=== PATIENT | male | born 1965 | race Caucasian/White ===

== ENCOUNTER → 2016-03-28 | Outpatient (CLI) | payer BC ==
[~2016-03-28] MED LIST: GABA300C3 PO; IBUP80TA PO; PERCOCET PO; SOMA350T PO
--- NOTE | 2016-04-05 02:13 | ECWPNPC ---
PATIENT NAME: TAMARA MONROY : 1965 GENDER: MALE VISIT DATE: 03/28/2016 DISCHARGE DATE: 03/28/16 0956 VISIT LOCKED DATE TIME: PHYSICIAN: YAS ROBERTSON RESOURCE: YAS ROBERTSON REASON FOR APPOINTMENT 1. 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 PAIN THE PATIENT DESCRIBES THE PAIN... THE PATIENT DESCRIBES THE PAIN... THE PATIENT DESCRIBES THE PAIN... THE PATIENT DESCRIBES THE PAIN... FALL RISK SCREENING: SCREENING :NO FALLS IN THE PAST YEAR CURRENT MEDICATIONS TAKING MULTIVITAMINS OTC TABLET 1 TABLET ORALLY ONCE A DAY TAKING GABAPENTIN 300 MG CAPSULE 1 CAPSULE ORALLY THREE TIMES A DAY TAKING WELLBUTRIN XL 300 MG TABLET EXTENDED RELEASE 24 HOUR 1 TABLET IN THE MORNING ORALLY ONCE A DAY TAKING SOMA 350 MG TABLET 1 TAB ORALLY QHS PRN MDD1 TAKING IBUPROFEN 800 MG TABLET 1 TABLET ORALLY THREE TIMES A DAY TAKING VITAMIN D 2000 UNIT CAPSULE 1 CAPSULE ORALLY ONCE A DAY TAKING PERCOCET 5-325 MG TABLET 1 TABLET NEEDED ORALLY EVERY 6 HRSMDD4 NOT-TAKING MUCINEX 600 MG TABLET EXTENDED RELEASE 12 HOUR 1 TABLET NEEDED ORALLY EVERY 12 HRS NOT-TAKING SUDAFED 30 MG TABLET 1 TABLET NEEDED ORALLY EVERY 6 HRS MEDICATION LIST REVIEWED AND RECONCILED WITH THE PATIENT PAST MEDICAL HISTORY CHRONIC LOW BACK PAIN - DDD RIGHT ARM PAIN - BICEPS TENDON RUPTURE - [facility]THO - S/P SURGICAL REPAIR 2013 WITH RESIDUAL NUMBNESS AND PAIN - MACROCYTIC ANEMIA PULMONARY NODULES - CHEST CT 09/25/13 - MILD COPD, OLD GRANULOMATOUS DISEASE WITH CALCIFIED 11MM NODULE IN LLL, CALCIFIED LEFT HILAR NODES. 3MM NONCALCIFIED PULMONARY NODULE JUST ADJACENT TO AND CONTINUOS WITH OTHER PULMONARY NODULE. RECOMMEND F/U CT CHEST 09/25. - F/U CT DONE 08/03/15 - CHRONIC CHANGES, STABLE 3 MM NODULE C/W 09/25/13 - NO FURTHER IMAGING NEEDED VITAMIN D DEFICIENCY ALLERGIES PENICILLIN (FOR ALLERGIES USE ONLY): TOLD A CHILD TO NOT TAKE: ALLERGY SOCIAL HISTORY GENERAL: TOBACCO USE ARE YOU A:CURRENT SMOKER LEARNING BARRIERS / SPECIAL NEEDS ORIENTED TO PLAN OF CARE: PATIENT, PAIN MANAGEMENT PATIENT, ORIENTED TO PLAN OF CARE: PATIENT, PAIN MANAGEMENT PATIENT. NEW PATIENT PAIN DIARY TODAY'S VISITNOTES FROM 0-10, WHAT LEVEL IS YOUR PAIN TODAY?0 PAIN CLINIC PFS, CLERGY, PUBLIC HEALTH REFERRALS PFS REFERRAL NEEDED?NO CLERGY REFERRAL NEEDED?NO PUBLIC HEALTH REFERRAL NEEDED?NO WAS THE PROVIDER NOTIFIED OF ANY PERTINENT INFO?NO PFS REFERRAL NEEDED?NO CLERGY REFERRAL NEEDED?NO PUBLIC HEALTH REFERRAL NEEDED?NO WAS THE PROVIDER NOTIFIED OF ANY PERTINENT INFO?NO REVIEW OF SYSTEMS CONSTITUTIONAL: ANY CHANGE IN YOUR MEDICAL CONDITION? NO . CHILLS NO . FEVER NO . INFECTION: DO YOU HAVE NEW INFECTIONS? NO . DO YOU HAVE HISTORY OF MRSA? NO . MUSCULOSKELETAL: ANY NEW PATTERNS OF PAIN OR NUMBNESS? YES, PAIN GOING DOWN RIGHT SIDE . GASTROENTEROLOGY: ANY NEW CHANGE IN BOWEL CONTROL? NO . GENITOURINARY: ANY NEW CHANGE IN BLADDER CONTROL? NO . IS THERE A CHANCE YOU COULD BE ? NO . HEMATOLOGY/LYMPH: DO YOU TAKE ANY BLOOD THINNERS? (FOR EXAMPLE- COUMADIN, PLAVIX, AGGRENOX, PLATEL, PRADAXA, OR XARELTO) NO . WHEN WAS YOUR LAST DOSE? DATE: TIME: . NEUROLOGY: HAVE YOU FALLEN IN THE PAST 6 MONTHS? YES, SATURDAY FELL DOWN WHILE TAKING A WASHER OUTSIDE . ANY NEW EXTREMITY NUMBNESS OR WEAKNESS? NO . CARDIOLOGY: DO YOU HAVE A PACEMAKER OR DEFIBRILLATOR? NO . RESPIRATORY: HAVE YOU BEEN SICK IN THE PAST WEEK? NO . FEVER NO . FLU LIKE SYMPTOMS? NO . COUGH NO . INTEGUMENTARY: DO YOU HAVE ANY RASHES OR OPEN SORES? NO . ALLERGIC/IMMUNO: ARE YOU ALLERGIC TO SHELLFISH OR IV DYE? NO . ANY NEW ALLERGIES? NO . PSYCHIATRIC: DO YOU HAVE THOUGHTS OF HURTING YOURSELF OR SOMEONE ELSE? NO . ARE YOU ABUSED, NEGLECTED, OR IN AN UNSAFE ENVIRONMENT? NO . ENDOCRINOLOGY: ARE YOU DIABETIC? NO . OTHER: DO YOU NEED ANY PRESCRIPTIONS? YES . IF YES, PLEASE LIST: GABAPENTIN . ANY NEW PROBLEMS WITH YOUR MEDICATIONS? NO . WHEN DID YOU LAST EAT? ____ . WHEN DID YOU LAST DRINK? ____ . WHAT DID YOU LAST DRINK? ____ . NAME OF PERSON DRIVING YOU HOME? ____ . DO YOU HAVE ANY OTHER QUESTIONS OR CONCERNS NO . REVIEWED BY: PROVIDER: YAS WHYTE . VITAL SIGNS WT 135 LBS, HT 69 IN, BMI 19.93 INDEX, BP 126/86 MM HG, HR 78 /MIN, RR 18 /MIN, TEMP 96.0 F, OXYGEN SAT % 97%, REVIEWED BY: CS. EXAMINATION GENERAL EXAMINATION: LUNGS:LUNG SOUNDS ARE CLEAR. HEART:HEART RATE REGULAR. MUSCULOSKELETAL:*, MUSCLE STRENGTH TESTING 03/18LEFT 04/15 RIGHT, PALPATION: + FOR PAIN OVER L/S SPINE. + FOR PAIN OVER PARASPINALS L>R.SPECIFIC POINT TENDERNESS LEFT SIJ.. 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 BRINGS IN MEDICATIONS WHICH IS APPROPRIATE FOR WHAT WAS DISPENSED. RECENT URINE TOXICOLOGY REVIEWED. NO UNAUTHORIZED MEDICATIONS. NO ILLICIT SUBSTANCES AND PRESCRIBED MEDICATIONS WERE PRESENT. , RISKS AND BENEFITS OF NARCOTIC/OPIOD MEDICATIONS WERE REVIEWED WITH PATIENT - THIS INCLUDES BUT IS NOT LIMITED TO RISK OF DEPENDANCE/DEVELOPMENT OF ADDICTION, MOOD DISTURBANCE AND DEPRESSION, OSTEOPOROSIS, HORMONAL AND LABIDAL CHANGES, RESPIRATORY DEPRESSION AND . PATIENT IS ADVISED NOT TO DRIVE WHILE ON THESE MEDICATIONS. PROCEDURE CODES FA211 ESTABILISHED PATIENT [facility] CHARGE DISPOSITION & COMMUNICATION FOLLOW UP 5 DAYS POST PROC (REASON: LEFT SIJ) ELECTRONICALLY SIGNED BY PATO DANIEL ON 04/04/2016 AT 07:48 PM EST DISCLAIMER : THIS IS A VISIT SUMMARY EXTRACTED FROM THE [employer] CHART. IT IS NOT A COPY OF THE [employer] PROGRESS NOTE. YULIET
== END ==
LOC: M PAIN 08:40
PROVIDERS: ATTEND Nurse Practitioner Family
DX: Z09 Encounter for follow-up examination after completed treatment for conditions other than malignant neoplasm (principal); G89.29 Other chronic pain; M53.3 Sacrococcygeal disorders, not elsewhere classified; D75.89 Other specified diseases of blood and blood-forming organs; E55.9 Vitamin D deficiency, unspecified; E78.5 Hyperlipidemia, unspecified; F17.210 Nicotine dependence, cigarettes, uncomplicated; F32.9 Major depressive disorder, single episode, unspecified; M51.17 Intervertebral disc disorders with radiculopathy, lumbosacral region; Z88.0 Allergy status to penicillin; Z79.1 Long term (current) use of non-steroidal anti-inflammatories (NSAID); Z79.891 Long term (current) use of opiate analgesic; Z79.899 Other long term (current) drug therapy

== ENCOUNTER → 2016-05-09 | Outpatient (CLI) | payer BC ==
[~2016-05-09] MED LIST changes: +GABA-282 PO; -GABA300C3 PO; +ISOVUE-M 300 61% 15ML VIAL (Q9967) As Ordered ONE; +LIDOCAINE 1% SDV INJ 30 ML VIAL As Ordered ONE; +diazePAM 5 MG TAB As Ordered ONE; +methylPREDNISolone SUSP 40 MG/ML (DEPO-medrol) VIAL (J1030) As Ordered ONE; +oxyCODONE 5MG TAB As Ordered ONE
--- NOTE | 2016-05-09 13:39 | REP ---
FLUOROSCOPIC GUIDANCE FOR LUMBAR EPIDURAL SPINE INJECTION: 05/09/2016 CLINICAL HISTORY: Low back pain. Two images from C-arm fluoroscopy are provided to Dr. Bates of the pain clinic. FINDINGS. The initial image shows a needle to the left of midline at L5-S1 with epidural contrast adjacent. Second image shows the needle removed. Fluoroscopy time: 9 sec Signed by Stephan Vogt MD 05/10/2016 10:42 A
--- NOTE | 2016-05-14 00:02 | ECWPNPC ---
PATIENT NAME: TAMARA MONROY : 1965 GENDER: MALE VISIT DATE: 05/09/2016 DISCHARGE DATE: 05/09/16 1031 VISIT LOCKED DATE TIME: PHYSICIAN: DONTA ISAAC RESOURCE: DONTA ISAAC REASON FOR APPOINTMENT 1. SIJ HISTORY OF PRESENT ILLNESS HISTORY OF PRESENT ILLNESS: PAIN THE PATIENT DESCRIBES THE PAIN... 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 BACK ONTO ME AND FELL CURRENT MEDICATIONS TAKING MULTIVITAMINS OTC TABLET 1 TABLET ORALLY ONCE A DAY, NOTES: 05/08/16@0800 TAKING GABAPENTIN 300 MG CAPSULE 1 CAPSULE ORALLY THREE TIMES A DAY, NOTES: 05/08/16@1800 TAKING IBUPROFEN 800 MG TABLET 1 TABLET ORALLY THREE TIMES A DAY, NOTES: 05/08/161800 TAKING PERCOCET 5-325 MG TABLET 1 TABLET NEEDED ORALLY EVERY 6 HRSMDD4, NOTES: 05/08/161800 TAKING VITAMIN D 2000 UNIT CAPSULE 1 CAPSULE ORALLY ONCE A DAY, NOTES: 05/08/16@0800 TAKING WELLBUTRIN XL 300 MG TABLET EXTENDED RELEASE 24 HOUR 1 TABLET IN THE MORNING ORALLY ONCE A DAY, NOTES: 05/08/16@0800 TAKING SOMA 350 MG TABLET 1 TAB ORALLY TID MDD3, NOTES: 05/08/16@1800 NOT-TAKING MUCINEX 600 MG TABLET EXTENDED RELEASE 12 HOUR 1 TABLET NEEDED ORALLY EVERY 12 HRS NOT-TAKING SUDAFED 30 MG TABLET 1 TABLET NEEDED ORALLY EVERY 6 HRS MEDICATION LIST REVIEWED AND RECONCILED WITH THE PATIENT PAST MEDICAL HISTORY CHRONIC LOW BACK PAIN - DDD RIGHT ARM PAIN - BICEPS TENDON RUPTURE - [facility]THO - S/P SURGICAL REPAIR 2013 WITH RESIDUAL NUMBNESS AND PAIN - MACROCYTIC ANEMIA PULMONARY NODULES - CHEST CT 09/25/13 - MILD COPD, OLD GRANULOMATOUS DISEASE WITH CALCIFIED 11MM NODULE IN LLL, CALCIFIED LEFT HILAR NODES. 3MM NONCALCIFIED PULMONARY NODULE JUST ADJACENT TO AND CONTINUOS WITH OTHER PULMONARY NODULE. RECOMMEND F/U CT CHEST 09/25. - F/U CT DONE 08/03/15 - CHRONIC CHANGES, STABLE 3 MM NODULE C/W 09/25/13 - NO FURTHER IMAGING NEEDED VITAMIN D DEFICIENCY ALLERGIES PENICILLIN (FOR ALLERGIES USE ONLY): TOLD A CHILD TO NOT TAKE: ALLERGY SOCIAL HISTORY GENERAL: TOBACCO USE ARE YOU A:CURRENT SMOKER HOW MANY CIGARETTES A DAY DO YOU SMOKE?5 OR LESS HOW SOON AFTER YOU WAKE UP DO YOU SMOKE YOUR FIRST CIGARETTE?31-60 MIN HOW OFTEN DO YOU SMOKE CIGARETTES?EVERY DAY PATIENT COUNSELED ON THE DANGERS OF TOBACCO USE AND URGED TO QUIT:05/09/2016 ARE YOU INTERESTED IN QUITTING?THINKING ABOUT QUITTING PREVIOUS QUIT ATTEMPTS?YES, WITHIN THE LAST 6 MONTHS. COUNSELED THE PATIENT ON SMOKING CESSATION, EDUCATION [id number] HE CONTINUES TO TRY TO CUT BACK ON WELLBUTRIN LUNG CANCER SCREENING SMOKING STATUS:CURRENT SMOKER IS THE PATIENT BETWEEN THE AGE OF 54 AND 76?NO ALCOHOL SCREENING DID YOU HAVE A DRINK CONTAINING ALCOHOL IN THE PAST YEAR?NO POINTS0 INTERPRETATIONNEGATIVE RECREATIONAL DRUG USE DRUG USE?NO CAFFEINE CAFFEINE USE?YES HOW OFTEN AND HOW MUCH? 5 CUPS A DAY SEXUAL HX HAD SEX IN THE LAST 12 MONTHS (VAGINAL, ORAL, OR ANAL)?YES HAVE YOU EVER HAD AN STD?NO WITHWOMEN ONLY USE PROTECTION?NO PREVENTION STRATEGIES DISCUSSED:OTHER OCCUPATION: [employer]. DIET: REGULAR. EXERCISE: DAILY. MARITAL STATUS: . YARSANISM NO [employer] BELIEFS THAT WOULD IMPACT HEALTH CARE. LANGUAGE [place]AN. EDUCATION SOME COLLEGE. LEARNING BARRIERS / SPECIAL NEEDS ORIENTED TO PLAN OF CARE: PATIENT, PAIN MANAGEMENT PATIENT, ORIENTED TO PLAN OF CARE: PATIENT, PAIN MANAGEMENT PATIENT. NEW PATIENT PAIN DIARY TODAY'S VISIT NOTES, FROM 0-10, WHAT LEVEL IS YOUR PAIN TODAY? 0. PAIN CLINIC PFS, CLERGY, PUBLIC HEALTH REFERRALS PFS REFERRAL NEEDED? NO, CLERGY REFERRAL NEEDED? NO, PUBLIC HEALTH REFERRAL NEEDED? NO, WAS THE PROVIDER NOTIFIED OF ANY PERTINENT INFO? NO, PFS REFERRAL NEEDED? NO, CLERGY REFERRAL NEEDED? NO, PUBLIC HEALTH REFERRAL NEEDED? NO, WAS THE PROVIDER NOTIFIED OF ANY PERTINENT INFO? NO. TRAVEL OUTSIDE US: NO. DOMESTIC VIOLENCE: NONE. REVIEW OF SYSTEMS CONSTITUTIONAL: ANY CHANGE IN YOUR MEDICAL CONDITION? NO . CHILLS NO . FEVER NO . INFECTION: DO YOU HAVE NEW INFECTIONS? NO . DO YOU HAVE HISTORY OF MRSA? NO . MUSCULOSKELETAL: ANY NEW PATTERNS OF PAIN OR NUMBNESS? NO . GASTROENTEROLOGY: ANY NEW CHANGE IN BOWEL CONTROL? NO . GENITOURINARY: ANY NEW CHANGE IN BLADDER CONTROL? NO . IS THERE A CHANCE YOU COULD BE ? NO . HEMATOLOGY/LYMPH: DO YOU TAKE ANY BLOOD THINNERS? (FOR EXAMPLE- COUMADIN, PLAVIX, AGGRENOX, PLATEL, PRADAXA, OR XARELTO) NO . WHEN WAS YOUR LAST DOSE? DATE: TIME: . NEUROLOGY: HAVE YOU FALLEN IN THE PAST 6 MONTHS? NO . ANY NEW EXTREMITY NUMBNESS OR WEAKNESS? NO . CARDIOLOGY: DO YOU HAVE A PACEMAKER OR DEFIBRILLATOR? NO . RESPIRATORY: HAVE YOU BEEN SICK IN THE PAST WEEK? NO . FEVER NO . FLU LIKE SYMPTOMS? NO . COUGH NO . INTEGUMENTARY: DO YOU HAVE ANY RASHES OR OPEN SORES? NO . ALLERGIC/IMMUNO: ARE YOU ALLERGIC TO SHELLFISH OR IV DYE? NO . ANY NEW ALLERGIES? NO . PSYCHIATRIC: DO YOU HAVE THOUGHTS OF HURTING YOURSELF OR SOMEONE ELSE? NO . ARE YOU ABUSED, NEGLECTED, OR IN AN UNSAFE ENVIRONMENT? NO . ENDOCRINOLOGY: ARE YOU DIABETIC? NO . OTHER: DO YOU NEED ANY PRESCRIPTIONS? NO . IF YES, PLEASE LIST: ____ . ANY NEW PROBLEMS WITH YOUR MEDICATIONS? NO . WHEN DID YOU LAST EAT? ____05/08/16 . WHEN DID YOU LAST DRINK? ____04/2816 . WHAT DID YOU LAST DRINK? ____COFFEE . NAME OF PERSON DRIVING YOU HOME? ____SUE . DO YOU HAVE ANY OTHER QUESTIONS OR CONCERNS NO . REVIEWED BY: PROVIDER: . VITAL SIGNS WT 138.0 LBS, HT 69 IN, BMI 20.38 INDEX, BP 134/90 MM HG, HR 71 /MIN, RR 16 /MIN, TEMP 97.9 F, OXYGEN SAT % 98, NA INITIALS TL 0902. ASSESSMENTS INTERVERTEBRAL DISC DISORDERS WITH RADICULOPATHY, LUMBOSACRAL REGION - M51.17 (PRIMARY) PROCEDURES PRE PROCEDURE DIAGNOSIS LUMBOSACRAL DISC DISORDER WITH RADICULOPATHY POST PROCEDURE DIAGNOSIS LUMBOSACRAL DISC DISORDER WITH RADICULOPATHY PROCEDURE LUMBAR EPIDURAL STEROID INJECTION UNDER FLUOROSCOPIC GUIDANCE SURGEON DR. DONTA ISAAC MERCANTILE AGENT NONE ANESTHESIA LOCAL PRE PROCEDURE NOTE THE PATIENT HAS A HISTORY OF CHRONIC LOW BACK PAIN. I EVALUATE THE PATIENT AND REVIEWED THE CHART. I WENT OVER THE RISKS, ALTERNATIVES, AND BENEFITS ASSOCIATED WITH THIS PROCEDURE. THE PATIENT WOULD LIKE TO PROCEED AND GIVE CONSENT TO PERFORMED THE PROCEDURE. THE PATIENT DENIES UNEXPLAINABLE WEIGHT LOSS, FEVER, CHILLS, OR NEW CHANGES IN URINARY OR BOWEL CONTROL DESCRIPTION OF PROCEDURE THE PATIENT WAS BROUGHT TO THE PROCEDURE ROOM AND PLACED IN THE PRONE POSITION. THE LUMBOSACRAL AREA WAS CLEANED WITH BETADINE SOLUTION AND DRAPED ASEPTICALLY. THE PROCEDURE WAS DONE UNDER STERILE CONDITIONS. I CHECKED LATERALITY AND THE LEVEL WHERE THE PROCEDURE WAS GOING TO BE PERFORMED WITH THE PATIENT AND THE SUPPORTING STAFF AT THE MOMENT OF THE TIME OUT IN THE PROCEDURE ROOM. UNDER FLUOROSCOPIC GUIDANCE, THE TARGET POINT WAS SELECTED AT THE INTERLAMINAR LEVEL OF L5-S1. LIDOCAINE WAS USED TO NUMB THE SKIN AND THE SUBCUTANEOUS TISSUE BELOW IT. EPIDURAL TUOHY NEEDLE, 17-GAUGE, WAS ADVANCED UNDER FLUOROSCOPIC GUIDANCE AND FOLLOWING PATIENT FEEDBACK UNTIL THE EPIDURAL SPACE WAS REACHED, 7 CM DEEP INTO THE SKIN BY THE LOSS OF RESISTANCE TECHNIQUE. ISOVUE M DYE 30%, 0.25 ML, WAS INJECTED SHOWING ADEQUATE SPREAD OF THE DYE. THEN, A SOLUTION OF 3 ML OF NORMAL SALINE WITH DEPO-MEDROL 60 MG WAS INJECTED SLOWLY FOLLOWING PATIENT FEEDBACK. THERE WAS NO EVIDENCE OF BLOOD, PARESTHESIA OR CEREBROSPINAL FLUID DURING THE PROCEDURE. THE PATIENT WAS SENT TO THE RECOVERY ROOM. THE PATIENT WAS MOVING THE EXTREMITIES AND DOING WELL. THERE WAS NO COMPLICATION DURING THE PROCEDURE. FLUOROSCOPY TIME WAS 9 SECONDS POST PROCEDURE NOTE THE PATIENT WILL BE SEEN IN A FOLLOW UP IN THE NEXT FEW WEEKS. INSTRUCTIONS WERE GIVEN, QUESTIONS WERE ANSWERED, AND THE PATIENT EXPRESSED UNDERSTANDING AND AGREES WITH THE PLAN. I, MARY JANE JURADO, DOCUMENTED THE ABOVE INFORMATION ACTING A SCRIBE FOR DR. ISAAC. I, DR. ISAAC, HAVE REVIEWED THE ABOVE DOCUMENT, SCRIBED BY MARY JANE JURADO, AND I VERIFY THAT IT IS ACCURATE DIAGNOSTIC IMAGING [facility] FLUORO GUIDE SPINE INJECTION (PAIN)[id number] PROCEDURE CODES 88478 LUMBAR/SACRAL W/ IMAGING 6045F RADXPS IN END [id number] PXD DISPOSITION & COMMUNICATION FOLLOW UP 3 WEEKS ELECTRONICALLY SIGNED BY DONTA ISAAC MD ON 05/13/2016 AT 09:42 PM EDT DISCLAIMER : THIS IS A VISIT SUMMARY EXTRACTED FROM THE [employer] CHART. IT IS NOT A COPY OF THE [employer] PROGRESS NOTE. MTDD
== END ==
LOC: M PAIN 08:40
PROVIDERS: ATTEND Anesthesiology
DX: G89.29 Other chronic pain (principal); M51.17 Intervertebral disc disorders with radiculopathy, lumbosacral region; J98.4 Other disorders of lung; E55.9 Vitamin D deficiency, unspecified; F17.200 Nicotine dependence, unspecified, uncomplicated; Z88.0 Allergy status to penicillin; Z79.1 Long term (current) use of non-steroidal anti-inflammatories (NSAID); Z79.891 Long term (current) use of opiate analgesic; Z79.899 Other long term (current) drug therapy
CPT/HCPCS: 62323; J1030; Q9967

== ENCOUNTER → 2016-06-06 | Outpatient (CLI) | payer BC ==
[~2016-06-06] MED LIST changes: -ISOVUE-M 300 61% 15ML VIAL (Q9967) As Ordered ONE; -LIDOCAINE 1% SDV INJ 30 ML VIAL As Ordered ONE; -diazePAM 5 MG TAB As Ordered ONE; -methylPREDNISolone SUSP 40 MG/ML (DEPO-medrol) VIAL (J1030) As Ordered ONE; -oxyCODONE 5MG TAB As Ordered ONE
--- NOTE | 2016-06-07 00:28 | ECWPNPC ---
PATIENT NAME: TAMARA MONROY : 1965 GENDER: MALE VISIT DATE: 06/06/2016 DISCHARGE DATE: 06/06/16 0937 VISIT LOCKED DATE TIME: PHYSICIAN: YAS ROBERTSON RESOURCE: YAS ROBERTSON REASON FOR APPOINTMENT 1. POST PROCEDURE HISTORY OF PRESENT ILLNESS HISTORY OF PRESENT ILLNESS: HERE FOR POST PROCEDURE F/U.HAD LESI ON 05-09-16.REPORTS >50% IMPROVEMENT IN PAIN POST PROCEDURE.RATING PAIN VAS 3/10.REPORTS INTERMITTENT ACHING. PAIN IS AGGREVATED BY LIFTING,BENDING AND WALKING.USING SOMA,PERCOCET AND IBUPROFEN PRN FOR SEVERE PAIN.REPORTS PERIODIC BILATERAL LEG PAIN L>R. PAIN THE PATIENT DESCRIBES THE PAIN... FALL RISK SCREENING: SCREENING :NO FALLS IN THE PAST YEAR CURRENT MEDICATIONS TAKING MULTIVITAMINS OTC TABLET 1 TABLET ORALLY ONCE A DAY TAKING GABAPENTIN 300 MG CAPSULE 1 CAPSULE ORALLY THREE TIMES A DAY TAKING IBUPROFEN 800 MG TABLET 1 TABLET ORALLY THREE TIMES A DAY TAKING VITAMIN D 2000 UNIT CAPSULE 1 CAPSULE ORALLY ONCE A DAY TAKING WELLBUTRIN XL 300 MG TABLET EXTENDED RELEASE 24 HOUR 1 TABLET IN THE MORNING ORALLY ONCE A DAY TAKING PERCOCET 5-325 MG TABLET 1 TABLET NEEDED ORALLY EVERY 6 HRS PRN MDD4 TAKING SOMA 350 MG TABLET 1 TABLET NEEDED ORALLY ONCE DAILY PRN MDD1 NOT-TAKING SOMA 350 MG TABLET 1 TAB ORALLY TID MDD3 NOT-TAKING MUCINEX 600 MG TABLET EXTENDED RELEASE 12 HOUR 1 TABLET NEEDED ORALLY EVERY 12 HRS NOT-TAKING SUDAFED 30 MG TABLET 1 TABLET NEEDED ORALLY EVERY 6 HRS MEDICATION LIST REVIEWED AND RECONCILED WITH THE PATIENT PAST MEDICAL HISTORY CHRONIC LOW BACK PAIN - DDD RIGHT ARM PAIN - BICEPS TENDON RUPTURE - [facility] ORTHO - S/P SURGICAL REPAIR 2013 WITH RESIDUAL NUMBNESS AND PAIN - MACROCYTIC ANEMIA PULMONARY NODULES - CHEST CT 09/25/13 - MILD COPD, OLD GRANULOMATOUS DISEASE WITH CALCIFIED 11MM NODULE IN LLL, CALCIFIED LEFT HILAR NODES. 3MM NONCALCIFIED PULMONARY NODULE JUST ADJACENT TO AND CONTINUOS WITH OTHER PULMONARY NODULE. RECOMMEND F/U CT CHEST 09/25. - F/U CT DONE 08/03/15 - CHRONIC CHANGES, STABLE 3 MM NODULE C/W 09/25/13 - NO FURTHER IMAGING NEEDED VITAMIN D DEFICIENCY ALLERGIES PENICILLIN (FOR ALLERGIES USE ONLY): TOLD A CHILD TO NOT TAKE: ALLERGY SOCIAL HISTORY GENERAL: PAIN CLINIC PFS, CLERGY, PUBLIC HEALTH REFERRALS CLERGY REFERRAL NEEDED?NO WAS THE PROVIDER NOTIFIED OF ANY PERTINENT INFO?NO PFS REFERRAL NEEDED?NO PUBLIC HEALTH REFERRAL NEEDED?NO PATIENT: ____. REVIEW OF SYSTEMS CONSTITUTIONAL: ANY CHANGE IN YOUR MEDICAL CONDITION? NO . CHILLS NO . FEVER NO . INFECTION: DO YOU HAVE NEW INFECTIONS? NO . DO YOU HAVE HISTORY OF MRSA? NO . MUSCULOSKELETAL: ANY NEW PATTERNS OF PAIN OR NUMBNESS? NO . GASTROENTEROLOGY: ANY NEW CHANGE IN BOWEL CONTROL? NO . GENITOURINARY: ANY NEW CHANGE IN BLADDER CONTROL? NO . IS THERE A CHANCE YOU COULD BE ? NO . HEMATOLOGY/LYMPH: DO YOU TAKE ANY BLOOD THINNERS? (FOR EXAMPLE- COUMADIN, PLAVIX, AGGRENOX, PLATEL, PRADAXA, OR XARELTO) NO . WHEN WAS YOUR LAST DOSE? DATE: TIME: . NEUROLOGY: HAVE YOU FALLEN IN THE PAST 6 MONTHS? NO . ANY NEW EXTREMITY NUMBNESS OR WEAKNESS? NO . CARDIOLOGY: DO YOU HAVE A PACEMAKER OR DEFIBRILLATOR? NO . RESPIRATORY: HAVE YOU BEEN SICK IN THE PAST WEEK? NO . FEVER NO . FLU LIKE SYMPTOMS? NO . COUGH NO . INTEGUMENTARY: DO YOU HAVE ANY RASHES OR OPEN SORES? NO . ALLERGIC/IMMUNO: ARE YOU ALLERGIC TO SHELLFISH OR IV DYE? NO . ANY NEW ALLERGIES? NO . PSYCHIATRIC: DO YOU HAVE THOUGHTS OF HURTING YOURSELF OR SOMEONE ELSE? NO . ARE YOU ABUSED, NEGLECTED, OR IN AN UNSAFE ENVIRONMENT? NO . ENDOCRINOLOGY: ARE YOU DIABETIC? NO . OTHER: DO YOU NEED ANY PRESCRIPTIONS? NO . IF YES, PLEASE LIST: ____ . ANY NEW PROBLEMS WITH YOUR MEDICATIONS? NO . WHEN DID YOU LAST EAT? ____ . WHEN DID YOU LAST DRINK? ____ . WHAT DID YOU LAST DRINK? ____ . NAME OF PERSON DRIVING YOU HOME? ____ . DO YOU HAVE ANY OTHER QUESTIONS OR CONCERNS NO . REVIEWED BY: PROVIDER: YAS WHYTE . VITAL SIGNS WT 138 LBS, HT 69 IN, BMI 20.38 INDEX, BP 130/84 MM HG, HR 65 /MIN, RR 18 /MIN, TEMP 98.3 F, OXYGEN SAT % 100%, REVIEWED BY: TARA (DONE AT 0857). EXAMINATION GENERAL EXAMINATION: LUNGS:LUNG SOUNDS ARE CLEAR. HEART:HEART RATE REGULAR. MUSCULOSKELETAL:*, MUSCLE STRENGTH TESTING 5/5LEFT 5/5 RIGHT, PALPATION: NEGATIVE FOR PAIN OVER L/S SPINE. NEGATIVE FOR PAIN OVER PARASPINALS.. ASSESSMENTS INTERVERTEBRAL DISC DISORDERS WITH RADICULOPATHY, LUMBOSACRAL REGION - M51.17 (PRIMARY) CHRONIC PRESCRIPTION OPIATE USE - Z79.891 TREATMENT INTERVERTEBRAL DISC DISORDERS WITH RADICULOPATHY, LUMBOSACRAL REGION CONTINUE IBUPROFEN TABLET, 800 MG, 1 TABLET, ORALLY, THREE TIMES A DAY REFILL PERCOCET TABLET, 5-325 MG, 1 TABLET NEEDED, ORALLY, EVERY 6 HRS PRN MDD4, 30 DAY(S), 120, REFILLS 0 REFILL SOMA TABLET, 350 MG, 1 TABLET NEEDED, ORALLY, ONCE DAILY PRN MDD1, 30 DAY(S), 30, REFILLS 1 PROCEDURE CODES FA211 ESTABILISHED PATIENT [facility] CHARGE DISPOSITION & COMMUNICATION FOLLOW UP 4 WEEKS ELECTRONICALLY SIGNED BY PATO DANIEL ON 06/06/2016 AT 11:50 AM EDT DISCLAIMER : THIS IS A VISIT SUMMARY EXTRACTED FROM THE [email or web address] CHART. IT IS NOT A COPY OF THE [email or web address] PROGRESS NOTE. YULIET
== END ==
LOC: M PAIN 09:00
PROVIDERS: ATTEND Nurse Practitioner Family
DX: G89.29 Other chronic pain (principal); M51.17 Intervertebral disc disorders with radiculopathy, lumbosacral region; D75.89 Other specified diseases of blood and blood-forming organs; E55.9 Vitamin D deficiency, unspecified; Z88.0 Allergy status to penicillin; Z79.1 Long term (current) use of non-steroidal anti-inflammatories (NSAID); Z79.891 Long term (current) use of opiate analgesic; Z79.899 Other long term (current) drug therapy

== ENCOUNTER → 2016-07-04 | Outpatient (CLI) | payer BC ==
--- NOTE | 2016-07-05 00:18 | ECWPNPC ---
PATIENT NAME: TAMARA MONROY : 1965 GENDER: MALE VISIT DATE: 07/04/2016 DISCHARGE DATE: 07/04/16 1011 VISIT LOCKED DATE TIME: PHYSICIAN: YAS ROBERTSON RESOURCE: YAS ROBERTSON REASON FOR APPOINTMENT 1. LOW BACK HISTORY OF PRESENT ILLNESS HISTORY OF PRESENT ILLNESS: HERE FOR F/U OF CHRONIC LBP WITH RADIATION INTO LEFT BUTTOCKS.HAD LESI ON 05-09-16.REPORTED >50% IMPROVEMENT IN PAIN POST PROCEDURE.STATES PAIN IS BEGINING TO RETURN.RATING PAIN VAS 4/10.REPORTS INTERMITTENT ACHING. PAIN IS AGGREVATED BY LIFTING,BENDING AND WALKING.USING SOMA,PERCOCET AND IBUPROFEN PRN FOR SEVERE PAIN.REPORTS PERIODIC BILATERAL LEG PAIN L>R. PAIN THE PATIENT DESCRIBES THE PAIN... THE PATIENT DESCRIBES THE PAIN... FALL RISK SCREENING: SCREENING :NO FALLS IN THE PAST YEAR CURRENT MEDICATIONS TAKING MULTIVITAMINS OTC TABLET 1 TABLET ORALLY ONCE A DAY TAKING VITAMIN D 2000 UNIT CAPSULE 1 CAPSULE ORALLY ONCE A DAY TAKING WELLBUTRIN XL 300 MG TABLET EXTENDED RELEASE 24 HOUR 1 TABLET IN THE MORNING ORALLY ONCE A DAY TAKING IBUPROFEN 800 MG TABLET 1 TABLET ORALLY THREE TIMES A DAY TAKING GABAPENTIN 300 MG CAPSULE 1 CAPSULE ORALLY THREE TIMES A DAY TAKING SOMA 350 MG TABLET 1 TABLET NEEDED ORALLY ONCE DAILY PRN MDD1 TAKING PERCOCET 5-325 MG TABLET 1 TABLET NEEDED ORALLY EVERY 6 HRS PRN MDD4 NOT-TAKING SOMA 350 MG TABLET 1 TAB ORALLY TID MDD3 NOT-TAKING MUCINEX 600 MG TABLET EXTENDED RELEASE 12 HOUR 1 TABLET NEEDED ORALLY EVERY 12 HRS NOT-TAKING SUDAFED 30 MG TABLET 1 TABLET NEEDED ORALLY EVERY 6 HRS MEDICATION LIST REVIEWED AND RECONCILED WITH THE PATIENT PAST MEDICAL HISTORY CHRONIC LOW BACK PAIN - DDD RIGHT ARM PAIN - BICEPS TENDON RUPTURE - [facility]TH[facility] - S/P SURGICAL REPAIR 2013 WITH RESIDUAL NUMBNESS AND PAIN - MACROCYTIC ANEMIA PULMONARY NODULES - CHEST CT 09/25/13 - MILD COPD, OLD GRANULOMATOUS DISEASE WITH CALCIFIED 11MM NODULE IN LLL, CALCIFIED LEFT HILAR NODES. 3MM NONCALCIFIED PULMONARY NODULE JUST ADJACENT TO AND CONTINUOS WITH OTHER PULMONARY NODULE. RECOMMEND F/U CT CHEST 09/25. - F/U CT DONE 08/03/15 - CHRONIC CHANGES, STABLE 3 MM NODULE C/W 09/25/13 - NO FURTHER IMAGING NEEDED VITAMIN D DEFICIENCY ALLERGIES PENICILLIN (FOR ALLERGIES USE ONLY): TOLD A CHILD TO NOT TAKE: ALLERGY SURGICAL HISTORY NO SURGICAL HISTORY DOCUMENTED. REVIEW OF SYSTEMS CONSTITUTIONAL: ANY CHANGE IN YOUR MEDICAL CONDITION? NO . CHILLS NO . FEVER NO . INFECTION: DO YOU HAVE NEW INFECTIONS? NO . DO YOU HAVE HISTORY OF MRSA? NO . MUSCULOSKELETAL: ANY NEW PATTERNS OF PAIN OR NUMBNESS? YES. PT REPORTS PAIN IS INCREASING TO BASELINE 4/10, WITH PEAKING OF 6/10. PT TAKES SCRIPTS DIRECTED AND BRINGS PAIN BACK DOWN TO 4/10. . GASTROENTEROLOGY: ANY NEW CHANGE IN BOWEL CONTROL? NO . GENITOURINARY: ANY NEW CHANGE IN BLADDER CONTROL? NO . IS THERE A CHANCE YOU COULD BE ? NO . HEMATOLOGY/LYMPH: DO YOU TAKE ANY BLOOD THINNERS? (FOR EXAMPLE- COUMADIN, PLAVIX, AGGRENOX, PLATEL, PRADAXA, OR XARELTO) NO . WHEN WAS YOUR LAST DOSE? DATE: TIME: . NEUROLOGY: HAVE YOU FALLEN IN THE PAST 6 MONTHS? NO . ANY NEW EXTREMITY NUMBNESS OR WEAKNESS? NO . CARDIOLOGY: DO YOU HAVE A PACEMAKER OR DEFIBRILLATOR? NO . RESPIRATORY: HAVE YOU BEEN SICK IN THE PAST WEEK? NO . FEVER NO . FLU LIKE SYMPTOMS? NO . COUGH NO . INTEGUMENTARY: DO YOU HAVE ANY RASHES OR OPEN SORES? NO . ALLERGIC/IMMUNO: ARE YOU ALLERGIC TO SHELLFISH OR IV DYE? NO . ANY NEW ALLERGIES? NO . PSYCHIATRIC: DO YOU HAVE THOUGHTS OF HURTING YOURSELF OR SOMEONE ELSE? NO . ARE YOU ABUSED, NEGLECTED, OR IN AN UNSAFE ENVIRONMENT? NO . ENDOCRINOLOGY: ARE YOU DIABETIC? NO . OTHER: DO YOU NEED ANY PRESCRIPTIONS? YES, IBUPROFEN, GABAPENTIN . IF YES, PLEASE LIST: ____ . ANY NEW PROBLEMS WITH YOUR MEDICATIONS? NO . WHEN DID YOU LAST EAT? ____ . WHEN DID YOU LAST DRINK? ____ . WHAT DID YOU LAST DRINK? ____ . NAME OF PERSON DRIVING YOU HOME? ____ . DO YOU HAVE ANY OTHER QUESTIONS OR CONCERNS NO . REVIEWED BY: PROVIDER: YAS WHYTE . VITAL SIGNS WT 136.0 LBS, HT 69 IN, BMI 20.08 INDEX, BP 136/92 MM HG, HR 83 /MIN, RR 16 /MIN, TEMP 97.8 F, OXYGEN SAT % 98%, SAFE IN ENV? (Y/N) Y, NA INITIALS TL 0917, REVIEWED BY: ELFEGO. EXAMINATION GENERAL EXAMINATION: LUNGS:LUNG SOUNDS ARE CLEAR. HEART:HEART RATE REGULAR. MUSCULOSKELETAL:*, MUSCLE STRENGTH TESTING 5/5LEFT 5/5 RIGHT, PALPATION: NEGATIVE FOR PAIN OVER L/S SPINE. NEGATIVE FOR PAIN OVER PARASPINALS.. ASSESSMENTS INTERVERTEBRAL DISC DISORDERS WITH RADICULOPATHY, LUMBOSACRAL REGION - M51.17 (PRIMARY) CHRONIC PRESCRIPTION OPIATE USE - Z79.891 TREATMENT INTERVERTEBRAL DISC DISORDERS WITH RADICULOPATHY, LUMBOSACRAL REGION CONTINUE GABAPENTIN CAPSULE, 300 MG, 1 CAPSULE, ORALLY, THREE TIMES A DAY REFILL SOMA TABLET, 350 MG, 1 TABLET NEEDED, ORALLY, ONCE DAILY PRN MDD1, 30 DAY(S), 30, REFILLS 1 REFILL PERCOCET TABLET, 5-325 MG, 1 TABLET NEEDED, ORALLY, EVERY 6 HRS PRN MDD4, 30 DAY(S), 120, REFILLS 0 NOTES: I AM GOING TO REQUEST A LUMBAR INTERLAMINAR EPIDURAL STEROID INJECTION L4/5. PROCEDURE CODES FA211 ESTABILISHED PATIENT [facility] FACILITY CHARGE DISPOSITION & COMMUNICATION FOLLOW UP 2WK POST (REASON: L4/5 LESI) ELECTRONICALLY SIGNED BY PATO DANIEL ON 07/04/2016 AT 02:28 PM EDT DISCLAIMER : THIS IS A VISIT SUMMARY EXTRACTED FROM THE [email or web address] CHART. IT IS NOT A COPY OF THE [email or web address] PROGRESS NOTE. YULIET
== END ==
LOC: M PAIN 09:00
PROVIDERS: ATTEND Nurse Practitioner Family
DX: G89.29 Other chronic pain (principal); M51.17 Intervertebral disc disorders with radiculopathy, lumbosacral region; D75.89 Other specified diseases of blood and blood-forming organs; E55.9 Vitamin D deficiency, unspecified; E78.5 Hyperlipidemia, unspecified; F17.200 Nicotine dependence, unspecified, uncomplicated; Z88.0 Allergy status to penicillin; Z79.1 Long term (current) use of non-steroidal anti-inflammatories (NSAID); Z79.899 Other long term (current) drug therapy

== ENCOUNTER → 2016-07-18 | Outpatient (CLI) | payer BC ==
[~2016-07-18] MED LIST changes: +ISOVUE-M 300 61% 15ML VIAL (Q9967) As Ordered ONE; +LIDOCAINE 1% SDV INJ 30 ML VIAL As Ordered ONE; +SUBO12MI SL; +diazePAM 5 MG TAB As Ordered ONE; +methylPREDNISolone SUSP 40 MG/ML (DEPO-medrol) VIAL (J1030) As Ordered ONE; +oxyCODONE 5MG TAB As Ordered ONE
--- NOTE | 2016-07-18 11:59 | REP ---
PARTIAL LUMBAR SPINE SERIES: Four views. HISTORY: Lumbar epidural for pain. 16 seconds of fluoroscopy time is reported. FINDINGS: A sequence of four fluoroscopically obtained last image hold spot radiographs of the lumbosacral junction document needle position and contrast injection associated with epidural injection procedure. Signed by Jonathan Nichols MD 07/18/2016 01:39 P
--- NOTE | 2016-07-31 01:52 | ECWPNPC ---
PATIENT NAME: TAMARA MONROY : 1965 GENDER: MALE VISIT DATE: 07/18/2016 DISCHARGE DATE: 07/18/16 1135 VISIT LOCKED DATE TIME: PHYSICIAN: DONTA ISAAC RESOURCE: DONTA ISAAC REASON FOR APPOINTMENT 1. LESI HISTORY OF PRESENT ILLNESS HISTORY OF PRESENT ILLNESS: PAIN THE PATIENT DESCRIBES THE PAIN... FALL RISK SCREENING: SCREENING :NO FALLS IN THE PAST YEAR CURRENT MEDICATIONS TAKING MULTIVITAMINS OTC TABLET 1 TABLET ORALLY ONCE A DAY, NOTES: 07/18/1999 TAKING VITAMIN D 2000 UNIT CAPSULE 1 CAPSULE ORALLY ONCE A DAY, NOTES: TAKING WELLBUTRIN XL 300 MG TABLET EXTENDED RELEASE 24 HOUR 1 TABLET IN THE MORNING ORALLY ONCE A DAY, NOTES: TAKING GABAPENTIN 300 MG CAPSULE 1 CAPSULE ORALLY THREE TIMES A DAY, NOTES: TAKING SOMA 350 MG TABLET 1 TABLET NEEDED ORALLY ONCE DAILY PRN MDD1, NOTES: 07/17/2199 TAKING PERCOCET 5-325 MG TABLET 1 TABLET NEEDED ORALLY EVERY 6 HRS PRN MDD4, NOTES: 07/18/1999 TAKING IBUPROFEN 800 MG TABLET 1 TABLET ORALLY THREE TIMES A DAY, NOTES: 07/18/1999 NOT-TAKING SOMA 350 MG TABLET 1 TAB ORALLY TID MDD3 NOT-TAKING MUCINEX 600 MG TABLET EXTENDED RELEASE 12 HOUR 1 TABLET NEEDED ORALLY EVERY 12 HRS NOT-TAKING SUDAFED 30 MG TABLET 1 TABLET NEEDED ORALLY EVERY 6 HRS MEDICATION LIST REVIEWED AND RECONCILED WITH THE PATIENT PAST MEDICAL HISTORY CHRONIC LOW BACK PAIN - DDD RIGHT ARM PAIN - BICEPS TENDON RUPTURE - [facility] - S/P SURGICAL REPAIR 2013 WITH RESIDUAL NUMBNESS AND PAIN - MACROCYTIC ANEMIA PULMONARY NODULES - CHEST CT 09/25/13 - MILD COPD, OLD GRANULOMATOUS DISEASE WITH CALCIFIED 11MM NODULE IN LLL, CALCIFIED LEFT HILAR NODES. 3MM NONCALCIFIED PULMONARY NODULE JUST ADJACENT TO AND CONTINUOS WITH OTHER PULMONARY NODULE. RECOMMEND F/U CT CHEST 09/25. - F/U CT DONE 08/03/15 - CHRONIC CHANGES, STABLE 3 MM NODULE C/W 09/25/13 - NO FURTHER IMAGING NEEDED VITAMIN D DEFICIENCY ALLERGIES PENICILLIN (FOR ALLERGIES USE ONLY): TOLD A CHILD TO NOT TAKE: ALLERGY REVIEW OF SYSTEMS CONSTITUTIONAL: ANY CHANGE IN YOUR MEDICAL CONDITION? NO . CHILLS NO . FEVER NO . INFECTION: DO YOU HAVE NEW INFECTIONS? NO . DO YOU HAVE HISTORY OF MRSA? NO . MUSCULOSKELETAL: ANY NEW PATTERNS OF PAIN OR NUMBNESS? NO . GASTROENTEROLOGY: ANY NEW CHANGE IN BOWEL CONTROL? NO . GENITOURINARY: ANY NEW CHANGE IN BLADDER CONTROL? NO . IS THERE A CHANCE YOU COULD BE ? NO . HEMATOLOGY/LYMPH: DO YOU TAKE ANY BLOOD THINNERS? (FOR EXAMPLE- COUMADIN, PLAVIX, AGGRENOX, PLATEL, PRADAXA, OR XARELTO) NO . WHEN WAS YOUR LAST DOSE? DATE: TIME: . NEUROLOGY: HAVE YOU FALLEN IN THE PAST 6 MONTHS? NO . ANY NEW EXTREMITY NUMBNESS OR WEAKNESS? NO . CARDIOLOGY: DO YOU HAVE A PACEMAKER OR DEFIBRILLATOR? NO . RESPIRATORY: HAVE YOU BEEN SICK IN THE PAST WEEK? NO . FEVER NO . FLU LIKE SYMPTOMS? NO . COUGH NO . INTEGUMENTARY: DO YOU HAVE ANY RASHES OR OPEN SORES? NO . ALLERGIC/IMMUNO: ARE YOU ALLERGIC TO SHELLFISH OR IV DYE? NO . ANY NEW ALLERGIES? NO . PSYCHIATRIC: DO YOU HAVE THOUGHTS OF HURTING YOURSELF OR SOMEONE ELSE? NO . ARE YOU ABUSED, NEGLECTED, OR IN AN UNSAFE ENVIRONMENT? NO . ENDOCRINOLOGY: ARE YOU DIABETIC? NO . OTHER: DO YOU NEED ANY PRESCRIPTIONS? NO . IF YES, PLEASE LIST: ____ . ANY NEW PROBLEMS WITH YOUR MEDICATIONS? NO . WHEN DID YOU LAST EAT? LAST NIGHT . WHEN DID YOU LAST DRINK? LAST NIGHT . WHAT DID YOU LAST DRINK? COFFEE . NAME OF PERSON DRIVING YOU HOME? SHARON . DO YOU HAVE ANY OTHER QUESTIONS OR CONCERNS NO . REVIEWED BY: PROVIDER: . VITAL SIGNS WT 136.0 LBS, HT 69 IN, BMI 20.08 INDEX, BP 106/72 MM HG, HR 77 /MIN, RR 16 /MIN, TEMP 98.2 F, OXYGEN SAT % 96%, NA INITIALS SC 10:24, REVIEWED BY: NL. ASSESSMENTS INTERVERTEBRAL DISC DISORDERS WITH RADICULOPATHY, LUMBOSACRAL REGION - M51.17 (PRIMARY) PROCEDURES PRE PROCEDURE DIAGNOSIS LUMBOSACRAL DISC DISORDER WITH RADICULOPATHY POST PROCEDURE DIAGNOSIS LUMBOSACRAL DISC DISORDER WITH RADICULOPATHY PROCEDURE LUMBAR EPIDURAL STEROID INJECTION UNDER FLUOROSCOPIC GUIDANCE SURGEON DR. DONTA ISAAC BIKE SHOP MANAGER NONE ANESTHESIA LOCAL PRE PROCEDURE NOTE THE PATIENT HAS A HISTORY OF CHRONIC LOW BACK PAIN. I EVALUATE THE PATIENT AND REVIEWED THE CHART. I WENT OVER THE RISKS, ALTERNATIVES, AND BENEFITS ASSOCIATED WITH THIS PROCEDURE. THE PATIENT WOULD LIKE TO PROCEED AND GIVE CONSENT TO PERFORMED THE PROCEDURE. THE PATIENT DENIES UNEXPLAINABLE WEIGHT LOSS, FEVER, CHILLS, OR NEW CHANGES IN URINARY OR BOWEL CONTROL DESCRIPTION OF PROCEDURE THE PATIENT WAS BROUGHT TO THE PROCEDURE ROOM AND PLACED IN THE PRONE POSITION. THE LUMBOSACRAL AREA WAS CLEANED WITH BETADINE SOLUTION AND DRAPED ASEPTICALLY. THE PROCEDURE WAS DONE UNDER STERILE CONDITIONS. I CHECKED LATERALITY AND THE LEVEL WHERE THE PROCEDURE WAS GOING TO BE PERFORMED WITH THE PATIENT AND THE SUPPORTING STAFF AT THE MOMENT OF THE TIME OUT IN THE PROCEDURE ROOM. UNDER FLUOROSCOPIC GUIDANCE, THE TARGET POINT WAS SELECTED AT THE INTERLAMINAR LEVEL OF L5-S1. LIDOCAINE WAS USED TO NUMB THE SKIN AND THE SUBCUTANEOUS TISSUE BELOW IT. EPIDURAL TUOHY NEEDLE, 17-GAUGE, WAS ADVANCED UNDER FLUOROSCOPIC GUIDANCE AND FOLLOWING PATIENT FEEDBACK UNTIL THE EPIDURAL SPACE WAS REACHED, 7 CM DEEP INTO THE SKIN BY THE LOSS OF RESISTANCE TECHNIQUE. ISOVUE M DYE 30%, 0.25 ML, WAS INJECTED SHOWING ADEQUATE SPREAD OF THE DYE. THEN, A SOLUTION OF 3 ML OF NORMAL SALINE WITH DEPO-MEDROL 60 MG WAS INJECTED SLOWLY FOLLOWING PATIENT FEEDBACK. THERE WAS NO EVIDENCE OF BLOOD, PARESTHESIA OR CEREBROSPINAL FLUID DURING THE PROCEDURE. THE PATIENT WAS SENT TO THE RECOVERY ROOM. THE PATIENT WAS MOVING THE EXTREMITIES AND DOING WELL. THERE WAS NO COMPLICATION DURING THE PROCEDURE. FLUOROSCOPY TIME WAS 16 SECONDS POST PROCEDURE NOTE THE PATIENT WILL BE SEEN IN A FOLLOW UP IN THE NEXT FEW WEEKS. INSTRUCTIONS WERE GIVEN, QUESTIONS WERE ANSWERED, AND THE PATIENT EXPRESSED UNDERSTANDING AND AGREES WITH THE PLAN. I, MARY JANE JURADO, DOCUMENTED THE ABOVE INFORMATION ACTING A SCRIBE FOR DR. ISAAC. I HAVE REVIEWED THE ABOVE DOCUMENT, WRITTEN BY MARY JANE DEVI AND I VERIFY THAT IT IS ACCURATE DIAGNOSTIC IMAGING [facility] FLUORO GUIDE SPINE INJECTION (PAIN)[id number] PROCEDURE CODES 34640 LUMBAR/SACRAL W/ IMAGING 6045F RADXPS IN END [id number] PXD DISPOSITION & COMMUNICATION FOLLOW UP 3 WEEKS ELECTRONICALLY SIGNED BY DONTA ISAAC MD ON 07/30/2016 AT 03:19 PM EDT DISCLAIMER : THIS IS A VISIT SUMMARY EXTRACTED FROM THE [employer] CHART. IT IS NOT A COPY OF THE [employer] PROGRESS NOTE. MTDD
== END ==
LOC: M PAIN 10:20
PROVIDERS: ATTEND Anesthesiology
DX: G89.29 Other chronic pain (principal); M51.17 Intervertebral disc disorders with radiculopathy, lumbosacral region; E78.5 Hyperlipidemia, unspecified; F17.200 Nicotine dependence, unspecified, uncomplicated; E55.9 Vitamin D deficiency, unspecified; F32.9 Major depressive disorder, single episode, unspecified; D75.89 Other specified diseases of blood and blood-forming organs; Z88.0 Allergy status to penicillin; Z79.1 Long term (current) use of non-steroidal anti-inflammatories (NSAID); Z79.899 Other long term (current) drug therapy
CPT/HCPCS: 62323; J1030; Q9967

== ENCOUNTER → 2016-08-08 | Outpatient (CLI) | payer BC ==
[~2016-08-08] MED LIST changes: -ISOVUE-M 300 61% 15ML VIAL (Q9967) As Ordered ONE; -LIDOCAINE 1% SDV INJ 30 ML VIAL As Ordered ONE; -diazePAM 5 MG TAB As Ordered ONE; -methylPREDNISolone SUSP 40 MG/ML (DEPO-medrol) VIAL (J1030) As Ordered ONE; -oxyCODONE 5MG TAB As Ordered ONE
--- NOTE | 2016-08-09 00:13 | ECWPNPC ---
PATIENT NAME: TAMARA MONROY : 1965 GENDER: MALE VISIT DATE: 08/08/2016 DISCHARGE DATE: 08/08/16928 VISIT LOCKED DATE TIME: PHYSICIAN: YAS ROBERTSON RESOURCE: YAS ROBERTSON REASON FOR APPOINTMENT 1. POST LE HISTORY OF PRESENT ILLNESS HISTORY OF PRESENT ILLNESS: HERE FOR POST PROCEDURE F/U.HAD LESI ON 07-18-16.REPORTS >50% IMPROVEMENT IN PAIN POST PROCEDURE.RATING PAIN VAS 3/10.REPORTS INTERMITTENT ACHING. PAIN IS AGGREVATED BY LIFTING,BENDING AND WALKING.USING SOMA,PERCOCET AND IBUPROFEN PRN FOR SEVERE PAIN.REPORTS PERIODIC BILATERAL LEG PAIN L>R. PAIN THE PATIENT DESCRIBES THE PAIN... THE PATIENT DESCRIBES THE PAIN... FALL RISK SCREENING: SCREENING :NO FALLS IN THE PAST YEAR CURRENT MEDICATIONS TAKING MULTIVITAMINS OTC TABLET 1 TABLET ORALLY ONCE A DAY TAKING VITAMIN D 2000 UNIT CAPSULE 1 CAPSULE ORALLY ONCE A DAY TAKING WELLBUTRIN XL 300 MG TABLET EXTENDED RELEASE 24 HOUR 1 TABLET IN THE MORNING ORALLY ONCE A DAY TAKING GABAPENTIN 300 MG CAPSULE 1 CAPSULE ORALLY THREE TIMES A DAY TAKING SOMA 350 MG TABLET 1 TABLET NEEDED ORALLY ONCE DAILY PRN MDD1 TAKING PERCOCET 5-325 MG TABLET 1 TABLET NEEDED ORALLY EVERY 6 HRS PRN MDD4 TAKING IBUPROFEN 800 MG TABLET 1 TABLET ORALLY THREE TIMES A DAY NOT-TAKING SOMA 350 MG TABLET 1 TAB ORALLY TID MDD3 NOT-TAKING MUCINEX 600 MG TABLET EXTENDED RELEASE 12 HOUR 1 TABLET NEEDED ORALLY EVERY 12 HRS NOT-TAKING SUDAFED 30 MG TABLET 1 TABLET NEEDED ORALLY EVERY 6 HRS MEDICATION LIST REVIEWED AND RECONCILED WITH THE PATIENT PAST MEDICAL HISTORY CHRONIC LOW BACK PAIN - DDD RIGHT ARM PAIN - BICEPS TENDON RUPTURE - [facility] - S/P SURGICAL REPAIR 2013 WITH RESIDUAL NUMBNESS AND PAIN - MACROCYTIC ANEMIA PULMONARY NODULES - CHEST CT 09/25/13 - MILD COPD, OLD GRANULOMATOUS DISEASE WITH CALCIFIED 11MM NODULE IN LLL, CALCIFIED LEFT HILAR NODES. 3MM NONCALCIFIED PULMONARY NODULE JUST ADJACENT TO AND CONTINUOS WITH OTHER PULMONARY NODULE. RECOMMEND F/U CT CHEST 09/25. - F/U CT DONE 08/03/15 - CHRONIC CHANGES, STABLE 3 MM NODULE C/W 09/25/13 - NO FURTHER IMAGING NEEDED VITAMIN D DEFICIENCY ALLERGIES PENICILLIN (FOR ALLERGIES USE ONLY): TOLD A CHILD TO NOT TAKE: ALLERGY REVIEW OF SYSTEMS REVIEWED BY: PROVIDER: YAS WHYTE . CONSTITUTIONAL: ANY CHANGE IN YOUR MEDICAL CONDITION? NO . CHILLS NO . FEVER NO . INFECTION: DO YOU HAVE NEW INFECTIONS? NO . DO YOU HAVE HISTORY OF MRSA? NO . MUSCULOSKELETAL: ANY NEW PATTERNS OF PAIN OR NUMBNESS? NO . GASTROENTEROLOGY: ANY NEW CHANGE IN BOWEL CONTROL? NO . GENITOURINARY: ANY NEW CHANGE IN BLADDER CONTROL? NO . IS THERE A CHANCE YOU COULD BE ? NO . HEMATOLOGY/LYMPH: DO YOU TAKE ANY BLOOD THINNERS? (FOR EXAMPLE- COUMADIN, PLAVIX, AGGRENOX, PLATEL, PRADAXA, OR XARELTO) NO . WHEN WAS YOUR LAST DOSE? DATE: TIME: . NEUROLOGY: HAVE YOU FALLEN IN THE PAST 6 MONTHS? NO . ANY NEW EXTREMITY NUMBNESS OR WEAKNESS? NO . CARDIOLOGY: DO YOU HAVE A PACEMAKER OR DEFIBRILLATOR? NO . RESPIRATORY: HAVE YOU BEEN SICK IN THE PAST WEEK? NO . FEVER NO . FLU LIKE SYMPTOMS? NO . COUGH NO . INTEGUMENTARY: DO YOU HAVE ANY RASHES OR OPEN SORES? NO . ALLERGIC/IMMUNO: ARE YOU ALLERGIC TO SHELLFISH OR IV DYE? NO . ANY NEW ALLERGIES? NO . PSYCHIATRIC: DO YOU HAVE THOUGHTS OF HURTING YOURSELF OR SOMEONE ELSE? NO . ARE YOU ABUSED, NEGLECTED, OR IN AN UNSAFE ENVIRONMENT? NO . ENDOCRINOLOGY: ARE YOU DIABETIC? NO . OTHER: DO YOU NEED ANY PRESCRIPTIONS? NO . IF YES, PLEASE LIST: ____ . ANY NEW PROBLEMS WITH YOUR MEDICATIONS? NO . WHEN DID YOU LAST EAT? ____ . WHEN DID YOU LAST DRINK? ____ . WHAT DID YOU LAST DRINK? ____ . NAME OF PERSON DRIVING YOU HOME? ____ . DO YOU HAVE ANY OTHER QUESTIONS OR CONCERNS NO . VITAL SIGNS WT 139.0 LBS, HT 69 IN, BMI 20.52 INDEX, BP 129/92 MM HG, HR 74 /MIN, RR 16 /MIN, TEMP 97.5 F, OXYGEN SAT % 97%, NA INITIALS TL 0901, REVIEWED BY: NL. EXAMINATION GENERAL EXAMINATION: LUNGS:LUNG SOUNDS ARE CLEAR. HEART:HEART RATE REGULAR. MUSCULOSKELETAL:*, MUSCLE STRENGTH TESTING 5/5LEFT 5/5 RIGHT, PALPATION: NEGATIVE FOR PAIN OVER L/S SPINE. NEGATIVE FOR PAIN OVER PARASPINALS.. ASSESSMENTS INTERVERTEBRAL DISC DISORDERS WITH RADICULOPATHY, LUMBOSACRAL REGION - M51.17 (PRIMARY) CHRONIC PRESCRIPTION OPIATE USE - Z79.891 TREATMENT INTERVERTEBRAL DISC DISORDERS WITH RADICULOPATHY, LUMBOSACRAL REGION REFILL PERCOCET TABLET, 5-325 MG, 1 TABLET NEEDED, ORALLY, EVERY 6 HRS PRN MDD4, 30 DAY(S), 120, REFILLS 0 REFILL SOMA TABLET, 350 MG, 1 TABLET NEEDED, ORALLY, ONCE DAILY PRN MDD1, 30 DAY(S), 30, REFILLS 1 REFILL IBUPROFEN TABLET, 800 MG, 1 TABLET, ORALLY, THREE TIMES A DAY, 30 DAY(S), 90 TABLET, REFILLS 2 PROCEDURE CODES FA211 ESTABILISHED PATIENT [facility] CHARGE DISPOSITION & COMMUNICATION FOLLOW UP 3 MONTHS ELECTRONICALLY SIGNED BY PATO DANIEL ON 08/08/2016 AT 10:34 AM EDT DISCLAIMER : THIS IS A VISIT SUMMARY EXTRACTED FROM THE [employer] CHART. IT IS NOT A COPY OF THE [employer] PROGRESS NOTE. YULIET
== END ==
LOC: M PAIN 09:00
PROVIDERS: ATTEND Nurse Practitioner Family
DX: M51.17 Intervertebral disc disorders with radiculopathy, lumbosacral region (principal); Z79.891 Long term (current) use of opiate analgesic; Z79.899 Other long term (current) drug therapy; Z88.0 Allergy status to penicillin; E55.9 Vitamin D deficiency, unspecified; G89.29 Other chronic pain

== ENCOUNTER 2016-11-07 12:34 | Emergency (ER) | payer OTHER, BC ==
[~2016-11-07] VITALS: Ht 172.7 cm; Wt 61.4 kg
[~2016-11-07 12:34] MED LIST changes: -SUBO12MI SL
[2016-11-07 12:35] VITALS: BP 125/88
[2016-11-07] MEDS ORDERED: SUBO12MI SL (14:37)
== END 2016-11-07 15:27 | disposition left against medical advice (07) ==
LOC: M ED 12:34
DX: S46.211A Strain of muscle, fascia and tendon of other parts of biceps, right arm, initial encounter (principal); M79.601 Pain in right arm; M79.602 Pain in left arm; X50.9XXA Other and unspecified overexertion or strenuous movements or postures, initial encounter; Y92.9 Unspecified place or not applicable; Y93.89 Activity, other specified; Y99.0 Civilian activity done for income or pay; F17.200 Nicotine dependence, unspecified, uncomplicated; Z79.899 Other long term (current) drug therapy; Z88.0 Allergy status to penicillin; Z53.21 Procedure and treatment not carried out due to patient leaving prior to being seen by health care provider

== ENCOUNTER → 2016-11-14 | Outpatient (CLI) | payer BC ==
[~2016-11-14] MED LIST changes: +SUBO12MI SL
--- NOTE | 2016-12-04 01:07 | ECWPNPC ---
PATIENT NAME: TAMARA MONROY : 1965 GENDER: MALE VISIT DATE: 11/14/2016 DISCHARGE DATE: 11/14/16920 VISIT LOCKED DATE TIME: PHYSICIAN: YAS ROBERTSON RESOURCE: YAS ROBERTSON REASON FOR APPOINTMENT 1. BACK HISTORY OF PRESENT ILLNESS HISTORY OF PRESENT ILLNESS: HERE FOR F/U OF CHRONIC LBP WITH RADIATION INTO LEFT BUTTOCKS.STATES PAIN IS BEGINING TO RETURN.RATING PAIN VAS 3/10.REPORTS INTERMITTENT ACHING. PAIN IS AGGREVATED BY LIFTING,BENDING AND WALKING.USING SOMA,PERCOCET AND IBUPROFEN PRN FOR SEVERE PAIN.REPORTS PERIODIC BILATERAL LEG PAIN L>R.HAS RESPONDED WELL TO LESI IN PAST,LAST DONE . PAIN THE PATIENT DESCRIBES THE PAIN... THE PATIENT DESCRIBES THE PAIN... THE PATIENT DESCRIBES THE PAIN... FALL RISK SCREENING: SCREENING :NO FALLS IN THE PAST YEAR CURRENT MEDICATIONS TAKING MULTIVITAMINS OTC TABLET 1 TABLET ORALLY ONCE A DAY TAKING VITAMIN D 2000 UNIT CAPSULE 1 CAPSULE ORALLY ONCE A DAY TAKING GABAPENTIN 300 MG CAPSULE 1 CAPSULE ORALLY THREE TIMES A DAY TAKING WELLBUTRIN XL 300 MG TABLET EXTENDED RELEASE 24 HOUR 1 TABLET IN THE MORNING ORALLY ONCE A DAY TAKING IBUPROFEN 800 MG TABLET 1 TABLET ORALLY THREE TIMES A DAY TAKING PERCOCET 5-325 MG TABLET 1 TABLET NEEDED ORALLY EVERY 6 HRS PRN MDD4 TAKING SOMA 350 MG TABLET 1 TABLET NEEDED ORALLY ONCE DAILY PRN MDD1 NOT-TAKING SOMA 350 MG TABLET 1 TAB ORALLY TID MDD3 NOT-TAKING MUCINEX 600 MG TABLET EXTENDED RELEASE 12 HOUR 1 TABLET NEEDED ORALLY EVERY 12 HRS NOT-TAKING SUDAFED 30 MG TABLET 1 TABLET NEEDED ORALLY EVERY 6 HRS MEDICATION LIST REVIEWED AND RECONCILED WITH THE PATIENT PAST MEDICAL HISTORY CHRONIC LOW BACK PAIN - DDD RIGHT ARM PAIN - BICEPS TENDON RUPTURE - [facility] - S/P SURGICAL REPAIR 2013 WITH RESIDUAL NUMBNESS AND PAIN - MACROCYTIC ANEMIA PULMONARY NODULES - CHEST CT 09/25/13 - MILD COPD, OLD GRANULOMATOUS DISEASE WITH CALCIFIED 11MM NODULE IN LLL, CALCIFIED LEFT HILAR NODES. 3MM NONCALCIFIED PULMONARY NODULE JUST ADJACENT TO AND CONTINUOS WITH OTHER PULMONARY NODULE. RECOMMEND F/U CT CHEST 09/25. - F/U CT DONE 08/03/15 - CHRONIC CHANGES, STABLE 3 MM NODULE C/W 09/25/13 - NO FURTHER IMAGING NEEDED VITAMIN D DEFICIENCY ALLERGIES PENICILLIN (FOR ALLERGIES USE ONLY): TOLD A CHILD TO NOT TAKE: ALLERGY SOCIAL HISTORY GENERAL: TOBACCO USE ARE YOU A:CURRENT SMOKER ARE YOU INTERESTED IN QUITTING?NOT READY TO QUIT COUNSELED THE PATIENT ON SMOKING EFFECTS, EDUCATION [id number]/04/2017 HOW MANY CIGARETTES A DAY DO YOU SMOKE?11-20 PATIENT COUNSELED ON THE DANGERS OF TOBACCO USE AND URGED TO QUIT:11/14/2016 MUSLIM [id number] EVANGELICAL LANGUAGE LANGUAGES SPOKEN:[place]VI[place] LEARNING BARRIERS / SPECIAL NEEDS BARRIERS TO LEARNING?NO HEARING IMPAIRED?NO VISION IMPAIRED?YES :CORRECTIVE LENSES COGNITIVELY IMPAIRED?NO READINESS TO LEARN?YES LEARNING PREFERENCES?NO LEARNING CAPABILITIES PRESENT?YES EMOTIONAL BARRIERS?NO SPECIAL DEVICES?NO DISTILLATION OPERATOR HELPER NEEDED?NO PAIN CLINIC PFS, CLERGY, PUBLIC HEALTH REFERRALS PFS REFERRAL NEEDED?NO CLERGY REFERRAL NEEDED?NO PUBLIC HEALTH REFERRAL NEEDED?NO WAS THE PROVIDER NOTIFIED OF ANY PERTINENT INFO?NO HAS THE PATIENT BEEN EDUCATED REGARDING HIS/HER PLAN OF CARE?YES HAS THE PATIENT BEEN EDUCATED REGARDING PAIN, THE RISK FOR PAIN, THE IMPORTANCE OF EFFECTIVE PAIN MANAGEMENT, AND THE PAIN ASSESSMENT PROCESS?YES PATIENT: ____. ADVANCE DIRECTIVES HEALTH CARE PROXY?NO WOULD YOU LIKE MORE INFORMATION?NO DO YOU HAVE A DNR?NO WOULD YOU LIKE MORE INFORMATION?NO LIVING WILL?NO WOULD YOU LIKE MORE INFORMATION?NO POWER OF WINCHMAN/CRANE OPERATOR?NO WOULD YOU LIKE MORE INFORMATION?NO REVIEW OF SYSTEMS REVIEWED BY: PROVIDER: YAS WHYTE . CONSTITUTIONAL: ANY CHANGE IN YOUR MEDICAL CONDITION? NO . CHILLS NO . FEVER NO . INFECTION: DO YOU HAVE NEW INFECTIONS? NO . DO YOU HAVE HISTORY OF MRSA? NO . MUSCULOSKELETAL: ANY NEW PATTERNS OF PAIN OR NUMBNESS? YES, PAIN IN RIGHT ARM FROM A WORK INJURY THAT OCCURRED 10/27/16 . GASTROENTEROLOGY: ANY NEW CHANGE IN BOWEL CONTROL? NO . GENITOURINARY: ANY NEW CHANGE IN BLADDER CONTROL? NO . IS THERE A CHANCE YOU COULD BE ? NO . HEMATOLOGY/LYMPH: DO YOU TAKE ANY BLOOD THINNERS? (FOR EXAMPLE- COUMADIN, PLAVIX, AGGRENOX, PLATEL, PRADAXA, OR XARELTO) NO . WHEN WAS YOUR LAST DOSE? DATE: TIME: . NEUROLOGY: HAVE YOU FALLEN IN THE PAST 6 MONTHS? NO . ANY NEW EXTREMITY NUMBNESS OR WEAKNESS? NO . CARDIOLOGY: DO YOU HAVE A PACEMAKER OR DEFIBRILLATOR? NO . RESPIRATORY: HAVE YOU BEEN SICK IN THE PAST WEEK? NO . FEVER NO . FLU LIKE SYMPTOMS? NO . COUGH NO . INTEGUMENTARY: DO YOU HAVE ANY RASHES OR OPEN SORES? NO . ALLERGIC/IMMUNO: ARE YOU ALLERGIC TO SHELLFISH OR IV DYE? NO . ANY NEW ALLERGIES? NO . PSYCHIATRIC: DO YOU HAVE THOUGHTS OF HURTING YOURSELF OR SOMEONE ELSE? NO . ARE YOU ABUSED, NEGLECTED, OR IN AN UNSAFE ENVIRONMENT? NO . ENDOCRINOLOGY: ARE YOU DIABETIC? NO . OTHER: DO YOU NEED ANY PRESCRIPTIONS? YES . IF YES, PLEASE LIST: PERCOCET AND SOMA . ANY NEW PROBLEMS WITH YOUR MEDICATIONS? NO . WHEN DID YOU LAST EAT? ____ . WHEN DID YOU LAST DRINK? ____ . WHAT DID YOU LAST DRINK? ____ . NAME OF PERSON DRIVING YOU HOME? ____ . DO YOU HAVE ANY OTHER QUESTIONS OR CONCERNS NO . VITAL SIGNS WT 137.4 LBS, HT 69 IN, BMI 20.29 INDEX, BP 123/84 MM HG, HR 57 /MIN, RR 16 /MIN, TEMP 98.7 F, OXYGEN SAT % 97%, NA INITIALS AW 0843, REVIEWED BY: TARA. EXAMINATION GENERAL EXAMINATION: LUNGS:LUNG SOUNDS ARE CLEAR. HEART:HEART RATE REGULAR. MUSCULOSKELETAL:*, MUSCLE STRENGTH TESTING 5/5LEFT 5/5 RIGHT, PALPATION: + FOR PAIN OVER L/S SPINE. + FOR PAIN OVER PARASPINALS.. ASSESSMENTS INTERVERTEBRAL DISC DISORDERS WITH RADICULOPATHY, LUMBOSACRAL REGION - M51.17 (PRIMARY) CHRONIC PRESCRIPTION OPIATE USE - Z79.891 LUMBAR RADICULAR PAIN - M54.16 TREATMENT INTERVERTEBRAL DISC DISORDERS WITH RADICULOPATHY, LUMBOSACRAL REGION REFILL PERCOCET TABLET, 5-325 MG, 1 TABLET NEEDED, ORALLY, EVERY 6 HRS PRN MDD4, 30 DAY(S), 120, REFILLS 0 REFILL SOMA TABLET, 350 MG, 1 TABLET NEEDED, ORALLY, ONCE DAILY PRN MDD1, 30 DAY(S), 30, REFILLS 1 REFILL IBUPROFEN TABLET, 800 MG, 1 TABLET, ORALLY, THREE TIMES A DAY, 30 DAY(S), 90 TABLET, REFILLS 2 NOTES: ISTOP REGISTRY [id number] AND DEMNOSTRATES COMPLLIANCE. BRINGS IN MEDICATIONS WHICH IS APPROPRIATE FOR WHAT WAS DISPENSED. RECENT URINE TOXICOLOGY REVIEWED. NO UNAUTHORIZED MEDICATIONS. NO ILLICIT SUBSTANCES AND PRESCRIBED MEDICATIONS WERE PRESENT. , RISKS AND BENEFITS OF NARCOTIC/OPIOD MEDICATIONS WERE REVIEWED WITH PATIENT - THIS INCLUDES BUT IS NOT LIMITED TO RISK OF DEPENDANCE/DEVELOPMENT OF ADDICTION, MOOD DISTURBANCE AND DEPRESSION, OSTEOPOROSIS, HORMONAL AND LABIDAL CHANGES, RESPIRATORY DEPRESSION AND . PATIENT IS ADVISED NOT TO DRIVE WHILE ON THESE MEDICATIONS.INTRALAMINAR LESI. PREVENTIVE MEDICINE PAIN CLINIC TEACHING: PROCEDURE TEACHING PRE-PROCEDURE TEACHING DONE AND PATIENT VERBALIZES UNDERSTANDING.. PROCEDURE CODES FA211 ESTABILISHED PATIENT [facility] CHARGE DISPOSITION & COMMUNICATION FOLLOW UP 2WK POST (REASON: INTRALAMINAR LESI) ELECTRONICALLY SIGNED BY PATO DANIEL ON 12/03/2016 AT 07:40 AM EDT DISCLAIMER : THIS IS A VISIT SUMMARY EXTRACTED FROM THE [employer] CHART. IT IS NOT A COPY OF THE [employer] PROGRESS NOTE. YULIET
== END ==
LOC: M PAIN 08:30
PROVIDERS: ATTEND Nurse Practitioner Family
DX: G89.29 Other chronic pain (principal); M51.17 Intervertebral disc disorders with radiculopathy, lumbosacral region; F17.210 Nicotine dependence, cigarettes, uncomplicated; F32.9 Major depressive disorder, single episode, unspecified; E55.9 Vitamin D deficiency, unspecified; Z88.0 Allergy status to penicillin; Z79.1 Long term (current) use of non-steroidal anti-inflammatories (NSAID); Z79.899 Other long term (current) drug therapy

== ENCOUNTER → 2016-11-28 | Outpatient (CLI) | payer BC, OTHER ==
[~2016-11-28] MED LIST changes: +ISOVUE-M 300 61% 15ML VIAL (Q9967) As Ordered ONE; +LIDOCAINE 1% SDV INJ 30 ML VIAL As Ordered ONE; +diazePAM 5 MG TAB As Ordered ONE; +methylPREDNISolone SUSP 40 MG/ML (DEPO-medrol) VIAL (J1030) As Ordered ONE; +oxyCODONE 5MG TAB As Ordered ONE
--- NOTE | 2016-11-28 15:15 | REP ---
FLUOROSCOPIC GUIDANCE: The films were reviewed with Dr. Cornejo. The patient has a history of low back pain. The portable C-arm was provided in the OR for Dr. Bates for fluoroscopic guidance. Three intraoperative fluoroscopic spot films are obtained using last image hold technology for needle placement verification for lumbar epidural injection. The films are on the PACS system and are available for review. 24 seconds of fluoroscopy time was utilized for this procedure. Reviewed by BEST Shepard 11/28/2016 04:29 PEdited and Signed by Scott Cornejo MD 11/28/2016 05:04 P
--- NOTE | 2016-12-02 23:51 | ECWPNPC ---
PATIENT NAME: TAMARA MONROY : 1965 GENDER: MALE VISIT DATE: 11/28/2016 DISCHARGE DATE: 11/28/16 1201 VISIT LOCKED DATE TIME: PHYSICIAN: DONTA ISAAC RESOURCE: DONTA ISAAC REASON FOR APPOINTMENT 1. INTRALAMINAR LESI HISTORY OF PRESENT ILLNESS HISTORY OF PRESENT ILLNESS: PAIN THE PATIENT DESCRIBES THE PAIN... FALL RISK SCREENING: SCREENING :NO FALLS IN THE PAST YEAR CURRENT MEDICATIONS TAKING PERCOCET 5-325 MG TABLET 1 TABLET NEEDED ORALLY EVERY 6 HRS PRN MDD4, NOTES: 11/27/16@1900 TAKING SOMA 350 MG TABLET 1 TABLET NEEDED ORALLY ONCE DAILY PRN MDD1, NOTES: 11/27/16@1900 TAKING GABAPENTIN 300 MG CAPSULE 1 CAPSULE ORALLY THREE TIMES A DAY, NOTES: 11/27/16@1900 TAKING IBUPROFEN 800 MG TABLET 1 TABLET ORALLY THREE TIMES A DAY, NOTES: 11/27/16@1900 TAKING WELLBUTRIN XL 300 MG TABLET EXTENDED RELEASE 24 HOUR 1 TABLET IN THE MORNING ORALLY ONCE A DAY, NOTES: 11/27/16@0600 TAKING VITAMIN D 2000 UNIT CAPSULE 1 CAPSULE ORALLY ONCE A DAY, NOTES: 11/25/16@0600 TAKING MULTIVITAMINS OTC TABLET 1 TABLET ORALLY ONCE A DAY, NOTES: 1 WEEK AGO MEDICATION LIST REVIEWED AND RECONCILED WITH THE PATIENT PAST MEDICAL HISTORY CHRONIC LOW BACK PAIN - DDD RIGHT ARM PAIN - BICEPS TENDON RUPTURE - [facility] - S/P SURGICAL REPAIR 2013 WITH RESIDUAL NUMBNESS AND PAIN - MACROCYTIC ANEMIA PULMONARY NODULES - CHEST CT 09/25/13 - MILD COPD, OLD GRANULOMATOUS DISEASE WITH CALCIFIED 11MM NODULE IN LLL, CALCIFIED LEFT HILAR NODES. 3MM NONCALCIFIED PULMONARY NODULE JUST ADJACENT TO AND CONTINUOS WITH OTHER PULMONARY NODULE. RECOMMEND F/U CT CHEST 09/25. - F/U CT DONE 08/03/15 - CHRONIC CHANGES, STABLE 3 MM NODULE C/W 09/25/13 - NO FURTHER IMAGING NEEDED VITAMIN D DEFICIENCY BILATERAL BICEPT TEAR ALLERGIES PENICILLIN (FOR ALLERGIES USE ONLY): TOLD A CHILD TO NOT TAKE: ALLERGY SURGICAL HISTORY BICEP-RT SIDE 2015 SOCIAL HISTORY GENERAL: TOBACCO USE ARE YOU A:CURRENT SMOKER ARE YOU INTERESTED IN QUITTING?NOT READY TO QUIT COUNSELED THE PATIENT ON SMOKING EFFECTS, EDUCATION [id number]/18/2017 HOW MANY CIGARETTES A DAY DO YOU SMOKE?11-20 HOW SOON AFTER YOU WAKE UP DO YOU SMOKE YOUR FIRST CIGARETTE?WITHIN 5 MIN HOW OFTEN DO YOU SMOKE CIGARETTES?EVERY DAY PATIENT COUNSELED ON THE DANGERS OF TOBACCO USE AND URGED TO QUIT:11/28/2016 ALCOHOL SCREENING DID YOU HAVE A DRINK CONTAINING ALCOHOL IN THE PAST YEAR?NO POINTS0 INTERPRETATIONNEGATIVE RECREATIONAL DRUG USE DRUG USE?NO MARITAL STATUS: . MORAVIAN [id number] ANABAPTIST LANGUAGE LANGUAGES SPOKEN:LEBANESE LEARNING BARRIERS / SPECIAL NEEDS CHANGE FROM LAST VISIT?NO BARRIERS TO LEARNING?NO HEARING IMPAIRED?NO VISION IMPAIRED?YES :CORRECTIVE LENSES COGNITIVELY IMPAIRED?NO READINESS TO LEARN?YES LEARNING PREFERENCES?NO LEARNING CAPABILITIES PRESENT?YES EMOTIONAL BARRIERS?NO SPECIAL DEVICES?NO CONTRACT POST OFFICE CLERK NEEDED?NO PAIN CLINIC PFS, CLERGY, PUBLIC HEALTH REFERRALS PFS REFERRAL NEEDED?NO CLERGY REFERRAL NEEDED?NO PUBLIC HEALTH REFERRAL NEEDED?NO WAS THE PROVIDER NOTIFIED OF ANY PERTINENT INFO?NO HAS THE PATIENT BEEN EDUCATED REGARDING HIS/HER PLAN OF CARE?YES HAS THE PATIENT BEEN EDUCATED REGARDING PAIN, THE RISK FOR PAIN, THE IMPORTANCE OF EFFECTIVE PAIN MANAGEMENT, AND THE PAIN ASSESSMENT PROCESS?YES PATIENT: ____. ADVANCE DIRECTIVES HEALTH CARE PROXY?NO WOULD YOU LIKE MORE INFORMATION?NO POWER OF ESTHETICIAN?NO DO YOU HAVE A DNR?NO WOULD YOU LIKE MORE INFORMATION?NO LIVING WILL?NO WOULD YOU LIKE MORE INFORMATION?NO WOULD YOU LIKE MORE INFORMATION?NO REVIEW OF SYSTEMS REVIEWED BY: PROVIDER: . CONSTITUTIONAL: ANY CHANGE IN YOUR MEDICAL CONDITION? NO . CHILLS NO . FEVER NO . INFECTION: DO YOU HAVE NEW INFECTIONS? NO . DO YOU HAVE HISTORY OF MRSA? NO . MUSCULOSKELETAL: ANY NEW PATTERNS OF PAIN OR NUMBNESS? YES, ARMS . GASTROENTEROLOGY: ANY NEW CHANGE IN BOWEL CONTROL? NO . GENITOURINARY: ANY NEW CHANGE IN BLADDER CONTROL? NO . IS THERE A CHANCE YOU COULD BE ? NO . HEMATOLOGY/LYMPH: DO YOU TAKE ANY BLOOD THINNERS? (FOR EXAMPLE- COUMADIN, PLAVIX, AGGRENOX, PLATEL, PRADAXA, OR XARELTO) NO . WHEN WAS YOUR LAST DOSE? DATE: TIME: . NEUROLOGY: HAVE YOU FALLEN IN THE PAST 6 MONTHS? NO . ANY NEW EXTREMITY NUMBNESS OR WEAKNESS? NO . CARDIOLOGY: DO YOU HAVE A PACEMAKER OR DEFIBRILLATOR? NO . RESPIRATORY: HAVE YOU BEEN SICK IN THE PAST WEEK? NO . FEVER NO . FLU LIKE SYMPTOMS? NO . COUGH NO . INTEGUMENTARY: DO YOU HAVE ANY RASHES OR OPEN SORES? NO . ALLERGIC/IMMUNO: ARE YOU ALLERGIC TO SHELLFISH OR IV DYE? NO . ANY NEW ALLERGIES? NO . PSYCHIATRIC: DO YOU HAVE THOUGHTS OF HURTING YOURSELF OR SOMEONE ELSE? NO . ARE YOU ABUSED, NEGLECTED, OR IN AN UNSAFE ENVIRONMENT? NO . ENDOCRINOLOGY: ARE YOU DIABETIC? NO . OTHER: DO YOU NEED ANY PRESCRIPTIONS? NO . IF YES, PLEASE LIST: ____ . ANY NEW PROBLEMS WITH YOUR MEDICATIONS? NO . WHEN DID YOU LAST EAT? LAST NIGHT . WHEN DID YOU LAST DRINK? LAST NIGHT . WHAT DID YOU LAST DRINK? COFFEE . NAME OF PERSON DRIVING YOU HOME? SHARON . DO YOU HAVE ANY OTHER QUESTIONS OR CONCERNS NO . VITAL SIGNS WT 141 LBS, HT 69 IN, BMI 20.82 INDEX, BP 142/86 MM HG, HR 57 /MIN, RR 18 /MIN, TEMP 98.2 F, OXYGEN SAT % 94%, NA INITIALS SC 10:18, REVIEWED BY: NL. ASSESSMENTS INTERVERTEBRAL DISC DISORDER WITH RADICULOPATHY OF LUMBAR REGION - M51.16 (PRIMARY) PROCEDURES PRE PROCEDURE DIAGNOSIS LUMBAR DISC DISORDER WITH RADICULOPATHY POST PROCEDURE DIAGNOSIS LUMBAR DISC DISORDER WITH RADICULOPATHY PROCEDURE LUMBAR EPIDURAL STEROID INJECTION UNDER FLUOROSCOPIC GUIDANCE SURGEON DR. DONTA ISAAC WINDOWS SYSTEMS ENGINEER NONE ANESTHESIA LOCAL PRE PROCEDURE NOTE THE PATIENT HAS A HISTORY OF CHRONIC LOW BACK PAIN. I EVALUATE THE PATIENT AND REVIEWED THE CHART. I WENT OVER THE RISKS, ALTERNATIVES, AND BENEFITS ASSOCIATED WITH THIS PROCEDURE. THE PATIENT WOULD LIKE TO PROCEED AND GIVE CONSENT TO PERFORMED THE PROCEDURE. THE PATIENT DENIES UNEXPLAINABLE WEIGHT LOSS, FEVER, CHILLS, OR NEW CHANGES IN URINARY OR BOWEL CONTROL. DESCRIPTION OF PROCEDURE THE PATIENT WAS BROUGHT TO THE PROCEDURE ROOM AND PLACED IN THE PRONE POSITION. THE LUMBOSACRAL AREA WAS CLEANED WITH BETADINE SOLUTION AND DRAPED ASEPTICALLY. THE PROCEDURE WAS DONE UNDER STERILE CONDITIONS. I CHECKED LATERALITY AND THE LEVEL WHERE THE PROCEDURE WAS GOING TO BE PERFORMED WITH THE PATIENT AND THE SUPPORTING STAFF AT THE MOMENT OF THE TIME OUT IN THE PROCEDURE ROOM. UNDER FLUOROSCOPIC GUIDANCE, THE TARGET POINT WAS SELECTED AT THE INTERLAMINAR LEVEL OF L4-L5. LIDOCAINE WAS USED TO NUMB THE SKIN AND THE SUBCUTANEOUS TISSUE BELOW IT. EPIDURAL TUOHY NEEDLE, 17-GAUGE, WAS ADVANCED UNDER FLUOROSCOPIC GUIDANCE AND FOLLOWING PATIENT FEEDBACK UNTIL THE EPIDURAL SPACE WAS REACHED, 7 CM DEEP INTO THE SKIN BY THE LOSS OF RESISTANCE TECHNIQUE. ISOVUE M DYE 30%, 0.25 ML, WAS INJECTED SHOWING ADEQUATE SPREAD OF THE DYE. THEN, A SOLUTION OF 3 ML OF NORMAL SALINE WITH DEPO-MEDROL 60 MG WAS INJECTED SLOWLY FOLLOWING PATIENT FEEDBACK. THERE WAS NO EVIDENCE OF BLOOD, PARESTHESIA OR CEREBROSPINAL FLUID DURING THE PROCEDURE. THE PATIENT WAS SENT TO THE RECOVERY ROOM. THE PATIENT WAS MOVING THE EXTREMITIES AND DOING WELL. THERE WAS NO COMPLICATION DURING THE PROCEDURE. FLUOROSCOPY TIME WAS 26 SECONDS. POST PROCEDURE NOTE THE PATIENT WILL BE SEEN IN A FOLLOW UP IN THE NEXT FEW WEEKS. INSTRUCTIONS WERE GIVEN, QUESTIONS WERE ANSWERED, AND THE PATIENT EXPRESSED UNDERSTANDING AND AGREES WITH THE PLAN. I, MARY JANE JURADO, DOCUMENTED THE ABOVE INFORMATION ACTING A SCRIBE FOR DR. ISAAC. I HAVE REVIEWED THE ABOVE DOCUMENT, WRITTEN BY MARY JANE OGIBKathy AND I VERIFY THAT IT IS ACCURATE DIAGNOSTIC IMAGING [facility] FLUORO GUIDE SPINE INJECTION (PAIN)[id number] PROCEDURE CODES 51507 LUMBAR/SACRAL W/ IMAGING 6045F RADXPS IN END [id number] PXD DISPOSITION & COMMUNICATION FOLLOW UP 2 WEEKS ELECTRONICALLY SIGNED BY DONTA ISAAC MD ON 12/02/2016 AT 01:07 PM EDT DISCLAIMER : THIS IS A VISIT SUMMARY EXTRACTED FROM THE [employer] CHART. IT IS NOT A COPY OF THE [employer] PROGRESS NOTE. MTDD
== END ==
LOC: M PAIN 10:15
PROVIDERS: ATTEND Anesthesiology
DX: G89.29 Other chronic pain (principal); M51.16 Intervertebral disc disorders with radiculopathy, lumbar region; E78.5 Hyperlipidemia, unspecified; F17.210 Nicotine dependence, cigarettes, uncomplicated; F32.9 Major depressive disorder, single episode, unspecified; E55.9 Vitamin D deficiency, unspecified; Z88.0 Allergy status to penicillin; Z79.891 Long term (current) use of opiate analgesic; Z79.1 Long term (current) use of non-steroidal anti-inflammatories (NSAID); Z79.899 Other long term (current) drug therapy
CPT/HCPCS: 62323; J1030; Q9967

== ENCOUNTER → 2017-02-06 | Outpatient (CLI) | payer BC ==
[~2017-02-06] MED LIST changes: -GABA-282 PO; -IBUP80TA PO; +ISOVUE-M 300 61% 15ML VIAL (Q9967) As Ordered; -ISOVUE-M 300 61% 15ML VIAL (Q9967) As Ordered ONE; +LIDOCAINE 1% SDV INJ 30 ML VIAL As Ordered; -LIDOCAINE 1% SDV INJ 30 ML VIAL As Ordered ONE; -PERCOCET PO; -SOMA350T PO; -SUBO12MI SL; +diazePAM 5 MG TAB As Ordered; -diazePAM 5 MG TAB As Ordered ONE; +methylPREDNISolone SUSP 40 MG/ML (DEPO-medrol) VIAL (J1030) As Ordered; -methylPREDNISolone SUSP 40 MG/ML (DEPO-medrol) VIAL (J1030) As Ordered ONE; +oxyCODONE 5MG TAB As Ordered; -oxyCODONE 5MG TAB As Ordered ONE
== END ==
LOC: M PAIN 10:45
DX: G89.29 Other chronic pain (principal); M51.16 Intervertebral disc disorders with radiculopathy, lumbar region; J44.9 Chronic obstructive pulmonary disease, unspecified; R91.8 Other nonspecific abnormal finding of lung field; E55.9 Vitamin D deficiency, unspecified; F17.210 Nicotine dependence, cigarettes, uncomplicated; Z79.899 Other long term (current) drug therapy
CPT/HCPCS: J1030

== ENCOUNTER → 2017-02-13 | Outpatient (REF) | payer BC ==
[2017-02-13 20:23] LABS: BASO % 0.5 % (0.0-1.0); EOS # 0.2 10^3/uL (0.0-0.50); EOS % 2.9 % (0.0-3.0); HEMATOCRIT 40.9 % (42.0-52.0); HEMOGLOBIN 13.5 g/dl (14.0-18.0); IMMATURE GRANULOCYTE % 0.5 % (0-0); LYMPH % 32.1 % (24.0-44.0); MEAN CORPUSCULAR HEMOGLOBIN 31.7 pg (27.0-33.0); MONO # 0.4 10^3/uL (0.0-0.8); MONO % 6.7 % (0.0-5.0); NEUTROPHILS # 3.6 10^3/uL (1.8-7.7); NEUTROPHILS % 57.3 % (36.0-66.0); PLATELET COUNT, AUTOMATED 234 10^3/uL (150-450); RED BLOOD COUNT 4.26 10^6/uL (4.30-6.10); RED CELL DISTRIBUTION WIDTH 14.5 % (11.5-14.5); WHITE BLOOD COUNT 6.2 10^3/uL (4.0-10.0)
[2017-02-13 20:50] LABS: TOTAL 25(OH) VITAMIN D 76.4 NG/ML (30.0-100.0)
[2017-02-13 20:53] LABS: ALBUMIN/GLOBULIN RATIO 1.25 (1.00-1.93); ALKALINE PHOSPHATASE 77 U/L (45-117); ALT/SGPT 14 U/L (12-78); ANION GAP 7 MEQ/L (8-16); AST/SGOT 12 U/L (7-37); BILIRUBIN,TOTAL 0.3 MG/DL (0.2-1.0); BLOOD UREA NITROGEN 18 MG/DL (7-18); CARBON DIOXIDE LEVEL 28 MEQ/L (21-32); CHLORIDE LEVEL 105 MEQ/L (98-107); CREATININE FOR GFR 1.08 MG/DL (0.70-1.30); GLOMERULAR FILTRATION RATE > 60.0 (>56); GLUCOSE, FASTING 83 MG/DL (70-105); POTASSIUM SERUM 4.3 MEQ/L (3.5-5.1); SODIUM LEVEL 140 MEQ/L (136-145); TOTAL PROTEIN 7.2 GM/DL (6.4-8.2)
== END ==
LOC: M SFHCADAM 15:35
DX: F32.9 Major depressive disorder, single episode, unspecified (principal); M51.16 Intervertebral disc disorders with radiculopathy, lumbar region; F17.210 Nicotine dependence, cigarettes, uncomplicated; E55.9 Vitamin D deficiency, unspecified
CPT/HCPCS: 80053

== ENCOUNTER → 2017-03-22 | Outpatient (CLI) | payer BC | LOC: M PAIN 08:45 | DX: M47.892 Other spondylosis, cervical region (principal); G89.29 Other chronic pain; J98.4 Other disorders of lung; E55.9 Vitamin D deficiency, unspecified; F17.210 Nicotine dependence, cigarettes, uncomplicated; Z79.1 Long term (current) use of non-steroidal anti-inflammatories (NSAID); Z79.899 Other long term (current) drug therapy; Z88.0 Allergy status to penicillin; Z98.890 Other specified postprocedural states | CPT/HCPCS: G0463 ==

== ENCOUNTER → 2017-04-18 | Outpatient (CLI) | payer OTHER, BC | LOC: M PAIN 10:15 | DX: M25.512 Pain in left shoulder (principal); M25.511 Pain in right shoulder; E55.9 Vitamin D deficiency, unspecified; F17.210 Nicotine dependence, cigarettes, uncomplicated; Z79.899 Other long term (current) drug therapy; Z79.891 Long term (current) use of opiate analgesic; Z88.0 Allergy status to penicillin | CPT/HCPCS: G0463 ==

== ENCOUNTER → 2017-05-03 | Outpatient (CLI) | payer BC, OTHER | LOC: M PAIN 08:45 | DX: M51.17 Intervertebral disc disorders with radiculopathy, lumbosacral region (principal); F17.210 Nicotine dependence, cigarettes, uncomplicated; E55.9 Vitamin D deficiency, unspecified; Z79.899 Other long term (current) drug therapy; Z79.891 Long term (current) use of opiate analgesic; Z88.0 Allergy status to penicillin | CPT/HCPCS: G0463 ==

== ENCOUNTER → 2017-05-15 | Outpatient (CLI) | payer BC, OTHER | LOC: M PAIN 08:45 | DX: G89.29 Other chronic pain (principal); M51.17 Intervertebral disc disorders with radiculopathy, lumbosacral region; E55.9 Vitamin D deficiency, unspecified; F17.210 Nicotine dependence, cigarettes, uncomplicated; Z79.899 Other long term (current) drug therapy; Z88.0 Allergy status to penicillin; Z98.890 Other specified postprocedural states | CPT/HCPCS: J1030 ==

== ENCOUNTER → 2017-06-07 | Outpatient (CLI) | payer BC | LOC: M PAIN 09:00 | DX: G89.29 Other chronic pain (principal); M51.17 Intervertebral disc disorders with radiculopathy, lumbosacral region; D64.9 Anemia, unspecified; R91.8 Other nonspecific abnormal finding of lung field; J84.10 Pulmonary fibrosis, unspecified; E55.9 Vitamin D deficiency, unspecified; F17.210 Nicotine dependence, cigarettes, uncomplicated; Z79.891 Long term (current) use of opiate analgesic; Z79.1 Long term (current) use of non-steroidal anti-inflammatories (NSAID); Z79.899 Other long term (current) drug therapy; Z88.0 Allergy status to penicillin | CPT/HCPCS: G0463 ==

== ENCOUNTER → 2017-07-09 | Outpatient (CLI) | payer BC | LOC: M PAIN 09:15 | DX: G89.29 Other chronic pain (principal); M47.817 Spondylosis without myelopathy or radiculopathy, lumbosacral region; E55.9 Vitamin D deficiency, unspecified; F17.210 Nicotine dependence, cigarettes, uncomplicated; R20.0 Anesthesia of skin; M79.621 Pain in right upper arm; J44.9 Chronic obstructive pulmonary disease, unspecified; Z79.891 Long term (current) use of opiate analgesic; Z79.899 Other long term (current) drug therapy; Z88.0 Allergy status to penicillin | CPT/HCPCS: G0463 ==

== ENCOUNTER → 2017-07-16 | Outpatient (CLI) | payer OTHER, BC | LOC: M PAIN 13:00 | DX: G89.29 Other chronic pain (principal); M25.511 Pain in right shoulder; M25.512 Pain in left shoulder; M79.1 Myalgia; M51.36 Other intervertebral disc degeneration, lumbar region; D53.9 Nutritional anemia, unspecified; R91.8 Other nonspecific abnormal finding of lung field; E55.9 Vitamin D deficiency, unspecified; F17.210 Nicotine dependence, cigarettes, uncomplicated; Z79.891 Long term (current) use of opiate analgesic; Z79.899 Other long term (current) drug therapy; Z88.0 Allergy status to penicillin | CPT/HCPCS: G0463 ==

== ENCOUNTER → 2017-08-06 | Outpatient (REF) | payer BC ==
[2017-08-06 20:01] LABS: HEMATOCRIT 39.6 % (42.0-52.0); HEMOGLOBIN 13.4 g/dl (13.5-17.5); MEAN CORPUSCULAR HEMOGLOBIN 32.2 pg (27.0-33.0); MEAN CORPUSCULAR HGB CONC 33.8 g/dl (32.0-36.5); MEAN CORPUSCULAR VOLUME 95.2 fl (80.0-96.0); PLATELET COUNT, AUTOMATED 248 10^3/uL (150-450); RED BLOOD COUNT 4.16 10^6/uL (4.30-6.10); RED CELL DISTRIBUTION WIDTH 13.8 % (11.5-14.5); WHITE BLOOD COUNT 6.1 10^3/uL (4.0-10.0)
[2017-08-06 20:36] LABS: TOTAL 25(OH) VITAMIN D 22.5 NG/ML (30.0-100.0)
[2017-08-06 20:39] LABS: ALBUMIN 3.7 GM/DL (3.2-5.2); ALBUMIN/GLOBULIN RATIO 1.03 (1.00-1.93); ALKALINE PHOSPHATASE 100 U/L (45-117); ALT/SGPT 16 U/L (12-78); ANION GAP 10 MEQ/L (8-16); AST/SGOT 11 U/L (7-37); BILIRUBIN,TOTAL 0.3 MG/DL (0.2-1.0); BLOOD UREA NITROGEN 9 MG/DL (7-18); CALCIUM LEVEL 8.4 MG/DL (8.5-10.1); CARBON DIOXIDE LEVEL 26 MEQ/L (21-32); CHLORIDE LEVEL 104 MEQ/L (98-107); GLOMERULAR FILTRATION RATE > 60.0 (>56); GLUCOSE, FASTING 85 MG/DL (70-100); POTASSIUM SERUM 4.5 MEQ/L (3.5-5.1); SODIUM LEVEL 140 MEQ/L (136-145); TOTAL PROTEIN 7.3 GM/DL (6.4-8.2)
== END ==
LOC: M SFHCADAM 13:45
DX: M51.17 Intervertebral disc disorders with radiculopathy, lumbosacral region (principal); F32.9 Major depressive disorder, single episode, unspecified; F17.210 Nicotine dependence, cigarettes, uncomplicated; E55.9 Vitamin D deficiency, unspecified
CPT/HCPCS: 80053

== ENCOUNTER → 2017-08-08 | Outpatient (CLI) | payer BC | LOC: M PAIN 11:30 | DX: M47.817 Spondylosis without myelopathy or radiculopathy, lumbosacral region (principal); G89.29 Other chronic pain; E55.9 Vitamin D deficiency, unspecified; F32.9 Major depressive disorder, single episode, unspecified; F17.210 Nicotine dependence, cigarettes, uncomplicated; Z79.899 Other long term (current) drug therapy; Z88.0 Allergy status to penicillin | CPT/HCPCS: G0463 ==

== ENCOUNTER → 2017-08-27 | Outpatient (CLI) | payer OTHER ==
[~2017-08-27] MED LIST changes: +BUPIVACAINE HCL 0.25% 10 ML VIAL As Ordered; +BUPIVACAINE HCL 0.25% 30 ML VIAL As Ordered; -ISOVUE-M 300 61% 15ML VIAL (Q9967) As Ordered; -LIDOCAINE 1% SDV INJ 30 ML VIAL As Ordered; +TRIAMCINOLONE ACETONIDE SUSP 40 MG/ML VIAL (J3301) As Ordered; -methylPREDNISolone SUSP 40 MG/ML (DEPO-medrol) VIAL (J1030) As Ordered
== END ==
LOC: M PAIN 13:45
DX: G89.29 Other chronic pain (principal); M79.1 Myalgia; F32.9 Major depressive disorder, single episode, unspecified; F17.210 Nicotine dependence, cigarettes, uncomplicated; E55.9 Vitamin D deficiency, unspecified; Z79.891 Long term (current) use of opiate analgesic; Z79.899 Other long term (current) drug therapy; Z88.0 Allergy status to penicillin
CPT/HCPCS: J3301

== ENCOUNTER → 2017-09-10 | Outpatient (CLI) | payer BC, OTHER ==
[~2017-09-10] MED LIST changes: -BUPIVACAINE HCL 0.25% 10 ML VIAL As Ordered; +ISOVUE-M 300 61% 15ML VIAL (Q9967) As Ordered; +LIDOCAINE 1% SDV INJ 30 ML VIAL As Ordered; -TRIAMCINOLONE ACETONIDE SUSP 40 MG/ML VIAL (J3301) As Ordered; -diazePAM 5 MG TAB As Ordered; -oxyCODONE 5MG TAB As Ordered
== END ==
LOC: M PAIN 10:00
DX: G89.29 Other chronic pain (principal); M47.817 Spondylosis without myelopathy or radiculopathy, lumbosacral region; E55.9 Vitamin D deficiency, unspecified; J98.4 Other disorders of lung; F32.9 Major depressive disorder, single episode, unspecified; Z79.899 Other long term (current) drug therapy; Z88.0 Allergy status to penicillin; Z86.2 Personal history of diseases of the blood and blood-forming organs and certain disorders involving the immune mechanism
CPT/HCPCS: Q9967

== ENCOUNTER → 2017-09-23 | Outpatient (CLI) | payer BC, OTHER | LOC: M PAIN 11:00 | DX: M47.817 Spondylosis without myelopathy or radiculopathy, lumbosacral region (principal); M79.621 Pain in right upper arm; R20.0 Anesthesia of skin; D53.9 Nutritional anemia, unspecified; J44.9 Chronic obstructive pulmonary disease, unspecified; R91.8 Other nonspecific abnormal finding of lung field; E55.9 Vitamin D deficiency, unspecified; F17.210 Nicotine dependence, cigarettes, uncomplicated; F32.9 Major depressive disorder, single episode, unspecified; Z79.891 Long term (current) use of opiate analgesic; Z79.899 Other long term (current) drug therapy; Z88.0 Allergy status to penicillin | CPT/HCPCS: G0463 ==

== ENCOUNTER → 2017-09-24 | Outpatient (CLI) | payer OTHER | LOC: M PAIN 10:45 | DX: M25.512 Pain in left shoulder (principal); M25.511 Pain in right shoulder; G89.29 Other chronic pain; M79.1 Myalgia; E55.9 Vitamin D deficiency, unspecified; F32.9 Major depressive disorder, single episode, unspecified; F17.210 Nicotine dependence, cigarettes, uncomplicated; Z79.899 Other long term (current) drug therapy; Z88.0 Allergy status to penicillin | CPT/HCPCS: G0463 ==

== ENCOUNTER → 2017-10-08 | Outpatient (CLI) | payer BC ==
[~2017-10-08] MED LIST changes: -BUPIVACAINE HCL 0.25% 30 ML VIAL As Ordered; +diazePAM 5 MG TAB As Ordered; +methylPREDNISolone SUSP 40 MG/ML (DEPO-medrol) VIAL (J1030) As Ordered; +oxyCODONE 5MG TAB As Ordered
== END ==
LOC: M PAIN 08:30
DX: M51.16 Intervertebral disc disorders with radiculopathy, lumbar region (principal); D53.9 Nutritional anemia, unspecified; F17.210 Nicotine dependence, cigarettes, uncomplicated; E55.9 Vitamin D deficiency, unspecified; F32.9 Major depressive disorder, single episode, unspecified; M79.621 Pain in right upper arm; Z79.891 Long term (current) use of opiate analgesic; Z79.899 Other long term (current) drug therapy; Z88.0 Allergy status to penicillin
CPT/HCPCS: J1030

== ENCOUNTER → 2017-10-29 | Outpatient (CLI) | payer OTHER | LOC: M PAIN 09:30 | DX: Z53.29 Procedure and treatment not carried out because of patient's decision for other reasons (principal) ==

== ENCOUNTER → 2017-11-05 | Outpatient (CLI) | payer OTHER | LOC: M PAIN 08:45 | DX: G62.9 Polyneuropathy, unspecified (principal); G89.29 Other chronic pain; M79.602 Pain in left arm; M79.601 Pain in right arm; E55.9 Vitamin D deficiency, unspecified; J98.4 Other disorders of lung; F32.9 Major depressive disorder, single episode, unspecified; F17.210 Nicotine dependence, cigarettes, uncomplicated; Z79.891 Long term (current) use of opiate analgesic; Z79.899 Other long term (current) drug therapy; Z88.0 Allergy status to penicillin | CPT/HCPCS: G0463 ==

== ENCOUNTER → 2017-11-19 | Outpatient (CLI) | payer BC, OTHER | LOC: M PAIN 10:30 | DX: M51.17 Intervertebral disc disorders with radiculopathy, lumbosacral region (principal); I10 Essential (primary) hypertension; F32.9 Major depressive disorder, single episode, unspecified; E55.9 Vitamin D deficiency, unspecified; F17.210 Nicotine dependence, cigarettes, uncomplicated; Z79.899 Other long term (current) drug therapy; Z88.0 Allergy status to penicillin | CPT/HCPCS: G0463 ==

== ENCOUNTER → 2017-12-02 | Outpatient (CLI) | payer OTHER ==
[~2017-12-02] MED LIST changes: +BUPIVACAINE HCL 0.25% 30 ML VIAL As Ordered; -ISOVUE-M 300 61% 15ML VIAL (Q9967) As Ordered; -LIDOCAINE 1% SDV INJ 30 ML VIAL As Ordered; +TRIAMCINOLONE ACETONIDE SUSP 40 MG/ML VIAL (J3301) As Ordered; -methylPREDNISolone SUSP 40 MG/ML (DEPO-medrol) VIAL (J1030) As Ordered
== END ==
LOC: M PAIN 14:45
DX: M79.18 Myalgia, other site (principal); M25.511 Pain in right shoulder; M25.512 Pain in left shoulder; E55.9 Vitamin D deficiency, unspecified; I10 Essential (primary) hypertension; F32.9 Major depressive disorder, single episode, unspecified; F17.210 Nicotine dependence, cigarettes, uncomplicated; Z88.0 Allergy status to penicillin; Z86.2 Personal history of diseases of the blood and blood-forming organs and certain disorders involving the immune mechanism
CPT/HCPCS: J3301

== ENCOUNTER → 2017-12-03 | Outpatient (CLI) | payer OTHER | LOC: M PAIN 15:30 | DX: M25.511 Pain in right shoulder (principal); M25.512 Pain in left shoulder; G89.29 Other chronic pain; M79.18 Myalgia, other site; I10 Essential (primary) hypertension; E55.9 Vitamin D deficiency, unspecified; F32.9 Major depressive disorder, single episode, unspecified; F17.210 Nicotine dependence, cigarettes, uncomplicated; Z79.899 Other long term (current) drug therapy; Z88.0 Allergy status to penicillin; Z86.2 Personal history of diseases of the blood and blood-forming organs and certain disorders involving the immune mechanism | CPT/HCPCS: G0463 ==

== ENCOUNTER → 2017-12-14 | Outpatient (CLI) | payer OTHER | LOC: M RAD 10:13 | DX: M47.892 Other spondylosis, cervical region (principal); M50.223 Other cervical disc displacement at C6-C7 level; M50.222 Other cervical disc displacement at C5-C6 level; M50.221 Other cervical disc displacement at C4-C5 level | CPT/HCPCS: 70551 ==

== ENCOUNTER → 2017-12-18 | Outpatient (CLI) | payer BC | LOC: M PAIN 10:45 | DX: M51.17 Intervertebral disc disorders with radiculopathy, lumbosacral region (principal); D53.9 Nutritional anemia, unspecified; J44.9 Chronic obstructive pulmonary disease, unspecified; R91.8 Other nonspecific abnormal finding of lung field; E55.9 Vitamin D deficiency, unspecified; F17.210 Nicotine dependence, cigarettes, uncomplicated; F32.9 Major depressive disorder, single episode, unspecified; I10 Essential (primary) hypertension; R20.0 Anesthesia of skin; M79.621 Pain in right upper arm; Z79.1 Long term (current) use of non-steroidal anti-inflammatories (NSAID); Z79.891 Long term (current) use of opiate analgesic; Z79.899 Other long term (current) drug therapy; Z88.0 Allergy status to penicillin | CPT/HCPCS: G0463 ==

== ENCOUNTER → 2018-01-13 | Outpatient (CLI) | payer OTHER | LOC: M PAIN 09:45 | DX: G62.9 Polyneuropathy, unspecified (principal); M25.511 Pain in right shoulder; M25.512 Pain in left shoulder; M79.18 Myalgia, other site; I10 Essential (primary) hypertension; R25.1 Tremor, unspecified; E55.9 Vitamin D deficiency, unspecified; F32.9 Major depressive disorder, single episode, unspecified; F17.210 Nicotine dependence, cigarettes, uncomplicated; Z79.891 Long term (current) use of opiate analgesic; Z79.899 Other long term (current) drug therapy; Z88.0 Allergy status to penicillin | CPT/HCPCS: G0463 ==

== ENCOUNTER → 2018-01-27 | Outpatient (CLI) | payer BC ==
[~2018-01-27] MED LIST changes: -BUPIVACAINE HCL 0.25% 30 ML VIAL As Ordered; +GABA-843 PO; +IBUP80TA PO; +ISOVUE-M 300 61% 15ML VIAL (Q9967) As Ordered ONE; +LIDOCAINE 1% SDV INJ 30 ML VIAL As Ordered ONE; +PERCOCET PO; +SOMA350T PO; +SUBO12MI SL; -TRIAMCINOLONE ACETONIDE SUSP 40 MG/ML VIAL (J3301) As Ordered; -diazePAM 5 MG TAB As Ordered; +diazePAM 5 MG TAB As Ordered ONE; +methylPREDNISolone SUSP 40 MG/ML (DEPO-medrol) VIAL (J1030) As Ordered ONE; -oxyCODONE 5MG TAB As Ordered; +oxyCODONE 5MG TAB As Ordered ONE
--- NOTE | 2018-01-27 17:21 | REP ---
Partial lumbar spine series: Three views . History: Injection procedure for pain. 17 seconds of fluoroscopy time is reported. Findings: A sequence of three fluoroscopically obtained last image hold procedural spot radiographs of the lumbar spine document needle position and contrast injection associated with injection procedure. Electronically Signed by Jonathan Nichols MD 01/27/2018 05:13 P
--- NOTE | 2018-02-12 00:10 | ECWPNPC ---
PATIENT NAME: TAMARA MONROY : 1965 GENDER: MALE VISIT DATE: 01/27/2018 DISCHARGE DATE: 01/27/18 1124 VISIT LOCKED DATE TIME: PHYSICIAN: DONTA ISAAC MD RESOURCE: DONTA ISAAC MD REASON FOR APPOINTMENT 1. NON COMP L4/5-INTRALAMINAR LESI HISTORY OF PRESENT ILLNESS DEPRESSION SCREENING: PHQ-2 IN LAST TWO WEEKS HAVE YOU BEEN BOTHERED BY LITTLE INTEREST OR PLEASURE IN DOING THINGSNO FEELING DOWN, DEPRESSED, OR HOPELESSNO HISTORY OF PRESENT ILLNESS: PAIN THE PATIENT DESCRIBES THE PAIN... FALL RISK SCREENING: SCREENING :NO FALLS IN THE PAST YEAR CURRENT MEDICATIONS TAKING MULTIVITAMINS OTC TABLET 1 TABLET ORALLY ONCE A DAY, NOTES: 01/26 TAKING VITAMIN D 2000 UNIT CAPSULE 1 CAPSULE ORALLY ONCE A DAY, NOTES: 01/26 TAKING SOMA 350 MG TABLET 1 TABLET NEEDED ORALLY Q8H MDD3, NOTES: 01/26 TAKING CYMBALTA 60 MG CAPSULE DELAYED RELEASE PARTICLES 1 CAPSULE ORALLY (WORKERS COMP CASE) TID, NOTES: 01/26 TAKING GABAPENTIN 300 MG CAPSULE 1 CAPSULE ORALLY THREE TIMES A DAY, NOTES: 01/26 TAKING LYRICA 300 MG CAPSULE 1 CAPSULE ORALLY BID MDD2, NOTES: 01/26 TAKING AMITRIPTYLINE HCL 25 MG TABLET 3 ORALLY ONCE A DAY, NOTES: 01/26 TAKING IBUPROFEN 800 MG TABLET 1 TABLET ORALLY THREE TIMES A DAY, NOTES: 01/26 TAKING MORPHINE SULFATE ER 15 MG TABLET EXTENDED RELEASE 1 TABLET ORALLY EVERY 12 HRS MDD2, NOTES: 01/26 TAKING PERCOCET 10-325 MG TABLET 1 TABLET NEEDED ORALLY EVERY 6 HRSMDD4, NOTES: 01/26 TAKING CYMBALTA 30 MG CAPSULE DELAYED RELEASE PARTICLES 1 CAPSULE TWICE A DAY ORALLY 90 DAY(S) , NOTES: 01/26 TAKING AMLODIPINE BESYLATE 5 MG TABLET 1 TABLET ORALLY ONCE A DAY, NOTES: 01/26 TAKING LOSARTAN POTASSIUM 25 MG TABLET 1 TABLET ORALLY ONCE A DAY, NOTES: 01/26 MEDICATION LIST REVIEWED AND RECONCILED WITH THE PATIENT PAST MEDICAL HISTORY CHRONIC LOW BACK PAIN - DDD RIGHT ARM PAIN - BICEPS TENDON RUPTURE - [facility] - S/P SURGICAL REPAIR 2013 WITH RESIDUAL NUMBNESS AND PAIN - MACROCYTIC ANEMIA PULMONARY NODULES - CHEST CT 09/25/13 - MILD COPD, OLD GRANULOMATOUS DISEASE WITH CALCIFIED 11MM NODULE IN LLL, CALCIFIED LEFT HILAR NODES. 3MM NONCALCIFIED PULMONARY NODULE JUST ADJACENT TO AND CONTINUOS WITH OTHER PULMONARY NODULE. RECOMMEND F/U CT CHEST 09/25. - F/U CT DONE 08/03/15 - CHRONIC CHANGES, STABLE 3 MM NODULE C/W 09/25/13 - NO FURTHER IMAGING NEEDED VITAMIN D DEFICIENCY RIGHT TORN ROTATOR CUFF/ TORN LEFT ROTATOR CUFF DEPRESSION HYPERTENSION BL HAND TREMOR - PER IMAGING AT [facility] C-SPINE X-RAYS SHOWED SEVERE DEGENERATIVE CHANGES, MRI SHOWED MILD DEGENERATIVE CHANGES. F/U MRI PENDING PER NEUROSURGERY (COMP CASE) PERMANENT NERVE DAMAGE TO BILATERAL ARMS ALLERGIES PENICILLIN (FOR ALLERGIES USE ONLY): TOLD A CHILD TO NOT TAKE: ALLERGY SURGICAL HISTORY BICEP-RT SIDE 2014 ROTATOR CUFF TEAR REPAIR-LEFT 02/2017 COLONOSCOPY 2015 FAMILY HISTORY FATHER: 55 YRS, LIVER CANCER, DIAGNOSED WITH CANCER, OTHER MOTHER: 72 YRS, BREAST CANCER, DIAGNOSED WITH CANCER SIBLINGS: ALIVE SON(S): ALIVE, DM 2 BROTHER(S) , 2 SISTER(S) - HEALTHY. 2 SON(S) - HEALTHY. FATHER CIRRHOSIS OF LIVERMOTHER HAD BREAST CANCER, BONE CANCER. SOCIAL HISTORY GENERAL: TOBACCO USE ARE YOU A:CURRENT SMOKER ARE YOU INTERESTED IN QUITTING?NOT READY TO QUIT COUNSELED THE PATIENT ON SMOKING EFFECTS, EDUCATION [id number]/03/2018 HOW MANY CIGARETTES A DAY DO YOU SMOKE?11-20 PATIENT COUNSELED ON THE DANGERS OF TOBACCO USE AND URGED TO QUIT:01/27/2018 ALCOHOL SCREENING DID YOU HAVE A DRINK CONTAINING ALCOHOL IN THE PAST YEAR?NO POINTS0 INTERPRETATIONNEGATIVE RECREATIONAL DRUG USE DRUG USE?NO CAFFEINE CAFFEINE USE?YES HOW OFTEN AND HOW MUCH? 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 MARITAL STATUS: . PAIN CLINIC PFS, CLERGY, PUBLIC HEALTH REFERRALS PFS REFERRAL NEEDED?NO CLERGY REFERRAL NEEDED?NO PUBLIC HEALTH REFERRAL NEEDED?NO WAS THE PROVIDER NOTIFIED OF ANY PERTINENT INFO?YES N/A HAS THE PATIENT BEEN EDUCATED REGARDING HIS/HER PLAN OF CARE?YES HAS THE PATIENT BEEN EDUCATED REGARDING PAIN, THE RISK FOR PAIN, THE IMPORTANCE OF EFFECTIVE PAIN MANAGEMENT, AND THE PAIN ASSESSMENT PROCESS?YES ADVANCE DIRECTIVE ADVANCE DIRECTIVE DISCUSSED WITH PATIENT:YES HCP - SAPNA MONROY [phone] REVIEWED 01-13-18. HOSPITALIZATION/MAJOR DIAGNOSTIC PROCEDURE SEES ABOVE REVIEW OF SYSTEMS REVIEWED BY: PROVIDER: . CONSTITUTIONAL: ANY CHANGE IN YOUR MEDICAL CONDITION? NO . CHILLS NO . FEVER NO . INFECTION: DO YOU HAVE NEW INFECTIONS? NO . DO YOU HAVE HISTORY OF MRSA? NO . MUSCULOSKELETAL: ANY NEW PATTERNS OF PAIN OR NUMBNESS? NO . GASTROENTEROLOGY: ANY NEW CHANGE IN BOWEL CONTROL? NO . GENITOURINARY: ANY NEW CHANGE IN BLADDER CONTROL? NO . IS THERE A CHANCE YOU COULD BE ? NO . HEMATOLOGY/LYMPH: DO YOU TAKE ANY BLOOD THINNERS? (FOR EXAMPLE- COUMADIN, PLAVIX, AGGRENOX, PLATEL, PRADAXA, OR XARELTO) NO . WHEN WAS YOUR LAST DOSE? DATE: TIME: . NEUROLOGY: HAVE YOU FALLEN IN THE PAST 6 MONTHS? NO . ANY NEW EXTREMITY NUMBNESS OR WEAKNESS? NO . CARDIOLOGY: DO YOU HAVE A PACEMAKER OR DEFIBRILLATOR? NO . RESPIRATORY: HAVE YOU BEEN SICK IN THE PAST WEEK? NO . FEVER NO . FLU LIKE SYMPTOMS? NO . COUGH NO . INTEGUMENTARY: DO YOU HAVE ANY RASHES OR OPEN SORES? NO . ALLERGIC/IMMUNO: ARE YOU ALLERGIC TO SHELLFISH OR IV DYE? NO . ANY NEW ALLERGIES? NO . PSYCHIATRIC: DO YOU HAVE THOUGHTS OF HURTING YOURSELF OR SOMEONE ELSE? NO . ARE YOU ABUSED, NEGLECTED, OR IN AN UNSAFE ENVIRONMENT? NO . ENDOCRINOLOGY: ARE YOU DIABETIC? NO . OTHER: DO YOU NEED ANY PRESCRIPTIONS? NO . IF YES, PLEASE LIST: ____ . ANY NEW PROBLEMS WITH YOUR MEDICATIONS? NO . WHEN DID YOU LAST EAT? 01-26-18 . WHEN DID YOU LAST DRINK? 01-27-18 5AM . WHAT DID YOU LAST DRINK? BLACK COFFEE . NAME OF PERSON DRIVING YOU HOME? SHARON MONROY . DO YOU HAVE ANY OTHER QUESTIONS OR CONCERNS PT STATES THAT HE IS A CURRENT SMOKER, REFUSING ANY SMOKING CESSATION COUSELING. DS . VITAL SIGNS WT 155.2 LBS, HT 69 IN, BMI 22.92 INDEX, BP 149/95 MM HG, HR 82 /MIN, RR 18 /MIN, TEMP 98.4 F, OXYGEN SAT % 96%, SAFE IN ENV? (Y/N) Y, NA INITIALS AW 1006, REVIEWED BY: HARPREET. ASSESSMENTS INTERVERTEBRAL DISC DISORDER WITH RADICULOPATHY OF LUMBAR REGION - M51.16 (PRIMARY) PROCEDURES PRE PROCEDURE DIAGNOSIS LUMBAR DISC DISORDER WITH RADICULOPATHY POST PROCEDURE DIAGNOSIS LUMBAR DISC DISORDER WITH RADICULOPATHY PROCEDURE LUMBAR EPIDURAL STEROID INJECTION UNDER FLUOROSCOPIC GUIDANCE SURGEON DR. DONTA ISAAC MANAGER OF HOUSEKEEPING NONE ANESTHESIA LOCAL PRE PROCEDURE NOTE THE PATIENT HAS A HISTORY OF CHRONIC LOW BACK PAIN. I EVALUATE THE PATIENT AND REVIEWED THE CHART. I WENT OVER THE RISKS, ALTERNATIVES, AND BENEFITS ASSOCIATED WITH THIS PROCEDURE. THE PATIENT WOULD LIKE TO PROCEED AND GIVE CONSENT TO PERFORMED THE PROCEDURE. THE PATIENT DENIES UNEXPLAINABLE WEIGHT LOSS, FEVER, CHILLS, OR NEW CHANGES IN URINARY OR BOWEL CONTROL. DESCRIPTION OF PROCEDURE THE PATIENT WAS BROUGHT TO THE PROCEDURE ROOM AND PLACED IN THE PRONE POSITION. THE LUMBOSACRAL AREA WAS CLEANED WITH BETADINE SOLUTION AND DRAPED ASEPTICALLY. THE PROCEDURE WAS DONE UNDER STERILE CONDITIONS. I CHECKED LATERALITY AND THE LEVEL WHERE THE PROCEDURE WAS GOING TO BE PERFORMED WITH THE PATIENT AND THE SUPPORTING STAFF AT THE MOMENT OF THE TIME OUT IN THE PROCEDURE ROOM. UNDER FLUOROSCOPIC GUIDANCE, THE TARGET POINT WAS SELECTED AT THE INTERLAMINAR LEVEL OF L4-L5. LIDOCAINE WAS USED TO NUMB THE SKIN AND THE SUBCUTANEOUS TISSUE BELOW IT. EPIDURAL TUOHY NEEDLE, 17-GAUGE, WAS ADVANCED UNDER FLUOROSCOPIC GUIDANCE AND FOLLOWING PATIENT FEEDBACK UNTIL THE EPIDURAL SPACE WAS REACHED, 7 CM DEEP INTO THE SKIN BY THE LOSS OF RESISTANCE TECHNIQUE. ISOVUE M DYE 30%, 0.25 ML, WAS INJECTED SHOWING ADEQUATE SPREAD OF THE DYE. THEN, A SOLUTION OF 3 ML OF NORMAL SALINE WITH DEPO-MEDROL 60 MG WAS INJECTED SLOWLY FOLLOWING PATIENT FEEDBACK. THERE WAS NO EVIDENCE OF BLOOD, PARESTHESIA OR CEREBROSPINAL FLUID DURING THE PROCEDURE. THE PATIENT WAS SENT TO THE RECOVERY ROOM. THE PATIENT WAS MOVING THE EXTREMITIES AND DOING WELL. THERE WAS NO COMPLICATION DURING THE PROCEDURE. FLUOROSCOPY TIME WAS 17 SECONDS. POST PROCEDURE NOTE THE PATIENT WILL BE SEEN IN A FOLLOW UP IN THE NEXT FEW WEEKS. INSTRUCTIONS WERE GIVEN, QUESTIONS WERE ANSWERED, AND THE PATIENT EXPRESSED UNDERSTANDING AND AGREES WITH THE PLAN. I, COSME ROSS, DOCUMENTED THE ABOVE INFORMATION ACTING A SCRIBE FOR DR. ISAAC. I HAVE REVIEWED THE ABOVE DOCUMENT, WRITTEN BY COSME OGIBKathy AND I VERIFY THAT IT IS ACCURATE. DIAGNOSTIC IMAGING [facility] FLUORO GUIDE SPINE INJECTION (PAIN)[id number] PROCEDURE CODES 6045F RADXPS IN END [id number] PXD [id number] LUMBAR/SACRAL W/ IMAGING DISPOSITION & COMMUNICATION FOLLOW UP 2 WEEKS ELECTRONICALLY SIGNED BY DONTA ISAAC MD, MD ON 02/11/2018 AT 07:19 PM EST DISCLAIMER : THIS IS A VISIT SUMMARY EXTRACTED FROM THE [facility] CHART. IT IS NOT A COPY OF THE [facility] PROGRESS NOTE. MTDD
== END ==
LOC: M PAIN 10:00
PROVIDERS: ATTEND Anesthesiology
DX: M51.16 Intervertebral disc disorders with radiculopathy, lumbar region (principal); D53.9 Nutritional anemia, unspecified; R91.8 Other nonspecific abnormal finding of lung field; E55.9 Vitamin D deficiency, unspecified; F32.9 Major depressive disorder, single episode, unspecified; I10 Essential (primary) hypertension; R25.1 Tremor, unspecified; F17.210 Nicotine dependence, cigarettes, uncomplicated; Z79.899 Other long term (current) drug therapy; Z79.891 Long term (current) use of opiate analgesic; Z88.0 Allergy status to penicillin
CPT/HCPCS: 62323; J1030; Q9967

== ENCOUNTER → 2018-03-12 | Outpatient (CLI) | payer BC ==
[~2018-03-12] MED LIST changes: -ISOVUE-M 300 61% 15ML VIAL (Q9967) As Ordered ONE; -LIDOCAINE 1% SDV INJ 30 ML VIAL As Ordered ONE; -diazePAM 5 MG TAB As Ordered ONE; -methylPREDNISolone SUSP 40 MG/ML (DEPO-medrol) VIAL (J1030) As Ordered ONE; -oxyCODONE 5MG TAB As Ordered ONE
--- NOTE | 2018-03-13 00:34 | ECWPNPC ---
PATIENT NAME: TAMARA MONROY : 1965 GENDER: MALE VISIT DATE: 03/12/2018 DISCHARGE DATE: 03/12/18 1144 VISIT LOCKED DATE TIME: PHYSICIAN: YAS ROBERTSON RESOURCE: YAS ROBERTSON REASON FOR APPOINTMENT 1. BACK HISTORY OF PRESENT ILLNESS HISTORY OF PRESENT ILLNESS: HERE FOR POST PROCEDURE F/U.HAD LESI ON L4/5 .REPORTING MARKED REDUCTION IN PAIN THAT CONTINUES TODAY.RATING PAIN VAS 3/10. PAIN THE PATIENT DESCRIBES THE PAIN... FALL RISK SCREENING: SCREENING :NO FALLS IN THE PAST YEAR CURRENT MEDICATIONS TAKING MULTIVITAMINS OTC TABLET 1 TABLET ORALLY ONCE A DAY TAKING VITAMIN D 2000 UNIT CAPSULE 1 CAPSULE ORALLY ONCE A DAY TAKING CYMBALTA 60 MG CAPSULE DELAYED RELEASE PARTICLES 1 CAPSULE ORALLY (WORKERS COMP CASE) TID TAKING GABAPENTIN 300 MG CAPSULE 1 CAPSULE ORALLY THREE TIMES A DAY TAKING LYRICA 300 MG CAPSULE 1 CAPSULE ORALLY BID MDD2 TAKING IBUPROFEN 800 MG TABLET 1 TABLET ORALLY THREE TIMES A DAY TAKING CYMBALTA 30 MG CAPSULE DELAYED RELEASE PARTICLES 1 CAPSULE TWICE A DAY ORALLY 90 DAY(S) TAKING AMLODIPINE BESYLATE 5 MG TABLET 1 TABLET ORALLY ONCE A DAY TAKING LOSARTAN POTASSIUM 25 MG TABLET 1 TABLET ORALLY ONCE A DAY TAKING AMITRIPTYLINE HCL 25 MG TABLET 3 ORALLY ONCE A DAY TAKING PERCOCET 10-325 MG TABLET 1 TABLET NEEDED ORALLY EVERY 6 HRSMDD4 TAKING SOMA 350 MG TABLET 1 TABLET NEEDED ORALLY Q8H MDD3 TAKING MORPHINE SULFATE ER 15 MG TABLET EXTENDED RELEASE 1 TABLET ORALLY EVERY 12 HRS MDD2 MEDICATION LIST REVIEWED AND RECONCILED WITH THE PATIENT PAST MEDICAL HISTORY CHRONIC LOW BACK PAIN - DDD RIGHT ARM PAIN - BICEPS TENDON RUPTURE - [facility] - S/P SURGICAL REPAIR 2013 WITH RESIDUAL NUMBNESS AND PAIN - MACROCYTIC ANEMIA PULMONARY NODULES - CHEST CT 09/25/13 - MILD COPD, OLD GRANULOMATOUS DISEASE WITH CALCIFIED 11MM NODULE IN LLL, CALCIFIED LEFT HILAR NODES. 3MM NONCALCIFIED PULMONARY NODULE JUST ADJACENT TO AND CONTINUOS WITH OTHER PULMONARY NODULE. RECOMMEND F/U CT CHEST 09/25. - F/U CT DONE 08/03/15 - CHRONIC CHANGES, STABLE 3 MM NODULE C/W 09/25/13 - NO FURTHER IMAGING NEEDED VITAMIN D DEFICIENCY RIGHT TORN ROTATOR CUFF/ TORN LEFT ROTATOR CUFF DEPRESSION HYPERTENSION BL HAND TREMOR - PER IMAGING AT [facility] - C-SPINE X-RAYS SHOWED SEVERE DEGENERATIVE CHANGES, MRI SHOWED MILD DEGENERATIVE CHANGES. F/U MRI PENDING PER NEUROSURGERY (COMP CASE) PERMANENT NERVE DAMAGE TO BILATERAL ARMS ALLERGIES PENICILLIN (FOR ALLERGIES USE ONLY): TOLD A CHILD TO NOT TAKE: ALLERGY SURGICAL HISTORY BICEP-RT SIDE 2014 ROTATOR CUFF TEAR REPAIR-LEFT 02/2017 COLONOSCOPY 2016 FAMILY HISTORY FATHER: 55 YRS, LIVER CANCER, DIAGNOSED WITH CANCER, OTHER MOTHER: 72 YRS, BREAST CANCER, DIAGNOSED WITH CANCER SIBLINGS: ALIVE SON(S): ALIVE, DM 2 BROTHER(S) , 2 SISTER(S) - HEALTHY. 2 SON(S) - HEALTHY. FATHER CIRRHOSIS OF LIVERMOTHER HAD BREAST CANCER, BONE CANCER. SOCIAL HISTORY GENERAL: TOBACCO USE ARE YOU A:CURRENT SMOKER ARE YOU INTERESTED IN QUITTING?NOT READY TO QUIT COUNSELED THE PATIENT ON SMOKING EFFECTS, EDUCATION [id number]/30/2019 HOW MANY CIGARETTES A DAY DO YOU SMOKE?11-20 PATIENT COUNSELED ON THE DANGERS OF TOBACCO USE AND URGED TO QUIT:03/12/2018 ALCOHOL SCREENING DID YOU HAVE A DRINK CONTAINING ALCOHOL IN THE PAST YEAR?NO POINTS0 INTERPRETATIONNEGATIVE RECREATIONAL DRUG USE DRUG USE?NO CAFFEINE CAFFEINE USE?YES HOW OFTEN AND HOW MUCH? 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 MARITAL STATUS: . PAIN CLINIC PFS, CLERGY, PUBLIC HEALTH REFERRALS PFS REFERRAL NEEDED?NO CLERGY REFERRAL NEEDED?NO PUBLIC HEALTH REFERRAL NEEDED?NO WAS THE PROVIDER NOTIFIED OF ANY PERTINENT INFO?YES N/A HAS THE PATIENT BEEN EDUCATED REGARDING HIS/HER PLAN OF CARE?YES HAS THE PATIENT BEEN EDUCATED REGARDING PAIN, THE RISK FOR PAIN, THE IMPORTANCE OF EFFECTIVE PAIN MANAGEMENT, AND THE PAIN ASSESSMENT PROCESS?YES ADVANCE DIRECTIVE ADVANCE DIRECTIVE DISCUSSED WITH PATIENT:YES AD MONROY [phone] REVIEWED 01-13-18 REVIEWED WITH PATIENT 03/12/18 1057 JS. HOSPITALIZATION/MAJOR DIAGNOSTIC PROCEDURE SEES ABOVE REVIEW OF SYSTEMS REVIEWED BY: PROVIDER: YAS WHYTE . CONSTITUTIONAL: ANY CHANGE IN YOUR MEDICAL CONDITION? NO . CHILLS NO . FEVER NO . INFECTION: DO YOU HAVE NEW INFECTIONS? NO . DO YOU HAVE HISTORY OF MRSA? NO . MUSCULOSKELETAL: ANY NEW PATTERNS OF PAIN OR NUMBNESS? NO . GASTROENTEROLOGY: ANY NEW CHANGE IN BOWEL CONTROL? NO . GENITOURINARY: ANY NEW CHANGE IN BLADDER CONTROL? NO . IS THERE A CHANCE YOU COULD BE ? NO . HEMATOLOGY/LYMPH: DO YOU TAKE ANY BLOOD THINNERS? (FOR EXAMPLE- COUMADIN, PLAVIX, AGGRENOX, PLATEL, PRADAXA, OR XARELTO) NO . WHEN WAS YOUR LAST DOSE? DATE: TIME: . NEUROLOGY: HAVE YOU FALLEN IN THE PAST 12 MONTHS? NO . ANY NEW EXTREMITY NUMBNESS OR WEAKNESS? NO . CARDIOLOGY: DO YOU HAVE A PACEMAKER OR DEFIBRILLATOR? NO . RESPIRATORY: HAVE YOU BEEN SICK IN THE PAST WEEK? NO . FEVER NO . FLU LIKE SYMPTOMS? NO . COUGH NO . INTEGUMENTARY: DO YOU HAVE ANY RASHES OR OPEN SORES? NO . ALLERGIC/IMMUNO: ARE YOU ALLERGIC TO IV DYE? NO . ANY NEW ALLERGIES? NO . PSYCHIATRIC: DO YOU HAVE THOUGHTS OF HURTING YOURSELF OR SOMEONE ELSE? NO . ARE YOU ABUSED, NEGLECTED, OR IN AN UNSAFE ENVIRONMENT? NO . ENDOCRINOLOGY: ARE YOU DIABETIC? NO . OTHER: DO YOU NEED ANY PRESCRIPTIONS? YES . IF YES, PLEASE LIST: ____PERCOCET, MORPHINE (NG'S) . ANY NEW PROBLEMS WITH YOUR MEDICATIONS? NO . WHEN DID YOU LAST EAT? ____ . WHEN DID YOU LAST DRINK? ____ . WHAT DID YOU LAST DRINK? ____ . NAME OF PERSON DRIVING YOU HOME? ____ . DO YOU HAVE ANY OTHER QUESTIONS OR CONCERNS NO . VITAL SIGNS WT 155.2 LBS, HT 69 IN, BMI 22.92 INDEX, BP 132/81 MM HG, HR 83 /MIN, RR 18 /MIN, TEMP 96.8 F, OXYGEN SAT % 98%, SAFE IN ENV? (Y/N) YES, NA INITIALS SC 10:53, REVIEWED BY: NOEL. EXAMINATION GENERAL EXAMINATION: GENERAL APPEARANCE:AWAKE,ALERT ,PLEAASANT . PSYCHAFFECT NORMAL . LUNGS:LUNG SHI ARE CLEAR TO AUSCULTATION BILATERALLY. GOOD MOVEMENT OF AIR . HEART:S1, S2 IN A REGULAR RATE AND RHYTHM. NO SIGNIFICANT MURMURS, RUBS OR GALLOPS NOTED . ASSESSMENTS INTERVERTEBRAL DISC DISORDERS WITH RADICULOPATHY, LUMBOSACRAL REGION - M51.17 (PRIMARY) TREATMENT INTERVERTEBRAL DISC DISORDERS WITH RADICULOPATHY, LUMBOSACRAL REGION REFILL PERCOCET TABLET, 10-325 MG, 1 TABLET NEEDED, ORALLY, EVERY 6 HRSMDD4, 30 DAY(S), 120, REFILLS 0 REFILL MORPHINE SULFATE ER TABLET EXTENDED RELEASE, 15 MG, 1 TABLET, ORALLY, EVERY 12 HRS MDD2, 30 DAY(S), 60, REFILLS 0 NOTES: ISTOP REGISTRY REVIEWED AND DEMONSTRATES COMPLLIANCE. (REF #[id number] ) BRINGS IN MEDICATIONS WHICH IS APPROPRIATE FOR WHAT WAS DISPENSED. RECENT URINE TOXICOLOGY REVIEWED. NO UNAUTHORIZED MEDICATIONS. NO ILLICIT SUBSTANCES AND PRESCRIBED MEDICATIONS WERE PRESENT. URINE TOX TODAY, RISKS AND BENEFITS OF NARCOTIC/OPIOD MEDICATIONS WERE REVIEWED WITH PATIENT - THIS INCLUDES BUT IS NOT LIMITED TO RISK OF DEPENDANCE/DEVELOPMENT OF ADDICTION, MOOD DISTURBANCE AND DEPRESSION, OSTEOPOROSIS, HORMONAL AND LABIDAL CHANGES, RESPIRATORY DEPRESSION AND . PATIENT IS ADVISED NOT TO DRIVE OR DRINK ALCOHOL WHILE ON THESE MEDICATIONS, 1) KEEP PAIN MEDS IN THEIR ORIGINAL BOTTLES AND ANY WEEKLY PLANNERS ARE TO BE BROUGHT TO THE PAIN CENTER AT EVERY VISIT. 2) THE PATIENT IS NOT TO INCREASE DOSING OR TIMING OF THEIR PAIN MEDICATION WITHOUT SPECIFIC DIRECTION OF THEIR PAIN CENTERPROVIDER (NOT ER OR OTHER PROVIDERS). 3) ALL PAIN MEDS ARE TO BE KEPT SECURED, IN A LOCKED BOX. 4) NO PAIN MEDS ARE TO BE SHARED WITH ANY OTHER PERSON FOR ANY REASON. 5) NO PAIN MEDS MAY BE TAKEN FROM ANY FRIENDS OR RELATIVES FOR ANY REASON 6) NO MEDS OR SUBSTANCES WHICH ARE NOT LEGAL ARE TO BE USED- NO MARIJUANA, NO COCAINE, AMPHETAMINES, HEROIN, OR OTHERS. PROCEDURE CODES FA211 ESTABILISHED PATIENT [facility] FAC[facility] CHARGE DISPOSITION & COMMUNICATION FOLLOW UP 3 MONTHS ELECTRONICALLY SIGNED BY PATO DE LA CRUZ ON 03/12/2018 AT 12:05 PM EST DISCLAIMER : THIS IS A VISIT SUMMARY EXTRACTED FROM THE [employer] CHART. IT IS NOT A COPY OF THE [employer] PROGRESS NOTE. YULIET
== END ==
LOC: M PAIN 10:30
PROVIDERS: ATTEND Nurse Practitioner Family
DX: M51.17 Intervertebral disc disorders with radiculopathy, lumbosacral region (principal); I10 Essential (primary) hypertension; E55.9 Vitamin D deficiency, unspecified; F32.9 Major depressive disorder, single episode, unspecified; R25.1 Tremor, unspecified; G56.93 Unspecified mononeuropathy of bilateral upper limbs; F17.210 Nicotine dependence, cigarettes, uncomplicated; Z79.891 Long term (current) use of opiate analgesic; Z79.899 Other long term (current) drug therapy; Z88.0 Allergy status to penicillin

== ENCOUNTER → 2018-04-07 | Outpatient (CLI) | payer BC ==
--- NOTE | 2018-04-21 00:42 | ECWPNPC ---
PATIENT NAME: TAMARA MONROY : 1965 GENDER: MALE VISIT DATE: 04/07/2018 DISCHARGE DATE: 04/07/18 1132 VISIT LOCKED DATE TIME: PHYSICIAN: YAS ROBERTSON RESOURCE: YAS ROBERTSON REASON FOR APPOINTMENT 1. NON COMP- POST PROCEDURE HISTORY OF PRESENT ILLNESS HISTORY OF PRESENT ILLNESS: HERE FOR F/U OF CHRONIC LOW BACK PAIN LEFT LEG PAIN.RATING PAIN VAS 4/10.PAIN IS LOCATED IN LOW BACK WITH RADIATION DOWN LEFT LATERAL THIGH. PAIN THE PATIENT DESCRIBES THE PAIN... FALL RISK SCREENING: SCREENING : NO FALLS IN THE PAST YEAR. CURRENT MEDICATIONS TAKING MULTIVITAMINS OTC TABLET 1 TABLET ORALLY ONCE A DAY TAKING CYMBALTA 60 MG CAPSULE DELAYED RELEASE PARTICLES 1 CAPSULE ORALLY (WORKERS COMP CASE) TID TAKING IBUPROFEN 800 MG TABLET 1 TABLET ORALLY THREE TIMES A DAY TAKING AMITRIPTYLINE HCL 25 MG TABLET 3 ORALLY ONCE A DAY TAKING SOMA 350 MG TABLET 1 TABLET NEEDED ORALLY Q8H MDD3 TAKING PERCOCET 10-325 MG TABLET 1 TABLET NEEDED ORALLY EVERY 6 HRSMDD4 TAKING LOSARTAN POTASSIUM 25 MG TABLET 1 TABLET ORALLY ONCE A DAY TAKING VITAMIN D 2000 UNIT CAPSULE 1 CAPSULE ORALLY ONCE A DAY TAKING AMLODIPINE BESYLATE 5 MG TABLET 1 TABLET ORALLY ONCE A DAY TAKING CYMBALTA 30 MG CAPSULE DELAYED RELEASE PARTICLES 1 CAPSULE TWICE A DAY ORALLY 90 DAY(S) TAKING LYRICA 300 MG CAPSULE 1 CAPSULE ORALLY BID MDD2 TAKING MORPHINE SULFATE ER 15 MG TABLET EXTENDED RELEASE 1 TABLET ORALLY EVERY 12 HRS MDD2 TAKING GABAPENTIN 300 MG CAPSULE 1 CAPSULE ORALLY THREE TIMES A DAY MEDICATION LIST REVIEWED AND RECONCILED WITH THE PATIENT PAST MEDICAL HISTORY CHRONIC LOW BACK PAIN - DDD RIGHT ARM PAIN - BICEPS TENDON RUPTURE - [facility] - S/P SURGICAL REPAIR 2013 WITH RESIDUAL NUMBNESS AND PAIN - MACROCYTIC ANEMIA PULMONARY NODULES - CHEST CT 09/25/13 - MILD COPD, OLD GRANULOMATOUS DISEASE WITH CALCIFIED 11MM NODULE IN LLL, CALCIFIED LEFT HILAR NODES. 3MM NONCALCIFIED PULMONARY NODULE JUST ADJACENT TO AND CONTINUOS WITH OTHER PULMONARY NODULE. RECOMMEND F/U CT CHEST 09/25. - F/U CT DONE 08/03/15 - CHRONIC CHANGES, STABLE 3 MM NODULE C/W 09/25/13 - NO FURTHER IMAGING NEEDED VITAMIN D DEFICIENCY RIGHT TORN ROTATOR CUFF/ TORN LEFT ROTATOR CUFF DEPRESSION HYPERTENSION BL HAND TREMOR - PER IMAGING AT [facility] - C-SPINE X-RAYS SHOWED SEVERE DEGENERATIVE CHANGES, MRI SHOWED MILD DEGENERATIVE CHANGES. F/U MRI PENDING PER NEUROSURGERY (COMP CASE) PERMANENT NERVE DAMAGE TO BILATERAL ARMS ALLERGIES PENICILLIN (FOR ALLERGIES USE ONLY): TOLD A CHILD TO NOT TAKE: ALLERGY SURGICAL HISTORY BICEP-RT SIDE 2014 ROTATOR CUFF TEAR REPAIR-LEFT 02/2017 COLONOSCOPY 2016 FAMILY HISTORY FATHER: 55 YRS, LIVER CANCER, DIAGNOSED WITH CANCER, OTHER MOTHER: 72 YRS, BREAST CANCER, DIAGNOSED WITH CANCER SIBLINGS: ALIVE SON(S): ALIVE, DM 2 BROTHER(S) , 2 SISTER(S) - HEALTHY. 2 SON(S) - HEALTHY. FATHER CIRRHOSIS OF LIVERMOTHER HAD BREAST CANCER, BONE CANCER. SOCIAL HISTORY GENERAL: TOBACCO USE ARE YOU A:CURRENT SMOKER ARE YOU INTERESTED IN QUITTING?NOT READY TO QUIT COUNSELED THE PATIENT ON SMOKING EFFECTS, EDUCATION [id number]/25/2019 HOW MANY CIGARETTES A DAY DO YOU SMOKE?11-20 PATIENT COUNSELED ON THE DANGERS OF TOBACCO USE AND URGED TO QUIT:04/07/2018 ALCOHOL SCREENING DID YOU HAVE A DRINK CONTAINING ALCOHOL IN THE PAST YEAR?NO POINTS0 INTERPRETATIONNEGATIVE RECREATIONAL DRUG USE DRUG USE?NO CAFFEINE CAFFEINE USE?YES HOW OFTEN AND HOW MUCH? 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 MARITAL STATUS: . PAIN CLINIC PFS, CLERGY, PUBLIC HEALTH REFERRALS PFS REFERRAL NEEDED?NO CLERGY REFERRAL NEEDED?NO PUBLIC HEALTH REFERRAL NEEDED?NO WAS THE PROVIDER NOTIFIED OF ANY PERTINENT INFO?YES N/A HAS THE PATIENT BEEN EDUCATED REGARDING HIS/HER PLAN OF CARE?YES HAS THE PATIENT BEEN EDUCATED REGARDING PAIN, THE RISK FOR PAIN, THE IMPORTANCE OF EFFECTIVE PAIN MANAGEMENT, AND THE PAIN ASSESSMENT PROCESS?YES ADVANCE DIRECTIVE ADVANCE DIRECTIVE DISCUSSED WITH PATIENT:YES AD - SAPNA MONROY [phone] REVIEWED 01-13-18 REVIEWED WITH PATIENT 03/12/18 1057 JSREVIEWED WITH PATIENT 04/07/18 1101 NOEL. HOSPITALIZATION/MAJOR DIAGNOSTIC PROCEDURE SEES ABOVE REVIEW OF SYSTEMS REVIEWED BY: PROVIDER: YAS WHYTE . CONSTITUTIONAL: ANY CHANGE IN YOUR MEDICAL CONDITION? NO . CHILLS NO . FEVER NO . INFECTION: DO YOU HAVE NEW INFECTIONS? NO . DO YOU HAVE HISTORY OF MRSA? NO . MUSCULOSKELETAL: ANY NEW PATTERNS OF PAIN OR NUMBNESS? NO . GASTROENTEROLOGY: ANY NEW CHANGE IN BOWEL CONTROL? NO . GENITOURINARY: ANY NEW CHANGE IN BLADDER CONTROL? NO . IS THERE A CHANCE YOU COULD BE ? NO . HEMATOLOGY/LYMPH: DO YOU TAKE ANY BLOOD THINNERS? (FOR EXAMPLE- COUMADIN, PLAVIX, AGGRENOX, PLATEL, PRADAXA, OR XARELTO) NO . WHEN WAS YOUR LAST DOSE? DATE: TIME: . NEUROLOGY: HAVE YOU FALLEN IN THE PAST 12 MONTHS? NO . ANY NEW EXTREMITY NUMBNESS OR WEAKNESS? NO . CARDIOLOGY: DO YOU HAVE A PACEMAKER OR DEFIBRILLATOR? NO . RESPIRATORY: HAVE YOU BEEN SICK IN THE PAST WEEK? NO . FEVER NO . FLU LIKE SYMPTOMS? NO . COUGH NO . INTEGUMENTARY: DO YOU HAVE ANY RASHES OR OPEN SORES? NO . ALLERGIC/IMMUNO: ARE YOU ALLERGIC TO IV DYE? NO . ANY NEW ALLERGIES? NO . PSYCHIATRIC: DO YOU HAVE THOUGHTS OF HURTING YOURSELF OR SOMEONE ELSE? NO . ARE YOU ABUSED, NEGLECTED, OR IN AN UNSAFE ENVIRONMENT? NO . ENDOCRINOLOGY: ARE YOU DIABETIC? NO . OTHER: DO YOU NEED ANY PRESCRIPTIONS? YES, PERCOCET . IF YES, PLEASE LIST: ____ . ANY NEW PROBLEMS WITH YOUR MEDICATIONS? NO . WHEN DID YOU LAST EAT? ____ . WHEN DID YOU LAST DRINK? ____ . WHAT DID YOU LAST DRINK? ____ . NAME OF PERSON DRIVING YOU HOME? ____ . DO YOU HAVE ANY OTHER QUESTIONS OR CONCERNS NO . VITAL SIGNS WT 157.6 LBS, HT 69 IN, BMI 23.27 INDEX, BP 145/103 MM HG, REPEAT BP 136/92 MANUAL, HR 105 /MIN, RR 18 /MIN, TEMP 97.6 F, OXYGEN SAT % 96%, SAFE IN ENV? (Y/N) YES, NA INITIALS SC 10:56, REVIEWED BY: NOEL. EXAMINATION GENERAL EXAMINATION: GENERAL APPEARANCE:AWAKE,ALERT ,PLEAASANT . PSYCHAFFECT NORMAL . LUNGS:LUNG SHI ARE CLEAR TO AUSCULTATION BILATERALLY. GOOD MOVEMENT OF AIR . HEART:S1, S2 IN A REGULAR RATE AND RHYTHM. NO SIGNIFICANT MURMURS, RUBS OR GALLOPS NOTED . ASSESSMENTS INTERVERTEBRAL DISC DISORDERS WITH RADICULOPATHY, LUMBOSACRAL REGION - M51.17 (PRIMARY) TREATMENT INTERVERTEBRAL DISC DISORDERS WITH RADICULOPATHY, LUMBOSACRAL REGION REFILL PERCOCET TABLET, 10-325 MG, 1 TABLET NEEDED, ORALLY, EVERY 6 HRSMDD4, 30 DAY(S), 120, REFILLS 0 REFILL MORPHINE SULFATE ER TABLET EXTENDED RELEASE, 15 MG, 1 TABLET, ORALLY, EVERY 12 HRS MDD2, 30 DAY(S), 60, REFILLS 0 NOTES: ISTOP REGISTRY REVIEWED AND DEMONSTRATES COMPLLIANCE. BRINGS IN MEDICATIONS WHICH IS APPROPRIATE FOR WHAT WAS DISPENSED. RECENT URINE TOXICOLOGY REVIEWED. NO UNAUTHORIZED MEDICATIONS. NO ILLICIT SUBSTANCES AND PRESCRIBED MEDICATIONS WERE PRESENT. , RISKS AND BENEFITS OF NARCOTIC/OPIOD MEDICATIONS WERE REVIEWED WITH PATIENT - THIS INCLUDES BUT IS NOT LIMITED TO RISK OF DEPENDANCE/DEVELOPMENT OF ADDICTION, MOOD DISTURBANCE AND DEPRESSION, OSTEOPOROSIS, HORMONAL AND LABIDAL CHANGES, RESPIRATORY DEPRESSION AND . PATIENT IS ADVISED NOT TO DRIVE OR DRINK ALCOHOL WHILE ON THESE MEDICATIONS. PROCEDURE CODES FA211 ESTABILISHED PATIENT [facility] CHARGE DISPOSITION & COMMUNICATION FOLLOW UP 2 MONTHS ELECTRONICALLY SIGNED BY PATO DE LA CRUZ ON 04/20/2018 AT 01:56 PM EDT DISCLAIMER : THIS IS A VISIT SUMMARY EXTRACTED FROM THE [employer] CHART. IT IS NOT A COPY OF THE [employer] PROGRESS NOTE. YULIET
== END ==
LOC: M PAIN 11:30
PROVIDERS: ATTEND Nurse Practitioner Family
DX: M51.17 Intervertebral disc disorders with radiculopathy, lumbosacral region (principal); G89.29 Other chronic pain; I10 Essential (primary) hypertension; E55.9 Vitamin D deficiency, unspecified; F32.9 Major depressive disorder, single episode, unspecified; R25.1 Tremor, unspecified; F17.210 Nicotine dependence, cigarettes, uncomplicated; Z79.1 Long term (current) use of non-steroidal anti-inflammatories (NSAID); Z79.891 Long term (current) use of opiate analgesic; Z79.899 Other long term (current) drug therapy; Z88.0 Allergy status to penicillin

== ENCOUNTER → 2018-05-16 | Outpatient (CLI) | payer OTHER ==
--- NOTE | 2018-05-21 00:05 | ECWPNPC ---
PATIENT NAME: TAMARA MONROY : 1965 GENDER: MALE VISIT DATE: 05/16/2018 DISCHARGE DATE: 05/16/18 1240 VISIT LOCKED DATE TIME: PHYSICIAN: YAS ROBERTSON RESOURCE: YAS ROBERTSON REASON FOR APPOINTMENT 1. W/C SHOULDERS/ARMS HISTORY OF PRESENT ILLNESS FALL RISK SCREENING: HAVING SEVERE INCREASE IN TRAPEZIUS AND SHOULDER REGION PAIN OVER THE PAST 2 MONTHS..HAD TPI BILAT TRAPEZIUS AND SHOULDERS ON 12-02-17.REPORTING SEVERE RIGHT FOREARM CRAMPING PAIN AND POOR SLEEP.DESPITE LYRICA AND AMITRIPTYLINE HIS PAIN REMAINS UNCONTROLLED RESULTING IN POOR SLEEP AND INABILITY TO ATTEND TO ADL'S.HE IS UNABLE TO DRIVE AND RELIES ON HIS TO ASSIST WITH ADL'S DUE TO BILATERAL SHOULDER PAIN. RATING PAIN VAS 7/10.ALSO HAVING EPISODES OF EXCRUCIATING LEFT ARM SHOOTING PAIN WITH ROJM OF LEFT ARM COMPROMISED.DESPITE ESCALATING DOSE OF GABAPENTIN FOR NEUROPATHIC PAIN HIS PAIN PERSISTS. THIS IS A WORK RELATED INJURY WITH DOI 9-15-17.HE WAS LIFTING TIRES AND HEARD A SNAP AND HAD EXCRUIATING PAIN BILATERAL SHOULDERS R>L.HE IS STATUS POST LEFT SHOULDER SURGERY.PAIN IS WORSE IN RIGHT SHOULDER.HAS BEEN HAVING CONSTANT TREMORS IN HANDS AT REST AND WITH USE SINCE INJURY.DENIES FEVER OR ILLNESS.DENIES WEIGHT LOSS. SCREENING : NO FALLS IN THE PAST YEAR. HISTORY OF PRESENT ILLNESS: PAIN THE PATIENT DESCRIBES THE PAIN... FALL RISK SCREENING: SCREENING :NO FALLS REPORTED IN THE LAST YEAR CURRENT MEDICATIONS TAKING MULTIVITAMINS OTC TABLET 1 TABLET ORALLY ONCE A DAY TAKING CYMBALTA 60 MG CAPSULE DELAYED RELEASE PARTICLES 1 CAPSULE ORALLY (WORKERS COMP CASE) TID TAKING IBUPROFEN 800 MG TABLET 1 TABLET ORALLY THREE TIMES A DAY TAKING AMLODIPINE BESYLATE 5 MG TABLET 1 TABLET ORALLY ONCE A DAY TAKING CYMBALTA 30 MG CAPSULE DELAYED RELEASE PARTICLES 1 CAPSULE TWICE A DAY ORALLY 90 DAY(S) TAKING GABAPENTIN 300 MG CAPSULE 1 CAPSULE ORALLY THREE TIMES A DAY TAKING MORPHINE SULFATE ER 15 MG TABLET EXTENDED RELEASE 1 TO 2 DIRECTED ORALLY 2 IN AM,1 AT HS MDD3 TAKING LYRICA 300 MG CAPSULE 1 CAPSULE ORALLY BID MDD2 TAKING AMITRIPTYLINE HCL 25 MG TABLET 3 ORALLY ONCE A DAY TAKING PERCOCET 10-325 MG TABLET 1 TABLET NEEDED ORALLY EVERY 6 HRSMDD4 TAKING LOSARTAN POTASSIUM 25 MG TABLET 1 TABLET ORALLY ONCE A DAY TAKING SOMA 350 MG TABLET 1 TABLET NEEDED ORALLY Q8H MDD3 TAKING VITAMIN D (ERGOCALCIFEROL) 03603 UNIT CAPSULE 1 CAPSULE ORALLY ONCE A WEEK (MONDAYS) DISCONTINUED VITAMIN D 2000 UNIT CAPSULE 1 CAPSULE ORALLY ONCE A DAY MEDICATION LIST REVIEWED AND RECONCILED WITH THE PATIENT PAST MEDICAL HISTORY CHRONIC LOW BACK PAIN - DDD RIGHT ARM PAIN - BICEPS TENDON RUPTURE - [facility] - S/P SURGICAL REPAIR 2013 WITH RESIDUAL NUMBNESS AND PAIN - MACROCYTIC ANEMIA PULMONARY NODULES - CHEST CT 09/25/13 - MILD COPD, OLD GRANULOMATOUS DISEASE WITH CALCIFIED 11MM NODULE IN LLL, CALCIFIED LEFT HILAR NODES. 3MM NONCALCIFIED PULMONARY NODULE JUST ADJACENT TO AND CONTINUOS WITH OTHER PULMONARY NODULE. RECOMMEND F/U CT CHEST 09/25. - F/U CT DONE 08/03/15 - CHRONIC CHANGES, STABLE 3 MM NODULE C/W 09/25/13 - NO FURTHER IMAGING NEEDED VITAMIN D DEFICIENCY RIGHT TORN ROTATOR CUFF/ TORN LEFT ROTATOR CUFF DEPRESSION HYPERTENSION BL HAND TREMOR - PER IMAGING AT [facility]-SPINE X-RAYS SHOWED SEVERE DEGENERATIVE CHANGES, MRI SHOWED MILD DEGENERATIVE CHANGES. F/U MRI PENDING PER NEUROSURGERY (COMP CASE) PERMANENT NERVE DAMAGE TO BILATERAL ARMS ALLERGIES PENICILLIN (FOR ALLERGIES USE ONLY): TOLD A CHILD TO NOT TAKE - ALLERGY SURGICAL HISTORY BICEP-RT SIDE 2014 ROTATOR CUFF TEAR REPAIR-LEFT 02/2017 COLONOSCOPY 2016 FAMILY HISTORY FATHER: 55 YRS, LIVER CANCER, DIAGNOSED WITH OTHER, CANCER MOTHER: 72 YRS, BREAST CANCER, CANCER SIBLINGS: ALIVE SON(S): ALIVE, DM 2 BROTHER(S) , 2 SISTER(S) - HEALTHY. 2 SON(S) - HEALTHY. FATHER CIRRHOSIS OF LIVER\NMOTHER HAD BREAST CANCER, BONE CANCER. SOCIAL HISTORY GENERAL: TOBACCO USE ARE YOU A:CURRENT SMOKER ARE YOU INTERESTED IN QUITTING?NOT READY TO QUIT COUNSELED THE PATIENT ON SMOKING EFFECTS, EDUCATION [id number]/05/2019 HOW MANY CIGARETTES A DAY DO YOU SMOKE?11-20 PATIENT COUNSELED ON THE DANGERS OF TOBACCO USE AND URGED TO QUIT:05/16/2018 ALCOHOL SCREENING DID YOU HAVE A DRINK CONTAINING ALCOHOL IN THE PAST YEAR?NO POINTS0 INTERPRETATIONNEGATIVE RECREATIONAL DRUG USE DRUG USE?NO CAFFEINE CAFFEINE USE?YES HOW OFTEN AND HOW MUCH? 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 EXERCISE: NO REGULAR EXERCISE. MARITAL STATUS: . OTHERS AT HOME: SPOUSE. PAIN CLINIC PFS, CLERGY, PUBLIC HEALTH REFERRALS PFS REFERRAL NEEDED?NO CLERGY REFERRAL NEEDED?NO PUBLIC HEALTH REFERRAL NEEDED?NO WAS THE PROVIDER NOTIFIED OF ANY PERTINENT INFO?YES N/A HAS THE PATIENT BEEN EDUCATED REGARDING HIS/HER PLAN OF CARE?YES HAS THE PATIENT BEEN EDUCATED REGARDING PAIN, THE RISK FOR PAIN, THE IMPORTANCE OF EFFECTIVE PAIN MANAGEMENT, AND THE PAIN ASSESSMENT PROCESS?YES ADVANCE DIRECTIVE ADVANCE DIRECTIVE DISCUSSED WITH PATIENT:YES HCP - SAPNA MONROY [phone] REVIEWED 01-13-18 REVIEWED WITH PATIENT 03/12/18 1057 JSREVIEWED WITH PATIENT 04/07/18 1101 JS. HOSPITALIZATION/MAJOR DIAGNOSTIC PROCEDURE SEES ABOVE REVIEW OF SYSTEMS REVIEWED BY: PROVIDER: YAS WHYTE . CONSTITUTIONAL: ANY CHANGE IN YOUR MEDICAL CONDITION? NO . CHILLS NO . FEVER NO . INFECTION: DO YOU HAVE NEW INFECTIONS? NO . DO YOU HAVE HISTORY OF MRSA? NO . MUSCULOSKELETAL: ANY NEW PATTERNS OF PAIN OR NUMBNESS? NO . GASTROENTEROLOGY: ANY NEW CHANGE IN BOWEL CONTROL? NO . GENITOURINARY: ANY NEW CHANGE IN BLADDER CONTROL? NO . IS THERE A CHANCE YOU COULD BE ? NO . HEMATOLOGY/LYMPH: DO YOU TAKE ANY BLOOD THINNERS? (FOR EXAMPLE- COUMADIN, PLAVIX, AGGRENOX, PLATEL, PRADAXA, OR XARELTO) NO . WHEN WAS YOUR LAST DOSE? DATE: TIME: . NEUROLOGY: HAVE YOU FALLEN IN THE PAST 12 MONTHS? NO . ANY NEW EXTREMITY NUMBNESS OR WEAKNESS? NO . CARDIOLOGY: DO YOU HAVE A PACEMAKER OR DEFIBRILLATOR? NO . RESPIRATORY: HAVE YOU BEEN SICK IN THE PAST WEEK? NO . FEVER NO . FLU LIKE SYMPTOMS? NO . COUGH NO . INTEGUMENTARY: DO YOU HAVE ANY RASHES OR OPEN SORES? NO . ALLERGIC/IMMUNO: ARE YOU ALLERGIC TO IV DYE? NO . ANY NEW ALLERGIES? NO . PSYCHIATRIC: DO YOU HAVE THOUGHTS OF HURTING YOURSELF OR SOMEONE ELSE? NO . ARE YOU ABUSED, NEGLECTED, OR IN AN UNSAFE ENVIRONMENT? NO . ENDOCRINOLOGY: ARE YOU DIABETIC? NO . OTHER: DO YOU NEED ANY PRESCRIPTIONS? NO . IF YES, PLEASE LIST: ____ . ANY NEW PROBLEMS WITH YOUR MEDICATIONS? NO . WHEN DID YOU LAST EAT? ____ . WHEN DID YOU LAST DRINK? ____ . WHAT DID YOU LAST DRINK? ____ . NAME OF PERSON DRIVING YOU HOME? ____ . DO YOU HAVE ANY OTHER QUESTIONS OR CONCERNS NO . VITAL SIGNS WT 161.6 LBS, HT 69 IN, BMI 23.86 INDEX, BP 145/87 MM HG, HR 84 /MIN, RR 18 /MIN, TEMP 97.8 F, OXYGEN SAT % 96%, NA INITIALS CM 1140, REVIEWED BY: VD. EXAMINATION SHOULDER / UPPER ARM: SHOULDER:BILATERAL. RANGE OF MOTION:LIMITED RANGE OF MOTION ,30 DEGREES ABDUCTION HAS TO STOP DUE TO PAIN. 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 PALPATION:TENDER BILAT.R>L TRIGGER POINTS OVER RHOMBOID ,MIDSCAPULAR SHOULDERS BILAT.. ASSESSMENTS MYALGIA, OTHER SITE - M79.18 (PRIMARY) TREATMENT MYALGIA, OTHER SITE REFILL LYRICA CAPSULE, 300 MG, 1 CAPSULE, ORALLY, BID MDD2, 30 DAY(S), 60, REFILLS 2 REFILL AMITRIPTYLINE HCL TABLET, 25 MG, 3, ORALLY, ONCE A DAY, 30 DAY(S), 90, REFILLS 2 NOTES: TPI BILAT. SHOULDERS/TRAPEZIUS-W/C . OTHERS NOTES: W/C REQUEST TPI TRAPEZIUS /SHOULDER BILAT . PROCEDURES PN WORKMANS' COMP OPINION IN YOUR OPINION, WAS THE INCIDENT THAT THE PATIENT DESCRIBED THE COMPETENT MEDICAL CAUSE OF THIS INJURY/ILLNESS? YES ARE THE PATIENT'S COMPLAINTS CONSISTENT WITH HIS/HER HISTORY OF THE INJURY/ILLNESS? YES IS THE PATIENT'S HISTORY OF THE INJURY/ILLNESS CONSISTENT WITH YOUR OBJECTIVE FINDING? YES WHAT IS THE PERCENTAGE OF TEMPORARY IMPAIRMENT? MARKED = 75% IS THE PATIENT WORKING? NO DOCTOR ON SITE: DONTA QURESHI MD PREVENTIVE MEDICINE PAIN CLINIC TEACHING: PROCEDURE TEACHING PRE PROCEDURE INSTRUCTIONS REVIEWED WITH PT. VERBALIZED UNDERSTANDING.. PROCEDURE CODES FA211 ESTABILISHED PATIENT [facility] FACILITY CHARGE DISPOSITION & COMMUNICATION FOLLOW UP POST (REASON: W/C REQUEST TPI TRAPEZIUS /SHOULDER BILAT) ELECTRONICALLY SIGNED BY PATO DE LA CRUZ ON 05/20/2018 AT 04:08 PM EDT DISCLAIMER : THIS IS A VISIT SUMMARY EXTRACTED FROM THE [employer] CHART. IT IS NOT A COPY OF THE [employer] PROGRESS NOTE. YULIET
== END ==
LOC: M PAIN 11:00
PROVIDERS: ATTEND Nurse Practitioner Family
DX: M79.18 Myalgia, other site (principal); E55.9 Vitamin D deficiency, unspecified; Z86.59 Personal history of other mental and behavioral disorders; I10 Essential (primary) hypertension; F17.210 Nicotine dependence, cigarettes, uncomplicated; Z88.0 Allergy status to penicillin; Z79.1 Long term (current) use of non-steroidal anti-inflammatories (NSAID); Z79.891 Long term (current) use of opiate analgesic; Z79.899 Other long term (current) drug therapy

== ENCOUNTER → 2018-07-30 | Outpatient (CLI) | payer OTHER, BC ==
[~2018-07-30] MED LIST changes: +BUPIVACAINE HCL 0.25% 10 ML VIAL As Ordered ONE; +BUPIVACAINE HCL 0.25% 30 ML VIAL As Ordered ONE; +TRIAMCINOLONE ACETONIDE SUSP 40 MG/ML VIAL (J3301) As Ordered ONE; +diazePAM 5 MG TAB As Ordered ONE; +oxyCODONE 5MG TAB As Ordered ONE
--- NOTE | 2018-08-11 00:47 | ECWPNPC ---
PATIENT NAME: TAMARA MONROY : 1965 GENDER: MALE VISIT DATE: 07/30/2018 DISCHARGE DATE: 07/30/18 1027 VISIT LOCKED DATE TIME: PHYSICIAN: DONTA ISAAC MD RESOURCE: DONTA ISAAC MD REASON FOR APPOINTMENT 1. TPI UNDER W/C HISTORY OF PRESENT ILLNESS HISTORY OF PRESENT ILLNESS: PAIN THE PATIENT DESCRIBES THE PAIN... FALL RISK SCREENING: SCREENING :NO FALLS REPORTED IN THE LAST YEAR CURRENT MEDICATIONS TAKING CYMBALTA 60 MG CAPSULE DELAYED RELEASE PARTICLES 1 CAPSULE ORALLY (WORKERS COMP CASE) TID, NOTES: 07/29 1799 TAKING AMITRIPTYLINE HCL 25 MG TABLET 3 ORALLY ONCE A DAY, NOTES: 07/29 1799 TAKING MULTIVITAMINS OTC TABLET 1 TABLET ORALLY ONCE A DAY, NOTES: 07/29 1799 TAKING AMLODIPINE BESYLATE 5 MG TABLET 1 TABLET ORALLY ONCE A DAY, NOTES: 07/29 1799 TAKING LOSARTAN POTASSIUM 25 MG TABLET 1 TABLET ORALLY ONCE A DAY, NOTES: 07/29 1799 TAKING VITAMIN D (ERGOCALCIFEROL) 09530 UNIT CAPSULE 1 CAPSULE ORALLY ONCE A WEEK (MONDAYS), NOTES: 07/28 TAKING LYRICA 300 MG CAPSULE 1 CAPSULE ORALLY BID MDD2, NOTES: 07/29 1799 TAKING SOMA 350 MG TABLET 1 TABLET ORALLY Q8H MDD3, NOTES: 07/29 1799 TAKING PERCOCET 10-325 MG TABLET 1 TABLET NEEDED ORALLY EVERY 6 HRSMDD4, NOTES: 07/29 1799 TAKING IBUPROFEN 800 MG TABLET 1 TABLET ORALLY NEEDED THREE TIMES A DAY, NOTES: 07/29 1799 TAKING GABAPENTIN 300 MG CAPSULE 1 CAPSULE ORALLY THREE TIMES A DAY, NOTES: 07/29 1799 TAKING MORPHINE SULFATE ER 15 MG TABLET EXTENDED RELEASE 1 TO 2 DIRECTED ORALLY 2 IN AM,1 AT HS MDD3, NOTES: 07/29 1799 DISCONTINUED CYMBALTA 30 MG CAPSULE DELAYED RELEASE PARTICLES 1 CAPSULE TWICE A DAY ORALLY 90 DAY(S) DISCONTINUED FLEXERIL 5 MG TABLET 1 TABLET ORALLY THREE TIMES A DAY MEDICATION LIST REVIEWED AND RECONCILED WITH THE PATIENT PAST MEDICAL HISTORY CHRONIC LOW BACK PAIN - DDD RIGHT ARM PAIN - BICEPS TENDON RUPTURE - [facility]THO - S/P SURGICAL REPAIR 2013 WITH RESIDUAL NUMBNESS AND PAIN - MACROCYTIC ANEMIA PULMONARY NODULES - CHEST CT 09/25/13 - MILD COPD, OLD GRANULOMATOUS DISEASE WITH CALCIFIED 11MM NODULE IN LLL, CALCIFIED LEFT HILAR NODES. 3MM NONCALCIFIED PULMONARY NODULE JUST ADJACENT TO AND CONTINUOS WITH OTHER PULMONARY NODULE. RECOMMEND F/U CT CHEST 09/25. - F/U CT DONE 08/03/15 - CHRONIC CHANGES, STABLE 3 MM NODULE C/W 09/25/13 - NO FURTHER IMAGING NEEDED VITAMIN D DEFICIENCY RIGHT TORN ROTATOR CUFF/ TORN LEFT ROTATOR CUFF DEPRESSION HYPERTENSION BL HAND TREMOR - PER IMAGING AT [facility]THO - C-SPINE X-RAYS SHOWED SEVERE DEGENERATIVE CHANGES, MRI SHOWED MILD DEGENERATIVE CHANGES. F/U MRI PENDING PER NEUROSURGERY (COMP CASE) PERMANENT NERVE DAMAGE TO BILATERAL ARMS ALLERGIES PENICILLIN (FOR ALLERGIES USE ONLY): TOLD A CHILD TO NOT TAKE - ALLERGY SURGICAL HISTORY BICEP-RT SIDE 2014 ROTATOR CUFF TEAR REPAIR-LEFT 02/2017 COLONOSCOPY 2015 FAMILY HISTORY FATHER: 55 YRS, LIVER CANCER, DIAGNOSED WITH CANCER, OTHER MOTHER: 72 YRS, BREAST CANCER, CANCER SIBLINGS: ALIVE SON(S): ALIVE, DM 2 BROTHER(S) , 2 SISTER(S) - HEALTHY. 2 SON(S) - HEALTHY. FATHER CIRRHOSIS OF LIVER\\NMOTHER HAD BREAST CANCER, BONE CANCER. SOCIAL HISTORY GENERAL: TOBACCO USE ARE YOU A:CURRENT SMOKER ARE YOU INTERESTED IN QUITTING?NOT READY TO QUIT COUNSELED THE PATIENT ON SMOKING EFFECTS, EDUCATION [id number]/19/2019 HOW MANY CIGARETTES A DAY DO YOU SMOKE?6-10 HOW OFTEN DO YOU SMOKE CIGARETTES?EVERY DAY PATIENT COUNSELED ON THE DANGERS OF TOBACCO USE AND URGED TO QUIT:07/30/2018 OTHERS AT HOME: SPOUSE. EDUCATION LEVEL OF EDUCATION:COLLEGE DIET: REGULAR. LANGUAGE LANGUAGES SPOKEN:THAI DOMESTIC VIOLENCE DO YOU FEEL SAFE IN YOUR ENVIRONMENT?YES RECREATIONAL DRUG USE DRUG USE?NO EXERCISE: NO REGULAR EXERCISE. LEARNING BARRIERS / SPECIAL NEEDS CHANGE FROM LAST VISIT?NO BARRIERS TO LEARNING?NO HEARING IMPAIRED?NO VISION IMPAIRED?YES :CORRECTIVE LENSES COGNITIVELY IMPAIRED?NO READINESS TO LEARN?YES LEARNING PREFERENCES?NO LEARNING CAPABILITIES PRESENT?YES EMOTIONAL BARRIERS?NO SPECIAL DEVICES?NO PIPE FINISHER NEEDED?NO PAIN CLINIC PFS, CLERGY, PUBLIC HEALTH REFERRALS PFS REFERRAL NEEDED?NO CLERGY REFERRAL NEEDED?NO PUBLIC HEALTH REFERRAL NEEDED?NO WAS THE PROVIDER NOTIFIED OF ANY PERTINENT INFO? N/A HAS THE PATIENT BEEN EDUCATED REGARDING HIS/HER PLAN OF CARE?YES HAS THE PATIENT BEEN EDUCATED REGARDING PAIN, THE RISK FOR PAIN, THE IMPORTANCE OF EFFECTIVE PAIN MANAGEMENT, AND THE PAIN ASSESSMENT PROCESS?YES LATEX QUESTIONNAIRE LATEX ALLERGY : HAVE YOU EVER DEVELOPED ANY TYPE OF REACTION AFTER HANDLING LATEX PRODUCTS SUCH RUBBER GLOVES, CONDOMS, DIAPHRAGMS, BALLOONS, SOCKS, OR UNDERWEAR?NO LATEX ALLERGY : HAVE YOU EVER DEVELOPED ANY TYPE OF REACTION DURING OR AFTER DENTAL APPOINTMENT, VAGINAL/RECTAL EXAMINATION, SURGICAL PROCEDURE, OR ANY OTHER EXPOSURE?NO LATEX RISK : HAVE YOU EVER HAD ANY DIFFICULTY BREATHING OR HIVES AFTER EATING OR HANDLING ANY FRUITS, OR VEGETABLES; SUCH KIWI, BANANAS, STONE FRUITS, OR CHESTNUTSNO LATEX RISK : DO YOU HAVE A PREVIOUS PERSONAL HISTORY OF MORE THAN NINE SURGERIES, SPINA BIFIDA, OR REPEATED CATHERTIZATIONS? NO LATEX RISK : ARE YOU FREQUENTLY EXPOSED TO LATEX PRODUCTS IN YOUR OCCUPATION?NO DATE ASKED : 07/30/2018 CAFFEINE CAFFEINE USE?YES HOW OFTEN AND HOW MUCH? 6 CUPS COFFEE/DAY ADVANCE DIRECTIVE ADVANCE DIRECTIVE DISCUSSED WITH PATIENT:YES HCP - SAPNA TERRYW [phone] ANABAPTISM [id number] BAPTIST MARITAL STATUS: . 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 SEXUAL HX HAD SEX IN THE LAST 12 MONTHS (VAGINAL, ORAL, OR ANAL)?NO HAVE YOU EVER HAD AN STD?NO REVIEWED 01-13-18 REVIEWED WITH PATIENT 03/12/18 1057 JSREVIEWED WITH PATIENT 04/07/18 1101 07/30/18 REVIEWED WITH PT. AD. HOSPITALIZATION/MAJOR DIAGNOSTIC PROCEDURE SEES ABOVE REVIEW OF SYSTEMS REVIEWED BY: PROVIDER: . CONSTITUTIONAL: ANY CHANGE IN YOUR MEDICAL CONDITION? NO . CHILLS NO . FEVER NO . INFECTION: DO YOU HAVE NEW INFECTIONS? NO . DO YOU HAVE HISTORY OF MRSA? NO . MUSCULOSKELETAL: ANY NEW PATTERNS OF PAIN OR NUMBNESS? NO . GASTROENTEROLOGY: ANY NEW CHANGE IN BOWEL CONTROL? NO . GENITOURINARY: ANY NEW CHANGE IN BLADDER CONTROL? NO . IS THERE A CHANCE YOU COULD BE ? NO . HEMATOLOGY/LYMPH: DO YOU TAKE ANY BLOOD THINNERS? (FOR EXAMPLE- COUMADIN, PLAVIX, AGGRENOX, PLATEL, PRADAXA, OR XARELTO) NO . WHEN WAS YOUR LAST DOSE? DATE: TIME: . NEUROLOGY: HAVE YOU FALLEN IN THE PAST 12 MONTHS? NO . ANY NEW EXTREMITY NUMBNESS OR WEAKNESS? NO . CARDIOLOGY: DO YOU HAVE A PACEMAKER OR DEFIBRILLATOR? NO . RESPIRATORY: HAVE YOU BEEN SICK IN THE PAST WEEK? NO . FEVER NO . FLU LIKE SYMPTOMS? NO . COUGH NO . INTEGUMENTARY: DO YOU HAVE ANY RASHES OR OPEN SORES? NO . ALLERGIC/IMMUNO: ARE YOU ALLERGIC TO IV DYE? NO . ANY NEW ALLERGIES? NO . PSYCHIATRIC: DO YOU HAVE THOUGHTS OF HURTING YOURSELF OR SOMEONE ELSE? NO . ARE YOU ABUSED, NEGLECTED, OR IN AN UNSAFE ENVIRONMENT? NO . ENDOCRINOLOGY: ARE YOU DIABETIC? NO . OTHER: DO YOU NEED ANY PRESCRIPTIONS? YES . IF YES, PLEASE LIST: PERCOCET . ANY NEW PROBLEMS WITH YOUR MEDICATIONS? NO . WHEN DID YOU LAST EAT? 07/29/18 1800 . WHEN DID YOU LAST DRINK? 07/30/18 0400 . WHAT DID YOU LAST DRINK? WATER . NAME OF PERSON DRIVING YOU HOME? , SAPNA . DO YOU HAVE ANY OTHER QUESTIONS OR CONCERNS NO PT HAS NOT HAD ANY VACCINES IN THE PAST 30 DAYS . VITAL SIGNS WT 161 LBS, HT 69 IN, BMI 23.77 INDEX, BP 137/93 MM HG, HR 76 /MIN, RR 18 /MIN, TEMP 98.2 F, OXYGEN SAT % 96%, SAFE IN ENV? (Y/N) Y, NA INITIALS NV 09:09, REVIEWED BY: AD. ASSESSMENTS MYALGIA, OTHER SITE - M79.18 (PRIMARY) PROCEDURES PN WORKMANS' COMP OPINION IN YOUR OPINION, WAS THE INCIDENT THAT THE PATIENT DESCRIBED THE COMPETENT MEDICAL CAUSE OF THIS INJURY/ILLNESS? YES ARE THE PATIENT'S COMPLAINTS CONSISTENT WITH HIS/HER HISTORY OF THE INJURY/ILLNESS? YES IS THE PATIENT'S HISTORY OF THE INJURY/ILLNESS CONSISTENT WITH YOUR OBJECTIVE FINDING? YES WHAT IS THE PERCENTAGE OF TEMPORARY IMPAIRMENT? MARKED = 75% IS THE PATIENT WORKING? NO DOCTOR ON SITE: DONTA QURESHI MD PN TRIGGER POINT INJECTION WITH STEROIDS PRE PROCEDURE DIAGNOSIS 1. MYALGIA 2. PAIN AT BILATERAL NECK AREA AND BILATERAL SHOULDER AREA POST PROCEDURE DIAGNOSIS 1. MYALGIA 2. PAIN AT BILATERAL NECK AREA AND BILATERAL SHOULDER AREA PROCEDURE TRIGGER POINT INJECTION AT BILATERAL NECK AREA AND BILATERAL SHOULDER AREA SURGEON DR. DONTA ISAAC SUPERVISORY FORESTER NONE ANESTHESIA LOCAL PRE PROCEDURE NOTE THE PATIENT HAS A HISTORY OF CHRONIC PAIN AT THE RIGHT AND LEFT NECK AREA AND RIGHT AND LEFT SHOULDER AREA. I EVALUATE THE PATIENT AND REVIEWED THE CHART. THERE IS EVIDENCE OF BANDS OF TISSUE WITH RESTRICTION OF MOVEMENT AND PRESENCE OF TRIGGER POINT AT THE AFFECTED AREA. I WENT OVER THE RISKS, ALTERNATIVES, AND BENEFITS ASSOCIATED WITH THIS PROCEDURE. THE PATIENT WOULD LIKE TO PROCEED AND GIVE CONSENT TO PERFORMED THE PROCEDURE. THE PATIENT DENIES UNEXPLAINABLE WEIGHT LOSS, FEVER, CHILLS, OR NEW CHANGES IN URINARY OR BOWEL CONTROL DESCRIPTION OF PROCEDURE THE PATIENT WAS BROUGHT TO THE PROCEDURE ROOM AND PLACED IN THE SITTING POSITION. THE AREA WAS CLEANED WITH ALCOHOL. THE PROCEDURE WAS DONE USING ASEPTIC STERILE TECHNIQUE. I CHECKED LATERALITY AND THE LEVEL WHERE THE PROCEDURE WAS GOING TO BE PERFORMED WITH THE PATIENT AND THE SUPPORTING STAFF AT THE MOMENT OF THE TIME OUT IN THE PROCEDURE ROOM. USING A 25-GAUGE NEEDLE, TRIGGER POINTS WERE INJECTED AT THE RIGHT AND LEFT NECK AREA AND RIGHT AND LEFT SHOULDER AREA WITH A TOTAL OF 40 ML OF BUPIVACAINE 0.25% AND KENALOG 40 MG. THERE WAS NO EVIDENCE OF BLOOD, PARESTHESIA OR CEREBROSPINAL FLUID DURING THE PROCEDURE. THE PATIENT WAS SENT TO THE RECOVERY ROOM. THE PATIENT WAS MOVING THE EXTREMITIES AND DOING WELL. THERE WAS NO COMPLICATION DURING THE PROCEDURE POST PROCEDURE NOTE THE PATIENT WILL BE SEEN IN A FOLLOW UP IN THE NEXT FEW WEEKS. INSTRUCTIONS WERE GIVEN, QUESTIONS WERE ANSWERED, AND THE PATIENT EXPRESSED UNDERSTANDING AND AGREES WITH THE PLAN. I, COSME ROSS, DOCUMENTED THE ABOVE INFORMATION ACTING A SCRIBE FOR DR. ISAAC. I HAVE REVIEWED THE ABOVE DOCUMENT, WRITTEN BY COSME DEVI AND I VERIFY THAT IT IS ACCURATE. PROCEDURE CODES 12829 INJECT TRIGGER POINTS 3/> DISPOSITION & COMMUNICATION FOLLOW UP 3 WEEKS ELECTRONICALLY SIGNED BY DONTA ISACA MD, MD ON 08/10/2018 AT 07:34 PM EDT DISCLAIMER : THIS IS A VISIT SUMMARY EXTRACTED FROM THE [employer] CHART. IT IS NOT A COPY OF THE [employer] PROGRESS NOTE. JIMBOD
== END ==
LOC: M PAIN 08:30
PROVIDERS: ATTEND Anesthesiology
DX: M79.18 Myalgia, other site (principal); F17.210 Nicotine dependence, cigarettes, uncomplicated; M51.36 Other intervertebral disc degeneration, lumbar region; R91.8 Other nonspecific abnormal finding of lung field; E55.9 Vitamin D deficiency, unspecified; I10 Essential (primary) hypertension; F32.9 Major depressive disorder, single episode, unspecified; R25.1 Tremor, unspecified; D53.9 Nutritional anemia, unspecified; Z79.891 Long term (current) use of opiate analgesic; Z79.899 Other long term (current) drug therapy; Z88.0 Allergy status to penicillin
CPT/HCPCS: 20553; J3301

== ENCOUNTER → 2018-10-08 | Outpatient (CLI) | payer BC ==
[~2018-10-08] MED LIST changes: -BUPIVACAINE HCL 0.25% 10 ML VIAL As Ordered ONE; -BUPIVACAINE HCL 0.25% 30 ML VIAL As Ordered ONE; +ISOVUE-M 200 41% 20ML VIAL (Q9966) As Ordered ONE; +LIDOCAINE 1% SDV INJ 30 ML VIAL As Ordered ONE; -TRIAMCINOLONE ACETONIDE SUSP 40 MG/ML VIAL (J3301) As Ordered ONE; +methylPREDNISolone SUSP 40 MG/ML (DEPO-medrol) VIAL (J1030) As Ordered ONE
--- NOTE | 2018-10-08 16:08 | REP ---
Partial lumbar spine series: Three views . History: Injection procedure for pain. Six seconds of fluoroscopy time is reported. Findings: A sequence of three fluoroscopically obtained last image hold procedural spot radiographs of the lumbar spine document needle position and contrast injection associated with injection procedure. Electronically Signed by Jonathan Nichols MD 10/08/2018 04:00 P
--- NOTE | 2018-10-16 02:14 | ECWPNPC ---
PATIENT NAME: TAMARA MONROY : 1965 GENDER: MALE VISIT DATE: 10/08/2018 DISCHARGE DATE: 10/08/18 1404 VISIT LOCKED DATE TIME: PHYSICIAN: DONTA ISAAC MD RESOURCE: DONTA ISAAC MD REASON FOR APPOINTMENT 1. L4/5 LESI. NON COMP HISTORY OF PRESENT ILLNESS HISTORY OF PRESENT ILLNESS: PAIN THE PATIENT DESCRIBES THE PAIN... FALL RISK SCREENING: SCREENING :NO FALLS REPORTED IN THE LAST YEAR CURRENT MEDICATIONS TAKING CYMBALTA 60 MG CAPSULE DELAYED RELEASE PARTICLES 1 CAPSULE ORALLY (WORKERS COMP CASE) TID, NOTES: [id number] TAKING MULTIVITAMINS OTC TABLET 1 TABLET ORALLY ONCE A DAY, NOTES: 10-07-18 1800 TAKING AMLODIPINE BESYLATE 5 MG TABLET 1 TABLET ORALLY ONCE A DAY, NOTES: 10-07-18 1800 TAKING LOSARTAN POTASSIUM 25 MG TABLET 1 TABLET ORALLY ONCE A DAY, NOTES: 10-07-18 1800 TAKING VITAMIN D (ERGOCALCIFEROL) 21037 UNIT CAPSULE 1 CAPSULE ORALLY ONCE A WEEK (MONDAYS), NOTES: 10-06-18 TAKING AMITRIPTYLINE HCL 25 MG TABLET 3 ORALLY ONCE A DAY, NOTES: 10-07-18 1800 TAKING LYRICA 300 MG CAPSULE 1 CAPSULE ORALLY BID MDD2, NOTES: 10-07-18 1800 TAKING SOMA 350 MG TABLET 1 TABLET ORALLY Q8H MDD3, NOTES: 10-07-18 1800 TAKING IBUPROFEN 800 MG TABLET 1 TABLET ORALLY NEEDED THREE TIMES A DAY, NOTES: 10-07-18 1800 TAKING MORPHINE SULFATE ER 15 MG TABLET EXTENDED RELEASE 1 TO 2 DIRECTED ORALLY 1 IN AM,2 AT HS MDD3, NOTES: 10-07-18 1800 TAKING BACLOFEN 10 MG TABLET 1 TABLET WITH FOOD OR MILK ORALLY Q6H QID, NOTES: 10-07-18 1800 TAKING PERCOCET 10-325 MG TABLET 1 TABLET NEEDED ORALLY EVERY 6 HRSMDD4, NOTES: 10-07-18 1800 TAKING GABAPENTIN 300 MG CAPSULE 1 CAPSULE ORALLY THREE TIMES A DAY, NOTES: 10-07-181799 MEDICATION LIST REVIEWED AND RECONCILED WITH THE PATIENT PAST MEDICAL HISTORY CHRONIC LOW BACK PAIN - DDD RIGHT ARM PAIN - BICEPS TENDON RUPTURE - [facility]THO - S/P SURGICAL REPAIR 2013 WITH RESIDUAL NUMBNESS AND PAIN - MACROCYTIC ANEMIA PULMONARY NODULES - CHEST CT 09/25/13 - MILD COPD, OLD GRANULOMATOUS DISEASE WITH CALCIFIED 11MM NODULE IN LLL, CALCIFIED LEFT HILAR NODES. 3MM NONCALCIFIED PULMONARY NODULE JUST ADJACENT TO AND CONTINUOS WITH OTHER PULMONARY NODULE. RECOMMEND F/U CT CHEST 09/25. - F/U CT DONE 08/03/15 - CHRONIC CHANGES, STABLE 3 MM NODULE C/W 09/25/13 - NO FURTHER IMAGING NEEDED VITAMIN D DEFICIENCY RIGHT TORN ROTATOR CUFF/ TORN LEFT ROTATOR CUFF DEPRESSION HYPERTENSION BL HAND TREMOR - PER IMAGING AT [facility]-SPINE X-RAYS SHOWED SEVERE DEGENERATIVE CHANGES, MRI SHOWED MILD DEGENERATIVE CHANGES. F/U MRI PENDING PER NEUROSURGERY (COMP CASE) PERMANENT NERVE DAMAGE TO BILATERAL ARMS COPD ALLERGIES PENICILLIN (FOR ALLERGIES USE ONLY): TOLD A CHILD TO NOT TAKE - ALLERGY SURGICAL HISTORY BICEP-RT SIDE 2014 ROTATOR CUFF TEAR REPAIR-LEFT 02/2017 COLONOSCOPY 2016 RIGHT ROTATOR CUFF REPAIR 06/2018 NECK PAIN FAMILY HISTORY FATHER: 55 YRS, LIVER CANCER, DIAGNOSED WITH CANCER, OTHER MOTHER: 72 YRS, BREAST CANCER, CANCER SIBLINGS: ALIVE SON(S): ALIVE, DM 2 BROTHER(S) , 2 SISTER(S) - HEALTHY. 2 SON(S) - HEALTHY. FATHER CIRRHOSIS OF LIVER\\NMOTHER HAD BREAST CANCER, BONE CANCER. SOCIAL HISTORY GENERAL: TOBACCO USE ARE YOU A:CURRENT SMOKER ARE YOU INTERESTED IN QUITTING?NOT READY TO QUIT COUNSELED THE PATIENT ON SMOKING EFFECTS, EDUCATION [id number]/16/2019 HOW MANY CIGARETTES A DAY DO YOU SMOKE?6-10 HOW OFTEN DO YOU SMOKE CIGARETTES?EVERY DAY PATIENT COUNSELED ON THE DANGERS OF TOBACCO USE AND URGED TO QUIT:07/30/2018 OTHERS AT HOME: SPOUSE. EDUCATION LEVEL OF EDUCATION:COLLEGE DIET: REGULAR. LANGUAGE LANGUAGES SPOKEN:LATVIAN DOMESTIC VIOLENCE DO YOU FEEL SAFE IN YOUR ENVIRONMENT?YES RECREATIONAL DRUG USE DRUG USE?NO EXERCISE: NO REGULAR EXERCISE. LEARNING BARRIERS / SPECIAL NEEDS CHANGE FROM LAST VISIT?NO BARRIERS TO LEARNING?NO HEARING IMPAIRED?NO VISION IMPAIRED?YES :CORRECTIVE LENSES COGNITIVELY IMPAIRED?NO READINESS TO LEARN?YES LEARNING PREFERENCES?NO LEARNING CAPABILITIES PRESENT?YES EMOTIONAL BARRIERS?NO SPECIAL DEVICES?NO SURVEY TECHNICIAN NEEDED?NO PAIN CLINIC PFS, CLERGY, PUBLIC HEALTH REFERRALS PFS REFERRAL NEEDED?NO CLERGY REFERRAL NEEDED?NO PUBLIC HEALTH REFERRAL NEEDED?NO WAS THE PROVIDER NOTIFIED OF ANY PERTINENT INFO? N/A HAS THE PATIENT BEEN EDUCATED REGARDING HIS/HER PLAN OF CARE?YES HAS THE PATIENT BEEN EDUCATED REGARDING PAIN, THE RISK FOR PAIN, THE IMPORTANCE OF EFFECTIVE PAIN MANAGEMENT, AND THE PAIN ASSESSMENT PROCESS?YES LATEX QUESTIONNAIRE LATEX ALLERGY : HAVE YOU EVER DEVELOPED ANY TYPE OF REACTION AFTER HANDLING LATEX PRODUCTS SUCH RUBBER GLOVES, CONDOMS, DIAPHRAGMS, BALLOONS, SOCKS, OR UNDERWEAR?NO LATEX ALLERGY : HAVE YOU EVER DEVELOPED ANY TYPE OF REACTION DURING OR AFTER DENTAL APPOINTMENT, VAGINAL/RECTAL EXAMINATION, SURGICAL PROCEDURE, OR ANY OTHER EXPOSURE?NO LATEX RISK : HAVE YOU EVER HAD ANY DIFFICULTY BREATHING OR HIVES AFTER EATING OR HANDLING ANY FRUITS, OR VEGETABLES; SUCH KIWI, BANANAS, STONE FRUITS, OR CHESTNUTSNO LATEX RISK : DO YOU HAVE A PREVIOUS PERSONAL HISTORY OF MORE THAN NINE SURGERIES, SPINA BIFIDA, OR REPEATED CATHERIZATIONS? NO LATEX RISK : ARE YOU FREQUENTLY EXPOSED TO LATEX PRODUCTS IN YOUR OCCUPATION?NO DATE ASKED : 07/30/2018 CAFFEINE CAFFEINE USE?YES HOW OFTEN AND HOW MUCH? 6 CUPS COFFEE/DAY ADVANCE DIRECTIVE ADVANCE DIRECTIVE DISCUSSED WITH PATIENT:YES HCP - SAPNA MONROY [phone] [id number] TAOIST MARITAL STATUS: . 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 SEXUAL HX HAD SEX IN THE LAST 12 MONTHS (VAGINAL, ORAL, OR ANAL)?NO HAVE YOU EVER HAD AN STD?NO REVIEWED 01-13-18 REVIEWED WITH PATIENT 03/12/18 1057 JSREVIEWED WITH PATIENT 04/07/18 1101 07/30/18 REVIEWED WITH PT. AD. HOSPITALIZATION/MAJOR DIAGNOSTIC PROCEDURE SEES ABOVE REVIEW OF SYSTEMS REVIEWED BY: PROVIDER: . CONSTITUTIONAL: ANY CHANGE IN YOUR MEDICAL CONDITION? NO . CHILLS NO . FEVER NO . INFECTION: DO YOU HAVE NEW INFECTIONS? NO . DO YOU HAVE HISTORY OF MRSA? NO . MUSCULOSKELETAL: ANY NEW PATTERNS OF PAIN OR NUMBNESS? NO . GASTROENTEROLOGY: ANY NEW CHANGE IN BOWEL CONTROL? NO . GENITOURINARY: ANY NEW CHANGE IN BLADDER CONTROL? NO . IS THERE A CHANCE YOU COULD BE ? NO . HEMATOLOGY/LYMPH: DO YOU TAKE ANY BLOOD THINNERS? (FOR EXAMPLE- COUMADIN, PLAVIX, AGGRENOX, PLATEL, PRADAXA, OR XARELTO) NO . WHEN WAS YOUR LAST DOSE? DATE: TIME: . NEUROLOGY: HAVE YOU FALLEN IN THE PAST 12 MONTHS? NO . ANY NEW EXTREMITY NUMBNESS OR WEAKNESS? NO . CARDIOLOGY: DO YOU HAVE A PACEMAKER OR DEFIBRILLATOR? NO . RESPIRATORY: HAVE YOU BEEN SICK IN THE PAST WEEK? NO . FEVER NO . FLU LIKE SYMPTOMS? NO . COUGH NO . INTEGUMENTARY: DO YOU HAVE ANY RASHES OR OPEN SORES? NO . ALLERGIC/IMMUNO: ARE YOU ALLERGIC TO IV DYE? NO . ANY NEW ALLERGIES? NO . PSYCHIATRIC: DO YOU HAVE THOUGHTS OF HURTING YOURSELF OR SOMEONE ELSE? NO . ARE YOU ABUSED, NEGLECTED, OR IN AN UNSAFE ENVIRONMENT? NO . ENDOCRINOLOGY: ARE YOU DIABETIC? NO . OTHER: DO YOU NEED ANY PRESCRIPTIONS? NO . IF YES, PLEASE LIST: ____ . ANY NEW PROBLEMS WITH YOUR MEDICATIONS? NO . WHEN DID YOU LAST EAT? 10/07/18 1900 . WHEN DID YOU LAST DRINK? 10/08/18 0400 . WHAT DID YOU LAST DRINK? BLACK COFFEE . NAME OF PERSON DRIVING YOU HOME? SAPNA MONROY . DO YOU HAVE ANY OTHER QUESTIONS OR CONCERNS NO . VITAL SIGNS WT 162.8 LBS, HT 69 IN, BMI 24.04 INDEX, BP 139/95 MM HG, HR 78 /MIN, RR 18 /MIN, TEMP 98.3 F, OXYGEN SAT % 96%, NA INITIALS AW 1027, REVIEWED BY: CARIE. ASSESSMENTS INTERVERTEBRAL DISC DISORDER WITH RADICULOPATHY OF LUMBAR REGION - M51.16 (PRIMARY) PROCEDURES PRE PROCEDURE DIAGNOSIS LUMBAR DISC DISORDER WITH RADICULOPATHY POST PROCEDURE DIAGNOSIS LUMBAR DISC DISORDER WITH RADICULOPATHY PROCEDURE LUMBAR EPIDURAL STEROID INJECTION UNDER FLUOROSCOPIC GUIDANCE SURGEON DR. DONTA ISAAC LINUX VMWARE ADMINISTRATOR NONE ANESTHESIA LOCAL PRE PROCEDURE NOTE THE PATIENT HAS A HISTORY OF CHRONIC LOW BACK PAIN. I EVALUATED THE PATIENT AND REVIEWED THE CHART. I WENT OVER THE RISKS, ALTERNATIVES, AND BENEFITS ASSOCIATED WITH THIS PROCEDURE. THE PATIENT WOULD LIKE TO PROCEED AND GIVES CONSENT TO PERFORM THE PROCEDURE. THE PATIENT DENIES UNEXPLAINABLE WEIGHT LOSS, FEVER, CHILLS, OR NEW CHANGES IN URINARY OR BOWEL CONTROL. DESCRIPTION OF PROCEDURE THE PATIENT WAS BROUGHT TO THE PROCEDURE ROOM AND PLACED IN THE PRONE POSITION. THE LUMBOSACRAL AREA WAS CLEANED WITH BETADINE SOLUTION AND DRAPED ASEPTICALLY. THE PROCEDURE WAS DONE UNDER STERILE CONDITIONS. I CHECKED LATERALITY AND THE LEVEL WHERE THE PROCEDURE WAS GOING TO BE PERFORMED WITH THE PATIENT AND THE SUPPORTING STAFF AT THE MOMENT OF THE TIME OUT IN THE PROCEDURE ROOM. UNDER FLUOROSCOPIC GUIDANCE, THE TARGET POINT WAS SELECTED AT THE INTERLAMINAR LEVEL OF L4-L5. LIDOCAINE WAS USED TO NUMB THE SKIN AND THE SUBCUTANEOUS TISSUE BELOW IT. EPIDURAL TUOHY NEEDLE, 17-GAUGE, WAS ADVANCED UNDER FLUOROSCOPIC GUIDANCE AND FOLLOWING PATIENT FEEDBACK UNTIL THE EPIDURAL SPACE WAS REACHED, 7 CM DEEP INTO THE SKIN BY THE LOSS OF RESISTANCE TECHNIQUE. ISOVUE M DYE 30%, 0.25 ML, WAS INJECTED SHOWING ADEQUATE SPREAD OF THE DYE. THEN, A SOLUTION OF 3 ML OF NORMAL SALINE WITH DEPO-MEDROL 60 MG WAS INJECTED SLOWLY FOLLOWING PATIENT FEEDBACK. THERE WAS NO EVIDENCE OF BLOOD, PARESTHESIA OR CEREBROSPINAL FLUID DURING THE PROCEDURE. THE PATIENT WAS SENT TO THE RECOVERY ROOM. THE PATIENT WAS MOVING THE EXTREMITIES AND DOING WELL. THERE WAS NO COMPLICATION DURING THE PROCEDURE. FLUOROSCOPY TIME WAS 6 SECONDS. POST PROCEDURE NOTE THE PATIENT WILL BE SEEN IN A FOLLOW UP IN THE NEXT FEW WEEKS. INSTRUCTIONS WERE GIVEN, QUESTIONS WERE ANSWERED, AND THE PATIENT EXPRESSED UNDERSTANDING AND AGREES WITH THE PLAN. I, PARISH [employer], DOCUMENTED THE ABOVE INFORMATION ACTING A SCRIBE FOR DR. ISAAC. I HAVE REVIEWED THE ABOVE DOCUMENT, WRITTEN BY PARISH DEAL SCRIBKathy AND I VERIFY THAT IT IS ACCURATE. DIAGNOSTIC IMAGING [facility] FLUORO GUIDE SPINE INJECTION (PAIN)[id number] PROCEDURE CODES 65467 LUMBAR/SACRAL W/ IMAGING 6045F RADXPS IN END [id number] PXD DISPOSITION & COMMUNICATION FOLLOW UP 2 WEEKS ELECTRONICALLY SIGNED BY DONTA ISAAC MD, MD ON 10/15/2018 AT 04:22 PM EDT DISCLAIMER : THIS IS A VISIT SUMMARY EXTRACTED FROM THE [employer] CHART. IT IS NOT A COPY OF THE [employer] PROGRESS NOTE. MTDD
== END ==
LOC: M PAIN 10:15
PROVIDERS: ATTEND Anesthesiology
DX: M51.16 Intervertebral disc disorders with radiculopathy, lumbar region (principal); R91.1 Solitary pulmonary nodule; J44.9 Chronic obstructive pulmonary disease, unspecified; E55.9 Vitamin D deficiency, unspecified; F32.9 Major depressive disorder, single episode, unspecified; I10 Essential (primary) hypertension; M79.621 Pain in right upper arm; F17.210 Nicotine dependence, cigarettes, uncomplicated; Z88.0 Allergy status to penicillin; Z79.891 Long term (current) use of opiate analgesic; Z79.899 Other long term (current) drug therapy
CPT/HCPCS: 62323; J1030; Q9966

== ENCOUNTER → 2018-10-14 | Outpatient (CLI) | payer OTHER, BC ==
[~2018-10-14] MED LIST changes: -ISOVUE-M 200 41% 20ML VIAL (Q9966) As Ordered ONE; -LIDOCAINE 1% SDV INJ 30 ML VIAL As Ordered ONE; -diazePAM 5 MG TAB As Ordered ONE; -methylPREDNISolone SUSP 40 MG/ML (DEPO-medrol) VIAL (J1030) As Ordered ONE; -oxyCODONE 5MG TAB As Ordered ONE
--- NOTE | 2018-10-29 00:02 | ECWPNPC ---
PATIENT NAME: TAMARA MONROY : 1965 GENDER: MALE VISIT DATE: 10/14/2018 DISCHARGE DATE: 10/14/18 1242 VISIT LOCKED DATE TIME: PHYSICIAN: YAS ROBERTSON RESOURCE: YAS ROBERTSON REASON FOR APPOINTMENT 1. W/C POST TPI HISTORY OF PRESENT ILLNESS HISTORY OF PRESENT ILLNESS: PAIN THE PATIENT DESCRIBES THE PAIN... THE PATIENT DESCRIBES THE PAIN... PAIN THE PATIENT DESCRIBES THE PAIN... THE PATIENT DESCRIBES THE PAIN... FALL RISK SCREENING: SCREENING :NO FALLS REPORTED IN THE LAST YEAR :NO FALLS REPORTED IN THE LAST YEAR SCREENING :NO FALLS REPORTED IN THE LAST YEAR :NO FALLS REPORTED IN THE LAST YEAR FALL RISK SCREENING: HAVING SEVERE INCREASE IN TRAPEZIUS AND SHOULDER REGION PAIN OVER THE PAST 2 MONTHS..HAD TPI BILAT TRAPEZIUS AND SHOULDERS ON 12-02-17.REPORTING SEVERE RIGHT FOREARM CRAMPING PAIN AND POOR SLEEP.DESPITE LYRICA AND AMITRIPTYLINE HIS PAIN REMAINS UNCONTROLLED RESULTING IN POOR SLEEP AND INABILITY TO ATTEND TO ADL'S.HE IS UNABLE TO DRIVE AND RELIES ON HIS TO ASSIST WITH ADL'S DUE TO BILATERAL SHOULDER PAIN. RATING PAIN VAS 4-6/10.ALSO HAVING EPISODES OF EXCRUCIATING LEFT ARM SHOOTING PAIN WITH ROJM OF LEFT ARM COMPROMISED.DESPITE ESCALATING DOSE OF GABAPENTIN FOR NEUROPATHIC PAIN HIS PAIN PERSISTS. THIS IS A WORK RELATED INJURY WITH DOI 9-15-17.HE WAS LIFTING TIRES AND HEARD A SNAP AND HAD EXCRUIATING PAIN BILATERAL SHOULDERS R>L.HE IS STATUS POST BILAT SHOULDER SURGERY(MAR 11 2017-LEFT_ _-MAY 2018 RIGHT).HAS BEEN HAVING CONSTANT TREMORS IN HANDS AT REST AND WITH USE SINCE INJURY.DENIES FEVER OR ILLNESS.DENIES WEIGHT LOSS. SCREENING : NO FALLS IN THE PAST YEAR. CURRENT MEDICATIONS TAKING CYMBALTA 60 MG CAPSULE DELAYED RELEASE PARTICLES 1 CAPSULE ORALLY (WORKERS COMP CASE) TID UNKNOWN MULTIVITAMINS OTC TABLET 1 TABLET ORALLY ONCE A DAY UNKNOWN AMLODIPINE BESYLATE 5 MG TABLET 1 TABLET ORALLY ONCE A DAY UNKNOWN LOSARTAN POTASSIUM 25 MG TABLET 1 TABLET ORALLY ONCE A DAY UNKNOWN VITAMIN D (ERGOCALCIFEROL) 45193 UNIT CAPSULE 1 CAPSULE ORALLY ONCE A WEEK (MONDAYS) UNKNOWN AMITRIPTYLINE HCL 25 MG TABLET 3 ORALLY ONCE A DAY UNKNOWN LYRICA 300 MG CAPSULE 1 CAPSULE ORALLY BID MDD2 UNKNOWN SOMA 350 MG TABLET 1 TABLET ORALLY Q8H MDD3 UNKNOWN IBUPROFEN 800 MG TABLET 1 TABLET ORALLY NEEDED THREE TIMES A DAY UNKNOWN MORPHINE SULFATE ER 15 MG TABLET EXTENDED RELEASE 1 TO 2 DIRECTED ORALLY 1 IN AM,2 AT HS MDD3 UNKNOWN BACLOFEN 10 MG TABLET 1 TABLET WITH FOOD OR MILK ORALLY Q6H QID UNKNOWN PERCOCET 10-325 MG TABLET 1 TABLET NEEDED ORALLY EVERY 6 HRSMDD4 UNKNOWN GABAPENTIN 300 MG CAPSULE 1 CAPSULE ORALLY THREE TIMES A DAY MEDICATION LIST REVIEWED AND RECONCILED WITH THE PATIENT PAST MEDICAL HISTORY CHRONIC LOW BACK PAIN - DDD RIGHT ARM PAIN - BICEPS TENDON RUPTURE - [facility] - S/P SURGICAL REPAIR 2013 WITH RESIDUAL NUMBNESS AND PAIN - MACROCYTIC ANEMIA PULMONARY NODULES - CHEST CT 09/25/13 - MILD COPD, OLD GRANULOMATOUS DISEASE WITH CALCIFIED 11MM NODULE IN LLL, CALCIFIED LEFT HILAR NODES. 3MM NONCALCIFIED PULMONARY NODULE JUST ADJACENT TO AND CONTINUOS WITH OTHER PULMONARY NODULE. RECOMMEND F/U CT CHEST 09/25. - F/U CT DONE 08/03/15 - CHRONIC CHANGES, STABLE 3 MM NODULE C/W 09/25/13 - NO FURTHER IMAGING NEEDED VITAMIN D DEFICIENCY RIGHT TORN ROTATOR CUFF/ TORN LEFT ROTATOR CUFF DEPRESSION HYPERTENSION BL HAND TREMOR - PER IMAGING AT [facility]-SPINE X-RAYS SHOWED SEVERE DEGENERATIVE CHANGES, MRI SHOWED MILD DEGENERATIVE CHANGES. F/U MRI PENDING PER NEUROSURGERY (COMP CASE) PERMANENT NERVE DAMAGE TO BILATERAL ARMS COPD ALLERGIES PENICILLIN (FOR ALLERGIES USE ONLY): TOLD A CHILD TO NOT TAKE - ALLERGY SURGICAL HISTORY BICEP-RT SIDE 2014 ROTATOR CUFF TEAR REPAIR-LEFT 02/2017 COLONOSCOPY 2016 RIGHT ROTATOR CUFF REPAIR 06/2018 NECK PAIN FAMILY HISTORY FATHER: 55 YRS, LIVER CANCER, DIAGNOSED WITH OTHER MALIGNANT NEOPLASM OF UNSPECIFIED SITE, OTHER SPECIFIED CONDITIONS INFLUENCING HEALTH STATUS MOTHER: 72 YRS, BREAST CANCER, OTHER MALIGNANT NEOPLASM OF UNSPECIFIED SITE SIBLINGS: ALIVE SON(S): ALIVE, DM 2 BROTHER(S) , 2 SISTER(S) - HEALTHY. 2 SON(S) - HEALTHY. FATHER CIRRHOSIS OF LIVER\\NMOTHER HAD BREAST CANCER, BONE CANCER. SOCIAL HISTORY GENERAL: TOBACCO USE ARE YOU A:CURRENT SMOKER ARE YOU INTERESTED IN QUITTING?NOT READY TO QUIT COUNSELED THE PATIENT ON SMOKING EFFECTS, EDUCATION [id number]/16/2019 HOW MANY CIGARETTES A DAY DO YOU SMOKE?6-10 HOW OFTEN DO YOU SMOKE CIGARETTES?EVERY DAY PATIENT COUNSELED ON THE DANGERS OF TOBACCO USE AND URGED TO QUIT:10/14/2018 OTHERS AT HOME: SPOUSE. EDUCATION LEVEL OF EDUCATION:COLLEGE DIET: REGULAR. LANGUAGE LANGUAGES SPOKEN:MEXICAN DOMESTIC VIOLENCE DO YOU FEEL SAFE IN YOUR ENVIRONMENT?YES RECREATIONAL DRUG USE DRUG USE?NO EXERCISE: NO REGULAR EXERCISE. 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 N/A HAS THE PATIENT BEEN EDUCATED REGARDING HIS/HER PLAN OF CARE?YES HAS THE PATIENT BEEN EDUCATED REGARDING PAIN, THE RISK FOR PAIN, THE IMPORTANCE OF EFFECTIVE PAIN MANAGEMENT, AND THE PAIN ASSESSMENT PROCESS?YES LATEX QUESTIONNAIRE LATEX ALLERGY : HAVE YOU EVER DEVELOPED ANY TYPE OF REACTION AFTER HANDLING LATEX PRODUCTS SUCH RUBBER GLOVES, CONDOMS, DIAPHRAGMS, BALLOONS, SOCKS, OR UNDERWEAR?NO LATEX ALLERGY : HAVE YOU EVER DEVELOPED ANY TYPE OF REACTION DURING OR AFTER DENTAL APPOINTMENT, VAGINAL/RECTAL EXAMINATION, SURGICAL PROCEDURE, OR ANY OTHER EXPOSURE?NO DATE ASKED : 07/30/2018 LATEX RISK : HAVE YOU EVER HAD ANY DIFFICULTY BREATHING OR HIVES AFTER EATING OR HANDLING ANY FRUITS, OR VEGETABLES; SUCH KIWI, BANANAS, STONE FRUITS, OR CHESTNUTSNO LATEX RISK : DO YOU HAVE A PREVIOUS PERSONAL HISTORY OF MORE THAN NINE SURGERIES, SPINA BIFIDA, OR REPEATED CATHERIZATIONS? NO LATEX RISK : ARE YOU FREQUENTLY EXPOSED TO LATEX PRODUCTS IN YOUR OCCUPATION?NO CAFFEINE CAFFEINE USE?YES HOW OFTEN AND HOW MUCH? 6 CUPS COFFEE/DAY ADVANCE DIRECTIVE ADVANCE DIRECTIVE DISCUSSED WITH PATIENT:YES HCP - SAPNA MONROY [phone] JUDAISM [id number] ALEVISM MARITAL STATUS: . 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 SEXUAL HX HAD SEX IN THE LAST 12 MONTHS (VAGINAL, ORAL, OR ANAL)?NO HAVE YOU EVER HAD AN STD?NO REVIEWED 01-13-18 REVIEWED WITH PATIENT 03/12/18 1057 JSREVIEWED WITH PATIENT 04/07/18 1101 JS06/19/19 REVIEWED WITH PT. AD. HOSPITALIZATION/MAJOR DIAGNOSTIC PROCEDURE SEES ABOVE REVIEW OF SYSTEMS REVIEWED BY: PROVIDER: , YAS WHYTE . CONSTITUTIONAL: ANY CHANGE IN YOUR MEDICAL CONDITION? NO, NO . CHILLS NO, NO . FEVER NO, NO . INFECTION: DO YOU HAVE NEW INFECTIONS? NO, NO . DO YOU HAVE HISTORY OF MRSA? NO, NO . MUSCULOSKELETAL: ANY NEW PATTERNS OF PAIN OR NUMBNESS? NO, NO . GASTROENTEROLOGY: ANY NEW CHANGE IN BOWEL CONTROL? NO, NO . GENITOURINARY: ANY NEW CHANGE IN BLADDER CONTROL? NO, NO . IS THERE A CHANCE YOU COULD BE ? NO, NO . HEMATOLOGY/LYMPH: DO YOU TAKE ANY BLOOD THINNERS? (FOR EXAMPLE- COUMADIN, PLAVIX, AGGRENOX, PLATEL, PRADAXA, OR XARELTO) NO, NO . WHEN WAS YOUR LAST DOSE? DATE: TIME: , DATE: TIME: . NEUROLOGY: HAVE YOU FALLEN IN THE PAST 12 MONTHS? NO, NO . ANY NEW EXTREMITY NUMBNESS OR WEAKNESS? NO, NO . CARDIOLOGY: DO YOU HAVE A PACEMAKER OR DEFIBRILLATOR? NO, NO . RESPIRATORY: HAVE YOU BEEN SICK IN THE PAST WEEK? NO, NO . FEVER NO, NO . FLU LIKE SYMPTOMS? NO, NO . COUGH NO, NO . INTEGUMENTARY: DO YOU HAVE ANY RASHES OR OPEN SORES? NO, NO . ALLERGIC/IMMUNO: ARE YOU ALLERGIC TO IV DYE? NO, NO . ANY NEW ALLERGIES? NO, NO . PSYCHIATRIC: DO YOU HAVE THOUGHTS OF HURTING YOURSELF OR SOMEONE ELSE? NO, NO . ARE YOU ABUSED, NEGLECTED, OR IN AN UNSAFE ENVIRONMENT? NO, NO . ENDOCRINOLOGY: ARE YOU DIABETIC? NO, NO . OTHER: DO YOU NEED ANY PRESCRIPTIONS? NO, NO . IF YES, PLEASE LIST: ____, ____ . ANY NEW PROBLEMS WITH YOUR MEDICATIONS? NO, NO . WHEN DID YOU LAST EAT? ____, ____ . WHEN DID YOU LAST DRINK? ____, ____ . WHAT DID YOU LAST DRINK? ____, ____ . NAME OF PERSON DRIVING YOU HOME? ____, ____ . DO YOU HAVE ANY OTHER QUESTIONS OR CONCERNS NO, NO . VITAL SIGNS WT 162.8 LBS, HT 69 IN, BMI 24.04 INDEX, BP 153/93 MM HG, HR 77 /MIN, RR 18 /MIN, TEMP 97.6 F, OXYGEN SAT % 97%, SAFE IN ENV? (Y/N) YES, NA INITIALS IL 11:51, REVIEWED BY: KG. EXAMINATION SHOULDER / UPPER ARM: SHOULDER:BILATERAL. RANGE OF MOTION:LIMITED RANGE OF MOTION ,30 DEGREES ABDUCTION HAS TO STOP DUE TO PAIN. 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 PALPATION:TENDER BILAT.R>L TRIGGER POINTS OVER RHOMBOID ,MIDSCAPULAR SHOULDERS BILAT.. ASSESSMENTS MYALGIA, OTHER SITE - M79.18 (PRIMARY) PAIN IN RIGHT SHOULDER - M25.511 PAIN IN LEFT SHOULDER - M25.512 TREATMENT MYALGIA, OTHER SITE NOTES: TPI BILAT TRAPEZIUS/SHOULDERS W/C. PROCEDURES PN WORKMANS' COMP OPINION IN YOUR OPINION, WAS THE INCIDENT THAT THE PATIENT DESCRIBED THE COMPETENT MEDICAL CAUSE OF THIS INJURY/ILLNESS? YES ARE THE PATIENT'S COMPLAINTS CONSISTENT WITH HIS/HER HISTORY OF THE INJURY/ILLNESS? YES IS THE PATIENT'S HISTORY OF THE INJURY/ILLNESS CONSISTENT WITH YOUR OBJECTIVE FINDING? YES WHAT IS THE PERCENTAGE OF TEMPORARY IMPAIRMENT? MODERATE TO MARKED = 66.7% IS THE PATIENT WORKING? NO DOCTOR ON SITE: DONTA QURESHI MD DISPOSITION & COMMUNICATION FOLLOW UP POST (REASON: TPI BILAT TRAPEZIUS/SHOULDERS W/C) ELECTRONICALLY SIGNED BY PATO DE LA CRUZ ON 10/28/2018 AT 03:44 PM EDT DISCLAIMER : THIS IS A VISIT SUMMARY EXTRACTED FROM THE [employer] CHART. IT IS NOT A COPY OF THE [employer] PROGRESS NOTE. YULIET
== END ==
LOC: M PAIN 11:15
PROVIDERS: ATTEND Nurse Practitioner Family
DX: M79.18 Myalgia, other site (principal); M25.511 Pain in right shoulder; M25.512 Pain in left shoulder; Z86.59 Personal history of other mental and behavioral disorders; I10 Essential (primary) hypertension; J44.9 Chronic obstructive pulmonary disease, unspecified; F17.210 Nicotine dependence, cigarettes, uncomplicated; Z88.0 Allergy status to penicillin; Z79.899 Other long term (current) drug therapy

== ENCOUNTER → 2018-10-29 | Outpatient (CLI) | payer BC | LOC: M PAIN 10:00 | PROVIDERS: ATTEND Nurse Practitioner Family | DX: M51.17 Intervertebral disc disorders with radiculopathy, lumbosacral region (principal); E55.9 Vitamin D deficiency, unspecified; J44.9 Chronic obstructive pulmonary disease, unspecified; Z86.59 Personal history of other mental and behavioral disorders; I10 Essential (primary) hypertension; F17.210 Nicotine dependence, cigarettes, uncomplicated; Z88.0 Allergy status to penicillin; Z79.891 Long term (current) use of opiate analgesic; Z79.899 Other long term (current) drug therapy ==

== ENCOUNTER → 2018-11-12 | Outpatient (CLI) | payer BC ==
[~2018-11-12] MED LIST changes: +ISOVUE-M 300 61% 15ML VIAL (Q9967) As Ordered ONE; +LIDOCAINE 1% SDV INJ 30 ML VIAL As Ordered ONE; +diazePAM 5 MG TAB As Ordered ONE; +methylPREDNISolone SUSP 40 MG/ML (DEPO-medrol) VIAL (J1030) As Ordered ONE; +oxyCODONE 5MG TAB As Ordered ONE
--- NOTE | 2018-11-12 17:01 | REP ---
C-ARM VIEWS LUMBAR SPINE: Clinical history: Pain. Three C-Arm views lumbar spine region performed during injection by Dr. Bates. Needle is seen at the L4-5 level. A small amount of contrast was injected. 7 seconds fluoroscopy time utilized. Electronically Signed by Scott Cornejo MD 11/13/2018 05:39 P
== END ==
LOC: M PAIN 11:30
PROVIDERS: ATTEND Anesthesiology
DX: M51.16 Intervertebral disc disorders with radiculopathy, lumbar region (principal); R91.1 Solitary pulmonary nodule; D53.9 Nutritional anemia, unspecified; E55.9 Vitamin D deficiency, unspecified; F32.9 Major depressive disorder, single episode, unspecified; I10 Essential (primary) hypertension; J44.9 Chronic obstructive pulmonary disease, unspecified; R25.1 Tremor, unspecified; F17.210 Nicotine dependence, cigarettes, uncomplicated; Z79.891 Long term (current) use of opiate analgesic; Z79.899 Other long term (current) drug therapy
CPT/HCPCS: 62323; J1030; Q9967

== ENCOUNTER → 2018-11-27 | Outpatient (CLI) | payer BC ==
[~2018-11-27] MED LIST changes: -ISOVUE-M 300 61% 15ML VIAL (Q9967) As Ordered ONE; -LIDOCAINE 1% SDV INJ 30 ML VIAL As Ordered ONE; -diazePAM 5 MG TAB As Ordered ONE; -methylPREDNISolone SUSP 40 MG/ML (DEPO-medrol) VIAL (J1030) As Ordered ONE; -oxyCODONE 5MG TAB As Ordered ONE
--- NOTE | 2018-12-02 01:20 | ECWPNPC ---
PATIENT NAME: TAMARA MONROY : 1965 GENDER: MALE VISIT DATE: 11/27/2018 DISCHARGE DATE: 11/27/18 1120 VISIT LOCKED DATE TIME: PHYSICIAN: YAS ROBERTSON RESOURCE: YAS ROBERTSON REASON FOR APPOINTMENT 1. NON COMP POST PROC HISTORY OF PRESENT ILLNESS HISTORY OF PRESENT ILLNESS: HERE FOR POST PROCEDURE F/U.HAD LEFT L4/5 LESI LEFT W CATH. ON 11/12/18.REPORTING SIGNIFICANT REDUCTION IN LBP AND LEFT LEG PAIN THAT CONTINUES TODAY.PATIENT REPORTS IMPROVED ACTIVITY TOLERANCE SINCE PROCEDURE.RATING PAIN VAS 4/10. PAIN THE PATIENT DESCRIBES THE PAIN... FALL RISK SCREENING: SCREENING :NO FALLS REPORTED IN THE LAST YEAR CURRENT MEDICATIONS TAKING CYMBALTA 60 MG CAPSULE DELAYED RELEASE PARTICLES 1 CAPSULE ORALLY (WORKERS COMP CASE) TID TAKING IBUPROFEN 800 MG TABLET 1 TABLET ORALLY NEEDED THREE TIMES A DAY TAKING MULTIVITAMINS OTC TABLET 1 TABLET ORALLY ONCE A DAY TAKING AMLODIPINE BESYLATE 5 MG TABLET 1 TABLET ORALLY ONCE A DAY TAKING VITAMIN D (ERGOCALCIFEROL) 12540 UNIT CAPSULE 1 CAPSULE ORALLY ONCE A WEEK (MONDAYS) TAKING GABAPENTIN 300 MG CAPSULE 1 CAPSULE ORALLY THREE TIMES A DAY TAKING BACLOFEN 20 MG TABLET 1 TABLET WITH FOOD OR MILK ORALLY Q6H QID TAKING SOMA 350 MG TABLET 1 TABLET ORALLY Q8H MDD3 TAKING MORPHINE SULFATE ER 15 MG TABLET EXTENDED RELEASE 1 TO 2 DIRECTED ORALLY 1 IN AM,2 AT HS MDD3 TAKING AMITRIPTYLINE HCL 25 MG TABLET 3 ORALLY ONCE A DAY TAKING LOSARTAN POTASSIUM 25 MG TABLET 1 TABLET ORALLY ONCE A DAY TAKING LYRICA 300 MG CAPSULE 1 CAPSULE ORALLY BID MDD2 TAKING PERCOCET 10-325 MG TABLET 1 TABLET NEEDED ORALLY EVERY 6 HRSMDD4 MEDICATION LIST REVIEWED AND RECONCILED WITH THE PATIENT PAST MEDICAL HISTORY CHRONIC LOW BACK PAIN - DDD RIGHT ARM PAIN - BICEPS TENDON RUPTURE - [facility] - S/P SURGICAL REPAIR 2013 WITH RESIDUAL NUMBNESS AND PAIN - MACROCYTIC ANEMIA PULMONARY NODULES - CHEST CT 09/25/13 - MILD COPD, OLD GRANULOMATOUS DISEASE WITH CALCIFIED 11MM NODULE IN LLL, CALCIFIED LEFT HILAR NODES. 3MM NONCALCIFIED PULMONARY NODULE JUST ADJACENT TO AND CONTINUOS WITH OTHER PULMONARY NODULE. RECOMMEND F/U CT CHEST 09/25. - F/U CT DONE 08/03/15 - CHRONIC CHANGES, STABLE 3 MM NODULE C/W 09/25/13 - NO FURTHER IMAGING NEEDED VITAMIN D DEFICIENCY RIGHT TORN ROTATOR CUFF/ TORN LEFT ROTATOR CUFF DEPRESSION HYPERTENSION BL HAND TREMOR - PER IMAGING AT [facility] C-SPINE X-RAYS SHOWED SEVERE DEGENERATIVE CHANGES, MRI SHOWED MILD DEGENERATIVE CHANGES. F/U MRI PENDING PER NEUROSURGERY (COMP CASE) PERMANENT NERVE DAMAGE TO BILATERAL ARMS COPD ALLERGIES PENICILLIN (FOR ALLERGIES USE ONLY): TOLD A CHILD TO NOT TAKE - ALLERGY SURGICAL HISTORY BICEP-RT SIDE 2014 ROTATOR CUFF TEAR REPAIR-LEFT 02/2017 COLONOSCOPY 2016 RIGHT ROTATOR CUFF REPAIR 06/2018 NECK PAIN FAMILY HISTORY FATHER: 55 YRS, LIVER CANCER, DIAGNOSED WITH OTHER MALIGNANT NEOPLASM OF UNSPECIFIED SITE, OTHER SPECIFIED CONDITIONS INFLUENCING HEALTH STATUS MOTHER: 72 YRS, BREAST CANCER, OTHER MALIGNANT NEOPLASM OF UNSPECIFIED SITE SIBLINGS: ALIVE SON(S): ALIVE, DM 2 BROTHER(S) , 2 SISTER(S) - HEALTHY. 2 SON(S) - HEALTHY. FATHER CIRRHOSIS OF LIVER\\NMOTHER HAD BREAST CANCER, BONE CANCER. SOCIAL HISTORY GENERAL: TOBACCO USE ARE YOU A:CURRENT SMOKER ARE YOU INTERESTED IN QUITTING?NOT READY TO QUIT COUNSELED THE PATIENT ON SMOKING EFFECTS, EDUCATION [id number]/02/2019 HOW MANY CIGARETTES A DAY DO YOU SMOKE?6-10 HOW OFTEN DO YOU SMOKE CIGARETTES?EVERY DAY PATIENT COUNSELED ON THE DANGERS OF TOBACCO USE AND URGED TO QUIT:11/27/2018 OTHERS AT HOME: SPOUSE. EDUCATION LEVEL OF EDUCATION:COLLEGE DIET: REGULAR. LANGUAGE LANGUAGES SPOKEN:MALDIVIAN DOMESTIC VIOLENCE DO YOU FEEL SAFE IN YOUR ENVIRONMENT?YES RECREATIONAL DRUG USE DRUG USE?NO EXERCISE: NO REGULAR EXERCISE. LEARNING BARRIERS / SPECIAL NEEDS CHANGE FROM LAST VISIT?NO BARRIERS TO LEARNING?NO HEARING IMPAIRED?NO VISION IMPAIRED?YES COGNITIVELY IMPAIRED?NO :CORRECTIVE LENSES READINESS TO LEARN?YES LEARNING PREFERENCES?NO LEARNING CAPABILITIES PRESENT?YES EMOTIONAL BARRIERS?NO SPECIAL DEVICES?NO MOLD PRESSER NEEDED?NO PAIN CLINIC PFS, CLERGY, PUBLIC HEALTH REFERRALS PFS REFERRAL NEEDED?NO CLERGY REFERRAL NEEDED?NO PUBLIC HEALTH REFERRAL NEEDED?NO WAS THE PROVIDER NOTIFIED OF ANY PERTINENT INFO? N/A HAS THE PATIENT BEEN EDUCATED REGARDING HIS/HER PLAN OF CARE?YES HAS THE PATIENT BEEN EDUCATED REGARDING PAIN, THE RISK FOR PAIN, THE IMPORTANCE OF EFFECTIVE PAIN MANAGEMENT, AND THE PAIN ASSESSMENT PROCESS?YES LATEX QUESTIONNAIRE LATEX ALLERGY : HAVE YOU EVER DEVELOPED ANY TYPE OF REACTION AFTER HANDLING LATEX PRODUCTS SUCH RUBBER GLOVES, CONDOMS, DIAPHRAGMS, BALLOONS, SOCKS, OR UNDERWEAR?NO LATEX ALLERGY : HAVE YOU EVER DEVELOPED ANY TYPE OF REACTION DURING OR AFTER DENTAL APPOINTMENT, VAGINAL/RECTAL EXAMINATION, SURGICAL PROCEDURE, OR ANY OTHER EXPOSURE?NO DATE ASKED : 07/30/2018 LATEX RISK : HAVE YOU EVER HAD ANY DIFFICULTY BREATHING OR HIVES AFTER EATING OR HANDLING ANY FRUITS, OR VEGETABLES; SUCH KIWI, BANANAS, STONE FRUITS, OR CHESTNUTSNO LATEX RISK : DO YOU HAVE A PREVIOUS PERSONAL HISTORY OF MORE THAN NINE SURGERIES, SPINA BIFIDA, OR REPEATED CATHERIZATIONS? NO LATEX RISK : ARE YOU FREQUENTLY EXPOSED TO LATEX PRODUCTS IN YOUR OCCUPATION?NO CAFFEINE CAFFEINE USE?YES HOW OFTEN AND HOW MUCH? 6 CUPS COFFEE/DAY ADVANCE DIRECTIVE ADVANCE DIRECTIVE DISCUSSED WITH PATIENT:YES HCP - SAPNA MONROY [phone] HOLINESS [id number] ISLAM MARITAL STATUS: . 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 SEXUAL HX HAD SEX IN THE LAST 12 MONTHS (VAGINAL, ORAL, OR ANAL)?NO HAVE YOU EVER HAD AN STD?NO REVIEWED NL 01-13-18 REVIEWED WITH PATIENT 03/12/18 1057 JSREVIEWED WITH PATIENT 04/07/18 1101 JS07/30/18 REVIEWED WITH PT. ADREVIEWED WITH PT 10/29/18 1015 BVREVIEWED WITH PATIENT 11/12/18 LAS REVIEWED WITH PATIENT 11/27/18 1024 NLJ. HOSPITALIZATION/MAJOR DIAGNOSTIC PROCEDURE SEES ABOVE REVIEW OF SYSTEMS REVIEWED BY: PROVIDER: YAS WHYTE . CONSTITUTIONAL: ANY CHANGE IN YOUR MEDICAL CONDITION? NO . CHILLS NO . FEVER NO . INFECTION: DO YOU HAVE NEW INFECTIONS? NO . DO YOU HAVE HISTORY OF MRSA? NO . MUSCULOSKELETAL: ANY NEW PATTERNS OF PAIN OR NUMBNESS? 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 GASTROENTEROLOGY: ANY NEW CHANGE IN BOWEL CONTROL? NO . GENITOURINARY: ANY NEW CHANGE IN BLADDER CONTROL? NO . IS THERE A CHANCE YOU COULD BE ? NO . HEMATOLOGY/LYMPH: DO YOU TAKE ANY BLOOD THINNERS? (FOR EXAMPLE- COUMADIN, PLAVIX, AGGRENOX, PLATEL, PRADAXA, OR XARELTO) NO . WHEN WAS YOUR LAST DOSE? DATE: TIME: . NEUROLOGY: HAVE YOU FALLEN IN THE PAST 12 MONTHS? NO . ANY NEW EXTREMITY NUMBNESS OR WEAKNESS? NO . CARDIOLOGY: DO YOU HAVE A PACEMAKER OR DEFIBRILLATOR? NO . RESPIRATORY: HAVE YOU BEEN SICK IN THE PAST WEEK? NO . FEVER NO . FLU LIKE SYMPTOMS? NO . COUGH NO . INTEGUMENTARY: DO YOU HAVE ANY RASHES OR OPEN SORES? NO . ALLERGIC/IMMUNO: ARE YOU ALLERGIC TO IV DYE? NO . ANY NEW ALLERGIES? NO . PSYCHIATRIC: DO YOU HAVE THOUGHTS OF HURTING YOURSELF OR SOMEONE ELSE? NO . ARE YOU ABUSED, NEGLECTED, OR IN AN UNSAFE ENVIRONMENT? NO . ENDOCRINOLOGY: ARE YOU DIABETIC? NO . OTHER: DO YOU NEED ANY PRESCRIPTIONS? YES- SOMA . IF YES, PLEASE LIST: ____SOMA . ANY NEW PROBLEMS WITH YOUR MEDICATIONS? NO . WHEN DID YOU LAST EAT? ____ . WHEN DID YOU LAST DRINK? ____ . WHAT DID YOU LAST DRINK? ____ . NAME OF PERSON DRIVING YOU HOME? ____ . DO YOU HAVE ANY OTHER QUESTIONS OR CONCERNS NO . VITAL SIGNS WT 160.6 LBS, HT 69 IN, BMI 23.71 INDEX, BP 140/86 MANUAL BP, HR 73 /MIN, RR 18 /MIN, TEMP 97.3 F, OXYGEN SAT % 98%, SAFE IN ENV? (Y/N) YES, NA INITIALS AW 1035, REVIEWED BY: RUDDYTHIJoy RIDING DOUBLE TOOK PATIENT'S BP MANNUALLY 11/27/18 RUDDY. EXAMINATION GENERAL EXAMINATION: GENERALAWAKE,ALERT ,PLEAASANT . PSYCHAFFECT NORMAL . LUNGS:LUNG SHI ARE CLEAR TO AUSCULTATION BILATERALLY. GOOD MOVEMENT OF AIR . HEART:S1, S2 IN A REGULAR RATE AND RHYTHM. NO SIGNIFICANT MURMURS, RUBS OR GALLOPS NOTED . ASSESSMENTS INTERVERTEBRAL DISC DISORDERS WITH RADICULOPATHY, LUMBOSACRAL REGION - M51.17 (PRIMARY) TREATMENT INTERVERTEBRAL DISC DISORDERS WITH RADICULOPATHY, LUMBOSACRAL REGION REFILL SOMA TABLET, 350 MG, 1 TABLET, ORALLY, Q8H MDD3, 30 DAY(S), 90, REFILLS 5 NOTES: ISTOP REGISTRY REVIEWED AND DEMONSTRATES COMPLLIANCE. BRINGS IN MEDICATIONS WHICH IS APPROPRIATE FOR WHAT WAS DISPENSED. RECENT URINE TOXICOLOGY REVIEWED. NO UNAUTHORIZED MEDICATIONS. NO ILLICIT SUBSTANCES AND PRESCRIBED MEDICATIONS WERE PRESENT. . PROCEDURE CODES FA211 ESTABILISHED PATIENT [facility] CHARGE DISPOSITION & COMMUNICATION FOLLOW UP 3 MONTHS (REASON: LOW BACK/MED MGMNT) ELECTRONICALLY SIGNED BY PATO DE LA CRUZ ON 12/01/2018 AT 08:57 AM EDT DISCLAIMER : THIS IS A VISIT SUMMARY EXTRACTED FROM THE [employer] CHART. IT IS NOT A COPY OF THE [employer] PROGRESS NOTE. YULIET
== END ==
LOC: M PAIN 10:15
PROVIDERS: ATTEND Nurse Practitioner Family
DX: M51.17 Intervertebral disc disorders with radiculopathy, lumbosacral region (principal); E55.9 Vitamin D deficiency, unspecified; Z86.59 Personal history of other mental and behavioral disorders; I10 Essential (primary) hypertension; J44.9 Chronic obstructive pulmonary disease, unspecified; F17.210 Nicotine dependence, cigarettes, uncomplicated; Z88.0 Allergy status to penicillin; Z79.891 Long term (current) use of opiate analgesic; Z79.899 Other long term (current) drug therapy

== ENCOUNTER → 2018-12-05 | Outpatient (CLI) | payer OTHER ==
[~2018-12-05] MED LIST changes: +BUPIVACAINE HCL 0.25% 10 ML VIAL As Ordered ONE; +BUPIVACAINE HCL 0.25% 30 ML VIAL As Ordered ONE; +TRIAMCINOLONE ACETONIDE SUSP 40 MG/ML VIAL (J3301) As Ordered ONE; +diazePAM 5 MG TAB As Ordered ONE; +oxyCODONE 5MG TAB As Ordered ONE
--- NOTE | 2018-12-16 01:52 | ECWPNPC ---
PATIENT NAME: TAMARA MONROY : 1965 GENDER: MALE VISIT DATE: 12/05/2018 DISCHARGE DATE: 12/05/18 1139 VISIT LOCKED DATE TIME: PHYSICIAN: DONTA ISAAC MD RESOURCE: DONTA ISAAC MD REASON FOR APPOINTMENT 1. W/C TPI BILAT TRAPEZIUS/SHOULDERS HISTORY OF PRESENT ILLNESS HISTORY OF PRESENT ILLNESS: PAIN THE PATIENT DESCRIBES THE PAIN... FALL RISK SCREENING: SCREENING :NO FALLS REPORTED IN THE LAST YEAR CURRENT MEDICATIONS TAKING CYMBALTA 60 MG CAPSULE DELAYED RELEASE PARTICLES 1 CAPSULE ORALLY (WORKERS COMP CASE) TID, NOTES: 0600 TAKING IBUPROFEN 800 MG TABLET 1 TABLET ORALLY NEEDED THREE TIMES A DAY, NOTES: 0600 TAKING MULTIVITAMINS OTC TABLET 1 TABLET ORALLY ONCE A DAY, NOTES: 0600 TAKING AMLODIPINE BESYLATE 5 MG TABLET 1 TABLET ORALLY ONCE A DAY, NOTES: 0600 TAKING VITAMIN D (ERGOCALCIFEROL) 99743 UNIT CAPSULE 1 CAPSULE ORALLY ONCE A WEEK (MONDAYS), NOTES: 0600 TAKING GABAPENTIN 300 MG CAPSULE 1 CAPSULE ORALLY THREE TIMES A DAY, NOTES: 0600 TAKING BACLOFEN 20 MG TABLET 1 TABLET WITH FOOD OR MILK ORALLY Q6H QID, NOTES: 0600 TAKING MORPHINE SULFATE ER 15 MG TABLET EXTENDED RELEASE 1 TO 2 DIRECTED ORALLY 1 IN AM,2 AT HS MDD3, NOTES: 12/04/18@2099 TAKING AMITRIPTYLINE HCL 25 MG TABLET 3 ORALLY ONCE A DAY, NOTES: 12/04/18 TAKING LOSARTAN POTASSIUM 25 MG TABLET 1 TABLET ORALLY ONCE A DAY, NOTES: 0600 TAKING LYRICA 300 MG CAPSULE 1 CAPSULE ORALLY BID MDD2, NOTES: 0600 TAKING PERCOCET 10-325 MG TABLET 1 TABLET NEEDED ORALLY EVERY 6 HRSMDD4, NOTES: 12/04/18@2099 TAKING SOMA 350 MG TABLET 1 TABLET ORALLY Q8H MDD3, NOTES: 12/04/18 MEDICATION LIST REVIEWED AND RECONCILED WITH THE PATIENT PAST MEDICAL HISTORY CHRONIC LOW BACK PAIN - DDD RIGHT ARM PAIN - BICEPS TENDON RUPTURE - [facility] - S/P SURGICAL REPAIR 2013 WITH RESIDUAL NUMBNESS AND PAIN - MACROCYTIC ANEMIA PULMONARY NODULES - CHEST CT 09/25/13 - MILD COPD, OLD GRANULOMATOUS DISEASE WITH CALCIFIED 11MM NODULE IN LLL, CALCIFIED LEFT HILAR NODES. 3MM NONCALCIFIED PULMONARY NODULE JUST ADJACENT TO AND CONTINUOS WITH OTHER PULMONARY NODULE. RECOMMEND F/U CT CHEST 09/25. - F/U CT DONE 08/03/15 - CHRONIC CHANGES, STABLE 3 MM NODULE C/W 09/25/13 - NO FURTHER IMAGING NEEDED VITAMIN D DEFICIENCY RIGHT TORN ROTATOR CUFF/ TORN LEFT ROTATOR CUFF DEPRESSION HYPERTENSION BL HAND TREMOR - PER IMAGING AT [facility] - C-SPINE X-RAYS SHOWED SEVERE DEGENERATIVE CHANGES, MRI SHOWED MILD DEGENERATIVE CHANGES. 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 2 SON(S) - HEALTHY. FATHER CIRRHOSIS OF LIVER\\NMOTHER HAD BREAST CANCER, BONE CANCER. SOCIAL HISTORY GENERAL: TOBACCO USE ARE YOU A:CURRENT SMOKER ARE YOU INTERESTED IN QUITTING?NOT READY TO QUIT COUNSELED THE PATIENT ON SMOKING EFFECTS, EDUCATION [id number]/25/2019 HOW MANY CIGARETTES A DAY DO YOU SMOKE?6-10 HOW OFTEN DO YOU SMOKE CIGARETTES?EVERY DAY PATIENT COUNSELED ON THE DANGERS OF TOBACCO USE AND URGED TO QUIT:12/05/2018 OTHERS AT HOME: SPOUSE. EDUCATION LEVEL OF EDUCATION:COLLEGE DIET: REGULAR. LANGUAGE LANGUAGES SPOKEN:LUX[place]BOURGISH DOMESTIC VIOLENCE DO YOU FEEL SAFE IN YOUR ENVIRONMENT?YES RECREATIONAL DRUG USE DRUG USE?NO EXERCISE: NO REGULAR EXERCISE. LEARNING BARRIERS / SPECIAL NEEDS CHANGE FROM LAST VISIT?NO BARRIERS TO LEARNING?NO HEARING IMPAIRED?NO VISION IMPAIRED?YES COGNITIVELY IMPAIRED?NO :CORRECTIVE LENSES READINESS TO LEARN?YES LEARNING PREFERENCES?NO LEARNING CAPABILITIES PRESENT?YES EMOTIONAL BARRIERS?NO SPECIAL DEVICES?NO OPERATIONS PLANT ATTENDANT NEEDED?NO PAIN CLINIC PFS, CLERGY, PUBLIC HEALTH REFERRALS PFS REFERRAL NEEDED?NO CLERGY REFERRAL NEEDED?NO PUBLIC HEALTH REFERRAL NEEDED?NO WAS THE PROVIDER NOTIFIED OF ANY PERTINENT INFO? N/A HAS THE PATIENT BEEN EDUCATED REGARDING HIS/HER PLAN OF CARE?YES HAS THE PATIENT BEEN EDUCATED REGARDING PAIN, THE RISK FOR PAIN, THE IMPORTANCE OF EFFECTIVE PAIN MANAGEMENT, AND THE PAIN ASSESSMENT PROCESS?YES LATEX QUESTIONNAIRE LATEX ALLERGY : HAVE YOU EVER DEVELOPED ANY TYPE OF REACTION AFTER HANDLING LATEX PRODUCTS SUCH RUBBER GLOVES, CONDOMS, DIAPHRAGMS, BALLOONS, SOCKS, OR UNDERWEAR?NO LATEX ALLERGY : HAVE YOU EVER DEVELOPED ANY TYPE OF REACTION DURING OR AFTER DENTAL APPOINTMENT, VAGINAL/RECTAL EXAMINATION, SURGICAL PROCEDURE, OR ANY OTHER EXPOSURE?NO DATE ASKED : 07/30/2018 LATEX RISK : HAVE YOU EVER HAD ANY DIFFICULTY BREATHING OR HIVES AFTER EATING OR HANDLING ANY FRUITS, OR VEGETABLES; SUCH KIWI, BANANAS, STONE FRUITS, OR CHESTNUTSNO LATEX RISK : DO YOU HAVE A PREVIOUS PERSONAL HISTORY OF MORE THAN NINE SURGERIES, SPINA BIFIDA, OR REPEATED CATHERIZATIONS? NO LATEX RISK : ARE YOU FREQUENTLY EXPOSED TO LATEX PRODUCTS IN YOUR OCCUPATION?NO CAFFEINE CAFFEINE USE?YES HOW OFTEN AND HOW MUCH? 6 CUPS COFFEE/DAY ADVANCE DIRECTIVE ADVANCE DIRECTIVE DISCUSSED WITH PATIENT:YES HCP - SAPNA MONROY [phone] UATSDIN [id number] ORIENTAL ORTHODOX MARITAL STATUS: . 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 SEXUAL HX HAD SEX IN THE LAST 12 MONTHS (VAGINAL, ORAL, OR ANAL)?NO HAVE YOU EVER HAD AN STD?NO REVIEWED NL 01-13-18 REVIEWED WITH PATIENT 03/12/18 1057 JSREVIEWED WITH PATIENT 04/07/18 1101 JS07/30/18 REVIEWED WITH PT. ADREVIEWED WITH PT 10/29/18 1015 BVREVIEWED WITH PATIENT 11/12/18 LAS REVIEWED WITH PATIENT 11/27/18 1024 NLJ. HOSPITALIZATION/MAJOR DIAGNOSTIC PROCEDURE SEES ABOVE REVIEW OF SYSTEMS REVIEWED BY: PROVIDER: . CONSTITUTIONAL: ANY CHANGE IN YOUR MEDICAL CONDITION? NO . CHILLS NO . FEVER NO . INFECTION: DO YOU HAVE NEW INFECTIONS? NO . DO YOU HAVE HISTORY OF MRSA? NO . MUSCULOSKELETAL: ANY NEW PATTERNS OF PAIN OR NUMBNESS? NO . GASTROENTEROLOGY: ANY NEW CHANGE IN BOWEL CONTROL? NO . GENITOURINARY: ANY NEW CHANGE IN BLADDER CONTROL? NO . IS THERE A CHANCE YOU COULD BE ? NO . HEMATOLOGY/LYMPH: DO YOU TAKE ANY BLOOD THINNERS? (FOR EXAMPLE- COUMADIN, PLAVIX, AGGRENOX, PLATEL, PRADAXA, OR XARELTO) NO . WHEN WAS YOUR LAST DOSE? DATE: TIME: . NEUROLOGY: HAVE YOU FALLEN IN THE PAST 12 MONTHS? NO . ANY NEW EXTREMITY NUMBNESS OR WEAKNESS? NO . CARDIOLOGY: DO YOU HAVE A PACEMAKER OR DEFIBRILLATOR? NO . RESPIRATORY: HAVE YOU BEEN SICK IN THE PAST WEEK? NO . FEVER NO . FLU LIKE SYMPTOMS? NO . COUGH NO . INTEGUMENTARY: DO YOU HAVE ANY RASHES OR OPEN SORES? NO . ALLERGIC/IMMUNO: ARE YOU ALLERGIC TO IV DYE? NO . ANY NEW ALLERGIES? NO . PSYCHIATRIC: DO YOU HAVE THOUGHTS OF HURTING YOURSELF OR SOMEONE ELSE? NO . ARE YOU ABUSED, NEGLECTED, OR IN AN UNSAFE ENVIRONMENT? NO . ENDOCRINOLOGY: ARE YOU DIABETIC? NO . OTHER: DO YOU NEED ANY PRESCRIPTIONS? NO . IF YES, PLEASE LIST: ____ . ANY NEW PROBLEMS WITH YOUR MEDICATIONS? NO . WHEN DID YOU LAST EAT? ____12/04/18 . WHEN DID YOU LAST DRINK? ____529 . WHAT DID YOU LAST DRINK? ____BLACK COFFEE . NAME OF PERSON DRIVING YOU HOME? ____SUE . DO YOU HAVE ANY OTHER QUESTIONS OR CONCERNS NO . VITAL SIGNS WT 160.6 LBS, HT 69 IN, BMI 23.71 INDEX, BP 141/81 MM HG, HR 78 /MIN, RR 18 /MIN, TEMP 97.4 F, OXYGEN SAT % 96%, SAFE IN ENV? (Y/N) YES, NA INITIALS NV 10:01, REVIEWED BY: JYOTI. ASSESSMENTS MYALGIA, OTHER SITE - M79.18 (PRIMARY) PROCEDURES PN WORKMANS' COMP OPINION IN YOUR OPINION, WAS THE INCIDENT THAT THE PATIENT DESCRIBED THE COMPETENT MEDICAL CAUSE OF THIS INJURY/ILLNESS? YES ARE THE PATIENT'S COMPLAINTS CONSISTENT WITH HIS/HER HISTORY OF THE INJURY/ILLNESS? YES IS THE PATIENT'S HISTORY OF THE INJURY/ILLNESS CONSISTENT WITH YOUR OBJECTIVE FINDING? YES WHAT IS THE PERCENTAGE OF TEMPORARY IMPAIRMENT? MARKED = 75% IS THE PATIENT WORKING? NO DOCTOR ON SITE: DONTA QURESHI MD PN TRIGGER POINT INJECTION WITH STEROIDS PRE PROCEDURE DIAGNOSIS 1. MYALGIA 2. PAIN AT BILATERAL SHOULDER AREA. POST PROCEDURE DIAGNOSIS 1. MYALGIA 2. PAIN AT BILATERAL SHOULDER AREA. PROCEDURE TRIGGER POINT INJECTION AT RIGHT AND LEFT SHOULDER AREA. SURGEON DR. DONTA ISAAC REGISTERED RADIOLOGIC TECHNOLOGIST NONE ANESTHESIA LOCAL PRE PROCEDURE NOTE THE PATIENT HAS A HISTORY OF CHRONIC PAIN AT THE RIGHT AND LEFT SHOULDER AREA. I EVALUATED THE PATIENT AND REVIEWED THE CHART. THERE IS EVIDENCE OF BANDS OF TISSUE WITH RESTRICTION OF MOVEMENT AND PRESENCE OF TRIGGER POINT AT THE AFFECTED AREA. I WENT OVER THE RISKS, ALTERNATIVES, AND BENEFITS ASSOCIATED WITH THIS PROCEDURE. THE PATIENT WOULD LIKE TO PROCEED AND GIVES CONSENT TO PERFORM THE PROCEDURE. THE PATIENT DENIES UNEXPLAINABLE WEIGHT LOSS, FEVER, CHILLS, OR NEW CHANGES IN URINARY OR BOWEL CONTROL DESCRIPTION OF PROCEDURE THE PATIENT WAS BROUGHT TO THE PROCEDURE ROOM AND PLACED IN THE SITTING POSITION. THE AREA WAS CLEANED WITH ALCOHOL. THE PROCEDURE WAS DONE USING ASEPTIC STERILE TECHNIQUE. I CHECKED LATERALITY AND THE LEVEL WHERE THE PROCEDURE WAS GOING TO BE PERFORMED WITH THE PATIENT AND THE SUPPORTING STAFF AT THE MOMENT OF THE TIME OUT IN THE PROCEDURE ROOM. USING A 25-GAUGE NEEDLE, TRIGGER POINTS WERE INJECTED AT THE RIGHT AND LEFT SHOULDER AREA WITH A TOTAL OF 40 ML OF BUPIVACAINE 0.25% AND KENALOG 40 MG. THERE WAS NO EVIDENCE OF BLOOD, PARESTHESIA OR CEREBROSPINAL FLUID DURING THE PROCEDURE. THE PATIENT WAS SENT TO THE RECOVERY ROOM. THE PATIENT WAS MOVING THE EXTREMITIES AND DOING WELL. THERE WAS NO COMPLICATION DURING THE PROCEDURE POST PROCEDURE NOTE THE PATIENT WILL BE SEEN IN A FOLLOW UP IN THE NEXT FEW WEEKS. INSTRUCTIONS WERE GIVEN, QUESTIONS WERE ANSWERED, AND THE PATIENT EXPRESSED UNDERSTANDING AND AGREES WITH THE PLAN. I, PARISH DEAL, DOCUMENTED THE ABOVE INFORMATION ACTING A SCRIBE FOR DR. ISAAC. I HAVE REVIEWED THE ABOVE DOCUMENT, WRITTEN BY PARISH DEVI AND I VERIFY THAT IT IS ACCURATE. PROCEDURE CODES 52977 INJ TRIGGER POINT 02/12 [facility] [place] COMMUNICATION FOLLOW UP 3 WEEKS ELECTRONICALLY SIGNED BY DONTA ISAAC MD, MD ON 12/15/2018 AT 12:20 PM EST DISCLAIMER : THIS IS A VISIT SUMMARY EXTRACTED FROM THE [employer] CHART. IT IS NOT A COPY OF THE [employer] PROGRESS NOTE. YULIET
== END ==
LOC: M PAIN 09:45
PROVIDERS: ATTEND Anesthesiology
DX: M79.18 Myalgia, other site (principal); M51.36 Other intervertebral disc degeneration, lumbar region; D50.9 Iron deficiency anemia, unspecified; R91.1 Solitary pulmonary nodule; J44.9 Chronic obstructive pulmonary disease, unspecified; E55.9 Vitamin D deficiency, unspecified; F32.9 Major depressive disorder, single episode, unspecified; I10 Essential (primary) hypertension; R25.1 Tremor, unspecified; F17.210 Nicotine dependence, cigarettes, uncomplicated; Z79.891 Long term (current) use of opiate analgesic; Z79.899 Other long term (current) drug therapy; Z88.0 Allergy status to penicillin
CPT/HCPCS: 20552; J3301

== ENCOUNTER → 2018-12-25 | Outpatient (CLI) | payer BC, OTHER ==
[~2018-12-25] MED LIST changes: -BUPIVACAINE HCL 0.25% 10 ML VIAL As Ordered ONE; -BUPIVACAINE HCL 0.25% 30 ML VIAL As Ordered ONE; -TRIAMCINOLONE ACETONIDE SUSP 40 MG/ML VIAL (J3301) As Ordered ONE; -diazePAM 5 MG TAB As Ordered ONE; -oxyCODONE 5MG TAB As Ordered ONE
--- NOTE | 2019-01-13 03:11 | ECWPNPC ---
PATIENT NAME: TAMARA MONROY : 1965 GENDER: MALE VISIT DATE: 12/25/2018 DISCHARGE DATE: 12/25/18 1459 VISIT LOCKED DATE TIME: PHYSICIAN: YAS ROBERTSON RESOURCE: YAS ROBERTSON REASON FOR APPOINTMENT 1. W/C POST TPI HISTORY OF PRESENT ILLNESS HISTORY OF PRESENT ILLNESS: PAIN THE PATIENT DESCRIBES THE PAIN... FALL RISK SCREENING: SCREENING :NO FALLS REPORTED IN THE LAST YEAR FALL RISK SCREENING: HERE FOR POST PROCEDURE F/U.HAD TPI BILAT TRAPEZIUS AND SHOULDERS ON 12-02-17.REPORTING SIGNIFICANT REDUCTION IN PAIN POST PROCEDURE. RATING PAIN VAS 4-6/10.ALSO HAVING EPISODES OF EXCRUCIATING LEFT ARM SHOOTING PAIN WITH ROJM OF LEFT ARM COMPROMISED.DESPITE ESCALATING DOSE OF GABAPENTIN FOR NEUROPATHIC PAIN HIS PAIN PERSISTS. THIS IS A WORK RELATED INJURY WITH DOI 10-26-16.HE WAS LIFTING TIRES AND HEARD A SNAP AND HAD EXCRUIATING PAIN BILATERAL SHOULDERS R>L.HE IS STATUS POST BILAT SHOULDER SURGERY(MAR 11 2017-LEFT_ _-MAY 2018 RIGHT).HAS BEEN HAVING CONSTANT TREMORS IN HANDS AT REST AND WITH USE SINCE INJURY.DENIES FEVER OR ILLNESS.DENIES WEIGHT LOSS. SCREENING : NO FALLS IN THE PAST YEAR. CURRENT MEDICATIONS TAKING IBUPROFEN 800 MG TABLET 1 TABLET ORALLY NEEDED THREE TIMES A DAY TAKING MULTIVITAMINS OTC TABLET 1 TABLET ORALLY ONCE A DAY TAKING VITAMIN D (ERGOCALCIFEROL) 03496 UNIT CAPSULE 1 CAPSULE ORALLY ONCE A WEEK (MONDAYS) TAKING GABAPENTIN 300 MG CAPSULE 1 CAPSULE ORALLY THREE TIMES A DAY TAKING BACLOFEN 20 MG TABLET 1 TABLET WITH FOOD OR MILK ORALLY Q6H QID TAKING AMITRIPTYLINE HCL 25 MG TABLET 3 ORALLY ONCE A DAY TAKING LYRICA 300 MG CAPSULE 1 CAPSULE ORALLY BID MDD2 TAKING PERCOCET 10-325 MG TABLET 1 TABLET NEEDED ORALLY EVERY 6 HRSMDD4 TAKING SOMA 350 MG TABLET 1 TABLET ORALLY Q8H MDD3 TAKING MORPHINE SULFATE ER 15 MG TABLET EXTENDED RELEASE 1 TO 2 DIRECTED ORALLY 1 IN AM,2 AT HS MDD3 TAKING CYMBALTA 30 MG CAPSULE DELAYED RELEASE PARTICLES 2 CAPSULES IN AM, 1 CAP IN PM ORALLY DIRECTED TAKING AMLODIPINE BESYLATE 5 MG TABLET 1 TABLET ORALLY ONCE A DAY TAKING LOSARTAN POTASSIUM 50 MG TABLET 1 TABLET ORALLY ONCE A DAY NOT-TAKING MORPHINE SULFATE ER 15 MG TABLET EXTENDED RELEASE 1 TO 2 DIRECTED ORALLY 1 IN AM,2 AT HS MDD3, NOTES: DUPLICATE MEDICATION LIST REVIEWED AND RECONCILED WITH THE PATIENT PAST MEDICAL HISTORY CHRONIC LOW BACK PAIN - DDD RIGHT ARM PAIN - BICEPS TENDON RUPTURE - [facility] - S/P SURGICAL REPAIR 2013 WITH RESIDUAL NUMBNESS AND PAIN - MACROCYTIC ANEMIA PULMONARY NODULES - CHEST CT 09/25/13 - MILD COPD, OLD GRANULOMATOUS DISEASE WITH CALCIFIED 11MM NODULE IN LLL, CALCIFIED LEFT HILAR NODES. 3MM NONCALCIFIED PULMONARY NODULE JUST ADJACENT TO AND CONTINUOS WITH OTHER PULMONARY NODULE. RECOMMEND F/U CT CHEST 09/25. - F/U CT DONE 08/03/15 - CHRONIC CHANGES, STABLE 3 MM NODULE C/W 09/25/13 - NO FURTHER IMAGING NEEDED VITAMIN D DEFICIENCY RIGHT TORN ROTATOR CUFF/ TORN LEFT ROTATOR CUFF DEPRESSION HYPERTENSION BL HAND TREMOR - PER IMAGING AT [facility] - C-SPINE X-RAYS SHOWED SEVERE DEGENERATIVE CHANGES, MRI SHOWED MILD DEGENERATIVE CHANGES. F/U MRI PENDING PER NEUROSURGERY (COMP CASE) PERMANENT NERVE DAMAGE TO BILATERAL ARMS COPD ALLERGIES PENICILLIN (FOR ALLERGIES USE ONLY): TOLD A CHILD TO NOT TAKE - ALLERGY SURGICAL HISTORY BICEP-RT SIDE 2015 ROTATOR CUFF TEAR REPAIR-LEFT 02/2017 COLONOSCOPY 2016 RIGHT ROTATOR CUFF REPAIR 06/2018 NECK PAIN FAMILY HISTORY FATHER: 55 YRS, LIVER CANCER, DIAGNOSED WITH OTHER MALIGNANT NEOPLASM OF UNSPECIFIED SITE, OTHER SPECIFIED CONDITIONS INFLUENCING HEALTH STATUS MOTHER: 72 YRS, BREAST CANCER, OTHER MALIGNANT NEOPLASM OF UNSPECIFIED SITE SIBLINGS: ALIVE SON(S): ALIVE, DM 2 BROTHER(S) , 2 SISTER(S) - HEALTHY. 2 SON(S) - HEALTHY. FATHER CIRRHOSIS OF LIVER\\NMOTHER HAD BREAST CANCER, BONE CANCER. SOCIAL HISTORY GENERAL: TOBACCO USE ARE YOU A:CURRENT SMOKER ARE YOU INTERESTED IN QUITTING?NOT READY TO QUIT COUNSELED THE PATIENT ON SMOKING EFFECTS, EDUCATION [id number]/14/2019 HOW MANY CIGARETTES A DAY DO YOU SMOKE?6-10 HOW OFTEN DO YOU SMOKE CIGARETTES?EVERY DAY PATIENT COUNSELED ON THE DANGERS OF TOBACCO USE AND URGED TO QUIT:12/25/2018 OTHERS AT HOME: SPOUSE. EDUCATION LEVEL OF EDUCATION:COLLEGE DIET: REGULAR. LANGUAGE LANGUAGES SPOKEN:ANGUILLAN DOMESTIC VIOLENCE DO YOU FEEL SAFE IN YOUR ENVIRONMENT?YES RECREATIONAL DRUG USE DRUG USE?NO EXERCISE: NO REGULAR EXERCISE. LEARNING BARRIERS / SPECIAL NEEDS CHANGE FROM LAST VISIT?NO BARRIERS TO LEARNING?NO HEARING IMPAIRED?NO VISION IMPAIRED?YES COGNITIVELY IMPAIRED?NO :CORRECTIVE LENSES READINESS TO LEARN?YES LEARNING PREFERENCES?NO LEARNING CAPABILITIES PRESENT?YES EMOTIONAL BARRIERS?NO SPECIAL DEVICES?NO [facility] ATTENDANT NEEDED?NO PAIN CLINIC PFS, CLERGY, PUBLIC HEALTH REFERRALS PFS REFERRAL NEEDED?NO CLERGY REFERRAL NEEDED?NO PUBLIC HEALTH REFERRAL NEEDED?NO WAS THE PROVIDER NOTIFIED OF ANY PERTINENT INFO? N/A HAS THE PATIENT BEEN EDUCATED REGARDING HIS/HER PLAN OF CARE?YES HAS THE PATIENT BEEN EDUCATED REGARDING PAIN, THE RISK FOR PAIN, THE IMPORTANCE OF EFFECTIVE PAIN MANAGEMENT, AND THE PAIN ASSESSMENT PROCESS?YES LATEX QUESTIONNAIRE LATEX ALLERGY : HAVE YOU EVER DEVELOPED ANY TYPE OF REACTION AFTER HANDLING LATEX PRODUCTS SUCH RUBBER GLOVES, CONDOMS, DIAPHRAGMS, BALLOONS, SOCKS, OR UNDERWEAR?NO LATEX ALLERGY : HAVE YOU EVER DEVELOPED ANY TYPE OF REACTION DURING OR AFTER DENTAL APPOINTMENT, VAGINAL/RECTAL EXAMINATION, SURGICAL PROCEDURE, OR ANY OTHER EXPOSURE?NO LATEX RISK : HAVE YOU EVER HAD ANY DIFFICULTY BREATHING OR HIVES AFTER EATING OR HANDLING ANY FRUITS, OR VEGETABLES; SUCH KIWI, BANANAS, STONE FRUITS, OR CHESTNUTSNO LATEX RISK : DO YOU HAVE A PREVIOUS PERSONAL HISTORY OF MORE THAN NINE SURGERIES, SPINA BIFIDA, OR REPEATED CATHERIZATIONS? NO LATEX RISK : ARE YOU FREQUENTLY EXPOSED TO LATEX PRODUCTS IN YOUR OCCUPATION?NO DATE ASKED : 07/30/2018 CAFFEINE CAFFEINE USE?YES HOW OFTEN AND HOW MUCH? 6 CUPS COFFEE/DAY ADVANCE DIRECTIVE ADVANCE DIRECTIVE DISCUSSED WITH PATIENT:YES HCP - SAPNA MONROY [phone] [facility] [id number] [facility] MARITAL STATUS: . 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 SEXUAL HX HAD SEX IN THE LAST 12 MONTHS (VAGINAL, ORAL, OR ANAL)?NO HAVE YOU EVER HAD AN STD?NO REVIEWED NL 01-13-18 REVIEWED WITH PATIENT 03/12/18 1057 JSREVIEWED WITH PATIENT 04/07/18 1101 JS07/30/18 REVIEWED WITH PT. ADREVIEWED WITH PT 10/29/18 1015 BVREVIEWED WITH PATIENT 11/12/18 LAS REVIEWED WITH PATIENT 11/27/18 1024 NLJREVIEWED WITH PATIENT 12/25/18 1419 JS. HOSPITALIZATION/MAJOR DIAGNOSTIC PROCEDURE SEES ABOVE REVIEW OF SYSTEMS REVIEWED BY: PROVIDER: YAS WHYTE . CONSTITUTIONAL: ANY CHANGE IN YOUR MEDICAL CONDITION? NO . CHILLS NO . FEVER NO . INFECTION: DO YOU HAVE NEW INFECTIONS? NO . DO YOU HAVE HISTORY OF MRSA? NO . MUSCULOSKELETAL: ANY NEW PATTERNS OF PAIN OR NUMBNESS? NO . GASTROENTEROLOGY: ANY NEW CHANGE IN BOWEL CONTROL? NO . GENITOURINARY: ANY NEW CHANGE IN BLADDER CONTROL? NO . IS THERE A CHANCE YOU COULD BE ? NO . HEMATOLOGY/LYMPH: DO YOU TAKE ANY BLOOD THINNERS? (FOR EXAMPLE- COUMADIN, PLAVIX, AGGRENOX, PLATEL, PRADAXA, OR XARELTO) NO . WHEN WAS YOUR LAST DOSE? DATE: TIME: . NEUROLOGY: HAVE YOU FALLEN IN THE PAST 12 MONTHS? NO . ANY NEW EXTREMITY NUMBNESS OR WEAKNESS? NO . CARDIOLOGY: DO YOU HAVE A PACEMAKER OR DEFIBRILLATOR? NO . RESPIRATORY: HAVE YOU BEEN SICK IN THE PAST WEEK? YES, STATES STOMACH VIRUS . FEVER NO . FLU LIKE SYMPTOMS? NO . COUGH NO . INTEGUMENTARY: DO YOU HAVE ANY RASHES OR OPEN SORES? NO . ALLERGIC/IMMUNO: ARE YOU ALLERGIC TO IV DYE? NO . ANY NEW ALLERGIES? NO . PSYCHIATRIC: DO YOU HAVE THOUGHTS OF HURTING YOURSELF OR SOMEONE ELSE? NO . ARE YOU ABUSED, NEGLECTED, OR IN AN UNSAFE ENVIRONMENT? NO . ENDOCRINOLOGY: ARE YOU DIABETIC? NO . OTHER: DO YOU NEED ANY PRESCRIPTIONS? YES . IF YES, PLEASE LIST: ____ROSALINO NG'S IN [place] . ANY NEW PROBLEMS WITH YOUR MEDICATIONS? NO . WHEN DID YOU LAST EAT? ____ . WHEN DID YOU LAST DRINK? ____ . WHAT DID YOU LAST DRINK? ____ . NAME OF PERSON DRIVING YOU HOME? ____ . DO YOU HAVE ANY OTHER QUESTIONS OR CONCERNS FLU VACCINE LAST WEEK . VITAL SIGNS WT 159.0 LBS, HT 69 IN, BMI 23.48 INDEX, BP 174/104 MM HG, REPEAT BP 160/100 MANUAL, HR 100 /MIN, RR 18 /MIN, TEMP 98.4 F, OXYGEN SAT % 96%, SAFE IN ENV? (Y/N) YES, NA INITIALS AW 1419, REVIEWED BY: NOEL12/25/18 DISCUSSED ELEVATED BP WITH PATIENT, STATES BP MEDICATION DOSE INCREASED LAST WEEK. WILL DISCUSS WITH PCP NEXT VISIT IF HIS BP CONTINUES TO BE ELEVATED. YAS ROBERTSON NOTIFIED. JS. EXAMINATION SHOULDER / UPPER ARM: SHOULDER:BILATERAL. RANGE OF MOTION:LIMITED RANGE OF MOTION ,30 DEGREES ABDUCTION HAS TO STOP DUE TO PAIN. STRENGTH:WEAK IT SUPPORT MANAGER STRENGTH R>L.MST WEAK R>L 3/5. PALPATION:TENDER BILAT.R>L TRIGGER POINTS OVER RHOMBOID ,MIDSCAPULAR SHOULDERS BILAT.. ASSESSMENTS PAIN IN RIGHT SHOULDER - M25.511 (PRIMARY) PAIN IN LEFT SHOULDER - M25.512 OTHER CHRONIC PAIN - G89.29 TREATMENT PAIN IN RIGHT SHOULDER CONTINUE AMITRIPTYLINE HCL TABLET, 25 MG, 3, ORALLY, ONCE A DAY CONTINUE LYRICA CAPSULE, 300 MG, 1 CAPSULE, ORALLY, BID MDD2 PROCEDURES PN WORKMANS' COMP OPINION IN YOUR OPINION, WAS THE INCIDENT THAT THE PATIENT DESCRIBED THE COMPETENT MEDICAL CAUSE OF THIS INJURY/ILLNESS? YES ARE THE PATIENT'S COMPLAINTS CONSISTENT WITH HIS/HER HISTORY OF THE INJURY/ILLNESS? YES IS THE PATIENT'S HISTORY OF THE INJURY/ILLNESS CONSISTENT WITH YOUR OBJECTIVE FINDING? YES WHAT IS THE PERCENTAGE OF TEMPORARY IMPAIRMENT? MODERATE TO MARKED = 66.7% IS THE PATIENT WORKING? NO DOCTOR ON SITE: DONTA QURESHI MD PROCEDURE CODES [id number] ESTABILISHED PATIENT [facility] FACILITY CHARGE DISPOSITION & COMMUNICATION FOLLOW UP 2 MONTHS (REASON: W/C SHOULDERS) ELECTRONICALLY SIGNED BY PATO DE LA CRUZ ON 01/12/2019 AT 04:13 PM EST DISCLAIMER : THIS IS A VISIT SUMMARY EXTRACTED FROM THE [employer] CHART. IT IS NOT A COPY OF THE [employer] PROGRESS NOTE. YULIET
== END ==
LOC: M PAIN 13:45
PROVIDERS: ATTEND Nurse Practitioner Family
DX: M25.511 Pain in right shoulder (principal); M25.512 Pain in left shoulder; G89.29 Other chronic pain; E55.9 Vitamin D deficiency, unspecified; Z86.59 Personal history of other mental and behavioral disorders; I10 Essential (primary) hypertension; J44.9 Chronic obstructive pulmonary disease, unspecified; F17.210 Nicotine dependence, cigarettes, uncomplicated; Z88.0 Allergy status to penicillin; Z79.891 Long term (current) use of opiate analgesic; Z79.899 Other long term (current) drug therapy

== ENCOUNTER → 2019-02-24 | Outpatient (CLI) | payer BC, OTHER ==
--- NOTE | 2019-03-04 05:16 | ECWPNPC ---
PATIENT NAME: TAMARA MONROY : 1965 GENDER: MALE VISIT DATE: 02/24/2019 DISCHARGE DATE: 02/24/19 1516 VISIT LOCKED DATE TIME: PHYSICIAN: YAS ROBERTSON RESOURCE: YAS ROBERTSON REASON FOR APPOINTMENT 1. W/C SHOULDERS HISTORY OF PRESENT ILLNESS HISTORY OF PRESENT ILLNESS: PAIN THE PATIENT DESCRIBES THE PAIN... FALL RISK SCREENING: SCREENING :NO FALLS REPORTED IN THE LAST YEAR FALL RISK SCREENING: HERE FOR POST PROCEDURE F/U.HAD TPI BILAT TRAPEZIUS AND SHOULDERS ON 12-02-17.REPORTING SIGNIFICANT REDUCTION IN PAIN POST PROCEDURE. OVER THE PAST MONTH, BILATERAL TRAPEZIUS AND SHOULDER PAIN HAS RETURNED. RATING PAIN VAS 4-6/10.ALSO HAVING EPISODES OF EXCRUCIATING LEFT ARM SHOOTING PAIN WITH ROJM OF LEFT ARM COMPROMISED.DESPITE ESCALATING DOSE OF GABAPENTIN FOR NEUROPATHIC PAIN HIS PAIN PERSISTS. THIS IS A WORK RELATED INJURY WITH DOI 9-15-17.HE WAS LIFTING TIRES AND HEARD A SNAP AND HAD EXCRUIATING PAIN BILATERAL SHOULDERS R>L.HE IS STATUS POST BILAT SHOULDER SURGERY(MAR 11 2017-LEFT_ _-MAY 2018 RIGHT).HAS BEEN HAVING CONSTANT TREMORS IN HANDS AT REST AND WITH USE SINCE INJURY.DENIES FEVER OR ILLNESS.DENIES WEIGHT LOSS. SCREENING : NO FALLS IN THE PAST YEAR. CURRENT MEDICATIONS TAKING MULTIVITAMINS OTC TABLET 1 TABLET ORALLY ONCE A DAY TAKING VITAMIN D (ERGOCALCIFEROL) 61067 UNIT CAPSULE 1 CAPSULE ORALLY ONCE A WEEK (MONDAYS) TAKING SOMA 350 MG TABLET 1 TABLET ORALLY Q8H MDD3 TAKING GABAPENTIN 300 MG CAPSULE 1 CAPSULE ORALLY THREE TIMES A DAY TAKING LOSARTAN POTASSIUM 50 MG TABLET 1 TABLET ORALLY ONCE A DAY TAKING AMLODIPINE BESYLATE 5 MG TABLET TAKE 1 TABLET DAILY TAKING CYMBALTA 30 MG CAPSULE DELAYED RELEASE PARTICLES 1 CAPSULE TWICE A DAY ORALLY 90 DAY(S) TAKING IBUPROFEN 800 MG TABLET 1 TABLET ORALLY NEEDED THREE TIMES A DAY TAKING BACLOFEN 20 MG TABLET 1 TABLET WITH FOOD OR MILK ORALLY Q6H QID TAKING MORPHINE SULFATE ER 15 MG TABLET EXTENDED RELEASE 1 TO 2 DIRECTED ORALLY 1 IN AM,2 AT HS MDD3 TAKING AMITRIPTYLINE HCL 25 MG TABLET 3 ORALLY ONCE A DAY TAKING PERCOCET 10-325 MG TABLET 1 TABLET NEEDED ORALLY EVERY 6 HRSMDD4 TAKING LYRICA 300 MG CAPSULE 1 CAPSULE ORALLY BID MDD2 MEDICATION LIST REVIEWED AND RECONCILED WITH THE PATIENT PAST MEDICAL HISTORY CHRONIC LOW BACK PAIN - DDD RIGHT ARM PAIN - BICEPS TENDON RUPTURE - [facility] - S/P SURGICAL REPAIR 2013 WITH RESIDUAL NUMBNESS AND PAIN - MACROCYTIC ANEMIA PULMONARY NODULES - CHEST CT 09/25/13 - MILD COPD, OLD GRANULOMATOUS DISEASE WITH CALCIFIED 11MM NODULE IN LLL, CALCIFIED LEFT HILAR NODES. 3MM NONCALCIFIED PULMONARY NODULE JUST ADJACENT TO AND CONTINUOS WITH OTHER PULMONARY NODULE. RECOMMEND F/U CT CHEST 09/25. - F/U CT DONE 08/03/15 - CHRONIC CHANGES, STABLE 3 MM NODULE C/W 09/25/13 - NO FURTHER IMAGING NEEDED VITAMIN D DEFICIENCY RIGHT TORN ROTATOR CUFF/ TORN LEFT ROTATOR CUFF DEPRESSION HYPERTENSION BL HAND TREMOR - PER IMAGING AT [facility] - C-SPINE X-RAYS SHOWED SEVERE DEGENERATIVE CHANGES, MRI SHOWED MILD DEGENERATIVE CHANGES. F/U MRI PENDING PER NEUROSURGERY (COMP CASE) - NEUOLOGY DR. 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 2 SON(S) - HEALTHY. FATHER CIRRHOSIS OF LIVER\\NMOTHER HAD BREAST CANCER, BONE CANCER. SOCIAL HISTORY GENERAL: TOBACCO USE ARE YOU A:CURRENT SMOKER ARE YOU INTERESTED IN QUITTING?NOT READY TO QUIT COUNSELED THE PATIENT ON SMOKING EFFECTS, EDUCATION [id number]/14/2019 HOW MANY CIGARETTES A DAY DO YOU SMOKE?6-10 HOW OFTEN DO YOU SMOKE CIGARETTES?EVERY DAY PATIENT COUNSELED ON THE DANGERS OF TOBACCO USE AND URGED TO QUIT:02/24/2019 OTHERS AT HOME: SPOUSE. EDUCATION LEVEL OF EDUCATION:COLLEGE DIET: REGULAR. LANGUAGE LANGUAGES SPOKEN:PORTUGUESE DOMESTIC VIOLENCE DO YOU FEEL SAFE IN YOUR ENVIRONMENT?YES RECREATIONAL DRUG USE DRUG USE?NO EXERCISE: NO REGULAR EXERCISE. LEARNING BARRIERS / SPECIAL NEEDS CHANGE FROM LAST VISIT?NO BARRIERS TO LEARNING?NO HEARING IMPAIRED?NO VISION IMPAIRED?YES COGNITIVELY IMPAIRED?NO :CORRECTIVE LENSES READINESS TO LEARN?YES LEARNING PREFERENCES?NO LEARNING CAPABILITIES PRESENT?YES EMOTIONAL BARRIERS?NO SPECIAL DEVICES?NO CABLE TOOL OPERATOR NEEDED?NO PAIN CLINIC PFS, CLERGY, PUBLIC HEALTH REFERRALS PFS REFERRAL NEEDED?NO CLERGY REFERRAL NEEDED?NO PUBLIC HEALTH REFERRAL NEEDED?NO WAS THE PROVIDER NOTIFIED OF ANY PERTINENT INFO? N/A HAS THE PATIENT BEEN EDUCATED REGARDING HIS/HER PLAN OF CARE?YES HAS THE PATIENT BEEN EDUCATED REGARDING PAIN, THE RISK FOR PAIN, THE IMPORTANCE OF EFFECTIVE PAIN MANAGEMENT, AND THE PAIN ASSESSMENT PROCESS?YES LATEX QUESTIONNAIRE LATEX ALLERGY : HAVE YOU EVER DEVELOPED ANY TYPE OF REACTION AFTER HANDLING LATEX PRODUCTS SUCH RUBBER GLOVES, CONDOMS, DIAPHRAGMS, BALLOONS, SOCKS, OR UNDERWEAR?NO LATEX ALLERGY : HAVE YOU EVER DEVELOPED ANY TYPE OF REACTION DURING OR AFTER DENTAL APPOINTMENT, VAGINAL/RECTAL EXAMINATION, SURGICAL PROCEDURE, OR ANY OTHER EXPOSURE?NO DATE ASKED : 07/30/2018 LATEX RISK : HAVE YOU EVER HAD ANY DIFFICULTY BREATHING OR HIVES AFTER EATING OR HANDLING ANY FRUITS, OR VEGETABLES; SUCH KIWI, BANANAS, STONE FRUITS, OR CHESTNUTSNO LATEX RISK : DO YOU HAVE A PREVIOUS PERSONAL HISTORY OF MORE THAN NINE SURGERIES, SPINA BIFIDA, OR REPEATED CATHERIZATIONS? NO LATEX RISK : ARE YOU FREQUENTLY EXPOSED TO LATEX PRODUCTS IN YOUR OCCUPATION?NO CAFFEINE CAFFEINE USE?YES HOW OFTEN AND HOW MUCH? 6 CUPS COFFEE/DAY ADVANCE DIRECTIVE ADVANCE DIRECTIVE DISCUSSED WITH PATIENT:YES HCP - SAPNA MONROY [phone] QUAKER [id number] CONGREGATIONAL MARITAL STATUS: . ALCOHOL SCREENING DID YOU HAVE A DRINK CONTAINING ALCOHOL IN THE PAST YEAR?NO POINTS0 INTERPRETATIONNEGATIVE OCCUPATION: [employer]. SEXUAL HX HAD SEX IN THE LAST 12 MONTHS (VAGINAL, ORAL, OR ANAL)?NO HAVE YOU EVER HAD AN STD?NO REVIEWED NL 01-13-18 REVIEWED WITH PATIENT 03/12/18 1057 JSREVIEWED WITH PATIENT 04/07/18 1101 JS07/30/18 REVIEWED WITH PT. ADREVIEWED WITH PT 10/29/18 1015 BVREVIEWED WITH PATIENT 11/12/18 LAS REVIEWED WITH PATIENT 11/27/18 1024 NLJREVIEWED WITH PATIENT 12/25/18 1419 JSREVIEWED WITH PATIENT 02/24/2019 1431 NLJ. HOSPITALIZATION/MAJOR DIAGNOSTIC PROCEDURE SEES ABOVE REVIEW OF SYSTEMS REVIEWED BY: PROVIDER: YAS WHYTE . CONSTITUTIONAL: ANY CHANGE IN YOUR MEDICAL CONDITION? NO . CHILLS NO . FEVER NO . INFECTION: DO YOU HAVE NEW INFECTIONS? NO . DO YOU HAVE HISTORY OF MRSA? NO . MUSCULOSKELETAL: ANY NEW PATTERNS OF PAIN OR NUMBNESS? NO . GASTROENTEROLOGY: ANY NEW CHANGE IN BOWEL CONTROL? NO . GENITOURINARY: ANY NEW CHANGE IN BLADDER CONTROL? NO . IS THERE A CHANCE YOU COULD BE ? NO . HEMATOLOGY/LYMPH: DO YOU TAKE ANY BLOOD THINNERS? (FOR EXAMPLE- COUMADIN, PLAVIX, AGGRENOX, PLATEL, PRADAXA, OR XARELTO) NO . WHEN WAS YOUR LAST DOSE? DATE: TIME: . NEUROLOGY: HAVE YOU FALLEN IN THE PAST 12 MONTHS? NO . ANY NEW EXTREMITY NUMBNESS OR WEAKNESS? NO . CARDIOLOGY: DO YOU HAVE A PACEMAKER OR DEFIBRILLATOR? NO . RESPIRATORY: HAVE YOU BEEN SICK IN THE PAST WEEK? NO . FEVER NO . FLU LIKE SYMPTOMS? NO . COUGH NO . INTEGUMENTARY: DO YOU HAVE ANY RASHES OR OPEN SORES? NO . ALLERGIC/IMMUNO: ARE YOU ALLERGIC TO IV DYE? NO . ANY NEW ALLERGIES? NO . PSYCHIATRIC: DO YOU HAVE THOUGHTS OF HURTING YOURSELF OR SOMEONE ELSE? NO . ARE YOU ABUSED, NEGLECTED, OR IN AN UNSAFE ENVIRONMENT? NO . ENDOCRINOLOGY: ARE YOU DIABETIC? NO . OTHER: DO YOU NEED ANY PRESCRIPTIONS? NO . IF YES, PLEASE LIST: ____ . ANY NEW PROBLEMS WITH YOUR MEDICATIONS? NO . WHEN DID YOU LAST EAT? ____ . WHEN DID YOU LAST DRINK? ____ . WHAT DID YOU LAST DRINK? ____ . NAME OF PERSON DRIVING YOU HOME? ____ . DO YOU HAVE ANY OTHER QUESTIONS OR CONCERNS NO- STATES PAIN IS UNCHANGED, SOME DAYS ARE BETTER THAN OTHERS . VITAL SIGNS WT 163.4 LBS, HT 69 IN, BMI 24.13 INDEX, BP 141/101 MM HG, HR 82 /MIN, RR 18 /MIN, TEMP 97.9 F, OXYGEN SAT % 98%, SAFE IN ENV? (Y/N) YES, REVIEWED BY: NLJ02/24/2019- PT AND STATES BP HAS BEEN HIGHER LATELY, DENIES ANY SYMPTOMS OF CP, SOB, HEADACHE, LIGHTHEADEDNESS 1435 NLJ. EXAMINATION SHOULDER / UPPER ARM: SHOULDER:BILATERAL. RANGE OF MOTION:LIMITED RANGE OF MOTION ,30 DEGREES ABDUCTION HAS TO STOP DUE TO PAIN. STRENGTH:WEAK EDITORIAL SPECIALIST STRENGTH R>L.MST WEAK R>L 3/5. PALPATION:TENDER BILAT.R>L TRIGGER POINTS OVER RHOMBOID ,MIDSCAPULAR SHOULDERS BILAT.. GENERAL EXAMINATION: GENERALNO ACUTE DISTRESS, WELL NOURISHED AND HYDRATED. PSYCHAPPROPRIATE MOOD AND AFFECT . LUNGS:CLEAR TO AUSCULTATION BILATERALLY, NO WHEEZES, RHONCHI, RALES. HEART:NO MURMURS, REGULAR RATE AND RHYTHM. ASSESSMENTS PAIN IN RIGHT SHOULDER - M25.511 (PRIMARY) PAIN IN LEFT SHOULDER - M25.512 TREATMENT PAIN IN RIGHT SHOULDER CONTINUE AMITRIPTYLINE HCL TABLET, 25 MG, 3, ORALLY, ONCE A DAY CONTINUE LYRICA CAPSULE, 300 MG, 1 CAPSULE, ORALLY, BID MDD2 NOTES: W/C REQUEST TPI BILAT. SHOULDERS. PROCEDURES PN WORKMANS' COMP OPINION IN YOUR OPINION, WAS THE INCIDENT THAT THE PATIENT DESCRIBED THE COMPETENT MEDICAL CAUSE OF THIS INJURY/ILLNESS? YES ARE THE PATIENT'S COMPLAINTS CONSISTENT WITH HIS/HER HISTORY OF THE INJURY/ILLNESS? YES IS THE PATIENT'S HISTORY OF THE INJURY/ILLNESS CONSISTENT WITH YOUR OBJECTIVE FINDING? YES WHAT IS THE PERCENTAGE OF TEMPORARY IMPAIRMENT? MARKED = 75% IS THE PATIENT WORKING? NO DOCTOR ON SITE: DONTA QURESHI MD PREVENTIVE MEDICINE PAIN CLINIC TEACHING: PROCEDURE TEACHING TRIGGER POINT INJECTION INFORMATION REVIEWED WITH PT AND . BOTH VERBALIZE UNDERSTANDING WELL PRE PROCEDURE INSTRUCTIONS REVIEWED. PT DECLINED PRINTED PROCEDURE INFORMATION. 02/24/2019 1521 NLJ. PROCEDURE CODES FA211 ESTABILISHED PATIENT [facility] FACILITY CHARGE DISPOSITION & COMMUNICATION FOLLOW UP POST (REASON: W/C REQUEST TPI BILAT. SHOULDERS) ELECTRONICALLY SIGNED BY PATO DE LA CRUZ ON 03/03/2019 AT 12:44 PM EST DISCLAIMER : THIS IS A VISIT SUMMARY EXTRACTED FROM THE [employer] CHART. IT IS NOT A COPY OF THE [employer] PROGRESS NOTE. YULIET
== END ==
LOC: M PAIN 14:15
PROVIDERS: ATTEND Nurse Practitioner Family
DX: M25.511 Pain in right shoulder (principal); M25.512 Pain in left shoulder; E55.9 Vitamin D deficiency, unspecified; Z86.59 Personal history of other mental and behavioral disorders; I10 Essential (primary) hypertension; J44.9 Chronic obstructive pulmonary disease, unspecified; F17.210 Nicotine dependence, cigarettes, uncomplicated; Z88.0 Allergy status to penicillin; Z79.891 Long term (current) use of opiate analgesic; Z79.899 Other long term (current) drug therapy

== ENCOUNTER → 2019-02-27 | Outpatient (CLI) | payer BC, OTHER ==
--- NOTE | 2019-03-17 05:48 | ECWPNPC ---
PATIENT NAME: TAMARA MONROY : 1965 GENDER: MALE VISIT DATE: 02/27/2019 DISCHARGE DATE: 02/27/19 1349 VISIT LOCKED DATE TIME: PHYSICIAN: YAS ROBERTSON RESOURCE: YAS ROBERTSON REASON FOR APPOINTMENT 1. NON COMP- LOW BACK HISTORY OF PRESENT ILLNESS HISTORY OF PRESENT ILLNESS: HERE FOR F/U OF CHRONIC LOW BACK PAIN.PAIN HAS ESCALATED OVER THE PAST MONTH.HAS HAD LESI IN THE PAST WITH GOOD PAIN RELIEF. RATING PAIN LEVEL A 5-7/10 VAS. DESCRIBES PAIN IS CONTINUOUS, ACHING AND TENDERNESS. PAIN THE PATIENT DESCRIBES THE PAIN... FALL RISK SCREENING: SCREENING :NO FALLS REPORTED IN THE LAST YEAR CURRENT MEDICATIONS TAKING MULTIVITAMINS OTC TABLET 1 TABLET ORALLY ONCE A DAY TAKING VITAMIN D (ERGOCALCIFEROL) 99376 UNIT CAPSULE 1 CAPSULE ORALLY ONCE A WEEK (MONDAYS) TAKING SOMA 350 MG TABLET 1 TABLET ORALLY Q8H MDD3 TAKING GABAPENTIN 300 MG CAPSULE 1 CAPSULE ORALLY THREE TIMES A DAY TAKING LOSARTAN POTASSIUM 50 MG TABLET 1 TABLET ORALLY ONCE A DAY TAKING AMLODIPINE BESYLATE 5 MG TABLET TAKE 1 TABLET DAILY TAKING CYMBALTA 30 MG CAPSULE DELAYED RELEASE PARTICLES 1 CAPSULE TWICE A DAY ORALLY 90 DAY(S) TAKING IBUPROFEN 800 MG TABLET 1 TABLET ORALLY NEEDED THREE TIMES A DAY TAKING BACLOFEN 20 MG TABLET 1 TABLET WITH FOOD OR MILK ORALLY Q6H QID TAKING MORPHINE SULFATE ER 15 MG TABLET EXTENDED RELEASE 1 TO 2 DIRECTED ORALLY 1 IN AM,2 AT HS MDD3 TAKING PERCOCET 10-325 MG TABLET 1 TABLET NEEDED ORALLY EVERY 6 HRSMDD4 TAKING AMITRIPTYLINE HCL 25 MG TABLET 3 ORALLY ONCE A DAY TAKING LYRICA 300 MG CAPSULE 1 CAPSULE ORALLY BID MDD2 MEDICATION LIST REVIEWED AND RECONCILED WITH THE PATIENT PAST MEDICAL HISTORY CHRONIC LOW BACK PAIN - DDD RIGHT ARM PAIN - BICEPS TENDON RUPTURE - [facility] - S/P SURGICAL REPAIR 2013 WITH RESIDUAL NUMBNESS AND PAIN - MACROCYTIC ANEMIA PULMONARY NODULES - CHEST CT 09/25/13 - MILD COPD, OLD GRANULOMATOUS DISEASE WITH CALCIFIED 11MM NODULE IN LLL, CALCIFIED LEFT HILAR NODES. 3MM NONCALCIFIED PULMONARY NODULE JUST ADJACENT TO AND CONTINUOS WITH OTHER PULMONARY NODULE. RECOMMEND F/U CT CHEST 09/25. - F/U CT DONE 08/03/15 - CHRONIC CHANGES, STABLE 3 MM NODULE C/W 09/25/13 - NO FURTHER IMAGING NEEDED VITAMIN D DEFICIENCY RIGHT TORN ROTATOR CUFF/ TORN LEFT ROTATOR CUFF DEPRESSION HYPERTENSION BL HAND TREMOR - PER IMAGING AT [facility] - C-SPINE X-RAYS SHOWED SEVERE DEGENERATIVE CHANGES, MRI SHOWED MILD DEGENERATIVE CHANGES. F/U MRI PENDING PER NEUROSURGERY (COMP CASE) - NEUOLOGY DR. 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 2 SON(S) - HEALTHY. FATHER CIRRHOSIS OF LIVER\\NMOTHER HAD BREAST CANCER, BONE CANCER. SOCIAL HISTORY GENERAL: TOBACCO USE ARE YOU A:CURRENT SMOKER ARE YOU INTERESTED IN QUITTING?NOT READY TO QUIT COUNSELED THE PATIENT ON SMOKING EFFECTS, EDUCATION [id number]/14/2019 HOW MANY CIGARETTES A DAY DO YOU SMOKE?6-10 HOW OFTEN DO YOU SMOKE CIGARETTES?EVERY DAY PATIENT COUNSELED ON THE DANGERS OF TOBACCO USE AND URGED TO QUIT:02/27/2019 OTHERS AT HOME: SPOUSE. EDUCATION LEVEL OF EDUCATION:COLLEGE DIET: REGULAR. LANGUAGE LANGUAGES SPOKEN:EQUATORIAL GUINEAN DOMESTIC VIOLENCE DO YOU FEEL SAFE IN YOUR ENVIRONMENT?YES RECREATIONAL DRUG USE DRUG USE?NO EXERCISE: NO REGULAR EXERCISE. LEARNING BARRIERS / SPECIAL NEEDS CHANGE FROM LAST VISIT?NO BARRIERS TO LEARNING?NO HEARING IMPAIRED?NO VISION IMPAIRED?YES COGNITIVELY IMPAIRED?NO :CORRECTIVE LENSES READINESS TO LEARN?YES LEARNING PREFERENCES?NO LEARNING CAPABILITIES PRESENT?YES EMOTIONAL BARRIERS?NO SPECIAL DEVICES?NO RENEWABLE ENERGY TRADER NEEDED?NO PAIN CLINIC PFS, CLERGY, PUBLIC HEALTH REFERRALS PFS REFERRAL NEEDED?NO CLERGY REFERRAL NEEDED?NO PUBLIC HEALTH REFERRAL NEEDED?NO WAS THE PROVIDER NOTIFIED OF ANY PERTINENT INFO?YES N/A HAS THE PATIENT BEEN EDUCATED REGARDING HIS/HER PLAN OF CARE?YES HAS THE PATIENT BEEN EDUCATED REGARDING PAIN, THE RISK FOR PAIN, THE IMPORTANCE OF EFFECTIVE PAIN MANAGEMENT, AND THE PAIN ASSESSMENT PROCESS?YES LATEX QUESTIONNAIRE LATEX ALLERGY : HAVE YOU EVER DEVELOPED ANY TYPE OF REACTION AFTER HANDLING LATEX PRODUCTS SUCH RUBBER GLOVES, CONDOMS, DIAPHRAGMS, BALLOONS, SOCKS, OR UNDERWEAR?NO LATEX ALLERGY : HAVE YOU EVER DEVELOPED ANY TYPE OF REACTION DURING OR AFTER DENTAL APPOINTMENT, VAGINAL/RECTAL EXAMINATION, SURGICAL PROCEDURE, OR ANY OTHER EXPOSURE?NO LATEX RISK : HAVE YOU EVER HAD ANY DIFFICULTY BREATHING OR HIVES AFTER EATING OR HANDLING ANY FRUITS, OR VEGETABLES; SUCH KIWI, BANANAS, STONE FRUITS, OR CHESTNUTSNO LATEX RISK : DO YOU HAVE A PREVIOUS PERSONAL HISTORY OF MORE THAN NINE SURGERIES, SPINA BIFIDA, OR REPEATED CATHERIZATIONS? NO LATEX RISK : ARE YOU FREQUENTLY EXPOSED TO LATEX PRODUCTS IN YOUR OCCUPATION?NO DATE ASKED : 02/27/2019 CAFFEINE CAFFEINE USE?YES HOW OFTEN AND HOW MUCH? 6 CUPS COFFEE/DAY ADVANCE DIRECTIVE ADVANCE DIRECTIVE DISCUSSED WITH PATIENT:YES HCP - SAPNA MONROY [phone] CONFUCIANISM [id number] SPIRITISM MARITAL STATUS: . 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 SEXUAL HX HAD SEX IN THE LAST 12 MONTHS (VAGINAL, ORAL, OR ANAL)?NO HAVE YOU EVER HAD AN STD?NO REVIEWED NL 01-13-18 REVIEWED WITH PATIENT 03/12/18 1057 JSREVIEWED WITH PATIENT 04/07/18 1101 JS07/30/18 REVIEWED WITH PT. ADREVIEWED WITH PT 10/29/18 1015 BVREVIEWED WITH PATIENT 11/12/18 LAS REVIEWED WITH PATIENT 11/27/18 1024 NLJREVIEWED WITH PATIENT 12/25/18 1419 JSREVIEWED WITH PATIENT 02/24/2019 1431 NLJREVIEWED WITH PATIENT 02/27/19 DS. HOSPITALIZATION/MAJOR DIAGNOSTIC PROCEDURE SEES ABOVE REVIEW OF SYSTEMS REVIEWED BY: PROVIDER: YAS WHYTE . CONSTITUTIONAL: ANY CHANGE IN YOUR MEDICAL CONDITION? NO . CHILLS NO . FEVER NO . INFECTION: DO YOU HAVE NEW INFECTIONS? NO . DO YOU HAVE HISTORY OF MRSA? NO . MUSCULOSKELETAL: ANY NEW PATTERNS OF PAIN OR NUMBNESS? NO . GASTROENTEROLOGY: ANY NEW CHANGE IN BOWEL CONTROL? NO . GENITOURINARY: ANY NEW CHANGE IN BLADDER CONTROL? NO . IS THERE A CHANCE YOU COULD BE ? NO . HEMATOLOGY/LYMPH: DO YOU TAKE ANY BLOOD THINNERS? (FOR EXAMPLE- COUMADIN, PLAVIX, AGGRENOX, PLATEL, PRADAXA, OR XARELTO) NO . WHEN WAS YOUR LAST DOSE? DATE: TIME: . NEUROLOGY: HAVE YOU FALLEN IN THE PAST 12 MONTHS? NO . ANY NEW EXTREMITY NUMBNESS OR WEAKNESS? NO . CARDIOLOGY: DO YOU HAVE A PACEMAKER OR DEFIBRILLATOR? NO . RESPIRATORY: HAVE YOU BEEN SICK IN THE PAST WEEK? NO . FEVER NO . FLU LIKE SYMPTOMS? NO . COUGH NO . INTEGUMENTARY: DO YOU HAVE ANY RASHES OR OPEN SORES? NO . ALLERGIC/IMMUNO: ARE YOU ALLERGIC TO IV DYE? NO . ANY NEW ALLERGIES? NO . PSYCHIATRIC: DO YOU HAVE THOUGHTS OF HURTING YOURSELF OR SOMEONE ELSE? NO . ARE YOU ABUSED, NEGLECTED, OR IN AN UNSAFE ENVIRONMENT? NO . ENDOCRINOLOGY: ARE YOU DIABETIC? NO . OTHER: DO YOU NEED ANY PRESCRIPTIONS? NO . IF YES, PLEASE LIST: ____ . ANY NEW PROBLEMS WITH YOUR MEDICATIONS? NO . WHEN DID YOU LAST EAT? ____ . WHEN DID YOU LAST DRINK? ____ . WHAT DID YOU LAST DRINK? ____ . NAME OF PERSON DRIVING YOU HOME? ____ . DO YOU HAVE ANY OTHER QUESTIONS OR CONCERNS NO . VITAL SIGNS WT 163.4 LBS, HT 69 IN, BMI 24.13 INDEX, BP 145/91 MM HG, HR 76 /MIN, RR 18 /MIN, TEMP 97.9 F, OXYGEN SAT % 99, SAFE IN ENV? (Y/N) Y, REVIEWED BY: HARPREET. EXAMINATION GENERAL EXAMINATION: GENERAL AWAKE,ALERT ,PLEAASANT . PSYCH AFFECT NORMAL . LUNGS: LUNG SHI ARE CLEAR TO AUSCULTATION BILATERALLY. GOOD MOVEMENT OF AIR . HEART: S1, S2 IN A REGULAR RATE AND RHYTHM. NO SIGNIFICANT MURMURS, RUBS OR GALLOPS NOTED . MUSCULOSKELETAL: SLIGHT WEAKNESS NOTED OVER LEFT LEG. LUMBAR: PALPATION: + FOR PAIN OVER L/S SPINE. + FOR PAIN OVER L/S PARASPINALS. NEUROLOGIC EXAM: NORMAL SENSATION LIGHT TOUCH BILAT. LOWER EXTREMITIES. DIAGNOSTIC TESTS REVIEWED MRI L/S SPINE-08/01/17. ASSESSMENTS INTERVERTEBRAL DISC DISORDERS WITH RADICULOPATHY, LUMBOSACRAL REGION - M51.17 (PRIMARY) TREATMENT INTERVERTEBRAL DISC DISORDERS WITH RADICULOPATHY, LUMBOSACRAL REGION NOTES: L4/5 RATNAI. PREVENTIVE MEDICINE PAIN CLINIC TEACHING: THE PATIENT HAS BEEN EDUCATED REGARDING PAIN, THE RISK FOR PAIN, THE IMPORTANCE OF EFFECTIVE PAIN MANAGEMENT, AND THE PAIN ASSESSMENT PROCESS. : REVIEWED AND DISCUSSED TREATMENT PLAN WITH PATIENT, REVIEWED PRE-PROCEDURE INSTRUCTIONS FOR LUMBAR EPIDURAL, PT ACKNOWLEDGED UNDERSTANDING. DS PROCEDURE CODES FA211 ESTABILISHED PATIENT [facility] CHARGE DISPOSITION & COMMUNICATION FOLLOW UP POST (REASON: L4/5 LESI) ELECTRONICALLY SIGNED BY YAS WHYTE, PATO ON 03/16/2019 AT 04:36 PM EST DISCLAIMER : THIS IS A VISIT SUMMARY EXTRACTED FROM THE [employer] CHART. IT IS NOT A COPY OF THE [employer] PROGRESS NOTE. YULIET
== END ==
LOC: M PAIN 13:15
PROVIDERS: ATTEND Nurse Practitioner Family
DX: M51.17 Intervertebral disc disorders with radiculopathy, lumbosacral region (principal); G89.29 Other chronic pain; J44.9 Chronic obstructive pulmonary disease, unspecified; E55.9 Vitamin D deficiency, unspecified; Z86.59 Personal history of other mental and behavioral disorders; I10 Essential (primary) hypertension; F17.210 Nicotine dependence, cigarettes, uncomplicated; Z88.0 Allergy status to penicillin; Z79.891 Long term (current) use of opiate analgesic; Z79.899 Other long term (current) drug therapy

== ENCOUNTER → 2019-03-25 | Outpatient (CLI) | payer BC, OTHER ==
[~2019-03-25] MED LIST changes: +ISOVUE-M 300 61% 15ML VIAL (Q9967) As Ordered ONE; +LIDOCAINE 1% SDV INJ 30 ML VIAL As Ordered ONE; +diazePAM 5 MG TAB As Ordered ONE; +methylPREDNISolone SUSP 40 MG/ML (DEPO-medrol) VIAL (J1030) As Ordered ONE; +oxyCODONE 5MG TAB As Ordered ONE
--- NOTE | 2019-03-25 14:54 | REP ---
Partial lumbar spine series: Three views . History: Injection procedure for pain. Nine seconds of fluoroscopy time is reported. Findings: A sequence of three fluoroscopically obtained last image hold procedural spot radiographs of the lumbar spine document needle position and contrast injection associated with injection procedure. Electronically Signed by Jonathan Nichols MD 03/25/2019 02:45 P
--- NOTE | 2019-04-14 05:15 | ECWPNPC ---
PATIENT NAME: TAMARA MONROY : 1965 GENDER: MALE VISIT DATE: 03/25/2019 DISCHARGE DATE: 03/25/19 1330 VISIT LOCKED DATE TIME: PHYSICIAN: DONTA ISAAC MD RESOURCE: DONTA ISAAC MD REASON FOR APPOINTMENT 1. BCBS-L4/5 LESI HISTORY OF PRESENT ILLNESS HISTORY OF PRESENT ILLNESS: PAIN THE PATIENT DESCRIBES THE PAIN... FALL RISK SCREENING: SCREENING :NO FALLS REPORTED IN THE LAST YEAR CURRENT MEDICATIONS TAKING MULTIVITAMINS OTC TABLET 1 TABLET ORALLY ONCE A DAY, NOTES: 03/25 6AM TAKING VITAMIN D (ERGOCALCIFEROL) 46361 UNIT CAPSULE 1 CAPSULE ORALLY ONCE A WEEK (MONDAYS), NOTES: 03/25 6AM TAKING SOMA 350 MG TABLET 1 TABLET ORALLY Q8H MDD3, NOTES: 03/25 6AM TAKING GABAPENTIN 300 MG CAPSULE 1 CAPSULE ORALLY THREE TIMES A DAY, NOTES: 03/25 6AM TAKING LOSARTAN POTASSIUM 50 MG TABLET 1 TABLET ORALLY ONCE A DAY, NOTES: 03/25 6AM TAKING AMLODIPINE BESYLATE 5 MG TABLET TAKE 1 TABLET DAILY , NOTES: 03/25 6AM TAKING CYMBALTA 30 MG CAPSULE DELAYED RELEASE PARTICLES 1 CAPSULE TWICE A DAY ORALLY 90 DAY(S) , NOTES: 03/25 6AM TAKING IBUPROFEN 800 MG TABLET 1 TABLET ORALLY NEEDED THREE TIMES A DAY, NOTES: 03/25 6AM TAKING BACLOFEN 20 MG TABLET 1 TABLET WITH FOOD OR MILK ORALLY Q6H QID, NOTES: 03/25 6AM TAKING AMITRIPTYLINE HCL 25 MG TABLET 3 ORALLY ONCE A DAY, NOTES: 03/24 8PM TAKING LYRICA 300 MG CAPSULE 1 CAPSULE ORALLY BID MDD2, NOTES: 03/25 6AM TAKING MORPHINE SULFATE ER 15 MG TABLET EXTENDED RELEASE 1 TO 2 DIRECTED ORALLY 1 IN AM,2 AT HS MDD3, NOTES: 03/24 8PM TAKING PERCOCET 10-325 MG TABLET 1 TABLET NEEDED ORALLY EVERY 6 HRSMDD4, NOTES: 03/25 6AM MEDICATION LIST REVIEWED AND RECONCILED WITH THE PATIENT PAST MEDICAL HISTORY CHRONIC LOW BACK PAIN - DDD RIGHT ARM PAIN - BICEPS TENDON RUPTURE - [facility] - S/P SURGICAL REPAIR 2013 WITH RESIDUAL NUMBNESS AND PAIN - MACROCYTIC ANEMIA PULMONARY NODULES - CHEST CT 09/25/13 - MILD COPD, OLD GRANULOMATOUS DISEASE WITH CALCIFIED 11MM NODULE IN LLL, CALCIFIED LEFT HILAR NODES. 3MM NONCALCIFIED PULMONARY NODULE JUST ADJACENT TO AND CONTINUOS WITH OTHER PULMONARY NODULE. RECOMMEND F/U CT CHEST 09/25. - F/U CT DONE 08/03/15 - CHRONIC CHANGES, STABLE 3 MM NODULE C/W 09/25/13 - NO FURTHER IMAGING NEEDED VITAMIN D DEFICIENCY RIGHT TORN ROTATOR CUFF/ TORN LEFT ROTATOR CUFF DEPRESSION HYPERTENSION BL HAND TREMOR - PER IMAGING AT [facility] - C-SPINE X-RAYS SHOWED SEVERE DEGENERATIVE CHANGES, MRI SHOWED MILD DEGENERATIVE CHANGES. F/U MRI PENDING PER NEUROSURGERY (COMP CASE) - NEUOLOGY DR. 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 2 SON(S) - HEALTHY. FATHER CIRRHOSIS OF LIVER\\NMOTHER HAD BREAST CANCER, BONE CANCER. SOCIAL HISTORY GENERAL: TOBACCO USE ARE YOU A:CURRENT SMOKER ARE YOU INTERESTED IN QUITTING?NOT READY TO QUIT COUNSELED THE PATIENT ON SMOKING EFFECTS, EDUCATION [id number]/10/2020 HOW MANY CIGARETTES A DAY DO YOU SMOKE?6-10 HOW OFTEN DO YOU SMOKE CIGARETTES?EVERY DAY PATIENT COUNSELED ON THE DANGERS OF TOBACCO USE AND URGED TO QUIT:03/25/2019 OTHERS AT HOME: SPOUSE. EDUCATION LEVEL OF EDUCATION:COLLEGE DIET: REGULAR. LANGUAGE LANGUAGES SPOKEN:TURKMEN DOMESTIC VIOLENCE DO YOU FEEL SAFE IN YOUR ENVIRONMENT?YES RECREATIONAL DRUG USE DRUG USE?NO EXERCISE: NO REGULAR EXERCISE. LEARNING BARRIERS / SPECIAL NEEDS CHANGE FROM LAST VISIT?NO BARRIERS TO LEARNING?NO HEARING IMPAIRED?NO VISION IMPAIRED?YES COGNITIVELY IMPAIRED?NO :CORRECTIVE LENSES READINESS TO LEARN?YES LEARNING PREFERENCES?NO LEARNING CAPABILITIES PRESENT?YES EMOTIONAL BARRIERS?NO SPECIAL DEVICES?NO ROLL TESTER NEEDED?NO PAIN CLINIC PFS, CLERGY, PUBLIC HEALTH REFERRALS PFS REFERRAL NEEDED?NO CLERGY REFERRAL NEEDED?NO PUBLIC HEALTH REFERRAL NEEDED?NO WAS THE PROVIDER NOTIFIED OF ANY PERTINENT INFO?YES N/A HAS THE PATIENT BEEN EDUCATED REGARDING HIS/HER PLAN OF CARE?YES HAS THE PATIENT BEEN EDUCATED REGARDING PAIN, THE RISK FOR PAIN, THE IMPORTANCE OF EFFECTIVE PAIN MANAGEMENT, AND THE PAIN ASSESSMENT PROCESS?YES LATEX QUESTIONNAIRE LATEX ALLERGY : HAVE YOU EVER DEVELOPED ANY TYPE OF REACTION AFTER HANDLING LATEX PRODUCTS SUCH RUBBER GLOVES, CONDOMS, DIAPHRAGMS, BALLOONS, SOCKS, OR UNDERWEAR?NO LATEX ALLERGY : HAVE YOU EVER DEVELOPED ANY TYPE OF REACTION DURING OR AFTER DENTAL APPOINTMENT, VAGINAL/RECTAL EXAMINATION, SURGICAL PROCEDURE, OR ANY OTHER EXPOSURE?NO LATEX RISK : HAVE YOU EVER HAD ANY DIFFICULTY BREATHING OR HIVES AFTER EATING OR HANDLING ANY FRUITS, OR VEGETABLES; SUCH KIWI, BANANAS, STONE FRUITS, OR CHESTNUTSNO LATEX RISK : DO YOU HAVE A PREVIOUS PERSONAL HISTORY OF MORE THAN NINE SURGERIES, SPINA BIFIDA, OR REPEATED CATHERIZATIONS? NO LATEX RISK : ARE YOU FREQUENTLY EXPOSED TO LATEX PRODUCTS IN YOUR OCCUPATION?NO DATE ASKED : 03/25/2019 CAFFEINE CAFFEINE USE?YES HOW OFTEN AND HOW MUCH? 6 CUPS COFFEE/DAY ADVANCE DIRECTIVE ADVANCE DIRECTIVE DISCUSSED WITH PATIENT:YES HCP - SAPNA MONROY [phone] TENRIISM [id number] CATHOLIC MARITAL STATUS: . 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 SEXUAL HX HAD SEX IN THE LAST 12 MONTHS (VAGINAL, ORAL, OR ANAL)?NO HAVE YOU EVER HAD AN STD?NO REVIEWED NL 01-13-18 REVIEWED WITH PATIENT 03/12/18 1057 JSREVIEWED WITH PATIENT 04/07/18 1101 JS07/30/18 REVIEWED WITH PT. ADREVIEWED WITH PT 10/29/18 1015 BVREVIEWED WITH PATIENT 11/12/18 LAS REVIEWED WITH PATIENT 11/27/18 1024 NLJREVIEWED WITH PATIENT 12/25/18 1419 JSREVIEWED WITH PATIENT 02/24/2019 1431 NLJREVIEWED WITH PATIENT 02/27/19 DSPRE-PROCEDURE CALL DONE 03/23/19 EMREVIEWED WITH PATIENT 03/25/2019 DS. HOSPITALIZATION/MAJOR DIAGNOSTIC PROCEDURE SEES ABOVE REVIEW OF SYSTEMS REVIEWED BY: PROVIDER: . CONSTITUTIONAL: ANY CHANGE IN YOUR MEDICAL CONDITION? NO . CHILLS NO . FEVER NO . INFECTION: DO YOU HAVE NEW INFECTIONS? NO . DO YOU HAVE HISTORY OF MRSA? NO . MUSCULOSKELETAL: ANY NEW PATTERNS OF PAIN OR NUMBNESS? NO . GASTROENTEROLOGY: ANY NEW CHANGE IN BOWEL CONTROL? NO . GENITOURINARY: ANY NEW CHANGE IN BLADDER CONTROL? NO . IS THERE A CHANCE YOU COULD BE ? NO . HEMATOLOGY/LYMPH: DO YOU TAKE ANY BLOOD THINNERS? (FOR EXAMPLE- COUMADIN, PLAVIX, AGGRENOX, PLATEL, PRADAXA, OR XARELTO) NO . WHEN WAS YOUR LAST DOSE? DATE: TIME: . NEUROLOGY: HAVE YOU FALLEN IN THE PAST 12 MONTHS? NO . ANY NEW EXTREMITY NUMBNESS OR WEAKNESS? NO . CARDIOLOGY: DO YOU HAVE A PACEMAKER OR DEFIBRILLATOR? NO . RESPIRATORY: HAVE YOU BEEN SICK IN THE PAST WEEK? NO . FEVER NO . FLU LIKE SYMPTOMS? NO . COUGH NO . INTEGUMENTARY: DO YOU HAVE ANY RASHES OR OPEN SORES? NO . ALLERGIC/IMMUNO: ARE YOU ALLERGIC TO IV DYE? NO . ANY NEW ALLERGIES? NO . PSYCHIATRIC: DO YOU HAVE THOUGHTS OF HURTING YOURSELF OR SOMEONE ELSE? NO . ARE YOU ABUSED, NEGLECTED, OR IN AN UNSAFE ENVIRONMENT? NO . ENDOCRINOLOGY: ARE YOU DIABETIC? NO . OTHER: DO YOU NEED ANY PRESCRIPTIONS? NO . IF YES, PLEASE LIST: ____ . ANY NEW PROBLEMS WITH YOUR MEDICATIONS? NO . WHEN DID YOU LAST EAT? 03/24 630P . WHEN DID YOU LAST DRINK? 03/25 0500A . WHAT DID YOU LAST DRINK? WATER . NAME OF PERSON DRIVING YOU HOME? SAPNA MONROY . DO YOU HAVE ANY OTHER QUESTIONS OR CONCERNS NO . VITAL SIGNS WT 165.0 LBS, HT 69 IN, BMI 24.36 INDEX, BP 138/86 MM HG, HR 77 /MIN, RR 18 /MIN, TEMP 97.1 F, OXYGEN SAT % 94%, SAFE IN ENV? (Y/N) Y, NA INITIALS AW 1047, REVIEWED BY: DS. ASSESSMENTS INTERVERTEBRAL DISC DISORDERS WITH RADICULOPATHY, LUMBAR REGION - M51.16 (PRIMARY) PROCEDURES PRE PROCEDURE DIAGNOSIS LUMBAR DISC DISORDER WITH RADICULOPATHY POST PROCEDURE DIAGNOSIS LUMBAR DISC DISORDER WITH RADICULOPATHY PROCEDURE LUMBAR EPIDURAL STEROID INJECTION UNDER FLUOROSCOPIC GUIDANCE SURGEON DR. DONTA ISAAC EDGER MACHINE SETTER NONE ANESTHESIA LOCAL PRE PROCEDURE NOTE THE PATIENT HAS A HISTORY OF CHRONIC LOW BACK PAIN. I EVALUATE THE PATIENT AND REVIEWED THE CHART. I WENT OVER THE RISKS, ALTERNATIVES, AND BENEFITS ASSOCIATED WITH THIS PROCEDURE. THE PATIENT WOULD LIKE TO PROCEED AND GIVE CONSENT TO PERFORMED THE PROCEDURE. THE PATIENT DENIES UNEXPLAINABLE WEIGHT LOSS, FEVER, CHILLS, OR NEW CHANGES IN URINARY OR BOWEL CONTROL. DESCRIPTION OF PROCEDURE THE PATIENT WAS BROUGHT TO THE PROCEDURE ROOM AND PLACED IN THE PRONE POSITION. THE LUMBOSACRAL AREA WAS CLEANED WITH BETADINE SOLUTION AND DRAPED ASEPTICALLY. THE PROCEDURE WAS DONE UNDER STERILE CONDITIONS. I CHECKED LATERALITY AND THE LEVEL WHERE THE PROCEDURE WAS GOING TO BE PERFORMED WITH THE PATIENT AND THE SUPPORTING STAFF AT THE MOMENT OF THE TIME OUT IN THE PROCEDURE ROOM. UNDER FLUOROSCOPIC GUIDANCE, THE TARGET POINT WAS SELECTED AT THE INTERLAMINAR LEVEL OF L4-L5. LIDOCAINE WAS USED TO NUMB THE SKIN AND THE SUBCUTANEOUS TISSUE BELOW IT. EPIDURAL TUOHY NEEDLE, 17-GAUGE, WAS ADVANCED UNDER FLUOROSCOPIC GUIDANCE AND FOLLOWING PATIENT FEEDBACK UNTIL THE EPIDURAL SPACE WAS REACHED, 7 CM DEEP INTO THE SKIN BY THE LOSS OF RESISTANCE TECHNIQUE. ISOVUE M DYE 30%, 0.25 ML, WAS INJECTED SHOWING ADEQUATE SPREAD OF THE DYE. THEN, A SOLUTION OF 3 ML OF NORMAL SALINE WITH DEPO-MEDROL 60 MG WAS INJECTED SLOWLY FOLLOWING PATIENT FEEDBACK. THERE WAS NO EVIDENCE OF BLOOD, PARESTHESIA OR CEREBROSPINAL FLUID DURING THE PROCEDURE. THE PATIENT WAS SENT TO THE RECOVERY ROOM. THE PATIENT WAS MOVING THE EXTREMITIES AND DOING WELL. THERE WAS NO COMPLICATION DURING THE PROCEDURE. FLUOROSCOPY TIME WAS 9 SECONDS. POST PROCEDURE NOTE THE PATIENT WILL BE SEEN IN A FOLLOW UP IN THE NEXT FEW WEEKS. INSTRUCTIONS WERE GIVEN, QUESTIONS WERE ANSWERED, AND THE PATIENT EXPRESSED UNDERSTANDING AND AGREES WITH THE PLAN. I, PARISH DEAL, DOCUMENTED THE ABOVE INFORMATION ACTING A SCRIBE FOR DR. ISAAC. I HAVE REVIEWED THE ABOVE DOCUMENT, WRITTEN BY PARISH DEAL SCRIBKathy AND I VERIFY THAT IT IS ACCURATE. DIAGNOSTIC IMAGING [facility] FLU[facility]O GUIDE SPINE INJECTION (PAIN)[id number] PROCEDURE CODES 22105 LUMBAR/SACRAL W/ IMAGING 6045F RADXPS IN END [id number] PXD DISPOSITION & COMMUNICATION FOLLOW UP 2 WEEKS ELECTRONICALLY SIGNED BY DONTA ISAAC MD, MD ON 04/13/2019 AT 09:24 AM EST DISCLAIMER : THIS IS A VISIT SUMMARY EXTRACTED FROM THE [employer] CHART. IT IS NOT A COPY OF THE [employer] PROGRESS NOTE. MTDD
== END ==
LOC: M PAIN 10:45
PROVIDERS: ATTEND Anesthesiology
DX: M51.16 Intervertebral disc disorders with radiculopathy, lumbar region (principal)
CPT/HCPCS: 62323; J1030; Q9967

== ENCOUNTER → 2019-04-16 | Outpatient (CLI) | payer OTHER ==
[~2019-04-16] MED LIST changes: +BUPIVACAINE HCL 0.25% 30 ML VIAL As Ordered ONE; -ISOVUE-M 300 61% 15ML VIAL (Q9967) As Ordered ONE; -LIDOCAINE 1% SDV INJ 30 ML VIAL As Ordered ONE; +TRIAMCINOLONE ACETONIDE SUSP 40 MG/ML VIAL (J3301) As Ordered ONE; +diazePAM 2 MG TAB As Ordered ONE; -diazePAM 5 MG TAB As Ordered ONE; -methylPREDNISolone SUSP 40 MG/ML (DEPO-medrol) VIAL (J1030) As Ordered ONE; -oxyCODONE 5MG TAB As Ordered ONE
--- NOTE | 2019-04-23 05:39 | ECWPNPC ---
PATIENT NAME: TAMARA MONROY : 1965 GENDER: MALE VISIT DATE: 04/16/2019 DISCHARGE DATE: 04/16/19 1036 VISIT LOCKED DATE TIME: PHYSICIAN: DONTA ISAAC MD RESOURCE: DONTA ISAAC MD REASON FOR APPOINTMENT 1. W/C TPI BILAT. SHOULDERS HISTORY OF PRESENT ILLNESS HISTORY OF PRESENT ILLNESS: PAIN THE PATIENT DESCRIBES THE PAIN... FALL RISK SCREENING: SCREENING :NO FALLS REPORTED IN THE LAST YEAR CURRENT MEDICATIONS TAKING MULTIVITAMINS OTC TABLET 1 TABLET ORALLY ONCE A DAY, NOTES: 04-16-19729 TAKING SOMA 350 MG TABLET 1 TABLET ORALLY Q8H MDD3, NOTES: 04-16-19729 TAKING CYMBALTA 30 MG CAPSULE DELAYED RELEASE PARTICLES 1 CAPSULE TWICE A DAY ORALLY 90 DAY(S) , NOTES: 04-16-19729 TAKING IBUPROFEN 800 MG TABLET 1 TABLET ORALLY NEEDED THREE TIMES A DAY, NOTES: 04-16-19729 TAKING LYRICA 300 MG CAPSULE 1 CAPSULE ORALLY BID MDD2, NOTES: 04-16-19729 TAKING PERCOCET 10-325 MG TABLET 1 TABLET NEEDED ORALLY EVERY 6 HRSMDD4, NOTES: 04-16-19729 TAKING VITAMIN D (ERGOCALCIFEROL) 90971 UNIT CAPSULE 1 CAPSULE ORALLY ONCE A WEEK (MONDAYS), NOTES: 04-16-19729 TAKING BACLOFEN 20 MG TABLET 1 TABLET WITH FOOD OR MILK ORALLY Q6H QID, NOTES: 04-16-19729 TAKING GABAPENTIN 300 MG CAPSULE 1 CAPSULE ORALLY THREE TIMES A DAY, NOTES: 04-16-19729 TAKING AMITRIPTYLINE HCL 25 MG TABLET 3 ORALLY ONCE A DAY, NOTES: 04-15-191999 TAKING LOSARTAN POTASSIUM 50 MG TABLET 1 TABLET ORALLY ONCE A DAY, NOTES: 04-16-19729 TAKING AMLODIPINE BESYLATE 5 MG TABLET TAKE 1 TABLET DAILY , NOTES: 04-16-19729 TAKING ATORVASTATIN CALCIUM 40 MG TABLET 1 TABLET ORALLY ONCE A DAY, NOTES: 04-16-19729 TAKING MORPHINE SULFATE ER 15 MG TABLET EXTENDED RELEASE 1 TO 2 DIRECTED ORALLY 1 IN AM,2 AT HS MDD3, NOTES: 04-16-19729 TAKING NYSTATIN [id number] UNIT/GM CREAM 1 APPLICATION 2G EXTERNALLY TWICE A DAY TO RASH ON GROIN, NOTES: 04-16-19729 MEDICATION LIST REVIEWED AND RECONCILED WITH THE PATIENT PAST MEDICAL HISTORY CHRONIC LOW BACK PAIN - DDD RIGHT ARM PAIN - BICEPS TENDON RUPTURE - [facility] - S/P SURGICAL REPAIR 2013 WITH RESIDUAL NUMBNESS AND PAIN - MACROCYTIC ANEMIA PULMONARY NODULES - CHEST CT 09/25/13 - MILD COPD, OLD GRANULOMATOUS DISEASE WITH CALCIFIED 11MM NODULE IN LLL, CALCIFIED LEFT HILAR NODES. 3MM NONCALCIFIED PULMONARY NODULE JUST ADJACENT TO AND CONTINUOS WITH OTHER PULMONARY NODULE. RECOMMEND F/U CT CHEST 09/25. - F/U CT DONE 08/03/15 - CHRONIC CHANGES, STABLE 3 MM NODULE C/W 09/25/13 - NO FURTHER IMAGING NEEDED VITAMIN D DEFICIENCY RIGHT TORN ROTATOR CUFF/ TORN LEFT ROTATOR CUFF DEPRESSION HYPERTENSION BL HAND TREMOR - PER IMAGING AT [facility] - C-SPINE X-RAYS SHOWED SEVERE DEGENERATIVE CHANGES, MRI SHOWED MILD DEGENERATIVE CHANGES. F/U MRI PENDING PER NEUROSURGERY (COMP CASE) - NEUOLOGY DR. 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 2 SON(S) - HEALTHY. FATHER CIRRHOSIS OF LIVER\\NMOTHER HAD BREAST CANCER, BONE CANCER. SOCIAL HISTORY GENERAL: TOBACCO USE ARE YOU A:CURRENT SMOKER ARE YOU INTERESTED IN QUITTING?NOT READY TO QUIT COUNSELED THE PATIENT ON SMOKING EFFECTS, EDUCATION [id number]/10/2020 HOW MANY CIGARETTES A DAY DO YOU SMOKE?6-10 HOW OFTEN DO YOU SMOKE CIGARETTES?EVERY DAY PATIENT COUNSELED ON THE DANGERS OF TOBACCO USE AND URGED TO QUIT:04/06/2019 OTHERS AT HOME: SPOUSE. EDUCATION LEVEL OF EDUCATION:COLLEGE DIET: REGULAR. LANGUAGE LANGUAGES SPOKEN:MAURITIAN DOMESTIC VIOLENCE DO YOU FEEL SAFE IN YOUR ENVIRONMENT?YES RECREATIONAL DRUG USE DRUG USE?NO PATIENT DENIES ABUSE OR MISSUSED OF ANY MEDICATION DENIES PATIENT DENIES USE OF ANY ILLEGAL SUBSTANCE INCLUDING MARIJUANA OR COCAINE DENIES EXERCISE: NO REGULAR EXERCISE. LEARNING BARRIERS / SPECIAL NEEDS CHANGE FROM LAST VISIT?NO BARRIERS TO LEARNING?NO HEARING IMPAIRED?NO VISION IMPAIRED?YES COGNITIVELY IMPAIRED?NO :CORRECTIVE LENSES READINESS TO LEARN?YES LEARNING PREFERENCES?NO LEARNING CAPABILITIES PRESENT?YES EMOTIONAL BARRIERS?NO SPECIAL DEVICES?NO HEEL ATTACHER NEEDED?NO PAIN CLINIC PFS, CLERGY, PUBLIC HEALTH REFERRALS PFS REFERRAL NEEDED?NO CLERGY REFERRAL NEEDED?NO PUBLIC HEALTH REFERRAL NEEDED?NO WAS THE PROVIDER NOTIFIED OF ANY PERTINENT INFO?YES N/A HAS THE PATIENT BEEN EDUCATED REGARDING HIS/HER PLAN OF CARE?YES HAS THE PATIENT BEEN EDUCATED REGARDING PAIN, THE RISK FOR PAIN, THE IMPORTANCE OF EFFECTIVE PAIN MANAGEMENT, AND THE PAIN ASSESSMENT PROCESS?YES LATEX QUESTIONNAIRE LATEX ALLERGY : HAVE YOU EVER DEVELOPED ANY TYPE OF REACTION AFTER HANDLING LATEX PRODUCTS SUCH RUBBER GLOVES, CONDOMS, DIAPHRAGMS, BALLOONS, SOCKS, OR UNDERWEAR?NO LATEX ALLERGY : HAVE YOU EVER DEVELOPED ANY TYPE OF REACTION DURING OR AFTER DENTAL APPOINTMENT, VAGINAL/RECTAL EXAMINATION, SURGICAL PROCEDURE, OR ANY OTHER EXPOSURE?NO LATEX RISK : HAVE YOU EVER HAD ANY DIFFICULTY BREATHING OR HIVES AFTER EATING OR HANDLING ANY FRUITS, OR VEGETABLES; SUCH KIWI, BANANAS, STONE FRUITS, OR CHESTNUTSNO LATEX RISK : DO YOU HAVE A PREVIOUS PERSONAL HISTORY OF MORE THAN NINE SURGERIES, SPINA BIFIDA, OR REPEATED CATHERIZATIONS? NO LATEX RISK : ARE YOU FREQUENTLY EXPOSED TO LATEX PRODUCTS IN YOUR OCCUPATION?NO DATE ASKED : 04/06/2019 CAFFEINE CAFFEINE USE?YES HOW OFTEN AND HOW MUCH? 6 CUPS COFFEE/DAY ADVANCE DIRECTIVE ADVANCE DIRECTIVE DISCUSSED WITH PATIENT:YES HCP - SAPNA MONROY [phone] GNOSTICISM [id number] SCIENTOLOGY MARITAL STATUS: . 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 SEXUAL HX HAD SEX IN THE LAST 12 MONTHS (VAGINAL, ORAL, OR ANAL)?NO HAVE YOU EVER HAD AN STD?NO REVIEWED NL 01-13-18 REVIEWED WITH PATIENT 03/12/18 1057 JSREVIEWED WITH PATIENT 04/07/18 1101 JS07/30/18 REVIEWED WITH PT. ADREVIEWED WITH PT 10/29/18 1015 BVREVIEWED WITH PATIENT 11/12/18 LAS REVIEWED WITH PATIENT 11/27/18 1024 NLJREVIEWED WITH PATIENT 12/25/18 1419 JSREVIEWED WITH PATIENT 02/24/2019 1431 NLJREVIEWED WITH PATIENT 02/27/19 DSPRE-PROCEDURE CALL DONE 03/23/19 EMREVIEWED WITH PATIENT 03/25/2019 DSPRE PROCEDURE PHONE CALL COMPLETED 04/06/2019 1439 NLJ. HOSPITALIZATION/MAJOR DIAGNOSTIC PROCEDURE SEES ABOVE- SURGERIES REVIEW OF SYSTEMS REVIEWED BY: PROVIDER: . CONSTITUTIONAL: ANY CHANGE IN YOUR MEDICAL CONDITION? NO . CHILLS NO . FEVER NO . INFECTION: DO YOU HAVE NEW INFECTIONS? NO . DO YOU HAVE HISTORY OF MRSA? NO . MUSCULOSKELETAL: ANY NEW PATTERNS OF PAIN OR NUMBNESS? NO . GASTROENTEROLOGY: ANY NEW CHANGE IN BOWEL CONTROL? NO . GENITOURINARY: ANY NEW CHANGE IN BLADDER CONTROL? NO . IS THERE A CHANCE YOU COULD BE ? NO . HEMATOLOGY/LYMPH: DO YOU TAKE ANY BLOOD THINNERS? (FOR EXAMPLE- COUMADIN, PLAVIX, AGGRENOX, PLATEL, PRADAXA, OR XARELTO) NO . WHEN WAS YOUR LAST DOSE? DATE: TIME: . NEUROLOGY: HAVE YOU FALLEN IN THE PAST 12 MONTHS? NO . ANY NEW EXTREMITY NUMBNESS OR WEAKNESS? NO . CARDIOLOGY: DO YOU HAVE A PACEMAKER OR DEFIBRILLATOR? NO . RESPIRATORY: HAVE YOU BEEN SICK IN THE PAST WEEK? NO . FEVER NO . FLU LIKE SYMPTOMS? NO . COUGH NO . INTEGUMENTARY: DO YOU HAVE ANY RASHES OR OPEN SORES? NO . ALLERGIC/IMMUNO: ARE YOU ALLERGIC TO IV DYE? NO . ANY NEW ALLERGIES? NO . PSYCHIATRIC: DO YOU HAVE THOUGHTS OF HURTING YOURSELF OR SOMEONE ELSE? NO . ARE YOU ABUSED, NEGLECTED, OR IN AN UNSAFE ENVIRONMENT? NO . ENDOCRINOLOGY: ARE YOU DIABETIC? NO . OTHER: DO YOU NEED ANY PRESCRIPTIONS? NO . IF YES, PLEASE LIST: ____ . ANY NEW PROBLEMS WITH YOUR MEDICATIONS? NO . WHEN DID YOU LAST EAT? 04/15/19 1900 . WHEN DID YOU LAST DRINK? 04/16/19 0400 . WHAT DID YOU LAST DRINK? WATER . NAME OF PERSON DRIVING YOU HOME? SAPNA () . DO YOU HAVE ANY OTHER QUESTIONS OR CONCERNS NO . VITAL SIGNS WT 164 LBS, HT 69 IN, BMI 24.22 INDEX, BP 137/94 MM HG, HR 90 /MIN, RR 16 /MIN, TEMP 98.5 F, OXYGEN SAT % 96, REVIEWED BY: CARIE. ASSESSMENTS MYALGIA, OTHER SITE - M79.18 (PRIMARY) PROCEDURES PN WORKMANS' COMP OPINION IN YOUR OPINION, WAS THE INCIDENT THAT THE PATIENT DESCRIBED THE COMPETENT MEDICAL CAUSE OF THIS INJURY/ILLNESS? YES ARE THE PATIENT'S COMPLAINTS CONSISTENT WITH HIS/HER HISTORY OF THE INJURY/ILLNESS? YES IS THE PATIENT'S HISTORY OF THE INJURY/ILLNESS CONSISTENT WITH YOUR OBJECTIVE FINDING? YES WHAT IS THE PERCENTAGE OF TEMPORARY IMPAIRMENT? MARKED = 75% IS THE PATIENT WORKING? NO DOCTOR ON SITE: DONTA QURESHI MD PN TRIGGER POINT INJECTION WITH STEROIDS PRE PROCEDURE DIAGNOSIS 1. MYALGIA 2. PAIN AT BILATERAL SHOULDER AREA. POST PROCEDURE DIAGNOSIS 1. MYALGIA 2. PAIN AT BILATERAL SHOULDER AREA. PROCEDURE TRIGGER POINT INJECTION AT RIGHT AND LEFT SHOULDER AREA. SURGEON DR. DONTA ISAAC POLE SHAVER NONE ANESTHESIA LOCAL PRE PROCEDURE NOTE THE PATIENT HAS A HISTORY OF CHRONIC PAIN AT THE RIGHT AND LEFT SHOULDER AREA. I EVALUATED THE PATIENT AND REVIEWED THE CHART. THERE IS EVIDENCE OF BANDS OF TISSUE WITH RESTRICTION OF MOVEMENT AND PRESENCE OF TRIGGER POINT AT THE AFFECTED AREA. I WENT OVER THE RISKS, ALTERNATIVES, AND BENEFITS ASSOCIATED WITH THIS PROCEDURE. THE PATIENT WOULD LIKE TO PROCEED AND GIVE CONSENT TO PERFORMED THE PROCEDURE. THE PATIENT DENIES UNEXPLAINABLE WEIGHT LOSS, FEVER, CHILLS, OR NEW CHANGES IN URINARY OR BOWEL CONTROL DESCRIPTION OF PROCEDURE THE PATIENT WAS BROUGHT TO THE PROCEDURE ROOM AND PLACED IN THE SITTING POSITION. THE AREA WAS CLEANED WITH ALCOHOL. THE PROCEDURE WAS DONE USING ASEPTIC STERILE TECHNIQUE. I CHECKED LATERALITY AND THE LEVEL WHERE THE PROCEDURE WAS GOING TO BE PERFORMED WITH THE PATIENT AND THE SUPPORTING STAFF AT THE MOMENT OF THE TIME OUT IN THE PROCEDURE ROOM. USING A 25-GAUGE NEEDLE, TRIGGER POINTS WERE INJECTED AT THE RIGHT AND LEFT SHOULDER AREA WITH A TOTAL OF 40 ML OF BUPIVACAINE 0.25% AND KENALOG 40 MG. THERE WAS NO EVIDENCE OF BLOOD, PARESTHESIA OR CEREBROSPINAL FLUID DURING THE PROCEDURE. THE PATIENT WAS SENT TO THE RECOVERY ROOM. THE PATIENT WAS MOVING THE EXTREMITIES AND DOING WELL. THERE WAS NO COMPLICATION DURING THE PROCEDURE POST PROCEDURE NOTE THE PATIENT WILL BE SEEN IN A FOLLOW UP IN THE NEXT FEW WEEKS. INSTRUCTIONS WERE GIVEN, QUESTIONS WERE ANSWERED, AND THE PATIENT EXPRESSED UNDERSTANDING AND AGREES WITH THE PLAN. I, PARISH DEAL, DOCUMENTED THE ABOVE INFORMATION ACTING A SCRIBE FOR DR. ISAAC. I HAVE REVIEWED THE ABOVE DOCUMENT, WRITTEN BY PARISH HEMRIC SCRIBE AND I VERIFY THAT IT IS ACCURATE. PROCEDURE CODES 04662 INJ TRIGGER POINT / MUSCL DISPOSITION & COMMUNICATION FOLLOW UP 3 WEEKS ELECTRONICALLY SIGNED BY DONTA ISAAC MD, MD ON 04/22/2019 AT 11:26 AM EDT DISCLAIMER : THIS IS A VISIT SUMMARY EXTRACTED FROM THE [employer] CHART. IT IS NOT A COPY OF THE [employer] PROGRESS NOTE. YULIET
== END ==
LOC: M PAIN 09:15
PROVIDERS: ATTEND Anesthesiology
DX: M79.18 Myalgia, other site (principal)
CPT/HCPCS: 20552; J3301

== ENCOUNTER → 2019-04-21 | Outpatient (CLI) | payer BC ==
[~2019-04-21] MED LIST changes: -BUPIVACAINE HCL 0.25% 30 ML VIAL As Ordered ONE; -TRIAMCINOLONE ACETONIDE SUSP 40 MG/ML VIAL (J3301) As Ordered ONE; -diazePAM 2 MG TAB As Ordered ONE
--- NOTE | 2019-05-06 02:53 | ECWPNPC ---
PATIENT NAME: TAMARA MONROY : 1965 GENDER: MALE VISIT DATE: 04/21/2019 DISCHARGE DATE: 04/21/19 1114 VISIT LOCKED DATE TIME: PHYSICIAN: YAS ROBERTSON RESOURCE: YAS ROBERTSON REASON FOR APPOINTMENT 1. [employer]- POST LESI HISTORY OF PRESENT ILLNESS HISTORY OF PRESENT ILLNESS: HERE FOR POST PROCEDURE FOLLOW-UP. HAD L4-5 LESI ON 03/25/2019.. REPORTING SIGNIFICANT IMPROVEMENT IN LEFT LOW BACK AND LEFT LEG PAIN, BUT RIGHT LEG AND LOW BACK PAIN PERSISTS. RATING PAIN LEVEL A 5/10 VAS ON RIGHT SIDE. WILL BE HAVING LEFT SHOULDER SURGERY AND ULNAR NERVE SURGERY IN THE NEAR FUTURE. REVIEWED MRI AND DISCUSSED TREATMENT OPTIONS. PAIN THE PATIENT DESCRIBES THE PAIN... FALL RISK SCREENING: SCREENING :NO FALLS REPORTED IN THE LAST YEAR CURRENT MEDICATIONS TAKING MULTIVITAMINS OTC TABLET 1 TABLET ORALLY ONCE A DAY TAKING SOMA 350 MG TABLET 1 TABLET ORALLY Q8H MDD3 TAKING CYMBALTA 30 MG CAPSULE DELAYED RELEASE PARTICLES 1 CAPSULE TWICE A DAY ORALLY 90 DAY(S) TAKING IBUPROFEN 800 MG TABLET 1 TABLET ORALLY NEEDED THREE TIMES A DAY TAKING LYRICA 300 MG CAPSULE 1 CAPSULE ORALLY BID MDD2 TAKING PERCOCET 10-325 MG TABLET 1 TABLET NEEDED ORALLY EVERY 6 HRSMDD4 TAKING VITAMIN D (ERGOCALCIFEROL) 48889 UNIT CAPSULE 1 CAPSULE ORALLY ONCE A WEEK (MONDAYS) TAKING BACLOFEN 20 MG TABLET 1 TABLET WITH FOOD OR MILK ORALLY Q6H QID TAKING GABAPENTIN 300 MG CAPSULE 1 CAPSULE ORALLY THREE TIMES A DAY TAKING AMITRIPTYLINE HCL 25 MG TABLET 3 ORALLY ONCE A DAY TAKING LOSARTAN POTASSIUM 50 MG TABLET 1 TABLET ORALLY ONCE A DAY TAKING AMLODIPINE BESYLATE 5 MG TABLET TAKE 1 TABLET DAILY TAKING ATORVASTATIN CALCIUM 40 MG TABLET 1 TABLET ORALLY ONCE A DAY TAKING MORPHINE SULFATE ER 15 MG TABLET EXTENDED RELEASE 1 TO 2 DIRECTED ORALLY 1 IN AM,2 AT HS MDD3 TAKING NYSTATIN 315269 UNIT/GM CREAM 1 APPLICATION 2G EXTERNALLY TWICE A DAY TO RASH ON GROIN MEDICATION LIST REVIEWED AND RECONCILED WITH THE PATIENT PAST MEDICAL HISTORY CHRONIC LOW BACK PAIN - DDD RIGHT ARM PAIN - BICEPS TENDON RUPTURE - [facility] - S/P SURGICAL REPAIR 2013 WITH RESIDUAL NUMBNESS AND PAIN - MACROCYTIC ANEMIA PULMONARY NODULES - CHEST CT 09/25/13 - MILD COPD, OLD GRANULOMATOUS DISEASE WITH CALCIFIED 11MM NODULE IN LLL, CALCIFIED LEFT HILAR NODES. 3MM NONCALCIFIED PULMONARY NODULE JUST ADJACENT TO AND CONTINUOS WITH OTHER PULMONARY NODULE. RECOMMEND F/U CT CHEST 09/25. - F/U CT DONE 08/03/15 - CHRONIC CHANGES, STABLE 3 MM NODULE C/W 09/25/13 - NO FURTHER IMAGING NEEDED VITAMIN D DEFICIENCY RIGHT TORN ROTATOR CUFF/ TORN LEFT ROTATOR CUFF DEPRESSION HYPERTENSION BL HAND TREMOR - PER IMAGING AT [facility] - C-SPINE X-RAYS SHOWED SEVERE DEGENERATIVE CHANGES, MRI SHOWED MILD DEGENERATIVE CHANGES. F/U MRI PENDING PER NEUROSURGERY (COMP CASE) - NEUOLOGY DR. 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 2 SON(S) - HEALTHY. FATHER CIRRHOSIS OF LIVER\\NMOTHER HAD BREAST CANCER, BONE CANCER. SOCIAL HISTORY GENERAL: TOBACCO USE ARE YOU A:CURRENT SMOKER ARE YOU INTERESTED IN QUITTING?NOT READY TO QUIT COUNSELED THE PATIENT ON SMOKING EFFECTS, EDUCATION [id number]/10/2020 HOW MANY CIGARETTES A DAY DO YOU SMOKE?6-10 HOW OFTEN DO YOU SMOKE CIGARETTES?EVERY DAY PATIENT COUNSELED ON THE DANGERS OF TOBACCO USE AND URGED TO QUIT:04/06/2019 OTHERS AT HOME: SPOUSE. EDUCATION LEVEL OF EDUCATION:COLLEGE DIET: REGULAR. LANGUAGE LANGUAGES SPOKEN:MAORI DOMESTIC VIOLENCE DO YOU FEEL SAFE IN YOUR ENVIRONMENT?YES RECREATIONAL DRUG USE DRUG USE?NO PATIENT DENIES ABUSE OR MISSUSED OF ANY MEDICATION DENIES PATIENT DENIES USE OF ANY ILLEGAL SUBSTANCE INCLUDING MARIJUANA OR COCAINE DENIES EXERCISE: NO REGULAR EXERCISE. LEARNING BARRIERS / SPECIAL NEEDS CHANGE FROM LAST VISIT?NO BARRIERS TO LEARNING?NO HEARING IMPAIRED?NO VISION IMPAIRED?YES COGNITIVELY IMPAIRED?NO :CORRECTIVE LENSES READINESS TO LEARN?YES LEARNING PREFERENCES?NO LEARNING CAPABILITIES PRESENT?YES EMOTIONAL BARRIERS?NO SPECIAL DEVICES?NO RECORDS MANAGEMENT ASSOCIATE NEEDED?NO PAIN CLINIC PFS, CLERGY, PUBLIC HEALTH REFERRALS PFS REFERRAL NEEDED?NO CLERGY REFERRAL NEEDED?NO PUBLIC HEALTH REFERRAL NEEDED?NO WAS THE PROVIDER NOTIFIED OF ANY PERTINENT INFO?YES N/A HAS THE PATIENT BEEN EDUCATED REGARDING HIS/HER PLAN OF CARE?YES HAS THE PATIENT BEEN EDUCATED REGARDING PAIN, THE RISK FOR PAIN, THE IMPORTANCE OF EFFECTIVE PAIN MANAGEMENT, AND THE PAIN ASSESSMENT PROCESS?YES LATEX QUESTIONNAIRE LATEX ALLERGY : HAVE YOU EVER DEVELOPED ANY TYPE OF REACTION AFTER HANDLING LATEX PRODUCTS SUCH RUBBER GLOVES, CONDOMS, DIAPHRAGMS, BALLOONS, SOCKS, OR UNDERWEAR?NO LATEX ALLERGY : HAVE YOU EVER DEVELOPED ANY TYPE OF REACTION DURING OR AFTER DENTAL APPOINTMENT, VAGINAL/RECTAL EXAMINATION, SURGICAL PROCEDURE, OR ANY OTHER EXPOSURE?NO DATE ASKED : 04/06/2019 LATEX RISK : HAVE YOU EVER HAD ANY DIFFICULTY BREATHING OR HIVES AFTER EATING OR HANDLING ANY FRUITS, OR VEGETABLES; SUCH KIWI, BANANAS, STONE FRUITS, OR CHESTNUTSNO LATEX RISK : DO YOU HAVE A PREVIOUS PERSONAL HISTORY OF MORE THAN NINE SURGERIES, SPINA BIFIDA, OR REPEATED CATHERIZATIONS? NO LATEX RISK : ARE YOU FREQUENTLY EXPOSED TO LATEX PRODUCTS IN YOUR OCCUPATION?NO CAFFEINE CAFFEINE USE?YES HOW OFTEN AND HOW MUCH? 6 CUPS COFFEE/DAY ADVANCE DIRECTIVE ADVANCE DIRECTIVE DISCUSSED WITH PATIENT:YES HCP - SAPNA MONROY [phone] SHINTO [id number] YARSANI MARITAL STATUS: . 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 SEXUAL HX HAD SEX IN THE LAST 12 MONTHS (VAGINAL, ORAL, OR ANAL)?NO HAVE YOU EVER HAD AN STD?NO REVIEWED 01-13-18 REVIEWED WITH PATIENT 03/12/18 1057 JSREVIEWED WITH PATIENT 04/07/18 1101 JS07/30/18 REVIEWED WITH PT. ADREVIEWED WITH PT 10/29/18 1015 BVREVIEWED WITH PATIENT 11/12/18 LAS REVIEWED WITH PATIENT 11/27/18 1024 NLJREVIEWED WITH PATIENT 12/25/18 1419 JSREVIEWED WITH PATIENT 02/24/2019 1431 NLJREVIEWED WITH PATIENT 02/27/19 DSPRE-PROCEDURE CALL DONE 03/23/19 EMREVIEWED WITH PATIENT 03/25/2019 DSPRE PROCEDURE PHONE CALL COMPLETED 04/06/2019 1628 NLJ. HOSPITALIZATION/MAJOR DIAGNOSTIC PROCEDURE SEES ABOVE- SURGERIES REVIEW OF SYSTEMS REVIEWED BY: PROVIDER: YAS WHYTE . CONSTITUTIONAL: ANY CHANGE IN YOUR MEDICAL CONDITION? NO . CHILLS NO . FEVER NO . INFECTION: DO YOU HAVE NEW INFECTIONS? NO . DO YOU HAVE HISTORY OF MRSA? NO . MUSCULOSKELETAL: ANY NEW PATTERNS OF PAIN OR NUMBNESS? NO . GASTROENTEROLOGY: ANY NEW CHANGE IN BOWEL CONTROL? NO . GENITOURINARY: ANY NEW CHANGE IN BLADDER CONTROL? NO . IS THERE A CHANCE YOU COULD BE ? NO . HEMATOLOGY/LYMPH: DO YOU TAKE ANY BLOOD THINNERS? (FOR EXAMPLE- COUMADIN, PLAVIX, AGGRENOX, PLATEL, PRADAXA, OR XARELTO) NO . WHEN WAS YOUR LAST DOSE? DATE: TIME: . NEUROLOGY: HAVE YOU FALLEN IN THE PAST 12 MONTHS? NO . ANY NEW EXTREMITY NUMBNESS OR WEAKNESS? NO . CARDIOLOGY: DO YOU HAVE A PACEMAKER OR DEFIBRILLATOR? NO . RESPIRATORY: HAVE YOU BEEN SICK IN THE PAST WEEK? NO . FEVER NO . FLU LIKE SYMPTOMS? NO . COUGH NO . INTEGUMENTARY: DO YOU HAVE ANY RASHES OR OPEN SORES? NO . ALLERGIC/IMMUNO: ARE YOU ALLERGIC TO IV DYE? NO . ANY NEW ALLERGIES? NO . PSYCHIATRIC: DO YOU HAVE THOUGHTS OF HURTING YOURSELF OR SOMEONE ELSE? NO . ARE YOU ABUSED, NEGLECTED, OR IN AN UNSAFE ENVIRONMENT? NO . ENDOCRINOLOGY: ARE YOU DIABETIC? NO . OTHER: DO YOU NEED ANY PRESCRIPTIONS? PERCOSET . IF YES, PLEASE LIST: ____ . ANY NEW PROBLEMS WITH YOUR MEDICATIONS? NO . WHEN DID YOU LAST EAT? ____ . WHEN DID YOU LAST DRINK? ____ . WHAT DID YOU LAST DRINK? ____ . NAME OF PERSON DRIVING YOU HOME? ____ . DO YOU HAVE ANY OTHER QUESTIONS OR CONCERNS NO . VITAL SIGNS WT 166.2 LBS, HT 69 IN, BMI 24.54 INDEX, BP 142/89 MM HG, HR 86 /MIN, RR 16 /MIN, TEMP 98.2 F, OXYGEN SAT % 96%, SAFE IN ENV? (Y/N) Y, NA INITIALS TL 1005, REVIEWED BY: EM. EXAMINATION GENERAL EXAMINATION: GENERAL AWAKE,ALERT ,PLEAASANT . PSYCH AFFECT NORMAL . LUNGS: LUNG SHI ARE CLEAR TO AUSCULTATION BILATERALLY. GOOD MOVEMENT OF AIR . HEART: S1, S2 IN A REGULAR RATE AND RHYTHM. NO SIGNIFICANT MURMURS, RUBS OR GALLOPS NOTED . MUSCULOSKELETAL: SLIGHT WEAKNESS NOTED OVER LEFT LEG. LUMBAR:PALPATION: + FOR PAIN OVER L/S SPINE. + FOR PAIN OVER L/S PARASPINALS. SPECIFIC POINT TENDERNESS OVER RIGHT SIJ. NEUROLOGIC EXAM: NORMAL SENSATION LIGHT TOUCH BILAT. LOWER EXTREMITIES. DIAGNOSTIC TESTS REVIEWED MRI L/S SPINE-08/01/17. ASSESSMENTS SACROILIITIS - M46.1 (PRIMARY) TREATMENT SACROILIITIS REFILL PERCOCET TABLET, 10-325 MG, 1 TABLET NEEDED, ORALLY, EVERY 6 HRSMDD4, 30 DAY(S), 120, REFILLS 0 NOTES: BILAT SIJ,SACROILIAC JOINT STEROID INJECTION MATERIAL WAS PUBLISHED TO [employer]. PROCEDURE CODES FA211 ESTABILISHED PATIENT [facility] FACILITY CHARGE DISPOSITION & COMMUNICATION FOLLOW UP POST (REASON: BILAT SIJ) ELECTRONICALLY SIGNED BY PTAO DE LA CRUZ ON 05/05/2019 AT 04:17 PM EDT DISCLAIMER : THIS IS A VISIT SUMMARY EXTRACTED FROM THE [email or web address] CHART. IT IS NOT A COPY OF THE [email or web address] PROGRESS NOTE. JIMBOD
== END ==
LOC: M PAIN 10:30
PROVIDERS: ATTEND Nurse Practitioner Family
DX: M46.1 Sacroiliitis, not elsewhere classified (principal)

== ENCOUNTER → 2019-05-12 | Outpatient (CLI) | payer OTHER, BC ==
--- NOTE | 2019-05-13 01:27 | ECWPNPC ---
PATIENT NAME: TAMARA MONROY : 1965 GENDER: MALE VISIT DATE: 05/12/2019 DISCHARGE DATE: 05/12/19 1008 VISIT LOCKED DATE TIME: PHYSICIAN: YAS ROBERTSON RESOURCE: YAS ROBERTSON REASON FOR APPOINTMENT 1. W/C POST TPI HISTORY OF PRESENT ILLNESS HISTORY OF PRESENT ILLNESS: PAIN THE PATIENT DESCRIBES THE PAIN... FALL RISK SCREENING: SCREENING :NO FALLS REPORTED IN THE LAST YEAR FALL RISK SCREENING: HERE FOR POST PROCEDURE F/U.HAD TPI BILAT TRAPEZIUS AND SHOULDERS ON 04/16/2019.REPORTING SIGNIFICANT REDUCTION IN PAIN POST PROCEDURE. REPORTING IMPROVED ACTIVITY TOLERANCE POST PROCEDURE. OVER THE PAST WEEK, BILATERAL TRAPEZIUS AND SHOULDER PAIN HAS RETURNED. RATING PAIN VAS 4-6/10.ALSO HAVING EPISODES OF EXCRUCIATING LEFT ARM SHOOTING PAIN WITH ROJM OF LEFT ARM COMPROMISED.DESPITE ESCALATING DOSE OF GABAPENTIN FOR NEUROPATHIC PAIN HIS PAIN PERSISTS. THIS IS A WORK RELATED INJURY WITH DOI 9-15-17.HE WAS LIFTING TIRES AND HEARD A SNAP AND HAD EXCRUIATING PAIN BILATERAL SHOULDERS R>L.HE IS STATUS POST BILAT SHOULDER SURGERY(MAR 11 2017-LEFT_ _-MAY 2018 RIGHT).HAS BEEN HAVING CONSTANT TREMORS IN HANDS AT REST AND WITH USE SINCE INJURY.DENIES FEVER OR ILLNESS.DENIES WEIGHT LOSS. SCREENING : NO FALLS IN THE PAST YEAR. CURRENT MEDICATIONS TAKING MULTIVITAMINS OTC TABLET 1 TABLET ORALLY ONCE A DAY TAKING SOMA 350 MG TABLET 1 TABLET ORALLY Q8H MDD3 TAKING CYMBALTA 30 MG CAPSULE DELAYED RELEASE PARTICLES 1 CAPSULE TWICE A DAY ORALLY 90 DAY(S) TAKING IBUPROFEN 800 MG TABLET 1 TABLET ORALLY NEEDED THREE TIMES A DAY TAKING LYRICA 300 MG CAPSULE 1 CAPSULE ORALLY BID MDD2 TAKING VITAMIN D (ERGOCALCIFEROL) 08479 UNIT CAPSULE 1 CAPSULE ORALLY ONCE A WEEK (MONDAYS) TAKING BACLOFEN 20 MG TABLET 1 TABLET WITH FOOD OR MILK ORALLY Q6H QID TAKING GABAPENTIN 300 MG CAPSULE 1 CAPSULE ORALLY THREE TIMES A DAY TAKING AMITRIPTYLINE HCL 25 MG TABLET 3 ORALLY ONCE A DAY TAKING LOSARTAN POTASSIUM 50 MG TABLET 1 TABLET ORALLY ONCE A DAY TAKING AMLODIPINE BESYLATE 5 MG TABLET TAKE 1 TABLET DAILY TAKING ATORVASTATIN CALCIUM 40 MG TABLET 1 TABLET ORALLY ONCE A DAY TAKING PERCOCET 10-325 MG TABLET 1 TABLET NEEDED ORALLY EVERY 6 HRSMDD4 TAKING NYSTATIN 217278 UNIT/GM CREAM 1 APPLICATION 2G EXTERNALLY TWICE A DAY TO RASH ON GROIN TAKING MORPHINE SULFATE ER 15 MG TABLET EXTENDED RELEASE 1 TO 2 DIRECTED ORALLY 1 IN AM,2 AT HS MDD3 MEDICATION LIST REVIEWED AND RECONCILED WITH THE PATIENT PAST MEDICAL HISTORY CHRONIC LOW BACK PAIN - DDD RIGHT ARM PAIN - BICEPS TENDON RUPTURE - [facility] - S/P SURGICAL REPAIR 2013 WITH RESIDUAL NUMBNESS AND PAIN - MACROCYTIC ANEMIA PULMONARY NODULES - CHEST CT 09/25/13 - MILD COPD, OLD GRANULOMATOUS DISEASE WITH CALCIFIED 11MM NODULE IN LLL, CALCIFIED LEFT HILAR NODES. 3MM NONCALCIFIED PULMONARY NODULE JUST ADJACENT TO AND CONTINUOS WITH OTHER PULMONARY NODULE. RECOMMEND F/U CT CHEST 09/25. - F/U CT DONE 08/03/15 - CHRONIC CHANGES, STABLE 3 MM NODULE C/W 09/25/13 - NO FURTHER IMAGING NEEDED VITAMIN D DEFICIENCY RIGHT TORN ROTATOR CUFF/ TORN LEFT ROTATOR CUFF DEPRESSION HYPERTENSION BL HAND TREMOR - PER IMAGING AT [facility]-SPINE X-RAYS SHOWED SEVERE DEGENERATIVE CHANGES, MRI SHOWED MILD DEGENERATIVE CHANGES. F/U MRI PENDING PER NEUROSURGERY (COMP CASE) - NEUOLOGY DR. 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 2 SON(S) - HEALTHY. FATHER CIRRHOSIS OF LIVER\\NMOTHER HAD BREAST CANCER, BONE CANCER. SOCIAL HISTORY GENERAL: TOBACCO USE ARE YOU A:CURRENT SMOKER ARE YOU INTERESTED IN QUITTING?NOT READY TO QUIT COUNSELED THE PATIENT ON SMOKING EFFECTS, EDUCATION [id number]/31/2020 HOW MANY CIGARETTES A DAY DO YOU SMOKE?6-10 HOW OFTEN DO YOU SMOKE CIGARETTES?EVERY DAY PATIENT COUNSELED ON THE DANGERS OF TOBACCO USE AND URGED TO QUIT:04/06/2019 OTHERS AT HOME: SPOUSE. EDUCATION LEVEL OF EDUCATION:COLLEGE DIET: REGULAR. LANGUAGE LANGUAGES SPOKEN:TURKISH DOMESTIC VIOLENCE DO YOU FEEL SAFE IN YOUR ENVIRONMENT?YES NEW PATIENT PAIN DIARY PATIENT DESCRIBES PAIN :HAVE IT ALL THE TIME, THROBBING FROM 0-10, WHAT LEVEL IS YOUR PAIN TODAY?5 PRECIPITATING FACTORS REACHING ARMS ABOVE HEAD ALLEVIATING FACTORS NOTHING IMPACT ON FUNCTION YES RECREATIONAL DRUG USE DRUG USE?NO PATIENT DENIES ABUSE OR MISSUSED OF ANY MEDICATION DENIES PATIENT DENIES USE OF ANY ILLEGAL SUBSTANCE INCLUDING MARIJUANA OR COCAINE DENIES EXERCISE: NO REGULAR EXERCISE. LEARNING BARRIERS / SPECIAL NEEDS CHANGE FROM LAST VISIT?NO BARRIERS TO LEARNING?NO HEARING IMPAIRED?NO VISION IMPAIRED?YES COGNITIVELY IMPAIRED?NO :CORRECTIVE LENSES READINESS TO LEARN?YES LEARNING PREFERENCES?NO LEARNING CAPABILITIES PRESENT?YES EMOTIONAL BARRIERS?NO SPECIAL DEVICES?NO REEFER ENGINEER NEEDED?NO PAIN CLINIC PFS, CLERGY, PUBLIC HEALTH REFERRALS PFS REFERRAL NEEDED?NO CLERGY REFERRAL NEEDED?NO PUBLIC HEALTH REFERRAL NEEDED?NO WAS THE PROVIDER NOTIFIED OF ANY PERTINENT INFO?YES N/A HAS THE PATIENT BEEN EDUCATED REGARDING HIS/HER PLAN OF CARE?YES HAS THE PATIENT BEEN EDUCATED REGARDING PAIN, THE RISK FOR PAIN, THE IMPORTANCE OF EFFECTIVE PAIN MANAGEMENT, AND THE PAIN ASSESSMENT PROCESS?YES LATEX QUESTIONNAIRE LATEX ALLERGY : HAVE YOU EVER DEVELOPED ANY TYPE OF REACTION AFTER HANDLING LATEX PRODUCTS SUCH RUBBER GLOVES, CONDOMS, DIAPHRAGMS, BALLOONS, SOCKS, OR UNDERWEAR?NO LATEX ALLERGY : HAVE YOU EVER DEVELOPED ANY TYPE OF REACTION DURING OR AFTER DENTAL APPOINTMENT, VAGINAL/RECTAL EXAMINATION, SURGICAL PROCEDURE, OR ANY OTHER EXPOSURE?NO DATE ASKED : 04/06/2019 LATEX RISK : HAVE YOU EVER HAD ANY DIFFICULTY BREATHING OR HIVES AFTER EATING OR HANDLING ANY FRUITS, OR VEGETABLES; SUCH KIWI, BANANAS, STONE FRUITS, OR CHESTNUTSNO LATEX RISK : DO YOU HAVE A PREVIOUS PERSONAL HISTORY OF MORE THAN NINE SURGERIES, SPINA BIFIDA, OR REPEATED CATHERIZATIONS? NO LATEX RISK : ARE YOU FREQUENTLY EXPOSED TO LATEX PRODUCTS IN YOUR OCCUPATION?NO CAFFEINE CAFFEINE USE?YES HOW OFTEN AND HOW MUCH? 6 CUPS COFFEE/DAY ADVANCE DIRECTIVE ADVANCE DIRECTIVE DISCUSSED WITH PATIENT:YES HCP - SAPNA MONROY [phone] HOAHAOISM [id number] HINDUISM MARITAL STATUS: . ALCOHOL SCREENING DID YOU HAVE A DRINK CONTAINING ALCOHOL IN THE PAST YEAR?NO POINTS0 INTERPRETATIONNEGATIVE OCCUPATION: [employer]. SEXUAL HX HAD SEX IN THE LAST 12 MONTHS (VAGINAL, ORAL, OR ANAL)?NO HAVE YOU EVER HAD AN STD?NO REVIEWED NL 01-13-18 REVIEWED WITH PATIENT 1/30/19 1057 JSREVIEWED WITH PATIENT 04/07/18 1101 JS07/30/18 REVIEWED WITH PT. ADREVIEWED WITH PT 10/29/18 1015 BVREVIEWED WITH PATIENT 11/12/18 LAS REVIEWED WITH PATIENT 11/27/18 1024 NLJREVIEWED WITH PATIENT 12/25/18 1419 JSREVIEWED WITH PATIENT 02/24/2019 1431 NLJREVIEWED WITH PATIENT 02/27/19 DSPRE-PROCEDURE CALL DONE 03/23/19 EMREVIEWED WITH PATIENT 03/25/2019 DSPRE PROCEDURE PHONE CALL COMPLETED 04/06/2019 1628 NLJ. HOSPITALIZATION/MAJOR DIAGNOSTIC PROCEDURE SEES ABOVE- SURGERIES REVIEW OF SYSTEMS REVIEWED BY: PROVIDER: YAS WHYTE . CONSTITUTIONAL: ANY CHANGE IN YOUR MEDICAL CONDITION? NO . CHILLS NO . FEVER NO . INFECTION: DO YOU HAVE NEW INFECTIONS? NO . DO YOU HAVE HISTORY OF MRSA? NO . MUSCULOSKELETAL: ANY NEW PATTERNS OF PAIN OR NUMBNESS? NO . GASTROENTEROLOGY: ANY NEW CHANGE IN BOWEL CONTROL? NO . GENITOURINARY: ANY NEW CHANGE IN BLADDER CONTROL? NO . IS THERE A CHANCE YOU COULD BE ? NO . HEMATOLOGY/LYMPH: DO YOU TAKE ANY BLOOD THINNERS? (FOR EXAMPLE- COUMADIN, PLAVIX, AGGRENOX, PLATEL, PRADAXA, OR XARELTO) NO . WHEN WAS YOUR LAST DOSE? DATE: TIME: . NEUROLOGY: HAVE YOU FALLEN IN THE PAST 12 MONTHS? NO . ANY NEW EXTREMITY NUMBNESS OR WEAKNESS? NO . CARDIOLOGY: DO YOU HAVE A PACEMAKER OR DEFIBRILLATOR? NO . RESPIRATORY: HAVE YOU BEEN SICK IN THE PAST WEEK? NO . FEVER NO . FLU LIKE SYMPTOMS? NO . COUGH NO . INTEGUMENTARY: DO YOU HAVE ANY RASHES OR OPEN SORES? NO . ALLERGIC/IMMUNO: ARE YOU ALLERGIC TO IV DYE? NO . ANY NEW ALLERGIES? NO . PSYCHIATRIC: DO YOU HAVE THOUGHTS OF HURTING YOURSELF OR SOMEONE ELSE? NO . ARE YOU ABUSED, NEGLECTED, OR IN AN UNSAFE ENVIRONMENT? NO . ENDOCRINOLOGY: ARE YOU DIABETIC? NO . OTHER: DO YOU NEED ANY PRESCRIPTIONS? IBUPROFEN 90 DAY SUPPLY . IF YES, PLEASE LIST: ____ . ANY NEW PROBLEMS WITH YOUR MEDICATIONS? NO . WHEN DID YOU LAST EAT? ____ . WHEN DID YOU LAST DRINK? ____ . WHAT DID YOU LAST DRINK? ____ . NAME OF PERSON DRIVING YOU HOME? ____ . DO YOU HAVE ANY OTHER QUESTIONS OR CONCERNS NO . VITAL SIGNS WT 164 LBS, HT 69 IN, BMI 24.22 INDEX, BP 131/86 MM HG, HR 93 /MIN, RR 16 /MIN, TEMP 97.9 F, OXYGEN SAT % 97%, SAFE IN ENV? (Y/N) Y, NA INITIALS AW 0856, REVIEWED BY: EM. EXAMINATION SHOULDER / UPPER ARM: SHOULDER:BILATERAL. RANGE OF MOTION:LIMITED RANGE OF MOTION ,30 DEGREES ABDUCTION HAS TO STOP DUE TO PAIN. STRENGTH:WEAK STRUCTURAL IRON ERECTOR STRENGTH R>L.MST WEAK R>L 3/5. PALPATION:TENDER BILAT.R>L TRIGGER POINTS OVER RHOMBOID ,MIDSCAPULAR SHOULDERS BILAT.. GENERAL EXAMINATION: GENERALNO ACUTE DISTRESS, WELL NOURISHED AND HYDRATED. PSYCHAPPROPRIATE MOOD AND AFFECT . LUNGS:CLEAR TO AUSCULTATION BILATERALLY, NO WHEEZES, RHONCHI, RALES. HEART:NO MURMURS, REGULAR RATE AND RHYTHM. ASSESSMENTS MYALGIA, OTHER SITE - M79.18 (PRIMARY) TREATMENT MYALGIA, OTHER SITE NOTES: TPI BILAT TRAPEZIUS/SHOULDERS. PROCEDURES PN WORKMANS' COMP OPINION IN YOUR OPINION, WAS THE INCIDENT THAT THE PATIENT DESCRIBED THE COMPETENT MEDICAL CAUSE OF THIS INJURY/ILLNESS? YES ARE THE PATIENT'S COMPLAINTS CONSISTENT WITH HIS/HER HISTORY OF THE INJURY/ILLNESS? YES IS THE PATIENT'S HISTORY OF THE INJURY/ILLNESS CONSISTENT WITH YOUR OBJECTIVE FINDING? YES WHAT IS THE PERCENTAGE OF TEMPORARY IMPAIRMENT? MARKED = 75% IS THE PATIENT WORKING? YES DOCTOR ON SITE: DONTA QURESHI MD PROCEDURE CODES FA211 ESTABILISHED PATIENT [facility] FACILITY CHARGE DISPOSITION & COMMUNICATION FOLLOW UP POST (REASON: TPI BILAT TRAPEZIUS/SHOULDERS) ELECTRONICALLY SIGNED BY PATO DE LA CRUZ ON 05/12/2019 AT 12:36 PM EDT DISCLAIMER : THIS IS A VISIT SUMMARY EXTRACTED FROM THE [employer] CHART. IT IS NOT A COPY OF THE [employer] PROGRESS NOTE. YULIET
== END ==
LOC: M PAIN 09:30
PROVIDERS: ATTEND Nurse Practitioner Family
DX: M79.18 Myalgia, other site (principal); I10 Essential (primary) hypertension; F17.210 Nicotine dependence, cigarettes, uncomplicated; Z79.891 Long term (current) use of opiate analgesic; Z79.899 Other long term (current) drug therapy; Z88.0 Allergy status to penicillin

== ENCOUNTER → 2019-05-27 | Outpatient (CLI) | payer BC, OTHER ==
--- NOTE | 2019-06-02 00:56 | ECWPNPC ---
PATIENT NAME: TAMARA MONROY : 1965 GENDER: MALE VISIT DATE: 05/27/2019 DISCHARGE DATE: 05/27/19 1254 VISIT LOCKED DATE TIME: PHYSICIAN: DONTA ISAAC MD RESOURCE: DONTA ISAAC MD REASON FOR APPOINTMENT 1. FUAD ROJAS UNDER [employer] HISTORY OF PRESENT ILLNESS HISTORY OF PRESENT ILLNESS: PAIN THE PATIENT DESCRIBES THE PAIN... PERMISSION FROM PATIENT WAS RECEIVED TO DO TELEPHONE OFFICE VISIT. 54 YEAR OLD MALE PATIENT WITH A HISTORY OF CHRONIC LOW BACK PAIN. THE PATIENT DESCRIBES THE PAIN ACHING, HAVE IT ALL THE TIME, SHARP, THROBBING, SORE WITH A PAIN SCORE OF 5-8/10 DEPENDING ON PHYSICAL ACTIVITY. THE PATIENT STATES HIS PAIN IS MAINLY IN HIS LOW BACK THAT RADIATES DOWN TO THE TOP OF THE FRONT OF HIS KNEES AND HE ALSO EXPERIENCES PAIN IN BOTH ARMS. THE PATIENT SAYS THE RIGHT SIDE OF HIS LOW BACK IS WORSE, BUT HIS LAST LUMBAR EPIDURAL HELPED WITH HIS PAIN, BUT IT IS NOW RETURNING ON HIS LEFT SIDE WELL. THE PATIENT WAS BOOKED FOR A SACROILIAC JOINT BLOCK, BUT HE STATES HE UNDERSTANDS IT HAS TO BE POSTPONED DUE TO OUR CURRENT SITUATION. THE PATIENT SAYS HE IS CURRENTLY MANAGING HIS PAIN WITH HIS MEDICATION REGIMEN. PATIENT DENIES UNEXPLAINABLE WEIGHT LOSS, FEVER, CHILLS, NEW CHANGES ON HIS URINARY OR BOWEL CONTROL. FALL RISK SCREENING: SCREENING :NO FALLS REPORTED IN THE LAST YEAR CURRENT MEDICATIONS TAKING MULTIVITAMINS OTC TABLET 1 TABLET ORALLY ONCE A DAY TAKING SOMA 350 MG TABLET 1 TABLET ORALLY Q8H MDD3 TAKING CYMBALTA 30 MG CAPSULE DELAYED RELEASE PARTICLES 1 CAPSULE TWICE A DAY ORALLY 90 DAY(S) TAKING LYRICA 300 MG CAPSULE 1 CAPSULE ORALLY BID MDD2 TAKING VITAMIN D (ERGOCALCIFEROL) 59125 UNIT CAPSULE 1 CAPSULE ORALLY ONCE A WEEK (MONDAYS) TAKING BACLOFEN 20 MG TABLET 1 TABLET WITH FOOD OR MILK ORALLY Q6H QID TAKING AMITRIPTYLINE HCL 25 MG TABLET 3 ORALLY ONCE A DAY TAKING LOSARTAN POTASSIUM 50 MG TABLET 1 TABLET ORALLY ONCE A DAY TAKING AMLODIPINE BESYLATE 5 MG TABLET TAKE 1 TABLET DAILY TAKING ATORVASTATIN CALCIUM 40 MG TABLET 1 TABLET ORALLY ONCE A DAY TAKING MORPHINE SULFATE ER 15 MG TABLET EXTENDED RELEASE 1 TO 2 DIRECTED ORALLY 1 IN AM,2 AT HS MDD3 TAKING IBUPROFEN 800 MG TABLET 1 TABLET ORALLY NEEDED THREE TIMES A DAY TAKING PERCOCET 10-325 MG TABLET 1 TABLET NEEDED ORALLY EVERY 6 HRSMDD4 TAKING GABAPENTIN 300 MG CAPSULE 1 CAPSULE ORALLY THREE TIMES A DAY TAKING NYSTATIN [id number] UNIT/GM CREAM 1 APPLICATION 2G EXTERNALLY TWICE A DAY TO RASH ON GROIN MEDICATION LIST REVIEWED AND RECONCILED WITH THE PATIENT PAST MEDICAL HISTORY CHRONIC LOW BACK PAIN - DDD RIGHT ARM PAIN - BICEPS TENDON RUPTURE - [facility] - S/P SURGICAL REPAIR 2013 WITH RESIDUAL NUMBNESS AND PAIN - MACROCYTIC ANEMIA PULMONARY NODULES - CHEST CT 09/25/13 - MILD COPD, OLD GRANULOMATOUS DISEASE WITH CALCIFIED 11MM NODULE IN LLL, CALCIFIED LEFT HILAR NODES. 3MM NONCALCIFIED PULMONARY NODULE JUST ADJACENT TO AND CONTINUOS WITH OTHER PULMONARY NODULE. RECOMMEND F/U CT CHEST 09/25. - F/U CT DONE 08/03/15 - CHRONIC CHANGES, STABLE 3 MM NODULE C/W 09/25/13 - NO FURTHER IMAGING NEEDED VITAMIN D DEFICIENCY RIGHT TORN ROTATOR CUFF/ TORN LEFT ROTATOR CUFF DEPRESSION HYPERTENSION BL HAND TREMOR - PER IMAGING AT [facility]-SPINE X-RAYS SHOWED SEVERE DEGENERATIVE CHANGES, MRI SHOWED MILD DEGENERATIVE CHANGES. F/U MRI PENDING PER NEUROSURGERY (COMP CASE) - NEUOLOGY DR. 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 2 SON(S) - HEALTHY. FATHER CIRRHOSIS OF LIVER\\NMOTHER HAD BREAST CANCER, BONE CANCER. SOCIAL HISTORY GENERAL: TOBACCO USE ARE YOU A:CURRENT SMOKER ARE YOU INTERESTED IN QUITTING?NOT READY TO QUIT COUNSELED THE PATIENT ON SMOKING EFFECTS, EDUCATION [id number]/15/2020 HOW MANY CIGARETTES A DAY DO YOU SMOKE?6-10 HOW OFTEN DO YOU SMOKE CIGARETTES?EVERY DAY PATIENT COUNSELED ON THE DANGERS OF TOBACCO USE AND URGED TO QUIT:05/27/2019 LATEX QUESTIONNAIRE LATEX ALLERGY : HAVE YOU EVER DEVELOPED ANY TYPE OF REACTION AFTER HANDLING LATEX PRODUCTS SUCH RUBBER GLOVES, CONDOMS, DIAPHRAGMS, BALLOONS, SOCKS, OR UNDERWEAR?NO LATEX ALLERGY : HAVE YOU EVER DEVELOPED ANY TYPE OF REACTION DURING OR AFTER DENTAL APPOINTMENT, VAGINAL/RECTAL EXAMINATION, SURGICAL PROCEDURE, OR ANY OTHER EXPOSURE?NO LATEX RISK : HAVE YOU EVER HAD ANY DIFFICULTY BREATHING OR HIVES AFTER EATING OR HANDLING ANY FRUITS, OR VEGETABLES; SUCH KIWI, BANANAS, STONE FRUITS, OR CHESTNUTSNO LATEX RISK : DO YOU HAVE A PREVIOUS PERSONAL HISTORY OF MORE THAN NINE SURGERIES, SPINA BIFIDA, OR REPEATED CATHERIZATIONS? NO LATEX RISK : ARE YOU FREQUENTLY EXPOSED TO LATEX PRODUCTS IN YOUR OCCUPATION?NO DATE ASKED : 05/27/2019 ALCOHOL SCREENING DID YOU HAVE A DRINK CONTAINING ALCOHOL IN THE PAST YEAR?NO POINTS0 INTERPRETATIONNEGATIVE RECREATIONAL DRUG USE DRUG USE?NO PATIENT DENIES ABUSE OR MISSUSED OF ANY MEDICATION DENIES PATIENT DENIES USE OF ANY ILLEGAL SUBSTANCE INCLUDING MARIJUANA OR COCAINE DENIES CAFFEINE CAFFEINE USE?YES HOW OFTEN AND HOW MUCH? 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 DIET: REGULAR. EXERCISE: NO REGULAR EXERCISE. MARITAL STATUS: . OTHERS AT HOME: SPOUSE. NEW PATIENT PAIN DIARY TODAY'S VISIT 05/27/2019 PATIENT DESCRIBES PAIN :ACHING, HAVE IT ALL THE TIME, SHARP, THROBBING, SORE FROM 0-10, WHAT LEVEL IS YOUR PAIN TODAY?7 PRECIPITATING FACTORS REACHING ARMS ABOVE HEAD ALLEVIATING FACTORS NOTHING IMPACT ON FUNCTION LIMITS WHAT HE IS ABLE TO DO PAIN CLINIC PFS, CLERGY, PUBLIC HEALTH REFERRALS PFS REFERRAL NEEDED?NO CLERGY REFERRAL NEEDED?NO PUBLIC HEALTH REFERRAL NEEDED?NO HAS THE PATIENT BEEN EDUCATED REGARDING HIS/HER PLAN OF CARE?YES HAS THE PATIENT BEEN EDUCATED REGARDING PAIN, THE RISK FOR PAIN, THE IMPORTANCE OF EFFECTIVE PAIN MANAGEMENT, AND THE PAIN ASSESSMENT PROCESS?YES ADVANCE DIRECTIVE ADVANCE DIRECTIVE DISCUSSED WITH PATIENT:YES HCP - SAPNA MONROY [phone] 05/27/2019 REVIEWED WITH PT. AD. HOSPITALIZATION/MAJOR DIAGNOSTIC PROCEDURE SEES ABOVE- SURGERIES REVIEW OF SYSTEMS REVIEWED BY: PROVIDER: DONTA ISAAC MD . CONSTITUTIONAL: ANY CHANGE IN YOUR MEDICAL CONDITION? NO . CHILLS NO . FEVER NO . INFECTION: DO YOU HAVE NEW INFECTIONS? NO . DO YOU HAVE HISTORY OF MRSA? NO . MUSCULOSKELETAL: ANY NEW PATTERNS OF PAIN OR NUMBNESS? YES, PAIN IS WORSE TODAY . GASTROENTEROLOGY: ANY NEW CHANGE IN BOWEL CONTROL? NO . GENITOURINARY: ANY NEW CHANGE IN BLADDER CONTROL? NO . IS THERE A CHANCE YOU COULD BE ? NO . HEMATOLOGY/LYMPH: DO YOU TAKE ANY BLOOD THINNERS? (FOR EXAMPLE- COUMADIN, PLAVIX, AGGRENOX, PLATEL, PRADAXA, OR XARELTO) NO . WHEN WAS YOUR LAST DOSE? DATE: TIME: . NEUROLOGY: HAVE YOU FALLEN IN THE PAST 12 MONTHS? NO . ANY NEW EXTREMITY NUMBNESS OR WEAKNESS? NO . CARDIOLOGY: DO YOU HAVE A PACEMAKER OR DEFIBRILLATOR? NO . RESPIRATORY: HAVE YOU BEEN SICK IN THE PAST WEEK? NO . FEVER NO . FLU LIKE SYMPTOMS? NO . COUGH NO . INTEGUMENTARY: DO YOU HAVE ANY RASHES OR OPEN SORES? NO . ALLERGIC/IMMUNO: ARE YOU ALLERGIC TO IV DYE? NO . ANY NEW ALLERGIES? NO . PSYCHIATRIC: DO YOU HAVE THOUGHTS OF HURTING YOURSELF OR SOMEONE ELSE? NO . ARE YOU ABUSED, NEGLECTED, OR IN AN UNSAFE ENVIRONMENT? NO . ENDOCRINOLOGY: ARE YOU DIABETIC? NO . OTHER: DO YOU NEED ANY PRESCRIPTIONS? YES . IF YES, PLEASE LIST: SOMA . ANY NEW PROBLEMS WITH YOUR MEDICATIONS? NO . WHEN DID YOU LAST EAT? ____ . WHEN DID YOU LAST DRINK? ____ . WHAT DID YOU LAST DRINK? ____ . NAME OF PERSON DRIVING YOU HOME? ____ . DO YOU HAVE ANY OTHER QUESTIONS OR CONCERNS YES, WONDERING WHEN HE CAN GET AN INJECTION . EXAMINATION GENERAL EXAMINATION: TELEPHONE ENCOUNTER. PATIENT IS ALERT O X 3 AND COOPERATIVE. MRI OF THE LUMBAR SPINE DONE ON 08/01/2017 SHOWS FACET ARTHROPATHY CHANGES AND DEGENERATIVE DISC DISEASE. ASSESSMENTS BILATERAL SACROILIITIS - M46.1 (PRIMARY) LOW BACK PAIN - M54.5 OTHER CHRONIC PAIN - G89.29 TREATMENT BILATERAL SACROILIITIS CLINICAL NOTES: WE DISCUSSED SEVERAL ISSUES WITH MR. MONROY'S PAIN MANAGEMENT CASE. THE PATIENT WILL CONTINUE WITH HIS CURRENT MEDICATION REGIMEN FOR NOW DUE TO THE CURRENT SITUATION, AND UNDERSTANDS ONCE OUR CLINIC CAN BEGIN PROCEDURES AGAIN WE WILL PROCEED WITH THAT INTERVENTION. HE EXPLAINED THAT HE CAN WAIT. IF THE SITUATION CHANGE HE WILL LET US KNOW. THE PATIENT WILL FOLLOW UP WITH HOUSEKEEPING STAFF YAS RBOERTSON IN SEVERAL WEEKS TO BE SURE HE STILL DOING WELL. TOTAL TIME FOR TODAY'S TELEPHONE ENCOUNTER WAS 12 MINUTES. INSTRUCTIONS WERE GIVEN, QUESTIONS WERE ANSWERED, PATIENT REPORTS UNDERSTANDING AND AGREES WITH THE PLAN. I, PARISH DEAL, DOCUMENTED THE ABOVE INFORMATION ACTING A SCRIBE FOR DR. ISAAC. I HAVE REVIEWED THE ABOVE DOCUMENT, WRITTEN BY PARISH DEAL SCRIBKathy AND I VERIFY THAT IT IS ACCURATE. . OTHERS NOTES: UNABLE TO DO V/S DUE TO TELEPHONE VISIT. PROCEDURE CODES 70724 TELEMEDICINE PHONE E/M BY ROSI 11-20 MIN DISPOSITION & COMMUNICATION FOLLOW UP 2 WEEKS (REASON: F/UP W/ YAS (SHEDULED)) ELECTRONICALLY SIGNED BY DONTA ISAAC MD, MD ON 06/01/2019 AT 05:22 PM EDT DISCLAIMER : THIS IS A VISIT SUMMARY EXTRACTED FROM THE [employer] CHART. IT IS NOT A COPY OF THE [employer] PROGRESS NOTE. YULIET
== END ==
LOC: M PAIN 11:30
PROVIDERS: ATTEND Anesthesiology
DX: M46.1 Sacroiliitis, not elsewhere classified (principal); M54.5 Low back pain; G89.29 Other chronic pain; E55.9 Vitamin D deficiency, unspecified; Z86.59 Personal history of other mental and behavioral disorders; I10 Essential (primary) hypertension; J44.9 Chronic obstructive pulmonary disease, unspecified; F17.210 Nicotine dependence, cigarettes, uncomplicated; Z88.0 Allergy status to penicillin; Z79.891 Long term (current) use of opiate analgesic; Z79.899 Other long term (current) drug therapy

== ENCOUNTER → 2019-06-12 | Outpatient (CLI) | payer BC, OTHER ==
--- NOTE | 2019-06-16 04:13 | ECWPNPC ---
PATIENT NAME: TAMARA MONROY : 1965 GENDER: MALE VISIT DATE: 06/12/2019 DISCHARGE DATE: 06/12/19 1133 VISIT LOCKED DATE TIME: PHYSICIAN: YAS ROBERTSON RESOURCE: YAS ROBERTSON REASON FOR APPOINTMENT 1. BCBS POST SIJ - PAT COMPLETED HISTORY OF PRESENT ILLNESS HISTORY OF PRESENT ILLNESS: PATIENT IS AGREEABLE TO TELEPHONE VISIT TODAY. CONTINUES WITH SEVERE LOW BACK PAIN. WAS ON SCHEDULE FOR BILATERAL SIJ BUT THAT WAS CANCELED DUE TO COVID 19. RATING PAIN LEVEL AN 8/10 VAS. PAIN IS AGGRAVATED BY INCREASED ACTIVITY. PAIN IS RELIEVED SOMEWHAT AT REST. DISCUSSED TREATMENT OPTIONS. PAIN THE PATIENT DESCRIBES THE PAIN... FALL RISK SCREENING: SCREENING :NO FALLS REPORTED IN THE LAST YEAR CURRENT MEDICATIONS TAKING MULTIVITAMINS OTC TABLET 1 TABLET ORALLY ONCE A DAY TAKING CYMBALTA 30 MG CAPSULE DELAYED RELEASE PARTICLES 1 CAPSULE TWICE A DAY ORALLY 90 DAY(S) TAKING LYRICA 300 MG CAPSULE 1 CAPSULE ORALLY BID MDD2 TAKING VITAMIN D (ERGOCALCIFEROL) 63079 UNIT CAPSULE 1 CAPSULE ORALLY ONCE A WEEK (MONDAYS) TAKING BACLOFEN 20 MG TABLET 1 TABLET WITH FOOD OR MILK ORALLY Q6H QID TAKING AMITRIPTYLINE HCL 25 MG TABLET 3 ORALLY ONCE A DAY TAKING AMLODIPINE BESYLATE 5 MG TABLET TAKE 1 TABLET DAILY TAKING IBUPROFEN 800 MG TABLET 1 TABLET ORALLY NEEDED THREE TIMES A DAY TAKING PERCOCET 10-325 MG TABLET 1 TABLET NEEDED ORALLY EVERY 6 HRSMDD4 TAKING GABAPENTIN 300 MG CAPSULE 1 CAPSULE ORALLY THREE TIMES A DAY TAKING NYSTATIN [id number] UNIT/GM CREAM 1 APPLICATION 2G EXTERNALLY TWICE A DAY TO RASH ON GROIN TAKING SOMA 350 MG TABLET 1 TABLET ORALLY Q8H MDD3 TAKING ATORVASTATIN CALCIUM 40 MG TABLET 1 TABLET ORALLY ONCE A DAY TAKING LOSARTAN POTASSIUM 50 MG TABLET 1 TABLET ORALLY ONCE A DAY TAKING MORPHINE SULFATE ER 15 MG TABLET EXTENDED RELEASE 1 TO 2 DIRECTED ORALLY 1 IN AM,2 AT HS MDD3 MEDICATION LIST REVIEWED AND RECONCILED WITH THE PATIENT PAST MEDICAL HISTORY CHRONIC LOW BACK PAIN - DDD RIGHT ARM PAIN - BICEPS TENDON RUPTURE - [facility] - S/P SURGICAL REPAIR 2013 WITH RESIDUAL NUMBNESS AND PAIN - MACROCYTIC ANEMIA PULMONARY NODULES - CHEST CT 09/25/13 - MILD COPD, OLD GRANULOMATOUS DISEASE WITH CALCIFIED 11MM NODULE IN LLL, CALCIFIED LEFT HILAR NODES. 3MM NONCALCIFIED PULMONARY NODULE JUST ADJACENT TO AND CONTINUOS WITH OTHER PULMONARY NODULE. RECOMMEND F/U CT CHEST 09/25. - F/U CT DONE 08/03/15 - CHRONIC CHANGES, STABLE 3 MM NODULE C/W 09/25/13 - NO FURTHER IMAGING NEEDED VITAMIN D DEFICIENCY RIGHT TORN ROTATOR CUFF/ TORN LEFT ROTATOR CUFF DEPRESSION HYPERTENSION BL HAND TREMOR - PER IMAGING AT [facility] - C-SPINE X-RAYS SHOWED SEVERE DEGENERATIVE CHANGES, MRI SHOWED MILD DEGENERATIVE CHANGES. F/U MRI PENDING PER NEUROSURGERY (COMP CASE) - NEUOLOGY DR. 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 2 SON(S) - HEALTHY. FATHER CIRRHOSIS OF LIVER\\NMOTHER HAD BREAST CANCER, BONE CANCER. SOCIAL HISTORY GENERAL: TOBACCO USE ARE YOU A:CURRENT SMOKER ARE YOU INTERESTED IN QUITTING?NOT READY TO QUIT COUNSELED THE PATIENT ON SMOKING EFFECTS, EDUCATION [id number]/30/2020 HOW MANY CIGARETTES A DAY DO YOU SMOKE?6-10 HOW OFTEN DO YOU SMOKE CIGARETTES?EVERY DAY PATIENT COUNSELED ON THE DANGERS OF TOBACCO USE AND URGED TO QUIT:06/11/2019 LATEX QUESTIONNAIRE LATEX ALLERGY : HAVE YOU EVER DEVELOPED ANY TYPE OF REACTION AFTER HANDLING LATEX PRODUCTS SUCH RUBBER GLOVES, CONDOMS, DIAPHRAGMS, BALLOONS, SOCKS, OR UNDERWEAR?NO LATEX ALLERGY : HAVE YOU EVER DEVELOPED ANY TYPE OF REACTION DURING OR AFTER DENTAL APPOINTMENT, VAGINAL/RECTAL EXAMINATION, SURGICAL PROCEDURE, OR ANY OTHER EXPOSURE?NO DATE ASKED : 05/27/2019 LATEX RISK : HAVE YOU EVER HAD ANY DIFFICULTY BREATHING OR HIVES AFTER EATING OR HANDLING ANY FRUITS, OR VEGETABLES; SUCH KIWI, BANANAS, STONE FRUITS, OR CHESTNUTSNO LATEX RISK : DO YOU HAVE A PREVIOUS PERSONAL HISTORY OF MORE THAN NINE SURGERIES, SPINA BIFIDA, OR REPEATED CATHERIZATIONS? NO LATEX RISK : ARE YOU FREQUENTLY EXPOSED TO LATEX PRODUCTS IN YOUR OCCUPATION?NO ALCOHOL SCREENING DID YOU HAVE A DRINK CONTAINING ALCOHOL IN THE PAST YEAR?NO POINTS0 INTERPRETATIONNEGATIVE RECREATIONAL DRUG USE DRUG USE?NO PATIENT DENIES ABUSE OR MISSUSED OF ANY MEDICATION DENIES PATIENT DENIES USE OF ANY ILLEGAL SUBSTANCE INCLUDING MARIJUANA OR COCAINE DENIES CAFFEINE CAFFEINE USE?YES HOW OFTEN AND HOW MUCH? 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 DIET: REGULAR. EXERCISE: NO REGULAR EXERCISE. MARITAL STATUS: . OTHERS AT HOME: SPOUSE. NEW PATIENT PAIN DIARY TODAY'S VISIT 06/11/2019 PATIENT DESCRIBES PAIN :ACHING, HAVE IT ALL THE TIME, SHARP, THROBBING, SORE FROM 0-10, WHAT LEVEL IS YOUR PAIN TODAY?8 PRECIPITATING FACTORS REACHING ARMS ABOVE HEAD ALLEVIATING FACTORS NOTHING IMPACT ON FUNCTION LIMITS WHAT HE IS ABLE TO DO PAIN CLINIC PFS, CLERGY, PUBLIC HEALTH REFERRALS PFS REFERRAL NEEDED?NO CLERGY REFERRAL NEEDED?NO PUBLIC HEALTH REFERRAL NEEDED?NO HAS THE PATIENT BEEN EDUCATED REGARDING HIS/HER PLAN OF CARE?YES HAS THE PATIENT BEEN EDUCATED REGARDING PAIN, THE RISK FOR PAIN, THE IMPORTANCE OF EFFECTIVE PAIN MANAGEMENT, AND THE PAIN ASSESSMENT PROCESS?YES ADVANCE DIRECTIVE ADVANCE DIRECTIVE DISCUSSED WITH PATIENT:YES HCP - SAPNA MONROY [phone] HOSPITALIZATION/MAJOR DIAGNOSTIC PROCEDURE SEES ABOVE- SURGERIES REVIEW OF SYSTEMS REVIEWED BY: PROVIDER: YAS WHYTE . CONSTITUTIONAL: ANY CHANGE IN YOUR MEDICAL CONDITION? NO . CHILLS NO . FEVER NO . INFECTION: DO YOU HAVE NEW INFECTIONS? NO . DO YOU HAVE HISTORY OF MRSA? NO . MUSCULOSKELETAL: ANY NEW PATTERNS OF PAIN OR NUMBNESS? NO . GASTROENTEROLOGY: ANY NEW CHANGE IN BOWEL CONTROL? NO . GENITOURINARY: ANY NEW CHANGE IN BLADDER CONTROL? NO . IS THERE A CHANCE YOU COULD BE ? NO . HEMATOLOGY/LYMPH: DO YOU TAKE ANY BLOOD THINNERS? (FOR EXAMPLE- COUMADIN, PLAVIX, AGGRENOX, PLATEL, PRADAXA, OR XARELTO) NO . WHEN WAS YOUR LAST DOSE? DATE: TIME: . NEUROLOGY: HAVE YOU FALLEN IN THE PAST 12 MONTHS? NO . ANY NEW EXTREMITY NUMBNESS OR WEAKNESS? NO . CARDIOLOGY: DO YOU HAVE A PACEMAKER OR DEFIBRILLATOR? NO . RESPIRATORY: HAVE YOU BEEN SICK IN THE PAST WEEK? NO . FEVER NO . FLU LIKE SYMPTOMS? NO . COUGH NO . INTEGUMENTARY: DO YOU HAVE ANY RASHES OR OPEN SORES? NO . ALLERGIC/IMMUNO: ARE YOU ALLERGIC TO IV DYE? NO . ANY NEW ALLERGIES? NO . PSYCHIATRIC: DO YOU HAVE THOUGHTS OF HURTING YOURSELF OR SOMEONE ELSE? NO . ARE YOU ABUSED, NEGLECTED, OR IN AN UNSAFE ENVIRONMENT? NO . ENDOCRINOLOGY: ARE YOU DIABETIC? NO . OTHER: DO YOU NEED ANY PRESCRIPTIONS? NO . IF YES, PLEASE LIST: ____UNSURE IF HE NEEDS REFILLS - WILL HAVE CHECK AND LET YAS KNOW DURING VISIT . ANY NEW PROBLEMS WITH YOUR MEDICATIONS? NO . WHEN DID YOU LAST EAT? ____ . WHEN DID YOU LAST DRINK? ____ . WHAT DID YOU LAST DRINK? ____ . NAME OF PERSON DRIVING YOU HOME? ____ . DO YOU HAVE ANY OTHER QUESTIONS OR CONCERNS YES, WOULD LIKE SACROILIAC JOINT INJECTION PROCEDURE ONCE ABLE TO IT WAS CANCELLED DUE TO COVID-19 . ASSESSMENTS BILATERAL SACROILIITIS - M46.1 (PRIMARY) TREATMENT BILATERAL SACROILIITIS NOTES: BILAT SIJ. OTHERS NOTES: VITALS NOT OBTAINED DUE TO PHONE VISIT. PRE-SCREENING COMPLETED 06/11/2019 1428. PREVENTIVE MEDICINE PAIN CLINIC TEACHING: PROCEDURE TEACHING PRE PROCEDURE INSTRUCTIONS REVIEWED WITH PATIENT OVER THE PHONE. PRINTED INSTRUCTIONS MAILED TO PATIENT. 06/12/2019 IBAN. DISPOSITION & COMMUNICATION FOLLOW UP POST (REASON: BILAT SIJ ) ELECTRONICALLY SIGNED BY PATO DE LA CRUZ ON 06/15/2019 AT 02:12 PM EDT DISCLAIMER : THIS IS A VISIT SUMMARY EXTRACTED FROM THE [employer] CHART. IT IS NOT A COPY OF THE [employer] PROGRESS NOTE. YULIET
== END ==
LOC: M PAIN 10:30
PROVIDERS: ATTEND Nurse Practitioner Family
DX: M46.1 Sacroiliitis, not elsewhere classified (principal); E55.9 Vitamin D deficiency, unspecified; Z86.59 Personal history of other mental and behavioral disorders; I10 Essential (primary) hypertension; J44.9 Chronic obstructive pulmonary disease, unspecified; F17.210 Nicotine dependence, cigarettes, uncomplicated; Z88.0 Allergy status to penicillin; Z79.891 Long term (current) use of opiate analgesic; Z79.899 Other long term (current) drug therapy

== ENCOUNTER → 2019-06-22 | Outpatient (CLI) | payer OTHER | LOC: M LABSMTC 11:56 | PROVIDERS: ATTEND Anesthesiology | DX: Z01.818 Encounter for other preprocedural examination (principal); Z11.59 Encounter for screening for other viral diseases ==

== ENCOUNTER → 2019-06-24 | Outpatient (CLI) | payer OTHER ==
[~2019-06-24] MED LIST changes: +BUPIVACAINE HCL 0.25% 10ML VIAL As Ordered ONE; +BUPIVACAINE HCL 0.25% 30ML VIAL As Ordered ONE; +TRIAMCINOLONE ACETONIDE SUSP 40 MG/ML VIAL (J3301) As Ordered ONE; +dexameTHASONE 10MG/1ML VIAL PRES.FREE (J1100 PER 1MG) As Ordered ONE; +diazePAM 2 MG TAB As Ordered ONE; +diphenhydrAMINE 25MG CAP As Ordered ONE; +oxyCODONE 5MG TAB As Ordered ONE
--- NOTE | 2019-06-27 02:52 | ECWPNPC ---
PATIENT NAME: TAMARA MONROY : 1965 GENDER: MALE VISIT DATE: 06/24/2019 DISCHARGE DATE: 06/24/19 1529 VISIT LOCKED DATE TIME: PHYSICIAN: DONTA ISAAC MD RESOURCE: DONTA ISAAC MD REASON FOR APPOINTMENT 1. W/C TPI BILAT TRAPEZIUS/SHOULDERS HISTORY OF PRESENT ILLNESS HISTORY OF PRESENT ILLNESS: PAIN THE PATIENT DESCRIBES THE PAIN... FALL RISK SCREENING: SCREENING :NO FALLS REPORTED IN THE LAST YEAR CURRENT MEDICATIONS TAKING MULTIVITAMINS OTC TABLET 1 TABLET ORALLY ONCE A DAY, NOTES: 06/24/19 0600 TAKING CYMBALTA 30 MG CAPSULE DELAYED RELEASE PARTICLES 1 CAPSULE TWICE A DAY ORALLY 90 DAY(S) , NOTES: 06/24/19 06 TAKING LYRICA 300 MG CAPSULE 1 CAPSULE ORALLY BID MDD2, NOTES: 06/24/19599 TAKING VITAMIN D (ERGOCALCIFEROL) 18573 UNIT CAPSULE 1 CAPSULE ORALLY ONCE A WEEK (MONDAYS), NOTES: 06/22/19 TAKING BACLOFEN 20 MG TABLET 1 TABLET WITH FOOD OR MILK ORALLY Q6H QID, NOTES: 06/24/19 0600 TAKING AMITRIPTYLINE HCL 25 MG TABLET 3 ORALLY ONCE A DAY, NOTES: 06/23/19 1800 TAKING AMLODIPINE BESYLATE 5 MG TABLET TAKE 1 TABLET DAILY , NOTES: 06/23/19 1800 TAKING IBUPROFEN 800 MG TABLET 1 TABLET ORALLY NEEDED THREE TIMES A DAY, NOTES: 06/23/19 1800 TAKING GABAPENTIN 300 MG CAPSULE 1 CAPSULE ORALLY THREE TIMES A DAY, NOTES: 06/23/19 1800 TAKING NYSTATIN 009018 UNIT/GM CREAM 1 APPLICATION 2G EXTERNALLY TWICE A DAY TO RASH ON GROIN, NOTES: 06/23/19 1800 TAKING SOMA 350 MG TABLET 1 TABLET ORALLY Q8H MDD3, NOTES: 06/23/19 1800 TAKING ATORVASTATIN CALCIUM 40 MG TABLET 1 TABLET ORALLY ONCE A DAY, NOTES: 06/23/19 1800 TAKING LOSARTAN POTASSIUM 50 MG TABLET 1 TABLET ORALLY ONCE A DAY, NOTES: 06/23/19 1800 TAKING MORPHINE SULFATE ER 15 MG TABLET EXTENDED RELEASE 1 TO 2 DIRECTED ORALLY 1 IN AM,2 AT HS MDD3, NOTES: 06/23/19 1800 TAKING PERCOCET 10-325 MG TABLET 1 TABLET NEEDED ORALLY EVERY 6 HRSMDD4, NOTES: 06/24/19 0600 MEDICATION LIST REVIEWED AND RECONCILED WITH THE PATIENT PAST MEDICAL HISTORY CHRONIC LOW BACK PAIN - DDD RIGHT ARM PAIN - BICEPS TENDON RUPTURE - [facility] - S/P SURGICAL REPAIR 2013 WITH RESIDUAL NUMBNESS AND PAIN - MACROCYTIC ANEMIA PULMONARY NODULES - CHEST CT 09/25/13 - MILD COPD, OLD GRANULOMATOUS DISEASE WITH CALCIFIED 11MM NODULE IN LLL, CALCIFIED LEFT HILAR NODES. 3MM NONCALCIFIED PULMONARY NODULE JUST ADJACENT TO AND CONTINUOS WITH OTHER PULMONARY NODULE. RECOMMEND F/U CT CHEST 09/25. - F/U CT DONE 08/03/15 - CHRONIC CHANGES, STABLE 3 MM NODULE C/W 09/25/13 - NO FURTHER IMAGING NEEDED VITAMIN D DEFICIENCY RIGHT TORN ROTATOR CUFF/ TORN LEFT ROTATOR CUFF DEPRESSION HYPERTENSION BL HAND TREMOR - PER IMAGING AT [facility]-SPINE X-RAYS SHOWED SEVERE DEGENERATIVE CHANGES, MRI SHOWED MILD DEGENERATIVE CHANGES. F/U MRI PENDING PER NEUROSURGERY (COMP CASE) - NEUOLOGY DR. 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 2 SON(S) - HEALTHY. FATHER CIRRHOSIS OF LIVER\\NMOTHER HAD BREAST CANCER, BONE CANCER. SOCIAL HISTORY GENERAL: TOBACCO USE ARE YOU A:CURRENT SMOKER ARE YOU INTERESTED IN QUITTING?NOT READY TO QUIT COUNSELED THE PATIENT ON SMOKING EFFECTS, EDUCATION [id number]/30/2020 HOW MANY CIGARETTES A DAY DO YOU SMOKE?6-10 HOW OFTEN DO YOU SMOKE CIGARETTES?EVERY DAY PATIENT COUNSELED ON THE DANGERS OF TOBACCO USE AND URGED TO QUIT:06/24/2019 LATEX QUESTIONNAIRE LATEX ALLERGY : HAVE YOU EVER DEVELOPED ANY TYPE OF REACTION AFTER HANDLING LATEX PRODUCTS SUCH RUBBER GLOVES, CONDOMS, DIAPHRAGMS, BALLOONS, SOCKS, OR UNDERWEAR?NO LATEX ALLERGY : HAVE YOU EVER DEVELOPED ANY TYPE OF REACTION DURING OR AFTER DENTAL APPOINTMENT, VAGINAL/RECTAL EXAMINATION, SURGICAL PROCEDURE, OR ANY OTHER EXPOSURE?NO LATEX RISK : HAVE YOU EVER HAD ANY DIFFICULTY BREATHING OR HIVES AFTER EATING OR HANDLING ANY FRUITS, OR VEGETABLES; SUCH KIWI, BANANAS, STONE FRUITS, OR CHESTNUTSNO LATEX RISK : DO YOU HAVE A PREVIOUS PERSONAL HISTORY OF MORE THAN NINE SURGERIES, SPINA BIFIDA, OR REPEATED CATHERIZATIONS? NO LATEX RISK : ARE YOU FREQUENTLY EXPOSED TO LATEX PRODUCTS IN YOUR OCCUPATION?NO DATE ASKED : 06/24/2019 ALCOHOL SCREENING DID YOU HAVE A DRINK CONTAINING ALCOHOL IN THE PAST YEAR?NO POINTS0 INTERPRETATIONNEGATIVE RECREATIONAL DRUG USE DRUG USE?NO PATIENT DENIES ABUSE OR MISSUSED OF ANY MEDICATION DENIES PATIENT DENIES USE OF ANY ILLEGAL SUBSTANCE INCLUDING MARIJUANA OR COCAINE DENIES CAFFEINE CAFFEINE USE?YES HOW OFTEN AND HOW MUCH? 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 DIET: REGULAR. EXERCISE: NO REGULAR EXERCISE. MARITAL STATUS: . OTHERS AT HOME: SPOUSE. NEW PATIENT PAIN DIARY TODAY'S VISIT 06/24/2019 PATIENT DESCRIBES PAIN :ACHING, HAVE IT ALL THE TIME, SHARP, THROBBING, SORE FROM 0-10, WHAT LEVEL IS YOUR PAIN TODAY?8 PRECIPITATING FACTORS REACHING ARMS ABOVE HEAD ALLEVIATING FACTORS NOTHING IMPACT ON FUNCTION LIMITS WHAT HE IS ABLE TO DO PAIN CLINIC PFS, CLERGY, PUBLIC HEALTH REFERRALS PFS REFERRAL NEEDED?NO CLERGY REFERRAL NEEDED?NO PUBLIC HEALTH REFERRAL NEEDED?NO HAS THE PATIENT BEEN EDUCATED REGARDING HIS/HER PLAN OF CARE?YES HAS THE PATIENT BEEN EDUCATED REGARDING PAIN, THE RISK FOR PAIN, THE IMPORTANCE OF EFFECTIVE PAIN MANAGEMENT, AND THE PAIN ASSESSMENT PROCESS?YES ADVANCE DIRECTIVE ADVANCE DIRECTIVE DISCUSSED WITH PATIENT:YES AD - SAPNA MONROY [phone] HOSPITALIZATION/MAJOR DIAGNOSTIC PROCEDURE SEES ABOVE- SURGERIES REVIEW OF SYSTEMS REVIEWED BY: PROVIDER: DONTA ISAAC MD . CONSTITUTIONAL: ANY CHANGE IN YOUR MEDICAL CONDITION? NO . CHILLS NO . FEVER NO . INFECTION: DO YOU HAVE NEW INFECTIONS? NO . DO YOU HAVE HISTORY OF MRSA? NO . MUSCULOSKELETAL: ANY NEW PATTERNS OF PAIN OR NUMBNESS? NO . GASTROENTEROLOGY: ANY NEW CHANGE IN BOWEL CONTROL? NO . GENITOURINARY: ANY NEW CHANGE IN BLADDER CONTROL? NO . IS THERE A CHANCE YOU COULD BE ? NO . HEMATOLOGY/LYMPH: DO YOU TAKE ANY BLOOD THINNERS? (FOR EXAMPLE- COUMADIN, PLAVIX, AGGRENOX, PLATEL, PRADAXA, OR XARELTO) NO . WHEN WAS YOUR LAST DOSE? DATE: TIME: . NEUROLOGY: HAVE YOU FALLEN IN THE PAST 12 MONTHS? NO . ANY NEW EXTREMITY NUMBNESS OR WEAKNESS? NO . CARDIOLOGY: DO YOU HAVE A PACEMAKER OR DEFIBRILLATOR? NO . RESPIRATORY: HAVE YOU BEEN SICK IN THE PAST WEEK? NO . FEVER NO . FLU LIKE SYMPTOMS? NO . COUGH NO . INTEGUMENTARY: DO YOU HAVE ANY RASHES OR OPEN SORES? NO . ALLERGIC/IMMUNO: ARE YOU ALLERGIC TO IV DYE? NO . ANY NEW ALLERGIES? NO . PSYCHIATRIC: DO YOU HAVE THOUGHTS OF HURTING YOURSELF OR SOMEONE ELSE? NO . ARE YOU ABUSED, NEGLECTED, OR IN AN UNSAFE ENVIRONMENT? NO . ENDOCRINOLOGY: ARE YOU DIABETIC? NO . OTHER: DO YOU NEED ANY PRESCRIPTIONS? NO . IF YES, PLEASE LIST: ____ . ANY NEW PROBLEMS WITH YOUR MEDICATIONS? NO . WHEN DID YOU LAST EAT? 06/23/19 . WHEN DID YOU LAST DRINK? 06/24/19 0600 . WHAT DID YOU LAST DRINK? ____ . NAME OF PERSON DRIVING YOU HOME? - SAPNA . DO YOU HAVE ANY OTHER QUESTIONS OR CONCERNS NO . VITAL SIGNS WT 164 LBS, HT 69 IN, BMI 24.22 INDEX, BP 135/88 MM HG, HR 86 /MIN, RR 18 /MIN, TEMP 97.5 F, OXYGEN SAT % 99%, SAFE IN ENV? (Y/N) YES, NA INITIALS AW 1300, REVIEWED BY: RUDDY. ASSESSMENTS MYALGIA, OTHER SITE - M79.18 (PRIMARY) PROCEDURES PN WORKMANS' COMP OPINION IN YOUR OPINION, WAS THE INCIDENT THAT THE PATIENT DESCRIBED THE COMPETENT MEDICAL CAUSE OF THIS INJURY/ILLNESS? YES ARE THE PATIENT'S COMPLAINTS CONSISTENT WITH HIS/HER HISTORY OF THE INJURY/ILLNESS? YES IS THE PATIENT'S HISTORY OF THE INJURY/ILLNESS CONSISTENT WITH YOUR OBJECTIVE FINDING? YES WHAT IS THE PERCENTAGE OF TEMPORARY IMPAIRMENT? MARKED = 75% . IS THE PATIENT WORKING? NO . DOCTOR ON SITE: DONTA QURESHI MD PN TRIGGER POINT INJECTION WITH STEROIDS PRE PROCEDURE DIAGNOSIS 1. MYALGIA 2. PAIN AT BILATERAL SHOULDER AREA POST PROCEDURE DIAGNOSIS 1. MYALGIA 2. PAIN AT BILATERAL SHOULDER AREA PROCEDURE TRIGGER POINT INJECTION AT BILATERAL SHOULDER AREA SURGEON DR. DONTA ISAAC PRODUCTION HELPER NONE ANESTHESIA LOCAL PRE PROCEDURE NOTE THE PATIENT HAS A HISTORY OF CHRONIC PAIN AT THE BILATERAL SHOULDER AREA. I EVALUATED THE PATIENT AND REVIEWED THE CHART. THERE IS EVIDENCE OF BANDS OF TISSUE WITH RESTRICTION OF MOVEMENT AND PRESENCE OF TRIGGER POINT AT THE BILATERAL SHOULDER AREA. I WENT OVER THE RISKS, ALTERNATIVES, AND BENEFITS ASSOCIATED WITH THIS PROCEDURE. I DISCUSSED WITH THE PATIENT THAT THE USE OF STEROIDS MAY CONTRIBUTE TO IMMUNOSUPPRESSION OF HIS BODY AGAINST INFECTIONS SUCH THE LANGSTON VIRUS, COVID-19. HE IS AWARE OF THE POTENTIAL COMPLICATIONS ASSOCIATED WITH AN INFECTION OF THIS VIRUS INCLUDING . THE PATIENT WOULD LIKE TO PROCEED AND GIVE CONSENT TO PERFORMED THE PROCEDURE. THE PATIENT DENIES UNEXPLAINABLE WEIGHT LOSS, FEVER, CHILLS, OR NEW CHANGES IN URINARY OR BOWEL CONTROL. THE PATIENT IS COVID-19 NEGATIVE DESCRIPTION OF PROCEDURE THE PATIENT WAS BROUGHT TO THE PROCEDURE ROOM AND PLACED IN THE SITTING POSITION. THE AREA WAS CLEANED WITH ALCOHOL. THE PROCEDURE WAS DONE USING ASEPTIC STERILE TECHNIQUE. I CHECKED LATERALITY AND THE LEVEL WHERE THE PROCEDURE WAS GOING TO BE PERFORMED WITH THE PATIENT AND THE SUPPORTING STAFF AT THE MOMENT OF THE TIME OUT IN THE PROCEDURE ROOM. USING A 25-GAUGE NEEDLE, TRIGGER POINTS WERE INJECTED AT THE RIGHT AND LEFT SHOULDER AREA WITH A TOTAL OF 40 ML OF BUPIVACAINE 0.25% AND DEXAMETHASONE 10 MG. THERE WAS NO EVIDENCE OF BLOOD, PARESTHESIA OR CEREBROSPINAL FLUID DURING THE PROCEDURE. THE PATIENT WAS SENT TO THE RECOVERY ROOM. THE PATIENT WAS MOVING THE EXTREMITIES AND DOING WELL. THERE WAS NO COMPLICATION DURING THE PROCEDURE POST PROCEDURE NOTE THE PATIENT STARTED TO GET RED DURING THE PROCEDURE. I SUGGEST NOT USING DEXAMETHASONE NEXT TIME. I GAVE THE PATIENT 25 MG OF BENADRYL. THE PATIENT WILL BE SEEN IN A FOLLOW UP IN THE NEXT FEW WEEKS. I AM LOOKING FOR LONG LASTING PAIN RELIEF FOR THE PATIENT WITH THIS INJECTION. INSTRUCTIONS WERE GIVEN, QUESTIONS WERE ANSWERED, AND THE PATIENT EXPRESSED UNDERSTANDING AND AGREED WITH THE PLAN. THE PATIENT IS AWARE TO STAY HOME FOR THE NEXT WEEK, IF POSSIBLE, DUE TO COVID-19. ICONCETTAO, DOCUMENTED THE ABOVE INFORMATION ACTING A SCRIBE FOR DR. ISAAC. I HAVE REVIEWED THE ABOVE DOCUMENT, WRITTEN BY CONCETTA ABBOTT, HANDBAG FRAMES INSPECTOR, AND I VERIFY THAT IT IS ACCURATE PROCEDURE CODES 95791 INJ TRIGGER POINT / MUSC DISPOSITION & COMMUNICATION FOLLOW UP F/UP WITH FIRE AND EXPLOSION INVESTIGATOR (REASON: POST-PROCEDURE F/UP- W/C SHOULDER PAIN) ELECTRONICALLY SIGNED BY DONTA ISAAC MD, MD ON 06/26/2019 AT 04:55 PM EDT DISCLAIMER : THIS IS A VISIT SUMMARY EXTRACTED FROM THE [employer] CHART. IT IS NOT A COPY OF THE [employer] PROGRESS NOTE. YULIET
== END ==
LOC: M PAIN 12:45
PROVIDERS: ATTEND Anesthesiology
DX: M79.18 Myalgia, other site (principal); E55.9 Vitamin D deficiency, unspecified; Z86.59 Personal history of other mental and behavioral disorders; I10 Essential (primary) hypertension; J44.9 Chronic obstructive pulmonary disease, unspecified; F17.210 Nicotine dependence, cigarettes, uncomplicated; Z88.0 Allergy status to penicillin; Z88.8 Allergy status to other drugs, medicaments and biological substances; Z79.891 Long term (current) use of opiate analgesic; Z79.899 Other long term (current) drug therapy
CPT/HCPCS: 20552; J1100

== ENCOUNTER → 2019-07-11 | Outpatient (CLI) | payer OTHER ==
[~2019-07-11] MED LIST changes: -BUPIVACAINE HCL 0.25% 10ML VIAL As Ordered ONE; -BUPIVACAINE HCL 0.25% 30ML VIAL As Ordered ONE; -TRIAMCINOLONE ACETONIDE SUSP 40 MG/ML VIAL (J3301) As Ordered ONE; -dexameTHASONE 10MG/1ML VIAL PRES.FREE (J1100 PER 1MG) As Ordered ONE; -diazePAM 2 MG TAB As Ordered ONE; -diphenhydrAMINE 25MG CAP As Ordered ONE; -oxyCODONE 5MG TAB As Ordered ONE
== END ==
LOC: M LABSMTC 11:10
PROVIDERS: ATTEND Anesthesiology
DX: Z03.818 Encounter for observation for suspected exposure to other biological agents ruled out (principal); Z11.59 Encounter for screening for other viral diseases
CPT/HCPCS: C9803; U0003

== ENCOUNTER → 2019-07-13 | Outpatient (CLI) | payer OTHER, BC, MEDICARE ==
--- NOTE | 2019-07-16 02:14 | ECWPNPC ---
PATIENT NAME: TAMARA MONROY : 1965 GENDER: MALE VISIT DATE: 07/13/2019 DISCHARGE DATE: 07/13/19 1247 VISIT LOCKED DATE TIME: PHYSICIAN: YAS ROBERTSON RESOURCE: YAS ROBERTSON REASON FOR APPOINTMENT 1. W/C POST TPI HISTORY OF PRESENT ILLNESS GENERAL: PATIENT IS AGREEABLE TO TELEPHONE VISIT TODAY. THIS IS A POST PROCEDURE FOLLOW-UP. HAD TRIGGER POINT INJECTIONS, BILATERAL SHOULDER ON 06/24/2019. REPORTS MARKED IMPROVEMENT IN PAIN POST PROCEDURE THAT CONTINUES TODAY. THIS IS A WORK RELATED INJURY WITH DATE OF INJURY 10/26/2016. FINDS AMITRIPTYLINE AND LYRICA HELPFUL AT REDUCING HIS PAIN AND KEEPING HIM FUNCTIONAL. DENIES ADVERSE SIDE EFFECTS. -. FALL RISK SCREENING: SCREENING :NO FALLS REPORTED IN THE LAST YEAR PAIN SCREENING: PATIENT HAS A COMPLAINT OF ACUTE OR CHRONIC PAIN :YES LOCATION OF PAIN:BOTH SHOULDERS, LOW BACK INTENSITY OF PAIN (SCALE OF 1 TO 10):5 AVERAGE 3-5/10-BILATERAL SHOULDERS LOWACK 7/10 AVERAGE 3-5/10 WHAT DOES YOUR PAIN FEEL LIKE:CONTINOUS, SHARP, THROBBING DURATION:CONTINOUS, CONSTANT PAIN IS INCREASED BY: ACTIVITY PAIN IS DECREASED BY: REST, INJECTIONS PLAN/GOALS/TREATMENT/INTERVENTION/FOLLOW UP:SEE PLAN NURSING NOTE: -. PAIN CENTER INTAKE QUESTIONS: DO YOU HAVE A HISTORY OF MRSA? :NO DO YOU TAKE A BLOOD THINNERS? :NO DO YOU HAVE ANY BLEEDING DISORDERS? :NO ANY NEW NUMBNESS OR WEAKNESS IN YOUR LEGS OR ARMS? :NO ANY PACEMAKER,DEFIBRILLATOR, OR DORSAL COLUMN STIMULATOR? :NO DO YOU HAVE ANY RASHES OR OPEN SORES? :NO ARE YOU ALLERGIC TO IV DYE? :NO ARE YOU DIABETIC? :NO ANY NEW PROBLEMS WITH YOUR MEDICATIONS? :NO HAVE YOU RECEIVED A VACCINE IN THE PAST 30 DAYS? :NO DO YOU PLAN TO RECEIVE A VACCINE IN THE NEXT 21 DAYS? :NO DO YOU NEED ANY PRESCRIPTION? :NO DO YOU TAKE ANY IMMUNOSUPPRESSIVE MEDICATIONS? :NO CURRENT MEDICATIONS TAKING MULTIVITAMINS OTC TABLET 1 TABLET ORALLY ONCE A DAY TAKING CYMBALTA 30 MG CAPSULE DELAYED RELEASE PARTICLES 1 CAPSULE TWICE A DAY ORALLY 90 DAY(S) TAKING LYRICA 300 MG CAPSULE 1 CAPSULE ORALLY BID MDD2 TAKING VITAMIN D (ERGOCALCIFEROL) 75573 UNIT CAPSULE 1 CAPSULE ORALLY ONCE A WEEK (MONDAYS) TAKING BACLOFEN 20 MG TABLET 1 TABLET WITH FOOD OR MILK ORALLY Q6H QID TAKING AMITRIPTYLINE HCL 25 MG TABLET 3 ORALLY ONCE A DAY TAKING AMLODIPINE BESYLATE 5 MG TABLET TAKE 1 TABLET DAILY TAKING IBUPROFEN 800 MG TABLET 1 TABLET ORALLY NEEDED THREE TIMES A DAY TAKING GABAPENTIN 300 MG CAPSULE 1 CAPSULE ORALLY THREE TIMES A DAY TAKING SOMA 350 MG TABLET 1 TABLET ORALLY Q8H MDD3 TAKING ATORVASTATIN CALCIUM 40 MG TABLET 1 TABLET ORALLY ONCE A DAY TAKING LOSARTAN POTASSIUM 50 MG TABLET 1 TABLET ORALLY ONCE A DAY TAKING NYSTATIN [id number] UNIT/GM CREAM 1 APPLICATION 2G EXTERNALLY TWICE A DAY TO RASH ON GROIN TAKING MORPHINE SULFATE ER 15 MG TABLET EXTENDED RELEASE 1 TO 2 DIRECTED ORALLY 1 IN AM,2 AT HS MDD3 TAKING PERCOCET 10-325 MG TABLET 1 TABLET NEEDED ORALLY EVERY 6 HRSMDD4 MEDICATION LIST REVIEWED AND RECONCILED WITH THE PATIENT PAST MEDICAL HISTORY CHRONIC LOW BACK PAIN - DDD RIGHT ARM PAIN - BICEPS TENDON RUPTURE - [facility] - S/P SURGICAL REPAIR 2013 WITH RESIDUAL NUMBNESS AND PAIN - MACROCYTIC ANEMIA PULMONARY NODULES - CHEST CT 09/25/13 - MILD COPD, OLD GRANULOMATOUS DISEASE WITH CALCIFIED 11MM NODULE IN LLL, CALCIFIED LEFT HILAR NODES. 3MM NONCALCIFIED PULMONARY NODULE JUST ADJACENT TO AND CONTINUOS WITH OTHER PULMONARY NODULE. RECOMMEND F/U CT CHEST 09/25. - F/U CT DONE 08/03/15 - CHRONIC CHANGES, STABLE 3 MM NODULE C/W 09/25/13 - NO FURTHER IMAGING NEEDED VITAMIN D DEFICIENCY RIGHT TORN ROTATOR CUFF/ TORN LEFT ROTATOR CUFF DEPRESSION HYPERTENSION BL HAND TREMOR - PER IMAGING AT [facility]-SPINE X-RAYS SHOWED SEVERE DEGENERATIVE CHANGES, MRI SHOWED MILD DEGENERATIVE CHANGES. F/U MRI PENDING PER NEUROSURGERY (COMP CASE) - NEUOLOGY DR. 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 2 SON(S) - HEALTHY. FATHER CIRRHOSIS OF LIVER\\NMOTHER HAD BREAST CANCER, BONE CANCER. SOCIAL HISTORY GENERAL: TOBACCO USE ARE YOU A:CURRENT SMOKER ARE YOU INTERESTED IN QUITTING?NOT READY TO QUIT COUNSELED THE PATIENT ON SMOKING EFFECTS, EDUCATION [id number]/30/2020 HOW MANY CIGARETTES A DAY DO YOU SMOKE?6-10 HOW OFTEN DO YOU SMOKE CIGARETTES?EVERY DAY PATIENT COUNSELED ON THE DANGERS OF TOBACCO USE AND URGED TO QUIT:07/13/2019 LATEX QUESTIONNAIRE LATEX ALLERGY : HAVE YOU EVER DEVELOPED ANY TYPE OF REACTION AFTER HANDLING LATEX PRODUCTS SUCH RUBBER GLOVES, CONDOMS, DIAPHRAGMS, BALLOONS, SOCKS, OR UNDERWEAR?NO LATEX ALLERGY : HAVE YOU EVER DEVELOPED ANY TYPE OF REACTION DURING OR AFTER DENTAL APPOINTMENT, VAGINAL/RECTAL EXAMINATION, SURGICAL PROCEDURE, OR ANY OTHER EXPOSURE?NO LATEX RISK : HAVE YOU EVER HAD ANY DIFFICULTY BREATHING OR HIVES AFTER EATING OR HANDLING ANY FRUITS, OR VEGETABLES; SUCH KIWI, BANANAS, STONE FRUITS, OR CHESTNUTSNO LATEX RISK : DO YOU HAVE A PREVIOUS PERSONAL HISTORY OF MORE THAN NINE SURGERIES, SPINA BIFIDA, OR REPEATED CATHERIZATIONS? NO LATEX RISK : ARE YOU FREQUENTLY EXPOSED TO LATEX PRODUCTS IN YOUR OCCUPATION?NO DATE ASKED : 07/13/2019 ALCOHOL SCREENING DID YOU HAVE A DRINK CONTAINING ALCOHOL IN THE PAST YEAR?NO POINTS0 INTERPRETATIONNEGATIVE RECREATIONAL DRUG USE DRUG USE?NO PATIENT DENIES ABUSE OR MISSUSED OF ANY MEDICATION DENIES PATIENT DENIES USE OF ANY ILLEGAL SUBSTANCE INCLUDING MARIJUANA OR COCAINE DENIES CAFFEINE CAFFEINE USE?YES HOW OFTEN AND HOW MUCH? 6 CUPS COFFEE/DAY SEXUAL HX HAD SEX IN THE LAST 12 MONTHS (VAGINAL, ORAL, OR ANAL)?NO HAVE YOU EVER HAD AN STD?NO PRESYBETERIAN [id number] PRESYBETERIAN LANGUAGE LANGUAGES SPOKEN:SENEGALESE EDUCATION LEVEL OF EDUCATION:COLLEGE LEARNING BARRIERS / SPECIAL NEEDS CHANGE FROM LAST VISIT?NO BARRIERS TO LEARNING?NO HEARING IMPAIRED?NO VISION IMPAIRED?YES :CORRECTIVE LENSES COGNITIVELY IMPAIRED?NO READINESS TO LEARN?YES LEARNING PREFERENCES?NO LEARNING CAPABILITIES PRESENT?YES EMOTIONAL BARRIERS?NO SPECIAL DEVICES?NO LIAISON ENGINEER NEEDED?NO DOMESTIC VIOLENCE DO YOU FEEL SAFE IN YOUR ENVIRONMENT?YES 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 DIET: REGULAR. EXERCISE: NO REGULAR EXERCISE. MARITAL STATUS: . OTHERS AT HOME: SPOUSE. PAIN CLINIC PFS, CLERGY, PUBLIC HEALTH REFERRALS PFS REFERRAL NEEDED?NO CLERGY REFERRAL NEEDED?NO PUBLIC HEALTH REFERRAL NEEDED?NO HAS THE PATIENT BEEN EDUCATED REGARDING HIS/HER PLAN OF CARE?YES HAS THE PATIENT BEEN EDUCATED REGARDING PAIN, THE RISK FOR PAIN, THE IMPORTANCE OF EFFECTIVE PAIN MANAGEMENT, AND THE PAIN ASSESSMENT PROCESS?YES ADVANCE DIRECTIVE ADVANCE DIRECTIVE DISCUSSED WITH PATIENT:YES HCP - SAPNA MONROY [phone] HOSPITALIZATION/MAJOR DIAGNOSTIC PROCEDURE SEES ABOVE- SURGERIES REVIEW OF SYSTEMS CONSTITUTIONAL: ANY RECENT FEVER OR ILLNESS NO . CHILLS NO . GASTROENTEROLOGY: BOWEL INCONTINENCE NO . ANY NEW CHANGE IN BOWEL CONTROL? NO . ABDOMINAL PAIN NO . CONSTIPATION NO . GENITOURINARY: ANY NEW CHANGE IN BLADDER CONTROL? NO . IS THERE A CHANCE YOU COULD BE ? NO . URINARY INCONTINENCE NO . CARDIOLOGY: CHEST PRESSURE NO . CHEST PAIN NO . RESPIRATORY: COUGH NO . SHORTNESS OF BREATH NO . ASSESSMENTS MYALGIA, OTHER SITE - M79.18 (PRIMARY) TREATMENT MYALGIA, OTHER SITE CONTINUE LYRICA CAPSULE, 300 MG, 1 CAPSULE, ORALLY, BID MDD2 REFILL AMITRIPTYLINE HCL TABLET, 25 MG, 3, ORALLY, ONCE A DAY, 30 DAYS, 90, REFILLS 5 NOTES: CONTINUE HOME EXERCISE AND STRETCHING. CONTINUE CHRONIC PAIN MEDICATION. FOLLOW-UP IS SCHEDULED IN 2 MONTHS. TOTAL TIME SPENT DURING TELEPHONE INTERVIEW WAS APPROXIMATELY 11 MINUTES. OTHERS NOTES: DUE TO VIRTUAL VISIT V/S NO DONE . PROCEDURES PN WORKMANS' COMP OPINION IN YOUR OPINION, WAS THE INCIDENT THAT THE PATIENT DESCRIBED THE COMPETENT MEDICAL CAUSE OF THIS INJURY/ILLNESS? YES ARE THE PATIENT'S COMPLAINTS CONSISTENT WITH HIS/HER HISTORY OF THE INJURY/ILLNESS? YES IS THE PATIENT'S HISTORY OF THE INJURY/ILLNESS CONSISTENT WITH YOUR OBJECTIVE FINDING? YES WHAT IS THE PERCENTAGE OF TEMPORARY IMPAIRMENT? MARKED = 75% IS THE PATIENT WORKING? NO DOCTOR ON SITE: DONTA QURESHI MD DISPOSITION & COMMUNICATION FOLLOW UP 2 MONTHS (REASON: WORKMEN'S COMP SHOULDER PAIN) ELECTRONICALLY SIGNED BY PATO DE LA CRUZ ON 07/15/2019 AT 01:42 PM EDT DISCLAIMER : THIS IS A VISIT SUMMARY EXTRACTED FROM THE [employer] CHART. IT IS NOT A COPY OF THE [employer] PROGRESS NOTE. YULIET
== END ==
LOC: M PAIN 13:30
PROVIDERS: ATTEND Nurse Practitioner Family
DX: M79.18 Myalgia, other site (principal); I10 Essential (primary) hypertension; F17.210 Nicotine dependence, cigarettes, uncomplicated; Z79.891 Long term (current) use of opiate analgesic; Z79.899 Other long term (current) drug therapy; Z88.0 Allergy status to penicillin; Z88.8 Allergy status to other drugs, medicaments and biological substances

== ENCOUNTER → 2019-07-14 | Outpatient (CLI) | payer BC, MEDICARE ==
[~2019-07-14] MED LIST changes: +BUPIVACAINE HCL 0.25% 30ML VIAL As Ordered ONE; +ISOVUE-M 300 61% 15ML VIAL As Ordered ONE; +LIDOCAINE 1% SDV 30ML VIAL As Ordered ONE; +dexameTHASONE 10MG/1ML VIAL PRES.FREE (J1100 PER 1MG) As Ordered ONE; +diazePAM 2 MG TAB As Ordered ONE; +diphenhydrAMINE 25MG CAP As Ordered ONE; +oxyCODONE 5MG TAB As Ordered ONE
--- NOTE | 2019-07-14 23:13 | REP ---
C-ARM VIEWS OF BILATERAL SACROILIAC JOINTS: Two C-arm views of bilateral sacroiliac joints performed during injection by Dr. Bates. Needle is seen overlying each sacroiliac joint inferiorly. 48 seconds fluoroscopy time utilized. Electronically Signed by Scott Cornejo MD 07/15/2019 12:38 P
--- NOTE | 2019-07-15 02:11 | ECWPNPC ---
PATIENT NAME: TAMARA MONROY : 1965 GENDER: MALE VISIT DATE: 07/14/2019 DISCHARGE DATE: 07/14/19 1518 VISIT LOCKED DATE TIME: PHYSICIAN: DONTA ISAAC MD RESOURCE: DONTA ISAAC MD REASON FOR APPOINTMENT 1. BILATERAL SIJ. HISTORY OF PRESENT ILLNESS GENERAL: -. FALL RISK SCREENING: SCREENING :NO FALLS REPORTED IN THE LAST YEAR PAIN SCREENING: PATIENT HAS A COMPLAINT OF ACUTE OR CHRONIC PAIN :YES LOCATION OF PAIN:LOW BACK, LEG(S) INTENSITY OF PAIN (SCALE OF 1 TO 10):8 4-5 AFTER GETTING INJECTION WHAT DOES YOUR PAIN FEEL LIKE:CONTINOUS, SHARP, THROBBING DURATION:CONTINOUS, ALL DAY PAIN IS INCREASED BY:ACTIVITIES PAIN IS DECREASED BY:OTHERS REST AND INJECTIONS PLAN/GOALS/TREATMENT/INTERVENTION/FOLLOW UP:SEE PLAN NURSING NOTE: -. PAIN CENTER INTAKE QUESTIONS: DO YOU HAVE A HISTORY OF MRSA? :NO DO YOU TAKE A BLOOD THINNERS? :NO DO YOU HAVE ANY BLEEDING DISORDERS? :NO ANY NEW NUMBNESS OR WEAKNESS IN YOUR LEGS OR ARMS? :NO ANY PACEMAKER,DEFIBRILLATOR, OR DORSAL COLUMN STIMULATOR? :NO DO YOU HAVE ANY RASHES OR OPEN SORES? :NO ARE YOU ALLERGIC TO IV DYE? :NO ARE YOU DIABETIC? :NO ANY NEW PROBLEMS WITH YOUR MEDICATIONS? :NO HAVE YOU RECEIVED A VACCINE IN THE PAST 30 DAYS? :NO DO YOU PLAN TO RECEIVE A VACCINE IN THE NEXT 21 DAYS? :NO ANY HISTORY OF SEIZURES? :NO ANY HISTORY OF CARDIAC ISSUES OR EVENTS? :NO DO YOU HAVE SLEEP APNEA? :NO ANY RECENT HEAD INJURY? :NO DO YOU HAVE ANY NEW INFECTIONS? :NO WHEN DID YOU LAST EAT? : -07/13/19 WHEN DID YOU LAST DRINK? : -07/14/19 0600 WHAT DID YOU LAST DRINK? : -BLACK COFFEE NAME OF PERSON DRIVING YOU HOME? : -SHARON DO YOU HAVE ANY OTHER QUESTIONS OR CONCERNS? : - CURRENT MEDICATIONS TAKING MULTIVITAMINS OTC TABLET 1 TABLET ORALLY ONCE A DAY, NOTES: 07/14/19 TAKING CYMBALTA 30 MG CAPSULE DELAYED RELEASE PARTICLES 1 CAPSULE TWICE A DAY ORALLY 90 DAY(S) , NOTES: 07/14/19 TAKING VITAMIN D (ERGOCALCIFEROL) 27995 UNIT CAPSULE 1 CAPSULE ORALLY ONCE A WEEK (MONDAYS), NOTES: SATURDAY TAKING BACLOFEN 20 MG TABLET 1 TABLET WITH FOOD OR MILK ORALLY Q6H QID, NOTES: 07/14/19 TAKING AMLODIPINE BESYLATE 5 MG TABLET TAKE 1 TABLET DAILY , NOTES: 07/14/19 TAKING IBUPROFEN 800 MG TABLET 1 TABLET ORALLY NEEDED THREE TIMES A DAY, NOTES: 07/14/19 TAKING GABAPENTIN 300 MG CAPSULE 1 CAPSULE ORALLY THREE TIMES A DAY, NOTES: 07/14/19 TAKING SOMA 350 MG TABLET 1 TABLET ORALLY Q8H MDD3, NOTES: 07/14/19 TAKING ATORVASTATIN CALCIUM 40 MG TABLET 1 TABLET ORALLY ONCE A DAY, NOTES: 07/14/19 TAKING LOSARTAN POTASSIUM 50 MG TABLET 1 TABLET ORALLY ONCE A DAY, NOTES: 07/14/19 TAKING NYSTATIN [id number] UNIT/GM CREAM 1 APPLICATION 2G EXTERNALLY TWICE A DAY TO RASH ON GROIN, NOTES: 07/14/19 TAKING MORPHINE SULFATE ER 15 MG TABLET EXTENDED RELEASE 1 TO 2 DIRECTED ORALLY 1 IN AM,2 AT HS MDD3, NOTES: 07/14/19 TAKING PERCOCET 10-325 MG TABLET 1 TABLET NEEDED ORALLY EVERY 6 HRSMDD4, NOTES: 07/14/19 TAKING LYRICA 300 MG CAPSULE 1 CAPSULE ORALLY BID MDD2, NOTES: 07/14/19 TAKING AMITRIPTYLINE HCL 25 MG TABLET 3 ORALLY ONCE A DAY, NOTES: 07/14/19 MEDICATION LIST REVIEWED AND RECONCILED WITH THE PATIENT PAST MEDICAL HISTORY CHRONIC LOW BACK PAIN - DDD RIGHT ARM PAIN - BICEPS TENDON RUPTURE - [facility] - S/P SURGICAL REPAIR 2013 WITH RESIDUAL NUMBNESS AND PAIN - MACROCYTIC ANEMIA PULMONARY NODULES - CHEST CT 09/25/13 - MILD COPD, OLD GRANULOMATOUS DISEASE WITH CALCIFIED 11MM NODULE IN LLL, CALCIFIED LEFT HILAR NODES. 3MM NONCALCIFIED PULMONARY NODULE JUST ADJACENT TO AND CONTINUOS WITH OTHER PULMONARY NODULE. RECOMMEND F/U CT CHEST 09/25. - F/U CT DONE 08/03/15 - CHRONIC CHANGES, STABLE 3 MM NODULE C/W 09/25/13 - NO FURTHER IMAGING NEEDED VITAMIN D DEFICIENCY RIGHT TORN ROTATOR CUFF/ TORN LEFT ROTATOR CUFF DEPRESSION HYPERTENSION BL HAND TREMOR - PER IMAGING AT [facility] - C-SPINE X-RAYS SHOWED SEVERE DEGENERATIVE CHANGES, MRI SHOWED MILD DEGENERATIVE CHANGES. F/U MRI PENDING PER NEUROSURGERY (COMP CASE) - NEUOLOGY DR. 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 2 SON(S) - HEALTHY. FATHER CIRRHOSIS OF LIVER\\NMOTHER HAD BREAST CANCER, BONE CANCER. SOCIAL HISTORY GENERAL: TOBACCO USE ARE YOU A:CURRENT SMOKER HOW OFTEN DO YOU SMOKE CIGARETTES?EVERY DAY HOW MANY CIGARETTES A DAY DO YOU SMOKE?6-10 ARE YOU INTERESTED IN QUITTING?NOT READY TO QUIT PATIENT COUNSELED ON THE DANGERS OF TOBACCO USE AND URGED TO QUIT:07/13/2019 COUNSELED THE PATIENT ON SMOKING EFFECTS, EDUCATION [id number]/2020 LATEX QUESTIONNAIRE LATEX ALLERGY : HAVE YOU EVER DEVELOPED ANY TYPE OF REACTION AFTER HANDLING LATEX PRODUCTS SUCH RUBBER GLOVES, CONDOMS, DIAPHRAGMS, BALLOONS, SOCKS, OR UNDERWEAR?NO LATEX ALLERGY : HAVE YOU EVER DEVELOPED ANY TYPE OF REACTION DURING OR AFTER DENTAL APPOINTMENT, VAGINAL/RECTAL EXAMINATION, SURGICAL PROCEDURE, OR ANY OTHER EXPOSURE?NO DATE ASKED : 07/13/2019 LATEX RISK : HAVE YOU EVER HAD ANY DIFFICULTY BREATHING OR HIVES AFTER EATING OR HANDLING ANY FRUITS, OR VEGETABLES; SUCH KIWI, BANANAS, STONE FRUITS, OR CHESTNUTSNO LATEX RISK : DO YOU HAVE A PREVIOUS PERSONAL HISTORY OF MORE THAN NINE SURGERIES, SPINA BIFIDA, OR REPEATED CATHERIZATIONS? NO LATEX RISK : ARE YOU FREQUENTLY EXPOSED TO LATEX PRODUCTS IN YOUR OCCUPATION?NO ALCOHOL SCREENING DID YOU HAVE A DRINK CONTAINING ALCOHOL IN THE PAST YEAR?NO POINTS0 INTERPRETATIONNEGATIVE RECREATIONAL DRUG USE DRUG USE?NO PATIENT DENIES ABUSE OR MISSUSED OF ANY MEDICATION DENIES PATIENT DENIES USE OF ANY ILLEGAL SUBSTANCE INCLUDING MARIJUANA OR COCAINE DENIES CAFFEINE CAFFEINE USE?YES HOW OFTEN AND HOW MUCH? 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 EXERCISE: NO REGULAR EXERCISE. MARITAL STATUS: . OTHERS AT HOME: SPOUSE. PAIN CLINIC PFS, CLERGY, PUBLIC HEALTH REFERRALS PFS REFERRAL NEEDED?NO CLERGY REFERRAL NEEDED?NO PUBLIC HEALTH REFERRAL NEEDED?NO HAS THE PATIENT BEEN EDUCATED REGARDING HIS/HER PLAN OF CARE?YES HAS THE PATIENT BEEN EDUCATED REGARDING PAIN, THE RISK FOR PAIN, THE IMPORTANCE OF EFFECTIVE PAIN MANAGEMENT, AND THE PAIN ASSESSMENT PROCESS?YES ADVANCE DIRECTIVE ADVANCE DIRECTIVE DISCUSSED WITH PATIENT:YES HCP - SAPNA MONROY [phone] HOSPITALIZATION/MAJOR DIAGNOSTIC PROCEDURE SEES ABOVE- SURGERIES VITAL SIGNS WT 162.2 LBS, HT 69 IN, BMI 23.95 INDEX, BP 112/85 MM HG, HR 107 /MIN, RR 18 /MIN, TEMP 98.3 F, OXYGEN SAT % 95%, SAFE IN ENV? (Y/N) Y, NA INITIALS AW 1252, REVIEWED BY: ELFEGO. EXAMINATION GENERAL EXAMINATION: THE PATIENT IS ALERT, ORIENTED TIMES THREE AND COOPERATIVE. HEART SHOWS REGULAR RHYTHM, NO MURMURS AND NO GALLOPS. LUNGS ARE CLEAR TO AUSCULTATION. ASSESSMENTS SACROILIITIS - M46.1 (PRIMARY) SACROILIAC JOINT DYSFUNCTION - M53.3 TREATMENT SACROILIITIS [facility] FLUORO GUIDANCE (PAIN)[id number] PROCEDURES PAIN NURSING RECORD PRE-PROCEDURE PRE-PROCEDURE ORAL MEDICATIONS BENADRYL 25MG PO 1404 VERSED 2 MG PO 1415 EM OXYCODONE 10 MG PO 1415 EM PROCEDURE IN ROOM 1430, PHYSICIAN IN ROOM 1445, START 1448, FINISH 1456, PHYSICIAN OUT OF ROOM 1457, OUT OF ROOM 1505, STEROID DEXAMETHASONE 10MG, O2 RA, ECG NORMAL SINUS, PATIENT SHIELDED YES, SAFETY STRAP YES, PREP CHLORAPREP EM, IV INFUSED NA, DRESSING TEGADERM LOC: 1. ALERT, ORIENTED RESP: 1. REGULAR, NO DYSPNEA COLOR: 1. PINK SKIN: 1. WARM, DRY POSITION: 1. PRONE VITALS: 1440 118/62 83 16 96% 1450 121/84 80 16 96% 1500 125/87 81 16 96% 1512 139/89 88 18 97% DISCHARGE: POST PAIN 04/20, DRESSING SITE BILAT LOW BACK CLEAN AND DRY TEGADERM, IV NA, GAIT AMBULATING, TEACHING COMPLETED, PATIENT ACKNOWLEDGES UNDERSTANDING YES, PATIENT DISCHARGED AT 07/14/19 @ 1520 EM PN SI PRE PROCEDURE DIAGNOSIS SACROILIITIS, SACROILIAC JOINT DYSFUNCTION POST PROCEDURE DIAGNOSIS SACROILIITIS, SACROILIAC JOINT DYSFUNCTION PROCEDURE BILATERAL SACROILIAC JOINT BLOCK SURGEON DR. DONTA ISAAC GARMENT SEWING MACHINE OPERATOR NONE ANESTHESIA LOCAL PRE PROCEDURE NOTE THE PATIENT WITH HISTORY OF CHRONIC LOW BACK PAIN. I EVALUATED THE PATIENT AND REVIEWED THE CHART. I WENT OVER THE RISKS, ALTERNATIVES, AND BENEFITS ASSOCIATED WITH THIS PROCEDURE. I DISCUSSED THAT THE USE OF STEROIDS MAY CONTRIBUTE TO IMMUNOSUPPRESSION OF THE PATIENT'S BODY AGAINST INFECTIONS SUCH THE LANGSTON VIRUS, COVID-19. THE PATIENT IS AWARE OF THE POTENTIAL COMPLICATIONS ASSOCIATED WITH AN INFECTION OF THIS VIRUS INCLUDING . THE PATIENT WOULD LIKE TO PROCEED AND GAVE CONSENT TO PERFORM THE PROCEDURE. THE PATIENT DENIES UNEXPLAINABLE WEIGHT LOSS, FEVER, CHILLS, OR NEW CHANGES IN URINARY OR BOWEL CONTROL. THE PATIENT IS COVID-19 NEGATIVE DESCRIPTION OF PROCEDURE THE PATIENT WAS BROUGHT TO THE PROCEDURE ROOM AND PLACED IN THE PRONE POSITION. THE LUMBOSACRAL AREA WAS CLEANED WITH CHLORAPREP SOLUTION AND DRAPED ASEPTICALLY. THE PROCEDURE WAS DONE UNDER STERILE CONDITIONS. I CHECKED LATERALITY AND THE LEVEL WHERE THE PROCEDURE WAS GOING TO BE PERFORMED WITH THE PATIENT AND THE SUPPORTING STAFF AT THE MOMENT OF THE TIME OUT IN THE PROCEDURE ROOM. UNDER FLUOROSCOPIC GUIDANCE, TARGET POINT WAS SELECTED AT THE LOWER BORDER OF THE RIGHT AND LEFT SACROILIAC JOINT. TARGET POINT WAS SELECTED AFTER MEDIAL ROTATION AND TILT OF THE MAGNIFIER OF THE C-ARM. LIDOCAINE WAS USED TO NUMB THE SKIN AND SUBCUTANEOUS TISSUE BELOW IT. A SPINAL NEEDLE, 22-GAUGE, WAS ADVANCED UNDER FLUOROSCOPIC GUIDANCE AND FOLLOWING PATIENT FEEDBACK UNTIL THE TARGET AREA WAS TOUCHED. THE POSITION OF THE NEEDLE WAS VERIFIED WITH AP AND LATERAL VIEWS. AFTER PROPER POSITION OF THE NEEDLE WAS ACHIEVED, ISOVUE M DYE 30%, 0.25 ML, WAS INJECTED SHOWING SPREAD OF THE DYE. THEN, A SOLUTION OF 10 MG OF DEXAMETHASONE WAS INJECTED IN EACH JOINT WITH 3 ML OF BUPIVACAINE 0.125%. THERE WAS NO EVIDENCE OF BLOOD, PARESTHESIA OR CEREBROSPINAL FLUID DURING THE PROCEDURE. THE PATIENT WAS SENT TO THE RECOVERY ROOM. THE PATIENT WAS MOVING THE EXTREMITIES AND DOING WELL. THERE WAS NO COMPLICATION DURING THE PROCEDURE. FLUOROSCOPY TIME WAS 48 SECONDS POST PROCEDURE NOTE THE PROCEDURE DONE WAS DISCUSSED WITH THE PATIENT. THE PATIENT WILL BE SEEN IN A FOLLOW UP IN THE NEXT FEW WEEKS. I AM LOOKING FOR LONG LASTING PAIN RELIEF FOR THE PATIENT WITH THIS INTERVENTION. INSTRUCTIONS WERE GIVEN, QUESTIONS WERE ANSWERED, AND THE PATIENT EXPRESSED UNDERSTANDING AND AGREES WITH THE PLAN. THE PATIENT IS AWARE TO STAY HOME FOR THE NEXT WEEK, IF POSSIBLE, DUE TO COVID-19. I, CONCETTA ABBOTT, DOCUMENTED THE ABOVE INFORMATION ACTING A SCRIBE FOR DR. ISAAC. I HAVE REVIEWED THE ABOVE DOCUMENT, WRITTEN BY CONCETTA ABBOTT, GLASS CURVATURE GAUGER, AND I VERIFY THAT IT IS ACCURATE PROCEDURE CODES 38023 INJECT SACROILIAC JOINT, MODIFIERS: 50 DISPOSITION & COMMUNICATION FOLLOW UP F/UP WITH EXECUTIVE COMMUNICATIONS MANAGER (REASON: POST MICHELLE SIJ) ELECTRONICALLY SIGNED BY DONTA ISAAC MD, ON 07/14/2019 AT 04:46 PM EDT DISCLAIMER : THIS IS A VISIT SUMMARY EXTRACTED FROM THE [employer] CHART. IT IS NOT A COPY OF THE [employer] PROGRESS NOTE. YULIET
== END ==
LOC: M PAIN 12:45
PROVIDERS: ATTEND Anesthesiology
DX: M46.1 Sacroiliitis, not elsewhere classified (principal); M53.3 Sacrococcygeal disorders, not elsewhere classified; F17.210 Nicotine dependence, cigarettes, uncomplicated; Z79.891 Long term (current) use of opiate analgesic; Z79.899 Other long term (current) drug therapy; Z88.0 Allergy status to penicillin; Z88.8 Allergy status to other drugs, medicaments and biological substances
CPT/HCPCS: G0260; J1100; Q9967

== ENCOUNTER 2019-08-01 16:21 | Emergency (ER) | payer BC, MEDICARE ==
[~2019-08-01] VITALS: Ht 172.7 cm; Wt 75.1 kg
[~2019-08-01 16:21] MED LIST changes: -BUPIVACAINE HCL 0.25% 30ML VIAL As Ordered ONE; -ISOVUE-M 300 61% 15ML VIAL As Ordered ONE; -LIDOCAINE 1% SDV 30ML VIAL As Ordered ONE; -dexameTHASONE 10MG/1ML VIAL PRES.FREE (J1100 PER 1MG) As Ordered ONE; -diazePAM 2 MG TAB As Ordered ONE; -diphenhydrAMINE 25MG CAP As Ordered ONE; -oxyCODONE 5MG TAB As Ordered ONE
[2019-08-01] MEDS ORDERED: LOSA50TA88 PO (16:31)
--- NOTE | 2019-08-01 16:58 | ECGEPIP ---
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
[2019-08-01] MEDS ORDERED: ASPIRIN 325 MG TAB PO ONE (17:00)
[2019-08-01 17:03] LABS: BASO % 0.6 % (0.0-1.0); EOS # 0.1 10^3/uL (0.0-0.5); EOS % 2.1 % (0.0-3.0); HEMATOCRIT 35.9 % (42.0-52.0); LYMPH # 1.9 10^3/uL (1.5-5.0); LYMPH % 30.2 % (24.0-44.0); MEAN CORPUSCULAR HEMOGLOBIN 32.8 pg (27.0-33.0); MEAN CORPUSCULAR HGB CONC 36.2 g/dl (32.0-36.5); MEAN CORPUSCULAR VOLUME 90.7 fl (80.0-96.0); MONO # 0.5 10^3/uL (0.0-0.8); MONO % 7.1 % (0.0-5.0); NEUTROPHILS # 3.8 10^3/uL (1.5-8.5); NEUTROPHILS % 59.7 % (36.0-66.0); PLATELET COUNT, AUTOMATED 229 10^3/uL (150-450); RED BLOOD COUNT 3.96 10^6/uL (4.30-6.10); WHITE BLOOD COUNT 6.3 10^3/uL (4.0-10.0)
--- NOTE | 2019-08-01 17:15 | REP ---
Portable chest x-ray: Single view. History: Chest pain. No comparison study. Findings: EKG monitoring electrodes overlie the chest. There is a granulomatous calcification in the left base. No infiltrate is seen. The pleural angles are sharp. Pulmonary vasculature is not increased. No significant bony abnormality. Impression: No active disease. Electronically Signed by Jonathan Nichols MD 08/01/2019 05:07 P
[2019-08-01 17:28] LABS: BLOOD UREA NITROGEN 8 MG/DL (7-18); CALCIUM LEVEL 8.2 MG/DL (8.5-10.1); CARBON DIOXIDE LEVEL 26 MEQ/L (21-32); CHLORIDE LEVEL 99 MEQ/L (98-107); CREATININE FOR GFR 0.89 MG/DL (0.70-1.30); GLOMERULAR FILTRATION RATE > 60.0 (>56); GLUCOSE, FASTING 133 MG/DL (70-100); POTASSIUM SERUM 4.1 MEQ/L (3.5-5.1); SODIUM LEVEL 136 MEQ/L (136-145)
[2019-08-01 18:15] VITALS: BP 142/84
== END 2019-08-01 18:17 | disposition home or self-care (01) ==
LOC: M ED 16:21
DX: F41.9 Anxiety disorder, unspecified (principal); I10 Essential (primary) hypertension; J44.9 Chronic obstructive pulmonary disease, unspecified; F17.200 Nicotine dependence, unspecified, uncomplicated; Z88.0 Allergy status to penicillin; Z79.899 Other long term (current) drug therapy

== ENCOUNTER → 2019-08-07 | Outpatient (CLI) | payer BC, MEDICARE ==
[~2019-08-07] MED LIST changes: +LOSA50TA88 PO
--- NOTE | 2019-08-11 01:54 | ECWPNPC ---
PATIENT NAME: TAMARA MONROY : 1965 GENDER: MALE VISIT DATE: 08/07/2019 DISCHARGE DATE: 08/07/19 1346 VISIT LOCKED DATE TIME: PHYSICIAN: YAS ROBERTSON RESOURCE: YAS ROBERTSON REASON FOR APPOINTMENT 1. POST SIJ [phone] PAT DONE HISTORY OF PRESENT ILLNESS GENERAL: PATIENT IS AGREEABLE TO TELEPHONE VISIT TODAY. THIS IS A POST PROCEDURE FOLLOW-UP. HAD BILATERAL SIJ INJECTION ON 07/14/2019. REPORTING MARKED REDUCTION IN PAIN THAT CONTINUES TODAY. DISCUSSED MEDICATION AND TREATMENT PLAN. -. FALL RISK SCREENING: SCREENING :NO FALLS REPORTED IN THE LAST YEAR PAIN SCREENING: PATIENT HAS A COMPLAINT OF ACUTE OR CHRONIC PAIN :YES LOCATION OF PAIN:LOW BACK INTENSITY OF PAIN (SCALE OF 1 TO 10):4 WHAT DOES YOUR PAIN FEEL LIKE:ACHING, CONTINOUS NURSING NOTE: -. PAIN CENTER INTAKE QUESTIONS: NOTES: PT CONTINUES TO HAVE RELIEF FROM INJECTION, PT STATES THAT HE WENT TO ED DUE TO WATER RETENTION IN LEGS AND ARMS, PT HAS APPOINTMENT TO EVALUATE STATUS OF HEART.. DO YOU HAVE A HISTORY OF MRSA? :NO DO YOU TAKE A BLOOD THINNERS? :NO DO YOU HAVE ANY BLEEDING DISORDERS? :NO ANY NEW NUMBNESS OR WEAKNESS IN YOUR LEGS OR ARMS? :NO ANY PACEMAKER,DEFIBRILLATOR, OR DORSAL COLUMN STIMULATOR? :NO DO YOU HAVE ANY RASHES OR OPEN SORES? :NO ARE YOU ALLERGIC TO IV DYE? :NO ARE YOU DIABETIC? :NO ANY NEW PROBLEMS WITH YOUR MEDICATIONS? :NO HAVE YOU RECEIVED A VACCINE IN THE PAST 30 DAYS? :NO DO YOU PLAN TO RECEIVE A VACCINE IN THE NEXT 21 DAYS? :NO DO YOU NEED ANY PRESCRIPTION? :NO DO YOU TAKE ANY IMMUNOSUPPRESSIVE MEDICATIONS? :NO IS THERE A CHANCE YOU COULD BE ? :NO ARE YOU BREAST FEEDING? :NO CURRENT MEDICATIONS TAKING MULTIVITAMINS OTC TABLET 1 TABLET ORALLY ONCE A DAY TAKING CYMBALTA 30 MG CAPSULE DELAYED RELEASE PARTICLES 1 CAPSULE TWICE A DAY ORALLY 90 DAY(S) TAKING VITAMIN D (ERGOCALCIFEROL) 02207 UNIT CAPSULE 1 CAPSULE ORALLY ONCE A WEEK (MONDAYS) TAKING BACLOFEN 20 MG TABLET 1 TABLET WITH FOOD OR MILK ORALLY Q6H QID TAKING IBUPROFEN 800 MG TABLET 1 TABLET ORALLY NEEDED THREE TIMES A DAY TAKING GABAPENTIN 300 MG CAPSULE 1 CAPSULE ORALLY THREE TIMES A DAY TAKING SOMA 350 MG TABLET 1 TABLET ORALLY Q8H MDD3 TAKING ATORVASTATIN CALCIUM 40 MG TABLET 1 TABLET ORALLY ONCE A DAY TAKING LOSARTAN POTASSIUM 50 MG TABLET 1 TABLET ORALLY ONCE A DAY TAKING NYSTATIN [id number] UNIT/GM CREAM 1 APPLICATION 2G EXTERNALLY TWICE A DAY TO RASH ON GROIN TAKING PERCOCET 10-325 MG TABLET 1 TABLET NEEDED ORALLY EVERY 6 HRSMDD4 TAKING AMITRIPTYLINE HCL 25 MG TABLET 3 ORALLY ONCE A DAY TAKING LYRICA 300 MG CAPSULE 1 CAPSULE ORALLY BID MDD2 TAKING MORPHINE SULFATE ER 15 MG TABLET EXTENDED RELEASE 1 TO 2 DIRECTED ORALLY 1 IN AM,2 AT HS MDD3 TAKING PROPRANOLOL HCL 10 MG TABLET 1 TABLET ORALLY TWICE A DAY TAKING CHLORTHALIDONE 25 MG TABLET 1 TABLET IN THE MORNING WITH FOOD ORALLY ONCE A DAY MEDICATION LIST REVIEWED AND RECONCILED WITH THE PATIENT PAST MEDICAL HISTORY CHRONIC LOW BACK PAIN - DDD RIGHT ARM PAIN - BICEPS T[facility]ON [facility] - S/P SURGICAL REPAIR 2013 WITH RESIDUAL NUMBNESS AND PAIN - MACROCYTIC ANEMIA PULMONARY NODULES - CHEST CT 09/25/13 - MILD COPD, OLD GRANULOMATOUS DISEASE WITH CALCIFIED 11MM NODULE IN LLL, CALCIFIED LEFT HILAR NODES. 3MM NONCALCIFIED PULMONARY NODULE JUST ADJACENT TO AND CONTINUOS WITH OTHER PULMONARY NODULE. RECOMMEND F/U CT CHEST 09/25. - F/U CT DONE 08/03/15 - CHRONIC CHANGES, STABLE 3 MM NODULE C/W 09/25/13 - NO FURTHER IMAGING NEEDED VITAMIN D DEFICIENCY RIGHT TORN ROTATOR CUFF/ TORN LEFT ROTATOR CUFF DEPRESSION HYPERTENSION BL HAND TREMOR - PER [facility]AGING AT [facility]-SPINE X-RAYS SHOWED SEVERE DEGENERATIVE CHANGES, MRI SHOWED MILD DEGENERATIVE CHANGES. F/U MRI PENDING PER NEUROSURGERY (COMP CASE) - NEUOLOGY DR. 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 2 SON(S) - HEALTHY. FATHER CIRRHOSIS OF LIVER\\NMOTHER HAD BREAST CANCER, BONE CANCER. SOCIAL HISTORY GENERAL: TOBACCO USE ARE YOU A:CURRENT SMOKER ARE YOU INTERESTED IN QUITTING?NOT READY TO QUIT COUNSELED THE PATIENT ON SMOKING EFFECTS, EDUCATION [id number]/30/2020 HOW MANY CIGARETTES A DAY DO YOU SMOKE?6-10 HOW OFTEN DO YOU SMOKE CIGARETTES?EVERY DAY PATIENT COUNSELED ON THE DANGERS OF TOBACCO USE AND URGED TO QUIT:08/06/2019 LATEX QUESTIONNAIRE LATEX ALLERGY : HAVE YOU EVER DEVELOPED ANY TYPE OF REACTION AFTER HANDLING LATEX PRODUCTS SUCH RUBBER GLOVES, CONDOMS, DIAPHRAGMS, BALLOONS, SOCKS, OR UNDERWEAR?NO LATEX ALLERGY : HAVE YOU EVER DEVELOPED ANY TYPE OF REACTION DURING OR AFTER DENTAL APPOINTMENT, VAGINAL/RECTAL EXAMINATION, SURGICAL PROCEDURE, OR ANY OTHER EXPOSURE?NO LATEX RISK : HAVE YOU EVER HAD ANY DIFFICULTY BREATHING OR HIVES AFTER EATING OR HANDLING ANY FRUITS, OR VEGETABLES; SUCH KIWI, BANANAS, STONE FRUITS, OR CHESTNUTSNO LATEX RISK : DO YOU HAVE A PREVIOUS PERSONAL HISTORY OF MORE THAN NINE SURGERIES, SPINA BIFIDA, OR REPEATED CATHERIZATIONS? NO LATEX RISK : ARE YOU FREQUENTLY EXPOSED TO LATEX PRODUCTS IN YOUR OCCUPATION?NO DATE ASKED : 08/06/2019 ALCOHOL SCREENING DID YOU HAVE A DRINK CONTAINING ALCOHOL IN THE PAST YEAR?NO POINTS0 INTERPRETATIONNEGATIVE RECREATIONAL DRUG USE DRUG USE?NO PATIENT DENIES ABUSE OR MISSUSED OF ANY MEDICATION DENIES PATIENT DENIES USE OF ANY ILLEGAL SUBSTANCE INCLUDING MARIJUANA OR COCAINE DENIES CAFFEINE CAFFEINE USE?YES HOW OFTEN AND HOW MUCH? 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 DIET: REGULAR. EXERCISE: NO REGULAR EXERCISE. MARITAL STATUS: . OTHERS AT HOME: SPOUSE. PAIN CLINIC PFS, CLERGY, PUBLIC HEALTH REFERRALS PFS REFERRAL NEEDED?NO CLERGY REFERRAL NEEDED?NO PUBLIC HEALTH REFERRAL NEEDED?NO HAS THE PATIENT BEEN EDUCATED REGARDING HIS/HER PLAN OF CARE?YES HAS THE PATIENT BEEN EDUCATED REGARDING PAIN, THE RISK FOR PAIN, THE IMPORTANCE OF EFFECTIVE PAIN MANAGEMENT, AND THE PAIN ASSESSMENT PROCESS?YES ADVANCE DIRECTIVE ADVANCE DIRECTIVE DISCUSSED WITH PATIENT:YES HCP - SAPNA MONROY [phone] HOSPITALIZATION/MAJOR DIAGNOSTIC PROCEDURE SEES ABOVE- SURGERIES REVIEW OF SYSTEMS CONSTITUTIONAL: ANY RECENT FEVER NO . CHILLS NO . WEIGHT CHANGE OF UNKNOWN REASONS NO . GASTROENTEROLOGY: NEW UNEXPLAINABLE CHANGES IN BOWEL CONTROL NO . CONSTIPATION NO . GENITOURINARY: ANY NEW CHANGE IN BLADDER CONTROL? NO . NEUROLOGY: NEW ONSET DIZZINESS OR NEUROLOGICAL CHANGES NOT MENTIONED NO . NEW NUMBNESS OR PAIN PATTERNS NOT MENTIONED AND PERTINENT TO TODAY'S VISIT NO . CARDIOLOGY: NEW CHEST PRESSURE NO . NEW CHEST PAIN NO . RESPIRATORY: UNEXPLAINABLE COUGH NO . NEW SHORTNESS OF BREATH NO . CURRENTLY BEING WORKED UP FOR FLUID RETENTION. FOLLOWING WITH PRIMARY CARE. RECENTLY STARTED ON DIURETICS AND BLOOD PRESSURE MEDICATION. WILL BE HAVING ECHO OF HEART IN THE NEAR FUTURE. ASSESSMENTS SACROILIAC JOINT PAIN - M53.3 (PRIMARY) TREATMENT SACROILIAC JOINT PAIN REFILL IBUPROFEN TABLET, 800 MG, 1 TABLET, ORALLY NEEDED, THREE TIMES A DAY, 90 DAYS, 270, REFILLS 1 REFILL PERCOCET TABLET, 10-325 MG, 1 TABLET NEEDED, ORALLY, EVERY 6 HRSMDD4, 30 DAY(S), 120, REFILLS 0 NOTES: ISTOP REGISTRY REVIEWED AND DEMONSTRATES COMPLLIANCE. RECENT URINE TOXICOLOGY REVIEWED. NO UNAUTHORIZED MEDICATIONS. NO ILLICIT SUBSTANCES AND PRESCRIBED MEDICATIONS WERE PRESENT. TIME SPENT DURING TELEPHONE VISIT TODAY WAS APPROXIMATELY 11 MINUTES. DISPOSITION & COMMUNICATION FOLLOW UP 3 MONTHS IN CLINIC (REASON: MED MGMNT/LBP/NON COMP) ELECTRONICALLY SIGNED BY PATO DE LA CRUZ ON 08/10/2019 AT 01:19 PM EDT DISCLAIMER : THIS IS A VISIT SUMMARY EXTRACTED FROM THE [employer] CHART. IT IS NOT A COPY OF THE [employer] PROGRESS NOTE. YULIET
== END ==
LOC: M PAIN 14:30
PROVIDERS: ATTEND Nurse Practitioner Family
DX: M53.3 Sacrococcygeal disorders, not elsewhere classified (principal); Z79.891 Long term (current) use of opiate analgesic; Z79.899 Other long term (current) drug therapy; F17.210 Nicotine dependence, cigarettes, uncomplicated; Z88.0 Allergy status to penicillin; Z88.8 Allergy status to other drugs, medicaments and biological substances

== ENCOUNTER → 2019-08-24 | Outpatient (CLI) | payer BC, MEDICARE ==
[~2019-08-24] MED LIST changes: +AMIT25TA PO; +AMIT75TA PO; +AMLO-179 PO; +ATOR40TA75 PO; +CARI1TAB7; +CARV12.5 PO; +COMBAER6 INH; +CYMB1CAP5 PO; +DIAZ2TAB PO; +DULO1CAP5 PO; +LYRI300C PO; +MORP-69; +MORP-69 PO; +MS C15TA8 PO; +NYST10CR TOP; +OMEP-221 PO; +OXYC10TA3 PO; +PRED20TA PO; +PRIM250T8 PO; +PROP20TA72; +PROP20TA72 PO; +SING10TA32 PO; +SPIR1CAP INH; +SUCR1TAB56 PO
--- NOTE | 2019-08-25 10:02 | ECHO ---
DATE OF PROCEDURE: 08/24/2019 REFERRING PHYSICIAN: MARIA TERESA Escamilla INDICATION: Edema OUTPATIENT HEIGHT: 172 cm. WEIGHT: 74 kg. DIMENSIONS: IVS: 1.4 LV: 3.9 LVPW: 1.4 LA: 3.5 Aorta: 3.9 IVC: 2.1 Mitral E wave velocity: 76 A wave: 56 E prime septal: 7.3 E prime lateral: 9.6 FINDINGS: The study is of fair technical quality. The patient is in sinus rhythm. The left ventricle is normal size and systolic function with estimated left ventricular ejection fraction (LVEF) 65-70%. Mild left ventricular hypertrophy (LVH) is noted. The right ventricle is also normal size and systolic function. Both atria appear normal. All four cardiac valves were reasonably well seen and appear normal. No pericardial effusion is noted. The inferior vena cava is mildly dilated and there is limited collapse with inspiration indicative of likely elevated central venous pressure. The aortic root is normal. The abdominal aorta is also normal. Aortic arch was not well seen. Doppler interrogation reveals competent aortic, mitral, tricuspid and pulmonic valves. Mitral inflow pattern and tissue Doppler imaging of the mitral annulus revealed likely normal diastolic function even though tissue Doppler velocities are marginally reduced. CONCLUSIONS: 1. The study is of acceptable technical quality, the patient is in sinus rhythm. 2. Normal LV size with mild LVH, preserved LV systolic, and likely also diastolic function. 3. No significant valvular disease. 4. Elevated central venous pressure. 5. Unable to estimate pulmonary artery pressure, but no signs to suggest pulmonary hypertension. COMMENT: Subacute bacterial endocarditis (SBE) prophylaxis is not recommended. The study is supportive of elevated central venous pressure and potentially could explain the patient's edema.
== END ==
LOC: M CARPUL 09:17
PROVIDERS: ATTEND Physician Assistant
DX: R60.9 Edema, unspecified (principal)

== ENCOUNTER → 2019-08-31 | Outpatient (CLI) | payer OTHER, MEDICARE, BC ==
--- NOTE | 2019-09-02 02:03 | ECWPNPC ---
PATIENT NAME: TAMARA MONROY : 1965 GENDER: MALE VISIT DATE: 08/31/2019 DISCHARGE DATE: 08/31/19 1518 VISIT LOCKED DATE TIME: PHYSICIAN: YAS ROBERTSON RESOURCE: YAS ROBERTSON REASON FOR APPOINTMENT 1. W/C SHOULDER HISTORY OF PRESENT ILLNESS GENERAL: -. FALL RISK SCREENING: SCREENING :NO FALLS REPORTED IN THE LAST YEAR PAIN SCREENING: PATIENT HAS A COMPLAINT OF ACUTE OR CHRONIC PAIN :YES LOCATION OF PAIN:OTHER: BILATERAL ARMS INTENSITY OF PAIN (SCALE OF 1 TO 10):8 WHAT DOES YOUR PAIN FEEL LIKE:ACHING, CONTINOUS, THROBBING NURSING NOTE: -. PAIN CENTER INTAKE QUESTIONS: DO YOU HAVE A HISTORY OF MRSA? :NO DO YOU TAKE A BLOOD THINNERS? :NO DO YOU HAVE ANY BLEEDING DISORDERS? :NO ANY NEW NUMBNESS OR WEAKNESS IN YOUR LEGS OR ARMS? :YES BILATERAL ARMS WEAKNESS, BECOMING WEAKER DURING AFTERNOON ANY PACEMAKER,DEFIBRILLATOR, OR DORSAL COLUMN STIMULATOR? :NO DO YOU HAVE ANY RASHES OR OPEN SORES? :NO ARE YOU ALLERGIC TO IV DYE? :NO ARE YOU DIABETIC? :NO ANY NEW PROBLEMS WITH YOUR MEDICATIONS? :NO HAVE YOU RECEIVED A VACCINE IN THE PAST 30 DAYS? :NO DO YOU PLAN TO RECEIVE A VACCINE IN THE NEXT 21 DAYS? :NO DO YOU NEED ANY PRESCRIPTION? :YES MORPHINE REFILL DO YOU TAKE ANY IMMUNOSUPPRESSIVE MEDICATIONS? :NO IS THERE A CHANCE YOU COULD BE ? :NO ARE YOU BREAST FEEDING? :NO FALL RISK SCREENING: HERE FOR FOLLOW-UP OF BILATERAL SHOULDER PAIN. OVER THE PAST WEEK, BILATERAL TRAPEZIUS AND SHOULDER PAIN HAS RETURNED. RATING PAIN VAS 810.ALSO HAVING EPISODES OF EXCRUCIATING LEFT ARM SHOOTING PAIN WITH ROJM OF LEFT ARM COMPROMISED.DESPITE ESCALATING DOSE OF GABAPENTIN FOR NEUROPATHIC PAIN HIS PAIN PERSISTS. THIS IS A WORK RELATED INJURY WITH DOI 9-15-17.HE WAS LIFTING TIRES AND HEARD A SNAP AND HAD EXCRUIATING PAIN BILATERAL SHOULDERS R>L.HE IS STATUS POST BILAT SHOULDER SURGERY(MAR 11 2017-LEFT_ _-MAY 2018 RIGHT).HAS BEEN HAVING CONSTANT TREMORS IN HANDS AT REST AND WITH USE SINCE INJURY.DENIES FEVER OR ILLNESS.DENIES WEIGHT LOSS. SCREENING : NO FALLS IN THE PAST YEAR. CURRENT MEDICATIONS TAKING MULTIVITAMINS OTC TABLET 1 TABLET ORALLY ONCE A DAY TAKING CYMBALTA 30 MG CAPSULE DELAYED RELEASE PARTICLES 1 CAPSULE TWICE A DAY ORALLY 90 DAY(S) TAKING VITAMIN D (ERGOCALCIFEROL) 95484 UNIT CAPSULE 1 CAPSULE ORALLY ONCE A WEEK (MONDAYS) TAKING BACLOFEN 20 MG TABLET 1 TABLET WITH FOOD OR MILK ORALLY Q6H QID TAKING GABAPENTIN 300 MG CAPSULE 1 CAPSULE ORALLY THREE TIMES A DAY TAKING SOMA 350 MG TABLET 1 TABLET ORALLY Q8H MDD3 TAKING ATORVASTATIN CALCIUM 40 MG TABLET 1 TABLET ORALLY ONCE A DAY TAKING LOSARTAN POTASSIUM 50 MG TABLET 1 TABLET ORALLY ONCE A DAY TAKING NYSTATIN 778528 UNIT/GM CREAM 1 APPLICATION 2G EXTERNALLY TWICE A DAY TO RASH ON GROIN TAKING AMITRIPTYLINE HCL 25 MG TABLET 3 ORALLY ONCE A DAY TAKING LYRICA 300 MG CAPSULE 1 CAPSULE ORALLY BID MDD2 TAKING MORPHINE SULFATE ER 15 MG TABLET EXTENDED RELEASE 1 TO 2 DIRECTED ORALLY 1 IN AM,2 AT HS MDD3 TAKING IBUPROFEN 800 MG TABLET 1 TABLET ORALLY NEEDED THREE TIMES A DAY TAKING PERCOCET 10-325 MG TABLET 1 TABLET NEEDED ORALLY EVERY 6 HRSMDD4 TAKING SPIRIVA HANDIHALER 18 MCG CAPSULE 1 CAPSULE BY INHALING THE CONTENTS OF THE CAPSULE USING THE HANDIHALER DEVICE INHALATION ONCE A DAY TAKING VENTOLIN HFA 108 (90 BASE) MCG/ACT AEROSOL SOLUTION 1 PUFF NEEDED INHALATION EVERY 4 HRS NEEDED MEDICATION LIST REVIEWED AND RECONCILED WITH THE PATIENT PAST MEDICAL HISTORY CHRONIC LOW BACK PAIN - DDD RIGHT ARM PAIN - BICEPS TENDON RUPTURE - [facility] - S/P SURGICAL REPAIR 2013 WITH RESIDUAL NUMBNESS AND PAIN - MACROCYTIC ANEMIA PULMONARY NODULES - CHEST CT 09/25/13 - MILD COPD, OLD GRANULOMATOUS DISEASE WITH CALCIFIED 11MM NODULE IN LLL, CALCIFIED LEFT HILAR NODES. 3MM NONCALCIFIED PULMONARY NODULE JUST ADJACENT TO AND CONTINUOS WITH OTHER PULMONARY NODULE. RECOMMEND F/U CT CHEST 09/25. - F/U CT DONE 08/03/15 - CHRONIC CHANGES, STABLE 3 MM NODULE C/W 09/25/13 - NO FURTHER IMAGING NEEDED VITAMIN D DEFICIENCY RIGHT TORN ROTATOR CUFF/ TORN LEFT ROTATOR CUFF DEPRESSION HYPERTENSION BL HAND TREMOR - PER IMAGING AT [facility]-SPINE X-RAYS SHOWED SEVERE DEGENERATIVE CHANGES, MRI SHOWED MILD DEGENERATIVE CHANGES. F/U MRI PENDING PER NEUROSURGERY (COMP CASE) - NEUOLOGY DR. 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 2 SON(S) - HEALTHY. FATHER CIRRHOSIS OF LIVER\\NMOTHER HAD BREAST CANCER, BONE CANCER. SOCIAL HISTORY GENERAL: TOBACCO USE ARE YOU A:CURRENT SMOKER ARE YOU INTERESTED IN QUITTING?NOT READY TO QUIT COUNSELED THE PATIENT ON SMOKING EFFECTS, EDUCATION [id number] HOW MANY CIGARETTES A DAY DO YOU SMOKE?6-10 HOW OFTEN DO YOU SMOKE CIGARETTES?EVERY DAY PATIENT COUNSELED ON THE DANGERS OF TOBACCO USE AND URGED TO QUIT:08/31/2019 LATEX QUESTIONNAIRE LATEX ALLERGY : HAVE YOU EVER DEVELOPED ANY TYPE OF REACTION AFTER HANDLING LATEX PRODUCTS SUCH RUBBER GLOVES, CONDOMS, DIAPHRAGMS, BALLOONS, SOCKS, OR UNDERWEAR?NO LATEX ALLERGY : HAVE YOU EVER DEVELOPED ANY TYPE OF REACTION DURING OR AFTER DENTAL APPOINTMENT, VAGINAL/RECTAL EXAMINATION, SURGICAL PROCEDURE, OR ANY OTHER EXPOSURE?NO LATEX RISK : HAVE YOU EVER HAD ANY DIFFICULTY BREATHING OR HIVES AFTER EATING OR HANDLING ANY FRUITS, OR VEGETABLES; SUCH KIWI, BANANAS, STONE FRUITS, OR CHESTNUTSNO LATEX RISK : DO YOU HAVE A PREVIOUS PERSONAL HISTORY OF MORE THAN NINE SURGERIES, SPINA BIFIDA, OR REPEATED CATHERIZATIONS? NO LATEX RISK : ARE YOU FREQUENTLY EXPOSED TO LATEX PRODUCTS IN YOUR OCCUPATION?NO DATE ASKED : 08/31/2019 ALCOHOL SCREENING DID YOU HAVE A DRINK CONTAINING ALCOHOL IN THE PAST YEAR?NO POINTS0 INTERPRETATIONNEGATIVE RECREATIONAL DRUG USE DRUG USE?NO PATIENT DENIES ABUSE OR MISSUSED OF ANY MEDICATION DENIES PATIENT DENIES USE OF ANY ILLEGAL SUBSTANCE INCLUDING MARIJUANA OR COCAINE DENIES CAFFEINE CAFFEINE USE?YES HOW OFTEN AND HOW MUCH? 6 CUPS COFFEE/DAY SEXUAL HX HAD SEX IN THE LAST 12 MONTHS (VAGINAL, ORAL, OR ANAL)?NO HAVE YOU EVER HAD AN STD?NO UATSDIN [id number] TEMPLE LANGUAGE LANGUAGES SPOKEN:[place]IZ[place] OF [place] EDUCATION LEVEL OF EDUCATION:COLLEGE LEARNING BARRIERS / SPECIAL NEEDS CHANGE FROM LAST VISIT?NO BARRIERS TO LEARNING?NO HEARING IMPAIRED?NO VISION IMPAIRED?YES COGNITIVELY IMPAIRED?NO :CORRECTIVE LENSES READINESS TO LEARN?YES LEARNING PREFERENCES?NO LEARNING CAPABILITIES PRESENT?YES EMOTIONAL BARRIERS?NO SPECIAL DEVICES?NO ABRASIVE GRINDER NEEDED?NO DOMESTIC VIOLENCE DO YOU FEEL SAFE IN YOUR ENVIRONMENT?YES 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 DIET: REGULAR. EXERCISE: NO REGULAR EXERCISE. MARITAL STATUS: . OTHERS AT HOME: SPOUSE. PAIN CLINIC PFS, CLERGY, PUBLIC HEALTH REFERRALS PFS REFERRAL NEEDED?NO CLERGY REFERRAL NEEDED?NO PUBLIC HEALTH REFERRAL NEEDED?NO HAS THE PATIENT BEEN EDUCATED REGARDING HIS/HER PLAN OF CARE?YES HAS THE PATIENT BEEN EDUCATED REGARDING PAIN, THE RISK FOR PAIN, THE IMPORTANCE OF EFFECTIVE PAIN MANAGEMENT, AND THE PAIN ASSESSMENT PROCESS?YES ADVANCE DIRECTIVE ADVANCE DIRECTIVE DISCUSSED WITH PATIENT:YES HCP - SAPNA MONROY [phone] HOSPITALIZATION/MAJOR DIAGNOSTIC PROCEDURE SEES ABOVE- SURGERIES REVIEW OF SYSTEMS CONSTITUTIONAL: ANY RECENT FEVER NO . CHILLS NO . WEIGHT CHANGE OF UNKNOWN REASONS NO . GASTROENTEROLOGY: NEW UNEXPLAINABLE CHANGES IN BOWEL CONTROL NO . CONSTIPATION NO . GENITOURINARY: ANY NEW CHANGE IN BLADDER CONTROL? NO . NEUROLOGY: NEW ONSET DIZZINESS OR NEUROLOGICAL CHANGES NOT MENTIONED NO . NEW NUMBNESS OR PAIN PATTERNS NOT MENTIONED AND PERTINENT TO TODAY'S VISIT NO . CARDIOLOGY: NEW CHEST PRESSURE NO . NEW CHEST PAIN NO . RESPIRATORY: UNEXPLAINABLE COUGH NO . NEW SHORTNESS OF BREATH NO . VITAL SIGNS WT 164.2 LBS, HT 69 IN, BMI 24.25 INDEX, BP 198/84 MM HG, HR 89 /MIN, RR 18 /MIN, TEMP 97.0 F, OXYGEN SAT % 94%, SAFE IN ENV? (Y/N) Y, NA INITIALS AW 1438, REVIEWED BY: HARPREET. EXAMINATION SHOULDER / UPPER ARM: SHOULDER:BILATERAL. RANGE OF MOTION:LIMITED RANGE OF MOTION ,30 DEGREES ABDUCTION HAS TO STOP DUE TO PAIN. STRENGTH:WEAK TIMBER SELECTOR STRENGTH R>L.MST WEAK R>L 3/5. PALPATION:TENDER BILAT.R>L TRIGGER POINTS OVER RHOMBOID ,MIDSCAPULAR SHOULDERS BILAT.. GENERAL EXAMINATION: GENERALNO ACUTE DISTRESS, WELL NOURISHED AND HYDRATED. PSYCHAPPROPRIATE MOOD AND AFFECT . LUNGS:CLEAR TO AUSCULTATION BILATERALLY, NO WHEEZES, RHONCHI, RALES. HEART:NO MURMURS, REGULAR RATE AND RHYTHM. ASSESSMENTS MYALGIA, OTHER SITE - M79.18 (PRIMARY) PAIN IN RIGHT SHOULDER - M25.511 PAIN IN LEFT SHOULDER - M25.512 TREATMENT MYALGIA, OTHER SITE NOTES: WORKMEN'S COMP REQUEST TRIGGER POINT INJECTIONS, BILATERAL SHOULDER NO DEXAMETHASONE. PROCEDURES PN WORKMANS' COMP OPINION IN YOUR OPINION, WAS THE INCIDENT THAT THE PATIENT DESCRIBED THE COMPETENT MEDICAL CAUSE OF THIS INJURY/ILLNESS? YES ARE THE PATIENT'S COMPLAINTS CONSISTENT WITH HIS/HER HISTORY OF THE INJURY/ILLNESS? YES IS THE PATIENT'S HISTORY OF THE INJURY/ILLNESS CONSISTENT WITH YOUR OBJECTIVE FINDING? YES WHAT IS THE PERCENTAGE OF TEMPORARY IMPAIRMENT? MODERATE TO MARKED = 66.7% IS THE PATIENT WORKING? NO DOCTOR ON SITE: DONTA QURESHI MD PREVENT[facility]IC[facility] PAIN CLINIC TEACHING: THE PATIENT HAS BEEN EDUCATED REGARDING PAIN, THE RISK FOR PAIN, THE IMPORTANCE OF EFFECTIVE PAIN MANAGEMENT, AND THE PAIN ASSESSMENT PROCESS. : REVIEWED WRITTEN AND VERBAL PRE-PROCEDURE INSTRUCTIONS AND PLAN OF CARE WITH PATIENT, PT ACKNOWLEDGED UNDERSTANDING, DS PROCEDURE CODES FA211 ESTABILISHED PATIENT [facility] FACILITY CHARGE DISPOSITION & COMMUNICATION FOLLOW UP POST PROC (REASON: WORKMEN'S COMP REQUEST TRIGGER POINT INJECTIONS, BILATERAL SHOULDER NO DEXAMETHASONE) ELECTRONICALLY SIGNED BY PATO DE LA CRUZ ON 09/01/2019 AT 12:46 PM EDT DISCLAIMER : THIS IS A VISIT SUMMARY EXTRACTED FROM THE [employer] CHART. IT IS NOT A COPY OF THE [employer] PROGRESS NOTE. YULIET
== END ==
LOC: M PAIN 14:15
PROVIDERS: ATTEND Nurse Practitioner Family
DX: M79.18 Myalgia, other site (principal); M25.511 Pain in right shoulder; M25.512 Pain in left shoulder

== ENCOUNTER 2019-10-04 13:59 | Emergency (ER) | payer BC, MEDICARE ==
[~2019-10-04] VITALS: Ht 175.3 cm; Wt 75.0 kg
[~2019-10-04 13:59] MED LIST changes: -AMIT25TA PO; -AMIT75TA PO; -AMLO-179 PO; -ATOR40TA75 PO; -CARI1TAB7; -CARV12.5 PO; -COMBAER6 INH; -CYMB1CAP5 PO; -DIAZ2TAB PO; -DULO1CAP5 PO; -LYRI300C PO; -MORP-69; -MORP-69 PO; -MS C15TA8 PO; -NYST10CR TOP; -OMEP-221 PO; -OXYC10TA3 PO; -PRED20TA PO; -PRIM250T8 PO; -PROP20TA72; -PROP20TA72 PO; -SING10TA32 PO; -SPIR1CAP INH; -SUCR1TAB56 PO
[2019-10-04] MEDS ORDERED: AMIT25TA PO (14:20)
[2019-10-04] MEDS ORDERED: ATOR40TA75 PO (14:20)
[2019-10-04] MEDS ORDERED: MORP-69 (14:20)
[2019-10-04] MEDS ORDERED: PRIM250T8 PO (14:20)
[2019-10-04 15:27] LABS: CK-MB VALUE MASS 1.6 NG/ML (<3.6); CPK CREATINE PHOSPHOKINASE 141 U/L (39-308); MB/CK RELATIVE INDEX 1.13 (< OR =4); TROPONIN I < 0.02 NG/ML (< 0.10)
[2019-10-04 16:00] VITALS: BP 179/99
--- NOTE | 2019-10-21 12:50 | ECGEPIP ---
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
== END 2019-10-04 16:09 | disposition home or self-care (01) ==
LOC: M ED 13:59
DX: R07.9 Chest pain, unspecified (principal); R06.02 Shortness of breath; R42 Dizziness and giddiness; Z53.9 Procedure and treatment not carried out, unspecified reason; I10 Essential (primary) hypertension; J44.9 Chronic obstructive pulmonary disease, unspecified; F17.210 Nicotine dependence, cigarettes, uncomplicated; Z88.0 Allergy status to penicillin; Z79.899 Other long term (current) drug therapy

== ENCOUNTER 2019-10-07 18:16 | Emergency (ER) | payer MEDICARE, BC ==
[~2019-10-07] VITALS: Ht 175.3 cm; Wt 76.0 kg
[~2019-10-07 18:16] MED LIST changes: +AMIT25TA PO; +ATOR40TA75 PO; +MORP-69; +PRIM250T8 PO
[2019-10-07] MEDS ORDERED: PROP20TA72 (18:26)
[2019-10-07] MEDS ORDERED: CARI1TAB7 (18:26)
[2019-10-07] MEDS ORDERED: SING10TA32 PO (18:26)
[2019-10-07] MEDS ORDERED: NYST10CR TOP (18:26)
[2019-10-07] MEDS ORDERED: MS C15TA8 PO (18:26)
[2019-10-07] MEDS ORDERED: LORazepam 1 MG TAB PO STA (19:22)
[2019-10-07] MEDS ORDERED: PROP20TA72 PO (19:29)
[2019-10-07] MEDS ORDERED: PROPRANOLOL 20 MG TAB PO ONE (19:30)
[2019-10-07 20:02] VITALS: BP 180/120
[2019-10-07 20:46] VITALS: BP 158/98
== END 2019-10-07 20:47 | disposition home or self-care (01) ==
LOC: M ED 18:16
DX: F41.1 Generalized anxiety disorder (principal); I10 Essential (primary) hypertension; J44.9 Chronic obstructive pulmonary disease, unspecified; F17.210 Nicotine dependence, cigarettes, uncomplicated; Z88.0 Allergy status to penicillin; Z79.899 Other long term (current) drug therapy

== ENCOUNTER 2019-10-09 17:58 | Inpatient (IN) | payer BC, MEDICARE ==
[~2019-10-09] VITALS: Ht 175.3 cm; Wt 73.5 kg
[~2019-10-09 17:58] MED LIST changes: +CARI1TAB7; +MS C15TA8 PO; +NYST10CR TOP; +PROP20TA72; +PROP20TA72 PO; +SING10TA32 PO
--- NOTE | 2019-10-09 18:33 | REPVR ---
PROCEDURE INFORMATION: Exam: CT Head Without Contrast Exam date and time: 10/09/2019 6:16 PM Age: 54 years old Clinical indication: Altered mental status/memory loss; Confusion or disorientation TECHNIQUE: Imaging protocol: Computed tomography of the head without contrast. Radiation optimization: All CT scans at this facility use at least one of these dose optimization techniques: automated exposure control; mA and/or kV adjustment per patient size (includes targeted exams where dose is matched to clinical indication); or iterative reconstruction. COMPARISON: MRI-Brain without Contrast 12/14/2017 10:56 AM FINDINGS: Brain: The degree of generalized cerebral and cerebellar volume loss appears advanced for age. No hemorrhage or edema seen. Ventricles: No ventriculomegaly. Bones/joints: Unremarkable. No acute fracture. Sinuses: Visualized sinuses are unremarkable. No fluid levels. Mastoid air cells: Visualized mastoid air cells are well aerated. Soft tissues: Unremarkable. IMPRESSION: No acute intracranial abnormality seen. Electronically signed by: Yissel Corrigan On 10/09/2019 18:32:59 PM
[2019-10-09 19:11] LABS: VENOUS BASE EXCESS 0.1 (-2.0-2.0); VENOUS HCO3 24.7 MEQ/L (23.0-27.0); VENOUS O2 SATURATION 83.7 % (60.0-80.0); VENOUS PARTIAL PRESSURE CO2 39.7 mmHg (38.0-50.0); VENOUS PARTIAL PRESSURE O2 44.4 mmHg (30.0-50.0); VENOUS PH 7.411 UNITS (7.330-7.430); VENOUS TOTAL CO2 25.9 MEQ/L (24.0-28.0)
[2019-10-09 19:27] LABS: BASO % 0.2 % (0.0-1.0); HEMOGLOBIN 14.1 g/dl (13.5-17.5); LYMPH # 1.7 10^3/uL (1.5-5.0); MEAN CORPUSCULAR HEMOGLOBIN 31.7 pg (27.0-33.0); MEAN CORPUSCULAR HGB CONC 36.2 g/dl (32.0-36.5); MEAN CORPUSCULAR VOLUME 87.6 fl (80.0-96.0); MONO # 0.8 10^3/uL (0.0-0.8); MONO % 8.4 % (0.0-5.0); PLATELET COUNT, AUTOMATED 252 10^3/uL (150-450); RED BLOOD COUNT 4.45 10^6/uL (4.30-6.10); WHITE BLOOD COUNT 9.6 10^3/uL (4.0-10.0)
[2019-10-09] MEDS ORDERED: NS 1,000 ML IV ONE (19:30)
[2019-10-09] MEDS ORDERED: cloNIDine 0.2 MG TAB PO ONE (19:30)
[2019-10-09 19:41] LABS: OSMOLALITY SERUM 251 MOSM/KG (275-295)
[2019-10-09 20:11] LABS: ALBUMIN 4.3 GM/DL (3.2-5.2); ALT/SGPT 18 U/L (12-78); BILIRUBIN,DIRECT 0.2 MG/DL (0.0-0.2); BILIRUBIN,TOTAL 0.5 MG/DL (0.2-1.0); BLOOD UREA NITROGEN 4 MG/DL (7-18); CARBON DIOXIDE LEVEL 27 MEQ/L (21-32); CHLORIDE LEVEL 88 MEQ/L (98-107); CK-MB VALUE MASS 2.9 NG/ML (<3.6); CPK CREATINE PHOSPHOKINASE 638 U/L (39-308); CREATININE FOR GFR 0.79 MG/DL (0.70-1.30); ETHYL ALCOHOL (ETHANOL) < 0.003 % (0.000-0.010); GLOMERULAR FILTRATION RATE > 60.0 (>56); GLUCOSE, FASTING 103 MG/DL (70-100); MB/CK RELATIVE INDEX 0.45 (< OR =4); POTASSIUM SERUM 3.9 MEQ/L (3.5-5.1); SODIUM LEVEL 123 MEQ/L (136-145); TOTAL PROTEIN 7.5 GM/DL (6.4-8.2); TROPONIN I 0.05 NG/ML (< 0.10)
[2019-10-09] MEDS ORDERED: IBUP80TA PO (21:09)
[2019-10-09] MEDS ORDERED: PROP20TA72 PO (21:26)
[2019-10-09] MEDS ORDERED: LYRI300C PO (21:27)
[2019-10-09] MEDS: NS 1,000 ML IV SCH (22:00)
--- NOTE | 2019-10-09 23:22 | IPNPDOC ---
Text Note Date of Service The patient was seen on 10/09/19. NOTE is a 54 yr old w a hx of anxiety, depression, chronic back pain and COPD who presented w various c/o including weakness, thinking he is dying, dyspnea and body shocks; he will be admitted for management of hyponatremia & elevated CPK . He has a flat affect and preoccupation with the idea that he is about to any moment; we will place an order for a sitter and ask the day time team to consult Psych VS,Sara, I+O VS, Sara, I+O Laboratory Tests 10/09/19 18:53 Vital Signs Date Time Temp Pulse Resp B/P (MAP) Pulse Ox O2 Delivery O2 Flow Rate FiO2 10/09/19 23:07 88 14 160/92 (114) 98 10/09/19 18:25 99.0 Room Air ANYI KELLY MD Oct 09, 2019 23:22
[2019-10-09 23:35] LABS: OSMOLALITY URINE 168 MOSM/KG (500-800)
[2019-10-09 23:44] LABS: SODIUM,RANDOM URINE 60 MEQ/L
[2019-10-10] VITALS (7 sets, daily range): BP systolic 136–178; BP diastolic 80–100
[2019-10-10] MEDS ORDERED: cloNIDine 0.1 MG TAB PO ONE
[2019-10-10] MEDS ORDERED: IBUPROFEN 800 MG TAB PO PRN
[2019-10-10 00:03] LABS: AMPHETAMINES LEVEL URINE NEGATIVE (NEGATIVE); BARBITURATES URINE POSITIVE (NEGATIVE); BENZODIAZEPINES URINE NEGATIVE (NEGATIVE); CANNABINOIDS URINE NEGATIVE (NEGATIVE); COCAINE METABOLITE URINE NEGATIVE (NEGATIVE); METHADONE URINE NEGATIVE (NEGATIVE); OPIATES URINE POSITIVE (NEGATIVE); PHENCYCLIDINE URINE NEGATIVE (NEGATIVE)
[2019-10-10] MEDS ORDERED: PILL CUTTER 1 EACH XX PRN (00:45)
[2019-10-10] MEDS: PREGABALIN 100 MG CAP (LYRICA) PO SCH ×3 (01:18→20:46)
[2019-10-10] MEDS: MORPHINE 15 MG SA TAB PO SCH ×4 (01:20→22:39)
--- NOTE | 2019-10-10 04:25 | HPEPDOC ---
General Date of Admission Oct 09, 2019 at 23:19 Date of Service: Oct 09, 2019 Chief Complaint The patient is a 54-year-old male admitted with a reason for visit of Elevated Cpk. Source: Patient Exam Limitations: Clinical conditions Severity: Mild Associated Symptoms: Shortness of breath, Increased agitation History of Present Illness Patient is a 54 yo male who has reported PMH of depression presented to [facility] via EMS with CC of " I think I'm gonna " and dyspnea for 2 days with concern for AMS. Patient reported dyspneaX2 days, whole body electrical shock like tingling, numbness, and loss of sensation all over bodyX2 weeks; also report blurry visionX1 day which resolved in the ER. Nausea and 1 episode of emesis yesterday. Pt admitted to being very anxious with inability to sleep and flights of thou ghts. It was noted that patient has been seen at [facility] 10/04/2019 and 10/07/2019, and that EMS saw pt earlier in the day and pt refused care due to provider appointment that he didn't go to. It was noted that patient is very anxious on arrival. When being asked when he became less anxious, he said "I already accepted the fact I am going to ." He reported he used his 's advair without improvement for dyspnea. Denies any chest pain, palpitation, fever, chills. Denies visual or auditory hallucinations Home Medications Scheduled Amitriptyline HCl (Amitriptyline HCl) 25 Mg Tablet, 25 MG PO TID, (Reported) Atorvastatin Calcium (Atorvastatin Calcium) 40 Mg Tablet, 40 MG PO DAILY, (Reported) Gabapentin (Gabapentin) 300 Mg Cap, 300 MG PO TID, (Reported) Losartan Potassium (Losartan Potassium) 50 Mg Tablet, 50 MG PO DAILY, (Reported) Montelukast Sodium (Singulair) 10 Mg Tablet, 10 MG PO QHS, (Reported) Morphine Sulfate (Ms Contin) 15 Mg Tablet.er, 15 MG PO Q8H, (Reported) Nystatin (Nystatin) 15 Gm Cream..g., 1 APPLIC TOP BID, (Reported) groin Pregabalin (Lyrica) 300 Mg Capsule, 300 MG PO BID, (Reported) Primidone (Primidone) 250 Mg Tablet, 62.5 MG PO BID, (Reported) Propranolol HCl (Propranolol HCl) 20 Mg Tablet, 20 MG PO QPM, (Reported) Scheduled PRN Carisoprodol (Soma) 350 Mg Tab, 350 MG PO Q8H PRN for SPASMS, (Reported) Ibuprofen (Ibuprofen) 800 Mg Tablet, 800 MG PO TID PRN for PAIN, (Reported) Allergies Coded Allergies: Penicillins (Verified Allergy, Unknown, 08/01/19) UNKNOWN Past Medical History Medical History Chronic low back pain(DDD) Right arm pain-biceps tendon rupture, s/p surgical repair in 2013 w/ residual numbness and pain, [facility] ortho Dr. 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 COPD Surgical History Biceps tendon rupture repair Colonoscopy 2015 Right rotator cuff repair-right 06/2018 Left rotator cuff tear repair 02/2017 Social History * Smoker: Denies A-FIB/CHADSVASC A-FIB History Current/History of A-Fib/PAF?: No Review of Systems Constitutional: Denies: Chills, Fever Pulmonary: Reports: Dyspnea Cardiovascular: Denies: Chest Pain, Palpitations Gastrointestinal: Reports: Nausea, Vomiting Neurological: Reports: Numbness, Other Symptoms (tingling, loss of sensation, flights of thoughts, insomnia) Psych: Reports: Anxiety; Denies: Mood Normal Physical Examination General Exam: Positive: Alert, No Acute Distress Eye Exam: Positive: Conjunctiva & lids normal, EOMI, Other Eye Symptoms (Pupil equal and round b/l); Negative: Sclera icteric ENT Exam: Positive: Atraumatic, Mucous membr. moist/pink, Tongue Midline Neck Exam: Positive: Supple Chest Exam: Positive: Normal air movement, Diminished (Mild bilaterally); Negative: Rales, Rhonchi, Wheezing Heart Exam: Positive: Rate Normal, Regular Rhythm, Normal S1, Normal S2; Negative: Murmurs Abdomen Exam: Positive: Normal bowel sounds, Soft; Negative: Tenderness Extremity Exam: Negative: Edema, Tenderness, Swelling Skin Exam: Positive: Nl turgor and temperature Neuro Exam: Positive: Strength at 5/5 X4 ext, Normal Tone, Sensation Intact (with no tingling elicited with touch), Cranial Nerves 3-12 NL Psych Exam: Positive: Anxiety (mild), Oriented x 3, Other (able to carry normal conversation and answer questions without obvious tangential or circumferential thought process at this time. Positive for delusions. No hallucinations); Negative: Mood NL Vital Signs Vital Signs Date Time Temp Pulse Resp B/P (MAP) Pulse Ox O2 Delivery O2 Flow Rate FiO2 10/10/19 02:00 98.5 87 20 148/84 (105) Room Air 10/10/19 00:51 98 Laboratory Data Labs 24H Laboratory Tests 2 10/09/19 18:53: Immature Granulocyte % (Auto) 0.4, Neutrophils (%) (Auto) 73.0H, Lymphocytes (%) (Auto) 18.0L, Monocytes (%) (Auto) 8.4H, Eosinophils (%) (Auto) 0.0, Basophils (%) (Auto) 0.2, Neutrophils # (Auto) 7.0, Lymphocytes # (Auto) 1.7, Monocytes # (Auto) 0.8, Eosinophils # (Auto) 0.0, Basophils # (Auto) 0.0, Nucleated Red Blo od Cells % (auto) 0.0, Venous Blood pH 7.411, Venous Blood Partial Pressure CO2 39.7, Venous Blood Partial Pressure O2 44.4, Venous Blood Total Carbon Dioxide 25.9, Venous Blood HCO3 24.7, Venous Blood Oxygen Saturation 83.7H, Venous Blood Base Excess 0.1, Anion Gap 8, Glomerular Filtration Rate > 60.0, Osmolality 251L, Lactic Acid Level 1.4, Calcium Level 9.0, Total Bilirubin 0.5, Direct Bilirubin 0.2, Aspartate Amino Transf (AST/SGOT) 24, Alanine Aminotransferase (ALT/SGPT) 18, Alkaline Phosphatase 106, Ammonia 16, Total Creatine Kinase 638H, Creatine Kinase MB 2.9, Creatine Kinase MB Relative Index 0.45, Troponin I 0.05, Total Protein 7.5, Albumin 4.3, Albumin/Globulin Ratio 1.3, Thyroid Stimulating Hormone (TSH) 1.350, Ethyl Alcohol Level < 0.003 10/09/19 23:18: Urine Color STRAW, Urine Appearance CLEAR, Urine pH 7.0, Urine Specific [place] 1.003, Urine Protein NEGATIVE, Urine Glucose (UA) NEGATIVE, Urine Ketones TRACEH, Urine Blood 1+H, Urine Nitrite NEGATIVE, Urine Bilirubin NEGATIVE, Urine Urobilinogen 0.2, Urine Leukocyte Esterase NEGATIVE, Urine WBC (Auto) 1, Urine RBC (Auto) 9H, Urine Hyaline Casts (Auto) 0, Urine Bacteria (Auto) NEGATIVE, Urine Squamous Epithelial Cells 0, Urine Sperm (Auto) , Urine Random Osmolality 168L, Urine Random Sodium 60, Urine Opiates Screen POSITIVEH, Urine Methadone Screen NEGATIVE, Urine Barbiturates Screen POSITIVEH, Urine Phencyclidine Screen NEGATIVE, Urine Amphetamines Screen NEGATIVE, Urine Benzodiazepines Screen NEGATIVE, Urine Cocaine Metabolite Screen NEGATIVE, Urine Cannabinoids Screen NEGATIVE CBC/BMP Laboratory Tests 10/09/19 18:53 Assessment/Plan 1. Bipolar 1 with psychotic features, manic episode. Flights of ideas, psychomotor agitation, and decreased sleep. Pt on amitriptyline and Primidone at home for PMH of depression and pain, will continue for now. Consider consult psychiatrist at day time for proper taper or other recommendations. Sitter with suicidal precaution. Bedrest with fall precaution. 2. Hx of neuropathy/ permanent nerve damage. Hx of residual numbness and pain after surgical repair after bicep tendon surgery noted per medical record. Cont home med lyrica. D/C home med Gabapentin. Seizure precaution. Cont home med morphine and 3. COPD. Not on inhalers at home. Start albuterol PRN with oxygen therapy PRN 4. Elevated CPK, likely 2/2 psychomotor agitation. Cont to monitor CPK. GFR wnl. 5. HTN. Cont home med Losartan and Propranolol. 6. Hyponatremia, euvolemic, hypo-osmotic, urine osmo>100, likely 2/2 SIADH from primidone on top of TCA. Pt reported primidone is a new medication. No current AMS thus will do fluid restriction with high salt diet for now. Patient mood stable without psychosis after receiving clonidine in ER. Neuro checks Q4H with vital signs. Seizure Precaution. BMPQ6H. Cont home med for now until further ev aluation by psychiatrist for proper taper or other recommendation DVT prophylaxis: SCD and TEDS Plan / VTE VTE Prophylaxis Ordered?: Yes GME ATTESTATION GME ATTESTATION My faculty preceptor for this patient encounter was physically present during the encounter and was fully available. All aspects of the patient interview, examination, medical decision making process, and medical care plan development were reviewed and approved by the faculty preceptor. The faculty preceptor is aware and concurs with the plan as stated in the body of this note and will attest to such by his/her cosignature. ATTENDING NOTE I reviewed the note and agree with the findings as documented. Pls see my addendum from 10/09/19 RAVI MART DO Oct 10, 2019 04:25 ANYI KELLY MD Oct 10, 2019 06:25
[2019-10-10] MEDS: NS 1,000 ML IV SCH (04:35)
[2019-10-10 06:40] LABS: HEMATOCRIT 34.8 % (42.0-52.0); HEMOGLOBIN 12.5 g/dl (13.5-17.5); MEAN CORPUSCULAR HGB CONC 35.9 g/dl (32.0-36.5); PLATELET COUNT, AUTOMATED 209 10^3/uL (150-450); RED BLOOD COUNT 3.91 10^6/uL (4.30-6.10); WHITE BLOOD COUNT 6.4 10^3/uL (4.0-10.0)
[2019-10-10 07:07] LABS: BLOOD UREA NITROGEN 4 MG/DL (7-18); CALCIUM LEVEL 8.2 MG/DL (8.5-10.1); CARBON DIOXIDE LEVEL 26 MEQ/L (21-32); CHLORIDE LEVEL 100 MEQ/L (98-107); CPK CREATINE PHOSPHOKINASE 664 U/L (39-308); CREATININE FOR GFR 0.64 MG/DL (0.70-1.30); GLOMERULAR FILTRATION RATE > 60.0 (>56); GLUCOSE, FASTING 99 MG/DL (70-100); POTASSIUM SERUM 3.9 MEQ/L (3.5-5.1); SODIUM LEVEL 132 MEQ/L (136-145)
[2019-10-10] MEDS ORDERED: D5W/0.45% SODIUM CHLORIDE 1,000 ML IV SCH (08:00)
[2019-10-10] MEDS ORDERED: GABAPENTIN 300 MG CAP PO SCH (09:00)
[2019-10-10] MEDS ORDERED: D5W 1,000 ML IV SCH ×3 (09:00→20:15)
[2019-10-10 09:10] LABS: BLOOD UREA NITROGEN 3 MG/DL (7-18); CALCIUM LEVEL 8.1 MG/DL (8.5-10.1); CARBON DIOXIDE LEVEL 27 MEQ/L (21-32); CHLORIDE LEVEL 102 MEQ/L (98-107); CREATININE FOR GFR 0.62 MG/DL (0.70-1.30); GLOMERULAR FILTRATION RATE > 60.0 (>56); GLUCOSE, FASTING 102 MG/DL (70-100); POTASSIUM SERUM 4.2 MEQ/L (3.5-5.1); SODIUM LEVEL 134 MEQ/L (136-145)
[2019-10-10] MEDS: LOSARTAN 50MG TABLET PO SCH (09:24)
[2019-10-10] MEDS: ATORVASTATIN 20 MG TAB PO SCH (09:24)
[2019-10-10] MEDS: AMITRIPTYLINE 25 MG TAB PO SCH ×3 (09:27→20:45)
[2019-10-10] MEDS: PRIMIDONE 250 MG TAB PO SCH ×2 (09:28→20:46)
[2019-10-10] MEDS ORDERED: DESMOPRESSIN 4 MCG/ML INJ VIAL/AMP (J2597) SQ STA (10:05)
[2019-10-10] MEDS ORDERED: D5W 1000ML IV ONE (10:15)
--- NOTE | 2019-10-10 11:06 | IPNPDOC ---
Text Note Date of Service The patient was seen on 10/10/19. NOTE Subjective: Patient admitted overnight for hyponatremia of indeterminate length of time givenx1 NS bolus in ED and continued on ED order of NS at 200cc/hr overnight. Patient's sodium noted to be 132 on AM labs and D5W was ordered. Patient seen at bedside and notes no acute events overnight. He states he feels significantly better right now, has no complaints, and denies any feelings that he would be better off . This morning he states he has been eating/drinking normally for the past week with no diarrhea, emesis, or increased urination. He notes he has been on primidone for the past month but denies any other medication changes. He states he has been on his other medications for a while now. Objective: General: Pleasant appearing male lying in bed in no acute distress. HEENT: NC, AT. EOMI, no scleral icterus. No pharyngeal erythema, mucous membranes moist. CV: RRR, Normal S1 and S2. No murmurs, gallops, or rubs. Resp: CTAB with full breath sounds. No wheezes, crackles, or rhonchi. No dullness to percussion. Abdomen: Bowel sounds present. Soft, NT, ND. Extremities: No swelling or edema. Neurologic: AOx3, strength +5/5 in bilateral UE, CN II-XII intact. Psych: Normal mood and affect Assessment/Plan: #. Overcorrection of hyponatremia -Patient is euvolemic, hypo-osmotic, with urine osmolarity>100 and urine sodium of 60. -Patient started on D5W, nephrology consulted, recommendations appreciated. #. Suicidal Ideations -At 1600 we were called to bedside for change in mental status. Patient's had just left and patient had been crying the entire time she was there complaining that he would be better off . Per sitter, she had said nothing upsetting. Nursing staff was concerned as he was not responding to sternal rub and appeared locked in. At bedside he recognized me and told me he felt tired and then turned to go to sleep and would not respond after that. Rectal temp of 101 with otherwise normal vitals. Septic work up initiated but preliminarily showing nothing of concern. Rectal tylenol given as well as narcan dose. This did improve his mentation somewhat. Dr. Kwok at bedside and patient responding to questioning and mentating appropriately but still endorsing SI. He denied any fevers, chills, vision changes, headaches, dizziness, chest pain, sob, nausea, vomiting, abdominal pain, weakness, new numbness/tingling in arms and legs, burning on urination or difficulty urinating. CBC wnl, CXR normal, lactic acid normal, BMP with sodium 133. He had no focal neurologic deficits. Psych was consulted, Dr. Ortiz aware. If patient medically cleared by tomorrow, contact her for psych admission, if not, contact Saturday convenience store clerk psych provider. -Continue amitryptiline #. COPD -continue albuterol PRN #. Hypertension -Continue home losartan and propranolol #. hx of neuropathy w/ residual nerve damage - Continue lyrica - Will decrease MS contin -Continue primidone for time being DVT prophylaxis: SCD and TEDS VS,Fishbone, I+O VS, Fishbone, I+O Laboratory Tests 10/09/19 18:53 10/10/19 05:43 10/10/19 08:33 Vital Signs Date Time Temp Pulse Resp B/P (MAP) Pulse Ox O2 Delivery O2 Flow Rate FiO2 10/10/19 10:00 99.2 69 16 136/87 (103) 96 Room Air I&O- Last 24 Hours up to 6 AM 10/10/19 06:00 Intake Total 1000 ml Output Total 1100 ml Balance -100 ml GME ATTESTATION GME ATTESTATION My faculty preceptor for this patient encounter was physically present during the encounter and was fully available. All aspects of the patient interview, examination, medical decision making process, and medical care plan development were reviewed and approved by the faculty preceptor. The faculty preceptor is aware and concurs with the plan as stated in the body of this note and will attest to such by his/her cosignature. ATTENDING NOTE I, Zaynab Kwok, have independently examined this patient and performed my own physical exam, as well as reviewed the documentation and edited where necessary. I have discussed in detail with the resident / student the findings and plan of treatment as documented by the resident / student and edited their note. I agree with their findings and treatment plan and have edited their documentation. I will continue to follow the patient during this hospital stay. JEFF ANDRADE DO Oct 10, 2019 11:06 ZAYNAB KWOK MD Oct 25, 2019 16:36
[2019-10-10 12:23] LABS: BLOOD UREA NITROGEN 4 MG/DL (7-18); CALCIUM LEVEL 8.3 MG/DL (8.5-10.1); CARBON DIOXIDE LEVEL 26 MEQ/L (21-32); CHLORIDE LEVEL 100 MEQ/L (98-107); CREATININE FOR GFR 0.67 MG/DL (0.70-1.30); GLOMERULAR FILTRATION RATE > 60.0 (>56); GLUCOSE, FASTING 137 MG/DL (70-100); POTASSIUM SERUM 3.9 MEQ/L (3.5-5.1); SODIUM LEVEL 132 MEQ/L (136-145)
[2019-10-10] MEDS ORDERED: ACETAMINOPHEN 650 MG SUPP PR PRN (16:30)
[2019-10-10] MEDS ORDERED: NALOXONE INJ 0.4MG/1ML VIAL (J2310 PER 1MG) IV STA (16:35)
[2019-10-10] MEDS ORDERED: ACETAMINOPHEN 650 MG SUPP PR ONE (16:45)
[2019-10-10 16:48] LABS: BLOOD UREA NITROGEN 6 MG/DL (7-18); CALCIUM LEVEL 8.4 MG/DL (8.5-10.1); CARBON DIOXIDE LEVEL 24 MEQ/L (21-32); CHLORIDE LEVEL 101 MEQ/L (98-107); CREATININE FOR GFR 0.65 MG/DL (0.70-1.30); GLOMERULAR FILTRATION RATE > 60.0 (>56); GLUCOSE, FASTING 102 MG/DL (70-100); POTASSIUM SERUM 3.9 MEQ/L (3.5-5.1); SODIUM LEVEL 133 MEQ/L (136-145)
[2019-10-10] MEDS ORDERED: PROPRANOLOL 20 MG TAB As Ordered ONE (18:54)
[2019-10-10] MEDS: PROPRANOLOL 20 MG TAB PO SCH (18:55)
[2019-10-10] MEDS: MONTELUKAST 10 MG TAB PO SCH (20:45)
[2019-10-10 21:03] LABS: BLOOD UREA NITROGEN 5 MG/DL (7-18); CALCIUM LEVEL 8.2 MG/DL (8.5-10.1); CARBON DIOXIDE LEVEL 25 MEQ/L (21-32); CHLORIDE LEVEL 98 MEQ/L (98-107); CREATININE FOR GFR 0.57 MG/DL (0.70-1.30); GLOMERULAR FILTRATION RATE > 60.0 (>56); GLUCOSE, FASTING 111 MG/DL (70-100); POTASSIUM SERUM 3.6 MEQ/L (3.5-5.1); SODIUM LEVEL 130 MEQ/L (136-145)
[2019-10-11] VITALS (7 sets, daily range): BP systolic 143–166; BP diastolic 90–110
--- NOTE | 2019-10-11 00:11 | IPNPDOC ---
Text Note Date of Service The patient was seen on 10/11/19. NOTE 1205 I was asked to evaluate the patient by his RN because he was restless appeared to be having auditory hallucinations, and kept repeating himself. #acute psychotic episode Plan: Ativan PRN / Seroquel / will ask day team to contact Psych VS,Sara, I+O VS, Sara, I+O Laboratory Tests 10/10/19 05:43 10/10/19 08:33 10/10/19 11:34 10/10/19 16:11 10/10/19 20:24 Vital Signs Date Time Temp Pulse Resp B/P (MAP) Pulse Ox O2 Delivery O2 Flow Rate FiO2 10/11/19 00:00 97.8 83 20 143/100 (114) 96 Room Air I&O- Last 24 Hours up to 6 AM 10/11/19 06:00 Intake Total 120 ml Output Total 250 ml Balance -130 ml ANYI KELLY MD Oct 11, 2019 00:11
[2019-10-11] MEDS ORDERED: LORazepam 2 MG/ML VIAL As Ordered ONE (00:12)
[2019-10-11] MEDS ORDERED: LORazepam 2 MG/ML VIAL IM PRN (00:15)
[2019-10-11] MEDS: LORazepam 2 MG/ML VIAL IV PRN ×2 (00:16→15:28)
[2019-10-11 00:26] LABS: BLOOD UREA NITROGEN 6 MG/DL (7-18); CALCIUM LEVEL 8.4 MG/DL (8.5-10.1); CARBON DIOXIDE LEVEL 26 MEQ/L (21-32); CHLORIDE LEVEL 96 MEQ/L (98-107); CREATININE FOR GFR 0.67 MG/DL (0.70-1.30); GLOMERULAR FILTRATION RATE > 60.0 (>56); GLUCOSE, FASTING 114 MG/DL (70-100); POTASSIUM SERUM 3.5 MEQ/L (3.5-5.1); SODIUM LEVEL 127 MEQ/L (136-145)
[2019-10-11] MEDS: QUEtiapine FUMARATE 12.5 MG HALF-TAB PO SCH ×2 (00:27→21:59)
[2019-10-11 04:30] LABS: HEMATOCRIT 35.3 % (42.0-52.0); HEMOGLOBIN 12.4 g/dl (13.5-17.5); MEAN CORPUSCULAR HGB CONC 35.1 g/dl (32.0-36.5); PLATELET COUNT, AUTOMATED 196 10^3/uL (150-450); RED BLOOD COUNT 3.88 10^6/uL (4.30-6.10); WHITE BLOOD COUNT 6.9 10^3/uL (4.0-10.0)
[2019-10-11 04:56] LABS: BLOOD UREA NITROGEN 6 MG/DL (7-18); CALCIUM LEVEL 8.4 MG/DL (8.5-10.1); CARBON DIOXIDE LEVEL 26 MEQ/L (21-32); CHLORIDE LEVEL 98 MEQ/L (98-107); CREATININE FOR GFR 0.68 MG/DL (0.70-1.30); GLOMERULAR FILTRATION RATE > 60.0 (>56); GLUCOSE, FASTING 96 MG/DL (70-100); POTASSIUM SERUM 3.5 MEQ/L (3.5-5.1); SODIUM LEVEL 129 MEQ/L (136-145)
[2019-10-11] MEDS: MORPHINE 15 MG SA TAB PO SCH ×3 (06:26→21:48)
[2019-10-11] MEDS: AMITRIPTYLINE 25 MG TAB PO SCH ×3 (09:38→21:46)
[2019-10-11] MEDS: LOSARTAN 50MG TABLET PO SCH (09:39)
[2019-10-11] MEDS: PRIMIDONE 250 MG TAB PO SCH ×2 (09:39→21:41)
[2019-10-11] MEDS: ATORVASTATIN 20 MG TAB PO SCH (09:39)
[2019-10-11] MEDS: NICOTINE 21MG/24HR 1 EA TRANSDERMAL TD SCH (09:40)
[2019-10-11] MEDS: PREGABALIN 100 MG CAP (LYRICA) PO SCH (10:22)
[2019-10-11 14:16] LABS: BLOOD UREA NITROGEN 7 MG/DL (7-18); CALCIUM LEVEL 8.4 MG/DL (8.5-10.1); CARBON DIOXIDE LEVEL 26 MEQ/L (21-32); CHLORIDE LEVEL 92 MEQ/L (98-107); CREATININE FOR GFR 0.67 MG/DL (0.70-1.30); GLOMERULAR FILTRATION RATE > 60.0 (>56); GLUCOSE, FASTING 110 MG/DL (70-100); POTASSIUM SERUM 3.5 MEQ/L (3.5-5.1); SODIUM LEVEL 125 MEQ/L (136-145)
--- NOTE | 2019-10-11 15:00 | IPNPDOC ---
Text Note Date of Service The patient was seen on 10/11/19. NOTE Subjective: Patient is a 54 year old male with a PMHx of HTN, COPD, Anemia, Pulmonary nodules, DDD, Depression, Vitamin D deficiency, who presented to the hospital with suicidal ideation and was admitted to the hospitalist service on 10/08 for suicidal ideation. Patient was also noted to have hyponatremia of 123. Upon arrival on 10/09 AM, patient was noted to have a sodium of 132. Normal saline was discontinued and D5W was started. Nephrology was called on consultation. Patient was seen and examined at the bedside. Currently he denies any suicidal ideation, denies any CP, SOB or palpitations. Denies any abdominal pain, C/D or urinary discomfort. Objective: Vitals (See below) General: Lying in bed, appears comfortable, AAOx3 HEENT: NC, AT CVS: RRR, +S1S2 Lungs: Fair air entry b/l, -w/r/r Abdomen: Soft, ND, NT Extremities: No edema, - Calf tenderness Assessment and plan: Overcorrection of hyponatremia - Will continue to follow sodium; will await normalization prior to discharge home - s/p D5w and Desmopressin - Nephrology on consultation -Patient is euvolemic, hypo-osmotic, with urine osmolarity>100 and urine sodium of 60. -Patient started on D5W, nephrology consulted, recommendations appreciated. Suicidal ideations - c/w amitriptyline - Bed side sitter - Psychiatry consulted; likely will need IMHU COPD - No evidence of exacerbation - c/w inhaled therapy as ordered HTN - c/w Losartan and Propranolol;l will add holding parameters Hx of Neuropathy w/ residual nerve damage - c/w Gabapentin - Discontinued Pregabalin and reduced MS contin from pain management outpatient prescription - c/w primidone GI prophylaxis - c/w DVT prophylaxis - c/w TEDs/ Sequentials VS,Fishbone, I+O VS, Fishbone, I+O Laboratory Tests 10/10/19 16:11 10/10/19 20:24 10/10/19 23:51 10/11/19 04:24 10/11/19 13:21 Vital Signs Date Time Temp Pulse Resp B/P (MAP) Pulse Ox O2 Delivery O2 Flow Rate FiO2 10/11/19 12:00 98.5 72 18 166/90 (115) 98 Room Air I&O- Last 24 Hours up to 6 AM 10/11/19 05:59 Intake Total 620 ml Output Total 850 ml Balance -230 ml BIJAL KWOK MD Oct 11, 2019 15:00
[2019-10-11 17:17] LABS: BLOOD UREA NITROGEN 7 MG/DL (7-18); CALCIUM LEVEL 8.4 MG/DL (8.5-10.1); CARBON DIOXIDE LEVEL 26 MEQ/L (21-32); CHLORIDE LEVEL 92 MEQ/L (98-107); CREATININE FOR GFR 0.71 MG/DL (0.70-1.30); GLOMERULAR FILTRATION RATE > 60.0 (>56); GLUCOSE, FASTING 156 MG/DL (70-100); POTASSIUM SERUM 3.2 MEQ/L (3.5-5.1); SODIUM LEVEL 126 MEQ/L (136-145)
[2019-10-11] MEDS ORDERED: TOLVAPTAN 15 MG TAB (SAMSCA) PO ONE (17:30)
[2019-10-11] MEDS: GABAPENTIN 100 MG CAP PO SCH ×2 (18:08→21:48)
[2019-10-11] MEDS ORDERED: POTASSIUM CHLORIDE 10 MEQ SR TABLET PO ONE (19:45)
[2019-10-11 20:55] LABS: BLOOD UREA NITROGEN 8 MG/DL (7-18); CALCIUM LEVEL 8.8 MG/DL (8.5-10.1); CARBON DIOXIDE LEVEL 27 MEQ/L (21-32); CHLORIDE LEVEL 97 MEQ/L (98-107); GLOMERULAR FILTRATION RATE > 60.0 (>56); GLUCOSE, FASTING 127 MG/DL (70-100); POTASSIUM SERUM 3.5 MEQ/L (3.5-5.1); SODIUM LEVEL 131 MEQ/L (136-145)
[2019-10-11] MEDS: PROPRANOLOL 20 MG TAB PO SCH (21:46)
[2019-10-11] MEDS: MONTELUKAST 10 MG TAB PO SCH (21:48)
[2019-10-12] VITALS (7 sets, daily range): BP systolic 132–160; BP diastolic 86–106
[2019-10-12 00:36] LABS: BLOOD UREA NITROGEN 8 MG/DL (7-18); CALCIUM LEVEL 8.7 MG/DL (8.5-10.1); CARBON DIOXIDE LEVEL 27 MEQ/L (21-32); CHLORIDE LEVEL 100 MEQ/L (98-107); CREATININE FOR GFR 0.81 MG/DL (0.70-1.30); GLOMERULAR FILTRATION RATE > 60.0 (>56); GLUCOSE, FASTING 131 MG/DL (70-100); POTASSIUM SERUM 3.9 MEQ/L (3.5-5.1); SODIUM LEVEL 134 MEQ/L (136-145)
[2019-10-12 04:46] LABS: HEMATOCRIT 36.1 % (42.0-52.0); HEMOGLOBIN 12.7 g/dl (13.5-17.5); MEAN CORPUSCULAR HEMOGLOBIN 31.9 pg (27.0-33.0); MEAN CORPUSCULAR HGB CONC 35.2 g/dl (32.0-36.5); MEAN CORPUSCULAR VOLUME 90.7 fl (80.0-96.0); PLATELET COUNT, AUTOMATED 245 10^3/uL (150-450); RED BLOOD COUNT 3.98 10^6/uL (4.30-6.10)
[2019-10-12] MEDS: MORPHINE 15 MG SA TAB PO SCH ×3 (05:28→21:01)
[2019-10-12 08:03] LABS: BLOOD UREA NITROGEN 10 MG/DL (7-18); CALCIUM LEVEL 8.6 MG/DL (8.5-10.1); CARBON DIOXIDE LEVEL 27 MEQ/L (21-32); CHLORIDE LEVEL 104 MEQ/L (98-107); CREATININE FOR GFR 0.88 MG/DL (0.70-1.30); GLOMERULAR FILTRATION RATE > 60.0 (>56); GLUCOSE, FASTING 114 MG/DL (70-100); MAGNESIUM LEVEL 2.3 MG/DL (1.8-2.4); POTASSIUM SERUM 4.2 MEQ/L (3.5-5.1); SODIUM LEVEL 138 MEQ/L (136-145)
[2019-10-12] MEDS: LOSARTAN 50MG TABLET PO SCH (09:11)
[2019-10-12] MEDS: GABAPENTIN 100 MG CAP PO SCH ×3 (09:11→20:27)
[2019-10-12] MEDS: NICOTINE 21MG/24HR 1 EA TRANSDERMAL TD SCH (09:11)
[2019-10-12] MEDS: ATORVASTATIN 20 MG TAB PO SCH (09:12)
[2019-10-12] MEDS: AMITRIPTYLINE 25 MG TAB PO SCH ×3 (09:12→20:27)
[2019-10-12] MEDS: PRIMIDONE 250 MG TAB PO SCH ×2 (09:12→20:27)
[2019-10-12 10:32] LABS: APPEARANCE, URINE CLEAR (CLEAR); BACTERIA, URINE AUTO NEGATIVE (NEGATIVE); BILIRUBIN, URINE AUTO NEGATIVE (NEGATIVE); BLOOD, URINE BLOOD 1+ (NEGATIVE); COLOR, URINE STRAW (YELLOW); GLUCOSE, URINE (UA) AUTO NEGATIVE (NEGATIVE); KETONE, URINE AUTO NEGATIVE (NEGATIVE); LEUKOCYTE ESTERASE, URINE AUTO NEGATIVE (NEGATIVE); MUCUS, URINE SMALL (NEGATIVE); NITRITE, URINE AUTO NEGATIVE (NEGATIVE); PROTEIN, URINE AUTO NEGATIVE (NEGATIVE); RBC, URINE AUTO 2 /HPF (0-3); SPECIFIC GRAVITY URINE AUTO 1.005 (1.002-1.035); SQUAMOUS EPITHELIAL CELL UR AU 0 /HPF (0-6); UROBILINOGEN, URINE AUTO 0.2 mg/dL (0.0-2.0); WBC, URINE AUTO 1 /HPF (0-3)
[2019-10-12 10:47] LABS: CREATININE,RANDOM URINE 57.4 MG/DL
--- NOTE | 2019-10-12 11:19 | IPNPDOC ---
Text Note Date of Service The patient was seen on 10/12/19. NOTE Subjective: Patient is a 54 year old male with a PMHx of HTN, COPD, Anemia, Pulmonary nodules, DDD, Depression, Vitamin D deficiency, who presented to the hospital with suicidal ideation and was admitted to the hospitalist service on 10/08 for suicidal ideation. Patient was also noted to have hyponatremia of 123. Upon arrival on 10/09 AM, patient was noted to have a sodium of 132. Normal saline was discontinued and D5W was started. Nephrology was called on consultation. Patient was seen and examined at the bedside. Currently patient does not have any new complaints. Was evaluated by psychiatry yesterday and was cleared for DC home. Currently he denies any CP, SOB or palpitations. Denies any abdominal pain or dysuria. Objective: Vitals (See below) General: Lying in bed, remains comfortable, AAOx3 HEENT: NC, AT CVS: +S1S2 Lungs: Fair air entry b/l, no wheezing / rhonchi / rales Abdomen: Soft, non-distended, non-tender Extremities: LE are without any edema, - Calf tenderness Assessment and plan: Overcorrection of hyponatremia - Sodium has slowly improved - s/p D5w and Desmopressin - s/p Tolvaptan - Plan to follow sodium over next 24 hours - Nephrology on consultation; discussed case; anticipate DC within 24 hours s/p Suicidal ideations - c/w amitriptyline - Bed side sitter still in place - Psychiatry consulted; has cleared for DC home COPD - No evidence of exacerbation - c/w inhaled therapy as ordered HTN - c/w Losartan and Propranolol with holding parameters Hx of Neuropathy w/ residual nerve damage - c/w Gabapentin - Discontinued Pregabalin and reduced MS Contin from pain management outpatient prescription - c/w primidone DVT prophylaxis - c/w TEDs/ Sequentials Disposition: - Anticipate DC tomorrow VS,Jrbone, I+O VS, Jrbone, I+O Laboratory Tests 10/11/19 13:21 10/11/19 16:42 10/11/19 20:22 10/12/19 00:00 10/12/19 04:18 10/12/19 04:21 Vital Signs Date Time Temp Pulse Resp B/P (MAP) Pulse Ox O2 Delivery O2 Flow Rate FiO2 10/12/19 09:11 132/90 10/12/19 07:30 98.4 86 18 99 Nasal Cannula 2.0 I&O- Last 24 Hours up to 6 AM 10/12/19 06:00 Intake Total 1320 ml Output Total 0 ml Balance 1320 ml BIJAL KWOK MD Oct 12, 2019 11:19
[2019-10-12 12:14] LABS: BLOOD UREA NITROGEN 10 MG/DL (7-18); CARBON DIOXIDE LEVEL 27 MEQ/L (21-32); CHLORIDE LEVEL 101 MEQ/L (98-107); CREATININE FOR GFR 0.84 MG/DL (0.70-1.30); GLOMERULAR FILTRATION RATE > 60.0 (>56); GLUCOSE, FASTING 106 MG/DL (70-100); MAGNESIUM LEVEL 2.1 MG/DL (1.8-2.4); POTASSIUM SERUM 4.9 MEQ/L (3.5-5.1); SODIUM LEVEL 135 MEQ/L (136-145)
[2019-10-12] MEDS ORDERED: LORazepam 2 MG/ML VIAL As Ordered ONE ×2 (13:08→17:46)
[2019-10-12] MEDS: LORazepam 2 MG/ML VIAL IV PRN ×2 (13:13→17:50)
[2019-10-12 18:26] LABS: BLOOD UREA NITROGEN 10 MG/DL (7-18); CALCIUM LEVEL 8.8 MG/DL (8.5-10.1); CARBON DIOXIDE LEVEL 26 MEQ/L (21-32); CHLORIDE LEVEL 102 MEQ/L (98-107); CREATININE FOR GFR 0.75 MG/DL (0.70-1.30); GLOMERULAR FILTRATION RATE > 60.0 (>56); GLUCOSE, FASTING 113 MG/DL (70-100); MAGNESIUM LEVEL 2.1 MG/DL (1.8-2.4); POTASSIUM SERUM 3.8 MEQ/L (3.5-5.1); SODIUM LEVEL 136 MEQ/L (136-145)
[2019-10-12] MEDS ORDERED: SLF 3 ML SYR IV PRN (19:00)
[2019-10-12] MEDS: MONTELUKAST 10 MG TAB PO SCH (20:27)
[2019-10-12] MEDS: QUEtiapine FUMARATE 12.5 MG HALF-TAB PO SCH (20:27)
[2019-10-12] MEDS: PROPRANOLOL 20 MG TAB PO SCH (20:27)
[2019-10-12] MEDS: SLF 3 ML SYR IV SCH (20:28)
[2019-10-12] MEDS: LORazepam 2 MG TAB PO PRN (22:10)
[2019-10-13] VITALS: BP 116/76
[2019-10-13 00:59] LABS: BLOOD UREA NITROGEN 12 MG/DL (7-18); CALCIUM LEVEL 8.4 MG/DL (8.5-10.1); CARBON DIOXIDE LEVEL 27 MEQ/L (21-32); CHLORIDE LEVEL 103 MEQ/L (98-107); CREATININE FOR GFR 0.77 MG/DL (0.70-1.30); GLOMERULAR FILTRATION RATE > 60.0 (>56); GLUCOSE, FASTING 98 MG/DL (70-100); MAGNESIUM LEVEL 2.1 MG/DL (1.8-2.4); SODIUM LEVEL 135 MEQ/L (136-145)
[2019-10-13 04:00] VITALS: BP 134/93
[2019-10-13] MEDS: LORazepam 2 MG TAB PO PRN ×2 (04:11→09:31)
[2019-10-13] MEDS: MORPHINE 15 MG SA TAB PO SCH (06:00)
[2019-10-13] MEDS: SLF 3 ML SYR IV SCH (06:01)
[2019-10-13 08:00] VITALS: BP 122/74
[2019-10-13 09:20] VITALS: BP 134/93
[2019-10-13] MEDS: LOSARTAN 50MG TABLET PO SCH (09:20)
[2019-10-13] MEDS: NICOTINE 21MG/24HR 1 EA TRANSDERMAL TD SCH (09:20)
[2019-10-13] MEDS: PRIMIDONE 250 MG TAB PO SCH (09:21)
[2019-10-13] MEDS: ATORVASTATIN 20 MG TAB PO SCH (09:21)
[2019-10-13] MEDS: AMITRIPTYLINE 25 MG TAB PO SCH (09:21)
[2019-10-13] MEDS: GABAPENTIN 100 MG CAP PO SCH (09:21)
[2019-10-13] MEDS: ALBUTEROL 90 MCG/ACT 8GM HFA INHALER INH PRN ×2 (10:54)
[2019-10-13 12:00] VITALS: BP 138/92
[2019-10-13] MEDS ORDERED: ALPRAZolam 0.25 MG TAB PO ONE (12:15)
--- NOTE | 2019-10-13 16:12 | IPN ---
DATE: 10/12/2019 SUBJECTIVE: Patient was seen and examined at the bedside today morning. He is afebrile, hemodynamically stable. His sodium level has improved to normal range. He denies any active complaints at this time. OBJECTIVE: Vital signs: Temperature is 98.6 degrees Fahrenheit, blood pressure 138/91, pulse is 101, respiratory rate of 18, saturating 96% on room air. Intake and output: Urine output recorded is 500 mL. Weight in the bed scale is 72.9 kg. PHYSICAL EXAMINATION: General: Patient is awake, alert, oriented times three, sitting up in the bed, no apparent distress. Head and neck exam: Extraocular muscles intact. Pupils equally round and reactive to light. Mucous membranes are moist. Neck is supple. There is no jugular venous distension (JVD). Cardiovascular: S1, S2, regular rate. No edema of the bilateral lower extremities. Respiratory: Chest is clear to auscultation bilaterally. Bilateral equal air entry. No rales or rhonchi. Abdomen: Soft, positive bowel sounds, nontender, no organomegaly. Musculoskeletal: No clubbing or cyanosis. Pulses are 2+. Central nervous system (ONSITE CASE MANAGER): No focal deficits. Power is 5/5 in all extremities. LABORATORY REVIEW: CBC showed WBC of 7, hemoglobin is 12.7, platelets are 245. BMP showed sodium 135, potassium 4.9, chloride 101, bicarbonate 27, BUN 10, creatinine is 0.8. Urine random osmolality is 186 and random sodium is 18. CURRENT INPATIENT MEDICATIONS: Patients medications were all reviewed by myself. He was given a dose of tolvaptan yesterday. There is no other significant change in the medications today as compared with yesterday. ASSESSMENT AND PLAN: 1. Hyponatremia. It is secondary to syndrome of inappropriate antidiuretic hormone secretion (SIADH) which is either induced by one of the medications or his psychosis. He was given a dose of tolvaptan. Sodium is 135 on the latest labs. If sodium starts dropping again then we would probably need to start the patient on Lasix and salt tablets. 2. Hypertension. Continue current dose of losartan 50 mg by mouth daily and propranolol 20 mg by mouth daily. 3. Agitation and psychosis. Patient is on multiple antipsychotic medications including amitriptyline, as needed Ativan, primidone, and quetiapine. Okay to continue current medications at this time. MTDD
--- NOTE | 2019-10-13 19:38 | DS.PDOC ---
Discharge Summary General Date of Admission Oct 09, 2019 at 23:19 Date of Discharge 10/13/2019 Discharge Summary Date of Admission: October 07, 2019 Date of Discharge: October 13, 2019 Attending Physician: Christi PCP: see below Admission Diagnosis: hyponatremia. Discharge Diagnosis: hyponatremia secondary to society age field Secondary Diagnoses: generalized anxiety disorder Consultations: psychiatry, nephrology Procedures: none HPI: 54-year-old male with past medical history of hypertension, COPD, anemia, pulmonary nodules, depression was admitted for hyponatremia Hospital Course: initial hyponatremia-rapidly corrected. Nephrology was subsequently consulted and patient improved appropriately after slowing down T5 W. He was given one dose of desmopressin and also received one dose of tolvaptan. On discharge patient sodium is ranging between 136 to 135, likely baseline. Reviewed with nephrologycynthia for discharge. On presentation there was some concern for suicidal ideation - patient was evaluated by psychiatry and was cleared for any suicidal ideation or need for inpatient psychiatry treat ment. Physical Exam: General: no acute distress HEENT: normocephalic Neck: supple Heart: normal heart sounds Lungs: no abnormalities on auscultation GI: soft Neuro: no focal deficits Psych: normal mood vitals as below Pending Lab or Test Results: none Immunizations Given During Admission: none Discharge Disposition: stable Diet: cardiac Discharge Medications: see attached Follow-up Appointments: nephrology in 1 to 2 weeks Time spent: 35 minutes Vital Signs/I&Os Vital Signs Date Time Temp Pulse Resp B/P (MAP) Pulse Ox O2 Delivery O2 Flow Rate FiO2 10/13/19 12:00 98.2 91 20 138/92 (107) 99 Room Air 10/13/19 00:00 2.0 I&O- Last 24 Hours up to 6 AM 10/13/19 06:00 Intake Total 770 ml Output Total 675 ml Balance 95 ml Laboratory Data Labs 24H Laboratory Tests 2 10/13/19 00:20: Anion Gap 5L, Glomerular Filtration Rate > 60.0, Calcium Level 8.4L, Magnesium Level 2.1 CBC/BMP Laboratory Tests 10/13/19 00:20 Microbiology Microbiology 10/10/19 Blood Culture - Preliminary, Resulted No Growth after 72 hours. All specime... 10/10/19 Blood Culture - Preliminary, Resulted No Growth after 72 hours. All specime... Discharge Medications Scheduled Amitriptyline HCl (Amitriptyline HCl) 25 Mg Tablet, 25 MG PO TID, (Reported) Atorvastatin Calcium (Atorvastatin Calcium) 40 Mg Tablet, 40 MG PO DAILY, (Reported) Gabapentin (Gabapentin) 300 Mg Cap, 300 MG PO TID, (Reported) Losartan Potassium (Losartan Potassium) 50 Mg Tablet, 50 MG PO DAILY, (Reported) Montelukast Sodium (Singulair) 10 Mg Tablet, 10 MG PO QHS, (Reported) Morphine Sulfate (Ms Contin) 15 Mg Tablet.er, 15 MG PO Q8H, (Reported) Nystatin (Nystatin) 15 Gm Cream..g., 1 APPLIC TOP BID, (Reported) groin Primidone (Primidone) 250 Mg Tablet, 62.5 MG PO BID, (Reported) Propranolol HCl (Propranolol HCl) 20 Mg Tablet, 20 MG PO QPM, (Reported) Allergies Coded Allergies: Penicillins (Verified Allergy, Unknown, 08/01/19) UNKNOWN ROSIBEL MOODY DO Oct 13, 2019 19:38
--- NOTE | 2019-10-14 09:39 | IPN ---
DATE: 10/13/2019 SUBJECTIVE: Patient was seen and examined at the bedside today morning. He is doing physical therapy. He has been walking in the hallways now. He is hemodynamically stable. His sodium is stable at 135 today. He denies any active complaints at this time. OBJECTIVE: Vital signs: Temperature 98.2 degrees Fahrenheit, blood pressure 138/92, pulse 91, respiratory rate 20, saturating 99% on room air. Intake and output: Urine output recorded as 175 mL since overnight. Weight in the bed scale is 73.5 kg. PHYSICAL EXAMINATION: General: Patient is awake, alert and oriented x3, in no apparent distress. Head and neck exam: Extraocular muscles intact. Pupils equally round and reactive to light. Neck is supple. There is no JVD. Cardiovascular: S1, S2, regular rate. No edema of the bilateral lower extremities. Respiratory: Chest is clear to auscultation bilaterally. Bilateral equal air entry. Abdomen: Soft, positive bowel sounds. Musculoskeletal: No clubbing or cyanosis. RESIDENT CARE DIRECTOR: No focal deficits. LABORATORY REVIEW: CBC is from yesterday. BMP done today showed sodium 135, potassium 4, chloride 103, bicarb 27, BUN 12, creatinine 0.77, calcium 8.4. Magnesium 2.1. CURRENT INPATIENT MEDICATIONS: Patients medications were all reviewed by myself. There is no other significant change in the medications today as compared with yesterday. ASSESSMENT AND PLAN: 1. Hyponatremia: Patient had SIADH. He required one dose of Tolvaptan during this hospitalization. Sodium is staying stable at 135 with fluid restriction only. Okay to continue current medical regimen. 2. Hypertension: Blood pressure is controlled with Propranolol and Losartan. DISPOSITION: Patient is okay to be discharged from nephrology standpoint. He will need to follow-up with nephrology within one week of discharge from the hospital. YULIET
--- NOTE | 2019-10-27 14:54 | ECGEPIP ---
[facility] - ED Test Date: 2019-10-09 Pat Name: TAMARA MONROY Department: Room: [place] [address] Gender: Male Financial Investment Manager: DARYA : 1965 Requested By: Margaret López Order Number: [id number] Reading MD: Margaret López Measurements Intervals [place] Rate: 93 P: 69 MN: 144 QRS: -59 QRSD: 90 T: 50 QT: 343 QTc: 428 Interpretive Statements SINUS RHYTHM POSSIBLE LEFT ATRIAL ENLARGEMENT POSSIBLE RIGHT VENTRICULAR CONDUCTION DELAY LEFT ANTERIOR FASCICULAR BLOCK ABNORMAL ECG SEE SCANNED DOWNTIME REPORT
--- NOTE | 2019-11-09 07:11 | REP ---
PORTABLE CHEST X-RAY CLINICAL: Fever. COMPARISON: 10/09/2019. FINDINGS: Mediastinum and cardiac silhouette normal. Lung hensley demonstrate chronic interstitial changes and calcified left lower lobe nodule. No acute consolidation, effusion, or pneumothorax. Skeletal structures demonstrate age- related changes. IMPRESSION: Chronic stable changes. No acute cardiopulmonary process. MTDD
--- NOTE | 2019-11-09 07:11 | REP ---
PORTABLE CHEST X-RAY CLINICAL: Altered mental status. COMPARISON: 08/01/2019. FINDINGS: Mediastinal and cardiac silhouette are within normal limits and stable. Lung hensley demonstrate chronic changes including calcified granuloma in the left lower lung zone. No acute consolidation, effusion, or pneumothorax. Skeletal structures intact. IMPRESSION: Stable chest x-ray. No acute cardiopulmonary process. MTDD
--- NOTE | 2019-11-19 08:18 | CR ---
DATE: 10/11/2019 HISTORY OF PRESENT ILLNESS: I was asked to see this 63-year-old man who was admitted to the medical service with weakness, dehydration, and found to have hyponatremia. It appears that in the Emergency Room, the patient kept saying that he was dying and he was very anxious. Then it sounded as though he continued to be very anxious. When the visited yesterday he was crying the whole time and he started to make vague suicidal thoughts such as I shouldnt be alive and this is why I was asked to evaluate the patient. Apparently last night the patient was given some Ativan p.r.n. and a low dose of Seroquel 12.5 mg. The patient apparently was thought to possibly be having some auditory hallucinations. Today, however, the patient appeared to be doing fine. He could not remember at all having had said anything about feeling that he was going to or that he should not be alive. The patient is seen in the company of his . He verifies the above. He denies having any problems with depression, denies any mood symptoms and he is denying any suicidal thoughts. Apparently a little bit before I went to see him, however, the patient had told staff that he had had a seizure and that he was given phenobarbital which is not true. The patient insists that this happened. He also mentioned that last night he had a similar episode and I did advise the patient that indeed last night he was given some medications but it was not phenobarbital. The patient's was present. She states that she is not aware of him having reported any prior episodes of believing that he had a seizure. He does say that he had an accident a few years ago that he has had a lot of problems after that and is currently being evaluated by a neurologist. The patient has no history of any prior psychiatric treatment. Of note he is on Amitriptyline 25 mg three times a day but it is more for pain. PAST PSYCHIATRIC HISTORY: This is negative for any prior inpatient or outpatient psychiatric treatment and no history of suicidal attempt. FAMILY HISTORY: The patient has no history of any family psychiatric problems or any suicide. SUBSTANCE ABUSE: He denies any problems with alcohol or drugs. MEDICAL HISTORY: As I said, he was admitted with dehydration and found to have hyponatremia. He does have a history of chronic low back pain due to degenerative disk disease, macrocytic anemia, chronic obstructive pulmonary disease (COPD), and he has some hand tremors being worked up by the neurologist. MENTAL STATUS EXAM: The patient is sitting up in bed. He was cooperative, pleasant, and he was denying any suicidal ideations. He was verbally spontaneous and there was no form of thought disorder. He said that his mood was okay. Affect appropriate to mood. He was not psychotic. He was not suicidal or homicidal. Concentration is fair. Memory is grossly intact. Insight and judgment appear to be good. DIAGNOSIS: No diagnosis. RECOMMENDATIONS: At this point from a psychiatric point of view the patient appears to be stable. It is possible that maybe the patient was having some delirium. They thought last night he might have been having some auditory hallucinations and he was insistent that he was going to . He is denying that he has any suicidal thoughts, however, so at this point I do not have any recommendations. Please re-consult us if further symptoms occur. JIMBOD
== END 2019-10-13 13:19 | disposition home or self-care (01) | DRG 425 ==
LOC: M ED 17:58 → M ED INP 23:19 → M MSPAV 10-10 01:00 → M PCU 10-10 18:23
PROVIDERS: ADMIT Internal Medicine; ATTEND Internal Medicine
DX: E87.1 Hypo-osmolality and hyponatremia (principal); F41.1 Generalized anxiety disorder; I10 Essential (primary) hypertension; J44.9 Chronic obstructive pulmonary disease, unspecified; D64.9 Anemia, unspecified; R91.1 Solitary pulmonary nodule; Z79.899 Other long term (current) drug therapy; Z88.0 Allergy status to penicillin; E55.9 Vitamin D deficiency, unspecified; F31.2 Bipolar disorder, current episode manic severe with psychotic features; G62.9 Polyneuropathy, unspecified; R45.851 Suicidal ideations

== ENCOUNTER 2019-10-16 05:24 | Emergency (ER) | payer BC, MEDICARE ==
[~2019-10-16 05:24] MED LIST changes: +LYRI300C PO
[2019-10-17] MEDS ORDERED: SPIR1CAP INH (09:54)
[2019-10-17] MEDS ORDERED: DIAZ2TAB PO (09:54)
== END 2019-10-16 05:47 | disposition left against medical advice (07) ==
LOC: M ED 05:24
DX: Z53.21 Procedure and treatment not carried out due to patient leaving prior to being seen by health care provider (principal)

== ENCOUNTER 2019-10-17 06:41 | Inpatient (IN) | payer BC, MEDICARE ==
[~2019-10-17] VITALS: Ht 205.7 cm; Wt 75.0 kg
[2019-10-17] MEDS ORDERED: LORazepam 2 MG/ML VIAL IV STA ×2 (07:36→11:16)
--- NOTE | 2019-10-17 07:38 | REPVR ---
PROCEDURE INFORMATION: Exam: CT Head Without Contrast Exam date and time: 10/17/2019 7:20 AM Age: 54 years old Clinical indication: Altered mental status/memory loss; Confusion or disorientation TECHNIQUE: Imaging protocol: Computed tomography of the head without contrast. Radiation optimization: All CT scans at this facility use at least one of these dose optimization techniques: automated exposure control; mA and/or kV adjustment per patient size (includes targeted exams where dose is matched to clinical indication); or iterative reconstruction. COMPARISON: CT Head without contrast 10/09/2019 6:06 PM FINDINGS: Brain: The degree of generalized cerebral and cerebellar volume loss appears advanced for age. There is no acute intracranial hemorrhage. No extra-axial fluid collection. No evidence of acute infarct. Cornejo white differentiation is intact. There is no evidence of mass. There is no mass effect or midline shift. Ventricles: No ventriculomegaly. Bones/joints: No acute fracture. Sinuses: Unremarkable as visualized. No acute sinusitis. Mastoid air cells: No significant mastoid effusion. Vasculature: Calcification is noted in intracranial vascularity greatest in carotid arteries. Soft tissues: Unremarkable as visualized. IMPRESSION: No evidence of acute intracranial abnormality. Electronically signed by: Luz Maria Oswald On 10/17/2019 07:37:36 AM
--- NOTE | 2019-10-17 07:42 | REPVR ---
PROCEDURE INFORMATION: Exam: XR Chest, 1 View Exam date and time: 10/17/2019 7:15 AM Age: 54 years old Clinical indication: Other: Altered mental status TECHNIQUE: Imaging protocol: XR of the chest Views: 1 view. COMPARISON: CR PORTABLE CHEST X-RAY 10/10/2019 4:40 PM FINDINGS: Lungs: No consolidation. Calcified left lower lung granuloma. Pleural space: No significant visible pleural effusion. No pneumothorax. Heart/Mediastinum: No significant cardiomegaly. Bones/joints: No acute finding. IMPRESSION: No acute cardiopulmonary finding. Electronically signed by: Luz Maria Oswald On 10/17/2019 07:42:02 AM
[2019-10-17 07:43] LABS: BASO % 0.5 % (0.0-1.0); EOS % 0.1 % (0.0-3.0); HEMATOCRIT 37.9 % (42.0-52.0); HEMOGLOBIN 13.2 g/dl (13.5-17.5); LYMPH # 0.7 10^3/uL (1.5-5.0); LYMPH % 8.3 % (24.0-44.0); MEAN CORPUSCULAR HEMOGLOBIN 31.7 pg (27.0-33.0); MEAN CORPUSCULAR HGB CONC 34.8 g/dl (32.0-36.5); MEAN CORPUSCULAR VOLUME 91.1 fl (80.0-96.0); MONO # 0.4 10^3/uL (0.0-0.8); MONO % 5.4 % (0.0-5.0); NEUTROPHILS # 6.7 10^3/uL (1.5-8.5); NEUTROPHILS % 85.1 % (36.0-66.0); PLATELET COUNT, AUTOMATED 256 10^3/uL (150-450); RED BLOOD COUNT 4.16 10^6/uL (4.30-6.10); WHITE BLOOD COUNT 7.9 10^3/uL (4.0-10.0)
[2019-10-17] MEDS ORDERED: LOSARTAN 50MG TABLET PO ONE (07:45)
[2019-10-17] MEDS ORDERED: LORazepam 2 MG/ML VIAL As Ordered ONE (07:49)
[2019-10-17 08:17] LABS: ACETAMINOPHEN LEVEL < 2.0 UG/ML (10.0-30.0); ALBUMIN 3.9 GM/DL (3.2-5.2); ALT/SGPT 18 U/L (12-78); BILIRUBIN,DIRECT 0.1 MG/DL (0.0-0.2); BILIRUBIN,TOTAL 0.3 MG/DL (0.2-1.0); ETHYL ALCOHOL (ETHANOL) < 0.003 % (0.000-0.010); NT-PRO BNP 283 PG/ML (<125); SALICYLATE LEVEL 3.8 MG/DL (5.0-30.0); THYROID STIMULATING HORMONE 0.657 uIU/ML (0.358-3.740); TOTAL PROTEIN 6.9 GM/DL (6.4-8.2)
[2019-10-17 09:05] LABS: CK-MB VALUE MASS 2.2 NG/ML (<3.6); CPK CREATINE PHOSPHOKINASE 305 U/L (39-308); MB/CK RELATIVE INDEX 0.72 (< OR =4)
[2019-10-17] MEDS ORDERED: NS 1,000 ML IV ONE (09:15)
[2019-10-17] MEDS ORDERED: SPIR1CAP INH (09:54)
[2019-10-17] MEDS ORDERED: DIAZ2TAB PO (09:54)
[2019-10-17] MEDS ORDERED: PILL CUTTER 1 EACH XX PRN (11:30)
[2019-10-17 13:25] VITALS: BP 130/70
[2019-10-17] MEDS: TIOTROPIUM INHALER/CAPSULE (SPIRIVA) INH SCH (13:28)
[2019-10-17] MEDS: ENOXAPARIN 40MG/0.4ML SYRINGE (J1650 PER 10MG) SC SCH (13:33)
[2019-10-17] MEDS: ACETAMINOPHEN TAB 650MG DOSE (2X325MG) PO PRN (13:34)
[2019-10-17] MEDS: NYSTATIN CREAM 15 GM TOP SCH ×2 (13:35→20:24)
[2019-10-17 14:00] VITALS: BP 130/70
--- NOTE | 2019-10-17 14:59 | HPEPDOC ---
[facility] Medical History & Physical Date of Admission Oct 17, 2019 Date of Service: Oct 17, 2019 Attending Physician: DUNCAN MAYER MD History and Physical CHIEF COMPLAINT: AMS HISTORY OF PRESENT ILLNESS: 54 yo M with a PMH of depression, chronic pain, and HTN who was recently admitted to [facility] for suicidal ideation and césar psychosis as well as hyponatremia who during the admission had nephrology consulted and hyponatremia resolved, and some of his psychotropic medications held including lyrica, baclofen, hydrocodone, SOMA as well as ibuprofen. Despite medical documentation of psychiatry being consulted to evaluate him while on medicine and internal medicine reporting clearance for discharge from psychiatry, there was never documented recommendations from psychiatry in the form of a consultation note. He was discharged home and now returns, brought in per the urging of his , after he was noted to have been awake for prolonged time >24h, not taking any PO, confused, threatening to kill his and himself. I should note that yesterday, he was seen by his PCP and she stopped his cymbalta and diazepam. In the ED, he was hemodynamically stable but agitated and received 1mg of IV ativan with good effect after which he was more agreeable to examination. Initial work up was notable for grossly normal workup thus far with WBC 7.9, Hgb 13.2, hct 37, platelets 256, istat Na 134, TSH 0.657, AST 13, ALT 18, Tbili 0.3, Dbili 0.1, negative tox screen, ammonia 10, unremarkable noncontrast head CT without acute pathology and CXR without acute cardiopulmonary. He is now being admitted to medicine for acute encephalopathy which may be related to acute withdrawal from his psychotropic medications vs. new psychiatric pathology given that he presented with the same when he was fully on his medications before any were discontinued. Past Medical History: Chronic low back pain(DDD) Right arm pain-biceps tendon rupture, s/p surgical repair in 2013 w/ residual numbness and pain, [facility] ortho Dr. 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 COPD Surgical History: Biceps tendon rupture repair Colonoscopy 2016 Right rotator cuff repair-right 06/2018 Left rotator cuff tear repair 02/2017 Social History Non smoker, no alcohol, no illicit drugs Review of Systems: Constitutional: Denies chills, Fever, malaise Pulmonary: No recent cough, SOB, chest pain Cardiovascular: No Chest Pain, Palpitations, arm or jaw pain Gastrointestinal: Reports that he felt bloated earlier but felt better once he had a bowel movement, no current nausea, recent emesis or blood in stool Neurological: Reports that he has long history of chronic pain with some numbness as well Psych: Does not answer things directly when asked. Tangential, appears to have flight of ideas. He does endorse insomina and feels worried and depressed. Did not directly answer to homicidality references. Physical Examination General: Alert, No Acute Distress, Anxious appearing Eye: Conjunctiva & lids normal, EOMI, anicteric ENT: Atraumatic, dry mucous membranes, tongue Midline Neck: Supple Chest: Normal air movement, no Rales, Rhonchi, Wheezing, breathing comfortably on room air Heart: RRR, no mrg Abdomen: Normal bowel sounds, Soft, NTND Extremity: No LE Edema, no tenderness, no swelling Skin: Normal turgor and temperature Neuro: 5/ X4 ext, Normal Tone, Sensation Intact, Cranial Nerves 3-12 NL, no dysarthria, no neurological deficits noted Psych: Anxiety, Oriented x [address] but not date, has seemingly normal conversation but becomes tangential. Has delusions. No confirmed hallucinations Laboratory Data: Discussed above Imaging: Discussed above Assessment/Plan 1. Encephalopathy vs. psychosis: Not sure if patient carries a psychiatric diagnosis beyond depression but per does not recall anything beyond the depression. Now with psychomotor agitation, decreased sleep, delusions, suicidality and at times césar psychosis. -Pt on primidone at home for PMH of depression and pain, will continue for now. Will hold amitriptyline -Consult psychiatrist -Sitter with suicidal precaution -check BMP, was recently hyponatremic -ammonia, Cr, LFTs and TSH wnl -nonfocal neurological examination with unremarkable CT head -Responded well to ativan in the ED, will give ativan 1Q6H PRN for agitation 2. Hx of neuropathy/ permanent nerve damage. Hx of residual numbness and pain after surgical repair after bicep tendon surgery noted per medical record. -Holding all psychotropic meds, will give as pain medication per pain assess ment, thus far no complaints 3. COPD. Not on inhalers at home. Stable 4. HTN. Cont home med Losartan and Propranolol. 5. History of hyponatremia: Thus far Na was 134 -monitor sodium daily DVT prophylaxis: SCD and TEDS Vital Signs Vital Signs Date Time Temp Pulse Resp B/P (MAP) Pulse Ox O2 Delivery O2 Flow Rate FiO2 10/17/19 13:25 97.2 78 18 130/70 (90) 98 Room Air Laboratory Data Labs 24H Laboratory Tests 2 10/17/19 07:17: Immature Granulocyte % (Auto) 0.6, Neutrophils (%) (Auto) 85.1H, Lymphocytes (%) (Auto) 8.3L, Monocytes (%) (Auto) 5.4H, Eosinophils (%) (Auto) 0.1, Basophils (%) (Auto) 0.5, Neutrophils # (Auto) 6.7, Lymphocytes # (Auto) 0.7L, Monocytes # (Auto) 0.4, Eosinophils # (Auto) 0.0, Basophils # (Auto) 0.0, Nucleated Red Blood Cells % (auto) 0.0, Lactic Acid Level 1.7, Total Bilirubin 0.3, Direct Bilirubin 0.1, Aspartate Amino Transf (AST/SGOT) 13, Alanine Aminotransferase (ALT/SGPT) 18, Alkaline Phosphatase 101, Ammonia < 10, Total Creatine Kinase 305, Creatine Kinase MB 2.2, Creatine Kinase MB Relative Index 0.72, [id number]-Type Natriuretic Peptide 283H, Total Protein 6.9, Albumin 3.9, Albumin/Globulin Ratio 1.3, Thyroid Stimulating Hormone (TSH) 0.657, Salicylates Level 3.8L, Acetaminophen Level < 2.0L, Ethyl Alcohol Level < 0.003 CBC/BMP Laboratory Tests 10/17/19 07:17 Microbiology Microbiology 10/17/19 Blood Culture, Received Pending 10/17/19 Blood Culture, Received Pending Home Medications Scheduled Amitriptyline HCl (Amitriptyline HCl) 25 Mg Tablet, 75 MG PO QHS Atorvastatin Calcium (Atorvastatin Calcium) 40 Mg Tablet, 40 MG PO QHS Gabapentin (Gabapentin) 300 Mg Cap, 300 MG PO TID Losartan Potassium (Losartan Potassium) 50 Mg Tablet, 50 MG PO DAILY Montelukast Sodium (Singulair) 10 Mg Tablet, 10 MG PO QHS Morphine Sulfate (Ms Contin) 15 Mg Tablet.er, 15 MG PO Q8H Nystatin (Nystatin) 15 Gm Cream..g., 1 APPLIC TOP BID APPLY TO GROIN Primidone (Primidone) 250 Mg Tablet, 62.5 MG PO TID Tiotropium Gilbert (Spiriva) 18 Mcg Cap.w.dev, 1 CAP INH DAILY Scheduled PRN Diazepam (Diazepam) 2 Mg Tablet, 2 MG PO BID PRN for ANXIETY/AGITATION Allergies Coded Allergies: Penicillins (Verified Allergy, Unknown, 08/01/19) UNKNOWN A-FIB/CHADSVASC A-FIB History Current/History of A-Fib/PAF?: No Current PO Anticoag Therapy: No Age/Risk Factor Scoring CHADSVASC: CHADSVASC Response (Comments) Value Age Risk Factor Age < 65 years old 0 Gender Risk Factor Male 0 Hx of CHF No 0 Hx of HTN Yes 1 Hx of Stroke/TIA/or VTE No 0 Hx of Diabetes No 0 Hx of Vascular Disease No 0 Total 1 Treatment Treatment ordered: NONE Reason Anticoagulant not given: Not indicated/[id number] DUNCAN MAYER MD Oct 17, 2019 14:58
[2019-10-17 15:23] LABS: BLOOD UREA NITROGEN 7 MG/DL (7-18); CALCIUM LEVEL 8.5 MG/DL (8.5-10.1); CARBON DIOXIDE LEVEL 24 MEQ/L (21-32); CHLORIDE LEVEL 103 MEQ/L (98-107); CREATININE FOR GFR 0.65 MG/DL (0.70-1.30); GLOMERULAR FILTRATION RATE > 60.0 (>56); GLUCOSE, FASTING 94 MG/DL (70-100); POTASSIUM SERUM 3.6 MEQ/L (3.5-5.1); SODIUM LEVEL 135 MEQ/L (136-145)
[2019-10-17] MEDS ORDERED: PRIMIDONE 125MG PER 1/2 TABLET PO SCH (16:00)
[2019-10-17] MEDS: PRIMIDONE 250 MG TAB PO SCH ×2 (17:22→20:24)
[2019-10-17] MEDS: MONTELUKAST 10 MG TAB PO SCH (20:24)
[2019-10-17] MEDS: ATORVASTATIN 20 MG TAB PO SCH (20:24)
[2019-10-17 22:00] VITALS: BP 132/85
[2019-10-18 06:17] LABS: HEMATOCRIT 32.8 % (42.0-52.0); HEMOGLOBIN 11.4 g/dl (13.5-17.5); MEAN CORPUSCULAR HEMOGLOBIN 32.1 pg (27.0-33.0); MEAN CORPUSCULAR HGB CONC 34.8 g/dl (32.0-36.5); MEAN CORPUSCULAR VOLUME 92.4 fl (80.0-96.0); PLATELET COUNT, AUTOMATED 246 10^3/uL (150-450); RED BLOOD COUNT 3.55 10^6/uL (4.30-6.10); WHITE BLOOD COUNT 5.8 10^3/uL (4.0-10.0)
[2019-10-18 06:25] LABS: ALBUMIN 3.4 GM/DL (3.2-5.2); ALT/SGPT 14 U/L (12-78); BILIRUBIN,TOTAL 0.4 MG/DL (0.2-1.0); BLOOD UREA NITROGEN 9 MG/DL (7-18); CALCIUM LEVEL 8.5 MG/DL (8.5-10.1); CARBON DIOXIDE LEVEL 26 MEQ/L (21-32); CHLORIDE LEVEL 102 MEQ/L (98-107); CREATININE FOR GFR 0.78 MG/DL (0.70-1.30); GLOMERULAR FILTRATION RATE > 60.0 (>56); GLUCOSE, FASTING 99 MG/DL (70-100); POTASSIUM SERUM 3.8 MEQ/L (3.5-5.1); SODIUM LEVEL 133 MEQ/L (136-145); TOTAL PROTEIN 6.1 GM/DL (6.4-8.2)
[2019-10-18 06:54] VITALS: BP 127/88
[2019-10-18] MEDS: TIOTROPIUM INHALER/CAPSULE (SPIRIVA) INH SCH (07:46)
[2019-10-18] MEDS: ENOXAPARIN 40MG/0.4ML SYRINGE (J1650 PER 10MG) SC SCH (08:56)
[2019-10-18] MEDS: PRIMIDONE 250 MG TAB PO SCH ×3 (08:56→21:12)
[2019-10-18] MEDS: LOSARTAN 50MG TABLET PO SCH (08:57)
[2019-10-18] MEDS: NYSTATIN CREAM 15 GM TOP SCH ×2 (11:10→21:12)
[2019-10-18] MEDS: NICOTINE 21MG/24HR 1 EA TRANSDERMAL TD SCH (11:10)
[2019-10-18] MEDS: diazePAM 2 MG TAB PO PRN ×2 (13:34→22:30)
[2019-10-18 14:00] VITALS: BP 128/87
--- NOTE | 2019-10-18 14:04 | IPNPDOC ---
Text Note Date of Service The patient was seen on 10/18/19. NOTE Subjective: -No issues overnight -Feels anxious at this time and asking for some medication -No current pain complaints -consulted psych, pending evaluation by psychiatry Physical Examination General: Alert, No Acute Distress, Anxious appearing Eye: Conjunctiva & lids normal, EOMI, anicteric ENT: Atraumatic, dry mucous membranes, tongue Midline Neck: Supple Chest: Normal air movement, no Rales, Rhonchi, Wheezing, breathing comfortably on room air Heart: RRR, no mrg Abdomen: Normal bowel sounds, Soft, NTND Extremity: No LE Edema, no tenderness, no swelling Skin: Normal turgor and temperature Neuro: 06/15 X4 ext, Normal Tone, Sensation Intact, Cranial Nerves 3-12 NL, no dy sarthria, no neurological deficits noted Psych: AOx3, however inaccurate history of reason for admission and reason for last admission. Reports feeling anxious Laboratory Data: Reviewed. Stable CBC and BMP wnl Imaging: CT head without acute pathology and CXR wnl Assessment/Plan 1. Encephalopathy vs. psychosis: Not sure if patient carries a psychiatric diagnosis beyond depression but per does not recall anything beyond the depression. Now admitted with psychomotor agitation, decreased sleep, delusions, suicidality and at times césar psychosis. -Pt on primidone at home for PMH of depression and pain, will continue for now. -Held his amitriptyline -Consulted psychiatrist, pending recommendations, on our discussion, he was ok with continuing 2mg diazepam PRN -Sitter with suicidal precaution -check BMP, was recently hyponatremic -ammonia, Cr, LFTs and TSH wnl -nonfocal neurological examination with unremarkable CT head -Responded well to ativan in the ED, no benzos ordered at this time 2. Hx of neuropathy/ permanent nerve damage. Hx of residual numbness and pain after surgical repair after bicep tendon surgery noted per medical record. -Holding all psychotropic meds, will give as pain medication per pain assessment, thus far no complaints 3. COPD. Not on inhalers at home. Stable 4. HTN. Cont home med Losartan and Propranolol. 5. History of hyponatremia: -monitor sodium daily, na 133 today, at his baseline DVT prophylaxis: SCD and TEDS VS,Fishbone, I+O VS, Fishbone, I+O Laboratory Tests 10/17/19 14:35 10/18/19 05:19 Vital Signs Date Time Temp Pulse Resp B/P (MAP) Pulse Ox O2 Delivery O2 Flow Rate FiO2 10/18/19 06:54 98.1 89 18 127/88 (101) 98 Room Air I&O- Last 24 Hours up to 6 AM 10/18/19 06:00 Intake Total 2050 ml Output Total 400 ml Balance 1650 ml DUNCAN MAYER MD Oct 18, 2019 08:30
[2019-10-18] MEDS: ATORVASTATIN 20 MG TAB PO SCH (21:11)
[2019-10-18] MEDS: ACETAMINOPHEN TAB 650MG DOSE (2X325MG) PO PRN (21:11)
[2019-10-18] MEDS: MONTELUKAST 10 MG TAB PO SCH (21:11)
[2019-10-18 22:00] VITALS: BP 140/84
[2019-10-19 06:00] VITALS: BP 140/76
[2019-10-19] MEDS: ACETAMINOPHEN TAB 650MG DOSE (2X325MG) PO PRN (06:25)
[2019-10-19] MEDS: diazePAM 2 MG TAB PO PRN ×2 (06:25→15:16)
[2019-10-19] MEDS: TIOTROPIUM INHALER/CAPSULE (SPIRIVA) INH SCH (07:44)
[2019-10-19] MEDS: ENOXAPARIN 40MG/0.4ML SYRINGE (J1650 PER 10MG) SC SCH (09:01)
[2019-10-19 09:02] VITALS: BP 140/76
[2019-10-19] MEDS: PRIMIDONE 250 MG TAB PO SCH (09:02)
[2019-10-19] MEDS: LOSARTAN 50MG TABLET PO SCH (09:02)
[2019-10-19] MEDS: NICOTINE 21MG/24HR 1 EA TRANSDERMAL TD SCH (09:03)
[2019-10-19 09:56] LABS: HEMATOCRIT 34.3 % (42.0-52.0); HEMOGLOBIN 11.9 g/dl (13.5-17.5); MEAN CORPUSCULAR HEMOGLOBIN 31.9 pg (27.0-33.0); MEAN CORPUSCULAR HGB CONC 34.7 g/dl (32.0-36.5); PLATELET COUNT, AUTOMATED 240 10^3/uL (150-450); RED BLOOD COUNT 3.73 10^6/uL (4.30-6.10); WHITE BLOOD COUNT 4.8 10^3/uL (4.0-10.0)
[2019-10-19 10:13] LABS: BLOOD UREA NITROGEN 7 MG/DL (7-18); CALCIUM LEVEL 8.4 MG/DL (8.5-10.1); CARBON DIOXIDE LEVEL 24 MEQ/L (21-32); CHLORIDE LEVEL 103 MEQ/L (98-107); CREATININE FOR GFR 0.92 MG/DL (0.70-1.30); GLOMERULAR FILTRATION RATE > 60.0 (>56); GLUCOSE, FASTING 158 MG/DL (70-100); POTASSIUM SERUM 3.4 MEQ/L (3.5-5.1); SODIUM LEVEL 134 MEQ/L (136-145)
--- NOTE | 2019-10-19 10:42 | IPNPDOC ---
Text Note Date of Service The patient was seen on 10/19/19. NOTE Subjective: -No issues overnight -Anxiety much improved since restarting his PRN diazepam -No current pain complaints -consulted psych, pending recs Physical Examination General: Alert, No Acute Distress, Anxious appearing Eye: Conjunctiva & lids normal, EOMI, anicteric ENT: Atraumatic, dry mucous membranes, tongue Midline Neck: Supple Chest: Normal air movement, no Rales, Rhonchi, Wheezing, breathing comfortably on room air Heart: RRR, no mrg Abdomen: Normal bowel sounds, Soft, NTND Extremity: No LE Edema, no tenderness, no swelling Skin: Normal turgor and temperature Neuro: 06/15 X4 ext, Normal Tone, Sensation Intact, Cranial Nerves 3-12 NL, no dysarthria, no neurological deficits noted Psych: AOx3 Laboratory Data: Reviewed. Stable CBC and BMP wnl. Will check BMP for Na this AM given history of hyponatremia Imaging: CT head without acute pathology and CXR wnl Assessment/Plan 1. Encephalopathy vs. psychosis: Not sure if patient carries a psychiatric diagnosis beyond depression but per does not recall anything beyond the depression. Now admitted with psychomotor agitation, decreased sleep, delusions, suicidality and at times césar psychosis. -Pt on primidone at home for PMH of depression and pain, will continue for now. -Held his amitriptyline -Consulted psychiatrist, pending recommendations, on our discussion, he was ok with continuing 2mg diazepam PRN so it was restarted 10/18/19 -Sitter with suicidal precaution -Daily BMP, was recently hyponatremic -ammonia, Cr, LFTs and TSH wnl -nonfocal neurological examination with unremarkable CT head -Responded well to ativan in the ED 2. Hx of neuropathy/ permanent nerve damage. Hx of residual numbness and pain after surgical repair after bicep tendon surgery noted per medical record. -Holding all psychotropic meds, will give as pain medication per pain assessment, thus far no complaints 3. COPD. Not on inhalers at home. Stable 4. HTN. Cont home med Losartan and Propranolol. 5. History of hyponatremia: -monitor sodium daily, na 133 today, at his baseline DVT prophylaxis: SCD and TEDS VS,Fishbone, I+O VS, Fishbone, I+O Vital Signs Date Time Temp Pulse Resp B/P (MAP) Pulse Ox O2 Delivery O2 Flow Rate FiO2 10/19/19 09:02 140/76 10/19/19 06:00 99.5 77 18 97 Room Air I&O- Last 24 Hours up to 6 AM 10/19/19 06:00 Intake Total 2670 ml Output Total 700 ml Balance 1970 ml DUNCAN MAYER MD Oct 19, 2019 09:21
[2019-10-19] MEDS: NYSTATIN CREAM 15 GM TOP SCH (10:43)
[2019-10-19 14:00] VITALS: BP 152/91
[2019-10-19] MEDS ORDERED: DULoxetine 30 MG CAP (CYMBALTA) PO SCH (14:45)
--- NOTE | 2019-10-19 15:14 | DS.PDOC ---
Discharge Summary General Date of Admission Oct 17, 2019 at 11:11 Date of Discharge 10/19/2019 Discharge Summary PROCEDURES PERFORMED DURING STAY: None. ADMITTING DIAGNOSES: 1. 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 HISTORY OF PRESENT ILLNESS: 54 yo M with a PMH of depression, chronic pain, and HTN who was recently admitted to [facility] for suicidal ideation as well as mild hyponatremia who during that admission had nephrology consulted and hyponatremia resolved, and some of his psychotropic medications were held including lyrica, baclofen, hydrocodone and SOMA. Despite medical documentation of psychiatry being consulted to joan te him while on medicine and internal medicine reporting clearance for discharge from psychiatry, there was no noted documented recommendations from psychiatry in the form of a consultation note. He was discharged home and now returned, brought in per the urging of his , after he was noted to have been awake for prolonged time >24h, not taking any PO, confused, threatening to harm his and himself. I should note that the day before this presentation, he was seen by his PCP and she stopped his cymbalta and diazepam. HOSPITAL COURSE: In the ED, he was hemodynamically stable but agitated and received 1mg of IV ativan with good effect after which he was more agreeable to examination. I nitial work up was notable for grossly normal workup thus far with WBC 7.9, Hgb 13.2, hct 37, platelets 256, istat Na 134, TSH 0.657, AST 13, ALT 18, Tbili 0.3, Dbili 0.1, negative tox screen, ammonia 10, unremarkable noncontrast head CT without acute pathology and CXR without acute cardiopulmonary. He was admitted to medicine for acute encephalopathy related to acute withdrawal from his psychotropic medications vs. new psychiatric pathology. While inpatient, he remained calm, oriented and cooperative. I consulted psychiatry and much investigation by Dr. Aranda, he discovered that Mr. Raffy encarnacion follows in the pain clinic and with orthopedics that two months ago abruptly stopped his 5mg BID of diazepam that he took as a muscle relaxant and it coincided with the onset of his depression, frustration, and ultimately confusion and suicidal ideation and expressions. He apparently became increas ingly anxious to the extent he was considering suing his orthopedist for abruptly stopping his medications. Psychiatry recommended that he is safe and not suicidal and oriented and he likely is withdrawing from his longstanding diazepam and would recommend restarting diazepam at the reduced dose of 2mg PO BID PRN, as well as restart his nightly cymbalta 30mg but hold all the other psychotropic pain meds and defer them to the pain clinic, especially because he had no pain complaints while inpatient. He is now being discharged home where he will follow up with PCP, his therapist on (2d after discharge) and behavioral health. The was present during our discharge plan discussion and expressed understanding that we are holding all pain medications and only psychotropic medications being restarted are the 2mg BID PRN diazepam and the night 30mg of cymbalta. DISCHARGE MEDICATIONS: Please see below. ALLERGIES: Please see below. PHYSICAL EXAMINATION ON DISCHARGE: VITAL SIGNS: Please see below. General: Alert, No Acute Distress, Anxious appearing Eye: Conjunctiva & lids normal, EOMI, anicteric ENT: Atraumatic, dry mucous membranes, tongue Midline Neck: Supple Chest: Normal air movement, no Rales, Rhonchi, Wheezing, breathing comfortably on room air Heart: RRR, no mrg Abdomen: Normal bowel sounds, Soft, NTND Extremity: No LE Edema, no tenderness, no swelling Skin: Normal turgor and temperature Neuro: 5/5 X4 ext, Normal Tone, Sensation Intact, Cranial Nerves 3-12 NL, no dysarthria, no neurological deficits noted Psych: AOx3 LABORATORY DATA: Please see below. IMAGING: CT head: no acute pathology PROGNOSIS: Good ACTIVITY: As tolerated DIET: regular DISCHARGE PLAN: Home with close PCP and psychiatry follow up DISPOSITION: Home DISCHARGE INSTRUCTIONS: 1. Home with close PCP and psychiatry follow up ITEMS TO FOLLOWUP ON ON OUTPATIENT: 1. Acute altered mental status 2. Psychotropic and pain medication optimization DISCHARGE CONDITION: Stable TIME SPENT ON DISCHARGE: 43 minutes. Vital Signs/I&Os Vital Signs Date Time Temp Pulse Resp B/P (MAP) Pulse Ox O2 Delivery O2 Flow Rate FiO2 10/19/19 09:02 140/76 10/19/19 06:00 99.5 77 18 97 Room Air I&O- Last 24 Hours up to 6 AM 10/19/19 06:00 Intake Total 2670 ml Output Total 700 ml Balance 1970 ml Laboratory Data Labs 24H Laboratory Tests 2 10/19/19 09:36: Nucleated Red Blood Cells % (auto) 0.0, Anion Gap 7L, Glomerular Filtration Rate > 60.0, Calcium Level 8.4L CBC/BMP Laboratory Tests 10/19/19 09:36 Microbiology Microbiology 10/17/19 Blood Culture - Preliminary, Resulted No Growth after 48 hours. All Specime... 10/17/19 Blood Culture - Preliminary, Resulted No Growth after 48 hours. All Specime... Discharge Medications Scheduled Amitriptyline HCl (Amitriptyline HCl) 25 Mg Tablet, 75 MG PO QHS, (Reported) Atorvastatin Calcium (Atorvastatin Calcium) 40 Mg Tablet, 40 MG PO QHS, (Report ed) Gabapentin (Gabapentin) 300 Mg Cap, 300 MG PO TID, (Reported) Losartan Potassium (Losartan Potassium) 50 Mg Tablet, 50 MG PO DAILY, (Reported) Montelukast Sodium (Singulair) 10 Mg Tablet, 10 MG PO QHS, (Reported) Morphine Sulfate (Ms Contin) 15 Mg Tablet.er, 15 MG PO Q8H, (Reported) Nystatin (Nystatin) 15 Gm Cream..g., 1 APPLIC TOP BID, (Reported) APPLY TO GROIN Primidone (Primidone) 250 Mg Tablet, 62.5 MG PO TID, (Reported) Tiotropium Pawling (Spiriva) 18 Mcg Cap.w.dev, 1 CAP INH DAILY, (Reported) Scheduled PRN Diazepam (Diazepam) 2 Mg Tablet, 2 MG PO BID PRN for ANXIETY/AGITATION, (Reported) Allergies Coded Allergies: Penicillins (Verified Allergy, Unknown, 08/01/19) UNKNOWN DUNCAN MAYER MD Oct 19, 2019 15:14
[2019-10-19] MEDS ORDERED: CYMB1CAP5 PO (15:18)
--- NOTE | 2019-10-20 08:00 | MHCR ---
DATE OF CONSULTATION: 10/18/2019 CHIEF COMPLAINT: Has been anxious SUBJECTIVE: He is 54 years old, he is , he and his have been together more than 35 years, have two children, one who is local, the other lives in [place]. I have been asked to see this patient by the hospitalist, Dr. Amaro, who I spoke with earlier today, who gave me a history of the patient's narrative. Chart is reviewed, the patient is interviewed and I also spoke with the patient's separately afterwards with the patient's permission. He has several difficulties, mostly after he had an accident about three years or so ago. 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 Says he fell on tires, injured his arms, left arm in particular, had to have surgery on it, this was at [place] by Dr. Bar, has been seeing him for the last couple of years and among other things, the orthopedist had put him on diazepam at 5 mg twice a day as a muscle relaxant. He has been on it for a couple of years until recently. In addition to this, the patient has been seen by pain management, has been going there for the last at least one year and has been on various analgesics and medications to help address his pain including Lyrica, gabapentin, baclofen and more recently oxycodone, at some point on morphine as well. His functioning has slowly deteriorated, and most recently found it difficult to walk, his has been helping him, but he has become more dependent on her recently. Says , the orthopedist stopped the diazepam abruptly, this was sometime in July. She says no reason was given in particular and that he was obtain the diazepam from the pain center, says pain center does not prescribe diazepam and soon after this, within a week or so, the patient apparently had withdrawal symptoms, felt restless, some sweating, much more anxious. She says he was quite upset with the whole experience and decide to consult a slab lifting engineer and wanted to discuss this further with the slab lifting engineer. A bit later, changed his mind, became very apologetic, apologized to the slab lifting engineer, the patient's and to Dr. Bar as well. This is all per the . Has felt more anxious, has been more irritable over the last several weeks, and at some point, again narrative unclear. The Lyrica, baclofen, oxycodone were all stopped. He was hospitalized about a week or so ago. He was thought to be agitated, confused, some question that he had expressed suicidal ideations, which he denies, denies as well. Was found to be hyponatremic, was seen by nephrology, sodium was replaced, but apparently a bit too quickly and then the replacement slowed down. During this time, the medications for the pain including baclofen were all stopped. He was discharged from the hospital, no diazepam. He went to see his primary care, Ruma Zavala, soon afterwards, a few days ago and she apparently restarted him on diazepam at 2 mg twice a day, he says his is concerned that the patients impression is that he can take it up to 3 times a daily as needed for anxiety He became restless, sort of confused, agitated and was brought back to the hospital within the last couple of days. When given lorazepam, became quite improved, calmer, no confusions. Per the patient, he says that he has been doing well over the last months. Denies feeling depressed, says has possibly felt a bit tired and not quite himself and wanted to come off the various analgesics. He says he felt that they were a bit too powerful for him. Denies that he has been overly anxious, but acknowledge that without the diazepam he felt increasingly anxious, has felt better since he restarted it. Though this is quite unclear, as to how long he has been back on it. Denies that he was ever confused, that he has had difficulties with his memory. Denies that he has been suicidal Denies that his motivation has been diminished. This is in contrast with his wifes observation. The patient suggests moods have been fine over the last few months, in that he has enjoyed being with his family, says has a large family locally, they are supportive. Denies any panic attacks. During his recent hospitalization, about a week or ago, he does not think he was seen by a psychiatrist. Medical records are a bit confusing, and the notes from the pervious hospitalization indicate that psychiatry was consulted. He was seen, but there is note available. He was referred to outpatient psychiatry, went to the clinic at [facility] mid week, was seen by the picking table worker and referred to see a psychiatrist towards the end of this month. says that he was quite anxious and restless when was seen there. They apparently had an appointment to see a psychiatrist at the end of the month. The patient says that he will be seeing a therapist, which is [facility], this is [facility] on October. Says never been asked to see a psychiatrist in the past, nor therapist. Information from his has indicated that he has been feeling tired. She described it as luthie a couple of months ago when on various pain pills, the oxycodone, the morphine and diazepam. She did not think he was depressed, however. She says he is looking much better, doing much better when she saw him today. She also indicated that he would cry quite often a couple of months ago, as was struggling with mobility, worries about finances and the distinct change of life after the accident. PAST PSYCHIATRIC HISTORY: As indicated above, none formerly. Has recently been referred to psychiatry, has had an inpatient visit at clinic. SUBSTANCE HISTORY: Denies any. MEDICAL HISTORY: Says mostly related to difficulties after the accident. He has chronic low back pain, pain in the left arm, right arm. There is apparently a diagnosis of mild chronic obstructive pulmonary disease (COPD), has pulmonary nodules, hypertension, right and left rotator cuff torn, has had surgery, says is due for further surgery possibly later this month in [place], nerve damage and this is to nerves in the arms. Has had surgery for the rotator cuff in February 2017 and June 2018. SOCIAL HISTORY: He and his have been together for more than 35 years, they have two children, one of whom is local; the other is in [place]. He says they are a close family. He has siblings locally as well. 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 He has not been able to work since then. Has financial concerns and is going to work with compensation as well. MENTAL STATUS EXAMINATION: He is sitting up in bed. He is neat, he is cooperative. There is no agitation, no psychomotor retardation. He answers questions logically, coherently. Affective is restricted in range, mature, some reactivity. He denies any suicidal thoughts or intents. No homicidal ideas or intents. No evidence of any psychosis. His cognition is grossly intact in that there is no fluctuation of consciousness. He is able to maintain attention and shifted this adequately. He is alert and oriented to time, place and person. Could spell the word house forwards and backwards, could recall only 1 out of 3 objects after 5 minutes, but later on could recall 3 out of 3 after 5 minutes with prompting. Intellect average. Judgment good. Insight is fair at best. ASSESSMENT: 1. Other specified anxiety disorder 2. Other specified depressive disorder. 3. Rule out generalized anxiety disorder. 4. Recent delirium, most like multifactorial with hyponatremia. 5. Consider pain disorder (somatoform disorder) Has recently had medicines changed and the narrative, the story, has been complicated. He was on diazepam at 5 mg twice a day for a couple of years, was getting some muscle spasms described by the orthopedist. This was stopped by the orthopedist abruptly a couple of months ago. The patient has had possible withdrawal symptoms. Has also had several pain medications stopped. Has had subsequent hyponatremia, which has likely contributed to delirium with recent periods of confusion. He has also been depressed, anxious. Records suggest that he alluded to suicide, though he denies it and so does his . Has had struggles with chronic pain after the accident of a few years ago and this adds to the difficulties with moods. The narcotic analgesics may have contributed to depressed mood as well. Has recently been resumed on diazepam at a lower than previous dose by supervisor prep Ruma Zavala. He is currently not suicidal, nor homicidal, no evidence of any delirium at present either. He has little recollection of periods of confusion, the agitation. He has questionable insight into levels of anxiety and depression. RECOMMENDATIONS: Optimize current care, especially pain management, reassess the indications for the various analgesics that he uses. Minimize him if possible, by maintaining pain control. He is seen by the pain clinic. Consider a consult. Continue diazepam 2 mg twice a day, recently started by primary care. He was using the diazepam as a muscle relaxant at 5 mg twice a day for a couple of years, this was stopped abruptly by the orthopedist, reasons unclear, a couple of months ago. The diazepam may help with anxiety in the short term. Restart Cymbalta 30 mg daily to help address anxiety, possible depression, though the depressed mood may be exacerbated by the narcotic analgesics. Using the Cymbalta in chronic pain may also be potentially useful, had been on it in the past. Refer to psychiatry, he has already had an intake appointment earlier this week. Plans to see the therapist at primary care at [facility] at Dr. Moncada clinic. Thank you for the consult. If any questions, please call. The assessment took 75 minutes. YULIET
--- NOTE | 2019-10-26 11:41 | ECGEPIP ---
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
== END 2019-10-19 16:15 | disposition home or self-care (01) | DRG 776 ==
LOC: M ED 06:41 → M ED INP 11:11 → ENRESERV 12:42 → M MSPAV 13:21
PROVIDERS: ADMIT Internal Medicine; ATTEND Internal Medicine
DX: F13.231 Sedative, hypnotic or anxiolytic dependence with withdrawal delirium (principal); G62.9 Polyneuropathy, unspecified; I10 Essential (primary) hypertension; R41.0 Disorientation, unspecified; J44.9 Chronic obstructive pulmonary disease, unspecified; R91.8 Other nonspecific abnormal finding of lung field; E55.9 Vitamin D deficiency, unspecified; F32.9 Major depressive disorder, single episode, unspecified; D53.9 Nutritional anemia, unspecified; M51.36 Other intervertebral disc degeneration, lumbar region; Z79.899 Other long term (current) drug therapy; Z88.0 Allergy status to penicillin; F41.9 Anxiety disorder, unspecified

== ENCOUNTER → 2019-11-03 | Outpatient (CLI) | payer BC, MEDICARE ==
[~2019-11-03] MED LIST changes: +AMIT75TA PO; +AMLO-179 PO; +CARV12.5 PO; +COMBAER6 INH; +CYMB1CAP5 PO; +DIAZ2TAB PO; +DULO1CAP5 PO; +MORP-69 PO; +OMEP-221 PO; +OXYC10TA3 PO; +PRED20TA PO; +SPIR1CAP INH; +SUCR1TAB56 PO
== END ==
LOC: M PAIN 10:34
PROVIDERS: ATTEND Nurse Practitioner Family
DX: M51.16 Intervertebral disc disorders with radiculopathy, lumbar region (principal)

== ENCOUNTER → 2019-11-07 | Outpatient (CLI) | payer BC, MEDICARE | LOC: M LABSMTC 09:58 | PROVIDERS: ATTEND Anesthesiology | DX: Z20.828 Contact with and (suspected) exposure to other viral communicable diseases (principal) | CPT/HCPCS: C9803; U0003 ==

== ENCOUNTER → 2019-11-12 | Outpatient (CLI) | payer BC, MEDICARE ==
[~2019-11-12] MED LIST changes: +ACET-908 PO; +AMLO1TAB25 PO; +ASPI81CH33 PO; +ISOVUE-M 300 61% 15ML VIAL As Ordered ONE; +LIDOCAINE 1% SDV 30ML VIAL As Ordered ONE; +SPIR12.9 INH; +diazePAM 2 MG TAB As Ordered ONE; +diphenhydrAMINE 25MG CAP As Ordered ONE; +methylPREDNISolone SUSP 40MG/ML 1ML VIAL (DEPO MEDROL) As Ordered ONE; +oxyCODONE 5MG TAB As Ordered ONE
--- NOTE | 2019-11-12 17:07 | ECWPNPC ---
PATIENT NAME: TAMARA MONROY : 1965 GENDER: MALE VISIT DATE: 11/12/2019 DISCHARGE DATE: 11/12/19 1504 VISIT LOCKED DATE TIME: PHYSICIAN: DONTA ISAAC MD PHYSICIAN PAGER NO: ACTIVE RESOURCE: DONTA ISAAC MD REASON FOR APPOINTMENT 1. LESI L4-L5 HISTORY OF PRESENT ILLNESS GENERAL: -. FALL RISK SCREENING: SCREENING :NO FALLS REPORTED IN THE LAST YEAR PAIN SCREENING: PATIENT HAS A COMPLAINT OF ACUTE OR CHRONIC PAIN :YES LOCATION OF PAIN:LOW BACK, NECK INTENSITY OF PAIN (SCALE OF 1 TO 10):8 WHAT DOES YOUR PAIN FEEL LIKE:ACHING, BURNING DURATION:CONSTANT PAIN IS INCREASED BY:ACTIVITIES, PROLONGED STANDING NURSING NOTE: -. PAIN CENTER INTAKE QUESTIONS: DO YOU HAVE A HISTORY OF MRSA? :NO DO YOU TAKE A BLOOD THINNERS? :NO DO YOU HAVE ANY BLEEDING DISORDERS? :NO ANY NEW NUMBNESS OR WEAKNESS IN YOUR LEGS OR ARMS? :NO ANY PACEMAKER,DEFIBRILLATOR, OR DORSAL COLUMN STIMULATOR? :NO DO YOU HAVE ANY RASHES OR OPEN SORES? :NO ARE YOU ALLERGIC TO IV DYE? :NO ARE YOU DIABETIC? :NO ANY NEW PROBLEMS WITH YOUR MEDICATIONS? :NO HAVE YOU RECEIVED A VACCINE IN THE PAST 30 DAYS? :NO DO YOU PLAN TO RECEIVE A VACCINE IN THE NEXT 21 DAYS? :NO DO YOU TAKE ANY IMMUNOSUPPRESSIVE MEDICATIONS? :NO ANY HISTORY OF SEIZURES? :NO ANY HISTORY OF CARDIAC ISSUES OR EVENTS? :NO DO YOU HAVE SLEEP APNEA? :NO ANY RECENT HEAD INJURY? :NO DO YOU HAVE ANY NEW INFECTIONS? :NO IS THERE A CHANCE YOU COULD BE ? :NO ARE YOU BREAST FEEDING? :NO WHEN DID YOU LAST EAT? : 11/11/19 1800 WHEN DID YOU LAST DRINK? : 11/12/19 0900 WHAT DID YOU LAST DRINK? : [place] NAME OF PERSON DRIVING YOU HOME? : SHARON MONROY () [phone] DO YOU HAVE ANY OTHER QUESTIONS OR CONCERNS? : NO CURRENT MEDICATIONS TAKING MULTIVITAMINS OTC TABLET 1 TABLET ORALLY ONCE A DAY, NOTES: 11/11 599 TAKING CYMBALTA 30 MG CAPSULE DELAYED RELEASE PARTICLES 1 CAPSULE TWICE A DAY ORALLY 90 DAY(S) , NOTES: 11/11 599 TAKING VITAMIN D (ERGOCALCIFEROL) 38237 UNIT CAPSULE 1 CAPSULE ORALLY ONCE A WEEK (MONDAYS), NOTES: 11/09/19 WEEKLY TAKING BACLOFEN 20 MG TABLET 1 TABLET WITH FOOD OR MILK ORALLY Q6H QID, NOTES: NOT RECENTLY TAKING GABAPENTIN 300 MG CAPSULE 1 CAPSULE ORALLY THREE TIMES A DAY, NOTES: 11/11 599 TAKING SOMA 350 MG TABLET 1 TABLET ORALLY Q8H MDD3, NOTES: NOT RECENTLY TAKING ATORVASTATIN CALCIUM 40 MG TABLET 1 TABLET ORALLY ONCE A DAY, NOTES: 11/11 599 TAKING LOSARTAN POTASSIUM 50 MG TABLET 1 TABLET ORALLY ONCE A DAY, NOTES: 11/11 599 TAKING NYSTATIN 780272 UNIT/GM CREAM 1 APPLICATION 2G EXTERNALLY TWICE A DAY TO RASH ON GROIN, NOTES: NOT RECENTLY TAKING AMITRIPTYLINE HCL 25 MG TABLET 3 ORALLY ONCE A DAY, NOTES: 11/10 1900 TAKING PERCOCET 10-325 MG TABLET 1 TABLET NEEDED ORALLY EVERY 6 HRSMDD4, NOTES: NOT RECENTLY TAKING MORPHINE SULFATE ER 15 MG TABLET EXTENDED RELEASE 1 TO 2 DIRECTED ORALLY 1 IN AM,2 AT HS MDD3, NOTES: 11/11 599 TAKING SPIRIVA RESPIMAT 2.5 MCG/ACT AEROSOL SOLUTION 2 PUFFS INHALATION ONCE A DAY, NOTES: 11/10 1800 PRN TAKING DIAZEPAM 2 MG TABLET 1 TABLET NEEDED ORALLY BID, NOTES: 11/10 1800 NOT-TAKING LYRICA 300 MG CAPSULE 1 CAPSULE ORALLY BID MDD2 NOT-TAKING IBUPROFEN 800 MG TABLET 1 TABLET ORALLY NEEDED THREE TIMES A DAY NOT-TAKING VENTOLIN HFA 108 (90 BASE) MCG/ACT AEROSOL SOLUTION 1 PUFF NEEDED INHALATION EVERY 4 HRS NEEDED MEDICATION LIST REVIEWED AND RECONCILED WITH THE PATIENT PAST MEDICAL HISTORY CHRONIC LOW BACK PAIN - DDD RIGHT ARM PAIN - BICEPS TENDON RUPTURE - [facility] - S/P SURGICAL REPAIR 2013 WITH RESIDUAL NUMBNESS AND PAIN - MACROCYTIC ANEMIA PULMONARY NODULES - CHEST CT 09/25/13 - MILD COPD, OLD GRANULOMATOUS DISEASE WITH CALCIFIED 11MM NODULE IN LLL, CALCIFIED LEFT HILAR NODES. 3MM NONCALCIFIED PULMONARY NODULE JUST ADJACENT TO AND CONTINUOS WITH OTHER PULMONARY NODULE. RECOMMEND F/U CT CHEST 09/25. - F/U CT DONE 08/03/15 - CHRONIC CHANGES, STABLE 3 MM NODULE C/W 09/25/13 - NO FURTHER IMAGING NEEDED VITAMIN D DEFICIENCY RIGHT TORN ROTATOR CUFF/ TORN LEFT ROTATOR CUFF DEPRESSION HYPERTENSION BL HAND TREMOR - PER IMAGING AT [facility]-SPINE X-RAYS SHOWED SEVERE DEGENERATIVE CHANGES, MRI SHOWED MILD DEGENERATIVE CHANGES. F/U MRI PENDING PER NEUROSURGERY (COMP CASE) - NEUOLOGY DR. 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 2 SON(S) - HEALTHY. FATHER CIRRHOSIS OF LIVER\\MOTHER HAD BREAST CANCER, BONE CANCER. SOCIAL HISTORY GENERAL: TOBACCO USE ARE YOU A:CURRENT SMOKER ARE YOU INTERESTED IN QUITTING?NOT READY TO QUIT COUNSELED THE PATIENT ON SMOKING EFFECTS, EDUCATION [id number]/30/2020 HOW MANY CIGARETTES A DAY DO YOU SMOKE?6-10 HOW OFTEN DO YOU SMOKE CIGARETTES?EVERY DAY PATIENT COUNSELED ON THE DANGERS OF TOBACCO USE AND URGED TO QUIT:11/12/2019 LATEX QUESTIONNAIRE LATEX ALLERGY : HAVE YOU EVER DEVELOPED ANY TYPE OF REACTION AFTER HANDLING LATEX PRODUCTS SUCH RUBBER GLOVES, CONDOMS, DIAPHRAGMS, BALLOONS, SOCKS, OR UNDERWEAR?NO LATEX ALLERGY : HAVE YOU EVER DEVELOPED ANY TYPE OF REACTION DURING OR AFTER DENTAL APPOINTMENT, VAGINAL/RECTAL EXAMINATION, SURGICAL PROCEDURE, OR ANY OTHER EXPOSURE?NO DATE ASKED : 08/31/2019 LATEX RISK : HAVE YOU EVER HAD ANY DIFFICULTY BREATHING OR HIVES AFTER EATING OR HANDLING ANY FRUITS, OR VEGETABLES; SUCH KIWI, BANANAS, STONE FRUITS, OR CHESTNUTSNO LATEX RISK : DO YOU HAVE A PREVIOUS PERSONAL HISTORY OF MORE THAN NINE SURGERIES, SPINA BIFIDA, OR REPEATED CATHERIZATIONS? NO LATEX RISK : ARE YOU FREQUENTLY EXPOSED TO LATEX PRODUCTS IN YOUR OCCUPATION?NO ALCOHOL SCREENING DID YOU HAVE A DRINK CONTAINING ALCOHOL IN THE PAST YEAR?NO POINTS0 INTERPRETATIONNEGATIVE RECREATIONAL DRUG USE DRUG USE?NO PATIENT DENIES ABUSE OR MISSUSED OF ANY MEDICATION DENIES PATIENT DENIES USE OF ANY ILLEGAL SUBSTANCE INCLUDING MARIJUANA OR COCAINE DENIES CAFFEINE CAFFEINE USE?YES HOW OFTEN AND HOW MUCH? 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 DIET: REGULAR. EXERCISE: NO REGULAR EXERCISE. MARITAL STATUS: . OTHERS AT HOME: SPOUSE. PAIN CLINIC PFS, CLERGY, PUBLIC HEALTH REFERRALS PFS REFERRAL NEEDED?NO CLERGY REFERRAL NEEDED?NO PUBLIC HEALTH REFERRAL NEEDED?NO HAS THE PATIENT BEEN EDUCATED REGARDING HIS/HER PLAN OF CARE?YES HAS THE PATIENT BEEN EDUCATED REGARDING PAIN, THE RISK FOR PAIN, THE IMPORTANCE OF EFFECTIVE PAIN MANAGEMENT, AND THE PAIN ASSESSMENT PROCESS?YES ADVANCE DIRECTIVE ADVANCE DIRECTIVE DISCUSSED WITH PATIENT:YES HCP - SAPNA MONROY [phone] HOSPITALIZATION/MAJOR DIAGNOSTIC PROCEDURE SEES ABOVE- SURGERIES HYPONATREMIA 09/2019 VITAL SIGNS WT 158.6 LBS, HT 69 IN, BMI 23.42 INDEX, BP 148/96 MM HG, HR 73 /MIN, RR 18 /MIN, TEMP 98.3 F, OXYGEN SAT % 98%, SAFE IN ENV? (Y/N) YES, NA INITIALS AW 1329, REVIEWED BY: MT. EXAMINATION GENERAL EXAMINATION: THE PATIENT IS ALERT, ORIENTED TIMES THREE AND COOPERATIVE. HEART SHOWS REGULAR RHYTHM, NO MURMURS AND NO GALLOPS. LUNGS ARE CLEAR TO AUSCULTATION. ASSESSMENTS INTERVERTEBRAL DISC DISORDERS WITH RADICULOPATHY, LUMBAR REGION - M51.16 (PRIMARY) TREATMENT INTERVERTEBRAL DISC DISORDERS WITH RADICULOPATHY, LUMBAR REGION [facility] [place] SPINE INJECTION (PAIN)[id number] PROCEDURES PRE PROCEDURE DIAGNOSIS LUMBAR DISC DISORDER WITH RADICULOPATHY POST PROCEDURE DIAGNOSIS LUMBAR DISC DISORDER WITH RADICULOPATHY PROCEDURE LUMBAR EPIDURAL STEROID INJECTION UNDER FLUOROSCOPIC GUIDANCE SURGEON DR. DONTA ISAAC FINANCIAL SERVICE PROFESSIONAL NONE ANESTHESIA LOCAL PRE PROCEDURE NOTE THE PATIENT HAS A HISTORY OF CHRONIC LOW BACK PAIN. I EVALUATED THE PATIENT AND REVIEWED THE CHART. I WENT OVER THE RISKS, ALTERNATIVES, AND BENEFITS ASSOCIATED WITH THIS PROCEDURE. I DISCUSSED THAT THE USE OF STEROIDS MAY CONTRIBUTE TO IMMUNOSUPPRESSION OF THE PATIENT'S BODY AGAINST INFECTIONS SUCH COVID-19. THE PATIENT IS AWARE OF THE POTENTIAL COMPLICATIONS ASSOCIATED WITH THIS VIRUS, INCLUDING, BUT NOT LIMITED TO, . THE PATIENT WOULD LIKE TO PROCEED AND GIVE CONSENT TO PERFORMED THE PROCEDURE. THE PATIENT DENIES UNEXPLAINABLE WEIGHT LOSS, FEVER, CHILLS, OR NEW CHANGES IN URINARY OR BOWEL CONTROL. THE PATIENT IS COVID-19 NEGATIVE DESCRIPTION OF PROCEDURE THE PATIENT WAS BROUGHT TO THE PROCEDURE ROOM AND PLACED IN THE PRONE POSITION. THE LUMBOSACRAL AREA WAS CLEANED WITH BETADINE SOLUTION AND DRAPED ASEPTICALLY. THE PROCEDURE WAS DONE UNDER STERILE CONDITIONS. A TIMEOUT WAS PERFORMED WHERE LATERALITY AND THE SITE OF THE PROCEDURE WERE CHECKED AND CONFIRMED WITH EVERYONE IN THE ROOM. UNDER FLUOROSCOPIC GUIDANCE, THE TARGET POINT WAS SELECTED AT THE INTERLAMINAR LEVEL OF L4-L5. I CONFIRMED AGAIN WITH EVERYONE IN THE ROOM THE LATERALITY OF THE TARGET. LIDOCAINE WAS USED TO NUMB THE SKIN AND THE SUBCUTANEOUS TISSUE BELOW IT. EPIDURAL TUOHY NEEDLE, 17-GAUGE, WAS ADVANCED UNDER FLUOROSCOPIC GUIDANCE AND FOLLOWING PATIENT FEEDBACK UNTIL THE EPIDURAL SPACE WAS REACHED 6 CM DEEP INTO THE SKIN BY THE LOSS OF RESISTANCE TECHNIQUE. ISOVUE-M DYE 30%, 0.25 ML, WAS INJECTED SHOWING ADEQUATE SPREAD OF THE DYE. THEN, A SOLUTION OF 3 ML OF NORMAL SALINE WITH DEPO-MEDROL 80 MG WAS INJECTED SLOWLY FOLLOWING PATIENT FEEDBACK. THE MEDICATIONS WERE VERIFIED WITH THE NURSE. THERE WAS NO EVIDENCE OF BLOOD, PARESTHESIA OR CEREBROSPINAL FLUID DURING THE PROCEDURE. THE PATIENT WAS SENT TO THE RECOVERY ROOM. THE PATIENT WAS MOVING THE EXTREMITIES AND DOING WELL. THERE WERE NO COMPLICATIONS DURING THE PROCEDURE. ESTIMATED BLOOD LOSS WAS LESS THAN 5 ML. FLUOROSCOPY TIME WAS 20 SECONDS POST PROCEDURE NOTE THE PATIENT WILL BE SEEN IN A FOLLOW UP IN THE NEXT FEW WEEKS. I AM LOOKING FOR LONG LASTING RELIEF FOR THE PATIENT WITH THIS INTERVENTION. INSTRUCTIONS WERE GIVEN, QUESTIONS WERE ANSWERED, AND THE PATIENT EXPRESSED UNDERSTANDING AND AGREES WITH THE PLAN. I, CONCETTA ABBOTT, DOCUMENTED THE ABOVE INFORMATION ACTING A SCRIBE FOR DR. ISAAC. I HAVE REVIEWED THE ABOVE DOCUMENT, WRITTEN BY CONCETTA ABBOTT, PROJECT MANAGER/DESIGN MANAGER, AND I VERIFY THAT IT IS ACCURATE PROCEDURE CODES 82269 LUMBAR/SACRAL W/ IMAGING DISPOSITION & COMMUNICATION FOLLOW UP FOLLOW UP WITH RIB STIFFENER AND HEEL DIPPER (REASON: POST LUMBAR EPIDURAL L4-L5) ELECTRONICALLY SIGNED BY DONTA ISAAC MD, MD ON 11/12/2019 AT 04:47 PM EDT DISCLAIMER : THIS IS A VISIT SUMMARY EXTRACTED FROM THE [employer] CHART. IT IS NOT A COPY OF THE [employer] PROGRESS NOTE. YULIET
--- NOTE | 2019-11-18 16:31 | REP ---
LIMITED LUMBAR SPINE: 3-VIEWS HISTORY: Lumbar epidural steroid injection for pain. FLUROSCOPY TIME: 20 seconds reported. FINDINGS: A sequence of three [id number] fluoroscopically obtained spot radiographs of the lumbar spine document needle position and contrast injection associated with injection procedure. YULIET
== END ==
LOC: M PAIN 13:30
PROVIDERS: ATTEND Anesthesiology
DX: M51.16 Intervertebral disc disorders with radiculopathy, lumbar region (principal); E55.9 Vitamin D deficiency, unspecified; I10 Essential (primary) hypertension; J44.9 Chronic obstructive pulmonary disease, unspecified; F17.210 Nicotine dependence, cigarettes, uncomplicated; Z86.59 Personal history of other mental and behavioral disorders; Z88.0 Allergy status to penicillin; Z88.8 Allergy status to other drugs, medicaments and biological substances; Z79.891 Long term (current) use of opiate analgesic; Z79.899 Other long term (current) drug therapy
CPT/HCPCS: 62323; J1030; Q9967

== ENCOUNTER → 2019-11-24 | Outpatient (CLI) | payer BC, MEDICARE ==
[~2019-11-24] MED LIST changes: -ACET-908 PO; -AMLO-179 PO; -AMLO1TAB25 PO; -ASPI81CH33 PO; -COMBAER6 INH; -ISOVUE-M 300 61% 15ML VIAL As Ordered ONE; -LIDOCAINE 1% SDV 30ML VIAL As Ordered ONE; -OMEP-221 PO; -OXYC10TA3 PO; -PRED20TA PO; -SPIR12.9 INH; -SUCR1TAB56 PO; -diazePAM 2 MG TAB As Ordered ONE; -diphenhydrAMINE 25MG CAP As Ordered ONE; -methylPREDNISolone SUSP 40MG/ML 1ML VIAL (DEPO MEDROL) As Ordered ONE; -oxyCODONE 5MG TAB As Ordered ONE
--- NOTE | 2019-11-27 01:32 | ECWPNPC ---
PATIENT NAME: TAMARA MONROY : 1965 GENDER: MALE VISIT DATE: 11/24/2019 DISCHARGE DATE: 11/24/19 1306 VISIT LOCKED DATE TIME: PHYSICIAN: YAS ROBERTSON PHYSICIAN PAGER NO: ACTIVE RESOURCE: YAS ROBERTSON REASON FOR APPOINTMENT 1. POST LUMBAR EPIDURAL L4-L5 HISTORY OF PRESENT ILLNESS GENERAL: HERE FOR POST PROCEDURE FOLLOW-UP. HAD LUMBAR EPIDURAL STEROID INJECTION L4-5 ON 11/12/2019. REPORTING SIGNIFICANT REDUCTION IN PAIN. CONTINUES TO HAVE PERSISTENT LOW BACK PAIN AT A LEVEL IV/X VAS. REPORTING SIDE EFFECTS WITH MORPHINE EXTENDED RELEASE TO INCLUDE HEADACHE. COMPLAINING OF NUMBNESS AND TINGLING IN HIS LEGS. DISCUSSED MEDICATION.-. FALL RISK SCREENING: SCREENING :NO FALLS REPORTED IN THE LAST YEAR PAIN SCREENING: PATIENT HAS A COMPLAINT OF ACUTE OR CHRONIC PAIN :YES LOCATION OF PAIN:LOW BACK INTENSITY OF PAIN (SCALE OF 1 TO 10):4 WHAT DOES YOUR PAIN FEEL LIKE:SHARP DURATION:CONTINOUS, CONSTANT PAIN IS INCREASED BY:ACTIVITIES PAIN IS DECREASED BY:USE OF PAIN MEDICATIONS TREATMENT/MEDICATIONS USED TO MANAGE PAIN:OTC PAIN RELIEVERS, NSAIDS LEVEL OF RELIEF FROM PAIN TREATMENTS IN THE PAST:75% PAIN HAS INTERFERED WITH THE FOLLOWING:WALKING ABILITY NURSING NOTE: -. PAIN CENTER INTAKE QUESTIONS: DO YOU HAVE A HISTORY OF MRSA? :NO DO YOU TAKE A BLOOD THINNERS? :NO DO YOU HAVE ANY BLEEDING DISORDERS? :NO ANY NEW NUMBNESS OR WEAKNESS IN YOUR LEGS OR ARMS? :NO ANY PACEMAKER,DEFIBRILLATOR, OR DORSAL COLUMN STIMULATOR? :NO DO YOU HAVE ANY RASHES OR OPEN SORES? :NO ARE YOU ALLERGIC TO IV DYE? :NO ARE YOU DIABETIC? :NO ANY NEW PROBLEMS WITH YOUR MEDICATIONS? :NO HAVE YOU RECEIVED A VACCINE IN THE PAST 30 DAYS? :NO DO YOU PLAN TO RECEIVE A VACCINE IN THE NEXT 21 DAYS? :YES IF SO WHAT VACCINE AND WHEN? FLU VACCINE 12/04/19 DO YOU NEED ANY PRESCRIPTION? :NO DO YOU TAKE ANY IMMUNOSUPPRESSIVE MEDICATIONS? :NO IS THERE A CHANCE YOU COULD BE ? :NO ARE YOU BREAST FEEDING? :NO CURRENT MEDICATIONS TAKING MULTIVITAMINS OTC TABLET 1 TABLET ORALLY ONCE A DAY TAKING CYMBALTA 30 MG CAPSULE DELAYED RELEASE PARTICLES 1 CAPSULE TWICE A DAY ORALLY 90 DAY(S) TAKING VITAMIN D (ERGOCALCIFEROL) [id number] UNIT CAPSULE 1 CAPSULE ORALLY ONCE A WEEK (MONDAYS) TAKING GABAPENTIN 300 MG CAPSULE 1 CAPSULE ORALLY THREE TIMES A DAY TAKING LOSARTAN POTASSIUM 50 MG TABLET 1 TABLET ORALLY ONCE A DAY TAKING AMITRIPTYLINE HCL 25 MG TABLET 3 ORALLY ONCE A DAY TAKING MORPHINE SULFATE ER 15 MG TABLET EXTENDED RELEASE 1 TO 2 DIRECTED ORALLY 1 IN AM,2 AT HS MDD3 TAKING SPIRIVA RESPIMAT 2.5 MCG/ACT AEROSOL SOLUTION 2 PUFFS INHALATION ONCE A DAY TAKING DIAZEPAM 2 MG TABLET 1 TABLET NEEDED ORALLY BID TAKING ATORVASTATIN CALCIUM 40 MG TABLET 1 TABLET ORALLY ONCE A DAY NOT-TAKING BACLOFEN 20 MG TABLET 1 TABLET WITH FOOD OR MILK ORALLY Q6H QID NOT-TAKING SOMA 350 MG TABLET 1 TABLET ORALLY Q8H MDD3 NOT-TAKING NYSTATIN [id number] UNIT/GM CREAM 1 APPLICATION 2G EXTERNALLY TWICE A DAY TO RASH ON GROIN NOT-TAKING PERCOCET 10-325 MG TABLET 1 TABLET NEEDED ORALLY EVERY 6 HRSMDD4 NOT-TAKING LYRICA 300 MG CAPSULE 1 CAPSULE ORALLY BID MDD2 NOT-TAKING IBUPROFEN 800 MG TABLET 1 TABLET ORALLY NEEDED THREE TIMES A DAY NOT-TAKING VENTOLIN HFA 108 (90 BASE) MCG/ACT AEROSOL SOLUTION 1 PUFF NEEDED INHALATION EVERY 4 HRS NEEDED MEDICATION LIST REVIEWED AND RECONCILED WITH THE PATIENT PAST MEDICAL HISTORY CHRONIC LOW BACK PAIN - DDD RIGHT ARM PAIN - BICEPS TENDON RUPTURE - [facility] - S/P SURGICAL REPAIR 2013 WITH RESIDUAL NUMBNESS AND PAIN - MACROCYTIC ANEMIA PULMONARY NODULES - CHEST CT 09/25/13 - MILD COPD, OLD GRANULOMATOUS DISEASE WITH CALCIFIED 11MM NODULE IN LLL, CALCIFIED LEFT HILAR NODES. 3MM NONCALCIFIED PULMONARY NODULE JUST ADJACENT TO AND CONTINUOS WITH OTHER PULMONARY NODULE. RECOMMEND F/U CT CHEST 09/25. - F/U CT DONE 08/03/15 - CHRONIC CHANGES, STABLE 3 MM NODULE C/W 09/25/13 - NO FURTHER IMAGING NEEDED VITAMIN D DEFICIENCY RIGHT TORN ROTATOR CUFF/ TORN LEFT ROTATOR CUFF DEPRESSION HYPERTENSION BL HAND TREMOR - PER IMAGING AT [facility]-SPINE X-RAYS SHOWED SEVERE DEGENERATIVE CHANGES, MRI SHOWED MILD DEGENERATIVE CHANGES. F/U MRI PENDING PER NEUROSURGERY (COMP CASE) - NEUOLOGY DR. 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 2 SON(S) - HEALTHY. FATHER CIRRHOSIS OF LIVER\\MOTHER HAD BREAST CANCER, BONE CANCER. SOCIAL HISTORY GENERAL: TOBACCO USE ARE YOU A:CURRENT SMOKER ARE YOU INTERESTED IN QUITTING?NOT READY TO QUIT COUNSELED THE PATIENT ON SMOKING EFFECTS, EDUCATION [id number] HOW MANY CIGARETTES A DAY DO YOU SMOKE?6-10 HOW OFTEN DO YOU SMOKE CIGARETTES?EVERY DAY PATIENT COUNSELED ON THE DANGERS OF TOBACCO USE AND URGED TO QUIT:11/12/2019 LATEX QUESTIONNAIRE LATEX ALLERGY : HAVE YOU EVER DEVELOPED ANY TYPE OF REACTION AFTER HANDLING LATEX PRODUCTS SUCH RUBBER GLOVES, CONDOMS, DIAPHRAGMS, BALLOONS, SOCKS, OR UNDERWEAR?NO LATEX ALLERGY : HAVE YOU EVER DEVELOPED ANY TYPE OF REACTION DURING OR AFTER DENTAL APPOINTMENT, VAGINAL/RECTAL EXAMINATION, SURGICAL PROCEDURE, OR ANY OTHER EXPOSURE?NO LATEX RISK : HAVE YOU EVER HAD ANY DIFFICULTY BREATHING OR HIVES AFTER EATING OR HANDLING ANY FRUITS, OR VEGETABLES; SUCH KIWI, BANANAS, STONE FRUITS, OR CHESTNUTSNO LATEX RISK : DO YOU HAVE A PREVIOUS PERSONAL HISTORY OF MORE THAN NINE SURGERIES, SPINA BIFIDA, OR REPEATED CATHERIZATIONS? NO LATEX RISK : ARE YOU FREQUENTLY EXPOSED TO LATEX PRODUCTS IN YOUR OCCUPATION?NO DATE ASKED : 11/24/2019 ALCOHOL SCREENING DID YOU HAVE A DRINK CONTAINING ALCOHOL IN THE PAST YEAR?NO POINTS0 INTERPRETATIONNEGATIVE RECREATIONAL DRUG USE DRUG USE?NO PATIENT DENIES ABUSE OR MISSUSED OF ANY MEDICATION DENIES PATIENT DENIES USE OF ANY ILLEGAL SUBSTANCE INCLUDING MARIJUANA OR COCAINE DENIES CAFFEINE CAFFEINE USE?YES HOW OFTEN AND HOW MUCH? 6 CUPS COFFEE/DAY SEXUAL HX HAD SEX IN THE LAST 12 MONTHS (VAGINAL, ORAL, OR ANAL)?NO HAVE YOU EVER HAD AN STD?NO WORSHIP [id number] MUSLIM LANGUAGE LANGUAGES SPOKEN:LEBANESE EDUCATION LEVEL OF EDUCATION:COLLEGE LEARNING BARRIERS / SPECIAL NEEDS CHANGE FROM LAST VISIT?NO BARRIERS TO LEARNING?NO HEARING IMPAIRED?NO VISION IMPAIRED?YES COGNITIVELY IMPAIRED?NO :CORRECTIVE LENSES READINESS TO LEARN?YES LEARNING PREFERENCES?NO LEARNING CAPABILITIES PRESENT?YES EMOTIONAL BARRIERS?NO SPECIAL DEVICES?NO LEGAL AID NEEDED?NO DOMESTIC VIOLENCE DO YOU FEEL SAFE IN YOUR ENVIRONMENT?YES OCCUPATION: [employer]. DIET: REGULAR. EXERCISE: NO REGULAR EXERCISE. MARITAL STATUS: . OTHERS AT HOME: SPOUSE. PAIN CLINIC PFS, CLERGY, PUBLIC HEALTH REFERRALS PFS REFERRAL NEEDED?NO CLERGY REFERRAL NEEDED?NO PUBLIC HEALTH REFERRAL NEEDED?NO HAS THE PATIENT BEEN EDUCATED REGARDING HIS/HER PLAN OF CARE?YES HAS THE PATIENT BEEN EDUCATED REGARDING PAIN, THE RISK FOR PAIN, THE IMPORTANCE OF EFFECTIVE PAIN MANAGEMENT, AND THE PAIN ASSESSMENT PROCESS?YES ADVANCE DIRECTIVE ADVANCE DIRECTIVE DISCUSSED WITH PATIENT:YES HCP - SAPNA MONROY [phone] HOSPITALIZATION/MAJOR DIAGNOSTIC PROCEDURE SEES ABOVE- SURGERIES HYPONATREMIA 09/2019 REVIEW OF SYSTEMS CONSTITUTIONAL: ANY RECENT FEVER NO . CHILLS NO . WEIGHT CHANGE OF UNKNOWN REASONS NO . GASTROENTEROLOGY: NEW UNEXPLAINABLE CHANGES IN BOWEL CONTROL NO . CONSTIPATION NO . GENITOURINARY: ANY NEW CHANGE IN BLADDER CONTROL? NO . NEUROLOGY: NEW ONSET DIZZINESS OR NEUROLOGICAL CHANGES NOT MENTIONED NO . NEW NUMBNESS OR PAIN PATTERNS NOT MENTIONED AND PERTINENT TO TODAY'S VISIT NO . CARDIOLOGY: NEW CHEST PRESSURE NO . NEW CHEST PAIN NO . RESPIRATORY: UNEXPLAINABLE COUGH NO . NEW SHORTNESS OF BREATH NO . VITAL SIGNS WT 160 LBS, HT 69 IN, BMI 23.63 INDEX, BP 136/93 MM HG, HR 69 /MIN, RR 16 /MIN, TEMP 98.6 F, OXYGEN SAT % 98, REVIEWED BY: EM. EXAMINATION GENERAL EXAMINATION: GENERALAWAKE,ALERT ,PLEASANT . PSYCHAFFECT NORMAL . LUNGS:LUNG SHI ARE CLEAR TO AUSCULTATION BILATERALLY. GOOD MOVEMENT OF AIR . HEART:S1, S2 IN A REGULAR RATE AND RHYTHM. NO SIGNIFICANT MURMURS, RUBS OR GALLOPS NOTED . ASSESSMENTS INTERVERTEBRAL DISC DISORDERS WITH RADICULOPATHY, LUMBOSACRAL REGION - M51.17 (PRIMARY) CHRONIC PRESCRIPTION OPIATE USE - Z79.899 TREATMENT INTERVERTEBRAL DISC DISORDERS WITH RADICULOPATHY, LUMBOSACRAL REGION INCREASE CYMBALTA CAPSULE DELAYED RELEASE PARTICLES, 60 MG, 1 CAPSULE, ORALLY, ONCE A DAY, 30 DAYS, 30 CAPSULE, REFILLS 2 STOP MORPHINE SULFATE ER TABLET EXTENDED RELEASE, 15 MG, 1 TO 2 DIRECTED, ORALLY, 1 IN AM,2 AT HS MDD3 START PERCOCET TABLET, 10-325 MG, 1 TABLET NEEDED, ORALLY, EVERY 6 HRS MDD4 #90 TAB SHOULD LAST 30 DAYS, 30 DAYS, 90, REFILLS 0 NOTES: GRADUALLY DISCONTINUE MS CONTIN 15 MG. START PERCOCET 10/325 ONE EVERY 6 HOURS NEEDED WITH MDD OF 4 #90 TABLETS TO LAST 30 DAYS. INCREASE CYMBALTA TO 60 MG CAPSULE 1 DAILY. , ISTOP REGISTRY REVIEWED AND DEMONSTRATES COMPLLIANCE. BRINGS IN MEDICATIONS WHICH IS APPROPRIATE FOR WHAT WAS DISPENSED. RECENT URINE TOXICOLOGY REVIEWED. NO UNAUTHORIZED MEDICATIONS. NO ILLICIT SUBSTANCES AND PRESCRIBED MEDICATIONS WERE PRESENT. , RISKS OF NARCOTIC/OPIOD MEDICATIONS INCLUDES BUT IS NOT LIMITED TO RISK OF DEPENDANCE/DEVELOPMENT OF ADDICTION, MOOD DISTURBANCE AND DEPRESSION, OSTEOPOROSIS, HORMONAL AND LABIDAL CHANGES, RESPIRATORY DEPRESSION AND . PATIENT IS ADVISED NOT TO DRIVE OR DRINK ALCOHOL WHILE ON THESE MEDICATIONS. PREVENTIVE MEDICINE (MALE) PREVENTIVE WELLNESS PLAN: TODAY'S VISIT PATIENT PRESENTS TODAY FOR: STOP MORPHINE, STARTED PERCOCET AND WILL BE SEEN BACK IN 3MO FOR MED MGMNT AND LBP PROCEDURE CODES [id number] ESTABILISHED PATIENT [facility] CHARGE DISPOSITION & COMMUNICATION FOLLOW UP 3 MONTHS (REASON: LOW BACK PAIN/MED MANAGEMENT) ELECTRONICALLY SIGNED BY PATO DE LA CRUZ ON 11/26/2019 AT 03:33 PM EDT DISCLAIMER : THIS IS A VISIT SUMMARY EXTRACTED FROM THE [employer] CHART. IT IS NOT A COPY OF THE [employer] PROGRESS NOTE. MTDD
== END ==
LOC: M PAIN 11:30
PROVIDERS: ATTEND Nurse Practitioner Family
DX: M51.17 Intervertebral disc disorders with radiculopathy, lumbosacral region (principal); E55.9 Vitamin D deficiency, unspecified; J44.9 Chronic obstructive pulmonary disease, unspecified; F17.210 Nicotine dependence, cigarettes, uncomplicated; Z86.59 Personal history of other mental and behavioral disorders; Z88.0 Allergy status to penicillin; Z88.8 Allergy status to other drugs, medicaments and biological substances; Z79.891 Long term (current) use of opiate analgesic; Z79.899 Other long term (current) drug therapy

== ENCOUNTER → 2019-11-30 | Outpatient (CLI) | payer OTHER, MEDICARE, BC ==
--- NOTE | 2019-12-01 08:48 | ECWPNPC ---
PATIENT NAME: TAMARA MONROY : 1965 GENDER: MALE VISIT DATE: 11/30/2019 DISCHARGE DATE: 11/30/19 1146 VISIT LOCKED DATE TIME: PHYSICIAN: YAS ROBERTSON PHYSICIAN PAGER NO: ACTIVE RESOURCE: YAS ROBERTSON REASON FOR APPOINTMENT 1. W/C WANTS TPI HISTORY OF PRESENT ILLNESS DEPRESSION SCREENING: PHQ-2 (2015 EDITION) LITTLE INTEREST OR PLEASURE IN DOING THINGS?NOT AT ALL FEELING DOWN, DEPRESSED, OR HOPELESS?NOT AT ALL TOTAL SCORE0 GENERAL: -. FALL RISK SCREENING: SCREENING :NO FALLS REPORTED IN THE LAST YEAR NONE PAIN SCREENING: PATIENT HAS A COMPLAINT OF ACUTE OR CHRONIC PAIN :YES LOCATION OF PAIN:BOTH SHOULDERS PAIN GOES INTO ARMS INTENSITY OF PAIN (SCALE OF 1 TO 10):5 WHAT DOES YOUR PAIN FEEL LIKE:TENDER DURATION:CONTINOUS PAIN IS INCREASED BY:ACTIVITIES PAIN IS DECREASED BY:USE OF PAIN MEDICATIONS MEDS ONLY HELPS IN THE AM BY AFTERNNON IT MARION NOT NURSING NOTE: -. PAIN CENTER INTAKE QUESTIONS: DO YOU HAVE A HISTORY OF MRSA? :NO DO YOU TAKE A BLOOD THINNERS? :NO DO YOU HAVE ANY BLEEDING DISORDERS? :NO ANY NEW NUMBNESS OR WEAKNESS IN YOUR LEGS OR ARMS? :NO ANY PACEMAKER,DEFIBRILLATOR, OR DORSAL COLUMN STIMULATOR? :NO DO YOU HAVE ANY RASHES OR OPEN SORES? :NO ARE YOU ALLERGIC TO IV DYE? :NO ARE YOU DIABETIC? :NO ANY NEW PROBLEMS WITH YOUR MEDICATIONS? :NO HAVE YOU RECEIVED A VACCINE IN THE PAST 30 DAYS? :NO DO YOU PLAN TO RECEIVE A VACCINE IN THE NEXT 21 DAYS? :YES FLU VAC THIS SATURDAY AND IF A PROCEDURE NEEDS TO BE DONE HE WILL HOLD OFF ON THE SHOT DO YOU NEED ANY PRESCRIPTION? :NO DO YOU TAKE ANY IMMUNOSUPPRESSIVE MEDICATIONS? :NO IS THERE A CHANCE YOU COULD BE ? :NO ARE YOU BREAST FEEDING? :NO FALL RISK SCREENING: HERE FOR FOLLOW-UP OF BILATERAL SHOULDER PAIN. OVER THE PAST WEEK, BILATERAL TRAPEZIUS AND SHOULDER PAIN HAS RETURNED. RATING PAIN VAS 8/10.ALSO HAVING EPISODES OF EXCRUCIATING LEFT ARM SHOOTING PAIN WITH ROJM OF LEFT ARM COMPROMISED.DESPITE ESCALATING DOSE OF GABAPENTIN FOR NEUROPATHIC PAIN HIS PAIN PERSISTS. THIS IS A WORK RELATED INJURY WITH DOI 9-15-17.HE WAS LIFTING TIRES AND HEARD A SNAP AND HAD EXCRUIATING PAIN BILATERAL SHOULDERS R>L.HE IS STATUS POST BILAT SHOULDER SURGERY(MAR 11 2017-LEFT_ _-MAY 2018 RIGHT).HAS BEEN HAVING CONSTANT TREMORS IN HANDS AT REST AND WITH USE SINCE INJURY.DENIES FEVER OR ILLNESS.DENIES WEIGHT LOSS. SCREENING : NO FALLS IN THE PAST YEAR. CURRENT MEDICATIONS TAKING MULTIVITAMINS OTC TABLET 1 TABLET ORALLY ONCE A DAY TAKING VITAMIN D (ERGOCALCIFEROL) 08898 UNIT CAPSULE 1 CAPSULE ORALLY ONCE A WEEK (MONDAYS) TAKING GABAPENTIN 300 MG CAPSULE 1 CAPSULE ORALLY THREE TIMES A DAY TAKING LOSARTAN POTASSIUM 50 MG TABLET 1 TABLET ORALLY ONCE A DAY TAKING AMITRIPTYLINE HCL 25 MG TABLET 3 ORALLY ONCE A DAY TAKING SPIRIVA RESPIMAT 2.5 MCG/ACT AEROSOL SOLUTION 2 PUFFS INHALATION ONCE A DAY TAKING DIAZEPAM 2 MG TABLET 1 TABLET NEEDED ORALLY BID TAKING ATORVASTATIN CALCIUM 40 MG TABLET 1 TABLET ORALLY ONCE A DAY TAKING CYMBALTA 60 MG CAPSULE DELAYED RELEASE PARTICLES 1 CAPSULE ORALLY ONCE A DAY TAKING PERCOCET 10-325 MG TABLET 1 TABLET NEEDED ORALLY EVERY 6 HRS MDD4 #90 TAB SHOULD LAST 30 DAYS NOT-TAKING BACLOFEN 20 MG TABLET 1 TABLET WITH FOOD OR MILK ORALLY Q6H QID NOT-TAKING SOMA 350 MG TABLET 1 TABLET ORALLY Q8H MDD3 NOT-TAKING NYSTATIN 792904 UNIT/GM CREAM 1 APPLICATION 2G EXTERNALLY TWICE A DAY TO RASH ON GROIN NOT-TAKING PERCOCET 10-325 MG TABLET 1 TABLET NEEDED ORALLY EVERY 6 HRSMDD4 NOT-TAKING LYRICA 300 MG CAPSULE 1 CAPSULE ORALLY BID MDD2 NOT-TAKING IBUPROFEN 800 MG TABLET 1 TABLET ORALLY NEEDED THREE TIMES A DAY NOT-TAKING VENTOLIN HFA 108 (90 BASE) MCG/ACT AEROSOL SOLUTION 1 PUFF NEEDED INHALATION EVERY 4 HRS NEEDED MEDICATION LIST REVIEWED AND RECONCILED WITH THE PATIENT PAST MEDICAL HISTORY CHRONIC LOW BACK PAIN - DDD RIGHT ARM PAIN - BICEPS TENDON RUPTURE - [facility] - S/P SURGICAL REPAIR 2013 WITH RESIDUAL NUMBNESS AND PAIN - MACROCYTIC ANEMIA PULMONARY NODULES - CHEST CT 09/25/13 - MILD COPD, OLD GRANULOMATOUS DISEASE WITH CALCIFIED 11MM NODULE IN LLL, CALCIFIED LEFT HILAR NODES. 3MM NONCALCIFIED PULMONARY NODULE JUST ADJACENT TO AND CONTINUOS WITH OTHER PULMONARY NODULE. RECOMMEND F/U CT CHEST 09/25. - F/U CT DONE 08/03/15 - CHRONIC CHANGES, STABLE 3 MM NODULE C/W 09/25/13 - NO FURTHER IMAGING NEEDED VITAMIN D DEFICIENCY RIGHT TORN ROTATOR CUFF/ TORN LEFT ROTATOR CUFF DEPRESSION HYPERTENSION BL HAND TREMOR - PER IMAGING AT [facility] - C-SPINE X-RAYS SHOWED SEVERE DEGENERATIVE CHANGES, MRI SHOWED MILD DEGENERATIVE CHANGES. F/U MRI PENDING PER NEUROSURGERY (COMP CASE) - NEUOLOGY DR. 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 2 SON(S) - HEALTHY. FATHER CIRRHOSIS OF LIVER\\MOTHER HAD BREAST CANCER, BONE CANCER. SOCIAL HISTORY GENERAL: TOBACCO USE ARE YOU A:CURRENT SMOKER HOW OFTEN DO YOU SMOKE CIGARETTES?EVERY DAY HOW MANY CIGARETTES A DAY DO YOU SMOKE?6-10 ARE YOU INTERESTED IN QUITTING?NOT READY TO QUIT PATIENT COUNSELED ON THE DANGERS OF TOBACCO USE AND URGED TO QUIT:11/12/2019 COUNSELED THE PATIENT ON SMOKING EFFECTS, EDUCATION [id number]/13/2020 LATEX QUESTIONNAIRE LATEX ALLERGY : HAVE YOU EVER DEVELOPED ANY TYPE OF REACTION AFTER HANDLING LATEX PRODUCTS SUCH RUBBER GLOVES, CONDOMS, DIAPHRAGMS, BALLOONS, SOCKS, OR UNDERWEAR?NO LATEX ALLERGY : HAVE YOU EVER DEVELOPED ANY TYPE OF REACTION DURING OR AFTER DENTAL APPOINTMENT, VAGINAL/RECTAL EXAMINATION, SURGICAL PROCEDURE, OR ANY OTHER EXPOSURE?NO LATEX RISK : HAVE YOU EVER HAD ANY DIFFICULTY BREATHING OR HIVES AFTER EATING OR HANDLING ANY FRUITS, OR VEGETABLES; SUCH KIWI, BANANAS, STONE FRUITS, OR CHESTNUTSNO LATEX RISK : DO YOU HAVE A PREVIOUS PERSONAL HISTORY OF MORE THAN NINE SURGERIES, SPINA BIFIDA, OR REPEATED CATHERIZATIONS? NO LATEX RISK : ARE YOU FREQUENTLY EXPOSED TO LATEX PRODUCTS IN YOUR OCCUPATION?NO DATE ASKED : 11/30/2019 ALCOHOL SCREENING DID YOU HAVE A DRINK CONTAINING ALCOHOL IN THE PAST YEAR?NO POINTS0 INTERPRETATIONNEGATIVE RECREATIONAL DRUG USE DRUG USE?NO PATIENT DENIES ABUSE OR MISSUSED OF ANY MEDICATION DENIES PATIENT DENIES USE OF ANY ILLEGAL SUBSTANCE INCLUDING MARIJUANA OR COCAINE DENIES CAFFEINE CAFFEINE USE?YES HOW OFTEN AND HOW MUCH? 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 DIET: REGULAR. EXERCISE: NO REGULAR EXERCISE. MARITAL STATUS: . OTHERS AT HOME: SPOUSE. PAIN CLINIC PFS, CLERGY, PUBLIC HEALTH REFERRALS PFS REFERRAL NEEDED?NO CLERGY REFERRAL NEEDED?NO PUBLIC HEALTH REFERRAL NEEDED?NO HAS THE PATIENT BEEN EDUCATED REGARDING HIS/HER PLAN OF CARE?YES HAS THE PATIENT BEEN EDUCATED REGARDING PAIN, THE RISK FOR PAIN, THE IMPORTANCE OF EFFECTIVE PAIN MANAGEMENT, AND THE PAIN ASSESSMENT PROCESS?YES ADVANCE DIRECTIVE ADVANCE DIRECTIVE DISCUSSED WITH PATIENT:YES HCP - SAPNA MONROY [phone] HOSPITALIZATION/MAJOR DIAGNOSTIC PROCEDURE SEES ABOVE- SURGERIES HYPONATREMIA 09/2019 REVIEW OF SYSTEMS CONSTITUTIONAL: ANY RECENT FEVER NO . CHILLS NO . WEIGHT CHANGE OF UNKNOWN REASONS NO . GASTROENTEROLOGY: NEW UNEXPLAINABLE CHANGES IN BOWEL CONTROL NO . CONSTIPATION NO . GENITOURINARY: ANY NEW CHANGE IN BLADDER CONTROL? NO . NEUROLOGY: NEW ONSET DIZZINESS OR NEUROLOGICAL CHANGES NOT MENTIONED NO . NEW NUMBNESS OR PAIN PATTERNS NOT MENTIONED AND PERTINENT TO TODAY'S VISIT NO . CARDIOLOGY: NEW CHEST PRESSURE NO . NEW CHEST PAIN NO . RESPIRATORY: UNEXPLAINABLE COUGH NO . NEW SHORTNESS OF BREATH NO . VITAL SIGNS WT 161.6 LBS, HT 69 IN, BMI 23.86 INDEX, BP 146/98 MM HG, HR 75 /MIN, RR 18 /MIN, TEMP 97.6 F, OXYGEN SAT % 97%, SAFE IN ENV? (Y/N) YES, NA INITIALS AW 1116, REVIEWED BY: JS. EXAMINATION SHOULDER / UPPER ARM: SHOULDER:BILATERAL. RANGE OF MOTION:LIMITED RANGE OF MOTION ,30 DEGREES ABDUCTION HAS TO STOP DUE TO PAIN. STRENGTH:WEAK PUBLIC HEALTH REPRESENTATIVE STRENGTH R>L.MST WEAK R>L 3/5. PALPATION:TENDER BILAT.R>L TRIGGER POINTS OVER RHOMBOID ,MIDSCAPULAR SHOULDERS BILAT.TIGHT BANDS OF TISSUE NOTED THAT RESTRICTS ACTIVE ROJM DUE TO PAIN.. GENERAL EXAMINATION: GENERALNO ACUTE DISTRESS, WELL NOURISHED AND HYDRATED. PSYCHAPPROPRIATE MOOD AND AFFECT . LUNGS:CLEAR TO AUSCULTATION BILATERALLY, NO WHEEZES, RHONCHI, RALES. HEART:NO MURMURS, REGULAR RATE AND RHYTHM. ASSESSMENTS MYALGIA, OTHER SITE - M79.18 (PRIMARY) PAIN IN RIGHT SHOULDER - M25.511 PAIN IN LEFT SHOULDER - M25.512 TREATMENT MYALGIA, OTHER SITE NOTES: WORKMEN'S COMP REQUEST TRIGGER POINT INJECTIONS BILATERAL SHOULDERS. PROCEDURES PN WORKMANS' COMP OPINION IN YOUR OPINION, WAS THE INCIDENT THAT THE PATIENT DESCRIBED THE COMPETENT MEDICAL CAUSE OF THIS INJURY/ILLNESS? YES ARE THE PATIENT'S COMPLAINTS CONSISTENT WITH HIS/HER HISTORY OF THE INJURY/ILLNESS? YES IS THE PATIENT'S HISTORY OF THE INJURY/ILLNESS CONSISTENT WITH YOUR OBJECTIVE FINDING? YES WHAT IS THE PERCENTAGE OF TEMPORARY IMPAIRMENT? MODERATE TO MARKED = 66.7% IS THE PATIENT WORKING? NO DOCTOR ON SITE: DONTA QURESHI MD PROCEDURE CODES FA211 ESTABILISHED PATIENT [facility] CHARGE DISPOSITION & COMMUNICATION FOLLOW UP POST PROCEDURE (REASON: WORKMEN'S COMP REQUEST TRIGGER POINT INJECTIONS BILATERAL SHOULDERS) ELECTRONICALLY SIGNED BY PATO DE LA CRUZ ON 12/01/2019 AT 08:46 AM EDT DISCLAIMER : THIS IS A VISIT SUMMARY EXTRACTED FROM THE [employer] CHART. IT IS NOT A COPY OF THE [employer] PROGRESS NOTE. YULIET
== END ==
LOC: M PAIN 11:00
PROVIDERS: ATTEND Nurse Practitioner Family
DX: M79.18 Myalgia, other site (principal); M25.511 Pain in right shoulder; M25.512 Pain in left shoulder; I10 Essential (primary) hypertension; J44.9 Chronic obstructive pulmonary disease, unspecified; E55.9 Vitamin D deficiency, unspecified; F17.210 Nicotine dependence, cigarettes, uncomplicated; Z79.891 Long term (current) use of opiate analgesic; Z79.899 Other long term (current) drug therapy; Z88.0 Allergy status to penicillin; Z88.8 Allergy status to other drugs, medicaments and biological substances

== ENCOUNTER → 2019-12-06 | Outpatient (CLI) | payer OTHER, MEDICARE, BC ==
[~2019-12-06] MED LIST changes: +AMLO-179 PO; +OXYC10TA3
== END ==
LOC: M LABSMTC 10:23
PROVIDERS: ATTEND Anesthesiology
DX: Z01.812 Encounter for preprocedural laboratory examination (principal); Z20.828 Contact with and (suspected) exposure to other viral communicable diseases
CPT/HCPCS: C9803; U0003

== ENCOUNTER 2019-12-10 12:59 | Emergency (ER) | payer MEDICARE, BC ==
[~2019-12-10] VITALS: Ht 175.3 cm; Wt 72.8 kg
[~2019-12-10 12:59] MED LIST changes: -AMIT75TA PO; -AMLO-179 PO; -CARV12.5 PO; -DULO1CAP5 PO; -MORP-69 PO; -OXYC10TA3
[2019-12-10] MEDS ORDERED: PRIM250T8 PO (13:21)
[2019-12-10] MEDS ORDERED: SOMA350T PO (13:21)
[2019-12-10] MEDS ORDERED: DULO1CAP5 PO (13:21)
[2019-12-10] MEDS ORDERED: CARV12.5 PO (13:21)
[2019-12-10] MEDS ORDERED: MORP-69 PO (13:21)
[2019-12-10] MEDS ORDERED: GABA-843 PO (13:21)
[2019-12-10] MEDS ORDERED: AMIT75TA PO (13:25)
[2019-12-10] MEDS ORDERED: LOSA50TA88 PO (13:25)
[2019-12-10 13:28] LABS: BASO % 0.3 % (0.0-1.0); EOS # 0.1 10^3/uL (0.0-0.5); EOS % 1.2 % (0.0-3.0); HEMATOCRIT 40.5 % (42.0-52.0); HEMOGLOBIN 13.5 g/dl (13.5-17.5); LYMPH # 1.7 10^3/uL (1.5-5.0); LYMPH % 28.3 % (24.0-44.0); MEAN CORPUSCULAR HEMOGLOBIN 31.7 pg (27.0-33.0); MEAN CORPUSCULAR HGB CONC 33.3 g/dl (32.0-36.5); MEAN CORPUSCULAR VOLUME 95.1 fl (80.0-96.0); MONO # 0.3 10^3/uL (0.0-0.8); MONO % 4.6 % (0.0-5.0); NEUTROPHILS # 3.9 10^3/uL (1.5-8.5); NEUTROPHILS % 65.1 % (36.0-66.0); PLATELET COUNT, AUTOMATED 226 10^3/uL (150-450); RED BLOOD COUNT 4.26 10^6/uL (4.30-6.10); WHITE BLOOD COUNT 5.9 10^3/uL (4.0-10.0)
[2019-12-10 14:00] VITALS: BP 143/93
--- NOTE | 2019-12-10 14:06 | REP ---
INDICATION: CHEST PAIN. COMPARISON: None. TECHNIQUE: SINGLE PORTABLE AP VIEW OF THE CHEST WAS PERFORMED. FINDINGS: THERE IS NO ACUTE INFILTRATE OR PULMONARY EDEMA. LUNGS ARE CLEAR. HEART IS NOT SIGNIFICANTLY ENLARGED. MEDIASTINAL SILHOUETTE IS UNREMARKABLE. THE VISUALIZED OSSEOUS STRUCTURES ARE INTACT.Calcified granuloma again seen in the left lung base. IMPRESSION: NO ACUTE PULMONARY DISEASE. <Electronically signed by Scott Cornejo > 12/10/19 [id number]
--- NOTE | 2019-12-11 07:09 | ECGEPIP ---
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
== END 2019-12-10 14:22 | disposition home or self-care (01) ==
LOC: M ED 12:59
DX: R07.89 Other chest pain (principal); I10 Essential (primary) hypertension; G89.4 Chronic pain syndrome; G62.9 Polyneuropathy, unspecified; J44.9 Chronic obstructive pulmonary disease, unspecified; Z88.0 Allergy status to penicillin; Z79.899 Other long term (current) drug therapy

== ENCOUNTER → 2019-12-11 | Outpatient (CLI) | payer OTHER, MEDICARE, BC ==
[~2019-12-11] MED LIST changes: +AMIT75TA PO; +AMLO-179 PO; +BUPIVACAINE HCL 0.25% 10ML VIAL As Ordered ONE; +BUPIVACAINE HCL 0.25% 30ML VIAL As Ordered ONE; +CARV12.5 PO; +COMBAER6 INH; +DULO1CAP5 PO; +MORP-69 PO; +OMEP-221 PO; +OXYC10TA3 PO; +PRED20TA PO; +SUCR1TAB56 PO; +TRIAMCINOLONE ACETONIDE SUSP 40 MG/ML VIAL (J3301) As Ordered ONE
--- NOTE | 2019-12-22 02:05 | ECWPNPC ---
PATIENT NAME: TAMARA MONROY : 1965 GENDER: MALE VISIT DATE: 12/11/2019 DISCHARGE DATE: 12/11/19 1445 VISIT LOCKED DATE TIME: PHYSICIAN: DONTA ISAAC MD PHYSICIAN PAGER NO: ACTIVE RESOURCE: DONTA ISAAC MD REASON FOR APPOINTMENT 1. W/C TRIGGER POINT INJECTIONS BILATERAL SHOULDERS HISTORY OF PRESENT ILLNESS PAIN CENTER INTAKE QUESTIONS: DO YOU HAVE A HISTORY OF MRSA? :NO DO YOU TAKE A BLOOD THINNERS? :NO DO YOU HAVE ANY BLEEDING DISORDERS? :NO ANY NEW NUMBNESS OR WEAKNESS IN YOUR LEGS OR ARMS? :NO ANY PACEMAKER,DEFIBRILLATOR, OR DORSAL COLUMN STIMULATOR? :NO DO YOU HAVE ANY RASHES OR OPEN SORES? :NO ARE YOU ALLERGIC TO IV DYE? :NO ARE YOU DIABETIC? :NO ANY NEW PROBLEMS WITH YOUR MEDICATIONS? :NO HAVE YOU RECEIVED A VACCINE IN THE PAST 30 DAYS? :NO DO YOU PLAN TO RECEIVE A VACCINE IN THE NEXT 21 DAYS? :NO DO YOU TAKE ANY IMMUNOSUPPRESSIVE MEDICATIONS? :NO ANY HISTORY OF SEIZURES? :NO ANY HISTORY OF CARDIAC ISSUES OR EVENTS? :NO DO YOU HAVE SLEEP APNEA? :NO ANY RECENT HEAD INJURY? :NO DO YOU HAVE ANY NEW INFECTIONS? :NO IS THERE A CHANCE YOU COULD BE ? :NO ARE YOU BREAST FEEDING? :NO WHEN DID YOU LAST EAT? : 12/10/2019 1800 WHEN DID YOU LAST DRINK? : 1030 WHAT DID YOU LAST DRINK? : BLACK COFFEE NAME OF PERSON DRIVING YOU HOME? : SHARON () DO YOU HAVE ANY OTHER QUESTIONS OR CONCERNS? : NO GENERAL: -. FALL RISK SCREENING: SCREENING :NO FALLS REPORTED IN THE LAST YEAR PAIN SCREENING: PATIENT HAS A COMPLAINT OF ACUTE OR CHRONIC PAIN :YES LOCATION OF PAIN:BOTH SHOULDERS INTENSITY OF PAIN (SCALE OF 1 TO 10):9 WHAT DOES YOUR PAIN FEEL LIKE:CONTINOUS, THROBBING DURATION:CONSTANT, AWAKENS FROM SLEEP PLAN/GOALS/TREATMENT/INTERVENTION/FOLLOW UP:SEE PLAN NURSING NOTE: -. CURRENT MEDICATIONS TAKING MULTIVITAMINS OTC TABLET 1 TABLET ORALLY ONCE A DAY, NOTES: 0600 TAKING VITAMIN D (ERGOCALCIFEROL) 50347 UNIT CAPSULE 1 CAPSULE ORALLY ONCE A WEEK (MONDAYS), NOTES: 12/09/2019 TAKING GABAPENTIN 300 MG CAPSULE 1 CAPSULE ORALLY THREE TIMES A DAY, NOTES: 0600 TAKING LOSARTAN POTASSIUM 50 MG TABLET 1 TABLET ORALLY ONCE A DAY, NOTES: 0600 TAKING AMITRIPTYLINE HCL 25 MG TABLET 3 ORALLY ONCE A DAY, NOTES: 12/10/2019 1800 TAKING SPIRIVA RESPIMAT 2.5 MCG/ACT AEROSOL SOLUTION 2 PUFFS INHALATION ONCE A DAY, NOTES: NONE TODAY TAKING ATORVASTATIN CALCIUM 40 MG TABLET 1 TABLET ORALLY ONCE A DAY, NOTES: 0600 TAKING CYMBALTA 60 MG CAPSULE DELAYED RELEASE PARTICLES 1 CAPSULE ORALLY ONCE A DAY, NOTES: 0600 TAKING PERCOCET 10-325 MG TABLET 1 TABLET NEEDED ORALLY EVERY 6 HRS MDD4 #90 TAB SHOULD LAST 30 DAYS, NOTES: 0600 TAKING DIAZEPAM 2 MG TABLET 1 TABLET NEEDED ORALLY BID, NOTES: 0600 TAKING PROPRANOLOL HCL 20 MG TABLET 1 TABLET ORALLY BID, NOTES: 0600 NOT-TAKING BACLOFEN 20 MG TABLET 1 TABLET WITH FOOD OR MILK ORALLY Q6H QID NOT-TAKING SOMA 350 MG TABLET 1 TABLET ORALLY Q8H MDD3 NOT-TAKING NYSTATIN 523600 UNIT/GM CREAM 1 APPLICATION 2G EXTERNALLY TWICE A DAY TO RASH ON GROIN NOT-TAKING PERCOCET 10-325 MG TABLET 1 TABLET NEEDED ORALLY EVERY 6 HRSMDD4 NOT-TAKING LYRICA 300 MG CAPSULE 1 CAPSULE ORALLY BID MDD2 NOT-TAKING IBUPROFEN 800 MG TABLET 1 TABLET ORALLY NEEDED THREE TIMES A DAY NOT-TAKING VENTOLIN HFA 108 (90 BASE) MCG/ACT AEROSOL SOLUTION 1 PUFF NEEDED INHALATION EVERY 4 HRS NEEDED MEDICATION LIST REVIEWED AND RECONCILED WITH THE PATIENT PAST MEDICAL HISTORY CHRONIC LOW BACK PAIN - DDD RIGHT ARM PAIN - BICEPS TENDON RUPTURE - [facility] - S/P SURGICAL REPAIR 2013 WITH RESIDUAL NUMBNESS AND PAIN - MACROCYTIC ANEMIA PULMONARY NODULES - CHEST CT 09/25/13 - MILD COPD, OLD GRANULOMATOUS DISEASE WITH CALCIFIED 11MM NODULE IN LLL, CALCIFIED LEFT HILAR NODES. 3MM NONCALCIFIED PULMONARY NODULE JUST ADJACENT TO AND CONTINUOS WITH OTHER PULMONARY NODULE. RECOMMEND F/U CT CHEST 09/25. - F/U CT DONE 08/03/15 - CHRONIC CHANGES, STABLE 3 MM NODULE C/W 09/25/13 - NO FURTHER IMAGING NEEDED VITAMIN D DEFICIENCY RIGHT TORN ROTATOR CUFF/ TORN LEFT ROTATOR CUFF DEPRESSION HYPERTENSION BL HAND TREMOR - PER IMAGING AT [facility] - C-SPINE X-RAYS SHOWED SEVERE DEGENERATIVE CHANGES, MRI SHOWED MILD DEGENERATIVE CHANGES. F/U MRI PENDING PER NEUROSURGERY (COMP CASE) - NEUOLOGY DR. 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 2 SON(S) - HEALTHY. FATHER CIRRHOSIS OF LIVER\\MOTHER HAD BREAST CANCER, BONE CANCER. SOCIAL HISTORY GENERAL: TOBACCO USE ARE YOU A:CURRENT SMOKER ARE YOU INTERESTED IN QUITTING?NOT READY TO QUIT COUNSELED THE PATIENT ON SMOKING EFFECTS, EDUCATION [id number] HOW MANY CIGARETTES A DAY DO YOU SMOKE?6-10 HOW OFTEN DO YOU SMOKE CIGARETTES?EVERY DAY PATIENT COUNSELED ON THE DANGERS OF TOBACCO USE AND URGED TO QUIT:12/10/2019 LATEX QUESTIONNAIRE LATEX ALLERGY : HAVE YOU EVER DEVELOPED ANY TYPE OF REACTION AFTER HANDLING LATEX PRODUCTS SUCH RUBBER GLOVES, CONDOMS, DIAPHRAGMS, BALLOONS, SOCKS, OR UNDERWEAR?NO LATEX ALLERGY : HAVE YOU EVER DEVELOPED ANY TYPE OF REACTION DURING OR AFTER DENTAL APPOINTMENT, VAGINAL/RECTAL EXAMINATION, SURGICAL PROCEDURE, OR ANY OTHER EXPOSURE?NO LATEX RISK : HAVE YOU EVER HAD ANY DIFFICULTY BREATHING OR HIVES AFTER EATING OR HANDLING ANY FRUITS, OR VEGETABLES; SUCH KIWI, BANANAS, STONE FRUITS, OR CHESTNUTSNO LATEX RISK : DO YOU HAVE A PREVIOUS PERSONAL HISTORY OF MORE THAN NINE SURGERIES, SPINA BIFIDA, OR REPEATED CATHERIZATIONS? NO LATEX RISK : ARE YOU FREQUENTLY EXPOSED TO LATEX PRODUCTS IN YOUR OCCUPATION?NO DATE ASKED : 12/10/2019 ALCOHOL SCREENING DID YOU HAVE A DRINK CONTAINING ALCOHOL IN THE PAST YEAR?NO POINTS0 INTERPRETATIONNEGATIVE RECREATIONAL DRUG USE DRUG USE?NO PATIENT DENIES ABUSE OR MISSUSED OF ANY MEDICATION DENIES PATIENT DENIES USE OF ANY ILLEGAL SUBSTANCE INCLUDING MARIJUANA OR COCAINE DENIES CAFFEINE CAFFEINE USE?YES HOW OFTEN AND HOW MUCH? 6 CUPS COFFEE/DAY SEXUAL HX HAD SEX IN THE LAST 12 MONTHS (VAGINAL, ORAL, OR ANAL)?NO HAVE YOU EVER HAD AN STD?NO ANABAPTIST [id number] CONGREGATION LANGUAGE LANGUAGES SPOKEN:WOLOF EDUCATION LEVEL OF EDUCATION:COLLEGE LEARNING BARRIERS / SPECIAL NEEDS CHANGE FROM LAST VISIT?NO BARRIERS TO LEARNING?NO HEARING IMPAIRED?NO VISION IMPAIRED?YES :CORRECTIVE LENSES COGNITIVELY IMPAIRED?NO READINESS TO LEARN?YES LEARNING PREFERENCES?NO LEARNING CAPABILITIES PRESENT?YES EMOTIONAL BARRIERS?NO SPECIAL DEVICES?NO CORN DETASSELER MACHINE OPERATOR NEEDED?NO DOMESTIC VIOLENCE DO YOU FEEL SAFE IN YOUR ENVIRONMENT?YES 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 DIET: REGULAR. EXERCISE: NO REGULAR EXERCISE. MARITAL STATUS: . OTHERS AT HOME: SPOUSE. PAIN CLINIC PFS, CLERGY, PUBLIC HEALTH REFERRALS PFS REFERRAL NEEDED?NO CLERGY REFERRAL NEEDED?NO PUBLIC HEALTH REFERRAL NEEDED?NO HAS THE PATIENT BEEN EDUCATED REGARDING HIS/HER PLAN OF CARE?YES HAS THE PATIENT BEEN EDUCATED REGARDING PAIN, THE RISK FOR PAIN, THE IMPORTANCE OF EFFECTIVE PAIN MANAGEMENT, AND THE PAIN ASSESSMENT PROCESS?YES ADVANCE DIRECTIVE ADVANCE DIRECTIVE DISCUSSED WITH PATIENT:YES HCP - SAPNA MONROY [phone] HOSPITALIZATION/MAJOR DIAGNOSTIC PROCEDURE SEES ABOVE- SURGERIES HYPONATREMIA 09/2019 VITAL SIGNS WT 160.8 LBS, HT 69 IN, BMI 23.74 INDEX, BP 150/100 MM HG, REPEAT BP MANUAL BP, HR 92 /MIN, RR 18 /MIN, TEMP 98.2 F, OXYGEN SAT % 98%, SAFE IN ENV? (Y/N) Y, NA INITIALS AW 1338, REVIEWED BY: JS. EXAMINATION GENERAL EXAMINATION: THE PATIENT IS ALERT, ORIENTED TIMES THREE AND COOPERATIVE. HEART SHOWS REGULAR RHYTHM, NO MURMURS AND NO GALLOPS. LUNGS ARE CLEAR TO AUSCULTATION. ASSESSMENTS MYALGIA, OTHER SITE - M79.18 (PRIMARY), RISK: (NULL) TREATMENT OTHERS NOTES: PATIENT EDUCATED ON THE IMPORTANCE OF WAITING FOR THE FLU VACCINE UNTIL 21 DAYS POST PROCEDURE IF USING STEROIDS. CLINICAL NOTES: PAT COMPLETED 12/10/19 1603 MT. PROCEDURES PAIN NURSING RECORD PRE-PROCEDURE IV SITE N/A, PRE-PROCEDURE ORAL MEDICATIONS NONE PROCEDURE IN ROOM 1330, PHYSICIAN IN ROOM 1421, START 1425, FINISH 1430, PHYSICIAN OUT OF ROOM 1431, OUT OF ROOM 1443, STEROID KENALOG, O2 RA, ECG N/A, PATIENT SHIELDED NO, SAFETY STRAP NO, PREP ALCOHOL BY DR. ISAAC, IV INFUSED N/A, DRESSING TEGADERM BY Piedad FELIX RN LOC: LUCIO FELIX 12/11/2019 2:26:19 PM > , 1. ALERT, ORIENTED RESP: LUCIO FELIX 12/11/2019 2:26:19 PM > 1. REGULAR, NO DYSPNEA COLOR: LUCIO FELIX 12/11/2019 2:26:19 PM >, 1. PINK SKIN: LUCIO FELIX 12/11/2019 2:26:19 PM >, 1. WARM, DRY POSITION: LUCIO FELIX 12/11/2019 2:26:19 PM >, 4. OTHER VITALS: LUCIO FELIX 12/11/2019 2:38:10 PM > 148/96, 66, 16, 98% DISCHARGE: POST PAIN 6, DRESSING SITE DRY AND INTACT, IV N/A, GAIT STEADY, TEACHING COMPLETED, PATIENT ACKNOWLEDGES UNDERSTANDING YES, PATIENT DISCHARGED AT 1443 PN WORKMANS' COMP OPINION IN YOUR OPINION, WAS THE INCIDENT THAT THE PATIENT DESCRIBED THE COMPETENT MEDICAL CAUSE OF THIS INJURY/ILLNESS? YES ARE THE PATIENT'S COMPLAINTS CONSISTENT WITH HIS/HER HISTORY OF THE INJURY/ILLNESS? YES IS THE PATIENT'S HISTORY OF THE INJURY/ILLNESS CONSISTENT WITH YOUR OBJECTIVE FINDING? YES WHAT IS THE PERCENTAGE OF TEMPORARY IMPAIRMENT? MARKED = 75% . IS THE PATIENT WORKING? NO . DOCTOR ON SITE: DONTA QURESHI MD PN TRIGGER POINT INJECTION WITH STEROIDS PRE PROCEDURE DIAGNOSIS 1. MYALGIA 2. PAIN AT BILATERAL SHOULDER AREA POST PROCEDURE DIAGNOSIS 1. MYALGIA 2. PAIN AT BILATERAL SHOULDER AREA PROCEDURE TRIGGER POINT INJECTION AT BILATERAL SHOULDER AREA SURGEON DR. DONTA ISAAC CHANNEL INSTALLER NONE ANESTHESIA LOCAL PRE PROCEDURE NOTE THE PATIENT HAS A HISTORY OF CHRONIC PAIN AT THE RIGHT AND LEFT SHOULDER AREA. I EVALUATED THE PATIENT AND REVIEWED THE CHART. THERE IS EVIDENCE OF BANDS OF TISSUE WITH RESTRICTION OF MOVEMENT AND PRESENCE OF TRIGGER POINT AT THE RIGHT AND LEFT SHOULDER AREA. I WENT OVER THE RISKS, ALTERNATIVES, AND BENEFITS ASSOCIATED WITH THIS PROCEDURE. I DISCUSSED THAT THE USE OF STEROIDS MAY CONTRIBUTE TO IMMUNOSUPPRESSION OF THE PATIENT'S BODY AGAINST INFECTIONS SUCH COVID-19. THE PATIENT IS AWARE OF THE POTENTIAL COMPLICATIONS ASSOCIATED WITH THIS VIRUS, INCLUDING, BUT NOT LIMITED TO, . THE PATIENT WOULD LIKE TO PROCEED AND GIVE CONSENT TO PERFORMED THE PROCEDURE. THE PATIENT DENIES UNEXPLAINABLE WEIGHT LOSS, FEVER, CHILLS, OR NEW CHANGES IN URINARY OR BOWEL CONTROL. THE PATIENT COVID-19 NEGATIVE DESCRIPTION OF PROCEDURE THE PATIENT WAS BROUGHT TO THE PROCEDURE ROOM AND PLACED IN THE SITTING POSITION. THE AREA WAS CLEANED WITH ALCOHOL. THE PROCEDURE WAS DONE USING ASEPTIC STERILE TECHNIQUE. A TIMEOUT WAS PERFORMED WHERE LATERALITY AND THE SITE OF THE PROCEDURE WERE CHECKED AND CONFIRMED WITH EVERYONE IN THE ROOM. USING A 25-GAUGE NEEDLE, TRIGGER POINTS WERE INJECTED AT THE RIGHT AND LEFT SHOULDER AREA WITH A TOTAL OF 40 ML OF BUPIVACAINE 0.25% AND KENALOG 40 MG. THE MEDICATIONS WERE VERIFIED WITH THE NURSE. THERE WAS NO EVIDENCE OF BLOOD OR PARESTHESIA DURING THE PROCEDURE. THE PATIENT WAS SENT TO THE RECOVERY ROOM. THE PATIENT WAS MOVING THE EXTREMITIES AND DOING WELL. THERE WERE NO COMPLICATIONS DURING THE PROCEDURE. ESTIMATED BLOOD LOSS WAS LESS THAN 5 ML POST PROCEDURE NOTE THE PROCEDURE DONE WAS DISCUSSED WITH THE PATIENT. THE PATIENT WILL BE SEEN IN A FOLLOW UP IN THE NEXT FEW WEEKS. I AM LOOKING FOR LONG LASTING PAIN RELIEF FOR THE PATIENT WITH THIS INTERVENTION. INSTRUCTIONS WERE GIVEN, QUESTIONS WERE ANSWERED, AND THE PATIENT EXPRESSED UNDERSTANDING AND AGREES WITH THE PLAN. I, CONCETTA ABBOTT, DOCUMENTED THE ABOVE INFORMATION ACTING A SCRIBE FOR DR. ISAAC. I HAVE REVIEWED THE ABOVE DOCUMENT, WRITTEN BY CONCETTA ABBOTT, SENIOR SALES ENGINEER, AND I VERIFY THAT IT IS ACCURATE PROCEDURE CODES 37919 INJ TRIGGER POINT / MUSCL DISPOSITION & COMMUNICATION FOLLOW UP FOLLOW UP WITH GREASE REFINER OPERATOR (REASON: W/C POST TPI BILATERAL LOWER BACK AREA) ELECTRONICALLY SIGNED BY DONTA ISAAC MD, MD ON 12/21/2019 AT 02:40 PM EST DISCLAIMER : THIS IS A VISIT SUMMARY EXTRACTED FROM THE [employer] CHART. IT IS NOT A COPY OF THE [employer] A/[employer] PROGRESS NOTE. YULIET
== END ==
LOC: M PAIN 13:30
PROVIDERS: ATTEND Anesthesiology
DX: M79.18 Myalgia, other site (principal); I10 Essential (primary) hypertension; F32.9 Major depressive disorder, single episode, unspecified; J44.9 Chronic obstructive pulmonary disease, unspecified; E55.9 Vitamin D deficiency, unspecified; F17.210 Nicotine dependence, cigarettes, uncomplicated; Z88.0 Allergy status to penicillin; Z88.8 Allergy status to other drugs, medicaments and biological substances; Z79.891 Long term (current) use of opiate analgesic; Z79.899 Other long term (current) drug therapy
CPT/HCPCS: 20552; J3301

== ENCOUNTER → 2019-12-17 | Outpatient (REF) | payer BC, MEDICARE ==
[~2019-12-17] MED LIST changes: +ACET-908 PO; +AMLO1TAB25 PO; +ASPI81CH33 PO; -BUPIVACAINE HCL 0.25% 10ML VIAL As Ordered ONE; -BUPIVACAINE HCL 0.25% 30ML VIAL As Ordered ONE; +SPIR12.9 INH; -TRIAMCINOLONE ACETONIDE SUSP 40 MG/ML VIAL (J3301) As Ordered ONE
[2019-12-17 17:24] LABS: ALBUMIN 4.3 GM/DL (3.2-5.2); ALT/SGPT 14 U/L (12-78); BILIRUBIN,TOTAL 0.3 MG/DL (0.2-1.0); BLOOD UREA NITROGEN 15 MG/DL (7-18); CALCIUM LEVEL 9.5 MG/DL (8.5-10.1); CARBON DIOXIDE LEVEL 28 MEQ/L (21-32); CHLORIDE LEVEL 102 MEQ/L (98-107); CREATININE FOR GFR 1.01 MG/DL (0.70-1.30); GLOMERULAR FILTRATION RATE > 60.0 (>56); GLUCOSE, FASTING 92 MG/DL (70-100); POTASSIUM SERUM 5.2 MEQ/L (3.5-5.1); SODIUM LEVEL 135 MEQ/L (136-145); TOTAL PROTEIN 7.5 GM/DL (6.4-8.2)
== END ==
LOC: M SFHCADAM 11:31
PROVIDERS: ATTEND Physician Assistant
DX: Z01.818 Encounter for other preprocedural examination (principal); Z79.899 Other long term (current) drug therapy
CPT/HCPCS: 80053; G0463

== ENCOUNTER 2019-12-18 16:06 | Emergency (ER) | payer BC, MEDICARE ==
[~2019-12-18] VITALS: Ht 175.3 cm; Wt 70.7 kg
[~2019-12-18 16:06] MED LIST changes: -ACET-908 PO; -AMLO-179 PO; -AMLO1TAB25 PO; -ASPI81CH33 PO; -COMBAER6 INH; -OMEP-221 PO; -OXYC10TA3 PO; -PRED20TA PO; -SPIR12.9 INH; -SUCR1TAB56 PO
[2019-12-18] MEDS ORDERED: ASPIRIN 325 MG TAB PO ONE (16:30)
[2019-12-18] MEDS ORDERED: GI COCKTAIL 50ML BTL(HYOSCYAMINE/MAALOX/LIDOCAINE VISCOUS)(1:3:1) PO ONE (16:30)
[2019-12-18 16:54] LABS: BASO % 0.4 % (0.0-1.0); EOS # 0.1 10^3/uL (0.0-0.5); EOS % 0.8 % (0.0-3.0); HEMATOCRIT 45.3 % (42.0-52.0); LYMPH # 2.4 10^3/uL (1.5-5.0); LYMPH % 33.4 % (24.0-44.0); MEAN CORPUSCULAR HEMOGLOBIN 31.4 pg (27.0-33.0); MEAN CORPUSCULAR HGB CONC 33.1 g/dl (32.0-36.5); MONO # 0.5 10^3/uL (0.0-0.8); MONO % 7.2 % (0.0-5.0); NEUTROPHILS # 4.2 10^3/uL (1.5-8.5); NEUTROPHILS % 57.9 % (36.0-66.0); PLATELET COUNT, AUTOMATED 252 10^3/uL (150-450); RED BLOOD COUNT 4.77 10^6/uL (4.30-6.10); WHITE BLOOD COUNT 7.2 10^3/uL (4.0-10.0)
--- NOTE | 2019-12-18 16:55 | REP ---
INDICATION: CHEST PAIN. COMPARISON: 12/10/2019. FINDINGS: The technique utilized in obtaining the radiograph has magnified the cardiac silhouette and accentuated the interstitial markings. The superior mediastinal structures are midline. The cardiac silhouette is unremarkable in size, shape, and position. The diaphragmatic surfaces of the lungs are regular, and the costophrenic angles are clear. The pulmonary hensley are unchanged. The imaged osseous structures are intact. Note is again made again made of an incidental calcified granuloma in the left lower lobe. Once again, the right CP angle has not been included on the radiograph. Note is again made of chronic biapical pleuroparenchymal scarring. IMPRESSION: There is no acute cardiopulmonary disease. <Electronically signed by Fred Patel > 12/18/19 [id number]
[2019-12-18] MEDS ORDERED: OXYC10TA3 PO (16:59)
[2019-12-18 17:24] LABS: ALBUMIN 4.3 GM/DL (3.2-5.2); ALT/SGPT 14 U/L (12-78); BILIRUBIN,DIRECT < 0.1 MG/DL (0.0-0.2); BILIRUBIN,TOTAL 0.3 MG/DL (0.2-1.0); BLOOD UREA NITROGEN 15 MG/DL (7-18); CALCIUM LEVEL 9.4 MG/DL (8.5-10.1); CARBON DIOXIDE LEVEL 28 MEQ/L (21-32); CHLORIDE LEVEL 100 MEQ/L (98-107); CK-MB VALUE MASS < 1.0 NG/ML (<3.6); CPK CREATINE PHOSPHOKINASE 70 U/L (39-308); CREATININE FOR GFR 1.09 MG/DL (0.70-1.30); FREE T4 1.21 NG/DL (0.76-1.46); GLOMERULAR FILTRATION RATE > 60.0 (>56); GLUCOSE, FASTING 88 MG/DL (70-100); LIPASE 27 U/L (73-393); MB/CK RELATIVE INDEX 1.43 (< OR =4); POTASSIUM SERUM 4.1 MEQ/L (3.5-5.1); SODIUM LEVEL 132 MEQ/L (136-145); TOTAL PROTEIN 7.6 GM/DL (6.4-8.2); TROPONIN I < 0.02 NG/ML (< 0.10)
[2019-12-18 17:45] VITALS: BP 134/94
--- NOTE | 2019-12-19 16:54 | ECGEPIP ---
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
== END 2019-12-18 17:57 | disposition home or self-care (01) ==
LOC: M ED 16:06
DX: K21.9 Gastro-esophageal reflux disease without esophagitis (principal); R07.9 Chest pain, unspecified; F17.200 Nicotine dependence, unspecified, uncomplicated; F41.9 Anxiety disorder, unspecified; I11.9 Hypertensive heart disease without heart failure; J44.9 Chronic obstructive pulmonary disease, unspecified; Z88.0 Allergy status to penicillin

== ENCOUNTER 2019-12-20 00:12 | Emergency (ER) | payer MEDICARE, BC ==
[~2019-12-20] VITALS: Ht 175.3 cm; Wt 71.8 kg
[~2019-12-20 00:12] MED LIST changes: +OXYC10TA3
[2019-12-20 00:13] VITALS: BP 146/96
[2019-12-20] MEDS ORDERED: PROP20TA72 PO (17:17)
[2019-12-20] MEDS ORDERED: AMLO-179 PO (17:17)
== END 2019-12-20 00:15 | disposition left against medical advice (07) ==
LOC: M ED 00:12
DX: Z53.21 Procedure and treatment not carried out due to patient leaving prior to being seen by health care provider (principal)

== ENCOUNTER 2019-12-20 16:29 | Emergency (ER) | payer BC, MEDICARE ==
[~2019-12-20] VITALS: Ht 175.3 cm; Wt 71.8 kg
[~2019-12-20 16:29] MED LIST changes: -OXYC10TA3; +OXYC10TA3 PO
[2019-12-20] MEDS ORDERED: diphenhydrAMINE 50MG/ML VIAL (J1200) IV STA (16:52)
[2019-12-20] MEDS ORDERED: NS 500 ML IV ONE (17:00)
[2019-12-20 17:02] LABS: BASO % 0.5 % (0.0-1.0); EOS # 0.1 10^3/uL (0.0-0.5); EOS % 1.5 % (0.0-3.0); HEMATOCRIT 41.8 % (42.0-52.0); HEMOGLOBIN 14.1 g/dl (13.5-17.5); LYMPH # 1.9 10^3/uL (1.5-5.0); MEAN CORPUSCULAR HEMOGLOBIN 31.9 pg (27.0-33.0); MEAN CORPUSCULAR HGB CONC 33.7 g/dl (32.0-36.5); MEAN CORPUSCULAR VOLUME 94.6 fl (80.0-96.0); MONO # 0.4 10^3/uL (0.0-0.8); MONO % 7.2 % (0.0-5.0); NEUTROPHILS # 3.6 10^3/uL (1.5-8.5); NEUTROPHILS % 59.3 % (36.0-66.0); PLATELET COUNT, AUTOMATED 230 10^3/uL (150-450); RED BLOOD COUNT 4.42 10^6/uL (4.30-6.10); WHITE BLOOD COUNT 6.1 10^3/uL (4.0-10.0)
--- NOTE | 2019-12-20 17:04 | REP ---
INDICATION: CHEST PAIN. COMPARISON: Portable chest 12/18/2019, 12/10/2019; CT 08/03/2015 TECHNIQUE: AP seated chest FINDINGS: Lungs are well inflated there is apical pleuroparenchymal scarring and a calcified granuloma laterally in the left base all unchanged. No effusion infiltrate atelectasis or mass. Heart, mediastinal and hilar contours are unchanged and without acute finding the aorta is mildly tortuous and ectatic but stable this is a few calcifications in the arch. The pulmonary arteries are prominent centrally. Bony thorax shows degenerative changes. No free air under the diaphragm. IMPRESSION: 1. Some old granulomatous disease and apical pleuroparenchymal scarring but no acute cardiopulmonary changes. Stable chest. <Electronically signed by Stephan Vogt > 12/20/19 1706
[2019-12-20] MEDS ORDERED: PROP20TA72 PO (17:17)
[2019-12-20] MEDS ORDERED: AMLO-179 PO (17:17)
[2019-12-20 17:39] LABS: ALBUMIN 3.9 GM/DL (3.2-5.2); ALT/SGPT 14 U/L (12-78); BILIRUBIN,DIRECT < 0.1 MG/DL (0.0-0.2); BILIRUBIN,TOTAL 0.2 MG/DL (0.2-1.0); BLOOD UREA NITROGEN 12 MG/DL (7-18); CALCIUM LEVEL 8.8 MG/DL (8.5-10.1); CARBON DIOXIDE LEVEL 28 MEQ/L (21-32); CHLORIDE LEVEL 104 MEQ/L (98-107); CREATININE FOR GFR 1.06 MG/DL (0.70-1.30); FREE T4 1.17 NG/DL (0.76-1.46); GLOMERULAR FILTRATION RATE > 60.0 (>56); GLUCOSE, FASTING 93 MG/DL (70-100); LIPASE 50 U/L (73-393); POTASSIUM SERUM 4.5 MEQ/L (3.5-5.1); SODIUM LEVEL 137 MEQ/L (136-145); THYROID STIMULATING HORMONE 0.927 uIU/ML (0.358-3.740)
[2019-12-20 18:15] VITALS: BP 132/97
--- NOTE | 2019-12-21 09:46 | ECGEPIP ---
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
== END 2019-12-20 18:33 | disposition home or self-care (01) ==
LOC: M ED 16:29
DX: F41.9 Anxiety disorder, unspecified (principal); T43.505A Adverse effect of unspecified antipsychotics and neuroleptics, initial encounter; F32.9 Major depressive disorder, single episode, unspecified; F17.200 Nicotine dependence, unspecified, uncomplicated; J44.9 Chronic obstructive pulmonary disease, unspecified; I10 Essential (primary) hypertension; Z88.0 Allergy status to penicillin
CPT/HCPCS: 71045; 80048; 80076; 83690; 84439; 84443; 84484; 85025; 93005; 93041; 94760; 96374; 99285; J1200

== ENCOUNTER → 2019-12-22 | Outpatient (CLI) | payer BC, MEDICARE ==
[~2019-12-22] MED LIST changes: +ACET-908 PO; +AMLO-179 PO; +AMLO1TAB25 PO; +ASPI81CH33 PO; +COMBAER6 INH; +OMEP-221 PO; +PRED20TA PO; +SPIR12.9 INH; +SUCR1TAB56 PO
--- NOTE | 2019-12-23 09:57 | ECHO ---
DATE OF PROCEDURE: 12/22/2019 Age: 54 Gender: Male Height: 69 inches Weight: 150 pounds REFERRING PHYSICIAN: MARIA TERESA Escamilla. INDICATION: Localized edema, unspecified. MEASUREMENTS: 2D Measurements: Aortic root 3.8 cm Left atrium 3.3 cm Interventricular septum 1.44 cm Left ventricular diastole 3.9 cm LVOT 2.2 cm Inferior vena cava 1.7 cm with more than 50% respiratory variation Doppler Measurements: Trace aortic regurgitation No aortic stenosis Aortic valve velocity 79.8 cm/s No mitral regurgitation Mitral E velocity 44.9 cm/s Mitral A velocity 72.6 cm/s Mild tricuspid regurgitation Estimated right ventricle systolic pressure 30-35 mmHg Estimated right atrial pressure 5-10 mmHg No pulmonic regurgitation Pulmonary artery acceleration time 158 m/s suggestive of normal PA systolic pressure MITRAL ANNULAR TISSUE DOPPLER E prime septal 3.9 cm/s, E prime lateral 5.0 cm/s DESCRIPTION: Rhythm was sinus tachycardia. This was a moderately technically difficult echocardiogram. This was a 2D, M-mode, color flow Doppler, and pulsed wave Doppler examination including mitral annular tissue Doppler. CONCLUSIONS: 1. Suggestive of normal central venous pressure (5-10 mmHg). 2. Normal pulmonary artery systolic pressure versus estimated right ventricle systolic pressure to be at the upper limits of normal to mildly increased. Normal right ventricle size and systolic function. Normal right atrial size. 3. Mild concentric left ventricular hypertrophy. Hyperdynamic left ventricular LV systolic function. LVEF 75% by visual estimate. Grade 1 LV diastolic function (impaired relaxation filling pattern). 4. Very mild dilatation of the aortic root at the level of the sinuses of Valsalva (3.8 cm). 5. No pericardial effusion. 6. Very mild aortic valve sclerosis with a 3-cuspid aortic valve aortic valve. Trace aortic regurgitation. 7. Otherwise normal appearing echocardiogram Doppler findings. 8. Moderately technically difficult echocardiogram. [facility]
== END ==
LOC: M CARPUL 08:01
PROVIDERS: ATTEND Physician Assistant
DX: R60.9 Edema, unspecified (principal)
CPT/HCPCS: 93306; G0463

== ENCOUNTER 2019-12-23 11:23 | Emergency (ER) | payer MEDICARE, BC ==
[~2019-12-23] VITALS: Ht 175.3 cm; Wt 71.4 kg
[~2019-12-23 11:23] MED LIST changes: -ACET-908 PO; -AMLO1TAB25 PO; -ASPI81CH33 PO; -COMBAER6 INH; -OMEP-221 PO; -PRED20TA PO; -SPIR12.9 INH; -SUCR1TAB56 PO
[2019-12-23] MEDS ORDERED: SUCR1TAB56 PO (12:55)
[2019-12-23] MEDS ORDERED: OMEP-221 PO (12:55)
[2019-12-23 13:01] LABS: HEMATOCRIT 40.9 % (42.0-52.0); HEMOGLOBIN 13.5 g/dl (13.5-17.5); MEAN CORPUSCULAR HEMOGLOBIN 31.6 pg (27.0-33.0); MEAN CORPUSCULAR VOLUME 95.8 fl (80.0-96.0); PLATELET COUNT, AUTOMATED 209 10^3/uL (150-450); RED BLOOD COUNT 4.27 10^6/uL (4.30-6.10); WHITE BLOOD COUNT 5.6 10^3/uL (4.0-10.0)
[2019-12-23] MEDS ORDERED: GABAPENTIN 300 MG CAP PO ONE (13:15)
[2019-12-23 13:40] LABS: BLOOD UREA NITROGEN 11 MG/DL (7-18); CALCIUM LEVEL 8.7 MG/DL (8.5-10.1); CARBON DIOXIDE LEVEL 29 MEQ/L (21-32); CHLORIDE LEVEL 104 MEQ/L (98-107); CK-MB VALUE MASS < 1.0 NG/ML (<3.6); CPK CREATINE PHOSPHOKINASE 59 U/L (39-308); CREATININE FOR GFR 0.91 MG/DL (0.70-1.30); GLOMERULAR FILTRATION RATE > 60.0 (>56); GLUCOSE, FASTING 103 MG/DL (70-100); MB/CK RELATIVE INDEX 1.69 (< OR =4); NT-PRO BNP 35 PG/ML (<125); POTASSIUM SERUM 4.3 MEQ/L (3.5-5.1); SODIUM LEVEL 139 MEQ/L (136-145); TROPONIN I < 0.02 NG/ML (< 0.10)
[2019-12-23] MEDS ORDERED: COMBIVENT RESPIMAT 100-20MCG INHALER 4GM INH ONE (13:45)
[2019-12-23] MEDS ORDERED: dexameTHASONE 20MG/5ML VIAL (J1100 PER 1MG) IV ONE (13:45)
[2019-12-23] MEDS ORDERED: PRED20TA PO (14:56)
[2019-12-23] MEDS ORDERED: COMBAER6 INH (14:56)
[2019-12-23 15:00] VITALS: BP 140/95
[2019-12-23] MEDS ORDERED: diazePAM 2 MG TAB PO ONE (15:15)
--- NOTE | 2019-12-24 18:52 | ECGEPIP ---
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
== END 2019-12-23 15:28 | disposition home or self-care (01) ==
LOC: EDBD 11:23 → M ED 11:23
DX: J45.909 Unspecified asthma, uncomplicated (principal); F41.9 Anxiety disorder, unspecified; I11.9 Hypertensive heart disease without heart failure; F33.9 Major depressive disorder, recurrent, unspecified; F17.200 Nicotine dependence, unspecified, uncomplicated; Z88.0 Allergy status to penicillin; Z79.899 Other long term (current) drug therapy
CPT/HCPCS: 80048; 82550; 82553; 83880; 84443; 84484; 85027; 93005; 94640; 96374; 99284; J1100; U0002

== ENCOUNTER 2019-12-24 21:01 | Emergency (ER) | payer BC, MEDICARE ==
[~2019-12-24 21:01] MED LIST changes: +COMBAER6 INH; +OMEP-221 PO; +PRED20TA PO; +SUCR1TAB56 PO
[2019-12-24 21:15] VITALS: BP 134/93
--- NOTE | 2019-12-24 21:46 | REPVR ---
PROCEDURE INFORMATION: Exam: XR Chest, 1 View Exam date and time: 12/24/2019 9:34 PM Age: 54 years old Clinical indication: Chest pain; Additional info: Anxiety TECHNIQUE: Imaging protocol: XR of the chest Views: 1 view. COMPARISON: AL PORTABLE CHEST X-RAY 12/20/2019 4:48 PM FINDINGS: Lungs: Calcified granuloma in the lateral left base is unchanged. Mild pulmonary hyperinflation is again noted. No interval focal infiltrates. Pleural space: Unremarkable. No pleural effusion. No pneumothorax. Heart/Mediastinum: The heart and mediastinum are unchanged. Bones/joints: Unremarkable. IMPRESSION: There has been no change since 12/20/2019 with suggestion of some degree of COPD. No acute interval process is identified. Electronically signed by: Kenyon Barajas On 12/24/2019 21:46:22 PM
== END 2019-12-24 22:40 | disposition home or self-care (01) ==
LOC: M ED 21:01
DX: J45.909 Unspecified asthma, uncomplicated (principal); F41.9 Anxiety disorder, unspecified; I10 Essential (primary) hypertension; F17.200 Nicotine dependence, unspecified, uncomplicated; Z79.51 Long term (current) use of inhaled steroids; Z79.891 Long term (current) use of opiate analgesic; Z79.899 Other long term (current) drug therapy; Z88.0 Allergy status to penicillin
CPT/HCPCS: 71045; 99284; G0463

== ENCOUNTER 2019-12-26 08:31 | Emergency (ER) | payer BC, MEDICARE ==
[~2019-12-26] VITALS: Ht 175.3 cm; Wt 72.3 kg
[2019-12-26 10:07] VITALS: BP 166/88
--- NOTE | 2019-12-28 09:56 | ECGEPIP ---
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
== END 2019-12-26 10:10 | disposition home or self-care (01) ==
LOC: M ED 08:31 → EDBD 08:31 → M ED 10:10
DX: R06.00 Dyspnea, unspecified (principal); I10 Essential (primary) hypertension; E78.5 Hyperlipidemia, unspecified; J44.9 Chronic obstructive pulmonary disease, unspecified; G89.29 Other chronic pain; M54.5 Low back pain; F41.0 Panic disorder [episodic paroxysmal anxiety]; F17.200 Nicotine dependence, unspecified, uncomplicated; Z88.0 Allergy status to penicillin; Z79.899 Other long term (current) drug therapy

== ENCOUNTER 2019-12-27 03:03 | Emergency (ER) | payer BC, MEDICARE ==
[~2019-12-27] VITALS: Ht 175.3 cm; Wt 72.7 kg
[2019-12-27 04:00] LABS: HEMATOCRIT 40.6 % (42.0-52.0); HEMOGLOBIN 13.5 g/dl (13.5-17.5); MEAN CORPUSCULAR HEMOGLOBIN 31.3 pg (27.0-33.0); MEAN CORPUSCULAR HGB CONC 33.3 g/dl (32.0-36.5); MEAN CORPUSCULAR VOLUME 94.2 fl (80.0-96.0); PLATELET COUNT, AUTOMATED 224 10^3/uL (150-450); RED BLOOD COUNT 4.31 10^6/uL (4.30-6.10); WHITE BLOOD COUNT 6.3 10^3/uL (4.0-10.0)
[2019-12-27 04:23] LABS: ATYPICAL LYMPH 17 % (0-5); LYMPHOCYTES 40 % (16-44); MONOCYTES 6 % (0-5); NEUTROPHILS 37 % (28-66)
[2019-12-27 04:24] LABS: PLATELET CLUMPS SMALL AMT; PLATELET ESTIMATE NORMAL (NORMAL)
[2019-12-27 04:37] LABS: ALBUMIN 3.9 GM/DL (3.2-5.2); ALT/SGPT 14 U/L (12-78); BILIRUBIN,DIRECT 0.1 MG/DL (0.0-0.2); BILIRUBIN,TOTAL 0.3 MG/DL (0.2-1.0); BLOOD UREA NITROGEN 12 MG/DL (7-18); CALCIUM LEVEL 8.9 MG/DL (8.5-10.1); CARBON DIOXIDE LEVEL 27 MEQ/L (21-32); CHLORIDE LEVEL 106 MEQ/L (98-107); CK-MB VALUE MASS < 1.0 NG/ML (<3.6); CPK CREATINE PHOSPHOKINASE 99 U/L (39-308); GLOMERULAR FILTRATION RATE > 60.0 (>56); GLUCOSE, FASTING 102 MG/DL (70-100); MB/CK RELATIVE INDEX 1.01 (< OR =4); NT-PRO BNP 183 PG/ML (<125); POTASSIUM SERUM 4.2 MEQ/L (3.5-5.1); SODIUM LEVEL 137 MEQ/L (136-145); TOTAL PROTEIN 7.1 GM/DL (6.4-8.2); TROPONIN I < 0.02 NG/ML (< 0.10)
--- NOTE | 2019-12-27 04:43 | REPVR ---
PROCEDURE INFORMATION: Exam: XR Chest, 2 Views Exam date and time: 12/27/2019 4:33 AM Age: 54 years old Clinical indication: Other: Dyspnea/cough TECHNIQUE: Imaging protocol: XR of the chest Views: 2 views. COMPARISON: CR PORTABLE CHEST X-RAY 12/24/2019 9:27 PM FINDINGS: Lungs: A calcified granuloma on the left is again noted. There are no interval infiltrates. Pleural space: Unremarkable. No pleural effusion. No pneumothorax. Heart/Mediastinum: The heart and mediastinum are unchanged. Bones/joints: Unremarkable. IMPRESSION: Stable chest since 12/24/2019. No acute interval process is identified. Electronically signed by: Kenyon Barajas On 12/27/2019 04:43:34 AM
[2019-12-27 05:54] VITALS: BP 158/92
[2019-12-27 06:25] VITALS: O2SAT 97
--- NOTE | 2019-12-28 10:07 | ECGEPIP ---
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
== END 2019-12-27 06:15 | disposition left against medical advice (07) ==
LOC: M ED 03:03
DX: R07.9 Chest pain, unspecified (principal); Z53.9 Procedure and treatment not carried out, unspecified reason; I10 Essential (primary) hypertension; R91.8 Other nonspecific abnormal finding of lung field; G89.29 Other chronic pain; M54.9 Dorsalgia, unspecified; E55.9 Vitamin D deficiency, unspecified; D64.9 Anemia, unspecified; F33.9 Major depressive disorder, recurrent, unspecified; F17.200 Nicotine dependence, unspecified, uncomplicated; Z88.0 Allergy status to penicillin; Z79.899 Other long term (current) drug therapy

== ENCOUNTER 2019-12-29 04:25 | Emergency (ER) | payer BC, MEDICARE ==
[~2019-12-29] VITALS: Ht 175.3 cm; Wt 71.8 kg
[2019-12-29 04:26] VITALS: BP 175/100
== END 2019-12-31 04:52 | disposition left against medical advice (07) ==
LOC: M ED 12-31 04:25
DX: Z53.21 Procedure and treatment not carried out due to patient leaving prior to being seen by health care provider (principal)

== ENCOUNTER 2020-01-02 11:15 | Emergency (ER) | payer MEDICARE, BC ==
[~2020-01-02] VITALS: Ht 175.3 cm; Wt 72.7 kg
[2020-01-02] MEDS: NITROGLYCERIN 0.4 MG SUBL TABLET SL PRN ×3 (11:41→11:54)
[2020-01-02 11:44] LABS: BASO % 0.6 % (0.0-1.0); EOS # 0.1 10^3/uL (0.0-0.5); EOS % 0.9 % (0.0-3.0); HEMATOCRIT 41.7 % (42.0-52.0); HEMOGLOBIN 13.8 g/dl (13.5-17.5); LYMPH # 1.7 10^3/uL (1.5-5.0); LYMPH % 31.9 % (24.0-44.0); MEAN CORPUSCULAR HEMOGLOBIN 31.6 pg (27.0-33.0); MEAN CORPUSCULAR HGB CONC 33.1 g/dl (32.0-36.5); MEAN CORPUSCULAR VOLUME 95.4 fl (80.0-96.0); MONO # 0.3 10^3/uL (0.0-0.8); MONO % 5.7 % (0.0-5.0); NEUTROPHILS # 3.3 10^3/uL (1.5-8.5); NEUTROPHILS % 60.7 % (36.0-66.0); PLATELET COUNT, AUTOMATED 217 10^3/uL (150-450); RED BLOOD COUNT 4.37 10^6/uL (4.30-6.10); WHITE BLOOD COUNT 5.4 10^3/uL (4.0-10.0)
[2020-01-02] MEDS ORDERED: ASPIRIN 81 MG CHEW TABLET PO ONE (11:45)
[2020-01-02] MEDS ORDERED: ONDANSETRON 4MG/2ML VIAL IV ONE (11:45)
[2020-01-02] MEDS ORDERED: MORPHINE 4 MG/ML 1ML VIAL/SYRINGE (J2270) IV PRN (11:45)
[2020-01-02] MEDS ORDERED: CYMB1CAP5 PO (11:48)
[2020-01-02] MEDS ORDERED: SPIR1CAP INH (11:48)
[2020-01-02 11:54] VITALS: BP 111/76
[2020-01-02] MEDS ORDERED: ISOVUE-370 76% 100ML VIAL As Ordered ONE (11:57)
[2020-01-02 12:00] LABS: INR 0.93; PROTHROMBIN TIME 12.7 SECONDS (12.5-14.3)
[2020-01-02 12:01] LABS: PARTIAL THROMBOPLASTIN TIME 29.1 SECONDS (24.2-38.5)
--- NOTE | 2020-01-02 12:23 | REP ---
INDICATION: CHEST PAIN COMPARISON: 12/27/2019 TECHNIQUE: Portable AP view of the chest FINDINGS: The mediastinum and cardiac silhouette are stable and within normal limits for portable technique. The lung hensley demonstrate chronic interstitial changes and stable calcified granulomata without acute consolidation, effusion, or pneumothorax. Skeletal structures are intact. IMPRESSION: Chronic stable changes. No focal consolidation or effusion. <Electronically signed by Fausto Velasquez > 01/02/20 [id number]
[2020-01-02 12:31] LABS: ALT/SGPT 14 U/L (12-78); BILIRUBIN,DIRECT < 0.1 MG/DL (0.0-0.2); BILIRUBIN,TOTAL 0.2 MG/DL (0.2-1.0); CK-MB VALUE MASS < 1.0 NG/ML (<3.6); CPK CREATINE PHOSPHOKINASE 65 U/L (39-308); LIPASE 46 U/L (73-393); MB/CK RELATIVE INDEX 1.54 (< OR =4); THYROID STIMULATING HORMONE 0.798 uIU/ML (0.358-3.740); TOTAL PROTEIN 6.9 GM/DL (6.4-8.2); TROPONIN I < 0.02 NG/ML (< 0.10)
--- NOTE | 2020-01-02 12:31 | REP ---
INDICATION: cp COMPARISON: None. TECHNIQUE: Axial contrast enhanced images from the thoracic inlet to the upper abdomen using pulmonary embolus technique with multiplanar re-formations. 75 ml Isovue 370 intravenous contrast material administered without complication. This CT examination was performed using the following dose reduction techniques: Automated exposure control, adjustment of mA and/or kv according to the patient's size, and use of iterative reconstruction technique. FINDINGS: Satisfactory enhancement of the pulmonary vasculature is achieved and no filling defects are identified to suggest pulmonary embolus. Further evaluation of the mediastinum demonstrates normal thoracic aorta, heart and pericardium. The bilateral lung hensley demonstrate chronic biapical scarring, interstitial changes and evidence for prior granulomatous disease. No focal consolidation. No pleural effusion. No pneumothorax. Tracheobronchial tree is patent. No nodule or mass lesion is identified. No adenopathy noted. Surrounding musculoskeletal structures intact IMPRESSION: No evidence for pulmonary embolus. No acute mediastinal or pleural parenchymal process. Chronic interstitial changes and evidence for prior granulomatous disease. <Electronically signed by Fausto Velasquez > 01/02/20 [id number]
[2020-01-02] MEDS ORDERED: MAALOX 30 ML SUSP *UDC PO ONE (14:15)
[2020-01-02] MEDS ORDERED: GABAPENTIN 300 MG CAP PO ONE (15:00)
--- NOTE | 2020-01-02 15:04 | ECGEPIP ---
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
[2020-01-02] MEDS ORDERED: ASPI81CH33 PO (16:35)
[2020-01-02 16:45] VITALS: BP 136/86
--- NOTE | 2020-01-02 17:47 | ECGEPIP ---
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
--- NOTE | 2020-01-02 17:51 | ECGEPIP ---
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
== END 2020-01-02 16:59 | disposition home or self-care (01) ==
LOC: M ED 11:15
DX: R07.9 Chest pain, unspecified (principal); J84.89 Other specified interstitial pulmonary diseases; I10 Essential (primary) hypertension; E78.5 Hyperlipidemia, unspecified; J44.9 Chronic obstructive pulmonary disease, unspecified; K21.9 Gastro-esophageal reflux disease without esophagitis; F17.200 Nicotine dependence, unspecified, uncomplicated; Z88.0 Allergy status to penicillin; Z79.899 Other long term (current) drug therapy
CPT/HCPCS: 71045; 71275; 80047; 80076; 82550; 82553; 83690; 84439; 84443; 84484; 85025; 85610; 85730; 93005; 93041; 94760; 96374; 96375; 99285; J2270; J2405; Q9967

== ENCOUNTER 2020-01-04 13:55 | Emergency (ER) | payer BC, MEDICARE ==
[~2020-01-04] VITALS: Ht 170.2 cm; Wt 71.8 kg
[~2020-01-04 13:55] MED LIST changes: +ASPI81CH33 PO
[2020-01-04] MEDS ORDERED: ASPIRIN 81 MG CHEW TABLET PO ONE (14:15)
[2020-01-04] MEDS ORDERED: AMIT25TA PO (14:32)
[2020-01-04] MEDS ORDERED: ASPI81CH33 PO (14:32)
[2020-01-04] MEDS ORDERED: SPIR12.9 INH (14:32)
[2020-01-04] MEDS ORDERED: ACET-908 PO (14:32)
--- NOTE | 2020-01-04 14:34 | REP ---
INDICATION: CHEST PAIN. COMPARISON: 01/02/2020. TECHNIQUE: Single frontal portable view of the chest is performed. FINDINGS: Calcified granulomas again seen in the left lung base. There is no acute infiltrate or pulmonary edema. The heart is normal in size. The mediastinal silhouette is unchanged. IMPRESSION: No acute infiltrate. <Electronically signed by Scott Cornejo > 01/04/20 1402
[2020-01-04 14:51] LABS: BASO % 0.5 % (0.0-1.0); EOS # 0.2 10^3/uL (0.0-0.5); EOS % 2.8 % (0.0-3.0); HEMATOCRIT 39.6 % (42.0-52.0); HEMOGLOBIN 13.3 g/dl (13.5-17.5); LYMPH # 1.6 10^3/uL (1.5-5.0); LYMPH % 27.2 % (24.0-44.0); MEAN CORPUSCULAR HEMOGLOBIN 31.8 pg (27.0-33.0); MEAN CORPUSCULAR HGB CONC 33.6 g/dl (32.0-36.5); MEAN CORPUSCULAR VOLUME 94.7 fl (80.0-96.0); MONO # 0.3 10^3/uL (0.0-0.8); MONO % 4.7 % (0.0-5.0); NEUTROPHILS # 3.9 10^3/uL (1.5-8.5); NEUTROPHILS % 64.5 % (36.0-66.0); PLATELET COUNT, AUTOMATED 208 10^3/uL (150-450); RED BLOOD COUNT 4.18 10^6/uL (4.30-6.10)
[2020-01-04 15:02] LABS: INR 0.94; PARTIAL THROMBOPLASTIN TIME 29.4 SECONDS (24.2-38.5); PROTHROMBIN TIME 12.8 SECONDS (12.5-14.3)
--- NOTE | 2020-01-04 15:25 | REP ---
INDICATION: calf pain r/o DVT COMPARISON: None. TECHNIQUE: Real time compression and duplex Doppler interrogation of the bilateral lower extremity deep venous system is performed. FINDINGS: Bilaterally, the common femoral, superficial femoral and popliteal veins are fully compressible with transducer pressure and demonstrate normal spontaneous and phasic flow, without evidence of deep venous thrombosis. IMPRESSION: No evidence of deep venous thrombosis of the bilateral lower extremity femoral popliteal venous system. <Electronically signed by Scott Cornejo > 01/04/20 [id number]
[2020-01-04 15:26] LABS: ALBUMIN 3.6 GM/DL (3.2-5.2); ALT/SGPT 15 U/L (12-78); BILIRUBIN,DIRECT < 0.1 MG/DL (0.0-0.2); BILIRUBIN,TOTAL 0.2 MG/DL (0.2-1.0); BLOOD UREA NITROGEN 13 MG/DL (7-18); CALCIUM LEVEL 8.5 MG/DL (8.5-10.1); CARBON DIOXIDE LEVEL 26 MEQ/L (21-32); CHLORIDE LEVEL 106 MEQ/L (98-107); CK-MB VALUE MASS < 1.0 NG/ML (<3.6); CPK CREATINE PHOSPHOKINASE 69 U/L (39-308); CREATININE FOR GFR 1.02 MG/DL (0.70-1.30); FREE T4 1.13 NG/DL (0.76-1.46); GLOMERULAR FILTRATION RATE > 60.0 (>56); GLUCOSE, FASTING 92 MG/DL (70-100); LIPASE 51 U/L (73-393); MB/CK RELATIVE INDEX 1.45 (< OR =4); POTASSIUM SERUM 4.8 MEQ/L (3.5-5.1); SODIUM LEVEL 136 MEQ/L (136-145); THYROID STIMULATING HORMONE 0.992 uIU/ML (0.358-3.740); TOTAL PROTEIN 6.3 GM/DL (6.4-8.2); TROPONIN I < 0.02 NG/ML (< 0.10)
[2020-01-04] MEDS ORDERED: ISOVUE-370 76% 100ML VIAL As Ordered ONE (15:49)
[2020-01-04 16:15] VITALS: BP 136/94
--- NOTE | 2020-01-04 16:17 | REP ---
INDICATION: chest pain syncope COMPARISON: 01/02/2020 TECHNIQUE: Axial contrast enhanced images from the thoracic inlet to the upper abdomen using pulmonary embolus technique with multiplanar re-formations. 75 ml Isovue 370 intravenous contrast material administered without complication. This CT examination was performed using the following dose reduction techniques: Automated exposure control, adjustment of mA and/or kv according to the patient's size, and use of iterative reconstruction technique. FINDINGS: Satisfactory enhancement of the pulmonary vasculature is achieved and no filling defects are identified to suggest pulmonary embolus. Further evaluation of the mediastinum demonstrates normal thoracic aorta, heart and pericardium. The bilateral lung hensley demonstrate stable chronic changes along with evidence for prior granulomatous disease including calcified lymph nodes and calcified granulomata. No focal consolidation or obvious acute interstitial process. No pleural effusion. No pneumothorax. Tracheobronchial tree is patent. No suspicious nodule or mass lesion is identified. No adenopathy noted. Surrounding musculoskeletal structures intact IMPRESSION: No evidence for pulmonary embolus. No acute mediastinal or pleural parenchymal process. Evidence for chronic changes and prior granulomatous disease. <Electronically signed by Fausto Velasquez > 01/04/20 [id number]
--- NOTE | 2020-01-04 22:08 | ECGEPIP ---
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
== END 2020-01-04 17:00 | disposition left against medical advice (07) ==
LOC: M ED 13:55
DX: R07.9 Chest pain, unspecified (principal); R55 Syncope and collapse; R42 Dizziness and giddiness; M79.662 Pain in left lower leg; R11.2 Nausea with vomiting, unspecified; Z53.20 Procedure and treatment not carried out because of patient's decision for unspecified reasons; I10 Essential (primary) hypertension; G89.29 Other chronic pain; M54.5 Low back pain; D64.9 Anemia, unspecified; R91.8 Other nonspecific abnormal finding of lung field; F33.9 Major depressive disorder, recurrent, unspecified; F17.200 Nicotine dependence, unspecified, uncomplicated; Z88.0 Allergy status to penicillin; Z79.899 Other long term (current) drug therapy
CPT/HCPCS: 36415; 71045; 71275; 80048; 80076; 82550; 82553; 83690; 84439; 84443; 84484; 85025; 85610; 85730; 93005; 93041; 93970; 94760; 99285; Q9967

== ENCOUNTER 2020-01-07 00:27 | Emergency (ER) | payer BC, MEDICARE ==
[~2020-01-07] VITALS: Ht 170.2 cm; Wt 71.8 kg
[~2020-01-07 00:27] MED LIST changes: +ACET-908 PO; +SPIR12.9 INH
[2020-01-07] MEDS ORDERED: NITROGLYCERIN 0.4 MG SUBL TABLET SL STA (00:56)
[2020-01-07 01:00] VITALS: BP 145/91
[2020-01-07] MEDS ORDERED: LABETALOL 200 MG TAB PO ONE (01:00)
[2020-01-07] MEDS ORDERED: ASPIRIN 81 MG CHEW TABLET PO ONE (01:00)
[2020-01-07 01:06] LABS: BASO % 0.5 % (0.0-1.0); EOS # 0.2 10^3/uL (0.0-0.5); EOS % 1.8 % (0.0-3.0); HEMATOCRIT 40.3 % (42.0-52.0); HEMOGLOBIN 13.4 g/dl (13.5-17.5); LYMPH # 2.4 10^3/uL (1.5-5.0); LYMPH % 28.3 % (24.0-44.0); MEAN CORPUSCULAR HEMOGLOBIN 31.5 pg (27.0-33.0); MEAN CORPUSCULAR HGB CONC 33.3 g/dl (32.0-36.5); MEAN CORPUSCULAR VOLUME 94.8 fl (80.0-96.0); MONO # 0.4 10^3/uL (0.0-0.8); MONO % 5.2 % (0.0-5.0); NEUTROPHILS # 5.4 10^3/uL (1.5-8.5); NEUTROPHILS % 63.8 % (36.0-66.0); PLATELET COUNT, AUTOMATED 215 10^3/uL (150-450); RED BLOOD COUNT 4.25 10^6/uL (4.30-6.10); WHITE BLOOD COUNT 8.5 10^3/uL (4.0-10.0)
[2020-01-07 01:34] LABS: BLOOD UREA NITROGEN 11 MG/DL (7-18); CALCIUM LEVEL 8.8 MG/DL (8.5-10.1); CARBON DIOXIDE LEVEL 28 MEQ/L (21-32); CHLORIDE LEVEL 103 MEQ/L (98-107); CK-MB VALUE MASS < 1.0 NG/ML (<3.6); CPK CREATINE PHOSPHOKINASE 68 U/L (39-308); GLOMERULAR FILTRATION RATE > 60.0 (>56); GLUCOSE, FASTING 105 MG/DL (70-100); MB/CK RELATIVE INDEX 1.47 (< OR =4); POTASSIUM SERUM 4.1 MEQ/L (3.5-5.1); SODIUM LEVEL 138 MEQ/L (136-145); TROPONIN I < 0.02 NG/ML (< 0.10)
--- NOTE | 2020-01-07 01:36 | REPVR ---
PROCEDURE INFORMATION: Exam: XR Chest, 1 View Exam date and time: 01/07/2020 1:16 AM Age: 54 years old Clinical indication: Other: Chest pain TECHNIQUE: Imaging protocol: XR of the chest Views: 1 view. COMPARISON: MO PORTABLE CHEST X-RAY 01/04/2020 2:27 PM FINDINGS: Lungs: Calcified granuloma in the left lung. Coarse nonspecific bilateral perihilar reticulonodular opacities. Pleural space: Unremarkable. No pleural effusion. No pneumothorax. Heart/Mediastinum: Unremarkable. No cardiomegaly. Bones/joints: Unremarkable. IMPRESSION: No significant interval change. Electronically signed by: Quintin Mcneill On 01/07/2020 01:36:12 AM
[2020-01-07] MEDS ORDERED: FAMOTIDINE IV BAG 20 MG in IV 1 EA IV ONE (02:00)
[2020-01-07] MEDS ORDERED: AMLO1TAB25 PO (02:02)
[2020-01-07 02:21] VITALS: BP 144/78
--- NOTE | 2020-01-07 16:16 | ECGEPIP ---
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
== END 2020-01-07 02:25 | disposition home or self-care (01) ==
LOC: M ED 00:27
DX: R07.89 Other chest pain (principal); I10 Essential (primary) hypertension; K21.9 Gastro-esophageal reflux disease without esophagitis; F17.200 Nicotine dependence, unspecified, uncomplicated; Z88.0 Allergy status to penicillin; Z88.8 Allergy status to other drugs, medicaments and biological substances; Z79.82 Long term (current) use of aspirin; Z79.899 Other long term (current) drug therapy

== ENCOUNTER 2020-01-10 12:48 | Emergency (ER) | payer BC, MEDICARE ==
[~2020-01-10] VITALS: Ht 170.2 cm; Wt 71.8 kg
[~2020-01-10 12:48] MED LIST changes: +AMLO1TAB25 PO
[2020-01-10 13:25] LABS: BASO % 0.6 % (0.0-1.0); EOS # 0.1 10^3/uL (0.0-0.5); EOS % 2.9 % (0.0-3.0); LYMPH # 1.6 10^3/uL (1.5-5.0); LYMPH % 33.6 % (24.0-44.0); MEAN CORPUSCULAR HEMOGLOBIN 32.1 pg (27.0-33.0); MEAN CORPUSCULAR HGB CONC 33.3 g/dl (32.0-36.5); MEAN CORPUSCULAR VOLUME 96.3 fl (80.0-96.0); MONO # 0.3 10^3/uL (0.0-0.8); MONO % 6.2 % (0.0-5.0); NEUTROPHILS # 2.7 10^3/uL (1.5-8.5); NEUTROPHILS % 56.5 % (36.0-66.0); PLATELET COUNT, AUTOMATED 229 10^3/uL (150-450); RED BLOOD COUNT 4.36 10^6/uL (4.30-6.10); WHITE BLOOD COUNT 4.8 10^3/uL (4.0-10.0)
--- NOTE | 2020-01-10 13:30 | REP ---
INDICATION: CHEST PAIN COMPARISON: 01/07/2020 TECHNIQUE: Portable AP view of the chest FINDINGS: The mediastinum and cardiac silhouette are stable and within normal limits for portable technique. The lung hensley demonstrate chronic changes without acute consolidation, effusion, or pneumothorax. Skeletal structures are intact. IMPRESSION: Chronic changes. No acute cardiopulmonary process appreciated. <Electronically signed by Fausto Velasquez > 01/10/20 [id number]
[2020-01-10 13:53] LABS: ALBUMIN 3.8 GM/DL (3.2-5.2); ALT/SGPT 17 U/L (12-78); BILIRUBIN,DIRECT < 0.1 MG/DL (0.0-0.2); BILIRUBIN,TOTAL 0.2 MG/DL (0.2-1.0); BLOOD UREA NITROGEN 12 MG/DL (7-18); CALCIUM LEVEL 9.1 MG/DL (8.5-10.1); CARBON DIOXIDE LEVEL 31 MEQ/L (21-32); CHLORIDE LEVEL 103 MEQ/L (98-107); CK-MB VALUE MASS < 1.0 NG/ML (<3.6); CPK CREATINE PHOSPHOKINASE 58 U/L (39-308); GLOMERULAR FILTRATION RATE > 60.0 (>56); GLUCOSE, FASTING 86 MG/DL (70-100); LIPASE 49 U/L (73-393); MB/CK RELATIVE INDEX 1.72 (< OR =4); POTASSIUM SERUM 4.6 MEQ/L (3.5-5.1); SODIUM LEVEL 136 MEQ/L (136-145); TOTAL PROTEIN 7.1 GM/DL (6.4-8.2); TROPONIN I < 0.02 NG/ML (< 0.10)
[2020-01-10 14:38] VITALS: BP 159/96
--- NOTE | 2020-01-10 20:41 | ECGEPIP ---
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
== END 2020-01-10 14:39 | disposition home or self-care (01) ==
LOC: M ED 12:48
DX: R07.89 Other chest pain (principal); I11.0 Hypertensive heart disease with heart failure; K21.9 Gastro-esophageal reflux disease without esophagitis; F33.9 Major depressive disorder, recurrent, unspecified; F17.200 Nicotine dependence, unspecified, uncomplicated; Z88.0 Allergy status to penicillin; Z88.8 Allergy status to other drugs, medicaments and biological substances; Z79.899 Other long term (current) drug therapy

== ENCOUNTER 2020-01-16 19:51 | Emergency (ER) | payer BC, MEDICARE ==
[~2020-01-16] VITALS: Ht 175.3 cm; Wt 71.4 kg
[~2020-01-16 19:51] MED LIST changes: -AMIT25TA PO; +AMIT25TA17 PO; +GABA-282 PO; -GABA-843 PO
[2020-01-16 20:51] LABS: BASO % 0.6 % (0.0-1.0); EOS # 0.1 10^3/uL (0.0-0.5); EOS % 1.7 % (0.0-3.0); HEMATOCRIT 42.6 % (42.0-52.0); HEMOGLOBIN 14.4 g/dl (13.5-17.5); LYMPH # 1.9 10^3/uL (1.5-5.0); LYMPH % 28.8 % (24.0-44.0); MEAN CORPUSCULAR HEMOGLOBIN 31.7 pg (27.0-33.0); MEAN CORPUSCULAR HGB CONC 33.8 g/dl (32.0-36.5); MEAN CORPUSCULAR VOLUME 93.8 fl (80.0-96.0); MONO # 0.5 10^3/uL (0.0-0.8); MONO % 7.4 % (0.0-5.0); NEUTROPHILS % 61.3 % (36.0-66.0); PLATELET COUNT, AUTOMATED 243 10^3/uL (150-450); RED BLOOD COUNT 4.54 10^6/uL (4.30-6.10); WHITE BLOOD COUNT 6.5 10^3/uL (4.0-10.0)
[2020-01-16 20:55] LABS: INR 0.95; PROTHROMBIN TIME 12.9 SECONDS (12.5-14.3)
[2020-01-16 20:57] LABS: D-DIMER QUANT 1860.16 ng/ml (<500)
[2020-01-16 21:09] LABS: ALT/SGPT 23 U/L (12-78); BILIRUBIN,DIRECT 0.1 MG/DL (0.0-0.2); BILIRUBIN,TOTAL 0.4 MG/DL (0.2-1.0); BLOOD UREA NITROGEN 16 MG/DL (7-18); CALCIUM LEVEL 8.7 MG/DL (8.5-10.1); CARBON DIOXIDE LEVEL 24 MEQ/L (21-32); CHLORIDE LEVEL 106 MEQ/L (98-107); CK-MB VALUE MASS < 1.0 NG/ML (<3.6); CPK CREATINE PHOSPHOKINASE 87 U/L (39-308); CREATININE FOR GFR 0.89 MG/DL (0.70-1.30); GLOMERULAR FILTRATION RATE > 60.0 (>56); GLUCOSE, FASTING 116 MG/DL (70-100); MB/CK RELATIVE INDEX 1.15 (< OR =4); NT-PRO BNP 85 PG/ML (<125); POTASSIUM SERUM 3.6 MEQ/L (3.5-5.1); SODIUM LEVEL 138 MEQ/L (136-145); TOTAL PROTEIN 7.2 GM/DL (6.4-8.2); TROPONIN I < 0.02 NG/ML (< 0.10)
[2020-01-16] MEDS ORDERED: ISOVUE-370 76% 100ML VIAL As Ordered ONE (21:13)
--- NOTE | 2020-01-16 21:39 | REPVR ---
PROCEDURE INFORMATION: Exam: XR Chest, 2 Views Exam date and time: 01/16/2020 9:03 PM Age: 54 years old Clinical indication: Dyspnea and shortness of breath; Additional info: cough TECHNIQUE: Imaging protocol: XR of the chest Views: 2 views. COMPARISON: CR PORTABLE CHEST X-RAY 01/10/2020 1:02 PM FINDINGS: Lungs: There is a calcified granuloma in the left lower lobe, which is unchanged compared to the prior chest x-ray on 01/10/2020. No lung consolidation or pulmonary edema is noted. Pleural space: Unremarkable. No pleural effusion or pneumothorax is identified. Heart/Mediastinum: Unremarkable. No cardiomegaly. Bones/joints: Unremarkable. IMPRESSION: No radiographic evidence for an acute cardiopulmonary process. Electronically signed by: Lokesh Reed On 01/16/2020 21:39:51 PM
--- NOTE | 2020-01-16 22:07 | REPVR ---
PROCEDURE INFORMATION: Exam: CT Angiography Chest With Contrast Exam date and time: 01/16/2020 9:33 PM Age: 54 years old Clinical indication: Shortness of breath TECHNIQUE: Imaging protocol: Computed tomographic angiography of the chest with intravenous contrast. 3D rendering (Not supervised by radiologist): MIP and/or 3D reconstructed images were created by the technologist. Radiation optimization: All CT scans at this facility use at least one of these dose optimization techniques: automated exposure control; mA and/or kV adjustment per patient size (includes targeted exams where dose is matched to clinical indication); or iterative reconstruction. Contrast material: ISOVUE 370; Contrast volume: 75 ml; Contrast route: INTRAVENOUS (IV); COMPARISON: CT ANGIO CHEST 01/04/2020 3:51 PM FINDINGS: Pulmonary arteries: No pulmonary embolism. Aorta: The thoracic aorta is intact and patent. There is no thoracic aortic aneurysm, pseudoaneurysm, penetrating atherosclerotic ulcer, intramural hematoma, or dissection. Great vessels off aortic arch: The brachiocephalic artery, imaged proximal portions of the common carotid arteries, imaged proximal portions of the vertebral arteries, and subclavian arteries are intact. No stenosis or occlusion of these vessels is noted. Thyroid: There is a 3 mm low-attenuation nodule in the midpole of the right lobe of the thyroid gland, which is stable compared to the prior CTA chest on 01/04/2020. Tracheobronchial tree: Intact and patent. Lungs: There are centrilobular and paraseptal emphysematous changes, predominantly in the lung apices. There is a 9 mm calcified granuloma in the left lower lobe and smaller calcified granulomas in the right lower lobe, which are stable compared to the prior CTA chest on 01/04/2020. There is mild dependent atelectasis in both lower lobes. No lung consolidation, ground-glass opacification, pulmonary infarct, or mass is noted. Pleural space: Normal. No pneumothorax or pleural effusion. Heart: No cardiomegaly. No pericardial effusion. The ratio of the diameter of the right ventricle to the diameter of the left ventricle measures less than 1, which is within normal limits and there is no evidence for a right ventricular strain. Coronary artery calcifications are present. Mediastinal space: No mediastinal fluid collection or pneumomediastinum is noted. Lymph nodes: No enlarged lymph nodes. Calcified left hilar lymph nodes are present, which represent calcified granulomas that are stable compared to the prior CTA chest on 01/04/2020. Spleen: Normal. No splenomegaly is noted. Adrenals: Normal. No adrenal mass is noted. Bones/joints: There is no fracture or dislocation. No suspicious osteolytic or osteoblastic lesion. There are Schmorl's nodes at several levels in the thoracic spine. There is a mild levoscoliosis of the thoracic spine. Soft tissues: Unremarkable. No soft tissue fluid collection. IMPRESSION: 1. No acute findings in the chest. No pulmonary embolism. 2. 3 mm low-attenuation nodule in the midpole of the right lobe of the thyroid gland, which is stable compared to the prior CTA chest on 01/04/2020. See management guidelines below. COMMENTS: Consistent with the [place] [employer]'s Incidental Findings Committee white paper (J Am Supriya Radiol 2015): In patients aged 35 years and older with an incidental thyroid nodule equal to or greater than 1.[address], MRI or extrathyroidal US, further evaluation with dedicated thyroid US is recommended for patients with normal life expectancy and without comorbidities. For smaller nodules without suspicious features, no further evaluation or follow up is recommended. Electronically signed by: Lokesh Reed On 01/16/2020 22:07:32 PM
[2020-01-16 22:21] VITALS: O2SAT 97
[2020-01-16 23:15] VITALS: BP 135/105
--- NOTE | 2020-01-17 06:32 | ED PDOC ---
Post-Departure Follow-Up shavon lugo faxed fomral report of cta chest for fu Юлия Green MD Jan 17, 2020 06:32
--- NOTE | 2020-01-17 06:43 | ECGEPIP ---
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
== END 2020-01-16 23:25 | disposition left against medical advice (07) ==
LOC: M ED 19:51
DX: R91.1 Solitary pulmonary nodule (principal); E04.1 Nontoxic single thyroid nodule; R00.0 Tachycardia, unspecified; F17.200 Nicotine dependence, unspecified, uncomplicated; I10 Essential (primary) hypertension; F32.9 Major depressive disorder, single episode, unspecified; Z53.20 Procedure and treatment not carried out because of patient's decision for unspecified reasons; Z88.0 Allergy status to penicillin; Z88.8 Allergy status to other drugs, medicaments and biological substances
CPT/HCPCS: 36415; 71046; 71275; 80048; 80076; 82550; 82553; 83880; 84443; 84484; 85025; 85379; 85610; 93005; 93041; 94760; 99285; Q9967

== ENCOUNTER 2020-01-17 06:53 | Emergency (ER) | payer MEDICARE ==
[~2020-01-17] VITALS: Ht 175.3 cm; Wt 72.3 kg
[~2020-01-17 06:53] MED LIST changes: +AMIT25TA PO; -AMIT25TA17 PO; -GABA-282 PO; +GABA-843 PO
[2020-01-17] MEDS ORDERED: LORazepam 1 MG TAB PO STA (07:30)
[2020-01-17 08:25] LABS: BLOOD UREA NITROGEN 12 MG/DL (7-18); CALCIUM LEVEL 9.2 MG/DL (8.5-10.1); CARBON DIOXIDE LEVEL 28 MEQ/L (21-32); CHLORIDE LEVEL 104 MEQ/L (98-107); CK-MB VALUE MASS 1.8 NG/ML (<3.6); CPK CREATINE PHOSPHOKINASE 184 U/L (39-308); CREATININE FOR GFR 1.03 MG/DL (0.70-1.30); FREE T4 1.17 NG/DL (0.76-1.46); GLOMERULAR FILTRATION RATE > 60.0 (>56); GLUCOSE, FASTING 106 MG/DL (70-100); MB/CK RELATIVE INDEX 0.98 (< OR =4); NT-PRO BNP 134 PG/ML (<125); POTASSIUM SERUM 3.9 MEQ/L (3.5-5.1); SODIUM LEVEL 137 MEQ/L (136-145); TROPONIN I < 0.02 NG/ML (< 0.10)
[2020-01-17 10:00] VITALS: BP 140/90
--- NOTE | 2020-01-17 19:32 | ECGEPIP ---
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
== END 2020-01-17 10:07 | disposition home or self-care (01) ==
LOC: M ED 06:53
DX: F41.9 Anxiety disorder, unspecified (principal); R06.00 Dyspnea, unspecified; R07.9 Chest pain, unspecified; I10 Essential (primary) hypertension; J44.9 Chronic obstructive pulmonary disease, unspecified; M54.9 Dorsalgia, unspecified; Z88.0 Allergy status to penicillin; Z88.8 Allergy status to other drugs, medicaments and biological substances; Z79.899 Other long term (current) drug therapy

== ENCOUNTER 2020-01-19 18:28 | Emergency (ER) | payer BC, MEDICARE ==
[~2020-01-19] VITALS: Ht 175.3 cm; Wt 71.8 kg
[~2020-01-19 18:28] MED LIST changes: -AMIT25TA PO; +AMIT25TA17 PO; +GABA-282 PO; -GABA-843 PO
[2020-01-19 19:58] LABS: HEMATOCRIT 36.6 % (42.0-52.0); HEMOGLOBIN 12.5 g/dl (13.5-17.5); MEAN CORPUSCULAR HEMOGLOBIN 32.2 pg (27.0-33.0); MEAN CORPUSCULAR HGB CONC 34.2 g/dl (32.0-36.5); MEAN CORPUSCULAR VOLUME 94.3 fl (80.0-96.0); PLATELET COUNT, AUTOMATED 196 10^3/uL (150-450); RED BLOOD COUNT 3.88 10^6/uL (4.30-6.10); WHITE BLOOD COUNT 5.8 10^3/uL (4.0-10.0)
[2020-01-19 20:28] LABS: ACETAMINOPHEN LEVEL < 2.0 UG/ML (10.0-30.0); ALBUMIN 3.8 GM/DL (3.2-5.2); ALT/SGPT 25 U/L (12-78); BILIRUBIN,DIRECT < 0.1 MG/DL (0.0-0.2); BILIRUBIN,TOTAL 0.3 MG/DL (0.2-1.0); BLOOD UREA NITROGEN 20 MG/DL (7-18); CALCIUM LEVEL 8.4 MG/DL (8.5-10.1); CARBON DIOXIDE LEVEL 27 MEQ/L (21-32); CHLORIDE LEVEL 108 MEQ/L (98-107); CK-MB VALUE MASS 1.8 NG/ML (<3.6); CPK CREATINE PHOSPHOKINASE 274 U/L (39-308); CREATININE FOR GFR 0.91 MG/DL (0.70-1.30); ETHYL ALCOHOL (ETHANOL) 0.006 % (0.000-0.010); GLOMERULAR FILTRATION RATE > 60.0 (>56); GLUCOSE, FASTING 106 MG/DL (70-100); MB/CK RELATIVE INDEX 0.66 (< OR =4); POTASSIUM SERUM 3.8 MEQ/L (3.5-5.1); SALICYLATE LEVEL 3.7 MG/DL (5.0-30.0); SODIUM LEVEL 139 MEQ/L (136-145); TOTAL PROTEIN 6.5 GM/DL (6.4-8.2); TROPONIN I < 0.02 NG/ML (< 0.10)
--- NOTE | 2020-01-19 20:52 | REPVR ---
PROCEDURE INFORMATION: Exam: XR Chest, 2 Views Exam date and time: 01/19/2020 8:36 PM Age: 54 years old Clinical indication: Shortness of breath; Additional info: SOB TECHNIQUE: Imaging protocol: XR of the chest Views: 2 views. COMPARISON: CR Chest, 2 view PA, Lat 01/16/2020 8:50 PM FINDINGS: Lungs: Granuloma lower lung zone, stable in comparison to prior studies. COPD. Pleural space: Unremarkable. No pleural effusion. No pneumothorax. Heart/Mediastinum: Unremarkable. No cardiomegaly. Bones/joints: The spine demonstrates mild degenerative changes. IMPRESSION: 1. COPD. 2. No acute findings. Electronically signed by: Nitin Perales On 01/19/2020 20:51:59 PM
[2020-01-19 21:15] VITALS: BP 142/95
--- NOTE | 2020-01-20 08:41 | ECGEPIP ---
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
== END 2020-01-19 21:40 | disposition home or self-care (01) ==
LOC: M ED 18:28
DX: F41.0 Panic disorder [episodic paroxysmal anxiety] (principal); J44.9 Chronic obstructive pulmonary disease, unspecified; I10 Essential (primary) hypertension; G89.29 Other chronic pain; M54.9 Dorsalgia, unspecified; D64.9 Anemia, unspecified; F33.9 Major depressive disorder, recurrent, unspecified; Z88.0 Allergy status to penicillin; Z88.8 Allergy status to other drugs, medicaments and biological substances; Z79.899 Other long term (current) drug therapy; F17.200 Nicotine dependence, unspecified, uncomplicated
CPT/HCPCS: 36415; 71046; 80048; 80076; 82550; 82553; 84443; 84484; 85027; 93005; 93041; 94760; 99285; G0480

== ENCOUNTER 2020-02-29 16:15 | Inpatient (IN) | payer BC, MEDICARE ==
[~2020-02-29] VITALS: Ht 172.7 cm; Wt 65.0 kg
--- OUTSIDE RECORDS SUMMARY | 2020-02-29 16:26 | CCD ---
Author Author [facility] Organization [facility] Address Unknown Phone Unavailable Care Team Providers [facility] Name Role Phone Brigid Poe Unavailable PROBLEMS Type Condition ICD9-CM Code UDC32-GI Code Onset Dates Condition S tatus SNOMED Code Notes Problem Major depressive disorder wi th single episode, remission status unspecified F32.9 Active 66967783 Problem Vitamin D deficiency E55.9 Active 21873335 Problem Cigarette nicotine dependence without complication F17.210 Active 16561768 Problem Sacroiliac joint pain M53.3 Active 551841872 Problem Intervertebral disc disorders with radiculopathy , lumbosacral region M51.17 Active 2980524 Problem Chronic prescription opiate use Z79.891 Active 681549063 Problem Lumbar radicular pain M54.16 Active 80488488 Problem Intervertebral disc disorders with radiculopathy , lumbar region M51.16 Active 712302051260368 Problem Abnormal weight loss R63.4 Active 144398207 Problem Myalgia, other site M79.18 Active 05072196 Problem Multiple lung nodules on CT R91.8 Active 4452 27790 Problem Hyperlipidemia E78.5 Active 66540027 Problem Macrocytosis D75.89 Active 386349100 Problem Myalgia M79.1 Active 98573860 Problem Intervertebral disc disorder with radiculopathy of lumbosacral region M51.17 Active 36294622 Problem Neuropathy G62.9 Active 093856320 Problem Spondylosis of lumbosacral 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 athy or radiculopathy M47.817 Active 94609215 Problem Pain in left shoulder M25.512 Active 57301631 Problem Essential hypertension I10 Active 06936043 Problem Myalgia M79.10 Active 68819310 Problem Chronic prescription opiate use Z79.899 Active 123837666 Problem Pain in right shoulder M25.511 Active 48136578 Problem Current moderate episode of major depressive disorder without prior episode F32.1 Active 38037761 Problem Chronic obstructive pulmonary disease, unspecified COPD ty pe J44.9 Active 59619378 Problem Pure hypercholesterolemia E78.00 Active 821288 004 Problem Anxiety F41.9 Active 57864457 Problem Other chronic pain G89.29 Active 51215202 Problem Panic disorder F41.0 Active 001644424 Problem Intervertebral disc disorder with radiculopathy of lumbar region M51.16 Active 56772167 Problem Other spondylosis, cervical region M47.892 Activ e 8113053 Problem Sacroiliitis M46.1 Active 77769719 Problem Low back pain M54.5 Active 232468740 Problem Bilateral sacroiliitis M46.1 Active 167752455 53508495 Problem Tremor of both hands R25.1 Active 910969230 ALLERGIES Allergen (clinical drug ingredient) Drug/Non Drug Allergy do cumented on EMR Reaction Allergy Type Onset Date Status duloxetine Cymbalta([facility] Code:[address]90-2014-42) chest pain Drug Allergy Active dexamethasone Dexamethasone(ND Code:[address]-68) erythema Drug A llergy Active Penicillin (For Allergies Use Only) told as a child to not take Drug Allergy Active ENCOUNTERS from 1965 to 2020-01-27 Encounter Location Date Provider Diagnosis [facility] [address] [place] [phone] Jan, Brigid Poe Intervertebral disc disorders with radic ulopathy, lumbar region M51.16 IMMUNIZATIONS Vaccine Route Administration Date Status Influenza (18 yrs & older) Flublok IM Intramuscular Jan 15, 2020 Administered Influenza (18 yrs & older) Flublok IM Intramuscular Dec 11, 2018 Administered Influenza (18 yrs & older) Flublok IM Intramuscular Dec 10, 2017 Administered Pneumococcal Adult 0.5mL (Pneumovax 23) IM Intramuscular Mar 08, 2017 Administered Influenza (6mo & up) Fluzone IM Intramuscular Mar 08, 2017 Ad ministered Influenza (6mo & up) Fluzone IM Intramuscular Nov 23, 2015 Ad ministered SOCIAL HISTORY Tobacco Use: Social History Observation Description Date Details (start date - stop date) Current Smoker Sex Assigned At : Social History Observation Description Sex Assigned At Unknown Education: Question Answer Notes Level of Education: College Language: Question Answer Notes Languages spoken: Vietnamese Episcopal: Question Answer Notes [employer] 21 [employer] Sexual Hx: Question Answer Notes Had sex in the last 12 months (vaginal, oral, or anal)? No Have you ever had an STD? No Alcohol Screening: Question Answer Notes Did you have a drink containing alcohol in the past year? No Points 0 Interpretation Negative Tobacco Use: Question Answer Notes Are you a: current smoker Patient counseled on the dangers of tobacco use and urged to quit: 12/10/2019 How many cigarettes a day do you smoke? 6-10 Are you interested in quitting? Not ready to quit Counseled the patient on smoking effects, education provided 12/24/2019 REASON FOR REFERRAL No Information VITAL SIGNS No information MEDICATIONS Medication SIG (Take, Route, Frequency, Duration) Notes Start Da te End Date Status Amlodipine Besylate-Valsartan 5-160 MG 1 tablet Orally Once a day Active Gabapentin 300 MG 1 capsuleam, 1 cap noon, 2 caps pm Orally as direct ed Active Sucralfate 1 GM 1 tablet on an empty stomach Orally before each meal for 30 Days Dec, Active Aspirin 81 MG 1 tablet Orally Once a day for 90 days Active Omeprazole 40 MG 1 capsule 30 minutes before morning meal Orally Once a day for 30 day(s) Dec, Active Spiriva Respimat 1.25 MCG/ACT 2 puffs Inhalation Once a day for 30 days Dec, Active Percocet 10-325 MG 1 tablet as needed Orally ev nguyen 6 hrs MDD4 #90 TAB SHOULD LAST 30 DAYS for 30 Days Jan, Active Diazepam 2 MG 1 tab am, 1/2 tab noon, 1 ta b pm Orally as directed MDD = 2 1/2 for 30 days Oct, Active Morphine Sulfate 15 MG 1 tablet as needed Orally q8h prn mdd3 fo r 30 Days Jan, Active Atorvastatin Calcium 40 MG 1 tablet Orally Once a day for 90 day s Mar, Active Morphine Sulfate ER 15 MG 1 tablet Orally q8h TID MDD3 for 30 Da ys Jan, Active Multivitamins OTC 1 tablet Orally once a day Active Propranolol HCl 20 MG 1 tablet Orally tid Active Vitamin D (Ergocalciferol) 14154 UNIT 1 capsule Orally once a week (mondays) for 30 Days Active Amitriptyline HCl 25 mg 4 tab Orally Once a day Oct, Active Morphine Sulfate ER 15 MG 1 tablet Orally every 8 hour s as needed, MDD=3 for 30 Days Jan, Active Primidone 250 MG 1/2 tablet Orally Twice a day Active AmLODIPine Besylate 10 MG 1 tablet Orally Once a day Active PROCEDURES No Information RESULTS No Results REASON FOR VISIT Morphine Issue MEDICAL (GENERAL) HISTORY Type Description Date Medical History Chronic low back pain - DDD Medical History Right arm pain - biceps tend on rupture - [facility] - s/p surgical repair 2013 with residual numbness and pain - Medical History Macrocytic anemia Medical History Pulmonary nodules - Chest CT 09/25/13 - mild COPD, old granulomatous disease with calcified 11mm nodule in LLL, calcified left hilar nodes. 3mm noncalcified pulmonary nodule just adjacent to and continuos with other pulmonary nodule. Recommend f/u CT chest 09/25. - F/U CT done 08/03/15 - chronic changes, stable 3 mm nodule c/w 09/25/13 - no further imaging needed Medical History Vitamin D deficiency Medical History Right torn rotator cuff/ torn left rotat or cuff Medical History depression Medical History Hypertension Medical History BL hand tremor - Per imaging at [facility]-spine x-rays showed severe degenerative changes, MRI showed mild Degenerative changes. F/U MRI pending per Neurosurgery (comp case) - Neuology Dr. 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 Devine) Medical History 08/2019 - Echo - NormalLV si ze and systolic function, Normal diastolic function, Elevated pul central pressure Surgical History Bicep-Rt side 2014 Surgical History rotator cuff tear repair-left 02/2017 Surgical History Colonoscopy 2016 Surgical History Right rotator cuff repair- RIGHT 06/2018 Hospitalization History sees above- SURGERIES Hospitalization History Hyponatremia 09/2019 Goals Section No Information Health Concerns No Information MEDICAL EQUIPMENT No Information MENTAL STATUS No Information FUNCTIONAL STATUS No Information ASSESSMENTS Encounter Date Diagnosis Assessment Notes Treatment Notes Treatm ent Clinical Notes Jan, Intervertebral disc disorder s with radiculopathy, lumbar region (ICD-10 - M51.16) PLAN OF TREATMENT Medication Medication Name Sig Start Date Stop Date Morphine Sulfate 15 MG 1 tablet as needed Orally q8h prn mdd 3 for 30 Days Jan, Morphine Sulfate ER 15 MG 1 tablet Orally every 8 hour s as needed, MDD=3 for 30 Days Jan, Diazepam 2 MG 1 tab am, 1/2 tab noon, 1 ta b pm Orally as directed MDD = 2 1/2 for 30 days Oct, Percocet 10-325 MG 1 tablet as needed Orally ev nguyen 6 hrs MDD4 #90 TAB SHOULD LAST 30 DAYS for 30 Days Jan, AmLODIPine Besylate 10 MG 1 tablet Orally Once a day Propranolol HCl 20 MG 1 tablet Orally tid Aspirin 81 MG 1 tablet Orally Once a day for 90 days Primidone 250 MG 1/2 tablet Orally Twice a day Amitriptyline HCl 25 mg 4 tab Orally Once a day Oct, Morphine Sulfate ER 15 MG 1 tablet Orally q8h TID MDD3 for 30 Da ys Jan, Gabapentin 300 MG 1 capsuleam, 1 cap noon, 2 caps pm Orally as d irected Omeprazole 40 MG 1 capsule 30 minutes before morning meal Orally Once a day for 30 day(s) Dec, Amlodipine Besylate-Valsartan 5-160 MG 1 tablet Orally Once a da y Sucralfate 1 GM 1 tablet on an empty stomach Orally before each meal for 30 Days Dec, Next Appt Details Provider Name:Ruma Zavala, 2020-01 10:30:00 AM, [address] [place] [address], [phone], Provider Name:Kavya Paredes, 2020-01 02:00:00 PM, [address], [phone] Provider Name:Ruma Zavala, 2020-02 10:30:00 AM, [address] [place] [address], [phone], Provider Name:Brigid Poe, 2020-02-24 01 :30:00 PM, [address] [place], [phone], Insurance Providers Payer Name Payer Address Payer Phone Insured Name Patient Relati onship to Insured Coverage Start Date Coverage End Date MEDICARE Part A and B [facility] [address] [facility] [id number] [phone] TAMARA MONROY [facility] PPO [phone] [address] TAMARA MONROY self
--- OUTSIDE RECORDS SUMMARY | 2020-02-29 16:26 | CCD ---
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 Name Role Phone Brigid Poe Unavailable PROBLEMS Type Condition ICD9-CM Code [id number] Code Onset Dates Condition S tatus SNOMED Code Notes Problem Major depressive disorder wi th single episode, remission status unspecified F32.9 Active 79247059 Problem Vitamin D deficiency E55.9 Active 09706745 Problem Cigarette nicotine dependence without complication F17.210 Active 79592891 Problem Sacroiliac joint pain M53.3 Active 071216648 Problem Intervertebral disc disorders with radiculopathy , lumbosacral region M51.17 Active 7424117 Problem Chronic prescription opiate use Z79.891 Active 098369835 Problem Lumbar radicular pain M54.16 Active 89546212 Problem Intervertebral disc disorders with radiculopathy , lumbar region M51.16 Active 385275449877458 Problem Abnormal weight loss R63.4 Active 258787197 Problem Myalgia, other site M79.18 Active 70314041 Problem Multiple lung nodules on CT R91.8 Active 4452 22484 Problem Hyperlipidemia E78.5 Active 67241937 Problem Macrocytosis D75.89 Active 402793462 Problem Myalgia M79.1 Active 72409899 Problem Intervertebral disc disorder with radiculopathy of lumbosacral region M51.17 Active 83516508 Problem Neuropathy G62.9 Active 274430833 Problem Spondylosis of lumbosacral 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 athy or radiculopathy M47.817 Active 60059473 Problem Pain in left shoulder M25.512 Active 62080632 Problem Essential hypertension I10 Active 87796320 Problem Myalgia M79.10 Active 41127166 Problem Chronic prescription opiate use Z79.899 Active 301108515 Problem Pain in right shoulder M25.511 Active 35201454 Problem Current moderate episode of major depressive disorder without prior episode F32.1 Active 88251927 Problem Chronic obstructive pulmonary disease, unspecified COPD ty pe J44.9 Active 06811496 Problem Pure hypercholesterolemia E78.00 Active 946037 004 Problem Anxiety F41.9 Active 49967080 Problem Other chronic pain G89.29 Active 27164738 Problem Panic disorder F41.0 Active 906513389 Problem Intervertebral disc disorder with radiculopathy of lumbar region M51.16 Active 08436807 Problem Other spondylosis, cervical region M47.892 Activ e 2274293 Problem Sacroiliitis M46.1 Active 35880122 Problem Low back pain M54.5 Active 940988074 Problem Bilateral sacroiliitis M46.1 Active 827382372 61711192 Problem Tremor of both hands R25.1 Active 377889948 ALLERGIES Allergen (clinical drug ingredient) Drug/Non Drug Allergy do cumented on EMR Reaction Allergy Type Onset Date Status duloxetine Cymbalta([facility] Code:[address]-20) chest pain Drug Allergy Active dexamethasone Dexamethasone(ND Code:[address]-12) erythema Drug A llergy Active Penicillin (For Allergies Use Only) told as a child to not take Drug Allergy Active ENCOUNTERS from 1964 to 2020-01-27 Encounter Location Date Provider Diagnosis [facility] [address] [place] [phone] Jan, Brigid Poe Intervertebral disc disorders with [...] College Language: Question Answer Notes Languages spoken: Bulgarian Mormon: Question Answer Notes Mormon 21 Zoroastrian Sexual Hx: Question Answer Notes Had sex [...] tablet Orally tid Active Vitamin D (Ergocalciferol) 46398 UNIT 1 capsule Orally once a week [...] Information RESULTS No Results REASON FOR VISIT MORPHINE ER REFILL MEDICAL (GENERAL) HISTORY Type Description Date Medical History Chronic low back pain - DDD Medical History Right arm pain - biceps tend on rupture - [facility] - s/p surgical repair 2013 with residual [...] BL hand tremor - Per imaging at [facility]-spine x-rays showed severe degenerative changes, MRI showed mild Degenerative changes. F/U MRI pending per Neurosurgery (comp case) - Neuology Dr. 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 Devine) Medical History 08/2019 - Echo [...] Details Provider Name:Ruma Zavala, 2020-01 10:30:00 AM, [address] [place] [address], [phone], Provider Name:Kavya Paredes, 2020-01 02:00:00 PM, [address] [place] [address], [phone] Provider Name:Ruma Zavala, 2020-02 10:30:00 AM, [address] [place] [address], [phone], Provider Name:Brigid Poe, 2020-02-24 01 :30:00 PM, [address] [place] [address], [phone], Insurance Providers Payer Name Payer Address Payer Phone Insured Name Patient Relati onship to Insured Coverage Start Date Coverage End Date [facility] PPO [phone] [address] TAMARA MONROY self MEDICARE Part A and B [address] [facility] [address] [phone] TAMARA MONROY self
--- OUTSIDE RECORDS SUMMARY | 2020-02-29 16:26 | CCD ---
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 Role Phone Brigid Poe Unavailable PROBLEMS Type Condition ICD9-CM Code PQI86-NG Code Onset Dates Condition S tatus SNOMED Code Notes Problem Vitamin D deficiency E55.9 Active 87858150 Problem Intervertebral disc disorders with radiculopathy , lumbosacral region M51.17 Active 1625969 Problem Cigarette nicotine dependence without complication F17.210 Active 26102293 Problem Lumbar radicular pain M54.16 Active 02955198 Problem Sacroiliac joint pain M53.3 Active 516165171 Problem Intervertebral disc disorder with radiculopathy of lumbar region M51.16 Active 53594029 Problem Chronic prescription opiate use Z79.891 Active 878994327 Problem Current moderate episode of major depressive disorder without prior episode F32.1 Active 98277414 Problem Macrocytosis D75.89 Active 476880632 Problem Intervertebral disc disorders with radiculopathy , lumbar region M51.16 Active 368527643637353 Problem Abnormal weight loss R63.4 Active 826821404 Problem Major depressive disorder wi th single episode, remission status unspecified F32.9 Active 87390954 Problem Hyperlipidemia E78.5 Active 26744857 Problem Spondylosis of lumbosacral 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 athy or radiculopathy M47.817 Active 37732335 Problem Myalgia M79.1 Active 96677931 Problem Essential hypertension I10 Active 43281506 Problem Neuropathy G62.9 Active 230376604 Problem Pain in right shoulder M25.511 Active 31552923 Problem Pain in left shoulder M25.512 Active 68373463 Problem Myalgia, other site M79.18 Active 83830503 Problem Multiple lung nodules on CT R91.8 Active 1460 93869 Problem Myalgia M79.10 Active 99561675 Problem Chronic prescription opiate use Z79.899 Active 675246413 Problem Chronic obstructive pulmonary disease, unspecified COPD ty pe J44.9 Active 94773239 Problem Pure hypercholesterolemia E78.00 Active 611898 004 Problem Sacroiliitis M46.1 Active 65083208 Problem Panic disorder F41.0 Active 653174352 Problem Other spondylosis, cervical region M47.892 Activ e 5729357 Problem Primary insomnia F51.01 Active 9996388 Problem Other chronic pain G89.29 Active 45395796 Problem Intervertebral disc disorder with radiculopathy of lumbosacral region M51.17 Active 26068462 Problem Low back pain M54.5 Active 817115813 Problem Bilateral sacroiliitis M46.1 Active 262822719 59413025 Problem Tremor of both hands R25.1 Active 755063957 Problem Anxiety F41.9 Active 21797707 ALLERGIES Allergen (clinical drug ingredient) Drug/Non Drug Allergy do cumented on EMR Reaction Allergy Type Onset Date Status duloxetine Cymbalta([facility] Code:[address]-09) chest pain Drug Allergy Active dexamethasone Dexamethasone(ND Code:[address]-12) erythema Drug A llergy Active Penicillin (For Allergies Use Only) told as a child to not take Drug Allergy Active ENCOUNTERS from 1964 to 2020-02-23 Encounter Location Date Provider Diagnosis [facility] [address] [place] [phone] Feb, Brigid Poe Intervertebral disc disorders with radic [...] College Language: Question Answer Notes Languages spoken: Setswana Sikh: Question Answer Notes Sikh 21 Christianity Sexual Hx: Question Answer Notes Had sex [...] Notes Start Da te End Date Status Aspirin 81 MG 1 tablet Orally Once a day for 90 days Active Amitriptyline HCl 25 mg 5 tab Orally Once a day at bedtime Oct, Active Propranolol HCl 20 MG 1 tablet Orally twice a day Active Vitamin D (Ergocalciferol) 02715 UNIT 1 capsule Orally once a week (mondays) for 30 Days Active Gabapentin 300 MG 1 capsuleam, 1 cap noon, 3 caps pm Orally as direct ed Active Sucralfate 1 GM 1 tablet on an empty stomach Orally before each meal for 30 Days Dec, Active Percocet 10-325 MG 1 tablet as needed Orally ev nguyen 6 hrs MDD4 #90 TAB SHOULD LAST 30 DAYS for 30 Days Feb, Active Primidone 250 MG 1/4 tablet Orally Twice a day Active Morphine Sulfate 15 MG 1 tablet as needed Orally q8h prn mdd3 fo r 30 Days Feb, Active Duloxetine HCl 30 MG 1 capsule Orally twice a day Active Spiriva Respimat 1.25 MCG/ACT 2 puffs Inhalation Once a day for 30 days Dec, Not-Taking Atorvastatin Calcium 40 MG 1 tablet Orally Once a day for 90 day s 13 Mar, 2019 Active Omeprazole 40 MG 1 capsule 30 minutes before morning meal Orally Once a day for 30 day(s) Dec, Active Multivitamins OTC 1 tablet Orally once a day Active Ipratropium-Albuterol 0.5-2.5 (3) MG/3ML 3 ml as neede d Inhalation three times a day Jan, Active Budesonide 180 MCG/ACT 1 puff Inhalation Once a day for 30 days Feb, Active Amlodipine Besylate-Valsartan 5-160 MG 1 tablet Orally Once a day Active Diazepam 2 MG 1 tab am, 1/2 tab noon, 1/2 tab pm Orally as directed MDD = 2 1/2 for 30 Days Oct, Active PROCEDURES No Information RESULTS No Results REASON FOR VISIT Refill Percocet and Morphine Sulfate MEDICAL (GENERAL) HISTORY Type Description Date Medical History Chronic low back pain - DDD Medical History Right arm pain - biceps tend on rupture - [facility] - s/p surgical repair 2013 with residual [...] BL hand tremor - Per imaging at [facility]-spine x-rays showed severe degenerative changes, MRI showed mild Degenerative changes. F/U MRI pending per Neurosurgery (comp case) - Neuology Dr. 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 Devine) Medical History 08/2019 - Echo [...] Notes Treatment Notes Treatm ent Clinical Notes Feb, Intervertebral disc disorder s with radiculopathy, lumbar region (ICD-10 - M51.16) PLAN OF TREATMENT Medication Medication Name Sig Start Date Stop Date Morphine Sulfate 15 MG 1 tablet as needed Orally q8h prn mdd 3 for 30 Days Feb, Budesonide 180 MCG/ACT 1 puff Inhalation Once a day for 30 days Feb, Percocet 10-325 MG 1 tablet as needed Orally ev nguyen 6 hrs MDD4 #90 TAB SHOULD LAST 30 DAYS for 30 Days Feb, Insurance Providers Payer Name Payer Address Payer Phone Insured Name Patient Relati onship to Insured Coverage Start Date Coverage End Date MEDICARE Part A and B [address] [facility] [address] TAMARA MONROY self
--- OUTSIDE RECORDS SUMMARY | 2020-02-29 16:26 | CCD ---
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 Name Role Phone Brigid Poe Unavailable PROBLEMS Type Condition ICD9-CM Code UPD22-WL Code Onset Dates Condition S tatus SNOMED Code Notes Problem Vitamin D deficiency E55.9 Active 39013874 Problem Intervertebral disc disorders with radiculopathy , lumbosacral region M51.17 Active 5135048 Problem Cigarette nicotine dependence without complication F17.210 Active 02085292 Problem Lumbar radicular pain M54.16 Active 25792229 Problem Sacroiliac joint pain M53.3 Active 615470798 Problem Intervertebral disc disorder with radiculopathy of lumbar region M51.16 Active 62583475 Problem Chronic prescription opiate use Z79.891 Active 480396649 Problem Current moderate episode of major depressive disorder without prior episode F32.1 Active 74842700 Problem Macrocytosis D75.89 Active 893642545 Problem Intervertebral disc disorders with radiculopathy , lumbar region M51.16 Active 310246733533822 Problem Abnormal weight loss R63.4 Active 595267826 Problem Major depressive disorder wi th single episode, remission status unspecified F32.9 Active 02639618 Problem Hyperlipidemia E78.5 Active 57557307 Problem Spondylosis of lumbosacral 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 athy or radiculopathy M47.817 Active 24854700 Problem Myalgia M79.1 Active 71474422 Problem Essential hypertension I10 Active 21593778 Problem Neuropathy G62.9 Active 915731047 Problem Pain in right shoulder M25.511 Active 36526030 Problem Pain in left shoulder M25.512 Active 26305379 Problem Myalgia, other site M79.18 Active 48233004 Problem Multiple lung nodules on CT R91.8 Active 4798 79941 Problem Myalgia M79.10 Active 82477038 Problem Chronic prescription opiate use Z79.899 Active 193782303 Problem Chronic obstructive pulmonary disease, unspecified COPD ty pe J44.9 Active 64849672 Problem Pure hypercholesterolemia E78.00 Active 421505 004 Problem Sacroiliitis M46.1 Active 55701180 Problem Panic disorder F41.0 Active 421856046 Problem Other spondylosis, cervical region M47.892 Activ e 7987988 Problem Primary insomnia F51.01 Active 1521952 Problem Other chronic pain G89.29 Active 78063469 Problem Intervertebral disc disorder with radiculopathy of lumbosacral region M51.17 Active 51172440 Problem Low back pain M54.5 Active 385924325 Problem Bilateral sacroiliitis M46.1 Active 337702676 53564385 Problem Tremor of both hands R25.1 Active 822417902 Problem Anxiety F41.9 Active 64044480 ALLERGIES Allergen (clinical drug ingredient) Drug/Non Drug Allergy do cumented on EMR Reaction Allergy Type Onset Date Status duloxetine Cymbalta([facility] Code:[address]-09) chest pain Drug Allergy Active dexamethasone Dexamethasone([facility] Code:[address]-35) erythema Drug A llergy Active Penicillin (For Allergies Use Only) told as a child to not take Drug Allergy Active ENCOUNTERS from 1964 to 2020-01-28 Encounter Location Date Provider Diagnosis [facility] [address] [place] [phone] Jan, Brigid Poe Intervertebral disc disorders with [...] College Language: Question Answer Notes Languages spoken: Upper Sorbian Christian: Question Answer Notes Christian 21 Caodaism Sexual Hx: Question Answer Notes Had sex [...] Notes Start Da te End Date Status Omeprazole 40 MG 1 capsule 30 minutes before morning meal Orally Once a day for 30 day(s) Dec, Active Ipratropium-Albuterol 0.5-2.5 (3) MG/3ML 3 ml as neede d Inhalation three times a day Jan, Active Propranolol HCl 20 MG 1 tablet Orally twice a day Active Diazepam 2 MG 1 tab am, 1/2 tab noon, 1/2 tab pm Orall y as directed MDD = 2 /2 Oct, Active Atorvastatin Calcium 40 MG 1 tablet Orally Once a day for 90 day s Mar, Active Primidone 250 MG 1/4 tablet Orally Twice a day Active Amlodipine Besylate-Valsartan 5-160 MG 1 tablet Orally Once a day Active Amitriptyline HCl 25 mg 5 tab Orally Once a day at bedtime Oct, Active Multivitamins OTC 1 tablet Orally once a day Active Vitamin D (Ergocalciferol) 96866 UNIT 1 capsule Orally once a week (mondays) for 30 Days Active Percocet 10-325 MG 1 tablet as needed Orally ev nguyen 6 hrs MDD4 #90 TAB SHOULD LAST 30 DAYS for 30 Days Jan, Not-Joaquin ing Morphine Sulfate 15 MG 1 tablet as needed Orally q8h prn mdd3 fo r 30 Days Jan, Active Sucralfate 1 GM 1 tablet on an empty stomach Orally before each meal for 30 Days 10 Dec, 2019 Active Spiriva Respimat 1.25 MCG/ACT 2 puffs Inhalation Once a day for 30 days Dec, Not-Taking Gabapentin 300 MG 1 capsuleam, 1 cap noon, 3 caps pm Orally as direct ed Active Duloxetine HCl 30 MG 1 capsule Orally twice a day Active Aspirin 81 MG 1 tablet Orally Once a day for 90 days Active PROCEDURES No Information RESULTS No Results REASON FOR VISIT Morphine Issue MEDICAL (GENERAL) HISTORY Type Description Date Medical History Chronic low back pain - DDD Medical History Right arm pain - biceps tend on rupture - [facility] - s/p surgical repair 2013 with residual [...] BL hand tremor - Per imaging at [facility]-spine x-rays showed severe degenerative changes, MRI showed mild Degenerative changes. F/U MRI pending per Neurosurgery (comp case) - Neuology Dr. 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 Devine) Medical History 08/2019 - [...] Medication Name Sig Start Date Stop Date Amitriptyline HCl 25 mg 5 tab Orally Once a day at bedtime 25 Se p, 2018 Gabapentin 300 MG 1 capsuleam, 1 cap noon, 3 caps pm Orally as d irected Ipratropium-Albuterol 0.5-2.5 (3) MG/3ML 3 ml as neede d Inhalation three times a day Jan, Propranolol HCl 20 MG 1 tablet Orally twice a day Diazepam 2 MG 1 tab am, 1/2 tab noon, 1/2 tab pm Orall y as directed MDD = 2 02/12Oct, Next Appt Details Provider Name:Kavyaanthony Paredes, 2020-01 02:00:00 PM, [address] [place] [address], [phone] Provider Name:Ruma Zavala, 2020-02 10:30:00 AM, [address] [place] [address], [phone], Provider Name:Brigid Poe, 2020-02-24 01 :30:00 PM, [address] [place], [phone], Insurance Providers Payer Name Payer Address Payer Phone Insured Name Patient Relati onship to Insured Coverage Start Date Coverage End Date MEDICARE Part A and B [address] [facility] [id number] TAMARA MONROY self [employer] PPO [id number] [address] TAMARA MONROY self
--- OUTSIDE RECORDS SUMMARY | 2020-02-29 16:26 | CCD ---
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 Tank Operator Name Role Phone ReggieKavya Unavailable PROBLEMS Type Condition ICD9-CM Code [id number] Code Onset Dates Condition S tatus SNOMED Code Notes Problem Vitamin D deficiency E55.9 Active 92133768 Problem Intervertebral disc disorders with radiculopathy , lumbosacral region M51.17 Active 9420097 Problem Cigarette nicotine dependence without complication F17.210 Active 77857995 Problem Lumbar radicular pain M54.16 Active 59180563 Problem Sacroiliac joint pain M53.3 Active 339025499 Problem Intervertebral disc disorder with radiculopathy of lumbar region M51.16 Active 46248928 Problem Chronic prescription opiate use Z79.891 Active 146873251 Problem Current moderate episode of major depressive disorder without prior episode F32.1 Active 70342066 Problem Macrocytosis D75.89 Active 921089659 Problem Intervertebral disc disorders with radiculopathy , lumbar region M51.16 Active 636769833033222 Problem Abnormal weight loss R63.4 Active 418842541 Problem Major depressive disorder wi th single episode, remission status unspecified F32.9 Active 27258056 Problem Hyperlipidemia E78.5 Active 43531817 Problem Spondylosis of lumbosacral 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 athy or radiculopathy M47.817 Active 97614461 Problem Myalgia M79.1 Active 66522823 Problem Essential hypertension I10 Active 06612222 Problem Neuropathy G62.9 Active 626579173 Problem Pain in right shoulder M25.511 Active 25164575 Problem Pain in left shoulder M25.512 Active 51897021 Problem Myalgia, other site M79.18 Active 86479672 Problem Multiple lung nodules on CT R91.8 Active 6512 49857 Problem Myalgia M79.10 Active 12638915 Problem Chronic prescription opiate use Z79.899 Active 663057310 Problem Chronic obstructive pulmonary disease, unspecified COPD ty pe J44.9 Active 62488069 Problem Pure hypercholesterolemia E78.00 Active 473246 004 Problem Sacroiliitis M46.1 Active 05734445 Problem Panic disorder F41.0 Active 247839241 Problem Other spondylosis, cervical region M47.892 Activ e 2781176 Problem Primary insomnia F51.01 Active 4933362 Problem Other chronic pain G89.29 Active 58864898 Problem Intervertebral disc disorder with radiculopathy of lumbosacral region M51.17 Active 28321403 Problem Low back pain M54.5 Active 191111244 Problem Bilateral sacroiliitis M46.1 Active 797403106 03830852 Problem Tremor of both hands R25.1 Active 951375775 Problem Anxiety F41.9 Active 60369358 ALLERGIES Allergen (clinical drug ingredient) Drug/Non Drug Allergy do cumented on EMR Reaction Allergy Type Onset Date Status duloxetine Cymbalta([facility] Code:[address]-32) chest pain Drug Allergy Active dexamethasone Dexamethasone([facility] Code:[address]-96) erythema Drug A llergy Active Penicillin (For Allergies Use Only) told as a child to not take Drug Allergy Active ENCOUNTERS from 1965 to 2020-01-30 Encounter Location Date Provider Diagnosis [address] [place] [address] Jan Kavya Paredes Major depressive disorder with single ep isode, remission status unspecified F32.9 IMMUNIZATIONS Vaccine Route Administration Date Status Influenza [...] College Language: Question Answer Notes Languages spoken: Faroese Mandaeism: Question Answer Notes Mandaeism 21 Cheondoism Sexual Hx: Question Answer Notes Had sex [...] Orall y as directed MDD = 2 /Oct, Active Atorvastatin Calcium 40 MG 1 tablet [...] once a day Active Vitamin D (Ergocalciferol) 09115 UNIT 1 capsule Orally once a week [...] Information RESULTS No Results REASON FOR VISIT follow up intake complete at MEDICAL (GENERAL) HISTORY Type Description Date Medical History Chronic low back pain - DDD Medical History Right arm pain - biceps tend on rupture - [facility] - s/p surgical repair 2013 with [...] BL hand tremor - Per imaging at [facility]-spine x-rays showed severe degenerative changes, MRI showed mild Degenerative changes. F/U MRI pending per Neurosurgery (comp case) - Neuology Dr. 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 Devine) Medical History 08/2019 - Echo [...] Treatment Notes Treatm ent Clinical Notes Jan, Major depressive disorder wi th single episode, remission status unspecified (ICD-10 - F32.9) Tamara was seen for a follow up session. Reports symptoms have remained the same. Scheduled for a return session 02/09/2020 PLAN OF TREATMENT Medication Medication Name Sig Start Date Stop Date Amitriptyline HCl 25 mg 5 tab Orally Once a day at bedtime 2017 Gabapentin 300 MG 1 capsuleam, 1 cap noon, 3 caps pm Orally as d irected Ipratropium-Albuterol 0.5-2.5 (3) MG/3ML 3 ml as neede d Inhalation three times a day Jan, Propranolol HCl 20 MG 1 tablet Orally twice a day Diazepam 2 MG 1 tab am, 1/2 tab noon, 1/2 tab pm Orall y as directed MDD = 2 02/12Oct, Treatment Notes Assessment Notes Clinical Notes Major depressive disorder with single episode, remission sta tus unspecified Tamara was seen for a follow up session. Reports symptoms have remained the same. Scheduled for a return session 02/09/2020 Next Appt Details Provider Name:Kavya Paredes, 2020-01 02:00:00 PM, [address] [place] [address], [phone] Provider Name:Ruma Zavala, 2020-02 10:30:00 AM, [address], [place], [phone], Provider Name:Brigid Poe, 2020-02-24 01 :30:00 PM, [address] [place], [phone], Insurance Providers Payer Name Payer Address Payer Phone Insured Name Patient Relati onship to Insured Coverage Start Date Coverage End Date MEDICARE Part A and B [facility] [address] [facility] [id number] [phone] TAMARA MONROY self [employer] PPO [phone] [address] TAMARA MONROY self
--- OUTSIDE RECORDS SUMMARY | 2020-02-29 16:26 | CCD ---
Author Author [facility] Syst ems Organization [facility] [employer] Syst ems Address Unknown Phone Unavailable Care Team Providers Care Sack Repairer Name Role Phone Ruma Zavala Unavailable PROBLEMS Type Condition ICD9-CM Code [id number] Code Onset Dates Condition S tatus SNOMED Code Notes Problem Vitamin D deficiency E55.9 Active 35237753 Problem Intervertebral disc disorders with radiculopathy , lumbosacral region M51.17 Active 0330030 Problem Cigarette nicotine dependence without complication F17.210 Active 80950853 Problem Lumbar radicular pain M54.16 Active 74917487 Problem Sacroiliac joint pain M53.3 Active 537928768 Problem Intervertebral disc disorder with radiculopathy of lumbar region M51.16 Active 57450586 Problem Chronic prescription opiate use Z79.891 Active 502054353 Problem Current moderate episode of major depressive disorder without prior episode F32.1 Active 95625937 Problem Macrocytosis D75.89 Active 258477197 Problem Intervertebral disc disorders with radiculopathy , lumbar region M51.16 Active 032856039206699 Problem Abnormal weight loss R63.4 Active 078366839 Problem Major depressive disorder wi th single episode, remission status unspecified F32.9 Active 64101964 Problem Hyperlipidemia E78.5 Active 57362339 Problem Spondylosis of lumbosacral 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 athy or radiculopathy M47.817 Active 02766253 Problem Myalgia M79.1 Active 03241350 Problem Essential hypertension I10 Active 58270231 Problem Neuropathy G62.9 Active 370986786 Problem Pain in right shoulder M25.511 Active 56787447 Problem Pain in left shoulder M25.512 Active 72600754 Problem Myalgia, other site M79.18 Active 63311509 Problem Multiple lung nodules on CT R91.8 Active 4702 99782 Problem Myalgia M79.10 Active 83737966 Problem Chronic prescription opiate use Z79.899 Active 996168973 Problem Chronic obstructive pulmonary disease, unspecified COPD ty pe J44.9 Active 86145307 Problem Pure hypercholesterolemia E78.00 Active 649605 004 Problem Sacroiliitis M46.1 Active 74561494 Problem Panic disorder F41.0 Active 053137894 Problem Other spondylosis, cervical region M47.892 Activ e 3954354 Problem Primary insomnia F51.01 Active 8874237 Problem Other chronic pain G89.29 Active 63264645 Problem Intervertebral disc disorder with radiculopathy of lumbosacral region M51.17 Active 03159429 Problem Low back pain M54.5 Active 737776461 Problem Bilateral sacroiliitis M46.1 Active 149556593 87443267 Problem Tremor of both hands R25.1 Active 770580167 Problem Anxiety F41.9 Active 06104648 ALLERGIES Allergen (clinical drug ingredient) Drug/Non Drug Allergy do cumented on EMR Reaction Allergy Type Onset Date Status duloxetine Cymbalta([facility] Code:[address]-76) chest pain Drug Allergy Active dexamethasone Dexamethasone([facility] Code:[address]-62) erythema Drug A llergy Active Penicillin (For Allergies Use Only) told as a child to not take Drug Allergy Active ENCOUNTERS from 1964 to 2020-02-23 Encounter Location Date Provider Diagnosis [facility] [address] [place] [address] Feb, Reg christine Zavala IMMUNIZATIONS Vaccine Route Administration Date Status Influenza [...] Language: Question Answer Notes Languages spoken: Faroese Adventism: Question Answer Notes Adventism 21 Baptist Sexual Hx: Question Answer Notes Had sex [...] twice a day Active Vitamin D (Ergocalciferol) 37783 UNIT 1 capsule Orally once a week [...] day for 90 day s Mar, Active Omeprazole 40 MG 1 capsule 30 [...] Information RESULTS No Results REASON FOR VISIT new referral MEDICAL (GENERAL) HISTORY Type Description Date Medical History Chronic low back pain - DDD Medical History Right arm pain - biceps tend on rupture - [facility] s/p surgical repair 2013 with residual numbness [...] BL hand tremor - Per imaging at [facility]-spine x-rays showed severe degenerative changes, MRI showed mild Degenerative changes. F/U MRI pending per Neurosurgery (comp case) - Neuology Dr. 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 Devine) Medical History 08/2019 - [...] No Information FUNCTIONAL STATUS No Information ASSESSMENTS No Information PLAN OF TREATMENT Medication Medication Name Sig [...] Part A and B [address] [facility] [address] TAMARA MONROY self
--- OUTSIDE RECORDS SUMMARY | 2020-02-29 16:26 | CCD ---
Author Author [facility] Syst ems Organization [facility] [employer] Syst ems Address Unknown Phone Unavailable Care Team Providers Care Piano Refinisher Name Role Phone Brigid Poe Unavailable PROBLEMS Type Condition ICD9-CM Code [id number] Code Onset Dates Condition S tatus SNOMED Code Notes Problem Vitamin D deficiency E55.9 Active 04862045 Problem Intervertebral disc disorders with radiculopathy , lumbosacral region M51.17 Active 1389633 Problem Cigarette nicotine dependence without complication F17.210 Active 90801745 Problem Lumbar radicular pain M54.16 Active 17310146 Problem Sacroiliac joint pain M53.3 Active 798486585 Problem Intervertebral disc disorder with radiculopathy of lumbar region M51.16 Active 03441485 Problem Chronic prescription opiate use Z79.891 Active 694852515 Problem Current moderate episode of major depressive disorder without prior episode F32.1 Active 68858797 Problem Macrocytosis D75.89 Active 999564733 Problem Intervertebral disc disorders with radiculopathy , lumbar region M51.16 Active 090682629063229 Problem Abnormal weight loss R63.4 Active 099287129 Problem Major depressive disorder wi th single episode, remission status unspecified F32.9 Active 32021789 Problem Hyperlipidemia E78.5 Active 11419366 Problem Spondylosis of lumbosacral 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 athy or radiculopathy M47.817 Active 03499116 Problem Myalgia M79.1 Active 32850707 Problem Essential hypertension I10 Active 04752643 Problem Neuropathy G62.9 Active 570783894 Problem Pain in right shoulder M25.511 Active 95779445 Problem Pain in left shoulder M25.512 Active 90077611 Problem Myalgia, other site M79.18 Active 47493146 Problem Multiple lung nodules on CT R91.8 Active 8696 23076 Problem Myalgia M79.10 Active 96692162 Problem Chronic prescription opiate use Z79.899 Active 003629321 Problem Chronic obstructive pulmonary disease, unspecified COPD ty pe J44.9 Active 82206359 Problem Pure hypercholesterolemia E78.00 Active 428946 004 Problem Sacroiliitis M46.1 Active 11091552 Problem Panic disorder F41.0 Active 147206702 Problem Other spondylosis, cervical region M47.892 Activ e 4758732 Problem Primary insomnia F51.01 Active 7670900 Problem Other chronic pain G89.29 Active 86003636 Problem Intervertebral disc disorder with radiculopathy of lumbosacral region M51.17 Active 53276833 Problem Low back pain M54.5 Active 947885801 Problem Bilateral sacroiliitis M46.1 Active 012842539 85403502 Problem Tremor of both hands R25.1 Active 377746661 Problem Anxiety F41.9 Active 36119716 ALLERGIES Allergen (clinical drug ingredient) Drug/Non Drug Allergy do cumented on EMR Reaction Allergy Type Onset Date Status duloxetine Cymbalta([facility] Code:[address]-72) chest pain Drug Allergy Active dexamethasone Dexamethasone([facility] Code:[address]-93) erythema Drug A llergy Active Penicillin (For Allergies Use Only) told as a child to not take Drug Allergy Active ENCOUNTERS from 1964 to 2020-01-28 Encounter Location Date Provider Diagnosis [facility] [address] [place] [address] Jan, Brigid Poe Intervertebral disc disorders with [...] College Language: Question Answer Notes Languages spoken: Spanish Sikh: Question Answer Notes Sikh 21 Tenriism Sexual Hx: Question Answer Notes Had sex [...] once a day Active Vitamin D (Ergocalciferol) 08091 UNIT 1 capsule Orally once a week [...] RESULTS No Results REASON FOR VISIT MORPHINE SCRIP SENT TODAY 01/27/2020 MEDICAL (GENERAL) HISTORY Type Description Date Medical [...] BL hand tremor - Per imaging at [facility]-spine x-rays showed severe degenerative changes, MRI showed mild Degenerative changes. F/U MRI pending per Neurosurgery (comp case) - Neuology Dr. 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 Devine) Medical History 08/2019 - [...] = 2 02/12Oct, Next Appt Details Provider Name:Kavya Paredes, 2020-01 02:00:00 PM, [address] [place] [address], [phone] Provider Name:Ruma Zavala, 2020-02 10:30:00 AM, [address] [place] [address], [phone], Provider Name:Brigid Poe, 2020-02-24 01 :30:00 PM, [address] [place] [address], [phone], Insurance Providers Payer Name Payer Address Payer Phone Insured Name Patient Relati onship to Insured Coverage Start Date Coverage End Date [employer] PPO [id number] [address] TAMARA MONROY self MEDICARE Part A and B [address] [place] [phone] TAMARA MONROY self
--- OUTSIDE RECORDS SUMMARY | 2020-02-29 16:26 | CCD ---
Author Author [facility] Syst ems Organization [facility] [employer] Syst ems Address Unknown Phone Unavailable Care Team Providers Care Scientific Manager Name Role Phone Eric Zavala Unavailable PROBLEMS Type Condition ICD9-CM Code [id number] Code Onset Dates Condition S tatus SNOMED Code Notes Problem Vitamin D deficiency E55.9 Active 00537126 Problem Intervertebral disc disorders with radiculopathy , lumbosacral region M51.17 Active 5441345 Problem Cigarette nicotine dependence without complication F17.210 Active 17832040 Problem Lumbar radicular pain M54.16 Active 67619963 Problem Sacroiliac joint pain M53.3 Active 892528081 Problem Intervertebral disc disorder with radiculopathy of lumbar region M51.16 Active 82770669 Problem Chronic prescription opiate use Z79.891 Active 002397084 Problem Current moderate episode of major depressive disorder without prior episode F32.1 Active 86669421 Problem Macrocytosis D75.89 Active 143398674 Problem Intervertebral disc disorders with radiculopathy , lumbar region M51.16 Active 002341020140853 Problem Abnormal weight loss R63.4 Active 873022237 Problem Major depressive disorder wi th single episode, remission status unspecified F32.9 Active 90400690 Problem Hyperlipidemia E78.5 Active 23708904 Problem Spondylosis of lumbosacral 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 athy or radiculopathy M47.817 Active 26547965 Problem Myalgia M79.1 Active 19196510 Problem Essential hypertension I10 Active 46241315 Problem Neuropathy G62.9 Active 249915231 Problem Pain in right shoulder M25.511 Active 28508367 Problem Pain in left shoulder M25.512 Active 42393675 Problem Myalgia, other site M79.18 Active 31279072 Problem Multiple lung nodules on CT R91.8 Active 4153 30694 Problem Myalgia M79.10 Active 64475361 Problem Chronic prescription opiate use Z79.899 Active 052136457 Problem Chronic obstructive pulmonary disease, unspecified COPD ty pe J44.9 Active 78673751 Problem Pure hypercholesterolemia E78.00 Active 826088 004 Problem Sacroiliitis M46.1 Active 56404022 Problem Panic disorder F41.0 Active 943099213 Problem Other spondylosis, cervical region M47.892 Activ e 5670475 Problem Primary insomnia F51.01 Active 2171848 Problem Other chronic pain G89.29 Active 47908690 Problem Intervertebral disc disorder with radiculopathy of lumbosacral region M51.17 Active 03500542 Problem Low back pain M54.5 Active 233175156 Problem Bilateral sacroiliitis M46.1 Active 559865266 73969372 Problem Tremor of both hands R25.1 Active 995363821 Problem Anxiety F41.9 Active 70378207 ALLERGIES Allergen (clinical drug ingredient) Drug/Non Drug Allergy do cumented on EMR Reaction Allergy Type Onset Date Status duloxetine Cymbalta([facility] Code:[address]-29) chest pain Drug Allergy Active dexamethasone Dexamethasone([facility] Code:[address]-21) erythema Drug A llergy Active Penicillin (For Allergies Use Only) told as a child to not take Drug Allergy Active ENCOUNTERS from 1965 to 2020-02-09 Encounter Location Date Provider Diagnosis [facility] [address] [place] [address] Jan, Jarvis Zavala Anxiety F41.9 IMMUNIZATIONS Vaccine Route Administration Date Status Influenza [...] Question Answer Notes Languages spoken: Upper Sorbian Restorationism: Question Answer Notes Restorationism 21 Jainism Sexual Hx: Question Answer Notes Had sex [...] Notes Start Da te End Date Status Ipratropium-Albuterol 0.5-2.5 (3) MG/3ML 3 ml as neede d Inhalation three times a day Jan, Active Aspirin 81 MG 1 tablet Orally Once a day for 90 days Active Sucralfate 1 GM 1 tablet on an empty stomach Orally before each meal for 30 Days Dec, Active Omeprazole 40 MG 1 capsule 30 minutes before morning meal Orally Once a day for 30 day(s) Dec, Active Amlodipine Besylate-Valsartan 5-160 MG 1 tablet Orally Once a day Active Amitriptyline HCl 25 mg 5 tab Orally Once a day at bedtime Oct, Active Primidone 250 MG 1/4 tablet Orally Twice a day Active Gabapentin 300 MG 1 capsuleam, 1 cap noon, 3 caps pm Orally as direct ed Active Vitamin D (Ergocalciferol) 95459 UNIT 1 capsule Orally once a week (mondays) for 30 Days Active Propranolol HCl 20 MG 1 tablet Orally twice a day Active Atorvastatin Calcium 40 MG 1 tablet Orally Once a day for 90 day s Mar, Active Spiriva Respimat 1.25 MCG/ACT 2 puffs Inhalation Once a day for 30 days Dec, Not-Taking Duloxetine HCl 30 MG 1 capsule Orally twice a day Active Multivitamins OTC 1 tablet Orally once a day Active Diazepam 2 MG 1 tab am, 1/2 tab noon, 1/2 tab pm Orally as directed MDD = 2 1/2 for 30 Days 29 Oct, 2019 Active Percocet 10-325 MG 1 tablet as needed Orally ev nguyen 6 hrs MDD4 #90 TAB SHOULD LAST 30 DAYS for 30 Days Jan, Not-Joaquin ing Morphine Sulfate 15 MG 1 tablet as needed Orally q8h prn mdd3 fo r 30 Days 16 Jan, 2020 Active PROCEDURES No Information RESULTS No Results REASON FOR VISIT refill MEDICAL (GENERAL) HISTORY Type Description Date Medical History Chronic low back pain - DDD Medical History Right arm pain - biceps tend on rupture - [facility] - s/p surgical repair 2013 with [...] BL hand tremor - Per imaging at [facility]-spine x-rays showed severe degenerative changes, MRI showed mild Degenerative changes. F/U MRI pending per Neurosurgery (comp case) - Neuology Dr. 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 Devine) Medical History 08/2019 [...] Treatment Notes Treatm ent Clinical Notes Jan, Anxiety (ICD-10 - F41.9) PLAN OF TREATMENT Medication Medication Name Sig Start Date Stop Date Gabapentin 300 MG 1 capsuleam, 1 cap noon, 3 caps pm Orally as d irected Diazepam 2 MG 1 tab am, 1/2 tab noon, 1/2 tab pm Orally as directed MDD = 2 1/2 for 30 Days Oct, Propranolol HCl 20 MG 1 tablet Orally twice a day Amitriptyline HCl 25 mg 5 tab Orally Once a day at bedtime 2017 Ipratropium-Albuterol 0.5-2.5 (3) MG/3ML 3 ml as neede d Inhalation three times a day Jan, Next Appt Details Provider Name:Ruma Zavala, 2020-02 10:30:00 AM, [address], [place], [address], Provider Name:Brigid Poe, 2020-02-24 01 :30:00 PM, [address] [place], [address], Insurance Providers Payer Name Payer Address Payer Phone Insured Name Patient Relati onship to Insured Coverage Start Date Coverage End Date MEDICARE Part A and B [address] [place] [phone] TAMARA MONROY self [employer] PPO [phone] [address] TAMARA MONROY self
--- OUTSIDE RECORDS SUMMARY | 2020-02-29 16:26 | CCD ---
Author Author [facility] Syst ems Organization [facility] [employer] Syst ems Address Unknown Phone Unavailable Care Team Providers Care Assurance Senior Manager Name Role Phone Brigid Poe Unavailable PROBLEMS Type Condition ICD9-CM Code [id number] Code Onset Dates Condition S tatus SNOMED Code Notes Problem Vitamin D deficiency E55.9 Active 82482630 Problem Intervertebral disc disorders with radiculopathy , lumbosacral region M51.17 Active 1728503 Problem Cigarette nicotine dependence without complication F17.210 Active 85182372 Problem Lumbar radicular pain M54.16 Active 25276265 Problem Sacroiliac joint pain M53.3 Active 617891872 Problem Intervertebral disc disorder with radiculopathy of lumbar region M51.16 Active 91788022 Problem Chronic prescription opiate use Z79.891 Active 236465373 Problem Current moderate episode of major depressive disorder without prior episode F32.1 Active 60134417 Problem Macrocytosis D75.89 Active 721303964 Problem Intervertebral disc disorders with radiculopathy , lumbar region M51.16 Active 521032147138128 Problem Abnormal weight loss R63.4 Active 162852232 Problem Major depressive disorder wi th single episode, remission status unspecified F32.9 Active 80419827 Problem Hyperlipidemia E78.5 Active 88045367 Problem Spondylosis of lumbosacral 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 athy or radiculopathy M47.817 Active 68795551 Problem Myalgia M79.1 Active 63655705 Problem Essential hypertension I10 Active 19035010 Problem Neuropathy G62.9 Active 834683432 Problem Pain in right shoulder M25.511 Active 18691325 Problem Pain in left shoulder M25.512 Active 04941791 Problem Myalgia, other site M79.18 Active 19017095 Problem Multiple lung nodules on CT R91.8 Active 9590 46697 Problem Myalgia M79.10 Active 81230985 Problem Chronic prescription opiate use Z79.899 Active 827478446 Problem Chronic obstructive pulmonary disease, unspecified COPD ty pe J44.9 Active 69861238 Problem Pure hypercholesterolemia E78.00 Active 086709 004 Problem Sacroiliitis M46.1 Active 97092885 Problem Panic disorder F41.0 Active 234680006 Problem Other spondylosis, cervical region M47.892 Activ e 5971943 Problem Primary insomnia F51.01 Active 7371862 Problem Other chronic pain G89.29 Active 14096249 Problem Intervertebral disc disorder with radiculopathy of lumbosacral region M51.17 Active 74677344 Problem Low back pain M54.5 Active 910861427 Problem Bilateral sacroiliitis M46.1 Active 437804570 81624688 Problem Tremor of both hands R25.1 Active 447289542 Problem Anxiety F41.9 Active 24971628 ALLERGIES Allergen (clinical drug ingredient) Drug/Non Drug Allergy do cumented on EMR Reaction Allergy Type Onset Date Status duloxetine Cymbalta([facility] Code:[address]-45) chest pain Drug Allergy Active dexamethasone Dexamethasone([facility] Code:[address]-13) erythema Drug A llergy Active Penicillin (For Allergies Use Only) told as a child to not take Drug Allergy Active ENCOUNTERS from 1965 to 2020-02-23 Encounter Location Date Provider Diagnosis [facility] [address] [place] [address] Feb, Brigid Poe IMMUNIZATIONS Vaccine Route Administration Date Status Influenza [...] College Language: Question Answer Notes Languages spoken: French Moravian: Question Answer Notes Moravian 21 Alevism Sexual Hx: Question Answer Notes Had sex [...] twice a day Active Vitamin D (Ergocalciferol) 93757 UNIT 1 capsule Orally once a week [...] Information RESULTS No Results REASON FOR VISIT Needs follow up appt MEDICAL (GENERAL) HISTORY Type Description Date Medical History Chronic low back pain - DDD Medical History Right arm pain - biceps tend on rupture - [facility] - s/p surgical repair 2013 with [...] BL hand tremor - Per imaging at [facility]-spine x-rays showed severe degenerative changes, MRI showed mild Degenerative changes. F/U MRI pending per Neurosurgery (comp case) - Neuology Dr. 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 Devine) Medical History 08/2019 - Echo [...] A and B [address] [facility] [address] TAMARA MONROY self
--- OUTSIDE RECORDS SUMMARY | 2020-02-29 16:26 | CCD ---
Author Author [facility] Organization [facility] Address Unknown Phone Unavailable Care Team Providers Care Automotive Technician Instructor Name Role Phone Ruma Zavala Unavailable PROBLEMS Type Condition ICD9-CM Code WJR90-SE Code Onset Dates Condition S tatus SNOMED Code Notes Problem Vitamin D deficiency E55.9 Active 51055287 Problem Intervertebral disc disorders with radiculopathy , lumbosacral region M51.17 Active 4398046 Problem Cigarette nicotine dependence without complication F17.210 Active 72323753 Problem Lumbar radicular pain M54.16 Active 15822291 Problem Sacroiliac joint pain M53.3 Active 684921813 Problem Intervertebral disc disorder with radiculopathy of lumbar region M51.16 Active 63499856 Problem Chronic prescription opiate use Z79.891 Active 475776453 Problem Current moderate episode of major depressive disorder without prior episode F32.1 Active 29430660 Problem Macrocytosis D75.89 Active 023531103 Problem Intervertebral disc disorders with radiculopathy , lumbar region M51.16 Active 607505992856059 Problem Abnormal weight loss R63.4 Active 356283026 Problem Major depressive disorder wi th single episode, remission status unspecified F32.9 Active 27813322 Problem Hyperlipidemia E78.5 Active 84504062 Problem Spondylosis of lumbosacral 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 athy or radiculopathy M47.817 Active 82780705 Problem Myalgia M79.1 Active 40210319 Problem Essential hypertension I10 Active 41170466 Problem Neuropathy G62.9 Active 142713748 Problem Pain in right shoulder M25.511 Active 67396375 Problem Pain in left shoulder M25.512 Active 15432213 Problem Myalgia, other site M79.18 Active 29718040 Problem Multiple lung nodules on CT R91.8 Active 5498 71149 Problem Myalgia M79.10 Active 87522424 Problem Chronic prescription opiate use Z79.899 Active 584073417 Problem Chronic obstructive pulmonary disease, unspecified COPD ty pe J44.9 Active 02885827 Problem Pure hypercholesterolemia E78.00 Active 116675 004 Problem Sacroiliitis M46.1 Active 40073856 Problem Panic disorder F41.0 Active 950335117 Problem Other spondylosis, cervical region M47.892 Activ e 2803494 Problem Primary insomnia F51.01 Active 1789264 Problem Other chronic pain G89.29 Active 49063760 Problem Intervertebral disc disorder with radiculopathy of lumbosacral region M51.17 Active 65452904 Problem Low back pain M54.5 Active 140265826 Problem Bilateral sacroiliitis M46.1 Active 538569073 04483563 Problem Tremor of both hands R25.1 Active 305612607 Problem Anxiety F41.9 Active 41500460 ALLERGIES Allergen (clinical drug ingredient) Drug/Non Drug Allergy do cumented on EMR Reaction Allergy Type Onset Date Status duloxetine Cymbalta([facility] Code:[address]-03) chest pain Drug Allergy Active dexamethasone Dexamethasone([facility] Code:[address]-66) erythema Drug A llergy Active Penicillin (For Allergies Use Only) told as a child to not take Drug Allergy Active ENCOUNTERS from 1964 to 2020-02-04 Encounter Location Date Provider Diagnosis [facility] [address] [place] [address] Dec, Reg christine Ahsanalonso IMMUNIZATIONS Vaccine Route Administration Date Status Influenza [...] College Language: Question Answer Notes Languages spoken: Samoan Yarsanism: Question Answer Notes Yarsanism 21 Quaker Sexual Hx: Question Answer Notes Had sex [...] once a day Active Vitamin D (Ergocalciferol) 33971 UNIT 1 capsule Orally once a week [...] each meal for 30 Days Dec, Active Spiriva Respimat 1.25 MCG/ACT 2 puffs Inhalation Once a day for 30 days 17 Dec, 2019 Not-Taking Gabapentin 300 MG 1 capsuleam, 1 cap noon, 3 caps pm Orally as direct ed Active Duloxetine HCl 30 MG 1 capsule Orally twice a day Active Aspirin 81 MG 1 tablet Orally Once a day for 90 days Active PROCEDURES No Information RESULTS No Results REASON FOR VISIT referral MEDICAL (GENERAL) HISTORY Type Description Date Medical History Chronic low back pain - DDD Medical History Right arm pain - biceps tend on rupture - [facility] s/p surgical repair 2013 with residual numbness [...] BL hand tremor - Per imaging at [facility]-spine x-rays showed severe degenerative changes, MRI showed mild Degenerative changes. F/U MRI pending per Neurosurgery (comp case) - Neuology Dr. 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 Devine) Medical History 08/2019 - [...] Details Provider Name:Kavya Paredes, 2020-01 02:00:00 PM, [address] [place] [address], [address] Provider Name:Ruma Zavala, 2020-02 10:30:00 AM, [address], [place], [address], Provider Name:Brigid Poe, 2020-02-24 01 :30:00 PM, [address] [place], [address], Insurance Providers Payer Name Payer Address Payer Phone Insured Name Patient Relati onship to Insured Coverage Start Date Coverage End Date MEDICARE Part A and B [address] [place] [id number] TAMARA MONROY self [employer] PPO [id number] [address] TAMARA MONROY self
--- OUTSIDE RECORDS SUMMARY | 2020-02-29 16:26 | CCD ---
Author Author [facility] Organization [facility] [place] [facility] Address Unknown Phone Unavailable Care Team Providers Care Marketing Underwriter Name Role Phone Ruma Zavala Unavailable PROBLEMS Type Condition ICD9-CM Code [id number] Code Onset Dates Condition S tatus SNOMED Code Notes Problem Vitamin D deficiency E55.9 Active 78744884 Problem Intervertebral disc disorders with radiculopathy , lumbosacral region M51.17 Active 8508358 Problem Cigarette nicotine dependence without complication F17.210 Active 25026743 Problem Lumbar radicular pain M54.16 Active 34123253 Problem Sacroiliac joint pain M53.3 Active 906686986 Problem Intervertebral disc disorder with radiculopathy of lumbar region M51.16 Active 53325380 Problem Chronic prescription opiate use Z79.891 Active 218145179 Problem Current moderate episode of major depressive disorder without prior episode F32.1 Active 86518991 Problem Macrocytosis D75.89 Active 216143145 Problem Intervertebral disc disorders with radiculopathy , lumbar region M51.16 Active 457235649966082 Problem Abnormal weight loss R63.4 Active 719019516 Problem Major depressive disorder wi th single episode, remission status unspecified F32.9 Active 23711959 Problem Hyperlipidemia E78.5 Active 50923321 Problem Spondylosis of lumbosacral 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 athy or radiculopathy M47.817 Active 82516638 Problem Myalgia M79.1 Active 65517139 Problem Essential hypertension I10 Active 71589174 Problem Neuropathy G62.9 Active 484906052 Problem Pain in right shoulder M25.511 Active 15419829 Problem Pain in left shoulder M25.512 Active 25181126 Problem Myalgia, other site M79.18 Active 11509113 Problem Multiple lung nodules on CT R91.8 Active 4962 88941 Problem Myalgia M79.10 Active 16485851 Problem Chronic prescription opiate use Z79.899 Active 903398796 Problem Chronic obstructive pulmonary disease, unspecified COPD ty pe J44.9 Active 40791008 Problem Pure hypercholesterolemia E78.00 Active 629593 004 Problem Sacroiliitis M46.1 Active 66642167 Problem Panic disorder F41.0 Active 652735851 Problem Other spondylosis, cervical region M47.892 Activ e 2392810 Problem Primary insomnia F51.01 Active 4681012 Problem Other chronic pain G89.29 Active 53008747 Problem Intervertebral disc disorder with radiculopathy of lumbosacral region M51.17 Active 80636478 Problem Low back pain M54.5 Active 123685549 Problem Bilateral sacroiliitis M46.1 Active 077563783 01647437 Problem Tremor of both hands R25.1 Active 818565689 Problem Anxiety F41.9 Active 85992566 ALLERGIES Allergen (clinical drug ingredient) Drug/Non Drug Allergy do cumented on EMR Reaction Allergy Type Onset Date Status duloxetine Cymbalta([facility] Code:[address]-89) chest pain Drug Allergy Active dexamethasone Dexamethasone([facility] Code:[address]-85) erythema Drug A llergy Active Penicillin (For Allergies Use Only) told as a child to not take Drug Allergy Active ENCOUNTERS from 1964 to 2020-02-13 Encounter Location Date Provider Diagnosis [facility] [address] [place] [address] Jan, Reg christine Wetterhahn Anxiety F41.9 ; Primary insomnia F51.01 ; Dyspnea on exertion R06.00 ; Essential hypertension I10 ; Tremor of both hands R25.1 and Chronic obstructive pulmonary disease, unspecified COPD type J44.9 IMMUNIZATIONS Vaccine Route Administration Date Status Influenza [...] College Language: Question Answer Notes Languages spoken: Hebrew Buddhist: Question Answer Notes Buddhist 21 Anglican Sexual Hx: Question Answer Notes Had sex [...] as direct ed Active Vitamin D (Ergocalciferol) 21088 UNIT 1 capsule Orally once a week [...] 2 1/2 for 30 Days Oct, Active Percocet 10-325 MG 1 tablet as needed Orally ev nguyen 6 hrs MDD4 #90 TAB SHOULD LAST 30 DAYS for 30 Days Jan, Not-Joaquin ing Morphine Sulfate 15 MG 1 tablet as needed Orally q8h prn mdd3 fo r 30 Days Jan, Active PROCEDURES No Information RESULTS No Results REASON FOR VISIT 2 week - Telephone Visit MEDICAL (GENERAL) HISTORY Type Description Date Medical History Chronic low back pain - DDD Medical History Right arm pain - biceps tend on rupture - [facility] - s/p surgical repair 2013 with residual [...] BL hand tremor - Per imaging at [facility]-spine x-rays showed severe degenerative changes, MRI showed mild Degenerative changes. F/U MRI pending per Neurosurgery (comp case) - Neuology Dr. 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 Devine) Medical History [...] Clinical Notes Jan, Anxiety (ICD-10 - F41.9) We will continue to wena Diazepam by 1 mg every 2 weeks as we increase Gabpentin by 300 mg every 2 weeks for a total of 600 mg TID - this is per Dr. Devine's recommendations - see previous dose Jan, Primary insomnia (ICD-10 - F51.01) Jan, Dyspnea on exertion (ICD-10 - R06.00) Jan, Essential hypertension (ICD-10 - I10) Jan, Tremor of both hands (ICD-10 - R25.1) He has been on Propranolol since September - could be contributing to increased SOB due to bronchospasm. I will decrease to 20 mg twice a day Jan, Chronic obstructive pulmonar y disease, unspecified COPD type (ICD- 10 - J44.9) He has lots of this neb solution at home But I told the wifeto make appt with pulmonary PLAN OF TREATMENT Medication Medication Name Sig [...] d Inhalation three times a day Jan, Treatment Notes Assessment Notes Clinical Notes Anxiety We will continue to wena Diazepam by 1 mg every 2 weeks as we increase Gabpentin by 300 mg every 2 weeks for a total of 600 mg TID - this is per Dr. Devine's recommendations - see previous dose Tremor of both hands He has been on Prop ranolol since September - could be contributing to increased SOB due to bronchospasm.I will decrease to 20 mg twice a day Chronic obstructive pulmonary disease, unspecified COPD type He has lots of this neb solution at homeBut I told the wifeto make appt with pulmonary Next Appt Details as scheduled Reason: Provider Name:Ruma Zavala, 2020-02 10:30:00 AM, [address], [place], [place], [address], Provider Name:Brigid Poe, 2020-02-24 01 :30:00 PM, [address] [place], [address], Insurance Providers Payer Name Payer Address Payer Phone Insured Name Patient Relati onship to Insured Coverage Start Date Coverage End Date MEDICARE Part A and B [address] [place] [phone] TAMARA MONROY self [facility] PPO [id number] [address] TAMARA MONROY self
--- OUTSIDE RECORDS SUMMARY | 2020-02-29 16:27 | CCD ---
Author Author [facility] Organization [facility] Address Unknown Phone Unavailable Care Team Providers Care Fax Machine Repairer Name Role Phone Ruma Zavala Unavailable PROBLEMS Type Condition ICD9-CM Code QKH21-XA Code Onset Dates Condition S tatus SNOMED Code Notes Problem Major depressive disorder wi th single episode, remission status unspecified F32.9 Active 58026093 Problem Vitamin D deficiency E55.9 Active 10238157 Problem Cigarette nicotine dependence without complication F17.210 Active 63064145 Problem Sacroiliac joint pain M53.3 Active 514321838 Problem Intervertebral disc disorders with radiculopathy , lumbosacral region M51.17 Active 7868073 Problem Chronic prescription opiate use Z79.891 Active 145677841 Problem Lumbar radicular pain M54.16 Active 56929038 Problem Intervertebral disc disorders with radiculopathy , lumbar region M51.16 Active 640746158109999 Problem Abnormal weight loss R63.4 Active 687882220 Problem Myalgia, other site M79.18 Active 99068155 Problem Multiple lung nodules on CT R91.8 Active 4452 93130 Problem Hyperlipidemia E78.5 Active 40857884 Problem Macrocytosis D75.89 Active 624834955 Problem Myalgia M79.1 Active 61500371 Problem Intervertebral disc disorder with radiculopathy of lumbosacral region M51.17 Active 51072225 Problem Neuropathy G62.9 Active 978227748 Problem Spondylosis of lumbosacral 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 athy or radiculopathy M47.817 Active 15837613 Problem Pain in left shoulder M25.512 Active 08261652 Problem Essential hypertension I10 Active 80018276 Problem Myalgia M79.10 Active 00498374 Problem Chronic prescription opiate use Z79.899 Active 236477183 Problem Pain in right shoulder M25.511 Active 94677186 Problem Current moderate episode of major depressive disorder without prior episode F32.1 Active 15931783 Problem Chronic obstructive pulmonary disease, unspecified COPD ty pe J44.9 Active 06681803 Problem Pure hypercholesterolemia E78.00 Active 250832 004 Problem Anxiety F41.9 Active 65799082 Problem Other chronic pain G89.29 Active 71674247 Problem Panic disorder F41.0 Active 868857631 Problem Intervertebral disc disorder with radiculopathy of lumbar region M51.16 Active 70839666 Problem Other spondylosis, cervical region M47.892 Activ e 0478072 Problem Sacroiliitis M46.1 Active 55281909 Problem Low back pain M54.5 Active 611709330 Problem Bilateral sacroiliitis M46.1 Active 207245579 68266979 Problem Tremor of both hands R25.1 Active 521791530 ALLERGIES Allergen (clinical drug ingredient) Drug/Non Drug Allergy do cumented on EMR Reaction Allergy Type Onset Date Status duloxetine Cymbalta([facility] Code:[address]-78) chest pain Drug Allergy Active dexamethasone Dexamethasone([facility] Code:[address]-31) erythema Drug A llergy Active Penicillin (For Allergies Use Only) told as a child to not take Drug Allergy Active ENCOUNTERS from 1965 to 2020-01-21 Encounter Location Date Provider Diagnosis [address] [address] Jan, Ruma Zavala IMMUNIZATIONS Vaccine Route Administration Date Status [...] College Language: Question Answer Notes Languages spoken: Thai Voodoo: Question Answer Notes Voodoo 21 Protestant Sexual Hx: Question Answer Notes Had sex [...] Notes Start Da te End Date Status Sucralfate 1 GM 1 tablet on an empty stomach Orally before each meal for 30 Days Dec, Active Omeprazole 40 MG 1 capsule 30 minutes before morning meal Orally Once a day for 30 day(s) Dec, Active Amitriptyline HCl 25 mg 4 tab Orally Once a day Oct, Active Primidone 250 MG 1/2 tablet Orally Twice a day Active Percocet 10-325 MG 1 tablet as needed Orally ev nguyen 6 hrs MDD4 #90 TAB SHOULD LAST 30 DAYS for 30 Days Dec, Active Multivitamins OTC 1 tablet Orally once a day Active Aspirin 81 MG 1 tablet Orally Once a day for 30 day(s) Active AmLODIPine Besylate 10 MG 1 tablet Orally Once a day Active Propranolol HCl 20 MG 1 tablet Orally tid Active Diazepam 2 MG 1 tab am, 1/2 tab noon, 1 tab pm Orally as direc alex Oct, Active Amlodipine Besylate-Valsartan 5-160 MG 1 tablet Orally Once a day Active Atorvastatin Calcium 40 MG 1 tablet Orally Once a day for 90 day s Mar, Active Gabapentin 300 MG 1 capsuleam, 1 cap noon, 2 caps pm Orally as direct ed Active Spiriva Respimat 1.25 MCG/ACT 2 puffs Inhalation Once a day for 30 days Dec, Active Vitamin D (Ergocalciferol) 38317 UNIT 1 capsule Orally once a week (mondays) for 30 Days Active Morphine Sulfate ER 15 MG 1 tablet Orally every 8 hour s as needed, MDD=3 for 30 Days Jan, Active PROCEDURES No Information RESULTS No Results REASON FOR VISIT ER Visit [facility] 01/15; SOB MEDICAL (GENERAL) HISTORY Type Description Date Medical History Chronic low back pain - DDD Medical History Right arm pain - biceps tend on rupture - [facility] - s/p surgical repair 2013 with residual [...] BL hand tremor - Per imaging at [facility]-spine x-rays showed severe degenerative changes, MRI showed mild Degenerative changes. F/U MRI pending per Neurosurgery (comp case) - Neuology Dr. 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 Devine) Medical History 08/2019 [...] Medication Name Sig Start Date Stop Date Primidone 250 MG 1/2 tablet Orally Twice a day Percocet 10-325 MG 1 tablet as needed Orally ev nguyen 6 hrs MDD4 #90 TAB SHOULD LAST 30 DAYS for 30 Days Dec, Amitriptyline HCl 25 mg 4 tab Orally Once a day Oct, Sucralfate 1 GM 1 tablet on an empty stomach Orally before each meal for 30 Days Dec, Diazepam 2 MG 1 tab am, 1/2 tab noon, 1 tab pm Orally as direc alex Oct, Omeprazole 40 MG 1 capsule 30 minutes before morning meal Orally Once a day for 30 day(s) Dec, Morphine Sulfate ER 15 MG 1 tablet Orally every 8 hour s as needed, MDD=3 for 30 Days Jan, AmLODIPine Besylate 10 MG 1 tablet Orally Once a day Propranolol HCl 20 MG 1 tablet Orally tid Amlodipine Besylate-Valsartan 5-160 MG 1 tablet Orally Once a da y Gabapentin 300 MG 1 capsuleam, 1 cap noon, 2 caps pm Orally as d irected Next Appt Details Provider Name:Ruma Zavala, 2020-01 10:30:00 AM, [address], [place], [address], Provider Name:Kavya Paredes, 2020-01 02:00:00 PM, [address] [place], [address] Provider Name:Ruma Zavala, 2020-02 10:30:00 AM, [address] [place], [address], Provider Name:Brigid Poe, 2020-02-24 01 :30:00 PM, [address] [place], [address], Insurance Providers Payer Name Payer Address Payer Phone Insured Name Patient Relati onship to Insured Coverage Start Date Coverage End Date MEDICARE Part A and B [address] [place] [phone] TAMARA MONROY self [employer] [facility] PPO [id number] [address] TAMARA MONROY self
--- OUTSIDE RECORDS SUMMARY | 2020-02-29 16:27 | CCD ---
Author Author [facility] Organization [facility] Address Unknown Phone Unavailable Care Team Providers Care Feed In Worker Name Role Phone Ruma Zavala Unavailable PROBLEMS Type Condition ICD9-CM Code [id number] Code Onset Dates Condition S tatus SNOMED Code Notes Problem Major depressive disorder wi th single episode, remission status unspecified F32.9 Active 58359245 Problem Vitamin D deficiency E55.9 Active 85556786 Problem Cigarette nicotine dependence without complication F17.210 Active 78253339 Problem Sacroiliac joint pain M53.3 Active 617223310 Problem Intervertebral disc disorders with radiculopathy , lumbosacral region M51.17 Active 8637124 Problem Chronic prescription opiate use Z79.891 Active 369039572 Problem Lumbar radicular pain M54.16 Active 35271620 Problem Intervertebral disc disorders with radiculopathy , lumbar region M51.16 Active 629912920433146 Problem Abnormal weight loss R63.4 Active 354738277 Problem Myalgia, other site M79.18 Active 01619446 Problem Multiple lung nodules on CT R91.8 Active 4452 56487 Problem Hyperlipidemia E78.5 Active 89655896 Problem Macrocytosis D75.89 Active 795490685 Problem Myalgia M79.1 Active 05210965 Problem Intervertebral disc disorder with radiculopathy of lumbosacral region M51.17 Active 14815247 Problem Neuropathy G62.9 Active 230018429 Problem Spondylosis of lumbosacral 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 athy or radiculopathy M47.817 Active 62452875 Problem Pain in left shoulder M25.512 Active 06420680 Problem Essential hypertension I10 Active 34559181 Problem Myalgia M79.10 Active 36379456 Problem Chronic prescription opiate use Z79.899 Active 032982844 Problem Pain in right shoulder M25.511 Active 61151444 Problem Current moderate episode of major depressive disorder without prior episode F32.1 Active 62836624 Problem Chronic obstructive pulmonary disease, unspecified COPD ty pe J44.9 Active 00781710 Problem Pure hypercholesterolemia E78.00 Active 498423 004 Problem Anxiety F41.9 Active 65578007 Problem Other chronic pain G89.29 Active 65039383 Problem Panic disorder F41.0 Active 047673323 Problem Intervertebral disc disorder with radiculopathy of lumbar region M51.16 Active 30893610 Problem Other spondylosis, cervical region M47.892 Activ e 1830141 Problem Sacroiliitis M46.1 Active 74602776 Problem Low back pain M54.5 Active 984908912 Problem Bilateral sacroiliitis M46.1 Active 758931321 73731821 Problem Tremor of both hands R25.1 Active 536022679 ALLERGIES Allergen (clinical drug ingredient) Drug/Non Drug Allergy do cumented on EMR Reaction Allergy Type Onset Date Status duloxetine Cymbalta([facility] Code:[address]-26) chest pain Drug Allergy Active dexamethasone Dexamethasone([facility] Code:[address]-19) erythema Drug A llergy Active Penicillin (For Allergies Use Only) told as a child to not take Drug Allergy Active ENCOUNTERS from 1964 to 2020-01-23 Encounter Location Date Provider Diagnosis [address] [place] [address] Jan, Reg christine Zavala IMMUNIZATIONS Vaccine Route Administration [...] College Language: Question Answer Notes Languages spoken: Romanian Hoahaoism: Question Answer Notes Hoahaoism 21 Hoahaoism Sexual Hx: Question Answer Notes Had sex [...] tab Orally Once a day Oct, Active Multivitamins OTC 1 tablet Orally once a day Active Spiriva Respimat 1.25 MCG/ACT 2 puffs Inhalation Once a day for 30 days Dec, Active Aspirin 81 MG 1 tablet Orally Once a day for 30 day(s) Active Diazepam 2 MG 1 tab am, 1/2 tab noon, 1 ta b pm Orally as directed MDD = 2 1/2 for 30 days Oct, Active AmLODIPine Besylate 10 MG 1 tablet Orally Once a day Active Propranolol HCl 20 MG 1 tablet Orally tid Active Primidone 250 MG 1/2 tablet Orally Twice a day Active Amlodipine Besylate-Valsartan 5-160 MG 1 tablet Orally Once a day Active Atorvastatin Calcium 40 MG 1 tablet Orally Once a day for 90 day s Mar, Active Gabapentin 300 MG 1 capsuleam, 1 cap noon, 2 caps pm Orally as direct ed Active Percocet 10-325 MG 1 tablet as needed Orally ev nguyen 6 hrs MDD4 #90 TAB SHOULD LAST 30 DAYS for 30 Days Jan, Active Vitamin D (Ergocalciferol) 97254 UNIT 1 capsule Orally once a week (mondays) for 30 Days Active Morphine Sulfate ER 15 MG 1 tablet Orally every 8 hour s as needed, MDD=3 for 30 Days Jan, Active PROCEDURES No Information RESULTS No Results REASON FOR VISIT controlled early refill MEDICAL (GENERAL) HISTORY Type Description Date Medical History Chronic low back pain - DDD Medical History Right arm pain - biceps tend on rupture - [facility] Ortho - s/p surgical repair 2013 [...] BL hand tremor - Per imaging at [facility]-spine x-rays showed severe degenerative changes, MRI showed mild Degenerative changes. F/U MRI pending per Neurosurgery (comp case) - Neuology Dr. 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 Devine) Medical History 08/2019 [...] Medication Name Sig Start Date Stop Date Diazepam 2 MG 1 tab am, 1/2 tab noon, 1 ta b pm Orally as directed MDD = 2 1/2 for 30 days Oct, Percocet 10-325 MG 1 tablet as needed Orally ev nguyen 6 hrs MDD4 #90 TAB SHOULD LAST 30 DAYS for 30 Days Jan, Amitriptyline HCl 25 mg 4 tab Orally Once a day 25 Oct, 2017 Sucralfate 1 GM 1 tablet on an empty stomach Orally before each meal for 30 Days Dec, Primidone 250 MG 1/2 tablet Orally Twice a day Omeprazole 40 MG 1 capsule 30 minutes [...] Details Provider Name:Ruma Zavala, 2020-01 10:30:00 AM, [address] , [place], [address], Provider Name:Kavya Paredes, 2020-01 02:00:00 PM, [address] , [place], [address] Provider Name:Ruma Zavala, 2020-02 10:30:00 AM, [address] , [place], [address], Provider Name:Brigid Poe, 2020-02-24 01 :30:00 PM, [address] [place] [address], [address], Insurance Providers Payer Name Payer Address Payer Phone Insured Name Patient Relati onship to Insured Coverage Start Date Coverage End Date [facility] [phone] [address] TAMARA MONROY self MEDICARE Part A and B [address] [place] [phone] TAMARA MONROY self
--- OUTSIDE RECORDS SUMMARY | 2020-02-29 16:27 | CCD ---
Author Author [facility] Organization [facility] Address Unknown Phone Unavailable Care Team Providers Care Kiln Fireman Name Role Phone Ruma Zavala Unavailable PROBLEMS Type Condition ICD9-CM Code [id number] Code Onset Dates Condition S tatus SNOMED Code Notes Problem Major depressive disorder wi th single episode, remission status unspecified F32.9 Active 14531363 Problem Vitamin D deficiency E55.9 Active 76195039 Problem Cigarette nicotine dependence without complication F17.210 Active 42022653 Problem Sacroiliac joint pain M53.3 Active 842388056 Problem Intervertebral disc disorders with radiculopathy , lumbosacral region M51.17 Active 4027319 Problem Chronic prescription opiate use Z79.891 Active 736024256 Problem Lumbar radicular pain M54.16 Active 40915936 Problem Intervertebral disc disorders with radiculopathy , lumbar region M51.16 Active 094044835090807 Problem Abnormal weight loss R63.4 Active 181152167 Problem Myalgia, other site M79.18 Active 62396961 Problem Multiple lung nodules on CT R91.8 Active 4452 03701 Problem Hyperlipidemia E78.5 Active 41006838 Problem Macrocytosis D75.89 Active 257207308 Problem Myalgia M79.1 Active 79810945 Problem Intervertebral disc disorder with radiculopathy of lumbosacral region M51.17 Active 18523811 Problem Neuropathy G62.9 Active 432747904 Problem Spondylosis of lumbosacral 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 athy or radiculopathy M47.817 Active 97196894 Problem Pain in left shoulder M25.512 Active 83071963 Problem Essential hypertension I10 Active 82666556 Problem Myalgia M79.10 Active 33314564 Problem Chronic prescription opiate use Z79.899 Active 821254179 Problem Pain in right shoulder M25.511 Active 95374036 Problem Current moderate episode of major depressive disorder without prior episode F32.1 Active 94313088 Problem Chronic obstructive pulmonary disease, unspecified COPD ty pe J44.9 Active 26308771 Problem Pure hypercholesterolemia E78.00 Active 936418 004 Problem Anxiety F41.9 Active 00831433 Problem Other chronic pain G89.29 Active 58894894 Problem Panic disorder F41.0 Active 718920759 Problem Intervertebral disc disorder with radiculopathy of lumbar region M51.16 Active 90740901 Problem Other spondylosis, cervical region M47.892 Activ e 9316256 Problem Sacroiliitis M46.1 Active 89582254 Problem Low back pain M54.5 Active 380507791 Problem Bilateral sacroiliitis M46.1 Active 625250728 68322739 Problem Tremor of both hands R25.1 Active 798552423 ALLERGIES Allergen (clinical drug ingredient) Drug/Non Drug Allergy do cumented on EMR Reaction Allergy Type Onset Date Status duloxetine Cymbalta([facility] Code:[address]-60) chest pain Drug Allergy Active dexamethasone Dexamethasone([facility] Code:[address]-27) erythema Drug A llergy Active Penicillin (For Allergies Use Only) told as a child to not take Drug Allergy Active ENCOUNTERS from 1965 to 2020-01-16 Encounter Location Date Provider Diagnosis [address] [place] [address] Jan, Reg christine Zavala IMMUNIZATIONS Vaccine Route [...] College Language: Question Answer Notes Languages spoken: Croatian Pentecostalism: Question Answer Notes Pentecostalism 21 Protestant Sexual Hx: Question Answer Notes [...] a day for 30 day(s) Dec, Active Sucralfate 1 GM 1 tablet on an empty stomach Orally before each meal for 30 Days Dec, Active Morphine Sulfate ER 15 MG (Schedule II Drug) TAKE ONE TABLET BY MOUTH EVERY 8 HOURS THREE TIMES A DAY MAXIMUM DAILY DOSE 3 TABLETS Oral Active Vitamin D (Ergocalciferol) 21355 UNIT 1 capsule Orally once a week (mondays) for 30 Days Active Multivitamins OTC 1 tablet Orally once a day Active Primidone 250 MG 1/2 tablet Orally Twice a day Active Aspirin 81 MG 1 tablet Orally Once a day for 30 day(s) Active AmLODIPine Besylate 10 MG 1 tablet Orally Once a day Active Propranolol HCl 20 MG 1 tablet Orally tid Active Atorvastatin Calcium 40 MG 1 tablet Orally Once a day for 90 day s Mar, Active Amlodipine Besylate-Valsartan 5-160 MG 1 tablet Orally Once a day Active Amitriptyline HCl 25 mg 4 tab Orally Once a day Oct, Active Gabapentin 300 MG 1 capsuleam, 1 cap noon, 2 caps pm Orally as direct ed Active Spiriva Respimat 1.25 MCG/ACT 2 puffs Inhalation Once a day for 30 days Dec, Active Percocet 10-325 MG 1 tablet as needed Orally ev nguyen 6 hrs MDD4 #90 TAB SHOULD LAST 30 DAYS Dec, Active Diazepam 2 MG 1 tab am, 1/2 tab noon, 1 tab pm Orally as direc alex Oct, Active PROCEDURES No Information RESULTS No Results REASON FOR VISIT darianaloksana MEDICAL (GENERAL) HISTORY Type Description Date Medical History Chronic low back pain - DDD Medical History Right arm pain - biceps tend on rupture - [facility] Ortho - s/p surgical repair [...] BL hand tremor - Per imaging at [facility] - C-spine x-rays showed severe degenerative changes, MRI showed mild Degenerative changes. F/U MRI pending per Neurosurgery (comp case) - Neuology Dr. 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 Devine) Medical History 08/2019 - Echo - NormalLV si ze and systolic function, Normal diastolic function, Elevated pul central pressure Surgical History Bicep-Rt side 2015 Surgical History rotator cuff tear repair-left 02/2017 Surgical History Colonoscopy 2016 Surgical History Right rotator cuff repair- RIGHT 06/2018 Hospitalization History sees above- SURGERIES Hospitalization History Hyponatremia 09/2019 Goals Section No Information Health Concerns No Information MEDICAL EQUIPMENT No Information MENTAL STATUS No Information FUNCTIONAL STATUS No Information ASSESSMENTS No Information PLAN OF TREATMENT Medication Medication Name Sig Start Date Stop Date Percocet 10-325 MG 1 tablet as needed Orally ev nguyen 6 hrs MDD4 #90 TAB SHOULD LAST 30 DAYS Dec, Primidone 250 MG 1/2 tablet Orally Twice a day Morphine Sulfate ER 15 MG (Schedule II Drug) TAKE ONE TABLET BY MOUTH EVERY 8 HOURS THREE TIMES A DAY MAXIMUM DAILY DOSE 3 TABLETS Oral Omeprazole 40 MG 1 capsule 30 minutes before morning meal Orally Once a day for 30 day(s) Dec, Amitriptyline HCl 25 mg 4 tab Orally Once a day Oct, Sucralfate 1 GM 1 tablet on an empty stomach Orally before each meal for 30 Days Dec, Diazepam 2 MG 1 tab am, 1/2 tab noon, 1 tab pm Orally as direc alex Oct, AmLODIPine Besylate 10 MG 1 tablet Orally Once a day Propranolol HCl 20 MG 1 tablet Orally tid Amlodipine Besylate-Valsartan 5-160 MG 1 tablet Orally Once a da y Gabapentin 300 MG 1 capsuleam, 1 cap noon, 2 caps pm Orally as d irected Next Appt Details Provider Name:Kavya Paredes, 2020-01 01:00:00 PM, [address] , [place], [address] Provider Name:Ruma Zavala, 2020-01 10:30:00 AM, [address] , [place], [address], Provider Name:Brigid Poe, 2020-02-24 01 :30:00 PM, [address] [place] [address], [address], Insurance Providers Payer Name Payer Address Payer Phone Insured Name Patient Relati onship to Insured Coverage Start Date Coverage End Date [employer] PPO [id number] [address] TAMARA MONROY self MEDICARE Part A and B [address] [place] [phone] TAMARA MONROY
--- OUTSIDE RECORDS SUMMARY | 2020-02-29 16:27 | CCD ---
Author Author [facility] Organization [facility] Address Unknown Phone Unavailable Care Team Providers Care Fluorescent Solution Mixer Name Role Phone Ruma Zavala Unavailable PROBLEMS Type Condition ICD9-CM Code [id number] Code Onset Dates Condition S tatus SNOMED Code Notes Problem Major depressive disorder wi th single episode, remission status unspecified F32.9 Active 81029754 Problem Vitamin D deficiency E55.9 Active 76550605 Problem Cigarette nicotine dependence without complication F17.210 Active 66950174 Problem Sacroiliac joint pain M53.3 Active 835676398 Problem Intervertebral disc disorders with radiculopathy , lumbosacral region M51.17 Active 3870345 Problem Chronic prescription opiate use Z79.891 Active 170160059 Problem Lumbar radicular pain M54.16 Active 96605161 Problem Intervertebral disc disorders with radiculopathy , lumbar region M51.16 Active 342668121264871 Problem Abnormal weight loss R63.4 Active 261466517 Problem Myalgia, other site M79.18 Active 57889040 Problem Multiple lung nodules on CT R91.8 Active 4452 29511 Problem Hyperlipidemia E78.5 Active 52605418 Problem Macrocytosis D75.89 Active 560419486 Problem Myalgia M79.1 Active 64247001 Problem Intervertebral disc disorder with radiculopathy of lumbosacral region M51.17 Active 41365692 Problem Neuropathy G62.9 Active 133438842 Problem Spondylosis of lumbosacral 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 athy or radiculopathy M47.817 Active 57127269 Problem Pain in left shoulder M25.512 Active 12503442 Problem Essential hypertension I10 Active 90351791 Problem Myalgia M79.10 Active 35573199 Problem Chronic prescription opiate use Z79.899 Active 658706036 Problem Pain in right shoulder M25.511 Active 30996754 Problem Current moderate episode of major depressive disorder without prior episode F32.1 Active 50674161 Problem Chronic obstructive pulmonary disease, unspecified COPD ty pe J44.9 Active 07011668 Problem Pure hypercholesterolemia E78.00 Active 177362 004 Problem Anxiety F41.9 Active 72330135 Problem Other chronic pain G89.29 Active 61397328 Problem Panic disorder F41.0 Active 124454114 Problem Intervertebral disc disorder with radiculopathy of lumbar region M51.16 Active 21678253 Problem Other spondylosis, cervical region M47.892 Activ e 3165783 Problem Sacroiliitis M46.1 Active 94307224 Problem Low back pain M54.5 Active 772364447 Problem Bilateral sacroiliitis M46.1 Active 499825045 68344383 Problem Tremor of both hands R25.1 Active 785384218 ALLERGIES Allergen (clinical drug ingredient) Drug/Non Drug Allergy do cumented on EMR Reaction Allergy Type Onset Date Status duloxetine Cymbalta([facility] Code:[address]-64) chest pain Drug Allergy Active dexamethasone Dexamethasone([facility] Code:[address]-90) erythema Drug A llergy Active Penicillin (For Allergies Use Only) told as a child to not take Drug Allergy Active ENCOUNTERS from 1965 to 2020-01-26 Encounter Location Date Provider Diagnosis [address] [address] Jan, Ruma Zavala IMMUNIZATIONS Vaccine Route Administration [...] College Language: Question Answer Notes Languages spoken: Yi Mu-Ism: Question Answer Notes Mu-Ism 21 Confucianism Sexual Hx: Question Answer Notes Had sex [...] 1/2 tablet Orally Twice a day Active Spiriva Respimat 1.25 MCG/ACT 2 puffs Inhalation Once a day for 30 days Dec, Active Multivitamins OTC 1 tablet Orally once a day Active Diazepam 2 MG 1 tab am, 1/2 tab noon, 1 ta b pm Orally as directed MDD = 2 1/2 for 30 days Oct, Active AmLODIPine Besylate 10 MG 1 tablet Orally Once a day Active Propranolol HCl 20 MG 1 tablet Orally tid Active Vitamin D (Ergocalciferol) 55807 UNIT 1 capsule Orally once a week (mondays) for 30 Days Active Amlodipine Besylate-Valsartan 5-160 MG 1 tablet [...] 30 DAYS for 30 Days Jan, Active Aspirin 81 MG 1 tablet Orally Once a day for 90 days Active Morphine Sulfate ER 15 MG 1 tablet Orally every 8 hour s as needed, MDD=3 for 30 Days Jan, Active PROCEDURES No Information RESULTS No Results REASON FOR VISIT aspirin MEDICAL (GENERAL) HISTORY Type Description Date Medical History Chronic low back pain - DDD Medical History Right arm pain - biceps tend on rupture - [facility] Ortho - s/p surgical repair 2013 with [...] BL hand tremor - Per imaging at [facility]-spine x-rays showed severe degenerative changes, MRI showed mild Degenerative changes. F/U MRI pending per Neurosurgery (comp case) - Neuology Dr. 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 Devine) Medical History 08/2019 - Echo [...] SHOULD LAST 30 DAYS for 30 Days 11 Jan, 2020 Aspirin 81 MG 1 tablet Orally Once a day for 90 days Omeprazole 40 MG 1 capsule 30 minutes before morning meal Orally Once a day for 30 day(s) Dec, Primidone 250 MG 1/2 tablet Orally Twice a day Sucralfate 1 GM 1 tablet on an empty stomach Orally before each meal for 30 Days Dec, Morphine Sulfate ER 15 MG 1 tablet Orally every 8 hour s as needed, MDD=3 for 30 Days Jan, Amlodipine Besylate-Valsartan 5-160 MG 1 tablet Orally Once a da y Propranolol HCl 20 MG 1 tablet Orally tid Amitriptyline HCl 25 mg 4 tab Orally Once a day Oct, Gabapentin 300 MG 1 capsuleam, 1 cap noon, 2 caps pm Orally as d irected AmLODIPine Besylate 10 MG 1 tablet Orally Once a day Next Appt Details Provider Name:Ruma Zavala, 2020-01 10:30:00 AM, [address] , [place], [address], Provider Name:Kavya Paredes, 2020-01 02:00:00 PM, [address] , [place], [address] Provider Name:Ruma Zavala, 2020-02 10:30:00 AM, [address] , [place], [address], Provider Name:Brigid Poe, 2020-02-24 01 :30:00 PM, [address] [place], [address], Insurance Providers Payer Name Payer Address Payer Phone Insured Name Patient Relati onship to Insured Coverage Start Date Coverage End Date MEDICARE Part A and B [address] [place] [phone] TAMARA MONROY self [employer] PPO [id number] [address] TAMARA MONROY self
--- OUTSIDE RECORDS SUMMARY | 2020-02-29 16:27 | CCD ---
Author Author [facility] Organization [facility] Address Unknown Phone Unavailable Care Team Providers Care Dynamics Ax Technical Architect Name Role Phone Ruma Zavala Unavailable PROBLEMS Type Condition ICD9-CM Code DYN39-YL Code Onset Dates Condition S tatus SNOMED Code Notes Problem Major depressive disorder wi th single episode, remission status unspecified F32.9 Active 78410151 Problem Vitamin D deficiency E55.9 Active 81339353 Problem Cigarette nicotine dependence without complication F17.210 Active 74185115 Problem Sacroiliac joint pain M53.3 Active 433355927 Problem Intervertebral disc disorders with radiculopathy , lumbosacral region M51.17 Active 9146581 Problem Chronic prescription opiate use Z79.891 Active 937908762 Problem Lumbar radicular pain M54.16 Active 54828743 Problem Intervertebral disc disorders with radiculopathy , lumbar region M51.16 Active 461735462384406 Problem Abnormal weight loss R63.4 Active 456477182 Problem Myalgia, other site M79.18 Active 84897306 Problem Multiple lung nodules on CT R91.8 Active 4452 15292 Problem Hyperlipidemia E78.5 Active 52552005 Problem Macrocytosis D75.89 Active 353931551 Problem Myalgia M79.1 Active 72516547 Problem Intervertebral disc disorder with radiculopathy of lumbosacral region M51.17 Active 54634310 Problem Neuropathy G62.9 Active 504608608 Problem Spondylosis of lumbosacral 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 athy or radiculopathy M47.817 Active 27146204 Problem Pain in left shoulder M25.512 Active 29643639 Problem Essential hypertension I10 Active 36939079 Problem Myalgia M79.10 Active 77839224 Problem Chronic prescription opiate use Z79.899 Active 668308727 Problem Pain in right shoulder M25.511 Active 19000277 Problem Current moderate episode of major depressive disorder without prior episode F32.1 Active 02877368 Problem Chronic obstructive pulmonary disease, unspecified COPD ty pe J44.9 Active 34422976 Problem Pure hypercholesterolemia E78.00 Active 626425 004 Problem Anxiety F41.9 Active 70548771 Problem Other chronic pain G89.29 Active 73855962 Problem Panic disorder F41.0 Active 504326040 Problem Intervertebral disc disorder with radiculopathy of lumbar region M51.16 Active 03191560 Problem Other spondylosis, cervical region M47.892 Activ e 8376115 Problem Sacroiliitis M46.1 Active 53785492 Problem Low back pain M54.5 Active 318546573 Problem Bilateral sacroiliitis M46.1 Active 077005908 02424334 Problem Tremor of both hands R25.1 Active 379696254 ALLERGIES Allergen (clinical drug ingredient) Drug/Non Drug Allergy do cumented on EMR Reaction Allergy Type Onset Date Status duloxetine Cymbalta(ND Code:[address]-26) chest pain Drug Allergy Active dexamethasone Dexamethasone(NDC Code:[address]-82) erythema Drug A llergy Active Penicillin (For Allergies Use Only) told as a child to not take Drug Allergy Active ENCOUNTERS from 1964 to 2020-01-23 Encounter Location Date Provider Diagnosis [address] [place] [address] Jan, Reg christine Ahsanhahn Anxiety F41.9 IMMUNIZATIONS Vaccine Route Administration Date [...] College Language: Question Answer Notes Languages spoken: Icelandic Yarsani: Question Answer Notes Yarsani 21 Advent Sexual Hx: Question Answer Notes Had sex [...] 30 Days Jan, Active Vitamin D (Ergocalciferol) 70508 UNIT 1 capsule Orally once a week (mondays) for 30 Days Active Morphine Sulfate ER 15 MG 1 tablet Orally every 8 hour s as needed, MDD=3 for 30 Days Jan, Active PROCEDURES No Information RESULTS No Results REASON FOR VISIT diazepam MEDICAL (GENERAL) HISTORY Type Description Date Medical History Chronic low back pain - DDD Medical History Right arm pain - biceps tend on rupture - [facility] - s/p surgical repair 2013 with residual [...] BL hand tremor - Per imaging at [facility]-spine x-rays showed severe degenerative changes, MRI [...] Details Provider Name:Ruma Zavala, 2020-01 10:30:00 AM, [address] , [place], [address], Provider Name:Kavya Paredes, 2020-01 02:00:00 PM, [address] , [place], [address] Provider Name:Ruma Zavala, 2020-02 10:30:00 AM, [address], [place], [address], Provider Name:Brigid Poe, 2020-02-24 01 :30:00 PM, [address] [place] [address], [phone], Insurance Providers Payer Name Payer Address Payer Phone Insured Name Patient Relati onship to Insured Coverage Start Date Coverage End Date MEDICARE Part A and B [address] [facility] [address] TAMARA MONROY self [employer] PPO [id number] [address] TAMARA MONROY self
--- OUTSIDE RECORDS SUMMARY | 2020-02-29 16:27 | CCD ---
Author Author [facility] Organization [facility] Address Unknown Phone Unavailable Care Team Providers Care Jig Builder Helper Name Role Phone Ruma Zavala Unavailable PROBLEMS Type Condition ICD9-CM Code HPU10-SZ Code Onset Dates Condition S tatus SNOMED Code Notes Problem Major depressive disorder wi th single episode, remission status unspecified F32.9 Active 99395711 Problem Vitamin D deficiency E55.9 Active 33877838 Problem Cigarette nicotine dependence without complication F17.210 Active 71074269 Problem Sacroiliac joint pain M53.3 Active 935774253 Problem Intervertebral disc disorders with radiculopathy , lumbosacral region M51.17 Active 1044809 Problem Chronic prescription opiate use Z79.891 Active 060812624 Problem Lumbar radicular pain M54.16 Active 80592734 Problem Intervertebral disc disorders with radiculopathy , lumbar region M51.16 Active 045512194835092 Problem Abnormal weight loss R63.4 Active 103841665 Problem Myalgia, other site M79.18 Active 17859250 Problem Multiple lung nodules on CT R91.8 Active 4452 70632 Problem Hyperlipidemia E78.5 Active 14304614 Problem Macrocytosis D75.89 Active 483746606 Problem Myalgia M79.1 Active 49242612 Problem Intervertebral disc disorder with radiculopathy of lumbosacral region M51.17 Active 35780397 Problem Neuropathy G62.9 Active 147104127 Problem Spondylosis of lumbosacral 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 athy or radiculopathy M47.817 Active 38548980 Problem Pain in left shoulder M25.512 Active 01202078 Problem Essential hypertension I10 Active 66056408 Problem Myalgia M79.10 Active 32757234 Problem Chronic prescription opiate use Z79.899 Active 684608917 Problem Pain in right shoulder M25.511 Active 85023537 Problem Current moderate episode of major depressive disorder without prior episode F32.1 Active 73995690 Problem Chronic obstructive pulmonary disease, unspecified COPD ty pe J44.9 Active 29082927 Problem Pure hypercholesterolemia E78.00 Active 884432 004 Problem Anxiety F41.9 Active 49008756 Problem Other chronic pain G89.29 Active 41046169 Problem Panic disorder F41.0 Active 063814000 Problem Intervertebral disc disorder with radiculopathy of lumbar region M51.16 Active 85791859 Problem Other spondylosis, cervical region M47.892 Activ e 0368445 Problem Sacroiliitis M46.1 Active 14067443 Problem Low back pain M54.5 Active 159314562 Problem Bilateral sacroiliitis M46.1 Active 898521642 77152623 Problem Tremor of both hands R25.1 Active 984538065 ALLERGIES Allergen (clinical drug ingredient) Drug/Non Drug Allergy do cumented on EMR Reaction Allergy Type Onset Date Status duloxetine Cymbalta(ND Code:[address]-84) chest pain Drug Allergy Active dexamethasone Dexamethasone(NDC Code:[address]-48) erythema Drug A llergy Active Penicillin (For Allergies Use Only) told as a child to not take Drug Allergy Active ENCOUNTERS from 1965 to 2020-01-25 Encounter Location Date Provider Diagnosis [address] [place] [address] Jan, Reg christine Lucas Anxiety F41.9 ; Intervertebral disc disorders with radiculopathy, lumbar region M51.16 ; Pain in right shoulder M25.511 ; Myalgia M79.10 ; Essential hypertension I10 ; Tremor of both hands R25.1 and Encounter for immunization Z23 IMMUNIZATIONS Vaccine Route Administration Date Status Influenza [...] College Language: Question Answer Notes Languages spoken: Bengali Orthodox: Question Answer Notes Orthodox 21 Catholic Sexual Hx: Question Answer Notes Had sex [...] REASON FOR REFERRAL No Information VITAL SIGNS Weight 156 lbs Jan, Height 69 in Jan, BMI 23.03 kg/m2 Jan, Heart Rate 102 /min Jan, Respiratory Rate 18 /min Jan, Temperature 97.5 degrees Fahrenheit Jan, Oximetry 96 Jan, Blood pressure systolic 130 mm Hg Jan, Blood pressure diastolic 84 mm Hg Jan, MEDICATIONS Medication SIG (Take, Route, Frequency, Duration) Notes Start Da te End Date Status Sucralfate 1 GM 1 tablet on an empty stomach Orally before each meal for 30 Days Dec, Active Omeprazole 40 MG 1 capsule 30 minutes before morning meal Orally Once a day for 30 day(s) Dec, Active Atorvastatin Calcium 40 MG 1 tablet Orally Once a day for 90 day s Mar, Active Morphine Sulfate ER 15 MG 1 tablet Orally every 8 hour s as needed, MDD=3 for 30 Days Jan, Active Spiriva Respimat 1.25 MCG/ACT 2 puffs Inhalation Once a day for 30 days Dec, Active Aspirin 81 MG 1 tablet Orally Once a day for 30 day(s) Active Diazepam 2 MG 1 tab am, 1/2 tab noon, 1 ta b pm Orally as directed MDD = 2 1/2 for 30 days Oct, Active Propranolol HCl 20 MG 1 tablet Orally tid Active Amitriptyline HCl 25 mg 4 tab Orally Once a day 25 Oct, Active Multivitamins OTC 1 tablet Orally once a day Active Gabapentin 300 MG 1 capsuleam, 1 cap noon, 2 caps pm Orally as direct ed Active Vitamin D (Ergocalciferol) 21147 UNIT 1 capsule Orally once a week (mondays) for 30 Days Active AmLODIPine Besylate 10 MG 1 tablet Orally Once a day Active Percocet 10-325 MG 1 tablet as needed Orally ev nguyen 6 hrs MDD4 #90 TAB SHOULD LAST 30 DAYS for 30 Days Jan, Active Primidone 250 MG 1/2 tablet Orally Twice a day Active Amlodipine Besylate-Valsartan 5-160 MG 1 tablet Orally Once a day Active PROCEDURES from 1964 to 2020-01-25 Procedure Date Ordered Result Body Site Immunization: Flublok Quadrivalent (18 years & older) 0.5mL IM (Influenza) 2020-01-15 N/A RESULTS No Results REASON FOR VISIT ED visit [facility] D/C 12/30;[id number] General Medical Comp MEDICAL (GENERAL) HISTORY Type Description Date Medical History Chronic low back pain - DDD Medical History Right arm pain - biceps tend on rupture - [facility] - s/p surgical repair 2013 with [...] BL hand tremor - Per imaging at [facility]-spine x-rays showed severe degenerative changes, MRI showed mild Degenerative changes. F/U MRI pending per Neurosurgery (comp case) - Neuology Dr. 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 Devine) Medical History 08/2019 [...] Clinical Notes Jan, Anxiety (ICD-10 - F41.9) I spoke with Dr. Devine (psychiatry) - He recommends weaning off Cymbalta due to potential excess SSRI affect He has increased the Amitriptyline to 4 tabs daily in an effort to improve sleep and improve Neuropathic pain control He recommends weaning off Diazepam by 1 mg every 2 weeks while increasing Gabapentin by 300 mg every 2 weeks up to 600 mg TID. He see Dr. Devine again 01/26Jan, Intervertebral disc disorder s with radiculopathy, lumbar region (ICD-10 - M51.16) Pain meds abover are all per Pain Clinic Jan, Pain in right shoulder (ICD-10 - M25.511) Jan, Myalgia (ICD-10 - M79.10) Jan, Essential hypertension (ICD-10 - I10) He has an appt with Nephrology Saturday - He will clarify the BP meds to make sure he is supposed to be on such a high dose of amlodipine Jan, Tremor of both hands (ICD-10 - R25.1) Tremor is completely controlled currently on Primidone & Propranolol - per Nephrology Jan, Encounter for immunization (ICD-10 - Z23) PLAN OF TREATMENT Medication Medication Name Sig Start Date Stop Date Diazepam 2 MG 1 tab am, 1/2 tab noon, 1 ta b pm Orally as directed MDD = 2 1/2 for 30 days Oct, Percocet 10-325 MG 1 tablet as needed Orally ev nguyen 6 hrs MDD4 #90 TAB SHOULD LAST 30 DAYS for 30 Days Jan, Primidone 250 MG 1/2 tablet Orally Twice a day Sucralfate 1 GM 1 tablet on an empty stomach Orally before each meal for 30 Days Dec, Morphine Sulfate ER 15 MG 1 tablet Orally every 8 hour s as needed, MDD=3 for 30 Days Jan, Omeprazole 40 MG 1 capsule 30 minutes [...] MG 1 tablet Orally Once a day Treatment Notes Assessment Notes Clinical Notes Anxiety I spoke with Dr. Jose patterson (psychiatry) - He recommends weaning off Cymbalta due to potential excess SSRI affectHe has increased the Amitriptyline to 4 tabs daily in an effort to improve sleep and improve Neuropathic pain controlHe recommends weaning off Diazepam by 1 mg every 2 weeks while increasing Gabapentin by 300 mg every 2 weeks up to [address] Devine again 01/26 Intervertebral disc disorders with radiculopathy, lumbar reg ion Pain meds abover are all per Pain Clinic Essential hypertension He has an appt Nephrology Saturday - He will clarify the BP meds to make sure he is supposed to be on such a high dose of amlodipine Tremor of both hands Tremor is completel y controlled currently on Primidone & Propranolol - per Nephrology Next Appt Details 2 Weeks Reason: Provider Name:Ruma Zavala, 2020-01 10:30:00 AM, [address] [place] [address], [address], Provider Name:Kavya Paredes, 2020-01 02:00:00 PM, [address] [place] [address], [phone] Provider Name:Ruma Zavala, 2020-02 10:30:00 AM, [address] [place] [address], [phone], Provider Name:Brigid Poe, 2020-02-24 01 :30:00 PM, [address] [place] [address], [phone], Insurance Providers Payer Name Payer Address Payer Phone Insured Name Patient Relati onship to Insured Coverage Start Date Coverage End Date [facility] PPO [phone] [address] [place] self MEDICARE Part A and B [address] [facility] [address] [phone] TAMARA MONROY self
--- OUTSIDE RECORDS SUMMARY | 2020-02-29 16:27 | CCD ---
Author Author [facility] Organization [facility] Address Unknown Phone Unavailable Care Team Providers Care Utilization Review Coordinator Name Role Phone Brigid Poe Unavailable PROBLEMS Type Condition ICD9-CM Code BCI75-ZA Code Onset Dates Condition S tatus SNOMED Code Notes Problem Major depressive disorder wi th single episode, remission status unspecified F32.9 Active 42908631 Problem Vitamin D deficiency E55.9 Active 94795436 Problem Cigarette nicotine dependence without complication F17.210 Active 06320258 Problem Sacroiliac joint pain M53.3 Active 503966533 Problem Intervertebral disc disorders with radiculopathy , lumbosacral region M51.17 Active 8239074 Problem Chronic prescription opiate use Z79.891 Active 375142212 Problem Lumbar radicular pain M54.16 Active 92652671 Problem Intervertebral disc disorders with radiculopathy , lumbar region M51.16 Active 910211415872581 Problem Abnormal weight loss R63.4 Active 609851672 Problem Myalgia, other site M79.18 Active 73378641 Problem Multiple lung nodules on CT R91.8 Active 4452 04690 Problem Hyperlipidemia E78.5 Active 60910174 Problem Macrocytosis D75.89 Active 738961440 Problem Myalgia M79.1 Active 88192740 Problem Intervertebral disc disorder with radiculopathy of lumbosacral region M51.17 Active 27353570 Problem Neuropathy G62.9 Active 564505098 Problem Spondylosis of lumbosacral 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 athy or radiculopathy M47.817 Active 43512296 Problem Pain in left shoulder M25.512 Active 92121508 Problem Essential hypertension I10 Active 68469732 Problem Myalgia M79.10 Active 85884277 Problem Chronic prescription opiate use Z79.899 Active 280177185 Problem Pain in right shoulder M25.511 Active 78929044 Problem Current moderate episode of major depressive disorder without prior episode F32.1 Active 33688656 Problem Chronic obstructive pulmonary disease, unspecified COPD ty pe J44.9 Active 66078440 Problem Pure hypercholesterolemia E78.00 Active 787373 004 Problem Anxiety F41.9 Active 85219370 Problem Other chronic pain G89.29 Active 25835324 Problem Panic disorder F41.0 Active 789949947 Problem Intervertebral disc disorder with radiculopathy of lumbar region M51.16 Active 40864786 Problem Other spondylosis, cervical region M47.892 Activ e 8256757 Problem Sacroiliitis M46.1 Active 02892654 Problem Low back pain M54.5 Active 458908042 Problem Bilateral sacroiliitis M46.1 Active 724519864 15656776 Problem Tremor of both hands R25.1 Active 678268251 ALLERGIES Allergen (clinical drug ingredient) Drug/Non Drug Allergy do cumented on EMR Reaction Allergy Type Onset Date Status duloxetine Cymbalta([facility] Code:[address]-51) chest pain Drug Allergy Active dexamethasone Dexamethasone(ND Code:[address]-83) erythema Drug A llergy Active Penicillin (For Allergies Use Only) told as a child to not take Drug Allergy Active ENCOUNTERS from 1964 to 2020-01-22 Encounter Location Date Provider Diagnosis [facility] [address] [place] [address] Jan, Brigid Poe Intervertebral disc disorders with [...] College Language: Question Answer Notes Languages spoken: American Zoroastrian: Question Answer Notes Zoroastrian 21 Protestant Sexual Hx: Question Answer Notes [...] 30 Days Jan, Active Vitamin D (Ergocalciferol) 64652 UNIT 1 capsule Orally once a week (mondays) for 30 Days Active Morphine Sulfate ER 15 MG 1 tablet Orally every 8 hour s as needed, MDD=3 for 30 Days Jan, Active PROCEDURES No Information RESULTS No Results REASON FOR VISIT PERCOCET REFILL MEDICAL (GENERAL) HISTORY Type Description Date Medical History Chronic low back pain - DDD Medical History Right arm pain - biceps tend on rupture - [facility] - s/p surgical repair 2013 with [...] BL hand tremor - Per imaging at [facility]-spine x-rays showed severe degenerative changes, MRI showed mild Degenerative changes. F/U MRI pending per Neurosurgery (comp case) - Neuology Dr. 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 Devine) Medical History [...] Details Provider Name:Ruma Zavala, 2020-01 10:30:00 AM, [address] , [place], [address], Provider Name:Kavya Paredes, 2020-01 02:00:00 PM, [address] , [place], [address] Provider Name:Ruma Zavala, 2020-02 10:30:00 AM, [address] [place] [address], [phone], Provider Name:Brigid Poe, 2020-02-24 01 :30:00 PM, [address] [place] [address], [phone], Insurance Providers Payer Name Payer Address Payer Phone Insured Name Patient Relati onship to Insured Coverage Start Date Coverage End Date [employer] PPO [phone] [address] TAMARA MONROY MEDICARE Part A and B [address] [facility] [address] [phone] TAMARA MONROY self
--- OUTSIDE RECORDS SUMMARY | 2020-02-29 16:27 | CCD ---
Author Author [facility] Organization [facility] Address Unknown Phone Unavailable Care Team Providers Care Brimmer Blocker Name Role Phone Alfredo Hall Unavailable PROBLEMS Type Condition ICD9-CM Code ZYI85-XA Code Onset Dates Condition S tatus SNOMED Code Notes Problem Major depressive disorder wi th single episode, remission status unspecified F32.9 Active 82240635 Problem Vitamin D deficiency E55.9 Active 53909460 Problem Cigarette nicotine dependence without complication F17.210 Active 72095556 Problem Sacroiliac joint pain M53.3 Active 340667211 Problem Intervertebral disc disorders with radiculopathy , lumbosacral region M51.17 Active 2518167 Problem Chronic prescription opiate use Z79.891 Active 755805021 Problem Lumbar radicular pain M54.16 Active 18600159 Problem Intervertebral disc disorders with radiculopathy , lumbar region M51.16 Active 799223999100964 Problem Abnormal weight loss R63.4 Active 593348943 Problem Myalgia, other site M79.18 Active 77907928 Problem Multiple lung nodules on CT R91.8 Active 4452 88196 Problem Hyperlipidemia E78.5 Active 82145923 Problem Macrocytosis D75.89 Active 592752104 Problem Myalgia M79.1 Active 03841244 Problem Intervertebral disc disorder with radiculopathy of lumbosacral region M51.17 Active 46986198 Problem Neuropathy G62.9 Active 347296206 Problem Spondylosis of lumbosacral 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 athy or radiculopathy M47.817 Active 58021606 Problem Pain in left shoulder M25.512 Active 30294425 Problem Essential hypertension I10 Active 37631631 Problem Myalgia M79.10 Active 00138844 Problem Chronic prescription opiate use Z79.899 Active 279309572 Problem Pain in right shoulder M25.511 Active 39955573 Problem Current moderate episode of major depressive disorder without prior episode F32.1 Active 82839607 Problem Chronic obstructive pulmonary disease, unspecified COPD ty pe J44.9 Active 86044086 Problem Pure hypercholesterolemia E78.00 Active 119298 004 Problem Anxiety F41.9 Active 67075643 Problem Other chronic pain G89.29 Active 24950545 Problem Panic disorder F41.0 Active 328762925 Problem Intervertebral disc disorder with radiculopathy of lumbar region M51.16 Active 81643651 Problem Other spondylosis, cervical region M47.892 Activ e 2920270 Problem Sacroiliitis M46.1 Active 45650343 Problem Low back pain M54.5 Active 546859222 Problem Bilateral sacroiliitis M46.1 Active 541775068 45510063 Problem Tremor of both hands R25.1 Active 397525571 ALLERGIES Allergen (clinical drug ingredient) Drug/Non Drug Allergy do cumented on EMR Reaction Allergy Type Onset Date Status duloxetine Cymbalta([facility] Code:[address]-06) chest pain Drug Allergy Active dexamethasone Dexamethasone([facility] Code:[address]-47) erythema Drug A llergy Active Penicillin (For Allergies Use Only) told as a child to not take Drug Allergy Active ENCOUNTERS from 1965 to 2020-01-21 Encounter Location Date Provider Diagnosis [facility] [address] [place] [phone] Jan, Alfredo Hall Intervertebral disc disorders with radic ulopathy, lumbar [...] College Language: Question Answer Notes Languages spoken: Frisian Restorationism: Question Answer Notes Restorationism 21 Yazidi Sexual Hx: Question Answer Notes Had sex [...] 30 days Dec, Active Vitamin D (Ergocalciferol) 41467 UNIT 1 capsule Orally once a week (mondays) for 30 Days Active Morphine Sulfate ER 15 MG 1 tablet Orally every 8 hour s as needed, MDD=3 for 30 Days Jan, Active PROCEDURES No Information RESULTS No Results REASON FOR VISIT MORPHINE REFILL MEDICAL (GENERAL) HISTORY Type Description Date Medical History Chronic low back pain - DDD Medical History Right arm pain - biceps tend on rupture - [facility] - s/p surgical repair 2013 with [...] BL hand tremor - Per imaging at [facility]-spine x-rays showed severe degenerative changes, MRI showed mild Degenerative changes. F/U MRI pending per Neurosurgery (comp case) - Neuology Dr. 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 Devine) Medical History 08/2019 [...] Details Provider Name:Ruma Zavala, 2020-01 10:30:00 AM, [address], [place], [address], Provider Name:Kavya Paredes, 2020-01 02:00:00 PM, [address] , [place], [address] Provider Name:Ruma Zavala, 2020-02 10:30:00 AM, [address], [place], [address], Provider Name:Brigid Poe, 2020-02-24 01 :30:00 PM, [address] [place], [address], Insurance Providers Payer Name Payer Address Payer Phone Insured Name Patient Relati onship to Insured Coverage Start Date Coverage End Date [facility] [id number] [address] TAMARA MONROY MEDICARE Part A and B [address] [facility] [phone] TAMARA MONROY self
--- OUTSIDE RECORDS SUMMARY | 2020-02-29 16:27 | CCD ---
Author Author [facility] Organization [facility] Address Unknown Phone Unavailable Care Team Providers Care Long Term Care Pharmacist Name Role Phone Eric Zavala Unavailable PROBLEMS Type Condition ICD9-CM Code [id number] Code Onset Dates Condition S tatus SNOMED Code Notes Problem Major depressive disorder wi th single episode, remission status unspecified F32.9 Active 63586831 Problem Vitamin D deficiency E55.9 Active 25299591 Problem Cigarette nicotine dependence without complication F17.210 Active 39370630 Problem Sacroiliac joint pain M53.3 Active 315566002 Problem Intervertebral disc disorders with radiculopathy , lumbosacral region M51.17 Active 7840724 Problem Chronic prescription opiate use Z79.891 Active 095168804 Problem Lumbar radicular pain M54.16 Active 00453180 Problem Intervertebral disc disorders with radiculopathy , lumbar region M51.16 Active 119014770509479 Problem Abnormal weight loss R63.4 Active 054187861 Problem Myalgia, other site M79.18 Active 36583024 Problem Multiple lung nodules on CT R91.8 Active 4452 24622 Problem Hyperlipidemia E78.5 Active 94459491 Problem Macrocytosis D75.89 Active 710075843 Problem Myalgia M79.1 Active 78319863 Problem Intervertebral disc disorder with radiculopathy of lumbosacral region M51.17 Active 36723969 Problem Neuropathy G62.9 Active 076162845 Problem Spondylosis of lumbosacral 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 athy or radiculopathy M47.817 Active 85436206 Problem Pain in left shoulder M25.512 Active 15860339 Problem Essential hypertension I10 Active 93392939 Problem Myalgia M79.10 Active 91884453 Problem Chronic prescription opiate use Z79.899 Active 296931015 Problem Pain in right shoulder M25.511 Active 16589862 Problem Current moderate episode of major depressive disorder without prior episode F32.1 Active 95677644 Problem Chronic obstructive pulmonary disease, unspecified COPD ty pe J44.9 Active 09418978 Problem Pure hypercholesterolemia E78.00 Active 844246 004 Problem Anxiety F41.9 Active 08582769 Problem Other chronic pain G89.29 Active 23966250 Problem Panic disorder F41.0 Active 006415447 Problem Intervertebral disc disorder with radiculopathy of lumbar region M51.16 Active 98199773 Problem Other spondylosis, cervical region M47.892 Activ e 8023520 Problem Sacroiliitis M46.1 Active 16715952 Problem Low back pain M54.5 Active 996565211 Problem Bilateral sacroiliitis M46.1 Active 637475061 51571563 Problem Tremor of both hands R25.1 Active 326119461 ALLERGIES Allergen (clinical drug ingredient) Drug/Non Drug Allergy do cumented on EMR Reaction Allergy Type Onset Date Status duloxetine Cymbalta(ND Code:[address]-60) chest pain Drug Allergy Active dexamethasone Dexamethasone(NDC Code:[address]-60) erythema Drug A llergy Active Penicillin (For Allergies Use Only) told as a child to not take Drug Allergy Active ENCOUNTERS from 1964 to 2020-01-20 Encounter Location Date Provider Diagnosis [facility] [address] [place] [address] Jan, Jarvis Schumacherterhahn Esophagitis K20.90 IMMUNIZATIONS Vaccine Route Administration Date Status Influenza [...] College Language: Question Answer Notes Languages spoken: Persian Baptism: Question Answer Notes Baptism 21 Baptism Sexual Hx: Question Answer Notes Had sex [...] a day for 30 day(s) Dec, Active Propranolol HCl 20 MG 1 tablet Orally tid Active Primidone 250 MG 1/2 tablet Orally Twice a day Active Percocet 10-325 MG 1 tablet as needed Orally ev nguyne 6 hrs MDD4 #90 TAB SHOULD LAST 30 DAYS for 30 Days Dec, Active Multivitamins OTC 1 tablet Orally once a day Active Aspirin 81 MG 1 tablet Orally Once a day for 30 day(s) Active Gabapentin 300 MG 1 capsuleam, 1 cap noon, 2 caps pm Orally as direct ed Active AmLODIPine Besylate 10 MG 1 tablet Orally Once a day Active Vitamin D (Ergocalciferol) 77912 UNIT 1 capsule Orally once a week (mondays) for 30 Days Active Diazepam 2 MG 1 tab am, 1/2 tab noon, 1 tab pm Orally as direc alex Oct, Active Amitriptyline HCl 25 mg 4 tab Orally Once a day Oct, Active Amlodipine Besylate-Valsartan 5-160 MG 1 tablet Orally Once a day Active Spiriva Respimat 1.25 MCG/ACT 2 puffs Inhalation Once a day for 30 days Dec, Active Atorvastatin Calcium 40 MG 1 tablet Orally Once a day for 90 day s Mar, Active Morphine Sulfate ER 15 MG 1 tablet Orally every 8 hour s as needed, MDD=3 for 30 Days Jan, Active PROCEDURES No Information RESULTS No Results REASON FOR VISIT CT MEDICAL (GENERAL) HISTORY Type Description Date Medical History Chronic low back pain - DDD Medical History Right arm pain - biceps tend on rupture - [facility] - s/p surgical repair 2013 with [...] BL hand tremor - Per imaging at [facility]-spine x-rays showed severe degenerative changes, MRI showed mild Degenerative changes. F/U MRI pending per Neurosurgery (comp case) - Neuology Dr. 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 Devine) Medical History 08/2019 - [...] Treatment Notes Treatm ent Clinical Notes Jan, Esophagitis (ICD-10 - K20.90) PLAN OF TREATMENT Medication Medication Name Sig Start Date Stop Date Primidone 250 MG 1/2 tablet Orally Twice a day Percocet 10-325 MG 1 tablet as needed Orally ev nguyen 6 hrs MDD4 #90 TAB SHOULD LAST 30 DAYS for 30 Days Dec, Propranolol HCl 20 MG 1 tablet Orally tid Sucralfate 1 GM 1 tablet on an empty stomach Orally before each meal for 30 Days Dec, Amitriptyline HCl 25 mg 4 tab Orally Once a day Oct, Omeprazole 40 MG 1 capsule 30 minutes before morning meal Orally Once a day for 30 day(s) Dec, Morphine Sulfate ER 15 MG 1 tablet Orally every 8 hour s as needed, MDD=3 for 30 Days Jan, Gabapentin 300 MG 1 capsuleam, 1 cap noon, 2 caps pm Orally as d irected AmLODIPine Besylate 10 MG 1 tablet Orally Once a day Diazepam 2 MG 1 tab am, 1/2 tab noon, 1 tab pm Orally as direc alex Oct, Amlodipine Besylate-Valsartan 5-160 MG 1 tablet Orally Once a da y Next Appt Details Provider Name:Ruma Zavala, 2020-01 10:30:00 AM, [address] , [place], [address], Provider Name:Kavya Paredes, 2020-01 02:00:00 PM, [address] [place] [address], [phone] Provider Name:Ruma Zavala, 2020-02 10:30:00 AM, [address] , [place], [address], Provider Name:Brigid Poe, 2020-02-24 01 :30:00 PM, [address] [place], [address], Insurance Providers Payer Name Payer Address Payer Phone Insured Name Patient Relati onship to Insured Coverage Start Date Coverage End Date MEDICARE Part A and B [address] [facility] [phone] TAMARA MONROY [employer] PPO [id number] [address] TAMARA MONROY self
--- OUTSIDE RECORDS SUMMARY | 2020-02-29 16:27 | CCD ---
Author Author [facility] Organization [facility] Address Unknown Phone Unavailable Care Team Providers Care Raised Printer Name Role Phone Ruma Zavala Unavailable PROBLEMS Type Condition ICD9-CM Code [id number] Code Onset Dates Condition S tatus SNOMED Code Notes Problem Major depressive disorder wi th single episode, remission status unspecified F32.9 Active 02892869 Problem Vitamin D deficiency E55.9 Active 90977324 Problem Cigarette nicotine dependence without complication F17.210 Active 00633748 Problem Sacroiliac joint pain M53.3 Active 818854628 Problem Intervertebral disc disorders with radiculopathy , lumbosacral region M51.17 Active 8375242 Problem Chronic prescription opiate use Z79.891 Active 195446171 Problem Lumbar radicular pain M54.16 Active 62053901 Problem Intervertebral disc disorders with radiculopathy , lumbar region M51.16 Active 457676495156385 Problem Abnormal weight loss R63.4 Active 121392606 Problem Myalgia, other site M79.18 Active 71011269 Problem Multiple lung nodules on CT R91.8 Active 4452 85038 Problem Hyperlipidemia E78.5 Active 10929618 Problem Macrocytosis D75.89 Active 662696609 Problem Myalgia M79.1 Active 17006385 Problem Intervertebral disc disorder with radiculopathy of lumbosacral region M51.17 Active 10246762 Problem Neuropathy G62.9 Active 093604704 Problem Spondylosis of lumbosacral 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 athy or radiculopathy M47.817 Active 84212433 Problem Pain in left shoulder M25.512 Active 04962543 Problem Essential hypertension I10 Active 33210726 Problem Myalgia M79.10 Active 65646971 Problem Chronic prescription opiate use Z79.899 Active 330758209 Problem Pain in right shoulder M25.511 Active 14423134 Problem Current moderate episode of major depressive disorder without prior episode F32.1 Active 40566310 Problem Chronic obstructive pulmonary disease, unspecified COPD ty pe J44.9 Active 76712398 Problem Pure hypercholesterolemia E78.00 Active 652441 004 Problem Anxiety F41.9 Active 16332877 Problem Other chronic pain G89.29 Active 15799841 Problem Panic disorder F41.0 Active 036009241 Problem Intervertebral disc disorder with radiculopathy of lumbar region M51.16 Active 22845656 Problem Other spondylosis, cervical region M47.892 Activ e 7645525 Problem Sacroiliitis M46.1 Active 11473180 Problem Low back pain M54.5 Active 188739767 Problem Bilateral sacroiliitis M46.1 Active 375698975 16965631 Problem Tremor of both hands R25.1 Active 379886358 ALLERGIES Allergen (clinical drug ingredient) Drug/Non Drug Allergy do cumented on EMR Reaction Allergy Type Onset Date Status duloxetine Cymbalta(ND Code:[address]-39) chest pain Drug Allergy Active dexamethasone Dexamethasone(NDC Code:[address]-93) erythema Drug A llergy Active Penicillin (For Allergies Use Only) told as a child to not take Drug Allergy Active ENCOUNTERS from 1965 to 2020-01-16 Encounter Location Date Provider Diagnosis [address] [place] [address] Jan, Reg christine Wetterhahn Esophagitis K20.90 IMMUNIZATIONS Vaccine Route Administration Date [...] College Language: Question Answer Notes Languages spoken: Lithuanian Scientologist: Question Answer Notes Scientologist 21 Taoism Sexual Hx: Question Answer Notes Had sex [...] 3 TABLETS Oral Active Vitamin D (Ergocalciferol) 70969 UNIT 1 capsule Orally once a week [...] 1 tab pm Orally as direc alex 29 Oct, 2019 Active PROCEDURES No Information RESULTS No Results REASON FOR VISIT sucrafate,omep MEDICAL (GENERAL) HISTORY Type Description Date Medical History Chronic low back pain - DDD Medical History Right arm pain - biceps tend on rupture - [facility] - s/p surgical repair 2013 with [...] BL hand tremor - Per imaging at [facility]-spine x-rays showed severe degenerative changes, MRI [...] Details Provider Name:Kavya Paredes, 2020-01 01:00:00 PM, [address] , [place], [address] Provider Name:Ruma Zavala, 2020-01 10:30:00 AM, [address] , [place], [address], Provider Name:Brigid Poe, 2020-02-24 01 :30:00 PM, [address] [place] [address], [address], Insurance Providers Payer Name Payer Address Payer Phone Insured Name Patient Relati onship to Insured Coverage Start Date Coverage End Date MEDICARE Part A and B [facility] [address] [place] [phone] TAMARA MONROY [employer] [facility] PPO [id number] [address] TAMARA MONROY self
--- OUTSIDE RECORDS SUMMARY | 2020-02-29 16:28 | CCD ---
Author Author [facility] Organization [facility] Address Unknown Phone Unavailable Care Team Providers Care King Maker Name Role Phone Ruma Zavala Unavailable PROBLEMS Type Condition ICD9-CM Code [id number] Code Onset Dates Condition S tatus SNOMED Code Notes Problem Major depressive disorder wi th single episode, remission status unspecified F32.9 Active 56817537 Problem Vitamin D deficiency E55.9 Active 97059812 Problem Cigarette nicotine dependence without complication F17.210 Active 75937990 Problem Sacroiliac joint pain M53.3 Active 343806759 Problem Intervertebral disc disorders with radiculopathy , lumbosacral region M51.17 Active 7632866 Problem Chronic prescription opiate use Z79.891 Active 482916960 Problem Lumbar radicular pain M54.16 Active 27691212 Problem Intervertebral disc disorders with radiculopathy , lumbar region M51.16 Active 893554264925078 Problem Abnormal weight loss R63.4 Active 815964155 Problem Myalgia, other site M79.18 Active 11521678 Problem Multiple lung nodules on CT R91.8 Active 4452 97896 Problem Hyperlipidemia E78.5 Active 55980078 Problem Macrocytosis D75.89 Active 091619385 Problem Myalgia M79.1 Active 88613098 Problem Intervertebral disc disorder with radiculopathy of lumbosacral region M51.17 Active 47683697 Problem Neuropathy G62.9 Active 241588480 Problem Spondylosis of lumbosacral 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 athy or radiculopathy M47.817 Active 51231927 Problem Pain in left shoulder M25.512 Active 95458321 Problem Essential hypertension I10 Active 96314570 Problem Myalgia M79.10 Active 52809444 Problem Chronic prescription opiate use Z79.899 Active 581543430 Problem Pain in right shoulder M25.511 Active 01289222 Problem Current moderate episode of major depressive disorder without prior episode F32.1 Active 42703987 Problem Chronic obstructive pulmonary disease, unspecified COPD ty pe J44.9 Active 69013104 Problem Pure hypercholesterolemia E78.00 Active 364263 004 Problem Anxiety F41.9 Active 24776634 Problem Other chronic pain G89.29 Active 87979818 Problem Panic disorder F41.0 Active 745747594 Problem Intervertebral disc disorder with radiculopathy of lumbar region M51.16 Active 56962223 Problem Other spondylosis, cervical region M47.892 Activ e 0126652 Problem Sacroiliitis M46.1 Active 34726286 Problem Low back pain M54.5 Active 946532410 Problem Bilateral sacroiliitis M46.1 Active 002422682 90088990 Problem Tremor of both hands R25.1 Active 890772694 ALLERGIES Allergen (clinical drug ingredient) Drug/Non Drug Allergy do cumented on EMR Reaction Allergy Type Onset Date Status duloxetine Cymbalta([facility] Code:[address]-45) chest pain Drug Allergy Active dexamethasone Dexamethasone(ND Code:[address]-47) erythema Drug A llergy Active Penicillin (For Allergies Use Only) told as a child to not take Drug Allergy Active ENCOUNTERS from 1965 to 2020-01-14 Encounter Location Date Provider Diagnosis [address] [place] [address] Jan, Reg christine Lucas IMMUNIZATIONS Vaccine Route Administration Date Status Influenza [...] Language: Question Answer Notes Languages spoken: Yi Anabaptist: Question Answer Notes Anabaptist 21 Moravian Sexual Hx: Question Answer Notes Had sex [...] Notes Start Da te End Date Status Multivitamins OTC 1 tablet Orally once a day Unknown Cymbalta 30 MG 1 capsule Orally twice a day for 30 day(s) Jan, Unknown Omeprazole 40 MG 1 capsule 30 minutes before morning meal Orally Once a day for 30 day(s) Dec, Unknown Cymbalta 30 MG 1 capsule Orally for pain Twice a day for 30 Days Unknown Percocet 10-325 MG 1 tablet as needed Orally ev nguyen 6 hrs MDD4 #90 TAB SHOULD LAST 30 DAYS for 30 Days Dec, Unknown Amitriptyline HCl 25 MG 3 Orally Once a day for 30 Days Oct, Unknown Diazepam 2 MG 1 tab Orally three times danie ly as needed for anxiety, early fill for 30 Days Oct, Unknown Valsartan 80 MG 1 tablet Orally Once a day for 30 day(s) Unknown Vitamin D (Ergocalciferol) 06633 UNIT 1 capsule Orally once a week (mondays) for 30 Days Unknown Gabapentin 300 MG 1 capsule Orally Three times a day for 90 day(s) Unknown Morphine Sulfate ER 15 MG (Schedule II Drug) TAKE ONE TABLET BY MOUTH EVERY 8 HOURS THREE TIMES A DAY MAXIMUM DAILY DOSE 3 TABLETS Oral for 30 Unknown Losartan Potassium 50 MG 2 tablet Orally Once a day Nov Unknown Sucralfate 1 GM 1 tablet on an empty stomach Orally before each meal for 30 day(s) Dec, Unknown Propranolol HCl 20 MG 1 tablet Orally tid Unknown Spiriva Respimat 1.25 MCG/ACT 2 puffs Inhalation Once a day for 30 days Dec, Unknown Spiriva Respimat 2.5 MCG/ACT 2 puffs Inhalation Once a day for 3 0 days Aug, Unknown Atorvastatin Calcium 40 MG 1 tablet Orally Once a day for 90 day s 13 Mar, 2019 Unknown PROCEDURES No Information RESULTS No Results REASON FOR VISIT giovannata MEDICAL (GENERAL) HISTORY Type Description Date Medical History Chronic low back pain - DDD Medical History Right arm pain - biceps tend on rupture - [facility] s/p surgical repair 2013 with residual [...] BL hand tremor - Per imaging at [facility]-spine x-rays showed severe degenerative changes, MRI showed mild Degenerative changes. F/U MRI pending per Neurosurgery (comp case) - Neuology Dr. 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 Devine) Medical History 08/2019 [...] Information ASSESSMENTS No Information PLAN OF TREATMENT Next Appt Details Provider Name:Ruma Zavala, 2020-01 09:30:00 AM, [address] [place] [address], [address], Provider Name:Kavya Paredes, 2020-01 01:00:00 PM, [address] [place] [address], [phone] Provider Name:Brigid Poe, 2020-02-24 01 :30:00 PM, [address] [place], [address], Insurance Providers Payer Name Payer Address Payer Phone Insured Name Patient Relati onship to Insured Coverage Start Date Coverage End Date MEDICARE Part A and B [facility] [address] [place] [phone] TAMARA MONROY [facility] PPO [id number] [address] TAMARA MONROY self
--- OUTSIDE RECORDS SUMMARY | 2020-02-29 16:28 | CCD ---
Author Author [facility] Organization [facility] Address Unknown Phone Unavailable Care Team Providers Care Purler Name Role Phone Brigid Poe Unavailable PROBLEMS Type Condition ICD9-CM Code [id number] Code Onset Dates Condition S tatus SNOMED Code Notes Problem Major depressive disorder wi th single episode, remission status unspecified F32.9 Active 90474800 Problem Vitamin D deficiency E55.9 Active 10321648 Problem Cigarette nicotine dependence without complication F17.210 Active 19553138 Problem Sacroiliac joint pain M53.3 Active 142571387 Problem Intervertebral disc disorders with radiculopathy , lumbosacral region M51.17 Active 3625460 Problem Chronic prescription opiate use Z79.891 Active 038976688 Problem Lumbar radicular pain M54.16 Active 62577933 Problem Intervertebral disc disorders with radiculopathy , lumbar region M51.16 Active 661255771047656 Problem Abnormal weight loss R63.4 Active 228458063 Problem Myalgia, other site M79.18 Active 80996450 Problem Multiple lung nodules on CT R91.8 Active 4452 51577 Problem Hyperlipidemia E78.5 Active 08017853 Problem Macrocytosis D75.89 Active 876149030 Problem Myalgia M79.1 Active 82410449 Problem Intervertebral disc disorder with radiculopathy of lumbosacral region M51.17 Active 30734282 Problem Neuropathy G62.9 Active 362035523 Problem Spondylosis of lumbosacral 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 athy or radiculopathy M47.817 Active 59817313 Problem Pain in left shoulder M25.512 Active 41830698 Problem Essential hypertension I10 Active 12944988 Problem Myalgia M79.10 Active 91435015 Problem Chronic prescription opiate use Z79.899 Active 298877280 Problem Pain in right shoulder M25.511 Active 24344533 Problem Current moderate episode of major depressive disorder without prior episode F32.1 Active 43579220 Problem Chronic obstructive pulmonary disease, unspecified COPD ty pe J44.9 Active 55445137 Problem Pure hypercholesterolemia E78.00 Active 740293 004 Problem Anxiety F41.9 Active 53643097 Problem Other chronic pain G89.29 Active 89570378 Problem Panic disorder F41.0 Active 348322192 Problem Intervertebral disc disorder with radiculopathy of lumbar region M51.16 Active 34790773 Problem Other spondylosis, cervical region M47.892 Activ e 1106908 Problem Sacroiliitis M46.1 Active 89235443 Problem Low back pain M54.5 Active 962425148 Problem Bilateral sacroiliitis M46.1 Active 754785983 72646803 Problem Tremor of both hands R25.1 Active 795993878 ALLERGIES Allergen (clinical drug ingredient) Drug/Non Drug Allergy do cumented on EMR Reaction Allergy Type Onset Date Status duloxetine Cymbalta([facility] Code:[address]-32) chest pain Drug Allergy Active dexamethasone Dexamethasone(ND Code:[address]-20) erythema Drug A llergy Active Penicillin (For Allergies Use Only) told as a child to not take Drug Allergy Active ENCOUNTERS from 1965 to 2020-01-14 Encounter Location Date Provider Diagnosis [facility] [address] [place] [address] Jan, Brigid Poe Intervertebral disc disorders with radic ulopathy, lumbosacral region M51.17 IMMUNIZATIONS Vaccine Route Administration Date Status Influenza [...] College Language: Question Answer Notes Languages spoken: Estonian Nondenominational: Question Answer Notes Nondenominational 21 Christianity Sexual Hx: Question Answer Notes [...] for 30 day(s) Unknown Vitamin D (Ergocalciferol) 77498 UNIT 1 capsule Orally once a week [...] day for 30 days 17 Dec, 2019 Unknown Spiriva Respimat 2.5 MCG/ACT 2 puffs Inhalation Once a day for 3 0 days Aug, Unknown Atorvastatin Calcium 40 MG 1 tablet Orally Once a day for 90 day s 13 Mar, 2019 Unknown PROCEDURES No Information RESULTS No Results [facility] MED[facility] (GENERAL) HISTORY Type Description Date Medical History Chronic low back pain - DDD Medical History Right arm pain - biceps tend on rupture - [facility] - s/p surgical repair 2013 with [...] BL hand tremor - Per imaging at [facility]-spine x-rays showed severe degenerative changes, MRI showed mild Degenerative changes. F/U MRI pending per Neurosurgery (comp case) - Neuology Dr. 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 (Dr. Devine) Medical History 08/2019 - [...] Jan, Intervertebral disc disorder s with radiculopathy, lumbosacral region (ICD-10 - M51.17) PLAN OF TREATMENT Next Appt Details Provider Name:Ruma Zavala 2020-01 - 09:30:00 AM, [address] , [place], [address], Provider Name:Kavya Paredes, 2020-01 01:00:00 PM, [address], [place], [address] Provider Name:Brigid Poe, 2020-02-24 01 :30:00 PM, [address] [place], [address], Insurance Providers Payer Name Payer Address Payer Phone Insured Name Patient Relati onship to Insured Coverage Start Date Coverage End Date MEDICARE Part A and B [address] [facility] [phone] TAMARA MONROY self [employer] PPO [id number] [address] TAMARA MONROY self
--- OUTSIDE RECORDS SUMMARY | 2020-02-29 16:28 | CCD ---
Author Author [facility] Organization [facility] Address Unknown Phone Unavailable Care Team Providers Care [employer] Name Role Phone Ruma Zavala Unavailable PROBLEMS Type Condition ICD9-CM Code [id number] Code Onset Dates Condition S tatus SNOMED Code Notes Problem Major depressive disorder wi th single episode, remission status unspecified F32.9 Active 83632506 Problem Vitamin D deficiency E55.9 Active 53522143 Problem Cigarette nicotine dependence without complication F17.210 Active 52654012 Problem Sacroiliac joint pain M53.3 Active 518996241 Problem Intervertebral disc disorders with radiculopathy , lumbosacral region M51.17 Active 7376284 Problem Chronic prescription opiate use Z79.891 Active 050778772 Problem Lumbar radicular pain M54.16 Active 24215143 Problem Intervertebral disc disorders with radiculopathy , lumbar region M51.16 Active 257054632522329 Problem Abnormal weight loss R63.4 Active 303572623 Problem Myalgia, other site M79.18 Active 10966239 Problem Multiple lung nodules on CT R91.8 Active 4452 15121 Problem Hyperlipidemia E78.5 Active 64863082 Problem Macrocytosis D75.89 Active 947498584 Problem Myalgia M79.1 Active 97028508 Problem Intervertebral disc disorder with radiculopathy of lumbosacral region M51.17 Active 71614116 Problem Neuropathy G62.9 Active 304487523 Problem Spondylosis of lumbosacral 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 athy or radiculopathy M47.817 Active 84612151 Problem Pain in left shoulder M25.512 Active 11707262 Problem Essential hypertension I10 Active 82605884 Problem Myalgia M79.10 Active 57352583 Problem Chronic prescription opiate use Z79.899 Active 220528093 Problem Pain in right shoulder M25.511 Active 61015776 Problem Current moderate episode of major depressive disorder without prior episode F32.1 Active 92225005 Problem Chronic obstructive pulmonary disease, unspecified COPD ty pe J44.9 Active 80041894 Problem Pure hypercholesterolemia E78.00 Active 875225 004 Problem Anxiety F41.9 Active 41421509 Problem Other chronic pain G89.29 Active 66413546 Problem Panic disorder F41.0 Active 265767176 Problem Intervertebral disc disorder with radiculopathy of lumbar region M51.16 Active 08461820 Problem Other spondylosis, cervical region M47.892 Activ e 4730597 Problem Sacroiliitis M46.1 Active 80657195 Problem Low back pain M54.5 Active 753743652 Problem Bilateral sacroiliitis M46.1 Active 041160034 79833892 Problem Tremor of both hands R25.1 Active 672696243 ALLERGIES Allergen (clinical drug ingredient) Drug/Non Drug Allergy do cumented on EMR Reaction Allergy Type Onset Date Status duloxetine Cymbalta([facility] Code:[address]-46) chest pain Drug Allergy Active dexamethasone Dexamethasone([facility] Code:[address]-02) erythema Drug A llergy Active Penicillin (For Allergies Use Only) told as a child to not take Drug Allergy Active ENCOUNTERS from 1965 to 2020-01-16 Encounter Location Date Provider Diagnosis [address] [place] [address] Jan, Reg christine Lucas IMMUNIZATIONS Vaccine Route [...] College Language: Question Answer Notes Languages spoken: Macedonian Advent: Question Answer Notes Advent 21 Buddhism Sexual Hx: Question Answer Notes Had sex [...] 3 TABLETS Oral Active Vitamin D (Ergocalciferol) 02745 UNIT 1 capsule Orally once a week [...] Information RESULTS No Results REASON FOR VISIT No Information MEDICAL (GENERAL) HISTORY Type Description Date Medical History Chronic low back pain - DDD Medical History Right arm pain - biceps tend on rupture - [facility] - s/p surgical repair 2013 [...] BL hand tremor - Per imaging at [facility]-spine x-rays showed severe degenerative changes, MRI [...] Details Provider Name:Kavya Paredes, 2020-01 01:00:00 PM, [address] [place] [address], [phone] Provider Name:Ruma Zavala, 2020-01 10:30:00 AM, [address] [place] [address], [phone], Provider Name:Brigid Poe, 2020-02-24 01 :30:00 PM, [address] [place] [address], [phone], Insurance Providers Payer Name Payer Address Payer Phone Insured Name Patient Relati onship to Insured Coverage Start Date Coverage End Date [employer] PPO [id number] [id number] TAMARA MONROY self MEDICARE Part A and B [facility] [id number] [place] [address] [place] [phone] TAMARA MONROY self
--- OUTSIDE RECORDS SUMMARY | 2020-02-29 16:28 | CCD ---
Author Author [facility] Organization [facility] Address Unknown Phone Unavailable Care Team Providers Care [employer] Name Role Phone Ruma Zavala Unavailable PROBLEMS Type Condition ICD9-CM Code DUI08-PP Code Onset Dates Condition S tatus SNOMED Code Notes Problem Major depressive disorder wi th single episode, remission status unspecified F32.9 Active 90491811 Problem Vitamin D deficiency E55.9 Active 71162575 Problem Cigarette nicotine dependence without complication F17.210 Active 88805124 Problem Sacroiliac joint pain M53.3 Active 022926272 Problem Intervertebral disc disorders with radiculopathy , lumbosacral region M51.17 Active 8870163 Problem Chronic prescription opiate use Z79.891 Active 577398909 Problem Lumbar radicular pain M54.16 Active 17271697 Problem Intervertebral disc disorders with radiculopathy , lumbar region M51.16 Active 303393363890696 Problem Abnormal weight loss R63.4 Active 866017860 Problem Myalgia, other site M79.18 Active 27957167 Problem Multiple lung nodules on CT R91.8 Active 4452 39907 Problem Hyperlipidemia E78.5 Active 20661990 Problem Macrocytosis D75.89 Active 166634045 Problem Myalgia M79.1 Active 29961429 Problem Intervertebral disc disorder with radiculopathy of lumbosacral region M51.17 Active 76863263 Problem Neuropathy G62.9 Active 883791718 Problem Spondylosis of lumbosacral 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 athy or radiculopathy M47.817 Active 44467760 Problem Pain in left shoulder M25.512 Active 46936458 Problem Essential hypertension I10 Active 55597466 Problem Myalgia M79.10 Active 04430889 Problem Chronic prescription opiate use Z79.899 Active 930804988 Problem Pain in right shoulder M25.511 Active 20164607 Problem Current moderate episode of major depressive disorder without prior episode F32.1 Active 69395708 Problem Chronic obstructive pulmonary disease, unspecified COPD ty pe J44.9 Active 38921415 Problem Pure hypercholesterolemia E78.00 Active 378401 004 Problem Anxiety F41.9 Active 61802761 Problem Other chronic pain G89.29 Active 00643045 Problem Panic disorder F41.0 Active 297817854 Problem Intervertebral disc disorder with radiculopathy of lumbar region M51.16 Active 28937711 Problem Other spondylosis, cervical region M47.892 Activ e 9425686 Problem Sacroiliitis M46.1 Active 25097733 Problem Low back pain M54.5 Active 321736084 Problem Bilateral sacroiliitis M46.1 Active 630676899 49700391 Problem Tremor of both hands R25.1 Active 064393889 ALLERGIES Allergen (clinical drug ingredient) Drug/Non Drug Allergy do cumented on EMR Reaction Allergy Type Onset Date Status duloxetine Cymbalta([facility] Code:[address]-93) chest pain Drug Allergy Active dexamethasone Dexamethasone([facility] Code:[address]-05) erythema Drug A llergy Active Penicillin (For Allergies Use Only) told as a child to not take Drug Allergy Active ENCOUNTERS from 1965 to 2020-01-16 Encounter Location Date Provider Diagnosis [address] [place] [address] Jan, Reg christine Zavala IMMUNIZATIONS Vaccine Route [...] College Language: Question Answer Notes Languages spoken: Slovenian Rastafari: Question Answer Notes Rastafari 21 Yarsanism Sexual Hx: Question Answer Notes Had sex [...] 3 TABLETS Oral Active Vitamin D (Ergocalciferol) 47877 UNIT 1 capsule Orally once a week [...] pain - biceps tend on rupture - [facility] - s/p surgical repair 2013 [...] BL hand tremor - Per imaging at [facility] - C-spine x-rays showed severe degenerative changes, MRI showed mild Degenerative changes. F/U MRI pending per Neurosurgery (comp case) - Neuology Dr. 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 Devine) Medical History 08/2019 - Echo [...] Details Provider Name:Kavya Paredes, 2020-01 01:00:00 PM, [address] , [place], [address] Provider Name:Ruma Zavala, 2020-01 10:30:00 AM, [address] , [place], [address], Provider Name:Brigid Poe, 2020-02-24 01 :30:00 PM, [address] [place] [address], [phone], Insurance Providers Payer Name Payer Address Payer Phone Insured Name Patient Relati onship to Insured Coverage Start Date Coverage End Date [employer] PPO [phone] [address] TAMARA MONROY self MEDICARE Part A and B [address] [place] [phone] TAMARA MONROY
--- OUTSIDE RECORDS SUMMARY | 2020-02-29 16:30 | CCD ---
Author Author [facility] Organization [facility] Address Unknown Phone Unavailable Care Team Providers Care Filler Machine Operator Name Role Phone Jakub BOWIE MD Unavailable Unavailable Jakub BOWIE MD Unavailable Unavailable Jakub BOWIE MD Unavailable Unavailable Jakub BOWIE MD Unavailable Unavailable Jakub BOWIE MD Unavailable Unavailable Jakub BOWIE MD Unavailable Unavailable Jakub BOWIE MD Unavailable Unavailable Jakub BOWIE MD Unavailable Unavailable Jakub BOWIE MD Unavailable Unavailable Jakub BOWIE MD Unavailable Unavailable Jakub BOWIE MD Unavailable Unavailable Jakub BOWIE MD Unavailable Unavailable Jakub BOWIE MD Unavailable Unavailable Jakub BOWIE MD Unavailable Unavailable Jakub BOWIE MD Unavailable Unavailable Jakub BOWIE MD Unavailable Unavailable Jakub BOWIE MD Unavailable Jakub Woodward MD Unavailable Unavailable Jakub BOWIE MD Unavailable Unavailable Jakub BOWIE MD Unavailable Unavailable Jakub BOWIE MD Unavailable Unavailable Jakub BOWIE MD Unavailable Unavailable Jakub BOWIE MD Unavailable Unavailable Jakub BOWIE MD Unavailable Unavailable Jakub BOWIE MD Unavailable Unavailable Jakub BOWIE MD Unavailable Unavailable Jakub BOWIE MD Unavailable Unavailable Jakub BOWIE MD Unavailable Unavailable Jakub BOWIE MD Unavailable Unavailable SETTERJakub MD Unavailable Unavailable SETTERJakub MD Unavailable Unavailable SETTERJakub MD Unavailable Unavailable SETTER, Jakub JUDGE MD Unavailable Unavailable SETTER, Jakub JUDGE MD Unavailable Unavailable SETTER, Jakub JUDGE MD Unavailable Unavailable SETTER, Jakub JUDGE MD Unavailable Unavailable SETTERJakub MD Unavailable Unavailable SETTER, Jakub JUDGE MD Unavailable Unavailable SETTER, Jakub JUDGE MD Unavailable Unavailable SETTER, Jakub JUDGE MD Unavailable Unavailable SETTER, Jakub JUDGE MD Unavailable Unavailable SETTER, Jakub JUDGE MD Unavailable Unavailable SETTER, Jakub JUDGE MD Unavailable Unavailable SETTER, Jakub JUDGE MD Unavailable Unavailable SETTER, Jakub JUDGE MD Unavailable Unavailable SETTER, Jakub JUDGE MD Unavailable Unavailable SETTER, Jakub JUDGE MD Unavailable Unavailable SETTER, Jakub JUDGE MD Unavailable Unavailable SETTER, Jakub JUDGE MD Unavailable Unavailable SETTERJakub MD Unavailable Unavailable SETTERJakub MD Unavailable Unavailable SETTER, Jakub JUDGE MD Unavailable Unavailable SETTER, Jakub JUDGE MD Unavailable Unavailable SETTER, Jakub JUDGE MD Unavailable Unavailable SETTER, Jakub JUDGE MD Unavailable Unavailable SETTERJakub MD Unavailable Unavailable SETTERJakub MD Unavailable Unavailable SETTERJakub MD Unavailable Unavailable SETTERJakub MD Unavailable Unavailable SETTERJakub MD Unavailable Unavailable SETTERJakub MD Unavailable Unavailable SETTERJakub MD Unavailable Unavailable SETTERJakub MD Unavailable Unavailable SETTERJakub MD Unavailable Unavailable SETTERJakub MD Unavailable Unavailable SETTERJakub MD Unavailable Unavailable SETTERJakub MD Unavailable Unavailable SETTERJakub MD Unavailable Unavailable SETTERJakub MD Unavailable Unavailable SETTERJakub MD Unavailable Unavailable SETTERJakub MD Unavailable Unavailable SETTERJakub MD Unavailable Unavailable SETTERJakub MD Unavailable Unavailable SETTERJakub MD Unavailable Unavailable SETTERJakub MD Unavailable Unavailable SETTERJakub MD Unavailable Unavailable SETTERJakub MD Unavailable Unavailable SETTERJakub MD Unavailable Unavailable SETTERJakub MD Unavailable Unavailable SETTERJakub MD Unavailable Unavailable SETTERJakub MD Unavailable Unavailable SETTERJakub MD Unavailable Unavailable SETTERJakub MD Unavailable Unavailable SETTERJakub MD Unavailable Unavailable SETTER, Jakub JUDGE MD Unavailable Unavailable SETTER, Jakub JUDGE MD Unavailable Unavailable SETTER, Jakub JUDGE MD Unavailable Unavailable SETTER, Jakub JUDGE MD Unavailable Unavailable SETTER, Jakub JUDGE MD Unavailable Unavailable SETTER, Jakub JUDGE MD Unavailable Unavailable SETTER, Jakub JUDGE MD Unavailable Unavailable SETTER, Jakub JUDGE MD Unavailable Unavailable SETTER, Jakub JUDGE MD Unavailable Unavailable SETTER, Jakub JUDGE MD Unavailable Unavailable SETTER, Jakub JUDGE MD Unavailable Unavailable SETTER, Jakub JUDGE MD Unavailable Unavailable SETTER, Jakub JUDGE MD Unavailable Unavailable SETTER, Jakub JUDGE MD Unavailable Unavailable SETTER, Jakub JUDGE MD Unavailable Unavailable SETTER, Jakub JUDGE MD Unavailable Unavailable SETTER, Jakub JUDGE MD Unavailable Unavailable SETTER, Jakub JUDGE MD Unavailable Unavailable SETTER, Jakub JUDGE MD Unavailable Unavailable SETTER, Jakub JUDGE MD Unavailable Unavailable SETTER, Jakub JUDGE MD Unavailable Unavailable SETTER, Jakub JUDGE MD Unavailable Unavailable SETTER, Jakub JUDGE MD Unavailable Unavailable MANJARREZ, R PATRICK ADVERTISING CLERK Unavailable Unavailable MANJARREZ, R PATRICK ADVERTISING CLERK Unavailable Unavailable MANJARREZ, R PATRICK ADVERTISING CLERK Unavailable Unavailable MANJARREZ, R PATRICK ADVERTISING CLERK Unavailable Unavailable MANJARREZ, R PATRICK ADVERTISING CLERK Unavailable Unavailable MANJARREZ, R PATRICK ADVERTISING CLERK Unavailable Unavailable MANJARREZ, R PATRICK ADVERTISING CLERK Unavailable Unavailable MANJARREZ, R PATRICK ADVERTISING CLERK Unavailable Unavailable MANJARREZ, R PATRICK ADVERTISING CLERK Unavailable Unavailable MANJARREZ, R PATRICK ADVERTISING CLERK Unavailable Unavailable MANJARREZ, R PATRICK ADVERTISING CLERK Unavailable Unavailable MANJARREZ, R PATRICK ADVERTISING CLERK Unavailable Unavailable MANJARREZ, R PATRICK ADVERTISING CLERK Unavailable Unavailable MANJARREZ, R PATRICK ADVERTISING CLERK Unavailable Unavailable MANJARREZ, R PATRICK ADVERTISING CLERK Unavailable Unavailable MANJARREZ, R PATRICK ADVERTISING CLERK Unavailable Unavailable MANJARREZ, R PATRICK ADVERTISING CLERK Unavailable Unavailable MANJARREZ, R PATRICK ADVERTISING CLERK Unavailable Unavailable MANJARREZ, R PATRICK ADVERTISING CLERK Unavailable Unavailable MANJARREZ, R PATRICK ADVERTISING CLERK Unavailable Unavailable MANJARREZ, R PATRICK ADVERTISING CLERK Unavailable Unavailable MANJARREZ, R PATRICK ADVERTISING CLERK Unavailable Unavailable MANJARREZ, R PATRICK ADVERTISING CLERK Unavailable Unavailable MANJARREZ, R PATRICK ADVERTISING CLERK Unavailable Unavailable MANJARREZ, R PATRICK ADVERTISING CLERK Unavailable Unavailable MANJARREZ, R PATRICK ADVERTISING CLERK Unavailable Unavailable MANJARREZ, R PATRICK ADVERTISING CLERK Unavailable Unavailable MANJARREZ, R PATRICK ADVERTISING CLERK Unavailable Unavailable MANJARREZ, R PATRICK ADVERTISING CLERK Unavailable Unavailable MANJARREZ, R PATRICK ADVERTISING CLERK Unavailable Unavailable MANJARREZ, R PATRICK ADVERTISING CLERK Unavailable Unavailable MANJARREZ, R PATRICK ADVERTISING CLERK Unavailable Unavailable MANJARREZ, R PATRICK ADVERTISING CLERK Unavailable Unavailable MANJARREZ, R PATRICK ADVERTISING CLERK Unavailable Unavailable MANJARREZ, R PATRICK ADVERTISING CLERK Unavailable Unavailable MANJARREZ, R PATRICK ADVERTISING CLERK Unavailable Unavailable MANJARREZ, R PATRICK ADVERTISING CLERK Unavailable Unavailable MANJARREZ, R PATRICK ADVERTISING CLERK Unavailable Unavailable MANJARREZ, R PATRICK ADVERTISING CLERK Unavailable Unavailable MANJARREZ, R PATRICK ADVERTISING CLERK Unavailable Unavailable MANJARREZ, R APTRICK ADVERTISING CLERK Unavailable Unavailable Poe, M Brigid ADVERTISING CLERK Unavailable Unavailable Poe, M Brigid ADVERTISING CLERK Unavailable Unavailable Poe, M Brigid ADVERTISING CLERK Unavailable Unavailable Ope, M Brigid ADVERTISING CLERK Unavailable Unavailable Poe, M Brigid ADVERTISING CLERK Unavailable Unavailable Poe, M Brigid ADVERTISING CLERK Unavailable Unavailable Poe, M Brigid ADVERTISING CLERK Unavailable Unavailable Poe, M Brigid ADVERTISING CLERK Unavailable Unavailable Poe, M Brigid ADVERTISING CLERK Unavailable Unavailable Poe, M Brigid ADVERTISING CLERK Unavailable Unavailable Poe, M Brigid ADVERTISING CLERK Unavailable Unavailable Poe, M Brigid ADVERTISING CLERK Unavailable Unavailable Poe, M Brigid ADVERTISING CLERK Unavailable Unavailable Poe, M Brigid ADVERTISING CLERK Unavailable Unavailable Poe, M Brigid ADVERTISING CLERK Unavailable Unavailable Poe, M Brigid ADVERTISING CLERK Unavailable Unavailable Poe, M Brigid ADVERTISING CLERK Unavailable Unavailable Poe, M Brigid ADVERTISING CLERK Unavailable Unavailable Poe, M Brigid ADVERTISING CLERK Unavailable Unavailable Poe, M Brigid ADVERTISING CLERK Unavailable Unavailable Poe, M Brigid ADVERTISING CLERK Unavailable Unavailable Poe, M Brigid ADVERTISING CLERK Unavailable Unavailable Poe, M Brigid ADVERTISING CLERK Unavailable Unavailable Poe, M Brigid ADVERTISING CLERK Unavailable Unavailable Poe, M Brigid ADVERTISING CLERK Unavailable Unavailable Poe, M Brigid ADVERTISING CLERK Unavailable Unavailable Poe, M Brigid ADVERTISING CLERK Unavailable Unavailable Poe, M Brigid ADVERTISING CLERK Unavailable Unavailable Poe, M Brigid ADVERTISING CLERK Unavailable Unavailable Poe, M Brigid ADVERTISING CLERK Unavailable Unavailable Brooklyn Huber MD Unavailable Unavailable Brooklyn Huber MD Unavailable Unavailable Brooklyn Huber MD Unavailable Unavailable Brooklyn Huber MD Unavailable Unavailable Brooklyn Huber MD Unavailable Unavailable Brooklyn Huber MD Unavailable Unavailable Brooklyn Huber MD Unavailable Unavailable Brooklyn Huber MD Unavailable Unavailable Brooklyn Huber MD Unavailable Unavailable Brooklyn Huber MD Unavailable Unavailable Brooklyn Huber MD Unavailable Unavailable Brooklyn Huber MD Unavailable Unavailable Brooklyn Huber MD Unavailable Unavailable Brooklyn Huber MD Unavailable Unavailable Brooklyn Huber MD Unavailable Unavailable Ali, Brooklyn MD Unavailable Unavailable Ali, Brooklyn MD Unavailable Unavailable Ali, Brooklyn MD Unavailable Unavailable Ali, Brooklyn MD Unavailable Unavailable Ali, Brooklyn MD Unavailable Unavailable Ali, Brooklyn MD Unavailable Unavailable Ali, Brooklyn MD Unavailable Unavailable Ali, Brooklyn MD Unavailable Unavailable Ali, Brooklyn MD Unavailable Unavailable Ali, Brooklyn MD Unavailable Unavailable Ali, Brooklyn MD Unavailable Unavailable Ali, Brooklyn MD Unavailable Unavailable Ali, Brooklyn MD Unavailable Unavailable Ali, Brooklyn MD Unavailable Unavailable Ali, Brooklyn MD Unavailable Unavailable Ali, Brooklyn MD Unavailable Unavailable Ali, Brooklyn MD Unavailable Unavailable Ali, Brooklyn MD Unavailable Unavailable Ali, Brooklyn MD Unavailable Unavailable Ali, Brooklyn MD Unavailable Unavailable Ali, Brooklyn MD Unavailable Unavailable Ali, Brooklyn MD Unavailable Unavailable Ali, Brooklyn MD Unavailable Unavailable Ali, Brooklyn MD Unavailable Unavailable Ali, Brooklyn MD Unavailable Unavailable Ali, Brooklyn MD Unavailable Unavailable Ali, Brooklyn MD Unavailable Unavailable Ali, Brooklyn MD Unavailable Unavailable Ali, Brooklyn MD Unavailable Unavailable Ali, Brooklyn MD Unavailable Unavailable Ali, Brooklyn MD Unavailable Unavailable Ali, Brooklyn MD Unavailable Unavailable Ali, Brooklyn MD Unavailable Unavailable Ali, Brooklyn MD Unavailable Unavailable Ali, Brooklyn MD Unavailable Unavailable Ali, Brooklyn MD Unavailable Unavailable Ali, Brooklyn MD Unavailable Unavailable Re-disclosure Warning The records that you are about to access may contain information from federally-assisted alcohol or drug abuse programs. If such information is present, then the following federally mandated warning applies: This information has been disclosed to you from records protected by federal confidentiality rules (42 CFR part 2). The federal rules prohibit you from making any further disclosure of this information unless further disclosure is expressly permitted by the written consent of the person to whom it pertains or as otherwise permitted by 42 CFR part 2. A general authorization for the release of medical or other information is NOT sufficient for this purpose. The Federal rules restrict any use of the information to criminally investigate or prosecute any alcohol or drug abuse patient.The records that you are about to access may contain highly sensitive health information, the redisclosure of which is protected by Article 27-F of the [facility] Public Health law. If you continue you may have access to information: Regarding HIV / AIDS; Provided by facilities licensed or operated by the [facility] Office of Mental Health; or Provided by the [facility] Office for People With Developmental Disabilities. If such information is present, then the following [place] State mandated warning applies: This information has been disclosed to you from confidential records which are protected by state law. State law prohibits you from making any further disclosure of this information without the specific written consent of the person to whom it pertains, or as otherwise permitted by law. Any unauthorized further disclosure in violation of state law may result in a fine or residential sentence or both. A general authorization for the release of medical or other information is NOT sufficient authorization for further disc losure. Allergies and Adverse Reactions Type Description Substance Reaction Status Data Source(s ) Drug allergy Dexamethasone Dexamethasone erythema Active eCW1 ( [facility]) Drug allergy Penicillin (For Allergies Use Only) Drug allergy told as a child to not take Active eCW1 ([facility]) Family History Family Member Name Family Member Gender Family Member Status Date o f Status Description Data Source(s) Unknown Male Problem MEDENT ([facility] ) Unknown Unknown Problem MEDENT ([facility], ) Unknown Unknown Problem MEDENT ([facility], ) Unknown Unknown Problem MEDENT ([facility], ) Unknown Unknown Problem MEDENT ([facility]) Encounters Encounter Providers Location Date Indications Data Source(s ) Outpatient Attender: NU BOWIE MD 03/10/2020 12:00:00 A M [facility] Unknown [address] [facility] [address] 02/23/2020 12:00:00 AM EST eCW1 ([facility]) Unknown [address] [facility] [address] 02/23/2020 12:00:00 AM EST eCW1 ([facility]) Unknown [address] [facility] [address] 02/23/2020 12:00:00 AM EST eCW1 ([facility]) Unknown [address] [facility] [address] 02/08/2020 12:00:00 AM EST eCW1 ([facility]) TeleMedicine Phone E/M by Phys 21-30 Min [address] [place] [address] 01/28/2020 12:00:00 AM EST eCW1 ([facility]) Outpatient Attender: NU BOWIE MD 01/28/2020 12:00:00 A M [facility] Unknown [address] [facility] [place] [address] 01/27/2020 12:00:00 AM EST eCW1 ([facility]) Unknown [address] [facility] [place] [address] 01/27/2020 12:00:00 AM EST eCW1 ([facility]) Unknown [address] [facility] [place] [address] 01/27/2020 12:00:00 AM EST eCW1 ([facility]) Unknown [address] [facility] [place] [address] 01/26/2020 12:00:00 AM EST eCW1 ([facility]) Unknown [address] [facility] [place] [address] 01/25/2020 12:00:00 AM EST eCW1 ([facility]) Unknown [address] [facility] [place] [address] 01/22/2020 12:00:00 AM EST eCW1 ([facility]) Unknown [address] [facility] [place] [address] 01/20/2020 12:00:00 AM EST eCW1 ([facility]) Unknown [address] [facility] [place] [address] 01/20/2020 12:00:00 AM EST eCW1 ([facility]) ([facility]) [facility] Scheduled Visit [address] [place] [address] 01/19/2020 12:00:00 AM EST eCW1 ([facility]) Unknown [address] [facility] [place] [address] 01/19/2020 12:00:00 AM EST eCW1 ([facility]) Unknown [address] [facility] [place] [address] 01/18/2020 12:00:00 AM EST eCW1 ([facility]) Unknown [address] [facility] [place] [address] 01/18/2020 12:00:00 AM EST eCW1 ([facility]) Outpatient [address] [facility] [place] [address] 01/15/2020 12:00:00 AM EST eCW1 ([facility]) Unknown [address] [facility] [place] [address] 01/15/2020 12:00:00 AM EST eCW1 ([facility]) Unknown [address] [facility] [place] [address] 01/14/2020 12:00:00 AM EST eCW1 ([facility]) Unknown [address] [facility] [place] [address] 01/13/2020 12:00:00 AM EST eCW1 ([facility]) Unknown [address] [facility] [place] [address] 01/13/2020 12:00:00 AM EST eCW1 ([facility]) Unknown [address] [facility] [place] [address] 01/13/2020 12:00:00 AM EST eCW1 ([facility]) Outpatient Attender: NU BOWIE MD 01/13/2020 12:00:00 A [facility] Unknown [address] [facility] [place] [address] 01/12/2020 12:00:00 AM EST eCW1 ([facility]) Unknown [address] [facility] [place] [address] 01/12/2020 12:00:00 AM EST eCW1 ([facility]) Unknown [address] [facility] [place] [address] 01/12/2020 12:00:00 AM EST eCW1 ([facility]) Unknown [address] [facility] [place] [address] 01/11/2020 12:00:00 AM EST eCW1 ([facility]) Unknown [address] [facility] [place] [address] 01/10/2020 12:00:00 AM EST eCW1 ([facility]) Unknown [address] [facility] [place] [address] 01/05/2020 12:00:00 AM EST eCW1 ([facility]) Unknown [address] [facility] [place] [address] 01/04/2020 12:00:00 AM EST eCW1 ([facility]) Unknown [address] [facility] [place] [address] 01/02/2020 12:00:00 AM EST eCW1 ([facility]) Unknown [address] [facility] [place] [address] 01/01/2020 12:00:00 AM EST eCW1 ([facility]) Unknown [address] [facility] [place] [address] 12/31/2019 12:00:00 AM EST eCW1 ([facility]) Unknown [address] [facility] [place] [address] 12/29/2019 12:00:00 AM EST eCW1 ([facility]) Unknown [address] [facility] [place] [address] 12/28/2019 12:00:00 AM EST eCW1 ([facility]) Unknown [address] [facility] [place] [address] 12/25/2019 12:00:00 AM EST eCW1 ([facility]) Outpatient [address] [facility] [place] [address] 12/24/2019 12:00:00 AM EST eCW1 ([facility]) Unknown [address] [facility] [place] [address] 12/24/2019 12:00:00 AM EST eCW1 ([facility]) Unknown [address] [facility] [place] [address] 12/24/2019 12:00:00 AM EST eCW1 ([facility]) Unknown [address] [facility] [place] [address] 12/24/2019 12:00:00 AM EST eCW1 ([facility]) Unknown [address] [facility] [place] [address] 12/24/2019 12:00:00 AM EST eCW1 ([facility]) Unknown [address] [facility] [place] [address] 12/23/2019 12:00:00 AM EST eCW1 ([facility]) Unknown [address] [facility] [place] [address] 12/23/2019 12:00:00 AM EST eCW1 ([facility]) Unknown [address] [facility] [place] [address] 12/23/2019 12:00:00 AM EST eCW1 ([facility]) Unknown [address] [facility] [place] [address] 12/22/2019 12:00:00 AM EST eCW1 ([facility]) Unknown [address] [facility] [place] [address] 12/22/2019 12:00:00 AM EST eCW1 ([facility]) Outpatient [address] [facility] [place] [address] 12/22/2019 12:00:00 AM EST eCW1 ([facility]) Unknown [address] [facility] [place] [address] 12/22/2019 12:00:00 AM EST eCW1 ([facility]) Unknown [address] [facility] [place] [address] 12/21/2019 12:00:00 AM EST eCW1 ([facility]) Unknown [address] [facility] [place] [address] 12/20/2019 12:00:00 AM EST eCW1 ([facility]) Unknown [address] [facility] [place] [address] 12/18/2019 12:00:00 AM EST eCW1 ([facility]) Unknown [address] [facility] [place] [address] 12/18/2019 12:00:00 AM EST eCW1 ([facility]) Unknown [address] [facility] [place] [address] 12/18/2019 12:00:00 AM EST eCW1 ([facility]) Unknown [address] [facility] [place] [address] 12/18/2019 12:00:00 AM EST eCW1 ([facility]) Outpatient [address] [facility] [place] [address] 12/17/2019 12:00:00 AM EST eCW1 ([facility]) (PN Proc 45) Pain Procedure 45 [address] [place] [address] 12/11/2019 12:00:00 AM EDT eCW1 ([facility]) Unknown [address] [facility] [place] [address] 12/10/2019 12:00:00 AM EDT eCW1 ([facility]) Unknown [address] [facility] [place] [address] 12/10/2019 12:00:00 AM EDT eCW1 ([facility]) Unknown [address] [facility] [place] [address] 12/09/2019 12:00:00 AM EDT eCW1 ([facility]) Unknown [address] [facility] [place] [address] 12/07/2019 12:00:00 AM EDT eCW1 ([facility]) Unknown [address] [facility] [place] [address] 12/01/2019 12:00:00 AM EDT eCW1 ([facility]) Unknown [address] [facility] [place] [address] 11/30/2019 12:00:00 AM EDT eCW1 ([facility]) Outpatient [address] [facility] [place] [address] 11/30/2019 12:00:00 AM EDT eCW1 ([facility]) Unknown [address] [facility] [place] [address] 11/29/2019 12:00:00 AM EDT eCW1 ([facility]) Outpatient [address] [facility] [place] [address] 11/24/2019 12:00:00 AM EDT eCW1 ([facility]) Unknown [address] [facility] [place] [address] 11/17/2019 12:00:00 AM EDT eCW1 ([facility]) (PN Proc 45) Pain Procedure 45 [address] [place] [address] 11/12/2019 12:00:00 AM EDT eCW1 ([facility]) Unknown [address] [facility] [place] [address] 11/10/2019 12:00:00 AM EDT eCW1 ([facility]) Unknown [address] [facility] [place] [address] 11/03/2019 12:00:00 AM EDT eCW1 ([facility]) Unknown [address] [facility] [place] [address] 11/03/2019 12:00:00 AM EDT eCW1 ([facility]) Unknown [address] [facility] [place] [address] 11/03/2019 12:00:00 AM EDT eCW1 ([facility]) Unknown [address] [facility] [place] [address] 11/03/2019 12:00:00 AM EDT eCW1 ([facility]) Unknown [address] [facility] [place] [address] 11/03/2019 12:00:00 AM EDT eCW1 ([facility]) Unknown [address] [facility] [place] [address] 11/03/2019 12:00:00 AM EDT eCW1 ([facility]) [facility] [address] [facility] [place] [address] 10/09/2019 12:00:00 AM EDT eCW1 ([facility]) Outpatient Attender: Brooklyn Huber MD Main office - [place] 09/28/2019 03:10:00 PM EDT MEDENT ([facility]) Outpatient Attender: Brooklyn Huber MD Main office - [place] 09/22/2019 11:30:00 AM EDT MEDENT ([facility]) [facility] [address] [place] [address] 09/14/2019 12:00:00 AM EDT eCW1 ([facility]) Outpatient [address] [facility] [place] [address] 09/04/2019 12:00:00 AM EDT eCW1 ([facility]) Unknown [address] [facility] [place] [address] 09/03/2019 12:00:00 AM EDT eCW1 ([facility]) Unknown [address] [facility] [place] [address] 09/01/2019 12:00:00 AM EDT eCW1 ([facility]) Outpatient [address] [facility] [place] [address] 08/31/2019 12:00:00 AM EDT eCW1 ([facility]) Unknown [address] [facility] [place] [address] 08/28/2019 12:00:00 AM EDT eCW1 ([facility]) Unknown [address] [facility] [place] [address] 08/27/2019 12:00:00 AM EDT eCW1 ([facility]) Unknown [address] [facility] [place] [address] 08/27/2019 12:00:00 AM EDT eCW1 ([facility]) Unknown [address] [facility] [place] [address] 08/26/2019 12:00:00 AM EDT eCW1 ([facility]) Outpatient [address] [facility] [place] [address] 08/25/2019 12:00:00 AM EDT eCW1 ([facility]) Outpatient Attender: PATRICK MANJARREZ NP 08/25/2019 12:00:0 0 AM EDT [facility] Unknown [address] [facility] [place] [address] 08/19/2019 12:00:00 AM EDT eCW1 ([facility]) Outpatient Referrer: Brigid Poe NP 08/13/2019 05:20:00 AM EDT [facility] Radiology Imaging Office Visit, Est Pt., Level 3 PC [address] [place] [address] 08/13/2019 12:00:00 AM EDT eCW1 ([facility]) Outpatient [address] [facility] [place] [address] 08/04/2019 12:00:00 AM EDT eCW1 ([facility]) Unknown [address] [facility] [place] [address] 08/03/2019 12:00:00 AM EDT eCW1 ([facility]) [facility] [address] [place] [phone] 07/30/2019 12:00:00 AM EDT eCW1 ([facility]) Outpatient Referrer: Brigid Poe NP 07/29/2019 05:54:00 AM EDT [facility] Radiology Imaging [facility] [address] [place] [address] 07/29/2019 12:00:00 AM EDT eCW1 ([facility]) Unknown [address] [facility] [place] [address] 07/28/2019 12:00:00 AM EDT eCW1 ([facility]) Unknown [address] [facility] [place] [address] 07/24/2019 12:00:00 AM EDT eCW1 ([facility]) Unknown [address] [facility] [place] [address] 07/22/2019 12:00:00 AM EDT eCW1 ([facility]) Outpatient [address] [facility] [address] 07/14/2019 12:00:00 AM EDT eCW1 ([facility] [place]) TeleMedicine Phone E/M by Phys 11-[address] [place] [phone] 07/13/2019 12:00:00 AM EDT eCW1 ([facility]) [facility] [address] [place] [phone] 07/13/2019 12:00:00 AM EDT eCW1 ([facility] [place]) [facility] [address] [place] [phone] 07/07/2019 12:00:00 AM EDT eCW1 ([facility]) [facility] [address] [place] [address] 06/25/2019 12:00:00 AM EDT eCW1 ([facility]) [facility] [address] [place] [phone] 06/24/2019 12:00:00 AM EDT eCW1 ([facility] [place]) [facility] [address] [place] [phone] 06/16/2019 12:00:00 AM EDT eCW1 ([facility]) [facility] [address] [place] [phone] 06/12/2019 12:00:00 AM EDT eCW1 ([facility]) [facility] [address] [place] [phone] 06/03/2019 12:00:00 AM EDT eCW1 ([facility]) [facility] [place] [address] [facility] [place] [address] 06/03/2019 12:00:00 AM EDT eCW1 ([facility] [place]) Outpatient Attender: NU BOWIE MD 06/03/2019 [facility] [address] [place] [phone] 05/28/2019 12:00:00 AM EDT eCW1 ([facility]) [facility] [address] [place] [phone] 05/27/2019 12:00:00 AM EDT eCW1 ([facility]) [facility] [address] [place] [phone] 05/27/2019 12:00:00 AM EDT eCW1 ([facility]) [facility] [place] [address] [place] [phone] 05/22/2019 12:00:00 AM EDT eCW1 ([facility]) [facility] [address] [place] [phone] 05/21/2019 12:00:00 AM EDT eCW1 ([facility]) [facility] [place] [address] [place] [phone] 05/20/2019 12:00:00 AM EDT eCW1 ([facility]) [facility] [address] [place] [phone] 05/18/2019 12:00:00 AM EDT eCW1 ([facility]) [facility] [address] [place] [phone] 05/15/2019 12:00:00 AM EDT eCW1 ([facility]) [facility] [address] [place] [phone] 05/12/2019 12:00:00 AM EDT eCW1 ([facility]) [facility] [address] [place] [phone] 05/12/2019 12:00:00 AM EDT eCW1 ([facility]) [facility] [place] [address] [place] [phone] 05/08/2019 12:00:00 AM EDT eCW1 ([facility]) [facility] [place] [address] [facility] [place] [address] 05/05/2019 12:00:00 AM EDT eCW1 ([facility]) [facility] [address] [place] [phone] 05/01/2019 12:00:00 AM EDT eCW1 ([facility]) [facility] [place] [address] [facility] [place] [address] 04/30/2019 12:00:00 AM EDT eCW1 ([facility]) [facility] [address] [place] [phone] 04/30/2019 12:00:00 AM EDT eCW1 ([facility]) [facility] [address] [place] [phone] 04/21/2019 12:00:00 AM EDT eCW1 ([facility]) [facility] [address] [place] [phone] 04/16/2019 12:00:00 AM EST eCW1 ([facility]) [facility] [place] [address] [place] [address] [place] [address] 04/15/2019 12:00:00 AM EST eCW1 ([facility]) [facility] [place] [address] [facility] [place] [address] 04/14/2019 12:00:00 AM EST eCW1 ([facility]) [facility] [address] [place] [phone] 04/09/2019 12:00:00 AM EST eCW1 ([facility]) [facility] [address] [place] [phone] 04/08/2019 12:00:00 AM EST eCW1 ([facility]) Outpatient Referrer: Brigid Poe NP 04/07/2019 08:15:00 AM EST [facility] [place] [address] [facility] [place] [address] 04/07/2019 12:00:00 AM EST eCW1 ([facility]) [address] [address] 04/06/2019 12:00:00 AM EST eCW1 ([facility]) [facility] [place] [address] [place] [phone] 04/02/2019 12:00:00 AM EST eCW1 ([facility] [place]) Outpatient Attender: NU BOWIE MD [id number] 2019 12:00:00 AM EST - 04/20/2019 07:15:28 AM EDT Lesion of ulnar nerve, right upper limb [facility] Lesion of ulnar nerve, right upper limb [facility] [place] [address] [place] [phone] 03/31/2019 12:00:00 AM EST eCW1 ([facility] [place]) [facility] [address] [place] [phone] 03/27/2019 12:00:00 AM EST eCW1 ([facility] [place]) [facility] [place] [address] [place] [phone] 03/26/2019 12:00:00 AM EST eCW1 ([facility] [place]) [facility] [address] [place] [phone] 03/26/2019 12:00:00 AM EST eCW1 ([facility] [place]) [facility] [address] [place] [phone] 03/25/2019 12:00:00 AM EST eCW1 ([facility]) [facility] [address] [place] [phone] 03/25/2019 12:00:00 AM EST eCW1 ([facility] [place]) [facility] [address] [place] [phone] 03/23/2019 12:00:00 AM EST eCW1 ([facility] [place]) [facility] [address] [place] [phone] 03/10/2019 12:00:00 AM EST eCW1 ([facility]) Outpatient Attender: NU BOWIE MD 03/05/2019 12:00:00 [facility] [address] [place] [phone] 03/02/2019 12:00:00 AM EST eCW1 ([facility]) [facility] [address] [place] [phone] 02/27/2019 12:00:00 AM EST eCW1 ([facility]) [facility] [address] [place] [phone] 02/24/2019 12:00:00 AM EST eCW1 ([facility]) [facility] [address] [place] [phone] 02/23/2019 12:00:00 AM EST eCW1 ([facility]) [facility] [address] [place] [phone] 02/16/2019 12:00:00 AM EST eCW1 ([facility]) [facility] [address] [place] [phone] 02/13/2019 12:00:00 AM EST eCW1 ([facility]) [facility] [address] [place] [phone] 02/13/2019 12:00:00 AM EST eCW1 ([facility]) [facility] [address] [place] [phone] 02/12/2019 12:00:00 AM EST eCW1 ([facility]) [facility] [address] [place] [phone] 01/23/2019 12:00:00 AM EST eCW1 ([facility]) [facility] [address] [place] [phone] 01/19/2019 12:00:00 AM EST eCW1 ([facility]) [facility] [address] [place] [phone] 01/14/2019 12:00:00 AM EST eCW1 ([facility]) [facility] [address] [place] [phone] 01/12/2019 12:00:00 AM EST eCW1 ([facility]) [facility] [address] [place] [phone] 01/12/2019 12:00:00 AM EST eCW1 ([facility]) [facility] [address] [place] [phone] 01/07/2019 12:00:00 AM EST eCW1 ([facility]) [facility] [place] [address] [place] [phone] 12/31/2018 12:00:00 AM EST eCW1 ([facility]) [facility] [place] [address] [place] [phone] 12/31/2018 12:00:00 AM EST eCW1 ([facility]) Outpatient Attender: NU BOWIE MD [id number] 2018 12:00:00 AM EDT - 12/04/2018 04:58:06 PM EDT Impingement syndrome of left shoulder [facility] Impingement syndrome of left shoulder Outpatient Attender: NU BOWIE MD [id number] 2018 12:00:00 AM EDT - 09/11/2018 11:29:37 AM EDT Other specified postprocedural states [facility] Other specified postprocedural states Outpatient Attender: NU BOWIE MD [id number] 2018 12:00:00 AM EDT - 07/10/2018 03:37:50 PM EDT Complete rotator cuff tear or rupture of right shoulder, not specified as traumatic [facility] Complete rotator cuff tear or rupture of right shoulder, not specified as traumatic Immunizations Vaccine Date Status Description Data Source(s) influenza, recombinant, quadrIvalent,injectable, prese rvative free 01/15/2020 10:57:00 AM EST completed eCW1 ([facility]) influenza, recombinant, quadrIvalent,injectable, prese rvative free 01/15/2020 10:57:00 AM EST completed eCW1 ([facility]) influenza, recombinant, quadrIvalent,injectable, prese rvative free 01/15/2020 10:57:00 AM EST completed eCW1 ([facility]) influenza, recombinant, quadrIvalent,injectable, prese rvative free 01/15/2020 10:57:00 AM EST completed eCW1 ([facility]) influenza, recombinant, quadrIvalent,injectable, prese rvative free 01/15/2020 10:57:00 AM EST completed eCW1 ([facility]) influenza, recombinant, quadrIvalent,injectable, prese rvative free 01/15/2020 10:57:00 AM EST completed eCW1 ([facility]) influenza, recombinant, quadrIvalent,injectable, prese rvative free 01/15/2020 10:57:00 AM EST completed eCW1 ([facility]) influenza, recombinant, quadrIvalent,injectable, prese rvative free 01/15/2020 10:57:00 AM EST completed eCW1 ([facility]) influenza, recombinant, quadrIvalent,injectable, prese rvative free 01/15/2020 10:57:00 AM EST completed eCW1 ([facility]) influenza, recombinant, quadrIvalent,injectable, prese rvative free 01/15/2020 10:57:00 AM EST completed eCW1 ([facility]) influenza, recombinant, quadrIvalent,injectable, prese rvative free 01/15/2020 10:57:00 AM EST completed eCW1 ([facility]) influenza, recombinant, quadrIvalent,injectable, prese rvative free 01/15/2020 10:57:00 AM EST completed eCW1 ([facility]) influenza, recombinant, quadrIvalent,injectable, prese rvative free 01/15/2020 10:57:00 AM EST completed eCW1 ([facility]) influenza, recombinant, quadrIvalent,injectable, prese rvative free 01/15/2020 10:57:00 AM EST completed eCW1 ([facility]) influenza, recombinant, quadrIvalent,injectable, prese rvative free 01/15/2020 10:57:00 AM EST completed eCW1 ([facility]) influenza, recombinant, quadrIvalent,injectable, prese rvative free 01/15/2020 10:57:00 AM EST completed eCW1 ([facility]) influenza, recombinant, quadrIvalent,injectable, prese rvative free 01/15/2020 10:57:00 AM EST completed eCW1 ([facility]) influenza, recombinant, quadrIvalent,injectable, prese rvative free 01/15/2020 10:57:00 AM EST completed eCW1 ([facility]) influenza, recombinant, quadrIvalent,injectable, prese rvative free 01/15/2020 10:57:00 AM EST completed eCW1 ([facility]) influenza, recombinant, quadrIvalent,injectable, prese rvative free 01/15/2020 10:57:00 AM EST completed eCW1 ([facility]) influenza, recombinant, quadrIvalent,injectable, prese rvative free 01/15/2020 10:57:00 AM EST completed eCW1 ([facility]) influenza, recombinant, quadrIvalent,injectable, prese rvative free 01/15/2020 10:57:00 AM EST completed eCW1 ([facility]) influenza, recombinant, quadrIvalent,injectable, prese rvative free 01/15/2020 10:57:00 AM EST completed eCW1 ([facility]) Medications Medication Brand Name Start Date Product Form Dose Route Admi nistrative Instructions Pharmacy Instructions Status Indications Reaction Description Data Source(s) Amitriptyline Hydrochloride 25 MG Oral Tablet AMITRIPTYLINE HCL 02/24/2020 12:00:00 AM EST tablet 150 TAKE 5 TABLETS BY MOUTH O NCE A DAY TAKE 5 TABLETS BY MOUTH ONCE A DAY SOLD: 02/24/2020 [facility] 10-325 mg 02/24/2020 12:00:00 AM EST tablet 90 TAKE ONE TABLET BY MOUTH EVERY 6 HOURS NEEDED MAXIMUM DAILY DOSE = 4 SHOULD LAST 30 DAYS TAKE ONE TABLET BY MOUTH EVERY 6 HOURS NEEDED MAXIMUM DAILY DOSE = 4 SHOULD LAST 30 DAYS SOLD: 02/24/2020 [facility] 15 mg 02/24/2020 12:00:00 AM EST tablet extended release 90 TAKE ONE TABLET BY MOUTH EVERY 8 HOURS MAXIMUM DAILY DOSE = 3 TAKE ONE TABLET BY MOUTH EVERY 8 HOURS MAXIMUM DAILY DOSE = 3 SOLD: 02/24/2020 [facility] Acetaminophen 325 MG / Oxycodone Hydroch loride 10 MG Oral Tablet [Percocet] Percocet 10-325 MG Percocet 10-325 MG 02/23/2020 12:00:00 AM EST 1.0 {tablet_as_needed} active Percocet 10-3 25 MG eCW1 ([facility]) Morphine Sulfate 15 MG Oral Tablet Morphine Sulfate 15 MG 12:00:00 AM EST 1.0 {tablet_as_needed} active M orphine Sulfate 15 MG eCW1 ([facility]) Acetaminophen 325 MG / Oxycodone Hydroch loride 10 MG Oral Tablet [Percocet] Percocet 10-325 MG Percocet 10-325 MG 02/23/2020 12:00:00 AM EST 1.0 {tablet_as_needed} active Percocet 10-3 25 MG eCW1 ([facility]) Morphine Sulfate 15 MG Oral Tablet Morphine Sulfate 15 MG 12:00:00 AM EST 1.0 {tablet_as_needed} active M orphine Sulfate 15 MG eCW1 ([facility]) Acetaminophen 325 MG / Oxycodone Hydroch loride 10 MG Oral Tablet [Percocet] Percocet 10-325 MG Percocet 10-325 MG 02/23/2020 12:00:00 AM EST 1.0 {tablet_as_needed} active Percocet 10-3 25 MG eCW1 ([facility]) Morphine Sulfate 15 MG Oral Tablet Morphine Sulfate 15 MG 12:00:00 AM EST 1.0 {tablet_as_needed} active M orphine Sulfate 15 MG eCW1 ([facility]) Budesonide 180 MCG/ACT UNK 02/16/2020 12:00:00 AM EST 1.0 {puff } active Budesonide 180 MCG/ACT eCW1 ([facility]) Budesonide 180 MCG/ACT UNK 02/16/2020 12:00:00 AM EST 1.0 {puff } active Budesonide 180 MCG/ACT eCW1 ([facility]) Budesonide 180 MCG/ACT UNK 02/16/2020 12:00:00 AM EST 1.0 {puff } active Budesonide 180 MCG/ACT eCW1 ([facility]) 2 mg 02/09/2020 12:00:00 AM EST tablet 45 TAKE 1 TABLET BY MOUTH IN THE MORNING , 1/2 TABLET AT NOON, AND 1 TABLET IN THE EVENING, MAXIMUM DAILY DOSE = 2 & 1/2 TABLETS TAKE 1 TABLET BY MOUTH IN THE MORNING , 1/2 TABLET AT NOON, AND 1 TABLET IN THE EVENING, MAXIMUM DAILY DOSE = 2 & 1/2 TABLETS SOLD: 02/09/2020 [facility] Amitriptyline Hydrochloride 25 MG Oral Tablet AMITRIPTYLINE HCL 02/04/2020 12:00:00 AM EST tablet 120 TAKE 4 TABLETS BY MOUTH O NCE A DAY TAKE 4 TABLETS BY MOUTH ONCE A DAY SOLD: 02/04/2020 [facility] Albuterol 0.833 MG/ML / Ipratropium Brom krish 0.167 MG/ML Inhalant Solution Ipratropium-Albuterol 0.5-2.5 (3) MG/3ML Ipratropium-Albuterol 0.5-2.5 (3) MG/3ML 01/28/2020 12:00:00 AM EST 3.0 {ml_as_needed} active Ipratropium-Albuterol 0.5-2.5 (3) MG/3ML eCW1 ([facility]) Albuterol 0.833 MG/ML / Ipratropium Brom krish 0.167 MG/ML Inhalant Solution Ipratropium-Albuterol 0.5-2.5 (3) MG/3ML Ipratropium-Albuterol 0.5-2.5 (3) MG/3ML 01/28/2020 12:00:00 AM EST 3.0 {ml_as_needed} active Ipratropium-Albuterol 0.5-2.5 (3) MG/3ML eCW1 ([facility]) Albuterol 0.833 MG/ML / Ipratropium Brom krish 0.167 MG/ML Inhalant Solution Ipratropium-Albuterol 0.5-2.5 (3) MG/3ML Ipratropium-Albuterol 0.5-2.5 (3) MG/3ML 01/28/2020 12:00:00 AM EST 3.0 {ml_as_needed} active Ipratropium-Albuterol 0.5-2.5 (3) MG/3ML eCW1 ([facility]) Albuterol 0.833 MG/ML / Ipratropium Brom krish 0.167 MG/ML Inhalant Solution Ipratropium-Albuterol 0.5-2.5 (3) MG/3ML Ipratropium-Albuterol 0.5-2.5 (3) MG/3ML 01/28/2020 12:00:00 AM EST 3.0 {ml_as_needed} active Ipratropium-Albuterol 0.5-2.5 (3) MG/3ML eCW1 ([facility]) Albuterol 0.833 MG/ML / Ipratropium Brom krish 0.167 MG/ML Inhalant Solution Ipratropium-Albuterol 0.5-2.5 (3) MG/3ML Ipratropium-Albuterol 0.5-2.5 (3) MG/3ML 01/28/2020 12:00:00 AM EST 3.0 {ml_as_needed} active Ipratropium-Albuterol 0.5-2.5 (3) MG/3ML eCW1 ([facility]) Albuterol 0.833 MG/ML / Ipratropium Brom krish 0.167 MG/ML Inhalant Solution Ipratropium-Albuterol 0.5-2.5 (3) MG/3ML Ipratropium-Albuterol 0.5-2.5 (3) MG/3ML 01/28/2020 12:00:00 AM EST 3.0 {ml_as_needed} active Ipratropium-Albuterol 0.5-2.5 (3) MG/3ML eCW1 ([facility]) Albuterol 0.833 MG/ML / Ipratropium Brom krish 0.167 MG/ML Inhalant Solution Ipratropium-Albuterol 0.5-2.5 (3) MG/3ML Ipratropium-Albuterol 0.5-2.5 (3) MG/3ML 01/28/2020 12:00:00 AM EST 3.0 {ml_as_needed} active Ipratropium-Albuterol 0.5-2.5 (3) MG/3ML eCW1 ([facility]) Albuterol 0.833 MG/ML / Ipratropium Brom krish 0.167 MG/ML Inhalant Solution Ipratropium-Albuterol 0.5-2.5 (3) MG/3ML Ipratropium-Albuterol 0.5-2.5 (3) MG/3ML 01/28/2020 12:00:00 AM EST 3.0 {ml_as_needed} active Ipratropium-Albuterol 0.5-2.5 (3) MG/3ML eCW1 ([facility]) Albuterol 0.833 MG/ML / Ipratropium Brom krish 0.167 MG/ML Inhalant Solution Ipratropium-Albuterol 0.5-2.5 (3) MG/3ML Ipratropium-Albuterol 0.5-2.5 (3) MG/3ML 01/28/2020 12:00:00 AM EST 3.0 {ml_as_needed} active Ipratropium-Albuterol 0.5-2.5 (3) MG/3ML eCW1 ([facility]) Morphine Sulfate 15 MG Extended Release Oral Tablet Mo rphine Sulfate ER 15 MG Morphine Sulfate ER 15 MG 01/27/2020 12:00:00 AM EST 1.0 {tablet} active Morphine Sulfate ER 15 MG eCW1 ( [facility]) Morphine Sulfate 15 MG Oral Tablet Morphine Sulfate 15 MG 12:00:00 AM EST 1.0 {tablet_as_needed} active M orphine Sulfate 15 MG eCW1 ([facility]) Morphine Sulfate 15 MG Oral Tablet Morphine Sulfate 15 MG 12:00:00 AM EST 1.0 {tablet_as_needed} active M orphine Sulfate 15 MG eCW1 ([facility]) Morphine Sulfate ER 15 MG UNK 01/27/2020 12:00:00 AM EST 1.0 {tablet} active Morphine Sulfate ER 15 MG eCW1 ( [facility]) Morphine Sulfate ER 15 MG UNK 01/27/2020 12:00:00 AM EST 1.0 {tablet} active Morphine Sulfate ER 15 MG eCW1 ( [facility]) Morphine Sulfate 15 MG Oral Tablet Morphine Sulfate 15 MG 12:00:00 AM EST 1.0 {tablet_as_needed} active M orphine Sulfate 15 MG eCW1 ([facility]) Morphine Sulfate 15 MG Oral Tablet Morphine Sulfate 15 MG 12:00:00 AM EST 1.0 {tablet_as_needed} active M orphine Sulfate 15 MG eCW1 ([facility]) Morphine Sulfate 15 MG Oral Tablet Morphine Sulfate 15 MG 12:00:00 AM EST 1.0 {tablet_as_needed} active M orphine Sulfate 15 MG eCW1 ([facility]) Morphine Sulfate 15 MG Oral Tablet Morphine Sulfate 15 MG 12:00:00 AM EST 1.0 {tablet_as_needed} active M orphine Sulfate 15 MG eCW1 ([facility]) Morphine Sulfate 15 MG Oral Tablet Morphine Sulfate 15 MG 12:00:00 AM EST 1.0 {tablet_as_needed} active M orphine Sulfate 15 MG eCW1 ([facility]) 15 mg 01/27/2020 12:00:00 AM EST tablet extended release 90 TAKE 1 TABLET BY MOUTH EVERY 8 HOURS MAXIMUM DAILY DOSE = 3 TABLETS TAKE 1 TABLET BY MOUTH EVERY 8 HOURS MAXIMUM DAILY DOSE = 3 TABLETS SOLD: 01/27/2020 [facility] Morphine Sulfate 15 MG Extended Release Oral Tablet Mo rphine Sulfate ER 15 MG Morphine Sulfate ER 15 MG 01/27/2020 12:00:00 AM EST 1.0 {tablet} active Morphine Sulfate ER 15 MG eCW1 ( [facility]) Morphine Sulfate 15 MG Oral Tablet Morphine Sulfate 15 MG 12:00:00 AM EST 1.0 {tablet_as_needed} active M orphine Sulfate 15 MG eCW1 ([facility]) Morphine Sulfate ER 15 MG UNK 01/26/2020 12:00:00 AM EST 1.0 {tablet} active Morphine Sulfate ER 15 MG eCW1 ( [facility]) Acetaminophen 325 MG / Oxycodone Hydroch loride 10 MG Oral Tablet [Percocet] Percocet 10-325 MG Percocet 10-325 MG 01/22/2020 12:00:00 AM EST 1.0 {tablet_as_needed} active Percocet 10-3 25 MG eCW1 ([facility]) Acetaminophen 325 MG / Oxycodone Hydroch loride 10 MG Oral Tablet [Percocet] Percocet 10-325 MG Percocet 10-325 MG 01/22/2020 12:00:00 AM EST 1.0 {tablet_as_needed} suspended Percocet 10 -325 MG eCW1 ([facility]) Acetaminophen 325 MG / Oxycodone Hydroch loride 10 MG Oral Tablet [Percocet] Percocet 10-325 MG Percocet 10-325 MG 01/22/2020 12:00:00 AM EST 1.0 {tablet_as_needed} active Percocet 10-3 25 MG eCW1 ([facility]) 10-325 mg 01/22/2020 12:00:00 AM EST tablet 90 TAKE 1 TABLET BY MOUTH EVERY 6 HOURS NEEDED MAXIMUM DAILY DOSE = 4 TABLETS (SHOULD LAST 30 DAYS) TAKE 1 TABLET BY MOUTH EVERY 6 HOURS NEEDED MAXIMUM DAILY DOSE = 4 TABLETS (SHOULD LAST 30 DAYS) SOLD: 01/22/2020 [facility] Acetaminophen 325 MG / Oxycodone Hydroch loride 10 MG Oral Tablet [Percocet] Percocet 10-325 MG Percocet 10-325 MG 01/22/2020 12:00:00 AM EST 1.0 {tablet_as_needed} suspended Percocet 10 -325 MG eCW1 ([facility] [facility] Acetaminophen 325 MG / Oxycodone Hydroch loride 10 MG Oral Tablet [Percocet] Percocet 10-325 MG Percocet 10-325 MG 01/22/2020 12:00:00 AM EST 1.0 {tablet_as_needed} suspended Percocet 10 -325 MG eCW1 ([facility]) 2 mg 01/22/2020 12:00:00 AM EST tablet 45 TAKE 1 TABLET BY MOUTH EVERY MORNING THEN 1/2 TABLET AT NOON THEN 1 TABLET EVERY EVENING DIRECTED MAXIMUM DAILY DOSE = 2 AND 1/2 TABLETS TAKE 1 TABLET BY MOUTH EVERY MORNING THE N 1/2 TABLET AT NOON THEN 1 TABLET EVERY EVENING DIRECTED MAXIMUM DAILY DOSE = 2 AND 1/2 TABLETS SOLD: 01/22/2020 [facility] Acetaminophen 325 MG / Oxycodone Hydroch loride 10 MG Oral Tablet [Percocet] Percocet 10-325 MG Percocet 10-325 MG 01/22/2020 12:00:00 AM EST 1.0 {tablet_as_needed} active Percocet 10-3 25 MG eCW1 ([facility]) Acetaminophen 325 MG / Oxycodone Hydroch loride 10 MG Oral Tablet [Percocet] Percocet 10-325 MG Percocet 10-325 MG 01/22/2020 12:00:00 AM EST 1.0 {tablet_as_needed} suspended Percocet 10 -325 MG eCW1 ([facility]) Acetaminophen 325 MG / Oxycodone Hydroch loride 10 MG Oral Tablet [Percocet] Percocet 10-325 MG Percocet 10-325 MG 01/22/2020 12:00:00 AM EST 1.0 {tablet_as_needed} active Percocet 10-3 25 MG eCW1 ([facility]) Acetaminophen 325 MG / Oxycodone Hydroch loride 10 MG Oral Tablet [Percocet] Percocet 10-325 MG Percocet 10-325 MG 01/22/2020 12:00:00 AM EST 1.0 {tablet_as_needed} active Percocet 10-3 25 MG eCW1 ([facility]) Acetaminophen 325 MG / Oxycodone Hydroch loride 10 MG Oral Tablet [Percocet] Percocet 10-325 MG Percocet 10-325 MG 01/22/2020 12:00:00 AM EST 1.0 {tablet_as_needed} suspended Percocet 10 -325 MG eCW1 ([facility]) Acetaminophen 325 MG / Oxycodone Hydroch loride 10 MG Oral Tablet [Percocet] Percocet 10-325 MG Percocet 10-325 MG 01/22/2020 12:00:00 AM EST 1.0 {tablet_as_needed} suspended Percocet 10 -325 MG eCW1 ([facility]) Acetaminophen 325 MG / Oxycodone Hydroch loride 10 MG Oral Tablet [Percocet] Percocet 10-325 MG Percocet 10-325 MG 01/22/2020 12:00:00 AM EST 1.0 {tablet_as_needed} active Percocet 10-3 25 MG eCW1 ([facility]) Acetaminophen 325 MG / Oxycodone Hydroch loride 10 MG Oral Tablet [Percocet] Percocet 10-325 MG Percocet 10-325 MG 01/22/2020 12:00:00 AM EST 1.0 {tablet_as_needed} active Percocet 10-3 25 MG eCW1 ([facility]) Morphine Sulfate ER 15 MG UNK 01/20/2020 12:00:00 AM EST 1.0 {tablet} active Morphine Sulfate ER 15 MG eCW1 ( [facility]) Morphine Sulfate ER 15 MG UNK 01/20/2020 12:00:00 AM EST 1.0 {tablet} active Morphine Sulfate ER 15 MG eCW1 ( [facility]) Morphine Sulfate ER 15 MG UNK 01/20/2020 12:00:00 AM EST 1.0 {tablet} active Morphine Sulfate ER 15 MG eCW1 ( [facility]) Morphine Sulfate ER 15 MG UNK 01/20/2020 12:00:00 AM EST 1.0 {tablet} active Morphine Sulfate ER 15 MG eCW1 ( [facility]) Morphine Sulfate ER 15 MG UNK 01/20/2020 12:00:00 AM EST 1.0 {tablet} active Morphine Sulfate ER 15 MG eCW1 ( [facility]) Morphine Sulfate ER 15 MG UNK 01/20/2020 12:00:00 AM EST 1.0 {tablet} active Morphine Sulfate ER 15 MG eCW1 ( [facility]) 1 gram 01/20/2020 12:00:00 AM EST tablet 90 TAKE ONE TABLET BY MOUTH THREE TIMES A DAY ON EMPTY STOMACH BEFORE MEAL TAKE ONE TABLET BY MOUTH THREE TIMES A DAY ON EMPTY STOMACH BEFORE MEAL SOLD: 01/21/2020 [facility] Morphine Sulfate ER 15 MG UNK 01/20/2020 12:00:00 AM EST 1.0 {tablet} active Morphine Sulfate ER 15 MG eCW1 ( [facility]) 40 mg 01/16/2020 12:00:00 AM EST capsule,delayed release (DR/EC) 30 TAKE ONE CAPSULE BY MOUTH 30 MINUTES BEFORE MORNING MEAL TAKE ONE CAPSULE BY MOUTH 30 MINUTES BEFORE MORNING MEAL SOLD: 01/20/2020 [facility] 1 gram 01/16/2020 12:00:00 AM EST tablet 30 TAKE ONE TABLET BY MOUTH ON AN EMPTY STOMACH BEFORE EACH MEAL TAKE ONE TABLET BY MOUTH ON AN EMPTY STO MACH BEFORE EACH MEAL SOLD: 01/20/2020 [facility] duloxetine 30 MG Delayed Release Oral Capsule [Cymbalt a] Cymbalta 30 MG Cymbalta 30 MG 01/13/2020 12:00:00 AM EST 1.0 {capsule} acti ve Cymbalta 30 MG eCW1 ([facility]) duloxetine 30 MG Delayed Release Oral Capsule [Cymbalt a] Cymbalta 30 MG Cymbalta 30 MG 01/13/2020 12:00:00 AM EST 1.0 {capsule} acti ve Cymbalta 30 MG eCW1 ([facility]) 30 mg 01/13/2020 12:00:00 AM EST capsule,delayed release (DR/EC) 60 TAKE ONE CAPSULE BY MOUTH TWICE A DAY TAKE ONE CAPSULE BY MOUTH TWICE A DAY SOLD: 01/20/2020 [facility] duloxetine 30 MG Delayed Release Oral Capsule [Cymbalt a] Cymbalta 30 MG Cymbalta 30 MG 01/13/2020 12:00:00 AM EST 1.0 {capsule} acti ve Cymbalta 30 MG eCW1 ([facility]) duloxetine 30 MG Delayed Release Oral Capsule [Cymbalt a] Cymbalta 30 MG Cymbalta 30 MG 01/13/2020 12:00:00 AM EST 1.0 {capsule} acti ve Cymbalta 30 MG eCW1 ([facility]) 30 mg 01/12/2020 12:00:00 AM EST capsule,delayed release (DR/EC) 60 TAKE ONE CAPSULE BY MOUTH TWICE A DAY FOR PAIN TAKE ONE CAPSULE BY MOUTH TWICE A DAY FO R PAIN SOLD: 01/12/2020 [facility] 10 mg 01/08/2020 12:00:00 AM EST tablet 30 TAKE ONE TABLET BY MOUTH EVERY DAY TAKE ONE TABLET BY MOUTH EVERY DAY SOLD: 01/08/2020 [facility] Amitriptyline Hydrochloride 25 MG Oral Tablet AMITRIPTYLINE HCL 01/05/2020 12:00:00 AM EST tablet 90 TAKE THREE TABLETS BY ADENIKE TH EVERY DAY TAKE THREE TABLETS BY MOUTH EVERY DAY SOLD: 01/20/2020 [facility] Amitriptyline Hydrochloride 25 MG Oral Tablet AMITRIPTYLINE HCL 01/05/2020 12:00:00 AM EST tablet 90 TAKE THREE TABLETS BY ADENIKE TH EVERY DAY TAKE THREE TABLETS BY MOUTH EVERY DAY SOLD: 01/05/2020 [facility] 81 mg 01/03/2020 12:00:00 AM EST tablet,chewable 30 CHEW ONE TABLET BY MOUTH EVERY DAY FOR PAIN CHEW ONE TABLET BY MOUTH EVERY DAY FOR PAIN SOLD: 12/13 [facility] 2 mg 12/31/2019 12:00:00 AM EST tablet 90 TAKE 1 TABLET BY MOUTH THREE TIMES A DAY NEEDED FOR ANXIETY MAXIMUM DAILY DOSE = 3 TABLETS TAKE 1 TABLET BY MOUTH THREE TIMES A DAY NEEDED FOR ANXIETY MAXIMUM DAILY DOSE = 3 TABLETS SOLD: 01/01/2020 [facility] 1.25 mcg/actuation 12/30/2019 12:00:00 AM EST mist 4 INHALE 2 PUFFS BY MOUTH ONCE DAILY INHALE 2 PUFFS BY MOUTH ONCE DAILY SOLD: 12/30/2019 [facility] Spiriva Respimat 1.25 MCG/ACT Spiriva Respimat 1.25 MCG/ACT 12/29/2019 12:00:00 AM EST 2.0 {puffs} active Spiriva Resp imat 1.25 MCG/ACT eCW1 ([facility]) Spiriva Respimat 1.25 MCG/ACT Spiriva Respimat 1.25 MCG/ACT 12/29/2019 12:00:00 AM EST 2.0 {puffs} active Spiriva Resp imat 1.25 MCG/ACT eCW1 ([facility]) Spiriva Respimat 1.25 MCG/ACT Spiriva Respimat 1.25 MCG/ACT 12/29/2019 12:00:00 AM EST 2.0 {puffs} suspended Spiriva R espimat 1.25 MCG/ACT eCW1 ([facility]) Spiriva Respimat 1.25 MCG/ACT Spiriva Respimat 1.25 MCG/ACT 12/29/2019 12:00:00 AM EST 2.0 {puffs} active Spiriva Resp imat 1.25 MCG/ACT eCW1 ([facility]) Spiriva Respimat 1.25 MCG/ACT Spiriva Respimat 1.25 MCG/ACT 12/29/2019 12:00:00 AM EST 2.0 {puffs} active Spiriva Resp imat 1.25 MCG/ACT eCW1 ([facility]) Spiriva Respimat 1.25 MCG/ACT Sp[facility] Respimat 1.25 MCG/ACT 12/29/2019 12:00:00 AM EST 2.0 {puffs} active Spiriva Resp imat 1.25 MCG/ACT eCW1 ([facility]) Spiriva Respimat 1.25 MCG/ACT Spiriva Respimat 1.25 MCG/ACT 12/29/2019 12:00:00 AM EST 2.0 {puffs} active Spiriva Resp imat 1.25 MCG/ACT eCW1 ([facility]) 250 mg 12/29/2019 12:00:00 AM EST tablet 30 TAKE ONE-HALF TABLET BY MOUTH TWICE A DAY TAKE ONE-HALF TABLET BY MOUTH TWICE A DAY SOLD: 12/29/2019 [facility] Spiriva Respimat 1.25 MCG/ACT Spiriva Respimat 1.25 MCG/ACT 12/29/2019 12:00:00 AM EST 2.0 {puffs} active Spiriva Resp imat 1.25 MCG/ACT eCW1 ([facility]) Spiriva Respimat 1.25 MCG/ACT Spiriva Respimat 1.25 MCG/ACT 12/29/2019 12:00:00 AM EST 2.0 {puffs} active Spiriva Resp imat 1.25 MCG/ACT eCW1 ([facility]) 20 mg 12/29/2019 12:00:00 AM EST tablet 90 TAKE ONE TABLET BY MOUTH THREE TIMES A DAY TAKE ONE TABLET BY MOUTH THREE TIMES A DAY SOLD: 01/26/2020 [facility] Spiriva Respimat 1.25 MCG/ACT Spiriva Respimat 1.25 MCG/ACT 12/29/2019 12:00:00 AM EST 2.0 {puffs} active Spiriva Resp imat 1.25 MCG/ACT eCW1 ([facility]) Spiriva Respimat 1.25 MCG/ACT Spiriva Respimat 1.25 MCG/ACT 12/29/2019 12:00:00 AM EST 2.0 {puffs} suspended Spiriva R espimat 1.25 MCG/ACT eCW1 ([facility]) Spiriva Respimat 1.25 MCG/ACT Spiriva Respimat 1.25 MCG/ACT 12/29/2019 12:00:00 AM EST 2.0 {puffs} suspended Spiriva R espimat 1.25 MCG/ACT eCW1 ([facility]) Spiriva Respimat 1.25 MCG/ACT Spiriva Respimat 1.25 MCG/ACT 12/29/2019 12:00:00 AM EST 2.0 {puffs} active Spiriva Resp imat 1.25 MCG/ACT eCW1 ([facility]) Spiriva Respimat 1.25 MCG/ACT Spiriva Respimat 1.25 MCG/ACT 12/29/2019 12:00:00 AM EST 2.0 {puffs} active Spiriva Resp imat 1.25 MCG/ACT eCW1 ([facility]) Spiriva Respimat 1.25 MCG/ACT Spiriva Respimat 1.25 MCG/ACT 12/29/2019 12:00:00 AM EST 2.0 {puffs} active Spiriva Resp imat 1.25 MCG/ACT eCW1 ([facility]) Spiriva Respimat 1.25 MCG/ACT Spiriva Respimat 1.25 MCG/ACT 12/29/2019 12:00:00 AM EST 2.0 {puffs} suspended Spiriva R espimat 1.25 MCG/ACT eCW1 ([facility]) Spiriva Respimat 1.25 MCG/ACT Spiriva Respimat 1.25 MCG/ACT 12/29/2019 12:00:00 AM EST 2.0 {puffs} suspended Spiriva R espimat 1.25 MCG/ACT eCW1 ([facility]) Spiriva Respimat 1.25 MCG/ACT Spiriva Respimat 1.25 MCG/ACT 12/29/2019 12:00:00 AM EST 2.0 {puffs} suspended Spiriva R espimat 1.25 MCG/ACT eCW1 ([facility]) Spiriva Respimat 1.25 MCG/ACT Spiriva Respimat 1.25 MCG/ACT 12/29/2019 12:00:00 AM EST 2.0 {puffs} active Spiriva Resp imat 1.25 MCG/ACT eCW1 ([facility]) Spiriva Respimat 1.25 MCG/ACT Spiriva Respimat 1.25 MCG/ACT 12/29/2019 12:00:00 AM EST 2.0 {puffs} active Spiriva Resp imat 1.25 MCG/ACT eCW1 ([facility]) Spiriva Respimat 1.25 MCG/ACT Spiriva Respimat 1.25 MCG/ACT 12/29/2019 12:00:00 AM EST 2.0 {puffs} active Spiriva Resp imat 1.25 MCG/ACT eCW1 ([facility]) Spiriva Respimat 1.25 MCG/ACT Spiriva Respimat 1.25 MCG/ACT 12/29/2019 12:00:00 AM EST 2.0 {puffs} active Spiriva Resp imat 1.25 MCG/ACT eCW1 ([facility]) Spiriva Respimat 1.25 MCG/ACT Spiriva Respimat 1.25 MCG/ACT 12/29/2019 12:00:00 AM EST 2.0 {puffs} active Spiriva Resp imat 1.25 MCG/ACT eCW1 ([facility]) Spiriva Respimat 1.25 MCG/ACT Spiriva Respimat 1.25 MCG/ACT 12/29/2019 12:00:00 AM EST 2.0 {puffs} active Spiriva Resp imat 1.25 MCG/ACT eCW1 ([facility]) Spiriva Respimat 1.25 MCG/ACT Spiriva Respimat 1.25 MCG/ACT 12/29/2019 12:00:00 AM EST 2.0 {puffs} suspended Spiriva R espimat 1.25 MCG/ACT eCW1 ([facility]) Spiriva Respimat 1.25 MCG/ACT Spiriva Respimat 1.25 MCG/ACT 12/29/2019 12:00:00 AM EST 2.0 {puffs} active Spiriva Resp imat 1.25 MCG/ACT eCW1 ([facility]) Spiriva Respimat 1.25 MCG/ACT Spiriva Respimat 1.25 MCG/ACT 12/29/2019 12:00:00 AM EST 2.0 {puffs} active Spiriva Resp imat 1.25 MCG/ACT eCW1 ([facility]) 20 mg 12/29/2019 12:00:00 AM EST tablet 90 TAKE ONE TABLET BY MOUTH THREE TIMES A DAY TAKE ONE TABLET BY MOUTH THREE TIMES A DAY SOLD: 12/30/2019 [facility] Spiriva Respimat 1.25 MCG/ACT Spiriva Respimat 1.25 MCG/ACT 12/29/2019 12:00:00 AM EST 2.0 {puffs} active Spiriva Resp imat 1.25 MCG/ACT eCW1 ([facility]) Spiriva Respimat 1.25 MCG/ACT Spiriva Respimat 1.25 MCG/ACT 12/29/2019 12:00:00 AM EST 2.0 {puffs} active Spiriva Resp imat 1.25 MCG/ACT eCW1 ([facility]) Spiriva Respimat 1.25 MCG/ACT Spiriva Respimat 1.25 MCG/ACT 12/29/2019 12:00:00 AM EST 2.0 {puffs} active Spiriva Resp imat 1.25 MCG/ACT eCW1 ([facility]) Spiriva Respimat 1.25 MCG/ACT Spiriva Respimat 1.25 MCG/ACT 12/29/2019 12:00:00 AM EST 2.0 {puffs} suspended Spiriva R espimat 1.25 MCG/ACT eCW1 ([facility]) Spiriva Respimat 1.25 MCG/ACT Spiriva Respimat 1.25 MCG/ACT 12/29/2019 12:00:00 AM EST 2.0 {puffs} active Spiriva Resp imat 1.25 MCG/ACT eCW1 ([facility]) Spiriva Respimat 1.25 MCG/ACT Spiriva Respimat 1.25 MCG/ACT 12/29/2019 12:00:00 AM EST 2.0 {puffs} active Spiriva Resp imat 1.25 MCG/ACT eCW1 ([facility]) Spiriva Respimat 1.25 MCG/ACT Spiriva Respimat 1.25 MCG/ACT 12/29/2019 12:00:00 AM EST 2.0 {puffs} suspended Spiriva R espimat 1.25 MCG/ACT eCW1 ([facility]) Spiriva Respimat 1.25 MCG/ACT Spiriva Respimat 1.25 MCG/ACT 12/29/2019 12:00:00 AM EST 2.0 {puffs} active Spiriva Resp imat 1.25 MCG/ACT eCW1 ([facility]) Spiriva Respimat 1.25 MCG/ACT Spiriva Respimat 1.25 MCG/ACT 12/29/2019 12:00:00 AM EST 2.0 {puffs} active Spiriva Resp imat 1.25 MCG/ACT eCW1 ([facility]) 2 mg 12/25/2019 12:00:00 AM EST tablet 30 TAKE ONE TABLET BY MOUTH THREE TIMES A DAY NEEDED FOR ANXIETY MAXIMUM DAILY DOSE = 3 TABLETS TAKE ONE TABLET BY MOUTH THREE TIMES A DAY NEEDED FOR ANXIETY MAXIMUM DAILY DOSE = 3 TABLETS SOLD: 12/25/2019 [facility] 20-100 mcg/actuation 12/23/2019 12:00:00 AM EST mist 4 INHALE ONE PUFF BY MOUTH FOUR TIMES A DAY INHALE ONE PUFF BY MOUTH FOUR TIMES A DAY SOLD: 12/24/2019 [facility] 20 mg 12/23/2019 12:00:00 AM EST tablet 5 TAKE ONE TABLET BY MOUTH EVERY DAY TAKE ONE TABLET BY MOUTH EVERY DAY SOLD: 12/24/2019 [facility] Sucralfate 1000 MG Oral Tablet Sucralfate 1 GM Sucralfate 1 GM 12/22/2019 12:00:00 AM EST 1.0 {tablet_on_an_empty_stomach} active Sucralfate 1 GM eCW1 ([facility]) Acetaminophen 325 MG / Oxycodone Hydroch loride 10 MG Oral Tablet [Percocet] Percocet 10-325 MG Percocet 10-325 MG 12/22/2019 12:00:00 AM EST 1.0 {tablet_as_needed} active Percocet 10-3 25 MG eCW1 ([facility]) Acetaminophen 325 MG / Oxycodone Hydroch loride 10 MG Oral Tablet [Percocet] Percocet 10-325 MG Percocet 10-325 MG 12/22/2019 12:00:00 AM EST 1.0 {tablet_as_needed} active Percocet 10-3 25 MG eCW1 ([facility]) Acetaminophen 325 MG / Oxycodone Hydroch loride 10 MG Oral Tablet [Percocet] Percocet 10-325 MG Percocet 10-325 MG 12/22/2019 12:00:00 AM EST 1.0 {tablet_as_needed} active Percocet 10-3 25 MG eCW1 ([facility]) Acetaminophen 325 MG / Oxycodone Hydroch loride 10 MG Oral Tablet [Percocet] Percocet 10-325 MG Percocet 10-325 MG 12/22/2019 12:00:00 AM EST 1.0 {tablet_as_needed} active Percocet 10-3 25 MG eCW1 ([facility]) Omeprazole 40 MG Delayed Release Oral Capsule Omeprazole 40 MG 12/22/2019 12:00:00 AM EST active Omeprazo le 40 MG eCW1 ([facility]) Acetaminophen 325 MG / Oxycodone Hydroch loride 10 MG Oral Tablet [Percocet] Percocet 10-325 MG Percocet 10-325 MG 12/22/2019 12:00:00 AM EST 1.0 {tablet_as_needed} active Percocet 10-3 25 MG eCW1 ([facility]) Omeprazole 40 MG Delayed Release Oral Capsule Omeprazole 40 MG 12/22/2019 12:00:00 AM EST active Omeprazo le 40 MG eCW1 ([facility]) Acetaminophen 325 MG / Oxycodone Hydroch loride 10 MG Oral Tablet [Percocet] Percocet 10-325 MG Percocet 10-325 MG 12/22/2019 12:00:00 AM EST 1.0 {tablet_as_needed} active Percocet 10-3 25 MG eCW1 ([facility]) Sucralfate 1000 MG Oral Tablet Sucralfate 1 GM Sucralfate 1 12/22/2019 12:00:00 AM EST 1.0 {tablet_on_an_empty_stomach} active Sucralfate 1 GM eCW1 ([facility]) Sucralfate 1000 MG Oral Tablet Sucralfate 1 GM Sucralfate 1 GM 12/22/2019 12:00:00 AM EST 1.0 {tablet_on_an_empty_stomach} active Sucralfate 1 GM eCW1 ([facility]) Omeprazole 40 MG Delayed Release Oral Capsule Omeprazole 40 MG 12/22/2019 12:00:00 AM EST active Omeprazo le 40 MG eCW1 ([facility]) Sucralfate 1000 MG Oral Tablet Sucralfate 1 GM Sucralfate 1 GM 12/22/2019 12:00:00 AM EST 1.0 {tablet_on_an_empty_stomach} active Sucralfate 1 GM eCW1 ([facility]) Sucralfate 1000 MG Oral Tablet Sucralfate 1 GM Sucralfate 1 GM 12/22/2019 12:00:00 AM EST 1.0 {tablet_on_an_empty_stomach} active Sucralfate 1 GM eCW1 ([facility]) Sucralfate 1000 MG Oral Tablet Sucralfate 1 GM Sucralfate 1 GM 12/22/2019 12:00:00 AM EST 1.0 {tablet_on_an_empty_stomach} active Sucralfate 1 GM eCW1 ([facility]) Acetaminophen 325 MG / Oxycodone Hydroch loride 10 MG Oral Tablet [Percocet] Percocet 10-325 MG Percocet 10-325 MG 12/22/2019 12:00:00 AM EST 1.0 {tablet_as_needed} active Percocet 10-3 25 MG eCW1 ([facility]) Acetaminophen 325 MG / Oxycodone Hydroch loride 10 MG Oral Tablet [Percocet] Percocet 10-325 MG Percocet 10-325 MG 12/22/2019 12:00:00 AM EST 1.0 {tablet_as_needed} active Percocet 10-3 25 MG eCW1 ([facility]) Omeprazole 40 MG Delayed Release Oral Capsule Omeprazole 40 MG 12/22/2019 12:00:00 AM EST active Omeprazo le 40 MG eCW1 ([facility]) Sucralfate 1000 MG Oral Tablet Sucralfate 1 GM Sucralfate 1 GM 12/22/2019 12:00:00 AM EST 1.0 {tablet_on_an_empty_stomach} active Sucralfate 1 GM eCW1 ([facility]) Sucralfate 1000 MG Oral Tablet Sucralfate 1 GM Sucralfate 1 GM 12/22/2019 12:00:00 AM EST 1.0 {tablet_on_an_empty_stomach} active Sucralfate 1 GM eCW1 ([facility]) Omeprazole 40 MG Delayed Release Oral Capsule Omeprazole 40 MG 12/22/2019 12:00:00 AM EST active Omeprazo le 40 MG eCW1 ([facility]) Acetaminophen 325 MG / Oxycodone Hydroch loride 10 MG Oral Tablet [Percocet] Percocet 10-325 MG Percocet 10-325 MG 12/22/2019 12:00:00 AM EST 1.0 {tablet_as_needed} active Percocet 10-3 25 MG eCW1 ([facility]) Omeprazole 40 MG Delayed Release Oral Capsule Omeprazole 40 MG 12/22/2019 12:00:00 AM EST active Omeprazo le 40 MG eCW1 ([facility]) Omeprazole 40 MG Delayed Release Oral Capsule Omeprazole 40 MG 12/22/2019 12:00:00 AM EST active Omeprazo le 40 MG eCW1 ([facility]) Sucralfate 1000 MG Oral Tablet Sucralfate 1 GM Sucralfate 1 GM 12/22/2019 12:00:00 AM EST 1.0 {tablet_on_an_empty_stomach} active Sucralfate 1 GM eCW1 ([facility]) Sucralfate 1000 MG Oral Tablet Sucralfate 1 GM Sucralfate 1 GM 12/22/2019 12:00:00 AM EST 1.0 {tablet_on_an_empty_stomach} active Sucralfate 1 GM eCW1 ([facility]) Acetaminophen 325 MG / Oxycodone Hydroch loride 10 MG Oral Tablet [Percocet] Percocet 10-325 MG Percocet 10-325 MG 12/22/2019 12:00:00 AM EST 1.0 {tablet_as_needed} active Percocet 10-3 25 MG eCW1 ([facility]) Acetaminophen 325 MG / Oxycodone Hydroch loride 10 MG Oral Tablet [Percocet] Percocet 10-325 MG Percocet 10-325 MG 12/22/2019 12:00:00 AM EST 1.0 {tablet_as_needed} active Percocet 10-3 25 MG eCW1 ([facility]) Omeprazole 40 MG Delayed Release Oral Capsule Omeprazole 40 MG 12/22/2019 12:00:00 AM EST active Omeprazo le 40 MG eCW1 ([facility]) 40 mg 12/22/2019 12:00:00 AM EST capsule,delayed release (DR/EC) 30 TAKE 1 CAPSULE BY MOUTH 30 MINS. BEFORE MORNING MEAL TAKE 1 CAPSULE BY MOUTH 30 MINS. BEFORE MORNING MEAL SOLD: 12/22/2019 [facility] Omeprazole 40 MG Delayed Release Oral Capsule Omeprazole 40 MG 12/22/2019 12:00:00 AM EST active Omeprazo le 40 MG eCW1 ([facility]) Omeprazole 40 MG Delayed Release Oral Capsule Omeprazole 40 MG 12/22/2019 12:00:00 AM EST active Omeprazo le 40 MG eCW1 ([facility]) Sucralfate 1000 MG Oral Tablet Sucralfate 1 GM Sucralfate 1 GM 12/22/2019 12:00:00 AM EST 1.0 {tablet_on_an_empty_stomach} active Sucralfate 1 GM eCW1 ([facility]) Omeprazole 40 MG Delayed Release Oral Capsule Omeprazole 40 MG 12/22/2019 12:00:00 AM EST active Omeprazo le 40 MG eCW1 ([facility]) Acetaminophen 325 MG / Oxycodone Hydroch loride 10 MG Oral Tablet [Percocet] Percocet 10-325 MG Percocet 10-325 MG 12/22/2019 12:00:00 AM EST 1.0 {tablet_as_needed} active Percocet 10-3 25 MG eCW1 ([facility]) Sucralfate 1000 MG Oral Tablet Sucralfate 1 GM Sucralfate 1 GM 12/22/2019 12:00:00 AM EST 1.0 {tablet_on_an_empty_stomach} active Sucralfate 1 GM eCW1 ([facility]) 1 gram 12/22/2019 12:00:00 AM EST tablet 90 TAKE 1 TABLET BY MOUTH ON AN EMPTY STOMACH BEFORE EACH MEAL TAKE 1 TABLET BY MOUTH ON AN EMPTY STOMA CH BEFORE EACH MEAL SOLD: 12/22/2019 [facility] Sucralfate 1000 MG Oral Tablet Sucralfate 1 GM Sucralfate 1 GM 12/22/2019 12:00:00 AM EST 1.0 {tablet_on_an_empty_stomach} active Sucralfate 1 GM eCW1 ([facility]) Acetaminophen 325 MG / Oxycodone Hydroch loride 10 MG Oral Tablet [Percocet] Percocet 10-325 MG Percocet 10-325 MG 12/22/2019 12:00:00 AM EST 1.0 {tablet_as_needed} active Percocet 10-3 25 MG eCW1 ([facility]) Sucralfate 1000 MG Oral Tablet Sucralfate 1 GM Sucralfate 1 GM 12/22/2019 12:00:00 AM EST 1.0 {tablet_on_an_empty_stomach} active Sucralfate 1 GM eCW1 ([facility]) Omeprazole 40 MG Delayed Release Oral Capsule Omeprazole 40 MG 12/22/2019 12:00:00 AM EST active Omeprazo le 40 MG eCW1 ([facility]) Sucralfate 1000 MG Oral Tablet Sucralfate 1 GM Sucralfate 1 GM 12/22/2019 12:00:00 AM EST 1.0 {tablet_on_an_empty_stomach} active Sucralfate 1 GM eCW1 ([facility]) Sucralfate 1000 MG Oral Tablet Sucralfate 1 GM Sucralfate 1 GM 12/22/2019 12:00:00 AM EST 1.0 {tablet_on_an_empty_stomach} active Sucralfate 1 GM eCW1 ([facility]) Sucralfate 1000 MG Oral Tablet Sucralfate 1 GM Sucralfate 1 GM 12/22/2019 12:00:00 AM EST 1.0 {tablet_on_an_empty_stomach} active Sucralfate 1 GM eCW1 ([facility]) Acetaminophen 325 MG / Oxycodone Hydroch loride 10 MG Oral Tablet [Percocet] Percocet 10-325 MG Percocet 10-325 MG 12/22/2019 12:00:00 AM EST 1.0 {tablet_as_needed} active Percocet 10-3 25 MG eCW1 ([facility]) Omeprazole 40 MG Delayed Release Oral Capsule Omeprazole 40 MG 12/22/2019 12:00:00 AM EST active Omeprazo le 40 MG eCW1 ([facility]) Sucralfate 1000 MG Oral Tablet Sucralfate 1 GM Sucralfate 1 GM 12/22/2019 12:00:00 AM EST 1.0 {tablet_on_an_empty_stomach} active Sucralfate 1 GM eCW1 ([facility]) Omeprazole 40 MG Delayed Release Oral Capsule Omeprazole 40 MG 12/22/2019 12:00:00 AM EST active Omeprazo le 40 MG eCW1 ([facility]) Omeprazole 40 MG Delayed Release Oral Capsule Omeprazole 40 MG 12/22/2019 12:00:00 AM EST active Omeprazo le 40 MG eCW1 ([facility]) Omeprazole 40 MG Delayed Release Oral Capsule Omeprazole 40 MG 12/22/2019 12:00:00 AM EST active Omeprazo le 40 MG eCW1 ([facility]) Acetaminophen 325 MG / Oxycodone Hydroch loride 10 MG Oral Tablet [Percocet] Percocet 10-325 MG Percocet 10-325 MG 12/22/2019 12:00:00 AM EST 1.0 {tablet_as_needed} active Percocet 10-3 25 MG eCW1 ([facility]) Omeprazole 40 MG Delayed Release Oral Capsule Omeprazole 40 MG 12/22/2019 12:00:00 AM EST active Omeprazo le 40 MG eCW1 ([facility]) Acetaminophen 325 MG / Oxycodone Hydroch loride 10 MG Oral Tablet [Percocet] Percocet 10-325 MG Percocet 10-325 MG 12/22/2019 12:00:00 AM EST 1.0 {tablet_as_needed} active Percocet 10-3 25 MG eCW1 ([facility]) Acetaminophen 325 MG / Oxycodone Hydroch loride 10 MG Oral Tablet [Percocet] Percocet 10-325 MG Percocet 10-325 MG 12/22/2019 12:00:00 AM EST 1.0 {tablet_as_needed} active Percocet 10-3 25 MG eCW1 ([facility]) Acetaminophen 325 MG / Oxycodone Hydroch loride 10 MG Oral Tablet [Percocet] Percocet 10-325 MG Percocet 10-325 MG 12/22/2019 12:00:00 AM EST 1.0 {tablet_as_needed} active Percocet 10-3 25 MG eCW1 ([facility]) Omeprazole 40 MG Delayed Release Oral Capsule Omeprazole 40 MG 12/22/2019 12:00:00 AM EST active Omeprazo le 40 MG eCW1 ([facility]) Sucralfate 1000 MG Oral Tablet Sucralfate 1 GM Sucralfate 1 GM 12/22/2019 12:00:00 AM EST 1.0 {tablet_on_an_empty_stomach} active Sucralfate 1 GM eCW1 ([facility]) Acetaminophen 325 MG / Oxycodone Hydroch loride 10 MG Oral Tablet [Percocet] Percocet 10-325 MG Percocet 10-325 MG 12/22/2019 12:00:00 AM EST 1.0 {tablet_as_needed} active Percocet 10-3 25 MG eCW1 ([facility]) Sucralfate 1000 MG Oral Tablet Sucralfate 1 GM Sucralfate 1 GM 12/22/2019 12:00:00 AM EST 1.0 {tablet_on_an_empty_stomach} active Sucralfate 1 GM eCW1 ([facility]) Omeprazole 40 MG Delayed Release Oral Capsule Omeprazole 40 MG 12/22/2019 12:00:00 AM EST active Omeprazo le 40 MG eCW1 ([facility]) Sucralfate 1000 MG Oral Tablet Sucralfate 1 GM Sucralfate 1 GM 12/22/2019 12:00:00 AM EST 1.0 {tablet_on_an_empty_stomach} active Sucralfate 1 GM eCW1 ([facility]) Omeprazole 40 MG Delayed Release Oral Capsule Omeprazole 40 MG 12/22/2019 12:00:00 AM EST active Omeprazo le 40 MG eCW1 ([facility]) Sucralfate 1000 MG Oral Tablet Sucralfate 1 GM Sucralfate 1 GM 12/22/2019 12:00:00 AM EST 1.0 {tablet_on_an_empty_stomach} active Sucralfate 1 GM eCW1 ([facility]) Omeprazole 40 MG Delayed Release Oral Capsule Omeprazole 40 MG 12/22/2019 12:00:00 AM EST active Omeprazo le 40 MG eCW1 ([facility]) Omeprazole 40 MG Delayed Release Oral Capsule Omeprazole 40 MG 12/22/2019 12:00:00 AM EST active Omeprazo le 40 MG eCW1 ([facility]) Omeprazole 40 MG Delayed Release Oral Capsule Omeprazole 40 MG 12/22/2019 12:00:00 AM EST active Omeprazo le 40 MG eCW1 ([facility]) Omeprazole 40 MG Delayed Release Oral Capsule Omeprazole 40 MG 12/22/2019 12:00:00 AM EST active Omeprazo le 40 MG eCW1 ([facility]) Omeprazole 40 MG Delayed Release Oral Capsule Omeprazole 40 MG 12/22/2019 12:00:00 AM EST active Omeprazo le 40 MG eCW1 ([facility]) Acetaminophen 325 MG / Oxycodone Hydroch loride 10 MG Oral Tablet [Percocet] Percocet 10-325 MG Percocet 10-325 MG 12/22/2019 12:00:00 AM EST 1.0 {tablet_as_needed} active Percocet 10-3 25 MG eCW1 ([facility]) Acetaminophen 325 MG / Oxycodone Hydroch loride 10 MG Oral Tablet [Percocet] Percocet 10-325 MG Percocet 10-325 MG 12/22/2019 12:00:00 AM EST 1.0 {tablet_as_needed} active Percocet 10-3 25 MG eCW1 ([facility]) Sucralfate 1000 MG Oral Tablet Sucralfate 1 GM Sucralfate 1 GM 12/22/2019 12:00:00 AM EST 1.0 {tablet_on_an_empty_stomach} active Sucralfate 1 GM eCW1 ([facility]) Sucralfate 1000 MG Oral Tablet Sucralfate 1 GM Sucralfate 1 GM 12/22/2019 12:00:00 AM EST 1.0 {tablet_on_an_empty_stomach} active Sucralfate 1 GM eCW1 ([facility]) Sucralfate 1000 MG Oral Tablet Sucralfate 1 GM Sucralfate 1 GM 12/22/2019 12:00:00 AM EST 1.0 {tablet_on_an_empty_stomach} active Sucralfate 1 GM eCW1 ([facility]) Omeprazole 40 MG Delayed Release Oral Capsule Omeprazole 40 MG 12/22/2019 12:00:00 AM EST active Omeprazo le 40 MG eCW1 ([facility]) Acetaminophen 325 MG / Oxycodone Hydroch loride 10 MG Oral Tablet [Percocet] Percocet 10-325 MG Percocet 10-325 MG 12/22/2019 12:00:00 AM EST 1.0 {tablet_as_needed} active Percocet 10-3 25 MG eCW1 ([facility]) Sucralfate 1000 MG Oral Tablet Sucralfate 1 GM Sucralfate 1 GM 12/22/2019 12:00:00 AM EST 1.0 {tablet_on_an_empty_stomach} active Sucralfate 1 GM eCW1 ([facility]) Acetaminophen 325 MG / Oxycodone Hydroch loride 10 MG Oral Tablet [Percocet] Percocet 10-325 MG Percocet 10-325 MG 12/22/2019 12:00:00 AM EST 1.0 {tablet_as_needed} active Percocet 10-3 25 MG eCW1 ([facility]) Sucralfate 1000 MG Oral Tablet Sucralfate 1 GM Sucralfate 1 GM 12/22/2019 12:00:00 AM EST 1.0 {tablet_on_an_empty_stomach} active Sucralfate 1 GM eCW1 ([facility]) Omeprazole 40 MG Delayed Release Oral Capsule Omeprazole 40 MG 12/22/2019 12:00:00 AM EST active Omeprazo le 40 MG eCW1 ([facility]) Acetaminophen 325 MG / Oxycodone Hydroch loride 10 MG Oral Tablet [Percocet] Percocet 10-325 MG Percocet 10-325 MG 12/22/2019 12:00:00 AM EST 1.0 {tablet_as_needed} active Percocet 10-3 25 MG eCW1 ([facility]) Omeprazole 40 MG Delayed Release Oral Capsule Omeprazole 40 MG 12/22/2019 12:00:00 AM EST active Omeprazo le 40 MG eCW1 ([facility]) Sucralfate 1000 MG Oral Tablet Sucralfate 1 GM Sucralfate 1 GM 12/22/2019 12:00:00 AM EST 1.0 {tablet_on_an_empty_stomach} active Sucralfate 1 GM eCW1 ([facility]) Sucralfate 1000 MG Oral Tablet Sucralfate 1 GM Sucralfate 1 GM 12/22/2019 12:00:00 AM EST 1.0 {tablet_on_an_empty_stomach} active Sucralfate 1 GM eCW1 ([facility]) Omeprazole 40 MG Delayed Release Oral Capsule Omeprazole 40 MG 12/22/2019 12:00:00 AM EST active Omeprazo le 40 MG eCW1 ([facility]) Omeprazole 40 MG Delayed Release Oral Capsule Omeprazole 40 MG 12/22/2019 12:00:00 AM EST active Omeprazo le 40 MG eCW1 ([facility]) Sucralfate 1000 MG Oral Tablet Sucralfate 1 GM Sucralfate 1 GM 12/22/2019 12:00:00 AM EST 1.0 {tablet_on_an_empty_stomach} active Sucralfate 1 GM eCW1 ([facility]) Omeprazole 40 MG Delayed Release Oral Capsule Omeprazole 40 MG 12/22/2019 12:00:00 AM EST active Omeprazo le 40 MG eCW1 ([facility]) Acetaminophen 325 MG / Oxycodone Hydroch loride 10 MG Oral Tablet [Percocet] Percocet 10-325 MG Percocet 10-325 MG 12/22/2019 12:00:00 AM EST 1.0 {tablet_as_needed} active Percocet 10-3 25 MG eCW1 ([facility]) Sucralfate 1000 MG Oral Tablet Sucralfate 1 GM Sucralfate 1 GM 12/22/2019 12:00:00 AM EST 1.0 {tablet_on_an_empty_stomach} active Sucralfate 1 GM eCW1 ([facility]) Sucralfate 1000 MG Oral Tablet Sucralfate 1 GM Sucralfate 1 GM 12/22/2019 12:00:00 AM EST 1.0 {tablet_on_an_empty_stomach} active Sucralfate 1 GM eCW1 ([facility]) Omeprazole 40 MG Delayed Release Oral Capsule Omeprazole 40 MG 12/22/2019 12:00:00 AM EST active Omeprazo le 40 MG eCW1 ([facility]) Sucralfate 1000 MG Oral Tablet Sucralfate 1 GM Sucralfate 1 GM 12/22/2019 12:00:00 AM EST 1.0 {tablet_on_an_empty_stomach} active Sucralfate 1 GM eCW1 ([facility]) Sucralfate 1000 MG Oral Tablet Sucralfate 1 GM Sucralfate 1 GM 12/22/2019 12:00:00 AM EST 1.0 {tablet_on_an_empty_stomach} active Sucralfate 1 GM eCW1 ([facility]) Omeprazole 40 MG Delayed Release Oral Capsule Omeprazole 40 MG 12/22/2019 12:00:00 AM EST active Omeprazo le 40 MG eCW1 ([facility]) Omeprazole 40 MG Delayed Release Oral Capsule Omeprazole 40 MG 12/22/2019 12:00:00 AM EST active Omeprazo le 40 MG eCW1 ([facility]) Omeprazole 40 MG Delayed Release Oral Capsule Omeprazole 40 MG 12/22/2019 12:00:00 AM EST active Omeprazo le 40 MG eCW1 ([facility]) Sucralfate 1000 MG Oral Tablet Sucralfate 1 GM Sucralfate 1 12/22/2019 12:00:00 AM EST 1.0 {tablet_on_an_empty_stomach} active Sucralfate 1 GM eCW1 ([facility]) Sucralfate 1000 MG Oral Tablet Sucralfate 1 GM Sucralfate 1 GM 12/22/2019 12:00:00 AM EST 1.0 {tablet_on_an_empty_stomach} active Sucralfate 1 GM eCW1 ([facility]) Omeprazole 40 MG Delayed Release Oral Capsule Omeprazole 40 MG 12/22/2019 12:00:00 AM EST active Omeprazo le 40 MG eCW1 ([facility]) Sucralfate 1000 MG Oral Tablet Sucralfate 1 GM Sucralfate 1 GM 12/22/2019 12:00:00 AM EST 1.0 {tablet_on_an_empty_stomach} active Sucralfate 1 GM eCW1 ([facility]) Omeprazole 40 MG Delayed Release Oral Capsule Omeprazole 40 MG 12/22/2019 12:00:00 AM EST active Omeprazo le 40 MG eCW1 ([facility]) Omeprazole 40 MG Delayed Release Oral Capsule Omeprazole 40 MG 12/22/2019 12:00:00 AM EST active Omeprazo le 40 MG eCW1 ([facility]) Omeprazole 40 MG Delayed Release Oral Capsule Omeprazole 40 MG 12/22/2019 12:00:00 AM EST active Omeprazo le 40 MG eCW1 ([facility]) Acetaminophen 325 MG / Oxycodone Hydroch loride 10 MG Oral Tablet [Percocet] Percocet 10-325 MG Percocet 10-325 MG 12/22/2019 12:00:00 AM EST 1.0 {tablet_as_needed} active Percocet 10-3 25 MG eCW1 ([facility]) Omeprazole 40 MG Delayed Release Oral Capsule Omeprazole 40 MG 12/22/2019 12:00:00 AM EST active Omeprazo le 40 MG eCW1 ([facility]) Acetaminophen 325 MG / Oxycodone Hydroch loride 10 MG Oral Tablet [Percocet] Percocet 10-325 MG Percocet 10-325 MG 12/22/2019 12:00:00 AM EST 1.0 {tablet_as_needed} active Percocet 10-3 25 MG eCW1 ([facility]) Omeprazole 40 MG Delayed Release Oral Capsule Omeprazole 40 MG 12/22/2019 12:00:00 AM EST active Omeprazo le 40 MG eCW1 ([facility]) Acetaminophen 325 MG / Oxycodone Hydroch loride 10 MG Oral Tablet [Percocet] Percocet 10-325 MG Percocet 10-325 MG 12/22/2019 12:00:00 AM EST 1.0 {tablet_as_needed} active Percocet 10-3 25 MG eCW1 ([facility]) Sucralfate 1000 MG Oral Tablet Sucralfate 1 GM Sucralfate 1 GM 12/22/2019 12:00:00 AM EST 1.0 {tablet_on_an_empty_stomach} active Sucralfate 1 GM eCW1 ([facility]) Omeprazole 40 MG Delayed Release Oral Capsule Omeprazole 40 MG 12/22/2019 12:00:00 AM EST active Omeprazo le 40 MG eCW1 ([facility]) Omeprazole 40 MG Delayed Release Oral Capsule Omeprazole 40 MG 12/22/2019 12:00:00 AM EST active Omeprazo le 40 MG eCW1 ([facility]) Sucralfate 1000 MG Oral Tablet Sucralfate 1 GM Sucralfate 1 GM 12/22/2019 12:00:00 AM EST 1.0 {tablet_on_an_empty_stomach} active Sucralfate 1 GM eCW1 ([facility]) Omeprazole 40 MG Delayed Release Oral Capsule Omeprazole 40 MG 12/22/2019 12:00:00 AM EST active Omeprazo le 40 MG eCW1 ([facility]) Omeprazole 40 MG Delayed Release Oral Capsule Omeprazole 40 MG 12/22/2019 12:00:00 AM EST active Omeprazo le 40 MG eCW1 ([facility]) Acetaminophen 325 MG / Oxycodone Hydroch loride 10 MG Oral Tablet [Percocet] Percocet 10-325 MG Percocet 10-325 MG 12/22/2019 12:00:00 AM EST 1.0 {tablet_as_needed} active Percocet 10-3 25 MG eCW1 ([facility]) Acetaminophen 325 MG / Oxycodone Hydroch loride 10 MG Oral Tablet [Percocet] Percocet 10-325 MG Percocet 10-325 MG 12/22/2019 12:00:00 AM EST 1.0 {tablet_as_needed} active Percocet 10-3 25 MG eCW1 ([facility]) Acetaminophen 325 MG / Oxycodone Hydroch loride 10 MG Oral Tablet [Percocet] Percocet 10-325 MG Percocet 10-325 MG 12/22/2019 12:00:00 AM EST 1.0 {tablet_as_needed} active Percocet 10-3 25 MG eCW1 ([facility]) Omeprazole 40 MG Delayed Release Oral Capsule Omeprazole 40 MG 12/22/2019 12:00:00 AM EST active Omeprazo le 40 MG eCW1 ([facility]) Sucralfate 1000 MG Oral Tablet Sucralfate 1 GM Sucralfate 1 GM 12/22/2019 12:00:00 AM EST 1.0 {tablet_on_an_empty_stomach} active Sucralfate 1 GM eCW1 ([facility]) Sucralfate 1000 MG Oral Tablet Sucralfate 1 GM Sucralfate 1 GM 12/22/2019 12:00:00 AM EST 1.0 {tablet_on_an_empty_stomach} active Sucralfate 1 GM eCW1 ([facility]) Sucralfate 1000 MG Oral Tablet Sucralfate 1 GM Sucralfate 1 GM 12/22/2019 12:00:00 AM EST 1.0 {tablet_on_an_empty_stomach} active Sucralfate 1 GM eCW1 ([facility]) Sucralfate 1000 MG Oral Tablet Sucralfate 1 GM Sucralfate 1 GM 12/22/2019 12:00:00 AM EST 1.0 {tablet_on_an_empty_stomach} active Sucralfate 1 GM eCW1 ([facility]) 10-325 mg 12/22/2019 12:00:00 AM EST tablet 90 TAKE ONE TABLET BY MOUTH EVERY 6 HOURS MAXIMUM DAILY DOSE = 4 TABLETS TAKE ONE TABLET BY MOUTH EVERY 6 HOURS MAXIMUM DAILY DOSE = 4 TABLETS SOLD: 12/22/2019 [facility] Acetaminophen 325 MG / Oxycodone Hydroch loride 10 MG Oral Tablet [Percocet] Percocet 10-325 MG Percocet 10-325 MG 12/22/2019 12:00:00 AM EST 1.0 {tablet_as_needed} active Percocet 10-3 25 MG eCW1 ([facility]) Omeprazole 40 MG Delayed Release Oral Capsule Omeprazole 40 MG 12/22/2019 12:00:00 AM EST active Omeprazo le 40 MG eCW1 ([facility]) Acetaminophen 325 MG / Oxycodone Hydroch loride 10 MG Oral Tablet [Percocet] Percocet 10-325 MG Percocet 10-325 MG 12/22/2019 12:00:00 AM EST 1.0 {tablet_as_needed} active Percocet 10-3 25 MG eCW1 ([facility]) Omeprazole 40 MG Delayed Release Oral Capsule Omeprazole 40 MG 12/22/2019 12:00:00 AM EST active Omeprazo le 40 MG eCW1 ([facility]) Acetaminophen 325 MG / Oxycodone Hydroch loride 10 MG Oral Tablet [Percocet] Percocet 10-325 MG Percocet 10-325 MG 12/22/2019 12:00:00 AM EST 1.0 {tablet_as_needed} active Percocet 10-3 25 MG eCW1 ([facility]) Omeprazole 40 MG Delayed Release Oral Capsule Omeprazole 40 MG 12/22/2019 12:00:00 AM EST active Omeprazo le 40 MG eCW1 ([facility]) Omeprazole 40 MG Delayed Release Oral Capsule Omeprazole 40 MG 12/22/2019 12:00:00 AM EST active Omeprazo le 40 MG eCW1 ([facility]) Sucralfate 1000 MG Oral Tablet Sucralfate 1 GM Sucralfate 1 GM 12/22/2019 12:00:00 AM EST 1.0 {tablet_on_an_empty_stomach} active Sucralfate 1 GM eCW1 ([facility]) Sucralfate 1000 MG Oral Tablet Sucralfate 1 GM Sucralfate 1 GM 12/22/2019 12:00:00 AM EST 1.0 {tablet_on_an_empty_stomach} active Sucralfate 1 GM eCW1 ([facility]) Sucralfate 1000 MG Oral Tablet Sucralfate 1 GM Sucralfate 1 GM 12/22/2019 12:00:00 AM EST 1.0 {tablet_on_an_empty_stomach} active Sucralfate 1 GM eCW1 ([facility]) Acetaminophen 325 MG / Oxycodone Hydroch loride 10 MG Oral Tablet [Percocet] Percocet 10-325 MG Percocet 10-325 MG 12/22/2019 12:00:00 AM EST 1.0 {tablet_as_needed} active Percocet 10-3 25 MG eCW1 ([facility]) Sucralfate 1000 MG Oral Tablet Sucralfate 1 GM Sucralfate 1 GM 12/22/2019 12:00:00 AM EST 1.0 {tablet_on_an_empty_stomach} active Sucralfate 1 GM eCW1 ([facility]) Sucralfate 1000 MG Oral Tablet Sucralfate 1 GM Sucralfate 1 GM 12/22/2019 12:00:00 AM EST 1.0 {tablet_on_an_empty_stomach} active Sucralfate 1 GM eCW1 ([facility]) Sucralfate 1000 MG Oral Tablet Sucralfate 1 GM Sucralfate 1 GM 12/22/2019 12:00:00 AM EST 1.0 {tablet_on_an_empty_stomach} active Sucralfate 1 GM eCW1 ([facility]) Omeprazole 40 MG Delayed Release Oral Capsule Omeprazole 40 MG 12/22/2019 12:00:00 AM EST active Omeprazo le 40 MG eCW1 ([facility]) Sucralfate 1000 MG Oral Tablet Sucralfate 1 GM Sucralfate 1 GM 12/22/2019 12:00:00 AM EST 1.0 {tablet_on_an_empty_stomach} active Sucralfate 1 GM eCW1 ([facility]) Sucralfate 1000 MG Oral Tablet Sucralfate 1 GM Sucralfate 1 GM 12/22/2019 12:00:00 AM EST 1.0 {tablet_on_an_empty_stomach} active Sucralfate 1 GM eCW1 ([facility]) Amlodipine 5 MG / valsartan 160 MG Oral Tablet 5-160 m g AMLODIPINE BESYLATE/VALSARTAN 12/19/2019 12:00:00 AM EST tablet 90 TAKE ONE TABLET BY MOUTH EVERY DAY TAKE ONE TABLET BY MOUTH EVERY DAY SOLD: 12/19/2019 [facility] 350 mg 12/12/2019 12:00:00 AM EDT tablet 90 TAKE ONE TABLET BY MOUTH EVERY 8 HOURS * MAXIMUM DAILY DOSE = 3 TABLETS TAKE ONE TABLET BY MOUTH EVERY 8 HOURS * MAXIMUM DAILY DOSE = 3 TABLETS SOLD: 12/13/2019 [facility] 2 mg 12/11/2019 12:00:00 AM EDT tablet 60 TAKE ONE TABLET BY MOUTH TWICE A DAY NEEDED * MAXIMUM DAILY DOSE = 2 TAKE ONE TABLET BY MOUTH TWICE A DAY NEEDED * MAXIMUM DAILY DOSE = 2 SOLD: 12/11/2019 [facility] 15 mg 12/11/2019 12:00:00 AM EDT tablet extended release 90 TAKE ONE TABLET BY MOUTH EVERY 8 HOURS THREE TIMES A DAY MAXIMUM DAILY DOSE = 3 TABLETS TAKE ONE TABLET BY MOUTH EVERY 8 HOURS THREE TIMES A DAY MAXIMUM DAILY DOSE = 3 TABLETS SOLD: 12/13/2019 [facility] 20 mg 12/06/2019 12:00:00 AM EDT tablet 60 TAKE ONE TABLET BY MOUTH TWICE A DAY TAKE ONE TABLET BY MOUTH TWICE A DAY SOLD: 12/06/2019 [facility] 250 mg 12/01/2019 12:00:00 AM EDT tablet 30 TAKE 1/2 TABLET BY MOUTH TWO TIMES A DAY TAKE 1/2 TABLET BY MOUTH TWO TIMES A DAY SOLD: 12/01/2019 [facility] 60 mg 11/25/2019 12:00:00 AM EDT capsule,delayed release (DR/EC) 30 TAKE ONE CAPSULE BY MOUTH EVERY DAY TAKE ONE CAPSULE BY MOUTH EVERY DAY SOLD: 11/25/2019 [facility] Acetaminophen 325 MG / Oxycodone Hydroch loride 10 MG Oral Tablet [Percocet] Percocet 10-325 MG Percocet 10-325 MG 11/24/2019 12:00:00 AM EDT 1.0 {tablet_as_needed} active Percocet 10-3 25 MG eCW1 ([facility]) Acetaminophen 325 MG / Oxycodone Hydroch loride 10 MG Oral Tablet [Percocet] Percocet 10-325 MG Percocet 10-325 MG 11/24/2019 12:00:00 AM EDT 1.0 {tablet_as_needed} active Percocet 10-3 25 MG eCW1 ([facility]) Acetaminophen 325 MG / Oxycodone Hydroch loride 10 MG Oral Tablet [Percocet] Percocet 10-325 MG Percocet 10-325 MG 11/24/2019 12:00:00 AM EDT 1.0 {tablet_as_needed} active Percocet 10-3 25 MG eCW1 ([facility]) Acetaminophen 325 MG / Oxycodone Hydroch loride 10 MG Oral Tablet [Percocet] Percocet 10-325 MG Percocet 10-325 MG 11/24/2019 12:00:00 AM EDT 1.0 {tablet_as_needed} active Percocet 10-3 25 MG eCW1 ([facility]) Acetaminophen 325 MG / Oxycodone Hydroch loride 10 MG Oral Tablet [Percocet] Percocet 10-325 MG Percocet 10-325 MG 11/24/2019 12:00:00 AM EDT 1.0 {tablet_as_needed} active Percocet 10-3 25 MG eCW1 ([facility]) 10-325 mg 11/24/2019 12:00:00 AM EDT tablet 90 TAKE ONE TABLET BY MOUTH EVERY 6 HOURS NEEDED MAXIMUM DAILY DOSE = 4 TABLETS SHOULD LAST 30 DAYS TAKE ONE TABLET BY MOUTH EVERY 6 HOURS NEEDED MAXIMUM DAILY DOSE = 4 TABLETS SHOULD LAST 30 DAYS SOLD: 11/25/2019 [facility] Acetaminophen 325 MG / Oxycodone Hydroch loride 10 MG Oral Tablet [Percocet] Percocet 10-325 MG Percocet 10-325 MG 11/24/2019 12:00:00 AM EDT 1.0 {tablet_as_needed} active Percocet 10-3 25 MG eCW1 ([facility]) Acetaminophen 325 MG / Oxycodone Hydroch loride 10 MG Oral Tablet [Percocet] Percocet 10-325 MG Percocet 10-325 MG 11/24/2019 12:00:00 AM EDT 1.0 {tablet_as_needed} active Percocet 10-3 25 MG eCW1 ([facility]) Acetaminophen 325 MG / Oxycodone Hydroch loride 10 MG Oral Tablet [Percocet] Percocet 10-325 MG Percocet 10-325 MG 11/24/2019 12:00:00 AM EDT 1.0 {tablet_as_needed} active Percocet 10-3 25 MG eCW1 ([facility]) Acetaminophen 325 MG / Oxycodone Hydroch loride 10 MG Oral Tablet [Percocet] Percocet 10-325 MG Percocet 10-325 MG 11/24/2019 12:00:00 AM EDT 1.0 {tablet_as_needed} active Percocet 10-3 25 MG eCW1 ([facility]) Acetaminophen 325 MG / Oxycodone Hydroch loride 10 MG Oral Tablet [Percocet] Percocet 10-325 MG Percocet 10-325 MG 11/24/2019 12:00:00 AM EDT 1.0 {tablet_as_needed} active Percocet 10-3 25 MG eCW1 ([facility]) Acetaminophen 325 MG / Oxycodone Hydroch loride 10 MG Oral Tablet [Percocet] Percocet 10-325 MG Percocet 10-325 MG 11/24/2019 12:00:00 AM EDT 1.0 {tablet_as_needed} active Percocet 10-3 25 MG eCW1 ([facility]) Acetaminophen 325 MG / Oxycodone Hydroch loride 10 MG Oral Tablet [Percocet] Percocet 10-325 MG Percocet 10-325 MG 11/24/2019 12:00:00 AM EDT 1.0 {tablet_as_needed} active Percocet 10-3 25 MG eCW1 ([facility]) Acetaminophen 325 MG / Oxycodone Hydroch loride 10 MG Oral Tablet [Percocet] Percocet 10-325 MG Percocet 10-325 MG 11/24/2019 12:00:00 AM EDT 1.0 {tablet_as_needed} active Percocet 10-3 25 MG eCW1 ([facility]) Acetaminophen 325 MG / Oxycodone Hydroch loride 10 MG Oral Tablet [Percocet] Percocet 10-325 MG Percocet 10-325 MG 11/24/2019 12:00:00 AM EDT 1.0 {tablet_as_needed} active Percocet 10-3 25 MG eCW1 ([facility]) Acetaminophen 325 MG / Oxycodone Hydroch loride 10 MG Oral Tablet [Percocet] Percocet 10-325 MG Percocet 10-325 MG 11/24/2019 12:00:00 AM EDT 1.0 {tablet_as_needed} active Percocet 10-3 25 MG eCW1 ([facility]) Acetaminophen 325 MG / Oxycodone Hydroch loride 10 MG Oral Tablet [Percocet] Percocet 10-325 MG Percocet 10-325 MG 11/24/2019 12:00:00 AM EDT 1.0 {tablet_as_needed} active Percocet 10-3 25 MG eCW1 ([facility]) Acetaminophen 325 MG / Oxycodone Hydroch loride 10 MG Oral Tablet [Percocet] Percocet 10-325 MG Percocet 10-325 MG 11/24/2019 12:00:00 AM EDT 1.0 {tablet_as_needed} active Percocet 10-3 25 MG eCW1 ([facility]) Acetaminophen 325 MG / Oxycodone Hydroch loride 10 MG Oral Tablet [Percocet] Percocet 10-325 MG Percocet 10-325 MG 11/24/2019 12:00:00 AM EDT 1.0 {tablet_as_needed} active Percocet 10-3 25 MG eCW1 ([facility]) atorvastatin 40 MG Oral Tablet ATORVASTATIN CALCIUM 11/18/2019 1 2:00:00 AM EDT tablet 90 TAKE ONE TABLET BY MOUTH EVERY D AY TAKE ONE TABLET BY MOUTH EVERY DAY SOLD: 11/19/2019 [facility] 2 mg 11/12/2019 12:00:00 AM EDT tablet 60 TAKE ONE TABLET BY MOUTH TWICE A DAY NEEDED, MAXIMUM DAILY DOSE = 2 TABLETS TAKE ONE TABLET BY MOUTH TWICE A DAY NEEDED, MAXIMUM DAILY DOSE = 2 TABLETS SOLD: 11/12/2019 [facility] Diazepam 2 MG Oral Tablet Diazepam 2 MG 11/10/2019 12:00:00 AM EDT 1.0 {tablet_as_needed} active Diazepam 2 MG eCW1 ([facility]) Diazepam 2 MG Oral Tablet Diazepam 2 MG 11/10/2019 12:00:00 AM EDT active Diazepam 2 MG eCW1 ([facility]) Diazepam 2 MG Oral Tablet Diazepam 2 MG 11/10/2019 12:00:00 AM EDT 1.0 {tablet_as_needed} active Diazepam 2 MG eCW1 ([facility]) Diazepam 2 MG Oral Tablet Diazepam 2 MG 11/10/2019 12:00:00 AM EDT 1.0 {tablet_as_needed} active Diazepam 2 MG eCW1 ([facility]) Diazepam 2 MG Oral Tablet Diazepam 2 MG 11/10/2019 12:00:00 AM EDT 1.0 {tablet_as_needed} active Diazepam 2 MG eCW1 ([facility]) Diazepam 2 MG Oral Tablet Diazepam 2 MG 11/10/2019 12:00:00 AM EDT active Diazepam 2 MG eCW1 ([facility]) Diazepam 2 MG Oral Tablet Diazepam 2 MG 11/10/2019 12:00:00 AM EDT 1.0 {tablet_as_needed} active Diazepam 2 MG eCW1 ([facility]) Diazepam 2 MG Oral Tablet Diazepam 2 MG 11/10/2019 12:00:00 AM EDT active Diazepam 2 MG eCW1 ([facility]) Diazepam 2 MG Oral Tablet Diazepam 2 MG 11/10/2019 12:00:00 AM EDT active Diazepam 2 MG eCW1 ([facility]) Diazepam 2 MG Oral Tablet Diazepam 2 MG 11/10/2019 12:00:00 AM EDT 1.0 {tablet_as_needed} active Diazepam 2 MG eCW1 ([facility]) Diazepam 2 MG Oral Tablet Diazepam 2 MG 11/10/2019 12:00:00 AM EDT 1.0 {tablet_as_needed} active Diazepam 2 MG eCW1 ([facility]) Diazepam 2 MG Oral Tablet Diazepam 2 MG 11/10/2019 12:00:00 AM EDT active Diazepam 2 MG eCW1 ([facility]) Diazepam 2 MG Oral Tablet Diazepam 2 MG 11/10/2019 12:00:00 AM EDT active Diazepam 2 MG eCW1 ([facility]) Diazepam 2 MG Oral Tablet Diazepam 2 MG 11/10/2019 12:00:00 AM EDT active Diazepam 2 MG eCW1 ([facility]) Diazepam 2 MG Oral Tablet Diazepam 2 MG 11/10/2019 12:00:00 AM EDT 1.0 {tablet_as_needed} active Diazepam 2 MG eCW1 ([facility]) Diazepam 2 MG Oral Tablet Diazepam 2 MG 11/10/2019 12:00:00 AM EDT active Diazepam 2 MG eCW1 ([facility]) Diazepam 2 MG Oral Tablet Diazepam 2 MG 11/10/2019 12:00:00 AM EDT active Diazepam 2 MG eCW1 ([facility]) Diazepam 2 MG Oral Tablet Diazepam 2 MG 11/10/2019 12:00:00 AM EDT active Diazepam 2 MG eCW1 ([facility]) Diazepam 2 MG Oral Tablet Diazepam 2 MG 11/10/2019 12:00:00 AM EDT active Diazepam 2 MG eCW1 ([facility]) Diazepam 2 MG Oral Tablet Diazepam 2 MG 11/10/2019 12:00:00 AM EDT active Diazepam 2 MG eCW1 ([facility]) Diazepam 2 MG Oral Tablet Diazepam 2 MG 11/10/2019 12:00:00 AM EDT active Diazepam 2 MG eCW1 ([facility]) Diazepam 2 MG Oral Tablet Diazepam 2 MG 11/10/2019 12:00:00 AM EDT active Diazepam 2 MG eCW1 ([facility]) Diazepam 2 MG Oral Tablet Diazepam 2 MG 11/10/2019 12:00:00 AM EDT 1.0 {tablet_as_needed} active Diazepam 2 MG eCW1 ([facility]) Diazepam 2 MG Oral Tablet Diazepam 2 MG 11/10/2019 12:00:00 AM EDT active Diazepam 2 MG eCW1 ([facility]) Diazepam 2 MG Oral Tablet Diazepam 2 MG 11/10/2019 12:00:00 AM EDT active Diazepam 2 MG eCW1 ([facility]) Diazepam 2 MG Oral Tablet Diazepam 2 MG 11/10/2019 12:00:00 AM EDT 1.0 {tablet_as_needed} active Diazepam 2 MG eCW1 ([facility]) Diazepam 2 MG Oral Tablet Diazepam 2 MG 11/10/2019 12:00:00 AM EDT 1.0 {tablet_as_needed} active Diazepam 2 MG eCW1 ([facility]) Diazepam 2 MG Oral Tablet Diazepam 2 MG 11/10/2019 12:00:00 AM EDT active Diazepam 2 MG eCW1 ([facility]) Diazepam 2 MG Oral Tablet Diazepam 2 MG 11/10/2019 12:00:00 AM EDT active Diazepam 2 MG eCW1 ([facility]) Diazepam 2 MG Oral Tablet Diazepam 2 MG 11/10/2019 12:00:00 AM EDT 1.0 {tablet_as_needed} active Diazepam 2 MG eCW1 ([facility]) Diazepam 2 MG Oral Tablet Diazepam 2 MG 11/10/2019 12:00:00 AM EDT active Diazepam 2 MG eCW1 ([facility]) Diazepam 2 MG Oral Tablet Diazepam 2 MG 11/10/2019 12:00:00 AM EDT 1.0 {tablet_as_needed} active Diazepam 2 MG eCW1 ([facility]) Diazepam 2 MG Oral Tablet Diazepam 2 MG 11/10/2019 12:00:00 AM EDT active Diazepam 2 MG eCW1 ([facility]) Diazepam 2 MG Oral Tablet Diazepam 2 MG 11/10/2019 12:00:00 AM EDT 1.0 {tablet_as_needed} active Diazepam 2 MG eCW1 ([facility]) Diazepam 2 MG Oral Tablet Diazepam 2 MG 11/10/2019 12:00:00 AM EDT 1.0 {tablet_as_needed} active Diazepam 2 MG eCW1 ([facility]) Diazepam 2 MG Oral Tablet Diazepam 2 MG 11/10/2019 12:00:00 AM EDT active Diazepam 2 MG eCW1 ([facility]) Diazepam 2 MG Oral Tablet Diazepam 2 MG 11/10/2019 12:00:00 AM EDT active Diazepam 2 MG eCW1 ([facility]) Diazepam 2 MG Oral Tablet Diazepam 2 MG 11/10/2019 12:00:00 AM EDT 1.0 {tablet_as_needed} active Diazepam 2 MG eCW1 ([facility]) Diazepam 2 MG Oral Tablet Diazepam 2 MG 11/10/2019 12:00:00 AM EDT active Diazepam 2 MG eCW1 ([facility]) Diazepam 2 MG Oral Tablet Diazepam 2 MG 11/10/2019 12:00:00 AM EDT 1.0 {tablet_as_needed} active Diazepam 2 MG eCW1 ([facility]) Diazepam 2 MG Oral Tablet Diazepam 2 MG 11/10/2019 12:00:00 AM EDT 1.0 {tablet_as_needed} active Diazepam 2 MG eCW1 ([facility]) Diazepam 2 MG Oral Tablet Diazepam 2 MG 11/10/2019 12:00:00 AM EDT 1.0 {tablet_as_needed} active Diazepam 2 MG eCW1 ([facility]) Diazepam 2 MG Oral Tablet Diazepam 2 MG 11/10/2019 12:00:00 AM EDT 1.0 {tablet_as_needed} active Diazepam 2 MG eCW1 ([facility]) Diazepam 2 MG Oral Tablet Diazepam 2 MG 11/10/2019 12:00:00 AM EDT active Diazepam 2 MG eCW1 ([facility]) Diazepam 2 MG Oral Tablet Diazepam 2 MG 11/10/2019 12:00:00 AM EDT active Diazepam 2 MG eCW1 ([facility]) Diazepam 2 MG Oral Tablet Diazepam 2 MG 11/10/2019 12:00:00 AM EDT active Diazepam 2 MG eCW1 ([facility]) Diazepam 2 MG Oral Tablet Diazepam 2 MG 11/10/2019 12:00:00 AM EDT active Diazepam 2 MG eCW1 ([facility]) Diazepam 2 MG Oral Tablet Diazepam 2 MG 11/10/2019 12:00:00 AM EDT active Diazepam 2 MG eCW1 ([facility]) Diazepam 2 MG Oral Tablet Diazepam 2 MG 11/10/2019 12:00:00 AM EDT 1.0 {tablet_as_needed} active Diazepam 2 MG eCW1 ([facility]) Diazepam 2 MG Oral Tablet Diazepam 2 MG 11/10/2019 12:00:00 AM EDT active Diazepam 2 MG eCW1 ([facility]) Diazepam 2 MG Oral Tablet Diazepam 2 MG 11/10/2019 12:00:00 AM EDT active Diazepam 2 MG eCW1 ([facility]) Diazepam 2 MG Oral Tablet Diazepam 2 MG 11/10/2019 12:00:00 AM EDT active Diazepam 2 MG eCW1 ([facility]) Diazepam 2 MG Oral Tablet Diazepam 2 MG 11/10/2019 12:00:00 AM EDT 1.0 {tablet_as_needed} active Diazepam 2 MG eCW1 ([facility]) Diazepam 2 MG Oral Tablet Diazepam 2 MG 11/10/2019 12:00:00 AM EDT active Diazepam 2 MG eCW1 ([facility]) Diazepam 2 MG Oral Tablet Diazepam 2 MG 11/10/2019 12:00:00 AM EDT active Diazepam 2 MG eCW1 ([facility]) Diazepam 2 MG Oral Tablet Diazepam 2 MG 11/10/2019 12:00:00 AM EDT 1.0 {tablet_as_needed} active Diazepam 2 MG eCW1 ([facility]) Diazepam 2 MG Oral Tablet Diazepam 2 MG 11/10/2019 12:00:00 AM EDT active Diazepam 2 MG eCW1 ([facility]) Diazepam 2 MG Oral Tablet Diazepam 2 MG 11/10/2019 12:00:00 AM EDT active Diazepam 2 MG eCW1 ([facility]) Diazepam 2 MG Oral Tablet Diazepam 2 MG 11/10/2019 12:00:00 AM EDT 1.0 {tablet_as_needed} active Diazepam 2 MG eCW1 ([facility]) Diazepam 2 MG Oral Tablet Diazepam 2 MG 11/10/2019 12:00:00 AM EDT active Diazepam 2 MG eCW1 ([facility]) Diazepam 2 MG Oral Tablet Diazepam 2 MG 11/10/2019 12:00:00 AM EDT active Diazepam 2 MG eCW1 ([facility]) Diazepam 2 MG Oral Tablet Diazepam 2 MG 11/10/2019 12:00:00 AM EDT active Diazepam 2 MG eCW1 ([facility]) Diazepam 2 MG Oral Tablet Diazepam 2 MG 11/10/2019 12:00:00 AM EDT active Diazepam 2 MG eCW1 ([facility]) Diazepam 2 MG Oral Tablet Diazepam 2 MG 11/10/2019 12:00:00 AM EDT 1.0 {tablet_as_needed} active Diazepam 2 MG eCW1 ([facility]) Diazepam 2 MG Oral Tablet Diazepam 2 MG 11/10/2019 12:00:00 AM EDT 1.0 {tablet_as_needed} active Diazepam 2 MG eCW1 ([facility]) Diazepam 2 MG Oral Tablet Diazepam 2 MG 11/10/2019 12:00:00 AM EDT active Diazepam 2 MG eCW1 ([facility]) Diazepam 2 MG Oral Tablet Diazepam 2 MG 11/10/2019 12:00:00 AM EDT active Diazepam 2 MG eCW1 ([facility]) Diazepam 2 MG Oral Tablet Diazepam 2 MG 11/10/2019 12:00:00 AM EDT active Diazepam 2 MG eCW1 ([facility]) Diazepam 2 MG Oral Tablet Diazepam 2 MG 11/10/2019 12:00:00 AM EDT active Diazepam 2 MG eCW1 ([facility]) Diazepam 2 MG Oral Tablet Diazepam 2 MG 11/10/2019 12:00:00 AM EDT active Diazepam 2 MG eCW1 ([facility]) Diazepam 2 MG Oral Tablet Diazepam 2 MG 11/10/2019 12:00:00 AM EDT active Diazepam 2 MG eCW1 ([facility]) Diazepam 2 MG Oral Tablet Diazepam 2 MG 11/10/2019 12:00:00 AM EDT 1.0 {tablet_as_needed} active Diazepam 2 MG eCW1 ([facility]) Diazepam 2 MG Oral Tablet Diazepam 2 MG 11/10/2019 12:00:00 AM EDT 1.0 {tablet_as_needed} active Diazepam 2 MG eCW1 ([facility]) Diazepam 2 MG Oral Tablet Diazepam 2 MG 11/10/2019 12:00:00 AM EDT active Diazepam 2 MG eCW1 ([facility]) Diazepam 2 MG Oral Tablet Diazepam 2 MG 11/10/2019 12:00:00 AM EDT active Diazepam 2 MG eCW1 ([facility]) Diazepam 2 MG Oral Tablet Diazepam 2 MG 11/10/2019 12:00:00 AM EDT active Diazepam 2 MG eCW1 ([facility]) Diazepam 2 MG Oral Tablet Diazepam 2 MG 11/10/2019 12:00:00 AM EDT 1.0 {tablet_as_needed} active Diazepam 2 MG eCW1 ([facility]) 15 mg 11/04/2019 12:00:00 AM EDT tablet extended release 90 TAKE ONE TABLET BY MOUTH EVERY 8 HOURS DIRECTED * MAXIMUM DAILY DOSE = 3 TAKE ONE TABLET BY MOUTH EVERY 8 HOURS DIRECTED * MAXIMUM DAILY DOSE = 3 SOLD: 11/04/2019 [facility] carvedilol 12.5 MG Oral Tablet CARVEDILOL 10/30/2019 12:00:00 AM EDT tablet 60 TAKE ONE TABLET BY MOUTH TWICE A DAY TAKE ONE TABLET BY MOUT H TWICE A DAY SOLD: 10/31/2019 [facility] carvedilol 12.5 MG Oral Tablet CARVEDILOL 10/30/2019 12:00:00 AM EDT tablet 60 TAKE ONE TABLET BY MOUTH TWICE A DAY TAKE ONE TABLET BY MOUT H TWICE A DAY SOLD: 11/27/2019 [facility] carvedilol 6.25 MG Oral Tablet CARVEDILOL 10/22/2019 12:00:00 AM EDT tablet 60 TAKE ONE TABLET BY MOUTH TWICE A DAY TAKE ONE TABLET BY MOUT H TWICE A DAY SOLD: 10/23/2019 [facility] 50 mg 10/21/2019 12:00:00 AM EDT tablet 90 TAKE ONE TABLET BY MOUTH EVERY DAY TAKE ONE TABLET BY MOUTH EVERY DAY SOLD: 10/21/2019 [facility] 30 mg 10/16/2019 12:00:00 AM EDT capsule,delayed release (DR/EC) 30 TAKE ONE CAPSULE BY MOUTH EVERY DAY TAKE ONE CAPSULE BY MOUTH EVERY DAY SOLD: 12/07/2019 [facility] 30 mg 10/16/2019 12:00:00 AM EDT capsule,delayed release (DR/EC) 30 TAKE ONE CAPSULE BY MOUTH EVERY DAY TAKE ONE CAPSULE BY MOUTH EVERY DAY SOLD: 10/16/2019 [facility] 30 mg 10/16/2019 12:00:00 AM EDT capsule,delayed release (DR/EC) 30 TAKE ONE CAPSULE BY MOUTH EVERY DAY TAKE ONE CAPSULE BY MOUTH EVERY DAY SOLD: 11/11/2019 [facility] 30 mg 10/16/2019 12:00:00 AM EDT capsule,delayed release (DR/EC) 30 TAKE ONE CAPSULE BY MOUTH EVERY DAY TAKE ONE CAPSULE BY MOUTH EVERY DAY SOLD: 12/24/2019 [facility] 2 mg 10/14/2019 12:00:00 AM EDT tablet 60 TAKE ONE TABLET BY MOUTH TWICE A DAY NEEDED MAXIMUM DAILY DOSE = 2 TABLETS TAKE ONE TABLET BY MOUTH TWICE A DAY NEEDED MAXIMUM DAILY DOSE = 2 TABLETS SOLD: 10/14/2019 [facility] 18 mcg 10/09/2019 12:00:00 AM EDT capsule, w/inhalation d evice 30 INHALE THE CONTENTS OF ONE CAPSULE VIA HANDIHALER BY MOUTH EVERY DAY INHALE THE CONTENTS OF ONE CAPSULE VIA HANDIHALER BY MOUTH EVERY DAY SOLD: 10/10/2019 [facility] 18 mcg 10/09/2019 12:00:00 AM EDT capsule, w/inhalation d evice 30 INHALE THE CONTENTS OF ONE CAPSULE VIA HANDIHALER BY MOUTH EVERY DAY INHALE THE CONTENTS OF ONE CAPSULE VIA HANDIHALER BY MOUTH EVERY DAY SOLD: 11/11/2019 [facility] 300 mg 10/03/2019 12:00:00 AM EDT capsule 270 TAKE ONE CAPSULE BY MOUTH THREE TIMES A DAY TAKE ONE CAPSULE BY MOUTH THREE TIMES A DAY SOLD: 10/03/2019 [facility] 15 mg 10/03/2019 12:00:00 AM EDT tablet extended release 90 TAKE ONE TABLET BY MOUTH EVERY 8 HOURS DIRECTED MAXIMUM DAILY DOSE = THREE TABLETS TAKE ONE TABLET BY MOUTH EVERY 8 HOURS DIRECTED MAXIMUM DAILY DOSE = THREE TABLETS SOLD: 10/03/2019 [facility] 300 mg 10/03/2019 12:00:00 AM EDT capsule 270 TAKE ONE CAPSULE BY MOUTH THREE TIMES A DAY TAKE ONE CAPSULE BY MOUTH THREE TIMES A DAY SOLD: 01/05/2020 [facility] 20 mg 10/01/2019 12:00:00 AM EDT tablet 60 TAKE ONE TABLET BY MOUTH TWICE A DAY TAKE ONE TABLET BY MOUTH TWICE A DAY SOLD: 10/01/2019 [facility] Primidone 250 MG Oral Tablet Primidone 09/22/2019 12:00:00 AM EDT active MEDENT ([facility], ) 250 mg 09/22/2019 12:00:00 AM EDT tablet 30 TAKE 1/2 TABLET BY MOUTH TWO TIMES A DAY TAKE 1/2 TABLET BY MOUTH TWO TIMES A DAY SOLD: 09/24/2019 [facility] 250 mg 09/22/2019 12:00:00 AM EDT tablet 30 TAKE 1/2 TABLET BY MOUTH TWO TIMES A DAY TAKE 1/2 TABLET BY MOUTH TWO TIMES A DAY SOLD: 10/24/2019 [facility] 10-325 mg 09/14/2019 12:00:00 AM EDT tablet 120 TAKE ONE TABLET BY MOUTH EVERY 6 HOURS NEEDED FOR PAIN MAXIMUM DAILY DOSE = 4 TAKE ONE TABLET BY MOUTH EVERY 6 HOURS NEEDED FOR PAIN MAXIMUM DAILY DOSE = 4 SOLD: 09/14/2019 [facility] 28 ACTUAT tiotropium 0.0025 MG/ACTUAT Me tered Dose Inhaler [Spiriva] Spiriva Respimat 2.5 MCG/ACT Spiriva Respimat 2.5 MCG/ACT 09/04/2019 12:00:00 AM EDT 2.0 {puffs} suspended Spiriva Respimat 2 .5 MCG/ACT eCW1 ([facility]) 28 ACTUAT tiotropium 0.0025 MG/ACTUAT Me tered Dose Inhaler [Spiriva] Spiriva Respimat 2.5 MCG/ACT Spiriva Respimat 2.5 MCG/ACT 09/04/2019 12:00:00 AM EDT 2.0 {puffs} suspended Spiriva Respimat 2 .5 MCG/ACT eCW1 ([facility]) 28 ACTUAT tiotropium 0.0025 MG/ACTUAT Me tered Dose Inhaler [Spiriva] Spiriva Respimat 2.5 MCG/ACT Spiriva Respimat 2.5 MCG/ACT 09/04/2019 12:00:00 AM EDT 2.0 {puffs} suspended Spiriva Respimat 2 .5 MCG/ACT eCW1 ([facility]) 28 ACTUAT tiotropium 0.0025 MG/ACTUAT Me tered Dose Inhaler [Spiriva] Spiriva Respimat 2.5 MCG/ACT Spiriva Respimat 2.5 MCG/ACT 09/04/2019 12:00:00 AM EDT 2.0 {puffs} active Spiriva Respimat 2.5 MCG/ACT eCW1 ([facility]) 28 ACTUAT tiotropium 0.0025 MG/ACTUAT Me tered Dose Inhaler [Spiriva] Spiriva Respimat 2.5 MCG/ACT Spiriva Respimat 2.5 MCG/ACT 09/04/2019 12:00:00 AM EDT 2.0 {puffs} suspended Spiriva Respimat 2 .5 MCG/ACT eCW1 ([facility]) 15 mg 09/04/2019 12:00:00 AM EDT tablet extended release 90 TAKE ONE TABLET BY MOUTH EVERY MORNING AND TWO TABLETS AT BEDTIME MAXIMUM DAILY DOSE = THREE TABLETS TAKE ONE TABLET BY MOUTH EVERY MORNING A ND TWO TABLETS AT BEDTIME MAXIMUM DAILY DOSE = THREE TABLETS SOLD: 09/04/2019 [facility] 28 ACTUAT tiotropium 0.0025 MG/ACTUAT Me tered Dose Inhaler [Spiriva] Spiriva Respimat 2.5 MCG/ACT Spiriva Respimat 2.5 MCG/ACT 09/04/2019 12:00:00 AM EDT 2.0 {puffs} active Spiriva Respimat 2.5 MCG/ACT eCW1 ([facility]) 28 ACTUAT tiotropium 0.0025 MG/ACTUAT Me tered Dose Inhaler [Spiriva] Spiriva Respimat 2.5 MCG/ACT Spiriva Respimat 2.5 MCG/ACT 09/04/2019 12:00:00 AM EDT 2.0 {puffs} suspended Spiriva Respimat 2 .5 MCG/ACT eCW1 ([facility]) 28 ACTUAT tiotropium 0.0025 MG/ACTUAT Me tered Dose Inhaler [Spiriva] Spiriva Respimat 2.5 MCG/ACT Spiriva Respimat 2.5 MCG/ACT 09/04/2019 12:00:00 AM EDT 2.0 {puffs} active Spiriva Respimat 2.5 MCG/ACT eCW1 ([facility]) 28 ACTUAT tiotropium 0.0025 MG/ACTUAT Me tered Dose Inhaler [Spiriva] Spiriva Respimat 2.5 MCG/ACT Spiriva Respimat 2.5 MCG/ACT 09/04/2019 12:00:00 AM EDT 2.0 {puffs} active Spiriva Respimat 2.5 MCG/ACT eCW1 ([facility]) 28 ACTUAT tiotropium 0.0025 MG/ACTUAT Me tered Dose Inhaler [Spiriva] Spiriva Respimat 2.5 MCG/ACT Spiriva Respimat 2.5 MCG/ACT 09/04/2019 12:00:00 AM EDT 2.0 {puffs} suspended Spiriva Respimat 2 .5 MCG/ACT eCW1 ([facility]) 28 ACTUAT tiotropium 0.0025 MG/ACTUAT Me tered Dose Inhaler [Spiriva] Spiriva Respimat 2.5 MCG/ACT Spiriva Respimat 2.5 MCG/ACT 09/04/2019 12:00:00 AM EDT 2.0 {puffs} active Spiriva Respimat 2.5 MCG/ACT eCW1 ([facility]) 28 ACTUAT tiotropium 0.0025 MG/ACTUAT Me tered Dose Inhaler [Spiriva] Spiriva Respimat 2.5 MCG/ACT Spiriva Respimat 2.5 MCG/ACT 09/04/2019 12:00:00 AM EDT 2.0 {puffs} suspended Spiriva Respimat 2 .5 MCG/ACT eCW1 ([facility]) 28 ACTUAT tiotropium 0.0025 MG/ACTUAT Me tered Dose Inhaler [Spiriva] Spiriva Respimat 2.5 MCG/ACT Spiriva Respimat 2.5 MCG/ACT 09/04/2019 12:00:00 AM EDT 2.0 {puffs} active Spiriva Respimat 2.5 MCG/ACT eCW1 ([facility]) 28 ACTUAT tiotropium 0.0025 MG/ACTUAT Me tered Dose Inhaler [Spiriva] Spiriva Respimat 2.5 MCG/ACT Spiriva Respimat 2.5 MCG/ACT 09/04/2019 12:00:00 AM EDT 2.0 {puffs} suspended Spiriva Respimat 2 .5 MCG/ACT eCW1 ([facility]) 28 ACTUAT tiotropium 0.0025 MG/ACTUAT Me tered Dose Inhaler [Spiriva] Spiriva Respimat 2.5 MCG/ACT Spiriva Respimat 2.5 MCG/ACT 09/04/2019 12:00:00 AM EDT 2.0 {puffs} active Spiriva Respimat 2.5 MCG/ACT eCW1 ([facility]) 28 ACTUAT tiotropium 0.0025 MG/ACTUAT Me tered Dose Inhaler [Spiriva] Spiriva Respimat 2.5 MCG/ACT Spiriva Respimat 2.5 MCG/ACT 09/04/2019 12:00:00 AM EDT 2.0 {puffs} active Spiriva Respimat 2.5 MCG/ACT eCW1 ([facility]) 28 ACTUAT tiotropium 0.0025 MG/ACTUAT Me tered Dose Inhaler [Spiriva] Spiriva Respimat 2.5 MCG/ACT Spiriva Respimat 2.5 MCG/ACT 09/04/2019 12:00:00 AM EDT 2.0 {puffs} active Spiriva Respimat 2.5 MCG/ACT eCW1 ([facility]) 28 ACTUAT tiotropium 0.0025 MG/ACTUAT Me tered Dose Inhaler [Spiriva] Spiriva Respimat 2.5 MCG/ACT Spiriva Respimat 2.5 MCG/ACT 09/04/2019 12:00:00 AM EDT 2.0 {puffs} active Spiriva Respimat 2.5 MCG/ACT eCW1 ([facility]) 28 ACTUAT tiotropium 0.0025 MG/ACTUAT Me tered Dose Inhaler [Spiriva] Spiriva Respimat 2.5 MCG/ACT Spiriva Respimat 2.5 MCG/ACT 09/04/2019 12:00:00 AM EDT 2.0 {puffs} suspended Spiriva Respimat 2 .5 MCG/ACT eCW1 ([facility]) 28 ACTUAT tiotropium 0.0025 MG/ACTUAT Me tered Dose Inhaler [Spiriva] Spiriva Respimat 2.5 MCG/ACT Spiriva Respimat 2.5 MCG/ACT 09/04/2019 12:00:00 AM EDT 2.0 {puffs} active Spiriva Respimat 2.5 MCG/ACT eCW1 ([facility]) 28 ACTUAT tiotropium 0.0025 MG/ACTUAT Me tered Dose Inhaler [Spiriva] Spiriva Respimat 2.5 MCG/ACT Spiriva Respimat 2.5 MCG/ACT 09/04/2019 12:00:00 AM EDT 2.0 {puffs} active Spiriva Respimat 2.5 MCG/ACT eCW1 ([facility]) 28 ACTUAT tiotropium 0.0025 MG/ACTUAT Me tered Dose Inhaler [Spiriva] Spiriva Respimat 2.5 MCG/ACT Spiriva Respimat 2.5 MCG/ACT 09/04/2019 12:00:00 AM EDT 2.0 {puffs} suspended Spiriva Respimat 2 .5 MCG/ACT eCW1 ([facility]) 28 ACTUAT tiotropium 0.0025 MG/ACTUAT Me tered Dose Inhaler [Spiriva] Spiriva Respimat 2.5 MCG/ACT Spiriva Respimat 2.5 MCG/ACT 09/04/2019 12:00:00 AM EDT 2.0 {puffs} active Spiriva Respimat 2.5 MCG/ACT eCW1 ([facility]) 28 ACTUAT tiotropium 0.0025 MG/ACTUAT Me tered Dose Inhaler [Spiriva] Spiriva Respimat 2.5 MCG/ACT Spiriva Respimat 2.5 MCG/ACT 09/04/2019 12:00:00 AM EDT 2.0 {puffs} active Spiriva Respimat 2.5 MCG/ACT eCW1 ([facility]) 28 ACTUAT tiotropium 0.0025 MG/ACTUAT Me tered Dose Inhaler [Spiriva] Spiriva Respimat 2.5 MCG/ACT Spiriva Respimat 2.5 MCG/ACT 09/04/2019 12:00:00 AM EDT 2.0 {puffs} active Spiriva Respimat 2.5 MCG/ACT eCW1 ([facility]) 28 ACTUAT tiotropium 0.0025 MG/ACTUAT Me tered Dose Inhaler [Spiriva] Spiriva Respimat 2.5 MCG/ACT Spiriva Respimat 2.5 MCG/ACT 09/04/2019 12:00:00 AM EDT 2.0 {puffs} suspended Spiriva Respimat 2 .5 MCG/ACT eCW1 ([facility]) 28 ACTUAT tiotropium 0.0025 MG/ACTUAT Me tered Dose Inhaler [Spiriva] Spiriva Respimat 2.5 MCG/ACT Spiriva Respimat 2.5 MCG/ACT 09/04/2019 12:00:00 AM EDT 2.0 {puffs} active Spiriva Respimat 2.5 MCG/ACT eCW1 ([facility]) 28 ACTUAT tiotropium 0.0025 MG/ACTUAT Me tered Dose Inhaler [Spiriva] Spiriva Respimat 2.5 MCG/ACT Spiriva Respimat 2.5 MCG/ACT 09/04/2019 12:00:00 AM EDT 2.0 {puffs} suspended Spiriva Respimat 2 .5 MCG/ACT eCW1 ([facility]) 28 ACTUAT tiotropium 0.0025 MG/ACTUAT Me tered Dose Inhaler [Spiriva] Spiriva Respimat 2.5 MCG/ACT Spiriva Respimat 2.5 MCG/ACT 09/04/2019 12:00:00 AM EDT 2.0 {puffs} active Spiriva Respimat 2.5 MCG/ACT eCW1 ([facility]) 28 ACTUAT tiotropium 0.0025 MG/ACTUAT Me tered Dose Inhaler [Spiriva] Spiriva Respimat 2.5 MCG/ACT Spiriva Respimat 2.5 MCG/ACT 09/04/2019 12:00:00 AM EDT 2.0 {puffs} suspended Spiriva Respimat 2 .5 MCG/ACT eCW1 ([facility]) 28 ACTUAT tiotropium 0.0025 MG/ACTUAT Me tered Dose Inhaler [Spiriva] Spiriva Respimat 2.5 MCG/ACT Spiriva Respimat 2.5 MCG/ACT 09/04/2019 12:00:00 AM EDT 2.0 {puffs} active Spiriva Respimat 2.5 MCG/ACT eCW1 ([facility]) 28 ACTUAT tiotropium 0.0025 MG/ACTUAT Me tered Dose Inhaler [Spiriva] Spiriva Respimat 2.5 MCG/ACT Spiriva Respimat 2.5 MCG/ACT 09/04/2019 12:00:00 AM EDT 2.0 {puffs} active Spiriva Respimat 2.5 MCG/ACT eCW1 ([facility]) 28 ACTUAT tiotropium 0.0025 MG/ACTUAT Me tered Dose Inhaler [Spiriva] Spiriva Respimat 2.5 MCG/ACT Spiriva Respimat 2.5 MCG/ACT 09/04/2019 12:00:00 AM EDT 2.0 {puffs} active Spiriva Respimat 2.5 MCG/ACT eCW1 ([facility]) 28 ACTUAT tiotropium 0.0025 MG/ACTUAT Me tered Dose Inhaler [Spiriva] Spiriva Respimat 2.5 MCG/ACT Spiriva Respimat 2.5 MCG/ACT 09/04/2019 12:00:00 AM EDT 2.0 {puffs} suspended Spiriva Respimat 2 .5 MCG/ACT eCW1 ([facility]) 28 ACTUAT tiotropium 0.0025 MG/ACTUAT Me tered Dose Inhaler [Spiriva] Spiriva Respimat 2.5 MCG/ACT Spiriva Respimat 2.5 MCG/ACT 09/04/2019 12:00:00 AM EDT 2.0 {puffs} active Spiriva Respimat 2.5 MCG/ACT eCW1 ([facility]) 28 ACTUAT tiotropium 0.0025 MG/ACTUAT Me tered Dose Inhaler [Spiriva] Spiriva Respimat 2.5 MCG/ACT Spiriva Respimat 2.5 MCG/ACT 09/04/2019 12:00:00 AM EDT 2.0 {puffs} suspended Spiriva Respimat 2 .5 MCG/ACT eCW1 ([facility]) 28 ACTUAT tiotropium 0.0025 MG/ACTUAT Me tered Dose Inhaler [Spiriva] Spiriva Respimat 2.5 MCG/ACT Spiriva Respimat 2.5 MCG/ACT 09/04/2019 12:00:00 AM EDT 2.0 {puffs} suspended Spiriva Respimat 2 .5 MCG/ACT eCW1 ([facility]) 28 ACTUAT tiotropium 0.0025 MG/ACTUAT Me tered Dose Inhaler [Spiriva] Spiriva Respimat 2.5 MCG/ACT Spiriva Respimat 2.5 MCG/ACT 09/04/2019 12:00:00 AM EDT 2.0 {puffs} suspended Spiriva Respimat 2 .5 MCG/ACT eCW1 ([facility]) 28 ACTUAT tiotropium 0.0025 MG/ACTUAT Me tered Dose Inhaler [Spiriva] Spiriva Respimat 2.5 MCG/ACT Spiriva Respimat 2.5 MCG/ACT 09/04/2019 12:00:00 AM EDT 2.0 {puffs} active Spiriva Respimat 2.5 MCG/ACT eCW1 ([facility]) 28 ACTUAT tiotropium 0.0025 MG/ACTUAT Me tered Dose Inhaler [Spiriva] Spiriva Respimat 2.5 MCG/ACT Spiriva Respimat 2.5 MCG/ACT 09/04/2019 12:00:00 AM EDT 2.0 {puffs} active Spiriva Respimat 2.5 MCG/ACT eCW1 ([facility]) 28 ACTUAT tiotropium 0.0025 MG/ACTUAT Me tered Dose Inhaler [Spiriva] Spiriva Respimat 2.5 MCG/ACT Spiriva Respimat 2.5 MCG/ACT 09/04/2019 12:00:00 AM EDT 2.0 {puffs} active Spiriva Respimat 2.5 MCG/ACT eCW1 ([facility]) 28 ACTUAT tiotropium 0.0025 MG/ACTUAT Me tered Dose Inhaler [Spiriva] Spiriva Respimat 2.5 MCG/ACT Spiriva Respimat 2.5 MCG/ACT 09/04/2019 12:00:00 AM EDT 2.0 {puffs} active Spiriva Respimat 2.5 MCG/ACT eCW1 ([facility]) 28 ACTUAT tiotropium 0.0025 MG/ACTUAT Me tered Dose Inhaler [Spiriva] Spiriva Respimat 2.5 MCG/ACT Spiriva Respimat 2.5 MCG/ACT 09/04/2019 12:00:00 AM EDT 2.0 {puffs} active Spiriva Respimat 2.5 MCG/ACT eCW1 ([facility]) 28 ACTUAT tiotropium 0.0025 MG/ACTUAT Me tered Dose Inhaler [Spiriva] Spiriva Respimat 2.5 MCG/ACT Spiriva Respimat 2.5 MCG/ACT 09/04/2019 12:00:00 AM EDT 2.0 {puffs} suspended Spiriva Respimat 2 .5 MCG/ACT eCW1 ([facility]) 28 ACTUAT tiotropium 0.0025 MG/ACTUAT Me tered Dose Inhaler [Spiriva] Spiriva Respimat 2.5 MCG/ACT Spiriva Respimat 2.5 MCG/ACT 09/04/2019 12:00:00 AM EDT 2.0 {puffs} active Spiriva Respimat 2.5 MCG/ACT eCW1 ([facility]) 28 ACTUAT tiotropium 0.0025 MG/ACTUAT Me tered Dose Inhaler [Spiriva] Spiriva Respimat 2.5 MCG/ACT Spiriva Respimat 2.5 MCG/ACT 09/04/2019 12:00:00 AM EDT 2.0 {puffs} active Spiriva Respimat 2.5 MCG/ACT eCW1 ([facility]) 28 ACTUAT tiotropium 0.0025 MG/ACTUAT Me tered Dose Inhaler [Spiriva] Spiriva Respimat 2.5 MCG/ACT Spiriva Respimat 2.5 MCG/ACT 09/04/2019 12:00:00 AM EDT 2.0 {puffs} active Spiriva Respimat 2.5 MCG/ACT eCW1 ([facility]) 28 ACTUAT tiotropium 0.0025 MG/ACTUAT Me tered Dose Inhaler [Spiriva] Spiriva Respimat 2.5 MCG/ACT Spiriva Respimat 2.5 MCG/ACT 09/04/2019 12:00:00 AM EDT 2.0 {puffs} suspended Spiriva Respimat 2 .5 MCG/ACT eCW1 ([facility]) 28 ACTUAT tiotropium 0.0025 MG/ACTUAT Me tered Dose Inhaler [Spiriva] Spiriva Respimat 2.5 MCG/ACT Spiriva Respimat 2.5 MCG/ACT 09/04/2019 12:00:00 AM EDT 2.0 {puffs} suspended Spiriva Respimat 2 .5 MCG/ACT eCW1 ([facility]) 28 ACTUAT tiotropium 0.0025 MG/ACTUAT Me tered Dose Inhaler [Spiriva] Spiriva Respimat 2.5 MCG/ACT Spiriva Respimat 2.5 MCG/ACT 09/04/2019 12:00:00 AM EDT 2.0 {puffs} active Spiriva Respimat 2.5 MCG/ACT eCW1 ([facility]) 28 ACTUAT tiotropium 0.0025 MG/ACTUAT Me tered Dose Inhaler [Spiriva] Spiriva Respimat 2.5 MCG/ACT Spiriva Respimat 2.5 MCG/ACT 09/04/2019 12:00:00 AM EDT 2.0 {puffs} active Spiriva Respimat 2.5 MCG/ACT eCW1 ([facility]) 28 ACTUAT tiotropium 0.0025 MG/ACTUAT Me tered Dose Inhaler [Spiriva] Spiriva Respimat 2.5 MCG/ACT Spiriva Respimat 2.5 MCG/ACT 09/04/2019 12:00:00 AM EDT 2.0 {puffs} suspended Spiriva Respimat 2 .5 MCG/ACT eCW1 ([facility]) 28 ACTUAT tiotropium 0.0025 MG/ACTUAT Me tered Dose Inhaler [Spiriva] Spiriva Respimat 2.5 MCG/ACT Spiriva Respimat 2.5 MCG/ACT 09/04/2019 12:00:00 AM EDT 2.0 {puffs} active Spiriva Respimat 2.5 MCG/ACT eCW1 ([facility]) 28 ACTUAT tiotropium 0.0025 MG/ACTUAT Me tered Dose Inhaler [Spiriva] Spiriva Respimat 2.5 MCG/ACT Spiriva Respimat 2.5 MCG/ACT 09/04/2019 12:00:00 AM EDT 2.0 {puffs} active Spiriva Respimat 2.5 MCG/ACT eCW1 ([facility]) 28 ACTUAT tiotropium 0.0025 MG/ACTUAT Me tered Dose Inhaler [Spiriva] Spiriva Respimat 2.5 MCG/ACT Spiriva Respimat 2.5 MCG/ACT 09/04/2019 12:00:00 AM EDT 2.0 {puffs} suspended Spiriva Respimat 2 .5 MCG/ACT eCW1 ([facility]) Morphine Sulfate 15 MG Extended Release Oral Tablet Mo rphine Sulfate ER 15 MG Morphine Sulfate ER 15 MG 09/03/2019 12:00:00 AM EDT active Morphine Sulfate ER 15 MG eCW1 ([facility]) Morphine Sulfate 15 MG Extended Release Oral Tablet Mo rphine Sulfate ER 15 MG Morphine Sulfate ER 15 MG 09/03/2019 12:00:00 AM EDT active Morphine Sulfate ER 15 MG eCW1 ([facility]) Morphine Sulfate 15 MG Extended Release Oral Tablet Mo rphine Sulfate ER 15 MG Morphine Sulfate ER 15 MG 09/03/2019 12:00:00 AM EDT active Morphine Sulfate ER 15 MG eCW1 ([facility]) Morphine Sulfate 15 MG Extended Release Oral Tablet Mo rphine Sulfate ER 15 MG Morphine Sulfate ER 15 MG 09/03/2019 12:00:00 AM EDT active Morphine Sulfate ER 15 MG eCW1 ([facility]) Morphine Sulfate 15 MG Extended Release Oral Tablet Mo rphine Sulfate ER 15 MG Morphine Sulfate ER 15 MG 09/03/2019 12:00:00 AM EDT active Morphine Sulfate ER 15 MG eCW1 ([facility]) Morphine Sulfate 15 MG Extended Release Oral Tablet Mo rphine Sulfate ER 15 MG Morphine Sulfate ER 15 MG 09/03/2019 12:00:00 AM EDT active Morphine Sulfate ER 15 MG eCW1 ([facility]) Morphine Sulfate 15 MG Extended Release Oral Tablet Mo rphine Sulfate ER 15 MG Morphine Sulfate ER 15 MG 09/03/2019 12:00:00 AM EDT active Morphine Sulfate ER 15 MG eCW1 ([facility]) Morphine Sulfate 15 MG Extended Release Oral Tablet Mo rphine Sulfate ER 15 MG Morphine Sulfate ER 15 MG 09/03/2019 12:00:00 AM EDT active Morphine Sulfate ER 15 MG eCW1 ([facility]) Morphine Sulfate 15 MG Extended Release Oral Tablet Mo rphine Sulfate ER 15 MG Morphine Sulfate ER 15 MG 09/03/2019 12:00:00 AM EDT active Morphine Sulfate ER 15 MG eCW1 ([facility]) Morphine Sulfate 15 MG Extended Release Oral Tablet Mo rphine Sulfate ER 15 MG Morphine Sulfate ER 15 MG 09/03/2019 12:00:00 AM EDT active Morphine Sulfate ER 15 MG eCW1 ([facility]) 50 mg 08/27/2019 12:00:00 AM EDT tablet 43 TAKE ONE-HALF TABLET BY MOUTH AT BEDTIME FOR 1 WEEK, THEN TAKE ONE-HALF TABLET TWICE A DAY FOR 1 WEEK, THEN TAKE ONE TABLET TWICE A DAY TAKE ONE-HALF TABLET BY MOUTH AT BEDTIME FOR 1 WEEK, THEN TAKE ONE-HALF TABLET TWICE A DAY FOR 1 WEEK, THEN TAKE ONE TABLET TWICE A DAY SOLD: 08/27/2019 [facility] Primidone 50 MG Oral Tablet Primidone 08/26/2019 12:00:00 AM EDT completed MEDENT ([facility], ) 200 ACTUAT Albuterol 0.09 MG/ACTUAT Mete red Dose Inhaler [Ventolin] Ventolin HFA 108 (90 Base) MCG/ACT Ventolin HFA 108 (90 Base) MCG/ACT 08/25/2019 12:00:00 AM EDT 1.0 {puff_as_needed} suspended Ventolin HFA 108 (90 Base) MCG/ACT eCW1 ([facility]) 200 ACTUAT Albuterol 0.09 MG/ACTUAT Mete red Dose Inhaler [Ventolin] Ventolin HFA 108 (90 Base) MCG/ACT Ventolin HFA 108 (90 Base) MCG/ACT 08/25/2019 12:00:00 AM EDT 1.0 {puff_as_needed} suspended Ventolin HFA 108 (90 Base) MCG/ACT eCW1 ([facility]) 200 ACTUAT Albuterol 0.09 MG/ACTUAT Mete red Dose Inhaler [Ventolin] Ventolin HFA 108 (90 Base) MCG/ACT Ventolin HFA 108 (90 Base) MCG/ACT 08/25/2019 12:00:00 AM EDT 1.0 {puff_as_needed} suspended Ventolin HFA 108 (90 Base) MCG/ACT eCW1 ([facility]) 200 ACTUAT Albuterol 0.09 MG/ACTUAT Mete red Dose Inhaler [Ventolin] Ventolin HFA 108 (90 Base) MCG/ACT Ventolin HFA 108 (90 Base) MCG/ACT 08/25/2019 12:00:00 AM EDT 1.0 {puff_as_needed} suspended Ventolin HFA 108 (90 Base) MCG/ACT eCW1 ([facility]) 200 ACTUAT Albuterol 0.09 MG/ACTUAT Mete red Dose Inhaler [Ventolin] Ventolin HFA 108 (90 Base) MCG/ACT Ventolin HFA 108 (90 Base) MCG/ACT 08/25/2019 12:00:00 AM EDT 1.0 {puff_as_needed} suspended Ventolin HFA 108 (90 Base) MCG/ACT eCW1 ([facility]) 200 ACTUAT Albuterol 0.09 MG/ACTUAT Mete red Dose Inhaler [Ventolin] Ventolin HFA 108 (90 Base) MCG/ACT Ventolin HFA 108 (90 Base) MCG/ACT 08/25/2019 12:00:00 AM EDT 1.0 {puff_as_needed} active Jovani tolin HFA 108 (90 Base) MCG/ACT eCW1 ([facility]) 200 ACTUAT Albuterol 0.09 MG/ACTUAT Mete red Dose Inhaler [Ventolin] Ventolin HFA 108 (90 Base) MCG/ACT Ventolin HFA 108 (90 Base) MCG/ACT 08/25/2019 12:00:00 AM EDT 1.0 {puff_as_needed} suspended Ventolin HFA 108 (90 Base) MCG/ACT eCW1 ([facility]) tiotropium 0.018 MG/ACTUAT Inhalant Powder [Spiriva] S piriva HandiHaler 18 MCG Spiriva HandiHaler 18 MCG 08/25/2019 12:00:00 AM EDT active Spiriva HandiHaler 18 MCG eCW1 ([facility]) 200 ACTUAT Albuterol 0.09 MG/ACTUAT Mete red Dose Inhaler [Ventolin] Ventolin HFA 108 (90 Base) MCG/ACT Ventolin HFA 108 (90 Base) MCG/ACT 08/25/2019 12:00:00 AM EDT 1.0 {puff_as_needed} suspended Ventolin HFA 108 (90 Base) MCG/ACT eCW1 ([facility]) tiotropium 0.018 MG/ACTUAT Inhalant Powder [Spiriva] S piriva HandiHaler 18 MCG Spiriva HandiHaler 18 MCG 08/25/2019 12:00:00 AM EDT active Spiriva HandiHaler 18 MCG eCW1 ([facility]) 200 ACTUAT Albuterol 0.09 MG/ACTUAT Mete red Dose Inhaler [Ventolin] Ventolin HFA 108 (90 Base) MCG/ACT Ventolin HFA 108 (90 Base) MCG/ACT 08/25/2019 12:00:00 AM EDT 1.0 {puff_as_needed} suspended Ventolin HFA 108 (90 Base) MCG/ACT eCW1 ([facility]) 200 ACTUAT Albuterol 0.09 MG/ACTUAT Mete red Dose Inhaler [Ventolin] Ventolin HFA 108 (90 Base) MCG/ACT Ventolin HFA 108 (90 Base) MCG/ACT 08/25/2019 12:00:00 AM EDT 1.0 {puff_as_needed} active Jovani tolin HFA 108 (90 Base) MCG/ACT eCW1 ([facility]) 200 ACTUAT Albuterol 0.09 MG/ACTUAT Mete red Dose Inhaler [Ventolin] Ventolin HFA 108 (90 Base) MCG/ACT Ventolin HFA 108 (90 Base) MCG/ACT 08/25/2019 12:00:00 AM EDT 1.0 {puff_as_needed} suspended Ventolin HFA 108 (90 Base) MCG/ACT eCW1 ([facility]) 200 ACTUAT Albuterol 0.09 MG/ACTUAT Mete red Dose Inhaler [Ventolin] Ventolin HFA 108 (90 Base) MCG/ACT Ventolin HFA 108 (90 Base) MCG/ACT 08/25/2019 12:00:00 AM EDT 1.0 {puff_as_needed} suspended Ventolin HFA 108 (90 Base) MCG/ACT eCW1 ([facility]) 200 ACTUAT Albuterol 0.09 MG/ACTUAT Mete red Dose Inhaler [Ventolin] Ventolin HFA 108 (90 Base) MCG/ACT Ventolin HFA 108 (90 Base) MCG/ACT 08/25/2019 12:00:00 AM EDT 1.0 {puff_as_needed} active Jovani tolin HFA 108 (90 Base) MCG/ACT eCW1 ([facility]) tiotropium 0.018 MG/ACTUAT Inhalant Powder [Spiriva] S piriva HandiHaler 18 MCG Spiriva HandiHaler 18 MCG 08/25/2019 12:00:00 AM EDT active Spiriva HandiHaler 18 MCG eCW1 ([facility]) 200 ACTUAT Albuterol 0.09 MG/ACTUAT Mete red Dose Inhaler [Ventolin] Ventolin HFA 108 (90 Base) MCG/ACT Ventolin HFA 108 (90 Base) MCG/ACT 08/25/2019 12:00:00 AM EDT 1.0 {puff_as_needed} suspended Ventolin HFA 108 (90 Base) MCG/ACT eCW1 ([facility]) 200 ACTUAT Albuterol 0.09 MG/ACTUAT Mete red Dose Inhaler [Ventolin] Ventolin HFA 108 (90 Base) MCG/ACT Ventolin HFA 108 (90 Base) MCG/ACT 08/25/2019 12:00:00 AM EDT 1.0 {puff_as_needed} suspended Ventolin HFA 108 (90 Base) MCG/ACT eCW1 ([facility]) 200 ACTUAT Albuterol 0.09 MG/ACTUAT Mete red Dose Inhaler [Ventolin] Ventolin HFA 108 (90 Base) MCG/ACT Ventolin HFA 108 (90 Base) MCG/ACT 08/25/2019 12:00:00 AM EDT 1.0 {puff_as_needed} suspended Ventolin HFA 108 (90 Base) MCG/ACT eCW1 ([facility]) 200 ACTUAT Albuterol 0.09 MG/ACTUAT Mete red Dose Inhaler [Ventolin] Ventolin HFA 108 (90 Base) MCG/ACT Ventolin HFA 108 (90 Base) MCG/ACT 08/25/2019 12:00:00 AM EDT 1.0 {puff_as_needed} active Jovani tolin HFA 108 (90 Base) MCG/ACT eCW1 ([facility]) 200 ACTUAT Albuterol 0.09 MG/ACTUAT Mete red Dose Inhaler [Ventolin] Ventolin HFA 108 (90 Base) MCG/ACT Ventolin HFA 108 (90 Base) MCG/ACT 08/25/2019 12:00:00 AM EDT 1.0 {puff_as_needed} suspended Ventolin HFA 108 (90 Base) MCG/ACT eCW1 ([facility]) tiotropium 0.018 MG/ACTUAT Inhalant Powder [Spiriva] S piriva HandiHaler 18 MCG Spiriva HandiHaler 18 MCG 08/25/2019 12:00:00 AM EDT active Spiriva HandiHaler 18 MCG eCW1 ([facility]) 200 ACTUAT Albuterol 0.09 MG/ACTUAT Mete red Dose Inhaler [Ventolin] Ventolin HFA 108 (90 Base) MCG/ACT Ventolin HFA 108 (90 Base) MCG/ACT 08/25/2019 12:00:00 AM EDT 1.0 {puff_as_needed} suspended Ventolin HFA 108 (90 Base) MCG/ACT eCW1 ([facility]) 200 ACTUAT Albuterol 0.09 MG/ACTUAT Mete red Dose Inhaler [Ventolin] Ventolin HFA 108 (90 Base) MCG/ACT Ventolin HFA 108 (90 Base) MCG/ACT 08/25/2019 12:00:00 AM EDT 1.0 {puff_as_needed} suspended Ventolin HFA 108 (90 Base) MCG/ACT eCW1 ([facility]) 200 ACTUAT Albuterol 0.09 MG/ACTUAT Mete red Dose Inhaler [Ventolin] Ventolin HFA 108 (90 Base) MCG/ACT Ventolin HFA 108 (90 Base) MCG/ACT 08/25/2019 12:00:00 AM EDT 1.0 {puff_as_needed} suspended Ventolin HFA 108 (90 Base) MCG/ACT eCW1 ([facility]) tiotropium 0.018 MG/ACTUAT Inhalant Powder [Spiriva] S piriva HandiHaler 18 MCG Spiriva HandiHaler 18 MCG 08/25/2019 12:00:00 AM EDT active Spiriva HandiHaler 18 MCG eCW1 ([facility]) 200 ACTUAT Albuterol 0.09 MG/ACTUAT Mete red Dose Inhaler [Ventolin] Ventolin HFA 108 (90 Base) MCG/ACT Ventolin HFA 108 (90 Base) MCG/ACT 08/25/2019 12:00:00 AM EDT 1.0 {puff_as_needed} suspended Ventolin HFA 108 (90 Base) MCG/ACT eCW1 ([facility]) 200 ACTUAT Albuterol 0.09 MG/ACTUAT Mete red Dose Inhaler [Ventolin] Ventolin HFA 108 (90 Base) MCG/ACT Ventolin HFA 108 (90 Base) MCG/ACT 08/25/2019 12:00:00 AM EDT 1.0 {puff_as_needed} active Jovani tolin HFA 108 (90 Base) MCG/ACT eCW1 ([facility]) 200 ACTUAT Albuterol 0.09 MG/ACTUAT Mete red Dose Inhaler [Ventolin] Ventolin HFA 108 (90 Base) MCG/ACT Ventolin HFA 108 (90 Base) MCG/ACT 08/25/2019 12:00:00 AM EDT 1.0 {puff_as_needed} suspended Ventolin HFA 108 (90 Base) MCG/ACT eCW1 ([facility]) tiotropium 0.018 MG/ACTUAT Inhalant Powder [Spiriva] S piriva HandiHaler 18 MCG Spiriva HandiHaler 18 MCG 08/25/2019 12:00:00 AM EDT active Spiriva HandiHaler 18 MCG eCW1 ([facility]) tiotropium 0.018 MG/ACTUAT Inhalant Powder [Spiriva] S piriva HandiHaler 18 MCG Spiriva HandiHaler 18 MCG 08/25/2019 12:00:00 AM EDT active Spiriva HandiHaler 18 MCG eCW1 ([facility]) 200 ACTUAT Albuterol 0.09 MG/ACTUAT Mete red Dose Inhaler [Ventolin] Ventolin HFA 108 (90 Base) MCG/ACT Ventolin HFA 108 (90 Base) MCG/ACT 08/25/2019 12:00:00 AM EDT 1.0 {puff_as_needed} active Jovani tolin HFA 108 (90 Base) MCG/ACT eCW1 ([facility]) tiotropium 0.018 MG/ACTUAT Inhalant Powder [Spiriva] S piriva HandiHaler 18 MCG Spiriva HandiHaler 18 MCG 08/25/2019 12:00:00 AM EDT active Spiriva HandiHaler 18 MCG eCW1 ([facility]) 200 ACTUAT Albuterol 0.09 MG/ACTUAT Mete red Dose Inhaler [Ventolin] Ventolin HFA 108 (90 Base) MCG/ACT Ventolin HFA 108 (90 Base) MCG/ACT 08/25/2019 12:00:00 AM EDT 1.0 {puff_as_needed} active Jovani tolin HFA 108 (90 Base) MCG/ACT eCW1 ([facility]) 200 ACTUAT Albuterol 0.09 MG/ACTUAT Mete red Dose Inhaler [Ventolin] Ventolin HFA 108 (90 Base) MCG/ACT Ventolin HFA 108 (90 Base) MCG/ACT 08/25/2019 12:00:00 AM EDT 1.0 {puff_as_needed} suspended Ventolin HFA 108 (90 Base) MCG/ACT eCW1 ([facility]) 200 ACTUAT Albuterol 0.09 MG/ACTUAT Mete red Dose Inhaler [Ventolin] Ventolin HFA 108 (90 Base) MCG/ACT Ventolin HFA 108 (90 Base) MCG/ACT 08/25/2019 12:00:00 AM EDT 1.0 {puff_as_needed} suspended Ventolin HFA 108 (90 Base) MCG/ACT eCW1 ([facility]) 200 ACTUAT Albuterol 0.09 MG/ACTUAT Mete red Dose Inhaler [Ventolin] Ventolin HFA 108 (90 Base) MCG/ACT Ventolin HFA 108 (90 Base) MCG/ACT 08/25/2019 12:00:00 AM EDT 1.0 {puff_as_needed} active Jovani tolin HFA 108 (90 Base) MCG/ACT eCW1 ([facility]) 10-325 mg 08/15/2019 12:00:00 AM EDT tablet 120 TAKE ONE TABLET BY MOUTH EVERY 6 HOURS NEEDED MAXIMUM DAILY DOSE = 4 TABLETS TAKE ONE TABLET BY MOUTH EVERY 6 HOURS NEEDED MAXIMUM DAILY DOSE = 4 TABLETS SOLD: 08/15/2019 [facility] Acetaminophen 325 MG / Oxycodone Hydroch loride 10 MG Oral Tablet [Percocet] Percocet 10-325 MG Percocet 10-325 MG 08/07/2019 12:00:00 AM EDT 1.0 {tablet_as_needed} suspended Percocet 10 -325 MG eCW1 ([facility]) Acetaminophen 325 MG / Oxycodone Hydroch loride 10 MG Oral Tablet [Percocet] Percocet 10-325 MG Percocet 10-325 MG 08/07/2019 12:00:00 AM EDT 1.0 {tablet_as_needed} active Percocet 10-3 25 MG eCW1 ([facility]) Acetaminophen 325 MG / Oxycodone Hydroch loride 10 MG Oral Tablet [Percocet] Percocet 10-325 MG Percocet 10-325 MG 08/07/2019 12:00:00 AM EDT 1.0 {tablet_as_needed} suspended Percocet 10 -325 MG eCW1 ([facility]) Acetaminophen 325 MG / Oxycodone Hydroch loride 10 MG Oral Tablet [Percocet] Percocet 10-325 MG Percocet 10-325 MG 08/07/2019 12:00:00 AM EDT 1.0 {tablet_as_needed} suspended Percocet 10 -325 MG eCW1 ([facility]) Acetaminophen 325 MG / Oxycodone Hydroch loride 10 MG Oral Tablet [Percocet] Percocet 10-325 MG Percocet 10-325 MG 08/07/2019 12:00:00 AM EDT 1.0 {tablet_as_needed} active Percocet 10-3 25 MG eCW1 ([facility]) Acetaminophen 325 MG / Oxycodone Hydroch loride 10 MG Oral Tablet [Percocet] Percocet 10-325 MG Percocet 10-325 MG 08/07/2019 12:00:00 AM EDT 1.0 {tablet_as_needed} active Percocet 10-3 25 MG eCW1 ([facility]) Acetaminophen 325 MG / Oxycodone Hydroch loride 10 MG Oral Tablet [Percocet] Percocet 10-325 MG Percocet 10-325 MG 08/07/2019 12:00:00 AM EDT 1.0 {tablet_as_needed} active Percocet 10-3 25 MG eCW1 ([facility]) Acetaminophen 325 MG / Oxycodone Hydroch loride 10 MG Oral Tablet [Percocet] Percocet 10-325 MG Percocet 10-325 MG 08/07/2019 12:00:00 AM EDT 1.0 {tablet_as_needed} suspended Percocet 10 -325 MG eCW1 ([facility]) Acetaminophen 325 MG / Oxycodone Hydroch loride 10 MG Oral Tablet [Percocet] Percocet 10-325 MG Percocet 10-325 MG 08/07/2019 12:00:00 AM EDT 1.0 {tablet_as_needed} active Percocet 10-3 25 MG eCW1 ([facility]) Acetaminophen 325 MG / Oxycodone Hydroch loride 10 MG Oral Tablet [Percocet] Percocet 10-325 MG Percocet 10-325 MG 08/07/2019 12:00:00 AM EDT 1.0 {tablet_as_needed} suspended Percocet 10 -325 MG eCW1 ([facility]) Acetaminophen 325 MG / Oxycodone Hydroch loride 10 MG Oral Tablet [Percocet] Percocet 10-325 MG Percocet 10-325 MG 08/07/2019 12:00:00 AM EDT 1.0 {tablet_as_needed} suspended Percocet 10 -325 MG eCW1 ([facility]) Acetaminophen 325 MG / Oxycodone Hydroch loride 10 MG Oral Tablet [Percocet] Percocet 10-325 MG Percocet 10-325 MG 08/07/2019 12:00:00 AM EDT 1.0 {tablet_as_needed} active Percocet 10-3 25 MG eCW1 ([facility]) Acetaminophen 325 MG / Oxycodone Hydroch loride 10 MG Oral Tablet [Percocet] Percocet 10-325 MG Percocet 10-325 MG 08/07/2019 12:00:00 AM EDT 1.0 {tablet_as_needed} active Percocet 10-3 25 MG eCW1 ([facility]) Acetaminophen 325 MG / Oxycodone Hydroch loride 10 MG Oral Tablet [Percocet] Percocet 10-325 MG Percocet 10-325 MG 08/07/2019 12:00:00 AM EDT 1.0 {tablet_as_needed} suspended Percocet 10 -325 MG eCW1 ([facility]) Acetaminophen 325 MG / Oxycodone Hydroch loride 10 MG Oral Tablet [Percocet] Percocet 10-325 MG Percocet 10-325 MG 08/07/2019 12:00:00 AM EDT 1.0 {tablet_as_needed} active Percocet 10-3 25 MG eCW1 ([facility]) Acetaminophen 325 MG / Oxycodone Hydroch loride 10 MG Oral Tablet [Percocet] Percocet 10-325 MG Percocet 10-325 MG 08/07/2019 12:00:00 AM EDT 1.0 {tablet_as_needed} suspended Percocet 10 -325 MG eCW1 ([facility]) Acetaminophen 325 MG / Oxycodone Hydroch loride 10 MG Oral Tablet [Percocet] Percocet 10-325 MG Percocet 10-325 MG 08/07/2019 12:00:00 AM EDT 1.0 {tablet_as_needed} active Percocet 10-3 25 MG eCW1 ([facility]) Acetaminophen 325 MG / Oxycodone Hydroch loride 10 MG Oral Tablet [Percocet] Percocet 10-325 MG Percocet 10-325 MG 08/07/2019 12:00:00 AM EDT 1.0 {tablet_as_needed} suspended Percocet 10 -325 MG eCW1 ([facility]) Acetaminophen 325 MG / Oxycodone Hydroch loride 10 MG Oral Tablet [Percocet] Percocet 10-325 MG Percocet 10-325 MG 08/07/2019 12:00:00 AM EDT 1.0 {tablet_as_needed} suspended Percocet 10 -325 MG eCW1 ([facility]) Acetaminophen 325 MG / Oxycodone Hydroch loride 10 MG Oral Tablet [Percocet] Percocet 10-325 MG Percocet 10-325 MG 08/07/2019 12:00:00 AM EDT 1.0 {tablet_as_needed} active Percocet 10-3 25 MG eCW1 ([facility]) Acetaminophen 325 MG / Oxycodone Hydroch loride 10 MG Oral Tablet [Percocet] Percocet 10-325 MG Percocet 10-325 MG 08/07/2019 12:00:00 AM EDT 1.0 {tablet_as_needed} suspended Percocet 10 -325 MG eCW1 ([facility]) Acetaminophen 325 MG / Oxycodone Hydroch loride 10 MG Oral Tablet [Percocet] Percocet 10-325 MG Percocet 10-325 MG 08/07/2019 12:00:00 AM EDT 1.0 {tablet_as_needed} suspended Percocet 10 -325 MG eCW1 ([facility]) Acetaminophen 325 MG / Oxycodone Hydroch loride 10 MG Oral Tablet [Percocet] Percocet 10-325 MG Percocet 10-325 MG 08/07/2019 12:00:00 AM EDT 1.0 {tablet_as_needed} active Percocet 10-3 25 MG eCW1 ([facility]) Acetaminophen 325 MG / Oxycodone Hydroch loride 10 MG Oral Tablet [Percocet] Percocet 10-325 MG Percocet 10-325 MG 08/07/2019 12:00:00 AM EDT 1.0 {tablet_as_needed} active Percocet 10-3 25 MG eCW1 ([facility]) Acetaminophen 325 MG / Oxycodone Hydroch loride 10 MG Oral Tablet [Percocet] Percocet 10-325 MG Percocet 10-325 MG 08/07/2019 12:00:00 AM EDT 1.0 {tablet_as_needed} active Percocet 10-3 25 MG eCW1 ([facility]) Acetaminophen 325 MG / Oxycodone Hydroch loride 10 MG Oral Tablet [Percocet] Percocet 10-325 MG Percocet 10-325 MG 08/07/2019 12:00:00 AM EDT 1.0 {tablet_as_needed} active Percocet 10-3 25 MG eCW1 ([facility]) Acetaminophen 325 MG / Oxycodone Hydroch loride 10 MG Oral Tablet [Percocet] Percocet 10-325 MG Percocet 10-325 MG 08/07/2019 12:00:00 AM EDT 1.0 {tablet_as_needed} active Percocet 10-3 25 MG eCW1 ([facility]) Acetaminophen 325 MG / Oxycodone Hydroch loride 10 MG Oral Tablet [Percocet] Percocet 10-325 MG Percocet 10-325 MG 08/07/2019 12:00:00 AM EDT 1.0 {tablet_as_needed} active Percocet 10-3 25 MG eCW1 ([facility]) Acetaminophen 325 MG / Oxycodone Hydroch loride 10 MG Oral Tablet [Percocet] Percocet 10-325 MG Percocet 10-325 MG 08/07/2019 12:00:00 AM EDT 1.0 {tablet_as_needed} active Percocet 10-3 25 MG eCW1 ([facility]) 15 mg 08/06/2019 12:00:00 AM EDT tablet extended release 90 TAKE ONE TABLET BY MOUTH IN THE MORNING AND TWO TABLETS AT AT BEDTIME DIRECTED. MAXIMUM DAILY DOSE = 3 TABLETS TAKE ONE TABLET BY MOUTH IN THE MORNING AND TWO TABLETS AT AT BEDTIME DIRECTED. MAXIMUM DAILY DOSE = 3 TABLETS SOLD: 08/06/2019 [facility] 25 mg 08/04/2019 12:00:00 AM EDT tablet 30 TAKE ONE TABLET BY MOUTH EVERY MORNING WITH FOOD TAKE ONE TABLET BY MOUTH EVERY MORNING WITH FOOD SOLD: 08/05/2019 [facility] Propranolol Hydrochloride 10 MG Oral Tablet Propranolo l HCl 10 MG Propranolol HCl 10 MG 08/04/2019 12:00:00 AM EDT 1.0 {tablet} ac tive Propranolol HCl 10 MG eCW1 ([facility]) Chlorthalidone 25 MG Oral Tablet Chlorthalidone 25 MG 2019 12:00:00 AM EDT 1.0 {tablet_in_the_morning_with_food} active Chlorthalidone 25 MG eCW1 ([facility]) 10 mg 08/04/2019 12:00:00 AM EDT tablet 60 TAKE ONE TABLET BY MOUTH TWICE A DAY TAKE ONE TABLET BY MOUTH TWICE A DAY SOLD: 08/05/2019 [facility] Morphine Sulfate 15 MG Extended Release Oral Tablet Mo rphine Sulfate ER 15 MG Morphine Sulfate ER 15 MG 07/28/2019 12:00:00 AM EDT active Morphine Sulfate ER 15 MG eCW1 ([facility]) Morphine Sulfate 15 MG Extended Release Oral Tablet Mo rphine Sulfate ER 15 MG Morphine Sulfate ER 15 MG 07/28/2019 12:00:00 AM EDT active Morphine Sulfate ER 15 MG eCW1 ([facility]) Morphine Sulfate 15 MG Extended Release Oral Tablet Mo rphine Sulfate ER 15 MG Morphine Sulfate ER 15 MG 07/28/2019 12:00:00 AM EDT active Morphine Sulfate ER 15 MG eCW1 ([facility]) Morphine Sulfate 15 MG Extended Release Oral Tablet Mo rphine Sulfate ER 15 MG Morphine Sulfate ER 15 MG 07/28/2019 12:00:00 AM EDT active Morphine Sulfate ER 15 MG eCW1 ([facility]) Morphine Sulfate 15 MG Extended Release Oral Tablet Mo rphine Sulfate ER 15 MG Morphine Sulfate ER 15 MG 07/28/2019 12:00:00 AM EDT active Morphine Sulfate ER 15 MG eCW1 ([facility]) 300 mg 07/28/2019 12:00:00 AM EDT capsule 60 TAKE ONE CAPSULE BY MOUTH TWICE A DAY, MAXIMUM DAILY DOSE = 2 CAPSULES TAKE ONE CAPSULE BY MOUTH TWICE A DAY, MAXIMUM DAILY DOSE = 2 CAPSULES SOLD: 07/28/2019 [facility] Morphine Sulfate 15 MG Extended Release Oral Tablet Mo rphine Sulfate ER 15 MG Morphine Sulfate ER 15 MG 07/28/2019 12:00:00 AM EDT active Morphine Sulfate ER 15 MG eCW1 ([facility]) Morphine Sulfate 15 MG Extended Release Oral Tablet Mo rphine Sulfate ER 15 MG Morphine Sulfate ER 15 MG 07/28/2019 12:00:00 AM EDT active Morphine Sulfate ER 15 MG eCW1 ([facility]) 300 mg 07/28/2019 12:00:00 AM EDT capsule 60 TAKE ONE CAPSULE BY MOUTH TWICE A DAY, MAXIMUM DAILY DOSE = 2 CAPSULES TAKE ONE CAPSULE BY MOUTH TWICE A DAY, MAXIMUM DAILY DOSE = 2 CAPSULES SOLD: 08/26/2019 [facility] 300 mg 07/28/2019 12:00:00 AM EDT capsule 60 TAKE ONE CAPSULE BY MOUTH TWICE A DAY, MAXIMUM DAILY DOSE = 2 CAPSULES TAKE ONE CAPSULE BY MOUTH TWICE A DAY, MAXIMUM DAILY DOSE = 2 CAPSULES SOLD: 09/24/2019 [facility] Morphine Sulfate 15 MG Extended Release Oral Tablet Mo rphine Sulfate ER 15 MG Morphine Sulfate ER 15 MG 07/28/2019 12:00:00 AM EDT active Morphine Sulfate ER 15 MG eCW1 ([facility]) Morphine Sulfate 15 MG Extended Release Oral Tablet Mo rphine Sulfate ER 15 MG Morphine Sulfate ER 15 MG 07/28/2019 12:00:00 AM EDT active Morphine Sulfate ER 15 MG eCW1 ([facility]) Morphine Sulfate 15 MG Extended Release Oral Tablet Mo rphine Sulfate ER 15 MG Morphine Sulfate ER 15 MG 07/28/2019 12:00:00 AM EDT active Morphine Sulfate ER 15 MG eCW1 ([facility]) 10-325 mg 07/17/2019 12:00:00 AM EDT tablet 120 TAKE ONE TABLET BY MOUTH EVERY 6 HOURS NEEDED MAXIMUM DAILY DOSE = 4 TAKE ONE TABLET BY MOUTH EVERY 6 HOURS NEEDED MAXIMUM DAILY DOSE = 4 SOLD: 07/17/2019 [facility] Amitriptyline Hydrochloride 25 MG Oral Tablet AMITRIPTYLINE HCL 07/13/2019 12:00:00 AM EDT tablet 90 TAKE THREE TABLETS BY ADENIKE TH EVERY DAY TAKE THREE TABLETS BY MOUTH EVERY DAY SOLD: 10/16/2019 [facility] Amitriptyline Hydrochloride 25 MG Oral Tablet AMITRIPTYLINE HCL 07/13/2019 12:00:00 AM EDT tablet 90 TAKE THREE TABLETS BY ADENIKE TH EVERY DAY TAKE THREE TABLETS BY MOUTH EVERY DAY SOLD: 09/16/2019 [facility] Acetaminophen 325 MG / Oxycodone Hydroch loride 10 MG Oral Tablet [Percocet] Percocet 10-325 MG Percocet 10-325 MG 07/13/2019 12:00:00 AM EDT active 1 tablet as needed [facility] ([facility]) Amitriptyline Hydrochloride 25 MG Oral Tablet AMITRIPTYLINE HCL 07/13/2019 12:00:00 AM EDT tablet 90 TAKE THREE TABLETS BY ADENIKE TH EVERY DAY TAKE THREE TABLETS BY MOUTH EVERY DAY SOLD: 07/16/2019 [facility] Amitriptyline Hydrochloride 25 MG Oral Tablet AMITRIPTYLINE HCL 07/13/2019 12:00:00 AM EDT tablet 90 TAKE THREE TABLETS BY ADENIKE TH EVERY DAY TAKE THREE TABLETS BY MOUTH EVERY DAY SOLD: 12/09/2019 [facility] Amitriptyline Hydrochloride 25 MG Oral Tablet AMITRIPTYLINE HCL 07/13/2019 12:00:00 AM EDT tablet 90 TAKE THREE TABLETS BY ADENIKE TH EVERY DAY TAKE THREE TABLETS BY MOUTH EVERY DAY SOLD: 11/12/2019 [facility] Amitriptyline Hydrochloride 25 MG Oral Tablet AMITRIPTYLINE HCL 07/13/2019 12:00:00 AM EDT tablet 90 TAKE THREE TABLETS BY ADENIKE TH EVERY DAY TAKE THREE TABLETS BY MOUTH EVERY DAY SOLD: 08/18/2019 [facility] Morphine Sulfate 15 MG Extended Release Oral Tablet Mo rphine Sulfate ER 15 MG Morphine Sulfate ER 15 MG 07/07/2019 12:00:00 AM EDT active Morphine Sulfate ER 15 MG eCW1 ([facility]) Morphine Sulfate 15 MG Extended Release Oral Tablet Mo rphine Sulfate ER 15 MG Morphine Sulfate ER 15 MG 07/07/2019 12:00:00 AM EDT active Morphine Sulfate ER 15 MG eCW1 ([facility]) Morphine Sulfate 15 MG Extended Release Oral Tablet Mo rphine Sulfate ER 15 MG Morphine Sulfate ER 15 MG 07/07/2019 12:00:00 AM EDT active Morphine Sulfate ER 15 MG eCW1 ([facility]) Morphine Sulfate 15 MG Extended Release Oral Tablet Mo rphine Sulfate ER 15 MG Morphine Sulfate ER 15 MG 07/07/2019 12:00:00 AM EDT active 1 to 2 as directed eCW1 ([facility]) 15 mg 07/07/2019 12:00:00 AM EDT tablet extended release 90 TAKE 1 TABLET BY MOUTH EVERY MORNING AND 2 TABLETS AT BEDTIME, MAXIMUM DAILY DOSE = 3 TABLETS TAKE 1 TABLET BY MOUTH EVERY MORNING AND 2 TABLETS AT BEDTIME, MAXIMUM DAILY DOSE = 3 TABLETS SOLD: 07/08/2019 [facility] 100,000 unit/gram 06/25/2019 12:00:00 AM EDT cream 30 APPLY TOPICALLY 2 GRAMS TO RASH ON GROIN TWICE DAILY APPLY TOPICALLY 2 GRAMS TO RASH ON GROIN TWICE DAILY SOLD: 06/26/2019 [facility] 100,000 unit/gram 06/25/2019 12:00:00 AM EDT cream 30 APPLY TOPICALLY 2 GRAMS TO RASH ON GROIN TWICE DAILY APPLY TOPICALLY 2 GRAMS TO RASH ON GROIN TWICE DAILY SOLD: 07/09/2019 [facility] 100,000 unit/gram 06/25/2019 12:00:00 AM EDT cream 30 APPLY TOPICALLY 2 GRAMS TO RASH ON GROIN TWICE DAILY APPLY TOPICALLY 2 GRAMS TO RASH ON GROIN TWICE DAILY SOLD: 09/27/2019 [facility] 10-325 mg 06/18/2019 12:00:00 AM EDT tablet 120 TAKE ONE TABLET BY MOUTH EVERY 6 HOURS NEEDED MAXIMUM DAILY DOSE =4 TAKE ONE TABLET BY MOUTH EVERY 6 HOURS NEEDED MAXIMUM DAILY DOSE =4 SOLD: 06/18/2019 [facility] Acetaminophen 325 MG / Oxycodone Hydroch loride 10 MG Oral Tablet [Percocet] Percocet 10-325 MG Percocet 10-325 MG 06/17/2019 12:00:00 AM EDT 1.0 {tablet_as_needed} active Percocet 10-3 25 MG eCW1 ([facility]) Acetaminophen 325 MG / Oxycodone Hydroch loride 10 MG Oral Tablet [Percocet] Percocet 10-325 MG Percocet 10-325 MG 06/17/2019 12:00:00 AM EDT 1.0 {tablet_as_needed} active Percocet 10-3 25 MG eCW1 ([facility]) Acetaminophen 325 MG / Oxycodone Hydroch loride 10 MG Oral Tablet [Percocet] Percocet 10-325 MG Percocet 10-325 MG 06/17/2019 12:00:00 AM EDT 1.0 {tablet_as_needed} active Percocet 10-3 25 MG eCW1 ([facility]) Acetaminophen 325 MG / Oxycodone Hydroch loride 10 MG Oral Tablet [Percocet] Percocet 10-325 MG Percocet 10-325 MG 06/17/2019 12:00:00 AM EDT 1.0 {tablet_as_needed} active Percocet 10-3 25 MG eCW1 ([facility]) Acetaminophen 325 MG / Oxycodone Hydroch loride 10 MG Oral Tablet [Percocet] Percocet 10-325 MG Percocet 10-325 MG 06/17/2019 12:00:00 AM EDT active 1 tablet as needed eCW1 ([facility]) Acetaminophen 325 MG / Oxycodone Hydroch loride 10 MG Oral Tablet [Percocet] Percocet 10-325 MG Percocet 10-325 MG 06/17/2019 12:00:00 AM EDT 1.0 {tablet_as_needed} active Percocet 10-3 25 MG eCW1 ([facility]) Acetaminophen 325 MG / Oxycodone Hydroch loride 10 MG Oral Tablet [Percocet] Percocet 10-325 MG Percocet 10-325 MG 06/17/2019 12:00:00 AM EDT 1.0 {tablet_as_needed} active Percocet 10-3 25 MG eCW1 ([facility]) Acetaminophen 325 MG / Oxycodone Hydroch loride 10 MG Oral Tablet [Percocet] Percocet 10-325 MG Percocet 10-325 MG 06/17/2019 12:00:00 AM EDT active 1 tablet as needed eCW1 ([facility]) 5 mg 06/11/2019 12:00:00 AM EDT tablet 30 TAKE ONE TABLET BY MOUTH EVERY 6 HOURS NEEDED FOR ANXIETY MAXIMUM DAILY DOSE = 4 TAKE ONE TABLET BY MOUTH EVERY 6 HOURS NEEDED FOR ANXIETY MAXIMUM DAILY DOSE = 4 SOLD: 06/11/2019 [facility] 15 mg 06/05/2019 12:00:00 AM EDT tablet extended release 90 TAKE ONE TABLET BY MOUTH EVERY MORNING AND 2 TABLETS AT BEDTIME, MAXIMUM DAILY DOSE = 3 TABLETS TAKE ONE TABLET BY MOUTH EVERY MORNING AND 2 TABLETS AT BEDTIME, MAXIMUM DAILY DOSE = 3 TABLETS SOLD: 06/05/2019 [facility] 50 mg 06/03/2019 12:00:00 AM EDT tablet 90 TAKE ONE TABLET BY MOUTH EVERY DAY TAKE ONE TABLET BY MOUTH EVERY DAY SOLD: 06/05/2019 [facility] Morphine Sulfate 15 MG Extended Release Oral Tablet Mo rphine Sulfate ER 15 MG Morphine Sulfate ER 15 MG 06/03/2019 12:00:00 AM EDT active 1 to 2 as directed eCW1 ([facility]) Morphine Sulfate 15 MG Extended Release Oral Tablet Mo rphine Sulfate ER 15 MG Morphine Sulfate ER 15 MG 06/03/2019 12:00:00 AM EDT active 1 to 2 as directed eCW1 ([facility]) Morphine Sulfate 15 MG Extended Release Oral Tablet Mo rphine Sulfate ER 15 MG Morphine Sulfate ER 15 MG 06/03/2019 12:00:00 AM EDT active 1 to 2 as directed eCW1 ([facility]) 40 mg 06/03/2019 12:00:00 AM EDT tablet 90 TAKE ONE TABLET BY MOUTH EVERY DAY TAKE ONE TABLET BY MOUTH EVERY DAY SOLD: 08/13/2019 [facility] 40 mg 06/03/2019 12:00:00 AM EDT tablet 90 TAKE ONE TABLET BY MOUTH EVERY DAY TAKE ONE TABLET BY MOUTH EVERY DAY SOLD: 06/05/2019 [facility] 50 mg 06/03/2019 12:00:00 AM EDT tablet 90 TAKE ONE TABLET BY MOUTH EVERY DAY TAKE ONE TABLET BY MOUTH EVERY DAY SOLD: 08/13/2019 [facility] 350 mg 05/31/2019 12:00:00 AM EDT tablet 90 TAKE ONE TABLET BY MOUTH EVERY 8 HOURS MAXIMUM DAILY DOSE = 3 TAKE ONE TABLET BY MOUTH EVERY 8 HOURS M AXIMUM DAILY DOSE = 3 SOLD: 05/31/2019 [facility] 350 mg 05/31/2019 12:00:00 AM EDT tablet 90 TAKE ONE TABLET BY MOUTH EVERY 8 HOURS MAXIMUM DAILY DOSE = 3 TAKE ONE TABLET BY MOUTH EVERY 8 HOURS M AXIMUM DAILY DOSE = 3 SOLD: 07/29/2019 [facility] 350 mg 05/31/2019 12:00:00 AM EDT tablet 90 TAKE ONE TABLET BY MOUTH EVERY 8 HOURS MAXIMUM DAILY DOSE = 3 TAKE ONE TABLET BY MOUTH EVERY 8 HOURS M AXIMUM DAILY DOSE = 3 SOLD: 06/30/2019 [facility] 350 mg 05/31/2019 12:00:00 AM EDT tablet 90 TAKE ONE TABLET BY MOUTH EVERY 8 HOURS MAXIMUM DAILY DOSE = 3 TAKE ONE TABLET BY MOUTH EVERY 8 HOURS M AXIMUM DAILY DOSE = 3 SOLD: 08/27/2019 [facility] 350 mg 05/31/2019 12:00:00 AM EDT tablet 90 TAKE ONE TABLET BY MOUTH EVERY 8 HOURS MAXIMUM DAILY DOSE = 3 TAKE ONE TABLET BY MOUTH EVERY 8 HOURS M AXIMUM DAILY DOSE = 3 SOLD: 09/27/2019 [facility] 100,000 unit/gram 05/21/2019 12:00:00 AM EDT cream 30 APPLY TO RASH ON GROIN TWO TIMES A DAY APPLY TO RASH ON GROIN TWO TIMES A DAY SOLD: 06/13/2019 [facility] 100,000 unit/gram 05/21/2019 12:00:00 AM EDT cream 30 APPLY TO RASH ON GROIN TWO TIMES A DAY APPLY TO RASH ON GROIN TWO TIMES A DAY SOLD: 06/03/2019 [facility] 10-325 mg 05/20/2019 12:00:00 AM EDT tablet 120 TAKE 1 TABLET BY MOUTH EVERY 6 HOURS NEEDED MAXIMUM DAILY DOSE = 4 TABLETS TAKE 1 TABLET BY MOUTH EVERY 6 HOURS NEEDED MAXIMUM DAILY DOSE = 4 TABLETS SOLD: 05/20/2019 [facility] Acetaminophen 325 MG / Oxycodone Hydroch loride 10 MG Oral Tablet [Percocet] Percocet 10-325 MG Percocet 10-325 MG 05/18/2019 12:00:00 AM EDT active 1 tablet as needed eCW1 ([facility]) Acetaminophen 325 MG / Oxycodone Hydroch loride 10 MG Oral Tablet [Percocet] Percocet 10-325 MG Percocet 10-325 MG 05/18/2019 12:00:00 AM EDT active 1 tablet as needed eCW1 ([facility]) Acetaminophen 325 MG / Oxycodone Hydroch loride 10 MG Oral Tablet [Percocet] Percocet 10-325 MG Percocet 10-325 MG 05/18/2019 12:00:00 AM EDT active 1 tablet as needed eCW1 ([facility]) 800 mg 05/16/2019 12:00:00 AM EDT tablet 270 TAKE ONE TABLET BY MOUTH THREE TIMES A DAY NEEDED TAKE ONE TABLET BY MOUTH THREE TIMES A DAY NEEDED S OLD: 08/07/2019 [facility] 800 mg 05/16/2019 12:00:00 AM EDT tablet 270 TAKE ONE TABLET BY MOUTH THREE TIMES A DAY NEEDED TAKE ONE TABLET BY MOUTH THREE TIMES A DAY NEEDED S OLD: 05/16/2019 [facility] 5 mg 05/13/2019 12:00:00 AM EDT tablet 60 TAKE ONE TABLET BY MOUTH EVERY 12 HOURS NEEDED FOR ANXIETY MAXIMUM DAILY DOSE = 2 TABLETS TAKE ONE TABLET BY MOUTH EVERY 12 HOURS NEEDED FOR ANXIETY MAXIMUM DAILY DOSE = 2 TABLETS SOLD: 05/13/2019 [facility] 15 mg 05/07/2019 12:00:00 AM EDT tablet extended release 90 TAKE 1 TABLET BY MOUTH EVERY MORNING AND 2 TABLETS AT BEDTIME, MAXIMUM DAILY DOSE = 3 TABLETS TAKE 1 TABLET BY MOUTH EVERY MORNING AND 2 TABLETS AT BEDTIME, MAXIMUM DAILY DOSE = 3 TABLETS SOLD: 05/07/2019 [facility] Morphine Sulfate 15 MG Extended Release Oral Tablet Mo rphine Sulfate ER 15 MG Morphine Sulfate ER 15 MG 05/04/2019 12:00:00 AM EDT active 1 to 2 as directed eCW1 ([facility]) Morphine Sulfate 15 MG Extended Release Oral Tablet Mo rphine Sulfate ER 15 MG Morphine Sulfate ER 15 MG 05/04/2019 12:00:00 AM EDT active 1 to 2 as directed eCW1 ([facility]) Morphine Sulfate 15 MG Extended Release Oral Tablet Mo rphine Sulfate ER 15 MG Morphine Sulfate ER 15 MG 05/04/2019 12:00:00 AM EDT active 1 to 2 as directed eCW1 ([facility]) 100,000 unit/gram 04/30/2019 12:00:00 AM EDT cream 30 APPLY TO RASH ON GROIN TWO TIMES A DAY APPLY TO RASH ON GROIN TWO TIMES A DAY SOLD: 05/13/2019 [facility] 100,000 unit/gram 04/30/2019 12:00:00 AM EDT cream 30 APPLY TO RASH ON GROIN TWO TIMES A DAY APPLY TO RASH ON GROIN TWO TIMES A DAY SOLD: 05/12/2019 [facility] 10-325 mg 04/21/2019 12:00:00 AM EDT tablet 120 TAKE ONE TABLET BY MOUTH EVERY 6 HOURS NEEDED MAXIMUM DAILY DOSE = 4 TABLETS TAKE ONE TABLET BY MOUTH EVERY 6 HOURS NEEDED MAXIMUM DAILY DOSE = 4 TABLETS SOLD: 04/21/2019 [facility] Acetaminophen 325 MG / Oxycodone Hydroch loride 10 MG Oral Tablet [Percocet] Percocet 10-325 MG Percocet 10-325 MG 04/21/2019 12:00:00 AM EDT active 1 tablet as needed eCW1 ([facility]) 100,000 unit/gram 04/15/2019 12:00:00 AM EST cream 30 APPLY TO RASH ON GROIN TWO TIMES A DAY APPLY TO RASH ON GROIN TWO TIMES A DAY SOLD: 04/26/2019 [facility] 100,000 unit/gram 04/15/2019 12:00:00 AM EST cream 30 APPLY TO RASH ON GROIN TWO TIMES A DAY APPLY TO RASH ON GROIN TWO TIMES A DAY SOLD: 04/16/2019 [facility] 5 mg 04/14/2019 12:00:00 AM EST tablet 60 TAKE ONE TABLET BY MOUTH EVERY 12 HOURS NEEDED FOR ANXIETY. MAXIMUM DAILY DOSE = 2 TABLETS TAKE ONE TABLET BY MOUTH EVERY 12 HOURS NEEDED FOR ANXIETY. MAXIMUM DAILY DOSE = 2 TABLETS SOLD: 04/14/2019 [facility] 15 mg 04/08/2019 12:00:00 AM EST tablet extended release 90 TAKE 1 TABLET BY MOUTH IN THE MORNING AND 2 AT BEDTIME DIRECTED MAXIMUM DAILY DOSE = 3 TABLETS TAKE 1 TABLET BY MOUTH IN THE MORNING AN D 2 AT BEDTIME DIRECTED MAXIMUM DAILY DOSE = 3 TABLETS SOLD: 04/08/2019 [facility] Morphine Sulfate 15 MG Extended Release Oral Tablet Mo rphine Sulfate ER 15 MG Morphine Sulfate ER 15 MG 04/08/2019 12:00:00 AM EST active 1 to 2 as directed eCW1 ([facility]) Morphine Sulfate 15 MG Extended Release Oral Tablet Mo rphine Sulfate ER 15 MG Morphine Sulfate ER 15 MG 04/08/2019 12:00:00 AM EST active 1 to 2 as directed eCW1 ([facility]) Amitriptyline Hydrochloride 25 MG Oral Tablet AMITRIPTYLINE HCL 04/06/2019 12:00:00 AM EST tablet 270 TAKE THREE TABLETS BY ADENIKE TH EVERY DAY TAKE THREE TABLETS BY MOUTH EVERY DAY SOLD: 04/08/2019 [facility] 100,000 unit/gram 04/03/2019 12:00:00 AM EST cream 30 APPLY 2 GRAMS TOPICALLY TO RASH ON GROIN TWO TIMES A DAY APPLY 2 GRAMS TOPICALLY TO RASH ON GROIN TWO TIMES A DAY SOLD: 04/04/2019 [facility] 5 mg 04/01/2019 12:00:00 AM EST tablet 30 TAKE ONE TABLET BY MOUTH EVERY 6 HOURS NEEDED FOR ANXIETY FOR UP TO 10 DAYS MAXIMUM DAILY DOSE = 4 TABLETS TAKE ONE TABLET BY MOUTH EVERY 6 HOURS NEEDED FOR ANXIETY FOR UP TO 10 DAYS MAXIMUM DAILY DOSE = 4 TABLETS SOLD: 04/02/2019 [facility] Diazepam 5 MG Oral Tablet diazePAM 5 MG Oral Tablet (V ALIUM) diazePAM 5 MG Oral Tablet (VALIUM) 04/01/2019 12:00:00 AM EST 5 mg Oral ac tive Take 1 tablet by mouth every 6 (six) hours as needed for Anxiety for up to 10 days, Max Daily Dose: 20 mg [facility] 300 mg 03/27/2019 12:00:00 AM EST capsule 270 TAKE ONE CAPSULE BY MOUTH THREE TIMES A DAY TAKE ONE CAPSULE BY MOUTH THREE TIMES A DAY SOLD: 03/28/2019 [facility] 20 mg 03/27/2019 12:00:00 AM EST tablet 360 TAKE ONE TABLET BY MOUTH EVERY 6 HOURS WITH FOOD OR MILK TAKE ONE TABLET BY MOUTH EVERY 6 HOURS W ITH FOOD OR MILK SOLD: 03/28/2019 [facility] 100,000 unit/gram 03/27/2019 12:00:00 AM EST cream 30 APPLY TO RASH ON GROIN TWICE A DAY APPLY TO RASH ON GROIN TWICE A DAY SOLD: 03/27/2019 [facility] 20 mg 03/27/2019 12:00:00 AM EST tablet 360 TAKE ONE TABLET BY MOUTH EVERY 6 HOURS WITH FOOD OR MILK TAKE ONE TABLET BY MOUTH EVERY 6 HOURS W ITH FOOD OR MILK SOLD: 07/28/2019 [facility] 300 mg 03/27/2019 12:00:00 AM EST capsule 270 TAKE ONE CAPSULE BY MOUTH THREE TIMES A DAY TAKE ONE CAPSULE BY MOUTH THREE TIMES A DAY SOLD: 06/30/2019 [facility] atorvastatin 40 MG Oral Tablet Atorvastatin Calcium 40 MG Atorvastatin Calcium 40 MG 03/26/2019 12:00:00 AM EST active 1 tablet eCW1 ([facility]) atorvastatin 40 MG Oral Tablet Atorvastatin Calcium 40 MG Atorvastatin Calcium 40 MG 03/26/2019 12:00:00 AM EST 1.0 {tablet} activ e Atorvastatin Calcium 40 MG eCW1 ([facility]) atorvastatin 40 MG Oral Tablet Atorvastatin Calcium 40 MG Atorvastatin Calcium 40 MG 03/26/2019 12:00:00 AM EST 1.0 {tablet} activ e Atorvastatin Calcium 40 MG eCW1 ([facility]) atorvastatin 40 MG Oral Tablet Atorvastatin Calcium 40 MG Atorvastatin Calcium 40 MG 03/26/2019 12:00:00 AM EST 1.0 {tablet} activ e Atorvastatin Calcium 40 MG eCW1 ([facility]) atorvastatin 40 MG Oral Tablet Atorvastatin Calcium 40 MG Atorvastatin Calcium 40 MG 03/26/2019 12:00:00 AM EST active 1 tablet eCW1 ([facility]) atorvastatin 40 MG Oral Tablet Atorvastatin Calcium 40 MG Atorvastatin Calcium 40 MG 03/26/2019 12:00:00 AM EST 1.0 {tablet} activ e Atorvastatin Calcium 40 MG eCW1 ([facility]) atorvastatin 40 MG Oral Tablet Atorvastatin Calcium 40 MG Atorvastatin Calcium 40 MG 03/26/2019 12:00:00 AM EST active 1 tablet eCW1 ([facility]) atorvastatin 40 MG Oral Tablet Atorvastatin Calcium 40 MG Atorvastatin Calcium 40 MG 03/26/2019 12:00:00 AM EST 1.0 {tablet} activ e Atorvastatin Calcium 40 MG eCW1 ([facility]) atorvastatin 40 MG Oral Tablet Atorvastatin Calcium 40 MG Atorvastatin Calcium 40 MG 03/26/2019 12:00:00 AM EST 1.0 {tablet} activ e Atorvastatin Calcium 40 MG eCW1 ([facility]) atorvastatin 40 MG Oral Tablet Atorvastatin Calcium 40 MG Atorvastatin Calcium 40 MG 03/26/2019 12:00:00 AM EST 1.0 {tablet} activ e Atorvastatin Calcium 40 MG eCW1 ([facility]) atorvastatin 40 MG Oral Tablet Atorvastatin Calcium 40 MG Atorvastatin Calcium 40 MG 03/26/2019 12:00:00 AM EST 1.0 {tablet} activ e Atorvastatin Calcium 40 MG eCW1 ([facility]) atorvastatin 40 MG Oral Tablet Atorvastatin Calcium 40 MG Atorvastatin Calcium 40 MG 03/26/2019 12:00:00 AM EST 1.0 {tablet} activ e Atorvastatin Calcium 40 MG eCW1 ([facility]) atorvastatin 40 MG Oral Tablet Atorvastatin Calcium 40 MG Atorvastatin Calcium 40 MG 03/26/2019 12:00:00 AM EST 1.0 {tablet} activ e Atorvastatin Calcium 40 MG eCW1 ([facility]) atorvastatin 40 MG Oral Tablet Atorvastatin Calcium 40 MG Atorvastatin Calcium 40 MG 03/26/2019 12:00:00 AM EST 1.0 {tablet} activ e Atorvastatin Calcium 40 MG eCW1 ([facility]) atorvastatin 40 MG Oral Tablet Atorvastatin Calcium 40 MG Atorvastatin Calcium 40 MG 03/26/2019 12:00:00 AM EST 1.0 {tablet} activ e Atorvastatin Calcium 40 MG eCW1 ([facility]) atorvastatin 40 MG Oral Tablet Atorvastatin Calcium 40 MG Atorvastatin Calcium 40 MG 03/26/2019 12:00:00 AM EST 1.0 {tablet} activ e Atorvastatin Calcium 40 MG eCW1 ([facility]) atorvastatin 40 MG Oral Tablet Atorvastatin Calcium 40 MG Atorvastatin Calcium 40 MG 03/26/2019 12:00:00 AM EST 1.0 {tablet} activ e Atorvastatin Calcium 40 MG eCW1 ([facility]) 10-325 mg 03/26/2019 12:00:00 AM EST tablet 120 TAKE 1 TABLET BY MOUTH EVERY 6 HOURS NEEDED MAXIMUM DAILY DOSE = 4 TABLETS TAKE 1 TABLET BY MOUTH EVERY 6 HOURS NEEDED MAXIMUM DAILY DOSE = 4 TABLETS SOLD: 03/26/2019 [facility] atorvastatin 40 MG Oral Tablet Atorvastatin Calcium 40 MG Atorvastatin Calcium 40 MG 03/26/2019 12:00:00 AM EST 1.0 {tablet} activ e Atorvastatin Calcium 40 MG eCW1 ([facility]) atorvastatin 40 MG Oral Tablet Atorvastatin Calcium 40 MG Atorvastatin Calcium 40 MG 03/26/2019 12:00:00 AM EST 1.0 {tablet} activ e Atorvastatin Calcium 40 MG eCW1 ([facility]) 1,250 mcg (50,000 unit) 03/26/2019 12:00:00 AM EST capsule 4 TAKE 1 CAPSULE BY MOUTH ONCE A WEEK ON MONDAYS TAKE 1 CAPSULE BY MOUTH ONCE A WEEK ON MONDAYS SOLD: 03/27/2019 [facility] atorvastatin 40 MG Oral Tablet Atorvastatin Calcium 40 MG Atorvastatin Calcium 40 MG 03/26/2019 12:00:00 AM EST 1.0 {tablet} activ e Atorvastatin Calcium 40 MG eCW1 ([facility]) atorvastatin 40 MG Oral Tablet Atorvastatin Calcium 40 MG Atorvastatin Calcium 40 MG 03/26/2019 12:00:00 AM EST 1.0 {tablet} activ e Atorvastatin Calcium 40 MG eCW1 ([facility]) atorvastatin 40 MG Oral Tablet Atorvastatin Calcium 40 MG Atorvastatin Calcium 40 MG 03/26/2019 12:00:00 AM EST 1.0 {tablet} activ e Atorvastatin Calcium 40 MG eCW1 ([facility]) atorvastatin 40 MG Oral Tablet Atorvastatin Calcium 40 MG Atorvastatin Calcium 40 MG 03/26/2019 12:00:00 AM EST 1.0 {tablet} activ e Atorvastatin Calcium 40 MG eCW1 ([facility]) atorvastatin 40 MG Oral Tablet Atorvastatin Calcium 40 MG Atorvastatin Calcium 40 MG 03/26/2019 12:00:00 AM EST 1.0 {tablet} activ e Atorvastatin Calcium 40 MG eCW1 ([facility]) atorvastatin 40 MG Oral Tablet Atorvastatin Calcium 40 MG Atorvastatin Calcium 40 MG 03/26/2019 12:00:00 AM EST 1.0 {tablet} activ e Atorvastatin Calcium 40 MG eCW1 ([facility]) atorvastatin 40 MG Oral Tablet Atorvastatin Calcium 40 MG Atorvastatin Calcium 40 MG 03/26/2019 12:00:00 AM EST 1.0 {tablet} activ e Atorvastatin Calcium 40 MG eCW1 ([facility]) atorvastatin 40 MG Oral Tablet Atorvastatin Calcium 40 MG Atorvastatin Calcium 40 MG 03/26/2019 12:00:00 AM EST 1.0 {tablet} activ e Atorvastatin Calcium 40 MG eCW1 ([facility]) atorvastatin 40 MG Oral Tablet Atorvastatin Calcium 40 MG Atorvastatin Calcium 40 MG 03/26/2019 12:00:00 AM EST 1.0 {tablet} activ e Atorvastatin Calcium 40 MG eCW1 ([facility]) atorvastatin 40 MG Oral Tablet Atorvastatin Calcium 40 MG Atorvastatin Calcium 40 MG 03/26/2019 12:00:00 AM EST 1.0 {tablet} activ e Atorvastatin Calcium 40 MG eCW1 ([facility]) atorvastatin 40 MG Oral Tablet Atorvastatin Calcium 40 MG Atorvastatin Calcium 40 MG 03/26/2019 12:00:00 AM EST 1.0 {tablet} activ e Atorvastatin Calcium 40 MG eCW1 ([facility]) atorvastatin 40 MG Oral Tablet Atorvastatin Calcium 40 MG Atorvastatin Calcium 40 MG 03/26/2019 12:00:00 AM EST 1.0 {tablet} activ e Atorvastatin Calcium 40 MG eCW1 ([facility]) atorvastatin 40 MG Oral Tablet Atorvastatin Calcium 40 MG Atorvastatin Calcium 40 MG 03/26/2019 12:00:00 AM EST active 1 tablet eCW1 ([facility]) atorvastatin 40 MG Oral Tablet Atorvastatin Calcium 40 MG Atorvastatin Calcium 40 MG 03/26/2019 12:00:00 AM EST 1.0 {tablet} activ e Atorvastatin Calcium 40 MG eCW1 ([facility]) atorvastatin 40 MG Oral Tablet Atorvastatin Calcium 40 MG Atorvastatin Calcium 40 MG 03/26/2019 12:00:00 AM EST 1.0 {tablet} activ e Atorvastatin Calcium 40 MG eCW1 ([facility]) atorvastatin 40 MG Oral Tablet Atorvastatin Calcium 40 MG Atorvastatin Calcium 40 MG 03/26/2019 12:00:00 AM EST 1.0 {tablet} activ e Atorvastatin Calcium 40 MG eCW1 ([facility]) atorvastatin 40 MG Oral Tablet Atorvastatin Calcium 40 MG Atorvastatin Calcium 40 MG 03/26/2019 12:00:00 AM EST 1.0 {tablet} activ e Atorvastatin Calcium 40 MG eCW1 ([facility]) atorvastatin 40 MG Oral Tablet Atorvastatin Calcium 40 MG Atorvastatin Calcium 40 MG 03/26/2019 12:00:00 AM EST 1.0 {tablet} activ e Atorvastatin Calcium 40 MG eCW1 ([facility]) atorvastatin 40 MG Oral Tablet Atorvastatin Calcium 40 MG Atorvastatin Calcium 40 MG 03/26/2019 12:00:00 AM EST 1.0 {tablet} activ e Atorvastatin Calcium 40 MG eCW1 ([facility]) atorvastatin 40 MG Oral Tablet Atorvastatin Calcium 40 MG Atorvastatin Calcium 40 MG 03/26/2019 12:00:00 AM EST 1.0 {tablet} activ e Atorvastatin Calcium 40 MG eCW1 ([facility]) atorvastatin 40 MG Oral Tablet Atorvastatin Calcium 40 MG Atorvastatin Calcium 40 MG 03/26/2019 12:00:00 AM EST 1.0 {tablet} activ e Atorvastatin Calcium 40 MG eCW1 ([facility]) atorvastatin 40 MG Oral Tablet Atorvastatin Calcium 40 MG Atorvastatin Calcium 40 MG 03/26/2019 12:00:00 AM EST 1.0 {tablet} activ e Atorvastatin Calcium 40 MG eCW1 ([facility]) atorvastatin 40 MG Oral Tablet Atorvastatin Calcium 40 MG Atorvastatin Calcium 40 MG 03/26/2019 12:00:00 AM EST 1.0 {tablet} activ e Atorvastatin Calcium 40 MG eCW1 ([facility]) atorvastatin 40 MG Oral Tablet Atorvastatin Calcium 40 MG Atorvastatin Calcium 40 MG 03/26/2019 12:00:00 AM EST 1.0 {tablet} activ e Atorvastatin Calcium 40 MG eCW1 ([facility]) Nystatin [id number] UNT/ML Topical Cream Nystatin [id number] U NIT/GM Nystatin [id number] UNIT/GM 03/26/2019 12:00:00 AM EST active 1 application 2g eCW1 ([facility]) atorvastatin 40 MG Oral Tablet Atorvastatin Calcium 40 MG Atorvastatin Calcium 40 MG 03/26/2019 12:00:00 AM EST 1.0 {tablet} activ e Atorvastatin Calcium 40 MG eCW1 ([facility]) Ergocalciferol [id number] UNT Oral Capsule Vi tamin D (Ergocalciferol) 1.25 MG (43184 UT) Oral Capsule (ERGOCALCIFEROL) Vitamin D (Ergocalciferol) 1.25 MG (5000 0 UT) Oral Capsule (ERGOCALCIFEROL) 03/26/2019 12:00:00 AM EST active [facility] Losartan Potassium 50 MG Oral Tablet [place] Potassium 50 MG Oral Tablet (COZAAR) Losartan Potassium 50 MG Oral Tablet (COZAAR) 03/26/19 20 12:00:00 AM EST active [facility] atorvastatin 40 MG Oral Tablet Atorvastatin Calcium 40 MG Oral Tablet (LIPITOR) Atorvastatin Calcium 40 MG Oral Tablet (LIPITOR) 03/26/2019 12:00:00 AM EST active [facility] atorvastatin 40 MG Oral Tablet Atorvastatin Calcium 40 MG Atorvastatin Calcium 40 MG 03/26/2019 12:00:00 AM EST active 1 tablet eCW1 ([facility]) atorvastatin 40 MG Oral Tablet Atorvastatin Calcium 40 MG Atorvastatin Calcium 40 MG 03/26/2019 12:00:00 AM EST 1.0 {tablet} activ e Atorvastatin Calcium 40 MG eCW1 ([facility]) atorvastatin 40 MG Oral Tablet Atorvastatin Calcium 40 MG Atorvastatin Calcium 40 MG 03/26/2019 12:00:00 AM EST 1.0 {tablet} activ e Atorvastatin Calcium 40 MG eCW1 ([facility]) atorvastatin 40 MG Oral Tablet Atorvastatin Calcium 40 MG Atorvastatin Calcium 40 MG 03/26/2019 12:00:00 AM EST 1.0 {tablet} activ e Atorvastatin Calcium 40 MG eCW1 ([facility]) Nystatin [id number] UNT/ML Topical Cream Nystatin [id number] U NIT/GM Nystatin [id number] UNIT/GM 03/26/2019 12:00:00 AM EST active 1 application 2g eCW1 ([facility]) atorvastatin 40 MG Oral Tablet Atorvastatin Calcium 40 MG Atorvastatin Calcium 40 MG 03/26/2019 12:00:00 AM EST 1.0 {tablet} activ e Atorvastatin Calcium 40 MG eCW1 ([facility]) atorvastatin 40 MG Oral Tablet Atorvastatin Calcium 40 MG Atorvastatin Calcium 40 MG 03/26/2019 12:00:00 AM EST 1.0 {tablet} activ e Atorvastatin Calcium 40 MG eCW1 ([facility]) atorvastatin 40 MG Oral Tablet Atorvastatin Calcium 40 MG Atorvastatin Calcium 40 MG 03/26/2019 12:00:00 AM EST 1.0 {tablet} activ e Atorvastatin Calcium 40 MG eCW1 ([facility]) atorvastatin 40 MG Oral Tablet Atorvastatin Calcium 40 MG Atorvastatin Calcium 40 MG 03/26/2019 12:00:00 AM EST 1.0 {tablet} activ e Atorvastatin Calcium 40 MG eCW1 ([facility]) atorvastatin 40 MG Oral Tablet Atorvastatin Calcium 40 MG Atorvastatin Calcium 40 MG 03/26/2019 12:00:00 AM EST active 1 tablet eCW1 ([facility]) atorvastatin 40 MG Oral Tablet Atorvastatin Calcium 40 MG Atorvastatin Calcium 40 MG 03/26/2019 12:00:00 AM EST 1.0 {tablet} activ e Atorvastatin Calcium 40 MG eCW1 ([facility]) atorvastatin 40 MG Oral Tablet Atorvastatin Calcium 40 MG Atorvastatin Calcium 40 MG 03/26/2019 12:00:00 AM EST 1.0 {tablet} activ e Atorvastatin Calcium 40 MG eCW1 ([facility]) atorvastatin 40 MG Oral Tablet Atorvastatin Calcium 40 MG Atorvastatin Calcium 40 MG 03/26/2019 12:00:00 AM EST 1.0 {tablet} activ e Atorvastatin Calcium 40 MG eCW1 ([facility]) atorvastatin 40 MG Oral Tablet Atorvastatin Calcium 40 MG Atorvastatin Calcium 40 MG 03/26/2019 12:00:00 AM EST 1.0 {tablet} activ e Atorvastatin Calcium 40 MG eCW1 ([facility]) atorvastatin 40 MG Oral Tablet Atorvastatin Calcium 40 MG Atorvastatin Calcium 40 MG 03/26/2019 12:00:00 AM EST 1.0 {tablet} activ e Atorvastatin Calcium 40 MG eCW1 ([facility]) atorvastatin 40 MG Oral Tablet Atorvastatin Calcium 40 MG Atorvastatin Calcium 40 MG 03/26/2019 12:00:00 AM EST 1.0 {tablet} activ e Atorvastatin Calcium 40 MG eCW1 ([facility]) atorvastatin 40 MG Oral Tablet Atorvastatin Calcium 40 MG Atorvastatin Calcium 40 MG 03/26/2019 12:00:00 AM EST 1.0 {tablet} activ e Atorvastatin Calcium 40 MG eCW1 ([facility]) Nystatin 367680 UNT/ML Topical Cream Nystatin 047910 U NIT/GM Nystatin [id number] UNIT/GM 03/26/2019 12:00:00 AM EST active 1 application 2g eCW1 ([facility]) atorvastatin 40 MG Oral Tablet Atorvastatin Calcium 40 MG Atorvastatin Calcium 40 MG 03/26/2019 12:00:00 AM EST 1.0 {tablet} activ e Atorvastatin Calcium 40 MG eCW1 ([facility]) atorvastatin 40 MG Oral Tablet Atorvastatin Calcium 40 MG Atorvastatin Calcium 40 MG 03/26/2019 12:00:00 AM EST 1.0 {tablet} activ e Atorvastatin Calcium 40 MG eCW1 ([facility]) atorvastatin 40 MG Oral Tablet Atorvastatin Calcium 40 MG Atorvastatin Calcium 40 MG 03/26/2019 12:00:00 AM EST active 1 tablet eCW1 ([facility]) atorvastatin 40 MG Oral Tablet Atorvastatin Calcium 40 MG Atorvastatin Calcium 40 MG 03/26/2019 12:00:00 AM EST 1.0 {tablet} activ e Atorvastatin Calcium 40 MG eCW1 ([facility]) atorvastatin 40 MG Oral Tablet Atorvastatin Calcium 40 MG Atorvastatin Calcium 40 MG 03/26/2019 12:00:00 AM EST 1.0 {tablet} activ e Atorvastatin Calcium 40 MG eCW1 ([facility]) atorvastatin 40 MG Oral Tablet Atorvastatin Calcium 40 MG Atorvastatin Calcium 40 MG 03/26/2019 12:00:00 AM EST 1.0 {tablet} activ e Atorvastatin Calcium 40 MG eCW1 ([facility]) atorvastatin 40 MG Oral Tablet Atorvastatin Calcium 40 MG Atorvastatin Calcium 40 MG 03/26/2019 12:00:00 AM EST 1.0 {tablet} activ e Atorvastatin Calcium 40 MG eCW1 ([facility]) atorvastatin 40 MG Oral Tablet Atorvastatin Calcium 40 MG Atorvastatin Calcium 40 MG 03/26/2019 12:00:00 AM EST 1.0 {tablet} activ e Atorvastatin Calcium 40 MG eCW1 ([facility]) atorvastatin 40 MG Oral Tablet Atorvastatin Calcium 40 MG Atorvastatin Calcium 40 MG 03/26/2019 12:00:00 AM EST active 1 tablet eCW1 ([facility]) atorvastatin 40 MG Oral Tablet Atorvastatin Calcium 40 MG Atorvastatin Calcium 40 MG 03/26/2019 12:00:00 AM EST 1.0 {tablet} activ e Atorvastatin Calcium 40 MG eCW1 ([facility]) atorvastatin 40 MG Oral Tablet Atorvastatin Calcium 40 MG Atorvastatin Calcium 40 MG 03/26/2019 12:00:00 AM EST 1.0 {tablet} activ e Atorvastatin Calcium 40 MG eCW1 ([facility]) atorvastatin 40 MG Oral Tablet Atorvastatin Calcium 40 MG Atorvastatin Calcium 40 MG 03/26/2019 12:00:00 AM EST 1.0 {tablet} activ e Atorvastatin Calcium 40 MG eCW1 ([facility]) atorvastatin 40 MG Oral Tablet Atorvastatin Calcium 40 MG Atorvastatin Calcium 40 MG 03/26/2019 12:00:00 AM EST 1.0 {tablet} activ e Atorvastatin Calcium 40 MG eCW1 ([facility]) atorvastatin 40 MG Oral Tablet Atorvastatin Calcium 40 MG Atorvastatin Calcium 40 MG 03/26/2019 12:00:00 AM EST 1.0 {tablet} activ e Atorvastatin Calcium 40 MG eCW1 ([facility]) atorvastatin 40 MG Oral Tablet Atorvastatin Calcium 40 MG Atorvastatin Calcium 40 MG 03/26/2019 12:00:00 AM EST 1.0 {tablet} activ e Atorvastatin Calcium 40 MG eCW1 ([facility]) atorvastatin 40 MG Oral Tablet Atorvastatin Calcium 40 MG Atorvastatin Calcium 40 MG 03/26/2019 12:00:00 AM EST 1.0 {tablet} activ e Atorvastatin Calcium 40 MG eCW1 ([facility]) Nystatin 625114 UNT/ML Topical Cream Nystatin 233261 U NIT/GM Nystatin 855564 UNIT/GM 03/26/2019 12:00:00 AM EST active 1 application 2g eCW1 ([facility]) atorvastatin 40 MG Oral Tablet Atorvastatin Calcium 40 MG Atorvastatin Calcium 40 MG 03/26/2019 12:00:00 AM EST 1.0 {tablet} activ e Atorvastatin Calcium 40 MG eCW1 ([facility]) atorvastatin 40 MG Oral Tablet Atorvastatin Calcium 40 MG Atorvastatin Calcium 40 MG 03/26/2019 12:00:00 AM EST 1.0 {tablet} activ e Atorvastatin Calcium 40 MG eCW1 ([facility]) atorvastatin 40 MG Oral Tablet Atorvastatin Calcium 40 MG Atorvastatin Calcium 40 MG 03/26/2019 12:00:00 AM EST 1.0 {tablet} activ e Atorvastatin Calcium 40 MG eCW1 ([facility]) atorvastatin 40 MG Oral Tablet Atorvastatin Calcium 40 MG Atorvastatin Calcium 40 MG 03/26/2019 12:00:00 AM EST 1.0 {tablet} activ e Atorvastatin Calcium 40 MG eCW1 ([facility]) atorvastatin 40 MG Oral Tablet Atorvastatin Calcium 40 MG Atorvastatin Calcium 40 MG 03/26/2019 12:00:00 AM EST 1.0 {tablet} activ e Atorvastatin Calcium 40 MG eCW1 ([facility]) atorvastatin 40 MG Oral Tablet Atorvastatin Calcium 40 MG Atorvastatin Calcium 40 MG 03/26/2019 12:00:00 AM EST 1.0 {tablet} activ e Atorvastatin Calcium 40 MG eCW1 ([facility]) atorvastatin 40 MG Oral Tablet Atorvastatin Calcium 40 MG Atorvastatin Calcium 40 MG 03/26/2019 12:00:00 AM EST 1.0 {tablet} activ e Atorvastatin Calcium 40 MG eCW1 ([facility]) atorvastatin 40 MG Oral Tablet Atorvastatin Calcium 40 MG Atorvastatin Calcium 40 MG 03/26/2019 12:00:00 AM EST 1.0 {tablet} activ e Atorvastatin Calcium 40 MG eCW1 ([facility]) atorvastatin 40 MG Oral Tablet Atorvastatin Calcium 40 MG Atorvastatin Calcium 40 MG 03/26/2019 12:00:00 AM EST 1.0 {tablet} activ e Atorvastatin Calcium 40 MG eCW1 ([facility]) atorvastatin 40 MG Oral Tablet Atorvastatin Calcium 40 MG Atorvastatin Calcium 40 MG 03/26/2019 12:00:00 AM EST 1.0 {tablet} activ e Atorvastatin Calcium 40 MG eCW1 ([facility]) Nystatin 215751 UNT/ML Topical Cream Nystatin 019987 U NIT/GM Nystatin 010267 UNIT/GM 03/26/2019 12:00:00 AM EST active 1 application 2g eCW1 ([facility]) atorvastatin 40 MG Oral Tablet Atorvastatin Calcium 40 MG Atorvastatin Calcium 40 MG 03/26/2019 12:00:00 AM EST 1.0 {tablet} activ e Atorvastatin Calcium 40 MG eCW1 ([facility]) atorvastatin 40 MG Oral Tablet Atorvastatin Calcium 40 MG Atorvastatin Calcium 40 MG 03/26/2019 12:00:00 AM EST 1.0 {tablet} activ e Atorvastatin Calcium 40 MG eCW1 ([facility]) atorvastatin 40 MG Oral Tablet Atorvastatin Calcium 40 MG Atorvastatin Calcium 40 MG 03/26/2019 12:00:00 AM EST 1.0 {tablet} activ e Atorvastatin Calcium 40 MG eCW1 ([facility]) atorvastatin 40 MG Oral Tablet Atorvastatin Calcium 40 MG Atorvastatin Calcium 40 MG 03/26/2019 12:00:00 AM EST active 1 tablet eCW1 ([facility]) atorvastatin 40 MG Oral Tablet Atorvastatin Calcium 40 MG Atorvastatin Calcium 40 MG 03/26/2019 12:00:00 AM EST 1.0 {tablet} activ e Atorvastatin Calcium 40 MG eCW1 ([facility]) atorvastatin 40 MG Oral Tablet Atorvastatin Calcium 40 MG Atorvastatin Calcium 40 MG 03/26/2019 12:00:00 AM EST 1.0 {tablet} activ e Atorvastatin Calcium 40 MG eCW1 ([facility]) atorvastatin 40 MG Oral Tablet Atorvastatin Calcium 40 MG Atorvastatin Calcium 40 MG 03/26/2019 12:00:00 AM EST 1.0 {tablet} activ e Atorvastatin Calcium 40 MG eCW1 ([facility]) atorvastatin 40 MG Oral Tablet Atorvastatin Calcium 40 MG Atorvastatin Calcium 40 MG 03/26/2019 12:00:00 AM EST 1.0 {tablet} activ e Atorvastatin Calcium 40 MG eCW1 ([facility]) atorvastatin 40 MG Oral Tablet Atorvastatin Calcium 40 MG Atorvastatin Calcium 40 MG 03/26/2019 12:00:00 AM EST 1.0 {tablet} activ e Atorvastatin Calcium 40 MG eCW1 ([facility]) atorvastatin 40 MG Oral Tablet Atorvastatin Calcium 40 MG Atorvastatin Calcium 40 MG 03/26/2019 12:00:00 AM EST 1.0 {tablet} activ e Atorvastatin Calcium 40 MG eCW1 ([facility]) atorvastatin 40 MG Oral Tablet Atorvastatin Calcium 40 MG Atorvastatin Calcium 40 MG 03/26/2019 12:00:00 AM EST 1.0 {tablet} activ e Atorvastatin Calcium 40 MG eCW1 ([facility]) atorvastatin 40 MG Oral Tablet Atorvastatin Calcium 40 MG Atorvastatin Calcium 40 MG 03/26/2019 12:00:00 AM EST 1.0 {tablet} activ e Atorvastatin Calcium 40 MG eCW1 ([facility]) Nystatin 152704 UNT/ML Topical Cream Nystatin 748822 U NIT/GM Nystatin 405995 UNIT/GM 03/26/2019 12:00:00 AM EST active 1 application eCW1 ([facility]) atorvastatin 40 MG Oral Tablet Atorvastatin Calcium 40 MG Atorvastatin Calcium 40 MG 03/26/2019 12:00:00 AM EST 1.0 {tablet} activ e Atorvastatin Calcium 40 MG eCW1 ([facility]) atorvastatin 40 MG Oral Tablet Atorvastatin Calcium 40 MG Atorvastatin Calcium 40 MG 03/26/2019 12:00:00 AM EST 1.0 {tablet} activ e Atorvastatin Calcium 40 MG eCW1 ([facility]) atorvastatin 40 MG Oral Tablet Atorvastatin Calcium 40 MG Atorvastatin Calcium 40 MG 03/26/2019 12:00:00 AM EST active 1 tablet eCW1 ([facility]) atorvastatin 40 MG Oral Tablet Atorvastatin Calcium 40 MG Atorvastatin Calcium 40 MG 03/26/2019 12:00:00 AM EST 1.0 {tablet} activ e Atorvastatin Calcium 40 MG eCW1 ([facility]) Acetaminophen 325 MG / Oxycodone Hydroch loride 10 MG Oral Tablet [Percocet] Percocet 10-325 MG Percocet 10-325 MG 03/25/2019 12:00:00 AM EST active 1 tablet as needed eCW1 ([facility]) Morphine Sulfate 15 MG Extended Release Oral Tablet Mo rphine Sulfate ER 15 MG Morphine Sulfate ER 15 MG 03/10/2019 12:00:00 AM EST active 1 to 2 as directed eCW1 ([facility]) Morphine Sulfate 15 MG Extended Release Oral Tablet Mo rphine Sulfate ER 15 MG Morphine Sulfate ER 15 MG 03/10/2019 12:00:00 AM EST active 1 to 2 as directed eCW1 ([facility]) Morphine Sulfate 15 MG Extended Release Oral Tablet Mo rphine Sulfate ER 15 MG Morphine Sulfate ER 15 MG 03/10/2019 12:00:00 AM EST active 1 to 2 as directed eCW1 ([facility]) 15 mg 03/10/2019 12:00:00 AM EST tablet extended release 90 TAKE 1 TABLET BY MOUTH IN THE MORNING AND 2 AT BEDTIME MAXIMUM DAILY DOSE = 3 TAKE 1 TABLET BY MOUTH IN THE MORNING AND 2 AT BEDTIME MAXIMUM DAILY DOSE = 3 SOLD: 03/13/2019 [facility] Morphine Sulfate 15 MG Extended Release Oral Tablet Mo rphine Sulfate ER 15 MG Morphine Sulfate ER 15 MG 03/10/2019 12:00:00 AM EST active 1 to 2 as directed eCW1 ([facility]) Morphine Sulfate 15 MG Extended Release Oral Tablet Mo rphine Sulfate ER 15 MG Morphine Sulfate ER 15 MG 03/10/2019 12:00:00 AM EST active 1 to 2 as directed eCW1 ([facility]) 5 mg 03/05/2019 12:00:00 AM EST tablet 60 TAKE ONE TABLET BY MOUTH EVERY 12 HOURS NEEDED FOR ANXIETY MAXIMUM DAILY DOSE = 2 TABLETS TAKE ONE TABLET BY MOUTH EVERY 12 HOURS NEEDED FOR ANXIETY MAXIMUM DAILY DOSE = 2 TABLETS SOLD: 03/05/2019 [facility] Diazepam 5 MG Oral Tablet diazePAM 5 MG Oral Tablet (V ALIUM) diazePAM 5 MG Oral Tablet (VALIUM) 03/05/2019 12:00:00 AM EST 5 mg Oral ac tive Take 1 tablet by mouth every 12 (twelve) hours as needed for Anxiety, Max Daily Dose: 10 mg [facility] 300 mg 02/24/2019 12:00:00 AM EST capsule 60 TAKE ONE CAPSULE BY MOUTH TWICE A DAY MAXIMUM DAILY DOSE = 2 CAPSULES TAKE ONE CAPSULE BY MOUTH TWICE A DAY MAXIMUM DAILY DOSE = 2 CAPSULES SOLD: 06/26/2019 [facility] 300 mg 02/24/2019 12:00:00 AM EST capsule 60 TAKE ONE CAPSULE BY MOUTH TWICE A DAY MAXIMUM DAILY DOSE = 2 CAPSULES TAKE ONE CAPSULE BY MOUTH TWICE A DAY MAXIMUM DAILY DOSE = 2 CAPSULES SOLD: 03/26/2019 [facility] 300 mg 02/24/2019 12:00:00 AM EST capsule 60 TAKE ONE CAPSULE BY MOUTH TWICE A DAY MAXIMUM DAILY DOSE = 2 CAPSULES TAKE ONE CAPSULE BY MOUTH TWICE A DAY MAXIMUM DAILY DOSE = 2 CAPSULES SOLD: 02/25/2019 [facility] 300 mg 02/24/2019 12:00:00 AM EST capsule 60 TAKE ONE CAPSULE BY MOUTH TWICE A DAY MAXIMUM DAILY DOSE = 2 CAPSULES TAKE ONE CAPSULE BY MOUTH TWICE A DAY MAXIMUM DAILY DOSE = 2 CAPSULES SOLD: 05/25/2019 [facility] 300 mg 02/24/2019 12:00:00 AM EST capsule 60 TAKE ONE CAPSULE BY MOUTH TWICE A DAY MAXIMUM DAILY DOSE = 2 CAPSULES TAKE ONE CAPSULE BY MOUTH TWICE A DAY MAXIMUM DAILY DOSE = 2 CAPSULES SOLD: 04/25/2019 [facility] 10-325 mg 02/22/2019 12:00:00 AM EST tablet 120 TAKE ONE TABLET BY MOUTH EVERY 6 HOURS NEEDED * MAXIMUM DAILY DOSE = 4 TAKE ONE TABLET BY MOUTH EVERY 6 HOURS NEEDED * MAXIMUM DAILY DOSE = 4 SOLD: 02/22/2019 [facility] Acetaminophen 325 MG / Oxycodone Hydroch loride 10 MG Oral Tablet [Percocet] Percocet 10-325 MG Percocet 10-325 MG 02/17/2019 12:00:00 AM EST active 1 tablet as needed eCW1 ([facility]) Acetaminophen 325 MG / Oxycodone Hydroch loride 10 MG Oral Tablet [Percocet] Percocet 10-325 MG Percocet 10-325 MG 02/17/2019 12:00:00 AM EST active 1 tablet as needed eCW1 ([facility]) Acetaminophen 325 MG / Oxycodone Hydroch loride 10 MG Oral Tablet [Percocet] Percocet 10-325 MG Percocet 10-325 MG 02/17/2019 12:00:00 AM EST active 1 tablet as needed eCW1 ([facility]) Acetaminophen 325 MG / Oxycodone Hydroch loride 10 MG Oral Tablet [Percocet] Percocet 10-325 MG Percocet 10-325 MG 02/17/2019 12:00:00 AM EST active 1 tablet as needed eCW1 ([facility]) Acetaminophen 325 MG / Oxycodone Hydroch loride 10 MG Oral Tablet [Percocet] Percocet 10-325 MG Percocet 10-325 MG 02/17/2019 12:00:00 AM EST active 1 tablet as needed eCW1 ([facility]) Percocet 10-325 MG UNK 02/17/2019 12:00:00 AM EST active 1 tablet as needed eCW1 ([facility]) Acetaminophen 325 MG / Oxycodone Hydroch loride 10 MG Oral Tablet [Percocet] Percocet 10-325 MG Percocet 10-325 MG 02/17/2019 12:00:00 AM EST active 1 tablet as needed eCW1 ([facility]) Acetaminophen 325 MG / Oxycodone Hydroch loride 10 MG Oral Tablet [Percocet] Percocet 10-325 MG Percocet 10-325 MG 02/17/2019 12:00:00 AM EST active 1 tablet as needed eCW1 ([facility]) Amitriptyline Hydrochloride 25 MG Oral Tablet AMITRIPTYLINE HCL 02/14/2019 12:00:00 AM EST tablet 90 TAKE THREE TABLETS BY ADENIKE TH EVERY DAY TAKE THREE TABLETS BY MOUTH EVERY DAY SOLD: 03/13/2019 [facility] Amitriptyline Hydrochloride 25 MG Oral Tablet AMITRIPTYLINE HCL 02/14/2019 12:00:00 AM EST tablet 9 TAKE THREE TABLETS BY ADENIKE TH EVERY DAY TAKE THREE TABLETS BY MOUTH EVERY DAY SOLD: 08/15/2019 [facility] Amitriptyline Hydrochloride 25 MG Oral Tablet AMITRIPTYLINE HCL 02/14/2019 12:00:00 AM EST tablet 90 TAKE THREE TABLETS BY ADENIKE TH EVERY DAY TAKE THREE TABLETS BY MOUTH EVERY DAY SOLD: 02/14/2019 [facility] 15 mg 02/13/2019 12:00:00 AM EST tablet extended release 90 TAKE ONE TABLET BY MOUTH EVERY MORNING AND TAKE TWO TABLETS BY MOUTH AT BEDTIME MAXIMUM DAILY DOSE = 3 TAKE ONE TABLET BY MOUTH EVERY MORNING A ND TAKE TWO TABLETS BY MOUTH AT BEDTIME MAXIMUM DAILY DOSE = 3 SOLD: 02/14/2019 [facility] Morphine Sulfate 15 MG Extended Release Oral Tablet Mo rphine Sulfate ER 15 MG Morphine Sulfate ER 15 MG 02/12/2019 12:00:00 AM EST active 1 to 2 as directed eCW1 ([facility]) Morphine Sulfate ER 15 MG UNK 02/12/2019 12:00:00 AM EST active 1 to 2 as directed eCW1 ([facility]) Morphine Sulfate 15 MG Extended Release Oral Tablet Mo rphine Sulfate ER 15 MG Morphine Sulfate ER 15 MG 02/12/2019 12:00:00 AM EST active 1 to 2 as directed eCW1 ([facility]) 5 mg 02/03/2019 12:00:00 AM EST tablet 60 TAKE ONE TABLET BY MOUTH EVERY 12 HOURS NEEDED FOR ANXIETY MAXIMUM DAILY DOSE = 2 TAKE ONE TABLET BY MOUTH EVERY 12 HOURS NEEDED FOR ANXIETY MAXIMUM DAILY DOSE = 2 SOLD: 02/03/2019 [facility] 10-325 mg 01/24/2019 12:00:00 AM EST tablet 120 TAKE ONE TABLET BY MOUTH EVERY 6 HOURS NEEDED MAXIMUM DAILY DOSE = 4 TAKE ONE TABLET BY MOUTH EVERY 6 HOURS NEEDED MAXIMUM DAILY DOSE = 4 SOLD: 01/24/2019 [facility] Acetaminophen 325 MG / Oxycodone Hydroch loride 10 MG Oral Tablet [Percocet] Percocet 10-325 MG Percocet 10-325 MG 01/19/2019 12:00:00 AM EST active 1 tablet as needed eCW1 ([facility]) Morphine Sulfate 15 MG Extended Release Oral Tablet Mo rphine Sulfate ER 15 MG Morphine Sulfate ER 15 MG 01/15/2019 12:00:00 AM EST active 1 to 2 as directed eCW1 ([facility]) 15 mg 01/15/2019 12:00:00 AM EST tablet extended release 90 TAKE 1 TABLET BY MOUTH IN THE MORNING AND 2 AT BEDTIME MAXIMUM DAILY DOSE = 3 TAKE 1 TABLET BY MOUTH IN THE MORNING AND 2 AT BEDTIME MAXIMUM DAILY DOSE = 3 SOLD: 01/15/2019 [facility] Morphine Sulfate 15 MG Extended Release Oral Tablet Mo rphine Sulfate ER 15 MG Morphine Sulfate ER 15 MG 01/15/2019 12:00:00 AM EST active 1 to 2 as directed eCW1 ([facility]) 5 mg 01/07/2019 12:00:00 AM EST tablet 60 TAKE ONE TABLET BY MOUTH EVERY 12 HOURS NEEDED FOR ANXIETY MAXIMUM DAILY DOSE = 2 TAKE ONE TABLET BY MOUTH EVERY 12 HOURS NEEDED FOR ANXIETY MAXIMUM DAILY DOSE = 2 SOLD: 01/09/2019 [facility] duloxetine 30 MG Delayed Release Oral Ca psule DULoxetine HCl 30 MG Oral Capsule Delayed Release Particles (CYMBALTA) DULoxetine HCl 30 MG Oral Capsule Delaye d Release Particles (CYMBALTA) 12/30/2018 12:00:[address] [facility] Carisoprodol 350 MG Oral Tablet CARISOPRODOL 12/05/2018 12:00:00 AM EDT tablet 90 TAKE ONE TABLET BY MOUTH EVERY 8 HOURS, MAXIMUM DAILY DOSE = 3 TABLETS TAKE ONE TABLET BY MOUTH EVERY 8 HOURS, MAXIMUM DAILY DOSE = 3 TABLETS SOLD: 01/07/2019 [facility] Carisoprodol 350 MG Oral Tablet CARISOPRODOL 12/05/2018 12:00:00 AM EDT tablet 90 TAKE ONE TABLET BY MOUTH EVERY 8 HOURS, MAXIMUM DAILY DOSE = 3 TABLETS TAKE ONE TABLET BY MOUTH EVERY 8 HOURS, MAXIMUM DAILY DOSE = 3 TABLETS SOLD: 02/03/2019 [facility] Carisoprodol 350 MG Oral Tablet CARISOPRODOL 12/05/2018 12:00:00 AM EDT tablet 90 TAKE ONE TABLET BY MOUTH EVERY 8 HOURS, MAXIMUM DAILY DOSE = 3 TABLETS TAKE ONE TABLET BY MOUTH EVERY 8 HOURS, MAXIMUM DAILY DOSE = 3 TABLETS SOLD: 03/04/2019 [facility] 350 mg 12/05/2018 12:00:00 AM EDT tablet 90 TAKE ONE TABLET BY MOUTH EVERY 8 HOURS, MAXIMUM DAILY DOSE = 3 TABLETS TAKE ONE TABLET BY MOUTH EVERY 8 HOURS, MAXIMUM DAILY DOSE = 3 TABLETS SOLD: 04/04/2019 [facility] 350 mg 12/05/2018 12:00:00 AM EDT tablet 90 TAKE ONE TABLET BY MOUTH EVERY 8 HOURS, MAXIMUM DAILY DOSE = 3 TABLETS TAKE ONE TABLET BY MOUTH EVERY 8 HOURS, MAXIMUM DAILY DOSE = 3 TABLETS SOLD: 05/02/2019 [facility] 300 mg 11/22/2018 12:00:00 AM EDT capsule 60 TAKE ONE CAPSULE BY MOUTH TWICE A DAY MAXIMUM DAILY DOSE = 2 CAPSULE TAKE ONE CAPSULE BY MOUTH TWICE A DAY MAXIMUM DAILY DOSE = 2 CAPSULE SOLD: 01/24/2019 [facility] Amitriptyline Hydrochloride 25 MG Oral Tablet AMITRIPTYLINE HCL 11/11/2018 12:00:00 AM EDT tablet 90 TAKE THREE TABLETS BY ADENIKE TH EVERY DAY TAKE THREE TABLETS BY MOUTH EVERY DAY SOLD: 01/21/2019 [facility] 20 mg 11/07/2018 12:00:00 AM EDT tablet 120 TAKE ONE TABLET BY MOUTH FOUR TIMES A DAY WITH FOOD OR MILK TAKE ONE TABLET BY MOUTH FOUR TIMES A DA Y WITH FOOD OR MILK SOLD: 02/07/2019 [facility] 800 mg 10/14/2018 12:00:00 AM EDT tablet 90 TAKE ONE TABLET BY MOUTH THREE TIMES A DAY NEEDED TAKE ONE TABLET BY MOUTH THREE TIMES A DAY NEEDED S OLD: 01/10/2019 [facility] Losartan Potassium 25 MG Oral Tablet losartan (COZAAR) 25 MG tablet losartan (COZAAR) 25 MG tablet 05/14/2018 12:00:00 AM EDT 25 mg Oral aborted Take 25 mg by mouth daily [facility] Propranolol Hydrochloride 20 MG Oral Tablet propranolo l (INDERAL) 20 MG tablet propranolol (INDERAL) 20 MG tablet 01/13/2018 12:00:00 AM EST aborted TAKE ONE TABLET BY MOUTH EVERY DAY ON EM PTY STOMACH [facility] Oxycodone Hydrochloride 5 MG Oral Tablet oxyCODONE (ROXICODONE) 5 MG immediate release tablet oxyCODONE (ROXICODONE) 5 MG immediate release tablet 0 06/25/2017 12:00:00 AM EDT aborted Take 1 PO q4h prn pain, MDD = 6 [facility] Insurance Providers Payer name Policy type / Coverage type Policy ID Covered libertarian ID Covered libertarian's relationship to daly Policy Daly Plan Information MEDICARE [id number] SP [id number] [employer] BC-BS PPO 306 [id number] SP [id number] MEDICARE C [id number] S [id number] [place]/307 [id number] SP [id number] [place] 302/307 [id number] SP [id number] [place] BC-BS PPO 306 [id number] SP [id number] [employer] BCBS B [id number] S [id number] TRAVELERS WC W [id number] Empl [id number] [place] 220/720 [id number] SP [id number] BCBS [employer] [id number] SP [id number] [place] P[place] 302/307 [id number] SP [id number] [place] 302/307 [id number] SP [id number] EXCELLUS H [id number] Self [id number] [place] BC-BS PPO 306 [id number] SP [id number] 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 [id number] SP [id number] TRAVELERS-WC WCB# [id number] SP WCB # [id number] [place] P[place] 302/307 [id number] SP [id number] 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 [id number] SP [id number] [place] BCBS B [id number] S [id number] 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 WCB# [id number] WCB# [id number] 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 [id number] SP [id number] TRA[employer]ERS-[employer] WCB# [id number] SP WCB # [id number] 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 [id number] SP [id number] 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 [id number] SP [id number] OTHER WORKERS COMPENSATI O WCB#[id number] S WCB#[id number] TRAVELERS WC W [id number] Empl [id number] ANSI-Commercial [id number] ANSI-Not a Secondary Insurance [id number] ANSI-Not a Secondary Insurance [id number] ANSI-Commercial [id number] ANSI-Not a Secondary Insurance [id number] ANSI-Commercial [id number] ANSI-Commercial [id number] ANSI-Not a Secondary Insurance [id number] 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# [id number] SP B# [id number] ANSI-Commercial [id number] ANSI-Not a Secondary Insurance [id number] ANSI-Commercial [id number] h965hl92-4pb8-141s-pp37-381q44h63vnq ANSI-Not a Secondary Insurance t048v605-601p-156o-2456-81q51 9fo8tu9 l870z155-582g-343x-9224-72e889eq9ay9 ANSI-Not a Secondary Insurance [id number]-k268-24g7-w676-51801 9wpq5w9 06h77c4y-y966-78n1-h968-594846oia2p7 ANSI-Commercial [id number]-[id number] [id number]-[id number] ANSI-Commercial n11lgmu8-3m7v-5zi0-h639-925qkcg0b99q d90ldtz9-5z3j-4mm6-g515-786qqpn4t53i ANSI-Not a Secondary Insurance qt76j2x5-4i77-6945-2508-c690w 78z3cx7 nw69j0s7-6e63-8653-5605-z165b80o0se1 ANSI-Commercial 18t84zt0-8d79-6ltd-0111-i4eqew68id42 81l75vr0-0y75-7kls-1315-h0ulwr66wd41 ANSI-Not a Secondary Insurance 5p94b414-06m4-96ok-uy31-ru4m9 4880p4k [id number]-me86-zv9r83547m8p ANSI-Commercial [id number]-o88y-87s4-2ep7-41ga4l17398a 7u857y35-i02l-53e0-4ag7-45ef0f03103e ANSI-Not a Secondary Insurance 05d4lvc0-60u7-891c-l460-6q8o8 quk1s6f 18t2gib6-17f2-538c-i476-5z9f5ptk4v9d ANSI-Not a Secondary Insurance 004ce314-y680-878c-m91w-5n42k pwra2v4 182rh851-z775-522u-i20e-5i50sgkhg9g2 ANSI-Commercial 7h7794xb-qzu4-8603-zz53-q1y1b0fk9052 0n4341hz-ydl7-1141-eb01-r7n4r6le4358 [facility] [place]- PPO [address] [id number] SP [id number] ANSI-Not a Secondary Insurance 516092rx-jmm1-850f-pp23-ips58 89y862b 409541st-qsy0-226n-gp27-vnb4802n935b ANSI-Commercial 714uyo29-mcm9-9gy8-6vvj-16c8x4861ewh 292anl11-uef6-7sv6-1xbf-23f6n1732ehw ANSI-Not a Secondary Insurance v59d33o0-9p29-64z9-3zn8-j90q0 n7mq5a9 z99s20z5-0j37-00n7-4xp3-p45f9i4ic2c2 ANSI-Commercial 50993lvu-4550-5px6-7ib0-2jz2n7530n91 81239icz-4705-3du9-7lc3-4au8o6482q09 ANSI-Commercial 6e89y5c0-137p-4865-c9q6-j98h68f58i0s 1i20q2u0-030l-7458-j3j2-x41n26l28b2w ANSI-Not a Secondary Insurance lv7e3u7t-5183-1y8k-03r8-7pbji 98g2801 gd6j4q6a-0505-9v0z-96q5-2yplz42d0601 ANSI-Commercial j5i02i85-j4m7-469s-ts4c-04ix968881r4 l5q89r79-q6n5-344g-yx7q-21mw184999n2 ANSI-Not a Secondary Insurance 61f0pmh4-gc33-6671-x394-81x8f 4io46d3 99k3gtt3-dr89-5650-n483-85t7c0ir11k6 ANSI-Not a Secondary Insurance z9592646-z921-42j3-0dk4-ur4i9 n90l840 b1499422-o094-94k9-5dp7-as9y9y45f225 ANSI-Commercial 3fg2c1c7-575s-9g75-e1lg-72j2p6465i12 7hw9o3t8-557f-6j43-v2ci-13x8d8238o92 ANSI-Not a Secondary Insurance 1nhbt01u-k7a7-775t-b2m0-nuy1t 846l5os 5qqts10l-e9z7-700x-n8e6-cdv6x142j9en ANSI-Commercial 71ul4hdc-27x3-7603-5433-m52ras2bq511 76ol8ect-11y3-1947-5666-r65ata1fb582 ANSI-Not a Secondary Insurance o66d59vi-s43w-1tho-8g97-s3470 d5u6ce9 t36w14oc-b92r-3xur-6z60-n9045f1f4lb0 ANSI-Commercial 8j97o6wn-7a21-1639-y846-0v9051f7iw16 8v90k9bt-0i15-5916-u421-5w9721o9jo63 ANSI-Commercial s94ex732-3i6o-420q-s0k8-7f668u380z07 u74jo400-3r0t-352q-a4f5-1r060p282q05 ANSI-Not a Secondary Insurance 7fmxtn1u-k234-057w-h1f5-dq41s 9e0v4d8 9dmzyg3n-a761-714f-z7s0-lt70p6n2x2n8 ANSI-Not a Secondary Insurance en8ki929-u7l1-2039-q2q1-46598 us7c23p jf1bt738-x0s3-5130-i7d2-97947ql5r22w ANSI-Commercial 2484v9v2-43am-4223-4e2n-01tf553km4m6 8885f4d0-12xg-0325-3l5m-61md334vf9v2 ANSI-Commercial 718j8o58-qp68-40p8-pm8l-1ya0svdz6pg3 041d9y73-gz04-49f5-xp7k-4le0iizs1jd3 ANSI-Not a Secondary Insurance 985333z2-t0v6-2ekb-e52p-ac5b9 8183y5x 066008d0-h6t3-8erk-o58t-dj5s97026s0k ANSI-Commercial 7h8h1do3-302v-7f44-4719-964r781p23c7 7o4f9uj9-603j-9h28-7721-416b352j37t1 ANSI-Not a Secondary Insurance f120770q-0f92-9i63-78w3-2jwd4 8g71771 p379852n-0r65-1z47-51s5-7znx74l81841 ANSI-Not a Secondary Insurance rx1p3dug-6z3v-93qj-v3x6-k30e9 mu778t5 zo0n3hng-0a7i-28ym-n6o2-d47k5cl759l0 ANSI-Commercial -q6c5-31i6-1faa-l11o137w18w5 qamnd708-s3m7-94a4-4euo-s46j308y20e4 ANSI-Commercial 564893u2-61l5-5pl7-0830-341o00ks5s1f 142437a4-48b9-2qq3-8483-274w31bk5j7u ANSI-Not a Secondary Insurance 329u4j7m-0j79-3630-114b-k381t vy5xyi5 110k6q7o-6p48-5289-021y-w453kqp7rzi9 ANSI-Not a Secondary Insurance 201g500w-27bz-4wwz-8a9j-0l428 z3j07f4 647h295j-75kf-1sve-6x9f-6n415w1o02l7 ANSI-Commercial z0ce7998-79g8-81w2-57o0-6h05101wsh50 m8oj6911-07t3-55t9-96b7-3e04229hut30 ANSI-Commercial k089924g-01pm-4613-0n80-02yp0l1c39eb w390078e-06qv-1247-6g35-77os7r9f22wl ANSI-Not a Secondary Insurance 6t5y8167-s2x7-8hm7-s78p-7mk33 0oj9k86 5c9u4365-q6f0-6bp6-s37q-4kk705lj8b69 ANSI-Commercial 044w08j8-9hzi-50s4-w57u-3nfz4198f298 052v21r2-0kwh-66l3-c11n-1uwd0686m892 ANSI-Not a Secondary Insurance l4w1743h-5zy8-026h-5xg9-14vuz 2a63kpj d1h2118d-5nf4-741s-5rs6-80vnh3y16egz ANSI-Commercial 7ycl835k-s609-76k0-g360-11k210738062 5rnk336u-g311-20m7-e654-13g308612590 ANSI-Not a Secondary Insurance 3j85zr91-n613-0769-7690-176m9 859r5y3 0l22vh51-g756-7669-4919-769a6626a0k3 ANSI-Commercial 23ne7js9-4h58-8ht4-1812-6gtx2f0028jb 42xs5xu5-8h54-1is8-1022-2qnm6t4078rz ANSI-Not a Secondary Insurance 96vu9693-24e6-41yg-l446-o675c g1122q0 95zi7485-62y6-76mh-p957-u688ld9724r6 ANSI-Commercial w3q29713-3oc1-0469-3y75-2rm32660g51o e6b33516-3va1-5079-2f21-2vh58861x49j ANSI-Not a Secondary Insurance w625a554-wh15-2rrd-703g-0g847 wiz6y0x r428u489-dy01-5iis-133e-8r245xpj6y5p ANSI-Commercial 7im2ln32-b4c6-10mv-h80y-76t3957gl7qt 8pj8sj90-t7o4-17pi-l18b-58b8149zh0an ANSI-Not a Secondary Insurance 8m35f4mb-1d85-7y39-99a4-n98k3 0otel61 8m14z4cx-4u81-6m68-92p9-q74g69bhkb81 ANSI-Not a Secondary Insurance 0kuqk3m2-3v09-6wf9-vx6p-298o8 624k1b4 6kcoi9q4-2i08-2px1-wk2k-817a3385y8y9 ANSI-Commercial h618h5iv-89i5-567n-8343-g6ni9m5wo1j1 z043w4wh-91r7-143y-0628-w4dp0j5mv3m4 ANSI-Commercial o8x8z731-6556-52s9-89va-6g23r9sv448b m8t9s823-5390-27h6-97uk-8q45r1cd679h ANSI-Not a Secondary Insurance 1123c143-9368-0d85-7ihx-f2w26 w1506tc 6529c277-2815-9k89-4ajb-y9g05a7145bs ANSI-Commercial 53696842-v161-2694-bs80-utt6h6444299 21967314-s066-9623-la66-vew1o3586512 ANSI-Not a Secondary Insurance 78n449fi-z661-92bx-u6dd-1tz18 1feaaac 82l390rt-p982-62qi-a5mx-5ni175rxzupk ANSI-Not a Secondary Insurance 73m76u21-d9rx-0895-6rj2-6305b 19686k3 80x24t52-v1gr-6025-9cu5-9200m71679r2 ANSI-Commercial 77f5e4f1-169z-4i66-27lf-996jze9dv013 34y0u8g2-940r-7b59-67sx-114hwk5ik866 ANSI-Not a Secondary Insurance 75no3egn-up63-8987-lc4t-1o2c6 7m0f08i 55qp1mjq-kq98-1363-qd9b-9b7p85t2g38l ANSI-Commercial 5r0n5ut8-54m4-10lk-rd04-657354xq2x9y 7p9m4ic7-03g9-09vw-kv60-293100tq9i6q ANSI-Commercial tvc95737-nq85-7v07-2637-3t03taoaxr86 url78407-lk79-8d36-6331-5j69lnvckv16 ANSI-Not a Secondary Insurance g01d8xm3-4b3z-14e3-q3ko-gsv45 393213m o75m4xl4-2x8b-73k3-q5yx-adg48226857a ANSI-Not a Secondary Insurance ql4713wv-13m7-5w02-7qxq-19666 3277531 bb5058fr-05n8-8o75-6bmo-634937089504 ANSI-Commercial u6j8y598-2m19-6252-x945-8c55e2i624un u9f4v640-4l73-8314-o278-3r83z4w818bc ANSI-Not a Secondary Insurance 0c0zy8l8-4234-4098-346z-805es a31938t 8l3ea0l5-5102-6810-113b-668bjm97800b ANSI-Commercial 296d782r-0903-0897-370e-38m512saj4y6 884b569u-3914-4827-386i-52d227dvm4e5 ANSI-Not a Secondary Insurance 80885523-o93t-0dg2-nf6z-5t32b 6r51zh3 81888400-h88q-6zf9-nn7p-3u23e7z77gp1 ANSI-Commercial s622g175-r8t1-7wl0-00p0-7wf59i547pi7 k713h252-j4m1-9dc6-27t6-8qe52h380bo2 ANSI-Not a Secondary Insurance m13z9r3s-39i2-416h-a1s3-21627 z59aa4m r87s5d3c-62f3-763g-w8a2-56548u22wj6w ANSI-Commercial 5d2ko6o5-j6j6-2412-rj56-tg009274q9jm 3f8sn7l8-t5c7-1279-ip77-ra169869g9wi ANSI-Commercial 5fco775l-g0b6-64wh-hp83-m9ceguzl8561 5ljl209m-a2j0-22oe-an91-o0gqfuvk4112 ANSI-Not a Secondary Insurance 74249435-a849-6360-qby7-4f98n fp416i7 47916758-r759-4917-fjs7-2b12ozn692u9 ANSI-Not a Secondary Insurance 2130hrv5-dugd-41u6-6882-u2vs3 9h735x9 6458uyl3-bwuw-30c3-5026-p1eo14e482e7 ANSI-Commercial w7ff79n3-112w-74e9-w7g0-571060346502 q4kf22z5-220x-34c1-w8l5-995549305749 ANSI-Not a Secondary Insurance 0746sbs7-0vpd-21w1-6z2n-5z8r1 86q5891 3619lzz1-9lir-06g4-0b1i-4k8p461l7348 ANSI-Commercial qv4efpd9-8wlk-84cl-pxiw-120h3hs9iq59 ci8asti5-9zze-10vl-pcqi-463e3aj4xa65 ANSI-Commercial w11y3155-16s0-733e-42iv-92w2mk3a1236 d72n9230-89r9-992l-37hm-51q2oj4s5582 ANSI-Not a Secondary Insurance i74h0k5i-bdir-60sc-8r3u-v7tv2 2m6b463 n27t7c1s-owdo-70sx-3b3c-v9ah42d1u343 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 O [id number] O [id number] ANSI-Not a Secondary Insurance 13af7636-66s7-8s1s-r3z9-0shb0 p457659 25wx2453-55i5-9m5n-j3g3-9llk2g872582 ANSI-Commercial kmp0k423-fyci-0s40-222m-393917350rz0 qak2m124-qppn-4e91-869c-663941606ot2 ANSI-Not a Secondary Insurance 97s6if6r-2x57-327b-1uv3-3yw9l 9ybk761 05j7gg5z-7o50-489w-2or9-7hb2c5xcq542 ANSI-Commercial 337gl0a4-b535-9979-515s-90647x1yir54 868zn9g7-k649-7749-369w-17467l2cvg40 ANSI-Commercial y898k125-a7as-04o8-m11m-d5p59683udc1 a950o244-q1zg-74x5-n25r-p7y41813ktr7 ANSI-Not a Secondary Insurance ea2s3cx5-u458-8994-8mp8-22v18 82g0lvy jo1k0kw9-v587-5855-5lu0-13t3103z0xvo ANSI-Commercial a547x89m-3642-0e67-j1i4-6vm5kb9278y6 s948t56a-5110-7t10-g3f3-2kq0wc9921j7 ANSI-Not a Secondary Insurance 49n6wi4c-f4y7-067d-7r9v-04ta1 5794257 40y4sw8k-q9q3-397d-0j9u-14mi54593194 ANSI-Commercial 880ty855-4760-5360-yc8s-a71800k5gx63 492ud911-1110-7103-ca9o-m03602e3pl62 ANSI-Not a Secondary Insurance 17148zch-6tca-182v-44u8-4w62b ktl9me0 85091eft-9mvl-040f-90p1-2p66wyqd3zs0 ANSI-Commercial 4a23s65l-o10b-9jr7-651n-9b735o9m2706 6t39n37j-s51u-1ti2-541u-5g524q8t3942 ANSI-Not a Secondary Insurance 133n5134-8x03-63mt-q0vq-62z83 489ebec 949w3534-3b90-16ke-t9ob-09a57539ibmh ANSI-Not a Secondary Insurance 82306602-g5l4-5nn8-rz0z-0s881 u9l491i 32221782-p4f4-9ve5-nh6q-0o089a0o340k ANSI-Commercial 7huc51cc-2bh9-388e-cw98-714662m9n0kg 0igx91kr-2we2-815a-ir15-657502g3g2ke ANSI-Not a Secondary Insurance 1g40r145-nv67-344k-8i56-30lwe 7f97l5s 3e98x504-zb68-256k-1v82-34tss7i62p6d ANSI-Commercial qhv0615v-o465-22mc-6dr4-h62qikoq3w5k yng4288e-s988-33bj-0ti3-f63jrzod0h9a ANSI-Commercial 07yl2854-8e5o-5oyc-zx3v-u5y1e2x8l5aw 71zm5618-2a8l-3mtx-bg3z-q8w4e5x8g2mx ANSI-Not a Secondary Insurance 7p7bd912-1w9l-191q-4r28-7w0o7 5h73198 8u3gj082-2t6x-655d-7a81-5x5j18x92087 ANSI-Commercial 70ow8p50-4872-0wa0-4n9v-7347m73dr527 00if2w78-7731-6wn4-1p0o-3965d01mm187 ANSI-Not a Secondary Insurance j0kj39e2-agi9-3o7z-l812-wt6tx 3bmo9be t5co21z5-exe4-7t6k-j118-an3he3khs9gr ANSI-Commercial 7d2r78fu-9bdi-468k-an7k-19q0612d4p4p 2z2q40xa-1fcp-233v-wg2h-68r9158v9u1w ANSI-Not a Secondary Insurance 9044733h-633j-0249-9o75-zq6b8 800tc06 6591906t-137b-3652-3p67-jg9a5600vq68 ANSI-Commercial dgr30v23-3m1b-36y3-l187-syfjcdg24e72 wom06x50-4v3w-85b6-d087-ybglllm61l02 ANSI-Not a Secondary Insurance 4i033klg-1l94-7oce-m801-3y158 946q908 1j988krw-8z14-0lfh-u200-2g738810j884 ANSI-Not a Secondary Insurance 9s9kxgfm-6vyy-1s3t-f6t2-u72nc 7310160 1j6cebeo-3djh-1y5y-d6w6-p63ya1281949 ANSI-Commercial 903e1j3m-080v-8q17-u96s-5976389n00x5 263r8m1s-931h-3a19-q71z-8552575w57w1 ANSI-Not a Secondary Insurance 3g8v1l5u-c912-93mg-07d1-8441t 46vkw15 7y1q5e4w-c324-13xa-63z1-0384k19yqt67 ANSI-Commercial 7732444q-d70q-5239-2olp-4906f9tk9y6v 2677238w-a29m-4592-2hct-8463o7hw1x1b ANSI-Commercial zk3q989v-4up8-2kt8-9w87-m5o54sv916l3 am7d400j-3fb6-8np1-4w80-h6a08py569p8 ANSI-Not a Secondary Insurance 14h80ym8-8d8f-6gc7-1j87-e5i0n rnwj657 64w56ro7-7d8u-8qq7-7b99-j3k7hstek975 ANSI-Not a Secondary Insurance 1919of63-34n5-486s-8960-1s18l f96561t 6868wl22-75l1-982a-8005-9l11gb13913f ANSI-Commercial 26r9e3n2-1293-1s48-jv58-cl22f5317292 04z2b9j4-1355-5h24-st96-je15c3347223 ANSI-Not a Secondary Insurance 465vc98r-54su-3m5z-5g94-9i69y 6t8r1j0 644qg45v-92gh-4j7k-2z53-8f04y7t0i8t0 ANSI-Commercial 4n66104j-4135-1607-j304-k4g1kjnh3aa1 2f71795q-8937-3872-u782-x3x5axjq6fx9 [facility] B [id number] S MMF [id number] ANSI-Commercial 70ejp96a-1372-8057-2582-5yq7oq0m0031 08iiy88p-9745-1351-8836-5cr6un3o5647 ANSI-Not a Secondary Insurance p4230poe-5n85-5572-5dw7-q422j 3ige09v t9202sel-4m67-7743-3cj0-d794t4gww89h ANSI-Not a Secondary Insurance 47w69814-04g2-0488-84u0-05614 v3tgix4 28p26278-69u6-0282-62o1-50248c1llxi1 ANSI-Commercial vk34w6ba-434t-70v0-35d1-e70hpgdfs55w wq66l5yw-175i-56g0-90a1-y49ihydng78q ANSI-Not a Secondary Insurance kcg3163u-5a03-1211-z7w8-n4421 2s88iyw cwi9051q-6s96-7866-s5o6-i20189y70nlf ANSI-Commercial 906z721p-5y7t-910c-vf1l-07i87ok22kq3 170y672i-1m8f-559a-pq5e-47j66mz62wz0 ANSI-Not a Secondary Insurance g643gfea-cc0k-005t-7j20-98t1c 4jl21i7 w871jlou-rw3p-050k-3k88-09j7l3ef15j4 ANSI-Commercial h00xl8a7-vess-484o-lqz2-h824869509n3 t00jr6j3-uclt-190v-ovz0-m752203935z3 ANSI-Not a Secondary Insurance w856swv2-58nk-85k7-pt9b-87971 8dest5z d467shk6-43vk-14g2-ak4t-827737ewoy4e ANSI-Commercial gy4es43l-6mp3-7687-r489-6fji1674292r wx4hn38m-4yi2-9343-v644-3joh9722614a ANSI-Commercial 211086q5-7m67-28oq-1p14-dd56r820i7h5 745752e8-6m34-22fh-2w16-mr21y646c2a3 ANSI-Not a Secondary Insurance 842h24rz-1j00-454x-6h3r-29459 3291b7q 339m70yz-6f02-222m-0g0w-117251338j6y ANSI-Not a Secondary Insurance zd326372-x586-90hn-v340-259it 18t416s fg651921-s552-15up-b821-715zj52b166m ANSI-Commercial gyz17z96-8234-55e6-pr39-gyg62z165122 xbh86m45-8692-50d5-ee77-sbn26o785118 ANSI-Not a Secondary Insurance i09t24ef-g26a-432c-945h-8t995 p0k9092 b17v22dk-o04y-079q-024h-2k547p0a5517 ANSI-Commercial aen96au1-ig72-1212-21sm-076t53j545p6 lak09iq3-ig08-3488-99yt-897s84j779d2 ANSI-Commercial no6z6ukb-i7fs-6197-90f4-og6n2n679q5z zx0o6zbi-z2rz-8615-79e8-xo6x9h801u6t ANSI-Not a Secondary Insurance 464d3472-374a-2087-a9v3-982yd 0v8h5y1 310g2503-800y-9500-v5x2-900sp8f5q2k8 TRAVELERS- [id number] SP [id number] ANSI-Not a Secondary Insurance w9o831z1-ms7d-6s78-9574-03f4u 57c948t c0g933r5-hc9x-3q29-9973-81i0g41m928z ANSI-Commercial 4222960o-226n-45hl-ram1-oam17p1n1a96 1008270w-435x-24al-nyv9-mhf23h7o8k47 ANSI-Commercial aeu5k425-66a7-9iyy-n5cm-t8v88r1030pq emz1t118-94w4-9zuo-b7hw-x8j40h3861hd ANSI-Not a Secondary Insurance q9w64893-1s92-190h-92t6-7609q g651xz6 t6d46307-0l60-066n-92r7-6456ux065nl3 ANSI-Not a Secondary Insurance 24i89417-8785-313z-7011-1z27v 86w211i 59e15970-4790-884w-0894-4u28s09l296n ANSI-Commercial 2rrft340-u180-9683-4703-2884319nd970 7vzxi217-l282-8569-8876-3704693jb718 OTHER WORKERS COMPENSATI O WCB#[id number] S WCB#[id number] ANSI-Not a Secondary Insurance u897i608-h1c3-9o24-ux96-41715 0756ebf k497l004-o9h7-0k29-do09-077223762rbj ANSI-Commercial 55565m17-e5v8-6u03-267a-031558o2101y 99702z54-f6c7-1b49-750k-055138t9104u ANSI-Commercial 06118762-s4ck-09x6-10gc-xe1v1xro6175 64116663-n6sj-51s0-32ij-cv6f4oaw9892 ANSI-Not a Secondary Insurance 63m4ps32-8k2o-0423-2165-9922k 93ve5b3 94o4zv08-0t6m-6050-0343-8248a90bs0y5 OTHER WORKERS COMPENSATI O WCB#[id number] S WCB#[id number] TRAVELERS-WC WCB# [id number] SP WCB # [id number] 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 [id number] BS [place] Medigap Part B [id number] Self [id number] [employer] Insurance ([employer]) Workers Compensation [id number] Self [id number] 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 [id number] SP [id number] 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 [id number] SP [id number] [place] P[place] 302/307 [id number] SP [id number] [place] 302/307 [id number] SP [id number] [place] 302/307 [id number] SP [id number] BS Of [place] [facility] [place] [place] Self [employer] BCBS B [id number] S VYS [id number] BCBS [place] 304/804 [id number] SP [id number] [employer] H [id number] Self [id number] BLUE CROSS BLUE SHIELD-CLINIC [id number] 18 [id number] [employer]BS [place] 304/804 [id number] SP [id number] SELF PAY 5 UNAVAILABLE 1 UNAVAILA BLE BLUE CROSS BLUE SHIELD-O/P [id number] 18 [id number] [employer]BS [place] 306/8 P [id number] S [id number] Problems, Conditions, and Diagnoses Code Display Name Description Problem Type Effective Dates Data Source(s) F51.01 [id number] Primary insomnia Problem 01/28/2020 12:00:00 AM EST eCW1 ([facility]) F41.0 [id number] Panic disorder Problem 12/24/2019 12:00:00 A M EST eCW1 ([facility]) F41.9 [id number] Anxiety Problem 12/23/2019 12:00:00 AM ES T eCW1 ([facility]) 25001214 Cervical radiculopathy Cervical radiculopathy Problem 08/26/2019 12:00:00 AM EDT MEDENT ([facility], ) [id number] 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 Problem 08/26/2019 12:00:00 AM EDT MEDENT ([facility], ) [id number] Neck pain Neck pain Problem 08/26/2019 12:00:00 AM ED T MEDENT ([facility], ) [id number] Essential tremor Essential tremor Problem 08/26/2019 12 :00:00 AM EDT MEDENT ([facility], ) R25.1 [id number] Tremor of both hands Problem 08/25/2019 12:0 0:00 AM EDT eCW1 ([facility]) F41.9 27354870 Anxiety Problem 08/04/2019 12:00:00 AM ED T eCW1 ([facility]) M46.1 [id number] Bilateral sacroiliitis Problem 05/28/2019 12:00:00 AM EDT eCW1 ([facility]) M54.5 [id number] Low back pain Problem 05/28/2019 12:00:00 AM EDT eCW1 ([facility]) M54.5 411229853 Low back pain Problem 05/28/2019 12:00:00 AM EDT eCW1 ([facility]) M46.1 [id number] Bilateral sacroiliitis Problem 05/28/2019 12:00:00 AM EDT eCW1 ([facility]) M46.1 60542974 Sacroiliitis Problem 04/21/2019 12:00:00 AM EDT eCW1 ([facility]) E78.00 [id number] Pure hypercholesterolemia Problem 03/26/2019 12:00:00 AM EST eCW1 ([facility]) J44.9 12591856 Chronic obstructive pulmonary di sease, unspecified COPD type Problem 03/26/2019 12:00:00 AM EST eCW1 ([facility]) E78.00 241835002 Pure hypercholesterolemia Problem 03/26/2019 12:00:00 AM EST eCW1 ([facility]) J44.9 37839575 Chronic obstructive pulmonary di sease, unspecified COPD type Problem 03/26/2019 12:00:00 AM EST eCW1 ([facility]) M75.41 Impingement syndrome of right shoulder I mpingement syndrome of right shoulder Diagnosis 04/01/2019 10:41:11 AM EST [facility] 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, 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, right upper limb Diagnosis 04/01/2019 10:41:11 AM [facility] Surgeries/Procedures Procedure Description Date Indications Data Source(s) Immunization: Flublok Quadrivalent (18 years & older) 0.5mL IM (Influenza) 01/15/2020 12:00:00 AM EST eCW1 ([facility]) INJ TRIGGER POINT / MUSCL 06/24/2019 12:00:00 AM EDT eCW1 ([facility]) PHYSICIAN TELEPHONE EVALUATION 11-20 MIN 06/12/2019 12 :00:00 AM EDT eCW1 ([facility]) ESTABILISHED PATIENT [facility] FACILITY CHARGE 020 12:00:00 AM EDT eCW1 ([facility]) SURGERY CASE REQUEST OUTSIDE FACILITY ONLY SURGERY CA SE REQUEST OUTSIDE FACILITY ONLY Routine 04/01/2019 11:37 AM EST Cubital tunnel syndrome on right 04/01/2019 04:37:19 PM EST Cubital tunnel syndrome on right [facility] Cubital tunnel syndrome on right Lumbar/Sacral w/ Imaging 03/25/2019 12:00:00 AM EST eCW1 ([facility]) RADXPS IN END [id number] PXD 03/25/2019 12:00:00 AM ES T eCW1 ([facility]) Results ID Date Data Source Comprehensive Metabolic Profile (CMP) 12/18/2019 08:27:18 AM EST eCW1 ([facility]) Name Value Range Interpretation Code Description Data Abbey rce(s) Supporting Document(s) 92 GLUCOSE, FASTING eCW1 ([facility]) 15 BLOOD UREA NITROGEN eCW1 ([facility]) 1.01 CREATININE FOR GFR eCW1 ([facility]) 102 CHLORIDE LEVEL eCW1 ([facility]) 135 SODIUM LEVEL eCW1 ([facility]) 5.2 POTASSIUM SERUM eCW1 ([facility]) > 60.0 GLOMERULAR FILTRATION RATE eCW 1 ([facility]) 28 CARBON DIOXIDE LEVEL eCW1 ([facility]) 14 ALT/SGPT eCW1 ([facility]) 9 AST/SGOT eCW1 ([facility]) 9.5 CALCIUM LEVEL eCW1 ([facility]) 7.5 TOTAL PROTEIN eCW1 ([facility]) 0.3 BILIRUBIN,TOTAL eCW1 ([facility]) 101 ALKALINE PHOSPHATASE eCW1 ([facility]) 4.3 ALBUMIN eCW1 ([facility]) 1.3 ALBUMIN/GLOBULIN RATIO eCW1 ([facility]) ID Date Data Source [id number] 12/06/2019 10:45:00 AM EDT [facility] Name Value Range Interpretation Code Description Data Abbey rce(s) Supporting Document(s) SARS coronavirus 2 RNA [facility] This lab was ordered by [facility] and reported by [facility]. ID Date Data Source [facility] [place]UORO GUIDE SPINE INJECTION (PAIN) 11/12/2019 05:47:51 AM EDT eCW1 ([facility]) Name Value Range Interpretation Code Description Data Abbey rce(s) Supporting Document(s) [facility] FLUORO GUIDE SPINE IN JECTION (PAIN) eCW1 ([facility]) ID Date Data Source [id number] 11/07/2019 10:00:00 AM EDT [facility] Name Value Range Interpretation Code Description Data Abbey rce(s) Supporting Document(s) SARS coronavirus 2 RNA [facility] This lab was ordered by [facility] and reported by [facility]. ID Date Data Source [id number] 07/11/2019 11:25:00 AM EDT [facility] Name Value Range Interpretation Code Description Data Abbey rce(s) Supporting Document(s) SARS CORONAVIRUS 2 RNA [facility] This lab was ordered by [facility] and reported by [facility]. ID Date Data Source [id number] 04/04/2019 03:33:54 PM [facility] Name Value Range Interpretation Code Description Data Abbey rce(s) Supporting Document(s) Progress Note [facility] [id number] lbm [file] [id number] Procedure Social History Code Duration Value Status Description Data Source(s ) Smoking 02/16/2020 12:00:00 AM EST Current Smoker completed Curre nt Smoker eCW1 ([facility]) Smoking 02/16/2020 12:00:00 AM EST Current Smoker completed Curre nt Smoker eCW1 ([facility]) Smoking 02/16/2020 12:00:00 AM EST Current Smoker completed Curre nt Smoker eCW1 ([facility]) Smoking 01/28/2020 12:00:00 AM EST Current Smoker completed Curre nt Smoker eCW1 ([facility]) Smoking 01/28/2020 12:00:00 AM EST Current Smoker completed Curre nt Smoker eCW1 ([facility]) Smoking 01/28/2020 12:00:00 AM EST Current Smoker completed Curre nt Smoker eCW1 ([facility]) Smoking 01/28/2020 12:00:00 AM EST Current Smoker completed Curre nt Smoker eCW1 ([facility]) Smoking 01/28/2020 12:00:00 AM EST Current Smoker completed Curre nt Smoker eCW1 ([facility]) Smoking 01/28/2020 12:00:00 AM EST Current Smoker completed Curre nt Smoker eCW1 ([facility]) Smoking 01/15/2020 12:00:00 AM EST Current Smoker completed Curre nt Smoker eCW1 ([facility]) Smoking 01/15/2020 12:00:00 AM EST Current Smoker completed Curre nt Smoker eCW1 ([facility]) Smoking 01/15/2020 12:00:00 AM EST Current Smoker completed Curre nt Smoker eCW1 ([facility]) Smoking 01/15/2020 12:00:00 AM EST Current Smoker completed Curre nt Smoker eCW1 ([facility]) Smoking 01/15/2020 12:00:00 AM EST Current Smoker completed Curre nt Smoker eCW1 ([facility]) Smoking 01/15/2020 12:00:00 AM EST Current Smoker completed Curre nt Smoker eCW1 ([facility]) Smoking 01/15/2020 12:00:00 AM EST Current Smoker completed Curre nt Smoker eCW1 ([facility]) Smoking 01/15/2020 12:00:00 AM EST Current Smoker completed Curre nt Smoker eCW1 ([facility]) Smoking 01/15/2020 12:00:00 AM EST Current Smoker completed Curre nt Smoker eCW1 ([facility]) Smoking 01/15/2020 12:00:00 AM EST Current Smoker completed Curre nt Smoker eCW1 ([facility]) Smoking 01/15/2020 12:00:00 AM EST Current Smoker completed Curre nt Smoker eCW1 ([facility]) Smoking 01/15/2020 12:00:00 AM EST Current Smoker completed Curre nt Smoker eCW1 ([facility]) Smoking 01/15/2020 12:00:00 AM EST Current Smoker completed Curre nt Smoker eCW1 ([facility]) Smoking 01/15/2020 12:00:00 AM EST Current Smoker completed Curre nt Smoker eCW1 ([facility]) Smoking 12/24/2019 12:00:00 AM EST Current Smoker completed Curre nt Smoker eCW1 ([facility]) Smoking 12/24/2019 12:00:00 AM EST Current Smoker completed Curre nt Smoker eCW1 ([facility]) Smoking 12/24/2019 12:00:00 AM EST Current Smoker completed Curre nt Smoker eCW1 ([facility]) Smoking 12/24/2019 12:00:00 AM EST Current Smoker completed Curre nt Smoker eCW1 ([facility]) Smoking 12/24/2019 12:00:00 AM EST Current Smoker completed Curre nt Smoker eCW1 ([facility]) Smoking 12/24/2019 12:00:00 AM EST Current Smoker completed Curre nt Smoker eCW1 ([facility]) Smoking 12/24/2019 12:00:00 AM EST Current Smoker completed Curre nt Smoker eCW1 ([facility]) Smoking 12/24/2019 12:00:00 AM EST Current Smoker completed Curre nt Smoker eCW1 ([facility]) Smoking 12/24/2019 12:00:00 AM EST Current Smoker completed Curre nt Smoker eCW1 ([facility]) Smoking 12/24/2019 12:00:00 AM EST Current Smoker completed Curre nt Smoker eCW1 ([facility]) Smoking 12/24/2019 12:00:00 AM EST Current Smoker completed Curre nt Smoker eCW1 ([facility]) Smoking 12/24/2019 12:00:00 AM EST Current Smoker completed Curre nt Smoker eCW1 ([facility]) Smoking 12/24/2019 12:00:00 AM EST Current Smoker completed Curre nt Smoker eCW1 ([facility]) Smoking 12/24/2019 12:00:00 AM EST Current Smoker completed Curre nt Smoker eCW1 ([facility]) Smoking 12/24/2019 12:00:00 AM EST Current Smoker completed Curre nt Smoker eCW1 ([facility]) Smoking 12/24/2019 12:00:00 AM EST Current Smoker completed Curre nt Smoker eCW1 ([facility]) Smoking 12/24/2019 12:00:00 AM EST Current Smoker completed Curre nt Smoker eCW1 ([facility]) Smoking 12/24/2019 12:00:00 AM EST Current Smoker completed Curre nt Smoker eCW1 ([facility]) Smoking 12/24/2019 12:00:00 AM EST Current Smoker completed Curre nt Smoker eCW1 ([facility]) Smoking 12/24/2019 12:00:00 AM EST Current Smoker completed Curre nt Smoker eCW1 ([facility]) Smoking 12/24/2019 12:00:00 AM EST Current Smoker completed Curre nt Smoker eCW1 ([facility]) Smoking 12/24/2019 12:00:00 AM EST Current Smoker completed Curre nt Smoker eCW1 ([facility]) Smoking 12/24/2019 12:00:00 AM EST Current Smoker completed Curre nt Smoker eCW1 ([facility]) Smoking 12/24/2019 12:00:00 AM EST Current Smoker completed Curre nt Smoker eCW1 ([facility]) Smoking 12/24/2019 12:00:00 AM EST Current Smoker completed Curre nt Smoker eCW1 ([facility]) Smoking 12/22/2019 12:00:00 AM EST Current Smoker completed Curre nt Smoker eCW1 ([facility]) Smoking 12/22/2019 12:00:00 AM EST Current Smoker completed Curre nt Smoker eCW1 ([facility]) Smoking 12/22/2019 12:00:00 AM EST Current Smoker completed Curre nt Smoker eCW1 ([facility]) Smoking 12/18/2019 12:00:00 AM EST Current Smoker completed Curre nt Smoker eCW1 ([facility]) Smoking 12/18/2019 12:00:00 AM EST Current Smoker completed Curre nt Smoker eCW1 ([facility]) Smoking 12/18/2019 12:00:00 AM EST Current Smoker completed Curre nt Smoker eCW1 ([facility]) Smoking 12/18/2019 12:00:00 AM EST Current Smoker completed Curre nt Smoker eCW1 ([facility]) Smoking 12/18/2019 12:00:00 AM EST Current Smoker completed Curre nt Smoker eCW1 ([facility]) Smoking 12/18/2019 12:00:00 AM EST Current Smoker completed Curre nt Smoker eCW1 ([facility]) Smoking 12/11/2019 12:00:00 AM EDT Current Smoker completed Curre nt Smoker eCW1 ([facility]) Smoking 12/11/2019 12:00:00 AM EDT Current Smoker completed Curre nt Smoker eCW1 ([facility]) Smoking 12/11/2019 12:00:00 AM EDT Current Smoker completed Curre nt Smoker eCW1 ([facility]) Smoking 12/11/2019 12:00:00 AM EDT Current Smoker completed Curre nt Smoker eCW1 ([facility]) Smoking 12/09/2019 12:00:00 AM EDT Current Smoker completed Curre nt Smoker eCW1 ([facility]) Smoking 11/30/2019 12:00:00 AM EDT Current Smoker completed Curre nt Smoker eCW1 ([facility]) Smoking 11/30/2019 12:00:00 AM EDT Current Smoker completed Curre nt Smoker eCW1 ([facility]) Smoking 11/30/2019 12:00:00 AM EDT Current Smoker completed Curre nt Smoker eCW1 ([facility]) Smoking 11/30/2019 12:00:00 AM EDT Current Smoker completed Curre nt Smoker eCW1 ([facility]) Smoking 11/30/2019 12:00:00 AM EDT Current Smoker completed Curre nt Smoker eCW1 ([facility]) Smoking 11/30/2019 12:00:00 AM EDT Current Smoker completed Curre nt Smoker eCW1 ([facility]) Smoking 11/24/2019 12:00:00 AM EDT Current Smoker completed Curre nt Smoker eCW1 ([facility]) Smoking 11/12/2019 12:00:00 AM EDT Current Smoker completed Curre nt Smoker eCW1 ([facility]) Smoking 11/12/2019 12:00:00 AM EDT Current Smoker completed Curre nt Smoker eCW1 ([facility]) Smoking 09/04/2019 12:00:00 AM EDT Current Smoker completed Curre nt Smoker eCW1 ([facility]) Smoking 09/04/2019 12:00:00 AM EDT Current Smoker completed Curre nt Smoker eCW1 ([facility]) Smoking 09/04/2019 12:00:00 AM EDT Current Smoker completed Curre nt Smoker eCW1 ([facility]) Smoking 09/04/2019 12:00:00 AM EDT Current Smoker completed Curre nt Smoker eCW1 ([facility]) Smoking 09/04/2019 12:00:00 AM EDT Current Smoker completed Curre nt Smoker eCW1 ([facility]) Smoking 09/04/2019 12:00:00 AM EDT Current Smoker completed Curre nt Smoker eCW1 ([facility]) Smoking 09/04/2019 12:00:00 AM EDT Current Smoker completed Curre nt Smoker eCW1 ([facility]) Smoking 08/31/2019 12:00:00 AM EDT Current Smoker completed Curre nt Smoker eCW1 ([facility]) Smoking 08/31/2019 12:00:00 AM EDT Current Smoker completed Curre nt Smoker eCW1 ([facility]) Smoking 08/31/2019 12:00:00 AM EDT Current Smoker completed Curre nt Smoker eCW1 ([facility]) Smoking 08/25/2019 12:00:00 AM EDT Current Smoker completed Curre nt Smoker eCW1 ([facility]) Smoking 08/25/2019 12:00:00 AM EDT Current Smoker completed Curre nt Smoker eCW1 ([facility]) Smoking 08/25/2019 12:00:00 AM EDT Current Smoker completed Curre nt Smoker eCW1 ([facility]) Smoking 08/25/2019 12:00:00 AM EDT Current Smoker completed Curre nt Smoker eCW1 ([facility]) Smoking 08/25/2019 12:00:00 AM EDT Current Smoker completed Curre nt Smoker eCW1 ([facility]) Smoking 08/04/2019 12:00:00 AM EDT Current Smoker completed Curre nt Smoker eCW1 ([facility]) Smoking 07/13/2019 12:00:00 AM EDT Current Smoker completed Curre nt Smoker eCW1 ([facility]) Smoking 07/13/2019 12:00:00 AM EDT Current Smoker completed Curre nt Smoker eCW1 ([facility]) Smoking 07/13/2019 12:00:00 AM EDT Current Smoker completed Curre nt Smoker eCW1 ([facility]) Smoking 07/13/2019 12:00:00 AM EDT Current Smoker completed Curre nt Smoker eCW1 ([facility]) Alcohol intake 04/04/2019 12:00:00 AM EST Current non-d alma of alcohol (finding) completed Current non-drinker of alcohol (finding) [facility] Cigarette pack-years 04/04/2019 12:00:00 AM EST UNK completed [facility] Cigarettes smoked current (pack per day) - Reported 04/04/19 12:00:00 AM EST UNK completed [facility] Smoking 04/04/2019 12:00:00 AM EST Current every day smoker co mpleted Current every day smoker [facility] Vital Signs ID Date Data Source UNK Name Value Range Interpretation Code Description Data Source(s) Diastolic blood pressure 84 mm[Hg] 84 mm[Hg] eCW1 ([facility]) Systolic blood pressure 130 mm[Hg] 130 mm[Hg] e CW1 ([facility]) Body temperature 97.5 [degF] 97.5 [degF] eCW1 ( [facility]) Respiratory rate 18 /min 18 /min eCW1 ([facility]) Heart rate 102 /min 102 /min eCW1 ([facility]) Body mass index (BMI) [Ratio] 23.03 kg/m2 23.03 kg/m2 eCW1 ([facility]) Body height 69 [in_i] 69 [in_i] eCW1 ([facility]) Body weight 156 [lb_av] 156 [lb_av] eCW1 ([facility]) Diastolic blood pressure 78 mm[Hg] 78 mm[Hg] eCW1 ([facility]) Systolic blood pressure 132 mm[Hg] 132 mm[Hg] e CW1 ([facility]) Body temperature 98.0 [degF] 98.0 [degF] eCW1 ( [facility]) Respiratory rate 18 /min 18 /min eCW1 ([facility]) Heart rate 99 /min 99 /min eCW1 ([facility]) Body mass index (BMI) [Ratio] 23.33 kg/m2 23.33 kg/m2 eCW1 ([facility]) Body height 69 [in_i] 69 [in_i] eCW1 ([facility]) Body weight 158 [lb_av] 158 [lb_av] eCW1 ([facility]) Diastolic blood pressure 90 mm[Hg] 90 mm[Hg] eCW1 ([facility]) Systolic blood pressure 140 mm[Hg] 140 mm[Hg] e CW1 ([facility]) Body temperature [degF] eCW1 ([facility]) Respiratory rate 18 /min 18 /min eCW1 ([facility]) Heart rate 112 /min 112 /min eCW1 ([facility]) Body mass index (BMI) [Ratio] 23.18 kg/m2 23.18 kg/m2 eCW1 ([facility]) Body height 69 [in_i] 69 [in_i] eCW1 ([facility]) Body weight 157 [lb_av] 157 [lb_av] eCW1 ([facility]) Diastolic blood pressure 80 mm[Hg] 80 mm[Hg] eCW1 ([facility]) Systolic blood pressure 130 mm[Hg] 130 mm[Hg] e CW1 ([facility]) Body temperature 98.2 [degF] 98.2 [degF] eCW1 ( [facility]) Respiratory rate 18 /min 18 /min eCW1 ([facility]) Heart rate 104 /min 104 /min eCW1 ([facility]) Body mass index (BMI) [Ratio] 23.45 kg/m2 23.45 kg/m2 eCW1 ([facility]) Body height 69 [in_i] 69 [in_i] eCW1 ([facility]) Body weight 158.8 [lb_av] 158.8 [lb_av] eCW1 ([facility]) Diastolic blood pressure 100 mm[Hg] 100 mm[Hg] eCW1 ([facility]) Systolic blood pressure 150 mm[Hg] 150 mm[Hg] e CW1 ([facility]) Body temperature 98.2 [degF] 98.2 [degF] eCW1 ( [facility]) Respiratory rate 18 /min 18 /min eCW1 ([facility]) Heart rate 92 /min 92 /min eCW1 ([facility]) Body mass index (BMI) [Ratio] 23.74 kg/m2 23.74 kg/m2 W1 ([facility]) Body height 69 [in_i] 69 [in_i] eCW1 ([facility]) Body weight 160.8 [lb_av] 160.8 [lb_av] eCW1 ([facility]) Diastolic blood pressure 98 mm[Hg] 98 mm[Hg] eCW1 ([facility]) Systolic blood pressure 146 mm[Hg] 146 mm[Hg] e CW1 ([facility]) Body temperature 97.6 [degF] 97.6 [degF] eCW1 ( [facility]) Respiratory rate 18 /min 18 /min eCW1 ([facility]) Heart rate 75 /min 75 /min eCW1 ([facility]) Body mass index (BMI) [Ratio] 23.86 kg/m2 23.86 kg/m2 eCW1 ([facility]) Body height 69 [in_i] 69 [in_i] eCW1 ([facility]) Body weight 161.6 [lb_av] 161.6 [lb_av] eCW1 ([facility]) Diastolic blood pressure 93 mm[Hg] 93 mm[Hg] eCW1 ([facility]) Systolic blood pressure 136 mm[Hg] 136 mm[Hg] e CW1 ([facility]) Body temperature 98.6 [degF] 98.6 [degF] eCW1 ( [facility]) Respiratory rate 16 /min 16 /min eCW1 ([facility]) Heart rate 69 /min 69 /min eCW1 ([facility]) Body mass index (BMI) [Ratio] 23.63 kg/m2 23.63 kg/m2 eCW1 ([facility]) Body height 69 [in_i] 69 [in_i] eCW1 ([facility]) Body weight 160 [lb_av] 160 [lb_av] eCW1 ([facility]) Diastolic blood pressure 96 mm[Hg] 96 mm[Hg] eCW1 ([facility]) Systolic blood pressure 148 mm[Hg] 148 mm[Hg] e CW1 ([facility]) Body temperature 98.3 [degF] 98.3 [degF] eCW1 ( [facility]) Respiratory rate 18 /min 18 /min eCW1 ([facility]) Heart rate 73 /min 73 /min eCW1 ([facility]) Body mass index (BMI) [Ratio] 23.42 kg/m2 23.42 kg/m2 eCW1 ([facility]) Body height 69 [in_i] 69 [in_i] eCW1 ([facility]) Body weight 158.6 [lb_av] 158.6 [lb_av] eCW1 ([facility]) Diastolic blood pressure 80 mm[Hg] 80 mm[Hg] eCW1 ([facility]) Systolic blood pressure 120 mm[Hg] 120 mm[Hg] e CW1 ([facility]) Body temperature 97.8 [degF] 97.8 [degF] eCW1 ( [facility]) Respiratory rate 18 /min 18 /min eCW1 ([facility]) Heart rate 103 /min 103 /min eCW1 ([facility]) Body mass index (BMI) [Ratio] 24.19 kg/m2 24.19 kg/m2 eCW1 ([facility]) Body height 69 [in_i] 69 [in_i] eCW1 ([facility]) Body weight 163.8 [lb_av] 163.8 [lb_av] eCW1 ([facility]) Diastolic blood pressure 84 mm[Hg] 84 mm[Hg] eCW1 ([facility]) Systolic blood pressure 198 mm[Hg] 198 mm[Hg] e CW1 ([facility]) Body temperature 97.0 [degF] 97.0 [degF] eCW1 ( [facility]) Respiratory rate 18 /min 18 /min eCW1 ([facility]) Heart rate 89 /min 89 /min eCW1 ([facility]) Body mass index (BMI) [Ratio] 24.25 kg/m2 24.25 kg/m2 W1 ([facility]) Body height 69 [in_i] 69 [in_i] eCW1 ([facility]) Body weight 164.2 [lb_av] 164.2 [lb_av] eCW1 ([facility]) Body mass index (BMI) [Ratio] 24.9 kg/m2 24.9 k g/m2 MEDENT ([facility] ) Body weight 164.00 [lb_av] 164.00 [lb_av] MEDEN T ([facility] ) Body height 68 [in_i] 68 [in_i] MEDENT ([facility] ) 5'8" Respiratory rate 14 /min 14 /min MEDENT ( [facility] ) Heart rate 78 /min 78 /min MEDENT ([facility]) Diastolic blood pressure 80 mm[Hg] 80 mm[Hg] MEDENT ([facility]) Systolic blood pressure 120 mm[Hg] 120 mm[Hg] M EDENT ([facility] ) Diastolic blood pressure 82 mm[Hg] 82 mm[Hg] eCW1 ([facility]) Systolic blood pressure 120 mm[Hg] 120 mm[Hg] e CW1 ([facility]) Body temperature 98 [degF] 98 [degF] eCW1 ([facility]) Respiratory rate 18 /min 18 /min eCW1 ([facility]) Heart rate 125 /min 125 /min eCW1 ([facility]) Body mass index (BMI) [Ratio] 24.19 kg/m2 24.19 kg/m2 W1 ([facility]) Body height 69 [in_i] 69 [in_i] eCW1 ([facility]) Body weight 163.8 [lb_av] 163.8 [lb_av] eCW1 ([facility]) Diastolic blood pressure 78 mm[Hg] 78 mm[Hg] eCW1 ([facility]) Systolic blood pressure 130 mm[Hg] 130 mm[Hg] e CW1 ([facility]) Body temperature 98.5 [degF] 98.5 [degF] eCW1 ( [facility]) Respiratory rate 18 /min 18 /min eCW1 ([facility]) Heart rate 102 /min 102 /min eCW1 ([facility]) Body mass index (BMI) [Ratio] 24.57 kg/m2 24.57 kg/m2 eCW1 ([facility]) Body height 69 [in_i] 69 [in_i] eCW1 ([facility]) Body weight 166.4 [lb_av] 166.4 [lb_av] eCW1 ([facility]) Diastolic blood pressure 70 mm[Hg] 70 mm[Hg] eCW1 ([facility]) Systolic blood pressure 110 mm[Hg] 110 mm[Hg] e CW1 ([facility]) Body temperature 97.3 [degF] 97.3 [degF] eCW1 ( [facility]) Respiratory rate 18 /min 18 /min eCW1 ([facility]) Heart rate 107 /min 107 /min eCW1 ([facility]) Body mass index (BMI) [Ratio] 24.22 kg/m2 24.22 kg/m2 eCW1 ([facility]) Body height 69 [in_i] 69 [in_i] eCW1 ([facility]) Body weight 164 [lb_av] 164 [lb_av] eCW1 ([facility]) Diastolic blood pressure 85 mm[Hg] 85 mm[Hg] eCW1 ([facility]) Systolic blood pressure 112 mm[Hg] 112 mm[Hg] e CW1 ([facility]) Body temperature 98.3 [degF] 98.3 [degF] eCW1 ( [facility]) Respiratory rate 18 /min 18 /min eCW1 ([facility]) Heart rate 107 /min 107 /min eCW1 ([facility]) Body mass index (BMI) [Ratio] 23.95 kg/m2 23.95 kg/m2 eCW1 ([facility]) Body height 69 [in_i] 69 [in_i] eCW1 ([facility]) Body weight 162.2 [lb_av] 162.2 [lb_av] eCW1 ([facility]) Diastolic blood pressure 88 mm[Hg] 88 mm[Hg] eCW1 ([facility]) Systolic blood pressure 135 mm[Hg] 135 mm[Hg] e CW1 ([facility]) Body temperature 97.5 [degF] 97.5 [degF] eCW1 ( [facility]) Respiratory rate 18 /min 18 /min eCW1 ([facility]) Heart rate 86 /min 86 /min eCW1 ([facility]) Body mass index (BMI) [Ratio] 24.22 kg/m2 24.22 kg/m2 eCW1 ([facility]) Body height 69 [in_us] 69 [in_us] eCW1 ([facility]) Body weight Measured 164 [lb_av] 164 [lb_av] eC W1 ([facility]) Diastolic blood pressure 86 mm[Hg] 86 mm[Hg] eCW1 ([facility]) Systolic blood pressure 131 mm[Hg] 131 mm[Hg] e CW1 ([facility]) Body temperature 97.9 [degF] 97.9 [degF] eCW1 ( [facility]) Respiratory rate 16 /min 16 /min eCW1 ([facility]) Heart rate 93 /min 93 /min eCW1 ([facility]) Body mass index (BMI) [Ratio] 24.22 kg/m2 24.22 kg/m2 W1 ([facility]) Body height 69 [in_us] 69 [in_us] eCW1 ([facility]) Body weight Measured 164 [lb_av] 164 [lb_av] eC W1 ([facility]) Diastolic blood pressure 94 mm[Hg] 94 mm[Hg] eCW1 ([facility]) Systolic blood pressure 137 mm[Hg] 137 mm[Hg] e CW1 ([facility]) Body temperature 98.5 [degF] 98.5 [degF] eCW1 ( [facility]) Respiratory rate 16 /min 16 /min eCW1 ([facility]) Heart rate 90 /min 90 /min eCW1 ([facility]) Body mass index (BMI) [Ratio] 24.22 kg/m2 24.22 kg/m2 eCW1 ([facility]) Body height 69 [in_us] 69 [in_us] eCW1 ([facility]) Body weight Measured 164 [lb_av] 164 [lb_av] eC W1 ([facility]) Diastolic blood pressure 76 mm[Hg] 76 mm[Hg] eCW1 ([facility]) Systolic blood pressure 132 mm[Hg] 132 mm[Hg] e CW1 ([facility]) Body temperature 97.9 [degF] 97.9 [degF] eCW1 ( [facility]) Respiratory rate 18 /min 18 /min eCW1 ([facility]) Heart rate 81 /min 81 /min eCW1 ([facility]) Body mass index (BMI) [Ratio] 24.36 kg/m2 24.36 kg/m2 eCW1 ([facility]) Body height 69 [in_us] 69 [in_us] eCW1 ([facility]) Body weight Measured 165 [lb_av] 165 [lb_av] eC W1 ([facility]) Diastolic blood pressure 86 mm[Hg] 86 mm[Hg] eCW1 ([facility]) Systolic blood pressure 138 mm[Hg] 138 mm[Hg] e CW1 ([facility]) Body temperature 97.1 [degF] 97.1 [degF] eCW1 ( [facility]) Respiratory rate 18 /min 18 /min eCW1 ([facility]) Heart rate 77 /min 77 /min eCW1 ([facility]) Body mass index (BMI) [Ratio] 24.36 kg/m2 24.36 kg/m2 eCW1 ([facility]) Body height 69 [in_us] 69 [in_us] eCW1 ([facility]) Body weight Measured 165.0 [lb_av] 165.0 [lb_av ] eCW1 ([facility]) Diastolic blood pressure 91 mm[Hg] 91 mm[Hg] eCW1 ([facility]) Systolic blood pressure 145 mm[Hg] 145 mm[Hg] e CW1 ([facility]) Body temperature 97.9 [degF] 97.9 [degF] eCW1 ( [facility]) Respiratory rate 18 /min 18 /min eCW1 ([facility]) Heart rate 76 /min 76 /min eCW1 ([facility]) Body mass index (BMI) [Ratio] 24.13 kg/m2 24.13 kg/m2 eCW1 ([facility]) Body height 69 [in_us] 69 [in_us] eCW1 ([facility]) Body weight Measured 163.4 [lb_av] 163.4 [lb_av ] eCW1 ([facility]) Diastolic blood pressure 101 mm[Hg] 101 mm[Hg] eCW1 ([facility]) Systolic blood pressure 141 mm[Hg] 141 mm[Hg] e CW1 ([facility]) Body temperature 97.9 [degF] 97.9 [degF] eCW1 ( [facility]) Respiratory rate 18 /min 18 /min eCW1 ([facility]) Heart rate 82 /min 82 /min eCW1 ([facility]) Body mass index (BMI) [Ratio] 24.13 kg/m2 24.13 kg/m2 eCW1 ([facility]) Body height 69 [in_us] 69 [in_us] eCW1 ([facility]) Body weight Measured 163.4 [lb_av] 163.4 [lb_av ] eCW1 ([facility]) Diastolic blood pressure 84 mm[Hg] 84 mm[Hg] eCW1 ([facility]) Systolic blood pressure 120 mm[Hg] 120 mm[Hg] e CW1 ([facility]) Body temperature 97.2 [degF] 97.2 [degF] eCW1 ( [facility]) Respiratory rate 18 /min 18 /min eCW1 ([facility]) Heart rate 95 /min 95 /min eCW1 ([facility]) Body mass index (BMI) [Ratio] 23.60 kg/m2 23.60 kg/m2 eCW1 ([facility]) Body height 69 [in_us] 69 [in_us] eCW1 ([facility]) Body weight Measured 159.8 [lb_av] 159.8 [lb_av ] eCW1 ([facility]) ID Date Data Source [id number] 06/01/2019 11:45:02 AM [facility] Name Value Range Interpretation Code Description Data Source(s) WEIGHT RECORDED 165 lb 165 lb [facility] Body height Measured 69 in 69 in [facility] Patient Treatment Plan of Care Planned Activity Planned Date Details Description Data Source (s) Morphine Sulfate 15 MG Oral Tablet 02/23/2020 12:00:00 AM EST eCW1 ([facility]) Acetaminophen 325 MG / Oxycodone Hydrochloride 10 MG O ral Tablet [Percocet] 02/23/2020 12:00:00 AM EST eCW1 ([facility]) Morphine Sulfate 15 MG Oral Tablet 02/23/2020 12:00:00 AM EST eCW1 ([facility]) Acetaminophen 325 MG / Oxycodone Hydrochloride 10 MG O ral Tablet [Percocet] 02/23/2020 12:00:00 AM EST eCW1 ([facility]) Morphine Sulfate 15 MG Oral Tablet 02/23/2020 12:00:00 AM EST eCW1 ([facility]) Acetaminophen 325 MG / Oxycodone Hydrochloride 10 MG O ral Tablet [Percocet] 02/23/2020 12:00:00 AM EST eCW1 ([facility]) Budesonide 180 MCG/ACT 02/16/2020 12:00:00 AM EST eCW1 ([facility]) Budesonide 180 MCG/ACT 02/16/2020 12:00:00 AM EST eCW1 ([facility]) Budesonide 180 MCG/ACT 02/16/2020 12:00:00 AM EST eCW1 ([facility]) Albuterol 0.833 MG/ML / Ipratropium [place] 0.167 MG/M L Inhalant Solution 01/28/2020 12:00:00 AM EST eCW1 ([facility]) Albuterol 0.833 MG/ML / Ipratropium [place] 0.167 MG/M L Inhalant Solution 01/28/2020 12:00:00 AM EST eCW1 ([facility]) Albuterol 0.833 MG/ML / Ipratropium [place] 0.167 MG/M L Inhalant Solution 01/28/2020 12:00:00 AM EST eCW1 ([facility]) Albuterol 0.833 MG/ML / Ipratropium [place] 0.167 MG/M L Inhalant Solution 01/28/2020 12:00:00 AM EST eCW1 ([facility]) Albuterol 0.833 MG/ML / Ipratropium [place] 0.167 MG/M L Inhalant Solution 01/28/2020 12:00:00 AM EST eCW1 ([facility]) Albuterol 0.833 MG/ML / Ipratropium [place] 0.167 MG/M L Inhalant Solution 01/28/2020 12:00:00 AM EST eCW1 ([facility]) Morphine Sulfate ER 15 MG 01/27/2020 12:00:00 AM EST eCW1 ([facility]) Morphine Sulfate 15 MG Extended Release Oral Tablet 01/27/20 12:00:00 AM EST eCW1 ([facility]) Morphine Sulfate 15 MG Oral Tablet 01/27/2020 12:00:00 AM EST eCW1 ([facility]) Morphine Sulfate ER 15 MG 01/27/2020 12:00:00 AM EST eCW1 ([facility]) Morphine Sulfate 15 MG Extended Release Oral Tablet 01/27/20 12:00:00 AM EST eCW1 ([facility]) Morphine Sulfate 15 MG Oral Tablet 01/27/2020 12:00:00 AM EST eCW1 ([facility]) Morphine Sulfate ER 15 MG 01/26/2020 12:00:00 AM EST eCW1 ([facility]) Acetaminophen 325 MG / Oxycodone Hydrochloride 10 MG O ral Tablet [Percocet] 01/22/2020 12:00:00 AM EST eCW1 ([facility]) Acetaminophen 325 MG / Oxycodone Hydrochloride 10 MG O ral Tablet [Percocet] 01/22/2020 12:00:00 AM EST eCW1 ([facility]) Acetaminophen 325 MG / Oxycodone Hydrochloride 10 MG O ral Tablet [Percocet] 01/22/2020 12:00:00 AM EST eCW1 ([facility]) Acetaminophen 325 MG / Oxycodone Hydrochloride 10 MG O ral Tablet [Percocet] 01/22/2020 12:00:00 AM EST eCW1 ([facility]) Acetaminophen 325 MG / Oxycodone Hydrochloride 10 MG O ral Tablet [Percocet] 01/22/2020 12:00:00 AM EST eCW1 ([facility]) Acetaminophen 325 MG / Oxycodone Hydrochloride 10 MG O ral Tablet [Percocet] 01/22/2020 12:00:00 AM EST eCW1 ([facility]) Acetaminophen 325 MG / Oxycodone Hydrochloride 10 MG O ral Tablet [Percocet] 01/22/2020 12:00:00 AM EST eCW1 ([facility]) Morphine Sulfate ER 15 MG 01/20/2020 12:00:00 AM EST eCW1 ([facility]) Morphine Sulfate ER 15 MG 01/20/2020 12:00:00 AM EST eCW1 ([facility]) Morphine Sulfate ER 15 MG 01/20/2020 12:00:00 AM EST eCW1 ([facility]) Morphine Sulfate ER 15 MG 01/20/2020 12:00:00 AM EST eCW1 ([facility]) Morphine Sulfate ER 15 MG 01/20/2020 12:00:00 AM EST eCW1 ([facility]) Morphine Sulfate ER 15 MG 01/20/2020 12:00:00 AM EST eCW1 ([facility]) Morphine Sulfate ER 15 MG 01/20/2020 12:00:00 AM EST eCW1 ([facility]) duloxetine 30 MG Delayed Release Oral Capsule [Cymbalt a] 01/13/2020 12:00:00 AM EST eCW1 ([facility]) Spiriva Respimat 1.25 MCG/ACT 12/29/2019 12:00:00 AM EST eCW1 ([facility]) Spiriva Respimat 1.25 MCG/ACT 12/29/2019 12:00:00 AM EST eCW1 ([facility]) Spiriva Respimat 1.25 MCG/ACT 12/29/2019 12:00:00 AM EST eCW1 ([facility]) Spiriva Respimat 1.25 MCG/ACT 12/29/2019 12:00:00 AM EST eCW1 ([facility]) Spiriva Respimat 1.25 MCG/ACT 12/29/2019 12:00:00 AM EST eCW1 ([facility]) Spiriva Respimat 1.25 MCG/ACT 12/29/2019 12:00:00 AM EST eCW1 ([facility]) Spiriva Respimat 1.25 MCG/ACT 12/29/2019 12:00:00 AM EST eCW1 ([facility]) Spiriva Respimat 1.25 MCG/ACT 12/29/2019 12:00:00 AM EST eCW1 ([facility]) Spiriva Respimat 1.25 MCG/ACT 12/29/2019 12:00:00 AM EST eCW1 ([facility]) Spiriva Respimat 1.25 MCG/ACT 12/29/2019 12:00:00 AM EST eCW1 ([facility]) Acetaminophen 325 MG / Oxycodone Hydrochloride 10 MG O ral Tablet [Percocet] 12/22/2019 12:00:00 AM EST eCW1 ([facility]) Omeprazole 40 MG Delayed Release Oral Capsule 12/22/2019 12:00:00 A M EST eCW1 ([facility]) Sucralfate 1000 MG Oral Tablet 12/22/2019 12:00:00 AM EST eCW1 ([facility]) Acetaminophen 325 MG / Oxycodone Hydrochloride 10 MG O ral Tablet [Percocet] 12/22/2019 12:00:00 AM EST eCW1 ([facility]) Omeprazole 40 MG Delayed Release Oral Capsule 12/22/2019 12:00:00 A M EST eCW1 ([facility]) Sucralfate 1000 MG Oral Tablet 12/22/2019 12:00:00 AM EST eCW1 ([facility]) Acetaminophen 325 MG / Oxycodone Hydrochloride 10 MG O ral Tablet [Percocet] 12/22/2019 12:00:00 AM EST eCW1 ([facility]) Sucralfate 1000 MG Oral Tablet 12/22/2019 12:00:00 AM EST eCW1 ([facility]) Omeprazole 40 MG Delayed Release Oral Capsule 12/22/2019 12:00:00 A M EST eCW1 ([facility]) Acetaminophen 325 MG / Oxycodone Hydrochloride 10 MG O ral Tablet [Percocet] 12/22/2019 12:00:00 AM EST eCW1 ([facility]) Sucralfate 1000 MG Oral Tablet 12/22/2019 12:00:00 AM EST eCW1 ([facility]) Omeprazole 40 MG Delayed Release Oral Capsule 12/22/2019 12:00:00 A M EST eCW1 ([facility]) Acetaminophen 325 MG / Oxycodone Hydrochloride 10 MG O ral Tablet [Percocet] 12/22/2019 12:00:00 AM EST eCW1 ([facility]) Sucralfate 1000 MG Oral Tablet 12/22/2019 12:00:00 AM EST eCW1 ([facility]) Omeprazole 40 MG Delayed Release Oral Capsule 12/22/2019 12:00:00 A M EST eCW1 ([facility]) Acetaminophen 325 MG / Oxycodone Hydrochloride 10 MG O ral Tablet [Percocet] 12/22/2019 12:00:00 AM EST eCW1 ([facility]) Sucralfate 1000 MG Oral Tablet 12/22/2019 12:00:00 AM EST eCW1 ([facility]) Omeprazole 40 MG Delayed Release Oral Capsule 12/22/2019 12:00:00 A M EST eCW1 ([facility]) Omeprazole 40 MG Delayed Release Oral Capsule 12/22/2019 12:00:00 A M EST eCW1 ([facility]) Sucralfate 1000 MG Oral Tablet 12/22/2019 12:00:00 AM EST eCW1 ([facility]) Omeprazole 40 MG Delayed Release Oral Capsule 12/22/2019 12:00:00 A M EST eCW1 ([facility]) Sucralfate 1000 MG Oral Tablet 12/22/2019 12:00:00 AM EST eCW1 ([facility]) Omeprazole 40 MG Delayed Release Oral Capsule 12/22/2019 12:00:00 A M EST eCW1 ([facility]) Sucralfate 1000 MG Oral Tablet 12/22/2019 12:00:00 AM EST eCW1 ([facility]) Omeprazole 40 MG Delayed Release Oral Capsule 12/22/2019 12:00:00 A M EST eCW1 ([facility]) Sucralfate 1000 MG Oral Tablet 12/22/2019 12:00:00 AM EST eCW1 ([facility]) Omeprazole 40 MG Delayed Release Oral Capsule 12/22/2019 12:00:00 A M EST eCW1 ([facility]) Sucralfate 1000 MG Oral Tablet 12/22/2019 12:00:00 AM EST eCW1 ([facility]) Omeprazole 40 MG Delayed Release Oral Capsule 12/22/2019 12:00:00 A M EST eCW1 ([facility]) Sucralfate 1000 MG Oral Tablet 12/22/2019 12:00:00 AM EST eCW1 ([facility]) Omeprazole 40 MG Delayed Release Oral Capsule 12/22/2019 12:00:00 A M EST eCW1 ([facility]) Sucralfate 1000 MG Oral Tablet 12/22/2019 12:00:00 AM EST eCW1 ([facility]) Acetaminophen 325 MG / Oxycodone Hydrochloride 10 MG O ral Tablet [Percocet] 12/22/2019 12:00:00 AM EST eCW1 ([facility]) Omeprazole 40 MG Delayed Release Oral Capsule 12/22/2019 12:00:00 A M EST eCW1 ([facility]) Sucralfate 1000 MG Oral Tablet 12/22/2019 12:00:00 AM EST eCW1 ([facility]) Omeprazole 40 MG Delayed Release Oral Capsule 12/22/2019 12:00:00 A M EST eCW1 ([facility]) Sucralfate 1000 MG Oral Tablet 12/22/2019 12:00:00 AM EST eCW1 ([facility]) Omeprazole 40 MG Delayed Release Oral Capsule 12/22/2019 12:00:00 A M EST eCW1 ([facility]) Sucralfate 1000 MG Oral Tablet 12/22/2019 12:00:00 AM EST eCW1 ([facility]) Omeprazole 40 MG Delayed Release Oral Capsule 12/22/2019 12:00:00 A M EST eCW1 ([facility]) Sucralfate 1000 MG Oral Tablet 12/22/2019 12:00:00 AM EST eCW1 ([facility]) Acetaminophen 325 MG / Oxycodone Hydrochloride 10 MG O ral Tablet [Percocet] 11/24/2019 12:00:00 AM EDT eCW1 ([facility]) Diazepam 2 MG Oral Tablet 11/10/2019 12:00:00 AM EDT eCW1 ([facility]) Diazepam 2 MG Oral Tablet 11/10/2019 12:00:00 AM EDT eCW1 ([facility]) Diazepam 2 MG Oral Tablet 11/10/2019 12:00:00 AM EDT eCW1 ([facility]) Diazepam 2 MG Oral Tablet 11/10/2019 12:00:00 AM EDT eCW1 ([facility]) Diazepam 2 MG Oral Tablet 11/10/2019 12:00:00 AM EDT eCW1 ([facility]) Diazepam 2 MG Oral Tablet 11/10/2019 12:00:00 AM EDT eCW1 ([facility]) Diazepam 2 MG Oral Tablet 11/10/2019 12:00:00 AM EDT eCW1 ([facility]) Diazepam 2 MG Oral Tablet 11/10/2019 12:00:00 AM EDT eCW1 ([facility]) Diazepam 2 MG Oral Tablet 11/10/2019 12:00:00 AM EDT eCW1 ([facility]) Diazepam 2 MG Oral Tablet 11/10/2019 12:00:00 AM EDT eCW1 ([facility]) Diazepam 2 MG Oral Tablet 11/10/2019 12:00:00 AM EDT eCW1 ([facility]) Diazepam 2 MG Oral Tablet 11/10/2019 12:00:00 AM EDT eCW1 ([facility]) Diazepam 2 MG Oral Tablet 11/10/2019 12:00:00 AM EDT eCW1 ([facility]) Diazepam 2 MG Oral Tablet 11/10/2019 12:00:00 AM EDT eCW1 ([facility]) Diazepam 2 MG Oral Tablet 11/10/2019 12:00:00 AM EDT eCW1 ([facility]) Diazepam 2 MG Oral Tablet 11/10/2019 12:00:00 AM EDT eCW1 ([facility]) Diazepam 2 MG Oral Tablet 11/10/2019 12:00:00 AM EDT eCW1 ([facility]) Diazepam 2 MG Oral Tablet 11/10/2019 12:00:00 AM EDT eCW1 ([facility]) Diazepam 2 MG Oral Tablet 11/10/2019 12:00:00 AM EDT eCW1 ([facility]) Diazepam 2 MG Oral Tablet 11/10/2019 12:00:00 AM EDT eCW1 ([facility]) Diazepam 2 MG Oral Tablet 11/10/2019 12:00:00 AM EDT eCW1 ([facility]) Diazepam 2 MG Oral Tablet 11/10/2019 12:00:00 AM EDT eCW1 ([facility]) Diazepam 2 MG Oral Tablet 11/10/2019 12:00:00 AM EDT eCW1 ([facility]) Diazepam 2 MG Oral Tablet 11/10/2019 12:00:00 AM EDT eCW1 ([facility]) Diazepam 2 MG Oral Tablet 11/10/2019 12:00:00 AM EDT eCW1 ([facility]) Diazepam 2 MG Oral Tablet 11/10/2019 12:00:00 AM EDT eCW1 ([facility]) Diazepam 2 MG Oral Tablet 11/10/2019 12:00:00 AM EDT eCW1 ([facility]) Diazepam 2 MG Oral Tablet 11/10/2019 12:00:00 AM EDT eCW1 ([facility]) Diazepam 2 MG Oral Tablet 11/10/2019 12:00:00 AM EDT eCW1 ([facility]) Diazepam 2 MG Oral Tablet 11/10/2019 12:00:00 AM EDT eCW1 ([facility]) Diazepam 2 MG Oral Tablet 11/10/2019 12:00:00 AM EDT eCW1 ([facility]) Diazepam 2 MG Oral Tablet 11/10/2019 12:00:00 AM EDT eCW1 ([facility]) Diazepam 2 MG Oral Tablet 11/10/2019 12:00:00 AM EDT eCW1 ([facility]) Diazepam 2 MG Oral Tablet 11/10/2019 12:00:00 AM EDT eCW1 ([facility]) Diazepam 2 MG Oral Tablet 11/10/2019 12:00:00 AM EDT eCW1 ([facility]) Diazepam 2 MG Oral Tablet 11/10/2019 12:00:00 AM EDT eCW1 ([facility]) Diazepam 2 MG Oral Tablet 11/10/2019 12:00:00 AM EDT eCW1 ([facility]) Diazepam 2 MG Oral Tablet 11/10/2019 12:00:00 AM EDT eCW1 ([facility]) Diazepam 2 MG Oral Tablet 11/10/2019 12:00:00 AM EDT eCW1 ([facility]) Diazepam 2 MG Oral Tablet 11/10/2019 12:00:00 AM EDT eCW1 ([facility]) Diazepam 2 MG Oral Tablet 11/10/2019 12:00:00 AM EDT eCW1 ([facility]) Diazepam 2 MG Oral Tablet 11/10/2019 12:00:00 AM EDT eCW1 ([facility]) Diazepam 2 MG Oral Tablet 11/10/2019 12:00:00 AM EDT eCW1 ([facility]) Diazepam 2 MG Oral Tablet 11/10/2019 12:00:00 AM EDT eCW1 ([facility]) Diazepam 2 MG Oral Tablet 11/10/2019 12:00:00 AM EDT eCW1 ([facility]) Diazepam 2 MG Oral Tablet 11/10/2019 12:00:00 AM EDT eCW1 ([facility]) Diazepam 2 MG Oral Tablet 11/10/2019 12:00:00 AM EDT eCW1 ([facility]) Diazepam 2 MG Oral Tablet 11/10/2019 12:00:00 AM EDT eCW1 ([facility]) Diazepam 2 MG Oral Tablet 11/10/2019 12:00:00 AM EDT eCW1 ([facility]) 28 ACTUAT tiotropium 0.0025 MG/ACTUAT Metered Dose Inh aler [Spiriva] 09/04/2019 12:00:00 AM EDT eCW1 ([facility]) 28 ACTUAT tiotropium 0.0025 MG/ACTUAT Metered Dose Inh aler [Spiriva] 09/04/2019 12:00:00 AM EDT eCW1 ([facility]) 28 ACTUAT tiotropium 0.0025 MG/ACTUAT Metered Dose Inh aler [Spiriva] 09/04/2019 12:00:00 AM EDT eCW1 ([facility]) 28 ACTUAT tiotropium 0.0025 MG/ACTUAT Metered Dose Inh aler [Spiriva] 09/04/2019 12:00:00 AM EDT eCW1 ([facility]) 28 ACTUAT tiotropium 0.0025 MG/ACTUAT Metered Dose Inh aler [Spiriva] 09/04/2019 12:00:00 AM EDT eCW1 ([facility]) 28 ACTUAT tiotropium 0.0025 MG/ACTUAT Metered Dose Inh aler [Spiriva] 09/04/2019 12:00:00 AM EDT eCW1 ([facility]) 28 ACTUAT tiotropium 0.0025 MG/ACTUAT Metered Dose Inh aler [Spiriva] 09/04/2019 12:00:00 AM EDT eCW1 ([facility]) Morphine Sulfate 15 MG Extended Release Oral Tablet 09/03/19 12:00:00 AM EDT eCW1 ([facility]) 200 ACTUAT Albuterol 0.09 MG/ACTUAT Metered Dose Inhal er [Ventolin] 08/25/2019 12:00:00 AM EDT eCW1 ([facility]) tiotropium 0.018 MG/ACTUAT Inhalant Powder [Spiriva] 12:00:00 AM EDT eCW1 ([facility]) 200 ACTUAT Albuterol 0.09 MG/ACTUAT Metered Dose Inhal er [Ventolin] 08/25/2019 12:00:00 AM EDT eCW1 ([facility]) tiotropium 0.018 MG/ACTUAT Inhalant Powder [Spiriva] 12:00:00 AM EDT eCW1 ([facility]) 200 ACTUAT Albuterol 0.09 MG/ACTUAT Metered Dose Inhal er [Ventolin] 08/25/2019 12:00:00 AM EDT eCW1 ([facility]) tiotropium 0.018 MG/ACTUAT Inhalant Powder [Spiriva] 12:00:00 AM EDT eCW1 ([facility]) 200 ACTUAT Albuterol 0.09 MG/ACTUAT Metered Dose Inhal er [Ventolin] 08/25/2019 12:00:00 AM EDT eCW1 ([facility]) tiotropium 0.018 MG/ACTUAT Inhalant Powder [Spiriva] 12:00:00 AM EDT eCW1 ([facility]) 200 ACTUAT Albuterol 0.09 MG/ACTUAT Metered Dose Inhal er [Ventolin] 08/25/2019 12:00:00 AM EDT eCW1 ([facility]) tiotropium 0.018 MG/ACTUAT Inhalant Powder [Spiriva] 12:00:00 AM EDT eCW1 ([facility]) Chlorthalidone 25 MG Oral Tablet 08/04/2019 12:00:00 AM EDT eCW1 ([facility]) Propranolol Hydrochloride 10 MG Oral Tablet 08/04/2019 12:00:00 AM EDT eCW1 ([facility]) Morphine Sulfate 15 MG Extended Release Oral Tablet 07/28/19 12:00:00 AM EDT eCW1 ([facility]) Morphine Sulfate 15 MG Extended Release Oral Tablet 07/28/19 12:00:00 AM EDT eCW1 ([facility]) Acetaminophen 325 MG / Oxycodone Hydrochloride 10 MG O ral Tablet [Percocet] 07/13/2019 12:00:00 AM EDT eCW1 ([facility]) Morphine Sulfate 15 MG Extended Release Oral Tablet 07/07/19 12:00:00 AM EDT eCW1 ([facility]) Acetaminophen 325 MG / Oxycodone Hydrochloride 10 MG O ral Tablet [Percocet] 06/17/2019 12:00:00 AM EDT eCW1 ([facility]) Morphine Sulfate 15 MG Extended Release Oral Tablet 06/03/19 12:00:00 AM EDT eCW1 ([facility]) Acetaminophen 325 MG / Oxycodone Hydrochloride 10 MG O ral Tablet [Percocet] 05/18/2019 12:00:00 AM EDT eCW1 ([facility]) Morphine Sulfate 15 MG Extended Release Oral Tablet 05/04/19 12:00:00 AM EDT eCW1 ([facility]) Morphine Sulfate 15 MG Extended Release Oral Tablet 04/08/19 12:00:00 AM EST eCW1 ([facility]) Diazepam 5 MG Oral Tablet 04/01/2019 12:00:00 AM [facility] atorvastatin 40 MG Oral Tablet 03/26/2019 12:00:00 AM EST eCW1 ([facility]) atorvastatin 40 MG Oral Tablet 03/26/2019 12:00:00 AM EST eCW1 ([facility]) atorvastatin 40 MG Oral Tablet 03/26/2019 12:00:00 AM EST eCW1 ([facility]) Nystatin [id number] UNT/ML Topical Cream 03/26/2019 12:00:00 AM EST eCW1 ([facility]) Nystatin [id number] UNT/ML Topical Cream 03/26/2019 12:00:00 AM EST eCW1 ([facility]) Nystatin [id number] UNT/ML Topical Cream 03/26/2019 12:00:00 AM EST eCW1 ([facility]) atorvastatin 40 MG Oral Tablet 03/26/2019 12:00:00 AM EST [facility] ([facility]) Losartan Potassium 50 MG Oral Tablet 03/26/2019 12:00:00 AM [facility] Ergocalciferol 47173 UNT Oral Capsule 03/26/2019 12:00:00 AM [facility] atorvastatin 40 MG Oral Tablet 03/26/2019 12:00:00 AM [facility] Nystatin [id number] UNT/ML Topical Cream 03/26/2019 12:00:00 AM EST W1 ([facility]) atorvastatin 40 MG Oral Tablet 03/26/2019 12:00:00 AM EST W1 ([facility]) Acetaminophen 325 MG / Oxycodone Hydrochloride 10 MG O ral Tablet [Percocet] 03/25/2019 12:00:00 AM EST [facility] ([facility]) Morphine Sulfate 15 MG Extended Release Oral Tablet 03/10/19 12:00:00 AM EST [facility] ([facility]) Diazepam 5 MG Oral Tablet 03/05/2019 12:00:00 AM [facility] Acetaminophen 325 MG / Oxycodone Hydrochloride 10 MG O ral Tablet [Percocet] 02/17/2019 12:00:00 AM EST [facility] ([facility]) Morphine Sulfate 15 MG Extended Release Oral Tablet 02/12/19 12:00:00 AM EST [facility] ([facility]) Acetaminophen 325 MG / Oxycodone Hydrochloride 10 MG O ral Tablet [Percocet] 01/19/2019 12:00:00 AM EST [facility] ([facility]) Morphine Sulfate 15 MG Extended Release Oral Tablet 01/16/20 12:00:00 AM EST [facility] ([facility]) Morphine Sulfate 15 MG Extended Release Oral Tablet 01/16/20 12:00:00 AM [place] [address] ([facility]) duloxetine 30 MG Delayed Release Oral Capsule 12/30/2018 12:00:00 A M [facility] Losartan Potassium 25 MG Oral Tablet 05/14/2018 12:00:00 AM [facility] Propranolol Hydrochloride 20 MG Oral Tablet 01/13/2018 12:00:00 AM EST [facility] Oxycodone Hydrochloride 5 MG Oral Tablet 06/25/2017 12:00:00 AM T [facility]
--- NOTE | 2020-02-29 17:37 | REP ---
INDICATION: SOB. COMPARISON: 01/19/2020 TECHNIQUE: Portable FINDINGS: The technique utilized in obtaining the radiograph has magnified the cardiac silhouette and accentuated the interstitial markings. The superior mediastinal structures are midline. The cardiac silhouette is unremarkable in size, shape, and position. The diaphragmatic surfaces of the lungs are regular, and the costophrenic angles are clear. The pulmonary hensley are unchanged. There is an old calcified granuloma in the left lower lobe. There is stable biapical pleuroparenchymal scarring. The imaged osseous structures are intact. IMPRESSION: There is no acute cardiopulmonary disease. <Electronically signed by Fred Patel > 02/29/20 [id number]
[2020-02-29 17:53] LABS: BASO # 0.1 10^3/uL (0.0-0.2); BASO % 0.7 % (0.0-1.0); EOS # 0.1 10^3/uL (0.0-0.5); EOS % 1.2 % (0.0-3.0); HEMATOCRIT 38.9 % (42.0-52.0); HEMOGLOBIN 13.1 g/dl (13.5-17.5); LYMPH % 29.3 % (24.0-44.0); MEAN CORPUSCULAR HEMOGLOBIN 32.3 pg (27.0-33.0); MEAN CORPUSCULAR HGB CONC 33.7 g/dl (32.0-36.5); MEAN CORPUSCULAR VOLUME 95.8 fl (80.0-96.0); MONO # 0.6 10^3/uL (0.0-0.8); MONO % 8.1 % (0.0-5.0); NEUTROPHILS # 4.1 10^3/uL (1.5-8.5); NEUTROPHILS % 60.6 % (36.0-66.0); PLATELET COUNT, AUTOMATED 263 10^3/uL (150-450); RED BLOOD COUNT 4.06 10^6/uL (4.30-6.10); WHITE BLOOD COUNT 6.8 10^3/uL (4.0-10.0)
[2020-02-29 18:11] LABS: INR 1.02; PROTHROMBIN TIME 13.6 SECONDS (12.5-14.3)
[2020-02-29 18:12] LABS: PARTIAL THROMBOPLASTIN TIME 35.1 SECONDS (24.2-38.5)
[2020-02-29 18:38] LABS: ACETAMINOPHEN LEVEL < 2.0 UG/ML (10.0-30.0); ALBUMIN 3.7 GM/DL (3.2-5.2); ALT/SGPT 15 U/L (12-78); BILIRUBIN,DIRECT 0.1 MG/DL (0.0-0.2); BILIRUBIN,TOTAL 0.3 MG/DL (0.2-1.0); BLOOD UREA NITROGEN 6 MG/DL (7-18); CALCIUM LEVEL 8.7 MG/DL (8.5-10.1); CARBON DIOXIDE LEVEL 26 MEQ/L (21-32); CHLORIDE LEVEL 106 MEQ/L (98-107); CK-MB VALUE MASS < 1.0 NG/ML (<3.6); CPK CREATINE PHOSPHOKINASE 90 U/L (39-308); ETHYL ALCOHOL (ETHANOL) < 0.003 % (0.000-0.010); FREE T4 1.07 NG/DL (0.76-1.46); GLOMERULAR FILTRATION RATE > 60.0 (>56); GLUCOSE, FASTING 109 MG/DL (70-100); MB/CK RELATIVE INDEX 1.11 (< OR =4); NT-PRO BNP 26 PG/ML (<125); POTASSIUM SERUM 4.1 MEQ/L (3.5-5.1); SALICYLATE LEVEL 8.2 MG/DL (5.0-30.0); SODIUM LEVEL 136 MEQ/L (136-145); THYROID STIMULATING HORMONE 0.427 uIU/ML (0.358-3.740); TOTAL PROTEIN 6.7 GM/DL (6.4-8.2); TROPONIN I < 0.02 NG/ML (< 0.10)
--- OUTSIDE RECORDS SUMMARY | 2020-02-29 18:57 | CCD ---
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 Name Role Phone Jakub BOWIE MD Unavailable [...] JUDGE MD Unavailable Unavailable MANJARREZ, R PATRICK GLOVE OPERATOR Unavailable Unavailable MANJARREZ, R PATRICK GLOVE OPERATOR Unavailable Unavailable MANJARREZ, R PATRICK GLOVE OPERATOR Unavailable Unavailable MANJARREZ, R PATRICK GLOVE OPERATOR Unavailable Unavailable MANJARREZ, R PATRICK GLOVE OPERATOR Unavailable Unavailable MANJARREZ, R PATRICK GLOVE OPERATOR Unavailable Unavailable MANJARREZ, R PATRICK GLOVE OPERATOR Unavailable Unavailable MANJARREZ, R PATRICK GLOVE OPERATOR Unavailable Unavailable MANJARREZ, R PATRICK GLOVE OPERATOR Unavailable Unavailable MANJARREZ, R PATRICK GLOVE OPERATOR Unavailable Unavailable MANJARREZ, R PATRICK GLOVE OPERATOR Unavailable Unavailable MANJARREZ, R PATRICK GLOVE OPERATOR Unavailable Unavailable MANJARREZ, R PATRICK GLOVE OPERATOR Unavailable Unavailable MANJARREZ, R PATRICK GLOVE OPERATOR Unavailable Unavailable MANJARREZ, R PATRICK GLOVE OPERATOR Unavailable Unavailable MANJARREZ, R PATRICK GLOVE OPERATOR Unavailable Unavailable MANJARREZ, R PATRICK GLOVE OPERATOR Unavailable Unavailable MANJARREZ, R PATRICK GLOVE OPERATOR Unavailable Unavailable MANJARREZ, R PATRICK GLOVE OPERATOR Unavailable Unavailable MANJARREZ, R PATRICK GLOVE OPERATOR Unavailable Unavailable MANJARREZ, R PATRICK GLOVE OPERATOR Unavailable Unavailable MANJARREZ, R PATRICK GLOVE OPERATOR Unavailable Unavailable MANJARREZ, R PATRICK GLOVE OPERATOR Unavailable Unavailable MANJARREZ, R PATRICK GLOVE OPERATOR Unavailable Unavailable MANJARREZ, R PATRIKC GLOVE OPERATOR Unavailable Unavailable MANJARREZ, R PATRICK GLOVE OPERATOR Unavailable Unavailable MANJARREZ, R PATRICK GLOVE OPERATOR Unavailable Unavailable MANJARREZ, R PATRICK GLOVE OPERATOR Unavailable Unavailable MANJARREZ, R PATRICK GLOVE OPERATOR Unavailable Unavailable MANJARREZ, R PATRICK GLOVE OPERATOR Unavailable Unavailable MANJARREZ, R PATRICK GLOVE OPERATOR Unavailable Unavailable MANJARREZ, R PATRICK GLOVE OPERATOR Unavailable Unavailable MANJARREZ, R PATRICK GLOVE OPERATOR Unavailable Unavailable MANJARREZ, R PATRICK GLOVE OPERATOR Unavailable Unavailable MANJARREZ, R PATRICK GLOVE OPERATOR Unavailable Unavailable MANJARREZ, R PATRICK GLOVE OPERATOR Unavailable Unavailable MANJARREZ, R PATRICK GLOVE OPERATOR Unavailable Unavailable MANJARREZ, R PATRICK GLOVE OPERATOR Unavailable Unavailable MANJARREZ, R PATRICK GLOVE OPERATOR Unavailable Unavailable MANJARREZ, R PATRICK GLOVE OPERATOR Unavailable Unavailable MANJARREZ, R PATRICK GLOVE OPERATOR Unavailable Unavailable Poe, M Brigid GLOVE OPERATOR Unavailable Unavailable Poe, M Brigid GLOVE OPERATOR Unavailable Unavailable Poe, M Brigid GLOVE OPERATOR Unavailable Unavailable Poe, M Brigid GLOVE OPERATOR Unavailable Unavailable Poe, M Brigid GLOVE OPERATOR Unavailable Unavailable Poe, M Brigid GLOVE OPERATOR Unavailable Unavailable Poe, M Brigid GLOVE OPERATOR Unavailable Unavailable Poe, M Brigid GLOVE OPERATOR Unavailable Unavailable Poe, M Brigid GLOVE OPERATOR Unavailable Unavailable Poe, M Brigid GLOVE OPERATOR Unavailable Unavailable Poe, M Brigid GLOVE OPERATOR Unavailable Unavailable Poe, M Brigid GLOVE OPERATOR Unavailable Unavailable Poe, M Brigid GLOVE OPERATOR Unavailable Unavailable Poe, M Brigid GLOVE OPERATOR Unavailable Unavailable Poe, M Brigid GLOVE OPERATOR Unavailable Unavailable Poe, M Brigid GLOVE OPERATOR Unavailable Unavailable Poe, M Brigid GLOVE OPERATOR Unavailable Unavailable Poe, M Brigid GLOVE OPERATOR Unavailable Unavailable Poe, M Brigid GLOVE OPERATOR Unavailable Unavailable Poe, M Brigid GLOVE OPERATOR Unavailable Unavailable Poe, M Brigid GLOVE OPERATOR Unavailable Unavailable Poe, M Brigid GLOVE OPERATOR Unavailable Unavailable Poe, M Brigid GLOVE OPERATOR Unavailable Unavailable Poe, M Brigid GLOVE OPERATOR Unavailable Unavailable Poe, M Brigid GLOVE OPERATOR Unavailable Unavailable Poe, M Brigid GLOVE OPERATOR Unavailable Unavailable Poe, M Brigid GLOVE OPERATOR Unavailable Unavailable Poe, M Brigid GLOVE OPERATOR Unavailable Unavailable Poe, M Brigid GLOVE OPERATOR Unavailable Unavailable Poe, M Brigid GLOVE OPERATOR Unavailable Unavailable Brooklyn Huber MD Unavailable Unavailable [...] is protected by Article 27-F of the [facility] Public Health law. If you continue you may have access to information: Regarding HIV / AIDS; Provided by facilities licensed or operated by the [facility] Office of Mental Health; or Provided by the [facility] Office for People With Developmental Disabilities. If such information is present, then the following [place] State mandated warning applies: This information has [...] law may result in a fine or long term sentence or both. A general authorization for the release of medical or other information is NOT sufficient authorization for further disc losure. Allergies and Adverse Reactions Type Description Substance Reaction Status Data Source(s ) Drug allergy Dexamethasone Dexamethasone erythema Active eCW1 ( [facility]) Drug allergy Penicillin (For Allergies Use Only) Drug allergy told as a child to not take Active eCW1 ([facility]) Family History Family Member Name Family Member Gender Family Member Status Date o f Status Description Data Source(s) Unknown Male Problem MEDENT ([facility] ) Unknown Unknown Problem MEDENT ([facility], ) Unknown Unknown Problem MEDENT ([facility], ) Unknown Unknown Problem MEDENT ([facility], ) Unknown Unknown Problem MEDENT ([facility]) Encounters Encounter Providers Location Date Indications Data Source(s ) Outpatient Attender: NU BOWIE MD 03/10/2020 12:00:00 A M [facility] Unknown [address] [facility] [address] 02/23/2020 12:00:00 AM EST eCW1 ([facility]) Unknown [address] [facility] [address] 02/23/2020 12:00:00 AM EST eCW1 ([facility]) Unknown [address] [facility] [address] 02/23/2020 12:00:00 AM EST eCW1 ([facility]) Unknown [address] [facility] [address] 02/08/2020 12:00:00 AM EST eCW1 ([facility]) TeleMedicine Phone E/M by Phys 21-30 Min [address] [place] [address] 01/28/2020 12:00:00 AM EST eCW1 ([facility]) Outpatient Attender: NU BOWIE MD 01/28/2020 12:00:00 A M [facility] Unknown [address] [facility] [address] 01/27/2020 12:00:00 AM EST eCW1 ([facility] [place] [address] [facility] [address] 01/27/2020 12:00:00 AM EST [facility]CW1 ([facility] [place] [address] [facility] [address] 01/27/2020 12:00:00 AM EST eCW1 ([facility]) Unknown [address] [facility] Y [address] 01/26/2020 12:00:00 AM EST eCW1 ([facility]) Unknown [address] [facility] Y [address] 01/25/2020 12:00:00 AM EST eCW1 ([facility]) [place] [address] [facility] [address] 01/22/2020 12:00:00 AM EST eCW1 ([facility]) Unknown [address] [facility] [address] 01/20/2020 12:00:00 AM EST eCW1 ([facility]) Unknown [address] [facility] [address] 01/20/2020 12:00:00 AM EST eCW1 ([facility]) ([facility]) [facility] Scheduled Visit [address] [place] [address] 01/19/2020 12:00:00 AM EST eCW1 ([facility]) Unknown [address] [facility] Y [address] 01/19/2020 12:00:00 AM EST eCW1 ([facility]) Unknown [address] [facility] Y [address] 01/18/2020 12:00:00 AM EST eCW1 ([facility]) [place] [address] [facility] [address] 01/18/2020 12:00:00 AM EST eCW1 ([facility]) Outpatient [address] [facility] [place] [address] 01/15/2020 12:00:00 AM EST eCW1 ([facility]) Unknown [address] [facility] [address] 01/15/2020 12:00:00 AM EST eCW1 ([facility]) Unknown [address] [facility] [address] 01/14/2020 12:00:00 AM EST eCW1 ([facility]) Unknown [address] [facility] [address] 01/13/2020 12:00:00 AM EST eCW1 ([facility]) Unknown [address] [facility] [place] [address] 01/13/2020 12:00:00 AM EST eCW1 ([facility]) Unknown [address] [facility] [address] 01/13/2020 12:00:00 AM EST eCW1 ([facility]) Outpatient Attender: NU BOWIE MD 01/13/2020 12:00:00 A [facility] Unknown [address] [facility] [address] 01/12/2020 12:00:00 AM EST eCW1 ([facility]) Unknown [address] [facility] [address] 01/12/2020 12:00:00 AM EST eCW1 ([facility]) Unknown [address] [facility] [place] [address] 01/12/2020 12:00:00 AM EST eCW1 ([facility]) Unknown [address] [facility] [address] 01/11/2020 12:00:00 AM EST eCW1 ([facility]) Unknown [address] [facility] [address] 01/10/2020 12:00:00 AM EST eCW1 ([facility]) Unknown [address] [facility] [address] 01/05/2020 12:00:00 AM EST eCW1 ([facility]) Unknown [address] [facility] [address] 01/04/2020 12:00:00 AM EST eCW1 ([facility]) Unknown [address] [facility] [address] 01/02/2020 12:00:00 AM EST eCW1 ([facility]) Unknown [address] [facility] [address] 01/01/2020 12:00:00 AM EST eCW1 ([facility]) Unknown [address] [facility] [address] 12/31/2019 12:00:00 AM EST eCW1 ([facility]) Unknown [address] [facility] [address] 12/29/2019 12:00:00 AM EST eCW1 ([facility]) Unknown [address] [facility] [address] 12/28/2019 12:00:00 AM EST eCW1 ([facility]) Unknown [address] [facility] [address] 12/25/2019 12:00:00 AM EST eCW1 ([facility]) Outpatient [address] [facility] [address] 12/24/2019 12:00:00 AM EST eCW1 ([facility]) Unknown [address] [facility] [address] 12/24/2019 12:00:00 AM EST eCW1 ([facility]) Unknown [address] [facility] [address] 12/24/2019 12:00:00 AM EST eCW1 ([facility]) Unknown [address] [facility] [address] 12/24/2019 12:00:00 AM EST eCW1 ([facility]) Unknown [address] [facility] [address] 12/24/2019 12:00:00 AM EST eCW1 ([facility]) Unknown [address] [facility] [address] 12/23/2019 12:00:00 AM EST eCW1 ([facility]) Unknown [address] [facility] [address] 12/23/2019 12:00:00 AM EST eCW1 ([facility]) Unknown [address] [facility] [address] 12/23/2019 12:00:00 AM EST eCW1 ([facility]) Unknown [address] [facility] [address] 12/22/2019 12:00:00 AM EST eCW1 ([facility]) Unknown [address] [facility] [address] 12/22/2019 12:00:00 AM EST eCW1 ([facility]) Outpatient [address] [facility] [address] 12/22/2019 12:00:00 AM EST eCW1 ([facility]) Unknown [address] [facility] [address] 12/22/2019 12:00:00 AM EST eCW1 ([facility]) Unknown [address] [facility] [address] 12/21/2019 12:00:00 AM EST eCW1 ([facility]) Unknown [address] [facility] [address] 12/20/2019 12:00:00 AM EST eCW1 ([facility]) Unknown [address] [facility] [address] 12/18/2019 12:00:00 AM EST eCW1 ([facility]) Unknown [address] [facility] Y [address] 12/18/2019 12:00:00 AM EST eCW1 ([facility]) Unknown [address] [facility] Y [address] 12/18/2019 12:00:00 AM EST eCW1 ([facility]) Unknown [address] [facility] Y [address] 12/18/2019 12:00:00 AM EST eCW1 ([facility]) Outpatient [address] [facility] Y [address] 12/17/2019 12:00:00 AM EST eCW1 ([facility]) (PN Proc 45) Pain Procedure 45 [address] [place] [address] 12/11/2019 12:00:00 AM EDT eCW1 ([facility]) Unknown [address] [facility] Y [address] 12/10/2019 12:00:00 AM EDT eCW1 ([facility]) Unknown [address] [facility] Y [address] 12/10/2019 12:00:00 AM EDT eCW1 ([facility]) Unknown [address] [facility] Y [address] 12/09/2019 12:00:00 AM EDT eCW1 ([facility]) Unknown [address] [facility] Y [address] 12/07/2019 12:00:00 AM EDT eCW1 ([facility]) Unknown [address] [facility] Y [address] 12/01/2019 12:00:00 AM EDT eCW1 ([facility]) Unknown [address] [facility] Y [address] 11/30/2019 12:00:00 AM EDT eCW1 ([facility]) Outpatient [address] [facility] Y [address] 11/30/2019 12:00:00 AM EDT eCW1 ([facility]) Unknown [address] [facility], [place] [address] 11/29/2019 12:00:00 AM EDT eCW1 ([facility]) Outpatient [address] [facility] [address] 11/24/2019 12:00:00 AM EDT eCW1 ([facility]) Unknown [address] [facility], [place] [address] 11/17/2019 12:00:00 AM EDT eCW1 ([facility]) (PN Proc 45) Pain Procedure 45 [address] [place] [address] 11/12/2019 12:00:00 AM EDT eCW1 ([facility]) Unknown [address] [facility], [place] [address] 11/10/2019 12:00:00 AM EDT eCW1 ([facility]) Unknown [address] [facility] [address] 11/03/2019 12:00:00 AM EDT eCW1 ([facility]) Unknown [address] [facility] [address] 11/03/2019 12:00:00 AM EDT eCW1 ([facility]) Unknown [address] [facility] [address] 11/03/2019 12:00:00 AM EDT eCW1 ([facility]) Unknown [address] [facility] [address] 11/03/2019 12:00:00 AM EDT eCW1 ([facility]) Unknown [address] [facility] Y [address] 11/03/2019 12:00:00 AM EDT eCW1 ([facility]) Unknown [address] [facility] Y [address] 11/03/2019 12:00:00 AM EDT eCW1 ([facility]) [facility] [address] [facility] [address] 10/09/2019 12:00:00 AM EDT eCW1 ([facility]) Outpatient Attender: Brooklyn Huber MD Main office - [place] 09/28/2019 03:10:00 PM EDT MEDENT ([facility]) Outpatient Attender: Brooklyn Huber MD Main office - [place] 09/22/2019 11:30:00 AM EDT MEDENT ([facility]) [facility] [address] [place] [address] 09/14/2019 12:00:00 AM EDT eCW1 ([facility]) Outpatient [address] [facility] [address] 09/04/2019 12:00:00 AM EDT eCW1 ([facility]) Unknown [address] [facility] [address] 09/03/2019 12:00:00 AM EDT eCW1 ([facility]) Unknown [address] [facility] [address] 09/01/2019 12:00:00 AM EDT eCW1 ([facility]) Outpatient [address] [facility] [address] 08/31/2019 12:00:00 AM EDT eCW1 ([facility]) [place] [address] [facility] [address] 08/28/2019 12:00:00 AM EDT eCW1 ([facility]) Unknown [address] [facility] [address] 08/27/2019 12:00:00 AM EDT eCW1 ([facility]) Unknown [address] [facility], [place] [address] 08/27/2019 12:00:00 AM EDT eCW1 ([facility]) Unknown [address] [facility] [address] 08/26/2019 12:00:00 AM EDT eCW1 ([facility]) Outpatient [address] [facility] [address] 08/25/2019 12:00:00 AM EDT eCW1 ([facility]) Outpatient Attender: PATRICK MANJARREZ NP 08/25/2019 12:00:0 0 AM EDT [facility] Unknown [address] [facility] [address] 08/19/2019 12:00:00 AM EDT eCW1 ([facility]) Outpatient Referrer: Brigid Poe NP 08/13/2019 05:20:00 AM EDT [facility] Radiology Imaging Office Visit, Est Pt., Level 3 PC [address] [place] [address] 08/13/2019 12:00:00 AM EDT eCW1 ([facility]) Outpatient [address] [facility] [address] 08/04/2019 12:00:00 AM EDT eCW1 ([facility]) Unknown [address] [facility] [address] 08/03/2019 12:00:00 AM EDT eCW1 ([facility]) [facility] [address] [place] [address] 07/30/2019 12:00:00 AM EDT eCW1 ([facility]) Outpatient Referrer: Brigid Poe NP 07/29/2019 05:54:00 AM EDT [facility] Radiology Imaging [facility] [address] [place] [address] 07/29/2019 12:00:00 AM EDT eCW1 ([facility]) Unknown [address] [facility] [address] 07/28/2019 12:00:00 AM EDT eCW1 ([facility]) Unknown [address] [facility] [address] 07/24/2019 12:00:00 AM EDT eCW1 ([facility]) Unknown [address] [facility] [address] 07/22/2019 12:00:00 AM EDT eCW1 ([facility]) Outpatient [address] [facility] [address] 07/14/2019 12:00:00 AM EDT eCW1 ([facility]) TeleMedicine Phone E/M by Phys 11-[address] [place] [phone] 07/13/2019 12:00:00 AM EDT eCW1 ([facility]) [facility] [address] [place] [address] 07/13/2019 12:00:00 AM EDT eCW1 ([facility]) [facility] [address] [place] [address] 07/07/2019 12:00:00 AM EDT eCW1 ([facility]) [facility] [address] [place] [address] 06/25/2019 12:00:00 AM EDT eCW1 ([facility]) [facility] [address] [place] [address] 06/24/2019 12:00:00 AM EDT eCW1 ([facility]) [facility] [address] [place] [phone] 06/16/2019 12:00:00 AM EDT eCW1 ([facility]) [facility] [address] [place] [address] 06/12/2019 12:00:00 AM EDT eCW1 ([facility]) [facility] [address] [place] [phone] 06/03/2019 12:00:00 AM EDT eCW1 ([facility]) [facility] [address] [facility] [place] [address] 06/03/2019 12:00:00 AM EDT eCW1 ([facility]) Outpatient Attender: NU BOWIE MD 06/03/2019 12:[facility] [address] [place] [address] 05/28/2019 12:00:00 AM EDT eCW1 ([facility]) [facility] [address] [place] [address] 05/27/2019 12:00:00 AM EDT eCW1 ([facility]) [facility] [address] [place] [address] 05/27/2019 12:00:00 AM EDT eCW1 ([facility]) [facility] Jay [address] [place] [address] 05/22/2019 12:00:00 AM EDT eCW1 ([facility]) [facility] [address] [place] [phone] 05/21/2019 12:00:00 AM EDT eCW1 ([facility]) [facility] Jay [address] [place] [phone] 05/20/2019 12:00:00 AM EDT eCW1 ([facility]) [facility] [address] [place] [phone] 05/18/2019 12:00:00 AM EDT eCW1 ([facility]) [facility] Dermatology [address] [place] [phone] 05/15/2019 12:00:00 AM EDT eCW1 ([facility]) [facility] [address] [place] [phone] 05/12/2019 12:00:00 AM EDT eCW1 ([facility]) [facility] [address] [place] [phone] 05/12/2019 12:00:00 AM EDT eCW1 ([facility]) [facility] Jay [address] [place] [phone] 05/08/2019 12:00:00 AM EDT eCW1 ([facility]) [facility] [address] [facility] [place] [address] 05/05/2019 12:00:00 AM EDT eCW1 ([facility]) [facility] [address] [place] [phone] 05/01/2019 12:00:00 AM EDT eCW1 ([facility]) [facility] [address] [facility] [place] [address] 04/30/2019 12:00:00 AM EDT eCW1 ([facility]) [facility] [address] [place] [phone] 04/30/2019 12:00:00 AM EDT eCW1 ([facility]) [facility] [address] [place] [phone] 04/21/2019 12:00:00 AM EDT eCW1 ([facility]) [facility] [address] [place] [phone] 04/16/2019 12:00:00 AM EST eCW1 ([facility]) [facility] Jay [address] [place] [address] [place] [address] 04/15/2019 12:00:00 AM EST eCW1 ([facility]) [facility] [place] [address] [facility] [place] [address] 04/14/2019 12:00:00 AM EST eCW1 ([facility]) [facility] [address] [place] [phone] 04/09/2019 12:00:00 AM EST eCW1 ([facility]) [facility] [address] [place] [phone] 04/08/2019 12:00:00 AM EST eCW1 ([facility]) Outpatient Referrer: Brigid Poe NP 04/07/2019 08:15:00 AM EST [facility] [place] [address] [facility] [place] [phone] 04/07/2019 12:00:00 AM EST eCW1 ([facility]) [address] [phone] 04/06/2019 12:00:00 AM EST eCW1 ([facility]) [facility] [place] [address] [place] [phone] 04/02/2019 12:00:00 AM EST eCW1 ([facility]) Outpatient Attender: NU BOWIE MD [id number] 2019 12:00:00 AM EST - 04/20/2019 07:15:28 AM EDT Lesion of ulnar nerve, right upper limb [facility] Lesion of ulnar nerve, right upper limb [facility] [place] [address] [place] [phone] 03/31/2019 12:00:00 AM EST eCW1 ([facility]) [facility] [address] [place] [phone] 03/27/2019 12:00:00 AM EST eCW1 ([facility]) [facility] [address] [place] [phone] 03/26/2019 12:00:00 AM EST eCW1 ([facility]) [facility] [address] [place] [phone] 03/26/2019 12:00:00 AM EST eCW1 ([facility]) [facility] [address] [place] [phone] 03/25/2019 12:00:00 AM EST eCW1 ([facility]) [facility] [address] [place] [phone] 03/25/2019 12:00:00 AM EST eCW1 ([facility]) [facility] [address] [place] [phone] 03/23/2019 12:00:00 AM EST eCW1 ([facility]) [facility] [address] [place] [phone] 03/10/2019 12:00:00 AM EST eCW1 ([facility]) Outpatient Attender: NU BOWIE MD 03/05/2019 [facility] [address] [place] [phone] 03/02/2019 12:00:00 AM EST eCW1 ([facility]) [facility] [address] [place] [phone] 02/27/2019 12:00:00 AM EST eCW1 ([facility]) [facility] [address] [place] [phone] 02/24/2019 12:00:00 AM EST eCW1 ([facility]) [facility] [address] [place] [phone] 02/23/2019 12:00:00 AM EST eCW1 ([facility]) [facility] [address] [place] [phone] 02/16/2019 12:00:00 AM EST eCW1 ([facility]) [facility] [address] [place] [phone] 02/13/2019 12:00:00 AM EST eCW1 ([facility]) [facility] [address] [place] [phone] 02/13/2019 12:00:00 AM EST eCW1 ([facility]) [facility] [address] [place] [phone] 02/12/2019 12:00:00 AM EST eCW1 ([facility]) [facility] [address] [place] [phone] 01/23/2019 12:00:00 AM EST eCW1 ([facility]) [facility] [address] [place] [phone] 01/19/2019 12:00:00 AM EST eCW1 ([facility]) [facility] [address] [place] [phone] 01/14/2019 12:00:00 AM EST [facility]CW1 ([facility]) [facility] [address] [place] [phone] 01/12/2019 12:00:00 AM EST eCW1 ([facility]) [facility] [address] [place] [phone] 01/12/2019 12:00:00 AM EST eCW1 ([facility]) [facility] [address] [place] [phone] 01/07/2019 12:00:00 AM EST eCW1 ([facility]) [facility] [place] [address] [place] [phone] 12/31/2018 12:00:00 AM EST eCW1 ([facility]) [facility] [place] [address] [place] [phone] 12/31/2018 12:00:00 AM EST eCW1 ([facility]) Outpatient Attender: NU BOWIE MD [id number] 2018 12:00:00 AM EDT - 12/04/2018 04:58:06 PM EDT Impingement syndrome of left shoulder [facility] Impingement syndrome of left shoulder Outpatient Attender: NU BOWIE MD [id number] 2018 12:00:00 AM EDT - 09/11/2018 11:29:37 AM EDT Other specified postprocedural states [facility] Other specified postprocedural states Outpatient Attender: NU BOWIE MD [id number] 2018 12:00:00 AM EDT - 07/10/2018 03:37:50 PM EDT Complete rotator cuff tear or rupture of right shoulder, not specified as traumatic [facility] Complete rotator cuff tear or rupture of right shoulder, not specified as traumatic Immunizations Vaccine Date Status Description Data Source(s) influenza, recombinant, quadrIvalent,injectable, prese rvative free 01/15/2020 10:57:00 AM EST completed eCW1 ([facility]) influenza, recombinant, quadrIvalent,injectable, prese rvative free 01/15/2020 10:57:00 AM EST completed eCW1 ([facility]) influenza, recombinant, quadrIvalent,injectable, prese rvative free 01/15/2020 10:57:00 AM EST completed eCW1 ([facility]) influenza, recombinant, quadrIvalent,injectable, prese rvative free 01/15/2020 10:57:00 AM EST completed eCW1 ([facility]) influenza, recombinant, quadrIvalent,injectable, prese rvative free 01/15/2020 10:57:00 AM EST completed eCW1 ([facility]) influenza, recombinant, quadrIvalent,injectable, prese rvative free 01/15/2020 10:57:00 AM EST completed eCW1 ([facility]) influenza, recombinant, quadrIvalent,injectable, prese rvative free 01/15/2020 10:57:00 AM EST completed eCW1 ([facility]) influenza, recombinant, quadrIvalent,injectable, prese rvative free 01/15/2020 10:57:00 AM EST completed eCW1 ([facility]) influenza, recombinant, quadrIvalent,injectable, prese rvative free 01/15/2020 10:57:00 AM EST completed eCW1 ([facility]) influenza, recombinant, quadrIvalent,injectable, prese rvative free 01/15/2020 10:57:00 AM EST completed eCW1 ([facility]) influenza, recombinant, quadrIvalent,injectable, prese rvative free 01/15/2020 10:57:00 AM EST completed eCW1 ([facility]) influenza, recombinant, quadrIvalent,injectable, prese rvative free 01/15/2020 10:57:00 AM EST completed eCW1 ([facility]) influenza, recombinant, quadrIvalent,injectable, prese rvative free 01/15/2020 10:57:00 AM EST completed eCW1 ([facility]) influenza, recombinant, quadrIvalent,injectable, prese rvative free 01/15/2020 10:57:00 AM EST completed eCW1 ([facility]) influenza, recombinant, quadrIvalent,injectable, prese rvative free 01/15/2020 10:57:00 AM EST completed eCW1 ([facility]) influenza, recombinant, quadrIvalent,injectable, prese rvative free 01/15/2020 10:57:00 AM EST completed eCW1 ([facility]) influenza, recombinant, quadrIvalent,injectable, prese rvative free 01/15/2020 10:57:00 AM EST completed eCW1 ([facility]) influenza, recombinant, quadrIvalent,injectable, prese rvative free 01/15/2020 10:57:00 AM EST completed eCW1 ([facility]) influenza, recombinant, quadrIvalent,injectable, prese rvative free 01/15/2020 10:57:00 AM EST completed eCW1 ([facility]) influenza, recombinant, quadrIvalent,injectable, prese rvative free 01/15/2020 10:57:00 AM EST completed eCW1 ([facility]) influenza, recombinant, quadrIvalent,injectable, prese rvative free 01/15/2020 10:57:00 AM EST completed eCW1 ([facility]) influenza, recombinant, quadrIvalent,injectable, prese rvative free 01/15/2020 10:57:00 AM EST completed eCW1 ([facility]) influenza, recombinant, quadrIvalent,injectable, prese rvative free 01/15/2020 10:57:00 AM EST completed eCW1 ([facility]) Medications Medication Brand Name Start Date Product [...] {tablet_as_needed} active Percocet 10-3 25 MG eCW1 ([facility]) Morphine Sulfate 15 MG Oral Tablet Morphine Sulfate 15 MG 12:00:00 AM EST 1.0 {tablet_as_needed} active M orphine Sulfate 15 MG eCW1 ([facility]) Acetaminophen 325 MG / Oxycodone Hydroch loride 10 MG Oral Tablet [Percocet] Percocet 10-325 MG Percocet 10-325 MG 02/23/2020 12:00:00 AM EST 1.0 {tablet_as_needed} active Percocet 10-3 25 MG eCW1 ([facility]) Morphine Sulfate 15 MG Oral Tablet Morphine Sulfate 15 MG 12:00:00 AM EST 1.0 {tablet_as_needed} active M orphine Sulfate 15 MG eCW1 ([facility]) Acetaminophen 325 MG / Oxycodone Hydroch loride 10 MG Oral Tablet [Percocet] Percocet 10-325 MG Percocet 10-325 MG 02/23/2020 12:00:00 AM EST 1.0 {tablet_as_needed} active Percocet 10-3 25 MG eCW1 ([facility]) Morphine Sulfate 15 MG Oral Tablet Morphine Sulfate 15 MG 12:00:00 AM EST 1.0 {tablet_as_needed} active M orphine Sulfate 15 MG eCW1 ([facility]) Budesonide 180 MCG/ACT UNK 02/16/2020 12:00:00 AM EST 1.0 {puff } active Budesonide 180 MCG/ACT eCW1 ([facility]) Budesonide 180 MCG/ACT UNK 02/16/2020 12:00:00 AM EST 1.0 {puff } active Budesonide 180 MCG/ACT eCW1 ([facility]) Budesonide 180 MCG/ACT UNK 02/16/2020 12:00:00 AM EST 1.0 {puff } active Budesonide 180 MCG/ACT eCW1 ([facility]) 2 mg 02/09/2020 12:00:00 AM EST tablet [...] {ml_as_needed} active Ipratropium-Albuterol 0.5-2.5 (3) MG/3ML eCW1 ([facility]) Albuterol 0.833 MG/ML / Ipratropium Brom krish 0.167 MG/ML Inhalant Solution Ipratropium-Albuterol 0.5-2.5 (3) MG/3ML Ipratropium-Albuterol 0.5-2.5 (3) MG/3ML 01/28/2020 12:00:00 AM EST 3.0 {ml_as_needed} active Ipratropium-Albuterol 0.5-2.5 (3) MG/3ML eCW1 ([facility]) Albuterol 0.833 MG/ML / Ipratropium Brom krish 0.167 MG/ML Inhalant Solution Ipratropium-Albuterol 0.5-2.5 (3) MG/3ML Ipratropium-Albuterol 0.5-2.5 (3) MG/3ML 01/28/2020 12:00:00 AM EST 3.0 {ml_as_needed} active Ipratropium-Albuterol 0.5-2.5 (3) MG/3ML eCW1 ([facility]) Albuterol 0.833 MG/ML / Ipratropium Brom krish 0.167 MG/ML Inhalant Solution Ipratropium-Albuterol 0.5-2.5 (3) MG/3ML Ipratropium-Albuterol 0.5-2.5 (3) MG/3ML 01/28/2020 12:00:00 AM EST 3.0 {ml_as_needed} active Ipratropium-Albuterol 0.5-2.5 (3) MG/3ML eCW1 ([facility]) Albuterol 0.833 MG/ML / Ipratropium Brom krish 0.167 MG/ML Inhalant Solution Ipratropium-Albuterol 0.5-2.5 (3) MG/3ML Ipratropium-Albuterol 0.5-2.5 (3) MG/3ML 01/28/2020 12:00:00 AM EST 3.0 {ml_as_needed} active Ipratropium-Albuterol 0.5-2.5 (3) MG/3ML eCW1 ([facility]) Albuterol 0.833 MG/ML / Ipratropium Brom krish 0.167 MG/ML Inhalant Solution Ipratropium-Albuterol 0.5-2.5 (3) MG/3ML Ipratropium-Albuterol 0.5-2.5 (3) MG/3ML 01/28/2020 12:00:00 AM EST 3.0 {ml_as_needed} active Ipratropium-Albuterol 0.5-2.5 (3) MG/3ML eCW1 ([facility]) Albuterol 0.833 MG/ML / Ipratropium Brom krish 0.167 MG/ML Inhalant Solution Ipratropium-Albuterol 0.5-2.5 (3) MG/3ML Ipratropium-Albuterol 0.5-2.5 (3) MG/3ML 01/28/2020 12:00:00 AM EST 3.0 {ml_as_needed} active Ipratropium-Albuterol 0.5-2.5 (3) MG/3ML eCW1 ([facility]) Albuterol 0.833 MG/ML / Ipratropium Brom krish 0.167 MG/ML Inhalant Solution Ipratropium-Albuterol 0.5-2.5 (3) MG/3ML Ipratropium-Albuterol 0.5-2.5 (3) MG/3ML 01/28/2020 12:00:00 AM EST 3.0 {ml_as_needed} active Ipratropium-Albuterol 0.5-2.5 (3) MG/3ML eCW1 ([facility]) Albuterol 0.833 MG/ML / Ipratropium Brom krish 0.167 MG/ML Inhalant Solution Ipratropium-Albuterol 0.5-2.5 (3) MG/3ML Ipratropium-Albuterol 0.5-2.5 (3) MG/3ML 01/28/2020 12:00:00 AM EST 3.0 {ml_as_needed} active Ipratropium-Albuterol 0.5-2.5 (3) MG/3ML eCW1 ([facility]) Morphine Sulfate 15 MG Extended Release Oral Tablet Mo rphine Sulfate ER 15 MG Morphine Sulfate ER 15 MG 01/27/2020 12:00:00 AM EST 1.0 {tablet} active Morphine Sulfate ER 15 MG eCW1 ( [facility]) Morphine Sulfate 15 MG Oral Tablet Morphine Sulfate 15 MG 12:00:00 AM EST 1.0 {tablet_as_needed} active M orphine Sulfate 15 MG eCW1 ([facility]) Morphine Sulfate 15 MG Oral Tablet Morphine Sulfate 15 MG 12:00:00 AM EST 1.0 {tablet_as_needed} active M orphine Sulfate 15 MG eCW1 ([facility]) Morphine Sulfate ER 15 MG UNK 01/27/2020 12:00:00 AM EST 1.0 {tablet} active Morphine Sulfate ER 15 MG eCW1 ( [facility]) Morphine Sulfate ER 15 MG UNK 01/27/2020 12:00:00 AM EST 1.0 {tablet} active Morphine Sulfate ER 15 MG eCW1 ( [facility]) Morphine Sulfate 15 MG Oral Tablet Morphine Sulfate 15 MG 12:00:00 AM EST 1.0 {tablet_as_needed} active M orphine Sulfate 15 MG eCW1 ([facility]) Morphine Sulfate 15 MG Oral Tablet Morphine Sulfate 15 MG 12:00:00 AM EST 1.0 {tablet_as_needed} active M orphine Sulfate 15 MG eCW1 ([facility]) Morphine Sulfate 15 MG Oral Tablet Morphine Sulfate 15 MG 12:00:00 AM EST 1.0 {tablet_as_needed} active M orphine Sulfate 15 MG eCW1 ([facility]) Morphine Sulfate 15 MG Oral Tablet Morphine Sulfate 15 MG 12:00:00 AM EST 1.0 {tablet_as_needed} active M orphine Sulfate 15 MG eCW1 ([facility]) Morphine Sulfate 15 MG Oral Tablet Morphine Sulfate 15 MG 12:00:00 AM EST 1.0 {tablet_as_needed} active M orphine Sulfate 15 MG eCW1 ([facility]) 15 mg 01/27/2020 12:00:00 AM EST tablet [...] Morphine Sulfate ER 15 MG eCW1 ( [facility]) Morphine Sulfate 15 MG Oral Tablet Morphine Sulfate 15 MG 12:00:00 AM EST 1.0 {tablet_as_needed} active M orphine Sulfate 15 MG eCW1 ([facility]) Morphine Sulfate ER 15 MG UNK 01/26/2020 12:00:00 AM EST 1.0 {tablet} active Morphine Sulfate ER 15 MG eCW1 ( [facility]) Acetaminophen 325 MG / Oxycodone Hydroch loride 10 MG Oral Tablet [Percocet] Percocet 10-325 MG Percocet 10-325 MG 01/22/2020 12:00:00 AM EST 1.0 {tablet_as_needed} active Percocet 10-3 25 MG eCW1 ([facility]) Acetaminophen 325 MG / Oxycodone Hydroch loride 10 MG Oral Tablet [Percocet] Percocet 10-325 MG Percocet 10-325 MG 01/22/2020 12:00:00 AM EST 1.0 {tablet_as_needed} suspended Percocet 10 -325 MG eCW1 ([facility]) Acetaminophen 325 MG / Oxycodone Hydroch loride 10 MG Oral Tablet [Percocet] Percocet 10-325 MG Percocet 10-325 MG 01/22/2020 12:00:00 AM EST 1.0 {tablet_as_needed} active Percocet 10-3 25 MG eCW1 ([facility]) 10-325 mg 01/22/2020 12:00:00 AM EST tablet [...] {tablet_as_needed} suspended Percocet 10 -325 MG eCW1 ([facility]) Acetaminophen 325 MG / Oxycodone Hydroch loride 10 MG Oral Tablet [Percocet] Percocet 10-325 MG Percocet 10-325 MG 01/22/2020 12:00:00 AM EST 1.0 {tablet_as_needed} suspended Percocet 10 -325 MG eCW1 ([facility]) 2 mg 01/22/2020 12:00:00 AM EST tablet [...] {tablet_as_needed} active Percocet 10-3 25 MG eCW1 ([facility]) Acetaminophen 325 MG / Oxycodone Hydroch loride 10 MG Oral Tablet [Percocet] Percocet 10-325 MG Percocet 10-325 MG 01/22/2020 12:00:00 AM EST 1.0 {tablet_as_needed} suspended Percocet 10 -325 MG eCW1 ([facility]) Acetaminophen 325 MG / Oxycodone Hydroch loride 10 MG Oral Tablet [Percocet] Percocet 10-325 MG Percocet 10-325 MG 01/22/2020 12:00:00 AM EST 1.0 {tablet_as_needed} active Percocet 10-3 25 MG eCW1 ([facility]) Acetaminophen 325 MG / Oxycodone Hydroch loride 10 MG Oral Tablet [Percocet] Percocet 10-325 MG Percocet 10-325 MG 01/22/2020 12:00:00 AM EST 1.0 {tablet_as_needed} active Percocet 10-3 25 MG eCW1 ([facility]) Acetaminophen 325 MG / Oxycodone Hydroch loride 10 MG Oral Tablet [Percocet] Percocet 10-325 MG Percocet 10-325 MG 01/22/2020 12:00:00 AM EST 1.0 {tablet_as_needed} suspended Percocet 10 -325 MG eCW1 ([facility]) Acetaminophen 325 MG / Oxycodone Hydroch loride 10 MG Oral Tablet [Percocet] Percocet 10-325 MG Percocet 10-325 MG 01/22/2020 12:00:00 AM EST 1.0 {tablet_as_needed} suspended Percocet 10 -325 MG eCW1 ([facility]) Acetaminophen 325 MG / Oxycodone Hydroch loride 10 MG Oral Tablet [Percocet] Percocet 10-325 MG Percocet 10-325 MG 01/22/2020 12:00:00 AM EST 1.0 {tablet_as_needed} active Percocet 10-3 25 MG eCW1 ([facility]) Acetaminophen 325 MG / Oxycodone Hydroch loride 10 MG Oral Tablet [Percocet] Percocet 10-325 MG Percocet 10-325 MG 01/22/2020 12:00:00 AM EST 1.0 {tablet_as_needed} active Percocet 10-3 25 MG eCW1 ([facility]) Morphine Sulfate ER 15 MG UNK 01/20/2020 12:00:00 AM EST 1.0 {tablet} active Morphine Sulfate ER 15 MG eCW1 ( [facility]) Morphine Sulfate ER 15 MG UNK 01/20/2020 12:00:00 AM EST 1.0 {tablet} active Morphine Sulfate ER 15 MG eCW1 ( [facility]) Morphine Sulfate ER 15 MG UNK 01/20/2020 12:00:00 AM EST 1.0 {tablet} active Morphine Sulfate ER 15 MG eCW1 ( [facility]) Morphine Sulfate ER 15 MG UNK 01/20/2020 12:00:00 AM EST 1.0 {tablet} active Morphine Sulfate ER 15 MG eCW1 ( [facility]) Morphine Sulfate ER 15 MG UNK 01/20/2020 12:00:00 AM EST 1.0 {tablet} active Morphine Sulfate ER 15 MG eCW1 ( [facility]) Morphine Sulfate ER 15 MG UNK 01/20/2020 12:00:00 AM EST 1.0 {tablet} active Morphine Sulfate ER 15 MG eCW1 ( [facility]) 1 gram 01/20/2020 12:00:00 AM EST tablet 90 TAKE ONE TABLET BY MOUTH THREE TIMES A DAY ON EMPTY STOMACH BEFORE MEAL TAKE ONE TABLET BY MOUTH THREE TIMES A DAY ON EMPTY STOMACH BEFORE MEAL SOLD: 01/21/2020 [facility] Morphine Sulfate ER 15 MG UNK 01/20/2020 12:00:00 AM EST 1.0 {tablet} active Morphine Sulfate ER 15 MG eCW1 ( [facility]) 40 mg 01/16/2020 12:00:00 AM EST capsule,delayed [...] {capsule} acti ve Cymbalta 30 MG eCW1 ([facility]) duloxetine 30 MG Delayed Release Oral Capsule [Cymbalt a] Cymbalta 30 MG Cymbalta 30 MG 01/13/2020 12:00:00 AM EST 1.0 {capsule} acti ve Cymbalta 30 MG eCW1 ([facility]) 30 mg 01/13/2020 12:00:00 AM EST capsule,delayed release (DR/EC) 60 TAKE ONE CAPSULE BY MOUTH TWICE A DAY TAKE ONE CAPSULE BY MOUTH TWICE A DAY SOLD: 01/20/2020 [facility] duloxetine 30 MG Delayed Release Oral Capsule [Cymbalt a] Cymbalta 30 MG Cymbalta 30 MG 01/13/2020 12:00:00 AM EST 1.0 {capsule} acti ve Cymbalta 30 MG eCW1 ([facility]) duloxetine 30 MG Delayed Release Oral Capsule [Cymbalt a] Cymbalta 30 MG Cymbalta 30 MG 01/13/2020 12:00:00 AM EST 1.0 {capsule} acti ve Cymbalta 30 MG eCW1 ([facility]) 30 mg 01/12/2020 12:00:00 AM EST capsule,delayed [...] active Spiriva Resp imat 1.25 MCG/ACT eCW1 ([facility]) Spiriva Respimat 1.25 MCG/ACT Spiriva Respimat 1.25 MCG/ACT 12/29/2019 12:00:00 AM EST 2.0 {puffs} active Spiriva Resp imat 1.25 MCG/ACT eCW1 ([facility]) Spiriva Respimat 1.25 MCG/ACT Spiriva Respimat 1.25 MCG/ACT 12/29/2019 12:00:00 AM EST 2.0 {puffs} suspended Spiriva R espimat 1.25 MCG/ACT eCW1 ([facility]) Spiriva Respimat 1.25 MCG/ACT Spiriva Respimat 1.25 MCG/ACT 12/29/2019 12:00:00 AM EST 2.0 {puffs} active Spiriva Resp imat 1.25 MCG/ACT eCW1 ([facility]) Spiriva Respimat 1.25 MCG/ACT Spiriva Respimat 1.25 MCG/ACT 12/29/2019 12:00:00 AM EST 2.0 {puffs} active Spiriva Resp imat 1.25 MCG/ACT eCW1 ([facility]) Spiriva Respimat 1.25 MCG/ACT Spiriva Respimat 1.25 MCG/ACT 12/29/2019 12:00:00 AM EST 2.0 {puffs} active Spiriva Resp imat 1.25 MCG/ACT eCW1 ([facility]) Spiriva Respimat 1.25 MCG/ACT Spiriva Respimat 1.25 MCG/ACT 12/29/2019 12:00:00 AM EST 2.0 {puffs} active Spiriva Resp imat 1.25 MCG/ACT eCW1 ([facility]) 250 mg 12/29/2019 12:00:00 AM EST tablet 30 TAKE ONE-HALF TABLET BY MOUTH TWICE A DAY TAKE ONE-HALF TABLET BY MOUTH TWICE A DAY SOLD: 12/29/2019 [facility] Spiriva Respimat 1.25 MCG/ACT Spiriva Respimat 1.25 MCG/ACT 12/29/2019 12:00:00 AM EST 2.0 {puffs} active Spiriva Resp imat 1.25 MCG/ACT eCW1 ([facility]) Spiriva Respimat 1.25 MCG/ACT Spiriva Respimat 1.25 MCG/ACT 12/29/2019 12:00:00 AM EST 2.0 {puffs} active Spiriva Resp imat 1.25 MCG/ACT eCW1 ([facility]) 20 mg 12/29/2019 12:00:00 AM EST tablet 90 TAKE ONE TABLET BY MOUTH THREE TIMES A DAY TAKE ONE TABLET BY MOUTH THREE TIMES A DAY SOLD: 01/26/2020 [facility] Spiriva Respimat 1.25 MCG/ACT Spiriva Respimat 1.25 MCG/ACT 12/29/2019 12:00:00 AM EST 2.0 {puffs} active Spiriva Resp imat 1.25 MCG/ACT eCW1 ([facility]) Spiriva Respimat 1.25 MCG/ACT Spiriva Respimat 1.25 MCG/ACT 12/29/2019 12:00:00 AM EST 2.0 {puffs} suspended Spiriva R espimat 1.25 MCG/ACT eCW1 ([facility]) Spiriva Respimat 1.25 MCG/ACT Spiriva Respimat 1.25 MCG/ACT 12/29/2019 12:00:00 AM EST 2.0 {puffs} suspended Spiriva R espimat 1.25 MCG/ACT eCW1 ([facility]) Spiriva Respimat 1.25 MCG/ACT Spiriva Respimat 1.25 MCG/ACT 12/29/2019 12:00:00 AM EST 2.0 {puffs} active Spiriva Resp imat 1.25 MCG/ACT eCW1 ([facility]) Spiriva Respimat 1.25 MCG/ACT Spiriva Respimat 1.25 MCG/ACT 12/29/2019 12:00:00 AM EST 2.0 {puffs} active Spiriva Resp imat 1.25 MCG/ACT eCW1 (Formerly [facility]) Spiriva Respimat 1.25 MCG/ACT Spiriva Respimat 1.25 MCG/ACT 12/29/2019 12:00:00 AM EST 2.0 {puffs} active Spiriva Resp imat 1.25 MCG/ACT eCW1 (Formerly [facility]) Spiriva Respimat 1.25 MCG/ACT Spiriva Respimat 1.25 MCG/ACT 12/29/2019 12:00:00 AM EST 2.0 {puffs} suspended Spiriva R espimat 1.25 MCG/ACT eCW1 (Formerly [facility]) Spiriva Respimat 1.25 MCG/ACT Spiriva Respimat 1.25 MCG/ACT 12/29/2019 12:00:00 AM EST 2.0 {puffs} suspended Spiriva R espimat 1.25 MCG/ACT eCW1 (Formerly [facility]) Spiriva Respimat 1.25 MCG/ACT Spiriva Respimat 1.25 MCG/ACT 12/29/2019 12:00:00 AM EST 2.0 {puffs} suspended Spiriva R espimat 1.25 MCG/ACT eCW1 (Formerly [facility]) Spiriva Respimat 1.25 MCG/ACT Spiriva Respimat 1.25 MCG/ACT 12/29/2019 12:00:00 AM EST 2.0 {puffs} active Spiriva Resp imat 1.25 MCG/ACT eCW1 (Formerly [facility]) Spiriva Respimat 1.25 MCG/ACT Spiriva Respimat 1.25 MCG/ACT 12/29/2019 12:00:00 AM EST 2.0 {puffs} active Spiriva Resp imat 1.25 MCG/ACT eCW1 (Formerly [facility]) Spiriva Respimat 1.25 MCG/ACT Spiriva Respimat 1.25 MCG/ACT 12/29/2019 12:00:00 AM EST 2.0 {puffs} active Spiriva Resp imat 1.25 MCG/ACT eCW1 (Formerly [facility]) Spiriva Respimat 1.25 MCG/ACT Spiriva Respimat 1.25 MCG/ACT 12/29/2019 12:00:00 AM EST 2.0 {puffs} active Spiriva Resp imat 1.25 MCG/ACT eCW1 (Formerly [facility]) Spiriva Respimat 1.25 MCG/ACT Spiriva Respimat 1.25 MCG/ACT 12/29/2019 12:00:00 AM EST 2.0 {puffs} active Spiriva Resp imat 1.25 MCG/ACT eCW1 (Formerly [facility]) Spiriva Respimat 1.25 MCG/ACT Spiriva Respimat 1.25 MCG/ACT 12/29/2019 12:00:00 AM EST 2.0 {puffs} active Spiriva Resp imat 1.25 MCG/ACT eCW1 (Formerly [facility]) Spiriva Respimat 1.25 MCG/ACT Spiriva Respimat 1.25 MCG/ACT 12/29/2019 12:00:00 AM EST 2.0 {puffs} suspended Spiriva R espimat 1.25 MCG/ACT eCW1 (Formerly [facility]) Spiriva Respimat 1.25 MCG/ACT Spiriva Respimat 1.25 MCG/ACT 12/29/2019 12:00:00 AM EST 2.0 {puffs} active Spiriva Resp imat 1.25 MCG/ACT eCW1 (Formerly [facility]) Spiriva Respimat 1.25 MCG/ACT Spiriva Respimat 1.25 MCG/ACT 12/29/2019 12:00:00 AM EST 2.0 {puffs} active Spiriva Resp imat 1.25 MCG/ACT eCW1 (Formerly [facility]) 20 mg 12/29/2019 12:00:00 AM EST tablet 90 TAKE ONE TABLET BY MOUTH THREE TIMES A DAY TAKE ONE TABLET BY MOUTH THREE TIMES A DAY SOLD: 12/30/2019 [facility] Spiriva Respimat 1.25 MCG/ACT Spiriva Respimat 1.25 MCG/ACT 12/29/2019 12:00:00 AM EST 2.0 {puffs} active Spiriva Resp imat 1.25 MCG/ACT eCW1 (Formerly [facility]) Spiriva Respimat 1.25 MCG/ACT Spiriva Respimat 1.25 MCG/ACT 12/29/2019 12:00:00 AM EST 2.0 {puffs} active Spiriva Resp imat 1.25 MCG/ACT eCW1 (Formerly [facility]) Spiriva Respimat 1.25 MCG/ACT Spiriva Respimat 1.25 MCG/ACT 12/29/2019 12:00:00 AM EST 2.0 {puffs} active Spiriva Resp imat 1.25 MCG/ACT eCW1 (Formerly [facility]) Spiriva Respimat 1.25 MCG/ACT Spiriva Respimat 1.25 MCG/ACT 12/29/2019 12:00:00 AM EST 2.0 {puffs} suspended Spiriva R espimat 1.25 MCG/ACT eCW1 (Formerly [facility]) Spiriva Respimat 1.25 MCG/ACT Spiriva Respimat 1.25 MCG/ACT 12/29/2019 12:00:00 AM EST 2.0 {puffs} active Spiriva Resp imat 1.25 MCG/ACT eCW1 (Formerly [facility]) Spiriva Respimat 1.25 MCG/ACT Spiriva Respimat 1.25 MCG/ACT 12/29/2019 12:00:00 AM EST 2.0 {puffs} active Spiriva Resp imat 1.25 MCG/ACT eCW1 (Formerly [facility]) Spiriva Respimat 1.25 MCG/ACT Spiriva Respimat 1.25 MCG/ACT 12/29/2019 12:00:00 AM EST 2.0 {puffs} suspended Spiriva R espimat 1.25 MCG/ACT eCW1 (Formerly [facility]) Spiriva Respimat 1.25 MCG/ACT Spiriva Respimat 1.25 MCG/ACT 12/29/2019 12:00:00 AM EST 2.0 {puffs} active Spiriva Resp imat 1.25 MCG/ACT eCW1 (Formerly [facility]) Spiriva Respimat 1.25 MCG/ACT Spiriva Respimat 1.25 MCG/ACT 12/29/2019 12:00:00 AM EST 2.0 {puffs} active Spiriva Resp imat 1.25 MCG/ACT eCW1 (Formerly [facility]) 2 mg 12/25/2019 12:00:00 AM EST tablet [...] 1.0 {tablet_on_an_empty_stomach} active Sucralfate 1 GM eCW1 (Formerly [facility]) Acetaminophen 325 MG / Oxycodone Hydroch loride 10 MG Oral Tablet [Percocet] Percocet 10-325 MG Percocet 10-325 MG 12/22/2019 12:00:00 AM EST 1.0 {tablet_as_needed} active Percocet 10-3 25 MG eCW1 (Formerly [facility]) Acetaminophen 325 MG / Oxycodone Hydroch loride 10 MG Oral Tablet [Percocet] Percocet 10-325 MG Percocet 10-325 MG 12/22/2019 12:00:00 AM EST 1.0 {tablet_as_needed} active Percocet 10-3 25 MG eCW1 (Formerly [facility]) Acetaminophen 325 MG / Oxycodone Hydroch loride 10 MG Oral Tablet [Percocet] Percocet 10-325 MG Percocet 10-325 MG 12/22/2019 12:00:00 AM EST 1.0 {tablet_as_needed} active Percocet 10-3 25 MG eCW1 (Formerly [facility]) Acetaminophen 325 MG / Oxycodone Hydroch loride 10 MG Oral Tablet [Percocet] Percocet 10-325 MG Percocet 10-325 MG 12/22/2019 12:00:00 AM EST 1.0 {tablet_as_needed} active Percocet 10-3 25 MG eCW1 (Formerly [facility]) Omeprazole 40 MG Delayed Release Oral Capsule Omeprazole 40 MG 12/22/2019 12:00:00 AM EST active Omeprazo le 40 MG eCW1 (Formerly [facility]) Acetaminophen 325 MG / Oxycodone Hydroch loride 10 MG Oral Tablet [Percocet] Percocet 10-325 MG Percocet 10-325 MG 12/22/2019 12:00:00 AM EST 1.0 {tablet_as_needed} active Percocet 10-3 25 MG eCW1 (Formerly [facility]) Omeprazole 40 MG Delayed Release Oral Capsule Omeprazole 40 MG 12/22/2019 12:00:00 AM EST active Omeprazo le 40 MG eCW1 (Formerly [facility]) Acetaminophen 325 MG / Oxycodone Hydroch loride 10 MG Oral Tablet [Percocet] Percocet 10-325 MG Percocet 10-325 MG 12/22/2019 12:00:00 AM EST 1.0 {tablet_as_needed} active Percocet 10-3 25 MG eCW1 (Formerly [facility]) Sucralfate 1000 MG Oral Tablet Sucralfate 1 GM Sucralfate 1 12/22/2019 12:00:00 AM EST 1.0 {tablet_on_an_empty_stomach} active Sucralfate 1 GM eCW1 (Formerly [facility]) Sucralfate 1000 MG Oral Tablet Sucralfate 1 GM Sucralfate 1 GM 12/22/2019 12:00:00 AM EST 1.0 {tablet_on_an_empty_stomach} active Sucralfate 1 GM eCW1 (Formerly [facility]) Omeprazole 40 MG Delayed Release Oral Capsule Omeprazole 40 MG 12/22/2019 12:00:00 AM EST active Omeprazo le 40 MG eCW1 (Formerly [facility]) Sucralfate 1000 MG Oral Tablet Sucralfate 1 GM Sucralfate 1 GM 12/22/2019 12:00:00 AM EST 1.0 {tablet_on_an_empty_stomach} active Sucralfate 1 GM eCW1 (Formerly [facility]) Sucralfate 1000 MG Oral Tablet Sucralfate 1 GM Sucralfate 1 GM 12/22/2019 12:00:00 AM EST 1.0 {tablet_on_an_empty_stomach} active Sucralfate 1 GM eCW1 (Formerly [facility]) Sucralfate 1000 MG Oral Tablet Sucralfate 1 GM Sucralfate 1 GM 12/22/2019 12:00:00 AM EST 1.0 {tablet_on_an_empty_stomach} active Sucralfate 1 GM eCW1 (Formerly [facility]) Acetaminophen 325 MG / Oxycodone Hydroch loride 10 MG Oral Tablet [Percocet] Percocet 10-325 MG Percocet 10-325 MG 12/22/2019 12:00:00 AM EST 1.0 {tablet_as_needed} active Percocet 10-3 25 MG eCW1 (Formerly [facility]) Acetaminophen 325 MG / Oxycodone Hydroch loride 10 MG Oral Tablet [Percocet] Percocet 10-325 MG Percocet 10-325 MG 12/22/2019 12:00:00 AM EST 1.0 {tablet_as_needed} active Percocet 10-3 25 MG eCW1 (Formerly [facility]) Omeprazole 40 MG Delayed Release Oral Capsule Omeprazole 40 MG 12/22/2019 12:00:00 AM EST active Omeprazo le 40 MG eCW1 (Formerly [facility]) Sucralfate 1000 MG Oral Tablet Sucralfate 1 GM Sucralfate 1 GM 12/22/2019 12:00:00 AM EST 1.0 {tablet_on_an_empty_stomach} active Sucralfate 1 GM eCW1 (Formerly [facility]) Sucralfate 1000 MG Oral Tablet Sucralfate 1 GM Sucralfate 1 GM 12/22/2019 12:00:00 AM EST 1.0 {tablet_on_an_empty_stomach} active Sucralfate 1 GM eCW1 (Formerly [facility]) Omeprazole 40 MG Delayed Release Oral Capsule Omeprazole 40 MG 12/22/2019 12:00:00 AM EST active Omeprazo le 40 MG eCW1 (Formerly [facility]) Acetaminophen 325 MG / Oxycodone Hydroch loride 10 MG Oral Tablet [Percocet] Percocet 10-325 MG Percocet 10-325 MG 12/22/2019 12:00:00 AM EST 1.0 {tablet_as_needed} active Percocet 10-3 25 MG eCW1 (Formerly [facility]) Omeprazole 40 MG Delayed Release Oral Capsule Omeprazole 40 MG 12/22/2019 12:00:00 AM EST active Omeprazo le 40 MG eCW1 (Former[facility]) Omeprazole 40 MG Delayed Release Oral Capsule Omeprazole 40 MG 12/22/2019 12:00:00 AM EST active Omeprazo le 40 MG eCW1 (Former[facility]) Sucralfate 1000 MG Oral Tablet Sucralfate 1 GM Sucralfate 1 GM 12/22/2019 12:00:00 AM EST 1.0 {tablet_on_an_empty_stomach} active Sucralfate 1 GM eCW1 (Formerly [facility]) Sucralfate 1000 MG Oral Tablet Sucralfate 1 GM Sucralfate 1 GM 12/22/2019 12:00:00 AM EST 1.0 {tablet_on_an_empty_stomach} active Sucralfate 1 GM eCW1 (Formerly [facility]) Acetaminophen 325 MG / Oxycodone Hydroch loride 10 MG Oral Tablet [Percocet] Percocet 10-325 MG Percocet 10-325 MG 12/22/2019 12:00:00 AM EST 1.0 {tablet_as_needed} active Percocet 10-3 25 MG eCW1 (Former[facility]) Acetaminophen 325 MG / Oxycodone Hydroch loride 10 MG Oral Tablet [Percocet] Percocet 10-325 MG Percocet 10-325 MG 12/22/2019 12:00:00 AM EST 1.0 {tablet_as_needed} active Percocet 10-3 25 MG eCW1 (Former[facility]) Omeprazole 40 MG Delayed Release Oral Capsule Omeprazole 40 MG 12/22/2019 12:00:00 AM EST active Omeprazo le 40 MG eCW1 (Formerly [facility]) 40 mg 12/22/2019 12:00:00 AM EST capsule,delayed release (DR/EC) 30 TAKE 1 CAPSULE BY MOUTH 30 MINS. BEFORE MORNING MEAL TAKE 1 CAPSULE BY MOUTH 30 MINS. BEFORE MORNING MEAL SOLD: 12/22/2019 [facility] Omeprazole 40 MG Delayed Release Oral Capsule Omeprazole 40 MG 12/22/2019 12:00:00 AM EST active Omeprazo le 40 MG eCW1 (Formerly [facility]) Omeprazole 40 MG Delayed Release Oral Capsule Omeprazole 40 MG 12/22/2019 12:00:00 AM EST active Omeprazo le 40 MG eCW1 (Formerly [facility]) Sucralfate 1000 MG Oral Tablet Sucralfate 1 GM Sucralfate 1 GM 12/22/2019 12:00:00 AM EST 1.0 {tablet_on_an_empty_stomach} active Sucralfate 1 GM eCW1 (Formerly [facility]) Omeprazole 40 MG Delayed Release Oral Capsule Omeprazole 40 MG 12/22/2019 12:00:00 AM EST active Omeprazo le 40 MG eCW1 (Formerly [facility]) Acetaminophen 325 MG / Oxycodone Hydroch loride 10 MG Oral Tablet [Percocet] Percocet 10-325 MG Percocet 10-325 MG 12/22/2019 12:00:00 AM EST 1.0 {tablet_as_needed} active Percocet 10-3 25 MG eCW1 (Former[facility]) Sucralfate 1000 MG Oral Tablet Sucralfate 1 GM Sucralfate 1 GM 12/22/2019 12:00:00 AM EST 1.0 {tablet_on_an_empty_stomach} active Sucralfate 1 GM eCW1 (Formerly [facility]) 1 gram 12/22/2019 12:00:00 AM EST tablet 90 TAKE 1 TABLET BY MOUTH ON AN EMPTY STOMACH BEFORE EACH MEAL TAKE 1 TABLET BY MOUTH ON AN EMPTY STOMA CH BEFORE EACH MEAL SOLD: 12/22/2019 [facility] Sucralfate 1000 MG Oral Tablet Sucralfate 1 GM Sucralfate 1 GM 12/22/2019 12:00:00 AM EST 1.0 {tablet_on_an_empty_stomach} active Sucralfate 1 GM eCW1 (Formerly [facility]) Acetaminophen 325 MG / Oxycodone Hydroch loride 10 MG Oral Tablet [Percocet] Percocet 10-325 MG Percocet 10-325 MG 12/22/2019 12:00:00 AM EST 1.0 {tablet_as_needed} active Percocet 10-3 25 MG eCW1 (Former[facility]) Sucralfate 1000 MG Oral Tablet Sucralfate 1 GM Sucralfate 1 GM 12/22/2019 12:00:00 AM EST 1.0 {tablet_on_an_empty_stomach} active Sucralfate 1 GM eCW1 (Formerly [facility]) Omeprazole 40 MG Delayed Release Oral Capsule Omeprazole 40 MG 12/22/2019 12:00:00 AM EST active Omeprazo le 40 MG eCW1 (Former[facility]) Sucralfate 1000 MG Oral Tablet Sucralfate 1 GM Sucralfate 1 GM 12/22/2019 12:00:00 AM EST 1.0 {tablet_on_an_empty_stomach} active Sucralfate 1 GM eCW1 (Former[facility]) Sucralfate 1000 MG Oral Tablet Sucralfate 1 GM Sucralfate 1 GM 12/22/2019 12:00:00 AM EST 1.0 {tablet_on_an_empty_stomach} active Sucralfate 1 GM eCW1 (Former[facility]) Sucralfate 1000 MG Oral Tablet Sucralfate 1 GM Sucralfate 1 GM 12/22/2019 12:00:00 AM EST 1.0 {tablet_on_an_empty_stomach} active Sucralfate 1 GM eCW1 (Former[facility]) Acetaminophen 325 MG / Oxycodone Hydroch loride 10 MG Oral Tablet [Percocet] Percocet 10-325 MG Percocet 10-325 MG 12/22/2019 12:00:00 AM EST 1.0 {tablet_as_needed} active Percocet 10-3 25 MG eCW1 (Former[facility]) Omeprazole 40 MG Delayed Release Oral Capsule Omeprazole 40 MG 12/22/2019 12:00:00 AM EST active Omeprazo le 40 MG eCW1 (Former[facility]) Sucralfate 1000 MG Oral Tablet Sucralfate 1 GM Sucralfate 1 GM 12/22/2019 12:00:00 AM EST 1.0 {tablet_on_an_empty_stomach} active Sucralfate 1 GM eCW1 (Formerly [facility]) Omeprazole 40 MG Delayed Release Oral Capsule Omeprazole 40 MG 12/22/2019 12:00:00 AM EST active Omeprazo le 40 MG eCW1 (Formerly [facility]) Omeprazole 40 MG Delayed Release Oral Capsule Omeprazole 40 MG 12/22/2019 12:00:00 AM EST active Omeprazo le 40 MG eCW1 (Formerly [facility]) Omeprazole 40 MG Delayed Release Oral Capsule Omeprazole 40 MG 12/22/2019 12:00:00 AM EST active Omeprazo le 40 MG eCW1 (Formerly [facility]) Acetaminophen 325 MG / Oxycodone Hydroch loride 10 MG Oral Tablet [Percocet] Percocet 10-325 MG Percocet 10-325 MG 12/22/2019 12:00:00 AM EST 1.0 {tablet_as_needed} active Percocet 10-3 25 MG eCW1 (Formerly [facility]) Omeprazole 40 MG Delayed Release Oral Capsule Omeprazole 40 MG 12/22/2019 12:00:00 AM EST active Omeprazo le 40 MG eCW1 (Formerly [facility]) Acetaminophen 325 MG / Oxycodone Hydroch loride 10 MG Oral Tablet [Percocet] Percocet 10-325 MG Percocet 10-325 MG 12/22/2019 12:00:00 AM EST 1.0 {tablet_as_needed} active Percocet 10-3 25 MG eCW1 (Former[facility]) Acetaminophen 325 MG / Oxycodone Hydroch loride 10 MG Oral Tablet [Percocet] Percocet 10-325 MG Percocet 10-325 MG 12/22/2019 12:00:00 AM EST 1.0 {tablet_as_needed} active Percocet 10-3 25 MG eCW1 (Former[facility]) Acetaminophen 325 MG / Oxycodone Hydroch loride 10 MG Oral Tablet [Percocet] Percocet 10-325 MG Percocet 10-325 MG 12/22/2019 12:00:00 AM EST 1.0 {tablet_as_needed} active Percocet 10-3 25 MG eCW1 (Formerly [facility]) Omeprazole 40 MG Delayed Release Oral Capsule Omeprazole 40 MG 12/22/2019 12:00:00 AM EST active Omeprazo le 40 MG eCW1 (Formerly [facility]) Sucralfate 1000 MG Oral Tablet Sucralfate 1 GM Sucralfate 1 GM 12/22/2019 12:00:00 AM EST 1.0 {tablet_on_an_empty_stomach} active Sucralfate 1 GM eCW1 (Formerly [facility]) Acetaminophen 325 MG / Oxycodone Hydroch loride 10 MG Oral Tablet [Percocet] Percocet 10-325 MG Percocet 10-325 MG 12/22/2019 12:00:00 AM EST 1.0 {tablet_as_needed} active Percocet 10-3 25 MG eCW1 (Formerly [facility]) Sucralfate 1000 MG Oral Tablet Sucralfate 1 GM Sucralfate 1 GM 12/22/2019 12:00:00 AM EST 1.0 {tablet_on_an_empty_stomach} active Sucralfate 1 GM eCW1 (Formerly [facility]) Omeprazole 40 MG Delayed Release Oral Capsule Omeprazole 40 MG 12/22/2019 12:00:00 AM EST active Omeprazo le 40 MG eCW1 (Former[facility]) Sucralfate 1000 MG Oral Tablet Sucralfate 1 GM Sucralfate 1 GM 12/22/2019 12:00:00 AM EST 1.0 {tablet_on_an_empty_stomach} active Sucralfate 1 GM eCW1 ([facility]ly [facility]) Omeprazole 40 MG Delayed Release Oral Capsule Omeprazole 40 MG 12/22/2019 12:00:00 AM EST active Omeprazo le 40 MG eCW1 (Former[facility]) Sucralfate 1000 MG Oral Tablet Sucralfate 1 GM Sucralfate 1 GM 12/22/2019 12:00:00 AM EST 1.0 {tablet_on_an_empty_stomach} active Sucralfate 1 GM eCW1 (Formerly [facility]) Omeprazole 40 MG Delayed Release Oral Capsule Omeprazole 40 MG 12/22/2019 12:00:00 AM EST active Omeprazo le 40 MG eCW1 (Former[facility]) Omeprazole 40 MG Delayed Release Oral Capsule Omeprazole 40 MG 12/22/2019 12:00:00 AM EST active Omeprazo le 40 MG eCW1 (Former[facility]) Omeprazole 40 MG Delayed Release Oral Capsule Omeprazole 40 MG 12/22/2019 12:00:00 AM EST active Omeprazo le 40 MG eCW1 (Formerly [facility]) Omeprazole 40 MG Delayed Release Oral Capsule Omeprazole 40 MG 12/22/2019 12:00:00 AM EST active Omeprazo le 40 MG eCW1 (Formerly [facility]) Omeprazole 40 MG Delayed Release Oral Capsule Omeprazole 40 MG 12/22/2019 12:00:00 AM EST active Omeprazo le 40 MG eCW1 (Formerly [facility]) Acetaminophen 325 MG / Oxycodone Hydroch loride 10 MG Oral Tablet [Percocet] Percocet 10-325 MG Percocet 10-325 MG 12/22/2019 12:00:00 AM EST 1.0 {tablet_as_needed} active Percocet 10-3 25 MG eCW1 (Formerly [facility]) Acetaminophen 325 MG / Oxycodone Hydroch loride 10 MG Oral Tablet [Percocet] Percocet 10-325 MG Percocet 10-325 MG 12/22/2019 12:00:00 AM EST 1.0 {tablet_as_needed} active Percocet 10-3 25 MG eCW1 (Formerly [facility]) Sucralfate 1000 MG Oral Tablet Sucralfate 1 GM Sucralfate 1 GM 12/22/2019 12:00:00 AM EST 1.0 {tablet_on_an_empty_stomach} active Sucralfate 1 GM eCW1 (Formerly [facility]) Sucralfate 1000 MG Oral Tablet Sucralfate 1 GM Sucralfate 1 GM 12/22/2019 12:00:00 AM EST 1.0 {tablet_on_an_empty_stomach} active Sucralfate 1 GM eCW1 ([facility]) Sucralfate 1000 MG Oral Tablet Sucralfate 1 GM Sucralfate 1 GM 12/22/2019 12:00:00 AM EST 1.0 {tablet_on_an_empty_stomach} active Sucralfate 1 GM eCW1 (Formerly [facility]) Omeprazole 40 MG Delayed Release Oral Capsule Omeprazole 40 MG 12/22/2019 12:00:00 AM EST active Omeprazo le 40 MG eCW1 (Formerly [facility]) Acetaminophen 325 MG / Oxycodone Hydroch loride 10 MG Oral Tablet [Percocet] Percocet 10-325 MG Percocet 10-325 MG 12/22/2019 12:00:00 AM EST 1.0 {tablet_as_needed} active Percocet 10-3 25 MG eCW1 (Formerly [facility]) Sucralfate 1000 MG Oral Tablet Sucralfate 1 GM Sucralfate 1 GM 12/22/2019 12:00:00 AM EST 1.0 {tablet_on_an_empty_stomach} active Sucralfate 1 GM eCW1 (Formerly [facility]) Acetaminophen 325 MG / Oxycodone Hydroch loride 10 MG Oral Tablet [Percocet] Percocet 10-325 MG Percocet 10-325 MG 12/22/2019 12:00:00 AM EST 1.0 {tablet_as_needed} active Percocet 10-3 25 MG eCW1 (Former[facility]) Sucralfate 1000 MG Oral Tablet Sucralfate 1 GM Sucralfate 1 GM 12/22/2019 12:00:00 AM EST 1.0 {tablet_on_an_empty_stomach} active Sucralfate 1 GM eCW1 (Formerly [facility]) Omeprazole 40 MG Delayed Release Oral Capsule Omeprazole 40 MG 12/22/2019 12:00:00 AM EST active Omeprazo le 40 MG eCW1 (Former[facility]) Acetaminophen 325 MG / Oxycodone Hydroch loride 10 MG Oral Tablet [Percocet] Percocet 10-325 MG Percocet 10-325 MG 12/22/2019 12:00:00 AM EST 1.0 {tablet_as_needed} active Percocet 10-3 25 MG eCW1 (Former[facility]) Omeprazole 40 MG Delayed Release Oral Capsule Omeprazole 40 MG 12/22/2019 12:00:00 AM EST active Omeprazo le 40 MG eCW1 (Former[facility]) Sucralfate 1000 MG Oral Tablet Sucralfate 1 GM Sucralfate 1 GM 12/22/2019 12:00:00 AM EST 1.0 {tablet_on_an_empty_stomach} active Sucralfate 1 GM eCW1 (Formerly [facility]) Sucralfate 1000 MG Oral Tablet Sucralfate 1 GM Sucralfate 1 GM 12/22/2019 12:00:00 AM EST 1.0 {tablet_on_an_empty_stomach} active Sucralfate 1 GM eCW1 (Formerly [facility]) Omeprazole 40 MG Delayed Release Oral Capsule Omeprazole 40 MG 12/22/2019 12:00:00 AM EST active Omeprazo le 40 MG eCW1 (Former[facility]) Omeprazole 40 MG Delayed Release Oral Capsule Omeprazole 40 MG 12/22/2019 12:00:00 AM EST active Omeprazo le 40 MG eCW1 (Former[facility]) Sucralfate 1000 MG Oral Tablet Sucralfate 1 GM Sucralfate 1 GM 12/22/2019 12:00:00 AM EST 1.0 {tablet_on_an_empty_stomach} active Sucralfate 1 GM eCW1 (Former[facility]) Omeprazole 40 MG Delayed Release Oral Capsule Omeprazole 40 MG 12/22/2019 12:00:00 AM EST active Omeprazo le 40 MG eCW1 (Formerly [facility]) Acetaminophen 325 MG / Oxycodone Hydroch loride 10 MG Oral Tablet [Percocet] Percocet 10-325 MG Percocet 10-325 MG 12/22/2019 12:00:00 AM EST 1.0 {tablet_as_needed} active Percocet 10-3 25 MG eCW1 (Former[facility]) Sucralfate 1000 MG Oral Tablet Sucralfate 1 GM Sucralfate 1 GM 12/22/2019 12:00:00 AM EST 1.0 {tablet_on_an_empty_stomach} active Sucralfate 1 GM eCW1 ([facility]) Sucralfate 1000 MG Oral Tablet Sucralfate 1 GM Sucralfate 1 GM 12/22/2019 12:00:00 AM EST 1.0 {tablet_on_an_empty_stomach} active Sucralfate 1 GM eCW1 ([facility]) Omeprazole 40 MG Delayed Release Oral Capsule Omeprazole 40 MG 12/22/2019 12:00:00 AM EST active Omeprazo le 40 MG eCW1 (Former[facility]) Sucralfate 1000 MG Oral Tablet Sucralfate 1 GM Sucralfate 1 GM 12/22/2019 12:00:00 AM EST 1.0 {tablet_on_an_empty_stomach} active Sucralfate 1 GM eCW1 ([facility]) Sucralfate 1000 MG Oral Tablet Sucralfate 1 GM Sucralfate 1 GM 12/22/2019 12:00:00 AM EST 1.0 {tablet_on_an_empty_stomach} active Sucralfate 1 GM eCW1 ([facility]) Omeprazole 40 MG Delayed Release Oral Capsule Omeprazole 40 MG 12/22/2019 12:00:00 AM EST active Omeprazo le 40 MG eCW1 (Former[facility]) Omeprazole 40 MG Delayed Release Oral Capsule Omeprazole 40 MG 12/22/2019 12:00:00 AM EST active Omeprazo le 40 MG eCW1 (Former[facility]) Omeprazole 40 MG Delayed Release Oral Capsule Omeprazole 40 MG 12/22/2019 12:00:00 AM EST active Omeprazo le 40 MG eCW1 ([facility]) Sucralfate 1000 MG Oral Tablet Sucralfate 1 GM Sucralfate 1 12/22/2019 12:00:00 AM EST 1.0 {tablet_on_an_empty_stomach} active Sucralfate 1 GM eCW1 ([facility]) Sucralfate 1000 MG Oral Tablet Sucralfate 1 GM Sucralfate 1 GM 12/22/2019 12:00:00 AM EST 1.0 {tablet_on_an_empty_stomach} active Sucralfate 1 GM eCW1 (Former[facility]) Omeprazole 40 MG Delayed Release Oral Capsule Omeprazole 40 MG 12/22/2019 12:00:00 AM EST active Omeprazo le 40 MG eCW1 (Formerly [facility]) Sucralfate 1000 MG Oral Tablet Sucralfate 1 GM Sucralfate 1 GM 12/22/2019 12:00:00 AM EST 1.0 {tablet_on_an_empty_stomach} active Sucralfate 1 GM eCW1 (Formerly [facility]) Omeprazole 40 MG Delayed Release Oral Capsule Omeprazole 40 MG 12/22/2019 12:00:00 AM EST active Omeprazo le 40 MG eCW1 (Formerly [facility]) Omeprazole 40 MG Delayed Release Oral Capsule Omeprazole 40 MG 12/22/2019 12:00:00 AM EST active Omeprazo le 40 MG eCW1 (Formerly [facility]) Omeprazole 40 MG Delayed Release Oral Capsule Omeprazole 40 MG 12/22/2019 12:00:00 AM EST active Omeprazo le 40 MG eCW1 (Formerly [facility]) Acetaminophen 325 MG / Oxycodone Hydroch loride 10 MG Oral Tablet [Percocet] Percocet 10-325 MG Percocet 10-325 MG 12/22/2019 12:00:00 AM EST 1.0 {tablet_as_needed} active Percocet 10-3 25 MG eCW1 (Formerly [facility]) Omeprazole 40 MG Delayed Release Oral Capsule Omeprazole 40 MG 12/22/2019 12:00:00 AM EST active Omeprazo le 40 MG eCW1 (Formerly [facility]) Acetaminophen 325 MG / Oxycodone Hydroch loride 10 MG Oral Tablet [Percocet] Percocet 10-325 MG Percocet 10-325 MG 12/22/2019 12:00:00 AM EST 1.0 {tablet_as_needed} active Percocet 10-3 25 MG eCW1 (Formerly [facility]) Omeprazole 40 MG Delayed Release Oral Capsule Omeprazole 40 MG 12/22/2019 12:00:00 AM EST active Omeprazo le 40 MG eCW1 (Formerly [facility]) Acetaminophen 325 MG / Oxycodone Hydroch loride 10 MG Oral Tablet [Percocet] Percocet 10-325 MG Percocet 10-325 MG 12/22/2019 12:00:00 AM EST 1.0 {tablet_as_needed} active Percocet 10-3 25 MG eCW1 (Formerly [facility]) Sucralfate 1000 MG Oral Tablet Sucralfate 1 GM Sucralfate 1 GM 12/22/2019 12:00:00 AM EST 1.0 {tablet_on_an_empty_stomach} active Sucralfate 1 GM eCW1 (Formerly [facility]) Omeprazole 40 MG Delayed Release Oral Capsule Omeprazole 40 MG 12/22/2019 12:00:00 AM EST active Omeprazo le 40 MG eCW1 (Formerly [facility]) Omeprazole 40 MG Delayed Release Oral Capsule Omeprazole 40 MG 12/22/2019 12:00:00 AM EST active Omeprazo le 40 MG eCW1 (Formerly [facility]) Sucralfate 1000 MG Oral Tablet Sucralfate 1 GM Sucralfate 1 GM 12/22/2019 12:00:00 AM EST 1.0 {tablet_on_an_empty_stomach} active Sucralfate 1 GM eCW1 (Formerly [facility]) Omeprazole 40 MG Delayed Release Oral Capsule Omeprazole 40 MG 12/22/2019 12:00:00 AM EST active Omeprazo le 40 MG eCW1 (Formerly [facility]) Omeprazole 40 MG Delayed Release Oral Capsule Omeprazole 40 MG 12/22/2019 12:00:00 AM EST active Omeprazo le 40 MG eCW1 (Formerly [facility]) Acetaminophen 325 MG / Oxycodone Hydroch loride 10 MG Oral Tablet [Percocet] Percocet 10-325 MG Percocet 10-325 MG 12/22/2019 12:00:00 AM EST 1.0 {tablet_as_needed} active Percocet 10-3 25 MG eCW1 (Formerly [facility]) Acetaminophen 325 MG / Oxycodone Hydroch loride 10 MG Oral Tablet [Percocet] Percocet 10-325 MG Percocet 10-325 MG 12/22/2019 12:00:00 AM EST 1.0 {tablet_as_needed} active Percocet 10-3 25 MG eCW1 (Formerly [facility]) Acetaminophen 325 MG / Oxycodone Hydroch loride 10 MG Oral Tablet [Percocet] Percocet 10-325 MG Percocet 10-325 MG 12/22/2019 12:00:00 AM EST 1.0 {tablet_as_needed} active Percocet 10-3 25 MG eCW1 (Formerly [facility]) Omeprazole 40 MG Delayed Release Oral Capsule Omeprazole 40 MG 12/22/2019 12:00:00 AM EST active Omeprazo le 40 MG eCW1 (Formerly [facility]) Sucralfate 1000 MG Oral Tablet Sucralfate 1 GM Sucralfate 1 GM 12/22/2019 12:00:00 AM EST 1.0 {tablet_on_an_empty_stomach} active Sucralfate 1 GM eCW1 (Formerly [facility]) Sucralfate 1000 MG Oral Tablet Sucralfate 1 GM Sucralfate 1 GM 12/22/2019 12:00:00 AM EST 1.0 {tablet_on_an_empty_stomach} active Sucralfate 1 GM eCW1 (Formerly [facility]) Sucralfate 1000 MG Oral Tablet Sucralfate 1 GM Sucralfate 1 GM 12/22/2019 12:00:00 AM EST 1.0 {tablet_on_an_empty_stomach} active Sucralfate 1 GM eCW1 (Formerly [facility]) Sucralfate 1000 MG Oral Tablet Sucralfate 1 GM Sucralfate 1 GM 12/22/2019 12:00:00 AM EST 1.0 {tablet_on_an_empty_stomach} active Sucralfate 1 GM eCW1 (Formerly [facility]) 10-325 mg 12/22/2019 12:00:00 AM EST tablet [...] {tablet_as_needed} active Percocet 10-3 25 MG eCW1 (Formerly [facility]) Omeprazole 40 MG Delayed Release Oral Capsule Omeprazole 40 MG 12/22/2019 12:00:00 AM EST active Omeprazo le 40 MG eCW1 (Formerly [facility]) Acetaminophen 325 MG / Oxycodone Hydroch loride 10 MG Oral Tablet [Percocet] Percocet 10-325 MG Percocet 10-325 MG 12/22/2019 12:00:00 AM EST 1.0 {tablet_as_needed} active Percocet 10-3 25 MG eCW1 (Formerly [facility]) Omeprazole 40 MG Delayed Release Oral Capsule Omeprazole 40 MG 12/22/2019 12:00:00 AM EST active Omeprazo le 40 MG eCW1 (Formerly [facility]) Acetaminophen 325 MG / Oxycodone Hydroch loride 10 MG Oral Tablet [Percocet] Percocet 10-325 MG Percocet 10-325 MG 12/22/2019 12:00:00 AM EST 1.0 {tablet_as_needed} active Percocet 10-3 25 MG eCW1 (Formerly [facility]) Omeprazole 40 MG Delayed Release Oral Capsule Omeprazole 40 MG 12/22/2019 12:00:00 AM EST active Omeprazo le 40 MG eCW1 (Formerly [facility]) Omeprazole 40 MG Delayed Release Oral Capsule Omeprazole 40 MG 12/22/2019 12:00:00 AM EST active Omeprazo le 40 MG eCW1 (Formerly [facility]) Sucralfate 1000 MG Oral Tablet Sucralfate 1 GM Sucralfate 1 GM 12/22/2019 12:00:00 AM EST 1.0 {tablet_on_an_empty_stomach} active Sucralfate 1 GM eCW1 (Formerly [facility]) Sucralfate 1000 MG Oral Tablet Sucralfate 1 GM Sucralfate 1 GM 12/22/2019 12:00:00 AM EST 1.0 {tablet_on_an_empty_stomach} active Sucralfate 1 GM eCW1 (Formerly [facility]) Sucralfate 1000 MG Oral Tablet Sucralfate 1 GM Sucralfate 1 GM 12/22/2019 12:00:00 AM EST 1.0 {tablet_on_an_empty_stomach} active Sucralfate 1 GM eCW1 (Formerly [facility]) Acetaminophen 325 MG / Oxycodone Hydroch loride 10 MG Oral Tablet [Percocet] Percocet 10-325 MG Percocet 10-325 MG 12/22/2019 12:00:00 AM EST 1.0 {tablet_as_needed} active Percocet 10-3 25 MG eCW1 (Formerly [facility]) Sucralfate 1000 MG Oral Tablet Sucralfate 1 GM Sucralfate 1 GM 12/22/2019 12:00:00 AM EST 1.0 {tablet_on_an_empty_stomach} active Sucralfate 1 GM eCW1 (Formerly [facility]) Sucralfate 1000 MG Oral Tablet Sucralfate 1 GM Sucralfate 1 GM 12/22/2019 12:00:00 AM EST 1.0 {tablet_on_an_empty_stomach} active Sucralfate 1 GM eCW1 (Formerly [facility]) Sucralfate 1000 MG Oral Tablet Sucralfate 1 GM Sucralfate 1 GM 12/22/2019 12:00:00 AM EST 1.0 {tablet_on_an_empty_stomach} active Sucralfate 1 GM eCW1 (Formerly [facility]) Omeprazole 40 MG Delayed Release Oral Capsule Omeprazole 40 MG 12/22/2019 12:00:00 AM EST active Omeprazo le 40 MG eCW1 (Former[facility]) Sucralfate 1000 MG Oral Tablet Sucralfate 1 GM Sucralfate 1 GM 12/22/2019 12:00:00 AM EST 1.0 {tablet_on_an_empty_stomach} active Sucralfate 1 GM eCW1 (Formerly [facility]) Sucralfate 1000 MG Oral Tablet Sucralfate 1 GM Sucralfate 1 GM 12/22/2019 12:00:00 AM EST 1.0 {tablet_on_an_empty_stomach} active Sucralfate 1 GM eCW1 (Formerly [facility]) Amlodipine 5 MG / valsartan 160 MG [...] MOUTH TWO TIMES A DAY SOLD: 12/01/2019 [facility] 60 mg 11/25/2019 12:00:00 AM EDT capsule,delayed release (DR/EC) 30 TAKE ONE CAPSULE BY MOUTH EVERY DAY TAKE ONE CAPSULE BY MOUTH EVERY DAY SOLD: 11/25/2019 [facility] Acetaminophen 325 MG / Oxycodone Hydroch loride 10 MG Oral Tablet [Percocet] Percocet 10-325 MG Percocet 10-325 MG 11/24/2019 12:00:00 AM EDT 1.0 {tablet_as_needed} active Percocet 10-3 25 MG eCW1 (Formerly [facility]) Acetaminophen 325 MG / Oxycodone Hydroch loride 10 MG Oral Tablet [Percocet] Percocet 10-325 MG Percocet 10-325 MG 11/24/2019 12:00:00 AM EDT 1.0 {tablet_as_needed} active Percocet 10-3 25 MG eCW1 (Formerly [facility]) Acetaminophen 325 MG / Oxycodone Hydroch loride 10 MG Oral Tablet [Percocet] Percocet 10-325 MG Percocet 10-325 MG 11/24/2019 12:00:00 AM EDT 1.0 {tablet_as_needed} active Percocet 10-3 25 MG eCW1 (Formerly [facility]) Acetaminophen 325 MG / Oxycodone Hydroch loride 10 MG Oral Tablet [Percocet] Percocet 10-325 MG Percocet 10-325 MG 11/24/2019 12:00:00 AM EDT 1.0 {tablet_as_needed} active Percocet 10-3 25 MG eCW1 (Former[facility]) Acetaminophen 325 MG / Oxycodone Hydroch loride 10 MG Oral Tablet [Percocet] Percocet 10-325 MG Percocet 10-325 MG 11/24/2019 12:00:00 AM EDT 1.0 {tablet_as_needed} active Percocet 10-3 25 MG eCW1 (Formerly [facility]) 10-325 mg 11/24/2019 12:00:00 AM EDT tablet [...] {tablet_as_needed} active Percocet 10-3 25 MG eCW1 (Former[facility]) Acetaminophen 325 MG / Oxycodone Hydroch loride 10 MG Oral Tablet [Percocet] Percocet 10-325 MG Percocet 10-325 MG 11/24/2019 12:00:00 AM EDT 1.0 {tablet_as_needed} active Percocet 10-3 25 MG eCW1 (Former[facility]) Acetaminophen 325 MG / Oxycodone Hydroch loride 10 MG Oral Tablet [Percocet] Percocet 10-325 MG Percocet 10-325 MG 11/24/2019 12:00:00 AM EDT 1.0 {tablet_as_needed} active Percocet 10-3 25 MG eCW1 (Former[facility]) Acetaminophen 325 MG / Oxycodone Hydroch loride 10 MG Oral Tablet [Percocet] Percocet 10-325 MG Percocet 10-325 MG 11/24/2019 12:00:00 AM EDT 1.0 {tablet_as_needed} active Percocet 10-3 25 MG eCW1 (Former[facility]) Acetaminophen 325 MG / Oxycodone Hydroch loride 10 MG Oral Tablet [Percocet] Percocet 10-325 MG Percocet 10-325 MG 11/24/2019 12:00:00 AM EDT 1.0 {tablet_as_needed} active Percocet 10-3 25 MG eCW1 (Former[facility]) Acetaminophen 325 MG / Oxycodone Hydroch loride 10 MG Oral Tablet [Percocet] Percocet 10-325 MG Percocet 10-325 MG 11/24/2019 12:00:00 AM EDT 1.0 {tablet_as_needed} active Percocet 10-3 25 MG eCW1 (Former[facility]) Acetaminophen 325 MG / Oxycodone Hydroch loride 10 MG Oral Tablet [Percocet] Percocet 10-325 MG Percocet 10-325 MG 11/24/2019 12:00:00 AM EDT 1.0 {tablet_as_needed} active Percocet 10-3 25 MG eCW1 (Former[facility]) Acetaminophen 325 MG / Oxycodone Hydroch loride 10 MG Oral Tablet [Percocet] Percocet 10-325 MG Percocet 10-325 MG 11/24/2019 12:00:00 AM EDT 1.0 {tablet_as_needed} active Percocet 10-3 25 MG eCW1 (Former[facility]) Acetaminophen 325 MG / Oxycodone Hydroch loride 10 MG Oral Tablet [Percocet] Percocet 10-325 MG Percocet 10-325 MG 11/24/2019 12:00:00 AM EDT 1.0 {tablet_as_needed} active Percocet 10-3 25 MG eCW1 (Former[facility]) Acetaminophen 325 MG / Oxycodone Hydroch loride 10 MG Oral Tablet [Percocet] Percocet 10-325 MG Percocet 10-325 MG 11/24/2019 12:00:00 AM EDT 1.0 {tablet_as_needed} active Percocet 10-3 25 MG eCW1 (Former[facility]) Acetaminophen 325 MG / Oxycodone Hydroch loride 10 MG Oral Tablet [Percocet] Percocet 10-325 MG Percocet 10-325 MG 11/24/2019 12:00:00 AM EDT 1.0 {tablet_as_needed} active Percocet 10-3 25 MG eCW1 (Former[facility]) Acetaminophen 325 MG / Oxycodone Hydroch loride 10 MG Oral Tablet [Percocet] Percocet 10-325 MG Percocet 10-325 MG 11/24/2019 12:00:00 AM EDT 1.0 {tablet_as_needed} active Percocet 10-3 25 MG eCW1 (Former[facility]) Acetaminophen 325 MG / Oxycodone Hydroch loride 10 MG Oral Tablet [Percocet] Percocet 10-325 MG Percocet 10-325 MG 11/24/2019 12:00:00 AM EDT 1.0 {tablet_as_needed} active Percocet 10-3 25 MG eCW1 (Formerly [facility]) atorvastatin 40 MG Oral Tablet ATORVASTATIN CALCIUM [...] 1.0 {tablet_as_needed} active Diazepam 2 MG eCW1 (Former[facility]) Diazepam 2 MG Oral Tablet Diazepam 2 MG 11/10/2019 12:00:00 AM EDT active Diazepam 2 MG eCW1 (Former[facility]) Diazepam 2 MG Oral Tablet Diazepam 2 MG 11/10/2019 12:00:00 AM EDT 1.0 {tablet_as_needed} active Diazepam 2 MG eCW1 (Former[facility]) Diazepam 2 MG Oral Tablet Diazepam 2 MG 11/10/2019 12:00:00 AM EDT 1.0 {tablet_as_needed} active Diazepam 2 MG eCW1 (Former[facility]) Diazepam 2 MG Oral Tablet Diazepam 2 MG 11/10/2019 12:00:00 AM EDT 1.0 {tablet_as_needed} active Diazepam 2 MG eCW1 (Formerly [facility]) Diazepam 2 MG Oral Tablet Diazepam 2 MG 11/10/2019 12:00:00 AM EDT active Diazepam 2 MG eCW1 (Former[facility]) Diazepam 2 MG Oral Tablet Diazepam 2 MG 11/10/2019 12:00:00 AM EDT 1.0 {tablet_as_needed} active Diazepam 2 MG eCW1 (Formerly [facility]) Diazepam 2 MG Oral Tablet Diazepam 2 MG 11/10/2019 12:00:00 AM EDT active Diazepam 2 MG eCW1 (Former[facility]) Diazepam 2 MG Oral Tablet Diazepam 2 MG 11/10/2019 12:00:00 AM EDT active Diazepam 2 MG eCW1 (Former[facility]) Diazepam 2 MG Oral Tablet Diazepam 2 MG 11/10/2019 12:00:00 AM EDT 1.0 {tablet_as_needed} active Diazepam 2 MG eCW1 (Formerly [facility]) Diazepam 2 MG Oral Tablet Diazepam 2 MG 11/10/2019 12:00:00 AM EDT 1.0 {tablet_as_needed} active Diazepam 2 MG eCW1 (Former[facility]) Diazepam 2 MG Oral Tablet Diazepam 2 MG 11/10/2019 12:00:00 AM EDT active Diazepam 2 MG eCW1 (Former[facility]) Diazepam 2 MG Oral Tablet Diazepam 2 MG 11/10/2019 12:00:00 AM EDT active Diazepam 2 MG eCW1 (Former[facility]) Diazepam 2 MG Oral Tablet Diazepam 2 MG 11/10/2019 12:00:00 AM EDT active Diazepam 2 MG eCW1 (Former[facility]) Diazepam 2 MG Oral Tablet Diazepam 2 MG 11/10/2019 12:00:00 AM EDT 1.0 {tablet_as_needed} active Diazepam 2 MG eCW1 (Formerly [facility]) Diazepam 2 MG Oral Tablet Diazepam 2 MG 11/10/2019 12:00:00 AM EDT active Diazepam 2 MG eCW1 (Former[facility]) Diazepam 2 MG Oral Tablet Diazepam 2 MG 11/10/2019 12:00:00 AM EDT active Diazepam 2 MG eCW1 (Former[facility]) Diazepam 2 MG Oral Tablet Diazepam 2 MG 11/10/2019 12:00:00 AM EDT active Diazepam 2 MG eCW1 (Former[facility]) Diazepam 2 MG Oral Tablet Diazepam 2 MG 11/10/2019 12:00:00 AM EDT active Diazepam 2 MG eCW1 (Former[facility]) Diazepam 2 MG Oral Tablet Diazepam 2 MG 11/10/2019 12:00:00 AM EDT active Diazepam 2 MG eCW1 (Former[facility]) Diazepam 2 MG Oral Tablet Diazepam 2 MG 11/10/2019 12:00:00 AM EDT active Diazepam 2 MG eCW1 (Former[facility]) Diazepam 2 MG Oral Tablet Diazepam 2 MG 11/10/2019 12:00:00 AM EDT active Diazepam 2 MG eCW1 (Former[facility]) Diazepam 2 MG Oral Tablet Diazepam 2 MG 11/10/2019 12:00:00 AM EDT 1.0 {tablet_as_needed} active Diazepam 2 MG eCW1 (Formerly [facility]) Diazepam 2 MG Oral Tablet Diazepam 2 MG 11/10/2019 12:00:00 AM EDT active Diazepam 2 MG eCW1 (Former[facility]) Diazepam 2 MG Oral Tablet Diazepam 2 MG 11/10/2019 12:00:00 AM EDT active Diazepam 2 MG eCW1 (Former[facility]) Diazepam 2 MG Oral Tablet Diazepam 2 MG 11/10/2019 12:00:00 AM EDT 1.0 {tablet_as_needed} active Diazepam 2 MG eCW1 (Formerly [facility]) Diazepam 2 MG Oral Tablet Diazepam 2 MG 11/10/2019 12:00:00 AM EDT 1.0 {tablet_as_needed} active Diazepam 2 MG eCW1 (Formerly [facility]) Diazepam 2 MG Oral Tablet Diazepam 2 MG 11/10/2019 12:00:00 AM EDT active Diazepam 2 MG eCW1 (Formerly [facility]) Diazepam 2 MG Oral Tablet Diazepam 2 MG 11/10/2019 12:00:00 AM EDT active Diazepam 2 MG eCW1 (Formerly [facility]) Diazepam 2 MG Oral Tablet Diazepam 2 MG 11/10/2019 12:00:00 AM EDT 1.0 {tablet_as_needed} active Diazepam 2 MG eCW1 (Formerly [facility]) Diazepam 2 MG Oral Tablet Diazepam 2 MG 11/10/2019 12:00:00 AM EDT active Diazepam 2 MG eCW1 (Formerly [facility]) Diazepam 2 MG Oral Tablet Diazepam 2 MG 11/10/2019 12:00:00 AM EDT 1.0 {tablet_as_needed} active Diazepam 2 MG eCW1 (Formerly [facility]) Diazepam 2 MG Oral Tablet Diazepam 2 MG 11/10/2019 12:00:00 AM EDT active Diazepam 2 MG eCW1 (Former[facility]) Diazepam 2 MG Oral Tablet Diazepam 2 MG 11/10/2019 12:00:00 AM EDT 1.0 {tablet_as_needed} active Diazepam 2 MG eCW1 (Formerly [facility]) Diazepam 2 MG Oral Tablet Diazepam 2 MG 11/10/2019 12:00:00 AM EDT 1.0 {tablet_as_needed} active Diazepam 2 MG eCW1 (Formerly [facility]) Diazepam 2 MG Oral Tablet Diazepam 2 MG 11/10/2019 12:00:00 AM EDT active Diazepam 2 MG eCW1 (Former[facility]) Diazepam 2 MG Oral Tablet Diazepam 2 MG 11/10/2019 12:00:00 AM EDT active Diazepam 2 MG eCW1 (Former[facility]) Diazepam 2 MG Oral Tablet Diazepam 2 MG 11/10/2019 12:00:00 AM EDT 1.0 {tablet_as_needed} active Diazepam 2 MG eCW1 (Formerly [facility]) Diazepam 2 MG Oral Tablet Diazepam 2 MG 11/10/2019 12:00:00 AM EDT active Diazepam 2 MG eCW1 (Formerly [facility]) Diazepam 2 MG Oral Tablet Diazepam 2 MG 11/10/2019 12:00:00 AM EDT 1.0 {tablet_as_needed} active Diazepam 2 MG eCW1 (Formerly [facility]) Diazepam 2 MG Oral Tablet Diazepam 2 MG 11/10/2019 12:00:00 AM EDT 1.0 {tablet_as_needed} active Diazepam 2 MG eCW1 (Formerly [facility]) Diazepam 2 MG Oral Tablet Diazepam 2 MG 11/10/2019 12:00:00 AM EDT 1.0 {tablet_as_needed} active Diazepam 2 MG eCW1 (Formerly [facility]) Diazepam 2 MG Oral Tablet Diazepam 2 MG 11/10/2019 12:00:00 AM EDT 1.0 {tablet_as_needed} active Diazepam 2 MG eCW1 (Formerly [facility]) Diazepam 2 MG Oral Tablet Diazepam 2 MG 11/10/2019 12:00:00 AM EDT active Diazepam 2 MG eCW1 (Former[facility]) Diazepam 2 MG Oral Tablet Diazepam 2 MG 11/10/2019 12:00:00 AM EDT active Diazepam 2 MG eCW1 (Former[facility]) Diazepam 2 MG Oral Tablet Diazepam 2 MG 11/10/2019 12:00:00 AM EDT active Diazepam 2 MG eCW1 (Former[facility]) Diazepam 2 MG Oral Tablet Diazepam 2 MG 11/10/2019 12:00:00 AM EDT active Diazepam 2 MG eCW1 (Former[facility]) Diazepam 2 MG Oral Tablet Diazepam 2 MG 11/10/2019 12:00:00 AM EDT active Diazepam 2 MG eCW1 (Formerly [facility]) Diazepam 2 MG Oral Tablet Diazepam 2 MG 11/10/2019 12:00:00 AM EDT 1.0 {tablet_as_needed} active Diazepam 2 MG eCW1 (Formerly [facility]) Diazepam 2 MG Oral Tablet Diazepam 2 MG 11/10/2019 12:00:00 AM EDT active Diazepam 2 MG eCW1 (Former[facility]) Diazepam 2 MG Oral Tablet Diazepam 2 MG 11/10/2019 12:00:00 AM EDT active Diazepam 2 MG eCW1 (Formerly [facility]) Diazepam 2 MG Oral Tablet Diazepam 2 MG 11/10/2019 12:00:00 AM EDT active Diazepam 2 MG eCW1 (Former[facility]) Diazepam 2 MG Oral Tablet Diazepam 2 MG 11/10/2019 12:00:00 AM EDT 1.0 {tablet_as_needed} active Diazepam 2 MG eCW1 (Formerly [facility]) Diazepam 2 MG Oral Tablet Diazepam 2 MG 11/10/2019 12:00:00 AM EDT active Diazepam 2 MG eCW1 (Former[facility]) Diazepam 2 MG Oral Tablet Diazepam 2 MG 11/10/2019 12:00:00 AM EDT active Diazepam 2 MG eCW1 (Former[facility]) Diazepam 2 MG Oral Tablet Diazepam 2 MG 11/10/2019 12:00:00 AM EDT 1.0 {tablet_as_needed} active Diazepam 2 MG eCW1 (Former[facility]) Diazepam 2 MG Oral Tablet Diazepam 2 MG 11/10/2019 12:00:00 AM EDT active Diazepam 2 MG eCW1 (Former[facility]) Diazepam 2 MG Oral Tablet Diazepam 2 MG 11/10/2019 12:00:00 AM EDT active Diazepam 2 MG eCW1 (Former[facility]) Diazepam 2 MG Oral Tablet Diazepam 2 MG 11/10/2019 12:00:00 AM EDT 1.0 {tablet_as_needed} active Diazepam 2 MG eCW1 (Former[facility]) Diazepam 2 MG Oral Tablet Diazepam 2 MG 11/10/2019 12:00:00 AM EDT active Diazepam 2 MG eCW1 (Former[facility]) Diazepam 2 MG Oral Tablet Diazepam 2 MG 11/10/2019 12:00:00 AM EDT active Diazepam 2 MG eCW1 (Former[facility]) Diazepam 2 MG Oral Tablet Diazepam 2 MG 11/10/2019 12:00:00 AM EDT active Diazepam 2 MG eCW1 (Former[facility]) Diazepam 2 MG Oral Tablet Diazepam 2 MG 11/10/2019 12:00:00 AM EDT active Diazepam 2 MG eCW1 ([facility]) Diazepam 2 MG Oral Tablet Diazepam 2 MG 11/10/2019 12:00:00 AM EDT 1.0 {tablet_as_needed} active Diazepam 2 MG eCW1 (Former[facility]) Diazepam 2 MG Oral Tablet Diazepam 2 MG 11/10/2019 12:00:00 AM EDT 1.0 {tablet_as_needed} active Diazepam 2 MG eCW1 (Former[facility]) Diazepam 2 MG Oral Tablet Diazepam 2 MG 11/10/2019 12:00:00 AM EDT active Diazepam 2 MG eCW1 (Former[facility]) Diazepam 2 MG Oral Tablet Diazepam 2 MG 11/10/2019 12:00:00 AM EDT active Diazepam 2 MG eCW1 (Former[facility]) Diazepam 2 MG Oral Tablet Diazepam 2 MG 11/10/2019 12:00:00 AM EDT active Diazepam 2 MG eCW1 (Former[facility]) Diazepam 2 MG Oral Tablet Diazepam 2 MG 11/10/2019 12:00:00 AM EDT active Diazepam 2 MG eCW1 (Former[facility]) Diazepam 2 MG Oral Tablet Diazepam 2 MG 11/10/2019 12:00:00 AM EDT active Diazepam 2 MG eCW1 (Former[facility]) Diazepam 2 MG Oral Tablet Diazepam 2 MG 11/10/2019 12:00:00 AM EDT active Diazepam 2 MG eCW1 (Former[facility]) Diazepam 2 MG Oral Tablet Diazepam 2 MG 11/10/2019 12:00:00 AM EDT 1.0 {tablet_as_needed} active Diazepam 2 MG eCW1 (Formerly [facility]) Diazepam 2 MG Oral Tablet Diazepam 2 MG 11/10/2019 12:00:00 AM EDT 1.0 {tablet_as_needed} active Diazepam 2 MG eCW1 (Formerly [facility]) Diazepam 2 MG Oral Tablet Diazepam 2 MG 11/10/2019 12:00:00 AM EDT active Diazepam 2 MG eCW1 ([facility]) Diazepam 2 MG Oral Tablet Diazepam 2 MG 11/10/2019 12:00:00 AM EDT active Diazepam 2 MG eCW1 ([facility]) Diazepam 2 MG Oral Tablet Diazepam 2 MG 11/10/2019 12:00:00 AM EDT active Diazepam 2 MG eCW1 (Former[facility]) Diazepam 2 MG Oral Tablet Diazepam 2 MG 11/10/2019 12:00:00 AM EDT 1.0 {tablet_as_needed} active Diazepam 2 MG eCW1 (Formerly [facility]) 15 mg 11/04/2019 12:00:00 AM EDT tablet [...] MOUT H TWICE A DAY SOLD: 11/27/2019 [facility] carvedilol 6.25 MG Oral Tablet CARVEDILOL [...] Primidone 09/22/2019 12:00:00 AM EDT active [facility] ([facility], ) 250 mg 09/22/2019 12:00:00 [...] suspended Spiriva Respimat 2 .5 MCG/ACT eCW1 (Formerly [facility]) 28 ACTUAT tiotropium 0.0025 MG/ACTUAT Me tered Dose Inhaler [Spiriva] Spiriva Respimat 2.5 MCG/ACT Spiriva Respimat 2.5 MCG/ACT 09/04/2019 12:00:00 AM EDT 2.0 {puffs} suspended Spiriva Respimat 2 .5 MCG/ACT eCW1 (Formerly [facility]) 28 ACTUAT tiotropium 0.0025 MG/ACTUAT Me tered Dose Inhaler [Spiriva] Spiriva Respimat 2.5 MCG/ACT Spiriva Respimat 2.5 MCG/ACT 09/04/2019 12:00:00 AM EDT 2.0 {puffs} suspended Spiriva Respimat 2 .5 MCG/ACT eCW1 (Formerly [facility]) 28 ACTUAT tiotropium 0.0025 MG/ACTUAT Me tered Dose Inhaler [Spiriva] Spiriva Respimat 2.5 MCG/ACT Spiriva Respimat 2.5 MCG/ACT 09/04/2019 12:00:00 AM EDT 2.0 {puffs} active Spiriva Respimat 2.5 MCG/ACT eCW1 (Formerly [facility]) 28 ACTUAT tiotropium 0.0025 MG/ACTUAT Me tered Dose Inhaler [Spiriva] Spiriva Respimat 2.5 MCG/ACT Spiriva Respimat 2.5 MCG/ACT 09/04/2019 12:00:00 AM EDT 2.0 {puffs} suspended Spiriva Respimat 2 .5 MCG/ACT eCW1 (Formerly [facility]) 15 mg 09/04/2019 12:00:00 AM EDT tablet [...] {puffs} active Spiriva Respimat 2.5 MCG/ACT eCW1 (Formerly [facility]) 28 ACTUAT tiotropium 0.0025 MG/ACTUAT Me tered Dose Inhaler [Spiriva] Spiriva Respimat 2.5 MCG/ACT Spiriva Respimat 2.5 MCG/ACT 09/04/2019 12:00:00 AM EDT 2.0 {puffs} suspended Spiriva Respimat 2 .5 MCG/ACT eCW1 (Formerly [facility]) 28 ACTUAT tiotropium 0.0025 MG/ACTUAT Me tered Dose Inhaler [Spiriva] Spiriva Respimat 2.5 MCG/ACT Spiriva Respimat 2.5 MCG/ACT 09/04/2019 12:00:00 AM EDT 2.0 {puffs} active Spiriva Respimat 2.5 MCG/ACT eCW1 (Formerly [facility]) 28 ACTUAT tiotropium 0.0025 MG/ACTUAT Me tered Dose Inhaler [Spiriva] Spiriva Respimat 2.5 MCG/ACT Spiriva Respimat 2.5 MCG/ACT 09/04/2019 12:00:00 AM EDT 2.0 {puffs} active Spiriva Respimat 2.5 MCG/ACT eCW1 (Formerly [facility]) 28 ACTUAT tiotropium 0.0025 MG/ACTUAT Me tered Dose Inhaler [Spiriva] Spiriva Respimat 2.5 MCG/ACT Spiriva Respimat 2.5 MCG/ACT 09/04/2019 12:00:00 AM EDT 2.0 {puffs} suspended Spiriva Respimat 2 .5 MCG/ACT eCW1 (Formerly [facility]) 28 ACTUAT tiotropium 0.0025 MG/ACTUAT Me tered Dose Inhaler [Spiriva] Spiriva Respimat 2.5 MCG/ACT Spiriva Respimat 2.5 MCG/ACT 09/04/2019 12:00:00 AM EDT 2.0 {puffs} active Spiriva Respimat 2.5 MCG/ACT eCW1 (Formerly [facility]) 28 ACTUAT tiotropium 0.0025 MG/ACTUAT Me tered Dose Inhaler [Spiriva] Spiriva Respimat 2.5 MCG/ACT Spiriva Respimat 2.5 MCG/ACT 09/04/2019 12:00:00 AM EDT 2.0 {puffs} suspended Spiriva Respimat 2 .5 MCG/ACT eCW1 (Formerly [facility]) 28 ACTUAT tiotropium 0.0025 MG/ACTUAT Me tered Dose Inhaler [Spiriva] Spiriva Respimat 2.5 MCG/ACT Spiriva Respimat 2.5 MCG/ACT 09/04/2019 12:00:00 AM EDT 2.0 {puffs} active Spiriva Respimat 2.5 MCG/ACT eCW1 (Formerly [facility]) 28 ACTUAT tiotropium 0.0025 MG/ACTUAT Me tered Dose Inhaler [Spiriva] Spiriva Respimat 2.5 MCG/ACT Spiriva Respimat 2.5 MCG/ACT 09/04/2019 12:00:00 AM EDT 2.0 {puffs} suspended Spiriva Respimat 2 .5 MCG/ACT eCW1 (Formerly [facility]) 28 ACTUAT tiotropium 0.0025 MG/ACTUAT Me tered Dose Inhaler [Spiriva] Spiriva Respimat 2.5 MCG/ACT Spiriva Respimat 2.5 MCG/ACT 09/04/2019 12:00:00 AM EDT 2.0 {puffs} active Spiriva Respimat 2.5 MCG/ACT eCW1 (Formerly [facility]) 28 ACTUAT tiotropium 0.0025 MG/ACTUAT Me tered Dose Inhaler [Spiriva] Spiriva Respimat 2.5 MCG/ACT Spiriva Respimat 2.5 MCG/ACT 09/04/2019 12:00:00 AM EDT 2.0 {puffs} active Spiriva Respimat 2.5 MCG/ACT eCW1 (Formerly [facility]) 28 ACTUAT tiotropium 0.0025 MG/ACTUAT Me tered Dose Inhaler [Spiriva] Spiriva Respimat 2.5 MCG/ACT Spiriva Respimat 2.5 MCG/ACT 09/04/2019 12:00:00 AM EDT 2.0 {puffs} active Spiriva Respimat 2.5 MCG/ACT eCW1 (Formerly [facility]) 28 ACTUAT tiotropium 0.0025 MG/ACTUAT Me tered Dose Inhaler [Spiriva] Spiriva Respimat 2.5 MCG/ACT Spiriva Respimat 2.5 MCG/ACT 09/04/2019 12:00:00 AM EDT 2.0 {puffs} active Spiriva Respimat 2.5 MCG/ACT eCW1 (Formerly [facility]) 28 ACTUAT tiotropium 0.0025 MG/ACTUAT Me tered Dose Inhaler [Spiriva] Spiriva Respimat 2.5 MCG/ACT Spiriva Respimat 2.5 MCG/ACT 09/04/2019 12:00:00 AM EDT 2.0 {puffs} suspended Spiriva Respimat 2 .5 MCG/ACT eCW1 (Formerly [facility]) 28 ACTUAT tiotropium 0.0025 MG/ACTUAT Me tered Dose Inhaler [Spiriva] Spiriva Respimat 2.5 MCG/ACT Spiriva Respimat 2.5 MCG/ACT 09/04/2019 12:00:00 AM EDT 2.0 {puffs} active Spiriva Respimat 2.5 MCG/ACT eCW1 (Formerly [facility]) 28 ACTUAT tiotropium 0.0025 MG/ACTUAT Me tered Dose Inhaler [Spiriva] Spiriva Respimat 2.5 MCG/ACT Spiriva Respimat 2.5 MCG/ACT 09/04/2019 12:00:00 AM EDT 2.0 {puffs} active Spiriva Respimat 2.5 MCG/ACT eCW1 (Formerly [facility]) 28 ACTUAT tiotropium 0.0025 MG/ACTUAT Me tered Dose Inhaler [Spiriva] Spiriva Respimat 2.5 MCG/ACT Spiriva Respimat 2.5 MCG/ACT 09/04/2019 12:00:00 AM EDT 2.0 {puffs} suspended Spiriva Respimat 2 .5 MCG/ACT eCW1 (Formerly [facility]) 28 ACTUAT tiotropium 0.0025 MG/ACTUAT Me tered Dose Inhaler [Spiriva] Spiriva Respimat 2.5 MCG/ACT Spiriva Respimat 2.5 MCG/ACT 09/04/2019 12:00:00 AM EDT 2.0 {puffs} active Spiriva Respimat 2.5 MCG/ACT eCW1 (Formerly [facility]) 28 ACTUAT tiotropium 0.0025 MG/ACTUAT Me tered Dose Inhaler [Spiriva] Spiriva Respimat 2.5 MCG/ACT Spiriva Respimat 2.5 MCG/ACT 09/04/2019 12:00:00 AM EDT 2.0 {puffs} active Spiriva Respimat 2.5 MCG/ACT eCW1 (Formerly [facility]) 28 ACTUAT tiotropium 0.0025 MG/ACTUAT Me tered Dose Inhaler [Spiriva] Spiriva Respimat 2.5 MCG/ACT Spiriva Respimat 2.5 MCG/ACT 09/04/2019 12:00:00 AM EDT 2.0 {puffs} active Spiriva Respimat 2.5 MCG/ACT eCW1 (Formerly [facility]) 28 ACTUAT tiotropium 0.0025 MG/ACTUAT Me tered Dose Inhaler [Spiriva] Spiriva Respimat 2.5 MCG/ACT Spiriva Respimat 2.5 MCG/ACT 09/04/2019 12:00:00 AM EDT 2.0 {puffs} suspended Spiriva Respimat 2 .5 MCG/ACT eCW1 (Formerly [facility]) 28 ACTUAT tiotropium 0.0025 MG/ACTUAT Me tered Dose Inhaler [Spiriva] Spiriva Respimat 2.5 MCG/ACT Spiriva Respimat 2.5 MCG/ACT 09/04/2019 12:00:00 AM EDT 2.0 {puffs} active Spiriva Respimat 2.5 MCG/ACT eCW1 (Formerly [facility]) 28 ACTUAT tiotropium 0.0025 MG/ACTUAT Me tered Dose Inhaler [Spiriva] Spiriva Respimat 2.5 MCG/ACT Spiriva Respimat 2.5 MCG/ACT 09/04/2019 12:00:00 AM EDT 2.0 {puffs} suspended Spiriva Respimat 2 .5 MCG/ACT eCW1 (Formerly [facility]) 28 ACTUAT tiotropium 0.0025 MG/ACTUAT Me tered Dose Inhaler [Spiriva] Spiriva Respimat 2.5 MCG/ACT Spiriva Respimat 2.5 MCG/ACT 09/04/2019 12:00:00 AM EDT 2.0 {puffs} active Spiriva Respimat 2.5 MCG/ACT eCW1 (Formerly [facility]) 28 ACTUAT tiotropium 0.0025 MG/ACTUAT Me tered Dose Inhaler [Spiriva] Spiriva Respimat 2.5 MCG/ACT Spiriva Respimat 2.5 MCG/ACT 09/04/2019 12:00:00 AM EDT 2.0 {puffs} suspended Spiriva Respimat 2 .5 MCG/ACT eCW1 (Formerly [facility]) 28 ACTUAT tiotropium 0.0025 MG/ACTUAT Me tered Dose Inhaler [Spiriva] Spiriva Respimat 2.5 MCG/ACT Spiriva Respimat 2.5 MCG/ACT 09/04/2019 12:00:00 AM EDT 2.0 {puffs} active Spiriva Respimat 2.5 MCG/ACT eCW1 (Formerly [facility]) 28 ACTUAT tiotropium 0.0025 MG/ACTUAT Me tered Dose Inhaler [Spiriva] Spiriva Respimat 2.5 MCG/ACT Spiriva Respimat 2.5 MCG/ACT 09/04/2019 12:00:00 AM EDT 2.0 {puffs} active Spiriva Respimat 2.5 MCG/ACT eCW1 (Formerly [facility]) 28 ACTUAT tiotropium 0.0025 MG/ACTUAT Me tered Dose Inhaler [Spiriva] Spiriva Respimat 2.5 MCG/ACT Spiriva Respimat 2.5 MCG/ACT 09/04/2019 12:00:00 AM EDT 2.0 {puffs} active Spiriva Respimat 2.5 MCG/ACT eCW1 (Formerly [facility]) 28 ACTUAT tiotropium 0.0025 MG/ACTUAT Me tered Dose Inhaler [Spiriva] Spiriva Respimat 2.5 MCG/ACT Spiriva Respimat 2.5 MCG/ACT 09/04/2019 12:00:00 AM EDT 2.0 {puffs} suspended Spiriva Respimat 2 .5 MCG/ACT eCW1 (Formerly [facility]) 28 ACTUAT tiotropium 0.0025 MG/ACTUAT Me tered Dose Inhaler [Spiriva] Spiriva Respimat 2.5 MCG/ACT Spiriva Respimat 2.5 MCG/ACT 09/04/2019 12:00:00 AM EDT 2.0 {puffs} active Spiriva Respimat 2.5 MCG/ACT eCW1 (Formerly [facility]) 28 ACTUAT tiotropium 0.0025 MG/ACTUAT Me tered Dose Inhaler [Spiriva] Spiriva Respimat 2.5 MCG/ACT Spiriva Respimat 2.5 MCG/ACT 09/04/2019 12:00:00 AM EDT 2.0 {puffs} suspended Spiriva Respimat 2 .5 MCG/ACT eCW1 (Formerly [facility]) 28 ACTUAT tiotropium 0.0025 MG/ACTUAT Me tered Dose Inhaler [Spiriva] Spiriva Respimat 2.5 MCG/ACT Spiriva Respimat 2.5 MCG/ACT 09/04/2019 12:00:00 AM EDT 2.0 {puffs} suspended Spiriva Respimat 2 .5 MCG/ACT eCW1 (Formerly [facility]) 28 ACTUAT tiotropium 0.0025 MG/ACTUAT Me tered Dose Inhaler [Spiriva] Spiriva Respimat 2.5 MCG/ACT Spiriva Respimat 2.5 MCG/ACT 09/04/2019 12:00:00 AM EDT 2.0 {puffs} suspended Spiriva Respimat 2 .5 MCG/ACT eCW1 (Formerly [facility]) 28 ACTUAT tiotropium 0.0025 MG/ACTUAT Me tered Dose Inhaler [Spiriva] Spiriva Respimat 2.5 MCG/ACT Spiriva Respimat 2.5 MCG/ACT 09/04/2019 12:00:00 AM EDT 2.0 {puffs} active Spiriva Respimat 2.5 MCG/ACT eCW1 (Formerly [facility]) 28 ACTUAT tiotropium 0.0025 MG/ACTUAT Me tered Dose Inhaler [Spiriva] Spiriva Respimat 2.5 MCG/ACT Spiriva Respimat 2.5 MCG/ACT 09/04/2019 12:00:00 AM EDT 2.0 {puffs} active Spiriva Respimat 2.5 MCG/ACT eCW1 (Formerly [facility]) 28 ACTUAT tiotropium 0.0025 MG/ACTUAT Me tered Dose Inhaler [Spiriva] Spiriva Respimat 2.5 MCG/ACT Spiriva Respimat 2.5 MCG/ACT 09/04/2019 12:00:00 AM EDT 2.0 {puffs} active Spiriva Respimat 2.5 MCG/ACT eCW1 (Formerly [facility]) 28 ACTUAT tiotropium 0.0025 MG/ACTUAT Me tered Dose Inhaler [Spiriva] Spiriva Respimat 2.5 MCG/ACT Spiriva Respimat 2.5 MCG/ACT 09/04/2019 12:00:00 AM EDT 2.0 {puffs} active Spiriva Respimat 2.5 MCG/ACT eCW1 (Formerly [facility]) 28 ACTUAT tiotropium 0.0025 MG/ACTUAT Me tered Dose Inhaler [Spiriva] Spiriva Respimat 2.5 MCG/ACT Spiriva Respimat 2.5 MCG/ACT 09/04/2019 12:00:00 AM EDT 2.0 {puffs} active Spiriva Respimat 2.5 MCG/ACT eCW1 (Formerly [facility]) 28 ACTUAT tiotropium 0.0025 MG/ACTUAT Me tered Dose Inhaler [Spiriva] Spiriva Respimat 2.5 MCG/ACT Spiriva Respimat 2.5 MCG/ACT 09/04/2019 12:00:00 AM EDT 2.0 {puffs} suspended Spiriva Respimat 2 .5 MCG/ACT eCW1 (Formerly [facility]) 28 ACTUAT tiotropium 0.0025 MG/ACTUAT Me tered Dose Inhaler [Spiriva] Spiriva Respimat 2.5 MCG/ACT Spiriva Respimat 2.5 MCG/ACT 09/04/2019 12:00:00 AM EDT 2.0 {puffs} active Spiriva Respimat 2.5 MCG/ACT eCW1 (Formerly [facility]) 28 ACTUAT tiotropium 0.0025 MG/ACTUAT Me tered Dose Inhaler [Spiriva] Spiriva Respimat 2.5 MCG/ACT Spiriva Respimat 2.5 MCG/ACT 09/04/2019 12:00:00 AM EDT 2.0 {puffs} active Spiriva Respimat 2.5 MCG/ACT eCW1 (Formerly [facility]) 28 ACTUAT tiotropium 0.0025 MG/ACTUAT Me tered Dose Inhaler [Spiriva] Spiriva Respimat 2.5 MCG/ACT Spiriva Respimat 2.5 MCG/ACT 09/04/2019 12:00:00 AM EDT 2.0 {puffs} active Spiriva Respimat 2.5 MCG/ACT eCW1 (Formerly [facility]) 28 ACTUAT tiotropium 0.0025 MG/ACTUAT Me tered Dose Inhaler [Spiriva] Spiriva Respimat 2.5 MCG/ACT Spiriva Respimat 2.5 MCG/ACT 09/04/2019 12:00:00 AM EDT 2.0 {puffs} suspended Spiriva Respimat 2 .5 MCG/ACT eCW1 (Formerly [facility]) 28 ACTUAT tiotropium 0.0025 MG/ACTUAT Me tered Dose Inhaler [Spiriva] Spiriva Respimat 2.5 MCG/ACT Spiriva Respimat 2.5 MCG/ACT 09/04/2019 12:00:00 AM EDT 2.0 {puffs} suspended Spiriva Respimat 2 .5 MCG/ACT eCW1 (Formerly [facility]) 28 ACTUAT tiotropium 0.0025 MG/ACTUAT Me tered Dose Inhaler [Spiriva] Spiriva Respimat 2.5 MCG/ACT Spiriva Respimat 2.5 MCG/ACT 09/04/2019 12:00:00 AM EDT 2.0 {puffs} active Spiriva Respimat 2.5 MCG/ACT eCW1 (Formerly [facility]) 28 ACTUAT tiotropium 0.0025 MG/ACTUAT Me tered Dose Inhaler [Spiriva] Spiriva Respimat 2.5 MCG/ACT Spiriva Respimat 2.5 MCG/ACT 09/04/2019 12:00:00 AM EDT 2.0 {puffs} active Spiriva Respimat 2.5 MCG/ACT eCW1 (Formerly [facility]) 28 ACTUAT tiotropium 0.0025 MG/ACTUAT Me tered Dose Inhaler [Spiriva] Spiriva Respimat 2.5 MCG/ACT Spiriva Respimat 2.5 MCG/ACT 09/04/2019 12:00:00 AM EDT 2.0 {puffs} suspended Spiriva Respimat 2 .5 MCG/ACT eCW1 (Formerly [facility]) 28 ACTUAT tiotropium 0.0025 MG/ACTUAT Me tered Dose Inhaler [Spiriva] Spiriva Respimat 2.5 MCG/ACT Spiriva Respimat 2.5 MCG/ACT 09/04/2019 12:00:00 AM EDT 2.0 {puffs} active Spiriva Respimat 2.5 MCG/ACT eCW1 (Formerly [facility]) 28 ACTUAT tiotropium 0.0025 MG/ACTUAT Me tered Dose Inhaler [Spiriva] Spiriva Respimat 2.5 MCG/ACT Spiriva Respimat 2.5 MCG/ACT 09/04/2019 12:00:00 AM EDT 2.0 {puffs} active Spiriva Respimat 2.5 MCG/ACT eCW1 (Formerly [facility]) 28 ACTUAT tiotropium 0.0025 MG/ACTUAT Me tered Dose Inhaler [Spiriva] Spiriva Respimat 2.5 MCG/ACT Spiriva Respimat 2.5 MCG/ACT 09/04/2019 12:00:00 AM EDT 2.0 {puffs} suspended Spiriva Respimat 2 .5 MCG/ACT eCW1 (Formerly [facility]) Morphine Sulfate 15 MG Extended Release Oral Tablet Mo rphine Sulfate ER 15 MG Morphine Sulfate ER 15 MG 09/03/2019 12:00:00 AM EDT active Morphine Sulfate ER 15 MG eCW1 (Formerly [facility]) Morphine Sulfate 15 MG Extended Release Oral Tablet Mo rphine Sulfate ER 15 MG Morphine Sulfate ER 15 MG 09/03/2019 12:00:00 AM EDT active Morphine Sulfate ER 15 MG eCW1 (Formerly [facility]) Morphine Sulfate 15 MG Extended Release Oral Tablet Mo rphine Sulfate ER 15 MG Morphine Sulfate ER 15 MG 09/03/2019 12:00:00 AM EDT active Morphine Sulfate ER 15 MG eCW1 (Formerly [facility]) Morphine Sulfate 15 MG Extended Release Oral Tablet Mo rphine Sulfate ER 15 MG Morphine Sulfate ER 15 MG 09/03/2019 12:00:00 AM EDT active Morphine Sulfate ER 15 MG eCW1 (Formerly [facility]) Morphine Sulfate 15 MG Extended Release Oral Tablet Mo rphine Sulfate ER 15 MG Morphine Sulfate ER 15 MG 09/03/2019 12:00:00 AM EDT active Morphine Sulfate ER 15 MG eCW1 (Formerly [facility]) Morphine Sulfate 15 MG Extended Release Oral Tablet Mo rphine Sulfate ER 15 MG Morphine Sulfate ER 15 MG 09/03/2019 12:00:00 AM EDT active Morphine Sulfate ER 15 MG eCW1 (Formerly [facility]) Morphine Sulfate 15 MG Extended Release Oral Tablet Mo rphine Sulfate ER 15 MG Morphine Sulfate ER 15 MG 09/03/2019 12:00:00 AM EDT active Morphine Sulfate ER 15 MG eCW1 (Formerly [facility]) Morphine Sulfate 15 MG Extended Release Oral Tablet Mo rphine Sulfate ER 15 MG Morphine Sulfate ER 15 MG 09/03/2019 12:00:00 AM EDT active Morphine Sulfate ER 15 MG eCW1 (Formerly [facility]) Morphine Sulfate 15 MG Extended Release Oral Tablet Mo rphine Sulfate ER 15 MG Morphine Sulfate ER 15 MG 09/03/2019 12:00:00 AM EDT active Morphine Sulfate ER 15 MG eCW1 (Formerly [facility]) Morphine Sulfate 15 MG Extended Release Oral Tablet Mo rphine Sulfate ER 15 MG Morphine Sulfate ER 15 MG 09/03/2019 12:00:00 AM EDT active Morphine Sulfate ER 15 MG eCW1 (Formerly [facility]) 50 mg 08/27/2019 12:00:00 AM EDT tablet [...] Primidone 08/26/2019 12:00:00 AM EDT completed MEDENT ([facility], ) 200 ACTUAT Albuterol 0.09 MG/ACTUAT Mete red Dose Inhaler [Ventolin] Ventolin HFA 108 (90 Base) MCG/ACT Ventolin HFA 108 (90 Base) MCG/ACT 08/25/2019 12:00:00 AM EDT 1.0 {puff_as_needed} suspended Ventolin HFA 108 (90 Base) MCG/ACT eCW1 (Formerly [facility]) 200 ACTUAT Albuterol 0.09 MG/ACTUAT Mete red Dose Inhaler [Ventolin] Ventolin HFA 108 (90 Base) MCG/ACT Ventolin HFA 108 (90 Base) MCG/ACT 08/25/2019 12:00:00 AM EDT 1.0 {puff_as_needed} suspended Ventolin HFA 108 (90 Base) MCG/ACT eCW1 (Formerly [facility]) 200 ACTUAT Albuterol 0.09 MG/ACTUAT Mete red Dose Inhaler [Ventolin] Ventolin HFA 108 (90 Base) MCG/ACT Ventolin HFA 108 (90 Base) MCG/ACT 08/25/2019 12:00:00 AM EDT 1.0 {puff_as_needed} suspended Ventolin HFA 108 (90 Base) MCG/ACT eCW1 (Formerly [facility]) 200 ACTUAT Albuterol 0.09 MG/ACTUAT Mete red Dose Inhaler [Ventolin] Ventolin HFA 108 (90 Base) MCG/ACT Ventolin HFA 108 (90 Base) MCG/ACT 08/25/2019 12:00:00 AM EDT 1.0 {puff_as_needed} suspended Ventolin HFA 108 (90 Base) MCG/ACT eCW1 (Formerly [facility]) 200 ACTUAT Albuterol 0.09 MG/ACTUAT Mete red Dose Inhaler [Ventolin] Ventolin HFA 108 (90 Base) MCG/ACT Ventolin HFA 108 (90 Base) MCG/ACT 08/25/2019 12:00:00 AM EDT 1.0 {puff_as_needed} suspended Ventolin HFA 108 (90 Base) MCG/ACT eCW1 (Formerly [facility]) 200 ACTUAT Albuterol 0.09 MG/ACTUAT Mete red Dose Inhaler [Ventolin] Ventolin HFA 108 (90 Base) MCG/ACT Ventolin HFA 108 (90 Base) MCG/ACT 08/25/2019 12:00:00 AM EDT 1.0 {puff_as_needed} active Jovani tolin HFA 108 (90 Base) MCG/ACT eCW1 (Formerly [facility]) 200 ACTUAT Albuterol 0.09 MG/ACTUAT Mete red Dose Inhaler [Ventolin] Ventolin HFA 108 (90 Base) MCG/ACT Ventolin HFA 108 (90 Base) MCG/ACT 08/25/2019 12:00:00 AM EDT 1.0 {puff_as_needed} suspended Ventolin HFA 108 (90 Base) MCG/ACT eCW1 (Formerly [facility]) tiotropium 0.018 MG/ACTUAT Inhalant Powder [Spiriva] S piriva HandiHaler 18 MCG Spiriva HandiHaler 18 MCG 08/25/2019 12:00:00 AM EDT active Spiriva HandiHaler 18 MCG eCW1 (Formerly [facility]) 200 ACTUAT Albuterol 0.09 MG/ACTUAT Mete red Dose Inhaler [Ventolin] Ventolin HFA 108 (90 Base) MCG/ACT Ventolin HFA 108 (90 Base) MCG/ACT 08/25/2019 12:00:00 AM EDT 1.0 {puff_as_needed} suspended Ventolin HFA 108 (90 Base) MCG/ACT eCW1 (Formerly [facility]) tiotropium 0.018 MG/ACTUAT Inhalant Powder [Spiriva] S piriva HandiHaler 18 MCG Spiriva HandiHaler 18 MCG 08/25/2019 12:00:00 AM EDT active Spiriva HandiHaler 18 MCG eCW1 (Formerly [facility]) 200 ACTUAT Albuterol 0.09 MG/ACTUAT Mete red Dose Inhaler [Ventolin] Ventolin HFA 108 (90 Base) MCG/ACT Ventolin HFA 108 (90 Base) MCG/ACT 08/25/2019 12:00:00 AM EDT 1.0 {puff_as_needed} suspended Ventolin HFA 108 (90 Base) MCG/ACT eCW1 (Formerly [facility]) 200 ACTUAT Albuterol 0.09 MG/ACTUAT Mete red Dose Inhaler [Ventolin] Ventolin HFA 108 (90 Base) MCG/ACT Ventolin HFA 108 (90 Base) MCG/ACT 08/25/2019 12:00:00 AM EDT 1.0 {puff_as_needed} active Jovani tolin HFA 108 (90 Base) MCG/ACT eCW1 (Formerly [facility]) 200 ACTUAT Albuterol 0.09 MG/ACTUAT Mete red Dose Inhaler [Ventolin] Ventolin HFA 108 (90 Base) MCG/ACT Ventolin HFA 108 (90 Base) MCG/ACT 08/25/2019 12:00:00 AM EDT 1.0 {puff_as_needed} suspended Ventolin HFA 108 (90 Base) MCG/ACT eCW1 (Formerly [facility]) 200 ACTUAT Albuterol 0.09 MG/ACTUAT Mete red Dose Inhaler [Ventolin] Ventolin HFA 108 (90 Base) MCG/ACT Ventolin HFA 108 (90 Base) MCG/ACT 08/25/2019 12:00:00 AM EDT 1.0 {puff_as_needed} suspended Ventolin HFA 108 (90 Base) MCG/ACT eCW1 (Formerly [facility]) 200 ACTUAT Albuterol 0.09 MG/ACTUAT Mete red Dose Inhaler [Ventolin] Ventolin HFA 108 (90 Base) MCG/ACT Ventolin HFA 108 (90 Base) MCG/ACT 08/25/2019 12:00:00 AM EDT 1.0 {puff_as_needed} active Jovani tolin HFA 108 (90 Base) MCG/ACT eCW1 (Formerly [facility]) tiotropium 0.018 MG/ACTUAT Inhalant Powder [Spiriva] S piriva HandiHaler 18 MCG Spiriva HandiHaler 18 MCG 08/25/2019 12:00:00 AM EDT active Spiriva HandiHaler 18 MCG eCW1 (Formerly [facility]) 200 ACTUAT Albuterol 0.09 MG/ACTUAT Mete red Dose Inhaler [Ventolin] Ventolin HFA 108 (90 Base) MCG/ACT Ventolin HFA 108 (90 Base) MCG/ACT 08/25/2019 12:00:00 AM EDT 1.0 {puff_as_needed} suspended Ventolin HFA 108 (90 Base) MCG/ACT eCW1 (Formerly [facility]) 200 ACTUAT Albuterol 0.09 MG/ACTUAT Mete red Dose Inhaler [Ventolin] Ventolin HFA 108 (90 Base) MCG/ACT Ventolin HFA 108 (90 Base) MCG/ACT 08/25/2019 12:00:00 AM EDT 1.0 {puff_as_needed} suspended Ventolin HFA 108 (90 Base) MCG/ACT eCW1 (Formerly [facility]) 200 ACTUAT Albuterol 0.09 MG/ACTUAT Mete red Dose Inhaler [Ventolin] Ventolin HFA 108 (90 Base) MCG/ACT Ventolin HFA 108 (90 Base) MCG/ACT 08/25/2019 12:00:00 AM EDT 1.0 {puff_as_needed} suspended Ventolin HFA 108 (90 Base) MCG/ACT eCW1 (Formerly [facility]) 200 ACTUAT Albuterol 0.09 MG/ACTUAT Mete red Dose Inhaler [Ventolin] Ventolin HFA 108 (90 Base) MCG/ACT Ventolin HFA 108 (90 Base) MCG/ACT 08/25/2019 12:00:00 AM EDT 1.0 {puff_as_needed} active Jovani tolin HFA 108 (90 Base) MCG/ACT eCW1 (Formerly [facility]) 200 ACTUAT Albuterol 0.09 MG/ACTUAT Mete red Dose Inhaler [Ventolin] Ventolin HFA 108 (90 Base) MCG/ACT Ventolin HFA 108 (90 Base) MCG/ACT 08/25/2019 12:00:00 AM EDT 1.0 {puff_as_needed} suspended Ventolin HFA 108 (90 Base) MCG/ACT eCW1 (Formerly [facility]) tiotropium 0.018 MG/ACTUAT Inhalant Powder [Spiriva] S piriva HandiHaler 18 MCG Spiriva HandiHaler 18 MCG 08/25/2019 12:00:00 AM EDT active Spiriva HandiHaler 18 MCG eCW1 (Formerly [facility]) 200 ACTUAT Albuterol 0.09 MG/ACTUAT Mete red Dose Inhaler [Ventolin] Ventolin HFA 108 (90 Base) MCG/ACT Ventolin HFA 108 (90 Base) MCG/ACT 08/25/2019 12:00:00 AM EDT 1.0 {puff_as_needed} suspended Ventolin HFA 108 (90 Base) MCG/ACT eCW1 (Formerly [facility]) 200 ACTUAT Albuterol 0.09 MG/ACTUAT Mete red Dose Inhaler [Ventolin] Ventolin HFA 108 (90 Base) MCG/ACT Ventolin HFA 108 (90 Base) MCG/ACT 08/25/2019 12:00:00 AM EDT 1.0 {puff_as_needed} suspended Ventolin HFA 108 (90 Base) MCG/ACT eCW1 (Formerly [facility]) 200 ACTUAT Albuterol 0.09 MG/ACTUAT Mete red Dose Inhaler [Ventolin] Ventolin HFA 108 (90 Base) MCG/ACT Ventolin HFA 108 (90 Base) MCG/ACT 08/25/2019 12:00:00 AM EDT 1.0 {puff_as_needed} suspended Ventolin HFA 108 (90 Base) MCG/ACT eCW1 (Formerly [facility]) tiotropium 0.018 MG/ACTUAT Inhalant Powder [Spiriva] S piriva HandiHaler 18 MCG Spiriva HandiHaler 18 MCG 08/25/2019 12:00:00 AM EDT active Spiriva HandiHaler 18 MCG eCW1 (Formerly [facility]) 200 ACTUAT Albuterol 0.09 MG/ACTUAT Mete red Dose Inhaler [Ventolin] Ventolin HFA 108 (90 Base) MCG/ACT Ventolin HFA 108 (90 Base) MCG/ACT 08/25/2019 12:00:00 AM EDT 1.0 {puff_as_needed} suspended Ventolin HFA 108 (90 Base) MCG/ACT eCW1 (Formerly [facility]) 200 ACTUAT Albuterol 0.09 MG/ACTUAT Mete red Dose Inhaler [Ventolin] Ventolin HFA 108 (90 Base) MCG/ACT Ventolin HFA 108 (90 Base) MCG/ACT 08/25/2019 12:00:00 AM EDT 1.0 {puff_as_needed} active Jovani tolin HFA 108 (90 Base) MCG/ACT eCW1 (Formerly [facility]) 200 ACTUAT Albuterol 0.09 MG/ACTUAT Mete red Dose Inhaler [Ventolin] Ventolin HFA 108 (90 Base) MCG/ACT Ventolin HFA 108 (90 Base) MCG/ACT 08/25/2019 12:00:00 AM EDT 1.0 {puff_as_needed} suspended Ventolin HFA 108 (90 Base) MCG/ACT eCW1 (Formerly [facility]) tiotropium 0.018 MG/ACTUAT Inhalant Powder [Spiriva] S piriva HandiHaler 18 MCG Spiriva HandiHaler 18 MCG 08/25/2019 12:00:00 AM EDT active Spiriva HandiHaler 18 MCG eCW1 (Formerly [facility]) tiotropium 0.018 MG/ACTUAT Inhalant Powder [Spiriva] S piriva HandiHaler 18 MCG Spiriva HandiHaler 18 MCG 08/25/2019 12:00:00 AM EDT active Spiriva HandiHaler 18 MCG eCW1 (Formerly [facility]) 200 ACTUAT Albuterol 0.09 MG/ACTUAT Mete red Dose Inhaler [Ventolin] Ventolin HFA 108 (90 Base) MCG/ACT Ventolin HFA 108 (90 Base) MCG/ACT 08/25/2019 12:00:00 AM EDT 1.0 {puff_as_needed} active Jovani tolin HFA 108 (90 Base) MCG/ACT eCW1 (Formerly [facility]) tiotropium 0.018 MG/ACTUAT Inhalant Powder [Spiriva] S piriva HandiHaler 18 MCG Spiriva HandiHaler 18 MCG 08/25/2019 12:00:00 AM EDT active Spiriva HandiHaler 18 MCG eCW1 (Formerly [facility]) 200 ACTUAT Albuterol 0.09 MG/ACTUAT Mete red Dose Inhaler [Ventolin] Ventolin HFA 108 (90 Base) MCG/ACT Ventolin HFA 108 (90 Base) MCG/ACT 08/25/2019 12:00:00 AM EDT 1.0 {puff_as_needed} active Jovani tolin HFA 108 (90 Base) MCG/ACT eCW1 (Formerly [facility]) 200 ACTUAT Albuterol 0.09 MG/ACTUAT Mete red Dose Inhaler [Ventolin] Ventolin HFA 108 (90 Base) MCG/ACT Ventolin HFA 108 (90 Base) MCG/ACT 08/25/2019 12:00:00 AM EDT 1.0 {puff_as_needed} suspended Ventolin HFA 108 (90 Base) MCG/ACT eCW1 (Formerly [facility]) 200 ACTUAT Albuterol 0.09 MG/ACTUAT Mete red Dose Inhaler [Ventolin] Ventolin HFA 108 (90 Base) MCG/ACT Ventolin HFA 108 (90 Base) MCG/ACT 08/25/2019 12:00:00 AM EDT 1.0 {puff_as_needed} suspended Ventolin HFA 108 (90 Base) MCG/ACT eCW1 (Formerly [facility]) 200 ACTUAT Albuterol 0.09 MG/ACTUAT Mete red Dose Inhaler [Ventolin] Ventolin HFA 108 (90 Base) MCG/ACT Ventolin HFA 108 (90 Base) MCG/ACT 08/25/2019 12:00:00 AM EDT 1.0 {puff_as_needed} active Jovani tolin HFA 108 (90 Base) MCG/ACT eCW1 (Formerly [facility]) 10-325 mg 08/15/2019 12:00:00 AM EDT tablet [...] {tablet_as_needed} suspended Percocet 10 -325 MG eCW1 (Formerly [facility]) Acetaminophen 325 MG / Oxycodone Hydroch loride 10 MG Oral Tablet [Percocet] Percocet 10-325 MG Percocet 10-325 MG 08/07/2019 12:00:00 AM EDT 1.0 {tablet_as_needed} active Percocet 10-3 25 MG eCW1 (Formerly [facility]) Acetaminophen 325 MG / Oxycodone Hydroch loride 10 MG Oral Tablet [Percocet] Percocet 10-325 MG Percocet 10-325 MG 08/07/2019 12:00:00 AM EDT 1.0 {tablet_as_needed} suspended Percocet 10 -325 MG eCW1 (Formerly [facility]) Acetaminophen 325 MG / Oxycodone Hydroch loride 10 MG Oral Tablet [Percocet] Percocet 10-325 MG Percocet 10-325 MG 08/07/2019 12:00:00 AM EDT 1.0 {tablet_as_needed} suspended Percocet 10 -325 MG eCW1 (Formerly [facility]) Acetaminophen 325 MG / Oxycodone Hydroch loride 10 MG Oral Tablet [Percocet] Percocet 10-325 MG Percocet 10-325 MG 08/07/2019 12:00:00 AM EDT 1.0 {tablet_as_needed} active Percocet 10-3 25 MG eCW1 (Formerly [facility]) Acetaminophen 325 MG / Oxycodone Hydroch loride 10 MG Oral Tablet [Percocet] Percocet 10-325 MG Percocet 10-325 MG 08/07/2019 12:00:00 AM EDT 1.0 {tablet_as_needed} active Percocet 10-3 25 MG eCW1 (Formerly [facility]) Acetaminophen 325 MG / Oxycodone Hydroch loride 10 MG Oral Tablet [Percocet] Percocet 10-325 MG Percocet 10-325 MG 08/07/2019 12:00:00 AM EDT 1.0 {tablet_as_needed} active Percocet 10-3 25 MG eCW1 (Formerly [facility]) Acetaminophen 325 MG / Oxycodone Hydroch loride 10 MG Oral Tablet [Percocet] Percocet 10-325 MG Percocet 10-325 MG 08/07/2019 12:00:00 AM EDT 1.0 {tablet_as_needed} suspended Percocet 10 -325 MG eCW1 (Formerly [facility]) Acetaminophen 325 MG / Oxycodone Hydroch loride 10 MG Oral Tablet [Percocet] Percocet 10-325 MG Percocet 10-325 MG 08/07/2019 12:00:00 AM EDT 1.0 {tablet_as_needed} active Percocet 10-3 25 MG eCW1 (Formerly [facility]) Acetaminophen 325 MG / Oxycodone Hydroch loride 10 MG Oral Tablet [Percocet] Percocet 10-325 MG Percocet 10-325 MG 08/07/2019 12:00:00 AM EDT 1.0 {tablet_as_needed} suspended Percocet 10 -325 MG eCW1 (Formerly [facility]) Acetaminophen 325 MG / Oxycodone Hydroch loride 10 MG Oral Tablet [Percocet] Percocet 10-325 MG Percocet 10-325 MG 08/07/2019 12:00:00 AM EDT 1.0 {tablet_as_needed} suspended Percocet 10 -325 MG eCW1 (Formerly [facility]) Acetaminophen 325 MG / Oxycodone Hydroch loride 10 MG Oral Tablet [Percocet] Percocet 10-325 MG Percocet 10-325 MG 08/07/2019 12:00:00 AM EDT 1.0 {tablet_as_needed} active Percocet 10-3 25 MG eCW1 (Formerly [facility]) Acetaminophen 325 MG / Oxycodone Hydroch loride 10 MG Oral Tablet [Percocet] Percocet 10-325 MG Percocet 10-325 MG 08/07/2019 12:00:00 AM EDT 1.0 {tablet_as_needed} active Percocet 10-3 25 MG eCW1 (Formerly [facility]) Acetaminophen 325 MG / Oxycodone Hydroch loride 10 MG Oral Tablet [Percocet] Percocet 10-325 MG Percocet 10-325 MG 08/07/2019 12:00:00 AM EDT 1.0 {tablet_as_needed} suspended Percocet 10 -325 MG eCW1 (Formerly [facility]) Acetaminophen 325 MG / Oxycodone Hydroch loride 10 MG Oral Tablet [Percocet] Percocet 10-325 MG Percocet 10-325 MG 08/07/2019 12:00:00 AM EDT 1.0 {tablet_as_needed} active Percocet 10-3 25 MG eCW1 (Formerly [facility]) Acetaminophen 325 MG / Oxycodone Hydroch loride 10 MG Oral Tablet [Percocet] Percocet 10-325 MG Percocet 10-325 MG 08/07/2019 12:00:00 AM EDT 1.0 {tablet_as_needed} suspended Percocet 10 -325 MG eCW1 (Formerly [facility]) Acetaminophen 325 MG / Oxycodone Hydroch loride 10 MG Oral Tablet [Percocet] Percocet 10-325 MG Percocet 10-325 MG 08/07/2019 12:00:00 AM EDT 1.0 {tablet_as_needed} active Percocet 10-3 25 MG eCW1 (Formerly [facility]) Acetaminophen 325 MG / Oxycodone Hydroch loride 10 MG Oral Tablet [Percocet] Percocet 10-325 MG Percocet 10-325 MG 08/07/2019 12:00:00 AM EDT 1.0 {tablet_as_needed} suspended Percocet 10 -325 MG eCW1 (Formerly [facility]) Acetaminophen 325 MG / Oxycodone Hydroch loride 10 MG Oral Tablet [Percocet] Percocet 10-325 MG Percocet 10-325 MG 08/07/2019 12:00:00 AM EDT 1.0 {tablet_as_needed} suspended Percocet 10 -325 MG eCW1 (Formerly [facility]) Acetaminophen 325 MG / Oxycodone Hydroch loride 10 MG Oral Tablet [Percocet] Percocet 10-325 MG Percocet 10-325 MG 08/07/2019 12:00:00 AM EDT 1.0 {tablet_as_needed} active Percocet 10-3 25 MG eCW1 (Formerly [facility]) Acetaminophen 325 MG / Oxycodone Hydroch loride 10 MG Oral Tablet [Percocet] Percocet 10-325 MG Percocet 10-325 MG 08/07/2019 12:00:00 AM EDT 1.0 {tablet_as_needed} suspended Percocet 10 -325 MG eCW1 (Formerly [facility]) Acetaminophen 325 MG / Oxycodone Hydroch loride 10 MG Oral Tablet [Percocet] Percocet 10-325 MG Percocet 10-325 MG 08/07/2019 12:00:00 AM EDT 1.0 {tablet_as_needed} suspended Percocet 10 -325 MG eCW1 (Formerly [facility]) Acetaminophen 325 MG / Oxycodone Hydroch loride 10 MG Oral Tablet [Percocet] Percocet 10-325 MG Percocet 10-325 MG 08/07/2019 12:00:00 AM EDT 1.0 {tablet_as_needed} active Percocet 10-3 25 MG eCW1 (Formerly [facility]) Acetaminophen 325 MG / Oxycodone Hydroch loride 10 MG Oral Tablet [Percocet] Percocet 10-325 MG Percocet 10-325 MG 08/07/2019 12:00:00 AM EDT 1.0 {tablet_as_needed} active Percocet 10-3 25 MG eCW1 (Formerly [facility]) Acetaminophen 325 MG / Oxycodone Hydroch loride 10 MG Oral Tablet [Percocet] Percocet 10-325 MG Percocet 10-325 MG 08/07/2019 12:00:00 AM EDT 1.0 {tablet_as_needed} active Percocet 10-3 25 MG eCW1 (Formerly [facility]) Acetaminophen 325 MG / Oxycodone Hydroch loride 10 MG Oral Tablet [Percocet] Percocet 10-325 MG Percocet 10-325 MG 08/07/2019 12:00:00 AM EDT 1.0 {tablet_as_needed} active Percocet 10-3 25 MG eCW1 (Formerly [facility]) Acetaminophen 325 MG / Oxycodone Hydroch loride 10 MG Oral Tablet [Percocet] Percocet 10-325 MG Percocet 10-325 MG 08/07/2019 12:00:00 AM EDT 1.0 {tablet_as_needed} active Percocet 10-3 25 MG eCW1 (Formerly [facility]) Acetaminophen 325 MG / Oxycodone Hydroch loride 10 MG Oral Tablet [Percocet] Percocet 10-325 MG Percocet 10-325 MG 08/07/2019 12:00:00 AM EDT 1.0 {tablet_as_needed} active Percocet 10-3 25 MG eCW1 (Formerly [facility]) Acetaminophen 325 MG / Oxycodone Hydroch loride 10 MG Oral Tablet [Percocet] Percocet 10-325 MG Percocet 10-325 MG 08/07/2019 12:00:00 AM EDT 1.0 {tablet_as_needed} active Percocet 10-3 25 MG eCW1 (Formerly [facility]) 15 mg 08/06/2019 12:00:00 AM EDT tablet [...] MOUTH EVERY MORNING WITH FOOD SOLD: 08/05/2019 [facility] Propranolol Hydrochloride 10 MG Oral Tablet Propranolo l HCl 10 MG Propranolol HCl 10 MG 08/04/2019 12:00:00 AM EDT 1.0 {tablet} ac tive Propranolol HCl 10 MG eCW1 (Formerly [facility]) Chlorthalidone 25 MG Oral Tablet Chlorthalidone 25 MG 2019 12:00:00 AM EDT 1.0 {tablet_in_the_morning_with_food} active Chlorthalidone 25 MG eCW1 (Formerly [facility]) 10 mg 08/04/2019 12:00:00 AM EDT tablet 60 TAKE ONE TABLET BY MOUTH TWICE A DAY TAKE ONE TABLET BY MOUTH TWICE A DAY SOLD: 08/05/2019 [facility] Morphine Sulfate 15 MG Extended Release Oral Tablet Mo rphine Sulfate ER 15 MG Morphine Sulfate ER 15 MG 07/28/2019 12:00:00 AM EDT active Morphine Sulfate ER 15 MG eCW1 (Formerly [facility]) Morphine Sulfate 15 MG Extended Release Oral Tablet Mo rphine Sulfate ER 15 MG Morphine Sulfate ER 15 MG 07/28/2019 12:00:00 AM EDT active Morphine Sulfate ER 15 MG eCW1 (Formerly [facility]) Morphine Sulfate 15 MG Extended Release Oral Tablet Mo rphine Sulfate ER 15 MG Morphine Sulfate ER 15 MG 07/28/2019 12:00:00 AM EDT active Morphine Sulfate ER 15 MG eCW1 (Formerly [facility]) Morphine Sulfate 15 MG Extended Release Oral Tablet Mo rphine Sulfate ER 15 MG Morphine Sulfate ER 15 MG 07/28/2019 12:00:00 AM EDT active Morphine Sulfate ER 15 MG eCW1 (Formerly [facility]) Morphine Sulfate 15 MG Extended Release Oral Tablet Mo rphine Sulfate ER 15 MG Morphine Sulfate ER 15 MG 07/28/2019 12:00:00 AM EDT active Morphine Sulfate ER 15 MG eCW1 (Formerly [facility]) 300 mg 07/28/2019 12:00:00 AM EDT capsule [...] active Morphine Sulfate ER 15 MG eCW1 (Formerly [facility]) Morphine Sulfate 15 MG Extended Release Oral Tablet Mo rphine Sulfate ER 15 MG Morphine Sulfate ER 15 MG 07/28/2019 12:00:00 AM EDT active Morphine Sulfate ER 15 MG eCW1 (Formerly [facility]) 300 mg 07/28/2019 12:00:00 AM EDT capsule [...] active Morphine Sulfate ER 15 MG eCW1 (Formerly [facility]) Morphine Sulfate 15 MG Extended Release Oral Tablet Mo rphine Sulfate ER 15 MG Morphine Sulfate ER 15 MG 07/28/2019 12:00:00 AM EDT active Morphine Sulfate ER 15 MG eCW1 (Formerly [facility]) Morphine Sulfate 15 MG Extended Release Oral Tablet Mo rphine Sulfate ER 15 MG Morphine Sulfate ER 15 MG 07/28/2019 12:00:00 AM EDT active Morphine Sulfate ER 15 MG eCW1 (Formerly [facility]) 10-325 mg 07/17/2019 12:00:00 AM EDT tablet [...] AM EDT active 1 tablet as needed [facility] ([facility]) Amitriptyline Hydrochloride 25 MG Oral Tablet AMITRIPTYLINE [...] active Morphine Sulfate ER 15 MG eCW1 (Formerly [facility]) Morphine Sulfate 15 MG Extended Release Oral Tablet Mo rphine Sulfate ER 15 MG Morphine Sulfate ER 15 MG 07/07/2019 12:00:00 AM EDT active Morphine Sulfate ER 15 MG eCW1 (Formerly [facility]) Morphine Sulfate 15 MG Extended Release Oral Tablet Mo rphine Sulfate ER 15 MG Morphine Sulfate ER 15 MG 07/07/2019 12:00:00 AM EDT active Morphine Sulfate ER 15 MG eCW1 (Formerly [facility]) Morphine Sulfate 15 MG Extended Release Oral Tablet Mo rphine Sulfate ER 15 MG Morphine Sulfate ER 15 MG 07/07/2019 12:00:00 AM EDT active 1 to 2 as directed eCW1 (Formerly [facility]) 15 mg 07/07/2019 12:00:00 AM EDT tablet [...] {tablet_as_needed} active Percocet 10-3 25 MG eCW1 (Formerly [facility]) Acetaminophen 325 MG / Oxycodone Hydroch loride 10 MG Oral Tablet [Percocet] Percocet 10-325 MG Percocet 10-325 MG 06/17/2019 12:00:00 AM EDT 1.0 {tablet_as_needed} active Percocet 10-3 25 MG eCW1 (Formerly [facility]) Acetaminophen 325 MG / Oxycodone Hydroch loride 10 MG Oral Tablet [Percocet] Percocet 10-325 MG Percocet 10-325 MG 06/17/2019 12:00:00 AM EDT 1.0 {tablet_as_needed} active Percocet 10-3 25 MG eCW1 (Formerly [facility]) Acetaminophen 325 MG / Oxycodone Hydroch loride 10 MG Oral Tablet [Percocet] Percocet 10-325 MG Percocet 10-325 MG 06/17/2019 12:00:00 AM EDT 1.0 {tablet_as_needed} active Percocet 10-3 25 MG eCW1 (Formerly [facility]) Acetaminophen 325 MG / Oxycodone Hydroch loride 10 MG Oral Tablet [Percocet] Percocet 10-325 MG Percocet 10-325 MG 06/17/2019 12:00:00 AM EDT active 1 tablet as needed eCW1 ([facility]) Acetaminophen 325 MG / Oxycodone Hydroch loride 10 MG Oral Tablet [Percocet] Percocet 10-325 MG Percocet 10-325 MG 06/17/2019 12:00:00 AM EDT 1.0 {tablet_as_needed} active Percocet 10-3 25 MG eCW1 (Formerly [facility]) Acetaminophen 325 MG / Oxycodone Hydroch loride 10 MG Oral Tablet [Percocet] Percocet 10-325 MG Percocet 10-325 MG 06/17/2019 12:00:00 AM EDT 1.0 {tablet_as_needed} active Percocet 10-3 25 MG eCW1 (Formerly [facility]) Acetaminophen 325 MG / Oxycodone Hydroch loride 10 MG Oral Tablet [Percocet] Percocet 10-325 MG Percocet 10-325 MG 06/17/2019 12:00:00 AM EDT active 1 tablet as needed eCW1 ([facility]) 5 mg 06/11/2019 12:00:00 AM EDT tablet [...] active 1 to 2 as directed eCW1 (Formerly [facility]) Morphine Sulfate 15 MG Extended Release Oral Tablet Mo rphine Sulfate ER 15 MG Morphine Sulfate ER 15 MG 06/03/2019 12:00:00 AM EDT active 1 to 2 as directed eCW1 (Formerly [facility]) Morphine Sulfate 15 MG Extended Release Oral Tablet Mo rphine Sulfate ER 15 MG Morphine Sulfate ER 15 MG 06/03/2019 12:00:00 AM EDT active 1 to 2 as directed eCW1 (Formerly [facility]) 40 mg 06/03/2019 12:00:00 AM EDT tablet [...] EDT active 1 tablet as needed eCW1 ([facility]) Acetaminophen 325 MG / Oxycodone Hydroch loride 10 MG Oral Tablet [Percocet] Percocet 10-325 MG Percocet 10-325 MG 05/18/2019 12:00:00 AM EDT active 1 tablet as needed eCW1 ([facility]) Acetaminophen 325 MG / Oxycodone Hydroch loride 10 MG Oral Tablet [Percocet] Percocet 10-325 MG Percocet 10-325 MG 05/18/2019 12:00:00 AM EDT active 1 tablet as needed eCW1 ([facility]) 800 mg 05/16/2019 12:00:00 AM EDT tablet [...] active 1 to 2 as directed eCW1 (Formerly [facility]) Morphine Sulfate 15 MG Extended Release Oral Tablet Mo rphine Sulfate ER 15 MG Morphine Sulfate ER 15 MG 05/04/2019 12:00:00 AM EDT active 1 to 2 as directed eCW1 (Formerly [facility]) Morphine Sulfate 15 MG Extended Release Oral Tablet Mo rphine Sulfate ER 15 MG Morphine Sulfate ER 15 MG 05/04/2019 12:00:00 AM EDT active 1 to 2 as directed eCW1 (Formerly [facility]) 100,000 unit/gram 04/30/2019 12:00:00 AM EDT cream [...] EDT active 1 tablet as needed eCW1 ([facility]) 100,000 unit/gram 04/15/2019 12:00:00 AM EST cream [...] active 1 to 2 as directed eCW1 (Formerly [facility]) Morphine Sulfate 15 MG Extended Release Oral Tablet Mo rphine Sulfate ER 15 MG Morphine Sulfate ER 15 MG 04/08/2019 12:00:00 AM EST active 1 to 2 as directed eCW1 (Formerly [facility]) Amitriptyline Hydrochloride 25 MG Oral Tablet AMITRIPTYLINE [...] 10 days, Max Daily Dose: 20 mg [facility] 300 mg 03/27/2019 12:00:00 AM EST capsule [...] 12:00:00 AM EST active 1 tablet eCW1 (Formerly [facility]) atorvastatin 40 MG Oral Tablet Atorvastatin Calcium 40 MG Atorvastatin Calcium 40 MG 03/26/2019 12:00:00 AM EST 1.0 {tablet} activ e Atorvastatin Calcium 40 MG eCW1 (Formerly [facility]) atorvastatin 40 MG Oral Tablet Atorvastatin Calcium 40 MG Atorvastatin Calcium 40 MG 03/26/2019 12:00:00 AM EST 1.0 {tablet} activ e Atorvastatin Calcium 40 MG eCW1 (Formerly [facility]) atorvastatin 40 MG Oral Tablet Atorvastatin Calcium 40 MG Atorvastatin Calcium 40 MG 03/26/2019 12:00:00 AM EST 1.0 {tablet} activ e Atorvastatin Calcium 40 MG eCW1 (Formerly [facility]) atorvastatin 40 MG Oral Tablet Atorvastatin Calcium 40 MG Atorvastatin Calcium 40 MG 03/26/2019 12:00:00 AM EST active 1 tablet eCW1 (Formerly [facility]) atorvastatin 40 MG Oral Tablet Atorvastatin Calcium 40 MG Atorvastatin Calcium 40 MG 03/26/2019 12:00:00 AM EST 1.0 {tablet} activ e Atorvastatin Calcium 40 MG eCW1 (Formerly [facility]) atorvastatin 40 MG Oral Tablet Atorvastatin Calcium 40 MG Atorvastatin Calcium 40 MG 03/26/2019 12:00:00 AM EST active 1 tablet eCW1 (Formerly [facility]) atorvastatin 40 MG Oral Tablet Atorvastatin Calcium 40 MG Atorvastatin Calcium 40 MG 03/26/2019 12:00:00 AM EST 1.0 {tablet} activ e Atorvastatin Calcium 40 MG eCW1 (Formerly [facility]) atorvastatin 40 MG Oral Tablet Atorvastatin Calcium 40 MG Atorvastatin Calcium 40 MG 03/26/2019 12:00:00 AM EST 1.0 {tablet} activ e Atorvastatin Calcium 40 MG eCW1 (Formerly [facility]) atorvastatin 40 MG Oral Tablet Atorvastatin Calcium 40 MG Atorvastatin Calcium 40 MG 03/26/2019 12:00:00 AM EST 1.0 {tablet} activ e Atorvastatin Calcium 40 MG eCW1 (Formerly [facility]) atorvastatin 40 MG Oral Tablet Atorvastatin Calcium 40 MG Atorvastatin Calcium 40 MG 03/26/2019 12:00:00 AM EST 1.0 {tablet} activ e Atorvastatin Calcium 40 MG eCW1 (Formerly [facility]) atorvastatin 40 MG Oral Tablet Atorvastatin Calcium 40 MG Atorvastatin Calcium 40 MG 03/26/2019 12:00:00 AM EST 1.0 {tablet} activ e Atorvastatin Calcium 40 MG eCW1 (Formerly [facility]) atorvastatin 40 MG Oral Tablet Atorvastatin Calcium 40 MG Atorvastatin Calcium 40 MG 03/26/2019 12:00:00 AM EST 1.0 {tablet} activ e Atorvastatin Calcium 40 MG eCW1 (Formerly [facility]) atorvastatin 40 MG Oral Tablet Atorvastatin Calcium 40 MG Atorvastatin Calcium 40 MG 03/26/2019 12:00:00 AM EST 1.0 {tablet} activ e Atorvastatin Calcium 40 MG eCW1 (Formerly [facility]) atorvastatin 40 MG Oral Tablet Atorvastatin Calcium 40 MG Atorvastatin Calcium 40 MG 03/26/2019 12:00:00 AM EST 1.0 {tablet} activ e Atorvastatin Calcium 40 MG eCW1 (Formerly [facility]) atorvastatin 40 MG Oral Tablet Atorvastatin Calcium 40 MG Atorvastatin Calcium 40 MG 03/26/2019 12:00:00 AM EST 1.0 {tablet} activ e Atorvastatin Calcium 40 MG eCW1 (Formerly [facility]) atorvastatin 40 MG Oral Tablet Atorvastatin Calcium 40 MG Atorvastatin Calcium 40 MG 03/26/2019 12:00:00 AM EST 1.0 {tablet} activ e Atorvastatin Calcium 40 MG eCW1 (Formerly [facility]) 10-325 mg 03/26/2019 12:00:00 AM EST tablet [...] activ e Atorvastatin Calcium 40 MG eCW1 (Formerly [facility]) atorvastatin 40 MG Oral Tablet Atorvastatin Calcium 40 MG Atorvastatin Calcium 40 MG 03/26/2019 12:00:00 AM EST 1.0 {tablet} activ e Atorvastatin Calcium 40 MG eCW1 (Formerly [facility]) 1,250 mcg (50,000 unit) 03/26/2019 12:00:00 AM EST capsule 4 TAKE 1 CAPSULE BY MOUTH ONCE A WEEK ON MONDAYS TAKE 1 CAPSULE BY MOUTH ONCE A WEEK ON MONDAYS SOLD: 03/27/2019 [facility] atorvastatin 40 MG Oral Tablet Atorvastatin Calcium 40 MG Atorvastatin Calcium 40 MG 03/26/2019 12:00:00 AM EST 1.0 {tablet} activ e Atorvastatin Calcium 40 MG eCW1 (Formerly [facility]) atorvastatin 40 MG Oral Tablet Atorvastatin Calcium 40 MG Atorvastatin Calcium 40 MG 03/26/2019 12:00:00 AM EST 1.0 {tablet} activ e Atorvastatin Calcium 40 MG eCW1 (Formerly [facility]) atorvastatin 40 MG Oral Tablet Atorvastatin Calcium 40 MG Atorvastatin Calcium 40 MG 03/26/2019 12:00:00 AM EST 1.0 {tablet} activ e Atorvastatin Calcium 40 MG eCW1 (Formerly [facility]) atorvastatin 40 MG Oral Tablet Atorvastatin Calcium 40 MG Atorvastatin Calcium 40 MG 03/26/2019 12:00:00 AM EST 1.0 {tablet} activ e Atorvastatin Calcium 40 MG eCW1 (Formerly [facility]) atorvastatin 40 MG Oral Tablet Atorvastatin Calcium 40 MG Atorvastatin Calcium 40 MG 03/26/2019 12:00:00 AM EST 1.0 {tablet} activ e Atorvastatin Calcium 40 MG eCW1 (Formerly [facility]) atorvastatin 40 MG Oral Tablet Atorvastatin Calcium 40 MG Atorvastatin Calcium 40 MG 03/26/2019 12:00:00 AM EST 1.0 {tablet} activ e Atorvastatin Calcium 40 MG eCW1 (Formerly [facility]) atorvastatin 40 MG Oral Tablet Atorvastatin Calcium 40 MG Atorvastatin Calcium 40 MG 03/26/2019 12:00:00 AM EST 1.0 {tablet} activ e Atorvastatin Calcium 40 MG eCW1 (Formerly [facility]) atorvastatin 40 MG Oral Tablet Atorvastatin Calcium 40 MG Atorvastatin Calcium 40 MG 03/26/2019 12:00:00 AM EST 1.0 {tablet} activ e Atorvastatin Calcium 40 MG eCW1 (Formerly [facility]) atorvastatin 40 MG Oral Tablet Atorvastatin Calcium 40 MG Atorvastatin Calcium 40 MG 03/26/2019 12:00:00 AM EST 1.0 {tablet} activ e Atorvastatin Calcium 40 MG eCW1 (Formerly [facility]) atorvastatin 40 MG Oral Tablet Atorvastatin Calcium 40 MG Atorvastatin Calcium 40 MG 03/26/2019 12:00:00 AM EST 1.0 {tablet} activ e Atorvastatin Calcium 40 MG eCW1 (Formerly [facility]) atorvastatin 40 MG Oral Tablet Atorvastatin Calcium 40 MG Atorvastatin Calcium 40 MG 03/26/2019 12:00:00 AM EST 1.0 {tablet} activ e Atorvastatin Calcium 40 MG eCW1 (Formerly [facility]) atorvastatin 40 MG Oral Tablet Atorvastatin Calcium 40 MG Atorvastatin Calcium 40 MG 03/26/2019 12:00:00 AM EST 1.0 {tablet} activ e Atorvastatin Calcium 40 MG eCW1 (Formerly [facility]) atorvastatin 40 MG Oral Tablet Atorvastatin Calcium 40 MG Atorvastatin Calcium 40 MG 03/26/2019 12:00:00 AM EST active 1 tablet eCW1 ([facility]ly [facility]) atorvastatin 40 MG Oral Tablet Atorvastatin Calcium 40 MG Atorvastatin Calcium 40 MG 03/26/2019 12:00:00 AM EST 1.0 {tablet} activ e Atorvastatin Calcium 40 MG eCW1 (Formerly [facility]) atorvastatin 40 MG Oral Tablet Atorvastatin Calcium 40 MG Atorvastatin Calcium 40 MG 03/26/2019 12:00:00 AM EST 1.0 {tablet} activ e Atorvastatin Calcium 40 MG eCW1 (Formerly [facility]) atorvastatin 40 MG Oral Tablet Atorvastatin Calcium 40 MG Atorvastatin Calcium 40 MG 03/26/2019 12:00:00 AM EST 1.0 {tablet} activ e Atorvastatin Calcium 40 MG eCW1 ([facility]ly [facility]) atorvastatin 40 MG Oral Tablet Atorvastatin Calcium 40 MG Atorvastatin Calcium 40 MG 03/26/2019 12:00:00 AM EST 1.0 {tablet} activ e Atorvastatin Calcium 40 MG eCW1 ([facility]ly [facility]) atorvastatin 40 MG Oral Tablet Atorvastatin Calcium 40 MG Atorvastatin Calcium 40 MG 03/26/2019 12:00:00 AM EST 1.0 {tablet} activ e Atorvastatin Calcium 40 MG eCW1 (Formerly [facility]) atorvastatin 40 MG Oral Tablet Atorvastatin Calcium 40 MG Atorvastatin Calcium 40 MG 03/26/2019 12:00:00 AM EST 1.0 {tablet} activ e Atorvastatin Calcium 40 MG eCW1 ([facility]ly [facility]) atorvastatin 40 MG Oral Tablet Atorvastatin Calcium 40 MG Atorvastatin Calcium 40 MG 03/26/2019 12:00:00 AM EST 1.0 {tablet} activ e Atorvastatin Calcium 40 MG eCW1 ([facility]ly [facility]) atorvastatin 40 MG Oral Tablet Atorvastatin Calcium 40 MG Atorvastatin Calcium 40 MG 03/26/2019 12:00:00 AM EST 1.0 {tablet} activ e Atorvastatin Calcium 40 MG eCW1 ([facility]ly [facility]) atorvastatin 40 MG Oral Tablet Atorvastatin Calcium 40 MG Atorvastatin Calcium 40 MG 03/26/2019 12:00:00 AM EST 1.0 {tablet} activ e Atorvastatin Calcium 40 MG eCW1 ([facility]ly [facility]) atorvastatin 40 MG Oral Tablet Atorvastatin Calcium 40 MG Atorvastatin Calcium 40 MG 03/26/2019 12:00:00 AM EST 1.0 {tablet} activ e Atorvastatin Calcium 40 MG eCW1 ([facility]ly [facility]) atorvastatin 40 MG Oral Tablet Atorvastatin Calcium 40 MG Atorvastatin Calcium 40 MG 03/26/2019 12:00:00 AM EST 1.0 {tablet} activ e Atorvastatin Calcium 40 MG eCW1 (Formerly [facility]) Nystatin 549334 UNT/ML Topical Cream Nystatin [id number] U NIT/GM Nystatin [id number] UNIT/GM 03/26/2019 12:00:00 AM EST active 1 application 2g eCW1 ([facility]ly [facility]) atorvastatin 40 MG Oral Tablet Atorvastatin Calcium 40 MG Atorvastatin Calcium 40 MG 03/26/2019 12:00:00 AM EST 1.0 {tablet} activ e Atorvastatin Calcium 40 MG eCW1 (Formerly [facility]) Ergocalciferol 11951 UNT Oral Capsule Vi tamin D (Ergocalciferol) 1.25 MG (17113 UT) Oral Capsule (ERGOCALCIFEROL) Vitamin D (Ergocalciferol) 1.25 MG (5000 0 UT) Oral Capsule (ERGOCALCIFEROL) 03/26/2019 12:00:00 AM EST active [facility] Losartan Potassium 50 MG Oral Tablet [place] Potassium 50 MG Oral Tablet (COZAAR) Losartan Potassium 50 MG Oral Tablet (COZAAR) 03/26/19 20 12:00:00 AM EST active [facility] atorvastatin 40 MG Oral Tablet Atorvastatin Calcium 40 MG Oral Tablet (LIPITOR) Atorvastatin Calcium 40 MG Oral Tablet (LIPITOR) 03/26/2019 12:00:00 AM EST active [facility] atorvastatin 40 MG Oral Tablet Atorvastatin Calcium 40 MG Atorvastatin Calcium 40 MG 03/26/2019 12:00:00 AM EST active 1 tablet eCW1 (Formerly [facility]) atorvastatin 40 MG Oral Tablet Atorvastatin Calcium 40 MG Atorvastatin Calcium 40 MG 03/26/2019 12:00:00 AM EST 1.0 {tablet} activ e Atorvastatin Calcium 40 MG eCW1 (Formerly [facility]) atorvastatin 40 MG Oral Tablet Atorvastatin Calcium 40 MG Atorvastatin Calcium 40 MG 03/26/2019 12:00:00 AM EST 1.0 {tablet} activ e Atorvastatin Calcium 40 MG eCW1 (Formerly [facility]) atorvastatin 40 MG Oral Tablet Atorvastatin Calcium 40 MG Atorvastatin Calcium 40 MG 03/26/2019 12:00:00 AM EST 1.0 {tablet} activ e Atorvastatin Calcium 40 MG eCW1 (Formerly [facility]) Nystatin 342737 UNT/ML Topical Cream Nystatin 743552 U NIT/GM Nystatin 355994 UNIT/GM 03/26/2019 12:00:00 AM EST active 1 application 2g eCW1 (Formerly [facility]) atorvastatin 40 MG Oral Tablet Atorvastatin Calcium 40 MG Atorvastatin Calcium 40 MG 03/26/2019 12:00:00 AM EST 1.0 {tablet} activ e Atorvastatin Calcium 40 MG eCW1 (Formerly [facility]) atorvastatin 40 MG Oral Tablet Atorvastatin Calcium 40 MG Atorvastatin Calcium 40 MG 03/26/2019 12:00:00 AM EST 1.0 {tablet} activ e Atorvastatin Calcium 40 MG eCW1 (Formerly [facility]) atorvastatin 40 MG Oral Tablet Atorvastatin Calcium 40 MG Atorvastatin Calcium 40 MG 03/26/2019 12:00:00 AM EST 1.0 {tablet} activ e Atorvastatin Calcium 40 MG eCW1 (Formerly [facility]) atorvastatin 40 MG Oral Tablet Atorvastatin Calcium 40 MG Atorvastatin Calcium 40 MG 03/26/2019 12:00:00 AM EST 1.0 {tablet} activ e Atorvastatin Calcium 40 MG eCW1 (Formerly [facility]) atorvastatin 40 MG Oral Tablet Atorvastatin Calcium 40 MG Atorvastatin Calcium 40 MG 03/26/2019 12:00:00 AM EST active 1 tablet eCW1 (Formerly [facility]) atorvastatin 40 MG Oral Tablet Atorvastatin Calcium 40 MG Atorvastatin Calcium 40 MG 03/26/2019 12:00:00 AM EST 1.0 {tablet} activ e Atorvastatin Calcium 40 MG eCW1 (Formerly [facility]) atorvastatin 40 MG Oral Tablet Atorvastatin Calcium 40 MG Atorvastatin Calcium 40 MG 03/26/2019 12:00:00 AM EST 1.0 {tablet} activ e Atorvastatin Calcium 40 MG eCW1 (Formerly [facility]) atorvastatin 40 MG Oral Tablet Atorvastatin Calcium 40 MG Atorvastatin Calcium 40 MG 03/26/2019 12:00:00 AM EST 1.0 {tablet} activ e Atorvastatin Calcium 40 MG eCW1 (Formerly [facility]) atorvastatin 40 MG Oral Tablet Atorvastatin Calcium 40 MG Atorvastatin Calcium 40 MG 03/26/2019 12:00:00 AM EST 1.0 {tablet} activ e Atorvastatin Calcium 40 MG eCW1 (Formerly [facility]) atorvastatin 40 MG Oral Tablet Atorvastatin Calcium 40 MG Atorvastatin Calcium 40 MG 03/26/2019 12:00:00 AM EST 1.0 {tablet} activ e Atorvastatin Calcium 40 MG eCW1 (Formerly [facility]) atorvastatin 40 MG Oral Tablet Atorvastatin Calcium 40 MG Atorvastatin Calcium 40 MG 03/26/2019 12:00:00 AM EST 1.0 {tablet} activ e Atorvastatin Calcium 40 MG eCW1 (Formerly [facility]) atorvastatin 40 MG Oral Tablet Atorvastatin Calcium 40 MG Atorvastatin Calcium 40 MG 03/26/2019 12:00:00 AM EST 1.0 {tablet} activ e Atorvastatin Calcium 40 MG eCW1 (Formerly [facility]) Nystatin 657607 UNT/ML Topical Cream Nystatin 660468 U NIT/GM Nystatin 886201 UNIT/GM 03/26/2019 12:00:00 AM EST active 1 application 2g eCW1 (Formerly [facility]) atorvastatin 40 MG Oral Tablet Atorvastatin Calcium 40 MG Atorvastatin Calcium 40 MG 03/26/2019 12:00:00 AM EST 1.0 {tablet} activ e Atorvastatin Calcium 40 MG eCW1 (Formerly [facility]) atorvastatin 40 MG Oral Tablet Atorvastatin Calcium 40 MG Atorvastatin Calcium 40 MG 03/26/2019 12:00:00 AM EST 1.0 {tablet} activ e Atorvastatin Calcium 40 MG eCW1 (Formerly [facility]) atorvastatin 40 MG Oral Tablet Atorvastatin Calcium 40 MG Atorvastatin Calcium 40 MG 03/26/2019 12:00:00 AM EST active 1 tablet eCW1 (Formerly [facility]) atorvastatin 40 MG Oral Tablet Atorvastatin Calcium 40 MG Atorvastatin Calcium 40 MG 03/26/2019 12:00:00 AM EST 1.0 {tablet} activ e Atorvastatin Calcium 40 MG eCW1 (Formerly [facility]) atorvastatin 40 MG Oral Tablet Atorvastatin Calcium 40 MG Atorvastatin Calcium 40 MG 03/26/2019 12:00:00 AM EST 1.0 {tablet} activ e Atorvastatin Calcium 40 MG eCW1 (Formerly [facility]) atorvastatin 40 MG Oral Tablet Atorvastatin Calcium 40 MG Atorvastatin Calcium 40 MG 03/26/2019 12:00:00 AM EST 1.0 {tablet} activ e Atorvastatin Calcium 40 MG eCW1 (Formerly [facility]) atorvastatin 40 MG Oral Tablet Atorvastatin Calcium 40 MG Atorvastatin Calcium 40 MG 03/26/2019 12:00:00 AM EST 1.0 {tablet} activ e Atorvastatin Calcium 40 MG eCW1 (Formerly [facility]) atorvastatin 40 MG Oral Tablet Atorvastatin Calcium 40 MG Atorvastatin Calcium 40 MG 03/26/2019 12:00:00 AM EST 1.0 {tablet} activ e Atorvastatin Calcium 40 MG eCW1 (Formerly [facility]) atorvastatin 40 MG Oral Tablet Atorvastatin Calcium 40 MG Atorvastatin Calcium 40 MG 03/26/2019 12:00:00 AM EST active 1 tablet eCW1 (Formerly [facility]) atorvastatin 40 MG Oral Tablet Atorvastatin Calcium 40 MG Atorvastatin Calcium 40 MG 03/26/2019 12:00:00 AM EST 1.0 {tablet} activ e Atorvastatin Calcium 40 MG eCW1 (Formerly [facility]) atorvastatin 40 MG Oral Tablet Atorvastatin Calcium 40 MG Atorvastatin Calcium 40 MG 03/26/2019 12:00:00 AM EST 1.0 {tablet} activ e Atorvastatin Calcium 40 MG eCW1 (Formerly [facility]) atorvastatin 40 MG Oral Tablet Atorvastatin Calcium 40 MG Atorvastatin Calcium 40 MG 03/26/2019 12:00:00 AM EST 1.0 {tablet} activ e Atorvastatin Calcium 40 MG eCW1 (Formerly [facility]) atorvastatin 40 MG Oral Tablet Atorvastatin Calcium 40 MG Atorvastatin Calcium 40 MG 03/26/2019 12:00:00 AM EST 1.0 {tablet} activ e Atorvastatin Calcium 40 MG eCW1 (Formerly [facility]) atorvastatin 40 MG Oral Tablet Atorvastatin Calcium 40 MG Atorvastatin Calcium 40 MG 03/26/2019 12:00:00 AM EST 1.0 {tablet} activ e Atorvastatin Calcium 40 MG eCW1 (Formerly [facility]) atorvastatin 40 MG Oral Tablet Atorvastatin Calcium 40 MG Atorvastatin Calcium 40 MG 03/26/2019 12:00:00 AM EST 1.0 {tablet} activ e Atorvastatin Calcium 40 MG eCW1 (Formerly [facility]) atorvastatin 40 MG Oral Tablet Atorvastatin Calcium 40 MG Atorvastatin Calcium 40 MG 03/26/2019 12:00:00 AM EST 1.0 {tablet} activ e Atorvastatin Calcium 40 MG eCW1 (Formerly [facility]) Nystatin 277246 UNT/ML Topical Cream Nystatin 009737 U NIT/GM Nystatin 234877 UNIT/GM 03/26/2019 12:00:00 AM EST active 1 application 2g eCW1 (Formerly [facility]) atorvastatin 40 MG Oral Tablet Atorvastatin Calcium 40 MG Atorvastatin Calcium 40 MG 03/26/2019 12:00:00 AM EST 1.0 {tablet} activ e Atorvastatin Calcium 40 MG eCW1 (Formerly [facility]) atorvastatin 40 MG Oral Tablet Atorvastatin Calcium 40 MG Atorvastatin Calcium 40 MG 03/26/2019 12:00:00 AM EST 1.0 {tablet} activ e Atorvastatin Calcium 40 MG eCW1 (Formerly [facility]) atorvastatin 40 MG Oral Tablet Atorvastatin Calcium 40 MG Atorvastatin Calcium 40 MG 03/26/2019 12:00:00 AM EST 1.0 {tablet} activ e Atorvastatin Calcium 40 MG eCW1 (Formerly [facility]) atorvastatin 40 MG Oral Tablet Atorvastatin Calcium 40 MG Atorvastatin Calcium 40 MG 03/26/2019 12:00:00 AM EST 1.0 {tablet} activ e Atorvastatin Calcium 40 MG eCW1 (Formerly [facility]) atorvastatin 40 MG Oral Tablet Atorvastatin Calcium 40 MG Atorvastatin Calcium 40 MG 03/26/2019 12:00:00 AM EST 1.0 {tablet} activ e Atorvastatin Calcium 40 MG eCW1 (Formerly [facility]) atorvastatin 40 MG Oral Tablet Atorvastatin Calcium 40 MG Atorvastatin Calcium 40 MG 03/26/2019 12:00:00 AM EST 1.0 {tablet} activ e Atorvastatin Calcium 40 MG eCW1 (Formerly [facility]) atorvastatin 40 MG Oral Tablet Atorvastatin Calcium 40 MG Atorvastatin Calcium 40 MG 03/26/2019 12:00:00 AM EST 1.0 {tablet} activ e Atorvastatin Calcium 40 MG eCW1 (Formerly [facility]) atorvastatin 40 MG Oral Tablet Atorvastatin Calcium 40 MG Atorvastatin Calcium 40 MG 03/26/2019 12:00:00 AM EST 1.0 {tablet} activ e Atorvastatin Calcium 40 MG eCW1 (Formerly [facility]) atorvastatin 40 MG Oral Tablet Atorvastatin Calcium 40 MG Atorvastatin Calcium 40 MG 03/26/2019 12:00:00 AM EST 1.0 {tablet} activ e Atorvastatin Calcium 40 MG eCW1 (Formerly [facility]) atorvastatin 40 MG Oral Tablet Atorvastatin Calcium 40 MG Atorvastatin Calcium 40 MG 03/26/2019 12:00:00 AM EST 1.0 {tablet} activ e Atorvastatin Calcium 40 MG eCW1 (Formerly [facility]) Nystatin 969307 UNT/ML Topical Cream Nystatin 290073 U NIT/GM Nystatin 153145 UNIT/GM 03/26/2019 12:00:00 AM EST active 1 application 2g eCW1 (Formerly [facility]) atorvastatin 40 MG Oral Tablet Atorvastatin Calcium 40 MG Atorvastatin Calcium 40 MG 03/26/2019 12:00:00 AM EST 1.0 {tablet} activ e Atorvastatin Calcium 40 MG eCW1 (Formerly [facility]) atorvastatin 40 MG Oral Tablet Atorvastatin Calcium 40 MG Atorvastatin Calcium 40 MG 03/26/2019 12:00:00 AM EST 1.0 {tablet} activ e Atorvastatin Calcium 40 MG eCW1 (Formerly [facility]) atorvastatin 40 MG Oral Tablet Atorvastatin Calcium 40 MG Atorvastatin Calcium 40 MG 03/26/2019 12:00:00 AM EST 1.0 {tablet} activ e Atorvastatin Calcium 40 MG eCW1 (Formerly [facility]) atorvastatin 40 MG Oral Tablet Atorvastatin Calcium 40 MG Atorvastatin Calcium 40 MG 03/26/2019 12:00:00 AM EST active 1 tablet eCW1 (Formerly [facility]) atorvastatin 40 MG Oral Tablet Atorvastatin Calcium 40 MG Atorvastatin Calcium 40 MG 03/26/2019 12:00:00 AM EST 1.0 {tablet} activ e Atorvastatin Calcium 40 MG eCW1 (Formerly [facility]) atorvastatin 40 MG Oral Tablet Atorvastatin Calcium 40 MG Atorvastatin Calcium 40 MG 03/26/2019 12:00:00 AM EST 1.0 {tablet} activ e Atorvastatin Calcium 40 MG eCW1 (Formerly [facility]) atorvastatin 40 MG Oral Tablet Atorvastatin Calcium 40 MG Atorvastatin Calcium 40 MG 03/26/2019 12:00:00 AM EST 1.0 {tablet} activ e Atorvastatin Calcium 40 MG eCW1 (Formerly [facility]) atorvastatin 40 MG Oral Tablet Atorvastatin Calcium 40 MG Atorvastatin Calcium 40 MG 03/26/2019 12:00:00 AM EST 1.0 {tablet} activ e Atorvastatin Calcium 40 MG eCW1 (Formerly [facility]) atorvastatin 40 MG Oral Tablet Atorvastatin Calcium 40 MG Atorvastatin Calcium 40 MG 03/26/2019 12:00:00 AM EST 1.0 {tablet} activ e Atorvastatin Calcium 40 MG eCW1 (Formerly [facility]) atorvastatin 40 MG Oral Tablet Atorvastatin Calcium 40 MG Atorvastatin Calcium 40 MG 03/26/2019 12:00:00 AM EST 1.0 {tablet} activ e Atorvastatin Calcium 40 MG eCW1 (Formerly [facility]) atorvastatin 40 MG Oral Tablet Atorvastatin Calcium 40 MG Atorvastatin Calcium 40 MG 03/26/2019 12:00:00 AM EST 1.0 {tablet} activ e Atorvastatin Calcium 40 MG eCW1 (Formerly [facility]) atorvastatin 40 MG Oral Tablet Atorvastatin Calcium 40 MG Atorvastatin Calcium 40 MG 03/26/2019 12:00:00 AM EST 1.0 {tablet} activ e Atorvastatin Calcium 40 MG eCW1 (Formerly [facility]) Nystatin 732456 UNT/ML Topical Cream Nystatin 296924 U NIT/GM Nystatin 971188 UNIT/GM 03/26/2019 12:00:00 AM EST active 1 application eCW1 (Formerly [facility]) atorvastatin 40 MG Oral Tablet Atorvastatin Calcium 40 MG Atorvastatin Calcium 40 MG 03/26/2019 12:00:00 AM EST 1.0 {tablet} activ e Atorvastatin Calcium 40 MG eCW1 (Formerly [facility]) atorvastatin 40 MG Oral Tablet Atorvastatin Calcium 40 MG Atorvastatin Calcium 40 MG 03/26/2019 12:00:00 AM EST 1.0 {tablet} activ e Atorvastatin Calcium 40 MG eCW1 (Formerly [facility]) atorvastatin 40 MG Oral Tablet Atorvastatin Calcium 40 MG Atorvastatin Calcium 40 MG 03/26/2019 12:00:00 AM EST active 1 tablet eCW1 (Formerly [facility]) atorvastatin 40 MG Oral Tablet Atorvastatin Calcium 40 MG Atorvastatin Calcium 40 MG 03/26/2019 12:00:00 AM EST 1.0 {tablet} activ e Atorvastatin Calcium 40 MG eCW1 (Formerly [facility]) Acetaminophen 325 MG / Oxycodone Hydroch loride 10 MG Oral Tablet [Percocet] Percocet 10-325 MG Percocet 10-325 MG 03/25/2019 12:00:00 AM EST active 1 tablet as needed eCW1 ([facility]) Morphine Sulfate 15 MG Extended Release Oral Tablet Mo rphine Sulfate ER 15 MG Morphine Sulfate ER 15 MG 03/10/2019 12:00:00 AM EST active 1 to 2 as directed eCW1 (Formerly [facility]) Morphine Sulfate 15 MG Extended Release Oral Tablet Mo rphine Sulfate ER 15 MG Morphine Sulfate ER 15 MG 03/10/2019 12:00:00 AM EST active 1 to 2 as directed eCW1 (Formerly [facility]) Morphine Sulfate 15 MG Extended Release Oral Tablet Mo rphine Sulfate ER 15 MG Morphine Sulfate ER 15 MG 03/10/2019 12:00:00 AM EST active 1 to 2 as directed eCW1 (Formerly [facility]) 15 mg 03/10/2019 12:00:00 AM EST tablet extended release 90 TAKE 1 TABLET BY MOUTH IN THE MORNING AND 2 AT BEDTIME MAXIMUM DAILY DOSE = 3 TAKE 1 TABLET BY MOUTH IN THE MORNING AND 2 AT BEDTIME MAXIMUM DAILY DOSE = 3 SOLD: 03/13/2019 [facility] Morphine Sulfate 15 MG Extended Release Oral Tablet Mo rphine Sulfate ER 15 MG Morphine Sulfate ER 15 MG 03/10/2019 12:00:00 AM EST active 1 to 2 as directed eCW1 (Formerly [facility]) Morphine Sulfate 15 MG Extended Release Oral Tablet Mo rphine Sulfate ER 15 MG Morphine Sulfate ER 15 MG 03/10/2019 12:00:00 AM EST active 1 to 2 as directed eCW1 (Formerly [facility]) 5 mg 03/05/2019 12:00:00 AM EST tablet 60 TAKE ONE TABLET BY MOUTH EVERY 12 HOURS NEEDED FOR ANXIETY MAXIMUM DAILY DOSE = 2 TABLETS TAKE ONE TABLET BY MOUTH EVERY 12 HOURS NEEDED FOR ANXIETY MAXIMUM DAILY DOSE = 2 TABLETS SOLD: 03/05/2019 [facility] Diazepam 5 MG Oral Tablet diazePAM 5 MG Oral Tablet (V ALIUM) diazePAM 5 MG Oral Tablet (VALIUM) 03/05/2019 12:00:00 AM EST 5 mg Oral ac tive Take 1 tablet by mouth every 12 (twelve) hours as needed for Anxiety, Max Daily Dose: 10 mg [facility] 300 mg 02/24/2019 12:00:00 AM EST capsule [...] EST active 1 tablet as needed eCW1 ([facility]) Acetaminophen 325 MG / Oxycodone Hydroch loride 10 MG Oral Tablet [Percocet] Percocet 10-325 MG Percocet 10-325 MG 02/17/2019 12:00:00 AM EST active 1 tablet as needed eCW1 ([facility]) Acetaminophen 325 MG / Oxycodone Hydroch loride 10 MG Oral Tablet [Percocet] Percocet 10-325 MG Percocet 10-325 MG 02/17/2019 12:00:00 AM EST active 1 tablet as needed eCW1 ([facility]) Acetaminophen 325 MG / Oxycodone Hydroch loride 10 MG Oral Tablet [Percocet] Percocet 10-325 MG Percocet 10-325 MG 02/17/2019 12:00:00 AM EST active 1 tablet as needed eCW1 ([facility]) Acetaminophen 325 MG / Oxycodone Hydroch loride 10 MG Oral Tablet [Percocet] Percocet 10-325 MG Percocet 10-325 MG 02/17/2019 12:00:00 AM EST active 1 tablet as needed eCW1 ([facility]) Percocet 10-325 MG UNK 02/17/2019 12:00:00 AM EST active 1 tablet as needed eCW1 ([facility]ly [facility]) Acetaminophen 325 MG / Oxycodone Hydroch loride 10 MG Oral Tablet [Percocet] Percocet 10-325 MG Percocet 10-325 MG 02/17/2019 12:00:00 AM EST active 1 tablet as needed eCW1 ([facility]) Acetaminophen 325 MG / Oxycodone Hydroch loride 10 MG Oral Tablet [Percocet] Percocet 10-325 MG Percocet 10-325 MG 02/17/2019 12:00:00 AM EST active 1 tablet as needed eCW1 ([facility]) Amitriptyline Hydrochloride 25 MG Oral Tablet AMITRIPTYLINE [...] MAXIMUM DAILY DOSE = 3 SOLD: 02/14/2019 [facility] Morphine Sulfate 15 MG Extended Release Oral Tablet Mo rphine Sulfate ER 15 MG Morphine Sulfate ER 15 MG 02/12/2019 12:00:00 AM EST active 1 to 2 as directed eCW1 ([facility]ly [facility]) Morphine Sulfate ER 15 MG UNK 02/12/2019 12:00:00 AM EST active 1 to 2 as directed eCW1 (Formerly [facility]) Morphine Sulfate 15 MG Extended Release Oral Tablet Mo rphine Sulfate ER 15 MG Morphine Sulfate ER 15 MG 02/12/2019 12:00:00 AM EST active 1 to 2 as directed eCW1 (Formerly [facility]) 5 mg 02/03/2019 12:00:00 AM EST tablet 60 TAKE ONE TABLET BY MOUTH EVERY 12 HOURS NEEDED FOR ANXIETY MAXIMUM DAILY DOSE = 2 TAKE ONE TABLET BY MOUTH EVERY 12 HOURS NEEDED FOR ANXIETY MAXIMUM DAILY DOSE = 2 SOLD: 02/03/2019 [facility] 10-325 mg 01/24/2019 12:00:00 AM EST tablet 120 TAKE ONE TABLET BY MOUTH EVERY 6 HOURS NEEDED MAXIMUM DAILY DOSE = 4 TAKE ONE TABLET BY MOUTH EVERY 6 HOURS NEEDED MAXIMUM DAILY DOSE = 4 SOLD: 01/24/2019 [facility] Acetaminophen 325 MG / Oxycodone Hydroch loride 10 MG Oral Tablet [Percocet] Percocet 10-325 MG Percocet 10-325 MG 01/19/2019 12:00:00 AM EST active 1 tablet as needed eCW1 ([facility]) Morphine Sulfate 15 MG Extended Release Oral Tablet Mo rphine Sulfate ER 15 MG Morphine Sulfate ER 15 MG 01/15/2019 12:00:00 AM EST active 1 to 2 as directed eCW1 ([facility]ly [facility]) 15 mg 01/15/2019 12:00:00 AM EST tablet extended release 90 TAKE 1 TABLET BY MOUTH IN THE MORNING AND 2 AT BEDTIME MAXIMUM DAILY DOSE = 3 TAKE 1 TABLET BY MOUTH IN THE MORNING AND 2 AT BEDTIME MAXIMUM DAILY DOSE = 3 SOLD: 01/15/2019 [facility] Morphine Sulfate 15 MG Extended Release Oral Tablet Mo rphine Sulfate ER 15 MG Morphine Sulfate ER 15 MG 01/15/2019 12:00:00 AM EST active 1 to 2 as directed eCW1 ([facility]ly [facility]) 5 mg 01/07/2019 12:00:00 AM EST tablet [...] Release Particles (CYMBALTA) 12/30/2018 12:00:00 AM EST [facility] Carisoprodol 350 MG Oral Tablet CARISOPRODOL 12/05/2018 [...] DAILY DOSE = 2 CAPSULE SOLD: 01/24/2019 [facility] Amitriptyline Hydrochloride 25 MG Oral Tablet AMITRIPTYLINE [...] aborted Take 25 mg by mouth daily [facility] Propranolol Hydrochloride 20 MG Oral Tablet propranolo l (INDERAL) 20 MG tablet propranolol (INDERAL) 20 MG tablet 01/13/2018 12:00:00 AM EST aborted TAKE ONE TABLET BY MOUTH EVERY DAY ON EM PTY STOMACH [facility] Oxycodone Hydrochloride 5 MG Oral Tablet oxyCODONE (ROXICODONE) 5 MG immediate release tablet oxyCODONE (ROXICODONE) 5 MG immediate release tablet 0 06/25/2017 12:00:00 AM EDT aborted Take 1 PO q4h prn pain, MDD = 6 [facility] Insurance Providers Payer name Policy type / Coverage type Policy ID Covered constitution party ID Covered constitution party's relationship to daly Policy [place] Plan Information MEDICARE [id number] SP [id number] [employer] BC-BS PPO 306 [id number] SP [id number] MEDICARE C [id number] S [id number] [place]/307 [id number] SP [id number] [place]/307 [id number] SP [id number] [employer] BC-BS PPO 306 [id number] SP [id number] [employer] BCBS B [id number] S [id number] TRAVELERS WC W [id number] Empl [id number] [place] 220/720 [id number] SP [id number] BCBS [employer] [id number] SP [id number] [place] PPO 302/307 [id number] SP [id number] [place] 302/307 [id number] SP [id number] EXCELLUS H [id number] Self [id number] [employer] BC-BS PPO 306 [id number] SP [id number] 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 [id number] SP [id number] TRAVELERS-WC WCB# [id number] SP WCB # [id number] [place] 302/307 [id number] SP [id number] 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 [id number] SP [id number] [employer]CE[employer] BCBS B [id number] S [id number] 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 WCB# [id number] WCB# [id number] 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 [id number] SP [id number] TRAVELERS-[place] WCB# [id number] SP WCB # [id number] 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 [id number] SP [id number] 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 [id number] SP [id number] OTHER WORKERS COMPENSATI O WCB#[id number] S WCB#[id number] TRAVELERS WC W [id number] Empl [id number] ANSI-Commercial [id number] ANSI-Not a Secondary Insurance [id number] ANSI-Not a Secondary Insurance [id number] ANSI-Commercial [id number] ANSI-Not a Secondary Insurance [id number] ANSI-Commercial [id number] ANSI-Commercial [id number] ANSI-Not a Secondary Insurance [id number] 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 [facility]# [id number] SP B# [id number] ANSI-Commercial [id number] ANSI-Not a Secondary Insurance [id number] ANSI-Commercial [id number] ANSI-Not a Secondary Insurance [id number] ANSI-Not a Secondary Insurance [id number] ANSI-Commercial [id number] ANSI-Commercial [id number] ANSI-Not a Secondary Insurance [id number] ANSI-Commercial [id number] ANSI-Not a Secondary Insurance [id number] ANSI-Commercial [id number] ANSI-Not a Secondary Insurance [id number] ANSI-Not a Secondary Insurance [id number] ANSI-Commercial [id number] [facility] [place] [id number] SP [id number] ANSI-Not a Secondary Insurance [id number]-wso26 25z737i [id number]-rrn3-889y-kp53-[id number] ANSI-Commercial 341uqe12-dde8-1er6-5ubn-25i3p3068gjx 493yyh19-eqc2-8ud9-9uew-13a9c8552aqi ANSI-Not a Secondary Insurance [id number]-l45v0 r2fs1h7 f86q07b1-7a37-40w2-9jh1-e02z9q8ah5a4 ANSI-Commercial [id number]-7210-3jk6-2hw1-6ik0c0950p07 71234ezu-8126-9np9-2pg2-9hq5f5609d11 ANSI-Commercial 3p16i1o4-068s-6008-b1e7-p34f69e93x4t 4y04i0i7-095l-3017-q1n3-y61x69z43v7p ANSI-Not a Secondary Insurance oq0z5e2o-4252-0e7a-94m9-7watt [id number] by9q6v1o-6652-8c3u-46i2-2xupp67q0071 ANSI-Commercial q0r10y90-b3c1-058e-jp4n-24au100236q6 y2j27v01-j9s9-525e-ag2a-31fc929552f1 ANSI-Not a Secondary Insurance 72i8rxx3-dm83-3798-k532-05c0q 6pj87u5 44i3zoz1-pt17-0961-y665-69v1m7gx48o2 ANSI-Not a Secondary Insurance [id number]-w685-58t2-8xh0-wq3e8 p52l697 r9321433-x448-70s7-1dm6-qd0v6m98l113 ANSI-Commercial 8tf6q4f6-658a-3j22-b7vw-15a5f2988p50 3yh2y5o9-809m-0j90-j6tu-34a3o5522q65 ANSI-Not a Secondary Insurance 1ujxv47x-i0p9-046n-o1v4-vyi7h 953o6iu 4ybjj61u-v1a3-260v-o7u2-ywr8h732x8lo ANSI-Commercial 42dc6fag-72n3-3558-2076-c85hnr3xl467 38hd5uep-02i5-1350-1309-r17rqp8pd646 ANSI-Not a Secondary Insurance w57d04vk-r31u-3mkt-6l11-j1719 u3y4ln4 u72d10ss-i34y-8pss-1m47-o5132r4n4df8 ANSI-Commercial 7b08t7ua-0c71-0826-v546-4l6007t2nx72 3x08p1pf-1v26-4523-c100-6o3851i1pf58 ANSI-Commercial h62eq357-2b9d-231u-o5r2-7t702g386k99 n53yp649-4w0q-333l-y2i8-6f969b071o58 ANSI-Not a Secondary Insurance 0yinmp0g-c753-450i-e3n9-fm90k 2z8k6g4 9vxnpn1z-y480-222c-g5a0-nl90a2y9j6q8 ANSI-Not a Secondary Insurance bx3ap949-q8w3-8649-i8g7-47082 wl8g67t by0oe968-z0m0-9878-l9j8-74148ib2g28c ANSI-Commercial 2375a3k3-71sf-5529-1q8r-15gx646ys7s0 6758l9k1-65ob-2225-5z9o-19if357vo1w8 ANSI-Commercial 070f0e74-tp86-51l6-dy6t-9ex6xprg0pk1 200b5n12-ko85-72q6-au2g-3pr5nnri4wr9 ANSI-Not a Secondary Insurance 469811f1-y4r1-7mhe-n51j-ef4h8 5288g8p 457183k3-a4d7-7pao-j38s-mh3b76110b8r ANSI-Commercial 7b7t3cy1-431j-9n53-6843-831v485i42x6 0w1l2vw6-097r-8y58-4069-308n654c00b4 ANSI-Not a Secondary Insurance p043961i-4p70-0z08-68y7-2dip2 3k51686 h197246n-3t22-1g61-58s9-7ldo73v46087 ANSI-Not a Secondary Insurance ih3o7mrc-9n3y-62vc-c8f3-f03e2 qj332p2 wl9n3wcy-2p5i-63hn-s0f2-x93y0mh324u8 ANSI-Commercial hqqez694-a6k8-96e4-6rmn-s26k171d85c3 npezi658-m1t9-92l6-0hot-v86n702y12q3 ANSI-Commercial 937095x1-63z8-8gd4-8397-025p83ga0w3s 128210i5-29v7-0wn3-0535-457a53cx5a5c ANSI-Not a Secondary Insurance 809c9r2u-0r34-4484-290p-b875n ns2ard3 555v0n3b-2y17-6601-412y-s000ahp9jgv4 ANSI-Not a Secondary Insurance 865z974f-40gs-0cyp-4o2l-7a839 a4z81q5 596a694e-47pu-4lwp-2l7e-4f575e9f01v8 ANSI-Commercial v8so3665-07l4-73b7-41z2-0f34991bkk54 a2wd9926-37l2-39z0-19b3-2u82334zyg85 ANSI-Commercial q454348o-67fl-1826-8b60-49yt1x0b94cj k520499r-60ih-1979-5c49-73sp2x8s58wv ANSI-Not a Secondary Insurance 4z7c7219-q5a0-5bo8-e34o-1vi88 4ve4x74 5f0a3459-p7y5-6pe7-l73b-6zj268fm6g76 ANSI-Commercial 605d41q4-3phn-15g1-m21i-9yyw9940r642 644r58d1-1upp-15t9-c63c-6tso4402z570 ANSI-Not a Secondary Insurance d1o6539y-0bd2-000s-2iy7-65ypn 4a06lpa t9b5184w-6nk9-482i-1he7-84gkd4h66iof ANSI-Commercial 1fcd424h-g829-87j1-y140-00i281526210 6etg174i-i154-87u7-p795-06e224438502 ANSI-Not a Secondary Insurance 5b85rj21-x988-7503-6668-013o4 832s3g1 8i82ho54-y822-1619-3075-198r5853w2r6 ANSI-Commercial 55jh5rx6-0a22-7dl5-4679-3byc5r2715lq 63jb9ip7-4f64-7zj1-7777-0lrc7h4846yy ANSI-Not a Secondary Insurance 56ig7340-19r5-07bn-w913-m469d z1640w5 35oe7429-91c5-04yx-k997-c730vf9691q3 ANSI-Commercial k0q79347-7or9-3040-6w49-8jd07136n18u t5t35329-6fs3-0004-9f04-2ni45325e31r ANSI-Not a Secondary Insurance e151n771-sf43-2hyx-325i-4e315 kdw5n7s z050p085-oa41-8wtl-201u-8k105opj6t0q ANSI-Commercial 5dk2ms78-c4i9-75xw-q50p-32z7875uh1tw 1pr4ue92-x5b3-52yl-w49k-70s4506er9mu ANSI-Not a Secondary Insurance 3o84w8ca-3g94-9c17-65a6-z57l0 6chuk90 3u22g4zo-9o67-4y49-53j5-c19p92bjdn75 ANSI-Not a Secondary Insurance 0wzzg6d7-0u50-2ty5-mi3k-515m1 806d6z8 5sxvk0m0-0z05-2rr5-nv1e-919k0139n0h0 ANSI-Commercial f507n1pw-04t3-696p-3610-k1oj3c9dz5c3 e688m6cj-47q6-417d-8403-v8qi1b2nv8v5 ANSI-Commercial q9h4q045-9945-45t3-97nk-0l43f4ao266b f1m6w334-0695-53e3-88sa-5b21g6tx395k ANSI-Not a Secondary Insurance 1847b336-1031-3p15-9sld-k7w54 s1779yw 1326f052-2037-6y79-1ovy-n8n87s9051kq ANSI-Commercial 58066715-o043-1823-ic82-zbr6y0340060 91069575-w339-1980-lh05-axz1j3867350 ANSI-Not a Secondary Insurance 47w892dd-l177-01oe-f9lv-4lc13 1feaaac 29o727gc-s488-73tr-j8ii-3sa394ueabej ANSI-Not a Secondary Insurance 02r09t89-b9fp-2907-3ak5-5147c 47108d9 17g54f45-l6tb-6230-9ce0-1479y33406u8 ANSI-Commercial 08k0u7o2-786z-3o40-24vl-595odd2te354 35k8l0i0-614t-3a15-37on-499jgd5hy421 ANSI-Not a Secondary Insurance 03lw4rfu-pt38-7358-mj1h-0w5l5 8l1t83u 07xp4hsf-ta44-7518-wt3q-7q2s68l7m71f ANSI-Commercial 7e8g1fm0-44e9-30ge-hn52-434392vq0j2k 2x9v5zm9-40x0-80et-jm43-161795ts3r6a ANSI-Commercial sex11929-pa12-1t58-4112-6b22tynkkk92 jkn56619-hn24-7z15-2685-9y97kurmaf44 ANSI-Not a Secondary Insurance p44y8gr5-0m4l-71a1-w4os-rgg06 364156f g34r9hb3-4t3y-81r1-m4yl-myf95533727y ANSI-Not a Secondary Insurance ik0568rr-27v7-7l10-2vwg-15323 7137560 te0828jy-07o9-6s25-0yke-989262208539 ANSI-Commercial h3l2n919-4d31-0966-v157-5s39b3l518fh b8n3d985-9w90-7068-m637-4f96q0l788nf ANSI-Not a Secondary Insurance 7e8vq5j6-4676-7644-750j-658bi y03008j 7d9mm0y7-7052-1291-893c-532icq34518y ANSI-Commercial 205j204g-8822-5849-014r-92u755mdx8o8 184i983r-1348-3730-181j-28f158gpb7i6 ANSI-Not a Secondary Insurance 55101921-n55w-9nh5-bd4d-0l77u 8d57gu0 12269851-t85s-9hc7-gc7p-6h61d9x40ak3 ANSI-Commercial p105w673-g0l2-5lu8-28a5-6fv06o022dn2 t413d162-j8t1-8lk0-03z9-0qo92d232qn3 ANSI-Not a Secondary Insurance p64d7e3f-49j5-965l-r1r7-83319 u38ep0j e65g9s3a-49r7-305n-o0y9-33318d23tz2s ANSI-Commercial 2u9zb7w8-b9g0-2389-ob44-gd952194x1ap 0j4ut9m2-j7c1-5626-lu74-tz438511n2oo ANSI-Commercial 7bng655g-t1g4-68nc-jx01-h7zvmhai5411 9tud437e-d1f2-26nb-dr17-j2cpsich8607 ANSI-Not a Secondary Insurance 01395790-k372-4942-bnn2-8x01r nt399b7 61524561-i550-7002-avi9-3r74gfd434d4 ANSI-Not a Secondary Insurance 9547aaj3-smez-37f7-3275-b4tr5 4e809m9 7707wub1-tmnl-76s2-7577-n1xw26q186n6 ANSI-Commercial w2vk03l0-289n-75d7-m4j7-973789810332 s3er88i7-604j-66a6-v5t6-552190522697 ANSI-Not a Secondary Insurance 8677lkr0-2mfd-28k9-7x3f-6y4g9 81k6582 3109ihg3-4atd-41q9-7t5q-0r8y749b6333 ANSI-Commercial rz6jskm9-1brp-23lt-atlb-047a3ti0ik52 sd6fkcy7-5swg-61ev-rboz-411s5bw1mk58 ANSI-Commercial v10r4299-35v2-368z-69vp-54v4hr4v1438 j94g6644-26t6-057j-66bx-53f6pk3l4325 ANSI-Not a Secondary Insurance k28j1i2c-tgzi-26sa-9a3p-x2rx1 4a8o484 q97a6m6i-jkws-36mh-8w1d-h5wf21l9x719 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 O [id number] O [id number] ANSI-Not a Secondary Insurance 16zb5890-24k1-2j3p-v0j6-7erk0 t646573 74rm1059-42r3-8k9r-x6n7-5ovb7m940538 ANSI-Commercial tsn6g977-idih-3d49-841g-214296833wb9 lks7f257-vjdz-8r25-459w-249123343qk3 ANSI-Not a Secondary Insurance 54s3tt2v-2a97-959b-8hc2-0kn9h 5ycn991 53p4nh9g-5i73-561q-0qh2-8uo5r6gov406 ANSI-Commercial 534qr9e8-c822-7530-495k-59214i0dtl13 362yn7t0-r023-9859-292d-24096j0ypr74 ANSI-Commercial w053v198-a1ft-13u1-b39h-m2d20694uwz9 i791h997-p0gm-78b6-m12y-z6k11719usz0 ANSI-Not a Secondary Insurance wg0b7pv5-z715-3161-4kb3-72n58 58c7pun sm5r6ke6-e129-9533-9mf4-53c9461s6pse ANSI-Commercial q584k82l-0050-9n00-b5i2-3cc9bh3785p9 n351i60n-6705-1n00-r8x2-4zv4ki9132b4 ANSI-Not a Secondary Insurance 20s5go0t-c1r9-886t-6c8i-17cq2 8866653 98u8qm0i-q0l8-760i-1z5b-96or17703755 ANSI-Commercial 477io713-7282-9784-wa1b-g48174e8le95 046jl426-5564-1964-ga4w-z17471w2uq10 ANSI-Not a Secondary Insurance 58347sfi-6ved-314n-72l9-5d01j uad2yr2 30161nam-7szc-288w-50j6-5h98kqav0gq8 ANSI-Commercial 6b61q60m-o87b-9gg9-000x-1c286z8d0331 2e49r72n-e47i-1co1-319y-4l400q7m4238 ANSI-Not a Secondary Insurance 456q6683-3a88-89lc-a7xx-46f16 489ebec 937h0480-2f03-23cr-w1gn-69e69531wraq ANSI-Not a Secondary Insurance 66060263-h1v0-3ec4-hc8u-3k297 m4j171a 26615039-p7h0-6cc3-cg7x-5y106k7x260c ANSI-Commercial 2rrk53nv-2pm2-884r-zz61-214394m3q6uf 6urf49aa-6wk8-078y-uw68-493714l2c5ci ANSI-Not a Secondary Insurance 5x50r204-zu51-308v-5w80-47yxk 7m03i9z 8x97f695-ld23-362o-3r44-71odk8n62r1s ANSI-Commercial fki5159t-p129-04ko-0at4-n25zdclq8k3f mys6178h-z953-92yj-7st4-g16tfvuh8o8n ANSI-Commercial 72xx6241-3i7z-0btz-bu0u-u5b1s8l0n3tn 05ij3087-2r1q-6pxd-ly6k-g5a6w0w8n8nh ANSI-Not a Secondary Insurance 8c1zn799-2a8l-854j-3m47-9q1q3 4i56746 5y0wb435-2p8w-865j-6l11-9k3u31e72819 ANSI-Commercial 13an5q96-4674-6fq2-4m8d-4617o61ey254 29bs3j83-7677-5md8-4f9u-1648b57zu161 ANSI-Not a Secondary Insurance v0re65i8-ayn6-3e8g-c243-iy6ja 6wqg7fl o5qp48k3-fmw8-1e4s-p821-bi0qk3ola5ko ANSI-Commercial 8o1q75oz-2gxg-074q-dv3d-45j5805i2s1w 9s0w76fd-7lxq-375c-az4p-29f1864x9s6c ANSI-Not a Secondary Insurance 3494501y-915b-2807-1t85-ox5d3 270xi55 3050612u-980w-3440-0g45-ny4r5269jb96 ANSI-Commercial ocu77f46-3a0l-22k4-h536-nhbcomq55q54 ijg17b88-5u0z-36h9-a330-uwlsept13g50 ANSI-Not a Secondary Insurance 6d500ltp-1p78-5wco-q676-1t028 375o940 3h979jde-1y51-2qwq-s233-4w071521p815 ANSI-Not a Secondary Insurance 6u7rnwio-4thj-1d1n-p7v7-c00qr [id number] 0r4xmvih-1fgk-6a9q-r0g8-l99pk7935676 ANSI-Commercial 396u0f9v-883v-6q36-f71z-0989188u08a0 453r0n3k-881n-4a83-i34i-8226409v07w2 ANSI-Not a Secondary Insurance 4b7g6n9z-n219-47cj-92x8-4055w 00koa01 4i5w9b6j-k396-19ut-29s0-0553i44izx39 ANSI-Commercial 1933488f-d39c-1113-2adm-2368i7gu6f8h 5601804k-u95c-0373-3uno-7790v7bb3b0i ANSI-Commercial qj8x426o-0jd3-6tu5-8h55-u8k92rh982w2 sq3r791l-7ts3-0kd0-0e95-m5r60eg958d2 ANSI-Not a Secondary Insurance 67o25ge9-1q6z-5go0-3i74-l5x1t kzdt347 63y56wr8-7u0f-8fs3-2v85-n3k1szcii958 ANSI-Not a Secondary Insurance 2108rp38-15v4-843a-5218-5k38z z14692a 5387cz33-73w9-677f-7022-1u82cz48399q ANSI-Commercial 80i8x8k8-1139-3o11-in58-df98n9383602 45p7r9y7-2384-0v37-vv25-ea89b0382293 ANSI-Not a Secondary Insurance 388rx36p-24hd-3b7f-5o52-5b41z 7i7b8t1 025ra49i-58ov-8t8p-8g81-1d75n1x4z1e0 ANSI-Commercial 4h13347x-8501-5867-q000-z9o9dqcq0ba1 1z65342e-9611-4608-t997-i4g0fqfa1nl4 [facility] B [id number] S MMF [id number] ANSI-Commercial 71opu90z-9202-7666-7937-9rl3mx2m1470 50non80x-6345-6787-0682-7es6zw2q0392 ANSI-Not a Secondary Insurance c0700ykf-3z59-9197-1xj6-b391a 8wmg18d w6315qqf-8f60-2368-2fk1-w405g0hlg88d ANSI-Not a Secondary Insurance 91m42880-56v9-9089-21l7-27656 f1cglz7 67u77663-52z9-1326-10s1-30467l0bift9 ANSI-Commercial ur54h0al-403r-93p3-68n3-w15rvgsbx89s as44l7na-773y-77c6-80n4-u65vzdijd21u ANSI-Not a Secondary Insurance yqr0941e-2e55-6671-r7p5-z0958 4m81kxs lki2531g-4g01-6436-l0y2-f67896p32zgb ANSI-Commercial 146j854v-4a6x-107s-ti7c-09y91tt84xp9 422a604t-4s9q-074r-hk8q-17s78nd66ek7 ANSI-Not a Secondary Insurance k489turx-di5j-052i-8x09-80o8i 2bq23i9 i514rjhf-mh5j-425e-5z75-55m7d8je93m1 ANSI-Commercial g16kb5t0-moht-941r-sjb5-n546279239r1 i19rm8d4-fmec-941i-mrz5-t027622047k8 ANSI-Not a Secondary Insurance q737yqb3-03kz-63h4-tz0q-34881 7mjan2b b270mer4-62jr-43l3-bg9v-246201ipcx9c ANSI-Commercial ui2bh51r-4vv8-0514-t611-8nxu9338745f pp4ot23t-7vs8-1055-v009-1yzj1018685f ANSI-Commercial 446736i4-3s27-49ux-6g85-cz23f150y7r9 221297d0-8z50-40lo-7l64-as38f751g0l9 ANSI-Not a Secondary Insurance 960t45jh-6c95-420x-4s9v-56960 4005k5p 891s83hi-7s17-400s-3x2r-083284617r6y ANSI-Not a Secondary Insurance cj106552-x994-46aa-v170-606jp 39v918y df896144-e845-86jh-u491-168lr96c015l ANSI-Commercial kqk98o93-6038-58l2-jp53-ayt57i465060 xct91z40-3109-82g6-ee29-wde69p038618 ANSI-Not a Secondary Insurance w72r34vi-f12n-661c-485x-7o683 d9a8665 l92l10hp-p33h-426w-836n-7a096b7t3381 ANSI-Commercial izu19zd8-yw20-5388-25pc-864z60t100f7 bxg89cy9-rt40-1509-93ij-422s26x516w3 ANSI-Commercial qe7r0pjb-j1xk-8710-64w1-qh2u7v683f4n ub2b8jmc-j3tx-7661-67j7-va0u4k252h7b ANSI-Not a Secondary Insurance 974v0516-486q-8406-n7c9-300tj 5y1w3x4 016j3795-680i-1508-e3o9-583jg9a9a4q1 TRAVELERS- [id number] SP [id number] ANSI-Not a Secondary Insurance i7g756j8-km2c-2g42-2292-15v9x 99u996e f8r514x4-dq4f-9l98-0814-26r1h85d047n ANSI-Commercial 1088697f-065n-87aw-ykj6-aed82j9b7o64 4345844i-293j-75by-tmr2-xhy42p5s0b36 ANSI-Commercial lwi4f918-25e7-5ptr-l1yi-i0h03v7319ut ycp7h605-23g7-3gpc-b9qd-o3k96v5355ew ANSI-Not a Secondary Insurance a9x56592-4p97-886x-26t0-6846s a072gu1 q9m15428-8p20-862j-23h2-5806gz624zp3 ANSI-Not a Secondary Insurance 52e67195-4736-133z-7822-6x63t 46j907o 91w17166-1144-192l-7716-5s33w54d101r ANSI-Commercial 1snhh534-c181-2406-2057-9864300bi357 9ovzf262-t018-3131-1145-7794602vh304 OTHER WORKERS COMPENSATI O WCB#[id number] S WCB#[id number] ANSI-Not a Secondary Insurance t813e346-o0v4-7d24-op35-82123 0756ebf r261g949-x6e4-5r68-sp65-278056000yea ANSI-Commercial 97405o58-t7m4-2g97-654e-830431n4487f 61897u49-m2b4-4z06-384e-332502r1607u ANSI-Commercial 93681715-f3iq-44f7-07nk-hf5d2jwu2278 46357306-y7qu-70n6-41uq-fk2a0pvt3172 ANSI-Not a Secondary Insurance 42q4qu76-6x1b-4689-5062-1596r 51rz7g0 91j1oh30-5m4b-1518-2742-3885w57jp4y9 OTHER WORKERS COMPENSATI O WCB#[id number] S WCB#[id number] TRAV[employer] WCB# [id number] SP WCB # [id number] 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 [id number] BS [place] Medigap Part B [id number] Self [id number] Travelers Insurance (WC) Workers Compensation [id number] Self [id number] 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 [id number] SP [id number] 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 [id number] SP [id number] [place] P[place] 302/307 [id number] SP [id number] [place] 302/307 [id number] SP [id number] [place] 302/307 [id number] SP [id number] BS Of [place] [facility] ([facility]) Self [place]LLUS BCBS B [id number] S VYS [id number] BCBS [place] 304/804 [id number] SP [id number] EXCELLUS H [id number] Self [id number] BLUE CROSS BLUE SHIELD-CLINIC [id number] BCBS [place] 304/804 [id number] SP [id number] SELF PAY 5 UNAVAILABLE 1 UNAVAILA BLE BLUE CROSS BLUE SHIELD-O/P [id number] 18 [id number] BCBS [place] 306/8 P [id number] S [id number] Problems, Conditions, and Diagnoses Code Display Name Description Problem Type Effective Dates Data Source(s) F51.01 1317646 Primary insomnia Problem 01/28/2020 12:00:00 AM EST eCW1 ([facility]ly [facility]) F41.0 521131498 Panic disorder Problem 12/24/2019 12:00:00 A M EST eCW1 ([facility]ly [facility]) F41.9 92783384 Anxiety Problem 12/23/2019 12:00:00 AM ES T eCW1 ([facility]) [id number] Cervical radiculopathy Cervical radiculopathy Problem 08/26/2019 12:00:00 AM EDT MEDENT ([facility], ) 213316934 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 Problem 08/26/2019 12:00:00 AM EDT [facility] ([facility], ) 32232301 Neck pain Neck pain Problem 08/26/2019 12:00:00 AM ED T [facility]ENT ([facility], ) 317484071 Essential tremor Essential tremor Problem 08/26/2019 12 :00:00 AM EDT [facility] ([facility], ) R25.1 [id number] Tremor of both hands Problem 08/25/2019 12:0 0:00 AM EDT eCW1 ([facility]) F41.9 14810218 Anxiety Problem 08/04/2019 12:00:00 AM ED T eCW1 ([facility]) M46.1 [id number] Bilateral sacroiliitis Problem 05/28/2019 12:00:00 AM EDT eCW1 ([facility]ly [facility]) M54.5 814347667 Low back pain Problem 05/28/2019 12:00:00 AM EDT eCW1 ([facility]) M54.5 629439247 Low back pain Problem 05/28/2019 12:00:00 AM EDT eCW1 ([facility]) M46.1 [id number] Bilateral sacroiliitis Problem 05/28/2019 12:00:00 AM EDT eCW1 ([facility]) M46.1 31070885 Sacroiliitis Problem 04/21/2019 12:00:00 AM EDT eCW1 ([facility]) E78.00 450630309 Pure hypercholesterolemia Problem 03/26/2019 12:00:00 AM EST eCW1 ([facility]) J44.9 48010113 Chronic obstructive pulmonary di sease, unspecified COPD type Problem 03/26/2019 12:00:00 AM EST eCW1 ([facility]) E78.00 445815215 Pure hypercholesterolemia Problem 03/26/2019 12:00:00 AM EST eCW1 ([facility]) J44.9 53194547 Chronic obstructive pulmonary di sease, unspecified COPD type Problem 03/26/2019 12:00:00 AM EST eCW1 ([facility]) M75.41 Impingement syndrome of right shoulder I mpingement syndrome of right shoulder Diagnosis 04/01/2019 10:41:11 AM EST [facility] 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, 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, right upper limb Diagnosis 04/01/2019 10:41:11 AM [facility] Surgeries/Procedures Procedure Description Date Indications Data Source(s) Immunization: Flublok Quadrivalent (18 years & older) 0.5mL IM (Influenza) 01/15/2020 12:00:00 AM EST eCW1 ([facility]) INJ TRIGGER POINT / MUSCL 06/24/2019 12:00:00 AM EDT eCW1 ([facility]ly [facility]) PHYSICIAN TELEPHONE EVALUATION 11-20 MIN 06/12/2019 12 :00:00 AM EDT eCW1 (Formerly [facility]) ESTABILISHED PATIENT [facility] FACILITY CHARGE 020 12:00:00 AM EDT eCW1 (Formerly [facility]) SURGERY CASE REQUEST OUTSIDE FACILITY ONLY SURGERY CA SE REQUEST OUTSIDE FACILITY ONLY Routine 04/01/2019 11:37 AM EST Cubital tunnel syndrome on right 04/01/2019 04:37:19 PM EST Cubital tunnel syndrome on right [facility] Cubital tunnel syndrome on right Lumbar/Sacral w/ Imaging 03/25/2019 12:00:00 AM EST eCW1 (Formerly [facility]) RADXPS IN END [id number] [id number] 03/25/2019 12:00:00 AM ES T eCW1 (Formerly [facility]) Results ID Date Data Source Comprehensive Metabolic Profile (CMP) 12/18/2019 08:27:18 AM EST eCW1 (Formerly [facility]) Name Value Range Interpretation Code Description Data Abbey rce(s) Supporting Document(s) 92 GLUCOSE, FASTING eCW1 ([facility]) 15 BLOOD UREA NITROGEN eCW1 ([facility]) 1.01 CREATININE FOR GFR eCW1 ([facility]) 102 CHLORIDE LEVEL eCW1 ([facility]ly [facility]) 135 SODIUM LEVEL eCW1 ([facility]) 5.2 POTASSIUM SERUM eCW1 ([facility]) > 60.0 GLOMERULAR FILTRATION RATE eCW 1 ([facility]ly [facility]) 28 CARBON DIOXIDE LEVEL eCW1 ([facility]) 14 ALT/SGPT eCW1 ([facility]) 9 AST/SGOT eCW1 ([facility]) 9.5 CALCIUM LEVEL eCW1 ([facility]ly [facility]) 7.5 TOTAL PROTEIN eCW1 ([facility]ly [facility]) 0.3 BILIRUBIN,TOTAL eCW1 ([facility]) 101 ALKALINE PHOSPHATASE eCW1 ([facility]) 4.3 ALBUMIN eCW1 ([facility]) 1.3 ALBUMIN/GLOBULIN RATIO eCW1 ([facility]) ID Date Data Source [id number] 12/06/2019 10:45:00 AM EDT [facility] Name Value Range Interpretation Code Description Data Abbey rce(s) Supporting Document(s) SARS coronavirus 2 RNA [facility] This lab was ordered by [facility] and reported by [facility]. ID Date Data Source [facility] FLUORO GUIDE SPINE INJECTION (PAIN) 11/12/2019 05:47:51 AM EDT eCW1 (Formerly [facility]) Name Value Range Interpretation Code Description Data Abbey rce(s) Supporting Document(s) [facility] FLUORO GUIDE SPINE IN JECTION (PAIN) eCW1 ([facility]ly [facility]) ID Date Data Source [id number] 11/07/2019 10:00:00 AM EDT [facility] Name Value Range Interpretation Code Description Data Abbey rce(s) Supporting Document(s) SARS coronavirus 2 RNA [facility] This lab was ordered by [facility] and reported by [facility]. ID Date Data Source [id number] 07/11/2019 11:25:00 AM EDT [facility] Name Value Range Interpretation Code Description Data Abbey rce(s) Supporting Document(s) SARS CORONAVIRUS 2 RNA [facility] This lab was ordered by [facility] and reported by [facility]. ID Date Data Source [id number] 04/04/2019 03:33:54 PM [facility] Name Value Range Interpretation Code Description Data Abbey rce(s) Supporting Document(s) Progress Note [facility] [id number] [file] [id number] Procedure Social History Code Duration Value Status Description Data Source(s ) Smoking 02/16/2020 12:00:00 AM EST Current Smoker completed Curre nt Smoker eCW1 ([facility]ly [facility]) Smoking 02/16/2020 12:00:00 AM EST Current Smoker completed Curre nt Smoker eCW1 ([facility]ly [facility]) Smoking 02/16/2020 12:00:00 AM EST Current Smoker completed Curre nt Smoker eCW1 ([facility]ly [facility]) Smoking 01/28/2020 12:00:00 AM EST Current Smoker completed Curre nt Smoker eCW1 ([facility]ly [facility]) Smoking 01/28/2020 12:00:00 AM EST Current Smoker completed Curre nt Smoker eCW1 ([facility]ly [facility]) Smoking 01/28/2020 12:00:00 AM EST Current Smoker completed Curre nt Smoker eCW1 ([facility]ly [facility]) Smoking 01/28/2020 12:00:00 AM EST Current Smoker completed Curre nt Smoker eCW1 ([facility]ly [facility]) Smoking 01/28/2020 12:00:00 AM EST Current Smoker completed Curre nt Smoker eCW1 ([facility]ly [facility]) Smoking 01/28/2020 12:00:00 AM EST Current Smoker completed Curre nt Smoker eCW1 ([facility]ly [facility]) Smoking 01/15/2020 12:00:00 AM EST Current Smoker completed Curre nt Smoker eCW1 ([facility]ly [facility]) Smoking 01/15/2020 12:00:00 AM EST Current Smoker completed Curre nt Smoker eCW1 ([facility]ly [facility]) Smoking 01/15/2020 12:00:00 AM EST Current Smoker completed Curre nt Smoker eCW1 ([facility]ly [facility]) Smoking 01/15/2020 12:00:00 AM EST Current Smoker completed Curre nt Smoker eCW1 ([facility]ly [facility]) Smoking 01/15/2020 12:00:00 AM EST Current Smoker completed Curre nt Smoker eCW1 ([facility]ly [facility]) Smoking 01/15/2020 12:00:00 AM EST Current Smoker completed Curre nt Smoker eCW1 ([facility]ly [facility]) Smoking 01/15/2020 12:00:00 AM EST Current Smoker completed Curre nt Smoker eCW1 ([facility]ly [facility]) Smoking 01/15/2020 12:00:00 AM EST Current Smoker completed Curre nt Smoker eCW1 ([facility]ly [facility]) Smoking 01/15/2020 12:00:00 AM EST Current Smoker completed Curre nt Smoker eCW1 ([facility]ly [facility]) Smoking 01/15/2020 12:00:00 AM EST Current Smoker completed Curre nt Smoker eCW1 ([facility]ly [facility]) Smoking 01/15/2020 12:00:00 AM EST Current Smoker completed Curre nt Smoker eCW1 ([facility]ly [facility]) Smoking 01/15/2020 12:00:00 AM EST Current Smoker completed Curre nt Smoker eCW1 ([facility]ly [facility]) Smoking 01/15/2020 12:00:00 AM EST Current Smoker completed Curre nt Smoker eCW1 ([facility]ly [facility]) Smoking 01/15/2020 12:00:00 AM EST Current Smoker completed Curre nt Smoker eCW1 ([facility]ly [facility]) Smoking 12/24/2019 12:00:00 AM EST Current Smoker completed Curre nt Smoker eCW1 ([facility]ly [facility]) Smoking 12/24/2019 12:00:00 AM EST Current Smoker completed Curre nt Smoker eCW1 ([facility]ly [facility]) Smoking 12/24/2019 12:00:00 AM EST Current Smoker completed Curre nt Smoker eCW1 ([facility]ly [facility]) Smoking 12/24/2019 12:00:00 AM EST Current Smoker completed Curre nt Smoker eCW1 ([facility]ly [facility]) Smoking 12/24/2019 12:00:00 AM EST Current Smoker completed Curre nt Smoker eCW1 ([facility]ly [facility]) Smoking 12/24/2019 12:00:00 AM EST Current Smoker completed Curre nt Smoker eCW1 ([facility]ly [facility]) Smoking 12/24/2019 12:00:00 AM EST Current Smoker completed Curre nt Smoker eCW1 ([facility]ly [facility]) Smoking 12/24/2019 12:00:00 AM EST Current Smoker completed Curre nt Smoker eCW1 ([facility]ly [facility]) Smoking 12/24/2019 12:00:00 AM EST Current Smoker completed Curre nt Smoker eCW1 ([facility]ly [facility]) Smoking 12/24/2019 12:00:00 AM EST Current Smoker completed Curre nt Smoker eCW1 ([facility]ly [facility]) Smoking 12/24/2019 12:00:00 AM EST Current Smoker completed Curre nt Smoker eCW1 ([facility]ly [facility]) Smoking 12/24/2019 12:00:00 AM EST Current Smoker completed Curre nt Smoker eCW1 ([facility]ly [facility]) Smoking 12/24/2019 12:00:00 AM EST Current Smoker completed Curre nt Smoker eCW1 ([facility]ly [facility]) Smoking 12/24/2019 12:00:00 AM EST Current Smoker completed Curre nt Smoker eCW1 ([facility]ly [facility]) Smoking 12/24/2019 12:00:00 AM EST Current Smoker completed Curre nt Smoker eCW1 ([facility]ly [facility]) Smoking 12/24/2019 12:00:00 AM EST Current Smoker completed Curre nt Smoker eCW1 (Formerly [facility]) Smoking 12/24/2019 12:00:00 AM EST Current Smoker completed Curre nt Smoker eCW1 (Formerly [facility]) Smoking 12/24/2019 12:00:00 AM EST Current Smoker completed Curre nt Smoker eCW1 (Formerly [facility]) Smoking 12/24/2019 12:00:00 AM EST Current Smoker completed Curre nt Smoker eCW1 (Formerly [facility]) Smoking 12/24/2019 12:00:00 AM EST Current Smoker completed Curre nt Smoker eCW1 (Formerly [facility]) Smoking 12/24/2019 12:00:00 AM EST Current Smoker completed Curre nt Smoker eCW1 (Formerly [facility]) Smoking 12/24/2019 12:00:00 AM EST Current Smoker completed Curre nt Smoker eCW1 (Formerly [facility]) Smoking 12/24/2019 12:00:00 AM EST Current Smoker completed Curre nt Smoker eCW1 (Formerly [facility]) Smoking 12/24/2019 12:00:00 AM EST Current Smoker completed Curre nt Smoker eCW1 (Formerly [facility]) Smoking 12/24/2019 12:00:00 AM EST Current Smoker completed Curre nt Smoker eCW1 (Formerly [facility]) Smoking 12/22/2019 12:00:00 AM EST Current Smoker completed Curre nt Smoker eCW1 (Formerly [facility]) Smoking 12/22/2019 12:00:00 AM EST Current Smoker completed Curre nt Smoker eCW1 (Formerly [facility]) Smoking 12/22/2019 12:00:00 AM EST Current Smoker completed Curre nt Smoker eCW1 (Formerly [facility]) Smoking 12/18/2019 12:00:00 AM EST Current Smoker completed Curre nt Smoker eCW1 (Formerly [facility]) Smoking 12/18/2019 12:00:00 AM EST Current Smoker completed Curre nt Smoker eCW1 (Formerly [facility]) Smoking 12/18/2019 12:00:00 AM EST Current Smoker completed Curre nt Smoker eCW1 (Formerly [facility]) Smoking 12/18/2019 12:00:00 AM EST Current Smoker completed Curre nt Smoker eCW1 (Formerly [facility]) Smoking 12/18/2019 12:00:00 AM EST Current Smoker completed Curre nt Smoker eCW1 (Formerly [facility]) Smoking 12/18/2019 12:00:00 AM EST Current Smoker completed Curre nt Smoker eCW1 (Formerly [facility]) Smoking 12/11/2019 12:00:00 AM EDT Current Smoker completed Curre nt Smoker eCW1 (Formerly [facility]) Smoking 12/11/2019 12:00:00 AM EDT Current Smoker completed Curre nt Smoker eCW1 (Formerly [facility]) Smoking 12/11/2019 12:00:00 AM EDT Current Smoker completed Curre nt Smoker eCW1 (Formerly [facility]) Smoking 12/11/2019 12:00:00 AM EDT Current Smoker completed Curre nt Smoker eCW1 (Formerly [facility]) Smoking 12/09/2019 12:00:00 AM EDT Current Smoker completed Curre nt Smoker eCW1 (Formerly [facility]) Smoking 11/30/2019 12:00:00 AM EDT Current Smoker completed Curre nt Smoker eCW1 (Formerly [facility]) Smoking 11/30/2019 12:00:00 AM EDT Current Smoker completed Curre nt Smoker eCW1 (Formerly [facility]) Smoking 11/30/2019 12:00:00 AM EDT Current Smoker completed Curre nt Smoker eCW1 (Formerly [facility]) Smoking 11/30/2019 12:00:00 AM EDT Current Smoker completed Curre nt Smoker eCW1 (Formerly [facility]) Smoking 11/30/2019 12:00:00 AM EDT Current Smoker completed Curre nt Smoker eCW1 (Formerly [facility]) Smoking 11/30/2019 12:00:00 AM EDT Current Smoker completed Curre nt Smoker eCW1 (Formerly [facility]) Smoking 11/24/2019 12:00:00 AM EDT Current Smoker completed Curre nt Smoker eCW1 (Formerly [facility]) Smoking 11/12/2019 12:00:00 AM EDT Current Smoker completed Curre nt Smoker eCW1 (Formerly [facility]) Smoking 11/12/2019 12:00:00 AM EDT Current Smoker completed Curre nt Smoker eCW1 (Formerly [facility]) Smoking 09/04/2019 12:00:00 AM EDT Current Smoker completed Curre nt Smoker eCW1 (Formerly [facility]) Smoking 09/04/2019 12:00:00 AM EDT Current Smoker completed Curre nt Smoker eCW1 (Formerly [facility]) Smoking 09/04/2019 12:00:00 AM EDT Current Smoker completed Curre nt Smoker eCW1 (Formerly [facility]) Smoking 09/04/2019 12:00:00 AM EDT Current Smoker completed Curre nt Smoker eCW1 (Formerly [facility]) Smoking 09/04/2019 12:00:00 AM EDT Current Smoker completed Curre nt Smoker eCW1 (Formerly [facility]) Smoking 09/04/2019 12:00:00 AM EDT Current Smoker completed Curre nt Smoker eCW1 (Formerly [facility]) Smoking 09/04/2019 12:00:00 AM EDT Current Smoker completed Curre nt Smoker eCW1 (Formerly [facility]) Smoking 08/31/2019 12:00:00 AM EDT Current Smoker completed Curre nt Smoker eCW1 (Formerly [facility]) Smoking 08/31/2019 12:00:00 AM EDT Current Smoker completed Curre nt Smoker eCW1 (Formerly [facility]) Smoking 08/31/2019 12:00:00 AM EDT Current Smoker completed Curre nt Smoker eCW1 (Formerly [facility]) Smoking 08/25/2019 12:00:00 AM EDT Current Smoker completed Curre nt Smoker eCW1 (Formerly [facility]) Smoking 08/25/2019 12:00:00 AM EDT Current Smoker completed Curre nt Smoker eCW1 (Formerly [facility]) Smoking 08/25/2019 12:00:00 AM EDT Current Smoker completed Curre nt Smoker eCW1 (Formerly [facility]) Smoking 08/25/2019 12:00:00 AM EDT Current Smoker completed Curre nt Smoker eCW1 (Formerly [facility]) Smoking 08/25/2019 12:00:00 AM EDT Current Smoker completed Curre nt Smoker eCW1 (Formerly [facility]) Smoking 08/04/2019 12:00:00 AM EDT Current Smoker completed Curre nt Smoker eCW1 (Formerly [facility]) Smoking 07/13/2019 12:00:00 AM EDT Current Smoker completed Curre nt Smoker eCW1 (Formerly [facility]) Smoking 07/13/2019 12:00:00 AM EDT Current Smoker completed Curre nt Smoker eCW1 (Formerly [facility]) Smoking 07/13/2019 12:00:00 AM EDT Current Smoker completed Curre nt Smoker eCW1 (Formerly [facility]) Smoking 07/13/2019 12:00:00 AM EDT Current Smoker completed Curre nt Smoker eCW1 (Formerly [facility]) Alcohol intake 04/04/2019 12:00:00 AM EST Current non-d alma of alcohol (finding) completed Current non-drinker of alcohol (finding) [facility] Cigarette pack-years 04/04/2019 12:00:00 AM EST UNK completed [facility] Cigarettes smoked current (pack per day) - Reported 04/04/19 12:00:00 AM EST UNK completed [facility] Smoking 04/04/2019 12:00:00 AM EST Current every day smoker co mpleted Current every day smoker [facility] Vital Signs ID Date Data Source UNK Name Value Range Interpretation Code Description Data Source(s) Diastolic blood pressure 84 mm[Hg] 84 mm[Hg] eCW1 ([facility]) Systolic blood pressure 130 mm[Hg] 130 mm[Hg] e CW1 ([facility]) Body temperature 97.5 [degF] 97.5 [degF] eCW1 ( [facility]) Respiratory rate 18 /min 18 /min eCW1 ([facility]) Heart rate 102 /min 102 /min eCW1 ([facility]) Body mass index (BMI) [Ratio] 23.03 kg/m2 23.03 kg/m2 eCW1 ([facility]ly [facility]) Body height 69 [in_i] 69 [in_i] eCW1 ([facility]) Body weight 156 [lb_av] 156 [lb_av] eCW1 ([facility]) Diastolic blood pressure 78 mm[Hg] 78 mm[Hg] eCW1 ([facility]) Systolic blood pressure 132 mm[Hg] 132 mm[Hg] e CW1 ([facility]) Body temperature 98.0 [degF] 98.0 [degF] eCW1 ( [facility]) Respiratory rate 18 /min 18 /min eCW1 ([facility]) Heart rate 99 /min 99 /min eCW1 ([facility]) Body mass index (BMI) [Ratio] 23.33 kg/m2 23.33 kg/m2 eCW1 ([facility]) Body height 69 [in_i] 69 [in_i] eCW1 ([facility]) Body weight 158 [lb_av] 158 [lb_av] eCW1 ([facility]) Diastolic blood pressure 90 mm[Hg] 90 mm[Hg] eCW1 ([facility]) Systolic blood pressure 140 mm[Hg] 140 mm[Hg] e CW1 ([facility]) Body temperature [degF] eCW1 ([facility]) Respiratory rate 18 /min 18 /min eCW1 ([facility]) Heart rate 112 /min 112 /min eCW1 ([facility]) Body mass index (BMI) [Ratio] 23.18 kg/m2 23.18 kg/m2 eCW1 ([facility]) Body height 69 [in_i] 69 [in_i] eCW1 ([facility]) Body weight 157 [lb_av] 157 [lb_av] eCW1 ([facility]) Diastolic blood pressure 80 mm[Hg] 80 mm[Hg] eCW1 ([facility]) Systolic blood pressure 130 mm[Hg] 130 mm[Hg] e CW1 ([facility]) Body temperature 98.2 [degF] 98.2 [degF] eCW1 ( [facility]) Respiratory rate 18 /min 18 /min eCW1 ([facility]) Heart rate 104 /min 104 /min eCW1 ([facility]) Body mass index (BMI) [Ratio] 23.45 kg/m2 23.45 kg/m2 eCW1 ([facility]) Body height 69 [in_i] 69 [in_i] eCW1 ([facility]) Body weight 158.8 [lb_av] 158.8 [lb_av] eCW1 ([facility]) Diastolic blood pressure 100 mm[Hg] 100 mm[Hg] eCW1 ([facility]) Systolic blood pressure 150 mm[Hg] 150 mm[Hg] e CW1 ([facility]) Body temperature 98.2 [degF] 98.2 [degF] eCW1 ( [facility]) Respiratory rate 18 /min 18 /min eCW1 ([facility]) Heart rate 92 /min 92 /min eCW1 ([facility]) Body mass index (BMI) [Ratio] 23.74 kg/m2 23.74 kg/m2 W1 ([facility]) Body height 69 [in_i] 69 [in_i] eCW1 ([facility]) Body weight 160.8 [lb_av] 160.8 [lb_av] eCW1 ([facility]) Diastolic blood pressure 98 mm[Hg] 98 mm[Hg] eCW1 ([facility]) Systolic blood pressure 146 mm[Hg] 146 mm[Hg] e CW1 ([facility]) Body temperature 97.6 [degF] 97.6 [degF] eCW1 ( [facility]) Respiratory rate 18 /min 18 /min eCW1 ([facility]) Heart rate 75 /min 75 /min eCW1 ([facility]) Body mass index (BMI) [Ratio] 23.86 kg/m2 23.86 kg/m2 eCW1 ([facility]) Body height 69 [in_i] 69 [in_i] eCW1 ([facility]) Body weight 161.6 [lb_av] 161.6 [lb_av] eCW1 ([facility]) Diastolic blood pressure 93 mm[Hg] 93 mm[Hg] eCW1 ([facility]) Systolic blood pressure 136 mm[Hg] 136 mm[Hg] e CW1 ([facility]) Body temperature 98.6 [degF] 98.6 [degF] eCW1 ( [facility]) Respiratory rate 16 /min 16 /min eCW1 ([facility]) Heart rate 69 /min 69 /min eCW1 ([facility]) Body mass index (BMI) [Ratio] 23.63 kg/m2 23.63 kg/m2 eCW1 ([facility]) Body height 69 [in_i] 69 [in_i] eCW1 ([facility]) Body weight 160 [lb_av] 160 [lb_av] eCW1 ([facility]) Diastolic blood pressure 96 mm[Hg] 96 mm[Hg] eCW1 ([facility]) Systolic blood pressure 148 mm[Hg] 148 mm[Hg] e CW1 ([facility]) Body temperature 98.3 [degF] 98.3 [degF] eCW1 ( [facility]) Respiratory rate 18 /min 18 /min eCW1 ([facility]) Heart rate 73 /min 73 /min eCW1 ([facility]) Body mass index (BMI) [Ratio] 23.42 kg/m2 23.42 kg/m2 eCW1 ([facility]) Body height 69 [in_i] 69 [in_i] eCW1 ([facility]) Body weight 158.6 [lb_av] 158.6 [lb_av] eCW1 ([facility]) Diastolic blood pressure 80 mm[Hg] 80 mm[Hg] eCW1 ([facility]) Systolic blood pressure 120 mm[Hg] 120 mm[Hg] e CW1 ([facility]) Body temperature 97.8 [degF] 97.8 [degF] eCW1 ( [facility]) Respiratory rate 18 /min 18 /min eCW1 ([facility]) Heart rate 103 /min 103 /min eCW1 ([facility]) Body mass index (BMI) [Ratio] 24.19 kg/m2 24.19 kg/m2 eCW1 ([facility]) Body height 69 [in_i] 69 [in_i] eCW1 ([facility]) Body weight 163.8 [lb_av] 163.8 [lb_av] eCW1 ([facility]) Diastolic blood pressure 84 mm[Hg] 84 mm[Hg] eCW1 ([facility]) Systolic blood pressure 198 mm[Hg] 198 mm[Hg] e CW1 ([facility]) Body temperature 97.0 [degF] 97.0 [degF] eCW1 ( [facility]) Respiratory rate 18 /min 18 /min eCW1 ([facility]) Heart rate 89 /min 89 /min eCW1 ([facility]) Body mass index (BMI) [Ratio] 24.25 kg/m2 24.25 kg/m2 W1 ([facility]) Body height 69 [in_i] 69 [in_i] eCW1 ([facility]) Body weight 164.2 [lb_av] 164.2 [lb_av] eCW1 ([facility]) Body mass index (BMI) [Ratio] 24.9 kg/m2 24.9 k g/m2 MEDENT ([facility], ) Body weight 164.00 [lb_av] 164.00 [lb_av] MEDEN T ([facility], ) Body height 68 [in_i] 68 [in_i] MEDENT ([facility], ) 5'8" Respiratory rate 14 /min 14 /min MEDENT ( [facility] ) Heart rate 78 /min 78 /min MEDENT ([facility]) Diastolic blood pressure 80 mm[Hg] 80 mm[Hg] MEDENT ([facility]) Systolic blood pressure 120 mm[Hg] 120 mm[Hg] M EDENT ([facility] ) Diastolic blood pressure 82 mm[Hg] 82 mm[Hg] eCW1 ([facility]) Systolic blood pressure 120 mm[Hg] 120 mm[Hg] e CW1 ([facility]) Body temperature 98 [degF] 98 [degF] eCW1 ([facility]) Respiratory rate 18 /min 18 /min eCW1 ([facility]) Heart rate 125 /min 125 /min eCW1 ([facility]) Body mass index (BMI) [Ratio] 24.19 kg/m2 24.19 kg/m2 W1 ([facility]) Body height 69 [in_i] 69 [in_i] eCW1 ([facility]) Body weight 163.8 [lb_av] 163.8 [lb_av] eCW1 ([facility]) Diastolic blood pressure 78 mm[Hg] 78 mm[Hg] eCW1 ([facility]) Systolic blood pressure 130 mm[Hg] 130 mm[Hg] e CW1 ([facility]) Body temperature 98.5 [degF] 98.5 [degF] eCW1 ( [facility]) Respiratory rate 18 /min 18 /min eCW1 ([facility]) Heart rate 102 /min 102 /min eCW1 ([facility]) Body mass index (BMI) [Ratio] 24.57 kg/m2 24.57 kg/m2 eCW1 ([facility]) Body height 69 [in_i] 69 [in_i] eCW1 ([facility]) Body weight 166.4 [lb_av] 166.4 [lb_av] eCW1 ([facility]) Diastolic blood pressure 70 mm[Hg] 70 mm[Hg] eCW1 ([facility]) Systolic blood pressure 110 mm[Hg] 110 mm[Hg] e CW1 ([facility]) Body temperature 97.3 [degF] 97.3 [degF] eCW1 ( [facility]) Respiratory rate 18 /min 18 /min eCW1 ([facility]) Heart rate 107 /min 107 /min eCW1 ([facility]) Body mass index (BMI) [Ratio] 24.22 kg/m2 24.22 kg/m2 eCW1 ([facility]) Body height 69 [in_i] 69 [in_i] eCW1 ([facility]) Body weight 164 [lb_av] 164 [lb_av] eCW1 ([facility]) Diastolic blood pressure 85 mm[Hg] 85 mm[Hg] eCW1 ([facility]) Systolic blood pressure 112 mm[Hg] 112 mm[Hg] e CW1 ([facility]) Body temperature 98.3 [degF] 98.3 [degF] eCW1 ( [facility]) Respiratory rate 18 /min 18 /min eCW1 ([facility]) Heart rate 107 /min 107 /min eCW1 ([facility]) Body mass index (BMI) [Ratio] 23.95 kg/m2 23.95 kg/m2 eCW1 ([facility]) Body height 69 [in_i] 69 [in_i] eCW1 ([facility]) Body weight 162.2 [lb_av] 162.2 [lb_av] eCW1 ([facility]) Diastolic blood pressure 88 mm[Hg] 88 mm[Hg] eCW1 ([facility]) Systolic blood pressure 135 mm[Hg] 135 mm[Hg] e CW1 ([facility]) Body temperature 97.5 [degF] 97.5 [degF] eCW1 ( [facility]) Respiratory rate 18 /min 18 /min eCW1 ([facility]) Heart rate 86 /min 86 /min eCW1 ([facility]) Body mass index (BMI) [Ratio] 24.22 kg/m2 24.22 kg/m2 eCW1 ([facility]) Body height 69 [in_us] 69 [in_us] eCW1 ([facility]) Body weight Measured 164 [lb_av] 164 [lb_av] eC W1 ([facility]) Diastolic blood pressure 86 mm[Hg] 86 mm[Hg] eCW1 ([facility]) Systolic blood pressure 131 mm[Hg] 131 mm[Hg] e CW1 ([facility]) Body temperature 97.9 [degF] 97.9 [degF] eCW1 ( [facility]) Respiratory rate 16 /min 16 /min eCW1 ([facility]) Heart rate 93 /min 93 /min eCW1 ([facility]) Body mass index (BMI) [Ratio] 24.22 kg/m2 24.22 kg/m2 W1 ([facility]) Body height 69 [in_us] 69 [in_us] eCW1 ([facility]) Body weight Measured 164 [lb_av] 164 [lb_av] eC W1 ([facility]) Diastolic blood pressure 94 mm[Hg] 94 mm[Hg] eCW1 ([facility]) Systolic blood pressure 137 mm[Hg] 137 mm[Hg] e CW1 ([facility]) Body temperature 98.5 [degF] 98.5 [degF] eCW1 ( [facility]) Respiratory rate 16 /min 16 /min eCW1 ([facility]) Heart rate 90 /min 90 /min eCW1 ([facility]) Body mass index (BMI) [Ratio] 24.22 kg/m2 24.22 kg/m2 eCW1 ([facility]) Body height 69 [in_us] 69 [in_us] eCW1 ([facility]) Body weight Measured 164 [lb_av] 164 [lb_av] eC W1 ([facility]) Diastolic blood pressure 76 mm[Hg] 76 mm[Hg] eCW1 ([facility]) Systolic blood pressure 132 mm[Hg] 132 mm[Hg] e CW1 ([facility]) Body temperature 97.9 [degF] 97.9 [degF] eCW1 ( [facility]) Respiratory rate 18 /min 18 /min eCW1 ([facility]) Heart rate 81 /min 81 /min eCW1 ([facility]) Body mass index (BMI) [Ratio] 24.36 kg/m2 24.36 kg/m2 eCW1 ([facility]) Body height 69 [in_us] 69 [in_us] eCW1 ([facility]) Body weight Measured 165 [lb_av] 165 [lb_av] eC W1 ([facility]) Diastolic blood pressure 86 mm[Hg] 86 mm[Hg] eCW1 ([facility]) Systolic blood pressure 138 mm[Hg] 138 mm[Hg] e CW1 ([facility]) Body temperature 97.1 [degF] 97.1 [degF] eCW1 ( [facility]) Respiratory rate 18 /min 18 /min eCW1 ([facility]) Heart rate 77 /min 77 /min eCW1 ([facility]) Body mass index (BMI) [Ratio] 24.36 kg/m2 24.36 kg/m2 eCW1 ([facility]) Body height 69 [in_us] 69 [in_us] eCW1 ([facility]) Body weight Measured 165.0 [lb_av] 165.0 [lb_av ] eCW1 ([facility]) Diastolic blood pressure 91 mm[Hg] 91 mm[Hg] eCW1 ([facility]) Systolic blood pressure 145 mm[Hg] 145 mm[Hg] e CW1 ([facility]) Body temperature 97.9 [degF] 97.9 [degF] eCW1 ( [facility]) Respiratory rate 18 /min 18 /min eCW1 ([facility]) Heart rate 76 /min 76 /min eCW1 ([facility]) Body mass index (BMI) [Ratio] 24.13 kg/m2 24.13 kg/m2 eCW1 ([facility]) Body height 69 [in_us] 69 [in_us] eCW1 ([facility]) Body weight Measured 163.4 [lb_av] 163.4 [lb_av ] eCW1 ([facility]) Diastolic blood pressure 101 mm[Hg] 101 mm[Hg] eCW1 ([facility]) Systolic blood pressure 141 mm[Hg] 141 mm[Hg] e CW1 ([facility]) Body temperature 97.9 [degF] 97.9 [degF] eCW1 ( [facility]) Respiratory rate 18 /min 18 /min eCW1 ([facility]) Heart rate 82 /min 82 /min eCW1 ([facility]) Body mass index (BMI) [Ratio] 24.13 kg/m2 24.13 kg/m2 eCW1 ([facility]) Body height 69 [in_us] 69 [in_us] eCW1 ([facility]) Body weight Measured 163.4 [lb_av] 163.4 [lb_av ] eCW1 ([facility]) Diastolic blood pressure 84 mm[Hg] 84 mm[Hg] eCW1 ([facility]) Systolic blood pressure 120 mm[Hg] 120 mm[Hg] e CW1 ([facility]) Body temperature 97.2 [degF] 97.2 [degF] eCW1 ( [facility]) Respiratory rate 18 /min 18 /min eCW1 ([facility]) Heart rate 95 /min 95 /min eCW1 ([facility]) Body mass index (BMI) [Ratio] 23.60 kg/m2 23.60 kg/m2 eCW1 ([facility]) Body height 69 [in_us] 69 [in_us] eCW1 ([facility]) Body weight Measured 159.8 [lb_av] 159.8 [lb_av ] eCW1 ([facility]) ID Date Data Source [id number] 06/01/2019 11:45:02 AM [facility] Name Value Range Interpretation Code Description Data Source(s) WEIGHT RECORDED 165 lb 165 lb [facility] Body height Measured 69 in 69 in [facility] Patient Treatment Plan of Care Planned Activity Planned Date Details Description Data Source (s) Morphine Sulfate 15 MG Oral Tablet 02/23/2020 12:00:00 AM EST eCW1 ([facility]) Acetaminophen 325 MG / Oxycodone Hydrochloride 10 MG O ral Tablet [Percocet] 02/23/2020 12:00:00 AM EST eCW1 ([facility]) Morphine Sulfate 15 MG Oral Tablet 02/23/2020 12:00:00 AM EST eCW1 ([facility]) Acetaminophen 325 MG / Oxycodone Hydrochloride 10 MG O ral Tablet [Percocet] 02/23/2020 12:00:00 AM EST eCW1 ([facility]) Morphine Sulfate 15 MG Oral Tablet 02/23/2020 12:00:00 AM EST eCW1 ([facility]) Acetaminophen 325 MG / Oxycodone Hydrochloride 10 MG O ral Tablet [Percocet] 02/23/2020 12:00:00 AM EST eCW1 ([facility]) Budesonide 180 MCG/ACT 02/16/2020 12:00:00 AM EST eCW1 ([facility]) Budesonide 180 MCG/ACT 02/16/2020 12:00:00 AM EST eCW1 ([facility]) Budesonide 180 MCG/ACT 02/16/2020 12:00:00 AM EST eCW1 (Formerly [facility]) Albuterol 0.833 MG/ML / Ipratropium [place] 0.167 MG/M L Inhalant Solution 01/28/2020 12:00:00 AM EST eCW1 ([facility]) Albuterol 0.833 MG/ML / Ipratropium [place] 0.167 MG/M L Inhalant Solution 01/28/2020 12:00:00 AM EST eCW1 ([facility]) Albuterol 0.833 MG/ML / Ipratropium [place] 0.167 MG/M L Inhalant Solution 01/28/2020 12:00:00 AM EST eCW1 ([facility]) Albuterol 0.833 MG/ML / Ipratropium [place] 0.167 MG/M L Inhalant Solution 01/28/2020 12:00:00 AM EST eCW1 ([facility]) Albuterol 0.833 MG/ML / Ipratropium [place] 0.167 MG/M L Inhalant Solution 01/28/2020 12:00:00 AM EST eCW1 ([facility]) Albuterol 0.833 MG/ML / Ipratropium [place] 0.167 MG/M L Inhalant Solution 01/28/2020 12:00:00 AM EST eCW1 ([facility]) Morphine Sulfate ER 15 MG 01/27/2020 12:00:00 AM EST eCW1 (Formerly [facility]) Morphine Sulfate 15 MG Extended Release Oral Tablet 01/27/20 12:00:00 AM EST eCW1 (Formerly [facility]) Morphine Sulfate 15 MG Oral Tablet 01/27/2020 12:00:00 AM EST eCW1 (Formerly [facility]) Morphine Sulfate ER 15 MG 01/27/2020 12:00:00 AM EST eCW1 (Formerly [facility]) Morphine Sulfate 15 MG Extended Release Oral Tablet 01/27/20 12:00:00 AM EST eCW1 ([facility]ly [facility]) Morphine Sulfate 15 MG Oral Tablet 01/27/2020 12:00:00 AM EST eCW1 (Formerly [facility]) Morphine Sulfate ER 15 MG 01/26/2020 12:00:00 AM EST eCW1 (Formerly [facility]) Acetaminophen 325 MG / Oxycodone Hydrochloride 10 MG O ral Tablet [Percocet] 01/22/2020 12:00:00 AM EST eCW1 ([facility]) Acetaminophen 325 MG / Oxycodone Hydrochloride 10 MG O ral Tablet [Percocet] 01/22/2020 12:00:00 AM EST eCW1 ([facility]) Acetaminophen 325 MG / Oxycodone Hydrochloride 10 MG O ral Tablet [Percocet] 01/22/2020 12:00:00 AM EST eCW1 ([facility]) Acetaminophen 325 MG / Oxycodone Hydrochloride 10 MG O ral Tablet [Percocet] 01/22/2020 12:00:00 AM EST eCW1 ([facility]) Acetaminophen 325 MG / Oxycodone Hydrochloride 10 MG O ral Tablet [Percocet] 01/22/2020 12:00:00 AM EST eCW1 ([facility]) Acetaminophen 325 MG / Oxycodone Hydrochloride 10 MG O ral Tablet [Percocet] 01/22/2020 12:00:00 AM EST eCW1 ([facility]) Acetaminophen 325 MG / Oxycodone Hydrochloride 10 MG O ral Tablet [Percocet] 01/22/2020 12:00:00 AM EST eCW1 ([facility]) Morphine Sulfate ER 15 MG 01/20/2020 12:00:00 AM EST eCW1 (Formerly [facility]) Morphine Sulfate ER 15 MG 01/20/2020 12:00:00 AM EST eCW1 ([facility]ly [facility]) Morphine Sulfate ER 15 MG 01/20/2020 12:00:00 AM EST eCW1 (Formerly [facility]) Morphine Sulfate ER 15 MG 01/20/2020 12:00:00 AM EST eCW1 ([facility]ly [facility]) Morphine Sulfate ER 15 MG 01/20/2020 12:00:00 AM EST eCW1 ([facility]ly [facility]) Morphine Sulfate ER 15 MG 01/20/2020 12:00:00 AM EST eCW1 ([facility]ly [facility]) Morphine Sulfate ER 15 MG 01/20/2020 12:00:00 AM EST eCW1 (Formerly [facility]) duloxetine 30 MG Delayed Release Oral Capsule [Cymbalt a] 01/13/2020 12:00:00 AM EST eCW1 ([facility]) Spiriva Respimat 1.25 MCG/ACT 12/29/2019 12:00:00 AM EST eCW1 (Formerly [facility]) Spiriva Respimat 1.25 MCG/ACT 12/29/2019 12:00:00 AM EST eCW1 (Formerly [facility]) Spiriva Respimat 1.25 MCG/ACT 12/29/2019 12:00:00 AM EST eCW1 ([facility]ly [facility]) Spiriva Respimat 1.25 MCG/ACT 12/29/2019 12:00:00 AM EST eCW1 ([facility]ly [facility]) Spiriva Respimat 1.25 MCG/ACT 12/29/2019 12:00:00 AM EST eCW1 (Formerly [facility]) Spiriva Respimat 1.25 MCG/ACT 12/29/2019 12:00:00 AM EST eCW1 ([facility]ly [facility]) Spiriva Respimat 1.25 MCG/ACT 12/29/2019 12:00:00 AM EST eCW1 ([facility]ly [facility]) Spiriva Respimat 1.25 MCG/ACT 12/29/2019 12:00:00 AM EST eCW1 ([facility]ly [facility]) Spiriva Respimat 1.25 MCG/ACT 12/29/2019 12:00:00 AM EST eCW1 ([facility]ly [facility]) Spiriva Respimat 1.25 MCG/ACT 12/29/2019 12:00:00 AM EST eCW1 (Formerly [facility]) Acetaminophen 325 MG / Oxycodone Hydrochloride 10 MG O ral Tablet [Percocet] 12/22/2019 12:00:00 AM EST eCW1 ([facility]) Omeprazole 40 MG Delayed Release Oral Capsule 12/22/2019 12:00:00 A M EST eCW1 (Formerly [facility]) Sucralfate 1000 MG Oral Tablet 12/22/2019 12:00:00 AM EST eCW1 (Formerly [facility]) Acetaminophen 325 MG / Oxycodone Hydrochloride 10 MG O ral Tablet [Percocet] 12/22/2019 12:00:00 AM EST eCW1 ([facility]) Omeprazole 40 MG Delayed Release Oral Capsule 12/22/2019 12:00:00 A M EST eCW1 (Formerly [facility]) Sucralfate 1000 MG Oral Tablet 12/22/2019 12:00:00 AM EST eCW1 (Formerly [facility]) Acetaminophen 325 MG / Oxycodone Hydrochloride 10 MG O ral Tablet [Percocet] 12/22/2019 12:00:00 AM EST eCW1 ([facility]) Sucralfate 1000 MG Oral Tablet 12/22/2019 12:00:00 AM EST eCW1 (Formerly [facility]) Omeprazole 40 MG Delayed Release Oral Capsule 12/22/2019 12:00:00 A M EST eCW1 (Formerly [facility]) Acetaminophen 325 MG / Oxycodone Hydrochloride 10 MG O ral Tablet [Percocet] 12/22/2019 12:00:00 AM EST eCW1 ([facility]) Sucralfate 1000 MG Oral Tablet 12/22/2019 12:00:00 AM EST eCW1 (Formerly [facility]) Omeprazole 40 MG Delayed Release Oral Capsule 12/22/2019 12:00:00 A M EST eCW1 (Formerly [facility]) Acetaminophen 325 MG / Oxycodone Hydrochloride 10 MG O ral Tablet [Percocet] 12/22/2019 12:00:00 AM EST eCW1 ([facility]) Sucralfate 1000 MG Oral Tablet 12/22/2019 12:00:00 AM EST eCW1 (Formerly [facility]) Omeprazole 40 MG Delayed Release Oral Capsule 12/22/2019 12:00:00 A M EST eCW1 (Formerly [facility]) Acetaminophen 325 MG / Oxycodone Hydrochloride 10 MG O ral Tablet [Percocet] 12/22/2019 12:00:00 AM EST eCW1 ([facility]) Sucralfate 1000 MG Oral Tablet 12/22/2019 12:00:00 AM EST eCW1 (Formerly [facility]) Omeprazole 40 MG Delayed Release Oral Capsule 12/22/2019 12:00:00 A M EST eCW1 (Formerly [facility]) Omeprazole 40 MG Delayed Release Oral Capsule 12/22/2019 12:00:00 A M EST eCW1 (Formerly [facility]) Sucralfate 1000 MG Oral Tablet 12/22/2019 12:00:00 AM EST eCW1 ([facility]ly [facility]) Omeprazole 40 MG Delayed Release Oral Capsule 12/22/2019 12:00:00 A M EST eCW1 ([facility]ly [facility]) Sucralfate 1000 MG Oral Tablet 12/22/2019 12:00:00 AM EST eCW1 ([facility]ly [facility]) Omeprazole 40 MG Delayed Release Oral Capsule 12/22/2019 12:00:00 A M EST eCW1 ([facility]ly [facility]) Sucralfate 1000 MG Oral Tablet 12/22/2019 12:00:00 AM EST eCW1 ([facility]ly [facility]) Omeprazole 40 MG Delayed Release Oral Capsule 12/22/2019 12:00:00 A M EST eCW1 (Formerly [facility]) Sucralfate 1000 MG Oral Tablet 12/22/2019 12:00:00 AM EST eCW1 ([facility]ly [facility]) Omeprazole 40 MG Delayed Release Oral Capsule 12/22/2019 12:00:00 A M EST eCW1 (Formerly [facility]) Sucralfate 1000 MG Oral Tablet 12/22/2019 12:00:00 AM EST eCW1 ([facility]ly [facility]) Omeprazole 40 MG Delayed Release Oral Capsule 12/22/2019 12:00:00 A M EST eCW1 ([facility]ly [facility]) Sucralfate 1000 MG Oral Tablet 12/22/2019 12:00:00 AM EST eCW1 ([facility]) Omeprazole 40 MG Delayed Release Oral Capsule 12/22/2019 12:00:00 A M EST eCW1 ([facility]ly [facility]) Sucralfate 1000 MG Oral Tablet 12/22/2019 12:00:00 AM EST eCW1 ([facility]ly [facility]) Acetaminophen 325 MG / Oxycodone Hydrochloride 10 MG O ral Tablet [Percocet] 12/22/2019 12:00:00 AM EST eCW1 ([facility]) Omeprazole 40 MG Delayed Release Oral Capsule 12/22/2019 12:00:00 A M EST eCW1 ([facility]) Sucralfate 1000 MG Oral Tablet 12/22/2019 12:00:00 AM EST eCW1 ([facility]) Omeprazole 40 MG Delayed Release Oral Capsule 12/22/2019 12:00:00 A M EST eCW1 ([facility]) Sucralfate 1000 MG Oral Tablet 12/22/2019 12:00:00 AM EST eCW1 ([facility]) Omeprazole 40 MG Delayed Release Oral Capsule 12/22/2019 12:00:00 A M EST eCW1 ([facility]) Sucralfate 1000 MG Oral Tablet 12/22/2019 12:00:00 AM EST eCW1 ([facility]) Omeprazole 40 MG Delayed Release Oral Capsule 12/22/2019 12:00:00 A M EST eCW1 ([facility]) Sucralfate 1000 MG Oral Tablet 12/22/2019 12:00:00 AM EST eCW1 ([facility]ly [facility]) Acetaminophen 325 MG / Oxycodone Hydrochloride 10 MG O ral Tablet [Percocet] 11/24/2019 12:00:00 AM EDT eCW1 ([facility]) Diazepam 2 MG Oral Tablet 11/10/2019 12:00:00 AM EDT eCW1 ([facility]) Diazepam 2 MG Oral Tablet 11/10/2019 12:00:00 AM EDT eCW1 ([facility]ly [facility]) Diazepam 2 MG Oral Tablet 11/10/2019 12:00:00 AM EDT eCW1 ([facility]ly [facility]) Diazepam 2 MG Oral Tablet 11/10/2019 12:00:00 AM EDT eCW1 ([facility]) Diazepam 2 MG Oral Tablet 11/10/2019 12:00:00 AM EDT eCW1 (Formerly [facility]) Diazepam 2 MG Oral Tablet 11/10/2019 12:00:00 AM EDT eCW1 ([facility]) Diazepam 2 MG Oral Tablet 11/10/2019 12:00:00 AM EDT eCW1 ([facility]ly [facility]) Diazepam 2 MG Oral Tablet 11/10/2019 12:00:00 AM EDT eCW1 ([facility]ly [facility]) Diazepam 2 MG Oral Tablet 11/10/2019 12:00:00 AM EDT eCW1 ([facility]) Diazepam 2 MG Oral Tablet 11/10/2019 12:00:00 AM EDT eCW1 ([facility]) Diazepam 2 MG Oral Tablet 11/10/2019 12:00:00 AM EDT eCW1 ([facility]ly [facility]) Diazepam 2 MG Oral Tablet 11/10/2019 12:00:00 AM EDT eCW1 ([facility]ly [facility]) Diazepam 2 MG Oral Tablet 11/10/2019 12:00:00 AM EDT eCW1 ([facility]ly [facility]) Diazepam 2 MG Oral Tablet 11/10/2019 12:00:00 AM EDT eCW1 ([facility]) Diazepam 2 MG Oral Tablet 11/10/2019 12:00:00 AM EDT eCW1 ([facility]ly [facility]) Diazepam 2 MG Oral Tablet 11/10/2019 12:00:00 AM EDT eCW1 ([facility]) Diazepam 2 MG Oral Tablet 11/10/2019 12:00:00 AM EDT eCW1 ([facility]) Diazepam 2 MG Oral Tablet 11/10/2019 12:00:00 AM EDT eCW1 ([facility]) Diazepam 2 MG Oral Tablet 11/10/2019 12:00:00 AM EDT eCW1 (Formerly [facility]) Diazepam 2 MG Oral Tablet 11/10/2019 12:00:00 AM EDT eCW1 ([facility]ly [facility]) Diazepam 2 MG Oral Tablet 11/10/2019 12:00:00 AM EDT eCW1 ([facility]) Diazepam 2 MG Oral Tablet 11/10/2019 12:00:00 AM EDT eCW1 ([facility]ly [facility]) Diazepam 2 MG Oral Tablet 11/10/2019 12:00:00 AM EDT eCW1 ([facility]) Diazepam 2 MG Oral Tablet 11/10/2019 12:00:00 AM EDT eCW1 ([facility]) Diazepam 2 MG Oral Tablet 11/10/2019 12:00:00 AM EDT eCW1 ([facility]ly [facility]) Diazepam 2 MG Oral Tablet 11/10/2019 12:00:00 AM EDT eCW1 ([facility]ly [facility]) Diazepam 2 MG Oral Tablet 11/10/2019 12:00:00 AM EDT eCW1 ([facility]ly [facility]) Diazepam 2 MG Oral Tablet 11/10/2019 12:00:00 AM EDT eCW1 ([facility]ly [facility]) Diazepam 2 MG Oral Tablet 11/10/2019 12:00:00 AM EDT eCW1 (Formerly [facility]) Diazepam 2 MG Oral Tablet 11/10/2019 12:00:00 AM EDT eCW1 ([facility]ly [facility]) Diazepam 2 MG Oral Tablet 11/10/2019 12:00:00 AM EDT eCW1 ([facility]) Diazepam 2 MG Oral Tablet 11/10/2019 12:00:00 AM EDT eCW1 ([facility]) Diazepam 2 MG Oral Tablet 11/10/2019 12:00:00 AM EDT eCW1 ([facility]) Diazepam 2 MG Oral Tablet 11/10/2019 12:00:00 AM EDT eCW1 ([facility]) Diazepam 2 MG Oral Tablet 11/10/2019 12:00:00 AM EDT eCW1 ([facility]) Diazepam 2 MG Oral Tablet 11/10/2019 12:00:00 AM EDT eCW1 ([facility]) Diazepam 2 MG Oral Tablet 11/10/2019 12:00:00 AM EDT eCW1 ([facility]) Diazepam 2 MG Oral Tablet 11/10/2019 12:00:00 AM EDT eCW1 ([facility]) Diazepam 2 MG Oral Tablet 11/10/2019 12:00:00 AM EDT eCW1 ([facility]) Diazepam 2 MG Oral Tablet 11/10/2019 12:00:00 AM EDT eCW1 ([facility]) Diazepam 2 MG Oral Tablet 11/10/2019 12:00:00 AM EDT eCW1 ([facility]) Diazepam 2 MG Oral Tablet 11/10/2019 12:00:00 AM EDT eCW1 ([facility]) Diazepam 2 MG Oral Tablet 11/10/2019 12:00:00 AM EDT eCW1 ([facility]) Diazepam 2 MG Oral Tablet 11/10/2019 12:00:00 AM EDT eCW1 ([facility]) Diazepam 2 MG Oral Tablet 11/10/2019 12:00:00 AM EDT eCW1 ([facility]) Diazepam 2 MG Oral Tablet 11/10/2019 12:00:00 AM EDT eCW1 ([facility]) Diazepam 2 MG Oral Tablet 11/10/2019 12:00:00 AM EDT eCW1 ([facility]) Diazepam 2 MG Oral Tablet 11/10/2019 12:00:00 AM EDT eCW1 ([facility]ly [facility]) Diazepam 2 MG Oral Tablet 11/10/2019 12:00:00 AM EDT eCW1 (Formerly [facility]) 28 ACTUAT tiotropium 0.0025 MG/ACTUAT Metered Dose Inh aler [Spiriva] 09/04/2019 12:00:00 AM EDT eCW1 ([facility]) 28 ACTUAT tiotropium 0.0025 MG/ACTUAT Metered Dose Inh aler [Spiriva] 09/04/2019 12:00:00 AM EDT eCW1 ([facility]) 28 ACTUAT tiotropium 0.0025 MG/ACTUAT Metered Dose Inh aler [Spiriva] 09/04/2019 12:00:00 AM EDT eCW1 ([facility]) 28 ACTUAT tiotropium 0.0025 MG/ACTUAT Metered Dose Inh aler [Spiriva] 09/04/2019 12:00:00 AM EDT eCW1 ([facility]) 28 ACTUAT tiotropium 0.0025 MG/ACTUAT Metered Dose Inh aler [Spiriva] 09/04/2019 12:00:00 AM EDT eCW1 ([facility]) 28 ACTUAT tiotropium 0.0025 MG/ACTUAT Metered Dose Inh aler [Spiriva] 09/04/2019 12:00:00 AM EDT eCW1 ([facility]) 28 ACTUAT tiotropium 0.0025 MG/ACTUAT Metered Dose Inh aler [Spiriva] 09/04/2019 12:00:00 AM EDT eCW1 ([facility]) Morphine Sulfate 15 MG Extended Release Oral Tablet 09/03/19 12:00:00 AM EDT eCW1 ([facility]ly [facility]) 200 ACTUAT Albuterol 0.09 MG/ACTUAT Metered Dose Inhal er [Ventolin] 08/25/2019 12:00:00 AM EDT eCW1 ([facility]) tiotropium 0.018 MG/ACTUAT Inhalant Powder [Spiriva] 12:00:00 AM EDT eCW1 ([facility]) 200 ACTUAT Albuterol 0.09 MG/ACTUAT Metered Dose Inhal er [Ventolin] 08/25/2019 12:00:00 AM EDT eCW1 ([facility]) tiotropium 0.018 MG/ACTUAT Inhalant Powder [Spiriva] 12:00:00 AM EDT eCW1 ([facility]) 200 ACTUAT Albuterol 0.09 MG/ACTUAT Metered Dose Inhal er [Ventolin] 08/25/2019 12:00:00 AM EDT eCW1 ([facility]) tiotropium 0.018 MG/ACTUAT Inhalant Powder [Spiriva] 12:00:00 AM EDT eCW1 ([facility]) 200 ACTUAT Albuterol 0.09 MG/ACTUAT Metered Dose Inhal er [Ventolin] 08/25/2019 12:00:00 AM EDT eCW1 ([facility]) tiotropium 0.018 MG/ACTUAT Inhalant Powder [Spiriva] 12:00:00 AM EDT eCW1 ([facility]) 200 ACTUAT Albuterol 0.09 MG/ACTUAT Metered Dose Inhal er [Ventolin] 08/25/2019 12:00:00 AM EDT eCW1 ([facility]) tiotropium 0.018 MG/ACTUAT Inhalant Powder [Spiriva] 12:00:00 AM EDT eCW1 ([facility]) Chlorthalidone 25 MG Oral Tablet 08/04/2019 12:00:00 AM EDT eCW1 ([facility]ly [facility]) Propranolol Hydrochloride 10 MG Oral Tablet 08/04/2019 12:00:00 AM EDT eCW1 ([facility]ly [facility]) Morphine Sulfate 15 MG Extended Release Oral Tablet 07/28/19 12:00:00 AM EDT eCW1 ([facility]) Morphine Sulfate 15 MG Extended Release Oral Tablet 07/28/19 12:00:00 AM EDT eCW1 ([facility]) Acetaminophen 325 MG / Oxycodone Hydrochloride 10 MG O ral Tablet [Percocet] 07/13/2019 12:00:00 AM EDT eCW1 ([facility]) Morphine Sulfate 15 MG Extended Release Oral Tablet 07/07/19 12:00:00 AM EDT eCW1 ([facility]) Acetaminophen 325 MG / Oxycodone Hydrochloride 10 MG O ral Tablet [Percocet] 06/17/2019 12:00:00 AM EDT eCW1 ([facility]) Morphine Sulfate 15 MG Extended Release Oral Tablet 06/03/19 12:00:00 AM EDT eCW1 ([facility]) Acetaminophen 325 MG / Oxycodone Hydrochloride 10 MG O ral Tablet [Percocet] 05/18/2019 12:00:00 AM EDT eCW1 ([facility]) Morphine Sulfate 15 MG Extended Release Oral Tablet 05/04/19 12:00:00 AM EDT eCW1 ([facility]) Morphine Sulfate 15 MG Extended Release Oral Tablet 04/08/19 12:00:00 AM EST eCW1 ([facility]) Diazepam 5 MG Oral Tablet 04/01/2019 12:00:00 AM [facility] atorvastatin 40 MG Oral Tablet 03/26/2019 12:00:00 AM EST eCW1 ([facility]ly [facility]) atorvastatin 40 MG Oral Tablet 03/26/2019 12:00:00 AM EST eCW1 ([facility]ly [facility]) atorvastatin 40 MG Oral Tablet 03/26/2019 12:00:00 AM EST eCW1 ([facility]ly [facility]) Nystatin [id number] UNT/ML Topical Cream 03/26/2019 12:00:00 AM EST eCW1 ([facility]ly [facility]) Nystatin [id number] UNT/ML Topical Cream 03/26/2019 12:00:00 AM EST eCW1 ([facility]ly [facility]) Nystatin [id number] UNT/ML Topical Cream 03/26/2019 12:00:00 AM EST eCW1 ([facility]ly [facility]) atorvastatin 40 MG Oral Tablet 03/26/2019 12:00:00 AM EST [facility] ([facility]ly [facility]) Losartan Potassium 50 MG Oral Tablet 03/26/2019 12:00:00 AM [facility] Ergocalciferol [id number] UNT Oral Capsule 03/26/2019 12:00:00 AM [facility] atorvastatin 40 MG Oral Tablet 03/26/2019 12:00:00 AM [facility] Nystatin [id number] UNT/ML Topical Cream 03/26/2019 12:00:00 AM EST W1 ([facility]ly [facility]) atorvastatin 40 MG Oral Tablet 03/26/2019 12:00:00 AM EST W1 ([facility]ly [facility]) Acetaminophen 325 MG / Oxycodone Hydrochloride 10 MG O ral Tablet [Percocet] 03/25/2019 12:00:00 AM EST [facility] ([facility]) Morphine Sulfate 15 MG Extended Release Oral Tablet 03/10/19 12:00:00 AM EST [facility] ([facility]) Diazepam 5 MG Oral Tablet 03/05/2019 12:00:00 AM [facility] Acetaminophen 325 MG / Oxycodone Hydrochloride 10 MG O ral Tablet [Percocet] 02/17/2019 12:00:00 AM EST [facility] ([facility]) Morphine Sulfate 15 MG Extended Release Oral Tablet 02/12/19 12:00:00 AM EST [facility] ([facility]) Acetaminophen 325 MG / Oxycodone Hydrochloride 10 MG O ral Tablet [Percocet] 01/19/2019 12:00:00 AM EST [facility] ([facility]) Morphine Sulfate 15 MG Extended Release Oral Tablet 01/16/20 12:00:00 AM EST [facility] ([facility]) Morphine Sulfate 15 MG Extended Release Oral Tablet 01/16/20 12:00:00 AM [place] [address] ([facility]ly [facility]) duloxetine 30 MG Delayed Release Oral Capsule 12/30/2018 12:00:00 A M [facility] Losartan Potassium 25 MG Oral Tablet 05/14/2018 12:00:[address] [facility] Propranolol Hydrochloride 20 MG Oral Tablet 01/13/2018 12:00:00 AM EST [facility] Oxycodone Hydrochloride 5 MG Oral Tablet 06/25/2017 12:00:00 AM T [facility]
[2020-02-29] MEDS ORDERED: NS 1,000 ML IV ONE ×2 (19:00→20:45)
--- NOTE | 2020-02-29 19:39 | REPVR ---
PROCEDURE INFORMATION: Exam: CT Head Without Contrast Exam date and time: 02/29/2020 7:07 PM Age: 55 years old Clinical indication: Altered mental status/memory loss TECHNIQUE: Imaging protocol: Computed tomography of the head without contrast. Radiation optimization: All CT scans at this facility use at least one of these dose optimization techniques: automated exposure control; mA and/or kV adjustment per patient size (includes targeted exams where dose is matched to clinical indication); or iterative reconstruction. COMPARISON: CT Head without contrast 10/17/2019 7:09 AM FINDINGS: Brain: Mild diffuse cerebellar atrophy. Mild diffuse parenchymal atrophy without significant white matter disease. Cerebral ventricles: No ventriculomegaly. Bones/joints: Unremarkable. No acute fracture. Paranasal sinuses: Visualized sinuses are unremarkable. No fluid levels. Mastoid air cells: Visualized mastoid air cells are well aerated. Vasculature: Atherosclerotic calcifications are demonstrated in the intracranial carotid arteries bilaterally as well as in the vertebral basilar system. Soft tissues: Unremarkable. IMPRESSION: 1. Mild diffuse cerebellar atrophy. 2. Mild diffuse parenchymal atrophy without significant white matter disease. 3. No acute intracranial findings. Electronically signed by: Nitin Perales On 02/29/2020 19:39:28 PM
--- NOTE | 2020-02-29 20:04 | ECGEPIP ---
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
[2020-02-29] MEDS ORDERED: ACETAMINOPHEN TAB 650MG DOSE (2X325MG) PO PRN (21:45)
[2020-02-29] MEDS ORDERED: COMBAER6 INH (22:17)
[2020-02-29] MEDS ORDERED: MORP-69 PO (22:17)
[2020-02-29] MEDS ORDERED: DIAZ2TAB PO (22:17)
[2020-02-29] MEDS ORDERED: GABA-282 PO (22:17)
[2020-02-29] MEDS ORDERED: ASPI-161 PO (22:17)
[2020-02-29] MEDS ORDERED: VALS1TAB68 PO (22:17)
[2020-02-29] MEDS ORDERED: PROP20TA72 PO (22:17)
--- OUTSIDE RECORDS SUMMARY | 2020-02-29 22:20 | CCD ---
Author Author [facility] Organization [facility] Address Unknown Phone Unavailable Care Team Providers Care Assistant Hvac Mechanic Name Role Phone Jakub BOWIE MD Unavailable [...] JUDGE MD Unavailable Unavailable MANJARREZ, R PATRICK WOOD ROUTER HAND Unavailable Unavailable MANJARREZ, R PATRICK WOOD ROUTER HAND Unavailable Unavailable MANJARREZ, R PATRICK WOOD ROUTER HAND Unavailable Unavailable MANJARREZ, R PATRICK WOOD ROUTER HAND Unavailable Unavailable MANJARREZ, R PATRICK WOOD ROUTER HAND Unavailable Unavailable MANJARREZ, R PATRICK WOOD ROUTER HAND Unavailable Unavailable MANJARREZ, R PATRICK WOOD ROUTER HAND Unavailable Unavailable MANJARREZ, R PATRICK WOOD ROUTER HAND Unavailable Unavailable MANJARREZ, R PATRICK WOOD ROUTER HAND Unavailable Unavailable MANJARREZ, R PATRICK WOOD ROUTER HAND Unavailable Unavailable MANJARREZ, R PATRICK WOOD ROUTER HAND Unavailable Unavailable MANJARREZ, R PATRICK WOOD ROUTER HAND Unavailable Unavailable MANJARREZ, R PATRICK WOOD ROUTER HAND Unavailable Unavailable MANJARREZ, R PATRICK WOOD ROUTER HAND Unavailable Unavailable MANJARREZ, R PATRICK WOOD ROUTER HAND Unavailable Unavailable MANJARREZ, R PATRICK WOOD ROUTER HAND Unavailable Unavailable MANJARREZ, R PATRICK WOOD ROUTER HAND Unavailable Unavailable MANJARREZ, R PATRICK WOOD ROUTER HAND Unavailable Unavailable MANJARREZ, R PATRICK WOOD ROUTER HAND Unavailable Unavailable MANJARREZ, R PATRICK WOOD ROUTER HAND Unavailable Unavailable MANJARREZ, R PATRICK WOOD ROUTER HAND Unavailable Unavailable MANJARREZ, R PATRICK WOOD ROUTER HAND Unavailable Unavailable MANJARREZ, R PATRICK WOOD ROUTER HAND Unavailable Unavailable MANJARREZ, R PATRICK WOOD ROUTER HAND Unavailable Unavailable MANJARREZ, R PATRICK WOOD ROUTER HAND Unavailable Unavailable MANJARREZ, R PATRICK WOOD ROUTER HAND Unavailable Unavailable MANJARREZ, R PATRICK WOOD ROUTER HAND Unavailable Unavailable MANJARREZ, R PATRICK WOOD ROUTER HAND Unavailable Unavailable MANJARREZ, R PATRICK WOOD ROUTER HAND Unavailable Unavailable MANJARREZ, R PATRICK WOOD ROUTER HAND Unavailable Unavailable MANJARREZ, R PATRICK WOOD ROUTER HAND Unavailable Unavailable MANJARREZ, R PATRICK WOOD ROUTER HAND Unavailable Unavailable MANJARREZ, R PATRICK WOOD ROUTER HAND Unavailable Unavailable MANJARREZ, R PATRICK WOOD ROUTER HAND Unavailable Unavailable MANJARREZ, R PATRICK WOOD ROUTER HAND Unavailable Unavailable MANJARREZ, R PATRICK WOOD ROUTER HAND Unavailable Unavailable MANJARREZ, R PATRICK WOOD ROUTER HAND Unavailable Unavailable MANJARREZ, R PATRICK WOOD ROUTER HAND Unavailable Unavailable MANJARREZ, R PATRICK WOOD ROUTER HAND Unavailable Unavailable MANJARREZ, R PATRICK WOOD ROUTER HAND Unavailable Unavailable MANJARREZ, R PATRICK WOOD ROUTER HAND Unavailable Unavailable Poe, M Brigid WOOD ROUTER HAND Unavailable Unavailable Poe, M Brigid WOOD ROUTER HAND Unavailable Unavailable Poe, M Brigid WOOD ROUTER HAND Unavailable Unavailable Poe, M Brigid WOOD ROUTER HAND Unavailable Unavailable Poe, M Brigid WOOD ROUTER HAND Unavailable Unavailable Poe, M Brigid WOOD ROUTER HAND Unavailable Unavailable Poe, M Brigid WOOD ROUTER HAND Unavailable Unavailable Poe, M Brigid WOOD ROUTER HAND Unavailable Unavailable Poe, M Brigid WOOD ROUTER HAND Unavailable Unavailable Poe, M Brigid WOOD ROUTER HAND Unavailable Unavailable Poe, M Brigid WOOD ROUTER HAND Unavailable Unavailable Poe, M Brigid WOOD ROUTER HAND Unavailable Unavailable Poe, M Brigid WOOD ROUTER HAND Unavailable Unavailable Poe, M Brigid WOOD ROUTER HAND Unavailable Unavailable Poe, M Brigid WOOD ROUTER HAND Unavailable Unavailable Poe, M Brigid WOOD ROUTER HAND Unavailable Unavailable Poe, M Brigid WOOD ROUTER HAND Unavailable Unavailable Poe, M Brigid WOOD ROUTER HAND Unavailable Unavailable Poe, M Brigid WOOD ROUTER HAND Unavailable Unavailable Poe, M Brigid WOOD ROUTER HAND Unavailable Unavailable Poe, M Brigid WOOD ROUTER HAND Unavailable Unavailable Poe, M Brigid WOOD ROUTER HAND Unavailable Unavailable Poe, M Brigid WOOD ROUTER HAND Unavailable Unavailable Poe, M Brigid WOOD ROUTER HAND Unavailable Unavailable Poe, M Brigid WOOD ROUTER HAND Unavailable Unavailable Poe, M Brigid WOOD ROUTER HAND Unavailable Unavailable Poe, M Brigid WOOD ROUTER HAND Unavailable Unavailable Poe, M Brigid WOOD ROUTER HAND Unavailable Unavailable Poe, M Brigid WOOD ROUTER HAND Unavailable Unavailable Peo, M Brigid WOOD ROUTER HAND Unavailable Unavailable Brooklyn Huber MD Unavailable Unavailable [...] is protected by Article 27-F of the [facility] Public Health law. If you continue you may have access to information: Regarding HIV / AIDS; Provided by facilities licensed or operated by the [facility] Office of Mental Health; or Provided by the [facility] Office for People With Developmental Disabilities. If such information is present, then the following [place] State mandated warning applies: This information has [...] law may result in a fine or [place] health care facility sentence or both. A general authorization for the release of medical or other information is NOT sufficient authorization for further disc losure. Allergies and Adverse Reactions Type Description Substance Reaction Status Data Source(s ) Drug allergy Dexamethasone Dexamethasone erythema Active eCW1 ( [facility]) Drug allergy Penicillin (For Allergies Use Only) Drug allergy told as a child to not take Active eCW1 ([facility]) Family History Family Member Name Family Member Gender Family Member Status Date o f Status Description Data Source(s) Unknown Male Problem MEDENT ([facility] ) Unknown Unknown Problem MEDENT ([facility], ) Unknown Unknown Problem MEDENT ([facility], ) Unknown Unknown Problem MEDENT ([facility], ) Unknown Unknown Problem MEDENT ([facility]) Encounters Encounter Providers Location Date Indications Data Source(s ) Outpatient Attender: NU BOWIE MD 03/10/2020 12:00:00 A [facility] Unknown [address] [facility] [address] 02/23/2020 12:00:00 AM EST eCW1 ([facility]) Unknown [address] [facility] [address] 02/23/2020 12:00:00 AM EST eCW1 ([facility]) Unknown [address] [facility] [address] 02/23/2020 12:00:00 AM EST eCW1 ([facility]) Unknown [address] [facility] [address] 02/08/2020 12:00:00 AM EST eCW1 ([facility]) TeleMedicine Phone E/M by Phys 21-30 Min [address] [place] [address] 01/28/2020 12:00:00 AM EST eCW1 ([facility]) Outpatient Attender: NU BOWIE MD 01/28/2020 12:00:00 A [facility] Unknown [address] [facility] [address] 01/27/2020 12:00:00 AM EST eCW1 [facility] [place] [address] [facility] [address] 01/27/2020 12:00:00 AM EST eCW1 ([facility]) Unknown [address] [facility] [address] 01/27/2020 12:00:00 AM EST eCW1 ([facility]) Unknown [address] [facility] Y [address] 01/26/2020 12:00:00 AM EST eCW1 ([facility]) Unknown [address] [facility] Y [address] 01/25/2020 12:00:00 AM EST eCW1 ([facility]) Unknown [address] [facility] [address] 01/22/2020 12:00:00 AM EST eCW1 ([facility]) Unknown [address] [facility] [address] 01/20/2020 12:00:00 AM EST eCW1 ([facility]) Unknown [address] [facility] [address] 01/20/2020 12:00:00 AM EST eCW1 ([facility]) (BHVHLTH) [facility] Scheduled Visit [address] [place] [address] 01/19/2020 12:00:00 AM EST eCW1 ([facility]) Unknown [address] [facility] Y [address] 01/19/2020 12:00:00 AM EST eCW1 ([facility]) Unknown [address] [facility] Y [address] 01/18/2020 12:00:00 AM EST eCW1 ([facility]) Unknown [address] [facility] [address] 01/18/2020 12:00:00 AM EST eCW1 ([facility]) Outpatient [address] [facility] [place] [address] 01/15/2020 12:00:00 AM EST eCW1 ([facility]) Unknown [address] [facility] [address] 01/15/2020 12:00:00 AM EST eCW1 ([facility]) Unknown [address] [facility] [address] 01/14/2020 12:00:00 AM EST eCW1 ([facility]) Unknown [address] [facility] [address] 01/13/2020 12:00:00 AM EST eCW1 ([facility]) Unknown [address] [facility] [place] [address] 01/13/2020 12:00:00 AM EST eCW1 ([facility]) Unknown [address] [facility] [address] 01/13/2020 12:00:00 AM EST eCW1 ([facility]) Outpatient Attender: NU BOWIE MD 01/13/2020 12:00:00 A [facility] Unknown [address] [facility] [address] 01/12/2020 12:00:00 AM EST eCW1 ([facility]) Unknown [address] [facility] [address] 01/12/2020 12:00:00 AM EST eCW1 ([facility]) Unknown [address] [facility] [place] [address] 01/12/2020 12:00:00 AM EST eCW1 ([facility]) Unknown [address] [facility] [address] 01/11/2020 12:00:00 AM EST eCW1 ([facility]) Unknown [address] [facility] [place] [address] 01/10/2020 12:00:00 AM EST eCW1 ([facility]) Unknown [address] [facility] [address] 01/05/2020 12:00:00 AM EST eCW1 ([facility]) Unknown [address] [facility] [address] 01/04/2020 12:00:00 AM EST eCW1 ([facility]) Unknown [address] [facility] [address] 01/02/2020 12:00:00 AM EST eCW1 ([facility]) Unknown [address] [facility] [place] [address] 01/01/2020 12:00:00 AM EST eCW1 ([facility]) Unknown [address] [facility] [place] [address] 12/31/2019 12:00:00 AM EST eCW1 ([facility]) Unknown [address] [facility] [address] 12/29/2019 12:00:00 AM EST eCW1 ([facility]) Unknown [address] [facility] [place] [address] 12/28/2019 12:00:00 AM EST eCW1 ([facility]) Unknown [address] [facility] [address] 12/25/2019 12:00:00 AM EST eCW1 ([facility]) Outpatient [address] [facility] [place] [address] 12/24/2019 12:00:00 AM EST eCW1 ([facility]) Unknown [address] [facility] [place] [address] 12/24/2019 12:00:00 AM EST eCW1 ([facility]) Unknown [address] [facility] [address] 12/24/2019 12:00:00 AM EST eCW1 ([facility]) Unknown [address] [facility] [place] [address] 12/24/2019 12:00:00 AM EST eCW1 ([facility]) Unknown [address] [facility] [address] 12/24/2019 12:00:00 AM EST eCW1 ([facility]) Unknown [address] [facility] [address] 12/23/2019 12:00:00 AM EST eCW1 ([facility]) Unknown [address] [facility] [place] [address] 12/23/2019 12:00:00 AM EST eCW1 ([facility]) Unknown [address] [facility] [place] [address] 12/23/2019 12:00:00 AM EST eCW1 ([facility]) Unknown [address] [facility] [place] [address] 12/22/2019 12:00:00 AM EST eCW1 ([facility]) Unknown [address] [facility] [address] 12/22/2019 12:00:00 AM EST eCW1 ([facility]) Outpatient [address] [facility] [address] 12/22/2019 12:00:00 AM EST eCW1 ([facility]) Unknown [address] [facility] [address] 12/22/2019 12:00:00 AM EST eCW1 ([facility]) Unknown [address] [facility] [place] [address] 12/21/2019 12:00:00 AM EST eCW1 ([facility]) Unknown [address] [facility] [place] [address] 12/20/2019 12:00:00 AM EST eCW1 ([facility]) Unknown [address] [facility] [place] [address] 12/18/2019 12:00:00 AM EST eCW1 ([facility]) Unknown [address] [facility] Y [address] 12/18/2019 12:00:00 AM EST eCW1 ([facility]) Unknown [address] [facility] Y [address] 12/18/2019 12:00:00 AM EST eCW1 ([facility]) Unknown [address] [facility] Y [address] 12/18/2019 12:00:00 AM EST eCW1 ([facility]) Outpatient [address] [facility] Y [address] 12/17/2019 12:00:00 AM EST eCW1 ([facility]) (PN Proc 45) Pain Procedure 45 [address] [place] [address] 12/11/2019 12:00:00 AM EDT eCW1 ([facility]) Unknown [address] [facility] Y [address] 12/10/2019 12:00:00 AM EDT eCW1 ([facility]) Unknown [address] [facility] Y [address] 12/10/2019 12:00:00 AM EDT eCW1 ([facility]) Unknown [address] [facility] Y [address] 12/09/2019 12:00:00 AM EDT eCW1 ([facility]) Unknown [address] [facility] Y [address] 12/07/2019 12:00:00 AM EDT eCW1 ([facility]) Unknown [address] [facility] Y [address] 12/01/2019 12:00:00 AM EDT eCW1 ([facility]) Unknown [address] [facility] Y [address] 11/30/2019 12:00:00 AM EDT eCW1 ([facility]) Outpatient [address] [facility] Y [address] 11/30/2019 12:00:00 AM EDT eCW1 ([facility]) Unknown [address] [facility] [address] 11/29/2019 12:00:00 AM EDT eCW1 ([facility]) Outpatient [address] [facility] [address] 11/24/2019 12:00:00 AM EDT eCW1 ([facility]) Unknown [address] [facility] [address] 11/17/2019 12:00:00 AM EDT eCW1 ([facility]) (PN Proc 45) Pain Procedure 45 [address] [place] [address] 11/12/2019 12:00:00 AM EDT eCW1 ([facility]) Unknown [address] [facility] [address] 11/10/2019 12:00:00 AM EDT eCW1 ([facility]) Unknown [address] [facility] [address] 11/03/2019 12:00:00 AM EDT eCW1 ([facility]) Unknown [address] [facility] [address] 11/03/2019 12:00:00 AM EDT eCW1 ([facility]) Unknown [address] [facility] [place] [address] 11/03/2019 12:00:00 AM EDT eCW1 ([facility]) Unknown [address] [facility] [address] 11/03/2019 12:00:00 AM EDT eCW1 ([facility]) Unknown [address] [facility] Y [address] 11/03/2019 12:00:00 AM EDT eCW1 ([facility]) Unknown [address] [facility] Y [address] 11/03/2019 12:00:00 AM EDT eCW1 ([facility]) [facility] [address] [facility] [address] 10/09/2019 12:00:00 AM EDT eCW1 ([facility]) Outpatient Attender: Brooklyn Huber MD Main office - [place] 09/28/2019 03:10:00 PM EDT MEDENT ([facility] KATIE Hoyos) Outpatient Attender: Brooklyn Huber MD Main office - [place] 09/22/2019 11:30:00 AM EDT MEDENT ([facility] KATIE Hoyos) [facility] [address] [place] [address] 09/14/2019 12:00:00 AM EDT eCW1 ([facility]) Outpatient [address] [facility] [address] 09/04/2019 12:00:00 AM EDT eCW1 ([facility]) Unknown [address] [facility] [address] 09/03/2019 12:00:00 AM EDT eCW1 ([facility]) Unknown [address] [facility] [address] 09/01/2019 12:00:00 AM EDT eCW1 ([facility]) Outpatient [address] [facility] [address] 08/31/2019 12:00:00 AM EDT eCW1 ([facility]) Unknown [address] [facility] [address] 08/28/2019 12:00:00 AM EDT eCW1 ([facility]) Unknown [address] [facility] [place] [address] 08/27/2019 12:00:00 AM EDT eCW1 ([facility]) Unknown [address] [facility] [address] 08/27/2019 12:00:00 AM EDT eCW1 ([facility]) Unknown [address] [facility] [address] 08/26/2019 12:00:00 AM EDT eCW1 ([facility]) Outpatient [address] [facility] [place] [address] 08/25/2019 12:00:00 AM EDT eCW1 ([facility]) Outpatient Attender: PATRICK MANJARREZ NP 08/25/2019 12:00:0 0 AM EDT [facility] Unknown [address] [facility] [address] 08/19/2019 12:00:00 AM EDT eCW1 ([facility]) Outpatient Referrer: Brigid Poe NP 08/13/2019 05:20:00 AM EDT [facility] Visit, Est Pt., Level 3 PC [address] [place] [address] 08/13/2019 12:00:00 AM EDT eCW1 ([facility]) Outpatient [address] [facility] [address] 08/04/2019 12:00:00 AM EDT eCW1 ([facility]) Unknown [address] [facility] [address] 08/03/2019 12:00:00 AM EDT eCW1 ([facility]) [facility] [address] [place] [address] 07/30/2019 12:00:00 AM EDT eCW1 ([facility]) Outpatient Referrer: Brigid Poe NP 07/29/2019 05:54:00 AM EDT [facility] [address] [place] [address] 07/29/2019 12:00:00 AM EDT eCW1 ([facility]) Unknown [address] [facility] [address] 07/28/2019 12:00:00 AM EDT eCW1 ([facility]) Unknown [address] [facility] [address] 07/24/2019 12:00:00 AM EDT eCW1 ([facility]) Unknown [address] [facility] [address] 07/22/2019 12:00:00 AM EDT eCW1 ([facility]) Outpatient [address] [facility] [address] 07/14/2019 12:00:00 AM EDT eCW1 ([facility]) TeleMedicine Phone E/M by Phys 11-[address] [place] [address] 07/13/2019 12:00:00 AM EDT eCW1 ([facility]) [facility] [address] [place] [address] 07/13/2019 12:00:00 AM EDT eCW1 ([facility]) [facility] [address] [place] [address] 07/07/2019 12:00:00 AM EDT eCW1 ([facility]) [facility] Jay [address] [place] [address] 06/25/2019 12:00:00 AM EDT eCW1 ([facility]) [facility] [address] [place] [address] 06/24/2019 12:00:00 AM EDT eCW1 ([facility]) [facility] [address] [place] [address] 06/16/2019 12:00:00 AM EDT eCW1 ([facility]) [facility] [address] [place] [address] 06/12/2019 12:00:00 AM EDT eCW1 ([facility]) [facility] [address] [place] [address] 06/03/2019 12:00:00 AM EDT eCW1 ([facility]) [facility] Jay [address] [facility] [place] [address] 06/03/2019 12:00:00 AM EDT eCW1 ([facility]) Outpatient Attender: NU BOWIE MD 06/03/2019 [facility] [address] [place] [address] 05/28/2019 12:00:00 AM EDT eCW1 ([facility]) [facility] [address] [place] [address] 05/27/2019 12:00:00 AM EDT eCW1 ([facility]) [facility] [address] [place] [address] 05/27/2019 12:00:00 AM EDT eCW1 ([facility]) [facility] Jay [address] [place] [address] 05/22/2019 12:00:00 AM EDT eCW1 ([facility]) [facility] [address] [place] [address] 05/21/2019 12:00:00 AM EDT eCW1 ([facility]) [facility] Jay [address] [place] [address] 05/20/2019 12:00:00 AM EDT eCW1 ([facility]) [facility] [address] [place] [address] 05/18/2019 12:00:00 AM EDT eCW1 ([facility]) [facility] Dermatology [address] [place] [address] 05/15/2019 12:00:00 AM EDT eCW1 ([facility]) [facility] [address] [place] [address] 05/12/2019 12:00:00 AM EDT eCW1 ([facility]) [facility] [address] [place] [address] 05/12/2019 12:00:00 AM EDT eCW1 ([facility]) [facility] Jay [address] [place] [address] 05/08/2019 12:00:00 AM EDT eCW1 ([facility]) [facility] Jay [address] [facility] [place] [address] 05/05/2019 12:00:00 AM EDT eCW1 ([facility]) [facility] Center [address] [place] [address] 05/01/2019 12:00:00 AM EDT eCW1 ([facility]) [facility] Jay [address] [facility] [place] [address] 04/30/2019 12:00:00 AM EDT eCW1 ([facility]) [facility] [address] [place] [address] 04/30/2019 12:00:00 AM EDT eCW1 ([facility]) [facility] [address] [place] [address] 04/21/2019 12:00:00 AM EDT eCW1 ([facility]) [facility] [address] [place] [phone] 04/16/2019 12:00:00 AM EST eCW1 ([facility]) [facility] [place] [address] [place] [address] Y [phone] 04/15/2019 12:00:00 AM EST eCW1 ([facility]) [facility] [place] [address] [facility] [place] [id number] 04/14/2019 12:00:00 AM EST eCW1 ([facility]) [facility] [address] [place] [phone] 04/09/2019 12:00:00 AM EST eCW1 ([facility]) [facility] [address] [place] [phone] 04/08/2019 12:00:00 AM EST eCW1 ([facility]) Outpatient Referrer: Brigid Poe NP 04/07/2019 08:15:00 AM EST [facility] [facility] [address] [facility] [place] [phone] 04/07/2019 12:00:00 AM EST eCW1 ([facility]) [address] [phone] 04/06/2019 12:00:00 AM EST eCW1 ([facility]) [facility] [place] [address] [place] [phone] 04/02/2019 12:00:00 AM EST eCW1 ([facility]) Outpatient Attender: UN BOWIE MD [id number] 2019 12:00:00 AM EST - 04/20/2019 07:15:28 AM EDT Lesion of ulnar nerve, right upper limb [facility] Lesion of ulnar nerve, right upper limb [facility] [place] [address] [place] [phone] 03/31/2019 12:00:00 AM EST eCW1 ([facility]) [facility] [address] [place] [phone] 03/27/2019 12:00:00 AM EST eCW1 ([facility]) [facility] [place] [address] [place] [phone] 03/26/2019 12:00:00 AM EST eCW1 ([facility]) [facility] [address] [place] [phone] 03/26/2019 12:00:00 AM EST eCW1 ([facility]) [facility] [address] [place] [phone] 03/25/2019 12:00:00 AM EST eCW1 ([facility]) [facility] [address] [place] [phone] 03/25/2019 12:00:00 AM EST eCW1 ([facility]) [facility] [address] [place] [phone] 03/23/2019 12:00:00 AM EST eCW1 ([facility]) [facility] [address] [place] [phone] 03/10/2019 12:00:00 AM EST eCW1 ([facility]) Outpatient Attender: NU BOWIE MD 03/05/2019 12:00[facility] [address] [place] [phone] 03/02/2019 12:00:00 AM EST eCW1 ([facility]) [facility] [address] [place] [phone] 02/27/2019 12:00:00 AM EST eCW1 ([facility]) [facility] [address] [place] [phone] 02/24/2019 12:00:00 AM EST eCW1 ([facility]) [facility] [address] [place] [phone] 02/23/2019 12:00:00 AM EST eCW1 ([facility]) [facility] [address] [place] [phone] 02/16/2019 12:00:00 AM EST eCW1 ([facility]) [facility] [address] [place] [phone] 02/13/2019 12:00:00 AM EST eCW1 ([facility]) [facility] [address] [place] [phone] 02/13/2019 12:00:00 AM EST eCW1 ([facility]) [facility] [address] [place] [phone] 02/12/2019 12:00:00 AM EST eCW1 ([facility]) [facility] [address] [place] [phone] 01/23/2019 12:00:00 AM EST eCW1 ([facility]) [facility] [address] [place] [phone] 01/19/2019 12:00:00 AM EST eCW1 ([facility]) [facility] [address] [place] [phone] 01/14/2019 12:00:00 AM EST [facility]CW1 [facility] [address] [place] [phone] 01/12/2019 12:00:00 AM EST [facility]CW1 [facility]) [facility] [address] [place] [phone] 01/12/2019 12:00:00 AM EST [facility]CW1 [facility]) [facility] [address] [place] [phone] 01/07/2019 12:00:00 AM EST eCW1 ([facility]) [facility] [place] [address] [place] [phone] 12/31/2018 12:00:00 AM EST eCW1 ([facility]) [facility] [place] [address] [place] [phone] 12/31/2018 12:00:00 AM EST eCW1 ([facility]) Outpatient Attender: NU BOWIE MD [id number] 2018 12:00:00 AM EDT - 12/04/2018 04:58:06 PM EDT Impingement syndrome of left shoulder [facility] Impingement syndrome of left shoulder Outpatient Attender: NU BOWIE MD [id number] 2018 12:00:00 AM EDT - 09/11/2018 11:29:37 AM EDT Other specified postprocedural states [facility] Other specified postprocedural states Outpatient Attender: NU BOWIE MD [id number] 2018 12:00:00 AM EDT - 07/10/2018 03:37:50 PM EDT Complete rotator cuff tear or rupture of right shoulder, not specified as traumatic [facility] Complete rotator cuff tear or rupture of right shoulder, not specified as traumatic Immunizations Vaccine Date Status Description Data Source(s) influenza, recombinant, quadrIvalent,injectable, prese rvative free 01/15/2020 10:57:00 AM EST completed eCW1 ([facility]) influenza, recombinant, quadrIvalent,injectable, prese rvative free 01/15/2020 10:57:00 AM EST completed eCW1 ([facility]) influenza, recombinant, quadrIvalent,injectable, prese rvative free 01/15/2020 10:57:00 AM EST completed eCW1 ([facility]) influenza, recombinant, quadrIvalent,injectable, prese rvative free 01/15/2020 10:57:00 AM EST completed eCW1 ([facility]) influenza, recombinant, quadrIvalent,injectable, prese rvative free 01/15/2020 10:57:00 AM EST completed eCW1 ([facility]) influenza, recombinant, quadrIvalent,injectable, prese rvative free 01/15/2020 10:57:00 AM EST completed eCW1 ([facility]) influenza, recombinant, quadrIvalent,injectable, prese rvative free 01/15/2020 10:57:00 AM EST completed eCW1 ([facility]) influenza, recombinant, quadrIvalent,injectable, prese rvative free 01/15/2020 10:57:00 AM EST completed eCW1 ([facility]) influenza, recombinant, quadrIvalent,injectable, prese rvative free 01/15/2020 10:57:00 AM EST completed eCW1 ([facility]) influenza, recombinant, quadrIvalent,injectable, prese rvative free 01/15/2020 10:57:00 AM EST completed eCW1 ([facility]) influenza, recombinant, quadrIvalent,injectable, prese rvative free 01/15/2020 10:57:00 AM EST completed eCW1 ([facility]) influenza, recombinant, quadrIvalent,injectable, prese rvative free 01/15/2020 10:57:00 AM EST completed eCW1 ([facility]) influenza, recombinant, quadrIvalent,injectable, prese rvative free 01/15/2020 10:57:00 AM EST completed eCW1 ([facility]) influenza, recombinant, quadrIvalent,injectable, prese rvative free 01/15/2020 10:57:00 AM EST completed eCW1 ([facility]) influenza, recombinant, quadrIvalent,injectable, prese rvative free 01/15/2020 10:57:00 AM EST completed eCW1 ([facility]) influenza, recombinant, quadrIvalent,injectable, prese rvative free 01/15/2020 10:57:00 AM EST completed eCW1 ([facility]) influenza, recombinant, quadrIvalent,injectable, prese rvative free 01/15/2020 10:57:00 AM EST completed eCW1 ([facility]) influenza, recombinant, quadrIvalent,injectable, prese rvative free 01/15/2020 10:57:00 AM EST completed eCW1 ([facility]) influenza, recombinant, quadrIvalent,injectable, prese rvative free 01/15/2020 10:57:00 AM EST completed eCW1 ([facility]) influenza, recombinant, quadrIvalent,injectable, prese rvative free 01/15/2020 10:57:00 AM EST completed eCW1 ([facility]) influenza, recombinant, quadrIvalent,injectable, prese rvative free 01/15/2020 10:57:00 AM EST completed eCW1 ([facility]) influenza, recombinant, quadrIvalent,injectable, prese rvative free 01/15/2020 10:57:00 AM EST completed eCW1 ([facility]) influenza, recombinant, quadrIvalent,injectable, prese rvative free 01/15/2020 10:57:00 AM EST completed eCW1 ([facility]) Medications Medication Brand Name Start Date Product [...] {tablet_as_needed} active Percocet 10-3 25 MG eCW1 ([facility]) Morphine Sulfate 15 MG Oral Tablet Morphine Sulfate 15 MG 12:00:00 AM EST 1.0 {tablet_as_needed} active M orphine Sulfate 15 MG eCW1 ([facility]) Acetaminophen 325 MG / Oxycodone Hydroch loride 10 MG Oral Tablet [Percocet] Percocet 10-325 MG Percocet 10-325 MG 02/23/2020 12:00:00 AM EST 1.0 {tablet_as_needed} active Percocet 10-3 25 MG eCW1 ([facility]) Morphine Sulfate 15 MG Oral Tablet Morphine Sulfate 15 MG 12:00:00 AM EST 1.0 {tablet_as_needed} active M orphine Sulfate 15 MG eCW1 ([facility]) Acetaminophen 325 MG / Oxycodone Hydroch loride 10 MG Oral Tablet [Percocet] Percocet 10-325 MG Percocet 10-325 MG 02/23/2020 12:00:00 AM EST 1.0 {tablet_as_needed} active Percocet 10-3 25 MG eCW1 ([facility]) Morphine Sulfate 15 MG Oral Tablet Morphine Sulfate 15 MG 12:00:00 AM EST 1.0 {tablet_as_needed} active M orphine Sulfate 15 MG eCW1 ([facility]) Budesonide 180 MCG/ACT UNK 02/16/2020 12:00:00 AM EST 1.0 {puff } active Budesonide 180 MCG/ACT eCW1 ([facility]) Budesonide 180 MCG/ACT UNK 02/16/2020 12:00:00 AM EST 1.0 {puff } active Budesonide 180 MCG/ACT eCW1 ([facility]) Budesonide 180 MCG/ACT UNK 02/16/2020 12:00:00 AM EST 1.0 {puff } active Budesonide 180 MCG/ACT eCW1 ([facility]) 2 mg 02/09/2020 12:00:00 AM EST tablet [...] {ml_as_needed} active Ipratropium-Albuterol 0.5-2.5 (3) MG/3ML eCW1 ([facility]) Albuterol 0.833 MG/ML / Ipratropium Brom krish 0.167 MG/ML Inhalant Solution Ipratropium-Albuterol 0.5-2.5 (3) MG/3ML Ipratropium-Albuterol 0.5-2.5 (3) MG/3ML 01/28/2020 12:00:00 AM EST 3.0 {ml_as_needed} active Ipratropium-Albuterol 0.5-2.5 (3) MG/3ML eCW1 ([facility]) Albuterol 0.833 MG/ML / Ipratropium Brom krish 0.167 MG/ML Inhalant Solution Ipratropium-Albuterol 0.5-2.5 (3) MG/3ML Ipratropium-Albuterol 0.5-2.5 (3) MG/3ML 01/28/2020 12:00:00 AM EST 3.0 {ml_as_needed} active Ipratropium-Albuterol 0.5-2.5 (3) MG/3ML eCW1 ([facility]) Albuterol 0.833 MG/ML / Ipratropium Brom krish 0.167 MG/ML Inhalant Solution Ipratropium-Albuterol 0.5-2.5 (3) MG/3ML Ipratropium-Albuterol 0.5-2.5 (3) MG/3ML 01/28/2020 12:00:00 AM EST 3.0 {ml_as_needed} active Ipratropium-Albuterol 0.5-2.5 (3) MG/3ML eCW1 ([facility]) Albuterol 0.833 MG/ML / Ipratropium Brom krish 0.167 MG/ML Inhalant Solution Ipratropium-Albuterol 0.5-2.5 (3) MG/3ML Ipratropium-Albuterol 0.5-2.5 (3) MG/3ML 01/28/2020 12:00:00 AM EST 3.0 {ml_as_needed} active Ipratropium-Albuterol 0.5-2.5 (3) MG/3ML eCW1 ([facility]) Albuterol 0.833 MG/ML / Ipratropium Brom krish 0.167 MG/ML Inhalant Solution Ipratropium-Albuterol 0.5-2.5 (3) MG/3ML Ipratropium-Albuterol 0.5-2.5 (3) MG/3ML 01/28/2020 12:00:00 AM EST 3.0 {ml_as_needed} active Ipratropium-Albuterol 0.5-2.5 (3) MG/3ML eCW1 ([facility]) Albuterol 0.833 MG/ML / Ipratropium Brom krish 0.167 MG/ML Inhalant Solution Ipratropium-Albuterol 0.5-2.5 (3) MG/3ML Ipratropium-Albuterol 0.5-2.5 (3) MG/3ML 01/28/2020 12:00:00 AM EST 3.0 {ml_as_needed} active Ipratropium-Albuterol 0.5-2.5 (3) MG/3ML eCW1 ([facility]) Albuterol 0.833 MG/ML / Ipratropium Brom krish 0.167 MG/ML Inhalant Solution Ipratropium-Albuterol 0.5-2.5 (3) MG/3ML Ipratropium-Albuterol 0.5-2.5 (3) MG/3ML 01/28/2020 12:00:00 AM EST 3.0 {ml_as_needed} active Ipratropium-Albuterol 0.5-2.5 (3) MG/3ML eCW1 ([facility]) Albuterol 0.833 MG/ML / Ipratropium Brom krish 0.167 MG/ML Inhalant Solution Ipratropium-Albuterol 0.5-2.5 (3) MG/3ML Ipratropium-Albuterol 0.5-2.5 (3) MG/3ML 01/28/2020 12:00:00 AM EST 3.0 {ml_as_needed} active Ipratropium-Albuterol 0.5-2.5 (3) MG/3ML eCW1 ([facility]) Morphine Sulfate 15 MG Extended Release Oral Tablet Mo rphine Sulfate ER 15 MG Morphine Sulfate ER 15 MG 01/27/2020 12:00:00 AM EST 1.0 {tablet} active Morphine Sulfate ER 15 MG eCW1 ( [facility]) Morphine Sulfate 15 MG Oral Tablet Morphine Sulfate 15 MG 12:00:00 AM EST 1.0 {tablet_as_needed} active M orphine Sulfate 15 MG eCW1 ([facility]) Morphine Sulfate 15 MG Oral Tablet Morphine Sulfate 15 MG 12:00:00 AM EST 1.0 {tablet_as_needed} active M orphine Sulfate 15 MG eCW1 ([facility]) Morphine Sulfate ER 15 MG UNK 01/27/2020 12:00:00 AM EST 1.0 {tablet} active Morphine Sulfate ER 15 MG eCW1 ( [facility]) Morphine Sulfate ER 15 MG UNK 01/27/2020 12:00:00 AM EST 1.0 {tablet} active Morphine Sulfate ER 15 MG eCW1 ( [facility]) Morphine Sulfate 15 MG Oral Tablet Morphine Sulfate 15 MG 12:00:00 AM EST 1.0 {tablet_as_needed} active M orphine Sulfate 15 MG eCW1 ([facility]) Morphine Sulfate 15 MG Oral Tablet Morphine Sulfate 15 MG 12:00:00 AM EST 1.0 {tablet_as_needed} active M orphine Sulfate 15 MG eCW1 ([facility]) Morphine Sulfate 15 MG Oral Tablet Morphine Sulfate 15 MG 12:00:00 AM EST 1.0 {tablet_as_needed} active M orphine Sulfate 15 MG eCW1 ([facility]) Morphine Sulfate 15 MG Oral Tablet Morphine Sulfate 15 MG 12:00:00 AM EST 1.0 {tablet_as_needed} active M orphine Sulfate 15 MG eCW1 ([facility]) Morphine Sulfate 15 MG Oral Tablet Morphine Sulfate 15 MG 12:00:00 AM EST 1.0 {tablet_as_needed} active M orphine Sulfate 15 MG eCW1 ([facility]) 15 mg 01/27/2020 12:00:00 AM EST tablet [...] Morphine Sulfate ER 15 MG eCW1 ( [facility]) Morphine Sulfate 15 MG Oral Tablet Morphine Sulfate 15 MG 12:00:00 AM EST 1.0 {tablet_as_needed} active M orphine Sulfate 15 MG eCW1 ([facility]) Morphine Sulfate ER 15 MG UNK 01/26/2020 12:00:00 AM EST 1.0 {tablet} active Morphine Sulfate ER 15 MG eCW1 ( [facility]) Acetaminophen 325 MG / Oxycodone Hydroch loride 10 MG Oral Tablet [Percocet] Percocet 10-325 MG Percocet 10-325 MG 01/22/2020 12:00:00 AM EST 1.0 {tablet_as_needed} active Percocet 10-3 25 MG eCW1 ([facility]) Acetaminophen 325 MG / Oxycodone Hydroch loride 10 MG Oral Tablet [Percocet] Percocet 10-325 MG Percocet 10-325 MG 01/22/2020 12:00:00 AM EST 1.0 {tablet_as_needed} suspended Percocet 10 -325 MG eCW1 ([facility]) Acetaminophen 325 MG / Oxycodone Hydroch loride 10 MG Oral Tablet [Percocet] Percocet 10-325 MG Percocet 10-325 MG 01/22/2020 12:00:00 AM EST 1.0 {tablet_as_needed} active Percocet 10-3 25 MG eCW1 ([facility]) 10-325 mg 01/22/2020 12:00:00 AM EST tablet [...] {tablet_as_needed} suspended Percocet 10 -325 MG eCW1 ([facility]) Acetaminophen 325 MG / Oxycodone Hydroch loride 10 MG Oral Tablet [Percocet] Percocet 10-325 MG Percocet 10-325 MG 01/22/2020 12:00:00 AM EST 1.0 {tablet_as_needed} suspended Percocet 10 -325 MG eCW1 ([facility]) 2 mg 01/22/2020 12:00:00 AM EST tablet [...] {tablet_as_needed} active Percocet 10-3 25 MG eCW1 ([facility]) Acetaminophen 325 MG / Oxycodone Hydroch loride 10 MG Oral Tablet [Percocet] Percocet 10-325 MG Percocet 10-325 MG 01/22/2020 12:00:00 AM EST 1.0 {tablet_as_needed} suspended Percocet 10 -325 MG eCW1 ([facility]) Acetaminophen 325 MG / Oxycodone Hydroch loride 10 MG Oral Tablet [Percocet] Percocet 10-325 MG Percocet 10-325 MG 01/22/2020 12:00:00 AM EST 1.0 {tablet_as_needed} active Percocet 10-3 25 MG eCW1 ([facility]) Acetaminophen 325 MG / Oxycodone Hydroch loride 10 MG Oral Tablet [Percocet] Percocet 10-325 MG Percocet 10-325 MG 01/22/2020 12:00:00 AM EST 1.0 {tablet_as_needed} active Percocet 10-3 25 MG eCW1 ([facility]) Acetaminophen 325 MG / Oxycodone Hydroch loride 10 MG Oral Tablet [Percocet] Percocet 10-325 MG Percocet 10-325 MG 01/22/2020 12:00:00 AM EST 1.0 {tablet_as_needed} suspended Percocet 10 -325 MG eCW1 ([facility]) Acetaminophen 325 MG / Oxycodone Hydroch loride 10 MG Oral Tablet [Percocet] Percocet 10-325 MG Percocet 10-325 MG 01/22/2020 12:00:00 AM EST 1.0 {tablet_as_needed} suspended Percocet 10 -325 MG eCW1 ([facility]) Acetaminophen 325 MG / Oxycodone Hydroch loride 10 MG Oral Tablet [Percocet] Percocet 10-325 MG Percocet 10-325 MG 01/22/2020 12:00:00 AM EST 1.0 {tablet_as_needed} active Percocet 10-3 25 MG eCW1 ([facility]) Acetaminophen 325 MG / Oxycodone Hydroch loride 10 MG Oral Tablet [Percocet] Percocet 10-325 MG Percocet 10-325 MG 01/22/2020 12:00:00 AM EST 1.0 {tablet_as_needed} active Percocet 10-3 25 MG eCW1 ([facility]) Morphine Sulfate ER 15 MG UNK 01/20/2020 12:00:00 AM EST 1.0 {tablet} active Morphine Sulfate ER 15 MG eCW1 ( [facility]) Morphine Sulfate ER 15 MG UNK 01/20/2020 12:00:00 AM EST 1.0 {tablet} active Morphine Sulfate ER 15 MG eCW1 ( [facility]) Morphine Sulfate ER 15 MG UNK 01/20/2020 12:00:00 AM EST 1.0 {tablet} active Morphine Sulfate ER 15 MG eCW1 ( [facility]) Morphine Sulfate ER 15 MG UNK 01/20/2020 12:00:00 AM EST 1.0 {tablet} active Morphine Sulfate ER 15 MG eCW1 ( [facility]) Morphine Sulfate ER 15 MG UNK 01/20/2020 12:00:00 AM EST 1.0 {tablet} active Morphine Sulfate ER 15 MG eCW1 ( [facility]) Morphine Sulfate ER 15 MG UNK 01/20/2020 12:00:00 AM EST 1.0 {tablet} active Morphine Sulfate ER 15 MG eCW1 ( [facility]) 1 gram 01/20/2020 12:00:00 AM EST tablet 90 TAKE ONE TABLET BY MOUTH THREE TIMES A DAY ON EMPTY STOMACH BEFORE MEAL TAKE ONE TABLET BY MOUTH THREE TIMES A DAY ON EMPTY STOMACH BEFORE MEAL SOLD: 01/21/2020 [facility] Morphine Sulfate ER 15 MG UNK 01/20/2020 12:00:00 AM EST 1.0 {tablet} active Morphine Sulfate ER 15 MG eCW1 ( [facility]) 40 mg 01/16/2020 12:00:00 AM EST capsule,delayed [...] {capsule} acti ve Cymbalta 30 MG eCW1 ([facility]) duloxetine 30 MG Delayed Release Oral Capsule [Cymbalt a] Cymbalta 30 MG Cymbalta 30 MG 01/13/2020 12:00:00 AM EST 1.0 {capsule} acti ve Cymbalta 30 MG eCW1 ([facility]) 30 mg 01/13/2020 12:00:00 AM EST capsule,delayed release (DR/EC) 60 TAKE ONE CAPSULE BY MOUTH TWICE A DAY TAKE ONE CAPSULE BY MOUTH TWICE A DAY SOLD: 01/20/2020 [facility] duloxetine 30 MG Delayed Release Oral Capsule [Cymbalt a] Cymbalta 30 MG Cymbalta 30 MG 01/13/2020 12:00:00 AM EST 1.0 {capsule} acti ve Cymbalta 30 MG eCW1 ([facility]) duloxetine 30 MG Delayed Release Oral Capsule [Cymbalt a] Cymbalta 30 MG Cymbalta 30 MG 01/13/2020 12:00:00 AM EST 1.0 {capsule} acti ve Cymbalta 30 MG eCW1 ([facility]) 30 mg 01/12/2020 12:00:00 AM EST capsule,delayed [...] active Spiriva Resp imat 1.25 MCG/ACT eCW1 ([facility]) Spiriva Respimat 1.25 MCG/ACT Spiriva Respimat 1.25 MCG/ACT 12/29/2019 12:00:00 AM EST 2.0 {puffs} active Spiriva Resp imat 1.25 MCG/ACT eCW1 ([facility]) Spiriva Respimat 1.25 MCG/ACT Spiriva Respimat 1.25 MCG/ACT 12/29/2019 12:00:00 AM EST 2.0 {puffs} suspended Spiriva R espimat 1.25 MCG/ACT eCW1 ([facility]) Spiriva Respimat 1.25 MCG/ACT Spiriva Respimat 1.25 MCG/ACT 12/29/2019 12:00:00 AM EST 2.0 {puffs} active Spiriva Resp imat 1.25 MCG/ACT eCW1 ([facility]) Spiriva Respimat 1.25 MCG/ACT Spiriva Respimat 1.25 MCG/ACT 12/29/2019 12:00:00 AM EST 2.0 {puffs} active Spiriva Resp imat 1.25 MCG/ACT eCW1 ([facility]) Spiriva Respimat 1.25 MCG/ACT Spiriva Respimat 1.25 MCG/ACT 12/29/2019 12:00:00 AM EST 2.0 {puffs} active Spiriva Resp imat 1.25 MCG/ACT eCW1 ([facility]) Spiriva Respimat 1.25 MCG/ACT Spiriva Respimat 1.25 MCG/ACT 12/29/2019 12:00:00 AM EST 2.0 {puffs} active Spiriva Resp imat 1.25 MCG/ACT eCW1 ([facility]) 250 mg 12/29/2019 12:00:00 AM EST tablet 30 TAKE ONE-HALF TABLET BY MOUTH TWICE A DAY TAKE ONE-HALF TABLET BY MOUTH TWICE A DAY SOLD: 12/29/2019 [facility] Spiriva Respimat 1.25 MCG/ACT Spiriva Respimat 1.25 MCG/ACT 12/29/2019 12:00:00 AM EST 2.0 {puffs} active Spiriva Resp imat 1.25 MCG/ACT eCW1 ([facility]) Spiriva Respimat 1.25 MCG/ACT Spiriva Respimat 1.25 MCG/ACT 12/29/2019 12:00:00 AM EST 2.0 {puffs} active Spiriva Resp imat 1.25 MCG/ACT eCW1 ([facility]) 20 mg 12/29/2019 12:00:00 AM EST tablet 90 TAKE ONE TABLET BY MOUTH THREE TIMES A DAY TAKE ONE TABLET BY MOUTH THREE TIMES A DAY SOLD: 01/26/2020 [facility] Spiriva Respimat 1.25 MCG/ACT Spiriva Respimat 1.25 MCG/ACT 12/29/2019 12:00:00 AM EST 2.0 {puffs} active Spiriva Resp imat 1.25 MCG/ACT eCW1 ([facility]) Spiriva Respimat 1.25 MCG/ACT Spiriva Respimat 1.25 MCG/ACT 12/29/2019 12:00:00 AM EST 2.0 {puffs} suspended Spiriva R espimat 1.25 MCG/ACT eCW1 ([facility]) Spiriva Respimat 1.25 MCG/ACT Spiriva Respimat 1.25 MCG/ACT 12/29/2019 12:00:00 AM EST 2.0 {puffs} suspended Spiriva R espimat 1.25 MCG/ACT eCW1 ([facility]) Spiriva Respimat 1.25 MCG/ACT Spiriva Respimat 1.25 MCG/ACT 12/29/2019 12:00:00 AM EST 2.0 {puffs} active Spiriva Resp imat 1.25 MCG/ACT eCW1 ([facility]) Spiriva Respimat 1.25 MCG/ACT Spiriva Respimat 1.25 MCG/ACT 12/29/2019 12:00:00 AM EST 2.0 {puffs} active Spiriva Resp imat 1.25 MCG/ACT eCW1 ([facility]) Spiriva Respimat 1.25 MCG/ACT Spiriva Respimat 1.25 MCG/ACT 12/29/2019 12:00:00 AM EST 2.0 {puffs} active Spiriva Resp imat 1.25 MCG/ACT eCW1 ([facility]) Spiriva Respimat 1.25 MCG/ACT Spiriva Respimat 1.25 MCG/ACT 12/29/2019 12:00:00 AM EST 2.0 {puffs} suspended Spiriva R espimat 1.25 MCG/ACT eCW1 ([facility]) Spiriva Respimat 1.25 MCG/ACT Spiriva Respimat 1.25 MCG/ACT 12/29/2019 12:00:00 AM EST 2.0 {puffs} suspended Spiriva R espimat 1.25 MCG/ACT eCW1 ([facility]) Spiriva Respimat 1.25 MCG/ACT Spiriva Respimat 1.25 MCG/ACT 12/29/2019 12:00:00 AM EST 2.0 {puffs} suspended Spiriva R espimat 1.25 MCG/ACT eCW1 ([facility]) Spiriva Respimat 1.25 MCG/ACT Spiriva Respimat 1.25 MCG/ACT 12/29/2019 12:00:00 AM EST 2.0 {puffs} active Spiriva Resp imat 1.25 MCG/ACT eCW1 ([facility]) Spiriva Respimat 1.25 MCG/ACT Spiriva Respimat 1.25 MCG/ACT 12/29/2019 12:00:00 AM EST 2.0 {puffs} active Spiriva Resp imat 1.25 MCG/ACT eCW1 ([facility]) Spiriva Respimat 1.25 MCG/ACT Spiriva Respimat 1.25 MCG/ACT 12/29/2019 12:00:00 AM EST 2.0 {puffs} active Spiriva Resp imat 1.25 MCG/ACT eCW1 ([facility]) Spiriva Respimat 1.25 MCG/ACT Spiriva Respimat 1.25 MCG/ACT 12/29/2019 12:00:00 AM EST 2.0 {puffs} active Spiriva Resp imat 1.25 MCG/ACT eCW1 ([facility]) Spiriva Respimat 1.25 MCG/ACT Spiriva Respimat 1.25 MCG/ACT 12/29/2019 12:00:00 AM EST 2.0 {puffs} active Spiriva Resp imat 1.25 MCG/ACT [facility] [facility] Spiriva Respimat 1.25 MCG/ACT Spiriva Respimat 1.25 MCG/ACT 12/29/2019 12:00:00 AM EST 2.0 {puffs} active Spiriva Resp imat 1.25 MCG/ACT eCW1 ([facility]) Spiriva Respimat 1.25 MCG/ACT Spiriva Respimat 1.25 MCG/ACT 12/29/2019 12:00:00 AM EST 2.0 {puffs} suspended Spiriva R espimat 1.25 MCG/ACT eCW1 ([facility]) Spiriva Respimat 1.25 MCG/ACT Spiriva Respimat 1.25 MCG/ACT 12/29/2019 12:00:00 AM EST 2.0 {puffs} active Spiriva Resp imat 1.25 MCG/ACT eCW1 ([facility]) Spiriva Respimat 1.25 MCG/ACT Spiriva Respimat 1.25 MCG/ACT 12/29/2019 12:00:00 AM EST 2.0 {puffs} active Spiriva Resp imat 1.25 MCG/ACT eCW1 ([facility]) 20 mg 12/29/2019 12:00:00 AM EST tablet 90 TAKE ONE TABLET BY MOUTH THREE TIMES A DAY TAKE ONE TABLET BY MOUTH THREE TIMES A DAY SOLD: 12/30/2019 [facility] Spiriva Respimat 1.25 MCG/ACT Spiriva Respimat 1.25 MCG/ACT 12/29/2019 12:00:00 AM EST 2.0 {puffs} active Spiriva Resp imat 1.25 MCG/ACT eCW1 ([facility]) Spiriva Respimat 1.25 MCG/ACT Spiriva Respimat 1.25 MCG/ACT 12/29/2019 12:00:00 AM EST 2.0 {puffs} active Spiriva Resp imat 1.25 MCG/ACT eCW1 ([facility]) Spiriva Respimat 1.25 MCG/ACT Spiriva Respimat 1.25 MCG/ACT 12/29/2019 12:00:00 AM EST 2.0 {puffs} active Spiriva Resp imat 1.25 MCG/ACT eCW1 ([facility]) Spiriva Respimat 1.25 MCG/ACT Spiriva Respimat 1.25 MCG/ACT 12/29/2019 12:00:00 AM EST 2.0 {puffs} suspended Spiriva R espimat 1.25 MCG/ACT eCW1 ([facility]) Spiriva Respimat 1.25 MCG/ACT Spiriva Respimat 1.25 MCG/ACT 12/29/2019 12:00:00 AM EST 2.0 {puffs} active Spiriva Resp imat 1.25 MCG/ACT eCW1 ([facility]) Spiriva Respimat 1.25 MCG/ACT Spiriva Respimat 1.25 MCG/ACT 12/29/2019 12:00:00 AM EST 2.0 {puffs} active Spiriva Resp imat 1.25 MCG/ACT eCW1 ([facility]) Spiriva Respimat 1.25 MCG/ACT Spiriva Respimat 1.25 MCG/ACT 12/29/2019 12:00:00 AM EST 2.0 {puffs} suspended Spiriva R espimat 1.25 MCG/ACT eCW1 ([facility]) Spiriva Respimat 1.25 MCG/ACT Spiriva Respimat 1.25 MCG/ACT 12/29/2019 12:00:00 AM EST 2.0 {puffs} active Spiriva Resp imat 1.25 MCG/ACT eCW1 ([facility]) Spiriva Respimat 1.25 MCG/ACT Spiriva Respimat 1.25 MCG/ACT 12/29/2019 12:00:00 AM EST 2.0 {puffs} active Spiriva Resp imat 1.25 MCG/ACT eCW1 ([facility]) 2 mg 12/25/2019 12:00:00 AM EST tablet [...] 1.0 {tablet_on_an_empty_stomach} active Sucralfate 1 GM eCW1 ([facility]) Acetaminophen 325 MG / Oxycodone Hydroch loride 10 MG Oral Tablet [Percocet] Percocet 10-325 MG Percocet 10-325 MG 12/22/2019 12:00:00 AM EST 1.0 {tablet_as_needed} active Percocet 10-3 25 MG eCW1 ([facility]) Acetaminophen 325 MG / Oxycodone Hydroch loride 10 MG Oral Tablet [Percocet] Percocet 10-325 MG Percocet 10-325 MG 12/22/2019 12:00:00 AM EST 1.0 {tablet_as_needed} active Percocet 10-3 25 MG eCW1 ([facility]) Acetaminophen 325 MG / Oxycodone Hydroch loride 10 MG Oral Tablet [Percocet] Percocet 10-325 MG Percocet 10-325 MG 12/22/2019 12:00:00 AM EST 1.0 {tablet_as_needed} active Percocet 10-3 25 MG eCW1 ([facility]) Acetaminophen 325 MG / Oxycodone Hydroch loride 10 MG Oral Tablet [Percocet] Percocet 10-325 MG Percocet 10-325 MG 12/22/2019 12:00:00 AM EST 1.0 {tablet_as_needed} active Percocet 10-3 25 MG eCW1 ([facility]) Omeprazole 40 MG Delayed Release Oral Capsule Omeprazole 40 MG 12/22/2019 12:00:00 AM EST active Omeprazo le 40 MG eCW1 ([facility]) Acetaminophen 325 MG / Oxycodone Hydroch loride 10 MG Oral Tablet [Percocet] Percocet 10-325 MG Percocet 10-325 MG 12/22/2019 12:00:00 AM EST 1.0 {tablet_as_needed} active Percocet 10-3 25 MG eCW1 ([facility]) Omeprazole 40 MG Delayed Release Oral Capsule Omeprazole 40 MG 12/22/2019 12:00:00 AM EST active Omeprazo le 40 MG eCW1 ([facility]) Acetaminophen 325 MG / Oxycodone Hydroch loride 10 MG Oral Tablet [Percocet] Percocet 10-325 MG Percocet 10-325 MG 12/22/2019 12:00:00 AM EST 1.0 {tablet_as_needed} active Percocet 10-3 25 MG eCW1 ([facility]) Sucralfate 1000 MG Oral Tablet Sucralfate 1 GM Sucralfate 1 12/22/2019 12:00:00 AM EST 1.0 {tablet_on_an_empty_stomach} active Sucralfate 1 GM eCW1 ([facility]) Sucralfate 1000 MG Oral Tablet Sucralfate 1 GM Sucralfate 1 GM 12/22/2019 12:00:00 AM EST 1.0 {tablet_on_an_empty_stomach} active Sucralfate 1 GM eCW1 ([facility]) Omeprazole 40 MG Delayed Release Oral Capsule Omeprazole 40 MG 12/22/2019 12:00:00 AM EST active Omeprazo le 40 MG eCW1 ([facility]) Sucralfate 1000 MG Oral Tablet Sucralfate 1 GM Sucralfate 1 GM 12/22/2019 12:00:00 AM EST 1.0 {tablet_on_an_empty_stomach} active Sucralfate 1 GM eCW1 ([facility]) Sucralfate 1000 MG Oral Tablet Sucralfate 1 GM Sucralfate 1 GM 12/22/2019 12:00:00 AM EST 1.0 {tablet_on_an_empty_stomach} active Sucralfate 1 GM eCW1 ([facility]) Sucralfate 1000 MG Oral Tablet Sucralfate 1 GM Sucralfate 1 GM 12/22/2019 12:00:00 AM EST 1.0 {tablet_on_an_empty_stomach} active Sucralfate 1 GM eCW1 ([facility]) Acetaminophen 325 MG / Oxycodone Hydroch loride 10 MG Oral Tablet [Percocet] Percocet 10-325 MG Percocet 10-325 MG 12/22/2019 12:00:00 AM EST 1.0 {tablet_as_needed} active Percocet 10-3 25 MG eCW1 ([facility]) Acetaminophen 325 MG / Oxycodone Hydroch loride 10 MG Oral Tablet [Percocet] Percocet 10-325 MG Percocet 10-325 MG 12/22/2019 12:00:00 AM EST 1.0 {tablet_as_needed} active Percocet 10-3 25 MG eCW1 ([facility]) Omeprazole 40 MG Delayed Release Oral Capsule Omeprazole 40 MG 12/22/2019 12:00:00 AM EST active Omeprazo le 40 MG eCW1 ([facility]) Sucralfate 1000 MG Oral Tablet Sucralfate 1 GM Sucralfate 1 GM 12/22/2019 12:00:00 AM EST 1.0 {tablet_on_an_empty_stomach} active Sucralfate 1 GM eCW1 ([facility]) Sucralfate 1000 MG Oral Tablet Sucralfate 1 GM Sucralfate 1 GM 12/22/2019 12:00:00 AM EST 1.0 {tablet_on_an_empty_stomach} active Sucralfate 1 GM eCW1 ([facility]) Omeprazole 40 MG Delayed Release Oral Capsule Omeprazole 40 MG 12/22/2019 12:00:00 AM EST active Omeprazo le 40 MG eCW1 ([facility]) Acetaminophen 325 MG / Oxycodone Hydroch loride 10 MG Oral Tablet [Percocet] Percocet 10-325 MG Percocet 10-325 MG 12/22/2019 12:00:00 AM EST 1.0 {tablet_as_needed} active Percocet 10-3 25 MG eCW1 ([facility]) Omeprazole 40 MG Delayed Release Oral Capsule Omeprazole 40 MG 12/22/2019 12:00:00 AM EST active Omeprazo le 40 MG eCW1 ([facility]) Omeprazole 40 MG Delayed Release Oral Capsule Omeprazole 40 MG 12/22/2019 12:00:00 AM EST active Omeprazo le 40 MG eCW1 ([facility]) Sucralfate 1000 MG Oral Tablet Sucralfate 1 GM Sucralfate 1 GM 12/22/2019 12:00:00 AM EST 1.0 {tablet_on_an_empty_stomach} active Sucralfate 1 GM eCW1 ([facility]) Sucralfate 1000 MG Oral Tablet Sucralfate 1 GM Sucralfate 1 GM 12/22/2019 12:00:00 AM EST 1.0 {tablet_on_an_empty_stomach} active Sucralfate 1 GM eCW1 ([facility]) Acetaminophen 325 MG / Oxycodone Hydroch loride 10 MG Oral Tablet [Percocet] Percocet 10-325 MG Percocet 10-325 MG 12/22/2019 12:00:00 AM EST 1.0 {tablet_as_needed} active Percocet 10-3 25 MG eCW1 ([facility]) Acetaminophen 325 MG / Oxycodone Hydroch loride 10 MG Oral Tablet [Percocet] Percocet 10-325 MG Percocet 10-325 MG 12/22/2019 12:00:00 AM EST 1.0 {tablet_as_needed} active Percocet 10-3 25 MG eCW1 ([facility]) Omeprazole 40 MG Delayed Release Oral Capsule Omeprazole 40 MG 12/22/2019 12:00:00 AM EST active Omeprazo le 40 MG eCW1 ([facility]) 40 mg 12/22/2019 12:00:00 AM EST capsule,delayed release (DR/EC) 30 TAKE 1 CAPSULE BY MOUTH 30 MINS. BEFORE MORNING MEAL TAKE 1 CAPSULE BY MOUTH 30 MINS. BEFORE MORNING MEAL SOLD: 12/22/2019 [facility] Omeprazole 40 MG Delayed Release Oral Capsule Omeprazole 40 MG 12/22/2019 12:00:00 AM EST active Omeprazo le 40 MG eCW1 ([facility]) Omeprazole 40 MG Delayed Release Oral Capsule Omeprazole 40 MG 12/22/2019 12:00:00 AM EST active Omeprazo le 40 MG eCW1 ([facility]) Sucralfate 1000 MG Oral Tablet Sucralfate 1 GM Sucralfate 1 GM 12/22/2019 12:00:00 AM EST 1.0 {tablet_on_an_empty_stomach} active Sucralfate 1 GM eCW1 ([facility]) Omeprazole 40 MG Delayed Release Oral Capsule Omeprazole 40 MG 12/22/2019 12:00:00 AM EST active Omeprazo le 40 MG eCW1 ([facility]) Acetaminophen 325 MG / Oxycodone Hydroch loride 10 MG Oral Tablet [Percocet] Percocet 10-325 MG Percocet 10-325 MG 12/22/2019 12:00:00 AM EST 1.0 {tablet_as_needed} active Percocet 10-3 25 MG eCW1 ([facility]) Sucralfate 1000 MG Oral Tablet Sucralfate 1 GM Sucralfate 1 GM 12/22/2019 12:00:00 AM EST 1.0 {tablet_on_an_empty_stomach} active Sucralfate 1 GM eCW1 ([facility]) 1 gram 12/22/2019 12:00:00 AM EST tablet 90 TAKE 1 TABLET BY MOUTH ON AN EMPTY STOMACH BEFORE EACH MEAL TAKE 1 TABLET BY MOUTH ON AN EMPTY STOMA CH BEFORE EACH MEAL SOLD: 12/22/2019 [facility] Sucralfate 1000 MG Oral Tablet Sucralfate 1 GM Sucralfate 1 GM 12/22/2019 12:00:00 AM EST 1.0 {tablet_on_an_empty_stomach} active Sucralfate 1 GM eCW1 ([facility]) Acetaminophen 325 MG / Oxycodone Hydroch loride 10 MG Oral Tablet [Percocet] Percocet 10-325 MG Percocet 10-325 MG 12/22/2019 12:00:00 AM EST 1.0 {tablet_as_needed} active Percocet 10-3 25 MG eCW1 ([facility]) Sucralfate 1000 MG Oral Tablet Sucralfate 1 GM Sucralfate 1 GM 12/22/2019 12:00:00 AM EST 1.0 {tablet_on_an_empty_stomach} active Sucralfate 1 GM eCW1 ([facility]) Omeprazole 40 MG Delayed Release Oral Capsule Omeprazole 40 MG 12/22/2019 12:00:00 AM EST active Omeprazo le 40 MG eCW1 ([facility]) Sucralfate 1000 MG Oral Tablet Sucralfate 1 GM Sucralfate 1 GM 12/22/2019 12:00:00 AM EST 1.0 {tablet_on_an_empty_stomach} active Sucralfate 1 GM eCW1 ([facility]) Sucralfate 1000 MG Oral Tablet Sucralfate 1 GM Sucralfate 1 GM 12/22/2019 12:00:00 AM EST 1.0 {tablet_on_an_empty_stomach} active Sucralfate 1 GM eCW1 ([facility]) Sucralfate 1000 MG Oral Tablet Sucralfate 1 GM Sucralfate 1 GM 12/22/2019 12:00:00 AM EST 1.0 {tablet_on_an_empty_stomach} active Sucralfate 1 GM eCW1 ([facility]) Acetaminophen 325 MG / Oxycodone Hydroch loride 10 MG Oral Tablet [Percocet] Percocet 10-325 MG Percocet 10-325 MG 12/22/2019 12:00:00 AM EST 1.0 {tablet_as_needed} active Percocet 10-3 25 MG eCW1 ([facility]) Omeprazole 40 MG Delayed Release Oral Capsule Omeprazole 40 MG 12/22/2019 12:00:00 AM EST active Omeprazo le 40 MG eCW1 ([facility]) Sucralfate 1000 MG Oral Tablet Sucralfate 1 GM Sucralfate 1 GM 12/22/2019 12:00:00 AM EST 1.0 {tablet_on_an_empty_stomach} active Sucralfate 1 GM eCW1 ([facility]) Omeprazole 40 MG Delayed Release Oral Capsule Omeprazole 40 MG 12/22/2019 12:00:00 AM EST active Omeprazo le 40 MG eCW1 ([facility]) Omeprazole 40 MG Delayed Release Oral Capsule Omeprazole 40 MG 12/22/2019 12:00:00 AM EST active Omeprazo le 40 MG eCW1 ([facility]) Omeprazole 40 MG Delayed Release Oral Capsule Omeprazole 40 MG 12/22/2019 12:00:00 AM EST active Omeprazo le 40 MG eCW1 ([facility]) Acetaminophen 325 MG / Oxycodone Hydroch loride 10 MG Oral Tablet [Percocet] Percocet 10-325 MG Percocet 10-325 MG 12/22/2019 12:00:00 AM EST 1.0 {tablet_as_needed} active Percocet 10-3 25 MG eCW1 ([facility]) Omeprazole 40 MG Delayed Release Oral Capsule Omeprazole 40 MG 12/22/2019 12:00:00 AM EST active Omeprazo le 40 MG eCW1 ([facility]) Acetaminophen 325 MG / Oxycodone Hydroch loride 10 MG Oral Tablet [Percocet] Percocet 10-325 MG Percocet 10-325 MG 12/22/2019 12:00:00 AM EST 1.0 {tablet_as_needed} active Percocet 10-3 25 MG eCW1 ([facility]) Acetaminophen 325 MG / Oxycodone Hydroch loride 10 MG Oral Tablet [Percocet] Percocet 10-325 MG Percocet 10-325 MG 12/22/2019 12:00:00 AM EST 1.0 {tablet_as_needed} active Percocet 10-3 25 MG eCW1 ([facility]) Acetaminophen 325 MG / Oxycodone Hydroch loride 10 MG Oral Tablet [Percocet] Percocet 10-325 MG Percocet 10-325 MG 12/22/2019 12:00:00 AM EST 1.0 {tablet_as_needed} active Percocet 10-3 25 MG eCW1 ([facility]) Omeprazole 40 MG Delayed Release Oral Capsule Omeprazole 40 MG 12/22/2019 12:00:00 AM EST active Omeprazo le 40 MG eCW1 ([facility]) Sucralfate 1000 MG Oral Tablet Sucralfate 1 GM Sucralfate 1 GM 12/22/2019 12:00:00 AM EST 1.0 {tablet_on_an_empty_stomach} active Sucralfate 1 GM eCW1 ([facility]) Acetaminophen 325 MG / Oxycodone Hydroch loride 10 MG Oral Tablet [Percocet] Percocet 10-325 MG Percocet 10-325 MG 12/22/2019 12:00:00 AM EST 1.0 {tablet_as_needed} active Percocet 10-3 25 MG eCW1 ([facility]) Sucralfate 1000 MG Oral Tablet Sucralfate 1 GM Sucralfate 1 GM 12/22/2019 12:00:00 AM EST 1.0 {tablet_on_an_empty_stomach} active Sucralfate 1 GM eCW1 ([facility]) Omeprazole 40 MG Delayed Release Oral Capsule Omeprazole 40 MG 12/22/2019 12:00:00 AM EST active Omeprazo le 40 MG eCW1 ([facility]) Sucralfate 1000 MG Oral Tablet Sucralfate 1 GM Sucralfate 1 GM 12/22/2019 12:00:00 AM EST 1.0 {tablet_on_an_empty_stomach} active Sucralfate 1 GM eCW1 ([facility]) Omeprazole 40 MG Delayed Release Oral Capsule Omeprazole 40 MG 12/22/2019 12:00:00 AM EST active Omeprazo le 40 MG eCW1 ([facility]) Sucralfate 1000 MG Oral Tablet Sucralfate 1 GM Sucralfate 1 GM 12/22/2019 12:00:00 AM EST 1.0 {tablet_on_an_empty_stomach} active Sucralfate 1 GM eCW1 ([facility]) Omeprazole 40 MG Delayed Release Oral Capsule Omeprazole 40 MG 12/22/2019 12:00:00 AM EST active Omeprazo le 40 MG eCW1 ([facility]) Omeprazole 40 MG Delayed Release Oral Capsule Omeprazole 40 MG 12/22/2019 12:00:00 AM EST active Omeprazo le 40 MG eCW1 ([facility]) Omeprazole 40 MG Delayed Release Oral Capsule Omeprazole 40 MG 12/22/2019 12:00:00 AM EST active Omeprazo le 40 MG eCW1 ([facility]) Omeprazole 40 MG Delayed Release Oral Capsule Omeprazole 40 MG 12/22/2019 12:00:00 AM EST active Omeprazo le 40 MG eCW1 ([facility]) Omeprazole 40 MG Delayed Release Oral Capsule Omeprazole 40 MG 12/22/2019 12:00:00 AM EST active Omeprazo le 40 MG eCW1 ([facility]) Acetaminophen 325 MG / Oxycodone Hydroch loride 10 MG Oral Tablet [Percocet] Percocet 10-325 MG Percocet 10-325 MG 12/22/2019 12:00:00 AM EST 1.0 {tablet_as_needed} active Percocet 10-3 25 MG eCW1 ([facility]) Acetaminophen 325 MG / Oxycodone Hydroch loride 10 MG Oral Tablet [Percocet] Percocet 10-325 MG Percocet 10-325 MG 12/22/2019 12:00:00 AM EST 1.0 {tablet_as_needed} active Percocet 10-3 25 MG eCW1 ([facility]) Sucralfate 1000 MG Oral Tablet Sucralfate 1 GM Sucralfate 1 GM 12/22/2019 12:00:00 AM EST 1.0 {tablet_on_an_empty_stomach} active Sucralfate 1 GM eCW1 ([facility]) Sucralfate 1000 MG Oral Tablet Sucralfate 1 GM Sucralfate 1 GM 12/22/2019 12:00:00 AM EST 1.0 {tablet_on_an_empty_stomach} active Sucralfate 1 GM eCW1 ([facility]) Sucralfate 1000 MG Oral Tablet Sucralfate 1 GM Sucralfate 1 GM 12/22/2019 12:00:00 AM EST 1.0 {tablet_on_an_empty_stomach} active Sucralfate 1 GM eCW1 ([facility]) Omeprazole 40 MG Delayed Release Oral Capsule Omeprazole 40 MG 12/22/2019 12:00:00 AM EST active Omeprazo le 40 MG eCW1 ([facility]) Acetaminophen 325 MG / Oxycodone Hydroch loride 10 MG Oral Tablet [Percocet] Percocet 10-325 MG Percocet 10-325 MG 12/22/2019 12:00:00 AM EST 1.0 {tablet_as_needed} active Percocet 10-3 25 MG eCW1 ([facility]) Sucralfate 1000 MG Oral Tablet Sucralfate 1 GM Sucralfate 1 GM 12/22/2019 12:00:00 AM EST 1.0 {tablet_on_an_empty_stomach} active Sucralfate 1 GM eCW1 ([facility]) Acetaminophen 325 MG / Oxycodone Hydroch loride 10 MG Oral Tablet [Percocet] Percocet 10-325 MG Percocet 10-325 MG 12/22/2019 12:00:00 AM EST 1.0 {tablet_as_needed} active Percocet 10-3 25 MG eCW1 ([facility]) Sucralfate 1000 MG Oral Tablet Sucralfate 1 GM Sucralfate 1 GM 12/22/2019 12:00:00 AM EST 1.0 {tablet_on_an_empty_stomach} active Sucralfate 1 GM eCW1 ([facility]) Omeprazole 40 MG Delayed Release Oral Capsule Omeprazole 40 MG 12/22/2019 12:00:00 AM EST active Omeprazo le 40 MG eCW1 ([facility]) Acetaminophen 325 MG / Oxycodone Hydroch loride 10 MG Oral Tablet [Percocet] Percocet 10-325 MG Percocet 10-325 MG 12/22/2019 12:00:00 AM EST 1.0 {tablet_as_needed} active Percocet 10-3 25 MG eCW1 ([facility]) Omeprazole 40 MG Delayed Release Oral Capsule Omeprazole 40 MG 12/22/2019 12:00:00 AM EST active Omeprazo le 40 MG eCW1 ([facility]) Sucralfate 1000 MG Oral Tablet Sucralfate 1 GM Sucralfate 1 GM 12/22/2019 12:00:00 AM EST 1.0 {tablet_on_an_empty_stomach} active Sucralfate 1 GM eCW1 ([facility]) Sucralfate 1000 MG Oral Tablet Sucralfate 1 GM Sucralfate 1 GM 12/22/2019 12:00:00 AM EST 1.0 {tablet_on_an_empty_stomach} active Sucralfate 1 GM eCW1 ([facility]) Omeprazole 40 MG Delayed Release Oral Capsule Omeprazole 40 MG 12/22/2019 12:00:00 AM EST active Omeprazo le 40 MG eCW1 ([facility]) Omeprazole 40 MG Delayed Release Oral Capsule Omeprazole 40 MG 12/22/2019 12:00:00 AM EST active Omeprazo le 40 MG eCW1 ([facility]) Sucralfate 1000 MG Oral Tablet Sucralfate 1 GM Sucralfate 1 GM 12/22/2019 12:00:00 AM EST 1.0 {tablet_on_an_empty_stomach} active Sucralfate 1 GM eCW1 ([facility]) Omeprazole 40 MG Delayed Release Oral Capsule Omeprazole 40 MG 12/22/2019 12:00:00 AM EST active Omeprazo le 40 MG eCW1 ([facility]) Acetaminophen 325 MG / Oxycodone Hydroch loride 10 MG Oral Tablet [Percocet] Percocet 10-325 MG Percocet 10-325 MG 12/22/2019 12:00:00 AM EST 1.0 {tablet_as_needed} active Percocet 10-3 25 MG eCW1 ([facility]) Sucralfate 1000 MG Oral Tablet Sucralfate 1 GM Sucralfate 1 GM 12/22/2019 12:00:00 AM EST 1.0 {tablet_on_an_empty_stomach} active Sucralfate 1 GM eCW1 ([facility]) Sucralfate 1000 MG Oral Tablet Sucralfate 1 GM Sucralfate 1 GM 12/22/2019 12:00:00 AM EST 1.0 {tablet_on_an_empty_stomach} active Sucralfate 1 GM eCW1 ([facility]) Omeprazole 40 MG Delayed Release Oral Capsule Omeprazole 40 MG 12/22/2019 12:00:00 AM EST active Omeprazo le 40 MG eCW1 ([facility]) Sucralfate 1000 MG Oral Tablet Sucralfate 1 GM Sucralfate 1 GM 12/22/2019 12:00:00 AM EST 1.0 {tablet_on_an_empty_stomach} active Sucralfate 1 GM eCW1 ([facility]) Sucralfate 1000 MG Oral Tablet Sucralfate 1 GM Sucralfate 1 GM 12/22/2019 12:00:00 AM EST 1.0 {tablet_on_an_empty_stomach} active Sucralfate 1 GM eCW1 ([facility]) Omeprazole 40 MG Delayed Release Oral Capsule Omeprazole 40 MG 12/22/2019 12:00:00 AM EST active Omeprazo le 40 MG eCW1 ([facility]) Omeprazole 40 MG Delayed Release Oral Capsule Omeprazole 40 MG 12/22/2019 12:00:00 AM EST active Omeprazo le 40 MG eCW1 ([facility]) Omeprazole 40 MG Delayed Release Oral Capsule Omeprazole 40 MG 12/22/2019 12:00:00 AM EST active Omeprazo le 40 MG eCW1 ([facility]) Sucralfate 1000 MG Oral Tablet Sucralfate 1 GM Sucralfate 1 12/22/2019 12:00:00 AM EST 1.0 {tablet_on_an_empty_stomach} active Sucralfate 1 GM eCW1 ([facility]) Sucralfate 1000 MG Oral Tablet Sucralfate 1 GM Sucralfate 1 GM 12/22/2019 12:00:00 AM EST 1.0 {tablet_on_an_empty_stomach} active Sucralfate 1 GM eCW1 ([facility]) Omeprazole 40 MG Delayed Release Oral Capsule Omeprazole 40 MG 12/22/2019 12:00:00 AM EST active Omeprazo le 40 MG eCW1 ([facility]) Sucralfate 1000 MG Oral Tablet Sucralfate 1 GM Sucralfate 1 GM 12/22/2019 12:00:00 AM EST 1.0 {tablet_on_an_empty_stomach} active Sucralfate 1 GM eCW1 ([facility]) Omeprazole 40 MG Delayed Release Oral Capsule Omeprazole 40 MG 12/22/2019 12:00:00 AM EST active Omeprazo le 40 MG eCW1 ([facility]) Omeprazole 40 MG Delayed Release Oral Capsule Omeprazole 40 MG 12/22/2019 12:00:00 AM EST active Omeprazo le 40 MG eCW1 ([facility]) Omeprazole 40 MG Delayed Release Oral Capsule Omeprazole 40 MG 12/22/2019 12:00:00 AM EST active Omeprazo le 40 MG eCW1 ([facility]) Acetaminophen 325 MG / Oxycodone Hydroch loride 10 MG Oral Tablet [Percocet] Percocet 10-325 MG Percocet 10-325 MG 12/22/2019 12:00:00 AM EST 1.0 {tablet_as_needed} active Percocet 10-3 25 MG eCW1 ([facility]) Omeprazole 40 MG Delayed Release Oral Capsule Omeprazole 40 MG 12/22/2019 12:00:00 AM EST active Omeprazo le 40 MG eCW1 ([facility]) Acetaminophen 325 MG / Oxycodone Hydroch loride 10 MG Oral Tablet [Percocet] Percocet 10-325 MG Percocet 10-325 MG 12/22/2019 12:00:00 AM EST 1.0 {tablet_as_needed} active Percocet 10-3 25 MG eCW1 ([facility]) Omeprazole 40 MG Delayed Release Oral Capsule Omeprazole 40 MG 12/22/2019 12:00:00 AM EST active Omeprazo le 40 MG eCW1 ([facility]) Acetaminophen 325 MG / Oxycodone Hydroch loride 10 MG Oral Tablet [Percocet] Percocet 10-325 MG Percocet 10-325 MG 12/22/2019 12:00:00 AM EST 1.0 {tablet_as_needed} active Percocet 10-3 25 MG eCW1 ([facility]) Sucralfate 1000 MG Oral Tablet Sucralfate 1 GM Sucralfate 1 GM 12/22/2019 12:00:00 AM EST 1.0 {tablet_on_an_empty_stomach} active Sucralfate 1 GM eCW1 ([facility]) Omeprazole 40 MG Delayed Release Oral Capsule Omeprazole 40 MG 12/22/2019 12:00:00 AM EST active Omeprazo le 40 MG eCW1 ([facility]) Omeprazole 40 MG Delayed Release Oral Capsule Omeprazole 40 MG 12/22/2019 12:00:00 AM EST active Omeprazo le 40 MG eCW1 ([facility]) Sucralfate 1000 MG Oral Tablet Sucralfate 1 GM Sucralfate 1 GM 12/22/2019 12:00:00 AM EST 1.0 {tablet_on_an_empty_stomach} active Sucralfate 1 GM eCW1 ([facility]) Omeprazole 40 MG Delayed Release Oral Capsule Omeprazole 40 MG 12/22/2019 12:00:00 AM EST active Omeprazo le 40 MG eCW1 ([facility]) Omeprazole 40 MG Delayed Release Oral Capsule Omeprazole 40 MG 12/22/2019 12:00:00 AM EST active Omeprazo le 40 MG eCW1 ([facility]) Acetaminophen 325 MG / Oxycodone Hydroch loride 10 MG Oral Tablet [Percocet] Percocet 10-325 MG Percocet 10-325 MG 12/22/2019 12:00:00 AM EST 1.0 {tablet_as_needed} active Percocet 10-3 25 MG eCW1 ([facility]) Acetaminophen 325 MG / Oxycodone Hydroch loride 10 MG Oral Tablet [Percocet] Percocet 10-325 MG Percocet 10-325 MG 12/22/2019 12:00:00 AM EST 1.0 {tablet_as_needed} active Percocet 10-3 25 MG eCW1 ([facility]) Acetaminophen 325 MG / Oxycodone Hydroch loride 10 MG Oral Tablet [Percocet] Percocet 10-325 MG Percocet 10-325 MG 12/22/2019 12:00:00 AM EST 1.0 {tablet_as_needed} active Percocet 10-3 25 MG eCW1 ([facility]) Omeprazole 40 MG Delayed Release Oral Capsule Omeprazole 40 MG 12/22/2019 12:00:00 AM EST active Omeprazo le 40 MG eCW1 ([facility]) Sucralfate 1000 MG Oral Tablet Sucralfate 1 GM Sucralfate 1 GM 12/22/2019 12:00:00 AM EST 1.0 {tablet_on_an_empty_stomach} active Sucralfate 1 GM eCW1 ([facility]) Sucralfate 1000 MG Oral Tablet Sucralfate 1 GM Sucralfate 1 GM 12/22/2019 12:00:00 AM EST 1.0 {tablet_on_an_empty_stomach} active Sucralfate 1 GM eCW1 ([facility]) Sucralfate 1000 MG Oral Tablet Sucralfate 1 GM Sucralfate 1 GM 12/22/2019 12:00:00 AM EST 1.0 {tablet_on_an_empty_stomach} active Sucralfate 1 GM eCW1 ([facility]) Sucralfate 1000 MG Oral Tablet Sucralfate 1 GM Sucralfate 1 GM 12/22/2019 12:00:00 AM EST 1.0 {tablet_on_an_empty_stomach} active Sucralfate 1 GM eCW1 ([facility]) 10-325 mg 12/22/2019 12:00:00 AM EST tablet [...] {tablet_as_needed} active Percocet 10-3 25 MG eCW1 ([facility]) Omeprazole 40 MG Delayed Release Oral Capsule Omeprazole 40 MG 12/22/2019 12:00:00 AM EST active Omeprazo le 40 MG eCW1 ([facility]) Acetaminophen 325 MG / Oxycodone Hydroch loride 10 MG Oral Tablet [Percocet] Percocet 10-325 MG Percocet 10-325 MG 12/22/2019 12:00:00 AM EST 1.0 {tablet_as_needed} active Percocet 10-3 25 MG eCW1 ([facility]) Omeprazole 40 MG Delayed Release Oral Capsule Omeprazole 40 MG 12/22/2019 12:00:00 AM EST active Omeprazo le 40 MG eCW1 ([facility]) Acetaminophen 325 MG / Oxycodone Hydroch loride 10 MG Oral Tablet [Percocet] Percocet 10-325 MG Percocet 10-325 MG 12/22/2019 12:00:00 AM EST 1.0 {tablet_as_needed} active Percocet 10-3 25 MG eCW1 ([facility]) Omeprazole 40 MG Delayed Release Oral Capsule Omeprazole 40 MG 12/22/2019 12:00:00 AM EST active Omeprazo le 40 MG eCW1 ([facility]) Omeprazole 40 MG Delayed Release Oral Capsule Omeprazole 40 MG 12/22/2019 12:00:00 AM EST active Omeprazo le 40 MG eCW1 ([facility]) Sucralfate 1000 MG Oral Tablet Sucralfate 1 GM Sucralfate 1 GM 12/22/2019 12:00:00 AM EST 1.0 {tablet_on_an_empty_stomach} active Sucralfate 1 GM eCW1 ([facility]) Sucralfate 1000 MG Oral Tablet Sucralfate 1 GM Sucralfate 1 GM 12/22/2019 12:00:00 AM EST 1.0 {tablet_on_an_empty_stomach} active Sucralfate 1 GM eCW1 ([facility]) Sucralfate 1000 MG Oral Tablet Sucralfate 1 GM Sucralfate 1 GM 12/22/2019 12:00:00 AM EST 1.0 {tablet_on_an_empty_stomach} active Sucralfate 1 GM eCW1 ([facility]) Acetaminophen 325 MG / Oxycodone Hydroch loride 10 MG Oral Tablet [Percocet] Percocet 10-325 MG Percocet 10-325 MG 12/22/2019 12:00:00 AM EST 1.0 {tablet_as_needed} active Percocet 10-3 25 MG eCW1 ([facility]) Sucralfate 1000 MG Oral Tablet Sucralfate 1 GM Sucralfate 1 GM 12/22/2019 12:00:00 AM EST 1.0 {tablet_on_an_empty_stomach} active Sucralfate 1 GM eCW1 ([facility]) Sucralfate 1000 MG Oral Tablet Sucralfate 1 GM Sucralfate 1 GM 12/22/2019 12:00:00 AM EST 1.0 {tablet_on_an_empty_stomach} active Sucralfate 1 GM eCW1 ([facility]) Sucralfate 1000 MG Oral Tablet Sucralfate 1 GM Sucralfate 1 GM 12/22/2019 12:00:00 AM EST 1.0 {tablet_on_an_empty_stomach} active Sucralfate 1 GM eCW1 ([facility]) Omeprazole 40 MG Delayed Release Oral Capsule Omeprazole 40 MG 12/22/2019 12:00:00 AM EST active Omeprazo le 40 MG eCW1 ([facility]) Sucralfate 1000 MG Oral Tablet Sucralfate 1 GM Sucralfate 1 GM 12/22/2019 12:00:00 AM EST 1.0 {tablet_on_an_empty_stomach} active Sucralfate 1 GM eCW1 ([facility]) Sucralfate 1000 MG Oral Tablet Sucralfate 1 GM Sucralfate 1 GM 12/22/2019 12:00:00 AM EST 1.0 {tablet_on_an_empty_stomach} active Sucralfate 1 GM eCW1 ([facility]) Amlodipine 5 MG / valsartan 160 MG [...] {tablet_as_needed} active Percocet 10-3 25 MG eCW1 ([facility]) Acetaminophen 325 MG / Oxycodone Hydroch loride 10 MG Oral Tablet [Percocet] Percocet 10-325 MG Percocet 10-325 MG 11/24/2019 12:00:00 AM EDT 1.0 {tablet_as_needed} active Percocet 10-3 25 MG eCW1 ([facility]) Acetaminophen 325 MG / Oxycodone Hydroch loride 10 MG Oral Tablet [Percocet] Percocet 10-325 MG Percocet 10-325 MG 11/24/2019 12:00:00 AM EDT 1.0 {tablet_as_needed} active Percocet 10-3 25 MG eCW1 ([facility]) Acetaminophen 325 MG / Oxycodone Hydroch loride 10 MG Oral Tablet [Percocet] Percocet 10-325 MG Percocet 10-325 MG 11/24/2019 12:00:00 AM EDT 1.0 {tablet_as_needed} active Percocet 10-3 25 MG eCW1 ([facility]) Acetaminophen 325 MG / Oxycodone Hydroch loride 10 MG Oral Tablet [Percocet] Percocet 10-325 MG Percocet 10-325 MG 11/24/2019 12:00:00 AM EDT 1.0 {tablet_as_needed} active Percocet 10-3 25 MG eCW1 ([facility]) 10-325 mg 11/24/2019 12:00:00 AM EDT tablet [...] {tablet_as_needed} active Percocet 10-3 25 MG eCW1 ([facility]) Acetaminophen 325 MG / Oxycodone Hydroch loride 10 MG Oral Tablet [Percocet] Percocet 10-325 MG Percocet 10-325 MG 11/24/2019 12:00:00 AM EDT 1.0 {tablet_as_needed} active Percocet 10-3 25 MG eCW1 ([facility]) Acetaminophen 325 MG / Oxycodone Hydroch loride 10 MG Oral Tablet [Percocet] Percocet 10-325 MG Percocet 10-325 MG 11/24/2019 12:00:00 AM EDT 1.0 {tablet_as_needed} active Percocet 10-3 25 MG eCW1 ([facility]) Acetaminophen 325 MG / Oxycodone Hydroch loride 10 MG Oral Tablet [Percocet] Percocet 10-325 MG Percocet 10-325 MG 11/24/2019 12:00:00 AM EDT 1.0 {tablet_as_needed} active Percocet 10-3 25 MG eCW1 ([facility]) Acetaminophen 325 MG / Oxycodone Hydroch loride 10 MG Oral Tablet [Percocet] Percocet 10-325 MG Percocet 10-325 MG 11/24/2019 12:00:00 AM EDT 1.0 {tablet_as_needed} active Percocet 10-3 25 MG eCW1 ([facility]) Acetaminophen 325 MG / Oxycodone Hydroch loride 10 MG Oral Tablet [Percocet] Percocet 10-325 MG Percocet 10-325 MG 11/24/2019 12:00:00 AM EDT 1.0 {tablet_as_needed} active Percocet 10-3 25 MG eCW1 ([facility]) Acetaminophen 325 MG / Oxycodone Hydroch loride 10 MG Oral Tablet [Percocet] Percocet 10-325 MG Percocet 10-325 MG 11/24/2019 12:00:00 AM EDT 1.0 {tablet_as_needed} active Percocet 10-3 25 MG eCW1 ([facility]) Acetaminophen 325 MG / Oxycodone Hydroch loride 10 MG Oral Tablet [Percocet] Percocet 10-325 MG Percocet 10-325 MG 11/24/2019 12:00:00 AM EDT 1.0 {tablet_as_needed} active Percocet 10-3 25 MG eCW1 ([facility]) Acetaminophen 325 MG / Oxycodone Hydroch loride 10 MG Oral Tablet [Percocet] Percocet 10-325 MG Percocet 10-325 MG 11/24/2019 12:00:00 AM EDT 1.0 {tablet_as_needed} active Percocet 10-3 25 MG eCW1 ([facility]) Acetaminophen 325 MG / Oxycodone Hydroch loride 10 MG Oral Tablet [Percocet] Percocet 10-325 MG Percocet 10-325 MG 11/24/2019 12:00:00 AM EDT 1.0 {tablet_as_needed} active Percocet 10-3 25 MG eCW1 ([facility]) Acetaminophen 325 MG / Oxycodone Hydroch loride 10 MG Oral Tablet [Percocet] Percocet 10-325 MG Percocet 10-325 MG 11/24/2019 12:00:00 AM EDT 1.0 {tablet_as_needed} active Percocet 10-3 25 MG eCW1 ([facility]) Acetaminophen 325 MG / Oxycodone Hydroch loride 10 MG Oral Tablet [Percocet] Percocet 10-325 MG Percocet 10-325 MG 11/24/2019 12:00:00 AM EDT 1.0 {tablet_as_needed} active Percocet 10-3 25 MG eCW1 ([facility]) Acetaminophen 325 MG / Oxycodone Hydroch loride 10 MG Oral Tablet [Percocet] Percocet 10-325 MG Percocet 10-325 MG 11/24/2019 12:00:00 AM EDT 1.0 {tablet_as_needed} active Percocet 10-3 25 MG eCW1 ([facility]) atorvastatin 40 MG Oral Tablet ATORVASTATIN CALCIUM [...] 1.0 {tablet_as_needed} active Diazepam 2 MG eCW1 ([facility]) Diazepam 2 MG Oral Tablet Diazepam 2 MG 11/10/2019 12:00:00 AM EDT active Diazepam 2 MG eCW1 ([facility]) Diazepam 2 MG Oral Tablet Diazepam 2 MG 11/10/2019 12:00:00 AM EDT 1.0 {tablet_as_needed} active Diazepam 2 MG eCW1 ([facility]) Diazepam 2 MG Oral Tablet Diazepam 2 MG 11/10/2019 12:00:00 AM EDT 1.0 {tablet_as_needed} active Diazepam 2 MG eCW1 ([facility]) Diazepam 2 MG Oral Tablet Diazepam 2 MG 11/10/2019 12:00:00 AM EDT 1.0 {tablet_as_needed} active Diazepam 2 MG eCW1 ([facility]) Diazepam 2 MG Oral Tablet Diazepam 2 MG 11/10/2019 12:00:00 AM EDT active Diazepam 2 MG eCW1 ([facility]) Diazepam 2 MG Oral Tablet Diazepam 2 MG 11/10/2019 12:00:00 AM EDT 1.0 {tablet_as_needed} active Diazepam 2 MG eCW1 ([facility]) Diazepam 2 MG Oral Tablet Diazepam 2 MG 11/10/2019 12:00:00 AM EDT active Diazepam 2 MG eCW1 ([facility]) Diazepam 2 MG Oral Tablet Diazepam 2 MG 11/10/2019 12:00:00 AM EDT active Diazepam 2 MG eCW1 ([facility]) Diazepam 2 MG Oral Tablet Diazepam 2 MG 11/10/2019 12:00:00 AM EDT 1.0 {tablet_as_needed} active Diazepam 2 MG eCW1 ([facility]) Diazepam 2 MG Oral Tablet Diazepam 2 MG 11/10/2019 12:00:00 AM EDT 1.0 {tablet_as_needed} active Diazepam 2 MG eCW1 ([facility]) Diazepam 2 MG Oral Tablet Diazepam 2 MG 11/10/2019 12:00:00 AM EDT active Diazepam 2 MG eCW1 ([facility]) Diazepam 2 MG Oral Tablet Diazepam 2 MG 11/10/2019 12:00:00 AM EDT active Diazepam 2 MG eCW1 ([facility]) Diazepam 2 MG Oral Tablet Diazepam 2 MG 11/10/2019 12:00:00 AM EDT active Diazepam 2 MG eCW1 ([facility]) Diazepam 2 MG Oral Tablet Diazepam 2 MG 11/10/2019 12:00:00 AM EDT 1.0 {tablet_as_needed} active Diazepam 2 MG eCW1 ([facility]) Diazepam 2 MG Oral Tablet Diazepam 2 MG 11/10/2019 12:00:00 AM EDT active Diazepam 2 MG eCW1 ([facility]) Diazepam 2 MG Oral Tablet Diazepam 2 MG 11/10/2019 12:00:00 AM EDT active Diazepam 2 MG eCW1 ([facility]) Diazepam 2 MG Oral Tablet Diazepam 2 MG 11/10/2019 12:00:00 AM EDT active Diazepam 2 MG eCW1 ([facility]) Diazepam 2 MG Oral Tablet Diazepam 2 MG 11/10/2019 12:00:00 AM EDT active Diazepam 2 MG eCW1 ([facility]) Diazepam 2 MG Oral Tablet Diazepam 2 MG 11/10/2019 12:00:00 AM EDT active Diazepam 2 MG eCW1 ([facility]) Diazepam 2 MG Oral Tablet Diazepam 2 MG 11/10/2019 12:00:00 AM EDT active Diazepam 2 MG eCW1 ([facility]) Diazepam 2 MG Oral Tablet Diazepam 2 MG 11/10/2019 12:00:00 AM EDT active Diazepam 2 MG eCW1 ([facility]) Diazepam 2 MG Oral Tablet Diazepam 2 MG 11/10/2019 12:00:00 AM EDT 1.0 {tablet_as_needed} active Diazepam 2 MG eCW1 ([facility]) Diazepam 2 MG Oral Tablet Diazepam 2 MG 11/10/2019 12:00:00 AM EDT active Diazepam 2 MG eCW1 ([facility]) Diazepam 2 MG Oral Tablet Diazepam 2 MG 11/10/2019 12:00:00 AM EDT active Diazepam 2 MG eCW1 ([facility]) Diazepam 2 MG Oral Tablet Diazepam 2 MG 11/10/2019 12:00:00 AM EDT 1.0 {tablet_as_needed} active Diazepam 2 MG eCW1 ([facility]) Diazepam 2 MG Oral Tablet Diazepam 2 MG 11/10/2019 12:00:00 AM EDT 1.0 {tablet_as_needed} active Diazepam 2 MG eCW1 ([facility]) Diazepam 2 MG Oral Tablet Diazepam 2 MG 11/10/2019 12:00:00 AM EDT active Diazepam 2 MG eCW1 ([facility]) Diazepam 2 MG Oral Tablet Diazepam 2 MG 11/10/2019 12:00:00 AM EDT active Diazepam 2 MG eCW1 ([facility]) Diazepam 2 MG Oral Tablet Diazepam 2 MG 11/10/2019 12:00:00 AM EDT 1.0 {tablet_as_needed} active Diazepam 2 MG eCW1 ([facility]) Diazepam 2 MG Oral Tablet Diazepam 2 MG 11/10/2019 12:00:00 AM EDT active Diazepam 2 MG eCW1 ([facility]) Diazepam 2 MG Oral Tablet Diazepam 2 MG 11/10/2019 12:00:00 AM EDT 1.0 {tablet_as_needed} active Diazepam 2 MG eCW1 ([facility]) Diazepam 2 MG Oral Tablet Diazepam 2 MG 11/10/2019 12:00:00 AM EDT active Diazepam 2 MG eCW1 ([facility]) Diazepam 2 MG Oral Tablet Diazepam 2 MG 11/10/2019 12:00:00 AM EDT 1.0 {tablet_as_needed} active Diazepam 2 MG eCW1 ([facility]) Diazepam 2 MG Oral Tablet Diazepam 2 MG 11/10/2019 12:00:00 AM EDT 1.0 {tablet_as_needed} active Diazepam 2 MG eCW1 ([facility]) Diazepam 2 MG Oral Tablet Diazepam 2 MG 11/10/2019 12:00:00 AM EDT active Diazepam 2 MG eCW1 ([facility]) Diazepam 2 MG Oral Tablet Diazepam 2 MG 11/10/2019 12:00:00 AM EDT active Diazepam 2 MG eCW1 ([facility]) Diazepam 2 MG Oral Tablet Diazepam 2 MG 11/10/2019 12:00:00 AM EDT 1.0 {tablet_as_needed} active Diazepam 2 MG eCW1 ([facility]) Diazepam 2 MG Oral Tablet Diazepam 2 MG 11/10/2019 12:00:00 AM EDT active Diazepam 2 MG eCW1 ([facility]) Diazepam 2 MG Oral Tablet Diazepam 2 MG 11/10/2019 12:00:00 AM EDT 1.0 {tablet_as_needed} active Diazepam 2 MG eCW1 ([facility]) Diazepam 2 MG Oral Tablet Diazepam 2 MG 11/10/2019 12:00:00 AM EDT 1.0 {tablet_as_needed} active Diazepam 2 MG eCW1 ([facility]) Diazepam 2 MG Oral Tablet Diazepam 2 MG 11/10/2019 12:00:00 AM EDT 1.0 {tablet_as_needed} active Diazepam 2 MG eCW1 ([facility]) Diazepam 2 MG Oral Tablet Diazepam 2 MG 11/10/2019 12:00:00 AM EDT 1.0 {tablet_as_needed} active Diazepam 2 MG eCW1 ([facility]) Diazepam 2 MG Oral Tablet Diazepam 2 MG 11/10/2019 12:00:00 AM EDT active Diazepam 2 MG eCW1 ([facility]) Diazepam 2 MG Oral Tablet Diazepam 2 MG 11/10/2019 12:00:00 AM EDT active Diazepam 2 MG eCW1 ([facility]) Diazepam 2 MG Oral Tablet Diazepam 2 MG 11/10/2019 12:00:00 AM EDT active Diazepam 2 MG eCW1 ([facility]) Diazepam 2 MG Oral Tablet Diazepam 2 MG 11/10/2019 12:00:00 AM EDT active Diazepam 2 MG eCW1 ([facility]) Diazepam 2 MG Oral Tablet Diazepam 2 MG 11/10/2019 12:00:00 AM EDT active Diazepam 2 MG eCW1 ([facility]) Diazepam 2 MG Oral Tablet Diazepam 2 MG 11/10/2019 12:00:00 AM EDT 1.0 {tablet_as_needed} active Diazepam 2 MG eCW1 ([facility]) Diazepam 2 MG Oral Tablet Diazepam 2 MG 11/10/2019 12:00:00 AM EDT active Diazepam 2 MG eCW1 ([facility]) Diazepam 2 MG Oral Tablet Diazepam 2 MG 11/10/2019 12:00:00 AM EDT active Diazepam 2 MG eCW1 ([facility]) Diazepam 2 MG Oral Tablet Diazepam 2 MG 11/10/2019 12:00:00 AM EDT active Diazepam 2 MG eCW1 ([facility]) Diazepam 2 MG Oral Tablet Diazepam 2 MG 11/10/2019 12:00:00 AM EDT 1.0 {tablet_as_needed} active Diazepam 2 MG eCW1 ([facility]) Diazepam 2 MG Oral Tablet Diazepam 2 MG 11/10/2019 12:00:00 AM EDT active Diazepam 2 MG eCW1 ([facility]) Diazepam 2 MG Oral Tablet Diazepam 2 MG 11/10/2019 12:00:00 AM EDT active Diazepam 2 MG eCW1 ([facility]) Diazepam 2 MG Oral Tablet Diazepam 2 MG 11/10/2019 12:00:00 AM EDT 1.0 {tablet_as_needed} active Diazepam 2 MG eCW1 ([facility]) Diazepam 2 MG Oral Tablet Diazepam 2 MG 11/10/2019 12:00:00 AM EDT active Diazepam 2 MG eCW1 ([facility]) Diazepam 2 MG Oral Tablet Diazepam 2 MG 11/10/2019 12:00:00 AM EDT active Diazepam 2 MG eCW1 ([facility]) Diazepam 2 MG Oral Tablet Diazepam 2 MG 11/10/2019 12:00:00 AM EDT 1.0 {tablet_as_needed} active Diazepam 2 MG eCW1 ([facility]) Diazepam 2 MG Oral Tablet Diazepam 2 MG 11/10/2019 12:00:00 AM EDT active Diazepam 2 MG eCW1 ([facility]) Diazepam 2 MG Oral Tablet Diazepam 2 MG 11/10/2019 12:00:00 AM EDT active Diazepam 2 MG eCW1 ([facility]) Diazepam 2 MG Oral Tablet Diazepam 2 MG 11/10/2019 12:00:00 AM EDT active Diazepam 2 MG eCW1 ([facility]) Diazepam 2 MG Oral Tablet Diazepam 2 MG 11/10/2019 12:00:00 AM EDT active Diazepam 2 MG eCW1 ([facility]) Diazepam 2 MG Oral Tablet Diazepam 2 MG 11/10/2019 12:00:00 AM EDT 1.0 {tablet_as_needed} active Diazepam 2 MG eCW1 ([facility]) Diazepam 2 MG Oral Tablet Diazepam 2 MG 11/10/2019 12:00:00 AM EDT 1.0 {tablet_as_needed} active Diazepam 2 MG eCW1 ([facility]) Diazepam 2 MG Oral Tablet Diazepam 2 MG 11/10/2019 12:00:00 AM EDT active Diazepam 2 MG eCW1 ([facility]) Diazepam 2 MG Oral Tablet Diazepam 2 MG 11/10/2019 12:00:00 AM EDT active Diazepam 2 MG eCW1 ([facility]) Diazepam 2 MG Oral Tablet Diazepam 2 MG 11/10/2019 12:00:00 AM EDT active Diazepam 2 MG eCW1 ([facility]) Diazepam 2 MG Oral Tablet Diazepam 2 MG 11/10/2019 12:00:00 AM EDT active Diazepam 2 MG eCW1 ([facility]) Diazepam 2 MG Oral Tablet Diazepam 2 MG 11/10/2019 12:00:00 AM EDT active Diazepam 2 MG eCW1 ([facility]) Diazepam 2 MG Oral Tablet Diazepam 2 MG 11/10/2019 12:00:00 AM EDT active Diazepam 2 MG eCW1 ([facility]) Diazepam 2 MG Oral Tablet Diazepam 2 MG 11/10/2019 12:00:00 AM EDT 1.0 {tablet_as_needed} active Diazepam 2 MG eCW1 ([facility]) Diazepam 2 MG Oral Tablet Diazepam 2 MG 11/10/2019 12:00:00 AM EDT 1.0 {tablet_as_needed} active Diazepam 2 MG eCW1 ([facility]) Diazepam 2 MG Oral Tablet Diazepam 2 MG 11/10/2019 12:00:00 AM EDT active Diazepam 2 MG eCW1 ([facility]) Diazepam 2 MG Oral Tablet Diazepam 2 MG 11/10/2019 12:00:00 AM EDT active Diazepam 2 MG eCW1 ([facility]) Diazepam 2 MG Oral Tablet Diazepam 2 MG 11/10/2019 12:00:00 AM EDT active Diazepam 2 MG eCW1 ([facility]) Diazepam 2 MG Oral Tablet Diazepam 2 MG 11/10/2019 12:00:00 AM EDT 1.0 {tablet_as_needed} active Diazepam 2 MG eCW1 ([facility]) 15 mg 11/04/2019 12:00:00 AM EDT tablet [...] MOUT H TWICE A DAY SOLD: 11/27/2019 [facility] carvedilol 6.25 MG Oral Tablet CARVEDILOL [...] Primidone 09/22/2019 12:00:00 AM EDT active MEDENT ([facility], ) 250 mg 09/22/2019 12:00:00 [...] suspended Spiriva Respimat 2 .5 MCG/ACT eCW1 ([facility]) 28 ACTUAT tiotropium 0.0025 MG/ACTUAT Me tered Dose Inhaler [Spiriva] Spiriva Respimat 2.5 MCG/ACT Spiriva Respimat 2.5 MCG/ACT 09/04/2019 12:00:00 AM EDT 2.0 {puffs} suspended Spiriva Respimat 2 .5 MCG/ACT eCW1 ([facility]) 28 ACTUAT tiotropium 0.0025 MG/ACTUAT Me tered Dose Inhaler [Spiriva] Spiriva Respimat 2.5 MCG/ACT Spiriva Respimat 2.5 MCG/ACT 09/04/2019 12:00:00 AM EDT 2.0 {puffs} suspended Spiriva Respimat 2 .5 MCG/ACT eCW1 ([facility]) 28 ACTUAT tiotropium 0.0025 MG/ACTUAT Me tered Dose Inhaler [Spiriva] Spiriva Respimat 2.5 MCG/ACT Spiriva Respimat 2.5 MCG/ACT 09/04/2019 12:00:00 AM EDT 2.0 {puffs} active Spiriva Respimat 2.5 MCG/ACT eCW1 ([facility]) 28 ACTUAT tiotropium 0.0025 MG/ACTUAT Me tered Dose Inhaler [Spiriva] Spiriva Respimat 2.5 MCG/ACT Spiriva Respimat 2.5 MCG/ACT 09/04/2019 12:00:00 AM EDT 2.0 {puffs} suspended Spiriva Respimat 2 .5 MCG/ACT eCW1 ([facility]) 15 mg 09/04/2019 12:00:00 AM EDT tablet [...] {puffs} active Spiriva Respimat 2.5 MCG/ACT eCW1 ([facility]) 28 ACTUAT tiotropium 0.0025 MG/ACTUAT Me tered Dose Inhaler [Spiriva] Spiriva Respimat 2.5 MCG/ACT Spiriva Respimat 2.5 MCG/ACT 09/04/2019 12:00:00 AM EDT 2.0 {puffs} suspended Spiriva Respimat 2 .5 MCG/ACT eCW1 ([facility]) 28 ACTUAT tiotropium 0.0025 MG/ACTUAT Me tered Dose Inhaler [Spiriva] Spiriva Respimat 2.5 MCG/ACT Spiriva Respimat 2.5 MCG/ACT 09/04/2019 12:00:00 AM EDT 2.0 {puffs} active Spiriva Respimat 2.5 MCG/ACT eCW1 ([facility]) 28 ACTUAT tiotropium 0.0025 MG/ACTUAT Me tered Dose Inhaler [Spiriva] Spiriva Respimat 2.5 MCG/ACT Spiriva Respimat 2.5 MCG/ACT 09/04/2019 12:00:00 AM EDT 2.0 {puffs} active Spiriva Respimat 2.5 MCG/ACT eCW1 ([facility]) 28 ACTUAT tiotropium 0.0025 MG/ACTUAT Me tered Dose Inhaler [Spiriva] Spiriva Respimat 2.5 MCG/ACT Spiriva Respimat 2.5 MCG/ACT 09/04/2019 12:00:00 AM EDT 2.0 {puffs} suspended Spiriva Respimat 2 .5 MCG/ACT eCW1 ([facility]) 28 ACTUAT tiotropium 0.0025 MG/ACTUAT Me tered Dose Inhaler [Spiriva] Spiriva Respimat 2.5 MCG/ACT Spiriva Respimat 2.5 MCG/ACT 09/04/2019 12:00:00 AM EDT 2.0 {puffs} active Spiriva Respimat 2.5 MCG/ACT eCW1 ([facility]) 28 ACTUAT tiotropium 0.0025 MG/ACTUAT Me tered Dose Inhaler [Spiriva] Spiriva Respimat 2.5 MCG/ACT Spiriva Respimat 2.5 MCG/ACT 09/04/2019 12:00:00 AM EDT 2.0 {puffs} suspended Spiriva Respimat 2 .5 MCG/ACT eCW1 ([facility]) 28 ACTUAT tiotropium 0.0025 MG/ACTUAT Me tered Dose Inhaler [Spiriva] Spiriva Respimat 2.5 MCG/ACT Spiriva Respimat 2.5 MCG/ACT 09/04/2019 12:00:00 AM EDT 2.0 {puffs} active Spiriva Respimat 2.5 MCG/ACT eCW1 ([facility]) 28 ACTUAT tiotropium 0.0025 MG/ACTUAT Me tered Dose Inhaler [Spiriva] Spiriva Respimat 2.5 MCG/ACT Spiriva Respimat 2.5 MCG/ACT 09/04/2019 12:00:00 AM EDT 2.0 {puffs} suspended Spiriva Respimat 2 .5 MCG/ACT eCW1 ([facility]) 28 ACTUAT tiotropium 0.0025 MG/ACTUAT Me tered Dose Inhaler [Spiriva] Spiriva Respimat 2.5 MCG/ACT Spiriva Respimat 2.5 MCG/ACT 09/04/2019 12:00:00 AM EDT 2.0 {puffs} active Spiriva Respimat 2.5 MCG/ACT eCW1 ([facility]) 28 ACTUAT tiotropium 0.0025 MG/ACTUAT Me tered Dose Inhaler [Spiriva] Spiriva Respimat 2.5 MCG/ACT Spiriva Respimat 2.5 MCG/ACT 09/04/2019 12:00:00 AM EDT 2.0 {puffs} active Spiriva Respimat 2.5 MCG/ACT eCW1 ([facility]) 28 ACTUAT tiotropium 0.0025 MG/ACTUAT Me tered Dose Inhaler [Spiriva] Spiriva Respimat 2.5 MCG/ACT Spiriva Respimat 2.5 MCG/ACT 09/04/2019 12:00:00 AM EDT 2.0 {puffs} active Spiriva Respimat 2.5 MCG/ACT eCW1 ([facility]) 28 ACTUAT tiotropium 0.0025 MG/ACTUAT Me tered Dose Inhaler [Spiriva] Spiriva Respimat 2.5 MCG/ACT Spiriva Respimat 2.5 MCG/ACT 09/04/2019 12:00:00 AM EDT 2.0 {puffs} active Spiriva Respimat 2.5 MCG/ACT eCW1 ([facility]) 28 ACTUAT tiotropium 0.0025 MG/ACTUAT Me tered Dose Inhaler [Spiriva] Spiriva Respimat 2.5 MCG/ACT Spiriva Respimat 2.5 MCG/ACT 09/04/2019 12:00:00 AM EDT 2.0 {puffs} suspended Spiriva Respimat 2 .5 MCG/ACT eCW1 ([facility]) 28 ACTUAT tiotropium 0.0025 MG/ACTUAT Me tered Dose Inhaler [Spiriva] Spiriva Respimat 2.5 MCG/ACT Spiriva Respimat 2.5 MCG/ACT 09/04/2019 12:00:00 AM EDT 2.0 {puffs} active Spiriva Respimat 2.5 MCG/ACT eCW1 ([facility]) 28 ACTUAT tiotropium 0.0025 MG/ACTUAT Me tered Dose Inhaler [Spiriva] Spiriva Respimat 2.5 MCG/ACT Spiriva Respimat 2.5 MCG/ACT 09/04/2019 12:00:00 AM EDT 2.0 {puffs} active Spiriva Respimat 2.5 MCG/ACT eCW1 ([facility]) 28 ACTUAT tiotropium 0.0025 MG/ACTUAT Me tered Dose Inhaler [Spiriva] Spiriva Respimat 2.5 MCG/ACT Spiriva Respimat 2.5 MCG/ACT 09/04/2019 12:00:00 AM EDT 2.0 {puffs} suspended Spiriva Respimat 2 .5 MCG/ACT eCW1 ([facility]) 28 ACTUAT tiotropium 0.0025 MG/ACTUAT Me tered Dose Inhaler [Spiriva] Spiriva Respimat 2.5 MCG/ACT Spiriva Respimat 2.5 MCG/ACT 09/04/2019 12:00:00 AM EDT 2.0 {puffs} active Spiriva Respimat 2.5 MCG/ACT eCW1 ([facility]) 28 ACTUAT tiotropium 0.0025 MG/ACTUAT Me tered Dose Inhaler [Spiriva] Spiriva Respimat 2.5 MCG/ACT Spiriva Respimat 2.5 MCG/ACT 09/04/2019 12:00:00 AM EDT 2.0 {puffs} active Spiriva Respimat 2.5 MCG/ACT eCW1 ([facility]) 28 ACTUAT tiotropium 0.0025 MG/ACTUAT Me tered Dose Inhaler [Spiriva] Spiriva Respimat 2.5 MCG/ACT Spiriva Respimat 2.5 MCG/ACT 09/04/2019 12:00:00 AM EDT 2.0 {puffs} active Spiriva Respimat 2.5 MCG/ACT eCW1 ([facility]) 28 ACTUAT tiotropium 0.0025 MG/ACTUAT Me tered Dose Inhaler [Spiriva] Spiriva Respimat 2.5 MCG/ACT Spiriva Respimat 2.5 MCG/ACT 09/04/2019 12:00:00 AM EDT 2.0 {puffs} suspended Spiriva Respimat 2 .5 MCG/ACT eCW1 ([facility]) 28 ACTUAT tiotropium 0.0025 MG/ACTUAT Me tered Dose Inhaler [Spiriva] Spiriva Respimat 2.5 MCG/ACT Spiriva Respimat 2.5 MCG/ACT 09/04/2019 12:00:00 AM EDT 2.0 {puffs} active Spiriva Respimat 2.5 MCG/ACT eCW1 ([facility]) 28 ACTUAT tiotropium 0.0025 MG/ACTUAT Me tered Dose Inhaler [Spiriva] Spiriva Respimat 2.5 MCG/ACT Spiriva Respimat 2.5 MCG/ACT 09/04/2019 12:00:00 AM EDT 2.0 {puffs} suspended Spiriva Respimat 2 .5 MCG/ACT eCW1 ([facility]) 28 ACTUAT tiotropium 0.0025 MG/ACTUAT Me tered Dose Inhaler [Spiriva] Spiriva Respimat 2.5 MCG/ACT Spiriva Respimat 2.5 MCG/ACT 09/04/2019 12:00:00 AM EDT 2.0 {puffs} active Spiriva Respimat 2.5 MCG/ACT eCW1 ([facility]) 28 ACTUAT tiotropium 0.0025 MG/ACTUAT Me tered Dose Inhaler [Spiriva] Spiriva Respimat 2.5 MCG/ACT Spiriva Respimat 2.5 MCG/ACT 09/04/2019 12:00:00 AM EDT 2.0 {puffs} suspended Spiriva Respimat 2 .5 MCG/ACT eCW1 ([facility]) 28 ACTUAT tiotropium 0.0025 MG/ACTUAT Me tered Dose Inhaler [Spiriva] Spiriva Respimat 2.5 MCG/ACT Spiriva Respimat 2.5 MCG/ACT 09/04/2019 12:00:00 AM EDT 2.0 {puffs} active Spiriva Respimat 2.5 MCG/ACT eCW1 ([facility]) 28 ACTUAT tiotropium 0.0025 MG/ACTUAT Me tered Dose Inhaler [Spiriva] Spiriva Respimat 2.5 MCG/ACT Spiriva Respimat 2.5 MCG/ACT 09/04/2019 12:00:00 AM EDT 2.0 {puffs} active Spiriva Respimat 2.5 MCG/ACT eCW1 ([facility]) 28 ACTUAT tiotropium 0.0025 MG/ACTUAT Me tered Dose Inhaler [Spiriva] Spiriva Respimat 2.5 MCG/ACT Spiriva Respimat 2.5 MCG/ACT 09/04/2019 12:00:00 AM EDT 2.0 {puffs} active Spiriva Respimat 2.5 MCG/ACT eCW1 ([facility]) 28 ACTUAT tiotropium 0.0025 MG/ACTUAT Me tered Dose Inhaler [Spiriva] Spiriva Respimat 2.5 MCG/ACT Spiriva Respimat 2.5 MCG/ACT 09/04/2019 12:00:00 AM EDT 2.0 {puffs} suspended Spiriva Respimat 2 .5 MCG/ACT eCW1 ([facility]) 28 ACTUAT tiotropium 0.0025 MG/ACTUAT Me tered Dose Inhaler [Spiriva] Spiriva Respimat 2.5 MCG/ACT Spiriva Respimat 2.5 MCG/ACT 09/04/2019 12:00:00 AM EDT 2.0 {puffs} active Spiriva Respimat 2.5 MCG/ACT eCW1 ([facility]) 28 ACTUAT tiotropium 0.0025 MG/ACTUAT Me tered Dose Inhaler [Spiriva] Spiriva Respimat 2.5 MCG/ACT Spiriva Respimat 2.5 MCG/ACT 09/04/2019 12:00:00 AM EDT 2.0 {puffs} suspended Spiriva Respimat 2 .5 MCG/ACT eCW1 ([facility]) 28 ACTUAT tiotropium 0.0025 MG/ACTUAT Me tered Dose Inhaler [Spiriva] Spiriva Respimat 2.5 MCG/ACT Spiriva Respimat 2.5 MCG/ACT 09/04/2019 12:00:00 AM EDT 2.0 {puffs} suspended Spiriva Respimat 2 .5 MCG/ACT eCW1 ([facility]) 28 ACTUAT tiotropium 0.0025 MG/ACTUAT Me tered Dose Inhaler [Spiriva] Spiriva Respimat 2.5 MCG/ACT Spiriva Respimat 2.5 MCG/ACT 09/04/2019 12:00:00 AM EDT 2.0 {puffs} suspended Spiriva Respimat 2 .5 MCG/ACT eCW1 ([facility]) 28 ACTUAT tiotropium 0.0025 MG/ACTUAT Me tered Dose Inhaler [Spiriva] Spiriva Respimat 2.5 MCG/ACT Spiriva Respimat 2.5 MCG/ACT 09/04/2019 12:00:00 AM EDT 2.0 {puffs} active Spiriva Respimat 2.5 MCG/ACT eCW1 ([facility]) 28 ACTUAT tiotropium 0.0025 MG/ACTUAT Me tered Dose Inhaler [Spiriva] Spiriva Respimat 2.5 MCG/ACT Spiriva Respimat 2.5 MCG/ACT 09/04/2019 12:00:00 AM EDT 2.0 {puffs} active Spiriva Respimat 2.5 MCG/ACT eCW1 ([facility]) 28 ACTUAT tiotropium 0.0025 MG/ACTUAT Me tered Dose Inhaler [Spiriva] Spiriva Respimat 2.5 MCG/ACT Spiriva Respimat 2.5 MCG/ACT 09/04/2019 12:00:00 AM EDT 2.0 {puffs} active Spiriva Respimat 2.5 MCG/ACT eCW1 ([facility]) 28 ACTUAT tiotropium 0.0025 MG/ACTUAT Me tered Dose Inhaler [Spiriva] Spiriva Respimat 2.5 MCG/ACT Spiriva Respimat 2.5 MCG/ACT 09/04/2019 12:00:00 AM EDT 2.0 {puffs} active Spiriva Respimat 2.5 MCG/ACT eCW1 ([facility]) 28 ACTUAT tiotropium 0.0025 MG/ACTUAT Me tered Dose Inhaler [Spiriva] Spiriva Respimat 2.5 MCG/ACT Spiriva Respimat 2.5 MCG/ACT 09/04/2019 12:00:00 AM EDT 2.0 {puffs} active Spiriva Respimat 2.5 MCG/ACT eCW1 ([facility]) 28 ACTUAT tiotropium 0.0025 MG/ACTUAT Me tered Dose Inhaler [Spiriva] Spiriva Respimat 2.5 MCG/ACT Spiriva Respimat 2.5 MCG/ACT 09/04/2019 12:00:00 AM EDT 2.0 {puffs} suspended Spiriva Respimat 2 .5 MCG/ACT eCW1 ([facility]) 28 ACTUAT tiotropium 0.0025 MG/ACTUAT Me tered Dose Inhaler [Spiriva] Spiriva Respimat 2.5 MCG/ACT Spiriva Respimat 2.5 MCG/ACT 09/04/2019 12:00:00 AM EDT 2.0 {puffs} active Spiriva Respimat 2.5 MCG/ACT eCW1 ([facility]) 28 ACTUAT tiotropium 0.0025 MG/ACTUAT Me tered Dose Inhaler [Spiriva] Spiriva Respimat 2.5 MCG/ACT Spiriva Respimat 2.5 MCG/ACT 09/04/2019 12:00:00 AM EDT 2.0 {puffs} active Spiriva Respimat 2.5 MCG/ACT eCW1 ([facility]) 28 ACTUAT tiotropium 0.0025 MG/ACTUAT Me tered Dose Inhaler [Spiriva] Spiriva Respimat 2.5 MCG/ACT Spiriva Respimat 2.5 MCG/ACT 09/04/2019 12:00:00 AM EDT 2.0 {puffs} active Spiriva Respimat 2.5 MCG/ACT eCW1 ([facility]) 28 ACTUAT tiotropium 0.0025 MG/ACTUAT Me tered Dose Inhaler [Spiriva] Spiriva Respimat 2.5 MCG/ACT Spiriva Respimat 2.5 MCG/ACT 09/04/2019 12:00:00 AM EDT 2.0 {puffs} suspended Spiriva Respimat 2 .5 MCG/ACT eCW1 ([facility]) 28 ACTUAT tiotropium 0.0025 MG/ACTUAT Me tered Dose Inhaler [Spiriva] Spiriva Respimat 2.5 MCG/ACT Spiriva Respimat 2.5 MCG/ACT 09/04/2019 12:00:00 AM EDT 2.0 {puffs} suspended Spiriva Respimat 2 .5 MCG/ACT eCW1 ([facility]) 28 ACTUAT tiotropium 0.0025 MG/ACTUAT Me tered Dose Inhaler [Spiriva] Spiriva Respimat 2.5 MCG/ACT Spiriva Respimat 2.5 MCG/ACT 09/04/2019 12:00:00 AM EDT 2.0 {puffs} active Spiriva Respimat 2.5 MCG/ACT eCW1 ([facility]) 28 ACTUAT tiotropium 0.0025 MG/ACTUAT Me tered Dose Inhaler [Spiriva] Spiriva Respimat 2.5 MCG/ACT Spiriva Respimat 2.5 MCG/ACT 09/04/2019 12:00:00 AM EDT 2.0 {puffs} active Spiriva Respimat 2.5 MCG/ACT eCW1 ([facility]) 28 ACTUAT tiotropium 0.0025 MG/ACTUAT Me tered Dose Inhaler [Spiriva] Spiriva Respimat 2.5 MCG/ACT Spiriva Respimat 2.5 MCG/ACT 09/04/2019 12:00:00 AM EDT 2.0 {puffs} suspended Spiriva Respimat 2 .5 MCG/ACT eCW1 ([facility]) 28 ACTUAT tiotropium 0.0025 MG/ACTUAT Me tered Dose Inhaler [Spiriva] Spiriva Respimat 2.5 MCG/ACT Spiriva Respimat 2.5 MCG/ACT 09/04/2019 12:00:00 AM EDT 2.0 {puffs} active Spiriva Respimat 2.5 MCG/ACT eCW1 ([facility]) 28 ACTUAT tiotropium 0.0025 MG/ACTUAT Me tered Dose Inhaler [Spiriva] Spiriva Respimat 2.5 MCG/ACT Spiriva Respimat 2.5 MCG/ACT 09/04/2019 12:00:00 AM EDT 2.0 {puffs} active Spiriva Respimat 2.5 MCG/ACT eCW1 ([facility]) 28 ACTUAT tiotropium 0.0025 MG/ACTUAT Me tered Dose Inhaler [Spiriva] Spiriva Respimat 2.5 MCG/ACT Spiriva Respimat 2.5 MCG/ACT 09/04/2019 12:00:00 AM EDT 2.0 {puffs} suspended Spiriva Respimat 2 .5 MCG/ACT eCW1 ([facility]) Morphine Sulfate 15 MG Extended Release Oral Tablet Mo rphine Sulfate ER 15 MG Morphine Sulfate ER 15 MG 09/03/2019 12:00:00 AM EDT active Morphine Sulfate ER 15 MG eCW1 ([facility]) Morphine Sulfate 15 MG Extended Release Oral Tablet Mo rphine Sulfate ER 15 MG Morphine Sulfate ER 15 MG 09/03/2019 12:00:00 AM EDT active Morphine Sulfate ER 15 MG eCW1 ([facility]) Morphine Sulfate 15 MG Extended Release Oral Tablet Mo rphine Sulfate ER 15 MG Morphine Sulfate ER 15 MG 09/03/2019 12:00:00 AM EDT active Morphine Sulfate ER 15 MG eCW1 ([facility]) Morphine Sulfate 15 MG Extended Release Oral Tablet Mo rphine Sulfate ER 15 MG Morphine Sulfate ER 15 MG 09/03/2019 12:00:00 AM EDT active Morphine Sulfate ER 15 MG eCW1 ([facility]) Morphine Sulfate 15 MG Extended Release Oral Tablet Mo rphine Sulfate ER 15 MG Morphine Sulfate ER 15 MG 09/03/2019 12:00:00 AM EDT active Morphine Sulfate ER 15 MG eCW1 ([facility]) Morphine Sulfate 15 MG Extended Release Oral Tablet Mo rphine Sulfate ER 15 MG Morphine Sulfate ER 15 MG 09/03/2019 12:00:00 AM EDT active Morphine Sulfate ER 15 MG eCW1 ([facility]) Morphine Sulfate 15 MG Extended Release Oral Tablet Mo rphine Sulfate ER 15 MG Morphine Sulfate ER 15 MG 09/03/2019 12:00:00 AM EDT active Morphine Sulfate ER 15 MG eCW1 ([facility]) Morphine Sulfate 15 MG Extended Release Oral Tablet Mo rphine Sulfate ER 15 MG Morphine Sulfate ER 15 MG 09/03/2019 12:00:00 AM EDT active Morphine Sulfate ER 15 MG eCW1 ([facility]) Morphine Sulfate 15 MG Extended Release Oral Tablet Mo rphine Sulfate ER 15 MG Morphine Sulfate ER 15 MG 09/03/2019 12:00:00 AM EDT active Morphine Sulfate ER 15 MG eCW1 ([facility]) Morphine Sulfate 15 MG Extended Release Oral Tablet Mo rphine Sulfate ER 15 MG Morphine Sulfate ER 15 MG 09/03/2019 12:00:00 AM EDT active Morphine Sulfate ER 15 MG eCW1 ([facility]) 50 mg 08/27/2019 12:00:00 AM EDT tablet [...] Primidone 08/26/2019 12:00:00 AM EDT completed MEDENT ([facility], ) 200 ACTUAT Albuterol 0.09 MG/ACTUAT Mete red Dose Inhaler [Ventolin] Ventolin HFA 108 (90 Base) MCG/ACT Ventolin HFA 108 (90 Base) MCG/ACT 08/25/2019 12:00:00 AM EDT 1.0 {puff_as_needed} suspended Ventolin HFA 108 (90 Base) MCG/ACT eCW1 ([facility]) 200 ACTUAT Albuterol 0.09 MG/ACTUAT Mete red Dose Inhaler [Ventolin] Ventolin HFA 108 (90 Base) MCG/ACT Ventolin HFA 108 (90 Base) MCG/ACT 08/25/2019 12:00:00 AM EDT 1.0 {puff_as_needed} suspended Ventolin HFA 108 (90 Base) MCG/ACT eCW1 ([facility]) 200 ACTUAT Albuterol 0.09 MG/ACTUAT Mete red Dose Inhaler [Ventolin] Ventolin HFA 108 (90 Base) MCG/ACT Ventolin HFA 108 (90 Base) MCG/ACT 08/25/2019 12:00:00 AM EDT 1.0 {puff_as_needed} suspended Ventolin HFA 108 (90 Base) MCG/ACT eCW1 ([facility]) 200 ACTUAT Albuterol 0.09 MG/ACTUAT Mete red Dose Inhaler [Ventolin] Ventolin HFA 108 (90 Base) MCG/ACT Ventolin HFA 108 (90 Base) MCG/ACT 08/25/2019 12:00:00 AM EDT 1.0 {puff_as_needed} suspended Ventolin HFA 108 (90 Base) MCG/ACT eCW1 ([facility]) 200 ACTUAT Albuterol 0.09 MG/ACTUAT Mete red Dose Inhaler [Ventolin] Ventolin HFA 108 (90 Base) MCG/ACT Ventolin HFA 108 (90 Base) MCG/ACT 08/25/2019 12:00:00 AM EDT 1.0 {puff_as_needed} suspended Ventolin HFA 108 (90 Base) MCG/ACT eCW1 ([facility]) 200 ACTUAT Albuterol 0.09 MG/ACTUAT Mete red Dose Inhaler [Ventolin] Ventolin HFA 108 (90 Base) MCG/ACT Ventolin HFA 108 (90 Base) MCG/ACT 08/25/2019 12:00:00 AM EDT 1.0 {puff_as_needed} active Jovani tolin HFA 108 (90 Base) MCG/ACT eCW1 ([facility]) 200 ACTUAT Albuterol 0.09 MG/ACTUAT Mete red Dose Inhaler [Ventolin] Ventolin HFA 108 (90 Base) MCG/ACT Ventolin HFA 108 (90 Base) MCG/ACT 08/25/2019 12:00:00 AM EDT 1.0 {puff_as_needed} suspended Ventolin HFA 108 (90 Base) MCG/ACT eCW1 ([facility]) tiotropium 0.018 MG/ACTUAT Inhalant Powder [Spiriva] S piriva HandiHaler 18 MCG Spiriva HandiHaler 18 MCG 08/25/2019 12:00:00 AM EDT active Spiriva HandiHaler 18 MCG eCW1 ([facility]) 200 ACTUAT Albuterol 0.09 MG/ACTUAT Mete red Dose Inhaler [Ventolin] Ventolin HFA 108 (90 Base) MCG/ACT Ventolin HFA 108 (90 Base) MCG/ACT 08/25/2019 12:00:00 AM EDT 1.0 {puff_as_needed} suspended Ventolin HFA 108 (90 Base) MCG/ACT eCW1 ([facility]) tiotropium 0.018 MG/ACTUAT Inhalant Powder [Spiriva] S piriva HandiHaler 18 MCG Spiriva HandiHaler 18 MCG 08/25/2019 12:00:00 AM EDT active Spiriva HandiHaler 18 MCG eCW1 ([facility]) 200 ACTUAT Albuterol 0.09 MG/ACTUAT Mete red Dose Inhaler [Ventolin] Ventolin HFA 108 (90 Base) MCG/ACT Ventolin HFA 108 (90 Base) MCG/ACT 08/25/2019 12:00:00 AM EDT 1.0 {puff_as_needed} suspended Ventolin HFA 108 (90 Base) MCG/ACT eCW1 ([facility]) 200 ACTUAT Albuterol 0.09 MG/ACTUAT Mete red Dose Inhaler [Ventolin] Ventolin HFA 108 (90 Base) MCG/ACT Ventolin HFA 108 (90 Base) MCG/ACT 08/25/2019 12:00:00 AM EDT 1.0 {puff_as_needed} active Jovani tolin HFA 108 (90 Base) MCG/ACT eCW1 ([facility]) 200 ACTUAT Albuterol 0.09 MG/ACTUAT Mete red Dose Inhaler [Ventolin] Ventolin HFA 108 (90 Base) MCG/ACT Ventolin HFA 108 (90 Base) MCG/ACT 08/25/2019 12:00:00 AM EDT 1.0 {puff_as_needed} suspended Ventolin HFA 108 (90 Base) MCG/ACT eCW1 ([facility]) 200 ACTUAT Albuterol 0.09 MG/ACTUAT Mete red Dose Inhaler [Ventolin] Ventolin HFA 108 (90 Base) MCG/ACT Ventolin HFA 108 (90 Base) MCG/ACT 08/25/2019 12:00:00 AM EDT 1.0 {puff_as_needed} suspended Ventolin HFA 108 (90 Base) MCG/ACT eCW1 ([facility]) 200 ACTUAT Albuterol 0.09 MG/ACTUAT Mete red Dose Inhaler [Ventolin] Ventolin HFA 108 (90 Base) MCG/ACT Ventolin HFA 108 (90 Base) MCG/ACT 08/25/2019 12:00:00 AM EDT 1.0 {puff_as_needed} active Jovani tolin HFA 108 (90 Base) MCG/ACT eCW1 ([facility]) tiotropium 0.018 MG/ACTUAT Inhalant Powder [Spiriva] S piriva HandiHaler 18 MCG Spiriva HandiHaler 18 MCG 08/25/2019 12:00:00 AM EDT active Spiriva HandiHaler 18 MCG eCW1 ([facility]) 200 ACTUAT Albuterol 0.09 MG/ACTUAT Mete red Dose Inhaler [Ventolin] Ventolin HFA 108 (90 Base) MCG/ACT Ventolin HFA 108 (90 Base) MCG/ACT 08/25/2019 12:00:00 AM EDT 1.0 {puff_as_needed} suspended Ventolin HFA 108 (90 Base) MCG/ACT eCW1 ([facility]) 200 ACTUAT Albuterol 0.09 MG/ACTUAT Mete red Dose Inhaler [Ventolin] Ventolin HFA 108 (90 Base) MCG/ACT Ventolin HFA 108 (90 Base) MCG/ACT 08/25/2019 12:00:00 AM EDT 1.0 {puff_as_needed} suspended Ventolin HFA 108 (90 Base) MCG/ACT eCW1 ([facility]) 200 ACTUAT Albuterol 0.09 MG/ACTUAT Mete red Dose Inhaler [Ventolin] Ventolin HFA 108 (90 Base) MCG/ACT Ventolin HFA 108 (90 Base) MCG/ACT 08/25/2019 12:00:00 AM EDT 1.0 {puff_as_needed} suspended Ventolin HFA 108 (90 Base) MCG/ACT eCW1 ([facility]) 200 ACTUAT Albuterol 0.09 MG/ACTUAT Mete red Dose Inhaler [Ventolin] Ventolin HFA 108 (90 Base) MCG/ACT Ventolin HFA 108 (90 Base) MCG/ACT 08/25/2019 12:00:00 AM EDT 1.0 {puff_as_needed} active Jovani tolin HFA 108 (90 Base) MCG/ACT eCW1 ([facility]) 200 ACTUAT Albuterol 0.09 MG/ACTUAT Mete red Dose Inhaler [Ventolin] Ventolin HFA 108 (90 Base) MCG/ACT Ventolin HFA 108 (90 Base) MCG/ACT 08/25/2019 12:00:00 AM EDT 1.0 {puff_as_needed} suspended Ventolin HFA 108 (90 Base) MCG/ACT eCW1 ([facility]) tiotropium 0.018 MG/ACTUAT Inhalant Powder [Spiriva] S piriva HandiHaler 18 MCG Spiriva HandiHaler 18 MCG 08/25/2019 12:00:00 AM EDT active Spiriva HandiHaler 18 MCG eCW1 ([facility]) 200 ACTUAT Albuterol 0.09 MG/ACTUAT Mete red Dose Inhaler [Ventolin] Ventolin HFA 108 (90 Base) MCG/ACT Ventolin HFA 108 (90 Base) MCG/ACT 08/25/2019 12:00:00 AM EDT 1.0 {puff_as_needed} suspended Ventolin HFA 108 (90 Base) MCG/ACT eCW1 ([facility]) 200 ACTUAT Albuterol 0.09 MG/ACTUAT Mete red Dose Inhaler [Ventolin] Ventolin HFA 108 (90 Base) MCG/ACT Ventolin HFA 108 (90 Base) MCG/ACT 08/25/2019 12:00:00 AM EDT 1.0 {puff_as_needed} suspended Ventolin HFA 108 (90 Base) MCG/ACT eCW1 ([facility]) 200 ACTUAT Albuterol 0.09 MG/ACTUAT Mete red Dose Inhaler [Ventolin] Ventolin HFA 108 (90 Base) MCG/ACT Ventolin HFA 108 (90 Base) MCG/ACT 08/25/2019 12:00:00 AM EDT 1.0 {puff_as_needed} suspended Ventolin HFA 108 (90 Base) MCG/ACT eCW1 ([facility]) tiotropium 0.018 MG/ACTUAT Inhalant Powder [Spiriva] S piriva HandiHaler 18 MCG Spiriva HandiHaler 18 MCG 08/25/2019 12:00:00 AM EDT active Spiriva HandiHaler 18 MCG eCW1 ([facility]) 200 ACTUAT Albuterol 0.09 MG/ACTUAT Mete red Dose Inhaler [Ventolin] Ventolin HFA 108 (90 Base) MCG/ACT Ventolin HFA 108 (90 Base) MCG/ACT 08/25/2019 12:00:00 AM EDT 1.0 {puff_as_needed} suspended Ventolin HFA 108 (90 Base) MCG/ACT eCW1 ([facility]) 200 ACTUAT Albuterol 0.09 MG/ACTUAT Mete red Dose Inhaler [Ventolin] Ventolin HFA 108 (90 Base) MCG/ACT Ventolin HFA 108 (90 Base) MCG/ACT 08/25/2019 12:00:00 AM EDT 1.0 {puff_as_needed} active Jovani tolin HFA 108 (90 Base) MCG/ACT eCW1 ([facility]) 200 ACTUAT Albuterol 0.09 MG/ACTUAT Mete red Dose Inhaler [Ventolin] Ventolin HFA 108 (90 Base) MCG/ACT Ventolin HFA 108 (90 Base) MCG/ACT 08/25/2019 12:00:00 AM EDT 1.0 {puff_as_needed} suspended Ventolin HFA 108 (90 Base) MCG/ACT eCW1 ([facility]) tiotropium 0.018 MG/ACTUAT Inhalant Powder [Spiriva] S piriva HandiHaler 18 MCG Spiriva HandiHaler 18 MCG 08/25/2019 12:00:00 AM EDT active Spiriva HandiHaler 18 MCG eCW1 ([facility]) tiotropium 0.018 MG/ACTUAT Inhalant Powder [Spiriva] S piriva HandiHaler 18 MCG Spiriva HandiHaler 18 MCG 08/25/2019 12:00:00 AM EDT active Spiriva HandiHaler 18 MCG eCW1 ([facility]) 200 ACTUAT Albuterol 0.09 MG/ACTUAT Mete red Dose Inhaler [Ventolin] Ventolin HFA 108 (90 Base) MCG/ACT Ventolin HFA 108 (90 Base) MCG/ACT 08/25/2019 12:00:00 AM EDT 1.0 {puff_as_needed} active Jovani tolin HFA 108 (90 Base) MCG/ACT eCW1 ([facility]) tiotropium 0.018 MG/ACTUAT Inhalant Powder [Spiriva] S piriva HandiHaler 18 MCG Spiriva HandiHaler 18 MCG 08/25/2019 12:00:00 AM EDT active Spiriva HandiHaler 18 MCG eCW1 ([facility]) 200 ACTUAT Albuterol 0.09 MG/ACTUAT Mete red Dose Inhaler [Ventolin] Ventolin HFA 108 (90 Base) MCG/ACT Ventolin HFA 108 (90 Base) MCG/ACT 08/25/2019 12:00:00 AM EDT 1.0 {puff_as_needed} active Jovani tolin HFA 108 (90 Base) MCG/ACT eCW1 ([facility]) 200 ACTUAT Albuterol 0.09 MG/ACTUAT Mete red Dose Inhaler [Ventolin] Ventolin HFA 108 (90 Base) MCG/ACT Ventolin HFA 108 (90 Base) MCG/ACT 08/25/2019 12:00:00 AM EDT 1.0 {puff_as_needed} suspended Ventolin HFA 108 (90 Base) MCG/ACT eCW1 ([facility]) 200 ACTUAT Albuterol 0.09 MG/ACTUAT Mete red Dose Inhaler [Ventolin] Ventolin HFA 108 (90 Base) MCG/ACT Ventolin HFA 108 (90 Base) MCG/ACT 08/25/2019 12:00:00 AM EDT 1.0 {puff_as_needed} suspended Ventolin HFA 108 (90 Base) MCG/ACT eCW1 ([facility]) 200 ACTUAT Albuterol 0.09 MG/ACTUAT Mete red Dose Inhaler [Ventolin] Ventolin HFA 108 (90 Base) MCG/ACT Ventolin HFA 108 (90 Base) MCG/ACT 08/25/2019 12:00:00 AM EDT 1.0 {puff_as_needed} active Jovani tolin HFA 108 (90 Base) MCG/ACT eCW1 ([facility]) 10-325 mg 08/15/2019 12:00:00 AM EDT tablet [...] {tablet_as_needed} suspended Percocet 10 -325 MG eCW1 ([facility]) Acetaminophen 325 MG / Oxycodone Hydroch loride 10 MG Oral Tablet [Percocet] Percocet 10-325 MG Percocet 10-325 MG 08/07/2019 12:00:00 AM EDT 1.0 {tablet_as_needed} active Percocet 10-3 25 MG eCW1 ([facility]) Acetaminophen 325 MG / Oxycodone Hydroch loride 10 MG Oral Tablet [Percocet] Percocet 10-325 MG Percocet 10-325 MG 08/07/2019 12:00:00 AM EDT 1.0 {tablet_as_needed} suspended Percocet 10 -325 MG eCW1 ([facility]) Acetaminophen 325 MG / Oxycodone Hydroch loride 10 MG Oral Tablet [Percocet] Percocet 10-325 MG Percocet 10-325 MG 08/07/2019 12:00:00 AM EDT 1.0 {tablet_as_needed} suspended Percocet 10 -325 MG eCW1 ([facility]) Acetaminophen 325 MG / Oxycodone Hydroch loride 10 MG Oral Tablet [Percocet] Percocet 10-325 MG Percocet 10-325 MG 08/07/2019 12:00:00 AM EDT 1.0 {tablet_as_needed} active Percocet 10-3 25 MG eCW1 ([facility]) Acetaminophen 325 MG / Oxycodone Hydroch loride 10 MG Oral Tablet [Percocet] Percocet 10-325 MG Percocet 10-325 MG 08/07/2019 12:00:00 AM EDT 1.0 {tablet_as_needed} active Percocet 10-3 25 MG eCW1 ([facility]) Acetaminophen 325 MG / Oxycodone Hydroch loride 10 MG Oral Tablet [Percocet] Percocet 10-325 MG Percocet 10-325 MG 08/07/2019 12:00:00 AM EDT 1.0 {tablet_as_needed} active Percocet 10-3 25 MG eCW1 ([facility]) Acetaminophen 325 MG / Oxycodone Hydroch loride 10 MG Oral Tablet [Percocet] Percocet 10-325 MG Percocet 10-325 MG 08/07/2019 12:00:00 AM EDT 1.0 {tablet_as_needed} suspended Percocet 10 -325 MG eCW1 ([facility]) Acetaminophen 325 MG / Oxycodone Hydroch loride 10 MG Oral Tablet [Percocet] Percocet 10-325 MG Percocet 10-325 MG 08/07/2019 12:00:00 AM EDT 1.0 {tablet_as_needed} active Percocet 10-3 25 MG eCW1 ([facility]) Acetaminophen 325 MG / Oxycodone Hydroch loride 10 MG Oral Tablet [Percocet] Percocet 10-325 MG Percocet 10-325 MG 08/07/2019 12:00:00 AM EDT 1.0 {tablet_as_needed} suspended Percocet 10 -325 MG eCW1 ([facility]) Acetaminophen 325 MG / Oxycodone Hydroch loride 10 MG Oral Tablet [Percocet] Percocet 10-325 MG Percocet 10-325 MG 08/07/2019 12:00:00 AM EDT 1.0 {tablet_as_needed} suspended Percocet 10 -325 MG eCW1 ([facility]) Acetaminophen 325 MG / Oxycodone Hydroch loride 10 MG Oral Tablet [Percocet] Percocet 10-325 MG Percocet 10-325 MG 08/07/2019 12:00:00 AM EDT 1.0 {tablet_as_needed} active Percocet 10-3 25 MG eCW1 ([facility]) Acetaminophen 325 MG / Oxycodone Hydroch loride 10 MG Oral Tablet [Percocet] Percocet 10-325 MG Percocet 10-325 MG 08/07/2019 12:00:00 AM EDT 1.0 {tablet_as_needed} active Percocet 10-3 25 MG eCW1 ([facility]) Acetaminophen 325 MG / Oxycodone Hydroch loride 10 MG Oral Tablet [Percocet] Percocet 10-325 MG Percocet 10-325 MG 08/07/2019 12:00:00 AM EDT 1.0 {tablet_as_needed} suspended Percocet 10 -325 MG eCW1 ([facility]) Acetaminophen 325 MG / Oxycodone Hydroch loride 10 MG Oral Tablet [Percocet] Percocet 10-325 MG Percocet 10-325 MG 08/07/2019 12:00:00 AM EDT 1.0 {tablet_as_needed} active Percocet 10-3 25 MG eCW1 ([facility]) Acetaminophen 325 MG / Oxycodone Hydroch loride 10 MG Oral Tablet [Percocet] Percocet 10-325 MG Percocet 10-325 MG 08/07/2019 12:00:00 AM EDT 1.0 {tablet_as_needed} suspended Percocet 10 -325 MG eCW1 ([facility]) Acetaminophen 325 MG / Oxycodone Hydroch loride 10 MG Oral Tablet [Percocet] Percocet 10-325 MG Percocet 10-325 MG 08/07/2019 12:00:00 AM EDT 1.0 {tablet_as_needed} active Percocet 10-3 25 MG eCW1 ([facility]) Acetaminophen 325 MG / Oxycodone Hydroch loride 10 MG Oral Tablet [Percocet] Percocet 10-325 MG Percocet 10-325 MG 08/07/2019 12:00:00 AM EDT 1.0 {tablet_as_needed} suspended Percocet 10 -325 MG eCW1 ([facility]) Acetaminophen 325 MG / Oxycodone Hydroch loride 10 MG Oral Tablet [Percocet] Percocet 10-325 MG Percocet 10-325 MG 08/07/2019 12:00:00 AM EDT 1.0 {tablet_as_needed} suspended Percocet 10 -325 MG eCW1 ([facility]) Acetaminophen 325 MG / Oxycodone Hydroch loride 10 MG Oral Tablet [Percocet] Percocet 10-325 MG Percocet 10-325 MG 08/07/2019 12:00:00 AM EDT 1.0 {tablet_as_needed} active Percocet 10-3 25 MG eCW1 ([facility]) Acetaminophen 325 MG / Oxycodone Hydroch loride 10 MG Oral Tablet [Percocet] Percocet 10-325 MG Percocet 10-325 MG 08/07/2019 12:00:00 AM EDT 1.0 {tablet_as_needed} suspended Percocet 10 -325 MG eCW1 ([facility]) Acetaminophen 325 MG / Oxycodone Hydroch loride 10 MG Oral Tablet [Percocet] Percocet 10-325 MG Percocet 10-325 MG 08/07/2019 12:00:00 AM EDT 1.0 {tablet_as_needed} suspended Percocet 10 -325 MG eCW1 ([facility]) Acetaminophen 325 MG / Oxycodone Hydroch loride 10 MG Oral Tablet [Percocet] Percocet 10-325 MG Percocet 10-325 MG 08/07/2019 12:00:00 AM EDT 1.0 {tablet_as_needed} active Percocet 10-3 25 MG eCW1 ([facility]) Acetaminophen 325 MG / Oxycodone Hydroch loride 10 MG Oral Tablet [Percocet] Percocet 10-325 MG Percocet 10-325 MG 08/07/2019 12:00:00 AM EDT 1.0 {tablet_as_needed} active Percocet 10-3 25 MG eCW1 ([facility]) Acetaminophen 325 MG / Oxycodone Hydroch loride 10 MG Oral Tablet [Percocet] Percocet 10-325 MG Percocet 10-325 MG 08/07/2019 12:00:00 AM EDT 1.0 {tablet_as_needed} active Percocet 10-3 25 MG eCW1 ([facility]) Acetaminophen 325 MG / Oxycodone Hydroch loride 10 MG Oral Tablet [Percocet] Percocet 10-325 MG Percocet 10-325 MG 08/07/2019 12:00:00 AM EDT 1.0 {tablet_as_needed} active Percocet 10-3 25 MG eCW1 ([facility]) Acetaminophen 325 MG / Oxycodone Hydroch loride 10 MG Oral Tablet [Percocet] Percocet 10-325 MG Percocet 10-325 MG 08/07/2019 12:00:00 AM EDT 1.0 {tablet_as_needed} active Percocet 10-3 25 MG eCW1 ([facility]) Acetaminophen 325 MG / Oxycodone Hydroch loride 10 MG Oral Tablet [Percocet] Percocet 10-325 MG Percocet 10-325 MG 08/07/2019 12:00:00 AM EDT 1.0 {tablet_as_needed} active Percocet 10-3 25 MG eCW1 ([facility]) Acetaminophen 325 MG / Oxycodone Hydroch loride 10 MG Oral Tablet [Percocet] Percocet 10-325 MG Percocet 10-325 MG 08/07/2019 12:00:00 AM EDT 1.0 {tablet_as_needed} active Percocet 10-3 25 MG eCW1 ([facility]) 15 mg 08/06/2019 12:00:00 AM EDT tablet [...] MOUTH EVERY MORNING WITH FOOD SOLD: 08/05/2019 [facility] Propranolol Hydrochloride 10 MG Oral Tablet Propranolo l HCl 10 MG Propranolol HCl 10 MG 08/04/2019 12:00:00 AM EDT 1.0 {tablet} ac tive Propranolol HCl 10 MG eCW1 ([facility]) Chlorthalidone 25 MG Oral Tablet Chlorthalidone 25 MG 2019 12:00:00 AM EDT 1.0 {tablet_in_the_morning_with_food} active Chlorthalidone 25 MG eCW1 ([facility]) 10 mg 08/04/2019 12:00:00 AM EDT tablet 60 TAKE ONE TABLET BY MOUTH TWICE A DAY TAKE ONE TABLET BY MOUTH TWICE A DAY SOLD: 08/05/2019 [facility] Morphine Sulfate 15 MG Extended Release Oral Tablet Mo rphine Sulfate ER 15 MG Morphine Sulfate ER 15 MG 07/28/2019 12:00:00 AM EDT active Morphine Sulfate ER 15 MG eCW1 ([facility]) Morphine Sulfate 15 MG Extended Release Oral Tablet Mo rphine Sulfate ER 15 MG Morphine Sulfate ER 15 MG 07/28/2019 12:00:00 AM EDT active Morphine Sulfate ER 15 MG eCW1 ([facility]) Morphine Sulfate 15 MG Extended Release Oral Tablet Mo rphine Sulfate ER 15 MG Morphine Sulfate ER 15 MG 07/28/2019 12:00:00 AM EDT active Morphine Sulfate ER 15 MG eCW1 ([facility]) Morphine Sulfate 15 MG Extended Release Oral Tablet Mo rphine Sulfate ER 15 MG Morphine Sulfate ER 15 MG 07/28/2019 12:00:00 AM EDT active Morphine Sulfate ER 15 MG eCW1 ([facility]) Morphine Sulfate 15 MG Extended Release Oral Tablet Mo rphine Sulfate ER 15 MG Morphine Sulfate ER 15 MG 07/28/2019 12:00:00 AM EDT active Morphine Sulfate ER 15 MG eCW1 ([facility]) 300 mg 07/28/2019 12:00:00 AM EDT capsule [...] active Morphine Sulfate ER 15 MG eCW1 ([facility]) Morphine Sulfate 15 MG Extended Release Oral Tablet Mo rphine Sulfate ER 15 MG Morphine Sulfate ER 15 MG 07/28/2019 12:00:00 AM EDT active Morphine Sulfate ER 15 MG eCW1 ([facility]) 300 mg 07/28/2019 12:00:00 AM EDT capsule [...] active Morphine Sulfate ER 15 MG eCW1 ([facility]) Morphine Sulfate 15 MG Extended Release Oral Tablet Mo rphine Sulfate ER 15 MG Morphine Sulfate ER 15 MG 07/28/2019 12:00:00 AM EDT active Morphine Sulfate ER 15 MG eCW1 ([facility]) Morphine Sulfate 15 MG Extended Release Oral Tablet Mo rphine Sulfate ER 15 MG Morphine Sulfate ER 15 MG 07/28/2019 12:00:00 AM EDT active Morphine Sulfate ER 15 MG eCW1 ([facility]) 10-325 mg 07/17/2019 12:00:00 AM EDT tablet [...] AM EDT active 1 tablet as needed [facility] ([facility]) Amitriptyline Hydrochloride 25 MG Oral Tablet AMITRIPTYLINE [...] active Morphine Sulfate ER 15 MG eCW1 ([facility]) Morphine Sulfate 15 MG Extended Release Oral Tablet Mo rphine Sulfate ER 15 MG Morphine Sulfate ER 15 MG 07/07/2019 12:00:00 AM EDT active Morphine Sulfate ER 15 MG eCW1 ([facility]) Morphine Sulfate 15 MG Extended Release Oral Tablet Mo rphine Sulfate ER 15 MG Morphine Sulfate ER 15 MG 07/07/2019 12:00:00 AM EDT active Morphine Sulfate ER 15 MG eCW1 ([facility]) Morphine Sulfate 15 MG Extended Release Oral Tablet Mo rphine Sulfate ER 15 MG Morphine Sulfate ER 15 MG 07/07/2019 12:00:00 AM EDT active 1 to 2 as directed eCW1 ([facility]) 15 mg 07/07/2019 12:00:00 AM EDT tablet [...] {tablet_as_needed} active Percocet 10-3 25 MG eCW1 ([facility]) Acetaminophen 325 MG / Oxycodone Hydroch loride 10 MG Oral Tablet [Percocet] Percocet 10-325 MG Percocet 10-325 MG 06/17/2019 12:00:00 AM EDT 1.0 {tablet_as_needed} active Percocet 10-3 25 MG eCW1 ([facility]) Acetaminophen 325 MG / Oxycodone Hydroch loride 10 MG Oral Tablet [Percocet] Percocet 10-325 MG Percocet 10-325 MG 06/17/2019 12:00:00 AM EDT 1.0 {tablet_as_needed} active Percocet 10-3 25 MG eCW1 ([facility]) Acetaminophen 325 MG / Oxycodone Hydroch loride 10 MG Oral Tablet [Percocet] Percocet 10-325 MG Percocet 10-325 MG 06/17/2019 12:00:00 AM EDT 1.0 {tablet_as_needed} active Percocet 10-3 25 MG eCW1 ([facility]) Acetaminophen 325 MG / Oxycodone Hydroch loride 10 MG Oral Tablet [Percocet] Percocet 10-325 MG Percocet 10-325 MG 06/17/2019 12:00:00 AM EDT active 1 tablet as needed eCW1 ([facility]) Acetaminophen 325 MG / Oxycodone Hydroch loride 10 MG Oral Tablet [Percocet] Percocet 10-325 MG Percocet 10-325 MG 06/17/2019 12:00:00 AM EDT 1.0 {tablet_as_needed} active Percocet 10-3 25 MG eCW1 ([facility]) Acetaminophen 325 MG / Oxycodone Hydroch loride 10 MG Oral Tablet [Percocet] Percocet 10-325 MG Percocet 10-325 MG 06/17/2019 12:00:00 AM EDT 1.0 {tablet_as_needed} active Percocet 10-3 25 MG eCW1 ([facility]) Acetaminophen 325 MG / Oxycodone Hydroch loride 10 MG Oral Tablet [Percocet] Percocet 10-325 MG Percocet 10-325 MG 06/17/2019 12:00:00 AM EDT active 1 tablet as needed eCW1 ([facility]) 5 mg 06/11/2019 12:00:00 AM EDT tablet [...] active 1 to 2 as directed eCW1 ([facility]) Morphine Sulfate 15 MG Extended Release Oral Tablet Mo rphine Sulfate ER 15 MG Morphine Sulfate ER 15 MG 06/03/2019 12:00:00 AM EDT active 1 to 2 as directed eCW1 ([facility]) Morphine Sulfate 15 MG Extended Release Oral Tablet Mo rphine Sulfate ER 15 MG Morphine Sulfate ER 15 MG 06/03/2019 12:00:00 AM EDT active 1 to 2 as directed eCW1 ([facility]) 40 mg 06/03/2019 12:00:00 AM EDT tablet [...] EDT active 1 tablet as needed eCW1 ([facility]) Acetaminophen 325 MG / Oxycodone Hydroch loride 10 MG Oral Tablet [Percocet] Percocet 10-325 MG Percocet 10-325 MG 05/18/2019 12:00:00 AM EDT active 1 tablet as needed eCW1 ([facility]) Acetaminophen 325 MG / Oxycodone Hydroch loride 10 MG Oral Tablet [Percocet] Percocet 10-325 MG Percocet 10-325 MG 05/18/2019 12:00:00 AM EDT active 1 tablet as needed eCW1 ([facility]) 800 mg 05/16/2019 12:00:00 AM EDT tablet [...] active 1 to 2 as directed eCW1 ([facility]) Morphine Sulfate 15 MG Extended Release Oral Tablet Mo rphine Sulfate ER 15 MG Morphine Sulfate ER 15 MG 05/04/2019 12:00:00 AM EDT active 1 to 2 as directed eCW1 ([facility]) Morphine Sulfate 15 MG Extended Release Oral Tablet Mo rphine Sulfate ER 15 MG Morphine Sulfate ER 15 MG 05/04/2019 12:00:00 AM EDT active 1 to 2 as directed eCW1 ([facility]) 100,000 unit/gram 04/30/2019 12:00:00 AM EDT cream [...] EDT active 1 tablet as needed eCW1 ([facility]) 100,000 unit/gram 04/15/2019 12:00:00 AM EST cream [...] active 1 to 2 as directed eCW1 ([facility]) Morphine Sulfate 15 MG Extended Release Oral Tablet Mo rphine Sulfate ER 15 MG Morphine Sulfate ER 15 MG 04/08/2019 12:00:00 AM EST active 1 to 2 as directed eCW1 ([facility]) Amitriptyline Hydrochloride 25 MG Oral Tablet AMITRIPTYLINE [...] 10 days, Max Daily Dose: 20 mg [facility] 300 mg 03/27/2019 12:00:00 AM EST capsule [...] 12:00:00 AM EST active 1 tablet eCW1 ([facility]) atorvastatin 40 MG Oral Tablet Atorvastatin Calcium 40 MG Atorvastatin Calcium 40 MG 03/26/2019 12:00:00 AM EST 1.0 {tablet} activ e Atorvastatin Calcium 40 MG eCW1 ([facility]) atorvastatin 40 MG Oral Tablet Atorvastatin Calcium 40 MG Atorvastatin Calcium 40 MG 03/26/2019 12:00:00 AM EST 1.0 {tablet} activ e Atorvastatin Calcium 40 MG eCW1 ([facility]) atorvastatin 40 MG Oral Tablet Atorvastatin Calcium 40 MG Atorvastatin Calcium 40 MG 03/26/2019 12:00:00 AM EST 1.0 {tablet} activ e Atorvastatin Calcium 40 MG eCW1 ([facility]) atorvastatin 40 MG Oral Tablet Atorvastatin Calcium 40 MG Atorvastatin Calcium 40 MG 03/26/2019 12:00:00 AM EST active 1 tablet eCW1 ([facility]) atorvastatin 40 MG Oral Tablet Atorvastatin Calcium 40 MG Atorvastatin Calcium 40 MG 03/26/2019 12:00:00 AM EST 1.0 {tablet} activ e Atorvastatin Calcium 40 MG eCW1 ([facility]) atorvastatin 40 MG Oral Tablet Atorvastatin Calcium 40 MG Atorvastatin Calcium 40 MG 03/26/2019 12:00:00 AM EST active 1 tablet eCW1 ([facility]) atorvastatin 40 MG Oral Tablet Atorvastatin Calcium 40 MG Atorvastatin Calcium 40 MG 03/26/2019 12:00:00 AM EST 1.0 {tablet} activ e Atorvastatin Calcium 40 MG eCW1 ([facility]) atorvastatin 40 MG Oral Tablet Atorvastatin Calcium 40 MG Atorvastatin Calcium 40 MG 03/26/2019 12:00:00 AM EST 1.0 {tablet} activ e Atorvastatin Calcium 40 MG eCW1 ([facility]) atorvastatin 40 MG Oral Tablet Atorvastatin Calcium 40 MG Atorvastatin Calcium 40 MG 03/26/2019 12:00:00 AM EST 1.0 {tablet} activ e Atorvastatin Calcium 40 MG eCW1 ([facility]) atorvastatin 40 MG Oral Tablet Atorvastatin Calcium 40 MG Atorvastatin Calcium 40 MG 03/26/2019 12:00:00 AM EST 1.0 {tablet} activ e Atorvastatin Calcium 40 MG eCW1 ([facility]) atorvastatin 40 MG Oral Tablet Atorvastatin Calcium 40 MG Atorvastatin Calcium 40 MG 03/26/2019 12:00:00 AM EST 1.0 {tablet} activ e Atorvastatin Calcium 40 MG eCW1 ([facility]) atorvastatin 40 MG Oral Tablet Atorvastatin Calcium 40 MG Atorvastatin Calcium 40 MG 03/26/2019 12:00:00 AM EST 1.0 {tablet} activ e Atorvastatin Calcium 40 MG eCW1 ([facility]) atorvastatin 40 MG Oral Tablet Atorvastatin Calcium 40 MG Atorvastatin Calcium 40 MG 03/26/2019 12:00:00 AM EST 1.0 {tablet} activ e Atorvastatin Calcium 40 MG eCW1 ([facility]) atorvastatin 40 MG Oral Tablet Atorvastatin Calcium 40 MG Atorvastatin Calcium 40 MG 03/26/2019 12:00:00 AM EST 1.0 {tablet} activ e Atorvastatin Calcium 40 MG eCW1 ([facility]) atorvastatin 40 MG Oral Tablet Atorvastatin Calcium 40 MG Atorvastatin Calcium 40 MG 03/26/2019 12:00:00 AM EST 1.0 {tablet} activ e Atorvastatin Calcium 40 MG eCW1 ([facility]) atorvastatin 40 MG Oral Tablet Atorvastatin Calcium 40 MG Atorvastatin Calcium 40 MG 03/26/2019 12:00:00 AM EST 1.0 {tablet} activ e Atorvastatin Calcium 40 MG eCW1 ([facility]) 10-325 mg 03/26/2019 12:00:00 AM EST tablet [...] activ e Atorvastatin Calcium 40 MG eCW1 ([facility]) atorvastatin 40 MG Oral Tablet Atorvastatin Calcium 40 MG Atorvastatin Calcium 40 MG 03/26/2019 12:00:00 AM EST 1.0 {tablet} activ e Atorvastatin Calcium 40 MG eCW1 ([facility]) 1,250 mcg (50,000 unit) 03/26/2019 12:00:00 AM EST capsule 4 TAKE 1 CAPSULE BY MOUTH ONCE A WEEK ON MONDAYS TAKE 1 CAPSULE BY MOUTH ONCE A WEEK ON MONDAYS SOLD: 03/27/2019 [facility] atorvastatin 40 MG Oral Tablet Atorvastatin Calcium 40 MG Atorvastatin Calcium 40 MG 03/26/2019 12:00:00 AM EST 1.0 {tablet} activ e Atorvastatin Calcium 40 MG eCW1 ([facility]) atorvastatin 40 MG Oral Tablet Atorvastatin Calcium 40 MG Atorvastatin Calcium 40 MG 03/26/2019 12:00:00 AM EST 1.0 {tablet} activ e Atorvastatin Calcium 40 MG eCW1 ([facility]) atorvastatin 40 MG Oral Tablet Atorvastatin Calcium 40 MG Atorvastatin Calcium 40 MG 03/26/2019 12:00:00 AM EST 1.0 {tablet} activ e Atorvastatin Calcium 40 MG eCW1 ([facility]) atorvastatin 40 MG Oral Tablet Atorvastatin Calcium 40 MG Atorvastatin Calcium 40 MG 03/26/2019 12:00:00 AM EST 1.0 {tablet} activ e Atorvastatin Calcium 40 MG eCW1 ([facility]) atorvastatin 40 MG Oral Tablet Atorvastatin Calcium 40 MG Atorvastatin Calcium 40 MG 03/26/2019 12:00:00 AM EST 1.0 {tablet} activ e Atorvastatin Calcium 40 MG eCW1 ([facility]) atorvastatin 40 MG Oral Tablet Atorvastatin Calcium 40 MG Atorvastatin Calcium 40 MG 03/26/2019 12:00:00 AM EST 1.0 {tablet} activ e Atorvastatin Calcium 40 MG eCW1 ([facility]) atorvastatin 40 MG Oral Tablet Atorvastatin Calcium 40 MG Atorvastatin Calcium 40 MG 03/26/2019 12:00:00 AM EST 1.0 {tablet} activ e Atorvastatin Calcium 40 MG eCW1 ([facility]) atorvastatin 40 MG Oral Tablet Atorvastatin Calcium 40 MG Atorvastatin Calcium 40 MG 03/26/2019 12:00:00 AM EST 1.0 {tablet} activ e Atorvastatin Calcium 40 MG eCW1 ([facility]) atorvastatin 40 MG Oral Tablet Atorvastatin Calcium 40 MG Atorvastatin Calcium 40 MG 03/26/2019 12:00:00 AM EST 1.0 {tablet} activ e Atorvastatin Calcium 40 MG eCW1 ([facility]) atorvastatin 40 MG Oral Tablet Atorvastatin Calcium 40 MG Atorvastatin Calcium 40 MG 03/26/2019 12:00:00 AM EST 1.0 {tablet} activ e Atorvastatin Calcium 40 MG eCW1 ([facility]) atorvastatin 40 MG Oral Tablet Atorvastatin Calcium 40 MG Atorvastatin Calcium 40 MG 03/26/2019 12:00:00 AM EST 1.0 {tablet} activ e Atorvastatin Calcium 40 MG eCW1 ([facility]) atorvastatin 40 MG Oral Tablet Atorvastatin Calcium 40 MG Atorvastatin Calcium 40 MG 03/26/2019 12:00:00 AM EST 1.0 {tablet} activ e Atorvastatin Calcium 40 MG eCW1 ([facility]) atorvastatin 40 MG Oral Tablet Atorvastatin Calcium 40 MG Atorvastatin Calcium 40 MG 03/26/2019 12:00:00 AM EST active 1 tablet eCW1 ([facility]) atorvastatin 40 MG Oral Tablet Atorvastatin Calcium 40 MG Atorvastatin Calcium 40 MG 03/26/2019 12:00:00 AM EST 1.0 {tablet} activ e Atorvastatin Calcium 40 MG eCW1 ([facility]) atorvastatin 40 MG Oral Tablet Atorvastatin Calcium 40 MG Atorvastatin Calcium 40 MG 03/26/2019 12:00:00 AM EST 1.0 {tablet} activ e Atorvastatin Calcium 40 MG eCW1 ([facility]) atorvastatin 40 MG Oral Tablet Atorvastatin Calcium 40 MG Atorvastatin Calcium 40 MG 03/26/2019 12:00:00 AM EST 1.0 {tablet} activ e Atorvastatin Calcium 40 MG eCW1 ([facility]) atorvastatin 40 MG Oral Tablet Atorvastatin Calcium 40 MG Atorvastatin Calcium 40 MG 03/26/2019 12:00:00 AM EST 1.0 {tablet} activ e Atorvastatin Calcium 40 MG eCW1 ([facility]) atorvastatin 40 MG Oral Tablet Atorvastatin Calcium 40 MG Atorvastatin Calcium 40 MG 03/26/2019 12:00:00 AM EST 1.0 {tablet} activ e Atorvastatin Calcium 40 MG eCW1 ([facility]) atorvastatin 40 MG Oral Tablet Atorvastatin Calcium 40 MG Atorvastatin Calcium 40 MG 03/26/2019 12:00:00 AM EST 1.0 {tablet} activ e Atorvastatin Calcium 40 MG eCW1 ([facility]) atorvastatin 40 MG Oral Tablet Atorvastatin Calcium 40 MG Atorvastatin Calcium 40 MG 03/26/2019 12:00:00 AM EST 1.0 {tablet} activ e Atorvastatin Calcium 40 MG eCW1 ([facility]) atorvastatin 40 MG Oral Tablet Atorvastatin Calcium 40 MG Atorvastatin Calcium 40 MG 03/26/2019 12:00:00 AM EST 1.0 {tablet} activ e Atorvastatin Calcium 40 MG eCW1 ([facility]) atorvastatin 40 MG Oral Tablet Atorvastatin Calcium 40 MG Atorvastatin Calcium 40 MG 03/26/2019 12:00:00 AM EST 1.0 {tablet} activ e Atorvastatin Calcium 40 MG eCW1 ([facility]) atorvastatin 40 MG Oral Tablet Atorvastatin Calcium 40 MG Atorvastatin Calcium 40 MG 03/26/2019 12:00:00 AM EST 1.0 {tablet} activ e Atorvastatin Calcium 40 MG eCW1 ([facility]) atorvastatin 40 MG Oral Tablet Atorvastatin Calcium 40 MG Atorvastatin Calcium 40 MG 03/26/2019 12:00:00 AM EST 1.0 {tablet} activ e Atorvastatin Calcium 40 MG eCW1 ([facility]) Nystatin 823789 UNT/ML Topical Cream Nystatin [id number] U NIT/GM Nystatin [id number] UNIT/GM 03/26/2019 12:00:00 AM EST active 1 application 2g eCW1 ([facility]) atorvastatin 40 MG Oral Tablet Atorvastatin Calcium 40 MG Atorvastatin Calcium 40 MG 03/26/2019 12:00:00 AM EST 1.0 {tablet} activ e Atorvastatin Calcium 40 MG eCW1 ([facility]) Ergocalciferol 10593 UNT Oral Capsule Vi tamin D (Ergocalciferol) 1.25 MG (30252 UT) Oral Capsule (ERGOCALCIFEROL) Vitamin D (Ergocalciferol) 1.25 MG (5000 0 UT) Oral Capsule (ERGOCALCIFEROL) 03/26/2019 12:00:00 AM EST active [facility] Losartan Potassium 50 MG Oral Tablet [place] Potassium 50 MG Oral Tablet (COZAAR) Losartan Potassium 50 MG Oral Tablet (COZAAR) 03/26/19 20 12:00:00 AM EST active [facility] atorvastatin 40 MG Oral Tablet Atorvastatin Calcium 40 MG Oral Tablet (LIPITOR) Atorvastatin Calcium 40 MG Oral Tablet (LIPITOR) 03/26/2019 12:00:00 AM EST active [facility] atorvastatin 40 MG Oral Tablet Atorvastatin Calcium 40 MG Atorvastatin Calcium 40 MG 03/26/2019 12:00:00 AM EST active 1 tablet eCW1 ([facility]) atorvastatin 40 MG Oral Tablet Atorvastatin Calcium 40 MG Atorvastatin Calcium 40 MG 03/26/2019 12:00:00 AM EST 1.0 {tablet} activ e Atorvastatin Calcium 40 MG eCW1 ([facility]) atorvastatin 40 MG Oral Tablet Atorvastatin Calcium 40 MG Atorvastatin Calcium 40 MG 03/26/2019 12:00:00 AM EST 1.0 {tablet} activ e Atorvastatin Calcium 40 MG eCW1 ([facility]) atorvastatin 40 MG Oral Tablet Atorvastatin Calcium 40 MG Atorvastatin Calcium 40 MG 03/26/2019 12:00:00 AM EST 1.0 {tablet} activ e Atorvastatin Calcium 40 MG eCW1 ([facility]) Nystatin 554759 UNT/ML Topical Cream Nystatin [id number] U NIT/GM Nystatin [id number] UNIT/GM 03/26/2019 12:00:00 AM EST active 1 application 2g eCW1 ([facility]) atorvastatin 40 MG Oral Tablet Atorvastatin Calcium 40 MG Atorvastatin Calcium 40 MG 03/26/2019 12:00:00 AM EST 1.0 {tablet} activ e Atorvastatin Calcium 40 MG eCW1 ([facility]) atorvastatin 40 MG Oral Tablet Atorvastatin Calcium 40 MG Atorvastatin Calcium 40 MG 03/26/2019 12:00:00 AM EST 1.0 {tablet} activ e Atorvastatin Calcium 40 MG eCW1 ([facility]) atorvastatin 40 MG Oral Tablet Atorvastatin Calcium 40 MG Atorvastatin Calcium 40 MG 03/26/2019 12:00:00 AM EST 1.0 {tablet} activ e Atorvastatin Calcium 40 MG eCW1 ([facility]) atorvastatin 40 MG Oral Tablet Atorvastatin Calcium 40 MG Atorvastatin Calcium 40 MG 03/26/2019 12:00:00 AM EST 1.0 {tablet} activ e Atorvastatin Calcium 40 MG eCW1 ([facility]) atorvastatin 40 MG Oral Tablet Atorvastatin Calcium 40 MG Atorvastatin Calcium 40 MG 03/26/2019 12:00:00 AM EST active 1 tablet eCW1 ([facility]) atorvastatin 40 MG Oral Tablet Atorvastatin Calcium 40 MG Atorvastatin Calcium 40 MG 03/26/2019 12:00:00 AM EST 1.0 {tablet} activ e Atorvastatin Calcium 40 MG eCW1 ([facility]) atorvastatin 40 MG Oral Tablet Atorvastatin Calcium 40 MG Atorvastatin Calcium 40 MG 03/26/2019 12:00:00 AM EST 1.0 {tablet} activ e Atorvastatin Calcium 40 MG eCW1 ([facility]) atorvastatin 40 MG Oral Tablet Atorvastatin Calcium 40 MG Atorvastatin Calcium 40 MG 03/26/2019 12:00:00 AM EST 1.0 {tablet} activ e Atorvastatin Calcium 40 MG eCW1 ([facility]) atorvastatin 40 MG Oral Tablet Atorvastatin Calcium 40 MG Atorvastatin Calcium 40 MG 03/26/2019 12:00:00 AM EST 1.0 {tablet} activ e Atorvastatin Calcium 40 MG eCW1 ([facility]) atorvastatin 40 MG Oral Tablet Atorvastatin Calcium 40 MG Atorvastatin Calcium 40 MG 03/26/2019 12:00:00 AM EST 1.0 {tablet} activ e Atorvastatin Calcium 40 MG eCW1 ([facility]) atorvastatin 40 MG Oral Tablet Atorvastatin Calcium 40 MG Atorvastatin Calcium 40 MG 03/26/2019 12:00:00 AM EST 1.0 {tablet} activ e Atorvastatin Calcium 40 MG eCW1 ([facility]) atorvastatin 40 MG Oral Tablet Atorvastatin Calcium 40 MG Atorvastatin Calcium 40 MG 03/26/2019 12:00:00 AM EST 1.0 {tablet} activ e Atorvastatin Calcium 40 MG eCW1 ([facility]) Nystatin 145772 UNT/ML Topical Cream Nystatin [id number] U NIT/GM Nystatin [id number] UNIT/GM 03/26/2019 12:00:00 AM EST active 1 application 2g eCW1 ([facility]) atorvastatin 40 MG Oral Tablet Atorvastatin Calcium 40 MG Atorvastatin Calcium 40 MG 03/26/2019 12:00:00 AM EST 1.0 {tablet} activ e Atorvastatin Calcium 40 MG eCW1 ([facility]) atorvastatin 40 MG Oral Tablet Atorvastatin Calcium 40 MG Atorvastatin Calcium 40 MG 03/26/2019 12:00:00 AM EST 1.0 {tablet} activ e Atorvastatin Calcium 40 MG eCW1 ([facility]) atorvastatin 40 MG Oral Tablet Atorvastatin Calcium 40 MG Atorvastatin Calcium 40 MG 03/26/2019 12:00:00 AM EST active 1 tablet eCW1 ([facility] [facility] atorvastatin 40 MG Oral Tablet Atorvastatin Calcium 40 MG Atorvastatin Calcium 40 MG 03/26/2019 12:00:00 AM EST 1.0 {tablet} activ e Atorvastatin Calcium 40 MG eCW1 ([facility]) atorvastatin 40 MG Oral Tablet Atorvastatin Calcium 40 MG Atorvastatin Calcium 40 MG 03/26/2019 12:00:00 AM EST 1.0 {tablet} activ e Atorvastatin Calcium 40 MG eCW1 ([facility]) atorvastatin 40 MG Oral Tablet Atorvastatin Calcium 40 MG Atorvastatin Calcium 40 MG 03/26/2019 12:00:00 AM EST 1.0 {tablet} activ e Atorvastatin Calcium 40 MG eCW1 ([facility]) atorvastatin 40 MG Oral Tablet Atorvastatin Calcium 40 MG Atorvastatin Calcium 40 MG 03/26/2019 12:00:00 AM EST 1.0 {tablet} activ e Atorvastatin Calcium 40 MG eCW1 ([facility]) atorvastatin 40 MG Oral Tablet Atorvastatin Calcium 40 MG Atorvastatin Calcium 40 MG 03/26/2019 12:00:00 AM EST 1.0 {tablet} activ e Atorvastatin Calcium 40 MG eCW1 ([facility]) atorvastatin 40 MG Oral Tablet Atorvastatin Calcium 40 MG Atorvastatin Calcium 40 MG 03/26/2019 12:00:00 AM EST active 1 tablet eCW1 ([facility]) atorvastatin 40 MG Oral Tablet Atorvastatin Calcium 40 MG Atorvastatin Calcium 40 MG 03/26/2019 12:00:00 AM EST 1.0 {tablet} activ e Atorvastatin Calcium 40 MG eCW1 ([facility]) atorvastatin 40 MG Oral Tablet Atorvastatin Calcium 40 MG Atorvastatin Calcium 40 MG 03/26/2019 12:00:00 AM EST 1.0 {tablet} activ e Atorvastatin Calcium 40 MG eCW1 ([facility]) atorvastatin 40 MG Oral Tablet Atorvastatin Calcium 40 MG Atorvastatin Calcium 40 MG 03/26/2019 12:00:00 AM EST 1.0 {tablet} activ e Atorvastatin Calcium 40 MG eCW1 ([facility]) atorvastatin 40 MG Oral Tablet Atorvastatin Calcium 40 MG Atorvastatin Calcium 40 MG 03/26/2019 12:00:00 AM EST 1.0 {tablet} activ e Atorvastatin Calcium 40 MG eCW1 ([facility]) atorvastatin 40 MG Oral Tablet Atorvastatin Calcium 40 MG Atorvastatin Calcium 40 MG 03/26/2019 12:00:00 AM EST 1.0 {tablet} activ e Atorvastatin Calcium 40 MG eCW1 ([facility]) atorvastatin 40 MG Oral Tablet Atorvastatin Calcium 40 MG Atorvastatin Calcium 40 MG 03/26/2019 12:00:00 AM EST 1.0 {tablet} activ e Atorvastatin Calcium 40 MG eCW1 ([facility]) atorvastatin 40 MG Oral Tablet Atorvastatin Calcium 40 MG Atorvastatin Calcium 40 MG 03/26/2019 12:00:00 AM EST 1.0 {tablet} activ e Atorvastatin Calcium 40 MG eCW1 ([facility]) Nystatin 424394 UNT/ML Topical Cream Nystatin 547304 U NIT/GM Nystatin 142642 UNIT/GM 03/26/2019 12:00:00 AM EST active 1 application 2g eCW1 ([facility]) atorvastatin 40 MG Oral Tablet Atorvastatin Calcium 40 MG Atorvastatin Calcium 40 MG 03/26/2019 12:00:00 AM EST 1.0 {tablet} activ e Atorvastatin Calcium 40 MG eCW1 ([facility]) atorvastatin 40 MG Oral Tablet Atorvastatin Calcium 40 MG Atorvastatin Calcium 40 MG 03/26/2019 12:00:00 AM EST 1.0 {tablet} activ e Atorvastatin Calcium 40 MG eCW1 ([facility]) atorvastatin 40 MG Oral Tablet Atorvastatin Calcium 40 MG Atorvastatin Calcium 40 MG 03/26/2019 12:00:00 AM EST 1.0 {tablet} activ e Atorvastatin Calcium 40 MG eCW1 ([facility]) atorvastatin 40 MG Oral Tablet Atorvastatin Calcium 40 MG Atorvastatin Calcium 40 MG 03/26/2019 12:00:00 AM EST 1.0 {tablet} activ e Atorvastatin Calcium 40 MG eCW1 ([facility]) atorvastatin 40 MG Oral Tablet Atorvastatin Calcium 40 MG Atorvastatin Calcium 40 MG 03/26/2019 12:00:00 AM EST 1.0 {tablet} activ e Atorvastatin Calcium 40 MG eCW1 ([facility]) atorvastatin 40 MG Oral Tablet Atorvastatin Calcium 40 MG Atorvastatin Calcium 40 MG 03/26/2019 12:00:00 AM EST 1.0 {tablet} activ e Atorvastatin Calcium 40 MG eCW1 ([facility]) atorvastatin 40 MG Oral Tablet Atorvastatin Calcium 40 MG Atorvastatin Calcium 40 MG 03/26/2019 12:00:00 AM EST 1.0 {tablet} activ e Atorvastatin Calcium 40 MG eCW1 ([facility]) atorvastatin 40 MG Oral Tablet Atorvastatin Calcium 40 MG Atorvastatin Calcium 40 MG 03/26/2019 12:00:00 AM EST 1.0 {tablet} activ e Atorvastatin Calcium 40 MG eCW1 ([facility]) atorvastatin 40 MG Oral Tablet Atorvastatin Calcium 40 MG Atorvastatin Calcium 40 MG 03/26/2019 12:00:00 AM EST 1.0 {tablet} activ e Atorvastatin Calcium 40 MG eCW1 ([facility]) atorvastatin 40 MG Oral Tablet Atorvastatin Calcium 40 MG Atorvastatin Calcium 40 MG 03/26/2019 12:00:00 AM EST 1.0 {tablet} activ e Atorvastatin Calcium 40 MG eCW1 ([facility]) Nystatin 849801 UNT/ML Topical Cream Nystatin 450350 U NIT/GM Nystatin 486045 UNIT/GM 03/26/2019 12:00:00 AM EST active 1 application 2g eCW1 ([facility]) atorvastatin 40 MG Oral Tablet Atorvastatin Calcium 40 MG Atorvastatin Calcium 40 MG 03/26/2019 12:00:00 AM EST 1.0 {tablet} activ e Atorvastatin Calcium 40 MG eCW1 ([facility]) atorvastatin 40 MG Oral Tablet Atorvastatin Calcium 40 MG Atorvastatin Calcium 40 MG 03/26/2019 12:00:00 AM EST 1.0 {tablet} activ e Atorvastatin Calcium 40 MG eCW1 ([facility]) atorvastatin 40 MG Oral Tablet Atorvastatin Calcium 40 MG Atorvastatin Calcium 40 MG 03/26/2019 12:00:00 AM EST 1.0 {tablet} activ e Atorvastatin Calcium 40 MG eCW1 ([facility]) atorvastatin 40 MG Oral Tablet Atorvastatin Calcium 40 MG Atorvastatin Calcium 40 MG 03/26/2019 12:00:00 AM EST active 1 tablet eCW1 ([facility]) atorvastatin 40 MG Oral Tablet Atorvastatin Calcium 40 MG Atorvastatin Calcium 40 MG 03/26/2019 12:00:00 AM EST 1.0 {tablet} activ e Atorvastatin Calcium 40 MG eCW1 ([facility]) atorvastatin 40 MG Oral Tablet Atorvastatin Calcium 40 MG Atorvastatin Calcium 40 MG 03/26/2019 12:00:00 AM EST 1.0 {tablet} activ e Atorvastatin Calcium 40 MG eCW1 ([facility]) atorvastatin 40 MG Oral Tablet Atorvastatin Calcium 40 MG Atorvastatin Calcium 40 MG 03/26/2019 12:00:00 AM EST 1.0 {tablet} activ e Atorvastatin Calcium 40 MG eCW1 ([facility]) atorvastatin 40 MG Oral Tablet Atorvastatin Calcium 40 MG Atorvastatin Calcium 40 MG 03/26/2019 12:00:00 AM EST 1.0 {tablet} activ e Atorvastatin Calcium 40 MG eCW1 ([facility]) atorvastatin 40 MG Oral Tablet Atorvastatin Calcium 40 MG Atorvastatin Calcium 40 MG 03/26/2019 12:00:00 AM EST 1.0 {tablet} activ e Atorvastatin Calcium 40 MG eCW1 ([facility]) atorvastatin 40 MG Oral Tablet Atorvastatin Calcium 40 MG Atorvastatin Calcium 40 MG 03/26/2019 12:00:00 AM EST 1.0 {tablet} activ e Atorvastatin Calcium 40 MG eCW1 ([facility]) atorvastatin 40 MG Oral Tablet Atorvastatin Calcium 40 MG Atorvastatin Calcium 40 MG 03/26/2019 12:00:00 AM EST 1.0 {tablet} activ e Atorvastatin Calcium 40 MG eCW1 ([facility]) atorvastatin 40 MG Oral Tablet Atorvastatin Calcium 40 MG Atorvastatin Calcium 40 MG 03/26/2019 12:00:00 AM EST 1.0 {tablet} activ e Atorvastatin Calcium 40 MG eCW1 ([facility]) Nystatin 610054 UNT/ML Topical Cream Nystatin 880174 U NIT/GM Nystatin 524122 UNIT/GM 03/26/2019 12:00:00 AM EST active 1 application eCW1 ([facility]) atorvastatin 40 MG Oral Tablet Atorvastatin Calcium 40 MG Atorvastatin Calcium 40 MG 03/26/2019 12:00:00 AM EST 1.0 {tablet} activ e Atorvastatin Calcium 40 MG eCW1 ([facility]) atorvastatin 40 MG Oral Tablet Atorvastatin Calcium 40 MG Atorvastatin Calcium 40 MG 03/26/2019 12:00:00 AM EST 1.0 {tablet} activ e Atorvastatin Calcium 40 MG eCW1 ([facility]) atorvastatin 40 MG Oral Tablet Atorvastatin Calcium 40 MG Atorvastatin Calcium 40 MG 03/26/2019 12:00:00 AM EST active 1 tablet eCW1 ([facility]) atorvastatin 40 MG Oral Tablet Atorvastatin Calcium 40 MG Atorvastatin Calcium 40 MG 03/26/2019 12:00:00 AM EST 1.0 {tablet} activ e Atorvastatin Calcium 40 MG eCW1 ([facility]) Acetaminophen 325 MG / Oxycodone Hydroch loride 10 MG Oral Tablet [Percocet] Percocet 10-325 MG Percocet 10-325 MG 03/25/2019 12:00:00 AM EST active 1 tablet as needed eCW1 ([facility]) Morphine Sulfate 15 MG Extended Release Oral Tablet Mo rphine Sulfate ER 15 MG Morphine Sulfate ER 15 MG 03/10/2019 12:00:00 AM EST active 1 to 2 as directed eCW1 ([facility]) Morphine Sulfate 15 MG Extended Release Oral Tablet Mo rphine Sulfate ER 15 MG Morphine Sulfate ER 15 MG 03/10/2019 12:00:00 AM EST active 1 to 2 as directed eCW1 ([facility]) Morphine Sulfate 15 MG Extended Release Oral Tablet Mo rphine Sulfate ER 15 MG Morphine Sulfate ER 15 MG 03/10/2019 12:00:00 AM EST active 1 to 2 as directed eCW1 ([facility]) 15 mg 03/10/2019 12:00:00 AM EST tablet extended release 90 TAKE 1 TABLET BY MOUTH IN THE MORNING AND 2 AT BEDTIME MAXIMUM DAILY DOSE = 3 TAKE 1 TABLET BY MOUTH IN THE MORNING AND 2 AT BEDTIME MAXIMUM DAILY DOSE = 3 SOLD: 03/13/2019 [facility] Morphine Sulfate 15 MG Extended Release Oral Tablet Mo rphine Sulfate ER 15 MG Morphine Sulfate ER 15 MG 03/10/2019 12:00:00 AM EST active 1 to 2 as directed eCW1 ([facility]) Morphine Sulfate 15 MG Extended Release Oral Tablet Mo rphine Sulfate ER 15 MG Morphine Sulfate ER 15 MG 03/10/2019 12:00:00 AM EST active 1 to 2 as directed eCW1 ([facility]) 5 mg 03/05/2019 12:00:00 AM EST tablet 60 TAKE ONE TABLET BY MOUTH EVERY 12 HOURS NEEDED FOR ANXIETY MAXIMUM DAILY DOSE = 2 TABLETS TAKE ONE TABLET BY MOUTH EVERY 12 HOURS NEEDED FOR ANXIETY MAXIMUM DAILY DOSE = 2 TABLETS SOLD: 03/05/2019 [facility] Diazepam 5 MG Oral Tablet diazePAM 5 MG Oral Tablet (V ALIUM) diazePAM 5 MG Oral Tablet (VALIUM) 03/05/2019 12:00:00 AM EST 5 mg Oral ac tive Take 1 tablet by mouth every 12 (twelve) hours as needed for Anxiety, Max Daily Dose: 10 mg [facility] 300 mg 02/24/2019 12:00:00 AM EST capsule [...] EST active 1 tablet as needed eCW1 ([facility]) Acetaminophen 325 MG / Oxycodone Hydroch loride 10 MG Oral Tablet [Percocet] Percocet 10-325 MG Percocet 10-325 MG 02/17/2019 12:00:00 AM EST active 1 tablet as needed eCW1 ([facility]) Acetaminophen 325 MG / Oxycodone Hydroch loride 10 MG Oral Tablet [Percocet] Percocet 10-325 MG Percocet 10-325 MG 02/17/2019 12:00:00 AM EST active 1 tablet as needed eCW1 ([facility]) Acetaminophen 325 MG / Oxycodone Hydroch loride 10 MG Oral Tablet [Percocet] Percocet 10-325 MG Percocet 10-325 MG 02/17/2019 12:00:00 AM EST active 1 tablet as needed eCW1 ([facility]) Acetaminophen 325 MG / Oxycodone Hydroch loride 10 MG Oral Tablet [Percocet] Percocet 10-325 MG Percocet 10-325 MG 02/17/2019 12:00:00 AM EST active 1 tablet as needed eCW1 ([facility]) Percocet 10-325 MG UNK 02/17/2019 12:00:00 AM EST active 1 tablet as needed eCW1 ([facility]) Acetaminophen 325 MG / Oxycodone Hydroch loride 10 MG Oral Tablet [Percocet] Percocet 10-325 MG Percocet 10-325 MG 02/17/2019 12:00:00 AM EST active 1 tablet as needed eCW1 ([facility]) Acetaminophen 325 MG / Oxycodone Hydroch loride 10 MG Oral Tablet [Percocet] Percocet 10-325 MG Percocet 10-325 MG 02/17/2019 12:00:00 AM EST active 1 tablet as needed eCW1 ([facility]) Amitriptyline Hydrochloride 25 MG Oral Tablet AMITRIPTYLINE [...] MAXIMUM DAILY DOSE = 3 SOLD: 02/14/2019 [facility] Morphine Sulfate 15 MG Extended Release Oral Tablet Mo rphine Sulfate ER 15 MG Morphine Sulfate ER 15 MG 02/12/2019 12:00:00 AM EST active 1 to 2 as directed eCW1 ([facility]) Morphine Sulfate ER 15 MG UNK 02/12/2019 12:00:00 AM EST active 1 to 2 as directed eCW1 ([facility]) Morphine Sulfate 15 MG Extended Release Oral Tablet Mo rphine Sulfate ER 15 MG Morphine Sulfate ER 15 MG 02/12/2019 12:00:00 AM EST active 1 to 2 as directed eCW1 ([facility]) 5 mg 02/03/2019 12:00:00 AM EST tablet 60 TAKE ONE TABLET BY MOUTH EVERY 12 HOURS NEEDED FOR ANXIETY MAXIMUM DAILY DOSE = 2 TAKE ONE TABLET BY MOUTH EVERY 12 HOURS NEEDED FOR ANXIETY MAXIMUM DAILY DOSE = 2 SOLD: 02/03/2019 [facility] 10-325 mg 01/24/2019 12:00:00 AM EST tablet 120 TAKE ONE TABLET BY MOUTH EVERY 6 HOURS NEEDED MAXIMUM DAILY DOSE = 4 TAKE ONE TABLET BY MOUTH EVERY 6 HOURS NEEDED MAXIMUM DAILY DOSE = 4 SOLD: 01/24/2019 [facility] Acetaminophen 325 MG / Oxycodone Hydroch loride 10 MG Oral Tablet [Percocet] Percocet 10-325 MG Percocet 10-325 MG 01/19/2019 12:00:00 AM EST active 1 tablet as needed eCW1 ([facility]) Morphine Sulfate 15 MG Extended Release Oral Tablet Mo rphine Sulfate ER 15 MG Morphine Sulfate ER 15 MG 01/15/2019 12:00:00 AM EST active 1 to 2 as directed eCW1 ([facility]) 15 mg 01/15/2019 12:00:00 AM EST tablet extended release 90 TAKE 1 TABLET BY MOUTH IN THE MORNING AND 2 AT BEDTIME MAXIMUM DAILY DOSE = 3 TAKE 1 TABLET BY MOUTH IN THE MORNING AND 2 AT BEDTIME MAXIMUM DAILY DOSE = 3 SOLD: 01/15/2019 [facility] Morphine Sulfate 15 MG Extended Release Oral Tablet Mo rphine Sulfate ER 15 MG Morphine Sulfate ER 15 MG 01/15/2019 12:00:00 AM EST active 1 to 2 as directed eCW1 ([facility]) 5 mg 01/07/2019 12:00:00 AM EST tablet [...] Release Particles (CYMBALTA) 12/30/2018 12:00:00 AM EST [facility] Carisoprodol 350 MG Oral Tablet CARISOPRODOL 12/05/2018 [...] DAILY DOSE = 2 CAPSULE SOLD: 01/24/2019 [facility] Amitriptyline Hydrochloride 25 MG Oral Tablet [...] aborted Take 25 mg by mouth daily [facility] Propranolol Hydrochloride 20 MG Oral Tablet propranolo l (INDERAL) 20 MG tablet propranolol (INDERAL) 20 MG tablet 01/13/2018 12:00:00 AM EST aborted TAKE ONE TABLET BY MOUTH EVERY DAY ON EM PTY STOMACH [facility] Oxycodone Hydrochloride 5 MG Oral Tablet oxyCODONE (ROXICODONE) 5 MG immediate release tablet oxyCODONE (ROXICODONE) 5 MG immediate release tablet 0 06/25/2017 12:00:00 AM EDT aborted Take 1 PO q4h prn pain, MDD = 6 [facility] Insurance Providers Payer name Policy type / Coverage type Policy ID Covered republican ID Covered republican's relationship to daly Policy [place] Plan Information MEDICARE [id number] SP [id number] [employer]CE[employer] BC-BS PPO 306 [id number] SP [id number] MEDICARE C [id number] S [id number] [place]/307 [id number] SP [id number] [place]/307 [id number] SP [id number] [place] BC-BS PPO 306 [id number] SP [id number] [employer] BCBS B [id number] S [id number] TRAVELERS WC W [id number] Empl [id number] [place] 220/720 [id number] SP [id number] BCBS [employer] [id number] SP [id number] [place] P[place] 302/307 [id number] SP [id number] [place] 302/307 [id number] SP [id number] EXCELLUS H [id number] Self [id number] [employer] BC-BS PPO 306 [id number] SP [id number] 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 [id number] SP [id number] TRAVELERS-WC WCB# [id number] SP WCB # [id number] [place]/307 [id number] SP [id number] 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 [id number] SP [id number] [employer]CELL[employer] BCBS B [id number] S [id number] 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 WCB# [id number] WCB# [id number] 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 [id number] SP [id number] TRAVELERS-WC WCB# [id number] SP WCB # [id number] 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 [id number] SP [id number] 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 [id number] SP [id number] OTHER WORKERS COMPENSATI O WCB#[id number] S WCB#[id number] TRAVELERS WC W [id number] Empl [id number] ANSI-Commercial [id number] ANSI-Not a Secondary Insurance [id number] ANSI-Not a Secondary Insurance [id number] ANSI-Commercial [id number] ANSI-Not a Secondary Insurance [id number] ANSI-Commercial [id number] ANSI-Commercial [id number] ANSI-Not a Secondary Insurance [id number] 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 [facility]# [id number] SP B# [id number] ANSI-Commercial [id number] ANSI-Not a Secondary Insurance [id number] ANSI-Commercial [id number] ANSI-Not a Secondary Insurance [id number] ANSI-Not a Secondary Insurance [id number] ANSI-Commercial [id number] ANSI-Commercial [id number]-9af5-[id number] ANSI-Not a Secondary Insurance [id number] ANSI-Commercial [id number] ANSI-Not a Secondary Insurance [id number] ANSI-Commercial [id number] ANSI-Not a Secondary Insurance [id number] [id number] [id number]-[id number] ANSI-Not a Secondary Insurance [id number] [id number]-o74d-[id number] ANSI-Commercial [id number] [facility] [place] [facility] [place] [id number] SP [id number] ANSI-Not a Secondary Insurance [id number] ANSI-Commercial [id number]-[id number] [id number]-[id number] ANSI-Not a Secondary Insurance [id number]-g64e8 c1sb6h9 [id number]-[id number] ANSI-Commercial [id number]-[id number] ANSI-Commercial [id number]-4682-c2h3-m87w47s79f5t 8j28t4l1-281d-9009-z2f7-[id number] ANSI-Not a Secondary Insurance [id number]-[id number]-1917-4x4h-[id number] ANSI-Commercial [id number]-[id number]-[id number] ANSI-Not a Secondary Insurance [id number]-ed76-2439-[id number] ANSI-Not a Secondary Insurance [id number]-[id number] ANSI-Commercial [id number]-[id number]-2p35-[id number] ANSI-Not a Secondary Insurance [id number]-o0l2-218z-i3f2-suf2f 783a9ev [id number]-e9x5-704o-d8r0-[id number] ANSI-Commercial [id number]-[id number]-[id number] [id number]-[id number]-o59atb1cp435 ANSI-Not a Secondary Insurance [id number] [id number]-p10o-6jcp-2u45-f3356m0v0ui7 ANSI-Commercial [id number]-[id number]-3p99-3449-[id number] ANSI-Commercial [id number]-[id number] [id number]-366h-[id number] ANSI-Not a Secondary Insurance 8efeny7l-[id number]-c8m9-uj38z [id number] 9ntilg3l-b038-015l-v2d2-ku46v4c6l8n4 ANSI-Not a Secondary Insurance [id number] [id number] [id number]-i7t7-8522-[id number] ANSI-Commercial [id number]-[id number] ANSI-Commercial [id number]-fl40-84j7-mp2p-3xt0hrsv6mc0 [id number]-uo59-36a0-os0x-3sc6jseq7xo6 ANSI-Not a Secondary Insurance [id number]-e76r-[id number] [id number] [id number]-h6g3-3knn-d65r-[id number] ANSI-Commercial [id number]-[id number]-[id number] ANSI-Not a Secondary Insurance [id number] ANSI-Not a Secondary Insurance [id number]-3m8r-38es-n0t5-[id number] be554i9 [id number]-9i4g-53zd-p2x5-[id number] ANSI-Commercial esxhz987-y8i1-39m4-7bey-[id number] byano976-s0g7-43m1-9ess-[id number] ANSI-Commercial [id number] ANSI-Not a Secondary Insurance 586u7d3p-2f75-1387-461l-s140f iq5erk7 122y7r3z-7y70-1181-273x-w772ako4zvi5 ANSI-Not a Secondary Insurance 780a483r-95oo-4lvs-1c7v-8b335 r3k20k3 928l965y-72lz-3mzw-6j2y-9m337p2r96x1 ANSI-Commercial w6rb0290-75q1-47d1-92d5-0l19655wgr51 u4qg9103-89o1-96q4-03z5-5o71604ojw10 ANSI-Commercial m689436i-12sr-3214-5y17-39je5u6b24kj n333133r-68bp-8086-7c99-85yw5m8v29lb ANSI-Not a Secondary Insurance 9w1o3647-t0m7-2ip8-x41c-2oj02 5oi9e61 0p4s0422-j0i6-8zq6-g22b-9tb925gm0i34 ANSI-Commercial 166z00s4-9vja-01m5-p42g-3itw2737m457 608q83f7-7phc-13b2-a70t-6pxu2604x312 ANSI-Not a Secondary Insurance e9u3182l-5zi1-127f-3wk3-91kli 4r08qcr w2n5308i-2zv1-679f-2td7-73uih1p62aoo ANSI-Commercial 7cnx696q-l838-31d7-i245-19h253047892 9huu228o-z687-59t2-d385-73g020197042 ANSI-Not a Secondary Insurance 8b54lm24-f160-5452-5291-939z0 465w6d6 8w65dt96-g003-3914-7322-661j9806a7f9 ANSI-Commercial 37uj2og4-3o78-6on5-2063-4fqv3a3311gb 45yx9ey4-6y03-2en8-3226-4jaa0r1525xc ANSI-Not a Secondary Insurance 33ki0902-16f2-38ot-s319-f594w i6357r1 05aj1286-40o7-78cq-q302-y945bo0533v7 ANSI-Commercial t5h81526-9nu9-1594-5z34-4ns24850w58m t6f89026-2ya8-3699-7e99-4em91999g74n ANSI-Not a Secondary Insurance s941t650-ip29-6cjs-128z-0l443 ppm5r5x w942z840-cx95-0idi-494q-1x209zex5z4s ANSI-Commercial 3ii3ac46-b1u8-66or-b02b-12o6576ag7xu 6fe3zx74-m3d6-54cc-e42l-43i3071cj9ii ANSI-Not a Secondary Insurance 1f98r3rh-2n54-1i57-97r1-z36o9 1mrsz35 6k37d6uy-9v91-2y14-36c2-l72l67jmlw03 ANSI-Not a Secondary Insurance 9rohe1q9-2u13-5nc1-vd7c-944p5 238g8v0 9yaen6v2-7u56-7ds4-ab4s-549s3359g9e0 ANSI-Commercial d619q9ex-12r8-141u-3473-a2mt4s1zf8w9 w431w2ed-50t8-318k-5676-l2fx9h1si9w3 ANSI-Commercial p3n0a526-7279-30e4-71fo-9i20g0vz839a f2t7o874-0885-06g5-52ta-5r19m5qt117y ANSI-Not a Secondary Insurance 9663d176-5003-1q77-6zks-i9z14 n6585as 0567m107-8491-6a75-0fos-l8w11a7890xk ANSI-Commercial 44289001-j702-7773-jt09-pgr3f3556097 64123781-l364-2284-pb00-eiv3l7760455 ANSI-Not a Secondary Insurance 81a107bb-b410-17zt-d1od-4tz71 1feaaac 10u133xd-c854-38mf-v1zu-5de216vkhfcv ANSI-Not a Secondary Insurance 04j81i90-h5lh-7478-4rc3-6944c 77638c5 86u46l09-w2ge-7677-2lf2-5786c21569p8 ANSI-Commercial 50u6c3b6-565o-3q50-03du-388wob2fz415 92p6y4k6-793n-9k77-43we-781zkq6yc888 ANSI-Not a Secondary Insurance 27ae5yqs-rg71-9289-dt4x-9h3b5 2x4v74l 40ym8dyu-ik72-7220-bc9q-4n4w97o2m76h ANSI-Commercial 5b7s3gi7-80p3-83jg-mp89-729746fl0b2g 3h7f7le5-37c2-24hs-uf51-007145ju0f2q ANSI-Commercial edn58299-ts00-5d10-3322-1i18gqabvc73 kem65219-xq97-2s11-9102-1n43fuwgoj10 ANSI-Not a Secondary Insurance g14s9hk1-0t1s-52b0-l0fj-pde38 303596x n50f1gi3-6s4f-64n4-a6fo-aag37588560s ANSI-Not a Secondary Insurance vm0875ab-91e9-6i39-8hog-14023 4798265 ej8524vq-60i6-8q91-2xgj-900487312396 ANSI-Commercial g6b8z995-5b85-0456-j057-1e59m3v355me o3e1b447-3i58-7549-s509-3h81o5x545yb ANSI-Not a Secondary Insurance 9r9lf2q0-1289-3502-063v-376vb j96720i 9v8yd5d7-2954-4991-428m-626sku87646f ANSI-Commercial 265z663f-5960-1237-771v-91p459itk3p7 302c699v-9037-4609-534h-89f947zoy4k3 ANSI-Not a Secondary Insurance 52931939-z31x-8jc5-mx7s-4n02c 4z16az5 [id number]-0up4-tt2w-6r27f9y75yb5 ANSI-Commercial o537m407-j2f1-9hi9-29z3-1mi81l992lt5 r698j151-c1w4-1di1-92y1-4vy90a255od5 ANSI-Not a Secondary Insurance q84m9k4s-29g5-626q-k9k3-74923 n33tp5v s40k6t3z-17e5-604x-a5z1-89770q79mh2f ANSI-Commercial 3u6gf3y4-b6x0-4982-ul28-wl436061s2zi 8n2pk6e9-r3d1-9920-kq06-lr876126z5ng ANSI-Commercial 6jrq175r-j3g2-63ol-jk26-q6oprmto7940 2jst628d-x3r8-98cw-es88-n7fekgkn9329 ANSI-Not a Secondary Insurance [id number]-k119-0349-tap7-7q91m xp857e6 90661579-b709-0825-rtl2-4k27uoe449y6 ANSI-Not a Secondary Insurance 1025emo7-ktlw-00y1-6624-e6mc6 2u648c2 5988msh4-vxxc-42j9-2362-g7ws47g132m3 ANSI-Commercial d3qn66w2-085e-91o9-g8m4-637419202169 v5iy33s8-842j-61x5-l4z5-341021334821 ANSI-Not a Secondary Insurance 2644xbv1-5pek-04r4-7m9i-3z4r7 70x7611 3218yfc3-0pti-24m8-3k5z-8x6r068r2026 ANSI-Commercial ef6wycf5-8mip-28xk-yhyn-027q8dj2qa15 wp8afwg3-8gbi-56iz-hmja-540v8sj8tg47 ANSI-Commercial e15v8696-37s3-913s-36hl-71r2ss8t2311 j91n1386-47c5-261t-94oz-35s2ju6t9725 ANSI-Not a Secondary Insurance p19l7l0q-ohge-45vd-4q7p-z0nt8 7u3g639 w14p3n3w-gnld-88gf-9g3a-u5we18f2q070 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 O [id number] O [id number] ANSI-Not a Secondary Insurance 07vt7859-75g7-3t2q-d0n8-4aed7 [id number] 45le0094-27k2-4p6l-b3b8-9sgo8b247638 ANSI-Commercial hwl3z298-bctx-2m64-426w-459531318iz1 bby3n910-koza-2e16-640b-031901019ck6 ANSI-Not a Secondary Insurance 40y9xp0n-1r52-854w-0hc4-5pq6l 6wao534 07x3lz0m-1w21-846b-8xh8-4jm8s8lka567 ANSI-Commercial 537hg0x5-v789-0455-892g-65598u6ydp32 527ud1b5-y665-3640-897w-26725d5zqm80 ANSI-Commercial p398s096-k3gy-02n7-r70a-l1i38735ksv7 n309g481-h2od-47w8-b92a-b1n15304ouz9 ANSI-Not a Secondary Insurance ni4e1qy4-y482-9970-0sg9-83p05 73d4cwp hx4z2lf3-l883-2787-8bj1-71a7343b9htz ANSI-Commercial k945r88b-1539-6c75-x3h7-8lj1sj9127b0 g774d36j-8205-9n40-e4m4-9el7nh1742f6 ANSI-Not a Secondary Insurance 91b0wk8r-l9j2-245a-1u3o-11os1 [id number] 29d6cn0b-a3y8-228c-5u9w-97aj27051854 ANSI-Commercial 349zk884-8211-6011-ev1n-k91994t0di55 044um624-3028-5655-ci9a-i89298e6vm45 ANSI-Not a Secondary Insurance 74384sct-3uen-354k-90k0-8e05i cft7xj9 11381nsx-8bic-500a-11l5-8n19onzj1pc5 ANSI-Commercial 5x40o52t-w20e-6ze1-652q-7p028b0o6861 0p61f29q-x72n-4kv3-889q-0p327c8s5971 ANSI-Not a Secondary Insurance 530r6716-9p95-53zp-f3au-33e83 489ebec 713b1205-1s13-04kh-p3rg-08h62702iglz ANSI-Not a Secondary Insurance 23217417-u6m4-7dh3-gl8m-1q315 e9d052z 10999381-a7n9-9ri8-nj1q-2c565h2y080f ANSI-Commercial 0bzd78xc-7dx5-873u-ur90-154025c9o4go 9nsq13jv-8ce0-945b-ir35-620414a8x3eh ANSI-Not a Secondary Insurance 3t20y588-pz04-490k-4n85-00raq 6g52v5c 9m67w899-wp34-826f-9p43-99tkq2y67y4m ANSI-Commercial dsh9858f-e003-25wx-8xx4-g83wfeim1t0x uzn8503w-i482-12bz-7uq0-v06sfjfe6u4n ANSI-Commercial 91tb7753-3q0m-0dsh-zj3q-t2h1v8o3x9lu 39wd1729-1i9j-9xwm-ju8n-c6i5c0b0k1he ANSI-Not a Secondary Insurance 5l9za563-4b7m-188g-2h98-1z9n8 8g02414 1j7ur918-8h1k-747k-4m15-2j8b72m28398 ANSI-Commercial 19yz2f54-3429-5ul5-9a2c-4224c96vf613 84js0k30-3755-0ss5-1s9g-8295m52nl972 ANSI-Not a Secondary Insurance w5ui08i2-ryb9-6x5v-m536-tx9us 7jln6eh p3hq20w4-zme2-0c5k-p606-sa5dx7cgh9qs ANSI-Commercial 3j0t09er-9ukr-832d-nc2r-68f1785z5a7k 5n2d17sg-7gob-824z-qj7n-36h9678l9u0v ANSI-Not a Secondary Insurance 2810469a-767u-5778-8r12-vj7i4 931ko46 0984428g-224f-0934-6y38-ay0c7642nf64 ANSI-Commercial wkd96m10-0a2q-59b5-k134-psiykna01p98 dqf61j72-5w6r-68x3-j312-ntgawvk73q30 ANSI-Not a Secondary Insurance 8w207ffb-2e82-2xmj-l687-2h885 904x738 1f806ixb-5e09-7rpe-y930-8d490131o793 ANSI-Not a Secondary Insurance 4g3jbmqr-1wot-8y8m-f6v9-w00mr [id number] 9g3wzrbs-2mba-5h8m-z8z6-k32qf7394380 ANSI-Commercial 863z3x8z-743c-5c08-x03y-1599162i65n4 337c4q2d-696s-3x57-o70g-0286985u45l3 ANSI-Not a Secondary Insurance 7y6t7r1u-h691-38ua-78w0-0372m 94dtc52 5l3w8v5d-p275-98cm-10m5-4609t78zcz80 ANSI-Commercial 8728162z-d94c-7614-9hlf-4695a2rr4x9z 2527152z-o59a-4275-7fly-0681v4xn8x8w ANSI-Commercial jd1f418s-0kv6-2py7-9f04-j9u54qu618x8 zl1p207n-1ok8-4jx3-6z85-f9u41cp208k2 ANSI-Not a Secondary Insurance 66i23kk2-9t1i-6jw9-9z07-o3s5o hsib162 26p32he3-4t7m-7bh0-2i80-j9t7bvxgj246 ANSI-Not a Secondary Insurance 6651xf73-67p4-778k-2539-9t62c y75966h 6648ey08-18l9-204a-3955-5j64hg10280y ANSI-Commercial 16o3u6h6-5947-4b18-bu42-ai18k9366534 45x6q6p1-3435-5v48-eg83-io06j6281003 ANSI-Not a Secondary Insurance 812bn21w-65zq-2r0p-9x83-3l31w 7c0a1w7 171rz57x-77rl-6o8z-8z97-9j38e5l6d6n5 ANSI-Commercial 8p55600p-4493-6471-y303-i9l5wpck3tu5 5i63723z-4112-3785-t092-o5f5onvy4xv5 [facility] B [id number] S MMF [id number] ANSI-Commercial 61qto94g-0273-8980-3993-8xp8nr0g5577 05dag98u-7950-2147-3905-0cz7gm1y9790 ANSI-Not a Secondary Insurance n8810wdc-9b10-0672-1ju8-l259x 4fqi29q y3435cis-7p53-5895-9ug4-b046z5nlu46y ANSI-Not a Secondary Insurance 52b96956-84p5-8032-08j5-70718 h3lhbv1 41k14444-73i9-4667-43m7-28211r0cmdq4 ANSI-Commercial yw47j5pi-680f-11v5-79m3-t12cyqgvk32j ka73u4co-282o-48v2-48g1-k35tcmpmk11r ANSI-Not a Secondary Insurance yqi9970j-4n14-6799-i3r7-k7249 2c95ayj apq8755b-8v15-1892-t6x7-v87598l98smk ANSI-Commercial 800d904c-4v3n-740f-lv0k-99l19hi54tp7 974x814j-4r4k-413b-ey6u-37e21bx42yo2 ANSI-Not a Secondary Insurance o207xzxz-vw6e-956r-2r04-70l1f 8zv85l2 c669qypg-il4y-819y-6v27-97y1k8ve69g3 ANSI-Commercial p25rm3l0-bkom-720x-wjd4-z023278653g4 p42sz7g5-wnhh-624z-qyv1-t758595395g7 ANSI-Not a Secondary Insurance f139hvx2-69dx-40k3-kf7g-53196 6ertu5p i064ewx5-70tc-69b5-ms6h-885844wmdm0t ANSI-Commercial xq8vr03o-8zh9-7535-m055-3lek7187320r tp6dx00s-8cr7-4949-h911-9qal6529880f ANSI-Commercial 278562k3-9r33-61vf-1x89-zv66o409i4v1 655595x7-1w90-39eq-9w74-eb90l014m0o1 ANSI-Not a Secondary Insurance 744j15xm-6r15-665h-5z7m-00032 6628y7l 726s66vt-9a27-538z-7m3m-171874100f4w ANSI-Not a Secondary Insurance db399982-u204-46iz-z234-622vx 89w345h ow647831-z267-61nr-o873-189sn88n391e ANSI-Commercial tqd58d93-0056-39c7-hq39-eke59a072590 xjt16r17-4157-00h6-ai59-paq08j632587 ANSI-Not a Secondary Insurance l72b31ls-y21k-864v-722a-4o166 s8z2807 c50m85ep-t04f-754e-545p-0m628w0u8076 ANSI-Commercial acu93bt5-vc11-9141-88jr-806a27a471a4 fsr48kb4-kl21-4649-84pw-376t70q364j1 ANSI-Commercial iy3p1ufw-s9ob-9817-88z0-vi8n8e741n7i wh0h9ldt-c4fi-5010-17o2-pk2u1e747c9g ANSI-Not a Secondary Insurance 907v9366-978n-1736-x4t4-594jm 4u1z9c3 614h3119-455d-5087-z5y6-841wy4r8q0j8 TRAVELERS- [id number] SP [id number] ANSI-Not a Secondary Insurance t3m621z5-uy9x-6u52-0551-71d6x 64b574y x9d968s1-md4p-3f30-6370-33f6i90p464h ANSI-Commercial 3078581v-793n-35nb-jgk5-xbq14m2t2c88 0056016w-723h-54et-ppu3-uay39y7e8j32 ANSI-Commercial rzx2x059-10r4-7kmz-b3ms-r7r01j7938hr ynf6z207-95x5-5yqn-w4de-v0k21x3561ii ANSI-Not a Secondary Insurance w9q31216-3y22-488z-31l8-4593n v474le8 y6b33635-6r26-259t-57a4-7343bt008gq8 ANSI-Not a Secondary Insurance 44k14350-2802-476b-1275-3e32h 88c638m 08d29884-9980-160e-7744-4r23n35t408k ANSI-Commercial 9mrgg136-t874-5158-4791-0313136dp942 4fesp829-o716-7166-4496-2158192uk811 OTHER WORKERS COMPENSATI O WCB#[id number] S WCB#[id number] ANSI-Not a Secondary Insurance u690j396-d0u1-5r64-zy90-52762 0756ebf y863f577-m2l2-1y83-vk22-157831162jaa ANSI-Commercial 76158u87-p2h8-0s47-809e-516481e6998y 08186k89-s2u8-3s67-239x-836908b6711l ANSI-Commercial 95547768-f6vc-57o6-53jp-cq9t3lzd9179 76513225-o7or-01h9-35wd-sc6g1ivi4641 ANSI-Not a Secondary Insurance 40m5mg81-2w6b-9058-1398-3825f 23qk2i1 77s4kh88-7x2o-4993-9270-4749d08pt8f8 OTHER WORKERS COMPENSATI O WCB#[id number] S WCB#[id number] TRAVELERS-WC WCB# [id number] SP WCB # [id number] 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 [id number] BS [place] Medigap Part B [id number] Self [id number] Travelers Insurance (WC) Workers Compensation [id number] Self [id number] 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 [id number] SP [id number] 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 [id number] SP [id number] [place] PPO 302/307 [id number] SP [id number] [place] 302/307 [id number] SP [id number] [place] 302/307 [id number] SP [id number] BS Of [place] [facility] ([facility]) Self EXCELLUS BCBS B [id number] S VYS [id number] BCBS [place] 304/804 [id number] SP [id number] EXCELLUS H [id number] Self [id number] BLUE CROSS BLUE SHIELD-CLINIC [id number] 18 [id number] BCBS [place] 304/804 [id number] SP [id number] SELF PAY 5 UNAVAILABLE 1 UNAVAILA BLE BLUE CROSS BLUE SHIELD-O/P [id number] BCBS OF [place] 306/8 P [id number] S [id number] Problems, Conditions, and Diagnoses Code Display Name Description Problem Type Effective Dates Data Source(s) F51.01 2727597 Primary insomnia Problem 01/28/2020 12:00:00 AM EST eCW1 ([facility]) F41.0 721503672 Panic disorder Problem 12/24/2019 12:00:00 A M EST eCW1 ([facility]) F41.9 66410181 Anxiety Problem 12/23/2019 12:00:00 AM ES T eCW1 ([facility]) 39607536 Cervical radiculopathy Cervical radiculopathy Problem 08/26/2019 12:00:00 AM EDT MEDENT ([facility], ) 471110575 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 Problem 08/26/2019 12:00:00 AM EDT MEDENT ([facility], ) 72705429 Neck pain Neck pain Problem 08/26/2019 12:00:00 AM ED T MEDENT ([facility], ) 260189130 Essential tremor Essential tremor Problem 08/26/2019 12 :00:00 AM EDT MEDENT ([facility], ) R25.1 [id number] Tremor of both hands Problem 08/25/2019 12:0 0:00 AM EDT eCW1 ([facility]) F41.9 67884617 Anxiety Problem 08/04/2019 12:00:00 AM ED T eCW1 ([facility]) M46.1 [id number] Bilateral sacroiliitis Problem 05/28/2019 12:00:00 AM EDT eCW1 ([facility]) M54.5 381603273 Low back pain Problem 05/28/2019 12:00:00 AM EDT eCW1 ([facility]) M54.5 997344295 Low back pain Problem 05/28/2019 12:00:00 AM EDT eCW1 ([facility]) M46.1 [id number] Bilateral sacroiliitis Problem 05/28/2019 12:00:00 AM EDT eCW1 ([facility]) M46.1 08714150 Sacroiliitis Problem 04/21/2019 12:00:00 AM EDT eCW1 ([facility]) E78.00 103096549 Pure hypercholesterolemia Problem 03/26/2019 12:00:00 AM EST eCW1 ([facility]) J44.9 28797098 Chronic obstructive pulmonary di sease, unspecified COPD type Problem 03/26/2019 12:00:00 AM EST eCW1 ([facility]) E78.00 363472699 Pure hypercholesterolemia Problem 03/26/2019 12:00:00 AM EST eCW1 ([facility]) J44.9 01664541 Chronic obstructive pulmonary di sease, unspecified COPD type Problem 03/26/2019 12:00:00 AM EST eCW1 ([facility]) M75.41 Impingement syndrome of right shoulder I mpingement syndrome of right shoulder Diagnosis 04/01/2019 10:41:11 AM EST [facility] 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, 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, right upper limb Diagnosis 04/01/2019 10:41:11 AM [facility] Surgeries/Procedures Procedure Description Date Indications Data Source(s) Immunization: Flublok Quadrivalent (18 years & older) 0.5mL IM (Influenza) 01/15/2020 12:00:00 AM EST eCW1 ([facility]) INJ TRIGGER POINT / MUSCL 06/24/2019 12:00:00 AM EDT eCW1 ([facility]) PHYSICIAN TELEPHONE EVALUATION 11-20 MIN 06/12/2019 12 :00:00 AM EDT eCW1 ([facility]) ESTABILISHED PATIENT [facility] FACILITY CHARGE 020 12:00:00 AM EDT eCW1 ([facility]) SURGERY CASE REQUEST OUTSIDE FACILITY ONLY SURGERY CA SE REQUEST OUTSIDE FACILITY ONLY Routine 04/01/2019 11:37 AM EST Cubital tunnel syndrome on right 04/01/2019 04:37:19 PM EST Cubital tunnel syndrome on right [facility] Cubital tunnel syndrome on right Lumbar/Sacral w/ Imaging 03/25/2019 12:00:00 AM EST eCW1 ([facility]) RADXPS IN END [id number] PXD 03/25/2019 12:00:00 AM ES T eCW1 ([facility]) Results ID Date Data Source Comprehensive Metabolic Profile (CMP) 12/18/2019 08:27:18 AM EST eCW1 ([facility]) Name Value Range Interpretation Code Description Data Abbey rce(s) Supporting Document(s) 92 GLUCOSE, FASTING eCW1 ([facility]) 15 BLOOD UREA NITROGEN eCW1 ([facility]) 1.01 CREATININE FOR GFR eCW1 ([facility]) 102 CHLORIDE LEVEL eCW1 ([facility]) 135 SODIUM LEVEL eCW1 ([facility]) 5.2 POTASSIUM SERUM eCW1 ([facility]) > 60.0 GLOMERULAR FILTRATION RATE eCW 1 ([facility]) 28 CARBON DIOXIDE LEVEL eCW1 ([facility]) 14 ALT/SGPT eCW1 ([facility]) 9 AST/SGOT eCW1 ([facility]) 9.5 CALCIUM LEVEL eCW1 ([facility]) 7.5 TOTAL PROTEIN eCW1 ([facility]) 0.3 BILIRUBIN,TOTAL eCW1 ([facility]) 101 ALKALINE PHOSPHATASE eCW1 ([facility]) 4.3 ALBUMIN eCW1 ([facility]) 1.3 ALBUMIN/GLOBULIN RATIO eCW1 ([facility]) ID Date Data Source [id number] 12/06/2019 10:45:00 AM EDT [facility] Name Value Range Interpretation Code Description Data Abbey rce(s) Supporting Document(s) SARS coronavirus 2 RNA [facility] This lab was ordered by [facility] and reported by [facility]. ID Date Data Source [facility] FLUORO GUIDE SPINE INJECTION (PAIN) 11/12/2019 05:47:51 AM EDT eCW1 ([facility]) Name Value Range Interpretation Code Description Data Abbey rce(s) Supporting Document(s) [facility] FLUORO GUIDE SPINE IN JECTION (PAIN) eCW1 ([facility]) ID Date Data Source [id number] 11/07/2019 10:00:00 AM EDT [facility] Name Value Range Interpretation Code Description Data Abbey rce(s) Supporting Document(s) SARS coronavirus 2 RNA [facility] This lab was ordered by [facility] and reported by [facility]. ID Date Data Source [id number] 07/11/2019 11:25:00 AM EDT [facility] Name Value Range Interpretation Code Description Data Abbey rce(s) Supporting Document(s) SARS CORONAVIRUS 2 RNA [facility] This lab was ordered by [facility] and reported by [facility]. ID Date Data Source [id number] 04/04/2019 03:33:54 PM [facility] Name Value Range Interpretation Code Description Data Abbey rce(s) Supporting Document(s) Progress Note [facility] DKHZPa5lAxSPLmXb93/EFZryBYScw7RuIAxcCQu9SIkjFSPiB6SfWZD0zR0zWCM4ENvDFgWbMnNpCdPg lbm [file] [id number] Procedure Social History Code Duration Value Status Description Data Source(s ) Smoking 02/16/2020 12:00:00 AM EST Current Smoker completed Curre nt Smoker eCW1 ([facility]) Smoking 02/16/2020 12:00:00 AM EST Current Smoker completed Curre nt Smoker eCW1 ([facility]) Smoking 02/16/2020 12:00:00 AM EST Current Smoker completed Curre nt Smoker eCW1 ([facility]) Smoking 01/28/2020 12:00:00 AM EST Current Smoker completed Curre nt Smoker eCW1 ([facility]) Smoking 01/28/2020 12:00:00 AM EST Current Smoker completed Curre nt Smoker eCW1 ([facility]) Smoking 01/28/2020 12:00:00 AM EST Current Smoker completed Curre nt Smoker eCW1 ([facility]) Smoking 01/28/2020 12:00:00 AM EST Current Smoker completed Curre nt Smoker eCW1 ([facility]) Smoking 01/28/2020 12:00:00 AM EST Current Smoker completed Curre nt Smoker eCW1 ([facility]) Smoking 01/28/2020 12:00:00 AM EST Current Smoker completed Curre nt Smoker eCW1 ([facility]) Smoking 01/15/2020 12:00:00 AM EST Current Smoker completed Curre nt Smoker eCW1 ([facility]) Smoking 01/15/2020 12:00:00 AM EST Current Smoker completed Curre nt Smoker eCW1 ([facility]) Smoking 01/15/2020 12:00:00 AM EST Current Smoker completed Curre nt Smoker eCW1 ([facility]) Smoking 01/15/2020 12:00:00 AM EST Current Smoker completed Curre nt Smoker eCW1 ([facility]) Smoking 01/15/2020 12:00:00 AM EST Current Smoker completed Curre nt Smoker eCW1 ([facility]) Smoking 01/15/2020 12:00:00 AM EST Current Smoker completed Curre nt Smoker eCW1 ([facility]) Smoking 01/15/2020 12:00:00 AM EST Current Smoker completed Curre nt Smoker eCW1 ([facility]) Smoking 01/15/2020 12:00:00 AM EST Current Smoker completed Curre nt Smoker eCW1 ([facility]) Smoking 01/15/2020 12:00:00 AM EST Current Smoker completed Curre nt Smoker eCW1 ([facility]) Smoking 01/15/2020 12:00:00 AM EST Current Smoker completed Curre nt Smoker eCW1 ([facility]) Smoking 01/15/2020 12:00:00 AM EST Current Smoker completed Curre nt Smoker eCW1 ([facility]) Smoking 01/15/2020 12:00:00 AM EST Current Smoker completed Curre nt Smoker eCW1 ([facility]) Smoking 01/15/2020 12:00:00 AM EST Current Smoker completed Curre nt Smoker eCW1 ([facility]) Smoking 01/15/2020 12:00:00 AM EST Current Smoker completed Curre nt Smoker eCW1 ([facility]) Smoking 12/24/2019 12:00:00 AM EST Current Smoker completed Curre nt Smoker eCW1 ([facility]) Smoking 12/24/2019 12:00:00 AM EST Current Smoker completed Curre nt Smoker eCW1 ([facility]) Smoking 12/24/2019 12:00:00 AM EST Current Smoker completed Curre nt Smoker eCW1 ([facility]) Smoking 12/24/2019 12:00:00 AM EST Current Smoker completed Curre nt Smoker eCW1 ([facility]) Smoking 12/24/2019 12:00:00 AM EST Current Smoker completed Curre nt Smoker eCW1 ([facility]) Smoking 12/24/2019 12:00:00 AM EST Current Smoker completed Curre nt Smoker eCW1 ([facility]) Smoking 12/24/2019 12:00:00 AM EST Current Smoker completed Curre nt Smoker eCW1 ([facility]) Smoking 12/24/2019 12:00:00 AM EST Current Smoker completed Curre nt Smoker eCW1 ([facility]) Smoking 12/24/2019 12:00:00 AM EST Current Smoker completed Curre nt Smoker eCW1 ([facility]) Smoking 12/24/2019 12:00:00 AM EST Current Smoker completed Curre nt Smoker eCW1 ([facility]) Smoking 12/24/2019 12:00:00 AM EST Current Smoker completed Curre nt Smoker eCW1 ([facility]) Smoking 12/24/2019 12:00:00 AM EST Current Smoker completed Curre nt Smoker eCW1 ([facility]) Smoking 12/24/2019 12:00:00 AM EST Current Smoker completed Curre nt Smoker eCW1 ([facility]) Smoking 12/24/2019 12:00:00 AM EST Current Smoker completed Curre nt Smoker eCW1 ([facility]) Smoking 12/24/2019 12:00:00 AM EST Current Smoker completed Curre nt Smoker eCW1 ([facility]) Smoking 12/24/2019 12:00:00 AM EST Current Smoker completed Curre nt Smoker eCW1 ([facility]) Smoking 12/24/2019 12:00:00 AM EST Current Smoker completed Curre nt Smoker eCW1 ([facility]) Smoking 12/24/2019 12:00:00 AM EST Current Smoker completed Curre nt Smoker eCW1 ([facility]) Smoking 12/24/2019 12:00:00 AM EST Current Smoker completed Curre nt Smoker eCW1 ([facility]) Smoking 12/24/2019 12:00:00 AM EST Current Smoker completed Curre nt Smoker eCW1 ([facility]) Smoking 12/24/2019 12:00:00 AM EST Current Smoker completed Curre nt Smoker eCW1 ([facility]) Smoking 12/24/2019 12:00:00 AM EST Current Smoker completed Curre nt Smoker eCW1 ([facility]) Smoking 12/24/2019 12:00:00 AM EST Current Smoker completed Curre nt Smoker eCW1 ([facility]) Smoking 12/24/2019 12:00:00 AM EST Current Smoker completed Curre nt Smoker eCW1 ([facility]) Smoking 12/24/2019 12:00:00 AM EST Current Smoker completed Curre nt Smoker eCW1 ([facility]) Smoking 12/22/2019 12:00:00 AM EST Current Smoker completed Curre nt Smoker eCW1 ([facility]) Smoking 12/22/2019 12:00:00 AM EST Current Smoker completed Curre nt Smoker eCW1 ([facility]) Smoking 12/22/2019 12:00:00 AM EST Current Smoker completed Curre nt Smoker eCW1 ([facility]) Smoking 12/18/2019 12:00:00 AM EST Current Smoker completed Curre nt Smoker eCW1 ([facility]) Smoking 12/18/2019 12:00:00 AM EST Current Smoker completed Curre nt Smoker eCW1 ([facility]) Smoking 12/18/2019 12:00:00 AM EST Current Smoker completed Curre nt Smoker eCW1 ([facility]) Smoking 12/18/2019 12:00:00 AM EST Current Smoker completed Curre nt Smoker eCW1 ([facility]) Smoking 12/18/2019 12:00:00 AM EST Current Smoker completed Curre nt Smoker eCW1 ([facility]) Smoking 12/18/2019 12:00:00 AM EST Current Smoker completed Curre nt Smoker eCW1 ([facility]) Smoking 12/11/2019 12:00:00 AM EDT Current Smoker completed Curre nt Smoker eCW1 ([facility]) Smoking 12/11/2019 12:00:00 AM EDT Current Smoker completed Curre nt Smoker eCW1 ([facility]) Smoking 12/11/2019 12:00:00 AM EDT Current Smoker completed Curre nt Smoker eCW1 ([facility]) Smoking 12/11/2019 12:00:00 AM EDT Current Smoker completed Curre nt Smoker eCW1 ([facility]) Smoking 12/09/2019 12:00:00 AM EDT Current Smoker completed Curre nt Smoker eCW1 ([facility]) Smoking 11/30/2019 12:00:00 AM EDT Current Smoker completed Curre nt Smoker eCW1 ([facility]) Smoking 11/30/2019 12:00:00 AM EDT Current Smoker completed Curre nt Smoker eCW1 ([facility]) Smoking 11/30/2019 12:00:00 AM EDT Current Smoker completed Curre nt Smoker eCW1 ([facility]) Smoking 11/30/2019 12:00:00 AM EDT Current Smoker completed Curre nt Smoker eCW1 ([facility]) Smoking 11/30/2019 12:00:00 AM EDT Current Smoker completed Curre nt Smoker eCW1 ([facility]) Smoking 11/30/2019 12:00:00 AM EDT Current Smoker completed Curre nt Smoker eCW1 ([facility]) Smoking 11/24/2019 12:00:00 AM EDT Current Smoker completed Curre nt Smoker eCW1 ([facility]) Smoking 11/12/2019 12:00:00 AM EDT Current Smoker completed Curre nt Smoker eCW1 ([facility]) Smoking 11/12/2019 12:00:00 AM EDT Current Smoker completed Curre nt Smoker eCW1 ([facility]) Smoking 09/04/2019 12:00:00 AM EDT Current Smoker completed Curre nt Smoker eCW1 ([facility]) Smoking 09/04/2019 12:00:00 AM EDT Current Smoker completed Curre nt Smoker eCW1 ([facility]) Smoking 09/04/2019 12:00:00 AM EDT Current Smoker completed Curre nt Smoker eCW1 ([facility]) Smoking 09/04/2019 12:00:00 AM EDT Current Smoker completed Curre nt Smoker eCW1 ([facility]) Smoking 09/04/2019 12:00:00 AM EDT Current Smoker completed Curre nt Smoker eCW1 ([facility]) Smoking 09/04/2019 12:00:00 AM EDT Current Smoker completed Curre nt Smoker eCW1 ([facility]) Smoking 09/04/2019 12:00:00 AM EDT Current Smoker completed Curre nt Smoker eCW1 ([facility]) Smoking 08/31/2019 12:00:00 AM EDT Current Smoker completed Curre nt Smoker eCW1 ([facility]) Smoking 08/31/2019 12:00:00 AM EDT Current Smoker completed Curre nt Smoker eCW1 ([facility]) Smoking 08/31/2019 12:00:00 AM EDT Current Smoker completed Curre nt Smoker eCW1 ([facility]) Smoking 08/25/2019 12:00:00 AM EDT Current Smoker completed Curre nt Smoker eCW1 ([facility]) Smoking 08/25/2019 12:00:00 AM EDT Current Smoker completed Curre nt Smoker eCW1 ([facility]) Smoking 08/25/2019 12:00:00 AM EDT Current Smoker completed Curre nt Smoker eCW1 ([facility]) Smoking 08/25/2019 12:00:00 AM EDT Current Smoker completed Curre nt Smoker eCW1 ([facility]) Smoking 08/25/2019 12:00:00 AM EDT Current Smoker completed Curre nt Smoker eCW1 ([facility]) Smoking 08/04/2019 12:00:00 AM EDT Current Smoker completed Curre nt Smoker eCW1 ([facility]) Smoking 07/13/2019 12:00:00 AM EDT Current Smoker completed Curre nt Smoker eCW1 ([facility]) Smoking 07/13/2019 12:00:00 AM EDT Current Smoker completed Curre nt Smoker eCW1 ([facility]) Smoking 07/13/2019 12:00:00 AM EDT Current Smoker completed Curre nt Smoker eCW1 ([facility]) Smoking 07/13/2019 12:00:00 AM EDT Current Smoker completed Curre nt Smoker eCW1 ([facility]) Alcohol intake 04/04/2019 12:00:00 AM EST Current non-d alma of alcohol (finding) completed Current non-drinker of alcohol (finding) [facility] Cigarette pack-years 04/04/2019 12:00:00 AM EST UNK completed [facility] Cigarettes smoked current (pack per day) - Reported 04/04/19 12:00:00 AM EST UNK completed [facility] Smoking 04/04/2019 12:00:00 AM EST Current every day smoker co mpleted Current every day smoker [facility] Vital Signs ID Date Data Source UNK Name Value Range Interpretation Code Description Data Source(s) Diastolic blood pressure 84 mm[Hg] 84 mm[Hg] eCW1 ([facility]) Systolic blood pressure 130 mm[Hg] 130 mm[Hg] e CW1 ([facility]) Body temperature 97.5 [degF] 97.5 [degF] eCW1 ( [facility]) Respiratory rate 18 /min 18 /min eCW1 ([facility]) Heart rate 102 /min 102 /min eCW1 ([facility]) Body mass index (BMI) [Ratio] 23.03 kg/m2 23.03 kg/m2 eCW1 ([facility]) Body height 69 [in_i] 69 [in_i] eCW1 ([facility]) Body weight 156 [lb_av] 156 [lb_av] eCW1 ([facility]) Diastolic blood pressure 78 mm[Hg] 78 mm[Hg] eCW1 ([facility]) Systolic blood pressure 132 mm[Hg] 132 mm[Hg] e CW1 ([facility]) Body temperature 98.0 [degF] 98.0 [degF] eCW1 ( [facility]) Respiratory rate 18 /min 18 /min eCW1 ([facility]) Heart rate 99 /min 99 /min eCW1 ([facility]) Body mass index (BMI) [Ratio] 23.33 kg/m2 23.33 kg/m2 eCW1 ([facility]) Body height 69 [in_i] 69 [in_i] eCW1 ([facility]) Body weight 158 [lb_av] 158 [lb_av] eCW1 ([facility]) Diastolic blood pressure 90 mm[Hg] 90 mm[Hg] eCW1 ([facility]) Systolic blood pressure 140 mm[Hg] 140 mm[Hg] e CW1 ([facility]) Body temperature [degF] eCW1 ([facility]) Respiratory rate 18 /min 18 /min eCW1 ([facility]) Heart rate 112 /min 112 /min eCW1 ([facility]) Body mass index (BMI) [Ratio] 23.18 kg/m2 23.18 kg/m2 eCW1 ([facility]) Body height 69 [in_i] 69 [in_i] eCW1 ([facility]) Body weight 157 [lb_av] 157 [lb_av] eCW1 ([facility]) Diastolic blood pressure 80 mm[Hg] 80 mm[Hg] eCW1 ([facility]) Systolic blood pressure 130 mm[Hg] 130 mm[Hg] e CW1 ([facility]) Body temperature 98.2 [degF] 98.2 [degF] eCW1 ( [facility]) Respiratory rate 18 /min 18 /min eCW1 ([facility]) Heart rate 104 /min 104 /min eCW1 ([facility]) Body mass index (BMI) [Ratio] 23.45 kg/m2 23.45 kg/m2 eCW1 ([facility]) Body height 69 [in_i] 69 [in_i] eCW1 ([facility]) Body weight 158.8 [lb_av] 158.8 [lb_av] eCW1 ([facility]) Diastolic blood pressure 100 mm[Hg] 100 mm[Hg] eCW1 ([facility]) Systolic blood pressure 150 mm[Hg] 150 mm[Hg] e CW1 ([facility]) Body temperature 98.2 [degF] 98.2 [degF] eCW1 ( [facility]) Respiratory rate 18 /min 18 /min eCW1 ([facility]) Heart rate 92 /min 92 /min eCW1 ([facility]) Body mass index (BMI) [Ratio] 23.74 kg/m2 23.74 kg/m2 W1 ([facility]) Body height 69 [in_i] 69 [in_i] eCW1 ([facility]) Body weight 160.8 [lb_av] 160.8 [lb_av] eCW1 ([facility]) Diastolic blood pressure 98 mm[Hg] 98 mm[Hg] eCW1 ([facility]) Systolic blood pressure 146 mm[Hg] 146 mm[Hg] e CW1 ([facility]) Body temperature 97.6 [degF] 97.6 [degF] eCW1 ( [facility]) Respiratory rate 18 /min 18 /min eCW1 ([facility]) Heart rate 75 /min 75 /min eCW1 ([facility]) Body mass index (BMI) [Ratio] 23.86 kg/m2 23.86 kg/m2 eCW1 ([facility]) Body height 69 [in_i] 69 [in_i] eCW1 ([facility]) Body weight 161.6 [lb_av] 161.6 [lb_av] eCW1 ([facility]) Diastolic blood pressure 93 mm[Hg] 93 mm[Hg] eCW1 ([facility]) Systolic blood pressure 136 mm[Hg] 136 mm[Hg] e CW1 ([facility]) Body temperature 98.6 [degF] 98.6 [degF] eCW1 ( [facility]) Respiratory rate 16 /min 16 /min eCW1 ([facility]) Heart rate 69 /min 69 /min eCW1 ([facility]) Body mass index (BMI) [Ratio] 23.63 kg/m2 23.63 kg/m2 eCW1 ([facility]) Body height 69 [in_i] 69 [in_i] eCW1 ([facility]) Body weight 160 [lb_av] 160 [lb_av] eCW1 ([facility]) Diastolic blood pressure 96 mm[Hg] 96 mm[Hg] eCW1 ([facility]) Systolic blood pressure 148 mm[Hg] 148 mm[Hg] e CW1 ([facility]) Body temperature 98.3 [degF] 98.3 [degF] eCW1 ( [facility]) Respiratory rate 18 /min 18 /min eCW1 ([facility]) Heart rate 73 /min 73 /min eCW1 ([facility]) Body mass index (BMI) [Ratio] 23.42 kg/m2 23.42 kg/m2 eCW1 ([facility]) Body height 69 [in_i] 69 [in_i] eCW1 ([facility]) Body weight 158.6 [lb_av] 158.6 [lb_av] eCW1 ([facility]) Diastolic blood pressure 80 mm[Hg] 80 mm[Hg] eCW1 ([facility]) Systolic blood pressure 120 mm[Hg] 120 mm[Hg] e CW1 ([facility]) Body temperature 97.8 [degF] 97.8 [degF] eCW1 ( [facility]) Respiratory rate 18 /min 18 /min eCW1 ([facility]) Heart rate 103 /min 103 /min eCW1 ([facility]) Body mass index (BMI) [Ratio] 24.19 kg/m2 24.19 kg/m2 eCW1 ([facility]) Body height 69 [in_i] 69 [in_i] eCW1 ([facility]) Body weight 163.8 [lb_av] 163.8 [lb_av] eCW1 ([facility]) Diastolic blood pressure 84 mm[Hg] 84 mm[Hg] eCW1 ([facility]) Systolic blood pressure 198 mm[Hg] 198 mm[Hg] e CW1 ([facility]) Body temperature 97.0 [degF] 97.0 [degF] eCW1 ( [facility]) Respiratory rate 18 /min 18 /min eCW1 ([facility]) Heart rate 89 /min 89 /min eCW1 ([facility]) Body mass index (BMI) [Ratio] 24.25 kg/m2 24.25 kg/m2 W1 ([facility]) Body height 69 [in_i] 69 [in_i] eCW1 ([facility]) Body weight 164.2 [lb_av] 164.2 [lb_av] eCW1 ([facility]) Body mass index (BMI) [Ratio] 24.9 kg/m2 24.9 k g/m2 MEDENT ([facility] ) Body weight 164.00 [lb_av] 164.00 [lb_av] MEDEN T ([facility] ) Body height 68 [in_i] 68 [in_i] MEDENT ([facility] ) 5'8" Respiratory rate 14 /min 14 /min MEDENT ( [facility] ) Heart rate 78 /min 78 /min MEDENT ([facility]) Diastolic blood pressure 80 mm[Hg] 80 mm[Hg] MEDENT ([facility]) Systolic blood pressure 120 mm[Hg] 120 mm[Hg] M EDENT ([facility] ) Diastolic blood pressure 82 mm[Hg] 82 mm[Hg] eCW1 ([facility]) Systolic blood pressure 120 mm[Hg] 120 mm[Hg] e CW1 ([facility]) Body temperature 98 [degF] 98 [degF] eCW1 ([facility]) Respiratory rate 18 /min 18 /min eCW1 ([facility]) Heart rate 125 /min 125 /min eCW1 ([facility]) Body mass index (BMI) [Ratio] 24.19 kg/m2 24.19 kg/m2 W1 ([facility]) Body height 69 [in_i] 69 [in_i] eCW1 ([facility]) Body weight 163.8 [lb_av] 163.8 [lb_av] eCW1 ([facility]) Diastolic blood pressure 78 mm[Hg] 78 mm[Hg] eCW1 ([facility]) Systolic blood pressure 130 mm[Hg] 130 mm[Hg] e CW1 ([facility]) Body temperature 98.5 [degF] 98.5 [degF] eCW1 ( [facility]) Respiratory rate 18 /min 18 /min eCW1 ([facility]) Heart rate 102 /min 102 /min eCW1 ([facility]) Body mass index (BMI) [Ratio] 24.57 kg/m2 24.57 kg/m2 eCW1 ([facility]) Body height 69 [in_i] 69 [in_i] eCW1 ([facility]) Body weight 166.4 [lb_av] 166.4 [lb_av] eCW1 ([facility]) Diastolic blood pressure 70 mm[Hg] 70 mm[Hg] eCW1 ([facility]) Systolic blood pressure 110 mm[Hg] 110 mm[Hg] e CW1 ([facility]) Body temperature 97.3 [degF] 97.3 [degF] eCW1 ( [facility]) Respiratory rate 18 /min 18 /min eCW1 ([facility]) Heart rate 107 /min 107 /min eCW1 ([facility]) Body mass index (BMI) [Ratio] 24.22 kg/m2 24.22 kg/m2 eCW1 ([facility]) Body height 69 [in_i] 69 [in_i] eCW1 ([facility]) Body weight 164 [lb_av] 164 [lb_av] eCW1 ([facility]) Diastolic blood pressure 85 mm[Hg] 85 mm[Hg] eCW1 ([facility]) Systolic blood pressure 112 mm[Hg] 112 mm[Hg] e CW1 ([facility]) Body temperature 98.3 [degF] 98.3 [degF] eCW1 ( [facility]) Respiratory rate 18 /min 18 /min eCW1 ([facility]) Heart rate 107 /min 107 /min eCW1 ([facility]) Body mass index (BMI) [Ratio] 23.95 kg/m2 23.95 kg/m2 eCW1 ([facility]) Body height 69 [in_i] 69 [in_i] eCW1 ([facility]) Body weight 162.2 [lb_av] 162.2 [lb_av] eCW1 ([facility]) Diastolic blood pressure 88 mm[Hg] 88 mm[Hg] eCW1 ([facility]) Systolic blood pressure 135 mm[Hg] 135 mm[Hg] e CW1 ([facility]) Body temperature 97.5 [degF] 97.5 [degF] eCW1 ( [facility]) Respiratory rate 18 /min 18 /min eCW1 ([facility]) Heart rate 86 /min 86 /min eCW1 ([facility]) Body mass index (BMI) [Ratio] 24.22 kg/m2 24.22 kg/m2 eCW1 ([facility]) Body height 69 [in_us] 69 [in_us] eCW1 ([facility]) Body weight Measured 164 [lb_av] 164 [lb_av] eC W1 ([facility]) Diastolic blood pressure 86 mm[Hg] 86 mm[Hg] eCW1 ([facility]) Systolic blood pressure 131 mm[Hg] 131 mm[Hg] e CW1 ([facility]) Body temperature 97.9 [degF] 97.9 [degF] eCW1 ( [facility]) Respiratory rate 16 /min 16 /min eCW1 ([facility]) Heart rate 93 /min 93 /min eCW1 ([facility]) Body mass index (BMI) [Ratio] 24.22 kg/m2 24.22 kg/m2 W1 ([facility]) Body height 69 [in_us] 69 [in_us] eCW1 ([facility]) Body weight Measured 164 [lb_av] 164 [lb_av] eC W1 ([facility]) Diastolic blood pressure 94 mm[Hg] 94 mm[Hg] eCW1 ([facility]) Systolic blood pressure 137 mm[Hg] 137 mm[Hg] e CW1 ([facility]) Body temperature 98.5 [degF] 98.5 [degF] eCW1 ( [facility]) Respiratory rate 16 /min 16 /min eCW1 ([facility]) Heart rate 90 /min 90 /min eCW1 ([facility]) Body mass index (BMI) [Ratio] 24.22 kg/m2 24.22 kg/m2 eCW1 ([facility]) Body height 69 [in_us] 69 [in_us] eCW1 ([facility]) Body weight Measured 164 [lb_av] 164 [lb_av] eC W1 ([facility]) Diastolic blood pressure 76 mm[Hg] 76 mm[Hg] eCW1 ([facility]) Systolic blood pressure 132 mm[Hg] 132 mm[Hg] e CW1 ([facility]) Body temperature 97.9 [degF] 97.9 [degF] eCW1 ( [facility]) Respiratory rate 18 /min 18 /min eCW1 ([facility]) Heart rate 81 /min 81 /min eCW1 ([facility]) Body mass index (BMI) [Ratio] 24.36 kg/m2 24.36 kg/m2 eCW1 ([facility]) Body height 69 [in_us] 69 [in_us] eCW1 ([facility]) Body weight Measured 165 [lb_av] 165 [lb_av] eC W1 ([facility]) Diastolic blood pressure 86 mm[Hg] 86 mm[Hg] eCW1 ([facility]) Systolic blood pressure 138 mm[Hg] 138 mm[Hg] e CW1 ([facility]) Body temperature 97.1 [degF] 97.1 [degF] eCW1 ( [facility]) Respiratory rate 18 /min 18 /min eCW1 ([facility]) Heart rate 77 /min 77 /min eCW1 ([facility]) Body mass index (BMI) [Ratio] 24.36 kg/m2 24.36 kg/m2 eCW1 ([facility]) Body height 69 [in_us] 69 [in_us] eCW1 ([facility]) Body weight Measured 165.0 [lb_av] 165.0 [lb_av ] eCW1 ([facility]) Diastolic blood pressure 91 mm[Hg] 91 mm[Hg] eCW1 ([facility]) Systolic blood pressure 145 mm[Hg] 145 mm[Hg] e CW1 ([facility]) Body temperature 97.9 [degF] 97.9 [degF] eCW1 ( [facility]) Respiratory rate 18 /min 18 /min eCW1 ([facility]) Heart rate 76 /min 76 /min eCW1 ([facility]) Body mass index (BMI) [Ratio] 24.13 kg/m2 24.13 kg/m2 eCW1 ([facility]) Body height 69 [in_us] 69 [in_us] eCW1 ([facility]) Body weight Measured 163.4 [lb_av] 163.4 [lb_av ] eCW1 ([facility]) Diastolic blood pressure 101 mm[Hg] 101 mm[Hg] eCW1 ([facility]) Systolic blood pressure 141 mm[Hg] 141 mm[Hg] e CW1 ([facility]) Body temperature 97.9 [degF] 97.9 [degF] eCW1 ( [facility]) Respiratory rate 18 /min 18 /min eCW1 ([facility]) Heart rate 82 /min 82 /min eCW1 ([facility]) Body mass index (BMI) [Ratio] 24.13 kg/m2 24.13 kg/m2 eCW1 ([facility]) Body height 69 [in_us] 69 [in_us] eCW1 ([facility]) Body weight Measured 163.4 [lb_av] 163.4 [lb_av ] eCW1 ([facility]) Diastolic blood pressure 84 mm[Hg] 84 mm[Hg] eCW1 ([facility]) Systolic blood pressure 120 mm[Hg] 120 mm[Hg] e CW1 ([facility]) Body temperature 97.2 [degF] 97.2 [degF] eCW1 ( [facility]) Respiratory rate 18 /min 18 /min eCW1 ([facility]) Heart rate 95 /min 95 /min eCW1 ([facility]) Body mass index (BMI) [Ratio] 23.60 kg/m2 23.60 kg/m2 eCW1 ([facility]) Body height 69 [in_us] 69 [in_us] eCW1 ([facility]) Body weight Measured 159.8 [lb_av] 159.8 [lb_av ] eCW1 ([facility]) ID Date Data Source [id number] 06/01/2019 11:45:02 AM [facility] Name Value Range Interpretation Code Description Data Source(s) WEIGHT RECORDED 165 lb 165 lb [facility] Body height Measured 69 in 69 in [facility] Patient Treatment Plan of Care Planned Activity Planned Date Details Description Data Source (s) Morphine Sulfate 15 MG Oral Tablet 02/23/2020 12:00:00 AM EST eCW1 ([facility]) Acetaminophen 325 MG / Oxycodone Hydrochloride 10 MG O ral Tablet [Percocet] 02/23/2020 12:00:00 AM EST eCW1 ([facility]) Morphine Sulfate 15 MG Oral Tablet 02/23/2020 12:00:00 AM EST eCW1 ([facility]) Acetaminophen 325 MG / Oxycodone Hydrochloride 10 MG O ral Tablet [Percocet] 02/23/2020 12:00:00 AM EST eCW1 ([facility]) Morphine Sulfate 15 MG Oral Tablet 02/23/2020 12:00:00 AM EST eCW1 ([facility]) Acetaminophen 325 MG / Oxycodone Hydrochloride 10 MG O ral Tablet [Percocet] 02/23/2020 12:00:00 AM EST eCW1 ([facility]) Budesonide 180 MCG/ACT 02/16/2020 12:00:00 AM EST eCW1 ([facility]) Budesonide 180 MCG/ACT 02/16/2020 12:00:00 AM EST eCW1 ([facility]) Budesonide 180 MCG/ACT 02/16/2020 12:00:00 AM EST eCW1 ([facility]) Albuterol 0.833 MG/ML / Ipratropium Arab 0.167 MG/M L Inhalant Solution 01/28/2020 12:00:00 AM EST eCW1 ([facility]) Albuterol 0.833 MG/ML / Ipratropium Arab 0.167 MG/M L Inhalant Solution 01/28/2020 12:00:00 AM EST eCW1 ([facility]) Albuterol 0.833 MG/ML / Ipratropium Arab 0.167 MG/M L Inhalant Solution 01/28/2020 12:00:00 AM EST eCW1 ([facility]) Albuterol 0.833 MG/ML / Ipratropium Arab 0.167 MG/M L Inhalant Solution 01/28/2020 12:00:00 AM EST eCW1 ([facility]) Albuterol 0.833 MG/ML / Ipratropium Arab 0.167 MG/M L Inhalant Solution 01/28/2020 12:00:00 AM EST eCW1 ([facility]) Albuterol 0.833 MG/ML / Ipratropium Arab 0.167 MG/M L Inhalant Solution 01/28/2020 12:00:00 AM EST eCW1 ([facility]) Morphine Sulfate ER 15 MG 01/27/2020 12:00:00 AM EST eCW1 ([facility]) Morphine Sulfate 15 MG Extended Release Oral Tablet 01/27/20 12:00:00 AM EST eCW1 ([facility]) Morphine Sulfate 15 MG Oral Tablet 01/27/2020 12:00:00 AM EST eCW1 ([facility]) Morphine Sulfate ER 15 MG 01/27/2020 12:00:00 AM EST eCW1 ([facility]) Morphine Sulfate 15 MG Extended Release Oral Tablet 01/27/20 12:00:00 AM EST eCW1 ([facility]) Morphine Sulfate 15 MG Oral Tablet 01/27/2020 12:00:00 AM EST eCW1 ([facility]) Morphine Sulfate ER 15 MG 01/26/2020 12:00:00 AM EST eCW1 ([facility]) Acetaminophen 325 MG / Oxycodone Hydrochloride 10 MG O ral Tablet [Percocet] 01/22/2020 12:00:00 AM EST eCW1 ([facility]) Acetaminophen 325 MG / Oxycodone Hydrochloride 10 MG O ral Tablet [Percocet] 01/22/2020 12:00:00 AM EST eCW1 ([facility]) Acetaminophen 325 MG / Oxycodone Hydrochloride 10 MG O ral Tablet [Percocet] 01/22/2020 12:00:00 AM EST eCW1 ([facility]) Acetaminophen 325 MG / Oxycodone Hydrochloride 10 MG O ral Tablet [Percocet] 01/22/2020 12:00:00 AM EST eCW1 ([facility]) Acetaminophen 325 MG / Oxycodone Hydrochloride 10 MG O ral Tablet [Percocet] 01/22/2020 12:00:00 AM EST eCW1 ([facility]) Acetaminophen 325 MG / Oxycodone Hydrochloride 10 MG O ral Tablet [Percocet] 01/22/2020 12:00:00 AM EST eCW1 ([facility]) Acetaminophen 325 MG / Oxycodone Hydrochloride 10 MG O ral Tablet [Percocet] 01/22/2020 12:00:00 AM EST eCW1 ([facility]) Morphine Sulfate ER 15 MG 01/20/2020 12:00:00 AM EST eCW1 ([facility]) Morphine Sulfate ER 15 MG 01/20/2020 12:00:00 AM EST eCW1 ([facility]) Morphine Sulfate ER 15 MG 01/20/2020 12:00:00 AM EST eCW1 ([facility]) Morphine Sulfate ER 15 MG 01/20/2020 12:00:00 AM EST eCW1 ([facility]) Morphine Sulfate ER 15 MG 01/20/2020 12:00:00 AM EST eCW1 ([facility]) Morphine Sulfate ER 15 MG 01/20/2020 12:00:00 AM EST eCW1 ([facility]) Morphine Sulfate ER 15 MG 01/20/2020 12:00:00 AM EST eCW1 ([facility]) duloxetine 30 MG Delayed Release Oral Capsule [Cymbalt a] 01/13/2020 12:00:00 AM EST eCW1 ([facility]) Spiriva Respimat 1.25 MCG/ACT 12/29/2019 12:00:00 AM EST eCW1 ([facility]) Spiriva Respimat 1.25 MCG/ACT 12/29/2019 12:00:00 AM EST eCW1 ([facility]) Spiriva Respimat 1.25 MCG/ACT 12/29/2019 12:00:00 AM EST eCW1 ([facility]) Spiriva Respimat 1.25 MCG/ACT 12/29/2019 12:00:00 AM EST eCW1 ([facility]) Spiriva Respimat 1.25 MCG/ACT 12/29/2019 12:00:00 AM EST eCW1 ([facility]) Spiriva Respimat 1.25 MCG/ACT 12/29/2019 12:00:00 AM EST eCW1 ([facility]) Spiriva Respimat 1.25 MCG/ACT 12/29/2019 12:00:00 AM EST eCW1 ([facility]) Spiriva Respimat 1.25 MCG/ACT 12/29/2019 12:00:00 AM EST eCW1 ([facility]) Spiriva Respimat 1.25 MCG/ACT 12/29/2019 12:00:00 AM EST eCW1 ([facility]) Spiriva Respimat 1.25 MCG/ACT 12/29/2019 12:00:00 AM EST eCW1 ([facility]) Acetaminophen 325 MG / Oxycodone Hydrochloride 10 MG O ral Tablet [Percocet] 12/22/2019 12:00:00 AM EST eCW1 ([facility]) Omeprazole 40 MG Delayed Release Oral Capsule 12/22/2019 12:00:00 A M EST eCW1 ([facility]) Sucralfate 1000 MG Oral Tablet 12/22/2019 12:00:00 AM EST eCW1 ([facility]) Acetaminophen 325 MG / Oxycodone Hydrochloride 10 MG O ral Tablet [Percocet] 12/22/2019 12:00:00 AM EST eCW1 ([facility]) Omeprazole 40 MG Delayed Release Oral Capsule 12/22/2019 12:00:00 A M EST eCW1 ([facility]) Sucralfate 1000 MG Oral Tablet 12/22/2019 12:00:00 AM EST eCW1 ([facility]) Acetaminophen 325 MG / Oxycodone Hydrochloride 10 MG O ral Tablet [Percocet] 12/22/2019 12:00:00 AM EST eCW1 ([facility]) Sucralfate 1000 MG Oral Tablet 12/22/2019 12:00:00 AM EST eCW1 ([facility]) Omeprazole 40 MG Delayed Release Oral Capsule 12/22/2019 12:00:00 A M EST eCW1 ([facility]) Acetaminophen 325 MG / Oxycodone Hydrochloride 10 MG O ral Tablet [Percocet] 12/22/2019 12:00:00 AM EST eCW1 ([facility]) Sucralfate 1000 MG Oral Tablet 12/22/2019 12:00:00 AM EST eCW1 ([facility]) Omeprazole 40 MG Delayed Release Oral Capsule 12/22/2019 12:00:00 A M EST eCW1 ([facility]) Acetaminophen 325 MG / Oxycodone Hydrochloride 10 MG O ral Tablet [Percocet] 12/22/2019 12:00:00 AM EST eCW1 ([facility]) Sucralfate 1000 MG Oral Tablet 12/22/2019 12:00:00 AM EST eCW1 ([facility]) Omeprazole 40 MG Delayed Release Oral Capsule 12/22/2019 12:00:00 A M EST eCW1 ([facility]) Acetaminophen 325 MG / Oxycodone Hydrochloride 10 MG O ral Tablet [Percocet] 12/22/2019 12:00:00 AM EST eCW1 ([facility]) Sucralfate 1000 MG Oral Tablet 12/22/2019 12:00:00 AM EST eCW1 ([facility]) Omeprazole 40 MG Delayed Release Oral Capsule 12/22/2019 12:00:00 A M EST eCW1 ([facility]) Omeprazole 40 MG Delayed Release Oral Capsule 12/22/2019 12:00:00 A M EST eCW1 ([facility]) Sucralfate 1000 MG Oral Tablet 12/22/2019 12:00:00 AM EST eCW1 ([facility]) Omeprazole 40 MG Delayed Release Oral Capsule 12/22/2019 12:00:00 A M EST eCW1 ([facility]) Sucralfate 1000 MG Oral Tablet 12/22/2019 12:00:00 AM EST eCW1 ([facility]) Omeprazole 40 MG Delayed Release Oral Capsule 12/22/2019 12:00:00 A M EST eCW1 ([facility]) Sucralfate 1000 MG Oral Tablet 12/22/2019 12:00:00 AM EST eCW1 ([facility]) Omeprazole 40 MG Delayed Release Oral Capsule 12/22/2019 12:00:00 A M EST eCW1 ([facility]) Sucralfate 1000 MG Oral Tablet 12/22/2019 12:00:00 AM EST eCW1 ([facility]) Omeprazole 40 MG Delayed Release Oral Capsule 12/22/2019 12:00:00 A M EST eCW1 ([facility]) Sucralfate 1000 MG Oral Tablet 12/22/2019 12:00:00 AM EST eCW1 ([facility]) Omeprazole 40 MG Delayed Release Oral Capsule 12/22/2019 12:00:00 A M EST eCW1 ([facility]) Sucralfate 1000 MG Oral Tablet 12/22/2019 12:00:00 AM EST eCW1 ([facility]) Omeprazole 40 MG Delayed Release Oral Capsule 12/22/2019 12:00:00 A M EST eCW1 ([facility]) Sucralfate 1000 MG Oral Tablet 12/22/2019 12:00:00 AM EST eCW1 ([facility]) Acetaminophen 325 MG / Oxycodone Hydrochloride 10 MG O ral Tablet [Percocet] 12/22/2019 12:00:00 AM EST eCW1 ([facility]) Omeprazole 40 MG Delayed Release Oral Capsule 12/22/2019 12:00:00 A M EST eCW1 ([facility]) Sucralfate 1000 MG Oral Tablet 12/22/2019 12:00:00 AM EST eCW1 ([facility]) Omeprazole 40 MG Delayed Release Oral Capsule 12/22/2019 12:00:00 A M EST eCW1 ([facility]) Sucralfate 1000 MG Oral Tablet 12/22/2019 12:00:00 AM EST eCW1 ([facility]) Omeprazole 40 MG Delayed Release Oral Capsule 12/22/2019 12:00:00 A M EST eCW1 ([facility]) Sucralfate 1000 MG Oral Tablet 12/22/2019 12:00:00 AM EST eCW1 ([facility]) Omeprazole 40 MG Delayed Release Oral Capsule 12/22/2019 12:00:00 A M EST eCW1 ([facility]) Sucralfate 1000 MG Oral Tablet 12/22/2019 12:00:00 AM EST eCW1 ([facility]) Acetaminophen 325 MG / Oxycodone Hydrochloride 10 MG O ral Tablet [Percocet] 11/24/2019 12:00:00 AM EDT eCW1 ([facility]) Diazepam 2 MG Oral Tablet 11/10/2019 12:00:00 AM EDT eCW1 ([facility]) Diazepam 2 MG Oral Tablet 11/10/2019 12:00:00 AM EDT eCW1 ([facility]) Diazepam 2 MG Oral Tablet 11/10/2019 12:00:00 AM EDT eCW1 ([facility]) Diazepam 2 MG Oral Tablet 11/10/2019 12:00:00 AM EDT eCW1 ([facility]) Diazepam 2 MG Oral Tablet 11/10/2019 12:00:00 AM EDT eCW1 ([facility]) Diazepam 2 MG Oral Tablet 11/10/2019 12:00:00 AM EDT eCW1 ([facility]) Diazepam 2 MG Oral Tablet 11/10/2019 12:00:00 AM EDT eCW1 ([facility]) Diazepam 2 MG Oral Tablet 11/10/2019 12:00:00 AM EDT eCW1 ([facility]) Diazepam 2 MG Oral Tablet 11/10/2019 12:00:00 AM EDT eCW1 ([facility]) Diazepam 2 MG Oral Tablet 11/10/2019 12:00:00 AM EDT eCW1 ([facility]) Diazepam 2 MG Oral Tablet 11/10/2019 12:00:00 AM EDT eCW1 ([facility]) Diazepam 2 MG Oral Tablet 11/10/2019 12:00:00 AM EDT eCW1 ([facility]) Diazepam 2 MG Oral Tablet 11/10/2019 12:00:00 AM EDT eCW1 ([facility]) Diazepam 2 MG Oral Tablet 11/10/2019 12:00:00 AM EDT eCW1 ([facility]) Diazepam 2 MG Oral Tablet 11/10/2019 12:00:00 AM EDT eCW1 ([facility]) Diazepam 2 MG Oral Tablet 11/10/2019 12:00:00 AM EDT eCW1 ([facility]) Diazepam 2 MG Oral Tablet 11/10/2019 12:00:00 AM EDT eCW1 ([facility]) Diazepam 2 MG Oral Tablet 11/10/2019 12:00:00 AM EDT eCW1 ([facility]) Diazepam 2 MG Oral Tablet 11/10/2019 12:00:00 AM EDT eCW1 ([facility]) Diazepam 2 MG Oral Tablet 11/10/2019 12:00:00 AM EDT eCW1 ([facility]) Diazepam 2 MG Oral Tablet 11/10/2019 12:00:00 AM EDT eCW1 ([facility]) Diazepam 2 MG Oral Tablet 11/10/2019 12:00:00 AM EDT eCW1 ([facility]) Diazepam 2 MG Oral Tablet 11/10/2019 12:00:00 AM EDT eCW1 ([facility]) Diazepam 2 MG Oral Tablet 11/10/2019 12:00:00 AM EDT eCW1 ([facility]) Diazepam 2 MG Oral Tablet 11/10/2019 12:00:00 AM EDT eCW1 ([facility]) Diazepam 2 MG Oral Tablet 11/10/2019 12:00:00 AM EDT eCW1 ([facility]) Diazepam 2 MG Oral Tablet 11/10/2019 12:00:00 AM EDT eCW1 ([facility]) Diazepam 2 MG Oral Tablet 11/10/2019 12:00:00 AM EDT eCW1 ([facility]) Diazepam 2 MG Oral Tablet 11/10/2019 12:00:00 AM EDT eCW1 ([facility]) Diazepam 2 MG Oral Tablet 11/10/2019 12:00:00 AM EDT eCW1 ([facility]) Diazepam 2 MG Oral Tablet 11/10/2019 12:00:00 AM EDT eCW1 ([facility]) Diazepam 2 MG Oral Tablet 11/10/2019 12:00:00 AM EDT eCW1 ([facility]) Diazepam 2 MG Oral Tablet 11/10/2019 12:00:00 AM EDT eCW1 ([facility]) Diazepam 2 MG Oral Tablet 11/10/2019 12:00:00 AM EDT eCW1 ([facility]) Diazepam 2 MG Oral Tablet 11/10/2019 12:00:00 AM EDT eCW1 ([facility]) Diazepam 2 MG Oral Tablet 11/10/2019 12:00:00 AM EDT eCW1 ([facility]) Diazepam 2 MG Oral Tablet 11/10/2019 12:00:00 AM EDT eCW1 ([facility]) Diazepam 2 MG Oral Tablet 11/10/2019 12:00:00 AM EDT eCW1 ([facility]) Diazepam 2 MG Oral Tablet 11/10/2019 12:00:00 AM EDT eCW1 ([facility]) Diazepam 2 MG Oral Tablet 11/10/2019 12:00:00 AM EDT eCW1 ([facility]) Diazepam 2 MG Oral Tablet 11/10/2019 12:00:00 AM EDT eCW1 ([facility]) Diazepam 2 MG Oral Tablet 11/10/2019 12:00:00 AM EDT eCW1 ([facility]) Diazepam 2 MG Oral Tablet 11/10/2019 12:00:00 AM EDT eCW1 ([facility]) Diazepam 2 MG Oral Tablet 11/10/2019 12:00:00 AM EDT eCW1 ([facility]) Diazepam 2 MG Oral Tablet 11/10/2019 12:00:00 AM EDT eCW1 ([facility]) Diazepam 2 MG Oral Tablet 11/10/2019 12:00:00 AM EDT eCW1 ([facility]) Diazepam 2 MG Oral Tablet 11/10/2019 12:00:00 AM EDT eCW1 ([facility]) Diazepam 2 MG Oral Tablet 11/10/2019 12:00:00 AM EDT eCW1 ([facility]) Diazepam 2 MG Oral Tablet 11/10/2019 12:00:00 AM EDT eCW1 ([facility]) 28 ACTUAT tiotropium 0.0025 MG/ACTUAT Metered Dose Inh aler [Spiriva] 09/04/2019 12:00:00 AM EDT eCW1 ([facility]) 28 ACTUAT tiotropium 0.0025 MG/ACTUAT Metered Dose Inh aler [Spiriva] 09/04/2019 12:00:00 AM EDT eCW1 ([facility]) 28 ACTUAT tiotropium 0.0025 MG/ACTUAT Metered Dose Inh aler [Spiriva] 09/04/2019 12:00:00 AM EDT eCW1 ([facility]) 28 ACTUAT tiotropium 0.0025 MG/ACTUAT Metered Dose Inh aler [Spiriva] 09/04/2019 12:00:00 AM EDT eCW1 ([facility]) 28 ACTUAT tiotropium 0.0025 MG/ACTUAT Metered Dose Inh aler [Spiriva] 09/04/2019 12:00:00 AM EDT eCW1 ([facility]) 28 ACTUAT tiotropium 0.0025 MG/ACTUAT Metered Dose Inh aler [Spiriva] 09/04/2019 12:00:00 AM EDT eCW1 ([facility]) 28 ACTUAT tiotropium 0.0025 MG/ACTUAT Metered Dose Inh aler [Spiriva] 09/04/2019 12:00:00 AM EDT eCW1 ([facility]) Morphine Sulfate 15 MG Extended Release Oral Tablet 09/03/19 12:00:00 AM EDT eCW1 ([facility]) 200 ACTUAT Albuterol 0.09 MG/ACTUAT Metered Dose Inhal er [Ventolin] 08/25/2019 12:00:00 AM EDT eCW1 ([facility]) tiotropium 0.018 MG/ACTUAT Inhalant Powder [Spiriva] 12:00:00 AM EDT eCW1 ([facility]) 200 ACTUAT Albuterol 0.09 MG/ACTUAT Metered Dose Inhal er [Ventolin] 08/25/2019 12:00:00 AM EDT eCW1 ([facility]) tiotropium 0.018 MG/ACTUAT Inhalant Powder [Spiriva] 12:00:00 AM EDT eCW1 ([facility]) 200 ACTUAT Albuterol 0.09 MG/ACTUAT Metered Dose Inhal er [Ventolin] 08/25/2019 12:00:00 AM EDT eCW1 ([facility]) tiotropium 0.018 MG/ACTUAT Inhalant Powder [Spiriva] 12:00:00 AM EDT eCW1 ([facility]) 200 ACTUAT Albuterol 0.09 MG/ACTUAT Metered Dose Inhal er [Ventolin] 08/25/2019 12:00:00 AM EDT eCW1 ([facility]) tiotropium 0.018 MG/ACTUAT Inhalant Powder [Spiriva] 12:00:00 AM EDT eCW1 ([facility]) 200 ACTUAT Albuterol 0.09 MG/ACTUAT Metered Dose Inhal er [Ventolin] 08/25/2019 12:00:00 AM EDT eCW1 ([facility]) tiotropium 0.018 MG/ACTUAT Inhalant Powder [Spiriva] 12:00:00 AM EDT eCW1 ([facility]) Chlorthalidone 25 MG Oral Tablet 08/04/2019 12:00:00 AM EDT eCW1 ([facility]) Propranolol Hydrochloride 10 MG Oral Tablet 08/04/2019 12:00:00 AM EDT eCW1 ([facility]) Morphine Sulfate 15 MG Extended Release Oral Tablet 07/28/19 12:00:00 AM EDT eCW1 ([facility]) Morphine Sulfate 15 MG Extended Release Oral Tablet 07/28/19 12:00:00 AM EDT eCW1 ([facility]) Acetaminophen 325 MG / Oxycodone Hydrochloride 10 MG O ral Tablet [Percocet] 07/13/2019 12:00:00 AM EDT eCW1 ([facility]) Morphine Sulfate 15 MG Extended Release Oral Tablet 07/07/19 12:00:00 AM EDT eCW1 ([facility]) Acetaminophen 325 MG / Oxycodone Hydrochloride 10 MG O ral Tablet [Percocet] 06/17/2019 12:00:00 AM EDT eCW1 ([facility]) Morphine Sulfate 15 MG Extended Release Oral Tablet 06/03/19 12:00:00 AM EDT eCW1 ([facility]) Acetaminophen 325 MG / Oxycodone Hydrochloride 10 MG O ral Tablet [Percocet] 05/18/2019 12:00:00 AM EDT eCW1 ([facility]) Morphine Sulfate 15 MG Extended Release Oral Tablet 05/04/19 12:00:00 AM EDT eCW1 ([facility]) Morphine Sulfate 15 MG Extended Release Oral Tablet 04/08/19 12:00:00 AM EST eCW1 ([facility]) Diazepam 5 MG Oral Tablet 04/01/2019 12:00:00 AM [facility] atorvastatin 40 MG Oral Tablet 03/26/2019 12:00:00 AM EST eCW1 ([facility]) atorvastatin 40 MG Oral Tablet 03/26/2019 12:00:00 AM EST eCW1 ([facility]) atorvastatin 40 MG Oral Tablet 03/26/2019 12:00:00 AM EST eCW1 ([facility]) Nystatin [id number] UNT/ML Topical Cream 03/26/2019 12:00:00 AM EST eCW1 ([facility]) Nystatin [id number] UNT/ML Topical Cream 03/26/2019 12:00:00 AM EST eCW1 ([facility]) Nystatin [id number] UNT/ML Topical Cream 03/26/2019 12:00:00 AM EST eCW1 ([facility]) atorvastatin 40 MG Oral Tablet 03/26/2019 12:00:[address] [facility] ([facility]) Losartan Potassium 50 MG Oral Tablet 03/26/2019 12:00:00 AM [facility] Ergocalciferol 40271 UNT Oral Capsule 03/26/2019 12:00:00 AM [facility] atorvastatin 40 MG Oral Tablet 03/26/2019 12:00:00 AM [facility] Nystatin [id number] UNT/ML Topical Cream 03/26/2019 12:00:00 AM EST W1 ([facility]) atorvastatin 40 MG Oral Tablet 03/26/2019 12:00:00 AM EST W1 ([facility]) Acetaminophen 325 MG / Oxycodone Hydrochloride 10 MG O ral Tablet [Percocet] 03/25/2019 12:00:00 AM EST [facility] ([facility]) Morphine Sulfate 15 MG Extended Release Oral Tablet 03/10/19 12:00:00 AM EST [facility] ([facility]) Diazepam 5 MG Oral Tablet 03/05/2019 12:00:00 AM [facility] Acetaminophen 325 MG / Oxycodone Hydrochloride 10 MG O ral Tablet [Percocet] 02/17/2019 12:00:[address] [facility] ([facility]) Morphine Sulfate 15 MG Extended Release Oral Tablet 02/12/19 12:00:00 AM EST [facility] ([facility]) Acetaminophen 325 MG / Oxycodone Hydrochloride 10 MG O ral Tablet [Percocet] 01/19/2019 12:00:[address] [facility] ([facility]) Morphine Sulfate 15 MG Extended Release Oral Tablet 01/16/20 12:00:[address] [facility] ([facility]) Morphine Sulfate 15 MG Extended Release Oral Tablet 01/16/20 12:00:00 AM [place] [id number] ([facility]) duloxetine 30 MG Delayed Release Oral Capsule 12/30/2018 12:00:00 A M [facility] Losartan Potassium 25 MG Oral Tablet 05/14/2018 12:00:00 AM [facility] Propranolol Hydrochloride 20 MG Oral Tablet 01/13/2018 12:00:00 AM EST [facility] Oxycodone Hydrochloride 5 MG Oral Tablet 06/25/2017 12:00:00 AM T [facility]
[2020-02-29 22:45] LABS: AMPHETAMINES LEVEL URINE NEGATIVE (NEGATIVE); BARBITURATES URINE NEGATIVE (NEGATIVE); BENZODIAZEPINES URINE POSITIVE (NEGATIVE); CANNABINOIDS URINE NEGATIVE (NEGATIVE); COCAINE METABOLITE URINE NEGATIVE (NEGATIVE); METHADONE URINE NEGATIVE (NEGATIVE); OPIATES URINE POSITIVE (NEGATIVE); PHENCYCLIDINE URINE NEGATIVE (NEGATIVE)
[2020-03-01] MEDS ORDERED: PERCOCET 5MG/325MG TAB PO PRN (01:30)
--- NOTE | 2020-03-01 01:36 | HPEPDOC ---
[facility] Medical History & Physical Date of Admission Feb 29, 2020 Date of Service: Feb 29, 2020 Primary Care Physician: RON MUNIZ PA-C Attending Physician: Dave Phan MD History and Physical CHIEF COMPLAINT: Confusion, shortness of breath HISTORY OF PRESENT ILLNESS: Jean-Paul Akbar is a 55 YO M with history of depression, generalized anxiety, chronic low back pain who presents to the ED after having been brought in by his with complaint of shortness of breath. The patient reports that he recently fell on black ice landing on his chest and today he experienced sudden shortness of breath related to that injury. Upon my entry into the room, the patient reports that all of his symptoms have completely resolved. He is no longer short of breath and is feeling well. Per ED M.D., who called the patient's , the patient has been having hallucinations and has been belligerent for the past several weeks. The patient has a history of generalized anxiety disorder and depression for which he recently started seeing a psychiatrist, Dr. Devine, at [facility]. The patient tells me that he has not had any issues with confusion, denies any h allucinations or mood changes, and feels as though his therapy is working. He does note that he has been unable to sleep and recently his primary care physician prescribed him gabapentin and amitriptyline. Looking back at his PCP notes he has been on both of these medications for some time now. PAST MEDICAL HISTORY: Chronic low back pain - DDD Right arm pain - biceps tendon rupture - [facility] - s/p surgical repair 2013 with residual numbness and pain - Macrocytic anemia Pulmonary nodules - Chest CT 09/25/13 - mild COPD, old granulomatous disease with calcified 11mm nodule in LLL, calcified left hilar nodes. 3mm noncalcified pulmonary nodule just adjacent to and continuos with other pulmonary nodule. Recommend f/u CT chest 09/25. - F/U CT done 08/03/15 - chronic changes, stable 3 mm nodule c/w 09/25/13 - no further imaging needed Vitamin D deficiency Right torn rotator cuff/ torn left rotator cuff depression Hypertension BL hand tremor - Per imaging at [facility] - -spine x-rays showed severe degenerative changes, MRI showed mild Degenerative changes. F/U MRI pending per Neurosurgery (comp case) - Neuology Dr. 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 Devine) 08/2019 - Echo - NormalLV size and systolic function, Normal diastolic function, Elevated pul central pressure PAST SURGICAL HISTORY: Bicep-Rt side 2015 rotator cuff tear repair-left 02/2017 Colonoscopy 2016 Right rotator cuff repair- RIGHT 06/2018 SOCIAL HISTORY: Current smoker, 1ppd Denies alcohol Denies illicit drugs Disabled Lives with Chichi FAMILY HISTORY: Father: 55 yrs, liver cancer, diagnosed with Other malignant neoplasm of unspecified site, Other specified conditions influencing health status Mother: 72 yrs, breast cancer, Other malignant neoplasm of unspecified site Siblings: alive Son(s): alive, DM 2 brother(s) , 2 sister(s) - healthy. 2 son(s) - healthy. father cirrhosis of liver\\mother had breast cancer, bone cancer. ALLERGIES: Please see below. REVIEW OF SYSTEMS: Constitutional: No Weight Change, No Fever, No Chills, No Night Sweats, No Fatigue, No Malaise ENT/Mouth: No Hearing Changes, No Ear Pain, No Nasal Congestion, No Sinus Pain, No Hoarseness, No sore throat, No Rhinorrhea, No Swallowing Difficulty Eyes: No Eye Pain, No Swelling, No Redness, No Foreign Body, No Discharge, No Vision Changes Cardiovascular: No Chest Pain, No SOB, No PND, reports Dyspnea on Exertion, No Orthopnea, No Claudication, No Edema, No Palpitations Respiratory: Reports some cough, shortness of breath with activity Gastrointestinal: No Nausea, No Vomiting, No Diarrhea, No Constipation, No Pain, No Heartburn, No Anorexia, No Dysphagia, No Hematochezia, No Melena Genitourinary: No Dysuria Musculoskeletal: No Arthralgias, No Myalgias, No Joint Swelling, No Joint Stiffness, No Back Pain, No Neck Pain Skin: No Skin Lesions, No Pruritis Neuro: No Weakness, No Numbness, No Paresthesias, No Loss of Consciousness, No Syncope, No Dizziness, No Headache, No Coordination Changes, No Recent Falls Psych: No Anxiety/Panic, No Depression, No Insomnia, No Personality Changes, No Delusions HOME MEDICATIONS: Please see below. PHYSICAL EXAMINATION: VITAL SIGNS: see below GENERAL: alert and oriented, in no apparent distress, pleasant and conversant in full sentences. HEENT: PERRL, EOMI, Oral mucous membranes are moist without lesions. NECK: The patient has no noted JVD. No adenopathy is appreciated. No thyromegaly CHEST/LUNGS: Lungs are clear bilaterally without rhonchi, rales, or wheezes. There is no subcutaneous air appreciated. There is no tenderness to the chest wall. HEART: Regular rate and rhythm. No murmurs, rubs, or gallops are appreciated. Distal pulses are 2+. No carotid bruits appreciated. ABDOMEN: Soft, nontender, and nondistended. Bowel sounds are positive. No organomegaly is appreciated. No masses are appreciated. There are no peritoneal signs. There is no [place] sign. EXTREMITIES: No peripheral edema. There is no focal long bone tenderness or de formity. SKIN: The patients skin is warm and dry, without rashes or lesions. PSYCHIATRIC: AAO x 3, normal mood/affect NEUROLOGIC: The patient has 5/5 strength to the upper and lower extremities bilaterally. Sensation is intact throughout. Deep tendon reflexes are 2+ in all four extremities. There are no deficits to the cranial nerves. LABORATORY DATA: See below. IMAGING: CT HEAD: FINDINGS: Brain: Mild diffuse cerebellar atrophy. Mild diffuse parenchymal atrophy without significant white matter disease. Cerebral ventricles: No ventriculomegaly. Bones/joints: Unremarkable. No acute fracture. Paranasal sinuses: Visualized sinuses are unremarkable. No fluid levels. Mastoid air cells: Visualized mastoid air cells are well aerated. Vasculature: Atherosclerotic calcifications are demonstrated in the intracranial carotid arteries bilaterally as well as in the vertebral basilar system. Soft tissues: Unremarkable. IMPRESSION: 1. Mild diffuse cerebellar atrophy. 2. Mild diffuse parenchymal atrophy without significant white matter disease. 3. No acute intracranial findings. CXR: FINDINGS: The technique utilized in obtaining the radiograph has magnified the cardiac silhouette and accentuated the interstitial markings. The superior mediastinal structures are midline. The cardiac silhouette is unremarkable in size, shape, and position. The diaphragmatic surfaces of the lungs are regular, and the costophrenic angles are clear. The pulmonary hensley are unchanged. There is an old calcified granuloma in the left lower lobe. There is stable biapical pleuroparenchymal scarring. The imaged osseous structures are intact. IMPRESSION: There is no acute cardiopulmonary disease. MICROBIOLOGY: Please see below. ASSESSMENT: This is a 55-year-old male with history of anxiety, depression who presents with shortness of breath and reported history of recent hallucinations, insomnia, belligerence and confusion. He is admitted for further workup. PLAN: 1. Acute metabolic encephalopathy: ddx--psychosis vs polypharmacy versus medication side effect -Patient was not actively hallucinating, was alert and oriented 3 on my exam. -CT head negative for any abnormality -MRI head pending -Plan to hold home amitriptyline, Cymbalta, gabapentin for now -Continue home diazepam, so as to not precipitate withdrawal -Urinalysis negative -Toxicology positive for opiates and benzodiazepines, which the patient is taking at home -Patient may benefit from psychiatry consult in a.m. 2. Chronic low back pain: -Patient sees pain management clinic outpatient -Will continue oxycodone 3. COPD: -Continue home inhalers 4. Hypertension: -Continue home valsartan 5. Hyperlipidemia: -Continue home atorvastatin DVT ppx: Teds and sequentials DISPO: Pending further workup of metabolic encephalopathy Vital Signs Vital Signs Date Time Temp Pulse Resp B/P (MAP) Pulse Ox O2 Delivery O2 Flow Rate FiO2 02/29/20 21:17 67 99 02/29/20 21:00 121/81 (94) 02/29/20 18:30 20 Room Air 02/29/20 16:16 97.0 Laboratory Data Labs 24H Laboratory Tests 2 02/29/20 17:41: Immature Granulocyte % (Auto) 0.1, Neutrophils (%) (Auto) 60.6, Lymphocytes (%) (Auto) 29.3, Monocytes (%) (Auto) 8.1H, Eosinophils (%) (Auto) 1.2, Basophils (%) (Auto) 0.7, Neutrophils # (Auto) 4.1, Lymphocytes # (Auto) 2.0, Monocytes # (Auto) 0.6, Eosinophils # (Auto) 0.1, Basophils # (Auto) 0.1, Nucleated Red Blood Cells % (auto) 0.0, Prothrombin Time 13.6, Prothromb Time International Ratio 1.02, Activated Partial Thromboplast Time 35.1, Anion Gap 4L, Glomerular Filtration Rate > 60.0, Calcium Level 8.7, Total Bilirubin 0.3, Direct Bilirubin 0.1, Aspartate Amino Transf (AST/SGOT) 9, Alanine Aminotransferase (ALT/SGPT) 15, Alkaline Phosphatase 106, Total Creatine Kinase 90, Creatine Kinase MB < 1.0, Creatine Kinase MB Relative Index 1.11, Troponin I < 0.02, FY-Vjl-M-Type Natriuretic Peptide 26, Total Protein 6.7, Albumin 3.7, Albumin/Globulin Ratio 1.2, Thyroid Stimulating Hormone (TSH) 0.427, Free Thyroxine 1.07, Salicylates Level 8.2, Acetaminophen Level < 2.0L, Ethyl Alcohol Level < 0.003 02/29/20 22:01: Urine Color YELLOW, Urine Appearance CLEAR, Urine pH 6.0, Urine Specific [place] 1.005, Urine Protein NEGATIVE, Urine Glucose (UA) NEGATIVE, Urine Ketones NEGATIVE, Urine Blood 1+H, Urine Nitrite NEGATIVE, Urine Bilirubin NEGATIVE, Urine Urobilinogen 0.2, Urine Leukocyte Esterase NEGATIVE, Urine WBC (Auto) 1, Urine RBC (Auto) 3, Urine Hyaline Casts (Auto) 0, Urine Bacteria (Auto) NEGATIVE, Urine Squamous Epithelial Cells 0, Urine Sperm (Auto) , Urine Opiates Screen POSITIVEH, Urine Methadone Screen NEGATIVE, Urine Barbiturates Screen NEGATIVE, Urine Phencyclidine Screen NEGATIVE, Urine Amphetamines Screen NEGATIVE, Urine Benzodiazepines Screen POSITIVEH, Urine Cocaine Metabolite Screen NEGATIVE, Urine Cannabinoids Screen NEGATIVE CBC/BMP Laboratory Tests 02/29/20 17:41 Microbiology Microbiology 02/29/20 Respiratory Virus Panel (PCR) (TODD) - Final, Complete Home Medications Scheduled Amitriptyline HCl (Amitriptyline HCl) 25 Mg Tablet, 125 MG PO QHS Aspirin (Aspirin EC) 81 Mg Tablet.dr, 81 MG PO DAILY Atorvastatin Calcium (Atorvastatin Calcium) 40 Mg Tablet, 40 MG PO DAILY Diazepam (Diazepam) 2 Mg Tablet, 2 MG PO BID Diazepam (Diazepam) 2 Mg Tablet, 1 MG PO DAILY TAKES AT NOON Duloxetine Hcl (Cymbalta) 30 Mg Capsule.dr, 30 MG PO DAILY Gabapentin (Gabapentin) 300 Mg Capsule, 300 MG PO BID MORNING AND NOON Gabapentin (Gabapentin) 300 Mg Capsule, 1,200 MG PO QHS Ipratropium/Albuterol Sulfate (Combivent Respimat 20-100 Mcg) 4 Gm Mist.inhal, 1 PUFF INH DAILY Morphine Sulfate (Morphine Sulfate ER) 15 Mg Tablet.er, 15 MG PO Q8H Omeprazole (Omeprazole) 40 Mg Capsule.dr, 40 MG PO DAILY Primidone (Primidone) 250 Mg Tablet, 125 MG PO BID Propranolol HCl (Propranolol HCl) 20 Mg Tablet, 20 MG PO TID Sucralfate (Sucralfate) 1 Gm Tablet, 1 GM PO AC Tiotropium [place] (Spiriva Respimat) 4 Gm Mist.inhal, 2 PUFFS INH DAILY Valsartan (Valsartan) 320 Mg Tablet, 320 MG PO DAILY Scheduled PRN Oxycodone HCl/Acetaminophen (Oxycodone-Acetaminophen 10-325) 1 Each Tablet, 1 TAB PO Q6HP PRN for PAIN Allergies Coded Allergies: Penicillins (Verified Allergy, Intermediate, HIVES, 02/29/20) albuterol (Verified Adverse Reaction, Mild, HYPER/SHAKY, 02/29/20) A-FIB/CHADSVASC A-FIB History Current/History of A-Fib/PAF?: No Current PO Anticoag Therapy: No GME ATTESTATION ATTENDING NOTE Family Medicine Attending Note: I was present on site to supervise Michelle Howard DO (PGY-3). We discussed the history and exam. I confirmed the north elements during my [id number] encounter with the patient. We conferred on the assessment and plan; I agree with the note as documented. (mapping editor) MICHELLE HOWARD MD Mar 01, 2020 00:04 Dave Phan MD Mar 01, 2020 05:14
[2020-03-01 02:32] VITALS: BP 102/63
--- NOTE | 2020-03-01 02:36 | REPVR ---
PROCEDURE INFORMATION: Exam: MR Head Without Contrast Exam date and time: 03/01/2020 2:07 AM Age: 55 years old Clinical indication: Alteration of consciousness; Transient alteration of awareness; Patient HX: AMS, hallucinations, have since subsided TECHNIQUE: Imaging protocol: MR of the head without contrast. COMPARISON: MRI-Brain without Contrast 12/14/2017 10:56 AM FINDINGS: Examination is limited by patient motion. Major vascular flow voids at the skull base are preserved. No extra-axial fluid collection. No hydrocephalus. No midline shift or intracranial mass effect. Mild nonspecific white matter gliosis, probable chronic microvascular ischemia. No cerebral edema. No diffusion restriction. Mild paranasal sinus disease. No significant mastoid effusion. IMPRESSION: Patient motion without definite acute intracranial abnormality. Electronically signed by: Gray Beckett On 03/01/2020 02:35:55 AM
[2020-03-01 03:19] VITALS: BP_SYST 100; BP_SYST 103; BP_SYST 104; BP_DIAS 63; BP_DIAS 68; BP_DIAS 69
[2020-03-01] MEDS: NS 1,000 ML IV SCH ×3 (03:32→16:54)
[2020-03-01 06:00] VITALS: BP 103/69
[2020-03-01 07:12] LABS: HEMOGLOBIN 11.3 g/dl (13.5-17.5); MEAN CORPUSCULAR HEMOGLOBIN 32.9 pg (27.0-33.0); MEAN CORPUSCULAR HGB CONC 33.2 g/dl (32.0-36.5); MEAN CORPUSCULAR VOLUME 99.1 fl (80.0-96.0); PLATELET COUNT, AUTOMATED 183 10^3/uL (150-450); RED BLOOD COUNT 3.43 10^6/uL (4.30-6.10); WHITE BLOOD COUNT 4.7 10^3/uL (4.0-10.0)
[2020-03-01] MEDS: TIOTROPIUM INHALER/CAPSULE (SPIRIVA) INH SCH (07:18)
[2020-03-01 07:47] LABS: ALT/SGPT 12 U/L (12-78); BILIRUBIN,TOTAL 0.2 MG/DL (0.2-1.0); BLOOD UREA NITROGEN 9 MG/DL (7-18); CALCIUM LEVEL 8.7 MG/DL (8.5-10.1); CARBON DIOXIDE LEVEL 28 MEQ/L (21-32); CHLORIDE LEVEL 112 MEQ/L (98-107); CREATININE FOR GFR 0.82 MG/DL (0.70-1.30); GLOMERULAR FILTRATION RATE > 60.0 (>56); GLUCOSE, FASTING 108 MG/DL (70-100); MAGNESIUM LEVEL 2.1 MG/DL (1.8-2.4); POTASSIUM SERUM 4.7 MEQ/L (3.5-5.1); SODIUM LEVEL 143 MEQ/L (136-145); TOTAL PROTEIN 5.4 GM/DL (6.4-8.2)
[2020-03-01] MEDS ORDERED: GABAPENTIN 300 MG CAP PO SCH (09:00)
[2020-03-01] MEDS: VALSARTAN 80 MG TAB (DIOVAN) PO SCH ×2 (09:00→09:07)
[2020-03-01] MEDS: PROPRANOLOL 20 MG TAB PO SCH ×4 (09:00→20:06)
[2020-03-01] MEDS: ATORVASTATIN 20 MG TAB PO SCH (09:05)
[2020-03-01] MEDS: OMEPRAZOLE 20 MG CAP PO SCH (09:05)
[2020-03-01] MEDS: ASPIRIN 81 MG ENTERIC TAB PO SCH (09:05)
[2020-03-01] MEDS: SUCRALFATE 1 GM TAB PO SCH ×3 (09:05→16:54)
[2020-03-01] MEDS: diazePAM 2 MG TAB PO SCH ×2 (09:05→20:05)
[2020-03-01] MEDS: PRIMIDONE 125MG PER 1/2 TABLET PO SCH ×2 (09:47→20:07)
[2020-03-01] MEDS ORDERED: diazePAM 2 MG TAB PO SCH (12:00)
[2020-03-01 14:00] VITALS: BP 110/65
[2020-03-01] MEDS ORDERED: AMITRIPTYLINE 25MG TABLET PO SCH (17:00)
[2020-03-01] MEDS ORDERED: AMITRIPTYLINE 50 MG TAB PO SCH (17:00)
[2020-03-01] MEDS ORDERED: HALOPERIDOL 5MG/ML VIAL (J1630 PER 1) IV PRN (17:15)
--- NOTE | 2020-03-01 18:32 | IPNPDOC ---
Text Note Date of Service The patient was seen on 03/01/20. NOTE Subjective: Patient became agitated during the daytime, requesting morphine d rip. I talked to his by phone, she told me that for past few months patient was combative and aggressive towards her. She stated that the patient might have auditory hallucinations Objective: GENERAL APPEARANCE: NAD HEENT: no scleral icterus, no JVD, EOMI CARDIOVASCULAR: S1S2 LUNGS: CTA ABDOMEN: soft & not tender w palpitation MUSCULOSKELETAL: no cyanosis, no swelling INTEGUMENT: no generalized palor NEUROLOGICAL: cranial nerve function from 2-12 intact intact, follows commands, speech not dysarthric ASSESSMENT: This is a 55-year-old male with history of anxiety, depression who presents with shortness of breath and reported history of recent hallucinations, insomnia, belligerence and confusion. He is admitted for further workup. Acute metabolic encephalopathy In the morning patient was alert, oriented and awake. During daytime patient became agitated requesting telemetry and morphine drip There is concern for underlying schizophrenia given history of hallucinations, paranoid delusions Appreciate/agree with psychiatrist consult Brain MRI negative His acute metabolic encephalopathy could be of associated with polypharmacy. Patient stated that he took a new medication for him it was gabapentin with beer Chronic back pain Continue pain management Hypertension: -Continue home valsartan Hyperlipidemia: -Continue home atorvastatin VS,Fishbone, I+O VS, Fishbone, I+O Laboratory Tests 03/01/20 06:43 Vital Signs Date Time Temp Pulse Resp B/P (MAP) Pulse Ox O2 Delivery O2 Flow Rate FiO2 03/01/20 14:00 97.4 68 17 110/65 (80) 95 Room Air I&O- Last 24 Hours up to 6 AM 03/01/20 06:00 Intake Total 2425 ml Output Total 0 ml Balance 2425 ml CHAMP OLVERA DO Mar 01, 2020 18:32
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
[2020-03-01] MEDS ORDERED: OLANZapine 2.5MG TABLET PO SCH (21:00)
[2020-03-01 22:00] VITALS: BP 128/76
[2020-03-02 06:00] VITALS: BP 124/89
[2020-03-02] MEDS: TIOTROPIUM INHALER/CAPSULE (SPIRIVA) INH SCH (07:39)
[2020-03-02] MEDS ORDERED: diazePAM 2 MG TAB PO SCH (09:00)
[2020-03-02] MEDS: OMEPRAZOLE 20 MG CAP PO SCH (09:05)
[2020-03-02] MEDS: ATORVASTATIN 20 MG TAB PO SCH (09:05)
[2020-03-02] MEDS: SUCRALFATE 1 GM TAB PO SCH ×3 (09:05→16:48)
[2020-03-02] MEDS: PRIMIDONE 125MG PER 1/2 TABLET PO SCH (09:06)
[2020-03-02] MEDS: ASPIRIN 81 MG ENTERIC TAB PO SCH (09:06)
[2020-03-02] MEDS: PROPRANOLOL 20 MG TAB PO SCH ×2 (09:06→16:00)
[2020-03-02] MEDS: VALSARTAN 80 MG TAB (DIOVAN) PO SCH (09:07)
--- NOTE | 2020-03-02 12:53 | IPNPDOC ---
Text Note Date of Service The patient was seen on 03/02/20. NOTE Subjective: No any acute events overnight. Patient alert, oriented and awake in the morning Objective: GENERAL APPEARANCE: NAD HEENT: no scleral icterus, no JVD, EOMI CARDIOVASCULAR: S1S2 LUNGS: CTA ABDOMEN: soft & not tender w palpitation MUSCULOSKELETAL: no cyanosis, no swelling INTEGUMENT: no generalized palor NEUROLOGICAL: cranial nerve function from 2-12 intact intact, follows commands, speech not dysarthric ASSESSMENT: This is a 55-year-old male with history of anxiety, depression who presents with shortness of breath and reported history of recent hallucinations, insomnia, belligerence and confusion. He is admitted for further workup. Acute metabolic encephalopathy Resolved There is concern for underlying schizophrenia given history of hallucinations, paranoid delusions Brain MRI negative His acute metabolic encephalopathy could be of associated with polypharmacy. Patient stated that he took a new medication for him it was gabapentin with beer We'll titrate down Valium Psych team recommended transfer to mental health unit . Await bed Chronic back pain Continue pain management Hypertension: -Continue home valsartan Hyperlipidemia: -Continue home atorvastatin VS,Fishbone, I+O VS, Fishbone, I+O Vital Signs Date Time Temp Pulse Resp B/P (MAP) Pulse Ox O2 Delivery O2 Flow Rate FiO2 03/02/20 09:06 91 118/76 03/02/20 06:00 97.5 17 97 Room Air I&O- Last 24 Hours up to 6 AM 03/02/20 06:00 Intake Total 2520 ml Output Total 0 ml Balance 2520 ml CHAMP OLVERA DO Mar 02, 2020 12:53
[2020-03-02 14:00] VITALS: BP 125/87
[2020-03-02 16:00] VITALS: BP 106/70
--- NOTE | 2020-03-04 16:58 | DS.PDOC ---
Discharge Summary General Date of Admission Feb 29, 2020 at 16:16 Date of Discharge 03/04/20 Discharge Summary PROCEDURES PERFORMED DURING STAY: [None]. ADMITTING DIAGNOSES: Hypertension Chronic back pain Acute metabolic encephalopathy Hyperlipidemia DISCHARGE DIAGNOSES: Hypertension Chronic back pain Acute metabolic encephalopathy Hyperlipidemia COMPLICATIONS/CHIEF COMPLAINT: Altered Mental Status, HALLUCINATIONS. HISTORY OF PRESENT ILLNESS: This is a 55-year-old male with history of anxiety, depression who presents with shortness of breath and reported history of recent hallucinations, insomnia, belligerence and confusion. He is admitted for further workup. HOSPITAL COURSE: During the hospital stay with following issue addressed Acute metabolic encephalopathy Resolved There is concern for underlying schizophrenia given history of hallucinations, paranoid delusions Brain MRI negative His acute metabolic encephalopathy could be of associated with polypharmacy. Patient stated that he took a new medication for him it was gabapentin with beer We'll titrate down Valium Psych team recommended transfer to mental health unit . Await bed Chronic back pain Continue pain management Hypertension: -Continue home valsartan Hyperlipidemia: -Continue home atorvastatin DISCHARGE MEDICATIONS: Please see below. ALLERGIES: Please see below. PHYSICAL EXAMINATION ON DISCHARGE: VITAL SIGNS: Please see below. GENERAL APPEARANCE: NAD HEENT: no scleral icterus, no JVD, EOMI CARDIOVASCULAR: S1S2 LUNGS: CTA ABDOMEN: soft & not tender w palpitation MUSCULOSKELETAL: no cyanosis, no swelling INTEGUMENT: no generalized palor NEUROLOGICAL: cranial nerve function from 2-12 intact intact, follows commands, speech not dysarthric LABORATORY DATA: Please see below. IMAGING: See above PROGNOSIS: Fair ACTIVITY: [As tolerated]. DIET: Cardiac DISPOSITION: 64 [facility]. DISCHARGE CONDITION: [Stable]. TIME SPENT ON DISCHARGE: Greater [id number]. Vital Signs/I&Os Vital Signs Date Time Temp Pulse Resp B/P (MAP) Pulse Ox O2 Delivery O2 Flow Rate FiO2 03/02/20 16:00 66 106/70 03/02/20 14:00 98.1 17 98 Room Air Microbiology Microbiology 02/29/20 Respiratory Virus Panel (PCR) (OTDD) - Final, Complete Discharge Medications Scheduled Amitriptyline HCl (Amitriptyline HCl) 25 Mg Tablet, 125 MG PO QHS, (Reported) Aspirin (Aspirin EC) 81 Mg Tablet.dr, 81 MG PO DAILY, (Reported) Atorvastatin Calcium (Atorvastatin Calcium) 40 Mg Tablet, 40 MG PO DAILY, (Reported) Diazepam (Diazepam) 2 Mg Tablet, 2 MG PO BID, (Reported) Diazepam (Diazepam) 2 Mg Tablet, 1 MG PO DAILY, (Reported) TAKES AT NOON Duloxetine Hcl (Cymbalta) 30 Mg Capsule.dr, 30 MG PO DAILY, (Reported) Ipratropium/Albuterol Sulfate (Combivent Respimat 20-100 Mcg) 4 Gm Mist.inhal, 1 PUFF INH DAILY, (Reported) Morphine Sulfate (Morphine Sulfate ER) 15 Mg Tablet.er, 15 MG PO Q8H, (Reported) Omeprazole (Omeprazole) 40 Mg Capsule.dr, 40 MG PO DAILY, (Reported) Primidone (Primidone) 250 Mg Tablet, 125 MG PO BID, (Reported) Propranolol HCl (Propranolol HCl) 20 Mg Tablet, 20 MG PO TID, (Reported) Sucralfate (Sucralfate) 1 Gm Tablet, 1 GM PO AC, (Reported) Tiotropium [place] (Spiriva Respimat) 4 Gm Mist.inhal, 2 PUFFS INH DAILY, (Reported) Valsartan (Valsartan) 320 Mg Tablet, 320 MG PO DAILY, (Reported) Scheduled PRN Oxycodone HCl/Acetaminophen (Oxycodone-Acetaminophen 10-325) 1 Each Tablet, 1 TAB PO Q6HP PRN for PAIN, (Reported) Allergies Coded Allergies: Penicillins (Verified Allergy, Intermediate, HIVES, 02/29/20) albuterol (Verified Adverse Reaction, Mild, HYPER/SHAKY, 02/29/20) CHAMP OLVERA DO Mar 04, 2020 16:58
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
--- OUTSIDE RECORDS SUMMARY | 2020-03-14 10:49 | CCD ---
Author Author [facility] Organization [facility] Address Unknown Phone Unavailable Care Team Providers Care Hand Spring Former Name Role Phone Jakub BOWIE MD Unavailable [...] JUDGE MD Unavailable Unavailable MANJARREZ, R PATRICK PORTER HEAD Unavailable Unavailable MANJARREZ, R PATRICK PORTER HEAD Unavailable Unavailable MANJARREZ, R PATRICK PORTER HEAD Unavailable Unavailable MANJARREZ, R PATRICK PORTER HEAD Unavailable Unavailable MANJARREZ, R PATRICK PORTER HEAD Unavailable Unavailable MANJARREZ, R PATRICK PORTER HEAD Unavailable Unavailable MANJARREZ, R PATRICK PORTER HEAD Unavailable Unavailable MANJARREZ, R PATRICK PORTER HEAD Unavailable Unavailable MANJARREZ, R PATRICK PORTER HEAD Unavailable Unavailable MANJARREZ, R PATRICK PORTER HEAD Unavailable Unavailable MANJARREZ, R PATRICK PORTER HEAD Unavailable Unavailable MANJARREZ, R PATRICK PORTER HEAD Unavailable Unavailable MANJARREZ, R PATRICK PORTER HEAD Unavailable Unavailable MANJARREZ, R PATRICK PORTER HEAD Unavailable Unavailable MANJARREZ, R PATRICK PORTER HEAD Unavailable Unavailable MANJARREZ, R PATRICK PORTER HEAD Unavailable Unavailable MANJARREZ, R PATRICK PORTER HEAD Unavailable Unavailable MANJARREZ, R PATRICK PORTER HEAD Unavailable Unavailable MANJARREZ, R PATRICK PORTER HEAD Unavailable Unavailable MANJARREZ, R PATRICK PORTER HEAD Unavailable Unavailable MANJARREZ, R PATRICK PORTER HEAD Unavailable Unavailable MANJARREZ, R PATRICK PORTER HEAD Unavailable Unavailable MANJARREZ, R PATRICK PORTER HEAD Unavailable Unavailable MANJARREZ, R PATRICK PORTER HEAD Unavailable Unavailable MANJARREZ, R PATRICK PORTER HEAD Unavailable Unavailable MANJARREZ, R PATRICK PORTER HEAD Unavailable Unavailable MANJARREZ, R PATRICK PORTER HEAD Unavailable Unavailable MANJARREZ, R PATRICK PORTER HEAD Unavailable Unavailable MANJARREZ, R PATRICK PORTER HEAD Unavailable Unavailable MANJARREZ, R PATRICK PORTER HEAD Unavailable Unavailable MANJARREZ, R PATRICK PORTER HEAD Unavailable Unavailable MANJARREZ, R PATRICK PORTER HEAD Unavailable Unavailable MANJARREZ, R PATRICK PORTER HEAD Unavailable Unavailable MANJARREZ, R PATRICK PORTER HEAD Unavailable Unavailable MANJARREZ, R PATRICK PORTER HEAD Unavailable Unavailable MANJARREZ, R PATRICK PORTER HEAD Unavailable Unavailable MANJARREZ, R PATRICK PORTER HEAD Unavailable Unavailable MANJARREZ, R PATRICK PORTER HEAD Unavailable Unavailable MANJARREZ, R PATRICK PORTER HEAD Unavailable Unavailable MANJARREZ, R PATRICK PORTER HEAD Unavailable Unavailable MANJARREZ, R PATRICK PORTER HEAD Unavailable Unavailable Poe, M Brigid PORTER HEAD Unavailable Unavailable Poe, M Brigid PORTER HEAD Unavailable Unavailable Poe, M Brigid PORTER HEAD Unavailable Unavailable Poe, M Brigid PORTER HEAD Unavailable Unavailable Poe, M Brigid PORTER HEAD Unavailable Unavailable Poe, M Brigid PORTER HEAD Unavailable Unavailable Poe, M Brigid PORTER HEAD Unavailable Unavailable Poe, M Brigid PORTER HEAD Unavailable Unavailable Poe, M Brigid PORTER HEAD Unavailable Unavailable Poe, M Brigid PORTER HEAD Unavailable Unavailable Poe, M Brigid PORTER HEAD Unavailable Unavailable Poe, M Brigid PORTER HEAD Unavailable Unavailable Poe, M Brigid PORTER HEAD Unavailable Unavailable Poe, M Brigid PORTER HEAD Unavailable Unavailable Poe, M Brigid PORTER HEAD Unavailable Unavailable Poe, M Brigid PORTER HEAD Unavailable Unavailable Poe, M Brigid PORTER HEAD Unavailable Unavailable Poe, M Brigid PORTER HEAD Unavailable Unavailable Poe, M Brigid PORTER HEAD Unavailable Unavailable Poe, M Brigid PORTER HEAD Unavailable Unavailable Peo, M Rbigid PORTER HEAD Unavailable Unavailable Poe, M Brigid PORTER HEAD Unavailable Unavailable Poe, M Brigid PORTER HEAD Unavailable Unavailable Poe, M Brigid PORTER HEAD Unavailable Unavailable Poe, M Brigid PORTER HEAD Unavailable Unavailable Poe, M Brigid PORTER HEAD Unavailable Unavailable Poe, M Brigid PORTER HEAD Unavailable Unavailable Poe, M Brigid PORTER HEAD Unavailable Unavailable Poe, M Brigid PORTER HEAD Unavailable Unavailable Poe, M Brigid PORTER HEAD Unavailable Unavailable Brooklyn Huber MD Unavailable Unavailable [...] is protected by Article 27-F of the [facility] Public Health law. If you continue you may have access to information: Regarding HIV / AIDS; Provided by facilities licensed or operated by the [facility] Office of Mental Health; or Provided by the [facility] Office for People With Developmental Disabilities. If such information is present, then the following [facility] mandated warning applies: This information has been [...] law may result in a fine or correction sentence or both. A general authorization for the release of medical or other information is NOT sufficient authorization for further disc losure. Allergies and Adverse Reactions Type Description Substance Reaction Status Data Source(s ) Drug allergy Dexamethasone Dexamethasone erythema Active eCW1 ( [facility]) Drug allergy Penicillin (For Allergies Use Only) Drug allergy told as a child to not take Active eCW1 ([facility]) Family History Family Member Name Family Member Gender Family Member Status Date o f Status Description Data Source(s) Unknown Male Problem MEDENT ([facility] ) Unknown Unknown Problem MEDENT ([facility], ) Unknown Unknown Problem MEDENT ([facility], ) Unknown Unknown Problem MEDENT ([facility], ) Unknown Unknown Problem MEDENT ([facility], ) Encounters Encounter Providers Location Date Indications Data Source(s ) Outpatient Attender: NU BOWIE MD 03/10/2020 12:00:00 A [facility] Unknown [address] [facility] [place] [address] 03/04/2020 12:00:00 AM EST eCW1 ([facility]) Unknown [address] [facility] [place] [address] 03/02/2020 12:00:00 AM EST eCW1 ([facility]) Unknown [address] [facility] [place] [address] 02/23/2020 12:00:00 AM EST eCW1 ([facility]) Unknown [address] [facility] [place] [address] 02/23/2020 12:00:00 AM EST eCW1 ([facility]) Unknown [address] [facility] [place] [address] 02/23/2020 12:00:00 AM EST eCW1 ([facility]) Unknown [address] [facility] [place] [address] 02/08/2020 12:00:00 AM EST eCW1 ([facility]) TeleMedicine Phone E/M by Phys 21-30 Min [address] [place] [address] 01/28/2020 12:00:00 AM EST eCW1 ([facility]) Outpatient Attender: NU BOWIE MD 01/28/2020 12:00:00 A M [facility] Unknown [address] [facility] [address] 01/27/2020 12:00:00 AM EST eCW1 ([facility]) Unknown [address] [facility] Y [address] 01/27/2020 12:00:00 AM EST eCW1 ([facility]) Unknown [address] [facility] N Y [address] 01/27/2020 12:00:00 AM EST eCW1 ([facility]) Unknown [address] [facility] Y [address] 01/26/2020 12:00:00 AM EST eCW1 ([facility]) Unknown [address] [facility] Y [address] 01/25/2020 12:00:00 AM EST eCW1 ([facility]) Unknown [address] [facility] [place] [address] 01/22/2020 12:00:00 AM EST eCW1 ([facility]) Unknown [address] [facility] [place] [address] 01/20/2020 12:00:00 AM EST eCW1 ([facility]) Unknown [address] [facility] Y [address] 01/20/2020 12:00:00 AM EST eCW1 ([facility]) (BHVHLTH) [facility] Scheduled Visit [address] [place] [address] 01/19/2020 12:00:00 AM EST eCW1 ([facility]) Unknown [address] [facility] Y [address] 01/19/2020 12:00:00 AM EST eCW1 ([facility]) Unknown [address] [facility] [place] [address] 01/18/2020 12:00:00 AM EST eCW1 ([facility]) Unknown [address] [facility] [place] [address] 01/18/2020 12:00:00 AM EST eCW1 ([facility]) Outpatient [address] [facility] [place] [address] 01/15/2020 12:00:00 AM EST eCW1 ([facility]) Unknown [address] [facility] [place] [address] 01/15/2020 12:00:00 AM EST eCW1 ([facility]) Unknown [address] [facility] [place] [address] 01/14/2020 12:00:00 AM EST eCW1 ([facility]) Unknown [address] [facility] [place] [address] 01/13/2020 12:00:00 AM EST eCW1 ([facility]) Unknown [address] [facility] [place] [address] 01/13/2020 12:00:00 AM EST eCW1 ([facility]) Unknown [address] [facility] [place] [address] 01/13/2020 12:00:00 AM EST eCW1 ([facility]) Outpatient Attender: NU BOWIE MD 01/13/2020 12:00:00 A [facility] Unknown [address] [facility] [place] [address] 01/12/2020 12:00:00 AM EST eCW1 ([facility]) Unknown [address] [facility] [address] 01/12/2020 12:00:00 AM EST eCW1 ([facility]) Unknown [address] [facility] [place] [address] 01/12/2020 12:00:00 AM EST eCW1 ([facility]) Unknown [address] [facility] [place] [address] 01/11/2020 12:00:00 AM EST eCW1 ([facility]) Unknown [address] [facility] [place] [address] 01/10/2020 12:00:00 AM EST eCW1 ([facility]) Unknown [address] [facility] [place] [address] 01/05/2020 12:00:00 AM EST eCW1 ([facility]) Unknown [address] [facility] [place] [address] 01/04/2020 12:00:00 AM EST eCW1 ([facility]) Unknown [address] [facility] [place] [address] 01/02/2020 12:00:00 AM EST eCW1 ([facility]) Unknown [address] [facility] [place] [address] 01/01/2020 12:00:00 AM EST eCW1 ([facility]) Unknown [address] [facility] [place] [address] 12/31/2019 12:00:00 AM EST eCW1 ([facility]) Unknown [address] [facility] [place] [address] 12/29/2019 12:00:00 AM EST eCW1 ([facility]) Unknown [address] [facility] [place] [address] 12/28/2019 12:00:00 AM EST eCW1 ([facility]) Unknown [address] [facility] [place] [address] 12/25/2019 12:00:00 AM EST eCW1 ([facility]) Outpatient [address] [facility] [place] [address] 12/24/2019 12:00:00 AM EST eCW1 ([facility]) Unknown [address] [facility] N [place] [address] 12/24/2019 12:00:00 AM EST eCW1 ([facility]) Unknown [address] [facility] [place] [address] 12/24/2019 12:00:00 AM EST eCW1 ([facility]) Unknown [address] [facility] [place] [address] 12/24/2019 12:00:00 AM EST eCW1 ([facility]) Unknown [address] [facility] [place] [address] 12/24/2019 12:00:00 AM EST eCW1 ([facility]) Unknown [address] [facility] [place] [address] 12/23/2019 12:00:00 AM EST eCW1 ([facility]) Unknown [address] [facility] [place] [address] 12/23/2019 12:00:00 AM EST eCW1 ([facility]) Unknown [address] [facility] [place] [address] 12/23/2019 12:00:00 AM EST eCW1 ([facility]) Unknown [address] [facility] [place] [address] 12/22/2019 12:00:00 AM EST eCW1 ([facility]) Unknown [address] [facility] [place] [address] 12/22/2019 12:00:00 AM EST eCW1 ([facility]) Outpatient [address] [facility] [place] [address] 12/22/2019 12:00:00 AM EST eCW1 ([facility]) Unknown [address] [facility] [place] [address] 12/22/2019 12:00:00 AM EST eCW1 ([facility]) Unknown [address] [facility] [place] [address] 12/21/2019 12:00:00 AM EST eCW1 ([facility]) Unknown [address] [facility] [place] [address] 12/20/2019 12:00:00 AM EST eCW1 ([facility]) Unknown [address] [facility] [address] 12/18/2019 12:00:00 AM EST eCW1 ([facility]) Unknown [address] [facility] [address] 12/18/2019 12:00:00 AM EST eCW1 ([facility]) Unknown [address] [facility] [address] 12/18/2019 12:00:00 AM EST eCW1 ([facility]) Unknown [address] [facility] [address] 12/18/2019 12:00:00 AM EST eCW1 ([facility]) Outpatient [address] [facility] [address] 12/17/2019 12:00:00 AM EST eCW1 ([facility]) (PN Proc 45) Pain Procedure 45 [address] [place] [address] 12/11/2019 12:00:00 AM EDT eCW1 ([facility]) Unknown [address] [facility] [address] 12/10/2019 12:00:00 AM EDT eCW1 ([facility]) Unknown [address] [facility] Y [address] 12/10/2019 12:00:00 AM EDT eCW1 ([facility]) Unknown [address] [facility] Y [address] 12/09/2019 12:00:00 AM EDT eCW1 ([facility]) Unknown [address] [facility] [address] 12/07/2019 12:00:00 AM EDT eCW1 ([facility]) Unknown [address] [facility] [address] 12/01/2019 12:00:00 AM EDT eCW1 ([facility]) Unknown [address] [facility] Y [address] 11/30/2019 12:00:00 AM EDT eCW1 ([facility]) Outpatient [address] [facility] Y [address] 11/30/2019 12:00:00 AM EDT eCW1 ([facility]) Unknown [address] [facility] Y [address] 11/29/2019 12:00:00 AM EDT eCW1 ([facility]) Outpatient [address] [facility] [address] 11/24/2019 12:00:00 AM EDT eCW1 ([facility]) Unknown [address] [facility], [place] [address] 11/17/2019 12:00:00 AM EDT eCW1 ([facility]) (PN Proc 45) Pain Procedure 45 [address] [place] [address] 11/12/2019 12:00:00 AM EDT eCW1 ([facility]) Unknown [address] [facility] [place] [address] 11/10/2019 12:00:00 AM EDT eCW1 ([facility]) Unknown [address] [facility] [place] [address] 11/03/2019 12:00:00 AM EDT eCW1 ([facility]) Unknown [address] [facility] [place] [address] 11/03/2019 12:00:00 AM EDT eCW1 ([facility]) Unknown [address] [facility], [place] [address] 11/03/2019 12:00:00 AM EDT eCW1 ([facility]) Unknown [address] [facility], [place] [address] 11/03/2019 12:00:00 AM EDT eCW1 ([facility]) Unknown [address] [facility], [place] [address] 11/03/2019 12:00:00 AM EDT eCW1 ([facility]) Unknown [address] [facility], [place] [address] 11/03/2019 12:00:00 AM EDT eCW1 ([facility]) [facility] [address] [facility] [address] 10/09/2019 12:00:00 AM EDT eCW1 ([facility]) Outpatient Attender: Brooklyn Huber MD Main office - [place] 09/28/2019 03:10:00 PM EDT MEDENT ([facility] ) Outpatient Attender: Brooklyn Huber MD Main office - [place] 09/22/2019 11:30:00 AM EDT MEDENT ([facility] ) [facility] Center [address] [place] [address] 09/14/2019 12:00:00 AM EDT eCW1 ([facility]) Outpatient [address] [facility] [address] 09/04/2019 12:00:00 AM EDT eCW1 ([facility]) Unknown [address] [facility], [place] [address] 09/03/2019 12:00:00 AM EDT eCW1 ([facility]) Unknown [address] [facility] [place] [address] 09/01/2019 12:00:00 AM EDT eCW1 ([facility]) Outpatient [address] [facility] [place] [address] 08/31/2019 12:00:00 AM EDT eCW1 ([facility]) Unknown [address] [facility], [place] [address] 08/28/2019 12:00:00 AM EDT eCW1 ([facility]) Unknown [address] [facility] [place] [address] 08/27/2019 12:00:00 AM EDT eCW1 ([facility]) Unknown [address] [facility] [place] [address] 08/27/2019 12:00:00 AM EDT eCW1 ([facility]) Unknown [address] [facility] [place] [address] 08/26/2019 12:00:00 AM EDT eCW1 ([facility]) Outpatient [address] [facility] [place] [address] 08/25/2019 12:00:00 AM EDT eCW1 ([facility]) Outpatient Attender: PATRICK MANJARREZ NP 08/25/2019 12:00:0 0 AM EDT [facility] Unknown [address] [facility] [address] 08/19/2019 12:00:00 AM EDT eCW1 ([facility]) Outpatient Referrer: Brigid Poe NP 08/13/2019 05:20:00 AM EDT [facility] Office Visit, Est Pt., Level 3 PC [address] [place] [address] 08/13/2019 12:00:00 AM EDT eCW1 ([facility]) Outpatient [address] [facility] [place] [address] 08/04/2019 12:00:00 AM EDT eCW1 ([facility]) Unknown [address] [facility] [place] [address] 08/03/2019 12:00:00 AM EDT eCW1 ([facility]) [facility] Center [address] [place] [address] 07/30/2019 12:00:00 AM EDT eCW1 ([facility]) Outpatient Referrer: Brigid Poe NP 07/29/2019 05:54:00 AM EDT [facility] [address] [place] [address] 07/29/2019 12:00:00 AM EDT eCW1 ([facility]) Unknown [address] [facility] [place] [address] 07/28/2019 12:00:00 AM EDT eCW1 ([facility]) Unknown [address] [facility], [place] [address] 07/24/2019 12:00:00 AM EDT eCW1 ([facility] [place]) Unknown [address] [facility], [place] [address] 07/22/2019 12:00:00 AM EDT [facility]CW1 [facility] [place] Outpatient [address] [facility] Y [address] 07/14/2019 12:00:00 AM EDT eCW1 ([facility] [place]) TeleMedicine Phone E/M by Phys 11-[address] [place] [address] 07/13/2019 12:00:00 AM EDT eCW1 ([facility]) [facility] Pain [facility] [address] [place] [address] 07/13/2019 12:00:00 AM EDT eCW1 ([facility] [place]) [facility] [address] [place] [phone] 07/07/2019 12:00:00 AM EDT eCW1 ([facility] [place]) JULIANE Thompson [address] [facility] [address] 06/25/2019 12:00:00 AM EDT eCW1 ([facility] [place]) [facility] [address] [place] [address] 06/24/2019 12:00:00 AM EDT eCW1 ([facility] [place]) [facility] [address] [place] [address] 06/16/2019 12:00:00 AM EDT eCW1 ([facility] [place]) [facility] [address] [place] [address] 06/12/2019 12:00:00 AM EDT eCW1 ([facility] [place]) [facility] [address] [place] [phone] 06/03/2019 12:00:00 AM EDT eCW1 ([facility]) JULIANE Thompson [address] [facility] Y [address] 06/03/2019 12:00:00 AM EDT eCW1 ([facility]) Outpatient Attender: NU BOWIE MD 06/03/2019 12:00:00 A M [facility] [address] [place] [address] 05/28/2019 12:00:00 AM EDT eCW1 ([facility]) [facility] [address] [place] [phone] 05/27/2019 12:00:00 AM EDT eCW1 ([facility]) [facility] [address] [place] [phone] 05/27/2019 12:00:00 AM EDT eCW1 ([facility]) [facility] [address] [place] [address] 05/22/2019 12:00:00 AM EDT eCW1 ([facility]) [facility] [address] [place] [phone] 05/21/2019 12:00:00 AM EDT eCW1 ([facility]) [facility] [address] [place] [address] 05/20/2019 12:00:00 AM EDT eCW1 ([facility]) [facility] [address] [place] [address] 05/18/2019 12:00:00 AM EDT eCW1 ([facility]) [facility] Dermatology [address] [place] [phone] 05/15/2019 12:00:00 AM EDT eCW1 ([facility]) [facility] [address] [place] [phone] 05/12/2019 12:00:00 AM EDT eCW1 ([facility]) [facility] Pain Center [address] [place] [phone] 05/12/2019 12:00:00 AM EDT eCW1 ([facility]) [facility] Jay [address] [facility] [address] 05/08/2019 12:00:00 AM EDT eCW1 ([facility]) [facility] Jay [address] [facility] Y [address] 05/05/2019 12:00:00 AM EDT eCW1 ([facility]) [facility] Pain Center [address] [place] [phone] 05/01/2019 12:00:00 AM EDT eCW1 ([facility]) [facility] Jay [address] [place] [address] Y [address] 04/30/2019 12:00:00 AM EDT eCW1 ([facility]) [facility] Pain Center [address] [place] [phone] 04/30/2019 12:00:00 AM EDT eCW1 ([facility]) [facility] [address] [place] [phone] 04/21/2019 12:00:00 AM EDT eCW1 ([facility]) [facility] [address] [place] [phone] 04/16/2019 12:00:00 AM EST eCW1 ([facility]) [facility] Jay [address] [facility] Y [address] 04/15/2019 12:00:00 AM EST eCW1 ([facility]) [facility] Jay [address] [place] [address] Y [address] 04/14/2019 12:00:00 AM EST eCW1 ([facility]) [facility] [address] [place] [phone] 04/09/2019 12:00:00 AM EST eCW1 ([facility]) [facility] [address] [place] [phone] 04/08/2019 12:00:00 AM EST eCW1 ([facility] [place]) Outpatient Referrer: Brigid Poe NP 04/07/2019 08:15:00 AM EST [facility] Thompson [address] [place] [phone] 04/07/2019 12:00:00 AM EST [facility]CW1 ([facility] [place] [address] [address] 04/06/2019 12:00:00 AM EST eCW1 ([facility] [place]) [facility] [facility] [address] [place] [address] Y [phone] 04/02/2019 12:00:00 AM EST [facility]CW1 [facility] Outpatient Attender: NU BOWIE MD [id number] 2019 12:00:00 AM EST - 04/20/2019 07:15:28 AM EDT Lesion of ulnar nerve, right upper limb [facility] Lesion of ulnar nerve, right upper limb [facility] [place] [address] [place] [address], [place] [phone] 03/31/2019 12:00:00 AM EST eCW1 ([facility] [place] [address] [place] [phone] 03/27/2019 12:00:00 AM EST eCW1 ([facility] [place] [place] [address] [place] [address] Y [phone] 03/26/2019 12:00:00 AM EST eCW1 ([facility] [place] [address] [place] [phone] 03/26/2019 12:00:00 AM EST [facility]CW1 ([facility] [place] [address] [place] [phone] 03/25/2019 12:00:00 AM EST [facility]CW1 [facility] [place] [address] [place] [phone] 03/25/2019 12:00:00 AM EST eCW1 ([facility] [place]) [facility] [address] [place] [phone] 03/23/2019 12:00:00 AM EST eCW1 ([facility]) [facility] [address] [place] [phone] 03/10/2019 12:00:00 AM EST eCW1 ([facility]) Outpatient Attender: NU BOWIE MD 03/05/2019 12:00[facility] [address] [place] [phone] 03/02/2019 12:00:00 AM EST eCW1 ([facility]) [facility] [address] [place] [address] 02/27/2019 12:00:00 AM EST eCW1 ([facility]) [facility] [address] [place] [phone] 02/24/2019 12:00:00 AM EST eCW1 ([facility]) [facility] [address] [place] [phone] 02/23/2019 12:00:00 AM EST eCW1 ([facility]) [facility] [address] [place] [phone] 02/16/2019 12:00:00 AM EST eCW1 ([facility]) [facility] [address] [place] [phone] 02/13/2019 12:00:00 AM EST eCW1 ([facility]) [facility] [address] [place] [phone] 02/13/2019 12:00:00 AM EST eCW1 ([facility]) [facility] [address] [place] [phone] 02/12/2019 12:00:00 AM EST eCW1 ([facility]) [facility] [address] [place] [phone] 01/23/2019 12:00:00 AM EST eCW1 ([facility]) [facility] [address] [place] [address] 01/19/2019 12:00:00 AM EST eCW1 ([facility]) [facility] [address] [place] [address] 01/14/2019 12:00:00 AM EST eCW1 ([facility]) Immunizations Vaccine Date Status Description Data Source(s) influenza, recombinant, quadrIvalent,injectable, prese rvative free 01/15/2020 10:57:00 AM EST completed eCW1 ([facility]) influenza, recombinant, quadrIvalent,injectable, prese rvative free 01/15/2020 10:57:00 AM EST completed eCW1 ([facility]) influenza, recombinant, quadrIvalent,injectable, prese rvative free 01/15/2020 10:57:00 AM EST completed eCW1 ([facility]) influenza, recombinant, quadrIvalent,injectable, prese rvative free 01/15/2020 10:57:00 AM EST completed eCW1 ([facility]) influenza, recombinant, quadrIvalent,injectable, prese rvative free 01/15/2020 10:57:00 AM EST completed eCW1 ([facility]) influenza, recombinant, quadrIvalent,injectable, prese rvative free 01/15/2020 10:57:00 AM EST completed eCW1 ([facility]) influenza, recombinant, quadrIvalent,injectable, prese rvative free 01/15/2020 10:57:00 AM EST completed eCW1 ([facility]) influenza, recombinant, quadrIvalent,injectable, prese rvative free 01/15/2020 10:57:00 AM EST completed eCW1 ([facility]) influenza, recombinant, quadrIvalent,injectable, prese rvative free 01/15/2020 10:57:00 AM EST completed eCW1 ([facility]) influenza, recombinant, quadrIvalent,injectable, prese rvative free 01/15/2020 10:57:00 AM EST completed eCW1 ([facility]) influenza, recombinant, quadrIvalent,injectable, prese rvative free 01/15/2020 10:57:00 AM EST completed eCW1 ([facility]) influenza, recombinant, quadrIvalent,injectable, prese rvative free 01/15/2020 10:57:00 AM EST completed eCW1 ([facility]) influenza, recombinant, quadrIvalent,injectable, prese rvative free 01/15/2020 10:57:00 AM EST completed eCW1 ([facility]) influenza, recombinant, quadrIvalent,injectable, prese rvative free 01/15/2020 10:57:00 AM EST completed eCW1 ([facility]) influenza, recombinant, quadrIvalent,injectable, prese rvative free 01/15/2020 10:57:00 AM EST completed eCW1 ([facility]) influenza, recombinant, quadrIvalent,injectable, prese rvative free 01/15/2020 10:57:00 AM EST completed eCW1 ([facility]) influenza, recombinant, quadrIvalent,injectable, prese rvative free 01/15/2020 10:57:00 AM EST completed eCW1 ([facility]) influenza, recombinant, quadrIvalent,injectable, prese rvative free 01/15/2020 10:57:00 AM EST completed eCW1 ([facility]) influenza, recombinant, quadrIvalent,injectable, prese rvative free 01/15/2020 10:57:00 AM EST completed eCW1 ([facility]) influenza, recombinant, quadrIvalent,injectable, prese rvative free 01/15/2020 10:57:00 AM EST completed eCW1 ([facility]) influenza, recombinant, quadrIvalent,injectable, prese rvative free 01/15/2020 10:57:00 AM EST completed eCW1 ([facility]) influenza, recombinant, quadrIvalent,injectable, prese rvative free 01/15/2020 10:57:00 AM EST completed eCW1 ([facility]) influenza, recombinant, quadrIvalent,injectable, prese rvative free 01/15/2020 10:57:00 AM EST completed eCW1 ([facility]) influenza, recombinant, quadrIvalent,injectable, prese rvative free 01/15/2020 10:57:00 AM EST completed eCW1 ([facility]) influenza, recombinant, quadrIvalent,injectable, prese rvative free 01/15/2020 10:57:00 AM EST completed eCW1 ([facility]) Medications Medication Brand Name Start Date Product Form Dose Route Admi nistrative Instructions Pharmacy Instructions Status Indications Reaction Description Data Source(s) olanzapine 7.5 MG Oral Tablet OLANZAPINE 03/08/2020 12:00:00 AM EST ta blet 7 TAKE ONE TABLET BY MOUTH AT BEDTIME FOR PSYCHOSIS TAKE ONE TABLET BY MOUTH AT BEDTIME FOR PSYCHOSIS SOLD: 03/08/2020 [facility] 2 mg 03/07/2020 12:00:00 AM EST tablet 4 TAKE ONE HALF TABLET BY MOUTH DAILY MAXIMUM DAILY DOSE = ONE HALF TABLET TAKE ONE HALF TABLET BY MOUTH DAILY MAXI MUM DAILY DOSE = ONE HALF TABLET SOLD: 03/07/2020 [facility] olanzapine 10 MG Oral Tablet OLANZAPINE 03/07/2020 12:00:00 AM EST tab let 7 TAKE ONE TABLET BY MOUTH AT BEDTIME FOR PSYCHOSIS TAKE ONE TABLET BY MOUTH AT BEDTIME FOR PSYCHOSIS SOLD: 03/07/2020 [facility] olanzapine 10 MG Oral Tablet OLANZAPINE 03/07/2020 12:00:00 AM EST tab let 7 TAKE ONE TABLET BY MOUTH AT BEDTIME FOR PSYCHOSIS TAKE ONE TABLET BY MOUTH AT BEDTIME FOR PSYCHOSIS SOLD: 03/13/2020 [facility] Amitriptyline Hydrochloride 25 MG Oral Tablet AMITRIPTYLINE HCL 03/07/2020 12:00:00 AM EST tablet 7 TAKE ONE TABLET BY MOUTH AT BEDTIME FOR MOOD/SLEEP TAKE ONE TABLET BY MOUTH AT BEDTIME FOR MOOD/SLEEP SOLD: 03/07/2020 [facility] buspirone hydrochloride 10 MG Oral Tablet BUSPIRONE HCL 03/07/2020 12:00:00 AM EST tablet 14 TAKE ONE TABLET BY MOUTH TWI CE A DAY FOR ANXIETY TAKE ONE TABLET BY MOUTH TWICE A DAY FOR ANXIETY SOLD: 03/13/2020 [facility] buspirone hydrochloride 10 MG Oral Tablet BUSPIRONE HCL 03/07/2020 12:00:00 AM EST tablet 14 TAKE ONE TABLET BY MOUTH TWI CE A DAY FOR ANXIETY TAKE ONE TABLET BY MOUTH TWICE A DAY FOR ANXIETY SOLD: 03/07/2020 [facility] 5 mg 03/07/2020 12:00:00 AM EST tablet 14 TAKE ONE TABLET BY MOUTH TWICE A DAY NEEDED FOR BREAKTHROUGH PAIN MAXIMUM DAILY DOSE = 2 TAKE ONE TABLET BY MOUTH TWICE A DAY NEEDED FOR BREAKTHROUGH PAIN MAXIMUM DAILY DOSE = 2 SOLD: 03/07/2020 [facility] 50 mg 03/07/2020 12:00:00 AM EST tablet 14 TAKE TWO TABLET BY MOUTH AT BEDTIME FOR MOOD/SLEEP TAKE TWO TABLET BY MOUTH AT BEDTIME FOR MOOD/SLEEP NEIL [facility] 300 mg 03/01/2020 12:00:00 AM EST capsule 30 TAKE ONE CAPSULE BY MOUTH EVERY DAY IN THE MORNING DIRECTED TAKE ONE CAPSULE BY MOUTH EVERY DAY IN T HE MORNING DIRECTED SOLD: 03/04/2020 [facility] 300 mg 03/01/2020 12:00:00 AM EST capsule 60 TAKE TWO CAPSULES BY MOUTH EVERY DAY IN THE EVENING USE DIRECTED TAKE TWO CAPSULES BY MOUTH EVERY DAY IN THE EVENING USE DIRECTED SOLD: 03/04/2020 [facility] 10-325 mg 02/24/2020 12:00:00 AM EST [...] DOSE = 3 SOLD: 02/24/2020 [facility] Amitriptyline Hydrochloride 25 MG Oral Tablet AMITRIPTYLINE HCL 02/24/2020 12:00:00 AM EST tablet 150 TAKE 5 TABLETS BY MOUTH O NCE A DAY TAKE 5 TABLETS BY MOUTH ONCE A DAY SOLD: 02/24/2020 [facility] Acetaminophen 325 MG / Oxycodone Hydroch loride 10 MG Oral Tablet [Percocet] Percocet 10-325 MG Percocet 10-325 MG 02/23/2020 12:00:00 AM EST 1.0 {tablet_as_needed} active Percocet 10-3 25 MG eCW1 ([facility]) Morphine Sulfate 15 MG Oral Tablet Morphine Sulfate 15 MG 12:00:00 AM EST 1.0 {tablet_as_needed} active M orphine Sulfate 15 MG eCW1 ([facility]) Acetaminophen 325 MG / Oxycodone Hydroch loride 10 MG Oral Tablet [Percocet] Percocet 10-325 MG Percocet 10-325 MG 02/23/2020 12:00:00 AM EST 1.0 {tablet_as_needed} active Percocet 10-3 25 MG eCW1 ([facility]) Morphine Sulfate 15 MG Oral Tablet Morphine Sulfate 15 MG 12:00:00 AM EST 1.0 {tablet_as_needed} active M orphine Sulfate 15 MG eCW1 ([facility]) Acetaminophen 325 MG / Oxycodone Hydroch loride 10 MG Oral Tablet [Percocet] Percocet 10-325 MG Percocet 10-325 MG 02/23/2020 12:00:00 AM EST 1.0 {tablet_as_needed} active Percocet 10-3 25 MG eCW1 ([facility]) Morphine Sulfate 15 MG Oral Tablet Morphine Sulfate 15 MG 12:00:00 AM EST 1.0 {tablet_as_needed} active M orphine Sulfate 15 MG eCW1 ([facility]) Morphine Sulfate 15 MG Oral Tablet Morphine Sulfate 15 MG 12:00:00 AM EST 1.0 {tablet_as_needed} active M orphine Sulfate 15 MG eCW1 ([facility]) Acetaminophen 325 MG / Oxycodone Hydroch loride 10 MG Oral Tablet [Percocet] Percocet 10-325 MG Percocet 10-325 MG 02/23/2020 12:00:00 AM EST 1.0 {tablet_as_needed} active Percocet 10-3 25 MG eCW1 ([facility]) Acetaminophen 325 MG / Oxycodone Hydroch loride 10 MG Oral Tablet [Percocet] Percocet 10-325 MG Percocet 10-325 MG 02/23/2020 12:00:00 AM EST 1.0 {tablet_as_needed} active Percocet 10-3 25 MG eCW1 ([facility]) Morphine Sulfate 15 MG Oral Tablet Morphine Sulfate 15 MG 12:00:00 AM EST 1.0 {tablet_as_needed} active M orphine Sulfate 15 MG eCW1 ([facility]) Budesonide 180 MCG/ACT UNK 02/16/2020 12:00:00 AM EST 1.0 {puff } active Budesonide 180 MCG/ACT eCW1 ([facility]) Budesonide 180 MCG/ACT UNK 02/16/2020 12:00:00 AM EST 1.0 {puff } active Budesonide 180 MCG/ACT eCW1 ([facility]) Budesonide 180 MCG/ACT UNK 02/16/2020 12:00:00 AM EST 1.0 {puff } active Budesonide 180 MCG/ACT eCW1 ([facility]) Budesonide 180 MCG/ACT UNK 02/16/2020 12:00:00 AM EST 1.0 {puff } active Budesonide 180 MCG/ACT eCW1 ([facility]) Budesonide 180 MCG/ACT UNK 02/16/2020 12:00:00 AM EST 1.0 {puff } active Budesonide 180 MCG/ACT eCW1 ([facility]) 2 mg 02/09/2020 12:00:00 AM EST tablet [...] = 2 & 1/2 TABLETS SOLD: 02/09/2020 [facility] Amitriptyline Hydrochloride 25 MG Oral [...] active Ipratropium-Albuterol 0.5-2.5 (3) MG/3ML eCW1 ([facility]) Albuterol 0.833 MG/ML / Ipratropium Brom krish 0.167 MG/ML Inhalant Solution Ipratropium-Albuterol 0.5-2.5 (3) MG/3ML Ipratropium-Albuterol 0.5-2.5 (3) MG/3ML 01/28/2020 12:00:00 AM EST 3.0 {ml_as_needed} active Ipratropium-Albuterol 0.5-2.5 (3) MG/3ML eCW1 ([facility]) Albuterol 0.833 MG/ML / Ipratropium Brom krish 0.167 MG/ML Inhalant Solution Ipratropium-Albuterol 0.5-2.5 (3) MG/3ML Ipratropium-Albuterol 0.5-2.5 (3) MG/3ML 01/28/2020 12:00:00 AM EST 3.0 {ml_as_needed} active Ipratropium-Albuterol 0.5-2.5 (3) MG/3ML eCW1 ([facility]) Albuterol 0.833 MG/ML / Ipratropium Brom krish 0.167 MG/ML Inhalant Solution Ipratropium-Albuterol 0.5-2.5 (3) MG/3ML Ipratropium-Albuterol 0.5-2.5 (3) MG/3ML 01/28/2020 12:00:00 AM EST 3.0 {ml_as_needed} active Ipratropium-Albuterol 0.5-2.5 (3) MG/3ML eCW1 ([facility]) Albuterol 0.833 MG/ML / Ipratropium Brom krish 0.167 MG/ML Inhalant Solution Ipratropium-Albuterol 0.5-2.5 (3) MG/3ML Ipratropium-Albuterol 0.5-2.5 (3) MG/3ML 01/28/2020 12:00:00 AM EST 3.0 {ml_as_needed} active Ipratropium-Albuterol 0.5-2.5 (3) MG/3ML eCW1 ([facility]) Albuterol 0.833 MG/ML / Ipratropium Brom krish 0.167 MG/ML Inhalant Solution Ipratropium-Albuterol 0.5-2.5 (3) MG/3ML Ipratropium-Albuterol 0.5-2.5 (3) MG/3ML 01/28/2020 12:00:00 AM EST 3.0 {ml_as_needed} active Ipratropium-Albuterol 0.5-2.5 (3) MG/3ML eCW1 ([facility]) Albuterol 0.833 MG/ML / Ipratropium Brom krish 0.167 MG/ML Inhalant Solution Ipratropium-Albuterol 0.5-2.5 (3) MG/3ML Ipratropium-Albuterol 0.5-2.5 (3) MG/3ML 01/28/2020 12:00:00 AM EST 3.0 {ml_as_needed} active Ipratropium-Albuterol 0.5-2.5 (3) MG/3ML eCW1 ([facility]) Albuterol 0.833 MG/ML / Ipratropium Brom krish 0.167 MG/ML Inhalant Solution Ipratropium-Albuterol 0.5-2.5 (3) MG/3ML Ipratropium-Albuterol 0.5-2.5 (3) MG/3ML 01/28/2020 12:00:00 AM EST 3.0 {ml_as_needed} active Ipratropium-Albuterol 0.5-2.5 (3) MG/3ML eCW1 ([facility]) Albuterol 0.833 MG/ML / Ipratropium Brom krish 0.167 MG/ML Inhalant Solution Ipratropium-Albuterol 0.5-2.5 (3) MG/3ML Ipratropium-Albuterol 0.5-2.5 (3) MG/3ML 01/28/2020 12:00:00 AM EST 3.0 {ml_as_needed} active Ipratropium-Albuterol 0.5-2.5 (3) MG/3ML eCW1 ([facility]) Albuterol 0.833 MG/ML / Ipratropium Brom krish 0.167 MG/ML Inhalant Solution Ipratropium-Albuterol 0.5-2.5 (3) MG/3ML Ipratropium-Albuterol 0.5-2.5 (3) MG/3ML 01/28/2020 12:00:00 AM EST 3.0 {ml_as_needed} active Ipratropium-Albuterol 0.5-2.5 (3) MG/3ML eCW1 ([facility]) Albuterol 0.833 MG/ML / Ipratropium Brom krish 0.167 MG/ML Inhalant Solution Ipratropium-Albuterol 0.5-2.5 (3) MG/3ML Ipratropium-Albuterol 0.5-2.5 (3) MG/3ML 01/28/2020 12:00:00 AM EST 3.0 {ml_as_needed} active Ipratropium-Albuterol 0.5-2.5 (3) MG/3ML eCW1 ([facility]) Morphine Sulfate 15 MG Oral Tablet Morphine Sulfate 15 MG 12:00:00 AM EST 1.0 {tablet_as_needed} active M orphine Sulfate 15 MG eCW1 ([facility]) Morphine Sulfate 15 MG Oral Tablet Morphine Sulfate 15 MG 12:00:00 AM EST 1.0 {tablet_as_needed} active M orphine Sulfate 15 MG eCW1 ([facility]) Morphine Sulfate 15 MG Oral Tablet Morphine Sulfate 15 MG 12:00:00 AM EST 1.0 {tablet_as_needed} active M orphine Sulfate 15 MG eCW1 ([facility]) Morphine Sulfate 15 MG Oral Tablet Morphine Sulfate 15 MG 12:00:00 AM EST 1.0 {tablet_as_needed} active M orphine Sulfate 15 MG eCW1 ([facility]) Morphine Sulfate 15 MG Extended Release Oral Tablet Mo rphine Sulfate ER 15 MG Morphine Sulfate ER 15 MG 01/27/2020 12:00:00 AM EST 1.0 {tablet} active Morphine Sulfate ER 15 MG eCW1 ( [facility]) Morphine Sulfate 15 MG Oral Tablet Morphine Sulfate 15 MG 12:00:00 AM EST 1.0 {tablet_as_needed} active M orphine Sulfate 15 MG eCW1 ([facility]) Morphine Sulfate ER 15 MG UNK 01/27/2020 12:00:00 AM EST 1.0 {tablet} active Morphine Sulfate ER 15 MG eCW1 ( [facility]) Morphine Sulfate ER 15 MG UNK 01/27/2020 12:00:00 AM EST 1.0 {tablet} active Morphine Sulfate ER 15 MG eCW1 ( [facility]) Morphine Sulfate 15 MG Oral Tablet Morphine Sulfate 15 MG 12:00:00 AM EST 1.0 {tablet_as_needed} active M orphine Sulfate 15 MG eCW1 ([facility]) Morphine Sulfate 15 MG Oral Tablet Morphine Sulfate 15 MG 12:00:00 AM EST 1.0 {tablet_as_needed} active M orphine Sulfate 15 MG eCW1 ([facility]) Morphine Sulfate 15 MG Oral Tablet Morphine Sulfate 15 MG 12:00:00 AM EST 1.0 {tablet_as_needed} active M orphine Sulfate 15 MG eCW1 ([facility]) 15 mg 01/27/2020 12:00:00 AM EST tablet [...] Sulfate ER 15 MG eCW1 ( [facility]) Morphine Sulfate ER 15 MG UNK 01/26/2020 12:00:00 AM EST 1.0 {tablet} active Morphine Sulfate ER 15 MG eCW1 ( [facility]) Acetaminophen 325 MG / Oxycodone Hydroch loride 10 MG Oral Tablet [Percocet] Percocet 10-325 MG Percocet 10-325 MG 01/22/2020 12:00:00 AM EST 1.0 {tablet_as_needed} active Percocet 10-3 25 MG eCW1 ([facility]) Acetaminophen 325 MG / Oxycodone Hydroch loride 10 MG Oral Tablet [Percocet] Percocet 10-325 MG Percocet 10-325 MG 01/22/2020 12:00:00 AM EST 1.0 {tablet_as_needed} suspended Percocet 10 -325 MG eCW1 ([facility]) Acetaminophen 325 MG / Oxycodone Hydroch loride 10 MG Oral Tablet [Percocet] Percocet 10-325 MG Percocet 10-325 MG 01/22/2020 12:00:00 AM EST 1.0 {tablet_as_needed} suspended Percocet 10 -325 MG eCW1 ([facility]) Acetaminophen 325 MG / Oxycodone Hydroch loride 10 MG Oral Tablet [Percocet] Percocet 10-325 MG Percocet 10-325 MG 01/22/2020 12:00:00 AM EST 1.0 {tablet_as_needed} active Percocet 10-3 25 MG eCW1 ([facility]) Acetaminophen 325 MG / Oxycodone Hydroch loride 10 MG Oral Tablet [Percocet] Percocet 10-325 MG Percocet 10-325 MG 01/22/2020 12:00:00 AM EST 1.0 {tablet_as_needed} active Percocet 10-3 25 MG eCW1 ([facility]) Acetaminophen 325 MG / Oxycodone Hydroch loride 10 MG Oral Tablet [Percocet] Percocet 10-325 MG Percocet 10-325 MG 01/22/2020 12:00:00 AM EST 1.0 {tablet_as_needed} active Percocet 10-3 25 MG eCW1 ([facility]) Acetaminophen 325 MG / Oxycodone Hydroch loride 10 MG Oral Tablet [Percocet] Percocet 10-325 MG Percocet 10-325 MG 01/22/2020 12:00:00 AM EST 1.0 {tablet_as_needed} suspended Percocet 10 -325 MG eCW1 ([facility]) 10-325 mg 01/22/2020 12:00:00 AM EST tablet 90 TAKE 1 TABLET BY MOUTH EVERY 6 HOURS NEEDED MAXIMUM DAILY DOSE = 4 TABLETS (SHOULD LAST 30 DAYS) TAKE 1 TABLET BY MOUTH EVERY 6 HOURS NEEDED MAXIMUM DAILY DOSE = 4 TABLETS (SHOULD LAST 30 DAYS) SOLD: 01/22/2020 [facility] 2 mg 01/22/2020 12:00:00 AM EST tablet [...] suspended Percocet 10 -325 MG eCW1 ([facility]) Acetaminophen 325 MG / Oxycodone Hydroch loride 10 MG Oral Tablet [Percocet] Percocet 10-325 MG Percocet 10-325 MG 01/22/2020 12:00:00 AM EST 1.0 {tablet_as_needed} active Percocet 10-3 25 MG eCW1 ([facility]) Acetaminophen 325 MG / Oxycodone Hydroch loride 10 MG Oral Tablet [Percocet] Percocet 10-325 MG Percocet 10-325 MG 01/22/2020 12:00:00 AM EST 1.0 {tablet_as_needed} active Percocet 10-3 25 MG eCW1 ([facility]) Acetaminophen 325 MG / Oxycodone Hydroch loride 10 MG Oral Tablet [Percocet] Percocet 10-325 MG Percocet 10-325 MG 01/22/2020 12:00:00 AM EST 1.0 {tablet_as_needed} suspended Percocet 10 -325 MG eCW1 ([facility]) Acetaminophen 325 MG / Oxycodone Hydroch loride 10 MG Oral Tablet [Percocet] Percocet 10-325 MG Percocet 10-325 MG 01/22/2020 12:00:00 AM EST 1.0 {tablet_as_needed} suspended Percocet 10 -325 MG eCW1 ([facility]) Acetaminophen 325 MG / Oxycodone Hydroch loride 10 MG Oral Tablet [Percocet] Percocet 10-325 MG Percocet 10-325 MG 01/22/2020 12:00:00 AM EST 1.0 {tablet_as_needed} active Percocet 10-3 25 MG eCW1 ([facility]) Morphine Sulfate ER 15 MG UNK 01/20/2020 12:00:00 AM EST 1.0 {tablet} active Morphine Sulfate ER 15 MG eCW1 ( [facility]) Morphine Sulfate ER 15 MG UNK 01/20/2020 12:00:00 AM EST 1.0 {tablet} active Morphine Sulfate ER 15 MG eCW1 ( [facility]) Morphine Sulfate ER 15 MG UNK 01/20/2020 12:00:00 AM EST 1.0 {tablet} active Morphine Sulfate ER 15 MG eCW1 ( [facility]) 1 gram 01/20/2020 12:00:00 AM EST tablet 90 TAKE ONE TABLET BY MOUTH THREE TIMES A DAY ON EMPTY STOMACH BEFORE MEAL TAKE ONE TABLET BY MOUTH THREE TIMES A DAY ON EMPTY STOMACH BEFORE MEAL SOLD: 01/21/2020 [facility] Morphine Sulfate ER 15 MG UNK 01/20/2020 12:00:00 AM EST 1.0 {tablet} active Morphine Sulfate ER 15 MG eCW1 ( [facility]) Morphine Sulfate ER 15 MG UNK 01/20/2020 12:00:00 AM EST 1.0 {tablet} active Morphine Sulfate ER 15 MG eCW1 ( [facility]) Morphine Sulfate ER 15 MG UNK 01/20/2020 12:00:00 AM EST 1.0 {tablet} active Morphine Sulfate ER 15 MG eCW1 ( [facility]) Morphine Sulfate ER 15 MG UNK 01/20/2020 12:00:00 AM EST 1.0 {tablet} active Morphine Sulfate ER 15 MG eCW1 ( [facility]) 1 gram 01/16/2020 12:00:00 AM EST tablet 30 TAKE ONE TABLET BY MOUTH ON AN EMPTY STOMACH BEFORE EACH MEAL TAKE ONE TABLET BY MOUTH ON AN EMPTY STO MACH BEFORE EACH MEAL SOLD: 01/20/2020 [facility] 40 mg 01/16/2020 12:00:00 AM EST capsule,delayed release (DR/EC) 30 TAKE ONE CAPSULE BY MOUTH 30 MINUTES BEFORE MORNING MEAL TAKE ONE CAPSULE BY MOUTH 30 MINUTES BEFORE MORNING MEAL SOLD: 01/20/2020 [facility] duloxetine 30 MG Delayed Release Oral Capsule [Cymbalt a] Cymbalta 30 MG Cymbalta 30 MG 01/13/2020 12:00:00 AM EST 1.0 {capsule} acti ve Cymbalta 30 MG eCW1 (Formerly [facility]) duloxetine 30 MG Delayed Release Oral Capsule [Cymbalt a] Cymbalta 30 MG Cymbalta 30 MG 01/13/2020 12:00:00 AM EST 1.0 {capsule} acti ve Cymbalta 30 MG eCW1 (Formerly [facility]) 30 mg 01/13/2020 12:00:00 AM EST capsule,delayed release (DR/EC) 60 TAKE ONE CAPSULE BY MOUTH TWICE A DAY TAKE ONE CAPSULE BY MOUTH TWICE A DAY SOLD: 01/20/2020 [facility] duloxetine 30 MG Delayed Release Oral Capsule [Cymbalt a] Cymbalta 30 MG Cymbalta 30 MG 01/13/2020 12:00:00 AM EST 1.0 {capsule} acti ve Cymbalta 30 MG eCW1 (Formerly [facility]) duloxetine 30 MG Delayed Release Oral Capsule [Cymbalt a] Cymbalta 30 MG Cymbalta 30 MG 01/13/2020 12:00:00 AM EST 1.0 {capsule} acti ve Cymbalta 30 MG eCW1 (Formerly [facility]) 30 mg 01/12/2020 12:00:00 AM EST capsule,delayed [...] TABLETS BY MOUTH EVERY DAY SOLD: 01/05/2020 [facility] 81 mg 01/03/2020 12:00:00 AM EST [...] Spiriva R espimat 1.25 MCG/ACT eCW1 (Formerly [facility]) Spiriva Respimat 1.25 MCG/ACT Spiriva Respimat 1.25 MCG/ACT 12/29/2019 12:00:00 AM EST 2.0 {puffs} active Spiriva Resp imat 1.25 MCG/ACT eCW1 (Formerly [facility]) 250 mg 12/29/2019 12:00:00 AM EST tablet 30 TAKE ONE-HALF TABLET BY MOUTH TWICE A DAY TAKE ONE-HALF TABLET BY MOUTH TWICE A DAY SOLD: 12/29/2019 [facility] Spiriva Respimat 1.25 MCG/ACT Spiriva Respimat 1.25 MCG/ACT 12/29/2019 12:00:00 AM EST 2.0 {puffs} active Spiriva Resp imat 1.25 MCG/ACT eCW1 (Formerly [facility]) Spiriva Respimat 1.25 MCG/ACT Spiriva Respimat 1.25 MCG/ACT 12/29/2019 12:00:00 AM EST 2.0 {puffs} active Spiriva Resp imat 1.25 MCG/ACT eCW1 (Formerly [facility]) Spiriva Respimat 1.25 MCG/ACT Spiriva Respimat 1.25 MCG/ACT 12/29/2019 12:00:00 AM EST 2.0 {puffs} active Spiriva Resp imat 1.25 MCG/ACT eCW1 (Formerly [facility]) Spiriva Respimat 1.25 MCG/ACT Spiriva Respimat 1.25 MCG/ACT 12/29/2019 12:00:00 AM EST 2.0 {puffs} active Spiriva Resp imat 1.25 MCG/ACT eCW1 [facility] [place] Sp[facility]iva Respimat 1.25 MCG/ACT Spiriva Respimat 1.25 MCG/ACT 12/29/2019 12:00:00 AM EST 2.0 {puffs} active Spiriva Resp imat 1.25 MCG/ACT eCW1 ([facility]) Spiriva Respimat 1.25 MCG/ACT Spiriva Respimat 1.25 MCG/ACT 12/29/2019 12:00:00 AM EST 2.0 {puffs} suspended Spiriva R espimat 1.25 MCG/ACT eCW1 ([facility]) Spiriva Respimat 1.25 MCG/ACT Spiriva Respimat 1.25 MCG/ACT 12/29/2019 12:00:00 AM EST 2.0 {puffs} suspended Spiriva R espimat 1.25 MCG/ACT eCW1 ([facility]) Spiriva Respimat 1.25 MCG/ACT Spiriva Respimat 1.25 MCG/ACT 12/29/2019 12:00:00 AM EST 2.0 {puffs} active Spiriva Resp imat 1.25 MCG/ACT eCW1 ([facility]) Spiriva Respimat 1.25 MCG/ACT Spiriva Respimat 1.25 MCG/ACT 12/29/2019 12:00:00 AM EST 2.0 {puffs} active Spiriva Resp imat 1.25 MCG/ACT eCW1 ([facility]) Spiriva Respimat 1.25 MCG/ACT Spiriva Respimat 1.25 MCG/ACT 12/29/2019 12:00:00 AM EST 2.0 {puffs} active Spiriva Resp imat 1.25 MCG/ACT eCW1 ([facility]) Spiriva Respimat 1.25 MCG/ACT Spiriva Respimat 1.25 MCG/ACT 12/29/2019 12:00:00 AM EST 2.0 {puffs} active Spiriva Resp imat 1.25 MCG/ACT eCW1 ([facility]) Spiriva Respimat 1.25 MCG/ACT Spiriva Respimat 1.25 MCG/ACT 12/29/2019 12:00:00 AM EST 2.0 {puffs} active Spiriva Resp imat 1.25 MCG/ACT eCW1 ([facility]) Spiriva Respimat 1.25 MCG/ACT Spiriva Respimat 1.25 MCG/ACT 12/29/2019 12:00:00 AM EST 2.0 {puffs} suspended Spiriva R espimat 1.25 MCG/ACT eCW1 ([facility]) Spiriva Respimat 1.25 MCG/ACT Spiriva Respimat 1.25 MCG/ACT 12/29/2019 12:00:00 AM EST 2.0 {puffs} active Spiriva Resp imat 1.25 MCG/ACT eCW1 ([facility]) Spiriva Respimat 1.25 MCG/ACT Spiriva Respimat 1.25 MCG/ACT 12/29/2019 12:00:00 AM EST 2.0 {puffs} active Spiriva Resp imat 1.25 MCG/ACT eCW1 ([facility]) Spiriva Respimat 1.25 MCG/ACT Spiriva Respimat 1.25 MCG/ACT 12/29/2019 12:00:00 AM EST 2.0 {puffs} active Spiriva Resp imat 1.25 MCG/ACT eCW1 ([facility]) Spiriva Respimat 1.25 MCG/ACT Spiriva Respimat 1.25 MCG/ACT 12/29/2019 12:00:00 AM EST 2.0 {puffs} active Spiriva Resp imat 1.25 MCG/ACT eCW1 ([facility]) Spiriva Respimat 1.25 MCG/ACT Spiriva Respimat 1.25 MCG/ACT 12/29/2019 12:00:00 AM EST 2.0 {puffs} active Spiriva Resp imat 1.25 MCG/ACT eCW1 ([facility]) Spiriva Respimat 1.25 MCG/ACT Spiriva Respimat 1.25 MCG/ACT 12/29/2019 12:00:00 AM EST 2.0 {puffs} suspended Spiriva R espimat 1.25 MCG/ACT eCW1 ([facility]) Spiriva Respimat 1.25 MCG/ACT Spiriva Respimat 1.25 MCG/ACT 12/29/2019 12:00:00 AM EST 2.0 {puffs} active Spiriva Resp imat 1.25 MCG/ACT eCW1 ([facility]) Spiriva Respimat 1.25 MCG/ACT Spiriva Respimat 1.25 MCG/ACT 12/29/2019 12:00:00 AM EST 2.0 {puffs} active Spiriva Resp imat 1.25 MCG/ACT eCW1 ([facility]) Spiriva Respimat 1.25 MCG/ACT Spiriva Respimat 1.25 MCG/ACT 12/29/2019 12:00:00 AM EST 2.0 {puffs} active Spiriva Resp imat 1.25 MCG/ACT eCW1 ([facility]) Spiriva Respimat 1.25 MCG/ACT Spiriva Respimat 1.25 MCG/ACT 12/29/2019 12:00:00 AM EST 2.0 {puffs} active Spiriva Resp imat 1.25 MCG/ACT eCW1 ([facility]) Spiriva Respimat 1.25 MCG/ACT Spiriva Respimat 1.25 MCG/ACT 12/29/2019 12:00:00 AM EST 2.0 {puffs} active Spiriva Resp imat 1.25 MCG/ACT eCW1 ([facility]) Spiriva Respimat 1.25 MCG/ACT Spiriva Respimat 1.25 MCG/ACT 12/29/2019 12:00:00 AM EST 2.0 {puffs} active Spiriva Resp imat 1.25 MCG/ACT eCW1 ([facility]) 20 mg 12/29/2019 12:00:00 AM EST tablet 90 TAKE ONE TABLET BY MOUTH THREE TIMES A DAY TAKE ONE TABLET BY MOUTH THREE TIMES A DAY SOLD: 01/26/2020 [facility] Spiriva Respimat 1.25 MCG/ACT Spiriva Respimat 1.25 MCG/ACT 12/29/2019 12:00:00 AM EST 2.0 {puffs} suspended Spiriva R espimat 1.25 MCG/ACT eCW1 ([facility]) Spiriva Respimat 1.25 MCG/ACT Spiriva Respimat 1.25 MCG/ACT 12/29/2019 12:00:00 AM EST 2.0 {puffs} suspended Spiriva R espimat 1.25 MCG/ACT eCW1 ([facility]) Spiriva Respimat 1.25 MCG/ACT Spiriva Respimat 1.25 MCG/ACT 12/29/2019 12:00:00 AM EST 2.0 {puffs} active Spiriva Resp imat 1.25 MCG/ACT eCW1 ([facility]) Spiriva Respimat 1.25 MCG/ACT Spiriva Respimat 1.25 MCG/ACT 12/29/2019 12:00:00 AM EST 2.0 {puffs} suspended Spiriva R espimat 1.25 MCG/ACT eCW1 ([facility]) Spiriva Respimat 1.25 MCG/ACT Spiriva Respimat 1.25 MCG/ACT 12/29/2019 12:00:00 AM EST 2.0 {puffs} active Spiriva Resp imat 1.25 MCG/ACT eCW1 ([facility]) Spiriva Respimat 1.25 MCG/ACT Spiriva Respimat 1.25 MCG/ACT 12/29/2019 12:00:00 AM EST 2.0 {puffs} active Spiriva Resp imat 1.25 MCG/ACT eCW1 ([facility]) 20 mg 12/29/2019 12:00:00 AM EST tablet 90 TAKE ONE TABLET BY MOUTH THREE TIMES A DAY TAKE ONE TABLET BY MOUTH THREE TIMES A DAY SOLD: 12/30/2019 [facility] Spiriva Respimat 1.25 MCG/ACT Spiriva Respimat 1.25 MCG/ACT 12/29/2019 12:00:00 AM EST 2.0 {puffs} active Spiriva Resp imat 1.25 MCG/ACT eCW1 ([facility]) Spiriva Respimat 1.25 MCG/ACT Spiriva Respimat 1.25 MCG/ACT 12/29/2019 12:00:00 AM EST 2.0 {puffs} active Spiriva Resp imat 1.25 MCG/ACT eCW1 ([facility]) Spiriva Respimat 1.25 MCG/ACT Spiriva Respimat 1.25 MCG/ACT 12/29/2019 12:00:00 AM EST 2.0 {puffs} suspended Spiriva R espimat 1.25 MCG/ACT eCW1 ([facility]) Spiriva Respimat 1.25 MCG/ACT Spiriva Respimat 1.25 MCG/ACT 12/29/2019 12:00:00 AM EST 2.0 {puffs} active Spiriva Resp imat 1.25 MCG/ACT eCW1 ([facility]) Spiriva Respimat 1.25 MCG/ACT Spiriva Respimat 1.25 MCG/ACT 12/29/2019 12:00:00 AM EST 2.0 {puffs} active Spiriva Resp imat 1.25 MCG/ACT eCW1 ([facility]) 2 mg 12/25/2019 12:00:00 AM EST tablet 30 TAKE ONE TABLET BY MOUTH THREE TIMES A DAY NEEDED FOR ANXIETY MAXIMUM DAILY DOSE = 3 TABLETS TAKE ONE TABLET BY MOUTH THREE TIMES A DAY NEEDED FOR ANXIETY MAXIMUM DAILY DOSE = 3 TABLETS SOLD: 12/25/2019 [facility] 20 mg 12/23/2019 12:00:00 AM EST tablet 5 TAKE ONE TABLET BY MOUTH EVERY DAY TAKE ONE TABLET BY MOUTH EVERY DAY SOLD: 12/24/2019 [facility] 20-100 mcg/actuation 12/23/2019 12:00:00 AM EST mist 4 INHALE ONE PUFF BY MOUTH FOUR TIMES A DAY INHALE ONE PUFF BY MOUTH FOUR TIMES A DAY SOLD: 12/24/2019 [facility] Omeprazole 40 MG Delayed Release Oral Capsule Omeprazole 40 MG 12/22/2019 12:00:00 AM EST active Omeprazo le 40 MG eCW1 ([facility]) Acetaminophen 325 MG / Oxycodone Hydroch loride 10 MG Oral Tablet [Percocet] Percocet 10-325 MG Percocet 10-325 MG 12/22/2019 12:00:00 AM EST 1.0 {tablet_as_needed} active Percocet 10-3 25 MG eCW1 ([facility]) Acetaminophen 325 MG / Oxycodone Hydroch loride 10 MG Oral Tablet [Percocet] Percocet 10-325 MG Percocet 10-325 MG 12/22/2019 12:00:00 AM EST 1.0 {tablet_as_needed} active Percocet 10-3 25 MG eCW1 ([facility]) Sucralfate 1000 MG Oral Tablet Sucralfate 1 GM Sucralfate 1 GM 12/22/2019 12:00:00 AM EST 1.0 {tablet_on_an_empty_stomach} active Sucralfate 1 GM eCW1 ([facility]) Sucralfate 1000 MG Oral Tablet Sucralfate 1 GM Sucralfate 1 GM 12/22/2019 12:00:00 AM EST 1.0 {tablet_on_an_empty_stomach} active Sucralfate 1 GM eCW1 ([facility]) Omeprazole 40 MG Delayed Release Oral Capsule Omeprazole 40 MG 12/22/2019 12:00:00 AM EST active Omeprazo le 40 MG eCW1 ([facility]) Omeprazole 40 MG Delayed Release Oral Capsule Omeprazole 40 MG 12/22/2019 12:00:00 AM EST active Omeprazo le 40 MG eCW1 ([facility]) Sucralfate 1000 MG Oral Tablet Sucralfate 1 GM Sucralfate 1 GM 12/22/2019 12:00:00 AM EST 1.0 {tablet_on_an_empty_stomach} active Sucralfate 1 GM eCW1 ([facility]) Sucralfate 1000 MG Oral Tablet Sucralfate 1 GM Sucralfate 1 GM 12/22/2019 12:00:00 AM EST 1.0 {tablet_on_an_empty_stomach} active Sucralfate 1 GM eCW1 ([facility]) Omeprazole 40 MG Delayed Release Oral Capsule Omeprazole 40 MG 12/22/2019 12:00:00 AM EST active Omeprazo le 40 MG eCW1 ([facility]) Acetaminophen 325 MG / Oxycodone Hydroch loride 10 MG Oral Tablet [Percocet] Percocet 10-325 MG Percocet 10-325 MG 12/22/2019 12:00:00 AM EST 1.0 {tablet_as_needed} active Percocet 10-3 25 MG eCW1 ([facility]) Omeprazole 40 MG Delayed Release Oral Capsule Omeprazole 40 MG 12/22/2019 12:00:00 AM EST active Omeprazo le 40 MG eCW1 ([facility]) Sucralfate 1000 MG Oral Tablet Sucralfate 1 GM Sucralfate 1 GM 12/22/2019 12:00:00 AM EST 1.0 {tablet_on_an_empty_stomach} active Sucralfate 1 GM eCW1 ([facility]) Acetaminophen 325 MG / Oxycodone Hydroch loride 10 MG Oral Tablet [Percocet] Percocet 10-325 MG Percocet 10-325 MG 12/22/2019 12:00:00 AM EST 1.0 {tablet_as_needed} active Percocet 10-3 25 MG eCW1 ([facility]) Sucralfate 1000 MG Oral Tablet Sucralfate 1 GM Sucralfate 1 GM 12/22/2019 12:00:00 AM EST 1.0 {tablet_on_an_empty_stomach} active Sucralfate 1 GM eCW1 ([facility]) 1 gram 12/22/2019 12:00:00 AM EST tablet 90 TAKE 1 TABLET BY MOUTH ON AN EMPTY STOMACH BEFORE EACH MEAL TAKE 1 TABLET BY MOUTH ON AN EMPTY STOMA CH BEFORE EACH MEAL SOLD: 12/22/2019 [facility] Sucralfate 1000 MG Oral Tablet Sucralfate 1 GM Sucralfate 1 GM 12/22/2019 12:00:00 AM EST 1.0 {tablet_on_an_empty_stomach} active Sucralfate 1 GM eCW1 ([facility]) Sucralfate 1000 MG Oral Tablet Sucralfate 1 GM Sucralfate 1 GM 12/22/2019 12:00:00 AM EST 1.0 {tablet_on_an_empty_stomach} active Sucralfate 1 GM eCW1 ([facility]) Omeprazole 40 MG Delayed Release Oral Capsule Omeprazole 40 MG 12/22/2019 12:00:00 AM EST active Omeprazo le 40 MG eCW1 ([facility]) Sucralfate 1000 MG Oral Tablet Sucralfate 1 GM Sucralfate 1 GM 12/22/2019 12:00:00 AM EST 1.0 {tablet_on_an_empty_stomach} active Sucralfate 1 GM eCW1 ([facility]) Sucralfate 1000 MG Oral Tablet Sucralfate 1 GM Sucralfate 1 GM 12/22/2019 12:00:00 AM EST 1.0 {tablet_on_an_empty_stomach} active Sucralfate 1 GM eCW1 ([facility]) Acetaminophen 325 MG / Oxycodone Hydroch loride 10 MG Oral Tablet [Percocet] Percocet 10-325 MG Percocet 10-325 MG 12/22/2019 12:00:00 AM EST 1.0 {tablet_as_needed} active Percocet 10-3 25 MG eC1 ([facility]) Omeprazole 40 MG Delayed Release Oral Capsule Omeprazole 40 MG 12/22/2019 12:00:00 AM EST active Omeprazo le 40 MG eCW1 ([facility]) Omeprazole 40 MG Delayed Release Oral Capsule Omeprazole 40 MG 12/22/2019 12:00:00 AM EST active Omeprazo le 40 MG eCW1 ([facility]) Acetaminophen 325 MG / Oxycodone Hydroch loride 10 MG Oral Tablet [Percocet] Percocet 10-325 MG Percocet 10-325 MG 12/22/2019 12:00:00 AM EST 1.0 {tablet_as_needed} active Percocet 10-3 25 MG eCW1 ([facility]) Sucralfate 1000 MG Oral Tablet Sucralfate 1 GM Sucralfate 1 GM 12/22/2019 12:00:00 AM EST 1.0 {tablet_on_an_empty_stomach} active Sucralfate 1 GM eCW1 ([facility]) Sucralfate 1000 MG Oral Tablet Sucralfate 1 GM Sucralfate 1 GM 12/22/2019 12:00:00 AM EST 1.0 {tablet_on_an_empty_stomach} active Sucralfate 1 GM eCW1 ([facility]) Omeprazole 40 MG Delayed Release Oral Capsule Omeprazole 40 MG 12/22/2019 12:00:00 AM EST active Omeprazo le 40 MG eCW1 ([facility]) Omeprazole 40 MG Delayed Release Oral Capsule Omeprazole 40 MG 12/22/2019 12:00:00 AM EST active Omeprazo le 40 MG eCW1 ([facility]) Omeprazole 40 MG Delayed Release Oral Capsule Omeprazole 40 MG 12/22/2019 12:00:00 AM EST active Omeprazo le 40 MG eCW1 ([facility]) Sucralfate 1000 MG Oral Tablet Sucralfate 1 GM Sucralfate 1 GM 12/22/2019 12:00:00 AM EST 1.0 {tablet_on_an_empty_stomach} active Sucralfate 1 GM eCW1 ([facility]) Sucralfate 1000 MG Oral Tablet Sucralfate 1 GM Sucralfate 1 GM 12/22/2019 12:00:00 AM EST 1.0 {tablet_on_an_empty_stomach} active Sucralfate 1 GM eCW1 ([facility]) Omeprazole 40 MG Delayed Release Oral Capsule Omeprazole 40 MG 12/22/2019 12:00:00 AM EST active Omeprazo le 40 MG eCW1 ([facility]) Acetaminophen 325 MG / Oxycodone Hydroch loride 10 MG Oral Tablet [Percocet] Percocet 10-325 MG Percocet 10-325 MG 12/22/2019 12:00:00 AM EST 1.0 {tablet_as_needed} active Percocet 10-3 25 MG eCW1 ([facility]) Sucralfate 1000 MG Oral Tablet Sucralfate 1 GM Sucralfate 1 GM 12/22/2019 12:00:00 AM EST 1.0 {tablet_on_an_empty_stomach} active Sucralfate 1 GM eCW1 ([facility]) Omeprazole 40 MG Delayed Release Oral Capsule Omeprazole 40 MG 12/22/2019 12:00:00 AM EST active Omeprazo le 40 MG eCW1 ([facility]) Omeprazole 40 MG Delayed Release Oral Capsule Omeprazole 40 MG 12/22/2019 12:00:00 AM EST active Omeprazo le 40 MG eCW1 ([facility]) Acetaminophen 325 MG / Oxycodone Hydroch loride 10 MG Oral Tablet [Percocet] Percocet 10-325 MG Percocet 10-325 MG 12/22/2019 12:00:00 AM EST 1.0 {tablet_as_needed} active Percocet 10-3 25 MG eCW1 ([facility]) Sucralfate 1000 MG Oral Tablet Sucralfate 1 GM Sucralfate 1 GM 12/22/2019 12:00:00 AM EST 1.0 {tablet_on_an_empty_stomach} active Sucralfate 1 GM eCW1 ([facility]) Sucralfate 1000 MG Oral Tablet Sucralfate 1 GM Sucralfate 1 GM 12/22/2019 12:00:00 AM EST 1.0 {tablet_on_an_empty_stomach} active Sucralfate 1 GM eCW1 ([facility]) Sucralfate 1000 MG Oral Tablet Sucralfate 1 GM Sucralfate 1 GM 12/22/2019 12:00:00 AM EST 1.0 {tablet_on_an_empty_stomach} active Sucralfate 1 GM eCW1 ([facility]) Omeprazole 40 MG Delayed Release Oral Capsule Omeprazole 40 MG 12/22/2019 12:00:00 AM EST active Omeprazo le 40 MG eCW1 ([facility]) Omeprazole 40 MG Delayed Release Oral Capsule Omeprazole 40 MG 12/22/2019 12:00:00 AM EST active Omeprazo le 40 MG eCW1 ([facility]) Omeprazole 40 MG Delayed Release Oral Capsule Omeprazole 40 MG 12/22/2019 12:00:00 AM EST active Omeprazo le 40 MG eCW1 ([facility]) Sucralfate 1000 MG Oral Tablet Sucralfate 1 GM Sucralfate 1 GM 12/22/2019 12:00:00 AM EST 1.0 {tablet_on_an_empty_stomach} active Sucralfate 1 GM eCW1 ([facility]) Omeprazole 40 MG Delayed Release Oral Capsule Omeprazole 40 MG 12/22/2019 12:00:00 AM EST active Omeprazo le 40 MG eCW1 ([facility]) Sucralfate 1000 MG Oral Tablet Sucralfate 1 GM Sucralfate 1 GM 12/22/2019 12:00:00 AM EST 1.0 {tablet_on_an_empty_stomach} active Sucralfate 1 GM eCW1 ([facility]) Omeprazole 40 MG Delayed Release Oral Capsule Omeprazole 40 MG 12/22/2019 12:00:00 AM EST active Omeprazo le 40 MG eCW1 ([facility]) Omeprazole 40 MG Delayed Release Oral Capsule Omeprazole 40 MG 12/22/2019 12:00:00 AM EST active Omeprazo le 40 MG eCW1 ([facility]) Acetaminophen 325 MG / Oxycodone Hydroch loride 10 MG Oral Tablet [Percocet] Percocet 10-325 MG Percocet 10-325 MG 12/22/2019 12:00:00 AM EST 1.0 {tablet_as_needed} active Percocet 10-3 25 MG eCW1 ([facility]) Sucralfate 1000 MG Oral Tablet Sucralfate 1 GM Sucralfate 1 GM 12/22/2019 12:00:00 AM EST 1.0 {tablet_on_an_empty_stomach} active Sucralfate 1 GM eCW1 ([facility]) Omeprazole 40 MG Delayed Release Oral Capsule Omeprazole 40 MG 12/22/2019 12:00:00 AM EST active Omeprazo le 40 MG eCW1 ([facility]) Sucralfate 1000 MG Oral Tablet Sucralfate 1 GM Sucralfate 1 GM 12/22/2019 12:00:00 AM EST 1.0 {tablet_on_an_empty_stomach} active Sucralfate 1 GM eCW1 ([facility]) Omeprazole 40 MG Delayed Release Oral Capsule Omeprazole 40 MG 12/22/2019 12:00:00 AM EST active Omeprazo le 40 MG [facility] ([facility]) Omeprazole 40 MG Delayed Release Oral Capsule Omeprazole 40 MG 12/22/2019 12:00:00 AM EST active Omeprazo le 40 MG W1 ([facility]) Acetaminophen 325 MG / Oxycodone Hydroch loride 10 MG Oral Tablet [Percocet] Percocet 10-325 MG Percocet 10-325 MG 12/22/2019 12:00:00 AM EST 1.0 {tablet_as_needed} active Percocet 10-3 25 MG [facility] ([facility]) Sucralfate 1000 MG Oral Tablet Sucralfate 1 GM Sucralfate 1 GM 12/22/2019 12:00:00 AM EST 1.0 {tablet_on_an_empty_stomach} active Sucralfate 1 GM eCW1 ([facility]) Sucralfate 1000 MG Oral Tablet Sucralfate 1 GM Sucralfate 1 GM 12/22/2019 12:00:00 AM EST 1.0 {tablet_on_an_empty_stomach} active Sucralfate 1 GM eCW1 ([facility]) Sucralfate 1000 MG Oral Tablet Sucralfate 1 GM Sucralfate 1 GM 12/22/2019 12:00:00 AM EST 1.0 {tablet_on_an_empty_stomach} active Sucralfate 1 GM eCW1 ([facility]) Sucralfate 1000 MG Oral Tablet Sucralfate 1 GM Sucralfate 1 GM 12/22/2019 12:00:00 AM EST 1.0 {tablet_on_an_empty_stomach} active Sucralfate 1 GM eCW1 ([facility]) Acetaminophen 325 MG / Oxycodone Hydroch loride 10 MG Oral Tablet [Percocet] Percocet 10-325 MG Percocet 10-325 MG 12/22/2019 12:00:00 AM EST 1.0 {tablet_as_needed} active Percocet 10-3 25 MG W1 ([facility]) Omeprazole 40 MG Delayed Release Oral Capsule Omeprazole 40 MG 12/22/2019 12:00:00 AM EST active Omeprazo le 40 MG eCW1 ([facility]) Omeprazole 40 MG Delayed Release Oral Capsule Omeprazole 40 MG 12/22/2019 12:00:00 AM EST active Omeprazo le 40 MG [facility] ([facility]) Sucralfate 1000 MG Oral Tablet Sucralfate 1 GM Sucralfate 1 GM 12/22/2019 12:00:00 AM EST 1.0 {tablet_on_an_empty_stomach} active Sucralfate 1 GM W1 ([facility]) Sucralfate 1000 MG Oral Tablet Sucralfate 1 GM Sucralfate 1 GM 12/22/2019 12:00:00 AM EST 1.0 {tablet_on_an_empty_stomach} active Sucralfate 1 GM eCW1 ([facility]) Sucralfate 1000 MG Oral Tablet Sucralfate 1 GM Sucralfate 1 GM 12/22/2019 12:00:00 AM EST 1.0 {tablet_on_an_empty_stomach} active Sucralfate 1 GM eCW1 ([facility]) Sucralfate 1000 MG Oral Tablet Sucralfate 1 GM Sucralfate 1 GM 12/22/2019 12:00:00 AM EST 1.0 {tablet_on_an_empty_stomach} active Sucralfate 1 GM eCW1 ([facility]) Omeprazole 40 MG Delayed Release Oral Capsule Omeprazole 40 MG 12/22/2019 12:00:00 AM EST active Omeprazo le 40 MG eCW1 ([facility]) Sucralfate 1000 MG Oral Tablet Sucralfate 1 GM Sucralfate 1 GM 12/22/2019 12:00:00 AM EST 1.0 {tablet_on_an_empty_stomach} active Sucralfate 1 GM eCW1 ([facility]) Acetaminophen 325 MG / Oxycodone Hydroch loride 10 MG Oral Tablet [Percocet] Percocet 10-325 MG Percocet 10-325 MG 12/22/2019 12:00:00 AM EST 1.0 {tablet_as_needed} active Percocet 10-3 25 MG eCW1 ([facility]) Acetaminophen 325 MG / Oxycodone Hydroch loride 10 MG Oral Tablet [Percocet] Percocet 10-325 MG Percocet 10-325 MG 12/22/2019 12:00:00 AM EST 1.0 {tablet_as_needed} active Percocet 10-3 25 MG eCW1 ([facility]) Acetaminophen 325 MG / Oxycodone Hydroch loride 10 MG Oral Tablet [Percocet] Percocet 10-325 MG Percocet 10-325 MG 12/22/2019 12:00:00 AM EST 1.0 {tablet_as_needed} active Percocet 10-3 25 MG eCW1 ([facility]) Acetaminophen 325 MG / Oxycodone Hydroch loride 10 MG Oral Tablet [Percocet] Percocet 10-325 MG Percocet 10-325 MG 12/22/2019 12:00:00 AM EST 1.0 {tablet_as_needed} active Percocet 10-3 25 MG eCW1 ([facility]) Omeprazole 40 MG Delayed Release Oral Capsule Omeprazole 40 MG 12/22/2019 12:00:00 AM EST active Omeprazo le 40 MG eCW1 ([facility]) Sucralfate 1000 MG Oral Tablet Sucralfate 1 GM Sucralfate 1 GM 12/22/2019 12:00:00 AM EST 1.0 {tablet_on_an_empty_stomach} active Sucralfate 1 GM eCW1 ([facility]) Omeprazole 40 MG Delayed Release Oral Capsule Omeprazole 40 MG 12/22/2019 12:00:00 AM EST active Omeprazo le 40 MG eCW1 ([facility]) Sucralfate 1000 MG Oral Tablet Sucralfate 1 GM Sucralfate 1 GM 12/22/2019 12:00:00 AM EST 1.0 {tablet_on_an_empty_stomach} active Sucralfate 1 GM eCW1 ([facility]) Sucralfate 1000 MG Oral Tablet Sucralfate 1 GM Sucralfate 1 GM 12/22/2019 12:00:00 AM EST 1.0 {tablet_on_an_empty_stomach} active Sucralfate 1 GM eCW1 ([facility]) Acetaminophen 325 MG / Oxycodone Hydroch loride 10 MG Oral Tablet [Percocet] Percocet 10-325 MG Percocet 10-325 MG 12/22/2019 12:00:00 AM EST 1.0 {tablet_as_needed} active Percocet 10-3 25 MG eCW1 ([facility]) Acetaminophen 325 MG / Oxycodone Hydroch loride 10 MG Oral Tablet [Percocet] Percocet 10-325 MG Percocet 10-325 MG 12/22/2019 12:00:00 AM EST 1.0 {tablet_as_needed} active Percocet 10-3 25 MG eCW1 ([facility]) Sucralfate 1000 MG Oral Tablet Sucralfate 1 GM Sucralfate 1 GM 12/22/2019 12:00:00 AM EST 1.0 {tablet_on_an_empty_stomach} active Sucralfate 1 GM eCW1 ([facility]) Sucralfate 1000 MG Oral Tablet Sucralfate 1 GM Sucralfate 1 GM 12/22/2019 12:00:00 AM EST 1.0 {tablet_on_an_empty_stomach} active Sucralfate 1 GM eCW1 (Formerly [facility]) Omeprazole 40 MG Delayed Release Oral Capsule Omeprazole 40 MG 12/22/2019 12:00:00 AM EST active Omeprazo le 40 MG eCW1 (Formerly [facility]) Omeprazole 40 MG Delayed Release Oral Capsule Omeprazole 40 MG 12/22/2019 12:00:00 AM EST active Omeprazo le 40 MG eCW1 (Formerly [facility]) Acetaminophen 325 MG / Oxycodone Hydroch loride 10 MG Oral Tablet [Percocet] Percocet 10-325 MG Percocet 10-325 MG 12/22/2019 12:00:00 AM EST 1.0 {tablet_as_needed} active Percocet 10-3 25 MG eCW1 (Formerly [facility]) Acetaminophen 325 MG / Oxycodone Hydroch loride 10 MG Oral Tablet [Percocet] Percocet 10-325 MG Percocet 10-325 MG 12/22/2019 12:00:00 AM EST 1.0 {tablet_as_needed} active Percocet 10-3 25 MG eCW1 (Formerly [facility]) Omeprazole 40 MG Delayed Release Oral Capsule Omeprazole 40 MG 12/22/2019 12:00:00 AM EST active Omeprazo le 40 MG eCW1 (Formerly [facility]) 40 mg 12/22/2019 12:00:00 AM EST capsule,delayed release (DR/EC) 30 TAKE 1 CAPSULE BY MOUTH 30 MINS. BEFORE MORNING MEAL TAKE 1 CAPSULE BY MOUTH 30 MINS. BEFORE MORNING MEAL SOLD: 12/22/2019 Devonte Hoffmann Omeprazole 40 MG Delayed Release Oral Capsule Omeprazole 40 MG 12/22/2019 12:00:00 AM EST active Omeprazo le 40 MG eCW1 (Formerly [facility]) Sucralfate 1000 MG Oral Tablet Sucralfate 1 GM Sucralfate 1 GM 12/22/2019 12:00:00 AM EST 1.0 {tablet_on_an_empty_stomach} active Sucralfate 1 GM eCW1 (Formerly [facility]) Omeprazole 40 MG Delayed Release Oral Capsule Omeprazole 40 MG 12/22/2019 12:00:00 AM EST active Omeprazo le 40 MG eCW1 (Formerly [facility]) Acetaminophen 325 MG / Oxycodone Hydroch loride 10 MG Oral Tablet [Percocet] Percocet 10-325 MG Percocet 10-325 MG 12/22/2019 12:00:00 AM EST 1.0 {tablet_as_needed} active Percocet 10-3 25 MG eCW1 (Formerly [facility]) Sucralfate 1000 MG Oral Tablet Sucralfate 1 GM Sucralfate 1 GM 12/22/2019 12:00:00 AM EST 1.0 {tablet_on_an_empty_stomach} active Sucralfate 1 GM eCW1 (Formerly [facility]) Sucralfate 1000 MG Oral Tablet Sucralfate 1 GM Sucralfate 1 GM 12/22/2019 12:00:00 AM EST 1.0 {tablet_on_an_empty_stomach} active Sucralfate 1 GM eCW1 (Formerly [facility]) Omeprazole 40 MG Delayed Release Oral Capsule Omeprazole 40 MG 12/22/2019 12:00:00 AM EST active Omeprazo le 40 MG eCW1 (Formerly [facility]) Omeprazole 40 MG Delayed Release Oral Capsule Omeprazole 40 MG 12/22/2019 12:00:00 AM EST active Omeprazo le 40 MG eCW1 (Formerly [facility]) Omeprazole 40 MG Delayed Release Oral Capsule Omeprazole 40 MG 12/22/2019 12:00:00 AM EST active Omeprazo le 40 MG eCW1 (Formerly [facility]) Acetaminophen 325 MG / Oxycodone Hydroch loride 10 MG Oral Tablet [Percocet] Percocet 10-325 MG Percocet 10-325 MG 12/22/2019 12:00:00 AM EST 1.0 {tablet_as_needed} active Percocet 10-3 25 MG eCW1 (Formerly [facility]) Acetaminophen 325 MG / Oxycodone Hydroch loride 10 MG Oral Tablet [Percocet] Percocet 10-325 MG Percocet 10-325 MG 12/22/2019 12:00:00 AM EST 1.0 {tablet_as_needed} active Percocet 10-3 25 MG eCW1 (Formerly [facility]) Acetaminophen 325 MG / Oxycodone Hydroch loride 10 MG Oral Tablet [Percocet] Percocet 10-325 MG Percocet 10-325 MG 12/22/2019 12:00:00 AM EST 1.0 {tablet_as_needed} active Percocet 10-3 25 MG eCW1 (Formerly [facility]) Omeprazole 40 MG Delayed Release Oral Capsule Omeprazole 40 MG 12/22/2019 12:00:00 AM EST active Omeprazo le 40 MG eCW1 (Formerly [facility]) Acetaminophen 325 MG / Oxycodone Hydroch loride 10 MG Oral Tablet [Percocet] Percocet 10-325 MG Percocet 10-325 MG 12/22/2019 12:00:00 AM EST 1.0 {tablet_as_needed} active Percocet 10-3 25 MG eCW1 (Formerly [facility]) Sucralfate 1000 MG Oral Tablet Sucralfate 1 GM Sucralfate 1 GM 12/22/2019 12:00:00 AM EST 1.0 {tablet_on_an_empty_stomach} active Sucralfate 1 GM eCW1 (Formerly [facility]) Sucralfate 1000 MG Oral Tablet Sucralfate 1 GM Sucralfate 1 GM 12/22/2019 12:00:00 AM EST 1.0 {tablet_on_an_empty_stomach} active Sucralfate 1 GM eCW1 (Formerly [facility]) Omeprazole 40 MG Delayed Release Oral Capsule Omeprazole 40 MG 12/22/2019 12:00:00 AM EST active Omeprazo le 40 MG eCW1 (Formerly [facility]) Omeprazole 40 MG Delayed Release Oral Capsule Omeprazole 40 MG 12/22/2019 12:00:00 AM EST active Omeprazo le 40 MG eCW1 (Formerly [facility]) Omeprazole 40 MG Delayed Release Oral Capsule Omeprazole 40 MG 12/22/2019 12:00:00 AM EST active Omeprazo le 40 MG eCW1 (Formerly [facility]) Omeprazole 40 MG Delayed Release Oral Capsule Omeprazole 40 MG 12/22/2019 12:00:00 AM EST active Omeprazo le 40 MG eCW1 (Formerly [facility]) Acetaminophen 325 MG / Oxycodone Hydroch loride 10 MG Oral Tablet [Percocet] Percocet 10-325 MG Percocet 10-325 MG 12/22/2019 12:00:00 AM EST 1.0 {tablet_as_needed} active Percocet 10-3 25 MG eCW1 (Formerly [facility]) Acetaminophen 325 MG / Oxycodone Hydroch loride 10 MG Oral Tablet [Percocet] Percocet 10-325 MG Percocet 10-325 MG 12/22/2019 12:00:00 AM EST 1.0 {tablet_as_needed} active Percocet 10-3 25 MG eCW1 (Formerly [facility]) Sucralfate 1000 MG Oral Tablet Sucralfate 1 GM Sucralfate 1 GM 12/22/2019 12:00:00 AM EST 1.0 {tablet_on_an_empty_stomach} active Sucralfate 1 GM eCW1 (Formerly [facility]) Sucralfate 1000 MG Oral Tablet Sucralfate 1 GM Sucralfate 1 GM 12/22/2019 12:00:00 AM EST 1.0 {tablet_on_an_empty_stomach} active Sucralfate 1 GM eCW1 (Formerly [facility]) Omeprazole 40 MG Delayed Release Oral Capsule Omeprazole 40 MG 12/22/2019 12:00:00 AM EST active Omeprazo le 40 MG eCW1 (Formerly [facility]) Acetaminophen 325 MG / Oxycodone Hydroch loride 10 MG Oral Tablet [Percocet] Percocet 10-325 MG Percocet 10-325 MG 12/22/2019 12:00:00 AM EST 1.0 {tablet_as_needed} active Percocet 10-3 25 MG eCW1 (Formerly [facility]) Acetaminophen 325 MG / Oxycodone Hydroch loride 10 MG Oral Tablet [Percocet] Percocet 10-325 MG Percocet 10-325 MG 12/22/2019 12:00:00 AM EST 1.0 {tablet_as_needed} active Percocet 10-3 25 MG eCW1 (Formerly [facility]) Sucralfate 1000 MG Oral Tablet Sucralfate 1 GM Sucralfate 1 GM 12/22/2019 12:00:00 AM EST 1.0 {tablet_on_an_empty_stomach} active Sucralfate 1 GM eCW1 (Formerly [facility]) Omeprazole 40 MG Delayed Release Oral Capsule Omeprazole 40 MG 12/22/2019 12:00:00 AM EST active Omeprazo le 40 MG eCW1 (Formerly [facility]) Sucralfate 1000 MG Oral Tablet Sucralfate 1 GM Sucralfate 1 GM 12/22/2019 12:00:00 AM EST 1.0 {tablet_on_an_empty_stomach} active Sucralfate 1 GM eCW1 (Formerly [facility]) Sucralfate 1000 MG Oral Tablet Sucralfate 1 GM Sucralfate 1 GM 12/22/2019 12:00:00 AM EST 1.0 {tablet_on_an_empty_stomach} active Sucralfate 1 GM eCW1 (Formerly [facility]) Omeprazole 40 MG Delayed Release Oral Capsule Omeprazole 40 MG 12/22/2019 12:00:00 AM EST active Omeprazo le 40 MG eCW1 (Formerly [facility]) Omeprazole 40 MG Delayed Release Oral Capsule Omeprazole 40 MG 12/22/2019 12:00:00 AM EST active Omeprazo le 40 MG eCW1 (Formerly [facility]) Sucralfate 1000 MG Oral Tablet Sucralfate 1 GM Sucralfate 1 GM 12/22/2019 12:00:00 AM EST 1.0 {tablet_on_an_empty_stomach} active Sucralfate 1 GM eCW1 (Formerly [facility]) Sucralfate 1000 MG Oral Tablet Sucralfate 1 GM Sucralfate 1 GM 12/22/2019 12:00:00 AM EST 1.0 {tablet_on_an_empty_stomach} active Sucralfate 1 GM eCW1 (Formerly [facility]) Omeprazole 40 MG Delayed Release Oral Capsule Omeprazole 40 MG 12/22/2019 12:00:00 AM EST active Omeprazo le 40 MG eCW1 (Formerly [facility]) Acetaminophen 325 MG / Oxycodone Hydroch loride 10 MG Oral Tablet [Percocet] Percocet 10-325 MG Percocet 10-325 MG 12/22/2019 12:00:00 AM EST 1.0 {tablet_as_needed} active Percocet 10-3 25 MG eCW1 (Formerly [facility]) Omeprazole 40 MG Delayed Release Oral Capsule Omeprazole 40 MG 12/22/2019 12:00:00 AM EST active Omeprazo le 40 MG eCW1 (Formerly [facility]) Omeprazole 40 MG Delayed Release Oral Capsule Omeprazole 40 MG 12/22/2019 12:00:00 AM EST active Omeprazo le 40 MG eCW1 (Formerly [facility]) Acetaminophen 325 MG / Oxycodone Hydroch loride 10 MG Oral Tablet [Percocet] Percocet 10-325 MG Percocet 10-325 MG 12/22/2019 12:00:00 AM EST 1.0 {tablet_as_needed} active Percocet 10-3 25 MG eCW1 (Former[facility]) Omeprazole 40 MG Delayed Release Oral Capsule Omeprazole 40 MG 12/22/2019 12:00:00 AM EST active Omeprazo le 40 MG eCW1 (Former[facility]) Omeprazole 40 MG Delayed Release Oral Capsule Omeprazole 40 MG 12/22/2019 12:00:00 AM EST active Omeprazo le 40 MG eCW1 (Formerly [facility]) Acetaminophen 325 MG / Oxycodone Hydroch loride 10 MG Oral Tablet [Percocet] Percocet 10-325 MG Percocet 10-325 MG 12/22/2019 12:00:00 AM EST 1.0 {tablet_as_needed} active Percocet 10-3 25 MG eCW1 (Formerly [facility]) Acetaminophen 325 MG / Oxycodone Hydroch loride 10 MG Oral Tablet [Percocet] Percocet 10-325 MG Percocet 10-325 MG 12/22/2019 12:00:00 AM EST 1.0 {tablet_as_needed} active Percocet 10-3 25 MG eCW1 (Formerly [facility]) Sucralfate 1000 MG Oral Tablet Sucralfate 1 GM Sucralfate 1 GM 12/22/2019 12:00:00 AM EST 1.0 {tablet_on_an_empty_stomach} active Sucralfate 1 GM eCW1 (Formerly [facility]) Omeprazole 40 MG Delayed Release Oral Capsule Omeprazole 40 MG 12/22/2019 12:00:00 AM EST active Omeprazo le 40 MG eCW1 (Formerly [facility]) 10-325 mg 12/22/2019 12:00:00 AM EST tablet 90 TAKE ONE TABLET BY MOUTH EVERY 6 HOURS MAXIMUM DAILY DOSE = 4 TABLETS TAKE ONE TABLET BY MOUTH EVERY 6 HOURS MAXIMUM DAILY DOSE = 4 TABLETS SOLD: 12/22/2019 [facility] Omeprazole 40 MG Delayed Release Oral Capsule Omeprazole 40 MG 12/22/2019 12:00:00 AM EST active Omeprazo le 40 MG eCW1 (Formerly [facility]) Acetaminophen 325 MG / Oxycodone Hydroch loride 10 MG Oral Tablet [Percocet] Percocet 10-325 MG Percocet 10-325 MG 12/22/2019 12:00:00 AM EST 1.0 {tablet_as_needed} active Percocet 10-3 25 MG eCW1 (Formerly [facility]) Omeprazole 40 MG Delayed Release Oral Capsule Omeprazole 40 MG 12/22/2019 12:00:00 AM EST active Omeprazo le 40 MG eCW1 (Former[facility]) Acetaminophen 325 MG / Oxycodone Hydroch loride 10 MG Oral Tablet [Percocet] Percocet 10-325 MG Percocet 10-325 MG 12/22/2019 12:00:00 AM EST 1.0 {tablet_as_needed} active Percocet 10-3 25 MG eCW1 (Formerly [facility]) Sucralfate 1000 MG Oral Tablet Sucralfate 1 GM Sucralfate 1 GM 12/22/2019 12:00:00 AM EST 1.0 {tablet_on_an_empty_stomach} active Sucralfate 1 GM eCW1 (Formerly [facility]) Acetaminophen 325 MG / Oxycodone Hydroch loride 10 MG Oral Tablet [Percocet] Percocet 10-325 MG Percocet 10-325 MG 12/22/2019 12:00:00 AM EST 1.0 {tablet_as_needed} active Percocet 10-3 25 MG eCW1 (Former[facility]) Sucralfate 1000 MG Oral Tablet Sucralfate 1 GM Sucralfate 1 GM 12/22/2019 12:00:00 AM EST 1.0 {tablet_on_an_empty_stomach} active Sucralfate 1 GM eCW1 (Former[facility]) Sucralfate 1000 MG Oral Tablet Sucralfate 1 GM Sucralfate 1 GM 12/22/2019 12:00:00 AM EST 1.0 {tablet_on_an_empty_stomach} active Sucralfate 1 GM eCW1 (Former[facility]) Sucralfate 1000 MG Oral Tablet Sucralfate 1 GM Sucralfate 1 GM 12/22/2019 12:00:00 AM EST 1.0 {tablet_on_an_empty_stomach} active Sucralfate 1 GM eCW1 (Former[facility]) Amlodipine 5 MG / valsartan 160 MG [...] = 3 TABLETS SOLD: 12/13/2019 [facility] 15 mg 12/11/2019 12:00:00 AM [...] DOSE = 2 SOLD: 12/11/2019 [facility] 20 mg 12/06/2019 12:00:00 AM EDT tablet 60 TAKE ONE TABLET BY MOUTH TWICE A DAY TAKE ONE TABLET BY MOUTH TWICE A DAY SOLD: 12/06/2019 [facility] 250 mg 12/01/2019 12:00:00 AM EDT [...] active Percocet 10-3 25 MG eCW1 (Formerly [facility]) Acetaminophen 325 MG / Oxycodone Hydroch loride 10 MG Oral Tablet [Percocet] Percocet 10-325 MG Percocet 10-325 MG 11/24/2019 12:00:00 AM EDT 1.0 {tablet_as_needed} active Percocet 10-3 25 MG eCW1 (Formerly [facility]) Acetaminophen 325 MG / Oxycodone Hydroch loride 10 MG Oral Tablet [Percocet] Percocet 10-325 MG Percocet 10-325 MG 11/24/2019 12:00:00 AM EDT 1.0 {tablet_as_needed} active Percocet 10-3 25 MG eCW1 (Former[facility]) Acetaminophen 325 MG / Oxycodone Hydroch loride 10 MG Oral Tablet [Percocet] Percocet 10-325 MG Percocet 10-325 MG 11/24/2019 12:00:00 AM EDT 1.0 {tablet_as_needed} active Percocet 10-3 25 MG eCW1 (Former[facility]) Acetaminophen 325 MG / Oxycodone Hydroch loride 10 MG Oral Tablet [Percocet] Percocet 10-325 MG Percocet 10-325 MG 11/24/2019 12:00:00 AM EDT 1.0 {tablet_as_needed} active Percocet 10-3 25 MG eCW1 (Former[facility]) Acetaminophen 325 MG / Oxycodone Hydroch loride 10 MG Oral Tablet [Percocet] Percocet 10-325 MG Percocet 10-325 MG 11/24/2019 12:00:00 AM EDT 1.0 {tablet_as_needed} active Percocet 10-3 25 MG eCW1 (Former[facility]) Acetaminophen 325 MG / Oxycodone Hydroch loride 10 MG Oral Tablet [Percocet] Percocet 10-325 MG Percocet 10-325 MG 11/24/2019 12:00:00 AM EDT 1.0 {tablet_as_needed} active Percocet 10-3 25 MG eCW1 (Former[facility]) Acetaminophen 325 MG / Oxycodone Hydroch loride 10 MG Oral Tablet [Percocet] Percocet 10-325 MG Percocet 10-325 MG 11/24/2019 12:00:00 AM EDT 1.0 {tablet_as_needed} active Percocet 10-3 25 MG eCW1 (Former[facility]) Acetaminophen 325 MG / Oxycodone Hydroch loride 10 MG Oral Tablet [Percocet] Percocet 10-325 MG Percocet 10-325 MG 11/24/2019 12:00:00 AM EDT 1.0 {tablet_as_needed} active Percocet 10-3 25 MG eCW1 (Formerly [facility]) 10-325 mg 11/24/2019 12:00:00 AM EDT tablet [...] active Percocet 10-3 25 MG eCW1 (Former[facility]) Acetaminophen 325 MG / Oxycodone Hydroch loride 10 MG Oral Tablet [Percocet] Percocet 10-325 MG Percocet 10-325 MG 11/24/2019 12:00:00 AM EDT 1.0 {tablet_as_needed} active Percocet 10-3 25 MG eCW1 (Former[facility]) Acetaminophen 325 MG / Oxycodone Hydroch loride 10 MG Oral Tablet [Percocet] Percocet 10-325 MG Percocet 10-325 MG 11/24/2019 12:00:00 AM EDT 1.0 {tablet_as_needed} active Percocet 10-3 25 MG eCW1 (Former[facility]) Acetaminophen 325 MG / Oxycodone Hydroch loride 10 MG Oral Tablet [Percocet] Percocet 10-325 MG Percocet 10-325 MG 11/24/2019 12:00:00 AM EDT 1.0 {tablet_as_needed} active Percocet 10-3 25 MG eCW1 ([facility]) Acetaminophen 325 MG / Oxycodone Hydroch loride 10 MG Oral Tablet [Percocet] Percocet 10-325 MG Percocet 10-325 MG 11/24/2019 12:00:00 AM EDT 1.0 {tablet_as_needed} active Percocet 10-3 25 MG eCW1 (Former[facility]) Acetaminophen 325 MG / Oxycodone Hydroch loride 10 MG Oral Tablet [Percocet] Percocet 10-325 MG Percocet 10-325 MG 11/24/2019 12:00:00 AM EDT 1.0 {tablet_as_needed} active Percocet 10-3 25 MG eCW1 (Former[facility]) Acetaminophen 325 MG / Oxycodone Hydroch loride 10 MG Oral Tablet [Percocet] Percocet 10-325 MG Percocet 10-325 MG 11/24/2019 12:00:00 AM EDT 1.0 {tablet_as_needed} active Percocet 10-3 25 MG eCW1 (Former[facility]) Acetaminophen 325 MG / Oxycodone Hydroch loride 10 MG Oral Tablet [Percocet] Percocet 10-325 MG Percocet 10-325 MG 11/24/2019 12:00:00 AM EDT 1.0 {tablet_as_needed} active Percocet 10-3 25 MG eCW1 (Former[facility]) Acetaminophen 325 MG / Oxycodone Hydroch loride 10 MG Oral Tablet [Percocet] Percocet 10-325 MG Percocet 10-325 MG 11/24/2019 12:00:00 AM EDT 1.0 {tablet_as_needed} active Percocet 10-3 25 MG eCW1 (Formerly [facility]) atorvastatin 40 MG Oral Tablet ATORVASTATIN CALCIUM [...] EDT active Diazepam 2 MG eCW1 (Former[facility]) Diazepam 2 MG Oral Tablet Diazepam 2 MG 11/10/2019 12:00:00 AM EDT 1.0 {tablet_as_needed} active Diazepam 2 MG eCW1 (Formerly [facility]) Diazepam 2 MG Oral Tablet Diazepam 2 MG 11/10/2019 12:00:00 AM EDT 1.0 {tablet_as_needed} active Diazepam 2 MG eCW1 (Formerly [facility]) Diazepam 2 MG Oral Tablet Diazepam 2 MG 11/10/2019 12:00:00 AM EDT active Diazepam 2 MG eCW1 (Formerly [facility]) Diazepam 2 MG Oral Tablet Diazepam 2 MG 11/10/2019 12:00:00 AM EDT active Diazepam 2 MG eCW1 (Formerly [facility]) Diazepam 2 MG Oral Tablet Diazepam 2 MG 11/10/2019 12:00:00 AM EDT active Diazepam 2 MG eCW1 (Former[facility]) Diazepam 2 MG Oral Tablet Diazepam 2 MG 11/10/2019 12:00:00 AM EDT active Diazepam 2 MG eCW1 (Former[facility]) Diazepam 2 MG Oral Tablet Diazepam 2 MG 11/10/2019 12:00:00 AM EDT active Diazepam 2 MG eCW1 (Formerly [facility]) Diazepam 2 MG Oral Tablet Diazepam 2 MG 11/10/2019 12:00:00 AM EDT active Diazepam 2 MG eCW1 (Former[facility]) Diazepam 2 MG Oral Tablet Diazepam 2 MG 11/10/2019 12:00:00 AM EDT 1.0 {tablet_as_needed} active Diazepam 2 MG eCW1 (Formerly [facility]) Diazepam 2 MG Oral Tablet Diazepam 2 MG 11/10/2019 12:00:00 AM EDT 1.0 {tablet_as_needed} active Diazepam 2 MG eCW1 (Formerly [facility]) Diazepam 2 MG Oral Tablet Diazepam 2 MG 11/10/2019 12:00:00 AM EDT active Diazepam 2 MG eCW1 ([facility]) Diazepam 2 MG Oral Tablet Diazepam 2 MG 11/10/2019 12:00:00 AM EDT 1.0 {tablet_as_needed} active Diazepam 2 MG eCW1 ([facility]) Diazepam 2 MG Oral Tablet Diazepam 2 MG 11/10/2019 12:00:00 AM EDT active Diazepam 2 MG eCW1 ([facility]) Diazepam 2 MG Oral Tablet Diazepam 2 MG 11/10/2019 12:00:00 AM EDT 1.0 {tablet_as_needed} active Diazepam 2 MG eCW1 (Former[facility]) Diazepam 2 MG Oral Tablet Diazepam 2 MG 11/10/2019 12:00:00 AM EDT active Diazepam 2 MG eCW1 ([facility]) Diazepam 2 MG Oral Tablet Diazepam 2 MG 11/10/2019 12:00:00 AM EDT active Diazepam 2 MG eCW1 (Former[facility]) Diazepam 2 MG Oral Tablet Diazepam 2 MG 11/10/2019 12:00:00 AM EDT active Diazepam 2 MG eCW1 ([facility]) Diazepam 2 MG Oral Tablet Diazepam 2 MG 11/10/2019 12:00:00 AM EDT 1.0 {tablet_as_needed} active Diazepam 2 MG eCW1 ([facility]) Diazepam 2 MG Oral Tablet Diazepam 2 MG 11/10/2019 12:00:00 AM EDT 1.0 {tablet_as_needed} active Diazepam 2 MG eCW1 ([facility]) Diazepam 2 MG Oral Tablet Diazepam 2 MG 11/10/2019 12:00:00 AM EDT 1.0 {tablet_as_needed} active Diazepam 2 MG eCW1 ([facility]) Diazepam 2 MG Oral Tablet Diazepam 2 MG 11/10/2019 12:00:00 AM EDT active Diazepam 2 MG eCW1 (Former[facility]) Diazepam 2 MG Oral Tablet Diazepam 2 MG 11/10/2019 12:00:00 AM EDT active Diazepam 2 MG eCW1 ([facility]) Diazepam 2 MG Oral Tablet Diazepam 2 MG 11/10/2019 12:00:00 AM EDT active Diazepam 2 MG eCW1 ([facility]) Diazepam 2 MG Oral Tablet Diazepam 2 MG 11/10/2019 12:00:00 AM EDT active Diazepam 2 MG eCW1 ([facility]) Diazepam 2 MG Oral Tablet Diazepam 2 MG 11/10/2019 12:00:00 AM EDT active Diazepam 2 MG eCW1 ([facility]) Diazepam 2 MG Oral Tablet Diazepam 2 MG 11/10/2019 12:00:00 AM EDT active Diazepam 2 MG eCW1 ([facility]) Diazepam 2 MG Oral Tablet Diazepam 2 MG 11/10/2019 12:00:00 AM EDT active Diazepam 2 MG eCW1 ([facility]) Diazepam 2 MG Oral Tablet Diazepam 2 MG 11/10/2019 12:00:00 AM EDT 1.0 {tablet_as_needed} active Diazepam 2 MG eCW1 (Former[facility]) Diazepam 2 MG Oral Tablet Diazepam 2 MG 11/10/2019 12:00:00 AM EDT active Diazepam 2 MG eCW1 ([facility]) Diazepam 2 MG Oral Tablet Diazepam 2 MG 11/10/2019 12:00:00 AM EDT active Diazepam 2 MG eCW1 ([facility]) Diazepam 2 MG Oral Tablet Diazepam 2 MG 11/10/2019 12:00:00 AM EDT active Diazepam 2 MG eCW1 ([facility]) Diazepam 2 MG Oral Tablet Diazepam 2 MG 11/10/2019 12:00:00 AM EDT active Diazepam 2 MG eCW1 ([facility]) Diazepam 2 MG Oral Tablet Diazepam 2 MG 11/10/2019 12:00:00 AM EDT 1.0 {tablet_as_needed} active Diazepam 2 MG eCW1 ([facility]) Diazepam 2 MG Oral Tablet Diazepam 2 MG 11/10/2019 12:00:00 AM EDT active Diazepam 2 MG eCW1 ([facility]) Diazepam 2 MG Oral Tablet Diazepam 2 MG 11/10/2019 12:00:00 AM EDT 1.0 {tablet_as_needed} active Diazepam 2 MG eCW1 ([facility]) Diazepam 2 MG Oral Tablet Diazepam 2 MG 11/10/2019 12:00:00 AM EDT active Diazepam 2 MG eCW1 ([facility]) Diazepam 2 MG Oral Tablet Diazepam 2 MG 11/10/2019 12:00:00 AM EDT active Diazepam 2 MG eCW1 ([facility]) Diazepam 2 MG Oral Tablet Diazepam 2 MG 11/10/2019 12:00:00 AM EDT 1.0 {tablet_as_needed} active Diazepam 2 MG eCW1 ([facility]) Diazepam 2 MG Oral Tablet Diazepam 2 MG 11/10/2019 12:00:00 AM EDT 1.0 {tablet_as_needed} active Diazepam 2 MG eCW1 ([facility]) Diazepam 2 MG Oral Tablet Diazepam 2 MG 11/10/2019 12:00:00 AM EDT active Diazepam 2 MG eCW1 ([facility]) Diazepam 2 MG Oral Tablet Diazepam 2 MG 11/10/2019 12:00:00 AM EDT 1.0 {tablet_as_needed} active Diazepam 2 MG eCW1 ([facility]) Diazepam 2 MG Oral Tablet Diazepam 2 MG 11/10/2019 12:00:00 AM EDT 1.0 {tablet_as_needed} active Diazepam 2 MG eCW1 ([facility]) Diazepam 2 MG Oral Tablet Diazepam 2 MG 11/10/2019 12:00:00 AM EDT 1.0 {tablet_as_needed} active Diazepam 2 MG eCW1 ([facility]) Diazepam 2 MG Oral Tablet Diazepam 2 MG 11/10/2019 12:00:00 AM EDT 1.0 {tablet_as_needed} active Diazepam 2 MG eCW1 ([facility]) Diazepam 2 MG Oral Tablet Diazepam 2 MG 11/10/2019 12:00:00 AM EDT active Diazepam 2 MG eCW1 ([facility]) Diazepam 2 MG Oral Tablet Diazepam 2 MG 11/10/2019 12:00:00 AM EDT active Diazepam 2 MG eCW1 ([facility]) Diazepam 2 MG Oral Tablet Diazepam 2 MG 11/10/2019 12:00:00 AM EDT 1.0 {tablet_as_needed} active Diazepam 2 MG eCW1 ([facility]) Diazepam 2 MG Oral Tablet Diazepam 2 MG 11/10/2019 12:00:00 AM EDT 1.0 {tablet_as_needed} active Diazepam 2 MG eCW1 ([facility]) Diazepam 2 MG Oral Tablet Diazepam 2 MG 11/10/2019 12:00:00 AM EDT active Diazepam 2 MG eCW1 ([facility]) Diazepam 2 MG Oral Tablet Diazepam 2 MG 11/10/2019 12:00:00 AM EDT 1.0 {tablet_as_needed} active Diazepam 2 MG eCW1 ([facility]) Diazepam 2 MG Oral Tablet Diazepam 2 MG 11/10/2019 12:00:00 AM EDT active Diazepam 2 MG eCW1 ([facility]) Diazepam 2 MG Oral Tablet Diazepam 2 MG 11/10/2019 12:00:00 AM EDT active Diazepam 2 MG eCW1 ([facility]) Diazepam 2 MG Oral Tablet Diazepam 2 MG 11/10/2019 12:00:00 AM EDT active Diazepam 2 MG eCW1 ([facility]) Diazepam 2 MG Oral Tablet Diazepam 2 MG 11/10/2019 12:00:00 AM EDT active Diazepam 2 MG eCW1 ([facility]) Diazepam 2 MG Oral Tablet Diazepam 2 MG 11/10/2019 12:00:00 AM EDT active Diazepam 2 MG eCW1 ([facility]) Diazepam 2 MG Oral Tablet Diazepam 2 MG 11/10/2019 12:00:00 AM EDT active Diazepam 2 MG eCW1 ([facility]) Diazepam 2 MG Oral Tablet Diazepam 2 MG 11/10/2019 12:00:00 AM EDT 1.0 {tablet_as_needed} active Diazepam 2 MG eCW1 ([facility]) Diazepam 2 MG Oral Tablet Diazepam 2 MG 11/10/2019 12:00:00 AM EDT active Diazepam 2 MG eCW1 ([facility]) Diazepam 2 MG Oral Tablet Diazepam 2 MG 11/10/2019 12:00:00 AM EDT active Diazepam 2 MG eCW1 ([facility]) Diazepam 2 MG Oral Tablet Diazepam 2 MG 11/10/2019 12:00:00 AM EDT 1.0 {tablet_as_needed} active Diazepam 2 MG eCW1 ([facility]) Diazepam 2 MG Oral Tablet Diazepam 2 MG 11/10/2019 12:00:00 AM EDT active Diazepam 2 MG eCW1 ([facility]) Diazepam 2 MG Oral Tablet Diazepam 2 MG 11/10/2019 12:00:00 AM EDT 1.0 {tablet_as_needed} active Diazepam 2 MG eCW1 ([facility]) Diazepam 2 MG Oral Tablet Diazepam 2 MG 11/10/2019 12:00:00 AM EDT 1.0 {tablet_as_needed} active Diazepam 2 MG eCW1 ([facility]) Diazepam 2 MG Oral Tablet Diazepam 2 MG 11/10/2019 12:00:00 AM EDT 1.0 {tablet_as_needed} active Diazepam 2 MG eCW1 ([facility]) Diazepam 2 MG Oral Tablet Diazepam 2 MG 11/10/2019 12:00:00 AM EDT 1.0 {tablet_as_needed} active Diazepam 2 MG eCW1 ([facility]) Diazepam 2 MG Oral Tablet Diazepam 2 MG 11/10/2019 12:00:00 AM EDT active Diazepam 2 MG eCW1 ([facility]) Diazepam 2 MG Oral Tablet Diazepam 2 MG 11/10/2019 12:00:00 AM EDT 1.0 {tablet_as_needed} active Diazepam 2 MG eCW1 (Formerly [facility]) Diazepam 2 MG Oral Tablet Diazepam 2 MG 11/10/2019 12:00:00 AM EDT active Diazepam 2 MG eCW1 (Formerly [facility]) Diazepam 2 MG Oral Tablet Diazepam 2 MG 11/10/2019 12:00:00 AM EDT 1.0 {tablet_as_needed} active Diazepam 2 MG eCW1 (Formerly [facility]) Diazepam 2 MG Oral Tablet Diazepam 2 MG 11/10/2019 12:00:00 AM EDT active Diazepam 2 MG eCW1 (Formerly [facility]) Diazepam 2 MG Oral Tablet Diazepam 2 MG 11/10/2019 12:00:00 AM EDT active Diazepam 2 MG eCW1 (Formerly [facility]) Diazepam 2 MG Oral Tablet Diazepam 2 MG 11/10/2019 12:00:00 AM EDT active Diazepam 2 MG eCW1 (Formerly [facility]) Diazepam 2 MG Oral Tablet Diazepam 2 MG 11/10/2019 12:00:00 AM EDT active Diazepam 2 MG eCW1 (Formerly [facility]) Diazepam 2 MG Oral Tablet Diazepam 2 MG 11/10/2019 12:00:00 AM EDT active Diazepam 2 MG eCW1 (Formerly [facility]) Diazepam 2 MG Oral Tablet Diazepam 2 MG 11/10/2019 12:00:00 AM EDT active Diazepam 2 MG eCW1 (Formerly [facility]) Diazepam 2 MG Oral Tablet Diazepam 2 MG 11/10/2019 12:00:00 AM EDT active Diazepam 2 MG eCW1 (Formerly [facility]) Diazepam 2 MG Oral Tablet Diazepam 2 MG 11/10/2019 12:00:00 AM EDT active Diazepam 2 MG eCW1 (Formerly [facility]) Diazepam 2 MG Oral Tablet Diazepam 2 MG 11/10/2019 12:00:00 AM EDT active Diazepam 2 MG eCW1 (Formerly [facility]) 15 mg 11/04/2019 12:00:00 AM EDT tablet [...] TIMES A DAY SOLD: 01/05/2020 [facility] 300 mg 10/03/2019 12:00:00 AM [...] = THREE TABLETS SOLD: 10/03/2019 [facility] 20 mg 10/01/2019 12:00:00 AM EDT tablet 60 TAKE ONE TABLET BY MOUTH TWICE A DAY TAKE ONE TABLET BY MOUTH TWICE A DAY SOLD: 10/01/2019 [facility] 250 mg 09/22/2019 12:00:00 AM EDT tablet 30 TAKE 1/2 TABLET BY MOUTH TWO TIMES A DAY TAKE 1/2 TABLET BY MOUTH TWO TIMES A DAY SOLD: 10/24/2019 [facility] Primidone 250 MG Oral Tablet Primidone 09/22/2019 12:00:00 AM EDT active MEDENT ([facility], ) 250 mg 09/22/2019 12:00:00 AM EDT tablet 30 TAKE 1/2 TABLET BY MOUTH TWO TIMES A DAY TAKE 1/2 TABLET BY MOUTH TWO TIMES A DAY SOLD: 09/24/2019 [facility] 10-325 mg 09/14/2019 12:00:00 AM [...] Spiriva Respimat 2 .5 MCG/ACT eCW1 (Formerly [facility]) 28 ACTUAT tiotropium 0.0025 MG/ACTUAT Me tered Dose Inhaler [Spiriva] Spiriva Respimat 2.5 MCG/ACT Spiriva Respimat 2.5 MCG/ACT 09/04/2019 12:00:00 AM EDT 2.0 {puffs} suspended Spiriva Respimat 2 .5 MCG/ACT eCW1 (Formerly [facility]) 28 ACTUAT tiotropium 0.0025 MG/ACTUAT Me tered Dose Inhaler [Spiriva] Spiriva Respimat 2.5 MCG/ACT Spiriva Respimat 2.5 MCG/ACT 09/04/2019 12:00:00 AM EDT 2.0 {puffs} active Spiriva Respimat 2.5 MCG/ACT eCW1 (Formerly [facility]) 28 ACTUAT tiotropium 0.0025 MG/ACTUAT Me tered Dose Inhaler [Spiriva] Spiriva Respimat 2.5 MCG/ACT Spiriva Respimat 2.5 MCG/ACT 09/04/2019 12:00:00 AM EDT 2.0 {puffs} suspended Spiriva Respimat 2 .5 MCG/ACT eCW1 (Formerly [facility]) 15 mg 09/04/2019 12:00:00 AM EDT tablet [...] active Spiriva Respimat 2.5 MCG/ACT eCW1 (Formerly [facility]) 28 ACTUAT tiotropium 0.0025 MG/ACTUAT Me tered Dose Inhaler [Spiriva] Spiriva Respimat 2.5 MCG/ACT Spiriva Respimat 2.5 MCG/ACT 09/04/2019 12:00:00 AM EDT 2.0 {puffs} active Spiriva Respimat 2.5 MCG/ACT eCW1 (Formerly [facility]) 28 ACTUAT tiotropium 0.0025 MG/ACTUAT Me tered Dose Inhaler [Spiriva] Spiriva Respimat 2.5 MCG/ACT Spiriva Respimat 2.5 MCG/ACT 09/04/2019 12:00:00 AM EDT 2.0 {puffs} suspended Spiriva Respimat 2 .5 MCG/ACT eCW1 (Formerly [facility]) 28 ACTUAT tiotropium 0.0025 MG/ACTUAT Me tered Dose Inhaler [Spiriva] Spiriva Respimat 2.5 MCG/ACT Spiriva Respimat 2.5 MCG/ACT 09/04/2019 12:00:00 AM EDT 2.0 {puffs} active Spiriva Respimat 2.5 MCG/ACT eCW1 (Formerly [facility]) 28 ACTUAT tiotropium 0.0025 MG/ACTUAT Me tered Dose Inhaler [Spiriva] Spiriva Respimat 2.5 MCG/ACT Spiriva Respimat 2.5 MCG/ACT 09/04/2019 12:00:00 AM EDT 2.0 {puffs} suspended Spiriva Respimat 2 .5 MCG/ACT eCW1 (Formerly [facility]) 28 ACTUAT tiotropium 0.0025 MG/ACTUAT Me tered Dose Inhaler [Spiriva] Spiriva Respimat 2.5 MCG/ACT Spiriva Respimat 2.5 MCG/ACT 09/04/2019 12:00:00 AM EDT 2.0 {puffs} active Spiriva Respimat 2.5 MCG/ACT eCW1 ([facility]ly [facility]) 28 ACTUAT tiotropium 0.0025 MG/ACTUAT Me tered Dose Inhaler [Spiriva] Spiriva Respimat 2.5 MCG/ACT Spiriva Respimat 2.5 MCG/ACT 09/04/2019 12:00:00 AM EDT 2.0 {puffs} suspended Spiriva Respimat 2 .5 MCG/ACT eCW1 ([facility]ly [facility]) 28 ACTUAT tiotropium 0.0025 MG/ACTUAT Me tered Dose Inhaler [Spiriva] Spiriva Respimat 2.5 MCG/ACT Spiriva Respimat 2.5 MCG/ACT 09/04/2019 12:00:00 AM EDT 2.0 {puffs} active Spiriva Respimat 2.5 MCG/ACT eCW1 ([facility]ly [facility]) 28 ACTUAT tiotropium 0.0025 MG/ACTUAT Me tered Dose Inhaler [Spiriva] Spiriva Respimat 2.5 MCG/ACT Spiriva Respimat 2.5 MCG/ACT 09/04/2019 12:00:00 AM EDT 2.0 {puffs} active Spiriva Respimat 2.5 MCG/ACT eCW1 ([facility]) 28 ACTUAT tiotropium 0.0025 MG/ACTUAT Me tered Dose Inhaler [Spiriva] Spiriva Respimat 2.5 MCG/ACT Spiriva Respimat 2.5 MCG/ACT 09/04/2019 12:00:00 AM EDT 2.0 {puffs} suspended Spiriva Respimat 2 .5 MCG/ACT eCW1 ([facility]ly [facility]) 28 ACTUAT tiotropium 0.0025 MG/ACTUAT Me tered Dose Inhaler [Spiriva] Spiriva Respimat 2.5 MCG/ACT Spiriva Respimat 2.5 MCG/ACT 09/04/2019 12:00:00 AM EDT 2.0 {puffs} active Spiriva Respimat 2.5 MCG/ACT eCW1 ([facility]) 28 ACTUAT tiotropium 0.0025 MG/ACTUAT Me tered Dose Inhaler [Spiriva] Spiriva Respimat 2.5 MCG/ACT Spiriva Respimat 2.5 MCG/ACT 09/04/2019 12:00:00 AM EDT 2.0 {puffs} suspended Spiriva Respimat 2 .5 MCG/ACT eCW1 ([facility]ly [facility]) 28 ACTUAT tiotropium 0.0025 MG/ACTUAT Me tered Dose Inhaler [Spiriva] Spiriva Respimat 2.5 MCG/ACT Spiriva Respimat 2.5 MCG/ACT 09/04/2019 12:00:00 AM EDT 2.0 {puffs} active Spiriva Respimat 2.5 MCG/ACT eCW1 ([facility]) 28 ACTUAT tiotropium 0.0025 MG/ACTUAT Me tered Dose Inhaler [Spiriva] Spiriva Respimat 2.5 MCG/ACT Spiriva Respimat 2.5 MCG/ACT 09/04/2019 12:00:00 AM EDT 2.0 {puffs} suspended Spiriva Respimat 2 .5 MCG/ACT eCW1 ([facility]) 28 ACTUAT tiotropium 0.0025 MG/ACTUAT Me tered Dose Inhaler [Spiriva] Spiriva Respimat 2.5 MCG/ACT Spiriva Respimat 2.5 MCG/ACT 09/04/2019 12:00:00 AM EDT 2.0 {puffs} active Spiriva Respimat 2.5 MCG/ACT eCW1 ([facility]) 28 ACTUAT tiotropium 0.0025 MG/ACTUAT Me tered Dose Inhaler [Spiriva] Spiriva Respimat 2.5 MCG/ACT Spiriva Respimat 2.5 MCG/ACT 09/04/2019 12:00:00 AM EDT 2.0 {puffs} active Spiriva Respimat 2.5 MCG/ACT eCW1 ([facility]) 28 ACTUAT tiotropium 0.0025 MG/ACTUAT Me tered Dose Inhaler [Spiriva] Spiriva Respimat 2.5 MCG/ACT Spiriva Respimat 2.5 MCG/ACT 09/04/2019 12:00:00 AM EDT 2.0 {puffs} active Spiriva Respimat 2.5 MCG/ACT eCW1 ([facility]) 28 ACTUAT tiotropium 0.0025 MG/ACTUAT Me tered Dose Inhaler [Spiriva] Spiriva Respimat 2.5 MCG/ACT Spiriva Respimat 2.5 MCG/ACT 09/04/2019 12:00:00 AM EDT 2.0 {puffs} suspended Spiriva Respimat 2 .5 MCG/ACT eCW1 ([facility]) 28 ACTUAT tiotropium 0.0025 MG/ACTUAT Me tered Dose Inhaler [Spiriva] Spiriva Respimat 2.5 MCG/ACT Spiriva Respimat 2.5 MCG/ACT 09/04/2019 12:00:00 AM EDT 2.0 {puffs} active Spiriva Respimat 2.5 MCG/ACT eCW1 ([facility]) 28 ACTUAT tiotropium 0.0025 MG/ACTUAT Me tered Dose Inhaler [Spiriva] Spiriva Respimat 2.5 MCG/ACT Spiriva Respimat 2.5 MCG/ACT 09/04/2019 12:00:00 AM EDT 2.0 {puffs} active Spiriva Respimat 2.5 MCG/ACT eCW1 ([facility]) 28 ACTUAT tiotropium 0.0025 MG/ACTUAT Me tered Dose Inhaler [Spiriva] Spiriva Respimat 2.5 MCG/ACT Spiriva Respimat 2.5 MCG/ACT 09/04/2019 12:00:00 AM EDT 2.0 {puffs} suspended Spiriva Respimat 2 .5 MCG/ACT eCW1 ([facility]) 28 ACTUAT tiotropium 0.0025 MG/ACTUAT Me tered Dose Inhaler [Spiriva] Spiriva Respimat 2.5 MCG/ACT Spiriva Respimat 2.5 MCG/ACT 09/04/2019 12:00:00 AM EDT 2.0 {puffs} suspended Spiriva Respimat 2 .5 MCG/ACT eCW1 ([facility]) 28 ACTUAT tiotropium 0.0025 MG/ACTUAT Me tered Dose Inhaler [Spiriva] Spiriva Respimat 2.5 MCG/ACT Spiriva Respimat 2.5 MCG/ACT 09/04/2019 12:00:00 AM EDT 2.0 {puffs} active Spiriva Respimat 2.5 MCG/ACT eCW1 ([facility]) 28 ACTUAT tiotropium 0.0025 MG/ACTUAT Me tered Dose Inhaler [Spiriva] Spiriva Respimat 2.5 MCG/ACT Spiriva Respimat 2.5 MCG/ACT 09/04/2019 12:00:00 AM EDT 2.0 {puffs} suspended Spiriva Respimat 2 .5 MCG/ACT eCW1 ([facility]) 28 ACTUAT tiotropium 0.0025 MG/ACTUAT Me tered Dose Inhaler [Spiriva] Spiriva Respimat 2.5 MCG/ACT Spiriva Respimat 2.5 MCG/ACT 09/04/2019 12:00:00 AM EDT 2.0 {puffs} active Spiriva Respimat 2.5 MCG/ACT eCW1 ([facility]) 28 ACTUAT tiotropium 0.0025 MG/ACTUAT Me tered Dose Inhaler [Spiriva] Spiriva Respimat 2.5 MCG/ACT Spiriva Respimat 2.5 MCG/ACT 09/04/2019 12:00:00 AM EDT 2.0 {puffs} suspended Spiriva Respimat 2 .5 MCG/ACT eCW1 ([facility]) 28 ACTUAT tiotropium 0.0025 MG/ACTUAT Me tered Dose Inhaler [Spiriva] Spiriva Respimat 2.5 MCG/ACT Spiriva Respimat 2.5 MCG/ACT 09/04/2019 12:00:00 AM EDT 2.0 {puffs} suspended Spiriva Respimat 2 .5 MCG/ACT eCW1 ([facility]) 28 ACTUAT tiotropium 0.0025 MG/ACTUAT Me tered Dose Inhaler [Spiriva] Spiriva Respimat 2.5 MCG/ACT Spiriva Respimat 2.5 MCG/ACT 09/04/2019 12:00:00 AM EDT 2.0 {puffs} active Spiriva Respimat 2.5 MCG/ACT eCW1 ([facility]) 28 ACTUAT tiotropium 0.0025 MG/ACTUAT Me tered Dose Inhaler [Spiriva] Spiriva Respimat 2.5 MCG/ACT Spiriva Respimat 2.5 MCG/ACT 09/04/2019 12:00:00 AM EDT 2.0 {puffs} active Spiriva Respimat 2.5 MCG/ACT eCW1 ([facility]) 28 ACTUAT tiotropium 0.0025 MG/ACTUAT Me tered Dose Inhaler [Spiriva] Spiriva Respimat 2.5 MCG/ACT Spiriva Respimat 2.5 MCG/ACT 09/04/2019 12:00:00 AM EDT 2.0 {puffs} suspended Spiriva Respimat 2 .5 MCG/ACT eCW1 ([facility]) 28 ACTUAT tiotropium 0.0025 MG/ACTUAT Me tered Dose Inhaler [Spiriva] Spiriva Respimat 2.5 MCG/ACT Spiriva Respimat 2.5 MCG/ACT 09/04/2019 12:00:00 AM EDT 2.0 {puffs} active Spiriva Respimat 2.5 MCG/ACT eCW1 ([facility]) 28 ACTUAT tiotropium 0.0025 MG/ACTUAT Me tered Dose Inhaler [Spiriva] Spiriva Respimat 2.5 MCG/ACT Spiriva Respimat 2.5 MCG/ACT 09/04/2019 12:00:00 AM EDT 2.0 {puffs} suspended Spiriva Respimat 2 .5 MCG/ACT eCW1 ([facility]) 28 ACTUAT tiotropium 0.0025 MG/ACTUAT Me tered Dose Inhaler [Spiriva] Spiriva Respimat 2.5 MCG/ACT Spiriva Respimat 2.5 MCG/ACT 09/04/2019 12:00:00 AM EDT 2.0 {puffs} active Spiriva Respimat 2.5 MCG/ACT eCW1 ([facility]) 28 ACTUAT tiotropium 0.0025 MG/ACTUAT Me tered Dose Inhaler [Spiriva] Spiriva Respimat 2.5 MCG/ACT Spiriva Respimat 2.5 MCG/ACT 09/04/2019 12:00:00 AM EDT 2.0 {puffs} active Spiriva Respimat 2.5 MCG/ACT eCW1 ([facility]) 28 ACTUAT tiotropium 0.0025 MG/ACTUAT Me tered Dose Inhaler [Spiriva] Spiriva Respimat 2.5 MCG/ACT Spiriva Respimat 2.5 MCG/ACT 09/04/2019 12:00:00 AM EDT 2.0 {puffs} active Spiriva Respimat 2.5 MCG/ACT eCW1 ([facility]) 28 ACTUAT tiotropium 0.0025 MG/ACTUAT Me tered Dose Inhaler [Spiriva] Spiriva Respimat 2.5 MCG/ACT Spiriva Respimat 2.5 MCG/ACT 09/04/2019 12:00:00 AM EDT 2.0 {puffs} active Spiriva Respimat 2.5 MCG/ACT eCW1 ([facility]) 28 ACTUAT tiotropium 0.0025 MG/ACTUAT Me tered Dose Inhaler [Spiriva] Spiriva Respimat 2.5 MCG/ACT Spiriva Respimat 2.5 MCG/ACT 09/04/2019 12:00:00 AM EDT 2.0 {puffs} active Spiriva Respimat 2.5 MCG/ACT eCW1 ([facility]) 28 ACTUAT tiotropium 0.0025 MG/ACTUAT Me tered Dose Inhaler [Spiriva] Spiriva Respimat 2.5 MCG/ACT Spiriva Respimat 2.5 MCG/ACT 09/04/2019 12:00:00 AM EDT 2.0 {puffs} suspended Spiriva Respimat 2 .5 MCG/ACT eCW1 ([facility]) 28 ACTUAT tiotropium 0.0025 MG/ACTUAT Me tered Dose Inhaler [Spiriva] Spiriva Respimat 2.5 MCG/ACT Spiriva Respimat 2.5 MCG/ACT 09/04/2019 12:00:00 AM EDT 2.0 {puffs} active Spiriva Respimat 2.5 MCG/ACT eCW1 ([facility]) 28 ACTUAT tiotropium 0.0025 MG/ACTUAT Me tered Dose Inhaler [Spiriva] Spiriva Respimat 2.5 MCG/ACT Spiriva Respimat 2.5 MCG/ACT 09/04/2019 12:00:00 AM EDT 2.0 {puffs} suspended Spiriva Respimat 2 .5 MCG/ACT eCW1 ([facility]) 28 ACTUAT tiotropium 0.0025 MG/ACTUAT Me tered Dose Inhaler [Spiriva] Spiriva Respimat 2.5 MCG/ACT Spiriva Respimat 2.5 MCG/ACT 09/04/2019 12:00:00 AM EDT 2.0 {puffs} active Spiriva Respimat 2.5 MCG/ACT eCW1 ([facility]) 28 ACTUAT tiotropium 0.0025 MG/ACTUAT Me tered Dose Inhaler [Spiriva] Spiriva Respimat 2.5 MCG/ACT Spiriva Respimat 2.5 MCG/ACT 09/04/2019 12:00:00 AM EDT 2.0 {puffs} active Spiriva Respimat 2.5 MCG/ACT eCW1 ([facility]) 28 ACTUAT tiotropium 0.0025 MG/ACTUAT Me tered Dose Inhaler [Spiriva] Spiriva Respimat 2.5 MCG/ACT Spiriva Respimat 2.5 MCG/ACT 09/04/2019 12:00:00 AM EDT 2.0 {puffs} active Spiriva Respimat 2.5 MCG/ACT eCW1 ([facility]) 28 ACTUAT tiotropium 0.0025 MG/ACTUAT Me tered Dose Inhaler [Spiriva] Spiriva Respimat 2.5 MCG/ACT Spiriva Respimat 2.5 MCG/ACT 09/04/2019 12:00:00 AM EDT 2.0 {puffs} suspended Spiriva Respimat 2 .5 MCG/ACT eCW1 (Formerly [facility]) 28 ACTUAT tiotropium 0.0025 MG/ACTUAT Me tered Dose Inhaler [Spiriva] Spiriva Respimat 2.5 MCG/ACT Spiriva Respimat 2.5 MCG/ACT 09/04/2019 12:00:00 AM EDT 2.0 {puffs} suspended Spiriva Respimat 2 .5 MCG/ACT eCW1 ([facility]) 28 ACTUAT tiotropium 0.0025 MG/ACTUAT Me tered Dose Inhaler [Spiriva] Spiriva Respimat 2.5 MCG/ACT Spiriva Respimat 2.5 MCG/ACT 09/04/2019 12:00:00 AM EDT 2.0 {puffs} active Spiriva Respimat 2.5 MCG/ACT eCW1 ([facility]ly [facility]) 28 ACTUAT tiotropium 0.0025 MG/ACTUAT Me tered Dose Inhaler [Spiriva] Spiriva Respimat 2.5 MCG/ACT Spiriva Respimat 2.5 MCG/ACT 09/04/2019 12:00:00 AM EDT 2.0 {puffs} active Spiriva Respimat 2.5 MCG/ACT eCW1 (Formerly [facility]) 28 ACTUAT tiotropium 0.0025 MG/ACTUAT Me tered Dose Inhaler [Spiriva] Spiriva Respimat 2.5 MCG/ACT Spiriva Respimat 2.5 MCG/ACT 09/04/2019 12:00:00 AM EDT 2.0 {puffs} active Spiriva Respimat 2.5 MCG/ACT eCW1 (Formerly [facility]) 28 ACTUAT tiotropium 0.0025 MG/ACTUAT Me tered Dose Inhaler [Spiriva] Spiriva Respimat 2.5 MCG/ACT Spiriva Respimat 2.5 MCG/ACT 09/04/2019 12:00:00 AM EDT 2.0 {puffs} active Spiriva Respimat 2.5 MCG/ACT eCW1 (Formerly [facility]) 28 ACTUAT tiotropium 0.0025 MG/ACTUAT Me tered Dose Inhaler [Spiriva] Spiriva Respimat 2.5 MCG/ACT Spiriva Respimat 2.5 MCG/ACT 09/04/2019 12:00:00 AM EDT 2.0 {puffs} active Spiriva Respimat 2.5 MCG/ACT eCW1 (Formerly [facility]) 28 ACTUAT tiotropium 0.0025 MG/ACTUAT Me tered Dose Inhaler [Spiriva] Spiriva Respimat 2.5 MCG/ACT Spiriva Respimat 2.5 MCG/ACT 09/04/2019 12:00:00 AM EDT 2.0 {puffs} suspended Spiriva Respimat 2 .5 MCG/ACT eCW1 (Formerly [facility]) Morphine Sulfate 15 MG Extended Release Oral Tablet Mo rphine Sulfate ER 15 MG Morphine Sulfate ER 15 MG 09/03/2019 12:00:00 AM EDT active Morphine Sulfate ER 15 MG eCW1 (Formerly [facility]) Morphine Sulfate 15 MG Extended Release Oral Tablet Mo rphine Sulfate ER 15 MG Morphine Sulfate ER 15 MG 09/03/2019 12:00:00 AM EDT active Morphine Sulfate ER 15 MG eCW1 (Formerly [facility]) Morphine Sulfate 15 MG Extended Release Oral Tablet Mo rphine Sulfate ER 15 MG Morphine Sulfate ER 15 MG 09/03/2019 12:00:00 AM EDT active Morphine Sulfate ER 15 MG eCW1 (Formerly [facility]) Morphine Sulfate 15 MG Extended Release Oral Tablet Mo rphine Sulfate ER 15 MG Morphine Sulfate ER 15 MG 09/03/2019 12:00:00 AM EDT active Morphine Sulfate ER 15 MG eCW1 (Former[facility]) Morphine Sulfate 15 MG Extended Release Oral Tablet Mo rphine Sulfate ER 15 MG Morphine Sulfate ER 15 MG 09/03/2019 12:00:00 AM EDT active Morphine Sulfate ER 15 MG eCW1 ([facility]) Morphine Sulfate 15 MG Extended Release Oral Tablet Mo rphine Sulfate ER 15 MG Morphine Sulfate ER 15 MG 09/03/2019 12:00:00 AM EDT active Morphine Sulfate ER 15 MG eCW1 ([facility]) Morphine Sulfate 15 MG Extended Release Oral Tablet Mo rphine Sulfate ER 15 MG Morphine Sulfate ER 15 MG 09/03/2019 12:00:00 AM EDT active Morphine Sulfate ER 15 MG eCW1 ([facility]) Morphine Sulfate 15 MG Extended Release Oral Tablet Mo rphine Sulfate ER 15 MG Morphine Sulfate ER 15 MG 09/03/2019 12:00:00 AM EDT active Morphine Sulfate ER 15 MG eCW1 ([facility]) Morphine Sulfate 15 MG Extended Release Oral Tablet Mo rphine Sulfate ER 15 MG Morphine Sulfate ER 15 MG 09/03/2019 12:00:00 AM EDT active Morphine Sulfate ER 15 MG eCW1 ([facility]) Morphine Sulfate 15 MG Extended Release Oral Tablet Mo rphine Sulfate ER 15 MG Morphine Sulfate ER 15 MG 09/03/2019 12:00:00 AM EDT active Morphine Sulfate ER 15 MG eCW1 ([facility]ly [facility]) 50 mg 08/27/2019 12:00:00 AM EDT tablet [...] Primidone 08/26/2019 12:00:00 AM EDT completed MEDENT ([facility], ) 200 ACTUAT Albuterol 0.09 MG/ACTUAT Mete red Dose Inhaler [Ventolin] Ventolin HFA 108 (90 Base) MCG/ACT Ventolin HFA 108 (90 Base) MCG/ACT 08/25/2019 12:00:00 AM EDT 1.0 {puff_as_needed} suspended Ventolin HFA 108 (90 Base) MCG/ACT eCW1 ([facility]ly [facility]) tiotropium 0.018 MG/ACTUAT Inhalant Powder [Spiriva] S piriva HandiHaler 18 MCG Spiriva HandiHaler 18 MCG 08/25/2019 12:00:00 AM EDT active Spiriva HandiHaler 18 MCG eCW1 (Formerly [facility]) 200 ACTUAT Albuterol 0.09 MG/ACTUAT Mete red Dose Inhaler [Ventolin] Ventolin HFA 108 (90 Base) MCG/ACT Ventolin HFA 108 (90 Base) MCG/ACT 08/25/2019 12:00:00 AM EDT 1.0 {puff_as_needed} suspended Ventolin HFA 108 (90 Base) MCG/ACT eCW1 (Formerly [facility]) 200 ACTUAT Albuterol 0.09 MG/ACTUAT Mete red Dose Inhaler [Ventolin] Ventolin HFA 108 (90 Base) MCG/ACT Ventolin HFA 108 (90 Base) MCG/ACT 08/25/2019 12:00:00 AM EDT 1.0 {puff_as_needed} suspended Ventolin HFA 108 (90 Base) MCG/ACT eCW1 ([facility]ly [facility]) 200 ACTUAT Albuterol 0.09 MG/ACTUAT Mete red Dose Inhaler [Ventolin] Ventolin HFA 108 (90 Base) MCG/ACT Ventolin HFA 108 (90 Base) MCG/ACT 08/25/2019 12:00:00 AM EDT 1.0 {puff_as_needed} suspended Ventolin HFA 108 (90 Base) MCG/ACT eCW1 ([facility]ly [facility]) tiotropium 0.018 MG/ACTUAT Inhalant Powder [Spiriva] S piriva HandiHaler 18 MCG Spiriva HandiHaler 18 MCG 08/25/2019 12:00:00 AM EDT active Spiriva HandiHaler 18 MCG eCW1 ([facility]ly [facility]) 200 ACTUAT Albuterol 0.09 MG/ACTUAT Mete red Dose Inhaler [Ventolin] Ventolin HFA 108 (90 Base) MCG/ACT Ventolin HFA 108 (90 Base) MCG/ACT 08/25/2019 12:00:00 AM EDT 1.0 {puff_as_needed} active Jovani tolin HFA 108 (90 Base) MCG/ACT eCW1 ([facility]ly [facility]) tiotropium 0.018 MG/ACTUAT Inhalant Powder [Spiriva] S piriva HandiHaler 18 MCG Spiriva HandiHaler 18 MCG 08/25/2019 12:00:00 AM EDT active Spiriva HandiHaler 18 MCG eCW1 ([facility]ly [facility]) 200 ACTUAT Albuterol 0.09 MG/ACTUAT Mete red Dose Inhaler [Ventolin] Ventolin HFA 108 (90 Base) MCG/ACT Ventolin HFA 108 (90 Base) MCG/ACT 08/25/2019 12:00:00 AM EDT 1.0 {puff_as_needed} suspended Ventolin HFA 108 (90 Base) MCG/ACT eCW1 ([facility]ly [facility]) 200 ACTUAT Albuterol 0.09 MG/ACTUAT Mete red Dose Inhaler [Ventolin] Ventolin HFA 108 (90 Base) MCG/ACT Ventolin HFA 108 (90 Base) MCG/ACT 08/25/2019 12:00:00 AM EDT 1.0 {puff_as_needed} active Jovani tolin HFA 108 (90 Base) MCG/ACT eCW1 ([facility]ly [facility]) tiotropium 0.018 MG/ACTUAT Inhalant Powder [Spiriva] S piriva HandiHaler 18 MCG Spiriva HandiHaler 18 MCG 08/25/2019 12:00:00 AM EDT active Spiriva HandiHaler 18 MCG eCW1 ([facility]ly [facility]) 200 ACTUAT Albuterol 0.09 MG/ACTUAT Mete red Dose Inhaler [Ventolin] Ventolin HFA 108 (90 Base) MCG/ACT Ventolin HFA 108 (90 Base) MCG/ACT 08/25/2019 12:00:00 AM EDT 1.0 {puff_as_needed} active Jovani tolin HFA 108 (90 Base) MCG/ACT eCW1 ([facility]) tiotropium 0.018 MG/ACTUAT Inhalant Powder [Spiriva] S piriva HandiHaler 18 MCG Spiriva HandiHaler 18 MCG 08/25/2019 12:00:00 AM EDT active Spiriva HandiHaler 18 MCG eCW1 ([facility]ly [facility]) 200 ACTUAT Albuterol 0.09 MG/ACTUAT Mete red Dose Inhaler [Ventolin] Ventolin HFA 108 (90 Base) MCG/ACT Ventolin HFA 108 (90 Base) MCG/ACT 08/25/2019 12:00:00 AM EDT 1.0 {puff_as_needed} active Jovani tolin HFA 108 (90 Base) MCG/ACT eCW1 ([facility]ly [facility]) 200 ACTUAT Albuterol 0.09 MG/ACTUAT Mete red Dose Inhaler [Ventolin] Ventolin HFA 108 (90 Base) MCG/ACT Ventolin HFA 108 (90 Base) MCG/ACT 08/25/2019 12:00:00 AM EDT 1.0 {puff_as_needed} suspended Ventolin HFA 108 (90 Base) MCG/ACT eCW1 ([facility]) 200 ACTUAT Albuterol 0.09 MG/ACTUAT Mete red Dose Inhaler [Ventolin] Ventolin HFA 108 (90 Base) MCG/ACT Ventolin HFA 108 (90 Base) MCG/ACT 08/25/2019 12:00:00 AM EDT 1.0 {puff_as_needed} suspended Ventolin HFA 108 (90 Base) MCG/ACT eCW1 ([facility]) 200 ACTUAT Albuterol 0.09 MG/ACTUAT Mete red Dose Inhaler [Ventolin] Ventolin HFA 108 (90 Base) MCG/ACT Ventolin HFA 108 (90 Base) MCG/ACT 08/25/2019 12:00:00 AM EDT 1.0 {puff_as_needed} suspended Ventolin HFA 108 (90 Base) MCG/ACT eCW1 ([facility]) 200 ACTUAT Albuterol 0.09 MG/ACTUAT Mete red Dose Inhaler [Ventolin] Ventolin HFA 108 (90 Base) MCG/ACT Ventolin HFA 108 (90 Base) MCG/ACT 08/25/2019 12:00:00 AM EDT 1.0 {puff_as_needed} suspended Ventolin HFA 108 (90 Base) MCG/ACT eCW1 ([facility]) 200 ACTUAT Albuterol 0.09 MG/ACTUAT Mete red Dose Inhaler [Ventolin] Ventolin HFA 108 (90 Base) MCG/ACT Ventolin HFA 108 (90 Base) MCG/ACT 08/25/2019 12:00:00 AM EDT 1.0 {puff_as_needed} suspended Ventolin HFA 108 (90 Base) MCG/ACT eCW1 ([facility]) 200 ACTUAT Albuterol 0.09 MG/ACTUAT Mete red Dose Inhaler [Ventolin] Ventolin HFA 108 (90 Base) MCG/ACT Ventolin HFA 108 (90 Base) MCG/ACT 08/25/2019 12:00:00 AM EDT 1.0 {puff_as_needed} suspended Ventolin HFA 108 (90 Base) MCG/ACT eCW1 (Formerly [facility]) 200 ACTUAT Albuterol 0.09 MG/ACTUAT Mete red Dose Inhaler [Ventolin] Ventolin HFA 108 (90 Base) MCG/ACT Ventolin HFA 108 (90 Base) MCG/ACT 08/25/2019 12:00:00 AM EDT 1.0 {puff_as_needed} active Jovani tolin HFA 108 (90 Base) MCG/ACT eCW1 (Formerly [facility]) 200 ACTUAT Albuterol 0.09 MG/ACTUAT Mete red Dose Inhaler [Ventolin] Ventolin HFA 108 (90 Base) MCG/ACT Ventolin HFA 108 (90 Base) MCG/ACT 08/25/2019 12:00:00 AM EDT 1.0 {puff_as_needed} suspended Ventolin HFA 108 (90 Base) MCG/ACT eCW1 (Formerly [facility]) tiotropium 0.018 MG/ACTUAT Inhalant Powder [Spiriva] S piriva HandiHaler 18 MCG Spiriva HandiHaler 18 MCG 08/25/2019 12:00:00 AM EDT active Spiriva HandiHaler 18 MCG eCW1 (Formerly [facility]) 200 ACTUAT Albuterol 0.09 MG/ACTUAT Mete red Dose Inhaler [Ventolin] Ventolin HFA 108 (90 Base) MCG/ACT Ventolin HFA 108 (90 Base) MCG/ACT 08/25/2019 12:00:00 AM EDT 1.0 {puff_as_needed} suspended Ventolin HFA 108 (90 Base) MCG/ACT eCW1 (Formerly [facility]) 200 ACTUAT Albuterol 0.09 MG/ACTUAT Mete red Dose Inhaler [Ventolin] Ventolin HFA 108 (90 Base) MCG/ACT Ventolin HFA 108 (90 Base) MCG/ACT 08/25/2019 12:00:00 AM EDT 1.0 {puff_as_needed} active Jovani tolin HFA 108 (90 Base) MCG/ACT eCW1 (Formerly [facility]) 200 ACTUAT Albuterol 0.09 MG/ACTUAT Mete red Dose Inhaler [Ventolin] Ventolin HFA 108 (90 Base) MCG/ACT Ventolin HFA 108 (90 Base) MCG/ACT 08/25/2019 12:00:00 AM EDT 1.0 {puff_as_needed} active Jovani tolin HFA 108 (90 Base) MCG/ACT eCW1 (Formerly [facility]) 200 ACTUAT Albuterol 0.09 MG/ACTUAT Mete red Dose Inhaler [Ventolin] Ventolin HFA 108 (90 Base) MCG/ACT Ventolin HFA 108 (90 Base) MCG/ACT 08/25/2019 12:00:00 AM EDT 1.0 {puff_as_needed} suspended Ventolin HFA 108 (90 Base) MCG/ACT eCW1 (Formerly [facility]) 200 ACTUAT Albuterol 0.09 MG/ACTUAT Mete red Dose Inhaler [Ventolin] Ventolin HFA 108 (90 Base) MCG/ACT Ventolin HFA 108 (90 Base) MCG/ACT 08/25/2019 12:00:00 AM EDT 1.0 {puff_as_needed} suspended Ventolin HFA 108 (90 Base) MCG/ACT eCW1 (Formerly [facility]) 200 ACTUAT Albuterol 0.09 MG/ACTUAT Mete red Dose Inhaler [Ventolin] Ventolin HFA 108 (90 Base) MCG/ACT Ventolin HFA 108 (90 Base) MCG/ACT 08/25/2019 12:00:00 AM EDT 1.0 {puff_as_needed} suspended Ventolin HFA 108 (90 Base) MCG/ACT eCW1 (Formerly [facility]) 200 ACTUAT Albuterol 0.09 MG/ACTUAT Mete red Dose Inhaler [Ventolin] Ventolin HFA 108 (90 Base) MCG/ACT Ventolin HFA 108 (90 Base) MCG/ACT 08/25/2019 12:00:00 AM EDT 1.0 {puff_as_needed} suspended Ventolin HFA 108 (90 Base) MCG/ACT eCW1 (Formerly [facility]) 200 ACTUAT Albuterol 0.09 MG/ACTUAT Mete red Dose Inhaler [Ventolin] Ventolin HFA 108 (90 Base) MCG/ACT Ventolin HFA 108 (90 Base) MCG/ACT 08/25/2019 12:00:00 AM EDT 1.0 {puff_as_needed} suspended Ventolin HFA 108 (90 Base) MCG/ACT eCW1 (Formerly [facility]) 200 ACTUAT Albuterol 0.09 MG/ACTUAT Mete red Dose Inhaler [Ventolin] Ventolin HFA 108 (90 Base) MCG/ACT Ventolin HFA 108 (90 Base) MCG/ACT 08/25/2019 12:00:00 AM EDT 1.0 {puff_as_needed} suspended Ventolin HFA 108 (90 Base) MCG/ACT eCW1 (Formerly [facility]) 200 ACTUAT Albuterol 0.09 MG/ACTUAT Mete red Dose Inhaler [Ventolin] Ventolin HFA 108 (90 Base) MCG/ACT Ventolin HFA 108 (90 Base) MCG/ACT 08/25/2019 12:00:00 AM EDT 1.0 {puff_as_needed} suspended Ventolin HFA 108 (90 Base) MCG/ACT eCW1 (Formerly [facility]) tiotropium 0.018 MG/ACTUAT Inhalant Powder [Spiriva] S piriva HandiHaler 18 MCG Spiriva HandiHaler 18 MCG 08/25/2019 12:00:00 AM EDT active Spiriva HandiHaler 18 MCG eCW1 (Formerly [facility]) 200 ACTUAT Albuterol 0.09 MG/ACTUAT Mete red Dose Inhaler [Ventolin] Ventolin HFA 108 (90 Base) MCG/ACT Ventolin HFA 108 (90 Base) MCG/ACT 08/25/2019 12:00:00 AM EDT 1.0 {puff_as_needed} suspended Ventolin HFA 108 (90 Base) MCG/ACT eCW1 (Formerly [facility]) tiotropium 0.018 MG/ACTUAT Inhalant Powder [Spiriva] S piriva HandiHaler 18 MCG Spiriva HandiHaler 18 MCG 08/25/2019 12:00:00 AM EDT active Spiriva HandiHaler 18 MCG eCW1 (Formerly [facility]) 200 ACTUAT Albuterol 0.09 MG/ACTUAT Mete red Dose Inhaler [Ventolin] Ventolin HFA 108 (90 Base) MCG/ACT Ventolin HFA 108 (90 Base) MCG/ACT 08/25/2019 12:00:00 AM EDT 1.0 {puff_as_needed} active Jovani tolin HFA 108 (90 Base) MCG/ACT eCW1 (Formerly [facility]) 10-325 mg 08/15/2019 12:00:00 AM EDT tablet [...] active Percocet 10-3 25 MG eCW1 (Formerly [facility]) Acetaminophen 325 MG / Oxycodone Hydroch loride 10 MG Oral Tablet [Percocet] Percocet 10-325 MG Percocet 10-325 MG 08/07/2019 12:00:00 AM EDT 1.0 {tablet_as_needed} suspended Percocet 10 -325 MG eCW1 (Formerly [facility]) Acetaminophen 325 MG / Oxycodone Hydroch loride 10 MG Oral Tablet [Percocet] Percocet 10-325 MG Percocet 10-325 MG 08/07/2019 12:00:00 AM EDT 1.0 {tablet_as_needed} suspended Percocet 10 -325 MG eCW1 (Formerly [facility]) Acetaminophen 325 MG / Oxycodone Hydroch loride 10 MG Oral Tablet [Percocet] Percocet 10-325 MG Percocet 10-325 MG 08/07/2019 12:00:00 AM EDT 1.0 {tablet_as_needed} active Percocet 10-3 25 MG eCW1 (Formerly [facility]) Acetaminophen 325 MG / Oxycodone Hydroch loride 10 MG Oral Tablet [Percocet] Percocet 10-325 MG Percocet 10-325 MG 08/07/2019 12:00:00 AM EDT 1.0 {tablet_as_needed} suspended Percocet 10 -325 MG eCW1 (Formerly [facility]) Acetaminophen 325 MG / Oxycodone Hydroch loride 10 MG Oral Tablet [Percocet] Percocet 10-325 MG Percocet 10-325 MG 08/07/2019 12:00:00 AM EDT 1.0 {tablet_as_needed} suspended Percocet 10 -325 MG eCW1 (Formerly [facility]) Acetaminophen 325 MG / Oxycodone Hydroch loride 10 MG Oral Tablet [Percocet] Percocet 10-325 MG Percocet 10-325 MG 08/07/2019 12:00:00 AM EDT 1.0 {tablet_as_needed} active Percocet 10-3 25 MG eCW1 (Formerly [facility]) Acetaminophen 325 MG / Oxycodone Hydroch loride 10 MG Oral Tablet [Percocet] Percocet 10-325 MG Percocet 10-325 MG 08/07/2019 12:00:00 AM EDT 1.0 {tablet_as_needed} suspended Percocet 10 -325 MG eCW1 (Formerly [facility]) Acetaminophen 325 MG / Oxycodone Hydroch loride 10 MG Oral Tablet [Percocet] Percocet 10-325 MG Percocet 10-325 MG 08/07/2019 12:00:00 AM EDT 1.0 {tablet_as_needed} active Percocet 10-3 25 MG eCW1 (Formerly [facility]) Acetaminophen 325 MG / Oxycodone Hydroch loride 10 MG Oral Tablet [Percocet] Percocet 10-325 MG Percocet 10-325 MG 08/07/2019 12:00:00 AM EDT 1.0 {tablet_as_needed} active Percocet 10-3 25 MG eCW1 (Formerly [facility]) Acetaminophen 325 MG / Oxycodone Hydroch loride 10 MG Oral Tablet [Percocet] Percocet 10-325 MG Percocet 10-325 MG 08/07/2019 12:00:00 AM EDT 1.0 {tablet_as_needed} active Percocet 10-3 25 MG eCW1 (Formerly [facility]) Acetaminophen 325 MG / Oxycodone Hydroch loride 10 MG Oral Tablet [Percocet] Percocet 10-325 MG Percocet 10-325 MG 08/07/2019 12:00:00 AM EDT 1.0 {tablet_as_needed} active Percocet 10-3 25 MG eCW1 (Formerly [facility]) Acetaminophen 325 MG / Oxycodone Hydroch loride 10 MG Oral Tablet [Percocet] Percocet 10-325 MG Percocet 10-325 MG 08/07/2019 12:00:00 AM EDT 1.0 {tablet_as_needed} active Percocet 10-3 25 MG eCW1 (Formerly [facility]) Acetaminophen 325 MG / Oxycodone Hydroch loride 10 MG Oral Tablet [Percocet] Percocet 10-325 MG Percocet 10-325 MG 08/07/2019 12:00:00 AM EDT 1.0 {tablet_as_needed} suspended Percocet 10 -325 MG eCW1 (Formerly [facility]) Acetaminophen 325 MG / Oxycodone Hydroch loride 10 MG Oral Tablet [Percocet] Percocet 10-325 MG Percocet 10-325 MG 08/07/2019 12:00:00 AM EDT 1.0 {tablet_as_needed} suspended Percocet 10 -325 MG eCW1 (Formerly [facility]) Acetaminophen 325 MG / Oxycodone Hydroch loride 10 MG Oral Tablet [Percocet] Percocet 10-325 MG Percocet 10-325 MG 08/07/2019 12:00:00 AM EDT 1.0 {tablet_as_needed} suspended Percocet 10 -325 MG eCW1 (Formerly [facility]) Acetaminophen 325 MG / Oxycodone Hydroch loride 10 MG Oral Tablet [Percocet] Percocet 10-325 MG Percocet 10-325 MG 08/07/2019 12:00:00 AM EDT 1.0 {tablet_as_needed} active Percocet 10-3 25 MG eCW1 (Former[facility]) Acetaminophen 325 MG / Oxycodone Hydroch loride 10 MG Oral Tablet [Percocet] Percocet 10-325 MG Percocet 10-325 MG 08/07/2019 12:00:00 AM EDT 1.0 {tablet_as_needed} active Percocet 10-3 25 MG eCW1 (Former[facility]) Acetaminophen 325 MG / Oxycodone Hydroch loride 10 MG Oral Tablet [Percocet] Percocet 10-325 MG Percocet 10-325 MG 08/07/2019 12:00:00 AM EDT 1.0 {tablet_as_needed} active Percocet 10-3 25 MG eCW1 (Formerly [facility]) Acetaminophen 325 MG / Oxycodone Hydroch loride 10 MG Oral Tablet [Percocet] Percocet 10-325 MG Percocet 10-325 MG 08/07/2019 12:00:00 AM EDT 1.0 {tablet_as_needed} active Percocet 10-3 25 MG eCW1 ([facility]) Acetaminophen 325 MG / Oxycodone Hydroch loride 10 MG Oral Tablet [Percocet] Percocet 10-325 MG Percocet 10-325 MG 08/07/2019 12:00:00 AM EDT 1.0 {tablet_as_needed} suspended Percocet 10 -325 MG eCW1 (Former[facility]) Acetaminophen 325 MG / Oxycodone Hydroch loride 10 MG Oral Tablet [Percocet] Percocet 10-325 MG Percocet 10-325 MG 08/07/2019 12:00:00 AM EDT 1.0 {tablet_as_needed} active Percocet 10-3 25 MG eCW1 ([facility]) Acetaminophen 325 MG / Oxycodone Hydroch loride 10 MG Oral Tablet [Percocet] Percocet 10-325 MG Percocet 10-325 MG 08/07/2019 12:00:00 AM EDT 1.0 {tablet_as_needed} active Percocet 10-3 25 MG eCW1 (Former[facility]) Acetaminophen 325 MG / Oxycodone Hydroch loride 10 MG Oral Tablet [Percocet] Percocet 10-325 MG Percocet 10-325 MG 08/07/2019 12:00:00 AM EDT 1.0 {tablet_as_needed} suspended Percocet 10 -325 MG eCW1 (Formerly [facility]) Acetaminophen 325 MG / Oxycodone Hydroch loride 10 MG Oral Tablet [Percocet] Percocet 10-325 MG Percocet 10-325 MG 08/07/2019 12:00:00 AM EDT 1.0 {tablet_as_needed} suspended Percocet 10 -325 MG eCW1 (Formerly [facility]) Acetaminophen 325 MG / Oxycodone Hydroch loride 10 MG Oral Tablet [Percocet] Percocet 10-325 MG Percocet 10-325 MG 08/07/2019 12:00:00 AM EDT 1.0 {tablet_as_needed} suspended Percocet 10 -325 MG eCW1 (Formerly [facility]) Acetaminophen 325 MG / Oxycodone Hydroch loride 10 MG Oral Tablet [Percocet] Percocet 10-325 MG Percocet 10-325 MG 08/07/2019 12:00:00 AM EDT 1.0 {tablet_as_needed} active Percocet 10-3 25 MG eCW1 (Former[facility]) Acetaminophen 325 MG / Oxycodone Hydroch loride 10 MG Oral Tablet [Percocet] Percocet 10-325 MG Percocet 10-325 MG 08/07/2019 12:00:00 AM EDT 1.0 {tablet_as_needed} active Percocet 10-3 25 MG eCW1 (Former[facility]) Acetaminophen 325 MG / Oxycodone Hydroch loride 10 MG Oral Tablet [Percocet] Percocet 10-325 MG Percocet 10-325 MG 08/07/2019 12:00:00 AM EDT 1.0 {tablet_as_needed} active Percocet 10-3 25 MG eCW1 ([facility]ly [facility]) 15 mg 08/06/2019 12:00:00 AM EDT tablet [...] tive Propranolol HCl 10 MG eCW1 (Formerly [facility]) Chlorthalidone 25 MG Oral Tablet Chlorthalidone 25 MG 2019 12:00:00 AM EDT 1.0 {tablet_in_the_morning_with_food} active Chlorthalidone 25 MG eCW1 (Formerly [facility]) 10 mg 08/04/2019 12:00:00 AM EDT tablet 60 TAKE ONE TABLET BY MOUTH TWICE A DAY TAKE ONE TABLET BY MOUTH TWICE A DAY SOLD: 08/05/2019 [facility] Morphine Sulfate 15 MG Extended Release Oral Tablet Mo rphine Sulfate ER 15 MG Morphine Sulfate ER 15 MG 07/28/2019 12:00:00 AM EDT active Morphine Sulfate ER 15 MG eCW1 (Formerly [facility]) Morphine Sulfate 15 MG Extended Release Oral Tablet Mo rphine Sulfate ER 15 MG Morphine Sulfate ER 15 MG 07/28/2019 12:00:00 AM EDT active Morphine Sulfate ER 15 MG eCW1 ([facility]) Morphine Sulfate 15 MG Extended Release Oral Tablet Mo rphine Sulfate ER 15 MG Morphine Sulfate ER 15 MG 07/28/2019 12:00:00 AM EDT active Morphine Sulfate ER 15 MG eCW1 ([facility]) Morphine Sulfate 15 MG Extended Release Oral Tablet Mo rphine Sulfate ER 15 MG Morphine Sulfate ER 15 MG 07/28/2019 12:00:00 AM EDT active Morphine Sulfate ER 15 MG eCW1 ([facility]) Morphine Sulfate 15 MG Extended Release Oral Tablet Mo rphine Sulfate ER 15 MG Morphine Sulfate ER 15 MG 07/28/2019 12:00:00 AM EDT active Morphine Sulfate ER 15 MG eCW1 (Formerly [facility]) 300 mg 07/28/2019 12:00:00 AM EDT capsule 60 TAKE ONE CAPSULE BY MOUTH TWICE A DAY, MAXIMUM DAILY DOSE = 2 CAPSULES TAKE ONE CAPSULE BY MOUTH TWICE A DAY, MAXIMUM DAILY DOSE = 2 CAPSULES SOLD: 08/26/2019 [facility] Morphine Sulfate 15 MG Extended Release Oral Tablet Mo rphine Sulfate ER 15 MG Morphine Sulfate ER 15 MG 07/28/2019 12:00:00 AM EDT active Morphine Sulfate ER 15 MG eCW1 ([facility]) Morphine Sulfate 15 MG Extended Release Oral Tablet Mo rphine Sulfate ER 15 MG Morphine Sulfate ER 15 MG 07/28/2019 12:00:00 AM EDT active Morphine Sulfate ER 15 MG eCW1 ([facility]) Morphine Sulfate 15 MG Extended Release Oral Tablet Mo rphine Sulfate ER 15 MG Morphine Sulfate ER 15 MG 07/28/2019 12:00:00 AM EDT active Morphine Sulfate ER 15 MG eCW1 ([facility]) 300 mg 07/28/2019 12:00:00 AM EDT capsule 60 TAKE ONE CAPSULE BY MOUTH TWICE A DAY, MAXIMUM DAILY DOSE = 2 CAPSULES TAKE ONE CAPSULE BY MOUTH TWICE A DAY, MAXIMUM DAILY DOSE = 2 CAPSULES SOLD: 07/28/2019 [facility] 300 mg 07/28/2019 12:00:00 AM EDT capsule 60 TAKE ONE CAPSULE BY MOUTH TWICE A DAY, MAXIMUM DAILY DOSE = 2 CAPSULES TAKE ONE CAPSULE BY MOUTH TWICE A DAY, MAXIMUM DAILY DOSE = 2 CAPSULES SOLD: 09/24/2019 [facility] Morphine Sulfate 15 MG Extended Release Oral Tablet Mo rphine Sulfate ER 15 MG Morphine Sulfate ER 15 MG 07/28/2019 12:00:00 AM EDT active Morphine Sulfate ER 15 MG eCW1 ([facility]) Morphine Sulfate 15 MG Extended Release Oral Tablet Mo rphine Sulfate ER 15 MG Morphine Sulfate ER 15 MG 07/28/2019 12:00:00 AM EDT active Morphine Sulfate ER 15 MG eCW1 ([facility]) 10-325 mg 07/17/2019 12:00:00 AM EDT tablet 120 TAKE ONE TABLET BY MOUTH EVERY 6 HOURS NEEDED MAXIMUM DAILY DOSE = 4 TAKE ONE TABLET BY MOUTH EVERY 6 HOURS NEEDED MAXIMUM DAILY DOSE = 4 SOLD: 07/17/2019 [facility] Amitriptyline Hydrochloride 25 MG Oral Tablet AMITRIPTYLINE HCL 07/13/2019 12:00:00 AM EDT tablet 90 TAKE THREE TABLETS BY ADENIKE TH EVERY DAY TAKE THREE TABLETS BY MOUTH EVERY DAY SOLD: 09/16/2019 [facility] Amitriptyline Hydrochloride 25 MG Oral [...] MOUTH EVERY DAY SOLD: 10/16/2019 [facility] Acetaminophen 325 MG / Oxycodone Hydroch loride 10 MG Oral Tablet [Percocet] Percocet 10-325 MG Percocet 10-325 MG 07/13/2019 12:00:00 AM EDT active 1 tablet as needed eCW1 ([facility]) Amitriptyline Hydrochloride 25 MG Oral Tablet [...] Morphine Sulfate ER 15 MG eCW1 (Formerly [facility]) Morphine Sulfate 15 MG Extended Release Oral Tablet Mo rphine Sulfate ER 15 MG Morphine Sulfate ER 15 MG 07/07/2019 12:00:00 AM EDT active Morphine Sulfate ER 15 MG eCW1 ([facility]) Morphine Sulfate 15 MG Extended Release Oral Tablet Mo rphine Sulfate ER 15 MG Morphine Sulfate ER 15 MG 07/07/2019 12:00:00 AM EDT active 1 to 2 as directed eCW1 ([facility]ly [facility]) 15 mg 07/07/2019 12:00:00 AM EDT tablet extended release 90 TAKE 1 TABLET BY MOUTH EVERY MORNING AND 2 TABLETS AT BEDTIME, MAXIMUM DAILY DOSE = 3 TABLETS TAKE 1 TABLET BY MOUTH EVERY MORNING AND 2 TABLETS AT BEDTIME, MAXIMUM DAILY DOSE = 3 TABLETS SOLD: 07/08/2019 [facility] Morphine Sulfate 15 MG Extended Release Oral Tablet Mo rphine Sulfate ER 15 MG Morphine Sulfate ER 15 MG 07/07/2019 12:00:00 AM EDT active Morphine Sulfate ER 15 MG eCW1 ([facility]ly [facility]) 100,000 unit/gram 06/25/2019 12:00:00 AM EDT cream [...] TWICE DAILY SOLD: 09/27/2019 [facility] 100,000 unit/gram 06/25/2019 12:00:00 AM EDT cream 30 APPLY TOPICALLY 2 GRAMS TO RASH ON GROIN TWICE DAILY APPLY TOPICALLY 2 GRAMS TO RASH ON GROIN TWICE DAILY SOLD: 06/26/2019 [facility] 10-325 mg 06/18/2019 12:00:00 [...] active Percocet 10-3 25 MG eCW1 ([facility]ly [facility]) Acetaminophen 325 MG / Oxycodone Hydroch loride 10 MG Oral Tablet [Percocet] Percocet 10-325 MG Percocet 10-325 MG 06/17/2019 12:00:00 AM EDT 1.0 {tablet_as_needed} active Percocet 10-3 25 MG eCW1 ([facility]) Acetaminophen 325 MG / Oxycodone Hydroch loride 10 MG Oral Tablet [Percocet] Percocet 10-325 MG Percocet 10-325 MG 06/17/2019 12:00:00 AM EDT active 1 tablet as needed eCW1 ([facility]) Acetaminophen 325 MG / Oxycodone Hydroch loride 10 MG Oral Tablet [Percocet] Percocet 10-325 MG Percocet 10-325 MG 06/17/2019 12:00:00 AM EDT 1.0 {tablet_as_needed} active Percocet 10-3 25 MG eCW1 ([facility]) Acetaminophen 325 MG / Oxycodone Hydroch loride 10 MG Oral Tablet [Percocet] Percocet 10-325 MG Percocet 10-325 MG 06/17/2019 12:00:00 AM EDT active 1 tablet as needed eCW1 ([facility]) Acetaminophen 325 MG / Oxycodone Hydroch loride 10 MG Oral Tablet [Percocet] Percocet 10-325 MG Percocet 10-325 MG 06/17/2019 12:00:00 AM EDT 1.0 {tablet_as_needed} active Percocet 10-3 25 MG eCW1 ([facility]) Acetaminophen 325 MG / Oxycodone Hydroch loride 10 MG Oral Tablet [Percocet] Percocet 10-325 MG Percocet 10-325 MG 06/17/2019 12:00:00 AM EDT 1.0 {tablet_as_needed} active Percocet 10-3 25 MG eCW1 (Formerly [facility]) Acetaminophen 325 MG / Oxycodone Hydroch loride 10 MG Oral Tablet [Percocet] Percocet 10-325 MG Percocet 10-325 MG 06/17/2019 12:00:00 AM EDT 1.0 {tablet_as_needed} active Percocet 10-3 25 MG eCW1 (Formerly [facility]) 5 mg 06/11/2019 12:00:00 AM EDT tablet [...] = 3 TABLETS SOLD: 06/05/2019 [facility] Morphine Sulfate 15 MG Extended Release Oral Tablet Mo rphine Sulfate ER 15 MG Morphine Sulfate ER 15 MG 06/03/2019 12:00:00 AM EDT active 1 to 2 as directed eCW1 ([facility]) Morphine Sulfate 15 MG Extended Release Oral Tablet Mo rphine Sulfate ER 15 MG Morphine Sulfate ER 15 MG 06/03/2019 12:00:00 AM EDT active 1 to 2 as directed eCW1 ([facility]ly [facility]) 40 mg 06/03/2019 12:00:00 AM EDT tablet [...] MOUTH EVERY DAY SOLD: 08/13/2019 [facility] 50 mg 06/03/2019 12:00:00 AM EDT tablet 90 TAKE ONE TABLET BY MOUTH EVERY DAY TAKE ONE TABLET BY MOUTH EVERY DAY SOLD: 06/05/2019 [facility] Morphine Sulfate 15 MG Extended Release Oral Tablet Mo rphine Sulfate ER 15 MG Morphine Sulfate ER 15 MG 06/03/2019 12:00:00 AM EDT active 1 to 2 as directed eCW1 ([facility]ly [facility]) 350 mg 05/31/2019 12:00:00 AM EDT tablet [...] TIMES A DAY SOLD: 06/03/2019 [facility] 100,000 unit/gram 05/21/2019 12:00:00 AM EDT cream 30 APPLY TO RASH ON GROIN TWO TIMES A DAY APPLY TO RASH ON GROIN TWO TIMES A DAY SOLD: 06/13/2019 [facility] 10-325 mg 05/20/2019 12:00:00 AM [...] EDT active 1 tablet as needed eCW1 ([facility]) Acetaminophen 325 MG / Oxycodone Hydroch loride 10 MG Oral Tablet [Percocet] Percocet 10-325 MG Percocet 10-325 MG 05/18/2019 12:00:00 AM EDT active 1 tablet as needed eCW1 ([facility]) Acetaminophen 325 MG / Oxycodone Hydroch loride 10 MG Oral Tablet [Percocet] Percocet 10-325 MG Percocet 10-325 MG 05/18/2019 12:00:00 AM EDT active 1 tablet as needed eCW1 ([facility]) 800 mg 05/16/2019 12:00:00 AM EDT tablet [...] 1 to 2 as directed eCW1 ([facility]) Morphine Sulfate 15 MG Extended Release Oral Tablet Mo rphine Sulfate ER 15 MG Morphine Sulfate ER 15 MG 05/04/2019 12:00:00 AM EDT active 1 to 2 as directed eCW1 ([facility]) Morphine Sulfate 15 MG Extended Release Oral Tablet Mo rphine Sulfate ER 15 MG Morphine Sulfate ER 15 MG 05/04/2019 12:00:00 AM EDT active 1 to 2 as directed eCW1 ([facility]) 100,000 unit/gram 04/30/2019 12:00:00 AM EDT cream 30 APPLY TO RASH ON GROIN TWO TIMES A DAY APPLY TO RASH ON GROIN TWO TIMES A DAY SOLD: 05/13/2019 [facility] 100,000 unit/gram 04/30/2019 12:00:00 AM EDT cream 30 APPLY TO RASH ON GROIN TWO TIMES A DAY APPLY TO RASH ON GROIN TWO TIMES A DAY SOLD: 05/12/2019 [facility] Acetaminophen 325 MG / Oxycodone Hydroch loride 10 MG Oral Tablet [Percocet] Percocet 10-325 MG Percocet 10-325 MG 04/21/2019 12:00:00 AM EDT active 1 tablet as needed eCW1 ([facility]) 10-325 mg 04/21/2019 12:00:00 AM EDT tablet 120 TAKE ONE TABLET BY MOUTH EVERY 6 HOURS NEEDED MAXIMUM DAILY DOSE = 4 TABLETS TAKE ONE TABLET BY MOUTH EVERY 6 HOURS NEEDED MAXIMUM DAILY DOSE = 4 TABLETS SOLD: 04/21/2019 [facility] 100,000 unit/gram 04/15/2019 12:00:00 AM EST cream 30 APPLY TO RASH ON GROIN TWO TIMES A DAY APPLY TO RASH ON GROIN TWO TIMES A DAY SOLD: 04/26/2019 [facility] 100,000 unit/gram 04/15/2019 12:00:00 AM EST cream 30 APPLY TO RASH ON GROIN TWO TIMES A DAY APPLY TO RASH ON GROIN TWO TIMES A DAY SOLD: 04/16/2019 [facility] 5 mg 04/14/2019 12:00:00 AM EST tablet 60 TAKE ONE TABLET BY MOUTH EVERY 12 HOURS NEEDED FOR ANXIETY. MAXIMUM DAILY DOSE = 2 TABLETS TAKE ONE TABLET BY MOUTH EVERY 12 HOURS NEEDED FOR ANXIETY. MAXIMUM DAILY DOSE = 2 TABLETS SOLD: 04/14/2019 [facility] 15 mg 04/08/2019 12:00:00 AM EST tablet extended release 90 TAKE 1 TABLET BY MOUTH IN THE MORNING AND 2 AT BEDTIME DIRECTED MAXIMUM DAILY DOSE = 3 TABLETS TAKE 1 TABLET BY MOUTH IN THE MORNING AN D 2 AT BEDTIME DIRECTED MAXIMUM DAILY DOSE = 3 TABLETS SOLD: 04/08/2019 [facility] Morphine Sulfate 15 MG Extended Release Oral Tablet Mo rphine Sulfate ER 15 MG Morphine Sulfate ER 15 MG 04/08/2019 12:00:00 AM EST active 1 to 2 as directed eCW1 ([facility]) Morphine Sulfate 15 MG Extended Release Oral Tablet Mo rphine Sulfate ER 15 MG Morphine Sulfate ER 15 MG 04/08/2019 12:00:00 AM EST active 1 to 2 as directed eCW1 ([facility]) Amitriptyline Hydrochloride 25 MG Oral Tablet AMITRIPTYLINE [...] 10 days, Max Daily Dose: 20 mg [facility] 20 mg 03/27/2019 12:00:00 AM EST tablet 360 TAKE ONE TABLET BY MOUTH EVERY 6 HOURS WITH FOOD OR MILK TAKE ONE TABLET BY MOUTH EVERY 6 HOURS W ITH FOOD OR MILK SOLD: 03/28/2019 [facility] 20 mg 03/27/2019 12:00:00 AM EST tablet [...] TIMES A DAY SOLD: 03/28/2019 [facility] 100,000 unit/gram 03/27/2019 12:00:00 AM EST cream 30 APPLY TO RASH ON GROIN TWICE A DAY APPLY TO RASH ON GROIN TWICE A DAY SOLD: 03/27/2019 [facility] 300 mg 03/27/2019 12:00:00 AM EST capsule 270 TAKE ONE CAPSULE BY MOUTH THREE TIMES A DAY TAKE ONE CAPSULE BY MOUTH THREE TIMES A DAY SOLD: 06/30/2019 [facility] atorvastatin 40 MG Oral Tablet Atorvastatin Calcium 40 MG Atorvastatin Calcium 40 MG 03/26/2019 12:00:00 AM EST active 1 tablet eCW1 ([facility]) atorvastatin 40 MG Oral Tablet Atorvastatin Calcium 40 MG Atorvastatin Calcium 40 MG 03/26/2019 12:00:00 AM EST 1.0 {tablet} activ e Atorvastatin Calcium 40 MG eCW1 ([facility]ly [facility]) atorvastatin 40 MG Oral Tablet Atorvastatin Calcium 40 MG Atorvastatin Calcium 40 MG 03/26/2019 12:00:00 AM EST active 1 tablet eCW1 ([facility]) atorvastatin 40 MG Oral Tablet Atorvastatin Calcium 40 MG Atorvastatin Calcium 40 MG 03/26/2019 12:00:00 AM EST 1.0 {tablet} activ e Atorvastatin Calcium 40 MG eCW1 ([facility]) atorvastatin 40 MG Oral Tablet Atorvastatin Calcium 40 MG Atorvastatin Calcium 40 MG 03/26/2019 12:00:00 AM EST 1.0 {tablet} activ e Atorvastatin Calcium 40 MG eCW1 ([facility]) atorvastatin 40 MG Oral Tablet Atorvastatin Calcium 40 MG Atorvastatin Calcium 40 MG 03/26/2019 12:00:00 AM EST 1.0 {tablet} activ e Atorvastatin Calcium 40 MG eCW1 ([facility]) atorvastatin 40 MG Oral Tablet Atorvastatin Calcium 40 MG Atorvastatin Calcium 40 MG 03/26/2019 12:00:00 AM EST 1.0 {tablet} activ e Atorvastatin Calcium 40 MG eCW1 ([facility]) atorvastatin 40 MG Oral Tablet Atorvastatin Calcium 40 MG Atorvastatin Calcium 40 MG 03/26/2019 12:00:00 AM EST 1.0 {tablet} activ e Atorvastatin Calcium 40 MG eCW1 ([facility]) atorvastatin 40 MG Oral Tablet Atorvastatin Calcium 40 MG Atorvastatin Calcium 40 MG 03/26/2019 12:00:00 AM EST 1.0 {tablet} activ e Atorvastatin Calcium 40 MG eCW1 ([facility]) atorvastatin 40 MG Oral Tablet Atorvastatin Calcium 40 MG Atorvastatin Calcium 40 MG 03/26/2019 12:00:00 AM EST 1.0 {tablet} activ e Atorvastatin Calcium 40 MG eCW1 ([facility]) atorvastatin 40 MG Oral Tablet Atorvastatin Calcium 40 MG Atorvastatin Calcium 40 MG 03/26/2019 12:00:00 AM EST 1.0 {tablet} activ e Atorvastatin Calcium 40 MG eCW1 ([facility]) atorvastatin 40 MG Oral Tablet Atorvastatin Calcium 40 MG Atorvastatin Calcium 40 MG 03/26/2019 12:00:00 AM EST 1.0 {tablet} activ e Atorvastatin Calcium 40 MG eCW1 ([facility]) atorvastatin 40 MG Oral Tablet Atorvastatin Calcium 40 MG Atorvastatin Calcium 40 MG 03/26/2019 12:00:00 AM EST 1.0 {tablet} activ e Atorvastatin Calcium 40 MG eCW1 ([facility]) atorvastatin 40 MG Oral Tablet Atorvastatin Calcium 40 MG Atorvastatin Calcium 40 MG 03/26/2019 12:00:00 AM EST 1.0 {tablet} activ e Atorvastatin Calcium 40 MG eCW1 ([facility]) atorvastatin 40 MG Oral Tablet Atorvastatin Calcium 40 MG Atorvastatin Calcium 40 MG 03/26/2019 12:00:00 AM EST 1.0 {tablet} activ e Atorvastatin Calcium 40 MG eCW1 ([facility]) atorvastatin 40 MG Oral Tablet Atorvastatin Calcium 40 MG Atorvastatin Calcium 40 MG 03/26/2019 12:00:00 AM EST 1.0 {tablet} activ e Atorvastatin Calcium 40 MG eCW1 ([facility]) atorvastatin 40 MG Oral Tablet Atorvastatin Calcium 40 MG Atorvastatin Calcium 40 MG 03/26/2019 12:00:00 AM EST 1.0 {tablet} activ e Atorvastatin Calcium 40 MG eCW1 ([facility]) atorvastatin 40 MG Oral Tablet Atorvastatin Calcium 40 MG Atorvastatin Calcium 40 MG 03/26/2019 12:00:00 AM EST 1.0 {tablet} activ e Atorvastatin Calcium 40 MG eCW1 ([facility]) atorvastatin 40 MG Oral Tablet Atorvastatin Calcium 40 MG Atorvastatin Calcium 40 MG 03/26/2019 12:00:00 AM EST 1.0 {tablet} activ e Atorvastatin Calcium 40 MG eCW1 (Formerly [facility]) atorvastatin 40 MG Oral Tablet Atorvastatin Calcium 40 MG Atorvastatin Calcium 40 MG 03/26/2019 12:00:00 AM EST 1.0 {tablet} activ e Atorvastatin Calcium 40 MG eCW1 (Formerly [facility]) atorvastatin 40 MG Oral Tablet Atorvastatin Calcium 40 MG Atorvastatin Calcium 40 MG 03/26/2019 12:00:00 AM EST 1.0 {tablet} activ e Atorvastatin Calcium 40 MG eCW1 (Formerly [facility]) atorvastatin 40 MG Oral Tablet Atorvastatin Calcium 40 MG Atorvastatin Calcium 40 MG 03/26/2019 12:00:00 AM EST 1.0 {tablet} activ e Atorvastatin Calcium 40 MG eCW1 (Formerly [facility]) Ergocalciferol 84229 UNT Oral Capsule Vi tamin D (Ergocalciferol) 1.25 MG (97748 UT) Oral Capsule (ERGOCALCIFEROL) Vitamin D (Ergocalciferol) 1.25 MG (5000 0 UT) Oral Capsule (ERGOCALCIFEROL) 03/26/2019 12:00:00 AM EST active [facility] Losartan Potassium 50 MG Oral Tablet [place] Potassium 50 MG Oral Tablet (COZAAR) Losartan Potassium 50 MG Oral Tablet (COZAAR) 03/26/19 12:00:00 AM EST active [facility] atorvastatin 40 MG Oral Tablet Atorvastatin Calcium 40 MG Oral Tablet (LIPITOR) Atorvastatin Calcium 40 MG Oral Tablet (LIPITOR) 03/26/2019 12:00:00 AM EST active [facility] atorvastatin 40 MG Oral Tablet Atorvastatin Calcium 40 MG Atorvastatin Calcium 40 MG 03/26/2019 12:00:00 AM EST active 1 tablet eCW1 (Formerly [facility]) atorvastatin 40 MG Oral Tablet Atorvastatin Calcium 40 MG Atorvastatin Calcium 40 MG 03/26/2019 12:00:00 AM EST 1.0 {tablet} activ e Atorvastatin Calcium 40 MG eCW1 (Formerly [facility]) Nystatin 387139 UNT/ML Topical Cream Nystatin 421606 U NIT/GM Nystatin [id number] UNIT/GM 03/26/2019 12:00:00 AM EST active 1 application 2g eCW1 (Formerly [facility]) atorvastatin 40 MG Oral Tablet Atorvastatin Calcium 40 MG Atorvastatin Calcium 40 MG 03/26/2019 12:00:00 AM EST 1.0 {tablet} activ e Atorvastatin Calcium 40 MG eCW1 (Formerly [facility]) atorvastatin 40 MG Oral Tablet Atorvastatin Calcium 40 MG Atorvastatin Calcium 40 MG 03/26/2019 12:00:00 AM EST 1.0 {tablet} activ e Atorvastatin Calcium 40 MG eCW1 (Formerly [facility]) atorvastatin 40 MG Oral Tablet Atorvastatin Calcium 40 MG Atorvastatin Calcium 40 MG 03/26/2019 12:00:00 AM EST active 1 tablet eCW1 (Formerly [facility]) atorvastatin 40 MG Oral Tablet Atorvastatin Calcium 40 MG Atorvastatin Calcium 40 MG 03/26/2019 12:00:00 AM EST 1.0 {tablet} activ e Atorvastatin Calcium 40 MG eCW1 (Formerly [facility]) atorvastatin 40 MG Oral Tablet Atorvastatin Calcium 40 MG Atorvastatin Calcium 40 MG 03/26/2019 12:00:00 AM EST 1.0 {tablet} activ e Atorvastatin Calcium 40 MG eCW1 (Formerly [facility]) atorvastatin 40 MG Oral Tablet Atorvastatin Calcium 40 MG Atorvastatin Calcium 40 MG 03/26/2019 12:00:00 AM EST 1.0 {tablet} activ e Atorvastatin Calcium 40 MG eCW1 (Formerly [facility]) atorvastatin 40 MG Oral Tablet Atorvastatin Calcium 40 MG Atorvastatin Calcium 40 MG 03/26/2019 12:00:00 AM EST 1.0 {tablet} activ e Atorvastatin Calcium 40 MG eCW1 (Formerly [facility]) atorvastatin 40 MG Oral Tablet Atorvastatin Calcium 40 MG Atorvastatin Calcium 40 MG 03/26/2019 12:00:00 AM EST 1.0 {tablet} activ e Atorvastatin Calcium 40 MG eCW1 (Formerly [facility]) Nystatin 836099 UNT/ML Topical Cream Nystatin 353369 U NIT/GM Nystatin [id number] UNIT/GM 03/26/2019 12:00:00 AM EST active 1 application 2g eCW1 (Formerly [facility]) atorvastatin 40 MG Oral Tablet Atorvastatin Calcium 40 MG Atorvastatin Calcium 40 MG 03/26/2019 12:00:00 AM EST 1.0 {tablet} activ e Atorvastatin Calcium 40 MG eCW1 (Formerly [facility]) atorvastatin 40 MG Oral Tablet Atorvastatin Calcium 40 MG Atorvastatin Calcium 40 MG 03/26/2019 12:00:00 AM EST active 1 tablet eCW1 ([facility]ly [facility]) atorvastatin 40 MG Oral Tablet Atorvastatin Calcium 40 MG Atorvastatin Calcium 40 MG 03/26/2019 12:00:00 AM EST 1.0 {tablet} activ e Atorvastatin Calcium 40 MG eCW1 (Formerly [facility]) atorvastatin 40 MG Oral Tablet Atorvastatin Calcium 40 MG Atorvastatin Calcium 40 MG 03/26/2019 12:00:00 AM EST 1.0 {tablet} activ e Atorvastatin Calcium 40 MG eCW1 (Formerly [facility]) atorvastatin 40 MG Oral Tablet Atorvastatin Calcium 40 MG Atorvastatin Calcium 40 MG 03/26/2019 12:00:00 AM EST 1.0 {tablet} activ e Atorvastatin Calcium 40 MG eCW1 (Formerly [facility]) atorvastatin 40 MG Oral Tablet Atorvastatin Calcium 40 MG Atorvastatin Calcium 40 MG 03/26/2019 12:00:00 AM EST 1.0 {tablet} activ e Atorvastatin Calcium 40 MG eCW1 (Formerly [facility]) atorvastatin 40 MG Oral Tablet Atorvastatin Calcium 40 MG Atorvastatin Calcium 40 MG 03/26/2019 12:00:00 AM EST 1.0 {tablet} activ e Atorvastatin Calcium 40 MG eCW1 (Formerly [facility]) atorvastatin 40 MG Oral Tablet Atorvastatin Calcium 40 MG Atorvastatin Calcium 40 MG 03/26/2019 12:00:00 AM EST 1.0 {tablet} activ e Atorvastatin Calcium 40 MG eCW1 ([facility]ly [facility]) atorvastatin 40 MG Oral Tablet Atorvastatin Calcium 40 MG Atorvastatin Calcium 40 MG 03/26/2019 12:00:00 AM EST 1.0 {tablet} activ e Atorvastatin Calcium 40 MG eCW1 (Formerly [facility]) atorvastatin 40 MG Oral Tablet Atorvastatin Calcium 40 MG Atorvastatin Calcium 40 MG 03/26/2019 12:00:00 AM EST 1.0 {tablet} activ e Atorvastatin Calcium 40 MG eCW1 (Formerly [facility]) Nystatin 447469 UNT/ML Topical Cream Nystatin 090175 U NIT/GM Nystatin [id number] UNIT/GM 03/26/2019 12:00:00 AM EST active 1 application 2g eCW1 ([facility]ly [facility]) atorvastatin 40 MG Oral Tablet Atorvastatin Calcium 40 MG Atorvastatin Calcium 40 MG 03/26/2019 12:00:00 AM EST 1.0 {tablet} activ e Atorvastatin Calcium 40 MG eCW1 ([facility]ly [facility]) atorvastatin 40 MG Oral Tablet Atorvastatin Calcium 40 MG Atorvastatin Calcium 40 MG 03/26/2019 12:00:00 AM EST 1.0 {tablet} activ e Atorvastatin Calcium 40 MG eCW1 ([facility]ly [facility]) atorvastatin 40 MG Oral Tablet Atorvastatin Calcium 40 MG Atorvastatin Calcium 40 MG 03/26/2019 12:00:00 AM EST 1.0 {tablet} activ e Atorvastatin Calcium 40 MG eCW1 (Formerly [facility]) atorvastatin 40 MG Oral Tablet Atorvastatin Calcium 40 MG Atorvastatin Calcium 40 MG 03/26/2019 12:00:00 AM EST 1.0 {tablet} activ e Atorvastatin Calcium 40 MG eCW1 ([facility]ly [facility]) atorvastatin 40 MG Oral Tablet Atorvastatin Calcium 40 MG Atorvastatin Calcium 40 MG 03/26/2019 12:00:00 AM EST 1.0 {tablet} activ e Atorvastatin Calcium 40 MG eCW1 (Formerly [facility]) Nystatin 897586 UNT/ML Topical Cream Nystatin 604694 U NIT/GM Nystatin 667147 UNIT/GM 03/26/2019 12:00:00 AM EST active 1 application 2g eCW1 (Formerly [facility]) atorvastatin 40 MG Oral Tablet Atorvastatin Calcium 40 MG Atorvastatin Calcium 40 MG 03/26/2019 12:00:00 AM EST 1.0 {tablet} activ e Atorvastatin Calcium 40 MG eCW1 (Former[facility]) atorvastatin 40 MG Oral Tablet Atorvastatin Calcium 40 MG Atorvastatin Calcium 40 MG 03/26/2019 12:00:00 AM EST active 1 tablet eCW1 ([facility]) atorvastatin 40 MG Oral Tablet Atorvastatin Calcium 40 MG Atorvastatin Calcium 40 MG 03/26/2019 12:00:00 AM EST 1.0 {tablet} activ e Atorvastatin Calcium 40 MG eCW1 (Former[facility]) atorvastatin 40 MG Oral Tablet Atorvastatin Calcium 40 MG Atorvastatin Calcium 40 MG 03/26/2019 12:00:00 AM EST 1.0 {tablet} activ e Atorvastatin Calcium 40 MG eCW1 (Former[facility]) atorvastatin 40 MG Oral Tablet Atorvastatin Calcium 40 MG Atorvastatin Calcium 40 MG 03/26/2019 12:00:00 AM EST 1.0 {tablet} activ e Atorvastatin Calcium 40 MG eCW1 (Former[facility]) atorvastatin 40 MG Oral Tablet Atorvastatin Calcium 40 MG Atorvastatin Calcium 40 MG 03/26/2019 12:00:00 AM EST 1.0 {tablet} activ e Atorvastatin Calcium 40 MG eCW1 (Former[facility]) atorvastatin 40 MG Oral Tablet Atorvastatin Calcium 40 MG Atorvastatin Calcium 40 MG 03/26/2019 12:00:00 AM EST 1.0 {tablet} activ e Atorvastatin Calcium 40 MG eCW1 (Former[facility]) atorvastatin 40 MG Oral Tablet Atorvastatin Calcium 40 MG Atorvastatin Calcium 40 MG 03/26/2019 12:00:00 AM EST 1.0 {tablet} activ e Atorvastatin Calcium 40 MG eCW1 (Formerly [facility]) atorvastatin 40 MG Oral Tablet Atorvastatin Calcium 40 MG Atorvastatin Calcium 40 MG 03/26/2019 12:00:00 AM EST 1.0 {tablet} activ e Atorvastatin Calcium 40 MG eCW1 (Former[facility]) atorvastatin 40 MG Oral Tablet Atorvastatin Calcium 40 MG Atorvastatin Calcium 40 MG 03/26/2019 12:00:00 AM EST 1.0 {tablet} activ e Atorvastatin Calcium 40 MG eCW1 (Former[facility]) atorvastatin 40 MG Oral Tablet Atorvastatin Calcium 40 MG Atorvastatin Calcium 40 MG 03/26/2019 12:00:00 AM EST active 1 tablet eCW1 ([facility]) atorvastatin 40 MG Oral Tablet Atorvastatin Calcium 40 MG Atorvastatin Calcium 40 MG 03/26/2019 12:00:00 AM EST 1.0 {tablet} activ e Atorvastatin Calcium 40 MG eCW1 (Former[facility]) atorvastatin 40 MG Oral Tablet Atorvastatin Calcium 40 MG Atorvastatin Calcium 40 MG 03/26/2019 12:00:00 AM EST 1.0 {tablet} activ e Atorvastatin Calcium 40 MG eCW1 (Former[facility]) atorvastatin 40 MG Oral Tablet Atorvastatin Calcium 40 MG Atorvastatin Calcium 40 MG 03/26/2019 12:00:00 AM EST 1.0 {tablet} activ e Atorvastatin Calcium 40 MG eCW1 ([facility]) atorvastatin 40 MG Oral Tablet Atorvastatin Calcium 40 MG Atorvastatin Calcium 40 MG 03/26/2019 12:00:00 AM EST 1.0 {tablet} activ e Atorvastatin Calcium 40 MG eCW1 (Former[facility]) atorvastatin 40 MG Oral Tablet Atorvastatin Calcium 40 MG Atorvastatin Calcium 40 MG 03/26/2019 12:00:00 AM EST 1.0 {tablet} activ e Atorvastatin Calcium 40 MG eCW1 (Former[facility]) atorvastatin 40 MG Oral Tablet Atorvastatin Calcium 40 MG Atorvastatin Calcium 40 MG 03/26/2019 12:00:00 AM EST 1.0 {tablet} activ e Atorvastatin Calcium 40 MG eCW1 (Formerly [facility]) 10-325 mg 03/26/2019 12:00:00 AM EST tablet 120 TAKE 1 TABLET BY MOUTH EVERY 6 HOURS NEEDED MAXIMUM DAILY DOSE = 4 TABLETS TAKE 1 TABLET BY MOUTH EVERY 6 HOURS NEEDED MAXIMUM DAILY DOSE = 4 TABLETS SOLD: 03/26/2019 [facility] 1,250 mcg (50,000 unit) 03/26/2019 12:00:00 AM EST capsule 4 TAKE 1 CAPSULE BY MOUTH ONCE A WEEK ON MONDAYS TAKE 1 CAPSULE BY MOUTH ONCE A WEEK ON MONDAYS SOLD: 03/27/2019 [facility] atorvastatin 40 MG Oral Tablet Atorvastatin Calcium 40 MG Atorvastatin Calcium 40 MG 03/26/2019 12:00:00 AM EST 1.0 {tablet} activ e Atorvastatin Calcium 40 MG eCW1 ([facility]) atorvastatin 40 MG Oral Tablet Atorvastatin Calcium 40 MG Atorvastatin Calcium 40 MG 03/26/2019 12:00:00 AM EST 1.0 {tablet} activ e Atorvastatin Calcium 40 MG eCW1 ([facility]) atorvastatin 40 MG Oral Tablet Atorvastatin Calcium 40 MG Atorvastatin Calcium 40 MG 03/26/2019 12:00:00 AM EST 1.0 {tablet} activ e Atorvastatin Calcium 40 MG eCW1 ([facility]) atorvastatin 40 MG Oral Tablet Atorvastatin Calcium 40 MG Atorvastatin Calcium 40 MG 03/26/2019 12:00:00 AM EST 1.0 {tablet} activ e Atorvastatin Calcium 40 MG eCW1 (Former[facility]) atorvastatin 40 MG Oral Tablet Atorvastatin Calcium 40 MG Atorvastatin Calcium 40 MG 03/26/2019 12:00:00 AM EST 1.0 {tablet} activ e Atorvastatin Calcium 40 MG eCW1 (Former[facility]) atorvastatin 40 MG Oral Tablet Atorvastatin Calcium 40 MG Atorvastatin Calcium 40 MG 03/26/2019 12:00:00 AM EST active 1 tablet eCW1 ([facility]) atorvastatin 40 MG Oral Tablet Atorvastatin Calcium 40 MG Atorvastatin Calcium 40 MG 03/26/2019 12:00:00 AM EST 1.0 {tablet} activ e Atorvastatin Calcium 40 MG eCW1 (Former[facility]) atorvastatin 40 MG Oral Tablet Atorvastatin Calcium 40 MG Atorvastatin Calcium 40 MG 03/26/2019 12:00:00 AM EST 1.0 {tablet} activ e Atorvastatin Calcium 40 MG eCW1 (Former[facility]) atorvastatin 40 MG Oral Tablet Atorvastatin Calcium 40 MG Atorvastatin Calcium 40 MG 03/26/2019 12:00:00 AM EST 1.0 {tablet} activ e Atorvastatin Calcium 40 MG eCW1 (Former[facility]) atorvastatin 40 MG Oral Tablet Atorvastatin Calcium 40 MG Atorvastatin Calcium 40 MG 03/26/2019 12:00:00 AM EST 1.0 {tablet} activ e Atorvastatin Calcium 40 MG eCW1 (Former[facility]) atorvastatin 40 MG Oral Tablet Atorvastatin Calcium 40 MG Atorvastatin Calcium 40 MG 03/26/2019 12:00:00 AM EST 1.0 {tablet} activ e Atorvastatin Calcium 40 MG eCW1 (Former[facility]) Nystatin 430754 UNT/ML Topical Cream Nystatin 396091 U NIT/GM Nystatin 460509 UNIT/GM 03/26/2019 12:00:00 AM EST active 1 application 2g eCW1 (Former[facility]) atorvastatin 40 MG Oral Tablet Atorvastatin Calcium 40 MG Atorvastatin Calcium 40 MG 03/26/2019 12:00:00 AM EST 1.0 {tablet} activ e Atorvastatin Calcium 40 MG eCW1 (Former[facility]) atorvastatin 40 MG Oral Tablet Atorvastatin Calcium 40 MG Atorvastatin Calcium 40 MG 03/26/2019 12:00:00 AM EST 1.0 {tablet} activ e Atorvastatin Calcium 40 MG eCW1 (Former[facility]) atorvastatin 40 MG Oral Tablet Atorvastatin Calcium 40 MG Atorvastatin Calcium 40 MG 03/26/2019 12:00:00 AM EST 1.0 {tablet} activ e Atorvastatin Calcium 40 MG eCW1 (Former[facility]) atorvastatin 40 MG Oral Tablet Atorvastatin Calcium 40 MG Atorvastatin Calcium 40 MG 03/26/2019 12:00:00 AM EST 1.0 {tablet} activ e Atorvastatin Calcium 40 MG eCW1 (Former[facility]) atorvastatin 40 MG Oral Tablet Atorvastatin Calcium 40 MG Atorvastatin Calcium 40 MG 03/26/2019 12:00:00 AM EST 1.0 {tablet} activ e Atorvastatin Calcium 40 MG eCW1 (Former[facility]) atorvastatin 40 MG Oral Tablet Atorvastatin Calcium 40 MG Atorvastatin Calcium 40 MG 03/26/2019 12:00:00 AM EST 1.0 {tablet} activ e Atorvastatin Calcium 40 MG eCW1 (Former[facility]) atorvastatin 40 MG Oral Tablet Atorvastatin Calcium 40 MG Atorvastatin Calcium 40 MG 03/26/2019 12:00:00 AM EST 1.0 {tablet} activ e Atorvastatin Calcium 40 MG eCW1 (Former[facility]) atorvastatin 40 MG Oral Tablet Atorvastatin Calcium 40 MG Atorvastatin Calcium 40 MG 03/26/2019 12:00:00 AM EST 1.0 {tablet} activ e Atorvastatin Calcium 40 MG eCW1 ([facility]) atorvastatin 40 MG Oral Tablet Atorvastatin Calcium 40 MG Atorvastatin Calcium 40 MG 03/26/2019 12:00:00 AM EST 1.0 {tablet} activ e Atorvastatin Calcium 40 MG eCW1 (Former[facility]) atorvastatin 40 MG Oral Tablet Atorvastatin Calcium 40 MG Atorvastatin Calcium 40 MG 03/26/2019 12:00:00 AM EST 1.0 {tablet} activ e Atorvastatin Calcium 40 MG eCW1 (Former[facility]) atorvastatin 40 MG Oral Tablet Atorvastatin Calcium 40 MG Atorvastatin Calcium 40 MG 03/26/2019 12:00:00 AM EST 1.0 {tablet} activ e Atorvastatin Calcium 40 MG eCW1 (Former[facility]) atorvastatin 40 MG Oral Tablet Atorvastatin Calcium 40 MG Atorvastatin Calcium 40 MG 03/26/2019 12:00:00 AM EST active 1 tablet eCW1 ([facility]) atorvastatin 40 MG Oral Tablet Atorvastatin Calcium 40 MG Atorvastatin Calcium 40 MG 03/26/2019 12:00:00 AM EST 1.0 {tablet} activ e Atorvastatin Calcium 40 MG eCW1 (Former[facility]) atorvastatin 40 MG Oral Tablet Atorvastatin Calcium 40 MG Atorvastatin Calcium 40 MG 03/26/2019 12:00:00 AM EST 1.0 {tablet} activ e Atorvastatin Calcium 40 MG eCW1 (Former[facility]) atorvastatin 40 MG Oral Tablet Atorvastatin Calcium 40 MG Atorvastatin Calcium 40 MG 03/26/2019 12:00:00 AM EST 1.0 {tablet} activ e Atorvastatin Calcium 40 MG eCW1 (Former[facility]) atorvastatin 40 MG Oral Tablet Atorvastatin Calcium 40 MG Atorvastatin Calcium 40 MG 03/26/2019 12:00:00 AM EST 1.0 {tablet} activ e Atorvastatin Calcium 40 MG eCW1 (Former[facility]) atorvastatin 40 MG Oral Tablet Atorvastatin Calcium 40 MG Atorvastatin Calcium 40 MG 03/26/2019 12:00:00 AM EST 1.0 {tablet} activ e Atorvastatin Calcium 40 MG eCW1 (Former[facility]) atorvastatin 40 MG Oral Tablet Atorvastatin Calcium 40 MG Atorvastatin Calcium 40 MG 03/26/2019 12:00:00 AM EST 1.0 {tablet} activ e Atorvastatin Calcium 40 MG eCW1 (Formerly [facility]) atorvastatin 40 MG Oral Tablet Atorvastatin Calcium 40 MG Atorvastatin Calcium 40 MG 03/26/2019 12:00:00 AM EST 1.0 {tablet} activ e Atorvastatin Calcium 40 MG eCW1 (Formerly [facility]) atorvastatin 40 MG Oral Tablet Atorvastatin Calcium 40 MG Atorvastatin Calcium 40 MG 03/26/2019 12:00:00 AM EST 1.0 {tablet} activ e Atorvastatin Calcium 40 MG eCW1 (Former[facility]) atorvastatin 40 MG Oral Tablet Atorvastatin Calcium 40 MG Atorvastatin Calcium 40 MG 03/26/2019 12:00:00 AM EST 1.0 {tablet} activ e Atorvastatin Calcium 40 MG eCW1 (Formerly [facility]) atorvastatin 40 MG Oral Tablet Atorvastatin Calcium 40 MG Atorvastatin Calcium 40 MG 03/26/2019 12:00:00 AM EST 1.0 {tablet} activ e Atorvastatin Calcium 40 MG eCW1 (Formerly [facility]) atorvastatin 40 MG Oral Tablet Atorvastatin Calcium 40 MG Atorvastatin Calcium 40 MG 03/26/2019 12:00:00 AM EST 1.0 {tablet} activ e Atorvastatin Calcium 40 MG eCW1 (Formerly [facility]) atorvastatin 40 MG Oral Tablet Atorvastatin Calcium 40 MG Atorvastatin Calcium 40 MG 03/26/2019 12:00:00 AM EST 1.0 {tablet} activ e Atorvastatin Calcium 40 MG eCW1 (Formerly [facility]) atorvastatin 40 MG Oral Tablet Atorvastatin Calcium 40 MG Atorvastatin Calcium 40 MG 03/26/2019 12:00:00 AM EST 1.0 {tablet} activ e Atorvastatin Calcium 40 MG eCW1 (Formerly [facility]) Nystatin 894284 UNT/ML Topical Cream Nystatin 029611 U NIT/GM Nystatin 039658 UNIT/GM 03/26/2019 12:00:00 AM EST active 1 application eCW1 (Formerly [facility]) atorvastatin 40 MG Oral Tablet Atorvastatin Calcium 40 MG Atorvastatin Calcium 40 MG 03/26/2019 12:00:00 AM EST 1.0 {tablet} activ e Atorvastatin Calcium 40 MG eCW1 (Former[facility]) atorvastatin 40 MG Oral Tablet Atorvastatin Calcium 40 MG Atorvastatin Calcium 40 MG 03/26/2019 12:00:00 AM EST 1.0 {tablet} activ e Atorvastatin Calcium 40 MG eCW1 (Former[facility]) atorvastatin 40 MG Oral Tablet Atorvastatin Calcium 40 MG Atorvastatin Calcium 40 MG 03/26/2019 12:00:00 AM EST active 1 tablet eCW1 ([facility]) atorvastatin 40 MG Oral Tablet Atorvastatin Calcium 40 MG Atorvastatin Calcium 40 MG 03/26/2019 12:00:00 AM EST 1.0 {tablet} activ e Atorvastatin Calcium 40 MG eCW1 (Formerly [facility]) Acetaminophen 325 MG / Oxycodone Hydroch loride 10 MG Oral Tablet [Percocet] Percocet 10-325 MG Percocet 10-325 MG 03/25/2019 12:00:00 AM EST active 1 tablet as needed eCW1 ([facility]) Morphine Sulfate 15 MG Extended Release Oral Tablet Mo rphine Sulfate ER 15 MG Morphine Sulfate ER 15 MG 03/10/2019 12:00:00 AM EST active 1 to 2 as directed eCW1 (Formerly [facility]) Morphine Sulfate 15 MG Extended Release Oral Tablet Mo rphine Sulfate ER 15 MG Morphine Sulfate ER 15 MG 03/10/2019 12:00:00 AM EST active 1 to 2 as directed eCW1 (Formerly [facility]) Morphine Sulfate 15 MG Extended Release Oral Tablet Mo rphine Sulfate ER 15 MG Morphine Sulfate ER 15 MG 03/10/2019 12:00:00 AM EST active 1 to 2 as directed eCW1 (Formerly [facility]) 15 mg 03/10/2019 12:00:00 AM EST tablet extended release 90 TAKE 1 TABLET BY MOUTH IN THE MORNING AND 2 AT BEDTIME MAXIMUM DAILY DOSE = 3 TAKE 1 TABLET BY MOUTH IN THE MORNING AND 2 AT BEDTIME MAXIMUM DAILY DOSE = 3 SOLD: 03/13/2019 [facility] Morphine Sulfate 15 MG Extended Release Oral Tablet Mo rphine Sulfate ER 15 MG Morphine Sulfate ER 15 MG 03/10/2019 12:00:00 AM EST active 1 to 2 as directed eCW1 (Formerly [facility]) Morphine Sulfate 15 MG Extended Release Oral Tablet Mo rphine Sulfate ER 15 MG Morphine Sulfate ER 15 MG 03/10/2019 12:00:00 AM EST active 1 to 2 as directed eCW1 (Formerly [facility]) 5 mg 03/05/2019 12:00:00 AM EST tablet 60 TAKE ONE TABLET BY MOUTH EVERY 12 HOURS NEEDED FOR ANXIETY MAXIMUM DAILY DOSE = 2 TABLETS TAKE ONE TABLET BY MOUTH EVERY 12 HOURS NEEDED FOR ANXIETY MAXIMUM DAILY DOSE = 2 TABLETS SOLD: 03/05/2019 [facility] Diazepam 5 MG Oral Tablet diazePAM 5 MG Oral Tablet (V ALIUM) diazePAM 5 MG Oral Tablet (VALIUM) 03/05/2019 12:00:00 AM EST 5 mg Oral ac tive Take 1 tablet by mouth every 12 (twelve) hours as needed for Anxiety, Max Daily Dose: 10 mg [facility] 300 mg 02/24/2019 12:00:00 AM [...] EST active 1 tablet as needed eCW1 ([facility]) Acetaminophen 325 MG / Oxycodone Hydroch loride 10 MG Oral Tablet [Percocet] Percocet 10-325 MG Percocet 10-325 MG 02/17/2019 12:00:00 AM EST active 1 tablet as needed eCW1 ([facility]) Acetaminophen 325 MG / Oxycodone Hydroch loride 10 MG Oral Tablet [Percocet] Percocet 10-325 MG Percocet 10-325 MG 02/17/2019 12:00:00 AM EST active 1 tablet as needed eCW1 ([facility]) Acetaminophen 325 MG / Oxycodone Hydroch loride 10 MG Oral Tablet [Percocet] Percocet 10-325 MG Percocet 10-325 MG 02/17/2019 12:00:00 AM EST active 1 tablet as needed eCW1 ([facility]) Acetaminophen 325 MG / Oxycodone Hydroch loride 10 MG Oral Tablet [Percocet] Percocet 10-325 MG Percocet 10-325 MG 02/17/2019 12:00:00 AM EST active 1 tablet as needed eCW1 ([facility]) Acetaminophen 325 MG / Oxycodone Hydroch loride 10 MG Oral Tablet [Percocet] Percocet 10-325 MG Percocet 10-325 MG 02/17/2019 12:00:00 AM EST active 1 tablet as needed eCW1 ([facility]) Acetaminophen 325 MG / Oxycodone Hydroch loride 10 MG Oral Tablet [Percocet] Percocet 10-325 MG Percocet 10-325 MG 02/17/2019 12:00:00 AM EST active 1 tablet as needed eCW1 ([facility]) Percocet 10-325 MG UNK 02/17/2019 12:00:00 AM EST active 1 tablet as needed eCW1 ([facility]ly [facility]) Amitriptyline Hydrochloride 25 MG Oral Tablet AMITRIPTYLINE [...] 1 to 2 as directed eCW1 (Formerly [facility]) Morphine Sulfate 15 MG Extended Release Oral Tablet Mo rphine Sulfate ER 15 MG Morphine Sulfate ER 15 MG 02/12/2019 12:00:00 AM EST active 1 to 2 as directed eCW1 (Formerly [facility]) Morphine Sulfate ER 15 MG UNK 02/12/2019 12:00:00 AM EST active 1 to 2 as directed eCW1 (Formerly [facility]) 5 mg 02/03/2019 12:00:00 AM EST tablet 60 TAKE ONE TABLET BY MOUTH EVERY 12 HOURS NEEDED FOR ANXIETY MAXIMUM DAILY DOSE = 2 TAKE ONE TABLET BY MOUTH EVERY 12 HOURS NEEDED FOR ANXIETY MAXIMUM DAILY DOSE = 2 SOLD: 02/03/2019 [facility] 10-325 mg 01/24/2019 12:00:00 AM EST tablet 120 TAKE ONE TABLET BY MOUTH EVERY 6 HOURS NEEDED MAXIMUM DAILY DOSE = 4 TAKE ONE TABLET BY MOUTH EVERY 6 HOURS NEEDED MAXIMUM DAILY DOSE = 4 SOLD: 01/24/2019 [facility] Acetaminophen 325 MG / Oxycodone Hydroch loride 10 MG Oral Tablet [Percocet] Percocet 10-325 MG Percocet 10-325 MG 01/19/2019 12:00:00 AM EST active 1 tablet as needed eCW1 ([facility]) Morphine Sulfate 15 MG Extended Release Oral Tablet Mo rphine Sulfate ER 15 MG Morphine Sulfate ER 15 MG 01/15/2019 12:00:00 AM EST active 1 to 2 as directed eCW1 ([facility]ly [facility]) 15 mg 01/15/2019 12:00:00 AM EST tablet extended release 90 TAKE 1 TABLET BY MOUTH IN THE MORNING AND 2 AT BEDTIME MAXIMUM DAILY DOSE = 3 TAKE 1 TABLET BY MOUTH IN THE MORNING AND 2 AT BEDTIME MAXIMUM DAILY DOSE = 3 SOLD: 01/15/2019 [facility] Morphine Sulfate 15 MG Extended Release Oral Tablet Mo rphine Sulfate ER 15 MG Morphine Sulfate ER 15 MG 01/15/2019 12:00:00 AM EST active 1 to 2 as directed eCW1 (Formerly [facility]) duloxetine 30 MG Delayed Release Oral Ca psule DULoxetine HCl 30 MG Oral Capsule Delayed Release Particles (CYMBALTA) DULoxetine HCl 30 MG Oral Capsule [place] d Release Particles (CYMBALTA) 12/30/2018 12:00:00 AM EST [facility] Carisoprodol 350 MG Oral Tablet CARISOPRODOL [...] = 3 TABLETS SOLD: 05/02/2019 [facility] Carisoprodol 350 MG Oral Tablet CARISOPRODOL 12/05/2018 12:00:00 AM EDT tablet 90 TAKE ONE TABLET BY MOUTH EVERY 8 HOURS, MAXIMUM DAILY DOSE = 3 TABLETS TAKE ONE TABLET BY MOUTH EVERY 8 HOURS, MAXIMUM DAILY DOSE = 3 TABLETS SOLD: 02/03/2019 [facility] 350 mg 12/05/2018 12:00:00 AM EDT tablet 90 TAKE ONE TABLET BY MOUTH EVERY 8 HOURS, MAXIMUM DAILY DOSE = 3 TABLETS TAKE ONE TABLET BY MOUTH EVERY 8 HOURS, MAXIMUM DAILY DOSE = 3 TABLETS SOLD: 04/04/2019 [facility] 300 mg 11/22/2018 12:00:00 AM [...] OR MILK SOLD: 02/07/2019 [facility] Losartan Potassium 25 MG Oral Tablet losartan (COZAAR) 25 MG tablet losartan (COZAAR) 25 MG tablet 05/14/2018 12:00:00 AM EDT 25 mg Oral aborted Take 25 mg by mouth daily [facility] Propranolol Hydrochloride 20 MG Oral Tablet propranolo l (INDERAL) 20 MG tablet propranolol (INDERAL) 20 MG tablet 01/13/2018 12:00:00 AM EST aborted TAKE ONE TABLET BY MOUTH EVERY DAY ON EM PTY STOMACH [facility] Oxycodone Hydrochloride 5 MG Oral Tablet oxyCODONE (ROXICODONE) 5 MG immediate release tablet oxyCODONE (ROXICODONE) 5 MG immediate release tablet 0 06/25/2017 12:00:00 AM EDT aborted Take 1 PO q4h prn pain, MDD = 6 [facility] Insurance Providers Payer name Policy type / Coverage type Policy ID Covered republican ID Covered republican's relationship to daly Policy Daly Plan Information MEDICARE [id number] SP [id number] MEDICARE [id number] SP [id number] EXCELLUS BC-BS PPO 306 [id number] SP [id number] MEDICARE C [id number] S [id number] X28 [place]/307 [id number] SP [id number] [place]/307 [id number] SP [id number] EXCELLUS BC-BS PPO 306 [id number] SP [id number] EXCELLUS BCBS B [id number] S [id number] [id number] TRAVELERS WC W [id number] Empl [id number] BCBS [facility] 220/720 [id number] SP [id number] BCBS [employer] [id number] SP [id number] [place]/307 [id number] SP [id number] [place]/307 [id number] SP [id number] EXCELLUS H [id number] Self [id number] EXCELLUS BC-BS PPO 306 [id number] SP [id number] 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 [id number] SP [id number] TRAVELERS- WCB# [id number] SP WCB # [id number] [place]BS [place] 302/307 [id number] SP [id number] 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 [id number] SP [id number] EXCELLUS BCBS B [id number] S [id number] [id number] 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 WCB# [id number] WCB# [id number] 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 [id number] SP [id number] TRAVELERS-WC WCB# [id number] SP WCB # [id number] 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 [id number] SP [id number] 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 [id number] SP [id number] OTHER WORKERS COMPENSATI O [id number] S [id number] TRAVELERS WC W [id number] Empl [id number] ANSI-Commercial -o452-88l9-a1s4-[id number] aonlc940-c998-36u7-w0b1-k8481h48i808 ANSI-Not a Secondary Insurance zusk6363-2p72-7at6-nvc0-aoqr8 [id number] uasp1177-8r90-3ow7-evv3-zmvy3rq56v58 ANSI-Not a Secondary Insurance 51583l01-qw23-5832-rc0o-y710t a80xae6 28103w93-hr95-3275-ek3w-q872lq34cng6 ANSI-Commercial 5639wxz1-e98p-9504-x4y3-1561i4ls3092 3579nlq1-f92h-3971-k3q8-2103n4ui4846 ANSI-Not a Secondary Insurance 76l4w39d-7l9z-26y1-y2qk-k944o i5k1v3m 81x2x32f-8c2b-02g6-b5cd-v227po6l6s5u ANSI-Commercial o7iksf41-6750-29r1-t260-22187682bjlh q0fjbk23-3182-95a3-t936-28540497jccn ANSI-Commercial 6q34o65u-8m3o-6b0d-5w90-8a50415m0p16 7b51h70m-5p7m-5v7f-1h29-7o09462n3g69 ANSI-Not a Secondary Insurance p3y11f46-3ty2-0e63-8154-i4714 p7f5xe4 y1f39q10-5bt4-6d59-5056-e3271z2k1nu8 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 [facility]# [id number] SP B# [id number] ANSI-Commercial 6468x1o8-7n17-7082-hidu-y96oy7t1436f 9154d4u5-6b35-0249-jlxx-m12dm1h4323n ANSI-Not a Secondary Insurance 9ri85wr6-03z2-137m-z9b8-m19qz 4h21bpc 5wn69pd5-06r1-619c-p1w2-b43kb5h79vvq ANSI-Commercial z247qt33-5ho1-915v-pf23-419m47z02lqw g639ud29-7gy5-172n-fv26-922v34g05pwk ANSI-Not a Secondary Insurance x480m500-912i-452b-9987-03j99 7gq7zo6 e003p493-407k-120g-5543-67z038hu8gf8 ANSI-Not a Secondary Insurance 87v72z2p-d896-07o0-y138-99686 8dce0h9 13s65m9m-k175-24j7-i497-266688kpc4u9 ANSI-Commercial 00943129-26m4-24x5-c076-7z440r25806e 60517278-01r7-54h3-k337-8r406u99495v ANSI-Commercial t88vxcp0-9y8g-7rr3-w305-858poob8t42s b16tfpq6-0p2q-4kk6-m114-144ftor9s22m ANSI-Not a Secondary Insurance lc91h8m2-9y94-4090-5200-a862r 41o9vm9 qf23d9e9-2h87-1289-4904-c808c48m3ez6 ANSI-Commercial 04g77df9-3o47-5yuu-9843-w4sywb26le82 80g74ez2-4e19-2roz-2410-i0ztfn52ud87 ANSI-Not a Secondary Insurance 8r49y820-42g8-60iz-vi54-gg5e3 0888c7d 9w20m701-72d8-94wu-zx93-fo2k00917p4u ANSI-Commercial 2y533z75-r87v-39d3-5jb6-63dc1t12551g 9r139u31-g77i-72b9-1mg2-05qo0w70154x ANSI-Not a Secondary Insurance 04d2brm6-90u1-899a-u525-1z2b1 plq6f9c 72i6zde7-88m2-913s-c351-8d6w6stq2n3o ANSI-Not a Secondary Insurance 983yd387-s079-197h-x95q-3u92l redr1s3 168ls371-e557-447z-b73c-3l51zcvkz3f7 ANSI-Commercial 2k7237aq-aej4-2344-tj79-e3s7y2hx9614 5m7569lm-uup2-2595-ke33-j7f5q7ui0114 EXCELLUS -BS PPO 306 [id number] SP [id number] ANSI-Not a Secondary Insurance 175051sw-ppy8-239y-gj32-nyv91 62u209d 046598wl-pop0-938k-gj53-xcs9406d139k ANSI-Commercial 133dru02-dea3-2bc5-2ekh-35o1z0260ugm 834grq70-mou8-7hs6-0qcs-40j7h7338qec ANSI-Not a Secondary Insurance h67g66q6-2s70-19s3-0ud7-r13b4 q0wk6b8 x71u02y1-9a75-19j9-1hs6-l31n6g5am0w6 ANSI-Commercial 91463jpj-3875-8zg0-8cz2-6cw3z6317n34 44183syg-0702-6rh1-0kk9-9ok9z8916f95 ANSI-Commercial 6j39e1e1-515w-4038-x1p4-v11n63e46a1e 2i74z3o9-712k-5239-q5c0-e47u25q01z6r ANSI-Not a Secondary Insurance ua1c0o4a-8620-2c6l-62v5-4iahf 17j5870 wu6q9w0c-0501-6m0r-72f1-3tfen72l2818 ANSI-Commercial v8f80f12-n6j6-393b-ew0g-96pc038478p2 r7g09d30-u2q8-566o-vg6q-50fo382835t8 ANSI-Not a Secondary Insurance 07v1lba9-wh27-2249-e550-73k2a 9md29r9 40p1vze8-bj21-0079-n151-00t1w6ar89l6 ANSI-Not a Secondary Insurance a9624076-q272-44w8-5iu3-rp0x5 k46d649 v5915309-d244-12i5-9xp0-xh7t2w15r964 ANSI-Commercial 8jx5l9b4-482o-3e01-f6ch-53l6a1861i35 9ky1n0s5-092s-2w68-a1xk-14i9y4203f09 ANSI-Not a Secondary Insurance 7lakt93m-v1s6-448y-d1f6-bsg4o 722d8fo 6dsvc25r-w6y4-692w-w6a1-evd1d036h2jy ANSI-Commercial 21pt7pat-08j2-1664-9783-p88lku0do356 68vr4yui-09f9-0937-4842-s04mar7ki534 ANSI-Not a Secondary Insurance m06t28xy-z71r-7isj-5u57-j2765 t8h2jl1 g79b85nz-n35t-7xra-4d57-n2117q7s6gn3 ANSI-Commercial 5o78a3ic-5h51-4148-q464-6k7041z4dv81 9v86r1lq-4k87-8524-v833-5w6603p2vm61 ANSI-Commercial x01zy929-3g5b-598c-m9i8-2u426g982o43 x79qp037-3l4t-035w-l1w6-1l289q960v71 ANSI-Not a Secondary Insurance 9edwvc1k-o068-914v-d2c6-zf27e 8a5w8h9 4vqpls0q-n081-877p-k7j3-gc09h6q2c9s9 ANSI-Not a Secondary Insurance ad7zs705-i4l7-0204-m6i3-80120 ao1m51k pl0ay551-t5n1-3484-z7f9-13016tz0w64b ANSI-Commercial 4941t8k5-11pn-1933-6b8p-54ps356pp9m5 1458l2r4-30fy-4519-8p1l-19yj267ce3q7 ANSI-Commercial 141n4m32-su69-52i6-bq6l-0kn1vruh5tr9 185y0a89-mw97-51u8-ai3f-8ke2whoa2kd5 ANSI-Not a Secondary Insurance 799442m5-a3r2-0gia-b86k-af9p5 8040x7v 597849m7-r8n5-4mwa-c44a-kh7u82035y1e ANSI-Commercial 3s3x7ky4-906p-2f94-7631-540c727z54z1 2k1b4mf0-971b-1v09-9399-392j954s54i1 ANSI-Not a Secondary Insurance y535527d-9l67-3e89-58i2-3ffb4 8q61996 j240389q-4u91-1c40-36f8-4ixd49x31417 ANSI-Not a Secondary Insurance gf4b9adk-4k0t-98pr-h3i9-n84q9 ro243m3 pg4e7dvl-2x8o-62cl-y6i9-z86z7gz779v4 ANSI-Commercial ahznu144-s4b6-85t9-0iss-w50u159h70z6 iaufp217-w7z3-28z9-9orw-r83a540a83v7 ANSI-Commercial 614430b8-47y8-9tx0-6555-192t16oy6o0x 053878h2-60r4-2sk6-6746-411x91ht6f0k ANSI-Not a Secondary Insurance 097e7k4t-1l43-3260-370w-x928k iz0msi3 671i9c3j-7t14-5786-162x-q037oxp8zka5 ANSI-Not a Secondary Insurance 661t414w-10qc-6ehd-2p5r-7e840 o6j91g4 133j798z-17ty-6zso-9a6v-0k302n3e60w8 ANSI-Commercial x3wo9504-51c2-95p8-57n3-2a45210wmz79 h5mm7302-18d1-88j8-91q4-9q51430anm71 ANSI-Commercial c050789p-16lg-7462-8g89-71bl9k6j56ld b199055v-82gp-7940-5u24-91fl0w5p17ml ANSI-Not a Secondary Insurance 1q5a4379-w2t2-6nj7-f94d-8ze46 0dd9f59 3y2m7106-r8e9-6ce7-c62g-6ng702ez9p10 ANSI-Commercial 396w24a6-1yfz-85a2-f21y-1mmd6082k152 641b03s6-8sdi-47d5-v25v-0kll1526s512 ANSI-Not a Secondary Insurance f3x5868s-6pt6-893o-1nf5-97whx 0p15fgc z7g9911v-4tv9-600u-5je6-01ixp8p61dsq ANSI-Commercial 2jss475t-k796-79z0-r250-37i266296441 0jkp482x-l025-61b2-b754-20h690897040 ANSI-Not a Secondary Insurance 4d02ns29-b766-0174-5453-775a0 644u1x5 2h62hk11-t818-8368-7238-917u8742d0p8 ANSI-Commercial 52qg6ja9-4d97-4lw5-4556-4ndo4v8157rk 26uc3cu4-8o41-0wh7-1460-9vcl1t1972tr ANSI-Not a Secondary Insurance 44mh1913-98v6-50gw-c678-w762x o9063e8 73zw4163-41g3-82uq-f044-o177gi2820o8 ANSI-Commercial b0y08776-7rb6-6797-6y47-6zg41315m21s t4t04984-9mc2-3230-5e52-5cg37806i43q ANSI-Not a Secondary Insurance b156q080-sq39-5lrg-972u-7p979 aec9z8u h751u654-bm56-8wzg-954x-5s992bjm9k8j ANSI-Commercial 8ny8ix04-d7c2-87qk-t99n-60r4004fu5pi 7wq3gp78-b1j5-91hm-x71w-23z4798rn4pa ANSI-Not a Secondary Insurance 8p13s2zh-6f42-5b64-90r2-p91v7 0fjgv29 9n49c5ty-9d96-4n88-85r7-g55p68lzle10 ANSI-Not a Secondary Insurance 9bffu5c7-6v24-7my0-ur7w-590q0 006k5p5 7nnwv3u7-6l21-7km4-mw0k-321k8103e2o3 ANSI-Commercial g016x8ex-02w4-809t-4984-n1xl8u9ma4v1 h423k0qd-88r1-410f-7337-t2cs8u9gf6x8 ANSI-Commercial j0k1f709-7990-94p0-24jm-4l41y1hh795c g0l2j048-3047-18x9-24jr-8u07d1sm684s ANSI-Not a Secondary Insurance 3103r759-1054-7h44-9als-g5j65 m5005qs 9641u433-1286-0g54-0wnz-l8y46t8860av ANSI-Commercial 43482244-j897-3336-fo52-all4y9471302 22607317-f415-9428-ig04-xrv4v7279915 ANSI-Not a Secondary Insurance 57y162xa-w877-89rw-m0li-4ov96 1feaaac 55h374nm-m946-53td-x6fo-8gy566ukbhmj ANSI-Not a Secondary Insurance 11s92k43-i3gy-3617-5yo9-3408o 82716b1 60y63k30-l9iq-1379-7jg0-3131n33615u9 ANSI-Commercial 33k4z3g3-886k-5z01-96ku-578cvn7xf943 43p2q8n6-812k-8v60-72rz-370stl5rj218 ANSI-Not a Secondary Insurance 76fy1hlv-ek43-3301-cv6v-0v8q8 3m4e72p 97re6bbv-br12-8459-sa2w-8s8b23o5a12l ANSI-Commercial 2p1p4nq5-88d8-51qu-qv20-792133lb0p8e 1e3p6ww9-54o3-93km-mq33-323826th6h9y ANSI-Commercial sqe33139-tl48-2s27-3802-8t10mgowpg55 abr21701-pb10-3d05-1466-1y41yhtlqj75 ANSI-Not a Secondary Insurance h62s8eg8-4n1i-87i0-t8kq-lzb68 526027n r69h1eu4-7w9t-69x7-r8pk-zcp53325684b ANSI-Not a Secondary Insurance zg7345zk-70j6-0m87-3bnw-47855 3749017 bi7972sw-41d7-2f32-5hje-581586774287 ANSI-Commercial t7z0t438-1p72-1213-w164-7y97v9f122us z3p4m406-9m66-5184-f475-4h70c0a321hb ANSI-Not a Secondary Insurance 2b1uk0x4-3156-2788-903m-145ag i83826n 1r1ir9o7-1006-9525-302d-215dvy90225a ANSI-Commercial 297k878x-4059-0207-789c-40n485qwd6i0 371j958u-7984-5724-795o-07v427kix8f3 ANSI-Not a Secondary Insurance 19567085-b03b-7ji3-el8i-8l76u 9r05yf8 13057276-p30x-2ft3-vm2l-8g16r8g52qv4 ANSI-Commercial t565f442-q9m6-5el0-91e2-1pn58p895jj0 e643y304-d3c7-3jk7-61x2-9aw38t983je6 ANSI-Not a Secondary Insurance j99v9g7b-55w4-476g-n2o8-98560 g73nn8u w57a3m5y-57a7-833m-u9g9-71901n53pt7u ANSI-Commercial 5t2we8m0-u8e5-9378-db60-jk307748t9sm 9l0ui5w3-u5s0-6741-mt43-vk904408s9do ANSI-Commercial 3dcy112j-k8h3-06jg-wt72-g7tzsabi9974 3tpi592k-o2l9-23gk-zb62-e1khsufg6609 ANSI-Not a Secondary Insurance 96437587-x073-2863-ous1-4l41b jt612w5 48582231-g482-1377-vyf8-8f62lgc184l6 ANSI-Not a Secondary Insurance 1268amm2-cyju-78c3-2535-v2ef4 0o743z5 4001bho5-jbhx-22l2-0167-o7ky44o010k0 ANSI-Commercial u4xv79v8-128r-10x4-m8s0-122094111162 x8bb68q3-051s-13u2-i2o9-689225912628 ANSI-Not a Secondary Insurance 3151nls3-6gld-05v3-7z3t-5f1v9 41j0007 4733jbh5-1tzy-80s4-0k7f-3q4i565c9927 ANSI-Commercial hx5tehr7-1twm-42ww-vhjt-883v4by0cm78 sk8wdzc5-7mwg-38aq-enjt-678h8wh0uf44 ANSI-Commercial p83s5750-37x0-518z-24na-29n3vu7c9813 g12j5509-44o8-617e-52ys-22x3yx8u3279 ANSI-Not a Secondary Insurance y57h5k6v-uswo-65ik-0x1w-r9wv9 2o1r377 k28v9a4j-jzar-45wd-4a9o-c3sb29r8w429 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 O [id number] O [id number] ANSI-Not a Secondary Insurance 04bt8482-85q9-5u4e-h1v9-6rua8 x771794 50pr9757-46g3-1h2e-r9d3-1daj1u960344 ANSI-Commercial lsf4c159-jtlb-2r27-105b-469978024kr0 reg3q591-etyi-3m86-899e-216591513it3 ANSI-Not a Secondary Insurance 54d4xk3r-0s70-137k-6za1-8lt2g 6xnm056 14r8qg6u-0u73-480l-0ip0-5qf5n7lcl880 ANSI-Commercial 860ne9f9-q072-0191-707w-25313c3brs16 621yk6j3-d463-1888-475l-38286j1dux33 ANSI-Commercial i645r746-k2ph-34j5-b33p-z1q17017ojk0 p328m636-d7au-28k9-l40j-n9e33007pev7 ANSI-Not a Secondary Insurance cv7o7jl0-f102-3428-3yl3-44b18 51w5jmp ly7r5xj7-u803-9040-9wd3-26n4842g6eyo ANSI-Commercial i087z44w-9056-1i50-h7e7-5ti0vp9951q8 w962c38t-0078-8p31-w7r6-9yu3wn5648x6 ANSI-Not a Secondary Insurance 84z2ix7g-i1b8-605t-5w6k-17zq6 8461255 65a3kp2f-v2e4-701a-1g3b-78iy54116955 ANSI-Commercial 555lu622-5293-5805-mc0m-z13586r6ig13 052yj951-1735-2575-jb8b-r12938e8eo19 ANSI-Not a Secondary Insurance 98703kok-0asq-889x-80w2-0k61a bpl0fi6 80765rcd-0zfz-609p-95p4-6w63qrpw0ln9 ANSI-Commercial 9t66c01l-t41b-0pw0-136n-5n245l9d1214 0k44i56z-o50h-8up2-502q-1x411u3s3715 ANSI-Not a Secondary Insurance 333w8836-3e56-26oj-n5wb-62o58 489ebec 000i7883-3q36-62bz-v0ov-36i37051tbit ANSI-Not a Secondary Insurance 37120571-g0e7-1jg1-ue6n-3h202 e1e561k 09873623-t4q9-7xu3-zd5p-1j505t8r526l ANSI-Commercial 7ywo88uc-1kc0-513t-ff53-889318u1v3nb 7adp12qy-2qq9-336a-si01-217814b4d7bs ANSI-Not a Secondary Insurance 3w12f224-nk14-947j-9c05-69gmd 9q76b2s 2e86i468-ls30-814p-0i57-79oxo0f19v6h ANSI-Commercial bbh4538q-e861-91fu-0mn0-x78wpmtt5h5j sxo4320y-i252-38ng-1jx0-e05ipbsm7j4b ANSI-Commercial 53qc2070-2a4o-5qcg-cm8z-l1l7e6t3i0dq 26yg2402-9z8f-8owc-fl7x-k1d7v8z7r9ud ANSI-Not a Secondary Insurance 3u6vy279-4y4p-600l-4v91-1s6j1 3z18425 1d5fb205-2y0p-505s-7v83-8x5t09l08693 ANSI-Commercial 42jn6a16-1920-6mi1-2x2h-0172r15ez919 78jk6k60-4698-8av6-0f8u-7931d83go351 ANSI-Not a Secondary Insurance n8nh32a3-fah1-8v3y-w794-mb9nd 0mhv6nm t3ek43a5-qur5-5s0j-f812-yn0nc0gyc4ob ANSI-Commercial 7g9y26gc-5cti-947u-me7g-33g7187l8z3a 7w1e11ve-3mzz-090z-ek1n-93i0773t2q0t ANSI-Not a Secondary Insurance 0801310q-433w-9156-3x24-rv7j1 456qu03 4554658e-007x-8740-1p12-ke8n5548zg71 ANSI-Commercial hyg54i07-6b0p-34a9-n352-mjxrapo05z68 zms44w64-2k2q-92f7-x248-zflbkns72w18 ANSI-Not a Secondary Insurance 7q661qex-4m43-5nsq-h024-5u302 441w377 1c370piq-4v03-8uql-f870-5e720684i170 ANSI-Not a Secondary Insurance 1t3ljiwt-4gpu-6t2a-a9t1-c37bb 8491487 4k3lkufl-5pif-9s6c-o9k7-n76xn5988586 ANSI-Commercial 396k7e1r-715x-2z95-j72m-1686957v41t3 101m9k5x-881g-3r61-b08r-8745862l22i0 ANSI-Not a Secondary Insurance 1d9i9n1x-b586-73xi-44a4-9521k 33qlh18 4i2t0c9j-s933-71dl-65x8-1496a17gig95 ANSI-Commercial 1376908z-j62o-5534-9eqh-5460r3ni0a6o 4805235b-p66d-2903-1udt-7887x4dx0s7d ANSI-Commercial ml5b104i-3ez7-0nj3-5l54-v4p88tn624q7 xf3d452n-6ms0-7vz2-9b41-i4m94nf984n5 ANSI-Not a Secondary Insurance 16w11ah6-2e8i-7mg8-9i84-z2h2w njgy576 11t69yc9-4y6x-4sv7-6m89-e3j5mrgwi295 ANSI-Not a Secondary Insurance 2125mt08-18q5-969f-4006-5c45c f36597n 4328ml71-01d1-382b-8070-2w21kk32764j ANSI-Commercial 85h3v8o0-6197-8w83-vf25-yg78q9836532 43r0v1n7-8648-3s46-du92-tn66l4951765 ANSI-Not a Secondary Insurance 873og17j-61hw-3s9n-3p01-2w06p 2i9a6d0 430di26h-66ei-3m3o-2q07-0d72b3h5e1l1 ANSI-Commercial 9y36541p-0873-6127-h414-t8d5wvwu9bn4 7h92747h-8916-8934-h764-x5m9vmit6zv2 [facility] [id number] [facility] [id number] ANSI-Commercial 49lfw78j-0198-7659-0394-6ie2qx9a5978 90zrk90q-4954-8527-7372-9br5ao1l5248 ANSI-Not a Secondary Insurance q4571nyj-4p33-1137-5hx3-w606k 1rdu33d o8672enz-7i82-8028-5lh6-m297y7uzx69b ANSI-Not a Secondary Insurance 85s90782-60n0-7457-60u5-70809 j0jimv6 74x11579-31c7-7235-63k4-32365g1rrnh1 ANSI-Commercial xu24t9sq-874u-11j6-81c7-z22bmsvbv77s qp78o7su-078z-81b3-62p9-u13nliudn52e ANSI-Not a Secondary Insurance jzg4878k-9s74-9582-i2r5-q3887 5s48lca whf1998o-1m53-8728-f1p0-h58758q53lld ANSI-Commercial 675c291e-4j0t-382m-ff7h-89o65cy15lg7 [id number]-6k4k-920x-hy4u-53i19ne30fg9 ANSI-Not a Secondary Insurance o179cscv-ze2j-187u-3b88-46i0i 5uv72c5 h679svgz-hd8u-894s-5g88-62q6q6fh66d2 ANSI-Commercial u76xx3c8-jcke-420p-gsq9-[id number] e89ks6w1-bktb-694t-itm3-k179302687z6 ANSI-Not a Secondary Insurance a112swr5-72wc-41k2-ed7f-37592 9xjlc4g v567voe8-85mw-16r7-kg4y-727321pcbz9a ANSI-Commercial la7ze21w-8wh2-0937-c501-3fbc7490210b tb6js60k-6hh9-8621-z394-0tvu9586308f ANSI-Commercial [id number]-5r44-mz67g601v1j7 274285j8-0s37-67hj-1p48-bw44t578q3e3 ANSI-Not a Secondary Insurance [id number]-5v06-996z-9u8g-48672 7336s0u 607j73qu-3p32-424t-6o0i-395980237a6f ANSI-Not a Secondary Insurance [id number]-h202-05uv-h901-573eo 77b163r [id number]-o985-46ma-r367-631cz56d441n ANSI-Commercial [id number]-un59-[id number] nss17p49-2510-57b6-us63-lfr07j177351 ANSI-Not a Secondary Insurance s38f17bw-a32v-574f-243l-2g985 [id number] e54b99dn-q61i-415z-247p-[id number] ANSI-Commercial weq08lr2-jx95-6553-05uz-920p16x666w1 ing11le3-ls88-8417-80nd-356j64x128k3 ANSI-Commercial rc4t8zfe-w7oz-8213-73s8-pz7c9t060e6q im7x5qmt-z4hg-3238-21u0-oa6s1d187l4s ANSI-Not a Secondary Insurance [id number]-1072-r7q9-272ev 7p4l1h9 [id number]-8900-d5a1-225px6m2j1k2 TRAVELERS- [id number] SP [id number] ANSI-Not a Secondary Insurance [id number]-uf4m-9z84-1974-99a1o [id number] b5j011p2-uz6f-[id number] ANSI-Commercial 2043860i-744v-46jl-xys1-[id number] [id number]-613s-43nz-npx6-lqd63d0r1x59 ANSI-Commercial lui9r607-71q4-6aoe-q0vk-w9x78t4191zn cuj4v274-70r8-9cwb-t4ob-p1b27y3025dy ANSI-Not a Secondary Insurance [id number]-97n5-4613k c114ut9 [id number]-80m0-7481fs640ld5 ANSI-Not a Secondary Insurance [id number]-4517-6q76n 65i347o [id number]-[id number] ANSI-Commercial 5dkhz574-v790-5469-4774-9404089cx275 [id number]-[id number] OTHER WORKERS COMPENSATI O WCB#[id number] S WCB#[id number] ANSI-Not a Secondary Insurance [id number] 0756ebf [id number]-a6i9-3h41-[id number] ANSI-Commercial [id number]-z5t1-2t65-217f-[id number] 33415v73-g6b3-5e67-625c-[id number] ANSI-Commercial [id number]-v2ku-66w1-51ao-xd5x5vlp1233 [id number]-s6cf-42f5-95es-az8f6ykl5395 ANSI-Not a Secondary Insurance [id number]-[id number] [id number]-[id number] OTHER WORKERS COMPENSATI O WCB#[id number] S WCB#[id number] TRAVELERS-WC WCB# [id number] SP WCB # [id number] 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 [id number] [facility] Part B [id number] Self [id number] Travelers Insurance (WC) Workers Compensation [id number] Self [id number] 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 [id number] SP [id number] 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 [id number] SP [id number] [place]/307 [id number] SP [id number] [place]/307 [id number] SP [id number] [place] 302/307 [id number] SP [id number] BS Of [facility] Maintenance Organization ([facility] [place] Self EXCELLUS BCBS B [id number] S VYS [id number] BCBS [place] 304/804 [id number] SP [id number] EXCELLUS H [id number] Self [id number] BLUE CROSS BLUE [employer] [id number] BCBS [place] 304/804 [id number] SP [id number] SELF PAY 5 UNAVAILABLE 1 UNAVAILA BLE BLUE CROSS BLUE SHIELD-O/P [id number] 18 [id number] BCBS [place] 306/8 P [id number] S [id number] Problems, Conditions, and Diagnoses Code Display Name Description Problem Type Effective Dates Data Source(s) F51.01 0182106 Primary insomnia Problem 01/28/2020 12:00:00 AM EST eCW1 ([facility]) F41.0 461755315 Panic disorder Problem 12/24/2019 12:00:00 A M EST eCW1 ([facility]) F41.9 32178153 Anxiety Problem 12/23/2019 12:00:00 AM ES T eCW1 ([facility]) 24664451 Cervical radiculopathy Cervical radiculopathy Problem 08/26/2019 12:00:00 AM EDT [facility] ([facility]) 701645769 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 Problem 08/26/2019 12:00:00 AM EDT [facility] ([facility]) 55809427 Neck pain Neck pain Problem 08/26/2019 12:00:00 AM ED T [facility] ([facility] ) 799163561 Essential tremor Essential tremor Problem 08/26/2019 12 :00:00 AM EDT [facility] ([facility] ) R25.1 122508919 Tremor of both hands Problem 08/25/2019 12:0 0:00 AM EDT eCW1 ([facility]) F41.9 15275318 Anxiety Problem 08/04/2019 12:00:00 AM ED T eCW1 ([facility]) M46.1 [id number] Bilateral sacroiliitis Problem 05/28/2019 12:00:00 AM EDT eCW1 ([facility]) M54.5 142617874 Low back pain Problem 05/28/2019 12:00:00 AM EDT eCW1 ([facility]) M54.5 625964047 Low back pain Problem 05/28/2019 12:00:00 AM EDT eCW1 ([facility]) M46.1 [id number] Bilateral sacroiliitis Problem 05/28/2019 12:00:00 AM EDT eCW1 ([facility]) M46.1 55160655 Sacroiliitis Problem 04/21/2019 12:00:00 AM EDT eCW1 ([facility]) E78.00 182527591 Pure hypercholesterolemia Problem 03/26/2019 12:00:00 AM EST eCW1 ([facility]) J44.9 91556865 Chronic obstructive pulmonary di sease, unspecified COPD type Problem 03/26/2019 12:00:00 AM EST eCW1 ([facility]) E78.00 725648275 Pure hypercholesterolemia Problem 03/26/2019 12:00:00 AM EST eCW1 ([facility]) J44.9 05097136 Chronic obstructive pulmonary di sease, unspecified COPD type Problem 03/26/2019 12:00:00 AM EST eCW1 ([facility]) M75.41 Impingement syndrome of right shoulder I mpingement syndrome of right shoulder Diagnosis 04/01/2019 10:41:11 AM [facility] 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, 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, right upper limb Diagnosis 04/01/2019 10:41:11 AM [facility] Surgeries/Procedures Procedure Description Date Indications Data Source(s) Immunization: Flublok Quadrivalent (18 years & older) 0.5mL IM (Influenza) 01/15/2020 12:00:00 AM EST eCW1 ([facility]) INJ TRIGGER POINT / MUSCL 06/24/2019 12:00:00 AM EDT eCW1 ([facility]) PHYSICIAN TELEPHONE EVALUATION 11-20 MIN 06/12/2019 12 :00:00 AM EDT eCW1 ([facility]ly [facility]) ESTABILISHED PATIENT [facility] F[facility]ILITY CHARGE 020 12:00:00 AM EDT eCW1 ([facility]) SURGERY CASE REQUEST OUTSIDE FACILITY ONLY SURGERY CA SE REQUEST OUTSIDE FACILITY ONLY Routine 04/01/2019 11:37 AM EST Cubital tunnel syndrome on right 04/01/2019 04:37:19 PM EST Cubital tunnel syndrome on right [facility] Cubital tunnel syndrome on right Lumbar/Sacral w/ Imaging 03/25/2019 12:00:00 AM EST eCW1 ([facility]) RADXPS IN END [id number] PXD 03/25/2019 12:00:00 AM ES T eCW1 ([facility]) Results ID Date Data Source [id number] 02/29/2020 05:49:00 PM EST [facility] Name Value Range Interpretation Code Description Data Abbey rce(s) Supporting Document(s) SARS-CoV-2 (COVID 19) NEGATIVE - SARS-CoV-2 (COVID19) [facility] This lab was ordered by [facility] a nd reported by [facility]. ID Date Data Source Comprehensive Metabolic Profile (CMP) 12/18/2019 08:27:18 AM EST eCW1 ([facility]) Name Value Range Interpretation Code Description Data Abbey rce(s) Supporting Document(s) 92 GLUCOSE, FASTING eCW1 ([facility]) 15 BLOOD UREA NITROGEN eCW1 ([facility]) 1.01 CREATININE FOR GFR eCW1 ([facility]) 102 CHLORIDE LEVEL eCW1 ([facility]) 135 SODIUM LEVEL eCW1 ([facility]) 5.2 POTASSIUM SERUM eCW1 ([facility]) > 60.0 GLOMERULAR FILTRATION RATE eCW 1 ([facility]) 28 CARBON DIOXIDE LEVEL eCW1 ([facility]) 14 ALT/SGPT eCW1 ([facility]) 9 AST/SGOT eCW1 ([facility]) 9.5 CALCIUM LEVEL eCW1 ([facility]) 7.5 TOTAL PROTEIN eCW1 ([facility]) 0.3 BILIRUBIN,TOTAL eCW1 ([facility]) 101 ALKALINE PHOSPHATASE eCW1 ([facility]) 4.3 ALBUMIN eCW1 ([facility]) 1.3 ALBUMIN/GLOBULIN RATIO eCW1 ([facility]) ID Date Data Source [id number] 12/06/2019 10:45:00 AM EDT [facility] Name Value Range Interpretation Code Description Data Abbey rce(s) Supporting Document(s) SARS coronavirus 2 RNA [facility] This lab was ordered by [facility] and reported by [facility]. ID Date Data Source [facility] FLUORO GUIDE SPINE INJECTION (PAIN) 11/12/2019 05:47:51 AM EDT eCW1 ([facility]) Name Value Range Interpretation Code Description Data Abbey rce(s) Supporting Document(s) [facility] FLUORO GUIDE SPINE IN JECTION (PAIN) eCW1 ([facility]) ID Date Data Source [id number] 11/07/2019 10:00:00 AM EDT [facility] Name Value Range Interpretation Code Description Data Abbey rce(s) Supporting Document(s) SARS coronavirus 2 RNA [facility] This lab was ordered by [facility] and reported by [facility]. ID Date Data Source [id number] 07/11/2019 11:25:00 AM EDT [facility] Name Value Range Interpretation Code Description Data Abbey rce(s) Supporting Document(s) SARS CORONAVIRUS 2 RNA [facility] This lab was ordered by [facility] and reported by [facility]. ID Date Data Source [id number] 04/04/2019 03:33:54 PM [facility] Name Value Range Interpretation Code Description Data Abbey rce(s) Supporting Document(s) Progress Note [facility] [id number] [file] [id number] Procedure Social History Code Duration Value Status Description Data Source(s ) Smoking 02/16/2020 12:00:00 AM EST Current Smoker completed Curre nt Smoker eCW1 (Formerly [facility]) Smoking 02/16/2020 12:00:00 AM EST Current Smoker completed Curre nt Smoker eCW1 (Formerly [facility]) Smoking 02/16/2020 12:00:00 AM EST Current Smoker completed Curre nt Smoker eCW1 (Formerly [facility]) Smoking 02/16/2020 12:00:00 AM EST Current Smoker completed Curre nt Smoker eCW1 (Formerly [facility]) Smoking 02/16/2020 12:00:00 AM EST Current Smoker completed Curre nt Smoker eCW1 (Formerly [facility]) Smoking 01/28/2020 12:00:00 AM EST Current Smoker completed Curre nt Smoker eCW1 (Formerly [facility]) Smoking 01/28/2020 12:00:00 AM EST Current Smoker completed Curre nt Smoker eCW1 (Formerly [facility]) Smoking 01/28/2020 12:00:00 AM EST Current Smoker completed Curre nt Smoker eCW1 (Formerly [facility]) Smoking 01/28/2020 12:00:00 AM EST Current Smoker completed Curre nt Smoker eCW1 (Formerly [facility]) Smoking 01/28/2020 12:00:00 AM EST Current Smoker completed Curre nt Smoker eCW1 (Formerly [facility]) Smoking 01/28/2020 12:00:00 AM EST Current Smoker completed Curre nt Smoker eCW1 (Formerly [facility]) Smoking 01/15/2020 12:00:00 AM EST Current Smoker completed Curre nt Smoker eCW1 (Formerly [facility]) Smoking 01/15/2020 12:00:00 AM EST Current Smoker completed Curre nt Smoker eCW1 (Formerly [facility]) Smoking 01/15/2020 12:00:00 AM EST Current Smoker completed Curre nt Smoker eCW1 (Formerly [facility]) Smoking 01/15/2020 12:00:00 AM EST Current Smoker completed Curre nt Smoker eCW1 (Formerly [facility]) Smoking 01/15/2020 12:00:00 AM EST Current Smoker completed Curre nt Smoker eCW1 (Formerly [facility]) Smoking 01/15/2020 12:00:00 AM EST Current Smoker completed Curre nt Smoker eCW1 (Formerly [facility]) Smoking 01/15/2020 12:00:00 AM EST Current Smoker completed Curre nt Smoker eCW1 (Formerly [facility]) Smoking 01/15/2020 12:00:00 AM EST Current Smoker completed Curre nt Smoker eCW1 (Formerly [facility]) Smoking 01/15/2020 12:00:00 AM EST Current Smoker completed Curre nt Smoker eCW1 (Formerly [facility]) Smoking 01/15/2020 12:00:00 AM EST Current Smoker completed Curre nt Smoker eCW1 (Formerly [facility]) Smoking 01/15/2020 12:00:00 AM EST Current Smoker completed Curre nt Smoker eCW1 (Formerly [facility]) Smoking 01/15/2020 12:00:00 AM EST Current Smoker completed Curre nt Smoker eCW1 (Formerly [facility]) Smoking 01/15/2020 12:00:00 AM EST Current Smoker completed Curre nt Smoker eCW1 (Formerly [facility]) Smoking 01/15/2020 12:00:00 AM EST Current Smoker completed Curre nt Smoker eCW1 (Formerly [facility]) Smoking 12/24/2019 12:00:00 AM EST Current Smoker completed Curre nt Smoker eCW1 (Formerly [facility]) Smoking 12/24/2019 12:00:00 AM EST Current Smoker completed Curre nt Smoker eCW1 (Formerly [facility]) Smoking 12/24/2019 12:00:00 AM EST Current Smoker completed Curre nt Smoker eCW1 (Formerly [facility]) Smoking 12/24/2019 12:00:00 AM EST Current Smoker completed Curre nt Smoker eCW1 (Formerly [facility]) Smoking 12/24/2019 12:00:00 AM EST Current Smoker completed Curre nt Smoker eCW1 (Formerly [facility]) Smoking 12/24/2019 12:00:00 AM EST Current Smoker completed Curre nt Smoker eCW1 (Formerly [facility]) Smoking 12/24/2019 12:00:00 AM EST Current Smoker completed Curre nt Smoker eCW1 ([facility]ly [facility]) Smoking 12/24/2019 12:00:00 AM EST Current Smoker completed Curre nt Smoker eCW1 (Formerly [facility]) Smoking 12/24/2019 12:00:00 AM EST Current Smoker completed Curre nt Smoker eCW1 ([facility]ly [facility]) Smoking 12/24/2019 12:00:00 AM EST Current Smoker completed Curre nt Smoker eCW1 (Formerly [facility]) Smoking 12/24/2019 12:00:00 AM EST Current Smoker completed Curre nt Smoker eCW1 (Formerly [facility]) Smoking 12/24/2019 12:00:00 AM EST Current Smoker completed Curre nt Smoker eCW1 (Formerly [facility]) Smoking 12/24/2019 12:00:00 AM EST Current Smoker completed Curre nt Smoker eCW1 (Formerly [facility]) Smoking 12/24/2019 12:00:00 AM EST Current Smoker completed Curre nt Smoker eCW1 (Formerly [facility]) Smoking 12/24/2019 12:00:00 AM EST Current Smoker completed Curre nt Smoker eCW1 (Formerly [facility]) Smoking 12/24/2019 12:00:00 AM EST Current Smoker completed Curre nt Smoker eCW1 (Formerly [facility]) Smoking 12/24/2019 12:00:00 AM EST Current Smoker completed Curre nt Smoker eCW1 (Formerly [facility]) Smoking 12/24/2019 12:00:00 AM EST Current Smoker completed Curre nt Smoker eCW1 (Formerly [facility]) Smoking 12/24/2019 12:00:00 AM EST Current Smoker completed Curre nt Smoker eCW1 (Formerly [facility]) Smoking 12/24/2019 12:00:00 AM EST Current Smoker completed Curre nt Smoker eCW1 (Formerly [facility]) Smoking 12/24/2019 12:00:00 AM EST Current Smoker completed Curre nt Smoker eCW1 (Formerly [facility]) Smoking 12/24/2019 12:00:00 AM EST Current Smoker completed Curre nt Smoker eCW1 (Formerly [facility]) Smoking 12/24/2019 12:00:00 AM EST Current Smoker completed Curre nt Smoker eCW1 (Formerly [facility]) Smoking 12/24/2019 12:00:00 AM EST Current Smoker completed Curre nt Smoker eCW1 (Formerly [facility]) Smoking 12/24/2019 12:00:00 AM EST Current Smoker completed Curre nt Smoker eCW1 (Formerly [facility]) Smoking 12/22/2019 12:00:00 AM EST Current Smoker completed Curre nt Smoker eCW1 (Formerly [facility]) Smoking 12/22/2019 12:00:00 AM EST Current Smoker completed Curre nt Smoker eCW1 (Formerly [facility]) Smoking 12/22/2019 12:00:00 AM EST Current Smoker completed Curre nt Smoker eCW1 (Formerly [facility]) Smoking 12/18/2019 12:00:00 AM EST Current Smoker completed Curre nt Smoker eCW1 (Formerly [facility]) Smoking 12/18/2019 12:00:00 AM EST Current Smoker completed Curre nt Smoker eCW1 (Formerly [facility]) Smoking 12/18/2019 12:00:00 AM EST Current Smoker completed Curre nt Smoker eCW1 (Formerly [facility]) Smoking 12/18/2019 12:00:00 AM EST Current Smoker completed Curre nt Smoker eCW1 (Formerly [facility]) Smoking 12/18/2019 12:00:00 AM EST Current Smoker completed Curre nt Smoker eCW1 (Formerly [facility]) Smoking 12/18/2019 12:00:00 AM EST Current Smoker completed Curre nt Smoker eCW1 (Formerly [facility]) Smoking 12/11/2019 12:00:00 AM EDT Current Smoker completed Curre nt Smoker eCW1 (Formerly [facility]) Smoking 12/11/2019 12:00:00 AM EDT Current Smoker completed Curre nt Smoker eCW1 (Formerly [facility]) Smoking 12/11/2019 12:00:00 AM EDT Current Smoker completed Curre nt Smoker eCW1 (Formerly [facility]) Smoking 12/11/2019 12:00:00 AM EDT Current Smoker completed Curre nt Smoker eCW1 (Formerly [facility]) Smoking 12/09/2019 12:00:00 AM EDT Current Smoker completed Curre nt Smoker eCW1 (Formerly [facility]) Smoking 11/30/2019 12:00:00 AM EDT Current Smoker completed Curre nt Smoker eCW1 (Formerly [facility]) Smoking 11/30/2019 12:00:00 AM EDT Current Smoker completed Curre nt Smoker eCW1 (Formerly [facility]) Smoking 11/30/2019 12:00:00 AM EDT Current Smoker completed Curre nt Smoker eCW1 (Formerly [facility]) Smoking 11/30/2019 12:00:00 AM EDT Current Smoker completed Curre nt Smoker eCW1 (Formerly [facility]) Smoking 11/30/2019 12:00:00 AM EDT Current Smoker completed Curre nt Smoker eCW1 (Formerly [facility]) Smoking 11/30/2019 12:00:00 AM EDT Current Smoker completed Curre nt Smoker eCW1 (Formerly [facility]) Smoking 11/24/2019 12:00:00 AM EDT Current Smoker completed Curre nt Smoker eCW1 (Formerly [facility]) Smoking 11/12/2019 12:00:00 AM EDT Current Smoker completed Curre nt Smoker eCW1 (Formerly [facility]) Smoking 11/12/2019 12:00:00 AM EDT Current Smoker completed Curre nt Smoker eCW1 (Formerly [facility]) Smoking 09/04/2019 12:00:00 AM EDT Current Smoker completed Curre nt Smoker eCW1 (Formerly [facility]) Smoking 09/04/2019 12:00:00 AM EDT Current Smoker completed Curre nt Smoker eCW1 (Formerly [facility]) Smoking 09/04/2019 12:00:00 AM EDT Current Smoker completed Curre nt Smoker eCW1 (Formerly [facility]) Smoking 09/04/2019 12:00:00 AM EDT Current Smoker completed Curre nt Smoker eCW1 (Formerly [facility]) Smoking 09/04/2019 12:00:00 AM EDT Current Smoker completed Curre nt Smoker eCW1 (Formerly [facility]) Smoking 09/04/2019 12:00:00 AM EDT Current Smoker completed Curre nt Smoker eCW1 (Formerly [facility]) Smoking 09/04/2019 12:00:00 AM EDT Current Smoker completed Curre nt Smoker eCW1 (Formerly [facility]) Smoking 08/31/2019 12:00:00 AM EDT Current Smoker completed Curre nt Smoker eCW1 (Formerly [facility]) Smoking 08/31/2019 12:00:00 AM EDT Current Smoker completed Curre nt Smoker eCW1 (Formerly [facility]) Smoking 08/31/2019 12:00:00 AM EDT Current Smoker completed Curre nt Smoker eCW1 (Formerly [facility]) Smoking 08/25/2019 12:00:00 AM EDT Current Smoker completed Curre nt Smoker eCW1 (Formerly [facility]) Smoking 08/25/2019 12:00:00 AM EDT Current Smoker completed Curre nt Smoker eCW1 (Formerly [facility]) Smoking 08/25/2019 12:00:00 AM EDT Current Smoker completed Curre nt Smoker eCW1 (Formerly [facility]) Smoking 08/25/2019 12:00:00 AM EDT Current Smoker completed Curre nt Smoker eCW1 (Formerly [facility]) Smoking 08/25/2019 12:00:00 AM EDT Current Smoker completed Curre nt Smoker eCW1 (Formerly [facility]) Smoking 08/04/2019 12:00:00 AM EDT Current Smoker completed Curre nt Smoker eCW1 (Formerly [facility]) Smoking 07/13/2019 12:00:00 AM EDT Current Smoker completed Curre nt Smoker eCW1 (Formerly [facility]) Smoking 07/13/2019 12:00:00 AM EDT Current Smoker completed Curre nt Smoker eCW1 (Formerly [facility]) Smoking 07/13/2019 12:00:00 AM EDT Current Smoker completed Curre nt Smoker eCW1 (Formerly [facility]) Smoking 07/13/2019 12:00:00 AM EDT Current Smoker completed Curre nt Smoker eCW1 (Formerly [facility]) Alcohol intake 04/04/2019 12:00:00 AM EST Current non-d alma of alcohol (finding) completed Current non-drinker of alcohol (finding) [facility] Cigarette pack-years 04/04/2019 12:00:00 AM EST UNK completed [facility] Cigarettes smoked current (pack per day) - Reported 04/04/19 12:00:00 AM EST UNK completed [facility] Smoking 04/04/2019 12:00:00 AM EST Current every day smoker co mpleted Current every day smoker [facility] Vital Signs ID Date Data Source UNK Name Value Range Interpretation Code Description Data Source(s) Diastolic blood pressure 84 mm[Hg] 84 mm[Hg] eCW1 (Formerly [facility]) Systolic blood pressure 130 mm[Hg] 130 mm[Hg] e CW1 (Formerly [facility]) Body temperature 97.5 [degF] 97.5 [degF] eCW1 ( [facility]) Respiratory rate 18 /min 18 /min eCW1 ([facility]) Heart rate 102 /min 102 /min eCW1 ([facility]) Body mass index (BMI) [Ratio] 23.03 kg/m2 23.03 kg/m2 eCW1 (Formerly [facility]) Body height 69 [in_i] 69 [in_i] eCW1 ([facility]) Body weight 156 [lb_av] 156 [lb_av] eCW1 ([facility]) Diastolic blood pressure 78 mm[Hg] 78 mm[Hg] eCW1 (Formerly [facility]) Systolic blood pressure 132 mm[Hg] 132 mm[Hg] e CW1 ([facility]ly [facility]) Body temperature 98.0 [degF] 98.0 [degF] eCW1 ( [facility]) Respiratory rate 18 /min 18 /min eCW1 ([facility]) Heart rate 99 /min 99 /min eCW1 ([facility]) Body mass index (BMI) [Ratio] 23.33 kg/m2 23.33 kg/m2 eCW1 ([facility]) Body height 69 [in_i] 69 [in_i] eCW1 ([facility]) Body weight 158 [lb_av] 158 [lb_av] eCW1 ([facility]) Diastolic blood pressure 90 mm[Hg] 90 mm[Hg] eCW1 ([facility]) Systolic blood pressure 140 mm[Hg] 140 mm[Hg] e CW1 ([facility]) Body temperature [degF] eCW1 ([facility]) Respiratory rate 18 /min 18 /min eCW1 ([facility]) Heart rate 112 /min 112 /min eCW1 ([facility]) Body mass index (BMI) [Ratio] 23.18 kg/m2 23.18 kg/m2 eCW1 ([facility]) Body height 69 [in_i] 69 [in_i] eCW1 ([facility]) Body weight 157 [lb_av] 157 [lb_av] eCW1 ([facility]) Diastolic blood pressure 80 mm[Hg] 80 mm[Hg] eCW1 ([facility]) Systolic blood pressure 130 mm[Hg] 130 mm[Hg] e CW1 ([facility]) Body temperature 98.2 [degF] 98.2 [degF] eCW1 ( [facility]) Respiratory rate 18 /min 18 /min eCW1 ([facility]) Heart rate 104 /min 104 /min eCW1 ([facility]) Body mass index (BMI) [Ratio] 23.45 kg/m2 23.45 kg/m2 eCW1 ([facility]) Body height 69 [in_i] 69 [in_i] eCW1 ([facility]) Body weight 158.8 [lb_av] 158.8 [lb_av] eCW1 ([facility]) Diastolic blood pressure 100 mm[Hg] 100 mm[Hg] eCW1 ([facility]) Systolic blood pressure 150 mm[Hg] 150 mm[Hg] e CW1 ([facility]) Body temperature 98.2 [degF] 98.2 [degF] eCW1 ( [facility]) Respiratory rate 18 /min 18 /min eCW1 ([facility]) Heart rate 92 /min 92 /min eCW1 ([facility]) Body mass index (BMI) [Ratio] 23.74 kg/m2 23.74 kg/m2 W1 ([facility]) Body height 69 [in_i] 69 [in_i] eCW1 ([facility]) Body weight 160.8 [lb_av] 160.8 [lb_av] eCW1 ([facility]) Diastolic blood pressure 98 mm[Hg] 98 mm[Hg] eCW1 ([facility]) Systolic blood pressure 146 mm[Hg] 146 mm[Hg] e CW1 ([facility]) Body temperature 97.6 [degF] 97.6 [degF] eCW1 ( [facility]) Respiratory rate 18 /min 18 /min eCW1 ([facility]) Heart rate 75 /min 75 /min eCW1 ([facility]) Body mass index (BMI) [Ratio] 23.86 kg/m2 23.86 kg/m2 eCW1 ([facility]) Body height 69 [in_i] 69 [in_i] eCW1 ([facility]) Body weight 161.6 [lb_av] 161.6 [lb_av] eCW1 ([facility]) Diastolic blood pressure 93 mm[Hg] 93 mm[Hg] eCW1 ([facility]) Systolic blood pressure 136 mm[Hg] 136 mm[Hg] e CW1 ([facility]) Body temperature 98.6 [degF] 98.6 [degF] eCW1 ( [facility]) Respiratory rate 16 /min 16 /min eCW1 ([facility]) Heart rate 69 /min 69 /min eCW1 ([facility]) Body mass index (BMI) [Ratio] 23.63 kg/m2 23.63 kg/m2 eCW1 ([facility]) Body height 69 [in_i] 69 [in_i] eCW1 ([facility]) Body weight 160 [lb_av] 160 [lb_av] eCW1 ([facility]) Diastolic blood pressure 96 mm[Hg] 96 mm[Hg] eCW1 ([facility]) Systolic blood pressure 148 mm[Hg] 148 mm[Hg] e CW1 ([facility]) Body temperature 98.3 [degF] 98.3 [degF] eCW1 ( [facility]) Respiratory rate 18 /min 18 /min eCW1 ([facility]) Heart rate 73 /min 73 /min eCW1 ([facility]) Body mass index (BMI) [Ratio] 23.42 kg/m2 23.42 kg/m2 eCW1 ([facility]) Body height 69 [in_i] 69 [in_i] eCW1 ([facility]) Body weight 158.6 [lb_av] 158.6 [lb_av] eCW1 ([facility]) Diastolic blood pressure 80 mm[Hg] 80 mm[Hg] eCW1 ([facility]) Systolic blood pressure 120 mm[Hg] 120 mm[Hg] e CW1 ([facility]) Body temperature 97.8 [degF] 97.8 [degF] eCW1 ( [facility]) Respiratory rate 18 /min 18 /min eCW1 ([facility]) Heart rate 103 /min 103 /min eCW1 ([facility]) Body mass index (BMI) [Ratio] 24.19 kg/m2 24.19 kg/m2 eCW1 ([facility]) Body height 69 [in_i] 69 [in_i] eCW1 ([facility]) Body weight 163.8 [lb_av] 163.8 [lb_av] eCW1 ([facility]) Diastolic blood pressure 84 mm[Hg] 84 mm[Hg] eCW1 ([facility]) Systolic blood pressure 198 mm[Hg] 198 mm[Hg] e CW1 ([facility]) Body temperature 97.0 [degF] 97.0 [degF] eCW1 ( [facility]) Respiratory rate 18 /min 18 /min eCW1 ([facility]) Heart rate 89 /min 89 /min eCW1 ([facility]) Body mass index (BMI) [Ratio] 24.25 kg/m2 24.25 kg/m2 eCW1 ([facility]) Body height 69 [in_i] 69 [in_i] eCW1 ([facility]) Body weight 164.2 [lb_av] 164.2 [lb_av] eCW1 ([facility]) Body mass index (BMI) [Ratio] 24.9 kg/m2 24.9 k g/m2 MEDENT ([facility], ) Body weight 164.00 [lb_av] 164.00 [lb_av] MEDEN T ([facility], ) Body height 68 [in_i] 68 [in_i] MEDENT ([facility], ) 5'8" Respiratory rate 14 /min 14 /min MEDENT ( [facility], ) Heart rate 78 /min 78 /min MEDENT ([facility] ) Diastolic blood pressure 80 mm[Hg] 80 mm[Hg] MEDENT ([facility]) Systolic blood pressure 120 mm[Hg] 120 mm[Hg] M EDENT ([facility]) Diastolic blood pressure 82 mm[Hg] 82 mm[Hg] eCW1 ([facility]) Systolic blood pressure 120 mm[Hg] 120 mm[Hg] e CW1 ([facility]) Body temperature 98 [degF] 98 [degF] eCW1 ([facility]) Respiratory rate 18 /min 18 /min eCW1 ([facility]) Heart rate 125 /min 125 /min eCW1 ([facility]) Body mass index (BMI) [Ratio] 24.19 kg/m2 24.19 kg/m2 eCW1 ([facility]) Body height 69 [in_i] 69 [in_i] eCW1 ([facility]) Body weight 163.8 [lb_av] 163.8 [lb_av] eCW1 ([facility]) Diastolic blood pressure 78 mm[Hg] 78 mm[Hg] eCW1 ([facility]) Systolic blood pressure 130 mm[Hg] 130 mm[Hg] e CW1 ([facility]) Body temperature 98.5 [degF] 98.5 [degF] eCW1 ( [facility]) Respiratory rate 18 /min 18 /min eCW1 ([facility]) Heart rate 102 /min 102 /min eCW1 ([facility]) Body mass index (BMI) [Ratio] 24.57 kg/m2 24.57 kg/m2 eCW1 ([facility]) Body height 69 [in_i] 69 [in_i] eCW1 ([facility]) Body weight 166.4 [lb_av] 166.4 [lb_av] eCW1 ([facility]) Diastolic blood pressure 70 mm[Hg] 70 mm[Hg] eCW1 ([facility]) Systolic blood pressure 110 mm[Hg] 110 mm[Hg] e CW1 ([facility]) Body temperature 97.3 [degF] 97.3 [degF] eCW1 ( [facility]) Respiratory rate 18 /min 18 /min eCW1 ([facility]) Heart rate 107 /min 107 /min eCW1 ([facility]) Body mass index (BMI) [Ratio] 24.22 kg/m2 24.22 kg/m2 eCW1 ([facility]) Body height 69 [in_i] 69 [in_i] eCW1 ([facility]) Body weight 164 [lb_av] 164 [lb_av] eCW1 ([facility]) Diastolic blood pressure 85 mm[Hg] 85 mm[Hg] eCW1 ([facility]) Systolic blood pressure 112 mm[Hg] 112 mm[Hg] e CW1 ([facility]) Body temperature 98.3 [degF] 98.3 [degF] eCW1 ( [facility]) Respiratory rate 18 /min 18 /min eCW1 ([facility]) Heart rate 107 /min 107 /min eCW1 ([facility]) Body mass index (BMI) [Ratio] 23.95 kg/m2 23.95 kg/m2 eCW1 ([facility]) Body height 69 [in_i] 69 [in_i] eCW1 ([facility]) Body weight 162.2 [lb_av] 162.2 [lb_av] eCW1 ([facility]) Diastolic blood pressure 88 mm[Hg] 88 mm[Hg] eCW1 ([facility]) Systolic blood pressure 135 mm[Hg] 135 mm[Hg] e CW1 ([facility]) Body temperature 97.5 [degF] 97.5 [degF] eCW1 ( [facility]) Respiratory rate 18 /min 18 /min eCW1 ([facility]) Heart rate 86 /min 86 /min eCW1 ([facility]) Body mass index (BMI) [Ratio] 24.22 kg/m2 24.22 kg/m2 eCW1 ([facility]) Body height 69 [in_us] 69 [in_us] eCW1 ([facility]) Body weight Measured 164 [lb_av] 164 [lb_av] eC W1 ([facility]) Diastolic blood pressure 86 mm[Hg] 86 mm[Hg] eCW1 ([facility]) Systolic blood pressure 131 mm[Hg] 131 mm[Hg] e CW1 ([facility]) Body temperature 97.9 [degF] 97.9 [degF] eCW1 ( [facility]) Respiratory rate 16 /min 16 /min eCW1 ([facility]) Heart rate 93 /min 93 /min eCW1 ([facility]) Body mass index (BMI) [Ratio] 24.22 kg/m2 24.22 kg/m2 eCW1 ([facility]) Body height 69 [in_us] 69 [in_us] eCW1 ([facility]) Body weight Measured 164 [lb_av] 164 [lb_av] eC W1 ([facility]) Diastolic blood pressure 94 mm[Hg] 94 mm[Hg] eCW1 ([facility]) Systolic blood pressure 137 mm[Hg] 137 mm[Hg] e CW1 ([facility]) Body temperature 98.5 [degF] 98.5 [degF] eCW1 ( [facility]) Respiratory rate 16 /min 16 /min eCW1 ([facility]) Heart rate 90 /min 90 /min eCW1 ([facility]) Body mass index (BMI) [Ratio] 24.22 kg/m2 24.22 kg/m2 eCW1 ([facility]) Body height 69 [in_us] 69 [in_us] eCW1 ([facility]) Body weight Measured 164 [lb_av] 164 [lb_av] eC W1 ([facility]) Diastolic blood pressure 76 mm[Hg] 76 mm[Hg] eCW1 ([facility]) Systolic blood pressure 132 mm[Hg] 132 mm[Hg] e CW1 ([facility]) Body temperature 97.9 [degF] 97.9 [degF] eCW1 ( [facility]) Respiratory rate 18 /min 18 /min eCW1 ([facility]) Heart rate 81 /min 81 /min eCW1 ([facility]) Body mass index (BMI) [Ratio] 24.36 kg/m2 24.36 kg/m2 eCW1 ([facility]) Body height 69 [in_us] 69 [in_us] eCW1 ([facility]) Body weight Measured 165 [lb_av] 165 [lb_av] eC W1 ([facility]) Diastolic blood pressure 86 mm[Hg] 86 mm[Hg] eCW1 ([facility]) Systolic blood pressure 138 mm[Hg] 138 mm[Hg] e CW1 ([facility]) Body temperature 97.1 [degF] 97.1 [degF] eCW1 ( [facility]) Respiratory rate 18 /min 18 /min eCW1 ([facility]) Heart rate 77 /min 77 /min eCW1 ([facility]) Body mass index (BMI) [Ratio] 24.36 kg/m2 24.36 kg/m2 eCW1 ([facility]) Body height 69 [in_us] 69 [in_us] eCW1 ([facility]) Body weight Measured 165.0 [lb_av] 165.0 [lb_av ] eCW1 ([facility]) Diastolic blood pressure 91 mm[Hg] 91 mm[Hg] eCW1 ([facility]) Systolic blood pressure 145 mm[Hg] 145 mm[Hg] e CW1 ([facility]) Body temperature 97.9 [degF] 97.9 [degF] eCW1 ( [facility]) Respiratory rate 18 /min 18 /min eCW1 ([facility]) Heart rate 76 /min 76 /min eCW1 ([facility]) Body mass index (BMI) [Ratio] 24.13 kg/m2 24.13 kg/m2 W1 ([facility]) Body height 69 [in_us] 69 [in_us] eCW1 ([facility]) Body weight Measured 163.4 [lb_av] 163.4 [lb_av ] eCW1 ([facility]) Diastolic blood pressure 101 mm[Hg] 101 mm[Hg] eCW1 ([facility]ly [facility]) Systolic blood pressure 141 mm[Hg] 141 mm[Hg] e CW1 ([facility]ly [facility]) Body temperature 97.9 [degF] 97.9 [degF] eCW1 ( [facility]) Respiratory rate 18 /min 18 /min eCW1 ([facility]) Heart rate 82 /min 82 /min eCW1 ([facility]) Body mass index (BMI) [Ratio] 24.13 kg/m2 24.13 kg/m2 eCW1 (Formerly [facility]) Body height 69 [in_us] 69 [in_us] eCW1 ([facility]) Body weight Measured 163.4 [lb_av] 163.4 [lb_av ] eCW1 (Formerly [facility]) ID Date Data Source [id number] 06/01/2019 11:45:02 AM [facility] Name Value Range Interpretation Code Description Data Source(s) WEIGHT RECORDED 165 lb 165 lb [facility] Body height Measured 69 in 69 in [facility] Patient Treatment Plan of Care Planned Activity Planned Date Details Description Data Source (s) Morphine Sulfate 15 MG Oral Tablet 02/23/2020 12:00:00 AM EST eCW1 (Formerly [facility]) Acetaminophen 325 MG / Oxycodone Hydrochloride 10 MG O ral Tablet [Percocet] 02/23/2020 12:00:00 AM EST eCW1 ([facility]) Morphine Sulfate 15 MG Oral Tablet 02/23/2020 12:00:00 AM EST eCW1 (Formerly [facility]) Acetaminophen 325 MG / Oxycodone Hydrochloride 10 MG O ral Tablet [Percocet] 02/23/2020 12:00:00 AM EST eCW1 ([facility]) Morphine Sulfate 15 MG Oral Tablet 02/23/2020 12:00:00 AM EST eCW1 ([facility]ly [facility]) Acetaminophen 325 MG / Oxycodone Hydrochloride 10 MG O ral Tablet [Percocet] 02/23/2020 12:00:00 AM EST eCW1 ([facility]) Morphine Sulfate 15 MG Oral Tablet 02/23/2020 12:00:00 AM EST eCW1 ([facility]ly [facility]) Acetaminophen 325 MG / Oxycodone Hydrochloride 10 MG O ral Tablet [Percocet] 02/23/2020 12:00:00 AM EST eCW1 ([facility]) Morphine Sulfate 15 MG Oral Tablet 02/23/2020 12:00:00 AM EST eCW1 ([facility]ly [facility]) Acetaminophen 325 MG / Oxycodone Hydrochloride 10 MG O ral Tablet [Percocet] 02/23/2020 12:00:00 AM EST eCW1 ([facility]) Budesonide 180 MCG/ACT 02/16/2020 12:00:00 AM EST eCW1 ([facility]ly [facility]) Budesonide 180 MCG/ACT 02/16/2020 12:00:00 AM EST eCW1 ([facility]ly [facility]) Budesonide 180 MCG/ACT 02/16/2020 12:00:00 AM EST eCW1 ([facility]) Budesonide 180 MCG/ACT 02/16/2020 12:00:00 AM EST eCW1 ([facility]ly [facility]) Budesonide 180 MCG/ACT 02/16/2020 12:00:00 AM EST eCW1 ([facility]ly [facility]) Albuterol 0.833 MG/ML / Ipratropium [place] 0.167 MG/M L Inhalant Solution 01/28/2020 12:00:00 AM EST eCW1 ([facility]) Albuterol 0.833 MG/ML / Ipratropium [place] 0.167 MG/M L Inhalant Solution 01/28/2020 12:00:00 AM EST eCW1 ([facility]) Albuterol 0.833 MG/ML / Ipratropium [place] 0.167 MG/M L Inhalant Solution 01/28/2020 12:00:00 AM EST eCW1 ([facility]) Albuterol 0.833 MG/ML / Ipratropium [place] 0.167 MG/M L Inhalant Solution 01/28/2020 12:00:00 AM EST eCW1 ([facility]) Albuterol 0.833 MG/ML / Ipratropium [place] 0.167 MG/M L Inhalant Solution 01/28/2020 12:00:00 AM EST eCW1 ([facility]) Albuterol 0.833 MG/ML / Ipratropium [place] 0.167 MG/M L Inhalant Solution 01/28/2020 12:00:00 AM EST eCW1 ([facility]) Morphine Sulfate ER 15 MG 01/27/2020 12:00:00 AM EST eCW1 ([facility]) Morphine Sulfate 15 MG Extended Release Oral Tablet 01/27/20 12:00:00 AM EST eCW1 ([facility]) Morphine Sulfate 15 MG Oral Tablet 01/27/2020 12:00:00 AM EST eCW1 ([facility]ly [facility]) Morphine Sulfate ER 15 MG 01/27/2020 12:00:00 AM EST eCW1 ([facility]) Morphine Sulfate 15 MG Extended Release Oral Tablet 01/27/20 12:00:00 AM EST eCW1 ([facility]) Morphine Sulfate 15 MG Oral Tablet 01/27/2020 12:00:00 AM EST eCW1 ([facility]) Morphine Sulfate ER 15 MG 01/26/2020 12:00:00 AM EST eCW1 ([facility]) Acetaminophen 325 MG / Oxycodone Hydrochloride 10 MG O ral Tablet [Percocet] 01/22/2020 12:00:00 AM EST eCW1 ([facility]) Acetaminophen 325 MG / Oxycodone Hydrochloride 10 MG O ral Tablet [Percocet] 01/22/2020 12:00:00 AM EST eCW1 ([facility]) Acetaminophen 325 MG / Oxycodone Hydrochloride 10 MG O ral Tablet [Percocet] 01/22/2020 12:00:00 AM EST eCW1 ([facility]) Acetaminophen 325 MG / Oxycodone Hydrochloride 10 MG O ral Tablet [Percocet] 01/22/2020 12:00:00 AM EST eCW1 ([facility]) Acetaminophen 325 MG / Oxycodone Hydrochloride 10 MG O ral Tablet [Percocet] 01/22/2020 12:00:00 AM EST eCW1 ([facility]) Acetaminophen 325 MG / Oxycodone Hydrochloride 10 MG O ral Tablet [Percocet] 01/22/2020 12:00:00 AM EST eCW1 ([facility]) Acetaminophen 325 MG / Oxycodone Hydrochloride 10 MG O ral Tablet [Percocet] 01/22/2020 12:00:00 AM EST eCW1 ([facility]) Morphine Sulfate ER 15 MG 01/20/2020 12:00:00 AM EST eCW1 ([facility]) Morphine Sulfate ER 15 MG 01/20/2020 12:00:00 AM EST eCW1 ([facility]) Morphine Sulfate ER 15 MG 01/20/2020 12:00:00 AM EST eCW1 ([facility]) Morphine Sulfate ER 15 MG 01/20/2020 12:00:00 AM EST eCW1 ([facility]) Morphine Sulfate ER 15 MG 01/20/2020 12:00:00 AM EST eCW1 ([facility]) Morphine Sulfate ER 15 MG 01/20/2020 12:00:00 AM EST eCW1 ([facility]) Morphine Sulfate ER 15 MG 01/20/2020 12:00:00 AM EST eCW1 ([facility]) duloxetine 30 MG Delayed Release Oral Capsule [Cymbalt a] 01/13/2020 12:00:00 AM EST eCW1 ([facility]) Spiriva Respimat 1.25 MCG/ACT 12/29/2019 12:00:00 AM EST eCW1 ([facility]) Spiriva Respimat 1.25 MCG/ACT 12/29/2019 12:00:00 AM EST eCW1 ([facility]) Spiriva Respimat 1.25 MCG/ACT 12/29/2019 12:00:00 AM EST eCW1 ([facility]) Spiriva Respimat 1.25 MCG/ACT 12/29/2019 12:00:00 AM EST eCW1 ([facility]) Spiriva Respimat 1.25 MCG/ACT 12/29/2019 12:00:00 AM EST eCW1 ([facility]) Spiriva Respimat 1.25 MCG/ACT 12/29/2019 12:00:00 AM EST eCW1 ([facility]) Spiriva Respimat 1.25 MCG/ACT 12/29/2019 12:00:00 AM EST eCW1 ([facility]) Spiriva Respimat 1.25 MCG/ACT 12/29/2019 12:00:00 AM EST eCW1 ([facility]) Spiriva Respimat 1.25 MCG/ACT 12/29/2019 12:00:00 AM EST eCW1 ([facility]) Spiriva Respimat 1.25 MCG/ACT 12/29/2019 12:00:00 AM EST eCW1 ([facility]) Spiriva Respimat 1.25 MCG/ACT 12/29/2019 12:00:00 AM EST eCW1 ([facility]) Spiriva Respimat 1.25 MCG/ACT 12/29/2019 12:00:00 AM EST eCW1 ([facility]) Acetaminophen 325 MG / Oxycodone Hydrochloride 10 MG O ral Tablet [Percocet] 12/22/2019 12:00:00 AM EST eCW1 ([facility]) Omeprazole 40 MG Delayed Release Oral Capsule 12/22/2019 12:00:00 A M EST eCW1 ([facility]) Sucralfate 1000 MG Oral Tablet 12/22/2019 12:00:00 AM EST eCW1 ([facility]) Acetaminophen 325 MG / Oxycodone Hydrochloride 10 MG O ral Tablet [Percocet] 12/22/2019 12:00:00 AM EST eCW1 ([facility]) Omeprazole 40 MG Delayed Release Oral Capsule 12/22/2019 12:00:00 A M EST eCW1 ([facility]) Sucralfate 1000 MG Oral Tablet 12/22/2019 12:00:00 AM EST eCW1 ([facility]) Acetaminophen 325 MG / Oxycodone Hydrochloride 10 MG O ral Tablet [Percocet] 12/22/2019 12:00:00 AM EST eCW1 ([facility]) Sucralfate 1000 MG Oral Tablet 12/22/2019 12:00:00 AM EST eCW1 ([facility]) Omeprazole 40 MG Delayed Release Oral Capsule 12/22/2019 12:00:00 A M EST eCW1 ([facility]) Acetaminophen 325 MG / Oxycodone Hydrochloride 10 MG O ral Tablet [Percocet] 12/22/2019 12:00:00 AM EST eCW1 ([facility]) Sucralfate 1000 MG Oral Tablet 12/22/2019 12:00:00 AM EST eCW1 ([facility]) Omeprazole 40 MG Delayed Release Oral Capsule 12/22/2019 12:00:00 A M EST eCW1 ([facility]) Acetaminophen 325 MG / Oxycodone Hydrochloride 10 MG O ral Tablet [Percocet] 12/22/2019 12:00:00 AM EST eCW1 ([facility]) Sucralfate 1000 MG Oral Tablet 12/22/2019 12:00:00 AM EST eCW1 ([facility]) Omeprazole 40 MG Delayed Release Oral Capsule 12/22/2019 12:00:00 A M EST eCW1 ([facility]) Acetaminophen 325 MG / Oxycodone Hydrochloride 10 MG O ral Tablet [Percocet] 12/22/2019 12:00:00 AM EST eCW1 ([facility]) Sucralfate 1000 MG Oral Tablet 12/22/2019 12:00:00 AM EST eCW1 ([facility]) Omeprazole 40 MG Delayed Release Oral Capsule 12/22/2019 12:00:00 A M EST eCW1 ([facility]) Omeprazole 40 MG Delayed Release Oral Capsule 12/22/2019 12:00:00 A M EST eCW1 ([facility]) Sucralfate 1000 MG Oral Tablet 12/22/2019 12:00:00 AM EST eCW1 ([facility]) Omeprazole 40 MG Delayed Release Oral Capsule 12/22/2019 12:00:00 A M EST eCW1 ([facility]) Sucralfate 1000 MG Oral Tablet 12/22/2019 12:00:00 AM EST eCW1 ([facility]) Omeprazole 40 MG Delayed Release Oral Capsule 12/22/2019 12:00:00 A M EST eCW1 ([facility]) Sucralfate 1000 MG Oral Tablet 12/22/2019 12:00:00 AM EST eCW1 ([facility]) Omeprazole 40 MG Delayed Release Oral Capsule 12/22/2019 12:00:00 A M EST eCW1 ([facility]) Sucralfate 1000 MG Oral Tablet 12/22/2019 12:00:00 AM EST eCW1 ([facility]) Omeprazole 40 MG Delayed Release Oral Capsule 12/22/2019 12:00:00 A M EST eCW1 ([facility]) Sucralfate 1000 MG Oral Tablet 12/22/2019 12:00:00 AM EST eCW1 ([facility]) Omeprazole 40 MG Delayed Release Oral Capsule 12/22/2019 12:00:00 A M EST eCW1 ([facility]) Sucralfate 1000 MG Oral Tablet 12/22/2019 12:00:00 AM EST eCW1 ([facility]) Omeprazole 40 MG Delayed Release Oral Capsule 12/22/2019 12:00:00 A M EST eCW1 ([facility]) Sucralfate 1000 MG Oral Tablet 12/22/2019 12:00:00 AM EST eCW1 ([facility]) Acetaminophen 325 MG / Oxycodone Hydrochloride 10 MG O ral Tablet [Percocet] 12/22/2019 12:00:00 AM EST eCW1 ([facility]) Omeprazole 40 MG Delayed Release Oral Capsule 12/22/2019 12:00:00 A M EST eCW1 ([facility]) Sucralfate 1000 MG Oral Tablet 12/22/2019 12:00:00 AM EST eCW1 ([facility]) Omeprazole 40 MG Delayed Release Oral Capsule 12/22/2019 12:00:00 A M EST eCW1 ([facility]) Sucralfate 1000 MG Oral Tablet 12/22/2019 12:00:00 AM EST eCW1 ([facility]) Omeprazole 40 MG Delayed Release Oral Capsule 12/22/2019 12:00:00 A M EST eCW1 ([facility]) Sucralfate 1000 MG Oral Tablet 12/22/2019 12:00:00 AM EST eCW1 ([facility]) Omeprazole 40 MG Delayed Release Oral Capsule 12/22/2019 12:00:00 A M EST eCW1 ([facility]) Sucralfate 1000 MG Oral Tablet 12/22/2019 12:00:00 AM EST eCW1 ([facility]) Acetaminophen 325 MG / Oxycodone Hydrochloride 10 MG O ral Tablet [Percocet] 11/24/2019 12:00:00 AM EDT eCW1 ([facility]) Diazepam 2 MG Oral Tablet 11/10/2019 12:00:00 AM EDT eCW1 ([facility]) Diazepam 2 MG Oral Tablet 11/10/2019 12:00:00 AM EDT eCW1 ([facility]) Diazepam 2 MG Oral Tablet 11/10/2019 12:00:00 AM EDT eCW1 ([facility]) Diazepam 2 MG Oral Tablet 11/10/2019 12:00:00 AM EDT eCW1 ([facility]) Diazepam 2 MG Oral Tablet 11/10/2019 12:00:00 AM EDT eCW1 ([facility]) Diazepam 2 MG Oral Tablet 11/10/2019 12:00:00 AM EDT eCW1 ([facility]) Diazepam 2 MG Oral Tablet 11/10/2019 12:00:00 AM EDT eCW1 ([facility]) Diazepam 2 MG Oral Tablet 11/10/2019 12:00:00 AM EDT eCW1 ([facility]) Diazepam 2 MG Oral Tablet 11/10/2019 12:00:00 AM EDT eCW1 ([facility]) Diazepam 2 MG Oral Tablet 11/10/2019 12:00:00 AM EDT eCW1 ([facility]) Diazepam 2 MG Oral Tablet 11/10/2019 12:00:00 AM EDT eCW1 ([facility]) Diazepam 2 MG Oral Tablet 11/10/2019 12:00:00 AM EDT eCW1 ([facility]) Diazepam 2 MG Oral Tablet 11/10/2019 12:00:00 AM EDT eCW1 ([facility]) Diazepam 2 MG Oral Tablet 11/10/2019 12:00:00 AM EDT eCW1 ([facility]) Diazepam 2 MG Oral Tablet 11/10/2019 12:00:00 AM EDT eCW1 ([facility]) Diazepam 2 MG Oral Tablet 11/10/2019 12:00:00 AM EDT eCW1 ([facility]) Diazepam 2 MG Oral Tablet 11/10/2019 12:00:00 AM EDT eCW1 ([facility]) Diazepam 2 MG Oral Tablet 11/10/2019 12:00:00 AM EDT eCW1 ([facility]) Diazepam 2 MG Oral Tablet 11/10/2019 12:00:00 AM EDT eCW1 ([facility]) Diazepam 2 MG Oral Tablet 11/10/2019 12:00:00 AM EDT eCW1 ([facility]) Diazepam 2 MG Oral Tablet 11/10/2019 12:00:00 AM EDT eCW1 ([facility]) Diazepam 2 MG Oral Tablet 11/10/2019 12:00:00 AM EDT eCW1 ([facility]) Diazepam 2 MG Oral Tablet 11/10/2019 12:00:00 AM EDT eCW1 ([facility]) Diazepam 2 MG Oral Tablet 11/10/2019 12:00:00 AM EDT eCW1 ([facility]) Diazepam 2 MG Oral Tablet 11/10/2019 12:00:00 AM EDT eCW1 ([facility]) Diazepam 2 MG Oral Tablet 11/10/2019 12:00:00 AM EDT eCW1 ([facility]) Diazepam 2 MG Oral Tablet 11/10/2019 12:00:00 AM EDT eCW1 ([facility]) Diazepam 2 MG Oral Tablet 11/10/2019 12:00:00 AM EDT eCW1 ([facility]) Diazepam 2 MG Oral Tablet 11/10/2019 12:00:00 AM EDT eCW1 ([facility]) Diazepam 2 MG Oral Tablet 11/10/2019 12:00:00 AM EDT eCW1 ([facility]) Diazepam 2 MG Oral Tablet 11/10/2019 12:00:00 AM EDT eCW1 ([facility]) Diazepam 2 MG Oral Tablet 11/10/2019 12:00:00 AM EDT eCW1 ([facility]) Diazepam 2 MG Oral Tablet 11/10/2019 12:00:00 AM EDT eCW1 ([facility]) Diazepam 2 MG Oral Tablet 11/10/2019 12:00:00 AM EDT eCW1 ([facility]) Diazepam 2 MG Oral Tablet 11/10/2019 12:00:00 AM EDT eCW1 ([facility]) Diazepam 2 MG Oral Tablet 11/10/2019 12:00:00 AM EDT eCW1 ([facility]) Diazepam 2 MG Oral Tablet 11/10/2019 12:00:00 AM EDT eCW1 ([facility]) Diazepam 2 MG Oral Tablet 11/10/2019 12:00:00 AM EDT eCW1 ([facility]) Diazepam 2 MG Oral Tablet 11/10/2019 12:00:00 AM EDT eCW1 ([facility]) Diazepam 2 MG Oral Tablet 11/10/2019 12:00:00 AM EDT eCW1 ([facility]) Diazepam 2 MG Oral Tablet 11/10/2019 12:00:00 AM EDT eCW1 ([facility]) Diazepam 2 MG Oral Tablet 11/10/2019 12:00:00 AM EDT eCW1 ([facility]) Diazepam 2 MG Oral Tablet 11/10/2019 12:00:00 AM EDT eCW1 ([facility]) Diazepam 2 MG Oral Tablet 11/10/2019 12:00:00 AM EDT eCW1 ([facility]) Diazepam 2 MG Oral Tablet 11/10/2019 12:00:00 AM EDT eCW1 ([facility]) Diazepam 2 MG Oral Tablet 11/10/2019 12:00:00 AM EDT eCW1 ([facility]) Diazepam 2 MG Oral Tablet 11/10/2019 12:00:00 AM EDT eCW1 ([facility]) Diazepam 2 MG Oral Tablet 11/10/2019 12:00:00 AM EDT eCW1 ([facility]) Diazepam 2 MG Oral Tablet 11/10/2019 12:00:00 AM EDT eCW1 ([facility]) 28 ACTUAT tiotropium 0.0025 MG/ACTUAT Metered Dose Inh aler [Spiriva] 09/04/2019 12:00:00 AM EDT eCW1 ([facility]) 28 ACTUAT tiotropium 0.0025 MG/ACTUAT Metered Dose Inh aler [Spiriva] 09/04/2019 12:00:00 AM EDT eCW1 ([facility]) 28 ACTUAT tiotropium 0.0025 MG/ACTUAT Metered Dose Inh aler [Spiriva] 09/04/2019 12:00:00 AM EDT eCW1 ([facility]) 28 ACTUAT tiotropium 0.0025 MG/ACTUAT Metered Dose Inh aler [Spiriva] 09/04/2019 12:00:00 AM EDT eCW1 ([facility]) 28 ACTUAT tiotropium 0.0025 MG/ACTUAT Metered Dose Inh aler [Spiriva] 09/04/2019 12:00:00 AM EDT eCW1 ([facility]) 28 ACTUAT tiotropium 0.0025 MG/ACTUAT Metered Dose Inh aler [Spiriva] 09/04/2019 12:00:00 AM EDT eCW1 ([facility]) 28 ACTUAT tiotropium 0.0025 MG/ACTUAT Metered Dose Inh aler [Spiriva] 09/04/2019 12:00:00 AM EDT eCW1 ([facility]) Morphine Sulfate 15 MG Extended Release Oral Tablet 09/03/19 12:00:00 AM EDT eCW1 ([facility]) 200 ACTUAT Albuterol 0.09 MG/ACTUAT Metered Dose Inhal er [Ventolin] 08/25/2019 12:00:00 AM EDT eCW1 ([facility]) tiotropium 0.018 MG/ACTUAT Inhalant Powder [Spiriva] 12:00:00 AM EDT eCW1 ([facility]) 200 ACTUAT Albuterol 0.09 MG/ACTUAT Metered Dose Inhal er [Ventolin] 08/25/2019 12:00:00 AM EDT eCW1 ([facility]) tiotropium 0.018 MG/ACTUAT Inhalant Powder [Spiriva] 12:00:00 AM EDT eCW1 ([facility]) 200 ACTUAT Albuterol 0.09 MG/ACTUAT Metered Dose Inhal er [Ventolin] 08/25/2019 12:00:00 AM EDT eCW1 ([facility]) tiotropium 0.018 MG/ACTUAT Inhalant Powder [Spiriva] 12:00:00 AM EDT eCW1 ([facility]) 200 ACTUAT Albuterol 0.09 MG/ACTUAT Metered Dose Inhal er [Ventolin] 08/25/2019 12:00:00 AM EDT eCW1 ([facility]) tiotropium 0.018 MG/ACTUAT Inhalant Powder [Spiriva] 12:00:00 AM EDT eCW1 ([facility]) 200 ACTUAT Albuterol 0.09 MG/ACTUAT Metered Dose Inhal er [Ventolin] 08/25/2019 12:00:00 AM EDT eCW1 ([facility]) tiotropium 0.018 MG/ACTUAT Inhalant Powder [Spiriva] 12:00:00 AM EDT eCW1 ([facility]) Chlorthalidone 25 MG Oral Tablet 08/04/2019 12:00:00 AM EDT eCW1 ([facility]) Propranolol Hydrochloride 10 MG Oral Tablet 08/04/2019 12:00:00 AM EDT eCW1 ([facility]) Morphine Sulfate 15 MG Extended Release Oral Tablet 07/28/19 12:00:00 AM EDT eCW1 ([facility]) Morphine Sulfate 15 MG Extended Release Oral Tablet 07/28/19 12:00:00 AM EDT eCW1 ([facility]) Acetaminophen 325 MG / Oxycodone Hydrochloride 10 MG O ral Tablet [Percocet] 07/13/2019 12:00:00 AM EDT eCW1 ([facility]) Morphine Sulfate 15 MG Extended Release Oral Tablet 07/07/19 12:00:00 AM EDT eCW1 ([facility]) Acetaminophen 325 MG / Oxycodone Hydrochloride 10 MG O ral Tablet [Percocet] 06/17/2019 12:00:00 AM EDT eCW1 ([facility]) Morphine Sulfate 15 MG Extended Release Oral Tablet 06/03/19 12:00:00 AM EDT eCW1 ([facility]) Acetaminophen 325 MG / Oxycodone Hydrochloride 10 MG O ral Tablet [Percocet] 05/18/2019 12:00:00 AM EDT eCW1 ([facility]) Morphine Sulfate 15 MG Extended Release Oral Tablet 05/04/19 12:00:00 AM EDT eCW1 ([facility]) Morphine Sulfate 15 MG Extended Release Oral Tablet 04/08/19 12:00:00 AM EST eCW1 ([facility]) Diazepam 5 MG Oral Tablet 04/01/2019 12:00:00 AM [facility] atorvastatin 40 MG Oral Tablet 03/26/2019 12:00:00 AM EST eCW1 ([facility]) atorvastatin 40 MG Oral Tablet 03/26/2019 12:00:00 AM EST eCW1 ([facility]) atorvastatin 40 MG Oral Tablet 03/26/2019 12:00:00 AM EST eCW1 ([facility]) Nystatin [id number] UNT/ML Topical Cream 03/26/2019 12:00:00 AM EST eCW1 ([facility]) Nystatin [id number] UNT/ML Topical Cream 03/26/2019 12:00:00 AM EST eCW1 ([facility]) Nystatin [id number] UNT/ML Topical Cream 03/26/2019 12:00:00 AM EST eCW1 ([facility]) atorvastatin 40 MG Oral Tablet 03/26/2019 12:00:00 AM EST eCW1 ([facility]) Losartan Potassium 50 MG Oral Tablet 03/26/2019 12:00:00 AM [facility] Ergocalciferol [id number] UNT Oral Capsule 03/26/2019 12:00:00 AM [facility] atorvastatin 40 MG Oral Tablet 03/26/2019 12:00:00 AM [facility] Nystatin [id number] UNT/ML Topical Cream 03/26/2019 12:00:00 AM EST eCW1 ([facility]) atorvastatin 40 MG Oral Tablet 03/26/2019 12:00:00 AM EST eCW1 ([facility]) Acetaminophen 325 MG / Oxycodone Hydrochloride 10 MG O ral Tablet [Percocet] 03/25/2019 12:00:00 AM EST eCW1 ([facility]) Morphine Sulfate 15 MG Extended Release Oral Tablet 03/10/19 12:00:00 AM EST eCW1 ([facility]) Diazepam 5 MG Oral Tablet 03/05/2019 12:00:00 AM [facility] Acetaminophen 325 MG / Oxycodone Hydrochloride 10 MG O ral Tablet [Percocet] 02/17/2019 12:00:00 AM EST eCW1 ([facility]) Morphine Sulfate 15 MG Extended Release Oral Tablet 02/12/19 12:00:00 AM EST eCW1 ([facility]) Acetaminophen 325 MG / Oxycodone Hydrochloride 10 MG O ral Tablet [Percocet] 01/19/2019 12:00:00 AM EST eCW1 ([facility]) Morphine Sulfate 15 MG Extended Release Oral Tablet 01/16/20 12:00:00 AM EST eCW1 ([facility]) Morphine Sulfate 15 MG Extended Release Oral Tablet 01/16/20 12:00:00 AM EST eCW1 ([facility]) duloxetine 30 MG Delayed Release Oral Capsule 12/30/2018 12:00:00 A M [facility] Losartan Potassium 25 MG Oral Tablet 05/14/2018 12:00:00 AM [facility] Propranolol Hydrochloride 20 MG Oral Tablet 01/13/2018 12:00:00 AM [facility] Oxycodone Hydrochloride 5 MG Oral Tablet 06/25/2017 12:00:00 AM [facility]
== END 2020-03-02 18:40 | DRG 72 ==
LOC: M ED 16:15 → M ED INP 16:16 → UNDOADMOB 16:16 → M ED INP 22:13 → M MSPAV 03-01 02:33 → M ED INP 03-01 02:33 → UNDOADMIN 03-02 14:17 → UNDODISOB 03-02 18:40
PROVIDERS: ADMIT Internal Medicine; ATTEND Internal Medicine
DX: G93.41 Metabolic encephalopathy (principal); G89.29 Other chronic pain; J44.9 Chronic obstructive pulmonary disease, unspecified; E78.49 Other hyperlipidemia; R06.02 Shortness of breath; I10 Essential (primary) hypertension; D53.9 Nutritional anemia, unspecified; E55.9 Vitamin D deficiency, unspecified; G47.00 Insomnia, unspecified; F41.1 Generalized anxiety disorder; F32.9 Major depressive disorder, single episode, unspecified; F17.218 Nicotine dependence, cigarettes, with other nicotine-induced disorders; Z79.82 Long term (current) use of aspirin; Z79.899 Other long term (current) drug therapy; Z88.0 Allergy status to penicillin; Z88.8 Allergy status to other drugs, medicaments and biological substances

== ENCOUNTER 2020-03-02 16:34 | Inpatient (IN) | payer MEDICARE ==
[~2020-03-02] VITALS: Ht 172.7 cm; Wt 65.2 kg
[~2020-03-02 16:34] MED LIST changes: +ASPI-161 PO; +VALS1TAB68 PO
[2020-03-02] MEDS ORDERED: ACETAMINOPHEN TAB 650MG DOSE (2X325MG) PO PRN (17:00)
[2020-03-02] MEDS ORDERED: MAALOX 30 ML SUSP *UDC PO PRN (17:00)
[2020-03-02] MEDS ORDERED: traZODone 50 MG TAB PO PRN (17:00)
[2020-03-02] MEDS ORDERED: MOM 30ML SUSPENSION UDC PO PRN (17:00)
[2020-03-02] MEDS: SUCRALFATE SUSP 1GM/10ML UD PO SCH (17:30)
--- OUTSIDE RECORDS SUMMARY | 2020-03-02 18:36 | CCD ---
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 Name Role Phone Jakub BOWIE MD Unavailable [...] Unavailable Jakub BOWIE MD Unavailable Unavailable Jakub OBWIE MD Unavailable Unavailable Jakub BOWIE MD Unavailable [...] JUDGE MD Unavailable Unavailable MANJARREZ, R PATRICK DOUGH SCALER AND MIXER Unavailable Unavailable MANJARREZ, R PATRICK DOUGH SCALER AND MIXER Unavailable Unavailable MANJARREZ, R PATRICK DOUGH SCALER AND MIXER Unavailable Unavailable MANJARREZ, R PATRICK DOUGH SCALER AND MIXER Unavailable Unavailable MANJARREZ, R PATRICK DOUGH SCALER AND MIXER Unavailable Unavailable MANJARREZ, R PATRICK DOUGH SCALER AND MIXER Unavailable Unavailable MANJARREZ, R PATRICK DOUGH SCALER AND MIXER Unavailable Unavailable MANJARREZ, R PATRICK DOUGH SCALER AND MIXER Unavailable Unavailable MANJARREZ, R PATRICK DOUGH SCALER AND MIXER Unavailable Unavailable MANJARREZ, R PATRICK DOUGH SCALER AND MIXER Unavailable Unavailable MANJARREZ, R PATRICK DOUGH SCALER AND MIXER Unavailable Unavailable MANJARREZ, R PATRICK DOUGH SCALER AND MIXER Unavailable Unavailable MANJARREZ, R PATRICK DOUGH SCALER AND MIXER Unavailable Unavailable MANJARREZ, R PATRICK DOUGH SCALER AND MIXER Unavailable Unavailable MANJARREZ, R PATRICK DOUGH SCALER AND MIXER Unavailable Unavailable MANJARREZ, R PATRICK DOUGH SCALER AND MIXER Unavailable Unavailable MANJARREZ, R PATRICK DOUGH SCALER AND MIXER Unavailable Unavailable MANJARREZ, R PATRICK DOUGH SCALER AND MIXER Unavailable Unavailable MANJARREZ, R PATRICK DOUGH SCALER AND MIXER Unavailable Unavailable MANJARREZ, R PATRICK DOUGH SCALER AND MIXER Unavailable Unavailable MANJARREZ, R PATRICK DOUGH SCALER AND MIXER Unavailable Unavailable MANJARREZ, R PATRICK DOUGH SCALER AND MIXER Unavailable Unavailable MANJARREZ, R PATRICK DOUGH SCALER AND MIXER Unavailable Unavailable MANJARREZ, R PATRICK DOUGH SCALER AND MIXER Unavailable Unavailable MANJARREZ, R PATRICK DOUGH SCALER AND MIXER Unavailable Unavailable MANJARREZ, R PATRICK DOUGH SCALER AND MIXER Unavailable Unavailable MANJARREZ, R PATRICK DOUGH SCALER AND MIXER Unavailable Unavailable MANJARREZ, R PATRICK DOUGH SCALER AND MIXER Unavailable Unavailable MANJARREZ, R PATRICK DOUGH SCALER AND MIXER Unavailable Unavailable MANJARREZ, R PATRICK DOUGH SCALER AND MIXER Unavailable Unavailable MANJARREZ, R PATRICK DOUGH SCALER AND MIXER Unavailable Unavailable MANJARREZ, R PATRICK DOUGH SCALER AND MIXER Unavailable Unavailable MANJARREZ, R PATRICK DOUGH SCALER AND MIXER Unavailable Unavailable MANJARREZ, R PATRICK DOUGH SCALER AND MIXER Unavailable Unavailable MANJARREZ, R PATRICK DOUGH SCALER AND MIXER Unavailable Unavailable MANJARREZ, R PATRICK DOUGH SCALER AND MIXER Unavailable Unavailable MANJARREZ, R PATRICK DOUGH SCALER AND MIXER Unavailable Unavailable MANJARREZ, R PATRICK DOUGH SCALER AND MIXER Unavailable Unavailable MANJARREZ, R PATRICK DOUGH SCALER AND MIXER Unavailable Unavailable MANJARREZ, R PATRICK DOUGH SCALER AND MIXER Unavailable Unavailable MANJARREZ, R PATRICK DOUGH SCALER AND MIXER Unavailable Unavailable Poe, M Brigid DOUGH SCALER AND MIXER Unavailable Unavailable Poe, M Brigid DOUGH SCALER AND MIXER Unavailable Unavailable Poe, M Brigid DOUGH SCALER AND MIXER Unavailable Unavailable Poe, M Brigid DOUGH SCALER AND MIXER Unavailable Unavailable Poe, M Brigid DOUGH SCALER AND MIXER Unavailable Unavailable Poe, M Brigid DOUGH SCALER AND MIXER Unavailable Unavailable Poe, M Brigid DOUGH SCALER AND MIXER Unavailable Unavailable Poe, M Brigid DOUGH SCALER AND MIXER Unavailable Unavailable Poe, M Brigid DOUGH SCALER AND MIXER Unavailable Unavailable Poe, M Brigid DOUGH SCALER AND MIXER Unavailable Unavailable Poe, M Brigid DOUGH SCALER AND MIXER Unavailable Unavailable Poe, M Brigid DOUGH SCALER AND MIXER Unavailable Unavailable Poe, M Brigid DOUGH SCALER AND MIXER Unavailable Unavailable Poe, M Brigid DOUGH SCALER AND MIXER Unavailable Unavailable Poe, M Brigid DOUGH SCALER AND MIXER Unavailable Unavailable Poe, M Brigid DOUGH SCALER AND MIXER Unavailable Unavailable Poe, M Brigid DOUGH SCALER AND MIXER Unavailable Unavailable Poe, M Brigid DOUGH SCALER AND MIXER Unavailable Unavailable Poe, M Brigid DOUGH SCALER AND MIXER Unavailable Unavailable Poe, M Brigid DOUGH SCALER AND MIXER Unavailable Unavailable Poe, M Brigid DOUGH SCALER AND MIXER Unavailable Unavailable Poe, M Brigid DOUGH SCALER AND MIXER Unavailable Unavailable Poe, M Brigid DOUGH SCALER AND MIXER Unavailable Unavailable Poe, M Brigid DOUGH SCALER AND MIXER Unavailable Unavailable Poe, M Brigid DOUGH SCALER AND MIXER Unavailable Unavailable Poe, M Brigid DOUGH SCALER AND MIXER Unavailable Unavailable Poe, M Brigid DOUGH SCALER AND MIXER Unavailable Unavailable Poe, M Brigid DOUGH SCALER AND MIXER Unavailable Unavailable Poe, M Brigid DOUGH SCALER AND MIXER Unavailable Unavailable Poe, M Brigid DOUGH SCALER AND MIXER Unavailable Unavailable Brooklyn Huber MD Unavailable Unavailable [...] is protected by Article 27-F of the [facility] Public Health law. If you continue you may have access to information: Regarding HIV / AIDS; Provided by facilities licensed or operated by the [facility] Office of Mental Health; or Provided by the [facility] Office for People With Developmental Disabilities. If such information is present, then the following [facility] mandated warning applies: This information has been [...] law may result in a fine or fdc sentence or both. A general authorization for the release of medical or other information is NOT sufficient authorization for further disc losure. Allergies and Adverse Reactions Type Description Substance Reaction Status Data Source(s ) Drug allergy Dexamethasone Dexamethasone erythema Active eCW1 ( [facility]) Drug allergy Penicillin (For Allergies Use Only) Drug allergy told as a child to not take Active eCW1 ([facility]) Family History Family Member Name Family Member Gender Family Member Status Date o f Status Description Data Source(s) Unknown Male Problem MEDENT ([facility] ) Unknown Unknown Problem MEDENT ([facility], ) Unknown Unknown Problem MEDENT ([facility], ) Unknown Unknown Problem MEDENT ([facility], ) Unknown Unknown Problem MEDENT ([facility]) Encounters Encounter Providers Location Date Indications Data Source(s ) Outpatient Attender: NU BOWIE MD 03/10/2020 12:00:00 A M [facility] Unknown [address] [facility] [address] 02/23/2020 12:00:00 AM EST eCW1 ([facility]) [place] [address] [facility] [place] [address] 02/23/2020 12:00:00 AM EST eCW1 ([facility]) Unknown [address] [facility] [address] 02/23/2020 12:00:00 AM EST eCW1 ([facility]) Unknown [address] [facility] [address] 02/08/2020 12:00:00 AM EST eCW1 ([facility]) TeleMedicine Phone E/M by Phys 21-30 Min [address] [place] [address] 01/28/2020 12:00:00 AM EST eCW1 ([facility]) Outpatient Attender: NU BOWIE MD 01/28/2020 12:00:00 A M [facility] Unknown [address] [facility] [address] 01/27/2020 12:00:00 AM EST eCW1 ([facility]) [place] [address] [facility] [address] 01/27/2020 12:00:00 AM EST eCW1 ([facility]) [place] [address] [facility] [address] 01/27/2020 12:00:00 AM EST eCW1 ([facility]) [place] [address] [facility] [place] [address] 01/26/2020 12:00:00 AM EST eCW1 ([facility]) Unknown [address] [facility] [place] [address] 01/25/2020 12:00:00 AM EST eCW1 ([facility]) Unknown [address] [facility] [place] [address] 01/22/2020 12:00:00 AM EST eCW1 ([facility]) Unknown [address] [facility] [place] [address] 01/20/2020 12:00:00 AM EST eCW1 ([facility]) [place] [address] [facility] [address] 01/20/2020 12:00:00 AM EST eCW1 ([facility]) (BHVHLTH) [facility] Scheduled Visit [address] [place] [address] 01/19/2020 12:00:00 AM EST eCW1 ([facility]) Unknown [address] [facility] [place] [address] 01/19/2020 12:00:00 AM EST eCW1 ([facility]) Unknown [address] [facility] [place] [address] 01/18/2020 12:00:00 AM EST eCW1 ([facility]) Unknown [address] [facility] [place] [address] 01/18/2020 12:00:00 AM EST eCW1 ([facility]) Outpatient [address] [facility] [address] 01/15/2020 12:00:00 AM EST eCW1 ([facility]) [place] [address] [facility] [address] 01/15/2020 12:00:00 AM EST eCW1 ([facility]) [place] [address] [facility] [address] 01/14/2020 12:00:00 AM EST eCW1 ([facility]) [place] [address] [facility] [address] 01/13/2020 12:00:00 AM EST eCW1 ([facility]) [place] [address] [facility] [address] 01/13/2020 12:00:00 AM EST eCW1 ([facility]) [place] [address] [facility] [address] 01/13/2020 12:00:00 AM EST eCW1 ([facility]) Outpatient Attender: NU BOWIE MD 01/13/2020 12:00:00 A [facility] Unknown [address] [facility] [address] 01/12/2020 12:00:00 AM EST eCW1 ([facility]) Unknown [address] [facility] [address] 01/12/2020 12:00:00 AM EST eCW1 ([facility]) Unknown [address] [facility] [address] 01/12/2020 12:00:00 AM EST eCW1 ([facility]) Unknown [address] [facility] [address] 01/11/2020 12:00:00 AM EST eCW1 ([facility]) Unknown [address] [facility] [address] 01/10/2020 12:00:00 AM EST eCW1 ([facility]) Unknown [address] [facility] [address] 01/05/2020 12:00:00 AM EST eCW1 ([facility]) [place] [address] [facility] [address] 01/04/2020 12:00:00 AM EST eCW1 ([facility]) [place] [address] [facility] [address] 01/02/2020 12:00:00 AM EST eCW1 ([facility]) Unknown [address] [facility] [address] 01/01/2020 12:00:00 AM EST eCW1 ([facility]) Unknown [address] [facility] [address] 12/31/2019 12:00:00 AM EST eCW1 ([facility]) Unknown [address] [facility] [address] 12/29/2019 12:00:00 AM EST eCW1 ([facility]) Unknown [address] [facility] [address] 12/28/2019 12:00:00 AM EST eCW1 ([facility]) Unknown [address] [facility] [address] 12/25/2019 12:00:00 AM EST eCW1 ([facility]) Outpatient [address] [facility] [address] 12/24/2019 12:00:00 AM EST eCW1 ([facility]) Unknown [address] [facility] [address] 12/24/2019 12:00:00 AM EST eCW1 ([facility]) Unknown [address] [facility] [address] 12/24/2019 12:00:00 AM EST eCW1 ([facility]) [place] [address] [facility] [address] 12/24/2019 12:00:00 AM EST eCW1 ([facility]) Unknown [address] [facility] [address] 12/24/2019 12:00:00 AM EST eCW1 ([facility]) Unknown [address] [facility] [address] 12/23/2019 12:00:00 AM EST eCW1 ([facility]) Unknown [address] [facility] [address] 12/23/2019 12:00:00 AM EST eCW1 ([facility]) Unknown [address] [facility] [address] 12/23/2019 12:00:00 AM EST eCW1 ([facility]) Unknown [address] [facility] [address] 12/22/2019 12:00:00 AM EST eCW1 ([facility]) Unknown [address] [facility] [address] 12/22/2019 12:00:00 AM EST eCW1 ([facility]) Outpatient [address] [facility] [address] 12/22/2019 12:00:00 AM EST eCW1 ([facility]) Unknown [address] [facility] [address] 12/22/2019 12:00:00 AM EST eCW1 ([facility]) Unknown [address] [facility] [address] 12/21/2019 12:00:00 AM EST eCW1 ([facility]) Unknown [address] [facility] [address] 12/20/2019 12:00:00 AM EST eCW1 ([facility]) Unknown [address] [facility] [address] 12/18/2019 12:00:00 AM EST eCW1 ([facility]) [place] [address] [facility] [address] 12/18/2019 12:00:00 AM EST eCW1 ([facility]) Unknown [address] [facility] [address] 12/18/2019 12:00:00 AM EST eCW1 ([facility]) Unknown [address] [facility] [place] [address] 12/18/2019 12:00:00 AM EST eCW1 ([facility]) Outpatient [address] [facility] [place] [address] 12/17/2019 12:00:00 AM EST eCW1 ([facility]) (PN Proc 45) Pain Procedure 45 [address] [place] [address] 12/11/2019 12:00:00 AM EDT eCW1 ([facility]) Unknown [address] [facility] [address] 12/10/2019 12:00:00 AM EDT eCW1 ([facility]) Unknown [address] [facility] [address] 12/10/2019 12:00:00 AM EDT eCW1 ([facility]) Unknown [address] [facility] [address] 12/09/2019 12:00:00 AM EDT eCW1 ([facility]) Unknown [address] [facility] [address] 12/07/2019 12:00:00 AM EDT eCW1 ([facility]) Unknown [address] [facility] [address] 12/01/2019 12:00:00 AM EDT eCW1 ([facility]) Unknown [address] [facility] [address] 11/30/2019 12:00:00 AM EDT eCW1 ([facility]) Outpatient [address] [facility] [place] [address] 11/30/2019 12:00:00 AM EDT eCW1 ([facility]) Unknown [address] [facility] [address] 11/29/2019 12:00:00 AM EDT eCW1 ([facility]) Outpatient [address] [facility] [address] 11/24/2019 12:00:00 AM EDT eCW1 ([facility]) Unknown [address] [facility] [address] 11/17/2019 12:00:00 AM EDT eCW1 ([facility]) (PN Proc 45) Pain Procedure 45 [address] [place] [address] 11/12/2019 12:00:00 AM EDT eCW1 ([facility]) Unknown [address] [facility] [address] 11/10/2019 12:00:00 AM EDT eCW1 ([facility]) Unknown [address] [facility] [address] 11/03/2019 12:00:00 AM EDT eCW1 ([facility]) Unknown [address] [facility] [address] 11/03/2019 12:00:00 AM EDT eCW1 ([facility]) Unknown [address] [facility] [address] 11/03/2019 12:00:00 AM EDT eCW1 ([facility]) Unknown [address] [facility] [address] 11/03/2019 12:00:00 AM EDT eCW1 ([facility]) Unknown [address] [facility] [address] 11/03/2019 12:00:00 AM EDT eCW1 ([facility]) Unknown [address] [facility] [address] 11/03/2019 12:00:00 AM EDT eCW1 ([facility]) [facility] [address] [facility] [address] 10/09/2019 12:00:00 AM EDT eCW1 ([facility]) Outpatient Attender: Brooklyn Huber MD Main office - [place] 09/28/2019 03:10:00 PM EDT MEDENT ([facility]ATIE H[facility]os) Outpatient Attender: Brooklyn Huber MD Main office - [place] 09/22/2019 11:30:00 AM EDT MEDENT ([facility]) [facility] [address] [place] [address] 09/14/2019 12:00:00 AM EDT eCW1 ([facility]) Outpatient [address] [facility] [address] 09/04/2019 12:00:00 AM EDT eCW1 ([facility]) Unknown [address] [facility] [address] 09/03/2019 12:00:00 AM EDT eCW1 ([facility]) Unknown [address] [facility] [address] 09/01/2019 12:00:00 AM EDT eCW1 ([facility]) Outpatient [address] [facility] [address] 08/31/2019 12:00:00 AM EDT eCW1 ([facility]) Unknown [address] [facility] [address] 08/28/2019 12:00:00 AM EDT eCW1 ([facility]) Unknown [address] [facility] [address] 08/27/2019 12:00:00 AM EDT eCW1 ([facility]) Unknown [address] [facility] [address] 08/27/2019 12:00:00 AM EDT eCW1 ([facility]) Unknown [address] [facility] [address] 08/26/2019 12:00:00 AM EDT eCW1 ([facility]) Outpatient [address] [facility] [address] 08/25/2019 12:00:00 AM EDT eCW1 ([facility]) Outpatient Attender: PATRICK MANJARREZ NP 08/25/2019 12:00:0 0 AM EDT [facility] Unknown [address] [facility] [address] 08/19/2019 12:00:00 AM EDT eCW1 ([facility]) Outpatient Referrer: Brigid Poe NP 08/13/2019 05:20:00 AM EDT [facility] Radiology Imaging Office Visit, Est Pt., Level 3 PC [address] [place] [address] 08/13/2019 12:00:00 AM EDT eCW1 ([facility]) Outpatient [address] [facility] [address] 08/04/2019 12:00:00 AM EDT [facility]CW1 ([facility] Unknown [address] [facility] [address] 08/03/2019 12:00:00 AM EDT eCW1 ([facility]) [facility] [address] [place] [address] 07/30/2019 12:00:00 AM EDT eCW1 ([facility]) Outpatient Referrer: Brigid Poe NP 07/29/2019 05:54:00 AM EDT [facility] Radiology Imaging [facility] [address] [place] [address] 07/29/2019 12:00:00 AM EDT eCW1 ([facility]) Unknown [address] [facility] [address] 07/28/2019 12:00:00 AM EDT [facility]CW1 ([facility]) Unknown [address] [facility] [address] 07/24/2019 12:00:00 AM EDT eCW1 ([facility]) Unknown [address] [facility] [address] 07/22/2019 12:00:00 AM EDT eCW1 ([facility]) Outpatient [address] [facility] [address] 07/14/2019 12:00:00 AM EDT eCW1 ([facility]) TeleMedicine Phone E/M by Phys 11-[address] [place] [address] 07/13/2019 12:00:00 AM EDT eCW1 ([facility]) [facility] [address] [place] [address] 07/13/2019 12:00:00 AM EDT eCW1 ([facility] [place]) [facility] [address] [place] [address] 07/07/2019 12:00:00 AM EDT eCW1 ([facility]) [facility] [address] [place] [address] 06/25/2019 12:00:00 AM EDT eCW1 ([facility]) [facility] [address] [place] [address] 06/24/2019 12:00:00 AM EDT eCW1 ([facility]) [facility] [address] [place] [address] 06/16/2019 12:00:00 AM EDT eCW1 ([facility]) [facility] [address] [place] [address] 06/12/2019 12:00:00 AM EDT eCW1 ([facility]) [facility] [address] [place] [address] 06/03/2019 12:00:00 AM EDT eCW1 ([facility]) [facility] [address] [place] [phone] 06/03/2019 12:00:00 AM EDT eCW1 ([facility]) Outpatient Attender: NU BOWIE MD 06/03/2019 12:00:00 A M [facility] [address] [place] [address] 05/28/2019 12:00:00 AM EDT eCW1 ([facility]) [facility] [address] [place] [phone] 05/27/2019 12:00:00 AM EDT eCW1 ([facility]) [facility] [address] [place] [phone] 05/27/2019 12:00:00 AM EDT eCW1 ([facility]) [facility] [address] [place] [phone] 05/22/2019 12:00:00 AM EDT eCW1 ([facility]) [facility] [address] [place] [address] 05/21/2019 12:00:00 AM EDT eCW1 ([facility]) [facility] [address] [place] [phone] 05/20/2019 12:00:00 AM EDT eCW1 ([facility]) [facility] [address] [place] [phone] 05/18/2019 12:00:00 AM EDT eCW1 ([facility]) [facility] Dermatology [address] [place] [phone] 05/15/2019 12:00:00 AM EDT eCW1 ([facility]) [facility] [address] [place] [phone] 05/12/2019 12:00:00 AM EDT eCW1 ([facility]) [facility] [address] [place] [phone] 05/12/2019 12:00:00 AM EDT eCW1 ([facility]) [facility] [address] [place] [phone] 05/08/2019 12:00:00 AM EDT eCW1 ([facility]) [facility] [address] [place] [phone] 05/05/2019 12:00:00 AM EDT [facility]1 [facility]) [facility] [address] [place] [phone] 05/01/2019 12:00:00 AM EDT [facility]CW1 ([facility] [place]) [facility] [address] [place] [address] [place] [address] 04/30/2019 12:00:00 AM EDT [facility]CW1 [facility]) [facility] [address] [place] [phone] 04/30/2019 12:00:00 AM EDT eCW1 ([facility]) [facility] [address] [place] [phone] 04/21/2019 12:00:00 AM EDT eCW1 ([facility]) [facility] [address] [place] [phone] 04/16/2019 12:00:00 AM EST eCW1 ([facility]) [facility] [address] [place] [address] Y [phone] 04/15/2019 12:00:00 AM EST eCW1 ([facility]) [facility] [address] [place] [address] Y [phone] 04/14/2019 12:00:00 AM EST eCW1 ([facility]) [facility] [address] [place] [phone] 04/09/2019 12:00:00 AM EST [facility]CW1 [facility] [place]) [facility] [address] [place] [phone] 04/08/2019 12:00:00 AM EST [facility]CW1 [facility] [place] Outpatient Referrer: Brigid Poe NP 04/07/2019 08:15:00 AM EST [facility] [address] [facility] [place] [place] [phone] 04/07/2019 12:00:00 AM EST eCW1 ([facility]) [address] [phone] 04/06/2019 12:00:00 AM EST eCW1 ([facility]) [facility] [address] [place] [phone] 04/02/2019 12:00:00 AM EST eCW1 ([facility] Outpatient Attender: NU BOWIE MD [id number] 2019 12:00:00 AM EST - 04/20/2019 07:15:28 AM EDT Lesion of ulnar nerve, right upper limb [facility] Lesion of ulnar nerve, right upper limb [facility] [address] [place] [phone] 03/31/2019 12:00:00 AM EST eCW1 ([facility]) [facility] [address] [place] [phone] 03/27/2019 12:00:00 AM EST eCW1 ([facility]) [facility] [address] [place] [phone] 03/26/2019 12:00:00 AM EST eCW1 ([facility]) [facility] [address] [place] [phone] 03/26/2019 12:00:00 AM EST eCW1 ([facility] [place]) [facility] [address] [place] [phone] 03/25/2019 12:00:00 AM EST eCW1 ([facility] [place]) [facility] [address] [place] [phone] 03/25/2019 12:00:00 AM EST eCW1 ([facility] [place]) [facility] [address] [place] [phone] 03/23/2019 12:00:00 AM EST eCW1 ([facility] [place]) [facility] [address] [place] [phone] 03/10/2019 12:00:00 AM EST eCW1 ([facility]) Outpatient Attender: NU BOWIE MD 03/05/2019 12:00:[address] [facility] [address] [place] [phone] 03/02/2019 12:00:00 AM EST eCW1 ([facility] [place]) [facility] [address] [place] [phone] 02/27/2019 12:00:00 AM EST eCW1 ([facility] [place]) [facility] [address] [place] [phone] 02/24/2019 12:00:00 AM EST eCW1 ([facility] [place]) [facility] [address] [place], [place] [phone] 02/23/2019 12:00:00 AM EST eCW1 ([facility] [place]) [facility] [address] [place] [phone] 02/16/2019 12:00:00 AM EST eCW1 ([facility] [place]) [facility] [address] [place] [phone] 02/13/2019 12:00:00 AM EST eCW1 ([facility] [place]) [facility] [address] [place] [phone] 02/13/2019 12:00:00 AM EST eCW1 ([facility] [place]) [facility] [address] [place] [phone] 02/12/2019 12:00:00 AM EST eCW1 ([facility] [place]) [facility] [address] [place] [phone] 01/23/2019 12:00:00 AM EST eCW1 ([facility] [place]) [facility] [address] [place] [phone] 01/19/2019 12:00:00 AM EST eCW1 ([facility] [place]) [facility] [address] [place] [phone] 01/14/2019 12:00:00 AM EST eCW1 ([facility]) [facility] [address] [place] [phone] 01/12/2019 12:00:00 AM EST eCW1 ([facility]) [facility] [address] [place] [phone] 01/12/2019 12:00:00 AM EST eCW1 ([facility]) [facility] [address] [place] [phone] 01/07/2019 12:00:00 AM EST eCW1 ([facility]) Outpatient Attender: NU BOWIE MD [id number] 2018 12:00:00 AM EDT - 12/04/2018 04:58:06 PM EDT Impingement syndrome of left shoulder [facility] Impingement syndrome of left shoulder Outpatient Attender: NU BOWIE MD [id number] 2018 12:00:00 AM EDT - 09/11/2018 11:29:37 AM EDT Other specified postprocedural states [facility] Other specified postprocedural states Outpatient Attender: NU BOWIE MD [id number] 2018 12:00:00 AM EDT - 07/10/2018 03:37:50 PM EDT Complete rotator cuff tear or rupture of right shoulder, not specified as traumatic [facility] Complete rotator cuff tear or rupture of right shoulder, not specified as traumatic Immunizations Vaccine Date Status Description Data Source(s) influenza, recombinant, quadrIvalent,injectable, prese rvative free 01/15/2020 10:57:00 AM EST completed eCW1 ([facility]) influenza, recombinant, quadrIvalent,injectable, prese rvative free 01/15/2020 10:57:00 AM EST completed eCW1 ([facility]) influenza, recombinant, quadrIvalent,injectable, prese rvative free 01/15/2020 10:57:00 AM EST completed eCW1 ([facility]) influenza, recombinant, quadrIvalent,injectable, prese rvative free 01/15/2020 10:57:00 AM EST completed eCW1 ([facility]) influenza, recombinant, quadrIvalent,injectable, prese rvative free 01/15/2020 10:57:00 AM EST completed eCW1 ([facility]) influenza, recombinant, quadrIvalent,injectable, prese rvative free 01/15/2020 10:57:00 AM EST completed eCW1 ([facility]) influenza, recombinant, quadrIvalent,injectable, prese rvative free 01/15/2020 10:57:00 AM EST completed eCW1 ([facility]) influenza, recombinant, quadrIvalent,injectable, prese rvative free 01/15/2020 10:57:00 AM EST completed eCW1 ([facility]) influenza, recombinant, quadrIvalent,injectable, prese rvative free 01/15/2020 10:57:00 AM EST completed eCW1 ([facility]) influenza, recombinant, quadrIvalent,injectable, prese rvative free 01/15/2020 10:57:00 AM EST completed eCW1 ([facility]) influenza, recombinant, quadrIvalent,injectable, prese rvative free 01/15/2020 10:57:00 AM EST completed eCW1 ([facility]) influenza, recombinant, quadrIvalent,injectable, prese rvative free 01/15/2020 10:57:00 AM EST completed eCW1 ([facility]) influenza, recombinant, quadrIvalent,injectable, prese rvative free 01/15/2020 10:57:00 AM EST completed eCW1 ([facility]) influenza, recombinant, quadrIvalent,injectable, prese rvative free 01/15/2020 10:57:00 AM EST completed eCW1 ([facility]) influenza, recombinant, quadrIvalent,injectable, prese rvative free 01/15/2020 10:57:00 AM EST completed eCW1 ([facility]) influenza, recombinant, quadrIvalent,injectable, prese rvative free 01/15/2020 10:57:00 AM EST completed eCW1 ([facility]) influenza, recombinant, quadrIvalent,injectable, prese rvative free 01/15/2020 10:57:00 AM EST completed eCW1 ([facility]) influenza, recombinant, quadrIvalent,injectable, prese rvative free 01/15/2020 10:57:00 AM EST completed eCW1 ([facility]) influenza, recombinant, quadrIvalent,injectable, prese rvative free 01/15/2020 10:57:00 AM EST completed eCW1 ([facility]) influenza, recombinant, quadrIvalent,injectable, prese rvative free 01/15/2020 10:57:00 AM EST completed eCW1 ([facility]) influenza, recombinant, quadrIvalent,injectable, prese rvative free 01/15/2020 10:57:00 AM EST completed eCW1 ([facility]) influenza, recombinant, quadrIvalent,injectable, prese rvative free 01/15/2020 10:57:00 AM EST completed eCW1 ([facility]) influenza, recombinant, quadrIvalent,injectable, prese rvative free 01/15/2020 10:57:00 AM EST completed eCW1 ([facility]) Medications Medication Brand Name Start Date Product Form Dose Route Admi nistrative Instructions Pharmacy Instructions Status Indications Reaction Description Data Source(s) Amitriptyline Hydrochloride 25 MG Oral Tablet AMITRIPTYLINE HCL 02/24/2020 12:00:00 AM EST tablet 150 TAKE 5 TABLETS BY MOUTH O NCE A DAY TAKE 5 TABLETS BY MOUTH ONCE A DAY SOLD: 02/24/2020 [facility] 10-325 mg 02/24/2020 12:00:00 AM EST tablet 90 TAKE ONE TABLET BY MOUTH EVERY 6 HOURS NEEDED MAXIMUM DAILY DOSE = 4 SHOULD LAST 30 DAYS TAKE ONE TABLET BY MOUTH EVERY 6 HOURS NEEDED MAXIMUM DAILY DOSE = 4 SHOULD LAST 30 DAYS SOLD: 02/24/2020 [facility] 15 mg 02/24/2020 12:00:00 AM EST tablet extended release 90 TAKE ONE TABLET BY MOUTH EVERY 8 HOURS MAXIMUM DAILY DOSE = 3 TAKE ONE TABLET BY MOUTH EVERY 8 HOURS MAXIMUM DAILY DOSE = 3 SOLD: 02/24/2020 [facility] Acetaminophen 325 MG / Oxycodone Hydroch loride 10 MG Oral Tablet [Percocet] Percocet 10-325 MG Percocet 10-325 MG 02/23/2020 12:00:00 AM EST 1.0 {tablet_as_needed} active Percocet 10-3 25 MG eCW1 ([facility]) Morphine Sulfate 15 MG Oral Tablet Morphine Sulfate 15 MG 12:00:00 AM EST 1.0 {tablet_as_needed} active M orphine Sulfate 15 MG eCW1 ([facility]) Acetaminophen 325 MG / Oxycodone Hydroch loride 10 MG Oral Tablet [Percocet] Percocet 10-325 MG Percocet 10-325 MG 02/23/2020 12:00:00 AM EST 1.0 {tablet_as_needed} active Percocet 10-3 25 MG eCW1 ([facility]) Morphine Sulfate 15 MG Oral Tablet Morphine Sulfate 15 MG 12:00:00 AM EST 1.0 {tablet_as_needed} active M orphine Sulfate 15 MG eCW1 ([facility]) Acetaminophen 325 MG / Oxycodone Hydroch loride 10 MG Oral Tablet [Percocet] Percocet 10-325 MG Percocet 10-325 MG 02/23/2020 12:00:00 AM EST 1.0 {tablet_as_needed} active Percocet 10-3 25 MG eCW1 ([facility]) Morphine Sulfate 15 MG Oral Tablet Morphine Sulfate 15 MG 12:00:00 AM EST 1.0 {tablet_as_needed} active M orphine Sulfate 15 MG eCW1 ([facility]) Budesonide 180 MCG/ACT UNK 02/16/2020 12:00:00 AM EST 1.0 {puff } active Budesonide 180 MCG/ACT eCW1 ([facility]) Budesonide 180 MCG/ACT UNK 02/16/2020 12:00:00 AM EST 1.0 {puff } active Budesonide 180 MCG/ACT eCW1 ([facility]) Budesonide 180 MCG/ACT UNK 02/16/2020 12:00:00 AM EST 1.0 {puff } active Budesonide 180 MCG/ACT eCW1 ([facility]) 2 mg 02/09/2020 12:00:00 AM [...] BY MOUTH ONCE A DAY SOLD: 02/04/2020 [facility] Albuterol 0.833 MG/ML / Ipratropium Brom krish 0.167 MG/ML Inhalant Solution Ipratropium-Albuterol 0.5-2.5 (3) MG/3ML Ipratropium-Albuterol 0.5-2.5 (3) MG/3ML 01/28/2020 12:00:00 AM EST 3.0 {ml_as_needed} active Ipratropium-Albuterol 0.5-2.5 (3) MG/3ML eCW1 ([facility]) Albuterol 0.833 MG/ML / Ipratropium Brom krish 0.167 MG/ML Inhalant Solution Ipratropium-Albuterol 0.5-2.5 (3) MG/3ML Ipratropium-Albuterol 0.5-2.5 (3) MG/3ML 01/28/2020 12:00:00 AM EST 3.0 {ml_as_needed} active Ipratropium-Albuterol 0.5-2.5 (3) MG/3ML eCW1 ([facility]) Albuterol 0.833 MG/ML / Ipratropium Brom krish 0.167 MG/ML Inhalant Solution Ipratropium-Albuterol 0.5-2.5 (3) MG/3ML Ipratropium-Albuterol 0.5-2.5 (3) MG/3ML 01/28/2020 12:00:00 AM EST 3.0 {ml_as_needed} active Ipratropium-Albuterol 0.5-2.5 (3) MG/3ML eCW1 ([facility]) Albuterol 0.833 MG/ML / Ipratropium Brom krish 0.167 MG/ML Inhalant Solution Ipratropium-Albuterol 0.5-2.5 (3) MG/3ML Ipratropium-Albuterol 0.5-2.5 (3) MG/3ML 01/28/2020 12:00:00 AM EST 3.0 {ml_as_needed} active Ipratropium-Albuterol 0.5-2.5 (3) MG/3ML eCW1 ([facility]) Albuterol 0.833 MG/ML / Ipratropium Brom krish 0.167 MG/ML Inhalant Solution Ipratropium-Albuterol 0.5-2.5 (3) MG/3ML Ipratropium-Albuterol 0.5-2.5 (3) MG/3ML 01/28/2020 12:00:00 AM EST 3.0 {ml_as_needed} active Ipratropium-Albuterol 0.5-2.5 (3) MG/3ML eCW1 ([facility]) Albuterol 0.833 MG/ML / Ipratropium Brom krish 0.167 MG/ML Inhalant Solution Ipratropium-Albuterol 0.5-2.5 (3) MG/3ML Ipratropium-Albuterol 0.5-2.5 (3) MG/3ML 01/28/2020 12:00:00 AM EST 3.0 {ml_as_needed} active Ipratropium-Albuterol 0.5-2.5 (3) MG/3ML eCW1 ([facility]) Albuterol 0.833 MG/ML / Ipratropium Brom krish 0.167 MG/ML Inhalant Solution Ipratropium-Albuterol 0.5-2.5 (3) MG/3ML Ipratropium-Albuterol 0.5-2.5 (3) MG/3ML 01/28/2020 12:00:00 AM EST 3.0 {ml_as_needed} active Ipratropium-Albuterol 0.5-2.5 (3) MG/3ML eCW1 ([facility]) Albuterol 0.833 MG/ML / Ipratropium Brom krish 0.167 MG/ML Inhalant Solution Ipratropium-Albuterol 0.5-2.5 (3) MG/3ML Ipratropium-Albuterol 0.5-2.5 (3) MG/3ML 01/28/2020 12:00:00 AM EST 3.0 {ml_as_needed} active Ipratropium-Albuterol 0.5-2.5 (3) MG/3ML eCW1 ([facility]) Albuterol 0.833 MG/ML / Ipratropium Brom krish 0.167 MG/ML Inhalant Solution Ipratropium-Albuterol 0.5-2.5 (3) MG/3ML Ipratropium-Albuterol 0.5-2.5 (3) MG/3ML 01/28/2020 12:00:00 AM EST 3.0 {ml_as_needed} active Ipratropium-Albuterol 0.5-2.5 (3) MG/3ML eCW1 ([facility]) Morphine Sulfate 15 MG Extended Release Oral Tablet Mo rphine Sulfate ER 15 MG Morphine Sulfate ER 15 MG 01/27/2020 12:00:00 AM EST 1.0 {tablet} active Morphine Sulfate ER 15 MG eCW1 ( [facility]) Morphine Sulfate 15 MG Oral Tablet Morphine Sulfate 15 MG 12:00:00 AM EST 1.0 {tablet_as_needed} active M orphine Sulfate 15 MG eCW1 ([facility]) Morphine Sulfate 15 MG Oral Tablet Morphine Sulfate 15 MG 12:00:00 AM EST 1.0 {tablet_as_needed} active M orphine Sulfate 15 MG eCW1 ([facility]) Morphine Sulfate ER 15 MG UNK 01/27/2020 12:00:00 AM EST 1.0 {tablet} active Morphine Sulfate ER 15 MG eCW1 ( [facility]) Morphine Sulfate ER 15 MG UNK 01/27/2020 12:00:00 AM EST 1.0 {tablet} active Morphine Sulfate ER 15 MG eCW1 ( [facility]) Morphine Sulfate 15 MG Oral Tablet Morphine Sulfate 15 MG 12:00:00 AM EST 1.0 {tablet_as_needed} active M orphine Sulfate 15 MG eCW1 ([facility]) Morphine Sulfate 15 MG Oral Tablet Morphine Sulfate 15 MG 12:00:00 AM EST 1.0 {tablet_as_needed} active M orphine Sulfate 15 MG eCW1 ([facility]) Morphine Sulfate 15 MG Oral Tablet Morphine Sulfate 15 MG 12:00:00 AM EST 1.0 {tablet_as_needed} active M orphine Sulfate 15 MG eCW1 ([facility]) Morphine Sulfate 15 MG Oral Tablet Morphine Sulfate 15 MG 12:00:00 AM EST 1.0 {tablet_as_needed} active M orphine Sulfate 15 MG eCW1 ([facility]) Morphine Sulfate 15 MG Oral Tablet Morphine Sulfate 15 MG 12:00:00 AM EST 1.0 {tablet_as_needed} active M orphine Sulfate 15 MG eCW1 ([facility]) 15 mg 01/27/2020 12:00:00 AM EST tablet [...] Morphine Sulfate ER 15 MG eCW1 ( [facility]) Morphine Sulfate 15 MG Oral Tablet Morphine Sulfate 15 MG 12:00:00 AM EST 1.0 {tablet_as_needed} active M orphine Sulfate 15 MG eCW1 ([facility]) Morphine Sulfate ER 15 MG UNK 01/26/2020 12:00:00 AM EST 1.0 {tablet} active Morphine Sulfate ER 15 MG eCW1 ( [facility]) Acetaminophen 325 MG / Oxycodone Hydroch loride 10 MG Oral Tablet [Percocet] Percocet 10-325 MG Percocet 10-325 MG 01/22/2020 12:00:00 AM EST 1.0 {tablet_as_needed} active Percocet 10-3 25 MG eCW1 ([facility]) Acetaminophen 325 MG / Oxycodone Hydroch loride 10 MG Oral Tablet [Percocet] Percocet 10-325 MG Percocet 10-325 MG 01/22/2020 12:00:00 AM EST 1.0 {tablet_as_needed} suspended Percocet 10 -325 MG eCW1 ([facility]) Acetaminophen 325 MG / Oxycodone Hydroch loride 10 MG Oral Tablet [Percocet] Percocet 10-325 MG Percocet 10-325 MG 01/22/2020 12:00:00 AM EST 1.0 {tablet_as_needed} active Percocet 10-3 25 MG eCW1 ([facility]) 10-325 mg 01/22/2020 12:00:00 AM EST tablet 90 TAKE 1 TABLET BY MOUTH EVERY 6 HOURS NEEDED MAXIMUM DAILY DOSE = 4 TABLETS (SHOULD LAST 30 DAYS) TAKE 1 TABLET BY MOUTH EVERY 6 HOURS NEEDED MAXIMUM DAILY DOSE = 4 TABLETS (SHOULD LAST 30 DAYS) SOLD: 01/22/2020 [facility] Acetaminophen 325 MG / Oxycodone Hydroch loride 10 MG Oral Tablet [Percocet] Percocet 10-325 MG Percocet 10-325 MG 01/22/2020 12:00:00 AM EST 1.0 {tablet_as_needed} suspended Percocet 10 -325 MG eCW1 ([facility]) Acetaminophen 325 MG / Oxycodone Hydroch loride 10 MG Oral Tablet [Percocet] Percocet 10-325 MG Percocet 10-325 MG 01/22/2020 12:00:00 AM EST 1.0 {tablet_as_needed} suspended Percocet 10 -325 MG eCW1 ([facility]) 2 mg 01/22/2020 12:00:00 AM EST tablet [...] 2 AND 1/2 TABLETS SOLD: 01/22/2020 [facility] Acetaminophen 325 MG / Oxycodone Hydroch loride 10 MG Oral Tablet [Percocet] Percocet 10-325 MG Percocet 10-325 MG 01/22/2020 12:00:00 AM EST 1.0 {tablet_as_needed} active Percocet 10-3 25 MG eCW1 ([facility]) Acetaminophen 325 MG / Oxycodone Hydroch loride 10 MG Oral Tablet [Percocet] Percocet 10-325 MG Percocet 10-325 MG 01/22/2020 12:00:00 AM EST 1.0 {tablet_as_needed} suspended Percocet 10 -325 MG eCW1 ([facility]) Acetaminophen 325 MG / Oxycodone Hydroch loride 10 MG Oral Tablet [Percocet] Percocet 10-325 MG Percocet 10-325 MG 01/22/2020 12:00:00 AM EST 1.0 {tablet_as_needed} active Percocet 10-3 25 MG eCW1 ([facility]) Acetaminophen 325 MG / Oxycodone Hydroch loride 10 MG Oral Tablet [Percocet] Percocet 10-325 MG Percocet 10-325 MG 01/22/2020 12:00:00 AM EST 1.0 {tablet_as_needed} active Percocet 10-3 25 MG eCW1 ([facility]) Acetaminophen 325 MG / Oxycodone Hydroch loride 10 MG Oral Tablet [Percocet] Percocet 10-325 MG Percocet 10-325 MG 01/22/2020 12:00:00 AM EST 1.0 {tablet_as_needed} suspended Percocet 10 -325 MG eCW1 ([facility]) Acetaminophen 325 MG / Oxycodone Hydroch loride 10 MG Oral Tablet [Percocet] Percocet 10-325 MG Percocet 10-325 MG 01/22/2020 12:00:00 AM EST 1.0 {tablet_as_needed} suspended Percocet 10 -325 MG eCW1 ([facility]) Acetaminophen 325 MG / Oxycodone Hydroch loride 10 MG Oral Tablet [Percocet] Percocet 10-325 MG Percocet 10-325 MG 01/22/2020 12:00:00 AM EST 1.0 {tablet_as_needed} active Percocet 10-3 25 MG eCW1 ([facility]) Acetaminophen 325 MG / Oxycodone Hydroch loride 10 MG Oral Tablet [Percocet] Percocet 10-325 MG Percocet 10-325 MG 01/22/2020 12:00:00 AM EST 1.0 {tablet_as_needed} active Percocet 10-3 25 MG eCW1 ([facility]) Morphine Sulfate ER 15 MG UNK 01/20/2020 12:00:00 AM EST 1.0 {tablet} active Morphine Sulfate ER 15 MG eCW1 ( [facility]) Morphine Sulfate ER 15 MG UNK 01/20/2020 12:00:00 AM EST 1.0 {tablet} active Morphine Sulfate ER 15 MG eCW1 ( [facility]) Morphine Sulfate ER 15 MG UNK 01/20/2020 12:00:00 AM EST 1.0 {tablet} active Morphine Sulfate ER 15 MG eCW1 ( [facility]) Morphine Sulfate ER 15 MG UNK 01/20/2020 12:00:00 AM EST 1.0 {tablet} active Morphine Sulfate ER 15 MG eCW1 ( [facility]) Morphine Sulfate ER 15 MG UNK 01/20/2020 12:00:00 AM EST 1.0 {tablet} active Morphine Sulfate ER 15 MG eCW1 ( [facility]) Morphine Sulfate ER 15 MG UNK 01/20/2020 12:00:00 AM EST 1.0 {tablet} active Morphine Sulfate ER 15 MG eCW1 ( [facility]) 1 gram 01/20/2020 12:00:00 AM EST tablet 90 TAKE ONE TABLET BY MOUTH THREE TIMES A DAY ON EMPTY STOMACH BEFORE MEAL TAKE ONE TABLET BY MOUTH THREE TIMES A DAY ON EMPTY STOMACH BEFORE MEAL SOLD: 01/21/2020 [facility] Morphine Sulfate ER 15 MG UNK 01/20/2020 12:00:00 AM EST 1.0 {tablet} active Morphine Sulfate ER 15 MG eCW1 ( [facility]) 40 mg 01/16/2020 12:00:00 AM EST capsule,delayed [...] {capsule} acti ve Cymbalta 30 MG eCW1 ([facility]) duloxetine 30 MG Delayed Release Oral Capsule [Cymbalt a] Cymbalta 30 MG Cymbalta 30 MG 01/13/2020 12:00:00 AM EST 1.0 {capsule} acti ve Cymbalta 30 MG eCW1 ([facility]) 30 mg 01/13/2020 12:00:00 AM EST capsule,delayed release (DR/EC) 60 TAKE ONE CAPSULE BY MOUTH TWICE A DAY TAKE ONE CAPSULE BY MOUTH TWICE A DAY SOLD: 01/20/2020 [facility] duloxetine 30 MG Delayed Release Oral Capsule [Cymbalt a] Cymbalta 30 MG Cymbalta 30 MG 01/13/2020 12:00:00 AM EST 1.0 {capsule} acti ve Cymbalta 30 MG eCW1 ([facility]) duloxetine 30 MG Delayed Release Oral Capsule [Cymbalt a] Cymbalta 30 MG Cymbalta 30 MG 01/13/2020 12:00:00 AM EST 1.0 {capsule} acti ve Cymbalta 30 MG eCW1 ([facility]) 30 mg 01/12/2020 12:00:00 AM EST capsule,delayed release (DR/EC) 60 TAKE ONE CAPSULE BY MOUTH TWICE A DAY FOR PAIN TAKE ONE CAPSULE BY MOUTH TWICE A DAY FO R PAIN SOLD: 01/12/2020 [facility] 10 mg 01/08/2020 12:00:00 AM EST tablet 30 TAKE ONE TABLET BY MOUTH EVERY DAY TAKE ONE TABLET BY MOUTH EVERY DAY SOLD: 01/08/2020 [facility] Amitriptyline Hydrochloride 25 MG Oral Tablet AMITRIPTYLINE HCL 01/05/2020 12:00:00 AM EST tablet 90 TAKE THREE TABLETS BY ADENIKE TH EVERY DAY TAKE THREE TABLETS BY MOUTH EVERY DAY SOLD: 01/20/2020 [facility] Amitriptyline Hydrochloride 25 MG Oral Tablet AMITRIPTYLINE HCL 01/05/2020 12:00:00 AM EST tablet 90 TAKE THREE TABLETS BY ADENIKE TH EVERY DAY TAKE THREE TABLETS BY MOUTH EVERY DAY SOLD: 01/05/2020 [facility] 81 mg 01/03/2020 12:00:00 AM EST tablet,chewable 30 CHEW ONE TABLET BY MOUTH EVERY DAY FOR PAIN CHEW ONE TABLET BY MOUTH EVERY DAY FOR PAIN SOLD: 12/13 [facility] 2 mg 12/31/2019 12:00:00 AM EST [...] active Spiriva Resp imat 1.25 MCG/ACT eCW1 ([facility]) Spiriva Respimat 1.25 MCG/ACT Spiriva Respimat 1.25 MCG/ACT 12/29/2019 12:00:00 AM EST 2.0 {puffs} active Spiriva Resp imat 1.25 MCG/ACT eCW1 ([facility]) Spiriva Respimat 1.25 MCG/ACT Spiriva Respimat 1.25 MCG/ACT 12/29/2019 12:00:00 AM EST 2.0 {puffs} suspended Spiriva R espimat 1.25 MCG/ACT eCW1 ([facility]) Spiriva Respimat 1.25 MCG/ACT Spiriva Respimat 1.25 MCG/ACT 12/29/2019 12:00:00 AM EST 2.0 {puffs} active Spiriva Resp imat 1.25 MCG/ACT eCW1 ([facility]) Spiriva Respimat 1.25 MCG/ACT Spiriva Respimat 1.25 MCG/ACT 12/29/2019 12:00:00 AM EST 2.0 {puffs} active Spiriva Resp imat 1.25 MCG/ACT eCW1 ([facility]) Spiriva Respimat 1.25 MCG/ACT Spiriva Respimat 1.25 MCG/ACT 12/29/2019 12:00:00 AM EST 2.0 {puffs} active Spiriva Resp imat 1.25 MCG/ACT eCW1 ([facility]) Spiriva Respimat 1.25 MCG/ACT Spiriva Respimat 1.25 MCG/ACT 12/29/2019 12:00:00 AM EST 2.0 {puffs} active Spiriva Resp imat 1.25 MCG/ACT eCW1 ([facility]) 250 mg 12/29/2019 12:00:00 AM EST tablet 30 TAKE ONE-HALF TABLET BY MOUTH TWICE A DAY TAKE ONE-HALF TABLET BY MOUTH TWICE A DAY SOLD: 12/29/2019 [facility] Spiriva Respimat 1.25 MCG/ACT Spiriva Respimat 1.25 MCG/ACT 12/29/2019 12:00:00 AM EST 2.0 {puffs} active Spiriva Resp imat 1.25 MCG/ACT eCW1 ([facility]) Spiriva Respimat 1.25 MCG/ACT Spiriva Respimat 1.25 MCG/ACT 12/29/2019 12:00:00 AM EST 2.0 {puffs} active Spiriva Resp imat 1.25 MCG/ACT eCW1 ([facility]) 20 mg 12/29/2019 12:00:00 AM EST tablet 90 TAKE ONE TABLET BY MOUTH THREE TIMES A DAY TAKE ONE TABLET BY MOUTH THREE TIMES A DAY SOLD: 01/26/2020 [facility] Spiriva Respimat 1.25 MCG/ACT Spiriva Respimat 1.25 MCG/ACT 12/29/2019 12:00:00 AM EST 2.0 {puffs} active Spiriva Resp imat 1.25 MCG/ACT eCW1 ([facility]) Spiriva Respimat 1.25 MCG/ACT Spiriva Respimat 1.25 MCG/ACT 12/29/2019 12:00:00 AM EST 2.0 {puffs} suspended Spiriva R espimat 1.25 MCG/ACT eCW1 ([facility]) Spiriva Respimat 1.25 MCG/ACT Spiriva Respimat 1.25 MCG/ACT 12/29/2019 12:00:00 AM EST 2.0 {puffs} suspended Spiriva R espimat 1.25 MCG/ACT eCW1 ([facility]) Spiriva Respimat 1.25 MCG/ACT Spiriva Respimat 1.25 MCG/ACT 12/29/2019 12:00:00 AM EST 2.0 {puffs} active Spiriva Resp imat 1.25 MCG/ACT eCW1 ([facility]) Spiriva Respimat 1.25 MCG/ACT Spiriva Respimat 1.25 MCG/ACT 12/29/2019 12:00:00 AM EST 2.0 {puffs} active Spiriva Resp imat 1.25 MCG/ACT eCW1 ([facility]) Spiriva Respimat 1.25 MCG/ACT Spiriva Respimat 1.25 MCG/ACT 12/29/2019 12:00:00 AM EST 2.0 {puffs} active Spiriva Resp imat 1.25 MCG/ACT eCW1 ([facility]) Spiriva Respimat 1.25 MCG/ACT Spiriva Respimat 1.25 MCG/ACT 12/29/2019 12:00:00 AM EST 2.0 {puffs} suspended Spiriva R espimat 1.25 MCG/ACT eCW1 ([facility]) Spiriva Respimat 1.25 MCG/ACT Spiriva Respimat 1.25 MCG/ACT 12/29/2019 12:00:00 AM EST 2.0 {puffs} suspended Spiriva R espimat 1.25 MCG/ACT eCW1 ([facility]) Spiriva Respimat 1.25 MCG/ACT Spiriva Respimat 1.25 MCG/ACT 12/29/2019 12:00:00 AM EST 2.0 {puffs} suspended Spiriva R espimat 1.25 MCG/ACT eCW1 ([facility]) Spiriva Respimat 1.25 MCG/ACT Spiriva Respimat 1.25 MCG/ACT 12/29/2019 12:00:00 AM EST 2.0 {puffs} active Spiriva Resp imat 1.25 MCG/ACT eCW1 ([facility]) Spiriva Respimat 1.25 MCG/ACT Spiriva Respimat 1.25 MCG/ACT 12/29/2019 12:00:00 AM EST 2.0 {puffs} active Spiriva Resp imat 1.25 MCG/ACT eCW1 ([facility]) Spiriva Respimat 1.25 MCG/ACT Spiriva Respimat 1.25 MCG/ACT 12/29/2019 12:00:00 AM EST 2.0 {puffs} active Spiriva Resp imat 1.25 MCG/ACT eCW1 ([facility]) Spiriva Respimat 1.25 MCG/ACT Spiriva Respimat 1.25 MCG/ACT 12/29/2019 12:00:00 AM EST 2.0 {puffs} active Spiriva Resp imat 1.25 MCG/ACT eCW1 ([facility]) Spiriva Respimat 1.25 MCG/ACT Spiriva Respimat 1.25 MCG/ACT 12/29/2019 12:00:00 AM EST 2.0 {puffs} active Spiriva Resp imat 1.25 MCG/ACT eCW1 ([facility]) Spiriva Respimat 1.25 MCG/ACT Spiriva Respimat 1.25 MCG/ACT 12/29/2019 12:00:00 AM EST 2.0 {puffs} active Spiriva Resp imat 1.25 MCG/ACT eCW1 ([facility]) Spiriva Respimat 1.25 MCG/ACT Spiriva Respimat 1.25 MCG/ACT 12/29/2019 12:00:00 AM EST 2.0 {puffs} suspended Spiriva R espimat 1.25 MCG/ACT eCW1 ([facility]) Spiriva Respimat 1.25 MCG/ACT Spiriva Respimat 1.25 MCG/ACT 12/29/2019 12:00:00 AM EST 2.0 {puffs} active Spiriva Resp imat 1.25 MCG/ACT eCW1 ([facility]) Spiriva Respimat 1.25 MCG/ACT Spiriva Respimat 1.25 MCG/ACT 12/29/2019 12:00:00 AM EST 2.0 {puffs} active Spiriva Resp imat 1.25 MCG/ACT eCW1 ([facility]) 20 mg 12/29/2019 12:00:00 AM EST tablet 90 TAKE ONE TABLET BY MOUTH THREE TIMES A DAY TAKE ONE TABLET BY MOUTH THREE TIMES A DAY SOLD: 12/30/2019 [facility] Spiriva Respimat 1.25 MCG/ACT Spiriva Respimat 1.25 MCG/ACT 12/29/2019 12:00:00 AM EST 2.0 {puffs} active Spiriva Resp imat 1.25 MCG/ACT eCW1 ([facility]) Spiriva Respimat 1.25 MCG/ACT Spiriva Respimat 1.25 MCG/ACT 12/29/2019 12:00:00 AM EST 2.0 {puffs} active Spiriva Resp imat 1.25 MCG/ACT eCW1 ([facility]) Spiriva Respimat 1.25 MCG/ACT Spiriva Respimat 1.25 MCG/ACT 12/29/2019 12:00:00 AM EST 2.0 {puffs} active Spiriva Resp imat 1.25 MCG/ACT eCW1 ([facility]) Spiriva Respimat 1.25 MCG/ACT Spiriva Respimat 1.25 MCG/ACT 12/29/2019 12:00:00 AM EST 2.0 {puffs} suspended Spiriva R espimat 1.25 MCG/ACT eCW1 ([facility]) Spiriva Respimat 1.25 MCG/ACT Spiriva Respimat 1.25 MCG/ACT 12/29/2019 12:00:00 AM EST 2.0 {puffs} active Spiriva Resp imat 1.25 MCG/ACT eCW1 ([facility]) Spiriva Respimat 1.25 MCG/ACT Spiriva Respimat 1.25 MCG/ACT 12/29/2019 12:00:00 AM EST 2.0 {puffs} active Spiriva Resp imat 1.25 MCG/ACT eCW1 ([facility]) Spiriva Respimat 1.25 MCG/ACT Spiriva Respimat 1.25 MCG/ACT 12/29/2019 12:00:00 AM EST 2.0 {puffs} suspended Spiriva R espimat 1.25 MCG/ACT eCW1 ([facility]) Spiriva Respimat 1.25 MCG/ACT Spiriva Respimat 1.25 MCG/ACT 12/29/2019 12:00:00 AM EST 2.0 {puffs} active Spiriva Resp imat 1.25 MCG/ACT eCW1 ([facility]) Spiriva Respimat 1.25 MCG/ACT Spiriva Respimat 1.25 MCG/ACT 12/29/2019 12:00:00 AM EST 2.0 {puffs} active Spiriva Resp imat 1.25 MCG/ACT eCW1 ([facility]) 2 mg 12/25/2019 12:00:00 AM EST tablet 30 TAKE ONE TABLET BY MOUTH THREE TIMES A DAY NEEDED FOR ANXIETY MAXIMUM DAILY DOSE = 3 TABLETS TAKE ONE TABLET BY MOUTH THREE TIMES A DAY NEEDED FOR ANXIETY MAXIMUM DAILY DOSE = 3 TABLETS SOLD: 12/25/2019 [facility] 20-100 mcg/actuation 12/23/2019 12:00:00 AM [...] 1.0 {tablet_on_an_empty_stomach} active Sucralfate 1 GM eCW1 ([facility]) Acetaminophen 325 MG / Oxycodone Hydroch loride 10 MG Oral Tablet [Percocet] Percocet 10-325 MG Percocet 10-325 MG 12/22/2019 12:00:00 AM EST 1.0 {tablet_as_needed} active Percocet 10-3 25 MG eCW1 ([facility]) Acetaminophen 325 MG / Oxycodone Hydroch loride 10 MG Oral Tablet [Percocet] Percocet 10-325 MG Percocet 10-325 MG 12/22/2019 12:00:00 AM EST 1.0 {tablet_as_needed} active Percocet 10-3 25 MG eCW1 ([facility]) Acetaminophen 325 MG / Oxycodone Hydroch loride 10 MG Oral Tablet [Percocet] Percocet 10-325 MG Percocet 10-325 MG 12/22/2019 12:00:00 AM EST 1.0 {tablet_as_needed} active Percocet 10-3 25 MG eCW1 ([facility]) Acetaminophen 325 MG / Oxycodone Hydroch loride 10 MG Oral Tablet [Percocet] Percocet 10-325 MG Percocet 10-325 MG 12/22/2019 12:00:00 AM EST 1.0 {tablet_as_needed} active Percocet 10-3 25 MG eCW1 ([facility]) Omeprazole 40 MG Delayed Release Oral Capsule Omeprazole 40 MG 12/22/2019 12:00:00 AM EST active Omeprazo le 40 MG eCW1 ([facility]) Acetaminophen 325 MG / Oxycodone Hydroch loride 10 MG Oral Tablet [Percocet] Percocet 10-325 MG Percocet 10-325 MG 12/22/2019 12:00:00 AM EST 1.0 {tablet_as_needed} active Percocet 10-3 25 MG eCW1 ([facility]) Omeprazole 40 MG Delayed Release Oral Capsule Omeprazole 40 MG 12/22/2019 12:00:00 AM EST active Omeprazo le 40 MG eCW1 ([facility]) Acetaminophen 325 MG / Oxycodone Hydroch loride 10 MG Oral Tablet [Percocet] Percocet 10-325 MG Percocet 10-325 MG 12/22/2019 12:00:00 AM EST 1.0 {tablet_as_needed} active Percocet 10-3 25 MG eCW1 ([facility]) Sucralfate 1000 MG Oral Tablet Sucralfate 1 GM Sucralfate 1 GM 12/22/2019 12:00:00 AM EST 1.0 {tablet_on_an_empty_stomach} active Sucralfate 1 GM W1 ([facility]) Sucralfate 1000 MG Oral Tablet Sucralfate 1 GM Sucralfate 1 GM 12/22/2019 12:00:00 AM EST 1.0 {tablet_on_an_empty_stomach} active Sucralfate 1 GM eCW1 ([facility]) Omeprazole 40 MG Delayed Release Oral Capsule Omeprazole 40 MG 12/22/2019 12:00:00 AM EST active Omeprazo le 40 MG [facility]1 ([facility]) Sucralfate 1000 MG Oral Tablet Sucralfate 1 GM Sucralfate 1 GM 12/22/2019 12:00:00 AM EST 1.0 {tablet_on_an_empty_stomach} active Sucralfate 1 GM W1 ([facility]) Sucralfate 1000 MG Oral Tablet Sucralfate 1 GM Sucralfate 1 12/22/2019 12:00:00 AM EST 1.0 {tablet_on_an_empty_stomach} active Sucralfate 1 GM eCW1 ([facility]) Sucralfate 1000 MG Oral Tablet Sucralfate 1 GM Sucralfate 1 GM 12/22/2019 12:00:00 AM EST 1.0 {tablet_on_an_empty_stomach} active Sucralfate 1 GM eCW1 ([facility]) Acetaminophen 325 MG / Oxycodone Hydroch loride 10 MG Oral Tablet [Percocet] Percocet 10-325 MG Percocet 10-325 MG 12/22/2019 12:00:00 AM EST 1.0 {tablet_as_needed} active Percocet 10-3 25 MG eCW1 ([facility]) Acetaminophen 325 MG / Oxycodone Hydroch loride 10 MG Oral Tablet [Percocet] Percocet 10-325 MG Percocet 10-325 MG 12/22/2019 12:00:00 AM EST 1.0 {tablet_as_needed} active Percocet 10-3 25 MG eCW1 ([facility]) Omeprazole 40 MG Delayed Release Oral Capsule Omeprazole 40 MG 12/22/2019 12:00:00 AM EST active Omeprazo le 40 MG eCW1 ([facility]) Sucralfate 1000 MG Oral Tablet Sucralfate 1 GM Sucralfate 1 GM 12/22/2019 12:00:00 AM EST 1.0 {tablet_on_an_empty_stomach} active Sucralfate 1 GM eCW1 ([facility]) Sucralfate 1000 MG Oral Tablet Sucralfate 1 GM Sucralfate 1 GM 12/22/2019 12:00:00 AM EST 1.0 {tablet_on_an_empty_stomach} active Sucralfate 1 GM eCW1 ([facility]) Omeprazole 40 MG Delayed Release Oral Capsule Omeprazole 40 MG 12/22/2019 12:00:00 AM EST active Omeprazo le 40 MG eCW1 ([facility]) Acetaminophen 325 MG / Oxycodone Hydroch loride 10 MG Oral Tablet [Percocet] Percocet 10-325 MG Percocet 10-325 MG 12/22/2019 12:00:00 AM EST 1.0 {tablet_as_needed} active Percocet 10-3 25 MG eCW1 ([facility]) Omeprazole 40 MG Delayed Release Oral Capsule Omeprazole 40 MG 12/22/2019 12:00:00 AM EST active Omeprazo le 40 MG eCW1 ([facility]) Omeprazole 40 MG Delayed Release Oral Capsule Omeprazole 40 MG 12/22/2019 12:00:00 AM EST active Omeprazo le 40 MG eCW1 ([facility]) Sucralfate 1000 MG Oral Tablet Sucralfate 1 GM Sucralfate 1 GM 12/22/2019 12:00:00 AM EST 1.0 {tablet_on_an_empty_stomach} active Sucralfate 1 GM eCW1 ([facility]) Sucralfate 1000 MG Oral Tablet Sucralfate 1 GM Sucralfate 1 GM 12/22/2019 12:00:00 AM EST 1.0 {tablet_on_an_empty_stomach} active Sucralfate 1 GM eCW1 ([facility]) Acetaminophen 325 MG / Oxycodone Hydroch loride 10 MG Oral Tablet [Percocet] Percocet 10-325 MG Percocet 10-325 MG 12/22/2019 12:00:00 AM EST 1.0 {tablet_as_needed} active Percocet 10-3 25 MG eCW1 ([facility]) Acetaminophen 325 MG / Oxycodone Hydroch loride 10 MG Oral Tablet [Percocet] Percocet 10-325 MG Percocet 10-325 MG 12/22/2019 12:00:00 AM EST 1.0 {tablet_as_needed} active Percocet 10-3 25 MG eCW1 ([facility]) Omeprazole 40 MG Delayed Release Oral Capsule Omeprazole 40 MG 12/22/2019 12:00:00 AM EST active Omeprazo le 40 MG eCW1 ([facility]) 40 mg 12/22/2019 12:00:00 AM EST capsule,delayed release (DR/EC) 30 TAKE 1 CAPSULE BY MOUTH 30 MINS. BEFORE MORNING MEAL TAKE 1 CAPSULE BY MOUTH 30 MINS. BEFORE MORNING MEAL SOLD: 12/22/2019 [facility] Omeprazole 40 MG Delayed Release Oral Capsule Omeprazole 40 MG 12/22/2019 12:00:00 AM EST active Omeprazo le 40 MG eCW1 ([facility]) Omeprazole 40 MG Delayed Release Oral Capsule Omeprazole 40 MG 12/22/2019 12:00:00 AM EST active Omeprazo le 40 MG eCW1 ([facility]) Sucralfate 1000 MG Oral Tablet Sucralfate 1 GM Sucralfate 1 GM 12/22/2019 12:00:00 AM EST 1.0 {tablet_on_an_empty_stomach} active Sucralfate 1 GM eCW1 ([facility]) Omeprazole 40 MG Delayed Release Oral Capsule Omeprazole 40 MG 12/22/2019 12:00:00 AM EST active Omeprazo le 40 MG eCW1 ([facility]) Acetaminophen 325 MG / Oxycodone Hydroch loride 10 MG Oral Tablet [Percocet] Percocet 10-325 MG Percocet 10-325 MG 12/22/2019 12:00:00 AM EST 1.0 {tablet_as_needed} active Percocet 10-3 25 MG eCW1 ([facility]) Sucralfate 1000 MG Oral Tablet Sucralfate 1 GM Sucralfate 1 GM 12/22/2019 12:00:00 AM EST 1.0 {tablet_on_an_empty_stomach} active Sucralfate 1 GM eCW1 ([facility]) 1 gram 12/22/2019 12:00:00 AM EST tablet 90 TAKE 1 TABLET BY MOUTH ON AN EMPTY STOMACH BEFORE EACH MEAL TAKE 1 TABLET BY MOUTH ON AN EMPTY STOMA CH BEFORE EACH MEAL SOLD: 12/22/2019 [facility] Sucralfate 1000 MG Oral Tablet Sucralfate 1 GM Sucralfate 1 GM 12/22/2019 12:00:00 AM EST 1.0 {tablet_on_an_empty_stomach} active Sucralfate 1 GM eCW1 ([facility]) Acetaminophen 325 MG / Oxycodone Hydroch loride 10 MG Oral Tablet [Percocet] Percocet 10-325 MG Percocet 10-325 MG 12/22/2019 12:00:00 AM EST 1.0 {tablet_as_needed} active Percocet 10-3 25 MG eCW1 ([facility]) Sucralfate 1000 MG Oral Tablet Sucralfate 1 GM Sucralfate 1 GM 12/22/2019 12:00:00 AM EST 1.0 {tablet_on_an_empty_stomach} active Sucralfate 1 GM eCW1 ([facility]) Omeprazole 40 MG Delayed Release Oral Capsule Omeprazole 40 MG 12/22/2019 12:00:00 AM EST active Omeprazo le 40 MG eCW1 ([facility]) Sucralfate 1000 MG Oral Tablet Sucralfate 1 GM Sucralfate 1 GM 12/22/2019 12:00:00 AM EST 1.0 {tablet_on_an_empty_stomach} active Sucralfate 1 GM eCW1 ([facility]) Sucralfate 1000 MG Oral Tablet Sucralfate 1 GM Sucralfate 1 GM 12/22/2019 12:00:00 AM EST 1.0 {tablet_on_an_empty_stomach} active Sucralfate 1 GM eCW1 ([facility]) Sucralfate 1000 MG Oral Tablet Sucralfate 1 GM Sucralfate 1 GM 12/22/2019 12:00:00 AM EST 1.0 {tablet_on_an_empty_stomach} active Sucralfate 1 GM eCW1 ([facility]) Acetaminophen 325 MG / Oxycodone Hydroch loride 10 MG Oral Tablet [Percocet] Percocet 10-325 MG Percocet 10-325 MG 12/22/2019 12:00:00 AM EST 1.0 {tablet_as_needed} active Percocet 10-3 25 MG eCW1 ([facility]) Omeprazole 40 MG Delayed Release Oral Capsule Omeprazole 40 MG 12/22/2019 12:00:00 AM EST active Omeprazo le 40 MG eCW1 ([facility]) Sucralfate 1000 MG Oral Tablet Sucralfate 1 GM Sucralfate 1 GM 12/22/2019 12:00:00 AM EST 1.0 {tablet_on_an_empty_stomach} active Sucralfate 1 GM eCW1 ([facility]) Omeprazole 40 MG Delayed Release Oral Capsule Omeprazole 40 MG 12/22/2019 12:00:00 AM EST active Omeprazo le 40 MG eCW1 ([facility]) Omeprazole 40 MG Delayed Release Oral Capsule Omeprazole 40 MG 12/22/2019 12:00:00 AM EST active Omeprazo le 40 MG eCW1 ([facility]) Omeprazole 40 MG Delayed Release Oral Capsule Omeprazole 40 MG 12/22/2019 12:00:00 AM EST active Omeprazo le 40 MG eCW1 ([facility]) Acetaminophen 325 MG / Oxycodone Hydroch loride 10 MG Oral Tablet [Percocet] Percocet 10-325 MG Percocet 10-325 MG 12/22/2019 12:00:00 AM EST 1.0 {tablet_as_needed} active Percocet 10-3 25 MG eCW1 ([facility]) Omeprazole 40 MG Delayed Release Oral Capsule Omeprazole 40 MG 12/22/2019 12:00:00 AM EST active Omeprazo le 40 MG eCW1 ([facility]) Acetaminophen 325 MG / Oxycodone Hydroch loride 10 MG Oral Tablet [Percocet] Percocet 10-325 MG Percocet 10-325 MG 12/22/2019 12:00:00 AM EST 1.0 {tablet_as_needed} active Percocet 10-3 25 MG eCW1 ([facility]) Acetaminophen 325 MG / Oxycodone Hydroch loride 10 MG Oral Tablet [Percocet] Percocet 10-325 MG Percocet 10-325 MG 12/22/2019 12:00:00 AM EST 1.0 {tablet_as_needed} active Percocet 10-3 25 MG eCW1 ([facility]) Acetaminophen 325 MG / Oxycodone Hydroch loride 10 MG Oral Tablet [Percocet] Percocet 10-325 MG Percocet 10-325 MG 12/22/2019 12:00:00 AM EST 1.0 {tablet_as_needed} active Percocet 10-3 25 MG eCW1 ([facility]) Omeprazole 40 MG Delayed Release Oral Capsule Omeprazole 40 MG 12/22/2019 12:00:00 AM EST active Omeprazo le 40 MG eCW1 ([facility]) Sucralfate 1000 MG Oral Tablet Sucralfate 1 GM Sucralfate 1 GM 12/22/2019 12:00:00 AM EST 1.0 {tablet_on_an_empty_stomach} active Sucralfate 1 GM eCW1 ([facility]) Acetaminophen 325 MG / Oxycodone Hydroch loride 10 MG Oral Tablet [Percocet] Percocet 10-325 MG Percocet 10-325 MG 12/22/2019 12:00:00 AM EST 1.0 {tablet_as_needed} active Percocet 10-3 25 MG eCW1 ([facility]) Sucralfate 1000 MG Oral Tablet Sucralfate 1 GM Sucralfate 1 GM 12/22/2019 12:00:00 AM EST 1.0 {tablet_on_an_empty_stomach} active Sucralfate 1 GM eCW1 ([facility]) Omeprazole 40 MG Delayed Release Oral Capsule Omeprazole 40 MG 12/22/2019 12:00:00 AM EST active Omeprazo le 40 MG eCW1 ([facility]) Sucralfate 1000 MG Oral Tablet Sucralfate 1 GM Sucralfate 1 GM 12/22/2019 12:00:00 AM EST 1.0 {tablet_on_an_empty_stomach} active Sucralfate 1 GM eCW1 ([facility]) Omeprazole 40 MG Delayed Release Oral Capsule Omeprazole 40 MG 12/22/2019 12:00:00 AM EST active Omeprazo le 40 MG eCW1 ([facility]) Sucralfate 1000 MG Oral Tablet Sucralfate 1 GM Sucralfate 1 GM 12/22/2019 12:00:00 AM EST 1.0 {tablet_on_an_empty_stomach} active Sucralfate 1 GM eCW1 ([facility]) Omeprazole 40 MG Delayed Release Oral Capsule Omeprazole 40 MG 12/22/2019 12:00:00 AM EST active Omeprazo le 40 MG eCW1 ([facility]) Omeprazole 40 MG Delayed Release Oral Capsule Omeprazole 40 MG 12/22/2019 12:00:00 AM EST active Omeprazo le 40 MG eCW1 ([facility]) Omeprazole 40 MG Delayed Release Oral Capsule Omeprazole 40 MG 12/22/2019 12:00:00 AM EST active Omeprazo le 40 MG eCW1 ([facility]) Omeprazole 40 MG Delayed Release Oral Capsule Omeprazole 40 MG 12/22/2019 12:00:00 AM EST active Omeprazo le 40 MG eCW1 ([facility]) Omeprazole 40 MG Delayed Release Oral Capsule Omeprazole 40 MG 12/22/2019 12:00:00 AM EST active Omeprazo le 40 MG eCW1 ([facility]) Acetaminophen 325 MG / Oxycodone Hydroch loride 10 MG Oral Tablet [Percocet] Percocet 10-325 MG Percocet 10-325 MG 12/22/2019 12:00:00 AM EST 1.0 {tablet_as_needed} active Percocet 10-3 25 MG eCW1 ([facility]) Acetaminophen 325 MG / Oxycodone Hydroch loride 10 MG Oral Tablet [Percocet] Percocet 10-325 MG Percocet 10-325 MG 12/22/2019 12:00:00 AM EST 1.0 {tablet_as_needed} active Percocet 10-3 25 MG eCW1 ([facility]) Sucralfate 1000 MG Oral Tablet Sucralfate 1 GM Sucralfate 1 GM 12/22/2019 12:00:00 AM EST 1.0 {tablet_on_an_empty_stomach} active Sucralfate 1 GM eCW1 ([facility]) Sucralfate 1000 MG Oral Tablet Sucralfate 1 GM Sucralfate 1 GM 12/22/2019 12:00:00 AM EST 1.0 {tablet_on_an_empty_stomach} active Sucralfate 1 GM eCW1 ([facility]) Sucralfate 1000 MG Oral Tablet Sucralfate 1 GM Sucralfate 1 GM 12/22/2019 12:00:00 AM EST 1.0 {tablet_on_an_empty_stomach} active Sucralfate 1 GM eCW1 ([facility]) Omeprazole 40 MG Delayed Release Oral Capsule Omeprazole 40 MG 12/22/2019 12:00:00 AM EST active Omeprazo le 40 MG eCW1 ([facility]) Acetaminophen 325 MG / Oxycodone Hydroch loride 10 MG Oral Tablet [Percocet] Percocet 10-325 MG Percocet 10-325 MG 12/22/2019 12:00:00 AM EST 1.0 {tablet_as_needed} active Percocet 10-3 25 MG eCW1 ([facility]) Sucralfate 1000 MG Oral Tablet Sucralfate 1 GM Sucralfate 1 GM 12/22/2019 12:00:00 AM EST 1.0 {tablet_on_an_empty_stomach} active Sucralfate 1 GM eCW1 ([facility]) Acetaminophen 325 MG / Oxycodone Hydroch loride 10 MG Oral Tablet [Percocet] Percocet 10-325 MG Percocet 10-325 MG 12/22/2019 12:00:00 AM EST 1.0 {tablet_as_needed} active Percocet 10-3 25 MG eCW1 ([facility]) Sucralfate 1000 MG Oral Tablet Sucralfate 1 GM Sucralfate 1 GM 12/22/2019 12:00:00 AM EST 1.0 {tablet_on_an_empty_stomach} active Sucralfate 1 GM eCW1 ([facility]) Omeprazole 40 MG Delayed Release Oral Capsule Omeprazole 40 MG 12/22/2019 12:00:00 AM EST active Omeprazo le 40 MG eCW1 ([facility]) Acetaminophen 325 MG / Oxycodone Hydroch loride 10 MG Oral Tablet [Percocet] Percocet 10-325 MG Percocet 10-325 MG 12/22/2019 12:00:00 AM EST 1.0 {tablet_as_needed} active Percocet 10-3 25 MG eCW1 ([facility]) Omeprazole 40 MG Delayed Release Oral Capsule Omeprazole 40 MG 12/22/2019 12:00:00 AM EST active Omeprazo le 40 MG eCW1 ([facility]) Sucralfate 1000 MG Oral Tablet Sucralfate 1 GM Sucralfate 1 GM 12/22/2019 12:00:00 AM EST 1.0 {tablet_on_an_empty_stomach} active Sucralfate 1 GM eCW1 ([facility]) Sucralfate 1000 MG Oral Tablet Sucralfate 1 GM Sucralfate 1 GM 12/22/2019 12:00:00 AM EST 1.0 {tablet_on_an_empty_stomach} active Sucralfate 1 GM eCW1 ([facility]) Omeprazole 40 MG Delayed Release Oral Capsule Omeprazole 40 MG 12/22/2019 12:00:00 AM EST active Omeprazo le 40 MG eCW1 ([facility]) Omeprazole 40 MG Delayed Release Oral Capsule Omeprazole 40 MG 12/22/2019 12:00:00 AM EST active Omeprazo le 40 MG eCW1 ([facility]) Sucralfate 1000 MG Oral Tablet Sucralfate 1 GM Sucralfate 1 GM 12/22/2019 12:00:00 AM EST 1.0 {tablet_on_an_empty_stomach} active Sucralfate 1 GM eCW1 ([facility]) Omeprazole 40 MG Delayed Release Oral Capsule Omeprazole 40 MG 12/22/2019 12:00:00 AM EST active Omeprazo le 40 MG eCW1 ([facility]) Acetaminophen 325 MG / Oxycodone Hydroch loride 10 MG Oral Tablet [Percocet] Percocet 10-325 MG Percocet 10-325 MG 12/22/2019 12:00:00 AM EST 1.0 {tablet_as_needed} active Percocet 10-3 25 MG eCW1 ([facility]) Sucralfate 1000 MG Oral Tablet Sucralfate 1 GM Sucralfate 1 GM 12/22/2019 12:00:00 AM EST 1.0 {tablet_on_an_empty_stomach} active Sucralfate 1 GM eCW1 ([facility]) Sucralfate 1000 MG Oral Tablet Sucralfate 1 GM Sucralfate 1 GM 12/22/2019 12:00:00 AM EST 1.0 {tablet_on_an_empty_stomach} active Sucralfate 1 GM eCW1 ([facility]) Omeprazole 40 MG Delayed Release Oral Capsule Omeprazole 40 MG 12/22/2019 12:00:00 AM EST active Omeprazo le 40 MG eCW1 ([facility]) Sucralfate 1000 MG Oral Tablet Sucralfate 1 GM Sucralfate 1 GM 12/22/2019 12:00:00 AM EST 1.0 {tablet_on_an_empty_stomach} active Sucralfate 1 GM eCW1 ([facility]) Sucralfate 1000 MG Oral Tablet Sucralfate 1 GM Sucralfate 1 GM 12/22/2019 12:00:00 AM EST 1.0 {tablet_on_an_empty_stomach} active Sucralfate 1 GM eCW1 ([facility]) Omeprazole 40 MG Delayed Release Oral Capsule Omeprazole 40 MG 12/22/2019 12:00:00 AM EST active Omeprazo le 40 MG eCW1 ([facility]) Omeprazole 40 MG Delayed Release Oral Capsule Omeprazole 40 MG 12/22/2019 12:00:00 AM EST active Omeprazo le 40 MG eCW1 ([facility]) Omeprazole 40 MG Delayed Release Oral Capsule Omeprazole 40 MG 12/22/2019 12:00:00 AM EST active Omeprazo le 40 MG eCW1 ([facility]) Sucralfate 1000 MG Oral Tablet Sucralfate 1 GM Sucralfate 1 GM 12/22/2019 12:00:00 AM EST 1.0 {tablet_on_an_empty_stomach} active Sucralfate 1 GM eCW1 ([facility]) Sucralfate 1000 MG Oral Tablet Sucralfate 1 GM Sucralfate 1 GM 12/22/2019 12:00:00 AM EST 1.0 {tablet_on_an_empty_stomach} active Sucralfate 1 GM eCW1 ([facility]) Omeprazole 40 MG Delayed Release Oral Capsule Omeprazole 40 MG 12/22/2019 12:00:00 AM EST active Omeprazo le 40 MG eCW1 ([facility]) Sucralfate 1000 MG Oral Tablet Sucralfate 1 GM Sucralfate 1 GM 12/22/2019 12:00:00 AM EST 1.0 {tablet_on_an_empty_stomach} active Sucralfate 1 GM eCW1 ([facility]) Omeprazole 40 MG Delayed Release Oral Capsule Omeprazole 40 MG 12/22/2019 12:00:00 AM EST active Omeprazo le 40 MG eCW1 ([facility]) Omeprazole 40 MG Delayed Release Oral Capsule Omeprazole 40 MG 12/22/2019 12:00:00 AM EST active Omeprazo le 40 MG eCW1 ([facility]) Omeprazole 40 MG Delayed Release Oral Capsule Omeprazole 40 MG 12/22/2019 12:00:00 AM EST active Omeprazo le 40 MG eCW1 ([facility]) Acetaminophen 325 MG / Oxycodone Hydroch loride 10 MG Oral Tablet [Percocet] Percocet 10-325 MG Percocet 10-325 MG 12/22/2019 12:00:00 AM EST 1.0 {tablet_as_needed} active Percocet 10-3 25 MG eCW1 ([facility]) Omeprazole 40 MG Delayed Release Oral Capsule Omeprazole 40 MG 12/22/2019 12:00:00 AM EST active Omeprazo le 40 MG eCW1 ([facility]) Acetaminophen 325 MG / Oxycodone Hydroch loride 10 MG Oral Tablet [Percocet] Percocet 10-325 MG Percocet 10-325 MG 12/22/2019 12:00:00 AM EST 1.0 {tablet_as_needed} active Percocet 10-3 25 MG eCW1 ([facility]) Omeprazole 40 MG Delayed Release Oral Capsule Omeprazole 40 MG 12/22/2019 12:00:00 AM EST active Omeprazo le 40 MG eCW1 ([facility]) Acetaminophen 325 MG / Oxycodone Hydroch loride 10 MG Oral Tablet [Percocet] Percocet 10-325 MG Percocet 10-325 MG 12/22/2019 12:00:00 AM EST 1.0 {tablet_as_needed} active Percocet 10-3 25 MG eCW1 ([facility]) Sucralfate 1000 MG Oral Tablet Sucralfate 1 GM Sucralfate 1 GM 12/22/2019 12:00:00 AM EST 1.0 {tablet_on_an_empty_stomach} active Sucralfate 1 GM eCW1 ([facility]) Omeprazole 40 MG Delayed Release Oral Capsule Omeprazole 40 MG 12/22/2019 12:00:00 AM EST active Omeprazo le 40 MG eCW1 ([facility]) Omeprazole 40 MG Delayed Release Oral Capsule Omeprazole 40 MG 12/22/2019 12:00:00 AM EST active Omeprazo le 40 MG eCW1 ([facility]) Sucralfate 1000 MG Oral Tablet Sucralfate 1 GM Sucralfate 1 GM 12/22/2019 12:00:00 AM EST 1.0 {tablet_on_an_empty_stomach} active Sucralfate 1 GM eCW1 ([facility]) Omeprazole 40 MG Delayed Release Oral Capsule Omeprazole 40 MG 12/22/2019 12:00:00 AM EST active Omeprazo le 40 MG eCW1 ([facility]) Omeprazole 40 MG Delayed Release Oral Capsule Omeprazole 40 MG 12/22/2019 12:00:00 AM EST active Omeprazo le 40 MG eCW1 ([facility]) Acetaminophen 325 MG / Oxycodone Hydroch loride 10 MG Oral Tablet [Percocet] Percocet 10-325 MG Percocet 10-325 MG 12/22/2019 12:00:00 AM EST 1.0 {tablet_as_needed} active Percocet 10-3 25 MG eCW1 ([facility]) Acetaminophen 325 MG / Oxycodone Hydroch loride 10 MG Oral Tablet [Percocet] Percocet 10-325 MG Percocet 10-325 MG 12/22/2019 12:00:00 AM EST 1.0 {tablet_as_needed} active Percocet 10-3 25 MG eCW1 ([facility]) Acetaminophen 325 MG / Oxycodone Hydroch loride 10 MG Oral Tablet [Percocet] Percocet 10-325 MG Percocet 10-325 MG 12/22/2019 12:00:00 AM EST 1.0 {tablet_as_needed} active Percocet 10-3 25 MG eCW1 ([facility]) Omeprazole 40 MG Delayed Release Oral Capsule Omeprazole 40 MG 12/22/2019 12:00:00 AM EST active Omeprazo le 40 MG eCW1 ([facility]) Sucralfate 1000 MG Oral Tablet Sucralfate 1 GM Sucralfate 1 GM 12/22/2019 12:00:00 AM EST 1.0 {tablet_on_an_empty_stomach} active Sucralfate 1 GM eCW1 ([facility]) Sucralfate 1000 MG Oral Tablet Sucralfate 1 GM Sucralfate 1 GM 12/22/2019 12:00:00 AM EST 1.0 {tablet_on_an_empty_stomach} active Sucralfate 1 GM eCW1 ([facility]) Sucralfate 1000 MG Oral Tablet Sucralfate 1 GM Sucralfate 1 GM 12/22/2019 12:00:00 AM EST 1.0 {tablet_on_an_empty_stomach} active Sucralfate 1 GM eCW1 ([facility]) Sucralfate 1000 MG Oral Tablet Sucralfate 1 GM Sucralfate 1 GM 12/22/2019 12:00:00 AM EST 1.0 {tablet_on_an_empty_stomach} active Sucralfate 1 GM eCW1 ([facility]) 10-325 mg 12/22/2019 12:00:00 AM EST tablet [...] {tablet_as_needed} active Percocet 10-3 25 MG eCW1 ([facility]) Omeprazole 40 MG Delayed Release Oral Capsule Omeprazole 40 MG 12/22/2019 12:00:00 AM EST active Omeprazo le 40 MG eCW1 ([facility]) Acetaminophen 325 MG / Oxycodone Hydroch loride 10 MG Oral Tablet [Percocet] Percocet 10-325 MG Percocet 10-325 MG 12/22/2019 12:00:00 AM EST 1.0 {tablet_as_needed} active Percocet 10-3 25 MG eCW1 ([facility]) Omeprazole 40 MG Delayed Release Oral Capsule Omeprazole 40 MG 12/22/2019 12:00:00 AM EST active Omeprazo le 40 MG eCW1 ([facility]) Acetaminophen 325 MG / Oxycodone Hydroch loride 10 MG Oral Tablet [Percocet] Percocet 10-325 MG Percocet 10-325 MG 12/22/2019 12:00:00 AM EST 1.0 {tablet_as_needed} active Percocet 10-3 25 MG eCW1 ([facility]) Omeprazole 40 MG Delayed Release Oral Capsule Omeprazole 40 MG 12/22/2019 12:00:00 AM EST active Omeprazo le 40 MG eCW1 ([facility]) Omeprazole 40 MG Delayed Release Oral Capsule Omeprazole 40 MG 12/22/2019 12:00:00 AM EST active Omeprazo le [address] [facility] ([facility]) Sucralfate 1000 MG Oral Tablet Sucralfate 1 GM Sucralfate 1 12/22/2019 12:00:00 AM EST 1.0 {tablet_on_an_empty_stomach} active Sucralfate 1 GM W1 ([facility]) Sucralfate 1000 MG Oral Tablet Sucralfate 1 GM Sucralfate 1 12/22/2019 12:00:00 AM EST 1.0 {tablet_on_an_empty_stomach} active Sucralfate 1 GM W1 ([facility]) Sucralfate 1000 MG Oral Tablet Sucralfate 1 GM Sucralfate 1 12/22/2019 12:00:00 AM EST 1.0 {tablet_on_an_empty_stomach} active Sucralfate 1 GM W ([facility]) Acetaminophen 325 MG / Oxycodone Hydroch loride 10 MG Oral Tablet [Percocet] Percocet 10-325 MG Percocet 10-325 MG 12/22/2019 12:00:00 AM EST 1.0 {tablet_as_needed} active Percocet 10-[address] [facility] ([facility]) Sucralfate 1000 MG Oral Tablet Sucralfate 1 GM Sucralfate 1 12/22/2019 12:00:00 AM EST 1.0 {tablet_on_an_empty_stomach} active Sucralfate 1 GM W1 ([facility]) Sucralfate 1000 MG Oral Tablet Sucralfate 1 GM Sucralfate 1 12/22/2019 12:00:00 AM EST 1.0 {tablet_on_an_empty_stomach} active Sucralfate 1 GM eCW1 ([facility]) Sucralfate 1000 MG Oral Tablet Sucralfate 1 GM Sucralfate 1 GM 12/22/2019 12:00:00 AM EST 1.0 {tablet_on_an_empty_stomach} active Sucralfate 1 GM eCW1 ([facility]) Omeprazole 40 MG Delayed Release Oral Capsule Omeprazole 40 MG 12/22/2019 12:00:00 AM EST active Omeprazo le 40 MG eCW1 ([facility]) Sucralfate 1000 MG Oral Tablet Sucralfate 1 GM Sucralfate 1 GM 12/22/2019 12:00:00 AM EST 1.0 {tablet_on_an_empty_stomach} active Sucralfate 1 GM eCW1 ([facility]) Sucralfate 1000 MG Oral Tablet Sucralfate 1 GM Sucralfate 1 GM 12/22/2019 12:00:00 AM EST 1.0 {tablet_on_an_empty_stomach} active Sucralfate 1 GM eCW1 ([facility]) Amlodipine 5 MG / valsartan 160 MG [...] {tablet_as_needed} active Percocet 10-3 25 MG eCW1 ([facility]) Acetaminophen 325 MG / Oxycodone Hydroch loride 10 MG Oral Tablet [Percocet] Percocet 10-325 MG Percocet 10-325 MG 11/24/2019 12:00:00 AM EDT 1.0 {tablet_as_needed} active Percocet 10-3 25 MG eCW1 ([facility]) Acetaminophen 325 MG / Oxycodone Hydroch loride 10 MG Oral Tablet [Percocet] Percocet 10-325 MG Percocet 10-325 MG 11/24/2019 12:00:00 AM EDT 1.0 {tablet_as_needed} active Percocet 10-3 25 MG eCW1 ([facility]) Acetaminophen 325 MG / Oxycodone Hydroch loride 10 MG Oral Tablet [Percocet] Percocet 10-325 MG Percocet 10-325 MG 11/24/2019 12:00:00 AM EDT 1.0 {tablet_as_needed} active Percocet 10-3 25 MG eCW1 ([facility]) Acetaminophen 325 MG / Oxycodone Hydroch loride 10 MG Oral Tablet [Percocet] Percocet 10-325 MG Percocet 10-325 MG 11/24/2019 12:00:00 AM EDT 1.0 {tablet_as_needed} active Percocet 10-3 25 MG eCW1 ([facility]) 10-325 mg 11/24/2019 12:00:00 AM EDT tablet [...] {tablet_as_needed} active Percocet 10-3 25 MG eCW1 ([facility]) Acetaminophen 325 MG / Oxycodone Hydroch loride 10 MG Oral Tablet [Percocet] Percocet 10-325 MG Percocet 10-325 MG 11/24/2019 12:00:00 AM EDT 1.0 {tablet_as_needed} active Percocet 10-3 25 MG eCW1 ([facility]) Acetaminophen 325 MG / Oxycodone Hydroch loride 10 MG Oral Tablet [Percocet] Percocet 10-325 MG Percocet 10-325 MG 11/24/2019 12:00:00 AM EDT 1.0 {tablet_as_needed} active Percocet 10-3 25 MG eCW1 ([facility]) Acetaminophen 325 MG / Oxycodone Hydroch loride 10 MG Oral Tablet [Percocet] Percocet 10-325 MG Percocet 10-325 MG 11/24/2019 12:00:00 AM EDT 1.0 {tablet_as_needed} active Percocet 10-3 25 MG eCW1 ([facility]) Acetaminophen 325 MG / Oxycodone Hydroch loride 10 MG Oral Tablet [Percocet] Percocet 10-325 MG Percocet 10-325 MG 11/24/2019 12:00:00 AM EDT 1.0 {tablet_as_needed} active Percocet 10-3 25 MG eCW1 ([facility]) Acetaminophen 325 MG / Oxycodone Hydroch loride 10 MG Oral Tablet [Percocet] Percocet 10-325 MG Percocet 10-325 MG 11/24/2019 12:00:00 AM EDT 1.0 {tablet_as_needed} active Percocet 10-3 25 MG eCW1 ([facility]) Acetaminophen 325 MG / Oxycodone Hydroch loride 10 MG Oral Tablet [Percocet] Percocet 10-325 MG Percocet 10-325 MG 11/24/2019 12:00:00 AM EDT 1.0 {tablet_as_needed} active Percocet 10-3 25 MG eCW1 ([facility]) Acetaminophen 325 MG / Oxycodone Hydroch loride 10 MG Oral Tablet [Percocet] Percocet 10-325 MG Percocet 10-325 MG 11/24/2019 12:00:00 AM EDT 1.0 {tablet_as_needed} active Percocet 10-3 25 MG eCW1 ([facility]) Acetaminophen 325 MG / Oxycodone Hydroch loride 10 MG Oral Tablet [Percocet] Percocet 10-325 MG Percocet 10-325 MG 11/24/2019 12:00:00 AM EDT 1.0 {tablet_as_needed} active Percocet 10-3 25 MG eCW1 ([facility]) Acetaminophen 325 MG / Oxycodone Hydroch loride 10 MG Oral Tablet [Percocet] Percocet 10-325 MG Percocet 10-325 MG 11/24/2019 12:00:00 AM EDT 1.0 {tablet_as_needed} active Percocet 10-3 25 MG eCW1 ([facility]) Acetaminophen 325 MG / Oxycodone Hydroch loride 10 MG Oral Tablet [Percocet] Percocet 10-325 MG Percocet 10-325 MG 11/24/2019 12:00:00 AM EDT 1.0 {tablet_as_needed} active Percocet 10-3 25 MG eCW1 ([facility]) Acetaminophen 325 MG / Oxycodone Hydroch loride 10 MG Oral Tablet [Percocet] Percocet 10-325 MG Percocet 10-325 MG 11/24/2019 12:00:00 AM EDT 1.0 {tablet_as_needed} active Percocet 10-3 25 MG eCW1 ([facility]) Acetaminophen 325 MG / Oxycodone Hydroch loride 10 MG Oral Tablet [Percocet] Percocet 10-325 MG Percocet 10-325 MG 11/24/2019 12:00:00 AM EDT 1.0 {tablet_as_needed} active Percocet 10-3 25 MG eCW1 ([facility]) atorvastatin 40 MG Oral Tablet ATORVASTATIN CALCIUM 11/18/2019 1 2:00:00 AM EDT tablet 90 TAKE ONE TABLET BY MOUTH EVERY D AY TAKE ONE TABLET BY MOUTH EVERY DAY SOLD: 11/19/2019 [facility] 2 mg 11/12/2019 12:00:00 AM EDT tablet 60 TAKE ONE TABLET BY MOUTH TWICE A DAY NEEDED, MAXIMUM DAILY DOSE = 2 TABLETS TAKE ONE TABLET BY MOUTH TWICE A DAY NEEDED, MAXIMUM DAILY DOSE = 2 TABLETS SOLD: 11/12/2019 [facility] Diazepam 2 MG Oral Tablet Diazepam 2 MG 11/10/2019 12:00:00 AM EDT 1.0 {tablet_as_needed} active Diazepam 2 MG eCW1 ([facility]) Diazepam 2 MG Oral Tablet Diazepam 2 MG 11/10/2019 12:00:00 AM EDT active Diazepam 2 MG eCW1 ([facility]) Diazepam 2 MG Oral Tablet Diazepam 2 MG 11/10/2019 12:00:00 AM EDT 1.0 {tablet_as_needed} active Diazepam 2 MG eCW1 ([facility]) Diazepam 2 MG Oral Tablet Diazepam 2 MG 11/10/2019 12:00:00 AM EDT 1.0 {tablet_as_needed} active Diazepam 2 MG eCW1 ([facility]) Diazepam 2 MG Oral Tablet Diazepam 2 MG 11/10/2019 12:00:00 AM EDT 1.0 {tablet_as_needed} active Diazepam 2 MG eCW1 ([facility]) Diazepam 2 MG Oral Tablet Diazepam 2 MG 11/10/2019 12:00:00 AM EDT active Diazepam 2 MG eCW1 ([facility]) Diazepam 2 MG Oral Tablet Diazepam 2 MG 11/10/2019 12:00:00 AM EDT 1.0 {tablet_as_needed} active Diazepam 2 MG eCW1 ([facility]) Diazepam 2 MG Oral Tablet Diazepam 2 MG 11/10/2019 12:00:00 AM EDT active Diazepam 2 MG eCW1 ([facility]) Diazepam 2 MG Oral Tablet Diazepam 2 MG 11/10/2019 12:00:00 AM EDT active Diazepam 2 MG eCW1 ([facility]) Diazepam 2 MG Oral Tablet Diazepam 2 MG 11/10/2019 12:00:00 AM EDT 1.0 {tablet_as_needed} active Diazepam 2 MG eCW1 ([facility]) Diazepam 2 MG Oral Tablet Diazepam 2 MG 11/10/2019 12:00:00 AM EDT 1.0 {tablet_as_needed} active Diazepam 2 MG eCW1 ([facility]) Diazepam 2 MG Oral Tablet Diazepam 2 MG 11/10/2019 12:00:00 AM EDT active Diazepam 2 MG eCW1 ([facility]) Diazepam 2 MG Oral Tablet Diazepam 2 MG 11/10/2019 12:00:00 AM EDT active Diazepam 2 MG eCW1 ([facility]) Diazepam 2 MG Oral Tablet Diazepam 2 MG 11/10/2019 12:00:00 AM EDT active Diazepam 2 MG eCW1 ([facility]) Diazepam 2 MG Oral Tablet Diazepam 2 MG 11/10/2019 12:00:00 AM EDT 1.0 {tablet_as_needed} active Diazepam 2 MG eCW1 ([facility]) Diazepam 2 MG Oral Tablet Diazepam 2 MG 11/10/2019 12:00:00 AM EDT active Diazepam 2 MG eCW1 ([facility]) Diazepam 2 MG Oral Tablet Diazepam 2 MG 11/10/2019 12:00:00 AM EDT active Diazepam 2 MG eCW1 ([facility]) Diazepam 2 MG Oral Tablet Diazepam 2 MG 11/10/2019 12:00:00 AM EDT active Diazepam 2 MG eCW1 ([facility]) Diazepam 2 MG Oral Tablet Diazepam 2 MG 11/10/2019 12:00:00 AM EDT active Diazepam 2 MG eCW1 ([facility]) Diazepam 2 MG Oral Tablet Diazepam 2 MG 11/10/2019 12:00:00 AM EDT active Diazepam 2 MG eCW1 ([facility]) Diazepam 2 MG Oral Tablet Diazepam 2 MG 11/10/2019 12:00:00 AM EDT active Diazepam 2 MG eCW1 ([facility]) Diazepam 2 MG Oral Tablet Diazepam 2 MG 11/10/2019 12:00:00 AM EDT active Diazepam 2 MG eCW1 ([facility]) Diazepam 2 MG Oral Tablet Diazepam 2 MG 11/10/2019 12:00:00 AM EDT 1.0 {tablet_as_needed} active Diazepam 2 MG eCW1 ([facility]) Diazepam 2 MG Oral Tablet Diazepam 2 MG 11/10/2019 12:00:00 AM EDT active Diazepam 2 MG eCW1 ([facility]) Diazepam 2 MG Oral Tablet Diazepam 2 MG 11/10/2019 12:00:00 AM EDT active Diazepam 2 MG eCW1 ([facility]) Diazepam 2 MG Oral Tablet Diazepam 2 MG 11/10/2019 12:00:00 AM EDT 1.0 {tablet_as_needed} active Diazepam 2 MG eCW1 ([facility]) Diazepam 2 MG Oral Tablet Diazepam 2 MG 11/10/2019 12:00:00 AM EDT 1.0 {tablet_as_needed} active Diazepam 2 MG eCW1 ([facility]) Diazepam 2 MG Oral Tablet Diazepam 2 MG 11/10/2019 12:00:00 AM EDT active Diazepam 2 MG eCW1 ([facility]) Diazepam 2 MG Oral Tablet Diazepam 2 MG 11/10/2019 12:00:00 AM EDT active Diazepam 2 MG eCW1 ([facility]) Diazepam 2 MG Oral Tablet Diazepam 2 MG 11/10/2019 12:00:00 AM EDT 1.0 {tablet_as_needed} active Diazepam 2 MG eCW1 ([facility]) Diazepam 2 MG Oral Tablet Diazepam 2 MG 11/10/2019 12:00:00 AM EDT active Diazepam 2 MG eCW1 ([facility]) Diazepam 2 MG Oral Tablet Diazepam 2 MG 11/10/2019 12:00:00 AM EDT 1.0 {tablet_as_needed} active Diazepam 2 MG eCW1 ([facility]) Diazepam 2 MG Oral Tablet Diazepam 2 MG 11/10/2019 12:00:00 AM EDT active Diazepam 2 MG eCW1 ([facility]) Diazepam 2 MG Oral Tablet Diazepam 2 MG 11/10/2019 12:00:00 AM EDT 1.0 {tablet_as_needed} active Diazepam 2 MG eCW1 ([facility]) Diazepam 2 MG Oral Tablet Diazepam 2 MG 11/10/2019 12:00:00 AM EDT 1.0 {tablet_as_needed} active Diazepam 2 MG eCW1 ([facility]) Diazepam 2 MG Oral Tablet Diazepam 2 MG 11/10/2019 12:00:00 AM EDT active Diazepam 2 MG eCW1 ([facility]) Diazepam 2 MG Oral Tablet Diazepam 2 MG 11/10/2019 12:00:00 AM EDT active Diazepam 2 MG eCW1 ([facility]) Diazepam 2 MG Oral Tablet Diazepam 2 MG 11/10/2019 12:00:00 AM EDT 1.0 {tablet_as_needed} active Diazepam 2 MG eCW1 ([facility]) Diazepam 2 MG Oral Tablet Diazepam 2 MG 11/10/2019 12:00:00 AM EDT active Diazepam 2 MG eCW1 ([facility]) Diazepam 2 MG Oral Tablet Diazepam 2 MG 11/10/2019 12:00:00 AM EDT 1.0 {tablet_as_needed} active Diazepam 2 MG eCW1 ([facility]) Diazepam 2 MG Oral Tablet Diazepam 2 MG 11/10/2019 12:00:00 AM EDT 1.0 {tablet_as_needed} active Diazepam 2 MG eCW1 ([facility]) Diazepam 2 MG Oral Tablet Diazepam 2 MG 11/10/2019 12:00:00 AM EDT 1.0 {tablet_as_needed} active Diazepam 2 MG eCW1 ([facility]) Diazepam 2 MG Oral Tablet Diazepam 2 MG 11/10/2019 12:00:00 AM EDT 1.0 {tablet_as_needed} active Diazepam 2 MG eCW1 ([facility]) Diazepam 2 MG Oral Tablet Diazepam 2 MG 11/10/2019 12:00:00 AM EDT active Diazepam 2 MG eCW1 ([facility]) Diazepam 2 MG Oral Tablet Diazepam 2 MG 11/10/2019 12:00:00 AM EDT active Diazepam 2 MG eCW1 ([facility]) Diazepam 2 MG Oral Tablet Diazepam 2 MG 11/10/2019 12:00:00 AM EDT active Diazepam 2 MG eCW1 ([facility]) Diazepam 2 MG Oral Tablet Diazepam 2 MG 11/10/2019 12:00:00 AM EDT active Diazepam 2 MG eCW1 ([facility]) Diazepam 2 MG Oral Tablet Diazepam 2 MG 11/10/2019 12:00:00 AM EDT active Diazepam 2 MG eCW1 ([facility]) Diazepam 2 MG Oral Tablet Diazepam 2 MG 11/10/2019 12:00:00 AM EDT 1.0 {tablet_as_needed} active Diazepam 2 MG eCW1 ([facility]) Diazepam 2 MG Oral Tablet Diazepam 2 MG 11/10/2019 12:00:00 AM EDT active Diazepam 2 MG eCW1 ([facility]) Diazepam 2 MG Oral Tablet Diazepam 2 MG 11/10/2019 12:00:00 AM EDT active Diazepam 2 MG eCW1 ([facility]) Diazepam 2 MG Oral Tablet Diazepam 2 MG 11/10/2019 12:00:00 AM EDT active Diazepam 2 MG eCW1 ([facility]) Diazepam 2 MG Oral Tablet Diazepam 2 MG 11/10/2019 12:00:00 AM EDT 1.0 {tablet_as_needed} active Diazepam 2 MG eCW1 ([facility]) Diazepam 2 MG Oral Tablet Diazepam 2 MG 11/10/2019 12:00:00 AM EDT active Diazepam 2 MG eCW1 ([facility]) Diazepam 2 MG Oral Tablet Diazepam 2 MG 11/10/2019 12:00:00 AM EDT active Diazepam 2 MG eCW1 ([facility]) Diazepam 2 MG Oral Tablet Diazepam 2 MG 11/10/2019 12:00:00 AM EDT 1.0 {tablet_as_needed} active Diazepam 2 MG eCW1 ([facility]) Diazepam 2 MG Oral Tablet Diazepam 2 MG 11/10/2019 12:00:00 AM EDT active Diazepam 2 MG eCW1 ([facility]) Diazepam 2 MG Oral Tablet Diazepam 2 MG 11/10/2019 12:00:00 AM EDT active Diazepam 2 MG eCW1 ([facility]) Diazepam 2 MG Oral Tablet Diazepam 2 MG 11/10/2019 12:00:00 AM EDT 1.0 {tablet_as_needed} active Diazepam 2 MG eCW1 ([facility]) Diazepam 2 MG Oral Tablet Diazepam 2 MG 11/10/2019 12:00:00 AM EDT active Diazepam 2 MG eCW1 ([facility]) Diazepam 2 MG Oral Tablet Diazepam 2 MG 11/10/2019 12:00:00 AM EDT active Diazepam 2 MG eCW1 ([facility]) Diazepam 2 MG Oral Tablet Diazepam 2 MG 11/10/2019 12:00:00 AM EDT active Diazepam 2 MG eCW1 ([facility]) Diazepam 2 MG Oral Tablet Diazepam 2 MG 11/10/2019 12:00:00 AM EDT active Diazepam 2 MG eCW1 ([facility]) Diazepam 2 MG Oral Tablet Diazepam 2 MG 11/10/2019 12:00:00 AM EDT 1.0 {tablet_as_needed} active Diazepam 2 MG eCW1 ([facility]) Diazepam 2 MG Oral Tablet Diazepam 2 MG 11/10/2019 12:00:00 AM EDT 1.0 {tablet_as_needed} active Diazepam 2 MG eCW1 ([facility]) Diazepam 2 MG Oral Tablet Diazepam 2 MG 11/10/2019 12:00:00 AM EDT active Diazepam 2 MG eCW1 ([facility]) Diazepam 2 MG Oral Tablet Diazepam 2 MG 11/10/2019 12:00:00 AM EDT active Diazepam 2 MG eCW1 ([facility]) Diazepam 2 MG Oral Tablet Diazepam 2 MG 11/10/2019 12:00:00 AM EDT active Diazepam 2 MG eCW1 ([facility]) Diazepam 2 MG Oral Tablet Diazepam 2 MG 11/10/2019 12:00:00 AM EDT active Diazepam 2 MG eCW1 ([facility]) Diazepam 2 MG Oral Tablet Diazepam 2 MG 11/10/2019 12:00:00 AM EDT active Diazepam 2 MG eCW1 ([facility]) Diazepam 2 MG Oral Tablet Diazepam 2 MG 11/10/2019 12:00:00 AM EDT active Diazepam 2 MG eCW1 ([facility]) Diazepam 2 MG Oral Tablet Diazepam 2 MG 11/10/2019 12:00:00 AM EDT 1.0 {tablet_as_needed} active Diazepam 2 MG eCW1 ([facility]) Diazepam 2 MG Oral Tablet Diazepam 2 MG 11/10/2019 12:00:00 AM EDT 1.0 {tablet_as_needed} active Diazepam 2 MG eCW1 ([facility]) Diazepam 2 MG Oral Tablet Diazepam 2 MG 11/10/2019 12:00:00 AM EDT active Diazepam 2 MG eCW1 ([facility]) Diazepam 2 MG Oral Tablet Diazepam 2 MG 11/10/2019 12:00:00 AM EDT active Diazepam 2 MG eCW1 ([facility]) Diazepam 2 MG Oral Tablet Diazepam 2 MG 11/10/2019 12:00:00 AM EDT active Diazepam 2 MG eCW1 ([facility]) Diazepam 2 MG Oral Tablet Diazepam 2 MG 11/10/2019 12:00:00 AM EDT 1.0 {tablet_as_needed} active Diazepam 2 MG eCW1 ([facility]) 15 mg 11/04/2019 12:00:00 AM EDT tablet [...] MOUT H TWICE A DAY SOLD: 11/27/2019 [facility] carvedilol 6.25 MG Oral Tablet CARVEDILOL [...] HANDIHALER BY MOUTH EVERY DAY SOLD: 10/10/2019 [facility] 18 mcg 10/09/2019 12:00:00 AM EDT [...] BY MOUTH TWICE A DAY SOLD: 10/01/2019 [facility] Primidone 250 MG Oral Tablet Primidone 09/22/2019 12:00:00 AM EDT active MEDENT ([facility], ) 250 mg 09/22/2019 12:00:00 AM EDT [...] MAXIMUM DAILY DOSE = 4 SOLD: 09/14/2019 [facility] 28 ACTUAT tiotropium 0.0025 MG/ACTUAT Me tered Dose Inhaler [Spiriva] Spiriva Respimat 2.5 MCG/ACT Spiriva Respimat 2.5 MCG/ACT 09/04/2019 12:00:00 AM EDT 2.0 {puffs} suspended Spiriva Respimat 2 .5 MCG/ACT eCW1 ([facility]) 28 ACTUAT tiotropium 0.0025 MG/ACTUAT Me tered Dose Inhaler [Spiriva] Spiriva Respimat 2.5 MCG/ACT Spiriva Respimat 2.5 MCG/ACT 09/04/2019 12:00:00 AM EDT 2.0 {puffs} suspended Spiriva Respimat 2 .5 MCG/ACT eCW1 ([facility]) 28 ACTUAT tiotropium 0.0025 MG/ACTUAT Me tered Dose Inhaler [Spiriva] Spiriva Respimat 2.5 MCG/ACT Spiriva Respimat 2.5 MCG/ACT 09/04/2019 12:00:00 AM EDT 2.0 {puffs} suspended Spiriva Respimat 2 .5 MCG/ACT eCW1 ([facility]) 28 ACTUAT tiotropium 0.0025 MG/ACTUAT Me tered Dose Inhaler [Spiriva] Spiriva Respimat 2.5 MCG/ACT Spiriva Respimat 2.5 MCG/ACT 09/04/2019 12:00:00 AM EDT 2.0 {puffs} active Spiriva Respimat 2.5 MCG/ACT eCW1 ([facility]) 28 ACTUAT tiotropium 0.0025 MG/ACTUAT Me tered Dose Inhaler [Spiriva] Spiriva Respimat 2.5 MCG/ACT Spiriva Respimat 2.5 MCG/ACT 09/04/2019 12:00:00 AM EDT 2.0 {puffs} suspended Spiriva Respimat 2 .5 MCG/ACT eCW1 ([facility]) 15 mg 09/04/2019 12:00:00 AM EDT tablet [...] {puffs} active Spiriva Respimat 2.5 MCG/ACT eCW1 ([facility]) 28 ACTUAT tiotropium 0.0025 MG/ACTUAT Me tered Dose Inhaler [Spiriva] Spiriva Respimat 2.5 MCG/ACT Spiriva Respimat 2.5 MCG/ACT 09/04/2019 12:00:00 AM EDT 2.0 {puffs} suspended Spiriva Respimat 2 .5 MCG/ACT eCW1 ([facility]) 28 ACTUAT tiotropium 0.0025 MG/ACTUAT Me tered Dose Inhaler [Spiriva] Spiriva Respimat 2.5 MCG/ACT Spiriva Respimat 2.5 MCG/ACT 09/04/2019 12:00:00 AM EDT 2.0 {puffs} active Spiriva Respimat 2.5 MCG/ACT eCW1 ([facility]) 28 ACTUAT tiotropium 0.0025 MG/ACTUAT Me tered Dose Inhaler [Spiriva] Spiriva Respimat 2.5 MCG/ACT Spiriva Respimat 2.5 MCG/ACT 09/04/2019 12:00:00 AM EDT 2.0 {puffs} active Spiriva Respimat 2.5 MCG/ACT eCW1 ([facility]) 28 ACTUAT tiotropium 0.0025 MG/ACTUAT Me tered Dose Inhaler [Spiriva] Spiriva Respimat 2.5 MCG/ACT Spiriva Respimat 2.5 MCG/ACT 09/04/2019 12:00:00 AM EDT 2.0 {puffs} suspended Spiriva Respimat 2 .5 MCG/ACT eCW1 ([facility]) 28 ACTUAT tiotropium 0.0025 MG/ACTUAT Me tered Dose Inhaler [Spiriva] Spiriva Respimat 2.5 MCG/ACT Spiriva Respimat 2.5 MCG/ACT 09/04/2019 12:00:00 AM EDT 2.0 {puffs} active Spiriva Respimat 2.5 MCG/ACT eCW1 ([facility]) 28 ACTUAT tiotropium 0.0025 MG/ACTUAT Me tered Dose Inhaler [Spiriva] Spiriva Respimat 2.5 MCG/ACT Spiriva Respimat 2.5 MCG/ACT 09/04/2019 12:00:00 AM EDT 2.0 {puffs} suspended Spiriva Respimat 2 .5 MCG/ACT eCW1 ([facility]) 28 ACTUAT tiotropium 0.0025 MG/ACTUAT Me tered Dose Inhaler [Spiriva] Spiriva Respimat 2.5 MCG/ACT Spiriva Respimat 2.5 MCG/ACT 09/04/2019 12:00:00 AM EDT 2.0 {puffs} active Spiriva Respimat 2.5 MCG/ACT eCW1 ([facility]) 28 ACTUAT tiotropium 0.0025 MG/ACTUAT Me tered Dose Inhaler [Spiriva] Spiriva Respimat 2.5 MCG/ACT Spiriva Respimat 2.5 MCG/ACT 09/04/2019 12:00:00 AM EDT 2.0 {puffs} suspended Spiriva Respimat 2 .5 MCG/ACT eCW1 ([facility]) 28 ACTUAT tiotropium 0.0025 MG/ACTUAT Me tered Dose Inhaler [Spiriva] Spiriva Respimat 2.5 MCG/ACT Spiriva Respimat 2.5 MCG/ACT 09/04/2019 12:00:00 AM EDT 2.0 {puffs} active Spiriva Respimat 2.5 MCG/ACT eCW1 ([facility]) 28 ACTUAT tiotropium 0.0025 MG/ACTUAT Me tered Dose Inhaler [Spiriva] Spiriva Respimat 2.5 MCG/ACT Spiriva Respimat 2.5 MCG/ACT 09/04/2019 12:00:00 AM EDT 2.0 {puffs} active Spiriva Respimat 2.5 MCG/ACT eCW1 ([facility]) 28 ACTUAT tiotropium 0.0025 MG/ACTUAT Me tered Dose Inhaler [Spiriva] Spiriva Respimat 2.5 MCG/ACT Spiriva Respimat 2.5 MCG/ACT 09/04/2019 12:00:00 AM EDT 2.0 {puffs} active Spiriva Respimat 2.5 MCG/ACT eCW1 ([facility]) 28 ACTUAT tiotropium 0.0025 MG/ACTUAT Me tered Dose Inhaler [Spiriva] Spiriva Respimat 2.5 MCG/ACT Spiriva Respimat 2.5 MCG/ACT 09/04/2019 12:00:00 AM EDT 2.0 {puffs} active Spiriva Respimat 2.5 MCG/ACT eCW1 ([facility]) 28 ACTUAT tiotropium 0.0025 MG/ACTUAT Me tered Dose Inhaler [Spiriva] Spiriva Respimat 2.5 MCG/ACT Spiriva Respimat 2.5 MCG/ACT 09/04/2019 12:00:00 AM EDT 2.0 {puffs} suspended Spiriva Respimat 2 .5 MCG/ACT eCW1 ([facility]) 28 ACTUAT tiotropium 0.0025 MG/ACTUAT Me tered Dose Inhaler [Spiriva] Spiriva Respimat 2.5 MCG/ACT Spiriva Respimat 2.5 MCG/ACT 09/04/2019 12:00:00 AM EDT 2.0 {puffs} active Spiriva Respimat 2.5 MCG/ACT eCW1 ([facility]) 28 ACTUAT tiotropium 0.0025 MG/ACTUAT Me tered Dose Inhaler [Spiriva] Spiriva Respimat 2.5 MCG/ACT Spiriva Respimat 2.5 MCG/ACT 09/04/2019 12:00:00 AM EDT 2.0 {puffs} active Spiriva Respimat 2.5 MCG/ACT eCW1 ([facility]) 28 ACTUAT tiotropium 0.0025 MG/ACTUAT Me tered Dose Inhaler [Spiriva] Spiriva Respimat 2.5 MCG/ACT Spiriva Respimat 2.5 MCG/ACT 09/04/2019 12:00:00 AM EDT 2.0 {puffs} suspended Spiriva Respimat 2 .5 MCG/ACT eCW1 ([facility]) 28 ACTUAT tiotropium 0.0025 MG/ACTUAT Me tered Dose Inhaler [Spiriva] Spiriva Respimat 2.5 MCG/ACT Spiriva Respimat 2.5 MCG/ACT 09/04/2019 12:00:00 AM EDT 2.0 {puffs} active Spiriva Respimat 2.5 MCG/ACT eCW1 ([facility]) 28 ACTUAT tiotropium 0.0025 MG/ACTUAT Me tered Dose Inhaler [Spiriva] Spiriva Respimat 2.5 MCG/ACT Spiriva Respimat 2.5 MCG/ACT 09/04/2019 12:00:00 AM EDT 2.0 {puffs} active Spiriva Respimat 2.5 MCG/ACT eCW1 ([facility]) 28 ACTUAT tiotropium 0.0025 MG/ACTUAT Me tered Dose Inhaler [Spiriva] Spiriva Respimat 2.5 MCG/ACT Spiriva Respimat 2.5 MCG/ACT 09/04/2019 12:00:00 AM EDT 2.0 {puffs} active Spiriva Respimat 2.5 MCG/ACT eCW1 ([facility]) 28 ACTUAT tiotropium 0.0025 MG/ACTUAT Me tered Dose Inhaler [Spiriva] Spiriva Respimat 2.5 MCG/ACT Spiriva Respimat 2.5 MCG/ACT 09/04/2019 12:00:00 AM EDT 2.0 {puffs} suspended Spiriva Respimat 2 .5 MCG/ACT eCW1 ([facility]) 28 ACTUAT tiotropium 0.0025 MG/ACTUAT Me tered Dose Inhaler [Spiriva] Spiriva Respimat 2.5 MCG/ACT Spiriva Respimat 2.5 MCG/ACT 09/04/2019 12:00:00 AM EDT 2.0 {puffs} active Spiriva Respimat 2.5 MCG/ACT eCW1 ([facility]) 28 ACTUAT tiotropium 0.0025 MG/ACTUAT Me tered Dose Inhaler [Spiriva] Spiriva Respimat 2.5 MCG/ACT Spiriva Respimat 2.5 MCG/ACT 09/04/2019 12:00:00 AM EDT 2.0 {puffs} suspended Spiriva Respimat 2 .5 MCG/ACT eCW1 ([facility]) 28 ACTUAT tiotropium 0.0025 MG/ACTUAT Me tered Dose Inhaler [Spiriva] Spiriva Respimat 2.5 MCG/ACT Spiriva Respimat 2.5 MCG/ACT 09/04/2019 12:00:00 AM EDT 2.0 {puffs} active Spiriva Respimat 2.5 MCG/ACT eCW1 ([facility]) 28 ACTUAT tiotropium 0.0025 MG/ACTUAT Me tered Dose Inhaler [Spiriva] Spiriva Respimat 2.5 MCG/ACT Spiriva Respimat 2.5 MCG/ACT 09/04/2019 12:00:00 AM EDT 2.0 {puffs} suspended Spiriva Respimat 2 .5 MCG/ACT eCW1 ([facility]) 28 ACTUAT tiotropium 0.0025 MG/ACTUAT Me tered Dose Inhaler [Spiriva] Spiriva Respimat 2.5 MCG/ACT Spiriva Respimat 2.5 MCG/ACT 09/04/2019 12:00:00 AM EDT 2.0 {puffs} active Spiriva Respimat 2.5 MCG/ACT eCW1 ([facility]) 28 ACTUAT tiotropium 0.0025 MG/ACTUAT Me tered Dose Inhaler [Spiriva] Spiriva Respimat 2.5 MCG/ACT Spiriva Respimat 2.5 MCG/ACT 09/04/2019 12:00:00 AM EDT 2.0 {puffs} active Spiriva Respimat 2.5 MCG/ACT eCW1 ([facility]) 28 ACTUAT tiotropium 0.0025 MG/ACTUAT Me tered Dose Inhaler [Spiriva] Spiriva Respimat 2.5 MCG/ACT Spiriva Respimat 2.5 MCG/ACT 09/04/2019 12:00:00 AM EDT 2.0 {puffs} active Spiriva Respimat 2.5 MCG/ACT eCW1 ([facility]) 28 ACTUAT tiotropium 0.0025 MG/ACTUAT Me tered Dose Inhaler [Spiriva] Spiriva Respimat 2.5 MCG/ACT Spiriva Respimat 2.5 MCG/ACT 09/04/2019 12:00:00 AM EDT 2.0 {puffs} suspended Spiriva Respimat 2 .5 MCG/ACT eCW1 ([facility]) 28 ACTUAT tiotropium 0.0025 MG/ACTUAT Me tered Dose Inhaler [Spiriva] Spiriva Respimat 2.5 MCG/ACT Spiriva Respimat 2.5 MCG/ACT 09/04/2019 12:00:00 AM EDT 2.0 {puffs} active Spiriva Respimat 2.5 MCG/ACT eCW1 ([facility]) 28 ACTUAT tiotropium 0.0025 MG/ACTUAT Me tered Dose Inhaler [Spiriva] Spiriva Respimat 2.5 MCG/ACT Spiriva Respimat 2.5 MCG/ACT 09/04/2019 12:00:00 AM EDT 2.0 {puffs} suspended Spiriva Respimat 2 .5 MCG/ACT eCW1 ([facility]) 28 ACTUAT tiotropium 0.0025 MG/ACTUAT Me tered Dose Inhaler [Spiriva] Spiriva Respimat 2.5 MCG/ACT Spiriva Respimat 2.5 MCG/ACT 09/04/2019 12:00:00 AM EDT 2.0 {puffs} suspended Spiriva Respimat 2 .5 MCG/ACT eCW1 ([facility]) 28 ACTUAT tiotropium 0.0025 MG/ACTUAT Me tered Dose Inhaler [Spiriva] Spiriva Respimat 2.5 MCG/ACT Spiriva Respimat 2.5 MCG/ACT 09/04/2019 12:00:00 AM EDT 2.0 {puffs} suspended Spiriva Respimat 2 .5 MCG/ACT eCW1 ([facility]) 28 ACTUAT tiotropium 0.0025 MG/ACTUAT Me tered Dose Inhaler [Spiriva] Spiriva Respimat 2.5 MCG/ACT Spiriva Respimat 2.5 MCG/ACT 09/04/2019 12:00:00 AM EDT 2.0 {puffs} active Spiriva Respimat 2.5 MCG/ACT eCW1 ([facility]) 28 ACTUAT tiotropium 0.0025 MG/ACTUAT Me tered Dose Inhaler [Spiriva] Spiriva Respimat 2.5 MCG/ACT Spiriva Respimat 2.5 MCG/ACT 09/04/2019 12:00:00 AM EDT 2.0 {puffs} active Spiriva Respimat 2.5 MCG/ACT eCW1 ([facility]) 28 ACTUAT tiotropium 0.0025 MG/ACTUAT Me tered Dose Inhaler [Spiriva] Spiriva Respimat 2.5 MCG/ACT Spiriva Respimat 2.5 MCG/ACT 09/04/2019 12:00:00 AM EDT 2.0 {puffs} active Spiriva Respimat 2.5 MCG/ACT eCW1 ([facility]) 28 ACTUAT tiotropium 0.0025 MG/ACTUAT Me tered Dose Inhaler [Spiriva] Spiriva Respimat 2.5 MCG/ACT Spiriva Respimat 2.5 MCG/ACT 09/04/2019 12:00:00 AM EDT 2.0 {puffs} active Spiriva Respimat 2.5 MCG/ACT eCW1 ([facility]) 28 ACTUAT tiotropium 0.0025 MG/ACTUAT Me tered Dose Inhaler [Spiriva] Spiriva Respimat 2.5 MCG/ACT Spiriva Respimat 2.5 MCG/ACT 09/04/2019 12:00:00 AM EDT 2.0 {puffs} active Spiriva Respimat 2.5 MCG/ACT eCW1 ([facility]) 28 ACTUAT tiotropium 0.0025 MG/ACTUAT Me tered Dose Inhaler [Spiriva] Spiriva Respimat 2.5 MCG/ACT Spiriva Respimat 2.5 MCG/ACT 09/04/2019 12:00:00 AM EDT 2.0 {puffs} suspended Spiriva Respimat 2 .5 MCG/ACT eCW1 ([facility]) 28 ACTUAT tiotropium 0.0025 MG/ACTUAT Me tered Dose Inhaler [Spiriva] Spiriva Respimat 2.5 MCG/ACT Spiriva Respimat 2.5 MCG/ACT 09/04/2019 12:00:00 AM EDT 2.0 {puffs} active Spiriva Respimat 2.5 MCG/ACT eCW1 ([facility]) 28 ACTUAT tiotropium 0.0025 MG/ACTUAT Me tered Dose Inhaler [Spiriva] Spiriva Respimat 2.5 MCG/ACT Spiriva Respimat 2.5 MCG/ACT 09/04/2019 12:00:00 AM EDT 2.0 {puffs} active Spiriva Respimat 2.5 MCG/ACT eCW1 ([facility]) 28 ACTUAT tiotropium 0.0025 MG/ACTUAT Me tered Dose Inhaler [Spiriva] Spiriva Respimat 2.5 MCG/ACT Spiriva Respimat 2.5 MCG/ACT 09/04/2019 12:00:00 AM EDT 2.0 {puffs} active Spiriva Respimat 2.5 MCG/ACT eCW1 ([facility]) 28 ACTUAT tiotropium 0.0025 MG/ACTUAT Me tered Dose Inhaler [Spiriva] Spiriva Respimat 2.5 MCG/ACT Spiriva Respimat 2.5 MCG/ACT 09/04/2019 12:00:00 AM EDT 2.0 {puffs} suspended Spiriva Respimat 2 .5 MCG/ACT eCW1 ([facility]) 28 ACTUAT tiotropium 0.0025 MG/ACTUAT Me tered Dose Inhaler [Spiriva] Spiriva Respimat 2.5 MCG/ACT Spiriva Respimat 2.5 MCG/ACT 09/04/2019 12:00:00 AM EDT 2.0 {puffs} suspended Spiriva Respimat 2 .5 MCG/ACT eCW1 ([facility]) 28 ACTUAT tiotropium 0.0025 MG/ACTUAT Me tered Dose Inhaler [Spiriva] Spiriva Respimat 2.5 MCG/ACT Spiriva Respimat 2.5 MCG/ACT 09/04/2019 12:00:00 AM EDT 2.0 {puffs} active Spiriva Respimat 2.5 MCG/ACT eCW1 ([facility]) 28 ACTUAT tiotropium 0.0025 MG/ACTUAT Me tered Dose Inhaler [Spiriva] Spiriva Respimat 2.5 MCG/ACT Spiriva Respimat 2.5 MCG/ACT 09/04/2019 12:00:00 AM EDT 2.0 {puffs} active Spiriva Respimat 2.5 MCG/ACT eCW1 ([facility]) 28 ACTUAT tiotropium 0.0025 MG/ACTUAT Me tered Dose Inhaler [Spiriva] Spiriva Respimat 2.5 MCG/ACT Spiriva Respimat 2.5 MCG/ACT 09/04/2019 12:00:00 AM EDT 2.0 {puffs} suspended Spiriva Respimat 2 .5 MCG/ACT eCW1 ([facility]) 28 ACTUAT tiotropium 0.0025 MG/ACTUAT Me tered Dose Inhaler [Spiriva] Spiriva Respimat 2.5 MCG/ACT Spiriva Respimat 2.5 MCG/ACT 09/04/2019 12:00:00 AM EDT 2.0 {puffs} active Spiriva Respimat 2.5 MCG/ACT eCW1 ([facility]) 28 ACTUAT tiotropium 0.0025 MG/ACTUAT Me tered Dose Inhaler [Spiriva] Spiriva Respimat 2.5 MCG/ACT Spiriva Respimat 2.5 MCG/ACT 09/04/2019 12:00:00 AM EDT 2.0 {puffs} active Spiriva Respimat 2.5 MCG/ACT eCW1 ([facility]) 28 ACTUAT tiotropium 0.0025 MG/ACTUAT Me tered Dose Inhaler [Spiriva] Spiriva Respimat 2.5 MCG/ACT Spiriva Respimat 2.5 MCG/ACT 09/04/2019 12:00:00 AM EDT 2.0 {puffs} suspended Spiriva Respimat 2 .5 MCG/ACT eCW1 ([facility]) Morphine Sulfate 15 MG Extended Release Oral Tablet Mo rphine Sulfate ER 15 MG Morphine Sulfate ER 15 MG 09/03/2019 12:00:00 AM EDT active Morphine Sulfate ER 15 MG eCW1 ([facility]) Morphine Sulfate 15 MG Extended Release Oral Tablet Mo rphine Sulfate ER 15 MG Morphine Sulfate ER 15 MG 09/03/2019 12:00:00 AM EDT active Morphine Sulfate ER 15 MG eCW1 ([facility]) Morphine Sulfate 15 MG Extended Release Oral Tablet Mo rphine Sulfate ER 15 MG Morphine Sulfate ER 15 MG 09/03/2019 12:00:00 AM EDT active Morphine Sulfate ER 15 MG eCW1 ([facility]) Morphine Sulfate 15 MG Extended Release Oral Tablet Mo rphine Sulfate ER 15 MG Morphine Sulfate ER 15 MG 09/03/2019 12:00:00 AM EDT active Morphine Sulfate ER 15 MG eCW1 ([facility]) Morphine Sulfate 15 MG Extended Release Oral Tablet Mo rphine Sulfate ER 15 MG Morphine Sulfate ER 15 MG 09/03/2019 12:00:00 AM EDT active Morphine Sulfate ER 15 MG eCW1 ([facility]) Morphine Sulfate 15 MG Extended Release Oral Tablet Mo rphine Sulfate ER 15 MG Morphine Sulfate ER 15 MG 09/03/2019 12:00:00 AM EDT active Morphine Sulfate ER 15 MG eCW1 ([facility]) Morphine Sulfate 15 MG Extended Release Oral Tablet Mo rphine Sulfate ER 15 MG Morphine Sulfate ER 15 MG 09/03/2019 12:00:00 AM EDT active Morphine Sulfate ER 15 MG eCW1 ([facility]) Morphine Sulfate 15 MG Extended Release Oral Tablet Mo rphine Sulfate ER 15 MG Morphine Sulfate ER 15 MG 09/03/2019 12:00:00 AM EDT active Morphine Sulfate ER 15 MG eCW1 ([facility]) Morphine Sulfate 15 MG Extended Release Oral Tablet Mo rphine Sulfate ER 15 MG Morphine Sulfate ER 15 MG 09/03/2019 12:00:00 AM EDT active Morphine Sulfate ER 15 MG eCW1 ([facility]) Morphine Sulfate 15 MG Extended Release Oral Tablet Mo rphine Sulfate ER 15 MG Morphine Sulfate ER 15 MG 09/03/2019 12:00:00 AM EDT active Morphine Sulfate ER 15 MG eCW1 ([facility]) 50 mg 08/27/2019 12:00:00 AM EDT tablet [...] Primidone 08/26/2019 12:00:00 AM EDT completed MEDENT ([facility], ) 200 ACTUAT Albuterol 0.09 MG/ACTUAT Mete red Dose Inhaler [Ventolin] Ventolin HFA 108 (90 Base) MCG/ACT Ventolin HFA 108 (90 Base) MCG/ACT 08/25/2019 12:00:00 AM EDT 1.0 {puff_as_needed} suspended Ventolin HFA 108 (90 Base) MCG/ACT eCW1 ([facility]) 200 ACTUAT Albuterol 0.09 MG/ACTUAT Mete red Dose Inhaler [Ventolin] Ventolin HFA 108 (90 Base) MCG/ACT Ventolin HFA 108 (90 Base) MCG/ACT 08/25/2019 12:00:00 AM EDT 1.0 {puff_as_needed} suspended Ventolin HFA 108 (90 Base) MCG/ACT eCW1 ([facility]) 200 ACTUAT Albuterol 0.09 MG/ACTUAT Mete red Dose Inhaler [Ventolin] Ventolin HFA 108 (90 Base) MCG/ACT Ventolin HFA 108 (90 Base) MCG/ACT 08/25/2019 12:00:00 AM EDT 1.0 {puff_as_needed} suspended Ventolin HFA 108 (90 Base) MCG/ACT eCW1 ([facility]) 200 ACTUAT Albuterol 0.09 MG/ACTUAT Mete red Dose Inhaler [Ventolin] Ventolin HFA 108 (90 Base) MCG/ACT Ventolin HFA 108 (90 Base) MCG/ACT 08/25/2019 12:00:00 AM EDT 1.0 {puff_as_needed} suspended Ventolin HFA 108 (90 Base) MCG/ACT eCW1 ([facility]) 200 ACTUAT Albuterol 0.09 MG/ACTUAT Mete red Dose Inhaler [Ventolin] Ventolin HFA 108 (90 Base) MCG/ACT Ventolin HFA 108 (90 Base) MCG/ACT 08/25/2019 12:00:00 AM EDT 1.0 {puff_as_needed} suspended Ventolin HFA 108 (90 Base) MCG/ACT eCW1 ([facility]) 200 ACTUAT Albuterol 0.09 MG/ACTUAT Mete red Dose Inhaler [Ventolin] Ventolin HFA 108 (90 Base) MCG/ACT Ventolin HFA 108 (90 Base) MCG/ACT 08/25/2019 12:00:00 AM EDT 1.0 {puff_as_needed} active Jovani tolin HFA 108 (90 Base) MCG/ACT eCW1 ([facility]) 200 ACTUAT Albuterol 0.09 MG/ACTUAT Mete red Dose Inhaler [Ventolin] Ventolin HFA 108 (90 Base) MCG/ACT Ventolin HFA 108 (90 Base) MCG/ACT 08/25/2019 12:00:00 AM EDT 1.0 {puff_as_needed} suspended Ventolin HFA 108 (90 Base) MCG/ACT eCW1 ([facility]) tiotropium 0.018 MG/ACTUAT Inhalant Powder [Spiriva] S piriva HandiHaler 18 MCG Spiriva HandiHaler 18 MCG 08/25/2019 12:00:00 AM EDT active Spiriva HandiHaler 18 MCG eCW1 ([facility]) 200 ACTUAT Albuterol 0.09 MG/ACTUAT Mete red Dose Inhaler [Ventolin] Ventolin HFA 108 (90 Base) MCG/ACT Ventolin HFA 108 (90 Base) MCG/ACT 08/25/2019 12:00:00 AM EDT 1.0 {puff_as_needed} suspended Ventolin HFA 108 (90 Base) MCG/ACT eCW1 ([facility]) tiotropium 0.018 MG/ACTUAT Inhalant Powder [Spiriva] S piriva HandiHaler 18 MCG Spiriva HandiHaler 18 MCG 08/25/2019 12:00:00 AM EDT active Spiriva HandiHaler 18 MCG eCW1 ([facility]) 200 ACTUAT Albuterol 0.09 MG/ACTUAT Mete red Dose Inhaler [Ventolin] Ventolin HFA 108 (90 Base) MCG/ACT Ventolin HFA 108 (90 Base) MCG/ACT 08/25/2019 12:00:00 AM EDT 1.0 {puff_as_needed} suspended Ventolin HFA 108 (90 Base) MCG/ACT eCW1 ([facility]) 200 ACTUAT Albuterol 0.09 MG/ACTUAT Mete red Dose Inhaler [Ventolin] Ventolin HFA 108 (90 Base) MCG/ACT Ventolin HFA 108 (90 Base) MCG/ACT 08/25/2019 12:00:00 AM EDT 1.0 {puff_as_needed} active Jovani tolin HFA 108 (90 Base) MCG/ACT eCW1 ([facility]) 200 ACTUAT Albuterol 0.09 MG/ACTUAT Mete red Dose Inhaler [Ventolin] Ventolin HFA 108 (90 Base) MCG/ACT Ventolin HFA 108 (90 Base) MCG/ACT 08/25/2019 12:00:00 AM EDT 1.0 {puff_as_needed} suspended Ventolin HFA 108 (90 Base) MCG/ACT eCW1 ([facility]) 200 ACTUAT Albuterol 0.09 MG/ACTUAT Mete red Dose Inhaler [Ventolin] Ventolin HFA 108 (90 Base) MCG/ACT Ventolin HFA 108 (90 Base) MCG/ACT 08/25/2019 12:00:00 AM EDT 1.0 {puff_as_needed} suspended Ventolin HFA 108 (90 Base) MCG/ACT eCW1 ([facility]) 200 ACTUAT Albuterol 0.09 MG/ACTUAT Mete red Dose Inhaler [Ventolin] Ventolin HFA 108 (90 Base) MCG/ACT Ventolin HFA 108 (90 Base) MCG/ACT 08/25/2019 12:00:00 AM EDT 1.0 {puff_as_needed} active Jovani tolin HFA 108 (90 Base) MCG/ACT eCW1 ([facility]) tiotropium 0.018 MG/ACTUAT Inhalant Powder [Spiriva] S piriva HandiHaler 18 MCG Spiriva HandiHaler 18 MCG 08/25/2019 12:00:00 AM EDT active Spiriva HandiHaler 18 MCG eCW1 ([facility]) 200 ACTUAT Albuterol 0.09 MG/ACTUAT Mete red Dose Inhaler [Ventolin] Ventolin HFA 108 (90 Base) MCG/ACT Ventolin HFA 108 (90 Base) MCG/ACT 08/25/2019 12:00:00 AM EDT 1.0 {puff_as_needed} suspended Ventolin HFA 108 (90 Base) MCG/ACT eCW1 ([facility]) 200 ACTUAT Albuterol 0.09 MG/ACTUAT Mete red Dose Inhaler [Ventolin] Ventolin HFA 108 (90 Base) MCG/ACT Ventolin HFA 108 (90 Base) MCG/ACT 08/25/2019 12:00:00 AM EDT 1.0 {puff_as_needed} suspended Ventolin HFA 108 (90 Base) MCG/ACT eCW1 ([facility]) 200 ACTUAT Albuterol 0.09 MG/ACTUAT Mete red Dose Inhaler [Ventolin] Ventolin HFA 108 (90 Base) MCG/ACT Ventolin HFA 108 (90 Base) MCG/ACT 08/25/2019 12:00:00 AM EDT 1.0 {puff_as_needed} suspended Ventolin HFA 108 (90 Base) MCG/ACT eCW1 ([facility]) 200 ACTUAT Albuterol 0.09 MG/ACTUAT Mete red Dose Inhaler [Ventolin] Ventolin HFA 108 (90 Base) MCG/ACT Ventolin HFA 108 (90 Base) MCG/ACT 08/25/2019 12:00:00 AM EDT 1.0 {puff_as_needed} active Jovani tolin HFA 108 (90 Base) MCG/ACT eCW1 ([facility]) 200 ACTUAT Albuterol 0.09 MG/ACTUAT Mete red Dose Inhaler [Ventolin] Ventolin HFA 108 (90 Base) MCG/ACT Ventolin HFA 108 (90 Base) MCG/ACT 08/25/2019 12:00:00 AM EDT 1.0 {puff_as_needed} suspended Ventolin HFA 108 (90 Base) MCG/ACT eCW1 ([facility]) tiotropium 0.018 MG/ACTUAT Inhalant Powder [Spiriva] S piriva HandiHaler 18 MCG Spiriva HandiHaler 18 MCG 08/25/2019 12:00:00 AM EDT active Spiriva HandiHaler 18 MCG eCW1 ([facility]) 200 ACTUAT Albuterol 0.09 MG/ACTUAT Mete red Dose Inhaler [Ventolin] Ventolin HFA 108 (90 Base) MCG/ACT Ventolin HFA 108 (90 Base) MCG/ACT 08/25/2019 12:00:00 AM EDT 1.0 {puff_as_needed} suspended Ventolin HFA 108 (90 Base) MCG/ACT eCW1 ([facility]) 200 ACTUAT Albuterol 0.09 MG/ACTUAT Mete red Dose Inhaler [Ventolin] Ventolin HFA 108 (90 Base) MCG/ACT Ventolin HFA 108 (90 Base) MCG/ACT 08/25/2019 12:00:00 AM EDT 1.0 {puff_as_needed} suspended Ventolin HFA 108 (90 Base) MCG/ACT eCW1 ([facility]) 200 ACTUAT Albuterol 0.09 MG/ACTUAT Mete red Dose Inhaler [Ventolin] Ventolin HFA 108 (90 Base) MCG/ACT Ventolin HFA 108 (90 Base) MCG/ACT 08/25/2019 12:00:00 AM EDT 1.0 {puff_as_needed} suspended Ventolin HFA 108 (90 Base) MCG/ACT eCW1 ([facility]) tiotropium 0.018 MG/ACTUAT Inhalant Powder [Spiriva] S piriva HandiHaler 18 MCG Spiriva HandiHaler 18 MCG 08/25/2019 12:00:00 AM EDT active Spiriva HandiHaler 18 MCG eCW1 ([facility]) 200 ACTUAT Albuterol 0.09 MG/ACTUAT Mete red Dose Inhaler [Ventolin] Ventolin HFA 108 (90 Base) MCG/ACT Ventolin HFA 108 (90 Base) MCG/ACT 08/25/2019 12:00:00 AM EDT 1.0 {puff_as_needed} suspended Ventolin HFA 108 (90 Base) MCG/ACT eCW1 ([facility]) 200 ACTUAT Albuterol 0.09 MG/ACTUAT Mete red Dose Inhaler [Ventolin] Ventolin HFA 108 (90 Base) MCG/ACT Ventolin HFA 108 (90 Base) MCG/ACT 08/25/2019 12:00:00 AM EDT 1.0 {puff_as_needed} active Jovani tolin HFA 108 (90 Base) MCG/ACT eCW1 ([facility]) 200 ACTUAT Albuterol 0.09 MG/ACTUAT Mete red Dose Inhaler [Ventolin] Ventolin HFA 108 (90 Base) MCG/ACT Ventolin HFA 108 (90 Base) MCG/ACT 08/25/2019 12:00:00 AM EDT 1.0 {puff_as_needed} suspended Ventolin HFA 108 (90 Base) MCG/ACT eCW1 ([facility]) tiotropium 0.018 MG/ACTUAT Inhalant Powder [Spiriva] S piriva HandiHaler 18 MCG Spiriva HandiHaler 18 MCG 08/25/2019 12:00:00 AM EDT active Spiriva HandiHaler 18 MCG eCW1 ([facility]) tiotropium 0.018 MG/ACTUAT Inhalant Powder [Spiriva] S piriva HandiHaler 18 MCG Spiriva HandiHaler 18 MCG 08/25/2019 12:00:00 AM EDT active Spiriva HandiHaler 18 MCG eCW1 ([facility]) 200 ACTUAT Albuterol 0.09 MG/ACTUAT Mete red Dose Inhaler [Ventolin] Ventolin HFA 108 (90 Base) MCG/ACT Ventolin HFA 108 (90 Base) MCG/ACT 08/25/2019 12:00:00 AM EDT 1.0 {puff_as_needed} active Jovani tolin HFA 108 (90 Base) MCG/ACT eCW1 ([facility]) tiotropium 0.018 MG/ACTUAT Inhalant Powder [Spiriva] S piriva HandiHaler 18 MCG Spiriva HandiHaler 18 MCG 08/25/2019 12:00:00 AM EDT active Spiriva HandiHaler 18 MCG eCW1 ([facility]) 200 ACTUAT Albuterol 0.09 MG/ACTUAT Mete red Dose Inhaler [Ventolin] Ventolin HFA 108 (90 Base) MCG/ACT Ventolin HFA 108 (90 Base) MCG/ACT 08/25/2019 12:00:00 AM EDT 1.0 {puff_as_needed} active Jovani tolin HFA 108 (90 Base) MCG/ACT eCW1 ([facility]) 200 ACTUAT Albuterol 0.09 MG/ACTUAT Mete red Dose Inhaler [Ventolin] Ventolin HFA 108 (90 Base) MCG/ACT Ventolin HFA 108 (90 Base) MCG/ACT 08/25/2019 12:00:00 AM EDT 1.0 {puff_as_needed} suspended Ventolin HFA 108 (90 Base) MCG/ACT eCW1 ([facility]) 200 ACTUAT Albuterol 0.09 MG/ACTUAT Mete red Dose Inhaler [Ventolin] Ventolin HFA 108 (90 Base) MCG/ACT Ventolin HFA 108 (90 Base) MCG/ACT 08/25/2019 12:00:00 AM EDT 1.0 {puff_as_needed} suspended Ventolin HFA 108 (90 Base) MCG/ACT eCW1 ([facility]) 200 ACTUAT Albuterol 0.09 MG/ACTUAT Mete red Dose Inhaler [Ventolin] Ventolin HFA 108 (90 Base) MCG/ACT Ventolin HFA 108 (90 Base) MCG/ACT 08/25/2019 12:00:00 AM EDT 1.0 {puff_as_needed} active Jovani tolin HFA 108 (90 Base) MCG/ACT eCW1 ([facility]) 10-325 mg 08/15/2019 12:00:00 AM EDT tablet [...] {tablet_as_needed} suspended Percocet 10 -325 MG eCW1 ([facility]) Acetaminophen 325 MG / Oxycodone Hydroch loride 10 MG Oral Tablet [Percocet] Percocet 10-325 MG Percocet 10-325 MG 08/07/2019 12:00:00 AM EDT 1.0 {tablet_as_needed} active Percocet 10-3 25 MG eCW1 ([facility]) Acetaminophen 325 MG / Oxycodone Hydroch loride 10 MG Oral Tablet [Percocet] Percocet 10-325 MG Percocet 10-325 MG 08/07/2019 12:00:00 AM EDT 1.0 {tablet_as_needed} suspended Percocet 10 -325 MG eCW1 ([facility]) Acetaminophen 325 MG / Oxycodone Hydroch loride 10 MG Oral Tablet [Percocet] Percocet 10-325 MG Percocet 10-325 MG 08/07/2019 12:00:00 AM EDT 1.0 {tablet_as_needed} suspended Percocet 10 -325 MG eCW1 ([facility]) Acetaminophen 325 MG / Oxycodone Hydroch loride 10 MG Oral Tablet [Percocet] Percocet 10-325 MG Percocet 10-325 MG 08/07/2019 12:00:00 AM EDT 1.0 {tablet_as_needed} active Percocet 10-3 25 MG eCW1 ([facility]) Acetaminophen 325 MG / Oxycodone Hydroch loride 10 MG Oral Tablet [Percocet] Percocet 10-325 MG Percocet 10-325 MG 08/07/2019 12:00:00 AM EDT 1.0 {tablet_as_needed} active Percocet 10-3 25 MG eCW1 ([facility]) Acetaminophen 325 MG / Oxycodone Hydroch loride 10 MG Oral Tablet [Percocet] Percocet 10-325 MG Percocet 10-325 MG 08/07/2019 12:00:00 AM EDT 1.0 {tablet_as_needed} active Percocet 10-3 25 MG eCW1 ([facility]) Acetaminophen 325 MG / Oxycodone Hydroch loride 10 MG Oral Tablet [Percocet] Percocet 10-325 MG Percocet 10-325 MG 08/07/2019 12:00:00 AM EDT 1.0 {tablet_as_needed} suspended Percocet 10 -325 MG eCW1 ([facility]) Acetaminophen 325 MG / Oxycodone Hydroch loride 10 MG Oral Tablet [Percocet] Percocet 10-325 MG Percocet 10-325 MG 08/07/2019 12:00:00 AM EDT 1.0 {tablet_as_needed} active Percocet 10-3 25 MG eCW1 ([facility]) Acetaminophen 325 MG / Oxycodone Hydroch loride 10 MG Oral Tablet [Percocet] Percocet 10-325 MG Percocet 10-325 MG 08/07/2019 12:00:00 AM EDT 1.0 {tablet_as_needed} suspended Percocet 10 -325 MG eCW1 ([facility]) Acetaminophen 325 MG / Oxycodone Hydroch loride 10 MG Oral Tablet [Percocet] Percocet 10-325 MG Percocet 10-325 MG 08/07/2019 12:00:00 AM EDT 1.0 {tablet_as_needed} suspended Percocet 10 -325 MG eCW1 ([facility]) Acetaminophen 325 MG / Oxycodone Hydroch loride 10 MG Oral Tablet [Percocet] Percocet 10-325 MG Percocet 10-325 MG 08/07/2019 12:00:00 AM EDT 1.0 {tablet_as_needed} active Percocet 10-3 25 MG eCW1 ([facility]) Acetaminophen 325 MG / Oxycodone Hydroch loride 10 MG Oral Tablet [Percocet] Percocet 10-325 MG Percocet 10-325 MG 08/07/2019 12:00:00 AM EDT 1.0 {tablet_as_needed} active Percocet 10-3 25 MG eCW1 ([facility]) Acetaminophen 325 MG / Oxycodone Hydroch loride 10 MG Oral Tablet [Percocet] Percocet 10-325 MG Percocet 10-325 MG 08/07/2019 12:00:00 AM EDT 1.0 {tablet_as_needed} suspended Percocet 10 -325 MG eCW1 ([facility]) Acetaminophen 325 MG / Oxycodone Hydroch loride 10 MG Oral Tablet [Percocet] Percocet 10-325 MG Percocet 10-325 MG 08/07/2019 12:00:00 AM EDT 1.0 {tablet_as_needed} active Percocet 10-3 25 MG eCW1 ([facility]) Acetaminophen 325 MG / Oxycodone Hydroch loride 10 MG Oral Tablet [Percocet] Percocet 10-325 MG Percocet 10-325 MG 08/07/2019 12:00:00 AM EDT 1.0 {tablet_as_needed} suspended Percocet 10 -325 MG eCW1 ([facility]) Acetaminophen 325 MG / Oxycodone Hydroch loride 10 MG Oral Tablet [Percocet] Percocet 10-325 MG Percocet 10-325 MG 08/07/2019 12:00:00 AM EDT 1.0 {tablet_as_needed} active Percocet 10-3 25 MG eCW1 ([facility]) Acetaminophen 325 MG / Oxycodone Hydroch loride 10 MG Oral Tablet [Percocet] Percocet 10-325 MG Percocet 10-325 MG 08/07/2019 12:00:00 AM EDT 1.0 {tablet_as_needed} suspended Percocet 10 -325 MG eCW1 ([facility]) Acetaminophen 325 MG / Oxycodone Hydroch loride 10 MG Oral Tablet [Percocet] Percocet 10-325 MG Percocet 10-325 MG 08/07/2019 12:00:00 AM EDT 1.0 {tablet_as_needed} suspended Percocet 10 -325 MG eCW1 ([facility]) Acetaminophen 325 MG / Oxycodone Hydroch loride 10 MG Oral Tablet [Percocet] Percocet 10-325 MG Percocet 10-325 MG 08/07/2019 12:00:00 AM EDT 1.0 {tablet_as_needed} active Percocet 10-3 25 MG eCW1 ([facility]) Acetaminophen 325 MG / Oxycodone Hydroch loride 10 MG Oral Tablet [Percocet] Percocet 10-325 MG Percocet 10-325 MG 08/07/2019 12:00:00 AM EDT 1.0 {tablet_as_needed} suspended Percocet 10 -325 MG eCW1 ([facility]) Acetaminophen 325 MG / Oxycodone Hydroch loride 10 MG Oral Tablet [Percocet] Percocet 10-325 MG Percocet 10-325 MG 08/07/2019 12:00:00 AM EDT 1.0 {tablet_as_needed} suspended Percocet 10 -325 MG eCW1 ([facility]) Acetaminophen 325 MG / Oxycodone Hydroch loride 10 MG Oral Tablet [Percocet] Percocet 10-325 MG Percocet 10-325 MG 08/07/2019 12:00:00 AM EDT 1.0 {tablet_as_needed} active Percocet 10-3 25 MG eCW1 ([facility]) Acetaminophen 325 MG / Oxycodone Hydroch loride 10 MG Oral Tablet [Percocet] Percocet 10-325 MG Percocet 10-325 MG 08/07/2019 12:00:00 AM EDT 1.0 {tablet_as_needed} active Percocet 10-3 25 MG eCW1 ([facility]) Acetaminophen 325 MG / Oxycodone Hydroch loride 10 MG Oral Tablet [Percocet] Percocet 10-325 MG Percocet 10-325 MG 08/07/2019 12:00:00 AM EDT 1.0 {tablet_as_needed} active Percocet 10-3 25 MG eCW1 ([facility]) Acetaminophen 325 MG / Oxycodone Hydroch loride 10 MG Oral Tablet [Percocet] Percocet 10-325 MG Percocet 10-325 MG 08/07/2019 12:00:00 AM EDT 1.0 {tablet_as_needed} active Percocet 10-3 25 MG eCW1 ([facility]) Acetaminophen 325 MG / Oxycodone Hydroch loride 10 MG Oral Tablet [Percocet] Percocet 10-325 MG Percocet 10-325 MG 08/07/2019 12:00:00 AM EDT 1.0 {tablet_as_needed} active Percocet 10-3 25 MG eCW1 ([facility]) Acetaminophen 325 MG / Oxycodone Hydroch loride 10 MG Oral Tablet [Percocet] Percocet 10-325 MG Percocet 10-325 MG 08/07/2019 12:00:00 AM EDT 1.0 {tablet_as_needed} active Percocet 10-3 25 MG eCW1 ([facility]) Acetaminophen 325 MG / Oxycodone Hydroch loride 10 MG Oral Tablet [Percocet] Percocet 10-325 MG Percocet 10-325 MG 08/07/2019 12:00:00 AM EDT 1.0 {tablet_as_needed} active Percocet 10-3 25 MG eCW1 ([facility]) 15 mg 08/06/2019 12:00:00 AM EDT tablet [...] MOUTH EVERY MORNING WITH FOOD SOLD: 08/05/2019 [facility] Propranolol Hydrochloride 10 MG Oral Tablet Propranolo l HCl 10 MG Propranolol HCl 10 MG 08/04/2019 12:00:00 AM EDT 1.0 {tablet} ac tive Propranolol HCl 10 MG eCW1 ([facility]) Chlorthalidone 25 MG Oral Tablet Chlorthalidone 25 MG 2019 12:00:00 AM EDT 1.0 {tablet_in_the_morning_with_food} active Chlorthalidone 25 MG eCW1 ([facility]) 10 mg 08/04/2019 12:00:00 AM EDT tablet 60 TAKE ONE TABLET BY MOUTH TWICE A DAY TAKE ONE TABLET BY MOUTH TWICE A DAY SOLD: 08/05/2019 [facility] Morphine Sulfate 15 MG Extended Release Oral Tablet Mo rphine Sulfate ER 15 MG Morphine Sulfate ER 15 MG 07/28/2019 12:00:00 AM EDT active Morphine Sulfate ER 15 MG eCW1 ([facility]) Morphine Sulfate 15 MG Extended Release Oral Tablet Mo rphine Sulfate ER 15 MG Morphine Sulfate ER 15 MG 07/28/2019 12:00:00 AM EDT active Morphine Sulfate ER 15 MG eCW1 ([facility]) Morphine Sulfate 15 MG Extended Release Oral Tablet Mo rphine Sulfate ER 15 MG Morphine Sulfate ER 15 MG 07/28/2019 12:00:00 AM EDT active Morphine Sulfate ER 15 MG eCW1 ([facility]) Morphine Sulfate 15 MG Extended Release Oral Tablet Mo rphine Sulfate ER 15 MG Morphine Sulfate ER 15 MG 07/28/2019 12:00:00 AM EDT active Morphine Sulfate ER 15 MG eCW1 ([facility]) Morphine Sulfate 15 MG Extended Release Oral Tablet Mo rphine Sulfate ER 15 MG Morphine Sulfate ER 15 MG 07/28/2019 12:00:00 AM EDT active Morphine Sulfate ER 15 MG eCW1 ([facility]) 300 mg 07/28/2019 12:00:00 AM EDT capsule 60 TAKE ONE CAPSULE BY MOUTH TWICE A DAY, MAXIMUM DAILY DOSE = 2 CAPSULES TAKE ONE CAPSULE BY MOUTH TWICE A DAY, MAXIMUM DAILY DOSE = 2 CAPSULES SOLD: 07/28/2019 [facility] Morphine Sulfate 15 MG Extended Release Oral Tablet Mo rphine Sulfate ER 15 MG Morphine Sulfate ER 15 MG 07/28/2019 12:00:00 AM EDT active Morphine Sulfate ER 15 MG eCW1 ([facility]) Morphine Sulfate 15 MG Extended Release Oral Tablet Mo rphine Sulfate ER 15 MG Morphine Sulfate ER 15 MG 07/28/2019 12:00:00 AM EDT active Morphine Sulfate ER 15 MG eCW1 ([facility]) 300 mg 07/28/2019 12:00:00 AM EDT capsule 60 TAKE ONE CAPSULE BY MOUTH TWICE A DAY, MAXIMUM DAILY DOSE = 2 CAPSULES TAKE ONE CAPSULE BY MOUTH TWICE A DAY, MAXIMUM DAILY DOSE = 2 CAPSULES SOLD: 08/26/2019 [facility] 300 mg 07/28/2019 12:00:00 AM EDT capsule 60 TAKE ONE CAPSULE BY MOUTH TWICE A DAY, MAXIMUM DAILY DOSE = 2 CAPSULES TAKE ONE CAPSULE BY MOUTH TWICE A DAY, MAXIMUM DAILY DOSE = 2 CAPSULES SOLD: 09/24/2019 [facility] Morphine Sulfate 15 MG Extended Release Oral Tablet Mo rphine Sulfate ER 15 MG Morphine Sulfate ER 15 MG 07/28/2019 12:00:00 AM EDT active Morphine Sulfate ER 15 MG eCW1 ([facility]) Morphine Sulfate 15 MG Extended Release Oral Tablet Mo rphine Sulfate ER 15 MG Morphine Sulfate ER 15 MG 07/28/2019 12:00:00 AM EDT active Morphine Sulfate ER 15 MG eCW1 ([facility]) Morphine Sulfate 15 MG Extended Release Oral Tablet Mo rphine Sulfate ER 15 MG Morphine Sulfate ER 15 MG 07/28/2019 12:00:00 AM EDT active Morphine Sulfate ER 15 MG eCW1 ([facility]) 10-325 mg 07/17/2019 12:00:00 AM EDT tablet 120 TAKE ONE TABLET BY MOUTH EVERY 6 HOURS NEEDED MAXIMUM DAILY DOSE = 4 TAKE ONE TABLET BY MOUTH EVERY 6 HOURS NEEDED MAXIMUM DAILY DOSE = 4 SOLD: 07/17/2019 [facility] Amitriptyline Hydrochloride 25 MG Oral Tablet AMITRIPTYLINE [...] TABLETS BY MOUTH EVERY DAY SOLD: 09/16/2019 [facility] Acetaminophen 325 MG / Oxycodone Hydroch loride 10 MG Oral Tablet [Percocet] Percocet 10-325 MG Percocet 10-325 MG 07/13/2019 12:00:00 AM EDT active 1 tablet as needed eCW1 ([facility]) Amitriptyline Hydrochloride 25 MG Oral Tablet [...] active Morphine Sulfate ER 15 MG eCW1 ([facility]) Morphine Sulfate 15 MG Extended Release Oral Tablet Mo rphine Sulfate ER 15 MG Morphine Sulfate ER 15 MG 07/07/2019 12:00:00 AM EDT active Morphine Sulfate ER 15 MG eCW1 ([facility]) Morphine Sulfate 15 MG Extended Release Oral Tablet Mo rphine Sulfate ER 15 MG Morphine Sulfate ER 15 MG 07/07/2019 12:00:00 AM EDT active Morphine Sulfate ER 15 MG eCW1 ([facility]) Morphine Sulfate 15 MG Extended Release Oral Tablet Mo rphine Sulfate ER 15 MG Morphine Sulfate ER 15 MG 07/07/2019 12:00:00 AM EDT active 1 to 2 as directed eCW1 ([facility]) 15 mg 07/07/2019 12:00:00 AM EDT tablet [...] {tablet_as_needed} active Percocet 10-3 25 MG eCW1 ([facility]) Acetaminophen 325 MG / Oxycodone Hydroch loride 10 MG Oral Tablet [Percocet] Percocet 10-325 MG Percocet 10-325 MG 06/17/2019 12:00:00 AM EDT 1.0 {tablet_as_needed} active Percocet 10-3 25 MG eCW1 ([facility]) Acetaminophen 325 MG / Oxycodone Hydroch loride 10 MG Oral Tablet [Percocet] Percocet 10-325 MG Percocet 10-325 MG 06/17/2019 12:00:00 AM EDT 1.0 {tablet_as_needed} active Percocet 10-3 25 MG eCW1 ([facility]) Acetaminophen 325 MG / Oxycodone Hydroch loride 10 MG Oral Tablet [Percocet] Percocet 10-325 MG Percocet 10-325 MG 06/17/2019 12:00:00 AM EDT 1.0 {tablet_as_needed} active Percocet 10-3 25 MG eCW1 ([facility]) Acetaminophen 325 MG / Oxycodone Hydroch loride 10 MG Oral Tablet [Percocet] Percocet 10-325 MG Percocet 10-325 MG 06/17/2019 12:00:00 AM EDT active 1 tablet as needed eCW1 ([facility]) Acetaminophen 325 MG / Oxycodone Hydroch loride 10 MG Oral Tablet [Percocet] Percocet 10-325 MG Percocet 10-325 MG 06/17/2019 12:00:00 AM EDT 1.0 {tablet_as_needed} active Percocet 10-3 25 MG eCW1 ([facility]) Acetaminophen 325 MG / Oxycodone Hydroch loride 10 MG Oral Tablet [Percocet] Percocet 10-325 MG Percocet 10-325 MG 06/17/2019 12:00:00 AM EDT 1.0 {tablet_as_needed} active Percocet 10-3 25 MG eCW1 ([facility]) Acetaminophen 325 MG / Oxycodone Hydroch loride 10 MG Oral Tablet [Percocet] Percocet 10-325 MG Percocet 10-325 MG 06/17/2019 12:00:00 AM EDT active 1 tablet as needed eCW1 ([facility]) 5 mg 06/11/2019 12:00:00 AM EDT tablet [...] TABLET BY MOUTH EVERY DAY SOLD: 06/05/2019 [facility] Morphine Sulfate 15 MG Extended Release Oral Tablet Mo rphine Sulfate ER 15 MG Morphine Sulfate ER 15 MG 06/03/2019 12:00:00 AM EDT active 1 to 2 as directed eCW1 ([facility]) Morphine Sulfate 15 MG Extended Release Oral Tablet Mo rphine Sulfate ER 15 MG Morphine Sulfate ER 15 MG 06/03/2019 12:00:00 AM EDT active 1 to 2 as directed eCW1 ([facility]) Morphine Sulfate 15 MG Extended Release Oral Tablet Mo rphine Sulfate ER 15 MG Morphine Sulfate ER 15 MG 06/03/2019 12:00:00 AM EDT active 1 to 2 as directed eCW1 ([facility]) 40 mg 06/03/2019 12:00:00 AM EDT tablet 90 TAKE ONE TABLET BY MOUTH EVERY DAY TAKE ONE TABLET BY MOUTH EVERY DAY SOLD: 08/13/2019 [facility] 40 mg 06/03/2019 12:00:00 AM EDT tablet 90 TAKE ONE TABLET BY MOUTH EVERY DAY TAKE ONE TABLET BY MOUTH EVERY DAY SOLD: 06/05/2019 [facility] 50 mg 06/03/2019 12:00:00 AM EDT tablet 90 TAKE ONE TABLET BY MOUTH EVERY DAY TAKE ONE TABLET BY MOUTH EVERY DAY SOLD: 08/13/2019 [facility] 350 mg 05/31/2019 12:00:00 AM EDT [...] 1 tablet as needed eCW1 ([facility]) Acetaminophen 325 MG / Oxycodone Hydroch loride 10 MG Oral Tablet [Percocet] Percocet 10-325 MG Percocet 10-325 MG 05/18/2019 12:00:00 AM EDT active 1 tablet as needed eCW1 ([facility]) Acetaminophen 325 MG / Oxycodone Hydroch loride 10 MG Oral Tablet [Percocet] Percocet 10-325 MG Percocet 10-325 MG 05/18/2019 12:00:00 AM EDT active 1 tablet as needed eCW1 ([facility]) 800 mg 05/16/2019 12:00:00 AM EDT tablet [...] active 1 to 2 as directed eCW1 ([facility]) Morphine Sulfate 15 MG Extended Release Oral Tablet Mo rphine Sulfate ER 15 MG Morphine Sulfate ER 15 MG 05/04/2019 12:00:00 AM EDT active 1 to 2 as directed eCW1 ([facility]) Morphine Sulfate 15 MG Extended Release Oral Tablet Mo rphine Sulfate ER 15 MG Morphine Sulfate ER 15 MG 05/04/2019 12:00:00 AM EDT active 1 to 2 as directed eCW1 ([facility]) 100,000 unit/gram 04/30/2019 12:00:00 AM EDT cream [...] DAILY DOSE = 4 TABLETS SOLD: 04/21/2019 [facility] Acetaminophen 325 MG / Oxycodone Hydroch loride 10 MG Oral Tablet [Percocet] Percocet 10-325 MG Percocet 10-325 MG 04/21/2019 12:00:00 AM EDT active 1 tablet as needed eCW1 ([facility]) 100,000 unit/gram 04/15/2019 12:00:00 AM EST cream 30 APPLY TO RASH ON GROIN TWO TIMES A DAY APPLY TO RASH ON GROIN TWO TIMES A DAY SOLD: 04/26/2019 [facility] 100,000 unit/gram 04/15/2019 12:00:00 AM EST cream 30 APPLY TO RASH ON GROIN TWO TIMES A DAY APPLY TO RASH ON GROIN TWO TIMES A DAY SOLD: 04/16/2019 [facility] 5 mg 04/14/2019 12:00:00 AM EST tablet 60 TAKE ONE TABLET BY MOUTH EVERY 12 HOURS NEEDED FOR ANXIETY. MAXIMUM DAILY DOSE = 2 TABLETS TAKE ONE TABLET BY MOUTH EVERY 12 HOURS NEEDED FOR ANXIETY. MAXIMUM DAILY DOSE = 2 TABLETS SOLD: 04/14/2019 [facility] 15 mg 04/08/2019 12:00:00 AM EST tablet extended release 90 TAKE 1 TABLET BY MOUTH IN THE MORNING AND 2 AT BEDTIME DIRECTED MAXIMUM DAILY DOSE = 3 TABLETS TAKE 1 TABLET BY MOUTH IN THE MORNING AN D 2 AT BEDTIME DIRECTED MAXIMUM DAILY DOSE = 3 TABLETS SOLD: 04/08/2019 [facility] Morphine Sulfate 15 MG Extended Release Oral Tablet Mo rphine Sulfate ER 15 MG Morphine Sulfate ER 15 MG 04/08/2019 12:00:00 AM EST active 1 to 2 as directed eCW1 ([facility]) Morphine Sulfate 15 MG Extended Release Oral Tablet Mo rphine Sulfate ER 15 MG Morphine Sulfate ER 15 MG 04/08/2019 12:00:00 AM EST active 1 to 2 as directed eCW1 ([facility]) Amitriptyline Hydrochloride 25 MG Oral Tablet AMITRIPTYLINE HCL 04/06/2019 12:00:00 AM EST tablet 270 TAKE THREE TABLETS BY DAENIKE TH EVERY DAY TAKE THREE TABLETS BY [...] DAILY DOSE = 4 TABLETS SOLD: 04/02/2019 [facility] Diazepam 5 MG Oral Tablet diazePAM 5 MG Oral Tablet (V ALIUM) diazePAM 5 MG Oral Tablet (VALIUM) 04/01/2019 12:00:00 AM EST 5 mg Oral ac tive Take 1 tablet by mouth every 6 (six) hours as needed for Anxiety for up to 10 days, Max Daily Dose: 20 mg [facility] 300 mg 03/27/2019 12:00:00 AM [...] MOUTH THREE TIMES A DAY SOLD: 06/30/2019 [facility] atorvastatin 40 MG Oral Tablet Atorvastatin Calcium 40 MG Atorvastatin Calcium 40 MG 03/26/2019 12:00:00 AM EST active 1 tablet eCW1 ([facility]) atorvastatin 40 MG Oral Tablet Atorvastatin Calcium 40 MG Atorvastatin Calcium 40 MG 03/26/2019 12:00:00 AM EST 1.0 {tablet} activ e Atorvastatin Calcium 40 MG eCW1 ([facility]) atorvastatin 40 MG Oral Tablet Atorvastatin Calcium 40 MG Atorvastatin Calcium 40 MG 03/26/2019 12:00:00 AM EST 1.0 {tablet} activ e Atorvastatin Calcium 40 MG eCW1 ([facility]) atorvastatin 40 MG Oral Tablet Atorvastatin Calcium 40 MG Atorvastatin Calcium 40 MG 03/26/2019 12:00:00 AM EST 1.0 {tablet} activ e Atorvastatin Calcium 40 MG eCW1 ([facility]) atorvastatin 40 MG Oral Tablet Atorvastatin Calcium 40 MG Atorvastatin Calcium 40 MG 03/26/2019 12:00:00 AM EST active 1 tablet eCW1 ([facility]) atorvastatin 40 MG Oral Tablet Atorvastatin Calcium 40 MG Atorvastatin Calcium 40 MG 03/26/2019 12:00:00 AM EST 1.0 {tablet} activ e Atorvastatin Calcium 40 MG eCW1 ([facility]) atorvastatin 40 MG Oral Tablet Atorvastatin Calcium 40 MG Atorvastatin Calcium 40 MG 03/26/2019 12:00:00 AM EST active 1 tablet eCW1 ([facility]) atorvastatin 40 MG Oral Tablet Atorvastatin Calcium 40 MG Atorvastatin Calcium 40 MG 03/26/2019 12:00:00 AM EST 1.0 {tablet} activ e Atorvastatin Calcium 40 MG eCW1 ([facility]) atorvastatin 40 MG Oral Tablet Atorvastatin Calcium 40 MG Atorvastatin Calcium 40 MG 03/26/2019 12:00:00 AM EST 1.0 {tablet} activ e Atorvastatin Calcium 40 MG eCW1 ([facility]) atorvastatin 40 MG Oral Tablet Atorvastatin Calcium 40 MG Atorvastatin Calcium 40 MG 03/26/2019 12:00:00 AM EST 1.0 {tablet} activ e Atorvastatin Calcium 40 MG eCW1 ([facility]) atorvastatin 40 MG Oral Tablet Atorvastatin Calcium 40 MG Atorvastatin Calcium 40 MG 03/26/2019 12:00:00 AM EST 1.0 {tablet} activ e Atorvastatin Calcium 40 MG eCW1 ([facility]) atorvastatin 40 MG Oral Tablet Atorvastatin Calcium 40 MG Atorvastatin Calcium 40 MG 03/26/2019 12:00:00 AM EST 1.0 {tablet} activ e Atorvastatin Calcium 40 MG eCW1 ([facility]) atorvastatin 40 MG Oral Tablet Atorvastatin Calcium 40 MG Atorvastatin Calcium 40 MG 03/26/2019 12:00:00 AM EST 1.0 {tablet} activ e Atorvastatin Calcium 40 MG eCW1 ([facility]) atorvastatin 40 MG Oral Tablet Atorvastatin Calcium 40 MG Atorvastatin Calcium 40 MG 03/26/2019 12:00:00 AM EST 1.0 {tablet} activ e Atorvastatin Calcium 40 MG eCW1 ([facility]) atorvastatin 40 MG Oral Tablet Atorvastatin Calcium 40 MG Atorvastatin Calcium 40 MG 03/26/2019 12:00:00 AM EST 1.0 {tablet} activ e Atorvastatin Calcium 40 MG eCW1 ([facility]) atorvastatin 40 MG Oral Tablet Atorvastatin Calcium 40 MG Atorvastatin Calcium 40 MG 03/26/2019 12:00:00 AM EST 1.0 {tablet} activ e Atorvastatin Calcium 40 MG eCW1 ([facility]) atorvastatin 40 MG Oral Tablet Atorvastatin Calcium 40 MG Atorvastatin Calcium 40 MG 03/26/2019 12:00:00 AM EST 1.0 {tablet} activ e Atorvastatin Calcium 40 MG eCW1 ([facility]) 10-325 mg 03/26/2019 12:00:00 AM EST tablet [...] activ e Atorvastatin Calcium 40 MG eCW1 ([facility]) atorvastatin 40 MG Oral Tablet Atorvastatin Calcium 40 MG Atorvastatin Calcium 40 MG 03/26/2019 12:00:00 AM EST 1.0 {tablet} activ e Atorvastatin Calcium 40 MG eCW1 ([facility]) 1,250 mcg (50,000 unit) 03/26/2019 12:00:00 AM EST capsule 4 TAKE 1 CAPSULE BY MOUTH ONCE A WEEK ON MONDAYS TAKE 1 CAPSULE BY MOUTH ONCE A WEEK ON MONDAYS SOLD: 03/27/2019 [facility] atorvastatin 40 MG Oral Tablet Atorvastatin Calcium 40 MG Atorvastatin Calcium 40 MG 03/26/2019 12:00:00 AM EST 1.0 {tablet} activ e Atorvastatin Calcium 40 MG eCW1 ([facility]) atorvastatin 40 MG Oral Tablet Atorvastatin Calcium 40 MG Atorvastatin Calcium 40 MG 03/26/2019 12:00:00 AM EST 1.0 {tablet} activ e Atorvastatin Calcium 40 MG eCW1 ([facility]) atorvastatin 40 MG Oral Tablet Atorvastatin Calcium 40 MG Atorvastatin Calcium 40 MG 03/26/2019 12:00:00 AM EST 1.0 {tablet} activ e Atorvastatin Calcium 40 MG eCW1 ([facility]) atorvastatin 40 MG Oral Tablet Atorvastatin Calcium 40 MG Atorvastatin Calcium 40 MG 03/26/2019 12:00:00 AM EST 1.0 {tablet} activ e Atorvastatin Calcium 40 MG eCW1 ([facility]) atorvastatin 40 MG Oral Tablet Atorvastatin Calcium 40 MG Atorvastatin Calcium 40 MG 03/26/2019 12:00:00 AM EST 1.0 {tablet} activ e Atorvastatin Calcium 40 MG eCW1 ([facility]) atorvastatin 40 MG Oral Tablet Atorvastatin Calcium 40 MG Atorvastatin Calcium 40 MG 03/26/2019 12:00:00 AM EST 1.0 {tablet} activ e Atorvastatin Calcium 40 MG eCW1 ([facility]) atorvastatin 40 MG Oral Tablet Atorvastatin Calcium 40 MG Atorvastatin Calcium 40 MG 03/26/2019 12:00:00 AM EST 1.0 {tablet} activ e Atorvastatin Calcium 40 MG eCW1 ([facility]) atorvastatin 40 MG Oral Tablet Atorvastatin Calcium 40 MG Atorvastatin Calcium 40 MG 03/26/2019 12:00:00 AM EST 1.0 {tablet} activ e Atorvastatin Calcium 40 MG eCW1 ([facility]) atorvastatin 40 MG Oral Tablet Atorvastatin Calcium 40 MG Atorvastatin Calcium 40 MG 03/26/2019 12:00:00 AM EST 1.0 {tablet} activ e Atorvastatin Calcium 40 MG eCW1 ([facility]) atorvastatin 40 MG Oral Tablet Atorvastatin Calcium 40 MG Atorvastatin Calcium 40 MG 03/26/2019 12:00:00 AM EST 1.0 {tablet} activ e Atorvastatin Calcium 40 MG eCW1 ([facility]) atorvastatin 40 MG Oral Tablet Atorvastatin Calcium 40 MG Atorvastatin Calcium 40 MG 03/26/2019 12:00:00 AM EST 1.0 {tablet} activ e Atorvastatin Calcium 40 MG eCW1 ([facility]) atorvastatin 40 MG Oral Tablet Atorvastatin Calcium 40 MG Atorvastatin Calcium 40 MG 03/26/2019 12:00:00 AM EST 1.0 {tablet} activ e Atorvastatin Calcium 40 MG eCW1 ([facility]) atorvastatin 40 MG Oral Tablet Atorvastatin Calcium 40 MG Atorvastatin Calcium 40 MG 03/26/2019 12:00:00 AM EST active 1 tablet eCW1 ([facility]) atorvastatin 40 MG Oral Tablet Atorvastatin Calcium 40 MG Atorvastatin Calcium 40 MG 03/26/2019 12:00:00 AM EST 1.0 {tablet} activ e Atorvastatin Calcium 40 MG eCW1 ([facility]) atorvastatin 40 MG Oral Tablet Atorvastatin Calcium 40 MG Atorvastatin Calcium 40 MG 03/26/2019 12:00:00 AM EST 1.0 {tablet} activ e Atorvastatin Calcium 40 MG eCW1 ([facility]) atorvastatin 40 MG Oral Tablet Atorvastatin Calcium 40 MG Atorvastatin Calcium 40 MG 03/26/2019 12:00:00 AM EST 1.0 {tablet} activ e Atorvastatin Calcium 40 MG eCW1 ([facility]) atorvastatin 40 MG Oral Tablet Atorvastatin Calcium 40 MG Atorvastatin Calcium 40 MG 03/26/2019 12:00:00 AM EST 1.0 {tablet} activ e Atorvastatin Calcium 40 MG eCW1 ([facility]) atorvastatin 40 MG Oral Tablet Atorvastatin Calcium 40 MG Atorvastatin Calcium 40 MG 03/26/2019 12:00:00 AM EST 1.0 {tablet} activ e Atorvastatin Calcium 40 MG eCW1 ([facility]) atorvastatin 40 MG Oral Tablet Atorvastatin Calcium 40 MG Atorvastatin Calcium 40 MG 03/26/2019 12:00:00 AM EST 1.0 {tablet} activ e Atorvastatin Calcium 40 MG eCW1 ([facility]) atorvastatin 40 MG Oral Tablet Atorvastatin Calcium 40 MG Atorvastatin Calcium 40 MG 03/26/2019 12:00:00 AM EST 1.0 {tablet} activ e Atorvastatin Calcium 40 MG eCW1 ([facility]) atorvastatin 40 MG Oral Tablet Atorvastatin Calcium 40 MG Atorvastatin Calcium 40 MG 03/26/2019 12:00:00 AM EST 1.0 {tablet} activ e Atorvastatin Calcium 40 MG eCW1 ([facility]) atorvastatin 40 MG Oral Tablet Atorvastatin Calcium 40 MG Atorvastatin Calcium 40 MG 03/26/2019 12:00:00 AM EST 1.0 {tablet} activ e Atorvastatin Calcium 40 MG eCW1 ([facility]) atorvastatin 40 MG Oral Tablet Atorvastatin Calcium 40 MG Atorvastatin Calcium 40 MG 03/26/2019 12:00:00 AM EST 1.0 {tablet} activ e Atorvastatin Calcium 40 MG eCW1 ([facility]) atorvastatin 40 MG Oral Tablet Atorvastatin Calcium 40 MG Atorvastatin Calcium 40 MG 03/26/2019 12:00:00 AM EST 1.0 {tablet} activ e Atorvastatin Calcium 40 MG eCW1 ([facility]) Nystatin 992684 UNT/ML Topical Cream Nystatin 483152 U NIT/GM Nystatin 180385 UNIT/GM 03/26/2019 12:00:00 AM EST active 1 application 2g eCW1 ([facility]) atorvastatin 40 MG Oral Tablet Atorvastatin Calcium 40 MG Atorvastatin Calcium 40 MG 03/26/2019 12:00:00 AM EST 1.0 {tablet} activ e Atorvastatin Calcium 40 MG eCW1 ([facility]) Ergocalciferol 93884 UNT Oral Capsule Vi tamin D (Ergocalciferol) 1.25 MG (38250 UT) Oral Capsule (ERGOCALCIFEROL) Vitamin D (Ergocalciferol) 1.25 MG (5000 0 UT) Oral Capsule (ERGOCALCIFEROL) 03/26/2019 12:00:00 AM EST active [facility] Losartan Potassium 50 MG Oral Tablet [place] Potassium 50 MG Oral Tablet (COZAAR) Losartan Potassium 50 MG Oral Tablet (COZAAR) 03/26/19 12:00:00 AM EST active [facility] atorvastatin 40 MG Oral Tablet Atorvastatin Calcium 40 MG Oral Tablet (LIPITOR) Atorvastatin Calcium 40 MG Oral Tablet (LIPITOR) 03/26/2019 12:00:00 AM EST active [facility] atorvastatin 40 MG Oral Tablet Atorvastatin Calcium 40 MG Atorvastatin Calcium 40 MG 03/26/2019 12:00:00 AM EST active 1 tablet eCW1 ([facility]) atorvastatin 40 MG Oral Tablet Atorvastatin Calcium 40 MG Atorvastatin Calcium 40 MG 03/26/2019 12:00:00 AM EST 1.0 {tablet} activ e Atorvastatin Calcium 40 MG eCW1 ([facility]) atorvastatin 40 MG Oral Tablet Atorvastatin Calcium 40 MG Atorvastatin Calcium 40 MG 03/26/2019 12:00:00 AM EST 1.0 {tablet} activ e Atorvastatin Calcium 40 MG eCW1 ([facility]) atorvastatin 40 MG Oral Tablet Atorvastatin Calcium 40 MG Atorvastatin Calcium 40 MG 03/26/2019 12:00:00 AM EST 1.0 {tablet} activ e Atorvastatin Calcium 40 MG eCW1 ([facility]) Nystatin 952238 UNT/ML Topical Cream Nystatin 345947 U NIT/GM Nystatin [id number] UNIT/GM 03/26/2019 12:00:00 AM EST active 1 application 2g eCW1 ([facility]) atorvastatin 40 MG Oral Tablet Atorvastatin Calcium 40 MG Atorvastatin Calcium 40 MG 03/26/2019 12:00:00 AM EST 1.0 {tablet} activ e Atorvastatin Calcium 40 MG eCW1 ([facility]) atorvastatin 40 MG Oral Tablet Atorvastatin Calcium 40 MG Atorvastatin Calcium 40 MG 03/26/2019 12:00:00 AM EST 1.0 {tablet} activ e Atorvastatin Calcium 40 MG eCW1 ([facility]) atorvastatin 40 MG Oral Tablet Atorvastatin Calcium 40 MG Atorvastatin Calcium 40 MG 03/26/2019 12:00:00 AM EST 1.0 {tablet} activ e Atorvastatin Calcium 40 MG eCW1 ([facility]) atorvastatin 40 MG Oral Tablet Atorvastatin Calcium 40 MG Atorvastatin Calcium 40 MG 03/26/2019 12:00:00 AM EST 1.0 {tablet} activ e Atorvastatin Calcium 40 MG eCW1 ([facility]) atorvastatin 40 MG Oral Tablet Atorvastatin Calcium 40 MG Atorvastatin Calcium 40 MG 03/26/2019 12:00:00 AM EST active 1 tablet eCW1 ([facility]) atorvastatin 40 MG Oral Tablet Atorvastatin Calcium 40 MG Atorvastatin Calcium 40 MG 03/26/2019 12:00:00 AM EST 1.0 {tablet} activ e Atorvastatin Calcium 40 MG eCW1 ([facility]) atorvastatin 40 MG Oral Tablet Atorvastatin Calcium 40 MG Atorvastatin Calcium 40 MG 03/26/2019 12:00:00 AM EST 1.0 {tablet} activ e Atorvastatin Calcium 40 MG eCW1 ([facility]) atorvastatin 40 MG Oral Tablet Atorvastatin Calcium 40 MG Atorvastatin Calcium 40 MG 03/26/2019 12:00:00 AM EST 1.0 {tablet} activ e Atorvastatin Calcium 40 MG eCW1 ([facility]) atorvastatin 40 MG Oral Tablet Atorvastatin Calcium 40 MG Atorvastatin Calcium 40 MG 03/26/2019 12:00:00 AM EST 1.0 {tablet} activ e Atorvastatin Calcium 40 MG eCW1 ([facility]) atorvastatin 40 MG Oral Tablet Atorvastatin Calcium 40 MG Atorvastatin Calcium 40 MG 03/26/2019 12:00:00 AM EST 1.0 {tablet} activ e Atorvastatin Calcium 40 MG eCW1 ([facility]) atorvastatin 40 MG Oral Tablet Atorvastatin Calcium 40 MG Atorvastatin Calcium 40 MG 03/26/2019 12:00:00 AM EST 1.0 {tablet} activ e Atorvastatin Calcium 40 MG eCW1 ([facility]) atorvastatin 40 MG Oral Tablet Atorvastatin Calcium 40 MG Atorvastatin Calcium 40 MG 03/26/2019 12:00:00 AM EST 1.0 {tablet} activ e Atorvastatin Calcium 40 MG eCW1 ([facility]) Nystatin 310429 UNT/ML Topical Cream Nystatin 920272 U NIT/GM Nystatin [id number] UNIT/GM 03/26/2019 12:00:00 AM EST active 1 application 2g eCW1 ([facility]) atorvastatin 40 MG Oral Tablet Atorvastatin Calcium 40 MG Atorvastatin Calcium 40 MG 03/26/2019 12:00:00 AM EST 1.0 {tablet} activ e Atorvastatin Calcium 40 MG eCW1 ([facility]) atorvastatin 40 MG Oral Tablet Atorvastatin Calcium 40 MG Atorvastatin Calcium 40 MG 03/26/2019 12:00:00 AM EST 1.0 {tablet} activ e Atorvastatin Calcium 40 MG eCW1 ([facility]) atorvastatin 40 MG Oral Tablet Atorvastatin Calcium 40 MG Atorvastatin Calcium 40 MG 03/26/2019 12:00:00 AM EST active 1 tablet eCW1 ([facility]) atorvastatin 40 MG Oral Tablet Atorvastatin Calcium 40 MG Atorvastatin Calcium 40 MG 03/26/2019 12:00:00 AM EST 1.0 {tablet} activ e Atorvastatin Calcium 40 MG eCW1 ([facility]) atorvastatin 40 MG Oral Tablet Atorvastatin Calcium 40 MG Atorvastatin Calcium 40 MG 03/26/2019 12:00:00 AM EST 1.0 {tablet} activ e Atorvastatin Calcium 40 MG eCW1 ([facility]) atorvastatin 40 MG Oral Tablet Atorvastatin Calcium 40 MG Atorvastatin Calcium 40 MG 03/26/2019 12:00:00 AM EST 1.0 {tablet} activ e Atorvastatin Calcium 40 MG eCW1 ([facility]) atorvastatin 40 MG Oral Tablet Atorvastatin Calcium 40 MG Atorvastatin Calcium 40 MG 03/26/2019 12:00:00 AM EST 1.0 {tablet} activ e Atorvastatin Calcium 40 MG eCW1 ([facility]) atorvastatin 40 MG Oral Tablet Atorvastatin Calcium 40 MG Atorvastatin Calcium 40 MG 03/26/2019 12:00:00 AM EST 1.0 {tablet} activ e Atorvastatin Calcium 40 MG eCW1 ([facility]) atorvastatin 40 MG Oral Tablet Atorvastatin Calcium 40 MG Atorvastatin Calcium 40 MG 03/26/2019 12:00:00 AM EST active 1 tablet eCW1 ([facility]) atorvastatin 40 MG Oral Tablet Atorvastatin Calcium 40 MG Atorvastatin Calcium 40 MG 03/26/2019 12:00:00 AM EST 1.0 {tablet} activ e Atorvastatin Calcium 40 MG eCW1 ([facility]) atorvastatin 40 MG Oral Tablet Atorvastatin Calcium 40 MG Atorvastatin Calcium 40 MG 03/26/2019 12:00:00 AM EST 1.0 {tablet} activ e Atorvastatin Calcium 40 MG eCW1 ([facility]) atorvastatin 40 MG Oral Tablet Atorvastatin Calcium 40 MG Atorvastatin Calcium 40 MG 03/26/2019 12:00:00 AM EST 1.0 {tablet} activ e Atorvastatin Calcium 40 MG eCW1 ([facility]) atorvastatin 40 MG Oral Tablet Atorvastatin Calcium 40 MG Atorvastatin Calcium 40 MG 03/26/2019 12:00:00 AM EST 1.0 {tablet} activ e Atorvastatin Calcium 40 MG eCW1 ([facility]) atorvastatin 40 MG Oral Tablet Atorvastatin Calcium 40 MG Atorvastatin Calcium 40 MG 03/26/2019 12:00:00 AM EST 1.0 {tablet} activ e Atorvastatin Calcium 40 MG eCW1 ([facility]) atorvastatin 40 MG Oral Tablet Atorvastatin Calcium 40 MG Atorvastatin Calcium 40 MG 03/26/2019 12:00:00 AM EST 1.0 {tablet} activ e Atorvastatin Calcium 40 MG eCW1 ([facility]) atorvastatin 40 MG Oral Tablet Atorvastatin Calcium 40 MG Atorvastatin Calcium 40 MG 03/26/2019 12:00:00 AM EST 1.0 {tablet} activ e Atorvastatin Calcium 40 MG eCW1 ([facility]) Nystatin 414347 UNT/ML Topical Cream Nystatin 084629 U NIT/GM Nystatin [id number] UNIT/GM 03/26/2019 12:00:00 AM EST active 1 application 2g eCW1 ([facility]) atorvastatin 40 MG Oral Tablet Atorvastatin Calcium 40 MG Atorvastatin Calcium 40 MG 03/26/2019 12:00:00 AM EST 1.0 {tablet} activ e Atorvastatin Calcium 40 MG eCW1 ([facility]) atorvastatin 40 MG Oral Tablet Atorvastatin Calcium 40 MG Atorvastatin Calcium 40 MG 03/26/2019 12:00:00 AM EST 1.0 {tablet} activ e Atorvastatin Calcium 40 MG eCW1 ([facility]) atorvastatin 40 MG Oral Tablet Atorvastatin Calcium 40 MG Atorvastatin Calcium 40 MG 03/26/2019 12:00:00 AM EST 1.0 {tablet} activ e Atorvastatin Calcium 40 MG eCW1 ([facility]) atorvastatin 40 MG Oral Tablet Atorvastatin Calcium 40 MG Atorvastatin Calcium 40 MG 03/26/2019 12:00:00 AM EST 1.0 {tablet} activ e Atorvastatin Calcium 40 MG eCW1 ([facility]) atorvastatin 40 MG Oral Tablet Atorvastatin Calcium 40 MG Atorvastatin Calcium 40 MG 03/26/2019 12:00:00 AM EST 1.0 {tablet} activ e Atorvastatin Calcium 40 MG eCW1 ([facility]) atorvastatin 40 MG Oral Tablet Atorvastatin Calcium 40 MG Atorvastatin Calcium 40 MG 03/26/2019 12:00:00 AM EST 1.0 {tablet} activ e Atorvastatin Calcium 40 MG eCW1 ([facility]) atorvastatin 40 MG Oral Tablet Atorvastatin Calcium 40 MG Atorvastatin Calcium 40 MG 03/26/2019 12:00:00 AM EST 1.0 {tablet} activ e Atorvastatin Calcium 40 MG eCW1 ([facility]) atorvastatin 40 MG Oral Tablet Atorvastatin Calcium 40 MG Atorvastatin Calcium 40 MG 03/26/2019 12:00:00 AM EST 1.0 {tablet} activ e Atorvastatin Calcium 40 MG eCW1 ([facility]) atorvastatin 40 MG Oral Tablet Atorvastatin Calcium 40 MG Atorvastatin Calcium 40 MG 03/26/2019 12:00:00 AM EST 1.0 {tablet} activ e Atorvastatin Calcium 40 MG eCW1 ([facility]) atorvastatin 40 MG Oral Tablet Atorvastatin Calcium 40 MG Atorvastatin Calcium 40 MG 03/26/2019 12:00:00 AM EST 1.0 {tablet} activ e Atorvastatin Calcium 40 MG eCW1 ([facility]) Nystatin 103335 UNT/ML Topical Cream Nystatin 175386 U NIT/GM Nystatin 740927 UNIT/GM 03/26/2019 12:00:00 AM EST active 1 application 2g eCW1 ([facility]) atorvastatin 40 MG Oral Tablet Atorvastatin Calcium 40 MG Atorvastatin Calcium 40 MG 03/26/2019 12:00:00 AM EST 1.0 {tablet} activ e Atorvastatin Calcium 40 MG eCW1 ([facility]) atorvastatin 40 MG Oral Tablet Atorvastatin Calcium 40 MG Atorvastatin Calcium 40 MG 03/26/2019 12:00:00 AM EST 1.0 {tablet} activ e Atorvastatin Calcium 40 MG eCW1 ([facility]) atorvastatin 40 MG Oral Tablet Atorvastatin Calcium 40 MG Atorvastatin Calcium 40 MG 03/26/2019 12:00:00 AM EST 1.0 {tablet} activ e Atorvastatin Calcium 40 MG eCW1 ([facility]) atorvastatin 40 MG Oral Tablet Atorvastatin Calcium 40 MG Atorvastatin Calcium 40 MG 03/26/2019 12:00:00 AM EST active 1 tablet eCW1 ([facility]) atorvastatin 40 MG Oral Tablet Atorvastatin Calcium 40 MG Atorvastatin Calcium 40 MG 03/26/2019 12:00:00 AM EST 1.0 {tablet} activ e Atorvastatin Calcium 40 MG eCW1 ([facility]) atorvastatin 40 MG Oral Tablet Atorvastatin Calcium 40 MG Atorvastatin Calcium 40 MG 03/26/2019 12:00:00 AM EST 1.0 {tablet} activ e Atorvastatin Calcium 40 MG eCW1 ([facility]) atorvastatin 40 MG Oral Tablet Atorvastatin Calcium 40 MG Atorvastatin Calcium 40 MG 03/26/2019 12:00:00 AM EST 1.0 {tablet} activ e Atorvastatin Calcium 40 MG eCW1 ([facility]) atorvastatin 40 MG Oral Tablet Atorvastatin Calcium 40 MG Atorvastatin Calcium 40 MG 03/26/2019 12:00:00 AM EST 1.0 {tablet} activ e Atorvastatin Calcium 40 MG eCW1 ([facility]) atorvastatin 40 MG Oral Tablet Atorvastatin Calcium 40 MG Atorvastatin Calcium 40 MG 03/26/2019 12:00:00 AM EST 1.0 {tablet} activ e Atorvastatin Calcium 40 MG eCW1 ([facility]) atorvastatin 40 MG Oral Tablet Atorvastatin Calcium 40 MG Atorvastatin Calcium 40 MG 03/26/2019 12:00:00 AM EST 1.0 {tablet} activ e Atorvastatin Calcium 40 MG eCW1 ([facility]) atorvastatin 40 MG Oral Tablet Atorvastatin Calcium 40 MG Atorvastatin Calcium 40 MG 03/26/2019 12:00:00 AM EST 1.0 {tablet} activ e Atorvastatin Calcium 40 MG eCW1 ([facility]) atorvastatin 40 MG Oral Tablet Atorvastatin Calcium 40 MG Atorvastatin Calcium 40 MG 03/26/2019 12:00:00 AM EST 1.0 {tablet} activ e Atorvastatin Calcium 40 MG eCW1 ([facility]) Nystatin 146912 UNT/ML Topical Cream Nystatin 743652 U NIT/GM Nystatin 368931 UNIT/GM 03/26/2019 12:00:00 AM EST active 1 application eCW1 ([facility]) atorvastatin 40 MG Oral Tablet Atorvastatin Calcium 40 MG Atorvastatin Calcium 40 MG 03/26/2019 12:00:00 AM EST 1.0 {tablet} activ e Atorvastatin Calcium 40 MG eCW1 ([facility]) atorvastatin 40 MG Oral Tablet Atorvastatin Calcium 40 MG Atorvastatin Calcium 40 MG 03/26/2019 12:00:00 AM EST 1.0 {tablet} activ e Atorvastatin Calcium 40 MG eCW1 ([facility]) atorvastatin 40 MG Oral Tablet Atorvastatin Calcium 40 MG Atorvastatin Calcium 40 MG 03/26/2019 12:00:00 AM EST active 1 tablet eCW1 ([facility]) atorvastatin 40 MG Oral Tablet Atorvastatin Calcium 40 MG Atorvastatin Calcium 40 MG 03/26/2019 12:00:00 AM EST 1.0 {tablet} activ e Atorvastatin Calcium 40 MG eCW1 ([facility]) Acetaminophen 325 MG / Oxycodone Hydroch loride 10 MG Oral Tablet [Percocet] Percocet 10-325 MG Percocet 10-325 MG 03/25/2019 12:00:00 AM EST active 1 tablet as needed eCW1 ([facility]) Morphine Sulfate 15 MG Extended Release Oral Tablet Mo rphine Sulfate ER 15 MG Morphine Sulfate ER 15 MG 03/10/2019 12:00:00 AM EST active 1 to 2 as directed eCW1 ([facility]) Morphine Sulfate 15 MG Extended Release Oral Tablet Mo rphine Sulfate ER 15 MG Morphine Sulfate ER 15 MG 03/10/2019 12:00:00 AM EST active 1 to 2 as directed eCW1 ([facility]) Morphine Sulfate 15 MG Extended Release Oral Tablet Mo rphine Sulfate ER 15 MG Morphine Sulfate ER 15 MG 03/10/2019 12:00:00 AM EST active 1 to 2 as directed eCW1 ([facility]) 15 mg 03/10/2019 12:00:00 AM EST tablet extended release 90 TAKE 1 TABLET BY MOUTH IN THE MORNING AND 2 AT BEDTIME MAXIMUM DAILY DOSE = 3 TAKE 1 TABLET BY MOUTH IN THE MORNING AND 2 AT BEDTIME MAXIMUM DAILY DOSE = 3 SOLD: 03/13/2019 [facility] Morphine Sulfate 15 MG Extended Release Oral Tablet Mo rphine Sulfate ER 15 MG Morphine Sulfate ER 15 MG 03/10/2019 12:00:00 AM EST active 1 to 2 as directed eCW1 ([facility]) Morphine Sulfate 15 MG Extended Release Oral Tablet Mo rphine Sulfate ER 15 MG Morphine Sulfate ER 15 MG 03/10/2019 12:00:00 AM EST active 1 to 2 as directed eCW1 ([facility]) 5 mg 03/05/2019 12:00:00 AM EST tablet 60 TAKE ONE TABLET BY MOUTH EVERY 12 HOURS NEEDED FOR ANXIETY MAXIMUM DAILY DOSE = 2 TABLETS TAKE ONE TABLET BY MOUTH EVERY 12 HOURS NEEDED FOR ANXIETY MAXIMUM DAILY DOSE = 2 TABLETS SOLD: 03/05/2019 [facility] Diazepam 5 MG Oral Tablet diazePAM 5 MG Oral Tablet (V ALIUM) diazePAM 5 MG Oral Tablet (VALIUM) 03/05/2019 12:00:00 AM EST 5 mg Oral ac tive Take 1 tablet by mouth every 12 (twelve) hours as needed for Anxiety, Max Daily Dose: 10 mg [facility] 300 mg 02/24/2019 12:00:00 AM [...] 1 tablet as needed eCW1 ([facility]) Acetaminophen 325 MG / Oxycodone Hydroch loride 10 MG Oral Tablet [Percocet] Percocet 10-325 MG Percocet 10-325 MG 02/17/2019 12:00:00 AM EST active 1 tablet as needed eCW1 ([facility]) Acetaminophen 325 MG / Oxycodone Hydroch loride 10 MG Oral Tablet [Percocet] Percocet 10-325 MG Percocet 10-325 MG 02/17/2019 12:00:00 AM EST active 1 tablet as needed eCW1 ([facility]) Acetaminophen 325 MG / Oxycodone Hydroch loride 10 MG Oral Tablet [Percocet] Percocet 10-325 MG Percocet 10-325 MG 02/17/2019 12:00:00 AM EST active 1 tablet as needed eCW1 ([facility]) Acetaminophen 325 MG / Oxycodone Hydroch loride 10 MG Oral Tablet [Percocet] Percocet 10-325 MG Percocet 10-325 MG 02/17/2019 12:00:00 AM EST active 1 tablet as needed eCW1 ([facility]) Percocet 10-325 MG UNK 02/17/2019 12:00:00 AM EST active 1 tablet as needed eCW1 ([facility]) Acetaminophen 325 MG / Oxycodone Hydroch loride 10 MG Oral Tablet [Percocet] Percocet 10-325 MG Percocet 10-325 MG 02/17/2019 12:00:00 AM EST active 1 tablet as needed eCW1 ([facility]) Acetaminophen 325 MG / Oxycodone Hydroch loride 10 MG Oral Tablet [Percocet] Percocet 10-325 MG Percocet 10-325 MG 02/17/2019 12:00:00 AM EST active 1 tablet as needed eCW1 ([facility]) Amitriptyline Hydrochloride 25 MG Oral Tablet AMITRIPTYLINE HCL 02/14/2019 12:00:00 AM EST tablet 90 TAKE THREE TABLETS BY ADENIKE TH EVERY DAY TAKE THREE TABLETS BY MOUTH EVERY DAY SOLD: 03/13/2019 [facility] Amitriptyline Hydrochloride 25 MG Oral Tablet AMITRIPTYLINE HCL 02/14/2019 12:00:00 AM EST tablet 9 TAKE THREE TABLETS BY ADENIKE TH EVERY DAY TAKE THREE TABLETS BY MOUTH EVERY DAY SOLD: 08/15/2019 [facility] Amitriptyline Hydrochloride 25 MG Oral Tablet AMITRIPTYLINE HCL 02/14/2019 12:00:00 AM EST tablet 90 TAKE THREE TABLETS BY ADENIKE TH EVERY DAY TAKE THREE TABLETS BY MOUTH EVERY DAY SOLD: 02/14/2019 [facility] 15 mg 02/13/2019 12:00:00 AM EST tablet extended release 90 TAKE ONE TABLET BY MOUTH EVERY MORNING AND TAKE TWO TABLETS BY MOUTH AT BEDTIME MAXIMUM DAILY DOSE = 3 TAKE ONE TABLET BY MOUTH EVERY MORNING A ND TAKE TWO TABLETS BY MOUTH AT BEDTIME MAXIMUM DAILY DOSE = 3 SOLD: 02/14/2019 [facility] Morphine Sulfate 15 MG Extended Release Oral Tablet Mo rphine Sulfate ER 15 MG Morphine Sulfate ER 15 MG 02/12/2019 12:00:00 AM EST active 1 to 2 as directed eCW1 ([facility]) Morphine Sulfate ER 15 MG UNK 02/12/2019 12:00:00 AM EST active 1 to 2 as directed eCW1 ([facility]) Morphine Sulfate 15 MG Extended Release Oral Tablet Mo rphine Sulfate ER 15 MG Morphine Sulfate ER 15 MG 02/12/2019 12:00:00 AM EST active 1 to 2 as directed eCW1 ([facility]) 5 mg 02/03/2019 12:00:00 AM EST tablet 60 TAKE ONE TABLET BY MOUTH EVERY 12 HOURS NEEDED FOR ANXIETY MAXIMUM DAILY DOSE = 2 TAKE ONE TABLET BY MOUTH EVERY 12 HOURS NEEDED FOR ANXIETY MAXIMUM DAILY DOSE = 2 SOLD: 02/03/2019 [facility] 10-325 mg 01/24/2019 12:00:00 AM EST tablet 120 TAKE ONE TABLET BY MOUTH EVERY 6 HOURS NEEDED MAXIMUM DAILY DOSE = 4 TAKE ONE TABLET BY MOUTH EVERY 6 HOURS NEEDED MAXIMUM DAILY DOSE = 4 SOLD: 01/24/2019 [facility] Acetaminophen 325 MG / Oxycodone Hydroch loride 10 MG Oral Tablet [Percocet] Percocet 10-325 MG Percocet 10-325 MG 01/19/2019 12:00:00 AM EST active 1 tablet as needed eCW1 ([facility]) Morphine Sulfate 15 MG Extended Release Oral Tablet Mo rphine Sulfate ER 15 MG Morphine Sulfate ER 15 MG 01/15/2019 12:00:00 AM EST active 1 to 2 as directed eCW1 ([facility]) 15 mg 01/15/2019 12:00:00 AM EST tablet extended release 90 TAKE 1 TABLET BY MOUTH IN THE MORNING AND 2 AT BEDTIME MAXIMUM DAILY DOSE = 3 TAKE 1 TABLET BY MOUTH IN THE MORNING AND 2 AT BEDTIME MAXIMUM DAILY DOSE = 3 SOLD: 01/15/2019 [facility] Morphine Sulfate 15 MG Extended Release Oral Tablet Mo rphine Sulfate ER 15 MG Morphine Sulfate ER 15 MG 01/15/2019 12:00:00 AM EST active 1 to 2 as directed eCW1 ([facility]) 5 mg 01/07/2019 12:00:00 AM EST tablet 60 TAKE ONE TABLET BY MOUTH EVERY 12 HOURS NEEDED FOR ANXIETY MAXIMUM DAILY DOSE = 2 TAKE ONE TABLET BY MOUTH EVERY 12 HOURS NEEDED FOR ANXIETY MAXIMUM DAILY DOSE = 2 SOLD: 01/09/2019 [facility] duloxetine 30 MG Delayed Release Oral Ca psule DULoxetine HCl 30 MG Oral Capsule Delayed Release Particles (CYMBALTA) DULoxetine HCl 30 MG Oral Capsule Delaye d Release Particles (CYMBALTA) 12/30/2018 12:00:00 AM [facility] Carisoprodol 350 MG Oral Tablet [...] DAILY DOSE = 2 CAPSULE SOLD: 01/24/2019 [facility] Amitriptyline Hydrochloride 25 MG Oral [...] aborted Take 25 mg by mouth daily [facility] Propranolol Hydrochloride 20 MG Oral Tablet propranolo l (INDERAL) 20 MG tablet propranolol (INDERAL) 20 MG tablet 01/13/2018 12:00:00 AM EST aborted TAKE ONE TABLET BY MOUTH EVERY DAY ON EM PTY STOMACH [facility] Oxycodone Hydrochloride 5 MG Oral Tablet oxyCODONE (ROXICODONE) 5 MG immediate release tablet oxyCODONE (ROXICODONE) 5 MG immediate release tablet 0 06/25/2017 12:00:00 AM EDT aborted Take 1 PO q4h prn pain, MDD = 6 [facility] Insurance Providers Payer name Policy type / Coverage type Policy ID Covered libertarian ID Covered libertarian's relationship to daly Policy Daly Plan Information MEDICARE [id number] SP [id number] EXCELLUS BC-BS PPO 306 [id number] SP [id number] MEDICARE C [id number] S [id number] [place]/307 [id number] SP [id number] [place]/307 [id number] SP [id number] [employer] BC-BS PPO 306 [id number] SP [id number] [place] BCBS B [id number] S [id number] TRAVELERS W [id number] Empl [id number] BC[place] 220/720 [id number] SP [id number] BCBS [employer] [id number] SP [id number] [place] 302/307 [id number] SP [id number] [place]/307 [id number] SP [id number] EXCELLUS H [id number] Self [id number] [employer]LL[employer] BC-BS PPO 306 [id number] SP [id number] 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 [id number] SP [id number] TRAVELERS-WC WCB# [id number] SP WCB # [id number] [place]/307 [id number] SP [id number] 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 [id number] SP [id number] [employer]CE[place] BCBS B [id number] S [id number] 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 WCB# [id number] WCB# [id number] 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 [id number] SP [id number] TRAVELERS-WC WCB# [id number] SP WCB # [id number] 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 [id number] SP [id number] 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 [id number] SP [id number] OTHER WORKERS COMPENSATI O WCB#[id number] S WCB#[id number] TRAVELERS WC W [id number] Empl [id number] ANSI-Commercial [id number] ANSI-Not a Secondary Insurance [id number] ANSI-Not a Secondary Insurance [id number] [id number]-[id number] ANSI-Commercial [id number] ANSI-Not a Secondary Insurance [id number]-[id number]-[id number] [id number] [id number]-4q4p-70q3-u9er-[id number] ANSI-Commercial [id number]-[id number] [id number]-[id number] ANSI-Commercial [id number] 5x27d00s-1s9j-9w3n-[id number] ANSI-Not a Secondary Insurance [id number] [id number]-[id number] 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 [facility]# [id number] SP B# [id number] ANSI-Commercial [id number]-ovlr-[id number] ANSI-Not a Secondary Insurance [id number]-f5f7-a98bj 6y10liv [id number]-a6k1-[id number] ANSI-Commercial [id number]-oe73-708j71v65eoe d078ah28-7lg7-877x-hd54-689l93k28jgr ANSI-Not a Secondary Insurance [id number] 2de4cj0 w076a080-161g-905w-5124-39y619zz9zt9 ANSI-Not a Secondary Insurance [id number] 1cbw3o6 06i41d4s-q661-02i4-y092-037222kie8w0 ANSI-Commercial [id number]-[id number]-n930-5c989m40377h ANSI-Commercial v31mwqy1-2q6f-9dl2-m992-632hyzt4r26l x45hviw1-2h0i-0dv4-l708-107prkv4x56j ANSI-Not a Secondary Insurance it82p4r6-1p98-7075-4369-a780h 19o9sp7 bu17p3k5-8t48-3624-3970-q221a40k0gp5 ANSI-Commercial 72e58uc5-3t62-9wic-6466-i5peix00zv84 30w97oz4-2u64-3cah-1865-z5tquv21gm99 ANSI-Not a Secondary Insurance 9u09j990-49p5-59mn-hy82-jq8l2 0294i1t 6y96t785-68w5-36zb-up16-im1o51943m7x ANSI-Commercial 2j542j42-d75o-34i2-1jy2-17ol1m33692l 1f103k89-l89g-53b1-7fj9-24yz7e65993q ANSI-Not a Secondary Insurance 31e1nli5-28p3-482n-t443-2n0d9 ald6w0a 06z5uem6-14j5-075c-z152-3h5f3rmg4j7h ANSI-Not a Secondary Insurance 145vy693-z862-780b-m64s-7g45h pzwx7u1 344fq890-v734-968n-o67v-5h27vkasa5g6 ANSI-Commercial [id number]-mcf9-8214-gr90-r9o5b2ys2916 6x6340le-qaw8-0995-ya90-u5d4x8sn0633 EXCELLUS -BS PPO 306 [id number] SP [id number] ANSI-Not a Secondary Insurance [id number]-np34-skb06 55q999d 703686id-dgy5-358y-vt57-czc1652s149t ANSI-Commercial 905yfn51-ewc7-0oa7-7aci-67p4s5221rld 980esx00-kco8-8ll3-1rki-71f5w8596cap ANSI-Not a Secondary Insurance d51a03y3-5d80-28n9-2ih1-c47r9 u2cg7v6 w72l80d5-0b53-80j8-1jo4-d60q9t6vi4x1 ANSI-Commercial 12697lrd-4834-5kh5-9rw7-3wh6g9133z98 95260ptz-1229-1jm2-5jn4-3ky5o5323h81 ANSI-Commercial 7r29t9o4-509p-3662-p7z8-g47m90o86t4p 9l91v2x1-806o-0547-p6e6-g66g83f69j3y ANSI-Not a Secondary Insurance zz7y9o5l-9456-1s0m-39m5-6lojn [id number] id7h4a8n-9065-4n9x-61l7-7uran23e2563 ANSI-Commercial v2c68s45-r4a7-995t-uq6t-40ms413448h7 w2m60z77-x4q1-672d-dg5e-22bt244850e3 ANSI-Not a Secondary Insurance 08k6dhk7-nb49-0032-p743-31u7h 9qe02y6 07p6tta4-bi32-4469-i046-80u8w0xl48z5 ANSI-Not a Secondary Insurance [id number]-w023-24f3-3ky9-xr5h4 l54h889 l7737728-m889-91p5-8fc3-ff0o9u84g893 ANSI-Commercial 3xr3u9f6-250d-8z62-b4ux-29o9z6657f47 4aj0o4e5-544f-1z66-x6vu-38a1p5510u19 ANSI-Not a Secondary Insurance 0ewqj64d-m0q2-572z-t6w5-jdd5d 051p1ul 5otvv93s-i1m2-294j-k7b9-tqd1g580l5nz ANSI-Commercial 97gm4fce-11g2-6754-5528-h87vtp2jz195 81dd0vfd-09n2-4973-4543-t32jgg3bh515 ANSI-Not a Secondary Insurance f68x02we-s72g-8zru-4z11-i8360 f6m2ef3 k97r43bb-q56v-5vlt-2x11-x1884v3t3rg9 ANSI-Commercial 1q20o0vk-8x33-7424-p011-2m5001k7rd41 8d83a3jx-2e55-6266-y198-8k1822w2fu00 ANSI-Commercial q41au917-8f5j-948o-l9y4-9o952w195f59 i31sj505-8b4k-966v-v6s1-8x242c314r83 ANSI-Not a Secondary Insurance 7pofub4k-p825-050i-u1b5-jg68w 8b4y9v9 8ztnnj3f-y514-317q-p1f4-cw25y3t7b0f8 ANSI-Not a Secondary Insurance gt3gx343-t9e8-0184-w6a2-59521 mh3o30o fb3gl973-d8z4-2154-y1s6-79906bx9l30c ANSI-Commercial 8145m2a3-17hb-5276-4w6z-00ym050zq5j6 9879y3n4-30gg-4940-0l7w-43ee916fm7p3 ANSI-Commercial 020b2j69-me92-53x7-up0w-9re6ihsy4bi8 582o7b48-th77-26q9-qz3r-2wl8tgrr1no4 ANSI-Not a Secondary Insurance 414859i7-t9j7-8deb-m75c-uv7r3 4062d8u 227718f1-b7t0-2aty-s99y-jg3t15309m2y ANSI-Commercial 2i5x1qq2-979m-3e38-5300-985l080p73f6 4j9d3ek5-819w-7n79-3282-240s264y03f1 ANSI-Not a Secondary Insurance j194538x-7x36-9t78-15w4-0wkp1 2p37070 s948327r-1v27-6b73-82j8-1fwr76j98739 ANSI-Not a Secondary Insurance ir1c3zab-0u0z-11qg-k2i1-u07y9 ew833x1 jf5f9cdg-4b6o-71bh-y9b6-d43n9tv257j3 ANSI-Commercial vhtce711-e6d4-14c8-1yfi-i20k225v11l8 yjukq354-t9e2-32a9-8nwa-t74b412y37d8 ANSI-Commercial 905902c6-18c1-7bo0-7943-950i53co5q4n 104173q0-99s7-6gh7-6348-683s97il0v2k ANSI-Not a Secondary Insurance 566h7i6w-8s39-0091-998r-t346p lq1ruw7 720f8g5m-4a75-4950-753y-b776ssw4yhw5 ANSI-Not a Secondary Insurance 883i147l-52en-3svo-6w9f-6u263 g1b49x5 532x248i-26eb-7uoe-4r5h-2p266r5s97w4 ANSI-Commercial a2nd0897-50f3-12s4-67w6-4l12012rgv78 u1xi3689-36s4-06d7-83r3-7t64271nkg15 ANSI-Commercial h964626f-25hx-7363-9w66-83wm9h6r98zs x599661g-66rc-6906-8b64-20sn2f4f15bj ANSI-Not a Secondary Insurance 6o4e7607-d2u3-6fi7-b53i-9mq58 1gl2x12 8e1i0118-x0h1-9rw1-s79w-9ty722fw0w78 ANSI-Commercial 924x90g4-9hdh-75g6-n59m-7tkl6797z821 566q74z9-1wsd-64v5-k36v-5owu0853k954 ANSI-Not a Secondary Insurance t0a3634e-7eg6-744h-8np4-39vfl 1r63yym g1u2911u-8xz8-940y-5ey9-47aao0k48jdm ANSI-Commercial 6snk040a-p047-85a0-d406-23t427810218 9qku874l-o770-13x0-i007-19i185221353 ANSI-Not a Secondary Insurance 1y90ai68-i238-1889-0862-343g1 886a9e5 9q90mr52-s518-2760-8117-531r8331m0k5 ANSI-Commercial 35kr0uj9-1e84-6wl8-9189-8jrx5o9361mm 08nd5zc1-4s53-1xv5-0563-0mkc6x0513qs ANSI-Not a Secondary Insurance 57ql2323-27c6-48vk-c684-e029y m7413r8 17mw9049-91u3-79ms-c252-k114cc2453b9 ANSI-Commercial p6y60130-9au6-2762-9a89-7js83930s82r k9d21269-2fj3-4508-1r77-3cg40339i08n ANSI-Not a Secondary Insurance o137v301-oy29-6ldh-718w-6k931 kjp9q2n r650n423-gh18-2hej-870q-8z961sav6l1z ANSI-Commercial 1ms0si47-o4w8-15du-c88m-36z2840yh5yt 3sq1xi41-r9t4-86ze-o25l-34y2765td2qt ANSI-Not a Secondary Insurance 9j30b7ca-2q67-3u95-63f0-r30u2 4vhwd28 7k29s6xk-7z07-9n65-79c6-v37r35gomo93 ANSI-Not a Secondary Insurance 8wrml8r6-0s53-0ff1-gr6e-701z6 466f9m7 7evhz7d9-6q28-4fl1-ls6u-562a5455z4m3 ANSI-Commercial o527s5xo-02j0-389v-0718-d3px5d5fb6f1 e138o8vi-65r2-387u-7512-g0ar1c1xy6j3 ANSI-Commercial j0f8k784-0611-20j0-69wf-1a20z7ec276b h2w7q359-8976-62p5-37en-9h76n9pl405q ANSI-Not a Secondary Insurance 8783v463-1642-2m22-4evb-h7i71 a8178jg 4065q104-9591-8m13-4xtw-d0b29x7635gv ANSI-Commercial 34241884-f140-1596-ei79-nbl3z2677634 89714058-k203-6789-xj18-bwi7m9773154 ANSI-Not a Secondary Insurance 31n976wn-c596-01fc-w5ma-4ld48 1feaaac 31z212bs-i664-07na-y1gh-6dl682jcnhxp ANSI-Not a Secondary Insurance 11v45y65-i8vm-5094-5sn2-9385l 57764f7 88b00i81-y1ul-6485-8th3-4784w18920v8 ANSI-Commercial 59m3c4v5-775j-1c73-92tv-084bgp1bn479 68z5j6q9-834z-8j83-26ru-739duk6oi419 ANSI-Not a Secondary Insurance 68ci1zim-et35-9168-nz3k-6r8r6 8x2g35f 00hd7qel-ye73-7848-qd5g-6k5o42q5p79h ANSI-Commercial 7l7r8ox2-31b6-08nz-vb03-163663ys3t1s 7s5a1vj0-46f4-26lm-si30-230915kb2m9e ANSI-Commercial aze69689-ai76-0j47-7805-7n66wpaxeo06 jqc77336-mk93-3v99-1843-8o81tmzgdz73 ANSI-Not a Secondary Insurance h79l1yz9-4e9i-65e1-f9qx-uzc78 274745i z17g9lo6-9i4s-93y7-m7rz-per88511578a ANSI-Not a Secondary Insurance ld0408zd-35y1-9t89-0qea-27003 [id number] zw7836zb-24f5-4h31-6lbu-324930049637 ANSI-Commercial v1z9c825-4x15-7711-d060-1n42v9i866fe v6c4a699-3q77-2571-a458-5p52c2n331iw ANSI-Not a Secondary Insurance 9p6mk7f3-2378-0542-588y-183xx n62505b 8f8uo3q3-8651-8838-679y-109ojv94837w ANSI-Commercial 283y499a-8544-3451-179o-29b497nwu1g8 471v620r-7735-2148-176l-22f313rvy1p0 ANSI-Not a Secondary Insurance 44840258-l89m-7ij8-in9s-4i53y 5x11ec5 34064377-r35r-5xg8-oh9t-8l83f5f17aw0 ANSI-Commercial v629t615-i0s7-9mp8-56z2-9wb35i027ej1 n957e898-i0p4-9sf7-92l8-3hu63l316vj8 ANSI-Not a Secondary Insurance m84m4s8l-60e6-951d-c1h2-69576 e56oj9d d23d6h6h-90o6-966k-y5r1-28992l08zn4h ANSI-Commercial 1j8rk9c5-p3o0-5798-jq85-wg223321q4oj 1g9qr5u2-c3v3-8055-ja23-eq773092b8qo ANSI-Commercial 4yon870x-e9m3-00nq-je97-e3efcxog8392 0ejz172f-h3x3-89fg-zd28-r5xxmtjp8058 ANSI-Not a Secondary Insurance 85720919-u090-9211-lrw9-4k00z ah827c9 85151082-k026-9795-zfc6-6g19pyr877g8 ANSI-Not a Secondary Insurance 1849ijm4-btqr-03w7-7750-v5md2 0o848m2 9802wdh9-cxzu-68f4-3423-p5ao95o898w9 ANSI-Commercial q9lc10a6-849w-59o6-c7m7-602959841243 z5sl55j7-246c-53d5-p1i9-866075813109 ANSI-Not a Secondary Insurance 5474fex1-5moh-28a9-8r4c-3i5y2 56t7897 5910stm3-3hwk-99j5-4t8u-7k3n322t5434 ANSI-Commercial me4wlyf0-7kag-09zf-ezha-374l6pc3mn05 lz9ygcx8-5tgd-15ds-voba-282a4et0gk04 ANSI-Commercial p71c4205-10f9-548d-85yt-05g1ic1h7319 l26r3079-86x2-526w-74xr-48c7yu1p2790 ANSI-Not a Secondary Insurance l75b6m0t-rmbf-79lo-6z7d-y8iy0 0m9t221 s97f9j4b-krbw-76js-3s2q-j7wu98t5d149 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 O [id number] O [id number] ANSI-Not a Secondary Insurance 02cg7531-64f2-7y0n-n5u5-8hga0 q362624 48xx0942-01h4-8g1f-z8g2-7wbf1j902842 ANSI-Commercial dfg1v943-wtws-8z45-036b-434889340ad5 omr8h185-jzlu-2d74-833l-193020405we0 ANSI-Not a Secondary Insurance 23r3nv9r-8h69-417f-7fa0-0hv7x 2hud358 24n6sw8m-1g36-169w-1vn2-2jg8w0hzt184 ANSI-Commercial 035ox1z2-f469-6957-174s-93204y6hgf58 500rx6m5-p608-2940-149u-29834p6ark07 ANSI-Commercial l128z961-a3mq-78c4-f91a-s2a67967kpa4 k415n851-v9qp-46p4-t28g-l2g23960bjd2 ANSI-Not a Secondary Insurance uk9o0ip9-f115-9987-6qb3-28d68 64b2exn rc3d8hk1-y332-7002-3ux2-09v1647c3qxb ANSI-Commercial b700m88l-8439-5q69-p7c5-1ri1cs8084v1 h145d97q-3775-4p26-o5q4-2nu5ny7112y0 ANSI-Not a Secondary Insurance 99m8jl6h-q9l6-193j-5l2h-61oe0 4797042 88d5rr6b-i0b2-179k-0q4o-62mf68146237 ANSI-Commercial 399th366-7926-6369-dn9f-l26366x5vk94 759ht033-3231-4288-me7i-f02793x9hp81 ANSI-Not a Secondary Insurance 79536sah-8bck-871x-56v1-0f42i woi5or9 04286phs-7whf-211x-54n3-9y89amqd2op8 ANSI-Commercial 4s29s62c-p03p-8zo0-335n-2x295r2t1351 9f82y70q-y69e-7wx0-514x-1a936j4e3965 ANSI-Not a Secondary Insurance 861j9763-5m97-64nv-g8mp-43w01 489ebec 213h0413-2a36-75na-d2nf-13v65769sbip ANSI-Not a Secondary Insurance 29688755-e7b8-7ze2-yg1h-4q970 p8c399k 20273719-r7o3-4kv0-ff4o-4c182w8b131q ANSI-Commercial 7cfr44ey-6oy7-627k-uo62-531883t9y9fw 4vim31lm-0ox5-739i-dx71-860275n8e7om ANSI-Not a Secondary Insurance 9l91x816-kb48-123j-2z56-44uzt 8b09j3e 0m81v081-le20-787d-1t33-76pjf4r71l2n ANSI-Commercial ezu4250w-d576-54xa-4nq0-n24uchnv8p0h rpr0279a-o757-65jh-7zo4-p01wsehy2r5i ANSI-Commercial 40rt7568-4r8f-7ohc-no4b-w4o0s4m9a5jc 15bp0562-9t0x-2hve-kf9j-y2p9g6a6s4gu ANSI-Not a Secondary Insurance 1d1sc296-1l3f-091d-7u00-8m9c8 1j20975 9t1nk484-5y1v-461h-7v05-8u7n35g81181 ANSI-Commercial 98zc4f26-6802-7oc5-8x6f-1476z96lh132 95rq4j97-0751-9ct0-6z1s-2333d97ef786 ANSI-Not a Secondary Insurance s1mu15h4-lbs3-1x7h-r054-oc9xp 1adx4ft w3wi67f0-aii2-3a7n-h182-as0ad2izo2xx ANSI-Commercial 2k5p33qf-7lki-640k-sc1q-66e5711l4i1j 3s3z49rt-0vtg-357x-tz8r-26t5994f7p1g ANSI-Not a Secondary Insurance 2109853z-253z-1893-9s25-wc3p5 301gn46 1964038l-912g-2802-5d64-ms3d7621lc71 ANSI-Commercial sot91w85-4b8g-53k3-m848-upcjtnf26c11 shx47b45-9r7s-00c8-g810-wdwwerl72r70 ANSI-Not a Secondary Insurance 8b098mdx-9b55-4gzo-t644-9p758 694g610 5x728qcs-4d89-4kdx-d848-2y182708y973 ANSI-Not a Secondary Insurance 6u3ajefb-2hsw-6i3t-v9a0-n05pq 2962424 7m4gefuf-2tyn-3t3i-q6g6-w88zh0291655 ANSI-Commercial 369n5y2s-019f-0w75-x15t-0229731b62p1 368z4f4r-990n-5m08-f84o-1439185y92i1 ANSI-Not a Secondary Insurance 0n7i9n1r-t873-35jp-62a9-9338v 62qwf70 9q3e4a0i-o132-98ju-57a1-4070u02rop52 ANSI-Commercial 1793649p-l37m-4950-4ued-3871q9yr2h9c 9546381w-h17k-9038-8xoj-0554g3ey3b8m ANSI-Commercial qb2l587s-2tz1-8gg1-8b70-n1v61rs487v8 ud6i257q-2it5-5ob6-9l43-b2j19qa562t2 ANSI-Not a Secondary Insurance 38v92my0-7s9g-6fr9-5o32-o6c3s xuhl605 00u65uc2-3c7p-7eg9-5z46-e9s6lyhyh630 ANSI-Not a Secondary Insurance 2054dl91-90q8-048f-2550-2o88z e91223d 1716uj83-66k6-713m-3927-3y75ig91985a ANSI-Commercial 41j5j3k9-8766-6o70-kf15-zb78w3489185 49y1a9b2-8625-3d57-ac71-ed39c8555881 ANSI-Not a Secondary Insurance 422yl38q-82ni-4e5h-9x80-1t67n 1l0h1s5 526ji94h-60mw-2m2c-2s59-3l82r6g5l9p6 ANSI-Commercial 7d87635q-5883-5222-s942-j9c5eerr2wc1 6g94226g-0430-8320-l592-m7u9cjna1ru9 [facility] B [id number] [facility] [id number] ANSI-Commercial 20mfi25n-8969-5950-1637-4kw9sa7u3422 29qmr14g-0742-4386-2628-8kk9kf0h6514 ANSI-Not a Secondary Insurance u7821hcy-0d78-2485-7tg0-p868l 5vvy39b s8359xpc-3r21-7867-1bv9-q041v2ymk70s ANSI-Not a Secondary Insurance 41n06038-09y8-5845-45p1-85314 k3jsdq0 69v97131-13m5-0592-80k1-39046y0ctyz8 ANSI-Commercial hb42x6fu-547e-39l0-05d3-r58tvjqwk20y kc23w4rj-250b-70k4-64x4-w77ypipvl20z ANSI-Not a Secondary Insurance fbj3234r-4s50-2627-o1t0-m1137 7n76mrf efq2355q-3i32-2055-n5q7-r42714h34rnz ANSI-Commercial 295h239p-2s3z-437q-bd8f-44g25ri16tf5 402h323o-8p4c-433w-ow9j-60n46xg53nx3 ANSI-Not a Secondary Insurance r535tncw-zf0t-500c-0z48-21d6p 6vh74r6 h216aaqt-ei8v-450u-4q70-43z6y8fq28m8 ANSI-Commercial e02td7c7-ysis-234t-ett9-g574396211d2 v14yo0d5-kmqv-261e-mcb9-g569588247c1 ANSI-Not a Secondary Insurance e050bwe2-10yx-67h1-zc1r-80192 7benh0w i496jwy1-83je-32e2-hr6i-943658jfbq4j ANSI-Commercial xu2st34g-8cl8-5534-s065-8zou0255654d zl2nl15l-6lt0-1221-t290-0ogp1932071y ANSI-Commercial 487769c2-1e00-85rx-0x64-df12s330m3i4 163201a7-5v85-13dx-2x23-wh55g706c0l7 ANSI-Not a Secondary Insurance 596u51hx-0s95-010q-0k5e-73549 9389m8t 981g15cz-6w91-240i-7c0p-902374838a1j ANSI-Not a Secondary Insurance tm679349-g095-95ya-s640-325dq 13l278v kg343269-u267-81oj-v969-189ae80a862r ANSI-Commercial gnv95d87-7201-36l4-hs04-mck55u338597 qrf43x22-2202-27q4-ro04-gnd62j652859 ANSI-Not a Secondary Insurance v98r43qc-y19k-740b-287q-6f225 i0n7525 w13r15fp-s41q-777v-367u-7e116n9u6612 ANSI-Commercial jaa22wk1-si52-7221-33yh-173y83l976d2 qww19dk2-am10-6058-45yq-263t24g703k5 ANSI-Commercial [id number] ANSI-Not a Secondary Insurance [id number] [facility]- [id number] SP [id number] ANSI-Not a Secondary Insurance [id number] ANSI-Commercial [id number] ANSI-Commercial [id number] ANSI-Not a Secondary Insurance [id number] ANSI-Not a Secondary Insurance [id number] ANSI-Commercial [id number] OTHER WORKERS COMPENSATI O WCB#[id number] S [id number] ANSI-Not a Secondary Insurance [id number] ANSI-Commercial [id number] ANSI-Commercial [id number] ANSI-Not a Secondary Insurance [id number] OTHER WORKERS COMPENSATI O WCB#[id number] S WCB#[id number] [employer] WCB# [id number] SP WCB # [id number] 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 [id number] BS [place] Medigap Part B [id number] Self [id number] [employer] Insurance (WC) Workers Compensation [id number] Self [id number] 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 [id number] SP [id number] 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 [id number] SP [id number] [place] PPO 302/307 [id number] SP [id number] [place] 302/307 [id number] SP [id number] [place] 302/307 [id number] SP [id number] [place] [facility] [place] [place] BCBS B [id number] S VYS [id number] BCBS [place] 304/804 [id number] SP [id number] EXCELLUS H [id number] Self [id number] BLUE CROSS BLUE SHIELD-CLINIC [id number] BCBS [place] 304/804 [id number] SP [id number] SELF PAY 5 UNAVAILABLE 1 UNAVAILA BLE BLUE CROSS BLUE SHIELD-O/P [id number] BCBS [place] 306/8 P [id number] S [id number] Problems, Conditions, and Diagnoses Code Display Name Description Problem Type Effective Dates Data Source(s) F51.01 0220360 Primary insomnia Problem 01/28/2020 12:00:00 AM EST eCW1 ([facility]) F41.0 231875084 Panic disorder Problem 12/24/2019 12:00:00 A M EST eCW1 ([facility]) F41.9 27644938 Anxiety Problem 12/23/2019 12:00:00 AM ES T eCW1 ([facility]) 57955671 Cervical radiculopathy Cervical radiculopathy Problem 08/26/2019 12:00:00 AM EDT MEDENT ([facility]) [id number] 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 Problem 08/26/2019 12:00:00 AM EDT MEDENT ([facility]) 06246222 Neck pain Neck pain Problem 08/26/2019 12:00:00 AM ED T MEDENT ([facility] ) [id number] Essential tremor Essential tremor Problem 08/26/2019 12 :00:00 AM EDT MEDENT ([facility] ) R25.1 [id number] Tremor of both hands Problem 08/25/2019 12:0 0:00 AM EDT eCW1 ([facility]) F41.9 06109012 Anxiety Problem 08/04/2019 12:00:00 AM ED T eCW1 ([facility]) M46.1 [id number] Bilateral sacroiliitis Problem 05/28/2019 12:00:00 AM EDT eCW1 ([facility]) M54.5 903360241 Low back pain Problem 05/28/2019 12:00:00 AM EDT eCW1 ([facility]) M54.5 951571334 Low back pain Problem 05/28/2019 12:00:00 AM EDT eCW1 ([facility]) M46.1 [id number] Bilateral sacroiliitis Problem 05/28/2019 12:00:00 AM EDT eCW1 ([facility]) M46.1 79405075 Sacroiliitis Problem 04/21/2019 12:00:00 AM EDT eCW1 ([facility]) E78.00 236461616 Pure hypercholesterolemia Problem 03/26/2019 12:00:00 AM EST eCW1 ([facility]) J44.9 15084317 Chronic obstructive pulmonary di sease, unspecified COPD type Problem 03/26/2019 12:00:00 AM EST eCW1 ([facility]) E78.00 313697274 Pure hypercholesterolemia Problem 03/26/2019 12:00:00 AM EST eCW1 ([facility]) J44.9 83380212 Chronic obstructive pulmonary di sease, unspecified COPD type Problem 03/26/2019 12:00:00 AM EST eCW1 ([facility]) M75.41 Impingement syndrome of right shoulder I mpingement syndrome of right shoulder Diagnosis 04/01/2019 10:41:11 AM [facility] 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, 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, right upper limb Diagnosis 04/01/2019 10:41:11 AM [facility] Surgeries/Procedures Procedure Description Date Indications Data Source(s) Immunization: Flublok Quadrivalent (18 years & older) 0.5mL IM (Influenza) 01/15/2020 12:00:00 AM EST eCW1 ([facility]) INJ TRIGGER POINT 02/12 MUSCL 06/24/2019 12:00:00 AM EDT eCW1 ([facility]) PHYSICIAN TELEPHONE EVALUATION 11-20 MIN 06/12/2019 12 :00:00 AM EDT eCW1 ([facility]) ESTABILISHED PATIENT [facility] FACILITY CHARGE 020 12:00:00 AM EDT eCW1 ([facility]) SURGERY CASE REQUEST OUTSIDE FACILITY ONLY SURGERY CA SE REQUEST OUTSIDE FACILITY ONLY Routine 04/01/2019 11:37 AM EST Cubital tunnel syndrome on right 04/01/2019 04:37:19 PM EST Cubital tunnel syndrome on right [facility] Cubital tunnel syndrome on right Lumbar/Sacral w/ Imaging 03/25/2019 12:00:00 AM EST eCW1 ([facility]) RADXPS IN END [id number] [id number] 03/25/2019 12:00:00 AM ES T eCW1 ([facility]) Results ID Date Data Source Comprehensive Metabolic Profile (CMP) 12/18/2019 08:27:18 AM EST eCW1 ([facility]) Name Value Range Interpretation Code Description Data Abbey rce(s) Supporting Document(s) 92 GLUCOSE, FASTING eCW1 ([facility]) 15 BLOOD UREA NITROGEN eCW1 ([facility]) 1.01 CREATININE FOR GFR eCW1 ([facility]) 102 CHLORIDE LEVEL eCW1 ([facility]) 135 SODIUM LEVEL eCW1 ([facility]) 5.2 POTASSIUM SERUM eCW1 ([facility]) > 60.0 GLOMERULAR FILTRATION RATE eCW 1 ([facility]) 28 CARBON DIOXIDE LEVEL eCW1 ([facility]) 14 ALT/SGPT eCW1 ([facility]) 9 AST/SGOT eCW1 ([facility]) 9.5 CALCIUM LEVEL eCW1 ([facility]) 7.5 TOTAL PROTEIN eCW1 ([facility]) 0.3 BILIRUBIN,TOTAL eCW1 ([facility]) 101 ALKALINE PHOSPHATASE eCW1 ([facility]) 4.3 ALBUMIN eCW1 ([facility]) 1.3 ALBUMIN/GLOBULIN RATIO eCW1 ([facility]) ID Date Data Source [id number] 12/06/2019 10:45:00 AM EDT [facility] Name Value Range Interpretation Code Description Data Abbey rce(s) Supporting Document(s) SARS coronavirus 2 RNA [facility] This lab was ordered by [facility] and reported by [facility]. ID Date Data Source [facility] FLUORO GUIDE SPINE INJECTION (PAIN) 11/12/2019 05:47:51 AM EDT eCW1 ([facility]) Name Value Range Interpretation Code Description Data Abbey rce(s) Supporting Document(s) [facility] FLUORO GUIDE SPINE IN JECTION (PAIN) eCW1 ([facility]) ID Date Data Source [id number] 11/07/2019 10:00:00 AM EDT [facility] Name Value Range Interpretation Code Description Data Abbey rce(s) Supporting Document(s) SARS coronavirus 2 RNA [facility] This lab was ordered by [facility] and reported by [facility]. ID Date Data Source [id number] 07/11/2019 11:25:00 AM EDT [facility] Name Value Range Interpretation Code Description Data Abbey rce(s) Supporting Document(s) SARS CORONAVIRUS 2 RNA [facility] This lab was ordered by [facility] and reported by [facility]. ID Date Data Source [id number] 04/04/2019 03:33:54 PM [facility] Name Value Range Interpretation Code Description Data Abbey rce(s) Supporting Document(s) Progress Note [facility] [id number] lbm [file] [id number] Procedure Social History Code Duration Value Status Description Data Source(s ) Smoking 02/16/2020 12:00:00 AM EST Current Smoker completed Curre nt Smoker eCW1 ([facility]) Smoking 02/16/2020 12:00:00 AM EST Current Smoker completed Curre nt Smoker eCW1 ([facility]) Smoking 02/16/2020 12:00:00 AM EST Current Smoker completed Curre nt Smoker eCW1 ([facility]) Smoking 01/28/2020 12:00:00 AM EST Current Smoker completed Curre nt Smoker eCW1 ([facility]) Smoking 01/28/2020 12:00:00 AM EST Current Smoker completed Curre nt Smoker eCW1 ([facility]) Smoking 01/28/2020 12:00:00 AM EST Current Smoker completed Curre nt Smoker eCW1 ([facility]) Smoking 01/28/2020 12:00:00 AM EST Current Smoker completed Curre nt Smoker eCW1 ([facility]) Smoking 01/28/2020 12:00:00 AM EST Current Smoker completed Curre nt Smoker eCW1 ([facility]) Smoking 01/28/2020 12:00:00 AM EST Current Smoker completed Curre nt Smoker eCW1 ([facility]) Smoking 01/15/2020 12:00:00 AM EST Current Smoker completed Curre nt Smoker eCW1 ([facility]) Smoking 01/15/2020 12:00:00 AM EST Current Smoker completed Curre nt Smoker eCW1 ([facility]) Smoking 01/15/2020 12:00:00 AM EST Current Smoker completed Curre nt Smoker eCW1 ([facility]) Smoking 01/15/2020 12:00:00 AM EST Current Smoker completed Curre nt Smoker eCW1 ([facility]) Smoking 01/15/2020 12:00:00 AM EST Current Smoker completed Curre nt Smoker eCW1 ([facility]) Smoking 01/15/2020 12:00:00 AM EST Current Smoker completed Curre nt Smoker eCW1 ([facility]) Smoking 01/15/2020 12:00:00 AM EST Current Smoker completed Curre nt Smoker eCW1 ([facility]) Smoking 01/15/2020 12:00:00 AM EST Current Smoker completed Curre nt Smoker eCW1 ([facility]) Smoking 01/15/2020 12:00:00 AM EST Current Smoker completed Curre nt Smoker eCW1 ([facility]) Smoking 01/15/2020 12:00:00 AM EST Current Smoker completed Curre nt Smoker eCW1 ([facility]) Smoking 01/15/2020 12:00:00 AM EST Current Smoker completed Curre nt Smoker eCW1 ([facility]) Smoking 01/15/2020 12:00:00 AM EST Current Smoker completed Curre nt Smoker eCW1 ([facility]) Smoking 01/15/2020 12:00:00 AM EST Current Smoker completed Curre nt Smoker eCW1 ([facility]) Smoking 01/15/2020 12:00:00 AM EST Current Smoker completed Curre nt Smoker eCW1 ([facility]) Smoking 12/24/2019 12:00:00 AM EST Current Smoker completed Curre nt Smoker eCW1 ([facility]) Smoking 12/24/2019 12:00:00 AM EST Current Smoker completed Curre nt Smoker eCW1 ([facility]) Smoking 12/24/2019 12:00:00 AM EST Current Smoker completed Curre nt Smoker eCW1 ([facility]) Smoking 12/24/2019 12:00:00 AM EST Current Smoker completed Curre nt Smoker eCW1 ([facility]) Smoking 12/24/2019 12:00:00 AM EST Current Smoker completed Curre nt Smoker eCW1 ([facility]) Smoking 12/24/2019 12:00:00 AM EST Current Smoker completed Curre nt Smoker eCW1 ([facility]) Smoking 12/24/2019 12:00:00 AM EST Current Smoker completed Curre nt Smoker eCW1 ([facility]) Smoking 12/24/2019 12:00:00 AM EST Current Smoker completed Curre nt Smoker eCW1 ([facility]) Smoking 12/24/2019 12:00:00 AM EST Current Smoker completed Curre nt Smoker eCW1 ([facility]) Smoking 12/24/2019 12:00:00 AM EST Current Smoker completed Curre nt Smoker eCW1 ([facility]) Smoking 12/24/2019 12:00:00 AM EST Current Smoker completed Curre nt Smoker eCW1 ([facility]) Smoking 12/24/2019 12:00:00 AM EST Current Smoker completed Curre nt Smoker eCW1 ([facility]) Smoking 12/24/2019 12:00:00 AM EST Current Smoker completed Curre nt Smoker eCW1 ([facility]) Smoking 12/24/2019 12:00:00 AM EST Current Smoker completed Curre nt Smoker eCW1 ([facility]) Smoking 12/24/2019 12:00:00 AM EST Current Smoker completed Curre nt Smoker eCW1 ([facility]) Smoking 12/24/2019 12:00:00 AM EST Current Smoker completed Curre nt Smoker eCW1 ([facility]) Smoking 12/24/2019 12:00:00 AM EST Current Smoker completed Curre nt Smoker eCW1 ([facility]) Smoking 12/24/2019 12:00:00 AM EST Current Smoker completed Curre nt Smoker eCW1 ([facility]) Smoking 12/24/2019 12:00:00 AM EST Current Smoker completed Curre nt Smoker eCW1 ([facility]) Smoking 12/24/2019 12:00:00 AM EST Current Smoker completed Curre nt Smoker eCW1 ([facility]) Smoking 12/24/2019 12:00:00 AM EST Current Smoker completed Curre nt Smoker eCW1 ([facility]) Smoking 12/24/2019 12:00:00 AM EST Current Smoker completed Curre nt Smoker eCW1 ([facility]) Smoking 12/24/2019 12:00:00 AM EST Current Smoker completed Curre nt Smoker eCW1 ([facility]) Smoking 12/24/2019 12:00:00 AM EST Current Smoker completed Curre nt Smoker eCW1 ([facility]) Smoking 12/24/2019 12:00:00 AM EST Current Smoker completed Curre nt Smoker eCW1 ([facility]) Smoking 12/22/2019 12:00:00 AM EST Current Smoker completed Curre nt Smoker eCW1 ([facility]) Smoking 12/22/2019 12:00:00 AM EST Current Smoker completed Curre nt Smoker eCW1 ([facility]) Smoking 12/22/2019 12:00:00 AM EST Current Smoker completed Curre nt Smoker eCW1 ([facility]) Smoking 12/18/2019 12:00:00 AM EST Current Smoker completed Curre nt Smoker eCW1 ([facility]) Smoking 12/18/2019 12:00:00 AM EST Current Smoker completed Curre nt Smoker eCW1 ([facility]) Smoking 12/18/2019 12:00:00 AM EST Current Smoker completed Curre nt Smoker eCW1 ([facility]) Smoking 12/18/2019 12:00:00 AM EST Current Smoker completed Curre nt Smoker eCW1 ([facility]) Smoking 12/18/2019 12:00:00 AM EST Current Smoker completed Curre nt Smoker eCW1 ([facility]) Smoking 12/18/2019 12:00:00 AM EST Current Smoker completed Curre nt Smoker eCW1 ([facility]) Smoking 12/11/2019 12:00:00 AM EDT Current Smoker completed Curre nt Smoker eCW1 ([facility]) Smoking 12/11/2019 12:00:00 AM EDT Current Smoker completed Curre nt Smoker eCW1 ([facility]) Smoking 12/11/2019 12:00:00 AM EDT Current Smoker completed Curre nt Smoker eCW1 ([facility]) Smoking 12/11/2019 12:00:00 AM EDT Current Smoker completed Curre nt Smoker eCW1 ([facility]) Smoking 12/09/2019 12:00:00 AM EDT Current Smoker completed Curre nt Smoker eCW1 ([facility]) Smoking 11/30/2019 12:00:00 AM EDT Current Smoker completed Curre nt Smoker eCW1 ([facility]) Smoking 11/30/2019 12:00:00 AM EDT Current Smoker completed Curre nt Smoker eCW1 ([facility]) Smoking 11/30/2019 12:00:00 AM EDT Current Smoker completed Curre nt Smoker eCW1 ([facility]) Smoking 11/30/2019 12:00:00 AM EDT Current Smoker completed Curre nt Smoker eCW1 ([facility]) Smoking 11/30/2019 12:00:00 AM EDT Current Smoker completed Curre nt Smoker eCW1 ([facility]) Smoking 11/30/2019 12:00:00 AM EDT Current Smoker completed Curre nt Smoker eCW1 ([facility]) Smoking 11/24/2019 12:00:00 AM EDT Current Smoker completed Curre nt Smoker eCW1 ([facility]) Smoking 11/12/2019 12:00:00 AM EDT Current Smoker completed Curre nt Smoker eCW1 ([facility]) Smoking 11/12/2019 12:00:00 AM EDT Current Smoker completed Curre nt Smoker eCW1 ([facility]) Smoking 09/04/2019 12:00:00 AM EDT Current Smoker completed Curre nt Smoker eCW1 ([facility]) Smoking 09/04/2019 12:00:00 AM EDT Current Smoker completed Curre nt Smoker eCW1 ([facility]) Smoking 09/04/2019 12:00:00 AM EDT Current Smoker completed Curre nt Smoker eCW1 ([facility]) Smoking 09/04/2019 12:00:00 AM EDT Current Smoker completed Curre nt Smoker eCW1 ([facility]) Smoking 09/04/2019 12:00:00 AM EDT Current Smoker completed Curre nt Smoker eCW1 ([facility]) Smoking 09/04/2019 12:00:00 AM EDT Current Smoker completed Curre nt Smoker eCW1 ([facility]) Smoking 09/04/2019 12:00:00 AM EDT Current Smoker completed Curre nt Smoker eCW1 ([facility]) Smoking 08/31/2019 12:00:00 AM EDT Current Smoker completed Curre nt Smoker eCW1 ([facility]) Smoking 08/31/2019 12:00:00 AM EDT Current Smoker completed Curre nt Smoker eCW1 ([facility]) Smoking 08/31/2019 12:00:00 AM EDT Current Smoker completed Curre nt Smoker eCW1 ([facility]) Smoking 08/25/2019 12:00:00 AM EDT Current Smoker completed Curre nt Smoker eCW1 ([facility]) Smoking 08/25/2019 12:00:00 AM EDT Current Smoker completed Curre nt Smoker eCW1 ([facility]) Smoking 08/25/2019 12:00:00 AM EDT Current Smoker completed Curre nt Smoker eCW1 ([facility]) Smoking 08/25/2019 12:00:00 AM EDT Current Smoker completed Curre nt Smoker eCW1 ([facility]) Smoking 08/25/2019 12:00:00 AM EDT Current Smoker completed Curre nt Smoker eCW1 ([facility]) Smoking 08/04/2019 12:00:00 AM EDT Current Smoker completed Curre nt Smoker eCW1 ([facility]) Smoking 07/13/2019 12:00:00 AM EDT Current Smoker completed Curre nt Smoker eCW1 ([facility]) Smoking 07/13/2019 12:00:00 AM EDT Current Smoker completed Curre nt Smoker eCW1 ([facility]) Smoking 07/13/2019 12:00:00 AM EDT Current Smoker completed Curre nt Smoker eCW1 ([facility]) Smoking 07/13/2019 12:00:00 AM EDT Current Smoker completed Curre nt Smoker eCW1 ([facility]) Alcohol intake 04/04/2019 12:00:00 AM EST Current non-d alma of alcohol (finding) completed Current non-drinker of alcohol (finding) [facility] Cigarette pack-years 04/04/2019 12:00:00 AM EST UNK completed [facility] Cigarettes smoked current (pack per day) - Reported 04/04/19 20 12:00:00 AM EST UNK completed [facility] Smoking 04/04/2019 12:00:00 AM EST Current every day smoker co mpleted Current every day smoker [facility] Vital Signs ID Date Data Source UNK Name Value Range Interpretation Code Description Data Source(s) Diastolic blood pressure 84 mm[Hg] 84 mm[Hg] eCW1 ([facility]) Systolic blood pressure 130 mm[Hg] 130 mm[Hg] e CW1 ([facility]) Body temperature 97.5 [degF] 97.5 [degF] eCW1 ( [facility]) Respiratory rate 18 /min 18 /min eCW1 ([facility]) Heart rate 102 /min 102 /min eCW1 ([facility]) Body mass index (BMI) [Ratio] 23.03 kg/m2 23.03 kg/m2 W1 ([facility]) Body height 69 [in_i] 69 [in_i] eCW1 ([facility]) Body weight 156 [lb_av] 156 [lb_av] eCW1 ([facility]) Diastolic blood pressure 78 mm[Hg] 78 mm[Hg] eCW1 ([facility]) Systolic blood pressure 132 mm[Hg] 132 mm[Hg] e CW1 ([facility]) Body temperature 98.0 [degF] 98.0 [degF] eCW1 ( [facility]) Respiratory rate 18 /min 18 /min eCW1 ([facility]) Heart rate 99 /min 99 /min eCW1 ([facility]) Body mass index (BMI) [Ratio] 23.33 kg/m2 23.33 kg/m2 eCW1 ([facility]) Body height 69 [in_i] 69 [in_i] eCW1 ([facility]) Body weight 158 [lb_av] 158 [lb_av] eCW1 ([facility]) Diastolic blood pressure 90 mm[Hg] 90 mm[Hg] eCW1 ([facility]) Systolic blood pressure 140 mm[Hg] 140 mm[Hg] e CW1 ([facility]) Body temperature [degF] eCW1 ([facility]) Respiratory rate 18 /min 18 /min eCW1 ([facility]) Heart rate 112 /min 112 /min eCW1 ([facility]) Body mass index (BMI) [Ratio] 23.18 kg/m2 23.18 kg/m2 eCW1 ([facility]) Body height 69 [in_i] 69 [in_i] eCW1 ([facility]) Body weight 157 [lb_av] 157 [lb_av] eCW1 ([facility]) Diastolic blood pressure 80 mm[Hg] 80 mm[Hg] eCW1 ([facility]) Systolic blood pressure 130 mm[Hg] 130 mm[Hg] e CW1 ([facility]) Body temperature 98.2 [degF] 98.2 [degF] eCW1 ( [facility]) Respiratory rate 18 /min 18 /min eCW1 ([facility]) Heart rate 104 /min 104 /min eCW1 ([facility]) Body mass index (BMI) [Ratio] 23.45 kg/m2 23.45 kg/m2 eCW1 ([facility]) Body height 69 [in_i] 69 [in_i] eCW1 ([facility]) Body weight 158.8 [lb_av] 158.8 [lb_av] eCW1 ([facility]) Diastolic blood pressure 100 mm[Hg] 100 mm[Hg] eCW1 ([facility]) Systolic blood pressure 150 mm[Hg] 150 mm[Hg] e CW1 ([facility]) Body temperature 98.2 [degF] 98.2 [degF] eCW1 ( [facility]) Respiratory rate 18 /min 18 /min eCW1 ([facility]) Heart rate 92 /min 92 /min eCW1 ([facility]) Body mass index (BMI) [Ratio] 23.74 kg/m2 23.74 kg/m2 eCW1 ([facility]) Body height 69 [in_i] 69 [in_i] eCW1 ([facility]) Body weight 160.8 [lb_av] 160.8 [lb_av] eCW1 ([facility]) Diastolic blood pressure 98 mm[Hg] 98 mm[Hg] eCW1 ([facility]) Systolic blood pressure 146 mm[Hg] 146 mm[Hg] e CW1 ([facility]) Body temperature 97.6 [degF] 97.6 [degF] eCW1 ( [facility]) Respiratory rate 18 /min 18 /min eCW1 ([facility]) Heart rate 75 /min 75 /min eCW1 ([facility]) Body mass index (BMI) [Ratio] 23.86 kg/m2 23.86 kg/m2 eCW1 ([facility]) Body height 69 [in_i] 69 [in_i] eCW1 ([facility]) Body weight 161.6 [lb_av] 161.6 [lb_av] eCW1 ([facility]) Diastolic blood pressure 93 mm[Hg] 93 mm[Hg] eCW1 ([facility]) Systolic blood pressure 136 mm[Hg] 136 mm[Hg] e CW1 ([facility]) Body temperature 98.6 [degF] 98.6 [degF] eCW1 ( [facility]) Respiratory rate 16 /min 16 /min eCW1 ([facility]) Heart rate 69 /min 69 /min eCW1 ([facility]) Body mass index (BMI) [Ratio] 23.63 kg/m2 23.63 kg/m2 eCW1 ([facility]) Body height 69 [in_i] 69 [in_i] eCW1 ([facility]) Body weight 160 [lb_av] 160 [lb_av] eCW1 ([facility]) Diastolic blood pressure 96 mm[Hg] 96 mm[Hg] eCW1 ([facility]) Systolic blood pressure 148 mm[Hg] 148 mm[Hg] e CW1 ([facility]) Body temperature 98.3 [degF] 98.3 [degF] eCW1 ( [facility]) Respiratory rate 18 /min 18 /min eCW1 ([facility]) Heart rate 73 /min 73 /min eCW1 ([facility]) Body mass index (BMI) [Ratio] 23.42 kg/m2 23.42 kg/m2 eCW1 ([facility]) Body height 69 [in_i] 69 [in_i] eCW1 ([facility]) Body weight 158.6 [lb_av] 158.6 [lb_av] eCW1 ([facility]) Diastolic blood pressure 80 mm[Hg] 80 mm[Hg] eCW1 ([facility]) Systolic blood pressure 120 mm[Hg] 120 mm[Hg] e CW1 ([facility]) Body temperature 97.8 [degF] 97.8 [degF] eCW1 ( [facility]) Respiratory rate 18 /min 18 /min eCW1 ([facility]) Heart rate 103 /min 103 /min eCW1 ([facility]) Body mass index (BMI) [Ratio] 24.19 kg/m2 24.19 kg/m2 eCW1 ([facility]) Body height 69 [in_i] 69 [in_i] eCW1 ([facility]) Body weight 163.8 [lb_av] 163.8 [lb_av] eCW1 ([facility]) Diastolic blood pressure 84 mm[Hg] 84 mm[Hg] eCW1 ([facility]) Systolic blood pressure 198 mm[Hg] 198 mm[Hg] e CW1 ([facility]) Body temperature 97.0 [degF] 97.0 [degF] eCW1 ( [facility]) Respiratory rate 18 /min 18 /min eCW1 ([facility]) Heart rate 89 /min 89 /min eCW1 ([facility]) Body mass index (BMI) [Ratio] 24.25 kg/m2 24.25 kg/m2 eCW1 ([facility]) Body height 69 [in_i] 69 [in_i] eCW1 ([facility]) Body weight 164.2 [lb_av] 164.2 [lb_av] eCW1 ([facility]) Body mass index (BMI) [Ratio] 24.9 kg/m2 24.9 k g/m2 MEDENT ([facility] ) Body weight 164.00 [lb_av] 164.00 [lb_av] MEDEN T ([facility] ) Body height 68 [in_i] 68 [in_i] MEDENT ([facility] ) 5'8" Respiratory rate 14 /min 14 /min MED[facility] ( [facility] ) Heart rate 78 /min 78 /min [facility] ([facility] ) Diastolic blood pressure 80 mm[Hg] 80 mm[Hg] MEDENT ([facility], ) Systolic blood pressure 120 mm[Hg] 120 mm[Hg] M EDENT ([facility], ) Diastolic blood pressure 82 mm[Hg] 82 mm[Hg] eCW1 ([facility]) Systolic blood pressure 120 mm[Hg] 120 mm[Hg] e CW1 ([facility]) Body temperature 98 [degF] 98 [degF] eCW1 ([facility]) Respiratory rate 18 /min 18 /min eCW1 ([facility]) Heart rate 125 /min 125 /min eCW1 ([facility]) Body mass index (BMI) [Ratio] 24.19 kg/m2 24.19 kg/m2 eCW1 ([facility]) Body height 69 [in_i] 69 [in_i] eCW1 ([facility]) Body weight 163.8 [lb_av] 163.8 [lb_av] eCW1 ([facility]) Diastolic blood pressure 78 mm[Hg] 78 mm[Hg] eCW1 ([facility]) Systolic blood pressure 130 mm[Hg] 130 mm[Hg] e CW1 ([facility]) Body temperature 98.5 [degF] 98.5 [degF] eCW1 ( [facility]) Respiratory rate 18 /min 18 /min eCW1 ([facility]) Heart rate 102 /min 102 /min eCW1 ([facility]) Body mass index (BMI) [Ratio] 24.57 kg/m2 24.57 kg/m2 eCW1 ([facility]) Body height 69 [in_i] 69 [in_i] eCW1 ([facility]) Body weight 166.4 [lb_av] 166.4 [lb_av] eCW1 ([facility]) Diastolic blood pressure 70 mm[Hg] 70 mm[Hg] eCW1 ([facility]) Systolic blood pressure 110 mm[Hg] 110 mm[Hg] e CW1 ([facility]) Body temperature 97.3 [degF] 97.3 [degF] eCW1 ( [facility]) Respiratory rate 18 /min 18 /min eCW1 ([facility]) Heart rate 107 /min 107 /min eCW1 ([facility]) Body mass index (BMI) [Ratio] 24.22 kg/m2 24.22 kg/m2 eCW1 ([facility]) Body height 69 [in_i] 69 [in_i] eCW1 ([facility]) Body weight 164 [lb_av] 164 [lb_av] eCW1 ([facility]) Diastolic blood pressure 85 mm[Hg] 85 mm[Hg] eCW1 ([facility]) Systolic blood pressure 112 mm[Hg] 112 mm[Hg] e CW1 ([facility]) Body temperature 98.3 [degF] 98.3 [degF] eCW1 ( [facility]) Respiratory rate 18 /min 18 /min eCW1 ([facility]) Heart rate 107 /min 107 /min eCW1 ([facility]) Body mass index (BMI) [Ratio] 23.95 kg/m2 23.95 kg/m2 eCW1 ([facility]) Body height 69 [in_i] 69 [in_i] eCW1 ([facility]) Body weight 162.2 [lb_av] 162.2 [lb_av] eCW1 ([facility]) Diastolic blood pressure 88 mm[Hg] 88 mm[Hg] eCW1 ([facility]) Systolic blood pressure 135 mm[Hg] 135 mm[Hg] e CW1 ([facility]) Body temperature 97.5 [degF] 97.5 [degF] eCW1 ( [facility]) Respiratory rate 18 /min 18 /min eCW1 ([facility]) Heart rate 86 /min 86 /min eCW1 ([facility]) Body mass index (BMI) [Ratio] 24.22 kg/m2 24.22 kg/m2 eCW1 ([facility]) Body height 69 [in_us] 69 [in_us] eCW1 ([facility]) Body weight Measured 164 [lb_av] 164 [lb_av] eC W1 ([facility]) Diastolic blood pressure 86 mm[Hg] 86 mm[Hg] eCW1 ([facility]) Systolic blood pressure 131 mm[Hg] 131 mm[Hg] e CW1 ([facility]) Body temperature 97.9 [degF] 97.9 [degF] eCW1 ( [facility]) Respiratory rate 16 /min 16 /min eCW1 ([facility]) Heart rate 93 /min 93 /min eCW1 ([facility]) Body mass index (BMI) [Ratio] 24.22 kg/m2 24.22 kg/m2 eCW1 ([facility]) Body height 69 [in_us] 69 [in_us] eCW1 ([facility]) Body weight Measured 164 [lb_av] 164 [lb_av] eC W1 ([facility]) Diastolic blood pressure 94 mm[Hg] 94 mm[Hg] eCW1 ([facility]) Systolic blood pressure 137 mm[Hg] 137 mm[Hg] e CW1 ([facility]) Body temperature 98.5 [degF] 98.5 [degF] eCW1 ( [facility]) Respiratory rate 16 /min 16 /min eCW1 ([facility]) Heart rate 90 /min 90 /min eCW1 ([facility]) Body mass index (BMI) [Ratio] 24.22 kg/m2 24.22 kg/m2 eCW1 ([facility]) Body height 69 [in_us] 69 [in_us] eCW1 ([facility]) Body weight Measured 164 [lb_av] 164 [lb_av] eC W1 ([facility]) Diastolic blood pressure 76 mm[Hg] 76 mm[Hg] eCW1 ([facility]) Systolic blood pressure 132 mm[Hg] 132 mm[Hg] e CW1 ([facility]) Body temperature 97.9 [degF] 97.9 [degF] eCW1 ( [facility]) Respiratory rate 18 /min 18 /min eCW1 ([facility]) Heart rate 81 /min 81 /min eCW1 ([facility]) Body mass index (BMI) [Ratio] 24.36 kg/m2 24.36 kg/m2 eCW1 ([facility]) Body height 69 [in_us] 69 [in_us] eCW1 ([facility]) Body weight Measured 165 [lb_av] 165 [lb_av] eC W1 ([facility]) Diastolic blood pressure 86 mm[Hg] 86 mm[Hg] eCW1 ([facility]) Systolic blood pressure 138 mm[Hg] 138 mm[Hg] e CW1 ([facility]) Body temperature 97.1 [degF] 97.1 [degF] eCW1 ( [facility]) Respiratory rate 18 /min 18 /min eCW1 ([facility]) Heart rate 77 /min 77 /min eCW1 ([facility]) Body mass index (BMI) [Ratio] 24.36 kg/m2 24.36 kg/m2 eCW1 ([facility]) Body height 69 [in_us] 69 [in_us] eCW1 ([facility]) Body weight Measured 165.0 [lb_av] 165.0 [lb_av ] eCW1 ([facility]) Diastolic blood pressure 91 mm[Hg] 91 mm[Hg] eCW1 ([facility]) Systolic blood pressure 145 mm[Hg] 145 mm[Hg] e CW1 ([facility]) Body temperature 97.9 [degF] 97.9 [degF] eCW1 ( [facility]) Respiratory rate 18 /min 18 /min eCW1 ([facility]) Heart rate 76 /min 76 /min eCW1 ([facility]) Body mass index (BMI) [Ratio] 24.13 kg/m2 24.13 kg/m2 eCW1 ([facility]) Body height 69 [in_us] 69 [in_us] eCW1 ([facility]) Body weight Measured 163.4 [lb_av] 163.4 [lb_av ] eCW1 ([facility]) Diastolic blood pressure 101 mm[Hg] 101 mm[Hg] eCW1 ([facility]) Systolic blood pressure 141 mm[Hg] 141 mm[Hg] e CW1 ([facility]) Body temperature 97.9 [degF] 97.9 [degF] eCW1 ( [facility]) Respiratory rate 18 /min 18 /min eCW1 ([facility]) Heart rate 82 /min 82 /min eCW1 ([facility]) Body mass index (BMI) [Ratio] 24.13 kg/m2 24.13 kg/m2 eCW1 ([facility]) Body height 69 [in_us] 69 [in_us] eCW1 ([facility]) Body weight Measured 163.4 [lb_av] 163.4 [lb_av ] eCW1 ([facility]) ID Date Data Source [id number] 06/01/2019 11:45:02 AM [facility] Name Value Range Interpretation Code Description Data Source(s) WEIGHT RECORDED 165 lb 165 lb [facility] Body height Measured 69 in 69 in [facility] Patient Treatment Plan of Care Planned Activity Planned Date Details Description Data Source (s) Morphine Sulfate 15 MG Oral Tablet 02/23/2020 12:00:00 AM EST eCW1 ([facility]) Acetaminophen 325 MG / Oxycodone Hydrochloride 10 MG O ral Tablet [Percocet] 02/23/2020 12:00:00 AM EST eCW1 ([facility]) Morphine Sulfate 15 MG Oral Tablet 02/23/2020 12:00:00 AM EST eCW1 ([facility]) Acetaminophen 325 MG / Oxycodone Hydrochloride 10 MG O ral Tablet [Percocet] 02/23/2020 12:00:00 AM EST eCW1 ([facility]) Morphine Sulfate 15 MG Oral Tablet 02/23/2020 12:00:00 AM EST eCW1 ([facility]) Acetaminophen 325 MG / Oxycodone Hydrochloride 10 MG O ral Tablet [Percocet] 02/23/2020 12:00:00 AM EST eCW1 ([facility]) Budesonide 180 MCG/ACT 02/16/2020 12:00:00 AM EST eCW1 ([facility]) Budesonide 180 MCG/ACT 02/16/2020 12:00:00 AM EST eCW1 ([facility]) Budesonide 180 MCG/ACT 02/16/2020 12:00:00 AM EST eCW1 ([facility]) Albuterol 0.833 MG/ML / Ipratropium Cullen 0.167 MG/M L Inhalant Solution 01/28/2020 12:00:00 AM EST eCW1 ([facility]) Albuterol 0.833 MG/ML / Ipratropium Cullen 0.167 MG/M L Inhalant Solution 01/28/2020 12:00:00 AM EST eCW1 ([facility]) Albuterol 0.833 MG/ML / Ipratropium Cullen 0.167 MG/M L Inhalant Solution 01/28/2020 12:00:00 AM EST eCW1 ([facility]) Albuterol 0.833 MG/ML / Ipratropium Cullen 0.167 MG/M L Inhalant Solution 01/28/2020 12:00:00 AM EST eCW1 ([facility]) Albuterol 0.833 MG/ML / Ipratropium Cullen 0.167 MG/M L Inhalant Solution 01/28/2020 12:00:00 AM EST eCW1 ([facility]) Albuterol 0.833 MG/ML / Ipratropium Cullen 0.167 MG/M L Inhalant Solution 01/28/2020 12:00:00 AM EST eCW1 ([facility]) Morphine Sulfate ER 15 MG 01/27/2020 12:00:00 AM EST eCW1 ([facility]) Morphine Sulfate 15 MG Extended Release Oral Tablet 01/27/20 20 12:00:00 AM EST eCW1 ([facility]) Morphine Sulfate 15 MG Oral Tablet 01/27/2020 12:00:00 AM EST eCW1 ([facility]) Morphine Sulfate ER 15 MG 01/27/2020 12:00:00 AM EST eCW1 ([facility]) Morphine Sulfate 15 MG Extended Release Oral Tablet 01/27/20 20 12:00:00 AM EST eCW1 ([facility]) Morphine Sulfate 15 MG Oral Tablet 01/27/2020 12:00:00 AM EST eCW1 ([facility]) Morphine Sulfate ER 15 MG 01/26/2020 12:00:00 AM EST eCW1 ([facility]) Acetaminophen 325 MG / Oxycodone Hydrochloride 10 MG O ral Tablet [Percocet] 01/22/2020 12:00:00 AM EST eCW1 ([facility]) Acetaminophen 325 MG / Oxycodone Hydrochloride 10 MG O ral Tablet [Percocet] 01/22/2020 12:00:00 AM EST eCW1 ([facility]) Acetaminophen 325 MG / Oxycodone Hydrochloride 10 MG O ral Tablet [Percocet] 01/22/2020 12:00:00 AM EST eCW1 ([facility]) Acetaminophen 325 MG / Oxycodone Hydrochloride 10 MG O ral Tablet [Percocet] 01/22/2020 12:00:00 AM EST eCW1 ([facility]) Acetaminophen 325 MG / Oxycodone Hydrochloride 10 MG O ral Tablet [Percocet] 01/22/2020 12:00:00 AM EST eCW1 ([facility]) Acetaminophen 325 MG / Oxycodone Hydrochloride 10 MG O ral Tablet [Percocet] 01/22/2020 12:00:00 AM EST eCW1 ([facility]) Acetaminophen 325 MG / Oxycodone Hydrochloride 10 MG O ral Tablet [Percocet] 01/22/2020 12:00:00 AM EST eCW1 ([facility]) Morphine Sulfate ER 15 MG 01/20/2020 12:00:00 AM EST eCW1 ([facility]) Morphine Sulfate ER 15 MG 01/20/2020 12:00:00 AM EST eCW1 ([facility]) Morphine Sulfate ER 15 MG 01/20/2020 12:00:00 AM EST eCW1 ([facility]) Morphine Sulfate ER 15 MG 01/20/2020 12:00:00 AM EST eCW1 ([facility]) Morphine Sulfate ER 15 MG 01/20/2020 12:00:00 AM EST eCW1 ([facility]) Morphine Sulfate ER 15 MG 01/20/2020 12:00:00 AM EST eCW1 ([facility]) Morphine Sulfate ER 15 MG 01/20/2020 12:00:00 AM EST eCW1 ([facility]) duloxetine 30 MG Delayed Release Oral Capsule [Cymbalt a] 01/13/2020 12:00:00 AM EST eCW1 ([facility]) Spiriva Respimat 1.25 MCG/ACT 12/29/2019 12:00:00 AM EST eCW1 ([facility]) Spiriva Respimat 1.25 MCG/ACT 12/29/2019 12:00:00 AM EST eCW1 ([facility]) Spiriva Respimat 1.25 MCG/ACT 12/29/2019 12:00:00 AM EST eCW1 ([facility]) Spiriva Respimat 1.25 MCG/ACT 12/29/2019 12:00:00 AM EST eCW1 ([facility]) Spiriva Respimat 1.25 MCG/ACT 12/29/2019 12:00:00 AM EST eCW1 ([facility]) Spiriva Respimat 1.25 MCG/ACT 12/29/2019 12:00:00 AM EST eCW1 ([facility]) Spiriva Respimat 1.25 MCG/ACT 12/29/2019 12:00:00 AM EST eCW1 ([facility]) Spiriva Respimat 1.25 MCG/ACT 12/29/2019 12:00:00 AM EST eCW1 ([facility]) Spiriva Respimat 1.25 MCG/ACT 12/29/2019 12:00:00 AM EST eCW1 ([facility]) Spiriva Respimat 1.25 MCG/ACT 12/29/2019 12:00:00 AM EST eCW1 ([facility]) Acetaminophen 325 MG / Oxycodone Hydrochloride 10 MG O ral Tablet [Percocet] 12/22/2019 12:00:00 AM EST eCW1 ([facility]) Omeprazole 40 MG Delayed Release Oral Capsule 12/22/2019 12:00:00 A M EST eCW1 ([facility]) Sucralfate 1000 MG Oral Tablet 12/22/2019 12:00:00 AM EST eCW1 ([facility]) Acetaminophen 325 MG / Oxycodone Hydrochloride 10 MG O ral Tablet [Percocet] 12/22/2019 12:00:00 AM EST eCW1 ([facility]) Omeprazole 40 MG Delayed Release Oral Capsule 12/22/2019 12:00:00 A M EST eCW1 ([facility]) Sucralfate 1000 MG Oral Tablet 12/22/2019 12:00:00 AM EST eCW1 ([facility]) Acetaminophen 325 MG / Oxycodone Hydrochloride 10 MG O ral Tablet [Percocet] 12/22/2019 12:00:00 AM EST eCW1 ([facility]) Sucralfate 1000 MG Oral Tablet 12/22/2019 12:00:00 AM EST eCW1 ([facility]) Omeprazole 40 MG Delayed Release Oral Capsule 12/22/2019 12:00:00 A M EST eCW1 ([facility]) Acetaminophen 325 MG / Oxycodone Hydrochloride 10 MG O ral Tablet [Percocet] 12/22/2019 12:00:00 AM EST eCW1 ([facility]) Sucralfate 1000 MG Oral Tablet 12/22/2019 12:00:00 AM EST eCW1 ([facility]) Omeprazole 40 MG Delayed Release Oral Capsule 12/22/2019 12:00:00 A M EST eCW1 ([facility]) Acetaminophen 325 MG / Oxycodone Hydrochloride 10 MG O ral Tablet [Percocet] 12/22/2019 12:00:00 AM EST eCW1 ([facility]) Sucralfate 1000 MG Oral Tablet 12/22/2019 12:00:00 AM EST eCW1 ([facility]) Omeprazole 40 MG Delayed Release Oral Capsule 12/22/2019 12:00:00 A M EST eCW1 ([facility]) Acetaminophen 325 MG / Oxycodone Hydrochloride 10 MG O ral Tablet [Percocet] 12/22/2019 12:00:00 AM EST eCW1 ([facility]) Sucralfate 1000 MG Oral Tablet 12/22/2019 12:00:00 AM EST eCW1 ([facility]) Omeprazole 40 MG Delayed Release Oral Capsule 12/22/2019 12:00:00 A M EST eCW1 ([facility]) Omeprazole 40 MG Delayed Release Oral Capsule 12/22/2019 12:00:00 A M EST eCW1 ([facility]) Sucralfate 1000 MG Oral Tablet 12/22/2019 12:00:00 AM EST eCW1 ([facility]) Omeprazole 40 MG Delayed Release Oral Capsule 12/22/2019 12:00:00 A M EST eCW1 ([facility]) Sucralfate 1000 MG Oral Tablet 12/22/2019 12:00:00 AM EST eCW1 ([facility]) Omeprazole 40 MG Delayed Release Oral Capsule 12/22/2019 12:00:00 A M EST eCW1 ([facility]) Sucralfate 1000 MG Oral Tablet 12/22/2019 12:00:00 AM EST eCW1 ([facility]) Omeprazole 40 MG Delayed Release Oral Capsule 12/22/2019 12:00:00 A M EST eCW1 ([facility]) Sucralfate 1000 MG Oral Tablet 12/22/2019 12:00:00 AM EST eCW1 ([facility]) Omeprazole 40 MG Delayed Release Oral Capsule 12/22/2019 12:00:00 A M EST eCW1 ([facility]) Sucralfate 1000 MG Oral Tablet 12/22/2019 12:00:00 AM EST eCW1 ([facility]) Omeprazole 40 MG Delayed Release Oral Capsule 12/22/2019 12:00:00 A M EST eCW1 ([facility]) Sucralfate 1000 MG Oral Tablet 12/22/2019 12:00:00 AM EST eCW1 ([facility]) Omeprazole 40 MG Delayed Release Oral Capsule 12/22/2019 12:00:00 A M EST eCW1 ([facility]) Sucralfate 1000 MG Oral Tablet 12/22/2019 12:00:00 AM EST eCW1 ([facility]) Acetaminophen 325 MG / Oxycodone Hydrochloride 10 MG O ral Tablet [Percocet] 12/22/2019 12:00:00 AM EST eCW1 ([facility]) Omeprazole 40 MG Delayed Release Oral Capsule 12/22/2019 12:00:00 A M EST eCW1 ([facility]) Sucralfate 1000 MG Oral Tablet 12/22/2019 12:00:00 AM EST eCW1 ([facility]) Omeprazole 40 MG Delayed Release Oral Capsule 12/22/2019 12:00:00 A M EST eCW1 ([facility]) Sucralfate 1000 MG Oral Tablet 12/22/2019 12:00:00 AM EST eCW1 ([facility]) Omeprazole 40 MG Delayed Release Oral Capsule 12/22/2019 12:00:00 A M EST eCW1 ([facility]) Sucralfate 1000 MG Oral Tablet 12/22/2019 12:00:00 AM EST eCW1 ([facility]) Omeprazole 40 MG Delayed Release Oral Capsule 12/22/2019 12:00:00 A M EST eCW1 ([facility]) Sucralfate 1000 MG Oral Tablet 12/22/2019 12:00:00 AM EST eCW1 ([facility]) Acetaminophen 325 MG / Oxycodone Hydrochloride 10 MG O ral Tablet [Percocet] 11/24/2019 12:00:00 AM EDT eCW1 ([facility]) Diazepam 2 MG Oral Tablet 11/10/2019 12:00:00 AM EDT eCW1 ([facility]) Diazepam 2 MG Oral Tablet 11/10/2019 12:00:00 AM EDT eCW1 ([facility]) Diazepam 2 MG Oral Tablet 11/10/2019 12:00:00 AM EDT eCW1 ([facility]) Diazepam 2 MG Oral Tablet 11/10/2019 12:00:00 AM EDT eCW1 ([facility]) Diazepam 2 MG Oral Tablet 11/10/2019 12:00:00 AM EDT eCW1 ([facility]) Diazepam 2 MG Oral Tablet 11/10/2019 12:00:00 AM EDT eCW1 ([facility]) Diazepam 2 MG Oral Tablet 11/10/2019 12:00:00 AM EDT eCW1 ([facility]) Diazepam 2 MG Oral Tablet 11/10/2019 12:00:00 AM EDT eCW1 ([facility]) Diazepam 2 MG Oral Tablet 11/10/2019 12:00:00 AM EDT eCW1 ([facility]) Diazepam 2 MG Oral Tablet 11/10/2019 12:00:00 AM EDT eCW1 ([facility]) Diazepam 2 MG Oral Tablet 11/10/2019 12:00:00 AM EDT eCW1 ([facility]) Diazepam 2 MG Oral Tablet 11/10/2019 12:00:00 AM EDT eCW1 ([facility]) Diazepam 2 MG Oral Tablet 11/10/2019 12:00:00 AM EDT eCW1 ([facility]) Diazepam 2 MG Oral Tablet 11/10/2019 12:00:00 AM EDT eCW1 ([facility]) Diazepam 2 MG Oral Tablet 11/10/2019 12:00:00 AM EDT eCW1 ([facility]) Diazepam 2 MG Oral Tablet 11/10/2019 12:00:00 AM EDT eCW1 ([facility]) Diazepam 2 MG Oral Tablet 11/10/2019 12:00:00 AM EDT eCW1 ([facility]) Diazepam 2 MG Oral Tablet 11/10/2019 12:00:00 AM EDT eCW1 ([facility]) Diazepam 2 MG Oral Tablet 11/10/2019 12:00:00 AM EDT eCW1 ([facility]) Diazepam 2 MG Oral Tablet 11/10/2019 12:00:00 AM EDT eCW1 ([facility]) Diazepam 2 MG Oral Tablet 11/10/2019 12:00:00 AM EDT eCW1 ([facility]) Diazepam 2 MG Oral Tablet 11/10/2019 12:00:00 AM EDT eCW1 ([facility]) Diazepam 2 MG Oral Tablet 11/10/2019 12:00:00 AM EDT eCW1 ([facility]) Diazepam 2 MG Oral Tablet 11/10/2019 12:00:00 AM EDT eCW1 ([facility]) Diazepam 2 MG Oral Tablet 11/10/2019 12:00:00 AM EDT eCW1 ([facility]) Diazepam 2 MG Oral Tablet 11/10/2019 12:00:00 AM EDT eCW1 ([facility]) Diazepam 2 MG Oral Tablet 11/10/2019 12:00:00 AM EDT eCW1 ([facility]) Diazepam 2 MG Oral Tablet 11/10/2019 12:00:00 AM EDT eCW1 ([facility]) Diazepam 2 MG Oral Tablet 11/10/2019 12:00:00 AM EDT eCW1 ([facility]) Diazepam 2 MG Oral Tablet 11/10/2019 12:00:00 AM EDT eCW1 ([facility]) Diazepam 2 MG Oral Tablet 11/10/2019 12:00:00 AM EDT eCW1 ([facility]) Diazepam 2 MG Oral Tablet 11/10/2019 12:00:00 AM EDT eCW1 ([facility]) Diazepam 2 MG Oral Tablet 11/10/2019 12:00:00 AM EDT eCW1 ([facility]) Diazepam 2 MG Oral Tablet 11/10/2019 12:00:00 AM EDT eCW1 ([facility]) Diazepam 2 MG Oral Tablet 11/10/2019 12:00:00 AM EDT eCW1 ([facility]) Diazepam 2 MG Oral Tablet 11/10/2019 12:00:00 AM EDT eCW1 ([facility]) Diazepam 2 MG Oral Tablet 11/10/2019 12:00:00 AM EDT eCW1 ([facility]) Diazepam 2 MG Oral Tablet 11/10/2019 12:00:00 AM EDT eCW1 ([facility]) Diazepam 2 MG Oral Tablet 11/10/2019 12:00:00 AM EDT eCW1 ([facility]) Diazepam 2 MG Oral Tablet 11/10/2019 12:00:00 AM EDT eCW1 ([facility]) Diazepam 2 MG Oral Tablet 11/10/2019 12:00:00 AM EDT eCW1 ([facility]) Diazepam 2 MG Oral Tablet 11/10/2019 12:00:00 AM EDT eCW1 ([facility]) Diazepam 2 MG Oral Tablet 11/10/2019 12:00:00 AM EDT eCW1 ([facility]) Diazepam 2 MG Oral Tablet 11/10/2019 12:00:00 AM EDT eCW1 ([facility]) Diazepam 2 MG Oral Tablet 11/10/2019 12:00:00 AM EDT eCW1 ([facility]) Diazepam 2 MG Oral Tablet 11/10/2019 12:00:00 AM EDT eCW1 ([facility]) Diazepam 2 MG Oral Tablet 11/10/2019 12:00:00 AM EDT eCW1 ([facility]) Diazepam 2 MG Oral Tablet 11/10/2019 12:00:00 AM EDT eCW1 ([facility]) Diazepam 2 MG Oral Tablet 11/10/2019 12:00:00 AM EDT eCW1 ([facility]) 28 ACTUAT tiotropium 0.0025 MG/ACTUAT Metered Dose Inh aler [Spiriva] 09/04/2019 12:00:00 AM EDT eCW1 ([facility]) 28 ACTUAT tiotropium 0.0025 MG/ACTUAT Metered Dose Inh aler [Spiriva] 09/04/2019 12:00:00 AM EDT eCW1 ([facility]) 28 ACTUAT tiotropium 0.0025 MG/ACTUAT Metered Dose Inh aler [Spiriva] 09/04/2019 12:00:00 AM EDT eCW1 ([facility]) 28 ACTUAT tiotropium 0.0025 MG/ACTUAT Metered Dose Inh aler [Spiriva] 09/04/2019 12:00:00 AM EDT eCW1 ([facility]) 28 ACTUAT tiotropium 0.0025 MG/ACTUAT Metered Dose Inh aler [Spiriva] 09/04/2019 12:00:00 AM EDT eCW1 ([facility]) 28 ACTUAT tiotropium 0.0025 MG/ACTUAT Metered Dose Inh aler [Spiriva] 09/04/2019 12:00:00 AM EDT eCW1 ([facility]) 28 ACTUAT tiotropium 0.0025 MG/ACTUAT Metered Dose Inh aler [Spiriva] 09/04/2019 12:00:00 AM EDT eCW1 ([facility]) Morphine Sulfate 15 MG Extended Release Oral Tablet 09/03/19 12:00:00 AM EDT eCW1 ([facility]) 200 ACTUAT Albuterol 0.09 MG/ACTUAT Metered Dose Inhal er [Ventolin] 08/25/2019 12:00:00 AM EDT eCW1 ([facility]) tiotropium 0.018 MG/ACTUAT Inhalant Powder [Spiriva] 12:00:00 AM EDT eCW1 ([facility]) 200 ACTUAT Albuterol 0.09 MG/ACTUAT Metered Dose Inhal er [Ventolin] 08/25/2019 12:00:00 AM EDT eCW1 ([facility]) tiotropium 0.018 MG/ACTUAT Inhalant Powder [Spiriva] 12:00:00 AM EDT eCW1 ([facility]) 200 ACTUAT Albuterol 0.09 MG/ACTUAT Metered Dose Inhal er [Ventolin] 08/25/2019 12:00:00 AM EDT eCW1 ([facility]) tiotropium 0.018 MG/ACTUAT Inhalant Powder [Spiriva] 12:00:00 AM EDT eCW1 ([facility]) 200 ACTUAT Albuterol 0.09 MG/ACTUAT Metered Dose Inhal er [Ventolin] 08/25/2019 12:00:00 AM EDT eCW1 ([facility]) tiotropium 0.018 MG/ACTUAT Inhalant Powder [Spiriva] 12:00:00 AM EDT eCW1 ([facility]) 200 ACTUAT Albuterol 0.09 MG/ACTUAT Metered Dose Inhal er [Ventolin] 08/25/2019 12:00:00 AM EDT eCW1 ([facility]) tiotropium 0.018 MG/ACTUAT Inhalant Powder [Spiriva] 020 12:00:00 AM EDT eCW1 ([facility]) Chlorthalidone 25 MG Oral Tablet 08/04/2019 12:00:00 AM EDT eCW1 ([facility]) Propranolol Hydrochloride 10 MG Oral Tablet 08/04/2019 12:00:00 AM EDT eCW1 ([facility]) Morphine Sulfate 15 MG Extended Release Oral Tablet 07/28/19 12:00:00 AM EDT eCW1 ([facility]) Morphine Sulfate 15 MG Extended Release Oral Tablet 07/28/19 12:00:00 AM EDT eCW1 ([facility]) Acetaminophen 325 MG / Oxycodone Hydrochloride 10 MG O ral Tablet [Percocet] 07/13/2019 12:00:00 AM EDT eCW1 ([facility]) Morphine Sulfate 15 MG Extended Release Oral Tablet 07/07/19 12:00:00 AM EDT eCW1 ([facility]) Acetaminophen 325 MG / Oxycodone Hydrochloride 10 MG O ral Tablet [Percocet] 06/17/2019 12:00:00 AM EDT eCW1 ([facility]) Morphine Sulfate 15 MG Extended Release Oral Tablet 06/03/19 12:00:00 AM EDT eCW1 ([facility]) Acetaminophen 325 MG / Oxycodone Hydrochloride 10 MG O ral Tablet [Percocet] 05/18/2019 12:00:00 AM EDT eCW1 ([facility]) Morphine Sulfate 15 MG Extended Release Oral Tablet 05/04/19 12:00:00 AM EDT eCW1 ([facility]) Morphine Sulfate 15 MG Extended Release Oral Tablet 04/08/19 12:00:00 AM EST eCW1 ([facility]) Diazepam 5 MG Oral Tablet 04/01/2019 12:00:00 AM [facility] atorvastatin 40 MG Oral Tablet 03/26/2019 12:00:00 AM EST eCW1 ([facility]) atorvastatin 40 MG Oral Tablet 03/26/2019 12:00:00 AM EST eCW1 ([facility]) atorvastatin 40 MG Oral Tablet 03/26/2019 12:00:00 AM EST eCW1 ([facility]) Nystatin [id number] UNT/ML Topical Cream 03/26/2019 12:00:00 AM EST eCW1 ([facility]) Nystatin [id number] UNT/ML Topical Cream 03/26/2019 12:00:00 AM EST eCW1 ([facility]) Nystatin [id number] UNT/ML Topical Cream 03/26/2019 12:00:00 AM EST eCW1 ([facility]) atorvastatin 40 MG Oral Tablet 03/26/2019 12:00:00 AM EST eCW1 ([facility]) Losartan Potassium 50 MG Oral Tablet 03/26/2019 12:00:00 AM [facility] Ergocalciferol 04271 UNT Oral Capsule 03/26/2019 12:00:00 AM [facility] atorvastatin 40 MG Oral Tablet 03/26/2019 12:00:00 AM [facility] Nystatin [id number] UNT/ML Topical Cream 03/26/2019 12:00:00 AM EST eCW1 ([facility]) atorvastatin 40 MG Oral Tablet 03/26/2019 12:00:00 AM EST eCW1 ([facility]) Acetaminophen 325 MG / Oxycodone Hydrochloride 10 MG O ral Tablet [Percocet] 03/25/2019 12:00:00 AM EST eCW1 ([facility]) Morphine Sulfate 15 MG Extended Release Oral Tablet 03/10/19 12:00:00 AM EST eCW1 ([facility]) Diazepam 5 MG Oral Tablet 03/05/2019 12:00:00 AM [facility] Acetaminophen 325 MG / Oxycodone Hydrochloride 10 MG O ral Tablet [Percocet] 02/17/2019 12:00:00 AM EST eCW1 ([facility]) Morphine Sulfate 15 MG Extended Release Oral Tablet 02/12/19 12:00:00 AM EST eCW1 ([facility]) Acetaminophen 325 MG / Oxycodone Hydrochloride 10 MG O ral Tablet [Percocet] 01/19/2019 12:00:00 AM EST eCW1 ([facility]) Morphine Sulfate 15 MG Extended Release Oral Tablet 01/16/20 12:00:00 AM EST eCW1 ([facility]) Morphine Sulfate 15 MG Extended Release Oral Tablet 01/16/20 12:00:00 AM EST eCW1 ([facility]) duloxetine 30 MG Delayed Release Oral Capsule 12/30/2018 12:00:00 A M [facility] Losartan Potassium 25 MG Oral Tablet 05/14/2018 12:00:00 AM [facility] Propranolol Hydrochloride 20 MG Oral Tablet 01/13/2018 12:00:00 AM [facility] Oxycodone Hydrochloride 5 MG Oral Tablet 06/25/2017 12:00:00 AM [facility]
[2020-03-02] MEDS: diazePAM 2 MG TAB PO SCH (21:17)
[2020-03-02] MEDS: AMITRIPTYLINE 50 MG TAB PO SCH (21:18)
[2020-03-02] MEDS: OLANZapine 2.5MG TABLET PO SCH (21:18)
[2020-03-02] MEDS: AMITRIPTYLINE 25MG TABLET PO SCH (21:18)
[2020-03-02] MEDS: PROPRANOLOL 20 MG TAB PO SCH (21:20)
[2020-03-02] MEDS: PRIMIDONE 125MG PER 1/2 TABLET PO SCH (21:20)
[2020-03-03] MEDS: oxyCODONE 5MG TAB PO PRN ×2 (01:31→08:25)
[2020-03-03 06:00] VITALS: BP 136/85
[2020-03-03] MEDS: SUCRALFATE SUSP 1GM/10ML UD PO SCH ×3 (08:18→17:31)
[2020-03-03] MEDS: TIOTROPIUM INHALER/CAPSULE (SPIRIVA) INH SCH (08:19)
[2020-03-03] MEDS: diazePAM 2 MG TAB PO SCH ×2 (08:21→19:51)
[2020-03-03] MEDS: ASPIRIN 81 MG ENTERIC TAB PO SCH (08:22)
[2020-03-03] MEDS: OMEPRAZOLE 20 MG CAP PO SCH (08:22)
[2020-03-03] MEDS: PRIMIDONE 125MG PER 1/2 TABLET PO SCH ×2 (08:22→19:51)
[2020-03-03] MEDS: VALSARTAN 80 MG TAB (DIOVAN) PO SCH (08:23)
[2020-03-03] MEDS: PROPRANOLOL 20 MG TAB PO SCH ×3 (08:24→20:00)
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
[2020-03-03 18:00] VITALS: BP 118/74
[2020-03-03] MEDS: busPIRone 5 MG TAB PO SCH (19:50)
[2020-03-03] MEDS: AMITRIPTYLINE 25MG TABLET PO SCH (19:50)
[2020-03-03] MEDS: OLANZapine 2.5MG TABLET PO SCH (19:51)
[2020-03-03] MEDS: ATORVASTATIN 20 MG TAB PO SCH (19:51)
[2020-03-03] MEDS: AMITRIPTYLINE 50 MG TAB PO SCH (19:51)
[2020-03-03 20:10] VITALS: BP 160/108
[2020-03-03 21:12] LABS: CK-MB VALUE MASS < 1.0 NG/ML (<3.6); CPK CREATINE PHOSPHOKINASE 89 U/L (39-308); MB/CK RELATIVE INDEX 1.12 (< OR =4); TROPONIN I < 0.02 NG/ML (< 0.10)
--- NOTE | 2020-03-03 21:26 | IPNPDOC ---
Text Note Date of Service The patient was seen on 03/03/20. NOTE Rapid assessment note Time of service 8:20 PM Rapid response was called because the patient reported that he thinks he is having a heart attack. At the time of my evaluation, the patient reported having burning 9 out of 10 left-sided chest pain that radiated to his left arm. He also reported feeling short of breath & feeling cold. PE: T 98.2 / HR 72 / RR 28 / BP 160/108 / O2 99% GEN: appears anxious HEENT: NCAT/ MMM&P CVS: left sided chest pain reproducible with palpation of the chest / RRR/NMRG/ radial pulses equal bilaterally LUNGS: CTAB on RA ABD: soft & flat MSK: able to sit up on his own without assistance / when asked to lift his arms so that I can assess his strength he is not able to resist gravity but at other moments he is able to move his arms to remove his tensor band aid at the right wrist and is able to adjust the blood pressure cuff at the left arm / when asked to lift his legs so that I can assess his strength he says he is to weak to lift his legs EKG showed normal sinus rhythm without acute ST or T-wave changes. is a 55 yr old w a hx of hypertension, depression, anxiety, and chronic back pain who was admitted to [facility] for management of an unspecified psychotic disorder along with generalized anxiety; I was asked to evaluate the patient because he thought he might be having a heart attack. # Chest pain Possibly pleuritic vs 2/2 acid reflux Unlikely due to aortic dissection because there is no pulse to pulse deficit Plan: f/u trop, BNP / trail of tums #Anxiety Plan: management per [facility] Attending Sara NAZARIO I+O Sara NAZARIO I+O Vital Signs Date Time Temp Pulse Resp B/P (MAP) Pulse Ox O2 Delivery O2 Flow Rate FiO2 03/03/20 20:10 98.2 72 28 160/108 (125) 99 Room Air ANYI KELLY MD Mar 03, 2020 21:26
[2020-03-03 21:46] LABS: BASO % 0.5 % (0.0-1.0); EOS # 0.1 10^3/uL (0.0-0.5); EOS % 1.9 % (0.0-3.0); HEMATOCRIT 34.6 % (42.0-52.0); HEMOGLOBIN 11.9 g/dl (13.5-17.5); LYMPH # 1.6 10^3/uL (1.5-5.0); LYMPH % 36.5 % (24.0-44.0); MEAN CORPUSCULAR HEMOGLOBIN 32.3 pg (27.0-33.0); MEAN CORPUSCULAR HGB CONC 34.4 g/dl (32.0-36.5); MONO # 0.4 10^3/uL (0.0-0.8); MONO % 8.2 % (0.0-5.0); NEUTROPHILS # 2.3 10^3/uL (1.5-8.5); NEUTROPHILS % 52.7 % (36.0-66.0); PLATELET COUNT, AUTOMATED 192 10^3/uL (150-450); RED BLOOD COUNT 3.68 10^6/uL (4.30-6.10); WHITE BLOOD COUNT 4.3 10^3/uL (4.0-10.0)
[2020-03-03 21:58] LABS: ALBUMIN 3.3 GM/DL (3.2-5.2); ALT/SGPT 14 U/L (12-78); BILIRUBIN,TOTAL 0.3 MG/DL (0.2-1.0); BLOOD UREA NITROGEN 10 MG/DL (7-18); CALCIUM LEVEL 8.5 MG/DL (8.5-10.1); CARBON DIOXIDE LEVEL 29 MEQ/L (21-32); CHLORIDE LEVEL 106 MEQ/L (98-107); GLOMERULAR FILTRATION RATE > 60.0 (>56); GLUCOSE, FASTING 112 MG/DL (70-100); NT-PRO BNP 305 PG/ML (<125); POTASSIUM SERUM 3.4 MEQ/L (3.5-5.1); SODIUM LEVEL 140 MEQ/L (136-145); TOTAL PROTEIN 6.2 GM/DL (6.4-8.2)
[2020-03-04 06:00] VITALS: BP 136/82
[2020-03-04] MEDS ORDERED: POTASSIUM CHLORIDE 10 MEQ SR TABLET PO ONE (06:45)
[2020-03-04] MEDS: CALCIUM CARBONATE 500 MG CHEW U/D PO SCH ×3 (07:49→17:50)
[2020-03-04] MEDS: SUCRALFATE SUSP 1GM/10ML UD PO SCH ×3 (07:49→17:07)
[2020-03-04] MEDS: TIOTROPIUM INHALER/CAPSULE (SPIRIVA) INH SCH (07:50)
[2020-03-04] MEDS: PILL CUTTER 1 EACH XX PRN (08:29)
[2020-03-04] MEDS: diazePAM 2 MG TAB PO SCH ×2 (08:31→21:14)
[2020-03-04] MEDS: ASPIRIN 81 MG ENTERIC TAB PO SCH (08:32)
[2020-03-04] MEDS: OMEPRAZOLE 20 MG CAP PO SCH (08:32)
[2020-03-04] MEDS: busPIRone 5 MG TAB PO SCH ×2 (08:32→21:13)
[2020-03-04] MEDS: PRIMIDONE 125MG PER 1/2 TABLET PO SCH ×2 (08:32→21:12)
[2020-03-04] MEDS: VALSARTAN 80 MG TAB (DIOVAN) PO SCH (08:32)
[2020-03-04] MEDS: PROPRANOLOL 20 MG TAB PO SCH ×3 (08:33→21:12)
--- NOTE | 2020-03-04 11:28 | MHIPNPDOC ---
[facility] Progress Note Progress Note DATE OF SERVICE: 03/04/20 HISTORY: HISTORY OF THE PRESENT ILLNESS: Per the medical floor reports: Jean-Paul is a 55 year old male with a history of depression, generalized anxiety, chronic low back pain who presents to the ED after having been brought in by his with complaint of shortness of breath. The patient reports that he recently fell on black ice landing on his chest and today he experienced sudden shortness of breath related to that injury. Upon my entry into the room, the patient reports that all of his symptoms have completely resolved. He is no longer short of breath and is feeling well. Per ED M.D., who called the patient's , the patient has been having hallucinations and has been belligerent for the past several weeks. The patient has a history of generalized anxiety disorder and depression for which he recently started seeing a psychiatrist, Dr. Devine, at [facility]. The patient tells me that he has not had any issues with confusion, denies any hallucinations or mood changes, and feels as though his therapy is working. He does note that he has been unable to sleep and recently his primary care physician prescribed him gabapentin and amitriptyline. Looking back at his PCP notes he has been on both of these medications for some time now." Psychiatry was consulted and became concerned that he may be experiencing drug interactions secondary to polypharmacy and transferred him to [facility] for further evaluation and treatment Patient is a 55 -year-old , male, who reports he came in to the emergency room with his for shortness of breath and low blood pressure but after he got here, his blood pressure was normal. He states the ED sent him to the medical floor for observation. He denies having any hallucinations, confusion, or mood changes before admission, just mentioned that he had one episode of hearing "white noise" that has subsided. He reports he is unsure why he was transferred to [facility], but states that he has been having "a few problems with my health so I can understand that." He denies having depression or si but reports history of generalized anxiety disorder VITAL SIGNS: See below. CURRENT MEDICATIONS: See below. MENTAL STATUS EXAMINATION: Patient is a 55 year old male who was laying in bed when approached but is agreeable to meet for the interview. He is pleasant, calm cooperative, easy to engage in session. Jean-Paul is alert and oriented x3, able to engage in reality based conversation with this creative writer. He denies ah/vh, does not appear to be internally preoccupied General Appearance: well groomed, ds/not appear stated age (older ), hospital scubs/clothing Build: average Demeanor: average Eye Contact: average Behavior: cooperative Speech: clear, spontaneous, normal volume, reg/rate,rhythm,volume Mood: euthymic Mood "good" Affect: full, appropriate Thought Process: logical/linear Thought Content (Delusions): denies SI, HI, AVH Thought Content (Other): none reported, appropriate, coherent Thought Content (Aggressive): none reported Perception (Hallucinations): auditory (reports +AH before admissions of "white noise" but currently denies ) Perception (Other): none reported Cognition (Impairment of): none reported Cognition(Intelligence Est.): average Oriented: Awake, Alert, Oriented times three Insight: fair Judgment: fair Psychosis: Denies Diagnoses unspecified psychotic disorder generalized anxiety disorder nicotine use disorder ASSESSMENT: In today's session, Jean-Paul is calm and cooperative. He denies feeling anxious at this time. Per staff, Jean-Paul was having chest pain last night and that medicine came and saw him and ruled out any cardiac abnormalities. Jean-Paul reports "it must have" been anxiety. He reports he has spoken to his , who is supportive, and that "she is just waiting for me to get home." It was discussed with him the treatment team's concerns regarding his outpatient medication regimen and the is agreeable to medication changes. In addition, pain management was also consulted, who made recommendations to his pain medications. was contacted for collateral, who states that 5-6 months prior to admission, Jean-Paul was having difficulties breathing. She reported that in the last two weeks or so, he began hallucinating. She reported that he thought there were times where he was not getting enough oxygen, and that other times he felt he was getting too much oxygen The reported that at one time he felt he was blowing up due to too much oxygen and wanted to get a knife to stab himself. In addition, she reported that another time he thought his lips and b ack were full of bubbles and that he once put wrapping tape over his mouth. She states that she could hear him whispering at night to someone that wasn't there and that the hallucinations kept worsening and he eventually became aggressive. During the last 1-2 weeks, Chichi (his ) reported that he wasn't eating and wasn't sleeping, maybe a half hour to one hour per night. She reported this b efore the hallucinations, he did have changes to his blood pressure medications, as well as his psychiatric medications but she is unsure if this was the cause of the hallucinations. She states that she does control and dispense his medications and that he takes all of his medications as prescribed, despite his claims that he doesn't take his blood pressure medications regularly. She is aware of pain management consult at this time as well as concerns regarding his current home medication regimen MANAGEMENT PLAN: Continue all medications Change pain medications per pain management recommendations TIME SPENT: 25 minutes. Vital Signs Vital Signs Date Time Temp Pulse Resp B/P (MAP) Pulse Ox O2 Delivery O2 Flow Rate FiO2 03/04/20 08:33 110 03/04/20 08:32 136/100 03/04/20 06:00 98.6 18 99 Room Air Laboratory Data 24H Labs Laboratory Tests 2 03/03/20 20:17: Bedside Glucose (Misc Panel) 109H 03/03/20 20:29: Immature Granulocyte % (Auto) 0.2, Neutrophils (%) (Auto) 52.7, Lymphocytes (%) (Auto) 36.5, Monocytes (%) (Auto) 8.2H, Eosinophils (%) (Auto) 1.9, Basophils (%) (Auto) 0.5, Neutrophils # (Auto) 2.3, Lymphocytes # (Auto) 1.6, Monocytes # (Auto) 0.4, Eosinophils # (Auto) 0.1, Basophils # (Auto) 0.0, Nucleated Red Blood Cells % (auto) 0.0, Anion Gap 5L, Glomerular Filtration Rate > 60.0, Calcium Level 8.5, Total Bilirubin 0.3, Aspartate Amino Transf (AST/SGOT) 7, Alanine Aminotransferase (ALT/SGPT) 14, Alkaline Phosphatase 90, Total Creatine Kinase 89, Creatine Kinase MB < 1.0, Creatine Kinase MB Relative Index 1.12, Troponin I < 0.02, IX-Jmi-[id number]-Type Natriuretic Peptide 305H, Total Protein 6.2L, Albumin 3.3, Albumin/Globulin Ratio 1.1 CBC/BMP Laboratory Tests 03/03/20 20:29 Current Medications Current Medications Medications (Trade) Dose Ordered Sig/Shanell Route PRN Reason Start Time Stop Time Status Last Admin Dose Admin Acetaminophen (Tylenol Tab) 650 mg Q6HP PRN PO HEADACHE or DISCOMFORT 03/02/20 17:00 03/02/20 21:19 Al Hydrox/Mg Hydrox/Simethicone (Mylanta) 30 ml Q4HP PRN PO HEARTBURN/INDIGESTION 03/02/20 17:00 Amitriptyline HCl (Elavil) 25 mg QHS PO 03/02/20 21:00 03/03/20 19:50 Amitriptyline HCl (Elavil) 100 mg QHS PO 03/02/20 21:00 03/03/20 19:51 Aspirin (Ecotrin) 81 mg DAILY PO 03/03/20 09:00 03/04/20 08:32 Atorvastatin Calcium (Lipitor) 40 mg QHS PO 03/03/20 21:00 03/03/20 19:51 Buspirone HCl (Buspar) 5 mg BID PO 03/03/20 21:00 03/04/20 08:32 Calcium Carbonate (Tums) 1,000 mg WM PO 03/04/20 08:00 03/04/20 07:49 Diazepam (Valium) 0.5 mg BID PO 03/03/20 21:00 03/06/20 22:00 03/04/20 08:31 Diazepam (Valium) 1 mg BID PO 03/02/20 21:00 03/03/20 15:34 DC 03/03/20 08:21 Haloperidol (Haldol) 2 mg Q6HP PRN PO AGITATION 03/02/20 17:00 Magnesium Hydroxide (Milk Of Magnesia) 30 ml DAILYPRN PRN PO CONSTIPATION 03/02/20 17:00 Olanzapine (ZyPREXA) 7.5 mg QHS PO 03/02/20 21:00 03/03/20 19:51 Omeprazole (PriLOSEC) 40 mg DAILY PO 03/03/20 09:00 03/04/20 08:32 Oxycodone HCl (Roxicodone, Oxyir) 5 mg Q6HP PRN PO PAIN 03/02/20 17:00 03/03/20 08:25 Primidone (Mysoline) 125 mg BID PO 03/02/20 21:00 03/04/20 08:32 Propranolol HCl (Inderal) 20 mg TID PO 03/02/20 21:00 03/04/20 08:33 Sucralfate (Carafate Suspension) 1 gm AC PO 03/02/20 17:30 03/04/20 07:49 Tiotropium [place] (Spiriva Handihaler) 1 inhalation DAILY@08 INH 03/03/20 08:00 03/04/20 07:50 Trazodone HCl (Desyrel) 50 mg QHSP PRN PO INSOMNIA 03/02/20 17:00 Valsartan (Diovan) 320 mg DAILY PO 03/03/20 09:00 03/04/20 08:32 Allergies Coded Allergies: Penicillins (Verified Allergy, Intermediate, HIVES, 02/29/20) albuterol (Verified Adverse Reaction, Mild, HYPER/SHAKY, 02/29/20) ANTONY ZALDIVAR NP Mar 04, 2020 11:05
[2020-03-04] MEDS: MORPHINE 15 MG SA TAB PO SCH ×2 (12:49→21:15)
[2020-03-04 16:11] VITALS: BP 120/77
[2020-03-04] MEDS: NICOTINE 21MG/24HR 1 EA TRANSDERMAL TD SCH (16:19)
--- NOTE | 2020-03-04 17:18 | HPEPDOC ---
General Date of Admission Mar 02, 2020 at 18:29 Date of Service: Mar 04, 2020 Chief Complaint The patient is a 55-year-old male admitted with a reason for visit of Unknown. Source: Patient Exam Limitations: No limitations Timing/Duration: Week(s) Severity: Mild History of Present Illness This is a 55-year-old male with history of anxiety, depression who presents with shortness of breath and reported history of recent hallucinations, insomnia, belligerence and confusion. Pt after initial stabilization patient was transferred to mental health unit. Patient denied fever, chills, nausea, vomiting, palpitations, diarrhea or dysuria Home Medications Scheduled Amitriptyline HCl (Amitriptyline HCl) 25 Mg Tablet, 125 MG PO QHS, (Reported) Aspirin (Aspirin EC) 81 Mg Tablet.dr, 81 MG PO DAILY, (Reported) Atorvastatin Calcium (Atorvastatin Calcium) 40 Mg Tablet, 40 MG PO DAILY, (Reported) Diazepam (Diazepam) 2 Mg Tablet, 2 MG PO BID, (Reported) Diazepam (Diazepam) 2 Mg Tablet, 1 MG PO DAILY, (Reported) TAKES AT NOON Duloxetine Hcl (Cymbalta) 30 Mg Capsule.dr, 30 MG PO DAILY, (Reported) Ipratropium/Albuterol Sulfate (Combivent Respimat 20-100 Mcg) 4 Gm Mist.inhal, 1 PUFF INH DAILY, (Reported) Morphine Sulfate (Morphine Sulfate ER) 15 Mg Tablet.er, 15 MG PO Q8H, (Reported) Omeprazole (Omeprazole) 40 Mg Capsule.dr, 40 MG PO DAILY, (Reported) Primidone (Primidone) 250 Mg Tablet, 125 MG PO BID, (Reported) Propranolol HCl (Propranolol HCl) 20 Mg Tablet, 20 MG PO TID, (Reported) Sucralfate (Sucralfate) 1 Gm Tablet, 1 GM PO AC, (Reported) Tiotropium [place] (Spiriva Respimat) 4 Gm Mist.inhal, 2 PUFFS INH DAILY, (Reported) Valsartan (Valsartan) 320 Mg Tablet, 320 MG PO DAILY, (Reported) Scheduled PRN Oxycodone HCl/Acetaminophen (Oxycodone-Acetaminophen 10-325) 1 Each Tablet, 1 TAB PO Q6HP PRN for PAIN, (Reported) Allergies Coded Allergies: Penicillins (Verified Allergy, Intermediate, HIVES, 02/29/20) albuterol (Verified Adverse Reaction, Mild, HYPER/SHAKY, 02/29/20) Past Medical History Medical History Chronic low back pain - DDD Right arm pain - biceps tendon rupture - [facility] - s/p surgical repair 2013 with residual numbness and pain - Macrocytic anemia Pulmonary nodules - Chest CT 09/25/13 - mild COPD, old granulomatous disease with calcified 11mm nodule in LLL, calcified left hilar nodes. 3mm noncalcified pulmonary nodule just adjacent to and continuos with other pulmonary nodule. Recommend f/u CT chest 09/25. - F/U CT done 08/03/15 - chronic changes, stable 3 mm nodule c/w 09/25/13 - no further imaging needed Vitamin D deficiency Right torn rotator cuff/ torn left rotator cuff depression Hypertension BL hand tremor - Per imaging at [facility]-spine x-rays showed severe degenerative changes, MRI showed mild Degenerative changes. F/U MRI pending per Neurosurgery (comp case) - Neuology Dr. 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 (Dr. Devine) 08/2019 - Echo - NormalLV size and systolic function, Normal diastolic function, Elevated pul central pressure Surgical History Bicep-Rt side 2015 rotator cuff tear repair-left 02/2017 Colonoscopy 2016 Right rotator cuff repair- RIGHT 06/2018 Family History both parents from cancer son - type I diabetes Social History * Smoker: current smoker Alcohol: Denies Drugs: denies A-FIB/CHADSVASC A-FIB History Current/History of A-Fib/PAF?: No Current PO Anticoag Therapy: No Review of Systems Constitutional: Denies: Chills Eyes: Denies: Pain ENT: Denies: Head Aches Skin: Denies: Rash, Lesions Pulmonary: Denies: Dyspnea Cardiovascular: Denies: Chest Pain, Palpitations Gastrointestinal: Denies: Nausea Genitourinary: Denies: Dysuria, Frequency Hematologic: Denies: Bruising Endocrine: Denies: Polydipsia Musculoskeletal: Denies: Neck Pain Neurological: Denies: Weakness Psych: Reports: Anxiety Physical Examination General Exam: Positive: Alert, Cooperative Eye Exam: Positive: PERRLA ENT Exam: Positive: Atraumatic Neck Exam: Positive: Supple; Negative: JVD Chest Exam: Positive: Clear to auscultation Heart Exam: Positive: Rate Normal Telemetry: Positive: No significant arrhythmia Abdomen Exam: Positive: Normal bowel sounds Extremity Exam: Negative: Clubbing Skin Exam: Positive: Nl turgor and temperature Neuro Exam: Positive: Strength at 5/5 X4 ext Psych Exam: Positive: Anxiety Vital Signs Vital Signs Date Time Temp Pulse Resp B/P (MAP) Pulse Ox O2 Delivery O2 Flow Rate FiO2 03/04/20 16:11 98.5 83 16 120/77 (91) 98 Room Air Laboratory Data Labs 24H Laboratory Tests 2 03/03/20 20:17: Bedside Glucose (Misc Panel) 109H 03/03/20 20:29: Immature Granulocyte % (Auto) 0.2, Neutrophils (%) (Auto) 52.7, Lymphocytes (%) (Auto) 36.5, Monocytes (%) (Auto) 8.2H, Eosinophils (%) (Auto) 1.9, Basophils (%) (Auto) 0.5, Neutrophils # (Auto) 2.3, Lymphocytes # (Auto) 1.6, Monocytes # (Auto) 0.4, Eosinophils # (Auto) 0.1, Basophils # (Auto) 0.0, Nucleated Red Blood Cells % (auto) 0.0, Anion Gap 5L, Glomerular Filtration Rate > 60.0, Calcium Level 8.5, Total Bilirubin 0.3, Aspartate Amino Transf (AST/SGOT) 7, Alanine Aminotransferase (ALT/SGPT) 14, Alkaline Phosphatase 90, Total Creatine Kinase 89, Creatine Kinase MB < 1.0, Creatine Kinase MB Relative Index 1.12, Troponin I < 0.02, [id number]-Type Natriuretic Peptide 305H, Total Protein 6.2L, Albumin 3.3, Albumin/Globulin Ratio 1.1 CBC/BMP Laboratory Tests 03/03/20 20:29 Assessment/Plan This is a 55-year-old male with history of anxiety, depression who presents with shortness of breath and reported history of recent hallucinations, insomnia, bel ligerence and confusion. Pt after initial stabilization patient was transferred to mental health unit. Patient denied fever, chills, nausea, vomiting, palpitations, diarrhea or dysuria Problems (1) COPD (chronic obstructive pulmonary disease) Status: Chronic Problem Text: Continue inhalers Not in acute exacerbation (2) Anxiety Status: Acute Problem Text: defer treatment psych team (3) Hypertension Status: Chronic Problem Text: Blood pressures under control Continue home meds (4) Hyperlipidemia Status: Chronic Problem Text: Continue statin (5) Chronic back pain Status: Chronic Problem Text: Pain management Plan / VTE VTE Prophylaxis Ordered?: No VTE Exclusion Mechanical Proph: Low Risk for VTE CHAMP OLVERA DO Mar 04, 2020 17:18
[2020-03-04] MEDS: AMITRIPTYLINE 50 MG TAB PO SCH (21:12)
[2020-03-04] MEDS: AMITRIPTYLINE 25MG TABLET PO SCH (21:13)
[2020-03-04] MEDS: OLANZapine 2.5MG TABLET PO SCH (21:13)
[2020-03-04] MEDS: ATORVASTATIN 20 MG TAB PO SCH (21:13)
[2020-03-05 06:37] VITALS: BP 114/72
[2020-03-05] MEDS: TIOTROPIUM INHALER/CAPSULE (SPIRIVA) INH SCH (07:31)
[2020-03-05] MEDS: SUCRALFATE SUSP 1GM/10ML UD PO SCH ×3 (07:31→16:40)
[2020-03-05] MEDS: CALCIUM CARBONATE 500 MG CHEW U/D PO SCH ×3 (08:32→17:38)
[2020-03-05] MEDS: diazePAM 2 MG TAB PO SCH ×2 (09:21→19:52)
[2020-03-05] MEDS: ASPIRIN 81 MG ENTERIC TAB PO SCH (09:21)
[2020-03-05] MEDS: VALSARTAN 80 MG TAB (DIOVAN) PO SCH (09:22)
[2020-03-05] MEDS: MORPHINE 15 MG SA TAB PO SCH ×2 (09:23→19:49)
[2020-03-05] MEDS: PROPRANOLOL 20 MG TAB PO SCH ×3 (09:24→19:50)
[2020-03-05] MEDS: NICOTINE 21MG/24HR 1 EA TRANSDERMAL TD SCH (09:24)
[2020-03-05] MEDS: busPIRone 5 MG TAB PO SCH ×2 (09:24→19:49)
[2020-03-05] MEDS: PRIMIDONE 125MG PER 1/2 TABLET PO SCH ×2 (09:24→19:49)
[2020-03-05] MEDS: OMEPRAZOLE 20 MG CAP PO SCH (09:24)
[2020-03-05] MEDS ORDERED: ALBUTEROL 90 MCG/ACT 8GM HFA INHALER INH PRN (12:45)
[2020-03-05] MEDS ORDERED: ASPIRIN 81 MG CHEW TABLET PO STA (13:08)
[2020-03-05] MEDS: NITROGLYCERIN 0.4 MG SUBL TABLET SL PRN ×2 (13:15→13:34)
--- NOTE | 2020-03-05 14:08 | ECGEPIP ---
[facility] Test Date: 2020-03-05 Pat Name: TAMARA MONROY Department: Room: [place] [address] Gender: Male Cardiopulmonary Specialist: LITO : 1965 Requested By: ANYI KELLY Order Number: [id number] Reading MD: Henrietta Marroquin Measurements Intervals [place] Rate: 58 P: 62 ID: [id number] QRS: 32 QRSD: 86 T: 60 QT: 380 QTc: 375 Interpretive Statements SINUS BRADYCARDIA LOW VOLTAGE LOMB LEAD RATE SLOWER C/W 03/03/20 Electronically Signed on 03-05-2020 14:08:09 EST by Henrietta Marroquin
[2020-03-05] MEDS: oxyCODONE 5MG TAB PO PRN (14:42)
[2020-03-05 16:30] VITALS: BP 117/75
[2020-03-05] MEDS: AMITRIPTYLINE 25MG TABLET PO SCH (19:49)
[2020-03-05] MEDS: AMITRIPTYLINE 50 MG TAB PO SCH (19:50)
[2020-03-05] MEDS: OLANZapine 2.5MG TABLET PO SCH (19:50)
[2020-03-05] MEDS: ATORVASTATIN 20 MG TAB PO SCH (19:52)
--- NOTE | 2020-03-05 20:11 | MHIPNPDOC ---
[facility] Progress Note Progress Note Subjective: Jean-Paul is a 55 year old male with a history of STEFANO and chronic lower back pain who was brought into the [facility] ED by his for shortness of breath, but then later, admitted to the [facility] for what appeared to him displaying a myriad of psychotic symptoms. (Namely perceptual disturbances and mood changes/confusion) Jean-Paul seemed to be doing fairly well, today, while on the unit, as he was seen interacting with peers and staff, participating in activities on the unit. Upon assessment, he appeared somewhat overly anxious but did not appear to be responding to internal stimuli. States that due to his severe Osteoarthritis and back pain, he has been increasing the amount of opiate prescribed medication that has been prescribed to him. I take it about every 6 hours, but usually every other day, not daily. Notes impairment in sleep and a constant sensation of not being able to take in enough oxygen. Im feeling better but I still am wondering if I had some kind of reaction or something. Objective: He was seen and evaluated, alert and oriented times three, cognition fair, fair hygiene, thin body habitus, appears older than stated age, good eye contact; Speech is somewhat increased in production, fast in rate and normal in volume. Mood: its fine, its fine, affect: anxious but pleasant/affable; TP are circumstantial and perseverative; TC is anxious and obsessive in tone but no césar delusional themes; he denies any current passive or active suicidal or homicidal ideation, intent or plan. Denies AH/VH/TH; insight, impulse control and judgment are fair/poor Diagnosis: Unspecified psychotic disorder STEFANO A/P: Jean-Paul is a 55 year old male with a history of STEFANO and chronic lower back pain who was brought into the [facility] ED by his for shortness of breath, but then later, admitted to the [facility] for what appeared to him displaying a myriad of psychotic symptoms. (Namely perceptual disturbances and mood changes/confusion). 1) Symptoms may be the result of polypharmacy with multiple anti-cholinergic agents which can worsen mental status and cause confusion. Elavil is anti- cholinergic and especially when mixed with benzodiazepines (Hes prescribed Valium) and Oxycodone/opiates, a worsening of mental status changes are very likely to occur, especially in the Geriatric population. 2) Continue to collaborate with treatment team and Hospitalist. 3) Q 15 min checks 1) Collaborate with discharge planners for the safest, most optimal, discharge, upon his clinical stabilization. 2) Continue to encourage participation with group programming and activities on the unit. Total time spent: 30 minutes Vital Signs Vital Signs Date Time Temp Pulse Resp B/P (MAP) Pulse Ox O2 Delivery O2 Flow Rate FiO2 03/05/20 19:50 67 164/111 03/05/20 19:49 18 03/05/20 16:30 98.2 96 Room Air Laboratory Data 24H Labs Laboratory Tests 2 03/05/20 13:16: Troponin I < 0.02 Current Medications Current Medications Medications (Trade) Dose Ordered Sig/Shanell Route PRN Reason Start Time Stop Time Status Last Admin Dose Admin Acetaminophen (Tylenol Tab) 650 mg Q6HP PRN PO HEADACHE or DISCOMFORT 03/02/20 17:00 03/02/20 21:19 Al Hydrox/Mg Hydrox/Simethicone (Mylanta) 30 ml Q4HP PRN PO HEARTBURN/INDIGESTION 03/02/20 17:00 03/05/20 11:38 Albuterol Sulfate (Proventil, Ventolin Hfa) 2 puff Q6HP PRN INH SHORTNESS OF BREATH 03/05/20 12:45 03/05/20 13:16 Amitriptyline HCl (Elavil) 25 mg QHS PO 03/02/20 21:00 03/05/20 19:49 Amitriptyline HCl (Elavil) 100 mg QHS PO 03/02/20 21:00 03/05/20 19:50 Aspirin (Aspirin Chewable) 324 mg STAT STAT PO 03/05/20 13:08 03/05/20 13:09 DC 03/05/20 13:15 Aspirin (Ecotrin) 81 mg DAILY PO 03/03/20 09:00 03/05/20 09:21 Atorvastatin Calcium (Lipitor) 40 mg QHS PO 03/03/20 21:00 03/05/20 19:52 Buspirone HCl (Buspar) 5 mg BID PO 03/03/20 21:00 03/05/20 19:49 Calcium Carbonate (Tums) 1,000 mg WM PO 03/04/20 08:00 03/05/20 17:38 Diazepam (Valium) 0.5 mg BID PO 03/03/20 21:00 03/06/20 22:00 03/05/20 19:52 Diazepam (Valium) 1 mg BID PO 03/02/20 21:00 03/03/20 15:34 DC 03/03/20 08:21 Haloperidol (Haldol) 2 mg Q6HP PRN PO AGITATION 03/02/20 17:00 Magnesium Hydroxide (Milk Of Magnesia) 30 ml DAILYPRN PRN PO CONSTIPATION 03/02/20 17:00 Morphine Sulfate (Ms Contin) 15 mg BID PO 03/04/20 13:00 03/05/20 19:49 Nicotine (Nicoderm Cq 21mg) 1 patch DAILY TD 03/04/20 09:00 03/05/20 09:24 Nitroglycerin (Nitrostat (1/ 150)) 0.4 mg Q5M PRN SL SEE LABEL COMMENTS 03/05/20 13:15 03/05/20 13:34 Olanzapine (ZyPREXA) 7.5 mg QHS PO 03/02/20 21:00 03/05/20 19:50 Omeprazole (PriLOSEC) 40 mg DAILY PO 03/03/20 09:00 03/05/20 09:24 Oxycodone HCl (Roxicodone, Oxyir) 5 mg BIDP PRN PO Breakthrough Pain 03/04/20 11:15 03/05/20 14:42 Oxycodone HCl (Roxicodone, Oxyir) 5 mg Q6HP PRN PO PAIN 03/02/20 17:00 03/04/20 11:26 DC 03/03/20 08:25 Primidone (Mysoline) 125 mg BID PO 03/02/20 21:00 03/05/20 19:49 Propranolol HCl (Inderal) 20 mg TID PO 03/02/20 21:00 03/05/20 19:50 Sucralfate (Carafate Suspension) 1 gm AC PO 03/02/20 17:30 03/05/20 16:40 Tiotropium [place] (Spiriva Handihaler) 1 inhalation DAILY@08 INH 03/03/20 08:00 03/05/20 07:31 Trazodone HCl (Desyrel) 50 mg QHSP PRN PO INSOMNIA 03/02/20 17:00 Valsartan (Diovan) 320 mg DAILY PO 03/03/20 09:00 03/05/20 09:22 Allergies Coded Allergies: Penicillins (Verified Allergy, Intermediate, HIVES, 02/29/20) albuterol (Verified Adverse Reaction, Mild, HYPER/SHAKY, 02/29/20) HONG DURBIN MD Mar 05, 2020 20:11
[2020-03-06 06:45] VITALS: BP 137/85
[2020-03-06] MEDS: SUCRALFATE SUSP 1GM/10ML UD PO SCH ×3 (07:43→17:03)
[2020-03-06] MEDS: TIOTROPIUM INHALER/CAPSULE (SPIRIVA) INH SCH (07:45)
[2020-03-06] MEDS: diazePAM 2 MG TAB PO SCH ×2 (08:48→20:12)
[2020-03-06] MEDS: PILL CUTTER 1 EACH XX PRN (08:48)
[2020-03-06] MEDS: CALCIUM CARBONATE 500 MG CHEW U/D PO SCH ×3 (08:49→17:30)
[2020-03-06] MEDS: OMEPRAZOLE 20 MG CAP PO SCH (08:49)
[2020-03-06] MEDS: busPIRone 5 MG TAB PO SCH ×2 (08:49→20:11)
[2020-03-06] MEDS: VALSARTAN 80 MG TAB (DIOVAN) PO SCH (08:49)
[2020-03-06] MEDS: PROPRANOLOL 20 MG TAB PO SCH ×3 (08:49→20:11)
[2020-03-06] MEDS: ASPIRIN 81 MG ENTERIC TAB PO SCH (08:49)
[2020-03-06] MEDS: PRIMIDONE 125MG PER 1/2 TABLET PO SCH ×2 (08:49→20:12)
[2020-03-06] MEDS: MORPHINE 15 MG SA TAB PO SCH ×2 (08:50→20:09)
[2020-03-06] MEDS: NICOTINE 21MG/24HR 1 EA TRANSDERMAL TD SCH (08:51)
--- NOTE | 2020-03-06 14:37 | MHIPNPDOC ---
[facility] Progress Note Progress Note Subjective: Jean-Paul is a 55 year old male with a history of STEFANO and chronic lower back pain who was brought into the [facility] ED by his for shortness of breath, but then later, admitted to the [facility] for what appeared to him displaying a myriad of psychotic symptoms. (Namely perceptual disturbances and mood changes/confusion) Jean-Paul today appeared to be much more disorganized in both his thought processes and behavior. The [place] people are coming to get me, theyre all after me, theyre coming to get me. Appeared markedly paranoid and responding to internal stimuli. Stated that he had very bad nightmares of people trying to push him off a building. Denies current passive or active suicidal or homicidal ideation, intent or plan. Sleep was poor with initial and middle insomnia. Appetite is fair. Still hard for me to get oxygen, the people are coming to get me. Objective: He was seen and evaluated, alert and oriented times three, cognition fair/poor, fair hygiene, thin body habitus, appears older than stated age, fair eye contact; He appeared somewhat restless today. Speech is somewhat increased in production, fast in rate and normal in volume. Mood: why, what?, affect: anxious and confused; TP are disorganized and perseverative; TC is anxious and obsessive in tone with paranoid and persecutory delusional themes. He denies any current passive or active suicidal or homicidal ideation, intent or plan. Denies AH/VH/TH but he does appear to be responding to internal stimuli; insight, impulse control and judgment are poor. Diagnosis: Unspecified psychotic disorder STEFANO A/P: Jean-Paul is a 55 year old male with a history of STEFANO and chronic lower back pain who was brought into the [facility] ED by his for shortness of breath, but then later, admitted to the [facility] for what appeared to him displaying a myriad of psychotic symptoms. (Namely perceptual disturbances and mood changes/confusion). 1) Symptoms may be the result of polypharmacy with multiple anti-cholinergic agents which can worsen mental status and cause confusion. Elavil is anti- cholinergic and especially when mixed with benzodiazepines (Hes prescribed Valium) and Oxycodone/opiates, a worsening of mental status changes are very likely to occur, especially in the Geriatric population. 2) Continue to collaborate with treatment team and Hospitalist. 3) Increased Zyprexa to 10 mg qhs to better alleviate psychotic sxs. 4) Q 15 min checks 1) Collaborate with discharge planners for the safest, most optimal, discharge, upon his clinical stabilization. 2) Continue to encourage participation with group programming and activities on the unit. Total time spent: 45 minutes Vital Signs Vital Signs Date Time Temp Pulse Resp B/P (MAP) Pulse Ox O2 Delivery O2 Flow Rate FiO2 03/06/20 08:50 18 03/06/20 08:49 137/85 03/06/20 08:49 86 03/06/20 06:45 98.3 99 Room Air Current Medications Current Medications Medications (Trade) Dose Ordered Sig/Shanell Route PRN Reason Start Time Stop Time Status Last Admin Dose Admin Acetaminophen (Tylenol Tab) 650 mg Q6HP PRN PO HEADACHE or DISCOMFORT 03/02/20 17:00 03/02/20 21:19 Al Hydrox/Mg Hydrox/Simethicone (Mylanta) 30 ml Q4HP PRN PO HEARTBURN/INDIGESTION 03/02/20 17:00 03/05/20 11:38 Albuterol Sulfate (Proventil, Ventolin Hfa) 2 puff Q6HP PRN INH SHORTNESS OF BREATH 03/05/20 12:45 03/05/20 13:16 Amitriptyline HCl (Elavil) 25 mg QHS PO 03/02/20 21:00 03/05/20 19:49 Amitriptyline HCl (Elavil) 100 mg QHS PO 03/02/20 21:00 03/05/20 19:50 Aspirin (Aspirin Chewable) 324 mg STAT STAT PO 03/05/20 13:08 03/05/20 13:09 DC 03/05/20 13:15 Aspirin (Ecotrin) 81 mg DAILY PO 03/03/20 09:00 03/06/20 08:49 Atorvastatin Calcium (Lipitor) 40 mg QHS PO 03/03/20 21:00 03/05/20 19:52 Buspirone HCl (Buspar) 5 mg BID PO 03/03/20 21:00 03/06/20 08:49 Calcium Carbonate (Tums) 1,000 mg WM PO 03/04/20 08:00 03/06/20 12:40 Diazepam (Valium) 0.5 mg BID PO 03/03/20 21:00 03/06/20 22:00 03/06/20 08:48 Diazepam (Valium) 1 mg BID PO 03/02/20 21:00 03/03/20 15:34 DC 03/03/20 08:21 Haloperidol (Haldol) 2 mg Q6HP PRN PO AGITATION 03/02/20 17:00 Magnesium Hydroxide (Milk Of Magnesia) 30 ml DAILYPRN PRN PO CONSTIPATION 03/02/20 17:00 Morphine Sulfate (Ms Contin) 15 mg BID PO 03/04/20 13:00 03/06/20 08:50 Nicotine (Nicoderm Cq 21mg) 1 patch DAILY TD 03/04/20 09:00 03/06/20 08:51 Nitroglycerin (Nitrostat (1/ 150)) 0.4 mg Q5M PRN SL SEE LABEL COMMENTS 03/05/20 13:15 03/05/20 13:34 Olanzapine (ZyPREXA) 7.5 mg QHS PO 03/02/20 21:00 03/06/20 12:45 DC 03/05/20 19:50 Olanzapine (ZyPREXA) 10 mg QHS PO 03/06/20 21:00 Omeprazole (PriLOSEC) 40 mg DAILY PO 03/03/20 09:00 03/06/20 08:49 Oxycodone HCl (Roxicodone, Oxyir) 5 mg BIDP PRN PO Breakthrough Pain 03/04/20 11:15 03/05/20 14:42 Oxycodone HCl (Roxicodone, Oxyir) 5 mg Q6HP PRN PO PAIN 03/02/20 17:00 03/04/20 11:26 DC 03/03/20 08:25 Primidone (Mysoline) 125 mg BID PO 03/02/20 21:00 03/06/20 08:49 Propranolol HCl (Inderal) 20 mg TID PO 03/02/20 21:00 03/06/20 08:49 Sucralfate (Carafate Suspension) 1 gm AC PO 03/02/20 17:30 03/06/20 11:58 Tiotropium [place] (Spiriva Handihaler) 1 inhalation DAILY@08 INH 03/03/20 08:00 03/06/20 07:45 Trazodone HCl (Desyrel) 50 mg QHSP PRN PO INSOMNIA 03/02/20 17:00 Valsartan (Diovan) 320 mg DAILY PO 03/03/20 09:00 03/06/20 08:49 Allergies Coded Allergies: Penicillins (Verified Allergy, Intermediate, HIVES, 02/29/20) albuterol (Verified Adverse Reaction, Mild, HYPER/SHAKY, 02/29/20) HONG DURBIN MD Mar 06, 2020 14:37
[2020-03-06 16:24] VITALS: BP 144/92
[2020-03-06] MEDS: AMITRIPTYLINE 25MG TABLET PO SCH (20:07)
[2020-03-06] MEDS: ATORVASTATIN 20 MG TAB PO SCH (20:07)
[2020-03-06] MEDS: AMITRIPTYLINE 50 MG TAB PO SCH (20:09)
[2020-03-06] MEDS ORDERED: OLANZapine 10 MG TAB PO SCH (21:00)
[2020-03-06 23:03] VITALS: BP 124/82
[2020-03-07] MEDS: oxyCODONE 5MG TAB PO PRN (05:33)
[2020-03-07 06:48] VITALS: BP 132/91
[2020-03-07] MEDS: SUCRALFATE SUSP 1GM/10ML UD PO SCH (07:24)
[2020-03-07] MEDS: OMEPRAZOLE 20 MG CAP PO SCH (07:25)
[2020-03-07] MEDS: busPIRone 5 MG TAB PO SCH (07:25)
[2020-03-07] MEDS: CALCIUM CARBONATE 500 MG CHEW U/D PO SCH (07:25)
[2020-03-07] MEDS: PRIMIDONE 125MG PER 1/2 TABLET PO SCH (07:25)
[2020-03-07] MEDS: TIOTROPIUM INHALER/CAPSULE (SPIRIVA) INH SCH (07:25)
[2020-03-07 07:26] VITALS: BP 132/91
[2020-03-07] MEDS: ASPIRIN 81 MG ENTERIC TAB PO SCH (07:26)
[2020-03-07] MEDS: VALSARTAN 80 MG TAB (DIOVAN) PO SCH (07:26)
[2020-03-07] MEDS: PROPRANOLOL 20 MG TAB PO SCH (07:26)
[2020-03-07] MEDS: MORPHINE 15 MG SA TAB PO SCH (07:26)
[2020-03-07] MEDS: NICOTINE 21MG/24HR 1 EA TRANSDERMAL TD SCH (07:27)
[2020-03-07] MEDS ORDERED: MORP15TASA PO (10:14)
[2020-03-07] MEDS ORDERED: OLAN7.5T PO (10:14)
[2020-03-07] MEDS ORDERED: AMIT50TA PO (10:14)
[2020-03-07] MEDS ORDERED: BUSP-29 PO (10:14)
[2020-03-07] MEDS ORDERED: OXYC-517 PO (10:14)
[2020-03-07] MEDS ORDERED: AMIT25TA17 PO (10:14)
[2020-03-07] MEDS ORDERED: OLAN10TA2 PO (11:03)
--- NOTE | 2020-03-07 13:13 | MHDSPDOC ---
[facility] Discharge Summary Discharge Summary DATE OF ADMISSION: Mar 02, 2020 at 18:29 DATE OF DISCHARGE: Mar 07, 2020 at 11:25 DISCHARGE DIAGNOSES: 1. unspecified psychotic disorder 2. generalized anxiety disorder 3. nicotine use disorder REASON FOR ADMISSION: Per the medical floor reports: Jean-Paul is a 55 year old male with a history of depression, generalized anxiety, chronic low back pain who presents to the ED after having been brought in by his with complaint of shortness of breath. The patient reports that he recently fell on black ice landing on his chest and today he experienced sudden shortness of breath related to that injury. Upon my entry into the room, the patient reports that all of his symptoms have completely resolved. He is no longer short of breath and is feeling well. Per ED M.D., who called the patient's , the patient has been having hallucinations and has been belligerent for the past several weeks. The patient has a history of generalized anxiety disorder and depression for which he recently started seeing a psychiatrist, Dr. Devine, at [facility]. The patient tells me that he has not had any issues with confusion, denies any hallucinations or mood changes, and feels as though his therapy is working. He does note that he has been unable to sleep and recently his primary care physician prescribed him gabapentin and amitriptyline. Looking back at his PCP notes he has been on both of these medications for some time now." Psychiatry was consulted and became concerned that he may be experiencing drug interactions secondary to polypharmacy and transferred him to [facility] for further evaluation and treatment Patient is a 55 -year-old , male, who reports he came in to the emergency room with his for shortness of breath and low blood pressure but after he got here, his blood pressure was normal. He states the ED sent him to the medical floor for observation. He denies having any hallucinations, co nfusion, or mood changes before admission, just mentioned that he had one episode of hearing "white noise" that has subsided. He reports he is unsure why he was transferred to [facility], but states that he has been having "a few problems with my health so I can understand that." He denies having depression or si but reports history of generalized anxiety disorder CONSULTANTS INVOLVED: - see hospitalist h&P - consulted with pain management TREATMENT AND PROGRESS ON THE UNIT: patient offered the following treatment modalities: 1) group therapy, 2) mileu therapy, 3) individual therapy 4) medication management and therapy HOSPITAL COURSE: Jean-Paul presented to the emergency room with his after he complained of SOB after falling on the ice at home. When he got to the emergency room, he reported that all of his symptoms resolved and he felt well. The ED M.D. called the patient's , who reported patient had been having hallucinations at home and had been belligerent for the past several weeks. He was admitted to the medical floor where he was treated for acute metabolic encephalopathy, possibly secondary to polypharmacy. Psychiatry was consulted due to the hallucinations and paranoid delusions after patient was treated for the encephalopathy due. Patient was transferred to [facility] with plan to stop cymbalta, titrate patient off valium (will titrate down to valium 0.5 mg po bid) and start buspar 5 mg po bid. Pain management was also consulted for recommendations for pain management, who suggested his morphine change from 15 mg po q8h to morphine 15 mg po bid and oxycodone hcl 5 mg po q6h prn break through pain to oxycodone 5 mg po bid prn break through pain. DISCHARGE ASSESSMENT: This morning Jean-Paul was receptive to meet and states that he is looking forward to discharge, reports "I have every desire to live out the rest of my life, I don't want to hurt myself or anyone else." He reported that over the weekend he was having "wild dreams" about but reported he was sleeping with his nicotine patch on. It was discussed that sleeping with the nicotine patch on was not recommended due to the side effect of vivid dreams. He states that yesterday the doctor increased his olanzapine to 10 mg and that he didn't have the vivid dreams, even while sleeping with the nicotine patch on. Jean-Paul then stated he was upset this morning because he thought he was going home but that his roommate told him he couldn't go home today and that he was going to be transferred to [facility] instead. It was discussed that this never was the plan. He then appeared to become mildly paranoid- made a statement that reported that he thought the police were outside of his room waiting for him and then he subsequently looked out the window. It was reinforced that the plan was for the patient to be discharged, that he was not going to [place], and that the police were not outside of the room. He was then able to sit and engage in reality based conversation throughout the rest of the interview. He was alert and oriented. He knew he was at [facility] , that the date was March 07 and that the president was "not Javier." After the discharge orders were entered, he was brought back in for a second interview, where he was able to engage in a reality based conversation. He reported he was still looking forward to discharge, but that during his stay he was having difficulties breat alonzo, states that he was going to see his "lung doctor while i'm here in town." He mentions that at home he has an albuterol inhaler and that he has not had it while here on the unit and believes that may be the cause of his breathing difficulties. He states that he is looking forward to going home to spend time with his and puppy. He states that for the rest of the week he was going to go and see "all of my other doctors." He was asked who told him he was going to [facility]. He again, states he heard it from his roommate. There was no more evidence of psychosis, or paranoia, he did not appear to be internally preoccupied, denied AH/VH. He denies si/hi and therefore, due to normal MSE, will be discharged. Patient is a 55 year old male who was laying in bed when approached but is agreeable to meet for the interview. He is pleasant, calm cooperative, easy to engage in session. Jean-Paul is alert and oriented x3. General Appearance: well groomed, ds/not appear stated age (older ), hospital scubs/clothing Build: average Demeanor: average Eye Contact: average Behavior: cooperative Speech: clear, spontaneous, normal volume, reg/rate,rhythm,volume Mood: euthymic Mood "good" Affect: full, appropriate Thought Process: logical/linear Thought Content (Delusions): denies SI, HI, AVH Thought Content (Other): none reported, appropriate, coherent Thought Content (Aggressive): none reported Perception (Hallucinations): auditory (reports +AH before admissions of "white noise" but currently denies ) - one episode of questionable paranoia - see assessment Perception (Other): none reported Cognition (Impairment of): none reported Cognition(Intelligence Est.): average Oriented: Awake, Alert, Oriented times three Insight: fair Judgment: fair Psychosis: Denies MEDICATIONS ON DISCHARGE: discontinue cymbalta 30 mg Continue valium 1 mg po daily Increase buspar to 10 mg jamil bid Continue morphine 15 mg po bid Continue oxycodone 5 mg po bidp breakthrough pain Continue all other home medications PLAN/FOLLOWUP ARRANGEMENTS: Follow up [facility] PCP The amount of time spent in the coordination of care for this patient was approximately 30 minutes. VITAL SIGNS: See below. CURRENT MEDICATIONS: See below. Vital Signs/I&Os Vital Signs Date Time Temp Pulse Resp B/P (MAP) Pulse Ox O2 Delivery O2 Flow Rate FiO2 03/07/20 07:26 16 03/07/20 07:26 66 132/91 03/07/20 06:48 97.6 98 Room Air Medications Scheduled Amitriptyline HCl (Amitriptyline HCl) 50 Mg Tablet, 100 MG PO QHS for mood/sleep, #14 Amitriptyline HCl (Amitriptyline HCl) 25 Mg Tablet, 25 MG PO QHS for moo/sleep, #7 Aspirin (Aspirin EC) 81 Mg Tablet.dr, 81 MG PO DAILY, (Reported) Atorvastatin Calcium (Atorvastatin Calcium) 40 Mg Tablet, 40 MG PO DAILY, (Reported) Buspirone HCl (Buspirone HCl) 10 Mg Tablet, 10 MG PO BID for anxiety, #14 Diazepam (Diazepam) 2 Mg Tablet, 1 TAB PO DAILY for anxiety, #4 Take 1/2 tablet daily Ipratropium/Albuterol Sulfate (Combivent Respimat 20-100 Mcg) 4 Gm Mist.inhal, 1 PUFF INH DAILY, (Reported) Morphine Sulfate (Morphine Sulfate ER) 15 Mg Tablet.er, 15 MG PO BID for pain, #14 Olanzapine (Olanzapine) 10 Mg Tablet, 1 TAB PO QHS for pyschosis, #7 Omeprazole (Omeprazole) 40 Mg Capsule.dr, 40 MG PO DAILY, (Reported) Primidone (Primidone) 250 Mg Tablet, 125 MG PO BID, (Reported) Propranolol HCl (Propranolol HCl) 20 Mg Tablet, 20 MG PO TID, (Reported) Sucralfate (Sucralfate) 1 Gm Tablet, 1 GM PO AC, (Reported) Tiotropium [place] (Spiriva Respimat) 4 Gm Mist.inhal, 2 PUFFS INH DAILY, (Reported) Valsartan (Valsartan) 320 Mg Tablet, 320 MG PO DAILY, (Reported) Scheduled PRN Oxycodone HCl (Oxycodone HCl) 5 Mg Tablet, 5 MG PO BIDP PRN for Breakthrough Pain, #14 Allergies Coded Allergies: Penicillins (Verified Allergy, Intermediate, HIVES, 02/29/20) albuterol (Verified Adverse Reaction, Mild, HYPER/SHAKY, 02/29/20) ANTONY ZALDIVAR NP Mar 07, 2020 13:01
[2020-03-07] MEDS ORDERED: DIAZ2TAB PO (13:32)
--- NOTE | 2020-03-08 16:03 | ECGEPIP ---
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 Prominent right-sided precordial R waves; consider RIGHT VENTRICULAR HYPERTROPHY versus prior posterior wall GA. Slightly different precordial lead placement from 02/29/20 Electronically Signed on 03-08-2020 16:03:16 EST by Umer Gallego
== END 2020-03-07 11:25 | disposition home or self-care (01) | DRG 881 ==
LOC: M PSY 18:29
PROVIDERS: ADMIT Psychiatry & Neurology Psychiatry; ATTEND Psychiatry & Neurology Psychiatry
DX: F32.9 Major depressive disorder, single episode, unspecified (principal); F41.1 Generalized anxiety disorder; F17.200 Nicotine dependence, unspecified, uncomplicated; M54.5 Low back pain; Z79.899 Other long term (current) drug therapy; Z79.82 Long term (current) use of aspirin; Z88.0 Allergy status to penicillin; Z88.8 Allergy status to other drugs, medicaments and biological substances; I10 Essential (primary) hypertension; R91.1 Solitary pulmonary nodule; D53.9 Nutritional anemia, unspecified; E55.9 Vitamin D deficiency, unspecified; J44.9 Chronic obstructive pulmonary disease, unspecified; R25.1 Tremor, unspecified; E78.5 Hyperlipidemia, unspecified

== ENCOUNTER 2020-03-24 05:02 | Emergency (ER) | payer BC, MEDICARE ==
[~2020-03-24] VITALS: Ht 175.3 cm; Wt 64.2 kg
[~2020-03-24 05:02] MED LIST changes: +AMIT50TA PO; +BUSP-29 PO; +MORP15TASA PO; +OLAN10TA2 PO; +OLAN7.5T PO; +OXYC-517 PO
[2020-03-24] MEDS ORDERED: GABA-282 PO (05:15)
--- OUTSIDE RECORDS SUMMARY | 2020-03-24 05:15 | CCD ---
Author Author [facility] Organization [facility] Address Unknown Phone Unavailable Care Team Providers Care Workforce Planner Name Role Phone Jakub BOWIE MD Unavailable [...] SETTER, Jakub JUDGE MD Unavailable Unavailable SETTER, Jaukb JUDGE MD Unavailable Unavailable SETTER, Jakub JUDGE [...] MD Unavailable Unavailable SETTERJakub MD Unavailable Unavailable SETTERJaukb MD Unavailable Unavailable SETTERJakub MD Unavailable Unavailable [...] SETTER, Jakub JUDGE MD Unavailable Unavailable SETTER, aJkub JUDGE MD Unavailable Unavailable SETTER, Jakub JUDGE [...] JUDGE MD Unavailable Unavailable MANJARREZ, R PATRICK OLIVE BRINE TESTER Unavailable Unavailable MANJARREZ, R PATRICK OLIVE BRINE TESTER Unavailable Unavailable MANJARREZ, R PATRICK OLIVE BRINE TESTER Unavailable Unavailable MANJARREZ, R PATRICK OLIVE BRINE TESTER Unavailable Unavailable MANJARREZ, R PATRICK OLIVE BRINE TESTER Unavailable Unavailable MANJARREZ, R PATRICK OLIVE BRINE TESTER Unavailable Unavailable MANJARREZ, R PATRICK OLIVE BRINE TESTER Unavailable Unavailable MANJARREZ, R PATRICK OLIVE BRINE TESTER Unavailable Unavailable MANJARREZ, R PATRICK OLIVE BRINE TESTER Unavailable Unavailable MANJARREZ, R PATRICK OLIVE BRINE TESTER Unavailable Unavailable MANJARREZ, R PATRICK OLIVE BRINE TESTER Unavailable Unavailable MANJARREZ, R PATRICK OLIVE BRINE TESTER Unavailable Unavailable MANJARREZ, R PATRICK OLIVE BRINE TESTER Unavailable Unavailable MANJARREZ, R PATRICK OLIVE BRINE TESTER Unavailable Unavailable MANJARREZ, R PATRICK OLIVE BRINE TESTER Unavailable Unavailable MANJARREZ, R PATRICK OLIVE BRINE TESTER Unavailable Unavailable MANJARREZ, R PATRICK OLIVE BRINE TESTER Unavailable Unavailable MANJARREZ, R PATRICK OLIVE BRINE TESTER Unavailable Unavailable MANJARREZ, R PATRICK OLIVE BRINE TESTER Unavailable Unavailable MANJARREZ, R PATRICK OLIVE BRINE TESTER Unavailable Unavailable MANJARREZ, R PATRICK OLIVE BRINE TESTER Unavailable Unavailable MANJARREZ, R PATRICK OLIVE BRINE TESTER Unavailable Unavailable MANJARREZ, R PATRICK OLIVE BRINE TESTER Unavailable Unavailable MANJARREZ, R PATRICK OLIVE BRINE TESTER Unavailable Unavailable MANJARREZ, R PATRICK OLIVE BRINE TESTER Unavailable Unavailable MANJARREZ, R PATRICK OLIVE BRINE TESTER Unavailable Unavailable MANJARREZ, R PATRICK OLIVE BRINE TESTER Unavailable Unavailable MANJARREZ, R PATRICK OLIVE BRINE TESTER Unavailable Unavailable MANJARREZ, R PATRICK OLIVE BRINE TESTER Unavailable Unavailable MANJARREZ, R PATRICK OLIVE BRINE TESTER Unavailable Unavailable MANJARREZ, R PATRICK OLIVE BRINE TESTER Unavailable Unavailable MANJARREZ, R PATRICK OLIVE BRINE TESTER Unavailable Unavailable MANJARREZ, R PATRICK OLIVE BRINE TESTER Unavailable Unavailable MANJARREZ, R PATRICK OLIVE BRINE TESTER Unavailable Unavailable MANJARREZ, R PATRICK OLIVE BRINE TESTER Unavailable Unavailable MANJARREZ, R PATRICK OLIVE BRINE TESTER Unavailable Unavailable MANJARREZ, R PATRICK OLIVE BRINE TESTER Unavailable Unavailable MANJARREZ, R PATRICK OLIVE BRINE TESTER Unavailable Unavailable MANJARREZ, R PATRICK OLIVE BRINE TESTER Unavailable Unavailable MANJARREZ, R PATRICK OLIVE BRINE TESTER Unavailable Unavailable MANJARREZ, R PATRICK OLIVE BRINE TESTER Unavailable Unavailable Poe, M Brigid OLIVE BRINE TESTER Unavailable Unavailable Poe, M Brigid OLIVE BRINE TESTER Unavailable Unavailable Poe, M Brigid OLIVE BRINE TESTER Unavailable Unavailable Poe, M Brigid OLIVE BRINE TESTER Unavailable Unavailable Poe, M Brigid OLIVE BRINE TESTER Unavailable Unavailable Poe, M Brigid OLIVE BRINE TESTER Unavailable Unavailable Poe, M Brigid OLIVE BRINE TESTER Unavailable Unavailable Poe, M Brigid OLIVE BRINE TESTER Unavailable Unavailable Poe, M Brigid OLIVE BRINE TESTER Unavailable Unavailable Poe, M Brigid OLIVE BRINE TESTER Unavailable Unavailable Poe, M Brigid OLIVE BRINE TESTER Unavailable Unavailable Poe, M Brigid OLIVE BRINE TESTER Unavailable Unavailable Poe, M Brigid OLIVE BRINE TESTER Unavailable Unavailable Poe, M Brigid OLIVE BRINE TESTER Unavailable Unavailable Poe, M Brigid OLIVE BRINE TESTER Unavailable Unavailable Poe, M Brigid OLIVE BRINE TESTER Unavailable Unavailable Poe, M Brigid OLIVE BRINE TESTER Unavailable Unavailable Poe, M Brigid OLIVE BRINE TESTER Unavailable Unavailable Poe, M Brigid OLIVE BRINE TESTER Unavailable Unavailable Poe, M Brigid OLIVE BRINE TESTER Unavailable Unavailable Poe, M Brigid OLIVE BRINE TESTER Unavailable Unavailable Poe, M Brigid OLIVE BRINE TESTER Unavailable Unavailable Poe, M Brigid OLIVE BRINE TESTER Unavailable Unavailable Poe, M Brigid OLIVE BRINE TESTER Unavailable Unavailable Poe, M Brigid OLIVE BRINE TESTER Unavailable Unavailable Poe, M Brigid OLIVE BRINE TESTER Unavailable Unavailable Poe, M Brigid OLIVE BRINE TESTER Unavailable Unavailable Poe, M Brigid OLIVE BRINE TESTER Unavailable Unavailable Poe, M Brigid OLIVE BRINE TESTER Unavailable Unavailable Poe, M Brigid OLIVE BRINE TESTER Unavailable Unavailable Brooklyn Huber MD Unavailable Unavailable [...] is protected by Article 27-F of the [facility] Public Health law. If you continue you may have access to information: Regarding HIV / AIDS; Provided by facilities licensed or operated by the [facility] Office of Mental Health; or Provided by the [facility] Office for People With Developmental Disabilities. If such information is present, then the following [facility] mandated warning applies: This information has [...] law may result in a fine or mcc sentence or both. A general authorization for the release of medical or other information is NOT sufficient authorization for further disc losure. Allergies and Adverse Reactions Type Description Substance Reaction Status Data Source(s ) Drug allergy Dexamethasone Dexamethasone erythema Active eCW1 ( [facility]) Drug allergy Penicillin (For Allergies Use Only) Drug allergy told as a child to not take Active eCW1 ([facility]) Family History Family Member Name Family Member Gender Family Member Status Date o f Status Description Data Source(s) Unknown Male Problem MEDENT ([facility] ) Unknown Unknown Problem MEDENT ([facility], ) Unknown Unknown Problem MEDENT ([facility], ) Unknown Unknown Problem MEDENT ([facility]) Unknown Unknown Problem MEDENT ([facility]) Encounters Encounter Providers Location Date Indications Data Source(s ) Outpatient Attender: NU BOWIE MD 03/10/2020 12:00:00 [facility] [place] [address] [facility] [place] [address] 03/04/2020 12:00:00 AM EST eCW1 ([facility]) Unknown [address] [facility] [place] [address] 03/02/2020 12:00:00 AM EST eCW1 ([facility]) Unknown [address] [facility] [place] [address] 02/23/2020 12:00:00 AM EST eCW1 ([facility]) Unknown [address] [facility] [place] [address] 02/23/2020 12:00:00 AM EST eCW1 ([facility]) Unknown [address] [facility] [place] [address] 02/23/2020 12:00:00 AM EST eCW1 ([facility]) Unknown [address] [facility] [place] [address] 02/08/2020 12:00:00 AM EST eCW1 ([facility]) TeleMedicine Phone E/M by Phys 21-30 Min [address] [place] [address] 01/28/2020 12:00:00 AM EST eCW1 ([facility]) Outpatient Attender: NU BOWIE MD 01/28/2020 12:00:00 [facility] Unknown [address] [facility] [place] [address] 01/27/2020 12:00:00 AM EST eCW1 ([facility]) Unknown [address] [facility] Y [address] 01/27/2020 12:00:00 AM EST eCW1 ([facility]) Unknown [address] [facility] Y [address] 01/27/2020 12:00:00 AM EST [facility]CW1 ([facility]) Unknown [address] [facility] Y [address] 01/26/2020 12:00:00 AM EST [facility] Unknown [address] [facility] Y [address] 01/25/2020 12:00:00 AM EST [facility]1 [facility] [place] [address] [facility] [place] [address] 01/22/2020 12:00:00 AM EST eCW1 ([facility]) Unknown [address] [facility] Y [address] 01/20/2020 12:00:00 AM EST eCW1 ([facility] Unknown [address] [facility] Y [address] 01/20/2020 12:00:00 AM EST eCW1 ([facility]) ([facility]) [facility] Scheduled Visit [address] [place] [address] 01/19/2020 12:00:00 AM EST eCW1 ([facility]) Unknown [address] [facility] Y [address] 01/19/2020 12:00:00 AM EST eCW1 ([facility]) Unknown [address] [facility] [place] [address] 01/18/2020 12:00:00 AM EST eCW1 ([facility]) Unknown [address] [facility] [address] 01/18/2020 12:00:00 AM EST eCW1 ([facility]) Outpatient [address] [facility] [address] 01/15/2020 12:00:00 AM EST eCW1 ([facility]) Unknown [address] [facility] [address] 01/15/2020 12:00:00 AM EST eCW1 ([facility]) Unknown [address] [facility] [place] [address] 01/14/2020 12:00:00 AM EST eCW1 ([facility]) Unknown [address] [facility] [place] [address] 01/13/2020 12:00:00 AM EST eCW1 ([facility]) Unknown [address] [facility] [place] [address] 01/13/2020 12:00:00 AM EST eCW1 ([facility]) Unknown [address] [facility] [place] [address] 01/13/2020 12:00:00 AM EST eCW1 ([facility]) Outpatient Attender: NU BOWIE MD 01/13/2020 12:00:00 A [facility] Unknown [address] [facility] [address] 01/12/2020 12:00:00 AM EST eCW1 ([facility]) Unknown [address] [facility] [address] 01/12/2020 12:00:00 AM EST eCW1 ([facility]) Unknown [address] [facility] [place] [address] 01/12/2020 12:00:00 AM EST eCW1 ([facility]) Unknown [address] [facility] [address] 01/11/2020 12:00:00 AM EST eCW1 ([facility]) Unknown [address] [facility] [place] [address] 01/10/2020 12:00:00 AM EST eCW1 ([facility]) Unknown [address] [facility] [place] [address] 01/05/2020 12:00:00 AM EST eCW1 ([facility]) Unknown [address] [facility] [place] [address] 01/04/2020 12:00:00 AM EST eCW1 ([facility]) Unknown [address] [facility] [place] [address] 01/02/2020 12:00:00 AM EST eCW1 ([facility]) Unknown [address] [facility] [place] [address] 01/01/2020 12:00:00 AM EST eCW1 ([facility]) Unknown [address] [facility] [place] [address] 12/31/2019 12:00:00 AM EST eCW1 ([facility]) Unknown [address] [facility] [place] [address] 12/29/2019 12:00:00 AM EST eCW1 ([facility]) Unknown [address] [facility] [place] [address] 12/28/2019 12:00:00 AM EST eCW1 ([facility]) Unknown [address] [facility] [place] [address] 12/25/2019 12:00:00 AM EST eCW1 ([facility]) Outpatient [address] [facility] [place] [address] 12/24/2019 12:00:00 AM EST eCW1 ([facility]) Unknown [address] [facility] [place] [address] 12/24/2019 12:00:00 AM EST eCW1 ([facility]) Unknown [address] [facility] [place] [address] 12/24/2019 12:00:00 AM EST eCW1 ([facility]) Unknown [address] [facility] [place] [address] 12/24/2019 12:00:00 AM EST eCW1 ([facility]) Unknown [address] [facility] [place] [address] 12/24/2019 12:00:00 AM EST eCW1 ([facility]) Unknown [address] [facility] [place] [address] 12/23/2019 12:00:00 AM EST eCW1 ([facility]) Unknown [address] [facility] [place] [address] 12/23/2019 12:00:00 AM EST eCW1 ([facility]) Unknown [address] [facility] [place] [address] 12/23/2019 12:00:00 AM EST eCW1 ([facility]) Unknown [address] [facility] [place] [address] 12/22/2019 12:00:00 AM EST eCW1 ([facility]) Unknown [address] [facility] [place] [address] 12/22/2019 12:00:00 AM EST eCW1 ([facility]) Outpatient [address] [facility] [place] [address] 12/22/2019 12:00:00 AM EST eCW1 ([facility]) Unknown [address] [facility] [place] [address] 12/22/2019 12:00:00 AM EST eCW1 ([facility]) Unknown [address] [facility] [place] [address] 12/21/2019 12:00:00 AM EST eCW1 ([facility]) Unknown [address] [facility] [place] [address] 12/20/2019 12:00:00 AM EST eCW1 ([facility]) Unknown [address] [facility] Y [address] 12/18/2019 12:00:00 AM EST eCW1 ([facility]) Unknown [address] [facility] Y [address] 12/18/2019 12:00:00 AM EST eCW1 ([facility]) Unknown [address] [facility] Y [address] 12/18/2019 12:00:00 AM EST eCW1 ([facility]) Unknown [address] [facility] Y [address] 12/18/2019 12:00:00 AM EST eCW1 ([facility]) Outpatient [address] [facility] Y [address] 12/17/2019 12:00:00 AM EST eCW1 ([facility]) (PN Proc 45) Pain Procedure 45 [address] [place] [address] 12/11/2019 12:00:00 AM EDT eCW1 ([facility]) Unknown [address] [facility] [place] [address] 12/10/2019 12:00:00 AM EDT eCW1 ([facility]) Unknown [address] [facility] [address] 12/10/2019 12:00:00 AM EDT eCW1 ([facility]) Unknown [address] [facility] [place] [address] 12/09/2019 12:00:00 AM EDT eCW1 ([facility]) Unknown [address] [facility] Y [address] 12/07/2019 12:00:00 AM EDT eCW1 ([facility]) Unknown [address] [facility] Y [address] 12/01/2019 12:00:00 AM EDT eCW1 ([facility]) Unknown [address] [facility], [place] [address] 11/30/2019 12:00:00 AM EDT eCW1 ([facility]) Outpatient [address] [facility] Y [address] 11/30/2019 12:00:00 AM EDT eCW1 ([facility]) Unknown [address] [facility] Y [address] 11/29/2019 12:00:00 AM EDT eCW1 ([facility]) Outpatient [address] [facility] Y [address] 11/24/2019 12:00:00 AM EDT eCW1 ([facility]) Unknown [address] [facility] [place] [address] 11/17/2019 12:00:00 AM EDT eCW1 ([facility]) (PN Proc 45) Pain Procedure 45 [address] [place] [address] 11/12/2019 12:00:00 AM EDT eCW1 ([facility]) Unknown [address] [facility], [place] [address] 11/10/2019 12:00:00 AM EDT eCW1 ([facility]) Unknown [address] [facility] [address] 11/03/2019 12:00:00 AM EDT eCW1 ([facility]) Unknown [address] [facility] [place] [address] 11/03/2019 12:00:00 AM EDT eCW1 ([facility]) Unknown [address] [facility] Y [address] 11/03/2019 12:00:00 AM EDT eCW1 ([facility]) Unknown [address] [facility] Y [address] 11/03/2019 12:00:00 AM EDT eCW1 ([facility]) Unknown [address] [facility] Y [address] 11/03/2019 12:00:00 AM EDT eCW1 ([facility]) Unknown [address] [facility] [place] [address] 11/03/2019 12:00:00 AM EDT eCW1 ([facility]) [facility] [address] [facility] [address] 10/09/2019 12:00:00 AM EDT eCW1 ([facility]) Outpatient Attender: Brooklyn Huber MD Main office - [place] 09/28/2019 03:10:00 PM EDT MEDENT ([facility]) Outpatient Attender: Brooklyn Huber MD Main office - [place] 09/22/2019 11:30:00 AM EDT MEDENT ([facility] ) [facility] Center [address] [place] [address] 09/14/2019 12:00:00 AM EDT eCW1 ([facility]) Outpatient [address] [facility] [address] 09/04/2019 12:00:00 AM EDT eCW1 ([facility]) Unknown [address] [facility] [address] 09/03/2019 12:00:00 AM EDT eCW1 ([facility]) Unknown [address] [facility] [place] [address] 09/01/2019 12:00:00 AM EDT eCW1 ([facility]) Outpatient [address] [facility] [place] [address] 08/31/2019 12:00:00 AM EDT eCW1 ([facility]) Unknown [address] [facility] [address] 08/28/2019 12:00:00 AM EDT eCW1 ([facility]) Unknown [address] [facility] [place] [address] 08/27/2019 12:00:00 AM EDT eCW1 ([facility]) Unknown [address] [facility] [place] [address] 08/27/2019 12:00:00 AM EDT eCW1 ([facility]) Unknown [address] [facility] [place] [address] 08/26/2019 12:00:00 AM EDT eCW1 ([facility]) Outpatient [address] [facility] [place] [address] 08/25/2019 12:00:00 AM EDT eCW1 ([facility]) Outpatient Attender: PATRICK MANJARREZ NP 08/25/2019 12:00:0 0 AM EDT [facility] Unknown [address] [facility] [address] 08/19/2019 12:00:00 AM EDT eCW1 ([facility]) Outpatient Referrer: Brigid Poe NP 08/13/2019 05:20:00 AM EDT [facility] Radiology Imaging Office Visit, Est Pt., Level 3 PC [address] [place] [address] 08/13/2019 12:00:00 AM EDT eCW1 ([facility]) Outpatient [address] [facility] [place] [address] 08/04/2019 12:00:00 AM EDT eCW1 ([facility]) Unknown [address] [facility] [address] 08/03/2019 12:00:00 AM EDT eCW1 ([facility]) [facility] Pain Center [address] [place] [address] 07/30/2019 12:00:00 AM EDT eCW1 ([facility]) Outpatient Referrer: Brigid Poe NP 07/29/2019 05:54:00 AM EDT [facility] Radiology Imaging [facility] Pain Center [address] [place] [address] 07/29/2019 12:00:00 AM EDT eCW1 ([facility]) Unknown [address] [facility] [place] [address] 07/28/2019 12:00:00 AM EDT eCW1 ([facility]) Unknown [address] [facility] Y [address] 07/24/2019 12:00:00 AM EDT eCW1 ([facility]) Unknown [address] [facility] [place] [address] 07/22/2019 12:00:00 AM EDT eCW1 ([facility]) Outpatient [address] [facility] Y [address] 07/14/2019 12:00:00 AM EDT eCW1 ([facility]) TeleMedicine Phone E/M by Phys 11-[address] [place] [address] 07/13/2019 12:00:00 AM EDT eCW1 ([facility]) [facility] Pain Center [address] [place] [address] 07/13/2019 12:00:00 AM EDT eCW1 ([facility]) [facility] [address] [place] [address] 07/07/2019 12:00:00 AM EDT eCW1 ([facility]) [facility] [address] [facility] [address] 06/25/2019 12:00:00 AM EDT eCW1 ([facility]) [facility] [address] [place] [address] 06/24/2019 12:00:00 AM EDT eCW1 ([facility]) [facility] [address] [place] [address] 06/16/2019 12:00:00 AM EDT eCW1 ([facility]) [facility] [address] [place] [address] 06/12/2019 12:00:00 AM EDT eCW1 ([facility]) [facility] [address] [place] [address] 06/03/2019 12:00:00 AM EDT eCW1 ([facility]) [facility] [address] [facility] [address] 06/03/2019 12:00:00 AM EDT eCW1 ([facility]) Outpatient Attender: NU BOWIE MD 06/03/2019 12:00:00 A [facility] Pain Center [address] [place] [address] 05/28/2019 12:00:00 AM EDT eCW1 ([facility]) [facility] Pain Center [address] [place] [address] 05/27/2019 12:00:00 AM EDT eCW1 ([facility]) [facility] Pain Center [address] [place] [address] 05/27/2019 12:00:00 AM EDT eCW1 ([facility]) [facility] [address] [facility] [address] 05/22/2019 12:00:00 AM EDT eCW1 ([facility]) [facility] Pain Center [address] [place] [address] 05/21/2019 12:00:00 AM EDT eCW1 ([facility]) [facility] [address] [facility] [address] 05/20/2019 12:00:00 AM EDT eCW1 ([facility]) [facility] Pain Center [address] [place] [address] 05/18/2019 12:00:00 AM EDT eCW1 ([facility]) [facility] Dermatology [address] [place] [address] 05/15/2019 12:00:00 AM EDT eCW1 ([facility]) [facility] Pain Center [address] [place] [address] 05/12/2019 12:00:00 AM EDT eCW1 ([facility]) [facility] Pain Center [address] [place] [address] 05/12/2019 12:00:00 AM EDT eCW1 ([facility]) [facility] Jay [address] [facility] [address] 05/08/2019 12:00:00 AM EDT eCW1 ([facility]) [facility] Jay [address] [facility] [address] 05/05/2019 12:00:00 AM EDT eCW1 ([facility]) [facility] [address] [place] [address] 05/01/2019 12:00:00 AM EDT eCW1 ([facility]) [facility] Jay [address] [place] [address] [place] [address] 04/30/2019 12:00:00 AM EDT eCW1 ([facility]) [facility] Pain Center [address] [place] [phone] 04/30/2019 12:00:00 AM EDT eCW1 ([facility]) [facility] [address] [place] [phone] 04/21/2019 12:00:00 AM EDT eCW1 ([facility]) [facility] [address] [place] [phone] 04/16/2019 12:00:00 AM EST eCW1 ([facility]) [facility] [place] [address] [facility] [place] [phone] 04/15/2019 12:00:00 AM EST eCW1 ([facility]) [facility] [place] [address] [place] [address] Y [phone] 04/14/2019 12:00:00 AM EST eCW1 ([facility]) [facility] [address] [place] [phone] 04/09/2019 12:00:00 AM EST eCW1 ([facility]) [facility] [address] [place] [phone] 04/08/2019 12:00:00 AM EST eCW1 ([facility]) Outpatient Referrer: Brigid Poe NP 04/07/2019 08:15:00 AM EST [facility] [address] [facility] [phone] 04/07/2019 12:00:00 AM EST eCW1 ([facility]) [address] [phone] 04/06/2019 12:00:00 AM EST eCW1 ([facility]) [facility] [address] [place] [address] [place] [phone] 04/02/2019 12:00:00 AM EST eCW1 ([facility]) Outpatient Attender: NU BOWIE MD [id number] 2019 12:00:00 AM EST - 04/20/2019 07:15:28 AM EDT Lesion of ulnar nerve, right upper limb [facility] Lesion of ulnar nerve, right upper limb [facility] [address] [facility] [address] 03/31/2019 12:00:00 AM EST eCW1 ([facility] [place]) [facility] [address] [place] [phone] 03/27/2019 12:00:00 AM EST eCW1 ([facility]) [facility] Jay [address] [place] [phone] 03/26/2019 12:00:00 AM EST eCW1 ([facility]) [facility] [address] [place] [phone] 03/26/2019 12:00:00 AM EST eCW1 ([facility] [place]) [facility] [address] [place] [phone] 03/25/2019 12:00:00 AM EST eCW1 ([facility] [place]) [facility] [address] [place] [phone] 03/25/2019 12:00:00 AM EST eCW1 ([facility]) [facility] [address] [place] [phone] 03/23/2019 12:00:00 AM EST eCW1 ([facility]) [facility] [address] [place] [phone] 03/10/2019 12:00:00 AM EST eCW1 ([facility]) Outpatient Attender: NU BOWIE MD 03/05/2019 12:00:00 A [facility] [address] [place], [place] [phone] 03/02/2019 12:00:00 AM EST eCW1 ([facility]) [facility] Pain Center [address] [place], [place] [phone] 02/27/2019 12:00:00 AM EST eCW1 ([facility]) [facility] Pain Center [address] [place] [address] 02/24/2019 12:00:00 AM EST eCW1 ([facility]) [facility] Pain Center [address] [place] [phone] 02/23/2019 12:00:00 AM EST eCW1 ([facility]) [facility] [address] [place] [phone] 02/16/2019 12:00:00 AM EST eCW1 ([facility]) [facility] [address] [place] [phone] 02/13/2019 12:00:00 AM EST eCW1 ([facility]) [facility] [address] [place] [phone] 02/13/2019 12:00:00 AM EST eCW1 ([facility]) [facility] [address] [place] [phone] 02/12/2019 12:00:00 AM EST eCW1 ([facility]) Immunizations Vaccine Date Status Description Data Source(s) influenza, recombinant, quadrIvalent,injectable, prese rvative free 01/15/2020 10:57:00 AM EST completed eCW1 ([facility]) influenza, recombinant, quadrIvalent,injectable, prese rvative free 01/15/2020 10:57:00 AM EST completed eCW1 ([facility]) influenza, recombinant, quadrIvalent,injectable, prese rvative free 01/15/2020 10:57:00 AM EST completed eCW1 ([facility]) influenza, recombinant, quadrIvalent,injectable, prese rvative free 01/15/2020 10:57:00 AM EST completed eCW1 ([facility]) influenza, recombinant, quadrIvalent,injectable, prese rvative free 01/15/2020 10:57:00 AM EST completed eCW1 ([facility]) influenza, recombinant, quadrIvalent,injectable, prese rvative free 01/15/2020 10:57:00 AM EST completed eCW1 ([facility]) influenza, recombinant, quadrIvalent,injectable, prese rvative free 01/15/2020 10:57:00 AM EST completed eCW1 ([facility]) influenza, recombinant, quadrIvalent,injectable, prese rvative free 01/15/2020 10:57:00 AM EST completed eCW1 ([facility]) influenza, recombinant, quadrIvalent,injectable, prese rvative free 01/15/2020 10:57:00 AM EST completed eCW1 ([facility]) influenza, recombinant, quadrIvalent,injectable, prese rvative free 01/15/2020 10:57:00 AM EST completed eCW1 ([facility]) influenza, recombinant, quadrIvalent,injectable, prese rvative free 01/15/2020 10:57:00 AM EST completed eCW1 ([facility]) influenza, recombinant, quadrIvalent,injectable, prese rvative free 01/15/2020 10:57:00 AM EST completed eCW1 ([facility]) influenza, recombinant, quadrIvalent,injectable, prese rvative free 01/15/2020 10:57:00 AM EST completed eCW1 ([facility]) influenza, recombinant, quadrIvalent,injectable, prese rvative free 01/15/2020 10:57:00 AM EST completed eCW1 ([facility]) influenza, recombinant, quadrIvalent,injectable, prese rvative free 01/15/2020 10:57:00 AM EST completed eCW1 ([facility]) influenza, recombinant, quadrIvalent,injectable, prese rvative free 01/15/2020 10:57:00 AM EST completed eCW1 ([facility]) influenza, recombinant, quadrIvalent,injectable, prese rvative free 01/15/2020 10:57:00 AM EST completed eCW1 ([facility]) influenza, recombinant, quadrIvalent,injectable, prese rvative free 01/15/2020 10:57:00 AM EST completed eCW1 ([facility]) influenza, recombinant, quadrIvalent,injectable, prese rvative free 01/15/2020 10:57:00 AM EST completed eCW1 ([facility]) influenza, recombinant, quadrIvalent,injectable, prese rvative free 01/15/2020 10:57:00 AM EST completed eCW1 ([facility]) influenza, recombinant, quadrIvalent,injectable, prese rvative free 01/15/2020 10:57:00 AM EST completed eCW1 ([facility]) influenza, recombinant, quadrIvalent,injectable, prese rvative free 01/15/2020 10:57:00 AM EST completed eCW1 ([facility]) influenza, recombinant, quadrIvalent,injectable, prese rvative free 01/15/2020 10:57:00 AM EST completed eCW1 ([facility]) influenza, recombinant, quadrIvalent,injectable, prese rvative free 01/15/2020 10:57:00 AM EST completed eCW1 ([facility]) influenza, recombinant, quadrIvalent,injectable, prese rvative free 01/15/2020 10:57:00 AM EST completed eCW1 ([facility]) Medications Medication Brand Name Start Date Product Form Dose Route Admi nistrative Instructions Pharmacy Instructions Status Indications Reaction Description Data Source(s) olanzapine 7.5 MG Oral Tablet OLANZAPINE 03/08/2020 12:00:00 AM EST ta blet 7 TAKE ONE TABLET BY MOUTH AT BEDTIME FOR PSYCHOSIS TAKE ONE TABLET BY MOUTH AT BEDTIME FOR PSYCHOSIS SOLD: 03/08/2020 [facility] olanzapine 7.5 MG Oral Tablet OLANZAPINE 03/08/2020 12:00:00 AM EST ta blet 7 TAKE ONE TABLET BY MOUTH AT BEDTIME FOR PSYCHOSIS TAKE ONE TABLET BY MOUTH AT BEDTIME FOR PSYCHOSIS SOLD: 03/15/2020 [facility] 2 mg 03/07/2020 12:00:00 AM EST tablet 4 TAKE ONE HALF TABLET BY MOUTH DAILY MAXIMUM DAILY DOSE = ONE HALF TABLET TAKE ONE HALF TABLET BY MOUTH DAILY MAXI MUM DAILY DOSE = ONE HALF TABLET SOLD: 03/07/2020 [facility] 50 mg 03/07/2020 12:00:00 AM EST tablet 14 TAKE TWO TABLET BY MOUTH AT BEDTIME FOR MOOD/SLEEP TAKE TWO TABLET BY MOUTH AT BEDTIME FOR MOOD/SLEEP NEIL [facility] olanzapine 10 MG Oral Tablet OLANZAPINE [...] MOUTH AT BEDTIME FOR PSYCHOSIS SOLD: 03/13/2020 [facility] Amitriptyline Hydrochloride 25 MG Oral Tablet AMITRIPTYLINE HCL 03/07/2020 12:00:00 AM EST tablet 7 TAKE ONE TABLET BY MOUTH AT BEDTIME FOR MOOD/SLEEP TAKE ONE TABLET BY MOUTH AT BEDTIME FOR MOOD/SLEEP SOLD: 03/07/2020 [facility] buspirone hydrochloride 10 MG Oral Tablet BUSPIRONE HCL 03/07/2020 12:00:00 AM EST tablet 14 TAKE ONE TABLET BY MOUTH TWI CE A DAY FOR ANXIETY TAKE ONE TABLET BY MOUTH TWICE A DAY FOR ANXIETY SOLD: 03/18/2020 [facility] buspirone hydrochloride 10 MG Oral Tablet BUSPIRONE HCL 03/07/2020 12:00:00 AM EST tablet 14 TAKE ONE TABLET BY MOUTH TWI CE A DAY FOR ANXIETY TAKE ONE TABLET BY MOUTH TWICE A DAY FOR ANXIETY SOLD: 03/13/2020 [facility] buspirone hydrochloride 10 MG Oral Tablet BUSPIRONE [...] AT BEDTIME FOR MOOD/SLEEP NEIL [facility] Amitriptyline Hydrochloride 25 MG Oral Tablet AMITRIPTYLINE HCL 03/07/2020 12:00:00 AM EST tablet 7 TAKE ONE TABLET BY MOUTH AT BEDTIME FOR MOOD/SLEEP TAKE ONE TABLET BY MOUTH AT BEDTIME FOR MOOD/SLEEP SOLD: 03/16/2020 [facility] 300 mg 03/01/2020 12:00:00 AM EST capsule 30 TAKE ONE CAPSULE BY MOUTH EVERY DAY IN THE MORNING DIRECTED TAKE ONE CAPSULE BY MOUTH EVERY DAY IN T HE MORNING DIRECTED SOLD: 03/04/2020 [facility] 300 mg 03/01/2020 12:00:00 AM EST capsule 30 TAKE ONE CAPSULE BY MOUTH EVERY DAY IN THE MORNING DIRECTED TAKE ONE CAPSULE BY MOUTH EVERY DAY IN T HE MORNING DIRECTED SOLD: 03/16/2020 [facility] 300 mg 03/01/2020 12:00:00 AM EST capsule 60 TAKE TWO CAPSULES BY MOUTH EVERY DAY IN THE EVENING USE DIRECTED TAKE TWO CAPSULES BY MOUTH EVERY DAY IN THE EVENING USE DIRECTED SOLD: 03/04/2020 [facility] 10-325 mg 02/24/2020 12:00:00 AM EST [...] A DAY SOLD: 02/24/2020 [facility] Acetaminophen 325 MG / Oxycodone Hydroch loride 10 MG Oral Tablet [Percocet] Percocet 10-325 MG Percocet 10-325 MG 02/23/2020 12:00:00 AM EST 1.0 {tablet_as_needed} active Percocet 10-3 25 MG eCW1 ([facility]) Morphine Sulfate 15 MG Oral Tablet Morphine Sulfate 15 MG 12:00:00 AM EST 1.0 {tablet_as_needed} active M orphine Sulfate 15 MG eCW1 ([facility]) Acetaminophen 325 MG / Oxycodone Hydroch loride 10 MG Oral Tablet [Percocet] Percocet 10-325 MG Percocet 10-325 MG 02/23/2020 12:00:00 AM EST 1.0 {tablet_as_needed} active Percocet 10-3 25 MG eCW1 ([facility]) Morphine Sulfate 15 MG Oral Tablet Morphine Sulfate 15 MG 12:00:00 AM EST 1.0 {tablet_as_needed} active M orphine Sulfate 15 MG eCW1 ([facility]) Acetaminophen 325 MG / Oxycodone Hydroch loride 10 MG Oral Tablet [Percocet] Percocet 10-325 MG Percocet 10-325 MG 02/23/2020 12:00:00 AM EST 1.0 {tablet_as_needed} active Percocet 10-3 25 MG eCW1 ([facility]) Morphine Sulfate 15 MG Oral Tablet Morphine Sulfate 15 MG 12:00:00 AM EST 1.0 {tablet_as_needed} active M orphine Sulfate 15 MG eCW1 ([facility]) Morphine Sulfate 15 MG Oral Tablet Morphine Sulfate 15 MG 12:00:00 AM EST 1.0 {tablet_as_needed} active M orphine Sulfate 15 MG eCW1 ([facility]) Acetaminophen 325 MG / Oxycodone Hydroch loride 10 MG Oral Tablet [Percocet] Percocet 10-325 MG Percocet 10-325 MG 02/23/2020 12:00:00 AM EST 1.0 {tablet_as_needed} active Percocet 10-3 25 MG eCW1 ([facility]) Acetaminophen 325 MG / Oxycodone Hydroch loride 10 MG Oral Tablet [Percocet] Percocet 10-325 MG Percocet 10-325 MG 02/23/2020 12:00:00 AM EST 1.0 {tablet_as_needed} active Percocet 10-3 25 MG eCW1 ([facility]) Morphine Sulfate 15 MG Oral Tablet Morphine Sulfate 15 MG 12:00:00 AM EST 1.0 {tablet_as_needed} active M orphine Sulfate 15 MG eCW1 ([facility]) Budesonide 180 MCG/ACT UNK 02/16/2020 12:00:00 AM EST 1.0 {puff } active Budesonide 180 MCG/ACT eCW1 ([facility]) Budesonide 180 MCG/ACT UNK 02/16/2020 12:00:00 AM EST 1.0 {puff } active Budesonide 180 MCG/ACT eCW1 ([facility]) Budesonide 180 MCG/ACT UNK 02/16/2020 12:00:00 AM EST 1.0 {puff } active Budesonide 180 MCG/ACT eCW1 ([facility]) Budesonide 180 MCG/ACT UNK 02/16/2020 12:00:00 AM EST 1.0 {puff } active Budesonide 180 MCG/ACT eCW1 ([facility]) Budesonide 180 MCG/ACT UNK 02/16/2020 12:00:00 AM EST 1.0 {puff } active Budesonide 180 MCG/ACT eCW1 ([facility]) 2 mg 02/09/2020 12:00:00 AM EST [...] active Ipratropium-Albuterol 0.5-2.5 (3) MG/3ML eCW1 ([facility]) Albuterol 0.833 MG/ML / Ipratropium Brom krish 0.167 MG/ML Inhalant Solution Ipratropium-Albuterol 0.5-2.5 (3) MG/3ML Ipratropium-Albuterol 0.5-2.5 (3) MG/3ML 01/28/2020 12:00:00 AM EST 3.0 {ml_as_needed} active Ipratropium-Albuterol 0.5-2.5 (3) MG/3ML eCW1 ([facility]) Albuterol 0.833 MG/ML / Ipratropium Brom krish 0.167 MG/ML Inhalant Solution Ipratropium-Albuterol 0.5-2.5 (3) MG/3ML Ipratropium-Albuterol 0.5-2.5 (3) MG/3ML 01/28/2020 12:00:00 AM EST 3.0 {ml_as_needed} active Ipratropium-Albuterol 0.5-2.5 (3) MG/3ML eCW1 ([facility]) Albuterol 0.833 MG/ML / Ipratropium Brom krish 0.167 MG/ML Inhalant Solution Ipratropium-Albuterol 0.5-2.5 (3) MG/3ML Ipratropium-Albuterol 0.5-2.5 (3) MG/3ML 01/28/2020 12:00:00 AM EST 3.0 {ml_as_needed} active Ipratropium-Albuterol 0.5-2.5 (3) MG/3ML eCW1 ([facility]) Albuterol 0.833 MG/ML / Ipratropium Brom krish 0.167 MG/ML Inhalant Solution Ipratropium-Albuterol 0.5-2.5 (3) MG/3ML Ipratropium-Albuterol 0.5-2.5 (3) MG/3ML 01/28/2020 12:00:00 AM EST 3.0 {ml_as_needed} active Ipratropium-Albuterol 0.5-2.5 (3) MG/3ML eCW1 ([facility]) Albuterol 0.833 MG/ML / Ipratropium Brom krish 0.167 MG/ML Inhalant Solution Ipratropium-Albuterol 0.5-2.5 (3) MG/3ML Ipratropium-Albuterol 0.5-2.5 (3) MG/3ML 01/28/2020 12:00:00 AM EST 3.0 {ml_as_needed} active Ipratropium-Albuterol 0.5-2.5 (3) MG/3ML eCW1 ([facility]) Albuterol 0.833 MG/ML / Ipratropium Brom krish 0.167 MG/ML Inhalant Solution Ipratropium-Albuterol 0.5-2.5 (3) MG/3ML Ipratropium-Albuterol 0.5-2.5 (3) MG/3ML 01/28/2020 12:00:00 AM EST 3.0 {ml_as_needed} active Ipratropium-Albuterol 0.5-2.5 (3) MG/3ML eCW1 ([facility]) Albuterol 0.833 MG/ML / Ipratropium Brom krish 0.167 MG/ML Inhalant Solution Ipratropium-Albuterol 0.5-2.5 (3) MG/3ML Ipratropium-Albuterol 0.5-2.5 (3) MG/3ML 01/28/2020 12:00:00 AM EST 3.0 {ml_as_needed} active Ipratropium-Albuterol 0.5-2.5 (3) MG/3ML eCW1 ([facility]) Albuterol 0.833 MG/ML / Ipratropium Brom krish 0.167 MG/ML Inhalant Solution Ipratropium-Albuterol 0.5-2.5 (3) MG/3ML Ipratropium-Albuterol 0.5-2.5 (3) MG/3ML 01/28/2020 12:00:00 AM EST 3.0 {ml_as_needed} active Ipratropium-Albuterol 0.5-2.5 (3) MG/3ML eCW1 ([facility]) Albuterol 0.833 MG/ML / Ipratropium Brom krish 0.167 MG/ML Inhalant Solution Ipratropium-Albuterol 0.5-2.5 (3) MG/3ML Ipratropium-Albuterol 0.5-2.5 (3) MG/3ML 01/28/2020 12:00:00 AM EST 3.0 {ml_as_needed} active Ipratropium-Albuterol 0.5-2.5 (3) MG/3ML eCW1 ([facility]) Albuterol 0.833 MG/ML / Ipratropium Brom krish 0.167 MG/ML Inhalant Solution Ipratropium-Albuterol 0.5-2.5 (3) MG/3ML Ipratropium-Albuterol 0.5-2.5 (3) MG/3ML 01/28/2020 12:00:00 AM EST 3.0 {ml_as_needed} active Ipratropium-Albuterol 0.5-2.5 (3) MG/3ML eCW1 ([facility]) Morphine Sulfate 15 MG Oral Tablet Morphine Sulfate 15 MG 12:00:00 AM EST 1.0 {tablet_as_needed} active M orphine Sulfate 15 MG eCW1 ([facility]) Morphine Sulfate 15 MG Oral Tablet Morphine Sulfate 15 MG 12:00:00 AM EST 1.0 {tablet_as_needed} active M orphine Sulfate 15 MG eCW1 ([facility]) Morphine Sulfate 15 MG Oral Tablet Morphine Sulfate 15 MG 12:00:00 AM EST 1.0 {tablet_as_needed} active M orphine Sulfate 15 MG eCW1 ([facility]) Morphine Sulfate 15 MG Oral Tablet Morphine Sulfate 15 MG 12:00:00 AM EST 1.0 {tablet_as_needed} active M orphine Sulfate 15 MG eCW1 ([facility]) Morphine Sulfate 15 MG Extended Release Oral Tablet Mo rphine Sulfate ER 15 MG Morphine Sulfate ER 15 MG 01/27/2020 12:00:00 AM EST 1.0 {tablet} active Morphine Sulfate ER 15 MG eCW1 ( [facility]) Morphine Sulfate 15 MG Oral Tablet Morphine Sulfate 15 MG 12:00:00 AM EST 1.0 {tablet_as_needed} active M orphine Sulfate 15 MG eCW1 ([facility]) Morphine Sulfate ER 15 MG UNK 01/27/2020 12:00:00 AM EST 1.0 {tablet} active Morphine Sulfate ER 15 MG eCW1 ( [facility]) Morphine Sulfate ER 15 MG UNK 01/27/2020 12:00:00 AM EST 1.0 {tablet} active Morphine Sulfate ER 15 MG eCW1 ( [facility]) Morphine Sulfate 15 MG Oral Tablet Morphine Sulfate 15 MG 12:00:00 AM EST 1.0 {tablet_as_needed} active M orphine Sulfate 15 MG eCW1 ([facility]) Morphine Sulfate 15 MG Oral Tablet Morphine Sulfate 15 MG 12:00:00 AM EST 1.0 {tablet_as_needed} active M orphine Sulfate 15 MG eCW1 ([facility]) Morphine Sulfate 15 MG Oral Tablet Morphine Sulfate 15 MG 12:00:00 AM EST 1.0 {tablet_as_needed} active M orphine Sulfate 15 MG eCW1 ([facility]) 15 mg 01/27/2020 12:00:00 AM EST [...] Sulfate ER 15 MG eCW1 ( [facility]) Morphine Sulfate ER 15 MG UNK 01/26/2020 12:00:00 AM EST 1.0 {tablet} active Morphine Sulfate ER 15 MG eCW1 ( [facility]) Acetaminophen 325 MG / Oxycodone Hydroch loride 10 MG Oral Tablet [Percocet] Percocet 10-325 MG Percocet 10-325 MG 01/22/2020 12:00:00 AM EST 1.0 {tablet_as_needed} active Percocet 10-3 25 MG eCW1 ([facility]) Acetaminophen 325 MG / Oxycodone Hydroch loride 10 MG Oral Tablet [Percocet] Percocet 10-325 MG Percocet 10-325 MG 01/22/2020 12:00:00 AM EST 1.0 {tablet_as_needed} suspended Percocet 10 -325 MG eCW1 ([facility]) Acetaminophen 325 MG / Oxycodone Hydroch loride 10 MG Oral Tablet [Percocet] Percocet 10-325 MG Percocet 10-325 MG 01/22/2020 12:00:00 AM EST 1.0 {tablet_as_needed} suspended Percocet 10 -325 MG eCW1 ([facility]) Acetaminophen 325 MG / Oxycodone Hydroch loride 10 MG Oral Tablet [Percocet] Percocet 10-325 MG Percocet 10-325 MG 01/22/2020 12:00:00 AM EST 1.0 {tablet_as_needed} active Percocet 10-3 25 MG eCW1 ([facility]) Acetaminophen 325 MG / Oxycodone Hydroch loride 10 MG Oral Tablet [Percocet] Percocet 10-325 MG Percocet 10-325 MG 01/22/2020 12:00:00 AM EST 1.0 {tablet_as_needed} active Percocet 10-3 25 MG eCW1 ([facility]) Acetaminophen 325 MG / Oxycodone Hydroch loride 10 MG Oral Tablet [Percocet] Percocet 10-325 MG Percocet 10-325 MG 01/22/2020 12:00:00 AM EST 1.0 {tablet_as_needed} active Percocet 10-3 25 MG eCW1 ([facility]) Acetaminophen 325 MG / Oxycodone Hydroch loride 10 MG Oral Tablet [Percocet] Percocet 10-325 MG Percocet 10-325 MG 01/22/2020 12:00:00 AM EST 1.0 {tablet_as_needed} suspended Percocet 10 -325 MG eCW1 ([facility]) 10-325 mg 01/22/2020 12:00:00 AM EST [...] suspended Percocet 10 -325 MG eCW1 ([facility]) Acetaminophen 325 MG / Oxycodone Hydroch loride 10 MG Oral Tablet [Percocet] Percocet 10-325 MG Percocet 10-325 MG 01/22/2020 12:00:00 AM EST 1.0 {tablet_as_needed} active Percocet 10-3 25 MG eCW1 ([facility]) Acetaminophen 325 MG / Oxycodone Hydroch loride 10 MG Oral Tablet [Percocet] Percocet 10-325 MG Percocet 10-325 MG 01/22/2020 12:00:00 AM EST 1.0 {tablet_as_needed} active Percocet 10-3 25 MG eCW1 ([facility]) Acetaminophen 325 MG / Oxycodone Hydroch loride 10 MG Oral Tablet [Percocet] Percocet 10-325 MG Percocet 10-325 MG 01/22/2020 12:00:00 AM EST 1.0 {tablet_as_needed} suspended Percocet 10 -325 MG eCW1 ([facility]) Acetaminophen 325 MG / Oxycodone Hydroch loride 10 MG Oral Tablet [Percocet] Percocet 10-325 MG Percocet 10-325 MG 01/22/2020 12:00:00 AM EST 1.0 {tablet_as_needed} suspended Percocet 10 -325 MG eCW1 ([facility]) Acetaminophen 325 MG / Oxycodone Hydroch loride 10 MG Oral Tablet [Percocet] Percocet 10-325 MG Percocet 10-325 MG 01/22/2020 12:00:00 AM EST 1.0 {tablet_as_needed} active Percocet 10-3 25 MG eCW1 ([facility]) Morphine Sulfate ER 15 MG UNK 01/20/2020 12:00:00 AM EST 1.0 {tablet} active Morphine Sulfate ER 15 MG eCW1 ( [facility]) Morphine Sulfate ER 15 MG UNK 01/20/2020 12:00:00 AM EST 1.0 {tablet} active Morphine Sulfate ER 15 MG eCW1 ( [facility]) Morphine Sulfate ER 15 MG UNK 01/20/2020 12:00:00 AM EST 1.0 {tablet} active Morphine Sulfate ER 15 MG eCW1 ( [facility]) 1 gram 01/20/2020 12:00:00 AM EST tablet 90 TAKE ONE TABLET BY MOUTH THREE TIMES A DAY ON EMPTY STOMACH BEFORE MEAL TAKE ONE TABLET BY MOUTH THREE TIMES A DAY ON EMPTY STOMACH BEFORE MEAL SOLD: 01/21/2020 [facility] Morphine Sulfate ER 15 MG UNK 01/20/2020 12:00:00 AM EST 1.0 {tablet} active Morphine Sulfate ER 15 MG eCW1 ( [facility]) Morphine Sulfate ER 15 MG UNK 01/20/2020 12:00:00 AM EST 1.0 {tablet} active Morphine Sulfate ER 15 MG eCW1 ( [facility]) Morphine Sulfate ER 15 MG UNK 01/20/2020 12:00:00 AM EST 1.0 {tablet} active Morphine Sulfate ER 15 MG eCW1 ( [facility]) Morphine Sulfate ER 15 MG UNK 01/20/2020 12:00:00 AM EST 1.0 {tablet} active Morphine Sulfate ER 15 MG eCW1 ( [facility]) 1 gram 01/16/2020 12:00:00 AM EST tablet 30 TAKE ONE TABLET BY MOUTH ON AN EMPTY STOMACH BEFORE EACH MEAL TAKE ONE TABLET BY MOUTH ON AN EMPTY STO MACH BEFORE EACH MEAL SOLD: 01/20/2020 [facility] 40 mg 01/16/2020 12:00:00 AM EST capsule,delayed release (DR/EC) 30 TAKE ONE CAPSULE BY MOUTH 30 MINUTES BEFORE MORNING MEAL TAKE ONE CAPSULE BY MOUTH 30 MINUTES BEFORE MORNING MEAL SOLD: 01/20/2020 [facility] duloxetine 30 MG Delayed Release Oral Capsule [Cymbalt a] Cymbalta 30 MG Cymbalta 30 MG 01/13/2020 12:00:00 AM EST 1.0 {capsule} acti ve Cymbalta 30 MG eCW1 ([facility]ly [facility]) duloxetine 30 MG Delayed Release Oral Capsule [Cymbalt a] Cymbalta 30 MG Cymbalta 30 MG 01/13/2020 12:00:00 AM EST 1.0 {capsule} acti ve Cymbalta 30 MG eCW1 ([facility]) 30 mg 01/13/2020 12:00:00 AM EST capsule,delayed release (DR/EC) 60 TAKE ONE CAPSULE BY MOUTH TWICE A DAY TAKE ONE CAPSULE BY MOUTH TWICE A DAY SOLD: 01/20/2020 [facility] duloxetine 30 MG Delayed Release Oral Capsule [Cymbalt a] Cymbalta 30 MG Cymbalta 30 MG 01/13/2020 12:00:00 AM EST 1.0 {capsule} acti ve Cymbalta 30 MG eCW1 ([facility]) duloxetine 30 MG Delayed Release Oral Capsule [Cymbalt a] Cymbalta 30 MG Cymbalta 30 MG 01/13/2020 12:00:00 AM EST 1.0 {capsule} acti ve Cymbalta 30 MG eCW1 ([facility]) 30 mg 01/12/2020 12:00:00 AM EST [...] Spiriva R espimat 1.25 MCG/ACT eCW1 (Former[facility]) Spiriva Respimat 1.25 MCG/ACT Spiriva Respimat 1.25 MCG/ACT 12/29/2019 12:00:00 AM EST 2.0 {puffs} active Spiriva Resp imat 1.25 MCG/ACT eCW1 ([facility]) 250 mg 12/29/2019 12:00:00 AM EST tablet 30 TAKE ONE-HALF TABLET BY MOUTH TWICE A DAY TAKE ONE-HALF TABLET BY MOUTH TWICE A DAY SOLD: 12/29/2019 [facility] Spiriva Respimat 1.25 MCG/ACT Spiriva Respimat 1.25 MCG/ACT 12/29/2019 12:00:00 AM EST 2.0 {puffs} active Spiriva Resp imat 1.25 MCG/ACT eCW1 ([facility]) Spiriva Respimat 1.25 MCG/ACT Spiriva Respimat 1.25 MCG/ACT 12/29/2019 12:00:00 AM EST 2.0 {puffs} active Spiriva Resp imat 1.25 MCG/ACT eCW1 (Formerly [facility]) Spiriva Respimat 1.25 MCG/ACT Spiriva Respimat 1.25 MCG/ACT 12/29/2019 12:00:00 AM EST 2.0 {puffs} active Spiriva Resp imat 1.25 MCG/ACT eCW1 (Formerly [facility]) Spiriva Respimat 1.25 MCG/ACT Spiriva Respimat 1.25 MCG/ACT 12/29/2019 12:00:00 AM EST 2.0 {puffs} active Spiriva Resp imat 1.25 MCG/ACT eCW1 (Formerly [facility]) Spiriva Respimat 1.25 MCG/ACT Spiriva Respimat 1.25 MCG/ACT 12/29/2019 12:00:00 AM EST 2.0 {puffs} active Spiriva Resp imat 1.25 MCG/ACT eCW1 ([facility]ly [facility]) Spiriva Respimat 1.25 MCG/ACT Spiriva Respimat 1.25 MCG/ACT 12/29/2019 12:00:00 AM EST 2.0 {puffs} suspended Spiriva R espimat 1.25 MCG/ACT eCW1 ([facility]ly [facility]) Spiriva Respimat 1.25 MCG/ACT Spiriva Respimat 1.25 MCG/ACT 12/29/2019 12:00:00 AM EST 2.0 {puffs} suspended Spiriva R espimat 1.25 MCG/ACT eCW1 ([facility]ly [facility]) Spiriva Respimat 1.25 MCG/ACT Spiriva Respimat 1.25 MCG/ACT 12/29/2019 12:00:00 AM EST 2.0 {puffs} active Spiriva Resp imat 1.25 MCG/ACT eCW1 ([facility]) Spiriva Respimat 1.25 MCG/ACT Spiriva Respimat 1.25 MCG/ACT 12/29/2019 12:00:00 AM EST 2.0 {puffs} active Spiriva Resp imat 1.25 MCG/ACT eCW1 ([facility]) Spiriva Respimat 1.25 MCG/ACT Spiriva Respimat 1.25 MCG/ACT 12/29/2019 12:00:00 AM EST 2.0 {puffs} active Spiriva Resp imat 1.25 MCG/ACT eCW1 ([facility]) Spiriva Respimat 1.25 MCG/ACT Spiriva Respimat 1.25 MCG/ACT 12/29/2019 12:00:00 AM EST 2.0 {puffs} active Spiriva Resp imat 1.25 MCG/ACT eCW1 ([facility]) Spiriva Respimat 1.25 MCG/ACT Spiriva Respimat 1.25 MCG/ACT 12/29/2019 12:00:00 AM EST 2.0 {puffs} active Spiriva Resp imat 1.25 MCG/ACT eCW1 ([facility]) Spiriva Respimat 1.25 MCG/ACT Spiriva Respimat 1.25 MCG/ACT 12/29/2019 12:00:00 AM EST 2.0 {puffs} suspended Spiriva R espimat 1.25 MCG/ACT eCW1 ([facility]) Spiriva Respimat 1.25 MCG/ACT Spiriva Respimat 1.25 MCG/ACT 12/29/2019 12:00:00 AM EST 2.0 {puffs} active Spiriva Resp imat 1.25 MCG/ACT eCW1 ([facility]) Spiriva Respimat 1.25 MCG/ACT Spiriva Respimat 1.25 MCG/ACT 12/29/2019 12:00:00 AM EST 2.0 {puffs} active Spiriva Resp imat 1.25 MCG/ACT eCW1 ([facility]) Spiriva Respimat 1.25 MCG/ACT Spiriva Respimat 1.25 MCG/ACT 12/29/2019 12:00:00 AM EST 2.0 {puffs} active Spiriva Resp imat 1.25 MCG/ACT eCW1 ([facility]) Spiriva Respimat 1.25 MCG/ACT Spiriva Respimat 1.25 MCG/ACT 12/29/2019 12:00:00 AM EST 2.0 {puffs} active Spiriva Resp imat 1.25 MCG/ACT eCW1 ([facility]) Spiriva Respimat 1.25 MCG/ACT Spiriva Respimat 1.25 MCG/ACT 12/29/2019 12:00:00 AM EST 2.0 {puffs} active Spiriva Resp imat 1.25 MCG/ACT eCW1 ([facility]) Spiriva Respimat 1.25 MCG/ACT Spiriva Respimat 1.25 MCG/ACT 12/29/2019 12:00:00 AM EST 2.0 {puffs} suspended Spiriva R espimat 1.25 MCG/ACT eCW1 ([facility]) Spiriva Respimat 1.25 MCG/ACT Spiriva Respimat 1.25 MCG/ACT 12/29/2019 12:00:00 AM EST 2.0 {puffs} active Spiriva Resp imat 1.25 MCG/ACT eCW1 ([facility]) Spiriva Respimat 1.25 MCG/ACT Spiriva Respimat 1.25 MCG/ACT 12/29/2019 12:00:00 AM EST 2.0 {puffs} active Spiriva Resp imat 1.25 MCG/ACT eCW1 ([facility]) Spiriva Respimat 1.25 MCG/ACT Spiriva Respimat 1.25 MCG/ACT 12/29/2019 12:00:00 AM EST 2.0 {puffs} active Spiriva Resp imat 1.25 MCG/ACT eCW1 ([facility]) Spiriva Respimat 1.25 MCG/ACT Spiriva Respimat 1.25 MCG/ACT 12/29/2019 12:00:00 AM EST 2.0 {puffs} active Spiriva Resp imat 1.25 MCG/ACT eCW1 ([facility]) Spiriva Respimat 1.25 MCG/ACT Spiriva Respimat 1.25 MCG/ACT 12/29/2019 12:00:00 AM EST 2.0 {puffs} active Spiriva Resp imat 1.25 MCG/ACT eCW1 ([facility]) Spiriva Respimat 1.25 MCG/ACT Spiriva Respimat 1.25 MCG/ACT 12/29/2019 12:00:00 AM EST 2.0 {puffs} active Spiriva Resp imat 1.25 MCG/ACT eCW1 ([facility]) 20 mg 12/29/2019 12:00:00 AM EST tablet 90 TAKE ONE TABLET BY MOUTH THREE TIMES A DAY TAKE ONE TABLET BY MOUTH THREE TIMES A DAY SOLD: 01/26/2020 [facility] Spiriva Respimat 1.25 MCG/ACT Spiriva Respimat 1.25 MCG/ACT 12/29/2019 12:00:00 AM EST 2.0 {puffs} suspended Spiriva R espimat 1.25 MCG/ACT eCW1 ([facility]) Spiriva Respimat 1.25 MCG/ACT Spiriva Respimat 1.25 MCG/ACT 12/29/2019 12:00:00 AM EST 2.0 {puffs} suspended Spiriva R espimat 1.25 MCG/ACT eCW1 ([facility]) Spiriva Respimat 1.25 MCG/ACT Spiriva Respimat 1.25 MCG/ACT 12/29/2019 12:00:00 AM EST 2.0 {puffs} active Spiriva Resp imat 1.25 MCG/ACT eCW1 ([facility]) Spiriva Respimat 1.25 MCG/ACT Spiriva Respimat 1.25 MCG/ACT 12/29/2019 12:00:00 AM EST 2.0 {puffs} suspended Spiriva R espimat 1.25 MCG/ACT eCW1 ([facility]) Spiriva Respimat 1.25 MCG/ACT Spiriva Respimat 1.25 MCG/ACT 12/29/2019 12:00:00 AM EST 2.0 {puffs} active Spiriva Resp imat 1.25 MCG/ACT eCW1 ([facility]) Spiriva Respimat 1.25 MCG/ACT Spiriva Respimat 1.25 MCG/ACT 12/29/2019 12:00:00 AM EST 2.0 {puffs} active Spiriva Resp imat 1.25 MCG/ACT eCW1 ([facility]) 20 mg 12/29/2019 12:00:00 AM EST tablet 90 TAKE ONE TABLET BY MOUTH THREE TIMES A DAY TAKE ONE TABLET BY MOUTH THREE TIMES A DAY SOLD: 12/30/2019 [facility] Spiriva Respimat 1.25 MCG/ACT Spiriva Respimat 1.25 MCG/ACT 12/29/2019 12:00:00 AM EST 2.0 {puffs} active Spiriva Resp imat 1.25 MCG/ACT eCW1 ([facility]) Spiriva Respimat 1.25 MCG/ACT Spiriva Respimat 1.25 MCG/ACT 12/29/2019 12:00:00 AM EST 2.0 {puffs} active Spiriva Resp imat 1.25 MCG/ACT eCW1 ([facility]) Spiriva Respimat 1.25 MCG/ACT Spiriva Respimat 1.25 MCG/ACT 12/29/2019 12:00:00 AM EST 2.0 {puffs} suspended Spiriva R espimat 1.25 MCG/ACT eCW1 ([facility]) Spiriva Respimat 1.25 MCG/ACT Spiriva Respimat 1.25 MCG/ACT 12/29/2019 12:00:00 AM EST 2.0 {puffs} active Spiriva Resp imat 1.25 MCG/ACT eCW1 ([facility]) Spiriva Respimat 1.25 MCG/ACT Spiriva Respimat 1.25 MCG/ACT 12/29/2019 12:00:00 AM EST 2.0 {puffs} active Spiriva Resp imat 1.25 MCG/ACT eCW1 ([facility]) 2 mg 12/25/2019 12:00:00 AM EST tablet 30 TAKE ONE TABLET BY MOUTH THREE TIMES A DAY NEEDED FOR ANXIETY MAXIMUM DAILY DOSE = 3 TABLETS TAKE ONE TABLET BY MOUTH THREE TIMES A DAY NEEDED FOR ANXIETY MAXIMUM DAILY DOSE = 3 TABLETS SOLD: 12/25/2019 [facility] 20 mg 12/23/2019 12:00:00 AM EST tablet 5 TAKE ONE TABLET BY MOUTH EVERY DAY TAKE ONE TABLET BY MOUTH EVERY DAY SOLD: 12/24/2019 [facility] 20-100 mcg/actuation 12/23/2019 12:00:00 AM EST mist 4 INHALE ONE PUFF BY MOUTH FOUR TIMES A DAY INHALE ONE PUFF BY MOUTH FOUR TIMES A DAY SOLD: 12/24/2019 [facility] Omeprazole 40 MG Delayed Release Oral Capsule Omeprazole 40 MG 12/22/2019 12:00:00 AM EST active Omeprazo le 40 MG eCW1 ([facility]) Acetaminophen 325 MG / Oxycodone Hydroch loride 10 MG Oral Tablet [Percocet] Percocet 10-325 MG Percocet 10-325 MG 12/22/2019 12:00:00 AM EST 1.0 {tablet_as_needed} active Percocet 10-3 25 MG eCW1 ([facility]) Acetaminophen 325 MG / Oxycodone Hydroch loride 10 MG Oral Tablet [Percocet] Percocet 10-325 MG Percocet 10-325 MG 12/22/2019 12:00:00 AM EST 1.0 {tablet_as_needed} active Percocet 10-3 25 MG eCW1 ([facility]) Sucralfate 1000 MG Oral Tablet Sucralfate 1 GM Sucralfate 1 GM 12/22/2019 12:00:00 AM EST 1.0 {tablet_on_an_empty_stomach} active Sucralfate 1 GM eCW1 ([facility]) Sucralfate 1000 MG Oral Tablet Sucralfate 1 GM Sucralfate 1 GM 12/22/2019 12:00:00 AM EST 1.0 {tablet_on_an_empty_stomach} active Sucralfate 1 GM eCW1 ([facility]) Omeprazole 40 MG Delayed Release Oral Capsule Omeprazole 40 MG 12/22/2019 12:00:00 AM EST active Omeprazo le 40 MG eCW1 ([facility]) Omeprazole 40 MG Delayed Release Oral Capsule Omeprazole 40 MG 12/22/2019 12:00:00 AM EST active Omeprazo le 40 MG eCW1 ([facility]) Sucralfate 1000 MG Oral Tablet Sucralfate 1 GM Sucralfate 1 GM 12/22/2019 12:00:00 AM EST 1.0 {tablet_on_an_empty_stomach} active Sucralfate 1 GM eCW1 ([facility]) Sucralfate 1000 MG Oral Tablet Sucralfate 1 GM Sucralfate 1 GM 12/22/2019 12:00:00 AM EST 1.0 {tablet_on_an_empty_stomach} active Sucralfate 1 GM eCW1 ([facility]) Omeprazole 40 MG Delayed Release Oral Capsule Omeprazole 40 MG 12/22/2019 12:00:00 AM EST active Omeprazo le 40 MG eCW1 ([facility]) Acetaminophen 325 MG / Oxycodone Hydroch loride 10 MG Oral Tablet [Percocet] Percocet 10-325 MG Percocet 10-325 MG 12/22/2019 12:00:00 AM EST 1.0 {tablet_as_needed} active Percocet 10-3 25 MG eCW1 ([facility]) Omeprazole 40 MG Delayed Release Oral Capsule Omeprazole 40 MG 12/22/2019 12:00:00 AM EST active Omeprazo le 40 MG eCW1 ([facility]) Sucralfate 1000 MG Oral Tablet Sucralfate 1 GM Sucralfate 1 GM 12/22/2019 12:00:00 AM EST 1.0 {tablet_on_an_empty_stomach} active Sucralfate 1 GM eCW1 ([facility]) Acetaminophen 325 MG / Oxycodone Hydroch loride 10 MG Oral Tablet [Percocet] Percocet 10-325 MG Percocet 10-325 MG 12/22/2019 12:00:00 AM EST 1.0 {tablet_as_needed} active Percocet 10-3 25 MG [facility] ([facility]) Sucralfate 1000 MG Oral Tablet Sucralfate 1 GM Sucralfate 1 GM 12/22/2019 12:00:00 AM EST 1.0 {tablet_on_an_empty_stomach} active Sucralfate 1 GM eCW1 ([facility]) 1 gram 12/22/2019 12:00:00 AM EST tablet 90 TAKE 1 TABLET BY MOUTH ON AN EMPTY STOMACH BEFORE EACH MEAL TAKE 1 TABLET BY MOUTH ON AN EMPTY STOMA CH BEFORE EACH MEAL SOLD: 12/22/2019 [facility] Sucralfate 1000 MG Oral Tablet Sucralfate 1 GM Sucralfate 1 GM 12/22/2019 12:00:00 AM EST 1.0 {tablet_on_an_empty_stomach} active Sucralfate 1 GM W1 ([facility]) Sucralfate 1000 MG Oral Tablet Sucralfate 1 GM Sucralfate 1 GM 12/22/2019 12:00:00 AM EST 1.0 {tablet_on_an_empty_stomach} active Sucralfate 1 GM eCW1 ([facility]) Omeprazole 40 MG Delayed Release Oral Capsule Omeprazole 40 MG 12/22/2019 12:00:00 AM EST active Omeprazo le 40 MG eCW1 ([facility]) Sucralfate 1000 MG Oral Tablet Sucralfate 1 GM Sucralfate 1 GM 12/22/2019 12:00:00 AM EST 1.0 {tablet_on_an_empty_stomach} active Sucralfate 1 GM eCW1 ([facility]) Sucralfate 1000 MG Oral Tablet Sucralfate 1 GM Sucralfate 1 GM 12/22/2019 12:00:00 AM EST 1.0 {tablet_on_an_empty_stomach} active Sucralfate 1 GM eCW1 ([facility]) Acetaminophen 325 MG / Oxycodone Hydroch loride 10 MG Oral Tablet [Percocet] Percocet 10-325 MG Percocet 10-325 MG 12/22/2019 12:00:00 AM EST 1.0 {tablet_as_needed} active Percocet 10-3 25 MG eCW1 ([facility]) Omeprazole 40 MG Delayed Release Oral Capsule Omeprazole 40 MG 12/22/2019 12:00:00 AM EST active Omeprazo le 40 MG eCW1 ([facility]) Omeprazole 40 MG Delayed Release Oral Capsule Omeprazole 40 MG 12/22/2019 12:00:00 AM EST active Omeprazo le 40 MG eCW1 ([facility]) Acetaminophen 325 MG / Oxycodone Hydroch loride 10 MG Oral Tablet [Percocet] Percocet 10-325 MG Percocet 10-325 MG 12/22/2019 12:00:00 AM EST 1.0 {tablet_as_needed} active Percocet 10-3 25 MG eCW1 ([facility]) Sucralfate 1000 MG Oral Tablet Sucralfate 1 GM Sucralfate 1 GM 12/22/2019 12:00:00 AM EST 1.0 {tablet_on_an_empty_stomach} active Sucralfate 1 GM eCW1 ([facility]) Sucralfate 1000 MG Oral Tablet Sucralfate 1 GM Sucralfate 1 GM 12/22/2019 12:00:00 AM EST 1.0 {tablet_on_an_empty_stomach} active Sucralfate 1 GM eCW1 ([facility]) Omeprazole 40 MG Delayed Release Oral Capsule Omeprazole 40 MG 12/22/2019 12:00:00 AM EST active Omeprazo le 40 MG eCW1 ([facility]) Omeprazole 40 MG Delayed Release Oral Capsule Omeprazole 40 MG 12/22/2019 12:00:00 AM EST active Omeprazo le 40 MG eCW1 ([facility]) Omeprazole 40 MG Delayed Release Oral Capsule Omeprazole 40 MG 12/22/2019 12:00:00 AM EST active Omeprazo le 40 MG eCW1 ([facility]) Sucralfate 1000 MG Oral Tablet Sucralfate 1 GM Sucralfate 1 GM 12/22/2019 12:00:00 AM EST 1.0 {tablet_on_an_empty_stomach} active Sucralfate 1 GM eCW1 ([facility]) Sucralfate 1000 MG Oral Tablet Sucralfate 1 GM Sucralfate 1 GM 12/22/2019 12:00:00 AM EST 1.0 {tablet_on_an_empty_stomach} active Sucralfate 1 GM eCW1 ([facility]) Omeprazole 40 MG Delayed Release Oral Capsule Omeprazole 40 MG 12/22/2019 12:00:00 AM EST active Omeprazo le 40 MG eCW1 ([facility]) Acetaminophen 325 MG / Oxycodone Hydroch loride 10 MG Oral Tablet [Percocet] Percocet 10-325 MG Percocet 10-325 MG 12/22/2019 12:00:00 AM EST 1.0 {tablet_as_needed} active Percocet 10-3 25 MG eCW1 ([facility]) Sucralfate 1000 MG Oral Tablet Sucralfate 1 GM Sucralfate 1 GM 12/22/2019 12:00:00 AM EST 1.0 {tablet_on_an_empty_stomach} active Sucralfate 1 GM eCW1 ([facility]) Omeprazole 40 MG Delayed Release Oral Capsule Omeprazole 40 MG 12/22/2019 12:00:00 AM EST active Omeprazo le 40 MG eCW1 ([facility]) Omeprazole 40 MG Delayed Release Oral Capsule Omeprazole 40 MG 12/22/2019 12:00:00 AM EST active Omeprazo le 40 MG eCW1 ([facility]) Acetaminophen 325 MG / Oxycodone Hydroch loride 10 MG Oral Tablet [Percocet] Percocet 10-325 MG Percocet 10-325 MG 12/22/2019 12:00:00 AM EST 1.0 {tablet_as_needed} active Percocet 10-3 25 MG eCW1 ([facility]) Sucralfate 1000 MG Oral Tablet Sucralfate 1 GM Sucralfate 1 GM 12/22/2019 12:00:00 AM EST 1.0 {tablet_on_an_empty_stomach} active Sucralfate 1 GM eCW1 ([facility]) Sucralfate 1000 MG Oral Tablet Sucralfate 1 GM Sucralfate 1 GM 12/22/2019 12:00:00 AM EST 1.0 {tablet_on_an_empty_stomach} active Sucralfate 1 GM eCW1 ([facility]) Sucralfate 1000 MG Oral Tablet Sucralfate 1 GM Sucralfate 1 GM 12/22/2019 12:00:00 AM EST 1.0 {tablet_on_an_empty_stomach} active Sucralfate 1 GM eCW1 ([facility]) Omeprazole 40 MG Delayed Release Oral Capsule Omeprazole 40 MG 12/22/2019 12:00:00 AM EST active Omeprazo le 40 MG [facility] ([facility]) Omeprazole 40 MG Delayed Release Oral Capsule Omeprazole 40 MG 12/22/2019 12:00:00 AM EST active Omeprazo le 40 MG [facility] ([facility]) Omeprazole 40 MG Delayed Release Oral Capsule Omeprazole 40 MG 12/22/2019 12:00:00 AM EST active Omeprazo le 40 MG [facility] ([facility]) Sucralfate 1000 MG Oral Tablet Sucralfate 1 GM Sucralfate 1 12/22/2019 12:00:00 AM EST 1.0 {tablet_on_an_empty_stomach} active Sucralfate 1 GM eCW1 ([facility]) Omeprazole 40 MG Delayed Release Oral Capsule Omeprazole 40 MG 12/22/2019 12:00:00 AM EST active Omeprazo le 40 MG W1 ([facility]) Sucralfate 1000 MG Oral Tablet Sucralfate 1 GM Sucralfate 1 GM 12/22/2019 12:00:00 AM EST 1.0 {tablet_on_an_empty_stomach} active Sucralfate 1 GM eCW1 ([facility]) Omeprazole 40 MG Delayed Release Oral Capsule Omeprazole 40 MG 12/22/2019 12:00:00 AM EST active Omeprazo le 40 MG eCW1 ([facility]) Omeprazole 40 MG Delayed Release Oral Capsule Omeprazole 40 MG 12/22/2019 12:00:00 AM EST active Omeprazo le 40 MG eCW1 ([facility]) Acetaminophen 325 MG / Oxycodone Hydroch loride 10 MG Oral Tablet [Percocet] Percocet 10-325 MG Percocet 10-325 MG 12/22/2019 12:00:00 AM EST 1.0 {tablet_as_needed} active Percocet 10-3 25 MG eCW1 ([facility]) Sucralfate 1000 MG Oral Tablet Sucralfate 1 GM Sucralfate 1 GM 12/22/2019 12:00:00 AM EST 1.0 {tablet_on_an_empty_stomach} active Sucralfate 1 GM eCW1 ([facility]) Omeprazole 40 MG Delayed Release Oral Capsule Omeprazole 40 MG 12/22/2019 12:00:00 AM EST active Omeprazo le 40 MG eCW1 ([facility]) Sucralfate 1000 MG Oral Tablet Sucralfate 1 GM Sucralfate 1 GM 12/22/2019 12:00:00 AM EST 1.0 {tablet_on_an_empty_stomach} active Sucralfate 1 GM eCW1 ([facility]) Omeprazole 40 MG Delayed Release Oral Capsule Omeprazole 40 MG 12/22/2019 12:00:00 AM EST active Omeprazo le 40 MG eCW1 ([facility]) Omeprazole 40 MG Delayed Release Oral Capsule Omeprazole 40 MG 12/22/2019 12:00:00 AM EST active Omeprazo le 40 MG eCW1 ([facility]) Acetaminophen 325 MG / Oxycodone Hydroch loride 10 MG Oral Tablet [Percocet] Percocet 10-325 MG Percocet 10-325 MG 12/22/2019 12:00:00 AM EST 1.0 {tablet_as_needed} active Percocet 10-3 25 MG eCW1 ([facility]) Sucralfate 1000 MG Oral Tablet Sucralfate 1 GM Sucralfate 1 GM 12/22/2019 12:00:00 AM EST 1.0 {tablet_on_an_empty_stomach} active Sucralfate 1 GM eCW1 ([facility]) Sucralfate 1000 MG Oral Tablet Sucralfate 1 GM Sucralfate 1 GM 12/22/2019 12:00:00 AM EST 1.0 {tablet_on_an_empty_stomach} active Sucralfate 1 GM eCW1 ([facility]) Sucralfate 1000 MG Oral Tablet Sucralfate 1 GM Sucralfate 1 GM 12/22/2019 12:00:00 AM EST 1.0 {tablet_on_an_empty_stomach} active Sucralfate 1 GM eCW1 ([facility]) Sucralfate 1000 MG Oral Tablet Sucralfate 1 GM Sucralfate 1 GM 12/22/2019 12:00:00 AM EST 1.0 {tablet_on_an_empty_stomach} active Sucralfate 1 GM eCW1 ([facility]) Acetaminophen 325 MG / Oxycodone Hydroch loride 10 MG Oral Tablet [Percocet] Percocet 10-325 MG Percocet 10-325 MG 12/22/2019 12:00:00 AM EST 1.0 {tablet_as_needed} active Percocet 10-3 25 MG [facility] ([facility]) Omeprazole 40 MG Delayed Release Oral Capsule Omeprazole 40 MG 12/22/2019 12:00:00 AM EST active Omeprazo le 40 MG eCW1 ([facility]) Omeprazole 40 MG Delayed Release Oral Capsule Omeprazole 40 MG 12/22/2019 12:00:00 AM EST active Omeprazo le 40 MG eCW1 ([facility]) Sucralfate 1000 MG Oral Tablet Sucralfate 1 GM Sucralfate 1 GM 12/22/2019 12:00:00 AM EST 1.0 {tablet_on_an_empty_stomach} active Sucralfate 1 GM eCW1 ([facility]) Sucralfate 1000 MG Oral Tablet Sucralfate 1 GM Sucralfate 1 GM 12/22/2019 12:00:00 AM EST 1.0 {tablet_on_an_empty_stomach} active Sucralfate 1 GM eCW1 ([facility]) Sucralfate 1000 MG Oral Tablet Sucralfate 1 GM Sucralfate 1 GM 12/22/2019 12:00:00 AM EST 1.0 {tablet_on_an_empty_stomach} active Sucralfate 1 GM eCW1 ([facility]) Sucralfate 1000 MG Oral Tablet Sucralfate 1 GM Sucralfate 1 GM 12/22/2019 12:00:00 AM EST 1.0 {tablet_on_an_empty_stomach} active Sucralfate 1 GM eCW1 ([facility]) Omeprazole 40 MG Delayed Release Oral Capsule Omeprazole 40 MG 12/22/2019 12:00:00 AM EST active Omeprazo le 40 MG eCW1 ([facility]) Sucralfate 1000 MG Oral Tablet Sucralfate 1 GM Sucralfate 1 GM 12/22/2019 12:00:00 AM EST 1.0 {tablet_on_an_empty_stomach} active Sucralfate 1 GM eCW1 ([facility]) Acetaminophen 325 MG / Oxycodone Hydroch loride 10 MG Oral Tablet [Percocet] Percocet 10-325 MG Percocet 10-325 MG 12/22/2019 12:00:00 AM EST 1.0 {tablet_as_needed} active Percocet 10-3 25 MG eCW1 ([facility]) Acetaminophen 325 MG / Oxycodone Hydroch loride 10 MG Oral Tablet [Percocet] Percocet 10-325 MG Percocet 10-325 MG 12/22/2019 12:00:00 AM EST 1.0 {tablet_as_needed} active Percocet 10-3 25 MG eCW1 ([facility]) Acetaminophen 325 MG / Oxycodone Hydroch loride 10 MG Oral Tablet [Percocet] Percocet 10-325 MG Percocet 10-325 MG 12/22/2019 12:00:00 AM EST 1.0 {tablet_as_needed} active Percocet 10-3 25 MG eCW1 ([facility]) Acetaminophen 325 MG / Oxycodone Hydroch loride 10 MG Oral Tablet [Percocet] Percocet 10-325 MG Percocet 10-325 MG 12/22/2019 12:00:00 AM EST 1.0 {tablet_as_needed} active Percocet 10-3 25 MG eCW1 ([facility]) Omeprazole 40 MG Delayed Release Oral Capsule Omeprazole 40 MG 12/22/2019 12:00:00 AM EST active Omeprazo le 40 MG eCW1 ([facility]) Sucralfate 1000 MG Oral Tablet Sucralfate 1 GM Sucralfate 1 GM 12/22/2019 12:00:00 AM EST 1.0 {tablet_on_an_empty_stomach} active Sucralfate 1 GM eCW1 ([facility]) Omeprazole 40 MG Delayed Release Oral Capsule Omeprazole 40 MG 12/22/2019 12:00:00 AM EST active Omeprazo le 40 MG eCW1 ([facility]) Sucralfate 1000 MG Oral Tablet Sucralfate 1 GM Sucralfate 1 GM 12/22/2019 12:00:00 AM EST 1.0 {tablet_on_an_empty_stomach} active Sucralfate 1 GM eCW1 ([facility]) Sucralfate 1000 MG Oral Tablet Sucralfate 1 GM Sucralfate 1 GM 12/22/2019 12:00:00 AM EST 1.0 {tablet_on_an_empty_stomach} active Sucralfate 1 GM eCW1 ([facility]) Acetaminophen 325 MG / Oxycodone Hydroch loride 10 MG Oral Tablet [Percocet] Percocet 10-325 MG Percocet 10-325 MG 12/22/2019 12:00:00 AM EST 1.0 {tablet_as_needed} active Percocet 10-3 25 MG eCW1 (Formerly [facility]) Acetaminophen 325 MG / Oxycodone Hydroch loride 10 MG Oral Tablet [Percocet] Percocet 10-325 MG Percocet 10-325 MG 12/22/2019 12:00:00 AM EST 1.0 {tablet_as_needed} active Percocet 10-3 25 MG eCW1 (Formerly [facility]) Sucralfate 1000 MG Oral Tablet Sucralfate 1 GM Sucralfate 1 GM 12/22/2019 12:00:00 AM EST 1.0 {tablet_on_an_empty_stomach} active Sucralfate 1 GM eCW1 (Formerly [facility]) Sucralfate 1000 MG Oral Tablet Sucralfate 1 GM Sucralfate 1 GM 12/22/2019 12:00:00 AM EST 1.0 {tablet_on_an_empty_stomach} active Sucralfate 1 GM eCW1 (Formerly [facility]) Omeprazole 40 MG Delayed Release Oral Capsule Omeprazole 40 MG 12/22/2019 12:00:00 AM EST active Omeprazo le 40 MG eCW1 (Formerly [facility]) Omeprazole 40 MG Delayed Release Oral Capsule Omeprazole 40 MG 12/22/2019 12:00:00 AM EST active Omeprazo le 40 MG eCW1 (Formerly [facility]) Acetaminophen 325 MG / Oxycodone Hydroch loride 10 MG Oral Tablet [Percocet] Percocet 10-325 MG Percocet 10-325 MG 12/22/2019 12:00:00 AM EST 1.0 {tablet_as_needed} active Percocet 10-3 25 MG eCW1 (Formerly [facility]) Acetaminophen 325 MG / Oxycodone Hydroch loride 10 MG Oral Tablet [Percocet] Percocet 10-325 MG Percocet 10-325 MG 12/22/2019 12:00:00 AM EST 1.0 {tablet_as_needed} active Percocet 10-3 25 MG eCW1 (Formerly [facility]) Omeprazole 40 MG Delayed Release Oral Capsule Omeprazole 40 MG 12/22/2019 12:00:00 AM EST active Omeprazo le 40 MG eCW1 (Formerly [facility]) 40 mg 12/22/2019 12:00:00 AM EST capsule,delayed release (DR/EC) 30 TAKE 1 CAPSULE BY MOUTH 30 MINS. BEFORE MORNING MEAL TAKE 1 CAPSULE BY MOUTH 30 MINS. BEFORE MORNING MEAL SOLD: 12/22/2019 Devonte Hoffmann Omeprazole 40 MG Delayed Release Oral Capsule Omeprazole 40 MG 12/22/2019 12:00:00 AM EST active Omeprazo le 40 MG eCW1 (Formerly [facility]) Sucralfate 1000 MG Oral Tablet Sucralfate 1 GM Sucralfate 1 GM 12/22/2019 12:00:00 AM EST 1.0 {tablet_on_an_empty_stomach} active Sucralfate 1 GM eCW1 (Formerly [facility]) Omeprazole 40 MG Delayed Release Oral Capsule Omeprazole 40 MG 12/22/2019 12:00:00 AM EST active Omeprazo le 40 MG eCW1 (Formerly [facility]) Acetaminophen 325 MG / Oxycodone Hydroch loride 10 MG Oral Tablet [Percocet] Percocet 10-325 MG Percocet 10-325 MG 12/22/2019 12:00:00 AM EST 1.0 {tablet_as_needed} active Percocet 10-3 25 MG eCW1 (Formerly [facility]) Sucralfate 1000 MG Oral Tablet Sucralfate 1 GM Sucralfate 1 GM 12/22/2019 12:00:00 AM EST 1.0 {tablet_on_an_empty_stomach} active Sucralfate 1 GM eCW1 (Formerly [facility]) Sucralfate 1000 MG Oral Tablet Sucralfate 1 GM Sucralfate 1 GM 12/22/2019 12:00:00 AM EST 1.0 {tablet_on_an_empty_stomach} active Sucralfate 1 GM eCW1 (Formerly [facility]) Omeprazole 40 MG Delayed Release Oral Capsule Omeprazole 40 MG 12/22/2019 12:00:00 AM EST active Omeprazo le 40 MG eCW1 (Formerly [facility]) Omeprazole 40 MG Delayed Release Oral Capsule Omeprazole 40 MG 12/22/2019 12:00:00 AM EST active Omeprazo le 40 MG eCW1 (Formerly [facility]) Omeprazole 40 MG Delayed Release Oral Capsule Omeprazole 40 MG 12/22/2019 12:00:00 AM EST active Omeprazo le 40 MG eCW1 (Formerly [facility]) Acetaminophen 325 MG / Oxycodone Hydroch loride 10 MG Oral Tablet [Percocet] Percocet 10-325 MG Percocet 10-325 MG 12/22/2019 12:00:00 AM EST 1.0 {tablet_as_needed} active Percocet 10-3 25 MG eCW1 (Formerly [facility]) Acetaminophen 325 MG / Oxycodone Hydroch loride 10 MG Oral Tablet [Percocet] Percocet 10-325 MG Percocet 10-325 MG 12/22/2019 12:00:00 AM EST 1.0 {tablet_as_needed} active Percocet 10-3 25 MG eCW1 (Formerly [facility]) Acetaminophen 325 MG / Oxycodone Hydroch loride 10 MG Oral Tablet [Percocet] Percocet 10-325 MG Percocet 10-325 MG 12/22/2019 12:00:00 AM EST 1.0 {tablet_as_needed} active Percocet 10-3 25 MG eCW1 (Formerly [facility]) Omeprazole 40 MG Delayed Release Oral Capsule Omeprazole 40 MG 12/22/2019 12:00:00 AM EST active Omeprazo le 40 MG eCW1 (Formerly [facility]) Acetaminophen 325 MG / Oxycodone Hydroch loride 10 MG Oral Tablet [Percocet] Percocet 10-325 MG Percocet 10-325 MG 12/22/2019 12:00:00 AM EST 1.0 {tablet_as_needed} active Percocet 10-3 25 MG eCW1 (Formerly [facility]) Sucralfate 1000 MG Oral Tablet Sucralfate 1 GM Sucralfate 1 GM 12/22/2019 12:00:00 AM EST 1.0 {tablet_on_an_empty_stomach} active Sucralfate 1 GM eCW1 (Formerly [facility]) Sucralfate 1000 MG Oral Tablet Sucralfate 1 GM Sucralfate 1 GM 12/22/2019 12:00:00 AM EST 1.0 {tablet_on_an_empty_stomach} active Sucralfate 1 GM eCW1 (Formerly [facility]) Omeprazole 40 MG Delayed Release Oral Capsule Omeprazole 40 MG 12/22/2019 12:00:00 AM EST active Omeprazo le 40 MG eCW1 ([facility]) Omeprazole 40 MG Delayed Release Oral Capsule Omeprazole 40 MG 12/22/2019 12:00:00 AM EST active Omeprazo le 40 MG eCW1 ([facility]) Omeprazole 40 MG Delayed Release Oral Capsule Omeprazole 40 MG 12/22/2019 12:00:00 AM EST active Omeprazo le 40 MG eCW1 ([facility]) Omeprazole 40 MG Delayed Release Oral Capsule Omeprazole 40 MG 12/22/2019 12:00:00 AM EST active Omeprazo le 40 MG eCW1 ([facility]) Acetaminophen 325 MG / Oxycodone Hydroch loride 10 MG Oral Tablet [Percocet] Percocet 10-325 MG Percocet 10-325 MG 12/22/2019 12:00:00 AM EST 1.0 {tablet_as_needed} active Percocet 10-3 25 MG eCW1 ([facility]) Acetaminophen 325 MG / Oxycodone Hydroch loride 10 MG Oral Tablet [Percocet] Percocet 10-325 MG Percocet 10-325 MG 12/22/2019 12:00:00 AM EST 1.0 {tablet_as_needed} active Percocet 10-3 25 MG eCW1 ([facility]) Sucralfate 1000 MG Oral Tablet Sucralfate 1 GM Sucralfate 1 GM 12/22/2019 12:00:00 AM EST 1.0 {tablet_on_an_empty_stomach} active Sucralfate 1 GM eCW1 ([facility]) Sucralfate 1000 MG Oral Tablet Sucralfate 1 GM Sucralfate 1 GM 12/22/2019 12:00:00 AM EST 1.0 {tablet_on_an_empty_stomach} active Sucralfate 1 GM eCW1 (Former[facility]) Omeprazole 40 MG Delayed Release Oral Capsule Omeprazole 40 MG 12/22/2019 12:00:00 AM EST active Omeprazo le 40 MG eCW1 ([facility]) Acetaminophen 325 MG / Oxycodone Hydroch loride 10 MG Oral Tablet [Percocet] Percocet 10-325 MG Percocet 10-325 MG 12/22/2019 12:00:00 AM EST 1.0 {tablet_as_needed} active Percocet 10-3 25 MG eCW1 ([facility]) Acetaminophen 325 MG / Oxycodone Hydroch loride 10 MG Oral Tablet [Percocet] Percocet 10-325 MG Percocet 10-325 MG 12/22/2019 12:00:00 AM EST 1.0 {tablet_as_needed} active Percocet 10-3 25 MG eCW1 ([facility]) Sucralfate 1000 MG Oral Tablet Sucralfate 1 GM Sucralfate 1 GM 12/22/2019 12:00:00 AM EST 1.0 {tablet_on_an_empty_stomach} active Sucralfate 1 GM eCW1 ([facility]) Omeprazole 40 MG Delayed Release Oral Capsule Omeprazole 40 MG 12/22/2019 12:00:00 AM EST active Omeprazo le 40 MG eCW1 ([facility]) Sucralfate 1000 MG Oral Tablet Sucralfate 1 GM Sucralfate 1 12/22/2019 12:00:00 AM EST 1.0 {tablet_on_an_empty_stomach} active Sucralfate 1 GM W1 ([facility]ly [facility]) Sucralfate 1000 MG Oral Tablet Sucralfate 1 GM Sucralfate 1 12/22/2019 12:00:00 AM EST 1.0 {tablet_on_an_empty_stomach} active Sucralfate 1 GM eCW1 ([facility]) Omeprazole 40 MG Delayed Release Oral Capsule Omeprazole 40 MG 12/22/2019 12:00:00 AM EST active Omeprazo le 40 MG W1 ([facility]) Omeprazole 40 MG Delayed Release Oral Capsule Omeprazole 40 MG 12/22/2019 12:00:00 AM EST active Omeprazo le 40 MG eCW1 ([facility]) Sucralfate 1000 MG Oral Tablet Sucralfate 1 GM Sucralfate 1 12/22/2019 12:00:00 AM EST 1.0 {tablet_on_an_empty_stomach} active Sucralfate 1 GM eCW1 ([facility]) Sucralfate 1000 MG Oral Tablet Sucralfate 1 GM Sucralfate 1 GM 12/22/2019 12:00:00 AM EST 1.0 {tablet_on_an_empty_stomach} active Sucralfate 1 GM eCW1 ([facility]) Omeprazole 40 MG Delayed Release Oral Capsule Omeprazole 40 MG 12/22/2019 12:00:00 AM EST active Omeprazo le 40 MG eCW1 ([facility]) Acetaminophen 325 MG / Oxycodone Hydroch loride 10 MG Oral Tablet [Percocet] Percocet 10-325 MG Percocet 10-325 MG 12/22/2019 12:00:00 AM EST 1.0 {tablet_as_needed} active Percocet 10-3 25 MG eCW1 ([facility]) Omeprazole 40 MG Delayed Release Oral Capsule Omeprazole 40 MG 12/22/2019 12:00:00 AM EST active Omeprazo le 40 MG eCW1 ([facility]) Omeprazole 40 MG Delayed Release Oral Capsule Omeprazole 40 MG 12/22/2019 12:00:00 AM EST active Omeprazo le 40 MG eCW1 ([facility]) Acetaminophen 325 MG / Oxycodone Hydroch loride 10 MG Oral Tablet [Percocet] Percocet 10-325 MG Percocet 10-325 MG 12/22/2019 12:00:00 AM EST 1.0 {tablet_as_needed} active Percocet 10-3 25 MG eCW1 ([facility]) Omeprazole 40 MG Delayed Release Oral Capsule Omeprazole 40 MG 12/22/2019 12:00:00 AM EST active Omeprazo le 40 MG eCW1 ([facility]) Omeprazole 40 MG Delayed Release Oral Capsule Omeprazole 40 MG 12/22/2019 12:00:00 AM EST active Omeprazo le 40 MG eCW1 ([facility]) Acetaminophen 325 MG / Oxycodone Hydroch loride 10 MG Oral Tablet [Percocet] Percocet 10-325 MG Percocet 10-325 MG 12/22/2019 12:00:00 AM EST 1.0 {tablet_as_needed} active Percocet 10-3 25 MG eCW1 ([facility]) Acetaminophen 325 MG / Oxycodone Hydroch loride 10 MG Oral Tablet [Percocet] Percocet 10-325 MG Percocet 10-325 MG 12/22/2019 12:00:00 AM EST 1.0 {tablet_as_needed} active Percocet 10-3 25 MG eCW1 ([facility]) Sucralfate 1000 MG Oral Tablet Sucralfate 1 GM Sucralfate 1 GM 12/22/2019 12:00:00 AM EST 1.0 {tablet_on_an_empty_stomach} active Sucralfate 1 GM eCW1 ([facility]) Omeprazole 40 MG Delayed Release Oral Capsule Omeprazole 40 MG 12/22/2019 12:00:00 AM EST active Omeprazo le 40 MG eCW1 ([facility]) 10-325 mg 12/22/2019 12:00:00 AM EST tablet 90 TAKE ONE TABLET BY MOUTH EVERY 6 HOURS MAXIMUM DAILY DOSE = 4 TABLETS TAKE ONE TABLET BY MOUTH EVERY 6 HOURS MAXIMUM DAILY DOSE = 4 TABLETS SOLD: 12/22/2019 [facility] Omeprazole 40 MG Delayed Release Oral Capsule Omeprazole 40 MG 12/22/2019 12:00:00 AM EST active Omeprazo le 40 MG eCW1 ([facility]) Acetaminophen 325 MG / Oxycodone Hydroch loride 10 MG Oral Tablet [Percocet] Percocet 10-325 MG Percocet 10-325 MG 12/22/2019 12:00:00 AM EST 1.0 {tablet_as_needed} active Percocet 10-3 25 MG eCW1 ([facility]) Omeprazole 40 MG Delayed Release Oral Capsule Omeprazole 40 MG 12/22/2019 12:00:00 AM EST active Omeprazo le 40 MG eCW1 ([facility]) Acetaminophen 325 MG / Oxycodone Hydroch loride 10 MG Oral Tablet [Percocet] Percocet 10-325 MG Percocet 10-325 MG 12/22/2019 12:00:00 AM EST 1.0 {tablet_as_needed} active Percocet 10-3 25 MG eCW1 ([facility]) Sucralfate 1000 MG Oral Tablet Sucralfate 1 GM Sucralfate 1 GM 12/22/2019 12:00:00 AM EST 1.0 {tablet_on_an_empty_stomach} active Sucralfate 1 GM eCW1 ([facility]) Acetaminophen 325 MG / Oxycodone Hydroch loride 10 MG Oral Tablet [Percocet] Percocet 10-325 MG Percocet 10-325 MG 12/22/2019 12:00:00 AM EST 1.0 {tablet_as_needed} active Percocet 10-3 25 MG eCW1 ([facility]) Sucralfate 1000 MG Oral Tablet Sucralfate 1 GM Sucralfate 1 GM 12/22/2019 12:00:00 AM EST 1.0 {tablet_on_an_empty_stomach} active Sucralfate 1 GM eCW1 ([facility]) Sucralfate 1000 MG Oral Tablet Sucralfate 1 GM Sucralfate 1 GM 12/22/2019 12:00:00 AM EST 1.0 {tablet_on_an_empty_stomach} active Sucralfate 1 GM eCW1 ([facility]) Sucralfate 1000 MG Oral Tablet Sucralfate 1 GM Sucralfate 1 GM 12/22/2019 12:00:00 AM EST 1.0 {tablet_on_an_empty_stomach} active Sucralfate 1 GM eCW1 ([facility]) Amlodipine 5 MG / valsartan 160 [...] active Percocet 10-3 25 MG eCW1 ([facility]) Acetaminophen 325 MG / Oxycodone Hydroch loride 10 MG Oral Tablet [Percocet] Percocet 10-325 MG Percocet 10-325 MG 11/24/2019 12:00:00 AM EDT 1.0 {tablet_as_needed} active Percocet 10-3 25 MG eCW1 ([facility]) Acetaminophen 325 MG / Oxycodone Hydroch loride 10 MG Oral Tablet [Percocet] Percocet 10-325 MG Percocet 10-325 MG 11/24/2019 12:00:00 AM EDT 1.0 {tablet_as_needed} active Percocet 10-3 25 MG eCW1 ([facility]) Acetaminophen 325 MG / Oxycodone Hydroch loride 10 MG Oral Tablet [Percocet] Percocet 10-325 MG Percocet 10-325 MG 11/24/2019 12:00:00 AM EDT 1.0 {tablet_as_needed} active Percocet 10-3 25 MG eCW1 ([facility]) Acetaminophen 325 MG / Oxycodone Hydroch loride 10 MG Oral Tablet [Percocet] Percocet 10-325 MG Percocet 10-325 MG 11/24/2019 12:00:00 AM EDT 1.0 {tablet_as_needed} active Percocet 10-3 25 MG eCW1 ([facility]) Acetaminophen 325 MG / Oxycodone Hydroch loride 10 MG Oral Tablet [Percocet] Percocet 10-325 MG Percocet 10-325 MG 11/24/2019 12:00:00 AM EDT 1.0 {tablet_as_needed} active Percocet 10-3 25 MG eCW1 ([facility]) Acetaminophen 325 MG / Oxycodone Hydroch loride 10 MG Oral Tablet [Percocet] Percocet 10-325 MG Percocet 10-325 MG 11/24/2019 12:00:00 AM EDT 1.0 {tablet_as_needed} active Percocet 10-3 25 MG eCW1 ([facility]) Acetaminophen 325 MG / Oxycodone Hydroch loride 10 MG Oral Tablet [Percocet] Percocet 10-325 MG Percocet 10-325 MG 11/24/2019 12:00:00 AM EDT 1.0 {tablet_as_needed} active Percocet 10-3 25 MG eCW1 ([facility]) Acetaminophen 325 MG / Oxycodone Hydroch loride 10 MG Oral Tablet [Percocet] Percocet 10-325 MG Percocet 10-325 MG 11/24/2019 12:00:00 AM EDT 1.0 {tablet_as_needed} active Percocet 10-3 25 MG eCW1 ([facility]) 10-325 mg 11/24/2019 12:00:00 AM EDT [...] active Percocet 10-3 25 MG eCW1 ([facility]) Acetaminophen 325 MG / Oxycodone Hydroch loride 10 MG Oral Tablet [Percocet] Percocet 10-325 MG Percocet 10-325 MG 11/24/2019 12:00:00 AM EDT 1.0 {tablet_as_needed} active Percocet 10-3 25 MG eCW1 ([facility]) Acetaminophen 325 MG / Oxycodone Hydroch loride 10 MG Oral Tablet [Percocet] Percocet 10-325 MG Percocet 10-325 MG 11/24/2019 12:00:00 AM EDT 1.0 {tablet_as_needed} active Percocet 10-3 25 MG eCW1 ([facility]) Acetaminophen 325 MG / Oxycodone Hydroch loride 10 MG Oral Tablet [Percocet] Percocet 10-325 MG Percocet 10-325 MG 11/24/2019 12:00:00 AM EDT 1.0 {tablet_as_needed} active Percocet 10-3 25 MG eCW1 ([facility]) Acetaminophen 325 MG / Oxycodone Hydroch loride 10 MG Oral Tablet [Percocet] Percocet 10-325 MG Percocet 10-325 MG 11/24/2019 12:00:00 AM EDT 1.0 {tablet_as_needed} active Percocet 10-3 25 MG eCW1 ([facility]) Acetaminophen 325 MG / Oxycodone Hydroch loride 10 MG Oral Tablet [Percocet] Percocet 10-325 MG Percocet 10-325 MG 11/24/2019 12:00:00 AM EDT 1.0 {tablet_as_needed} active Percocet 10-3 25 MG eCW1 ([facility]) Acetaminophen 325 MG / Oxycodone Hydroch loride 10 MG Oral Tablet [Percocet] Percocet 10-325 MG Percocet 10-325 MG 11/24/2019 12:00:00 AM EDT 1.0 {tablet_as_needed} active Percocet 10-3 25 MG eCW1 ([facility]) Acetaminophen 325 MG / Oxycodone Hydroch loride 10 MG Oral Tablet [Percocet] Percocet 10-325 MG Percocet 10-325 MG 11/24/2019 12:00:00 AM EDT 1.0 {tablet_as_needed} active Percocet 10-3 25 MG eCW1 ([facility]) Acetaminophen 325 MG / Oxycodone Hydroch loride 10 MG Oral Tablet [Percocet] Percocet 10-325 MG Percocet 10-325 MG 11/24/2019 12:00:00 AM EDT 1.0 {tablet_as_needed} active Percocet 10-3 25 MG eCW1 ([facility]) atorvastatin 40 MG Oral Tablet ATORVASTATIN CALCIUM 11/18/2019 1 2:00:00 AM EDT tablet 90 TAKE ONE TABLET BY MOUTH EVERY D AY TAKE ONE TABLET BY MOUTH EVERY DAY SOLD: 03/16/2020 [facility] atorvastatin 40 MG Oral Tablet ATORVASTATIN CALCIUM [...] EDT active Diazepam 2 MG eCW1 ([facility]) Diazepam 2 MG Oral Tablet Diazepam 2 MG 11/10/2019 12:00:00 AM EDT 1.0 {tablet_as_needed} active Diazepam 2 MG eCW1 ([facility]) Diazepam 2 MG Oral Tablet Diazepam 2 MG 11/10/2019 12:00:00 AM EDT 1.0 {tablet_as_needed} active Diazepam 2 MG eCW1 ([facility]) Diazepam 2 MG Oral Tablet Diazepam 2 MG 11/10/2019 12:00:00 AM EDT active Diazepam 2 MG eCW1 ([facility]) Diazepam 2 MG Oral Tablet Diazepam 2 MG 11/10/2019 12:00:00 AM EDT active Diazepam 2 MG eCW1 ([facility]) Diazepam 2 MG Oral Tablet Diazepam 2 MG 11/10/2019 12:00:00 AM EDT active Diazepam 2 MG eCW1 ([facility]) Diazepam 2 MG Oral Tablet Diazepam 2 MG 11/10/2019 12:00:00 AM EDT active Diazepam 2 MG eCW1 ([facility]) Diazepam 2 MG Oral Tablet Diazepam 2 MG 11/10/2019 12:00:00 AM EDT active Diazepam 2 MG eCW1 ([facility]) Diazepam 2 MG Oral Tablet Diazepam 2 MG 11/10/2019 12:00:00 AM EDT active Diazepam 2 MG eCW1 ([facility]) Diazepam 2 MG Oral Tablet Diazepam 2 MG 11/10/2019 12:00:00 AM EDT 1.0 {tablet_as_needed} active Diazepam 2 MG eCW1 ([facility]) Diazepam 2 MG Oral Tablet Diazepam 2 MG 11/10/2019 12:00:00 AM EDT 1.0 {tablet_as_needed} active Diazepam 2 MG eCW1 ([facility]) Diazepam 2 MG Oral Tablet Diazepam 2 MG 11/10/2019 12:00:00 AM EDT active Diazepam 2 MG eCW1 ([facility]) Diazepam 2 MG Oral Tablet Diazepam 2 MG 11/10/2019 12:00:00 AM EDT 1.0 {tablet_as_needed} active Diazepam 2 MG eCW1 ([facility]) Diazepam 2 MG Oral Tablet Diazepam 2 MG 11/10/2019 12:00:00 AM EDT active Diazepam 2 MG eCW1 ([facility]) Diazepam 2 MG Oral Tablet Diazepam 2 MG 11/10/2019 12:00:00 AM EDT 1.0 {tablet_as_needed} active Diazepam 2 MG eCW1 ([facility]) Diazepam 2 MG Oral Tablet Diazepam 2 MG 11/10/2019 12:00:00 AM EDT active Diazepam 2 MG eCW1 ([facility]) Diazepam 2 MG Oral Tablet Diazepam 2 MG 11/10/2019 12:00:00 AM EDT active Diazepam 2 MG eCW1 ([facility]) Diazepam 2 MG Oral Tablet Diazepam 2 MG 11/10/2019 12:00:00 AM EDT active Diazepam 2 MG eCW1 ([facility]) Diazepam 2 MG Oral Tablet Diazepam 2 MG 11/10/2019 12:00:00 AM EDT 1.0 {tablet_as_needed} active Diazepam 2 MG eCW1 ([facility]) Diazepam 2 MG Oral Tablet Diazepam 2 MG 11/10/2019 12:00:00 AM EDT 1.0 {tablet_as_needed} active Diazepam 2 MG eCW1 ([facility]) Diazepam 2 MG Oral Tablet Diazepam 2 MG 11/10/2019 12:00:00 AM EDT 1.0 {tablet_as_needed} active Diazepam 2 MG eCW1 ([facility]) Diazepam 2 MG Oral Tablet Diazepam 2 MG 11/10/2019 12:00:00 AM EDT active Diazepam 2 MG eCW1 ([facility]) Diazepam 2 MG Oral Tablet Diazepam 2 MG 11/10/2019 12:00:00 AM EDT active Diazepam 2 MG eCW1 ([facility]) Diazepam 2 MG Oral Tablet Diazepam 2 MG 11/10/2019 12:00:00 AM EDT active Diazepam 2 MG eCW1 ([facility]) Diazepam 2 MG Oral Tablet Diazepam 2 MG 11/10/2019 12:00:00 AM EDT active Diazepam 2 MG eCW1 ([facility]) Diazepam 2 MG Oral Tablet Diazepam 2 MG 11/10/2019 12:00:00 AM EDT active Diazepam 2 MG eCW1 ([facility]) Diazepam 2 MG Oral Tablet Diazepam 2 MG 11/10/2019 12:00:00 AM EDT active Diazepam 2 MG eCW1 ([facility]) Diazepam 2 MG Oral Tablet Diazepam 2 MG 11/10/2019 12:00:00 AM EDT active Diazepam 2 MG eCW1 ([facility]) Diazepam 2 MG Oral Tablet Diazepam 2 MG 11/10/2019 12:00:00 AM EDT 1.0 {tablet_as_needed} active Diazepam 2 MG eCW1 ([facility]) Diazepam 2 MG Oral Tablet Diazepam 2 MG 11/10/2019 12:00:00 AM EDT active Diazepam 2 MG eCW1 ([facility]) Diazepam 2 MG Oral Tablet Diazepam 2 MG 11/10/2019 12:00:00 AM EDT active Diazepam 2 MG eCW1 ([facility]) Diazepam 2 MG Oral Tablet Diazepam 2 MG 11/10/2019 12:00:00 AM EDT active Diazepam 2 MG eCW1 ([facility]) Diazepam 2 MG Oral Tablet Diazepam 2 MG 11/10/2019 12:00:00 AM EDT active Diazepam 2 MG eCW1 ([facility]) Diazepam 2 MG Oral Tablet Diazepam 2 MG 11/10/2019 12:00:00 AM EDT active Diazepam 2 MG eCW1 ([facility]) Diazepam 2 MG Oral Tablet Diazepam 2 MG 11/10/2019 12:00:00 AM EDT 1.0 {tablet_as_needed} active Diazepam 2 MG eCW1 ([facility]) Diazepam 2 MG Oral Tablet Diazepam 2 MG 11/10/2019 12:00:00 AM EDT 1.0 {tablet_as_needed} active Diazepam 2 MG eCW1 ([facility]) Diazepam 2 MG Oral Tablet Diazepam 2 MG 11/10/2019 12:00:00 AM EDT active Diazepam 2 MG eCW1 ([facility]) Diazepam 2 MG Oral Tablet Diazepam 2 MG 11/10/2019 12:00:00 AM EDT active Diazepam 2 MG eCW1 ([facility]) Diazepam 2 MG Oral Tablet Diazepam 2 MG 11/10/2019 12:00:00 AM EDT 1.0 {tablet_as_needed} active Diazepam 2 MG eCW1 ([facility]) Diazepam 2 MG Oral Tablet Diazepam 2 MG 11/10/2019 12:00:00 AM EDT 1.0 {tablet_as_needed} active Diazepam 2 MG eCW1 ([facility]) Diazepam 2 MG Oral Tablet Diazepam 2 MG 11/10/2019 12:00:00 AM EDT active Diazepam 2 MG eCW1 ([facility]) Diazepam 2 MG Oral Tablet Diazepam 2 MG 11/10/2019 12:00:00 AM EDT 1.0 {tablet_as_needed} active Diazepam 2 MG eCW1 ([facility]) Diazepam 2 MG Oral Tablet Diazepam 2 MG 11/10/2019 12:00:00 AM EDT 1.0 {tablet_as_needed} active Diazepam 2 MG eCW1 ([facility]) Diazepam 2 MG Oral Tablet Diazepam 2 MG 11/10/2019 12:00:00 AM EDT 1.0 {tablet_as_needed} active Diazepam 2 MG eCW1 ([facility]) Diazepam 2 MG Oral Tablet Diazepam 2 MG 11/10/2019 12:00:00 AM EDT 1.0 {tablet_as_needed} active Diazepam 2 MG eCW1 ([facility]) Diazepam 2 MG Oral Tablet Diazepam 2 MG 11/10/2019 12:00:00 AM EDT active Diazepam 2 MG eCW1 ([facility]) Diazepam 2 MG Oral Tablet Diazepam 2 MG 11/10/2019 12:00:00 AM EDT active Diazepam 2 MG eCW1 ([facility]) Diazepam 2 MG Oral Tablet Diazepam 2 MG 11/10/2019 12:00:00 AM EDT 1.0 {tablet_as_needed} active Diazepam 2 MG eCW1 ([facility]) Diazepam 2 MG Oral Tablet Diazepam 2 MG 11/10/2019 12:00:00 AM EDT 1.0 {tablet_as_needed} active Diazepam 2 MG eCW1 ([facility]) Diazepam 2 MG Oral Tablet Diazepam 2 MG 11/10/2019 12:00:00 AM EDT active Diazepam 2 MG eCW1 ([facility]) Diazepam 2 MG Oral Tablet Diazepam 2 MG 11/10/2019 12:00:00 AM EDT 1.0 {tablet_as_needed} active Diazepam 2 MG eCW1 ([facility]) Diazepam 2 MG Oral Tablet Diazepam 2 MG 11/10/2019 12:00:00 AM EDT active Diazepam 2 MG eCW1 ([facility]) Diazepam 2 MG Oral Tablet Diazepam 2 MG 11/10/2019 12:00:00 AM EDT active Diazepam 2 MG eCW1 ([facility]) Diazepam 2 MG Oral Tablet Diazepam 2 MG 11/10/2019 12:00:00 AM EDT active Diazepam 2 MG eCW1 ([facility]) Diazepam 2 MG Oral Tablet Diazepam 2 MG 11/10/2019 12:00:00 AM EDT active Diazepam 2 MG eCW1 ([facility]) Diazepam 2 MG Oral Tablet Diazepam 2 MG 11/10/2019 12:00:00 AM EDT active Diazepam 2 MG eCW1 ([facility]) Diazepam 2 MG Oral Tablet Diazepam 2 MG 11/10/2019 12:00:00 AM EDT active Diazepam 2 MG eCW1 ([facility]) Diazepam 2 MG Oral Tablet Diazepam 2 MG 11/10/2019 12:00:00 AM EDT 1.0 {tablet_as_needed} active Diazepam 2 MG eCW1 ([facility]) Diazepam 2 MG Oral Tablet Diazepam 2 MG 11/10/2019 12:00:00 AM EDT active Diazepam 2 MG eCW1 ([facility]) Diazepam 2 MG Oral Tablet Diazepam 2 MG 11/10/2019 12:00:00 AM EDT active Diazepam 2 MG eCW1 ([facility]) Diazepam 2 MG Oral Tablet Diazepam 2 MG 11/10/2019 12:00:00 AM EDT 1.0 {tablet_as_needed} active Diazepam 2 MG eCW1 ([facility]) Diazepam 2 MG Oral Tablet Diazepam 2 MG 11/10/2019 12:00:00 AM EDT active Diazepam 2 MG eCW1 ([facility]) Diazepam 2 MG Oral Tablet Diazepam 2 MG 11/10/2019 12:00:00 AM EDT 1.0 {tablet_as_needed} active Diazepam 2 MG eCW1 ([facility]) Diazepam 2 MG Oral Tablet Diazepam 2 MG 11/10/2019 12:00:00 AM EDT 1.0 {tablet_as_needed} active Diazepam 2 MG eCW1 ([facility]) Diazepam 2 MG Oral Tablet Diazepam 2 MG 11/10/2019 12:00:00 AM EDT 1.0 {tablet_as_needed} active Diazepam 2 MG eCW1 ([facility]) Diazepam 2 MG Oral Tablet Diazepam 2 MG 11/10/2019 12:00:00 AM EDT 1.0 {tablet_as_needed} active Diazepam 2 MG eCW1 ([facility]) Diazepam 2 MG Oral Tablet Diazepam 2 MG 11/10/2019 12:00:00 AM EDT active Diazepam 2 MG eCW1 (Formerly [facility]) Diazepam 2 MG Oral Tablet Diazepam 2 MG 11/10/2019 12:00:00 AM EDT 1.0 {tablet_as_needed} active Diazepam 2 MG eCW1 (Formerly [facility]) Diazepam 2 MG Oral Tablet Diazepam 2 MG 11/10/2019 12:00:00 AM EDT active Diazepam 2 MG eCW1 (Former[facility]) Diazepam 2 MG Oral Tablet Diazepam 2 MG 11/10/2019 12:00:00 AM EDT 1.0 {tablet_as_needed} active Diazepam 2 MG eCW1 (Former[facility]) Diazepam 2 MG Oral Tablet Diazepam 2 MG 11/10/2019 12:00:00 AM EDT active Diazepam 2 MG eCW1 (Formerly [facility]) Diazepam 2 MG Oral Tablet Diazepam 2 MG 11/10/2019 12:00:00 AM EDT active Diazepam 2 MG eCW1 ([facility]) Diazepam 2 MG Oral Tablet Diazepam 2 MG 11/10/2019 12:00:00 AM EDT active Diazepam 2 MG eCW1 ([facility]) Diazepam 2 MG Oral Tablet Diazepam 2 MG 11/10/2019 12:00:00 AM EDT active Diazepam 2 MG eCW1 ([facility]) Diazepam 2 MG Oral Tablet Diazepam 2 MG 11/10/2019 12:00:00 AM EDT active Diazepam 2 MG eCW1 (Formerly [facility]) Diazepam 2 MG Oral Tablet Diazepam 2 MG 11/10/2019 12:00:00 AM EDT active Diazepam 2 MG eCW1 ([facility]) Diazepam 2 MG Oral Tablet Diazepam 2 MG 11/10/2019 12:00:00 AM EDT active Diazepam 2 MG eCW1 ([facility]) Diazepam 2 MG Oral Tablet Diazepam 2 MG 11/10/2019 12:00:00 AM EDT active Diazepam 2 MG eCW1 ([facility]) Diazepam 2 MG Oral Tablet Diazepam 2 MG 11/10/2019 12:00:00 AM EDT active Diazepam 2 MG eCW1 ([facility]ly [facility]) 15 mg 11/04/2019 12:00:00 AM EDT [...] Primidone 09/22/2019 12:00:00 AM EDT active MEDENT ([facility], ) 250 mg 09/22/2019 12:00:00 [...] Spiriva Respimat 2 .5 MCG/ACT eCW1 (Formerly [facility]) 28 ACTUAT tiotropium 0.0025 MG/ACTUAT Me tered Dose Inhaler [Spiriva] Spiriva Respimat 2.5 MCG/ACT Spiriva Respimat 2.5 MCG/ACT 09/04/2019 12:00:00 AM EDT 2.0 {puffs} suspended Spiriva Respimat 2 .5 MCG/ACT eCW1 (Formerly [facility]) 28 ACTUAT tiotropium 0.0025 MG/ACTUAT Me tered Dose Inhaler [Spiriva] Spiriva Respimat 2.5 MCG/ACT Spiriva Respimat 2.5 MCG/ACT 09/04/2019 12:00:00 AM EDT 2.0 {puffs} active Spiriva Respimat 2.5 MCG/ACT eCW1 (Formerly [facility]) 28 ACTUAT tiotropium 0.0025 MG/ACTUAT Me tered Dose Inhaler [Spiriva] Spiriva Respimat 2.5 MCG/ACT Spiriva Respimat 2.5 MCG/ACT 09/04/2019 12:00:00 AM EDT 2.0 {puffs} suspended Spiriva Respimat 2 .5 MCG/ACT eCW1 ([facility]) 15 mg 09/04/2019 12:00:00 AM EDT [...] active Spiriva Respimat 2.5 MCG/ACT eCW1 ([facility]ly [facility]) 28 ACTUAT tiotropium 0.0025 MG/ACTUAT Me tered Dose Inhaler [Spiriva] Spiriva Respimat 2.5 MCG/ACT Spiriva Respimat 2.5 MCG/ACT 09/04/2019 12:00:00 AM EDT 2.0 {puffs} active Spiriva Respimat 2.5 MCG/ACT eCW1 ([facility]ly [facility]) 28 ACTUAT tiotropium 0.0025 MG/ACTUAT Me tered Dose Inhaler [Spiriva] Spiriva Respimat 2.5 MCG/ACT Spiriva Respimat 2.5 MCG/ACT 09/04/2019 12:00:00 AM EDT 2.0 {puffs} suspended Spiriva Respimat 2 .5 MCG/ACT eCW1 ([facility]ly [facility]) 28 ACTUAT tiotropium 0.0025 MG/ACTUAT Me tered Dose Inhaler [Spiriva] Spiriva Respimat 2.5 MCG/ACT Spiriva Respimat 2.5 MCG/ACT 09/04/2019 12:00:00 AM EDT 2.0 {puffs} active Spiriva Respimat 2.5 MCG/ACT eCW1 ([facility]) 28 ACTUAT tiotropium 0.0025 MG/ACTUAT Me tered Dose Inhaler [Spiriva] Spiriva Respimat 2.5 MCG/ACT Spiriva Respimat 2.5 MCG/ACT 09/04/2019 12:00:00 AM EDT 2.0 {puffs} suspended Spiriva Respimat 2 .5 MCG/ACT eCW1 ([facility]) 28 ACTUAT tiotropium 0.0025 MG/ACTUAT Me tered Dose Inhaler [Spiriva] Spiriva Respimat 2.5 MCG/ACT Spiriva Respimat 2.5 MCG/ACT 09/04/2019 12:00:00 AM EDT 2.0 {puffs} active Spiriva Respimat 2.5 MCG/ACT eCW1 ([facility]) 28 ACTUAT tiotropium 0.0025 MG/ACTUAT Me tered Dose Inhaler [Spiriva] Spiriva Respimat 2.5 MCG/ACT Spiriva Respimat 2.5 MCG/ACT 09/04/2019 12:00:00 AM EDT 2.0 {puffs} suspended Spiriva Respimat 2 .5 MCG/ACT eCW1 ([facility]) 28 ACTUAT tiotropium 0.0025 MG/ACTUAT Me tered Dose Inhaler [Spiriva] Spiriva Respimat 2.5 MCG/ACT Spiriva Respimat 2.5 MCG/ACT 09/04/2019 12:00:00 AM EDT 2.0 {puffs} active Spiriva Respimat 2.5 MCG/ACT eCW1 ([facility]) 28 ACTUAT tiotropium 0.0025 MG/ACTUAT Me tered Dose Inhaler [Spiriva] Spiriva Respimat 2.5 MCG/ACT Spiriva Respimat 2.5 MCG/ACT 09/04/2019 12:00:00 AM EDT 2.0 {puffs} active Spiriva Respimat 2.5 MCG/ACT eCW1 ([facility]) 28 ACTUAT tiotropium 0.0025 MG/ACTUAT Me tered Dose Inhaler [Spiriva] Spiriva Respimat 2.5 MCG/ACT Spiriva Respimat 2.5 MCG/ACT 09/04/2019 12:00:00 AM EDT 2.0 {puffs} suspended Spiriva Respimat 2 .5 MCG/ACT eCW1 ([facility]) 28 ACTUAT tiotropium 0.0025 MG/ACTUAT Me tered Dose Inhaler [Spiriva] Spiriva Respimat 2.5 MCG/ACT Spiriva Respimat 2.5 MCG/ACT 09/04/2019 12:00:00 AM EDT 2.0 {puffs} active Spiriva Respimat 2.5 MCG/ACT eCW1 ([facility]) 28 ACTUAT tiotropium 0.0025 MG/ACTUAT Me tered Dose Inhaler [Spiriva] Spiriva Respimat 2.5 MCG/ACT Spiriva Respimat 2.5 MCG/ACT 09/04/2019 12:00:00 AM EDT 2.0 {puffs} suspended Spiriva Respimat 2 .5 MCG/ACT eCW1 ([facility]) 28 ACTUAT tiotropium 0.0025 MG/ACTUAT Me tered Dose Inhaler [Spiriva] Spiriva Respimat 2.5 MCG/ACT Spiriva Respimat 2.5 MCG/ACT 09/04/2019 12:00:00 AM EDT 2.0 {puffs} active Spiriva Respimat 2.5 MCG/ACT eCW1 ([facility]) 28 ACTUAT tiotropium 0.0025 MG/ACTUAT Me tered Dose Inhaler [Spiriva] Spiriva Respimat 2.5 MCG/ACT Spiriva Respimat 2.5 MCG/ACT 09/04/2019 12:00:00 AM EDT 2.0 {puffs} suspended Spiriva Respimat 2 .5 MCG/ACT eCW1 ([facility]) 28 ACTUAT tiotropium 0.0025 MG/ACTUAT Me tered Dose Inhaler [Spiriva] Spiriva Respimat 2.5 MCG/ACT Spiriva Respimat 2.5 MCG/ACT 09/04/2019 12:00:00 AM EDT 2.0 {puffs} active Spiriva Respimat 2.5 MCG/ACT eCW1 ([facility]) 28 ACTUAT tiotropium 0.0025 MG/ACTUAT Me tered Dose Inhaler [Spiriva] Spiriva Respimat 2.5 MCG/ACT Spiriva Respimat 2.5 MCG/ACT 09/04/2019 12:00:00 AM EDT 2.0 {puffs} active Spiriva Respimat 2.5 MCG/ACT eCW1 ([facility]) 28 ACTUAT tiotropium 0.0025 MG/ACTUAT Me tered Dose Inhaler [Spiriva] Spiriva Respimat 2.5 MCG/ACT Spiriva Respimat 2.5 MCG/ACT 09/04/2019 12:00:00 AM EDT 2.0 {puffs} active Spiriva Respimat 2.5 MCG/ACT eCW1 ([facility]) 28 ACTUAT tiotropium 0.0025 MG/ACTUAT Me tered Dose Inhaler [Spiriva] Spiriva Respimat 2.5 MCG/ACT Spiriva Respimat 2.5 MCG/ACT 09/04/2019 12:00:00 AM EDT 2.0 {puffs} suspended Spiriva Respimat 2 .5 MCG/ACT eCW1 ([facility]) 28 ACTUAT tiotropium 0.0025 MG/ACTUAT Me tered Dose Inhaler [Spiriva] Spiriva Respimat 2.5 MCG/ACT Spiriva Respimat 2.5 MCG/ACT 09/04/2019 12:00:00 AM EDT 2.0 {puffs} active Spiriva Respimat 2.5 MCG/ACT eCW1 ([facility]) 28 ACTUAT tiotropium 0.0025 MG/ACTUAT Me tered Dose Inhaler [Spiriva] Spiriva Respimat 2.5 MCG/ACT Spiriva Respimat 2.5 MCG/ACT 09/04/2019 12:00:00 AM EDT 2.0 {puffs} active Spiriva Respimat 2.5 MCG/ACT eCW1 ([facility]) 28 ACTUAT tiotropium 0.0025 MG/ACTUAT Me tered Dose Inhaler [Spiriva] Spiriva Respimat 2.5 MCG/ACT Spiriva Respimat 2.5 MCG/ACT 09/04/2019 12:00:00 AM EDT 2.0 {puffs} suspended Spiriva Respimat 2 .5 MCG/ACT eCW1 ([facility]) 28 ACTUAT tiotropium 0.0025 MG/ACTUAT Me tered Dose Inhaler [Spiriva] Spiriva Respimat 2.5 MCG/ACT Spiriva Respimat 2.5 MCG/ACT 09/04/2019 12:00:00 AM EDT 2.0 {puffs} suspended Spiriva Respimat 2 .5 MCG/ACT eCW1 ([facility]) 28 ACTUAT tiotropium 0.0025 MG/ACTUAT Me tered Dose Inhaler [Spiriva] Spiriva Respimat 2.5 MCG/ACT Spiriva Respimat 2.5 MCG/ACT 09/04/2019 12:00:00 AM EDT 2.0 {puffs} active Spiriva Respimat 2.5 MCG/ACT eCW1 ([facility]) 28 ACTUAT tiotropium 0.0025 MG/ACTUAT Me tered Dose Inhaler [Spiriva] Spiriva Respimat 2.5 MCG/ACT Spiriva Respimat 2.5 MCG/ACT 09/04/2019 12:00:00 AM EDT 2.0 {puffs} suspended Spiriva Respimat 2 .5 MCG/ACT eCW1 ([facility]) 28 ACTUAT tiotropium 0.0025 MG/ACTUAT Me tered Dose Inhaler [Spiriva] Spiriva Respimat 2.5 MCG/ACT Spiriva Respimat 2.5 MCG/ACT 09/04/2019 12:00:00 AM EDT 2.0 {puffs} active Spiriva Respimat 2.5 MCG/ACT eCW1 ([facility]) 28 ACTUAT tiotropium 0.0025 MG/ACTUAT Me tered Dose Inhaler [Spiriva] Spiriva Respimat 2.5 MCG/ACT Spiriva Respimat 2.5 MCG/ACT 09/04/2019 12:00:00 AM EDT 2.0 {puffs} suspended Spiriva Respimat 2 .5 MCG/ACT eCW1 ([facility]) 28 ACTUAT tiotropium 0.0025 MG/ACTUAT Me tered Dose Inhaler [Spiriva] Spiriva Respimat 2.5 MCG/ACT Spiriva Respimat 2.5 MCG/ACT 09/04/2019 12:00:00 AM EDT 2.0 {puffs} suspended Spiriva Respimat 2 .5 MCG/ACT eCW1 ([facility]) 28 ACTUAT tiotropium 0.0025 MG/ACTUAT Me tered Dose Inhaler [Spiriva] Spiriva Respimat 2.5 MCG/ACT Spiriva Respimat 2.5 MCG/ACT 09/04/2019 12:00:00 AM EDT 2.0 {puffs} active Spiriva Respimat 2.5 MCG/ACT eCW1 ([facility]) 28 ACTUAT tiotropium 0.0025 MG/ACTUAT Me tered Dose Inhaler [Spiriva] Spiriva Respimat 2.5 MCG/ACT Spiriva Respimat 2.5 MCG/ACT 09/04/2019 12:00:00 AM EDT 2.0 {puffs} active Spiriva Respimat 2.5 MCG/ACT eCW1 ([facility]) 28 ACTUAT tiotropium 0.0025 MG/ACTUAT Me tered Dose Inhaler [Spiriva] Spiriva Respimat 2.5 MCG/ACT Spiriva Respimat 2.5 MCG/ACT 09/04/2019 12:00:00 AM EDT 2.0 {puffs} suspended Spiriva Respimat 2 .5 MCG/ACT eCW1 ([facility]) 28 ACTUAT tiotropium 0.0025 MG/ACTUAT Me tered Dose Inhaler [Spiriva] Spiriva Respimat 2.5 MCG/ACT Spiriva Respimat 2.5 MCG/ACT 09/04/2019 12:00:00 AM EDT 2.0 {puffs} active Spiriva Respimat 2.5 MCG/ACT eCW1 ([facility]) 28 ACTUAT tiotropium 0.0025 MG/ACTUAT Me tered Dose Inhaler [Spiriva] Spiriva Respimat 2.5 MCG/ACT Spiriva Respimat 2.5 MCG/ACT 09/04/2019 12:00:00 AM EDT 2.0 {puffs} suspended Spiriva Respimat 2 .5 MCG/ACT eCW1 ([facility]) 28 ACTUAT tiotropium 0.0025 MG/ACTUAT Me tered Dose Inhaler [Spiriva] Spiriva Respimat 2.5 MCG/ACT Spiriva Respimat 2.5 MCG/ACT 09/04/2019 12:00:00 AM EDT 2.0 {puffs} active Spiriva Respimat 2.5 MCG/ACT eCW1 ([facility]) 28 ACTUAT tiotropium 0.0025 MG/ACTUAT Me tered Dose Inhaler [Spiriva] Spiriva Respimat 2.5 MCG/ACT Spiriva Respimat 2.5 MCG/ACT 09/04/2019 12:00:00 AM EDT 2.0 {puffs} active Spiriva Respimat 2.5 MCG/ACT eCW1 ([facility]) 28 ACTUAT tiotropium 0.0025 MG/ACTUAT Me tered Dose Inhaler [Spiriva] Spiriva Respimat 2.5 MCG/ACT Spiriva Respimat 2.5 MCG/ACT 09/04/2019 12:00:00 AM EDT 2.0 {puffs} active Spiriva Respimat 2.5 MCG/ACT eCW1 ([facility]) 28 ACTUAT tiotropium 0.0025 MG/ACTUAT Me tered Dose Inhaler [Spiriva] Spiriva Respimat 2.5 MCG/ACT Spiriva Respimat 2.5 MCG/ACT 09/04/2019 12:00:00 AM EDT 2.0 {puffs} active Spiriva Respimat 2.5 MCG/ACT eCW1 ([facility]) 28 ACTUAT tiotropium 0.0025 MG/ACTUAT Me tered Dose Inhaler [Spiriva] Spiriva Respimat 2.5 MCG/ACT Spiriva Respimat 2.5 MCG/ACT 09/04/2019 12:00:00 AM EDT 2.0 {puffs} active Spiriva Respimat 2.5 MCG/ACT eCW1 ([facility]) 28 ACTUAT tiotropium 0.0025 MG/ACTUAT Me tered Dose Inhaler [Spiriva] Spiriva Respimat 2.5 MCG/ACT Spiriva Respimat 2.5 MCG/ACT 09/04/2019 12:00:00 AM EDT 2.0 {puffs} suspended Spiriva Respimat 2 .5 MCG/ACT eCW1 ([facility]) 28 ACTUAT tiotropium 0.0025 MG/ACTUAT Me tered Dose Inhaler [Spiriva] Spiriva Respimat 2.5 MCG/ACT Spiriva Respimat 2.5 MCG/ACT 09/04/2019 12:00:00 AM EDT 2.0 {puffs} active Spiriva Respimat 2.5 MCG/ACT eCW1 ([facility]) 28 ACTUAT tiotropium 0.0025 MG/ACTUAT Me tered Dose Inhaler [Spiriva] Spiriva Respimat 2.5 MCG/ACT Spiriva Respimat 2.5 MCG/ACT 09/04/2019 12:00:00 AM EDT 2.0 {puffs} suspended Spiriva Respimat 2 .5 MCG/ACT eCW1 ([facility]) 28 ACTUAT tiotropium 0.0025 MG/ACTUAT Me tered Dose Inhaler [Spiriva] Spiriva Respimat 2.5 MCG/ACT Spiriva Respimat 2.5 MCG/ACT 09/04/2019 12:00:00 AM EDT 2.0 {puffs} active Spiriva Respimat 2.5 MCG/ACT eCW1 ([facility]) 28 ACTUAT tiotropium 0.0025 MG/ACTUAT Me tered Dose Inhaler [Spiriva] Spiriva Respimat 2.5 MCG/ACT Spiriva Respimat 2.5 MCG/ACT 09/04/2019 12:00:00 AM EDT 2.0 {puffs} active Spiriva Respimat 2.5 MCG/ACT eCW1 ([facility]) 28 ACTUAT tiotropium 0.0025 MG/ACTUAT Me tered Dose Inhaler [Spiriva] Spiriva Respimat 2.5 MCG/ACT Spiriva Respimat 2.5 MCG/ACT 09/04/2019 12:00:00 AM EDT 2.0 {puffs} active Spiriva Respimat 2.5 MCG/ACT eCW1 ([facility]) 28 ACTUAT tiotropium 0.0025 MG/ACTUAT Me tered Dose Inhaler [Spiriva] Spiriva Respimat 2.5 MCG/ACT Spiriva Respimat 2.5 MCG/ACT 09/04/2019 12:00:00 AM EDT 2.0 {puffs} suspended Spiriva Respimat 2 .5 MCG/ACT eCW1 ([facility]) 28 ACTUAT tiotropium 0.0025 MG/ACTUAT Me tered Dose Inhaler [Spiriva] Spiriva Respimat 2.5 MCG/ACT Spiriva Respimat 2.5 MCG/ACT 09/04/2019 12:00:00 AM EDT 2.0 {puffs} suspended Spiriva Respimat 2 .5 MCG/ACT eCW1 ([facility]) 28 ACTUAT tiotropium 0.0025 MG/ACTUAT Me tered Dose Inhaler [Spiriva] Spiriva Respimat 2.5 MCG/ACT Spiriva Respimat 2.5 MCG/ACT 09/04/2019 12:00:00 AM EDT 2.0 {puffs} active Spiriva Respimat 2.5 MCG/ACT eCW1 ([facility]) 28 ACTUAT tiotropium 0.0025 MG/ACTUAT Me tered Dose Inhaler [Spiriva] Spiriva Respimat 2.5 MCG/ACT Spiriva Respimat 2.5 MCG/ACT 09/04/2019 12:00:00 AM EDT 2.0 {puffs} active Spiriva Respimat 2.5 MCG/ACT eCW1 ([facility]) 28 ACTUAT tiotropium 0.0025 MG/ACTUAT Me tered Dose Inhaler [Spiriva] Spiriva Respimat 2.5 MCG/ACT Spiriva Respimat 2.5 MCG/ACT 09/04/2019 12:00:00 AM EDT 2.0 {puffs} active Spiriva Respimat 2.5 MCG/ACT eCW1 ([facility]) 28 ACTUAT tiotropium 0.0025 MG/ACTUAT Me tered Dose Inhaler [Spiriva] Spiriva Respimat 2.5 MCG/ACT Spiriva Respimat 2.5 MCG/ACT 09/04/2019 12:00:00 AM EDT 2.0 {puffs} active Spiriva Respimat 2.5 MCG/ACT eCW1 ([facility]) 28 ACTUAT tiotropium 0.0025 MG/ACTUAT Me tered Dose Inhaler [Spiriva] Spiriva Respimat 2.5 MCG/ACT Spiriva Respimat 2.5 MCG/ACT 09/04/2019 12:00:00 AM EDT 2.0 {puffs} active Spiriva Respimat 2.5 MCG/ACT eCW1 ([facility]) 28 ACTUAT tiotropium 0.0025 MG/ACTUAT Me tered Dose Inhaler [Spiriva] Spiriva Respimat 2.5 MCG/ACT Spiriva Respimat 2.5 MCG/ACT 09/04/2019 12:00:00 AM EDT 2.0 {puffs} suspended Spiriva Respimat 2 .5 MCG/ACT eCW1 ([facility]) Morphine Sulfate 15 MG Extended Release Oral Tablet Mo rphine Sulfate ER 15 MG Morphine Sulfate ER 15 MG 09/03/2019 12:00:00 AM EDT active Morphine Sulfate ER 15 MG eCW1 ([facility]) Morphine Sulfate 15 MG Extended Release Oral Tablet Mo rphine Sulfate ER 15 MG Morphine Sulfate ER 15 MG 09/03/2019 12:00:00 AM EDT active Morphine Sulfate ER 15 MG eCW1 ([facility]) Morphine Sulfate 15 MG Extended Release Oral Tablet Mo rphine Sulfate ER 15 MG Morphine Sulfate ER 15 MG 09/03/2019 12:00:00 AM EDT active Morphine Sulfate ER 15 MG eCW1 ([facility]) Morphine Sulfate 15 MG Extended Release Oral Tablet Mo rphine Sulfate ER 15 MG Morphine Sulfate ER 15 MG 09/03/2019 12:00:00 AM EDT active Morphine Sulfate ER 15 MG eCW1 ([facility]) Morphine Sulfate 15 MG Extended Release Oral Tablet Mo rphine Sulfate ER 15 MG Morphine Sulfate ER 15 MG 09/03/2019 12:00:00 AM EDT active Morphine Sulfate ER 15 MG eCW1 ([facility]) Morphine Sulfate 15 MG Extended Release Oral Tablet Mo rphine Sulfate ER 15 MG Morphine Sulfate ER 15 MG 09/03/2019 12:00:00 AM EDT active Morphine Sulfate ER 15 MG eCW1 ([facility]) Morphine Sulfate 15 MG Extended Release Oral Tablet Mo rphine Sulfate ER 15 MG Morphine Sulfate ER 15 MG 09/03/2019 12:00:00 AM EDT active Morphine Sulfate ER 15 MG eCW1 ([facility]) Morphine Sulfate 15 MG Extended Release Oral Tablet Mo rphine Sulfate ER 15 MG Morphine Sulfate ER 15 MG 09/03/2019 12:00:00 AM EDT active Morphine Sulfate ER 15 MG eCW1 ([facility]) Morphine Sulfate 15 MG Extended Release Oral Tablet Mo rphine Sulfate ER 15 MG Morphine Sulfate ER 15 MG 09/03/2019 12:00:00 AM EDT active Morphine Sulfate ER 15 MG eCW1 ([facility]) Morphine Sulfate 15 MG Extended Release Oral Tablet Mo rphine Sulfate ER 15 MG Morphine Sulfate ER 15 MG 09/03/2019 12:00:00 AM EDT active Morphine Sulfate ER 15 MG eCW1 ([facility]) 50 mg 08/27/2019 12:00:00 AM EDT [...] Primidone 08/26/2019 12:00:00 AM EDT completed [facility] ([facility], ) 200 ACTUAT Albuterol 0.09 MG/ACTUAT Mete red Dose Inhaler [Ventolin] Ventolin HFA 108 (90 Base) MCG/ACT Ventolin HFA 108 (90 Base) MCG/ACT 08/25/2019 12:00:00 AM EDT 1.0 {puff_as_needed} suspended Ventolin HFA 108 (90 Base) MCG/ACT eCW1 ([facility]) tiotropium 0.018 MG/ACTUAT Inhalant Powder [Spiriva] S piriva HandiHaler 18 MCG Spiriva HandiHaler 18 MCG 08/25/2019 12:00:00 AM EDT active Spiriva HandiHaler 18 MCG eCW1 ([facility]) 200 ACTUAT Albuterol 0.09 MG/ACTUAT Mete red Dose Inhaler [Ventolin] Ventolin HFA 108 (90 Base) MCG/ACT Ventolin HFA 108 (90 Base) MCG/ACT 08/25/2019 12:00:00 AM EDT 1.0 {puff_as_needed} suspended Ventolin HFA 108 (90 Base) MCG/ACT eCW1 ([facility]) 200 ACTUAT Albuterol 0.09 MG/ACTUAT Mete red Dose Inhaler [Ventolin] Ventolin HFA 108 (90 Base) MCG/ACT Ventolin HFA 108 (90 Base) MCG/ACT 08/25/2019 12:00:00 AM EDT 1.0 {puff_as_needed} suspended Ventolin HFA 108 (90 Base) MCG/ACT eCW1 ([facility]) 200 ACTUAT Albuterol 0.09 MG/ACTUAT Mete red Dose Inhaler [Ventolin] Ventolin HFA 108 (90 Base) MCG/ACT Ventolin HFA 108 (90 Base) MCG/ACT 08/25/2019 12:00:00 AM EDT 1.0 {puff_as_needed} suspended Ventolin HFA 108 (90 Base) MCG/ACT eCW1 ([facility]) tiotropium 0.018 MG/ACTUAT Inhalant Powder [Spiriva] S piriva HandiHaler 18 MCG Spiriva HandiHaler 18 MCG 08/25/2019 12:00:00 AM EDT active Spiriva HandiHaler 18 MCG eCW1 ([facility]) 200 ACTUAT Albuterol 0.09 MG/ACTUAT Mete red Dose Inhaler [Ventolin] Ventolin HFA 108 (90 Base) MCG/ACT Ventolin HFA 108 (90 Base) MCG/ACT 08/25/2019 12:00:00 AM EDT 1.0 {puff_as_needed} active Jovani tolin HFA 108 (90 Base) MCG/ACT eCW1 ([facility]) tiotropium 0.018 MG/ACTUAT Inhalant Powder [Spiriva] S piriva HandiHaler 18 MCG Spiriva HandiHaler 18 MCG 08/25/2019 12:00:00 AM EDT active Spiriva HandiHaler 18 MCG eCW1 ([facility]) 200 ACTUAT Albuterol 0.09 MG/ACTUAT Mete red Dose Inhaler [Ventolin] Ventolin HFA 108 (90 Base) MCG/ACT Ventolin HFA 108 (90 Base) MCG/ACT 08/25/2019 12:00:00 AM EDT 1.0 {puff_as_needed} suspended Ventolin HFA 108 (90 Base) MCG/ACT eCW1 ([facility]) 200 ACTUAT Albuterol 0.09 MG/ACTUAT Mete red Dose Inhaler [Ventolin] Ventolin HFA 108 (90 Base) MCG/ACT Ventolin HFA 108 (90 Base) MCG/ACT 08/25/2019 12:00:00 AM EDT 1.0 {puff_as_needed} active Jovani tolin HFA 108 (90 Base) MCG/ACT eCW1 ([facility]) tiotropium 0.018 MG/ACTUAT Inhalant Powder [Spiriva] S piriva HandiHaler 18 MCG Spiriva HandiHaler 18 MCG 08/25/2019 12:00:00 AM EDT active Spiriva HandiHaler 18 MCG eCW1 ([facility]) 200 ACTUAT Albuterol 0.09 MG/ACTUAT Mete red Dose Inhaler [Ventolin] Ventolin HFA 108 (90 Base) MCG/ACT Ventolin HFA 108 (90 Base) MCG/ACT 08/25/2019 12:00:00 AM EDT 1.0 {puff_as_needed} active Jovani tolin HFA 108 (90 Base) MCG/ACT eCW1 ([facility]) tiotropium 0.018 MG/ACTUAT Inhalant Powder [Spiriva] S piriva HandiHaler 18 MCG Spiriva HandiHaler 18 MCG 08/25/2019 12:00:00 AM EDT active Spiriva HandiHaler 18 MCG eCW1 ([facility]) 200 ACTUAT Albuterol 0.09 MG/ACTUAT Mete red Dose Inhaler [Ventolin] Ventolin HFA 108 (90 Base) MCG/ACT Ventolin HFA 108 (90 Base) MCG/ACT 08/25/2019 12:00:00 AM EDT 1.0 {puff_as_needed} active Jovani tolin HFA 108 (90 Base) MCG/ACT eCW1 ([facility]) 200 ACTUAT Albuterol 0.09 MG/ACTUAT Mete red Dose Inhaler [Ventolin] Ventolin HFA 108 (90 Base) MCG/ACT Ventolin HFA 108 (90 Base) MCG/ACT 08/25/2019 12:00:00 AM EDT 1.0 {puff_as_needed} suspended Ventolin HFA 108 (90 Base) MCG/ACT eCW1 ([facility]) 200 ACTUAT Albuterol 0.09 MG/ACTUAT Mete red Dose Inhaler [Ventolin] Ventolin HFA 108 (90 Base) MCG/ACT Ventolin HFA 108 (90 Base) MCG/ACT 08/25/2019 12:00:00 AM EDT 1.0 {puff_as_needed} suspended Ventolin HFA 108 (90 Base) MCG/ACT eCW1 ([facility]) 200 ACTUAT Albuterol 0.09 MG/ACTUAT Mete red Dose Inhaler [Ventolin] Ventolin HFA 108 (90 Base) MCG/ACT Ventolin HFA 108 (90 Base) MCG/ACT 08/25/2019 12:00:00 AM EDT 1.0 {puff_as_needed} suspended Ventolin HFA 108 (90 Base) MCG/ACT eCW1 ([facility]) 200 ACTUAT Albuterol 0.09 MG/ACTUAT Mete red Dose Inhaler [Ventolin] Ventolin HFA 108 (90 Base) MCG/ACT Ventolin HFA 108 (90 Base) MCG/ACT 08/25/2019 12:00:00 AM EDT 1.0 {puff_as_needed} suspended Ventolin HFA 108 (90 Base) MCG/ACT eCW1 ([facility]) 200 ACTUAT Albuterol 0.09 MG/ACTUAT Mete red Dose Inhaler [Ventolin] Ventolin HFA 108 (90 Base) MCG/ACT Ventolin HFA 108 (90 Base) MCG/ACT 08/25/2019 12:00:00 AM EDT 1.0 {puff_as_needed} suspended Ventolin HFA 108 (90 Base) MCG/ACT eCW1 ([facility]) 200 ACTUAT Albuterol 0.09 MG/ACTUAT Mete red Dose Inhaler [Ventolin] Ventolin HFA 108 (90 Base) MCG/ACT Ventolin HFA 108 (90 Base) MCG/ACT 08/25/2019 12:00:00 AM EDT 1.0 {puff_as_needed} suspended Ventolin HFA 108 (90 Base) MCG/ACT eCW1 ([facility]) 200 ACTUAT Albuterol 0.09 MG/ACTUAT Mete red Dose Inhaler [Ventolin] Ventolin HFA 108 (90 Base) MCG/ACT Ventolin HFA 108 (90 Base) MCG/ACT 08/25/2019 12:00:00 AM EDT 1.0 {puff_as_needed} active Jovani tolin HFA 108 (90 Base) MCG/ACT eCW1 ([facility]) 200 ACTUAT Albuterol 0.09 MG/ACTUAT Mete red Dose Inhaler [Ventolin] Ventolin HFA 108 (90 Base) MCG/ACT Ventolin HFA 108 (90 Base) MCG/ACT 08/25/2019 12:00:00 AM EDT 1.0 {puff_as_needed} suspended Ventolin HFA 108 (90 Base) MCG/ACT eCW1 ([facility]) tiotropium 0.018 MG/ACTUAT Inhalant Powder [Spiriva] S piriva HandiHaler 18 MCG Spiriva HandiHaler 18 MCG 08/25/2019 12:00:00 AM EDT active Spiriva HandiHaler 18 MCG eCW1 ([facility]) 200 ACTUAT Albuterol 0.09 MG/ACTUAT Mete red Dose Inhaler [Ventolin] Ventolin HFA 108 (90 Base) MCG/ACT Ventolin HFA 108 (90 Base) MCG/ACT 08/25/2019 12:00:00 AM EDT 1.0 {puff_as_needed} suspended Ventolin HFA 108 (90 Base) MCG/ACT eCW1 (Formerly [facility]) 200 ACTUAT Albuterol 0.09 MG/ACTUAT Mete red Dose Inhaler [Ventolin] Ventolin HFA 108 (90 Base) MCG/ACT Ventolin HFA 108 (90 Base) MCG/ACT 08/25/2019 12:00:00 AM EDT 1.0 {puff_as_needed} active Jovani tolin HFA 108 (90 Base) MCG/ACT eCW1 ([facility]ly [facility]) 200 ACTUAT Albuterol 0.09 MG/ACTUAT Mete red Dose Inhaler [Ventolin] Ventolin HFA 108 (90 Base) MCG/ACT Ventolin HFA 108 (90 Base) MCG/ACT 08/25/2019 12:00:00 AM EDT 1.0 {puff_as_needed} active Jovani tolin HFA 108 (90 Base) MCG/ACT eCW1 ([facility]ly [facility]) 200 ACTUAT Albuterol 0.09 MG/ACTUAT Mete red Dose Inhaler [Ventolin] Ventolin HFA 108 (90 Base) MCG/ACT Ventolin HFA 108 (90 Base) MCG/ACT 08/25/2019 12:00:00 AM EDT 1.0 {puff_as_needed} suspended Ventolin HFA 108 (90 Base) MCG/ACT eCW1 ([facility]ly [facility]) 200 ACTUAT Albuterol 0.09 MG/ACTUAT Mete red Dose Inhaler [Ventolin] Ventolin HFA 108 (90 Base) MCG/ACT Ventolin HFA 108 (90 Base) MCG/ACT 08/25/2019 12:00:00 AM EDT 1.0 {puff_as_needed} suspended Ventolin HFA 108 (90 Base) MCG/ACT eCW1 ([facility]ly [facility]) 200 ACTUAT Albuterol 0.09 MG/ACTUAT Mete red Dose Inhaler [Ventolin] Ventolin HFA 108 (90 Base) MCG/ACT Ventolin HFA 108 (90 Base) MCG/ACT 08/25/2019 12:00:00 AM EDT 1.0 {puff_as_needed} suspended Ventolin HFA 108 (90 Base) MCG/ACT eCW1 ([facility]ly [facility]) 200 ACTUAT Albuterol 0.09 MG/ACTUAT Mete red Dose Inhaler [Ventolin] Ventolin HFA 108 (90 Base) MCG/ACT Ventolin HFA 108 (90 Base) MCG/ACT 08/25/2019 12:00:00 AM EDT 1.0 {puff_as_needed} suspended Ventolin HFA 108 (90 Base) MCG/ACT eCW1 ([facility]ly [facility]) 200 ACTUAT Albuterol 0.09 MG/ACTUAT Mete red Dose Inhaler [Ventolin] Ventolin HFA 108 (90 Base) MCG/ACT Ventolin HFA 108 (90 Base) MCG/ACT 08/25/2019 12:00:00 AM EDT 1.0 {puff_as_needed} suspended Ventolin HFA 108 (90 Base) MCG/ACT eCW1 ([facility]) 200 ACTUAT Albuterol 0.09 MG/ACTUAT Mete red Dose Inhaler [Ventolin] Ventolin HFA 108 (90 Base) MCG/ACT Ventolin HFA 108 (90 Base) MCG/ACT 08/25/2019 12:00:00 AM EDT 1.0 {puff_as_needed} suspended Ventolin HFA 108 (90 Base) MCG/ACT eCW1 ([facility]) 200 ACTUAT Albuterol 0.09 MG/ACTUAT Mete red Dose Inhaler [Ventolin] Ventolin HFA 108 (90 Base) MCG/ACT Ventolin HFA 108 (90 Base) MCG/ACT 08/25/2019 12:00:00 AM EDT 1.0 {puff_as_needed} suspended Ventolin HFA 108 (90 Base) MCG/ACT eCW1 ([facility]ly [facility]) tiotropium 0.018 MG/ACTUAT Inhalant Powder [Spiriva] S piriva HandiHaler 18 MCG Spiriva HandiHaler 18 MCG 08/25/2019 12:00:00 AM EDT active Spiriva HandiHaler 18 MCG eCW1 ([facility]ly [facility]) 200 ACTUAT Albuterol 0.09 MG/ACTUAT Mete red Dose Inhaler [Ventolin] Ventolin HFA 108 (90 Base) MCG/ACT Ventolin HFA 108 (90 Base) MCG/ACT 08/25/2019 12:00:00 AM EDT 1.0 {puff_as_needed} suspended Ventolin HFA 108 (90 Base) MCG/ACT eCW1 ([facility]ly [facility]) tiotropium 0.018 MG/ACTUAT Inhalant Powder [Spiriva] S piriva HandiHaler 18 MCG Spiriva HandiHaler 18 MCG 08/25/2019 12:00:00 AM EDT active Spiriva HandiHaler 18 MCG eCW1 (Formerly [facility]) 200 ACTUAT Albuterol 0.09 MG/ACTUAT Mete red Dose Inhaler [Ventolin] Ventolin HFA 108 (90 Base) MCG/ACT Ventolin HFA 108 (90 Base) MCG/ACT 08/25/2019 12:00:00 AM EDT 1.0 {puff_as_needed} active Jovani tolin HFA 108 (90 Base) MCG/ACT eCW1 ([facility]ly [facility]) 10-325 mg 08/15/2019 12:00:00 AM EDT [...] active Percocet 10-3 25 MG eCW1 (Formerly [facility]) Acetaminophen 325 MG / Oxycodone Hydroch loride 10 MG Oral Tablet [Percocet] Percocet 10-325 MG Percocet 10-325 MG 08/07/2019 12:00:00 AM EDT 1.0 {tablet_as_needed} suspended Percocet 10 -325 MG eCW1 ([facility]ly [facility]) Acetaminophen 325 MG / Oxycodone Hydroch loride 10 MG Oral Tablet [Percocet] Percocet 10-325 MG Percocet 10-325 MG 08/07/2019 12:00:00 AM EDT 1.0 {tablet_as_needed} suspended Percocet 10 -325 MG eCW1 ([facility]ly [facility]) Acetaminophen 325 MG / Oxycodone Hydroch loride 10 MG Oral Tablet [Percocet] Percocet 10-325 MG Percocet 10-325 MG 08/07/2019 12:00:00 AM EDT 1.0 {tablet_as_needed} active Percocet 10-3 25 MG eCW1 ([facility]) Acetaminophen 325 MG / Oxycodone Hydroch loride 10 MG Oral Tablet [Percocet] Percocet 10-325 MG Percocet 10-325 MG 08/07/2019 12:00:00 AM EDT 1.0 {tablet_as_needed} suspended Percocet 10 -325 MG eCW1 ([facility]) Acetaminophen 325 MG / Oxycodone Hydroch loride 10 MG Oral Tablet [Percocet] Percocet 10-325 MG Percocet 10-325 MG 08/07/2019 12:00:00 AM EDT 1.0 {tablet_as_needed} suspended Percocet 10 -325 MG eCW1 ([facility]) Acetaminophen 325 MG / Oxycodone Hydroch loride 10 MG Oral Tablet [Percocet] Percocet 10-325 MG Percocet 10-325 MG 08/07/2019 12:00:00 AM EDT 1.0 {tablet_as_needed} active Percocet 10-3 25 MG eCW1 ([facility]) Acetaminophen 325 MG / Oxycodone Hydroch loride 10 MG Oral Tablet [Percocet] Percocet 10-325 MG Percocet 10-325 MG 08/07/2019 12:00:00 AM EDT 1.0 {tablet_as_needed} suspended Percocet 10 -325 MG eCW1 ([facility]) Acetaminophen 325 MG / Oxycodone Hydroch loride 10 MG Oral Tablet [Percocet] Percocet 10-325 MG Percocet 10-325 MG 08/07/2019 12:00:00 AM EDT 1.0 {tablet_as_needed} active Percocet 10-3 25 MG eCW1 ([facility]) Acetaminophen 325 MG / Oxycodone Hydroch loride 10 MG Oral Tablet [Percocet] Percocet 10-325 MG Percocet 10-325 MG 08/07/2019 12:00:00 AM EDT 1.0 {tablet_as_needed} active Percocet 10-3 25 MG eCW1 ([facility]) Acetaminophen 325 MG / Oxycodone Hydroch loride 10 MG Oral Tablet [Percocet] Percocet 10-325 MG Percocet 10-325 MG 08/07/2019 12:00:00 AM EDT 1.0 {tablet_as_needed} active Percocet 10-3 25 MG eCW1 ([facility]) Acetaminophen 325 MG / Oxycodone Hydroch loride 10 MG Oral Tablet [Percocet] Percocet 10-325 MG Percocet 10-325 MG 08/07/2019 12:00:00 AM EDT 1.0 {tablet_as_needed} active Percocet 10-3 25 MG eCW1 ([facility]) Acetaminophen 325 MG / Oxycodone Hydroch loride 10 MG Oral Tablet [Percocet] Percocet 10-325 MG Percocet 10-325 MG 08/07/2019 12:00:00 AM EDT 1.0 {tablet_as_needed} active Percocet 10-3 25 MG eCW1 ([facility]) Acetaminophen 325 MG / Oxycodone Hydroch loride 10 MG Oral Tablet [Percocet] Percocet 10-325 MG Percocet 10-325 MG 08/07/2019 12:00:00 AM EDT 1.0 {tablet_as_needed} suspended Percocet 10 -325 MG eCW1 ([facility]) Acetaminophen 325 MG / Oxycodone Hydroch loride 10 MG Oral Tablet [Percocet] Percocet 10-325 MG Percocet 10-325 MG 08/07/2019 12:00:00 AM EDT 1.0 {tablet_as_needed} suspended Percocet 10 -325 MG eCW1 ([facility]) Acetaminophen 325 MG / Oxycodone Hydroch loride 10 MG Oral Tablet [Percocet] Percocet 10-325 MG Percocet 10-325 MG 08/07/2019 12:00:00 AM EDT 1.0 {tablet_as_needed} suspended Percocet 10 -325 MG eCW1 ([facility]) Acetaminophen 325 MG / Oxycodone Hydroch loride 10 MG Oral Tablet [Percocet] Percocet 10-325 MG Percocet 10-325 MG 08/07/2019 12:00:00 AM EDT 1.0 {tablet_as_needed} active Percocet 10-3 25 MG eCW1 ([facility]) Acetaminophen 325 MG / Oxycodone Hydroch loride 10 MG Oral Tablet [Percocet] Percocet 10-325 MG Percocet 10-325 MG 08/07/2019 12:00:00 AM EDT 1.0 {tablet_as_needed} active Percocet 10-3 25 MG eCW1 ([facility]) Acetaminophen 325 MG / Oxycodone Hydroch loride 10 MG Oral Tablet [Percocet] Percocet 10-325 MG Percocet 10-325 MG 08/07/2019 12:00:00 AM EDT 1.0 {tablet_as_needed} active Percocet 10-3 25 MG eCW1 ([facility]) Acetaminophen 325 MG / Oxycodone Hydroch loride 10 MG Oral Tablet [Percocet] Percocet 10-325 MG Percocet 10-325 MG 08/07/2019 12:00:00 AM EDT 1.0 {tablet_as_needed} active Percocet 10-3 25 MG eCW1 ([facility]) Acetaminophen 325 MG / Oxycodone Hydroch loride 10 MG Oral Tablet [Percocet] Percocet 10-325 MG Percocet 10-325 MG 08/07/2019 12:00:00 AM EDT 1.0 {tablet_as_needed} suspended Percocet 10 -325 MG eCW1 ([facility]) Acetaminophen 325 MG / Oxycodone Hydroch loride 10 MG Oral Tablet [Percocet] Percocet 10-325 MG Percocet 10-325 MG 08/07/2019 12:00:00 AM EDT 1.0 {tablet_as_needed} active Percocet 10-3 25 MG eCW1 ([facility]) Acetaminophen 325 MG / Oxycodone Hydroch loride 10 MG Oral Tablet [Percocet] Percocet 10-325 MG Percocet 10-325 MG 08/07/2019 12:00:00 AM EDT 1.0 {tablet_as_needed} active Percocet 10-3 25 MG eCW1 ([facility]) Acetaminophen 325 MG / Oxycodone Hydroch loride 10 MG Oral Tablet [Percocet] Percocet 10-325 MG Percocet 10-325 MG 08/07/2019 12:00:00 AM EDT 1.0 {tablet_as_needed} suspended Percocet 10 -325 MG eCW1 ([facility]) Acetaminophen 325 MG / Oxycodone Hydroch loride 10 MG Oral Tablet [Percocet] Percocet 10-325 MG Percocet 10-325 MG 08/07/2019 12:00:00 AM EDT 1.0 {tablet_as_needed} suspended Percocet 10 -325 MG eCW1 ([facility]) Acetaminophen 325 MG / Oxycodone Hydroch loride 10 MG Oral Tablet [Percocet] Percocet 10-325 MG Percocet 10-325 MG 08/07/2019 12:00:00 AM EDT 1.0 {tablet_as_needed} suspended Percocet 10 -325 MG eCW1 ([facility]) Acetaminophen 325 MG / Oxycodone Hydroch loride 10 MG Oral Tablet [Percocet] Percocet 10-325 MG Percocet 10-325 MG 08/07/2019 12:00:00 AM EDT 1.0 {tablet_as_needed} active Percocet 10-3 25 MG eCW1 ([facility]) Acetaminophen 325 MG / Oxycodone Hydroch loride 10 MG Oral Tablet [Percocet] Percocet 10-325 MG Percocet 10-325 MG 08/07/2019 12:00:00 AM EDT 1.0 {tablet_as_needed} active Percocet 10-3 25 MG eCW1 ([facility]) Acetaminophen 325 MG / Oxycodone Hydroch loride 10 MG Oral Tablet [Percocet] Percocet 10-325 MG Percocet 10-325 MG 08/07/2019 12:00:00 AM EDT 1.0 {tablet_as_needed} active Percocet 10-3 25 MG eCW1 ([facility]) 15 mg 08/06/2019 12:00:00 AM EDT [...] tive Propranolol HCl 10 MG eCW1 ([facility]) Chlorthalidone 25 MG Oral Tablet Chlorthalidone 25 MG 2019 12:00:00 AM EDT 1.0 {tablet_in_the_morning_with_food} active Chlorthalidone 25 MG eCW1 ([facility]) 10 mg 08/04/2019 12:00:00 AM EDT tablet 60 TAKE ONE TABLET BY MOUTH TWICE A DAY TAKE ONE TABLET BY MOUTH TWICE A DAY SOLD: 08/05/2019 [facility] Morphine Sulfate 15 MG Extended Release Oral Tablet Mo rphine Sulfate ER 15 MG Morphine Sulfate ER 15 MG 07/28/2019 12:00:00 AM EDT active Morphine Sulfate ER 15 MG eCW1 ([facility]) Morphine Sulfate 15 MG Extended Release Oral Tablet Mo rphine Sulfate ER 15 MG Morphine Sulfate ER 15 MG 07/28/2019 12:00:00 AM EDT active Morphine Sulfate ER 15 MG eCW1 ([facility]) Morphine Sulfate 15 MG Extended Release Oral Tablet Mo rphine Sulfate ER 15 MG Morphine Sulfate ER 15 MG 07/28/2019 12:00:00 AM EDT active Morphine Sulfate ER 15 MG eCW1 ([facility]) Morphine Sulfate 15 MG Extended Release Oral Tablet Mo rphine Sulfate ER 15 MG Morphine Sulfate ER 15 MG 07/28/2019 12:00:00 AM EDT active Morphine Sulfate ER 15 MG eCW1 ([facility]) Morphine Sulfate 15 MG Extended Release Oral Tablet Mo rphine Sulfate ER 15 MG Morphine Sulfate ER 15 MG 07/28/2019 12:00:00 AM EDT active Morphine Sulfate ER 15 MG eCW1 ([facility]) 300 mg 07/28/2019 12:00:00 AM EDT capsule 60 TAKE ONE CAPSULE BY MOUTH TWICE A DAY, MAXIMUM DAILY DOSE = 2 CAPSULES TAKE ONE CAPSULE BY MOUTH TWICE A DAY, MAXIMUM DAILY DOSE = 2 CAPSULES SOLD: 08/26/2019 [facility] Morphine Sulfate 15 MG Extended Release Oral Tablet Mo rphine Sulfate ER 15 MG Morphine Sulfate ER 15 MG 07/28/2019 12:00:00 AM EDT active Morphine Sulfate ER 15 MG eCW1 ([facility]) Morphine Sulfate 15 MG Extended Release Oral Tablet Mo rphine Sulfate ER 15 MG Morphine Sulfate ER 15 MG 07/28/2019 12:00:00 AM EDT active Morphine Sulfate ER 15 MG eCW1 ([facility]) Morphine Sulfate 15 MG Extended Release Oral Tablet Mo rphine Sulfate ER 15 MG Morphine Sulfate ER 15 MG 07/28/2019 12:00:00 AM EDT active Morphine Sulfate ER 15 MG eCW1 ([facility]) 300 mg 07/28/2019 12:00:00 AM EDT capsule 60 TAKE ONE CAPSULE BY MOUTH TWICE A DAY, MAXIMUM DAILY DOSE = 2 CAPSULES TAKE ONE CAPSULE BY MOUTH TWICE A DAY, MAXIMUM DAILY DOSE = 2 CAPSULES SOLD: 07/28/2019 [facility] 300 mg 07/28/2019 12:00:00 AM EDT capsule 60 TAKE ONE CAPSULE BY MOUTH TWICE A DAY, MAXIMUM DAILY DOSE = 2 CAPSULES TAKE ONE CAPSULE BY MOUTH TWICE A DAY, MAXIMUM DAILY DOSE = 2 CAPSULES SOLD: 09/24/2019 [facility] Morphine Sulfate 15 MG Extended Release Oral Tablet Mo rphine Sulfate ER 15 MG Morphine Sulfate ER 15 MG 07/28/2019 12:00:00 AM EDT active Morphine Sulfate ER 15 MG eCW1 ([facility]) Morphine Sulfate 15 MG Extended Release Oral Tablet Mo rphine Sulfate ER 15 MG Morphine Sulfate ER 15 MG 07/28/2019 12:00:00 AM EDT active Morphine Sulfate ER 15 MG eCW1 ([facility]) 10-325 mg 07/17/2019 12:00:00 AM EDT [...] EDT active 1 tablet as needed eCW1 ([facility]) Amitriptyline Hydrochloride 25 MG Oral Tablet [...] Morphine Sulfate ER 15 MG eCW1 ([facility]) Morphine Sulfate 15 MG Extended Release Oral Tablet Mo rphine Sulfate ER 15 MG Morphine Sulfate ER 15 MG 07/07/2019 12:00:00 AM EDT active Morphine Sulfate ER 15 MG eCW1 ([facility]) Morphine Sulfate 15 MG Extended Release Oral Tablet Mo rphine Sulfate ER 15 MG Morphine Sulfate ER 15 MG 07/07/2019 12:00:00 AM EDT active 1 to 2 as directed eCW1 ([facility]) 15 mg 07/07/2019 12:00:00 AM EDT tablet extended release 90 TAKE 1 TABLET BY MOUTH EVERY MORNING AND 2 TABLETS AT BEDTIME, MAXIMUM DAILY DOSE = 3 TABLETS TAKE 1 TABLET BY MOUTH EVERY MORNING AND 2 TABLETS AT BEDTIME, MAXIMUM DAILY DOSE = 3 TABLETS SOLD: 07/08/2019 [facility] Morphine Sulfate 15 MG Extended Release Oral Tablet Mo rphine Sulfate ER 15 MG Morphine Sulfate ER 15 MG 07/07/2019 12:00:00 AM EDT active Morphine Sulfate ER 15 MG eCW1 ([facility]) 100,000 unit/gram 06/25/2019 12:00:00 AM EDT cream [...] active Percocet 10-3 25 MG eCW1 ([facility]) Acetaminophen 325 MG / Oxycodone Hydroch loride 10 MG Oral Tablet [Percocet] Percocet 10-325 MG Percocet 10-325 MG 06/17/2019 12:00:00 AM EDT 1.0 {tablet_as_needed} active Percocet 10-3 25 MG eCW1 ([facility]) Acetaminophen 325 MG / Oxycodone Hydroch loride 10 MG Oral Tablet [Percocet] Percocet 10-325 MG Percocet 10-325 MG 06/17/2019 12:00:00 AM EDT active 1 tablet as needed eCW1 ([facility]) Acetaminophen 325 MG / Oxycodone Hydroch loride 10 MG Oral Tablet [Percocet] Percocet 10-325 MG Percocet 10-325 MG 06/17/2019 12:00:00 AM EDT 1.0 {tablet_as_needed} active Percocet 10-3 25 MG eCW1 ([facility]) Acetaminophen 325 MG / Oxycodone Hydroch loride 10 MG Oral Tablet [Percocet] Percocet 10-325 MG Percocet 10-325 MG 06/17/2019 12:00:00 AM EDT active 1 tablet as needed eCW1 ([facility]) Acetaminophen 325 MG / Oxycodone Hydroch loride 10 MG Oral Tablet [Percocet] Percocet 10-325 MG Percocet 10-325 MG 06/17/2019 12:00:00 AM EDT 1.0 {tablet_as_needed} active Percocet 10-3 25 MG eCW1 ([facility]) Acetaminophen 325 MG / Oxycodone Hydroch loride 10 MG Oral Tablet [Percocet] Percocet 10-325 MG Percocet 10-325 MG 06/17/2019 12:00:00 AM EDT 1.0 {tablet_as_needed} active Percocet 10-3 25 MG eCW1 ([facility]) Acetaminophen 325 MG / Oxycodone Hydroch loride 10 MG Oral Tablet [Percocet] Percocet 10-325 MG Percocet 10-325 MG 06/17/2019 12:00:00 AM EDT 1.0 {tablet_as_needed} active Percocet 10-3 25 MG eCW1 ([facility]) 5 mg 06/11/2019 12:00:00 AM EDT [...] 1 to 2 as directed eCW1 ([facility]) Morphine Sulfate 15 MG Extended Release Oral Tablet Mo rphine Sulfate ER 15 MG Morphine Sulfate ER 15 MG 06/03/2019 12:00:00 AM EDT active 1 to 2 as directed eCW1 ([facility]) 40 mg 06/03/2019 12:00:00 AM EDT [...] 1 to 2 as directed eCW1 ([facility]) 350 mg 05/31/2019 12:00:00 AM EDT tablet [...] DAILY DOSE = 4 TABLETS SOLD: 05/20/2019 [facility] Acetaminophen 325 MG / Oxycodone Hydroch loride 10 MG Oral Tablet [Percocet] Percocet 10-325 MG Percocet 10-325 MG 05/18/2019 12:00:00 AM EDT active 1 tablet as needed eCW1 ([facility]) Acetaminophen 325 MG / Oxycodone Hydroch loride 10 MG Oral Tablet [Percocet] Percocet 10-325 MG Percocet 10-325 MG 05/18/2019 12:00:00 AM EDT active 1 tablet as needed eCW1 ([facility]) Acetaminophen 325 MG / Oxycodone Hydroch loride 10 MG Oral Tablet [Percocet] Percocet 10-325 MG Percocet 10-325 MG 05/18/2019 12:00:00 AM EDT active 1 tablet as needed eCW1 ([facility]) 800 mg 05/16/2019 12:00:00 AM EDT [...] 1 to 2 as directed eCW1 ([facility]) Morphine Sulfate 15 MG Extended Release Oral Tablet Mo rphine Sulfate ER 15 MG Morphine Sulfate ER 15 MG 05/04/2019 12:00:00 AM EDT active 1 to 2 as directed eCW1 ([facility]) Morphine Sulfate 15 MG Extended Release Oral Tablet Mo rphine Sulfate ER 15 MG Morphine Sulfate ER 15 MG 05/04/2019 12:00:00 AM EDT active 1 to 2 as directed eCW1 ([facility]) 100,000 unit/gram 04/30/2019 12:00:00 AM EDT cream 30 APPLY TO RASH ON GROIN TWO TIMES A DAY APPLY TO RASH ON GROIN TWO TIMES A DAY SOLD: 05/13/2019 [facility] 100,000 unit/gram 04/30/2019 12:00:00 AM EDT cream 30 APPLY TO RASH ON GROIN TWO TIMES A DAY APPLY TO RASH ON GROIN TWO TIMES A DAY SOLD: 05/12/2019 [facility] Acetaminophen 325 MG / Oxycodone Hydroch loride 10 MG Oral Tablet [Percocet] Percocet 10-325 MG Percocet 10-325 MG 04/21/2019 12:00:00 AM EDT active 1 tablet as needed eCW1 ([facility]) 10-325 mg 04/21/2019 12:00:00 AM EDT tablet 120 TAKE ONE TABLET BY MOUTH EVERY 6 HOURS NEEDED MAXIMUM DAILY DOSE = 4 TABLETS TAKE ONE TABLET BY MOUTH EVERY 6 HOURS NEEDED MAXIMUM DAILY DOSE = 4 TABLETS SOLD: 04/21/2019 [facility] 100,000 unit/gram 04/15/2019 12:00:00 AM [...] 1 to 2 as directed eCW1 ([facility]) Morphine Sulfate 15 MG Extended Release Oral Tablet Mo rphine Sulfate ER 15 MG Morphine Sulfate ER 15 MG 04/08/2019 12:00:00 AM EST active 1 to 2 as directed eCW1 ([facility]) Amitriptyline Hydrochloride 25 MG Oral Tablet [...] 10 days, Max Daily Dose: 20 mg [facility] 20 mg 03/27/2019 12:00:00 AM EST tablet [...] MOUTH THREE TIMES A DAY SOLD: 06/30/2019 [facility] atorvastatin 40 MG Oral Tablet Atorvastatin Calcium 40 MG Atorvastatin Calcium 40 MG 03/26/2019 12:00:00 AM EST active 1 tablet eCW1 ([facility]) atorvastatin 40 MG Oral Tablet Atorvastatin Calcium 40 MG Atorvastatin Calcium 40 MG 03/26/2019 12:00:00 AM EST 1.0 {tablet} activ e Atorvastatin Calcium 40 MG eCW1 ([facility]) atorvastatin 40 MG Oral Tablet Atorvastatin Calcium 40 MG Atorvastatin Calcium 40 MG 03/26/2019 12:00:00 AM EST active 1 tablet eCW1 ([facility]) atorvastatin 40 MG Oral Tablet Atorvastatin Calcium 40 MG Atorvastatin Calcium 40 MG 03/26/2019 12:00:00 AM EST 1.0 {tablet} activ e Atorvastatin Calcium 40 MG eCW1 ([facility]) atorvastatin 40 MG Oral Tablet Atorvastatin Calcium 40 MG Atorvastatin Calcium 40 MG 03/26/2019 12:00:00 AM EST 1.0 {tablet} activ e Atorvastatin Calcium 40 MG eCW1 ([facility]) atorvastatin 40 MG Oral Tablet Atorvastatin Calcium 40 MG Atorvastatin Calcium 40 MG 03/26/2019 12:00:00 AM EST 1.0 {tablet} activ e Atorvastatin Calcium 40 MG eCW1 ([facility]) atorvastatin 40 MG Oral Tablet Atorvastatin Calcium 40 MG Atorvastatin Calcium 40 MG 03/26/2019 12:00:00 AM EST 1.0 {tablet} activ e Atorvastatin Calcium 40 MG eCW1 ([facility]) atorvastatin 40 MG Oral Tablet Atorvastatin Calcium 40 MG Atorvastatin Calcium 40 MG 03/26/2019 12:00:00 AM EST 1.0 {tablet} activ e Atorvastatin Calcium 40 MG eCW1 ([facility]) atorvastatin 40 MG Oral Tablet Atorvastatin Calcium 40 MG Atorvastatin Calcium 40 MG 03/26/2019 12:00:00 AM EST 1.0 {tablet} activ e Atorvastatin Calcium 40 MG eCW1 ([facility]) atorvastatin 40 MG Oral Tablet Atorvastatin Calcium 40 MG Atorvastatin Calcium 40 MG 03/26/2019 12:00:00 AM EST 1.0 {tablet} activ e Atorvastatin Calcium 40 MG eCW1 ([facility]) atorvastatin 40 MG Oral Tablet Atorvastatin Calcium 40 MG Atorvastatin Calcium 40 MG 03/26/2019 12:00:00 AM EST 1.0 {tablet} activ e Atorvastatin Calcium 40 MG eCW1 ([facility]) atorvastatin 40 MG Oral Tablet Atorvastatin Calcium 40 MG Atorvastatin Calcium 40 MG 03/26/2019 12:00:00 AM EST 1.0 {tablet} activ e Atorvastatin Calcium 40 MG eCW1 ([facility]) atorvastatin 40 MG Oral Tablet Atorvastatin Calcium 40 MG Atorvastatin Calcium 40 MG 03/26/2019 12:00:00 AM EST 1.0 {tablet} activ e Atorvastatin Calcium 40 MG eCW1 ([facility]) atorvastatin 40 MG Oral Tablet Atorvastatin Calcium 40 MG Atorvastatin Calcium 40 MG 03/26/2019 12:00:00 AM EST 1.0 {tablet} activ e Atorvastatin Calcium 40 MG eCW1 ([facility]) atorvastatin 40 MG Oral Tablet Atorvastatin Calcium 40 MG Atorvastatin Calcium 40 MG 03/26/2019 12:00:00 AM EST 1.0 {tablet} activ e Atorvastatin Calcium 40 MG eCW1 ([facility]) atorvastatin 40 MG Oral Tablet Atorvastatin Calcium 40 MG Atorvastatin Calcium 40 MG 03/26/2019 12:00:00 AM EST 1.0 {tablet} activ e Atorvastatin Calcium 40 MG eCW1 ([facility]) atorvastatin 40 MG Oral Tablet Atorvastatin Calcium 40 MG Atorvastatin Calcium 40 MG 03/26/2019 12:00:00 AM EST 1.0 {tablet} activ e Atorvastatin Calcium 40 MG eCW1 ([facility]) atorvastatin 40 MG Oral Tablet Atorvastatin Calcium 40 MG Atorvastatin Calcium 40 MG 03/26/2019 12:00:00 AM EST 1.0 {tablet} activ e Atorvastatin Calcium 40 MG eCW1 ([facility]) atorvastatin 40 MG Oral Tablet Atorvastatin Calcium 40 MG Atorvastatin Calcium 40 MG 03/26/2019 12:00:00 AM EST 1.0 {tablet} activ e Atorvastatin Calcium 40 MG eCW1 ([facility]) atorvastatin 40 MG Oral Tablet Atorvastatin Calcium 40 MG Atorvastatin Calcium 40 MG 03/26/2019 12:00:00 AM EST 1.0 {tablet} activ e Atorvastatin Calcium 40 MG eCW1 ([facility]) atorvastatin 40 MG Oral Tablet Atorvastatin Calcium 40 MG Atorvastatin Calcium 40 MG 03/26/2019 12:00:00 AM EST 1.0 {tablet} activ e Atorvastatin Calcium 40 MG eCW1 ([facility]) atorvastatin 40 MG Oral Tablet Atorvastatin Calcium 40 MG Atorvastatin Calcium 40 MG 03/26/2019 12:00:00 AM EST 1.0 {tablet} activ e Atorvastatin Calcium 40 MG eCW1 ([facility]) Ergocalciferol 68127 UNT Oral Capsule Vi tamin D (Ergocalciferol) 1.25 MG (94490 UT) Oral Capsule (ERGOCALCIFEROL) Vitamin D (Ergocalciferol) 1.25 MG (5000 0 UT) Oral Capsule (ERGOCALCIFEROL) 03/26/2019 12:00:[address] [facility] Losartan Potassium 50 MG Oral Tablet [place] Potassium 50 MG Oral Tablet (COZAAR) Losartan Potassium 50 MG Oral Tablet (COZAAR) 03/26/19 12:00:00 AM EST [facility] atorvastatin 40 MG Oral Tablet Atorvastatin Calcium 40 MG Oral Tablet (LIPITOR) Atorvastatin Calcium 40 MG Oral Tablet (LIPITOR) 03/26/2019 12:00:00 AM EST [facility] atorvastatin 40 MG Oral Tablet Atorvastatin Calcium 40 MG Atorvastatin Calcium 40 MG 03/26/2019 12:00:00 AM EST active 1 tablet eCW1 ([facility]) atorvastatin 40 MG Oral Tablet Atorvastatin Calcium 40 MG Atorvastatin Calcium 40 MG 03/26/2019 12:00:00 AM EST 1.0 {tablet} activ e Atorvastatin Calcium 40 MG eCW1 ([facility]) Nystatin 851800 UNT/ML Topical Cream Nystatin 373177 U NIT/GM Nystatin [id number] UNIT/GM 03/26/2019 12:00:00 AM EST active 1 application 2g eCW1 ([facility]) atorvastatin 40 MG Oral Tablet Atorvastatin Calcium 40 MG Atorvastatin Calcium 40 MG 03/26/2019 12:00:00 AM EST 1.0 {tablet} activ e Atorvastatin Calcium 40 MG eCW1 ([facility]) atorvastatin 40 MG Oral Tablet Atorvastatin Calcium 40 MG Atorvastatin Calcium 40 MG 03/26/2019 12:00:00 AM EST 1.0 {tablet} activ e Atorvastatin Calcium 40 MG eCW1 ([facility]) atorvastatin 40 MG Oral Tablet Atorvastatin Calcium 40 MG Atorvastatin Calcium 40 MG 03/26/2019 12:00:00 AM EST active 1 tablet eCW1 ([facility]) atorvastatin 40 MG Oral Tablet Atorvastatin Calcium 40 MG Atorvastatin Calcium 40 MG 03/26/2019 12:00:00 AM EST 1.0 {tablet} activ e Atorvastatin Calcium 40 MG eCW1 ([facility]) atorvastatin 40 MG Oral Tablet Atorvastatin Calcium 40 MG Atorvastatin Calcium 40 MG 03/26/2019 12:00:00 AM EST 1.0 {tablet} activ e Atorvastatin Calcium 40 MG eCW1 ([facility]) atorvastatin 40 MG Oral Tablet Atorvastatin Calcium 40 MG Atorvastatin Calcium 40 MG 03/26/2019 12:00:00 AM EST 1.0 {tablet} activ e Atorvastatin Calcium 40 MG eCW1 ([facility]) atorvastatin 40 MG Oral Tablet Atorvastatin Calcium 40 MG Atorvastatin Calcium 40 MG 03/26/2019 12:00:00 AM EST 1.0 {tablet} activ e Atorvastatin Calcium 40 MG eCW1 ([facility]) atorvastatin 40 MG Oral Tablet Atorvastatin Calcium 40 MG Atorvastatin Calcium 40 MG 03/26/2019 12:00:00 AM EST 1.0 {tablet} activ e Atorvastatin Calcium 40 MG eCW1 ([facility]) Nystatin 099124 UNT/ML Topical Cream Nystatin [id number] U NIT/GM Nystatin [id number] UNIT/GM 03/26/2019 12:00:00 AM EST active 1 application 2g eCW1 ([facility]) atorvastatin 40 MG Oral Tablet Atorvastatin Calcium 40 MG Atorvastatin Calcium 40 MG 03/26/2019 12:00:00 AM EST 1.0 {tablet} activ e Atorvastatin Calcium 40 MG eCW1 ([facility]) atorvastatin 40 MG Oral Tablet Atorvastatin Calcium 40 MG Atorvastatin Calcium 40 MG 03/26/2019 12:00:00 AM EST active 1 tablet eCW1 ([facility]) atorvastatin 40 MG Oral Tablet Atorvastatin Calcium 40 MG Atorvastatin Calcium 40 MG 03/26/2019 12:00:00 AM EST 1.0 {tablet} activ e Atorvastatin Calcium 40 MG eCW1 ([facility]) atorvastatin 40 MG Oral Tablet Atorvastatin Calcium 40 MG Atorvastatin Calcium 40 MG 03/26/2019 12:00:00 AM EST 1.0 {tablet} activ e Atorvastatin Calcium 40 MG eCW1 ([facility]) atorvastatin 40 MG Oral Tablet Atorvastatin Calcium 40 MG Atorvastatin Calcium 40 MG 03/26/2019 12:00:00 AM EST 1.0 {tablet} activ e Atorvastatin Calcium 40 MG eCW1 ([facility]) atorvastatin 40 MG Oral Tablet Atorvastatin Calcium 40 MG Atorvastatin Calcium 40 MG 03/26/2019 12:00:00 AM EST 1.0 {tablet} activ e Atorvastatin Calcium 40 MG eCW1 (Formerly [facility]) atorvastatin 40 MG Oral Tablet Atorvastatin Calcium 40 MG Atorvastatin Calcium 40 MG 03/26/2019 12:00:00 AM EST 1.0 {tablet} activ e Atorvastatin Calcium 40 MG eCW1 (Formerly [facility]) atorvastatin 40 MG Oral Tablet Atorvastatin Calcium 40 MG Atorvastatin Calcium 40 MG 03/26/2019 12:00:00 AM EST 1.0 {tablet} activ e Atorvastatin Calcium 40 MG eCW1 (Formerly [facility]) atorvastatin 40 MG Oral Tablet Atorvastatin Calcium 40 MG Atorvastatin Calcium 40 MG 03/26/2019 12:00:00 AM EST 1.0 {tablet} activ e Atorvastatin Calcium 40 MG eCW1 (Formerly [facility]) atorvastatin 40 MG Oral Tablet Atorvastatin Calcium 40 MG Atorvastatin Calcium 40 MG 03/26/2019 12:00:00 AM EST 1.0 {tablet} activ e Atorvastatin Calcium 40 MG eCW1 (Formerly [facility]) Nystatin [id number] UNT/ML Topical Cream Nystatin [id number] U NIT/GM Nystatin [id number] UNIT/GM 03/26/2019 12:00:00 AM EST active 1 application 2g eCW1 (Formerly [facility]) atorvastatin 40 MG Oral Tablet Atorvastatin Calcium 40 MG Atorvastatin Calcium 40 MG 03/26/2019 12:00:00 AM EST 1.0 {tablet} activ e Atorvastatin Calcium 40 MG eCW1 ([facility]ly [facility]) atorvastatin 40 MG Oral Tablet Atorvastatin Calcium 40 MG Atorvastatin Calcium 40 MG 03/26/2019 12:00:00 AM EST 1.0 {tablet} activ e Atorvastatin Calcium 40 MG eCW1 ([facility]ly [facility]) atorvastatin 40 MG Oral Tablet Atorvastatin Calcium 40 MG Atorvastatin Calcium 40 MG 03/26/2019 12:00:00 AM EST 1.0 {tablet} activ e Atorvastatin Calcium 40 MG eCW1 ([facility]) atorvastatin 40 MG Oral Tablet Atorvastatin Calcium 40 MG Atorvastatin Calcium 40 MG 03/26/2019 12:00:00 AM EST 1.0 {tablet} activ e Atorvastatin Calcium 40 MG eCW1 ([facility]) atorvastatin 40 MG Oral Tablet Atorvastatin Calcium 40 MG Atorvastatin Calcium 40 MG 03/26/2019 12:00:00 AM EST 1.0 {tablet} activ e Atorvastatin Calcium 40 MG eCW1 ([facility]) Nystatin 123928 UNT/ML Topical Cream Nystatin 881461 U NIT/GM Nystatin [id number] UNIT/GM 03/26/2019 12:00:00 AM EST active 1 application 2g eCW1 ([facility]) atorvastatin 40 MG Oral Tablet Atorvastatin Calcium 40 MG Atorvastatin Calcium 40 MG 03/26/2019 12:00:00 AM EST 1.0 {tablet} activ e Atorvastatin Calcium 40 MG eCW1 ([facility]) atorvastatin 40 MG Oral Tablet Atorvastatin Calcium 40 MG Atorvastatin Calcium 40 MG 03/26/2019 12:00:00 AM EST active 1 tablet eCW1 ([facility]) atorvastatin 40 MG Oral Tablet Atorvastatin Calcium 40 MG Atorvastatin Calcium 40 MG 03/26/2019 12:00:00 AM EST 1.0 {tablet} activ e Atorvastatin Calcium 40 MG eCW1 ([facility]) atorvastatin 40 MG Oral Tablet Atorvastatin Calcium 40 MG Atorvastatin Calcium 40 MG 03/26/2019 12:00:00 AM EST 1.0 {tablet} activ e Atorvastatin Calcium 40 MG eCW1 ([facility]) atorvastatin 40 MG Oral Tablet Atorvastatin Calcium 40 MG Atorvastatin Calcium 40 MG 03/26/2019 12:00:00 AM EST 1.0 {tablet} activ e Atorvastatin Calcium 40 MG eCW1 ([facility]) atorvastatin 40 MG Oral Tablet Atorvastatin Calcium 40 MG Atorvastatin Calcium 40 MG 03/26/2019 12:00:00 AM EST 1.0 {tablet} activ e Atorvastatin Calcium 40 MG eCW1 ([facility]) atorvastatin 40 MG Oral Tablet Atorvastatin Calcium 40 MG Atorvastatin Calcium 40 MG 03/26/2019 12:00:00 AM EST 1.0 {tablet} activ e Atorvastatin Calcium 40 MG eCW1 ([facility]) atorvastatin 40 MG Oral Tablet Atorvastatin Calcium 40 MG Atorvastatin Calcium 40 MG 03/26/2019 12:00:00 AM EST 1.0 {tablet} activ e Atorvastatin Calcium 40 MG eCW1 ([facility]) atorvastatin 40 MG Oral Tablet Atorvastatin Calcium 40 MG Atorvastatin Calcium 40 MG 03/26/2019 12:00:00 AM EST 1.0 {tablet} activ e Atorvastatin Calcium 40 MG eCW1 ([facility]) atorvastatin 40 MG Oral Tablet Atorvastatin Calcium 40 MG Atorvastatin Calcium 40 MG 03/26/2019 12:00:00 AM EST 1.0 {tablet} activ e Atorvastatin Calcium 40 MG eCW1 ([facility]) atorvastatin 40 MG Oral Tablet Atorvastatin Calcium 40 MG Atorvastatin Calcium 40 MG 03/26/2019 12:00:00 AM EST active 1 tablet eCW1 ([facility]) atorvastatin 40 MG Oral Tablet Atorvastatin Calcium 40 MG Atorvastatin Calcium 40 MG 03/26/2019 12:00:00 AM EST 1.0 {tablet} activ e Atorvastatin Calcium 40 MG eCW1 ([facility]) atorvastatin 40 MG Oral Tablet Atorvastatin Calcium 40 MG Atorvastatin Calcium 40 MG 03/26/2019 12:00:00 AM EST 1.0 {tablet} activ e Atorvastatin Calcium 40 MG eCW1 ([facility]) atorvastatin 40 MG Oral Tablet Atorvastatin Calcium 40 MG Atorvastatin Calcium 40 MG 03/26/2019 12:00:00 AM EST 1.0 {tablet} activ e Atorvastatin Calcium 40 MG eCW1 ([facility]) atorvastatin 40 MG Oral Tablet Atorvastatin Calcium 40 MG Atorvastatin Calcium 40 MG 03/26/2019 12:00:00 AM EST 1.0 {tablet} activ e Atorvastatin Calcium 40 MG eCW1 ([facility]) atorvastatin 40 MG Oral Tablet Atorvastatin Calcium 40 MG Atorvastatin Calcium 40 MG 03/26/2019 12:00:00 AM EST 1.0 {tablet} activ e Atorvastatin Calcium 40 MG eCW1 ([facility]) atorvastatin 40 MG Oral Tablet Atorvastatin Calcium 40 MG Atorvastatin Calcium 40 MG 03/26/2019 12:00:00 AM EST 1.0 {tablet} activ e Atorvastatin Calcium 40 MG eCW1 ([facility]) 10-325 mg 03/26/2019 12:00:00 AM EST tablet 120 TAKE 1 TABLET BY MOUTH EVERY 6 HOURS NEEDED MAXIMUM DAILY DOSE = 4 TABLETS TAKE 1 TABLET BY MOUTH EVERY 6 HOURS NEEDED MAXIMUM DAILY DOSE = 4 TABLETS SOLD: 03/26/2019 [facility] 1,250 mcg (50,000 unit) 03/26/2019 12:00:00 AM EST capsule 4 TAKE 1 CAPSULE BY MOUTH ONCE A WEEK ON MONDAYS TAKE 1 CAPSULE BY MOUTH ONCE A WEEK ON MONDAYS SOLD: 03/27/2019 [facility] atorvastatin 40 MG Oral Tablet Atorvastatin Calcium 40 MG Atorvastatin Calcium 40 MG 03/26/2019 12:00:00 AM EST 1.0 {tablet} activ e Atorvastatin Calcium 40 MG eCW1 ([facility]) atorvastatin 40 MG Oral Tablet Atorvastatin Calcium 40 MG Atorvastatin Calcium 40 MG 03/26/2019 12:00:00 AM EST 1.0 {tablet} activ e Atorvastatin Calcium 40 MG eCW1 ([facility]) atorvastatin 40 MG Oral Tablet Atorvastatin Calcium 40 MG Atorvastatin Calcium 40 MG 03/26/2019 12:00:00 AM EST 1.0 {tablet} activ e Atorvastatin Calcium 40 MG eCW1 ([facility]) atorvastatin 40 MG Oral Tablet Atorvastatin Calcium 40 MG Atorvastatin Calcium 40 MG 03/26/2019 12:00:00 AM EST 1.0 {tablet} activ e Atorvastatin Calcium 40 MG eCW1 ([facility]) atorvastatin 40 MG Oral Tablet Atorvastatin Calcium 40 MG Atorvastatin Calcium 40 MG 03/26/2019 12:00:00 AM EST 1.0 {tablet} activ e Atorvastatin Calcium 40 MG eCW1 ([facility]) atorvastatin 40 MG Oral Tablet Atorvastatin Calcium 40 MG Atorvastatin Calcium 40 MG 03/26/2019 12:00:00 AM EST active 1 tablet eCW1 ([facility]) atorvastatin 40 MG Oral Tablet Atorvastatin Calcium 40 MG Atorvastatin Calcium 40 MG 03/26/2019 12:00:00 AM EST 1.0 {tablet} activ e Atorvastatin Calcium 40 MG eCW1 ([facility]) atorvastatin 40 MG Oral Tablet Atorvastatin Calcium 40 MG Atorvastatin Calcium 40 MG 03/26/2019 12:00:00 AM EST 1.0 {tablet} activ e Atorvastatin Calcium 40 MG eCW1 ([facility]) atorvastatin 40 MG Oral Tablet Atorvastatin Calcium 40 MG Atorvastatin Calcium 40 MG 03/26/2019 12:00:00 AM EST 1.0 {tablet} activ e Atorvastatin Calcium 40 MG eCW1 ([facility]) atorvastatin 40 MG Oral Tablet Atorvastatin Calcium 40 MG Atorvastatin Calcium 40 MG 03/26/2019 12:00:00 AM EST 1.0 {tablet} activ e Atorvastatin Calcium 40 MG eCW1 ([facility]) atorvastatin 40 MG Oral Tablet Atorvastatin Calcium 40 MG Atorvastatin Calcium 40 MG 03/26/2019 12:00:00 AM EST 1.0 {tablet} activ e Atorvastatin Calcium 40 MG eCW1 ([facility]) Nystatin 461280 UNT/ML Topical Cream Nystatin 408684 U NIT/GM Nystatin [id number] UNIT/GM 03/26/2019 12:00:00 AM EST active 1 application 2g eCW1 ([facility]) atorvastatin 40 MG Oral Tablet Atorvastatin Calcium 40 MG Atorvastatin Calcium 40 MG 03/26/2019 12:00:00 AM EST 1.0 {tablet} activ e Atorvastatin Calcium 40 MG eCW1 ([facility]) atorvastatin 40 MG Oral Tablet Atorvastatin Calcium 40 MG Atorvastatin Calcium 40 MG 03/26/2019 12:00:00 AM EST 1.0 {tablet} activ e Atorvastatin Calcium 40 MG eCW1 ([facility]) atorvastatin 40 MG Oral Tablet Atorvastatin Calcium 40 MG Atorvastatin Calcium 40 MG 03/26/2019 12:00:00 AM EST 1.0 {tablet} activ e Atorvastatin Calcium 40 MG eCW1 ([facility]) atorvastatin 40 MG Oral Tablet Atorvastatin Calcium 40 MG Atorvastatin Calcium 40 MG 03/26/2019 12:00:00 AM EST 1.0 {tablet} activ e Atorvastatin Calcium 40 MG eCW1 ([facility]) atorvastatin 40 MG Oral Tablet Atorvastatin Calcium 40 MG Atorvastatin Calcium 40 MG 03/26/2019 12:00:00 AM EST 1.0 {tablet} activ e Atorvastatin Calcium 40 MG eCW1 ([facility]) atorvastatin 40 MG Oral Tablet Atorvastatin Calcium 40 MG Atorvastatin Calcium 40 MG 03/26/2019 12:00:00 AM EST 1.0 {tablet} activ e Atorvastatin Calcium 40 MG eCW1 ([facility]) atorvastatin 40 MG Oral Tablet Atorvastatin Calcium 40 MG Atorvastatin Calcium 40 MG 03/26/2019 12:00:00 AM EST 1.0 {tablet} activ e Atorvastatin Calcium 40 MG eCW1 ([facility]) atorvastatin 40 MG Oral Tablet Atorvastatin Calcium 40 MG Atorvastatin Calcium 40 MG 03/26/2019 12:00:00 AM EST 1.0 {tablet} activ e Atorvastatin Calcium 40 MG eCW1 ([facility]) atorvastatin 40 MG Oral Tablet Atorvastatin Calcium 40 MG Atorvastatin Calcium 40 MG 03/26/2019 12:00:00 AM EST 1.0 {tablet} activ e Atorvastatin Calcium 40 MG eCW1 ([facility]) atorvastatin 40 MG Oral Tablet Atorvastatin Calcium 40 MG Atorvastatin Calcium 40 MG 03/26/2019 12:00:00 AM EST 1.0 {tablet} activ e Atorvastatin Calcium 40 MG eCW1 ([facility]) atorvastatin 40 MG Oral Tablet Atorvastatin Calcium 40 MG Atorvastatin Calcium 40 MG 03/26/2019 12:00:00 AM EST 1.0 {tablet} activ e Atorvastatin Calcium 40 MG eCW1 ([facility]) atorvastatin 40 MG Oral Tablet Atorvastatin Calcium 40 MG Atorvastatin Calcium 40 MG 03/26/2019 12:00:00 AM EST active 1 tablet eCW1 ([facility]) atorvastatin 40 MG Oral Tablet Atorvastatin Calcium 40 MG Atorvastatin Calcium 40 MG 03/26/2019 12:00:00 AM EST 1.0 {tablet} activ e Atorvastatin Calcium 40 MG eCW1 ([facility]) atorvastatin 40 MG Oral Tablet Atorvastatin Calcium 40 MG Atorvastatin Calcium 40 MG 03/26/2019 12:00:00 AM EST 1.0 {tablet} activ e Atorvastatin Calcium 40 MG eCW1 ([facility]) atorvastatin 40 MG Oral Tablet Atorvastatin Calcium 40 MG Atorvastatin Calcium 40 MG 03/26/2019 12:00:00 AM EST 1.0 {tablet} activ e Atorvastatin Calcium 40 MG eCW1 ([facility]) atorvastatin 40 MG Oral Tablet Atorvastatin Calcium 40 MG Atorvastatin Calcium 40 MG 03/26/2019 12:00:00 AM EST 1.0 {tablet} activ e Atorvastatin Calcium 40 MG eCW1 ([facility]) atorvastatin 40 MG Oral Tablet Atorvastatin Calcium 40 MG Atorvastatin Calcium 40 MG 03/26/2019 12:00:00 AM EST 1.0 {tablet} activ e Atorvastatin Calcium 40 MG eCW1 ([facility]) atorvastatin 40 MG Oral Tablet Atorvastatin Calcium 40 MG Atorvastatin Calcium 40 MG 03/26/2019 12:00:00 AM EST 1.0 {tablet} activ e Atorvastatin Calcium 40 MG eCW1 ([facility]) atorvastatin 40 MG Oral Tablet Atorvastatin Calcium 40 MG Atorvastatin Calcium 40 MG 03/26/2019 12:00:00 AM EST 1.0 {tablet} activ e Atorvastatin Calcium 40 MG eCW1 ([facility]) atorvastatin 40 MG Oral Tablet Atorvastatin Calcium 40 MG Atorvastatin Calcium 40 MG 03/26/2019 12:00:00 AM EST 1.0 {tablet} activ e Atorvastatin Calcium 40 MG eCW1 ([facility]) atorvastatin 40 MG Oral Tablet Atorvastatin Calcium 40 MG Atorvastatin Calcium 40 MG 03/26/2019 12:00:00 AM EST 1.0 {tablet} activ e Atorvastatin Calcium 40 MG eCW1 ([facility]) atorvastatin 40 MG Oral Tablet Atorvastatin Calcium 40 MG Atorvastatin Calcium 40 MG 03/26/2019 12:00:00 AM EST 1.0 {tablet} activ e Atorvastatin Calcium 40 MG eCW1 ([facility]) atorvastatin 40 MG Oral Tablet Atorvastatin Calcium 40 MG Atorvastatin Calcium 40 MG 03/26/2019 12:00:00 AM EST 1.0 {tablet} activ e Atorvastatin Calcium 40 MG eCW1 ([facility]) atorvastatin 40 MG Oral Tablet Atorvastatin Calcium 40 MG Atorvastatin Calcium 40 MG 03/26/2019 12:00:00 AM EST 1.0 {tablet} activ e Atorvastatin Calcium 40 MG eCW1 ([facility]) atorvastatin 40 MG Oral Tablet Atorvastatin Calcium 40 MG Atorvastatin Calcium 40 MG 03/26/2019 12:00:00 AM EST 1.0 {tablet} activ e Atorvastatin Calcium 40 MG eCW1 ([facility]) Nystatin 142850 UNT/ML Topical Cream Nystatin 087055 U NIT/GM Nystatin 999989 UNIT/GM 03/26/2019 12:00:00 AM EST active 1 application eCW1 ([facility]) atorvastatin 40 MG Oral Tablet Atorvastatin Calcium 40 MG Atorvastatin Calcium 40 MG 03/26/2019 12:00:00 AM EST 1.0 {tablet} activ e Atorvastatin Calcium 40 MG eCW1 ([facility]) atorvastatin 40 MG Oral Tablet Atorvastatin Calcium 40 MG Atorvastatin Calcium 40 MG 03/26/2019 12:00:00 AM EST 1.0 {tablet} activ e Atorvastatin Calcium 40 MG eCW1 ([facility]) atorvastatin 40 MG Oral Tablet Atorvastatin Calcium 40 MG Atorvastatin Calcium 40 MG 03/26/2019 12:00:00 AM EST active 1 tablet eCW1 ([facility]) atorvastatin 40 MG Oral Tablet Atorvastatin Calcium 40 MG Atorvastatin Calcium 40 MG 03/26/2019 12:00:00 AM EST 1.0 {tablet} activ e Atorvastatin Calcium 40 MG eCW1 ([facility]) Acetaminophen 325 MG / Oxycodone Hydroch loride 10 MG Oral Tablet [Percocet] Percocet 10-325 MG Percocet 10-325 MG 03/25/2019 12:00:00 AM EST active 1 tablet as needed eCW1 ([facility]) Morphine Sulfate 15 MG Extended Release Oral Tablet Mo rphine Sulfate ER 15 MG Morphine Sulfate ER 15 MG 03/10/2019 12:00:00 AM EST active 1 to 2 as directed eCW1 ([facility]) Morphine Sulfate 15 MG Extended Release Oral Tablet Mo rphine Sulfate ER 15 MG Morphine Sulfate ER 15 MG 03/10/2019 12:00:00 AM EST active 1 to 2 as directed eCW1 ([facility]) Morphine Sulfate 15 MG Extended Release Oral Tablet Mo rphine Sulfate ER 15 MG Morphine Sulfate ER 15 MG 03/10/2019 12:00:00 AM EST active 1 to 2 as directed eCW1 ([facility]) 15 mg 03/10/2019 12:00:00 AM EST tablet extended release 90 TAKE 1 TABLET BY MOUTH IN THE MORNING AND 2 AT BEDTIME MAXIMUM DAILY DOSE = 3 TAKE 1 TABLET BY MOUTH IN THE MORNING AND 2 AT BEDTIME MAXIMUM DAILY DOSE = 3 SOLD: 03/13/2019 [facility] Morphine Sulfate 15 MG Extended Release Oral Tablet Mo rphine Sulfate ER 15 MG Morphine Sulfate ER 15 MG 03/10/2019 12:00:00 AM EST active 1 to 2 as directed eCW1 ([facility]) Morphine Sulfate 15 MG Extended Release Oral Tablet Mo rphine Sulfate ER 15 MG Morphine Sulfate ER 15 MG 03/10/2019 12:00:00 AM EST active 1 to 2 as directed eCW1 ([facility]) 5 mg 03/05/2019 12:00:00 AM EST tablet 60 TAKE ONE TABLET BY MOUTH EVERY 12 HOURS NEEDED FOR ANXIETY MAXIMUM DAILY DOSE = 2 TABLETS TAKE ONE TABLET BY MOUTH EVERY 12 HOURS NEEDED FOR ANXIETY MAXIMUM DAILY DOSE = 2 TABLETS SOLD: 03/05/2019 [facility] Diazepam 5 MG Oral Tablet diazePAM 5 MG Oral Tablet (V ALIUM) diazePAM 5 MG Oral Tablet (VALIUM) 03/05/2019 12:00:00 AM EST 5 mg Oral ac tive Take 1 tablet by mouth every 12 (twelve) hours as needed for Anxiety, Max Daily Dose: 10 mg [facility] 300 mg 02/24/2019 12:00:00 AM EST capsule 60 TAKE ONE CAPSULE BY MOUTH TWICE A DAY MAXIMUM DAILY DOSE = 2 CAPSULES TAKE ONE CAPSULE BY MOUTH TWICE A DAY MAXIMUM DAILY DOSE = 2 CAPSULES SOLD: 02/25/2019 [facility] 300 mg 02/24/2019 12:00:00 AM EST capsule 60 TAKE ONE CAPSULE BY MOUTH TWICE A DAY MAXIMUM DAILY DOSE = 2 CAPSULES TAKE ONE CAPSULE BY MOUTH TWICE A DAY MAXIMUM DAILY DOSE = 2 CAPSULES SOLD: 05/25/2019 [facility] 300 mg 02/24/2019 12:00:00 AM EST capsule 60 TAKE ONE CAPSULE BY MOUTH TWICE A DAY MAXIMUM DAILY DOSE = 2 CAPSULES TAKE ONE CAPSULE BY MOUTH TWICE A DAY MAXIMUM DAILY DOSE = 2 CAPSULES SOLD: 06/26/2019 [facility] 300 mg 02/24/2019 12:00:00 AM EST capsule 60 TAKE ONE CAPSULE BY MOUTH TWICE A DAY MAXIMUM DAILY DOSE = 2 CAPSULES TAKE ONE CAPSULE BY MOUTH TWICE A DAY MAXIMUM DAILY DOSE = 2 CAPSULES SOLD: 03/26/2019 [facility] 300 mg 02/24/2019 12:00:00 AM EST capsule 60 TAKE ONE CAPSULE BY MOUTH TWICE A DAY MAXIMUM DAILY DOSE = 2 CAPSULES TAKE ONE CAPSULE BY MOUTH TWICE A DAY MAXIMUM DAILY DOSE = 2 CAPSULES SOLD: 04/25/2019 [facility] 10-325 mg 02/22/2019 12:00:00 AM EST [...] EST active 1 tablet as needed eCW1 ([facility]) Acetaminophen 325 MG / Oxycodone Hydroch loride 10 MG Oral Tablet [Percocet] Percocet 10-325 MG Percocet 10-325 MG 02/17/2019 12:00:00 AM EST active 1 tablet as needed eCW1 ([facility]) Acetaminophen 325 MG / Oxycodone Hydroch loride 10 MG Oral Tablet [Percocet] Percocet 10-325 MG Percocet 10-325 MG 02/17/2019 12:00:00 AM EST active 1 tablet as needed eCW1 ([facility]) Acetaminophen 325 MG / Oxycodone Hydroch loride 10 MG Oral Tablet [Percocet] Percocet 10-325 MG Percocet 10-325 MG 02/17/2019 12:00:00 AM EST active 1 tablet as needed eCW1 ([facility]) Acetaminophen 325 MG / Oxycodone Hydroch loride 10 MG Oral Tablet [Percocet] Percocet 10-325 MG Percocet 10-325 MG 02/17/2019 12:00:00 AM EST active 1 tablet as needed eCW1 ([facility]) Acetaminophen 325 MG / Oxycodone Hydroch loride 10 MG Oral Tablet [Percocet] Percocet 10-325 MG Percocet 10-325 MG 02/17/2019 12:00:00 AM EST active 1 tablet as needed eCW1 ([facility]) Acetaminophen 325 MG / Oxycodone Hydroch loride 10 MG Oral Tablet [Percocet] Percocet 10-325 MG Percocet 10-325 MG 02/17/2019 12:00:00 AM EST active 1 tablet as needed eCW1 ([facility]) Percocet 10-325 MG UNK 02/17/2019 12:00:00 AM EST active 1 tablet as needed eCW1 ([facility]) Amitriptyline Hydrochloride 25 MG Oral Tablet AMITRIPTYLINE HCL 02/14/2019 12:00:00 AM EST tablet 90 TAKE THREE TABLETS BY ADENIKE TH EVERY DAY TAKE THREE TABLETS BY MOUTH EVERY DAY SOLD: 03/13/2019 [facility] Amitriptyline Hydrochloride 25 MG Oral Tablet AMITRIPTYLINE HCL 02/14/2019 12:00:00 AM EST tablet 9 TAKE THREE TABLETS BY ADENIKE TH EVERY DAY TAKE THREE TABLETS BY MOUTH EVERY DAY SOLD: 08/15/2019 [facility] Amitriptyline Hydrochloride 25 MG Oral Tablet AMITRIPTYLINE HCL 02/14/2019 12:00:00 AM EST tablet 90 TAKE THREE TABLETS BY ADENIKE TH EVERY DAY TAKE THREE TABLETS BY MOUTH EVERY DAY SOLD: 02/14/2019 [facility] 15 mg 02/13/2019 12:00:00 AM EST tablet extended release 90 TAKE ONE TABLET BY MOUTH EVERY MORNING AND TAKE TWO TABLETS BY MOUTH AT BEDTIME MAXIMUM DAILY DOSE = 3 TAKE ONE TABLET BY MOUTH EVERY MORNING A ND TAKE TWO TABLETS BY MOUTH AT BEDTIME MAXIMUM DAILY DOSE = 3 SOLD: 02/14/2019 [facility] Morphine Sulfate 15 MG Extended Release Oral Tablet Mo rphine Sulfate ER 15 MG Morphine Sulfate ER 15 MG 02/12/2019 12:00:00 AM EST active 1 to 2 as directed eCW1 ([facility]) Morphine Sulfate 15 MG Extended Release Oral Tablet Mo rphine Sulfate ER 15 MG Morphine Sulfate ER 15 MG 02/12/2019 12:00:00 AM EST active 1 to 2 as directed eCW1 ([facility]) Morphine Sulfate ER 15 MG UNK 02/12/2019 12:00:00 AM EST active 1 to 2 as directed eCW1 ([facility]) 5 mg 02/03/2019 12:00:00 AM EST tablet 60 TAKE ONE TABLET BY MOUTH EVERY 12 HOURS NEEDED FOR ANXIETY MAXIMUM DAILY DOSE = 2 TAKE ONE TABLET BY MOUTH EVERY 12 HOURS NEEDED FOR ANXIETY MAXIMUM DAILY DOSE = 2 SOLD: 02/03/2019 [facility] 10-325 mg 01/24/2019 12:00:00 AM EST tablet 120 TAKE ONE TABLET BY MOUTH EVERY 6 HOURS NEEDED MAXIMUM DAILY DOSE = 4 TAKE ONE TABLET BY MOUTH EVERY 6 HOURS NEEDED MAXIMUM DAILY DOSE = 4 SOLD: 01/24/2019 [facility] duloxetine 30 MG Delayed Release Oral Ca psule DULoxetine HCl 30 MG Oral Capsule Delayed Release Particles (CYMBALTA) DULoxetine HCl 30 MG Oral Capsule [place]aye d Release Particles (CYMBALTA) 12/30/2018 12:00:00 AM EST aborted [facility] Carisoprodol 350 MG Oral Tablet CARISOPRODOL [...] = 2 CAPSULE SOLD: 01/24/2019 [facility] 20 mg 11/07/2018 12:00:00 AM [...] aborted Take 25 mg by mouth daily [facility] Propranolol Hydrochloride 20 MG Oral Tablet propranolo l (INDERAL) 20 MG tablet propranolol (INDERAL) 20 MG tablet 01/13/2018 12:00:00 AM EST aborted TAKE ONE TABLET BY MOUTH EVERY DAY ON EM PTY STOMACH [facility] Oxycodone Hydrochloride 5 MG Oral Tablet oxyCODONE (ROXICODONE) 5 MG immediate release tablet oxyCODONE (ROXICODONE) 5 MG immediate release tablet 0 06/25/2017 12:00:00 AM EDT aborted Take 1 PO q4h prn pain, MDD = 6 [facility] Insurance Providers Payer name Policy type / Coverage type Policy ID Covered alliance party ID Covered alliance party's relationship to daly Policy [place] Plan Information MEDICARE [id number] SP [id number] EXCELLUS BC-BS PPO [id number] SP [id number] MEDICARE [id number] SP [id number] MEDICARE C [id number] S [id number] [place] P[place] 302/307 [id number] SP [id number] [place] 302/307 [id number] SP [id number] [employer] BC-BS PPO 306 [id number] SP [id number] [employer] BCBS B [id number] S [id number] TRAVELERS WC W [id number] Empl [id number] BCBS [facility] 220/720 [id number] SP [id number] BCBS [employer] [id number] SP [id number] [place] PPO 302/307 [id number] SP [id number] [place] PPO 302/307 [id number] SP [id number] EXCELLUS H [id number] Self [id number] [employer]LL[employer] BC-BS PPO 306 [id number] SP [id number] 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 [id number] SP [id number] TRAVELERS-WC WCB# [id number] SP WCB # [id number] BCBS [place] PPO 302/307 [id number] SP [id number] 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 [id number] SP [id number] EXCELLUS BCBS B [id number] S [id number] 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 WCB# [id number] WCB# [id number] 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 [id number] SP [id number] TRAVELERS-WC WCB# [id number] SP WCB # [id number] 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 [id number] SP [id number] 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 [id number] SP [id number] OTHER WORKERS COMPENSATI O [id number] S WCB#[id number] TRAVELERS WC W [id number] Empl [id number] ANSI-Commercial [id number] ANSI-Not a Secondary Insurance [id number] ANSI-Not a Secondary Insurance [id number] ANSI-Commercial [id number] ANSI-Not a Secondary Insurance [id number] ANSI-Commercial [id number] ANSI-Commercial [id number] ANSI-Not a Secondary Insurance [id number] 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 WCB# [id number] SP [facility]# [id number] ANSI-Commercial [id number] ANSI-Not a Secondary Insurance [id number] ANSI-Commercial [id number] ANSI-Not a Secondary Insurance [id number] ANSI-Not a Secondary Insurance [id number]-i602-69254 7ewd7x5 51h18h2c-x976-05r1-e150-605179exs9q8 ANSI-Commercial [id number]-[id number]-[id number] ANSI-Commercial d33vyxf6-5t6z-0yb9-z850-454vnnn8r89h o23dcjt3-2x2a-6ia9-p158-604mdkw2k33h ANSI-Not a Secondary Insurance hl04m5g5-6g36-3456-7598-y140p 01f3ve3 vv76f9l3-7p05-4727-4022-p014s70e9ro5 ANSI-Commercial 23u04dg3-1e57-8sqa-6578-p0afks68lb21 49n92jy4-0p06-1yus-0987-t0dwgi31zg74 ANSI-Not a Secondary Insurance 9f80w872-75r2-04aw-fl18-ht9x3 3439n3p 4g23x111-71h2-00gf-ks85-rw1u95079b9w ANSI-Commercial 0b778k51-q54x-87y0-4mv2-15xv1l59749x 8l234x70-g60u-20j3-6mh6-52lj3k18011m ANSI-Not a Secondary Insurance 52q6abw2-81m6-587f-c865-9j1w7 mbd8e5h 86o6oac3-21n3-079b-k040-2k7h7vnd3b6u ANSI-Not a Secondary Insurance 362xz466-d610-703g-x37x-1h08b jxze5w3 901gt464-f382-667u-v78n-8c36zafqv8e9 ANSI-Commercial [id number]-xtl5-8619-ft61-y0s9p7vw9405 1s7261ov-rjr5-8899-vz91-b8e0l3ws0327 [facility] [id number] [place] [id number] ANSI-Not a Secondary Insurance [id number]-roo9-841j-uq83-kpc99 56o673b [id number]-adq3-747f-ee50-par7219e076g ANSI-Commercial 849dex35-jsc3-2vq0-1jmv-77w9h3139gnx 900ltl35-afr9-0ci3-6xjb-79w4w6497kho ANSI-Not a Secondary Insurance y81i13x2-5v15-31s8-1yt1-v46h0 c2to0b3 l89m62u7-0w81-00h8-9qz0-g41c9f2pb2t3 ANSI-Commercial 09246qlb-7349-9yw7-7cx6-8qg9w4803l19 89826lus-2841-1kc9-0ur0-6pk5d5760q24 ANSI-Commercial 9b18z4h2-084j-1563-c8p3-m51c40f45y8m 0f97k8n0-950h-6363-w6d4-g93c25c86w1b ANSI-Not a Secondary Insurance cs5m8l4i-0602-1w4o-75c6-9ezdb 03f4347 wf8u0v7h-4850-7k5c-49q2-4kdzs28k8438 ANSI-Commercial t3f31b23-d0l0-806g-yc9q-83dc576037j6 d4z63p19-t1z2-352m-fw1i-02gz318111f8 ANSI-Not a Secondary Insurance 89h6gor0-vt06-3861-l730-04e8v 1lx42l4 37b0oih5-ut89-0601-r043-08k7k3va63k3 ANSI-Not a Secondary Insurance g4444045-q687-51j9-1mf4-zp2j7 i28h233 c3980742-q122-08o1-0mg8-yx1z5h13e505 ANSI-Commercial 6qg7v6u0-570p-7q67-n7fk-32g3h6234k28 6bk7x8u9-518y-4f28-s8bi-98f9g2879a90 ANSI-Not a Secondary Insurance 4xbno90y-o0f6-004n-a3m6-tqz6u 379j2cj 2kbmx96c-d0b8-415z-s6b9-azb7a928p9ig ANSI-Commercial 91mh4hti-05x1-5273-5744-y37ofn5ud818 02io2xwo-74c5-2512-9977-x17vvt8nl723 ANSI-Not a Secondary Insurance c86r79yy-l39c-5lyt-2s65-h1631 t3k1ig2 j62x23fq-y62j-7viz-8s93-j2027j7j8ki9 ANSI-Commercial 5h59q0te-1d27-0044-s113-6n8264t1mn93 6m09y5uj-9j04-3139-q741-0s8615x1qj22 ANSI-Commercial r65ry795-6r7j-214p-c5b8-8t547y301c64 d87xv420-6r4y-102d-d3g4-5v034q325f45 ANSI-Not a Secondary Insurance 0grmnr5r-k311-550l-a4d9-ub96o 7c2p7i2 2salmf1u-k067-339r-x6p5-kz26t7h4r4w0 ANSI-Not a Secondary Insurance qv6ux600-q9s5-8847-k1d3-20790 be1o64m pi2qv911-i6q5-3597-s7a1-69529xf4s31v ANSI-Commercial 8041q3j6-92fr-6421-2r6h-06dl651dn9x5 2015a4e9-72bv-7878-2l2p-86ke478tr4z0 ANSI-Commercial 661l6b27-rf11-82d7-ru9i-3ag9mgsi5mw0 626e9m00-sq84-34m0-xl5r-0pf7rzsy1qg7 ANSI-Not a Secondary Insurance 173443t4-o6l5-1zeh-a29f-lm0u4 3948e7x 440235o0-j6j8-1ydd-j36w-mx6c32346o3h ANSI-Commercial 8n5m0iw2-261f-4e00-0228-472k126a12f1 6k4h8oo7-086d-3u47-6582-433d667n53n0 ANSI-Not a Secondary Insurance g379637m-4b04-6s07-01y1-5nys6 9p87268 l356775d-0z65-4g68-38v1-4wmf43n77864 ANSI-Not a Secondary Insurance wd0f1mnr-7g5h-41ks-l2j7-v59i5 lh966h9 cd3s6ydc-9f3r-36vb-j3b3-q20l9px414o9 ANSI-Commercial tkvif816-m3o9-03a3-6vhk-p16w667b72h9 -j2u0-40q0-6caf-x62z810q20g3 ANSI-Commercial 832463k1-64i8-1br0-2457-949w48mb8w1l 284300t1-42u6-5pa6-2418-744f50uc1i7a ANSI-Not a Secondary Insurance 098b3g5a-9c62-6244-847f-a553g wt8ajk4 062q3g0j-2t70-5859-901s-z528trr3vqx2 ANSI-Not a Secondary Insurance 100h966x-50rh-1eia-8y9z-1p464 g9b46b9 945v691y-38aa-0dfd-6i3l-5f791a5s05q2 ANSI-Commercial a5kf1737-64j0-26h0-10c7-3c48803vlx38 y6uk6532-26x8-69k3-85y0-9r22742enq71 ANSI-Commercial i957554q-74na-3395-0i86-82az4k2a62ke o551460i-19gj-5523-4g80-88kr0p3x63hv ANSI-Not a Secondary Insurance 7f2l8022-v1n1-3en2-p89v-7iu67 8yy6d46 0m9i1486-v6y0-6zz9-u81r-5wi884qy0q28 ANSI-Commercial 973y07u1-5gxh-16y1-v22v-9thv7166x713 620z80s6-8mbs-14g1-e82m-4lhv5785q426 ANSI-Not a Secondary Insurance g4z2086r-7jg2-766j-1co5-18qjy 8f79qff m0r4125z-1oj3-185c-0mo1-79xjq3f26owb ANSI-Commercial 2cao839v-s486-85j9-s924-22x380678437 4tzx628w-i804-86a1-x421-82j813400853 ANSI-Not a Secondary Insurance 3w77nc02-q869-2791-1093-612j5 741m8r5 8h53pp35-o724-2215-7152-623b1766l2s6 ANSI-Commercial 76bi8zq7-1x98-7gb0-0186-2fdj8j0444am 62oh2sq8-7k24-9dc0-5216-2ers3y4456mf ANSI-Not a Secondary Insurance 78iu0073-71j6-17yl-a771-i791h m9872y3 54qq5455-71c7-91kz-b335-p704hf1299b2 ANSI-Commercial p8m54662-0sg3-3351-8u40-5sp55439i11i u5j74831-8va9-3725-1m65-5uw96678k25a ANSI-Not a Secondary Insurance y364a064-me44-9nbt-943s-0w089 zix6y2b z333b520-ti64-2zay-676q-2n625bek8j0q ANSI-Commercial 2ey7iu63-c5j1-85ar-n65j-50b4183xg0ev 0ff5ua71-p2o0-21dn-b47m-11n0483dk0cf ANSI-Not a Secondary Insurance 5u12d4ka-7p78-6r27-63s1-b25l5 9luew66 5w76v5sk-1y92-9q35-95s6-s88i02fhdj03 ANSI-Not a Secondary Insurance 9ijyo8s5-3p66-3fj5-bx8e-291s5 634u5r1 1vogk9o7-3d94-3of9-wp4p-147x3650e3e1 ANSI-Commercial n932x5od-88o7-040p-9485-b8ud8v6ai3x7 b872g6yp-14k4-327q-2318-y1ui1p2fh9y3 ANSI-Commercial s2p8l482-2733-11r3-78gq-3u72d3or180m l1v6i276-6823-55k0-54ll-8h72y4ze129d ANSI-Not a Secondary Insurance 5998y057-5483-1v19-6poi-o0p20 g8263jt 4192s577-7542-9i73-5mwh-g7r24e5060os ANSI-Commercial 60372416-u504-3612-sc30-xhu3c6302094 97640920-o385-9530-xo82-sse0r8637118 ANSI-Not a Secondary Insurance 47h077un-w378-77yu-t8bk-9zh20 1feaaac 51g902sb-x973-37ai-x0sv-7qt088kgehym ANSI-Not a Secondary Insurance 27c08y03-i0um-1065-5qr3-6947k 23717l8 46f03p22-y0wc-4108-0fj5-9239s47889m4 ANSI-Commercial 03h4p7v7-489w-6k78-00oe-356umk2sv295 87e6m5x3-317o-4b08-21hp-098ufo6sx606 ANSI-Not a Secondary Insurance 56vm8fwa-pf88-2077-yy5e-8p9r4 9f3t76d 59pm3kdu-zl19-8813-hv5j-8l5e41s7t81w ANSI-Commercial 6u8v1fr2-99g5-74gi-gd82-614345jo8e6q 2w4a1wj0-17k3-64zq-kr24-286769ti7k6l ANSI-Commercial pfq91850-jf79-2p16-3436-7r34ygrlez20 pjt55957-cr57-5c06-2275-8v22wuntwr78 ANSI-Not a Secondary Insurance k37r8xk0-1p9q-57l9-g9im-zpe45 082115j s12o1bq9-9p0d-13u1-j7if-vrn40513288b ANSI-Not a Secondary Insurance vv9116cv-14q1-2g45-2ith-04537 7906302 ms4301zk-03e4-8d20-9zxd-159692111381 ANSI-Commercial y6t7f186-5r67-0024-n257-0j82b4t788uu s0o5k480-9w97-1709-m565-2f61r0e076tg ANSI-Not a Secondary Insurance 0j0ou4n3-7031-1107-880w-111cp r89071w 6j1iu1r9-2465-5854-437d-192gvi67851c ANSI-Commercial 649g195d-4159-9923-053b-06o916nsv7p6 544j157v-4398-6296-807y-64f865pdm1y0 ANSI-Not a Secondary Insurance 34722269-h55m-3jd8-lx9y-8l69g 1g00ta5 70735305-n75j-6ak3-te2v-7h29k9j46pp6 ANSI-Commercial k090y407-a4d5-8wc9-80e6-0bx78d664pk1 d198f793-a6z6-4wa9-71o4-5qr39g636kt1 ANSI-Not a Secondary Insurance x43i8n9x-30e8-195h-a0q4-31030 r39xy1j z20z5t1c-58z2-013n-n0n6-34987x42mb0c ANSI-Commercial 0d9zf2m2-u4h4-1757-ea79-pe815370p2fv 8f0be5d6-o6v3-9953-fg09-ds536186r5us ANSI-Commercial 8kkm237y-t0o7-06wx-af80-z3jweerp4413 7mun850v-l9p9-45qs-um64-b9rtxsus3541 ANSI-Not a Secondary Insurance 71250916-e836-7740-myj9-4i40i pg877a8 08494391-i767-6901-npo6-2k92whn236a6 ANSI-Not a Secondary Insurance 4404cgt4-atal-41f7-6132-z2cj3 8q526z9 9275jtr8-ilrb-36t7-1302-z8wb81l907b8 ANSI-Commercial b5dp59c4-541q-08z0-n8c3-146000275880 y3zi47y1-254o-25y2-k1s3-134214050168 ANSI-Not a Secondary Insurance 7168gyc5-8uwj-45h8-1o6e-4c3n6 09t4029 3899tvl8-2thg-76f4-6k8a-3i8w192a1061 ANSI-Commercial lk0wfks5-1bti-31dj-qoie-412a6di0vz51 xo6vmdp1-4wij-90nj-kgic-986k8ri5pw73 ANSI-Commercial m64a6357-30i8-231f-49dc-04f8do5q6119 o08w8317-02s9-242x-48oo-26j5kj5v1667 ANSI-Not a Secondary Insurance r48z8x9n-uads-56mz-4b6z-g2sl5 4b1g947 y86l0p5c-pqyb-19mw-4f0t-v9nu36c8c718 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 O [id number] O [id number] ANSI-Not a Secondary Insurance 93ys0846-21s3-4c0n-v1t5-1wbu5 r545569 96xm7931-45g6-9i6u-r3y2-5dzj4b028168 ANSI-Commercial mxm3v674-afot-9e98-998k-666729645jy4 vst4f034-omgb-1s03-944d-764153907hl4 ANSI-Not a Secondary Insurance 06q7qe8s-7g96-004d-0oe6-2gf8j 3qis360 92k6nv5x-0y98-288h-7wm5-3og5s1sel631 ANSI-Commercial 833eh7y4-e452-2075-766n-23122j1ipi34 828xw7v7-i566-2597-381a-86413z4qbz45 ANSI-Commercial x509v996-b5hu-35x0-l50h-l5p73166wmc1 r800x847-r7gt-31f2-l51t-m9v47248qqe7 ANSI-Not a Secondary Insurance rb8s4dd9-v010-1483-0pk1-52y61 60d1lct mv5g7xu9-z442-9711-1wf6-38r0806v6pkt ANSI-Commercial t211l87t-9809-9j31-v8j0-3db8cl7289u4 p236q23g-3448-3r16-a5m4-1qi3sp7674q0 ANSI-Not a Secondary Insurance 28c5gz5x-z1a8-252a-7r9k-15gj7 7537497 43u3qa1x-d5n6-117l-3q9l-41pg71271321 ANSI-Commercial 148at128-2012-3287-mx8u-v37931f0mr22 883qc477-6225-8199-dc6z-w87040i8sq96 ANSI-Not a Secondary Insurance 18146kxc-5wyv-561s-45b9-3i79g weo0fq2 72515jcv-0qss-402e-11h4-8v20bmkt6dd5 ANSI-Commercial 3l40l08p-f23d-1rz3-407p-0l275h8r7327 4w49a14l-y99v-7ie4-605a-6a168t8c5679 ANSI-Not a Secondary Insurance 194g5681-9v50-70xs-c6bv-59m35 489ebec 522s6061-9y22-00rh-f5mj-58s98734euif ANSI-Not a Secondary Insurance 88557525-v1u9-6ac1-il8t-0e365 q2q687a 60733738-w8l7-1ei7-ef9x-7t369b9q429q ANSI-Commercial 5yfd62ky-7rp3-014u-cz29-738444e9s9lu 6fmq70vg-0zt4-253m-ha50-675369j1k2er ANSI-Not a Secondary Insurance 4n16y293-ic68-945m-5t56-34adb 7v47b7w 4o85s955-tr14-313q-8g68-79tua8x77p0z ANSI-Commercial gku5132p-x644-93xe-9lc2-s45wzhcr4t9y ltv7945d-w911-58qn-9kh2-x75tdehn0r0x ANSI-Commercial 24jl2268-2z0n-0die-il8n-g9d9e5k5h0wh 86gc3434-1p7z-4rlh-is0i-d5t7z6r1p3tu ANSI-Not a Secondary Insurance 7t2yq126-2s0m-828j-5z34-9d6p3 4q26673 7y6px352-5v1h-436g-5a78-5z0b29s00472 ANSI-Commercial 67at7c70-4994-8ag2-0y4r-5732p90tn587 63jo6e64-1139-8ui3-4t0w-3183n67bq821 ANSI-Not a Secondary Insurance f9qe85w0-zqf7-8g2g-c642-lg5zp 6hsf1vz e6on14f0-awv9-6q6o-r964-uq1sm7zsu2bu ANSI-Commercial 4u4u00zv-6oez-378h-kg3k-24x4857k9h2s 5p1p75ok-0paq-637o-wj8m-87i6774i2y6k ANSI-Not a Secondary Insurance 8837895u-178z-4312-3v69-sa1w5 787ul00 8437400a-242x-8216-1v91-vx8c1979fu43 ANSI-Commercial del45n16-5e3g-79o4-m245-jfximwi86e89 jrj89m56-7y5a-46k8-u102-rwmcmjm92k78 ANSI-Not a Secondary Insurance 1z643eun-3d17-0hlv-h956-5x165 590s915 6m107edp-2e43-7whq-g390-2v636891e796 ANSI-Not a Secondary Insurance 3l4pqqlg-9jbp-0j5e-d6r3-j25ky 1725778 1v8knfrg-6sow-0b5w-m4o6-w59jq5683409 ANSI-Commercial 328m5c5m-976a-9x64-p31t-5318224m92f7 834c5w0a-547q-0d42-u96j-8935096d79w5 ANSI-Not a Secondary Insurance 4f8n7x0t-l429-79iu-31q4-8354y 64wqn41 5l2k7w0e-b612-89bx-40w0-9671t58ccl24 ANSI-Commercial 1533581x-c64z-3010-1mee-6055u8nl0v4u 0885695v-o25e-8562-7gfi-8112y1hs9b3z ANSI-Commercial fd8e944t-5cj2-4gt5-5f78-r8d48yr485v1 ht5s478s-6nv4-6vc7-4f18-j8p36qg186w1 ANSI-Not a Secondary Insurance 93d95us2-0f3d-2sv4-1w90-v7f0j mnum204 53i51al4-7v3e-3lu8-6f12-f2k7jvmtc195 ANSI-Not a Secondary Insurance 8696nb50-65v2-346h-2303-7v56z t27712m 1510ky76-88m5-107w-7238-6h26iy67466p ANSI-Commercial 80b1h8l2-7981-8q81-vu10-hh63x6315731 23o8x2p5-9665-1h47-xl99-eq27b1468415 ANSI-Not a Secondary Insurance 374jy50m-40ma-1g0i-5z57-1p94h 7b6p2x0 229iz75w-71rk-8d2r-5o33-9r02x0t1n1q5 ANSI-Commercial 3h82921x-4530-2305-j052-c1e2qaqm8ce2 8w33459x-2099-2900-c113-g4m6pwsd9lt2 [facility] [id number] S MMF [id number] ANSI-Commercial 05qqu91r-6407-3561-6183-9ia9mm5x1783 48jjx00s-2973-4756-6850-7jg3dc0p0744 ANSI-Not a Secondary Insurance v9102edb-6m29-9331-9sx2-m236b 6ybe26v r2832phk-7l39-7483-7zw1-v276f1sqf57x ANSI-Not a Secondary Insurance 09g80192-24w7-8960-21v6-10383 i4tyqf6 73q65214-21g1-8932-02y3-45115j9agrq7 ANSI-Commercial jl11n6gh-487t-92i8-77k7-d01umnmpz15q ar35p1ed-046e-39t9-90p9-j62gdswyq90u ANSI-Not a Secondary Insurance kuz6293i-6y32-2503-t5a5-m4908 4h79szk owm5442e-5k05-7966-n2f0-v53330s36joi ANSI-Commercial 635a868x-7r5l-457f-bm5d-11y06zt01ow3 790w467m-0u7d-340n-ww3u-20m60jz29iv0 ANSI-Not a Secondary Insurance q146mlmi-nn6z-157m-6t80-40f8z 3hy45d5 i985qpbu-ur2n-135x-2q17-15z0k9sy63j1 ANSI-Commercial v65vu7q3-rxew-975w-qwv0-q286717690s5 b81yi9m1-zhoc-263y-kiu4-r555234957a1 ANSI-Not a Secondary Insurance m027taa2-12ie-80y6-gb6o-07331 1iawn6x g517ixe8-97ll-82p1-gk0p-994167ubxj3i ANSI-Commercial sj0ux60t-6hj1-0526-c552-0kkq4717949k gb4rw98k-9tc4-0235-k375-5xeb8959202o ANSI-Commercial 210751c3-0f97-66mu-2b03-bp77u281m8b5 869633g7-9j05-57uc-3e46-aw03m463r9p1 ANSI-Not a Secondary Insurance 411v93cb-3q23-094t-1l4n-23353 6012u8k 227m26uf-8c73-911g-1f7p-996592710p3t ANSI-Not a Secondary Insurance wk995513-r627-23pf-f532-887hg 78u483u zq907659-h599-72ku-f194-079wr86g233i ANSI-Commercial qdi53v90-5831-50q9-rj67-xsm45q463694 svn94c56-6435-68s6-gx90-uob83b036336 ANSI-Not a Secondary Insurance n28c67id-a70q-000z-680u-9x238 h1f1040 l79y50eo-f94t-783k-935q-9m849j6s1681 ANSI-Commercial keq89xy5-ju51-7486-88xf-750f36e899w7 nip70ly9-tf07-0206-98ry-576y96o068o9 ANSI-Commercial jq9w5xjf-v9ad-9253-68z0-tf2e8s190j2z jj2l0ihs-w7lv-8754-13k6-wz4w8w264a3c ANSI-Not a Secondary Insurance 949b6492-374x-9090-x1s2-036bk 1b2g2v3 468r4900-318g-8251-d4h0-483wt1e2x5r8 TRAVELERS- [id number] SP [id number] ANSI-Not a Secondary Insurance r2p800f3-xe3r-0z70-6217-30d6u 20t051y i7y062c2-sr0r-4j42-3049-66v4x86l286e ANSI-Commercial 2176229z-829i-87jh-pxw3-ubg36v1a9p15 4684306s-481c-97or-loi0-nur85t9i9i24 ANSI-Commercial num5o373-26r9-3six-v5te-n6w42j6043ff rut2a031-18o8-7rcc-j2ec-o3q06y1347ym ANSI-Not a Secondary Insurance u5m68490-6s85-211h-08v3-5780q u791ue2 b7m45751-7q50-466n-48q1-6660yf619va7 ANSI-Not a Secondary Insurance 02t21372-8914-521m-3116-5k12i 92x217d 97o65255-1802-954y-9027-9g73u40n149z ANSI-Commercial 5zplp063-a282-2640-0531-5210229kn716 1asql521-d914-7954-6499-9996755wi093 OTHER WORKERS COMPENSATI O WCB#[id number] S WCB#[id number] ANSI-Not a Secondary Insurance x046r227-y4x9-4q46-lq97-81026 0756ebf h349n586-a3l8-5g18-dk13-236641959xqz ANSI-Commercial 19033h69-o5x7-7o54-063u-354585x9026x 02354a56-v1c9-6q74-474r-321818c1960b ANSI-Commercial 55594068-c0zh-13q2-44jz-rl0j8pmh3087 35416277-o1ob-79d6-59zf-vy6p6wgz3076 ANSI-Not a Secondary Insurance 01n5ol56-1t3j-8902-3204-5708s 11mb8u0 25c9ic49-0s1j-9085-2156-0834b47ax9g3 OTHER WORKERS COMPENSATI O WCB#[id number] S WCB#[id number] TRAVELERS- WCB# [id number] SP WCB # [id number] 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 [id number] BS [employer] Part B [id number] Self [id number] Travelers Insurance (WC) Workers Compensation [id number] Self [id number] 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 [id number] SP [id number] 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 [id number] SP [id number] [place] PPO 302/307 [id number] SP [id number] [place] 302/307 [id number] SP [id number] [place] 302/307 [id number] SP [id number] BS Of [facility] Maintenance Organization ([facility] [place] Self EXCELLUS BCBS B [id number] S VYS [id number] BCBS [place] 304/804 [id number] SP [id number] EXCELLUS H [id number] Self [id number] BLUE CROSS BLUE SHIELD[employer]CLINIC [id number] 18 [id number] BCBS [place] 304/804 [id number] SP [id number] SELF PAY 5 UNAVAILABLE 1 UNAVAILA BLE BLUE CROSS BLUE SHIELD-O/P [id number] 18 [id number] BCBS OF [place] 306/8 P [id number] S [id number] Problems, Conditions, and Diagnoses Code Display Name Description Problem Type Effective Dates Data Source(s) F51.01 4917625 Primary insomnia Problem 01/28/2020 12:00:00 AM EST eCW1 ([facility]ly [facility]) F41.0 113500621 Panic disorder Problem 12/24/2019 12:00:00 A M EST eCW1 ([facility]) F41.9 51919441 Anxiety Problem 12/23/2019 12:00:00 AM ES T eCW1 ([facility]) 64239436 Cervical radiculopathy Cervical radiculopathy Problem 08/26/2019 12:00:00 AM EDT [facility] ([facility], ) 446026817 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 Problem 08/26/2019 12:00:00 AM EDT [facility] ([facility] ) 14492021 Neck pain Neck pain Problem 08/26/2019 12:00:00 AM ED T [facility] ([facility]) 770266850 Essential tremor Essential tremor Problem 08/26/2019 12 :00:00 AM EDT [facility] ([facility]) R25.1 886654159 Tremor of both hands Problem 08/25/2019 12:0 0:00 AM EDT eCW1 ([facility]) F41.9 [id number] Anxiety Problem 08/04/2019 12:00:00 AM ED T eCW1 ([facility]) M46.1 [id number] Bilateral sacroiliitis Problem 05/28/2019 12:00:00 AM EDT eCW1 ([facility]) M54.5 [id number] Low back pain Problem 05/28/2019 12:00:00 AM EDT eCW1 ([facility]) M54.5 [id number] Low back pain Problem 05/28/2019 12:00:00 AM EDT eCW1 ([facility]) M46.1 [id number] Bilateral sacroiliitis Problem 05/28/2019 12:00:00 AM EDT eCW1 ([facility]) M46.1 [id number] Sacroiliitis Problem 04/21/2019 12:00:00 AM EDT eCW1 ([facility]) E78.00 [id number] Pure hypercholesterolemia Problem 03/26/2019 12:00:00 AM EST eCW1 ([facility]) J44.9 [id number] Chronic obstructive pulmonary di sease, unspecified COPD type Problem 03/26/2019 12:00:00 AM EST eCW1 (Pending sale to [facility]) E78.00 [id number] Pure hypercholesterolemia Problem 03/26/2019 12:00:00 AM EST eCW1 ([facility]) J44.9 [id number] Chronic obstructive pulmonary di sease, unspecified COPD type Problem 03/26/2019 12:00:00 AM EST eCW1 (Pending sale to [facility]) M75.41 Impingement syndrome of right shoulder I mpingement syndrome of right shoulder Diagnosis 04/01/2019 10:41:11 AM [facility] 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, 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, right upper limb Diagnosis 04/01/2019 10:41:11 AM [facility] Surgeries/Procedures Procedure Description Date Indications Data Source(s) Immunization: Flublok Quadrivalent (18 years & older) 0.5mL IM (Influenza) 01/15/2020 12:00:00 AM EST eCW1 (Pending sale to [facility]) INJ TRIGGER POINT 1/2 MUSCL 06/24/2019 12:00:00 AM EDT eCW1 ([facility]ly [facility]) PHYSICIAN TELEPHONE EVALUATION 11-20 MIN 06/12/2019 12 :00:00 AM EDT eCW1 (Formerly [facility]) ESTABILISHED PATIENT [facility] FACILITY CHARGE 020 12:00:00 AM EDT eCW1 (Formerly [facility]) SURGERY CASE REQUEST OUTSIDE FACILITY ONLY SURGERY CA SE REQUEST OUTSIDE FACILITY ONLY Routine 04/01/2019 11:37 AM EST Cubital tunnel syndrome on right 04/01/2019 04:37:19 PM EST Cubital tunnel syndrome on right [facility] Cubital tunnel syndrome on right Lumbar/Sacral w/ Imaging 03/25/2019 12:00:00 AM EST eCW1 ([facility]ly [facility]) RADXPS IN END [id number] PXD 03/25/2019 12:00:00 AM ES T eCW1 ([facility]) Results ID Date Data Source [id number] 02/29/2020 05:49:00 PM EST [facility] Name Value Range Interpretation Code Description Data Abbey rce(s) Supporting Document(s) SARS-CoV-2 (COVID 19) NEGATIVE - SARS-CoV-2 (COVID19) [facility] This lab was ordered by [facility] a nd reported by [facility]. ID Date Data Source Comprehensive Metabolic Profile (CMP) 12/18/2019 08:27:18 AM EST eCW1 ([facility]) Name Value Range Interpretation Code Description Data Abbey rce(s) Supporting Document(s) 92 GLUCOSE, FASTING eCW1 ([facility]) 15 BLOOD UREA NITROGEN eCW1 ([facility]) 1.01 CREATININE FOR GFR eCW1 ([facility]) 102 CHLORIDE LEVEL eCW1 ([facility]) 135 SODIUM LEVEL eCW1 ([facility]) 5.2 POTASSIUM SERUM eCW1 ([facility]) > 60.0 GLOMERULAR FILTRATION RATE eCW 1 ([facility]) 28 CARBON DIOXIDE LEVEL eCW1 ([facility]) 14 ALT/SGPT eCW1 ([facility]) 9 AST/SGOT eCW1 ([facility]) 9.5 CALCIUM LEVEL eCW1 ([facility]) 7.5 TOTAL PROTEIN eCW1 ([facility]) 0.3 BILIRUBIN,TOTAL eCW1 ([facility]) 101 ALKALINE PHOSPHATASE eCW1 ([facility]) 4.3 ALBUMIN eCW1 ([facility]) 1.3 ALBUMIN/GLOBULIN RATIO eCW1 ([facility]) ID Date Data Source [id number] 12/06/2019 10:45:00 AM EDT [facility] Name Value Range Interpretation Code Description Data Abbey rce(s) Supporting Document(s) SARS coronavirus 2 RNA [facility] This lab was ordered by [facility] and reported by [facility]. ID Date Data Source [facility] FLUORO GUIDE SPINE INJECTION (PAIN) 11/12/2019 05:47:51 AM EDT eCW1 ([facility]) Name Value Range Interpretation Code Description Data Abbey rce(s) Supporting Document(s) [facility] FLUORO GUIDE SPINE IN JECTION (PAIN) eCW1 ([facility]) ID Date Data Source [id number] 11/07/2019 10:00:00 AM EDT [facility] Name Value Range Interpretation Code Description Data Abbey rce(s) Supporting Document(s) SARS coronavirus 2 RNA [facility] This lab was ordered by [facility] and reported by [facility]. ID Date Data Source [id number] 07/11/2019 11:25:00 AM EDT [facility] Name Value Range Interpretation Code Description Data Abbey rce(s) Supporting Document(s) SARS CORONAVIRUS 2 RNA [facility] This lab was ordered by [facility] and reported by [facility]. ID Date Data Source [id number] 04/04/2019 03:33:54 PM [facility] Name Value Range Interpretation Code Description Data Abbey rce(s) Supporting Document(s) Progress Note [facility] [id number] [facility] [file] [id number] Procedure Social History Code Duration Value Status Description Data Source(s ) Smoking 02/16/2020 12:00:00 AM EST Current Smoker completed Curre nt Smoker eCW1 ([facility]) Smoking 02/16/2020 12:00:00 AM EST Current Smoker completed Curre nt Smoker eCW1 ([facility]) Smoking 02/16/2020 12:00:00 AM EST Current Smoker completed Curre nt Smoker eCW1 ([facility]) Smoking 02/16/2020 12:00:00 AM EST Current Smoker completed Curre nt Smoker eCW1 ([facility]) Smoking 02/16/2020 12:00:00 AM EST Current Smoker completed Curre nt Smoker eCW1 ([facility]) Smoking 01/28/2020 12:00:00 AM EST Current Smoker completed Curre nt Smoker eCW1 ([facility]) Smoking 01/28/2020 12:00:00 AM EST Current Smoker completed Curre nt Smoker eCW1 ([facility]) Smoking 01/28/2020 12:00:00 AM EST Current Smoker completed Curre nt Smoker eCW1 ([facility]) Smoking 01/28/2020 12:00:00 AM EST Current Smoker completed Curre nt Smoker eCW1 ([facility]) Smoking 01/28/2020 12:00:00 AM EST Current Smoker completed Curre nt Smoker eCW1 ([facility]) Smoking 01/28/2020 12:00:00 AM EST Current Smoker completed Curre nt Smoker eCW1 ([facility]) Smoking 01/15/2020 12:00:00 AM EST Current Smoker completed Curre nt Smoker eCW1 ([facility]) Smoking 01/15/2020 12:00:00 AM EST Current Smoker completed Curre nt Smoker eCW1 ([facility]) Smoking 01/15/2020 12:00:00 AM EST Current Smoker completed Curre nt Smoker eCW1 ([facility]) Smoking 01/15/2020 12:00:00 AM EST Current Smoker completed Curre nt Smoker eCW1 ([facility]) Smoking 01/15/2020 12:00:00 AM EST Current Smoker completed Curre nt Smoker eCW1 ([facility]) Smoking 01/15/2020 12:00:00 AM EST Current Smoker completed Curre nt Smoker eCW1 ([facility]) Smoking 01/15/2020 12:00:00 AM EST Current Smoker completed Curre nt Smoker eCW1 ([facility]) Smoking 01/15/2020 12:00:00 AM EST Current Smoker completed Curre nt Smoker eCW1 ([facility]) Smoking 01/15/2020 12:00:00 AM EST Current Smoker completed Curre nt Smoker eCW1 ([facility]) Smoking 01/15/2020 12:00:00 AM EST Current Smoker completed Curre nt Smoker eCW1 ([facility]) Smoking 01/15/2020 12:00:00 AM EST Current Smoker completed Curre nt Smoker eCW1 ([facility]) Smoking 01/15/2020 12:00:00 AM EST Current Smoker completed Curre nt Smoker eCW1 ([facility]) Smoking 01/15/2020 12:00:00 AM EST Current Smoker completed Curre nt Smoker eCW1 ([facility]) Smoking 01/15/2020 12:00:00 AM EST Current Smoker completed Curre nt Smoker eCW1 ([facility]) Smoking 12/24/2019 12:00:00 AM EST Current Smoker completed Curre nt Smoker eCW1 ([facility]) Smoking 12/24/2019 12:00:00 AM EST Current Smoker completed Curre nt Smoker eCW1 ([facility]) Smoking 12/24/2019 12:00:00 AM EST Current Smoker completed Curre nt Smoker eCW1 ([facility]) Smoking 12/24/2019 12:00:00 AM EST Current Smoker completed Curre nt Smoker eCW1 ([facility]) Smoking 12/24/2019 12:00:00 AM EST Current Smoker completed Curre nt Smoker eCW1 ([facility]) Smoking 12/24/2019 12:00:00 AM EST Current Smoker completed Curre nt Smoker eCW1 ([facility]) Smoking 12/24/2019 12:00:00 AM EST Current Smoker completed Curre nt Smoker eCW1 ([facility]) Smoking 12/24/2019 12:00:00 AM EST Current Smoker completed Curre nt Smoker eCW1 ([facility]) Smoking 12/24/2019 12:00:00 AM EST Current Smoker completed Curre nt Smoker eCW1 ([facility]) Smoking 12/24/2019 12:00:00 AM EST Current Smoker completed Curre nt Smoker eCW1 (Formerly [facility]) Smoking 12/24/2019 12:00:00 AM EST Current Smoker completed Curre nt Smoker eCW1 ([facility]ly [facility]) Smoking 12/24/2019 12:00:00 AM EST Current Smoker completed Curre nt Smoker eCW1 ([facility]ly [facility]) Smoking 12/24/2019 12:00:00 AM EST Current Smoker completed Curre nt Smoker eCW1 ([facility]ly [facility]) Smoking 12/24/2019 12:00:00 AM EST Current Smoker completed Curre nt Smoker eCW1 ([facility]) Smoking 12/24/2019 12:00:00 AM EST Current Smoker completed Curre nt Smoker eCW1 ([facility]) Smoking 12/24/2019 12:00:00 AM EST Current Smoker completed Curre nt Smoker eCW1 ([facility]) Smoking 12/24/2019 12:00:00 AM EST Current Smoker completed Curre nt Smoker eCW1 ([facility]) Smoking 12/24/2019 12:00:00 AM EST Current Smoker completed Curre nt Smoker eCW1 ([facility]) Smoking 12/24/2019 12:00:00 AM EST Current Smoker completed Curre nt Smoker eCW1 ([facility]) Smoking 12/24/2019 12:00:00 AM EST Current Smoker completed Curre nt Smoker eCW1 ([facility]) Smoking 12/24/2019 12:00:00 AM EST Current Smoker completed Curre nt Smoker eCW1 ([facility]) Smoking 12/24/2019 12:00:00 AM EST Current Smoker completed Curre nt Smoker eCW1 ([facility]) Smoking 12/24/2019 12:00:00 AM EST Current Smoker completed Curre nt Smoker eCW1 ([facility]) Smoking 12/24/2019 12:00:00 AM EST Current Smoker completed Curre nt Smoker eCW1 ([facility]) Smoking 12/24/2019 12:00:00 AM EST Current Smoker completed Curre nt Smoker eCW1 ([facility]) Smoking 12/22/2019 12:00:00 AM EST Current Smoker completed Curre nt Smoker eCW1 ([facility]) Smoking 12/22/2019 12:00:00 AM EST Current Smoker completed Curre nt Smoker eCW1 ([facility]) Smoking 12/22/2019 12:00:00 AM EST Current Smoker completed Curre nt Smoker eCW1 ([facility]) Smoking 12/18/2019 12:00:00 AM EST Current Smoker completed Curre nt Smoker eCW1 ([facility]) Smoking 12/18/2019 12:00:00 AM EST Current Smoker completed Curre nt Smoker eCW1 ([facility]) Smoking 12/18/2019 12:00:00 AM EST Current Smoker completed Curre nt Smoker eCW1 ([facility]) Smoking 12/18/2019 12:00:00 AM EST Current Smoker completed Curre nt Smoker eCW1 ([facility]) Smoking 12/18/2019 12:00:00 AM EST Current Smoker completed Curre nt Smoker eCW1 ([facility]) Smoking 12/18/2019 12:00:00 AM EST Current Smoker completed Curre nt Smoker eCW1 ([facility]) Smoking 12/11/2019 12:00:00 AM EDT Current Smoker completed Curre nt Smoker eCW1 ([facility]) Smoking 12/11/2019 12:00:00 AM EDT Current Smoker completed Curre nt Smoker eCW1 ([facility]) Smoking 12/11/2019 12:00:00 AM EDT Current Smoker completed Curre nt Smoker eCW1 ([facility]) Smoking 12/11/2019 12:00:00 AM EDT Current Smoker completed Curre nt Smoker eCW1 ([facility]) Smoking 12/09/2019 12:00:00 AM EDT Current Smoker completed Curre nt Smoker eCW1 ([facility]) Smoking 11/30/2019 12:00:00 AM EDT Current Smoker completed Curre nt Smoker eCW1 ([facility]) Smoking 11/30/2019 12:00:00 AM EDT Current Smoker completed Curre nt Smoker eCW1 ([facility]) Smoking 11/30/2019 12:00:00 AM EDT Current Smoker completed Curre nt Smoker eCW1 ([facility]) Smoking 11/30/2019 12:00:00 AM EDT Current Smoker completed Curre nt Smoker eCW1 ([facility]) Smoking 11/30/2019 12:00:00 AM EDT Current Smoker completed Curre nt Smoker eCW1 ([facility]) Smoking 11/30/2019 12:00:00 AM EDT Current Smoker completed Curre nt Smoker eCW1 ([facility]) Smoking 11/24/2019 12:00:00 AM EDT Current Smoker completed Curre nt Smoker eCW1 ([facility]) Smoking 11/12/2019 12:00:00 AM EDT Current Smoker completed Curre nt Smoker eCW1 ([facility]) Smoking 11/12/2019 12:00:00 AM EDT Current Smoker completed Curre nt Smoker eCW1 ([facility]) Smoking 09/04/2019 12:00:00 AM EDT Current Smoker completed Curre nt Smoker eCW1 ([facility]) Smoking 09/04/2019 12:00:00 AM EDT Current Smoker completed Curre nt Smoker eCW1 ([facility]) Smoking 09/04/2019 12:00:00 AM EDT Current Smoker completed Curre nt Smoker eCW1 ([facility]) Smoking 09/04/2019 12:00:00 AM EDT Current Smoker completed Curre nt Smoker eCW1 ([facility]) Smoking 09/04/2019 12:00:00 AM EDT Current Smoker completed Curre nt Smoker eCW1 ([facility]) Smoking 09/04/2019 12:00:00 AM EDT Current Smoker completed Curre nt Smoker eCW1 ([facility]) Smoking 09/04/2019 12:00:00 AM EDT Current Smoker completed Curre nt Smoker eCW1 ([facility]) Smoking 08/31/2019 12:00:00 AM EDT Current Smoker completed Curre nt Smoker eCW1 ([facility]) Smoking 08/31/2019 12:00:00 AM EDT Current Smoker completed Curre nt Smoker eCW1 ([facility]) Smoking 08/31/2019 12:00:00 AM EDT Current Smoker completed Curre nt Smoker eCW1 ([facility]) Smoking 08/25/2019 12:00:00 AM EDT Current Smoker completed Curre nt Smoker eCW1 ([facility]) Smoking 08/25/2019 12:00:00 AM EDT Current Smoker completed Curre nt Smoker eCW1 ([facility]) Smoking 08/25/2019 12:00:00 AM EDT Current Smoker completed Curre nt Smoker eCW1 ([facility]) Smoking 08/25/2019 12:00:00 AM EDT Current Smoker completed Curre nt Smoker eCW1 ([facility]) Smoking 08/25/2019 12:00:00 AM EDT Current Smoker completed Curre nt Smoker eCW1 ([facility]) Smoking 08/04/2019 12:00:00 AM EDT Current Smoker completed Curre nt Smoker eCW1 ([facility]) Smoking 07/13/2019 12:00:00 AM EDT Current Smoker completed Curre nt Smoker eCW1 ([facility]) Smoking 07/13/2019 12:00:00 AM EDT Current Smoker completed Curre nt Smoker eCW1 ([facility]) Smoking 07/13/2019 12:00:00 AM EDT Current Smoker completed Curre nt Smoker eCW1 ([facility]) Smoking 07/13/2019 12:00:00 AM EDT Current Smoker completed Curre nt Smoker eCW1 (Formerly [facility]) Alcohol intake 04/04/2019 12:00:00 AM EST Current non-d alma of alcohol (finding) completed Current non-drinker of alcohol (finding) [facility] Cigarette pack-years 04/04/2019 12:00:00 AM EST [facility] Cigarettes smoked current (pack per day) - Reported 04/04/19 20 12:00:00 AM EST [facility] Smoking 04/04/2019 12:00:00 AM EST Current every day smoker co mpleted Current every day smoker [facility] Vital Signs ID Date Data Source UNK Name Value Range Interpretation Code Description Data Source(s) Diastolic blood pressure 84 mm[Hg] 84 mm[Hg] eCW1 ([facility]) Systolic blood pressure 130 mm[Hg] 130 mm[Hg] e CW1 ([facility]) Body temperature 97.5 [degF] 97.5 [degF] eCW1 ( [facility]) Respiratory rate 18 /min 18 /min eCW1 ([facility]) Heart rate 102 /min 102 /min eCW1 ([facility]) Body mass index (BMI) [Ratio] 23.03 kg/m2 23.03 kg/m2 W1 ([facility]) Body height 69 [in_i] 69 [in_i] eCW1 ([facility]) Body weight 156 [lb_av] 156 [lb_av] eCW1 ([facility]) Diastolic blood pressure 78 mm[Hg] 78 mm[Hg] eCW1 ([facility]) Systolic blood pressure 132 mm[Hg] 132 mm[Hg] e CW1 ([facility]) Body temperature 98.0 [degF] 98.0 [degF] eCW1 ( [facility]) Respiratory rate 18 /min 18 /min eCW1 ([facility]) Heart rate 99 /min 99 /min eCW1 ([facility]) Body mass index (BMI) [Ratio] 23.33 kg/m2 23.33 kg/m2 eCW1 ([facility]) Body height 69 [in_i] 69 [in_i] eCW1 ([facility]) Body weight 158 [lb_av] 158 [lb_av] eCW1 ([facility]) Diastolic blood pressure 90 mm[Hg] 90 mm[Hg] eCW1 ([facility]) Systolic blood pressure 140 mm[Hg] 140 mm[Hg] e CW1 ([facility]) Body temperature [degF] eCW1 ([facility]) Respiratory rate 18 /min 18 /min eCW1 ([facility]) Heart rate 112 /min 112 /min eCW1 ([facility]) Body mass index (BMI) [Ratio] 23.18 kg/m2 23.18 kg/m2 eCW1 ([facility]) Body height 69 [in_i] 69 [in_i] eCW1 ([facility]) Body weight 157 [lb_av] 157 [lb_av] eCW1 ([facility]) Diastolic blood pressure 80 mm[Hg] 80 mm[Hg] eCW1 ([facility]) Systolic blood pressure 130 mm[Hg] 130 mm[Hg] e CW1 ([facility]) Body temperature 98.2 [degF] 98.2 [degF] eCW1 ( [facility]) Respiratory rate 18 /min 18 /min eCW1 ([facility]) Heart rate 104 /min 104 /min eCW1 ([facility]) Body mass index (BMI) [Ratio] 23.45 kg/m2 23.45 kg/m2 eCW1 ([facility]) Body height 69 [in_i] 69 [in_i] eCW1 ([facility]) Body weight 158.8 [lb_av] 158.8 [lb_av] eCW1 ([facility]) Diastolic blood pressure 100 mm[Hg] 100 mm[Hg] eCW1 ([facility]) Systolic blood pressure 150 mm[Hg] 150 mm[Hg] e CW1 ([facility]) Body temperature 98.2 [degF] 98.2 [degF] eCW1 ( [facility]) Respiratory rate 18 /min 18 /min eCW1 ([facility]) Heart rate 92 /min 92 /min eCW1 ([facility]) Body mass index (BMI) [Ratio] 23.74 kg/m2 23.74 kg/m2 eCW1 ([facility]) Body height 69 [in_i] 69 [in_i] eCW1 ([facility]) Body weight 160.8 [lb_av] 160.8 [lb_av] eCW1 ([facility]) Diastolic blood pressure 98 mm[Hg] 98 mm[Hg] eCW1 ([facility]) Systolic blood pressure 146 mm[Hg] 146 mm[Hg] e CW1 ([facility]) Body temperature 97.6 [degF] 97.6 [degF] eCW1 ( [facility]) Respiratory rate 18 /min 18 /min eCW1 ([facility]) Heart rate 75 /min 75 /min eCW1 ([facility]) Body mass index (BMI) [Ratio] 23.86 kg/m2 23.86 kg/m2 eCW1 ([facility]) Body height 69 [in_i] 69 [in_i] eCW1 ([facility]) Body weight 161.6 [lb_av] 161.6 [lb_av] eCW1 ([facility]) Diastolic blood pressure 93 mm[Hg] 93 mm[Hg] eCW1 ([facility]) Systolic blood pressure 136 mm[Hg] 136 mm[Hg] e CW1 ([facility]) Body temperature 98.6 [degF] 98.6 [degF] eCW1 ( [facility]) Respiratory rate 16 /min 16 /min eCW1 ([facility]) Heart rate 69 /min 69 /min eCW1 ([facility]) Body mass index (BMI) [Ratio] 23.63 kg/m2 23.63 kg/m2 eCW1 ([facility]) Body height 69 [in_i] 69 [in_i] eCW1 ([facility]) Body weight 160 [lb_av] 160 [lb_av] eCW1 ([facility]) Diastolic blood pressure 96 mm[Hg] 96 mm[Hg] eCW1 ([facility]) Systolic blood pressure 148 mm[Hg] 148 mm[Hg] e CW1 ([facility]) Body temperature 98.3 [degF] 98.3 [degF] eCW1 ( [facility]) Respiratory rate 18 /min 18 /min eCW1 ([facility]) Heart rate 73 /min 73 /min eCW1 ([facility]) Body mass index (BMI) [Ratio] 23.42 kg/m2 23.42 kg/m2 eCW1 ([facility]) Body height 69 [in_i] 69 [in_i] eCW1 ([facility]) Body weight 158.6 [lb_av] 158.6 [lb_av] eCW1 ([facility]) Diastolic blood pressure 80 mm[Hg] 80 mm[Hg] eCW1 ([facility]) Systolic blood pressure 120 mm[Hg] 120 mm[Hg] e CW1 ([facility]) Body temperature 97.8 [degF] 97.8 [degF] eCW1 ( [facility]) Respiratory rate 18 /min 18 /min eCW1 ([facility]) Heart rate 103 /min 103 /min eCW1 ([facility]) Body mass index (BMI) [Ratio] 24.19 kg/m2 24.19 kg/m2 eCW1 ([facility]) Body height 69 [in_i] 69 [in_i] eCW1 ([facility]) Body weight 163.8 [lb_av] 163.8 [lb_av] eCW1 ([facility]) Diastolic blood pressure 84 mm[Hg] 84 mm[Hg] eCW1 ([facility]) Systolic blood pressure 198 mm[Hg] 198 mm[Hg] e CW1 ([facility]) Body temperature 97.0 [degF] 97.0 [degF] eCW1 ( [facility]) Respiratory rate 18 /min 18 /min eCW1 ([facility]) Heart rate 89 /min 89 /min eCW1 ([facility]) Body mass index (BMI) [Ratio] 24.25 kg/m2 24.25 kg/m2 eCW1 ([facility]) Body height 69 [in_i] 69 [in_i] eCW1 ([facility]) Body weight 164.2 [lb_av] 164.2 [lb_av] eCW1 ([facility]) Body mass index (BMI) [Ratio] 24.9 kg/m2 24.9 k g/m2 MEDENT ([facility], ) Body weight 164.00 [lb_av] 164.00 [lb_av] MEDEN T ([facility], ) Body height 68 [in_i] 68 [in_i] MEDENT ([facility], ) 5'8" Respiratory rate 14 /min 14 /min MEDENT ( [facility], ) Heart rate 78 /min 78 /min MEDENT ([facility], ) Diastolic blood pressure 80 mm[Hg] 80 mm[Hg] MEDENT ([facility], ) Systolic blood pressure 120 mm[Hg] 120 mm[Hg] M EDENT ([facility], ) Diastolic blood pressure 82 mm[Hg] 82 mm[Hg] eCW1 ([facility]) Systolic blood pressure 120 mm[Hg] 120 mm[Hg] e CW1 ([facility]) Body temperature 98 [degF] 98 [degF] eCW1 ([facility]) Respiratory rate 18 /min 18 /min eCW1 ([facility]) Heart rate 125 /min 125 /min eCW1 ([facility]) Body mass index (BMI) [Ratio] 24.19 kg/m2 24.19 kg/m2 eCW1 ([facility]) Body height 69 [in_i] 69 [in_i] eCW1 ([facility]) Body weight 163.8 [lb_av] 163.8 [lb_av] eCW1 ([facility]) Diastolic blood pressure 78 mm[Hg] 78 mm[Hg] eCW1 ([facility]) Systolic blood pressure 130 mm[Hg] 130 mm[Hg] e CW1 ([facility]) Body temperature 98.5 [degF] 98.5 [degF] eCW1 ( [facility]) Respiratory rate 18 /min 18 /min eCW1 ([facility]) Heart rate 102 /min 102 /min eCW1 ([facility]) Body mass index (BMI) [Ratio] 24.57 kg/m2 24.57 kg/m2 W1 ([facility]) Body height 69 [in_i] 69 [in_i] eCW1 ([facility]) Body weight 166.4 [lb_av] 166.4 [lb_av] eCW1 ([facility]) Diastolic blood pressure 70 mm[Hg] 70 mm[Hg] eCW1 ([facility]) Systolic blood pressure 110 mm[Hg] 110 mm[Hg] e CW1 ([facility]) Body temperature 97.3 [degF] 97.3 [degF] eCW1 ( [facility]) Respiratory rate 18 /min 18 /min eCW1 ([facility]) Heart rate 107 /min 107 /min eCW1 ([facility]) Body mass index (BMI) [Ratio] 24.22 kg/m2 24.22 kg/m2 eCW1 ([facility]) Body height 69 [in_i] 69 [in_i] eCW1 ([facility]) Body weight 164 [lb_av] 164 [lb_av] eCW1 ([facility]) Diastolic blood pressure 85 mm[Hg] 85 mm[Hg] eCW1 ([facility]) Systolic blood pressure 112 mm[Hg] 112 mm[Hg] e CW1 ([facility]) Body temperature 98.3 [degF] 98.3 [degF] eCW1 ( [facility]) Respiratory rate 18 /min 18 /min eCW1 ([facility]) Heart rate 107 /min 107 /min eCW1 ([facility]) Body mass index (BMI) [Ratio] 23.95 kg/m2 23.95 kg/m2 eCW1 ([facility]) Body height 69 [in_i] 69 [in_i] eCW1 ([facility]) Body weight 162.2 [lb_av] 162.2 [lb_av] eCW1 ([facility]) Diastolic blood pressure 88 mm[Hg] 88 mm[Hg] eCW1 ([facility]) Systolic blood pressure 135 mm[Hg] 135 mm[Hg] e CW1 ([facility]) Body temperature 97.5 [degF] 97.5 [degF] eCW1 ( [facility]) Respiratory rate 18 /min 18 /min eCW1 ([facility]) Heart rate 86 /min 86 /min eCW1 ([facility]) Body mass index (BMI) [Ratio] 24.22 kg/m2 24.22 kg/m2 eCW1 ([facility]) Body height 69 [in_us] 69 [in_us] eCW1 ([facility]) Body weight Measured 164 [lb_av] 164 [lb_av] eC W1 ([facility]) Diastolic blood pressure 86 mm[Hg] 86 mm[Hg] eCW1 ([facility]) Systolic blood pressure 131 mm[Hg] 131 mm[Hg] e CW1 ([facility]) Body temperature 97.9 [degF] 97.9 [degF] eCW1 ( [facility]) Respiratory rate 16 /min 16 /min eCW1 ([facility]) Heart rate 93 /min 93 /min eCW1 ([facility]) Body mass index (BMI) [Ratio] 24.22 kg/m2 24.22 kg/m2 eCW1 ([facility]) Body height 69 [in_us] 69 [in_us] eCW1 ([facility]) Body weight Measured 164 [lb_av] 164 [lb_av] eC W1 ([facility]) Diastolic blood pressure 94 mm[Hg] 94 mm[Hg] eCW1 ([facility]) Systolic blood pressure 137 mm[Hg] 137 mm[Hg] e CW1 ([facility]) Body temperature 98.5 [degF] 98.5 [degF] eCW1 ( [facility]) Respiratory rate 16 /min 16 /min eCW1 ([facility]) Heart rate 90 /min 90 /min eCW1 ([facility]) Body mass index (BMI) [Ratio] 24.22 kg/m2 24.22 kg/m2 eCW1 ([facility]) Body height 69 [in_us] 69 [in_us] eCW1 ([facility]) Body weight Measured 164 [lb_av] 164 [lb_av] eC W1 ([facility]) Diastolic blood pressure 76 mm[Hg] 76 mm[Hg] eCW1 ([facility]) Systolic blood pressure 132 mm[Hg] 132 mm[Hg] e CW1 ([facility]) Body temperature 97.9 [degF] 97.9 [degF] eCW1 ( [facility]) Respiratory rate 18 /min 18 /min eCW1 ([facility]) Heart rate 81 /min 81 /min eCW1 ([facility]) Body mass index (BMI) [Ratio] 24.36 kg/m2 24.36 kg/m2 eCW1 ([facility]) Body height 69 [in_us] 69 [in_us] eCW1 ([facility]) Body weight Measured 165 [lb_av] 165 [lb_av] eC W1 ([facility]) Diastolic blood pressure 86 mm[Hg] 86 mm[Hg] eCW1 ([facility]) Systolic blood pressure 138 mm[Hg] 138 mm[Hg] e CW1 ([facility]) Body temperature 97.1 [degF] 97.1 [degF] eCW1 ( [facility]) Respiratory rate 18 /min 18 /min eCW1 ([facility]) Heart rate 77 /min 77 /min eCW1 ([facility]) Body mass index (BMI) [Ratio] 24.36 kg/m2 24.36 kg/m2 eCW1 ([facility]) Body height 69 [in_us] 69 [in_us] eCW1 ([facility]) Body weight Measured 165.0 [lb_av] 165.0 [lb_av ] eCW1 ([facility]) Diastolic blood pressure 91 mm[Hg] 91 mm[Hg] eCW1 ([facility]) Systolic blood pressure 145 mm[Hg] 145 mm[Hg] e CW1 ([facility]) Body temperature 97.9 [degF] 97.9 [degF] eCW1 ( [facility]) Respiratory rate 18 /min 18 /min eCW1 ([facility]) Heart rate 76 /min 76 /min eCW1 ([facility]) Body mass index (BMI) [Ratio] 24.13 kg/m2 24.13 kg/m2 eCW1 ([facility]) Body height 69 [in_us] 69 [in_us] eCW1 ([facility]) Body weight Measured 163.4 [lb_av] 163.4 [lb_av ] eCW1 ([facility]) Diastolic blood pressure 101 mm[Hg] 101 mm[Hg] eCW1 ([facility]) Systolic blood pressure 141 mm[Hg] 141 mm[Hg] e CW1 ([facility]) Body temperature 97.9 [degF] 97.9 [degF] eCW1 ( [facility]) Respiratory rate 18 /min 18 /min eCW1 ([facility]) Heart rate 82 /min 82 /min eCW1 ([facility]) Body mass index (BMI) [Ratio] 24.13 kg/m2 24.13 kg/m2 eCW1 ([facility]) Body height 69 [in_us] 69 [in_us] eCW1 ([facility]) Body weight Measured 163.4 [lb_av] 163.4 [lb_av ] eCW1 ([facility]) ID Date Data Source [id number] 06/01/2019 11:45:02 AM [facility] Name Value Range Interpretation Code Description Data Source(s) WEIGHT RECORDED 165 lb 165 lb [facility] Body height Measured 69 in 69 in [facility] Patient Treatment Plan of Care Planned Activity Planned Date Details Description Data Source (s) Morphine Sulfate 15 MG Oral Tablet 02/23/2020 12:00:00 AM EST eCW1 ([facility]) Acetaminophen 325 MG / Oxycodone Hydrochloride 10 MG O ral Tablet [Percocet] 02/23/2020 12:00:00 AM EST eCW1 ([facility]) Morphine Sulfate 15 MG Oral Tablet 02/23/2020 12:00:00 AM EST eCW1 ([facility]) Acetaminophen 325 MG / Oxycodone Hydrochloride 10 MG O ral Tablet [Percocet] 02/23/2020 12:00:00 AM EST eCW1 ([facility]) Morphine Sulfate 15 MG Oral Tablet 02/23/2020 12:00:00 AM EST eCW1 ([facility]) Acetaminophen 325 MG / Oxycodone Hydrochloride 10 MG O ral Tablet [Percocet] 02/23/2020 12:00:00 AM EST eCW1 ([facility]) Morphine Sulfate 15 MG Oral Tablet 02/23/2020 12:00:00 AM EST eCW1 ([facility]) Acetaminophen 325 MG / Oxycodone Hydrochloride 10 MG O ral Tablet [Percocet] 02/23/2020 12:00:00 AM EST eCW1 ([facility]) Morphine Sulfate 15 MG Oral Tablet 02/23/2020 12:00:00 AM EST eCW1 ([facility]) Acetaminophen 325 MG / Oxycodone Hydrochloride 10 MG O ral Tablet [Percocet] 02/23/2020 12:00:00 AM EST eCW1 ([facility]) Budesonide 180 MCG/ACT 02/16/2020 12:00:00 AM EST eCW1 ([facility]) Budesonide 180 MCG/ACT 02/16/2020 12:00:00 AM EST eCW1 ([facility]) Budesonide 180 MCG/ACT 02/16/2020 12:00:00 AM EST eCW1 ([facility]) Budesonide 180 MCG/ACT 02/16/2020 12:00:00 AM EST eCW1 ([facility]) Budesonide 180 MCG/ACT 02/16/2020 12:00:00 AM EST eCW1 ([facility]) Albuterol 0.833 MG/ML / Ipratropium [place] 0.167 MG/M L Inhalant Solution 01/28/2020 12:00:00 AM EST eCW1 ([facility]) Albuterol 0.833 MG/ML / Ipratropium [place] 0.167 MG/M L Inhalant Solution 01/28/2020 12:00:00 AM EST eCW1 ([facility]) Albuterol 0.833 MG/ML / Ipratropium [place] 0.167 MG/M L Inhalant Solution 01/28/2020 12:00:00 AM EST eCW1 ([facility]) Albuterol 0.833 MG/ML / Ipratropium [place] 0.167 MG/M L Inhalant Solution 01/28/2020 12:00:00 AM EST eCW1 ([facility]) Albuterol 0.833 MG/ML / Ipratropium [place] 0.167 MG/M L Inhalant Solution 01/28/2020 12:00:00 AM EST eCW1 ([facility]) Albuterol 0.833 MG/ML / Ipratropium [place] 0.167 MG/M L Inhalant Solution 01/28/2020 12:00:00 AM EST eCW1 ([facility]) Morphine Sulfate ER 15 MG 01/27/2020 12:00:00 AM EST eCW1 ([facility]) Morphine Sulfate 15 MG Extended Release Oral Tablet 01/27/20 12:00:00 AM EST eCW1 ([facility]) Morphine Sulfate 15 MG Oral Tablet 01/27/2020 12:00:00 AM EST eCW1 ([facility]) Morphine Sulfate ER 15 MG 01/27/2020 12:00:00 AM EST eCW1 ([facility]) Morphine Sulfate 15 MG Extended Release Oral Tablet 01/27/20 12:00:00 AM EST eCW1 ([facility]) Morphine Sulfate 15 MG Oral Tablet 01/27/2020 12:00:00 AM EST eCW1 ([facility]) Morphine Sulfate ER 15 MG 01/26/2020 12:00:00 AM EST eCW1 ([facility]) Acetaminophen 325 MG / Oxycodone Hydrochloride 10 MG O ral Tablet [Percocet] 01/22/2020 12:00:00 AM EST eCW1 ([facility]) Acetaminophen 325 MG / Oxycodone Hydrochloride 10 MG O ral Tablet [Percocet] 01/22/2020 12:00:00 AM EST eCW1 ([facility]) Acetaminophen 325 MG / Oxycodone Hydrochloride 10 MG O ral Tablet [Percocet] 01/22/2020 12:00:00 AM EST eCW1 ([facility]) Acetaminophen 325 MG / Oxycodone Hydrochloride 10 MG O ral Tablet [Percocet] 01/22/2020 12:00:00 AM EST eCW1 ([facility]) Acetaminophen 325 MG / Oxycodone Hydrochloride 10 MG O ral Tablet [Percocet] 01/22/2020 12:00:00 AM EST eCW1 ([facility]) Acetaminophen 325 MG / Oxycodone Hydrochloride 10 MG O ral Tablet [Percocet] 01/22/2020 12:00:00 AM EST eCW1 ([facility]) Acetaminophen 325 MG / Oxycodone Hydrochloride 10 MG O ral Tablet [Percocet] 01/22/2020 12:00:00 AM EST eCW1 ([facility]) Morphine Sulfate ER 15 MG 01/20/2020 12:00:00 AM EST eCW1 ([facility]) Morphine Sulfate ER 15 MG 01/20/2020 12:00:00 AM EST eCW1 ([facility]) Morphine Sulfate ER 15 MG 01/20/2020 12:00:00 AM EST eCW1 ([facility]) Morphine Sulfate ER 15 MG 01/20/2020 12:00:00 AM EST eCW1 ([facility]) Morphine Sulfate ER 15 MG 01/20/2020 12:00:00 AM EST eCW1 ([facility]) Morphine Sulfate ER 15 MG 01/20/2020 12:00:00 AM EST eCW1 ([facility]) Morphine Sulfate ER 15 MG 01/20/2020 12:00:00 AM EST eCW1 ([facility]) duloxetine 30 MG Delayed Release Oral Capsule [Cymbalt a] 01/13/2020 12:00:00 AM EST eCW1 ([facility]) Spiriva Respimat 1.25 MCG/ACT 12/29/2019 12:00:00 AM EST eCW1 ([facility]) Spiriva Respimat 1.25 MCG/ACT 12/29/2019 12:00:00 AM EST eCW1 ([facility]) Spiriva Respimat 1.25 MCG/ACT 12/29/2019 12:00:00 AM EST eCW1 ([facility]) Spiriva Respimat 1.25 MCG/ACT 12/29/2019 12:00:00 AM EST eCW1 ([facility]) Spiriva Respimat 1.25 MCG/ACT 12/29/2019 12:00:00 AM EST eCW1 ([facility]) Spiriva Respimat 1.25 MCG/ACT 12/29/2019 12:00:00 AM EST eCW1 ([facility]) Spiriva Respimat 1.25 MCG/ACT 12/29/2019 12:00:00 AM EST eCW1 ([facility]) Spiriva Respimat 1.25 MCG/ACT 12/29/2019 12:00:00 AM EST eCW1 ([facility]) Spiriva Respimat 1.25 MCG/ACT 12/29/2019 12:00:00 AM EST eCW1 ([facility]) Spiriva Respimat 1.25 MCG/ACT 12/29/2019 12:00:00 AM EST eCW1 ([facility]) Spiriva Respimat 1.25 MCG/ACT 12/29/2019 12:00:00 AM EST eCW1 ([facility]) Spiriva Respimat 1.25 MCG/ACT 12/29/2019 12:00:00 AM EST eCW1 ([facility]) Acetaminophen 325 MG / Oxycodone Hydrochloride 10 MG O ral Tablet [Percocet] 12/22/2019 12:00:00 AM EST eCW1 ([facility]) Omeprazole 40 MG Delayed Release Oral Capsule 12/22/2019 12:00:00 A M EST eCW1 ([facility]) Sucralfate 1000 MG Oral Tablet 12/22/2019 12:00:00 AM EST eCW1 ([facility]) Acetaminophen 325 MG / Oxycodone Hydrochloride 10 MG O ral Tablet [Percocet] 12/22/2019 12:00:00 AM EST eCW1 ([facility]) Omeprazole 40 MG Delayed Release Oral Capsule 12/22/2019 12:00:00 A M EST eCW1 ([facility]) Sucralfate 1000 MG Oral Tablet 12/22/2019 12:00:00 AM EST eCW1 ([facility]) Acetaminophen 325 MG / Oxycodone Hydrochloride 10 MG O ral Tablet [Percocet] 12/22/2019 12:00:00 AM EST eCW1 ([facility]) Sucralfate 1000 MG Oral Tablet 12/22/2019 12:00:00 AM EST eCW1 ([facility]) Omeprazole 40 MG Delayed Release Oral Capsule 12/22/2019 12:00:00 A M EST eCW1 ([facility]) Acetaminophen 325 MG / Oxycodone Hydrochloride 10 MG O ral Tablet [Percocet] 12/22/2019 12:00:00 AM EST eCW1 ([facility]) Sucralfate 1000 MG Oral Tablet 12/22/2019 12:00:00 AM EST eCW1 ([facility]) Omeprazole 40 MG Delayed Release Oral Capsule 12/22/2019 12:00:00 A M EST eCW1 ([facility]) Acetaminophen 325 MG / Oxycodone Hydrochloride 10 MG O ral Tablet [Percocet] 12/22/2019 12:00:00 AM EST eCW1 ([facility]) Sucralfate 1000 MG Oral Tablet 12/22/2019 12:00:00 AM EST eCW1 ([facility]) Omeprazole 40 MG Delayed Release Oral Capsule 12/22/2019 12:00:00 A M EST eCW1 ([facility]) Acetaminophen 325 MG / Oxycodone Hydrochloride 10 MG O ral Tablet [Percocet] 12/22/2019 12:00:00 AM EST eCW1 ([facility]) Sucralfate 1000 MG Oral Tablet 12/22/2019 12:00:00 AM EST eCW1 ([facility]) Omeprazole 40 MG Delayed Release Oral Capsule 12/22/2019 12:00:00 A M EST eCW1 ([facility]) Omeprazole 40 MG Delayed Release Oral Capsule 12/22/2019 12:00:00 A M EST eCW1 ([facility]) Sucralfate 1000 MG Oral Tablet 12/22/2019 12:00:00 AM EST eCW1 ([facility]) Omeprazole 40 MG Delayed Release Oral Capsule 12/22/2019 12:00:00 A M EST eCW1 ([facility]) Sucralfate 1000 MG Oral Tablet 12/22/2019 12:00:00 AM EST eCW1 ([facility]) Omeprazole 40 MG Delayed Release Oral Capsule 12/22/2019 12:00:00 A M EST eCW1 ([facility]) Sucralfate 1000 MG Oral Tablet 12/22/2019 12:00:00 AM EST eCW1 ([facility]) Omeprazole 40 MG Delayed Release Oral Capsule 12/22/2019 12:00:00 A M EST eCW1 ([facility]) Sucralfate 1000 MG Oral Tablet 12/22/2019 12:00:00 AM EST eCW1 ([facility]) Omeprazole 40 MG Delayed Release Oral Capsule 12/22/2019 12:00:00 A M EST eCW1 ([facility]) Sucralfate 1000 MG Oral Tablet 12/22/2019 12:00:00 AM EST eCW1 ([facility]) Omeprazole 40 MG Delayed Release Oral Capsule 12/22/2019 12:00:00 A M EST eCW1 ([facility]) Sucralfate 1000 MG Oral Tablet 12/22/2019 12:00:00 AM EST eCW1 ([facility]) Omeprazole 40 MG Delayed Release Oral Capsule 12/22/2019 12:00:00 A M EST eCW1 ([facility]) Sucralfate 1000 MG Oral Tablet 12/22/2019 12:00:00 AM EST eCW1 ([facility]) Acetaminophen 325 MG / Oxycodone Hydrochloride 10 MG O ral Tablet [Percocet] 12/22/2019 12:00:00 AM EST eCW1 ([facility]) Omeprazole 40 MG Delayed Release Oral Capsule 12/22/2019 12:00:00 A M EST eCW1 ([facility]) Sucralfate 1000 MG Oral Tablet 12/22/2019 12:00:00 AM EST eCW1 ([facility]) Omeprazole 40 MG Delayed Release Oral Capsule 12/22/2019 12:00:00 A M EST eCW1 ([facility]) Sucralfate 1000 MG Oral Tablet 12/22/2019 12:00:00 AM EST eCW1 ([facility]) Omeprazole 40 MG Delayed Release Oral Capsule 12/22/2019 12:00:00 A M EST eCW1 ([facility]) Sucralfate 1000 MG Oral Tablet 12/22/2019 12:00:00 AM EST eCW1 ([facility]) Omeprazole 40 MG Delayed Release Oral Capsule 12/22/2019 12:00:00 A M EST eCW1 ([facility]) Sucralfate 1000 MG Oral Tablet 12/22/2019 12:00:00 AM EST eCW1 ([facility]) Acetaminophen 325 MG / Oxycodone Hydrochloride 10 MG O ral Tablet [Percocet] 11/24/2019 12:00:00 AM EDT eCW1 ([facility]) Diazepam 2 MG Oral Tablet 11/10/2019 12:00:00 AM EDT eCW1 ([facility]) Diazepam 2 MG Oral Tablet 11/10/2019 12:00:00 AM EDT eCW1 ([facility]) Diazepam 2 MG Oral Tablet 11/10/2019 12:00:00 AM EDT eCW1 ([facility]) Diazepam 2 MG Oral Tablet 11/10/2019 12:00:00 AM EDT eCW1 ([facility]) Diazepam 2 MG Oral Tablet 11/10/2019 12:00:00 AM EDT eCW1 ([facility]) Diazepam 2 MG Oral Tablet 11/10/2019 12:00:00 AM EDT eCW1 ([facility]) Diazepam 2 MG Oral Tablet 11/10/2019 12:00:00 AM EDT eCW1 ([facility]) Diazepam 2 MG Oral Tablet 11/10/2019 12:00:00 AM EDT eCW1 ([facility]) Diazepam 2 MG Oral Tablet 11/10/2019 12:00:00 AM EDT eCW1 ([facility]) Diazepam 2 MG Oral Tablet 11/10/2019 12:00:00 AM EDT eCW1 ([facility]) Diazepam 2 MG Oral Tablet 11/10/2019 12:00:00 AM EDT eCW1 ([facility]) Diazepam 2 MG Oral Tablet 11/10/2019 12:00:00 AM EDT eCW1 ([facility]) Diazepam 2 MG Oral Tablet 11/10/2019 12:00:00 AM EDT eCW1 ([facility]) Diazepam 2 MG Oral Tablet 11/10/2019 12:00:00 AM EDT eCW1 ([facility]) Diazepam 2 MG Oral Tablet 11/10/2019 12:00:00 AM EDT eCW1 ([facility]) Diazepam 2 MG Oral Tablet 11/10/2019 12:00:00 AM EDT eCW1 ([facility]) Diazepam 2 MG Oral Tablet 11/10/2019 12:00:00 AM EDT eCW1 ([facility]) Diazepam 2 MG Oral Tablet 11/10/2019 12:00:00 AM EDT eCW1 ([facility]) Diazepam 2 MG Oral Tablet 11/10/2019 12:00:00 AM EDT eCW1 ([facility]) Diazepam 2 MG Oral Tablet 11/10/2019 12:00:00 AM EDT eCW1 ([facility]) Diazepam 2 MG Oral Tablet 11/10/2019 12:00:00 AM EDT eCW1 ([facility]) Diazepam 2 MG Oral Tablet 11/10/2019 12:00:00 AM EDT eCW1 ([facility]) Diazepam 2 MG Oral Tablet 11/10/2019 12:00:00 AM EDT eCW1 ([facility]) Diazepam 2 MG Oral Tablet 11/10/2019 12:00:00 AM EDT eCW1 ([facility]) Diazepam 2 MG Oral Tablet 11/10/2019 12:00:00 AM EDT eCW1 ([facility]) Diazepam 2 MG Oral Tablet 11/10/2019 12:00:00 AM EDT eCW1 ([facility]) Diazepam 2 MG Oral Tablet 11/10/2019 12:00:00 AM EDT eCW1 ([facility]) Diazepam 2 MG Oral Tablet 11/10/2019 12:00:00 AM EDT eCW1 ([facility]) Diazepam 2 MG Oral Tablet 11/10/2019 12:00:00 AM EDT eCW1 ([facility]) Diazepam 2 MG Oral Tablet 11/10/2019 12:00:00 AM EDT eCW1 ([facility]) Diazepam 2 MG Oral Tablet 11/10/2019 12:00:00 AM EDT eCW1 ([facility]) Diazepam 2 MG Oral Tablet 11/10/2019 12:00:00 AM EDT eCW1 ([facility]) Diazepam 2 MG Oral Tablet 11/10/2019 12:00:00 AM EDT eCW1 ([facility]) Diazepam 2 MG Oral Tablet 11/10/2019 12:00:00 AM EDT eCW1 ([facility]) Diazepam 2 MG Oral Tablet 11/10/2019 12:00:00 AM EDT eCW1 ([facility]) Diazepam 2 MG Oral Tablet 11/10/2019 12:00:00 AM EDT eCW1 ([facility]) Diazepam 2 MG Oral Tablet 11/10/2019 12:00:00 AM EDT eCW1 ([facility]) Diazepam 2 MG Oral Tablet 11/10/2019 12:00:00 AM EDT eCW1 ([facility]) Diazepam 2 MG Oral Tablet 11/10/2019 12:00:00 AM EDT eCW1 ([facility]) Diazepam 2 MG Oral Tablet 11/10/2019 12:00:00 AM EDT eCW1 ([facility]) Diazepam 2 MG Oral Tablet 11/10/2019 12:00:00 AM EDT eCW1 ([facility]) Diazepam 2 MG Oral Tablet 11/10/2019 12:00:00 AM EDT eCW1 ([facility]) Diazepam 2 MG Oral Tablet 11/10/2019 12:00:00 AM EDT eCW1 ([facility]) Diazepam 2 MG Oral Tablet 11/10/2019 12:00:00 AM EDT eCW1 ([facility]) Diazepam 2 MG Oral Tablet 11/10/2019 12:00:00 AM EDT eCW1 ([facility]) Diazepam 2 MG Oral Tablet 11/10/2019 12:00:00 AM EDT eCW1 ([facility]) Diazepam 2 MG Oral Tablet 11/10/2019 12:00:00 AM EDT eCW1 ([facility]) Diazepam 2 MG Oral Tablet 11/10/2019 12:00:00 AM EDT eCW1 ([facility]) Diazepam 2 MG Oral Tablet 11/10/2019 12:00:00 AM EDT eCW1 ([facility]) 28 ACTUAT tiotropium 0.0025 MG/ACTUAT Metered Dose Inh aler [Spiriva] 09/04/2019 12:00:00 AM EDT eCW1 ([facility]) 28 ACTUAT tiotropium 0.0025 MG/ACTUAT Metered Dose Inh aler [Spiriva] 09/04/2019 12:00:00 AM EDT eCW1 ([facility]) 28 ACTUAT tiotropium 0.0025 MG/ACTUAT Metered Dose Inh aler [Spiriva] 09/04/2019 12:00:00 AM EDT eCW1 ([facility]) 28 ACTUAT tiotropium 0.0025 MG/ACTUAT Metered Dose Inh aler [Spiriva] 09/04/2019 12:00:00 AM EDT eCW1 ([facility]) 28 ACTUAT tiotropium 0.0025 MG/ACTUAT Metered Dose Inh aler [Spiriva] 09/04/2019 12:00:00 AM EDT eCW1 ([facility]) 28 ACTUAT tiotropium 0.0025 MG/ACTUAT Metered Dose Inh aler [Spiriva] 09/04/2019 12:00:00 AM EDT eCW1 ([facility]) 28 ACTUAT tiotropium 0.0025 MG/ACTUAT Metered Dose Inh aler [Spiriva] 09/04/2019 12:00:00 AM EDT eCW1 ([facility]) Morphine Sulfate 15 MG Extended Release Oral Tablet 09/03/19 20 12:00:00 AM EDT eCW1 ([facility]) 200 ACTUAT Albuterol 0.09 MG/ACTUAT Metered Dose Inhal er [Ventolin] 08/25/2019 12:00:00 AM EDT eCW1 ([facility]) tiotropium 0.018 MG/ACTUAT Inhalant Powder [Spiriva] 12:00:00 AM EDT eCW1 ([facility]) 200 ACTUAT Albuterol 0.09 MG/ACTUAT Metered Dose Inhal er [Ventolin] 08/25/2019 12:00:00 AM EDT eCW1 ([facility]) tiotropium 0.018 MG/ACTUAT Inhalant Powder [Spiriva] 12:00:00 AM EDT eCW1 ([facility]) 200 ACTUAT Albuterol 0.09 MG/ACTUAT Metered Dose Inhal er [Ventolin] 08/25/2019 12:00:00 AM EDT eCW1 ([facility]) tiotropium 0.018 MG/ACTUAT Inhalant Powder [Spiriva] 12:00:00 AM EDT eCW1 ([facility]) 200 ACTUAT Albuterol 0.09 MG/ACTUAT Metered Dose Inhal er [Ventolin] 08/25/2019 12:00:00 AM EDT eCW1 ([facility]) tiotropium 0.018 MG/ACTUAT Inhalant Powder [Spiriva] 12:00:00 AM EDT eCW1 ([facility]) 200 ACTUAT Albuterol 0.09 MG/ACTUAT Metered Dose Inhal er [Ventolin] 08/25/2019 12:00:00 AM EDT eCW1 ([facility]) tiotropium 0.018 MG/ACTUAT Inhalant Powder [Spiriva] 12:00:00 AM EDT eCW1 ([facility]) Chlorthalidone 25 MG Oral Tablet 08/04/2019 12:00:00 AM EDT eCW1 ([facility]) Propranolol Hydrochloride 10 MG Oral Tablet 08/04/2019 12:00:00 AM EDT eCW1 ([facility]) Morphine Sulfate 15 MG Extended Release Oral Tablet 07/28/19 12:00:00 AM EDT eCW1 ([facility]) Morphine Sulfate 15 MG Extended Release Oral Tablet 07/28/19 12:00:00 AM EDT eCW1 ([facility]) Acetaminophen 325 MG / Oxycodone Hydrochloride 10 MG O ral Tablet [Percocet] 07/13/2019 12:00:00 AM EDT eCW1 ([facility]) Morphine Sulfate 15 MG Extended Release Oral Tablet 07/07/19 12:00:00 AM EDT eCW1 ([facility]) Acetaminophen 325 MG / Oxycodone Hydrochloride 10 MG O ral Tablet [Percocet] 06/17/2019 12:00:00 AM EDT eCW1 ([facility]) Morphine Sulfate 15 MG Extended Release Oral Tablet 06/03/19 12:00:00 AM EDT eCW1 ([facility]) Acetaminophen 325 MG / Oxycodone Hydrochloride 10 MG O ral Tablet [Percocet] 05/18/2019 12:00:00 AM EDT eCW1 ([facility]) Morphine Sulfate 15 MG Extended Release Oral Tablet 05/04/19 12:00:00 AM EDT eCW1 ([facility]) Morphine Sulfate 15 MG Extended Release Oral Tablet 04/08/19 12:00:00 AM EST eCW1 ([facility]) Diazepam 5 MG Oral Tablet 04/01/2019 12:00:00 AM EST [facility] atorvastatin 40 MG Oral Tablet 03/26/2019 12:00:00 AM EST eCW1 ([facility]) atorvastatin 40 MG Oral Tablet 03/26/2019 12:00:00 AM EST eCW1 ([facility]) atorvastatin 40 MG Oral Tablet 03/26/2019 12:00:00 AM EST eCW1 ([facility]) Nystatin [id number] UNT/ML Topical Cream 03/26/2019 12:00:00 AM EST eCW1 ([facility]) Nystatin [id number] UNT/ML Topical Cream 03/26/2019 12:00:00 AM EST eCW1 ([facility]) Nystatin [id number] UNT/ML Topical Cream 03/26/2019 12:00:00 AM EST eCW1 ([facility]) atorvastatin 40 MG Oral Tablet 03/26/2019 12:00:00 AM EST eCW1 ([facility]) Losartan Potassium 50 MG Oral Tablet 03/26/2019 12:00:00 AM [facility] Ergocalciferol [id number] UNT Oral Capsule 03/26/2019 12:00:00 AM [facility] atorvastatin 40 MG Oral Tablet 03/26/2019 12:00:00 AM [facility] Nystatin [id number] UNT/ML Topical Cream 03/26/2019 12:00:00 AM EST eCW1 ([facility]) atorvastatin 40 MG Oral Tablet 03/26/2019 12:00:00 AM EST eCW1 ([facility]) Acetaminophen 325 MG / Oxycodone Hydrochloride 10 MG O ral Tablet [Percocet] 03/25/2019 12:00:00 AM EST [facility] ([facility]) Morphine Sulfate 15 MG Extended Release Oral Tablet 03/10/19 12:00:00 AM EST [facility] ([facility]) Diazepam 5 MG Oral Tablet 03/05/2019 12:00:00 AM [facility] Acetaminophen 325 MG / Oxycodone Hydrochloride 10 MG O ral Tablet [Percocet] 02/17/2019 12:00:00 AM EST eCW1 ([facility]) Morphine Sulfate 15 MG Extended Release Oral Tablet 02/12/19 12:00:00 AM EST [facility] ([facility]) duloxetine 30 MG Delayed Release Oral Capsule 12/30/2018 12:00:00 A M [facility] Losartan Potassium 25 MG Oral Tablet 05/14/2018 12:00:00 AM [facility] Propranolol Hydrochloride 20 MG Oral Tablet 01/13/2018 12:00:00 AM [facility] Oxycodone Hydrochloride 5 MG Oral Tablet 06/25/2017 12:00:00 AM [facility]
--- NOTE | 2020-03-24 06:33 | REPVR ---
PROCEDURE INFORMATION: Exam: XR Chest, 2 Views Exam date and time: 03/24/2020 6:25 AM Age: 55 years old Clinical indication: Other: SOB choked; Additional info: SOB, choked then vomited, possible aspiration TECHNIQUE: Imaging protocol: XR of the chest Views: 2 views. COMPARISON: 1. CR PORTABLE CHEST X-RAY 02/29/2020 5:26 PM 2. CR Chest, 2 view PA, Lat 12/27/2019 4:22:08 AM FINDINGS: Lungs: There is again a calcified granuloma in the left lower lobe or lingula. There is hyperinflation and hyperlucency of the lungs, consistent with COPD. Pleural spaces: Mild biapical pleural thickening is unchanged. No pleural effusions or pneumothorax identified. Heart/Mediastinum: The cardiomediastinal silhouette is within normal size limits. Bones/joints: Unremarkable. IMPRESSION: 1. Stable left-sided granuloma. 2. Hyperinflation consistent with COPD. No evidence of acute pleural or parenchymal disease. Electronically signed by: Kathie Beckett On 03/24/2020 06:33:20 AM
[2020-03-24 06:41] LABS: BASO % 0.5 % (0.0-1.0); EOS # 0.6 10^3/uL (0.0-0.5); EOS % 7.4 % (0.0-3.0); HEMATOCRIT 43.8 % (42.0-52.0); LYMPH # 1.5 10^3/uL (1.5-5.0); LYMPH % 18.4 % (24.0-44.0); MEAN CORPUSCULAR HEMOGLOBIN 32.5 pg (27.0-33.0); MEAN CORPUSCULAR HGB CONC 34.2 g/dl (32.0-36.5); MEAN CORPUSCULAR VOLUME 94.8 fl (80.0-96.0); MONO # 0.6 10^3/uL (0.0-0.8); MONO % 7.4 % (0.0-5.0); NEUTROPHILS # 5.5 10^3/uL (1.5-8.5); NEUTROPHILS % 65.9 % (36.0-66.0); PLATELET COUNT, AUTOMATED 266 10^3/uL (150-450); RED BLOOD COUNT 4.62 10^6/uL (4.30-6.10); WHITE BLOOD COUNT 8.4 10^3/uL (4.0-10.0)
[2020-03-24] MEDS ORDERED: LORazepam 2 MG/ML VIAL IV STA (06:53)
--- OUTSIDE RECORDS SUMMARY | 2020-03-24 06:54 | CCD ---
Author Author [facility] Organization [facility] Address Unknown Phone Unavailable Care Team Providers Care Refrigeration Technician Name Role Phone Jakub BOWIE MD Unavailable Unavailable Jakub BOWIE MD Unavailable Unavailable Jakub BOWIE MD Unavailable Unavailable Jakub BOIWE MD Unavailable Unavailable Jakub BOWIE MD Unavailable [...] JUDGE MD Unavailable Unavailable MANJARREZ, R PATRICK INSTRUCTOR PRODUCT INSPECTION Unavailable Unavailable MANJARREZ, R PATRICK INSTRUCTOR PRODUCT INSPECTION Unavailable Unavailable MANJARREZ, R PATRICK INSTRUCTOR PRODUCT INSPECTION Unavailable Unavailable MANJARREZ, R PATRICK INSTRUCTOR PRODUCT INSPECTION Unavailable Unavailable MANJARREZ, R PATRICK INSTRUCTOR PRODUCT INSPECTION Unavailable Unavailable MANJARREZ, R PATRICK INSTRUCTOR PRODUCT INSPECTION Unavailable Unavailable MANJARREZ, R PATRICK INSTRUCTOR PRODUCT INSPECTION Unavailable Unavailable MANJARREZ, R PATRICK INSTRUCTOR PRODUCT INSPECTION Unavailable Unavailable MANJARREZ, R PATRICK INSTRUCTOR PRODUCT INSPECTION Unavailable Unavailable MANJARREZ, R PATRICK INSTRUCTOR PRODUCT INSPECTION Unavailable Unavailable MANJARREZ, R PATRICK INSTRUCTOR PRODUCT INSPECTION Unavailable Unavailable MANJARREZ, R PATRICK INSTRUCTOR PRODUCT INSPECTION Unavailable Unavailable MANJARREZ, R PATRICK INSTRUCTOR PRODUCT INSPECTION Unavailable Unavailable MANJARREZ, R PATRICK INSTRUCTOR PRODUCT INSPECTION Unavailable Unavailable MANJARREZ, R PATRICK INSTRUCTOR PRODUCT INSPECTION Unavailable Unavailable MANJARREZ, R PATRICK INSTRUCTOR PRODUCT INSPECTION Unavailable Unavailable MANJARREZ, R PATRICK INSTRUCTOR PRODUCT INSPECTION Unavailable Unavailable MANJARREZ, R PATRICK INSTRUCTOR PRODUCT INSPECTION Unavailable Unavailable MANJARREZ, R PATRICK INSTRUCTOR PRODUCT INSPECTION Unavailable Unavailable MANJARREZ, R PATRICK INSTRUCTOR PRODUCT INSPECTION Unavailable Unavailable MANJARREZ, R PATRICK INSTRUCTOR PRODUCT INSPECTION Unavailable Unavailable MANJARREZ, R PATRICK INSTRUCTOR PRODUCT INSPECTION Unavailable Unavailable MANJARREZ, R PATRICK INSTRUCTOR PRODUCT INSPECTION Unavailable Unavailable MANJARREZ, R PATRICK INSTRUCTOR PRODUCT INSPECTION Unavailable Unavailable MANJARREZ, R PATRICK INSTRUCTOR PRODUCT INSPECTION Unavailable Unavailable MANJARREZ, R PATRICK INSTRUCTOR PRODUCT INSPECTION Unavailable Unavailable MANJARREZ, R PATRICK INSTRUCTOR PRODUCT INSPECTION Unavailable Unavailable MANJARREZ, R PATRICK INSTRUCTOR PRODUCT INSPECTION Unavailable Unavailable MANJARREZ, R PATRICK INSTRUCTOR PRODUCT INSPECTION Unavailable Unavailable MANJARREZ, R PATRICK INSTRUCTOR PRODUCT INSPECTION Unavailable Unavailable MANJARREZ, R PATRICK INSTRUCTOR PRODUCT INSPECTION Unavailable Unavailable MANJARREZ, R PATRICK INSTRUCTOR PRODUCT INSPECTION Unavailable Unavailable MANJARREZ, R PATRICK INSTRUCTOR PRODUCT INSPECTION Unavailable Unavailable MANJARREZ, R PATRICK INSTRUCTOR PRODUCT INSPECTION Unavailable Unavailable MANJARREZ, R PATRICK INSTRUCTOR PRODUCT INSPECTION Unavailable Unavailable MANJARREZ, R PATRICK INSTRUCTOR PRODUCT INSPECTION Unavailable Unavailable MANJARREZ, R PATRICK INSTRUCTOR PRODUCT INSPECTION Unavailable Unavailable MANJARREZ, R PATRICK INSTRUCTOR PRODUCT INSPECTION Unavailable Unavailable MANJARREZ, R PATRICK INSTRUCTOR PRODUCT INSPECTION Unavailable Unavailable MANJARREZ, R PATRICK INSTRUCTOR PRODUCT INSPECTION Unavailable Unavailable MANJARREZ, R PATRICK INSTRUCTOR PRODUCT INSPECTION Unavailable Unavailable Poe, M Brigid INSTRUCTOR PRODUCT INSPECTION Unavailable Unavailable Poe, M Brigid INSTRUCTOR PRODUCT INSPECTION Unavailable Unavailable Poe, M Brigid INSTRUCTOR PRODUCT INSPECTION Unavailable Unavailable Poe, M Brigid INSTRUCTOR PRODUCT INSPECTION Unavailable Unavailable Poe, M Brigid INSTRUCTOR PRODUCT INSPECTION Unavailable Unavailable Poe, M Brigid INSTRUCTOR PRODUCT INSPECTION Unavailable Unavailable Poe, M Brigid INSTRUCTOR PRODUCT INSPECTION Unavailable Unavailable Poe, M Brigid INSTRUCTOR PRODUCT INSPECTION Unavailable Unavailable Poe, M Brigid INSTRUCTOR PRODUCT INSPECTION Unavailable Unavailable Poe, M Brigid INSTRUCTOR PRODUCT INSPECTION Unavailable Unavailable Poe, M Brigid INSTRUCTOR PRODUCT INSPECTION Unavailable Unavailable Poe, M Brigid INSTRUCTOR PRODUCT INSPECTION Unavailable Unavailable Poe, M Brigid INSTRUCTOR PRODUCT INSPECTION Unavailable Unavailable Poe, M Brigid INSTRUCTOR PRODUCT INSPECTION Unavailable Unavailable Poe, M Brigid INSTRUCTOR PRODUCT INSPECTION Unavailable Unavailable Poe, M Brigid INSTRUCTOR PRODUCT INSPECTION Unavailable Unavailable Poe, M Brigid INSTRUCTOR PRODUCT INSPECTION Unavailable Unavailable Poe, M Brigid INSTRUCTOR PRODUCT INSPECTION Unavailable Unavailable Poe, M Brigid INSTRUCTOR PRODUCT INSPECTION Unavailable Unavailable Poe, M Brigid INSTRUCTOR PRODUCT INSPECTION Unavailable Unavailable Poe, M Brigid INSTRUCTOR PRODUCT INSPECTION Unavailable Unavailable Poe, M Brigid INSTRUCTOR PRODUCT INSPECTION Unavailable Unavailable Poe, M Brigid INSTRUCTOR PRODUCT INSPECTION Unavailable Unavailable Poe, M Brigid INSTRUCTOR PRODUCT INSPECTION Unavailable Unavailable Poe, M Brigid INSTRUCTOR PRODUCT INSPECTION Unavailable Unavailable Poe, M Brigid INSTRUCTOR PRODUCT INSPECTION Unavailable Unavailable Poe, M Brigid INSTRUCTOR PRODUCT INSPECTION Unavailable Unavailable Poe, M Brigid INSTRUCTOR PRODUCT INSPECTION Unavailable Unavailable Poe, M Brigid INSTRUCTOR PRODUCT INSPECTION Unavailable Unavailable Poe, M Brigid INSTRUCTOR PRODUCT INSPECTION Unavailable Unavailable Brooklyn Huber MD Unavailable Unavailable [...] is protected by Article 27-F of the [facility] Public Health law. If you continue you may have access to information: Regarding HIV / AIDS; Provided by facilities licensed or operated by the [facility] Office of Mental Health; or Provided by the [facility] Office for People With Developmental Disabilities. If such information is present, then the following [facility] mandated warning applies: This information has [...] law may result in a fine or care home sentence or both. A general authorization for the release of medical or other information is NOT sufficient authorization for further disc losure. Allergies and Adverse Reactions Type Description Substance Reaction Status Data Source(s ) Drug allergy Dexamethasone Dexamethasone erythema Active eCW1 ( [facility]) Drug allergy Penicillin (For Allergies Use Only) Drug allergy told as a child to not take Active eCW1 (Replaced by [facility]) Family History Family Member Name Family Member Gender Family Member Status Date o f Status Description Data Source(s) Unknown Male Problem MEDENT ([facility] ) Unknown Unknown Problem MEDENT ([facility], ) Unknown Unknown Problem MEDENT ([facility], ) Unknown Unknown Problem MEDENT ([facility], ) Unknown Unknown Problem MEDENT ([facility], ) Encounters Encounter Providers Location Date Indications Data Source(s ) Outpatient Attender: NU BOWIE MD 03/10/2020 12:00:00 A [facility] Unknown [address] [facility] [place] [address] 03/04/2020 12:00:00 AM EST eCW1 (Replaced by [facility]) Unknown [address] [facility] [place] [address] 03/02/2020 12:00:00 AM EST eCW1 (Replaced by [facility]) Unknown [address] [facility] [place] [address] 02/23/2020 12:00:00 AM EST eCW1 (Replaced by [facility]) Unknown [address] [facility] [place] [address] 02/23/2020 12:00:00 AM EST eCW1 (Replaced by [facility]) Unknown [address] [facility] [place] [address] 02/23/2020 12:00:00 AM EST eCW1 (Replaced by [facility]) Unknown [address] [facility] [place] [address] 02/08/2020 12:00:00 AM EST eCW1 ([facility]) TeleMedicine Phone E/M by Phys 21-30 Min [address] [place] [address] 01/28/2020 12:00:00 AM EST eCW1 ([facility]) Outpatient Attender: NU BOWIE MD 01/28/2020 12:00:00 A M [facility] Unknown [address] [facility] Y [address] 01/27/2020 12:00:00 AM EST eCW1 ([facility]) Unknown [address] [facility] Y [address] 01/27/2020 12:00:00 AM EST eCW1 ([facility]) Unknown [address] [facility] Y [address] 01/27/2020 12:00:00 AM EST eCW1 ([facility]) Unknown [address] [facility] Y [address] 01/26/2020 12:00:00 AM EST eCW1 ([facility]) Unknown [address] [facility] Y [address] 01/25/2020 12:00:00 AM EST eCW1 ([facility]) Unknown [address] [facility] [place] [address] 01/22/2020 12:00:00 AM EST eCW1 ([facility]) Unknown [address] [facility] Y [address] 01/20/2020 12:00:00 AM EST eCW1 ([facility]) Unknown [address] [facility] Y [address] 01/20/2020 12:00:00 AM EST eCW1 ([facility]) ([facility]) [facility] Scheduled Visit [address] [place] [address] 01/19/2020 12:00:00 AM EST eCW1 ([facility]) Unknown [address] [facility] Y [address] 01/19/2020 12:00:00 AM EST eCW1 ([facility]) Unknown [address] [facility] [place] [address] 01/18/2020 12:00:00 AM EST eCW1 ([facility]) Unknown [address] [facility] [place] [address] 01/18/2020 12:00:00 AM EST eCW1 ([facility]) Outpatient [address] [facility] [place] [address] 01/15/2020 12:00:00 AM EST eCW1 ([facility]) Unknown [address] [facility] [place] [address] 01/15/2020 12:00:00 AM EST eCW1 ([facility]) Unknown [address] [facility] [place] [address] 01/14/2020 12:00:00 AM EST eCW1 ([facility]) Unknown [address] [facility] [place] [address] 01/13/2020 12:00:00 AM EST eCW1 ([facility]) Unknown [address] [facility] [place] [address] 01/13/2020 12:00:00 AM EST eCW1 ([facility]) Unknown [address] [facility] [place] [address] 01/13/2020 12:00:00 AM EST eCW1 ([facility]) Outpatient Attender: NU BOWIE MD 01/13/2020 12:00:00 A [facility] Unknown [address] [facility] [place] [address] 01/12/2020 12:00:00 AM EST eCW1 ([facility]) Unknown [address] [facility] [place] [address] 01/12/2020 12:00:00 AM EST eCW1 ([facility]) Unknown [address] [facility] [place] [address] 01/12/2020 12:00:00 AM EST eCW1 ([facility]) Unknown [address] [facility] [place] [address] 01/11/2020 12:00:00 AM EST eCW1 ([facility]) Unknown [address] [facility] [place] [address] 01/10/2020 12:00:00 AM EST eCW1 ([facility]) Unknown [address] [facility] [place] [address] 01/05/2020 12:00:00 AM EST eCW1 ([facility]) Unknown [address] [facility] [place] [address] 01/04/2020 12:00:00 AM EST eCW1 ([facility]) Unknown [address] [facility] [place] [address] 01/02/2020 12:00:00 AM EST eCW1 ([facility]) Unknown [address] [facility] [place] [address] 01/01/2020 12:00:00 AM EST eCW1 ([facility]) Unknown [address] [facility] [place] [address] 12/31/2019 12:00:00 AM EST eCW1 ([facility]) Unknown [address] [facility] [place] [address] 12/29/2019 12:00:00 AM EST eCW1 ([facility]) Unknown [address] [facility] [place] [address] 12/28/2019 12:00:00 AM EST eCW1 ([facility]) Unknown [address] [facility] [place] [address] 12/25/2019 12:00:00 AM EST eCW1 ([facility]) Outpatient [address] [facility] [place] [address] 12/24/2019 12:00:00 AM EST eCW1 ([facility]) Unknown [address] [facility] [place] [address] 12/24/2019 12:00:00 AM EST eCW1 ([facility]) Unknown [address] [facility] [place] [address] 12/24/2019 12:00:00 AM EST eCW1 ([facility]) Unknown [address] [facility] [place] [address] 12/24/2019 12:00:00 AM EST eCW1 ([facility]) Unknown [address] [facility] [place] [address] 12/24/2019 12:00:00 AM EST eCW1 ([facility]) Unknown [address] [facility] [place] [address] 12/23/2019 12:00:00 AM EST eCW1 ([facility]) Unknown [address] [facility] [place] [address] 12/23/2019 12:00:00 AM EST eCW1 ([facility]) Unknown [address] [facility] [place] [address] 12/23/2019 12:00:00 AM EST eCW1 ([facility]) Unknown [address] [facility] [place] [address] 12/22/2019 12:00:00 AM EST eCW1 ([facility]) Unknown [address] [facility] [place] [address] 12/22/2019 12:00:00 AM EST eCW1 ([facility]) Outpatient [address] [facility] [place] [address] 12/22/2019 12:00:00 AM EST eCW1 ([facility]) Unknown [address] [facility] [place] [address] 12/22/2019 12:00:00 AM EST eCW1 ([facility]) Unknown [address] [facility] [place] [address] 12/21/2019 12:00:00 AM EST eCW1 ([facility]) Unknown [address] [facility] [place] [address] 12/20/2019 12:00:00 AM EST eCW1 ([facility]) Unknown [address] [facility] Y [address] 12/18/2019 12:00:00 AM EST eCW1 ([facility]) Unknown [address] [facility] Y [address] 12/18/2019 12:00:00 AM EST eCW1 ([facility]) Unknown [address] [facility] Y [address] 12/18/2019 12:00:00 AM EST eCW1 ([facility]) Unknown [address] [facility] Y [address] 12/18/2019 12:00:00 AM EST eCW1 ([facility]) Outpatient [address] [facility] Y [address] 12/17/2019 12:00:00 AM EST eCW1 ([facility]) (PN Proc 45) Pain Procedure 45 [address] [place] [address] 12/11/2019 12:00:00 AM EDT eCW1 ([facility]) Unknown [address] [facility] Y [address] 12/10/2019 12:00:00 AM EDT eCW1 ([facility]) Unknown [address] [facility] Y [address] 12/10/2019 12:00:00 AM EDT eCW1 ([facility]) Unknown [address] [facility] [place] [address] 12/09/2019 12:00:00 AM EDT eCW1 ([facility]) Unknown [address] [facility] Y [address] 12/07/2019 12:00:00 AM EDT eCW1 ([facility]) Unknown [address] [facility] Y [address] 12/01/2019 12:00:00 AM EDT eCW1 ([facility]) Unknown [address] [facility] [place] [address] 11/30/2019 12:00:00 AM EDT eCW1 ([facility]) Outpatient [address] [facility], [place] [address] 11/30/2019 12:00:00 AM EDT eCW1 ([facility]) Unknown [address] [facility] [place] [address] 11/29/2019 12:00:00 AM EDT eCW1 ([facility]) Outpatient [address] [facility] [address] 11/24/2019 12:00:00 AM EDT eCW1 ([facility]) Unknown [address] [facility] [place] [address] 11/17/2019 12:00:00 AM EDT eCW1 ([facility]) (PN Proc 45) Pain Procedure 45 [address] [place] [address] 11/12/2019 12:00:00 AM EDT eCW1 ([facility]) Unknown [address] [facility] [place] [address] 11/10/2019 12:00:00 AM EDT eCW1 ([facility]) Unknown [address] [facility] [place] [address] 11/03/2019 12:00:00 AM EDT eCW1 ([facility]) Unknown [address] [facility] [place] [address] 11/03/2019 12:00:00 AM EDT eCW1 ([facility]) Unknown [address] [facility], [place] [address] 11/03/2019 12:00:00 AM EDT eCW1 ([facility]) Unknown [address] [facility] [place] [address] 11/03/2019 12:00:00 AM EDT eCW1 ([facility]) Unknown [address] [facility] [place] [address] 11/03/2019 12:00:00 AM EDT eCW1 ([facility]) Unknown [address] [facility] [place] [address] 11/03/2019 12:00:00 AM EDT eCW1 ([facility]) [facility] [address] [facility] [place] [address] 10/09/2019 12:00:00 AM EDT eCW1 ([facility]) Outpatient Attender: Brooklyn Huber MD Main office - [place] 09/28/2019 03:10:00 PM EDT MEDENT ([facility] ) Outpatient Attender: Brooklyn Huber MD Main office - [place] 09/22/2019 11:30:00 AM EDT MEDENT ([facility] ) [facility] [address] [place] [address] 09/14/2019 12:00:00 AM EDT eCW1 ([facility]) Outpatient [address] [facility] [place] [address] 09/04/2019 12:00:00 AM EDT eCW1 ([facility]) Unknown [address] [facility] [place] [address] 09/03/2019 12:00:00 AM EDT eCW1 ([facility]) Unknown [address] [facility] [place] [address] 09/01/2019 12:00:00 AM EDT eCW1 ([facility]) Outpatient [address] [facility] [place] [address] 08/31/2019 12:00:00 AM EDT eCW1 ([facility]) Unknown [address] [facility] [place] [address] 08/28/2019 12:00:00 AM EDT eCW1 ([facility]) Unknown [address] [facility] [place] [address] 08/27/2019 12:00:00 AM EDT eCW1 ([facility]) Unknown [address] [facility] [place] [address] 08/27/2019 12:00:00 AM EDT eCW1 ([facility]) Unknown [address] [facility] [place] [address] 08/26/2019 12:00:00 AM EDT eCW1 ([facility]) Outpatient [address] [facility] [place] [address] 08/25/2019 12:00:00 AM EDT eCW1 ([facility]) Outpatient Attender: PATRICK MANJARREZ NP 08/25/2019 12:00:0 0 AM EDT [facility] Unknown [address] [facility] [place] [address] 08/19/2019 12:00:00 AM EDT eCW1 ([facility]) Outpatient Referrer: Brigid Poe NP 08/13/2019 05:20:00 AM EDT [facility] Radiology Imaging Office Visit, Est Pt., Level 3 PC [address] [place] [address] 08/13/2019 12:00:00 AM EDT eCW1 ([facility]) Outpatient [address] [facility] [place] [address] 08/04/2019 12:00:00 AM EDT eCW1 ([facility]) Unknown [address] [facility] [place] [address] 08/03/2019 12:00:00 AM EDT eCW1 ([facility]) [facility] [address] [place] [address] 07/30/2019 12:00:00 AM EDT eCW1 ([facility]) Outpatient Referrer: Brigid Poe NP 07/29/2019 05:54:00 AM EDT [facility] Radiology Imaging [facility] [address] [place] [address] 07/29/2019 12:00:00 AM EDT eCW1 ([facility]) Unknown [address] [facility] [place] [address] 07/28/2019 12:00:00 AM EDT eCW1 ([facility]) Unknown [address] [facility] [place] [address] 07/24/2019 12:00:00 AM EDT eCW1 ([facility]) Unknown [address] [facility] [place] [address] 07/22/2019 12:00:00 AM EDT [facility]CW1 ([facility]) Outpatient [address] [facility] Y [address] 07/14/2019 12:00:00 AM EDT eCW1 ([facility]) TeleMedicine Phone E/M by Phys 11-[address] [place] [address] 07/13/2019 12:00:00 AM EDT eCW1 ([facility]) [facility] [address] [place] [address] 07/13/2019 12:00:00 AM EDT eCW1 ([facility]) [facility] [address] [place] [address] 07/07/2019 12:00:00 AM EDT eCW1 ([facility]) [facility] [address] [facility] [place] [address] 06/25/2019 12:00:00 AM EDT eCW1 ([facility]) [facility] [address] [place] [address] 06/24/2019 12:00:00 AM EDT eCW1 ([facility]) [facility] [address] [place] [address] 06/16/2019 12:00:00 AM EDT eCW1 ([facility]) [facility] [address] [place] [address] 06/12/2019 12:00:00 AM EDT eCW1 ([facility]) [facility] [address] [place] [address] 06/03/2019 12:00:00 AM EDT eCW1 ([facility]) [facility] [address] [facility] Y [address] 06/03/2019 12:00:00 AM EDT eCW1 ([facility]) Outpatient Attender: NU BOWIE MD 06/03/2019 12:00:00 A M [facility] [address] [place] [address] 05/28/2019 12:00:00 AM EDT eCW1 ([facility]) [facility] [address] [place] [address] 05/27/2019 12:00:00 AM EDT eCW1 ([facility]) [facility] [address] [place] [address] 05/27/2019 12:00:00 AM EDT eCW1 ([facility]) [facility] [address] [facility] [address] 05/22/2019 12:00:00 AM EDT eCW1 ([facility]) [facility] [address] [place] [address] 05/21/2019 12:00:00 AM EDT eCW1 ([facility]) [facility] [address] [facility] [address] 05/20/2019 12:00:00 AM EDT eCW1 ([facility]) [facility] [address] [place] [address] 05/18/2019 12:00:00 AM EDT eCW1 ([facility]) [facility] [address] [place] [address] 05/15/2019 12:00:00 AM EDT eCW1 ([facility]) [facility] [address] [place] [address] 05/12/2019 12:00:00 AM EDT eCW1 ([facility]) [facility] [address] [place] [address] 05/12/2019 12:00:00 AM EDT eCW1 ([facility]) [facility] [facility] [address] [facility] Y [address] 05/08/2019 12:00:00 AM EDT eCW1 ([facility]) [facility] [address] [facility] [place] [phone] 05/05/2019 12:00:00 AM EDT eCW1 ([facility]) [facility] [address] [place] [phone] 05/01/2019 12:00:00 AM EDT eCW1 ([facility]) [facility] [place] [facility] [address] [place] [address] [place] [phone] 04/30/2019 12:00:00 AM EDT eCW1 ([facility]) [facility] [address] [place] [phone] 04/30/2019 12:00:00 AM EDT eCW1 ([facility]) [facility] [address] [place] [phone] 04/21/2019 12:00:00 AM EDT eCW1 ([facility]) [facility] [address] [place] [phone] 04/16/2019 12:00:00 AM EST eCW1 ([facility]) [facility] [address] [facility] [place] [phone] 04/15/2019 12:00:00 AM EST eCW1 ([facility]) [facility] [place] [facility] [address] [place] [address] [place] [phone] 04/14/2019 12:00:00 AM EST eCW1 ([facility]) [facility] [address] [place] [phone] 04/09/2019 12:00:00 AM EST eCW1 ([facility]) [facility] [address] [place] [phone] 04/08/2019 12:00:00 AM EST eCW1 ([facility]) Outpatient Referrer: Brigid Poe NP 04/07/2019 08:15:00 AM EST [facility] [address] [place] [phone] 04/07/2019 12:00:00 AM EST eCW1 ([facility]) [address] [phone] 04/06/2019 12:00:00 AM EST eCW1 ([facility]) [place] [address] [place] [address] [place] [phone] 04/02/2019 12:00:00 AM EST eCW1 ([facility]) Outpatient Attender: NU BOWIE MD [id number] 2019 12:00:00 AM EST - 04/20/2019 07:15:28 AM EDT Lesion of ulnar nerve, right upper limb [facility] Lesion of ulnar nerve, right upper limb [place] [address] [place] [address], [facility] [phone] 03/31/2019 12:00:00 AM EST eCW1 ([facility]) [facility] [address] [place] [phone] 03/27/2019 12:00:00 AM EST eCW1 ([facility]) [place] [address] [place] [phone] 03/26/2019 12:00:00 AM EST eCW1 ([facility]) [facility] [address] [place] [phone] 03/26/2019 12:00:00 AM EST eCW1 ([facility]) [facility] [address] [place] [phone] 03/25/2019 12:00:00 AM EST eCW1 ([facility]) [facility] [address] [place] [phone] 03/25/2019 12:00:00 AM EST eCW1 ([facility]) [facility] [address] [place] [phone] 03/23/2019 12:00:00 AM EST [facility]CW[facility] [place] [address] [place], [place] [phone] 03/10/2019 12:00:00 AM EST [facility]CW1 [facility] [place] Outpatient Attender: NU BOWIE MD 03/05/2019 12:00:[facility] [address] [place] [phone] 03/02/2019 12:00:00 AM EST eCW1 [facility] [place] [address] [place] [phone] 02/27/2019 12:00:00 AM EST eCW1 [facility] [place] [address] [place] [phone] 02/24/2019 12:00:00 AM EST eCW1 [facility] [place] [address] [place] [phone] 02/23/2019 12:00:00 AM EST eCW1 [facility] [place] [address] [place] [phone] 02/16/2019 12:00:00 AM EST eCW1 [facility] [place] [address] [place] [phone] 02/13/2019 12:00:00 AM EST eCW1 [facility] [place] [address] [place] [phone] 02/13/2019 12:00:00 AM EST eCW1 [facility] [place] [address] [place] [phone] 02/12/2019 12:00:00 AM EST [facility]CW1 [facility] [place] Immunizations Vaccine Date Status Description Data Source(s) influenza, recombinant, quadrIvalent,injectable, prese rvative free 01/15/2020 10:57:00 AM EST completed eCW1 ([facility]) influenza, recombinant, quadrIvalent,injectable, prese rvative free 01/15/2020 10:57:00 AM EST completed eCW1 ([facility]) influenza, recombinant, quadrIvalent,injectable, prese rvative free 01/15/2020 10:57:00 AM EST completed eCW1 ([facility]) influenza, recombinant, quadrIvalent,injectable, prese rvative free 01/15/2020 10:57:00 AM EST completed eCW1 ([facility]) influenza, recombinant, quadrIvalent,injectable, prese rvative free 01/15/2020 10:57:00 AM EST completed eCW1 ([facility]) influenza, recombinant, quadrIvalent,injectable, prese rvative free 01/15/2020 10:57:00 AM EST completed eCW1 ([facility]) influenza, recombinant, quadrIvalent,injectable, prese rvative free 01/15/2020 10:57:00 AM EST completed eCW1 ([facility]) influenza, recombinant, quadrIvalent,injectable, prese rvative free 01/15/2020 10:57:00 AM EST completed eCW1 ([facility]) influenza, recombinant, quadrIvalent,injectable, prese rvative free 01/15/2020 10:57:00 AM EST completed eCW1 ([facility]) influenza, recombinant, quadrIvalent,injectable, prese rvative free 01/15/2020 10:57:00 AM EST completed eCW1 ([facility]) influenza, recombinant, quadrIvalent,injectable, prese rvative free 01/15/2020 10:57:00 AM EST completed eCW1 ([facility]) influenza, recombinant, quadrIvalent,injectable, prese rvative free 01/15/2020 10:57:00 AM EST completed eCW1 ([facility]) influenza, recombinant, quadrIvalent,injectable, prese rvative free 01/15/2020 10:57:00 AM EST completed eCW1 ([facility]) influenza, recombinant, quadrIvalent,injectable, prese rvative free 01/15/2020 10:57:00 AM EST completed eCW1 ([facility]) influenza, recombinant, quadrIvalent,injectable, prese rvative free 01/15/2020 10:57:00 AM EST completed eCW1 ([facility]) influenza, recombinant, quadrIvalent,injectable, prese rvative free 01/15/2020 10:57:00 AM EST completed eCW1 ([facility]) influenza, recombinant, quadrIvalent,injectable, prese rvative free 01/15/2020 10:57:00 AM EST completed eCW1 ([facility]) influenza, recombinant, quadrIvalent,injectable, prese rvative free 01/15/2020 10:57:00 AM EST completed eCW1 ([facility]) influenza, recombinant, quadrIvalent,injectable, prese rvative free 01/15/2020 10:57:00 AM EST completed eCW1 ([facility]) influenza, recombinant, quadrIvalent,injectable, prese rvative free 01/15/2020 10:57:00 AM EST completed eCW1 ([facility]) influenza, recombinant, quadrIvalent,injectable, prese rvative free 01/15/2020 10:57:00 AM EST completed eCW1 ([facility]) influenza, recombinant, quadrIvalent,injectable, prese rvative free 01/15/2020 10:57:00 AM EST completed eCW1 ([facility]) influenza, recombinant, quadrIvalent,injectable, prese rvative free 01/15/2020 10:57:00 AM EST completed eCW1 ([facility]) influenza, recombinant, quadrIvalent,injectable, prese rvative free 01/15/2020 10:57:00 AM EST completed eCW1 ([facility]) influenza, recombinant, quadrIvalent,injectable, prese rvative free 01/15/2020 10:57:00 AM EST completed eCW1 ([facility]) Medications Medication Brand Name Start Date Product Form Dose Route Admi nistrative Instructions Pharmacy Instructions Status Indications Reaction Description Data Source(s) 20 mg 03/23/2020 12:00:00 AM EST tablet 90 TAKE ONE TABLET BY MOUTH THREE TIMES A DAY TAKE ONE TABLET BY MOUTH THREE TIMES A DAY SOLD: 03/23/2020 [facility] olanzapine 7.5 MG Oral Tablet OLANZAPINE 03/08/2020 12:00:00 AM EST ta blet 7 TAKE ONE TABLET BY MOUTH AT BEDTIME FOR PSYCHOSIS TAKE ONE TABLET BY MOUTH AT BEDTIME FOR PSYCHOSIS SOLD: 03/08/2020 [facility] olanzapine 7.5 MG Oral Tablet OLANZAPINE 03/08/2020 12:00:00 AM EST ta blet 7 TAKE ONE TABLET BY MOUTH AT BEDTIME FOR PSYCHOSIS TAKE ONE TABLET BY MOUTH AT BEDTIME FOR PSYCHOSIS SOLD: 03/15/2020 [facility] 2 mg 03/07/2020 12:00:00 AM EST tablet 4 TAKE ONE HALF TABLET BY MOUTH DAILY MAXIMUM DAILY DOSE = ONE HALF TABLET TAKE ONE HALF TABLET BY MOUTH DAILY MAXI MUM DAILY DOSE = ONE HALF TABLET SOLD: 03/07/2020 [facility] 50 mg 03/07/2020 12:00:00 AM EST tablet 14 TAKE TWO TABLET BY MOUTH AT BEDTIME FOR MOOD/SLEEP TAKE TWO TABLET BY MOUTH AT BEDTIME FOR MOOD/SLEEP NEIL [facility] olanzapine 10 MG Oral Tablet OLANZAPINE 03/07/2020 12:00:00 AM EST tab let 7 TAKE ONE TABLET BY MOUTH AT BEDTIME FOR PSYCHOSIS TAKE ONE TABLET BY MOUTH AT BEDTIME FOR PSYCHOSIS SOLD: 03/07/2020 [facility] olanzapine 10 MG Oral Tablet OLANZAPINE 03/07/2020 12:00:00 AM EST tab let 7 TAKE ONE TABLET BY MOUTH AT BEDTIME FOR PSYCHOSIS TAKE ONE TABLET BY MOUTH AT BEDTIME FOR PSYCHOSIS SOLD: 03/13/2020 [facility] Amitriptyline Hydrochloride 25 MG Oral Tablet AMITRIPTYLINE HCL 03/07/2020 12:00:00 AM EST tablet 7 TAKE ONE TABLET BY MOUTH AT BEDTIME FOR MOOD/SLEEP TAKE ONE TABLET BY MOUTH AT BEDTIME FOR MOOD/SLEEP SOLD: 03/07/2020 [facility] buspirone hydrochloride 10 MG Oral Tablet BUSPIRONE HCL 03/07/2020 12:00:00 AM EST tablet 14 TAKE ONE TABLET BY MOUTH TWI CE A DAY FOR ANXIETY TAKE ONE TABLET BY MOUTH TWICE A DAY FOR ANXIETY SOLD: 03/18/2020 [facility] buspirone hydrochloride 10 MG Oral [...] BY MOUTH AT BEDTIME FOR MOOD/SLEEP NEIL [facility] Amitriptyline Hydrochloride 25 MG Oral [...] {tablet_as_needed} active Percocet 10-3 25 MG eCW1 ([facility]) Morphine Sulfate 15 MG Oral Tablet Morphine Sulfate 15 MG 12:00:00 AM EST 1.0 {tablet_as_needed} active M orphine Sulfate 15 MG eCW1 ([facility]) Acetaminophen 325 MG / Oxycodone Hydroch loride 10 MG Oral Tablet [Percocet] Percocet 10-325 MG Percocet 10-325 MG 02/23/2020 12:00:00 AM EST 1.0 {tablet_as_needed} active Percocet 10-3 25 MG eCW1 ([facility]) Morphine Sulfate 15 MG Oral Tablet Morphine Sulfate 15 MG 12:00:00 AM EST 1.0 {tablet_as_needed} active M orphine Sulfate 15 MG eCW1 ([facility]) Acetaminophen 325 MG / Oxycodone Hydroch loride 10 MG Oral Tablet [Percocet] Percocet 10-325 MG Percocet 10-325 MG 02/23/2020 12:00:00 AM EST 1.0 {tablet_as_needed} active Percocet 10-3 25 MG eCW1 ([facility]) Morphine Sulfate 15 MG Oral Tablet Morphine Sulfate 15 MG 12:00:00 AM EST 1.0 {tablet_as_needed} active M orphine Sulfate 15 MG eCW1 ([facility]) Morphine Sulfate 15 MG Oral Tablet Morphine Sulfate 15 MG 12:00:00 AM EST 1.0 {tablet_as_needed} active M orphine Sulfate 15 MG eCW1 ([facility]) Acetaminophen 325 MG / Oxycodone Hydroch loride 10 MG Oral Tablet [Percocet] Percocet 10-325 MG Percocet 10-325 MG 02/23/2020 12:00:00 AM EST 1.0 {tablet_as_needed} active Percocet 10-3 25 MG eCW1 ([facility]) Acetaminophen 325 MG / Oxycodone Hydroch loride 10 MG Oral Tablet [Percocet] Percocet 10-325 MG Percocet 10-325 MG 02/23/2020 12:00:00 AM EST 1.0 {tablet_as_needed} active Percocet 10-3 25 MG eCW1 ([facility]) Morphine Sulfate 15 MG Oral Tablet Morphine Sulfate 15 MG 12:00:00 AM EST 1.0 {tablet_as_needed} active M orphine Sulfate 15 MG eCW1 ([facility]) Budesonide 180 MCG/ACT UNK 02/16/2020 12:00:00 AM EST 1.0 {puff } active Budesonide 180 MCG/ACT eCW1 ([facility]) Budesonide 180 MCG/ACT UNK 02/16/2020 12:00:00 AM EST 1.0 {puff } active Budesonide 180 MCG/ACT eCW1 ([facility]) Budesonide 180 MCG/ACT UNK 02/16/2020 12:00:00 AM EST 1.0 {puff } active Budesonide 180 MCG/ACT eCW1 ([facility]) Budesonide 180 MCG/ACT UNK 02/16/2020 12:00:00 AM EST 1.0 {puff } active Budesonide 180 MCG/ACT eCW1 ([facility]) Budesonide 180 MCG/ACT UNK 02/16/2020 12:00:00 AM EST 1.0 {puff } active Budesonide 180 MCG/ACT eCW1 ([facility]) 2 mg 02/09/2020 12:00:00 AM EST tablet [...] {ml_as_needed} active Ipratropium-Albuterol 0.5-2.5 (3) MG/3ML eCW1 ([facility]) Albuterol 0.833 MG/ML / Ipratropium Brom krish 0.167 MG/ML Inhalant Solution Ipratropium-Albuterol 0.5-2.5 (3) MG/3ML Ipratropium-Albuterol 0.5-2.5 (3) MG/3ML 01/28/2020 12:00:00 AM EST 3.0 {ml_as_needed} active Ipratropium-Albuterol 0.5-2.5 (3) MG/3ML eCW1 ([facility]) Albuterol 0.833 MG/ML / Ipratropium Brom krish 0.167 MG/ML Inhalant Solution Ipratropium-Albuterol 0.5-2.5 (3) MG/3ML Ipratropium-Albuterol 0.5-2.5 (3) MG/3ML 01/28/2020 12:00:00 AM EST 3.0 {ml_as_needed} active Ipratropium-Albuterol 0.5-2.5 (3) MG/3ML eCW1 ([facility]) Albuterol 0.833 MG/ML / Ipratropium Brom krish 0.167 MG/ML Inhalant Solution Ipratropium-Albuterol 0.5-2.5 (3) MG/3ML Ipratropium-Albuterol 0.5-2.5 (3) MG/3ML 01/28/2020 12:00:00 AM EST 3.0 {ml_as_needed} active Ipratropium-Albuterol 0.5-2.5 (3) MG/3ML eCW1 ([facility]) Albuterol 0.833 MG/ML / Ipratropium Brom krish 0.167 MG/ML Inhalant Solution Ipratropium-Albuterol 0.5-2.5 (3) MG/3ML Ipratropium-Albuterol 0.5-2.5 (3) MG/3ML 01/28/2020 12:00:00 AM EST 3.0 {ml_as_needed} active Ipratropium-Albuterol 0.5-2.5 (3) MG/3ML eCW1 ([facility]) Albuterol 0.833 MG/ML / Ipratropium Brom krish 0.167 MG/ML Inhalant Solution Ipratropium-Albuterol 0.5-2.5 (3) MG/3ML Ipratropium-Albuterol 0.5-2.5 (3) MG/3ML 01/28/2020 12:00:00 AM EST 3.0 {ml_as_needed} active Ipratropium-Albuterol 0.5-2.5 (3) MG/3ML eCW1 ([facility]) Albuterol 0.833 MG/ML / Ipratropium Brom krish 0.167 MG/ML Inhalant Solution Ipratropium-Albuterol 0.5-2.5 (3) MG/3ML Ipratropium-Albuterol 0.5-2.5 (3) MG/3ML 01/28/2020 12:00:00 AM EST 3.0 {ml_as_needed} active Ipratropium-Albuterol 0.5-2.5 (3) MG/3ML eCW1 ([facility]) Albuterol 0.833 MG/ML / Ipratropium Brom krish 0.167 MG/ML Inhalant Solution Ipratropium-Albuterol 0.5-2.5 (3) MG/3ML Ipratropium-Albuterol 0.5-2.5 (3) MG/3ML 01/28/2020 12:00:00 AM EST 3.0 {ml_as_needed} active Ipratropium-Albuterol 0.5-2.5 (3) MG/3ML eCW1 ([facility]) Albuterol 0.833 MG/ML / Ipratropium Brom krish 0.167 MG/ML Inhalant Solution Ipratropium-Albuterol 0.5-2.5 (3) MG/3ML Ipratropium-Albuterol 0.5-2.5 (3) MG/3ML 01/28/2020 12:00:00 AM EST 3.0 {ml_as_needed} active Ipratropium-Albuterol 0.5-2.5 (3) MG/3ML eCW1 ([facility]) Albuterol 0.833 MG/ML / Ipratropium Brom krish 0.167 MG/ML Inhalant Solution Ipratropium-Albuterol 0.5-2.5 (3) MG/3ML Ipratropium-Albuterol 0.5-2.5 (3) MG/3ML 01/28/2020 12:00:00 AM EST 3.0 {ml_as_needed} active Ipratropium-Albuterol 0.5-2.5 (3) MG/3ML eCW1 ([facility]) Albuterol 0.833 MG/ML / Ipratropium Brom krish 0.167 MG/ML Inhalant Solution Ipratropium-Albuterol 0.5-2.5 (3) MG/3ML Ipratropium-Albuterol 0.5-2.5 (3) MG/3ML 01/28/2020 12:00:00 AM EST 3.0 {ml_as_needed} active Ipratropium-Albuterol 0.5-2.5 (3) MG/3ML eCW1 ([facility]) Morphine Sulfate 15 MG Oral Tablet Morphine Sulfate 15 MG 12:00:00 AM EST 1.0 {tablet_as_needed} active M orphine Sulfate 15 MG eCW1 ([facility]) Morphine Sulfate 15 MG Oral Tablet Morphine Sulfate 15 MG 12:00:00 AM EST 1.0 {tablet_as_needed} active M orphine Sulfate 15 MG eCW1 ([facility]) Morphine Sulfate 15 MG Oral Tablet Morphine Sulfate 15 MG 12:00:00 AM EST 1.0 {tablet_as_needed} active M orphine Sulfate 15 MG eCW1 ([facility]) Morphine Sulfate 15 MG Oral Tablet Morphine Sulfate 15 MG 12:00:00 AM EST 1.0 {tablet_as_needed} active M orphine Sulfate 15 MG eCW1 ([facility]) Morphine Sulfate 15 MG Extended Release Oral Tablet Mo rphine Sulfate ER 15 MG Morphine Sulfate ER 15 MG 01/27/2020 12:00:00 AM EST 1.0 {tablet} active Morphine Sulfate ER 15 MG eCW1 ( [facility]) Morphine Sulfate 15 MG Oral Tablet Morphine Sulfate 15 MG 12:00:00 AM EST 1.0 {tablet_as_needed} active M orphine Sulfate 15 MG eCW1 ([facility]) Morphine Sulfate ER 15 MG UNK 01/27/2020 12:00:00 AM EST 1.0 {tablet} active Morphine Sulfate ER 15 MG eCW1 ( [facility]) Morphine Sulfate ER 15 MG UNK 01/27/2020 12:00:00 AM EST 1.0 {tablet} active Morphine Sulfate ER 15 MG eCW1 ( [facility]) Morphine Sulfate 15 MG Oral Tablet Morphine Sulfate 15 MG 12:00:00 AM EST 1.0 {tablet_as_needed} active M orphine Sulfate 15 MG eCW1 ([facility]) Morphine Sulfate 15 MG Oral Tablet Morphine Sulfate 15 MG 12:00:00 AM EST 1.0 {tablet_as_needed} active M orphine Sulfate 15 MG eCW1 ([facility]) Morphine Sulfate 15 MG Oral Tablet Morphine Sulfate 15 MG 12:00:00 AM EST 1.0 {tablet_as_needed} active M orphine Sulfate 15 MG eCW1 ([facility]) 15 mg 01/27/2020 12:00:00 AM [...] Morphine Sulfate ER 15 MG eCW1 ( [facility]) Morphine Sulfate ER 15 MG UNK 01/26/2020 12:00:00 AM EST 1.0 {tablet} active Morphine Sulfate ER 15 MG eCW1 ( [facility]) Acetaminophen 325 MG / Oxycodone Hydroch loride 10 MG Oral Tablet [Percocet] Percocet 10-325 MG Percocet 10-325 MG 01/22/2020 12:00:00 AM EST 1.0 {tablet_as_needed} active Percocet 10-3 25 MG eCW1 ([facility]) Acetaminophen 325 MG / Oxycodone Hydroch loride 10 MG Oral Tablet [Percocet] Percocet 10-325 MG Percocet 10-325 MG 01/22/2020 12:00:00 AM EST 1.0 {tablet_as_needed} suspended Percocet 10 -325 MG eCW1 ([facility]) Acetaminophen 325 MG / Oxycodone Hydroch loride 10 MG Oral Tablet [Percocet] Percocet 10-325 MG Percocet 10-325 MG 01/22/2020 12:00:00 AM EST 1.0 {tablet_as_needed} suspended Percocet 10 -325 MG eCW1 ([facility]) Acetaminophen 325 MG / Oxycodone Hydroch loride 10 MG Oral Tablet [Percocet] Percocet 10-325 MG Percocet 10-325 MG 01/22/2020 12:00:00 AM EST 1.0 {tablet_as_needed} active Percocet 10-3 25 MG eCW1 ([facility]) Acetaminophen 325 MG / Oxycodone Hydroch loride 10 MG Oral Tablet [Percocet] Percocet 10-325 MG Percocet 10-325 MG 01/22/2020 12:00:00 AM EST 1.0 {tablet_as_needed} active Percocet 10-3 25 MG eCW1 ([facility]) Acetaminophen 325 MG / Oxycodone Hydroch loride 10 MG Oral Tablet [Percocet] Percocet 10-325 MG Percocet 10-325 MG 01/22/2020 12:00:00 AM EST 1.0 {tablet_as_needed} active Percocet 10-3 25 MG eCW1 ([facility]) Acetaminophen 325 MG / Oxycodone Hydroch loride 10 MG Oral Tablet [Percocet] Percocet 10-325 MG Percocet 10-325 MG 01/22/2020 12:00:00 AM EST 1.0 {tablet_as_needed} suspended Percocet 10 -325 MG eCW1 ([facility]) 10-325 mg 01/22/2020 12:00:00 AM [...] = 2 AND 1/2 TABLETS SOLD: 01/22/2020 [facility] Acetaminophen 325 MG / Oxycodone Hydroch loride 10 MG Oral Tablet [Percocet] Percocet 10-325 MG Percocet 10-325 MG 01/22/2020 12:00:00 AM EST 1.0 {tablet_as_needed} suspended Percocet 10 -325 MG eCW1 ([facility]) Acetaminophen 325 MG / Oxycodone Hydroch loride 10 MG Oral Tablet [Percocet] Percocet 10-325 MG Percocet 10-325 MG 01/22/2020 12:00:00 AM EST 1.0 {tablet_as_needed} active Percocet 10-3 25 MG eCW1 ([facility]) Acetaminophen 325 MG / Oxycodone Hydroch loride 10 MG Oral Tablet [Percocet] Percocet 10-325 MG Percocet 10-325 MG 01/22/2020 12:00:00 AM EST 1.0 {tablet_as_needed} active Percocet 10-3 25 MG eCW1 ([facility]) Acetaminophen 325 MG / Oxycodone Hydroch loride 10 MG Oral Tablet [Percocet] Percocet 10-325 MG Percocet 10-325 MG 01/22/2020 12:00:00 AM EST 1.0 {tablet_as_needed} suspended Percocet 10 -325 MG eCW1 ([facility]) Acetaminophen 325 MG / Oxycodone Hydroch loride 10 MG Oral Tablet [Percocet] Percocet 10-325 MG Percocet 10-325 MG 01/22/2020 12:00:00 AM EST 1.0 {tablet_as_needed} suspended Percocet 10 -325 MG eCW1 ([facility]) Acetaminophen 325 MG / Oxycodone Hydroch loride 10 MG Oral Tablet [Percocet] Percocet 10-325 MG Percocet 10-325 MG 01/22/2020 12:00:00 AM EST 1.0 {tablet_as_needed} active Percocet 10-3 25 MG eCW1 ([facility]) Morphine Sulfate ER 15 MG UNK 01/20/2020 12:00:00 AM EST 1.0 {tablet} active Morphine Sulfate ER 15 MG eCW1 ( [facility]) Morphine Sulfate ER 15 MG UNK 01/20/2020 12:00:00 AM EST 1.0 {tablet} active Morphine Sulfate ER 15 MG eCW1 ( [facility]) Morphine Sulfate ER 15 MG UNK 01/20/2020 12:00:00 AM EST 1.0 {tablet} active Morphine Sulfate ER 15 MG eCW1 ( [facility]) 1 gram 01/20/2020 12:00:00 AM EST tablet 90 TAKE ONE TABLET BY MOUTH THREE TIMES A DAY ON EMPTY STOMACH BEFORE MEAL TAKE ONE TABLET BY MOUTH THREE TIMES A DAY ON EMPTY STOMACH BEFORE MEAL SOLD: 01/21/2020 [facility] Morphine Sulfate ER 15 MG UNK 01/20/2020 12:00:00 AM EST 1.0 {tablet} active Morphine Sulfate ER 15 MG eCW1 ( [facility]) Morphine Sulfate ER 15 MG UNK 01/20/2020 12:00:00 AM EST 1.0 {tablet} active Morphine Sulfate ER 15 MG eCW1 ( [facility]) Morphine Sulfate ER 15 MG UNK 01/20/2020 12:00:00 AM EST 1.0 {tablet} active Morphine Sulfate ER 15 MG eCW1 ( [facility]) Morphine Sulfate ER 15 MG UNK 01/20/2020 12:00:00 AM EST 1.0 {tablet} active Morphine Sulfate ER 15 MG eCW1 ( [facility]) 1 gram 01/16/2020 12:00:00 AM EST tablet 30 TAKE ONE TABLET BY MOUTH ON AN EMPTY STOMACH BEFORE EACH MEAL TAKE ONE TABLET BY MOUTH ON AN EMPTY STO MACH BEFORE EACH MEAL SOLD: 01/20/2020 [facility] 40 mg 01/16/2020 12:00:00 AM EST capsule,delayed release (DR/EC) 30 TAKE ONE CAPSULE BY MOUTH 30 MINUTES BEFORE MORNING MEAL TAKE ONE CAPSULE BY MOUTH 30 MINUTES BEFORE MORNING MEAL SOLD: 01/20/2020 [facility] duloxetine 30 MG Delayed Release Oral Capsule [Cymbalt a] Cymbalta 30 MG Cymbalta 30 MG 01/13/2020 12:00:00 AM EST 1.0 {capsule} acti ve Cymbalta 30 MG eCW1 ([facility]) duloxetine 30 MG Delayed Release Oral Capsule [Cymbalt a] Cymbalta 30 MG Cymbalta 30 MG 01/13/2020 12:00:00 AM EST 1.0 {capsule} acti ve Cymbalta 30 MG eCW1 ([facility]) 30 mg 01/13/2020 12:00:00 AM EST capsule,delayed release (DR/EC) 60 TAKE ONE CAPSULE BY MOUTH TWICE A DAY TAKE ONE CAPSULE BY MOUTH TWICE A DAY SOLD: 01/20/2020 [facility] duloxetine 30 MG Delayed Release Oral Capsule [Cymbalt a] Cymbalta 30 MG Cymbalta 30 MG 01/13/2020 12:00:00 AM EST 1.0 {capsule} acti ve Cymbalta 30 MG eCW1 ([facility]) duloxetine 30 MG Delayed Release Oral Capsule [Cymbalt a] Cymbalta 30 MG Cymbalta 30 MG 01/13/2020 12:00:00 AM EST 1.0 {capsule} acti ve Cymbalta 30 MG eCW1 ([facility]) 30 mg 01/12/2020 12:00:00 AM [...] suspended Spiriva R espimat 1.25 MCG/ACT eCW1 ([facility]) Spiriva Respimat 1.25 MCG/ACT Spiriva Respimat 1.25 MCG/ACT 12/29/2019 12:00:00 AM EST 2.0 {puffs} active Spiriva Resp imat 1.25 MCG/ACT eCW1 ([facility]) 250 mg 12/29/2019 12:00:00 AM EST tablet 30 TAKE ONE-HALF TABLET BY MOUTH TWICE A DAY TAKE ONE-HALF TABLET BY MOUTH TWICE A DAY SOLD: 12/29/2019 [facility] Spiriva Respimat 1.25 MCG/ACT Spiriva Respimat 1.25 MCG/ACT 12/29/2019 12:00:00 AM EST 2.0 {puffs} active Spiriva Resp imat 1.25 MCG/ACT eCW1 ([facility]) Spiriva Respimat 1.25 MCG/ACT Spiriva Respimat 1.25 MCG/ACT 12/29/2019 12:00:00 AM EST 2.0 {puffs} active Spiriva Resp imat 1.25 MCG/ACT [facility]CW[facility] [facility] Spiriva Respimat 1.25 MCG/ACT Spiriva Respimat 1.25 MCG/ACT 12/29/2019 12:00:00 AM EST 2.0 {puffs} active Spiriva Resp imat 1.25 MCG/ACT eCW1 ([facility]) Spiriva Respimat 1.25 MCG/ACT Spiriva Respimat 1.25 MCG/ACT 12/29/2019 12:00:00 AM EST 2.0 {puffs} active Spiriva Resp imat 1.25 MCG/ACT eCW1 ([facility]) Spiriva Respimat 1.25 MCG/ACT Spiriva Respimat 1.25 MCG/ACT 12/29/2019 12:00:00 AM EST 2.0 {puffs} active Spiriva Resp imat 1.25 MCG/ACT eCW1 ([facility]) Spiriva Respimat 1.25 MCG/ACT Spiriva Respimat 1.25 MCG/ACT 12/29/2019 12:00:00 AM EST 2.0 {puffs} suspended Spiriva R espimat 1.25 MCG/ACT eCW1 ([facility]) Spiriva Respimat 1.25 MCG/ACT Spiriva Respimat 1.25 MCG/ACT 12/29/2019 12:00:00 AM EST 2.0 {puffs} suspended Spiriva R espimat 1.25 MCG/ACT eCW1 ([facility]) Spiriva Respimat 1.25 MCG/ACT Spiriva Respimat 1.25 MCG/ACT 12/29/2019 12:00:00 AM EST 2.0 {puffs} active Spiriva Resp imat 1.25 MCG/ACT eCW1 ([facility]) Spiriva Respimat 1.25 MCG/ACT Spiriva Respimat 1.25 MCG/ACT 12/29/2019 12:00:00 AM EST 2.0 {puffs} active Spiriva Resp imat 1.25 MCG/ACT eCW1 ([facility]) Spiriva Respimat 1.25 MCG/ACT Spiriva Respimat 1.25 MCG/ACT 12/29/2019 12:00:00 AM EST 2.0 {puffs} active Spiriva Resp imat 1.25 MCG/ACT eCW1 ([facility]) Spiriva Respimat 1.25 MCG/ACT Spiriva Respimat 1.25 MCG/ACT 12/29/2019 12:00:00 AM EST 2.0 {puffs} active Spiriva Resp imat 1.25 MCG/ACT eCW1 ([facility]) Spiriva Respimat 1.25 MCG/ACT Spiriva Respimat 1.25 MCG/ACT 12/29/2019 12:00:00 AM EST 2.0 {puffs} active Spiriva Resp imat 1.25 MCG/ACT eCW1 ([facility]) Spiriva Respimat 1.25 MCG/ACT Spiriva Respimat 1.25 MCG/ACT 12/29/2019 12:00:00 AM EST 2.0 {puffs} suspended Spiriva R espimat 1.25 MCG/ACT eCW1 ([facility]) Spiriva Respimat 1.25 MCG/ACT Spiriva Respimat 1.25 MCG/ACT 12/29/2019 12:00:00 AM EST 2.0 {puffs} active Spiriva Resp imat 1.25 MCG/ACT eCW1 ([facility]) Spiriva Respimat 1.25 MCG/ACT Spiriva Respimat 1.25 MCG/ACT 12/29/2019 12:00:00 AM EST 2.0 {puffs} active Spiriva Resp imat 1.25 MCG/ACT eCW1 ([facility]) Spiriva Respimat 1.25 MCG/ACT Spiriva Respimat 1.25 MCG/ACT 12/29/2019 12:00:00 AM EST 2.0 {puffs} active Spiriva Resp imat 1.25 MCG/ACT eCW1 ([facility]) Spiriva Respimat 1.25 MCG/ACT Spiriva Respimat 1.25 MCG/ACT 12/29/2019 12:00:00 AM EST 2.0 {puffs} active Spiriva Resp imat 1.25 MCG/ACT eCW1 ([facility]) Spiriva Respimat 1.25 MCG/ACT Spiriva Respimat 1.25 MCG/ACT 12/29/2019 12:00:00 AM EST 2.0 {puffs} active Spiriva Resp imat 1.25 MCG/ACT eCW1 ([facility]) Spiriva Respimat 1.25 MCG/ACT Spiriva Respimat 1.25 MCG/ACT 12/29/2019 12:00:00 AM EST 2.0 {puffs} suspended Spiriva R espimat 1.25 MCG/ACT eCW1 ([facility]) Spiriva Respimat 1.25 MCG/ACT Spiriva Respimat 1.25 MCG/ACT 12/29/2019 12:00:00 AM EST 2.0 {puffs} active Spiriva Resp imat 1.25 MCG/ACT eCW1 ([facility]) Spiriva Respimat 1.25 MCG/ACT Spiriva Respimat 1.25 MCG/ACT 12/29/2019 12:00:00 AM EST 2.0 {puffs} active Spiriva Resp imat 1.25 MCG/ACT eCW1 ([facility]) Spiriva Respimat 1.25 MCG/ACT Spiriva Respimat 1.25 MCG/ACT 12/29/2019 12:00:00 AM EST 2.0 {puffs} active Spiriva Resp imat 1.25 MCG/ACT eCW1 ([facility]) Spiriva Respimat 1.25 MCG/ACT Spiriva Respimat 1.25 MCG/ACT 12/29/2019 12:00:00 AM EST 2.0 {puffs} active Spiriva Resp imat 1.25 MCG/ACT eCW1 ([facility]) Spiriva Respimat 1.25 MCG/ACT Spiriva Respimat 1.25 MCG/ACT 12/29/2019 12:00:00 AM EST 2.0 {puffs} active Spiriva Resp imat 1.25 MCG/ACT eCW1 ([facility]) Spiriva Respimat 1.25 MCG/ACT Spiriva Respimat 1.25 MCG/ACT 12/29/2019 12:00:00 AM EST 2.0 {puffs} active Spiriva Resp imat 1.25 MCG/ACT eCW1 ([facility]) 20 mg 12/29/2019 12:00:00 AM EST tablet 90 TAKE ONE TABLET BY MOUTH THREE TIMES A DAY TAKE ONE TABLET BY MOUTH THREE TIMES A DAY SOLD: 01/26/2020 [facility] Spiriva Respimat 1.25 MCG/ACT Spiriva Respimat 1.25 MCG/ACT 12/29/2019 12:00:00 AM EST 2.0 {puffs} suspended Spiriva R espimat 1.25 MCG/ACT eCW1 ([facility]) Spiriva Respimat 1.25 MCG/ACT Spiriva Respimat 1.25 MCG/ACT 12/29/2019 12:00:00 AM EST 2.0 {puffs} suspended Spiriva R espimat 1.25 MCG/ACT eCW1 ([facility]) Spiriva Respimat 1.25 MCG/ACT Spiriva Respimat 1.25 MCG/ACT 12/29/2019 12:00:00 AM EST 2.0 {puffs} active Spiriva Resp imat 1.25 MCG/ACT eCW1 ([facility]) Spiriva Respimat 1.25 MCG/ACT Spiriva Respimat 1.25 MCG/ACT 12/29/2019 12:00:00 AM EST 2.0 {puffs} suspended Spiriva R espimat 1.25 MCG/ACT eCW1 ([facility]) Spiriva Respimat 1.25 MCG/ACT Spiriva Respimat 1.25 MCG/ACT 12/29/2019 12:00:00 AM EST 2.0 {puffs} active Spiriva Resp imat 1.25 MCG/ACT eCW1 ([facility]) Spiriva Respimat 1.25 MCG/ACT Spiriva Respimat 1.25 MCG/ACT 12/29/2019 12:00:00 AM EST 2.0 {puffs} active Spiriva Resp imat 1.25 MCG/ACT eCW1 ([facility]) 20 mg 12/29/2019 12:00:00 AM EST tablet 90 TAKE ONE TABLET BY MOUTH THREE TIMES A DAY TAKE ONE TABLET BY MOUTH THREE TIMES A DAY SOLD: 12/30/2019 [facility] Spiriva Respimat 1.25 MCG/ACT Spiriva Respimat 1.25 MCG/ACT 12/29/2019 12:00:00 AM EST 2.0 {puffs} active Spiriva Resp imat 1.25 MCG/ACT eCW1 ([facility]) Spiriva Respimat 1.25 MCG/ACT Spiriva Respimat 1.25 MCG/ACT 12/29/2019 12:00:00 AM EST 2.0 {puffs} active Spiriva Resp imat 1.25 MCG/ACT eCW1 ([facility]) Spiriva Respimat 1.25 MCG/ACT Spiriva Respimat 1.25 MCG/ACT 12/29/2019 12:00:00 AM EST 2.0 {puffs} suspended Spiriva R espimat 1.25 MCG/ACT eCW1 ([facility]) Spiriva Respimat 1.25 MCG/ACT Spiriva Respimat 1.25 MCG/ACT 12/29/2019 12:00:00 AM EST 2.0 {puffs} active Spiriva Resp imat 1.25 MCG/ACT eCW1 ([facility]) Spiriva Respimat 1.25 MCG/ACT Spiriva Respimat 1.25 MCG/ACT 12/29/2019 12:00:00 AM EST 2.0 {puffs} active Spiriva Resp imat 1.25 MCG/ACT eCW1 ([facility]) 2 mg 12/25/2019 12:00:00 AM [...] EST active Omeprazo le 40 MG eCW1 ([facility]) Acetaminophen 325 MG / Oxycodone Hydroch loride 10 MG Oral Tablet [Percocet] Percocet 10-325 MG Percocet 10-325 MG 12/22/2019 12:00:00 AM EST 1.0 {tablet_as_needed} active Percocet 10-3 25 MG eCW1 ([facility]) Acetaminophen 325 MG / Oxycodone Hydroch loride 10 MG Oral Tablet [Percocet] Percocet 10-325 MG Percocet 10-325 MG 12/22/2019 12:00:00 AM EST 1.0 {tablet_as_needed} active Percocet 10-3 25 MG eCW1 ([facility]) Sucralfate 1000 MG Oral Tablet Sucralfate 1 GM Sucralfate 1 GM 12/22/2019 12:00:00 AM EST 1.0 {tablet_on_an_empty_stomach} active Sucralfate 1 GM eCW1 ([facility]) Sucralfate 1000 MG Oral Tablet Sucralfate 1 GM Sucralfate 1 GM 12/22/2019 12:00:00 AM EST 1.0 {tablet_on_an_empty_stomach} active Sucralfate 1 GM eCW1 ([facility]) Omeprazole 40 MG Delayed Release Oral Capsule Omeprazole 40 MG 12/22/2019 12:00:00 AM EST active Omeprazo le 40 MG eCW1 ([facility]) Omeprazole 40 MG Delayed Release Oral Capsule Omeprazole 40 MG 12/22/2019 12:00:00 AM EST active Omeprazo le 40 MG eCW1 ([facility]) Sucralfate 1000 MG Oral Tablet Sucralfate 1 GM Sucralfate 1 GM 12/22/2019 12:00:00 AM EST 1.0 {tablet_on_an_empty_stomach} active Sucralfate 1 GM eCW1 ([facility]) Sucralfate 1000 MG Oral Tablet Sucralfate 1 GM Sucralfate 1 GM 12/22/2019 12:00:00 AM EST 1.0 {tablet_on_an_empty_stomach} active Sucralfate 1 GM eCW1 ([facility]) Omeprazole 40 MG Delayed Release Oral Capsule Omeprazole 40 MG 12/22/2019 12:00:00 AM EST active Omeprazo le 40 MG eCW1 ([facility]) Acetaminophen 325 MG / Oxycodone Hydroch loride 10 MG Oral Tablet [Percocet] Percocet 10-325 MG Percocet 10-325 MG 12/22/2019 12:00:00 AM EST 1.0 {tablet_as_needed} active Percocet 10-3 25 MG eCW1 ([facility]) Omeprazole 40 MG Delayed Release Oral Capsule Omeprazole 40 MG 12/22/2019 12:00:00 AM EST active Omeprazo le 40 MG eCW1 ([facility]) Sucralfate 1000 MG Oral Tablet Sucralfate 1 GM Sucralfate 1 GM 12/22/2019 12:00:00 AM EST 1.0 {tablet_on_an_empty_stomach} active Sucralfate 1 GM eCW1 ([facility]) Acetaminophen 325 MG / Oxycodone Hydroch loride 10 MG Oral Tablet [Percocet] Percocet 10-325 MG Percocet 10-325 MG 12/22/2019 12:00:00 AM EST 1.0 {tablet_as_needed} active Percocet 10-3 25 MG eCW1 ([facility]) Sucralfate 1000 MG Oral Tablet Sucralfate 1 GM Sucralfate 1 GM 12/22/2019 12:00:00 AM EST 1.0 {tablet_on_an_empty_stomach} active Sucralfate 1 GM eCW1 ([facility]) 1 gram 12/22/2019 12:00:00 AM EST tablet 90 TAKE 1 TABLET BY MOUTH ON AN EMPTY STOMACH BEFORE EACH MEAL TAKE 1 TABLET BY MOUTH ON AN EMPTY STOMA CH BEFORE EACH MEAL SOLD: 12/22/2019 [facility] Sucralfate 1000 MG Oral Tablet Sucralfate 1 GM Sucralfate 1 GM 12/22/2019 12:00:00 AM EST 1.0 {tablet_on_an_empty_stomach} active Sucralfate 1 GM eCW1 ([facility]) Sucralfate 1000 MG Oral Tablet Sucralfate 1 GM Sucralfate 1 GM 12/22/2019 12:00:00 AM EST 1.0 {tablet_on_an_empty_stomach} active Sucralfate 1 GM eCW1 ([facility]) Omeprazole 40 MG Delayed Release Oral Capsule Omeprazole 40 MG 12/22/2019 12:00:00 AM EST active Omeprazo le 40 MG eCW1 ([facility]) Sucralfate 1000 MG Oral Tablet Sucralfate 1 GM Sucralfate 1 GM 12/22/2019 12:00:00 AM EST 1.0 {tablet_on_an_empty_stomach} active Sucralfate 1 GM eCW1 ([facility]) Sucralfate 1000 MG Oral Tablet Sucralfate 1 GM Sucralfate 1 GM 12/22/2019 12:00:00 AM EST 1.0 {tablet_on_an_empty_stomach} active Sucralfate 1 GM eCW1 ([facility]) Acetaminophen 325 MG / Oxycodone Hydroch loride 10 MG Oral Tablet [Percocet] Percocet 10-325 MG Percocet 10-325 MG 12/22/2019 12:00:00 AM EST 1.0 {tablet_as_needed} active Percocet 10-3 25 MG eCW1 ([facility]) Omeprazole 40 MG Delayed Release Oral Capsule Omeprazole 40 MG 12/22/2019 12:00:00 AM EST active Omeprazo le 40 MG eCW1 ([facility]) Omeprazole 40 MG Delayed Release Oral Capsule Omeprazole 40 MG 12/22/2019 12:00:00 AM EST active Omeprazo le 40 MG eCW1 ([facility]) Acetaminophen 325 MG / Oxycodone Hydroch loride 10 MG Oral Tablet [Percocet] Percocet 10-325 MG Percocet 10-325 MG 12/22/2019 12:00:00 AM EST 1.0 {tablet_as_needed} active Percocet 10-3 25 MG eCW1 ([facility]) Sucralfate 1000 MG Oral Tablet Sucralfate 1 GM Sucralfate 1 GM 12/22/2019 12:00:00 AM EST 1.0 {tablet_on_an_empty_stomach} active Sucralfate 1 GM eCW1 ([facility]) Sucralfate 1000 MG Oral Tablet Sucralfate 1 GM Sucralfate 1 GM 12/22/2019 12:00:00 AM EST 1.0 {tablet_on_an_empty_stomach} active Sucralfate 1 GM eCW1 ([facility]) Omeprazole 40 MG Delayed Release Oral Capsule Omeprazole 40 MG 12/22/2019 12:00:00 AM EST active Omeprazo le 40 MG eCW1 ([facility]) Omeprazole 40 MG Delayed Release Oral Capsule Omeprazole 40 MG 12/22/2019 12:00:00 AM EST active Omeprazo le 40 MG eCW1 ([facility]) Omeprazole 40 MG Delayed Release Oral Capsule Omeprazole 40 MG 12/22/2019 12:00:00 AM EST active Omeprazo le 40 MG eCW1 ([facility]) Sucralfate 1000 MG Oral Tablet Sucralfate 1 GM Sucralfate 1 GM 12/22/2019 12:00:00 AM EST 1.0 {tablet_on_an_empty_stomach} active Sucralfate 1 GM eCW1 ([facility]) Sucralfate 1000 MG Oral Tablet Sucralfate 1 GM Sucralfate 1 GM 12/22/2019 12:00:00 AM EST 1.0 {tablet_on_an_empty_stomach} active Sucralfate 1 GM eCW1 ([facility]) Omeprazole 40 MG Delayed Release Oral Capsule Omeprazole 40 MG 12/22/2019 12:00:00 AM EST active Omeprazo le 40 MG eCW1 ([facility]) Acetaminophen 325 MG / Oxycodone Hydroch loride 10 MG Oral Tablet [Percocet] Percocet 10-325 MG Percocet 10-325 MG 12/22/2019 12:00:00 AM EST 1.0 {tablet_as_needed} active Percocet 10-3 25 MG eCW1 ([facility]) Sucralfate 1000 MG Oral Tablet Sucralfate 1 GM Sucralfate 1 GM 12/22/2019 12:00:00 AM EST 1.0 {tablet_on_an_empty_stomach} active Sucralfate 1 GM eCW1 ([facility]) Omeprazole 40 MG Delayed Release Oral Capsule Omeprazole 40 MG 12/22/2019 12:00:00 AM EST active Omeprazo le 40 MG eCW1 ([facility]) Omeprazole 40 MG Delayed Release Oral Capsule Omeprazole 40 MG 12/22/2019 12:00:00 AM EST active Omeprazo le 40 MG eCW1 ([facility]) Acetaminophen 325 MG / Oxycodone Hydroch loride 10 MG Oral Tablet [Percocet] Percocet 10-325 MG Percocet 10-325 MG 12/22/2019 12:00:00 AM EST 1.0 {tablet_as_needed} active Percocet 10-3 25 MG eCW1 ([facility]) Sucralfate 1000 MG Oral Tablet Sucralfate 1 GM Sucralfate 1 GM 12/22/2019 12:00:00 AM EST 1.0 {tablet_on_an_empty_stomach} active Sucralfate 1 GM eCW1 ([facility]) Sucralfate 1000 MG Oral Tablet Sucralfate 1 GM Sucralfate 1 GM 12/22/2019 12:00:00 AM EST 1.0 {tablet_on_an_empty_stomach} active Sucralfate 1 GM eCW1 ([facility]) Sucralfate 1000 MG Oral Tablet Sucralfate 1 GM Sucralfate 1 GM 12/22/2019 12:00:00 AM EST 1.0 {tablet_on_an_empty_stomach} active Sucralfate 1 GM eCW1 ([facility]) Omeprazole 40 MG Delayed Release Oral Capsule Omeprazole 40 MG 12/22/2019 12:00:00 AM EST active Omeprazo le 40 MG eCW1 ([facility]) Omeprazole 40 MG Delayed Release Oral Capsule Omeprazole 40 MG 12/22/2019 12:00:00 AM EST active Omeprazo le 40 MG eCW1 ([facility]) Omeprazole 40 MG Delayed Release Oral Capsule Omeprazole 40 MG 12/22/2019 12:00:00 AM EST active Omeprazo le 40 MG eCW1 ([facility]) Sucralfate 1000 MG Oral Tablet Sucralfate 1 GM Sucralfate 1 GM 12/22/2019 12:00:00 AM EST 1.0 {tablet_on_an_empty_stomach} active Sucralfate 1 GM eCW1 ([facility]) Omeprazole 40 MG Delayed Release Oral Capsule Omeprazole 40 MG 12/22/2019 12:00:00 AM EST active Omeprazo le 40 MG eCW1 ([facility]) Sucralfate 1000 MG Oral Tablet Sucralfate 1 GM Sucralfate 1 GM 12/22/2019 12:00:00 AM EST 1.0 {tablet_on_an_empty_stomach} active Sucralfate 1 GM eCW1 ([facility]) Omeprazole 40 MG Delayed Release Oral Capsule Omeprazole 40 MG 12/22/2019 12:00:00 AM EST active Omeprazo le 40 MG eCW1 ([facility]) Omeprazole 40 MG Delayed Release Oral Capsule Omeprazole 40 MG 12/22/2019 12:00:00 AM EST active Omeprazo le 40 MG eCW1 ([facility]) Acetaminophen 325 MG / Oxycodone Hydroch loride 10 MG Oral Tablet [Percocet] Percocet 10-325 MG Percocet 10-325 MG 12/22/2019 12:00:00 AM EST 1.0 {tablet_as_needed} active Percocet 10-3 25 MG eCW1 ([facility]) Sucralfate 1000 MG Oral Tablet Sucralfate 1 GM Sucralfate 1 GM 12/22/2019 12:00:00 AM EST 1.0 {tablet_on_an_empty_stomach} active Sucralfate 1 GM eCW1 ([facility]) Omeprazole 40 MG Delayed Release Oral Capsule Omeprazole 40 MG 12/22/2019 12:00:00 AM EST active Omeprazo le 40 MG eCW1 ([facility]) Sucralfate 1000 MG Oral Tablet Sucralfate 1 GM Sucralfate 1 GM 12/22/2019 12:00:00 AM EST 1.0 {tablet_on_an_empty_stomach} active Sucralfate 1 GM eCW1 ([facility]) Omeprazole 40 MG Delayed Release Oral Capsule Omeprazole 40 MG 12/22/2019 12:00:00 AM EST active Omeprazo le 40 MG eCW1 ([facility]) Omeprazole 40 MG Delayed Release Oral Capsule Omeprazole 40 MG 12/22/2019 12:00:00 AM EST active Omeprazo le 40 MG eCW1 ([facility]) Acetaminophen 325 MG / Oxycodone Hydroch loride 10 MG Oral Tablet [Percocet] Percocet 10-325 MG Percocet 10-325 MG 12/22/2019 12:00:00 AM EST 1.0 {tablet_as_needed} active Percocet 10-3 25 MG eCW1 ([facility]) Sucralfate 1000 MG Oral Tablet Sucralfate 1 GM Sucralfate 1 GM 12/22/2019 12:00:00 AM EST 1.0 {tablet_on_an_empty_stomach} active Sucralfate 1 GM eCW1 ([facility]) Sucralfate 1000 MG Oral Tablet Sucralfate 1 GM Sucralfate 1 GM 12/22/2019 12:00:00 AM EST 1.0 {tablet_on_an_empty_stomach} active Sucralfate 1 GM eCW1 ([facility]) Sucralfate 1000 MG Oral Tablet Sucralfate 1 GM Sucralfate 1 GM 12/22/2019 12:00:00 AM EST 1.0 {tablet_on_an_empty_stomach} active Sucralfate 1 GM eCW1 ([facility]) Sucralfate 1000 MG Oral Tablet Sucralfate 1 GM Sucralfate 1 GM 12/22/2019 12:00:00 AM EST 1.0 {tablet_on_an_empty_stomach} active Sucralfate 1 GM eCW1 ([facility]) Acetaminophen 325 MG / Oxycodone Hydroch loride 10 MG Oral Tablet [Percocet] Percocet 10-325 MG Percocet 10-325 MG 12/22/2019 12:00:00 AM EST 1.0 {tablet_as_needed} active Percocet 10-3 25 MG eCW1 ([facility]) Omeprazole 40 MG Delayed Release Oral Capsule Omeprazole 40 MG 12/22/2019 12:00:00 AM EST active Omeprazo le 40 MG eCW1 ([facility]) Omeprazole 40 MG Delayed Release Oral Capsule Omeprazole 40 MG 12/22/2019 12:00:00 AM EST active Omeprazo le 40 MG eCW1 ([facility]) Sucralfate 1000 MG Oral Tablet Sucralfate 1 GM Sucralfate 1 GM 12/22/2019 12:00:00 AM EST 1.0 {tablet_on_an_empty_stomach} active Sucralfate 1 GM eCW1 ([facility]) Sucralfate 1000 MG Oral Tablet Sucralfate 1 GM Sucralfate 1 GM 12/22/2019 12:00:00 AM EST 1.0 {tablet_on_an_empty_stomach} active Sucralfate 1 GM eCW1 ([facility]) Sucralfate 1000 MG Oral Tablet Sucralfate 1 GM Sucralfate 1 GM 12/22/2019 12:00:00 AM EST 1.0 {tablet_on_an_empty_stomach} active Sucralfate 1 GM eCW1 ([facility]) Sucralfate 1000 MG Oral Tablet Sucralfate 1 GM Sucralfate 1 GM 12/22/2019 12:00:00 AM EST 1.0 {tablet_on_an_empty_stomach} active Sucralfate 1 GM eCW1 ([facility]) Omeprazole 40 MG Delayed Release Oral Capsule Omeprazole 40 MG 12/22/2019 12:00:00 AM EST active Omeprazo le 40 MG [facility] ([facility]) Sucralfate 1000 MG Oral Tablet Sucralfate 1 GM Sucralfate 1 GM 12/22/2019 12:00:00 AM EST 1.0 {tablet_on_an_empty_stomach} active Sucralfate 1 GM eCW1 ([facility]) Acetaminophen 325 MG / Oxycodone Hydroch loride 10 MG Oral Tablet [Percocet] Percocet 10-325 MG Percocet 10-325 MG 12/22/2019 12:00:00 AM EST 1.0 {tablet_as_needed} active Percocet 10-3 25 MG eCW1 ([facility]) Acetaminophen 325 MG / Oxycodone Hydroch loride 10 MG Oral Tablet [Percocet] Percocet 10-325 MG Percocet 10-325 MG 12/22/2019 12:00:00 AM EST 1.0 {tablet_as_needed} active Percocet 10-3 25 MG eCW1 ([facility]) Acetaminophen 325 MG / Oxycodone Hydroch loride 10 MG Oral Tablet [Percocet] Percocet 10-325 MG Percocet 10-325 MG 12/22/2019 12:00:00 AM EST 1.0 {tablet_as_needed} active Percocet 10-3 25 MG eCW1 ([facility]) Acetaminophen 325 MG / Oxycodone Hydroch loride 10 MG Oral Tablet [Percocet] Percocet 10-325 MG Percocet 10-325 MG 12/22/2019 12:00:00 AM EST 1.0 {tablet_as_needed} active Percocet 10-3 25 MG eCW1 ([facility]) Omeprazole 40 MG Delayed Release Oral Capsule Omeprazole 40 MG 12/22/2019 12:00:00 AM EST active Omeprazo le 40 MG eCW1 ([facility]) Sucralfate 1000 MG Oral Tablet Sucralfate 1 GM Sucralfate 1 GM 12/22/2019 12:00:00 AM EST 1.0 {tablet_on_an_empty_stomach} active Sucralfate 1 GM eCW1 ([facility]) Omeprazole 40 MG Delayed Release Oral Capsule Omeprazole 40 MG 12/22/2019 12:00:00 AM EST active Omeprazo le 40 MG eCW1 ([facility]) Sucralfate 1000 MG Oral Tablet Sucralfate 1 GM Sucralfate 1 GM 12/22/2019 12:00:00 AM EST 1.0 {tablet_on_an_empty_stomach} active Sucralfate 1 GM eCW1 ([facility]) Sucralfate 1000 MG Oral Tablet Sucralfate 1 GM Sucralfate 1 GM 12/22/2019 12:00:00 AM EST 1.0 {tablet_on_an_empty_stomach} active Sucralfate 1 GM eCW1 ([facility]) Acetaminophen 325 MG / Oxycodone Hydroch loride 10 MG Oral Tablet [Percocet] Percocet 10-325 MG Percocet 10-325 MG 12/22/2019 12:00:00 AM EST 1.0 {tablet_as_needed} active Percocet 10-3 25 MG eCW1 ([facility]) Acetaminophen 325 MG / Oxycodone Hydroch loride 10 MG Oral Tablet [Percocet] Percocet 10-325 MG Percocet 10-325 MG 12/22/2019 12:00:00 AM EST 1.0 {tablet_as_needed} active Percocet 10-3 25 MG eCW1 ([facility]) Sucralfate 1000 MG Oral Tablet Sucralfate 1 GM Sucralfate 1 GM 12/22/2019 12:00:00 AM EST 1.0 {tablet_on_an_empty_stomach} active Sucralfate 1 GM eCW1 ([facility]) Sucralfate 1000 MG Oral Tablet Sucralfate 1 GM Sucralfate 1 GM 12/22/2019 12:00:00 AM EST 1.0 {tablet_on_an_empty_stomach} active Sucralfate 1 GM eCW1 ([facility]) Omeprazole 40 MG Delayed Release Oral Capsule Omeprazole 40 MG 12/22/2019 12:00:00 AM EST active Omeprazo le 40 MG eCW1 ([facility]) Omeprazole 40 MG Delayed Release Oral Capsule Omeprazole 40 MG 12/22/2019 12:00:00 AM EST active Omeprazo le 40 MG eCW1 ([facility]) Acetaminophen 325 MG / Oxycodone Hydroch loride 10 MG Oral Tablet [Percocet] Percocet 10-325 MG Percocet 10-325 MG 12/22/2019 12:00:00 AM EST 1.0 {tablet_as_needed} active Percocet 10-3 25 MG eCW1 ([facility]) Acetaminophen 325 MG / Oxycodone Hydroch loride 10 MG Oral Tablet [Percocet] Percocet 10-325 MG Percocet 10-325 MG 12/22/2019 12:00:00 AM EST 1.0 {tablet_as_needed} active Percocet 10-3 25 MG eCW1 ([facility]) Omeprazole 40 MG Delayed Release Oral Capsule Omeprazole 40 MG 12/22/2019 12:00:00 AM EST active Omeprazo le 40 MG eCW1 ([facility]) 40 mg 12/22/2019 12:00:00 AM EST capsule,delayed release (DR/EC) 30 TAKE 1 CAPSULE BY MOUTH 30 MINS. BEFORE MORNING MEAL TAKE 1 CAPSULE BY MOUTH 30 MINS. BEFORE MORNING MEAL SOLD: 12/22/2019 [facility] Omeprazole 40 MG Delayed Release Oral Capsule Omeprazole 40 MG 12/22/2019 12:00:00 AM EST active Omeprazo le 40 MG eCW1 ([facility]) Sucralfate 1000 MG Oral Tablet Sucralfate 1 GM Sucralfate 1 GM 12/22/2019 12:00:00 AM EST 1.0 {tablet_on_an_empty_stomach} active Sucralfate 1 GM eCW1 ([facility]) Omeprazole 40 MG Delayed Release Oral Capsule Omeprazole 40 MG 12/22/2019 12:00:00 AM EST active Omeprazo le 40 MG eCW1 ([facility]) Acetaminophen 325 MG / Oxycodone Hydroch loride 10 MG Oral Tablet [Percocet] Percocet 10-325 MG Percocet 10-325 MG 12/22/2019 12:00:00 AM EST 1.0 {tablet_as_needed} active Percocet 10-3 25 MG eCW1 ([facility]) Sucralfate 1000 MG Oral Tablet Sucralfate 1 GM Sucralfate 1 GM 12/22/2019 12:00:00 AM EST 1.0 {tablet_on_an_empty_stomach} active Sucralfate 1 GM eCW1 ([facility]) Sucralfate 1000 MG Oral Tablet Sucralfate 1 GM Sucralfate 1 GM 12/22/2019 12:00:00 AM EST 1.0 {tablet_on_an_empty_stomach} active Sucralfate 1 GM eCW1 ([facility]) Omeprazole 40 MG Delayed Release Oral Capsule Omeprazole 40 MG 12/22/2019 12:00:00 AM EST active Omeprazo le 40 MG eCW1 ([facility]) Omeprazole 40 MG Delayed Release Oral Capsule Omeprazole 40 MG 12/22/2019 12:00:00 AM EST active Omeprazo le 40 MG eCW1 ([facility]) Omeprazole 40 MG Delayed Release Oral Capsule Omeprazole 40 MG 12/22/2019 12:00:00 AM EST active Omeprazo le 40 MG eCW1 ([facility]) Acetaminophen 325 MG / Oxycodone Hydroch loride 10 MG Oral Tablet [Percocet] Percocet 10-325 MG Percocet 10-325 MG 12/22/2019 12:00:00 AM EST 1.0 {tablet_as_needed} active Percocet 10-3 25 MG eCW1 ([facility]) Acetaminophen 325 MG / Oxycodone Hydroch loride 10 MG Oral Tablet [Percocet] Percocet 10-325 MG Percocet 10-325 MG 12/22/2019 12:00:00 AM EST 1.0 {tablet_as_needed} active Percocet 10-3 25 MG eCW1 ([facility]) Acetaminophen 325 MG / Oxycodone Hydroch loride 10 MG Oral Tablet [Percocet] Percocet 10-325 MG Percocet 10-325 MG 12/22/2019 12:00:00 AM EST 1.0 {tablet_as_needed} active Percocet 10-3 25 MG eCW1 ([facility]) Omeprazole 40 MG Delayed Release Oral Capsule Omeprazole 40 MG 12/22/2019 12:00:00 AM EST active Omeprazo le 40 MG eCW1 ([facility]) Acetaminophen 325 MG / Oxycodone Hydroch loride 10 MG Oral Tablet [Percocet] Percocet 10-325 MG Percocet 10-325 MG 12/22/2019 12:00:00 AM EST 1.0 {tablet_as_needed} active Percocet 10-3 25 MG eCW1 ([facility]) Sucralfate 1000 MG Oral Tablet Sucralfate 1 GM Sucralfate 1 GM 12/22/2019 12:00:00 AM EST 1.0 {tablet_on_an_empty_stomach} active Sucralfate 1 GM eCW1 ([facility]) Sucralfate 1000 MG Oral Tablet Sucralfate 1 GM Sucralfate 1 GM 12/22/2019 12:00:00 AM EST 1.0 {tablet_on_an_empty_stomach} active Sucralfate 1 GM eCW1 ([facility]) Omeprazole 40 MG Delayed Release Oral Capsule Omeprazole 40 MG 12/22/2019 12:00:00 AM EST active Omeprazo le 40 MG eCW1 ([facility]) Omeprazole 40 MG Delayed Release Oral Capsule Omeprazole 40 MG 12/22/2019 12:00:00 AM EST active Omeprazo le 40 MG eCW1 ([facility]) Omeprazole 40 MG Delayed Release Oral Capsule Omeprazole 40 MG 12/22/2019 12:00:00 AM EST active Omeprazo le 40 MG eCW1 ([facility]) Omeprazole 40 MG Delayed Release Oral Capsule Omeprazole 40 MG 12/22/2019 12:00:00 AM EST active Omeprazo le 40 MG eCW1 ([facility]) Acetaminophen 325 MG / Oxycodone Hydroch loride 10 MG Oral Tablet [Percocet] Percocet 10-325 MG Percocet 10-325 MG 12/22/2019 12:00:00 AM EST 1.0 {tablet_as_needed} active Percocet 10-3 25 MG eCW1 ([facility]) Acetaminophen 325 MG / Oxycodone Hydroch loride 10 MG Oral Tablet [Percocet] Percocet 10-325 MG Percocet 10-325 MG 12/22/2019 12:00:00 AM EST 1.0 {tablet_as_needed} active Percocet 10-3 25 MG eCW1 ([facility]) Sucralfate 1000 MG Oral Tablet Sucralfate 1 GM Sucralfate 1 GM 12/22/2019 12:00:00 AM EST 1.0 {tablet_on_an_empty_stomach} active Sucralfate 1 GM eCW1 ([facility]) Sucralfate 1000 MG Oral Tablet Sucralfate 1 GM Sucralfate 1 GM 12/22/2019 12:00:00 AM EST 1.0 {tablet_on_an_empty_stomach} active Sucralfate 1 GM eCW1 ([facility]) Omeprazole 40 MG Delayed Release Oral Capsule Omeprazole 40 MG 12/22/2019 12:00:00 AM EST active Omeprazo le 40 MG eCW1 ([facility]) Acetaminophen 325 MG / Oxycodone Hydroch loride 10 MG Oral Tablet [Percocet] Percocet 10-325 MG Percocet 10-325 MG 12/22/2019 12:00:00 AM EST 1.0 {tablet_as_needed} active Percocet 10-3 25 MG eCW1 ([facility]) Acetaminophen 325 MG / Oxycodone Hydroch loride 10 MG Oral Tablet [Percocet] Percocet 10-325 MG Percocet 10-325 MG 12/22/2019 12:00:00 AM EST 1.0 {tablet_as_needed} active Percocet 10-3 25 MG eCW1 ([facility]) Sucralfate 1000 MG Oral Tablet Sucralfate 1 GM Sucralfate 1 GM 12/22/2019 12:00:00 AM EST 1.0 {tablet_on_an_empty_stomach} active Sucralfate 1 GM eCW1 ([facility]) Omeprazole 40 MG Delayed Release Oral Capsule Omeprazole 40 MG 12/22/2019 12:00:00 AM EST active Omeprazo le 40 MG eCW1 ([facility]) Sucralfate 1000 MG Oral Tablet Sucralfate 1 GM Sucralfate 1 12/22/2019 12:00:00 AM EST 1.0 {tablet_on_an_empty_stomach} active Sucralfate 1 GM eCW1 ([facility]) Sucralfate 1000 MG Oral Tablet Sucralfate 1 GM Sucralfate 1 GM 12/22/2019 12:00:00 AM EST 1.0 {tablet_on_an_empty_stomach} active Sucralfate 1 GM eCW1 ([facility]) Omeprazole 40 MG Delayed Release Oral Capsule Omeprazole 40 MG 12/22/2019 12:00:00 AM EST active Omeprazo le 40 MG eCW1 ([facility]) Omeprazole 40 MG Delayed Release Oral Capsule Omeprazole 40 MG 12/22/2019 12:00:00 AM EST active Omeprazo le 40 MG eCW1 ([facility]) Sucralfate 1000 MG Oral Tablet Sucralfate 1 GM Sucralfate 1 GM 12/22/2019 12:00:00 AM EST 1.0 {tablet_on_an_empty_stomach} active Sucralfate 1 GM eCW1 ([facility]) Sucralfate 1000 MG Oral Tablet Sucralfate 1 GM Sucralfate 1 GM 12/22/2019 12:00:00 AM EST 1.0 {tablet_on_an_empty_stomach} active Sucralfate 1 GM eCW1 ([facility]) Omeprazole 40 MG Delayed Release Oral Capsule Omeprazole 40 MG 12/22/2019 12:00:00 AM EST active Omeprazo le 40 MG eCW1 ([facility]) Acetaminophen 325 MG / Oxycodone Hydroch loride 10 MG Oral Tablet [Percocet] Percocet 10-325 MG Percocet 10-325 MG 12/22/2019 12:00:00 AM EST 1.0 {tablet_as_needed} active Percocet 10-3 25 MG eCW1 ([facility]) Omeprazole 40 MG Delayed Release Oral Capsule Omeprazole 40 MG 12/22/2019 12:00:00 AM EST active Omeprazo le 40 MG eCW1 ([facility]) Omeprazole 40 MG Delayed Release Oral Capsule Omeprazole 40 MG 12/22/2019 12:00:00 AM EST active Omeprazo le 40 MG eCW1 ([facility]) Acetaminophen 325 MG / Oxycodone Hydroch loride 10 MG Oral Tablet [Percocet] Percocet 10-325 MG Percocet 10-325 MG 12/22/2019 12:00:00 AM EST 1.0 {tablet_as_needed} active Percocet 10-3 25 MG eCW1 ([facility]) Omeprazole 40 MG Delayed Release Oral Capsule Omeprazole 40 MG 12/22/2019 12:00:00 AM EST active Omeprazo le 40 MG eCW1 ([facility]) Omeprazole 40 MG Delayed Release Oral Capsule Omeprazole 40 MG 12/22/2019 12:00:00 AM EST active Omeprazo le 40 MG eCW1 ([facility]) Acetaminophen 325 MG / Oxycodone Hydroch loride 10 MG Oral Tablet [Percocet] Percocet 10-325 MG Percocet 10-325 MG 12/22/2019 12:00:00 AM EST 1.0 {tablet_as_needed} active Percocet 10-3 25 MG eCW1 ([facility]) Acetaminophen 325 MG / Oxycodone Hydroch loride 10 MG Oral Tablet [Percocet] Percocet 10-325 MG Percocet 10-325 MG 12/22/2019 12:00:00 AM EST 1.0 {tablet_as_needed} active Percocet 10-3 25 MG eCW1 ([facility]) Sucralfate 1000 MG Oral Tablet Sucralfate 1 GM Sucralfate 1 GM 12/22/2019 12:00:00 AM EST 1.0 {tablet_on_an_empty_stomach} active Sucralfate 1 GM eCW1 ([facility]) Omeprazole 40 MG Delayed Release Oral Capsule Omeprazole 40 MG 12/22/2019 12:00:00 AM EST active Omeprazo le 40 MG eCW1 ([facility]) 10-325 mg 12/22/2019 12:00:00 AM EST tablet 90 TAKE ONE TABLET BY MOUTH EVERY 6 HOURS MAXIMUM DAILY DOSE = 4 TABLETS TAKE ONE TABLET BY MOUTH EVERY 6 HOURS MAXIMUM DAILY DOSE = 4 TABLETS SOLD: 12/22/2019 [employer] Omeprazole 40 MG Delayed Release Oral Capsule Omeprazole 40 MG 12/22/2019 12:00:00 AM EST active Omeprazo le 40 MG eCW1 ([facility]) Acetaminophen 325 MG / Oxycodone Hydroch loride 10 MG Oral Tablet [Percocet] Percocet 10-325 MG Percocet 10-325 MG 12/22/2019 12:00:00 AM EST 1.0 {tablet_as_needed} active Percocet 10-3 25 MG eCW1 ([facility]) Omeprazole 40 MG Delayed Release Oral Capsule Omeprazole 40 MG 12/22/2019 12:00:00 AM EST active Omeprazo le 40 MG eCW1 ([facility]) Acetaminophen 325 MG / Oxycodone Hydroch loride 10 MG Oral Tablet [Percocet] Percocet 10-325 MG Percocet 10-325 MG 12/22/2019 12:00:00 AM EST 1.0 {tablet_as_needed} active Percocet 10-3 25 MG eCW1 ([facility]) Sucralfate 1000 MG Oral Tablet Sucralfate 1 GM Sucralfate 1 GM 12/22/2019 12:00:00 AM EST 1.0 {tablet_on_an_empty_stomach} active Sucralfate 1 GM eCW1 ([facility]) Acetaminophen 325 MG / Oxycodone Hydroch loride 10 MG Oral Tablet [Percocet] Percocet 10-325 MG Percocet 10-325 MG 12/22/2019 12:00:00 AM EST 1.0 {tablet_as_needed} active Percocet 10-3 25 MG [facility] ([facility]) Sucralfate 1000 MG Oral Tablet Sucralfate 1 GM Sucralfate 1 12/22/2019 12:00:00 AM EST 1.0 {tablet_on_an_empty_stomach} active Sucralfate 1 GM W1 ([facility]) Sucralfate 1000 MG Oral Tablet Sucralfate 1 GM Sucralfate 1 GM 12/22/2019 12:00:00 AM EST 1.0 {tablet_on_an_empty_stomach} active Sucralfate 1 GM [facility] ([facility]) Sucralfate 1000 MG Oral Tablet Sucralfate 1 GM Sucralfate 1 GM 12/22/2019 12:00:00 AM EST 1.0 {tablet_on_an_empty_stomach} active Sucralfate 1 GM eCW1 ([facility]) Amlodipine 5 MG / valsartan [...] {tablet_as_needed} active Percocet 10-3 25 MG eCW1 ([facility]) Acetaminophen 325 MG / Oxycodone Hydroch loride 10 MG Oral Tablet [Percocet] Percocet 10-325 MG Percocet 10-325 MG 11/24/2019 12:00:00 AM EDT 1.0 {tablet_as_needed} active Percocet 10-3 25 MG eCW1 ([facility]) Acetaminophen 325 MG / Oxycodone Hydroch loride 10 MG Oral Tablet [Percocet] Percocet 10-325 MG Percocet 10-325 MG 11/24/2019 12:00:00 AM EDT 1.0 {tablet_as_needed} active Percocet 10-3 25 MG eCW1 ([facility]) Acetaminophen 325 MG / Oxycodone Hydroch loride 10 MG Oral Tablet [Percocet] Percocet 10-325 MG Percocet 10-325 MG 11/24/2019 12:00:00 AM EDT 1.0 {tablet_as_needed} active Percocet 10-3 25 MG eCW1 ([facility]) Acetaminophen 325 MG / Oxycodone Hydroch loride 10 MG Oral Tablet [Percocet] Percocet 10-325 MG Percocet 10-325 MG 11/24/2019 12:00:00 AM EDT 1.0 {tablet_as_needed} active Percocet 10-3 25 MG eCW1 ([facility]) Acetaminophen 325 MG / Oxycodone Hydroch loride 10 MG Oral Tablet [Percocet] Percocet 10-325 MG Percocet 10-325 MG 11/24/2019 12:00:00 AM EDT 1.0 {tablet_as_needed} active Percocet 10-3 25 MG eCW1 ([facility]) Acetaminophen 325 MG / Oxycodone Hydroch loride 10 MG Oral Tablet [Percocet] Percocet 10-325 MG Percocet 10-325 MG 11/24/2019 12:00:00 AM EDT 1.0 {tablet_as_needed} active Percocet 10-3 25 MG eCW1 ([facility]) Acetaminophen 325 MG / Oxycodone Hydroch loride 10 MG Oral Tablet [Percocet] Percocet 10-325 MG Percocet 10-325 MG 11/24/2019 12:00:00 AM EDT 1.0 {tablet_as_needed} active Percocet 10-3 25 MG eCW1 ([facility]) Acetaminophen 325 MG / Oxycodone Hydroch loride 10 MG Oral Tablet [Percocet] Percocet 10-325 MG Percocet 10-325 MG 11/24/2019 12:00:00 AM EDT 1.0 {tablet_as_needed} active Percocet 10-3 25 MG eCW1 ([facility]) 10-325 mg 11/24/2019 12:00:00 AM [...] {tablet_as_needed} active Percocet 10-3 25 MG eCW1 ([facility]) Acetaminophen 325 MG / Oxycodone Hydroch loride 10 MG Oral Tablet [Percocet] Percocet 10-325 MG Percocet 10-325 MG 11/24/2019 12:00:00 AM EDT 1.0 {tablet_as_needed} active Percocet 10-3 25 MG eCW1 ([facility]) Acetaminophen 325 MG / Oxycodone Hydroch loride 10 MG Oral Tablet [Percocet] Percocet 10-325 MG Percocet 10-325 MG 11/24/2019 12:00:00 AM EDT 1.0 {tablet_as_needed} active Percocet 10-3 25 MG eCW1 ([facility]) Acetaminophen 325 MG / Oxycodone Hydroch loride 10 MG Oral Tablet [Percocet] Percocet 10-325 MG Percocet 10-325 MG 11/24/2019 12:00:00 AM EDT 1.0 {tablet_as_needed} active Percocet 10-3 25 MG eCW1 ([facility]) Acetaminophen 325 MG / Oxycodone Hydroch loride 10 MG Oral Tablet [Percocet] Percocet 10-325 MG Percocet 10-325 MG 11/24/2019 12:00:00 AM EDT 1.0 {tablet_as_needed} active Percocet 10-3 25 MG eCW1 ([facility]) Acetaminophen 325 MG / Oxycodone Hydroch loride 10 MG Oral Tablet [Percocet] Percocet 10-325 MG Percocet 10-325 MG 11/24/2019 12:00:00 AM EDT 1.0 {tablet_as_needed} active Percocet 10-3 25 MG eCW1 ([facility]) Acetaminophen 325 MG / Oxycodone Hydroch loride 10 MG Oral Tablet [Percocet] Percocet 10-325 MG Percocet 10-325 MG 11/24/2019 12:00:00 AM EDT 1.0 {tablet_as_needed} active Percocet 10-3 25 MG eCW1 ([facility]) Acetaminophen 325 MG / Oxycodone Hydroch loride 10 MG Oral Tablet [Percocet] Percocet 10-325 MG Percocet 10-325 MG 11/24/2019 12:00:00 AM EDT 1.0 {tablet_as_needed} active Percocet 10-3 25 MG eCW1 ([facility]) Acetaminophen 325 MG / Oxycodone Hydroch loride 10 MG Oral Tablet [Percocet] Percocet 10-325 MG Percocet 10-325 MG 11/24/2019 12:00:00 AM EDT 1.0 {tablet_as_needed} active Percocet 10-3 25 MG eCW1 ([facility]) atorvastatin 40 MG Oral Tablet ATORVASTATIN CALCIUM 11/18/2019 1 2:00:00 AM EDT tablet 90 TAKE ONE TABLET BY MOUTH EVERY D AY TAKE ONE TABLET BY MOUTH EVERY DAY SOLD: 03/16/2020 [facility] atorvastatin 40 MG Oral Tablet [...] AM EDT active Diazepam 2 MG eCW1 ([facility]) Diazepam 2 MG Oral Tablet Diazepam 2 MG 11/10/2019 12:00:00 AM EDT 1.0 {tablet_as_needed} active Diazepam 2 MG eCW1 ([facility]) Diazepam 2 MG Oral Tablet Diazepam 2 MG 11/10/2019 12:00:00 AM EDT 1.0 {tablet_as_needed} active Diazepam 2 MG eCW1 ([facility]) Diazepam 2 MG Oral Tablet Diazepam 2 MG 11/10/2019 12:00:00 AM EDT active Diazepam 2 MG eCW1 ([facility]) Diazepam 2 MG Oral Tablet Diazepam 2 MG 11/10/2019 12:00:00 AM EDT active Diazepam 2 MG eCW1 ([facility]) Diazepam 2 MG Oral Tablet Diazepam 2 MG 11/10/2019 12:00:00 AM EDT active Diazepam 2 MG eCW1 ([facility]) Diazepam 2 MG Oral Tablet Diazepam 2 MG 11/10/2019 12:00:00 AM EDT active Diazepam 2 MG eCW1 ([facility]) Diazepam 2 MG Oral Tablet Diazepam 2 MG 11/10/2019 12:00:00 AM EDT active Diazepam 2 MG eCW1 ([facility]) Diazepam 2 MG Oral Tablet Diazepam 2 MG 11/10/2019 12:00:00 AM EDT active Diazepam 2 MG eCW1 ([facility]) Diazepam 2 MG Oral Tablet Diazepam 2 MG 11/10/2019 12:00:00 AM EDT 1.0 {tablet_as_needed} active Diazepam 2 MG eCW1 ([facility]) Diazepam 2 MG Oral Tablet Diazepam 2 MG 11/10/2019 12:00:00 AM EDT 1.0 {tablet_as_needed} active Diazepam 2 MG eCW1 ([facility]) Diazepam 2 MG Oral Tablet Diazepam 2 MG 11/10/2019 12:00:00 AM EDT active Diazepam 2 MG eCW1 ([facility]) Diazepam 2 MG Oral Tablet Diazepam 2 MG 11/10/2019 12:00:00 AM EDT 1.0 {tablet_as_needed} active Diazepam 2 MG eCW1 ([facility]) Diazepam 2 MG Oral Tablet Diazepam 2 MG 11/10/2019 12:00:00 AM EDT active Diazepam 2 MG eCW1 ([facility]) Diazepam 2 MG Oral Tablet Diazepam 2 MG 11/10/2019 12:00:00 AM EDT 1.0 {tablet_as_needed} active Diazepam 2 MG eCW1 ([facility]) Diazepam 2 MG Oral Tablet Diazepam 2 MG 11/10/2019 12:00:00 AM EDT active Diazepam 2 MG eCW1 ([facility]) Diazepam 2 MG Oral Tablet Diazepam 2 MG 11/10/2019 12:00:00 AM EDT active Diazepam 2 MG eCW1 ([facility]) Diazepam 2 MG Oral Tablet Diazepam 2 MG 11/10/2019 12:00:00 AM EDT active Diazepam 2 MG eCW1 ([facility]) Diazepam 2 MG Oral Tablet Diazepam 2 MG 11/10/2019 12:00:00 AM EDT 1.0 {tablet_as_needed} active Diazepam 2 MG eCW1 ([facility]) Diazepam 2 MG Oral Tablet Diazepam 2 MG 11/10/2019 12:00:00 AM EDT 1.0 {tablet_as_needed} active Diazepam 2 MG eCW1 ([facility]) Diazepam 2 MG Oral Tablet Diazepam 2 MG 11/10/2019 12:00:00 AM EDT 1.0 {tablet_as_needed} active Diazepam 2 MG eCW1 ([facility]) Diazepam 2 MG Oral Tablet Diazepam 2 MG 11/10/2019 12:00:00 AM EDT active Diazepam 2 MG eCW1 ([facility]) Diazepam 2 MG Oral Tablet Diazepam 2 MG 11/10/2019 12:00:00 AM EDT active Diazepam 2 MG eCW1 ([facility]) Diazepam 2 MG Oral Tablet Diazepam 2 MG 11/10/2019 12:00:00 AM EDT active Diazepam 2 MG eCW1 ([facility]) Diazepam 2 MG Oral Tablet Diazepam 2 MG 11/10/2019 12:00:00 AM EDT active Diazepam 2 MG eCW1 ([facility]) Diazepam 2 MG Oral Tablet Diazepam 2 MG 11/10/2019 12:00:00 AM EDT active Diazepam 2 MG eCW1 ([facility]) Diazepam 2 MG Oral Tablet Diazepam 2 MG 11/10/2019 12:00:00 AM EDT active Diazepam 2 MG eCW1 ([facility]) Diazepam 2 MG Oral Tablet Diazepam 2 MG 11/10/2019 12:00:00 AM EDT active Diazepam 2 MG eCW1 ([facility]) Diazepam 2 MG Oral Tablet Diazepam 2 MG 11/10/2019 12:00:00 AM EDT 1.0 {tablet_as_needed} active Diazepam 2 MG eCW1 ([facility]) Diazepam 2 MG Oral Tablet Diazepam 2 MG 11/10/2019 12:00:00 AM EDT active Diazepam 2 MG eCW1 ([facility]) Diazepam 2 MG Oral Tablet Diazepam 2 MG 11/10/2019 12:00:00 AM EDT active Diazepam 2 MG eCW1 ([facility]) Diazepam 2 MG Oral Tablet Diazepam 2 MG 11/10/2019 12:00:00 AM EDT active Diazepam 2 MG eCW1 ([facility]) Diazepam 2 MG Oral Tablet Diazepam 2 MG 11/10/2019 12:00:00 AM EDT active Diazepam 2 MG eCW1 ([facility]) Diazepam 2 MG Oral Tablet Diazepam 2 MG 11/10/2019 12:00:00 AM EDT active Diazepam 2 MG eCW1 ([facility]) Diazepam 2 MG Oral Tablet Diazepam 2 MG 11/10/2019 12:00:00 AM EDT 1.0 {tablet_as_needed} active Diazepam 2 MG eCW1 ([facility]) Diazepam 2 MG Oral Tablet Diazepam 2 MG 11/10/2019 12:00:00 AM EDT 1.0 {tablet_as_needed} active Diazepam 2 MG eCW1 ([facility]) Diazepam 2 MG Oral Tablet Diazepam 2 MG 11/10/2019 12:00:00 AM EDT active Diazepam 2 MG eCW1 ([facility]) Diazepam 2 MG Oral Tablet Diazepam 2 MG 11/10/2019 12:00:00 AM EDT active Diazepam 2 MG eCW1 ([facility]) Diazepam 2 MG Oral Tablet Diazepam 2 MG 11/10/2019 12:00:00 AM EDT 1.0 {tablet_as_needed} active Diazepam 2 MG eCW1 ([facility]) Diazepam 2 MG Oral Tablet Diazepam 2 MG 11/10/2019 12:00:00 AM EDT 1.0 {tablet_as_needed} active Diazepam 2 MG eCW1 ([facility]) Diazepam 2 MG Oral Tablet Diazepam 2 MG 11/10/2019 12:00:00 AM EDT active Diazepam 2 MG eCW1 ([facility]) Diazepam 2 MG Oral Tablet Diazepam 2 MG 11/10/2019 12:00:00 AM EDT 1.0 {tablet_as_needed} active Diazepam 2 MG eCW1 ([facility]) Diazepam 2 MG Oral Tablet Diazepam 2 MG 11/10/2019 12:00:00 AM EDT 1.0 {tablet_as_needed} active Diazepam 2 MG eCW1 ([facility]) Diazepam 2 MG Oral Tablet Diazepam 2 MG 11/10/2019 12:00:00 AM EDT 1.0 {tablet_as_needed} active Diazepam 2 MG eCW1 ([facility]) Diazepam 2 MG Oral Tablet Diazepam 2 MG 11/10/2019 12:00:00 AM EDT 1.0 {tablet_as_needed} active Diazepam 2 MG eCW1 ([facility]) Diazepam 2 MG Oral Tablet Diazepam 2 MG 11/10/2019 12:00:00 AM EDT active Diazepam 2 MG eCW1 ([facility]) Diazepam 2 MG Oral Tablet Diazepam 2 MG 11/10/2019 12:00:00 AM EDT active Diazepam 2 MG eCW1 ([facility]) Diazepam 2 MG Oral Tablet Diazepam 2 MG 11/10/2019 12:00:00 AM EDT 1.0 {tablet_as_needed} active Diazepam 2 MG eCW1 ([facility]) Diazepam 2 MG Oral Tablet Diazepam 2 MG 11/10/2019 12:00:00 AM EDT 1.0 {tablet_as_needed} active Diazepam 2 MG eCW1 ([facility]) Diazepam 2 MG Oral Tablet Diazepam 2 MG 11/10/2019 12:00:00 AM EDT active Diazepam 2 MG eCW1 ([facility]) Diazepam 2 MG Oral Tablet Diazepam 2 MG 11/10/2019 12:00:00 AM EDT 1.0 {tablet_as_needed} active Diazepam 2 MG eCW1 ([facility]) Diazepam 2 MG Oral Tablet Diazepam 2 MG 11/10/2019 12:00:00 AM EDT active Diazepam 2 MG eCW1 ([facility]) Diazepam 2 MG Oral Tablet Diazepam 2 MG 11/10/2019 12:00:00 AM EDT active Diazepam 2 MG eCW1 ([facility]) Diazepam 2 MG Oral Tablet Diazepam 2 MG 11/10/2019 12:00:00 AM EDT active Diazepam 2 MG eCW1 ([facility]) Diazepam 2 MG Oral Tablet Diazepam 2 MG 11/10/2019 12:00:00 AM EDT active Diazepam 2 MG eCW1 ([facility]) Diazepam 2 MG Oral Tablet Diazepam 2 MG 11/10/2019 12:00:00 AM EDT active Diazepam 2 MG eCW1 ([facility]) Diazepam 2 MG Oral Tablet Diazepam 2 MG 11/10/2019 12:00:00 AM EDT active Diazepam 2 MG eCW1 ([facility]) Diazepam 2 MG Oral Tablet Diazepam 2 MG 11/10/2019 12:00:00 AM EDT 1.0 {tablet_as_needed} active Diazepam 2 MG eCW1 ([facility]) Diazepam 2 MG Oral Tablet Diazepam 2 MG 11/10/2019 12:00:00 AM EDT active Diazepam 2 MG eCW1 ([facility]) Diazepam 2 MG Oral Tablet Diazepam 2 MG 11/10/2019 12:00:00 AM EDT active Diazepam 2 MG eCW1 ([facility]) Diazepam 2 MG Oral Tablet Diazepam 2 MG 11/10/2019 12:00:00 AM EDT 1.0 {tablet_as_needed} active Diazepam 2 MG eCW1 ([facility]) Diazepam 2 MG Oral Tablet Diazepam 2 MG 11/10/2019 12:00:00 AM EDT active Diazepam 2 MG eCW1 ([facility]) Diazepam 2 MG Oral Tablet Diazepam 2 MG 11/10/2019 12:00:00 AM EDT 1.0 {tablet_as_needed} active Diazepam 2 MG eCW1 ([facility]) Diazepam 2 MG Oral Tablet Diazepam 2 MG 11/10/2019 12:00:00 AM EDT 1.0 {tablet_as_needed} active Diazepam 2 MG eCW1 ([facility]) Diazepam 2 MG Oral Tablet Diazepam 2 MG 11/10/2019 12:00:00 AM EDT 1.0 {tablet_as_needed} active Diazepam 2 MG eCW1 ([facility]) Diazepam 2 MG Oral Tablet Diazepam 2 MG 11/10/2019 12:00:00 AM EDT 1.0 {tablet_as_needed} active Diazepam 2 MG eCW1 ([facility]) Diazepam 2 MG Oral Tablet Diazepam 2 MG 11/10/2019 12:00:00 AM EDT active Diazepam 2 MG eCW1 ([facility]) Diazepam 2 MG Oral Tablet Diazepam 2 MG 11/10/2019 12:00:00 AM EDT 1.0 {tablet_as_needed} active Diazepam 2 MG eCW1 ([facility]) Diazepam 2 MG Oral Tablet Diazepam 2 MG 11/10/2019 12:00:00 AM EDT active Diazepam 2 MG eCW1 ([facility]) Diazepam 2 MG Oral Tablet Diazepam 2 MG 11/10/2019 12:00:00 AM EDT 1.0 {tablet_as_needed} active Diazepam 2 MG eCW1 ([facility]) Diazepam 2 MG Oral Tablet Diazepam 2 MG 11/10/2019 12:00:00 AM EDT active Diazepam 2 MG eCW1 ([facility]) Diazepam 2 MG Oral Tablet Diazepam 2 MG 11/10/2019 12:00:00 AM EDT active Diazepam 2 MG eCW1 ([facility]) Diazepam 2 MG Oral Tablet Diazepam 2 MG 11/10/2019 12:00:00 AM EDT active Diazepam 2 MG eCW1 ([facility]) Diazepam 2 MG Oral Tablet Diazepam 2 MG 11/10/2019 12:00:00 AM EDT active Diazepam 2 MG eCW1 ([facility]) Diazepam 2 MG Oral Tablet Diazepam 2 MG 11/10/2019 12:00:00 AM EDT active Diazepam 2 MG eCW1 ([facility]) Diazepam 2 MG Oral Tablet Diazepam 2 MG 11/10/2019 12:00:00 AM EDT active Diazepam 2 MG eCW1 ([facility]) Diazepam 2 MG Oral Tablet Diazepam 2 MG 11/10/2019 12:00:00 AM EDT active Diazepam 2 MG eCW1 ([facility]) Diazepam 2 MG Oral Tablet Diazepam 2 MG 11/10/2019 12:00:00 AM EDT active Diazepam 2 MG eCW1 ([facility]) Diazepam 2 MG Oral Tablet Diazepam 2 MG 11/10/2019 12:00:00 AM EDT active Diazepam 2 MG eCW1 ([facility]) 15 mg 11/04/2019 12:00:00 AM [...] Primidone 09/22/2019 12:00:00 AM EDT active MEDENT ([facility], ) 250 mg 09/22/2019 12:00:00 AM [...] suspended Spiriva Respimat 2 .5 MCG/ACT eCW1 ([facility]) 28 ACTUAT tiotropium 0.0025 MG/ACTUAT Me tered Dose Inhaler [Spiriva] Spiriva Respimat 2.5 MCG/ACT Spiriva Respimat 2.5 MCG/ACT 09/04/2019 12:00:00 AM EDT 2.0 {puffs} suspended Spiriva Respimat 2 .5 MCG/ACT eCW1 ([facility]) 28 ACTUAT tiotropium 0.0025 MG/ACTUAT Me tered Dose Inhaler [Spiriva] Spiriva Respimat 2.5 MCG/ACT Spiriva Respimat 2.5 MCG/ACT 09/04/2019 12:00:00 AM EDT 2.0 {puffs} active Spiriva Respimat 2.5 MCG/ACT eCW1 ([facility]) 28 ACTUAT tiotropium 0.0025 MG/ACTUAT Me tered Dose Inhaler [Spiriva] Spiriva Respimat 2.5 MCG/ACT Spiriva Respimat 2.5 MCG/ACT 09/04/2019 12:00:00 AM EDT 2.0 {puffs} suspended Spiriva Respimat 2 .5 MCG/ACT eCW1 ([facility]) 15 mg 09/04/2019 12:00:00 AM EDT tablet extended release 90 TAKE ONE TABLET BY MOUTH EVERY MORNING AND TWO TABLETS AT BEDTIME MAXIMUM DAILY DOSE = THREE TABLETS TAKE ONE TABLET BY MOUTH EVERY MORNING A ND TWO TABLETS AT BEDTIME MAXIMUM DAILY DOSE = THREE TABLETS SOLD: 09/04/2019 [employer] 28 ACTUAT tiotropium 0.0025 MG/ACTUAT Me tered Dose Inhaler [Spiriva] Spiriva Respimat 2.5 MCG/ACT Spiriva Respimat 2.5 MCG/ACT 09/04/2019 12:00:00 AM EDT 2.0 {puffs} active Spiriva Respimat 2.5 MCG/ACT eCW1 ([facility]) 28 ACTUAT tiotropium 0.0025 MG/ACTUAT Me tered Dose Inhaler [Spiriva] Spiriva Respimat 2.5 MCG/ACT Spiriva Respimat 2.5 MCG/ACT 09/04/2019 12:00:00 AM EDT 2.0 {puffs} active Spiriva Respimat 2.5 MCG/ACT eCW1 ([facility]) 28 ACTUAT tiotropium 0.0025 MG/ACTUAT Me tered Dose Inhaler [Spiriva] Spiriva Respimat 2.5 MCG/ACT Spiriva Respimat 2.5 MCG/ACT 09/04/2019 12:00:00 AM EDT 2.0 {puffs} suspended Spiriva Respimat 2 .5 MCG/ACT eCW1 ([facility]) 28 ACTUAT tiotropium 0.0025 MG/ACTUAT Me tered Dose Inhaler [Spiriva] Spiriva Respimat 2.5 MCG/ACT Spiriva Respimat 2.5 MCG/ACT 09/04/2019 12:00:00 AM EDT 2.0 {puffs} active Spiriva Respimat 2.5 MCG/ACT eCW1 ([facility]) 28 ACTUAT tiotropium 0.0025 MG/ACTUAT Me tered Dose Inhaler [Spiriva] Spiriva Respimat 2.5 MCG/ACT Spiriva Respimat 2.5 MCG/ACT 09/04/2019 12:00:00 AM EDT 2.0 {puffs} suspended Spiriva Respimat 2 .5 MCG/ACT eCW1 ([facility]) 28 ACTUAT tiotropium 0.0025 MG/ACTUAT Me tered Dose Inhaler [Spiriva] Spiriva Respimat 2.5 MCG/ACT Spiriva Respimat 2.5 MCG/ACT 09/04/2019 12:00:00 AM EDT 2.0 {puffs} active Spiriva Respimat 2.5 MCG/ACT eCW1 ([facility]) 28 ACTUAT tiotropium 0.0025 MG/ACTUAT Me tered Dose Inhaler [Spiriva] Spiriva Respimat 2.5 MCG/ACT Spiriva Respimat 2.5 MCG/ACT 09/04/2019 12:00:00 AM EDT 2.0 {puffs} suspended Spiriva Respimat 2 .5 MCG/ACT eCW1 ([facility]) 28 ACTUAT tiotropium 0.0025 MG/ACTUAT Me tered Dose Inhaler [Spiriva] Spiriva Respimat 2.5 MCG/ACT Spiriva Respimat 2.5 MCG/ACT 09/04/2019 12:00:00 AM EDT 2.0 {puffs} active Spiriva Respimat 2.5 MCG/ACT eCW1 ([facility]) 28 ACTUAT tiotropium 0.0025 MG/ACTUAT Me tered Dose Inhaler [Spiriva] Spiriva Respimat 2.5 MCG/ACT Spiriva Respimat 2.5 MCG/ACT 09/04/2019 12:00:00 AM EDT 2.0 {puffs} active Spiriva Respimat 2.5 MCG/ACT eCW1 ([facility]) 28 ACTUAT tiotropium 0.0025 MG/ACTUAT Me tered Dose Inhaler [Spiriva] Spiriva Respimat 2.5 MCG/ACT Spiriva Respimat 2.5 MCG/ACT 09/04/2019 12:00:00 AM EDT 2.0 {puffs} suspended Spiriva Respimat 2 .5 MCG/ACT eCW1 ([facility]) 28 ACTUAT tiotropium 0.0025 MG/ACTUAT Me tered Dose Inhaler [Spiriva] Spiriva Respimat 2.5 MCG/ACT Spiriva Respimat 2.5 MCG/ACT 09/04/2019 12:00:00 AM EDT 2.0 {puffs} active Spiriva Respimat 2.5 MCG/ACT eCW1 ([facility]) 28 ACTUAT tiotropium 0.0025 MG/ACTUAT Me tered Dose Inhaler [Spiriva] Spiriva Respimat 2.5 MCG/ACT Spiriva Respimat 2.5 MCG/ACT 09/04/2019 12:00:00 AM EDT 2.0 {puffs} suspended Spiriva Respimat 2 .5 MCG/ACT eCW1 ([facility]) 28 ACTUAT tiotropium 0.0025 MG/ACTUAT Me tered Dose Inhaler [Spiriva] Spiriva Respimat 2.5 MCG/ACT Spiriva Respimat 2.5 MCG/ACT 09/04/2019 12:00:00 AM EDT 2.0 {puffs} active Spiriva Respimat 2.5 MCG/ACT eCW1 ([facility]) 28 ACTUAT tiotropium 0.0025 MG/ACTUAT Me tered Dose Inhaler [Spiriva] Spiriva Respimat 2.5 MCG/ACT Spiriva Respimat 2.5 MCG/ACT 09/04/2019 12:00:00 AM EDT 2.0 {puffs} suspended Spiriva Respimat 2 .5 MCG/ACT eCW1 ([facility]) 28 ACTUAT tiotropium 0.0025 MG/ACTUAT Me tered Dose Inhaler [Spiriva] Spiriva Respimat 2.5 MCG/ACT Spiriva Respimat 2.5 MCG/ACT 09/04/2019 12:00:00 AM EDT 2.0 {puffs} active Spiriva Respimat 2.5 MCG/ACT eCW1 ([facility]) 28 ACTUAT tiotropium 0.0025 MG/ACTUAT Me tered Dose Inhaler [Spiriva] Spiriva Respimat 2.5 MCG/ACT Spiriva Respimat 2.5 MCG/ACT 09/04/2019 12:00:00 AM EDT 2.0 {puffs} active Spiriva Respimat 2.5 MCG/ACT eCW1 ([facility]) 28 ACTUAT tiotropium 0.0025 MG/ACTUAT Me tered Dose Inhaler [Spiriva] Spiriva Respimat 2.5 MCG/ACT Spiriva Respimat 2.5 MCG/ACT 09/04/2019 12:00:00 AM EDT 2.0 {puffs} active Spiriva Respimat 2.5 MCG/ACT eCW1 ([facility]) 28 ACTUAT tiotropium 0.0025 MG/ACTUAT Me tered Dose Inhaler [Spiriva] Spiriva Respimat 2.5 MCG/ACT Spiriva Respimat 2.5 MCG/ACT 09/04/2019 12:00:00 AM EDT 2.0 {puffs} suspended Spiriva Respimat 2 .5 MCG/ACT eCW1 ([facility]) 28 ACTUAT tiotropium 0.0025 MG/ACTUAT Me tered Dose Inhaler [Spiriva] Spiriva Respimat 2.5 MCG/ACT Spiriva Respimat 2.5 MCG/ACT 09/04/2019 12:00:00 AM EDT 2.0 {puffs} active Spiriva Respimat 2.5 MCG/ACT eCW1 ([facility]) 28 ACTUAT tiotropium 0.0025 MG/ACTUAT Me tered Dose Inhaler [Spiriva] Spiriva Respimat 2.5 MCG/ACT Spiriva Respimat 2.5 MCG/ACT 09/04/2019 12:00:00 AM EDT 2.0 {puffs} active Spiriva Respimat 2.5 MCG/ACT eCW1 ([facility]) 28 ACTUAT tiotropium 0.0025 MG/ACTUAT Me tered Dose Inhaler [Spiriva] Spiriva Respimat 2.5 MCG/ACT Spiriva Respimat 2.5 MCG/ACT 09/04/2019 12:00:00 AM EDT 2.0 {puffs} suspended Spiriva Respimat 2 .5 MCG/ACT eCW1 ([facility]) 28 ACTUAT tiotropium 0.0025 MG/ACTUAT Me tered Dose Inhaler [Spiriva] Spiriva Respimat 2.5 MCG/ACT Spiriva Respimat 2.5 MCG/ACT 09/04/2019 12:00:00 AM EDT 2.0 {puffs} suspended Spiriva Respimat 2 .5 MCG/ACT eCW1 ([facility]) 28 ACTUAT tiotropium 0.0025 MG/ACTUAT Me tered Dose Inhaler [Spiriva] Spiriva Respimat 2.5 MCG/ACT Spiriva Respimat 2.5 MCG/ACT 09/04/2019 12:00:00 AM EDT 2.0 {puffs} active Spiriva Respimat 2.5 MCG/ACT eCW1 ([facility]) 28 ACTUAT tiotropium 0.0025 MG/ACTUAT Me tered Dose Inhaler [Spiriva] Spiriva Respimat 2.5 MCG/ACT Spiriva Respimat 2.5 MCG/ACT 09/04/2019 12:00:00 AM EDT 2.0 {puffs} suspended Spiriva Respimat 2 .5 MCG/ACT eCW1 ([facility]) 28 ACTUAT tiotropium 0.0025 MG/ACTUAT Me tered Dose Inhaler [Spiriva] Spiriva Respimat 2.5 MCG/ACT Spiriva Respimat 2.5 MCG/ACT 09/04/2019 12:00:00 AM EDT 2.0 {puffs} active Spiriva Respimat 2.5 MCG/ACT eCW1 ([facility]) 28 ACTUAT tiotropium 0.0025 MG/ACTUAT Me tered Dose Inhaler [Spiriva] Spiriva Respimat 2.5 MCG/ACT Spiriva Respimat 2.5 MCG/ACT 09/04/2019 12:00:00 AM EDT 2.0 {puffs} suspended Spiriva Respimat 2 .5 MCG/ACT eCW1 ([facility]) 28 ACTUAT tiotropium 0.0025 MG/ACTUAT Me tered Dose Inhaler [Spiriva] Spiriva Respimat 2.5 MCG/ACT Spiriva Respimat 2.5 MCG/ACT 09/04/2019 12:00:00 AM EDT 2.0 {puffs} suspended Spiriva Respimat 2 .5 MCG/ACT eCW1 ([facility]) 28 ACTUAT tiotropium 0.0025 MG/ACTUAT Me tered Dose Inhaler [Spiriva] Spiriva Respimat 2.5 MCG/ACT Spiriva Respimat 2.5 MCG/ACT 09/04/2019 12:00:00 AM EDT 2.0 {puffs} active Spiriva Respimat 2.5 MCG/ACT eCW1 ([facility]) 28 ACTUAT tiotropium 0.0025 MG/ACTUAT Me tered Dose Inhaler [Spiriva] Spiriva Respimat 2.5 MCG/ACT Spiriva Respimat 2.5 MCG/ACT 09/04/2019 12:00:00 AM EDT 2.0 {puffs} active Spiriva Respimat 2.5 MCG/ACT eCW1 ([facility]) 28 ACTUAT tiotropium 0.0025 MG/ACTUAT Me tered Dose Inhaler [Spiriva] Spiriva Respimat 2.5 MCG/ACT Spiriva Respimat 2.5 MCG/ACT 09/04/2019 12:00:00 AM EDT 2.0 {puffs} suspended Spiriva Respimat 2 .5 MCG/ACT eCW1 ([facility]) 28 ACTUAT tiotropium 0.0025 MG/ACTUAT Me tered Dose Inhaler [Spiriva] Spiriva Respimat 2.5 MCG/ACT Spiriva Respimat 2.5 MCG/ACT 09/04/2019 12:00:00 AM EDT 2.0 {puffs} active Spiriva Respimat 2.5 MCG/ACT eCW1 ([facility]) 28 ACTUAT tiotropium 0.0025 MG/ACTUAT Me tered Dose Inhaler [Spiriva] Spiriva Respimat 2.5 MCG/ACT Spiriva Respimat 2.5 MCG/ACT 09/04/2019 12:00:00 AM EDT 2.0 {puffs} suspended Spiriva Respimat 2 .5 MCG/ACT eCW1 ([facility]) 28 ACTUAT tiotropium 0.0025 MG/ACTUAT Me tered Dose Inhaler [Spiriva] Spiriva Respimat 2.5 MCG/ACT Spiriva Respimat 2.5 MCG/ACT 09/04/2019 12:00:00 AM EDT 2.0 {puffs} active Spiriva Respimat 2.5 MCG/ACT eCW1 ([facility]) 28 ACTUAT tiotropium 0.0025 MG/ACTUAT Me tered Dose Inhaler [Spiriva] Spiriva Respimat 2.5 MCG/ACT Spiriva Respimat 2.5 MCG/ACT 09/04/2019 12:00:00 AM EDT 2.0 {puffs} active Spiriva Respimat 2.5 MCG/ACT eCW1 ([facility]) 28 ACTUAT tiotropium 0.0025 MG/ACTUAT Me tered Dose Inhaler [Spiriva] Spiriva Respimat 2.5 MCG/ACT Spiriva Respimat 2.5 MCG/ACT 09/04/2019 12:00:00 AM EDT 2.0 {puffs} active Spiriva Respimat 2.5 MCG/ACT eCW1 ([facility]) 28 ACTUAT tiotropium 0.0025 MG/ACTUAT Me tered Dose Inhaler [Spiriva] Spiriva Respimat 2.5 MCG/ACT Spiriva Respimat 2.5 MCG/ACT 09/04/2019 12:00:00 AM EDT 2.0 {puffs} active Spiriva Respimat 2.5 MCG/ACT eCW1 ([facility]) 28 ACTUAT tiotropium 0.0025 MG/ACTUAT Me tered Dose Inhaler [Spiriva] Spiriva Respimat 2.5 MCG/ACT Spiriva Respimat 2.5 MCG/ACT 09/04/2019 12:00:00 AM EDT 2.0 {puffs} active Spiriva Respimat 2.5 MCG/ACT eCW1 ([facility]) 28 ACTUAT tiotropium 0.0025 MG/ACTUAT Me tered Dose Inhaler [Spiriva] Spiriva Respimat 2.5 MCG/ACT Spiriva Respimat 2.5 MCG/ACT 09/04/2019 12:00:00 AM EDT 2.0 {puffs} suspended Spiriva Respimat 2 .5 MCG/ACT eCW1 ([facility]) 28 ACTUAT tiotropium 0.0025 MG/ACTUAT Me tered Dose Inhaler [Spiriva] Spiriva Respimat 2.5 MCG/ACT Spiriva Respimat 2.5 MCG/ACT 09/04/2019 12:00:00 AM EDT 2.0 {puffs} active Spiriva Respimat 2.5 MCG/ACT eCW1 ([facility]) 28 ACTUAT tiotropium 0.0025 MG/ACTUAT Me tered Dose Inhaler [Spiriva] Spiriva Respimat 2.5 MCG/ACT Spiriva Respimat 2.5 MCG/ACT 09/04/2019 12:00:00 AM EDT 2.0 {puffs} suspended Spiriva Respimat 2 .5 MCG/ACT eCW1 ([facility]) 28 ACTUAT tiotropium 0.0025 MG/ACTUAT Me tered Dose Inhaler [Spiriva] Spiriva Respimat 2.5 MCG/ACT Spiriva Respimat 2.5 MCG/ACT 09/04/2019 12:00:00 AM EDT 2.0 {puffs} active Spiriva Respimat 2.5 MCG/ACT eCW1 ([facility]) 28 ACTUAT tiotropium 0.0025 MG/ACTUAT Me tered Dose Inhaler [Spiriva] Spiriva Respimat 2.5 MCG/ACT Spiriva Respimat 2.5 MCG/ACT 09/04/2019 12:00:00 AM EDT 2.0 {puffs} active Spiriva Respimat 2.5 MCG/ACT eCW1 ([facility]) 28 ACTUAT tiotropium 0.0025 MG/ACTUAT Me tered Dose Inhaler [Spiriva] Spiriva Respimat 2.5 MCG/ACT Spiriva Respimat 2.5 MCG/ACT 09/04/2019 12:00:00 AM EDT 2.0 {puffs} active Spiriva Respimat 2.5 MCG/ACT eCW1 ([facility]) 28 ACTUAT tiotropium 0.0025 MG/ACTUAT Me tered Dose Inhaler [Spiriva] Spiriva Respimat 2.5 MCG/ACT Spiriva Respimat 2.5 MCG/ACT 09/04/2019 12:00:00 AM EDT 2.0 {puffs} suspended Spiriva Respimat 2 .5 MCG/ACT eCW1 ([facility]) 28 ACTUAT tiotropium 0.0025 MG/ACTUAT Me tered Dose Inhaler [Spiriva] Spiriva Respimat 2.5 MCG/ACT Spiriva Respimat 2.5 MCG/ACT 09/04/2019 12:00:00 AM EDT 2.0 {puffs} suspended Spiriva Respimat 2 .5 MCG/ACT eCW1 ([facility]) 28 ACTUAT tiotropium 0.0025 MG/ACTUAT Me tered Dose Inhaler [Spiriva] Spiriva Respimat 2.5 MCG/ACT Spiriva Respimat 2.5 MCG/ACT 09/04/2019 12:00:00 AM EDT 2.0 {puffs} active Spiriva Respimat 2.5 MCG/ACT eCW1 ([facility]) 28 ACTUAT tiotropium 0.0025 MG/ACTUAT Me tered Dose Inhaler [Spiriva] Spiriva Respimat 2.5 MCG/ACT Spiriva Respimat 2.5 MCG/ACT 09/04/2019 12:00:00 AM EDT 2.0 {puffs} active Spiriva Respimat 2.5 MCG/ACT eCW1 ([facility]) 28 ACTUAT tiotropium 0.0025 MG/ACTUAT Me tered Dose Inhaler [Spiriva] Spiriva Respimat 2.5 MCG/ACT Spiriva Respimat 2.5 MCG/ACT 09/04/2019 12:00:00 AM EDT 2.0 {puffs} active Spiriva Respimat 2.5 MCG/ACT eCW1 ([facility]) 28 ACTUAT tiotropium 0.0025 MG/ACTUAT Me tered Dose Inhaler [Spiriva] Spiriva Respimat 2.5 MCG/ACT Spiriva Respimat 2.5 MCG/ACT 09/04/2019 12:00:00 AM EDT 2.0 {puffs} active Spiriva Respimat 2.5 MCG/ACT eCW1 ([facility]) 28 ACTUAT tiotropium 0.0025 MG/ACTUAT Me tered Dose Inhaler [Spiriva] Spiriva Respimat 2.5 MCG/ACT Spiriva Respimat 2.5 MCG/ACT 09/04/2019 12:00:00 AM EDT 2.0 {puffs} active Spiriva Respimat 2.5 MCG/ACT eCW1 ([facility]) 28 ACTUAT tiotropium 0.0025 MG/ACTUAT Me tered Dose Inhaler [Spiriva] Spiriva Respimat 2.5 MCG/ACT Spiriva Respimat 2.5 MCG/ACT 09/04/2019 12:00:00 AM EDT 2.0 {puffs} suspended Spiriva Respimat 2 .5 MCG/ACT eCW1 ([facility]) Morphine Sulfate 15 MG Extended Release Oral Tablet Mo rphine Sulfate ER 15 MG Morphine Sulfate ER 15 MG 09/03/2019 12:00:00 AM EDT active Morphine Sulfate ER 15 MG eCW1 ([facility]) Morphine Sulfate 15 MG Extended Release Oral Tablet Mo rphine Sulfate ER 15 MG Morphine Sulfate ER 15 MG 09/03/2019 12:00:00 AM EDT active Morphine Sulfate ER 15 MG eCW1 ([facility]) Morphine Sulfate 15 MG Extended Release Oral Tablet Mo rphine Sulfate ER 15 MG Morphine Sulfate ER 15 MG 09/03/2019 12:00:00 AM EDT active Morphine Sulfate ER 15 MG eCW1 ([facility]) Morphine Sulfate 15 MG Extended Release Oral Tablet Mo rphine Sulfate ER 15 MG Morphine Sulfate ER 15 MG 09/03/2019 12:00:00 AM EDT active Morphine Sulfate ER 15 MG eCW1 ([facility]) Morphine Sulfate 15 MG Extended Release Oral Tablet Mo rphine Sulfate ER 15 MG Morphine Sulfate ER 15 MG 09/03/2019 12:00:00 AM EDT active Morphine Sulfate ER 15 MG eCW1 ([facility]) Morphine Sulfate 15 MG Extended Release Oral Tablet Mo rphine Sulfate ER 15 MG Morphine Sulfate ER 15 MG 09/03/2019 12:00:00 AM EDT active Morphine Sulfate ER 15 MG eCW1 ([facility]) Morphine Sulfate 15 MG Extended Release Oral Tablet Mo rphine Sulfate ER 15 MG Morphine Sulfate ER 15 MG 09/03/2019 12:00:00 AM EDT active Morphine Sulfate ER 15 MG eCW1 ([facility]) Morphine Sulfate 15 MG Extended Release Oral Tablet Mo rphine Sulfate ER 15 MG Morphine Sulfate ER 15 MG 09/03/2019 12:00:00 AM EDT active Morphine Sulfate ER 15 MG eCW1 ([facility]) Morphine Sulfate 15 MG Extended Release Oral Tablet Mo rphine Sulfate ER 15 MG Morphine Sulfate ER 15 MG 09/03/2019 12:00:00 AM EDT active Morphine Sulfate ER 15 MG eCW1 ([facility]) Morphine Sulfate 15 MG Extended Release Oral Tablet Mo rphine Sulfate ER 15 MG Morphine Sulfate ER 15 MG 09/03/2019 12:00:00 AM EDT active Morphine Sulfate ER 15 MG eCW1 ([facility]) 50 mg 08/27/2019 12:00:00 AM [...] Primidone 08/26/2019 12:00:00 AM EDT completed MEDENT ([facility], ) 200 ACTUAT Albuterol 0.09 MG/ACTUAT Mete red Dose Inhaler [Ventolin] Ventolin HFA 108 (90 Base) MCG/ACT Ventolin HFA 108 (90 Base) MCG/ACT 08/25/2019 12:00:00 AM EDT 1.0 {puff_as_needed} suspended Ventolin HFA 108 (90 Base) MCG/ACT eCW1 ([facility]) tiotropium 0.018 MG/ACTUAT Inhalant Powder [Spiriva] S piriva HandiHaler 18 MCG Spiriva HandiHaler 18 MCG 08/25/2019 12:00:00 AM EDT active Spiriva HandiHaler 18 MCG eCW1 ([facility]) 200 ACTUAT Albuterol 0.09 MG/ACTUAT Mete red Dose Inhaler [Ventolin] Ventolin HFA 108 (90 Base) MCG/ACT Ventolin HFA 108 (90 Base) MCG/ACT 08/25/2019 12:00:00 AM EDT 1.0 {puff_as_needed} suspended Ventolin HFA 108 (90 Base) MCG/ACT eCW1 ([facility]) 200 ACTUAT Albuterol 0.09 MG/ACTUAT Mete red Dose Inhaler [Ventolin] Ventolin HFA 108 (90 Base) MCG/ACT Ventolin HFA 108 (90 Base) MCG/ACT 08/25/2019 12:00:00 AM EDT 1.0 {puff_as_needed} suspended Ventolin HFA 108 (90 Base) MCG/ACT eCW1 ([facility]) 200 ACTUAT Albuterol 0.09 MG/ACTUAT Mete red Dose Inhaler [Ventolin] Ventolin HFA 108 (90 Base) MCG/ACT Ventolin HFA 108 (90 Base) MCG/ACT 08/25/2019 12:00:00 AM EDT 1.0 {puff_as_needed} suspended Ventolin HFA 108 (90 Base) MCG/ACT eCW1 ([facility]) tiotropium 0.018 MG/ACTUAT Inhalant Powder [Spiriva] S piriva HandiHaler 18 MCG Spiriva HandiHaler 18 MCG 08/25/2019 12:00:00 AM EDT active Spiriva HandiHaler 18 MCG eCW1 ([facility]) 200 ACTUAT Albuterol 0.09 MG/ACTUAT Mete red Dose Inhaler [Ventolin] Ventolin HFA 108 (90 Base) MCG/ACT Ventolin HFA 108 (90 Base) MCG/ACT 08/25/2019 12:00:00 AM EDT 1.0 {puff_as_needed} active Jovani tolin HFA 108 (90 Base) MCG/ACT eCW1 ([facility]) tiotropium 0.018 MG/ACTUAT Inhalant Powder [Spiriva] S piriva HandiHaler 18 MCG Spiriva HandiHaler 18 MCG 08/25/2019 12:00:00 AM EDT active Spiriva HandiHaler 18 MCG eCW1 ([facility]) 200 ACTUAT Albuterol 0.09 MG/ACTUAT Mete red Dose Inhaler [Ventolin] Ventolin HFA 108 (90 Base) MCG/ACT Ventolin HFA 108 (90 Base) MCG/ACT 08/25/2019 12:00:00 AM EDT 1.0 {puff_as_needed} suspended Ventolin HFA 108 (90 Base) MCG/ACT eCW1 ([facility]) 200 ACTUAT Albuterol 0.09 MG/ACTUAT Mete red Dose Inhaler [Ventolin] Ventolin HFA 108 (90 Base) MCG/ACT Ventolin HFA 108 (90 Base) MCG/ACT 08/25/2019 12:00:00 AM EDT 1.0 {puff_as_needed} active Jovani tolin HFA 108 (90 Base) MCG/ACT eCW1 ([facility]) tiotropium 0.018 MG/ACTUAT Inhalant Powder [Spiriva] S piriva HandiHaler 18 MCG Spiriva HandiHaler 18 MCG 08/25/2019 12:00:00 AM EDT active Spiriva HandiHaler 18 MCG eCW1 ([facility]) 200 ACTUAT Albuterol 0.09 MG/ACTUAT Mete red Dose Inhaler [Ventolin] Ventolin HFA 108 (90 Base) MCG/ACT Ventolin HFA 108 (90 Base) MCG/ACT 08/25/2019 12:00:00 AM EDT 1.0 {puff_as_needed} active Jovani tolin HFA 108 (90 Base) MCG/ACT eCW1 ([facility]) tiotropium 0.018 MG/ACTUAT Inhalant Powder [Spiriva] S piriva HandiHaler 18 MCG Spiriva HandiHaler 18 MCG 08/25/2019 12:00:00 AM EDT active Spiriva HandiHaler 18 MCG eCW1 ([facility]) 200 ACTUAT Albuterol 0.09 MG/ACTUAT Mete red Dose Inhaler [Ventolin] Ventolin HFA 108 (90 Base) MCG/ACT Ventolin HFA 108 (90 Base) MCG/ACT 08/25/2019 12:00:00 AM EDT 1.0 {puff_as_needed} active Jovani tolin HFA 108 (90 Base) MCG/ACT eCW1 ([facility]) 200 ACTUAT Albuterol 0.09 MG/ACTUAT Mete red Dose Inhaler [Ventolin] Ventolin HFA 108 (90 Base) MCG/ACT Ventolin HFA 108 (90 Base) MCG/ACT 08/25/2019 12:00:00 AM EDT 1.0 {puff_as_needed} suspended Ventolin HFA 108 (90 Base) MCG/ACT eCW1 ([facility]) 200 ACTUAT Albuterol 0.09 MG/ACTUAT Mete red Dose Inhaler [Ventolin] Ventolin HFA 108 (90 Base) MCG/ACT Ventolin HFA 108 (90 Base) MCG/ACT 08/25/2019 12:00:00 AM EDT 1.0 {puff_as_needed} suspended Ventolin HFA 108 (90 Base) MCG/ACT eCW1 ([facility]) 200 ACTUAT Albuterol 0.09 MG/ACTUAT Mete red Dose Inhaler [Ventolin] Ventolin HFA 108 (90 Base) MCG/ACT Ventolin HFA 108 (90 Base) MCG/ACT 08/25/2019 12:00:00 AM EDT 1.0 {puff_as_needed} suspended Ventolin HFA 108 (90 Base) MCG/ACT eCW1 ([facility]) 200 ACTUAT Albuterol 0.09 MG/ACTUAT Mete red Dose Inhaler [Ventolin] Ventolin HFA 108 (90 Base) MCG/ACT Ventolin HFA 108 (90 Base) MCG/ACT 08/25/2019 12:00:00 AM EDT 1.0 {puff_as_needed} suspended Ventolin HFA 108 (90 Base) MCG/ACT eCW1 ([facility]) 200 ACTUAT Albuterol 0.09 MG/ACTUAT Mete red Dose Inhaler [Ventolin] Ventolin HFA 108 (90 Base) MCG/ACT Ventolin HFA 108 (90 Base) MCG/ACT 08/25/2019 12:00:00 AM EDT 1.0 {puff_as_needed} suspended Ventolin HFA 108 (90 Base) MCG/ACT eCW1 ([facility]) 200 ACTUAT Albuterol 0.09 MG/ACTUAT Mete red Dose Inhaler [Ventolin] Ventolin HFA 108 (90 Base) MCG/ACT Ventolin HFA 108 (90 Base) MCG/ACT 08/25/2019 12:00:00 AM EDT 1.0 {puff_as_needed} suspended Ventolin HFA 108 (90 Base) MCG/ACT eCW1 ([facility]) 200 ACTUAT Albuterol 0.09 MG/ACTUAT Mete red Dose Inhaler [Ventolin] Ventolin HFA 108 (90 Base) MCG/ACT Ventolin HFA 108 (90 Base) MCG/ACT 08/25/2019 12:00:00 AM EDT 1.0 {puff_as_needed} active Jovani tolin HFA 108 (90 Base) MCG/ACT eCW1 ([facility]) 200 ACTUAT Albuterol 0.09 MG/ACTUAT Mete red Dose Inhaler [Ventolin] Ventolin HFA 108 (90 Base) MCG/ACT Ventolin HFA 108 (90 Base) MCG/ACT 08/25/2019 12:00:00 AM EDT 1.0 {puff_as_needed} suspended Ventolin HFA 108 (90 Base) MCG/ACT eCW1 ([facility]) tiotropium 0.018 MG/ACTUAT Inhalant Powder [Spiriva] S piriva HandiHaler 18 MCG Spiriva HandiHaler 18 MCG 08/25/2019 12:00:00 AM EDT active Spiriva HandiHaler 18 MCG eCW1 ([facility]) 200 ACTUAT Albuterol 0.09 MG/ACTUAT Mete red Dose Inhaler [Ventolin] Ventolin HFA 108 (90 Base) MCG/ACT Ventolin HFA 108 (90 Base) MCG/ACT 08/25/2019 12:00:00 AM EDT 1.0 {puff_as_needed} suspended Ventolin HFA 108 (90 Base) MCG/ACT eCW1 ([facility]) 200 ACTUAT Albuterol 0.09 MG/ACTUAT Mete red Dose Inhaler [Ventolin] Ventolin HFA 108 (90 Base) MCG/ACT Ventolin HFA 108 (90 Base) MCG/ACT 08/25/2019 12:00:00 AM EDT 1.0 {puff_as_needed} active Jovani tolin HFA 108 (90 Base) MCG/ACT eCW1 ([facility]) 200 ACTUAT Albuterol 0.09 MG/ACTUAT Mete red Dose Inhaler [Ventolin] Ventolin HFA 108 (90 Base) MCG/ACT Ventolin HFA 108 (90 Base) MCG/ACT 08/25/2019 12:00:00 AM EDT 1.0 {puff_as_needed} active Jovani tolin HFA 108 (90 Base) MCG/ACT eCW1 ([facility]) 200 ACTUAT Albuterol 0.09 MG/ACTUAT Mete red Dose Inhaler [Ventolin] Ventolin HFA 108 (90 Base) MCG/ACT Ventolin HFA 108 (90 Base) MCG/ACT 08/25/2019 12:00:00 AM EDT 1.0 {puff_as_needed} suspended Ventolin HFA 108 (90 Base) MCG/ACT eCW1 ([facility]) 200 ACTUAT Albuterol 0.09 MG/ACTUAT Mete red Dose Inhaler [Ventolin] Ventolin HFA 108 (90 Base) MCG/ACT Ventolin HFA 108 (90 Base) MCG/ACT 08/25/2019 12:00:00 AM EDT 1.0 {puff_as_needed} suspended Ventolin HFA 108 (90 Base) MCG/ACT eCW1 ([facility]) 200 ACTUAT Albuterol 0.09 MG/ACTUAT Mete red Dose Inhaler [Ventolin] Ventolin HFA 108 (90 Base) MCG/ACT Ventolin HFA 108 (90 Base) MCG/ACT 08/25/2019 12:00:00 AM EDT 1.0 {puff_as_needed} suspended Ventolin HFA 108 (90 Base) MCG/ACT eCW1 ([facility]) 200 ACTUAT Albuterol 0.09 MG/ACTUAT Mete red Dose Inhaler [Ventolin] Ventolin HFA 108 (90 Base) MCG/ACT Ventolin HFA 108 (90 Base) MCG/ACT 08/25/2019 12:00:00 AM EDT 1.0 {puff_as_needed} suspended Ventolin HFA 108 (90 Base) MCG/ACT eCW1 ([facility]) 200 ACTUAT Albuterol 0.09 MG/ACTUAT Mete red Dose Inhaler [Ventolin] Ventolin HFA 108 (90 Base) MCG/ACT Ventolin HFA 108 (90 Base) MCG/ACT 08/25/2019 12:00:00 AM EDT 1.0 {puff_as_needed} suspended Ventolin HFA 108 (90 Base) MCG/ACT eCW1 ([facility]) 200 ACTUAT Albuterol 0.09 MG/ACTUAT Mete red Dose Inhaler [Ventolin] Ventolin HFA 108 (90 Base) MCG/ACT Ventolin HFA 108 (90 Base) MCG/ACT 08/25/2019 12:00:00 AM EDT 1.0 {puff_as_needed} suspended Ventolin HFA 108 (90 Base) MCG/ACT eCW1 ([facility]) 200 ACTUAT Albuterol 0.09 MG/ACTUAT Mete red Dose Inhaler [Ventolin] Ventolin HFA 108 (90 Base) MCG/ACT Ventolin HFA 108 (90 Base) MCG/ACT 08/25/2019 12:00:00 AM EDT 1.0 {puff_as_needed} suspended Ventolin HFA 108 (90 Base) MCG/ACT eCW1 ([facility]) tiotropium 0.018 MG/ACTUAT Inhalant Powder [Spiriva] S piriva HandiHaler 18 MCG Spiriva HandiHaler 18 MCG 08/25/2019 12:00:00 AM EDT active Spiriva HandiHaler 18 MCG eCW1 ([facility]) 200 ACTUAT Albuterol 0.09 MG/ACTUAT Mete red Dose Inhaler [Ventolin] Ventolin HFA 108 (90 Base) MCG/ACT Ventolin HFA 108 (90 Base) MCG/ACT 08/25/2019 12:00:00 AM EDT 1.0 {puff_as_needed} suspended Ventolin HFA 108 (90 Base) MCG/ACT eCW1 ([facility]) tiotropium 0.018 MG/ACTUAT Inhalant Powder [Spiriva] S piriva HandiHaler 18 MCG Spiriva HandiHaler 18 MCG 08/25/2019 12:00:00 AM EDT active Spiriva HandiHaler 18 MCG eCW1 ([facility]) 200 ACTUAT Albuterol 0.09 MG/ACTUAT Mete red Dose Inhaler [Ventolin] Ventolin HFA 108 (90 Base) MCG/ACT Ventolin HFA 108 (90 Base) MCG/ACT 08/25/2019 12:00:00 AM EDT 1.0 {puff_as_needed} active Jovani tolin HFA 108 (90 Base) MCG/ACT eCW1 ([facility]) 10-325 mg 08/15/2019 12:00:00 AM [...] {tablet_as_needed} active Percocet 10-3 25 MG eCW1 ([facility]) Acetaminophen 325 MG / Oxycodone Hydroch loride 10 MG Oral Tablet [Percocet] Percocet 10-325 MG Percocet 10-325 MG 08/07/2019 12:00:00 AM EDT 1.0 {tablet_as_needed} suspended Percocet 10 -325 MG eCW1 ([facility]) Acetaminophen 325 MG / Oxycodone Hydroch loride 10 MG Oral Tablet [Percocet] Percocet 10-325 MG Percocet 10-325 MG 08/07/2019 12:00:00 AM EDT 1.0 {tablet_as_needed} suspended Percocet 10 -325 MG eCW1 ([facility]) Acetaminophen 325 MG / Oxycodone Hydroch loride 10 MG Oral Tablet [Percocet] Percocet 10-325 MG Percocet 10-325 MG 08/07/2019 12:00:00 AM EDT 1.0 {tablet_as_needed} active Percocet 10-3 25 MG eCW1 ([facility]) Acetaminophen 325 MG / Oxycodone Hydroch loride 10 MG Oral Tablet [Percocet] Percocet 10-325 MG Percocet 10-325 MG 08/07/2019 12:00:00 AM EDT 1.0 {tablet_as_needed} suspended Percocet 10 -325 MG eCW1 ([facility]) Acetaminophen 325 MG / Oxycodone Hydroch loride 10 MG Oral Tablet [Percocet] Percocet 10-325 MG Percocet 10-325 MG 08/07/2019 12:00:00 AM EDT 1.0 {tablet_as_needed} suspended Percocet 10 -325 MG eCW1 ([facility]) Acetaminophen 325 MG / Oxycodone Hydroch loride 10 MG Oral Tablet [Percocet] Percocet 10-325 MG Percocet 10-325 MG 08/07/2019 12:00:00 AM EDT 1.0 {tablet_as_needed} active Percocet 10-3 25 MG eCW1 ([facility]) Acetaminophen 325 MG / Oxycodone Hydroch loride 10 MG Oral Tablet [Percocet] Percocet 10-325 MG Percocet 10-325 MG 08/07/2019 12:00:00 AM EDT 1.0 {tablet_as_needed} suspended Percocet 10 -325 MG eCW1 ([facility]) Acetaminophen 325 MG / Oxycodone Hydroch loride 10 MG Oral Tablet [Percocet] Percocet 10-325 MG Percocet 10-325 MG 08/07/2019 12:00:00 AM EDT 1.0 {tablet_as_needed} active Percocet 10-3 25 MG eCW1 ([facility]) Acetaminophen 325 MG / Oxycodone Hydroch loride 10 MG Oral Tablet [Percocet] Percocet 10-325 MG Percocet 10-325 MG 08/07/2019 12:00:00 AM EDT 1.0 {tablet_as_needed} active Percocet 10-3 25 MG eCW1 ([facility]) Acetaminophen 325 MG / Oxycodone Hydroch loride 10 MG Oral Tablet [Percocet] Percocet 10-325 MG Percocet 10-325 MG 08/07/2019 12:00:00 AM EDT 1.0 {tablet_as_needed} active Percocet 10-3 25 MG eCW1 ([facility]) Acetaminophen 325 MG / Oxycodone Hydroch loride 10 MG Oral Tablet [Percocet] Percocet 10-325 MG Percocet 10-325 MG 08/07/2019 12:00:00 AM EDT 1.0 {tablet_as_needed} active Percocet 10-3 25 MG eCW1 ([facility]) Acetaminophen 325 MG / Oxycodone Hydroch loride 10 MG Oral Tablet [Percocet] Percocet 10-325 MG Percocet 10-325 MG 08/07/2019 12:00:00 AM EDT 1.0 {tablet_as_needed} active Percocet 10-3 25 MG eCW1 ([facility]) Acetaminophen 325 MG / Oxycodone Hydroch loride 10 MG Oral Tablet [Percocet] Percocet 10-325 MG Percocet 10-325 MG 08/07/2019 12:00:00 AM EDT 1.0 {tablet_as_needed} suspended Percocet 10 -325 MG eCW1 ([facility]) Acetaminophen 325 MG / Oxycodone Hydroch loride 10 MG Oral Tablet [Percocet] Percocet 10-325 MG Percocet 10-325 MG 08/07/2019 12:00:00 AM EDT 1.0 {tablet_as_needed} suspended Percocet 10 -325 MG eCW1 ([facility]) Acetaminophen 325 MG / Oxycodone Hydroch loride 10 MG Oral Tablet [Percocet] Percocet 10-325 MG Percocet 10-325 MG 08/07/2019 12:00:00 AM EDT 1.0 {tablet_as_needed} suspended Percocet 10 -325 MG eCW1 ([facility]) Acetaminophen 325 MG / Oxycodone Hydroch loride 10 MG Oral Tablet [Percocet] Percocet 10-325 MG Percocet 10-325 MG 08/07/2019 12:00:00 AM EDT 1.0 {tablet_as_needed} active Percocet 10-3 25 MG eCW1 ([facility]) Acetaminophen 325 MG / Oxycodone Hydroch loride 10 MG Oral Tablet [Percocet] Percocet 10-325 MG Percocet 10-325 MG 08/07/2019 12:00:00 AM EDT 1.0 {tablet_as_needed} active Percocet 10-3 25 MG eCW1 ([facility]) Acetaminophen 325 MG / Oxycodone Hydroch loride 10 MG Oral Tablet [Percocet] Percocet 10-325 MG Percocet 10-325 MG 08/07/2019 12:00:00 AM EDT 1.0 {tablet_as_needed} active Percocet 10-3 25 MG eCW1 ([facility]) Acetaminophen 325 MG / Oxycodone Hydroch loride 10 MG Oral Tablet [Percocet] Percocet 10-325 MG Percocet 10-325 MG 08/07/2019 12:00:00 AM EDT 1.0 {tablet_as_needed} active Percocet 10-3 25 MG eCW1 ([facility]) Acetaminophen 325 MG / Oxycodone Hydroch loride 10 MG Oral Tablet [Percocet] Percocet 10-325 MG Percocet 10-325 MG 08/07/2019 12:00:00 AM EDT 1.0 {tablet_as_needed} suspended Percocet 10 -325 MG eCW1 ([facility]) Acetaminophen 325 MG / Oxycodone Hydroch loride 10 MG Oral Tablet [Percocet] Percocet 10-325 MG Percocet 10-325 MG 08/07/2019 12:00:00 AM EDT 1.0 {tablet_as_needed} active Percocet 10-3 25 MG eCW1 ([facility]) Acetaminophen 325 MG / Oxycodone Hydroch loride 10 MG Oral Tablet [Percocet] Percocet 10-325 MG Percocet 10-325 MG 08/07/2019 12:00:00 AM EDT 1.0 {tablet_as_needed} active Percocet 10-3 25 MG eCW1 ([facility]) Acetaminophen 325 MG / Oxycodone Hydroch loride 10 MG Oral Tablet [Percocet] Percocet 10-325 MG Percocet 10-325 MG 08/07/2019 12:00:00 AM EDT 1.0 {tablet_as_needed} suspended Percocet 10 -325 MG eCW1 ([facility]) Acetaminophen 325 MG / Oxycodone Hydroch loride 10 MG Oral Tablet [Percocet] Percocet 10-325 MG Percocet 10-325 MG 08/07/2019 12:00:00 AM EDT 1.0 {tablet_as_needed} suspended Percocet 10 -325 MG eCW1 ([facility]) Acetaminophen 325 MG / Oxycodone Hydroch loride 10 MG Oral Tablet [Percocet] Percocet 10-325 MG Percocet 10-325 MG 08/07/2019 12:00:00 AM EDT 1.0 {tablet_as_needed} suspended Percocet 10 -325 MG eCW1 ([facility]) Acetaminophen 325 MG / Oxycodone Hydroch loride 10 MG Oral Tablet [Percocet] Percocet 10-325 MG Percocet 10-325 MG 08/07/2019 12:00:00 AM EDT 1.0 {tablet_as_needed} active Percocet 10-3 25 MG eCW1 ([facility]) Acetaminophen 325 MG / Oxycodone Hydroch loride 10 MG Oral Tablet [Percocet] Percocet 10-325 MG Percocet 10-325 MG 08/07/2019 12:00:00 AM EDT 1.0 {tablet_as_needed} active Percocet 10-3 25 MG eCW1 ([facility]) Acetaminophen 325 MG / Oxycodone Hydroch loride 10 MG Oral Tablet [Percocet] Percocet 10-325 MG Percocet 10-325 MG 08/07/2019 12:00:00 AM EDT 1.0 {tablet_as_needed} active Percocet 10-3 25 MG eCW1 ([facility]) 15 mg 08/06/2019 12:00:00 AM [...] ac tive Propranolol HCl 10 MG eCW1 ([facility]) Chlorthalidone 25 MG Oral Tablet Chlorthalidone 25 MG 2019 12:00:00 AM EDT 1.0 {tablet_in_the_morning_with_food} active Chlorthalidone 25 MG eCW1 ([facility]) 10 mg 08/04/2019 12:00:00 AM EDT tablet 60 TAKE ONE TABLET BY MOUTH TWICE A DAY TAKE ONE TABLET BY MOUTH TWICE A DAY SOLD: 08/05/2019 [facility] Morphine Sulfate 15 MG Extended Release Oral Tablet Mo rphine Sulfate ER 15 MG Morphine Sulfate ER 15 MG 07/28/2019 12:00:00 AM EDT active Morphine Sulfate ER 15 MG eCW1 ([facility]) Morphine Sulfate 15 MG Extended Release Oral Tablet Mo rphine Sulfate ER 15 MG Morphine Sulfate ER 15 MG 07/28/2019 12:00:00 AM EDT active Morphine Sulfate ER 15 MG eCW1 ([facility]) Morphine Sulfate 15 MG Extended Release Oral Tablet Mo rphine Sulfate ER 15 MG Morphine Sulfate ER 15 MG 07/28/2019 12:00:00 AM EDT active Morphine Sulfate ER 15 MG eCW1 ([facility]) Morphine Sulfate 15 MG Extended Release Oral Tablet Mo rphine Sulfate ER 15 MG Morphine Sulfate ER 15 MG 07/28/2019 12:00:00 AM EDT active Morphine Sulfate ER 15 MG eCW1 ([facility]) Morphine Sulfate 15 MG Extended Release Oral Tablet Mo rphine Sulfate ER 15 MG Morphine Sulfate ER 15 MG 07/28/2019 12:00:00 AM EDT active Morphine Sulfate ER 15 MG eCW1 ([facility]) 300 mg 07/28/2019 12:00:00 AM EDT capsule 60 TAKE ONE CAPSULE BY MOUTH TWICE A DAY, MAXIMUM DAILY DOSE = 2 CAPSULES TAKE ONE CAPSULE BY MOUTH TWICE A DAY, MAXIMUM DAILY DOSE = 2 CAPSULES SOLD: 08/26/2019 [facility] Morphine Sulfate 15 MG Extended Release Oral Tablet Mo rphine Sulfate ER 15 MG Morphine Sulfate ER 15 MG 07/28/2019 12:00:00 AM EDT active Morphine Sulfate ER 15 MG eCW1 ([facility]) Morphine Sulfate 15 MG Extended Release Oral Tablet Mo rphine Sulfate ER 15 MG Morphine Sulfate ER 15 MG 07/28/2019 12:00:00 AM EDT active Morphine Sulfate ER 15 MG eCW1 ([facility]) Morphine Sulfate 15 MG Extended Release Oral Tablet Mo rphine Sulfate ER 15 MG Morphine Sulfate ER 15 MG 07/28/2019 12:00:00 AM EDT active Morphine Sulfate ER 15 MG eCW1 ([facility]) 300 mg 07/28/2019 12:00:00 AM [...] active Morphine Sulfate ER 15 MG eCW1 ([facility]) Morphine Sulfate 15 MG Extended Release Oral Tablet Mo rphine Sulfate ER 15 MG Morphine Sulfate ER 15 MG 07/28/2019 12:00:00 AM EDT active Morphine Sulfate ER 15 MG eCW1 ([facility]) 10-325 mg 07/17/2019 12:00:00 AM [...] EDT active 1 tablet as needed eCW1 ([facility]) Amitriptyline Hydrochloride 25 MG Oral Tablet [...] active Morphine Sulfate ER 15 MG eCW1 ([facility]) Morphine Sulfate 15 MG Extended Release Oral Tablet Mo rphine Sulfate ER 15 MG Morphine Sulfate ER 15 MG 07/07/2019 12:00:00 AM EDT active Morphine Sulfate ER 15 MG eCW1 ([facility]) Morphine Sulfate 15 MG Extended Release Oral Tablet Mo rphine Sulfate ER 15 MG Morphine Sulfate ER 15 MG 07/07/2019 12:00:00 AM EDT active 1 to 2 as directed eCW1 ([facility]) 15 mg 07/07/2019 12:00:00 AM EDT tablet extended release 90 TAKE 1 TABLET BY MOUTH EVERY MORNING AND 2 TABLETS AT BEDTIME, MAXIMUM DAILY DOSE = 3 TABLETS TAKE 1 TABLET BY MOUTH EVERY MORNING AND 2 TABLETS AT BEDTIME, MAXIMUM DAILY DOSE = 3 TABLETS SOLD: 07/08/2019 [facility] Morphine Sulfate 15 MG Extended Release Oral Tablet Mo rphine Sulfate ER 15 MG Morphine Sulfate ER 15 MG 07/07/2019 12:00:00 AM EDT active Morphine Sulfate ER 15 MG eCW1 ([facility]) 100,000 unit/gram 06/25/2019 12:00:00 AM EDT cream [...] {tablet_as_needed} active Percocet 10-3 25 MG eCW1 ([facility]) Acetaminophen 325 MG / Oxycodone Hydroch loride 10 MG Oral Tablet [Percocet] Percocet 10-325 MG Percocet 10-325 MG 06/17/2019 12:00:00 AM EDT 1.0 {tablet_as_needed} active Percocet 10-3 25 MG eCW1 ([facility]) Acetaminophen 325 MG / Oxycodone Hydroch loride 10 MG Oral Tablet [Percocet] Percocet 10-325 MG Percocet 10-325 MG 06/17/2019 12:00:00 AM EDT active 1 tablet as needed eCW1 ([facility]) Acetaminophen 325 MG / Oxycodone Hydroch loride 10 MG Oral Tablet [Percocet] Percocet 10-325 MG Percocet 10-325 MG 06/17/2019 12:00:00 AM EDT 1.0 {tablet_as_needed} active Percocet 10-3 25 MG eCW1 ([facility]) Acetaminophen 325 MG / Oxycodone Hydroch loride 10 MG Oral Tablet [Percocet] Percocet 10-325 MG Percocet 10-325 MG 06/17/2019 12:00:00 AM EDT active 1 tablet as needed eCW1 ([facility]) Acetaminophen 325 MG / Oxycodone Hydroch loride 10 MG Oral Tablet [Percocet] Percocet 10-325 MG Percocet 10-325 MG 06/17/2019 12:00:00 AM EDT 1.0 {tablet_as_needed} active Percocet 10-3 25 MG eCW1 ([facility]) Acetaminophen 325 MG / Oxycodone Hydroch loride 10 MG Oral Tablet [Percocet] Percocet 10-325 MG Percocet 10-325 MG 06/17/2019 12:00:00 AM EDT 1.0 {tablet_as_needed} active Percocet 10-3 25 MG eCW1 ([facility]) Acetaminophen 325 MG / Oxycodone Hydroch loride 10 MG Oral Tablet [Percocet] Percocet 10-325 MG Percocet 10-325 MG 06/17/2019 12:00:00 AM EDT 1.0 {tablet_as_needed} active Percocet 10-3 25 MG eCW1 ([facility]) 5 mg 06/11/2019 12:00:00 AM EDT tablet [...] active 1 to 2 as directed eCW1 ([facility]) Morphine Sulfate 15 MG Extended Release Oral Tablet Mo rphine Sulfate ER 15 MG Morphine Sulfate ER 15 MG 06/03/2019 12:00:00 AM EDT active 1 to 2 as directed eCW1 ([facility]) 40 mg 06/03/2019 12:00:00 AM [...] MOUTH EVERY DAY SOLD: 08/13/2019 [facility] 50 mg 06/03/2019 12:00:00 AM EDT tablet 90 TAKE ONE TABLET BY MOUTH EVERY DAY TAKE ONE TABLET BY MOUTH EVERY DAY SOLD: 06/05/2019 [facility] Morphine Sulfate 15 MG Extended Release Oral Tablet Mo rphine Sulfate ER 15 MG Morphine Sulfate ER 15 MG 06/03/2019 12:00:00 AM EDT active 1 to 2 as directed eCW1 ([facility]) 350 mg 05/31/2019 12:00:00 AM EDT tablet [...] GROIN TWO TIMES A DAY SOLD: 06/13/2019 [facility] 10-325 mg 05/20/2019 12:00:00 AM EDT [...] EDT active 1 tablet as needed eCW1 ([facility]) Acetaminophen 325 MG / Oxycodone Hydroch loride 10 MG Oral Tablet [Percocet] Percocet 10-325 MG Percocet 10-325 MG 05/18/2019 12:00:00 AM EDT active 1 tablet as needed eCW1 ([facility]) Acetaminophen 325 MG / Oxycodone Hydroch loride 10 MG Oral Tablet [Percocet] Percocet 10-325 MG Percocet 10-325 MG 05/18/2019 12:00:00 AM EDT active 1 tablet as needed eCW1 ([facility]) 800 mg 05/16/2019 12:00:00 AM EDT [...] active 1 to 2 as directed eCW1 ([facility]) Morphine Sulfate 15 MG Extended Release Oral Tablet Mo rphine Sulfate ER 15 MG Morphine Sulfate ER 15 MG 05/04/2019 12:00:00 AM EDT active 1 to 2 as directed eCW1 ([facility]) Morphine Sulfate 15 MG Extended Release Oral Tablet Mo rphine Sulfate ER 15 MG Morphine Sulfate ER 15 MG 05/04/2019 12:00:00 AM EDT active 1 to 2 as directed eCW1 ([facility]) 100,000 unit/gram 04/30/2019 12:00:00 AM [...] EDT active 1 tablet as needed eCW1 ([facility]) 10-325 mg 04/21/2019 12:00:00 AM EDT [...] active 1 to 2 as directed eCW1 ([facility]) Morphine Sulfate 15 MG Extended Release Oral Tablet Mo rphine Sulfate ER 15 MG Morphine Sulfate ER 15 MG 04/08/2019 12:00:00 AM EST active 1 to 2 as directed eCW1 ([facility]) Amitriptyline Hydrochloride 25 MG Oral [...] 10 days, Max Daily Dose: 20 mg [facility] 20 mg 03/27/2019 12:00:00 AM [...] 12:00:00 AM EST active 1 tablet eCW1 ([facility]) atorvastatin 40 MG Oral Tablet Atorvastatin Calcium 40 MG Atorvastatin Calcium 40 MG 03/26/2019 12:00:00 AM EST 1.0 {tablet} activ e Atorvastatin Calcium 40 MG eCW1 ([facility]) atorvastatin 40 MG Oral Tablet Atorvastatin Calcium 40 MG Atorvastatin Calcium 40 MG 03/26/2019 12:00:00 AM EST active 1 tablet eCW1 ([facility]) atorvastatin 40 MG Oral Tablet Atorvastatin Calcium 40 MG Atorvastatin Calcium 40 MG 03/26/2019 12:00:00 AM EST 1.0 {tablet} activ e Atorvastatin Calcium 40 MG eCW1 ([facility]) atorvastatin 40 MG Oral Tablet Atorvastatin Calcium 40 MG Atorvastatin Calcium 40 MG 03/26/2019 12:00:00 AM EST 1.0 {tablet} activ e Atorvastatin Calcium 40 MG eCW1 ([facility]) atorvastatin 40 MG Oral Tablet Atorvastatin Calcium 40 MG Atorvastatin Calcium 40 MG 03/26/2019 12:00:00 AM EST 1.0 {tablet} activ e Atorvastatin Calcium 40 MG eCW1 ([facility]) atorvastatin 40 MG Oral Tablet Atorvastatin Calcium 40 MG Atorvastatin Calcium 40 MG 03/26/2019 12:00:00 AM EST 1.0 {tablet} activ e Atorvastatin Calcium 40 MG eCW1 ([facility]) atorvastatin 40 MG Oral Tablet Atorvastatin Calcium 40 MG Atorvastatin Calcium 40 MG 03/26/2019 12:00:00 AM EST 1.0 {tablet} activ e Atorvastatin Calcium 40 MG eCW1 ([facility]) atorvastatin 40 MG Oral Tablet Atorvastatin Calcium 40 MG Atorvastatin Calcium 40 MG 03/26/2019 12:00:00 AM EST 1.0 {tablet} activ e Atorvastatin Calcium 40 MG eCW1 ([facility]) atorvastatin 40 MG Oral Tablet Atorvastatin Calcium 40 MG Atorvastatin Calcium 40 MG 03/26/2019 12:00:00 AM EST 1.0 {tablet} activ e Atorvastatin Calcium 40 MG eCW1 ([facility]) atorvastatin 40 MG Oral Tablet Atorvastatin Calcium 40 MG Atorvastatin Calcium 40 MG 03/26/2019 12:00:00 AM EST 1.0 {tablet} activ e Atorvastatin Calcium 40 MG eCW1 ([facility]) atorvastatin 40 MG Oral Tablet Atorvastatin Calcium 40 MG Atorvastatin Calcium 40 MG 03/26/2019 12:00:00 AM EST 1.0 {tablet} activ e Atorvastatin Calcium 40 MG eCW1 ([facility]) atorvastatin 40 MG Oral Tablet Atorvastatin Calcium 40 MG Atorvastatin Calcium 40 MG 03/26/2019 12:00:00 AM EST 1.0 {tablet} activ e Atorvastatin Calcium 40 MG eCW1 ([facility]) atorvastatin 40 MG Oral Tablet Atorvastatin Calcium 40 MG Atorvastatin Calcium 40 MG 03/26/2019 12:00:00 AM EST 1.0 {tablet} activ e Atorvastatin Calcium 40 MG eCW1 ([facility]) atorvastatin 40 MG Oral Tablet Atorvastatin Calcium 40 MG Atorvastatin Calcium 40 MG 03/26/2019 12:00:00 AM EST 1.0 {tablet} activ e Atorvastatin Calcium 40 MG eCW1 ([facility]) atorvastatin 40 MG Oral Tablet Atorvastatin Calcium 40 MG Atorvastatin Calcium 40 MG 03/26/2019 12:00:00 AM EST 1.0 {tablet} activ e Atorvastatin Calcium 40 MG eCW1 ([facility]) atorvastatin 40 MG Oral Tablet Atorvastatin Calcium 40 MG Atorvastatin Calcium 40 MG 03/26/2019 12:00:00 AM EST 1.0 {tablet} activ e Atorvastatin Calcium 40 MG eCW1 ([facility]) atorvastatin 40 MG Oral Tablet Atorvastatin Calcium 40 MG Atorvastatin Calcium 40 MG 03/26/2019 12:00:00 AM EST 1.0 {tablet} activ e Atorvastatin Calcium 40 MG eCW1 ([facility]) atorvastatin 40 MG Oral Tablet Atorvastatin Calcium 40 MG Atorvastatin Calcium 40 MG 03/26/2019 12:00:00 AM EST 1.0 {tablet} activ e Atorvastatin Calcium 40 MG eCW1 ([facility]) atorvastatin 40 MG Oral Tablet Atorvastatin Calcium 40 MG Atorvastatin Calcium 40 MG 03/26/2019 12:00:00 AM EST 1.0 {tablet} activ e Atorvastatin Calcium 40 MG eCW1 ([facility]) atorvastatin 40 MG Oral Tablet Atorvastatin Calcium 40 MG Atorvastatin Calcium 40 MG 03/26/2019 12:00:00 AM EST 1.0 {tablet} activ e Atorvastatin Calcium 40 MG eCW1 ([facility]) atorvastatin 40 MG Oral Tablet Atorvastatin Calcium 40 MG Atorvastatin Calcium 40 MG 03/26/2019 12:00:00 AM EST 1.0 {tablet} activ e Atorvastatin Calcium 40 MG eCW1 ([facility]) Ergocalciferol 45593 UNT Oral Capsule Vi tamin D (Ergocalciferol) 1.25 MG (38278 UT) Oral Capsule (ERGOCALCIFEROL) Vitamin D (Ergocalciferol) 1.25 MG (5000 0 UT) Oral Capsule (ERGOCALCIFEROL) 03/26/2019 12:00:00 AM EST active [facility] Losartan Potassium 50 MG Oral Tablet [place] Potassium 50 MG Oral Tablet (COZAAR) Losartan Potassium 50 MG Oral Tablet (COZAAR) 03/26/19 20 12:00:00 AM EST [facility] atorvastatin 40 MG Oral Tablet Atorvastatin Calcium 40 MG Oral Tablet (LIPITOR) Atorvastatin Calcium 40 MG Oral Tablet (LIPITOR) 03/26/2019 12:00:00 AM EST [facility] atorvastatin 40 MG Oral Tablet Atorvastatin Calcium 40 MG Atorvastatin Calcium 40 MG 03/26/2019 12:00:00 AM EST active 1 tablet eCW1 ([facility]) atorvastatin 40 MG Oral Tablet Atorvastatin Calcium 40 MG Atorvastatin Calcium 40 MG 03/26/2019 12:00:00 AM EST 1.0 {tablet} activ e Atorvastatin Calcium 40 MG eCW1 ([facility]) Nystatin 168524 UNT/ML Topical Cream Nystatin [id number] U NIT/GM Nystatin [id number] UNIT/GM 03/26/2019 12:00:00 AM EST active 1 application 2g eCW1 ([facility]) atorvastatin 40 MG Oral Tablet Atorvastatin Calcium 40 MG Atorvastatin Calcium 40 MG 03/26/2019 12:00:00 AM EST 1.0 {tablet} activ e Atorvastatin Calcium 40 MG eCW1 ([facility]) atorvastatin 40 MG Oral Tablet Atorvastatin Calcium 40 MG Atorvastatin Calcium 40 MG 03/26/2019 12:00:00 AM EST 1.0 {tablet} activ e Atorvastatin Calcium 40 MG eCW1 ([facility]) atorvastatin 40 MG Oral Tablet Atorvastatin Calcium 40 MG Atorvastatin Calcium 40 MG 03/26/2019 12:00:00 AM EST active 1 tablet eCW1 ([facility]) atorvastatin 40 MG Oral Tablet Atorvastatin Calcium 40 MG Atorvastatin Calcium 40 MG 03/26/2019 12:00:00 AM EST 1.0 {tablet} activ e Atorvastatin Calcium 40 MG eCW1 ([facility]) atorvastatin 40 MG Oral Tablet Atorvastatin Calcium 40 MG Atorvastatin Calcium 40 MG 03/26/2019 12:00:00 AM EST 1.0 {tablet} activ e Atorvastatin Calcium 40 MG eCW1 ([facility]) atorvastatin 40 MG Oral Tablet Atorvastatin Calcium 40 MG Atorvastatin Calcium 40 MG 03/26/2019 12:00:00 AM EST 1.0 {tablet} activ e Atorvastatin Calcium 40 MG eCW1 ([facility]) atorvastatin 40 MG Oral Tablet Atorvastatin Calcium 40 MG Atorvastatin Calcium 40 MG 03/26/2019 12:00:00 AM EST 1.0 {tablet} activ e Atorvastatin Calcium 40 MG eCW1 ([facility]) atorvastatin 40 MG Oral Tablet Atorvastatin Calcium 40 MG Atorvastatin Calcium 40 MG 03/26/2019 12:00:00 AM EST 1.0 {tablet} activ e Atorvastatin Calcium 40 MG eCW1 ([facility]) Nystatin 258571 UNT/ML Topical Cream Nystatin [id number] U NIT/GM Nystatin 577387 UNIT/GM 03/26/2019 12:00:00 AM EST active 1 application 2g eCW1 ([facility]) atorvastatin 40 MG Oral Tablet Atorvastatin Calcium 40 MG Atorvastatin Calcium 40 MG 03/26/2019 12:00:00 AM EST 1.0 {tablet} activ e Atorvastatin Calcium 40 MG eCW1 ([facility]) atorvastatin 40 MG Oral Tablet Atorvastatin Calcium 40 MG Atorvastatin Calcium 40 MG 03/26/2019 12:00:00 AM EST active 1 tablet eCW1 ([facility]) atorvastatin 40 MG Oral Tablet Atorvastatin Calcium 40 MG Atorvastatin Calcium 40 MG 03/26/2019 12:00:00 AM EST 1.0 {tablet} activ e Atorvastatin Calcium 40 MG eCW1 ([facility]) atorvastatin 40 MG Oral Tablet Atorvastatin Calcium 40 MG Atorvastatin Calcium 40 MG 03/26/2019 12:00:00 AM EST 1.0 {tablet} activ e Atorvastatin Calcium 40 MG eCW1 ([facility]) atorvastatin 40 MG Oral Tablet Atorvastatin Calcium 40 MG Atorvastatin Calcium 40 MG 03/26/2019 12:00:00 AM EST 1.0 {tablet} activ e Atorvastatin Calcium 40 MG eCW1 ([facility]) atorvastatin 40 MG Oral Tablet Atorvastatin Calcium 40 MG Atorvastatin Calcium 40 MG 03/26/2019 12:00:00 AM EST 1.0 {tablet} activ e Atorvastatin Calcium 40 MG eCW1 ([facility]) atorvastatin 40 MG Oral Tablet Atorvastatin Calcium 40 MG Atorvastatin Calcium 40 MG 03/26/2019 12:00:00 AM EST 1.0 {tablet} activ e Atorvastatin Calcium 40 MG eCW1 ([facility]) atorvastatin 40 MG Oral Tablet Atorvastatin Calcium 40 MG Atorvastatin Calcium 40 MG 03/26/2019 12:00:00 AM EST 1.0 {tablet} activ e Atorvastatin Calcium 40 MG eCW1 ([facility]) atorvastatin 40 MG Oral Tablet Atorvastatin Calcium 40 MG Atorvastatin Calcium 40 MG 03/26/2019 12:00:00 AM EST 1.0 {tablet} activ e Atorvastatin Calcium 40 MG eCW1 ([facility]) atorvastatin 40 MG Oral Tablet Atorvastatin Calcium 40 MG Atorvastatin Calcium 40 MG 03/26/2019 12:00:00 AM EST 1.0 {tablet} activ e Atorvastatin Calcium 40 MG eCW1 ([facility]) Nystatin 034183 UNT/ML Topical Cream Nystatin 779216 U NIT/GM Nystatin 741646 UNIT/GM 03/26/2019 12:00:00 AM EST active 1 application 2g eCW1 ([facility]) atorvastatin 40 MG Oral Tablet Atorvastatin Calcium 40 MG Atorvastatin Calcium 40 MG 03/26/2019 12:00:00 AM EST 1.0 {tablet} activ e Atorvastatin Calcium 40 MG eCW1 ([facility]) atorvastatin 40 MG Oral Tablet Atorvastatin Calcium 40 MG Atorvastatin Calcium 40 MG 03/26/2019 12:00:00 AM EST 1.0 {tablet} activ e Atorvastatin Calcium 40 MG eCW1 ([facility]) atorvastatin 40 MG Oral Tablet Atorvastatin Calcium 40 MG Atorvastatin Calcium 40 MG 03/26/2019 12:00:00 AM EST 1.0 {tablet} activ e Atorvastatin Calcium 40 MG eCW1 ([facility]) atorvastatin 40 MG Oral Tablet Atorvastatin Calcium 40 MG Atorvastatin Calcium 40 MG 03/26/2019 12:00:00 AM EST 1.0 {tablet} activ e Atorvastatin Calcium 40 MG eCW1 ([facility]) atorvastatin 40 MG Oral Tablet Atorvastatin Calcium 40 MG Atorvastatin Calcium 40 MG 03/26/2019 12:00:00 AM EST 1.0 {tablet} activ e Atorvastatin Calcium 40 MG eCW1 ([facility]) Nystatin 002435 UNT/ML Topical Cream Nystatin 187131 U NIT/GM Nystatin 568265 UNIT/GM 03/26/2019 12:00:00 AM EST active 1 application 2g eCW1 ([facility]) atorvastatin 40 MG Oral Tablet Atorvastatin Calcium 40 MG Atorvastatin Calcium 40 MG 03/26/2019 12:00:00 AM EST 1.0 {tablet} activ e Atorvastatin Calcium 40 MG eCW1 ([facility]) atorvastatin 40 MG Oral Tablet Atorvastatin Calcium 40 MG Atorvastatin Calcium 40 MG 03/26/2019 12:00:00 AM EST active 1 tablet eCW1 ([facility]) atorvastatin 40 MG Oral Tablet Atorvastatin Calcium 40 MG Atorvastatin Calcium 40 MG 03/26/2019 12:00:00 AM EST 1.0 {tablet} activ e Atorvastatin Calcium 40 MG eCW1 ([facility]) atorvastatin 40 MG Oral Tablet Atorvastatin Calcium 40 MG Atorvastatin Calcium 40 MG 03/26/2019 12:00:00 AM EST 1.0 {tablet} activ e Atorvastatin Calcium 40 MG eCW1 ([facility]) atorvastatin 40 MG Oral Tablet Atorvastatin Calcium 40 MG Atorvastatin Calcium 40 MG 03/26/2019 12:00:00 AM EST 1.0 {tablet} activ e Atorvastatin Calcium 40 MG eCW1 ([facility]) atorvastatin 40 MG Oral Tablet Atorvastatin Calcium 40 MG Atorvastatin Calcium 40 MG 03/26/2019 12:00:00 AM EST 1.0 {tablet} activ e Atorvastatin Calcium 40 MG eCW1 ([facility]) atorvastatin 40 MG Oral Tablet Atorvastatin Calcium 40 MG Atorvastatin Calcium 40 MG 03/26/2019 12:00:00 AM EST 1.0 {tablet} activ e Atorvastatin Calcium 40 MG eCW1 ([facility]) atorvastatin 40 MG Oral Tablet Atorvastatin Calcium 40 MG Atorvastatin Calcium 40 MG 03/26/2019 12:00:00 AM EST 1.0 {tablet} activ e Atorvastatin Calcium 40 MG eCW1 ([facility]) atorvastatin 40 MG Oral Tablet Atorvastatin Calcium 40 MG Atorvastatin Calcium 40 MG 03/26/2019 12:00:00 AM EST 1.0 {tablet} activ e Atorvastatin Calcium 40 MG eCW1 ([facility]) atorvastatin 40 MG Oral Tablet Atorvastatin Calcium 40 MG Atorvastatin Calcium 40 MG 03/26/2019 12:00:00 AM EST 1.0 {tablet} activ e Atorvastatin Calcium 40 MG eCW1 ([facility]) atorvastatin 40 MG Oral Tablet Atorvastatin Calcium 40 MG Atorvastatin Calcium 40 MG 03/26/2019 12:00:00 AM EST active 1 tablet eCW1 ([facility]) atorvastatin 40 MG Oral Tablet Atorvastatin Calcium 40 MG Atorvastatin Calcium 40 MG 03/26/2019 12:00:00 AM EST 1.0 {tablet} activ e Atorvastatin Calcium 40 MG eCW1 ([facility]) atorvastatin 40 MG Oral Tablet Atorvastatin Calcium 40 MG Atorvastatin Calcium 40 MG 03/26/2019 12:00:00 AM EST 1.0 {tablet} activ e Atorvastatin Calcium 40 MG eCW1 ([facility]) atorvastatin 40 MG Oral Tablet Atorvastatin Calcium 40 MG Atorvastatin Calcium 40 MG 03/26/2019 12:00:00 AM EST 1.0 {tablet} activ e Atorvastatin Calcium 40 MG eCW1 ([facility]) atorvastatin 40 MG Oral Tablet Atorvastatin Calcium 40 MG Atorvastatin Calcium 40 MG 03/26/2019 12:00:00 AM EST 1.0 {tablet} activ e Atorvastatin Calcium 40 MG eCW1 ([facility]) atorvastatin 40 MG Oral Tablet Atorvastatin Calcium 40 MG Atorvastatin Calcium 40 MG 03/26/2019 12:00:00 AM EST 1.0 {tablet} activ e Atorvastatin Calcium 40 MG eCW1 ([facility]) atorvastatin 40 MG Oral Tablet Atorvastatin Calcium 40 MG Atorvastatin Calcium 40 MG 03/26/2019 12:00:00 AM EST 1.0 {tablet} activ e Atorvastatin Calcium 40 MG eCW1 ([facility]) 10-325 mg 03/26/2019 12:00:00 AM EST tablet 120 TAKE 1 TABLET BY MOUTH EVERY 6 HOURS NEEDED MAXIMUM DAILY DOSE = 4 TABLETS TAKE 1 TABLET BY MOUTH EVERY 6 HOURS NEEDED MAXIMUM DAILY DOSE = 4 TABLETS SOLD: 03/26/2019 [facility] 1,250 mcg (50,000 unit) 03/26/2019 12:00:00 AM EST capsule 4 TAKE 1 CAPSULE BY MOUTH ONCE A WEEK ON MONDAYS TAKE 1 CAPSULE BY MOUTH ONCE A WEEK ON MONDAYS SOLD: 03/27/2019 [facility] atorvastatin 40 MG Oral Tablet Atorvastatin Calcium 40 MG Atorvastatin Calcium 40 MG 03/26/2019 12:00:00 AM EST 1.0 {tablet} activ e Atorvastatin Calcium 40 MG eCW1 ([facility]) atorvastatin 40 MG Oral Tablet Atorvastatin Calcium 40 MG Atorvastatin Calcium 40 MG 03/26/2019 12:00:00 AM EST 1.0 {tablet} activ e Atorvastatin Calcium 40 MG eCW1 ([facility]) atorvastatin 40 MG Oral Tablet Atorvastatin Calcium 40 MG Atorvastatin Calcium 40 MG 03/26/2019 12:00:00 AM EST 1.0 {tablet} activ e Atorvastatin Calcium 40 MG eCW1 ([facility]) atorvastatin 40 MG Oral Tablet Atorvastatin Calcium 40 MG Atorvastatin Calcium 40 MG 03/26/2019 12:00:00 AM EST 1.0 {tablet} activ e Atorvastatin Calcium 40 MG eCW1 ([facility]) atorvastatin 40 MG Oral Tablet Atorvastatin Calcium 40 MG Atorvastatin Calcium 40 MG 03/26/2019 12:00:00 AM EST 1.0 {tablet} activ e Atorvastatin Calcium 40 MG eCW1 ([facility]) atorvastatin 40 MG Oral Tablet Atorvastatin Calcium 40 MG Atorvastatin Calcium 40 MG 03/26/2019 12:00:00 AM EST active 1 tablet eCW1 ([facility]) atorvastatin 40 MG Oral Tablet Atorvastatin Calcium 40 MG Atorvastatin Calcium 40 MG 03/26/2019 12:00:00 AM EST 1.0 {tablet} activ e Atorvastatin Calcium 40 MG eCW1 ([facility]) atorvastatin 40 MG Oral Tablet Atorvastatin Calcium 40 MG Atorvastatin Calcium 40 MG 03/26/2019 12:00:00 AM EST 1.0 {tablet} activ e Atorvastatin Calcium 40 MG eCW1 ([facility]) atorvastatin 40 MG Oral Tablet Atorvastatin Calcium 40 MG Atorvastatin Calcium 40 MG 03/26/2019 12:00:00 AM EST 1.0 {tablet} activ e Atorvastatin Calcium 40 MG eCW1 ([facility]) atorvastatin 40 MG Oral Tablet Atorvastatin Calcium 40 MG Atorvastatin Calcium 40 MG 03/26/2019 12:00:00 AM EST 1.0 {tablet} activ e Atorvastatin Calcium 40 MG eCW1 ([facility]) atorvastatin 40 MG Oral Tablet Atorvastatin Calcium 40 MG Atorvastatin Calcium 40 MG 03/26/2019 12:00:00 AM EST 1.0 {tablet} activ e Atorvastatin Calcium 40 MG eCW1 ([facility]) Nystatin 009711 UNT/ML Topical Cream Nystatin 784719 U NIT/GM Nystatin 956602 UNIT/GM 03/26/2019 12:00:00 AM EST active 1 application 2g eCW1 ([facility]) atorvastatin 40 MG Oral Tablet Atorvastatin Calcium 40 MG Atorvastatin Calcium 40 MG 03/26/2019 12:00:00 AM EST 1.0 {tablet} activ e Atorvastatin Calcium 40 MG eCW1 ([facility]) atorvastatin 40 MG Oral Tablet Atorvastatin Calcium 40 MG Atorvastatin Calcium 40 MG 03/26/2019 12:00:00 AM EST 1.0 {tablet} activ e Atorvastatin Calcium 40 MG eCW1 ([facility]) atorvastatin 40 MG Oral Tablet Atorvastatin Calcium 40 MG Atorvastatin Calcium 40 MG 03/26/2019 12:00:00 AM EST 1.0 {tablet} activ e Atorvastatin Calcium 40 MG eCW1 ([facility]) atorvastatin 40 MG Oral Tablet Atorvastatin Calcium 40 MG Atorvastatin Calcium 40 MG 03/26/2019 12:00:00 AM EST 1.0 {tablet} activ e Atorvastatin Calcium 40 MG eCW1 ([facility]) atorvastatin 40 MG Oral Tablet Atorvastatin Calcium 40 MG Atorvastatin Calcium 40 MG 03/26/2019 12:00:00 AM EST 1.0 {tablet} activ e Atorvastatin Calcium 40 MG eCW1 ([facility]) atorvastatin 40 MG Oral Tablet Atorvastatin Calcium 40 MG Atorvastatin Calcium 40 MG 03/26/2019 12:00:00 AM EST 1.0 {tablet} activ e Atorvastatin Calcium 40 MG eCW1 ([facility]) atorvastatin 40 MG Oral Tablet Atorvastatin Calcium 40 MG Atorvastatin Calcium 40 MG 03/26/2019 12:00:00 AM EST 1.0 {tablet} activ e Atorvastatin Calcium 40 MG eCW1 ([facility]) atorvastatin 40 MG Oral Tablet Atorvastatin Calcium 40 MG Atorvastatin Calcium 40 MG 03/26/2019 12:00:00 AM EST 1.0 {tablet} activ e Atorvastatin Calcium 40 MG eCW1 ([facility]) atorvastatin 40 MG Oral Tablet Atorvastatin Calcium 40 MG Atorvastatin Calcium 40 MG 03/26/2019 12:00:00 AM EST 1.0 {tablet} activ e Atorvastatin Calcium 40 MG eCW1 ([facility]) atorvastatin 40 MG Oral Tablet Atorvastatin Calcium 40 MG Atorvastatin Calcium 40 MG 03/26/2019 12:00:00 AM EST 1.0 {tablet} activ e Atorvastatin Calcium 40 MG eCW1 ([facility]) atorvastatin 40 MG Oral Tablet Atorvastatin Calcium 40 MG Atorvastatin Calcium 40 MG 03/26/2019 12:00:00 AM EST 1.0 {tablet} activ e Atorvastatin Calcium 40 MG eCW1 ([facility]) atorvastatin 40 MG Oral Tablet Atorvastatin Calcium 40 MG Atorvastatin Calcium 40 MG 03/26/2019 12:00:00 AM EST active 1 tablet eCW1 ([facility]) atorvastatin 40 MG Oral Tablet Atorvastatin Calcium 40 MG Atorvastatin Calcium 40 MG 03/26/2019 12:00:00 AM EST 1.0 {tablet} activ e Atorvastatin Calcium 40 MG eCW1 ([facility]) atorvastatin 40 MG Oral Tablet Atorvastatin Calcium 40 MG Atorvastatin Calcium 40 MG 03/26/2019 12:00:00 AM EST 1.0 {tablet} activ e Atorvastatin Calcium 40 MG eCW1 ([facility]) atorvastatin 40 MG Oral Tablet Atorvastatin Calcium 40 MG Atorvastatin Calcium 40 MG 03/26/2019 12:00:00 AM EST 1.0 {tablet} activ e Atorvastatin Calcium 40 MG eCW1 ([facility]) atorvastatin 40 MG Oral Tablet Atorvastatin Calcium 40 MG Atorvastatin Calcium 40 MG 03/26/2019 12:00:00 AM EST 1.0 {tablet} activ e Atorvastatin Calcium 40 MG eCW1 ([facility]) atorvastatin 40 MG Oral Tablet Atorvastatin Calcium 40 MG Atorvastatin Calcium 40 MG 03/26/2019 12:00:00 AM EST 1.0 {tablet} activ e Atorvastatin Calcium 40 MG eCW1 ([facility]) atorvastatin 40 MG Oral Tablet Atorvastatin Calcium 40 MG Atorvastatin Calcium 40 MG 03/26/2019 12:00:00 AM EST 1.0 {tablet} activ e Atorvastatin Calcium 40 MG eCW1 ([facility]) atorvastatin 40 MG Oral Tablet Atorvastatin Calcium 40 MG Atorvastatin Calcium 40 MG 03/26/2019 12:00:00 AM EST 1.0 {tablet} activ e Atorvastatin Calcium 40 MG eCW1 ([facility]) atorvastatin 40 MG Oral Tablet Atorvastatin Calcium 40 MG Atorvastatin Calcium 40 MG 03/26/2019 12:00:00 AM EST 1.0 {tablet} activ e Atorvastatin Calcium 40 MG eCW1 ([facility]) atorvastatin 40 MG Oral Tablet Atorvastatin Calcium 40 MG Atorvastatin Calcium 40 MG 03/26/2019 12:00:00 AM EST 1.0 {tablet} activ e Atorvastatin Calcium 40 MG eCW1 ([facility]) atorvastatin 40 MG Oral Tablet Atorvastatin Calcium 40 MG Atorvastatin Calcium 40 MG 03/26/2019 12:00:00 AM EST 1.0 {tablet} activ e Atorvastatin Calcium 40 MG eCW1 ([facility]) atorvastatin 40 MG Oral Tablet Atorvastatin Calcium 40 MG Atorvastatin Calcium 40 MG 03/26/2019 12:00:00 AM EST 1.0 {tablet} activ e Atorvastatin Calcium 40 MG eCW1 ([facility]) atorvastatin 40 MG Oral Tablet Atorvastatin Calcium 40 MG Atorvastatin Calcium 40 MG 03/26/2019 12:00:00 AM EST 1.0 {tablet} activ e Atorvastatin Calcium 40 MG eCW1 ([facility]) atorvastatin 40 MG Oral Tablet Atorvastatin Calcium 40 MG Atorvastatin Calcium 40 MG 03/26/2019 12:00:00 AM EST 1.0 {tablet} activ e Atorvastatin Calcium 40 MG eCW1 ([facility]) Nystatin 964019 UNT/ML Topical Cream Nystatin 375044 U NIT/GM Nystatin 405882 UNIT/GM 03/26/2019 12:00:00 AM EST active 1 application eCW1 ([facility]) atorvastatin 40 MG Oral Tablet Atorvastatin Calcium 40 MG Atorvastatin Calcium 40 MG 03/26/2019 12:00:00 AM EST 1.0 {tablet} activ e Atorvastatin Calcium 40 MG eCW1 ([facility]) atorvastatin 40 MG Oral Tablet Atorvastatin Calcium 40 MG Atorvastatin Calcium 40 MG 03/26/2019 12:00:00 AM EST 1.0 {tablet} activ e Atorvastatin Calcium 40 MG eCW1 ([facility]) atorvastatin 40 MG Oral Tablet Atorvastatin Calcium 40 MG Atorvastatin Calcium 40 MG 03/26/2019 12:00:00 AM EST active 1 tablet eCW1 ([facility]) atorvastatin 40 MG Oral Tablet Atorvastatin Calcium 40 MG Atorvastatin Calcium 40 MG 03/26/2019 12:00:00 AM EST 1.0 {tablet} activ e Atorvastatin Calcium 40 MG eCW1 ([facility]) Acetaminophen 325 MG / Oxycodone Hydroch loride 10 MG Oral Tablet [Percocet] Percocet 10-325 MG Percocet 10-325 MG 03/25/2019 12:00:00 AM EST active 1 tablet as needed eCW1 ([facility]) Morphine Sulfate 15 MG Extended Release Oral Tablet Mo rphine Sulfate ER 15 MG Morphine Sulfate ER 15 MG 03/10/2019 12:00:00 AM EST active 1 to 2 as directed eCW1 ([facility]) Morphine Sulfate 15 MG Extended Release Oral Tablet Mo rphine Sulfate ER 15 MG Morphine Sulfate ER 15 MG 03/10/2019 12:00:00 AM EST active 1 to 2 as directed eCW1 ([facility]) Morphine Sulfate 15 MG Extended Release Oral Tablet Mo rphine Sulfate ER 15 MG Morphine Sulfate ER 15 MG 03/10/2019 12:00:00 AM EST active 1 to 2 as directed eCW1 ([facility]) 15 mg 03/10/2019 12:00:00 AM EST tablet extended release 90 TAKE 1 TABLET BY MOUTH IN THE MORNING AND 2 AT BEDTIME MAXIMUM DAILY DOSE = 3 TAKE 1 TABLET BY MOUTH IN THE MORNING AND 2 AT BEDTIME MAXIMUM DAILY DOSE = 3 SOLD: 03/13/2019 [facility] Morphine Sulfate 15 MG Extended Release Oral Tablet Mo rphine Sulfate ER 15 MG Morphine Sulfate ER 15 MG 03/10/2019 12:00:00 AM EST active 1 to 2 as directed eCW1 ([facility]) Morphine Sulfate 15 MG Extended Release Oral Tablet Mo rphine Sulfate ER 15 MG Morphine Sulfate ER 15 MG 03/10/2019 12:00:00 AM EST active 1 to 2 as directed eCW1 ([facility]) 5 mg 03/05/2019 12:00:00 AM EST tablet 60 TAKE ONE TABLET BY MOUTH EVERY 12 HOURS NEEDED FOR ANXIETY MAXIMUM DAILY DOSE = 2 TABLETS TAKE ONE TABLET BY MOUTH EVERY 12 HOURS NEEDED FOR ANXIETY MAXIMUM DAILY DOSE = 2 TABLETS SOLD: 03/05/2019 [facility] Diazepam 5 MG Oral Tablet diazePAM 5 MG Oral Tablet (V ALIUM) diazePAM 5 MG Oral Tablet (VALIUM) 03/05/2019 12:00:00 AM EST 5 mg Oral ac tive Take 1 tablet by mouth every 12 (twelve) hours as needed for Anxiety, Max Daily Dose: 10 mg [facility] 300 mg 02/24/2019 12:00:00 AM EST capsule 60 TAKE ONE CAPSULE BY MOUTH TWICE A DAY MAXIMUM DAILY DOSE = 2 CAPSULES TAKE ONE CAPSULE BY MOUTH TWICE A DAY MAXIMUM DAILY DOSE = 2 CAPSULES SOLD: 02/25/2019 [facility] 300 mg 02/24/2019 12:00:00 AM EST [...] DAILY DOSE = 2 CAPSULES SOLD: 06/26/2019 [facility] 300 mg 02/24/2019 12:00:00 AM EST [...] EST active 1 tablet as needed eCW1 ([facility]) Acetaminophen 325 MG / Oxycodone Hydroch loride 10 MG Oral Tablet [Percocet] Percocet 10-325 MG Percocet 10-325 MG 02/17/2019 12:00:00 AM EST active 1 tablet as needed eCW1 ([facility]) Acetaminophen 325 MG / Oxycodone Hydroch loride 10 MG Oral Tablet [Percocet] Percocet 10-325 MG Percocet 10-325 MG 02/17/2019 12:00:00 AM EST active 1 tablet as needed eCW1 ([facility]) Acetaminophen 325 MG / Oxycodone Hydroch loride 10 MG Oral Tablet [Percocet] Percocet 10-325 MG Percocet 10-325 MG 02/17/2019 12:00:00 AM EST active 1 tablet as needed eCW1 ([facility]) Acetaminophen 325 MG / Oxycodone Hydroch loride 10 MG Oral Tablet [Percocet] Percocet 10-325 MG Percocet 10-325 MG 02/17/2019 12:00:00 AM EST active 1 tablet as needed eCW1 ([facility]) Acetaminophen 325 MG / Oxycodone Hydroch loride 10 MG Oral Tablet [Percocet] Percocet 10-325 MG Percocet 10-325 MG 02/17/2019 12:00:00 AM EST active 1 tablet as needed eCW1 ([facility]) Acetaminophen 325 MG / Oxycodone Hydroch loride 10 MG Oral Tablet [Percocet] Percocet 10-325 MG Percocet 10-325 MG 02/17/2019 12:00:00 AM EST active 1 tablet as needed eCW1 ([facility]) Percocet 10-325 MG UNK 02/17/2019 12:00:00 AM EST active 1 tablet as needed eCW1 ([facility]) Amitriptyline Hydrochloride 25 MG Oral [...] active 1 to 2 as directed eCW1 ([facility]) Morphine Sulfate 15 MG Extended Release Oral Tablet Mo rphine Sulfate ER 15 MG Morphine Sulfate ER 15 MG 02/12/2019 12:00:00 AM EST active 1 to 2 as directed eCW1 ([facility]) Morphine Sulfate ER 15 MG UNK 02/12/2019 12:00:00 AM EST active 1 to 2 as directed eCW1 ([facility]) 5 mg 02/03/2019 12:00:00 AM EST tablet 60 TAKE ONE TABLET BY MOUTH EVERY 12 HOURS NEEDED FOR ANXIETY MAXIMUM DAILY DOSE = 2 TAKE ONE TABLET BY MOUTH EVERY 12 HOURS NEEDED FOR ANXIETY MAXIMUM DAILY DOSE = 2 SOLD: 02/03/2019 [facility] 10-325 mg 01/24/2019 12:00:00 AM EST [...] Particles (CYMBALTA) 12/30/2018 12:00:[address] [facility] Carisoprodol 350 MG Oral Tablet CARISOPRODOL 12/05/2018 [...] aborted Take 25 mg by mouth daily [facility] Propranolol Hydrochloride 20 MG Oral Tablet propranolo l (INDERAL) 20 MG tablet propranolol (INDERAL) 20 MG tablet 01/13/2018 12:00:00 AM EST aborted TAKE ONE TABLET BY MOUTH EVERY DAY ON EM PTY STOMACH [facility] Oxycodone Hydrochloride 5 MG Oral Tablet oxyCODONE (ROXICODONE) 5 MG immediate release tablet oxyCODONE (ROXICODONE) 5 MG immediate release tablet 0 06/25/2017 12:00:00 AM EDT aborted Take 1 PO q4h prn pain, MDD = 6 [facility] Insurance Providers Payer name Policy type / Coverage type Policy ID Covered democrat ID Covered democrat's relationship to daly Policy Daly Plan Information MEDICARE [id number] SP [id number] [employer] [place]-BS PPO 306 [id number] SP [id number] [employer] [place]-BS PPO 306 [id number] SP [id number] MEDICARE [id number] SP [id number] X28 MEDICARE C [id number] S [id number] X28 [place]/307 [id number] SP [id number] [place]/307 [id number] SP [id number] [employer] [place]-BS PPO 306 [id number] SP [id number] EXCE[employer] BCBS B [id number] S [id number] TRAVELERS W [id number] Empl [id number] BCBS [facility] 220/720 [id number] SP [id number] BCBS [employer] PRO[employer] [id number] SP [id number] [place]/307 [id number] SP [id number] [place]/307 [id number] SP [id number] EXCELLUS H [id number] Self [id number] 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 [id number] SP [id number] TRAVELERS- WCB# [id number] SP WCB # [id number] [place]/307 [id number] SP [id number] 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 [id number] SP [id number] EXCELLUS BCBS B [id number] S [id number] 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 WCB# [id number] WCB# [id number] 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 [id number] SP [id number] TRAVELERS-WC WCB# [id number] SP WCB # [id number] 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 [id number] SP [id number] 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 [id number] SP [id number] OTHER WORKERS COMPENSATI O [id number] S [id number] TRAVELERS WC W [id number] Empl [id number] ANSI-Commercial kphoy882-x475-65t4-w1l8-[id number] evljs066-z644-23t2-e5a6-j2127v14t047 ANSI-Not a Secondary Insurance [id number]-gev8-wscx1 [id number] blfz7770-1x89-7fp1-rru2-fktu5nb88i91 ANSI-Not a Secondary Insurance 18859c60-wr53-7277-oc1w-q675b d40oxy0 59793z53-gs40-6887-cv7y-c154vs09kcc0 ANSI-Commercial 3752xzl4-n11f-3291-p6o5-4147b2mm1123 3799hmi1-g60p-6959-z0k2-4294k8mq8907 ANSI-Not a Secondary Insurance 21w3p51w-0r3w-90b3-p0lg-p976h x0d2e2p 62y0g73w-4h3s-31n5-q1hk-s740rx4v8n9r ANSI-Commercial y0admh58-5995-02z9-k323-82590589kscl o8bzip25-1375-43z7-l715-48215079dvft ANSI-Commercial 7g68q38g-6k0h-2b5n-0y50-1c81688p0y55 5p73n74f-7t3z-7w8i-3j15-3t97335r5r06 ANSI-Not a Secondary Insurance q8r45g50-7un2-8a10-2473-g7057 s2z9xj5 n9t31h89-2qf9-9f68-7068-b3929k3b1ga5 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# [id number] SP B# [id number] ANSI-Commercial 5460q2h1-3i46-8135-oxww-a60wl5g4031j 7189d8e2-5f48-3840-mxei-x16wj2v3216e ANSI-Not a Secondary Insurance 7qx67qo4-09q3-731n-f5m6-f69xb 9t02lgt 6tb13qb5-42s7-807x-d7t4-n52ex1d96tde ANSI-Commercial w435pc34-6vp6-240c-kz87-390d60o08pfm d566oj16-5qn6-518z-nv16-577s46s41myc ANSI-Not a Secondary Insurance r329k622-376n-486a-9025-74h29 6dj7jw7 r947h275-579i-983z-3548-05y846in2rg2 ANSI-Not a Secondary Insurance 82l64e2b-q962-26h9-x175-17678 7uru5y2 68i54p4k-g922-01g4-i903-386287erh0o6 ANSI-Commercial 26776475-23l7-54w1-f708-3e975f92446k 56154506-49z3-06e0-y789-1d542t35178z ANSI-Commercial v72vyhr1-6l2h-4aw3-c163-659sres1k86c c29wcka2-2y1i-7cf9-t314-322zmal1u79a ANSI-Not a Secondary Insurance eb63p0p5-9k46-1531-0438-q532c 47c1ys4 eb79n9u7-4z22-9016-9200-k895g77y9ia5 ANSI-Commercial 74t57vy6-5g18-4pul-6735-r9umaf86xa12 75t65ie3-9q88-2mta-9177-x0khqf26fw65 ANSI-Not a Secondary Insurance 2s08h445-23h5-72dy-at08-uw0q1 6032k1h 2w60c437-70c4-79ug-eb93-al3d43077f3t ANSI-Commercial 6s965b11-u11z-94p6-4pm0-55wz7d25152f 9n920k43-t44w-61u0-4lm8-48yr8r50780b ANSI-Not a Secondary Insurance 59x8toz5-22f3-503l-n625-7p2n1 zmc0u5p 66v8qic9-35v3-186y-n032-9e6f3jqe7b9d ANSI-Not a Secondary Insurance 986tp919-n202-511m-o25h-3a58h cpau7f7 237nf965-c880-339w-t28s-9q89gwtat9q0 ANSI-Commercial 2u1879rs-xqk4-4753-ed64-e2v9h7sr6866 9j5454fv-eay8-3003-lq78-o4g8x6qa9391 [facility] [id number] SP [id number] ANSI-Not a Secondary Insurance 142031mv-bdy9-100h-pk81-enh29 72g883d 788846bx-qcs0-723k-ph27-egx3635a823k ANSI-Commercial 967rpa46-yqe4-5rq8-1ckx-67v7h7728sdg 254rsk54-lnk0-9yk0-0uym-34b6q8457tvn ANSI-Not a Secondary Insurance e31s31n1-9u34-67y3-6fl6-z74f1 i8mb5q7 h39r50y2-1f13-28q2-8bd3-y22x5l3rs0h2 ANSI-Commercial 62649qvb-8348-5kj3-7iv3-8oe5w6078d97 27734awo-9654-6ad8-0vn4-8vg4n4141r96 ANSI-Commercial 2h59e0k8-808w-7072-u3i6-z09t43e80e1n 0b11g3e9-033n-3934-t7l8-m41a66p72b0z ANSI-Not a Secondary Insurance pu0h3s7x-7741-3s5g-05q9-9sijz 38g9108 jc4a4f0b-9957-4j3q-52f1-5dmsq75s9274 ANSI-Commercial s0x85l51-a9k5-655b-lq4o-22db962596q4 o6v63b77-d1m9-518k-yj3k-78rr820032z4 ANSI-Not a Secondary Insurance 47i7aiy0-xa32-8131-x899-43k8h 8sr27w5 93w0pcq6-qa54-6958-f740-00d2d0or19s3 ANSI-Not a Secondary Insurance r4592332-w254-92s3-0fx4-wj2o5 n87i698 j8525971-k550-09k7-3sb1-gb1o0e54y966 ANSI-Commercial 1se4e8n8-601x-8r91-r1op-01o0t9395f71 6nd4i8f7-114s-1c68-c9oq-98s1j4396h10 ANSI-Not a Secondary Insurance 8xqas50m-s4z2-059v-k6e8-bsn3n 464m2is 0aksu41m-h5k9-752g-b5d8-unr4s336m8xi ANSI-Commercial 65vj0kzu-53q7-5947-5611-c64yvj6br720 26lk5bpx-63f9-0750-6273-d56mjp0er677 ANSI-Not a Secondary Insurance h46x21zc-d34s-2fcr-1x15-y5010 x0m7vm3 g22u63wz-d81a-8srv-6u76-n8814o5m3zx2 ANSI-Commercial 0g25u2jh-7v19-2206-o067-2r6786r9vs81 6g46g3rh-1j44-4882-d898-0n7240o1vo98 ANSI-Commercial e34id366-1m8n-299a-k6p5-6f621z027m29 r37vp000-1k6c-526p-m7h4-8d512h605c64 ANSI-Not a Secondary Insurance 5cysap8j-c207-657c-j2x9-pq79j 1b3s9l2 6uuhqk8r-s475-187n-n8r4-wq37r8p5w7o9 ANSI-Not a Secondary Insurance lt5cs971-p8r3-7475-y8x7-81271 ex6j02b ho9gq510-r4q1-7965-z6w5-31820ez2u64q ANSI-Commercial 1393o6k3-60fv-4640-1p6d-59qx850er3x4 7427w6o4-58tf-7883-3r1m-93js022af5x7 ANSI-Commercial 783u4z43-sa65-64v9-bc5p-4bp6dkme8rn2 449s9p60-gs19-15n4-iz5r-8zg3lyhl0ym7 ANSI-Not a Secondary Insurance 430222r3-y3u4-9qvw-k76j-np0u5 6669x9s 256887n4-h5f1-1nnm-b17e-yq3p11918c3w ANSI-Commercial 3d4c4eo0-805u-3f54-5409-867y030p94a4 4i5h2qj9-962p-3h98-2067-186s347y10m7 ANSI-Not a Secondary Insurance f664148s-8a36-1r39-56f2-0bfz0 7l58713 r884862z-7v97-1u07-94w0-1qom38v21019 ANSI-Not a Secondary Insurance xp6m5lfe-0m3h-45cs-b4r3-m57f0 zu465d0 gv9g0xnc-1b6d-94in-k7d0-r61e6fq300r0 ANSI-Commercial lywcl020-h2y0-19m4-0bzk-o64g007i59i4 chiyl987-t8c8-46n8-4hpo-o71r418h69k4 ANSI-Commercial 169126i4-22c3-4ig1-0842-249w12wk0z0c 440089x0-24q2-4pr7-7851-032c94nn0w6x ANSI-Not a Secondary Insurance 250n4p5z-2s44-2442-168m-q063b mp7xmc0 209p4f2j-8n88-6990-120u-e335rhd8kdc8 ANSI-Not a Secondary Insurance 086y723u-66qj-4dqe-9i6q-3g378 x6n35a9 397r564n-10pt-2bfy-7o9u-9a669p8b87s0 ANSI-Commercial b3vy4002-08s5-00b1-54f1-3d04044pee47 z6tt9377-19z9-38p1-15c5-1w71107hqy02 ANSI-Commercial l205139p-59hr-2227-2u48-63ki7g9w70nv v464933b-05ey-4055-4o19-32qn2s4y54bn ANSI-Not a Secondary Insurance 8n7r4607-f2c0-5hb8-h29a-9og51 3an5o17 1w0w3831-f9p8-9xi3-r01k-6gq041qc2r44 ANSI-Commercial 047y39t6-2vcv-08h0-q36d-4ena9052z342 034i04o8-3dnx-09f2-w68s-7siy0247z369 ANSI-Not a Secondary Insurance j3c4001e-2by0-210g-2nk7-79wtl 1t38gie x2z6830q-6vn5-551y-0yi2-79axe1p81ncq ANSI-Commercial 3tha974l-a845-78o4-e354-73g858221110 4pxh603n-n836-65y2-n844-21a053500786 ANSI-Not a Secondary Insurance 4v70ji37-l257-0269-1445-142u7 454w4a0 5i32ug66-d589-7340-2318-864x9128w7o8 ANSI-Commercial 50sa6kg5-3c36-7wy8-1017-1mek6f3903no 87fs4yr7-7a82-5tm2-6300-8gnh5t9525fx ANSI-Not a Secondary Insurance 55mo6718-71q8-55hc-k439-p616l s0122d8 81bi5713-82v4-26ho-r904-b718ua6870h1 ANSI-Commercial e7r62241-7mt7-8689-2i67-1xz84201y47x c7n75328-4ve3-0589-1l09-9vx32883j58g ANSI-Not a Secondary Insurance s551m360-ks41-7wyw-423j-2u488 cvj8h3j u323s867-tw98-7jmj-843r-4e718tfj7n4r ANSI-Commercial 5dd7rr66-a0k2-55nx-b04n-92l6901ge3uw 3zi0vt69-i5y4-86tu-j01a-31g2610jz7qu ANSI-Not a Secondary Insurance 4c96k8bh-1t84-0d23-65c2-e89t0 6gifh15 3m05l5rt-0e74-2t46-33f9-d27r16xqnv28 ANSI-Not a Secondary Insurance 3wsms0j3-9j85-4qi6-as4c-714j1 398a1x9 0gwmq0a0-2a33-0wj9-yh7r-406l2485h8x5 ANSI-Commercial b049n8kb-07r9-123a-3677-t3wp1u8ca8p2 i855f2rt-43q7-292e-4186-z6st8l8ng9v3 ANSI-Commercial a7r7g302-2938-90i4-25xw-4v50v4gj228e d3r5d585-9825-19r3-30lu-3l04m4fd927a ANSI-Not a Secondary Insurance 3770l592-7168-9w33-8qqb-u0y44 r0162px 5041l304-0001-2z80-6fjz-g4i16r3793jp ANSI-Commercial 16597241-v649-5341-zd56-shv9h1018281 39312690-i141-2738-qo43-xqq7q5576549 ANSI-Not a Secondary Insurance 13s741wq-q035-37vt-e8vy-3hg92 1feaaac 06s924jf-n943-09jj-t6qw-4qh925smnjix ANSI-Not a Secondary Insurance 15o38r45-p4ry-5709-2fe0-3509p 70889w8 53w31w93-c3mz-9031-7bk6-6792c86453k0 ANSI-Commercial 66n4h2r1-244x-2a63-02tm-795fxy1ce823 16e9o3k7-485y-2l35-18sy-689bca7gi422 ANSI-Not a Secondary Insurance 07ci3prc-gu20-5182-ys5u-7s2p5 3x6e22c 17de0lbi-ts15-5307-bw6p-5g7n70t2m73k ANSI-Commercial 7m9y2yz2-22j6-06zr-kb66-194627ml6i1v 0t6g3os7-86m1-95tc-eb99-483395nf3x1a ANSI-Commercial hhy46552-hw78-8i70-8393-3v08skxtsf48 ngs24914-fr58-9u58-2321-3x72awizuk67 ANSI-Not a Secondary Insurance r11g7gh0-5c1x-39s0-e7js-qrm50 243810w s93l3hn3-7h5y-60o4-o5ih-vrj13820504z ANSI-Not a Secondary Insurance ny3652cc-16y8-4a54-8cxx-36979 8157803 lp1735hp-15y1-8f29-6edp-532670523097 ANSI-Commercial v2j9g096-8k47-7557-u231-0o87a2z635au w6h6i948-2z41-9734-x855-2g81g6z149cw ANSI-Not a Secondary Insurance 8q0jp7r1-0526-2301-367j-012qq n59161k 1e7fu9l9-0632-1835-300t-041qcw20424u ANSI-Commercial 405i343p-2134-8150-084a-17t595jvd0g6 382p318t-4396-7398-618r-82v014xfk6e5 ANSI-Not a Secondary Insurance 18020709-g63x-7yu0-js5a-0m92y 3i91bx1 29726217-q58p-2fa2-qb2n-1d76b3x58zo2 ANSI-Commercial h428f948-w3e9-9hg8-20h6-8dh35f382cg3 y346l401-o3m5-1nf3-04j1-0bl05o080in6 ANSI-Not a Secondary Insurance y14e9d7o-87f9-130x-v1g1-57790 z05gm7x f89n5l9q-17l6-102d-r3r1-25824f05to9m ANSI-Commercial 7j7kf4p8-p1o8-3064-nz73-ov798793y6jh 7n6yh2x9-a6r8-3352-jb53-qb638263u1ye ANSI-Commercial 5tta745z-t1j2-83zd-oe82-n6jvlrur1573 8csn691a-u6p9-42jn-uk98-s4yvytyu0573 ANSI-Not a Secondary Insurance 11426208-y353-4319-svh0-8w87j lp686g7 78003952-s045-9238-pwb2-2b85qlb351r2 ANSI-Not a Secondary Insurance 0644sla5-naue-92w6-7818-i0go4 2z529f4 7441qie4-lomp-38s6-3870-z3lv80m019h8 ANSI-Commercial k6me26s2-232i-87a1-k8d7-113447594208 h1az01k2-707u-46g5-x0q3-943536235339 ANSI-Not a Secondary Insurance 0278jbn8-3ovr-57n7-8l7u-6f9o9 15y9374 4682vqy4-8jnk-16c2-1z4h-9p6m035x5252 ANSI-Commercial gj1xsvb9-0tlj-28ix-dfqr-761h9qo7jm32 rj4bogw6-7rxe-70hx-fqsc-311t2pk9hj89 ANSI-Commercial v21w9427-57e3-053x-59xw-05g5yr1w5149 y05q5166-61g0-576m-21av-62c0be4v9491 ANSI-Not a Secondary Insurance r12g9p2u-dwgs-87rz-5l3q-l6su7 9h3d291 s89k8y9h-pero-83po-2y3u-o4fi60p3d147 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 O [id number] O [id number] ANSI-Not a Secondary Insurance 84hz8064-98q7-8y1b-a4f4-4mxd4 n719732 70mm6673-68e0-1j3m-d2t1-7ava7r585911 ANSI-Commercial gxg8v451-zsiy-8e89-897v-526738251ru4 wmr9d825-iznn-7s71-911a-137655214ad6 ANSI-Not a Secondary Insurance 98x0cn4j-3n82-145s-1xw1-5nf9u 2jav604 92m9ql0y-8a78-512r-5ui0-3zc8r1agu891 ANSI-Commercial 600kz4l6-d345-2252-793f-49463f7fhn99 093xa8s1-c250-3285-661o-31512j9sqs31 ANSI-Commercial p363v589-v2ia-00g4-j80l-n6m94656rhw2 e191e478-m7ib-26w8-g23j-r8g76924dvx7 ANSI-Not a Secondary Insurance tm4h9hz5-y611-8093-2vm3-26b05 60h6eel qg5w9hz7-m022-5682-3gs7-09g4469a2tut ANSI-Commercial k703q22v-9788-4i34-i0h2-6cq1dj5848e9 c874p45c-7850-6z78-p8u3-3vs1kp3239y2 ANSI-Not a Secondary Insurance 03t3ty9s-i8a5-089s-3a3w-83ro4 8856774 68e2yh8g-b8f4-074z-5n7k-67dp08620012 ANSI-Commercial 695zj108-6524-2148-tu9j-t71143v9iv75 150ml762-7026-8662-cu2v-t35981x4bv53 ANSI-Not a Secondary Insurance 21354tys-6qqq-558y-87e6-8u71x nef1fm5 15712fwu-5wgj-143m-06d6-5c07azqc2sh6 ANSI-Commercial 3t87o31f-p09e-3ra5-667a-5r522u9a1518 9n37w44l-g19k-4au3-301i-8c691m9c8556 ANSI-Not a Secondary Insurance 307o9039-6e06-23vk-z6dg-87q79 489ebec 099e8576-8u38-92bc-h5mx-80t18629fztn ANSI-Not a Secondary Insurance 40583529-f5n6-2db1-et2e-2m607 n4z647x 66303792-u2f9-4re7-ai8c-2o624v6h296x ANSI-Commercial 1yji38ek-4sd9-374d-mz14-859023c6r9ej 3mii63do-6hs2-448w-ya89-880955s6s6qq ANSI-Not a Secondary Insurance 8p82z437-sf98-594m-9n39-62ira 6y80k1e 9t31c387-ad44-747s-2k40-87uif6s53w7g ANSI-Commercial ece5296e-o520-97lr-0yy0-w73awuzh3q4o vfv9585e-c497-93qd-1xz9-d77ofvus2w5a ANSI-Commercial 87zs2165-6n5x-9suc-ea7y-m2a0i3s1p2nv 21jm4451-8e7a-1qcv-ix7k-k8g6u4e8a1cl ANSI-Not a Secondary Insurance 6y3cu230-0y0h-202s-0m45-0i0b3 0z03050 0m8dc929-5e6b-396p-8z88-0e6q24r92935 ANSI-Commercial 67ug9x01-1015-9mo3-4l0x-9127v21yi767 87zt9d81-1644-8hq4-9l5w-0700m23ew667 ANSI-Not a Secondary Insurance f2fb80m2-baj2-8z1g-m009-el7dl 8nft6es p7hu94b7-zri7-4x0m-g522-wu1rs5fot8nt ANSI-Commercial 4a4l55tq-7hhi-536j-aq7a-68j4015i7a3q 8j8f67le-7frr-403m-rv6o-78d3248m5d8e ANSI-Not a Secondary Insurance 1495635p-242y-0899-3v99-rh3f0 963dt31 8748364v-015z-3209-5j07-vc7y4773eh10 ANSI-Commercial wlv58n73-4l9x-65h5-h722-hokeeyi80k26 vwd75b77-1d2j-67e2-h541-gwbnrpj20b14 ANSI-Not a Secondary Insurance 5k153urj-1r98-1nti-s688-0v657 629m132 2i011mzm-9z40-6uwv-i826-6p595300j572 ANSI-Not a Secondary Insurance 5a1bxvmt-0jnz-5r0q-q9x4-j67si 5792351 7y1mupph-8pnk-9l1w-v7e1-o31of7399826 ANSI-Commercial 043m2f9o-527b-9a66-w91s-8007980a86j1 313h4p2q-755u-8j12-l48v-9286770n08z1 ANSI-Not a Secondary Insurance 9v8n9d0z-d440-11qg-86k5-0466o 61ybu11 4r4k8g4q-p903-52wz-49b3-9017l12aig19 ANSI-Commercial 2181884e-o21y-7602-0ckc-0364d0ld9g5e 7468836z-b94z-1298-4bhg-7149p6kt5p9j ANSI-Commercial fr3x214y-1dk0-8yj1-6x15-q6x28ur892p9 ph8o685w-4ee6-7zs7-6w18-n7j18ov461h0 ANSI-Not a Secondary Insurance 42i12nb1-7q3p-8ht6-5l89-r1e2v adbq625 44d60bk9-7l8k-9tb5-8l23-y9l7rprbx569 ANSI-Not a Secondary Insurance 6307yd15-94i3-227q-1348-7b29h m49729j 2153ze37-97m5-203m-8584-8c43if73124j ANSI-Commercial 97p1p1i4-4066-8b91-up75-ba85e0276472 36x8x7s5-2689-0z91-xe26-tg53s8940358 ANSI-Not a Secondary Insurance 390sv76j-54qt-7a5p-3t26-7k92t 7r3k9f4 726pw56h-39et-5v0y-7h58-0n05d3i9j1r1 ANSI-Commercial 6l12903y-9898-8801-d516-t9b6svxl4da3 9v16603c-9780-2867-z177-s6b9kwis4qn4 [id number] [id number] ANSI-Commercial 95sud48z-7084-9234-0606-4tu2wc5e2749 36shc61u-8685-8167-3846-0vx6tr7l3149 ANSI-Not a Secondary Insurance v4370hne-4m65-9538-0iv2-s622q 5hrc00l x5715nqv-4k70-6572-8py1-h956k6njo05c ANSI-Not a Secondary Insurance [id number]497 n1fdtx1 28l43112-80k9-5503-32f5-99275n1qsgy6 ANSI-Commercial kx53a2ej-962n-23l7-84a3-b38gacmfv59s no50i2ky-468t-80u3-05y1-h69bifakj38x ANSI-Not a Secondary Insurance xqm4101s-0d86-3466-l3s3-y3426 9o00snz cei8047p-2q68-7395-f6r4-a72643a16isx ANSI-Commercial 623a199c-3c0j-784v-il9n-34f71ol68ix7 020o491z-7u7q-686t-hg2q-11o66yt93ag8 ANSI-Not a Secondary Insurance v014rohj-lw1t-615n-7y31-55s3p 2mh67l7 p768sokr-kp3v-296s-0t40-20v6z2vm21u7 ANSI-Commercial w53xa5h4-pcgz-443c-urq1-c192577229z3 i16lp8x2-fwpb-468w-ekg6-e709455403y5 ANSI-Not a Secondary Insurance e555jpj9-56gy-73s8-kj9l-00883 6mnzr5h z779czj3-54jk-20j1-qo2p-857560ussn1t ANSI-Commercial pe3zk69c-4md7-1052-m757-4kgn7634483v dt9ps56y-9xc0-4132-r717-3oaw3089278a ANSI-Commercial 317363t3-3v46-26jh-0h76-hy16h068q4k3 609967x5-4r09-16ir-0x91-iz45i244n9l8 ANSI-Not a Secondary Insurance [id number]-6y33-084b-4f8p-69536 9545g9a 094m68ra-5v24-410l-5k0c-120289260m8t ANSI-Not a Secondary Insurance on571832-z084-64zd-x818-937vr 17y534j ad583043-d660-50ct-h337-159ih26a407k ANSI-Commercial trd30y32-0839-43l2-fs29-[id number] cee98h98-0317-36e1-jw82-pgp95l035134 ANSI-Not a Secondary Insurance h39f09zn-e32o-971o-591l-4p614 w7x5649 c18h54gv-a63o-978i-503e-4q986v7j7922 ANSI-Commercial gki58tb9-dw68-0575-78yw-136q86s450s4 zux23lj2-sn24-3718-97cl-414q18q215e4 ANSI-Commercial ga7c1woo-g2yw-1800-26w0-am7v8q351t4d vk3d6nil-b0pj-1447-89m7-iu4f1o187a9n ANSI-Not a Secondary Insurance 729n2639-749c-7881-q7m2-923lq 0j7h7k2 337d2746-846g-0513-q7w8-330ws8g9j0e2 [facility] [id number] SP [id number] ANSI-Not a Secondary Insurance q1a335g1-sn4h-8t57-6818-46z3c 85u415m t3x257x2-hu7e-3x21-8498-90f8r60o758q ANSI-Commercial 6309479g-141w-48gz-iko5-gvi63k1o1g04 5615212p-856m-39kz-azd1-cpl03f4o6k32 ANSI-Commercial mhr6b315-33c3-5swr-h8bu-m9s59w5169hl lvt2m473-86x4-6gxa-o0wm-j9d74j9735za ANSI-Not a Secondary Insurance n8g24950-1q93-554l-32n7-9100u w510xv2 j9s07391-3s51-477r-[id number] ANSI-Not a Secondary Insurance 22c84089-2734-556d-7904-4o20t 97g144d 05a63609-6185-584t-3447-0v78z99x133o ANSI-Commercial 5nfgx212-s079-3305-5219-1010596qg442 [id number]-[id number] OTHER WORKERS COMPENSATI O WCB#[id number] S WCB#[id number] ANSI-Not a Secondary Insurance [id number]-m9r6-0b21-hq36-26013 0756ebf t634v381-t1n7-6a13-ty63-131097528skc ANSI-Commercial [id number]-q9l6-6r63-841p-[id number] 70127e13-a7e8-7a54-402z-[id number] ANSI-Commercial 22909231-x1ub-93k4-95wz-pl9b5jww4778 12582633-v9bm-04k9-04je-ty9p3qbe9777 ANSI-Not a Secondary Insurance 79t3ln54-9x1g-4639-9780-0315v 06dn9k6 10c1ql64-5h6f-[id number] OTHER WORKERS COMPENSATI O WCB#[id number] S WCB#[id number] TRAVELERS-[place] WCB# [id number] SP WCB # [id number] 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 [id number] BS [place] Medigap Part B [id number] Self [id number] Travelers Insurance (WC) Workers Compensation [id number] Self [id number] 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 [id number] SP [id number] 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 [id number] SP [id number] [place] P[place] 302/307 [id number] SP [id number] [place] 302/307 [id number] SP [id number] [place] 302/307 [id number] SP [id number] BS Of [place] [facility] Maintenance Organization ([facility] [place]) Self [place] BCBS B [id number] S [place] [id number] BCBS [place] 304/804 [id number] SP [id number] [place] H [id number] Self [id number] BLUE CROSS BLUE SHIELD[employer]CL[employer] [id number] BCBS [place] 304/804 [id number] SP [id number] SELF PAY 5 UNAVAILABLE 1 UNAVAILA BLE BLUE CROSS BLUE SHIELD-O/P [id number] BCBS [place] 306/8 P [id number] S [id number] Problems, Conditions, and Diagnoses Code Display Name Description Problem Type Effective Dates Data Source(s) F51.01 5560313 Primary insomnia Problem 01/28/2020 12:00:00 AM EST eCW1 ([facility]) F41.0 326684464 Panic disorder Problem 12/24/2019 12:00:00 A M EST eCW1 ([facility]) F41.9 71860690 Anxiety Problem 12/23/2019 12:00:00 AM ES T eCW1 ([facility]) 74343138 Cervical radiculopathy Cervical radiculopathy Problem 08/26/2019 12:00:00 AM EDT MEDENT ([facility], ) 950672607 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 Problem 08/26/2019 12:00:00 AM EDT MEDENT ([facility], ) 56636278 Neck pain Neck pain Problem 08/26/2019 12:00:00 AM ED T MEDENT ([facility], ) 201935078 Essential tremor Essential tremor Problem 08/26/2019 12 :00:00 AM EDT MEDENT ([facility], ) R25.1 339967305 Tremor of both hands Problem 08/25/2019 12:0 0:00 AM EDT eCW1 ([facility]) F41.9 46166058 Anxiety Problem 08/04/2019 12:00:00 AM ED T eCW1 ([facility]) M46.1 [id number] Bilateral sacroiliitis Problem 05/28/2019 12:00:00 AM EDT eCW1 ([facility]) M54.5 943512223 Low back pain Problem 05/28/2019 12:00:00 AM EDT eCW1 ([facility]) M54.5 037816894 Low back pain Problem 05/28/2019 12:00:00 AM EDT eCW1 ([facility]) M46.1 [id number] Bilateral sacroiliitis Problem 05/28/2019 12:00:00 AM EDT eCW1 ([facility]) M46.1 86235950 Sacroiliitis Problem 04/21/2019 12:00:00 AM EDT eCW1 ([facility]) E78.00 097189242 Pure hypercholesterolemia Problem 03/26/2019 12:00:00 AM EST eCW1 ([facility]) J44.9 92524460 Chronic obstructive pulmonary di sease, unspecified COPD type Problem 03/26/2019 12:00:00 AM EST eCW1 ([facility]) E78.00 313032274 Pure hypercholesterolemia Problem 03/26/2019 12:00:00 AM EST eCW1 ([facility]) J44.9 94962218 Chronic obstructive pulmonary di sease, unspecified COPD type Problem 03/26/2019 12:00:00 AM EST eCW1 ([facility]) M75.41 Impingement syndrome of right shoulder I mpingement syndrome of right shoulder Diagnosis 04/01/2019 10:41:11 AM [facility] 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, 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, right upper limb Diagnosis 04/01/2019 10:41:11 AM [facility] Surgeries/Procedures Procedure Description Date Indications Data Source(s) Immunization: Flublok Quadrivalent (18 years & older) 0.5mL IM (Influenza) 01/15/2020 12:00:00 AM EST eCW1 ([facility]) INJ TRIGGER POINT 1/2 MUSCL 06/24/2019 12:00:00 AM EDT eCW1 ([facility]) PHYSICIAN TELEPHONE EVALUATION 11-20 MIN 06/12/2019 12 :00:00 AM EDT eCW1 ([facility]) ESTABILISHED PATIENT [facility] FACILITY CHARGE 020 12:00:00 AM EDT eCW1 ([facility]) SURGERY CASE REQUEST OUTSIDE FACILITY ONLY SURGERY CA SE REQUEST OUTSIDE FACILITY ONLY Routine 04/01/2019 11:37 AM EST Cubital tunnel syndrome on right 04/01/2019 04:37:19 PM EST Cubital tunnel syndrome on right [facility] Cubital tunnel syndrome on right Lumbar/Sacral w/ Imaging 03/25/2019 12:00:00 AM EST eCW1 ([facility]) RADXPS IN END [id number] PXD 03/25/2019 12:00:00 AM ES T eCW1 ([facility]) Results ID Date Data Source [id number] 02/29/2020 05:49:00 PM EST [facility] Name Value Range Interpretation Code Description Data Abbey rce(s) Supporting Document(s) SARS-CoV-2 (COVID 19) NEGATIVE - SARS-CoV-2 (COVID19) [facility] This lab was ordered by [facility] a nd reported by [facility]. ID Date Data Source Comprehensive Metabolic Profile (CMP) 12/18/2019 08:27:18 AM EST eCW1 ([facility]) Name Value Range Interpretation Code Description Data Abbey rce(s) Supporting Document(s) 92 GLUCOSE, FASTING eCW1 ([facility]) 15 BLOOD UREA NITROGEN eCW1 ([facility]) 1.01 CREATININE FOR GFR eCW1 ([facility]) 102 CHLORIDE LEVEL eCW1 ([facility]) 135 SODIUM LEVEL eCW1 ([facility]) 5.2 POTASSIUM SERUM eCW1 ([facility]) > 60.0 GLOMERULAR FILTRATION RATE eCW 1 ([facility]) 28 CARBON DIOXIDE LEVEL eCW1 ([facility]) 14 ALT/SGPT eCW1 ([facility]) 9 AST/SGOT eCW1 ([facility]) 9.5 CALCIUM LEVEL eCW1 ([facility]) 7.5 TOTAL PROTEIN eCW1 ([facility]) 0.3 BILIRUBIN,TOTAL eCW1 ([facility]) 101 ALKALINE PHOSPHATASE eCW1 ([facility]) 4.3 ALBUMIN eCW1 ([facility]) 1.3 ALBUMIN/GLOBULIN RATIO eCW1 ([facility]) ID Date Data Source [id number] 12/06/2019 10:45:00 AM EDT [facility] Name Value Range Interpretation Code Description Data Abbey rce(s) Supporting Document(s) SARS coronavirus 2 RNA [facility] This lab was ordered by [facility] and reported by [facility]. ID Date Data Source [facility] GUIDE SPINE INJECTION (PAIN) 11/12/2019 05:47:51 AM EDT eCW1 ([facility]) Name Value Range Interpretation Code Description Data Abbey rce(s) Supporting Document(s) [facility] FLUORO GUIDE SPINE IN JECTION (PAIN) eCW1 ([facility]) ID Date Data Source [id number] 11/07/2019 10:00:00 AM EDT [facility] Name Value Range Interpretation Code Description Data Abbey rce(s) Supporting Document(s) SARS coronavirus 2 RNA [facility] This lab was ordered by [facility] and reported by [facility]. ID Date Data Source [id number] 07/11/2019 11:25:00 AM EDT [facility] Name Value Range Interpretation Code Description Data Abbey rce(s) Supporting Document(s) SARS CORONAVIRUS 2 RNA [facility] This lab was ordered by [facility] and reported by [facility]. ID Date Data Source [id number] 04/04/2019 03:33:54 PM [facility] Name Value Range Interpretation Code Description Data Abbey rce(s) Supporting Document(s) Progress Note [facility] [id number] lbm [file] [id number] Procedure Social History Code Duration Value Status Description Data Source(s ) Smoking 02/16/2020 12:00:00 AM EST Current Smoker completed Curre nt Smoker eCW1 ([facility]) Smoking 02/16/2020 12:00:00 AM EST Current Smoker completed Curre nt Smoker eCW1 ([facility]) Smoking 02/16/2020 12:00:00 AM EST Current Smoker completed Curre nt Smoker eCW1 ([facility]) Smoking 02/16/2020 12:00:00 AM EST Current Smoker completed Curre nt Smoker eCW1 ([facility]) Smoking 02/16/2020 12:00:00 AM EST Current Smoker completed Curre nt Smoker eCW1 ([facility]) Smoking 01/28/2020 12:00:00 AM EST Current Smoker completed Curre nt Smoker eCW1 ([facility]) Smoking 01/28/2020 12:00:00 AM EST Current Smoker completed Curre nt Smoker eCW1 ([facility]) Smoking 01/28/2020 12:00:00 AM EST Current Smoker completed Curre nt Smoker eCW1 ([facility]) Smoking 01/28/2020 12:00:00 AM EST Current Smoker completed Curre nt Smoker eCW1 ([facility]) Smoking 01/28/2020 12:00:00 AM EST Current Smoker completed Curre nt Smoker eCW1 ([facility]) Smoking 01/28/2020 12:00:00 AM EST Current Smoker completed Curre nt Smoker eCW1 ([facility]) Smoking 01/15/2020 12:00:00 AM EST Current Smoker completed Curre nt Smoker eCW1 ([facility]) Smoking 01/15/2020 12:00:00 AM EST Current Smoker completed Curre nt Smoker eCW1 ([facility]) Smoking 01/15/2020 12:00:00 AM EST Current Smoker completed Curre nt Smoker eCW1 ([facility]) Smoking 01/15/2020 12:00:00 AM EST Current Smoker completed Curre nt Smoker eCW1 ([facility]) Smoking 01/15/2020 12:00:00 AM EST Current Smoker completed Curre nt Smoker eCW1 ([facility]) Smoking 01/15/2020 12:00:00 AM EST Current Smoker completed Curre nt Smoker eCW1 ([facility]) Smoking 01/15/2020 12:00:00 AM EST Current Smoker completed Curre nt Smoker eCW1 ([facility]) Smoking 01/15/2020 12:00:00 AM EST Current Smoker completed Curre nt Smoker eCW1 ([facility]) Smoking 01/15/2020 12:00:00 AM EST Current Smoker completed Curre nt Smoker eCW1 ([facility]) Smoking 01/15/2020 12:00:00 AM EST Current Smoker completed Curre nt Smoker eCW1 ([facility]) Smoking 01/15/2020 12:00:00 AM EST Current Smoker completed Curre nt Smoker eCW1 ([facility]) Smoking 01/15/2020 12:00:00 AM EST Current Smoker completed Curre nt Smoker eCW1 ([facility]) Smoking 01/15/2020 12:00:00 AM EST Current Smoker completed Curre nt Smoker eCW1 ([facility]) Smoking 01/15/2020 12:00:00 AM EST Current Smoker completed Curre nt Smoker eCW1 ([facility]) Smoking 12/24/2019 12:00:00 AM EST Current Smoker completed Curre nt Smoker eCW1 ([facility]) Smoking 12/24/2019 12:00:00 AM EST Current Smoker completed Curre nt Smoker eCW1 ([facility]) Smoking 12/24/2019 12:00:00 AM EST Current Smoker completed Curre nt Smoker eCW1 ([facility]) Smoking 12/24/2019 12:00:00 AM EST Current Smoker completed Curre nt Smoker eCW1 ([facility]) Smoking 12/24/2019 12:00:00 AM EST Current Smoker completed Curre nt Smoker eCW1 ([facility]) Smoking 12/24/2019 12:00:00 AM EST Current Smoker completed Curre nt Smoker eCW1 ([facility]) Smoking 12/24/2019 12:00:00 AM EST Current Smoker completed Curre nt Smoker eCW1 ([facility]) Smoking 12/24/2019 12:00:00 AM EST Current Smoker completed Curre nt Smoker eCW1 ([facility]) Smoking 12/24/2019 12:00:00 AM EST Current Smoker completed Curre nt Smoker eCW1 ([facility]) Smoking 12/24/2019 12:00:00 AM EST Current Smoker completed Curre nt Smoker eCW1 ([facility]) Smoking 12/24/2019 12:00:00 AM EST Current Smoker completed Curre nt Smoker eCW1 ([facility]) Smoking 12/24/2019 12:00:00 AM EST Current Smoker completed Curre nt Smoker eCW1 ([facility]) Smoking 12/24/2019 12:00:00 AM EST Current Smoker completed Curre nt Smoker eCW1 ([facility]) Smoking 12/24/2019 12:00:00 AM EST Current Smoker completed Curre nt Smoker eCW1 ([facility]) Smoking 12/24/2019 12:00:00 AM EST Current Smoker completed Curre nt Smoker eCW1 ([facility]) Smoking 12/24/2019 12:00:00 AM EST Current Smoker completed Curre nt Smoker eCW1 ([facility]) Smoking 12/24/2019 12:00:00 AM EST Current Smoker completed Curre nt Smoker eCW1 ([facility]) Smoking 12/24/2019 12:00:00 AM EST Current Smoker completed Curre nt Smoker eCW1 ([facility]) Smoking 12/24/2019 12:00:00 AM EST Current Smoker completed Curre nt Smoker eCW1 ([facility]) Smoking 12/24/2019 12:00:00 AM EST Current Smoker completed Curre nt Smoker eCW1 ([facility]) Smoking 12/24/2019 12:00:00 AM EST Current Smoker completed Curre nt Smoker eCW1 ([facility]) Smoking 12/24/2019 12:00:00 AM EST Current Smoker completed Curre nt Smoker eCW1 ([facility]) Smoking 12/24/2019 12:00:00 AM EST Current Smoker completed Curre nt Smoker eCW1 ([facility]) Smoking 12/24/2019 12:00:00 AM EST Current Smoker completed Curre nt Smoker eCW1 ([facility]) Smoking 12/24/2019 12:00:00 AM EST Current Smoker completed Curre nt Smoker eCW1 ([facility]) Smoking 12/22/2019 12:00:00 AM EST Current Smoker completed Curre nt Smoker eCW1 ([facility]) Smoking 12/22/2019 12:00:00 AM EST Current Smoker completed Curre nt Smoker eCW1 ([facility]) Smoking 12/22/2019 12:00:00 AM EST Current Smoker completed Curre nt Smoker eCW1 ([facility]) Smoking 12/18/2019 12:00:00 AM EST Current Smoker completed Curre nt Smoker eCW1 ([facility]) Smoking 12/18/2019 12:00:00 AM EST Current Smoker completed Curre nt Smoker eCW1 ([facility]) Smoking 12/18/2019 12:00:00 AM EST Current Smoker completed Curre nt Smoker eCW1 ([facility]) Smoking 12/18/2019 12:00:00 AM EST Current Smoker completed Curre nt Smoker eCW1 ([facility]) Smoking 12/18/2019 12:00:00 AM EST Current Smoker completed Curre nt Smoker eCW1 ([facility]) Smoking 12/18/2019 12:00:00 AM EST Current Smoker completed Curre nt Smoker eCW1 ([facility]) Smoking 12/11/2019 12:00:00 AM EDT Current Smoker completed Curre nt Smoker eCW1 ([facility]) Smoking 12/11/2019 12:00:00 AM EDT Current Smoker completed Curre nt Smoker eCW1 ([facility]) Smoking 12/11/2019 12:00:00 AM EDT Current Smoker completed Curre nt Smoker eCW1 ([facility]) Smoking 12/11/2019 12:00:00 AM EDT Current Smoker completed Curre nt Smoker eCW1 ([facility]) Smoking 12/09/2019 12:00:00 AM EDT Current Smoker completed Curre nt Smoker eCW1 ([facility]) Smoking 11/30/2019 12:00:00 AM EDT Current Smoker completed Curre nt Smoker eCW1 ([facility]) Smoking 11/30/2019 12:00:00 AM EDT Current Smoker completed Curre nt Smoker eCW1 ([facility]) Smoking 11/30/2019 12:00:00 AM EDT Current Smoker completed Curre nt Smoker eCW1 ([facility]) Smoking 11/30/2019 12:00:00 AM EDT Current Smoker completed Curre nt Smoker eCW1 ([facility]) Smoking 11/30/2019 12:00:00 AM EDT Current Smoker completed Curre nt Smoker eCW1 ([facility]) Smoking 11/30/2019 12:00:00 AM EDT Current Smoker completed Curre nt Smoker eCW1 ([facility]) Smoking 11/24/2019 12:00:00 AM EDT Current Smoker completed Curre nt Smoker eCW1 ([facility]) Smoking 11/12/2019 12:00:00 AM EDT Current Smoker completed Curre nt Smoker eCW1 ([facility]) Smoking 11/12/2019 12:00:00 AM EDT Current Smoker completed Curre nt Smoker eCW1 ([facility]) Smoking 09/04/2019 12:00:00 AM EDT Current Smoker completed Curre nt Smoker eCW1 ([facility]) Smoking 09/04/2019 12:00:00 AM EDT Current Smoker completed Curre nt Smoker eCW1 ([facility]) Smoking 09/04/2019 12:00:00 AM EDT Current Smoker completed Curre nt Smoker eCW1 ([facility]) Smoking 09/04/2019 12:00:00 AM EDT Current Smoker completed Curre nt Smoker eCW1 ([facility]) Smoking 09/04/2019 12:00:00 AM EDT Current Smoker completed Curre nt Smoker eCW1 ([facility]) Smoking 09/04/2019 12:00:00 AM EDT Current Smoker completed Curre nt Smoker eCW1 ([facility]) Smoking 09/04/2019 12:00:00 AM EDT Current Smoker completed Curre nt Smoker eCW1 ([facility]) Smoking 08/31/2019 12:00:00 AM EDT Current Smoker completed Curre nt Smoker eCW1 ([facility]) Smoking 08/31/2019 12:00:00 AM EDT Current Smoker completed Curre nt Smoker eCW1 ([facility]) Smoking 08/31/2019 12:00:00 AM EDT Current Smoker completed Curre nt Smoker eCW1 ([facility]) Smoking 08/25/2019 12:00:00 AM EDT Current Smoker completed Curre nt Smoker eCW1 ([facility]) Smoking 08/25/2019 12:00:00 AM EDT Current Smoker completed Curre nt Smoker eCW1 ([facility]) Smoking 08/25/2019 12:00:00 AM EDT Current Smoker completed Curre nt Smoker eCW1 ([facility]) Smoking 08/25/2019 12:00:00 AM EDT Current Smoker completed Curre nt Smoker eCW1 ([facility]) Smoking 08/25/2019 12:00:00 AM EDT Current Smoker completed Curre nt Smoker eCW1 ([facility]) Smoking 08/04/2019 12:00:00 AM EDT Current Smoker completed Curre nt Smoker eCW1 ([facility]) Smoking 07/13/2019 12:00:00 AM EDT Current Smoker completed Curre nt Smoker eCW1 ([facility]) Smoking 07/13/2019 12:00:00 AM EDT Current Smoker completed Curre nt Smoker eCW1 ([facility]) Smoking 07/13/2019 12:00:00 AM EDT Current Smoker completed Curre nt Smoker eCW1 ([facility]) Smoking 07/13/2019 12:00:00 AM EDT Current Smoker completed Curre nt Smoker eCW1 ([facility]) Alcohol intake 04/04/2019 12:00:00 AM EST Current non-d alma of alcohol (finding) completed Current non-drinker of alcohol (finding) [facility] Cigarette pack-years 04/04/2019 12:00:00 AM EST UNK completed [facility] Cigarettes smoked current (pack per day) - Reported 04/04/19 12:00:00 AM EST UNK completed [facility] Smoking 04/04/2019 12:00:00 AM EST Current every day smoker co mpleted Current every day smoker [facility] Vital Signs ID Date Data Source UNK Name Value Range Interpretation Code Description Data Source(s) Diastolic blood pressure 84 mm[Hg] 84 mm[Hg] eCW1 ([facility]) Systolic blood pressure 130 mm[Hg] 130 mm[Hg] e CW1 ([facility]) Body temperature 97.5 [degF] 97.5 [degF] eCW1 ( [facility]) Respiratory rate 18 /min 18 /min eCW1 ([facility]) Heart rate 102 /min 102 /min eCW1 ([facility]) Body mass index (BMI) [Ratio] 23.03 kg/m2 23.03 kg/m2 eCW1 ([facility]) Body height 69 [in_i] 69 [in_i] eCW1 ([facility]) Body weight 156 [lb_av] 156 [lb_av] eCW1 ([facility]) Diastolic blood pressure 78 mm[Hg] 78 mm[Hg] eCW1 ([facility]) Systolic blood pressure 132 mm[Hg] 132 mm[Hg] e CW1 ([facility]) Body temperature 98.0 [degF] 98.0 [degF] eCW1 ( [facility]) Respiratory rate 18 /min 18 /min eCW1 ([facility]) Heart rate 99 /min 99 /min eCW1 ([facility]) Body mass index (BMI) [Ratio] 23.33 kg/m2 23.33 kg/m2 eCW1 ([facility]) Body height 69 [in_i] 69 [in_i] eCW1 ([facility]) Body weight 158 [lb_av] 158 [lb_av] eCW1 ([facility]) Diastolic blood pressure 90 mm[Hg] 90 mm[Hg] eCW1 ([facility]) Systolic blood pressure 140 mm[Hg] 140 mm[Hg] e CW1 ([facility]) Body temperature [degF] eCW1 ([facility]) Respiratory rate 18 /min 18 /min eCW1 ([facility]) Heart rate 112 /min 112 /min eCW1 ([facility]) Body mass index (BMI) [Ratio] 23.18 kg/m2 23.18 kg/m2 eCW1 ([facility]) Body height 69 [in_i] 69 [in_i] eCW1 ([facility]) Body weight 157 [lb_av] 157 [lb_av] eCW1 ([facility]) Diastolic blood pressure 80 mm[Hg] 80 mm[Hg] eCW1 ([facility]) Systolic blood pressure 130 mm[Hg] 130 mm[Hg] e CW1 ([facility]) Body temperature 98.2 [degF] 98.2 [degF] eCW1 ( [facility]) Respiratory rate 18 /min 18 /min eCW1 ([facility]) Heart rate 104 /min 104 /min eCW1 ([facility]) Body mass index (BMI) [Ratio] 23.45 kg/m2 23.45 kg/m2 W1 ([facility]) Body height 69 [in_i] 69 [in_i] eCW1 ([facility]) Body weight 158.8 [lb_av] 158.8 [lb_av] eCW1 ([facility]) Diastolic blood pressure 100 mm[Hg] 100 mm[Hg] eCW1 ([facility]) Systolic blood pressure 150 mm[Hg] 150 mm[Hg] e CW1 ([facility]) Body temperature 98.2 [degF] 98.2 [degF] eCW1 ( [facility]) Respiratory rate 18 /min 18 /min eCW1 ([facility]) Heart rate 92 /min 92 /min eCW1 ([facility]) Body mass index (BMI) [Ratio] 23.74 kg/m2 23.74 kg/m2 eCW1 ([facility]) Body height 69 [in_i] 69 [in_i] eCW1 ([facility]) Body weight 160.8 [lb_av] 160.8 [lb_av] eCW1 ([facility]) Diastolic blood pressure 98 mm[Hg] 98 mm[Hg] eCW1 ([facility]) Systolic blood pressure 146 mm[Hg] 146 mm[Hg] e CW1 ([facility]) Body temperature 97.6 [degF] 97.6 [degF] eCW1 ( [facility]) Respiratory rate 18 /min 18 /min eCW1 ([facility]) Heart rate 75 /min 75 /min eCW1 ([facility]) Body mass index (BMI) [Ratio] 23.86 kg/m2 23.86 kg/m2 eCW1 ([facility]) Body height 69 [in_i] 69 [in_i] eCW1 ([facility]) Body weight 161.6 [lb_av] 161.6 [lb_av] eCW1 ([facility]) Diastolic blood pressure 93 mm[Hg] 93 mm[Hg] eCW1 ([facility]) Systolic blood pressure 136 mm[Hg] 136 mm[Hg] e CW1 ([facility]) Body temperature 98.6 [degF] 98.6 [degF] eCW1 ( [facility]) Respiratory rate 16 /min 16 /min eCW1 ([facility]) Heart rate 69 /min 69 /min eCW1 ([facility]) Body mass index (BMI) [Ratio] 23.63 kg/m2 23.63 kg/m2 eCW1 ([facility]) Body height 69 [in_i] 69 [in_i] eCW1 ([facility]) Body weight 160 [lb_av] 160 [lb_av] eCW1 ([facility]) Diastolic blood pressure 96 mm[Hg] 96 mm[Hg] eCW1 ([facility]) Systolic blood pressure 148 mm[Hg] 148 mm[Hg] e CW1 ([facility]) Body temperature 98.3 [degF] 98.3 [degF] eCW1 ( [facility]) Respiratory rate 18 /min 18 /min eCW1 ([facility]) Heart rate 73 /min 73 /min eCW1 ([facility]) Body mass index (BMI) [Ratio] 23.42 kg/m2 23.42 kg/m2 eCW1 ([facility]) Body height 69 [in_i] 69 [in_i] eCW1 ([facility]) Body weight 158.6 [lb_av] 158.6 [lb_av] eCW1 ([facility]) Diastolic blood pressure 80 mm[Hg] 80 mm[Hg] eCW1 ([facility]) Systolic blood pressure 120 mm[Hg] 120 mm[Hg] e CW1 ([facility]) Body temperature 97.8 [degF] 97.8 [degF] eCW1 ( [facility]) Respiratory rate 18 /min 18 /min eCW1 ([facility]) Heart rate 103 /min 103 /min eCW1 ([facility]) Body mass index (BMI) [Ratio] 24.19 kg/m2 24.19 kg/m2 eCW1 ([facility]) Body height 69 [in_i] 69 [in_i] eCW1 ([facility]) Body weight 163.8 [lb_av] 163.8 [lb_av] eCW1 ([facility]) Diastolic blood pressure 84 mm[Hg] 84 mm[Hg] eCW1 ([facility]) Systolic blood pressure 198 mm[Hg] 198 mm[Hg] e CW1 ([facility]) Body temperature 97.0 [degF] 97.0 [degF] eCW1 ( [facility]) Respiratory rate 18 /min 18 /min eCW1 ([facility]) Heart rate 89 /min 89 /min eCW1 ([facility]) Body mass index (BMI) [Ratio] 24.25 kg/m2 24.25 kg/m2 eCW1 ([facility]) Body height 69 [in_i] 69 [in_i] eCW1 ([facility]) Body weight 164.2 [lb_av] 164.2 [lb_av] eCW1 ([facility]) Body mass index (BMI) [Ratio] 24.9 kg/m2 24.9 k g/m2 MEDENT ([facility] ) Body weight 164.00 [lb_av] 164.00 [lb_av] MEDEN T ([facility] ) Body height 68 [in_i] 68 [in_i] MEDENT ([facility], ) 5'8" Respiratory rate 14 /min 14 /min MEDENT ( [facility] ) Heart rate 78 /min 78 /min MEDENT ([facility] ) Diastolic blood pressure 80 mm[Hg] 80 mm[Hg] MEDENT ([facility] ) Systolic blood pressure 120 mm[Hg] 120 mm[Hg] M EDENT ([facility]) Diastolic blood pressure 82 mm[Hg] 82 mm[Hg] eCW1 ([facility]) Systolic blood pressure 120 mm[Hg] 120 mm[Hg] e CW1 ([facility]) Body temperature 98 [degF] 98 [degF] eCW1 ([facility]) Respiratory rate 18 /min 18 /min eCW1 ([facility]) Heart rate 125 /min 125 /min eCW1 ([facility]) Body mass index (BMI) [Ratio] 24.19 kg/m2 24.19 kg/m2 eCW1 ([facility]) Body height 69 [in_i] 69 [in_i] eCW1 ([facility]) Body weight 163.8 [lb_av] 163.8 [lb_av] eCW1 ([facility]) Diastolic blood pressure 78 mm[Hg] 78 mm[Hg] eCW1 ([facility]) Systolic blood pressure 130 mm[Hg] 130 mm[Hg] e CW1 ([facility]) Body temperature 98.5 [degF] 98.5 [degF] eCW1 ( [facility]) Respiratory rate 18 /min 18 /min eCW1 ([facility]) Heart rate 102 /min 102 /min eCW1 ([facility]) Body mass index (BMI) [Ratio] 24.57 kg/m2 24.57 kg/m2 eCW1 ([facility]) Body height 69 [in_i] 69 [in_i] eCW1 ([facility]) Body weight 166.4 [lb_av] 166.4 [lb_av] eCW1 ([facility]) Diastolic blood pressure 70 mm[Hg] 70 mm[Hg] eCW1 ([facility]) Systolic blood pressure 110 mm[Hg] 110 mm[Hg] e CW1 ([facility]) Body temperature 97.3 [degF] 97.3 [degF] eCW1 ( [facility]) Respiratory rate 18 /min 18 /min eCW1 ([facility]) Heart rate 107 /min 107 /min eCW1 ([facility]) Body mass index (BMI) [Ratio] 24.22 kg/m2 24.22 kg/m2 eCW1 ([facility]) Body height 69 [in_i] 69 [in_i] eCW1 ([facility]) Body weight 164 [lb_av] 164 [lb_av] eCW1 ([facility]) Diastolic blood pressure 85 mm[Hg] 85 mm[Hg] eCW1 ([facility]) Systolic blood pressure 112 mm[Hg] 112 mm[Hg] e CW1 ([facility]) Body temperature 98.3 [degF] 98.3 [degF] eCW1 ( [facility]) Respiratory rate 18 /min 18 /min eCW1 ([facility]) Heart rate 107 /min 107 /min eCW1 ([facility]) Body mass index (BMI) [Ratio] 23.95 kg/m2 23.95 kg/m2 eCW1 ([facility]) Body height 69 [in_i] 69 [in_i] eCW1 ([facility]) Body weight 162.2 [lb_av] 162.2 [lb_av] eCW1 ([facility]) Diastolic blood pressure 88 mm[Hg] 88 mm[Hg] eCW1 ([facility]) Systolic blood pressure 135 mm[Hg] 135 mm[Hg] e CW1 ([facility]) Body temperature 97.5 [degF] 97.5 [degF] [facility] [facility]) Respiratory rate 18 /min 18 /min eCW1 ([facility]) Heart rate 86 /min 86 /min eCW1 ([facility]) Body mass index (BMI) [Ratio] 24.22 kg/m2 24.22 kg/m2 W1 ([facility]) Body height 69 [in_us] 69 [in_us] eCW1 ([facility]) Body weight Measured 164 [lb_av] 164 [lb_av] eC W1 ([facility]) Diastolic blood pressure 86 mm[Hg] 86 mm[Hg] eCW1 ([facility]) Systolic blood pressure 131 mm[Hg] 131 mm[Hg] e CW1 ([facility]) Body temperature 97.9 [degF] 97.9 [degF] eCW1 ( [facility]) Respiratory rate 16 /min 16 /min eCW1 ([facility]) Heart rate 93 /min 93 /min eCW1 ([facility]) Body mass index (BMI) [Ratio] 24.22 kg/m2 24.22 kg/m2 eCW1 ([facility]) Body height 69 [in_us] 69 [in_us] eCW1 ([facility]) Body weight Measured 164 [lb_av] 164 [lb_av] eC W1 ([facility]) Diastolic blood pressure 94 mm[Hg] 94 mm[Hg] eCW1 ([facility]) Systolic blood pressure 137 mm[Hg] 137 mm[Hg] e CW1 ([facility]) Body temperature 98.5 [degF] 98.5 [degF] eCW1 ( [facility]) Respiratory rate 16 /min 16 /min eCW1 ([facility]) Heart rate 90 /min 90 /min eCW1 ([facility]) Body mass index (BMI) [Ratio] 24.22 kg/m2 24.22 kg/m2 eCW1 ([facility]) Body height 69 [in_us] 69 [in_us] eCW1 ([facility]) Body weight Measured 164 [lb_av] 164 [lb_av] eC W1 ([facility]) Diastolic blood pressure 76 mm[Hg] 76 mm[Hg] eCW1 ([facility]) Systolic blood pressure 132 mm[Hg] 132 mm[Hg] e CW1 ([facility]) Body temperature 97.9 [degF] 97.9 [degF] eCW1 ( [facility]) Respiratory rate 18 /min 18 /min eCW1 ([facility]) Heart rate 81 /min 81 /min eCW1 ([facility]) Body mass index (BMI) [Ratio] 24.36 kg/m2 24.36 kg/m2 eCW1 ([facility]) Body height 69 [in_us] 69 [in_us] eCW1 ([facility]) Body weight Measured 165 [lb_av] 165 [lb_av] eC W1 ([facility]) Diastolic blood pressure 86 mm[Hg] 86 mm[Hg] eCW1 ([facility]) Systolic blood pressure 138 mm[Hg] 138 mm[Hg] e CW1 ([facility]) Body temperature 97.1 [degF] 97.1 [degF] eCW1 ( [facility]) Respiratory rate 18 /min 18 /min eCW1 ([facility]) Heart rate 77 /min 77 /min eCW1 ([facility]) Body mass index (BMI) [Ratio] 24.36 kg/m2 24.36 kg/m2 eCW1 ([facility]) Body height 69 [in_us] 69 [in_us] eCW1 ([facility]) Body weight Measured 165.0 [lb_av] 165.0 [lb_av ] eCW1 ([facility]) Diastolic blood pressure 91 mm[Hg] 91 mm[Hg] eCW1 ([facility]) Systolic blood pressure 145 mm[Hg] 145 mm[Hg] e CW1 ([facility]) Body temperature 97.9 [degF] 97.9 [degF] eCW1 ( [facility]) Respiratory rate 18 /min 18 /min eCW1 ([facility]) Heart rate 76 /min 76 /min eCW1 ([facility]) Body mass index (BMI) [Ratio] 24.13 kg/m2 24.13 kg/m2 W1 ([facility]) Body height 69 [in_us] 69 [in_us] eCW1 ([facility]) Body weight Measured 163.4 [lb_av] 163.4 [lb_av ] eCW1 ([facility]) Diastolic blood pressure 101 mm[Hg] 101 mm[Hg] eCW1 ([facility]) Systolic blood pressure 141 mm[Hg] 141 mm[Hg] e CW1 ([facility]) Body temperature 97.9 [degF] 97.9 [degF] eCW1 ( [facility]) Respiratory rate 18 /min 18 /min eCW1 ([facility]) Heart rate 82 /min 82 /min eCW1 ([facility]) Body mass index (BMI) [Ratio] 24.13 kg/m2 24.13 kg/m2 eCW1 ([facility]) Body height 69 [in_us] 69 [in_us] eCW1 ([facility]) Body weight Measured 163.4 [lb_av] 163.4 [lb_av ] eCW1 ([facility]) ID Date Data Source [id number] 06/01/2019 11:45:02 AM [facility] Name Value Range Interpretation Code Description Data Source(s) WEIGHT RECORDED 165 lb 165 lb [facility] Body height Measured 69 in 69 in [facility] Patient Treatment Plan of Care Planned Activity Planned Date Details Description Data Source (s) Morphine Sulfate 15 MG Oral Tablet 02/23/2020 12:00:00 AM EST eCW1 ([facility]) Acetaminophen 325 MG / Oxycodone Hydrochloride 10 MG O ral Tablet [Percocet] 02/23/2020 12:00:00 AM EST eCW1 ([facility]) Morphine Sulfate 15 MG Oral Tablet 02/23/2020 12:00:00 AM EST eCW1 ([facility]) Acetaminophen 325 MG / Oxycodone Hydrochloride 10 MG O ral Tablet [Percocet] 02/23/2020 12:00:00 AM EST eCW1 ([facility]) Morphine Sulfate 15 MG Oral Tablet 02/23/2020 12:00:00 AM EST eCW1 ([facility]) Acetaminophen 325 MG / Oxycodone Hydrochloride 10 MG O ral Tablet [Percocet] 02/23/2020 12:00:00 AM EST eCW1 ([facility]) Morphine Sulfate 15 MG Oral Tablet 02/23/2020 12:00:00 AM EST eCW1 ([facility]) Acetaminophen 325 MG / Oxycodone Hydrochloride 10 MG O ral Tablet [Percocet] 02/23/2020 12:00:00 AM EST eCW1 ([facility]) Morphine Sulfate 15 MG Oral Tablet 02/23/2020 12:00:00 AM EST eCW1 ([facility]) Acetaminophen 325 MG / Oxycodone Hydrochloride 10 MG O ral Tablet [Percocet] 02/23/2020 12:00:00 AM EST eCW1 ([facility]) Budesonide 180 MCG/ACT 02/16/2020 12:00:00 AM EST eCW1 ([facility]) Budesonide 180 MCG/ACT 02/16/2020 12:00:00 AM EST eCW1 ([facility]) Budesonide 180 MCG/ACT 02/16/2020 12:00:00 AM EST eCW1 ([facility]) Budesonide 180 MCG/ACT 02/16/2020 12:00:00 AM EST eCW1 ([facility]) Budesonide 180 MCG/ACT 02/16/2020 12:00:00 AM EST eCW1 ([facility]) Albuterol 0.833 MG/ML / Ipratropium [place] 0.167 MG/M L Inhalant Solution 01/28/2020 12:00:00 AM EST eCW1 ([facility]) Albuterol 0.833 MG/ML / Ipratropium [place] 0.167 MG/M L Inhalant Solution 01/28/2020 12:00:00 AM EST eCW1 ([facility]) Albuterol 0.833 MG/ML / Ipratropium [place] 0.167 MG/M L Inhalant Solution 01/28/2020 12:00:00 AM EST eCW1 ([facility]) Albuterol 0.833 MG/ML / Ipratropium [place] 0.167 MG/M L Inhalant Solution 01/28/2020 12:00:00 AM EST eCW1 ([facility]) Albuterol 0.833 MG/ML / Ipratropium [place] 0.167 MG/M L Inhalant Solution 01/28/2020 12:00:00 AM EST eCW1 ([facility]) Albuterol 0.833 MG/ML / Ipratropium [place] 0.167 MG/M L Inhalant Solution 01/28/2020 12:00:00 AM EST eCW1 ([facility]) Morphine Sulfate ER 15 MG 01/27/2020 12:00:00 AM EST eCW1 ([facility]) Morphine Sulfate 15 MG Extended Release Oral Tablet 01/27/20 12:00:00 AM EST eCW1 (Replaced by [facility]) Morphine Sulfate 15 MG Oral Tablet 01/27/2020 12:00:00 AM EST eCW1 ([facility]) Morphine Sulfate ER 15 MG 01/27/2020 12:00:00 AM EST eCW1 ([facility]) Morphine Sulfate 15 MG Extended Release Oral Tablet 01/27/20 12:00:00 AM EST eCW1 (Replaced by [facility]) Morphine Sulfate 15 MG Oral Tablet 01/27/2020 12:00:00 AM EST eCW1 ([facility]) Morphine Sulfate ER 15 MG 01/26/2020 12:00:00 AM EST eCW1 ([facility]) Acetaminophen 325 MG / Oxycodone Hydrochloride 10 MG O ral Tablet [Percocet] 01/22/2020 12:00:00 AM EST eCW1 ([facility]) Acetaminophen 325 MG / Oxycodone Hydrochloride 10 MG O ral Tablet [Percocet] 01/22/2020 12:00:00 AM EST eCW1 ([facility]) Acetaminophen 325 MG / Oxycodone Hydrochloride 10 MG O ral Tablet [Percocet] 01/22/2020 12:00:00 AM EST eCW1 ([facility]) Acetaminophen 325 MG / Oxycodone Hydrochloride 10 MG O ral Tablet [Percocet] 01/22/2020 12:00:00 AM EST eCW1 ([facility]) Acetaminophen 325 MG / Oxycodone Hydrochloride 10 MG O ral Tablet [Percocet] 01/22/2020 12:00:00 AM EST eCW1 ([facility]) Acetaminophen 325 MG / Oxycodone Hydrochloride 10 MG O ral Tablet [Percocet] 01/22/2020 12:00:00 AM EST eCW1 ([facility]) Acetaminophen 325 MG / Oxycodone Hydrochloride 10 MG O ral Tablet [Percocet] 01/22/2020 12:00:00 AM EST eCW1 ([facility]) Morphine Sulfate ER 15 MG 01/20/2020 12:00:00 AM EST eCW1 ([facility]) Morphine Sulfate ER 15 MG 01/20/2020 12:00:00 AM EST eCW1 ([facility]) Morphine Sulfate ER 15 MG 01/20/2020 12:00:00 AM EST eCW1 ([facility]) Morphine Sulfate ER 15 MG 01/20/2020 12:00:00 AM EST eCW1 ([facility]) Morphine Sulfate ER 15 MG 01/20/2020 12:00:00 AM EST eCW1 ([facility]) Morphine Sulfate ER 15 MG 01/20/2020 12:00:00 AM EST eCW1 ([facility]) Morphine Sulfate ER 15 MG 01/20/2020 12:00:00 AM EST eCW1 ([facility]) duloxetine 30 MG Delayed Release Oral Capsule [Cymbalt a] 01/13/2020 12:00:00 AM EST eCW1 ([facility]) Spiriva Respimat 1.25 MCG/ACT 12/29/2019 12:00:00 AM EST eCW1 ([facility]) Spiriva Respimat 1.25 MCG/ACT 12/29/2019 12:00:00 AM EST eCW1 ([facility]) Spiriva Respimat 1.25 MCG/ACT 12/29/2019 12:00:00 AM EST eCW1 ([facility]) Spiriva Respimat 1.25 MCG/ACT 12/29/2019 12:00:00 AM EST eCW1 ([facility]) Spiriva Respimat 1.25 MCG/ACT 12/29/2019 12:00:00 AM EST eCW1 ([facility]) Spiriva Respimat 1.25 MCG/ACT 12/29/2019 12:00:00 AM EST eCW1 ([facility]) Spiriva Respimat 1.25 MCG/ACT 12/29/2019 12:00:00 AM EST eCW1 ([facility]) Spiriva Respimat 1.25 MCG/ACT 12/29/2019 12:00:00 AM EST eCW1 ([facility]) Spiriva Respimat 1.25 MCG/ACT 12/29/2019 12:00:00 AM EST eCW1 ([facility]) Spiriva Respimat 1.25 MCG/ACT 12/29/2019 12:00:00 AM EST eCW1 ([facility]) Spiriva Respimat 1.25 MCG/ACT 12/29/2019 12:00:00 AM EST eCW1 ([facility]) Spiriva Respimat 1.25 MCG/ACT 12/29/2019 12:00:00 AM EST eCW1 ([facility]) Acetaminophen 325 MG / Oxycodone Hydrochloride 10 MG O ral Tablet [Percocet] 12/22/2019 12:00:00 AM EST eCW1 ([facility]) Omeprazole 40 MG Delayed Release Oral Capsule 12/22/2019 12:00:00 A M EST eCW1 ([facility]) Sucralfate 1000 MG Oral Tablet 12/22/2019 12:00:00 AM EST eCW1 ([facility]) Acetaminophen 325 MG / Oxycodone Hydrochloride 10 MG O ral Tablet [Percocet] 12/22/2019 12:00:00 AM EST eCW1 ([facility]) Omeprazole 40 MG Delayed Release Oral Capsule 12/22/2019 12:00:00 A M EST eCW1 ([facility]) Sucralfate 1000 MG Oral Tablet 12/22/2019 12:00:00 AM EST eCW1 ([facility]) Acetaminophen 325 MG / Oxycodone Hydrochloride 10 MG O ral Tablet [Percocet] 12/22/2019 12:00:00 AM EST eCW1 ([facility]) Sucralfate 1000 MG Oral Tablet 12/22/2019 12:00:00 AM EST eCW1 ([facility]) Omeprazole 40 MG Delayed Release Oral Capsule 12/22/2019 12:00:00 A M EST eCW1 ([facility]) Acetaminophen 325 MG / Oxycodone Hydrochloride 10 MG O ral Tablet [Percocet] 12/22/2019 12:00:00 AM EST eCW1 ([facility]) Sucralfate 1000 MG Oral Tablet 12/22/2019 12:00:00 AM EST eCW1 ([facility]) Omeprazole 40 MG Delayed Release Oral Capsule 12/22/2019 12:00:00 A M EST eCW1 ([facility]) Acetaminophen 325 MG / Oxycodone Hydrochloride 10 MG O ral Tablet [Percocet] 12/22/2019 12:00:00 AM EST eCW1 ([facility]) Sucralfate 1000 MG Oral Tablet 12/22/2019 12:00:00 AM EST eCW1 ([facility]) Omeprazole 40 MG Delayed Release Oral Capsule 12/22/2019 12:00:00 A M EST eCW1 ([facility]) Acetaminophen 325 MG / Oxycodone Hydrochloride 10 MG O ral Tablet [Percocet] 12/22/2019 12:00:00 AM EST eCW1 ([facility]) Sucralfate 1000 MG Oral Tablet 12/22/2019 12:00:00 AM EST eCW1 ([facility]) Omeprazole 40 MG Delayed Release Oral Capsule 12/22/2019 12:00:00 A M EST eCW1 ([facility]) Omeprazole 40 MG Delayed Release Oral Capsule 12/22/2019 12:00:00 A M EST eCW1 ([facility]) Sucralfate 1000 MG Oral Tablet 12/22/2019 12:00:00 AM EST eCW1 ([facility]) Omeprazole 40 MG Delayed Release Oral Capsule 12/22/2019 12:00:00 A M EST eCW1 ([facility]) Sucralfate 1000 MG Oral Tablet 12/22/2019 12:00:00 AM EST eCW1 ([facility]) Omeprazole 40 MG Delayed Release Oral Capsule 12/22/2019 12:00:00 A M EST eCW1 ([facility]) Sucralfate 1000 MG Oral Tablet 12/22/2019 12:00:00 AM EST eCW1 ([facility]) Omeprazole 40 MG Delayed Release Oral Capsule 12/22/2019 12:00:00 A M EST eCW1 ([facility]) Sucralfate 1000 MG Oral Tablet 12/22/2019 12:00:00 AM EST eCW1 ([facility]) Omeprazole 40 MG Delayed Release Oral Capsule 12/22/2019 12:00:00 A M EST eCW1 ([facility]) Sucralfate 1000 MG Oral Tablet 12/22/2019 12:00:00 AM EST eCW1 ([facility]) Omeprazole 40 MG Delayed Release Oral Capsule 12/22/2019 12:00:00 A M EST eCW1 ([facility]) Sucralfate 1000 MG Oral Tablet 12/22/2019 12:00:00 AM EST eCW1 ([facility]) Omeprazole 40 MG Delayed Release Oral Capsule 12/22/2019 12:00:00 A M EST eCW1 ([facility]) Sucralfate 1000 MG Oral Tablet 12/22/2019 12:00:00 AM EST eCW1 ([facility]) Acetaminophen 325 MG / Oxycodone Hydrochloride 10 MG O ral Tablet [Percocet] 12/22/2019 12:00:00 AM EST eCW1 ([facility]) Omeprazole 40 MG Delayed Release Oral Capsule 12/22/2019 12:00:00 A M EST eCW1 ([facility]) Sucralfate 1000 MG Oral Tablet 12/22/2019 12:00:00 AM EST eCW1 ([facility]) Omeprazole 40 MG Delayed Release Oral Capsule 12/22/2019 12:00:00 A M EST eCW1 ([facility]) Sucralfate 1000 MG Oral Tablet 12/22/2019 12:00:00 AM EST eCW1 ([facility]) Omeprazole 40 MG Delayed Release Oral Capsule 12/22/2019 12:00:00 A M EST eCW1 ([facility]) Sucralfate 1000 MG Oral Tablet 12/22/2019 12:00:00 AM EST eCW1 ([facility]) Omeprazole 40 MG Delayed Release Oral Capsule 12/22/2019 12:00:00 A M EST eCW1 ([facility]) Sucralfate 1000 MG Oral Tablet 12/22/2019 12:00:00 AM EST eCW1 ([facility]) Acetaminophen 325 MG / Oxycodone Hydrochloride 10 MG O ral Tablet [Percocet] 11/24/2019 12:00:00 AM EDT eCW1 ([facility]) Diazepam 2 MG Oral Tablet 11/10/2019 12:00:00 AM EDT eCW1 ([facility]) Diazepam 2 MG Oral Tablet 11/10/2019 12:00:00 AM EDT eCW1 ([facility]) Diazepam 2 MG Oral Tablet 11/10/2019 12:00:00 AM EDT eCW1 ([facility]) Diazepam 2 MG Oral Tablet 11/10/2019 12:00:00 AM EDT eCW1 ([facility]) Diazepam 2 MG Oral Tablet 11/10/2019 12:00:00 AM EDT eCW1 ([facility]) Diazepam 2 MG Oral Tablet 11/10/2019 12:00:00 AM EDT eCW1 ([facility]) Diazepam 2 MG Oral Tablet 11/10/2019 12:00:00 AM EDT eCW1 ([facility]) Diazepam 2 MG Oral Tablet 11/10/2019 12:00:00 AM EDT eCW1 ([facility]) Diazepam 2 MG Oral Tablet 11/10/2019 12:00:00 AM EDT eCW1 ([facility]) Diazepam 2 MG Oral Tablet 11/10/2019 12:00:00 AM EDT eCW1 ([facility]) Diazepam 2 MG Oral Tablet 11/10/2019 12:00:00 AM EDT eCW1 ([facility]) Diazepam 2 MG Oral Tablet 11/10/2019 12:00:00 AM EDT eCW1 ([facility]) Diazepam 2 MG Oral Tablet 11/10/2019 12:00:00 AM EDT eCW1 ([facility]) Diazepam 2 MG Oral Tablet 11/10/2019 12:00:00 AM EDT eCW1 ([facility]) Diazepam 2 MG Oral Tablet 11/10/2019 12:00:00 AM EDT eCW1 ([facility]) Diazepam 2 MG Oral Tablet 11/10/2019 12:00:00 AM EDT eCW1 ([facility]) Diazepam 2 MG Oral Tablet 11/10/2019 12:00:00 AM EDT eCW1 ([facility]) Diazepam 2 MG Oral Tablet 11/10/2019 12:00:00 AM EDT eCW1 ([facility]) Diazepam 2 MG Oral Tablet 11/10/2019 12:00:00 AM EDT eCW1 ([facility]) Diazepam 2 MG Oral Tablet 11/10/2019 12:00:00 AM EDT eCW1 ([facility]) Diazepam 2 MG Oral Tablet 11/10/2019 12:00:00 AM EDT eCW1 ([facility]) Diazepam 2 MG Oral Tablet 11/10/2019 12:00:00 AM EDT eCW1 ([facility]) Diazepam 2 MG Oral Tablet 11/10/2019 12:00:00 AM EDT eCW1 ([facility]) Diazepam 2 MG Oral Tablet 11/10/2019 12:00:00 AM EDT eCW1 ([facility]) Diazepam 2 MG Oral Tablet 11/10/2019 12:00:00 AM EDT eCW1 ([facility]) Diazepam 2 MG Oral Tablet 11/10/2019 12:00:00 AM EDT eCW1 ([facility]) Diazepam 2 MG Oral Tablet 11/10/2019 12:00:00 AM EDT eCW1 ([facility]) Diazepam 2 MG Oral Tablet 11/10/2019 12:00:00 AM EDT eCW1 ([facility]) Diazepam 2 MG Oral Tablet 11/10/2019 12:00:00 AM EDT eCW1 ([facility]) Diazepam 2 MG Oral Tablet 11/10/2019 12:00:00 AM EDT eCW1 ([facility]) Diazepam 2 MG Oral Tablet 11/10/2019 12:00:00 AM EDT eCW1 ([facility]) Diazepam 2 MG Oral Tablet 11/10/2019 12:00:00 AM EDT eCW1 ([facility]) Diazepam 2 MG Oral Tablet 11/10/2019 12:00:00 AM EDT eCW1 ([facility]) Diazepam 2 MG Oral Tablet 11/10/2019 12:00:00 AM EDT eCW1 ([facility]) Diazepam 2 MG Oral Tablet 11/10/2019 12:00:00 AM EDT eCW1 ([facility]) Diazepam 2 MG Oral Tablet 11/10/2019 12:00:00 AM EDT eCW1 ([facility]) Diazepam 2 MG Oral Tablet 11/10/2019 12:00:00 AM EDT eCW1 ([facility]) Diazepam 2 MG Oral Tablet 11/10/2019 12:00:00 AM EDT eCW1 ([facility]) Diazepam 2 MG Oral Tablet 11/10/2019 12:00:00 AM EDT eCW1 ([facility]) Diazepam 2 MG Oral Tablet 11/10/2019 12:00:00 AM EDT eCW1 ([facility]) Diazepam 2 MG Oral Tablet 11/10/2019 12:00:00 AM EDT eCW1 ([facility]) Diazepam 2 MG Oral Tablet 11/10/2019 12:00:00 AM EDT eCW1 ([facility]) Diazepam 2 MG Oral Tablet 11/10/2019 12:00:00 AM EDT eCW1 ([facility]) Diazepam 2 MG Oral Tablet 11/10/2019 12:00:00 AM EDT eCW1 ([facility]) Diazepam 2 MG Oral Tablet 11/10/2019 12:00:00 AM EDT eCW1 ([facility]) Diazepam 2 MG Oral Tablet 11/10/2019 12:00:00 AM EDT eCW1 ([facility]) Diazepam 2 MG Oral Tablet 11/10/2019 12:00:00 AM EDT eCW1 ([facility]) Diazepam 2 MG Oral Tablet 11/10/2019 12:00:00 AM EDT eCW1 ([facility]) Diazepam 2 MG Oral Tablet 11/10/2019 12:00:00 AM EDT eCW1 ([facility]) 28 ACTUAT tiotropium 0.0025 MG/ACTUAT Metered Dose Inh aler [Spiriva] 09/04/2019 12:00:00 AM EDT eCW1 ([facility]) 28 ACTUAT tiotropium 0.0025 MG/ACTUAT Metered Dose Inh aler [Spiriva] 09/04/2019 12:00:00 AM EDT eCW1 ([facility]) 28 ACTUAT tiotropium 0.0025 MG/ACTUAT Metered Dose Inh aler [Spiriva] 09/04/2019 12:00:00 AM EDT eCW1 ([facility]) 28 ACTUAT tiotropium 0.0025 MG/ACTUAT Metered Dose Inh aler [Spiriva] 09/04/2019 12:00:00 AM EDT eCW1 ([facility]) 28 ACTUAT tiotropium 0.0025 MG/ACTUAT Metered Dose Inh aler [Spiriva] 09/04/2019 12:00:00 AM EDT eCW1 ([facility]) 28 ACTUAT tiotropium 0.0025 MG/ACTUAT Metered Dose Inh aler [Spiriva] 09/04/2019 12:00:00 AM EDT eCW1 ([facility]) 28 ACTUAT tiotropium 0.0025 MG/ACTUAT Metered Dose Inh aler [Spiriva] 09/04/2019 12:00:00 AM EDT eCW1 ([facility]) Morphine Sulfate 15 MG Extended Release Oral Tablet 09/03/19 12:00:00 AM EDT eCW1 (Replaced by [facility]) 200 ACTUAT Albuterol 0.09 MG/ACTUAT Metered Dose Inhal er [Ventolin] 08/25/2019 12:00:00 AM EDT eCW1 ([facility]) tiotropium 0.018 MG/ACTUAT Inhalant Powder [Spiriva] 12:00:00 AM EDT eCW1 (Replaced by [facility]) 200 ACTUAT Albuterol 0.09 MG/ACTUAT Metered Dose Inhal er [Ventolin] 08/25/2019 12:00:00 AM EDT eCW1 ([facility]) tiotropium 0.018 MG/ACTUAT Inhalant Powder [Spiriva] 12:00:00 AM EDT eCW1 (Replaced by [facility]) 200 ACTUAT Albuterol 0.09 MG/ACTUAT Metered Dose Inhal er [Ventolin] 08/25/2019 12:00:00 AM EDT eCW1 ([facility]) tiotropium 0.018 MG/ACTUAT Inhalant Powder [Spiriva] 12:00:00 AM EDT eCW1 (Replaced by [facility]) 200 ACTUAT Albuterol 0.09 MG/ACTUAT Metered Dose Inhal er [Ventolin] 08/25/2019 12:00:00 AM EDT eCW1 ([facility]) tiotropium 0.018 MG/ACTUAT Inhalant Powder [Spiriva] 12:00:00 AM EDT eCW1 (Replaced by [facility]) 200 ACTUAT Albuterol 0.09 MG/ACTUAT Metered Dose Inhal er [Ventolin] 08/25/2019 12:00:00 AM EDT eCW1 ([facility]) tiotropium 0.018 MG/ACTUAT Inhalant Powder [Spiriva] 12:00:00 AM EDT eCW1 (Replaced by [facility]) Chlorthalidone 25 MG Oral Tablet 08/04/2019 12:00:00 AM EDT eCW1 ([facility]) Propranolol Hydrochloride 10 MG Oral Tablet 08/04/2019 12:00:00 AM EDT eCW1 ([facility]) Morphine Sulfate 15 MG Extended Release Oral Tablet 07/28/19 12:00:00 AM EDT eCW1 (Replaced by [facility]) Morphine Sulfate 15 MG Extended Release Oral Tablet 07/28/19 12:00:00 AM EDT eCW1 (Replaced by [facility]) Acetaminophen 325 MG / Oxycodone Hydrochloride 10 MG O ral Tablet [Percocet] 07/13/2019 12:00:00 AM EDT eCW1 ([facility]) Morphine Sulfate 15 MG Extended Release Oral Tablet 07/07/19 12:00:00 AM EDT eCW1 (Replaced by [facility]) Acetaminophen 325 MG / Oxycodone Hydrochloride 10 MG O ral Tablet [Percocet] 06/17/2019 12:00:00 AM EDT eCW1 ([facility]) Morphine Sulfate 15 MG Extended Release Oral Tablet 06/03/19 12:00:00 AM EDT eCW1 (Replaced by [facility]) Acetaminophen 325 MG / Oxycodone Hydrochloride 10 MG O ral Tablet [Percocet] 05/18/2019 12:00:00 AM EDT eCW1 ([facility]) Morphine Sulfate 15 MG Extended Release Oral Tablet 05/04/19 12:00:00 AM EDT eCW1 (Replaced by [facility]) Morphine Sulfate 15 MG Extended Release Oral Tablet 04/08/19 12:00:00 AM EST eCW1 (Replaced by [facility]) Diazepam 5 MG Oral Tablet 04/01/2019 12:00:00 AM [facility] atorvastatin 40 MG Oral Tablet 03/26/2019 12:00:00 AM EST eCW1 ([facility]) atorvastatin 40 MG Oral Tablet 03/26/2019 12:00:00 AM EST eCW1 ([facility]) atorvastatin 40 MG Oral Tablet 03/26/2019 12:00:00 AM EST eCW1 ([facility]) Nystatin 162731 UNT/ML Topical Cream 03/26/2019 12:00:00 AM EST eCW1 ([facility]) Nystatin 246153 UNT/ML Topical Cream 03/26/2019 12:00:00 AM EST eCW1 ([facility]) Nystatin 940011 UNT/ML Topical Cream 03/26/2019 12:00:00 AM EST eCW1 ([facility]) atorvastatin 40 MG Oral Tablet 03/26/2019 12:00:00 AM EST eCW1 ([facility]) Losartan Potassium 50 MG Oral Tablet 03/26/2019 12:00:00 AM [facility] Ergocalciferol 70620 UNT Oral Capsule 03/26/2019 12:00:00 AM [facility] atorvastatin 40 MG Oral Tablet 03/26/2019 12:00:00 AM [facility] Nystatin [id number] UNT/ML Topical Cream 03/26/2019 12:00:00 AM EST eCW1 ([facility]) atorvastatin 40 MG Oral Tablet 03/26/2019 12:00:00 AM EST eCW1 ([facility]) Acetaminophen 325 MG / Oxycodone Hydrochloride 10 MG O ral Tablet [Percocet] 03/25/2019 12:00:00 AM EST eCW1 ([facility]) Morphine Sulfate 15 MG Extended Release Oral Tablet 03/10/19 12:00:00 AM EST eCW1 (Replaced by [facility]) Diazepam 5 MG Oral Tablet 03/05/2019 12:00:00 AM [facility] Acetaminophen 325 MG / Oxycodone Hydrochloride 10 MG O ral Tablet [Percocet] 02/17/2019 12:00:00 AM EST eCW1 ([facility]) Morphine Sulfate 15 MG Extended Release Oral Tablet 02/12/19 12:00:00 AM EST eCW1 (Replaced by [facility]) duloxetine 30 MG Delayed Release Oral Capsule 12/30/2018 12:00:00 A M [facility] Losartan Potassium 25 MG Oral Tablet 05/14/2018 12:00:00 AM [facility] Propranolol Hydrochloride 20 MG Oral Tablet 01/13/2018 12:00:00 AM [facility] Oxycodone Hydrochloride 5 MG Oral Tablet 06/25/2017 12:00:00 AM [facility]
[2020-03-24] MEDS ORDERED: NS 1,000 ML IV ONE (07:00)
[2020-03-24 07:17] LABS: ALBUMIN 4.3 GM/DL (3.2-5.2); BILIRUBIN,DIRECT 0.1 MG/DL (0.0-0.2); BILIRUBIN,TOTAL 0.4 MG/DL (0.2-1.0)
[2020-03-24 07:24] LABS: ACETAMINOPHEN LEVEL < 2.0 UG/ML (10.0-30.0); CK-MB VALUE MASS 1.1 NG/ML (<3.6); CPK CREATINE PHOSPHOKINASE 187 U/L (39-308); ETHYL ALCOHOL (ETHANOL) < 0.003 % (0.000-0.010); MB/CK RELATIVE INDEX 0.59 (< OR =4); SALICYLATE LEVEL 4.7 MG/DL (5.0-30.0); TROPONIN I < 0.02 NG/ML (< 0.10)
[2020-03-24] MEDS ORDERED: MORPHINE 15 MG SA TAB PO ONE (07:45)
[2020-03-24] MEDS ORDERED: PROPRANOLOL 20 MG TAB PO ONE (07:45)
[2020-03-24] MEDS ORDERED: busPIRone 10 MG TAB PO ONE (07:45)
[2020-03-24 08:31] VITALS: BP 116/87
[2020-03-24 08:51] LABS: AMPHETAMINES LEVEL URINE NEGATIVE (NEGATIVE); BARBITURATES URINE NEGATIVE (NEGATIVE); BENZODIAZEPINES URINE NEGATIVE (NEGATIVE); CANNABINOIDS URINE NEGATIVE (NEGATIVE); COCAINE METABOLITE URINE NEGATIVE (NEGATIVE); METHADONE URINE NEGATIVE (NEGATIVE); OPIATES URINE POSITIVE (NEGATIVE); PHENCYCLIDINE URINE NEGATIVE (NEGATIVE)
[2020-03-24 08:52] LABS: APPEARANCE, URINE CLEAR (CLEAR); BACTERIA, URINE AUTO NEGATIVE (NEGATIVE); BILIRUBIN, URINE AUTO NEGATIVE (NEGATIVE); BLOOD, URINE BLOOD 1+ (NEGATIVE); COLOR, URINE STRAW (YELLOW); GLUCOSE, URINE (UA) AUTO NEGATIVE (NEGATIVE); KETONE, URINE AUTO NEGATIVE (NEGATIVE); LEUKOCYTE ESTERASE, URINE AUTO NEGATIVE (NEGATIVE); NITRITE, URINE AUTO NEGATIVE (NEGATIVE); PROTEIN, URINE AUTO NEGATIVE (NEGATIVE); RBC, URINE AUTO 2 /HPF (0-3); SPECIFIC GRAVITY URINE AUTO 1.003 (1.002-1.035); SQUAMOUS EPITHELIAL CELL UR AU 0 /HPF (0-6); UROBILINOGEN, URINE AUTO 0.2 mg/dL (0.0-2.0); WBC, URINE AUTO 0 /HPF (0-3)
--- NOTE | 2020-03-24 09:12 | REP ---
INDICATION: confusion. COMPARISON: Comparison CT study of the brain is from 29 February 2020.. TECHNIQUE: Helical scanning is acquired. 5 mm axial images were reformatted. Coronal MPR images were generated. FINDINGS: Bone window settings demonstrate an intact bony calvarium. There is no evidence of skull fracture or incidental bony calvarial lesion. The visualized paranasal sinuses appear clear. No intraorbital abnormality is seen. On soft tissue window setting images; the lateral, third, and fourth ventricles are normal in size and position. Cornejo-white differentiation pattern is normal above and below the tentorium. There are is no evidence of intracranial hemorrhage. No mass, edema, infarction, or midline shift is seen. No extra-axial fluid collection is appreciated. Vascular calcification and minimal generalized volume loss are again noted. IMPRESSION: No acute intracranial abnormality.. <Electronically signed by Romeo Nichols > 03/24/20 09
[2020-03-24 09:34] VITALS: BP 115/75
--- NOTE | 2020-03-24 09:40 | ECGEPIP ---
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
== END 2020-03-24 09:57 | disposition home or self-care (01) ==
LOC: M ED 05:02
DX: R11.2 Nausea with vomiting, unspecified (principal); G47.00 Insomnia, unspecified; F41.0 Panic disorder [episodic paroxysmal anxiety]; R00.0 Tachycardia, unspecified; I45.10 Unspecified right bundle-branch block; M79.602 Pain in left arm; M54.9 Dorsalgia, unspecified; I10 Essential (primary) hypertension; E78.5 Hyperlipidemia, unspecified; K21.9 Gastro-esophageal reflux disease without esophagitis; J44.9 Chronic obstructive pulmonary disease, unspecified; F29 Unspecified psychosis not due to a substance or known physiological condition; F20.9 Schizophrenia, unspecified; F17.200 Nicotine dependence, unspecified, uncomplicated; Z88.1 Allergy status to other antibiotic agents; Z79.51 Long term (current) use of inhaled steroids; Z79.82 Long term (current) use of aspirin; Z79.899 Other long term (current) drug therapy
CPT/HCPCS: 36415; 70450; 71046; 80047; 80076; 80143; 80307; 81001; 82077; 82140; 82550; 82553; 83690; 84443; 84484; 85025; 93005; 96361; 96374; 99284; J2060

== ENCOUNTER 2020-04-06 02:09 | Emergency (ER) | payer MEDICARE ==
[~2020-04-06] VITALS: Ht 175.3 cm; Wt 64.4 kg
[2020-04-06 02:10] VITALS: BP 134/97
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
--- OUTSIDE RECORDS SUMMARY | 2020-04-06 02:20 | CCD ---
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 Role Phone Jakub BOWIE MD Unavailable [...] JUDGE MD Unavailable Unavailable MANJARREZ, R PATRICK MEDICAL CLAIMS ASSISTANT Unavailable Unavailable MANJARREZ, R PATRICK MEDICAL CLAIMS ASSISTANT Unavailable Unavailable AMNJARREZ, R PATRICK MEDICAL CLAIMS ASSISTANT Unavailable Unavailable MANJARREZ, R PATRICK MEDICAL CLAIMS ASSISTANT Unavailable Unavailable MANJARREZ, R PATRICK MEDICAL CLAIMS ASSISTANT Unavailable Unavailable MANJARREZ, R PATRICK MEDICAL CLAIMS ASSISTANT Unavailable Unavailable MANJARREZ, R PATRICK MEDICAL CLAIMS ASSISTANT Unavailable Unavailable MANJARREZ, R PATRICK MEDICAL CLAIMS ASSISTANT Unavailable Unavailable MANJARREZ, R PATRICK MEDICAL CLAIMS ASSISTANT Unavailable Unavailable MANJARREZ, R PATRICK MEDICAL CLAIMS ASSISTANT Unavailable Unavailable MANJARREZ, R PATRICK MEDICAL CLAIMS ASSISTANT Unavailable Unavailable MANJARREZ, R PATRICK MEDICAL CLAIMS ASSISTANT Unavailable Unavailable MANJARREZ, R PATRICK MEDICAL CLAIMS ASSISTANT Unavailable Unavailable MANJARREZ, R PATRICK MEDICAL CLAIMS ASSISTANT Unavailable Unavailable MANJARREZ, R PATRICK MEDICAL CLAIMS ASSISTANT Unavailable Unavailable MANJARREZ, R PATRICK MEDICAL CLAIMS ASSISTANT Unavailable Unavailable MANJARREZ, R PATRICK MEDICAL CLAIMS ASSISTANT Unavailable Unavailable MANJARREZ, R PATRICK MEDICAL CLAIMS ASSISTANT Unavailable Unavailable MANJARREZ, R PATRICK MEDICAL CLAIMS ASSISTANT Unavailable Unavailable MANJARREZ, R PATRICK MEDICAL CLAIMS ASSISTANT Unavailable Unavailable MANJARREZ, R PATRICK MEDICAL CLAIMS ASSISTANT Unavailable Unavailable MANJARREZ, R PATRICK MEDICAL CLAIMS ASSISTANT Unavailable Unavailable MANJARREZ, R PATRICK MEDICAL CLAIMS ASSISTANT Unavailable Unavailable MANJARREZ, R PATRICK MEDICAL CLAIMS ASSISTANT Unavailable Unavailable MANJARREZ, R PATRICK MEDICAL CLAIMS ASSISTANT Unavailable Unavailable MANJARREZ, R PATRICK MEDICAL CLAIMS ASSISTANT Unavailable Unavailable MANJARREZ, R PATRICK MEDICAL CLAIMS ASSISTANT Unavailable Unavailable MANJARREZ, R PATRICK MEDICAL CLAIMS ASSISTANT Unavailable Unavailable MANJARREZ, R PATRICK MEDICAL CLAIMS ASSISTANT Unavailable Unavailable MANJARREZ, R PATRICK MEDICAL CLAIMS ASSISTANT Unavailable Unavailable MANJARREZ, R PATRICK MEDICAL CLAIMS ASSISTANT Unavailable Unavailable MANJARREZ, R PATRICK MEDICAL CLAIMS ASSISTANT Unavailable Unavailable MANJARREZ, R PATRICK MEDICAL CLAIMS ASSISTANT Unavailable Unavailable MANJARREZ, R PATRICK MEDICAL CLAIMS ASSISTANT Unavailable Unavailable MANJARREZ, R PATRICK MEDICAL CLAIMS ASSISTANT Unavailable Unavailable MANJARREZ, R PATRICK MEDICAL CLAIMS ASSISTANT Unavailable Unavailable MANJARREZ, R PATRICK MEDICAL CLAIMS ASSISTANT Unavailable Unavailable MANJARREZ, R PATRICK MEDICAL CLAIMS ASSISTANT Unavailable Unavailable MANJARREZ, R PATRICK MEDICAL CLAIMS ASSISTANT Unavailable Unavailable MANJARREZ, R PATRICK MEDICAL CLAIMS ASSISTANT Unavailable Unavailable MANJARREZ, R PATRICK MEDICAL CLAIMS ASSISTANT Unavailable Unavailable Poe, M Brigid MEDICAL CLAIMS ASSISTANT Unavailable Unavailable Poe, M Brigid MEDICAL CLAIMS ASSISTANT Unavailable Unavailable Poe, M Brigid MEDICAL CLAIMS ASSISTANT Unavailable Unavailable Poe, M Brigid MEDICAL CLAIMS ASSISTANT Unavailable Unavailable Poe, M Brigid MEDICAL CLAIMS ASSISTANT Unavailable Unavailable Poe, M Brigid MEDICAL CLAIMS ASSISTANT Unavailable Unavailable Poe, M Brigid MEDICAL CLAIMS ASSISTANT Unavailable Unavailable Poe, M Brigid MEDICAL CLAIMS ASSISTANT Unavailable Unavailable Poe, M Brigid MEDICAL CLAIMS ASSISTANT Unavailable Unavailable Poe, M Brigid MEDICAL CLAIMS ASSISTANT Unavailable Unavailable Poe, M Brigid MEDICAL CLAIMS ASSISTANT Unavailable Unavailable Poe, M Brigid MEDICAL CLAIMS ASSISTANT Unavailable Unavailable Poe, M Brigid MEDICAL CLAIMS ASSISTANT Unavailable Unavailable Poe, M Brigid MEDICAL CLAIMS ASSISTANT Unavailable Unavailable Poe, M Rbigid MEDICAL CLAIMS ASSISTANT Unavailable Unavailable Poe, M Brigid MEDICAL CLAIMS ASSISTANT Unavailable Unavailable Poe, M Brigid MEDICAL CLAIMS ASSISTANT Unavailable Unavailable Poe, M Brigid MEDICAL CLAIMS ASSISTANT Unavailable Unavailable Poe, M Brigid MEDICAL CLAIMS ASSISTANT Unavailable Unavailable Poe, M Brigid MEDICAL CLAIMS ASSISTANT Unavailable Unavailable Poe, M Brigid MEDICAL CLAIMS ASSISTANT Unavailable Unavailable Poe, M Brigid MEDICAL CLAIMS ASSISTANT Unavailable Unavailable Poe, M Brigid MEDICAL CLAIMS ASSISTANT Unavailable Unavailable Poe, M Brigid MEDICAL CLAIMS ASSISTANT Unavailable Unavailable Poe, M Brigid MEDICAL CLAIMS ASSISTANT Unavailable Unavailable Poe, M Brigid MEDICAL CLAIMS ASSISTANT Unavailable Unavailable Poe, M Brigid MEDICAL CLAIMS ASSISTANT Unavailable Unavailable Poe, M Brigid MEDICAL CLAIMS ASSISTANT Unavailable Unavailable Poe, M Brigid MEDICAL CLAIMS ASSISTANT Unavailable Unavailable Poe, M Brigid MEDICAL CLAIMS ASSISTANT Unavailable Unavailable Brooklyn Huber MD Unavailable Unavailable [...] is protected by Article 27-F of the [facility] Public Health law. If you continue you may have access to information: Regarding HIV / AIDS; Provided by facilities licensed or operated by the [facility] Office of Mental Health; or Provided by the [facility] Office for People With Developmental Disabilities. If such information is present, then the following [facility] mandated warning applies: This information has [...] law may result in a fine or assisted sentence or both. A general authorization for the release of medical or other information is NOT sufficient authorization for further disc losure. Allergies and Adverse Reactions Type Description Substance Reaction Status Data Source(s ) Drug allergy Dexamethasone Dexamethasone erythema Active eCW1 ( [facility]) Drug allergy Penicillin (For Allergies Use Only) Drug allergy told as a child to not take Active eCW1 ([facility]) Family History Family Member Name Family Member Gender Family Member Status Date o f Status Description Data Source(s) Unknown Male Problem MEDENT ([facility] ) Unknown Unknown Problem MEDENT ([facility], ) Unknown Unknown Problem MEDENT ([facility], ) Unknown Unknown Problem MEDENT ([facility], ) Unknown Unknown Problem MEDENT ([facility]) Encounters Encounter Providers Location Date Indications Data Source(s ) Unknown [address] [facility] [address] 03/16/2020 12:00:00 AM EST eCW1 ([facility]) Outpatient Attender: NU BOWIE MD 03/10/2020 12:00:00 A M [facility] Unknown [address] [facility] [place] [address] 03/04/2020 12:00:00 AM EST eCW1 ([facility]) Unknown [address] [facility] [address] 03/02/2020 12:00:00 AM EST eCW1 ([facility]) Unknown [address] [facility] [place] [address] 02/23/2020 12:00:00 AM EST eCW1 ([facility]) Unknown [address] [facility] [place] [address] 02/23/2020 12:00:00 AM EST eCW1 ([facility]) Unknown [address] [facility] [address] 02/23/2020 12:00:00 AM EST [facility]CW1 ([facility]) Unknown [address] [facility] [address] 02/08/2020 12:00:00 AM EST eCW1 ([facility]) TeleMedicine Phone E/M by Phys 21-30 Min [address] [place] [address] 01/28/2020 12:00:00 AM EST eCW1 ([facility]) Outpatient Attender: NU BOWIE MD 01/28/2020 12:00:00 A M [facility] Unknown [address] [facility] [address] 01/27/2020 12:00:00 AM EST eCW1 ([facility]) Unknown [address] [facility] [address] 01/27/2020 12:00:00 AM EST eCW1 ([facility]) Unknown [address] [facility] [address] 01/27/2020 12:00:00 AM EST eCW1 ([facility]) Unknown [address] [facility] Y [address] 01/26/2020 12:00:00 AM EST [facility] Unknown [address] [facility] [address] 01/25/2020 12:00:00 AM EST eCW1 ([facility]) Unknown [address] [facility] [address] 01/22/2020 12:00:00 AM EST eCW1 ([facility]) Unknown [address] [facility] Y [address] 01/20/2020 12:00:00 AM EST eCW1 ([facility]) Unknown [address] [facility] Y [address] 01/20/2020 12:00:00 AM EST eCW1 ([facility]) ([facility]) [facility] Scheduled Visit [address] [place] [address] 01/19/2020 12:00:00 AM EST eCW1 ([facility]) Unknown [address] [facility] Y [address] 01/19/2020 12:00:00 AM EST eCW1 ([facility]) Unknown [address] [facility] Y [address] 01/18/2020 12:00:00 AM EST eCW1 ([facility]) Unknown [address] [facility] Y [address] 01/18/2020 12:00:00 AM EST eCW1 ([facility]) Outpatient [address] [facility] Y [address] 01/15/2020 12:00:00 AM EST eCW1 ([facility]) Unknown [address] [facility] Y [address] 01/15/2020 12:00:00 AM EST eCW1 ([facility]) Unknown [address] [facility] [place] [address] 01/14/2020 12:00:00 AM EST eCW1 ([facility]) Unknown [address] [facility] Y [address] 01/13/2020 12:00:00 AM EST eCW1 ([facility]) Unknown [address] [facility] [place] [address] 01/13/2020 12:00:00 AM EST eCW1 ([facility]) Unknown [address] [facility] [place] [address] 01/13/2020 12:00:00 AM EST [facility]CW1 [facility] Outpatient Attender: NU BOWIE MD 01/13/2020 12:00:00 A [facility] Unknown [address] [facility] [address] 01/12/2020 12:00:00 AM EST eCW1 [facility] Unknown [address] [facility] Y [address] 01/12/2020 12:00:00 AM EST eCW1 ([facility]) Unknown [address] [facility] [address] 01/12/2020 12:00:00 AM EST eCW1 ([facility]) Unknown [address] [facility] [address] 01/11/2020 12:00:00 AM EST eCW1 ([facility]) Unknown [address] [facility] [address] 01/10/2020 12:00:00 AM EST eCW1 ([facility]) Unknown [address] [facility] [address] 01/05/2020 12:00:00 AM EST eCW1 ([facility]) Unknown [address] [facility] [address] 01/04/2020 12:00:00 AM EST eCW1 ([facility]) Unknown [address] [facility] [address] 01/02/2020 12:00:00 AM EST eCW1 ([facility]) Unknown [address] [facility] [address] 01/01/2020 12:00:00 AM EST eCW1 ([facility]) Unknown [address] [facility] [address] 12/31/2019 12:00:00 AM EST eCW1 ([facility]) Unknown [address] [facility] [address] 12/29/2019 12:00:00 AM EST eCW1 ([facility]) Unknown [address] [facility] [address] 12/28/2019 12:00:00 AM EST eCW1 ([facility]) Unknown [address] [facility] [address] 12/25/2019 12:00:00 AM EST eCW1 ([facility]) Outpatient [address] [facility] [address] 12/24/2019 12:00:00 AM EST eCW1 ([facility]) Unknown [address] [facility] [address] 12/24/2019 12:00:00 AM EST eCW1 ([facility]) Unknown [address] [facility] [address] 12/24/2019 12:00:00 AM EST eCW1 ([facility]) Unknown [address] [facility] [address] 12/24/2019 12:00:00 AM EST eCW1 ([facility]) Unknown [address] [facility] [place] [address] 12/24/2019 12:00:00 AM EST eCW1 ([facility]) Unknown [address] [facility] [address] 12/23/2019 12:00:00 AM EST eCW1 ([facility]) Unknown [address] [facility] [address] 12/23/2019 12:00:00 AM EST eCW1 ([facility]) Unknown [address] [facility] [address] 12/23/2019 12:00:00 AM EST eCW1 ([facility]) Unknown [address] [facility] [address] 12/22/2019 12:00:00 AM EST eCW1 ([facility]) Unknown [address] [facility] [address] 12/22/2019 12:00:00 AM EST eCW1 ([facility]) Outpatient [address] [facility] [place] [address] 12/22/2019 12:00:00 AM EST eCW1 ([facility]) Unknown [address] [facility] [address] 12/22/2019 12:00:00 AM EST eCW1 ([facility]) Unknown [address] [facility] [address] 12/21/2019 12:00:00 AM EST eCW1 ([facility]) Unknown [address] [facility] [address] 12/20/2019 12:00:00 AM EST eCW1 ([facility]) Unknown [address] [facility] [address] 12/18/2019 12:00:00 AM EST eCW1 ([facility]) Unknown [address] [facility] [address] 12/18/2019 12:00:00 AM EST eCW1 ([facility]) Unknown [address] [facility] [address] 12/18/2019 12:00:00 AM EST eCW1 ([facility]) Unknown [address] [facility] [address] 12/18/2019 12:00:00 AM EST eCW1 ([facility]) Outpatient [address] [facility] [address] 12/17/2019 12:00:00 AM EST eCW1 ([facility]) (PN Proc 45) Pain Procedure 45 [address] [place] [address] 12/11/2019 12:00:00 AM EDT eCW1 [facility]) Unknown [address] [facility] [address] 12/10/2019 12:00:00 AM EDT eCW1 ([facility]) Unknown [address] [facility] Y [address] 12/10/2019 12:00:00 AM EDT eCW1 ([facility]) Unknown [address] [facility] Y [address] 12/09/2019 12:00:00 AM EDT eCW1 ([facility]) Unknown [address] [facility] [address] 12/07/2019 12:00:00 AM EDT eCW1 ([facility]) Unknown [address] [facility], [place] [address] 12/01/2019 12:00:00 AM EDT eCW1 ([facility]) Unknown [address] [facility], [place] [address] 11/30/2019 12:00:00 AM EDT eCW1 ([facility]) Outpatient [address] [facility] Y [address] 11/30/2019 12:00:00 AM EDT eCW1 ([facility]) Unknown [address] [facility] Y [address] 11/29/2019 12:00:00 AM EDT eCW1 ([facility]) Outpatient [address] [facility] Y [address] 11/24/2019 12:00:00 AM EDT eCW1 ([facility]) Unknown [address] [facility] Y [address] 11/17/2019 12:00:00 AM EDT eCW1 ([facility]) (PN Proc 45) Pain Procedure 45 [address] [place] [address] 11/12/2019 12:00:00 AM EDT eCW1 ([facility] Unknown [address] [facility], [place] [address] 11/10/2019 12:00:00 AM EDT eCW1 ([facility]) Unknown [address] [facility], [place] [address] 11/03/2019 12:00:00 AM EDT eCW1 ([facility]) Unknown [address] [facility] Y [address] 11/03/2019 12:00:00 AM EDT eCW1 ([facility]) Unknown [address] [facility] Y [address] 11/03/2019 12:00:00 AM EDT eCW1 ([facility]) Unknown [address] [facility] Y [address] 11/03/2019 12:00:00 AM EDT eCW1 ([facility]) Unknown [address] [facility], [place] [address] 11/03/2019 12:00:00 AM EDT eCW1 ([facility]) Unknown [address] [facility], [place] [address] 11/03/2019 12:00:00 AM EDT eCW1 ([facility]) [facility] [address] [facility] Y [address] 10/09/2019 12:00:00 AM EDT eCW1 ([facility]) Outpatient Attender: Brooklyn Huber MD Main office - [place] 09/28/2019 03:10:00 PM EDT MEDENT ([facility] ) Outpatient Attender: Brooklyn Huber MD Main office - [place] 09/22/2019 11:30:00 AM EDT MEDENT ([facility] ) [facility] [address] [place] [address] 09/14/2019 12:00:00 AM EDT eCW1 ([facility]) Outpatient [address] [facility], [place] [address] 09/04/2019 12:00:00 AM EDT eCW1 ([facility]) Unknown [address] [facility] [address] 09/03/2019 12:00:00 AM EDT eCW1 ([facility]) Unknown [address] [facility] [address] 09/01/2019 12:00:00 AM EDT eCW1 ([facility]) Outpatient [address] [facility] Y [address] 08/31/2019 12:00:00 AM EDT eCW1 ([facility]) Unknown [address] [facility] Y [address] 08/28/2019 12:00:00 AM EDT eCW1 ([facility]) Unknown [address] [facility] [address] 08/27/2019 12:00:00 AM EDT eCW1 ([facility]) Unknown [address] [facility] [address] 08/27/2019 12:00:00 AM EDT eCW1 ([facility]) Unknown [address] [facility] [address] 08/26/2019 12:00:00 AM EDT eCW1 ([facility]) Outpatient [address] [facility] [address] 08/25/2019 12:00:00 AM EDT eCW1 ([facility]) Outpatient Attender: PATRICK MANJARREZ NP 08/25/2019 12:00:0 0 AM [facility] Unknown [address] [facility] [address] 08/19/2019 12:00:00 AM EDT eCW1 ([facility]) Outpatient Referrer: Brigid Poe NP 08/13/2019 05:20:00 AM EDT [facility] Radiology Imaging Office Visit, Est Pt., Level 3 PC [address] [place] [address] 08/13/2019 12:00:00 AM EDT eCW1 ([facility]) Outpatient [address] [facility] [address] 08/04/2019 12:00:00 AM EDT eCW1 ([facility]) Unknown [address] [facility] [address] 08/03/2019 12:00:00 AM EDT eCW1 ([facility]) [facility] [address] [place] [address] 07/30/2019 12:00:00 AM EDT eCW1 ([facility] Outpatient Referrer: Brigid Poe NP 07/29/2019 05:54:00 AM EDT [facility] [address] [place] [address] 07/29/2019 12:00:00 AM EDT eCW1 ([facility]) Unknown [address] [facility], [place] [address] 07/28/2019 12:00:00 AM EDT eCW1 ([facility]) Unknown [address] [facility], [place] [address] 07/24/2019 12:00:00 AM EDT eCW1 ([facility]) Unknown [address] [facility], [place] [address] 07/22/2019 12:00:00 AM EDT eCW1 ([facility]) Outpatient [address] [facility], [place] [address] 07/14/2019 12:00:00 AM EDT eCW1 ([facility]) TeleMedicine Phone E/M by Zeina 11-[address] [place] [address] 07/13/2019 12:00:00 AM EDT eCW1 ([facility]) [facility] [address] [place] [address] 07/13/2019 12:00:00 AM EDT eCW1 ([facility]) [facility] [address] [place] [address] 07/07/2019 12:00:00 AM EDT eCW1 ([facility]) [facility] [address] [facility] Y [address] 06/25/2019 12:00:00 AM EDT eCW1 [facility] [address] [place] [address] 06/24/2019 12:00:00 AM EDT eCW1 ([facility]) [facility] [address] [place] [address] 06/16/2019 12:00:00 AM EDT eCW1 ([facility]) [facility] [address] [place] [address] 06/12/2019 12:00:00 AM EDT eCW1 ([facility]) [facility] [address] [place] [address] 06/03/2019 12:00:00 AM EDT eCW1 ([facility]) [facility] [address] [place] [address] 06/03/2019 12:00:00 AM EDT eCW1 ([facility]) Outpatient Attender: NU BOWIE MD 06/03/2019 12:00:00 A M [facility] [address] [place] [address] 05/28/2019 12:00:00 AM EDT eCW1 ([facility]) [facility] [address] [place] [address] 05/27/2019 12:00:00 AM EDT eCW1 ([facility]) [facility] [address] [place] [address] 05/27/2019 12:00:00 AM EDT eCW1 ([facility]) [address] [address] 05/22/2019 12:00:00 AM EDT eCW1 ([facility]) [facility] [address] [place] [address] 05/21/2019 12:00:00 AM EDT eCW1 ([facility]) [address] [address] 05/20/2019 12:00:00 AM EDT eCW1 ([facility]) [facility] [address] [place] [address] 05/18/2019 12:00:00 AM EDT eCW1 ([facility]) [facility] Dermatology [address] [place] [address] 05/15/2019 12:00:00 AM EDT eCW1 ([facility]) [facility] [address] [place] [phone] 05/12/2019 12:00:00 AM EDT eCW1 ([facility]) [facility] [address] [place] [address] 05/12/2019 12:00:00 AM EDT eCW1 ([facility]) [facility] [address] [facility] [address] 05/08/2019 12:00:00 AM EDT eCW1 ([facility]) [facility] [address] [place] [address] 05/05/2019 12:00:00 AM EDT eCW1 ([facility]) [facility] [address] [place] [address] 05/01/2019 12:00:00 AM EDT eCW1 ([facility]) [facility] [address] [place] [address] 04/30/2019 12:00:00 AM EDT eCW1 ([facility]) [facility] [address] [place] [address] 04/30/2019 12:00:00 AM EDT eCW1 ([facility]) [facility] [address] [place] [address] 04/21/2019 12:00:00 AM EDT eCW1 ([facility]) [facility] [facility] [address] [place] [phone] 04/16/2019 12:00:00 AM EST eCW1 ([facility]) [facility] [address] [place] [phone] 04/15/2019 12:00:00 AM EST eCW1 ([facility]) [facility] [address] [place] [phone] 04/14/2019 12:00:00 AM EST eCW1 ([facility]) [facility] [address] [place] [phone] 04/09/2019 12:00:00 AM EST eCW1 ([facility]) [facility] [address] [place] [phone] 04/08/2019 12:00:00 AM EST eCW1 ([facility]) Outpatient Referrer: Brigid Poe NP 04/07/2019 08:15:00 AM EST [facility] [address] [place] [phone] 04/07/2019 12:00:00 AM EST eCW1 ([facility] [address] [phone] 04/06/2019 12:00:00 AM EST eCW1 ([facility]) [facility] [address] [place] [phone] 04/02/2019 12:00:00 AM EST eCW1 ([facility]) Outpatient Attender: NU BOWIE MD [id number] 2019 12:00:00 AM EST - 04/20/2019 07:15:28 AM EDT Lesion of ulnar nerve, right upper limb [facility] Lesion of ulnar nerve, right upper limb [facility] [place] [address] [place] [phone] 03/31/2019 12:00:00 AM EST eCW1 ([facility]) [facility] [address] [place] [phone] 03/27/2019 12:00:00 AM EST eCW1 ([facility]) [facility] [address] [place] [phone] 03/26/2019 12:00:00 AM EST eCW1 ([facility]) [facility] [address] [place] [phone] 03/26/2019 12:00:00 AM EST eCW1 ([facility]) [facility] [address] [place] [phone] 03/25/2019 12:00:00 AM EST eCW1 ([facility]) [facility] [address] [place] [phone] 03/25/2019 12:00:00 AM EST eCW1 ([facility]) [facility] [address] [place] [phone] 03/23/2019 12:00:00 AM EST eCW1 ([facility]) [facility] [address] [place] [phone] 03/10/2019 12:00:00 AM EST eCW1 ([facility]) Outpatient Attender: NU BOWIE MD 03/05/2019 12:00:00 A [facility] [address] [place] [phone] 03/02/2019 12:00:00 AM EST eCW1 ([facility]) [facility] [address] [place] [phone] 02/27/2019 12:00:00 AM EST eCW1 ([facility]) [facility] [address] [place] [phone] 02/24/2019 12:00:00 AM EST eCW1 ([facility]) [facility] [address] [place] [phone] 02/23/2019 12:00:00 AM EST eCW1 ([facility]) [facility] [address] [place] [phone] 02/16/2019 12:00:00 AM EST eCW1 ([facility]) [facility] [address] [place] [phone] 02/13/2019 12:00:00 AM EST eCW1 ([facility]) [facility] [address] [place] [phone] 02/13/2019 12:00:00 AM EST eCW1 ([facility]) [facility] [address] [place] [phone] 02/12/2019 12:00:00 AM EST eCW1 ([facility]) Immunizations Vaccine Date Status Description Data Source(s) influenza, recombinant, quadrIvalent,injectable, prese rvative free 01/15/2020 10:57:00 AM EST completed eCW1 ([facility]) influenza, recombinant, quadrIvalent,injectable, prese rvative free 01/15/2020 10:57:00 AM EST completed eCW1 ([facility]) influenza, recombinant, quadrIvalent,injectable, prese rvative free 01/15/2020 10:57:00 AM EST completed eCW1 ([facility]) influenza, recombinant, quadrIvalent,injectable, prese rvative free 01/15/2020 10:57:00 AM EST completed eCW1 ([facility]) influenza, recombinant, quadrIvalent,injectable, prese rvative free 01/15/2020 10:57:00 AM EST completed eCW1 ([facility]) influenza, recombinant, quadrIvalent,injectable, prese rvative free 01/15/2020 10:57:00 AM EST completed eCW1 ([facility]) influenza, recombinant, quadrIvalent,injectable, prese rvative free 01/15/2020 10:57:00 AM EST completed eCW1 ([facility]) influenza, recombinant, quadrIvalent,injectable, prese rvative free 01/15/2020 10:57:00 AM EST completed eCW1 ([facility]) influenza, recombinant, quadrIvalent,injectable, prese rvative free 01/15/2020 10:57:00 AM EST completed eCW1 ([facility]) influenza, recombinant, quadrIvalent,injectable, prese rvative free 01/15/2020 10:57:00 AM EST completed eCW1 ([facility]) influenza, recombinant, quadrIvalent,injectable, prese rvative free 01/15/2020 10:57:00 AM EST completed eCW1 ([facility]) influenza, recombinant, quadrIvalent,injectable, prese rvative free 01/15/2020 10:57:00 AM EST completed eCW1 ([facility]) influenza, recombinant, quadrIvalent,injectable, prese rvative free 01/15/2020 10:57:00 AM EST completed eCW1 ([facility]) influenza, recombinant, quadrIvalent,injectable, prese rvative free 01/15/2020 10:57:00 AM EST completed eCW1 ([facility]) influenza, recombinant, quadrIvalent,injectable, prese rvative free 01/15/2020 10:57:00 AM EST completed eCW1 ([facility]) influenza, recombinant, quadrIvalent,injectable, prese rvative free 01/15/2020 10:57:00 AM EST completed eCW1 ([facility]) influenza, recombinant, quadrIvalent,injectable, prese rvative free 01/15/2020 10:57:00 AM EST completed eCW1 ([facility]) influenza, recombinant, quadrIvalent,injectable, prese rvative free 01/15/2020 10:57:00 AM EST completed eCW1 ([facility]) influenza, recombinant, quadrIvalent,injectable, prese rvative free 01/15/2020 10:57:00 AM EST completed eCW1 ([facility]) influenza, recombinant, quadrIvalent,injectable, prese rvative free 01/15/2020 10:57:00 AM EST completed eCW1 ([facility]) influenza, recombinant, quadrIvalent,injectable, prese rvative free 01/15/2020 10:57:00 AM EST completed eCW1 ([facility]) influenza, recombinant, quadrIvalent,injectable, prese rvative free 01/15/2020 10:57:00 AM EST completed eCW1 ([facility]) influenza, recombinant, quadrIvalent,injectable, prese rvative free 01/15/2020 10:57:00 AM EST completed eCW1 ([facility]) influenza, recombinant, quadrIvalent,injectable, prese rvative free 01/15/2020 10:57:00 AM EST completed eCW1 ([facility]) influenza, recombinant, quadrIvalent,injectable, prese rvative free 01/15/2020 10:57:00 AM EST completed eCW1 ([facility]) influenza, recombinant, quadrIvalent,injectable, prese rvative free 01/15/2020 10:57:00 AM EST completed eCW1 ([facility]) Medications Medication Brand Name Start Date Product Form Dose Route Admi nistrative Instructions Pharmacy Instructions Status Indications Reaction Description Data Source(s) 20 mg 03/23/2020 12:00:00 AM EST tablet 90 TAKE ONE TABLET BY MOUTH THREE TIMES A DAY TAKE ONE TABLET BY MOUTH THREE TIMES A DAY SOLD: 03/23/2020 [facility] olanzapine 7.5 MG Oral Tablet OLANZAPINE 03/08/2020 12:00:00 AM EST ta blet 7 TAKE ONE TABLET BY MOUTH AT BEDTIME FOR PSYCHOSIS TAKE ONE TABLET BY MOUTH AT BEDTIME FOR PSYCHOSIS SOLD: 03/08/2020 [facility] olanzapine 7.5 MG Oral Tablet OLANZAPINE 03/08/2020 12:00:00 AM EST ta blet 7 TAKE ONE TABLET BY MOUTH AT BEDTIME FOR PSYCHOSIS TAKE ONE TABLET BY MOUTH AT BEDTIME FOR PSYCHOSIS SOLD: 03/15/2020 [facility] 2 mg 03/07/2020 12:00:00 AM EST tablet 4 TAKE ONE HALF TABLET BY MOUTH DAILY MAXIMUM DAILY DOSE = ONE HALF TABLET TAKE ONE HALF TABLET BY MOUTH DAILY MAXI MUM DAILY DOSE = ONE HALF TABLET SOLD: 03/07/2020 [facility] 50 mg 03/07/2020 12:00:00 AM EST tablet 14 TAKE TWO TABLET BY MOUTH AT BEDTIME FOR MOOD/SLEEP TAKE TWO TABLET BY MOUTH AT BEDTIME FOR MOOD/SLEEP NEIL [facility] 50 mg 03/07/2020 12:00:00 AM EST tablet 14 TAKE TWO TABLET BY MOUTH AT BEDTIME FOR MOOD/SLEEP TAKE TWO TABLET BY MOUTH AT BEDTIME FOR MOOD/SLEEP NEIL [facility] olanzapine 10 MG Oral Tablet OLANZAPINE 03/07/2020 12:00:00 AM EST tab let 7 TAKE ONE TABLET BY MOUTH AT BEDTIME FOR PSYCHOSIS TAKE ONE TABLET BY MOUTH AT BEDTIME FOR PSYCHOSIS SOLD: 03/07/2020 [facility] olanzapine 10 MG Oral Tablet OLANZAPINE 03/07/2020 12:00:00 AM EST tab let 7 TAKE ONE TABLET BY MOUTH AT BEDTIME FOR PSYCHOSIS TAKE ONE TABLET BY MOUTH AT BEDTIME FOR PSYCHOSIS SOLD: 03/13/2020 [facility] Amitriptyline Hydrochloride 25 MG Oral Tablet AMITRIPTYLINE HCL 03/07/2020 12:00:00 AM EST tablet 7 TAKE ONE TABLET BY MOUTH AT BEDTIME FOR MOOD/SLEEP TAKE ONE TABLET BY MOUTH AT BEDTIME FOR MOOD/SLEEP SOLD: 03/07/2020 [facility] buspirone hydrochloride 10 MG Oral Tablet BUSPIRONE HCL 03/07/2020 12:00:00 AM EST tablet 14 TAKE ONE TABLET BY MOUTH TWI CE A DAY FOR ANXIETY TAKE ONE TABLET BY MOUTH TWICE A DAY FOR ANXIETY SOLD: 04/04/2020 [facility] buspirone hydrochloride 10 MG Oral Tablet BUSPIRONE HCL 03/07/2020 12:00:00 AM EST tablet 14 TAKE ONE TABLET BY MOUTH TWI CE A DAY FOR ANXIETY TAKE ONE TABLET BY MOUTH TWICE A DAY FOR ANXIETY SOLD: 03/30/2020 [facility] buspirone hydrochloride 10 MG Oral Tablet BUSPIRONE HCL 03/07/2020 12:00:00 AM EST tablet 14 TAKE ONE TABLET BY MOUTH TWI CE A DAY FOR ANXIETY TAKE ONE TABLET BY MOUTH TWICE A DAY FOR ANXIETY SOLD: 03/18/2020 [facility] buspirone hydrochloride 10 MG Oral Tablet [...] TWICE A DAY FOR ANXIETY SOLD: 03/07/2020 [facility] 5 mg 03/07/2020 12:00:00 AM EST [...] BEDTIME FOR MOOD/SLEEP SOLD: 03/16/2020 [facility] Amitriptyline Hydrochloride 25 MG Oral Tablet AMITRIPTYLINE HCL 03/07/2020 12:00:00 AM EST tablet 7 TAKE ONE TABLET BY MOUTH AT BEDTIME FOR MOOD/SLEEP TAKE ONE TABLET BY MOUTH AT BEDTIME FOR MOOD/SLEEP SOLD: 03/30/2020 [facility] 300 mg 03/01/2020 12:00:00 AM EST capsule 60 TAKE TWO CAPSULES BY MOUTH EVERY DAY IN THE EVENING USE DIRECTED TAKE TWO CAPSULES BY MOUTH EVERY DAY IN THE EVENING USE DIRECTED SOLD: 03/30/2020 [facility] 300 mg 03/01/2020 12:00:00 AM EST capsule 30 TAKE ONE CAPSULE BY MOUTH EVERY DAY IN THE MORNING DIRECTED TAKE ONE CAPSULE BY MOUTH EVERY DAY IN T HE MORNING DIRECTED SOLD: 03/04/2020 [facility] 300 mg 03/01/2020 12:00:00 AM EST capsule 30 TAKE ONE CAPSULE BY MOUTH EVERY DAY IN THE MORNING DIRECTED TAKE ONE CAPSULE BY MOUTH EVERY DAY IN T HE MORNING DIRECTED SOLD: 03/16/2020 [facility] 300 mg 03/01/2020 12:00:00 AM [...] SHOULD LAST 30 DAYS SOLD: 02/24/2020 [facility] Amitriptyline Hydrochloride 25 MG Oral Tablet AMITRIPTYLINE HCL 02/24/2020 12:00:00 AM EST tablet 150 TAKE 5 TABLETS BY MOUTH O NCE A DAY TAKE 5 TABLETS BY MOUTH ONCE A DAY SOLD: 03/25/2020 [facility] 15 mg 02/24/2020 12:00:00 AM EST tablet [...] {tablet_as_needed} active Percocet 10-3 25 MG eCW1 ([facility]) Acetaminophen 325 MG / Oxycodone Hydroch loride 10 MG Oral Tablet [Percocet] Percocet 10-325 MG Percocet 10-325 MG 02/23/2020 12:00:00 AM EST 1.0 {tablet_as_needed} active Percocet 10-3 25 MG eCW1 ([facility]) Morphine Sulfate 15 MG Oral Tablet Morphine Sulfate 15 MG 12:00:00 AM EST 1.0 {tablet_as_needed} active M orphine Sulfate 15 MG eCW1 ([facility]) Acetaminophen 325 MG / Oxycodone Hydroch loride 10 MG Oral Tablet [Percocet] Percocet 10-325 MG Percocet 10-325 MG 02/23/2020 12:00:00 AM EST 1.0 {tablet_as_needed} active Percocet 10-3 25 MG eCW1 ([facility]) Morphine Sulfate 15 MG Oral Tablet Morphine Sulfate 15 MG 12:00:00 AM EST 1.0 {tablet_as_needed} active M orphine Sulfate 15 MG eCW1 ([facility]) Acetaminophen 325 MG / Oxycodone Hydroch loride 10 MG Oral Tablet [Percocet] Percocet 10-325 MG Percocet 10-325 MG 02/23/2020 12:00:00 AM EST 1.0 {tablet_as_needed} active Percocet 10-3 25 MG eCW1 ([facility]) Morphine Sulfate 15 MG Oral Tablet Morphine Sulfate 15 MG 12:00:00 AM EST 1.0 {tablet_as_needed} active M orphine Sulfate 15 MG eCW1 ([facility]) Morphine Sulfate 15 MG Oral Tablet Morphine Sulfate 15 MG 12:00:00 AM EST 1.0 {tablet_as_needed} active M orphine Sulfate 15 MG eCW1 ([facility]) Morphine Sulfate 15 MG Oral Tablet Morphine Sulfate 15 MG 12:00:00 AM EST 1.0 {tablet_as_needed} active M orphine Sulfate 15 MG eCW1 ([facility]) Acetaminophen 325 MG / Oxycodone Hydroch loride 10 MG Oral Tablet [Percocet] Percocet 10-325 MG Percocet 10-325 MG 02/23/2020 12:00:00 AM EST 1.0 {tablet_as_needed} active Percocet 10-3 25 MG eCW1 ([facility]) Acetaminophen 325 MG / Oxycodone Hydroch loride 10 MG Oral Tablet [Percocet] Percocet 10-325 MG Percocet 10-325 MG 02/23/2020 12:00:00 AM EST 1.0 {tablet_as_needed} active Percocet 10-3 25 MG eCW1 ([facility]) Morphine Sulfate 15 MG Oral Tablet Morphine Sulfate 15 MG 12:00:00 AM EST 1.0 {tablet_as_needed} active M orphine Sulfate 15 MG eCW1 ([facility]) Budesonide 180 MCG/ACT UNK 02/16/2020 12:00:00 AM EST 1.0 {puff } active Budesonide 180 MCG/ACT eCW1 (Replaced by [facility]) Budesonide 180 MCG/ACT UNK 02/16/2020 12:00:00 AM EST 1.0 {puff } active Budesonide 180 MCG/ACT eCW1 (Replaced by [facility]) Budesonide 180 MCG/ACT UNK 02/16/2020 12:00:00 AM EST 1.0 {puff } active Budesonide 180 MCG/ACT eCW1 (Replaced by [facility]) Budesonide 180 MCG/ACT UNK 02/16/2020 12:00:00 AM EST 1.0 {puff } active Budesonide 180 MCG/ACT eCW1 (Replaced by [facility]) Budesonide 180 MCG/ACT UNK 02/16/2020 12:00:00 AM EST 1.0 {puff } active Budesonide 180 MCG/ACT eCW1 (Replaced by [facility]) Budesonide 180 MCG/ACT UNK 02/16/2020 12:00:00 AM EST 1.0 {puff } active Budesonide 180 MCG/ACT eCW1 (Replaced by [facility]) 2 mg 02/09/2020 12:00:00 AM EST tablet [...] {ml_as_needed} active Ipratropium-Albuterol 0.5-2.5 (3) MG/3ML eCW1 ([facility]) Albuterol 0.833 MG/ML / Ipratropium Brom krish 0.167 MG/ML Inhalant Solution Ipratropium-Albuterol 0.5-2.5 (3) MG/3ML Ipratropium-Albuterol 0.5-2.5 (3) MG/3ML 01/28/2020 12:00:00 AM EST 3.0 {ml_as_needed} active Ipratropium-Albuterol 0.5-2.5 (3) MG/3ML eCW1 ([facility]) Albuterol 0.833 MG/ML / Ipratropium Brom krish 0.167 MG/ML Inhalant Solution Ipratropium-Albuterol 0.5-2.5 (3) MG/3ML Ipratropium-Albuterol 0.5-2.5 (3) MG/3ML 01/28/2020 12:00:00 AM EST 3.0 {ml_as_needed} active Ipratropium-Albuterol 0.5-2.5 (3) MG/3ML eCW1 ([facility]) Albuterol 0.833 MG/ML / Ipratropium Brom krish 0.167 MG/ML Inhalant Solution Ipratropium-Albuterol 0.5-2.5 (3) MG/3ML Ipratropium-Albuterol 0.5-2.5 (3) MG/3ML 01/28/2020 12:00:00 AM EST 3.0 {ml_as_needed} active Ipratropium-Albuterol 0.5-2.5 (3) MG/3ML eCW1 ([facility]) Albuterol 0.833 MG/ML / Ipratropium Brom krish 0.167 MG/ML Inhalant Solution Ipratropium-Albuterol 0.5-2.5 (3) MG/3ML Ipratropium-Albuterol 0.5-2.5 (3) MG/3ML 01/28/2020 12:00:00 AM EST 3.0 {ml_as_needed} active Ipratropium-Albuterol 0.5-2.5 (3) MG/3ML eCW1 ([facility]) Albuterol 0.833 MG/ML / Ipratropium Brom krish 0.167 MG/ML Inhalant Solution Ipratropium-Albuterol 0.5-2.5 (3) MG/3ML Ipratropium-Albuterol 0.5-2.5 (3) MG/3ML 01/28/2020 12:00:00 AM EST 3.0 {ml_as_needed} active Ipratropium-Albuterol 0.5-2.5 (3) MG/3ML eCW1 ([facility]) Albuterol 0.833 MG/ML / Ipratropium Brom krish 0.167 MG/ML Inhalant Solution Ipratropium-Albuterol 0.5-2.5 (3) MG/3ML Ipratropium-Albuterol 0.5-2.5 (3) MG/3ML 01/28/2020 12:00:00 AM EST 3.0 {ml_as_needed} active Ipratropium-Albuterol 0.5-2.5 (3) MG/3ML eCW1 ([facility]) Albuterol 0.833 MG/ML / Ipratropium Brom krish 0.167 MG/ML Inhalant Solution Ipratropium-Albuterol 0.5-2.5 (3) MG/3ML Ipratropium-Albuterol 0.5-2.5 (3) MG/3ML 01/28/2020 12:00:00 AM EST 3.0 {ml_as_needed} active Ipratropium-Albuterol 0.5-2.5 (3) MG/3ML eCW1 ([facility]) Albuterol 0.833 MG/ML / Ipratropium Brom krish 0.167 MG/ML Inhalant Solution Ipratropium-Albuterol 0.5-2.5 (3) MG/3ML Ipratropium-Albuterol 0.5-2.5 (3) MG/3ML 01/28/2020 12:00:00 AM EST 3.0 {ml_as_needed} active Ipratropium-Albuterol 0.5-2.5 (3) MG/3ML eCW1 ([facility]) Albuterol 0.833 MG/ML / Ipratropium Brom krish 0.167 MG/ML Inhalant Solution Ipratropium-Albuterol 0.5-2.5 (3) MG/3ML Ipratropium-Albuterol 0.5-2.5 (3) MG/3ML 01/28/2020 12:00:00 AM EST 3.0 {ml_as_needed} active Ipratropium-Albuterol 0.5-2.5 (3) MG/3ML eCW1 ([facility]) Albuterol 0.833 MG/ML / Ipratropium Brom krish 0.167 MG/ML Inhalant Solution Ipratropium-Albuterol 0.5-2.5 (3) MG/3ML Ipratropium-Albuterol 0.5-2.5 (3) MG/3ML 01/28/2020 12:00:00 AM EST 3.0 {ml_as_needed} active Ipratropium-Albuterol 0.5-2.5 (3) MG/3ML eCW1 ([facility]) Albuterol 0.833 MG/ML / Ipratropium Brom krish 0.167 MG/ML Inhalant Solution Ipratropium-Albuterol 0.5-2.5 (3) MG/3ML Ipratropium-Albuterol 0.5-2.5 (3) MG/3ML 01/28/2020 12:00:00 AM EST 3.0 {ml_as_needed} active Ipratropium-Albuterol 0.5-2.5 (3) MG/3ML eCW1 ([facility]) Morphine Sulfate 15 MG Oral Tablet Morphine Sulfate 15 MG 12:00:00 AM EST 1.0 {tablet_as_needed} active M orphine Sulfate 15 MG eCW1 ([facility]) Morphine Sulfate 15 MG Oral Tablet Morphine Sulfate 15 MG 12:00:00 AM EST 1.0 {tablet_as_needed} active M orphine Sulfate 15 MG eCW1 ([facility]) Morphine Sulfate 15 MG Oral Tablet Morphine Sulfate 15 MG 12:00:00 AM EST 1.0 {tablet_as_needed} active M orphine Sulfate 15 MG eCW1 ([facility]) Morphine Sulfate 15 MG Oral Tablet Morphine Sulfate 15 MG 12:00:00 AM EST 1.0 {tablet_as_needed} active M orphine Sulfate 15 MG eCW1 ([facility]) Morphine Sulfate 15 MG Extended Release Oral Tablet Mo rphine Sulfate ER 15 MG Morphine Sulfate ER 15 MG 01/27/2020 12:00:00 AM EST 1.0 {tablet} active Morphine Sulfate ER 15 MG eCW1 ( [facility]) Morphine Sulfate 15 MG Oral Tablet Morphine Sulfate 15 MG 12:00:00 AM EST 1.0 {tablet_as_needed} active M orphine Sulfate 15 MG eCW1 ([facility]) Morphine Sulfate ER 15 MG UNK 01/27/2020 12:00:00 AM EST 1.0 {tablet} active Morphine Sulfate ER 15 MG eCW1 ( [facility]) Morphine Sulfate ER 15 MG UNK 01/27/2020 12:00:00 AM EST 1.0 {tablet} active Morphine Sulfate ER 15 MG eCW1 ( [facility]) Morphine Sulfate 15 MG Oral Tablet Morphine Sulfate 15 MG 12:00:00 AM EST 1.0 {tablet_as_needed} active M orphine Sulfate 15 MG eCW1 ([facility]) Morphine Sulfate 15 MG Oral Tablet Morphine Sulfate 15 MG 12:00:00 AM EST 1.0 {tablet_as_needed} active M orphine Sulfate 15 MG eCW1 ([facility]) Morphine Sulfate 15 MG Oral Tablet Morphine Sulfate 15 MG 12:00:00 AM EST 1.0 {tablet_as_needed} active M orphine Sulfate 15 MG eCW1 ([facility]) 15 mg 01/27/2020 12:00:00 AM EST tablet [...] Morphine Sulfate ER 15 MG eCW1 ( [facility]) Morphine Sulfate ER 15 MG UNK 01/26/2020 12:00:00 AM EST 1.0 {tablet} active Morphine Sulfate ER 15 MG eCW1 ( [facility]) Acetaminophen 325 MG / Oxycodone Hydroch loride 10 MG Oral Tablet [Percocet] Percocet 10-325 MG Percocet 10-325 MG 01/22/2020 12:00:00 AM EST 1.0 {tablet_as_needed} active Percocet 10-3 25 MG eCW1 ([facility]) Acetaminophen 325 MG / Oxycodone Hydroch loride 10 MG Oral Tablet [Percocet] Percocet 10-325 MG Percocet 10-325 MG 01/22/2020 12:00:00 AM EST 1.0 {tablet_as_needed} suspended Percocet 10 -325 MG eCW1 ([facility]) Acetaminophen 325 MG / Oxycodone Hydroch loride 10 MG Oral Tablet [Percocet] Percocet 10-325 MG Percocet 10-325 MG 01/22/2020 12:00:00 AM EST 1.0 {tablet_as_needed} suspended Percocet 10 -325 MG eCW1 ([facility]) Acetaminophen 325 MG / Oxycodone Hydroch loride 10 MG Oral Tablet [Percocet] Percocet 10-325 MG Percocet 10-325 MG 01/22/2020 12:00:00 AM EST 1.0 {tablet_as_needed} active Percocet 10-3 25 MG eCW1 ([facility]) Acetaminophen 325 MG / Oxycodone Hydroch loride 10 MG Oral Tablet [Percocet] Percocet 10-325 MG Percocet 10-325 MG 01/22/2020 12:00:00 AM EST 1.0 {tablet_as_needed} active Percocet 10-3 25 MG eCW1 ([facility]) Acetaminophen 325 MG / Oxycodone Hydroch loride 10 MG Oral Tablet [Percocet] Percocet 10-325 MG Percocet 10-325 MG 01/22/2020 12:00:00 AM EST 1.0 {tablet_as_needed} active Percocet 10-3 25 MG eCW1 ([facility]) Acetaminophen 325 MG / Oxycodone Hydroch loride 10 MG Oral Tablet [Percocet] Percocet 10-325 MG Percocet 10-325 MG 01/22/2020 12:00:00 AM EST 1.0 {tablet_as_needed} suspended Percocet 10 -325 MG eCW1 ([facility]) 10-325 mg 01/22/2020 12:00:00 AM EST tablet [...] {tablet_as_needed} suspended Percocet 10 -325 MG eCW1 ([facility]) Acetaminophen 325 MG / Oxycodone Hydroch loride 10 MG Oral Tablet [Percocet] Percocet 10-325 MG Percocet 10-325 MG 01/22/2020 12:00:00 AM EST 1.0 {tablet_as_needed} active Percocet 10-3 25 MG eCW1 ([facility]) Acetaminophen 325 MG / Oxycodone Hydroch loride 10 MG Oral Tablet [Percocet] Percocet 10-325 MG Percocet 10-325 MG 01/22/2020 12:00:00 AM EST 1.0 {tablet_as_needed} active Percocet 10-3 25 MG eCW1 ([facility]) Acetaminophen 325 MG / Oxycodone Hydroch loride 10 MG Oral Tablet [Percocet] Percocet 10-325 MG Percocet 10-325 MG 01/22/2020 12:00:00 AM EST 1.0 {tablet_as_needed} suspended Percocet 10 -325 MG eCW1 ([facility]) Acetaminophen 325 MG / Oxycodone Hydroch loride 10 MG Oral Tablet [Percocet] Percocet 10-325 MG Percocet 10-325 MG 01/22/2020 12:00:00 AM EST 1.0 {tablet_as_needed} suspended Percocet 10 -325 MG eCW1 ([facility]) Acetaminophen 325 MG / Oxycodone Hydroch loride 10 MG Oral Tablet [Percocet] Percocet 10-325 MG Percocet 10-325 MG 01/22/2020 12:00:00 AM EST 1.0 {tablet_as_needed} active Percocet 10-3 25 MG eCW1 ([facility]) Morphine Sulfate ER 15 MG UNK 01/20/2020 12:00:00 AM EST 1.0 {tablet} active Morphine Sulfate ER 15 MG eCW1 ( [facility]) Morphine Sulfate ER 15 MG UNK 01/20/2020 12:00:00 AM EST 1.0 {tablet} active Morphine Sulfate ER 15 MG eCW1 ( [facility]) Morphine Sulfate ER 15 MG UNK 01/20/2020 12:00:00 AM EST 1.0 {tablet} active Morphine Sulfate ER 15 MG eCW1 ( [facility]) 1 gram 01/20/2020 12:00:00 AM EST tablet 90 TAKE ONE TABLET BY MOUTH THREE TIMES A DAY ON EMPTY STOMACH BEFORE MEAL TAKE ONE TABLET BY MOUTH THREE TIMES A DAY ON EMPTY STOMACH BEFORE MEAL SOLD: 01/21/2020 [facility] Morphine Sulfate ER 15 MG UNK 01/20/2020 12:00:00 AM EST 1.0 {tablet} active Morphine Sulfate ER 15 MG eCW1 ( [facility]) Morphine Sulfate ER 15 MG UNK 01/20/2020 12:00:00 AM EST 1.0 {tablet} active Morphine Sulfate ER 15 MG eCW1 ( [facility]) Morphine Sulfate ER 15 MG UNK 01/20/2020 12:00:00 AM EST 1.0 {tablet} active Morphine Sulfate ER 15 MG eCW1 ( [facility]) Morphine Sulfate ER 15 MG UNK 01/20/2020 12:00:00 AM EST 1.0 {tablet} active Morphine Sulfate ER 15 MG eCW1 ( [facility] [facility] 1 gram 01/16/2020 12:00:00 AM EST tablet [...] {capsule} acti ve Cymbalta 30 MG eCW1 ([facility]) duloxetine 30 MG Delayed Release Oral Capsule [Cymbalt a] Cymbalta 30 MG Cymbalta 30 MG 01/13/2020 12:00:00 AM EST 1.0 {capsule} acti ve Cymbalta 30 MG eCW1 ([facility]) 30 mg 01/13/2020 12:00:00 AM EST capsule,delayed release (DR/EC) 60 TAKE ONE CAPSULE BY MOUTH TWICE A DAY TAKE ONE CAPSULE BY MOUTH TWICE A DAY SOLD: 01/20/2020 [facility] duloxetine 30 MG Delayed Release Oral Capsule [Cymbalt a] Cymbalta 30 MG Cymbalta 30 MG 01/13/2020 12:00:00 AM EST 1.0 {capsule} acti ve Cymbalta 30 MG eCW1 ([facility]) duloxetine 30 MG Delayed Release Oral Capsule [Cymbalt a] Cymbalta 30 MG Cymbalta 30 MG 01/13/2020 12:00:00 AM EST 1.0 {capsule} acti ve Cymbalta 30 MG eCW1 ([facility]) 30 mg 01/12/2020 12:00:00 AM EST capsule,delayed [...] suspended Spiriva R espimat 1.25 MCG/ACT eCW1 ([facility]) Spiriva Respimat 1.25 MCG/ACT Spiriva Respimat 1.25 MCG/ACT 12/29/2019 12:00:00 AM EST 2.0 {puffs} active Spiriva Resp imat 1.25 MCG/ACT eCW1 ([facility]) 250 mg 12/29/2019 12:00:00 AM EST tablet 30 TAKE ONE-HALF TABLET BY MOUTH TWICE A DAY TAKE ONE-HALF TABLET BY MOUTH TWICE A DAY SOLD: 12/29/2019 [facility] Spiriva Respimat 1.25 MCG/ACT Spiriva Respimat 1.25 MCG/ACT 12/29/2019 12:00:00 AM EST 2.0 {puffs} active Spiriva Resp imat 1.25 MCG/ACT eCW1 ([facility]) Spiriva Respimat 1.25 MCG/ACT Spiriva Respimat 1.25 MCG/ACT 12/29/2019 12:00:00 AM EST 2.0 {puffs} active Spiriva Resp imat 1.25 MCG/ACT eCW1 ([facility]) Spiriva Respimat 1.25 MCG/ACT Spiriva Respimat 1.25 MCG/ACT 12/29/2019 12:00:00 AM EST 2.0 {puffs} active Spiriva Resp imat 1.25 MCG/ACT eCW1 ([facility]) Spiriva Respimat 1.25 MCG/ACT Spiriva Respimat 1.25 MCG/ACT 12/29/2019 12:00:00 AM EST 2.0 {puffs} active Spiriva Resp imat 1.25 MCG/ACT eCW1 ([facility]) Spiriva Respimat 1.25 MCG/ACT Spiriva Respimat 1.25 MCG/ACT 12/29/2019 12:00:00 AM EST 2.0 {puffs} active Spiriva Resp imat 1.25 MCG/ACT eCW1 ([facility]) Spiriva Respimat 1.25 MCG/ACT Spiriva Respimat 1.25 MCG/ACT 12/29/2019 12:00:00 AM EST 2.0 {puffs} suspended Spiriva R espimat 1.25 MCG/ACT eCW1 ([facility]) Spiriva Respimat 1.25 MCG/ACT Spiriva Respimat 1.25 MCG/ACT 12/29/2019 12:00:00 AM EST 2.0 {puffs} suspended Spiriva R espimat 1.25 MCG/ACT eCW1 ([facility]) Spiriva Respimat 1.25 MCG/ACT Spiriva Respimat 1.25 MCG/ACT 12/29/2019 12:00:00 AM EST 2.0 {puffs} active Spiriva Resp imat 1.25 MCG/ACT eCW1 ([facility]) Spiriva Respimat 1.25 MCG/ACT Spiriva Respimat 1.25 MCG/ACT 12/29/2019 12:00:00 AM EST 2.0 {puffs} active Spiriva Resp imat 1.25 MCG/ACT eCW1 ([facility]) Spiriva Respimat 1.25 MCG/ACT Spiriva Respimat 1.25 MCG/ACT 12/29/2019 12:00:00 AM EST 2.0 {puffs} active Spiriva Resp imat 1.25 MCG/ACT eCW1 ([facility]) Spiriva Respimat 1.25 MCG/ACT Spiriva Respimat 1.25 MCG/ACT 12/29/2019 12:00:00 AM EST 2.0 {puffs} active Spiriva Resp imat 1.25 MCG/ACT eCW1 ([facility]) Spiriva Respimat 1.25 MCG/ACT Spiriva Respimat 1.25 MCG/ACT 12/29/2019 12:00:00 AM EST 2.0 {puffs} active Spiriva Resp imat 1.25 MCG/ACT eCW1 ([facility]) Spiriva Respimat 1.25 MCG/ACT Spiriva Respimat 1.25 MCG/ACT 12/29/2019 12:00:00 AM EST 2.0 {puffs} suspended Spiriva R espimat 1.25 MCG/ACT eCW1 ([facility]) Spiriva Respimat 1.25 MCG/ACT Spiriva Respimat 1.25 MCG/ACT 12/29/2019 12:00:00 AM EST 2.0 {puffs} active Spiriva Resp imat 1.25 MCG/ACT eCW1 ([facility]) Spiriva Respimat 1.25 MCG/ACT Spiriva Respimat 1.25 MCG/ACT 12/29/2019 12:00:00 AM EST 2.0 {puffs} active Spiriva Resp imat 1.25 MCG/ACT eCW1 ([facility]) Spiriva Respimat 1.25 MCG/ACT Spiriva Respimat 1.25 MCG/ACT 12/29/2019 12:00:00 AM EST 2.0 {puffs} active Spiriva Resp imat 1.25 MCG/ACT eCW1 ([facility]) Spiriva Respimat 1.25 MCG/ACT Spiriva Respimat 1.25 MCG/ACT 12/29/2019 12:00:00 AM EST 2.0 {puffs} active Spiriva Resp imat 1.25 MCG/ACT eCW1 ([facility]) Spiriva Respimat 1.25 MCG/ACT Spiriva Respimat 1.25 MCG/ACT 12/29/2019 12:00:00 AM EST 2.0 {puffs} active Spiriva Resp imat 1.25 MCG/ACT eCW1 ([facility]) Spiriva Respimat 1.25 MCG/ACT Spiriva Respimat 1.25 MCG/ACT 12/29/2019 12:00:00 AM EST 2.0 {puffs} active Spiriva Resp imat 1.25 MCG/ACT eCW1 ([facility]) Spiriva Respimat 1.25 MCG/ACT Spiriva Respimat 1.25 MCG/ACT 12/29/2019 12:00:00 AM EST 2.0 {puffs} suspended Spiriva R espimat 1.25 MCG/ACT eCW1 ([facility]) Spiriva Respimat 1.25 MCG/ACT Spiriva Respimat 1.25 MCG/ACT 12/29/2019 12:00:00 AM EST 2.0 {puffs} active Spiriva Resp imat 1.25 MCG/ACT eCW1 ([facility]) Spiriva Respimat 1.25 MCG/ACT Spiriva Respimat 1.25 MCG/ACT 12/29/2019 12:00:00 AM EST 2.0 {puffs} active Spiriva Resp imat 1.25 MCG/ACT eCW1 ([facility]) Spiriva Respimat 1.25 MCG/ACT Spiriva Respimat 1.25 MCG/ACT 12/29/2019 12:00:00 AM EST 2.0 {puffs} active Spiriva Resp imat 1.25 MCG/ACT eCW1 ([facility]) Spiriva Respimat 1.25 MCG/ACT Spiriva Respimat 1.25 MCG/ACT 12/29/2019 12:00:00 AM EST 2.0 {puffs} active Spiriva Resp imat 1.25 MCG/ACT eCW1 ([facility]) Spiriva Respimat 1.25 MCG/ACT Spiriva Respimat 1.25 MCG/ACT 12/29/2019 12:00:00 AM EST 2.0 {puffs} active Spiriva Resp imat 1.25 MCG/ACT eCW1 ([facility]) Spiriva Respimat 1.25 MCG/ACT Spiriva Respimat 1.25 MCG/ACT 12/29/2019 12:00:00 AM EST 2.0 {puffs} active Spiriva Resp imat 1.25 MCG/ACT eCW1 ([facility]) 20 mg 12/29/2019 12:00:00 AM EST tablet 90 TAKE ONE TABLET BY MOUTH THREE TIMES A DAY TAKE ONE TABLET BY MOUTH THREE TIMES A DAY SOLD: 01/26/2020 [facility] Spiriva Respimat 1.25 MCG/ACT Spiriva Respimat 1.25 MCG/ACT 12/29/2019 12:00:00 AM EST 2.0 {puffs} suspended Spiriva R espimat 1.25 MCG/ACT eCW1 ([facility]) Spiriva Respimat 1.25 MCG/ACT Spiriva Respimat 1.25 MCG/ACT 12/29/2019 12:00:00 AM EST 2.0 {puffs} suspended Spiriva R espimat 1.25 MCG/ACT eCW1 ([facility]) Spiriva Respimat 1.25 MCG/ACT Spiriva Respimat 1.25 MCG/ACT 12/29/2019 12:00:00 AM EST 2.0 {puffs} active Spiriva Resp imat 1.25 MCG/ACT eCW1 ([facility]) Spiriva Respimat 1.25 MCG/ACT Spiriva Respimat 1.25 MCG/ACT 12/29/2019 12:00:00 AM EST 2.0 {puffs} suspended Spiriva R espimat 1.25 MCG/ACT eCW1 ([facility]) Spiriva Respimat 1.25 MCG/ACT Spiriva Respimat 1.25 MCG/ACT 12/29/2019 12:00:00 AM EST 2.0 {puffs} active Spiriva Resp imat 1.25 MCG/ACT eCW1 ([facility]) Spiriva Respimat 1.25 MCG/ACT Spiriva Respimat 1.25 MCG/ACT 12/29/2019 12:00:00 AM EST 2.0 {puffs} active Spiriva Resp imat 1.25 MCG/ACT eCW1 ([facility]) 20 mg 12/29/2019 12:00:00 AM EST tablet 90 TAKE ONE TABLET BY MOUTH THREE TIMES A DAY TAKE ONE TABLET BY MOUTH THREE TIMES A DAY SOLD: 12/30/2019 [facility] Spiriva Respimat 1.25 MCG/ACT Spiriva Respimat 1.25 MCG/ACT 12/29/2019 12:00:00 AM EST 2.0 {puffs} active Spiriva Resp imat 1.25 MCG/ACT eCW1 ([facility]) Spiriva Respimat 1.25 MCG/ACT Spiriva Respimat 1.25 MCG/ACT 12/29/2019 12:00:00 AM EST 2.0 {puffs} active Spiriva Resp imat 1.25 MCG/ACT eCW1 ([facility]) Spiriva Respimat 1.25 MCG/ACT Spiriva Respimat 1.25 MCG/ACT 12/29/2019 12:00:00 AM EST 2.0 {puffs} suspended Spiriva R espimat 1.25 MCG/ACT eCW1 ([facility]) Spiriva Respimat 1.25 MCG/ACT Spiriva Respimat 1.25 MCG/ACT 12/29/2019 12:00:00 AM EST 2.0 {puffs} active Spiriva Resp imat 1.25 MCG/ACT eCW1 ([facility]) Spiriva Respimat 1.25 MCG/ACT Spiriva Respimat 1.25 MCG/ACT 12/29/2019 12:00:00 AM EST 2.0 {puffs} active Spiriva Resp imat 1.25 MCG/ACT eCW1 ([facility]) 2 mg 12/25/2019 12:00:00 AM EST tablet [...] EST active Omeprazo le 40 MG eCW1 ([facility]) Acetaminophen 325 MG / Oxycodone Hydroch loride 10 MG Oral Tablet [Percocet] Percocet 10-325 MG Percocet 10-325 MG 12/22/2019 12:00:00 AM EST 1.0 {tablet_as_needed} active Percocet 10-3 25 MG eCW1 ([facility]) Acetaminophen 325 MG / Oxycodone Hydroch loride 10 MG Oral Tablet [Percocet] Percocet 10-325 MG Percocet 10-325 MG 12/22/2019 12:00:00 AM EST 1.0 {tablet_as_needed} active Percocet 10-3 25 MG eCW1 ([facility]) Sucralfate 1000 MG Oral Tablet Sucralfate 1 GM Sucralfate 1 GM 12/22/2019 12:00:00 AM EST 1.0 {tablet_on_an_empty_stomach} active Sucralfate 1 GM eCW1 ([facility]) Sucralfate 1000 MG Oral Tablet Sucralfate 1 GM Sucralfate 1 GM 12/22/2019 12:00:00 AM EST 1.0 {tablet_on_an_empty_stomach} active Sucralfate 1 GM eCW1 ([facility]) Omeprazole 40 MG Delayed Release Oral Capsule Omeprazole 40 MG 12/22/2019 12:00:00 AM EST active Omeprazo le 40 MG eCW1 ([facility]) Omeprazole 40 MG Delayed Release Oral Capsule Omeprazole 40 MG 12/22/2019 12:00:00 AM EST active Omeprazo le 40 MG eCW1 ([facility]) Sucralfate 1000 MG Oral Tablet Sucralfate 1 GM Sucralfate 1 GM 12/22/2019 12:00:00 AM EST 1.0 {tablet_on_an_empty_stomach} active Sucralfate 1 GM eCW1 ([facility]) Sucralfate 1000 MG Oral Tablet Sucralfate 1 GM Sucralfate 1 GM 12/22/2019 12:00:00 AM EST 1.0 {tablet_on_an_empty_stomach} active Sucralfate 1 GM eCW1 ([facility]) Omeprazole 40 MG Delayed Release Oral Capsule Omeprazole 40 MG 12/22/2019 12:00:00 AM EST active Omeprazo le 40 MG eCW1 ([facility]) Acetaminophen 325 MG / Oxycodone Hydroch loride 10 MG Oral Tablet [Percocet] Percocet 10-325 MG Percocet 10-325 MG 12/22/2019 12:00:00 AM EST 1.0 {tablet_as_needed} active Percocet 10-3 25 MG eCW1 ([facility]) Omeprazole 40 MG Delayed Release Oral Capsule Omeprazole 40 MG 12/22/2019 12:00:00 AM EST active Omeprazo le 40 MG eCW1 ([facility]) Sucralfate 1000 MG Oral Tablet Sucralfate 1 GM Sucralfate 1 GM 12/22/2019 12:00:00 AM EST 1.0 {tablet_on_an_empty_stomach} active Sucralfate 1 GM eCW1 ([facility]) Acetaminophen 325 MG / Oxycodone Hydroch loride 10 MG Oral Tablet [Percocet] Percocet 10-325 MG Percocet 10-325 MG 12/22/2019 12:00:00 AM EST 1.0 {tablet_as_needed} active Percocet 10-3 25 MG eCW1 ([facility]) Sucralfate 1000 MG Oral Tablet Sucralfate 1 GM Sucralfate 1 GM 12/22/2019 12:00:00 AM EST 1.0 {tablet_on_an_empty_stomach} active Sucralfate 1 GM eCW1 ([facility]) 1 gram 12/22/2019 12:00:00 AM EST tablet 90 TAKE 1 TABLET BY MOUTH ON AN EMPTY STOMACH BEFORE EACH MEAL TAKE 1 TABLET BY MOUTH ON AN EMPTY STOMA CH BEFORE EACH MEAL SOLD: 12/22/2019 [facility] Sucralfate 1000 MG Oral Tablet Sucralfate 1 GM Sucralfate 1 GM 12/22/2019 12:00:00 AM EST 1.0 {tablet_on_an_empty_stomach} active Sucralfate 1 GM eCW1 ([facility]) Sucralfate 1000 MG Oral Tablet Sucralfate 1 GM Sucralfate 1 GM 12/22/2019 12:00:00 AM EST 1.0 {tablet_on_an_empty_stomach} active Sucralfate 1 GM eCW1 ([facility]) Omeprazole 40 MG Delayed Release Oral Capsule Omeprazole 40 MG 12/22/2019 12:00:00 AM EST active Omeprazo le 40 MG eCW1 ([facility]) Sucralfate 1000 MG Oral Tablet Sucralfate 1 GM Sucralfate 1 GM 12/22/2019 12:00:00 AM EST 1.0 {tablet_on_an_empty_stomach} active Sucralfate 1 GM eCW1 ([facility]) Sucralfate 1000 MG Oral Tablet Sucralfate 1 GM Sucralfate 1 GM 12/22/2019 12:00:00 AM EST 1.0 {tablet_on_an_empty_stomach} active Sucralfate 1 GM eCW1 ([facility]) Acetaminophen 325 MG / Oxycodone Hydroch loride 10 MG Oral Tablet [Percocet] Percocet 10-325 MG Percocet 10-325 MG 12/22/2019 12:00:00 AM EST 1.0 {tablet_as_needed} active Percocet 10-3 25 MG eCW1 ([facility]) Omeprazole 40 MG Delayed Release Oral Capsule Omeprazole 40 MG 12/22/2019 12:00:00 AM EST active Omeprazo le 40 MG eCW1 ([facility]) Sucralfate 1000 MG Oral Tablet Sucralfate 1 GM Sucralfate 1 GM 12/22/2019 12:00:00 AM EST 1.0 {tablet_on_an_empty_stomach} active Sucralfate 1 GM eCW1 ([facility]) Omeprazole 40 MG Delayed Release Oral Capsule Omeprazole 40 MG 12/22/2019 12:00:00 AM EST active Omeprazo le 40 MG eCW1 ([facility]) Acetaminophen 325 MG / Oxycodone Hydroch loride 10 MG Oral Tablet [Percocet] Percocet 10-325 MG Percocet 10-325 MG 12/22/2019 12:00:00 AM EST 1.0 {tablet_as_needed} active Percocet 10-3 25 MG eCW1 ([facility]) Sucralfate 1000 MG Oral Tablet Sucralfate 1 GM Sucralfate 1 GM 12/22/2019 12:00:00 AM EST 1.0 {tablet_on_an_empty_stomach} active Sucralfate 1 GM eCW1 ([facility]) Sucralfate 1000 MG Oral Tablet Sucralfate 1 GM Sucralfate 1 GM 12/22/2019 12:00:00 AM EST 1.0 {tablet_on_an_empty_stomach} active Sucralfate 1 GM eCW1 ([facility]) Omeprazole 40 MG Delayed Release Oral Capsule Omeprazole 40 MG 12/22/2019 12:00:00 AM EST active Omeprazo le 40 MG eCW1 ([facility]) Omeprazole 40 MG Delayed Release Oral Capsule Omeprazole 40 MG 12/22/2019 12:00:00 AM EST active Omeprazo le 40 MG eCW1 ([facility]) Omeprazole 40 MG Delayed Release Oral Capsule Omeprazole 40 MG 12/22/2019 12:00:00 AM EST active Omeprazo le 40 MG eCW1 ([facility]) Sucralfate 1000 MG Oral Tablet Sucralfate 1 GM Sucralfate 1 GM 12/22/2019 12:00:00 AM EST 1.0 {tablet_on_an_empty_stomach} active Sucralfate 1 GM eCW1 ([facility]) Sucralfate 1000 MG Oral Tablet Sucralfate 1 GM Sucralfate 1 GM 12/22/2019 12:00:00 AM EST 1.0 {tablet_on_an_empty_stomach} active Sucralfate 1 GM eCW1 ([facility]) Omeprazole 40 MG Delayed Release Oral Capsule Omeprazole 40 MG 12/22/2019 12:00:00 AM EST active Omeprazo le 40 MG eCW1 ([facility]) Acetaminophen 325 MG / Oxycodone Hydroch loride 10 MG Oral Tablet [Percocet] Percocet 10-325 MG Percocet 10-325 MG 12/22/2019 12:00:00 AM EST 1.0 {tablet_as_needed} active Percocet 10-3 25 MG eCW1 ([facility]) Sucralfate 1000 MG Oral Tablet Sucralfate 1 GM Sucralfate 1 GM 12/22/2019 12:00:00 AM EST 1.0 {tablet_on_an_empty_stomach} active Sucralfate 1 GM eCW1 ([facility]) Omeprazole 40 MG Delayed Release Oral Capsule Omeprazole 40 MG 12/22/2019 12:00:00 AM EST active Omeprazo le 40 MG eCW1 ([facility]) Omeprazole 40 MG Delayed Release Oral Capsule Omeprazole 40 MG 12/22/2019 12:00:00 AM EST active Omeprazo le 40 MG eCW1 ([facility]) Acetaminophen 325 MG / Oxycodone Hydroch loride 10 MG Oral Tablet [Percocet] Percocet 10-325 MG Percocet 10-325 MG 12/22/2019 12:00:00 AM EST 1.0 {tablet_as_needed} active Percocet 10-3 25 MG eCW1 ([facility]) Sucralfate 1000 MG Oral Tablet Sucralfate 1 GM Sucralfate 1 GM 12/22/2019 12:00:00 AM EST 1.0 {tablet_on_an_empty_stomach} active Sucralfate 1 GM eCW1 ([facility]) Sucralfate 1000 MG Oral Tablet Sucralfate 1 GM Sucralfate 1 GM 12/22/2019 12:00:00 AM EST 1.0 {tablet_on_an_empty_stomach} active Sucralfate 1 GM eCW1 ([facility]) Sucralfate 1000 MG Oral Tablet Sucralfate 1 GM Sucralfate 1 GM 12/22/2019 12:00:00 AM EST 1.0 {tablet_on_an_empty_stomach} active Sucralfate 1 GM eCW1 ([facility]) Omeprazole 40 MG Delayed Release Oral Capsule Omeprazole 40 MG 12/22/2019 12:00:00 AM EST active Omeprazo le 40 MG eCW1 ([facility]) Omeprazole 40 MG Delayed Release Oral Capsule Omeprazole 40 MG 12/22/2019 12:00:00 AM EST active Omeprazo le 40 MG eCW1 ([facility]) Omeprazole 40 MG Delayed Release Oral Capsule Omeprazole 40 MG 12/22/2019 12:00:00 AM EST active Omeprazo le 40 MG eCW1 ([facility]) Sucralfate 1000 MG Oral Tablet Sucralfate 1 GM Sucralfate 1 GM 12/22/2019 12:00:00 AM EST 1.0 {tablet_on_an_empty_stomach} active Sucralfate 1 GM eCW1 ([facility]) Omeprazole 40 MG Delayed Release Oral Capsule Omeprazole 40 MG 12/22/2019 12:00:00 AM EST active Omeprazo le 40 MG eCW1 ([facility]) Sucralfate 1000 MG Oral Tablet Sucralfate 1 GM Sucralfate 1 GM 12/22/2019 12:00:00 AM EST 1.0 {tablet_on_an_empty_stomach} active Sucralfate 1 GM eCW1 ([facility]) Omeprazole 40 MG Delayed Release Oral Capsule Omeprazole 40 MG 12/22/2019 12:00:00 AM EST active Omeprazo le 40 MG eCW1 ([facility]) Omeprazole 40 MG Delayed Release Oral Capsule Omeprazole 40 MG 12/22/2019 12:00:00 AM EST active Omeprazo le 40 MG eCW1 ([facility]) Acetaminophen 325 MG / Oxycodone Hydroch loride 10 MG Oral Tablet [Percocet] Percocet 10-325 MG Percocet 10-325 MG 12/22/2019 12:00:00 AM EST 1.0 {tablet_as_needed} active Percocet 10-3 25 MG eCW1 ([facility]) Sucralfate 1000 MG Oral Tablet Sucralfate 1 GM Sucralfate 1 GM 12/22/2019 12:00:00 AM EST 1.0 {tablet_on_an_empty_stomach} active Sucralfate 1 GM eCW1 ([facility]) Omeprazole 40 MG Delayed Release Oral Capsule Omeprazole 40 MG 12/22/2019 12:00:00 AM EST active Omeprazo le 40 MG eCW1 ([facility]) Sucralfate 1000 MG Oral Tablet Sucralfate 1 GM Sucralfate 1 GM 12/22/2019 12:00:00 AM EST 1.0 {tablet_on_an_empty_stomach} active Sucralfate 1 GM eCW1 ([facility]) Omeprazole 40 MG Delayed Release Oral Capsule Omeprazole 40 MG 12/22/2019 12:00:00 AM EST active Omeprazo le 40 MG eCW1 ([facility]) Omeprazole 40 MG Delayed Release Oral Capsule Omeprazole 40 MG 12/22/2019 12:00:00 AM EST active Omeprazo le 40 MG eCW1 ([facility]) Acetaminophen 325 MG / Oxycodone Hydroch loride 10 MG Oral Tablet [Percocet] Percocet 10-325 MG Percocet 10-325 MG 12/22/2019 12:00:00 AM EST 1.0 {tablet_as_needed} active Percocet 10-3 25 MG eCW1 ([facility]) Sucralfate 1000 MG Oral Tablet Sucralfate 1 GM Sucralfate 1 GM 12/22/2019 12:00:00 AM EST 1.0 {tablet_on_an_empty_stomach} active Sucralfate 1 GM eCW1 ([facility]) Sucralfate 1000 MG Oral Tablet Sucralfate 1 GM Sucralfate 1 GM 12/22/2019 12:00:00 AM EST 1.0 {tablet_on_an_empty_stomach} active Sucralfate 1 GM eCW1 ([facility]) Sucralfate 1000 MG Oral Tablet Sucralfate 1 GM Sucralfate 1 GM 12/22/2019 12:00:00 AM EST 1.0 {tablet_on_an_empty_stomach} active Sucralfate 1 GM eCW1 ([facility]) Sucralfate 1000 MG Oral Tablet Sucralfate 1 GM Sucralfate 1 GM 12/22/2019 12:00:00 AM EST 1.0 {tablet_on_an_empty_stomach} active Sucralfate 1 GM eCW1 ([facility]) Acetaminophen 325 MG / Oxycodone Hydroch loride 10 MG Oral Tablet [Percocet] Percocet 10-325 MG Percocet 10-325 MG 12/22/2019 12:00:00 AM EST 1.0 {tablet_as_needed} active Percocet 10-3 25 MG [facility] ([facility]) Omeprazole 40 MG Delayed Release Oral Capsule Omeprazole 40 MG 12/22/2019 12:00:00 AM EST active Omeprazo le 40 MG W1 ([facility]) Omeprazole 40 MG Delayed Release Oral Capsule Omeprazole 40 MG 12/22/2019 12:00:00 AM EST active Omeprazo le 40 MG [facility] ([facility]) Sucralfate 1000 MG Oral Tablet Sucralfate 1 GM Sucralfate 1 GM 12/22/2019 12:00:00 AM EST 1.0 {tablet_on_an_empty_stomach} active Sucralfate 1 GM eCW1 ([facility]) Sucralfate 1000 MG Oral Tablet Sucralfate 1 GM Sucralfate 1 GM 12/22/2019 12:00:00 AM EST 1.0 {tablet_on_an_empty_stomach} active Sucralfate 1 GM eCW1 ([facility]) Sucralfate 1000 MG Oral Tablet Sucralfate 1 GM Sucralfate 1 GM 12/22/2019 12:00:00 AM EST 1.0 {tablet_on_an_empty_stomach} active Sucralfate 1 GM eCW1 ([facility]) Sucralfate 1000 MG Oral Tablet Sucralfate 1 GM Sucralfate 1 GM 12/22/2019 12:00:00 AM EST 1.0 {tablet_on_an_empty_stomach} active Sucralfate 1 GM eCW1 ([facility]) Omeprazole 40 MG Delayed Release Oral Capsule Omeprazole 40 MG 12/22/2019 12:00:00 AM EST active Omeprazo le 40 MG eCW1 ([facility]) Sucralfate 1000 MG Oral Tablet Sucralfate 1 GM Sucralfate 1 GM 12/22/2019 12:00:00 AM EST 1.0 {tablet_on_an_empty_stomach} active Sucralfate 1 GM eCW1 ([facility]) Acetaminophen 325 MG / Oxycodone Hydroch loride 10 MG Oral Tablet [Percocet] Percocet 10-325 MG Percocet 10-325 MG 12/22/2019 12:00:00 AM EST 1.0 {tablet_as_needed} active Percocet 10-3 25 MG eCW1 ([facility]) Acetaminophen 325 MG / Oxycodone Hydroch loride 10 MG Oral Tablet [Percocet] Percocet 10-325 MG Percocet 10-325 MG 12/22/2019 12:00:00 AM EST 1.0 {tablet_as_needed} active Percocet 10-3 25 MG eCW1 ([facility]) Acetaminophen 325 MG / Oxycodone Hydroch loride 10 MG Oral Tablet [Percocet] Percocet 10-325 MG Percocet 10-325 MG 12/22/2019 12:00:00 AM EST 1.0 {tablet_as_needed} active Percocet 10-3 25 MG eCW1 ([facility]) Acetaminophen 325 MG / Oxycodone Hydroch loride 10 MG Oral Tablet [Percocet] Percocet 10-325 MG Percocet 10-325 MG 12/22/2019 12:00:00 AM EST 1.0 {tablet_as_needed} active Percocet 10-3 25 MG eCW1 ([facility]) Omeprazole 40 MG Delayed Release Oral Capsule Omeprazole 40 MG 12/22/2019 12:00:00 AM EST active Omeprazo le 40 MG eCW1 ([facility]) Sucralfate 1000 MG Oral Tablet Sucralfate 1 GM Sucralfate 1 GM 12/22/2019 12:00:00 AM EST 1.0 {tablet_on_an_empty_stomach} active Sucralfate 1 GM eCW1 ([facility]) Omeprazole 40 MG Delayed Release Oral Capsule Omeprazole 40 MG 12/22/2019 12:00:00 AM EST active Omeprazo le 40 MG eCW1 ([facility]) Sucralfate 1000 MG Oral Tablet Sucralfate 1 GM Sucralfate 1 GM 12/22/2019 12:00:00 AM EST 1.0 {tablet_on_an_empty_stomach} active Sucralfate 1 GM eCW1 ([facility]) Sucralfate 1000 MG Oral Tablet Sucralfate 1 GM Sucralfate 1 GM 12/22/2019 12:00:00 AM EST 1.0 {tablet_on_an_empty_stomach} active Sucralfate 1 GM eCW1 ([facility]) Acetaminophen 325 MG / Oxycodone Hydroch loride 10 MG Oral Tablet [Percocet] Percocet 10-325 MG Percocet 10-325 MG 12/22/2019 12:00:00 AM EST 1.0 {tablet_as_needed} active Percocet 10-3 25 MG eCW1 ([facility]) Acetaminophen 325 MG / Oxycodone Hydroch loride 10 MG Oral Tablet [Percocet] Percocet 10-325 MG Percocet 10-325 MG 12/22/2019 12:00:00 AM EST 1.0 {tablet_as_needed} active Percocet 10-3 25 MG eCW1 ([facility]) Sucralfate 1000 MG Oral Tablet Sucralfate 1 GM Sucralfate 1 GM 12/22/2019 12:00:00 AM EST 1.0 {tablet_on_an_empty_stomach} active Sucralfate 1 GM eCW1 ([facility]) Sucralfate 1000 MG Oral Tablet Sucralfate 1 GM Sucralfate 1 GM 12/22/2019 12:00:00 AM EST 1.0 {tablet_on_an_empty_stomach} active Sucralfate 1 GM eCW1 ([facility]) Omeprazole 40 MG Delayed Release Oral Capsule Omeprazole 40 MG 12/22/2019 12:00:00 AM EST active Omeprazo le 40 MG eCW1 ([facility]) Omeprazole 40 MG Delayed Release Oral Capsule Omeprazole 40 MG 12/22/2019 12:00:00 AM EST active Omeprazo le 40 MG eCW1 ([facility]) Acetaminophen 325 MG / Oxycodone Hydroch loride 10 MG Oral Tablet [Percocet] Percocet 10-325 MG Percocet 10-325 MG 12/22/2019 12:00:00 AM EST 1.0 {tablet_as_needed} active Percocet 10-3 25 MG eCW1 ([facility]) Acetaminophen 325 MG / Oxycodone Hydroch loride 10 MG Oral Tablet [Percocet] Percocet 10-325 MG Percocet 10-325 MG 12/22/2019 12:00:00 AM EST 1.0 {tablet_as_needed} active Percocet 10-3 25 MG eCW1 ([facility]) Omeprazole 40 MG Delayed Release Oral Capsule Omeprazole 40 MG 12/22/2019 12:00:00 AM EST active Omeprazo le 40 MG eCW1 ([facility]) 40 mg 12/22/2019 12:00:00 AM EST capsule,delayed release (DR/EC) 30 TAKE 1 CAPSULE BY MOUTH 30 MINS. BEFORE MORNING MEAL TAKE 1 CAPSULE BY MOUTH 30 MINS. BEFORE MORNING MEAL SOLD: 12/22/2019 [facility] Omeprazole 40 MG Delayed Release Oral Capsule Omeprazole 40 MG 12/22/2019 12:00:00 AM EST active Omeprazo le 40 MG eCW1 ([facility]) Sucralfate 1000 MG Oral Tablet Sucralfate 1 GM Sucralfate 1 GM 12/22/2019 12:00:00 AM EST 1.0 {tablet_on_an_empty_stomach} active Sucralfate 1 GM eCW1 ([facility]) Omeprazole 40 MG Delayed Release Oral Capsule Omeprazole 40 MG 12/22/2019 12:00:00 AM EST active Omeprazo le 40 MG eCW1 ([facility]) Acetaminophen 325 MG / Oxycodone Hydroch loride 10 MG Oral Tablet [Percocet] Percocet 10-325 MG Percocet 10-325 MG 12/22/2019 12:00:00 AM EST 1.0 {tablet_as_needed} active Percocet 10-3 25 MG eCW1 ([facility]) Sucralfate 1000 MG Oral Tablet Sucralfate 1 GM Sucralfate 1 GM 12/22/2019 12:00:00 AM EST 1.0 {tablet_on_an_empty_stomach} active Sucralfate 1 GM eCW1 ([facility]) Sucralfate 1000 MG Oral Tablet Sucralfate 1 GM Sucralfate 1 GM 12/22/2019 12:00:00 AM EST 1.0 {tablet_on_an_empty_stomach} active Sucralfate 1 GM eCW1 ([facility]) Omeprazole 40 MG Delayed Release Oral Capsule Omeprazole 40 MG 12/22/2019 12:00:00 AM EST active Omeprazo le 40 MG eCW1 ([facility]) Omeprazole 40 MG Delayed Release Oral Capsule Omeprazole 40 MG 12/22/2019 12:00:00 AM EST active Omeprazo le 40 MG eCW1 ([facility]) Omeprazole 40 MG Delayed Release Oral Capsule Omeprazole 40 MG 12/22/2019 12:00:00 AM EST active Omeprazo le 40 MG eCW1 ([facility]) Acetaminophen 325 MG / Oxycodone Hydroch loride 10 MG Oral Tablet [Percocet] Percocet 10-325 MG Percocet 10-325 MG 12/22/2019 12:00:00 AM EST 1.0 {tablet_as_needed} active Percocet 10-3 25 MG eCW1 ([facility]) Acetaminophen 325 MG / Oxycodone Hydroch loride 10 MG Oral Tablet [Percocet] Percocet 10-325 MG Percocet 10-325 MG 12/22/2019 12:00:00 AM EST 1.0 {tablet_as_needed} active Percocet 10-3 25 MG eCW1 ([facility]) Acetaminophen 325 MG / Oxycodone Hydroch loride 10 MG Oral Tablet [Percocet] Percocet 10-325 MG Percocet 10-325 MG 12/22/2019 12:00:00 AM EST 1.0 {tablet_as_needed} active Percocet 10-3 25 MG eCW1 ([facility]) Omeprazole 40 MG Delayed Release Oral Capsule Omeprazole 40 MG 12/22/2019 12:00:00 AM EST active Omeprazo le 40 MG eCW1 ([facility]) Acetaminophen 325 MG / Oxycodone Hydroch loride 10 MG Oral Tablet [Percocet] Percocet 10-325 MG Percocet 10-325 MG 12/22/2019 12:00:00 AM EST 1.0 {tablet_as_needed} active Percocet 10-3 25 MG eCW1 ([facility]) Sucralfate 1000 MG Oral Tablet Sucralfate 1 GM Sucralfate 1 GM 12/22/2019 12:00:00 AM EST 1.0 {tablet_on_an_empty_stomach} active Sucralfate 1 GM eCW1 ([facility]) Sucralfate 1000 MG Oral Tablet Sucralfate 1 GM Sucralfate 1 GM 12/22/2019 12:00:00 AM EST 1.0 {tablet_on_an_empty_stomach} active Sucralfate 1 GM eCW1 ([facility]) Omeprazole 40 MG Delayed Release Oral Capsule Omeprazole 40 MG 12/22/2019 12:00:00 AM EST active Omeprazo le 40 MG eCW1 ([facility]) Omeprazole 40 MG Delayed Release Oral Capsule Omeprazole 40 MG 12/22/2019 12:00:00 AM EST active Omeprazo le 40 MG eCW1 ([facility]) Omeprazole 40 MG Delayed Release Oral Capsule Omeprazole 40 MG 12/22/2019 12:00:00 AM EST active Omeprazo le 40 MG eCW1 ([facility]) Omeprazole 40 MG Delayed Release Oral Capsule Omeprazole 40 MG 12/22/2019 12:00:00 AM EST active Omeprazo le 40 MG eCW1 ([facility]) Acetaminophen 325 MG / Oxycodone Hydroch loride 10 MG Oral Tablet [Percocet] Percocet 10-325 MG Percocet 10-325 MG 12/22/2019 12:00:00 AM EST 1.0 {tablet_as_needed} active Percocet 10-3 25 MG eCW1 ([facility]) Acetaminophen 325 MG / Oxycodone Hydroch loride 10 MG Oral Tablet [Percocet] Percocet 10-325 MG Percocet 10-325 MG 12/22/2019 12:00:00 AM EST 1.0 {tablet_as_needed} active Percocet 10-3 25 MG eCW1 ([facility]) Sucralfate 1000 MG Oral Tablet Sucralfate 1 GM Sucralfate 1 GM 12/22/2019 12:00:00 AM EST 1.0 {tablet_on_an_empty_stomach} active Sucralfate 1 GM eCW1 ([facility]) Sucralfate 1000 MG Oral Tablet Sucralfate 1 GM Sucralfate 1 GM 12/22/2019 12:00:00 AM EST 1.0 {tablet_on_an_empty_stomach} active Sucralfate 1 GM eCW1 ([facility]) Omeprazole 40 MG Delayed Release Oral Capsule Omeprazole 40 MG 12/22/2019 12:00:00 AM EST active Omeprazo le 40 MG eCW1 ([facility]) Acetaminophen 325 MG / Oxycodone Hydroch loride 10 MG Oral Tablet [Percocet] Percocet 10-325 MG Percocet 10-325 MG 12/22/2019 12:00:00 AM EST 1.0 {tablet_as_needed} active Percocet 10-3 25 MG eCW1 ([facility]) Acetaminophen 325 MG / Oxycodone Hydroch loride 10 MG Oral Tablet [Percocet] Percocet 10-325 MG Percocet 10-325 MG 12/22/2019 12:00:00 AM EST 1.0 {tablet_as_needed} active Percocet 10-3 25 MG eCW1 ([facility]) Sucralfate 1000 MG Oral Tablet Sucralfate 1 GM Sucralfate 1 GM 12/22/2019 12:00:00 AM EST 1.0 {tablet_on_an_empty_stomach} active Sucralfate 1 GM eCW1 ([facility]) Omeprazole 40 MG Delayed Release Oral Capsule Omeprazole 40 MG 12/22/2019 12:00:00 AM EST active Omeprazo le 40 MG eCW1 ([facility]) Sucralfate 1000 MG Oral Tablet Sucralfate 1 GM Sucralfate 1 GM 12/22/2019 12:00:00 AM EST 1.0 {tablet_on_an_empty_stomach} active Sucralfate 1 GM eCW1 ([facility]) Sucralfate 1000 MG Oral Tablet Sucralfate 1 GM Sucralfate 1 12/22/2019 12:00:00 AM EST 1.0 {tablet_on_an_empty_stomach} active Sucralfate 1 GM eCW1 ([facility]) Omeprazole 40 MG Delayed Release Oral Capsule Omeprazole 40 MG 12/22/2019 12:00:00 AM EST active Omeprazo le 40 MG eCW1 ([facility]) Omeprazole 40 MG Delayed Release Oral Capsule Omeprazole 40 MG 12/22/2019 12:00:00 AM EST active Omeprazo le 40 MG eCW1 ([facility]) Sucralfate 1000 MG Oral Tablet Sucralfate 1 GM Sucralfate 1 GM 12/22/2019 12:00:00 AM EST 1.0 {tablet_on_an_empty_stomach} active Sucralfate 1 GM eCW1 ([facility]) Sucralfate 1000 MG Oral Tablet Sucralfate 1 GM Sucralfate 1 GM 12/22/2019 12:00:00 AM EST 1.0 {tablet_on_an_empty_stomach} active Sucralfate 1 GM eCW1 ([facility]) Omeprazole 40 MG Delayed Release Oral Capsule Omeprazole 40 MG 12/22/2019 12:00:00 AM EST active Omeprazo le 40 MG eCW1 ([facility]) Acetaminophen 325 MG / Oxycodone Hydroch loride 10 MG Oral Tablet [Percocet] Percocet 10-325 MG Percocet 10-325 MG 12/22/2019 12:00:00 AM EST 1.0 {tablet_as_needed} active Percocet 10-3 25 MG eCW1 ([facility]) Omeprazole 40 MG Delayed Release Oral Capsule Omeprazole 40 MG 12/22/2019 12:00:00 AM EST active Omeprazo le 40 MG eCW1 ([facility]) Omeprazole 40 MG Delayed Release Oral Capsule Omeprazole 40 MG 12/22/2019 12:00:00 AM EST active Omeprazo le 40 MG eCW1 ([facility]) Acetaminophen 325 MG / Oxycodone Hydroch loride 10 MG Oral Tablet [Percocet] Percocet 10-325 MG Percocet 10-325 MG 12/22/2019 12:00:00 AM EST 1.0 {tablet_as_needed} active Percocet 10-3 25 MG eCW1 ([facility]) Omeprazole 40 MG Delayed Release Oral Capsule Omeprazole 40 MG 12/22/2019 12:00:00 AM EST active Omeprazo le 40 MG eCW1 ([facility]) Omeprazole 40 MG Delayed Release Oral Capsule Omeprazole 40 MG 12/22/2019 12:00:00 AM EST active Omeprazo le 40 MG eCW1 ([facility]) Acetaminophen 325 MG / Oxycodone Hydroch loride 10 MG Oral Tablet [Percocet] Percocet 10-325 MG Percocet 10-325 MG 12/22/2019 12:00:00 AM EST 1.0 {tablet_as_needed} active Percocet 10-3 25 MG eCW1 ([facility]) Acetaminophen 325 MG / Oxycodone Hydroch loride 10 MG Oral Tablet [Percocet] Percocet 10-325 MG Percocet 10-325 MG 12/22/2019 12:00:00 AM EST 1.0 {tablet_as_needed} active Percocet 10-3 25 MG eCW1 ([facility]) Sucralfate 1000 MG Oral Tablet Sucralfate 1 GM Sucralfate 1 GM 12/22/2019 12:00:00 AM EST 1.0 {tablet_on_an_empty_stomach} active Sucralfate 1 GM eCW1 ([facility]) Omeprazole 40 MG Delayed Release Oral Capsule Omeprazole 40 MG 12/22/2019 12:00:00 AM EST active Omeprazo le 40 MG eCW1 ([facility]) 10-325 mg 12/22/2019 12:00:00 AM EST tablet 90 TAKE ONE TABLET BY MOUTH EVERY 6 HOURS MAXIMUM DAILY DOSE = 4 TABLETS TAKE ONE TABLET BY MOUTH EVERY 6 HOURS MAXIMUM DAILY DOSE = 4 TABLETS SOLD: 12/22/2019 [facility] Omeprazole 40 MG Delayed Release Oral Capsule Omeprazole 40 MG 12/22/2019 12:00:00 AM EST active Omeprazo le 40 MG eCW1 ([facility]) Acetaminophen 325 MG / Oxycodone Hydroch loride 10 MG Oral Tablet [Percocet] Percocet 10-325 MG Percocet 10-325 MG 12/22/2019 12:00:00 AM EST 1.0 {tablet_as_needed} active Percocet 10-3 25 MG eCW1 ([facility]) Omeprazole 40 MG Delayed Release Oral Capsule Omeprazole 40 MG 12/22/2019 12:00:00 AM EST active Omeprazo le 40 MG eCW1 ([facility]) Acetaminophen 325 MG / Oxycodone Hydroch loride 10 MG Oral Tablet [Percocet] Percocet 10-325 MG Percocet 10-325 MG 12/22/2019 12:00:00 AM EST 1.0 {tablet_as_needed} active Percocet 10-3 25 MG eCW1 ([facility]) Sucralfate 1000 MG Oral Tablet Sucralfate 1 GM Sucralfate 1 GM 12/22/2019 12:00:00 AM EST 1.0 {tablet_on_an_empty_stomach} active Sucralfate 1 GM eCW1 ([facility]) Acetaminophen 325 MG / Oxycodone Hydroch loride 10 MG Oral Tablet [Percocet] Percocet 10-325 MG Percocet 10-325 MG 12/22/2019 12:00:00 AM EST 1.0 {tablet_as_needed} active Percocet 10-3 25 MG eCW1 ([facility]) Omeprazole 40 MG Delayed Release Oral Capsule Omeprazole 40 MG 12/22/2019 12:00:00 AM EST active Omeprazo le 40 MG eCW1 ([facility]) Sucralfate 1000 MG Oral Tablet Sucralfate 1 GM Sucralfate 1 GM 12/22/2019 12:00:00 AM EST 1.0 {tablet_on_an_empty_stomach} active Sucralfate 1 GM eCW1 ([facility]) Sucralfate 1000 MG Oral Tablet Sucralfate 1 GM Sucralfate 1 GM 12/22/2019 12:00:00 AM EST 1.0 {tablet_on_an_empty_stomach} active Sucralfate 1 GM eCW1 ([facility]) Sucralfate 1000 MG Oral Tablet Sucralfate 1 GM Sucralfate 1 GM 12/22/2019 12:00:00 AM EST 1.0 {tablet_on_an_empty_stomach} active Sucralfate 1 GM eCW1 ([facility]) Amlodipine 5 MG / valsartan 160 MG Oral Tablet 5-160 m g AMLODIPINE BESYLATE/VALSARTAN 12/19/2019 12:00:00 AM EST tablet 90 TAKE ONE TABLET BY MOUTH EVERY DAY TAKE ONE TABLET BY MOUTH EVERY DAY SOLD: 12/19/2019 [facility] Amlodipine 5 MG / valsartan 160 MG Oral Tablet 5-160 m g AMLODIPINE BESYLATE/VALSARTAN 12/19/2019 12:00:00 AM EST tablet 90 TAKE ONE TABLET BY MOUTH EVERY DAY TAKE ONE TABLET BY MOUTH EVERY DAY SOLD: 03/30/2020 [facility] 350 mg 12/12/2019 12:00:00 AM [...] {tablet_as_needed} active Percocet 10-3 25 MG eCW1 ([facility]) Acetaminophen 325 MG / Oxycodone Hydroch loride 10 MG Oral Tablet [Percocet] Percocet 10-325 MG Percocet 10-325 MG 11/24/2019 12:00:00 AM EDT 1.0 {tablet_as_needed} active Percocet 10-3 25 MG eCW1 ([facility]) Acetaminophen 325 MG / Oxycodone Hydroch loride 10 MG Oral Tablet [Percocet] Percocet 10-325 MG Percocet 10-325 MG 11/24/2019 12:00:00 AM EDT 1.0 {tablet_as_needed} active Percocet 10-3 25 MG eCW1 ([facility]) Acetaminophen 325 MG / Oxycodone Hydroch loride 10 MG Oral Tablet [Percocet] Percocet 10-325 MG Percocet 10-325 MG 11/24/2019 12:00:00 AM EDT 1.0 {tablet_as_needed} active Percocet 10-3 25 MG eCW1 ([facility]) Acetaminophen 325 MG / Oxycodone Hydroch loride 10 MG Oral Tablet [Percocet] Percocet 10-325 MG Percocet 10-325 MG 11/24/2019 12:00:00 AM EDT 1.0 {tablet_as_needed} active Percocet 10-3 25 MG eCW1 ([facility]) Acetaminophen 325 MG / Oxycodone Hydroch loride 10 MG Oral Tablet [Percocet] Percocet 10-325 MG Percocet 10-325 MG 11/24/2019 12:00:00 AM EDT 1.0 {tablet_as_needed} active Percocet 10-3 25 MG eCW1 ([facility]) Acetaminophen 325 MG / Oxycodone Hydroch loride 10 MG Oral Tablet [Percocet] Percocet 10-325 MG Percocet 10-325 MG 11/24/2019 12:00:00 AM EDT 1.0 {tablet_as_needed} active Percocet 10-3 25 MG eCW1 ([facility]) Acetaminophen 325 MG / Oxycodone Hydroch loride 10 MG Oral Tablet [Percocet] Percocet 10-325 MG Percocet 10-325 MG 11/24/2019 12:00:00 AM EDT 1.0 {tablet_as_needed} active Percocet 10-3 25 MG eCW1 ([facility]) Acetaminophen 325 MG / Oxycodone Hydroch loride 10 MG Oral Tablet [Percocet] Percocet 10-325 MG Percocet 10-325 MG 11/24/2019 12:00:00 AM EDT 1.0 {tablet_as_needed} active Percocet 10-3 25 MG eCW1 ([facility]) 10-325 mg 11/24/2019 12:00:00 AM EDT tablet [...] {tablet_as_needed} active Percocet 10-3 25 MG eCW1 ([facility]) Acetaminophen 325 MG / Oxycodone Hydroch loride 10 MG Oral Tablet [Percocet] Percocet 10-325 MG Percocet 10-325 MG 11/24/2019 12:00:00 AM EDT 1.0 {tablet_as_needed} active Percocet 10-3 25 MG eCW1 ([facility]) Acetaminophen 325 MG / Oxycodone Hydroch loride 10 MG Oral Tablet [Percocet] Percocet 10-325 MG Percocet 10-325 MG 11/24/2019 12:00:00 AM EDT 1.0 {tablet_as_needed} active Percocet 10-3 25 MG eCW1 ([facility]) Acetaminophen 325 MG / Oxycodone Hydroch loride 10 MG Oral Tablet [Percocet] Percocet 10-325 MG Percocet 10-325 MG 11/24/2019 12:00:00 AM EDT 1.0 {tablet_as_needed} active Percocet 10-3 25 MG eCW1 ([facility]) Acetaminophen 325 MG / Oxycodone Hydroch loride 10 MG Oral Tablet [Percocet] Percocet 10-325 MG Percocet 10-325 MG 11/24/2019 12:00:00 AM EDT 1.0 {tablet_as_needed} active Percocet 10-3 25 MG eCW1 ([facility]) Acetaminophen 325 MG / Oxycodone Hydroch loride 10 MG Oral Tablet [Percocet] Percocet 10-325 MG Percocet 10-325 MG 11/24/2019 12:00:00 AM EDT 1.0 {tablet_as_needed} active Percocet 10-3 25 MG eCW1 ([facility]) Acetaminophen 325 MG / Oxycodone Hydroch loride 10 MG Oral Tablet [Percocet] Percocet 10-325 MG Percocet 10-325 MG 11/24/2019 12:00:00 AM EDT 1.0 {tablet_as_needed} active Percocet 10-3 25 MG eCW1 ([facility]) Acetaminophen 325 MG / Oxycodone Hydroch loride 10 MG Oral Tablet [Percocet] Percocet 10-325 MG Percocet 10-325 MG 11/24/2019 12:00:00 AM EDT 1.0 {tablet_as_needed} active Percocet 10-3 25 MG eCW1 ([facility]) Acetaminophen 325 MG / Oxycodone Hydroch loride 10 MG Oral Tablet [Percocet] Percocet 10-325 MG Percocet 10-325 MG 11/24/2019 12:00:00 AM EDT 1.0 {tablet_as_needed} active Percocet 10-3 25 MG eCW1 ([facility]) atorvastatin 40 MG Oral Tablet ATORVASTATIN CALCIUM [...] AM EDT active Diazepam 2 MG eCW1 ([facility]) Diazepam 2 MG Oral Tablet Diazepam 2 MG 11/10/2019 12:00:00 AM EDT 1.0 {tablet_as_needed} active Diazepam 2 MG eCW1 ([facility]) Diazepam 2 MG Oral Tablet Diazepam 2 MG 11/10/2019 12:00:00 AM EDT 1.0 {tablet_as_needed} active Diazepam 2 MG eCW1 ([facility]) Diazepam 2 MG Oral Tablet Diazepam 2 MG 11/10/2019 12:00:00 AM EDT active Diazepam 2 MG eCW1 ([facility]) Diazepam 2 MG Oral Tablet Diazepam 2 MG 11/10/2019 12:00:00 AM EDT active Diazepam 2 MG eCW1 ([facility]) Diazepam 2 MG Oral Tablet Diazepam 2 MG 11/10/2019 12:00:00 AM EDT active Diazepam 2 MG eCW1 ([facility]) Diazepam 2 MG Oral Tablet Diazepam 2 MG 11/10/2019 12:00:00 AM EDT active Diazepam 2 MG eCW1 ([facility]) Diazepam 2 MG Oral Tablet Diazepam 2 MG 11/10/2019 12:00:00 AM EDT active Diazepam 2 MG eCW1 ([facility]) Diazepam 2 MG Oral Tablet Diazepam 2 MG 11/10/2019 12:00:00 AM EDT active Diazepam 2 MG eCW1 ([facility]) Diazepam 2 MG Oral Tablet Diazepam 2 MG 11/10/2019 12:00:00 AM EDT 1.0 {tablet_as_needed} active Diazepam 2 MG eCW1 ([facility]) Diazepam 2 MG Oral Tablet Diazepam 2 MG 11/10/2019 12:00:00 AM EDT 1.0 {tablet_as_needed} active Diazepam 2 MG eCW1 ([facility]) Diazepam 2 MG Oral Tablet Diazepam 2 MG 11/10/2019 12:00:00 AM EDT active Diazepam 2 MG eCW1 ([facility]) Diazepam 2 MG Oral Tablet Diazepam 2 MG 11/10/2019 12:00:00 AM EDT 1.0 {tablet_as_needed} active Diazepam 2 MG eCW1 ([facility]) Diazepam 2 MG Oral Tablet Diazepam 2 MG 11/10/2019 12:00:00 AM EDT active Diazepam 2 MG eCW1 ([facility]) Diazepam 2 MG Oral Tablet Diazepam 2 MG 11/10/2019 12:00:00 AM EDT 1.0 {tablet_as_needed} active Diazepam 2 MG eCW1 ([facility]) Diazepam 2 MG Oral Tablet Diazepam 2 MG 11/10/2019 12:00:00 AM EDT active Diazepam 2 MG eCW1 ([facility]) Diazepam 2 MG Oral Tablet Diazepam 2 MG 11/10/2019 12:00:00 AM EDT active Diazepam 2 MG eCW1 ([facility]) Diazepam 2 MG Oral Tablet Diazepam 2 MG 11/10/2019 12:00:00 AM EDT active Diazepam 2 MG eCW1 ([facility]) Diazepam 2 MG Oral Tablet Diazepam 2 MG 11/10/2019 12:00:00 AM EDT 1.0 {tablet_as_needed} active Diazepam 2 MG eCW1 ([facility]) Diazepam 2 MG Oral Tablet Diazepam 2 MG 11/10/2019 12:00:00 AM EDT 1.0 {tablet_as_needed} active Diazepam 2 MG eCW1 ([facility]) Diazepam 2 MG Oral Tablet Diazepam 2 MG 11/10/2019 12:00:00 AM EDT 1.0 {tablet_as_needed} active Diazepam 2 MG eCW1 ([facility]) Diazepam 2 MG Oral Tablet Diazepam 2 MG 11/10/2019 12:00:00 AM EDT active Diazepam 2 MG eCW1 ([facility]) Diazepam 2 MG Oral Tablet Diazepam 2 MG 11/10/2019 12:00:00 AM EDT active Diazepam 2 MG eCW1 ([facility]) Diazepam 2 MG Oral Tablet Diazepam 2 MG 11/10/2019 12:00:00 AM EDT active Diazepam 2 MG eCW1 ([facility]) Diazepam 2 MG Oral Tablet Diazepam 2 MG 11/10/2019 12:00:00 AM EDT active Diazepam 2 MG eCW1 ([facility]) Diazepam 2 MG Oral Tablet Diazepam 2 MG 11/10/2019 12:00:00 AM EDT active Diazepam 2 MG eCW1 ([facility]) Diazepam 2 MG Oral Tablet Diazepam 2 MG 11/10/2019 12:00:00 AM EDT active Diazepam 2 MG eCW1 ([facility]) Diazepam 2 MG Oral Tablet Diazepam 2 MG 11/10/2019 12:00:00 AM EDT active Diazepam 2 MG eCW1 ([facility]) Diazepam 2 MG Oral Tablet Diazepam 2 MG 11/10/2019 12:00:00 AM EDT 1.0 {tablet_as_needed} active Diazepam 2 MG eCW1 ([facility]) Diazepam 2 MG Oral Tablet Diazepam 2 MG 11/10/2019 12:00:00 AM EDT active Diazepam 2 MG eCW1 ([facility]) Diazepam 2 MG Oral Tablet Diazepam 2 MG 11/10/2019 12:00:00 AM EDT active Diazepam 2 MG eCW1 ([facility]) Diazepam 2 MG Oral Tablet Diazepam 2 MG 11/10/2019 12:00:00 AM EDT active Diazepam 2 MG eCW1 ([facility]) Diazepam 2 MG Oral Tablet Diazepam 2 MG 11/10/2019 12:00:00 AM EDT active Diazepam 2 MG eCW1 ([facility]) Diazepam 2 MG Oral Tablet Diazepam 2 MG 11/10/2019 12:00:00 AM EDT active Diazepam 2 MG eCW1 ([facility]) Diazepam 2 MG Oral Tablet Diazepam 2 MG 11/10/2019 12:00:00 AM EDT 1.0 {tablet_as_needed} active Diazepam 2 MG eCW1 ([facility]) Diazepam 2 MG Oral Tablet Diazepam 2 MG 11/10/2019 12:00:00 AM EDT 1.0 {tablet_as_needed} active Diazepam 2 MG eCW1 ([facility]) Diazepam 2 MG Oral Tablet Diazepam 2 MG 11/10/2019 12:00:00 AM EDT active Diazepam 2 MG eCW1 ([facility]) Diazepam 2 MG Oral Tablet Diazepam 2 MG 11/10/2019 12:00:00 AM EDT active Diazepam 2 MG eCW1 ([facility]) Diazepam 2 MG Oral Tablet Diazepam 2 MG 11/10/2019 12:00:00 AM EDT active Diazepam 2 MG eCW1 ([facility]) Diazepam 2 MG Oral Tablet Diazepam 2 MG 11/10/2019 12:00:00 AM EDT 1.0 {tablet_as_needed} active Diazepam 2 MG eCW1 ([facility]) Diazepam 2 MG Oral Tablet Diazepam 2 MG 11/10/2019 12:00:00 AM EDT 1.0 {tablet_as_needed} active Diazepam 2 MG eCW1 ([facility]) Diazepam 2 MG Oral Tablet Diazepam 2 MG 11/10/2019 12:00:00 AM EDT active Diazepam 2 MG eCW1 ([facility]) Diazepam 2 MG Oral Tablet Diazepam 2 MG 11/10/2019 12:00:00 AM EDT 1.0 {tablet_as_needed} active Diazepam 2 MG eCW1 ([facility]) Diazepam 2 MG Oral Tablet Diazepam 2 MG 11/10/2019 12:00:00 AM EDT 1.0 {tablet_as_needed} active Diazepam 2 MG eCW1 ([facility]) Diazepam 2 MG Oral Tablet Diazepam 2 MG 11/10/2019 12:00:00 AM EDT 1.0 {tablet_as_needed} active Diazepam 2 MG eCW1 ([facility]) Diazepam 2 MG Oral Tablet Diazepam 2 MG 11/10/2019 12:00:00 AM EDT 1.0 {tablet_as_needed} active Diazepam 2 MG eCW1 ([facility]) Diazepam 2 MG Oral Tablet Diazepam 2 MG 11/10/2019 12:00:00 AM EDT active Diazepam 2 MG eCW1 ([facility]) Diazepam 2 MG Oral Tablet Diazepam 2 MG 11/10/2019 12:00:00 AM EDT active Diazepam 2 MG eCW1 ([facility]) Diazepam 2 MG Oral Tablet Diazepam 2 MG 11/10/2019 12:00:00 AM EDT 1.0 {tablet_as_needed} active Diazepam 2 MG eCW1 ([facility]) Diazepam 2 MG Oral Tablet Diazepam 2 MG 11/10/2019 12:00:00 AM EDT 1.0 {tablet_as_needed} active Diazepam 2 MG eCW1 ([facility]) Diazepam 2 MG Oral Tablet Diazepam 2 MG 11/10/2019 12:00:00 AM EDT active Diazepam 2 MG eCW1 ([facility]) Diazepam 2 MG Oral Tablet Diazepam 2 MG 11/10/2019 12:00:00 AM EDT 1.0 {tablet_as_needed} active Diazepam 2 MG eCW1 ([facility]) Diazepam 2 MG Oral Tablet Diazepam 2 MG 11/10/2019 12:00:00 AM EDT active Diazepam 2 MG eCW1 ([facility]) Diazepam 2 MG Oral Tablet Diazepam 2 MG 11/10/2019 12:00:00 AM EDT active Diazepam 2 MG eCW1 ([facility]) Diazepam 2 MG Oral Tablet Diazepam 2 MG 11/10/2019 12:00:00 AM EDT active Diazepam 2 MG eCW1 ([facility]) Diazepam 2 MG Oral Tablet Diazepam 2 MG 11/10/2019 12:00:00 AM EDT active Diazepam 2 MG eCW1 ([facility]) Diazepam 2 MG Oral Tablet Diazepam 2 MG 11/10/2019 12:00:00 AM EDT active Diazepam 2 MG eCW1 ([facility]) Diazepam 2 MG Oral Tablet Diazepam 2 MG 11/10/2019 12:00:00 AM EDT active Diazepam 2 MG eCW1 ([facility]) Diazepam 2 MG Oral Tablet Diazepam 2 MG 11/10/2019 12:00:00 AM EDT 1.0 {tablet_as_needed} active Diazepam 2 MG eCW1 ([facility]) Diazepam 2 MG Oral Tablet Diazepam 2 MG 11/10/2019 12:00:00 AM EDT active Diazepam 2 MG eCW1 ([facility]) Diazepam 2 MG Oral Tablet Diazepam 2 MG 11/10/2019 12:00:00 AM EDT active Diazepam 2 MG eCW1 ([facility]) Diazepam 2 MG Oral Tablet Diazepam 2 MG 11/10/2019 12:00:00 AM EDT 1.0 {tablet_as_needed} active Diazepam 2 MG eCW1 ([facility]) Diazepam 2 MG Oral Tablet Diazepam 2 MG 11/10/2019 12:00:00 AM EDT active Diazepam 2 MG eCW1 ([facility]) Diazepam 2 MG Oral Tablet Diazepam 2 MG 11/10/2019 12:00:00 AM EDT 1.0 {tablet_as_needed} active Diazepam 2 MG eCW1 ([facility]) Diazepam 2 MG Oral Tablet Diazepam 2 MG 11/10/2019 12:00:00 AM EDT 1.0 {tablet_as_needed} active Diazepam 2 MG eCW1 ([facility]) Diazepam 2 MG Oral Tablet Diazepam 2 MG 11/10/2019 12:00:00 AM EDT 1.0 {tablet_as_needed} active Diazepam 2 MG eCW1 ([facility]) Diazepam 2 MG Oral Tablet Diazepam 2 MG 11/10/2019 12:00:00 AM EDT 1.0 {tablet_as_needed} active Diazepam 2 MG eCW1 ([facility]) Diazepam 2 MG Oral Tablet Diazepam 2 MG 11/10/2019 12:00:00 AM EDT active Diazepam 2 MG eCW1 ([facility]) Diazepam 2 MG Oral Tablet Diazepam 2 MG 11/10/2019 12:00:00 AM EDT 1.0 {tablet_as_needed} active Diazepam 2 MG eCW1 ([facility]) Diazepam 2 MG Oral Tablet Diazepam 2 MG 11/10/2019 12:00:00 AM EDT active Diazepam 2 MG eCW1 ([facility]) Diazepam 2 MG Oral Tablet Diazepam 2 MG 11/10/2019 12:00:00 AM EDT 1.0 {tablet_as_needed} active Diazepam 2 MG eCW1 ([facility]) Diazepam 2 MG Oral Tablet Diazepam 2 MG 11/10/2019 12:00:00 AM EDT active Diazepam 2 MG eCW1 ([facility]) Diazepam 2 MG Oral Tablet Diazepam 2 MG 11/10/2019 12:00:00 AM EDT active Diazepam 2 MG eCW1 ([facility]) Diazepam 2 MG Oral Tablet Diazepam 2 MG 11/10/2019 12:00:00 AM EDT active Diazepam 2 MG eCW1 ([facility]) Diazepam 2 MG Oral Tablet Diazepam 2 MG 11/10/2019 12:00:00 AM EDT active Diazepam 2 MG eCW1 ([facility]) Diazepam 2 MG Oral Tablet Diazepam 2 MG 11/10/2019 12:00:00 AM EDT active Diazepam 2 MG eCW1 ([facility]) Diazepam 2 MG Oral Tablet Diazepam 2 MG 11/10/2019 12:00:00 AM EDT active Diazepam 2 MG eCW1 ([facility]) Diazepam 2 MG Oral Tablet Diazepam 2 MG 11/10/2019 12:00:00 AM EDT active Diazepam 2 MG eCW1 ([facility]) Diazepam 2 MG Oral Tablet Diazepam 2 MG 11/10/2019 12:00:00 AM EDT active Diazepam 2 MG eCW1 ([facility]) Diazepam 2 MG Oral Tablet Diazepam 2 MG 11/10/2019 12:00:00 AM EDT active Diazepam 2 MG eCW1 ([facility]) 15 mg 11/04/2019 12:00:00 AM EDT tablet [...] MAXIMUM DAILY DOSE = 4 SOLD: 09/14/2019 [employer] 28 ACTUAT tiotropium 0.0025 MG/ACTUAT Me tered Dose Inhaler [Spiriva] Spiriva Respimat 2.5 MCG/ACT Spiriva Respimat 2.5 MCG/ACT 09/04/2019 12:00:00 AM EDT 2.0 {puffs} suspended Spiriva Respimat 2 .5 MCG/ACT eCW1 ([facility]) 28 ACTUAT tiotropium 0.0025 MG/ACTUAT Me tered Dose Inhaler [Spiriva] Spiriva Respimat 2.5 MCG/ACT Spiriva Respimat 2.5 MCG/ACT 09/04/2019 12:00:00 AM EDT 2.0 {puffs} suspended Spiriva Respimat 2 .5 MCG/ACT eCW1 ([facility]) 28 ACTUAT tiotropium 0.0025 MG/ACTUAT Me tered Dose Inhaler [Spiriva] Spiriva Respimat 2.5 MCG/ACT Spiriva Respimat 2.5 MCG/ACT 09/04/2019 12:00:00 AM EDT 2.0 {puffs} active Spiriva Respimat 2.5 MCG/ACT eCW1 ([facility]) 28 ACTUAT tiotropium 0.0025 MG/ACTUAT Me tered Dose Inhaler [Spiriva] Spiriva Respimat 2.5 MCG/ACT Spiriva Respimat 2.5 MCG/ACT 09/04/2019 12:00:00 AM EDT 2.0 {puffs} suspended Spiriva Respimat 2 .5 MCG/ACT eCW1 ([facility]) 15 mg 09/04/2019 12:00:00 AM EDT tablet extended release 90 TAKE ONE TABLET BY MOUTH EVERY MORNING AND TWO TABLETS AT BEDTIME MAXIMUM DAILY DOSE = THREE TABLETS TAKE ONE TABLET BY MOUTH EVERY MORNING A ND TWO TABLETS AT BEDTIME MAXIMUM DAILY DOSE = THREE TABLETS SOLD: 09/04/2019 [employer] 28 ACTUAT tiotropium 0.0025 MG/ACTUAT Me tered Dose Inhaler [Spiriva] Spiriva Respimat 2.5 MCG/ACT Spiriva Respimat 2.5 MCG/ACT 09/04/2019 12:00:00 AM EDT 2.0 {puffs} active Spiriva Respimat 2.5 MCG/ACT eCW1 ([facility]) 28 ACTUAT tiotropium 0.0025 MG/ACTUAT Me tered Dose Inhaler [Spiriva] Spiriva Respimat 2.5 MCG/ACT Spiriva Respimat 2.5 MCG/ACT 09/04/2019 12:00:00 AM EDT 2.0 {puffs} active Spiriva Respimat 2.5 MCG/ACT eCW1 ([facility]) 28 ACTUAT tiotropium 0.0025 MG/ACTUAT Me tered Dose Inhaler [Spiriva] Spiriva Respimat 2.5 MCG/ACT Spiriva Respimat 2.5 MCG/ACT 09/04/2019 12:00:00 AM EDT 2.0 {puffs} suspended Spiriva Respimat 2 .5 MCG/ACT eCW1 ([facility]) 28 ACTUAT tiotropium 0.0025 MG/ACTUAT Me tered Dose Inhaler [Spiriva] Spiriva Respimat 2.5 MCG/ACT Spiriva Respimat 2.5 MCG/ACT 09/04/2019 12:00:00 AM EDT 2.0 {puffs} active Spiriva Respimat 2.5 MCG/ACT eCW1 ([facility]) 28 ACTUAT tiotropium 0.0025 MG/ACTUAT Me tered Dose Inhaler [Spiriva] Spiriva Respimat 2.5 MCG/ACT Spiriva Respimat 2.5 MCG/ACT 09/04/2019 12:00:00 AM EDT 2.0 {puffs} suspended Spiriva Respimat 2 .5 MCG/ACT eCW1 ([facility]) 28 ACTUAT tiotropium 0.0025 MG/ACTUAT Me tered Dose Inhaler [Spiriva] Spiriva Respimat 2.5 MCG/ACT Spiriva Respimat 2.5 MCG/ACT 09/04/2019 12:00:00 AM EDT 2.0 {puffs} active Spiriva Respimat 2.5 MCG/ACT eCW1 ([facility]) 28 ACTUAT tiotropium 0.0025 MG/ACTUAT Me tered Dose Inhaler [Spiriva] Spiriva Respimat 2.5 MCG/ACT Spiriva Respimat 2.5 MCG/ACT 09/04/2019 12:00:00 AM EDT 2.0 {puffs} suspended Spiriva Respimat 2 .5 MCG/ACT eCW1 ([facility]) 28 ACTUAT tiotropium 0.0025 MG/ACTUAT Me tered Dose Inhaler [Spiriva] Spiriva Respimat 2.5 MCG/ACT Spiriva Respimat 2.5 MCG/ACT 09/04/2019 12:00:00 AM EDT 2.0 {puffs} active Spiriva Respimat 2.5 MCG/ACT eCW1 ([facility]) 28 ACTUAT tiotropium 0.0025 MG/ACTUAT Me tered Dose Inhaler [Spiriva] Spiriva Respimat 2.5 MCG/ACT Spiriva Respimat 2.5 MCG/ACT 09/04/2019 12:00:00 AM EDT 2.0 {puffs} active Spiriva Respimat 2.5 MCG/ACT eCW1 ([facility]) 28 ACTUAT tiotropium 0.0025 MG/ACTUAT Me tered Dose Inhaler [Spiriva] Spiriva Respimat 2.5 MCG/ACT Spiriva Respimat 2.5 MCG/ACT 09/04/2019 12:00:00 AM EDT 2.0 {puffs} suspended Spiriva Respimat 2 .5 MCG/ACT eCW1 ([facility]) 28 ACTUAT tiotropium 0.0025 MG/ACTUAT Me tered Dose Inhaler [Spiriva] Spiriva Respimat 2.5 MCG/ACT Spiriva Respimat 2.5 MCG/ACT 09/04/2019 12:00:00 AM EDT 2.0 {puffs} active Spiriva Respimat 2.5 MCG/ACT eCW1 ([facility]) 28 ACTUAT tiotropium 0.0025 MG/ACTUAT Me tered Dose Inhaler [Spiriva] Spiriva Respimat 2.5 MCG/ACT Spiriva Respimat 2.5 MCG/ACT 09/04/2019 12:00:00 AM EDT 2.0 {puffs} suspended Spiriva Respimat 2 .5 MCG/ACT eCW1 ([facility]) 28 ACTUAT tiotropium 0.0025 MG/ACTUAT Me tered Dose Inhaler [Spiriva] Spiriva Respimat 2.5 MCG/ACT Spiriva Respimat 2.5 MCG/ACT 09/04/2019 12:00:00 AM EDT 2.0 {puffs} active Spiriva Respimat 2.5 MCG/ACT eCW1 ([facility]) 28 ACTUAT tiotropium 0.0025 MG/ACTUAT Me tered Dose Inhaler [Spiriva] Spiriva Respimat 2.5 MCG/ACT Spiriva Respimat 2.5 MCG/ACT 09/04/2019 12:00:00 AM EDT 2.0 {puffs} suspended Spiriva Respimat 2 .5 MCG/ACT eCW1 ([facility]) 28 ACTUAT tiotropium 0.0025 MG/ACTUAT Me tered Dose Inhaler [Spiriva] Spiriva Respimat 2.5 MCG/ACT Spiriva Respimat 2.5 MCG/ACT 09/04/2019 12:00:00 AM EDT 2.0 {puffs} active Spiriva Respimat 2.5 MCG/ACT eCW1 ([facility]) 28 ACTUAT tiotropium 0.0025 MG/ACTUAT Me tered Dose Inhaler [Spiriva] Spiriva Respimat 2.5 MCG/ACT Spiriva Respimat 2.5 MCG/ACT 09/04/2019 12:00:00 AM EDT 2.0 {puffs} active Spiriva Respimat 2.5 MCG/ACT eCW1 ([facility]) 28 ACTUAT tiotropium 0.0025 MG/ACTUAT Me tered Dose Inhaler [Spiriva] Spiriva Respimat 2.5 MCG/ACT Spiriva Respimat 2.5 MCG/ACT 09/04/2019 12:00:00 AM EDT 2.0 {puffs} active Spiriva Respimat 2.5 MCG/ACT eCW1 ([facility]) 28 ACTUAT tiotropium 0.0025 MG/ACTUAT Me tered Dose Inhaler [Spiriva] Spiriva Respimat 2.5 MCG/ACT Spiriva Respimat 2.5 MCG/ACT 09/04/2019 12:00:00 AM EDT 2.0 {puffs} suspended Spiriva Respimat 2 .5 MCG/ACT eCW1 ([facility]) 28 ACTUAT tiotropium 0.0025 MG/ACTUAT Me tered Dose Inhaler [Spiriva] Spiriva Respimat 2.5 MCG/ACT Spiriva Respimat 2.5 MCG/ACT 09/04/2019 12:00:00 AM EDT 2.0 {puffs} active Spiriva Respimat 2.5 MCG/ACT eCW1 ([facility]) 28 ACTUAT tiotropium 0.0025 MG/ACTUAT Me tered Dose Inhaler [Spiriva] Spiriva Respimat 2.5 MCG/ACT Spiriva Respimat 2.5 MCG/ACT 09/04/2019 12:00:00 AM EDT 2.0 {puffs} active Spiriva Respimat 2.5 MCG/ACT eCW1 ([facility]) 28 ACTUAT tiotropium 0.0025 MG/ACTUAT Me tered Dose Inhaler [Spiriva] Spiriva Respimat 2.5 MCG/ACT Spiriva Respimat 2.5 MCG/ACT 09/04/2019 12:00:00 AM EDT 2.0 {puffs} suspended Spiriva Respimat 2 .5 MCG/ACT eCW1 ([facility]) 28 ACTUAT tiotropium 0.0025 MG/ACTUAT Me tered Dose Inhaler [Spiriva] Spiriva Respimat 2.5 MCG/ACT Spiriva Respimat 2.5 MCG/ACT 09/04/2019 12:00:00 AM EDT 2.0 {puffs} suspended Spiriva Respimat 2 .5 MCG/ACT eCW1 ([facility]) 28 ACTUAT tiotropium 0.0025 MG/ACTUAT Me tered Dose Inhaler [Spiriva] Spiriva Respimat 2.5 MCG/ACT Spiriva Respimat 2.5 MCG/ACT 09/04/2019 12:00:00 AM EDT 2.0 {puffs} active Spiriva Respimat 2.5 MCG/ACT eCW1 ([facility]) 28 ACTUAT tiotropium 0.0025 MG/ACTUAT Me tered Dose Inhaler [Spiriva] Spiriva Respimat 2.5 MCG/ACT Spiriva Respimat 2.5 MCG/ACT 09/04/2019 12:00:00 AM EDT 2.0 {puffs} suspended Spiriva Respimat 2 .5 MCG/ACT eCW1 ([facility]) 28 ACTUAT tiotropium 0.0025 MG/ACTUAT Me tered Dose Inhaler [Spiriva] Spiriva Respimat 2.5 MCG/ACT Spiriva Respimat 2.5 MCG/ACT 09/04/2019 12:00:00 AM EDT 2.0 {puffs} active Spiriva Respimat 2.5 MCG/ACT eCW1 ([facility]) 28 ACTUAT tiotropium 0.0025 MG/ACTUAT Me tered Dose Inhaler [Spiriva] Spiriva Respimat 2.5 MCG/ACT Spiriva Respimat 2.5 MCG/ACT 09/04/2019 12:00:00 AM EDT 2.0 {puffs} suspended Spiriva Respimat 2 .5 MCG/ACT eCW1 ([facility]) 28 ACTUAT tiotropium 0.0025 MG/ACTUAT Me tered Dose Inhaler [Spiriva] Spiriva Respimat 2.5 MCG/ACT Spiriva Respimat 2.5 MCG/ACT 09/04/2019 12:00:00 AM EDT 2.0 {puffs} suspended Spiriva Respimat 2 .5 MCG/ACT eCW1 ([facility]) 28 ACTUAT tiotropium 0.0025 MG/ACTUAT Me tered Dose Inhaler [Spiriva] Spiriva Respimat 2.5 MCG/ACT Spiriva Respimat 2.5 MCG/ACT 09/04/2019 12:00:00 AM EDT 2.0 {puffs} active Spiriva Respimat 2.5 MCG/ACT eCW1 ([facility]) 28 ACTUAT tiotropium 0.0025 MG/ACTUAT Me tered Dose Inhaler [Spiriva] Spiriva Respimat 2.5 MCG/ACT Spiriva Respimat 2.5 MCG/ACT 09/04/2019 12:00:00 AM EDT 2.0 {puffs} active Spiriva Respimat 2.5 MCG/ACT eCW1 ([facility]) 28 ACTUAT tiotropium 0.0025 MG/ACTUAT Me tered Dose Inhaler [Spiriva] Spiriva Respimat 2.5 MCG/ACT Spiriva Respimat 2.5 MCG/ACT 09/04/2019 12:00:00 AM EDT 2.0 {puffs} suspended Spiriva Respimat 2 .5 MCG/ACT eCW1 ([facility]) 28 ACTUAT tiotropium 0.0025 MG/ACTUAT Me tered Dose Inhaler [Spiriva] Spiriva Respimat 2.5 MCG/ACT Spiriva Respimat 2.5 MCG/ACT 09/04/2019 12:00:00 AM EDT 2.0 {puffs} active Spiriva Respimat 2.5 MCG/ACT eCW1 ([facility]) 28 ACTUAT tiotropium 0.0025 MG/ACTUAT Me tered Dose Inhaler [Spiriva] Spiriva Respimat 2.5 MCG/ACT Spiriva Respimat 2.5 MCG/ACT 09/04/2019 12:00:00 AM EDT 2.0 {puffs} suspended Spiriva Respimat 2 .5 MCG/ACT eCW1 ([facility]) 28 ACTUAT tiotropium 0.0025 MG/ACTUAT Me tered Dose Inhaler [Spiriva] Spiriva Respimat 2.5 MCG/ACT Spiriva Respimat 2.5 MCG/ACT 09/04/2019 12:00:00 AM EDT 2.0 {puffs} active Spiriva Respimat 2.5 MCG/ACT eCW1 ([facility]) 28 ACTUAT tiotropium 0.0025 MG/ACTUAT Me tered Dose Inhaler [Spiriva] Spiriva Respimat 2.5 MCG/ACT Spiriva Respimat 2.5 MCG/ACT 09/04/2019 12:00:00 AM EDT 2.0 {puffs} active Spiriva Respimat 2.5 MCG/ACT eCW1 ([facility]) 28 ACTUAT tiotropium 0.0025 MG/ACTUAT Me tered Dose Inhaler [Spiriva] Spiriva Respimat 2.5 MCG/ACT Spiriva Respimat 2.5 MCG/ACT 09/04/2019 12:00:00 AM EDT 2.0 {puffs} active Spiriva Respimat 2.5 MCG/ACT eCW1 ([facility]) 28 ACTUAT tiotropium 0.0025 MG/ACTUAT Me tered Dose Inhaler [Spiriva] Spiriva Respimat 2.5 MCG/ACT Spiriva Respimat 2.5 MCG/ACT 09/04/2019 12:00:00 AM EDT 2.0 {puffs} active Spiriva Respimat 2.5 MCG/ACT eCW1 ([facility]) 28 ACTUAT tiotropium 0.0025 MG/ACTUAT Me tered Dose Inhaler [Spiriva] Spiriva Respimat 2.5 MCG/ACT Spiriva Respimat 2.5 MCG/ACT 09/04/2019 12:00:00 AM EDT 2.0 {puffs} active Spiriva Respimat 2.5 MCG/ACT eCW1 ([facility]) 28 ACTUAT tiotropium 0.0025 MG/ACTUAT Me tered Dose Inhaler [Spiriva] Spiriva Respimat 2.5 MCG/ACT Spiriva Respimat 2.5 MCG/ACT 09/04/2019 12:00:00 AM EDT 2.0 {puffs} suspended Spiriva Respimat 2 .5 MCG/ACT eCW1 ([facility]) 28 ACTUAT tiotropium 0.0025 MG/ACTUAT Me tered Dose Inhaler [Spiriva] Spiriva Respimat 2.5 MCG/ACT Spiriva Respimat 2.5 MCG/ACT 09/04/2019 12:00:00 AM EDT 2.0 {puffs} active Spiriva Respimat 2.5 MCG/ACT eCW1 ([facility]) 28 ACTUAT tiotropium 0.0025 MG/ACTUAT Me tered Dose Inhaler [Spiriva] Spiriva Respimat 2.5 MCG/ACT Spiriva Respimat 2.5 MCG/ACT 09/04/2019 12:00:00 AM EDT 2.0 {puffs} suspended Spiriva Respimat 2 .5 MCG/ACT eCW1 ([facility]) 28 ACTUAT tiotropium 0.0025 MG/ACTUAT Me tered Dose Inhaler [Spiriva] Spiriva Respimat 2.5 MCG/ACT Spiriva Respimat 2.5 MCG/ACT 09/04/2019 12:00:00 AM EDT 2.0 {puffs} active Spiriva Respimat 2.5 MCG/ACT eCW1 ([facility]) 28 ACTUAT tiotropium 0.0025 MG/ACTUAT Me tered Dose Inhaler [Spiriva] Spiriva Respimat 2.5 MCG/ACT Spiriva Respimat 2.5 MCG/ACT 09/04/2019 12:00:00 AM EDT 2.0 {puffs} active Spiriva Respimat 2.5 MCG/ACT eCW1 ([facility]) 28 ACTUAT tiotropium 0.0025 MG/ACTUAT Me tered Dose Inhaler [Spiriva] Spiriva Respimat 2.5 MCG/ACT Spiriva Respimat 2.5 MCG/ACT 09/04/2019 12:00:00 AM EDT 2.0 {puffs} active Spiriva Respimat 2.5 MCG/ACT eCW1 ([facility]) 28 ACTUAT tiotropium 0.0025 MG/ACTUAT Me tered Dose Inhaler [Spiriva] Spiriva Respimat 2.5 MCG/ACT Spiriva Respimat 2.5 MCG/ACT 09/04/2019 12:00:00 AM EDT 2.0 {puffs} suspended Spiriva Respimat 2 .5 MCG/ACT eCW1 ([facility]) 28 ACTUAT tiotropium 0.0025 MG/ACTUAT Me tered Dose Inhaler [Spiriva] Spiriva Respimat 2.5 MCG/ACT Spiriva Respimat 2.5 MCG/ACT 09/04/2019 12:00:00 AM EDT 2.0 {puffs} suspended Spiriva Respimat 2 .5 MCG/ACT eCW1 ([facility]) 28 ACTUAT tiotropium 0.0025 MG/ACTUAT Me tered Dose Inhaler [Spiriva] Spiriva Respimat 2.5 MCG/ACT Spiriva Respimat 2.5 MCG/ACT 09/04/2019 12:00:00 AM EDT 2.0 {puffs} active Spiriva Respimat 2.5 MCG/ACT eCW1 ([facility]) 28 ACTUAT tiotropium 0.0025 MG/ACTUAT Me tered Dose Inhaler [Spiriva] Spiriva Respimat 2.5 MCG/ACT Spiriva Respimat 2.5 MCG/ACT 09/04/2019 12:00:00 AM EDT 2.0 {puffs} active Spiriva Respimat 2.5 MCG/ACT eCW1 ([facility]) 28 ACTUAT tiotropium 0.0025 MG/ACTUAT Me tered Dose Inhaler [Spiriva] Spiriva Respimat 2.5 MCG/ACT Spiriva Respimat 2.5 MCG/ACT 09/04/2019 12:00:00 AM EDT 2.0 {puffs} active Spiriva Respimat 2.5 MCG/ACT eCW1 ([facility]) 28 ACTUAT tiotropium 0.0025 MG/ACTUAT Me tered Dose Inhaler [Spiriva] Spiriva Respimat 2.5 MCG/ACT Spiriva Respimat 2.5 MCG/ACT 09/04/2019 12:00:00 AM EDT 2.0 {puffs} active Spiriva Respimat 2.5 MCG/ACT eCW1 ([facility]) 28 ACTUAT tiotropium 0.0025 MG/ACTUAT Me tered Dose Inhaler [Spiriva] Spiriva Respimat 2.5 MCG/ACT Spiriva Respimat 2.5 MCG/ACT 09/04/2019 12:00:00 AM EDT 2.0 {puffs} active Spiriva Respimat 2.5 MCG/ACT eCW1 ([facility]) 28 ACTUAT tiotropium 0.0025 MG/ACTUAT Me tered Dose Inhaler [Spiriva] Spiriva Respimat 2.5 MCG/ACT Spiriva Respimat 2.5 MCG/ACT 09/04/2019 12:00:00 AM EDT 2.0 {puffs} suspended Spiriva Respimat 2 .5 MCG/ACT eCW1 ([facility]) Morphine Sulfate 15 MG Extended Release Oral Tablet Mo rphine Sulfate ER 15 MG Morphine Sulfate ER 15 MG 09/03/2019 12:00:00 AM EDT active Morphine Sulfate ER 15 MG eCW1 ([facility]) Morphine Sulfate 15 MG Extended Release Oral Tablet Mo rphine Sulfate ER 15 MG Morphine Sulfate ER 15 MG 09/03/2019 12:00:00 AM EDT active Morphine Sulfate ER 15 MG eCW1 ([facility]) Morphine Sulfate 15 MG Extended Release Oral Tablet Mo rphine Sulfate ER 15 MG Morphine Sulfate ER 15 MG 09/03/2019 12:00:00 AM EDT active Morphine Sulfate ER 15 MG eCW1 ([facility]) Morphine Sulfate 15 MG Extended Release Oral Tablet Mo rphine Sulfate ER 15 MG Morphine Sulfate ER 15 MG 09/03/2019 12:00:00 AM EDT active Morphine Sulfate ER 15 MG eCW1 ([facility]) Morphine Sulfate 15 MG Extended Release Oral Tablet Mo rphine Sulfate ER 15 MG Morphine Sulfate ER 15 MG 09/03/2019 12:00:00 AM EDT active Morphine Sulfate ER 15 MG eCW1 ([facility]) Morphine Sulfate 15 MG Extended Release Oral Tablet Mo rphine Sulfate ER 15 MG Morphine Sulfate ER 15 MG 09/03/2019 12:00:00 AM EDT active Morphine Sulfate ER 15 MG eCW1 ([facility]) Morphine Sulfate 15 MG Extended Release Oral Tablet Mo rphine Sulfate ER 15 MG Morphine Sulfate ER 15 MG 09/03/2019 12:00:00 AM EDT active Morphine Sulfate ER 15 MG eCW1 ([facility]) Morphine Sulfate 15 MG Extended Release Oral Tablet Mo rphine Sulfate ER 15 MG Morphine Sulfate ER 15 MG 09/03/2019 12:00:00 AM EDT active Morphine Sulfate ER 15 MG eCW1 ([facility]) Morphine Sulfate 15 MG Extended Release Oral Tablet Mo rphine Sulfate ER 15 MG Morphine Sulfate ER 15 MG 09/03/2019 12:00:00 AM EDT active Morphine Sulfate ER 15 MG eCW1 ([facility]) Morphine Sulfate 15 MG Extended Release Oral Tablet Mo rphine Sulfate ER 15 MG Morphine Sulfate ER 15 MG 09/03/2019 12:00:00 AM EDT active Morphine Sulfate ER 15 MG eCW1 ([facility]) 50 mg 08/27/2019 12:00:00 AM EDT tablet [...] 12:00:00 AM EDT completed [facility] ([facility], ) 200 ACTUAT Albuterol 0.09 MG/ACTUAT Mete red Dose Inhaler [Ventolin] Ventolin HFA 108 (90 Base) MCG/ACT Ventolin HFA 108 (90 Base) MCG/ACT 08/25/2019 12:00:00 AM EDT 1.0 {puff_as_needed} suspended Ventolin HFA 108 (90 Base) MCG/ACT eCW1 ([facility]) tiotropium 0.018 MG/ACTUAT Inhalant Powder [Spiriva] S piriva HandiHaler 18 MCG Spiriva HandiHaler 18 MCG 08/25/2019 12:00:00 AM EDT active Spiriva HandiHaler 18 MCG eCW1 ([facility]) 200 ACTUAT Albuterol 0.09 MG/ACTUAT Mete red Dose Inhaler [Ventolin] Ventolin HFA 108 (90 Base) MCG/ACT Ventolin HFA 108 (90 Base) MCG/ACT 08/25/2019 12:00:00 AM EDT 1.0 {puff_as_needed} suspended Ventolin HFA 108 (90 Base) MCG/ACT eCW1 ([facility]) 200 ACTUAT Albuterol 0.09 MG/ACTUAT Mete red Dose Inhaler [Ventolin] Ventolin HFA 108 (90 Base) MCG/ACT Ventolin HFA 108 (90 Base) MCG/ACT 08/25/2019 12:00:00 AM EDT 1.0 {puff_as_needed} suspended Ventolin HFA 108 (90 Base) MCG/ACT eCW1 ([facility]) 200 ACTUAT Albuterol 0.09 MG/ACTUAT Mete red Dose Inhaler [Ventolin] Ventolin HFA 108 (90 Base) MCG/ACT Ventolin HFA 108 (90 Base) MCG/ACT 08/25/2019 12:00:00 AM EDT 1.0 {puff_as_needed} suspended Ventolin HFA 108 (90 Base) MCG/ACT eCW1 ([facility]) tiotropium 0.018 MG/ACTUAT Inhalant Powder [Spiriva] S piriva HandiHaler 18 MCG Spiriva HandiHaler 18 MCG 08/25/2019 12:00:00 AM EDT active Spiriva HandiHaler 18 MCG eCW1 ([facility]) 200 ACTUAT Albuterol 0.09 MG/ACTUAT Mete red Dose Inhaler [Ventolin] Ventolin HFA 108 (90 Base) MCG/ACT Ventolin HFA 108 (90 Base) MCG/ACT 08/25/2019 12:00:00 AM EDT 1.0 {puff_as_needed} active Jovani tolin HFA 108 (90 Base) MCG/ACT eCW1 ([facility]) tiotropium 0.018 MG/ACTUAT Inhalant Powder [Spiriva] S piriva HandiHaler 18 MCG Spiriva HandiHaler 18 MCG 08/25/2019 12:00:00 AM EDT active Spiriva HandiHaler 18 MCG eCW1 ([facility]) 200 ACTUAT Albuterol 0.09 MG/ACTUAT Mete red Dose Inhaler [Ventolin] Ventolin HFA 108 (90 Base) MCG/ACT Ventolin HFA 108 (90 Base) MCG/ACT 08/25/2019 12:00:00 AM EDT 1.0 {puff_as_needed} suspended Ventolin HFA 108 (90 Base) MCG/ACT eCW1 ([facility]) 200 ACTUAT Albuterol 0.09 MG/ACTUAT Mete red Dose Inhaler [Ventolin] Ventolin HFA 108 (90 Base) MCG/ACT Ventolin HFA 108 (90 Base) MCG/ACT 08/25/2019 12:00:00 AM EDT 1.0 {puff_as_needed} active Jovani tolin HFA 108 (90 Base) MCG/ACT eCW1 ([facility]) tiotropium 0.018 MG/ACTUAT Inhalant Powder [Spiriva] S piriva HandiHaler 18 MCG Spiriva HandiHaler 18 MCG 08/25/2019 12:00:00 AM EDT active Spiriva HandiHaler 18 MCG eCW1 ([facility]) 200 ACTUAT Albuterol 0.09 MG/ACTUAT Mete red Dose Inhaler [Ventolin] Ventolin HFA 108 (90 Base) MCG/ACT Ventolin HFA 108 (90 Base) MCG/ACT 08/25/2019 12:00:00 AM EDT 1.0 {puff_as_needed} active Jovani tolin HFA 108 (90 Base) MCG/ACT eCW1 ([facility]) tiotropium 0.018 MG/ACTUAT Inhalant Powder [Spiriva] S piriva HandiHaler 18 MCG Spiriva HandiHaler 18 MCG 08/25/2019 12:00:00 AM EDT active Spiriva HandiHaler 18 MCG eCW1 ([facility]) 200 ACTUAT Albuterol 0.09 MG/ACTUAT Mete red Dose Inhaler [Ventolin] Ventolin HFA 108 (90 Base) MCG/ACT Ventolin HFA 108 (90 Base) MCG/ACT 08/25/2019 12:00:00 AM EDT 1.0 {puff_as_needed} active Jovani tolin HFA 108 (90 Base) MCG/ACT eCW1 ([facility]) 200 ACTUAT Albuterol 0.09 MG/ACTUAT Mete red Dose Inhaler [Ventolin] Ventolin HFA 108 (90 Base) MCG/ACT Ventolin HFA 108 (90 Base) MCG/ACT 08/25/2019 12:00:00 AM EDT 1.0 {puff_as_needed} suspended Ventolin HFA 108 (90 Base) MCG/ACT eCW1 ([facility]) 200 ACTUAT Albuterol 0.09 MG/ACTUAT Mete red Dose Inhaler [Ventolin] Ventolin HFA 108 (90 Base) MCG/ACT Ventolin HFA 108 (90 Base) MCG/ACT 08/25/2019 12:00:00 AM EDT 1.0 {puff_as_needed} suspended Ventolin HFA 108 (90 Base) MCG/ACT eCW1 ([facility]) 200 ACTUAT Albuterol 0.09 MG/ACTUAT Mete red Dose Inhaler [Ventolin] Ventolin HFA 108 (90 Base) MCG/ACT Ventolin HFA 108 (90 Base) MCG/ACT 08/25/2019 12:00:00 AM EDT 1.0 {puff_as_needed} suspended Ventolin HFA 108 (90 Base) MCG/ACT eCW1 ([facility]) 200 ACTUAT Albuterol 0.09 MG/ACTUAT Mete red Dose Inhaler [Ventolin] Ventolin HFA 108 (90 Base) MCG/ACT Ventolin HFA 108 (90 Base) MCG/ACT 08/25/2019 12:00:00 AM EDT 1.0 {puff_as_needed} suspended Ventolin HFA 108 (90 Base) MCG/ACT eCW1 ([facility]) 200 ACTUAT Albuterol 0.09 MG/ACTUAT Mete red Dose Inhaler [Ventolin] Ventolin HFA 108 (90 Base) MCG/ACT Ventolin HFA 108 (90 Base) MCG/ACT 08/25/2019 12:00:00 AM EDT 1.0 {puff_as_needed} suspended Ventolin HFA 108 (90 Base) MCG/ACT eCW1 ([facility]) 200 ACTUAT Albuterol 0.09 MG/ACTUAT Mete red Dose Inhaler [Ventolin] Ventolin HFA 108 (90 Base) MCG/ACT Ventolin HFA 108 (90 Base) MCG/ACT 08/25/2019 12:00:00 AM EDT 1.0 {puff_as_needed} suspended Ventolin HFA 108 (90 Base) MCG/ACT eCW1 ([facility]) 200 ACTUAT Albuterol 0.09 MG/ACTUAT Mete red Dose Inhaler [Ventolin] Ventolin HFA 108 (90 Base) MCG/ACT Ventolin HFA 108 (90 Base) MCG/ACT 08/25/2019 12:00:00 AM EDT 1.0 {puff_as_needed} active Jovani tolin HFA 108 (90 Base) MCG/ACT eCW1 ([facility]) 200 ACTUAT Albuterol 0.09 MG/ACTUAT Mete red Dose Inhaler [Ventolin] Ventolin HFA 108 (90 Base) MCG/ACT Ventolin HFA 108 (90 Base) MCG/ACT 08/25/2019 12:00:00 AM EDT 1.0 {puff_as_needed} suspended Ventolin HFA 108 (90 Base) MCG/ACT eCW1 ([facility]) tiotropium 0.018 MG/ACTUAT Inhalant Powder [Spiriva] S piriva HandiHaler 18 MCG Spiriva HandiHaler 18 MCG 08/25/2019 12:00:00 AM EDT active Spiriva HandiHaler 18 MCG eCW1 ([facility]) 200 ACTUAT Albuterol 0.09 MG/ACTUAT Mete red Dose Inhaler [Ventolin] Ventolin HFA 108 (90 Base) MCG/ACT Ventolin HFA 108 (90 Base) MCG/ACT 08/25/2019 12:00:00 AM EDT 1.0 {puff_as_needed} suspended Ventolin HFA 108 (90 Base) MCG/ACT eCW1 ([facility]) 200 ACTUAT Albuterol 0.09 MG/ACTUAT Mete red Dose Inhaler [Ventolin] Ventolin HFA 108 (90 Base) MCG/ACT Ventolin HFA 108 (90 Base) MCG/ACT 08/25/2019 12:00:00 AM EDT 1.0 {puff_as_needed} active Jovani tolin HFA 108 (90 Base) MCG/ACT eCW1 ([facility]) 200 ACTUAT Albuterol 0.09 MG/ACTUAT Mete red Dose Inhaler [Ventolin] Ventolin HFA 108 (90 Base) MCG/ACT Ventolin HFA 108 (90 Base) MCG/ACT 08/25/2019 12:00:00 AM EDT 1.0 {puff_as_needed} active Jovani tolin HFA 108 (90 Base) MCG/ACT eCW1 ([facility]) 200 ACTUAT Albuterol 0.09 MG/ACTUAT Mete red Dose Inhaler [Ventolin] Ventolin HFA 108 (90 Base) MCG/ACT Ventolin HFA 108 (90 Base) MCG/ACT 08/25/2019 12:00:00 AM EDT 1.0 {puff_as_needed} suspended Ventolin HFA 108 (90 Base) MCG/ACT eCW1 ([facility]) 200 ACTUAT Albuterol 0.09 MG/ACTUAT Mete red Dose Inhaler [Ventolin] Ventolin HFA 108 (90 Base) MCG/ACT Ventolin HFA 108 (90 Base) MCG/ACT 08/25/2019 12:00:00 AM EDT 1.0 {puff_as_needed} suspended Ventolin HFA 108 (90 Base) MCG/ACT eCW1 ([facility]) 200 ACTUAT Albuterol 0.09 MG/ACTUAT Mete red Dose Inhaler [Ventolin] Ventolin HFA 108 (90 Base) MCG/ACT Ventolin HFA 108 (90 Base) MCG/ACT 08/25/2019 12:00:00 AM EDT 1.0 {puff_as_needed} suspended Ventolin HFA 108 (90 Base) MCG/ACT eCW1 ([facility]) 200 ACTUAT Albuterol 0.09 MG/ACTUAT Mete red Dose Inhaler [Ventolin] Ventolin HFA 108 (90 Base) MCG/ACT Ventolin HFA 108 (90 Base) MCG/ACT 08/25/2019 12:00:00 AM EDT 1.0 {puff_as_needed} suspended Ventolin HFA 108 (90 Base) MCG/ACT eCW1 ([facility]) 200 ACTUAT Albuterol 0.09 MG/ACTUAT Mete red Dose Inhaler [Ventolin] Ventolin HFA 108 (90 Base) MCG/ACT Ventolin HFA 108 (90 Base) MCG/ACT 08/25/2019 12:00:00 AM EDT 1.0 {puff_as_needed} suspended Ventolin HFA 108 (90 Base) MCG/ACT eCW1 ([facility]) 200 ACTUAT Albuterol 0.09 MG/ACTUAT Mete red Dose Inhaler [Ventolin] Ventolin HFA 108 (90 Base) MCG/ACT Ventolin HFA 108 (90 Base) MCG/ACT 08/25/2019 12:00:00 AM EDT 1.0 {puff_as_needed} suspended Ventolin HFA 108 (90 Base) MCG/ACT eCW1 ([facility]) 200 ACTUAT Albuterol 0.09 MG/ACTUAT Mete red Dose Inhaler [Ventolin] Ventolin HFA 108 (90 Base) MCG/ACT Ventolin HFA 108 (90 Base) MCG/ACT 08/25/2019 12:00:00 AM EDT 1.0 {puff_as_needed} suspended Ventolin HFA 108 (90 Base) MCG/ACT eCW1 ([facility]) tiotropium 0.018 MG/ACTUAT Inhalant Powder [Spiriva] S piriva HandiHaler 18 MCG Spiriva HandiHaler 18 MCG 08/25/2019 12:00:00 AM EDT active Spiriva HandiHaler 18 MCG eCW1 ([facility]) 200 ACTUAT Albuterol 0.09 MG/ACTUAT Mete red Dose Inhaler [Ventolin] Ventolin HFA 108 (90 Base) MCG/ACT Ventolin HFA 108 (90 Base) MCG/ACT 08/25/2019 12:00:00 AM EDT 1.0 {puff_as_needed} suspended Ventolin HFA 108 (90 Base) MCG/ACT eCW1 ([facility]) tiotropium 0.018 MG/ACTUAT Inhalant Powder [Spiriva] S piriva HandiHaler 18 MCG Spiriva HandiHaler 18 MCG 08/25/2019 12:00:00 AM EDT active Spiriva HandiHaler 18 MCG eCW1 ([facility]) 200 ACTUAT Albuterol 0.09 MG/ACTUAT Mete red Dose Inhaler [Ventolin] Ventolin HFA 108 (90 Base) MCG/ACT Ventolin HFA 108 (90 Base) MCG/ACT 08/25/2019 12:00:00 AM EDT 1.0 {puff_as_needed} active Jovani tolin HFA 108 (90 Base) MCG/ACT eCW1 ([facility]) 10-325 mg 08/15/2019 12:00:00 AM EDT tablet [...] {tablet_as_needed} active Percocet 10-3 25 MG eCW1 ([facility]) Acetaminophen 325 MG / Oxycodone Hydroch loride 10 MG Oral Tablet [Percocet] Percocet 10-325 MG Percocet 10-325 MG 08/07/2019 12:00:00 AM EDT 1.0 {tablet_as_needed} suspended Percocet 10 -325 MG eCW1 ([facility]) Acetaminophen 325 MG / Oxycodone Hydroch loride 10 MG Oral Tablet [Percocet] Percocet 10-325 MG Percocet 10-325 MG 08/07/2019 12:00:00 AM EDT 1.0 {tablet_as_needed} suspended Percocet 10 -325 MG eCW1 ([facility]) Acetaminophen 325 MG / Oxycodone Hydroch loride 10 MG Oral Tablet [Percocet] Percocet 10-325 MG Percocet 10-325 MG 08/07/2019 12:00:00 AM EDT 1.0 {tablet_as_needed} active Percocet 10-3 25 MG eCW1 ([facility]) Acetaminophen 325 MG / Oxycodone Hydroch loride 10 MG Oral Tablet [Percocet] Percocet 10-325 MG Percocet 10-325 MG 08/07/2019 12:00:00 AM EDT 1.0 {tablet_as_needed} suspended Percocet 10 -325 MG eCW1 ([facility]) Acetaminophen 325 MG / Oxycodone Hydroch loride 10 MG Oral Tablet [Percocet] Percocet 10-325 MG Percocet 10-325 MG 08/07/2019 12:00:00 AM EDT 1.0 {tablet_as_needed} suspended Percocet 10 -325 MG eCW1 ([facility]) Acetaminophen 325 MG / Oxycodone Hydroch loride 10 MG Oral Tablet [Percocet] Percocet 10-325 MG Percocet 10-325 MG 08/07/2019 12:00:00 AM EDT 1.0 {tablet_as_needed} active Percocet 10-3 25 MG eCW1 ([facility]) Acetaminophen 325 MG / Oxycodone Hydroch loride 10 MG Oral Tablet [Percocet] Percocet 10-325 MG Percocet 10-325 MG 08/07/2019 12:00:00 AM EDT 1.0 {tablet_as_needed} suspended Percocet 10 -325 MG eCW1 ([facility]) Acetaminophen 325 MG / Oxycodone Hydroch loride 10 MG Oral Tablet [Percocet] Percocet 10-325 MG Percocet 10-325 MG 08/07/2019 12:00:00 AM EDT 1.0 {tablet_as_needed} active Percocet 10-3 25 MG eCW1 ([facility]) Acetaminophen 325 MG / Oxycodone Hydroch loride 10 MG Oral Tablet [Percocet] Percocet 10-325 MG Percocet 10-325 MG 08/07/2019 12:00:00 AM EDT 1.0 {tablet_as_needed} active Percocet 10-3 25 MG eCW1 ([facility]) Acetaminophen 325 MG / Oxycodone Hydroch loride 10 MG Oral Tablet [Percocet] Percocet 10-325 MG Percocet 10-325 MG 08/07/2019 12:00:00 AM EDT 1.0 {tablet_as_needed} active Percocet 10-3 25 MG eCW1 ([facility]) Acetaminophen 325 MG / Oxycodone Hydroch loride 10 MG Oral Tablet [Percocet] Percocet 10-325 MG Percocet 10-325 MG 08/07/2019 12:00:00 AM EDT 1.0 {tablet_as_needed} active Percocet 10-3 25 MG eCW1 ([facility]) Acetaminophen 325 MG / Oxycodone Hydroch loride 10 MG Oral Tablet [Percocet] Percocet 10-325 MG Percocet 10-325 MG 08/07/2019 12:00:00 AM EDT 1.0 {tablet_as_needed} active Percocet 10-3 25 MG eCW1 ([facility]) Acetaminophen 325 MG / Oxycodone Hydroch loride 10 MG Oral Tablet [Percocet] Percocet 10-325 MG Percocet 10-325 MG 08/07/2019 12:00:00 AM EDT 1.0 {tablet_as_needed} suspended Percocet 10 -325 MG eCW1 ([facility]) Acetaminophen 325 MG / Oxycodone Hydroch loride 10 MG Oral Tablet [Percocet] Percocet 10-325 MG Percocet 10-325 MG 08/07/2019 12:00:00 AM EDT 1.0 {tablet_as_needed} suspended Percocet 10 -325 MG eCW1 ([facility]) Acetaminophen 325 MG / Oxycodone Hydroch loride 10 MG Oral Tablet [Percocet] Percocet 10-325 MG Percocet 10-325 MG 08/07/2019 12:00:00 AM EDT 1.0 {tablet_as_needed} suspended Percocet 10 -325 MG eCW1 ([facility]) Acetaminophen 325 MG / Oxycodone Hydroch loride 10 MG Oral Tablet [Percocet] Percocet 10-325 MG Percocet 10-325 MG 08/07/2019 12:00:00 AM EDT 1.0 {tablet_as_needed} active Percocet 10-3 25 MG eCW1 ([facility]) Acetaminophen 325 MG / Oxycodone Hydroch loride 10 MG Oral Tablet [Percocet] Percocet 10-325 MG Percocet 10-325 MG 08/07/2019 12:00:00 AM EDT 1.0 {tablet_as_needed} active Percocet 10-3 25 MG eCW1 ([facility]) Acetaminophen 325 MG / Oxycodone Hydroch loride 10 MG Oral Tablet [Percocet] Percocet 10-325 MG Percocet 10-325 MG 08/07/2019 12:00:00 AM EDT 1.0 {tablet_as_needed} active Percocet 10-3 25 MG eCW1 ([facility]) Acetaminophen 325 MG / Oxycodone Hydroch loride 10 MG Oral Tablet [Percocet] Percocet 10-325 MG Percocet 10-325 MG 08/07/2019 12:00:00 AM EDT 1.0 {tablet_as_needed} active Percocet 10-3 25 MG eCW1 ([facility]) Acetaminophen 325 MG / Oxycodone Hydroch loride 10 MG Oral Tablet [Percocet] Percocet 10-325 MG Percocet 10-325 MG 08/07/2019 12:00:00 AM EDT 1.0 {tablet_as_needed} suspended Percocet 10 -325 MG eCW1 ([facility]) Acetaminophen 325 MG / Oxycodone Hydroch loride 10 MG Oral Tablet [Percocet] Percocet 10-325 MG Percocet 10-325 MG 08/07/2019 12:00:00 AM EDT 1.0 {tablet_as_needed} active Percocet 10-3 25 MG eCW1 ([facility]) Acetaminophen 325 MG / Oxycodone Hydroch loride 10 MG Oral Tablet [Percocet] Percocet 10-325 MG Percocet 10-325 MG 08/07/2019 12:00:00 AM EDT 1.0 {tablet_as_needed} active Percocet 10-3 25 MG eCW1 ([facility]) Acetaminophen 325 MG / Oxycodone Hydroch loride 10 MG Oral Tablet [Percocet] Percocet 10-325 MG Percocet 10-325 MG 08/07/2019 12:00:00 AM EDT 1.0 {tablet_as_needed} suspended Percocet 10 -325 MG eCW1 ([facility]) Acetaminophen 325 MG / Oxycodone Hydroch loride 10 MG Oral Tablet [Percocet] Percocet 10-325 MG Percocet 10-325 MG 08/07/2019 12:00:00 AM EDT 1.0 {tablet_as_needed} suspended Percocet 10 -325 MG eCW1 ([facility]) Acetaminophen 325 MG / Oxycodone Hydroch loride 10 MG Oral Tablet [Percocet] Percocet 10-325 MG Percocet 10-325 MG 08/07/2019 12:00:00 AM EDT 1.0 {tablet_as_needed} suspended Percocet 10 -325 MG eCW1 ([facility]) Acetaminophen 325 MG / Oxycodone Hydroch loride 10 MG Oral Tablet [Percocet] Percocet 10-325 MG Percocet 10-325 MG 08/07/2019 12:00:00 AM EDT 1.0 {tablet_as_needed} active Percocet 10-3 25 MG eCW1 ([facility]) Acetaminophen 325 MG / Oxycodone Hydroch loride 10 MG Oral Tablet [Percocet] Percocet 10-325 MG Percocet 10-325 MG 08/07/2019 12:00:00 AM EDT 1.0 {tablet_as_needed} active Percocet 10-3 25 MG eCW1 ([facility]) Acetaminophen 325 MG / Oxycodone Hydroch loride 10 MG Oral Tablet [Percocet] Percocet 10-325 MG Percocet 10-325 MG 08/07/2019 12:00:00 AM EDT 1.0 {tablet_as_needed} active Percocet 10-3 25 MG eCW1 ([facility]) 15 mg 08/06/2019 12:00:00 AM EDT tablet [...] ac tive Propranolol HCl 10 MG eCW1 ([facility]) Chlorthalidone 25 MG Oral Tablet Chlorthalidone 25 MG 2019 12:00:00 AM EDT 1.0 {tablet_in_the_morning_with_food} active Chlorthalidone 25 MG eCW1 ([facility]) 10 mg 08/04/2019 12:00:00 AM EDT tablet 60 TAKE ONE TABLET BY MOUTH TWICE A DAY TAKE ONE TABLET BY MOUTH TWICE A DAY SOLD: 08/05/2019 [facility] Morphine Sulfate 15 MG Extended Release Oral Tablet Mo rphine Sulfate ER 15 MG Morphine Sulfate ER 15 MG 07/28/2019 12:00:00 AM EDT active Morphine Sulfate ER 15 MG eCW1 ([facility]) Morphine Sulfate 15 MG Extended Release Oral Tablet Mo rphine Sulfate ER 15 MG Morphine Sulfate ER 15 MG 07/28/2019 12:00:00 AM EDT active Morphine Sulfate ER 15 MG eCW1 ([facility]) Morphine Sulfate 15 MG Extended Release Oral Tablet Mo rphine Sulfate ER 15 MG Morphine Sulfate ER 15 MG 07/28/2019 12:00:00 AM EDT active Morphine Sulfate ER 15 MG eCW1 ([facility]) Morphine Sulfate 15 MG Extended Release Oral Tablet Mo rphine Sulfate ER 15 MG Morphine Sulfate ER 15 MG 07/28/2019 12:00:00 AM EDT active Morphine Sulfate ER 15 MG eCW1 ([facility]) Morphine Sulfate 15 MG Extended Release Oral Tablet Mo rphine Sulfate ER 15 MG Morphine Sulfate ER 15 MG 07/28/2019 12:00:00 AM EDT active Morphine Sulfate ER 15 MG eCW1 ([facility]) 300 mg 07/28/2019 12:00:00 AM EDT capsule 60 TAKE ONE CAPSULE BY MOUTH TWICE A DAY, MAXIMUM DAILY DOSE = 2 CAPSULES TAKE ONE CAPSULE BY MOUTH TWICE A DAY, MAXIMUM DAILY DOSE = 2 CAPSULES SOLD: 08/26/2019 [facility] Morphine Sulfate 15 MG Extended Release Oral Tablet Mo rphine Sulfate ER 15 MG Morphine Sulfate ER 15 MG 07/28/2019 12:00:00 AM EDT active Morphine Sulfate ER 15 MG eCW1 ([facility]) Morphine Sulfate 15 MG Extended Release Oral Tablet Mo rphine Sulfate ER 15 MG Morphine Sulfate ER 15 MG 07/28/2019 12:00:00 AM EDT active Morphine Sulfate ER 15 MG eCW1 ([facility]) Morphine Sulfate 15 MG Extended Release Oral Tablet Mo rphine Sulfate ER 15 MG Morphine Sulfate ER 15 MG 07/28/2019 12:00:00 AM EDT active Morphine Sulfate ER 15 MG eCW1 ([facility]) 300 mg 07/28/2019 12:00:00 AM EDT capsule [...] active Morphine Sulfate ER 15 MG eCW1 ([facility]) Morphine Sulfate 15 MG Extended Release Oral Tablet Mo rphine Sulfate ER 15 MG Morphine Sulfate ER 15 MG 07/28/2019 12:00:00 AM EDT active Morphine Sulfate ER 15 MG eCW1 ([facility]) 10-325 mg 07/17/2019 12:00:00 AM EDT tablet [...] EDT active 1 tablet as needed eCW1 ([facility]) Amitriptyline Hydrochloride 25 MG Oral [...] active Morphine Sulfate ER 15 MG eCW1 ([facility]) Morphine Sulfate 15 MG Extended Release Oral Tablet Mo rphine Sulfate ER 15 MG Morphine Sulfate ER 15 MG 07/07/2019 12:00:00 AM EDT active Morphine Sulfate ER 15 MG eCW1 ([facility]) Morphine Sulfate 15 MG Extended Release Oral Tablet Mo rphine Sulfate ER 15 MG Morphine Sulfate ER 15 MG 07/07/2019 12:00:00 AM EDT active 1 to 2 as directed eCW1 ([facility]) 15 mg 07/07/2019 12:00:00 AM EDT tablet extended release 90 TAKE 1 TABLET BY MOUTH EVERY MORNING AND 2 TABLETS AT BEDTIME, MAXIMUM DAILY DOSE = 3 TABLETS TAKE 1 TABLET BY MOUTH EVERY MORNING AND 2 TABLETS AT BEDTIME, MAXIMUM DAILY DOSE = 3 TABLETS SOLD: 07/08/2019 [facility] Morphine Sulfate 15 MG Extended Release Oral Tablet Mo rphine Sulfate ER 15 MG Morphine Sulfate ER 15 MG 07/07/2019 12:00:00 AM EDT active Morphine Sulfate ER 15 MG eCW1 ([facility]) 100,000 unit/gram 06/25/2019 12:00:00 AM EDT cream [...] {tablet_as_needed} active Percocet 10-3 25 MG eCW1 ([facility]) Acetaminophen 325 MG / Oxycodone Hydroch loride 10 MG Oral Tablet [Percocet] Percocet 10-325 MG Percocet 10-325 MG 06/17/2019 12:00:00 AM EDT 1.0 {tablet_as_needed} active Percocet 10-3 25 MG eCW1 ([facility]) Acetaminophen 325 MG / Oxycodone Hydroch loride 10 MG Oral Tablet [Percocet] Percocet 10-325 MG Percocet 10-325 MG 06/17/2019 12:00:00 AM EDT active 1 tablet as needed eCW1 ([facility]) Acetaminophen 325 MG / Oxycodone Hydroch loride 10 MG Oral Tablet [Percocet] Percocet 10-325 MG Percocet 10-325 MG 06/17/2019 12:00:00 AM EDT 1.0 {tablet_as_needed} active Percocet 10-3 25 MG eCW1 ([facility]) Acetaminophen 325 MG / Oxycodone Hydroch loride 10 MG Oral Tablet [Percocet] Percocet 10-325 MG Percocet 10-325 MG 06/17/2019 12:00:00 AM EDT active 1 tablet as needed eCW1 ([facility]) Acetaminophen 325 MG / Oxycodone Hydroch loride 10 MG Oral Tablet [Percocet] Percocet 10-325 MG Percocet 10-325 MG 06/17/2019 12:00:00 AM EDT 1.0 {tablet_as_needed} active Percocet 10-3 25 MG eCW1 ([facility]) Acetaminophen 325 MG / Oxycodone Hydroch loride 10 MG Oral Tablet [Percocet] Percocet 10-325 MG Percocet 10-325 MG 06/17/2019 12:00:00 AM EDT 1.0 {tablet_as_needed} active Percocet 10-3 25 MG eCW1 ([facility]) Acetaminophen 325 MG / Oxycodone Hydroch loride 10 MG Oral Tablet [Percocet] Percocet 10-325 MG Percocet 10-325 MG 06/17/2019 12:00:00 AM EDT 1.0 {tablet_as_needed} active Percocet 10-3 25 MG eCW1 ([facility]) 5 mg 06/11/2019 12:00:00 AM EDT tablet [...] active 1 to 2 as directed eCW1 ([facility]) Morphine Sulfate 15 MG Extended Release Oral Tablet Mo rphine Sulfate ER 15 MG Morphine Sulfate ER 15 MG 06/03/2019 12:00:00 AM EDT active 1 to 2 as directed eCW1 ([facility]) 40 mg 06/03/2019 12:00:00 AM EDT tablet [...] active 1 to 2 as directed eCW1 ([facility]) 350 mg 05/31/2019 12:00:00 AM EDT tablet [...] AM EDT active 1 tablet as needed eC ([facility]) Acetaminophen 325 MG / Oxycodone Hydroch loride 10 MG Oral Tablet [Percocet] Percocet 10-325 MG Percocet 10-325 MG 05/18/2019 12:00:00 AM EDT active 1 tablet as needed eC1 ([facility]) Acetaminophen 325 MG / Oxycodone Hydroch loride 10 MG Oral Tablet [Percocet] Percocet 10-325 MG Percocet 10-325 MG 05/18/2019 12:00:00 AM EDT active 1 tablet as needed eC ([facility]) 800 mg 05/16/2019 12:00:00 AM EDT [...] active 1 to 2 as directed eCW1 ([facility]) Morphine Sulfate 15 MG Extended Release Oral Tablet Mo rphine Sulfate ER 15 MG Morphine Sulfate ER 15 MG 05/04/2019 12:00:00 AM EDT active 1 to 2 as directed eCW1 ([facility]) Morphine Sulfate 15 MG Extended Release Oral Tablet Mo rphine Sulfate ER 15 MG Morphine Sulfate ER 15 MG 05/04/2019 12:00:00 AM EDT active 1 to 2 as directed eCW1 ([facility]) 100,000 unit/gram 04/30/2019 12:00:00 AM EDT cream [...] EDT active 1 tablet as needed eCW1 ([facility]) 10-325 mg 04/21/2019 12:00:00 AM EDT [...] active 1 to 2 as directed eCW1 ([facility]) Morphine Sulfate 15 MG Extended Release Oral Tablet Mo rphine Sulfate ER 15 MG Morphine Sulfate ER 15 MG 04/08/2019 12:00:00 AM EST active 1 to 2 as directed eCW1 ([facility]) Amitriptyline Hydrochloride 25 MG Oral Tablet AMITRIPTYLINE [...] 10 days, Max Daily Dose: 20 mg [facility] 20 mg 03/27/2019 12:00:00 AM EST [...] MOUTH THREE TIMES A DAY SOLD: 03/28/2019 [facility] 100,000 unit/gram 03/27/2019 12:00:00 AM EST cream 30 APPLY TO [place]ASH [place] GROIN TWICE A DAY APPLY TO [place] GROIN TWICE A DAY SOLD: 03/27/2019 [facility] 300 mg 03/27/2019 12:00:00 AM EST capsule 270 TAKE ONE CAPSULE BY MOUTH THREE TIMES A DAY TAKE ONE CAPSULE BY MOUTH THREE TIMES A DAY SOLD: 06/30/2019 [facility] atorvastatin 40 MG Oral Tablet Atorvastatin Calcium 40 MG Atorvastatin Calcium 40 MG 03/26/2019 12:00:00 AM EST active 1 tablet eCW1 ([facility]) atorvastatin 40 MG Oral Tablet Atorvastatin Calcium 40 MG Atorvastatin Calcium 40 MG 03/26/2019 12:00:00 AM EST 1.0 {tablet} activ e Atorvastatin Calcium 40 MG eCW1 ([facility]) atorvastatin 40 MG Oral Tablet Atorvastatin Calcium 40 MG Atorvastatin Calcium 40 MG 03/26/2019 12:00:00 AM EST active 1 tablet eCW1 ([facility]) atorvastatin 40 MG Oral Tablet Atorvastatin Calcium 40 MG Atorvastatin Calcium 40 MG 03/26/2019 12:00:00 AM EST 1.0 {tablet} activ e Atorvastatin Calcium 40 MG eCW1 ([facility]) atorvastatin 40 MG Oral Tablet Atorvastatin Calcium 40 MG Atorvastatin Calcium 40 MG 03/26/2019 12:00:00 AM EST 1.0 {tablet} activ e Atorvastatin Calcium 40 MG eCW1 ([facility]) atorvastatin 40 MG Oral Tablet Atorvastatin Calcium 40 MG Atorvastatin Calcium 40 MG 03/26/2019 12:00:00 AM EST 1.0 {tablet} activ e Atorvastatin Calcium 40 MG eCW1 ([facility]) atorvastatin 40 MG Oral Tablet Atorvastatin Calcium 40 MG Atorvastatin Calcium 40 MG 03/26/2019 12:00:00 AM EST 1.0 {tablet} activ e Atorvastatin Calcium 40 MG eCW1 ([facility]) atorvastatin 40 MG Oral Tablet Atorvastatin Calcium 40 MG Atorvastatin Calcium 40 MG 03/26/2019 12:00:00 AM EST 1.0 {tablet} activ e Atorvastatin Calcium 40 MG eCW1 ([facility]) atorvastatin 40 MG Oral Tablet Atorvastatin Calcium 40 MG Atorvastatin Calcium 40 MG 03/26/2019 12:00:00 AM EST 1.0 {tablet} activ e Atorvastatin Calcium 40 MG eCW1 ([facility]) atorvastatin 40 MG Oral Tablet Atorvastatin Calcium 40 MG Atorvastatin Calcium 40 MG 03/26/2019 12:00:00 AM EST 1.0 {tablet} activ e Atorvastatin Calcium 40 MG eCW1 ([facility]) atorvastatin 40 MG Oral Tablet Atorvastatin Calcium 40 MG Atorvastatin Calcium 40 MG 03/26/2019 12:00:00 AM EST 1.0 {tablet} activ e Atorvastatin Calcium 40 MG eCW1 ([facility]) atorvastatin 40 MG Oral Tablet Atorvastatin Calcium 40 MG Atorvastatin Calcium 40 MG 03/26/2019 12:00:00 AM EST 1.0 {tablet} activ e Atorvastatin Calcium 40 MG eCW1 ([facility]) atorvastatin 40 MG Oral Tablet Atorvastatin Calcium 40 MG Atorvastatin Calcium 40 MG 03/26/2019 12:00:00 AM EST 1.0 {tablet} activ e Atorvastatin Calcium 40 MG eCW1 ([facility]) atorvastatin 40 MG Oral Tablet Atorvastatin Calcium 40 MG Atorvastatin Calcium 40 MG 03/26/2019 12:00:00 AM EST 1.0 {tablet} activ e Atorvastatin Calcium 40 MG eCW1 ([facility]) atorvastatin 40 MG Oral Tablet Atorvastatin Calcium 40 MG Atorvastatin Calcium 40 MG 03/26/2019 12:00:00 AM EST 1.0 {tablet} activ e Atorvastatin Calcium 40 MG eCW1 ([facility]) atorvastatin 40 MG Oral Tablet Atorvastatin Calcium 40 MG Atorvastatin Calcium 40 MG 03/26/2019 12:00:00 AM EST 1.0 {tablet} activ e Atorvastatin Calcium 40 MG eCW1 ([facility]) atorvastatin 40 MG Oral Tablet Atorvastatin Calcium 40 MG Atorvastatin Calcium 40 MG 03/26/2019 12:00:00 AM EST 1.0 {tablet} activ e Atorvastatin Calcium 40 MG eCW1 ([facility]) atorvastatin 40 MG Oral Tablet Atorvastatin Calcium 40 MG Atorvastatin Calcium 40 MG 03/26/2019 12:00:00 AM EST 1.0 {tablet} activ e Atorvastatin Calcium 40 MG eCW1 ([facility]) atorvastatin 40 MG Oral Tablet Atorvastatin Calcium 40 MG Atorvastatin Calcium 40 MG 03/26/2019 12:00:00 AM EST 1.0 {tablet} activ e Atorvastatin Calcium 40 MG eCW1 ([facility]) atorvastatin 40 MG Oral Tablet Atorvastatin Calcium 40 MG Atorvastatin Calcium 40 MG 03/26/2019 12:00:00 AM EST 1.0 {tablet} activ e Atorvastatin Calcium 40 MG eCW1 ([facility]) atorvastatin 40 MG Oral Tablet Atorvastatin Calcium 40 MG Atorvastatin Calcium 40 MG 03/26/2019 12:00:00 AM EST 1.0 {tablet} activ e Atorvastatin Calcium 40 MG eCW1 ([facility]) atorvastatin 40 MG Oral Tablet Atorvastatin Calcium 40 MG Atorvastatin Calcium 40 MG 03/26/2019 12:00:00 AM EST 1.0 {tablet} activ e Atorvastatin Calcium 40 MG eCW1 ([facility]) Ergocalciferol 58541 UNT Oral Capsule Vi tamin D (Ergocalciferol) 1.25 MG (81931 UT) Oral Capsule (ERGOCALCIFEROL) Vitamin D (Ergocalciferol) 1.25 MG (5000 0 UT) Oral Capsule (ERGOCALCIFEROL) 03/26/2019 12:00:00 AM EST active [facility] Losartan Potassium 50 MG Oral Tablet [place] Potassium 50 MG Oral Tablet (COZAAR) Losartan Potassium 50 MG Oral Tablet (COZAAR) 03/26/19 12:00:00 AM EST [facility] atorvastatin 40 MG Oral Tablet Atorvastatin Calcium 40 MG Oral Tablet (LIPITOR) Atorvastatin Calcium 40 MG Oral Tablet (LIPITOR) 03/26/2019 12:00:00 AM EST [facility] atorvastatin 40 MG Oral Tablet Atorvastatin Calcium 40 MG Atorvastatin Calcium 40 MG 03/26/2019 12:00:00 AM EST active 1 tablet eCW1 ([facility]) atorvastatin 40 MG Oral Tablet Atorvastatin Calcium 40 MG Atorvastatin Calcium 40 MG 03/26/2019 12:00:00 AM EST 1.0 {tablet} activ e Atorvastatin Calcium 40 MG eCW1 ([facility]) Nystatin 400852 UNT/ML Topical Cream Nystatin [id number] U NIT/GM Nystatin [id number] UNIT/GM 03/26/2019 12:00:00 AM EST active 1 application 2g eCW1 ([facility]) atorvastatin 40 MG Oral Tablet Atorvastatin Calcium 40 MG Atorvastatin Calcium 40 MG 03/26/2019 12:00:00 AM EST 1.0 {tablet} activ e Atorvastatin Calcium 40 MG eCW1 ([facility]) atorvastatin 40 MG Oral Tablet Atorvastatin Calcium 40 MG Atorvastatin Calcium 40 MG 03/26/2019 12:00:00 AM EST 1.0 {tablet} activ e Atorvastatin Calcium 40 MG eCW1 ([facility]) atorvastatin 40 MG Oral Tablet Atorvastatin Calcium 40 MG Atorvastatin Calcium 40 MG 03/26/2019 12:00:00 AM EST active 1 tablet eCW1 ([facility]) atorvastatin 40 MG Oral Tablet Atorvastatin Calcium 40 MG Atorvastatin Calcium 40 MG 03/26/2019 12:00:00 AM EST 1.0 {tablet} activ e Atorvastatin Calcium 40 MG eCW1 ([facility]) atorvastatin 40 MG Oral Tablet Atorvastatin Calcium 40 MG Atorvastatin Calcium 40 MG 03/26/2019 12:00:00 AM EST 1.0 {tablet} activ e Atorvastatin Calcium 40 MG eCW1 ([facility]) atorvastatin 40 MG Oral Tablet Atorvastatin Calcium 40 MG Atorvastatin Calcium 40 MG 03/26/2019 12:00:00 AM EST 1.0 {tablet} activ e Atorvastatin Calcium 40 MG eCW1 ([facility]) atorvastatin 40 MG Oral Tablet Atorvastatin Calcium 40 MG Atorvastatin Calcium 40 MG 03/26/2019 12:00:00 AM EST 1.0 {tablet} activ e Atorvastatin Calcium 40 MG eCW1 ([facility]) atorvastatin 40 MG Oral Tablet Atorvastatin Calcium 40 MG Atorvastatin Calcium 40 MG 03/26/2019 12:00:00 AM EST 1.0 {tablet} activ e Atorvastatin Calcium 40 MG eCW1 ([facility]) Nystatin 061851 UNT/ML Topical Cream Nystatin [id number] U NIT/GM Nystatin [id number] UNIT/GM 03/26/2019 12:00:00 AM EST active 1 application 2g eCW1 ([facility]) atorvastatin 40 MG Oral Tablet Atorvastatin Calcium 40 MG Atorvastatin Calcium 40 MG 03/26/2019 12:00:00 AM EST 1.0 {tablet} activ e Atorvastatin Calcium 40 MG eCW1 ([facility]) atorvastatin 40 MG Oral Tablet Atorvastatin Calcium 40 MG Atorvastatin Calcium 40 MG 03/26/2019 12:00:00 AM EST active 1 tablet eCW1 ([facility]) atorvastatin 40 MG Oral Tablet Atorvastatin Calcium 40 MG Atorvastatin Calcium 40 MG 03/26/2019 12:00:00 AM EST 1.0 {tablet} activ e Atorvastatin Calcium 40 MG eCW1 ([facility]) atorvastatin 40 MG Oral Tablet Atorvastatin Calcium 40 MG Atorvastatin Calcium 40 MG 03/26/2019 12:00:00 AM EST 1.0 {tablet} activ e Atorvastatin Calcium 40 MG eCW1 ([facility]) atorvastatin 40 MG Oral Tablet Atorvastatin Calcium 40 MG Atorvastatin Calcium 40 MG 03/26/2019 12:00:00 AM EST 1.0 {tablet} activ e Atorvastatin Calcium 40 MG eCW1 ([facility]) atorvastatin 40 MG Oral Tablet Atorvastatin Calcium 40 MG Atorvastatin Calcium 40 MG 03/26/2019 12:00:00 AM EST 1.0 {tablet} activ e Atorvastatin Calcium 40 MG eCW1 ([facility]) atorvastatin 40 MG Oral Tablet Atorvastatin Calcium 40 MG Atorvastatin Calcium 40 MG 03/26/2019 12:00:00 AM EST 1.0 {tablet} activ e Atorvastatin Calcium 40 MG eCW1 ([facility]) atorvastatin 40 MG Oral Tablet Atorvastatin Calcium 40 MG Atorvastatin Calcium 40 MG 03/26/2019 12:00:00 AM EST 1.0 {tablet} activ e Atorvastatin Calcium 40 MG eCW1 ([facility]) atorvastatin 40 MG Oral Tablet Atorvastatin Calcium 40 MG Atorvastatin Calcium 40 MG 03/26/2019 12:00:00 AM EST 1.0 {tablet} activ e Atorvastatin Calcium 40 MG eCW1 ([facility]) atorvastatin 40 MG Oral Tablet Atorvastatin Calcium 40 MG Atorvastatin Calcium 40 MG 03/26/2019 12:00:00 AM EST 1.0 {tablet} activ e Atorvastatin Calcium 40 MG eCW1 ([facility]) Nystatin 668413 UNT/ML Topical Cream Nystatin 276099 U NIT/GM Nystatin 241457 UNIT/GM 03/26/2019 12:00:00 AM EST active 1 application 2g eCW1 ([facility]) atorvastatin 40 MG Oral Tablet Atorvastatin Calcium 40 MG Atorvastatin Calcium 40 MG 03/26/2019 12:00:00 AM EST 1.0 {tablet} activ e Atorvastatin Calcium 40 MG eCW1 ([facility]) atorvastatin 40 MG Oral Tablet Atorvastatin Calcium 40 MG Atorvastatin Calcium 40 MG 03/26/2019 12:00:00 AM EST 1.0 {tablet} activ e Atorvastatin Calcium 40 MG eCW1 ([facility]) atorvastatin 40 MG Oral Tablet Atorvastatin Calcium 40 MG Atorvastatin Calcium 40 MG 03/26/2019 12:00:00 AM EST 1.0 {tablet} activ e Atorvastatin Calcium 40 MG eCW1 ([facility]) atorvastatin 40 MG Oral Tablet Atorvastatin Calcium 40 MG Atorvastatin Calcium 40 MG 03/26/2019 12:00:00 AM EST 1.0 {tablet} activ e Atorvastatin Calcium 40 MG eCW1 ([facility]) atorvastatin 40 MG Oral Tablet Atorvastatin Calcium 40 MG Atorvastatin Calcium 40 MG 03/26/2019 12:00:00 AM EST 1.0 {tablet} activ e Atorvastatin Calcium 40 MG eCW1 ([facility]) atorvastatin 40 MG Oral Tablet Atorvastatin Calcium 40 MG Atorvastatin Calcium 40 MG 03/26/2019 12:00:00 AM EST 1.0 {tablet} activ e Atorvastatin Calcium 40 MG eCW1 ([facility]) Nystatin 621969 UNT/ML Topical Cream Nystatin 399093 U NIT/GM Nystatin 386233 UNIT/GM 03/26/2019 12:00:00 AM EST active 1 application 2g eCW1 ([facility]) atorvastatin 40 MG Oral Tablet Atorvastatin Calcium 40 MG Atorvastatin Calcium 40 MG 03/26/2019 12:00:00 AM EST 1.0 {tablet} activ e Atorvastatin Calcium 40 MG eCW1 ([facility]) atorvastatin 40 MG Oral Tablet Atorvastatin Calcium 40 MG Atorvastatin Calcium 40 MG 03/26/2019 12:00:00 AM EST active 1 tablet eCW1 ([facility]) atorvastatin 40 MG Oral Tablet Atorvastatin Calcium 40 MG Atorvastatin Calcium 40 MG 03/26/2019 12:00:00 AM EST 1.0 {tablet} activ e Atorvastatin Calcium 40 MG eCW1 ([facility]) atorvastatin 40 MG Oral Tablet Atorvastatin Calcium 40 MG Atorvastatin Calcium 40 MG 03/26/2019 12:00:00 AM EST 1.0 {tablet} activ e Atorvastatin Calcium 40 MG eCW1 ([facility]) atorvastatin 40 MG Oral Tablet Atorvastatin Calcium 40 MG Atorvastatin Calcium 40 MG 03/26/2019 12:00:00 AM EST 1.0 {tablet} activ e Atorvastatin Calcium 40 MG eCW1 ([facility]) atorvastatin 40 MG Oral Tablet Atorvastatin Calcium 40 MG Atorvastatin Calcium 40 MG 03/26/2019 12:00:00 AM EST 1.0 {tablet} activ e Atorvastatin Calcium 40 MG eCW1 ([facility]) atorvastatin 40 MG Oral Tablet Atorvastatin Calcium 40 MG Atorvastatin Calcium 40 MG 03/26/2019 12:00:00 AM EST 1.0 {tablet} activ e Atorvastatin Calcium 40 MG eCW1 ([facility]) atorvastatin 40 MG Oral Tablet Atorvastatin Calcium 40 MG Atorvastatin Calcium 40 MG 03/26/2019 12:00:00 AM EST 1.0 {tablet} activ e Atorvastatin Calcium 40 MG eCW1 ([facility]) atorvastatin 40 MG Oral Tablet Atorvastatin Calcium 40 MG Atorvastatin Calcium 40 MG 03/26/2019 12:00:00 AM EST 1.0 {tablet} activ e Atorvastatin Calcium 40 MG eCW1 ([facility]) atorvastatin 40 MG Oral Tablet Atorvastatin Calcium 40 MG Atorvastatin Calcium 40 MG 03/26/2019 12:00:00 AM EST 1.0 {tablet} activ e Atorvastatin Calcium 40 MG eCW1 ([facility]) atorvastatin 40 MG Oral Tablet Atorvastatin Calcium 40 MG Atorvastatin Calcium 40 MG 03/26/2019 12:00:00 AM EST active 1 tablet eCW1 ([facility]) atorvastatin 40 MG Oral Tablet Atorvastatin Calcium 40 MG Atorvastatin Calcium 40 MG 03/26/2019 12:00:00 AM EST 1.0 {tablet} activ e Atorvastatin Calcium 40 MG eCW1 ([facility]) atorvastatin 40 MG Oral Tablet Atorvastatin Calcium 40 MG Atorvastatin Calcium 40 MG 03/26/2019 12:00:00 AM EST 1.0 {tablet} activ e Atorvastatin Calcium 40 MG eCW1 ([facility]) atorvastatin 40 MG Oral Tablet Atorvastatin Calcium 40 MG Atorvastatin Calcium 40 MG 03/26/2019 12:00:00 AM EST 1.0 {tablet} activ e Atorvastatin Calcium 40 MG eCW1 ([facility]) atorvastatin 40 MG Oral Tablet Atorvastatin Calcium 40 MG Atorvastatin Calcium 40 MG 03/26/2019 12:00:00 AM EST 1.0 {tablet} activ e Atorvastatin Calcium 40 MG eCW1 ([facility]) atorvastatin 40 MG Oral Tablet Atorvastatin Calcium 40 MG Atorvastatin Calcium 40 MG 03/26/2019 12:00:00 AM EST 1.0 {tablet} activ e Atorvastatin Calcium 40 MG eCW1 ([facility]) atorvastatin 40 MG Oral Tablet Atorvastatin Calcium 40 MG Atorvastatin Calcium 40 MG 03/26/2019 12:00:00 AM EST 1.0 {tablet} activ e Atorvastatin Calcium 40 MG eCW1 ([facility]) 10-325 mg 03/26/2019 12:00:00 AM EST tablet 120 TAKE 1 TABLET BY MOUTH EVERY 6 HOURS NEEDED MAXIMUM DAILY DOSE = 4 TABLETS TAKE 1 TABLET BY MOUTH EVERY 6 HOURS NEEDED MAXIMUM DAILY DOSE = 4 TABLETS SOLD: 03/26/2019 [facility] 1,250 mcg (50,000 unit) 03/26/2019 12:00:00 AM EST capsule 4 TAKE 1 CAPSULE BY MOUTH ONCE A WEEK ON MONDAYS TAKE 1 CAPSULE BY MOUTH ONCE A WEEK ON MONDAYS SOLD: 03/27/2019 [facility] atorvastatin 40 MG Oral Tablet Atorvastatin Calcium 40 MG Atorvastatin Calcium 40 MG 03/26/2019 12:00:00 AM EST 1.0 {tablet} activ e Atorvastatin Calcium 40 MG eCW1 ([facility]) atorvastatin 40 MG Oral Tablet Atorvastatin Calcium 40 MG Atorvastatin Calcium 40 MG 03/26/2019 12:00:00 AM EST 1.0 {tablet} activ e Atorvastatin Calcium 40 MG eCW1 ([facility]) atorvastatin 40 MG Oral Tablet Atorvastatin Calcium 40 MG Atorvastatin Calcium 40 MG 03/26/2019 12:00:00 AM EST 1.0 {tablet} activ e Atorvastatin Calcium 40 MG eCW1 ([facility]) atorvastatin 40 MG Oral Tablet Atorvastatin Calcium 40 MG Atorvastatin Calcium 40 MG 03/26/2019 12:00:00 AM EST 1.0 {tablet} activ e Atorvastatin Calcium 40 MG eCW1 ([facility]) atorvastatin 40 MG Oral Tablet Atorvastatin Calcium 40 MG Atorvastatin Calcium 40 MG 03/26/2019 12:00:00 AM EST 1.0 {tablet} activ e Atorvastatin Calcium 40 MG eCW1 ([facility]) atorvastatin 40 MG Oral Tablet Atorvastatin Calcium 40 MG Atorvastatin Calcium 40 MG 03/26/2019 12:00:00 AM EST active 1 tablet eCW1 ([facility]) atorvastatin 40 MG Oral Tablet Atorvastatin Calcium 40 MG Atorvastatin Calcium 40 MG 03/26/2019 12:00:00 AM EST 1.0 {tablet} activ e Atorvastatin Calcium 40 MG eCW1 ([facility]) atorvastatin 40 MG Oral Tablet Atorvastatin Calcium 40 MG Atorvastatin Calcium 40 MG 03/26/2019 12:00:00 AM EST 1.0 {tablet} activ e Atorvastatin Calcium 40 MG eCW1 ([facility]) atorvastatin 40 MG Oral Tablet Atorvastatin Calcium 40 MG Atorvastatin Calcium 40 MG 03/26/2019 12:00:00 AM EST 1.0 {tablet} activ e Atorvastatin Calcium 40 MG eCW1 ([facility]) atorvastatin 40 MG Oral Tablet Atorvastatin Calcium 40 MG Atorvastatin Calcium 40 MG 03/26/2019 12:00:00 AM EST 1.0 {tablet} activ e Atorvastatin Calcium 40 MG eCW1 ([facility]) atorvastatin 40 MG Oral Tablet Atorvastatin Calcium 40 MG Atorvastatin Calcium 40 MG 03/26/2019 12:00:00 AM EST 1.0 {tablet} activ e Atorvastatin Calcium 40 MG eCW1 ([facility]) Nystatin 671437 UNT/ML Topical Cream Nystatin 819935 U NIT/GM Nystatin 114413 UNIT/GM 03/26/2019 12:00:00 AM EST active 1 application 2g eCW1 ([facility]) atorvastatin 40 MG Oral Tablet Atorvastatin Calcium 40 MG Atorvastatin Calcium 40 MG 03/26/2019 12:00:00 AM EST 1.0 {tablet} activ e Atorvastatin Calcium 40 MG eCW1 ([facility]) atorvastatin 40 MG Oral Tablet Atorvastatin Calcium 40 MG Atorvastatin Calcium 40 MG 03/26/2019 12:00:00 AM EST 1.0 {tablet} activ e Atorvastatin Calcium 40 MG eCW1 ([facility]) atorvastatin 40 MG Oral Tablet Atorvastatin Calcium 40 MG Atorvastatin Calcium 40 MG 03/26/2019 12:00:00 AM EST 1.0 {tablet} activ e Atorvastatin Calcium 40 MG eCW1 ([facility]) atorvastatin 40 MG Oral Tablet Atorvastatin Calcium 40 MG Atorvastatin Calcium 40 MG 03/26/2019 12:00:00 AM EST 1.0 {tablet} activ e Atorvastatin Calcium 40 MG eCW1 ([facility]) atorvastatin 40 MG Oral Tablet Atorvastatin Calcium 40 MG Atorvastatin Calcium 40 MG 03/26/2019 12:00:00 AM EST 1.0 {tablet} activ e Atorvastatin Calcium 40 MG eCW1 ([facility]) atorvastatin 40 MG Oral Tablet Atorvastatin Calcium 40 MG Atorvastatin Calcium 40 MG 03/26/2019 12:00:00 AM EST 1.0 {tablet} activ e Atorvastatin Calcium 40 MG eCW1 ([facility]) atorvastatin 40 MG Oral Tablet Atorvastatin Calcium 40 MG Atorvastatin Calcium 40 MG 03/26/2019 12:00:00 AM EST 1.0 {tablet} activ e Atorvastatin Calcium 40 MG eCW1 ([facility]) atorvastatin 40 MG Oral Tablet Atorvastatin Calcium 40 MG Atorvastatin Calcium 40 MG 03/26/2019 12:00:00 AM EST 1.0 {tablet} activ e Atorvastatin Calcium 40 MG eCW1 ([facility]) atorvastatin 40 MG Oral Tablet Atorvastatin Calcium 40 MG Atorvastatin Calcium 40 MG 03/26/2019 12:00:00 AM EST 1.0 {tablet} activ e Atorvastatin Calcium 40 MG eCW1 ([facility]) atorvastatin 40 MG Oral Tablet Atorvastatin Calcium 40 MG Atorvastatin Calcium 40 MG 03/26/2019 12:00:00 AM EST 1.0 {tablet} activ e Atorvastatin Calcium 40 MG eCW1 ([facility]) atorvastatin 40 MG Oral Tablet Atorvastatin Calcium 40 MG Atorvastatin Calcium 40 MG 03/26/2019 12:00:00 AM EST 1.0 {tablet} activ e Atorvastatin Calcium 40 MG eCW1 ([facility]) atorvastatin 40 MG Oral Tablet Atorvastatin Calcium 40 MG Atorvastatin Calcium 40 MG 03/26/2019 12:00:00 AM EST active 1 tablet eCW1 ([facility]) atorvastatin 40 MG Oral Tablet Atorvastatin Calcium 40 MG Atorvastatin Calcium 40 MG 03/26/2019 12:00:00 AM EST 1.0 {tablet} activ e Atorvastatin Calcium 40 MG eCW1 ([facility]) atorvastatin 40 MG Oral Tablet Atorvastatin Calcium 40 MG Atorvastatin Calcium 40 MG 03/26/2019 12:00:00 AM EST 1.0 {tablet} activ e Atorvastatin Calcium 40 MG eCW1 ([facility]) atorvastatin 40 MG Oral Tablet Atorvastatin Calcium 40 MG Atorvastatin Calcium 40 MG 03/26/2019 12:00:00 AM EST 1.0 {tablet} activ e Atorvastatin Calcium 40 MG eCW1 ([facility]) atorvastatin 40 MG Oral Tablet Atorvastatin Calcium 40 MG Atorvastatin Calcium 40 MG 03/26/2019 12:00:00 AM EST 1.0 {tablet} activ e Atorvastatin Calcium 40 MG eCW1 ([facility]) atorvastatin 40 MG Oral Tablet Atorvastatin Calcium 40 MG Atorvastatin Calcium 40 MG 03/26/2019 12:00:00 AM EST 1.0 {tablet} activ e Atorvastatin Calcium 40 MG eCW1 ([facility]) atorvastatin 40 MG Oral Tablet Atorvastatin Calcium 40 MG Atorvastatin Calcium 40 MG 03/26/2019 12:00:00 AM EST 1.0 {tablet} activ e Atorvastatin Calcium 40 MG eCW1 ([facility]) atorvastatin 40 MG Oral Tablet Atorvastatin Calcium 40 MG Atorvastatin Calcium 40 MG 03/26/2019 12:00:00 AM EST 1.0 {tablet} activ e Atorvastatin Calcium 40 MG eCW1 ([facility]) atorvastatin 40 MG Oral Tablet Atorvastatin Calcium 40 MG Atorvastatin Calcium 40 MG 03/26/2019 12:00:00 AM EST 1.0 {tablet} activ e Atorvastatin Calcium 40 MG eCW1 ([facility]) atorvastatin 40 MG Oral Tablet Atorvastatin Calcium 40 MG Atorvastatin Calcium 40 MG 03/26/2019 12:00:00 AM EST 1.0 {tablet} activ e Atorvastatin Calcium 40 MG eCW1 ([facility]) atorvastatin 40 MG Oral Tablet Atorvastatin Calcium 40 MG Atorvastatin Calcium 40 MG 03/26/2019 12:00:00 AM EST 1.0 {tablet} activ e Atorvastatin Calcium 40 MG eCW1 ([facility]) atorvastatin 40 MG Oral Tablet Atorvastatin Calcium 40 MG Atorvastatin Calcium 40 MG 03/26/2019 12:00:00 AM EST 1.0 {tablet} activ e Atorvastatin Calcium 40 MG eCW1 ([facility]) atorvastatin 40 MG Oral Tablet Atorvastatin Calcium 40 MG Atorvastatin Calcium 40 MG 03/26/2019 12:00:00 AM EST 1.0 {tablet} activ e Atorvastatin Calcium 40 MG eCW1 ([facility]) atorvastatin 40 MG Oral Tablet Atorvastatin Calcium 40 MG Atorvastatin Calcium 40 MG 03/26/2019 12:00:00 AM EST 1.0 {tablet} activ e Atorvastatin Calcium 40 MG eCW1 ([facility]) Nystatin 213118 UNT/ML Topical Cream Nystatin 973628 U NIT/GM Nystatin 680670 UNIT/GM 03/26/2019 12:00:00 AM EST active 1 application eCW1 ([facility]) atorvastatin 40 MG Oral Tablet Atorvastatin Calcium 40 MG Atorvastatin Calcium 40 MG 03/26/2019 12:00:00 AM EST 1.0 {tablet} activ e Atorvastatin Calcium 40 MG eCW1 ([facility]) atorvastatin 40 MG Oral Tablet Atorvastatin Calcium 40 MG Atorvastatin Calcium 40 MG 03/26/2019 12:00:00 AM EST 1.0 {tablet} activ e Atorvastatin Calcium 40 MG eCW1 ([facility]) atorvastatin 40 MG Oral Tablet Atorvastatin Calcium 40 MG Atorvastatin Calcium 40 MG 03/26/2019 12:00:00 AM EST active 1 tablet eCW1 ([facility]) atorvastatin 40 MG Oral Tablet Atorvastatin Calcium 40 MG Atorvastatin Calcium 40 MG 03/26/2019 12:00:00 AM EST 1.0 {tablet} activ e Atorvastatin Calcium 40 MG eCW1 ([facility]) Acetaminophen 325 MG / Oxycodone Hydroch loride 10 MG Oral Tablet [Percocet] Percocet 10-325 MG Percocet 10-325 MG 03/25/2019 12:00:00 AM EST active 1 tablet as needed eCW1 ([facility]) Morphine Sulfate 15 MG Extended Release Oral Tablet Mo rphine Sulfate ER 15 MG Morphine Sulfate ER 15 MG 03/10/2019 12:00:00 AM EST active 1 to 2 as directed eCW1 ([facility]) Morphine Sulfate 15 MG Extended Release Oral Tablet Mo rphine Sulfate ER 15 MG Morphine Sulfate ER 15 MG 03/10/2019 12:00:00 AM EST active 1 to 2 as directed eCW1 ([facility]) Morphine Sulfate 15 MG Extended Release Oral Tablet Mo rphine Sulfate ER 15 MG Morphine Sulfate ER 15 MG 03/10/2019 12:00:00 AM EST active 1 to 2 as directed eCW1 ([facility]) 15 mg 03/10/2019 12:00:00 AM EST tablet [...] active 1 to 2 as directed eCW1 ([facility]) Morphine Sulfate 15 MG Extended Release Oral Tablet Mo rphine Sulfate ER 15 MG Morphine Sulfate ER 15 MG 03/10/2019 12:00:00 AM EST active 1 to 2 as directed eCW1 ([facility]) 5 mg 03/05/2019 12:00:00 AM EST tablet 60 TAKE ONE TABLET BY MOUTH EVERY 12 HOURS NEEDED FOR ANXIETY MAXIMUM DAILY DOSE = 2 TABLETS TAKE ONE TABLET BY MOUTH EVERY 12 HOURS NEEDED FOR ANXIETY MAXIMUM DAILY DOSE = 2 TABLETS SOLD: 03/05/2019 [facility] Diazepam 5 MG Oral Tablet diazePAM 5 MG Oral Tablet (V ALIUM) diazePAM 5 MG Oral Tablet (VALIUM) 03/05/2019 12:00:00 AM EST 5 mg Oral ac tive Take 1 tablet by mouth every 12 (twelve) hours as needed for Anxiety, Max Daily Dose: 10 mg [facility] 300 mg 02/24/2019 12:00:00 AM EST [...] EST active 1 tablet as needed eCW1 ([facility]) Acetaminophen 325 MG / Oxycodone Hydroch loride 10 MG Oral Tablet [Percocet] Percocet 10-325 MG Percocet 10-325 MG 02/17/2019 12:00:00 AM EST active 1 tablet as needed eCW1 ([facility]) Acetaminophen 325 MG / Oxycodone Hydroch loride 10 MG Oral Tablet [Percocet] Percocet 10-325 MG Percocet 10-325 MG 02/17/2019 12:00:00 AM EST active 1 tablet as needed eCW1 ([facility]) Acetaminophen 325 MG / Oxycodone Hydroch loride 10 MG Oral Tablet [Percocet] Percocet 10-325 MG Percocet 10-325 MG 02/17/2019 12:00:00 AM EST active 1 tablet as needed eCW1 ([facility]) Acetaminophen 325 MG / Oxycodone Hydroch loride 10 MG Oral Tablet [Percocet] Percocet 10-325 MG Percocet 10-325 MG 02/17/2019 12:00:00 AM EST active 1 tablet as needed eCW1 ([facility]) Acetaminophen 325 MG / Oxycodone Hydroch loride 10 MG Oral Tablet [Percocet] Percocet 10-325 MG Percocet 10-325 MG 02/17/2019 12:00:00 AM EST active 1 tablet as needed eCW1 ([facility]) Acetaminophen 325 MG / Oxycodone Hydroch loride 10 MG Oral Tablet [Percocet] Percocet 10-325 MG Percocet 10-325 MG 02/17/2019 12:00:00 AM EST active 1 tablet as needed eCW1 ([facility]) Percocet 10-325 MG UNK 02/17/2019 12:00:00 AM EST active 1 tablet as needed eCW1 ([facility]) Amitriptyline Hydrochloride 25 MG Oral Tablet AMITRIPTYLINE [...] active 1 to 2 as directed eCW1 ([facility]) Morphine Sulfate 15 MG Extended Release Oral Tablet Mo rphine Sulfate ER 15 MG Morphine Sulfate ER 15 MG 02/12/2019 12:00:00 AM EST active 1 to 2 as directed eCW1 ([facility]) Morphine Sulfate ER 15 MG UNK 02/12/2019 12:00:00 AM EST active 1 to 2 as directed eCW1 ([facility]) duloxetine 30 MG Delayed Release Oral Ca psule DULoxetine HCl 30 MG Oral Capsule Delayed Release Particles (CYMBALTA) DULoxetine HCl 30 MG Oral Capsule Delaye d Release Particles (CYMBALTA) 12/30/2018 12:00:00 AM EST aborted [facility] Carisoprodol 350 MG Oral Tablet CARISOPRODOL 12/05/2018 12:00:00 AM EDT tablet 90 TAKE ONE TABLET BY MOUTH EVERY 8 HOURS, MAXIMUM DAILY DOSE = 3 TABLETS TAKE ONE TABLET BY MOUTH EVERY 8 HOURS, MAXIMUM DAILY DOSE = 3 TABLETS SOLD: 03/04/2019 [facility] 350 mg 12/05/2018 12:00:00 AM EDT tablet 90 TAKE ONE TABLET BY MOUTH EVERY 8 HOURS, MAXIMUM DAILY DOSE = 3 TABLETS TAKE ONE TABLET BY MOUTH EVERY 8 HOURS, MAXIMUM DAILY DOSE = 3 TABLETS SOLD: 05/02/2019 [facility] 350 mg 12/05/2018 12:00:00 AM EDT tablet 90 TAKE ONE TABLET BY MOUTH EVERY 8 HOURS, MAXIMUM DAILY DOSE = 3 TABLETS TAKE ONE TABLET BY MOUTH EVERY 8 HOURS, MAXIMUM DAILY DOSE = 3 TABLETS SOLD: 04/04/2019 [facility] 20 mg 11/07/2018 12:00:00 AM [...] aborted Take 25 mg by mouth daily [facility] Propranolol Hydrochloride 20 MG Oral Tablet propranolo l (INDERAL) 20 MG tablet propranolol (INDERAL) 20 MG tablet 01/13/2018 12:00:00 AM EST aborted TAKE ONE TABLET BY MOUTH EVERY DAY ON EM PTY STOMACH [facility] Oxycodone Hydrochloride 5 MG Oral Tablet oxyCODONE (ROXICODONE) 5 MG immediate release tablet oxyCODONE (ROXICODONE) 5 MG immediate release tablet 0 06/25/2017 12:00:00 AM EDT aborted Take 1 PO q4h prn pain, MDD = 6 [facility] Insurance Providers Payer name Policy type / Coverage type Policy ID Covered constitution party ID Covered constitution party's relationship to daly Policy [place] Plan Information MEDICARE [id number] SP [id number] MEDICARE [id number] SP [id number] EXCELLUS BC-BS PPO 306 [id number] SP [id number] [employer]US BC-BS PPO 306 [id number] SP [id number] MEDICARE C [id number] S [id number] [place] 302/307 [id number] SP [id number] [place] 302/307 [id number] SP [id number] [place] BC-BS PPO 306 [id number] SP [id number] [employer] BCBS B [id number] S [id number] TRAVELERS WC W [id number] Empl [id number] BC[place] 220/720 [id number] SP [id number] BCBS [employer] [id number] SP [id number] [place] P[place] 302/307 [id number] SP [id number] [place] 302/307 [id number] SP [id number] EXCELLUS H [id number] Self [id number] 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 [id number] SP [id number] TRA[employer]ELERS-WC WCB# [id number] SP WCB # [id number] [place] P[place] 302/307 [id number] SP [id number] 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 [id number] SP [id number] EXCELLUS BCBS B [id number] S [id number] 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 WCB# [id number] WCB# [id number] 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 [id number] SP [id number] TRA[employer] WCB# [id number] SP WCB # [id number] 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 [id number] SP [id number] 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 [id number] SP [id number] OTHER WORKERS COMPENSATI O [id number] S WCB#[id number] TRAVELERS WC W [id number] Empl [id number] ANSI-Commercial [id number] ANSI-Not a Secondary Insurance [id number] ANSI-Not a Secondary Insurance [id number] ANSI-Commercial [id number] ANSI-Not a Secondary Insurance [id number] ANSI-Commercial [id number] ANSI-Commercial [id number] ANSI-Not a Secondary Insurance [id number] 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 B# [id number] SP B# [id number] ANSI-Commercial [id number] ANSI-Not a Secondary Insurance [id number] ANSI-Commercial [id number] ANSI-Not a Secondary Insurance [id number] ANSI-Not a Secondary Insurance [id number] ANSI-Commercial [id number] ANSI-Commercial [id number] ANSI-Not a Secondary Insurance [id number] ANSI-Commercial [id number] ANSI-Not a Secondary Insurance [id number] ANSI-Commercial [id number] ANSI-Not a Secondary Insurance [id number] fau5g8q 45a9ann3-97j9-029a-s204-3v8h4zpz0w7q ANSI-Not a Secondary Insurance 131fq580-s974-837r-d33f-5u67c evfj6l0 130fe953-h919-608k-m54z-0z07rjqmu4e6 ANSI-Commercial [id number]-[id number] [employer]-BS PPO [id number] ANSI-Not a Secondary Insurance [id number]-vp53-pwm14 [id number] [id number]-nlg5-189v-[id number] ANSI-Commercial 529gqw73-npr3-8oj5-8dxh-[id number]-vub6-8ao9-9jda-[id number] ANSI-Not a Secondary Insurance y12j87d7-2m72-64j9-3bs0-j38i7 r1pk9w2 d09l03x1-9j07-69i0-0ml8-[id number] ANSI-Commercial [id number]-[id number] ANSI-Commercial 2b37e0c7-987a-6527-c4w5-c55i37t04f9u 9h83k6q0-492j-2467-e5c2-m24g94z22u4g ANSI-Not a Secondary Insurance sq8m3v1u-7094-6l8u-62q3-5wmjg 55i3952 la4g4r4h-1845-8g6a-47x9-4jwpi09v6658 ANSI-Commercial l8t69n59-m1y9-321p-us3n-32nx309063l0 g2p65g49-x4p1-119i-fd5g-54oi814505q4 ANSI-Not a Secondary Insurance 98a2udd9-yz76-8116-d553-36k8z 5mp86u8 52c4cbg8-pk94-5625-d525-38d8p4us45p2 ANSI-Not a Secondary Insurance f7354581-k249-33v6-0oy9-hl6h1 h03p778 t2545793-r730-03k3-0ks4-rx1x4c97h249 ANSI-Commercial 1bl3k8x4-353n-2i84-r1uy-96r5m8569m57 2ae8x5m3-024d-9s69-n9su-79g0k5373y28 ANSI-Not a Secondary Insurance 6oath49l-o6k2-108v-r8q1-nvo2k 951l6oo 1pylz80g-d9v6-226b-z1z9-hnk6j789d2ju ANSI-Commercial 96oo4agp-75b7-1821-9208-d06ccq9sm485 94jl1xrr-86y0-1785-9936-y41mig8jh188 ANSI-Not a Secondary Insurance j51b78yg-r06s-3idc-2j57-c7438 f3c3od3 o60d26bh-g34f-6uwp-3x88-i1649n5u4bl0 ANSI-Commercial 2p73q0ui-4u35-9612-d458-3b8377i1zz76 9n37l6qj-0u16-9914-w169-1r3282q1er44 ANSI-Commercial t28iz103-8v7k-830f-z0o5-9r606t512q15 l26ax255-2h4f-631b-d3y5-7s932u057r05 ANSI-Not a Secondary Insurance 0uzlkk5f-h467-109x-l4f2-pg72r 4z6t5a1 1wluiy2q-t757-724s-z2g1-zo53i0d9v3b0 ANSI-Not a Secondary Insurance tt0dr838-k0y5-2103-n8z7-56311 vx8a65z ve7mw034-x3c0-1250-w5p4-08020qx4y19p ANSI-Commercial 5655z2t4-15yy-9586-2z8e-36wl364iz0b8 2474v2t9-88ju-3121-9h5p-75xw996fo2b1 ANSI-Commercial 988m1j67-rz17-62n5-cc3e-4yb3ymvt4wb5 998w9m92-qt52-86a1-ai3g-5ll4uryx4rd4 ANSI-Not a Secondary Insurance 853290t3-c0k1-1kmy-z92h-tb5a1 9269a8w 190416g1-g8o1-7gpx-b88k-uz2h49338e4s ANSI-Commercial 3h7a3lf4-850x-2t72-0331-159k627l34m9 1h0t9ff1-013s-1y63-6930-900p042j69c6 ANSI-Not a Secondary Insurance g667599b-1w42-4j31-11u2-1nvn6 9l30995 e497694y-5j60-8x83-89f1-6xyv50w17321 ANSI-Not a Secondary Insurance nd5g2kqd-6o7p-60dj-j2m7-g68p4 vt856i3 jp7n9awg-0l5d-90qf-c2h3-z34x3op851c4 ANSI-Commercial -h0f6-78d8-1ziz-l34v558x58b7 gqgzu708-f1k9-26g8-1dml-c77j436x90i5 ANSI-Commercial 775900q7-84z1-3ud1-1329-925h92uc6h9l 890696t6-03b9-3wf5-8034-933c47eh3f9p ANSI-Not a Secondary Insurance 684r3v4d-6f51-4768-091d-k182q dy0zah9 318b3b8l-9c97-4166-457w-a463uhb3tgs6 ANSI-Not a Secondary Insurance 530s633z-14fs-9jqu-4b3b-3h665 h3z19t3 923w502a-48gz-5hyu-4c4f-9f251y3c33c1 ANSI-Commercial w3aw0414-39j2-30h1-10h0-9i86812uyi40 v2bv0743-91v7-88r5-14g0-4q75176vuu43 ANSI-Commercial t178923i-83kr-7002-2w59-90wk1b4u68ms z290953b-11xj-5917-7i73-07bn6m7l09ws ANSI-Not a Secondary Insurance 1g9z7263-v2e3-3sv5-e41y-6vs43 5yk6o15 0g3s5212-d0s4-3mi8-n00n-5wm397kg6n96 ANSI-Commercial 398x34i2-3sma-22n4-p49c-2twg8748z883 065t71o0-3ngu-56p9-d39r-8cci4275j223 ANSI-Not a Secondary Insurance u9g5974e-6ms9-858b-5ap9-36jfn 5v90cge e9o9462x-9jv1-360k-4xm6-61huw7v31nbo ANSI-Commercial 6nrs861u-i420-39h5-m781-49l041544002 4akd629v-a168-50a3-k584-71v525108264 ANSI-Not a Secondary Insurance 4c36if23-g178-7084-4987-702z6 129e2l7 3m32xd93-l138-6890-5033-790h9138a6m5 ANSI-Commercial 93ou8wk0-2p60-3ac9-8449-8utb4o2178mn 56ir3zn2-4t72-1xz9-1032-8zsg9q7686pf ANSI-Not a Secondary Insurance 21yz1662-27k2-16mj-g433-r437i m6932e4 03tz7173-48r4-43tx-b145-h090mh2473r2 ANSI-Commercial f1m50401-2xx9-2037-9p08-3bt96189c22d l3w64202-8ar9-0702-4b91-8rv45703c82l ANSI-Not a Secondary Insurance m366q695-pm42-2vfj-322k-6j703 zfk9t0s g811a516-pk09-5gqr-859x-0x204ivy8n0k ANSI-Commercial 1cs4lk17-z6g5-36kh-j73x-43f2548ux4hz 5rf2gq61-a3q9-11gf-u85e-56u1866ha6rd ANSI-Not a Secondary Insurance 3v14o6gf-2x28-3w26-95y6-s08x0 3yois08 8c34o1wz-3k99-2u33-01i0-f03a29cfzb30 ANSI-Not a Secondary Insurance 2nepw1f2-0i38-2oo6-qb1l-685j7 791f9l7 7biaw5s1-6z43-6ep6-ir6i-274b4027p1n2 ANSI-Commercial m535n7uu-46z7-701i-7332-h5mv1d7we3u7 a892l9rx-03j1-357a-4139-l3mu3l2fq6o6 ANSI-Commercial f1z6m813-8315-32g3-27ou-5z03c1vh341o c0a4v623-5662-56p2-62kt-0q25v6zn275a ANSI-Not a Secondary Insurance 4628y089-5786-8k52-3jtz-n4p92 j6263fv 1759o260-5112-9t66-9pdc-u4d42l6162ev ANSI-Commercial 28586077-f116-4793-sy49-gqg8y0750737 17058032-l693-4340-vs10-gjy6r8917075 ANSI-Not a Secondary Insurance 15u356po-d628-83ft-t4bz-9si78 1feaaac 19t716bb-p283-25bv-u0tv-7bw785klcrrz ANSI-Not a Secondary Insurance 45m10f08-r3zf-9507-6mm2-6418t 49345r0 17h36w58-p8uc-8507-1if0-4732n06600j6 ANSI-Commercial 12i0n6o0-049n-8k43-29go-209ewj1zi239 99b6s9q0-009e-5z00-27xz-807whl5qh937 ANSI-Not a Secondary Insurance 27vo6zsi-lb41-4827-gq8v-7o2q6 3b9e91p 17dp9cwt-ul38-6113-mo2p-3k9y29x3p96j ANSI-Commercial 4q2q9af9-62p6-62kd-lf70-966691zd8n4n 0y8j8zh3-60h1-79ya-yb69-542162xz3m9z ANSI-Commercial wme56791-yp73-7a27-1639-6y60aecwxy12 upi67543-pz93-5c25-3046-9n57pcoiic60 ANSI-Not a Secondary Insurance b94h2dw0-4z1q-91p2-p6iz-ueb22 705408x n24o7fw7-2k9t-86r7-v7yq-fgy35427001c ANSI-Not a Secondary Insurance ww7765vm-12b8-4u96-9ggr-63655 6668063 ec7304dj-57a5-7n42-7cdc-588027863696 ANSI-Commercial h0d2e456-0n51-6456-w932-6y34h2v657vf i3n3w803-6l23-0479-u941-0c66t8f462fd ANSI-Not a Secondary Insurance 5f1is1k7-6919-3365-440o-586yw x14023m 0a4si0o7-5451-6767-119l-243jxs07916q ANSI-Commercial 136j707y-5106-9874-521k-84q430vck8o7 139g231q-5800-8171-084w-15r690gkx8j3 ANSI-Not a Secondary Insurance 68632415-p32j-7mk7-lh1w-2q23z 5e13mo1 54840429-h28v-8ts0-ti4a-9y31n0f87si9 ANSI-Commercial q502v716-h8i3-8ee8-82h0-4dg98i950an7 j785y907-w8g0-5yp5-89x0-9pf91h006fs3 ANSI-Not a Secondary Insurance l60n0b9w-71b7-607n-c6e6-72512 x22sj8f f68i3b3p-08f3-631z-f1s1-92726t03hn1l ANSI-Commercial 0g6sz2k8-i2j8-7751-iy63-pi167235o4xa 8c2gq2z1-e4z0-1967-fh35-pj994674n7bn ANSI-Commercial 9nqy131c-h8e3-82bf-lu03-m4ibrvns8066 3rvl849a-j0v8-17pj-zq71-s6osbhpc3901 ANSI-Not a Secondary Insurance 55277720-h878-7871-nyu9-6i91l cs748q4 57321554-i749-8441-aeh9-1p50jqm249r1 ANSI-Not a Secondary Insurance 8569mjx4-rbrr-97c6-1373-c1np5 7p326b1 0879rbn4-nuvs-70u5-9806-q4by94h522r2 ANSI-Commercial s0oq71d1-442t-24t1-g2l3-401698824953 f7qj63o2-951v-50p1-n6i4-877996092227 ANSI-Not a Secondary Insurance 6163vnh1-2bzx-36r2-8q1g-5l8d9 71b8862 4025hcy1-1mic-72u4-3j0w-1s8v062e9698 ANSI-Commercial ok2udcv4-6tnl-26vk-atju-990v1jc3vs61 ve4mbda5-3oyf-95rs-nucb-909t5cr8za16 ANSI-Commercial q96i3508-83s8-337n-33ky-67b7tx2s9983 n33k9030-67j9-338n-18ld-71u4wr2x3879 ANSI-Not a Secondary Insurance i39a8c8j-xnwy-80zp-7x6l-i3ql3 3f9q225 l49r6i3f-jjzr-43oq-1v2r-i0ol29z4h731 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 O [id number] O [id number] ANSI-Not a Secondary Insurance 58ug3374-21n3-1d9t-z1p2-6dlt1 d826841 60zf2164-23o1-7c6q-i8x0-8tqo2k942294 ANSI-Commercial uif7w403-ysfw-3q12-710s-443544639vn1 vpc5q151-pwhk-6f97-459y-971646970yl0 ANSI-Not a Secondary Insurance 57l4me5l-9l27-864i-5vx7-4sw8s 3emi889 05s6bp9y-2z89-658i-5eu7-7me7p3arm340 ANSI-Commercial 912qj4y8-k058-9588-079e-66842q9wgf49 194go0h8-d930-5663-170n-99391o9kbo03 ANSI-Commercial t006a759-a5yb-23z0-s38t-c9y77231hlb3 n324c569-c3jj-84s2-j49b-z0q10242nox6 ANSI-Not a Secondary Insurance mc6i8up8-q519-8220-8mz9-68t40 73s6bdq vw0n6gf4-s116-9157-5rh0-55r6467x1gnw ANSI-Commercial l043t84p-2758-0r52-y8m8-5uq2vt8342f1 p510x69g-8599-2z67-u8m5-2xh4wd2376i0 ANSI-Not a Secondary Insurance 05g9om5i-f6n0-595h-9c1x-99sm7 6837727 10i3gb2t-h7b2-362u-3n9o-04ra43875807 ANSI-Commercial 429rt108-4774-1097-yr1t-r04035i1lu75 778lq974-5395-3758-jx3q-a22392c7ex73 ANSI-Not a Secondary Insurance 93890czn-1imi-458l-69a0-6b05z rkb5yz4 57207dit-1fwu-633t-29h6-0f53wbgv8py7 ANSI-Commercial 2g36q98g-u46q-7ma5-086m-3v428c8z5789 0l33a27o-v63v-1ne4-437q-4b494x9a4315 ANSI-Not a Secondary Insurance 716l9265-4t01-23ka-j9on-09k09 489ebec 257p1871-4q96-87ij-n3ql-74s54980nqeo ANSI-Not a Secondary Insurance 72707501-n6a8-9lg4-yv9y-6z750 g7h468k 74446985-g4x0-2yh6-kc9y-2g352q7v566s ANSI-Commercial 0cvb44np-4of0-992l-yk41-483362g7i3ak 7ubn00wc-9cb4-137a-wn19-836813f5m6so ANSI-Not a Secondary Insurance 7a46q818-lm28-884q-5e22-59khc 3l66s1u 8w24a641-hw04-998s-8u58-85avx4e29u3h ANSI-Commercial mjj2262a-m097-96hq-8ju7-a99qyfvo0v5u vub1034d-z020-32ky-3vg9-j26lulrv2b1c ANSI-Commercial 25wp6946-1x2g-3pza-va4r-z2w5a9t1m7lf 07tv3502-5r5y-0kpk-we9y-a6v3b1k2k8zo ANSI-Not a Secondary Insurance 1a8wh563-4l5g-364h-1n74-5o6q7 7w24970 5c6wu039-3t6s-701t-7q45-9d2y10e71377 ANSI-Commercial 70tj4l11-5877-0py0-0k1o-4618d98ki494 24ey2o35-2608-9xb4-7j0g-0986e14dq014 ANSI-Not a Secondary Insurance o0ln45g3-xsp8-4q2w-s942-io5vk 4ucl1tm k9gj68b2-zwt6-6v0h-c326-mk4du7bnn7gn ANSI-Commercial 1g0o25jg-3mzv-690z-cc1c-64d6216c4w7h 7n2v10gp-1oeg-614x-ip0g-18j2824v2z1s ANSI-Not a Secondary Insurance 2076320u-459j-6008-5p65-sq4k5 066ve45 1977964d-669t-7044-0f11-bx3w9358ym55 ANSI-Commercial vlo99g09-0w3r-26y3-n525-lxmmvrn59b87 gac30o87-7h9p-44v8-q773-wqnhxss42u79 ANSI-Not a Secondary Insurance 0r312cuh-4m10-6qlo-i759-1t086 318t854 1p648occ-5m80-6tak-g738-8b113363s150 ANSI-Not a Secondary Insurance 5g1ubumh-2hln-3g4z-w0r1-i15nx 6861432 2o5kquxt-1hbe-1x3u-t2f1-a41kw3355603 ANSI-Commercial 410v6z2e-517x-9r64-k66s-0533989j48j5 054t7p7a-363q-4x79-t55z-9374240m04k8 ANSI-Not a Secondary Insurance 7v4d7m1q-l238-28fl-38s5-2774m 25oxh09 0a9m5w2m-y970-18ug-18s2-9474g50eet98 ANSI-Commercial 8753222s-k74g-3413-2uvy-9863k7ih9o8l 9872161o-d23f-8752-0zgx-3999o8iv1l0x ANSI-Commercial uw5p833i-9uu9-6cd4-7h97-r7s98jj523a8 wp0y197o-6cx5-8ti5-4l20-m1z67qx886j4 ANSI-Not a Secondary Insurance 07u26ss6-5v0p-5dv1-5s22-k6b5l kmjf610 01k92qu3-9m3q-1qz7-9r98-t4c8pfdew082 ANSI-Not a Secondary Insurance 5562mw12-59f6-230v-6991-7g34v c83505m 8679mw35-62j7-613c-7122-3e15qh50245g ANSI-Commercial 67r2r2c7-9178-6p71-ky91-ak41y4364013 36o3s3s8-3230-6m89-gh59-ut37h0343175 ANSI-Not a Secondary Insurance 789iv65i-94co-7y9r-4r29-1h49w 0r4s1o2 296vi98h-82tu-1z1o-2b37-3w92u7u9y2o0 ANSI-Commercial 8o85956z-9071-9686-t691-n3i3cmij2ru6 5a08888p-3430-1843-h071-g8d4pkfk4yu1 [facility] [id number] [facility] [id number] ANSI-Commercial 73rtf19x-1297-5717-4253-4ar2pw8f7671 25hnz21j-0220-0564-9000-9yd0rt3f0911 ANSI-Not a Secondary Insurance f0522ght-8w49-4703-6gi1-f131w 9nlf91t l4195vsa-4a47-5944-3fb4-a002a4tuj08l ANSI-Not a Secondary Insurance 74q15836-36x7-5378-52d0-01541 k4yvzl9 12t42831-87i4-2625-20h3-33112i5vrrg6 ANSI-Commercial np32f7kt-408g-91i2-32l5-m13rogjny95d gt49l9vz-580h-47u5-27e7-h55rkmayo22h ANSI-Not a Secondary Insurance xip9610v-8a40-6538-n5e0-w8551 5h45yvm vfu4798c-3z49-9595-o4g8-a51107n43qry ANSI-Commercial 705e642h-4l1g-218b-cl1u-54u18gz93rj4 587c192i-5v9n-355q-zg8o-18j06ti09xi9 ANSI-Not a Secondary Insurance j578itir-ka6l-683b-1n68-39c0a 8kz08e9 p984fdkh-dc3q-519k-7c36-41f5h6dj52i6 ANSI-Commercial u48yi0d3-yrnj-293q-vni4-u263095067v8 s71kr7v1-cwqn-602g-ahb4-l754301303e7 ANSI-Not a Secondary Insurance e656yjr7-83yv-17s5-my3z-44230 3bedd2p n804zpf2-20mf-25q4-hr5d-295860pmlm0u ANSI-Commercial nz6kk42j-7jn7-4288-s811-2btl4635956x vy9ld00f-1sg3-7665-q102-5knx5793548c ANSI-Commercial 395046p1-9d35-00dw-8l41-ly66w041q0z3 822384u4-7e55-65la-7v85-eg82j160u7r1 ANSI-Not a Secondary Insurance 643u34tx-1e37-156u-9v6l-93797 3996f9w 660e89ag-8h83-043z-8c9q-222915747v5x ANSI-Not a Secondary Insurance md918028-g957-89un-p959-095ea 95x968s be101415-k209-37ra-c044-002el55t214s ANSI-Commercial sra55c46-4987-43e8-vx94-qbm78k665505 ayg15h00-1992-84p8-ru03-lvi27k560815 ANSI-Not a Secondary Insurance k21g80mi-s25f-138z-883l-3h704 i8p8990 z80y54ln-e75w-425i-815o-1f582w4m3367 ANSI-Commercial pym44eq3-rn26-5831-79zg-014l26p526k2 ldy70hv4-su62-3946-06ml-987c59o139g5 ANSI-Commercial xm1b8isk-h7nh-7270-28t8-cd3c3r705e1e ad6u6zpl-i0so-1421-17d9-ry7m5r072s9l ANSI-Not a Secondary Insurance 406x0797-416l-6533-d1n7-086bo 2e2r2t3 701i1060-699n-1239-d4i4-340bj8x6s5c8 TRAVELERS- [id number] SP [id number] ANSI-Not a Secondary Insurance c8e398q5-xc7w-6g40-6973-58c8v 35l770z d8v413o7-cq4n-7h47-7334-38w2t55y301i ANSI-Commercial 1797344m-874j-83ri-ojb0-qmp97e1y0z93 5447750f-268u-69qz-tuj3-tqq40k2b0r58 ANSI-Commercial eyb4q059-99v8-5vhv-r2ru-o4z08w8833vl ajp9s676-17t6-4krh-h5wk-v7j51b5313dp ANSI-Not a Secondary Insurance n8g41903-5k70-481i-10l3-8622y j942ba4 v4h57177-9r59-970a-22s2-4788rd641xe4 ANSI-Not a Secondary Insurance 90q68320-2291-659g-6265-9k72z 35k576w 58j98138-9105-261m-4941-8h20s30m623l ANSI-Commercial 7pxgf774-i681-0283-3277-4597264tj527 9ziyv529-x888-8806-6325-0459627it964 OTHER WORKERS COMPENSATI O WCB#[id number] S WCB#[id number] ANSI-Not a Secondary Insurance k572a159-k9j6-5h33-ex29-64979 0756ebf y192l250-i3a8-6g95-eo05-788074056rbr ANSI-Commercial 63582o60-z5c6-3p09-410v-153200b5651b 05928k04-q7c6-7f25-907b-808159e2575j ANSI-Commercial 00648228-o5zq-64q5-53by-qx0p8osf7945 12493821-r8bb-23a6-83ov-jp8i0ijd7609 ANSI-Not a Secondary Insurance 79y9vc01-1i9f-0176-2782-5421b 14tx4t9 08m8pz20-2j5v-8268-6488-8304q50wi8g1 OTHER WORKERS COMPENSATI O WCB#[id number] S WCB#[id number] TRAVELERS-WC WCB# [id number] SP WCB # [id number] 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 [id number] BS [place] Medigap Part B [id number] Self [id number] Travelers Insurance (WC) Workers Compensation [id number] Self [id number] 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 [id number] SP [id number] 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 [id number] SP [id number] [place] PPO 302/307 [id number] SP [id number] [place] 302/307 [id number] SP [id number] [place] 302/307 [id number] SP [id number] BS Of [facility] ([facility] [place]) Self [place] BCBS B [id number] S VYS [id number] BCBS [place] 304/804 [id number] SP [id number] EX[employer]LLUS H [id number] Self [id number] BLUE CROSS BLUE SHIELD-CLINIC [id number] BCBS [place] 304/804 [id number] SP [id number] SELF PAY 5 UNAVAILABLE 1 UNAVAILA BLE BLUE CROSS BLUE SHIELD-O/P [id number] 18 [id number] BCBS OF [facility] 306/8 P [id number] S [id number] Problems, Conditions, and Diagnoses Code Display Name Description Problem Type Effective Dates Data Source(s) F51.01 7103972 Primary insomnia Problem 01/28/2020 12:00:00 AM EST eCW1 ([facility]) F41.0 106752843 Panic disorder Problem 12/24/2019 12:00:00 A M EST eCW1 ([facility]) F41.9 58373696 Anxiety Problem 12/23/2019 12:00:00 AM ES T eCW1 ([facility]) 04173224 Cervical radiculopathy Cervical radiculopathy Problem 08/26/2019 12:00:00 AM EDT MEDENT (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, ) 63585022 Neck pain Neck pain Problem 08/26/2019 12:00:00 AM ED T [facility] ([facility], ) 522780693 Essential tremor Essential tremor Problem 08/26/2019 12 :00:00 AM EDT [facility] ([facility], ) R25.1 [id number] Tremor of both hands Problem 08/25/2019 12:0 0:00 AM EDT eCW1 ([facility]) F41.9 43569309 Anxiety Problem 08/04/2019 12:00:00 AM ED T eCW1 ([facility]) M46.1 [id number] Bilateral sacroiliitis Problem 05/28/2019 12:00:00 AM EDT eCW1 ([facility]) M54.5 099089429 Low back pain Problem 05/28/2019 12:00:00 AM EDT eCW1 ([facility]) M54.5 [id number] Low back pain Problem 05/28/2019 12:00:00 AM EDT eCW1 ([facility]) M46.1 [id number] Bilateral sacroiliitis Problem 05/28/2019 12:00:00 AM EDT eCW1 ([facility]) M46.1 [id number] Sacroiliitis Problem 04/21/2019 12:00:00 AM EDT eCW1 ([facility]) E78.00 [id number] Pure hypercholesterolemia Problem 03/26/2019 12:00:00 AM EST eCW1 ([facility]) J44.9 [id number] Chronic obstructive pulmonary di sease, unspecified COPD type Problem 03/26/2019 12:00:00 AM EST eCW1 ([facility]) E78.00 [id number] Pure hypercholesterolemia Problem 03/26/2019 12:00:00 AM EST eCW1 ([facility]) J44.9 [id number] Chronic obstructive pulmonary di sease, unspecified COPD type Problem 03/26/2019 12:00:00 AM EST eCW1 ([facility]) M75.41 Impingement syndrome of right shoulder I mpingement syndrome of right shoulder Diagnosis 04/01/2019 10:41:11 AM [facility] 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, 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, right upper limb Diagnosis 04/01/2019 10:41:11 AM [facility] Surgeries/Procedures Procedure Description Date Indications Data Source(s) Immunization: Flublok Quadrivalent (18 years & older) 0.5mL IM (Influenza) 01/15/2020 12:00:00 AM EST eCW1 ([facility]) INJ TRIGGER POINT /2 MUSCL 06/24/2019 12:00:00 AM EDT eCW1 ([facility]) PHYSICIAN TELEPHONE EVALUATION 11-20 MIN 06/12/2019 12 :00:00 AM EDT eCW1 ([facility]) ESTABILISHED PATIENT [facility] FACILITY CHARGE 020 12:00:00 AM EDT eCW1 ([facility]) SURGERY CASE REQUEST OUTSIDE FACILITY ONLY SURGERY CA SE REQUEST OUTSIDE FACILITY ONLY Routine 04/01/2019 11:37 AM EST Cubital tunnel syndrome on right 04/01/2019 04:37:19 PM EST Cubital tunnel syndrome on right [facility] Cubital tunnel syndrome on right Lumbar/Sacral w/ Imaging 03/25/2019 12:00:00 AM EST eCW1 ([facility]) RADXPS IN END [id number] 03/25/2019 12:00:00 AM ES T eCW1 ([facility]) Results ID Date Data Source [id number] 02/29/2020 05:49:00 PM EST [facility] Name Value Range Interpretation Code Description Data Abbey rce(s) Supporting Document(s) SARS-CoV-2 (COVID 19) NEGATIVE - SARS-CoV-2 (COVID19) [facility] This lab was ordered by [facility] a nd reported by [facility]. ID Date Data Source Comprehensive Metabolic Profile (CMP) 12/18/2019 08:27:18 AM EST eCW1 ([facility]) Name Value Range Interpretation Code Description Data Abbey rce(s) Supporting Document(s) 92 GLUCOSE, FASTING eCW1 ([facility]) 15 BLOOD UREA NITROGEN eCW1 ([facility]) 1.01 CREATININE FOR GFR eCW1 ([facility]) 102 CHLORIDE LEVEL eCW1 ([facility]) 135 SODIUM LEVEL eCW1 (Replaced by [facility]) 5.2 POTASSIUM SERUM eCW1 ([facility]) > 60.0 GLOMERULAR FILTRATION RATE eCW 1 ([facility]) 28 CARBON DIOXIDE LEVEL eCW1 ([facility]) 14 ALT/SGPT eCW1 ([facility]) 9 AST/SGOT eCW1 ([facility]) 9.5 CALCIUM LEVEL eCW1 ([facility]) 7.5 TOTAL PROTEIN eCW1 ([facility]) 0.3 BILIRUBIN,TOTAL eCW1 ([facility]) 101 ALKALINE PHOSPHATASE eCW1 ([facility]) 4.3 ALBUMIN eCW1 ([facility]) 1.3 ALBUMIN/GLOBULIN RATIO eCW1 ([facility]) ID Date Data Source [id number] 12/06/2019 10:45:00 AM EDT [facility] Name Value Range Interpretation Code Description Data Abbey rce(s) Supporting Document(s) SARS coronavirus 2 RNA [facility] This lab was ordered by [facility] and reported by [facility]. ID Date Data Source [facility] FLUORO GUIDE SPINE INJECTION (PAIN) 11/12/2019 05:47:51 AM EDT eCW1 ([facility]) Name Value Range Interpretation Code Description Data Abbey rce(s) Supporting Document(s) [facility] FLUORO GUIDE SPINE IN JECTION (PAIN) eCW1 ([facility]) ID Date Data Source [id number] 11/07/2019 10:00:00 AM EDT [facility] Name Value Range Interpretation Code Description Data Abbey rce(s) Supporting Document(s) SARS coronavirus 2 RNA [facility] This lab was ordered by [facility] and reported by [facility]. ID Date Data Source [id number] 07/11/2019 11:25:00 AM EDT [facility] Name Value Range Interpretation Code Description Data Abbey rce(s) Supporting Document(s) SARS CORONAVIRUS 2 RNA [facility] This lab was ordered by [facility] and reported by [facility]. ID Date Data Source [id number] 04/04/2019 03:33:54 PM [facility] Name Value Range Interpretation Code Description Data Abbey rce(s) Supporting Document(s) Progress Note [facility] [id number] [facility] [file] [id number] Procedure Social History Code Duration Value Status Description Data Source(s ) Smoking 02/16/2020 12:00:00 AM EST Current Smoker completed Curre nt Smoker eCW1 ([facility]) Smoking 02/16/2020 12:00:00 AM EST Current Smoker completed Curre nt Smoker eCW1 ([facility]) Smoking 02/16/2020 12:00:00 AM EST Current Smoker completed Curre nt Smoker eCW1 ([facility]) Smoking 02/16/2020 12:00:00 AM EST Current Smoker completed Curre nt Smoker eCW1 ([facility]) Smoking 02/16/2020 12:00:00 AM EST Current Smoker completed Curre nt Smoker eCW1 ([facility]) Smoking 02/16/2020 12:00:00 AM EST Current Smoker completed Curre nt Smoker eCW1 ([facility]) Smoking 01/28/2020 12:00:00 AM EST Current Smoker completed Curre nt Smoker eCW1 ([facility]) Smoking 01/28/2020 12:00:00 AM EST Current Smoker completed Curre nt Smoker eCW1 ([facility]) Smoking 01/28/2020 12:00:00 AM EST Current Smoker completed Curre nt Smoker eCW1 ([facility]) Smoking 01/28/2020 12:00:00 AM EST Current Smoker completed Curre nt Smoker eCW1 ([facility]) Smoking 01/28/2020 12:00:00 AM EST Current Smoker completed Curre nt Smoker eCW1 ([facility]) Smoking 01/28/2020 12:00:00 AM EST Current Smoker completed Curre nt Smoker eCW1 ([facility]) Smoking 01/15/2020 12:00:00 AM EST Current Smoker completed Curre nt Smoker eCW1 ([facility]) Smoking 01/15/2020 12:00:00 AM EST Current Smoker completed Curre nt Smoker eCW1 ([facility]) Smoking 01/15/2020 12:00:00 AM EST Current Smoker completed Curre nt Smoker eCW1 ([facility]) Smoking 01/15/2020 12:00:00 AM EST Current Smoker completed Curre nt Smoker eCW1 ([facility]) Smoking 01/15/2020 12:00:00 AM EST Current Smoker completed Curre nt Smoker eCW1 ([facility]) Smoking 01/15/2020 12:00:00 AM EST Current Smoker completed Curre nt Smoker eCW1 ([facility]) Smoking 01/15/2020 12:00:00 AM EST Current Smoker completed Curre nt Smoker eCW1 ([facility]) Smoking 01/15/2020 12:00:00 AM EST Current Smoker completed Curre nt Smoker eCW1 ([facility]) Smoking 01/15/2020 12:00:00 AM EST Current Smoker completed Curre nt Smoker eCW1 ([facility]) Smoking 01/15/2020 12:00:00 AM EST Current Smoker completed Curre nt Smoker eCW1 ([facility]) Smoking 01/15/2020 12:00:00 AM EST Current Smoker completed Curre nt Smoker eCW1 ([facility]) Smoking 01/15/2020 12:00:00 AM EST Current Smoker completed Curre nt Smoker eCW1 ([facility]) Smoking 01/15/2020 12:00:00 AM EST Current Smoker completed Curre nt Smoker eCW1 ([facility]) Smoking 01/15/2020 12:00:00 AM EST Current Smoker completed Curre nt Smoker eCW1 ([facility]) Smoking 12/24/2019 12:00:00 AM EST Current Smoker completed Curre nt Smoker eCW1 ([facility]) Smoking 12/24/2019 12:00:00 AM EST Current Smoker completed Curre nt Smoker eCW1 ([facility]) Smoking 12/24/2019 12:00:00 AM EST Current Smoker completed Curre nt Smoker eCW1 ([facility]) Smoking 12/24/2019 12:00:00 AM EST Current Smoker completed Curre nt Smoker eCW1 ([facility]) Smoking 12/24/2019 12:00:00 AM EST Current Smoker completed Curre nt Smoker eCW1 ([facility]) Smoking 12/24/2019 12:00:00 AM EST Current Smoker completed Curre nt Smoker eCW1 ([facility]) Smoking 12/24/2019 12:00:00 AM EST Current Smoker completed Curre nt Smoker eCW1 ([facility]) Smoking 12/24/2019 12:00:00 AM EST Current Smoker completed Curre nt Smoker eCW1 ([facility]) Smoking 12/24/2019 12:00:00 AM EST Current Smoker completed Curre nt Smoker eCW1 ([facility]) Smoking 12/24/2019 12:00:00 AM EST Current Smoker completed Curre nt Smoker eCW1 ([facility]) Smoking 12/24/2019 12:00:00 AM EST Current Smoker completed Curre nt Smoker eCW1 ([facility]) Smoking 12/24/2019 12:00:00 AM EST Current Smoker completed Curre nt Smoker eCW1 ([facility]) Smoking 12/24/2019 12:00:00 AM EST Current Smoker completed Curre nt Smoker eCW1 ([facility]) Smoking 12/24/2019 12:00:00 AM EST Current Smoker completed Curre nt Smoker eCW1 ([facility]) Smoking 12/24/2019 12:00:00 AM EST Current Smoker completed Curre nt Smoker eCW1 ([facility]) Smoking 12/24/2019 12:00:00 AM EST Current Smoker completed Curre nt Smoker eCW1 ([facility]) Smoking 12/24/2019 12:00:00 AM EST Current Smoker completed Curre nt Smoker eCW1 ([facility]) Smoking 12/24/2019 12:00:00 AM EST Current Smoker completed Curre nt Smoker eCW1 ([facility]) Smoking 12/24/2019 12:00:00 AM EST Current Smoker completed Curre nt Smoker eCW1 ([facility]) Smoking 12/24/2019 12:00:00 AM EST Current Smoker completed Curre nt Smoker eCW1 ([facility]) Smoking 12/24/2019 12:00:00 AM EST Current Smoker completed Curre nt Smoker eCW1 ([facility]) Smoking 12/24/2019 12:00:00 AM EST Current Smoker completed Curre nt Smoker eCW1 ([facility]) Smoking 12/24/2019 12:00:00 AM EST Current Smoker completed Curre nt Smoker eCW1 ([facility]) Smoking 12/24/2019 12:00:00 AM EST Current Smoker completed Curre nt Smoker eCW1 ([facility]) Smoking 12/24/2019 12:00:00 AM EST Current Smoker completed Curre nt Smoker eCW1 ([facility]) Smoking 12/22/2019 12:00:00 AM EST Current Smoker completed Curre nt Smoker eCW1 ([facility]) Smoking 12/22/2019 12:00:00 AM EST Current Smoker completed Curre nt Smoker eCW1 ([facility]) Smoking 12/22/2019 12:00:00 AM EST Current Smoker completed Curre nt Smoker eCW1 ([facility]) Smoking 12/18/2019 12:00:00 AM EST Current Smoker completed Curre nt Smoker eCW1 ([facility]) Smoking 12/18/2019 12:00:00 AM EST Current Smoker completed Curre nt Smoker eCW1 ([facility]) Smoking 12/18/2019 12:00:00 AM EST Current Smoker completed Curre nt Smoker eCW1 ([facility]) Smoking 12/18/2019 12:00:00 AM EST Current Smoker completed Curre nt Smoker eCW1 ([facility]) Smoking 12/18/2019 12:00:00 AM EST Current Smoker completed Curre nt Smoker eCW1 ([facility]) Smoking 12/18/2019 12:00:00 AM EST Current Smoker completed Curre nt Smoker eCW1 ([facility]) Smoking 12/11/2019 12:00:00 AM EDT Current Smoker completed Curre nt Smoker eCW1 ([facility]) Smoking 12/11/2019 12:00:00 AM EDT Current Smoker completed Curre nt Smoker eCW1 ([facility]) Smoking 12/11/2019 12:00:00 AM EDT Current Smoker completed Curre nt Smoker eCW1 ([facility]) Smoking 12/11/2019 12:00:00 AM EDT Current Smoker completed Curre nt Smoker eCW1 ([facility]) Smoking 12/09/2019 12:00:00 AM EDT Current Smoker completed Curre nt Smoker eCW1 ([facility]) Smoking 11/30/2019 12:00:00 AM EDT Current Smoker completed Curre nt Smoker eCW1 ([facility]) Smoking 11/30/2019 12:00:00 AM EDT Current Smoker completed Curre nt Smoker eCW1 ([facility]) Smoking 11/30/2019 12:00:00 AM EDT Current Smoker completed Curre nt Smoker eCW1 ([facility]) Smoking 11/30/2019 12:00:00 AM EDT Current Smoker completed Curre nt Smoker eCW1 ([facility]) Smoking 11/30/2019 12:00:00 AM EDT Current Smoker completed Curre nt Smoker eCW1 ([facility]) Smoking 11/30/2019 12:00:00 AM EDT Current Smoker completed Curre nt Smoker eCW1 ([facility]) Smoking 11/24/2019 12:00:00 AM EDT Current Smoker completed Curre nt Smoker eCW1 ([facility]) Smoking 11/12/2019 12:00:00 AM EDT Current Smoker completed Curre nt Smoker eCW1 ([facility]) Smoking 11/12/2019 12:00:00 AM EDT Current Smoker completed Curre nt Smoker eCW1 ([facility]) Smoking 09/04/2019 12:00:00 AM EDT Current Smoker completed Curre nt Smoker eCW1 ([facility]) Smoking 09/04/2019 12:00:00 AM EDT Current Smoker completed Curre nt Smoker eCW1 ([facility]) Smoking 09/04/2019 12:00:00 AM EDT Current Smoker completed Curre nt Smoker eCW1 ([facility]) Smoking 09/04/2019 12:00:00 AM EDT Current Smoker completed Curre nt Smoker eCW1 ([facility]) Smoking 09/04/2019 12:00:00 AM EDT Current Smoker completed Curre nt Smoker eCW1 ([facility]) Smoking 09/04/2019 12:00:00 AM EDT Current Smoker completed Curre nt Smoker eCW1 ([facility]) Smoking 09/04/2019 12:00:00 AM EDT Current Smoker completed Curre nt Smoker eCW1 ([facility]) Smoking 08/31/2019 12:00:00 AM EDT Current Smoker completed Curre nt Smoker eCW1 ([facility]) Smoking 08/31/2019 12:00:00 AM EDT Current Smoker completed Curre nt Smoker eCW1 ([facility]) Smoking 08/31/2019 12:00:00 AM EDT Current Smoker completed Curre nt Smoker eCW1 ([facility]) Smoking 08/25/2019 12:00:00 AM EDT Current Smoker completed Curre nt Smoker eCW1 ([facility]) Smoking 08/25/2019 12:00:00 AM EDT Current Smoker completed Curre nt Smoker eCW1 ([facility]) Smoking 08/25/2019 12:00:00 AM EDT Current Smoker completed Curre nt Smoker eCW1 ([facility]) Smoking 08/25/2019 12:00:00 AM EDT Current Smoker completed Curre nt Smoker eCW1 ([facility]) Smoking 08/25/2019 12:00:00 AM EDT Current Smoker completed Curre nt Smoker eCW1 ([facility]) Smoking 08/04/2019 12:00:00 AM EDT Current Smoker completed Curre nt Smoker eCW1 ([facility]) Smoking 07/13/2019 12:00:00 AM EDT Current Smoker completed Curre nt Smoker eCW1 ([facility]) Smoking 07/13/2019 12:00:00 AM EDT Current Smoker completed Curre nt Smoker eCW1 ([facility]) Smoking 07/13/2019 12:00:00 AM EDT Current Smoker completed Curre nt Smoker eCW1 ([facility]) Smoking 07/13/2019 12:00:00 AM EDT Current Smoker completed Curre nt Smoker eCW1 ([facility]) Alcohol intake 04/04/2019 12:00:00 AM EST Current non-d alma of alcohol (finding) completed Current non-drinker of alcohol (finding) [facility] Cigarette pack-years 04/04/2019 12:00:00 AM EST UNK completed [facility] Cigarettes smoked current (pack per day) - Reported 04/04/19 12:00:00 AM EST UNK completed [facility] Smoking 04/04/2019 12:00:00 AM EST Current every day smoker co mpleted Current every day smoker [facility] Vital Signs ID Date Data Source UNK Name Value Range Interpretation Code Description Data Source(s) Diastolic blood pressure 84 mm[Hg] 84 mm[Hg] eCW1 ([facility]) Systolic blood pressure 130 mm[Hg] 130 mm[Hg] e CW1 ([facility]) Body temperature 97.5 [degF] 97.5 [degF] eCW1 ( [facility]) Respiratory rate 18 /min 18 /min eCW1 ([facility]) Heart rate 102 /min 102 /min eCW1 ([facility]) Body mass index (BMI) [Ratio] 23.03 kg/m2 23.03 kg/m2 W1 ([facility]) Body height 69 [in_i] 69 [in_i] eCW1 ([facility]) Body weight 156 [lb_av] 156 [lb_av] eCW1 ([facility]) Diastolic blood pressure 78 mm[Hg] 78 mm[Hg] eCW1 ([facility]) Systolic blood pressure 132 mm[Hg] 132 mm[Hg] e CW1 ([facility]) Body temperature 98.0 [degF] 98.0 [degF] eCW1 ( [facility]) Respiratory rate 18 /min 18 /min eCW1 ([facility]) Heart rate 99 /min 99 /min eCW1 ([facility]) Body mass index (BMI) [Ratio] 23.33 kg/m2 23.33 kg/m2 eCW1 ([facility]) Body height 69 [in_i] 69 [in_i] eCW1 ([facility]) Body weight 158 [lb_av] 158 [lb_av] eCW1 ([facility]) Diastolic blood pressure 90 mm[Hg] 90 mm[Hg] eCW1 ([facility]) Systolic blood pressure 140 mm[Hg] 140 mm[Hg] e CW1 ([facility]) Body temperature [degF] eCW1 ([facility]) Respiratory rate 18 /min 18 /min eCW1 ([facility]) Heart rate 112 /min 112 /min eCW1 ([facility]) Body mass index (BMI) [Ratio] 23.18 kg/m2 23.18 kg/m2 eCW1 ([facility]) Body height 69 [in_i] 69 [in_i] eCW1 ([facility]) Body weight 157 [lb_av] 157 [lb_av] eCW1 ([facility]) Diastolic blood pressure 80 mm[Hg] 80 mm[Hg] eCW1 ([facility]) Systolic blood pressure 130 mm[Hg] 130 mm[Hg] e CW1 ([facility]) Body temperature 98.2 [degF] 98.2 [degF] eCW1 ( [facility]) Respiratory rate 18 /min 18 /min eCW1 ([facility]) Heart rate 104 /min 104 /min eCW1 ([facility]) Body mass index (BMI) [Ratio] 23.45 kg/m2 23.45 kg/m2 eCW1 ([facility]) Body height 69 [in_i] 69 [in_i] eCW1 ([facility]) Body weight 158.8 [lb_av] 158.8 [lb_av] eCW1 ([facility]) Diastolic blood pressure 100 mm[Hg] 100 mm[Hg] eCW1 ([facility]) Systolic blood pressure 150 mm[Hg] 150 mm[Hg] e CW1 ([facility]) Body temperature 98.2 [degF] 98.2 [degF] eCW1 ( [facility]) Respiratory rate 18 /min 18 /min eCW1 ([facility]) Heart rate 92 /min 92 /min eCW1 ([facility]) Body mass index (BMI) [Ratio] 23.74 kg/m2 23.74 kg/m2 eCW1 ([facility]) Body height 69 [in_i] 69 [in_i] eCW1 ([facility]) Body weight 160.8 [lb_av] 160.8 [lb_av] eCW1 ([facility]) Diastolic blood pressure 98 mm[Hg] 98 mm[Hg] eCW1 ([facility]) Systolic blood pressure 146 mm[Hg] 146 mm[Hg] e CW1 ([facility]) Body temperature 97.6 [degF] 97.6 [degF] eCW1 ( [facility]) Respiratory rate 18 /min 18 /min eCW1 ([facility]) Heart rate 75 /min 75 /min eCW1 ([facility]) Body mass index (BMI) [Ratio] 23.86 kg/m2 23.86 kg/m2 eCW1 ([facility]) Body height 69 [in_i] 69 [in_i] eCW1 ([facility]) Body weight 161.6 [lb_av] 161.6 [lb_av] eCW1 ([facility]) Diastolic blood pressure 93 mm[Hg] 93 mm[Hg] eCW1 ([facility]) Systolic blood pressure 136 mm[Hg] 136 mm[Hg] e CW1 ([facility]) Body temperature 98.6 [degF] 98.6 [degF] eCW1 ( [facility]) Respiratory rate 16 /min 16 /min eCW1 ([facility]) Heart rate 69 /min 69 /min eCW1 ([facility]) Body mass index (BMI) [Ratio] 23.63 kg/m2 23.63 kg/m2 eCW1 ([facility]) Body height 69 [in_i] 69 [in_i] eCW1 ([facility]) Body weight 160 [lb_av] 160 [lb_av] eCW1 ([facility]) Diastolic blood pressure 96 mm[Hg] 96 mm[Hg] eCW1 ([facility]) Systolic blood pressure 148 mm[Hg] 148 mm[Hg] e CW1 ([facility]) Body temperature 98.3 [degF] 98.3 [degF] eCW1 ( [facility]) Respiratory rate 18 /min 18 /min eCW1 ([facility]) Heart rate 73 /min 73 /min eCW1 ([facility]) Body mass index (BMI) [Ratio] 23.42 kg/m2 23.42 kg/m2 eCW1 ([facility]) Body height 69 [in_i] 69 [in_i] eCW1 ([facility]) Body weight 158.6 [lb_av] 158.6 [lb_av] eCW1 ([facility]) Diastolic blood pressure 80 mm[Hg] 80 mm[Hg] eCW1 ([facility]) Systolic blood pressure 120 mm[Hg] 120 mm[Hg] e CW1 ([facility]) Body temperature 97.8 [degF] 97.8 [degF] eCW1 ( [facility]) Respiratory rate 18 /min 18 /min eCW1 ([facility]) Heart rate 103 /min 103 /min eCW1 ([facility]) Body mass index (BMI) [Ratio] 24.19 kg/m2 24.19 kg/m2 eCW1 ([facility]) Body height 69 [in_i] 69 [in_i] eCW1 ([facility]) Body weight 163.8 [lb_av] 163.8 [lb_av] eCW1 ([facility]) Diastolic blood pressure 84 mm[Hg] 84 mm[Hg] eCW1 ([facility]) Systolic blood pressure 198 mm[Hg] 198 mm[Hg] e CW1 ([facility]) Body temperature 97.0 [degF] 97.0 [degF] eCW1 ( [facility]) Respiratory rate 18 /min 18 /min eCW1 ([facility]) Heart rate 89 /min 89 /min eCW1 ([facility]) Body mass index (BMI) [Ratio] 24.25 kg/m2 24.25 kg/m2 eCW1 ([facility]) Body height 69 [in_i] 69 [in_i] eCW1 ([facility]) Body weight 164.2 [lb_av] 164.2 [lb_av] eCW1 ([facility]) Body mass index (BMI) [Ratio] 24.9 kg/m2 24.9 k g/m2 MEDENT ([facility], ) Body weight 164.00 [lb_av] 164.00 [lb_av] MEDEN T ([facility], ) Body height 68 [in_i] 68 [in_i] MEDENT ([facility], ) 5'8" Respiratory rate 14 /min 14 /min MEDENT ( [facility], ) Heart rate 78 /min 78 /min MEDENT ([facility], ) Diastolic blood pressure 80 mm[Hg] 80 mm[Hg] MEDENT ([facility], ) Systolic blood pressure 120 mm[Hg] 120 mm[Hg] M EDENT ([facility], ) Diastolic blood pressure 82 mm[Hg] 82 mm[Hg] eCW1 ([facility]) Systolic blood pressure 120 mm[Hg] 120 mm[Hg] e CW1 ([facility]) Body temperature 98 [degF] 98 [degF] eCW1 ([facility]) Respiratory rate 18 /min 18 /min eCW1 ([facility]) Heart rate 125 /min 125 /min eCW1 ([facility]) Body mass index (BMI) [Ratio] 24.19 kg/m2 24.19 kg/m2 eCW1 ([facility]) Body height 69 [in_i] 69 [in_i] eCW1 ([facility]) Body weight 163.8 [lb_av] 163.8 [lb_av] eCW1 ([facility]) Diastolic blood pressure 78 mm[Hg] 78 mm[Hg] eCW1 ([facility]) Systolic blood pressure 130 mm[Hg] 130 mm[Hg] e CW1 ([facility]) Body temperature 98.5 [degF] 98.5 [degF] eCW1 ( [facility]) Respiratory rate 18 /min 18 /min eCW1 ([facility]) Heart rate 102 /min 102 /min eCW1 ([facility]) Body mass index (BMI) [Ratio] 24.57 kg/m2 24.57 kg/m2 eCW1 ([facility]) Body height 69 [in_i] 69 [in_i] eCW1 ([facility]) Body weight 166.4 [lb_av] 166.4 [lb_av] eCW1 ([facility]) Diastolic blood pressure 70 mm[Hg] 70 mm[Hg] eCW1 ([facility]) Systolic blood pressure 110 mm[Hg] 110 mm[Hg] e CW1 ([facility]) Body temperature 97.3 [degF] 97.3 [degF] eCW1 ( [facility]) Respiratory rate 18 /min 18 /min eCW1 ([facility]) Heart rate 107 /min 107 /min eCW1 ([facility]) Body mass index (BMI) [Ratio] 24.22 kg/m2 24.22 kg/m2 eCW1 ([facility]) Body height 69 [in_i] 69 [in_i] eCW1 ([facility]) Body weight 164 [lb_av] 164 [lb_av] eCW1 ([facility]) Diastolic blood pressure 85 mm[Hg] 85 mm[Hg] eCW1 ([facility]) Systolic blood pressure 112 mm[Hg] 112 mm[Hg] e CW1 ([facility]) Body temperature 98.3 [degF] 98.3 [degF] eCW1 ( [facility]) Respiratory rate 18 /min 18 /min eCW1 ([facility]) Heart rate 107 /min 107 /min eCW1 ([facility]) Body mass index (BMI) [Ratio] 23.95 kg/m2 23.95 kg/m2 eCW1 ([facility]) Body height 69 [in_i] 69 [in_i] eCW1 ([facility]) Body weight 162.2 [lb_av] 162.2 [lb_av] eCW1 ([facility]) Diastolic blood pressure 88 mm[Hg] 88 mm[Hg] eCW1 ([facility]) Systolic blood pressure 135 mm[Hg] 135 mm[Hg] e CW1 ([facility]) Body temperature 97.5 [degF] 97.5 [degF] eCW1 ( [facility]) Respiratory rate 18 /min 18 /min eCW1 ([facility]) Heart rate 86 /min 86 /min eCW1 ([facility]) Body mass index (BMI) [Ratio] 24.22 kg/m2 24.22 kg/m2 eCW1 ([facility]) Body height 69 [in_us] 69 [in_us] eCW1 ([facility]) Body weight Measured 164 [lb_av] 164 [lb_av] eC W1 ([facility]) Diastolic blood pressure 86 mm[Hg] 86 mm[Hg] eCW1 ([facility]) Systolic blood pressure 131 mm[Hg] 131 mm[Hg] e CW1 ([facility]) Body temperature 97.9 [degF] 97.9 [degF] eCW1 ( [facility]) Respiratory rate 16 /min 16 /min eCW1 ([facility]) Heart rate 93 /min 93 /min eCW1 ([facility]) Body mass index (BMI) [Ratio] 24.22 kg/m2 24.22 kg/m2 eCW1 ([facility]) Body height 69 [in_us] 69 [in_us] eCW1 ([facility]) Body weight Measured 164 [lb_av] 164 [lb_av] eC W1 ([facility]) Diastolic blood pressure 94 mm[Hg] 94 mm[Hg] eCW1 ([facility]) Systolic blood pressure 137 mm[Hg] 137 mm[Hg] e CW1 ([facility]) Body temperature 98.5 [degF] 98.5 [degF] eCW1 ( [facility]) Respiratory rate 16 /min 16 /min eCW1 ([facility]) Heart rate 90 /min 90 /min eCW1 ([facility]) Body mass index (BMI) [Ratio] 24.22 kg/m2 24.22 kg/m2 W1 ([facility]) Body height 69 [in_us] 69 [in_us] eCW1 ([facility]) Body weight Measured 164 [lb_av] 164 [lb_av] eC W1 ([facility]) Diastolic blood pressure 76 mm[Hg] 76 mm[Hg] eCW1 ([facility]) Systolic blood pressure 132 mm[Hg] 132 mm[Hg] e CW1 ([facility]) Body temperature 97.9 [degF] 97.9 [degF] eCW1 ( [facility]) Respiratory rate 18 /min 18 /min eCW1 ([facility]) Heart rate 81 /min 81 /min eCW1 ([facility]) Body mass index (BMI) [Ratio] 24.36 kg/m2 24.36 kg/m2 eCW1 ([facility]) Body height 69 [in_us] 69 [in_us] eCW1 ([facility]) Body weight Measured 165 [lb_av] 165 [lb_av] eC W1 ([facility]) Diastolic blood pressure 86 mm[Hg] 86 mm[Hg] eCW1 ([facility]) Systolic blood pressure 138 mm[Hg] 138 mm[Hg] e CW1 ([facility]) Body temperature 97.1 [degF] 97.1 [degF] eCW1 ( [facility]) Respiratory rate 18 /min 18 /min eCW1 ([facility]) Heart rate 77 /min 77 /min eCW1 ([facility]) Body mass index (BMI) [Ratio] 24.36 kg/m2 24.36 kg/m2 eCW1 ([facility]) Body height 69 [in_us] 69 [in_us] eCW1 ([facility]) Body weight Measured 165.0 [lb_av] 165.0 [lb_av ] eCW1 ([facility]) Diastolic blood pressure 91 mm[Hg] 91 mm[Hg] eCW1 ([facility]) Systolic blood pressure 145 mm[Hg] 145 mm[Hg] e CW1 ([facility]) Body temperature 97.9 [degF] 97.9 [degF] eCW1 ( [facility]) Respiratory rate 18 /min 18 /min eCW1 ([facility]) Heart rate 76 /min 76 /min eCW1 ([facility]) Body mass index (BMI) [Ratio] 24.13 kg/m2 24.13 kg/m2 eCW1 ([facility]) Body height 69 [in_us] 69 [in_us] eCW1 ([facility]) Body weight Measured 163.4 [lb_av] 163.4 [lb_av ] eCW1 ([facility]) Diastolic blood pressure 101 mm[Hg] 101 mm[Hg] eCW1 ([facility]) Systolic blood pressure 141 mm[Hg] 141 mm[Hg] e CW1 ([facility]) Body temperature 97.9 [degF] 97.9 [degF] eCW1 ( [facility]) Respiratory rate 18 /min 18 /min eCW1 ([facility]) Heart rate 82 /min 82 /min eCW1 ([facility]) Body mass index (BMI) [Ratio] 24.13 kg/m2 24.13 kg/m2 eCW1 ([facility]) Body height 69 [in_us] 69 [in_us] eCW1 ([facility]) Body weight Measured 163.4 [lb_av] 163.4 [lb_av ] eCW1 ([facility]) ID Date Data Source [id number] 06/01/2019 11:45:02 AM T [facility] Name Value Range Interpretation Code Description Data Source(s) WEIGHT RECORDED 165 lb 165 lb [facility] Body height Measured 69 in 69 in [facility] Patient Treatment Plan of Care Planned Activity Planned Date Details Description Data Source (s) Morphine Sulfate 15 MG Oral Tablet 02/23/2020 12:00:00 AM EST eCW1 ([facility]) Acetaminophen 325 MG / Oxycodone Hydrochloride 10 MG O ral Tablet [Percocet] 02/23/2020 12:00:00 AM EST eCW1 ([facility]) Morphine Sulfate 15 MG Oral Tablet 02/23/2020 12:00:00 AM EST eCW1 ([facility]) Acetaminophen 325 MG / Oxycodone Hydrochloride 10 MG O ral Tablet [Percocet] 02/23/2020 12:00:00 AM EST eCW1 ([facility]) Morphine Sulfate 15 MG Oral Tablet 02/23/2020 12:00:00 AM EST eCW1 ([facility]) Acetaminophen 325 MG / Oxycodone Hydrochloride 10 MG O ral Tablet [Percocet] 02/23/2020 12:00:00 AM EST eCW1 ([facility]) Morphine Sulfate 15 MG Oral Tablet 02/23/2020 12:00:00 AM EST eCW1 ([facility]) Acetaminophen 325 MG / Oxycodone Hydrochloride 10 MG O ral Tablet [Percocet] 02/23/2020 12:00:00 AM EST eCW1 ([facility]) Morphine Sulfate 15 MG Oral Tablet 02/23/2020 12:00:00 AM EST eCW1 ([facility]) Acetaminophen 325 MG / Oxycodone Hydrochloride 10 MG O ral Tablet [Percocet] 02/23/2020 12:00:00 AM EST eCW1 ([facility]) Morphine Sulfate 15 MG Oral Tablet 02/23/2020 12:00:00 AM EST eCW1 ([facility]) Acetaminophen 325 MG / Oxycodone Hydrochloride 10 MG O ral Tablet [Percocet] 02/23/2020 12:00:00 AM EST eCW1 ([facility]) Budesonide 180 MCG/ACT 02/16/2020 12:00:00 AM EST eCW1 ([facility]) Budesonide 180 MCG/ACT 02/16/2020 12:00:00 AM EST eCW1 ([facility]) Budesonide 180 MCG/ACT 02/16/2020 12:00:00 AM EST eCW1 ([facility]) Budesonide 180 MCG/ACT 02/16/2020 12:00:00 AM EST eCW1 ([facility]) Budesonide 180 MCG/ACT 02/16/2020 12:00:00 AM EST eCW1 ([facility]) Budesonide 180 MCG/ACT 02/16/2020 12:00:00 AM EST eCW1 ([facility]) Albuterol 0.833 MG/ML / Ipratropium [place] 0.167 MG/M L Inhalant Solution 01/28/2020 12:00:00 AM EST eCW1 ([facility]) Albuterol 0.833 MG/ML / Ipratropium [place] 0.167 MG/M L Inhalant Solution 01/28/2020 12:00:00 AM EST eCW1 ([facility]) Albuterol 0.833 MG/ML / Ipratropium [place] 0.167 MG/M L Inhalant Solution 01/28/2020 12:00:00 AM EST eCW1 ([facility]) Albuterol 0.833 MG/ML / Ipratropium [place] 0.167 MG/M L Inhalant Solution 01/28/2020 12:00:00 AM EST eCW1 ([facility]) Albuterol 0.833 MG/ML / Ipratropium [place] 0.167 MG/M L Inhalant Solution 01/28/2020 12:00:00 AM EST eCW1 ([facility]) Albuterol 0.833 MG/ML / Ipratropium [place] 0.167 MG/M L Inhalant Solution 01/28/2020 12:00:00 AM EST eCW1 ([facility]) Morphine Sulfate ER 15 MG 01/27/2020 12:00:00 AM EST eCW1 ([facility]) Morphine Sulfate 15 MG Extended Release Oral Tablet 01/27/20 12:00:00 AM EST eCW1 ([facility]) Morphine Sulfate 15 MG Oral Tablet 01/27/2020 12:00:00 AM EST eCW1 ([facility]) Morphine Sulfate ER 15 MG 01/27/2020 12:00:00 AM EST eCW1 ([facility]) Morphine Sulfate 15 MG Extended Release Oral Tablet 01/27/20 12:00:00 AM EST eCW1 ([facility]) Morphine Sulfate 15 MG Oral Tablet 01/27/2020 12:00:00 AM EST eCW1 ([facility]) Morphine Sulfate ER 15 MG 01/26/2020 12:00:00 AM EST eCW1 ([facility]) Acetaminophen 325 MG / Oxycodone Hydrochloride 10 MG O ral Tablet [Percocet] 01/22/2020 12:00:00 AM EST eCW1 ([facility]) Acetaminophen 325 MG / Oxycodone Hydrochloride 10 MG O ral Tablet [Percocet] 01/22/2020 12:00:00 AM EST eCW1 ([facility]) Acetaminophen 325 MG / Oxycodone Hydrochloride 10 MG O ral Tablet [Percocet] 01/22/2020 12:00:00 AM EST eCW1 ([facility]) Acetaminophen 325 MG / Oxycodone Hydrochloride 10 MG O ral Tablet [Percocet] 01/22/2020 12:00:00 AM EST eCW1 ([facility]) Acetaminophen 325 MG / Oxycodone Hydrochloride 10 MG O ral Tablet [Percocet] 01/22/2020 12:00:00 AM EST eCW1 ([facility]) Acetaminophen 325 MG / Oxycodone Hydrochloride 10 MG O ral Tablet [Percocet] 01/22/2020 12:00:00 AM EST eCW1 ([facility]) Acetaminophen 325 MG / Oxycodone Hydrochloride 10 MG O ral Tablet [Percocet] 01/22/2020 12:00:00 AM EST eCW1 ([facility]) Morphine Sulfate ER 15 MG 01/20/2020 12:00:00 AM EST eCW1 ([facility]) Morphine Sulfate ER 15 MG 01/20/2020 12:00:00 AM EST eCW1 ([facility]) Morphine Sulfate ER 15 MG 01/20/2020 12:00:00 AM EST eCW1 ([facility]) Morphine Sulfate ER 15 MG 01/20/2020 12:00:00 AM EST eCW1 ([facility]) Morphine Sulfate ER 15 MG 01/20/2020 12:00:00 AM EST eCW1 ([facility]) Morphine Sulfate ER 15 MG 01/20/2020 12:00:00 AM EST eCW1 ([facility]) Morphine Sulfate ER 15 MG 01/20/2020 12:00:00 AM EST eCW1 ([facility]) duloxetine 30 MG Delayed Release Oral Capsule [Cymbalt a] 01/13/2020 12:00:00 AM EST eCW1 ([facility]) Spiriva Respimat 1.25 MCG/ACT 12/29/2019 12:00:00 AM EST eCW1 ([facility]) Spiriva Respimat 1.25 MCG/ACT 12/29/2019 12:00:00 AM EST eCW1 ([facility]) Spiriva Respimat 1.25 MCG/ACT 12/29/2019 12:00:00 AM EST eCW1 ([facility]) Spiriva Respimat 1.25 MCG/ACT 12/29/2019 12:00:00 AM EST eCW1 ([facility]) Spiriva Respimat 1.25 MCG/ACT 12/29/2019 12:00:00 AM EST eCW1 ([facility]) Spiriva Respimat 1.25 MCG/ACT 12/29/2019 12:00:00 AM EST eCW1 ([facility]) Spiriva Respimat 1.25 MCG/ACT 12/29/2019 12:00:00 AM EST eCW1 ([facility]) Spiriva Respimat 1.25 MCG/ACT 12/29/2019 12:00:00 AM EST eCW1 ([facility]) Spiriva Respimat 1.25 MCG/ACT 12/29/2019 12:00:00 AM EST eCW1 ([facility]) Spiriva Respimat 1.25 MCG/ACT 12/29/2019 12:00:00 AM EST eCW1 ([facility]) Spiriva Respimat 1.25 MCG/ACT 12/29/2019 12:00:00 AM EST eCW1 ([facility]) Spiriva Respimat 1.25 MCG/ACT 12/29/2019 12:00:00 AM EST eCW1 ([facility]) Spiriva Respimat 1.25 MCG/ACT 12/29/2019 12:00:00 AM EST eCW1 ([facility]) Acetaminophen 325 MG / Oxycodone Hydrochloride 10 MG O ral Tablet [Percocet] 12/22/2019 12:00:00 AM EST eCW1 ([facility]) Omeprazole 40 MG Delayed Release Oral Capsule 12/22/2019 12:00:00 A M EST eCW1 ([facility]) Sucralfate 1000 MG Oral Tablet 12/22/2019 12:00:00 AM EST eCW1 ([facility]) Acetaminophen 325 MG / Oxycodone Hydrochloride 10 MG O ral Tablet [Percocet] 12/22/2019 12:00:00 AM EST eCW1 ([facility]) Omeprazole 40 MG Delayed Release Oral Capsule 12/22/2019 12:00:00 A M EST eCW1 ([facility]) Sucralfate 1000 MG Oral Tablet 12/22/2019 12:00:00 AM EST eCW1 ([facility]) Acetaminophen 325 MG / Oxycodone Hydrochloride 10 MG O ral Tablet [Percocet] 12/22/2019 12:00:00 AM EST eCW1 ([facility]) Sucralfate 1000 MG Oral Tablet 12/22/2019 12:00:00 AM EST eCW1 ([facility]) Omeprazole 40 MG Delayed Release Oral Capsule 12/22/2019 12:00:00 A M EST eCW1 ([facility]) Acetaminophen 325 MG / Oxycodone Hydrochloride 10 MG O ral Tablet [Percocet] 12/22/2019 12:00:00 AM EST eCW1 ([facility]) Sucralfate 1000 MG Oral Tablet 12/22/2019 12:00:00 AM EST eCW1 ([facility]) Omeprazole 40 MG Delayed Release Oral Capsule 12/22/2019 12:00:00 A M EST eCW1 ([facility]) Acetaminophen 325 MG / Oxycodone Hydrochloride 10 MG O ral Tablet [Percocet] 12/22/2019 12:00:00 AM EST eCW1 ([facility]) Sucralfate 1000 MG Oral Tablet 12/22/2019 12:00:00 AM EST eCW1 ([facility]) Omeprazole 40 MG Delayed Release Oral Capsule 12/22/2019 12:00:00 A M EST eCW1 ([facility]) Acetaminophen 325 MG / Oxycodone Hydrochloride 10 MG O ral Tablet [Percocet] 12/22/2019 12:00:00 AM EST eCW1 ([facility]) Sucralfate 1000 MG Oral Tablet 12/22/2019 12:00:00 AM EST eCW1 ([facility]) Omeprazole 40 MG Delayed Release Oral Capsule 12/22/2019 12:00:00 A M EST eCW1 ([facility]) Omeprazole 40 MG Delayed Release Oral Capsule 12/22/2019 12:00:00 A M EST eCW1 ([facility]) Sucralfate 1000 MG Oral Tablet 12/22/2019 12:00:00 AM EST eCW1 ([facility]) Omeprazole 40 MG Delayed Release Oral Capsule 12/22/2019 12:00:00 A M EST eCW1 ([facility]) Sucralfate 1000 MG Oral Tablet 12/22/2019 12:00:00 AM EST eCW1 ([facility]) Omeprazole 40 MG Delayed Release Oral Capsule 12/22/2019 12:00:00 A M EST eCW1 ([facility]) Sucralfate 1000 MG Oral Tablet 12/22/2019 12:00:00 AM EST eCW1 ([facility]) Omeprazole 40 MG Delayed Release Oral Capsule 12/22/2019 12:00:00 A M EST eCW1 ([facility]) Sucralfate 1000 MG Oral Tablet 12/22/2019 12:00:00 AM EST eCW1 ([facility]) Omeprazole 40 MG Delayed Release Oral Capsule 12/22/2019 12:00:00 A M EST eCW1 ([facility]) Sucralfate 1000 MG Oral Tablet 12/22/2019 12:00:00 AM EST eCW1 ([facility]) Omeprazole 40 MG Delayed Release Oral Capsule 12/22/2019 12:00:00 A M EST eCW1 ([facility]) Sucralfate 1000 MG Oral Tablet 12/22/2019 12:00:00 AM EST eCW1 ([facility]) Omeprazole 40 MG Delayed Release Oral Capsule 12/22/2019 12:00:00 A M EST eCW1 ([facility]) Sucralfate 1000 MG Oral Tablet 12/22/2019 12:00:00 AM EST eCW1 ([facility]) Acetaminophen 325 MG / Oxycodone Hydrochloride 10 MG O ral Tablet [Percocet] 12/22/2019 12:00:00 AM EST eCW1 ([facility]) Omeprazole 40 MG Delayed Release Oral Capsule 12/22/2019 12:00:00 A M EST eCW1 ([facility]) Sucralfate 1000 MG Oral Tablet 12/22/2019 12:00:00 AM EST eCW1 ([facility]) Omeprazole 40 MG Delayed Release Oral Capsule 12/22/2019 12:00:00 A M EST eCW1 ([facility]) Sucralfate 1000 MG Oral Tablet 12/22/2019 12:00:00 AM EST eCW1 ([facility]) Omeprazole 40 MG Delayed Release Oral Capsule 12/22/2019 12:00:00 A M EST eCW1 ([facility]) Sucralfate 1000 MG Oral Tablet 12/22/2019 12:00:00 AM EST eCW1 ([facility]) Omeprazole 40 MG Delayed Release Oral Capsule 12/22/2019 12:00:00 A M EST eCW1 ([facility]) Sucralfate 1000 MG Oral Tablet 12/22/2019 12:00:00 AM EST eCW1 ([facility]) Acetaminophen 325 MG / Oxycodone Hydrochloride 10 MG O ral Tablet [Percocet] 11/24/2019 12:00:00 AM EDT eCW1 ([facility]) Diazepam 2 MG Oral Tablet 11/10/2019 12:00:00 AM EDT eCW1 ([facility]) Diazepam 2 MG Oral Tablet 11/10/2019 12:00:00 AM EDT eCW1 ([facility]) Diazepam 2 MG Oral Tablet 11/10/2019 12:00:00 AM EDT eCW1 ([facility]) Diazepam 2 MG Oral Tablet 11/10/2019 12:00:00 AM EDT eCW1 ([facility]) Diazepam 2 MG Oral Tablet 11/10/2019 12:00:00 AM EDT eCW1 ([facility]) Diazepam 2 MG Oral Tablet 11/10/2019 12:00:00 AM EDT eCW1 ([facility]) Diazepam 2 MG Oral Tablet 11/10/2019 12:00:00 AM EDT eCW1 ([facility]) Diazepam 2 MG Oral Tablet 11/10/2019 12:00:00 AM EDT eCW1 ([facility]) Diazepam 2 MG Oral Tablet 11/10/2019 12:00:00 AM EDT eCW1 ([facility]) Diazepam 2 MG Oral Tablet 11/10/2019 12:00:00 AM EDT eCW1 ([facility]) Diazepam 2 MG Oral Tablet 11/10/2019 12:00:00 AM EDT eCW1 ([facility]) Diazepam 2 MG Oral Tablet 11/10/2019 12:00:00 AM EDT eCW1 ([facility]) Diazepam 2 MG Oral Tablet 11/10/2019 12:00:00 AM EDT eCW1 ([facility]) Diazepam 2 MG Oral Tablet 11/10/2019 12:00:00 AM EDT eCW1 ([facility]) Diazepam 2 MG Oral Tablet 11/10/2019 12:00:00 AM EDT eCW1 ([facility]) Diazepam 2 MG Oral Tablet 11/10/2019 12:00:00 AM EDT eCW1 ([facility]) Diazepam 2 MG Oral Tablet 11/10/2019 12:00:00 AM EDT eCW1 ([facility]) Diazepam 2 MG Oral Tablet 11/10/2019 12:00:00 AM EDT eCW1 ([facility]) Diazepam 2 MG Oral Tablet 11/10/2019 12:00:00 AM EDT eCW1 ([facility]) Diazepam 2 MG Oral Tablet 11/10/2019 12:00:00 AM EDT eCW1 ([facility]) Diazepam 2 MG Oral Tablet 11/10/2019 12:00:00 AM EDT eCW1 ([facility]) Diazepam 2 MG Oral Tablet 11/10/2019 12:00:00 AM EDT eCW1 ([facility]) Diazepam 2 MG Oral Tablet 11/10/2019 12:00:00 AM EDT eCW1 ([facility]) Diazepam 2 MG Oral Tablet 11/10/2019 12:00:00 AM EDT eCW1 ([facility]) Diazepam 2 MG Oral Tablet 11/10/2019 12:00:00 AM EDT eCW1 ([facility]) Diazepam 2 MG Oral Tablet 11/10/2019 12:00:00 AM EDT eCW1 ([facility]) Diazepam 2 MG Oral Tablet 11/10/2019 12:00:00 AM EDT eCW1 ([facility]) Diazepam 2 MG Oral Tablet 11/10/2019 12:00:00 AM EDT eCW1 ([facility]) Diazepam 2 MG Oral Tablet 11/10/2019 12:00:00 AM EDT eCW1 ([facility]) Diazepam 2 MG Oral Tablet 11/10/2019 12:00:00 AM EDT eCW1 ([facility]) Diazepam 2 MG Oral Tablet 11/10/2019 12:00:00 AM EDT eCW1 ([facility]) Diazepam 2 MG Oral Tablet 11/10/2019 12:00:00 AM EDT eCW1 ([facility]) Diazepam 2 MG Oral Tablet 11/10/2019 12:00:00 AM EDT eCW1 ([facility]) Diazepam 2 MG Oral Tablet 11/10/2019 12:00:00 AM EDT eCW1 ([facility]) Diazepam 2 MG Oral Tablet 11/10/2019 12:00:00 AM EDT eCW1 ([facility]) Diazepam 2 MG Oral Tablet 11/10/2019 12:00:00 AM EDT eCW1 ([facility]) Diazepam 2 MG Oral Tablet 11/10/2019 12:00:00 AM EDT eCW1 ([facility]) Diazepam 2 MG Oral Tablet 11/10/2019 12:00:00 AM EDT eCW1 ([facility]) Diazepam 2 MG Oral Tablet 11/10/2019 12:00:00 AM EDT eCW1 ([facility]) Diazepam 2 MG Oral Tablet 11/10/2019 12:00:00 AM EDT eCW1 ([facility]) Diazepam 2 MG Oral Tablet 11/10/2019 12:00:00 AM EDT eCW1 ([facility]) Diazepam 2 MG Oral Tablet 11/10/2019 12:00:00 AM EDT eCW1 ([facility]) Diazepam 2 MG Oral Tablet 11/10/2019 12:00:00 AM EDT eCW1 ([facility]) Diazepam 2 MG Oral Tablet 11/10/2019 12:00:00 AM EDT eCW1 ([facility]) Diazepam 2 MG Oral Tablet 11/10/2019 12:00:00 AM EDT eCW1 ([facility]) Diazepam 2 MG Oral Tablet 11/10/2019 12:00:00 AM EDT eCW1 ([facility]) Diazepam 2 MG Oral Tablet 11/10/2019 12:00:00 AM EDT eCW1 ([facility]) Diazepam 2 MG Oral Tablet 11/10/2019 12:00:00 AM EDT eCW1 ([facility]) Diazepam 2 MG Oral Tablet 11/10/2019 12:00:00 AM EDT eCW1 ([facility]) 28 ACTUAT tiotropium 0.0025 MG/ACTUAT Metered Dose Inh aler [Spiriva] 09/04/2019 12:00:00 AM EDT eCW1 ([facility]) 28 ACTUAT tiotropium 0.0025 MG/ACTUAT Metered Dose Inh aler [Spiriva] 09/04/2019 12:00:00 AM EDT eCW1 ([facility]) 28 ACTUAT tiotropium 0.0025 MG/ACTUAT Metered Dose Inh aler [Spiriva] 09/04/2019 12:00:00 AM EDT eCW1 ([facility]) 28 ACTUAT tiotropium 0.0025 MG/ACTUAT Metered Dose Inh aler [Spiriva] 09/04/2019 12:00:00 AM EDT eCW1 ([facility]) 28 ACTUAT tiotropium 0.0025 MG/ACTUAT Metered Dose Inh aler [Spiriva] 09/04/2019 12:00:00 AM EDT eCW1 ([facility]) 28 ACTUAT tiotropium 0.0025 MG/ACTUAT Metered Dose Inh aler [Spiriva] 09/04/2019 12:00:00 AM EDT eCW1 ([facility]) 28 ACTUAT tiotropium 0.0025 MG/ACTUAT Metered Dose Inh aler [Spiriva] 09/04/2019 12:00:00 AM EDT eCW1 ([facility]) Morphine Sulfate 15 MG Extended Release Oral Tablet 09/03/19 20 12:00:00 AM EDT eCW1 ([facility]) 200 ACTUAT Albuterol 0.09 MG/ACTUAT Metered Dose Inhal er [Ventolin] 08/25/2019 12:00:00 AM EDT eCW1 ([facility]) tiotropium 0.018 MG/ACTUAT Inhalant Powder [Spiriva] 12:00:00 AM EDT eCW1 ([facility]) 200 ACTUAT Albuterol 0.09 MG/ACTUAT Metered Dose Inhal er [Ventolin] 08/25/2019 12:00:00 AM EDT eCW1 ([facility]) tiotropium 0.018 MG/ACTUAT Inhalant Powder [Spiriva] 12:00:00 AM EDT eCW1 ([facility]) 200 ACTUAT Albuterol 0.09 MG/ACTUAT Metered Dose Inhal er [Ventolin] 08/25/2019 12:00:00 AM EDT eCW1 ([facility]) tiotropium 0.018 MG/ACTUAT Inhalant Powder [Spiriva] 12:00:00 AM EDT eCW1 ([facility]) 200 ACTUAT Albuterol 0.09 MG/ACTUAT Metered Dose Inhal er [Ventolin] 08/25/2019 12:00:00 AM EDT eCW1 ([facility]) tiotropium 0.018 MG/ACTUAT Inhalant Powder [Spiriva] 12:00:00 AM EDT eCW1 ([facility]) 200 ACTUAT Albuterol 0.09 MG/ACTUAT Metered Dose Inhal er [Ventolin] 08/25/2019 12:00:00 AM EDT eCW1 ([facility]) tiotropium 0.018 MG/ACTUAT Inhalant Powder [Spiriva] 12:00:00 AM EDT eCW1 ([facility]) Chlorthalidone 25 MG Oral Tablet 08/04/2019 12:00:00 AM EDT eCW1 ([facility]) Propranolol Hydrochloride 10 MG Oral Tablet 08/04/2019 12:00:00 AM EDT eCW1 ([facility]) Morphine Sulfate 15 MG Extended Release Oral Tablet 07/28/19 12:00:00 AM EDT eCW1 ([facility]) Morphine Sulfate 15 MG Extended Release Oral Tablet 07/28/19 12:00:00 AM EDT eCW1 ([facility]) Acetaminophen 325 MG / Oxycodone Hydrochloride 10 MG O ral Tablet [Percocet] 07/13/2019 12:00:00 AM EDT eCW1 ([facility]) Morphine Sulfate 15 MG Extended Release Oral Tablet 07/07/19 12:00:00 AM EDT eCW1 ([facility]) Acetaminophen 325 MG / Oxycodone Hydrochloride 10 MG O ral Tablet [Percocet] 06/17/2019 12:00:00 AM EDT eCW1 ([facility]) Morphine Sulfate 15 MG Extended Release Oral Tablet 06/03/19 12:00:00 AM EDT eCW1 ([facility]) Acetaminophen 325 MG / Oxycodone Hydrochloride 10 MG O ral Tablet [Percocet] 05/18/2019 12:00:00 AM EDT eCW1 ([facility]) Morphine Sulfate 15 MG Extended Release Oral Tablet 05/04/19 12:00:00 AM EDT eCW1 ([facility]) Morphine Sulfate 15 MG Extended Release Oral Tablet 04/08/19 12:00:00 AM EST eCW1 ([facility]) Diazepam 5 MG Oral Tablet 04/01/2019 12:00:00 AM [facility] atorvastatin 40 MG Oral Tablet 03/26/2019 12:00:00 AM EST eCW1 ([facility]) atorvastatin 40 MG Oral Tablet 03/26/2019 12:00:00 AM EST eCW1 ([facility]) atorvastatin 40 MG Oral Tablet 03/26/2019 12:00:00 AM EST eCW1 ([facility]) Nystatin [id number] UNT/ML Topical Cream 03/26/2019 12:00:00 AM EST eCW1 ([facility]) Nystatin [id number] UNT/ML Topical Cream 03/26/2019 12:00:00 AM EST eCW1 ([facility]) Nystatin [id number] UNT/ML Topical Cream 03/26/2019 12:00:00 AM EST eCW1 ([facility]) atorvastatin 40 MG Oral Tablet 03/26/2019 12:00:00 AM EST eCW1 ([facility]) Losartan Potassium 50 MG Oral Tablet 03/26/2019 12:00:00 AM [facility] Ergocalciferol [id number] UNT Oral Capsule 03/26/2019 12:00:00 AM [facility] atorvastatin 40 MG Oral Tablet 03/26/2019 12:00:00 AM [facility] Nystatin [id number] UNT/ML Topical Cream 03/26/2019 12:00:00 AM EST eCW1 ([facility]) atorvastatin 40 MG Oral Tablet 03/26/2019 12:00:00 AM EST eCW1 ([facility]) Acetaminophen 325 MG / Oxycodone Hydrochloride 10 MG O ral Tablet [Percocet] 03/25/2019 12:00:00 AM EST eCW1 ([facility]) Morphine Sulfate 15 MG Extended Release Oral Tablet 03/10/19 12:00:00 AM EST eCW1 ([facility]) Diazepam 5 MG Oral Tablet 03/05/2019 12:00:00 AM [facility] Acetaminophen 325 MG / Oxycodone Hydrochloride 10 MG O ral Tablet [Percocet] 02/17/2019 12:00:00 AM EST eCW1 ([facility]) Morphine Sulfate 15 MG Extended Release Oral Tablet 02/12/19 12:00:00 AM EST eCW1 ([facility]) duloxetine 30 MG Delayed Release Oral Capsule 12/30/2018 12:00:00 A M [facility] Losartan Potassium 25 MG Oral Tablet 05/14/2018 12:00:00 AM [facility] Propranolol Hydrochloride 20 MG Oral Tablet 01/13/2018 12:00:00 AM [facility] Oxycodone Hydrochloride 5 MG Oral Tablet 06/25/2017 12:00:00 AM [facility]
[2020-04-09] MEDS ORDERED: MAALOX 30 ML SUSP *UDC PO PRN (15:00)
[2020-04-09] MEDS ORDERED: ACETAMINOPHEN TAB 650MG DOSE (2X325MG) PO PRN (15:00)
[2020-04-09] MEDS ORDERED: MOM 30ML SUSPENSION UDC PO PRN (15:00)
[2020-04-09] MEDS ORDERED: OLANZapine ORAL DISINTEGRATING TAB 5MG PO PRN (15:00)
[2020-04-09] MEDS ORDERED: traZODone 50 MG TAB PO PRN (15:00)
== END 2020-04-06 02:21 | disposition left against medical advice (07) ==
LOC: M ED 02:09
DX: Z53.21 Procedure and treatment not carried out due to patient leaving prior to being seen by health care provider (principal)

== ENCOUNTER 2020-04-09 05:25 | Inpatient (IN) | payer MEDICARE ==
[~2020-04-09] VITALS: Ht 175.3 cm; Wt 59.2 kg
--- OUTSIDE RECORDS SUMMARY | 2020-04-09 05:34 | CCD ---
Author Author [facility] Organization [facility] Address Unknown Phone Unavailable Care Team Providers Care Shop Hand Name Role Phone Jakub BOWIE MD Unavailable [...] JUDGE MD Unavailable Unavailable MANJARREZ, R PATRICK BUSINESS MANAGEMENT SPECIALIST Unavailable Unavailable MANJARERZ, R PATRICK BUSINESS MANAGEMENT SPECIALIST Unavailable Unavailable MANJARREZ, R PATRICK BUSINESS MANAGEMENT SPECIALIST Unavailable Unavailable MANJARREZ, R PATRICK BUSINESS MANAGEMENT SPECIALIST Unavailable Unavailable MANJARREZ, R PATRICK BUSINESS MANAGEMENT SPECIALIST Unavailable Unavailable MANJARREZ, R PATRICK BUSINESS MANAGEMENT SPECIALIST Unavailable Unavailable MANJARREZ, R PATRICK BUSINESS MANAGEMENT SPECIALIST Unavailable Unavailable MANJARREZ, R PATRICK BUSINESS MANAGEMENT SPECIALIST Unavailable Unavailable MANJARREZ, R PATRICK BUSINESS MANAGEMENT SPECIALIST Unavailable Unavailable MANJARREZ, R PATRICK BUSINESS MANAGEMENT SPECIALIST Unavailable Unavailable MANJARREZ, R PATRICK BUSINESS MANAGEMENT SPECIALIST Unavailable Unavailable MANJARREZ, R PATRICK BUSINESS MANAGEMENT SPECIALIST Unavailable Unavailable MANJARREZ, R PATRICK BUSINESS MANAGEMENT SPECIALIST Unavailable Unavailable MANJARREZ, R PATRICK BUSINESS MANAGEMENT SPECIALIST Unavailable Unavailable MANJARREZ, R PATRICK BUSINESS MANAGEMENT SPECIALIST Unavailable Unavailable MANJARREZ, R PATRICK BUSINESS MANAGEMENT SPECIALIST Unavailable Unavailable MANJARREZ, R PATRICK BUSINESS MANAGEMENT SPECIALIST Unavailable Unavailable MANJARREZ, R PATRICK BUSINESS MANAGEMENT SPECIALIST Unavailable Unavailable MANJARREZ, R PATRICK BUSINESS MANAGEMENT SPECIALIST Unavailable Unavailable MANJARREZ, R PATRICK BUSINESS MANAGEMENT SPECIALIST Unavailable Unavailable MANJARREZ, R PATRICK BUSINESS MANAGEMENT SPECIALIST Unavailable Unavailable MANJARREZ, R PATRICK BUSINESS MANAGEMENT SPECIALIST Unavailable Unavailable MANJARREZ, R PATRICK BUSINESS MANAGEMENT SPECIALIST Unavailable Unavailable MANJARREZ, R PATRICK BUSINESS MANAGEMENT SPECIALIST Unavailable Unavailable MANJARREZ, R PATRICK BUSINESS MANAGEMENT SPECIALIST Unavailable Unavailable MANJARREZ, R PATRICK BUSINESS MANAGEMENT SPECIALIST Unavailable Unavailable MANJARREZ, R PATRICK BUSINESS MANAGEMENT SPECIALIST Unavailable Unavailable MANJARREZ, R PATRICK BUSINESS MANAGEMENT SPECIALIST Unavailable Unavailable MANJARREZ, R PATRICK BUSINESS MANAGEMENT SPECIALIST Unavailable Unavailable MANJARREZ, R PATRICK BUSINESS MANAGEMENT SPECIALIST Unavailable Unavailable MANJARREZ, R PATRICK BUSINESS MANAGEMENT SPECIALIST Unavailable Unavailable MANJARREZ, R PATRICK BUSINESS MANAGEMENT SPECIALIST Unavailable Unavailable MANJARREZ, R PATRICK BUSINESS MANAGEMENT SPECIALIST Unavailable Unavailable MANJARREZ, R PATRICK BUSINESS MANAGEMENT SPECIALIST Unavailable Unavailable MANJARREZ, R PATRICK BUSINESS MANAGEMENT SPECIALIST Unavailable Unavailable MANJARREZ, R PATRICK BUSINESS MANAGEMENT SPECIALIST Unavailable Unavailable MANJARREZ, R PATRICK BUSINESS MANAGEMENT SPECIALIST Unavailable Unavailable MANJARREZ, R PATRICK BUSINESS MANAGEMENT SPECIALIST Unavailable Unavailable MANJARREZ, R PATRICK BUSINESS MANAGEMENT SPECIALIST Unavailable Unavailable MANJARREZ, R PATRICK BUSINESS MANAGEMENT SPECIALIST Unavailable Unavailable MANJARREZ, R PATRICK BUSINESS MANAGEMENT SPECIALIST Unavailable Unavailable Poe, M Brigid BUSINESS MANAGEMENT SPECIALIST Unavailable Unavailable Poe, M Brigid BUSINESS MANAGEMENT SPECIALIST Unavailable Unavailable Poe, M Brigid BUSINESS MANAGEMENT SPECIALIST Unavailable Unavailable Poe, M Brigid BUSINESS MANAGEMENT SPECIALIST Unavailable Unavailable Poe, M Brigid BUSINESS MANAGEMENT SPECIALIST Unavailable Unavailable Poe, M Brigid BUSINESS MANAGEMENT SPECIALIST Unavailable Unavailable Poe, M Brigid BUSINESS MANAGEMENT SPECIALIST Unavailable Unavailable Poe, M Brigid BUSINESS MANAGEMENT SPECIALIST Unavailable Unavailable Poe, M Brigid BUSINESS MANAGEMENT SPECIALIST Unavailable Unavailable Poe, M Brigid BUSINESS MANAGEMENT SPECIALIST Unavailable Unavailable Poe, M Brigid BUSINESS MANAGEMENT SPECIALIST Unavailable Unavailable Poe, M Brigid BUSINESS MANAGEMENT SPECIALIST Unavailable Unavailable Poe, M Brigid BUSINESS MANAGEMENT SPECIALIST Unavailable Unavailable Poe, M Brigid BUSINESS MANAGEMENT SPECIALIST Unavailable Unavailable Poe, M Brigid BUSINESS MANAGEMENT SPECIALIST Unavailable Unavailable Poe, M Brigid BUSINESS MANAGEMENT SPECIALIST Unavailable Unavailable Poe, M Brigid BUSINESS MANAGEMENT SPECIALIST Unavailable Unavailable Poe, M Brigid BUSINESS MANAGEMENT SPECIALIST Unavailable Unavailable Poe, M Brigid BUSINESS MANAGEMENT SPECIALIST Unavailable Unavailable Poe, M Brigid BUSINESS MANAGEMENT SPECIALIST Unavailable Unavailable Poe, M Brigid BUSINESS MANAGEMENT SPECIALIST Unavailable Unavailable Poe, M Brigid BUSINESS MANAGEMENT SPECIALIST Unavailable Unavailable Poe, M Brigid BUSINESS MANAGEMENT SPECIALIST Unavailable Unavailable Poe, M Brigid BUSINESS MANAGEMENT SPECIALIST Unavailable Unavailable Poe, M Brigid BUSINESS MANAGEMENT SPECIALIST Unavailable Unavailable Poe, M Brigid BUSINESS MANAGEMENT SPECIALIST Unavailable Unavailable Poe, M Brigid BUSINESS MANAGEMENT SPECIALIST Unavailable Unavailable Poe, M Brigid BUSINESS MANAGEMENT SPECIALIST Unavailable Unavailable Poe, M Brigid BUSINESS MANAGEMENT SPECIALIST Unavailable Unavailable Poe, M Brigid BUSINESS MANAGEMENT SPECIALIST Unavailable Unavailable Brooklyn Huber MD Unavailable Unavailable [...] Unavailable Ali, Brooklyn MD Unavailable Unavailable Ali, Brokolyn MD Unavailable Unavailable Ali, Brooklyn MD Unavailable [...] is protected by Article 27-F of the [facility] Public Health law. If you continue you may have access to information: Regarding HIV / AIDS; Provided by facilities licensed or operated by the [facility] Office of Mental Health; or Provided by the [facility] Office for People With Developmental Disabilities. If such information is present, then the following [facility] mandated warning applies: This information has [...] law may result in a fine or long-term sentence or both. A general authorization for the release of medical or other information is NOT sufficient authorization for further disc losure. Allergies and Adverse Reactions Type Description Substance Reaction Status Data Source(s ) Drug allergy Dexamethasone Dexamethasone erythema Active eCW1 ( [facility]) Drug allergy Penicillin (For Allergies Use Only) Drug allergy told as a child to not take Active eCW1 ([facility]) Family History Family Member Name Family Member Gender Family Member Status Date o f Status Description Data Source(s) Unknown Male Problem MEDENT ([facility] ) Unknown Unknown Problem MEDENT ([facility], ) Unknown Unknown Problem MEDENT ([facility], ) Unknown Unknown Problem MEDENT ([facility], ) Unknown Unknown Problem MEDENT ([facility]) Encounters Encounter Providers Location Date Indications Data Source(s ) Unknown [address] [facility] [address] 03/16/2020 12:00:00 AM EST eCW1 ([facility]) Outpatient Attender: NU BOWIE MD 03/10/2020 12:00:00 A M [facility] Unknown [address] [facility] [place] [address] 03/04/2020 12:00:00 AM EST eCW1 ([facility]) Unknown [address] [facility] [address] 03/02/2020 12:00:00 AM EST eCW1 ([facility]) Unknown [address] [facility] [place] [address] 02/23/2020 12:00:00 AM EST eCW1 ([facility]) Unknown [address] [facility] [place] [address] 02/23/2020 12:00:00 AM EST eCW1 ([facility]) Unknown [address] [facility] [address] 02/23/2020 12:00:00 AM EST eCW1 ([facility]) Unknown [address] [facility] [address] 02/08/2020 12:00:00 AM EST eCW1 ([facility]) TeleMedicine Phone E/M by Phys 21-30 Min [address] [place] [address] 01/28/2020 12:00:00 AM EST eCW1 ([facility]) Outpatient Attender: NU BOWIE MD 01/28/2020 12:00:00 A M [facility] Unknown [address] [facility] [address] 01/27/2020 12:00:00 AM EST eCW1 ([facility]) Unknown [address] [facility] [address] 01/27/2020 12:00:00 AM EST eCW1 ([facility]) Unknown [address] [facility] [address] 01/27/2020 12:00:00 AM EST eCW1 ([facility]) Unknown [address] [facility] Y [address] 01/26/2020 12:00:00 AM EST [facility] [address] [facility] [address] 01/25/2020 12:00:00 AM EST eCW1 ([facility]) Unknown [address] [facility] [address] 01/22/2020 12:00:00 AM EST eCW1 ([facility]) Unknown [address] [facility] Y [address] 01/20/2020 12:00:00 AM EST eCW1 ([facility]) Unknown [address] [facility] Y [address] 01/20/2020 12:00:00 AM EST eCW1 ([facility]) ([facility]) [facility] Scheduled Visit [address] [place] [address] 01/19/2020 12:00:00 AM EST eCW1 ([facility]) Unknown [address] [facility] Y [address] 01/19/2020 12:00:00 AM EST eCW1 ([facility]) Unknown [address] [facility] Y [address] 01/18/2020 12:00:00 AM EST eCW1 ([facility]) Unknown [address] [facility] Y [address] 01/18/2020 12:00:00 AM EST eCW1 ([facility]) Outpatient [address] [facility] Y [address] 01/15/2020 12:00:00 AM EST eCW1 ([facility]) Unknown [address] [facility] Y [address] 01/15/2020 12:00:00 AM EST eCW1 ([facility]) Unknown [address] [facility] [place] [address] 01/14/2020 12:00:00 AM EST eCW1 ([facility]) Unknown [address] [facility] Y [address] 01/13/2020 12:00:00 AM EST eCW1 ([facility]) Unknown [address] [facility] [place] [address] 01/13/2020 12:00:00 AM EST eCW1 ([facility]) Unknown [address] [facility] [place] [address] 01/13/2020 12:00:00 AM EST [facility]CW1 [facility] Outpatient Attender: NU BOWIE MD 01/13/2020 12:00:00 A [facility] Unknown [address] [facility] [address] 01/12/2020 12:00:00 AM EST eCW1 [facility] Unknown [address] [facility] [place] [address] 01/12/2020 12:00:00 AM EST eCW1 ([facility]) Unknown [address] [facility] [address] 01/12/2020 12:00:00 AM EST eCW1 ([facility]) Unknown [address] [facility] [address] 01/11/2020 12:00:00 AM EST eCW1 ([facility]) Unknown [address] [facility] [address] 01/10/2020 12:00:00 AM EST eCW1 ([facility]) Unknown [address] [facility] [address] 01/05/2020 12:00:00 AM EST eCW1 ([facility]) Unknown [address] [facility] [address] 01/04/2020 12:00:00 AM EST eCW1 ([facility]) Unknown [address] [facility] [address] 01/02/2020 12:00:00 AM EST eCW1 ([facility]) Unknown [address] [facility] [address] 01/01/2020 12:00:00 AM EST eCW1 ([facility]) Unknown [address] [facility] [address] 12/31/2019 12:00:00 AM EST eCW1 ([facility]) Unknown [address] [facility] [address] 12/29/2019 12:00:00 AM EST eCW1 ([facility]) Unknown [address] [facility] [address] 12/28/2019 12:00:00 AM EST eCW1 ([facility]) Unknown [address] [facility] [address] 12/25/2019 12:00:00 AM EST eCW1 ([facility]) Outpatient [address] [facility] [address] 12/24/2019 12:00:00 AM EST eCW1 ([facility]) Unknown [address] [facility] [address] 12/24/2019 12:00:00 AM EST eCW1 ([facility]) Unknown [address] [facility] [address] 12/24/2019 12:00:00 AM EST eCW1 ([facility]) Unknown [address] [facility] [address] 12/24/2019 12:00:00 AM EST eCW1 ([facility]) Unknown [address] [facility] [place] [address] 12/24/2019 12:00:00 AM EST eCW1 ([facility]) Unknown [address] [facility] [address] 12/23/2019 12:00:00 AM EST eCW1 ([facility]) Unknown [address] [facility] [address] 12/23/2019 12:00:00 AM EST eCW1 ([facility]) Unknown [address] [facility] [address] 12/23/2019 12:00:00 AM EST eCW1 ([facility]) Unknown [address] [facility] [address] 12/22/2019 12:00:00 AM EST eCW1 ([facility]) Unknown [address] [facility] [address] 12/22/2019 12:00:00 AM EST eCW1 ([facility]) Outpatient [address] [facility] [place] [address] 12/22/2019 12:00:00 AM EST eCW1 ([facility]) Unknown [address] [facility] [address] 12/22/2019 12:00:00 AM EST eCW1 ([facility]) Unknown [address] [facility] [address] 12/21/2019 12:00:00 AM EST eCW1 ([facility]) Unknown [address] [facility] [address] 12/20/2019 12:00:00 AM EST eCW1 ([facility]) Unknown [address] [facility] [address] 12/18/2019 12:00:00 AM EST eCW1 ([facility]) Unknown [address] [facility] [address] 12/18/2019 12:00:00 AM EST eCW1 ([facility]) Unknown [address] [facility] [address] 12/18/2019 12:00:00 AM EST eCW1 ([facility]) Unknown [address] [facility] [address] 12/18/2019 12:00:00 AM EST eCW1 ([facility]) Outpatient [address] [facility] [address] 12/17/2019 12:00:00 AM EST eCW1 ([facility]) (PN Proc 45) Pain Procedure 45 [address] [place] [address] 12/11/2019 12:00:00 AM EDT eCW1 ([facility]) Unknown [address] [facility] [address] 12/10/2019 12:00:00 AM EDT eCW1 ([facility]) Unknown [address] [facility] Y [address] 12/10/2019 12:00:00 AM EDT eCW1 ([facility]) Unknown [address] [facility] Y [address] 12/09/2019 12:00:00 AM EDT eCW1 ([facility]) Unknown [address] [facility] [address] 12/07/2019 12:00:00 AM EDT eCW1 ([facility]) Unknown [address] [facility], [place] [address] 12/01/2019 12:00:00 AM EDT eCW1 ([facility]) Unknown [address] [facility], [place] [address] 11/30/2019 12:00:00 AM EDT eCW1 ([facility]) Outpatient [address] [facility] [place] [address] 11/30/2019 12:00:00 AM EDT eCW1 ([facility]) Unknown [address] [facility] Y [address] 11/29/2019 12:00:00 AM EDT eCW1 ([facility]) Outpatient [address] [facility] Y [address] 11/24/2019 12:00:00 AM EDT eCW1 ([facility]) Unknown [address] [facility] Y [address] 11/17/2019 12:00:00 AM EDT eCW1 ([facility]) (PN Proc 45) Pain Procedure 45 [address] [place] [address] 11/12/2019 12:00:00 AM EDT eCW1 ([facility]) Unknown [address] [facility], [place] [address] 11/10/2019 12:00:00 AM EDT eCW1 ([facility]) Unknown [address] [facility], [place] [address] 11/03/2019 12:00:00 AM EDT eCW1 ([facility]) Unknown [address] [facility] Y [address] 11/03/2019 12:00:00 AM EDT eCW1 ([facility]) Unknown [address] [facility] Y [address] 11/03/2019 12:00:00 AM EDT eCW1 ([facility]) Unknown [address] [facility] Y [address] 11/03/2019 12:00:00 AM EDT eCW1 ([facility]) Unknown [address] [facility], [place] [address] 11/03/2019 12:00:00 AM EDT eCW1 ([facility]) Unknown [address] [facility], [place] [address] 11/03/2019 12:00:00 AM EDT eCW1 ([facility]) [facility] [address] [facility] Y [address] 10/09/2019 12:00:00 AM EDT eCW1 ([facility]) Outpatient Attender: Brooklyn Huber MD Main office - [place] 09/28/2019 03:10:00 PM EDT MEDENT ([facility] ) Outpatient Attender: Brooklyn Huber MD Main office - [place] 09/22/2019 11:30:00 AM EDT MEDENT ([facility] ) [facility] [address] [place] [address] 09/14/2019 12:00:00 AM EDT eCW1 ([facility]) Outpatient [address] [facility], [place] [address] 09/04/2019 12:00:00 AM EDT eCW1 ([facility]) Unknown [address] [facility] [address] 09/03/2019 12:00:00 AM EDT eCW1 ([facility]) Unknown [address] [facility] [address] 09/01/2019 12:00:00 AM EDT eCW1 ([facility]) Outpatient [address] [facility] [place] [address] 08/31/2019 12:00:00 AM EDT eCW1 ([facility]) Unknown [address] [facility] Y [address] 08/28/2019 12:00:00 AM EDT eCW1 ([facility]) Unknown [address] [facility] [address] 08/27/2019 12:00:00 AM EDT [facility]CW[facility] Unknown [address] [facility] [address] 08/27/2019 12:00:00 AM EDT eCW1 ([facility]) Unknown [address] [facility] [place] [address] 08/26/2019 12:00:00 AM EDT [facility]CW1 [facility] Outpatient [address] [facility] [place] [address] 08/25/2019 12:00:00 AM EDT eCW1 [facility]) Outpatient Attender: PATRICK MANJARREZ NP 08/25/2019 12:00:0 0 AM [facility] Unknown [address] [facility] [address] 08/19/2019 12:00:00 AM EDT eCW1 ([facility]) Outpatient Referrer: Brigid Poe NP 08/13/2019 05:20:00 AM EDT [facility], Est Pt., Level 3 PC [address] [place] [address] 08/13/2019 12:00:00 AM EDT eCW1 ([facility]) Outpatient [address] [facility] [address] 08/04/2019 12:00:00 AM EDT eCW1 ([facility]) Unknown [address] [facility] [address] 08/03/2019 12:00:00 AM EDT eCW1 ([facility]) [facility] [address] [place] [address] 07/30/2019 12:00:00 AM EDT [facility]CW1 ([facility]) Outpatient Referrer: Brigid Poe NP 07/29/2019 05:54:00 AM EDT [facility] [address] [place] [address] 07/29/2019 12:00:00 AM EDT eCW1 ([facility]) Unknown [address] [facility] [address] 07/28/2019 12:00:00 AM EDT eCW1 ([facility]) Unknown [address] [facility], [place] [address] 07/24/2019 12:00:00 AM EDT eCW1 ([facility]) Unknown [address] [facility] [address] 07/22/2019 12:00:00 AM EDT eCW1 ([facility]) Outpatient [address] [facility] [place] [address] 07/14/2019 12:00:00 AM EDT eCW1 ([facility]) TeleMedicine Phone E/M by Zeina 11-[address] [place] [address] 07/13/2019 12:00:00 AM EDT eCW1 ([facility]) [facility] [address] [place] [address] 07/13/2019 12:00:00 AM EDT eCW1 ([facility]) [facility] [address] [place] [address] 07/07/2019 12:00:00 AM EDT eCW1 ([facility]) [facility] [address] [facility] [place] [address] 06/25/2019 12:00:00 AM EDT eCW1 ([facility]) [facility] [address] [place] [address] 06/24/2019 12:00:00 AM EDT eCW1 ([facility]) [facility] [address] [place] [address] 06/16/2019 12:00:00 AM EDT eCW1 ([facility]) [facility] [address] [place] [address] 06/12/2019 12:00:00 AM EDT eCW1 ([facility]) [facility] [address] [place] [address] 06/03/2019 12:00:00 AM EDT eCW1 ([facility]) [facility] [address] [place] [phone] 06/03/2019 12:00:00 AM EDT eCW1 ([facility]) Outpatient Attender: NU BOWIE MD 06/03/2019 12:00:00 A M [facility] [address] [place] [address] 05/28/2019 12:00:00 AM EDT eCW1 ([facility]) [facility] [address] [place] [address] 05/27/2019 12:00:00 AM EDT eCW1 ([facility]) [facility] Center [address] [place] [address] 05/27/2019 12:00:00 AM EDT eCW1 ([facility]) [address] [address] 05/22/2019 12:00:00 AM EDT eCW1 ([facility]) [facility] [address] [place] [address] 05/21/2019 12:00:00 AM EDT eCW1 ([facility]) [address] [address] 05/20/2019 12:00:00 AM EDT eCW1 ([facility]) [facility] [address] [place] [address] 05/18/2019 12:00:00 AM EDT eCW1 ([facility]) [facility] Dermatology [address] [place] [phone] 05/15/2019 12:00:00 AM EDT eCW1 ([facility]) [facility] [address] [place] [phone] 05/12/2019 12:00:00 AM EDT eCW1 ([facility]) [facility] [address] [place] [phone] 05/12/2019 12:00:00 AM EDT eCW1 ([facility]) [facility] [address] [facility] [phone] 05/08/2019 12:00:00 AM EDT eCW1 ([facility]) [facility] [address] [place] [phone] 05/05/2019 12:00:00 AM EDT eCW1 ([facility]) [facility] [address] [place] [phone] 05/01/2019 12:00:00 AM EDT eCW1 ([facility]) [facility] [address] [place] [phone] 04/30/2019 12:00:00 AM EDT eCW1 ([facility]) [facility] [address] [place] [phone] 04/30/2019 12:00:00 AM EDT eCW1 ([facility]) [facility] [address] [place] [phone] 04/21/2019 12:00:00 AM EDT eCW1 ([facility]) [facility] [address] [place] [phone] 04/16/2019 12:00:00 AM EST eCW1 ([facility]) [facility] [address] [place] [phone] 04/15/2019 12:00:00 AM EST eCW1 ([facility]) [facility] [address] [place] [phone] 04/14/2019 12:00:00 AM EST eCW1 ([facility]) [facility] [address] [place] [phone] 04/09/2019 12:00:00 AM EST eCW1 ([facility]) [facility] [address] [place] [phone] 04/08/2019 12:00:00 AM EST [facility]) Outpatient Referrer: Brigid Poe NP 04/07/2019 08:15:00 AM EST [facility] [address] [place] [phone] 04/07/2019 12:00:00 AM EST [facility]CW1 [facility] [address] [phone] 04/06/2019 12:00:00 AM EST eCW1 ([facility]) [facility] [address] [place] [phone] 04/02/2019 12:00:00 AM EST [facility]CW1 [facility]) Outpatient Attender: NU BOWIE MD [id number] 2019 12:00:00 AM EST - 04/20/2019 07:15:28 AM EDT Lesion of ulnar nerve, right upper limb [facility] Lesion of ulnar nerve, right upper limb [facility] [address] [place] [phone] 03/31/2019 12:00:00 AM EST eCW1 ([facility]) [facility] [address] [place] [phone] 03/27/2019 12:00:00 AM EST eCW1 [facility]) [facility] [place] [address] [place] [phone] 03/26/2019 12:00:00 AM EST [facility]CW1 ([facility]) [facility] [address] [place] [phone] 03/26/2019 12:00:00 AM EST [facility]CW1 ([facility]) [facility] [address] [place] [phone] 03/25/2019 12:00:00 AM EST [facility]CW1 [facility] [address] [place] [phone] 03/25/2019 12:00:00 AM EST eCW1 ([facility]) [facility] [address] [place] [phone] 03/23/2019 12:00:00 AM EST eCW1 ([facility]) [facility] [address] [place] [phone] 03/10/2019 12:00:00 AM EST eCW1 ([facility]) Outpatient Attender: NU BOWIE MD 03/05/2019 12:00:00 A [facility] [address] [place] [phone] 03/02/2019 12:00:00 AM EST eCW1 ([facility]) [facility] [address] [place] [phone] 02/27/2019 12:00:00 AM EST eCW1 ([facility]) [facility] [address] [place] [phone] 02/24/2019 12:00:00 AM EST eCW1 ([facility]) [facility] [address] [place] [phone] 02/23/2019 12:00:00 AM EST eCW1 ([facility]) [facility] [address] [place] [phone] 02/16/2019 12:00:00 AM EST eCW1 ([facility]) [facility] [address] [place] [phone] 02/13/2019 12:00:00 AM EST eCW1 ([facility]) [facility] [address] [place] [phone] 02/13/2019 12:00:00 AM EST eCW1 ([facility]) [facility] [address] [place] [phone] 02/12/2019 12:00:00 AM EST eCW1 ([facility]) Immunizations Vaccine Date Status Description Data Source(s) influenza, recombinant, quadrIvalent,injectable, prese rvative free 01/15/2020 10:57:00 AM EST completed eCW1 ([facility]) influenza, recombinant, quadrIvalent,injectable, prese rvative free 01/15/2020 10:57:00 AM EST completed eCW1 ([facility]) influenza, recombinant, quadrIvalent,injectable, prese rvative free 01/15/2020 10:57:00 AM EST completed eCW1 ([facility]) influenza, recombinant, quadrIvalent,injectable, prese rvative free 01/15/2020 10:57:00 AM EST completed eCW1 ([facility]) influenza, recombinant, quadrIvalent,injectable, prese rvative free 01/15/2020 10:57:00 AM EST completed eCW1 ([facility]) influenza, recombinant, quadrIvalent,injectable, prese rvative free 01/15/2020 10:57:00 AM EST completed eCW1 ([facility]) influenza, recombinant, quadrIvalent,injectable, prese rvative free 01/15/2020 10:57:00 AM EST completed eCW1 ([facility]) influenza, recombinant, quadrIvalent,injectable, prese rvative free 01/15/2020 10:57:00 AM EST completed eCW1 ([facility]) influenza, recombinant, quadrIvalent,injectable, prese rvative free 01/15/2020 10:57:00 AM EST completed eCW1 ([facility]) influenza, recombinant, quadrIvalent,injectable, prese rvative free 01/15/2020 10:57:00 AM EST completed eCW1 ([facility]) influenza, recombinant, quadrIvalent,injectable, prese rvative free 01/15/2020 10:57:00 AM EST completed eCW1 ([facility]) influenza, recombinant, quadrIvalent,injectable, prese rvative free 01/15/2020 10:57:00 AM EST completed eCW1 ([facility]) influenza, recombinant, quadrIvalent,injectable, prese rvative free 01/15/2020 10:57:00 AM EST completed eCW1 ([facility]) influenza, recombinant, quadrIvalent,injectable, prese rvative free 01/15/2020 10:57:00 AM EST completed eCW1 ([facility]) influenza, recombinant, quadrIvalent,injectable, prese rvative free 01/15/2020 10:57:00 AM EST completed eCW1 ([facility]) influenza, recombinant, quadrIvalent,injectable, prese rvative free 01/15/2020 10:57:00 AM EST completed eCW1 ([facility]) influenza, recombinant, quadrIvalent,injectable, prese rvative free 01/15/2020 10:57:00 AM EST completed eCW1 ([facility]) influenza, recombinant, quadrIvalent,injectable, prese rvative free 01/15/2020 10:57:00 AM EST completed eCW1 ([facility]) influenza, recombinant, quadrIvalent,injectable, prese rvative free 01/15/2020 10:57:00 AM EST completed eCW1 ([facility]) influenza, recombinant, quadrIvalent,injectable, prese rvative free 01/15/2020 10:57:00 AM EST completed eCW1 ([facility]) influenza, recombinant, quadrIvalent,injectable, prese rvative free 01/15/2020 10:57:00 AM EST completed eCW1 ([facility]) influenza, recombinant, quadrIvalent,injectable, prese rvative free 01/15/2020 10:57:00 AM EST completed eCW1 ([facility]) influenza, recombinant, quadrIvalent,injectable, prese rvative free 01/15/2020 10:57:00 AM EST completed eCW1 ([facility]) influenza, recombinant, quadrIvalent,injectable, prese rvative free 01/15/2020 10:57:00 AM EST completed eCW1 ([facility]) influenza, recombinant, quadrIvalent,injectable, prese rvative free 01/15/2020 10:57:00 AM EST completed eCW1 ([facility]) influenza, recombinant, quadrIvalent,injectable, prese rvative free 01/15/2020 10:57:00 AM EST completed eCW1 ([facility]) Medications Medication Brand Name Start Date [...] MOUTH AT BEDTIME FOR PSYCHOSIS SOLD: 03/08/2020 [facility] olanzapine 7.5 MG Oral Tablet OLANZAPINE 03/08/2020 12:00:00 AM EST ta blet 7 TAKE ONE TABLET BY MOUTH AT BEDTIME FOR PSYCHOSIS TAKE ONE TABLET BY MOUTH AT BEDTIME FOR PSYCHOSIS SOLD: 03/15/2020 [facility] 2 mg 03/07/2020 12:00:00 AM [...] MOUTH AT BEDTIME FOR PSYCHOSIS SOLD: 03/07/2020 [facility] olanzapine 10 MG Oral Tablet OLANZAPINE 03/07/2020 12:00:00 AM EST tab let 7 TAKE ONE TABLET BY MOUTH AT BEDTIME FOR PSYCHOSIS TAKE ONE TABLET BY MOUTH AT BEDTIME FOR PSYCHOSIS SOLD: 03/13/2020 [facility] Amitriptyline Hydrochloride 25 MG Oral Tablet AMITRIPTYLINE HCL 03/07/2020 12:00:00 AM EST tablet 7 TAKE ONE TABLET BY MOUTH AT BEDTIME FOR MOOD/SLEEP TAKE ONE TABLET BY MOUTH AT BEDTIME FOR MOOD/SLEEP SOLD: 03/07/2020 [facility] buspirone hydrochloride 10 MG Oral Tablet BUSPIRONE HCL 03/07/2020 12:00:00 AM EST tablet 14 TAKE ONE TABLET BY MOUTH TWI CE A DAY FOR ANXIETY TAKE ONE TABLET BY MOUTH TWICE A DAY FOR ANXIETY SOLD: 04/04/2020 [facility] buspirone hydrochloride 10 MG Oral Tablet BUSPIRONE HCL 03/07/2020 12:00:00 AM EST tablet 14 TAKE ONE TABLET BY MOUTH TWI CE A DAY FOR ANXIETY TAKE ONE TABLET BY MOUTH TWICE A DAY FOR ANXIETY SOLD: 03/30/2020 [facility] buspirone hydrochloride 10 MG Oral Tablet BUSPIRONE HCL 03/07/2020 12:00:00 AM EST tablet 14 TAKE ONE TABLET BY MOUTH TWI CE A DAY FOR ANXIETY TAKE ONE TABLET BY MOUTH TWICE A DAY FOR ANXIETY SOLD: 03/18/2020 [facility] buspirone hydrochloride 10 MG Oral Tablet BUSPIRONE HCL 03/07/2020 12:00:00 AM EST tablet 14 TAKE ONE TABLET BY MOUTH TWI CE A DAY FOR ANXIETY TAKE ONE TABLET BY MOUTH TWICE A DAY FOR ANXIETY SOLD: 03/13/2020 [facility] buspirone hydrochloride 10 MG Oral Tablet BUSPIRONE HCL 03/07/2020 12:00:00 AM EST tablet 14 TAKE ONE TABLET BY MOUTH TWI CE A DAY FOR ANXIETY TAKE ONE TABLET BY MOUTH TWICE A DAY FOR ANXIETY SOLD: 03/07/2020 [facility] 5 mg 03/07/2020 12:00:00 AM EST [...] 30 DAYS SOLD: 02/24/2020 [facility] Amitriptyline Hydrochloride 25 MG Oral Tablet AMITRIPTYLINE HCL 02/24/2020 12:00:00 AM EST tablet 150 TAKE 5 TABLETS BY MOUTH O NCE A DAY TAKE 5 TABLETS BY MOUTH ONCE A DAY SOLD: 03/25/2020 [facility] 15 mg 02/24/2020 12:00:00 AM EST tablet extended release 90 TAKE ONE TABLET BY MOUTH EVERY 8 HOURS MAXIMUM DAILY DOSE = 3 TAKE ONE TABLET BY MOUTH EVERY 8 HOURS MAXIMUM DAILY DOSE = 3 SOLD: 02/24/2020 [facility] Amitriptyline Hydrochloride 25 MG Oral [...] {tablet_as_needed} active Percocet 10-3 25 MG eCW1 ([facility]) Acetaminophen 325 MG / Oxycodone Hydroch loride 10 MG Oral Tablet [Percocet] Percocet 10-325 MG Percocet 10-325 MG 02/23/2020 12:00:00 AM EST 1.0 {tablet_as_needed} active Percocet 10-3 25 MG eCW1 ([facility]) Morphine Sulfate 15 MG Oral Tablet Morphine Sulfate 15 MG 12:00:00 AM EST 1.0 {tablet_as_needed} active M orphine Sulfate 15 MG eCW1 ([facility]) Acetaminophen 325 MG / Oxycodone Hydroch loride 10 MG Oral Tablet [Percocet] Percocet 10-325 MG Percocet 10-325 MG 02/23/2020 12:00:00 AM EST 1.0 {tablet_as_needed} active Percocet 10-3 25 MG eCW1 ([facility]) Morphine Sulfate 15 MG Oral Tablet Morphine Sulfate 15 MG 12:00:00 AM EST 1.0 {tablet_as_needed} active M orphine Sulfate 15 MG eCW1 ([facility]) Acetaminophen 325 MG / Oxycodone Hydroch loride 10 MG Oral Tablet [Percocet] Percocet 10-325 MG Percocet 10-325 MG 02/23/2020 12:00:00 AM EST 1.0 {tablet_as_needed} active Percocet 10-3 25 MG eCW1 ([facility]) Morphine Sulfate 15 MG Oral Tablet Morphine Sulfate 15 MG 12:00:00 AM EST 1.0 {tablet_as_needed} active M orphine Sulfate 15 MG eCW1 ([facility]) Morphine Sulfate 15 MG Oral Tablet Morphine Sulfate 15 MG 12:00:00 AM EST 1.0 {tablet_as_needed} active M orphine Sulfate 15 MG eCW1 ([facility]) Morphine Sulfate 15 MG Oral Tablet Morphine Sulfate 15 MG 12:00:00 AM EST 1.0 {tablet_as_needed} active M orphine Sulfate 15 MG eCW1 ([facility]) Acetaminophen 325 MG / Oxycodone Hydroch loride 10 MG Oral Tablet [Percocet] Percocet 10-325 MG Percocet 10-325 MG 02/23/2020 12:00:00 AM EST 1.0 {tablet_as_needed} active Percocet 10-3 25 MG eCW1 ([facility]) Acetaminophen 325 MG / Oxycodone Hydroch loride 10 MG Oral Tablet [Percocet] Percocet 10-325 MG Percocet 10-325 MG 02/23/2020 12:00:00 AM EST 1.0 {tablet_as_needed} active Percocet 10-3 25 MG eCW1 ([facility]) Morphine Sulfate 15 MG Oral Tablet Morphine Sulfate 15 MG 12:00:00 AM EST 1.0 {tablet_as_needed} active M orphine Sulfate 15 MG eCW1 ([facility]) Budesonide 180 MCG/ACT UNK 02/16/2020 12:00:00 AM EST 1.0 {puff } active Budesonide 180 MCG/ACT eCW1 ([facility]) Budesonide 180 MCG/ACT UNK 02/16/2020 12:00:00 AM EST 1.0 {puff } active Budesonide 180 MCG/ACT eCW1 ([facility]) Budesonide 180 MCG/ACT UNK 02/16/2020 12:00:00 AM EST 1.0 {puff } active Budesonide 180 MCG/ACT eCW1 ([facility]) Budesonide 180 MCG/ACT UNK 02/16/2020 12:00:00 AM EST 1.0 {puff } active Budesonide 180 MCG/ACT eCW1 ([facility]) Budesonide 180 MCG/ACT UNK 02/16/2020 12:00:00 AM EST 1.0 {puff } active Budesonide 180 MCG/ACT eCW1 ([facility]) Budesonide 180 MCG/ACT UNK 02/16/2020 12:00:00 AM EST 1.0 {puff } active Budesonide 180 MCG/ACT eCW1 ([facility]) 2 mg 02/09/2020 12:00:00 AM EST tablet [...] {ml_as_needed} active Ipratropium-Albuterol 0.5-2.5 (3) MG/3ML eCW1 ([facility]) Albuterol 0.833 MG/ML / Ipratropium Brom krish 0.167 MG/ML Inhalant Solution Ipratropium-Albuterol 0.5-2.5 (3) MG/3ML Ipratropium-Albuterol 0.5-2.5 (3) MG/3ML 01/28/2020 12:00:00 AM EST 3.0 {ml_as_needed} active Ipratropium-Albuterol 0.5-2.5 (3) MG/3ML eCW1 ([facility]) Albuterol 0.833 MG/ML / Ipratropium Brom krish 0.167 MG/ML Inhalant Solution Ipratropium-Albuterol 0.5-2.5 (3) MG/3ML Ipratropium-Albuterol 0.5-2.5 (3) MG/3ML 01/28/2020 12:00:00 AM EST 3.0 {ml_as_needed} active Ipratropium-Albuterol 0.5-2.5 (3) MG/3ML eCW1 ([facility]) Albuterol 0.833 MG/ML / Ipratropium Brom krish 0.167 MG/ML Inhalant Solution Ipratropium-Albuterol 0.5-2.5 (3) MG/3ML Ipratropium-Albuterol 0.5-2.5 (3) MG/3ML 01/28/2020 12:00:00 AM EST 3.0 {ml_as_needed} active Ipratropium-Albuterol 0.5-2.5 (3) MG/3ML eCW1 ([facility]) Albuterol 0.833 MG/ML / Ipratropium Brom krish 0.167 MG/ML Inhalant Solution Ipratropium-Albuterol 0.5-2.5 (3) MG/3ML Ipratropium-Albuterol 0.5-2.5 (3) MG/3ML 01/28/2020 12:00:00 AM EST 3.0 {ml_as_needed} active Ipratropium-Albuterol 0.5-2.5 (3) MG/3ML eCW1 ([facility]) Albuterol 0.833 MG/ML / Ipratropium Brom krish 0.167 MG/ML Inhalant Solution Ipratropium-Albuterol 0.5-2.5 (3) MG/3ML Ipratropium-Albuterol 0.5-2.5 (3) MG/3ML 01/28/2020 12:00:00 AM EST 3.0 {ml_as_needed} active Ipratropium-Albuterol 0.5-2.5 (3) MG/3ML eCW1 ([facility]) Albuterol 0.833 MG/ML / Ipratropium Brom krish 0.167 MG/ML Inhalant Solution Ipratropium-Albuterol 0.5-2.5 (3) MG/3ML Ipratropium-Albuterol 0.5-2.5 (3) MG/3ML 01/28/2020 12:00:00 AM EST 3.0 {ml_as_needed} active Ipratropium-Albuterol 0.5-2.5 (3) MG/3ML eCW1 ([facility]) Albuterol 0.833 MG/ML / Ipratropium Brom krish 0.167 MG/ML Inhalant Solution Ipratropium-Albuterol 0.5-2.5 (3) MG/3ML Ipratropium-Albuterol 0.5-2.5 (3) MG/3ML 01/28/2020 12:00:00 AM EST 3.0 {ml_as_needed} active Ipratropium-Albuterol 0.5-2.5 (3) MG/3ML eCW1 ([facility]) Albuterol 0.833 MG/ML / Ipratropium Brom krish 0.167 MG/ML Inhalant Solution Ipratropium-Albuterol 0.5-2.5 (3) MG/3ML Ipratropium-Albuterol 0.5-2.5 (3) MG/3ML 01/28/2020 12:00:00 AM EST 3.0 {ml_as_needed} active Ipratropium-Albuterol 0.5-2.5 (3) MG/3ML eCW1 ([facility]) Albuterol 0.833 MG/ML / Ipratropium Brom krish 0.167 MG/ML Inhalant Solution Ipratropium-Albuterol 0.5-2.5 (3) MG/3ML Ipratropium-Albuterol 0.5-2.5 (3) MG/3ML 01/28/2020 12:00:00 AM EST 3.0 {ml_as_needed} active Ipratropium-Albuterol 0.5-2.5 (3) MG/3ML eCW1 ([facility]) Albuterol 0.833 MG/ML / Ipratropium Brom krish 0.167 MG/ML Inhalant Solution Ipratropium-Albuterol 0.5-2.5 (3) MG/3ML Ipratropium-Albuterol 0.5-2.5 (3) MG/3ML 01/28/2020 12:00:00 AM EST 3.0 {ml_as_needed} active Ipratropium-Albuterol 0.5-2.5 (3) MG/3ML eCW1 ([facility]) Albuterol 0.833 MG/ML / Ipratropium Brom krish 0.167 MG/ML Inhalant Solution Ipratropium-Albuterol 0.5-2.5 (3) MG/3ML Ipratropium-Albuterol 0.5-2.5 (3) MG/3ML 01/28/2020 12:00:00 AM EST 3.0 {ml_as_needed} active Ipratropium-Albuterol 0.5-2.5 (3) MG/3ML eCW1 ([facility]) Morphine Sulfate 15 MG Oral Tablet Morphine Sulfate 15 MG 12:00:00 AM EST 1.0 {tablet_as_needed} active M orphine Sulfate 15 MG eCW1 ([facility]) Morphine Sulfate 15 MG Oral Tablet Morphine Sulfate 15 MG 12:00:00 AM EST 1.0 {tablet_as_needed} active M orphine Sulfate 15 MG eCW1 ([facility]) Morphine Sulfate 15 MG Oral Tablet Morphine Sulfate 15 MG 12:00:00 AM EST 1.0 {tablet_as_needed} active M orphine Sulfate 15 MG eCW1 ([facility]) Morphine Sulfate 15 MG Oral Tablet Morphine Sulfate 15 MG 12:00:00 AM EST 1.0 {tablet_as_needed} active M orphine Sulfate 15 MG eCW1 ([facility]) Morphine Sulfate 15 MG Extended Release Oral Tablet Mo rphine Sulfate ER 15 MG Morphine Sulfate ER 15 MG 01/27/2020 12:00:00 AM EST 1.0 {tablet} active Morphine Sulfate ER 15 MG eCW1 ( [facility]) Morphine Sulfate 15 MG Oral Tablet Morphine Sulfate 15 MG 12:00:00 AM EST 1.0 {tablet_as_needed} active M orphine Sulfate 15 MG eCW1 ([facility]) Morphine Sulfate ER 15 MG UNK 01/27/2020 12:00:00 AM EST 1.0 {tablet} active Morphine Sulfate ER 15 MG eCW1 ( [facility]) Morphine Sulfate ER 15 MG UNK 01/27/2020 12:00:00 AM EST 1.0 {tablet} active Morphine Sulfate ER 15 MG eCW1 ( [facility]) Morphine Sulfate 15 MG Oral Tablet Morphine Sulfate 15 MG 12:00:00 AM EST 1.0 {tablet_as_needed} active M orphine Sulfate 15 MG eCW1 ([facility]) Morphine Sulfate 15 MG Oral Tablet Morphine Sulfate 15 MG 12:00:00 AM EST 1.0 {tablet_as_needed} active M orphine Sulfate 15 MG eCW1 ([facility]) Morphine Sulfate 15 MG Oral Tablet Morphine Sulfate 15 MG 12:00:00 AM EST 1.0 {tablet_as_needed} active M orphine Sulfate 15 MG eCW1 ([facility]) 15 mg 01/27/2020 12:00:00 AM [...] Morphine Sulfate ER 15 MG eCW1 ( [facility]) Morphine Sulfate ER 15 MG UNK 01/26/2020 12:00:00 AM EST 1.0 {tablet} active Morphine Sulfate ER 15 MG eCW1 ( [facility]) Acetaminophen 325 MG / Oxycodone Hydroch loride 10 MG Oral Tablet [Percocet] Percocet 10-325 MG Percocet 10-325 MG 01/22/2020 12:00:00 AM EST 1.0 {tablet_as_needed} active Percocet 10-3 25 MG eCW1 ([facility]) Acetaminophen 325 MG / Oxycodone Hydroch loride 10 MG Oral Tablet [Percocet] Percocet 10-325 MG Percocet 10-325 MG 01/22/2020 12:00:00 AM EST 1.0 {tablet_as_needed} suspended Percocet 10 -325 MG eCW1 ([facility]) Acetaminophen 325 MG / Oxycodone Hydroch loride 10 MG Oral Tablet [Percocet] Percocet 10-325 MG Percocet 10-325 MG 01/22/2020 12:00:00 AM EST 1.0 {tablet_as_needed} suspended Percocet 10 -325 MG eCW1 ([facility]) Acetaminophen 325 MG / Oxycodone Hydroch loride 10 MG Oral Tablet [Percocet] Percocet 10-325 MG Percocet 10-325 MG 01/22/2020 12:00:00 AM EST 1.0 {tablet_as_needed} active Percocet 10-3 25 MG eCW1 ([facility]) Acetaminophen 325 MG / Oxycodone Hydroch loride 10 MG Oral Tablet [Percocet] Percocet 10-325 MG Percocet 10-325 MG 01/22/2020 12:00:00 AM EST 1.0 {tablet_as_needed} active Percocet 10-3 25 MG eCW1 ([facility]) Acetaminophen 325 MG / Oxycodone Hydroch loride 10 MG Oral Tablet [Percocet] Percocet 10-325 MG Percocet 10-325 MG 01/22/2020 12:00:00 AM EST 1.0 {tablet_as_needed} active Percocet 10-3 25 MG eCW1 ([facility]) Acetaminophen 325 MG / Oxycodone Hydroch loride 10 MG Oral Tablet [Percocet] Percocet 10-325 MG Percocet 10-325 MG 01/22/2020 12:00:00 AM EST 1.0 {tablet_as_needed} suspended Percocet 10 -325 MG eCW1 ([facility]) 10-325 mg 01/22/2020 12:00:00 AM [...] {tablet_as_needed} suspended Percocet 10 -325 MG eCW1 ([facility]) Acetaminophen 325 MG / Oxycodone Hydroch loride 10 MG Oral Tablet [Percocet] Percocet 10-325 MG Percocet 10-325 MG 01/22/2020 12:00:00 AM EST 1.0 {tablet_as_needed} active Percocet 10-3 25 MG eCW1 ([facility]) Acetaminophen 325 MG / Oxycodone Hydroch loride 10 MG Oral Tablet [Percocet] Percocet 10-325 MG Percocet 10-325 MG 01/22/2020 12:00:00 AM EST 1.0 {tablet_as_needed} active Percocet 10-3 25 MG eCW1 ([facility]) Acetaminophen 325 MG / Oxycodone Hydroch loride 10 MG Oral Tablet [Percocet] Percocet 10-325 MG Percocet 10-325 MG 01/22/2020 12:00:00 AM EST 1.0 {tablet_as_needed} suspended Percocet 10 -325 MG eCW1 ([facility]) Acetaminophen 325 MG / Oxycodone Hydroch loride 10 MG Oral Tablet [Percocet] Percocet 10-325 MG Percocet 10-325 MG 01/22/2020 12:00:00 AM EST 1.0 {tablet_as_needed} suspended Percocet 10 -325 MG eCW1 ([facility]) Acetaminophen 325 MG / Oxycodone Hydroch loride 10 MG Oral Tablet [Percocet] Percocet 10-325 MG Percocet 10-325 MG 01/22/2020 12:00:00 AM EST 1.0 {tablet_as_needed} active Percocet 10-3 25 MG eCW1 ([facility]) Morphine Sulfate ER 15 MG UNK 01/20/2020 12:00:00 AM EST 1.0 {tablet} active Morphine Sulfate ER 15 MG eCW1 ( [facility]) Morphine Sulfate ER 15 MG UNK 01/20/2020 12:00:00 AM EST 1.0 {tablet} active Morphine Sulfate ER 15 MG eCW1 ( [facility]) Morphine Sulfate ER 15 MG UNK 01/20/2020 12:00:00 AM EST 1.0 {tablet} active Morphine Sulfate ER 15 MG eCW1 ( [facility]) 1 gram 01/20/2020 12:00:00 AM EST tablet 90 TAKE ONE TABLET BY MOUTH THREE TIMES A DAY ON EMPTY STOMACH BEFORE MEAL TAKE ONE TABLET BY MOUTH THREE TIMES A DAY ON EMPTY STOMACH BEFORE MEAL SOLD: 01/21/2020 [facility] Morphine Sulfate ER 15 MG UNK 01/20/2020 12:00:00 AM EST 1.0 {tablet} active Morphine Sulfate ER 15 MG eCW1 ( [facility]) Morphine Sulfate ER 15 MG UNK 01/20/2020 12:00:00 AM EST 1.0 {tablet} active Morphine Sulfate ER 15 MG eCW1 ( [facility]) Morphine Sulfate ER 15 MG UNK 01/20/2020 12:00:00 AM EST 1.0 {tablet} active Morphine Sulfate ER 15 MG eCW1 ( [facility]) Morphine Sulfate ER 15 MG UNK 01/20/2020 12:00:00 AM EST 1.0 {tablet} active Morphine Sulfate ER 15 MG eCW1 ( [facility]) 1 gram 01/16/2020 12:00:00 AM EST tablet 30 TAKE ONE TABLET BY MOUTH ON AN EMPTY STOMACH BEFORE EACH MEAL TAKE ONE TABLET BY MOUTH ON AN EMPTY STO MACH BEFORE EACH MEAL SOLD: 01/20/2020 [facility] 40 mg 01/16/2020 12:00:00 AM EST capsule,delayed release (DR/EC) 30 TAKE ONE CAPSULE BY MOUTH 30 MINUTES BEFORE MORNING MEAL TAKE ONE CAPSULE BY MOUTH 30 MINUTES BEFORE MORNING MEAL SOLD: 01/20/2020 [facility] duloxetine 30 MG Delayed Release Oral Capsule [Cymbalt a] Cymbalta 30 MG Cymbalta 30 MG 01/13/2020 12:00:00 AM EST 1.0 {capsule} acti ve Cymbalta 30 MG eCW1 ([facility]) duloxetine 30 MG Delayed Release Oral Capsule [Cymbalt a] Cymbalta 30 MG Cymbalta 30 MG 01/13/2020 12:00:00 AM EST 1.0 {capsule} acti ve Cymbalta 30 MG eCW1 ([facility]) 30 mg 01/13/2020 12:00:00 AM EST capsule,delayed release (DR/EC) 60 TAKE ONE CAPSULE BY MOUTH TWICE A DAY TAKE ONE CAPSULE BY MOUTH TWICE A DAY SOLD: 01/20/2020 [facility] duloxetine 30 MG Delayed Release Oral Capsule [Cymbalt a] Cymbalta 30 MG Cymbalta 30 MG 01/13/2020 12:00:00 AM EST 1.0 {capsule} acti ve Cymbalta 30 MG eCW1 ([facility]) duloxetine 30 MG Delayed Release Oral Capsule [Cymbalt a] Cymbalta 30 MG Cymbalta 30 MG 01/13/2020 12:00:00 AM EST 1.0 {capsule} acti ve Cymbalta 30 MG eCW1 ([facility]) 30 mg 01/12/2020 12:00:00 AM [...] suspended Spiriva R espimat 1.25 MCG/ACT eCW1 ([facility]) Spiriva Respimat 1.25 MCG/ACT Spiriva Respimat 1.25 MCG/ACT 12/29/2019 12:00:00 AM EST 2.0 {puffs} active Spiriva Resp imat 1.25 MCG/ACT eCW1 ([facility]) 250 mg 12/29/2019 12:00:00 AM EST tablet 30 TAKE ONE-HALF TABLET BY MOUTH TWICE A DAY TAKE ONE-HALF TABLET BY MOUTH TWICE A DAY SOLD: 12/29/2019 [facility] Spiriva Respimat 1.25 MCG/ACT Spiriva Respimat 1.25 MCG/ACT 12/29/2019 12:00:00 AM EST 2.0 {puffs} active Spiriva Resp imat 1.25 MCG/ACT eCW1 ([facility]) Spiriva Respimat 1.25 MCG/ACT Spiriva Respimat 1.25 MCG/ACT 12/29/2019 12:00:00 AM EST 2.0 {puffs} active Spiriva Resp imat 1.25 MCG/ACT eCW1 ([facility]) Spiriva Respimat 1.25 MCG/ACT Spiriva Respimat 1.25 MCG/ACT 12/29/2019 12:00:00 AM EST 2.0 {puffs} active Spiriva Resp imat 1.25 MCG/ACT eCW1 ([facility]) Spiriva Respimat 1.25 MCG/ACT Spiriva Respimat 1.25 MCG/ACT 12/29/2019 12:00:00 AM EST 2.0 {puffs} active Spiriva Resp imat 1.25 MCG/ACT eCW1 ([facility]) Spiriva Respimat 1.25 MCG/ACT Spiriva Respimat 1.25 MCG/ACT 12/29/2019 12:00:00 AM EST 2.0 {puffs} active Spiriva Resp imat 1.25 MCG/ACT eCW1 ([facility]) Spiriva Respimat 1.25 MCG/ACT Spiriva Respimat 1.25 MCG/ACT 12/29/2019 12:00:00 AM EST 2.0 {puffs} suspended Spiriva R espimat 1.25 MCG/ACT eCW1 ([facility]) Spiriva Respimat 1.25 MCG/ACT Spiriva Respimat 1.25 MCG/ACT 12/29/2019 12:00:00 AM EST 2.0 {puffs} suspended Spiriva R espimat 1.25 MCG/ACT eCW1 ([facility]) Spiriva Respimat 1.25 MCG/ACT Spiriva Respimat 1.25 MCG/ACT 12/29/2019 12:00:00 AM EST 2.0 {puffs} active Spiriva Resp imat 1.25 MCG/ACT eCW1 ([facility]) Spiriva Respimat 1.25 MCG/ACT Spiriva Respimat 1.25 MCG/ACT 12/29/2019 12:00:00 AM EST 2.0 {puffs} active Spiriva Resp imat 1.25 MCG/ACT eCW1 ([facility]) Spiriva Respimat 1.25 MCG/ACT Spiriva Respimat 1.25 MCG/ACT 12/29/2019 12:00:00 AM EST 2.0 {puffs} active Spiriva Resp imat 1.25 MCG/ACT eCW1 ([facility]) Spiriva Respimat 1.25 MCG/ACT Spiriva Respimat 1.25 MCG/ACT 12/29/2019 12:00:00 AM EST 2.0 {puffs} active Spiriva Resp imat 1.25 MCG/ACT eCW1 ([facility]) Spiriva Respimat 1.25 MCG/ACT Spiriva Respimat 1.25 MCG/ACT 12/29/2019 12:00:00 AM EST 2.0 {puffs} active Spiriva Resp imat 1.25 MCG/ACT eCW1 ([facility]) Spiriva Respimat 1.25 MCG/ACT Spiriva Respimat 1.25 MCG/ACT 12/29/2019 12:00:00 AM EST 2.0 {puffs} suspended Spiriva R espimat 1.25 MCG/ACT eCW1 ([facility]) Spiriva Respimat 1.25 MCG/ACT Spiriva Respimat 1.25 MCG/ACT 12/29/2019 12:00:00 AM EST 2.0 {puffs} active Spiriva Resp imat 1.25 MCG/ACT eCW1 ([facility]) Spiriva Respimat 1.25 MCG/ACT Spiriva Respimat 1.25 MCG/ACT 12/29/2019 12:00:00 AM EST 2.0 {puffs} active Spiriva Resp imat 1.25 MCG/ACT eCW1 ([facility]) Spiriva Respimat 1.25 MCG/ACT Spiriva Respimat 1.25 MCG/ACT 12/29/2019 12:00:00 AM EST 2.0 {puffs} active Spiriva Resp imat 1.25 MCG/ACT eCW1 ([facility]) Spiriva Respimat 1.25 MCG/ACT Spiriva Respimat 1.25 MCG/ACT 12/29/2019 12:00:00 AM EST 2.0 {puffs} active Spiriva Resp imat 1.25 MCG/ACT eCW1 ([facility]) Spiriva Respimat 1.25 MCG/ACT Spiriva Respimat 1.25 MCG/ACT 12/29/2019 12:00:00 AM EST 2.0 {puffs} active Spiriva Resp imat 1.25 MCG/ACT eCW1 ([facility]) Spiriva Respimat 1.25 MCG/ACT Spiriva Respimat 1.25 MCG/ACT 12/29/2019 12:00:00 AM EST 2.0 {puffs} active Spiriva Resp imat 1.25 MCG/ACT eCW1 ([facility]) Spiriva Respimat 1.25 MCG/ACT Spiriva Respimat 1.25 MCG/ACT 12/29/2019 12:00:00 AM EST 2.0 {puffs} suspended Spiriva R espimat 1.25 MCG/ACT eCW1 ([facility]) Spiriva Respimat 1.25 MCG/ACT Spiriva Respimat 1.25 MCG/ACT 12/29/2019 12:00:00 AM EST 2.0 {puffs} active Spiriva Resp imat 1.25 MCG/ACT eCW1 ([facility]) Spiriva Respimat 1.25 MCG/ACT Spiriva Respimat 1.25 MCG/ACT 12/29/2019 12:00:00 AM EST 2.0 {puffs} active Spiriva Resp imat 1.25 MCG/ACT eCW1 ([facility]) Spiriva Respimat 1.25 MCG/ACT Spiriva Respimat 1.25 MCG/ACT 12/29/2019 12:00:00 AM EST 2.0 {puffs} active Spiriva Resp imat 1.25 MCG/ACT eCW1 ([facility]) Spiriva Respimat 1.25 MCG/ACT Spiriva Respimat 1.25 MCG/ACT 12/29/2019 12:00:00 AM EST 2.0 {puffs} active Spiriva Resp imat 1.25 MCG/ACT eCW1 ([facility]) Spiriva Respimat 1.25 MCG/ACT Spiriva Respimat 1.25 MCG/ACT 12/29/2019 12:00:00 AM EST 2.0 {puffs} active Spiriva Resp imat 1.25 MCG/ACT eCW1 ([facility]) Spiriva Respimat 1.25 MCG/ACT Spiriva Respimat 1.25 MCG/ACT 12/29/2019 12:00:00 AM EST 2.0 {puffs} active Spiriva Resp imat 1.25 MCG/ACT eCW1 ([facility]) 20 mg 12/29/2019 12:00:00 AM EST tablet 90 TAKE ONE TABLET BY MOUTH THREE TIMES A DAY TAKE ONE TABLET BY MOUTH THREE TIMES A DAY SOLD: 01/26/2020 [facility] Spiriva Respimat 1.25 MCG/ACT Spiriva Respimat 1.25 MCG/ACT 12/29/2019 12:00:00 AM EST 2.0 {puffs} suspended Spiriva R espimat 1.25 MCG/ACT eCW1 ([facility]) Spiriva Respimat 1.25 MCG/ACT Spiriva Respimat 1.25 MCG/ACT 12/29/2019 12:00:00 AM EST 2.0 {puffs} suspended Spiriva R espimat 1.25 MCG/ACT eCW1 ([facility]) Spiriva Respimat 1.25 MCG/ACT Spiriva Respimat 1.25 MCG/ACT 12/29/2019 12:00:00 AM EST 2.0 {puffs} active Spiriva Resp imat 1.25 MCG/ACT eCW1 ([facility]) Spiriva Respimat 1.25 MCG/ACT Spiriva Respimat 1.25 MCG/ACT 12/29/2019 12:00:00 AM EST 2.0 {puffs} suspended Spiriva R espimat 1.25 MCG/ACT eCW1 ([facility]) Spiriva Respimat 1.25 MCG/ACT Spiriva Respimat 1.25 MCG/ACT 12/29/2019 12:00:00 AM EST 2.0 {puffs} active Spiriva Resp imat 1.25 MCG/ACT eCW1 ([facility]) Spiriva Respimat 1.25 MCG/ACT Spiriva Respimat 1.25 MCG/ACT 12/29/2019 12:00:00 AM EST 2.0 {puffs} active Spiriva Resp imat 1.25 MCG/ACT eCW1 ([facility]) 20 mg 12/29/2019 12:00:00 AM EST tablet 90 TAKE ONE TABLET BY MOUTH THREE TIMES A DAY TAKE ONE TABLET BY MOUTH THREE TIMES A DAY SOLD: 12/30/2019 [facility] Spiriva Respimat 1.25 MCG/ACT Spiriva Respimat 1.25 MCG/ACT 12/29/2019 12:00:00 AM EST 2.0 {puffs} active Spiriva Resp imat 1.25 MCG/ACT eCW1 ([facility]) Spiriva Respimat 1.25 MCG/ACT Spiriva Respimat 1.25 MCG/ACT 12/29/2019 12:00:00 AM EST 2.0 {puffs} active Spiriva Resp imat 1.25 MCG/ACT eCW1 ([facility]) Spiriva Respimat 1.25 MCG/ACT Spiriva Respimat 1.25 MCG/ACT 12/29/2019 12:00:00 AM EST 2.0 {puffs} suspended Spiriva R espimat 1.25 MCG/ACT eCW1 ([facility]) Spiriva Respimat 1.25 MCG/ACT Spiriva Respimat 1.25 MCG/ACT 12/29/2019 12:00:00 AM EST 2.0 {puffs} active Spiriva Resp imat 1.25 MCG/ACT eCW1 ([facility]) Spiriva Respimat 1.25 MCG/ACT Spiriva Respimat 1.25 MCG/ACT 12/29/2019 12:00:00 AM EST 2.0 {puffs} active Spiriva Resp imat 1.25 MCG/ACT eCW1 ([facility]) 2 mg 12/25/2019 12:00:00 AM [...] EST active Omeprazo le 40 MG eCW1 ([facility]) Acetaminophen 325 MG / Oxycodone Hydroch loride 10 MG Oral Tablet [Percocet] Percocet 10-325 MG Percocet 10-325 MG 12/22/2019 12:00:00 AM EST 1.0 {tablet_as_needed} active Percocet 10-3 25 MG eCW1 ([facility]) Acetaminophen 325 MG / Oxycodone Hydroch loride 10 MG Oral Tablet [Percocet] Percocet 10-325 MG Percocet 10-325 MG 12/22/2019 12:00:00 AM EST 1.0 {tablet_as_needed} active Percocet 10-3 25 MG eCW1 ([facility]) Sucralfate 1000 MG Oral Tablet Sucralfate 1 GM Sucralfate 1 GM 12/22/2019 12:00:00 AM EST 1.0 {tablet_on_an_empty_stomach} active Sucralfate 1 GM eCW1 ([facility]) Sucralfate 1000 MG Oral Tablet Sucralfate 1 GM Sucralfate 1 GM 12/22/2019 12:00:00 AM EST 1.0 {tablet_on_an_empty_stomach} active Sucralfate 1 GM eCW1 ([facility]) Omeprazole 40 MG Delayed Release Oral Capsule Omeprazole 40 MG 12/22/2019 12:00:00 AM EST active Omeprazo le 40 MG eCW1 ([facility]) Omeprazole 40 MG Delayed Release Oral Capsule Omeprazole 40 MG 12/22/2019 12:00:00 AM EST active Omeprazo le 40 MG eCW1 ([facility]) Sucralfate 1000 MG Oral Tablet Sucralfate 1 GM Sucralfate 1 GM 12/22/2019 12:00:00 AM EST 1.0 {tablet_on_an_empty_stomach} active Sucralfate 1 GM eCW1 ([facility]) Sucralfate 1000 MG Oral Tablet Sucralfate 1 GM Sucralfate 1 GM 12/22/2019 12:00:00 AM EST 1.0 {tablet_on_an_empty_stomach} active Sucralfate 1 GM eCW1 ([facility]) Omeprazole 40 MG Delayed Release Oral Capsule Omeprazole 40 MG 12/22/2019 12:00:00 AM EST active Omeprazo le 40 MG eCW1 ([facility]) Acetaminophen 325 MG / Oxycodone Hydroch loride 10 MG Oral Tablet [Percocet] Percocet 10-325 MG Percocet 10-325 MG 12/22/2019 12:00:00 AM EST 1.0 {tablet_as_needed} active Percocet 10-3 25 MG eCW1 ([facility]) Omeprazole 40 MG Delayed Release Oral Capsule Omeprazole 40 MG 12/22/2019 12:00:00 AM EST active Omeprazo le 40 MG eCW1 ([facility]) Sucralfate 1000 MG Oral Tablet Sucralfate 1 GM Sucralfate 1 GM 12/22/2019 12:00:00 AM EST 1.0 {tablet_on_an_empty_stomach} active Sucralfate 1 GM eCW1 ([facility]) Acetaminophen 325 MG / Oxycodone Hydroch loride 10 MG Oral Tablet [Percocet] Percocet 10-325 MG Percocet 10-325 MG 12/22/2019 12:00:00 AM EST 1.0 {tablet_as_needed} active Percocet 10-3 25 MG eCW1 ([facility]) Sucralfate 1000 MG Oral Tablet Sucralfate 1 GM Sucralfate 1 GM 12/22/2019 12:00:00 AM EST 1.0 {tablet_on_an_empty_stomach} active Sucralfate 1 GM eCW1 ([facility]) 1 gram 12/22/2019 12:00:00 AM EST tablet 90 TAKE 1 TABLET BY MOUTH ON AN EMPTY STOMACH BEFORE EACH MEAL TAKE 1 TABLET BY MOUTH ON AN EMPTY STOMA CH BEFORE EACH MEAL SOLD: 12/22/2019 [facility] Sucralfate 1000 MG Oral Tablet Sucralfate 1 GM Sucralfate 1 GM 12/22/2019 12:00:00 AM EST 1.0 {tablet_on_an_empty_stomach} active Sucralfate 1 GM eCW1 ([facility]) Sucralfate 1000 MG Oral Tablet Sucralfate 1 GM Sucralfate 1 GM 12/22/2019 12:00:00 AM EST 1.0 {tablet_on_an_empty_stomach} active Sucralfate 1 GM eCW1 ([facility]) Omeprazole 40 MG Delayed Release Oral Capsule Omeprazole 40 MG 12/22/2019 12:00:00 AM EST active Omeprazo le 40 MG eCW1 ([facility]) Sucralfate 1000 MG Oral Tablet Sucralfate 1 GM Sucralfate 1 GM 12/22/2019 12:00:00 AM EST 1.0 {tablet_on_an_empty_stomach} active Sucralfate 1 GM eCW1 ([facility]) Sucralfate 1000 MG Oral Tablet Sucralfate 1 GM Sucralfate 1 GM 12/22/2019 12:00:00 AM EST 1.0 {tablet_on_an_empty_stomach} active Sucralfate 1 GM eCW1 ([facility]) Acetaminophen 325 MG / Oxycodone Hydroch loride 10 MG Oral Tablet [Percocet] Percocet 10-325 MG Percocet 10-325 MG 12/22/2019 12:00:00 AM EST 1.0 {tablet_as_needed} active Percocet 10-3 25 MG eCW1 ([facility]) Omeprazole 40 MG Delayed Release Oral Capsule Omeprazole 40 MG 12/22/2019 12:00:00 AM EST active Omeprazo le 40 MG eCW1 ([facility]) Sucralfate 1000 MG Oral Tablet Sucralfate 1 GM Sucralfate 1 GM 12/22/2019 12:00:00 AM EST 1.0 {tablet_on_an_empty_stomach} active Sucralfate 1 GM eCW1 ([facility]) Omeprazole 40 MG Delayed Release Oral Capsule Omeprazole 40 MG 12/22/2019 12:00:00 AM EST active Omeprazo le 40 MG eCW1 ([facility]) Acetaminophen 325 MG / Oxycodone Hydroch loride 10 MG Oral Tablet [Percocet] Percocet 10-325 MG Percocet 10-325 MG 12/22/2019 12:00:00 AM EST 1.0 {tablet_as_needed} active Percocet 10-3 25 MG eCW1 ([facility]) Sucralfate 1000 MG Oral Tablet Sucralfate 1 GM Sucralfate 1 GM 12/22/2019 12:00:00 AM EST 1.0 {tablet_on_an_empty_stomach} active Sucralfate 1 GM eCW1 ([facility]) Sucralfate 1000 MG Oral Tablet Sucralfate 1 GM Sucralfate 1 GM 12/22/2019 12:00:00 AM EST 1.0 {tablet_on_an_empty_stomach} active Sucralfate 1 GM eCW1 ([facility]) Omeprazole 40 MG Delayed Release Oral Capsule Omeprazole 40 MG 12/22/2019 12:00:00 AM EST active Omeprazo le 40 MG eCW1 ([facility]) Omeprazole 40 MG Delayed Release Oral Capsule Omeprazole 40 MG 12/22/2019 12:00:00 AM EST active Omeprazo le 40 MG eCW1 ([facility]) Omeprazole 40 MG Delayed Release Oral Capsule Omeprazole 40 MG 12/22/2019 12:00:00 AM EST active Omeprazo le 40 MG eCW1 ([facility]) Sucralfate 1000 MG Oral Tablet Sucralfate 1 GM Sucralfate 1 GM 12/22/2019 12:00:00 AM EST 1.0 {tablet_on_an_empty_stomach} active Sucralfate 1 GM eCW1 ([facility]) Sucralfate 1000 MG Oral Tablet Sucralfate 1 GM Sucralfate 1 GM 12/22/2019 12:00:00 AM EST 1.0 {tablet_on_an_empty_stomach} active Sucralfate 1 GM eCW1 ([facility]) Omeprazole 40 MG Delayed Release Oral Capsule Omeprazole 40 MG 12/22/2019 12:00:00 AM EST active Omeprazo le 40 MG eCW1 ([facility]) Acetaminophen 325 MG / Oxycodone Hydroch loride 10 MG Oral Tablet [Percocet] Percocet 10-325 MG Percocet 10-325 MG 12/22/2019 12:00:00 AM EST 1.0 {tablet_as_needed} active Percocet 10-3 25 MG eCW1 ([facility]) Sucralfate 1000 MG Oral Tablet Sucralfate 1 GM Sucralfate 1 GM 12/22/2019 12:00:00 AM EST 1.0 {tablet_on_an_empty_stomach} active Sucralfate 1 GM eCW1 ([facility]) Omeprazole 40 MG Delayed Release Oral Capsule Omeprazole 40 MG 12/22/2019 12:00:00 AM EST active Omeprazo le 40 MG eCW1 ([facility]) Omeprazole 40 MG Delayed Release Oral Capsule Omeprazole 40 MG 12/22/2019 12:00:00 AM EST active Omeprazo le 40 MG eCW1 ([facility]) Acetaminophen 325 MG / Oxycodone Hydroch loride 10 MG Oral Tablet [Percocet] Percocet 10-325 MG Percocet 10-325 MG 12/22/2019 12:00:00 AM EST 1.0 {tablet_as_needed} active Percocet 10-3 25 MG eCW1 ([facility]) Sucralfate 1000 MG Oral Tablet Sucralfate 1 GM Sucralfate 1 GM 12/22/2019 12:00:00 AM EST 1.0 {tablet_on_an_empty_stomach} active Sucralfate 1 GM eCW1 ([facility]) Sucralfate 1000 MG Oral Tablet Sucralfate 1 GM Sucralfate 1 GM 12/22/2019 12:00:00 AM EST 1.0 {tablet_on_an_empty_stomach} active Sucralfate 1 GM eCW1 ([facility]) Sucralfate 1000 MG Oral Tablet Sucralfate 1 GM Sucralfate 1 GM 12/22/2019 12:00:00 AM EST 1.0 {tablet_on_an_empty_stomach} active Sucralfate 1 GM eCW1 ([facility]) Omeprazole 40 MG Delayed Release Oral Capsule Omeprazole 40 MG 12/22/2019 12:00:00 AM EST active Omeprazo le 40 MG eCW1 ([facility]) Omeprazole 40 MG Delayed Release Oral Capsule Omeprazole 40 MG 12/22/2019 12:00:00 AM EST active Omeprazo le 40 MG eCW1 ([facility]) Omeprazole 40 MG Delayed Release Oral Capsule Omeprazole 40 MG 12/22/2019 12:00:00 AM EST active Omeprazo le 40 MG eCW1 ([facility]) Sucralfate 1000 MG Oral Tablet Sucralfate 1 GM Sucralfate 1 GM 12/22/2019 12:00:00 AM EST 1.0 {tablet_on_an_empty_stomach} active Sucralfate 1 GM eCW1 ([facility]) Omeprazole 40 MG Delayed Release Oral Capsule Omeprazole 40 MG 12/22/2019 12:00:00 AM EST active Omeprazo le 40 MG eCW1 ([facility]) Sucralfate 1000 MG Oral Tablet Sucralfate 1 GM Sucralfate 1 GM 12/22/2019 12:00:00 AM EST 1.0 {tablet_on_an_empty_stomach} active Sucralfate 1 GM eCW1 ([facility]) Omeprazole 40 MG Delayed Release Oral Capsule Omeprazole 40 MG 12/22/2019 12:00:00 AM EST active Omeprazo le 40 MG eCW1 ([facility]) Omeprazole 40 MG Delayed Release Oral Capsule Omeprazole 40 MG 12/22/2019 12:00:00 AM EST active Omeprazo le 40 MG eCW1 ([facility]) Acetaminophen 325 MG / Oxycodone Hydroch loride 10 MG Oral Tablet [Percocet] Percocet 10-325 MG Percocet 10-325 MG 12/22/2019 12:00:00 AM EST 1.0 {tablet_as_needed} active Percocet 10-3 25 MG eCW1 ([facility]) Sucralfate 1000 MG Oral Tablet Sucralfate 1 GM Sucralfate 1 GM 12/22/2019 12:00:00 AM EST 1.0 {tablet_on_an_empty_stomach} active Sucralfate 1 GM eCW1 ([facility]) Omeprazole 40 MG Delayed Release Oral Capsule Omeprazole 40 MG 12/22/2019 12:00:00 AM EST active Omeprazo le 40 MG eCW1 ([facility]) Sucralfate 1000 MG Oral Tablet Sucralfate 1 GM Sucralfate 1 GM 12/22/2019 12:00:00 AM EST 1.0 {tablet_on_an_empty_stomach} active Sucralfate 1 GM eCW1 ([facility]) Omeprazole 40 MG Delayed Release Oral Capsule Omeprazole 40 MG 12/22/2019 12:00:00 AM EST active Omeprazo le 40 MG eCW1 ([facility]) Omeprazole 40 MG Delayed Release Oral Capsule Omeprazole 40 MG 12/22/2019 12:00:00 AM EST active Omeprazo le 40 MG eCW1 ([facility]) Acetaminophen 325 MG / Oxycodone Hydroch loride 10 MG Oral Tablet [Percocet] Percocet 10-325 MG Percocet 10-325 MG 12/22/2019 12:00:00 AM EST 1.0 {tablet_as_needed} active Percocet 10-3 25 MG eCW1 ([facility]) Sucralfate 1000 MG Oral Tablet Sucralfate 1 GM Sucralfate 1 GM 12/22/2019 12:00:00 AM EST 1.0 {tablet_on_an_empty_stomach} active Sucralfate 1 GM eCW1 ([facility]) Sucralfate 1000 MG Oral Tablet Sucralfate 1 GM Sucralfate 1 GM 12/22/2019 12:00:00 AM EST 1.0 {tablet_on_an_empty_stomach} active Sucralfate 1 GM W1 ([facility]) Sucralfate 1000 MG Oral Tablet Sucralfate 1 GM Sucralfate 1 GM 12/22/2019 12:00:00 AM EST 1.0 {tablet_on_an_empty_stomach} active Sucralfate 1 GM eCW1 ([facility]) Sucralfate 1000 MG Oral Tablet Sucralfate 1 GM Sucralfate 1 GM 12/22/2019 12:00:00 AM EST 1.0 {tablet_on_an_empty_stomach} active Sucralfate 1 GM W1 ([facility]) Acetaminophen 325 MG / Oxycodone Hydroch loride 10 MG Oral Tablet [Percocet] Percocet 10-325 MG Percocet 10-325 MG 12/22/2019 12:00:00 AM EST 1.0 {tablet_as_needed} active Percocet 10-3 25 MG [facility] ([facility]) Omeprazole 40 MG Delayed Release Oral Capsule Omeprazole 40 MG 12/22/2019 12:00:00 AM EST active Omeprazo le 40 MG [facility] ([facility]) Omeprazole 40 MG Delayed Release Oral Capsule Omeprazole 40 MG 12/22/2019 12:00:00 AM EST active Omeprazo le 40 MG [facility] ([facility]) Sucralfate 1000 MG Oral Tablet Sucralfate 1 GM Sucralfate 1 GM 12/22/2019 12:00:00 AM EST 1.0 {tablet_on_an_empty_stomach} active Sucralfate 1 GM W1 ([facility]) Sucralfate 1000 MG Oral Tablet Sucralfate 1 GM Sucralfate 1 GM 12/22/2019 12:00:00 AM EST 1.0 {tablet_on_an_empty_stomach} active Sucralfate 1 GM eCW1 ([facility]) Sucralfate 1000 MG Oral Tablet Sucralfate 1 GM Sucralfate 1 GM 12/22/2019 12:00:00 AM EST 1.0 {tablet_on_an_empty_stomach} active Sucralfate 1 GM eCW1 ([facility]) Sucralfate 1000 MG Oral Tablet Sucralfate 1 GM Sucralfate 1 GM 12/22/2019 12:00:00 AM EST 1.0 {tablet_on_an_empty_stomach} active Sucralfate 1 GM eCW1 ([facility]) Omeprazole 40 MG Delayed Release Oral Capsule Omeprazole 40 MG 12/22/2019 12:00:00 AM EST active Omeprazo le 40 MG eCW1 ([facility]) Sucralfate 1000 MG Oral Tablet Sucralfate 1 GM Sucralfate 1 GM 12/22/2019 12:00:00 AM EST 1.0 {tablet_on_an_empty_stomach} active Sucralfate 1 GM eCW1 ([facility]) Acetaminophen 325 MG / Oxycodone Hydroch loride 10 MG Oral Tablet [Percocet] Percocet 10-325 MG Percocet 10-325 MG 12/22/2019 12:00:00 AM EST 1.0 {tablet_as_needed} active Percocet 10-3 25 MG eCW1 ([facility]) Acetaminophen 325 MG / Oxycodone Hydroch loride 10 MG Oral Tablet [Percocet] Percocet 10-325 MG Percocet 10-325 MG 12/22/2019 12:00:00 AM EST 1.0 {tablet_as_needed} active Percocet 10-3 25 MG eCW1 ([facility]) Acetaminophen 325 MG / Oxycodone Hydroch loride 10 MG Oral Tablet [Percocet] Percocet 10-325 MG Percocet 10-325 MG 12/22/2019 12:00:00 AM EST 1.0 {tablet_as_needed} active Percocet 10-3 25 MG eCW1 ([facility]) Acetaminophen 325 MG / Oxycodone Hydroch loride 10 MG Oral Tablet [Percocet] Percocet 10-325 MG Percocet 10-325 MG 12/22/2019 12:00:00 AM EST 1.0 {tablet_as_needed} active Percocet 10-3 25 MG eCW1 ([facility]) Omeprazole 40 MG Delayed Release Oral Capsule Omeprazole 40 MG 12/22/2019 12:00:00 AM EST active Omeprazo le 40 MG eCW1 ([facility]) Sucralfate 1000 MG Oral Tablet Sucralfate 1 GM Sucralfate 1 GM 12/22/2019 12:00:00 AM EST 1.0 {tablet_on_an_empty_stomach} active Sucralfate 1 GM eCW1 ([facility]) Omeprazole 40 MG Delayed Release Oral Capsule Omeprazole 40 MG 12/22/2019 12:00:00 AM EST active Omeprazo le 40 MG eCW1 ([facility]) Sucralfate 1000 MG Oral Tablet Sucralfate 1 GM Sucralfate 1 GM 12/22/2019 12:00:00 AM EST 1.0 {tablet_on_an_empty_stomach} active Sucralfate 1 GM eCW1 ([facility]) Sucralfate 1000 MG Oral Tablet Sucralfate 1 GM Sucralfate 1 GM 12/22/2019 12:00:00 AM EST 1.0 {tablet_on_an_empty_stomach} active Sucralfate 1 GM eCW1 ([facility]) Acetaminophen 325 MG / Oxycodone Hydroch loride 10 MG Oral Tablet [Percocet] Percocet 10-325 MG Percocet 10-325 MG 12/22/2019 12:00:00 AM EST 1.0 {tablet_as_needed} active Percocet 10-3 25 MG eCW1 ([facility]) Acetaminophen 325 MG / Oxycodone Hydroch loride 10 MG Oral Tablet [Percocet] Percocet 10-325 MG Percocet 10-325 MG 12/22/2019 12:00:00 AM EST 1.0 {tablet_as_needed} active Percocet 10-3 25 MG eCW1 ([facility]) Sucralfate 1000 MG Oral Tablet Sucralfate 1 GM Sucralfate 1 GM 12/22/2019 12:00:00 AM EST 1.0 {tablet_on_an_empty_stomach} active Sucralfate 1 GM eCW1 ([facility]) Sucralfate 1000 MG Oral Tablet Sucralfate 1 GM Sucralfate 1 GM 12/22/2019 12:00:00 AM EST 1.0 {tablet_on_an_empty_stomach} active Sucralfate 1 GM eCW1 ([facility]) Omeprazole 40 MG Delayed Release Oral Capsule Omeprazole 40 MG 12/22/2019 12:00:00 AM EST active Omeprazo le 40 MG eCW1 ([facility]) Omeprazole 40 MG Delayed Release Oral Capsule Omeprazole 40 MG 12/22/2019 12:00:00 AM EST active Omeprazo le 40 MG eCW1 ([facility]) Acetaminophen 325 MG / Oxycodone Hydroch loride 10 MG Oral Tablet [Percocet] Percocet 10-325 MG Percocet 10-325 MG 12/22/2019 12:00:00 AM EST 1.0 {tablet_as_needed} active Percocet 10-3 25 MG eCW1 ([facility]) Acetaminophen 325 MG / Oxycodone Hydroch loride 10 MG Oral Tablet [Percocet] Percocet 10-325 MG Percocet 10-325 MG 12/22/2019 12:00:00 AM EST 1.0 {tablet_as_needed} active Percocet 10-3 25 MG eCW1 ([facility]) Omeprazole 40 MG Delayed Release Oral Capsule Omeprazole 40 MG 12/22/2019 12:00:00 AM EST active Omeprazo le 40 MG eCW1 ([facility]) 40 mg 12/22/2019 12:00:00 AM EST capsule,delayed release (DR/EC) 30 TAKE 1 CAPSULE BY MOUTH 30 MINS. BEFORE MORNING MEAL TAKE 1 CAPSULE BY MOUTH 30 MINS. BEFORE MORNING MEAL SOLD: 12/22/2019 [facility] Omeprazole 40 MG Delayed Release Oral Capsule Omeprazole 40 MG 12/22/2019 12:00:00 AM EST active Omeprazo le 40 MG eCW1 ([facility]) Sucralfate 1000 MG Oral Tablet Sucralfate 1 GM Sucralfate 1 GM 12/22/2019 12:00:00 AM EST 1.0 {tablet_on_an_empty_stomach} active Sucralfate 1 GM eCW1 ([facility]) Omeprazole 40 MG Delayed Release Oral Capsule Omeprazole 40 MG 12/22/2019 12:00:00 AM EST active Omeprazo le 40 MG eCW1 ([facility]) Acetaminophen 325 MG / Oxycodone Hydroch loride 10 MG Oral Tablet [Percocet] Percocet 10-325 MG Percocet 10-325 MG 12/22/2019 12:00:00 AM EST 1.0 {tablet_as_needed} active Percocet 10-3 25 MG eCW1 ([facility]) Sucralfate 1000 MG Oral Tablet Sucralfate 1 GM Sucralfate 1 GM 12/22/2019 12:00:00 AM EST 1.0 {tablet_on_an_empty_stomach} active Sucralfate 1 GM eCW1 ([facility]) Sucralfate 1000 MG Oral Tablet Sucralfate 1 GM Sucralfate 1 GM 12/22/2019 12:00:00 AM EST 1.0 {tablet_on_an_empty_stomach} active Sucralfate 1 GM eCW1 ([facility]) Omeprazole 40 MG Delayed Release Oral Capsule Omeprazole 40 MG 12/22/2019 12:00:00 AM EST active Omeprazo le 40 MG eCW1 ([facility]) Omeprazole 40 MG Delayed Release Oral Capsule Omeprazole 40 MG 12/22/2019 12:00:00 AM EST active Omeprazo le 40 MG eCW1 ([facility]) Omeprazole 40 MG Delayed Release Oral Capsule Omeprazole 40 MG 12/22/2019 12:00:00 AM EST active Omeprazo le 40 MG eCW1 ([facility]) Acetaminophen 325 MG / Oxycodone Hydroch loride 10 MG Oral Tablet [Percocet] Percocet 10-325 MG Percocet 10-325 MG 12/22/2019 12:00:00 AM EST 1.0 {tablet_as_needed} active Percocet 10-3 25 MG eCW1 ([facility]) Acetaminophen 325 MG / Oxycodone Hydroch loride 10 MG Oral Tablet [Percocet] Percocet 10-325 MG Percocet 10-325 MG 12/22/2019 12:00:00 AM EST 1.0 {tablet_as_needed} active Percocet 10-3 25 MG eCW1 ([facility]) Acetaminophen 325 MG / Oxycodone Hydroch loride 10 MG Oral Tablet [Percocet] Percocet 10-325 MG Percocet 10-325 MG 12/22/2019 12:00:00 AM EST 1.0 {tablet_as_needed} active Percocet 10-3 25 MG eCW1 ([facility]) Omeprazole 40 MG Delayed Release Oral Capsule Omeprazole 40 MG 12/22/2019 12:00:00 AM EST active Omeprazo le 40 MG eCW1 ([facility]) Acetaminophen 325 MG / Oxycodone Hydroch loride 10 MG Oral Tablet [Percocet] Percocet 10-325 MG Percocet 10-325 MG 12/22/2019 12:00:00 AM EST 1.0 {tablet_as_needed} active Percocet 10-3 25 MG eCW1 ([facility]) Sucralfate 1000 MG Oral Tablet Sucralfate 1 GM Sucralfate 1 GM 12/22/2019 12:00:00 AM EST 1.0 {tablet_on_an_empty_stomach} active Sucralfate 1 GM eCW1 ([facility]) Sucralfate 1000 MG Oral Tablet Sucralfate 1 GM Sucralfate 1 GM 12/22/2019 12:00:00 AM EST 1.0 {tablet_on_an_empty_stomach} active Sucralfate 1 GM eCW1 ([facility]) Omeprazole 40 MG Delayed Release Oral Capsule Omeprazole 40 MG 12/22/2019 12:00:00 AM EST active Omeprazo le 40 MG eCW1 ([facility]) Omeprazole 40 MG Delayed Release Oral Capsule Omeprazole 40 MG 12/22/2019 12:00:00 AM EST active Omeprazo le 40 MG eCW1 ([facility]) Omeprazole 40 MG Delayed Release Oral Capsule Omeprazole 40 MG 12/22/2019 12:00:00 AM EST active Omeprazo le 40 MG eCW1 ([facility]) Omeprazole 40 MG Delayed Release Oral Capsule Omeprazole 40 MG 12/22/2019 12:00:00 AM EST active Omeprazo le 40 MG eCW1 ([facility]) Acetaminophen 325 MG / Oxycodone Hydroch loride 10 MG Oral Tablet [Percocet] Percocet 10-325 MG Percocet 10-325 MG 12/22/2019 12:00:00 AM EST 1.0 {tablet_as_needed} active Percocet 10-3 25 MG eCW1 ([facility]) Acetaminophen 325 MG / Oxycodone Hydroch loride 10 MG Oral Tablet [Percocet] Percocet 10-325 MG Percocet 10-325 MG 12/22/2019 12:00:00 AM EST 1.0 {tablet_as_needed} active Percocet 10-3 25 MG eCW1 ([facility]) Sucralfate 1000 MG Oral Tablet Sucralfate 1 GM Sucralfate 1 GM 12/22/2019 12:00:00 AM EST 1.0 {tablet_on_an_empty_stomach} active Sucralfate 1 GM eCW1 ([facility]) Sucralfate 1000 MG Oral Tablet Sucralfate 1 GM Sucralfate 1 GM 12/22/2019 12:00:00 AM EST 1.0 {tablet_on_an_empty_stomach} active Sucralfate 1 GM eCW1 ([facility]) Omeprazole 40 MG Delayed Release Oral Capsule Omeprazole 40 MG 12/22/2019 12:00:00 AM EST active Omeprazo le 40 MG eCW1 ([facility]) Acetaminophen 325 MG / Oxycodone Hydroch loride 10 MG Oral Tablet [Percocet] Percocet 10-325 MG Percocet 10-325 MG 12/22/2019 12:00:00 AM EST 1.0 {tablet_as_needed} active Percocet 10-3 25 MG eCW1 ([facility]) Acetaminophen 325 MG / Oxycodone Hydroch loride 10 MG Oral Tablet [Percocet] Percocet 10-325 MG Percocet 10-325 MG 12/22/2019 12:00:00 AM EST 1.0 {tablet_as_needed} active Percocet 10-3 25 MG eCW1 ([facility]) Sucralfate 1000 MG Oral Tablet Sucralfate 1 GM Sucralfate 1 GM 12/22/2019 12:00:00 AM EST 1.0 {tablet_on_an_empty_stomach} active Sucralfate 1 GM eCW1 ([facility]) Omeprazole 40 MG Delayed Release Oral Capsule Omeprazole 40 MG 12/22/2019 12:00:00 AM EST active Omeprazo le 40 MG eCW1 ([facility]) Sucralfate 1000 MG Oral Tablet Sucralfate 1 GM Sucralfate 1 12/22/2019 12:00:00 AM EST 1.0 {tablet_on_an_empty_stomach} active Sucralfate 1 GM eCW1 ([facility]) Sucralfate 1000 MG Oral Tablet Sucralfate 1 GM Sucralfate 1 12/22/2019 12:00:00 AM EST 1.0 {tablet_on_an_empty_stomach} active Sucralfate 1 GM eCW1 ([facility]) Omeprazole 40 MG Delayed Release Oral Capsule Omeprazole 40 MG 12/22/2019 12:00:00 AM EST active Omeprazo le 40 MG eCW1 ([facility]) Omeprazole 40 MG Delayed Release Oral Capsule Omeprazole 40 MG 12/22/2019 12:00:00 AM EST active Omeprazo le 40 MG eCW1 ([facility]) Sucralfate 1000 MG Oral Tablet Sucralfate 1 GM Sucralfate 1 12/22/2019 12:00:00 AM EST 1.0 {tablet_on_an_empty_stomach} active Sucralfate 1 GM eCW1 ([facility]) Sucralfate 1000 MG Oral Tablet Sucralfate 1 GM Sucralfate 1 GM 12/22/2019 12:00:00 AM EST 1.0 {tablet_on_an_empty_stomach} active Sucralfate 1 GM eCW1 ([facility]) Omeprazole 40 MG Delayed Release Oral Capsule Omeprazole 40 MG 12/22/2019 12:00:00 AM EST active Omeprazo le 40 MG eCW1 ([facility]) Acetaminophen 325 MG / Oxycodone Hydroch loride 10 MG Oral Tablet [Percocet] Percocet 10-325 MG Percocet 10-325 MG 12/22/2019 12:00:00 AM EST 1.0 {tablet_as_needed} active Percocet 10-3 25 MG eCW1 ([facility]) Omeprazole 40 MG Delayed Release Oral Capsule Omeprazole 40 MG 12/22/2019 12:00:00 AM EST active Omeprazo le 40 MG eCW1 ([facility]) Omeprazole 40 MG Delayed Release Oral Capsule Omeprazole 40 MG 12/22/2019 12:00:00 AM EST active Omeprazo le 40 MG eCW1 ([facility]) Acetaminophen 325 MG / Oxycodone Hydroch loride 10 MG Oral Tablet [Percocet] Percocet 10-325 MG Percocet 10-325 MG 12/22/2019 12:00:00 AM EST 1.0 {tablet_as_needed} active Percocet 10-3 25 MG eCW1 ([facility]) Omeprazole 40 MG Delayed Release Oral Capsule Omeprazole 40 MG 12/22/2019 12:00:00 AM EST active Omeprazo le 40 MG eCW1 ([facility]) Omeprazole 40 MG Delayed Release Oral Capsule Omeprazole 40 MG 12/22/2019 12:00:00 AM EST active Omeprazo le 40 MG eCW1 ([facility]) Acetaminophen 325 MG / Oxycodone Hydroch loride 10 MG Oral Tablet [Percocet] Percocet 10-325 MG Percocet 10-325 MG 12/22/2019 12:00:00 AM EST 1.0 {tablet_as_needed} active Percocet 10-3 25 MG eCW1 ([facility]) Acetaminophen 325 MG / Oxycodone Hydroch loride 10 MG Oral Tablet [Percocet] Percocet 10-325 MG Percocet 10-325 MG 12/22/2019 12:00:00 AM EST 1.0 {tablet_as_needed} active Percocet 10-3 25 MG eCW1 ([facility]) Sucralfate 1000 MG Oral Tablet Sucralfate 1 GM Sucralfate 1 GM 12/22/2019 12:00:00 AM EST 1.0 {tablet_on_an_empty_stomach} active Sucralfate 1 GM eCW1 ([facility]) Omeprazole 40 MG Delayed Release Oral Capsule Omeprazole 40 MG 12/22/2019 12:00:00 AM EST active Omeprazo le 40 MG eCW1 ([facility]) 10-325 mg 12/22/2019 12:00:00 AM EST tablet 90 TAKE ONE TABLET BY MOUTH EVERY 6 HOURS MAXIMUM DAILY DOSE = 4 TABLETS TAKE ONE TABLET BY MOUTH EVERY 6 HOURS MAXIMUM DAILY DOSE = 4 TABLETS SOLD: 12/22/2019 [facility] Omeprazole 40 MG Delayed Release Oral Capsule Omeprazole 40 MG 12/22/2019 12:00:00 AM EST active Omeprazo le 40 MG eCW1 ([facility]) Acetaminophen 325 MG / Oxycodone Hydroch loride 10 MG Oral Tablet [Percocet] Percocet 10-325 MG Percocet 10-325 MG 12/22/2019 12:00:00 AM EST 1.0 {tablet_as_needed} active Percocet 10-3 25 MG eCW1 ([facility]) Omeprazole 40 MG Delayed Release Oral Capsule Omeprazole 40 MG 12/22/2019 12:00:00 AM EST active Omeprazo le 40 MG eCW1 ([facility]) Acetaminophen 325 MG / Oxycodone Hydroch loride 10 MG Oral Tablet [Percocet] Percocet 10-325 MG Percocet 10-325 MG 12/22/2019 12:00:00 AM EST 1.0 {tablet_as_needed} active Percocet 10-3 25 MG eCW1 ([facility]) Sucralfate 1000 MG Oral Tablet Sucralfate 1 GM Sucralfate 1 GM 12/22/2019 12:00:00 AM EST 1.0 {tablet_on_an_empty_stomach} active Sucralfate 1 GM eCW1 ([facility]) Acetaminophen 325 MG / Oxycodone Hydroch loride 10 MG Oral Tablet [Percocet] Percocet 10-325 MG Percocet 10-325 MG 12/22/2019 12:00:00 AM EST 1.0 {tablet_as_needed} active Percocet 10-3 25 MG eCW1 ([facility]) Omeprazole 40 MG Delayed Release Oral Capsule Omeprazole 40 MG 12/22/2019 12:00:00 AM EST active Omeprazo le 40 MG eCW1 ([facility]) Sucralfate 1000 MG Oral Tablet Sucralfate 1 GM Sucralfate 1 GM 12/22/2019 12:00:00 AM EST 1.0 {tablet_on_an_empty_stomach} active Sucralfate 1 GM eCW1 ([facility]) Sucralfate 1000 MG Oral Tablet Sucralfate 1 GM Sucralfate 1 GM 12/22/2019 12:00:00 AM EST 1.0 {tablet_on_an_empty_stomach} active Sucralfate 1 GM eCW1 ([facility]) Sucralfate 1000 MG Oral Tablet Sucralfate 1 GM Sucralfate 1 GM 12/22/2019 12:00:00 AM EST 1.0 {tablet_on_an_empty_stomach} active Sucralfate 1 GM eCW1 ([facility]) Amlodipine 5 MG / valsartan [...] {tablet_as_needed} active Percocet 10-3 25 MG eCW1 ([facility]) Acetaminophen 325 MG / Oxycodone Hydroch loride 10 MG Oral Tablet [Percocet] Percocet 10-325 MG Percocet 10-325 MG 11/24/2019 12:00:00 AM EDT 1.0 {tablet_as_needed} active Percocet 10-3 25 MG eCW1 ([facility]) Acetaminophen 325 MG / Oxycodone Hydroch loride 10 MG Oral Tablet [Percocet] Percocet 10-325 MG Percocet 10-325 MG 11/24/2019 12:00:00 AM EDT 1.0 {tablet_as_needed} active Percocet 10-3 25 MG eCW1 ([facility]) Acetaminophen 325 MG / Oxycodone Hydroch loride 10 MG Oral Tablet [Percocet] Percocet 10-325 MG Percocet 10-325 MG 11/24/2019 12:00:00 AM EDT 1.0 {tablet_as_needed} active Percocet 10-3 25 MG eCW1 ([facility]) Acetaminophen 325 MG / Oxycodone Hydroch loride 10 MG Oral Tablet [Percocet] Percocet 10-325 MG Percocet 10-325 MG 11/24/2019 12:00:00 AM EDT 1.0 {tablet_as_needed} active Percocet 10-3 25 MG eCW1 ([facility]) Acetaminophen 325 MG / Oxycodone Hydroch loride 10 MG Oral Tablet [Percocet] Percocet 10-325 MG Percocet 10-325 MG 11/24/2019 12:00:00 AM EDT 1.0 {tablet_as_needed} active Percocet 10-3 25 MG eCW1 ([facility]) Acetaminophen 325 MG / Oxycodone Hydroch loride 10 MG Oral Tablet [Percocet] Percocet 10-325 MG Percocet 10-325 MG 11/24/2019 12:00:00 AM EDT 1.0 {tablet_as_needed} active Percocet 10-3 25 MG eCW1 ([facility]) Acetaminophen 325 MG / Oxycodone Hydroch loride 10 MG Oral Tablet [Percocet] Percocet 10-325 MG Percocet 10-325 MG 11/24/2019 12:00:00 AM EDT 1.0 {tablet_as_needed} active Percocet 10-3 25 MG eCW1 ([facility]) Acetaminophen 325 MG / Oxycodone Hydroch loride 10 MG Oral Tablet [Percocet] Percocet 10-325 MG Percocet 10-325 MG 11/24/2019 12:00:00 AM EDT 1.0 {tablet_as_needed} active Percocet 10-3 25 MG eCW1 ([facility]) 10-325 mg 11/24/2019 12:00:00 AM [...] {tablet_as_needed} active Percocet 10-3 25 MG eCW1 ([facility]) Acetaminophen 325 MG / Oxycodone Hydroch loride 10 MG Oral Tablet [Percocet] Percocet 10-325 MG Percocet 10-325 MG 11/24/2019 12:00:00 AM EDT 1.0 {tablet_as_needed} active Percocet 10-3 25 MG eCW1 ([facility]) Acetaminophen 325 MG / Oxycodone Hydroch loride 10 MG Oral Tablet [Percocet] Percocet 10-325 MG Percocet 10-325 MG 11/24/2019 12:00:00 AM EDT 1.0 {tablet_as_needed} active Percocet 10-3 25 MG eCW1 ([facility]) Acetaminophen 325 MG / Oxycodone Hydroch loride 10 MG Oral Tablet [Percocet] Percocet 10-325 MG Percocet 10-325 MG 11/24/2019 12:00:00 AM EDT 1.0 {tablet_as_needed} active Percocet 10-3 25 MG eCW1 ([facility]) Acetaminophen 325 MG / Oxycodone Hydroch loride 10 MG Oral Tablet [Percocet] Percocet 10-325 MG Percocet 10-325 MG 11/24/2019 12:00:00 AM EDT 1.0 {tablet_as_needed} active Percocet 10-3 25 MG eCW1 ([facility]) Acetaminophen 325 MG / Oxycodone Hydroch loride 10 MG Oral Tablet [Percocet] Percocet 10-325 MG Percocet 10-325 MG 11/24/2019 12:00:00 AM EDT 1.0 {tablet_as_needed} active Percocet 10-3 25 MG eCW1 ([facility]) Acetaminophen 325 MG / Oxycodone Hydroch loride 10 MG Oral Tablet [Percocet] Percocet 10-325 MG Percocet 10-325 MG 11/24/2019 12:00:00 AM EDT 1.0 {tablet_as_needed} active Percocet 10-3 25 MG eCW1 ([facility]) Acetaminophen 325 MG / Oxycodone Hydroch loride 10 MG Oral Tablet [Percocet] Percocet 10-325 MG Percocet 10-325 MG 11/24/2019 12:00:00 AM EDT 1.0 {tablet_as_needed} active Percocet 10-3 25 MG eCW1 ([facility]) Acetaminophen 325 MG / Oxycodone Hydroch loride 10 MG Oral Tablet [Percocet] Percocet 10-325 MG Percocet 10-325 MG 11/24/2019 12:00:00 AM EDT 1.0 {tablet_as_needed} active Percocet 10-3 25 MG eCW1 ([facility]) atorvastatin 40 MG Oral Tablet [...] AM EDT active Diazepam 2 MG eCW1 ([facility]) Diazepam 2 MG Oral Tablet Diazepam 2 MG 11/10/2019 12:00:00 AM EDT 1.0 {tablet_as_needed} active Diazepam 2 MG eCW1 ([facility]) Diazepam 2 MG Oral Tablet Diazepam 2 MG 11/10/2019 12:00:00 AM EDT 1.0 {tablet_as_needed} active Diazepam 2 MG eCW1 ([facility]) Diazepam 2 MG Oral Tablet Diazepam 2 MG 11/10/2019 12:00:00 AM EDT active Diazepam 2 MG eCW1 ([facility]) Diazepam 2 MG Oral Tablet Diazepam 2 MG 11/10/2019 12:00:00 AM EDT active Diazepam 2 MG eCW1 ([facility]) Diazepam 2 MG Oral Tablet Diazepam 2 MG 11/10/2019 12:00:00 AM EDT active Diazepam 2 MG eCW1 ([facility]) Diazepam 2 MG Oral Tablet Diazepam 2 MG 11/10/2019 12:00:00 AM EDT active Diazepam 2 MG eCW1 ([facility]) Diazepam 2 MG Oral Tablet Diazepam 2 MG 11/10/2019 12:00:00 AM EDT active Diazepam 2 MG eCW1 ([facility]) Diazepam 2 MG Oral Tablet Diazepam 2 MG 11/10/2019 12:00:00 AM EDT active Diazepam 2 MG eCW1 ([facility]) Diazepam 2 MG Oral Tablet Diazepam 2 MG 11/10/2019 12:00:00 AM EDT 1.0 {tablet_as_needed} active Diazepam 2 MG eCW1 ([facility]) Diazepam 2 MG Oral Tablet Diazepam 2 MG 11/10/2019 12:00:00 AM EDT 1.0 {tablet_as_needed} active Diazepam 2 MG eCW1 ([facility]) Diazepam 2 MG Oral Tablet Diazepam 2 MG 11/10/2019 12:00:00 AM EDT active Diazepam 2 MG eCW1 ([facility]) Diazepam 2 MG Oral Tablet Diazepam 2 MG 11/10/2019 12:00:00 AM EDT 1.0 {tablet_as_needed} active Diazepam 2 MG eCW1 ([facility]) Diazepam 2 MG Oral Tablet Diazepam 2 MG 11/10/2019 12:00:00 AM EDT active Diazepam 2 MG eCW1 ([facility]) Diazepam 2 MG Oral Tablet Diazepam 2 MG 11/10/2019 12:00:00 AM EDT 1.0 {tablet_as_needed} active Diazepam 2 MG eCW1 ([facility]) Diazepam 2 MG Oral Tablet Diazepam 2 MG 11/10/2019 12:00:00 AM EDT active Diazepam 2 MG eCW1 ([facility]) Diazepam 2 MG Oral Tablet Diazepam 2 MG 11/10/2019 12:00:00 AM EDT active Diazepam 2 MG eCW1 ([facility]) Diazepam 2 MG Oral Tablet Diazepam 2 MG 11/10/2019 12:00:00 AM EDT active Diazepam 2 MG eCW1 ([facility]) Diazepam 2 MG Oral Tablet Diazepam 2 MG 11/10/2019 12:00:00 AM EDT 1.0 {tablet_as_needed} active Diazepam 2 MG eCW1 ([facility]) Diazepam 2 MG Oral Tablet Diazepam 2 MG 11/10/2019 12:00:00 AM EDT 1.0 {tablet_as_needed} active Diazepam 2 MG eCW1 ([facility]) Diazepam 2 MG Oral Tablet Diazepam 2 MG 11/10/2019 12:00:00 AM EDT 1.0 {tablet_as_needed} active Diazepam 2 MG eCW1 ([facility]) Diazepam 2 MG Oral Tablet Diazepam 2 MG 11/10/2019 12:00:00 AM EDT active Diazepam 2 MG eCW1 ([facility]) Diazepam 2 MG Oral Tablet Diazepam 2 MG 11/10/2019 12:00:00 AM EDT active Diazepam 2 MG eCW1 ([facility]) Diazepam 2 MG Oral Tablet Diazepam 2 MG 11/10/2019 12:00:00 AM EDT active Diazepam 2 MG eCW1 ([facility]) Diazepam 2 MG Oral Tablet Diazepam 2 MG 11/10/2019 12:00:00 AM EDT active Diazepam 2 MG eCW1 ([facility]) Diazepam 2 MG Oral Tablet Diazepam 2 MG 11/10/2019 12:00:00 AM EDT active Diazepam 2 MG eCW1 ([facility]) Diazepam 2 MG Oral Tablet Diazepam 2 MG 11/10/2019 12:00:00 AM EDT active Diazepam 2 MG eCW1 ([facility]) Diazepam 2 MG Oral Tablet Diazepam 2 MG 11/10/2019 12:00:00 AM EDT active Diazepam 2 MG eCW1 ([facility]) Diazepam 2 MG Oral Tablet Diazepam 2 MG 11/10/2019 12:00:00 AM EDT 1.0 {tablet_as_needed} active Diazepam 2 MG eCW1 ([facility]) Diazepam 2 MG Oral Tablet Diazepam 2 MG 11/10/2019 12:00:00 AM EDT active Diazepam 2 MG eCW1 ([facility]) Diazepam 2 MG Oral Tablet Diazepam 2 MG 11/10/2019 12:00:00 AM EDT active Diazepam 2 MG eCW1 ([facility]) Diazepam 2 MG Oral Tablet Diazepam 2 MG 11/10/2019 12:00:00 AM EDT active Diazepam 2 MG eCW1 ([facility]) Diazepam 2 MG Oral Tablet Diazepam 2 MG 11/10/2019 12:00:00 AM EDT active Diazepam 2 MG eCW1 ([facility]) Diazepam 2 MG Oral Tablet Diazepam 2 MG 11/10/2019 12:00:00 AM EDT active Diazepam 2 MG eCW1 ([facility]) Diazepam 2 MG Oral Tablet Diazepam 2 MG 11/10/2019 12:00:00 AM EDT 1.0 {tablet_as_needed} active Diazepam 2 MG eCW1 ([facility]) Diazepam 2 MG Oral Tablet Diazepam 2 MG 11/10/2019 12:00:00 AM EDT 1.0 {tablet_as_needed} active Diazepam 2 MG eCW1 ([facility]) Diazepam 2 MG Oral Tablet Diazepam 2 MG 11/10/2019 12:00:00 AM EDT active Diazepam 2 MG eCW1 ([facility]) Diazepam 2 MG Oral Tablet Diazepam 2 MG 11/10/2019 12:00:00 AM EDT active Diazepam 2 MG eCW1 ([facility]) Diazepam 2 MG Oral Tablet Diazepam 2 MG 11/10/2019 12:00:00 AM EDT active Diazepam 2 MG eCW1 ([facility]) Diazepam 2 MG Oral Tablet Diazepam 2 MG 11/10/2019 12:00:00 AM EDT 1.0 {tablet_as_needed} active Diazepam 2 MG eCW1 ([facility]) Diazepam 2 MG Oral Tablet Diazepam 2 MG 11/10/2019 12:00:00 AM EDT 1.0 {tablet_as_needed} active Diazepam 2 MG eCW1 ([facility]) Diazepam 2 MG Oral Tablet Diazepam 2 MG 11/10/2019 12:00:00 AM EDT active Diazepam 2 MG eCW1 ([facility]) Diazepam 2 MG Oral Tablet Diazepam 2 MG 11/10/2019 12:00:00 AM EDT 1.0 {tablet_as_needed} active Diazepam 2 MG eCW1 ([facility]) Diazepam 2 MG Oral Tablet Diazepam 2 MG 11/10/2019 12:00:00 AM EDT 1.0 {tablet_as_needed} active Diazepam 2 MG eCW1 ([facility]) Diazepam 2 MG Oral Tablet Diazepam 2 MG 11/10/2019 12:00:00 AM EDT 1.0 {tablet_as_needed} active Diazepam 2 MG eCW1 ([facility]) Diazepam 2 MG Oral Tablet Diazepam 2 MG 11/10/2019 12:00:00 AM EDT 1.0 {tablet_as_needed} active Diazepam 2 MG eCW1 ([facility]) Diazepam 2 MG Oral Tablet Diazepam 2 MG 11/10/2019 12:00:00 AM EDT active Diazepam 2 MG eCW1 ([facility]) Diazepam 2 MG Oral Tablet Diazepam 2 MG 11/10/2019 12:00:00 AM EDT active Diazepam 2 MG eCW1 ([facility]) Diazepam 2 MG Oral Tablet Diazepam 2 MG 11/10/2019 12:00:00 AM EDT 1.0 {tablet_as_needed} active Diazepam 2 MG eCW1 ([facility]) Diazepam 2 MG Oral Tablet Diazepam 2 MG 11/10/2019 12:00:00 AM EDT 1.0 {tablet_as_needed} active Diazepam 2 MG eCW1 ([facility]) Diazepam 2 MG Oral Tablet Diazepam 2 MG 11/10/2019 12:00:00 AM EDT active Diazepam 2 MG eCW1 ([facility]) Diazepam 2 MG Oral Tablet Diazepam 2 MG 11/10/2019 12:00:00 AM EDT 1.0 {tablet_as_needed} active Diazepam 2 MG eCW1 ([facility]) Diazepam 2 MG Oral Tablet Diazepam 2 MG 11/10/2019 12:00:00 AM EDT active Diazepam 2 MG eCW1 ([facility]) Diazepam 2 MG Oral Tablet Diazepam 2 MG 11/10/2019 12:00:00 AM EDT active Diazepam 2 MG eCW1 ([facility]) Diazepam 2 MG Oral Tablet Diazepam 2 MG 11/10/2019 12:00:00 AM EDT active Diazepam 2 MG eCW1 ([facility]) Diazepam 2 MG Oral Tablet Diazepam 2 MG 11/10/2019 12:00:00 AM EDT active Diazepam 2 MG eCW1 ([facility]) Diazepam 2 MG Oral Tablet Diazepam 2 MG 11/10/2019 12:00:00 AM EDT active Diazepam 2 MG eCW1 ([facility]) Diazepam 2 MG Oral Tablet Diazepam 2 MG 11/10/2019 12:00:00 AM EDT active Diazepam 2 MG eCW1 ([facility]) Diazepam 2 MG Oral Tablet Diazepam 2 MG 11/10/2019 12:00:00 AM EDT 1.0 {tablet_as_needed} active Diazepam 2 MG eCW1 ([facility]) Diazepam 2 MG Oral Tablet Diazepam 2 MG 11/10/2019 12:00:00 AM EDT active Diazepam 2 MG eCW1 ([facility]) Diazepam 2 MG Oral Tablet Diazepam 2 MG 11/10/2019 12:00:00 AM EDT active Diazepam 2 MG eCW1 ([facility]) Diazepam 2 MG Oral Tablet Diazepam 2 MG 11/10/2019 12:00:00 AM EDT 1.0 {tablet_as_needed} active Diazepam 2 MG eCW1 ([facility]) Diazepam 2 MG Oral Tablet Diazepam 2 MG 11/10/2019 12:00:00 AM EDT active Diazepam 2 MG eCW1 ([facility]) Diazepam 2 MG Oral Tablet Diazepam 2 MG 11/10/2019 12:00:00 AM EDT 1.0 {tablet_as_needed} active Diazepam 2 MG eCW1 ([facility]) Diazepam 2 MG Oral Tablet Diazepam 2 MG 11/10/2019 12:00:00 AM EDT 1.0 {tablet_as_needed} active Diazepam 2 MG eCW1 ([facility]) Diazepam 2 MG Oral Tablet Diazepam 2 MG 11/10/2019 12:00:00 AM EDT 1.0 {tablet_as_needed} active Diazepam 2 MG eCW1 ([facility]) Diazepam 2 MG Oral Tablet Diazepam 2 MG 11/10/2019 12:00:00 AM EDT 1.0 {tablet_as_needed} active Diazepam 2 MG eCW1 ([facility]) Diazepam 2 MG Oral Tablet Diazepam 2 MG 11/10/2019 12:00:00 AM EDT active Diazepam 2 MG eCW1 ([facility]) Diazepam 2 MG Oral Tablet Diazepam 2 MG 11/10/2019 12:00:00 AM EDT 1.0 {tablet_as_needed} active Diazepam 2 MG eCW1 ([facility]) Diazepam 2 MG Oral Tablet Diazepam 2 MG 11/10/2019 12:00:00 AM EDT active Diazepam 2 MG eCW1 ([facility]) Diazepam 2 MG Oral Tablet Diazepam 2 MG 11/10/2019 12:00:00 AM EDT 1.0 {tablet_as_needed} active Diazepam 2 MG eCW1 ([facility]) Diazepam 2 MG Oral Tablet Diazepam 2 MG 11/10/2019 12:00:00 AM EDT active Diazepam 2 MG eCW1 ([facility]) Diazepam 2 MG Oral Tablet Diazepam 2 MG 11/10/2019 12:00:00 AM EDT active Diazepam 2 MG eCW1 ([facility]) Diazepam 2 MG Oral Tablet Diazepam 2 MG 11/10/2019 12:00:00 AM EDT active Diazepam 2 MG eCW1 ([facility]) Diazepam 2 MG Oral Tablet Diazepam 2 MG 11/10/2019 12:00:00 AM EDT active Diazepam 2 MG eCW1 ([facility]) Diazepam 2 MG Oral Tablet Diazepam 2 MG 11/10/2019 12:00:00 AM EDT active Diazepam 2 MG eCW1 ([facility]) Diazepam 2 MG Oral Tablet Diazepam 2 MG 11/10/2019 12:00:00 AM EDT active Diazepam 2 MG eCW1 ([facility]) Diazepam 2 MG Oral Tablet Diazepam 2 MG 11/10/2019 12:00:00 AM EDT active Diazepam 2 MG eCW1 ([facility]) Diazepam 2 MG Oral Tablet Diazepam 2 MG 11/10/2019 12:00:00 AM EDT active Diazepam 2 MG eCW1 ([facility]) Diazepam 2 MG Oral Tablet Diazepam 2 MG 11/10/2019 12:00:00 AM EDT active Diazepam 2 MG eCW1 ([facility]) 15 mg 11/04/2019 12:00:00 AM [...] Primidone 09/22/2019 12:00:00 AM EDT active MEDENT ([facility], ) 250 mg 09/22/2019 12:00:00 AM EDT tablet 30 TAKE 1/2 TABLET BY MOUTH TWO TIMES A DAY TAKE 1/2 TABLET BY MOUTH TWO TIMES A DAY SOLD: 09/24/2019 NPS 10-325 mg 09/14/2019 12:00:00 AM EDT tablet 120 TAKE ONE TABLET BY MOUTH EVERY 6 HOURS NEEDED FOR PAIN MAXIMUM DAILY DOSE = 4 TAKE ONE TABLET BY MOUTH EVERY 6 HOURS NEEDED FOR PAIN MAXIMUM DAILY DOSE = 4 SOLD: 09/14/2019 NPS 28 ACTUAT tiotropium 0.0025 MG/ACTUAT Me tered Dose Inhaler [Spiriva] Spiriva Respimat 2.5 MCG/ACT Spiriva Respimat 2.5 MCG/ACT 09/04/2019 12:00:00 AM EDT 2.0 {puffs} suspended Spiriva Respimat 2 .5 MCG/ACT eCW1 ([facility]) 28 ACTUAT tiotropium 0.0025 MG/ACTUAT Me tered Dose Inhaler [Spiriva] Spiriva Respimat 2.5 MCG/ACT Spiriva Respimat 2.5 MCG/ACT 09/04/2019 12:00:00 AM EDT 2.0 {puffs} suspended Spiriva Respimat 2 .5 MCG/ACT eCW1 ([facility]) 28 ACTUAT tiotropium 0.0025 MG/ACTUAT Me tered Dose Inhaler [Spiriva] Spiriva Respimat 2.5 MCG/ACT Spiriva Respimat 2.5 MCG/ACT 09/04/2019 12:00:00 AM EDT 2.0 {puffs} active Spiriva Respimat 2.5 MCG/ACT eCW1 ([facility]) 28 ACTUAT tiotropium 0.0025 MG/ACTUAT Me tered Dose Inhaler [Spiriva] Spiriva Respimat 2.5 MCG/ACT Spiriva Respimat 2.5 MCG/ACT 09/04/2019 12:00:00 AM EDT 2.0 {puffs} suspended Spiriva Respimat 2 .5 MCG/ACT eCW1 ([facility]) 15 mg 09/04/2019 12:00:00 AM EDT tablet extended release 90 TAKE ONE TABLET BY MOUTH EVERY MORNING AND TWO TABLETS AT BEDTIME MAXIMUM DAILY DOSE = THREE TABLETS TAKE ONE TABLET BY MOUTH EVERY MORNING A ND TWO TABLETS AT BEDTIME MAXIMUM DAILY DOSE = THREE TABLETS SOLD: 09/04/2019 NPS 28 ACTUAT tiotropium 0.0025 MG/ACTUAT Me tered Dose Inhaler [Spiriva] Spiriva Respimat 2.5 MCG/ACT Spiriva Respimat 2.5 MCG/ACT 09/04/2019 12:00:00 AM EDT 2.0 {puffs} active Spiriva Respimat 2.5 MCG/ACT eCW1 ([facility]) 28 ACTUAT tiotropium 0.0025 MG/ACTUAT Me tered Dose Inhaler [Spiriva] Spiriva Respimat 2.5 MCG/ACT Spiriva Respimat 2.5 MCG/ACT 09/04/2019 12:00:00 AM EDT 2.0 {puffs} active Spiriva Respimat 2.5 MCG/ACT eCW1 ([facility]) 28 ACTUAT tiotropium 0.0025 MG/ACTUAT Me tered Dose Inhaler [Spiriva] Spiriva Respimat 2.5 MCG/ACT Spiriva Respimat 2.5 MCG/ACT 09/04/2019 12:00:00 AM EDT 2.0 {puffs} suspended Spiriva Respimat 2 .5 MCG/ACT eCW1 ([facility]) 28 ACTUAT tiotropium 0.0025 MG/ACTUAT Me tered Dose Inhaler [Spiriva] Spiriva Respimat 2.5 MCG/ACT Spiriva Respimat 2.5 MCG/ACT 09/04/2019 12:00:00 AM EDT 2.0 {puffs} active Spiriva Respimat 2.5 MCG/ACT eCW1 ([facility]) 28 ACTUAT tiotropium 0.0025 MG/ACTUAT Me tered Dose Inhaler [Spiriva] Spiriva Respimat 2.5 MCG/ACT Spiriva Respimat 2.5 MCG/ACT 09/04/2019 12:00:00 AM EDT 2.0 {puffs} suspended Spiriva Respimat 2 .5 MCG/ACT eCW1 ([facility]) 28 ACTUAT tiotropium 0.0025 MG/ACTUAT Me tered Dose Inhaler [Spiriva] Spiriva Respimat 2.5 MCG/ACT Spiriva Respimat 2.5 MCG/ACT 09/04/2019 12:00:00 AM EDT 2.0 {puffs} active Spiriva Respimat 2.5 MCG/ACT eCW1 ([facility]) 28 ACTUAT tiotropium 0.0025 MG/ACTUAT Me tered Dose Inhaler [Spiriva] Spiriva Respimat 2.5 MCG/ACT Spiriva Respimat 2.5 MCG/ACT 09/04/2019 12:00:00 AM EDT 2.0 {puffs} suspended Spiriva Respimat 2 .5 MCG/ACT eCW1 ([facility]) 28 ACTUAT tiotropium 0.0025 MG/ACTUAT Me tered Dose Inhaler [Spiriva] Spiriva Respimat 2.5 MCG/ACT Spiriva Respimat 2.5 MCG/ACT 09/04/2019 12:00:00 AM EDT 2.0 {puffs} active Spiriva Respimat 2.5 MCG/ACT eCW1 ([facility]) 28 ACTUAT tiotropium 0.0025 MG/ACTUAT Me tered Dose Inhaler [Spiriva] Spiriva Respimat 2.5 MCG/ACT Spiriva Respimat 2.5 MCG/ACT 09/04/2019 12:00:00 AM EDT 2.0 {puffs} active Spiriva Respimat 2.5 MCG/ACT eCW1 ([facility]) 28 ACTUAT tiotropium 0.0025 MG/ACTUAT Me tered Dose Inhaler [Spiriva] Spiriva Respimat 2.5 MCG/ACT Spiriva Respimat 2.5 MCG/ACT 09/04/2019 12:00:00 AM EDT 2.0 {puffs} suspended Spiriva Respimat 2 .5 MCG/ACT eCW1 ([facility]) 28 ACTUAT tiotropium 0.0025 MG/ACTUAT Me tered Dose Inhaler [Spiriva] Spiriva Respimat 2.5 MCG/ACT Spiriva Respimat 2.5 MCG/ACT 09/04/2019 12:00:00 AM EDT 2.0 {puffs} active Spiriva Respimat 2.5 MCG/ACT eCW1 ([facility]) 28 ACTUAT tiotropium 0.0025 MG/ACTUAT Me tered Dose Inhaler [Spiriva] Spiriva Respimat 2.5 MCG/ACT Spiriva Respimat 2.5 MCG/ACT 09/04/2019 12:00:00 AM EDT 2.0 {puffs} suspended Spiriva Respimat 2 .5 MCG/ACT eCW1 ([facility]) 28 ACTUAT tiotropium 0.0025 MG/ACTUAT Me tered Dose Inhaler [Spiriva] Spiriva Respimat 2.5 MCG/ACT Spiriva Respimat 2.5 MCG/ACT 09/04/2019 12:00:00 AM EDT 2.0 {puffs} active Spiriva Respimat 2.5 MCG/ACT eCW1 ([facility]) 28 ACTUAT tiotropium 0.0025 MG/ACTUAT Me tered Dose Inhaler [Spiriva] Spiriva Respimat 2.5 MCG/ACT Spiriva Respimat 2.5 MCG/ACT 09/04/2019 12:00:00 AM EDT 2.0 {puffs} suspended Spiriva Respimat 2 .5 MCG/ACT eCW1 ([facility]) 28 ACTUAT tiotropium 0.0025 MG/ACTUAT Me tered Dose Inhaler [Spiriva] Spiriva Respimat 2.5 MCG/ACT Spiriva Respimat 2.5 MCG/ACT 09/04/2019 12:00:00 AM EDT 2.0 {puffs} active Spiriva Respimat 2.5 MCG/ACT eCW1 ([facility]) 28 ACTUAT tiotropium 0.0025 MG/ACTUAT Me tered Dose Inhaler [Spiriva] Spiriva Respimat 2.5 MCG/ACT Spiriva Respimat 2.5 MCG/ACT 09/04/2019 12:00:00 AM EDT 2.0 {puffs} active Spiriva Respimat 2.5 MCG/ACT eCW1 ([facility]) 28 ACTUAT tiotropium 0.0025 MG/ACTUAT Me tered Dose Inhaler [Spiriva] Spiriva Respimat 2.5 MCG/ACT Spiriva Respimat 2.5 MCG/ACT 09/04/2019 12:00:00 AM EDT 2.0 {puffs} active Spiriva Respimat 2.5 MCG/ACT eCW1 ([facility]) 28 ACTUAT tiotropium 0.0025 MG/ACTUAT Me tered Dose Inhaler [Spiriva] Spiriva Respimat 2.5 MCG/ACT Spiriva Respimat 2.5 MCG/ACT 09/04/2019 12:00:00 AM EDT 2.0 {puffs} suspended Spiriva Respimat 2 .5 MCG/ACT eCW1 ([facility]) 28 ACTUAT tiotropium 0.0025 MG/ACTUAT Me tered Dose Inhaler [Spiriva] Spiriva Respimat 2.5 MCG/ACT Spiriva Respimat 2.5 MCG/ACT 09/04/2019 12:00:00 AM EDT 2.0 {puffs} active Spiriva Respimat 2.5 MCG/ACT eCW1 ([facility]) 28 ACTUAT tiotropium 0.0025 MG/ACTUAT Me tered Dose Inhaler [Spiriva] Spiriva Respimat 2.5 MCG/ACT Spiriva Respimat 2.5 MCG/ACT 09/04/2019 12:00:00 AM EDT 2.0 {puffs} active Spiriva Respimat 2.5 MCG/ACT eCW1 ([facility]) 28 ACTUAT tiotropium 0.0025 MG/ACTUAT Me tered Dose Inhaler [Spiriva] Spiriva Respimat 2.5 MCG/ACT Spiriva Respimat 2.5 MCG/ACT 09/04/2019 12:00:00 AM EDT 2.0 {puffs} suspended Spiriva Respimat 2 .5 MCG/ACT eCW1 ([facility]) 28 ACTUAT tiotropium 0.0025 MG/ACTUAT Me tered Dose Inhaler [Spiriva] Spiriva Respimat 2.5 MCG/ACT Spiriva Respimat 2.5 MCG/ACT 09/04/2019 12:00:00 AM EDT 2.0 {puffs} suspended Spiriva Respimat 2 .5 MCG/ACT eCW1 ([facility]) 28 ACTUAT tiotropium 0.0025 MG/ACTUAT Me tered Dose Inhaler [Spiriva] Spiriva Respimat 2.5 MCG/ACT Spiriva Respimat 2.5 MCG/ACT 09/04/2019 12:00:00 AM EDT 2.0 {puffs} active Spiriva Respimat 2.5 MCG/ACT eCW1 ([facility]) 28 ACTUAT tiotropium 0.0025 MG/ACTUAT Me tered Dose Inhaler [Spiriva] Spiriva Respimat 2.5 MCG/ACT Spiriva Respimat 2.5 MCG/ACT 09/04/2019 12:00:00 AM EDT 2.0 {puffs} suspended Spiriva Respimat 2 .5 MCG/ACT eCW1 ([facility]) 28 ACTUAT tiotropium 0.0025 MG/ACTUAT Me tered Dose Inhaler [Spiriva] Spiriva Respimat 2.5 MCG/ACT Spiriva Respimat 2.5 MCG/ACT 09/04/2019 12:00:00 AM EDT 2.0 {puffs} active Spiriva Respimat 2.5 MCG/ACT eCW1 ([facility]) 28 ACTUAT tiotropium 0.0025 MG/ACTUAT Me tered Dose Inhaler [Spiriva] Spiriva Respimat 2.5 MCG/ACT Spiriva Respimat 2.5 MCG/ACT 09/04/2019 12:00:00 AM EDT 2.0 {puffs} suspended Spiriva Respimat 2 .5 MCG/ACT eCW1 ([facility]) 28 ACTUAT tiotropium 0.0025 MG/ACTUAT Me tered Dose Inhaler [Spiriva] Spiriva Respimat 2.5 MCG/ACT Spiriva Respimat 2.5 MCG/ACT 09/04/2019 12:00:00 AM EDT 2.0 {puffs} suspended Spiriva Respimat 2 .5 MCG/ACT eCW1 ([facility]) 28 ACTUAT tiotropium 0.0025 MG/ACTUAT Me tered Dose Inhaler [Spiriva] Spiriva Respimat 2.5 MCG/ACT Spiriva Respimat 2.5 MCG/ACT 09/04/2019 12:00:00 AM EDT 2.0 {puffs} active Spiriva Respimat 2.5 MCG/ACT eCW1 ([facility]) 28 ACTUAT tiotropium 0.0025 MG/ACTUAT Me tered Dose Inhaler [Spiriva] Spiriva Respimat 2.5 MCG/ACT Spiriva Respimat 2.5 MCG/ACT 09/04/2019 12:00:00 AM EDT 2.0 {puffs} active Spiriva Respimat 2.5 MCG/ACT eCW1 ([facility]) 28 ACTUAT tiotropium 0.0025 MG/ACTUAT Me tered Dose Inhaler [Spiriva] Spiriva Respimat 2.5 MCG/ACT Spiriva Respimat 2.5 MCG/ACT 09/04/2019 12:00:00 AM EDT 2.0 {puffs} suspended Spiriva Respimat 2 .5 MCG/ACT eCW1 ([facility]) 28 ACTUAT tiotropium 0.0025 MG/ACTUAT Me tered Dose Inhaler [Spiriva] Spiriva Respimat 2.5 MCG/ACT Spiriva Respimat 2.5 MCG/ACT 09/04/2019 12:00:00 AM EDT 2.0 {puffs} active Spiriva Respimat 2.5 MCG/ACT eCW1 ([facility]) 28 ACTUAT tiotropium 0.0025 MG/ACTUAT Me tered Dose Inhaler [Spiriva] Spiriva Respimat 2.5 MCG/ACT Spiriva Respimat 2.5 MCG/ACT 09/04/2019 12:00:00 AM EDT 2.0 {puffs} suspended Spiriva Respimat 2 .5 MCG/ACT eCW1 ([facility]) 28 ACTUAT tiotropium 0.0025 MG/ACTUAT Me tered Dose Inhaler [Spiriva] Spiriva Respimat 2.5 MCG/ACT Spiriva Respimat 2.5 MCG/ACT 09/04/2019 12:00:00 AM EDT 2.0 {puffs} active Spiriva Respimat 2.5 MCG/ACT eCW1 ([facility]) 28 ACTUAT tiotropium 0.0025 MG/ACTUAT Me tered Dose Inhaler [Spiriva] Spiriva Respimat 2.5 MCG/ACT Spiriva Respimat 2.5 MCG/ACT 09/04/2019 12:00:00 AM EDT 2.0 {puffs} active Spiriva Respimat 2.5 MCG/ACT eCW1 ([facility]) 28 ACTUAT tiotropium 0.0025 MG/ACTUAT Me tered Dose Inhaler [Spiriva] Spiriva Respimat 2.5 MCG/ACT Spiriva Respimat 2.5 MCG/ACT 09/04/2019 12:00:00 AM EDT 2.0 {puffs} active Spiriva Respimat 2.5 MCG/ACT eCW1 ([facility]) 28 ACTUAT tiotropium 0.0025 MG/ACTUAT Me tered Dose Inhaler [Spiriva] Spiriva Respimat 2.5 MCG/ACT Spiriva Respimat 2.5 MCG/ACT 09/04/2019 12:00:00 AM EDT 2.0 {puffs} active Spiriva Respimat 2.5 MCG/ACT eCW1 ([facility]) 28 ACTUAT tiotropium 0.0025 MG/ACTUAT Me tered Dose Inhaler [Spiriva] Spiriva Respimat 2.5 MCG/ACT Spiriva Respimat 2.5 MCG/ACT 09/04/2019 12:00:00 AM EDT 2.0 {puffs} active Spiriva Respimat 2.5 MCG/ACT eCW1 ([facility]) 28 ACTUAT tiotropium 0.0025 MG/ACTUAT Me tered Dose Inhaler [Spiriva] Spiriva Respimat 2.5 MCG/ACT Spiriva Respimat 2.5 MCG/ACT 09/04/2019 12:00:00 AM EDT 2.0 {puffs} suspended Spiriva Respimat 2 .5 MCG/ACT eCW1 ([facility]) 28 ACTUAT tiotropium 0.0025 MG/ACTUAT Me tered Dose Inhaler [Spiriva] Spiriva Respimat 2.5 MCG/ACT Spiriva Respimat 2.5 MCG/ACT 09/04/2019 12:00:00 AM EDT 2.0 {puffs} active Spiriva Respimat 2.5 MCG/ACT eCW1 ([facility]) 28 ACTUAT tiotropium 0.0025 MG/ACTUAT Me tered Dose Inhaler [Spiriva] Spiriva Respimat 2.5 MCG/ACT Spiriva Respimat 2.5 MCG/ACT 09/04/2019 12:00:00 AM EDT 2.0 {puffs} suspended Spiriva Respimat 2 .5 MCG/ACT eCW1 ([facility]) 28 ACTUAT tiotropium 0.0025 MG/ACTUAT Me tered Dose Inhaler [Spiriva] Spiriva Respimat 2.5 MCG/ACT Spiriva Respimat 2.5 MCG/ACT 09/04/2019 12:00:00 AM EDT 2.0 {puffs} active Spiriva Respimat 2.5 MCG/ACT eCW1 ([facility]) 28 ACTUAT tiotropium 0.0025 MG/ACTUAT Me tered Dose Inhaler [Spiriva] Spiriva Respimat 2.5 MCG/ACT Spiriva Respimat 2.5 MCG/ACT 09/04/2019 12:00:00 AM EDT 2.0 {puffs} active Spiriva Respimat 2.5 MCG/ACT eCW1 ([facility]) 28 ACTUAT tiotropium 0.0025 MG/ACTUAT Me tered Dose Inhaler [Spiriva] Spiriva Respimat 2.5 MCG/ACT Spiriva Respimat 2.5 MCG/ACT 09/04/2019 12:00:00 AM EDT 2.0 {puffs} active Spiriva Respimat 2.5 MCG/ACT eCW1 ([facility]) 28 ACTUAT tiotropium 0.0025 MG/ACTUAT Me tered Dose Inhaler [Spiriva] Spiriva Respimat 2.5 MCG/ACT Spiriva Respimat 2.5 MCG/ACT 09/04/2019 12:00:00 AM EDT 2.0 {puffs} suspended Spiriva Respimat 2 .5 MCG/ACT eCW1 ([facility]) 28 ACTUAT tiotropium 0.0025 MG/ACTUAT Me tered Dose Inhaler [Spiriva] Spiriva Respimat 2.5 MCG/ACT Spiriva Respimat 2.5 MCG/ACT 09/04/2019 12:00:00 AM EDT 2.0 {puffs} suspended Spiriva Respimat 2 .5 MCG/ACT eCW1 ([facility]) 28 ACTUAT tiotropium 0.0025 MG/ACTUAT Me tered Dose Inhaler [Spiriva] Spiriva Respimat 2.5 MCG/ACT Spiriva Respimat 2.5 MCG/ACT 09/04/2019 12:00:00 AM EDT 2.0 {puffs} active Spiriva Respimat 2.5 MCG/ACT eCW1 ([facility]) 28 ACTUAT tiotropium 0.0025 MG/ACTUAT Me tered Dose Inhaler [Spiriva] Spiriva Respimat 2.5 MCG/ACT Spiriva Respimat 2.5 MCG/ACT 09/04/2019 12:00:00 AM EDT 2.0 {puffs} active Spiriva Respimat 2.5 MCG/ACT eCW1 ([facility]) 28 ACTUAT tiotropium 0.0025 MG/ACTUAT Me tered Dose Inhaler [Spiriva] Spiriva Respimat 2.5 MCG/ACT Spiriva Respimat 2.5 MCG/ACT 09/04/2019 12:00:00 AM EDT 2.0 {puffs} active Spiriva Respimat 2.5 MCG/ACT eCW1 ([facility]) 28 ACTUAT tiotropium 0.0025 MG/ACTUAT Me tered Dose Inhaler [Spiriva] Spiriva Respimat 2.5 MCG/ACT Spiriva Respimat 2.5 MCG/ACT 09/04/2019 12:00:00 AM EDT 2.0 {puffs} active Spiriva Respimat 2.5 MCG/ACT eCW1 ([facility]) 28 ACTUAT tiotropium 0.0025 MG/ACTUAT Me tered Dose Inhaler [Spiriva] Spiriva Respimat 2.5 MCG/ACT Spiriva Respimat 2.5 MCG/ACT 09/04/2019 12:00:00 AM EDT 2.0 {puffs} active Spiriva Respimat 2.5 MCG/ACT eCW1 ([facility]) 28 ACTUAT tiotropium 0.0025 MG/ACTUAT Me tered Dose Inhaler [Spiriva] Spiriva Respimat 2.5 MCG/ACT Spiriva Respimat 2.5 MCG/ACT 09/04/2019 12:00:00 AM EDT 2.0 {puffs} suspended Spiriva Respimat 2 .5 MCG/ACT eCW1 ([facility]) Morphine Sulfate 15 MG Extended Release Oral Tablet Mo rphine Sulfate ER 15 MG Morphine Sulfate ER 15 MG 09/03/2019 12:00:00 AM EDT active Morphine Sulfate ER 15 MG eCW1 ([facility]) Morphine Sulfate 15 MG Extended Release Oral Tablet Mo rphine Sulfate ER 15 MG Morphine Sulfate ER 15 MG 09/03/2019 12:00:00 AM EDT active Morphine Sulfate ER 15 MG eCW1 ([facility]) Morphine Sulfate 15 MG Extended Release Oral Tablet Mo rphine Sulfate ER 15 MG Morphine Sulfate ER 15 MG 09/03/2019 12:00:00 AM EDT active Morphine Sulfate ER 15 MG eCW1 ([facility]) Morphine Sulfate 15 MG Extended Release Oral Tablet Mo rphine Sulfate ER 15 MG Morphine Sulfate ER 15 MG 09/03/2019 12:00:00 AM EDT active Morphine Sulfate ER 15 MG eCW1 ([facility]) Morphine Sulfate 15 MG Extended Release Oral Tablet Mo rphine Sulfate ER 15 MG Morphine Sulfate ER 15 MG 09/03/2019 12:00:00 AM EDT active Morphine Sulfate ER 15 MG eCW1 ([facility]) Morphine Sulfate 15 MG Extended Release Oral Tablet Mo rphine Sulfate ER 15 MG Morphine Sulfate ER 15 MG 09/03/2019 12:00:00 AM EDT active Morphine Sulfate ER 15 MG eCW1 ([facility]) Morphine Sulfate 15 MG Extended Release Oral Tablet Mo rphine Sulfate ER 15 MG Morphine Sulfate ER 15 MG 09/03/2019 12:00:00 AM EDT active Morphine Sulfate ER 15 MG eCW1 ([facility]) Morphine Sulfate 15 MG Extended Release Oral Tablet Mo rphine Sulfate ER 15 MG Morphine Sulfate ER 15 MG 09/03/2019 12:00:00 AM EDT active Morphine Sulfate ER 15 MG eCW1 ([facility]) Morphine Sulfate 15 MG Extended Release Oral Tablet Mo rphine Sulfate ER 15 MG Morphine Sulfate ER 15 MG 09/03/2019 12:00:00 AM EDT active Morphine Sulfate ER 15 MG eCW1 ([facility]) Morphine Sulfate 15 MG Extended Release Oral Tablet Mo rphine Sulfate ER 15 MG Morphine Sulfate ER 15 MG 09/03/2019 12:00:00 AM EDT active Morphine Sulfate ER 15 MG eCW1 ([facility]) 50 mg 08/27/2019 12:00:00 AM [...] Primidone 08/26/2019 12:00:00 AM EDT completed MEDENT ([facility], ) 200 ACTUAT Albuterol 0.09 MG/ACTUAT Mete red Dose Inhaler [Ventolin] Ventolin HFA 108 (90 Base) MCG/ACT Ventolin HFA 108 (90 Base) MCG/ACT 08/25/2019 12:00:00 AM EDT 1.0 {puff_as_needed} suspended Ventolin HFA 108 (90 Base) MCG/ACT eCW1 ([facility]) tiotropium 0.018 MG/ACTUAT Inhalant Powder [Spiriva] S piriva HandiHaler 18 MCG Spiriva HandiHaler 18 MCG 08/25/2019 12:00:00 AM EDT active Spiriva HandiHaler 18 MCG eCW1 ([facility]) 200 ACTUAT Albuterol 0.09 MG/ACTUAT Mete red Dose Inhaler [Ventolin] Ventolin HFA 108 (90 Base) MCG/ACT Ventolin HFA 108 (90 Base) MCG/ACT 08/25/2019 12:00:00 AM EDT 1.0 {puff_as_needed} suspended Ventolin HFA 108 (90 Base) MCG/ACT eCW1 ([facility]) 200 ACTUAT Albuterol 0.09 MG/ACTUAT Mete red Dose Inhaler [Ventolin] Ventolin HFA 108 (90 Base) MCG/ACT Ventolin HFA 108 (90 Base) MCG/ACT 08/25/2019 12:00:00 AM EDT 1.0 {puff_as_needed} suspended Ventolin HFA 108 (90 Base) MCG/ACT eCW1 ([facility]) 200 ACTUAT Albuterol 0.09 MG/ACTUAT Mete red Dose Inhaler [Ventolin] Ventolin HFA 108 (90 Base) MCG/ACT Ventolin HFA 108 (90 Base) MCG/ACT 08/25/2019 12:00:00 AM EDT 1.0 {puff_as_needed} suspended Ventolin HFA 108 (90 Base) MCG/ACT eCW1 ([facility]) tiotropium 0.018 MG/ACTUAT Inhalant Powder [Spiriva] S piriva HandiHaler 18 MCG Spiriva HandiHaler 18 MCG 08/25/2019 12:00:00 AM EDT active Spiriva HandiHaler 18 MCG eCW1 ([facility]) 200 ACTUAT Albuterol 0.09 MG/ACTUAT Mete red Dose Inhaler [Ventolin] Ventolin HFA 108 (90 Base) MCG/ACT Ventolin HFA 108 (90 Base) MCG/ACT 08/25/2019 12:00:00 AM EDT 1.0 {puff_as_needed} active Jovani tolin HFA 108 (90 Base) MCG/ACT eCW1 ([facility]) tiotropium 0.018 MG/ACTUAT Inhalant Powder [Spiriva] S piriva HandiHaler 18 MCG Spiriva HandiHaler 18 MCG 08/25/2019 12:00:00 AM EDT active Spiriva HandiHaler 18 MCG eCW1 ([facility]) 200 ACTUAT Albuterol 0.09 MG/ACTUAT Mete red Dose Inhaler [Ventolin] Ventolin HFA 108 (90 Base) MCG/ACT Ventolin HFA 108 (90 Base) MCG/ACT 08/25/2019 12:00:00 AM EDT 1.0 {puff_as_needed} suspended Ventolin HFA 108 (90 Base) MCG/ACT eCW1 ([facility]) 200 ACTUAT Albuterol 0.09 MG/ACTUAT Mete red Dose Inhaler [Ventolin] Ventolin HFA 108 (90 Base) MCG/ACT Ventolin HFA 108 (90 Base) MCG/ACT 08/25/2019 12:00:00 AM EDT 1.0 {puff_as_needed} active Jovani tolin HFA 108 (90 Base) MCG/ACT eCW1 ([facility]) tiotropium 0.018 MG/ACTUAT Inhalant Powder [Spiriva] S piriva HandiHaler 18 MCG Spiriva HandiHaler 18 MCG 08/25/2019 12:00:00 AM EDT active Spiriva HandiHaler 18 MCG eCW1 ([facility]) 200 ACTUAT Albuterol 0.09 MG/ACTUAT Mete red Dose Inhaler [Ventolin] Ventolin HFA 108 (90 Base) MCG/ACT Ventolin HFA 108 (90 Base) MCG/ACT 08/25/2019 12:00:00 AM EDT 1.0 {puff_as_needed} active Jovani tolin HFA 108 (90 Base) MCG/ACT eCW1 ([facility]) tiotropium 0.018 MG/ACTUAT Inhalant Powder [Spiriva] S piriva HandiHaler 18 MCG Spiriva HandiHaler 18 MCG 08/25/2019 12:00:00 AM EDT active Spiriva HandiHaler 18 MCG eCW1 ([facility]) 200 ACTUAT Albuterol 0.09 MG/ACTUAT Mete red Dose Inhaler [Ventolin] Ventolin HFA 108 (90 Base) MCG/ACT Ventolin HFA 108 (90 Base) MCG/ACT 08/25/2019 12:00:00 AM EDT 1.0 {puff_as_needed} active Jovani tolin HFA 108 (90 Base) MCG/ACT eCW1 ([facility]) 200 ACTUAT Albuterol 0.09 MG/ACTUAT Mete red Dose Inhaler [Ventolin] Ventolin HFA 108 (90 Base) MCG/ACT Ventolin HFA 108 (90 Base) MCG/ACT 08/25/2019 12:00:00 AM EDT 1.0 {puff_as_needed} suspended Ventolin HFA 108 (90 Base) MCG/ACT eCW1 ([facility]) 200 ACTUAT Albuterol 0.09 MG/ACTUAT [place]e red Dose Inhaler [Ventolin] Ventolin HFA 108 (90 Base) MCG/ACT Ventolin HFA 108 (90 Base) MCG/ACT 08/25/2019 12:00:00 AM EDT 1.0 {puff_as_needed} suspended Ventolin HFA 108 (90 Base) MCG/ACT eCW1 ([facility]) 200 ACTUAT Albuterol 0.09 MG/ACTUAT [facility]e red Dose Inhaler [Ventolin] Ventolin HFA 108 (90 Base) MCG/ACT Ventolin HFA 108 (90 Base) MCG/ACT 08/25/2019 12:00:00 AM EDT 1.0 {puff_as_needed} suspended Ventolin HFA 108 (90 Base) MCG/ACT eCW1 ([facility]) 200 ACTUAT Albuterol 0.09 MG/ACTUAT [facility]e red Dose Inhaler [Ventolin] Ventolin HFA 108 (90 Base) MCG/ACT Ventolin HFA 108 (90 Base) MCG/ACT 08/25/2019 12:00:00 AM EDT 1.0 {puff_as_needed} suspended Ventolin HFA 108 (90 Base) MCG/ACT eCW1 ([facility]) 200 ACTUAT Albuterol 0.09 MG/ACTUAT Mete red Dose Inhaler [Ventolin] Ventolin HFA 108 (90 Base) MCG/ACT Ventolin HFA 108 (90 Base) MCG/ACT 08/25/2019 12:00:00 AM EDT 1.0 {puff_as_needed} suspended Ventolin HFA 108 (90 Base) MCG/ACT eCW1 ([facility]) 200 ACTUAT Albuterol 0.09 MG/ACTUAT Mete red Dose Inhaler [Ventolin] Ventolin HFA 108 (90 Base) MCG/ACT Ventolin HFA 108 (90 Base) MCG/ACT 08/25/2019 12:00:00 AM EDT 1.0 {puff_as_needed} suspended Ventolin HFA 108 (90 Base) MCG/ACT eCW1 ([facility]) 200 ACTUAT Albuterol 0.09 MG/ACTUAT Mete red Dose Inhaler [Ventolin] Ventolin HFA 108 (90 Base) MCG/ACT Ventolin HFA 108 (90 Base) MCG/ACT 08/25/2019 12:00:00 AM EDT 1.0 {puff_as_needed} active Jovani tolin HFA 108 (90 Base) MCG/ACT eCW1 ([facility]) 200 ACTUAT Albuterol 0.09 MG/ACTUAT Mete red Dose Inhaler [Ventolin] Ventolin HFA 108 (90 Base) MCG/ACT Ventolin HFA 108 (90 Base) MCG/ACT 08/25/2019 12:00:00 AM EDT 1.0 {puff_as_needed} suspended Ventolin HFA 108 (90 Base) MCG/ACT eCW1 ([facility]) tiotropium 0.018 MG/ACTUAT Inhalant Powder [Spiriva] S piriva HandiHaler 18 MCG Spiriva HandiHaler 18 MCG 08/25/2019 12:00:00 AM EDT active Spiriva HandiHaler 18 MCG eCW1 ([facility]) 200 ACTUAT Albuterol 0.09 MG/ACTUAT [facility]e red Dose Inhaler [Ventolin] Ventolin HFA 108 (90 Base) MCG/ACT Ventolin HFA 108 (90 Base) MCG/ACT 08/25/2019 12:00:00 AM EDT 1.0 {puff_as_needed} suspended Ventolin HFA 108 (90 Base) MCG/ACT eCW1 ([facility]) 200 ACTUAT Albuterol 0.09 MG/ACTUAT Mete red Dose Inhaler [Ventolin] Ventolin HFA 108 (90 Base) MCG/ACT Ventolin HFA 108 (90 Base) MCG/ACT 08/25/2019 12:00:00 AM EDT 1.0 {puff_as_needed} active Jovani tolin HFA 108 (90 Base) MCG/ACT eCW1 ([facility]) 200 ACTUAT Albuterol 0.09 MG/ACTUAT Mete red Dose Inhaler [Ventolin] Ventolin HFA 108 (90 Base) MCG/ACT Ventolin HFA 108 (90 Base) MCG/ACT 08/25/2019 12:00:00 AM EDT 1.0 {puff_as_needed} active Jovani tolin HFA 108 (90 Base) MCG/ACT eCW1 ([facility]) 200 ACTUAT Albuterol 0.09 MG/ACTUAT [facility]e red Dose Inhaler [Ventolin] Ventolin HFA 108 (90 Base) MCG/ACT Ventolin HFA 108 (90 Base) MCG/ACT 08/25/2019 12:00:00 AM EDT 1.0 {puff_as_needed} suspended Ventolin HFA 108 (90 Base) MCG/ACT eCW1 ([facility]) 200 ACTUAT Albuterol 0.09 MG/ACTUAT Mete red Dose Inhaler [Ventolin] Ventolin HFA 108 (90 Base) MCG/ACT Ventolin HFA 108 (90 Base) MCG/ACT 08/25/2019 12:00:00 AM EDT 1.0 {puff_as_needed} suspended Ventolin HFA 108 (90 Base) MCG/ACT eCW1 ([facility]) 200 ACTUAT Albuterol 0.09 MG/ACTUAT Mete red Dose Inhaler [Ventolin] Ventolin HFA 108 (90 Base) MCG/ACT Ventolin HFA 108 (90 Base) MCG/ACT 08/25/2019 12:00:00 AM EDT 1.0 {puff_as_needed} suspended Ventolin HFA 108 (90 Base) MCG/ACT eCW1 ([facility]) 200 ACTUAT Albuterol 0.09 MG/ACTUAT Mete red Dose Inhaler [Ventolin] Ventolin HFA 108 (90 Base) MCG/ACT Ventolin HFA 108 (90 Base) MCG/ACT 08/25/2019 12:00:00 AM EDT 1.0 {puff_as_needed} suspended Ventolin HFA 108 (90 Base) MCG/ACT eCW1 ([facility]) 200 ACTUAT Albuterol 0.09 MG/ACTUAT Mete red Dose Inhaler [Ventolin] Ventolin HFA 108 (90 Base) MCG/ACT Ventolin HFA 108 (90 Base) MCG/ACT 08/25/2019 12:00:00 AM EDT 1.0 {puff_as_needed} suspended Ventolin HFA 108 (90 Base) MCG/ACT eCW1 ([facility]) 200 ACTUAT Albuterol 0.09 MG/ACTUAT Mete red Dose Inhaler [Ventolin] Ventolin HFA 108 (90 Base) MCG/ACT Ventolin HFA 108 (90 Base) MCG/ACT 08/25/2019 12:00:00 AM EDT 1.0 {puff_as_needed} suspended Ventolin HFA 108 (90 Base) MCG/ACT eCW1 ([facility]) 200 ACTUAT Albuterol 0.09 MG/ACTUAT Mete red Dose Inhaler [Ventolin] Ventolin HFA 108 (90 Base) MCG/ACT Ventolin HFA 108 (90 Base) MCG/ACT 08/25/2019 12:00:00 AM EDT 1.0 {puff_as_needed} suspended Ventolin HFA 108 (90 Base) MCG/ACT eCW1 ([facility]) tiotropium 0.018 MG/ACTUAT Inhalant Powder [Spiriva] S piriva HandiHaler 18 MCG Spiriva HandiHaler 18 MCG 08/25/2019 12:00:00 AM EDT active Spiriva HandiHaler 18 MCG eCW1 ([facility]) 200 ACTUAT Albuterol 0.09 MG/ACTUAT [facility]e red Dose Inhaler [Ventolin] Ventolin HFA 108 (90 Base) MCG/ACT Ventolin HFA 108 (90 Base) MCG/ACT 08/25/2019 12:00:00 AM EDT 1.0 {puff_as_needed} suspended Ventolin HFA 108 (90 Base) MCG/ACT eCW1 ([facility]) tiotropium 0.018 MG/ACTUAT Inhalant Powder [Spiriva] S piriva HandiHaler 18 MCG Spiriva HandiHaler 18 MCG 08/25/2019 12:00:00 AM EDT active Spiriva HandiHaler 18 MCG eCW1 ([facility]) 200 ACTUAT Albuterol 0.09 MG/ACTUAT Mete red Dose Inhaler [Ventolin] Ventolin HFA 108 (90 Base) MCG/ACT Ventolin HFA 108 (90 Base) MCG/ACT 08/25/2019 12:00:00 AM EDT 1.0 {puff_as_needed} active Jovani tolin HFA 108 (90 Base) MCG/ACT eCW1 ([facility]) 10-325 mg 08/15/2019 12:00:00 AM [...] {tablet_as_needed} active Percocet 10-3 25 MG eCW1 ([facility]) Acetaminophen 325 MG / Oxycodone Hydroch loride 10 MG Oral Tablet [Percocet] Percocet 10-325 MG Percocet 10-325 MG 08/07/2019 12:00:00 AM EDT 1.0 {tablet_as_needed} suspended Percocet 10 -325 MG eCW1 ([facility]) Acetaminophen 325 MG / Oxycodone Hydroch loride 10 MG Oral Tablet [Percocet] Percocet 10-325 MG Percocet 10-325 MG 08/07/2019 12:00:00 AM EDT 1.0 {tablet_as_needed} suspended Percocet 10 -325 MG eCW1 ([facility]) Acetaminophen 325 MG / Oxycodone Hydroch loride 10 MG Oral Tablet [Percocet] Percocet 10-325 MG Percocet 10-325 MG 08/07/2019 12:00:00 AM EDT 1.0 {tablet_as_needed} active Percocet 10-3 25 MG eCW1 ([facility]) Acetaminophen 325 MG / Oxycodone Hydroch loride 10 MG Oral Tablet [Percocet] Percocet 10-325 MG Percocet 10-325 MG 08/07/2019 12:00:00 AM EDT 1.0 {tablet_as_needed} suspended Percocet 10 -325 MG eCW1 ([facility]) Acetaminophen 325 MG / Oxycodone Hydroch loride 10 MG Oral Tablet [Percocet] Percocet 10-325 MG Percocet 10-325 MG 08/07/2019 12:00:00 AM EDT 1.0 {tablet_as_needed} suspended Percocet 10 -325 MG eCW1 ([facility]) Acetaminophen 325 MG / Oxycodone Hydroch loride 10 MG Oral Tablet [Percocet] Percocet 10-325 MG Percocet 10-325 MG 08/07/2019 12:00:00 AM EDT 1.0 {tablet_as_needed} active Percocet 10-3 25 MG eCW1 ([facility]) Acetaminophen 325 MG / Oxycodone Hydroch loride 10 MG Oral Tablet [Percocet] Percocet 10-325 MG Percocet 10-325 MG 08/07/2019 12:00:00 AM EDT 1.0 {tablet_as_needed} suspended Percocet 10 -325 MG eCW1 ([facility]) Acetaminophen 325 MG / Oxycodone Hydroch loride 10 MG Oral Tablet [Percocet] Percocet 10-325 MG Percocet 10-325 MG 08/07/2019 12:00:00 AM EDT 1.0 {tablet_as_needed} active Percocet 10-3 25 MG eCW1 ([facility]) Acetaminophen 325 MG / Oxycodone Hydroch loride 10 MG Oral Tablet [Percocet] Percocet 10-325 MG Percocet 10-325 MG 08/07/2019 12:00:00 AM EDT 1.0 {tablet_as_needed} active Percocet 10-3 25 MG eCW1 ([facility]) Acetaminophen 325 MG / Oxycodone Hydroch loride 10 MG Oral Tablet [Percocet] Percocet 10-325 MG Percocet 10-325 MG 08/07/2019 12:00:00 AM EDT 1.0 {tablet_as_needed} active Percocet 10-3 25 MG eCW1 ([facility]) Acetaminophen 325 MG / Oxycodone Hydroch loride 10 MG Oral Tablet [Percocet] Percocet 10-325 MG Percocet 10-325 MG 08/07/2019 12:00:00 AM EDT 1.0 {tablet_as_needed} active Percocet 10-3 25 MG eCW1 ([facility]) Acetaminophen 325 MG / Oxycodone Hydroch loride 10 MG Oral Tablet [Percocet] Percocet 10-325 MG Percocet 10-325 MG 08/07/2019 12:00:00 AM EDT 1.0 {tablet_as_needed} active Percocet 10-3 25 MG eCW1 ([facility]) Acetaminophen 325 MG / Oxycodone Hydroch loride 10 MG Oral Tablet [Percocet] Percocet 10-325 MG Percocet 10-325 MG 08/07/2019 12:00:00 AM EDT 1.0 {tablet_as_needed} suspended Percocet 10 -325 MG eCW1 ([facility]) Acetaminophen 325 MG / Oxycodone Hydroch loride 10 MG Oral Tablet [Percocet] Percocet 10-325 MG Percocet 10-325 MG 08/07/2019 12:00:00 AM EDT 1.0 {tablet_as_needed} suspended Percocet 10 -325 MG eCW1 ([facility]) Acetaminophen 325 MG / Oxycodone Hydroch loride 10 MG Oral Tablet [Percocet] Percocet 10-325 MG Percocet 10-325 MG 08/07/2019 12:00:00 AM EDT 1.0 {tablet_as_needed} suspended Percocet 10 -325 MG eCW1 ([facility]) Acetaminophen 325 MG / Oxycodone Hydroch loride 10 MG Oral Tablet [Percocet] Percocet 10-325 MG Percocet 10-325 MG 08/07/2019 12:00:00 AM EDT 1.0 {tablet_as_needed} active Percocet 10-3 25 MG eCW1 ([facility]) Acetaminophen 325 MG / Oxycodone Hydroch loride 10 MG Oral Tablet [Percocet] Percocet 10-325 MG Percocet 10-325 MG 08/07/2019 12:00:00 AM EDT 1.0 {tablet_as_needed} active Percocet 10-3 25 MG eCW1 ([facility]) Acetaminophen 325 MG / Oxycodone Hydroch loride 10 MG Oral Tablet [Percocet] Percocet 10-325 MG Percocet 10-325 MG 08/07/2019 12:00:00 AM EDT 1.0 {tablet_as_needed} active Percocet 10-3 25 MG eCW1 ([facility]) Acetaminophen 325 MG / Oxycodone Hydroch loride 10 MG Oral Tablet [Percocet] Percocet 10-325 MG Percocet 10-325 MG 08/07/2019 12:00:00 AM EDT 1.0 {tablet_as_needed} active Percocet 10-3 25 MG eCW1 ([facility]) Acetaminophen 325 MG / Oxycodone Hydroch loride 10 MG Oral Tablet [Percocet] Percocet 10-325 MG Percocet 10-325 MG 08/07/2019 12:00:00 AM EDT 1.0 {tablet_as_needed} suspended Percocet 10 -325 MG eCW1 ([facility]) Acetaminophen 325 MG / Oxycodone Hydroch loride 10 MG Oral Tablet [Percocet] Percocet 10-325 MG Percocet 10-325 MG 08/07/2019 12:00:00 AM EDT 1.0 {tablet_as_needed} active Percocet 10-3 25 MG eCW1 ([facility]) Acetaminophen 325 MG / Oxycodone Hydroch loride 10 MG Oral Tablet [Percocet] Percocet 10-325 MG Percocet 10-325 MG 08/07/2019 12:00:00 AM EDT 1.0 {tablet_as_needed} active Percocet 10-3 25 MG eCW1 ([facility]) Acetaminophen 325 MG / Oxycodone Hydroch loride 10 MG Oral Tablet [Percocet] Percocet 10-325 MG Percocet 10-325 MG 08/07/2019 12:00:00 AM EDT 1.0 {tablet_as_needed} suspended Percocet 10 -325 MG eCW1 ([facility]) Acetaminophen 325 MG / Oxycodone Hydroch loride 10 MG Oral Tablet [Percocet] Percocet 10-325 MG Percocet 10-325 MG 08/07/2019 12:00:00 AM EDT 1.0 {tablet_as_needed} suspended Percocet 10 -325 MG eCW1 ([facility]) Acetaminophen 325 MG / Oxycodone Hydroch loride 10 MG Oral Tablet [Percocet] Percocet 10-325 MG Percocet 10-325 MG 08/07/2019 12:00:00 AM EDT 1.0 {tablet_as_needed} suspended Percocet 10 -325 MG eCW1 ([facility]) Acetaminophen 325 MG / Oxycodone Hydroch loride 10 MG Oral Tablet [Percocet] Percocet 10-325 MG Percocet 10-325 MG 08/07/2019 12:00:00 AM EDT 1.0 {tablet_as_needed} active Percocet 10-3 25 MG eCW1 ([facility]) Acetaminophen 325 MG / Oxycodone Hydroch loride 10 MG Oral Tablet [Percocet] Percocet 10-325 MG Percocet 10-325 MG 08/07/2019 12:00:00 AM EDT 1.0 {tablet_as_needed} active Percocet 10-3 25 MG eCW1 ([facility]) Acetaminophen 325 MG / Oxycodone Hydroch loride 10 MG Oral Tablet [Percocet] Percocet 10-325 MG Percocet 10-325 MG 08/07/2019 12:00:00 AM EDT 1.0 {tablet_as_needed} active Percocet 10-3 25 MG eCW1 ([facility]) 15 mg 08/06/2019 12:00:00 AM [...] ac tive Propranolol HCl 10 MG eCW1 ([facility]) Chlorthalidone 25 MG Oral Tablet Chlorthalidone 25 MG 2019 12:00:00 AM EDT 1.0 {tablet_in_the_morning_with_food} active Chlorthalidone 25 MG eCW1 ([facility]) 10 mg 08/04/2019 12:00:00 AM EDT tablet 60 TAKE ONE TABLET BY MOUTH TWICE A DAY TAKE ONE TABLET BY MOUTH TWICE A DAY SOLD: 08/05/2019 [facility] Morphine Sulfate 15 MG Extended Release Oral Tablet Mo rphine Sulfate ER 15 MG Morphine Sulfate ER 15 MG 07/28/2019 12:00:00 AM EDT active Morphine Sulfate ER 15 MG eCW1 ([facility]) Morphine Sulfate 15 MG Extended Release Oral Tablet Mo rphine Sulfate ER 15 MG Morphine Sulfate ER 15 MG 07/28/2019 12:00:00 AM EDT active Morphine Sulfate ER 15 MG eCW1 ([facility]) Morphine Sulfate 15 MG Extended Release Oral Tablet Mo rphine Sulfate ER 15 MG Morphine Sulfate ER 15 MG 07/28/2019 12:00:00 AM EDT active Morphine Sulfate ER 15 MG eCW1 ([facility]) Morphine Sulfate 15 MG Extended Release Oral Tablet Mo rphine Sulfate ER 15 MG Morphine Sulfate ER 15 MG 07/28/2019 12:00:00 AM EDT active Morphine Sulfate ER 15 MG eCW1 ([facility]) Morphine Sulfate 15 MG Extended Release Oral Tablet Mo rphine Sulfate ER 15 MG Morphine Sulfate ER 15 MG 07/28/2019 12:00:00 AM EDT active Morphine Sulfate ER 15 MG eCW1 ([facility]) 300 mg 07/28/2019 12:00:00 AM EDT capsule 60 TAKE ONE CAPSULE BY MOUTH TWICE A DAY, MAXIMUM DAILY DOSE = 2 CAPSULES TAKE ONE CAPSULE BY MOUTH TWICE A DAY, MAXIMUM DAILY DOSE = 2 CAPSULES SOLD: 08/26/2019 [facility] Morphine Sulfate 15 MG Extended Release Oral Tablet Mo rphine Sulfate ER 15 MG Morphine Sulfate ER 15 MG 07/28/2019 12:00:00 AM EDT active Morphine Sulfate ER 15 MG eCW1 ([facility]) Morphine Sulfate 15 MG Extended Release Oral Tablet Mo rphine Sulfate ER 15 MG Morphine Sulfate ER 15 MG 07/28/2019 12:00:00 AM EDT active Morphine Sulfate ER 15 MG eCW1 ([facility]) Morphine Sulfate 15 MG Extended Release Oral Tablet Mo rphine Sulfate ER 15 MG Morphine Sulfate ER 15 MG 07/28/2019 12:00:00 AM EDT active Morphine Sulfate ER 15 MG eCW1 ([facility]) 300 mg 07/28/2019 12:00:00 AM [...] active Morphine Sulfate ER 15 MG eCW1 ([facility]) Morphine Sulfate 15 MG Extended Release Oral Tablet Mo rphine Sulfate ER 15 MG Morphine Sulfate ER 15 MG 07/28/2019 12:00:00 AM EDT active Morphine Sulfate ER 15 MG eCW1 ([facility]) 10-325 mg 07/17/2019 12:00:00 AM [...] active 1 tablet as needed eCW1 ([facility]) Amitriptyline Hydrochloride 25 MG Oral [...] TABLETS BY MOUTH EVERY DAY SOLD: 08/18/2019 [facility] Morphine Sulfate 15 MG Extended Release Oral Tablet Mo rphine Sulfate ER 15 MG Morphine Sulfate ER 15 MG 07/07/2019 12:00:00 AM EDT active Morphine Sulfate ER 15 MG eCW1 ([facility]) Morphine Sulfate 15 MG Extended Release Oral Tablet Mo rphine Sulfate ER 15 MG Morphine Sulfate ER 15 MG 07/07/2019 12:00:00 AM EDT active Morphine Sulfate ER 15 MG eCW1 ([facility]) Morphine Sulfate 15 MG Extended Release Oral Tablet Mo rphine Sulfate ER 15 MG Morphine Sulfate ER 15 MG 07/07/2019 12:00:00 AM EDT active 1 to 2 as directed eCW1 ([facility]) 15 mg 07/07/2019 12:00:00 AM [...] active Morphine Sulfate ER 15 MG eCW1 ([facility]) 100,000 unit/gram 06/25/2019 12:00:00 AM EDT [...] {tablet_as_needed} active Percocet 10-3 25 MG eCW1 ([facility]) Acetaminophen 325 MG / Oxycodone Hydroch loride 10 MG Oral Tablet [Percocet] Percocet 10-325 MG Percocet 10-325 MG 06/17/2019 12:00:00 AM EDT 1.0 {tablet_as_needed} active Percocet 10-3 25 MG eCW1 ([facility]) Acetaminophen 325 MG / Oxycodone Hydroch loride 10 MG Oral Tablet [Percocet] Percocet 10-325 MG Percocet 10-325 MG 06/17/2019 12:00:00 AM EDT active 1 tablet as needed eCW1 ([facility]) Acetaminophen 325 MG / Oxycodone Hydroch loride 10 MG Oral Tablet [Percocet] Percocet 10-325 MG Percocet 10-325 MG 06/17/2019 12:00:00 AM EDT 1.0 {tablet_as_needed} active Percocet 10-3 25 MG eCW1 ([facility]) Acetaminophen 325 MG / Oxycodone Hydroch loride 10 MG Oral Tablet [Percocet] Percocet 10-325 MG Percocet 10-325 MG 06/17/2019 12:00:00 AM EDT active 1 tablet as needed eCW1 ([facility]) Acetaminophen 325 MG / Oxycodone Hydroch loride 10 MG Oral Tablet [Percocet] Percocet 10-325 MG Percocet 10-325 MG 06/17/2019 12:00:00 AM EDT 1.0 {tablet_as_needed} active Percocet 10-3 25 MG eCW1 ([facility]) Acetaminophen 325 MG / Oxycodone Hydroch loride 10 MG Oral Tablet [Percocet] Percocet 10-325 MG Percocet 10-325 MG 06/17/2019 12:00:00 AM EDT 1.0 {tablet_as_needed} active Percocet 10-3 25 MG eCW1 ([facility]) Acetaminophen 325 MG / Oxycodone Hydroch loride 10 MG Oral Tablet [Percocet] Percocet 10-325 MG Percocet 10-325 MG 06/17/2019 12:00:00 AM EDT 1.0 {tablet_as_needed} active Percocet 10-3 25 MG eCW1 ([facility]) 5 mg 06/11/2019 12:00:00 AM EDT [...] active 1 to 2 as directed eCW1 ([facility]) Morphine Sulfate 15 MG Extended Release Oral Tablet Mo rphine Sulfate ER 15 MG Morphine Sulfate ER 15 MG 06/03/2019 12:00:00 AM EDT active 1 to 2 as directed eCW1 ([facility]) 40 mg 06/03/2019 12:00:00 AM [...] active 1 to 2 as directed eCW1 ([facility]) 350 mg 05/31/2019 12:00:00 AM EDT [...] GROIN TWO TIMES A DAY SOLD: 06/03/2019 [facility] 100,000 unit/gram 05/21/2019 12:00:00 AM EDT [...] active 1 tablet as needed eCW1 ([facility]) Acetaminophen 325 MG / Oxycodone Hydroch loride 10 MG Oral Tablet [Percocet] Percocet 10-325 MG Percocet 10-325 MG 05/18/2019 12:00:00 AM EDT active 1 tablet as needed eCW1 ([facility]) Acetaminophen 325 MG / Oxycodone Hydroch loride 10 MG Oral Tablet [Percocet] Percocet 10-325 MG Percocet 10-325 MG 05/18/2019 12:00:00 AM EDT active 1 tablet as needed eCW1 ([facility]) 800 mg 05/16/2019 12:00:00 AM EDT tablet [...] active 1 to 2 as directed eCW1 ([facility]) Morphine Sulfate 15 MG Extended Release Oral Tablet Mo rphine Sulfate ER 15 MG Morphine Sulfate ER 15 MG 05/04/2019 12:00:00 AM EDT active 1 to 2 as directed eCW1 ([facility]) Morphine Sulfate 15 MG Extended Release Oral Tablet Mo rphine Sulfate ER 15 MG Morphine Sulfate ER 15 MG 05/04/2019 12:00:00 AM EDT active 1 to 2 as directed eCW1 ([facility]) 100,000 unit/gram 04/30/2019 12:00:00 AM EDT cream 30 APPLY TO RASH ON GROIN TWO TIMES A DAY APPLY TO RASH ON GROIN TWO TIMES A DAY SOLD: 05/13/2019 [facility] 100,000 unit/gram 04/30/2019 12:00:00 AM EDT cream 30 APPLY TO RASH ON GROIN TWO TIMES A DAY APPLY TO RASH ON GROIN TWO TIMES A DAY SOLD: 05/12/2019 [facility] Acetaminophen 325 MG / Oxycodone Hydroch loride 10 MG Oral Tablet [Percocet] Percocet 10-325 MG Percocet 10-325 MG 04/21/2019 12:00:00 AM EDT active 1 tablet as needed eCW1 ([facility]) 10-325 mg 04/21/2019 12:00:00 AM EDT tablet [...] active 1 to 2 as directed eCW1 ([facility]) Morphine Sulfate 15 MG Extended Release Oral Tablet Mo rphine Sulfate ER 15 MG Morphine Sulfate ER 15 MG 04/08/2019 12:00:00 AM EST active 1 to 2 as directed eCW1 ([facility]) Amitriptyline Hydrochloride 25 MG Oral [...] 10 days, Max Daily Dose: 20 mg [facility] 20 mg 03/27/2019 12:00:00 AM EST [...] 12:00:00 AM EST active 1 tablet eCW1 ([facility]) atorvastatin 40 MG Oral Tablet Atorvastatin Calcium 40 MG Atorvastatin Calcium 40 MG 03/26/2019 12:00:00 AM EST 1.0 {tablet} activ e Atorvastatin Calcium 40 MG eCW1 ([facility]) atorvastatin 40 MG Oral Tablet Atorvastatin Calcium 40 MG Atorvastatin Calcium 40 MG 03/26/2019 12:00:00 AM EST active 1 tablet eCW1 ([facility]) atorvastatin 40 MG Oral Tablet Atorvastatin Calcium 40 MG Atorvastatin Calcium 40 MG 03/26/2019 12:00:00 AM EST 1.0 {tablet} activ e Atorvastatin Calcium 40 MG eCW1 ([facility]) atorvastatin 40 MG Oral Tablet Atorvastatin Calcium 40 MG Atorvastatin Calcium 40 MG 03/26/2019 12:00:00 AM EST 1.0 {tablet} activ e Atorvastatin Calcium 40 MG eCW1 ([facility]) atorvastatin 40 MG Oral Tablet Atorvastatin Calcium 40 MG Atorvastatin Calcium 40 MG 03/26/2019 12:00:00 AM EST 1.0 {tablet} activ e Atorvastatin Calcium 40 MG eCW1 ([facility]) atorvastatin 40 MG Oral Tablet Atorvastatin Calcium 40 MG Atorvastatin Calcium 40 MG 03/26/2019 12:00:00 AM EST 1.0 {tablet} activ e Atorvastatin Calcium 40 MG eCW1 ([facility]) atorvastatin 40 MG Oral Tablet Atorvastatin Calcium 40 MG Atorvastatin Calcium 40 MG 03/26/2019 12:00:00 AM EST 1.0 {tablet} activ e Atorvastatin Calcium 40 MG eCW1 ([facility]) atorvastatin 40 MG Oral Tablet Atorvastatin Calcium 40 MG Atorvastatin Calcium 40 MG 03/26/2019 12:00:00 AM EST 1.0 {tablet} activ e Atorvastatin Calcium 40 MG eCW1 ([facility]) atorvastatin 40 MG Oral Tablet Atorvastatin Calcium 40 MG Atorvastatin Calcium 40 MG 03/26/2019 12:00:00 AM EST 1.0 {tablet} activ e Atorvastatin Calcium 40 MG eCW1 ([facility]) atorvastatin 40 MG Oral Tablet Atorvastatin Calcium 40 MG Atorvastatin Calcium 40 MG 03/26/2019 12:00:00 AM EST 1.0 {tablet} activ e Atorvastatin Calcium 40 MG eCW1 ([facility]) atorvastatin 40 MG Oral Tablet Atorvastatin Calcium 40 MG Atorvastatin Calcium 40 MG 03/26/2019 12:00:00 AM EST 1.0 {tablet} activ e Atorvastatin Calcium 40 MG eCW1 ([facility]) atorvastatin 40 MG Oral Tablet Atorvastatin Calcium 40 MG Atorvastatin Calcium 40 MG 03/26/2019 12:00:00 AM EST 1.0 {tablet} activ e Atorvastatin Calcium 40 MG eCW1 ([facility]) atorvastatin 40 MG Oral Tablet Atorvastatin Calcium 40 MG Atorvastatin Calcium 40 MG 03/26/2019 12:00:00 AM EST 1.0 {tablet} activ e Atorvastatin Calcium 40 MG eCW1 ([facility]) atorvastatin 40 MG Oral Tablet Atorvastatin Calcium 40 MG Atorvastatin Calcium 40 MG 03/26/2019 12:00:00 AM EST 1.0 {tablet} activ e Atorvastatin Calcium 40 MG eCW1 ([facility]) atorvastatin 40 MG Oral Tablet Atorvastatin Calcium 40 MG Atorvastatin Calcium 40 MG 03/26/2019 12:00:00 AM EST 1.0 {tablet} activ e Atorvastatin Calcium 40 MG eCW1 ([facility]) atorvastatin 40 MG Oral Tablet Atorvastatin Calcium 40 MG Atorvastatin Calcium 40 MG 03/26/2019 12:00:00 AM EST 1.0 {tablet} activ e Atorvastatin Calcium 40 MG eCW1 ([facility]) atorvastatin 40 MG Oral Tablet Atorvastatin Calcium 40 MG Atorvastatin Calcium 40 MG 03/26/2019 12:00:00 AM EST 1.0 {tablet} activ e Atorvastatin Calcium 40 MG eCW1 ([facility]) atorvastatin 40 MG Oral Tablet Atorvastatin Calcium 40 MG Atorvastatin Calcium 40 MG 03/26/2019 12:00:00 AM EST 1.0 {tablet} activ e Atorvastatin Calcium 40 MG eCW1 ([facility]) atorvastatin 40 MG Oral Tablet Atorvastatin Calcium 40 MG Atorvastatin Calcium 40 MG 03/26/2019 12:00:00 AM EST 1.0 {tablet} activ e Atorvastatin Calcium 40 MG eCW1 ([facility]) atorvastatin 40 MG Oral Tablet Atorvastatin Calcium 40 MG Atorvastatin Calcium 40 MG 03/26/2019 12:00:00 AM EST 1.0 {tablet} activ e Atorvastatin Calcium 40 MG eCW1 ([facility]) atorvastatin 40 MG Oral Tablet Atorvastatin Calcium 40 MG Atorvastatin Calcium 40 MG 03/26/2019 12:00:00 AM EST 1.0 {tablet} activ e Atorvastatin Calcium 40 MG eCW1 ([facility]) Ergocalciferol 46375 UNT Oral Capsule Vi tamin D (Ergocalciferol) 1.25 MG (14282 UT) Oral Capsule (ERGOCALCIFEROL) Vitamin D (Ergocalciferol) 1.25 MG (5000 0 UT) Oral Capsule (ERGOCALCIFEROL) 03/26/2019 12:00:00 AM EST [facility] Losartan Potassium 50 MG Oral Tablet [place] Potassium 50 MG Oral Tablet (COZAAR) Losartan Potassium 50 MG Oral Tablet (COZAAR) 03/26/19 12:00:00 AM EST active [facility] atorvastatin 40 MG Oral Tablet Atorvastatin Calcium 40 MG Oral Tablet (LIPITOR) Atorvastatin Calcium 40 MG Oral Tablet (LIPITOR) 03/26/2019 12:00:00 AM EST active [facility] atorvastatin 40 MG Oral Tablet Atorvastatin Calcium 40 MG Atorvastatin Calcium 40 MG 03/26/2019 12:00:00 AM EST active 1 tablet eCW1 ([facility]) atorvastatin 40 MG Oral Tablet Atorvastatin Calcium 40 MG Atorvastatin Calcium 40 MG 03/26/2019 12:00:00 AM EST 1.0 {tablet} activ e Atorvastatin Calcium 40 MG eCW1 ([facility]) Nystatin 311639 UNT/ML Topical Cream Nystatin 474177 U NIT/GM Nystatin [id number] UNIT/GM 03/26/2019 12:00:00 AM EST active 1 application 2g eCW1 ([facility]) atorvastatin 40 MG Oral Tablet Atorvastatin Calcium 40 MG Atorvastatin Calcium 40 MG 03/26/2019 12:00:00 AM EST 1.0 {tablet} activ e Atorvastatin Calcium 40 MG eCW1 ([facility]) atorvastatin 40 MG Oral Tablet Atorvastatin Calcium 40 MG Atorvastatin Calcium 40 MG 03/26/2019 12:00:00 AM EST 1.0 {tablet} activ e Atorvastatin Calcium 40 MG eCW1 ([facility]) atorvastatin 40 MG Oral Tablet Atorvastatin Calcium 40 MG Atorvastatin Calcium 40 MG 03/26/2019 12:00:00 AM EST active 1 tablet eCW1 ([facility]) atorvastatin 40 MG Oral Tablet Atorvastatin Calcium 40 MG Atorvastatin Calcium 40 MG 03/26/2019 12:00:00 AM EST 1.0 {tablet} activ e Atorvastatin Calcium 40 MG eCW1 ([facility]) atorvastatin 40 MG Oral Tablet Atorvastatin Calcium 40 MG Atorvastatin Calcium 40 MG 03/26/2019 12:00:00 AM EST 1.0 {tablet} activ e Atorvastatin Calcium 40 MG eCW1 ([facility]) atorvastatin 40 MG Oral Tablet Atorvastatin Calcium 40 MG Atorvastatin Calcium 40 MG 03/26/2019 12:00:00 AM EST 1.0 {tablet} activ e Atorvastatin Calcium 40 MG eCW1 ([facility]) atorvastatin 40 MG Oral Tablet Atorvastatin Calcium 40 MG Atorvastatin Calcium 40 MG 03/26/2019 12:00:00 AM EST 1.0 {tablet} activ e Atorvastatin Calcium 40 MG eCW1 ([facility]) atorvastatin 40 MG Oral Tablet Atorvastatin Calcium 40 MG Atorvastatin Calcium 40 MG 03/26/2019 12:00:00 AM EST 1.0 {tablet} activ e Atorvastatin Calcium 40 MG eCW1 ([facility]) Nystatin 269648 UNT/ML Topical Cream Nystatin 113053 U NIT/GM Nystatin 918612 UNIT/GM 03/26/2019 12:00:00 AM EST active 1 application 2g eCW1 ([facility]) atorvastatin 40 MG Oral Tablet Atorvastatin Calcium 40 MG Atorvastatin Calcium 40 MG 03/26/2019 12:00:00 AM EST 1.0 {tablet} activ e Atorvastatin Calcium 40 MG eCW1 ([facility]) atorvastatin 40 MG Oral Tablet Atorvastatin Calcium 40 MG Atorvastatin Calcium 40 MG 03/26/2019 12:00:00 AM EST active 1 tablet eCW1 ([facility]) atorvastatin 40 MG Oral Tablet Atorvastatin Calcium 40 MG Atorvastatin Calcium 40 MG 03/26/2019 12:00:00 AM EST 1.0 {tablet} activ e Atorvastatin Calcium 40 MG eCW1 ([facility]) atorvastatin 40 MG Oral Tablet Atorvastatin Calcium 40 MG Atorvastatin Calcium 40 MG 03/26/2019 12:00:00 AM EST 1.0 {tablet} activ e Atorvastatin Calcium 40 MG eCW1 ([facility]) atorvastatin 40 MG Oral Tablet Atorvastatin Calcium 40 MG Atorvastatin Calcium 40 MG 03/26/2019 12:00:00 AM EST 1.0 {tablet} activ e Atorvastatin Calcium 40 MG eCW1 ([facility]) atorvastatin 40 MG Oral Tablet Atorvastatin Calcium 40 MG Atorvastatin Calcium 40 MG 03/26/2019 12:00:00 AM EST 1.0 {tablet} activ e Atorvastatin Calcium 40 MG eCW1 ([facility]) atorvastatin 40 MG Oral Tablet Atorvastatin Calcium 40 MG Atorvastatin Calcium 40 MG 03/26/2019 12:00:00 AM EST 1.0 {tablet} activ e Atorvastatin Calcium 40 MG eCW1 ([facility]) atorvastatin 40 MG Oral Tablet Atorvastatin Calcium 40 MG Atorvastatin Calcium 40 MG 03/26/2019 12:00:00 AM EST 1.0 {tablet} activ e Atorvastatin Calcium 40 MG eCW1 ([facility]) atorvastatin 40 MG Oral Tablet Atorvastatin Calcium 40 MG Atorvastatin Calcium 40 MG 03/26/2019 12:00:00 AM EST 1.0 {tablet} activ e Atorvastatin Calcium 40 MG eCW1 ([facility]) atorvastatin 40 MG Oral Tablet Atorvastatin Calcium 40 MG Atorvastatin Calcium 40 MG 03/26/2019 12:00:00 AM EST 1.0 {tablet} activ e Atorvastatin Calcium 40 MG eCW1 ([facility]) Nystatin 779107 UNT/ML Topical Cream Nystatin 844408 U NIT/GM Nystatin [id number] UNIT/GM 03/26/2019 12:00:00 AM EST active 1 application 2g eCW1 ([facility]) atorvastatin 40 MG Oral Tablet Atorvastatin Calcium 40 MG Atorvastatin Calcium 40 MG 03/26/2019 12:00:00 AM EST 1.0 {tablet} activ e Atorvastatin Calcium 40 MG eCW1 ([facility]) atorvastatin 40 MG Oral Tablet Atorvastatin Calcium 40 MG Atorvastatin Calcium 40 MG 03/26/2019 12:00:00 AM EST 1.0 {tablet} activ e Atorvastatin Calcium 40 MG eCW1 ([facility]) atorvastatin 40 MG Oral Tablet Atorvastatin Calcium 40 MG Atorvastatin Calcium 40 MG 03/26/2019 12:00:00 AM EST 1.0 {tablet} activ e Atorvastatin Calcium 40 MG eCW1 ([facility]) atorvastatin 40 MG Oral Tablet Atorvastatin Calcium 40 MG Atorvastatin Calcium 40 MG 03/26/2019 12:00:00 AM EST 1.0 {tablet} activ e Atorvastatin Calcium 40 MG eCW1 ([facility]) atorvastatin 40 MG Oral Tablet Atorvastatin Calcium 40 MG Atorvastatin Calcium 40 MG 03/26/2019 12:00:00 AM EST 1.0 {tablet} activ e Atorvastatin Calcium 40 MG eCW1 ([facility]) atorvastatin 40 MG Oral Tablet Atorvastatin Calcium 40 MG Atorvastatin Calcium 40 MG 03/26/2019 12:00:00 AM EST 1.0 {tablet} activ e Atorvastatin Calcium 40 MG eCW1 ([facility]) Nystatin 190450 UNT/ML Topical Cream Nystatin 977317 U NIT/GM Nystatin [id number] UNIT/GM 03/26/2019 12:00:00 AM EST active 1 application 2g eCW1 ([facility]) atorvastatin 40 MG Oral Tablet Atorvastatin Calcium 40 MG Atorvastatin Calcium 40 MG 03/26/2019 12:00:00 AM EST 1.0 {tablet} activ e Atorvastatin Calcium 40 MG eCW1 ([facility]) atorvastatin 40 MG Oral Tablet Atorvastatin Calcium 40 MG Atorvastatin Calcium 40 MG 03/26/2019 12:00:00 AM EST active 1 tablet eCW1 ([facility]) atorvastatin 40 MG Oral Tablet Atorvastatin Calcium 40 MG Atorvastatin Calcium 40 MG 03/26/2019 12:00:00 AM EST 1.0 {tablet} activ e Atorvastatin Calcium 40 MG eCW1 ([facility]) atorvastatin 40 MG Oral Tablet Atorvastatin Calcium 40 MG Atorvastatin Calcium 40 MG 03/26/2019 12:00:00 AM EST 1.0 {tablet} activ e Atorvastatin Calcium 40 MG eCW1 ([facility]) atorvastatin 40 MG Oral Tablet Atorvastatin Calcium 40 MG Atorvastatin Calcium 40 MG 03/26/2019 12:00:00 AM EST 1.0 {tablet} activ e Atorvastatin Calcium 40 MG eCW1 ([facility]) atorvastatin 40 MG Oral Tablet Atorvastatin Calcium 40 MG Atorvastatin Calcium 40 MG 03/26/2019 12:00:00 AM EST 1.0 {tablet} activ e Atorvastatin Calcium 40 MG eCW1 ([facility]) atorvastatin 40 MG Oral Tablet Atorvastatin Calcium 40 MG Atorvastatin Calcium 40 MG 03/26/2019 12:00:00 AM EST 1.0 {tablet} activ e Atorvastatin Calcium 40 MG eCW1 ([facility]) atorvastatin 40 MG Oral Tablet Atorvastatin Calcium 40 MG Atorvastatin Calcium 40 MG 03/26/2019 12:00:00 AM EST 1.0 {tablet} activ e Atorvastatin Calcium 40 MG eCW1 ([facility]) atorvastatin 40 MG Oral Tablet Atorvastatin Calcium 40 MG Atorvastatin Calcium 40 MG 03/26/2019 12:00:00 AM EST 1.0 {tablet} activ e Atorvastatin Calcium 40 MG eCW1 ([facility]) atorvastatin 40 MG Oral Tablet Atorvastatin Calcium 40 MG Atorvastatin Calcium 40 MG 03/26/2019 12:00:00 AM EST 1.0 {tablet} activ e Atorvastatin Calcium 40 MG eCW1 ([facility]) atorvastatin 40 MG Oral Tablet Atorvastatin Calcium 40 MG Atorvastatin Calcium 40 MG 03/26/2019 12:00:00 AM EST active 1 tablet eCW1 ([facility]) atorvastatin 40 MG Oral Tablet Atorvastatin Calcium 40 MG Atorvastatin Calcium 40 MG 03/26/2019 12:00:00 AM EST 1.0 {tablet} activ e Atorvastatin Calcium 40 MG eCW1 ([facility]) atorvastatin 40 MG Oral Tablet Atorvastatin Calcium 40 MG Atorvastatin Calcium 40 MG 03/26/2019 12:00:00 AM EST 1.0 {tablet} activ e Atorvastatin Calcium 40 MG eCW1 ([facility]) atorvastatin 40 MG Oral Tablet Atorvastatin Calcium 40 MG Atorvastatin Calcium 40 MG 03/26/2019 12:00:00 AM EST 1.0 {tablet} activ e Atorvastatin Calcium 40 MG eCW1 ([facility]) atorvastatin 40 MG Oral Tablet Atorvastatin Calcium 40 MG Atorvastatin Calcium 40 MG 03/26/2019 12:00:00 AM EST 1.0 {tablet} activ e Atorvastatin Calcium 40 MG eCW1 ([facility]) atorvastatin 40 MG Oral Tablet Atorvastatin Calcium 40 MG Atorvastatin Calcium 40 MG 03/26/2019 12:00:00 AM EST 1.0 {tablet} activ e Atorvastatin Calcium 40 MG eCW1 ([facility]) atorvastatin 40 MG Oral Tablet Atorvastatin Calcium 40 MG Atorvastatin Calcium 40 MG 03/26/2019 12:00:00 AM EST 1.0 {tablet} activ e Atorvastatin Calcium 40 MG eCW1 ([facility]) 10-325 mg 03/26/2019 12:00:00 AM EST tablet 120 TAKE 1 TABLET BY MOUTH EVERY 6 HOURS NEEDED MAXIMUM DAILY DOSE = 4 TABLETS TAKE 1 TABLET BY MOUTH EVERY 6 HOURS NEEDED MAXIMUM DAILY DOSE = 4 TABLETS SOLD: 03/26/2019 [facility] 1,250 mcg (50,000 unit) 03/26/2019 12:00:00 AM EST capsule 4 TAKE 1 CAPSULE BY MOUTH ONCE A WEEK ON MONDAYS TAKE 1 CAPSULE BY MOUTH ONCE A WEEK ON MONDAYS SOLD: 03/27/2019 [facility] atorvastatin 40 MG Oral Tablet Atorvastatin Calcium 40 MG Atorvastatin Calcium 40 MG 03/26/2019 12:00:00 AM EST 1.0 {tablet} activ e Atorvastatin Calcium 40 MG eCW1 ([facility]) atorvastatin 40 MG Oral Tablet Atorvastatin Calcium 40 MG Atorvastatin Calcium 40 MG 03/26/2019 12:00:00 AM EST 1.0 {tablet} activ e Atorvastatin Calcium 40 MG eCW1 ([facility]) atorvastatin 40 MG Oral Tablet Atorvastatin Calcium 40 MG Atorvastatin Calcium 40 MG 03/26/2019 12:00:00 AM EST 1.0 {tablet} activ e Atorvastatin Calcium 40 MG eCW1 ([facility]) atorvastatin 40 MG Oral Tablet Atorvastatin Calcium 40 MG Atorvastatin Calcium 40 MG 03/26/2019 12:00:00 AM EST 1.0 {tablet} activ e Atorvastatin Calcium 40 MG eCW1 ([facility]) atorvastatin 40 MG Oral Tablet Atorvastatin Calcium 40 MG Atorvastatin Calcium 40 MG 03/26/2019 12:00:00 AM EST 1.0 {tablet} activ e Atorvastatin Calcium 40 MG eCW1 ([facility]) atorvastatin 40 MG Oral Tablet Atorvastatin Calcium 40 MG Atorvastatin Calcium 40 MG 03/26/2019 12:00:00 AM EST active 1 tablet eCW1 ([facility]) atorvastatin 40 MG Oral Tablet Atorvastatin Calcium 40 MG Atorvastatin Calcium 40 MG 03/26/2019 12:00:00 AM EST 1.0 {tablet} activ e Atorvastatin Calcium 40 MG eCW1 ([facility]) atorvastatin 40 MG Oral Tablet Atorvastatin Calcium 40 MG Atorvastatin Calcium 40 MG 03/26/2019 12:00:00 AM EST 1.0 {tablet} activ e Atorvastatin Calcium 40 MG eCW1 ([facility]) atorvastatin 40 MG Oral Tablet Atorvastatin Calcium 40 MG Atorvastatin Calcium 40 MG 03/26/2019 12:00:00 AM EST 1.0 {tablet} activ e Atorvastatin Calcium 40 MG eCW1 ([facility]) atorvastatin 40 MG Oral Tablet Atorvastatin Calcium 40 MG Atorvastatin Calcium 40 MG 03/26/2019 12:00:00 AM EST 1.0 {tablet} activ e Atorvastatin Calcium 40 MG eCW1 ([facility]) atorvastatin 40 MG Oral Tablet Atorvastatin Calcium 40 MG Atorvastatin Calcium 40 MG 03/26/2019 12:00:00 AM EST 1.0 {tablet} activ e Atorvastatin Calcium 40 MG eCW1 ([facility]) Nystatin [id number] UNT/ML Topical Cream Nystatin 713087 U NIT/GM Nystatin [id number] UNIT/GM 03/26/2019 12:00:00 AM EST active 1 application 2g eCW1 ([facility]) atorvastatin 40 MG Oral Tablet Atorvastatin Calcium 40 MG Atorvastatin Calcium 40 MG 03/26/2019 12:00:00 AM EST 1.0 {tablet} activ e Atorvastatin Calcium 40 MG eCW1 ([facility]) atorvastatin 40 MG Oral Tablet Atorvastatin Calcium 40 MG Atorvastatin Calcium 40 MG 03/26/2019 12:00:00 AM EST 1.0 {tablet} activ e Atorvastatin Calcium 40 MG eCW1 ([facility]) atorvastatin 40 MG Oral Tablet Atorvastatin Calcium 40 MG Atorvastatin Calcium 40 MG 03/26/2019 12:00:00 AM EST 1.0 {tablet} activ e Atorvastatin Calcium 40 MG eCW1 ([facility]) atorvastatin 40 MG Oral Tablet Atorvastatin Calcium 40 MG Atorvastatin Calcium 40 MG 03/26/2019 12:00:00 AM EST 1.0 {tablet} activ e Atorvastatin Calcium 40 MG eCW1 ([facility]) atorvastatin 40 MG Oral Tablet Atorvastatin Calcium 40 MG Atorvastatin Calcium 40 MG 03/26/2019 12:00:00 AM EST 1.0 {tablet} activ e Atorvastatin Calcium 40 MG eCW1 ([facility]) atorvastatin 40 MG Oral Tablet Atorvastatin Calcium 40 MG Atorvastatin Calcium 40 MG 03/26/2019 12:00:00 AM EST 1.0 {tablet} activ e Atorvastatin Calcium 40 MG eCW1 ([facility]) atorvastatin 40 MG Oral Tablet Atorvastatin Calcium 40 MG Atorvastatin Calcium 40 MG 03/26/2019 12:00:00 AM EST 1.0 {tablet} activ e Atorvastatin Calcium 40 MG eCW1 ([facility]) atorvastatin 40 MG Oral Tablet Atorvastatin Calcium 40 MG Atorvastatin Calcium 40 MG 03/26/2019 12:00:00 AM EST 1.0 {tablet} activ e Atorvastatin Calcium 40 MG eCW1 ([facility]) atorvastatin 40 MG Oral Tablet Atorvastatin Calcium 40 MG Atorvastatin Calcium 40 MG 03/26/2019 12:00:00 AM EST 1.0 {tablet} activ e Atorvastatin Calcium 40 MG eCW1 ([facility]) atorvastatin 40 MG Oral Tablet Atorvastatin Calcium 40 MG Atorvastatin Calcium 40 MG 03/26/2019 12:00:00 AM EST 1.0 {tablet} activ e Atorvastatin Calcium 40 MG eCW1 ([facility]) atorvastatin 40 MG Oral Tablet Atorvastatin Calcium 40 MG Atorvastatin Calcium 40 MG 03/26/2019 12:00:00 AM EST 1.0 {tablet} activ e Atorvastatin Calcium 40 MG eCW1 ([facility]) atorvastatin 40 MG Oral Tablet Atorvastatin Calcium 40 MG Atorvastatin Calcium 40 MG 03/26/2019 12:00:00 AM EST active 1 tablet eCW1 ([facility]) atorvastatin 40 MG Oral Tablet Atorvastatin Calcium 40 MG Atorvastatin Calcium 40 MG 03/26/2019 12:00:00 AM EST 1.0 {tablet} activ e Atorvastatin Calcium 40 MG eCW1 ([facility]) atorvastatin 40 MG Oral Tablet Atorvastatin Calcium 40 MG Atorvastatin Calcium 40 MG 03/26/2019 12:00:00 AM EST 1.0 {tablet} activ e Atorvastatin Calcium 40 MG eCW1 ([facility]) atorvastatin 40 MG Oral Tablet Atorvastatin Calcium 40 MG Atorvastatin Calcium 40 MG 03/26/2019 12:00:00 AM EST 1.0 {tablet} activ e Atorvastatin Calcium 40 MG eCW1 ([facility]) atorvastatin 40 MG Oral Tablet Atorvastatin Calcium 40 MG Atorvastatin Calcium 40 MG 03/26/2019 12:00:00 AM EST 1.0 {tablet} activ e Atorvastatin Calcium 40 MG eCW1 ([facility]) atorvastatin 40 MG Oral Tablet Atorvastatin Calcium 40 MG Atorvastatin Calcium 40 MG 03/26/2019 12:00:00 AM EST 1.0 {tablet} activ e Atorvastatin Calcium 40 MG eCW1 ([facility]) atorvastatin 40 MG Oral Tablet Atorvastatin Calcium 40 MG Atorvastatin Calcium 40 MG 03/26/2019 12:00:00 AM EST 1.0 {tablet} activ e Atorvastatin Calcium 40 MG eCW1 ([facility]) atorvastatin 40 MG Oral Tablet Atorvastatin Calcium 40 MG Atorvastatin Calcium 40 MG 03/26/2019 12:00:00 AM EST 1.0 {tablet} activ e Atorvastatin Calcium 40 MG eCW1 ([facility]) atorvastatin 40 MG Oral Tablet Atorvastatin Calcium 40 MG Atorvastatin Calcium 40 MG 03/26/2019 12:00:00 AM EST 1.0 {tablet} activ e Atorvastatin Calcium 40 MG eCW1 ([facility]) atorvastatin 40 MG Oral Tablet Atorvastatin Calcium 40 MG Atorvastatin Calcium 40 MG 03/26/2019 12:00:00 AM EST 1.0 {tablet} activ e Atorvastatin Calcium 40 MG eCW1 ([facility]) atorvastatin 40 MG Oral Tablet Atorvastatin Calcium 40 MG Atorvastatin Calcium 40 MG 03/26/2019 12:00:00 AM EST 1.0 {tablet} activ e Atorvastatin Calcium 40 MG eCW1 ([facility]) atorvastatin 40 MG Oral Tablet Atorvastatin Calcium 40 MG Atorvastatin Calcium 40 MG 03/26/2019 12:00:00 AM EST 1.0 {tablet} activ e Atorvastatin Calcium 40 MG eCW1 ([facility]) atorvastatin 40 MG Oral Tablet Atorvastatin Calcium 40 MG Atorvastatin Calcium 40 MG 03/26/2019 12:00:00 AM EST 1.0 {tablet} activ e Atorvastatin Calcium 40 MG eCW1 ([facility]) atorvastatin 40 MG Oral Tablet Atorvastatin Calcium 40 MG Atorvastatin Calcium 40 MG 03/26/2019 12:00:00 AM EST 1.0 {tablet} activ e Atorvastatin Calcium 40 MG eCW1 ([facility]) Nystatin 544634 UNT/ML Topical Cream Nystatin 270046 U NIT/GM Nystatin 452358 UNIT/GM 03/26/2019 12:00:00 AM EST active 1 application eCW1 ([facility]) atorvastatin 40 MG Oral Tablet Atorvastatin Calcium 40 MG Atorvastatin Calcium 40 MG 03/26/2019 12:00:00 AM EST 1.0 {tablet} activ e Atorvastatin Calcium 40 MG eCW1 ([facility]) atorvastatin 40 MG Oral Tablet Atorvastatin Calcium 40 MG Atorvastatin Calcium 40 MG 03/26/2019 12:00:00 AM EST 1.0 {tablet} activ e Atorvastatin Calcium 40 MG eCW1 ([facility]) atorvastatin 40 MG Oral Tablet Atorvastatin Calcium 40 MG Atorvastatin Calcium 40 MG 03/26/2019 12:00:00 AM EST active 1 tablet eCW1 ([facility]) atorvastatin 40 MG Oral Tablet Atorvastatin Calcium 40 MG Atorvastatin Calcium 40 MG 03/26/2019 12:00:00 AM EST 1.0 {tablet} activ e Atorvastatin Calcium 40 MG eCW1 ([facility]) Acetaminophen 325 MG / Oxycodone Hydroch loride 10 MG Oral Tablet [Percocet] Percocet 10-325 MG Percocet 10-325 MG 03/25/2019 12:00:00 AM EST active 1 tablet as needed eCW1 ([facility]) Morphine Sulfate 15 MG Extended Release Oral Tablet Mo rphine Sulfate ER 15 MG Morphine Sulfate ER 15 MG 03/10/2019 12:00:00 AM EST active 1 to 2 as directed eCW1 ([facility]) Morphine Sulfate 15 MG Extended Release Oral Tablet Mo rphine Sulfate ER 15 MG Morphine Sulfate ER 15 MG 03/10/2019 12:00:00 AM EST active 1 to 2 as directed eCW1 ([facility]) Morphine Sulfate 15 MG Extended Release Oral Tablet Mo rphine Sulfate ER 15 MG Morphine Sulfate ER 15 MG 03/10/2019 12:00:00 AM EST active 1 to 2 as directed eCW1 ([facility]) 15 mg 03/10/2019 12:00:00 AM EST tablet extended release 90 TAKE 1 TABLET BY MOUTH IN THE MORNING AND 2 AT BEDTIME MAXIMUM DAILY DOSE = 3 TAKE 1 TABLET BY MOUTH IN THE MORNING AND 2 AT BEDTIME MAXIMUM DAILY DOSE = 3 SOLD: 03/13/2019 [facility] Morphine Sulfate 15 MG Extended Release Oral Tablet Mo rphine Sulfate ER 15 MG Morphine Sulfate ER 15 MG 03/10/2019 12:00:00 AM EST active 1 to 2 as directed eCW1 ([facility]) Morphine Sulfate 15 MG Extended Release Oral Tablet Mo rphine Sulfate ER 15 MG Morphine Sulfate ER 15 MG 03/10/2019 12:00:00 AM EST active 1 to 2 as directed eCW1 ([facility]) 5 mg 03/05/2019 12:00:00 AM EST tablet 60 TAKE ONE TABLET BY MOUTH EVERY 12 HOURS NEEDED FOR ANXIETY MAXIMUM DAILY DOSE = 2 TABLETS TAKE ONE TABLET BY MOUTH EVERY 12 HOURS NEEDED FOR ANXIETY MAXIMUM DAILY DOSE = 2 TABLETS SOLD: 03/05/2019 [facility] Diazepam 5 MG Oral Tablet diazePAM 5 MG Oral Tablet (V ALIUM) diazePAM 5 MG Oral Tablet (VALIUM) 03/05/2019 12:00:00 AM EST 5 mg Oral ac tive Take 1 tablet by mouth every 12 (twelve) hours as needed for Anxiety, Max Daily Dose: 10 mg [facility] 300 mg 02/24/2019 12:00:00 AM EST capsule 60 TAKE ONE CAPSULE BY MOUTH TWICE A DAY MAXIMUM DAILY DOSE = 2 CAPSULES TAKE ONE CAPSULE BY MOUTH TWICE A DAY MAXIMUM DAILY DOSE = 2 CAPSULES SOLD: 02/25/2019 [facility] 300 mg 02/24/2019 12:00:00 AM EST [...] active 1 tablet as needed eCW1 ([facility]) Acetaminophen 325 MG / Oxycodone Hydroch loride 10 MG Oral Tablet [Percocet] Percocet 10-325 MG Percocet 10-325 MG 02/17/2019 12:00:00 AM EST active 1 tablet as needed eCW1 ([facility]) Acetaminophen 325 MG / Oxycodone Hydroch loride 10 MG Oral Tablet [Percocet] Percocet 10-325 MG Percocet 10-325 MG 02/17/2019 12:00:00 AM EST active 1 tablet as needed eCW1 ([facility]) Acetaminophen 325 MG / Oxycodone Hydroch loride 10 MG Oral Tablet [Percocet] Percocet 10-325 MG Percocet 10-325 MG 02/17/2019 12:00:00 AM EST active 1 tablet as needed eCW1 ([facility]) Acetaminophen 325 MG / Oxycodone Hydroch loride 10 MG Oral Tablet [Percocet] Percocet 10-325 MG Percocet 10-325 MG 02/17/2019 12:00:00 AM EST active 1 tablet as needed eCW1 ([facility]) Acetaminophen 325 MG / Oxycodone Hydroch loride 10 MG Oral Tablet [Percocet] Percocet 10-325 MG Percocet 10-325 MG 02/17/2019 12:00:00 AM EST active 1 tablet as needed eCW1 ([facility]) Acetaminophen 325 MG / Oxycodone Hydroch loride 10 MG Oral Tablet [Percocet] Percocet 10-325 MG Percocet 10-325 MG 02/17/2019 12:00:00 AM EST active 1 tablet as needed eCW1 ([facility]) Percocet 10-325 MG UNK 02/17/2019 12:00:00 AM EST active 1 tablet as needed eCW1 ([facility]) Amitriptyline Hydrochloride 25 MG Oral [...] active 1 to 2 as directed eCW1 ([facility]) Morphine Sulfate 15 MG Extended Release Oral Tablet Mo rphine Sulfate ER 15 MG Morphine Sulfate ER 15 MG 02/12/2019 12:00:00 AM EST active 1 to 2 as directed eCW1 ([facility]) Morphine Sulfate ER 15 MG UNK 02/12/2019 12:00:00 AM EST active 1 to 2 as directed eCW1 ([facility]) duloxetine 30 MG Delayed Release Oral Ca psule DULoxetine HCl 30 MG Oral Capsule Delayed Release Particles (CYMBALTA) DULoxetine HCl 30 MG Oral Capsule [place] d Release Particles (CYMBALTA) 12/30/2018 12:00:00 AM EST aborted [facility] Carisoprodol 350 MG Oral Tablet [...] DAILY DOSE = 3 TABLETS SOLD: 04/04/2019 [facility] Losartan Potassium 25 MG Oral Tablet losartan (COZAAR) 25 MG tablet losartan (COZAAR) 25 MG tablet 05/14/2018 12:00:00 AM EDT 25 mg Oral aborted Take 25 mg by mouth daily [facility] Propranolol Hydrochloride 20 MG Oral Tablet propranolo l (INDERAL) 20 MG tablet propranolol (INDERAL) 20 MG tablet 01/13/2018 12:00:00 AM EST aborted TAKE ONE TABLET BY MOUTH EVERY DAY ON EM PTY STOMACH [facility] Oxycodone Hydrochloride 5 MG Oral Tablet oxyCODONE (ROXICODONE) 5 MG immediate release tablet oxyCODONE (ROXICODONE) 5 MG immediate release tablet 0 06/25/2017 12:00:00 AM EDT aborted Take 1 PO q4h prn pain, MDD = 6 [facility] Insurance Providers Payer name Policy type / Coverage type Policy ID Covered libertarian ID Covered libertarian's relationship to daly Policy Daly Plan Information MEDICARE [id number] SP [id number] MEDICARE [id number] SP [id number] [id number] EXCELLUS BC-BS PPO 306 [id number] SP [id number] [place]LL[employer] BC-BS PPO 306 [id number] SP [id number] MEDICARE C [id number] S [id number] [id number] [place]/307 [id number] SP [id number] [place]/307 [id number] SP [id number] [place]LL[place] BC-BS PPO 306 [id number] SP [id number] EXCELLUS BCBS B [id number] S [id number] [id number] TRAVELERS WC W [id number] Empl [id number] [place] 220/720 [id number] SP [id number] BCBS FEDERAL EMPLOYEE PROGRAM [id number] SP [id number] [place]/307 [id number] SP [id number] [place]/307 [id number] SP [id number] EXCELLUS H [id number] Self [id number] 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 [id number] SP [id number] TRAVELERS-WC WCB# [id number] SP WCB # [id number] [place]/307 [id number] SP [id number] 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 [id number] SP [id number] EXCELLUS BCBS B [id number] S [id number] [id number] 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 WCB# [id number] WCB# [id number] 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 [id number] SP [id number] TRAVELERS-WC WCB# [id number] SP WCB # [id number] 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 [id number] SP [id number] 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 [id number] SP [id number] OTHER WORKERS COMPENSATI O [id number] S [id number] TRAVELERS WC W [id number] Empl [id number] ANSI-Commercial lrycn344-z904-05x2-o8m1-[id number] txcbi998-o124-31r8-f4d0-e9175v24h683 ANSI-Not a Secondary Insurance rfld8202-2r83-1af0-hqv6-gkjm2 ug58h13 ovrw8148-6e09-6rl7-gou4-dbmb8ww97o14 ANSI-Not a Secondary Insurance 68385v94-id29-0952-sb1d-y786q b93mtl3 80518x84-ez93-0020-vz8y-j716hl73akc8 ANSI-Commercial 1752pbw8-n94e-9851-g1x0-6239o3lj9209 4839mgx3-w57i-0997-r2e6-3458s0vl4174 ANSI-Not a Secondary Insurance 11k1f70f-2o2i-55y7-z0eh-m044n s2e7k1x 89d7r34o-7f1m-34h9-d8ww-r463nw2g4c9y ANSI-Commercial z0qnho59-2220-89t4-o808-76129334tsld s7zcjv98-9336-25r4-h220-99910453xjrq ANSI-Commercial 2u01q49i-7j2v-0k2f-0l81-3p03266j7s96 2c24v64m-6u4y-5b3g-2f57-3k58234b4f36 ANSI-Not a Secondary Insurance r5j11g71-0um7-9p33-1763-h0969 q8w9pw9 q0u21y74-3ia5-9v55-9282-e6969i9x4tr8 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 B# [id number] SP B# [id number] ANSI-Commercial 7890e8y5-8m58-8734-bqbi-i79zl7q8590o 9404a1f0-1c65-1827-gmum-f22ta1a9268t ANSI-Not a Secondary Insurance 2nq30yv7-09z2-396s-b3h4-d89yh 9e93qyx 8qt92vx4-64y0-305m-w8v6-x44ow0r23epx ANSI-Commercial t348yn64-9lh2-359q-vz33-691e29b95xav u509fd56-8yc3-040d-lo67-141x33x47hco ANSI-Not a Secondary Insurance v397u573-372w-839l-9826-86i88 2yt7vr9 q381s784-782y-127w-2069-88b205ae7ba3 ANSI-Not a Secondary Insurance 11d95s1i-a840-51f4-c680-42342 7vxo3o8 23t09v0n-f660-33s7-z390-501513dkp4d5 ANSI-Commercial 91718545-22j8-86n9-i025-1s950w37622k 03509024-43i2-74y7-z456-6d238m16007b ANSI-Commercial u44blhp7-6x2p-4xk4-a359-427asnb4a05u e09cdkz1-7m6v-3ca6-o465-861mceh4u80y ANSI-Not a Secondary Insurance hm22u7q0-4r63-1873-8358-i062h 98j1if0 je17q2m6-2y76-2136-7731-m058q14m1ev9 ANSI-Commercial 35n82hb6-3y98-7lvs-7891-m0hpio11uj80 30p15ti9-2w86-0idj-7169-x3huaa92xf98 ANSI-Not a Secondary Insurance 5a57n586-86z8-23go-gi84-ox7l9 0464x0k 0q97g790-41a2-66fx-mi47-mm9l08177y5x ANSI-Commercial 7f569i45-n56m-25g1-7sb4-57om8p36626w 1t591z66-l26f-01g3-0vm7-18pe9f83766e ANSI-Not a Secondary Insurance 64d3tzc1-99t7-483o-e175-6c1t3 fln1d2l 41a0ydi6-07a1-538a-w012-3f5i7gqy5y6p ANSI-Not a Secondary Insurance 219ym479-p389-394h-e76d-9u59b cnrp4l8 275my204-r492-243p-h33z-5t79xddgs3i4 ANSI-Commercial 2u9714hp-dvw9-6232-dp13-b4q9b6ps9142 9g0635zi-qzb6-7852-wt94-s4i8p2ij1034 EXCELL BC-BS PPO 306 [id number] SP [id number] ANSI-Not a Secondary Insurance 468153la-oec1-793m-ko06-pod89 26y717r 029321wh-djk5-006u-wc12-did6012r892f ANSI-Commercial 900hrq67-hzo8-8ke7-8iwg-69m2h3857mnq 008kyb98-rur6-2tc3-1tri-25e0v4155dwv ANSI-Not a Secondary Insurance t33m09g9-4z96-71r4-8xa1-v53r3 a8hu9r7 u40l50a1-7d58-41n1-5um0-e02q9r9nr2f2 ANSI-Commercial 16934ysm-9413-5hd7-5kq5-6je0l8693m71 63943chb-4223-7ce6-5sw5-9yg7k6045m60 ANSI-Commercial 6r93w1c6-907t-9049-y3y7-z00t13o26d4t 7h53q0w7-298f-3290-y4x3-s96y29g72w9b ANSI-Not a Secondary Insurance qv4y1c8c-3107-5c5y-12f2-1abli 48s9562 nd0g3s7w-5191-1f2b-73i3-6ukto91g3733 ANSI-Commercial r9i63n66-u0x1-689d-cj2r-80mp894773m1 d7p68s03-x5a0-850x-rj3w-32lb488538q4 ANSI-Not a Secondary Insurance 10a1sxq6-gn78-7068-s906-58q2o 8yv98q5 15l3gxv1-nf11-1695-f208-99x2t2cq70q3 ANSI-Not a Secondary Insurance p0299679-n792-90n6-6mu0-kw7c0 q11l250 g4431079-v840-25d4-2ak6-gu7w8x56v287 ANSI-Commercial 4su8x5y1-097d-0f86-x8kz-91r0y7193b66 9uk6t1z6-898r-3t28-j6af-68o1m7621r43 ANSI-Not a Secondary Insurance 9tvcm85g-h9h5-928t-p3j7-nhd3r 599n2oz 1tkdx91e-r8w3-702k-t7z9-hbm1i309r9fc ANSI-Commercial 05zr1ofr-58i3-0898-3745-o80voo6qb707 70di9gds-03i5-5714-1189-e58ppi5ur882 ANSI-Not a Secondary Insurance r20v24ee-k20o-5iih-2v45-v8484 r0s1dj1 a05p01am-c01d-7ojl-5s09-s9306h7l0nr9 ANSI-Commercial 4a38a9da-1l15-9184-w452-0d7029w5by27 6r49z0mf-3r42-2308-r105-9u2742u6dr28 ANSI-Commercial e61zk842-2k4z-481c-z0n2-5t981r407b30 q05am460-5s6n-909b-a8o2-9r367c286j02 ANSI-Not a Secondary Insurance 9qpuaj0x-a786-710e-r9k7-zg71h 8r7k4m3 1ukehp0h-c953-957h-h7e4-mx36e1j7f6f4 ANSI-Not a Secondary Insurance xi7pb917-u8a2-4182-m3b7-73120 kg3i03i bu9yj151-o7x4-1997-p3j6-76232gr5j93j ANSI-Commercial 6896n6v8-01wh-7913-4a3e-71es908ga9l1 0412p4x7-48ds-9201-1j6k-43fj094bf8e6 ANSI-Commercial 823v7s76-tk95-74s8-xd7o-9sm7rsxm0bh3 365t5d74-mn57-87m1-pv2z-6xb4zzsp6gf7 ANSI-Not a Secondary Insurance 226303n6-s5x0-5fbv-p82v-hq0l5 2418o1t 417966t4-b4d6-0ash-r96o-ch1v69881o1a ANSI-Commercial 7h3j1qd8-651x-3q00-7528-094t115s41d8 4s2e3jy3-527c-6u58-9950-059y380v97l4 ANSI-Not a Secondary Insurance w468805z-4y10-4p80-40j1-6cre1 1u37591 c094241e-8s84-4x24-63g8-5cyi47o14167 ANSI-Not a Secondary Insurance hy8e8eyc-3i2c-95lk-k9e3-s61g6 ay059t6 ac6i1ojb-1p9r-29ft-e7g8-v16h1hq225j4 ANSI-Commercial -q6g6-15r7-1zvt-s75f506h08i1 aympd968-m7k2-86g8-0lcy-x57e097b54s8 ANSI-Commercial 787333q5-33c7-3vm6-1182-686e03lj1g1l 771865t3-09f7-5mw6-2928-600r12vf8j1i ANSI-Not a Secondary Insurance 849e7g7q-6k45-0104-343f-j277t we8rue2 401u4i0x-3h45-0620-450a-h635bye1juw2 ANSI-Not a Secondary Insurance 124q022a-01lh-4fpl-4s3t-0o551 x2e91m7 917x879z-22of-1axl-9u9v-6q058f9e85f0 ANSI-Commercial l3ce0384-73z8-54y3-49z3-8a84597yuj91 p8zl8779-00z3-10n0-17d5-5m92372voa79 ANSI-Commercial h078377h-30xk-7357-7d93-05kf6c3z24jx k449899r-30wl-4062-0x23-92cy1j0t93eo ANSI-Not a Secondary Insurance 5g1h1780-o3t8-5by5-w11m-1of91 8zr8a30 6k0x9554-j1z2-5xr1-u19e-1pt915pq3y05 ANSI-Commercial 047d47x1-4tfs-58i3-n20s-9drg7693u216 566a98a8-6xyr-96l9-c62d-0pcd5494m706 ANSI-Not a Secondary Insurance l1y4056d-5ja5-372k-2sj3-25lsu 1d45pjh p0i4924k-0jn9-091f-3jh2-27feg0m25jvr ANSI-Commercial 8puo860y-g387-78t0-e879-85f615072835 7kid230u-b684-62y3-i189-86v695203460 ANSI-Not a Secondary Insurance 9y35rq26-p904-1133-1658-173g9 981h4i6 1z38ha93-e129-7069-0983-832h0780m2x6 ANSI-Commercial 39xx4xv1-1x60-8gi5-1165-0lrf1m5508um 66yh2wg8-9z58-6hv4-3674-2dfe9e0098vk ANSI-Not a Secondary Insurance 62ql8767-25k8-04nb-y018-b355d d4294t5 17ms7003-82f5-02yy-i458-l447td4476j9 ANSI-Commercial o2z66269-9fl5-2721-3u99-5kz97184o25p n2g82426-8fc0-6547-2l55-1ea96005g69o ANSI-Not a Secondary Insurance w195j948-ai78-5zxl-628s-9t283 qbl2a7z h207e697-yo43-4zsz-119u-2k271xeg0w5c ANSI-Commercial 3ub5om34-h3u7-64oz-j58y-05b6594fj1js 9nl9ao46-n9o1-64yw-i74a-67m6288sp7hk ANSI-Not a Secondary Insurance 3t86z2xs-3m82-5j92-45i5-o18m7 3oujw21 6s75u1xh-6p83-7c52-55o7-z43f45oiai54 ANSI-Not a Secondary Insurance 3nhcd6j5-1l61-6wd5-ze2v-458j8 978b6q8 8wayn6z6-6o25-8ig1-uy6h-237h7108m7u5 ANSI-Commercial d688i2qz-71e1-940p-2518-o9po5y2sc4x2 e205a8rn-94f6-985f-4030-o6qt5b4ez8g0 ANSI-Commercial p0d5w521-6707-67g3-36fo-4v92s2qi684v t2r3i554-8660-18j2-29xs-8l76z7vj322v ANSI-Not a Secondary Insurance 0870q919-2104-7v15-7jif-z7w72 y1869wh 5369u535-2285-0m26-5rle-p1c64z9292sc ANSI-Commercial 96535183-g832-7542-jw47-tun9s0029414 80064804-n007-4768-wa32-vlu7p4148529 ANSI-Not a Secondary Insurance 45d190kv-y533-34uf-z6dt-7ml83 1feaaac 57b443ly-x564-68iz-z7se-1xm089xekjgy ANSI-Not a Secondary Insurance 01r23a36-f9fp-7774-6mp4-1113v 13555d4 60o12o10-h0zj-8184-1om1-6357p55602t1 ANSI-Commercial 17l8x5v5-336a-5h90-68sl-537ebr8zb991 22w4t8j7-959e-2g94-06lt-208dpr5sq811 ANSI-Not a Secondary Insurance 24yi2qep-fl87-6788-yv0m-7k6a6 1u7r67p 75ua0fsy-ox47-3565-ch2e-9g7j83n4n46n ANSI-Commercial 0n3x6nb9-32q9-22mp-cn37-884217tp5b2b 7z6z5vw8-26k2-08vh-bo71-959758fm2a3w ANSI-Commercial rdl86961-mq53-7z29-9658-6x06yfdwlc68 pjt98967-nj51-6u15-1174-3q11qfmdia54 ANSI-Not a Secondary Insurance s15y2ej6-5j9c-27x8-x5yc-spb79 568437e s78h4pe4-0a7x-35w4-m8zv-zjq10570786s ANSI-Not a Secondary Insurance xs1362im-15p6-0p75-2ulp-22324 4032001 nd8223xb-45h4-7u73-8gfd-110301145757 ANSI-Commercial p8m3w945-3a11-1651-o835-2v33o5z852rj b0x1n430-3s06-5170-g287-6t41t8o354pp ANSI-Not a Secondary Insurance 1u4hh0c2-9593-1617-403h-927br g16530i 1e6oc6b6-2236-0126-034e-466fqp87645h ANSI-Commercial 329g753x-0651-5855-505e-37b481ozx0h8 992x331p-5496-3197-239f-80d866mmr7i4 ANSI-Not a Secondary Insurance 80659107-n27h-7mn3-uj3s-3l99m 0s61nz4 36340132-b58j-1nb7-ui8x-6v36t7m10sg1 ANSI-Commercial g420y622-c5d0-0pa1-29q5-6bd27k498fc2 u122h902-p1i5-8xv8-11i5-0wh59e980ut3 ANSI-Not a Secondary Insurance b90b3m0d-14k8-941e-h8l6-97320 w58jf1l d59k3f3e-11b2-873q-e8y5-77917y77xf7s ANSI-Commercial 0f1xu6u6-b2w2-1138-el38-pa147485g8ho 7o8ek4f7-b9q9-7798-mt59-nj214449b5yz ANSI-Commercial 8day972e-k4p4-05im-pj08-z9rtkcuo5490 6iek317s-z6u8-68yd-dk88-t6yxubfm2291 ANSI-Not a Secondary Insurance 84994823-z187-6554-iil3-2q42g ep503d6 75635949-j975-3762-hpy8-8c42fem993y8 ANSI-Not a Secondary Insurance 2681xdi3-vzvs-28z7-7087-h5lj0 6w373v6 7975cge7-qvus-96q1-5744-k3pk05f248w7 ANSI-Commercial w2ux28k7-344c-56c6-z3k8-284128911203 f5tp80y6-620k-52c4-a0p9-963359402103 ANSI-Not a Secondary Insurance 1509plr8-2dbj-97f8-6o0v-5g4t1 60o6926 9162ovx7-8cxn-87k8-3l7w-5l1i702v3401 ANSI-Commercial iu2igfd0-7qfw-33zt-takd-135p5lx2hp67 dl5uxwm1-5hfz-93dj-ptdf-496i4nj9xk47 ANSI-Commercial b62d4340-85m4-405d-02xw-16o5ra3v8814 f96z9720-46y7-229f-15hn-70j6yn0z7013 ANSI-Not a Secondary Insurance n10j7b0x-veam-47qj-8f6z-t3gf1 9k7y035 j90u4p3r-igdm-21jp-3k3y-f4qk12c1a533 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 O [id number] O [id number] ANSI-Not a Secondary Insurance 54gq2657-02g2-5w2d-z2f0-0nmv2 w441464 39ky5142-49w5-2t0z-m6q1-5fuf2s894323 ANSI-Commercial mcs2q629-xidf-0g75-004e-094765552kv4 coi3l250-hget-1o72-966y-861079230tg8 ANSI-Not a Secondary Insurance 36n6io2p-4g43-066u-2uc0-0tl5r 2onm718 58k9bz4i-4o47-493s-5zj5-2wn7y0avi786 ANSI-Commercial 027mz0v6-f497-8879-833w-59169m4pjb00 443hg7a9-o574-2392-315c-27471k3lpo96 ANSI-Commercial e321u462-i1np-75f2-q74b-n5z62629xnx6 v219f490-q7xc-57u1-l03r-l4h40509lvx1 ANSI-Not a Secondary Insurance qy1r2tt9-x148-2052-6ah7-16w71 92z8wva rw3t3dl8-j856-1903-0sn0-48s2075h9eqd ANSI-Commercial s077g00f-2412-4g20-c9j3-7ca2yk5953y3 k660r00h-2605-5r92-f7d9-8yc8uo2864b3 ANSI-Not a Secondary Insurance 02t2gt5c-u7r5-762t-8k6h-56sb2 5564393 86m8uc5n-u2x4-823z-9w3h-21rc61477307 ANSI-Commercial 468iw463-6992-5983-ke8c-h51412h9qp87 347sr144-4937-2721-cs5y-r97152j6sc78 ANSI-Not a Secondary Insurance 10754xdt-5jbg-222p-00l4-0f98k wqq6as8 57635ufi-3kku-477x-22i2-3x95jdaa8fm3 ANSI-Commercial 2p66p63a-j97y-8qg2-636p-4i427e9a2809 5y51u96v-w66i-2wx0-757q-9e587v7p1667 ANSI-Not a Secondary Insurance 260n3405-4l31-56wy-e8qt-16t33 489ebec 956j2040-6t48-26gz-j4gv-80w34827rwgv ANSI-Not a Secondary Insurance 31661741-r0r8-2ii2-uh0v-9m516 c8q582p 17965259-r7o6-1rq4-um7c-9d897f2i330s ANSI-Commercial 0ies54gg-4td6-960d-rh79-997038q7d7qh 7mwb44gz-1un3-386o-bb97-434077i9w8or ANSI-Not a Secondary Insurance 5m53c612-nd43-431c-0l94-73gtg 7u08m9q 4u32c768-im00-774h-8a80-47sik5c65n3q ANSI-Commercial dpr5388o-r093-32cl-3nc5-m84jlrdp7u8h yds6461e-p800-56ov-2lh0-o70dospk2y3j ANSI-Commercial 35wd7469-3s7a-6bnn-qi8u-o6c2c1c5b7qh 40sp1752-1n9a-2ejz-bd6f-n7i0c0k2y1kx ANSI-Not a Secondary Insurance 8h3zj933-0x4h-700g-8f55-8i8h6 3a87472 9w2zn820-2r5u-956s-4c88-7v2w21o73906 ANSI-Commercial 30kw9q73-0431-3gb6-2l8j-0187k53sv779 95ui3m02-8355-2fp1-0d2c-5740q59br407 ANSI-Not a Secondary Insurance w6oa91y5-hes6-8e9k-b268-nb5oy 0imj5hl v8jv95i5-hgl6-4u8j-o178-co3xh7oyi0gq ANSI-Commercial 1u2r25dz-5ngc-371g-rg5v-34x5547y5c8j 2z8s30wb-7dcx-381f-rd6u-36q8458h7e6t ANSI-Not a Secondary Insurance 3016030y-990p-1233-6m29-ya8x5 466wt77 7787506w-474e-5853-8e53-vg5o6844uz66 ANSI-Commercial gnl98z93-6e2a-61p3-a898-qthhqze94m63 vxg33f43-4f9b-30k2-x981-berbhgx48l27 ANSI-Not a Secondary Insurance 5r268zfa-2d11-2fdh-h190-0u512 234c958 4u464mal-6o05-6vqb-f074-4j115850j571 ANSI-Not a Secondary Insurance 4g1ugidl-6ezt-5j5d-f7g7-m47gi 2500051 9m8jdkoc-5txc-9u9v-p1j6-d55wg5511079 ANSI-Commercial 974z9e9h-522e-9q08-d85h-8053494d13n9 446f9a7l-150f-2c89-p98q-5779974p61r1 ANSI-Not a Secondary Insurance 0a6x2d8k-a914-70ve-95h1-0918m 27xza02 5u6v7b5p-t171-65sz-12x6-5282f36csq69 ANSI-Commercial 9224690y-u31t-8681-1edb-7195y8ia1k3m 0594188q-t15t-5415-4rjt-0429d1gy1h8i ANSI-Commercial ss7i423b-4lb8-6ec3-6e73-x9s05yq734u7 mm5t315l-8gc4-5qh4-3w90-f5q37mp972u8 ANSI-Not a Secondary Insurance 12l43ka1-5u1m-3pj3-6v21-w2o5y cezb060 86j13co8-6q1o-0sn9-7o51-y0b5zdtpx660 ANSI-Not a Secondary Insurance 6948dg62-07f8-485s-3502-0s72n j96105o 9682wq09-65e9-407c-0511-6p84xy23134w ANSI-Commercial 36l1v1g7-4180-3k49-cj85-qc10i3749817 52m3m2v1-4124-9v82-cy16-sl48u9356334 ANSI-Not a Secondary Insurance 001gq38f-05fs-2u8m-8j42-2n47q 1t9k9v2 728fn34y-49yt-8h2h-5r34-5o49j9g8r5q7 ANSI-Commercial 8t60925r-3567-5762-m880-t2x4vkht5qq6 2i22897p-8858-5162-i442-s9b0ntfw6an5 EXCELLUS BCBS B [id number] S MMF [id number] ANSI-Commercial 14rey85r-7108-8958-2488-5fm1ih6n6090 26rsj07q-1033-5233-1051-4sp2aq8b2717 ANSI-Not a Secondary Insurance e1021dnu-5p10-0310-5xr4-s100k 1gfu77f o4215hry-5m88-8078-7br8-v283r3lln83n ANSI-Not a Secondary Insurance 55n50426-88h3-0296-91t5-69722 c1senz7 [id number]87u7svxo1 ANSI-Commercial sv27c6jg-260q-96q6-72r2-j24khxsja38s yf91m8xp-234h-72k2-39t4-q85qxuwtv19w ANSI-Not a Secondary Insurance vly7707r-5d76-3125-e7p3-v4011 9i52ngw sdy2571w-6w87-6666-k7i2-z03272i17ljb ANSI-Commercial 441f750s-5d3f-157w-iq3o-04j35gd09vn6 948w903n-3d6t-190n-tb0e-67t39sv83eg0 ANSI-Not a Secondary Insurance l010mgqi-ze4q-948d-9x43-78l0p 5mj09p0 g422ckog-iz0g-472h-4n73-20t4o9xs13y3 ANSI-Commercial t86bg1o1-aeae-858y-qup5-z841238470b4 a44zt7q5-nqdx-767u-lfl9-m541765443n6 ANSI-Not a Secondary Insurance p672dqc9-04hb-98f1-ft3o-56649 4xyjs5c h279alm5-80go-77q3-jd3g-109270orpv7w ANSI-Commercial hq7di61a-5eq4-9852-v486-9hsj0137760h cy8gx57l-4pf1-0620-s853-9mbz4304368e ANSI-Commercial 201842p6-1z42-22tm-5q89-fo43s773z8p0 613181x3-5y22-49kf-0r66-ef94w638g9x4 ANSI-Not a Secondary Insurance [id number]-1c07-203x-9a9u-73784 3958a1h 136d80wz-7k95-522a-4a9i-643232452p4k ANSI-Not a Secondary Insurance cc594336-f060-53xk-f180-107ac 59n801z ap982793-e729-69yv-m944-574ae26k523g ANSI-Commercial umy52j82-2097-77c1-bk60-[id number] owl43i29-0923-90a5-vd88-mgs13c885629 ANSI-Not a Secondary Insurance u90q26oc-f60q-248m-950a-8h542 b8h7049 w84d03fu-e35p-045d-006y-8x909w2v6244 ANSI-Commercial ibm04xs2-ns55-2858-44gx-546a41l868x3 oxd30rw4-et21-3322-47xy-586k99e985x6 ANSI-Commercial vj6f0kmh-q1li-7372-84y6-nh1y1w036x8z fw3l2gsz-q8hp-4859-46y5-cn1n1u966c1f ANSI-Not a Secondary Insurance [id number]-4897-v4j2-041nx 8k6w9c1 630p0780-751r-7777-u6g4-727cn8o9k5j4 TRAVELERS- [id number] SP [id number] ANSI-Not a Secondary Insurance d8p879z8-ve6p-3m22-4452-45k6w 58a728r j6o704g6-xt3d-5j15-5773-93o9w27p322n ANSI-Commercial [id number]-049t-56xt-emt8-odp42m8f5j91 6879296b-046k-24uw-ged0-phs39t7w7l12 ANSI-Commercial qhg1r414-02j0-0rpp-w3eh-w6w67r8134yp iqz2f016-00h5-5pwl-k3bw-k9o51q0810ov ANSI-Not a Secondary Insurance [id number]-56t0-8872j s529ei9 u2o04947-3d94-312b-66l6-1652te943ih1 ANSI-Not a Secondary Insurance [id number]-3912-0e77k 40r263m 36w04835-8253-229e-5349-9i68p49h775w ANSI-Commercial 3xfgo281-[id number] [id number]-i090-2231-3969-9751296kf779 OTHER WORKERS COMPENSATI O WCB#[id number] S WCB#[id number] ANSI-Not a Secondary Insurance [id number] 0756ebf [id number]-d9f5-7n25-[id number] ANSI-Commercial 70024r19-u8u0-2x38-623z-[id number]-g2i6-1p21-800r-[id number] ANSI-Commercial [id number]-g0au-64k8-82bm-yx4r9huc9437 [id number]-e3sa-44u6-54xj-fk3n6vga3176 ANSI-Not a Secondary Insurance [id number]-[id number] 72gx5k2 95x0jl16-2v0p-2005-2797-1493o46ht7b1 OTHER WORKERS COMPENSATI O WCB#[id number] S WCB#[id number] TRAVELERS-WC WCB# [id number] SP WCB # [id number] 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 [id number] BS [place] Medigap Part B [id number] Self [id number] Travelers Insurance (WC) Workers Compensation [id number] Self [id number] 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 [id number] SP [id number] 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 [id number] SP [id number] [place] P[place] 302/307 [id number] SP [id number] [place] 302/307 [id number] SP [id number] [place] 302/307 [id number] SP [id number] BS Of [place] [facility] ([facility]) Self [place] BCBS B [id number] S [id number] [id number] BCBS [place] 304/804 [id number] SP [id number] EXCELLUS H [id number] Self [id number] BLUE CROSS BLUE SHIELD-CLINIC [id number] 18 [id number] BCBS [place] 304/804 [id number] SP [id number] SELF PAY 5 UNAVAILABLE 1 UNAVAILA BLE BLUE CROSS BLUE SHIELD-O/P [id number] BCBS [place] 306/8 P [id number] S [id number] Problems, Conditions, and Diagnoses Code Display Name Description Problem Type Effective Dates Data Source(s) F51.01 3212201 Primary insomnia Problem 01/28/2020 12:00:00 AM EST eCW1 ([facility]) F41.0 455330367 Panic disorder Problem 12/24/2019 12:00:00 A M EST eCW1 ([facility]) F41.9 37191599 Anxiety Problem 12/23/2019 12:00:00 AM ES T eCW1 ([facility]) 00445327 Cervical radiculopathy Cervical radiculopathy Problem 08/26/2019 12:00:00 AM EDT MEDENT ([facility], ) 532649169 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 Problem 08/26/2019 12:00:00 AM EDT MEDENT ([facility], ) 03735254 Neck pain Neck pain Problem 08/26/2019 12:00:00 AM ED T MEDENT ([facility], ) 606510583 Essential tremor Essential tremor Problem 08/26/2019 12 :00:00 AM EDT MEDENT ([facility], ) R25.1 626031545 Tremor of both hands Problem 08/25/2019 12:0 0:00 AM EDT eCW1 ([facility]) F41.9 86674447 Anxiety Problem 08/04/2019 12:00:00 AM ED T eCW1 ([facility]) M46.1 [id number] Bilateral sacroiliitis Problem 05/28/2019 12:00:00 AM EDT eCW1 ([facility]) M54.5 530687857 Low back pain Problem 05/28/2019 12:00:00 AM EDT eCW1 ([facility]) M54.5 154108013 Low back pain Problem 05/28/2019 12:00:00 AM EDT eCW1 ([facility]) M46.1 [id number] Bilateral sacroiliitis Problem 05/28/2019 12:00:00 AM EDT eCW1 ([facility]) M46.1 79196169 Sacroiliitis Problem 04/21/2019 12:00:00 AM EDT eCW1 ([facility]) E78.00 036063891 Pure hypercholesterolemia Problem 03/26/2019 12:00:00 AM EST eCW1 ([facility]) J44.9 87637371 Chronic obstructive pulmonary di sease, unspecified COPD type Problem 03/26/2019 12:00:00 AM EST eCW1 ([facility]) E78.00 867835158 Pure hypercholesterolemia Problem 03/26/2019 12:00:00 AM EST eCW1 ([facility]) J44.9 52164284 Chronic obstructive pulmonary di sease, unspecified COPD type Problem 03/26/2019 12:00:00 AM EST eCW1 ([facility]) M75.41 Impingement syndrome of right shoulder I mpingement syndrome of right shoulder Diagnosis 04/01/2019 10:41:11 AM [facility] 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, 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, right upper limb Diagnosis 04/01/2019 10:41:11 AM [facility] Surgeries/Procedures Procedure Description Date Indications Data Source(s) Immunization: Flublok Quadrivalent (18 years & older) 0.5mL IM (Influenza) 01/15/2020 12:00:00 AM EST eCW1 ([facility]) INJ TRIGGER POINT 02/12 MUSCL 06/24/2019 12:00:00 AM EDT eCW1 ([facility]) PHYSICIAN TELEPHONE EVALUATION 11-20 MIN 06/12/2019 12 :00:00 AM EDT eCW1 ([facility]) ESTABILISHED PATIENT [facility] FACILITY CHARGE 020 12:00:00 AM EDT eCW1 ([facility]) SURGERY CASE REQUEST OUTSIDE FACILITY ONLY SURGERY CA SE REQUEST OUTSIDE FACILITY ONLY Routine 04/01/2019 11:37 AM EST Cubital tunnel syndrome on right 04/01/2019 04:37:19 PM EST Cubital tunnel syndrome on right [facility] Cubital tunnel syndrome on right Lumbar/Sacral w/ Imaging 03/25/2019 12:00:00 AM EST eCW1 ([facility]) RADXPS IN END [id number] PXD 03/25/2019 12:00:00 AM ES T eCW1 ([facility]) Results ID Date Data Source [id number] 02/29/2020 05:49:00 PM EST [facility] Name Value Range Interpretation Code Description Data Abbey rce(s) Supporting Document(s) SARS-CoV-2 (COVID 19) NEGATIVE - SARS-CoV-2 (COVID19) [facility] This lab was ordered by [facility] a nd reported by [facility]. ID Date Data Source Comprehensive Metabolic Profile (CMP) 12/18/2019 08:27:18 AM EST eCW1 ([facility]) Name Value Range Interpretation Code Description Data Abbey rce(s) Supporting Document(s) 92 GLUCOSE, FASTING eCW1 ([facility]) 15 BLOOD UREA NITROGEN eCW1 ([facility]) 1.01 CREATININE FOR GFR eCW1 ([facility]) 102 CHLORIDE LEVEL eCW1 ([facility]) 135 SODIUM LEVEL eCW1 ([facility]) 5.2 POTASSIUM SERUM eCW1 ([facility]) > 60.0 GLOMERULAR FILTRATION RATE eCW 1 ([facility]) 28 CARBON DIOXIDE LEVEL eCW1 ([facility]) 14 ALT/SGPT eCW1 ([facility]) 9 AST/SGOT eCW1 ([facility]) 9.5 CALCIUM LEVEL eCW1 ([facility]) 7.5 TOTAL PROTEIN eCW1 ([facility]) 0.3 BILIRUBIN,TOTAL eCW1 ([facility]) 101 ALKALINE PHOSPHATASE eCW1 ([facility]) 4.3 ALBUMIN eCW1 ([facility]) 1.3 ALBUMIN/GLOBULIN RATIO eCW1 ([facility]) ID Date Data Source [id number] 12/06/2019 10:45:00 AM EDT [facility] Name Value Range Interpretation Code Description Data Abbey rce(s) Supporting Document(s) SARS coronavirus 2 RNA [facility] This lab was ordered by [facility] and reported by [facility]. ID Date Data Source [facility] GUIDE SPINE INJECTION (PAIN) 11/12/2019 05:47:51 AM EDT eCW1 ([facility]) Name Value Range Interpretation Code Description Data Abbey rce(s) Supporting Document(s) [facility] FLUORO GUIDE SPINE IN JECTION (PAIN) eCW1 ([facility]) ID Date Data Source [id number] 11/07/2019 10:00:00 AM EDT [facility] Name Value Range Interpretation Code Description Data Abbey rce(s) Supporting Document(s) SARS coronavirus 2 RNA [facility] This lab was ordered by [facility] and reported by [facility]. ID Date Data Source [id number] 07/11/2019 11:25:00 AM EDT [facility] Name Value Range Interpretation Code Description Data Abbey rce(s) Supporting Document(s) SARS CORONAVIRUS 2 RNA [facility] This lab was ordered by [facility] and reported by [facility]. ID Date Data Source [id number] 04/04/2019 03:33:54 PM [facility] Name Value Range Interpretation Code Description Data Abbey rce(s) Supporting Document(s) Progress Note [facility] [id number] [file] [id number] Procedure Social History Code Duration Value Status Description Data Source(s ) Smoking 02/16/2020 12:00:00 AM EST Current Smoker completed Curre nt Smoker eCW1 ([facility]) Smoking 02/16/2020 12:00:00 AM EST Current Smoker completed Curre nt Smoker eCW1 ([facility]) Smoking 02/16/2020 12:00:00 AM EST Current Smoker completed Curre nt Smoker eCW1 ([facility]) Smoking 02/16/2020 12:00:00 AM EST Current Smoker completed Curre nt Smoker eCW1 ([facility]) Smoking 02/16/2020 12:00:00 AM EST Current Smoker completed Curre nt Smoker eCW1 ([facility]) Smoking 02/16/2020 12:00:00 AM EST Current Smoker completed Curre nt Smoker eCW1 ([facility]) Smoking 01/28/2020 12:00:00 AM EST Current Smoker completed Curre nt Smoker eCW1 ([facility]) Smoking 01/28/2020 12:00:00 AM EST Current Smoker completed Curre nt Smoker eCW1 ([facility]) Smoking 01/28/2020 12:00:00 AM EST Current Smoker completed Curre nt Smoker eCW1 ([facility]) Smoking 01/28/2020 12:00:00 AM EST Current Smoker completed Curre nt Smoker eCW1 ([facility]) Smoking 01/28/2020 12:00:00 AM EST Current Smoker completed Curre nt Smoker eCW1 ([facility]) Smoking 01/28/2020 12:00:00 AM EST Current Smoker completed Curre nt Smoker eCW1 ([facility]) Smoking 01/15/2020 12:00:00 AM EST Current Smoker completed Curre nt Smoker eCW1 ([facility]) Smoking 01/15/2020 12:00:00 AM EST Current Smoker completed Curre nt Smoker eCW1 ([facility]) Smoking 01/15/2020 12:00:00 AM EST Current Smoker completed Curre nt Smoker eCW1 ([facility]) Smoking 01/15/2020 12:00:00 AM EST Current Smoker completed Curre nt Smoker eCW1 ([facility]) Smoking 01/15/2020 12:00:00 AM EST Current Smoker completed Curre nt Smoker eCW1 ([facility]) Smoking 01/15/2020 12:00:00 AM EST Current Smoker completed Curre nt Smoker eCW1 ([facility]) Smoking 01/15/2020 12:00:00 AM EST Current Smoker completed Curre nt Smoker eCW1 ([facility]) Smoking 01/15/2020 12:00:00 AM EST Current Smoker completed Curre nt Smoker eCW1 ([facility]) Smoking 01/15/2020 12:00:00 AM EST Current Smoker completed Curre nt Smoker eCW1 ([facility]) Smoking 01/15/2020 12:00:00 AM EST Current Smoker completed Curre nt Smoker eCW1 ([facility]) Smoking 01/15/2020 12:00:00 AM EST Current Smoker completed Curre nt Smoker eCW1 ([facility]) Smoking 01/15/2020 12:00:00 AM EST Current Smoker completed Curre nt Smoker eCW1 ([facility]) Smoking 01/15/2020 12:00:00 AM EST Current Smoker completed Curre nt Smoker eCW1 ([facility]) Smoking 01/15/2020 12:00:00 AM EST Current Smoker completed Curre nt Smoker eCW1 ([facility]) Smoking 12/24/2019 12:00:00 AM EST Current Smoker completed Curre nt Smoker eCW1 ([facility]) Smoking 12/24/2019 12:00:00 AM EST Current Smoker completed Curre nt Smoker eCW1 ([facility]) Smoking 12/24/2019 12:00:00 AM EST Current Smoker completed Curre nt Smoker eCW1 ([facility]) Smoking 12/24/2019 12:00:00 AM EST Current Smoker completed Curre nt Smoker eCW1 ([facility]) Smoking 12/24/2019 12:00:00 AM EST Current Smoker completed Curre nt Smoker eCW1 ([facility]) Smoking 12/24/2019 12:00:00 AM EST Current Smoker completed Curre nt Smoker eCW1 ([facility]) Smoking 12/24/2019 12:00:00 AM EST Current Smoker completed Curre nt Smoker eCW1 ([facility]) Smoking 12/24/2019 12:00:00 AM EST Current Smoker completed Curre nt Smoker eCW1 ([facility]) Smoking 12/24/2019 12:00:00 AM EST Current Smoker completed Curre nt Smoker eCW1 ([facility]) Smoking 12/24/2019 12:00:00 AM EST Current Smoker completed Curre nt Smoker eCW1 ([facility]) Smoking 12/24/2019 12:00:00 AM EST Current Smoker completed Curre nt Smoker eCW1 ([facility]) Smoking 12/24/2019 12:00:00 AM EST Current Smoker completed Curre nt Smoker eCW1 ([facility]) Smoking 12/24/2019 12:00:00 AM EST Current Smoker completed Curre nt Smoker eCW1 ([facility]) Smoking 12/24/2019 12:00:00 AM EST Current Smoker completed Curre nt Smoker eCW1 ([facility]) Smoking 12/24/2019 12:00:00 AM EST Current Smoker completed Curre nt Smoker eCW1 ([facility]) Smoking 12/24/2019 12:00:00 AM EST Current Smoker completed Curre nt Smoker eCW1 ([facility]) Smoking 12/24/2019 12:00:00 AM EST Current Smoker completed Curre nt Smoker eCW1 ([facility]) Smoking 12/24/2019 12:00:00 AM EST Current Smoker completed Curre nt Smoker eCW1 ([facility]) Smoking 12/24/2019 12:00:00 AM EST Current Smoker completed Curre nt Smoker eCW1 ([facility]) Smoking 12/24/2019 12:00:00 AM EST Current Smoker completed Curre nt Smoker eCW1 ([facility]) Smoking 12/24/2019 12:00:00 AM EST Current Smoker completed Curre nt Smoker eCW1 ([facility]) Smoking 12/24/2019 12:00:00 AM EST Current Smoker completed Curre nt Smoker eCW1 ([facility]) Smoking 12/24/2019 12:00:00 AM EST Current Smoker completed Curre nt Smoker eCW1 ([facility]) Smoking 12/24/2019 12:00:00 AM EST Current Smoker completed Curre nt Smoker eCW1 ([facility]) Smoking 12/24/2019 12:00:00 AM EST Current Smoker completed Curre nt Smoker eCW1 ([facility]) Smoking 12/22/2019 12:00:00 AM EST Current Smoker completed Curre nt Smoker eCW1 ([facility]) Smoking 12/22/2019 12:00:00 AM EST Current Smoker completed Curre nt Smoker eCW1 ([facility]) Smoking 12/22/2019 12:00:00 AM EST Current Smoker completed Curre nt Smoker eCW1 ([facility]) Smoking 12/18/2019 12:00:00 AM EST Current Smoker completed Curre nt Smoker eCW1 ([facility]) Smoking 12/18/2019 12:00:00 AM EST Current Smoker completed Curre nt Smoker eCW1 ([facility]) Smoking 12/18/2019 12:00:00 AM EST Current Smoker completed Curre nt Smoker eCW1 ([facility]) Smoking 12/18/2019 12:00:00 AM EST Current Smoker completed Curre nt Smoker eCW1 ([facility]) Smoking 12/18/2019 12:00:00 AM EST Current Smoker completed Curre nt Smoker eCW1 ([facility]) Smoking 12/18/2019 12:00:00 AM EST Current Smoker completed Curre nt Smoker eCW1 ([facility]) Smoking 12/11/2019 12:00:00 AM EDT Current Smoker completed Curre nt Smoker eCW1 ([facility]) Smoking 12/11/2019 12:00:00 AM EDT Current Smoker completed Curre nt Smoker eCW1 ([facility]) Smoking 12/11/2019 12:00:00 AM EDT Current Smoker completed Curre nt Smoker eCW1 ([facility]) Smoking 12/11/2019 12:00:00 AM EDT Current Smoker completed Curre nt Smoker eCW1 ([facility]) Smoking 12/09/2019 12:00:00 AM EDT Current Smoker completed Curre nt Smoker eCW1 ([facility]) Smoking 11/30/2019 12:00:00 AM EDT Current Smoker completed Curre nt Smoker eCW1 ([facility]) Smoking 11/30/2019 12:00:00 AM EDT Current Smoker completed Curre nt Smoker eCW1 ([facility]) Smoking 11/30/2019 12:00:00 AM EDT Current Smoker completed Curre nt Smoker eCW1 ([facility]) Smoking 11/30/2019 12:00:00 AM EDT Current Smoker completed Curre nt Smoker eCW1 ([facility]) Smoking 11/30/2019 12:00:00 AM EDT Current Smoker completed Curre nt Smoker eCW1 ([facility]) Smoking 11/30/2019 12:00:00 AM EDT Current Smoker completed Curre nt Smoker eCW1 ([facility]) Smoking 11/24/2019 12:00:00 AM EDT Current Smoker completed Curre nt Smoker eCW1 ([facility]) Smoking 11/12/2019 12:00:00 AM EDT Current Smoker completed Curre nt Smoker eCW1 ([facility]) Smoking 11/12/2019 12:00:00 AM EDT Current Smoker completed Curre nt Smoker eCW1 ([facility]) Smoking 09/04/2019 12:00:00 AM EDT Current Smoker completed Curre nt Smoker eCW1 ([facility]) Smoking 09/04/2019 12:00:00 AM EDT Current Smoker completed Curre nt Smoker eCW1 ([facility]) Smoking 09/04/2019 12:00:00 AM EDT Current Smoker completed Curre nt Smoker eCW1 ([facility]) Smoking 09/04/2019 12:00:00 AM EDT Current Smoker completed Curre nt Smoker eCW1 ([facility]) Smoking 09/04/2019 12:00:00 AM EDT Current Smoker completed Curre nt Smoker eCW1 ([facility]) Smoking 09/04/2019 12:00:00 AM EDT Current Smoker completed Curre nt Smoker eCW1 ([facility]) Smoking 09/04/2019 12:00:00 AM EDT Current Smoker completed Curre nt Smoker eCW1 ([facility]) Smoking 08/31/2019 12:00:00 AM EDT Current Smoker completed Curre nt Smoker eCW1 ([facility]) Smoking 08/31/2019 12:00:00 AM EDT Current Smoker completed Curre nt Smoker eCW1 ([facility]) Smoking 08/31/2019 12:00:00 AM EDT Current Smoker completed Curre nt Smoker eCW1 ([facility]) Smoking 08/25/2019 12:00:00 AM EDT Current Smoker completed Curre nt Smoker eCW1 ([facility]) Smoking 08/25/2019 12:00:00 AM EDT Current Smoker completed Curre nt Smoker eCW1 ([facility]) Smoking 08/25/2019 12:00:00 AM EDT Current Smoker completed Curre nt Smoker eCW1 ([facility]) Smoking 08/25/2019 12:00:00 AM EDT Current Smoker completed Curre nt Smoker eCW1 ([facility]) Smoking 08/25/2019 12:00:00 AM EDT Current Smoker completed Curre nt Smoker eCW1 ([facility]) Smoking 08/04/2019 12:00:00 AM EDT Current Smoker completed Curre nt Smoker eCW1 ([facility]) Smoking 07/13/2019 12:00:00 AM EDT Current Smoker completed Curre nt Smoker eCW1 ([facility]) Smoking 07/13/2019 12:00:00 AM EDT Current Smoker completed Curre nt Smoker eCW1 ([facility]) Smoking 07/13/2019 12:00:00 AM EDT Current Smoker completed Curre nt Smoker eCW1 ([facility]) Smoking 07/13/2019 12:00:00 AM EDT Current Smoker completed Curre nt Smoker eCW1 ([facility]) Alcohol intake 04/04/2019 12:00:00 AM EST Current non-d alma of alcohol (finding) completed Current non-drinker of alcohol (finding) [facility] Cigarette pack-years 04/04/2019 12:00:00 AM EST UNK completed [facility] Cigarettes smoked current (pack per day) - Reported 04/04/19 12:00:00 AM EST UNK completed [facility] Smoking 04/04/2019 12:00:00 AM EST Current every day smoker co mpleted Current every day smoker [facility] Vital Signs ID Date Data Source UNK Name Value Range Interpretation Code Description Data Source(s) Diastolic blood pressure 84 mm[Hg] 84 mm[Hg] eCW1 ([facility]) Systolic blood pressure 130 mm[Hg] 130 mm[Hg] e CW1 ([facility]) Body temperature 97.5 [degF] 97.5 [degF] eCW1 ( [facility]) Respiratory rate 18 /min 18 /min eCW1 ([facility]) Heart rate 102 /min 102 /min eCW1 ([facility]) Body mass index (BMI) [Ratio] 23.03 kg/m2 23.03 kg/m2 W1 ([facility]) Body height 69 [in_i] 69 [in_i] eCW1 ([facility]) Body weight 156 [lb_av] 156 [lb_av] eCW1 ([facility]) Diastolic blood pressure 78 mm[Hg] 78 mm[Hg] eCW1 ([facility]) Systolic blood pressure 132 mm[Hg] 132 mm[Hg] e CW1 ([facility]) Body temperature 98.0 [degF] 98.0 [degF] eCW1 ( [facility]) Respiratory rate 18 /min 18 /min eCW1 ([facility]) Heart rate 99 /min 99 /min eCW1 ([facility]) Body mass index (BMI) [Ratio] 23.33 kg/m2 23.33 kg/m2 eCW1 ([facility]) Body height 69 [in_i] 69 [in_i] eCW1 ([facility]) Body weight 158 [lb_av] 158 [lb_av] eCW1 ([facility]) Diastolic blood pressure 90 mm[Hg] 90 mm[Hg] eCW1 ([facility]) Systolic blood pressure 140 mm[Hg] 140 mm[Hg] e CW1 ([facility]) Body temperature [degF] eCW1 ([facility]) Respiratory rate 18 /min 18 /min eCW1 ([facility]) Heart rate 112 /min 112 /min eCW1 ([facility]) Body mass index (BMI) [Ratio] 23.18 kg/m2 23.18 kg/m2 eCW1 ([facility]) Body height 69 [in_i] 69 [in_i] eCW1 ([facility]) Body weight 157 [lb_av] 157 [lb_av] eCW1 ([facility]) Diastolic blood pressure 80 mm[Hg] 80 mm[Hg] eCW1 ([facility]) Systolic blood pressure 130 mm[Hg] 130 mm[Hg] e CW1 ([facility]) Body temperature 98.2 [degF] 98.2 [degF] eCW1 ( [facility]) Respiratory rate 18 /min 18 /min eCW1 ([facility]) Heart rate 104 /min 104 /min eCW1 ([facility]) Body mass index (BMI) [Ratio] 23.45 kg/m2 23.45 kg/m2 eCW1 ([facility]) Body height 69 [in_i] 69 [in_i] eCW1 ([facility]) Body weight 158.8 [lb_av] 158.8 [lb_av] eCW1 ([facility]) Diastolic blood pressure 100 mm[Hg] 100 mm[Hg] eCW1 ([facility]) Systolic blood pressure 150 mm[Hg] 150 mm[Hg] e CW1 ([facility]) Body temperature 98.2 [degF] 98.2 [degF] eCW1 ( [facility]) Respiratory rate 18 /min 18 /min eCW1 ([facility]) Heart rate 92 /min 92 /min eCW1 ([facility]) Body mass index (BMI) [Ratio] 23.74 kg/m2 23.74 kg/m2 eCW1 ([facility]) Body height 69 [in_i] 69 [in_i] eCW1 ([facility]) Body weight 160.8 [lb_av] 160.8 [lb_av] eCW1 ([facility]) Diastolic blood pressure 98 mm[Hg] 98 mm[Hg] eCW1 ([facility]) Systolic blood pressure 146 mm[Hg] 146 mm[Hg] e CW1 ([facility]) Body temperature 97.6 [degF] 97.6 [degF] eCW1 ( [facility]) Respiratory rate 18 /min 18 /min eCW1 ([facility]) Heart rate 75 /min 75 /min eCW1 ([facility]) Body mass index (BMI) [Ratio] 23.86 kg/m2 23.86 kg/m2 eCW1 ([facility]) Body height 69 [in_i] 69 [in_i] eCW1 ([facility]) Body weight 161.6 [lb_av] 161.6 [lb_av] eCW1 ([facility]) Diastolic blood pressure 93 mm[Hg] 93 mm[Hg] eCW1 ([facility]) Systolic blood pressure 136 mm[Hg] 136 mm[Hg] e CW1 ([facility]) Body temperature 98.6 [degF] 98.6 [degF] eCW1 ( [facility]) Respiratory rate 16 /min 16 /min eCW1 ([facility]) Heart rate 69 /min 69 /min eCW1 ([facility]) Body mass index (BMI) [Ratio] 23.63 kg/m2 23.63 kg/m2 eCW1 ([facility]) Body height 69 [in_i] 69 [in_i] eCW1 ([facility]) Body weight 160 [lb_av] 160 [lb_av] eCW1 ([facility]) Diastolic blood pressure 96 mm[Hg] 96 mm[Hg] eCW1 ([facility]) Systolic blood pressure 148 mm[Hg] 148 mm[Hg] e CW1 ([facility]) Body temperature 98.3 [degF] 98.3 [degF] eCW1 ( [facility]) Respiratory rate 18 /min 18 /min eCW1 ([facility]) Heart rate 73 /min 73 /min eCW1 ([facility]) Body mass index (BMI) [Ratio] 23.42 kg/m2 23.42 kg/m2 eCW1 ([facility]) Body height 69 [in_i] 69 [in_i] eCW1 ([facility]) Body weight 158.6 [lb_av] 158.6 [lb_av] eCW1 ([facility]) Diastolic blood pressure 80 mm[Hg] 80 mm[Hg] eCW1 ([facility]) Systolic blood pressure 120 mm[Hg] 120 mm[Hg] e CW1 ([facility]) Body temperature 97.8 [degF] 97.8 [degF] eCW1 ( [facility]) Respiratory rate 18 /min 18 /min eCW1 ([facility]) Heart rate 103 /min 103 /min eCW1 ([facility]) Body mass index (BMI) [Ratio] 24.19 kg/m2 24.19 kg/m2 eCW1 ([facility]) Body height 69 [in_i] 69 [in_i] eCW1 ([facility]) Body weight 163.8 [lb_av] 163.8 [lb_av] eCW1 ([facility]) Diastolic blood pressure 84 mm[Hg] 84 mm[Hg] eCW1 ([facility]) Systolic blood pressure 198 mm[Hg] 198 mm[Hg] e CW1 ([facility]) Body temperature 97.0 [degF] 97.0 [degF] eCW1 ( [facility]) Respiratory rate 18 /min 18 /min eCW1 ([facility]) Heart rate 89 /min 89 /min eCW1 ([facility]) Body mass index (BMI) [Ratio] 24.25 kg/m2 24.25 kg/m2 eCW1 ([facility]) Body height 69 [in_i] 69 [in_i] eCW1 ([facility]) Body weight 164.2 [lb_av] 164.2 [lb_av] eCW1 ([facility]) Body mass index (BMI) [Ratio] 24.9 kg/m2 [...] blood pressure 82 mm[Hg] 82 mm[Hg] eCW1 ([facility]) Systolic blood pressure 120 mm[Hg] 120 mm[Hg] e CW1 ([facility]) Body temperature 98 [degF] 98 [degF] eCW1 ([facility]) Respiratory rate 18 /min 18 /min eCW1 ([facility]) Heart rate 125 /min 125 /min eCW1 ([facility]) Body mass index (BMI) [Ratio] 24.19 kg/m2 24.19 kg/m2 eCW1 ([facility]) Body height 69 [in_i] 69 [in_i] eCW1 ([facility]) Body weight 163.8 [lb_av] 163.8 [lb_av] eCW1 ([facility]) Diastolic blood pressure 78 mm[Hg] 78 mm[Hg] eCW1 ([facility]) Systolic blood pressure 130 mm[Hg] 130 mm[Hg] e CW1 ([facility]) Body temperature 98.5 [degF] 98.5 [degF] eCW1 ( [facility]) Respiratory rate 18 /min 18 /min eCW1 ([facility]) Heart rate 102 /min 102 /min eCW1 ([facility]) Body mass index (BMI) [Ratio] 24.57 kg/m2 24.57 kg/m2 eCW1 ([facility]) Body height 69 [in_i] 69 [in_i] eCW1 ([facility]) Body weight 166.4 [lb_av] 166.4 [lb_av] eCW1 ([facility]) Diastolic blood pressure 70 mm[Hg] 70 mm[Hg] eCW1 ([facility]) Systolic blood pressure 110 mm[Hg] 110 mm[Hg] e CW1 ([facility]) Body temperature 97.3 [degF] 97.3 [degF] eCW1 ( [facility]) Respiratory rate 18 /min 18 /min eCW1 ([facility]) Heart rate 107 /min 107 /min eCW1 ([facility]) Body mass index (BMI) [Ratio] 24.22 kg/m2 24.22 kg/m2 eCW1 ([facility]) Body height 69 [in_i] 69 [in_i] eCW1 ([facility]) Body weight 164 [lb_av] 164 [lb_av] eCW1 ([facility]) Diastolic blood pressure 85 mm[Hg] 85 mm[Hg] eCW1 ([facility]) Systolic blood pressure 112 mm[Hg] 112 mm[Hg] e CW1 ([facility]) Body temperature 98.3 [degF] 98.3 [degF] eCW1 ( [facility]) Respiratory rate 18 /min 18 /min eCW1 ([facility]) Heart rate 107 /min 107 /min eCW1 ([facility]) Body mass index (BMI) [Ratio] 23.95 kg/m2 23.95 kg/m2 eCW1 ([facility]) Body height 69 [in_i] 69 [in_i] eCW1 ([facility]) Body weight 162.2 [lb_av] 162.2 [lb_av] eCW1 ([facility]) Diastolic blood pressure 88 mm[Hg] 88 mm[Hg] eCW1 ([facility]) Systolic blood pressure 135 mm[Hg] 135 mm[Hg] e CW1 ([facility]) Body temperature 97.5 [degF] 97.5 [degF] eCW1 ( [facility]) Respiratory rate 18 /min 18 /min eCW1 ([facility]) Heart rate 86 /min 86 /min eCW1 ([facility]) Body mass index (BMI) [Ratio] 24.22 kg/m2 24.22 kg/m2 eCW1 ([facility]) Body height 69 [in_us] 69 [in_us] eCW1 ([facility]) Body weight Measured 164 [lb_av] 164 [lb_av] eC W1 ([facility]) Diastolic blood pressure 86 mm[Hg] 86 mm[Hg] eCW1 ([facility]) Systolic blood pressure 131 mm[Hg] 131 mm[Hg] e CW1 ([facility]) Body temperature 97.9 [degF] 97.9 [degF] eCW1 ( [facility]) Respiratory rate 16 /min 16 /min eCW1 ([facility]) Heart rate 93 /min 93 /min eCW1 ([facility]) Body mass index (BMI) [Ratio] 24.22 kg/m2 24.22 kg/m2 eCW1 ([facility]) Body height 69 [in_us] 69 [in_us] eCW1 ([facility]) Body weight Measured 164 [lb_av] 164 [lb_av] eC W1 ([facility]) Diastolic blood pressure 94 mm[Hg] 94 mm[Hg] eCW1 ([facility]) Systolic blood pressure 137 mm[Hg] 137 mm[Hg] e CW1 ([facility]) Body temperature 98.5 [degF] 98.5 [degF] eCW1 ( [facility]) Respiratory rate 16 /min 16 /min eCW1 ([facility]) Heart rate 90 /min 90 /min eCW1 ([facility]) Body mass index (BMI) [Ratio] 24.22 kg/m2 24.22 kg/m2 eCW1 ([facility]) Body height 69 [in_us] 69 [in_us] eCW1 ([facility]) Body weight Measured 164 [lb_av] 164 [lb_av] eC W1 ([facility]) Diastolic blood pressure 76 mm[Hg] 76 mm[Hg] eCW1 ([facility]) Systolic blood pressure 132 mm[Hg] 132 mm[Hg] e CW1 ([facility]) Body temperature 97.9 [degF] 97.9 [degF] eCW1 ( [facility]) Respiratory rate 18 /min 18 /min eCW1 ([facility]) Heart rate 81 /min 81 /min eCW1 ([facility]) Body mass index (BMI) [Ratio] 24.36 kg/m2 24.36 kg/m2 eCW1 ([facility]) Body height 69 [in_us] 69 [in_us] eCW1 ([facility]) Body weight Measured 165 [lb_av] 165 [lb_av] eC W1 ([facility]) Diastolic blood pressure 86 mm[Hg] 86 mm[Hg] eCW1 ([facility]) Systolic blood pressure 138 mm[Hg] 138 mm[Hg] e CW1 ([facility]) Body temperature 97.1 [degF] 97.1 [degF] eCW1 ( [facility]) Respiratory rate 18 /min 18 /min eCW1 ([facility]) Heart rate 77 /min 77 /min eCW1 ([facility]) Body mass index (BMI) [Ratio] 24.36 kg/m2 24.36 kg/m2 eCW1 ([facility]) Body height 69 [in_us] 69 [in_us] eCW1 ([facility]) Body weight Measured 165.0 [lb_av] 165.0 [lb_av ] eCW1 ([facility]) Diastolic blood pressure 91 mm[Hg] 91 mm[Hg] eCW1 ([facility]) Systolic blood pressure 145 mm[Hg] 145 mm[Hg] e CW1 ([facility]) Body temperature 97.9 [degF] 97.9 [degF] eCW1 ( [facility]) Respiratory rate 18 /min 18 /min eCW1 ([facility]) Heart rate 76 /min 76 /min eCW1 ([facility]) Body mass index (BMI) [Ratio] 24.13 kg/m2 24.13 kg/m2 eCW1 ([facility]) Body height 69 [in_us] 69 [in_us] eCW1 ([facility]) Body weight Measured 163.4 [lb_av] 163.4 [lb_av ] eCW1 ([facility]) Diastolic blood pressure 101 mm[Hg] 101 mm[Hg] eCW1 ([facility]) Systolic blood pressure 141 mm[Hg] 141 mm[Hg] e CW1 ([facility]) Body temperature 97.9 [degF] 97.9 [degF] eCW1 ( [facility]) Respiratory rate 18 /min 18 /min eCW1 ([facility]) Heart rate 82 /min 82 /min eCW1 ([facility]) Body mass index (BMI) [Ratio] 24.13 kg/m2 24.13 kg/m2 eCW1 ([facility]) Body height 69 [in_us] 69 [in_us] eCW1 ([facility]) Body weight Measured 163.4 [lb_av] 163.4 [lb_av ] eCW1 ([facility]) ID Date Data Source [id number] 06/01/2019 11:45:02 AM T [facility] Name Value Range Interpretation Code Description Data Source(s) WEIGHT RECORDED 165 lb 165 lb [facility] Body height Measured 69 [facility] Patient Treatment Plan of Care Planned Activity Planned Date Details Description Data Source (s) Morphine Sulfate 15 MG Oral Tablet 02/23/2020 12:00:00 AM EST eCW1 ([facility]) Acetaminophen 325 MG / Oxycodone Hydrochloride 10 MG O ral Tablet [Percocet] 02/23/2020 12:00:00 AM EST eCW1 ([facility]) Morphine Sulfate 15 MG Oral Tablet 02/23/2020 12:00:00 AM EST eCW1 ([facility]) Acetaminophen 325 MG / Oxycodone Hydrochloride 10 MG O ral Tablet [Percocet] 02/23/2020 12:00:00 AM EST eCW1 ([facility]) Morphine Sulfate 15 MG Oral Tablet 02/23/2020 12:00:00 AM EST eCW1 ([facility]) Acetaminophen 325 MG / Oxycodone Hydrochloride 10 MG O ral Tablet [Percocet] 02/23/2020 12:00:00 AM EST eCW1 ([facility]) Morphine Sulfate 15 MG Oral Tablet 02/23/2020 12:00:00 AM EST eCW1 ([facility]) Acetaminophen 325 MG / Oxycodone Hydrochloride 10 MG O ral Tablet [Percocet] 02/23/2020 12:00:00 AM EST eCW1 ([facility]) Morphine Sulfate 15 MG Oral Tablet 02/23/2020 12:00:00 AM EST eCW1 ([facility]) Acetaminophen 325 MG / Oxycodone Hydrochloride 10 MG O ral Tablet [Percocet] 02/23/2020 12:00:00 AM EST eCW1 ([facility]) Morphine Sulfate 15 MG Oral Tablet 02/23/2020 12:00:00 AM EST eCW1 ([facility]) Acetaminophen 325 MG / Oxycodone Hydrochloride 10 MG O ral Tablet [Percocet] 02/23/2020 12:00:00 AM EST eCW1 ([facility]) Budesonide 180 MCG/ACT 02/16/2020 12:00:00 AM EST eCW1 ([facility]) Budesonide 180 MCG/ACT 02/16/2020 12:00:00 AM EST eCW1 ([facility]) Budesonide 180 MCG/ACT 02/16/2020 12:00:00 AM EST eCW1 ([facility]) Budesonide 180 MCG/ACT 02/16/2020 12:00:00 AM EST eCW1 ([facility]) Budesonide 180 MCG/ACT 02/16/2020 12:00:00 AM EST eCW1 ([facility]) Budesonide 180 MCG/ACT 02/16/2020 12:00:00 AM EST eCW1 ([facility]) Albuterol 0.833 MG/ML / Ipratropium [place] 0.167 MG/M L Inhalant Solution 01/28/2020 12:00:00 AM EST eCW1 ([facility]) Albuterol 0.833 MG/ML / Ipratropium [place] 0.167 MG/M L Inhalant Solution 01/28/2020 12:00:00 AM EST eCW1 ([facility]) Albuterol 0.833 MG/ML / Ipratropium [place] 0.167 MG/M L Inhalant Solution 01/28/2020 12:00:00 AM EST eCW1 ([facility]) Albuterol 0.833 MG/ML / Ipratropium [place] 0.167 MG/M L Inhalant Solution 01/28/2020 12:00:00 AM EST eCW1 ([facility]) Albuterol 0.833 MG/ML / Ipratropium [place] 0.167 MG/M L Inhalant Solution 01/28/2020 12:00:00 AM EST eCW1 ([facility]) Albuterol 0.833 MG/ML / Ipratropium [place] 0.167 MG/M L Inhalant Solution 01/28/2020 12:00:00 AM EST eCW1 ([facility]) Morphine Sulfate ER 15 MG 01/27/2020 12:00:00 AM EST eCW1 ([facility]) Morphine Sulfate 15 MG Extended Release Oral Tablet 01/27/20 12:00:00 AM EST eCW1 ([facility]) Morphine Sulfate 15 MG Oral Tablet 01/27/2020 12:00:00 AM EST eCW1 ([facility]) Morphine Sulfate ER 15 MG 01/27/2020 12:00:00 AM EST eCW1 ([facility]) Morphine Sulfate 15 MG Extended Release Oral Tablet 01/27/20 12:00:00 AM EST eCW1 ([facility]) Morphine Sulfate 15 MG Oral Tablet 01/27/2020 12:00:00 AM EST eCW1 ([facility]) Morphine Sulfate ER 15 MG 01/26/2020 12:00:00 AM EST eCW1 ([facility]) Acetaminophen 325 MG / Oxycodone Hydrochloride 10 MG O ral Tablet [Percocet] 01/22/2020 12:00:00 AM EST eCW1 ([facility]) Acetaminophen 325 MG / Oxycodone Hydrochloride 10 MG O ral Tablet [Percocet] 01/22/2020 12:00:00 AM EST eCW1 ([facility]) Acetaminophen 325 MG / Oxycodone Hydrochloride 10 MG O ral Tablet [Percocet] 01/22/2020 12:00:00 AM EST eCW1 ([facility]) Acetaminophen 325 MG / Oxycodone Hydrochloride 10 MG O ral Tablet [Percocet] 01/22/2020 12:00:00 AM EST eCW1 ([facility]) Acetaminophen 325 MG / Oxycodone Hydrochloride 10 MG O ral Tablet [Percocet] 01/22/2020 12:00:00 AM EST eCW1 ([facility]) Acetaminophen 325 MG / Oxycodone Hydrochloride 10 MG O ral Tablet [Percocet] 01/22/2020 12:00:00 AM EST eCW1 ([facility]) Acetaminophen 325 MG / Oxycodone Hydrochloride 10 MG O ral Tablet [Percocet] 01/22/2020 12:00:00 AM EST eCW1 ([facility]) Morphine Sulfate ER 15 MG 01/20/2020 12:00:00 AM EST eCW1 ([facility]) Morphine Sulfate ER 15 MG 01/20/2020 12:00:00 AM EST eCW1 ([facility]) Morphine Sulfate ER 15 MG 01/20/2020 12:00:00 AM EST eCW1 ([facility]) Morphine Sulfate ER 15 MG 01/20/2020 12:00:00 AM EST eCW1 ([facility]) Morphine Sulfate ER 15 MG 01/20/2020 12:00:00 AM EST eCW1 ([facility]) Morphine Sulfate ER 15 MG 01/20/2020 12:00:00 AM EST eCW1 ([facility]) Morphine Sulfate ER 15 MG 01/20/2020 12:00:00 AM EST eCW1 ([facility]) duloxetine 30 MG Delayed Release Oral Capsule [Cymbalt a] 01/13/2020 12:00:00 AM EST eCW1 ([facility]) Spiriva Respimat 1.25 MCG/ACT 12/29/2019 12:00:00 AM EST eCW1 ([facility]) Spiriva Respimat 1.25 MCG/ACT 12/29/2019 12:00:00 AM EST eCW1 ([facility]) Spiriva Respimat 1.25 MCG/ACT 12/29/2019 12:00:00 AM EST eCW1 ([facility]) Spiriva Respimat 1.25 MCG/ACT 12/29/2019 12:00:00 AM EST eCW1 ([facility]) Spiriva Respimat 1.25 MCG/ACT 12/29/2019 12:00:00 AM EST eCW1 ([facility]) Spiriva Respimat 1.25 MCG/ACT 12/29/2019 12:00:00 AM EST eCW1 ([facility]) Spiriva Respimat 1.25 MCG/ACT 12/29/2019 12:00:00 AM EST eCW1 ([facility]) Spiriva Respimat 1.25 MCG/ACT 12/29/2019 12:00:00 AM EST eCW1 ([facility]) Spiriva Respimat 1.25 MCG/ACT 12/29/2019 12:00:00 AM EST eCW1 ([facility]) Spiriva Respimat 1.25 MCG/ACT 12/29/2019 12:00:00 AM EST eCW1 ([facility]) Spiriva Respimat 1.25 MCG/ACT 12/29/2019 12:00:00 AM EST eCW1 ([facility]) Spiriva Respimat 1.25 MCG/ACT 12/29/2019 12:00:00 AM EST eCW1 ([facility]) Spiriva Respimat 1.25 MCG/ACT 12/29/2019 12:00:00 AM EST eCW1 ([facility]) Acetaminophen 325 MG / Oxycodone Hydrochloride 10 MG O ral Tablet [Percocet] 12/22/2019 12:00:00 AM EST eCW1 ([facility]) Omeprazole 40 MG Delayed Release Oral Capsule 12/22/2019 12:00:00 A M EST eCW1 ([facility]) Sucralfate 1000 MG Oral Tablet 12/22/2019 12:00:00 AM EST eCW1 ([facility]) Acetaminophen 325 MG / Oxycodone Hydrochloride 10 MG O ral Tablet [Percocet] 12/22/2019 12:00:00 AM EST eCW1 ([facility]) Omeprazole 40 MG Delayed Release Oral Capsule 12/22/2019 12:00:00 A M EST eCW1 ([facility]) Sucralfate 1000 MG Oral Tablet 12/22/2019 12:00:00 AM EST eCW1 ([facility]) Acetaminophen 325 MG / Oxycodone Hydrochloride 10 MG O ral Tablet [Percocet] 12/22/2019 12:00:00 AM EST eCW1 ([facility]) Sucralfate 1000 MG Oral Tablet 12/22/2019 12:00:00 AM EST eCW1 ([facility]) Omeprazole 40 MG Delayed Release Oral Capsule 12/22/2019 12:00:00 A M EST eCW1 ([facility]) Acetaminophen 325 MG / Oxycodone Hydrochloride 10 MG O ral Tablet [Percocet] 12/22/2019 12:00:00 AM EST eCW1 ([facility]) Sucralfate 1000 MG Oral Tablet 12/22/2019 12:00:00 AM EST eCW1 ([facility]) Omeprazole 40 MG Delayed Release Oral Capsule 12/22/2019 12:00:00 A M EST eCW1 ([facility]) Acetaminophen 325 MG / Oxycodone Hydrochloride 10 MG O ral Tablet [Percocet] 12/22/2019 12:00:00 AM EST eCW1 ([facility]) Sucralfate 1000 MG Oral Tablet 12/22/2019 12:00:00 AM EST eCW1 ([facility]) Omeprazole 40 MG Delayed Release Oral Capsule 12/22/2019 12:00:00 A M EST eCW1 ([facility]) Acetaminophen 325 MG / Oxycodone Hydrochloride 10 MG O ral Tablet [Percocet] 12/22/2019 12:00:00 AM EST eCW1 ([facility]) Sucralfate 1000 MG Oral Tablet 12/22/2019 12:00:00 AM EST eCW1 ([facility]) Omeprazole 40 MG Delayed Release Oral Capsule 12/22/2019 12:00:00 A M EST eCW1 ([facility]) Omeprazole 40 MG Delayed Release Oral Capsule 12/22/2019 12:00:00 A M EST eCW1 ([facility]) Sucralfate 1000 MG Oral Tablet 12/22/2019 12:00:00 AM EST eCW1 ([facility]) Omeprazole 40 MG Delayed Release Oral Capsule 12/22/2019 12:00:00 A M EST eCW1 ([facility]) Sucralfate 1000 MG Oral Tablet 12/22/2019 12:00:00 AM EST eCW1 ([facility]) Omeprazole 40 MG Delayed Release Oral Capsule 12/22/2019 12:00:00 A M EST eCW1 ([facility]) Sucralfate 1000 MG Oral Tablet 12/22/2019 12:00:00 AM EST eCW1 ([facility]) Omeprazole 40 MG Delayed Release Oral Capsule 12/22/2019 12:00:00 A M EST eCW1 ([facility]) Sucralfate 1000 MG Oral Tablet 12/22/2019 12:00:00 AM EST eCW1 ([facility]) Omeprazole 40 MG Delayed Release Oral Capsule 12/22/2019 12:00:00 A M EST eCW1 ([facility]) Sucralfate 1000 MG Oral Tablet 12/22/2019 12:00:00 AM EST eCW1 ([facility]) Omeprazole 40 MG Delayed Release Oral Capsule 12/22/2019 12:00:00 A M EST eCW1 ([facility]) Sucralfate 1000 MG Oral Tablet 12/22/2019 12:00:00 AM EST eCW1 ([facility]) Omeprazole 40 MG Delayed Release Oral Capsule 12/22/2019 12:00:00 A M EST eCW1 ([facility]) Sucralfate 1000 MG Oral Tablet 12/22/2019 12:00:00 AM EST eCW1 ([facility]) Acetaminophen 325 MG / Oxycodone Hydrochloride 10 MG O ral Tablet [Percocet] 12/22/2019 12:00:00 AM EST eCW1 ([facility]) Omeprazole 40 MG Delayed Release Oral Capsule 12/22/2019 12:00:00 A M EST eCW1 ([facility]) Sucralfate 1000 MG Oral Tablet 12/22/2019 12:00:00 AM EST eCW1 ([facility]) Omeprazole 40 MG Delayed Release Oral Capsule 12/22/2019 12:00:00 A M EST eCW1 ([facility]) Sucralfate 1000 MG Oral Tablet 12/22/2019 12:00:00 AM EST eCW1 ([facility]) Omeprazole 40 MG Delayed Release Oral Capsule 12/22/2019 12:00:00 A M EST eCW1 ([facility]) Sucralfate 1000 MG Oral Tablet 12/22/2019 12:00:00 AM EST eCW1 ([facility]) Omeprazole 40 MG Delayed Release Oral Capsule 12/22/2019 12:00:00 A M EST eCW1 ([facility]) Sucralfate 1000 MG Oral Tablet 12/22/2019 12:00:00 AM EST eCW1 ([facility]) Acetaminophen 325 MG / Oxycodone Hydrochloride 10 MG O ral Tablet [Percocet] 11/24/2019 12:00:00 AM EDT eCW1 ([facility]) Diazepam 2 MG Oral Tablet 11/10/2019 12:00:00 AM EDT eCW1 ([facility]) Diazepam 2 MG Oral Tablet 11/10/2019 12:00:00 AM EDT eCW1 ([facility]) Diazepam 2 MG Oral Tablet 11/10/2019 12:00:00 AM EDT eCW1 ([facility]) Diazepam 2 MG Oral Tablet 11/10/2019 12:00:00 AM EDT eCW1 ([facility]) Diazepam 2 MG Oral Tablet 11/10/2019 12:00:00 AM EDT eCW1 ([facility]) Diazepam 2 MG Oral Tablet 11/10/2019 12:00:00 AM EDT eCW1 ([facility]) Diazepam 2 MG Oral Tablet 11/10/2019 12:00:00 AM EDT eCW1 ([facility]) Diazepam 2 MG Oral Tablet 11/10/2019 12:00:00 AM EDT eCW1 ([facility]) Diazepam 2 MG Oral Tablet 11/10/2019 12:00:00 AM EDT eCW1 ([facility]) Diazepam 2 MG Oral Tablet 11/10/2019 12:00:00 AM EDT eCW1 ([facility]) Diazepam 2 MG Oral Tablet 11/10/2019 12:00:00 AM EDT eCW1 ([facility]) Diazepam 2 MG Oral Tablet 11/10/2019 12:00:00 AM EDT eCW1 ([facility]) Diazepam 2 MG Oral Tablet 11/10/2019 12:00:00 AM EDT eCW1 ([facility]) Diazepam 2 MG Oral Tablet 11/10/2019 12:00:00 AM EDT eCW1 ([facility]) Diazepam 2 MG Oral Tablet 11/10/2019 12:00:00 AM EDT eCW1 ([facility]) Diazepam 2 MG Oral Tablet 11/10/2019 12:00:00 AM EDT eCW1 ([facility]) Diazepam 2 MG Oral Tablet 11/10/2019 12:00:00 AM EDT eCW1 ([facility]) Diazepam 2 MG Oral Tablet 11/10/2019 12:00:00 AM EDT eCW1 ([facility]) Diazepam 2 MG Oral Tablet 11/10/2019 12:00:00 AM EDT eCW1 ([facility]) Diazepam 2 MG Oral Tablet 11/10/2019 12:00:00 AM EDT eCW1 ([facility]) Diazepam 2 MG Oral Tablet 11/10/2019 12:00:00 AM EDT eCW1 ([facility]) Diazepam 2 MG Oral Tablet 11/10/2019 12:00:00 AM EDT eCW1 ([facility]) Diazepam 2 MG Oral Tablet 11/10/2019 12:00:00 AM EDT eCW1 ([facility]) Diazepam 2 MG Oral Tablet 11/10/2019 12:00:00 AM EDT eCW1 ([facility]) Diazepam 2 MG Oral Tablet 11/10/2019 12:00:00 AM EDT eCW1 ([facility]) Diazepam 2 MG Oral Tablet 11/10/2019 12:00:00 AM EDT eCW1 ([facility]) Diazepam 2 MG Oral Tablet 11/10/2019 12:00:00 AM EDT eCW1 ([facility]) Diazepam 2 MG Oral Tablet 11/10/2019 12:00:00 AM EDT eCW1 ([facility]) Diazepam 2 MG Oral Tablet 11/10/2019 12:00:00 AM EDT eCW1 ([facility]) Diazepam 2 MG Oral Tablet 11/10/2019 12:00:00 AM EDT eCW1 ([facility]) Diazepam 2 MG Oral Tablet 11/10/2019 12:00:00 AM EDT eCW1 ([facility]) Diazepam 2 MG Oral Tablet 11/10/2019 12:00:00 AM EDT eCW1 ([facility]) Diazepam 2 MG Oral Tablet 11/10/2019 12:00:00 AM EDT eCW1 ([facility]) Diazepam 2 MG Oral Tablet 11/10/2019 12:00:00 AM EDT eCW1 ([facility]) Diazepam 2 MG Oral Tablet 11/10/2019 12:00:00 AM EDT eCW1 ([facility]) Diazepam 2 MG Oral Tablet 11/10/2019 12:00:00 AM EDT eCW1 ([facility]) Diazepam 2 MG Oral Tablet 11/10/2019 12:00:00 AM EDT eCW1 ([facility]) Diazepam 2 MG Oral Tablet 11/10/2019 12:00:00 AM EDT eCW1 ([facility]) Diazepam 2 MG Oral Tablet 11/10/2019 12:00:00 AM EDT eCW1 ([facility]) Diazepam 2 MG Oral Tablet 11/10/2019 12:00:00 AM EDT eCW1 ([facility]) Diazepam 2 MG Oral Tablet 11/10/2019 12:00:00 AM EDT eCW1 ([facility]) Diazepam 2 MG Oral Tablet 11/10/2019 12:00:00 AM EDT eCW1 ([facility]) Diazepam 2 MG Oral Tablet 11/10/2019 12:00:00 AM EDT eCW1 ([facility]) Diazepam 2 MG Oral Tablet 11/10/2019 12:00:00 AM EDT eCW1 ([facility]) Diazepam 2 MG Oral Tablet 11/10/2019 12:00:00 AM EDT eCW1 ([facility]) Diazepam 2 MG Oral Tablet 11/10/2019 12:00:00 AM EDT eCW1 ([facility]) Diazepam 2 MG Oral Tablet 11/10/2019 12:00:00 AM EDT eCW1 ([facility]) Diazepam 2 MG Oral Tablet 11/10/2019 12:00:00 AM EDT eCW1 ([facility]) Diazepam 2 MG Oral Tablet 11/10/2019 12:00:00 AM EDT eCW1 ([facility]) 28 ACTUAT tiotropium 0.0025 MG/ACTUAT Metered Dose Inh aler [Spiriva] 09/04/2019 12:00:00 AM EDT eCW1 ([facility]) 28 ACTUAT tiotropium 0.0025 MG/ACTUAT Metered Dose Inh aler [Spiriva] 09/04/2019 12:00:00 AM EDT eCW1 ([facility]) 28 ACTUAT tiotropium 0.0025 MG/ACTUAT Metered Dose Inh aler [Spiriva] 09/04/2019 12:00:00 AM EDT eCW1 ([facility]) 28 ACTUAT tiotropium 0.0025 MG/ACTUAT Metered Dose Inh aler [Spiriva] 09/04/2019 12:00:00 AM EDT eCW1 ([facility]) 28 ACTUAT tiotropium 0.0025 MG/ACTUAT Metered Dose Inh aler [Spiriva] 09/04/2019 12:00:00 AM EDT eCW1 ([facility]) 28 ACTUAT tiotropium 0.0025 MG/ACTUAT Metered Dose Inh aler [Spiriva] 09/04/2019 12:00:00 AM EDT eCW1 ([facility]) 28 ACTUAT tiotropium 0.0025 MG/ACTUAT Metered Dose Inh aler [Spiriva] 09/04/2019 12:00:00 AM EDT eCW1 ([facility]) Morphine Sulfate 15 MG Extended Release Oral Tablet 09/03/19 20 12:00:00 AM EDT eCW1 ([facility]) 200 ACTUAT Albuterol 0.09 MG/ACTUAT Metered Dose Inhal er [Ventolin] 08/25/2019 12:00:00 AM EDT eCW1 ([facility]) tiotropium 0.018 MG/ACTUAT Inhalant Powder [Spiriva] 12:00:00 AM EDT eCW1 ([facility]) 200 ACTUAT Albuterol 0.09 MG/ACTUAT Metered Dose Inhal er [Ventolin] 08/25/2019 12:00:00 AM EDT eCW1 ([facility]) tiotropium 0.018 MG/ACTUAT Inhalant Powder [Spiriva] 12:00:00 AM EDT eCW1 ([facility]) 200 ACTUAT Albuterol 0.09 MG/ACTUAT Metered Dose Inhal er [Ventolin] 08/25/2019 12:00:00 AM EDT eCW1 ([facility]) tiotropium 0.018 MG/ACTUAT Inhalant Powder [Spiriva] 12:00:00 AM EDT eCW1 ([facility]) 200 ACTUAT Albuterol 0.09 MG/ACTUAT Metered Dose Inhal er [Ventolin] 08/25/2019 12:00:00 AM EDT eCW1 ([facility]) tiotropium 0.018 MG/ACTUAT Inhalant Powder [Spiriva] 12:00:00 AM EDT eCW1 ([facility]) 200 ACTUAT Albuterol 0.09 MG/ACTUAT Metered Dose Inhal er [Ventolin] 08/25/2019 12:00:00 AM EDT eCW1 ([facility]) tiotropium 0.018 MG/ACTUAT Inhalant Powder [Spiriva] 12:00:00 AM EDT eCW1 ([facility]) Chlorthalidone 25 MG Oral Tablet 08/04/2019 12:00:00 AM EDT eCW1 ([facility]) Propranolol Hydrochloride 10 MG Oral Tablet 08/04/2019 12:00:00 AM EDT eCW1 ([facility]) Morphine Sulfate 15 MG Extended Release Oral Tablet 07/28/19 12:00:00 AM EDT eCW1 ([facility]) Morphine Sulfate 15 MG Extended Release Oral Tablet 07/28/19 12:00:00 AM EDT eCW1 ([facility]) Acetaminophen 325 MG / Oxycodone Hydrochloride 10 MG O ral Tablet [Percocet] 07/13/2019 12:00:00 AM EDT eCW1 ([facility]) Morphine Sulfate 15 MG Extended Release Oral Tablet 07/07/19 12:00:00 AM EDT eCW1 ([facility]) Acetaminophen 325 MG / Oxycodone Hydrochloride 10 MG O ral Tablet [Percocet] 06/17/2019 12:00:00 AM EDT eCW1 ([facility]) Morphine Sulfate 15 MG Extended Release Oral Tablet 06/03/19 12:00:00 AM EDT eCW1 ([facility]) Acetaminophen 325 MG / Oxycodone Hydrochloride 10 MG O ral Tablet [Percocet] 05/18/2019 12:00:00 AM EDT eCW1 ([facility]) Morphine Sulfate 15 MG Extended Release Oral Tablet 05/04/19 12:00:00 AM EDT eCW1 ([facility]) Morphine Sulfate 15 MG Extended Release Oral Tablet 04/08/19 12:00:00 AM EST eCW1 ([facility]) Diazepam 5 MG Oral Tablet 04/01/2019 12:00:00 AM [facility] atorvastatin 40 MG Oral Tablet 03/26/2019 12:00:00 AM EST eCW1 ([facility]) atorvastatin 40 MG Oral Tablet 03/26/2019 12:00:00 AM EST eCW1 ([facility]) atorvastatin 40 MG Oral Tablet 03/26/2019 12:00:00 AM EST eCW1 ([facility]) Nystatin [id number] UNT/ML Topical Cream 03/26/2019 12:00:00 AM EST eCW1 ([facility]) Nystatin [id number] UNT/ML Topical Cream 03/26/2019 12:00:00 AM EST eCW1 ([facility]) Nystatin [id number] UNT/ML Topical Cream 03/26/2019 12:00:00 AM EST eCW1 ([facility]) atorvastatin 40 MG Oral Tablet 03/26/2019 12:00:00 AM EST eCW1 ([facility]) Losartan Potassium 50 MG Oral Tablet 03/26/2019 12:00:00 AM [facility] Ergocalciferol [id number] UNT Oral Capsule 03/26/2019 12:00:00 AM [facility] atorvastatin 40 MG Oral Tablet 03/26/2019 12:00:00 AM [facility] Nystatin [id number] UNT/ML Topical Cream 03/26/2019 12:00:00 AM EST eCW1 ([facility]) atorvastatin 40 MG Oral Tablet 03/26/2019 12:00:00 AM EST eCW1 ([facility]) Acetaminophen 325 MG / Oxycodone Hydrochloride 10 MG O ral Tablet [Percocet] 03/25/2019 12:00:00 AM EST eCW1 ([facility]) Morphine Sulfate 15 MG Extended Release Oral Tablet 03/10/19 12:00:00 AM EST eCW1 ([facility]) Diazepam 5 MG Oral Tablet 03/05/2019 12:00:00 AM [facility] Acetaminophen 325 MG / Oxycodone Hydrochloride 10 MG O ral Tablet [Percocet] 02/17/2019 12:00:00 AM EST eCW1 ([facility]) Morphine Sulfate 15 MG Extended Release Oral Tablet 02/12/19 12:00:00 AM EST eCW1 ([facility]) duloxetine 30 MG Delayed Release Oral Capsule 12/30/2018 12:00:00 A M [facility] Losartan Potassium 25 MG Oral Tablet 05/14/2018 12:00:00 AM [facility] Propranolol Hydrochloride 20 MG Oral Tablet 01/13/2018 12:00:00 AM [facility] Oxycodone Hydrochloride 5 MG Oral Tablet 06/25/2017 12:00:00 AM [facility]
[2020-04-09] MEDS ORDERED: PROAAER10 INH (05:51)
[2020-04-09 06:31] LABS: HEMOGLOBIN 13.7 g/dl (13.5-17.5); MEAN CORPUSCULAR HEMOGLOBIN 31.8 pg (27.0-33.0); MEAN CORPUSCULAR HGB CONC 33.4 g/dl (32.0-36.5); MEAN CORPUSCULAR VOLUME 95.1 fl (80.0-96.0); PLATELET COUNT, AUTOMATED 262 10^3/uL (150-450); RED BLOOD COUNT 4.31 10^6/uL (4.30-6.10); WHITE BLOOD COUNT 5.2 10^3/uL (4.0-10.0)
[2020-04-09 07:07] LABS: ACETAMINOPHEN LEVEL < 2.0 UG/ML (10.0-30.0); ALBUMIN 3.9 GM/DL (3.2-5.2); ALT/SGPT 16 U/L (12-78); BILIRUBIN,DIRECT 0.2 MG/DL (0.0-0.2); BILIRUBIN,TOTAL 0.4 MG/DL (0.2-1.0); BLOOD UREA NITROGEN 12 MG/DL (7-18); CALCIUM LEVEL 9.2 MG/DL (8.5-10.1); CARBON DIOXIDE LEVEL 27 MEQ/L (21-32); CHLORIDE LEVEL 105 MEQ/L (98-107); CREATININE FOR GFR 1.08 MG/DL (0.70-1.30); ETHYL ALCOHOL (ETHANOL) < 0.003 % (0.000-0.010); GLOMERULAR FILTRATION RATE > 60.0 (>56); GLUCOSE, FASTING 115 MG/DL (70-100); POTASSIUM SERUM 4.2 MEQ/L (3.5-5.1); SODIUM LEVEL 136 MEQ/L (136-145); THYROID STIMULATING HORMONE 0.866 uIU/ML (0.358-3.740)
--- OUTSIDE RECORDS SUMMARY | 2020-04-09 07:31 | CCD ---
Author Author [facility] Organization [facility] Address Unknown Phone Unavailable Care Team Providers Care Traffic Checker Name Role Phone Jakub BOWIE MD Unavailable [...] Unavailable Unavailable Jakub BOWIE MD Unavailable Unavailable aJkub BOWIE MD Unavailable Unavailable Jakub BOWIE MD [...] JUDGE MD Unavailable Unavailable MANJARREZ, R PATRICK PROPERTY INSURANCE AGENT Unavailable Unavailable MANJARREZ, R PATRICK PROPERTY INSURANCE AGENT Unavailable Unavailable MANJARREZ, R PATRICK PROPERTY INSURANCE AGENT Unavailable Unavailable MANJARREZ, R PATRICK PROPERTY INSURANCE AGENT Unavailable Unavailable MANJARREZ, R PATRICK PROPERTY INSURANCE AGENT Unavailable Unavailable MANJARREZ, R PATRICK PROPERTY INSURANCE AGENT Unavailable Unavailable MANJARREZ, R PATRICK PROPERTY INSURANCE AGENT Unavailable Unavailable MANJARREZ, R PATRICK PROPERTY INSURANCE AGENT Unavailable Unavailable MANJARREZ, R PATRICK PROPERTY INSURANCE AGENT Unavailable Unavailable MANJARREZ, R PATRICK PROPERTY INSURANCE AGENT Unavailable Unavailable MANJARREZ, R PATRICK PROPERTY INSURANCE AGENT Unavailable Unavailable MANJARREZ, R PATRICK PROPERTY INSURANCE AGENT Unavailable Unavailable MANJARREZ, R PATRICK PROPERTY INSURANCE AGENT Unavailable Unavailable MANJARREZ, R PATRICK PROPERTY INSURANCE AGENT Unavailable Unavailable MANJARREZ, R PATRICK PROPERTY INSURANCE AGENT Unavailable Unavailable MANJARREZ, R PATRICK PROPERTY INSURANCE AGENT Unavailable Unavailable MANJARREZ, R PATRICK PROPERTY INSURANCE AGENT Unavailable Unavailable MANJARREZ, R PATRICK PROPERTY INSURANCE AGENT Unavailable Unavailable MANJARREZ, R PATRICK PROPERTY INSURANCE AGENT Unavailable Unavailable MANJARREZ, R PATRICK PROPERTY INSURANCE AGENT Unavailable Unavailable MANJARREZ, R PATRICK PROPERTY INSURANCE AGENT Unavailable Unavailable MANJARREZ, R PATRICK PROPERTY INSURANCE AGENT Unavailable Unavailable MANJARREZ, R PATRICK PROPERTY INSURANCE AGENT Unavailable Unavailable MANJARREZ, R PATRICK PROPERTY INSURANCE AGENT Unavailable Unavailable MANJARREZ, R PATRICK PROPERTY INSURANCE AGENT Unavailable Unavailable MANJARREZ, R PATRICK PROPERTY INSURANCE AGENT Unavailable Unavailable MANJARREZ, R PATRICK PROPERTY INSURANCE AGENT Unavailable Unavailable MANJARREZ, R PATRICK PROPERTY INSURANCE AGENT Unavailable Unavailable MANJARREZ, R PATRICK PROPERTY INSURANCE AGENT Unavailable Unavailable MANJARREZ, R PATRICK PROPERTY INSURANCE AGENT Unavailable Unavailable MANJARREZ, R PATRICK PROPERTY INSURANCE AGENT Unavailable Unavailable MANJARREZ, R PATRICK PROPERTY INSURANCE AGENT Unavailable Unavailable MANJARREZ, R PATRICK PROPERTY INSURANCE AGENT Unavailable Unavailable MANJARREZ, R PATRICK PROPERTY INSURANCE AGENT Unavailable Unavailable MANJARREZ, R PATRICK PROPERTY INSURANCE AGENT Unavailable Unavailable MANJARREZ, R PATRICK PROPERTY INSURANCE AGENT Unavailable Unavailable MANJARREZ, R PATRICK PROPERTY INSURANCE AGENT Unavailable Unavailable MANJARREZ, R PATRICK PROPERTY INSURANCE AGENT Unavailable Unavailable MANJARREZ, R PATRICK PROPERTY INSURANCE AGENT Unavailable Unavailable MANJARREZ, R PATRICK PROPERTY INSURANCE AGENT Unavailable Unavailable MANJARREZ, R PATRICK PROPERTY INSURANCE AGENT Unavailable Unavailable Poe, M Brigid PROPERTY INSURANCE AGENT Unavailable Unavailable Poe, M Brigid PROPERTY INSURANCE AGENT Unavailable Unavailable Poe, M Brigid PROPERTY INSURANCE AGENT Unavailable Unavailable Poe, M Brigid PROPERTY INSURANCE AGENT Unavailable Unavailable Poe, M Brigid PROPERTY INSURANCE AGENT Unavailable Unavailable Poe, M Brigid PROPERTY INSURANCE AGENT Unavailable Unavailable Poe, M Brigid PROPERTY INSURANCE AGENT Unavailable Unavailable Poe, M Brigid PROPERTY INSURANCE AGENT Unavailable Unavailable Poe, M Brigid PROPERTY INSURANCE AGENT Unavailable Unavailable Poe, M Brigid PROPERTY INSURANCE AGENT Unavailable Unavailable Poe, M Brigid PROPERTY INSURANCE AGENT Unavailable Unavailable Poe, M Brigid PROPERTY INSURANCE AGENT Unavailable Unavailable Poe, M Brigid PROPERTY INSURANCE AGENT Unavailable Unavailable Poe, M Brigid PROPERTY INSURANCE AGENT Unavailable Unavailable Poe, M Brigid PROPERTY INSURANCE AGENT Unavailable Unavailable Poe, M Brigid PROPERTY INSURANCE AGENT Unavailable Unavailable Poe, M Brigid PROPERTY INSURANCE AGENT Unavailable Unavailable Poe, M Brigid PROPERTY INSURANCE AGENT Unavailable Unavailable Poe, M Brigid PROPERTY INSURANCE AGENT Unavailable Unavailable Poe, M Brigid PROPERTY INSURANCE AGENT Unavailable Unavailable Poe, M Brigid PROPERTY INSURANCE AGENT Unavailable Unavailable Poe, M Brigid PROPERTY INSURANCE AGENT Unavailable Unavailable Poe, M Brigid PROPERTY INSURANCE AGENT Unavailable Unavailable Poe, M Brigid PROPERTY INSURANCE AGENT Unavailable Unavailable Poe, M Brigid PROPERTY INSURANCE AGENT Unavailable Unavailable Poe, M Brigid PROPERTY INSURANCE AGENT Unavailable Unavailable Poe, M Brigid PROPERTY INSURANCE AGENT Unavailable Unavailable Poe, M Brigid PROPERTY INSURANCE AGENT Unavailable Unavailable Poe, M Brgiid PROPERTY INSURANCE AGENT Unavailable Unavailable Poe, M Brigid PROPERTY INSURANCE AGENT Unavailable Unavailable Brooklyn Huber MD Unavailable Unavailable [...] is protected by Article 27-F of the [facility] Public Health law. If you continue you may have access to information: Regarding HIV / AIDS; Provided by facilities licensed or operated by the [facility] Office of Mental Health; or Provided by the [facility] Office for People With Developmental Disabilities. If such information is present, then the following [facility] mandated warning applies: This information has been [...] law may result in a fine or nursing home sentence or both. A general authorization for the release of medical or other information is NOT sufficient authorization for further disc losure. Allergies and Adverse Reactions Type Description Substance Reaction Status Data Source(s ) Drug allergy Dexamethasone Dexamethasone erythema Active eCW1 ( [facility]) Drug allergy Penicillin (For Allergies Use Only) Drug allergy told as a child to not take Active eCW1 ([facility]) Family History Family Member Name Family Member Gender Family Member Status Date o f Status Description Data Source(s) Unknown Male Problem MEDENT ([facility] ) Unknown Unknown Problem MEDENT ([facility], ) Unknown Unknown Problem MEDENT ([facility], ) Unknown Unknown Problem MEDENT ([facility], ) Unknown Unknown Problem MEDENT ([facility]) Encounters Encounter Providers Location Date Indications Data Source(s ) [place] [address] [facility] [address] 03/16/2020 12:00:00 AM EST eCW1 ([facility]) Outpatient Attender: NU BOWIE MD 03/10/2020 12:00:00 [facility] Unknown [address] [facility] [place] [address] 03/04/2020 12:00:00 AM EST eCW1 ([facility]) Unknown [address] [facility] [address] 03/02/2020 12:00:00 AM EST eCW1 ([facility]) Unknown [address] [facility] [place] [address] 02/23/2020 12:00:00 AM EST eCW1 ([facility]) Unknown [address] [facility] [place] [address] 02/23/2020 12:00:00 AM EST eCW1 ([facility]) Unknown [address] [facility] [address] 02/23/2020 12:00:00 AM EST eCW1 ([facility]) [place] [address] [facility] [address] 02/08/2020 12:00:00 AM EST eCW1 ([facility]) TeleMedicine Phone E/M by Phys 21-30 Min [address] [place] [address] 01/28/2020 12:00:00 AM EST eCW1 ([facility]) Outpatient Attender: NU BOWIE MD 01/28/2020 12:00:00 [facility] Unknown [address] [facility] [address] 01/27/2020 12:00:00 AM EST eCW1 ([facility]) [place] [address] [facility] [address] 01/27/2020 12:00:00 AM EST eCW1 ([facility]) Unknown [address] [facility] [address] 01/27/2020 12:00:00 AM EST eCW1 ([facility]) Unknown [address] [facility] [place] [address] 01/26/2020 12:00:00 AM EST [facility] [address] [facility] [address] 01/25/2020 12:00:00 AM EST eCW1 ([facility]) Unknown [address] [facility] [address] 01/22/2020 12:00:00 AM EST eCW1 ([facility]) Unknown [address] [facility] [place] [address] 01/20/2020 12:00:00 AM EST eCW1 ([facility]) Unknown [address] [facility] [place] [address] 01/20/2020 12:00:00 AM EST eCW1 ([facility]) ([facility]) [facility] Scheduled Visit [address] [place] [address] 01/19/2020 12:00:00 AM EST eCW1 ([facility]) Unknown [address] [facility] [place] [address] 01/19/2020 12:00:00 AM EST eCW1 ([facility]) Unknown [address] [facility] [place] [address] 01/18/2020 12:00:00 AM EST eCW1 ([facility]) Unknown [address] [facility] [place] [address] 01/18/2020 12:00:00 AM EST eCW1 ([facility]) Outpatient [address] [facility] [place] [address] 01/15/2020 12:00:00 AM EST eCW1 ([facility]) Unknown [address] [facility] [place] [address] 01/15/2020 12:00:00 AM EST eCW1 ([facility]) Unknown [address] [facility] [place] [address] 01/14/2020 12:00:00 AM EST eCW1 ([facility]) Unknown [address] [facility] [place] [address] 01/13/2020 12:00:00 AM EST eCW1 ([facility]) Unknown [address] [facility] [place] [address] 01/13/2020 12:00:00 AM EST eCW1 ([facility]) Unknown [address] [facility] [place] [address] 01/13/2020 12:00:00 AM EST [facility]CW1 [facility] Outpatient Attender: NU BOWIE MD 01/13/2020 12:00:00 A [facility] Unknown [address] [facility] [address] 01/12/2020 12:00:00 AM EST eCW1 [facility] Unknown [address] [facility] [place] [address] 01/12/2020 12:00:00 AM EST eCW1 ([facility]) Unknown [address] [facility] [address] 01/12/2020 12:00:00 AM EST eCW1 ([facility]) Unknown [address] [facility] [address] 01/11/2020 12:00:00 AM EST eCW1 ([facility]) Unknown [address] [facility] [address] 01/10/2020 12:00:00 AM EST eCW1 ([facility]) Unknown [address] [facility] [address] 01/05/2020 12:00:00 AM EST eCW1 ([facility]) Unknown [address] [facility] [address] 01/04/2020 12:00:00 AM EST eCW1 ([facility]) Unknown [address] [facility] [address] 01/02/2020 12:00:00 AM EST eCW1 ([facility]) Unknown [address] [facility] [address] 01/01/2020 12:00:00 AM EST eCW1 ([facility]) [place] [address] [facility] [address] 12/31/2019 12:00:00 AM EST eCW1 ([facility]) Unknown [address] [facility] [address] 12/29/2019 12:00:00 AM EST eCW1 ([facility]) Unknown [address] [facility] [address] 12/28/2019 12:00:00 AM EST eCW1 ([facility]) Unknown [address] [facility] [address] 12/25/2019 12:00:00 AM EST eCW1 ([facility]) Outpatient [address] [facility] [address] 12/24/2019 12:00:00 AM EST eCW1 ([facility]) Unknown [address] [facility] [address] 12/24/2019 12:00:00 AM EST eCW1 ([facility]) Unknown [address] [facility] [place] [address] 12/24/2019 12:00:00 AM EST eCW1 ([facility]) Unknown [address] [facility] [address] 12/24/2019 12:00:00 AM EST eCW1 ([facility]) Unknown [address] [facility] [place] [address] 12/24/2019 12:00:00 AM EST eCW1 ([facility]) Unknown [address] [facility] [place] [address] 12/23/2019 12:00:00 AM EST eCW1 ([facility]) Unknown [address] [facility] [address] 12/23/2019 12:00:00 AM EST eCW1 ([facility]) Unknown [address] [facility] [place] [address] 12/23/2019 12:00:00 AM EST eCW1 ([facility]) Unknown [address] [facility] [place] [address] 12/22/2019 12:00:00 AM EST eCW1 ([facility]) Unknown [address] [facility] [place] [address] 12/22/2019 12:00:00 AM EST eCW1 ([facility]) Outpatient [address] [facility] [place] [address] 12/22/2019 12:00:00 AM EST eCW1 ([facility]) Unknown [address] [facility] [place] [address] 12/22/2019 12:00:00 AM EST eCW1 ([facility]) Unknown [address] [facility] [address] 12/21/2019 12:00:00 AM EST eCW1 ([facility]) Unknown [address] [facility] [address] 12/20/2019 12:00:00 AM EST eCW1 ([facility]) Unknown [address] [facility] [address] 12/18/2019 12:00:00 AM EST eCW1 ([facility]) Unknown [address] [facility] [address] 12/18/2019 12:00:00 AM EST eCW1 ([facility]) Unknown [address] [facility] [address] 12/18/2019 12:00:00 AM EST eCW1 ([facility]) Unknown [address] [facility] [address] 12/18/2019 12:00:00 AM EST eCW1 ([facility]) Outpatient [address] [facility] [address] 12/17/2019 12:00:00 AM EST eCW1 ([facility]) (PN Proc 45) Pain Procedure 45 [address] [place] [address] 12/11/2019 12:00:00 AM EDT eCW1 ([facility]) Unknown [address] [facility] [address] 12/10/2019 12:00:00 AM EDT eCW1 ([facility]) Unknown [address] [facility] [place] [address] 12/10/2019 12:00:00 AM EDT eCW1 ([facility]) Unknown [address] [facility] [place] [address] 12/09/2019 12:00:00 AM EDT eCW1 ([facility]) Unknown [address] [facility] [address] 12/07/2019 12:00:00 AM EDT eCW1 ([facility]) Unknown [address] [facility] [address] 12/01/2019 12:00:00 AM EDT eCW1 ([facility]) Unknown [address] [facility] [address] 11/30/2019 12:00:00 AM EDT eCW1 ([facility]) Outpatient [address] [facility] [place] [address] 11/30/2019 12:00:00 AM EDT eCW1 ([facility]) Unknown [address] [facility] [place] [address] 11/29/2019 12:00:00 AM EDT eCW1 ([facility]) Outpatient [address] [facility] [place] [address] 11/24/2019 12:00:00 AM EDT eCW1 ([facility]) Unknown [address] [facility] [place] [address] 11/17/2019 12:00:00 AM EDT eCW1 ([facility]) (PN Proc 45) Pain Procedure 45 [address] [place] [address] 11/12/2019 12:00:00 AM EDT eCW1 ([facility]) Unknown [address] [facility] [address] 11/10/2019 12:00:00 AM EDT eCW1 ([facility]) Unknown [address] [facility] [address] 11/03/2019 12:00:00 AM EDT eCW1 ([facility]) Unknown [address] [facility] [place] [address] 11/03/2019 12:00:00 AM EDT eCW1 ([facility]) Unknown [address] [facility] [place] [address] 11/03/2019 12:00:00 AM EDT eCW1 ([facility]) Unknown [address] [facility] [place] [address] 11/03/2019 12:00:00 AM EDT eCW1 ([facility]) Unknown [address] [facility] [address] 11/03/2019 12:00:00 AM EDT eCW1 ([facility]) Unknown [address] [facility], [place] [address] 11/03/2019 12:00:00 AM EDT eCW1 ([facility]) [facility] [address] [facility] [place] [address] 10/09/2019 12:00:00 AM EDT eCW1 ([facility]) Outpatient Attender: Brooklyn Huber MD Main office - [place] 09/28/2019 03:10:00 PM EDT MEDENT ([facility] ) Outpatient Attender: Brooklyn Huber MD Main office - [place] 09/22/2019 11:30:00 AM EDT MEDENT ([facility] ) [facility] [address] [place] [address] 09/14/2019 12:00:00 AM EDT eCW1 ([facility]) Outpatient [address] [facility] [address] 09/04/2019 12:00:00 AM EDT eCW1 ([facility]) Unknown [address] [facility] [address] 09/03/2019 12:00:00 AM EDT eCW1 ([facility]) Unknown [address] [facility] [address] 09/01/2019 12:00:00 AM EDT eCW1 ([facility]) Outpatient [address] [facility] [place] [address] 08/31/2019 12:00:00 AM EDT eCW1 ([facility]) Unknown [address] [facility] [place] [address] 08/28/2019 12:00:00 AM EDT eCW1 ([facility]) Unknown [address] [facility] [place] [address] 08/27/2019 12:00:00 AM EDT [facility]CW[facility] Unknown [address] [facility] [place] [address] 08/27/2019 12:00:00 AM EDT eCW1 ([facility]) Unknown [address] [facility] [address] 08/26/2019 12:00:00 AM EDT [facility]CW1 [facility]) Outpatient [address] [facility] [address] 08/25/2019 12:00:00 AM EDT eCW1 ([facility]) Outpatient Attender: PATRICK MANJARREZ NP 08/25/2019 12:00:0 0 AM [facility] Unknown [address] [facility] [address] 08/19/2019 12:00:00 AM EDT eCW1 ([facility]) Outpatient Referrer: Brigid Poe NP 08/13/2019 05:20:00 AM EDT [facility] Radiology Imaging Office Visit, Est Pt., Level 3 PC [address] [place] [address] 08/13/2019 12:00:00 AM EDT eCW1 ([facility]) Outpatient [address] [facility] [address] 08/04/2019 12:00:00 AM EDT eCW1 ([facility]) Unknown [address] [facility] [address] 08/03/2019 12:00:00 AM EDT eCW1 ([facility]) [facility] [address] [place] [address] 07/30/2019 12:00:00 AM EDT eCW1 ([facility]) Outpatient Referrer: Brigid Poe NP 07/29/2019 05:54:00 AM EDT [facility] [address] [place] [address] 07/29/2019 12:00:00 AM EDT eCW1 ([facility]) Unknown [address] [facility] [address] 07/28/2019 12:00:00 AM EDT eCW1 ([facility]) Unknown [address] [facility] [place] [address] 07/24/2019 12:00:00 AM EDT eCW1 ([facility] [place]) Unknown [address] [facility] [place] [address] 07/22/2019 12:00:00 AM EDT eCW1 ([facility]) Outpatient [address] [facility] [place] [address] 07/14/2019 12:00:00 AM EDT eCW1 ([facility]) TeleMedicine Phone E/M by Zeina 11-[address] [place] [address] 07/13/2019 12:00:00 AM EDT eCW1 ([facility]) [facility] [address] [place] [address] 07/13/2019 12:00:00 AM EDT eCW1 ([facility] [place]) [facility] [address] [place] [address] 07/07/2019 12:00:00 AM EDT eCW1 ([facility] [place]) [facility] [address] [facility] [place] [address] 06/25/2019 12:00:00 AM EDT eCW1 ([facility]) [facility] [address] [place] [address] 06/24/2019 12:00:00 AM EDT eCW1 ([facility] [place]) [facility] [address] [place] [address] 06/16/2019 12:00:00 AM EDT eCW1 ([facility] [place]) [facility] [address] [place] [address] 06/12/2019 12:00:00 AM EDT eCW1 ([facility]) [facility] [address] [place] [address] 06/03/2019 12:00:00 AM EDT eCW1 ([facility]) [facility] [address] [place] [address] 06/03/2019 12:00:00 AM EDT eCW1 ([facility]) Outpatient Attender: NU BOWIE MD 06/03/2019 12:00:00 A [facility] [address] [place] [address] 05/28/2019 12:00:00 AM EDT eCW1 ([facility]) [facility] [address] [place] [address] 05/27/2019 12:00:00 AM EDT eCW1 ([facility]) [facility] [address] [place] [address] 05/27/2019 12:00:00 AM EDT eCW1 ([facility]) [address] [address] 05/22/2019 12:00:00 AM EDT eCW1 ([facility]) [facility] [address] [place] [address] 05/21/2019 12:00:00 AM EDT eCW1 ([facility]) [address] [address] 05/20/2019 12:00:00 AM EDT eCW1 ([facility]) [facility] [address] [place] [address] 05/18/2019 12:00:00 AM EDT eCW1 ([facility]) [facility] Dermatology [address] [place] [address] 05/15/2019 12:00:00 AM EDT eCW1 ([facility]) [facility] [address] [place] [address] 05/12/2019 12:00:00 AM EDT eCW1 ([facility]) [facility] [address] [place] [address] 05/12/2019 12:00:00 AM EDT eCW1 ([facility]) [facility] [address] [facility] [address] 05/08/2019 12:00:00 AM EDT eCW1 ([facility]) [facility] [address] [place] [address] 05/05/2019 12:00:00 AM EDT eCW1 ([facility]) [facility] Pain Center [address] [place] [address] 05/01/2019 12:00:00 AM EDT eCW1 ([facility]) [facility] [address] [place] [address] 04/30/2019 12:00:00 AM EDT eCW1 ([facility]) [facility] Center [address] [place] [address] 04/30/2019 12:00:00 AM EDT eCW1 ([facility]) [facility] [address] [place] [address] 04/21/2019 12:00:00 AM EDT eCW1 ([facility]) [facility] [address] [place] [address] 04/16/2019 12:00:00 AM EST eCW1 ([facility]) [facility] [address] [place] [phone] 04/15/2019 12:00:00 AM EST eCW1 ([facility]) [facility] [address] [place] [phone] 04/14/2019 12:00:00 AM EST eCW1 ([facility]) [facility] Center [address] [place] [address] 04/09/2019 12:00:00 AM EST eCW1 ([facility] [place]) [facility] [facility] [address] [place] [phone] 04/08/2019 12:00:00 AM EST eCW1 [facility]) Outpatient Referrer: Brigid Poe NP 04/07/2019 08:15:00 AM EST [facility] [address] [place] [phone] 04/07/2019 12:00:00 AM EST eCW1 ([facility] [address] [phone] 04/06/2019 12:00:00 AM EST eCW1 ([facility]) [facility] [address] [place] [phone] 04/02/2019 12:00:00 AM EST eCW1 ([facility]) Outpatient Attender: NU BOWIE MD [id number] 2019 12:00:00 AM EST - 04/20/2019 07:15:28 AM EDT Lesion of ulnar nerve, right upper limb [facility] Lesion of ulnar nerve, right upper limb [facility] [address] [place] [phone] 03/31/2019 12:00:00 AM EST eCW1 ([facility]) [facility] [address] [place] [phone] 03/27/2019 12:00:00 AM EST eCW1 ([facility]) [facility] [address] [place] [phone] 03/26/2019 12:00:00 AM EST eCW1 ([facility]) [facility] [address] [place] [phone] 03/26/2019 12:00:00 AM EST eCW1 ([facility]) [facility] [address] [place] [phone] 03/25/2019 12:00:00 AM EST [facility]CW1 [facility]) [facility] [address] [place] [phone] 03/25/2019 12:00:00 AM EST eCW1 ([facility]) [facility] [address] [place] [phone] 03/23/2019 12:00:00 AM EST eCW1 ([facility]) [facility] [address] [place] [phone] 03/10/2019 12:00:00 AM EST eCW1 ([facility]) Outpatient Attender: NU BOWIE MD 03/05/2019 12:00:00 A [facility] [address] [place] [phone] 03/02/2019 12:00:00 AM EST eCW1 ([facility]) [facility] [address] [place] [phone] 02/27/2019 12:00:00 AM EST eCW1 ([facility]) [facility] [address] [place] [phone] 02/24/2019 12:00:00 AM EST eCW1 ([facility]) [facility] [address] [place] [phone] 02/23/2019 12:00:00 AM EST eCW1 ([facility]) [facility] [address] [place] [phone] 02/16/2019 12:00:00 AM EST eCW1 ([facility]) [facility] [address] [place] [phone] 02/13/2019 12:00:00 AM EST eCW1 ([facility]) [facility] [address] [place] [phone] 02/13/2019 12:00:00 AM EST eCW1 ([facility]) [facility] [address] [place] [phone] 02/12/2019 12:00:00 AM EST eCW1 ([facility]) Immunizations Vaccine Date Status Description Data Source(s) influenza, recombinant, quadrIvalent,injectable, prese rvative free 01/15/2020 10:57:00 AM EST completed eCW1 ([facility]) influenza, recombinant, quadrIvalent,injectable, prese rvative free 01/15/2020 10:57:00 AM EST completed eCW1 ([facility]) influenza, recombinant, quadrIvalent,injectable, prese rvative free 01/15/2020 10:57:00 AM EST completed eCW1 ([facility]) influenza, recombinant, quadrIvalent,injectable, prese rvative free 01/15/2020 10:57:00 AM EST completed eCW1 ([facility]) influenza, recombinant, quadrIvalent,injectable, prese rvative free 01/15/2020 10:57:00 AM EST completed eCW1 ([facility]) influenza, recombinant, quadrIvalent,injectable, prese rvative free 01/15/2020 10:57:00 AM EST completed eCW1 ([facility]) influenza, recombinant, quadrIvalent,injectable, prese rvative free 01/15/2020 10:57:00 AM EST completed eCW1 ([facility]) influenza, recombinant, quadrIvalent,injectable, prese rvative free 01/15/2020 10:57:00 AM EST completed eCW1 ([facility]) influenza, recombinant, quadrIvalent,injectable, prese rvative free 01/15/2020 10:57:00 AM EST completed eCW1 ([facility]) influenza, recombinant, quadrIvalent,injectable, prese rvative free 01/15/2020 10:57:00 AM EST completed eCW1 ([facility]) influenza, recombinant, quadrIvalent,injectable, prese rvative free 01/15/2020 10:57:00 AM EST completed eCW1 ([facility]) influenza, recombinant, quadrIvalent,injectable, prese rvative free 01/15/2020 10:57:00 AM EST completed eCW1 ([facility]) influenza, recombinant, quadrIvalent,injectable, prese rvative free 01/15/2020 10:57:00 AM EST completed eCW1 ([facility]) influenza, recombinant, quadrIvalent,injectable, prese rvative free 01/15/2020 10:57:00 AM EST completed eCW1 ([facility]) influenza, recombinant, quadrIvalent,injectable, prese rvative free 01/15/2020 10:57:00 AM EST completed eCW1 ([facility]) influenza, recombinant, quadrIvalent,injectable, prese rvative free 01/15/2020 10:57:00 AM EST completed eCW1 ([facility]) influenza, recombinant, quadrIvalent,injectable, prese rvative free 01/15/2020 10:57:00 AM EST completed eCW1 ([facility]) influenza, recombinant, quadrIvalent,injectable, prese rvative free 01/15/2020 10:57:00 AM EST completed eCW1 ([facility]) influenza, recombinant, quadrIvalent,injectable, prese rvative free 01/15/2020 10:57:00 AM EST completed eCW1 ([facility]) influenza, recombinant, quadrIvalent,injectable, prese rvative free 01/15/2020 10:57:00 AM EST completed eCW1 ([facility]) influenza, recombinant, quadrIvalent,injectable, prese rvative free 01/15/2020 10:57:00 AM EST completed eCW1 ([facility]) influenza, recombinant, quadrIvalent,injectable, prese rvative free 01/15/2020 10:57:00 AM EST completed eCW1 ([facility]) influenza, recombinant, quadrIvalent,injectable, prese rvative free 01/15/2020 10:57:00 AM EST completed eCW1 ([facility]) influenza, recombinant, quadrIvalent,injectable, prese rvative free 01/15/2020 10:57:00 AM EST completed eCW1 ([facility]) influenza, recombinant, quadrIvalent,injectable, prese rvative free 01/15/2020 10:57:00 AM EST completed eCW1 ([facility]) influenza, recombinant, quadrIvalent,injectable, prese rvative free 01/15/2020 10:57:00 AM EST completed eCW1 ([facility]) Medications Medication Brand Name Start [...] MOUTH AT BEDTIME FOR PSYCHOSIS SOLD: 03/08/2020 [facility] olanzapine 7.5 MG Oral Tablet OLANZAPINE 03/08/2020 12:00:00 AM EST ta blet 7 TAKE ONE TABLET BY MOUTH AT BEDTIME FOR PSYCHOSIS TAKE ONE TABLET BY MOUTH AT BEDTIME FOR PSYCHOSIS SOLD: 03/15/2020 [facility] 2 mg 03/07/2020 12:00:00 AM [...] MOUTH AT BEDTIME FOR PSYCHOSIS SOLD: 03/07/2020 [facility] olanzapine 10 MG Oral Tablet OLANZAPINE 03/07/2020 12:00:00 AM EST tab let 7 TAKE ONE TABLET BY MOUTH AT BEDTIME FOR PSYCHOSIS TAKE ONE TABLET BY MOUTH AT BEDTIME FOR PSYCHOSIS SOLD: 03/13/2020 [facility] Amitriptyline Hydrochloride 25 MG Oral Tablet AMITRIPTYLINE HCL 03/07/2020 12:00:00 AM EST tablet 7 TAKE ONE TABLET BY MOUTH AT BEDTIME FOR MOOD/SLEEP TAKE ONE TABLET BY MOUTH AT BEDTIME FOR MOOD/SLEEP SOLD: 03/07/2020 [facility] buspirone hydrochloride 10 MG Oral Tablet BUSPIRONE HCL 03/07/2020 12:00:00 AM EST tablet 14 TAKE ONE TABLET BY MOUTH TWI CE A DAY FOR ANXIETY TAKE ONE TABLET BY MOUTH TWICE A DAY FOR ANXIETY SOLD: 04/04/2020 [facility] buspirone hydrochloride 10 MG Oral Tablet BUSPIRONE HCL 03/07/2020 12:00:00 AM EST tablet 14 TAKE ONE TABLET BY MOUTH TWI CE A DAY FOR ANXIETY TAKE ONE TABLET BY MOUTH TWICE A DAY FOR ANXIETY SOLD: 03/30/2020 [facility] buspirone hydrochloride 10 MG Oral Tablet BUSPIRONE HCL 03/07/2020 12:00:00 AM EST tablet 14 TAKE ONE TABLET BY MOUTH TWI CE A DAY FOR ANXIETY TAKE ONE TABLET BY MOUTH TWICE A DAY FOR ANXIETY SOLD: 03/18/2020 [facility] buspirone hydrochloride 10 MG Oral Tablet BUSPIRONE HCL 03/07/2020 12:00:00 AM EST tablet 14 TAKE ONE TABLET BY MOUTH TWI CE A DAY FOR ANXIETY TAKE ONE TABLET BY MOUTH TWICE A DAY FOR ANXIETY SOLD: 03/13/2020 [facility] buspirone hydrochloride 10 MG Oral Tablet BUSPIRONE HCL 03/07/2020 12:00:00 AM EST tablet 14 TAKE ONE TABLET BY MOUTH TWI CE A DAY FOR ANXIETY TAKE ONE TABLET BY MOUTH TWICE A DAY FOR ANXIETY SOLD: 03/07/2020 [facility] 5 mg 03/07/2020 12:00:00 AM EST [...] {tablet_as_needed} active Percocet 10-3 25 MG eCW1 ([facility]) Acetaminophen 325 MG / Oxycodone Hydroch loride 10 MG Oral Tablet [Percocet] Percocet 10-325 MG Percocet 10-325 MG 02/23/2020 12:00:00 AM EST 1.0 {tablet_as_needed} active Percocet 10-3 25 MG eCW1 ([facility]) Morphine Sulfate 15 MG Oral Tablet Morphine Sulfate 15 MG 12:00:00 AM EST 1.0 {tablet_as_needed} active M orphine Sulfate 15 MG eCW1 ([facility]) Acetaminophen 325 MG / Oxycodone Hydroch loride 10 MG Oral Tablet [Percocet] Percocet 10-325 MG Percocet 10-325 MG 02/23/2020 12:00:00 AM EST 1.0 {tablet_as_needed} active Percocet 10-3 25 MG eCW1 ([facility]) Morphine Sulfate 15 MG Oral Tablet Morphine Sulfate 15 MG 12:00:00 AM EST 1.0 {tablet_as_needed} active M orphine Sulfate 15 MG eCW1 ([facility]) Acetaminophen 325 MG / Oxycodone Hydroch loride 10 MG Oral Tablet [Percocet] Percocet 10-325 MG Percocet 10-325 MG 02/23/2020 12:00:00 AM EST 1.0 {tablet_as_needed} active Percocet 10-3 25 MG eCW1 ([facility]) Morphine Sulfate 15 MG Oral Tablet Morphine Sulfate 15 MG 12:00:00 AM EST 1.0 {tablet_as_needed} active M orphine Sulfate 15 MG eCW1 ([facility]) Morphine Sulfate 15 MG Oral Tablet Morphine Sulfate 15 MG 12:00:00 AM EST 1.0 {tablet_as_needed} active M orphine Sulfate 15 MG eCW1 ([facility]) Morphine Sulfate 15 MG Oral Tablet Morphine Sulfate 15 MG 12:00:00 AM EST 1.0 {tablet_as_needed} active M orphine Sulfate 15 MG eCW1 ([facility]) Acetaminophen 325 MG / Oxycodone Hydroch loride 10 MG Oral Tablet [Percocet] Percocet 10-325 MG Percocet 10-325 MG 02/23/2020 12:00:00 AM EST 1.0 {tablet_as_needed} active Percocet 10-3 25 MG eCW1 ([facility]) Acetaminophen 325 MG / Oxycodone Hydroch loride 10 MG Oral Tablet [Percocet] Percocet 10-325 MG Percocet 10-325 MG 02/23/2020 12:00:00 AM EST 1.0 {tablet_as_needed} active Percocet 10-3 25 MG eCW1 ([facility]) Morphine Sulfate 15 MG Oral Tablet Morphine Sulfate 15 MG 12:00:00 AM EST 1.0 {tablet_as_needed} active M orphine Sulfate 15 MG eCW1 ([facility]) Budesonide 180 MCG/ACT UNK 02/16/2020 12:00:00 AM EST 1.0 {puff } active Budesonide 180 MCG/ACT eCW1 ([facility]) Budesonide 180 MCG/ACT UNK 02/16/2020 12:00:00 AM EST 1.0 {puff } active Budesonide 180 MCG/ACT eCW1 ([facility]) Budesonide 180 MCG/ACT UNK 02/16/2020 12:00:00 AM EST 1.0 {puff } active Budesonide 180 MCG/ACT eCW1 ([facility]) Budesonide 180 MCG/ACT UNK 02/16/2020 12:00:00 AM EST 1.0 {puff } active Budesonide 180 MCG/ACT eCW1 ([facility]) Budesonide 180 MCG/ACT UNK 02/16/2020 12:00:00 AM EST 1.0 {puff } active Budesonide 180 MCG/ACT eCW1 ([facility]) Budesonide 180 MCG/ACT UNK 02/16/2020 12:00:00 AM EST 1.0 {puff } active Budesonide 180 MCG/ACT eCW1 ([facility]) 2 mg 02/09/2020 12:00:00 AM EST tablet [...] {ml_as_needed} active Ipratropium-Albuterol 0.5-2.5 (3) MG/3ML eCW1 ([facility]) Albuterol 0.833 MG/ML / Ipratropium Brom krish 0.167 MG/ML Inhalant Solution Ipratropium-Albuterol 0.5-2.5 (3) MG/3ML Ipratropium-Albuterol 0.5-2.5 (3) MG/3ML 01/28/2020 12:00:00 AM EST 3.0 {ml_as_needed} active Ipratropium-Albuterol 0.5-2.5 (3) MG/3ML eCW1 ([facility]) Albuterol 0.833 MG/ML / Ipratropium Brom krish 0.167 MG/ML Inhalant Solution Ipratropium-Albuterol 0.5-2.5 (3) MG/3ML Ipratropium-Albuterol 0.5-2.5 (3) MG/3ML 01/28/2020 12:00:00 AM EST 3.0 {ml_as_needed} active Ipratropium-Albuterol 0.5-2.5 (3) MG/3ML eCW1 ([facility]) Albuterol 0.833 MG/ML / Ipratropium Brom krish 0.167 MG/ML Inhalant Solution Ipratropium-Albuterol 0.5-2.5 (3) MG/3ML Ipratropium-Albuterol 0.5-2.5 (3) MG/3ML 01/28/2020 12:00:00 AM EST 3.0 {ml_as_needed} active Ipratropium-Albuterol 0.5-2.5 (3) MG/3ML eCW1 ([facility]) Albuterol 0.833 MG/ML / Ipratropium Brom krish 0.167 MG/ML Inhalant Solution Ipratropium-Albuterol 0.5-2.5 (3) MG/3ML Ipratropium-Albuterol 0.5-2.5 (3) MG/3ML 01/28/2020 12:00:00 AM EST 3.0 {ml_as_needed} active Ipratropium-Albuterol 0.5-2.5 (3) MG/3ML eCW1 ([facility]) Albuterol 0.833 MG/ML / Ipratropium Brom krish 0.167 MG/ML Inhalant Solution Ipratropium-Albuterol 0.5-2.5 (3) MG/3ML Ipratropium-Albuterol 0.5-2.5 (3) MG/3ML 01/28/2020 12:00:00 AM EST 3.0 {ml_as_needed} active Ipratropium-Albuterol 0.5-2.5 (3) MG/3ML eCW1 ([facility]) Albuterol 0.833 MG/ML / Ipratropium Brom krish 0.167 MG/ML Inhalant Solution Ipratropium-Albuterol 0.5-2.5 (3) MG/3ML Ipratropium-Albuterol 0.5-2.5 (3) MG/3ML 01/28/2020 12:00:00 AM EST 3.0 {ml_as_needed} active Ipratropium-Albuterol 0.5-2.5 (3) MG/3ML eCW1 ([facility]) Albuterol 0.833 MG/ML / Ipratropium Brom krish 0.167 MG/ML Inhalant Solution Ipratropium-Albuterol 0.5-2.5 (3) MG/3ML Ipratropium-Albuterol 0.5-2.5 (3) MG/3ML 01/28/2020 12:00:00 AM EST 3.0 {ml_as_needed} active Ipratropium-Albuterol 0.5-2.5 (3) MG/3ML eCW1 ([facility]) Albuterol 0.833 MG/ML / Ipratropium Brom krish 0.167 MG/ML Inhalant Solution Ipratropium-Albuterol 0.5-2.5 (3) MG/3ML Ipratropium-Albuterol 0.5-2.5 (3) MG/3ML 01/28/2020 12:00:00 AM EST 3.0 {ml_as_needed} active Ipratropium-Albuterol 0.5-2.5 (3) MG/3ML eCW1 ([facility]) Albuterol 0.833 MG/ML / Ipratropium Brom krish 0.167 MG/ML Inhalant Solution Ipratropium-Albuterol 0.5-2.5 (3) MG/3ML Ipratropium-Albuterol 0.5-2.5 (3) MG/3ML 01/28/2020 12:00:00 AM EST 3.0 {ml_as_needed} active Ipratropium-Albuterol 0.5-2.5 (3) MG/3ML eCW1 ([facility]) Albuterol 0.833 MG/ML / Ipratropium Brom krish 0.167 MG/ML Inhalant Solution Ipratropium-Albuterol 0.5-2.5 (3) MG/3ML Ipratropium-Albuterol 0.5-2.5 (3) MG/3ML 01/28/2020 12:00:00 AM EST 3.0 {ml_as_needed} active Ipratropium-Albuterol 0.5-2.5 (3) MG/3ML eCW1 ([facility]) Albuterol 0.833 MG/ML / Ipratropium Brom krish 0.167 MG/ML Inhalant Solution Ipratropium-Albuterol 0.5-2.5 (3) MG/3ML Ipratropium-Albuterol 0.5-2.5 (3) MG/3ML 01/28/2020 12:00:00 AM EST 3.0 {ml_as_needed} active Ipratropium-Albuterol 0.5-2.5 (3) MG/3ML eCW1 ([facility]) Morphine Sulfate 15 MG Oral Tablet Morphine Sulfate 15 MG 12:00:00 AM EST 1.0 {tablet_as_needed} active M orphine Sulfate 15 MG eCW1 ([facility]) Morphine Sulfate 15 MG Oral Tablet Morphine Sulfate 15 MG 12:00:00 AM EST 1.0 {tablet_as_needed} active M orphine Sulfate 15 MG eCW1 ([facility]) Morphine Sulfate 15 MG Oral Tablet Morphine Sulfate 15 MG 12:00:00 AM EST 1.0 {tablet_as_needed} active M orphine Sulfate 15 MG eCW1 ([facility]) Morphine Sulfate 15 MG Oral Tablet Morphine Sulfate 15 MG 12:00:00 AM EST 1.0 {tablet_as_needed} active M orphine Sulfate 15 MG eCW1 ([facility]) Morphine Sulfate 15 MG Extended Release Oral Tablet Mo rphine Sulfate ER 15 MG Morphine Sulfate ER 15 MG 01/27/2020 12:00:00 AM EST 1.0 {tablet} active Morphine Sulfate ER 15 MG eCW1 ( [facility]) Morphine Sulfate 15 MG Oral Tablet Morphine Sulfate 15 MG 12:00:00 AM EST 1.0 {tablet_as_needed} active M orphine Sulfate 15 MG eCW1 ([facility]) Morphine Sulfate ER 15 MG UNK 01/27/2020 12:00:00 AM EST 1.0 {tablet} active Morphine Sulfate ER 15 MG eCW1 ( [facility]) Morphine Sulfate ER 15 MG UNK 01/27/2020 12:00:00 AM EST 1.0 {tablet} active Morphine Sulfate ER 15 MG eCW1 ( [facility]) Morphine Sulfate 15 MG Oral Tablet Morphine Sulfate 15 MG 12:00:00 AM EST 1.0 {tablet_as_needed} active M orphine Sulfate 15 MG eCW1 ([facility]) Morphine Sulfate 15 MG Oral Tablet Morphine Sulfate 15 MG 12:00:00 AM EST 1.0 {tablet_as_needed} active M orphine Sulfate 15 MG eCW1 ([facility]) Morphine Sulfate 15 MG Oral Tablet Morphine Sulfate 15 MG 12:00:00 AM EST 1.0 {tablet_as_needed} active M orphine Sulfate 15 MG eCW1 ([facility]) 15 mg 01/27/2020 12:00:00 AM EST [...] Morphine Sulfate ER 15 MG eCW1 ( [facility]) Morphine Sulfate ER 15 MG UNK 01/26/2020 12:00:00 AM EST 1.0 {tablet} active Morphine Sulfate ER 15 MG eCW1 ( [facility]) Acetaminophen 325 MG / Oxycodone Hydroch loride 10 MG Oral Tablet [Percocet] Percocet 10-325 MG Percocet 10-325 MG 01/22/2020 12:00:00 AM EST 1.0 {tablet_as_needed} active Percocet 10-3 25 MG eCW1 ([facility]) Acetaminophen 325 MG / Oxycodone Hydroch loride 10 MG Oral Tablet [Percocet] Percocet 10-325 MG Percocet 10-325 MG 01/22/2020 12:00:00 AM EST 1.0 {tablet_as_needed} suspended Percocet 10 -325 MG eCW1 ([facility]) Acetaminophen 325 MG / Oxycodone Hydroch loride 10 MG Oral Tablet [Percocet] Percocet 10-325 MG Percocet 10-325 MG 01/22/2020 12:00:00 AM EST 1.0 {tablet_as_needed} suspended Percocet 10 -325 MG eCW1 ([facility]) Acetaminophen 325 MG / Oxycodone Hydroch loride 10 MG Oral Tablet [Percocet] Percocet 10-325 MG Percocet 10-325 MG 01/22/2020 12:00:00 AM EST 1.0 {tablet_as_needed} active Percocet 10-3 25 MG eCW1 ([facility]) Acetaminophen 325 MG / Oxycodone Hydroch loride 10 MG Oral Tablet [Percocet] Percocet 10-325 MG Percocet 10-325 MG 01/22/2020 12:00:00 AM EST 1.0 {tablet_as_needed} active Percocet 10-3 25 MG eCW1 ([facility]) Acetaminophen 325 MG / Oxycodone Hydroch loride 10 MG Oral Tablet [Percocet] Percocet 10-325 MG Percocet 10-325 MG 01/22/2020 12:00:00 AM EST 1.0 {tablet_as_needed} active Percocet 10-3 25 MG eCW1 ([facility]) Acetaminophen 325 MG / Oxycodone Hydroch loride 10 MG Oral Tablet [Percocet] Percocet 10-325 MG Percocet 10-325 MG 01/22/2020 12:00:00 AM EST 1.0 {tablet_as_needed} suspended Percocet 10 -325 MG eCW1 ([facility]) 10-325 mg 01/22/2020 12:00:00 AM EST [...] {tablet_as_needed} suspended Percocet 10 -325 MG eCW1 ([facility]) Acetaminophen 325 MG / Oxycodone Hydroch loride 10 MG Oral Tablet [Percocet] Percocet 10-325 MG Percocet 10-325 MG 01/22/2020 12:00:00 AM EST 1.0 {tablet_as_needed} active Percocet 10-3 25 MG eCW1 ([facility]) Acetaminophen 325 MG / Oxycodone Hydroch loride 10 MG Oral Tablet [Percocet] Percocet 10-325 MG Percocet 10-325 MG 01/22/2020 12:00:00 AM EST 1.0 {tablet_as_needed} active Percocet 10-3 25 MG eCW1 ([facility]) Acetaminophen 325 MG / Oxycodone Hydroch loride 10 MG Oral Tablet [Percocet] Percocet 10-325 MG Percocet 10-325 MG 01/22/2020 12:00:00 AM EST 1.0 {tablet_as_needed} suspended Percocet 10 -325 MG eCW1 ([facility]) Acetaminophen 325 MG / Oxycodone Hydroch loride 10 MG Oral Tablet [Percocet] Percocet 10-325 MG Percocet 10-325 MG 01/22/2020 12:00:00 AM EST 1.0 {tablet_as_needed} suspended Percocet 10 -325 MG eCW1 ([facility]) Acetaminophen 325 MG / Oxycodone Hydroch loride 10 MG Oral Tablet [Percocet] Percocet 10-325 MG Percocet 10-325 MG 01/22/2020 12:00:00 AM EST 1.0 {tablet_as_needed} active Percocet 10-3 25 MG eCW1 ([facility]) Morphine Sulfate ER 15 MG UNK 01/20/2020 12:00:00 AM EST 1.0 {tablet} active Morphine Sulfate ER 15 MG eCW1 ( [facility]) Morphine Sulfate ER 15 MG UNK 01/20/2020 12:00:00 AM EST 1.0 {tablet} active Morphine Sulfate ER 15 MG eCW1 ( [facility]) Morphine Sulfate ER 15 MG UNK 01/20/2020 12:00:00 AM EST 1.0 {tablet} active Morphine Sulfate ER 15 MG eCW1 ( [facility]) 1 gram 01/20/2020 12:00:00 AM EST tablet 90 TAKE ONE TABLET BY MOUTH THREE TIMES A DAY ON EMPTY STOMACH BEFORE MEAL TAKE ONE TABLET BY MOUTH THREE TIMES A DAY ON EMPTY STOMACH BEFORE MEAL SOLD: 01/21/2020 [facility] Morphine Sulfate ER 15 MG UNK 01/20/2020 12:00:00 AM EST 1.0 {tablet} active Morphine Sulfate ER 15 MG eCW1 ( [facility]) Morphine Sulfate ER 15 MG UNK 01/20/2020 12:00:00 AM EST 1.0 {tablet} active Morphine Sulfate ER 15 MG eCW1 ( [facility]) Morphine Sulfate ER 15 MG UNK 01/20/2020 12:00:00 AM EST 1.0 {tablet} active Morphine Sulfate ER 15 MG eCW1 ( [facility]) Morphine Sulfate ER 15 MG UNK 01/20/2020 12:00:00 AM EST 1.0 {tablet} active Morphine Sulfate ER 15 MG eCW1 ( [facility]) 1 gram 01/16/2020 12:00:00 AM EST tablet 30 TAKE ONE TABLET BY MOUTH ON AN EMPTY STOMACH BEFORE EACH MEAL TAKE ONE TABLET BY MOUTH ON AN EMPTY STO MACH BEFORE EACH MEAL SOLD: 01/20/2020 [facility] 40 mg 01/16/2020 12:00:00 AM EST capsule,delayed release (DR/EC) 30 TAKE ONE CAPSULE BY MOUTH 30 MINUTES BEFORE MORNING MEAL TAKE ONE CAPSULE BY MOUTH 30 MINUTES BEFORE MORNING MEAL SOLD: 01/20/2020 [facility] duloxetine 30 MG Delayed Release Oral Capsule [Cymbalt a] Cymbalta 30 MG Cymbalta 30 MG 01/13/2020 12:00:00 AM EST 1.0 {capsule} acti ve Cymbalta 30 MG eCW1 ([facility]) duloxetine 30 MG Delayed Release Oral Capsule [Cymbalt a] Cymbalta 30 MG Cymbalta 30 MG 01/13/2020 12:00:00 AM EST 1.0 {capsule} acti ve Cymbalta 30 MG eCW1 ([facility]) 30 mg 01/13/2020 12:00:00 AM EST capsule,delayed release (DR/EC) 60 TAKE ONE CAPSULE BY MOUTH TWICE A DAY TAKE ONE CAPSULE BY MOUTH TWICE A DAY SOLD: 01/20/2020 [facility] duloxetine 30 MG Delayed Release Oral Capsule [Cymbalt a] Cymbalta 30 MG Cymbalta 30 MG 01/13/2020 12:00:00 AM EST 1.0 {capsule} acti ve Cymbalta 30 MG eCW1 ([facility]) duloxetine 30 MG Delayed Release Oral Capsule [Cymbalt a] Cymbalta 30 MG Cymbalta 30 MG 01/13/2020 12:00:00 AM EST 1.0 {capsule} acti ve Cymbalta 30 MG eCW1 ([facility]) 30 mg 01/12/2020 12:00:00 AM EST [...] suspended Spiriva R espimat 1.25 MCG/ACT eCW1 ([facility]) Spiriva Respimat 1.25 MCG/ACT Spiriva Respimat 1.25 MCG/ACT 12/29/2019 12:00:00 AM EST 2.0 {puffs} active Spiriva Resp imat 1.25 MCG/ACT eCW1 ([facility]) 250 mg 12/29/2019 12:00:00 AM EST tablet 30 TAKE ONE-HALF TABLET BY MOUTH TWICE A DAY TAKE ONE-HALF TABLET BY MOUTH TWICE A DAY SOLD: 12/29/2019 [facility] Spiriva Respimat 1.25 MCG/ACT Spiriva Respimat 1.25 MCG/ACT 12/29/2019 12:00:00 AM EST 2.0 {puffs} active Spiriva Resp imat 1.25 MCG/ACT eCW1 ([facility]) Spiriva Respimat 1.25 MCG/ACT Spiriva Respimat 1.25 MCG/ACT 12/29/2019 12:00:00 AM EST 2.0 {puffs} active Spiriva Resp imat 1.25 MCG/ACT eCW1 ([facility]) Spiriva Respimat 1.25 MCG/ACT Spiriva Respimat 1.25 MCG/ACT 12/29/2019 12:00:00 AM EST 2.0 {puffs} active Spiriva Resp imat 1.25 MCG/ACT eCW1 ([facility]) Spiriva Respimat 1.25 MCG/ACT Spiriva Respimat 1.25 MCG/ACT 12/29/2019 12:00:00 AM EST 2.0 {puffs} active Spiriva Resp imat 1.25 MCG/ACT eCW1 ([facility]) Spiriva Respimat 1.25 MCG/ACT Spiriva Respimat 1.25 MCG/ACT 12/29/2019 12:00:00 AM EST 2.0 {puffs} active Spiriva Resp imat 1.25 MCG/ACT eCW1 ([facility]) Spiriva Respimat 1.25 MCG/ACT Spiriva Respimat 1.25 MCG/ACT 12/29/2019 12:00:00 AM EST 2.0 {puffs} suspended Spiriva R espimat 1.25 MCG/ACT eCW1 ([facility]) Spiriva Respimat 1.25 MCG/ACT Spiriva Respimat 1.25 MCG/ACT 12/29/2019 12:00:00 AM EST 2.0 {puffs} suspended Spiriva R espimat 1.25 MCG/ACT eCW1 ([facility]) Spiriva Respimat 1.25 MCG/ACT Spiriva Respimat 1.25 MCG/ACT 12/29/2019 12:00:00 AM EST 2.0 {puffs} active Spiriva Resp imat 1.25 MCG/ACT eCW1 ([facility]) Spiriva Respimat 1.25 MCG/ACT Spiriva Respimat 1.25 MCG/ACT 12/29/2019 12:00:00 AM EST 2.0 {puffs} active Spiriva Resp imat 1.25 MCG/ACT eCW1 ([facility]) Spiriva Respimat 1.25 MCG/ACT Spiriva Respimat 1.25 MCG/ACT 12/29/2019 12:00:00 AM EST 2.0 {puffs} active Spiriva Resp imat 1.25 MCG/ACT eCW1 ([facility]) Spiriva Respimat 1.25 MCG/ACT Spiriva Respimat 1.25 MCG/ACT 12/29/2019 12:00:00 AM EST 2.0 {puffs} active Spiriva Resp imat 1.25 MCG/ACT eCW1 ([facility]) Spiriva Respimat 1.25 MCG/ACT Spiriva Respimat 1.25 MCG/ACT 12/29/2019 12:00:00 AM EST 2.0 {puffs} active Spiriva Resp imat 1.25 MCG/ACT eCW1 ([facility]) Spiriva Respimat 1.25 MCG/ACT Spiriva Respimat 1.25 MCG/ACT 12/29/2019 12:00:00 AM EST 2.0 {puffs} suspended Spiriva R espimat 1.25 MCG/ACT eCW1 ([facility]) Spiriva Respimat 1.25 MCG/ACT Spiriva Respimat 1.25 MCG/ACT 12/29/2019 12:00:00 AM EST 2.0 {puffs} active Spiriva Resp imat 1.25 MCG/ACT eCW1 ([facility]) Spiriva Respimat 1.25 MCG/ACT Spiriva Respimat 1.25 MCG/ACT 12/29/2019 12:00:00 AM EST 2.0 {puffs} active Spiriva Resp imat 1.25 MCG/ACT eCW1 ([facility]) Spiriva Respimat 1.25 MCG/ACT Spiriva Respimat 1.25 MCG/ACT 12/29/2019 12:00:00 AM EST 2.0 {puffs} active Spiriva Resp imat 1.25 MCG/ACT eCW1 ([facility]) Spiriva Respimat 1.25 MCG/ACT Spiriva Respimat 1.25 MCG/ACT 12/29/2019 12:00:00 AM EST 2.0 {puffs} active Spiriva Resp imat 1.25 MCG/ACT eCW1 ([facility]) Spiriva Respimat 1.25 MCG/ACT Spiriva Respimat 1.25 MCG/ACT 12/29/2019 12:00:00 AM EST 2.0 {puffs} active Spiriva Resp imat 1.25 MCG/ACT eCW1 ([facility]) Spiriva Respimat 1.25 MCG/ACT Spiriva Respimat 1.25 MCG/ACT 12/29/2019 12:00:00 AM EST 2.0 {puffs} active Spiriva Resp imat 1.25 MCG/ACT eCW1 ([facility]) Spiriva Respimat 1.25 MCG/ACT Spiriva Respimat 1.25 MCG/ACT 12/29/2019 12:00:00 AM EST 2.0 {puffs} suspended Spiriva R espimat 1.25 MCG/ACT eCW1 ([facility]) Spiriva Respimat 1.25 MCG/ACT Spiriva Respimat 1.25 MCG/ACT 12/29/2019 12:00:00 AM EST 2.0 {puffs} active Spiriva Resp imat 1.25 MCG/ACT eCW1 ([facility]) Spiriva Respimat 1.25 MCG/ACT Spiriva Respimat 1.25 MCG/ACT 12/29/2019 12:00:00 AM EST 2.0 {puffs} active Spiriva Resp imat 1.25 MCG/ACT eCW1 ([facility]) Spiriva Respimat 1.25 MCG/ACT Spiriva Respimat 1.25 MCG/ACT 12/29/2019 12:00:00 AM EST 2.0 {puffs} active Spiriva Resp imat 1.25 MCG/ACT eCW1 ([facility]) Spiriva Respimat 1.25 MCG/ACT Spiriva Respimat 1.25 MCG/ACT 12/29/2019 12:00:00 AM EST 2.0 {puffs} active Spiriva Resp imat 1.25 MCG/ACT eCW1 ([facility]) Spiriva Respimat 1.25 MCG/ACT Spiriva Respimat 1.25 MCG/ACT 12/29/2019 12:00:00 AM EST 2.0 {puffs} active Spiriva Resp imat 1.25 MCG/ACT eCW1 ([facility]) Spiriva Respimat 1.25 MCG/ACT Spiriva Respimat 1.25 MCG/ACT 12/29/2019 12:00:00 AM EST 2.0 {puffs} active Spiriva Resp imat 1.25 MCG/ACT eCW1 ([facility]) 20 mg 12/29/2019 12:00:00 AM EST tablet 90 TAKE ONE TABLET BY MOUTH THREE TIMES A DAY TAKE ONE TABLET BY MOUTH THREE TIMES A DAY SOLD: 01/26/2020 [facility] Spiriva Respimat 1.25 MCG/ACT Spiriva Respimat 1.25 MCG/ACT 12/29/2019 12:00:00 AM EST 2.0 {puffs} suspended Spiriva R espimat 1.25 MCG/ACT eCW1 ([facility]) Spiriva Respimat 1.25 MCG/ACT Spiriva Respimat 1.25 MCG/ACT 12/29/2019 12:00:00 AM EST 2.0 {puffs} suspended Spiriva R espimat 1.25 MCG/ACT eCW1 ([facility]) Spiriva Respimat 1.25 MCG/ACT Spiriva Respimat 1.25 MCG/ACT 12/29/2019 12:00:00 AM EST 2.0 {puffs} active Spiriva Resp imat 1.25 MCG/ACT eCW1 ([facility]) Spiriva Respimat 1.25 MCG/ACT Spiriva Respimat 1.25 MCG/ACT 12/29/2019 12:00:00 AM EST 2.0 {puffs} suspended Spiriva R espimat 1.25 MCG/ACT eCW1 ([facility]) Spiriva Respimat 1.25 MCG/ACT Spiriva Respimat 1.25 MCG/ACT 12/29/2019 12:00:00 AM EST 2.0 {puffs} active Spiriva Resp imat 1.25 MCG/ACT eCW1 ([facility]) Spiriva Respimat 1.25 MCG/ACT Spiriva Respimat 1.25 MCG/ACT 12/29/2019 12:00:00 AM EST 2.0 {puffs} active Spiriva Resp imat 1.25 MCG/ACT eCW1 ([facility]) 20 mg 12/29/2019 12:00:00 AM EST tablet 90 TAKE ONE TABLET BY MOUTH THREE TIMES A DAY TAKE ONE TABLET BY MOUTH THREE TIMES A DAY SOLD: 12/30/2019 [facility] Spiriva Respimat 1.25 MCG/ACT Spiriva Respimat 1.25 MCG/ACT 12/29/2019 12:00:00 AM EST 2.0 {puffs} active Spiriva Resp imat 1.25 MCG/ACT eCW1 ([facility]) Spiriva Respimat 1.25 MCG/ACT Spiriva Respimat 1.25 MCG/ACT 12/29/2019 12:00:00 AM EST 2.0 {puffs} active Spiriva Resp imat 1.25 MCG/ACT eCW1 ([facility]) Spiriva Respimat 1.25 MCG/ACT Spiriva Respimat 1.25 MCG/ACT 12/29/2019 12:00:00 AM EST 2.0 {puffs} suspended Spiriva R espimat 1.25 MCG/ACT eCW1 ([facility]) Spiriva Respimat 1.25 MCG/ACT Spiriva Respimat 1.25 MCG/ACT 12/29/2019 12:00:00 AM EST 2.0 {puffs} active Spiriva Resp imat 1.25 MCG/ACT eCW1 ([facility]) Spiriva Respimat 1.25 MCG/ACT Spiriva Respimat 1.25 MCG/ACT 12/29/2019 12:00:00 AM EST 2.0 {puffs} active Spiriva Resp imat 1.25 MCG/ACT eCW1 ([facility]) 2 mg 12/25/2019 12:00:00 AM EST [...] EST active Omeprazo le 40 MG eCW1 ([facility]) Acetaminophen 325 MG / Oxycodone Hydroch loride 10 MG Oral Tablet [Percocet] Percocet 10-325 MG Percocet 10-325 MG 12/22/2019 12:00:00 AM EST 1.0 {tablet_as_needed} active Percocet 10-3 25 MG eCW1 ([facility]) Acetaminophen 325 MG / Oxycodone Hydroch loride 10 MG Oral Tablet [Percocet] Percocet 10-325 MG Percocet 10-325 MG 12/22/2019 12:00:00 AM EST 1.0 {tablet_as_needed} active Percocet 10-3 25 MG eCW1 ([facility]) Sucralfate 1000 MG Oral Tablet Sucralfate 1 GM Sucralfate 1 GM 12/22/2019 12:00:00 AM EST 1.0 {tablet_on_an_empty_stomach} active Sucralfate 1 GM eCW1 ([facility]) Sucralfate 1000 MG Oral Tablet Sucralfate 1 GM Sucralfate 1 GM 12/22/2019 12:00:00 AM EST 1.0 {tablet_on_an_empty_stomach} active Sucralfate 1 GM eCW1 ([facility]) Omeprazole 40 MG Delayed Release Oral Capsule Omeprazole 40 MG 12/22/2019 12:00:00 AM EST active Omeprazo le 40 MG eCW1 ([facility]) Omeprazole 40 MG Delayed Release Oral Capsule Omeprazole 40 MG 12/22/2019 12:00:00 AM EST active Omeprazo le 40 MG eCW1 ([facility]) Sucralfate 1000 MG Oral Tablet Sucralfate 1 GM Sucralfate 1 GM 12/22/2019 12:00:00 AM EST 1.0 {tablet_on_an_empty_stomach} active Sucralfate 1 GM eCW1 ([facility]) Sucralfate 1000 MG Oral Tablet Sucralfate 1 GM Sucralfate 1 GM 12/22/2019 12:00:00 AM EST 1.0 {tablet_on_an_empty_stomach} active Sucralfate 1 GM eCW1 ([facility]) Omeprazole 40 MG Delayed Release Oral Capsule Omeprazole 40 MG 12/22/2019 12:00:00 AM EST active Omeprazo le 40 MG eCW1 ([facility]) Acetaminophen 325 MG / Oxycodone Hydroch loride 10 MG Oral Tablet [Percocet] Percocet 10-325 MG Percocet 10-325 MG 12/22/2019 12:00:00 AM EST 1.0 {tablet_as_needed} active Percocet 10-3 25 MG eCW1 ([facility]) Omeprazole 40 MG Delayed Release Oral Capsule Omeprazole 40 MG 12/22/2019 12:00:00 AM EST active Omeprazo le 40 MG eCW1 ([facility]) Sucralfate 1000 MG Oral Tablet Sucralfate 1 GM Sucralfate 1 GM 12/22/2019 12:00:00 AM EST 1.0 {tablet_on_an_empty_stomach} active Sucralfate 1 GM eCW1 ([facility]) Acetaminophen 325 MG / Oxycodone Hydroch loride 10 MG Oral Tablet [Percocet] Percocet 10-325 MG Percocet 10-325 MG 12/22/2019 12:00:00 AM EST 1.0 {tablet_as_needed} active Percocet 10-3 25 MG eCW1 ([facility]) Sucralfate 1000 MG Oral Tablet Sucralfate 1 GM Sucralfate 1 GM 12/22/2019 12:00:00 AM EST 1.0 {tablet_on_an_empty_stomach} active Sucralfate 1 GM eCW1 ([facility]) 1 gram 12/22/2019 12:00:00 AM EST tablet 90 TAKE 1 TABLET BY MOUTH ON AN EMPTY STOMACH BEFORE EACH MEAL TAKE 1 TABLET BY MOUTH ON AN EMPTY STOMA CH BEFORE EACH MEAL SOLD: 12/22/2019 [facility] Sucralfate 1000 MG Oral Tablet Sucralfate 1 GM Sucralfate 1 GM 12/22/2019 12:00:00 AM EST 1.0 {tablet_on_an_empty_stomach} active Sucralfate 1 GM eCW1 ([facility]) Sucralfate 1000 MG Oral Tablet Sucralfate 1 GM Sucralfate 1 GM 12/22/2019 12:00:00 AM EST 1.0 {tablet_on_an_empty_stomach} active Sucralfate 1 GM eCW1 ([facility]) Omeprazole 40 MG Delayed Release Oral Capsule Omeprazole 40 MG 12/22/2019 12:00:00 AM EST active Omeprazo le 40 MG eCW1 ([facility]) Sucralfate 1000 MG Oral Tablet Sucralfate 1 GM Sucralfate 1 GM 12/22/2019 12:00:00 AM EST 1.0 {tablet_on_an_empty_stomach} active Sucralfate 1 GM eCW1 ([facility]) Sucralfate 1000 MG Oral Tablet Sucralfate 1 GM Sucralfate 1 GM 12/22/2019 12:00:00 AM EST 1.0 {tablet_on_an_empty_stomach} active Sucralfate 1 GM eCW1 ([facility]) Acetaminophen 325 MG / Oxycodone Hydroch loride 10 MG Oral Tablet [Percocet] Percocet 10-325 MG Percocet 10-325 MG 12/22/2019 12:00:00 AM EST 1.0 {tablet_as_needed} active Percocet 10-3 25 MG eCW1 ([facility]) Omeprazole 40 MG Delayed Release Oral Capsule Omeprazole 40 MG 12/22/2019 12:00:00 AM EST active Omeprazo le 40 MG eCW1 ([facility]) Sucralfate 1000 MG Oral Tablet Sucralfate 1 GM Sucralfate 1 GM 12/22/2019 12:00:00 AM EST 1.0 {tablet_on_an_empty_stomach} active Sucralfate 1 GM eCW1 ([facility]) Omeprazole 40 MG Delayed Release Oral Capsule Omeprazole 40 MG 12/22/2019 12:00:00 AM EST active Omeprazo le 40 MG eCW1 ([facility]) Acetaminophen 325 MG / Oxycodone Hydroch loride 10 MG Oral Tablet [Percocet] Percocet 10-325 MG Percocet 10-325 MG 12/22/2019 12:00:00 AM EST 1.0 {tablet_as_needed} active Percocet 10-3 25 MG eCW1 ([facility]) Sucralfate 1000 MG Oral Tablet Sucralfate 1 GM Sucralfate 1 GM 12/22/2019 12:00:00 AM EST 1.0 {tablet_on_an_empty_stomach} active Sucralfate 1 GM eCW1 ([facility]) Sucralfate 1000 MG Oral Tablet Sucralfate 1 GM Sucralfate 1 GM 12/22/2019 12:00:00 AM EST 1.0 {tablet_on_an_empty_stomach} active Sucralfate 1 GM eCW1 ([facility]) Omeprazole 40 MG Delayed Release Oral Capsule Omeprazole 40 MG 12/22/2019 12:00:00 AM EST active Omeprazo le 40 MG eCW1 ([facility]) Omeprazole 40 MG Delayed Release Oral Capsule Omeprazole 40 MG 12/22/2019 12:00:00 AM EST active Omeprazo le 40 MG eCW1 ([facility]) Omeprazole 40 MG Delayed Release Oral Capsule Omeprazole 40 MG 12/22/2019 12:00:00 AM EST active Omeprazo le 40 MG eCW1 ([facility]) Sucralfate 1000 MG Oral Tablet Sucralfate 1 GM Sucralfate 1 GM 12/22/2019 12:00:00 AM EST 1.0 {tablet_on_an_empty_stomach} active Sucralfate 1 GM eCW1 ([facility]) Sucralfate 1000 MG Oral Tablet Sucralfate 1 GM Sucralfate 1 GM 12/22/2019 12:00:00 AM EST 1.0 {tablet_on_an_empty_stomach} active Sucralfate 1 GM eCW1 ([facility]) Omeprazole 40 MG Delayed Release Oral Capsule Omeprazole 40 MG 12/22/2019 12:00:00 AM EST active Omeprazo le 40 MG eCW1 ([facility]) Acetaminophen 325 MG / Oxycodone Hydroch loride 10 MG Oral Tablet [Percocet] Percocet 10-325 MG Percocet 10-325 MG 12/22/2019 12:00:00 AM EST 1.0 {tablet_as_needed} active Percocet 10-3 25 MG eCW1 ([facility]) Sucralfate 1000 MG Oral Tablet Sucralfate 1 GM Sucralfate 1 GM 12/22/2019 12:00:00 AM EST 1.0 {tablet_on_an_empty_stomach} active Sucralfate 1 GM eCW1 ([facility]) Omeprazole 40 MG Delayed Release Oral Capsule Omeprazole 40 MG 12/22/2019 12:00:00 AM EST active Omeprazo le 40 MG eCW1 ([facility]) Omeprazole 40 MG Delayed Release Oral Capsule Omeprazole 40 MG 12/22/2019 12:00:00 AM EST active Omeprazo le 40 MG eCW1 ([facility]) Acetaminophen 325 MG / Oxycodone Hydroch loride 10 MG Oral Tablet [Percocet] Percocet 10-325 MG Percocet 10-325 MG 12/22/2019 12:00:00 AM EST 1.0 {tablet_as_needed} active Percocet 10-3 25 MG eCW1 ([facility]) Sucralfate 1000 MG Oral Tablet Sucralfate 1 GM Sucralfate 1 GM 12/22/2019 12:00:00 AM EST 1.0 {tablet_on_an_empty_stomach} active Sucralfate 1 GM eCW1 ([facility]) Sucralfate 1000 MG Oral Tablet Sucralfate 1 GM Sucralfate 1 GM 12/22/2019 12:00:00 AM EST 1.0 {tablet_on_an_empty_stomach} active Sucralfate 1 GM eCW1 ([facility]) Sucralfate 1000 MG Oral Tablet Sucralfate 1 GM Sucralfate 1 GM 12/22/2019 12:00:00 AM EST 1.0 {tablet_on_an_empty_stomach} active Sucralfate 1 GM eCW1 ([facility]) Omeprazole 40 MG Delayed Release Oral Capsule Omeprazole 40 MG 12/22/2019 12:00:00 AM EST active Omeprazo le 40 MG eCW1 ([facility]) Omeprazole 40 MG Delayed Release Oral Capsule Omeprazole 40 MG 12/22/2019 12:00:00 AM EST active Omeprazo le 40 MG eCW1 ([facility]) Omeprazole 40 MG Delayed Release Oral Capsule Omeprazole 40 MG 12/22/2019 12:00:00 AM EST active Omeprazo le 40 MG eCW1 ([facility]) Sucralfate 1000 MG Oral Tablet Sucralfate 1 GM Sucralfate 1 GM 12/22/2019 12:00:00 AM EST 1.0 {tablet_on_an_empty_stomach} active Sucralfate 1 GM eCW1 ([facility]) Omeprazole 40 MG Delayed Release Oral Capsule Omeprazole 40 MG 12/22/2019 12:00:00 AM EST active Omeprazo le 40 MG eCW1 ([facility]) Sucralfate 1000 MG Oral Tablet Sucralfate 1 GM Sucralfate 1 GM 12/22/2019 12:00:00 AM EST 1.0 {tablet_on_an_empty_stomach} active Sucralfate 1 GM eCW1 ([facility]) Omeprazole 40 MG Delayed Release Oral Capsule Omeprazole 40 MG 12/22/2019 12:00:00 AM EST active Omeprazo le 40 MG eCW1 ([facility]) Omeprazole 40 MG Delayed Release Oral Capsule Omeprazole 40 MG 12/22/2019 12:00:00 AM EST active Omeprazo le 40 MG eCW1 ([facility]) Acetaminophen 325 MG / Oxycodone Hydroch loride 10 MG Oral Tablet [Percocet] Percocet 10-325 MG Percocet 10-325 MG 12/22/2019 12:00:00 AM EST 1.0 {tablet_as_needed} active Percocet 10-3 25 MG eCW1 ([facility]) Sucralfate 1000 MG Oral Tablet Sucralfate 1 GM Sucralfate 1 GM 12/22/2019 12:00:00 AM EST 1.0 {tablet_on_an_empty_stomach} active Sucralfate 1 GM eCW1 ([facility]) Omeprazole 40 MG Delayed Release Oral Capsule Omeprazole 40 MG 12/22/2019 12:00:00 AM EST active Omeprazo le 40 MG eCW1 ([facility]) Sucralfate 1000 MG Oral Tablet Sucralfate 1 GM Sucralfate 1 GM 12/22/2019 12:00:00 AM EST 1.0 {tablet_on_an_empty_stomach} active Sucralfate 1 GM eCW1 ([facility]) Omeprazole 40 MG Delayed Release Oral Capsule Omeprazole 40 MG 12/22/2019 12:00:00 AM EST active Omeprazo le 40 MG eCW1 ([facility]) Omeprazole 40 MG Delayed Release Oral Capsule Omeprazole 40 MG 12/22/2019 12:00:00 AM EST active Omeprazo le 40 MG eCW1 ([facility]) Acetaminophen 325 MG / Oxycodone Hydroch loride 10 MG Oral Tablet [Percocet] Percocet 10-325 MG Percocet 10-325 MG 12/22/2019 12:00:00 AM EST 1.0 {tablet_as_needed} active Percocet 10-3 25 MG eCW1 ([facility]) Sucralfate 1000 MG Oral Tablet Sucralfate 1 GM Sucralfate 1 GM 12/22/2019 12:00:00 AM EST 1.0 {tablet_on_an_empty_stomach} active Sucralfate 1 GM eCW1 ([facility]) Sucralfate 1000 MG Oral Tablet Sucralfate 1 GM Sucralfate 1 GM 12/22/2019 12:00:00 AM EST 1.0 {tablet_on_an_empty_stomach} active Sucralfate 1 GM W1 ([facility]) Sucralfate 1000 MG Oral Tablet Sucralfate 1 GM Sucralfate 1 GM 12/22/2019 12:00:00 AM EST 1.0 {tablet_on_an_empty_stomach} active Sucralfate 1 GM eCW1 ([facility]) Sucralfate 1000 MG Oral Tablet Sucralfate 1 GM Sucralfate 1 GM 12/22/2019 12:00:00 AM EST 1.0 {tablet_on_an_empty_stomach} active Sucralfate 1 GM W1 ([facility]) Acetaminophen 325 MG / Oxycodone Hydroch loride 10 MG Oral Tablet [Percocet] Percocet 10-325 MG Percocet 10-325 MG 12/22/2019 12:00:00 AM EST 1.0 {tablet_as_needed} active Percocet 10-3 25 MG [facility] ([facility]) Omeprazole 40 MG Delayed Release Oral Capsule Omeprazole 40 MG 12/22/2019 12:00:00 AM EST active Omeprazo le 40 MG [facility] ([facility]) Omeprazole 40 MG Delayed Release Oral Capsule Omeprazole 40 MG 12/22/2019 12:00:00 AM EST active Omeprazo le 40 MG [facility] ([facility]) Sucralfate 1000 MG Oral Tablet Sucralfate 1 GM Sucralfate 1 GM 12/22/2019 12:00:00 AM EST 1.0 {tablet_on_an_empty_stomach} active Sucralfate 1 GM W1 ([facility]) Sucralfate 1000 MG Oral Tablet Sucralfate 1 GM Sucralfate 1 GM 12/22/2019 12:00:00 AM EST 1.0 {tablet_on_an_empty_stomach} active Sucralfate 1 GM eCW1 ([facility]) Sucralfate 1000 MG Oral Tablet Sucralfate 1 GM Sucralfate 1 GM 12/22/2019 12:00:00 AM EST 1.0 {tablet_on_an_empty_stomach} active Sucralfate 1 GM eCW1 ([facility]) Sucralfate 1000 MG Oral Tablet Sucralfate 1 GM Sucralfate 1 GM 12/22/2019 12:00:00 AM EST 1.0 {tablet_on_an_empty_stomach} active Sucralfate 1 GM eCW1 ([facility]) Omeprazole 40 MG Delayed Release Oral Capsule Omeprazole 40 MG 12/22/2019 12:00:00 AM EST active Omeprazo le 40 MG eCW1 ([facility]) Sucralfate 1000 MG Oral Tablet Sucralfate 1 GM Sucralfate 1 GM 12/22/2019 12:00:00 AM EST 1.0 {tablet_on_an_empty_stomach} active Sucralfate 1 GM eCW1 ([facility]) Acetaminophen 325 MG / Oxycodone Hydroch loride 10 MG Oral Tablet [Percocet] Percocet 10-325 MG Percocet 10-325 MG 12/22/2019 12:00:00 AM EST 1.0 {tablet_as_needed} active Percocet 10-3 25 MG eCW1 ([facility]) Acetaminophen 325 MG / Oxycodone Hydroch loride 10 MG Oral Tablet [Percocet] Percocet 10-325 MG Percocet 10-325 MG 12/22/2019 12:00:00 AM EST 1.0 {tablet_as_needed} active Percocet 10-3 25 MG eCW1 ([facility]) Acetaminophen 325 MG / Oxycodone Hydroch loride 10 MG Oral Tablet [Percocet] Percocet 10-325 MG Percocet 10-325 MG 12/22/2019 12:00:00 AM EST 1.0 {tablet_as_needed} active Percocet 10-3 25 MG eCW1 ([facility]) Acetaminophen 325 MG / Oxycodone Hydroch loride 10 MG Oral Tablet [Percocet] Percocet 10-325 MG Percocet 10-325 MG 12/22/2019 12:00:00 AM EST 1.0 {tablet_as_needed} active Percocet 10-3 25 MG eCW1 ([facility]) Omeprazole 40 MG Delayed Release Oral Capsule Omeprazole 40 MG 12/22/2019 12:00:00 AM EST active Omeprazo le 40 MG eCW1 ([facility]) Sucralfate 1000 MG Oral Tablet Sucralfate 1 GM Sucralfate 1 GM 12/22/2019 12:00:00 AM EST 1.0 {tablet_on_an_empty_stomach} active Sucralfate 1 GM eCW1 ([facility]) Omeprazole 40 MG Delayed Release Oral Capsule Omeprazole 40 MG 12/22/2019 12:00:00 AM EST active Omeprazo le 40 MG eCW1 ([facility]) Sucralfate 1000 MG Oral Tablet Sucralfate 1 GM Sucralfate 1 GM 12/22/2019 12:00:00 AM EST 1.0 {tablet_on_an_empty_stomach} active Sucralfate 1 GM eCW1 ([facility]) Sucralfate 1000 MG Oral Tablet Sucralfate 1 GM Sucralfate 1 GM 12/22/2019 12:00:00 AM EST 1.0 {tablet_on_an_empty_stomach} active Sucralfate 1 GM eCW1 ([facility]) Acetaminophen 325 MG / Oxycodone Hydroch loride 10 MG Oral Tablet [Percocet] Percocet 10-325 MG Percocet 10-325 MG 12/22/2019 12:00:00 AM EST 1.0 {tablet_as_needed} active Percocet 10-3 25 MG eCW1 ([facility]) Acetaminophen 325 MG / Oxycodone Hydroch loride 10 MG Oral Tablet [Percocet] Percocet 10-325 MG Percocet 10-325 MG 12/22/2019 12:00:00 AM EST 1.0 {tablet_as_needed} active Percocet 10-3 25 MG eCW1 ([facility]) Sucralfate 1000 MG Oral Tablet Sucralfate 1 GM Sucralfate 1 GM 12/22/2019 12:00:00 AM EST 1.0 {tablet_on_an_empty_stomach} active Sucralfate 1 GM eCW1 ([facility]) Sucralfate 1000 MG Oral Tablet Sucralfate 1 GM Sucralfate 1 GM 12/22/2019 12:00:00 AM EST 1.0 {tablet_on_an_empty_stomach} active Sucralfate 1 GM eCW1 ([facility]) Omeprazole 40 MG Delayed Release Oral Capsule Omeprazole 40 MG 12/22/2019 12:00:00 AM EST active Omeprazo le 40 MG eCW1 ([facility]) Omeprazole 40 MG Delayed Release Oral Capsule Omeprazole 40 MG 12/22/2019 12:00:00 AM EST active Omeprazo le 40 MG eCW1 ([facility]) Acetaminophen 325 MG / Oxycodone Hydroch loride 10 MG Oral Tablet [Percocet] Percocet 10-325 MG Percocet 10-325 MG 12/22/2019 12:00:00 AM EST 1.0 {tablet_as_needed} active Percocet 10-3 25 MG eCW1 ([facility]) Acetaminophen 325 MG / Oxycodone Hydroch loride 10 MG Oral Tablet [Percocet] Percocet 10-325 MG Percocet 10-325 MG 12/22/2019 12:00:00 AM EST 1.0 {tablet_as_needed} active Percocet 10-3 25 MG eCW1 ([facility]) Omeprazole 40 MG Delayed Release Oral Capsule Omeprazole 40 MG 12/22/2019 12:00:00 AM EST active Omeprazo le 40 MG eCW1 ([facility]) 40 mg 12/22/2019 12:00:00 AM EST capsule,delayed release (DR/EC) 30 TAKE 1 CAPSULE BY MOUTH 30 MINS. BEFORE MORNING MEAL TAKE 1 CAPSULE BY MOUTH 30 MINS. BEFORE MORNING MEAL SOLD: 12/22/2019 [facility] Omeprazole 40 MG Delayed Release Oral Capsule Omeprazole 40 MG 12/22/2019 12:00:00 AM EST active Omeprazo le 40 MG eCW1 ([facility]) Sucralfate 1000 MG Oral Tablet Sucralfate 1 GM Sucralfate 1 GM 12/22/2019 12:00:00 AM EST 1.0 {tablet_on_an_empty_stomach} active Sucralfate 1 GM eCW1 ([facility]) Omeprazole 40 MG Delayed Release Oral Capsule Omeprazole 40 MG 12/22/2019 12:00:00 AM EST active Omeprazo le 40 MG eCW1 ([facility]) Acetaminophen 325 MG / Oxycodone Hydroch loride 10 MG Oral Tablet [Percocet] Percocet 10-325 MG Percocet 10-325 MG 12/22/2019 12:00:00 AM EST 1.0 {tablet_as_needed} active Percocet 10-3 25 MG eCW1 ([facility]) Sucralfate 1000 MG Oral Tablet Sucralfate 1 GM Sucralfate 1 GM 12/22/2019 12:00:00 AM EST 1.0 {tablet_on_an_empty_stomach} active Sucralfate 1 GM eCW1 ([facility]) Sucralfate 1000 MG Oral Tablet Sucralfate 1 GM Sucralfate 1 GM 12/22/2019 12:00:00 AM EST 1.0 {tablet_on_an_empty_stomach} active Sucralfate 1 GM eCW1 ([facility]) Omeprazole 40 MG Delayed Release Oral Capsule Omeprazole 40 MG 12/22/2019 12:00:00 AM EST active Omeprazo le 40 MG eCW1 ([facility]) Omeprazole 40 MG Delayed Release Oral Capsule Omeprazole 40 MG 12/22/2019 12:00:00 AM EST active Omeprazo le 40 MG eCW1 ([facility]) Omeprazole 40 MG Delayed Release Oral Capsule Omeprazole 40 MG 12/22/2019 12:00:00 AM EST active Omeprazo le 40 MG eCW1 ([facility]) Acetaminophen 325 MG / Oxycodone Hydroch loride 10 MG Oral Tablet [Percocet] Percocet 10-325 MG Percocet 10-325 MG 12/22/2019 12:00:00 AM EST 1.0 {tablet_as_needed} active Percocet 10-3 25 MG eCW1 ([facility]) Acetaminophen 325 MG / Oxycodone Hydroch loride 10 MG Oral Tablet [Percocet] Percocet 10-325 MG Percocet 10-325 MG 12/22/2019 12:00:00 AM EST 1.0 {tablet_as_needed} active Percocet 10-3 25 MG eCW1 ([facility]) Acetaminophen 325 MG / Oxycodone Hydroch loride 10 MG Oral Tablet [Percocet] Percocet 10-325 MG Percocet 10-325 MG 12/22/2019 12:00:00 AM EST 1.0 {tablet_as_needed} active Percocet 10-3 25 MG eCW1 ([facility]) Omeprazole 40 MG Delayed Release Oral Capsule Omeprazole 40 MG 12/22/2019 12:00:00 AM EST active Omeprazo le 40 MG eCW1 ([facility]) Acetaminophen 325 MG / Oxycodone Hydroch loride 10 MG Oral Tablet [Percocet] Percocet 10-325 MG Percocet 10-325 MG 12/22/2019 12:00:00 AM EST 1.0 {tablet_as_needed} active Percocet 10-3 25 MG eCW1 ([facility]) Sucralfate 1000 MG Oral Tablet Sucralfate 1 GM Sucralfate 1 GM 12/22/2019 12:00:00 AM EST 1.0 {tablet_on_an_empty_stomach} active Sucralfate 1 GM eCW1 ([facility]) Sucralfate 1000 MG Oral Tablet Sucralfate 1 GM Sucralfate 1 GM 12/22/2019 12:00:00 AM EST 1.0 {tablet_on_an_empty_stomach} active Sucralfate 1 GM eCW1 ([facility]) Omeprazole 40 MG Delayed Release Oral Capsule Omeprazole 40 MG 12/22/2019 12:00:00 AM EST active Omeprazo le 40 MG eCW1 ([facility]) Omeprazole 40 MG Delayed Release Oral Capsule Omeprazole 40 MG 12/22/2019 12:00:00 AM EST active Omeprazo le 40 MG eCW1 ([facility]) Omeprazole 40 MG Delayed Release Oral Capsule Omeprazole 40 MG 12/22/2019 12:00:00 AM EST active Omeprazo le 40 MG eCW1 ([facility]) Omeprazole 40 MG Delayed Release Oral Capsule Omeprazole 40 MG 12/22/2019 12:00:00 AM EST active Omeprazo le 40 MG eCW1 ([facility]) Acetaminophen 325 MG / Oxycodone Hydroch loride 10 MG Oral Tablet [Percocet] Percocet 10-325 MG Percocet 10-325 MG 12/22/2019 12:00:00 AM EST 1.0 {tablet_as_needed} active Percocet 10-3 25 MG eCW1 ([facility]) Acetaminophen 325 MG / Oxycodone Hydroch loride 10 MG Oral Tablet [Percocet] Percocet 10-325 MG Percocet 10-325 MG 12/22/2019 12:00:00 AM EST 1.0 {tablet_as_needed} active Percocet 10-3 25 MG eCW1 ([facility]) Sucralfate 1000 MG Oral Tablet Sucralfate 1 GM Sucralfate 1 GM 12/22/2019 12:00:00 AM EST 1.0 {tablet_on_an_empty_stomach} active Sucralfate 1 GM eCW1 ([facility]) Sucralfate 1000 MG Oral Tablet Sucralfate 1 GM Sucralfate 1 GM 12/22/2019 12:00:00 AM EST 1.0 {tablet_on_an_empty_stomach} active Sucralfate 1 GM eCW1 ([facility]) Omeprazole 40 MG Delayed Release Oral Capsule Omeprazole 40 MG 12/22/2019 12:00:00 AM EST active Omeprazo le 40 MG eCW1 ([facility]) Acetaminophen 325 MG / Oxycodone Hydroch loride 10 MG Oral Tablet [Percocet] Percocet 10-325 MG Percocet 10-325 MG 12/22/2019 12:00:00 AM EST 1.0 {tablet_as_needed} active Percocet 10-3 25 MG eCW1 ([facility]) Acetaminophen 325 MG / Oxycodone Hydroch loride 10 MG Oral Tablet [Percocet] Percocet 10-325 MG Percocet 10-325 MG 12/22/2019 12:00:00 AM EST 1.0 {tablet_as_needed} active Percocet 10-3 25 MG eCW1 ([facility]) Sucralfate 1000 MG Oral Tablet Sucralfate 1 GM Sucralfate 1 GM 12/22/2019 12:00:00 AM EST 1.0 {tablet_on_an_empty_stomach} active Sucralfate 1 GM eCW1 ([facility]) Omeprazole 40 MG Delayed Release Oral Capsule Omeprazole 40 MG 12/22/2019 12:00:00 AM EST active Omeprazo le 40 MG eCW1 ([facility]) Sucralfate 1000 MG Oral Tablet Sucralfate 1 GM Sucralfate 1 12/22/2019 12:00:00 AM EST 1.0 {tablet_on_an_empty_stomach} active Sucralfate 1 GM eCW1 ([facility]) Sucralfate 1000 MG Oral Tablet Sucralfate 1 GM Sucralfate 1 12/22/2019 12:00:00 AM EST 1.0 {tablet_on_an_empty_stomach} active Sucralfate 1 GM eCW1 ([facility]) Omeprazole 40 MG Delayed Release Oral Capsule Omeprazole 40 MG 12/22/2019 12:00:00 AM EST active Omeprazo le 40 MG eCW1 ([facility]) Omeprazole 40 MG Delayed Release Oral Capsule Omeprazole 40 MG 12/22/2019 12:00:00 AM EST active Omeprazo le 40 MG eCW1 ([facility]) Sucralfate 1000 MG Oral Tablet Sucralfate 1 GM Sucralfate 1 12/22/2019 12:00:00 AM EST 1.0 {tablet_on_an_empty_stomach} active Sucralfate 1 GM eCW1 ([facility]) Sucralfate 1000 MG Oral Tablet Sucralfate 1 GM Sucralfate 1 GM 12/22/2019 12:00:00 AM EST 1.0 {tablet_on_an_empty_stomach} active Sucralfate 1 GM eCW1 ([facility]) Omeprazole 40 MG Delayed Release Oral Capsule Omeprazole 40 MG 12/22/2019 12:00:00 AM EST active Omeprazo le 40 MG eCW1 ([facility]) Acetaminophen 325 MG / Oxycodone Hydroch loride 10 MG Oral Tablet [Percocet] Percocet 10-325 MG Percocet 10-325 MG 12/22/2019 12:00:00 AM EST 1.0 {tablet_as_needed} active Percocet 10-3 25 MG eCW1 ([facility]) Omeprazole 40 MG Delayed Release Oral Capsule Omeprazole 40 MG 12/22/2019 12:00:00 AM EST active Omeprazo le 40 MG eCW1 ([facility]) Omeprazole 40 MG Delayed Release Oral Capsule Omeprazole 40 MG 12/22/2019 12:00:00 AM EST active Omeprazo le 40 MG eCW1 ([facility]) Acetaminophen 325 MG / Oxycodone Hydroch loride 10 MG Oral Tablet [Percocet] Percocet 10-325 MG Percocet 10-325 MG 12/22/2019 12:00:00 AM EST 1.0 {tablet_as_needed} active Percocet 10-3 25 MG eCW1 ([facility]) Omeprazole 40 MG Delayed Release Oral Capsule Omeprazole 40 MG 12/22/2019 12:00:00 AM EST active Omeprazo le 40 MG eCW1 ([facility]) Omeprazole 40 MG Delayed Release Oral Capsule Omeprazole 40 MG 12/22/2019 12:00:00 AM EST active Omeprazo le 40 MG eCW1 ([facility]) Acetaminophen 325 MG / Oxycodone Hydroch loride 10 MG Oral Tablet [Percocet] Percocet 10-325 MG Percocet 10-325 MG 12/22/2019 12:00:00 AM EST 1.0 {tablet_as_needed} active Percocet 10-3 25 MG eCW1 ([facility]) Acetaminophen 325 MG / Oxycodone Hydroch loride 10 MG Oral Tablet [Percocet] Percocet 10-325 MG Percocet 10-325 MG 12/22/2019 12:00:00 AM EST 1.0 {tablet_as_needed} active Percocet 10-3 25 MG eCW1 ([facility]) Sucralfate 1000 MG Oral Tablet Sucralfate 1 GM Sucralfate 1 GM 12/22/2019 12:00:00 AM EST 1.0 {tablet_on_an_empty_stomach} active Sucralfate 1 GM eCW1 ([facility]) Omeprazole 40 MG Delayed Release Oral Capsule Omeprazole 40 MG 12/22/2019 12:00:00 AM EST active Omeprazo le 40 MG eCW1 ([facility]) 10-325 mg 12/22/2019 12:00:00 AM EST tablet 90 TAKE ONE TABLET BY MOUTH EVERY 6 HOURS MAXIMUM DAILY DOSE = 4 TABLETS TAKE ONE TABLET BY MOUTH EVERY 6 HOURS MAXIMUM DAILY DOSE = 4 TABLETS SOLD: 12/22/2019 [facility] Omeprazole 40 MG Delayed Release Oral Capsule Omeprazole 40 MG 12/22/2019 12:00:00 AM EST active Omeprazo le 40 MG eCW1 ([facility]) Acetaminophen 325 MG / Oxycodone Hydroch loride 10 MG Oral Tablet [Percocet] Percocet 10-325 MG Percocet 10-325 MG 12/22/2019 12:00:00 AM EST 1.0 {tablet_as_needed} active Percocet 10-3 25 MG eCW1 ([facility]) Omeprazole 40 MG Delayed Release Oral Capsule Omeprazole 40 MG 12/22/2019 12:00:00 AM EST active Omeprazo le 40 MG eCW1 ([facility]) Acetaminophen 325 MG / Oxycodone Hydroch loride 10 MG Oral Tablet [Percocet] Percocet 10-325 MG Percocet 10-325 MG 12/22/2019 12:00:00 AM EST 1.0 {tablet_as_needed} active Percocet 10-3 25 MG eCW1 ([facility]) Sucralfate 1000 MG Oral Tablet Sucralfate 1 GM Sucralfate 1 GM 12/22/2019 12:00:00 AM EST 1.0 {tablet_on_an_empty_stomach} active Sucralfate 1 GM eCW1 ([facility]) Acetaminophen 325 MG / Oxycodone Hydroch loride 10 MG Oral Tablet [Percocet] Percocet 10-325 MG Percocet 10-325 MG 12/22/2019 12:00:00 AM EST 1.0 {tablet_as_needed} active Percocet 10-3 25 MG eCW1 ([facility]) Omeprazole 40 MG Delayed Release Oral Capsule Omeprazole 40 MG 12/22/2019 12:00:00 AM EST active Omeprazo le 40 MG eCW1 ([facility]) Sucralfate 1000 MG Oral Tablet Sucralfate 1 GM Sucralfate 1 GM 12/22/2019 12:00:00 AM EST 1.0 {tablet_on_an_empty_stomach} active Sucralfate 1 GM eCW1 ([facility]) Sucralfate 1000 MG Oral Tablet Sucralfate 1 GM Sucralfate 1 GM 12/22/2019 12:00:00 AM EST 1.0 {tablet_on_an_empty_stomach} active Sucralfate 1 GM eCW1 ([facility]) Sucralfate 1000 MG Oral Tablet Sucralfate 1 GM Sucralfate 1 GM 12/22/2019 12:00:00 AM EST 1.0 {tablet_on_an_empty_stomach} active Sucralfate 1 GM eCW1 ([facility]) Amlodipine 5 MG / valsartan 160 [...] {tablet_as_needed} active Percocet 10-3 25 MG eCW1 ([facility]) Acetaminophen 325 MG / Oxycodone Hydroch loride 10 MG Oral Tablet [Percocet] Percocet 10-325 MG Percocet 10-325 MG 11/24/2019 12:00:00 AM EDT 1.0 {tablet_as_needed} active Percocet 10-3 25 MG eCW1 ([facility]) Acetaminophen 325 MG / Oxycodone Hydroch loride 10 MG Oral Tablet [Percocet] Percocet 10-325 MG Percocet 10-325 MG 11/24/2019 12:00:00 AM EDT 1.0 {tablet_as_needed} active Percocet 10-3 25 MG eCW1 ([facility]) Acetaminophen 325 MG / Oxycodone Hydroch loride 10 MG Oral Tablet [Percocet] Percocet 10-325 MG Percocet 10-325 MG 11/24/2019 12:00:00 AM EDT 1.0 {tablet_as_needed} active Percocet 10-3 25 MG eCW1 ([facility]) Acetaminophen 325 MG / Oxycodone Hydroch loride 10 MG Oral Tablet [Percocet] Percocet 10-325 MG Percocet 10-325 MG 11/24/2019 12:00:00 AM EDT 1.0 {tablet_as_needed} active Percocet 10-3 25 MG eCW1 ([facility]) Acetaminophen 325 MG / Oxycodone Hydroch loride 10 MG Oral Tablet [Percocet] Percocet 10-325 MG Percocet 10-325 MG 11/24/2019 12:00:00 AM EDT 1.0 {tablet_as_needed} active Percocet 10-3 25 MG eCW1 ([facility]) Acetaminophen 325 MG / Oxycodone Hydroch loride 10 MG Oral Tablet [Percocet] Percocet 10-325 MG Percocet 10-325 MG 11/24/2019 12:00:00 AM EDT 1.0 {tablet_as_needed} active Percocet 10-3 25 MG eCW1 ([facility]) Acetaminophen 325 MG / Oxycodone Hydroch loride 10 MG Oral Tablet [Percocet] Percocet 10-325 MG Percocet 10-325 MG 11/24/2019 12:00:00 AM EDT 1.0 {tablet_as_needed} active Percocet 10-3 25 MG eCW1 ([facility]) Acetaminophen 325 MG / Oxycodone Hydroch loride 10 MG Oral Tablet [Percocet] Percocet 10-325 MG Percocet 10-325 MG 11/24/2019 12:00:00 AM EDT 1.0 {tablet_as_needed} active Percocet 10-3 25 MG eCW1 ([facility]) 10-325 mg 11/24/2019 12:00:00 AM EDT [...] {tablet_as_needed} active Percocet 10-3 25 MG eCW1 ([facility]) Acetaminophen 325 MG / Oxycodone Hydroch loride 10 MG Oral Tablet [Percocet] Percocet 10-325 MG Percocet 10-325 MG 11/24/2019 12:00:00 AM EDT 1.0 {tablet_as_needed} active Percocet 10-3 25 MG eCW1 ([facility]) Acetaminophen 325 MG / Oxycodone Hydroch loride 10 MG Oral Tablet [Percocet] Percocet 10-325 MG Percocet 10-325 MG 11/24/2019 12:00:00 AM EDT 1.0 {tablet_as_needed} active Percocet 10-3 25 MG eCW1 ([facility]) Acetaminophen 325 MG / Oxycodone Hydroch loride 10 MG Oral Tablet [Percocet] Percocet 10-325 MG Percocet 10-325 MG 11/24/2019 12:00:00 AM EDT 1.0 {tablet_as_needed} active Percocet 10-3 25 MG eCW1 ([facility]) Acetaminophen 325 MG / Oxycodone Hydroch loride 10 MG Oral Tablet [Percocet] Percocet 10-325 MG Percocet 10-325 MG 11/24/2019 12:00:00 AM EDT 1.0 {tablet_as_needed} active Percocet 10-3 25 MG eCW1 ([facility]) Acetaminophen 325 MG / Oxycodone Hydroch loride 10 MG Oral Tablet [Percocet] Percocet 10-325 MG Percocet 10-325 MG 11/24/2019 12:00:00 AM EDT 1.0 {tablet_as_needed} active Percocet 10-3 25 MG eCW1 ([facility]) Acetaminophen 325 MG / Oxycodone Hydroch loride 10 MG Oral Tablet [Percocet] Percocet 10-325 MG Percocet 10-325 MG 11/24/2019 12:00:00 AM EDT 1.0 {tablet_as_needed} active Percocet 10-3 25 MG eCW1 ([facility]) Acetaminophen 325 MG / Oxycodone Hydroch loride 10 MG Oral Tablet [Percocet] Percocet 10-325 MG Percocet 10-325 MG 11/24/2019 12:00:00 AM EDT 1.0 {tablet_as_needed} active Percocet 10-3 25 MG eCW1 ([facility]) Acetaminophen 325 MG / Oxycodone Hydroch loride 10 MG Oral Tablet [Percocet] Percocet 10-325 MG Percocet 10-325 MG 11/24/2019 12:00:00 AM EDT 1.0 {tablet_as_needed} active Percocet 10-3 25 MG eCW1 ([facility]) atorvastatin 40 MG Oral Tablet ATORVASTATIN [...] AM EDT active Diazepam 2 MG eCW1 ([facility]) Diazepam 2 MG Oral Tablet Diazepam 2 MG 11/10/2019 12:00:00 AM EDT 1.0 {tablet_as_needed} active Diazepam 2 MG eCW1 ([facility]) Diazepam 2 MG Oral Tablet Diazepam 2 MG 11/10/2019 12:00:00 AM EDT 1.0 {tablet_as_needed} active Diazepam 2 MG eCW1 ([facility]) Diazepam 2 MG Oral Tablet Diazepam 2 MG 11/10/2019 12:00:00 AM EDT active Diazepam 2 MG eCW1 ([facility]) Diazepam 2 MG Oral Tablet Diazepam 2 MG 11/10/2019 12:00:00 AM EDT active Diazepam 2 MG eCW1 ([facility]) Diazepam 2 MG Oral Tablet Diazepam 2 MG 11/10/2019 12:00:00 AM EDT active Diazepam 2 MG eCW1 ([facility]) Diazepam 2 MG Oral Tablet Diazepam 2 MG 11/10/2019 12:00:00 AM EDT active Diazepam 2 MG eCW1 ([facility]) Diazepam 2 MG Oral Tablet Diazepam 2 MG 11/10/2019 12:00:00 AM EDT active Diazepam 2 MG eCW1 ([facility]) Diazepam 2 MG Oral Tablet Diazepam 2 MG 11/10/2019 12:00:00 AM EDT active Diazepam 2 MG eCW1 ([facility]) Diazepam 2 MG Oral Tablet Diazepam 2 MG 11/10/2019 12:00:00 AM EDT 1.0 {tablet_as_needed} active Diazepam 2 MG eCW1 ([facility]) Diazepam 2 MG Oral Tablet Diazepam 2 MG 11/10/2019 12:00:00 AM EDT 1.0 {tablet_as_needed} active Diazepam 2 MG eCW1 ([facility]) Diazepam 2 MG Oral Tablet Diazepam 2 MG 11/10/2019 12:00:00 AM EDT active Diazepam 2 MG eCW1 ([facility]) Diazepam 2 MG Oral Tablet Diazepam 2 MG 11/10/2019 12:00:00 AM EDT 1.0 {tablet_as_needed} active Diazepam 2 MG eCW1 ([facility]) Diazepam 2 MG Oral Tablet Diazepam 2 MG 11/10/2019 12:00:00 AM EDT active Diazepam 2 MG eCW1 ([facility]) Diazepam 2 MG Oral Tablet Diazepam 2 MG 11/10/2019 12:00:00 AM EDT 1.0 {tablet_as_needed} active Diazepam 2 MG eCW1 ([facility]) Diazepam 2 MG Oral Tablet Diazepam 2 MG 11/10/2019 12:00:00 AM EDT active Diazepam 2 MG eCW1 ([facility]) Diazepam 2 MG Oral Tablet Diazepam 2 MG 11/10/2019 12:00:00 AM EDT active Diazepam 2 MG eCW1 ([facility]) Diazepam 2 MG Oral Tablet Diazepam 2 MG 11/10/2019 12:00:00 AM EDT active Diazepam 2 MG eCW1 ([facility]) Diazepam 2 MG Oral Tablet Diazepam 2 MG 11/10/2019 12:00:00 AM EDT 1.0 {tablet_as_needed} active Diazepam 2 MG eCW1 ([facility]) Diazepam 2 MG Oral Tablet Diazepam 2 MG 11/10/2019 12:00:00 AM EDT 1.0 {tablet_as_needed} active Diazepam 2 MG eCW1 ([facility]) Diazepam 2 MG Oral Tablet Diazepam 2 MG 11/10/2019 12:00:00 AM EDT 1.0 {tablet_as_needed} active Diazepam 2 MG eCW1 ([facility]) Diazepam 2 MG Oral Tablet Diazepam 2 MG 11/10/2019 12:00:00 AM EDT active Diazepam 2 MG eCW1 ([facility]) Diazepam 2 MG Oral Tablet Diazepam 2 MG 11/10/2019 12:00:00 AM EDT active Diazepam 2 MG eCW1 ([facility]) Diazepam 2 MG Oral Tablet Diazepam 2 MG 11/10/2019 12:00:00 AM EDT active Diazepam 2 MG eCW1 ([facility]) Diazepam 2 MG Oral Tablet Diazepam 2 MG 11/10/2019 12:00:00 AM EDT active Diazepam 2 MG eCW1 ([facility]) Diazepam 2 MG Oral Tablet Diazepam 2 MG 11/10/2019 12:00:00 AM EDT active Diazepam 2 MG eCW1 ([facility]) Diazepam 2 MG Oral Tablet Diazepam 2 MG 11/10/2019 12:00:00 AM EDT active Diazepam 2 MG eCW1 ([facility]) Diazepam 2 MG Oral Tablet Diazepam 2 MG 11/10/2019 12:00:00 AM EDT active Diazepam 2 MG eCW1 ([facility]) Diazepam 2 MG Oral Tablet Diazepam 2 MG 11/10/2019 12:00:00 AM EDT 1.0 {tablet_as_needed} active Diazepam 2 MG eCW1 ([facility]) Diazepam 2 MG Oral Tablet Diazepam 2 MG 11/10/2019 12:00:00 AM EDT active Diazepam 2 MG eCW1 ([facility]) Diazepam 2 MG Oral Tablet Diazepam 2 MG 11/10/2019 12:00:00 AM EDT active Diazepam 2 MG eCW1 ([facility]) Diazepam 2 MG Oral Tablet Diazepam 2 MG 11/10/2019 12:00:00 AM EDT active Diazepam 2 MG eCW1 ([facility]) Diazepam 2 MG Oral Tablet Diazepam 2 MG 11/10/2019 12:00:00 AM EDT active Diazepam 2 MG eCW1 ([facility]) Diazepam 2 MG Oral Tablet Diazepam 2 MG 11/10/2019 12:00:00 AM EDT active Diazepam 2 MG eCW1 ([facility]) Diazepam 2 MG Oral Tablet Diazepam 2 MG 11/10/2019 12:00:00 AM EDT 1.0 {tablet_as_needed} active Diazepam 2 MG eCW1 ([facility]) Diazepam 2 MG Oral Tablet Diazepam 2 MG 11/10/2019 12:00:00 AM EDT 1.0 {tablet_as_needed} active Diazepam 2 MG eCW1 ([facility]) Diazepam 2 MG Oral Tablet Diazepam 2 MG 11/10/2019 12:00:00 AM EDT active Diazepam 2 MG eCW1 ([facility]) Diazepam 2 MG Oral Tablet Diazepam 2 MG 11/10/2019 12:00:00 AM EDT active Diazepam 2 MG eCW1 ([facility]) Diazepam 2 MG Oral Tablet Diazepam 2 MG 11/10/2019 12:00:00 AM EDT active Diazepam 2 MG eCW1 ([facility]) Diazepam 2 MG Oral Tablet Diazepam 2 MG 11/10/2019 12:00:00 AM EDT 1.0 {tablet_as_needed} active Diazepam 2 MG eCW1 ([facility]) Diazepam 2 MG Oral Tablet Diazepam 2 MG 11/10/2019 12:00:00 AM EDT 1.0 {tablet_as_needed} active Diazepam 2 MG eCW1 ([facility]) Diazepam 2 MG Oral Tablet Diazepam 2 MG 11/10/2019 12:00:00 AM EDT active Diazepam 2 MG eCW1 ([facility]) Diazepam 2 MG Oral Tablet Diazepam 2 MG 11/10/2019 12:00:00 AM EDT 1.0 {tablet_as_needed} active Diazepam 2 MG eCW1 ([facility]) Diazepam 2 MG Oral Tablet Diazepam 2 MG 11/10/2019 12:00:00 AM EDT 1.0 {tablet_as_needed} active Diazepam 2 MG eCW1 ([facility]) Diazepam 2 MG Oral Tablet Diazepam 2 MG 11/10/2019 12:00:00 AM EDT 1.0 {tablet_as_needed} active Diazepam 2 MG eCW1 ([facility]) Diazepam 2 MG Oral Tablet Diazepam 2 MG 11/10/2019 12:00:00 AM EDT 1.0 {tablet_as_needed} active Diazepam 2 MG eCW1 ([facility]) Diazepam 2 MG Oral Tablet Diazepam 2 MG 11/10/2019 12:00:00 AM EDT active Diazepam 2 MG eCW1 ([facility]) Diazepam 2 MG Oral Tablet Diazepam 2 MG 11/10/2019 12:00:00 AM EDT active Diazepam 2 MG eCW1 ([facility]) Diazepam 2 MG Oral Tablet Diazepam 2 MG 11/10/2019 12:00:00 AM EDT 1.0 {tablet_as_needed} active Diazepam 2 MG eCW1 ([facility]) Diazepam 2 MG Oral Tablet Diazepam 2 MG 11/10/2019 12:00:00 AM EDT 1.0 {tablet_as_needed} active Diazepam 2 MG eCW1 ([facility]) Diazepam 2 MG Oral Tablet Diazepam 2 MG 11/10/2019 12:00:00 AM EDT active Diazepam 2 MG eCW1 ([facility]) Diazepam 2 MG Oral Tablet Diazepam 2 MG 11/10/2019 12:00:00 AM EDT 1.0 {tablet_as_needed} active Diazepam 2 MG eCW1 ([facility]) Diazepam 2 MG Oral Tablet Diazepam 2 MG 11/10/2019 12:00:00 AM EDT active Diazepam 2 MG eCW1 ([facility]) Diazepam 2 MG Oral Tablet Diazepam 2 MG 11/10/2019 12:00:00 AM EDT active Diazepam 2 MG eCW1 ([facility]) Diazepam 2 MG Oral Tablet Diazepam 2 MG 11/10/2019 12:00:00 AM EDT active Diazepam 2 MG eCW1 ([facility]) Diazepam 2 MG Oral Tablet Diazepam 2 MG 11/10/2019 12:00:00 AM EDT active Diazepam 2 MG eCW1 ([facility]) Diazepam 2 MG Oral Tablet Diazepam 2 MG 11/10/2019 12:00:00 AM EDT active Diazepam 2 MG eCW1 ([facility]) Diazepam 2 MG Oral Tablet Diazepam 2 MG 11/10/2019 12:00:00 AM EDT active Diazepam 2 MG eCW1 ([facility]) Diazepam 2 MG Oral Tablet Diazepam 2 MG 11/10/2019 12:00:00 AM EDT 1.0 {tablet_as_needed} active Diazepam 2 MG eCW1 ([facility]) Diazepam 2 MG Oral Tablet Diazepam 2 MG 11/10/2019 12:00:00 AM EDT active Diazepam 2 MG eCW1 ([facility]) Diazepam 2 MG Oral Tablet Diazepam 2 MG 11/10/2019 12:00:00 AM EDT active Diazepam 2 MG eCW1 ([facility]) Diazepam 2 MG Oral Tablet Diazepam 2 MG 11/10/2019 12:00:00 AM EDT 1.0 {tablet_as_needed} active Diazepam 2 MG eCW1 ([facility]) Diazepam 2 MG Oral Tablet Diazepam 2 MG 11/10/2019 12:00:00 AM EDT active Diazepam 2 MG eCW1 ([facility]) Diazepam 2 MG Oral Tablet Diazepam 2 MG 11/10/2019 12:00:00 AM EDT 1.0 {tablet_as_needed} active Diazepam 2 MG eCW1 ([facility]) Diazepam 2 MG Oral Tablet Diazepam 2 MG 11/10/2019 12:00:00 AM EDT 1.0 {tablet_as_needed} active Diazepam 2 MG eCW1 ([facility]) Diazepam 2 MG Oral Tablet Diazepam 2 MG 11/10/2019 12:00:00 AM EDT 1.0 {tablet_as_needed} active Diazepam 2 MG eCW1 ([facility]) Diazepam 2 MG Oral Tablet Diazepam 2 MG 11/10/2019 12:00:00 AM EDT 1.0 {tablet_as_needed} active Diazepam 2 MG eCW1 ([facility]) Diazepam 2 MG Oral Tablet Diazepam 2 MG 11/10/2019 12:00:00 AM EDT active Diazepam 2 MG eCW1 ([facility]) Diazepam 2 MG Oral Tablet Diazepam 2 MG 11/10/2019 12:00:00 AM EDT 1.0 {tablet_as_needed} active Diazepam 2 MG eCW1 ([facility]) Diazepam 2 MG Oral Tablet Diazepam 2 MG 11/10/2019 12:00:00 AM EDT active Diazepam 2 MG eCW1 ([facility]) Diazepam 2 MG Oral Tablet Diazepam 2 MG 11/10/2019 12:00:00 AM EDT 1.0 {tablet_as_needed} active Diazepam 2 MG eCW1 ([facility]) Diazepam 2 MG Oral Tablet Diazepam 2 MG 11/10/2019 12:00:00 AM EDT active Diazepam 2 MG eCW1 ([facility]) Diazepam 2 MG Oral Tablet Diazepam 2 MG 11/10/2019 12:00:00 AM EDT active Diazepam 2 MG eCW1 ([facility]) Diazepam 2 MG Oral Tablet Diazepam 2 MG 11/10/2019 12:00:00 AM EDT active Diazepam 2 MG eCW1 ([facility]) Diazepam 2 MG Oral Tablet Diazepam 2 MG 11/10/2019 12:00:00 AM EDT active Diazepam 2 MG eCW1 ([facility]) Diazepam 2 MG Oral Tablet Diazepam 2 MG 11/10/2019 12:00:00 AM EDT active Diazepam 2 MG eCW1 ([facility]) Diazepam 2 MG Oral Tablet Diazepam 2 MG 11/10/2019 12:00:00 AM EDT active Diazepam 2 MG eCW1 ([facility]) Diazepam 2 MG Oral Tablet Diazepam 2 MG 11/10/2019 12:00:00 AM EDT active Diazepam 2 MG eCW1 ([facility]) Diazepam 2 MG Oral Tablet Diazepam 2 MG 11/10/2019 12:00:00 AM EDT active Diazepam 2 MG eCW1 ([facility]) Diazepam 2 MG Oral Tablet Diazepam 2 MG 11/10/2019 12:00:00 AM EDT active Diazepam 2 MG eCW1 ([facility]) 15 mg 11/04/2019 12:00:00 AM EDT [...] 12:00:00 AM EDT active [facility] ([facility], ) 250 mg 09/22/2019 12:00:00 AM EDT tablet 30 TAKE 1/2 TABLET BY MOUTH TWO TIMES A DAY TAKE 1/2 TABLET BY MOUTH TWO TIMES A DAY SOLD: 09/24/2019 [employer] [facility] 10-325 mg 09/14/2019 12:00:00 AM EDT tablet 120 TAKE ONE TABLET BY MOUTH EVERY 6 HOURS NEEDED FOR PAIN MAXIMUM DAILY DOSE = 4 TAKE ONE TABLET BY MOUTH EVERY 6 HOURS NEEDED FOR PAIN MAXIMUM DAILY DOSE = 4 SOLD: 09/14/2019 [employer] [facility] 28 ACTUAT tiotropium 0.0025 MG/ACTUAT Me tered Dose Inhaler [Spiriva] Spiriva Respimat 2.5 MCG/ACT Spiriva Respimat 2.5 MCG/ACT 09/04/2019 12:00:00 AM EDT 2.0 {puffs} suspended Spiriva Respimat 2 .5 MCG/ACT eCW1 ([facility]) 28 ACTUAT tiotropium 0.0025 MG/ACTUAT Me tered Dose Inhaler [Spiriva] Spiriva Respimat 2.5 MCG/ACT Spiriva Respimat 2.5 MCG/ACT 09/04/2019 12:00:00 AM EDT 2.0 {puffs} suspended Spiriva Respimat 2 .5 MCG/ACT eCW1 ([facility]) 28 ACTUAT tiotropium 0.0025 MG/ACTUAT Me tered Dose Inhaler [Spiriva] Spiriva Respimat 2.5 MCG/ACT Spiriva Respimat 2.5 MCG/ACT 09/04/2019 12:00:00 AM EDT 2.0 {puffs} active Spiriva Respimat 2.5 MCG/ACT eCW1 ([facility]) 28 ACTUAT tiotropium 0.0025 MG/ACTUAT Me tered Dose Inhaler [Spiriva] Spiriva Respimat 2.5 MCG/ACT Spiriva Respimat 2.5 MCG/ACT 09/04/2019 12:00:00 AM EDT 2.0 {puffs} suspended Spiriva Respimat 2 .5 MCG/ACT eCW1 ([facility]) 15 mg 09/04/2019 12:00:00 AM EDT tablet extended release 90 TAKE ONE TABLET BY MOUTH EVERY MORNING AND TWO TABLETS AT BEDTIME MAXIMUM DAILY DOSE = THREE TABLETS TAKE ONE TABLET BY MOUTH EVERY MORNING A ND TWO TABLETS AT BEDTIME MAXIMUM DAILY DOSE = THREE TABLETS SOLD: 09/04/2019 [employer] 28 ACTUAT tiotropium 0.0025 MG/ACTUAT Me tered Dose Inhaler [Spiriva] Spiriva Respimat 2.5 MCG/ACT Spiriva Respimat 2.5 MCG/ACT 09/04/2019 12:00:00 AM EDT 2.0 {puffs} active Spiriva Respimat 2.5 MCG/ACT eCW1 ([facility]) 28 ACTUAT tiotropium 0.0025 MG/ACTUAT Me tered Dose Inhaler [Spiriva] Spiriva Respimat 2.5 MCG/ACT Spiriva Respimat 2.5 MCG/ACT 09/04/2019 12:00:00 AM EDT 2.0 {puffs} active Spiriva Respimat 2.5 MCG/ACT eCW1 ([facility]) 28 ACTUAT tiotropium 0.0025 MG/ACTUAT Me tered Dose Inhaler [Spiriva] Spiriva Respimat 2.5 MCG/ACT Spiriva Respimat 2.5 MCG/ACT 09/04/2019 12:00:00 AM EDT 2.0 {puffs} suspended Spiriva Respimat 2 .5 MCG/ACT eCW1 ([facility]) 28 ACTUAT tiotropium 0.0025 MG/ACTUAT Me tered Dose Inhaler [Spiriva] Spiriva Respimat 2.5 MCG/ACT Spiriva Respimat 2.5 MCG/ACT 09/04/2019 12:00:00 AM EDT 2.0 {puffs} active Spiriva Respimat 2.5 MCG/ACT eCW1 ([facility]) 28 ACTUAT tiotropium 0.0025 MG/ACTUAT Me tered Dose Inhaler [Spiriva] Spiriva Respimat 2.5 MCG/ACT Spiriva Respimat 2.5 MCG/ACT 09/04/2019 12:00:00 AM EDT 2.0 {puffs} suspended Spiriva Respimat 2 .5 MCG/ACT eCW1 ([facility]) 28 ACTUAT tiotropium 0.0025 MG/ACTUAT Me tered Dose Inhaler [Spiriva] Spiriva Respimat 2.5 MCG/ACT Spiriva Respimat 2.5 MCG/ACT 09/04/2019 12:00:00 AM EDT 2.0 {puffs} active Spiriva Respimat 2.5 MCG/ACT eCW1 ([facility]) 28 ACTUAT tiotropium 0.0025 MG/ACTUAT Me tered Dose Inhaler [Spiriva] Spiriva Respimat 2.5 MCG/ACT Spiriva Respimat 2.5 MCG/ACT 09/04/2019 12:00:00 AM EDT 2.0 {puffs} suspended Spiriva Respimat 2 .5 MCG/ACT eCW1 ([facility]) 28 ACTUAT tiotropium 0.0025 MG/ACTUAT Me tered Dose Inhaler [Spiriva] Spiriva Respimat 2.5 MCG/ACT Spiriva Respimat 2.5 MCG/ACT 09/04/2019 12:00:00 AM EDT 2.0 {puffs} active Spiriva Respimat 2.5 MCG/ACT eCW1 ([facility]) 28 ACTUAT tiotropium 0.0025 MG/ACTUAT Me tered Dose Inhaler [Spiriva] Spiriva Respimat 2.5 MCG/ACT Spiriva Respimat 2.5 MCG/ACT 09/04/2019 12:00:00 AM EDT 2.0 {puffs} active Spiriva Respimat 2.5 MCG/ACT eCW1 ([facility]) 28 ACTUAT tiotropium 0.0025 MG/ACTUAT Me tered Dose Inhaler [Spiriva] Spiriva Respimat 2.5 MCG/ACT Spiriva Respimat 2.5 MCG/ACT 09/04/2019 12:00:00 AM EDT 2.0 {puffs} suspended Spiriva Respimat 2 .5 MCG/ACT eCW1 ([facility]) 28 ACTUAT tiotropium 0.0025 MG/ACTUAT Me tered Dose Inhaler [Spiriva] Spiriva Respimat 2.5 MCG/ACT Spiriva Respimat 2.5 MCG/ACT 09/04/2019 12:00:00 AM EDT 2.0 {puffs} active Spiriva Respimat 2.5 MCG/ACT eCW1 ([facility]) 28 ACTUAT tiotropium 0.0025 MG/ACTUAT Me tered Dose Inhaler [Spiriva] Spiriva Respimat 2.5 MCG/ACT Spiriva Respimat 2.5 MCG/ACT 09/04/2019 12:00:00 AM EDT 2.0 {puffs} suspended Spiriva Respimat 2 .5 MCG/ACT eCW1 ([facility]) 28 ACTUAT tiotropium 0.0025 MG/ACTUAT Me tered Dose Inhaler [Spiriva] Spiriva Respimat 2.5 MCG/ACT Spiriva Respimat 2.5 MCG/ACT 09/04/2019 12:00:00 AM EDT 2.0 {puffs} active Spiriva Respimat 2.5 MCG/ACT eCW1 ([facility]) 28 ACTUAT tiotropium 0.0025 MG/ACTUAT Me tered Dose Inhaler [Spiriva] Spiriva Respimat 2.5 MCG/ACT Spiriva Respimat 2.5 MCG/ACT 09/04/2019 12:00:00 AM EDT 2.0 {puffs} suspended Spiriva Respimat 2 .5 MCG/ACT eCW1 ([facility]) 28 ACTUAT tiotropium 0.0025 MG/ACTUAT Me tered Dose Inhaler [Spiriva] Spiriva Respimat 2.5 MCG/ACT Spiriva Respimat 2.5 MCG/ACT 09/04/2019 12:00:00 AM EDT 2.0 {puffs} active Spiriva Respimat 2.5 MCG/ACT eCW1 ([facility]) 28 ACTUAT tiotropium 0.0025 MG/ACTUAT Me tered Dose Inhaler [Spiriva] Spiriva Respimat 2.5 MCG/ACT Spiriva Respimat 2.5 MCG/ACT 09/04/2019 12:00:00 AM EDT 2.0 {puffs} active Spiriva Respimat 2.5 MCG/ACT eCW1 ([facility]) 28 ACTUAT tiotropium 0.0025 MG/ACTUAT Me tered Dose Inhaler [Spiriva] Spiriva Respimat 2.5 MCG/ACT Spiriva Respimat 2.5 MCG/ACT 09/04/2019 12:00:00 AM EDT 2.0 {puffs} active Spiriva Respimat 2.5 MCG/ACT eCW1 ([facility]) 28 ACTUAT tiotropium 0.0025 MG/ACTUAT Me tered Dose Inhaler [Spiriva] Spiriva Respimat 2.5 MCG/ACT Spiriva Respimat 2.5 MCG/ACT 09/04/2019 12:00:00 AM EDT 2.0 {puffs} suspended Spiriva Respimat 2 .5 MCG/ACT eCW1 ([facility]) 28 ACTUAT tiotropium 0.0025 MG/ACTUAT Me tered Dose Inhaler [Spiriva] Spiriva Respimat 2.5 MCG/ACT Spiriva Respimat 2.5 MCG/ACT 09/04/2019 12:00:00 AM EDT 2.0 {puffs} active Spiriva Respimat 2.5 MCG/ACT eCW1 ([facility]) 28 ACTUAT tiotropium 0.0025 MG/ACTUAT Me tered Dose Inhaler [Spiriva] Spiriva Respimat 2.5 MCG/ACT Spiriva Respimat 2.5 MCG/ACT 09/04/2019 12:00:00 AM EDT 2.0 {puffs} active Spiriva Respimat 2.5 MCG/ACT eCW1 ([facility]) 28 ACTUAT tiotropium 0.0025 MG/ACTUAT Me tered Dose Inhaler [Spiriva] Spiriva Respimat 2.5 MCG/ACT Spiriva Respimat 2.5 MCG/ACT 09/04/2019 12:00:00 AM EDT 2.0 {puffs} suspended Spiriva Respimat 2 .5 MCG/ACT eCW1 ([facility]) 28 ACTUAT tiotropium 0.0025 MG/ACTUAT Me tered Dose Inhaler [Spiriva] Spiriva Respimat 2.5 MCG/ACT Spiriva Respimat 2.5 MCG/ACT 09/04/2019 12:00:00 AM EDT 2.0 {puffs} suspended Spiriva Respimat 2 .5 MCG/ACT eCW1 ([facility]) 28 ACTUAT tiotropium 0.0025 MG/ACTUAT Me tered Dose Inhaler [Spiriva] Spiriva Respimat 2.5 MCG/ACT Spiriva Respimat 2.5 MCG/ACT 09/04/2019 12:00:00 AM EDT 2.0 {puffs} active Spiriva Respimat 2.5 MCG/ACT eCW1 ([facility]) 28 ACTUAT tiotropium 0.0025 MG/ACTUAT Me tered Dose Inhaler [Spiriva] Spiriva Respimat 2.5 MCG/ACT Spiriva Respimat 2.5 MCG/ACT 09/04/2019 12:00:00 AM EDT 2.0 {puffs} suspended Spiriva Respimat 2 .5 MCG/ACT eCW1 ([facility]) 28 ACTUAT tiotropium 0.0025 MG/ACTUAT Me tered Dose Inhaler [Spiriva] Spiriva Respimat 2.5 MCG/ACT Spiriva Respimat 2.5 MCG/ACT 09/04/2019 12:00:00 AM EDT 2.0 {puffs} active Spiriva Respimat 2.5 MCG/ACT eCW1 ([facility]) 28 ACTUAT tiotropium 0.0025 MG/ACTUAT Me tered Dose Inhaler [Spiriva] Spiriva Respimat 2.5 MCG/ACT Spiriva Respimat 2.5 MCG/ACT 09/04/2019 12:00:00 AM EDT 2.0 {puffs} suspended Spiriva Respimat 2 .5 MCG/ACT eCW1 ([facility]) 28 ACTUAT tiotropium 0.0025 MG/ACTUAT Me tered Dose Inhaler [Spiriva] Spiriva Respimat 2.5 MCG/ACT Spiriva Respimat 2.5 MCG/ACT 09/04/2019 12:00:00 AM EDT 2.0 {puffs} suspended Spiriva Respimat 2 .5 MCG/ACT eCW1 ([facility]) 28 ACTUAT tiotropium 0.0025 MG/ACTUAT Me tered Dose Inhaler [Spiriva] Spiriva Respimat 2.5 MCG/ACT Spiriva Respimat 2.5 MCG/ACT 09/04/2019 12:00:00 AM EDT 2.0 {puffs} active Spiriva Respimat 2.5 MCG/ACT eCW1 ([facility]) 28 ACTUAT tiotropium 0.0025 MG/ACTUAT Me tered Dose Inhaler [Spiriva] Spiriva Respimat 2.5 MCG/ACT Spiriva Respimat 2.5 MCG/ACT 09/04/2019 12:00:00 AM EDT 2.0 {puffs} active Spiriva Respimat 2.5 MCG/ACT eCW1 ([facility]) 28 ACTUAT tiotropium 0.0025 MG/ACTUAT Me tered Dose Inhaler [Spiriva] Spiriva Respimat 2.5 MCG/ACT Spiriva Respimat 2.5 MCG/ACT 09/04/2019 12:00:00 AM EDT 2.0 {puffs} suspended Spiriva Respimat 2 .5 MCG/ACT eCW1 ([facility]) 28 ACTUAT tiotropium 0.0025 MG/ACTUAT Me tered Dose Inhaler [Spiriva] Spiriva Respimat 2.5 MCG/ACT Spiriva Respimat 2.5 MCG/ACT 09/04/2019 12:00:00 AM EDT 2.0 {puffs} active Spiriva Respimat 2.5 MCG/ACT eCW1 ([facility]) 28 ACTUAT tiotropium 0.0025 MG/ACTUAT Me tered Dose Inhaler [Spiriva] Spiriva Respimat 2.5 MCG/ACT Spiriva Respimat 2.5 MCG/ACT 09/04/2019 12:00:00 AM EDT 2.0 {puffs} suspended Spiriva Respimat 2 .5 MCG/ACT eCW1 ([facility]) 28 ACTUAT tiotropium 0.0025 MG/ACTUAT Me tered Dose Inhaler [Spiriva] Spiriva Respimat 2.5 MCG/ACT Spiriva Respimat 2.5 MCG/ACT 09/04/2019 12:00:00 AM EDT 2.0 {puffs} active Spiriva Respimat 2.5 MCG/ACT eCW1 ([facility]) 28 ACTUAT tiotropium 0.0025 MG/ACTUAT Me tered Dose Inhaler [Spiriva] Spiriva Respimat 2.5 MCG/ACT Spiriva Respimat 2.5 MCG/ACT 09/04/2019 12:00:00 AM EDT 2.0 {puffs} active Spiriva Respimat 2.5 MCG/ACT eCW1 ([facility]) 28 ACTUAT tiotropium 0.0025 MG/ACTUAT Me tered Dose Inhaler [Spiriva] Spiriva Respimat 2.5 MCG/ACT Spiriva Respimat 2.5 MCG/ACT 09/04/2019 12:00:00 AM EDT 2.0 {puffs} active Spiriva Respimat 2.5 MCG/ACT eCW1 ([facility]) 28 ACTUAT tiotropium 0.0025 MG/ACTUAT Me tered Dose Inhaler [Spiriva] Spiriva Respimat 2.5 MCG/ACT Spiriva Respimat 2.5 MCG/ACT 09/04/2019 12:00:00 AM EDT 2.0 {puffs} active Spiriva Respimat 2.5 MCG/ACT eCW1 ([facility]) 28 ACTUAT tiotropium 0.0025 MG/ACTUAT Me tered Dose Inhaler [Spiriva] Spiriva Respimat 2.5 MCG/ACT Spiriva Respimat 2.5 MCG/ACT 09/04/2019 12:00:00 AM EDT 2.0 {puffs} active Spiriva Respimat 2.5 MCG/ACT eCW1 ([facility]) 28 ACTUAT tiotropium 0.0025 MG/ACTUAT Me tered Dose Inhaler [Spiriva] Spiriva Respimat 2.5 MCG/ACT Spiriva Respimat 2.5 MCG/ACT 09/04/2019 12:00:00 AM EDT 2.0 {puffs} suspended Spiriva Respimat 2 .5 MCG/ACT eCW1 ([facility]) 28 ACTUAT tiotropium 0.0025 MG/ACTUAT Me tered Dose Inhaler [Spiriva] Spiriva Respimat 2.5 MCG/ACT Spiriva Respimat 2.5 MCG/ACT 09/04/2019 12:00:00 AM EDT 2.0 {puffs} active Spiriva Respimat 2.5 MCG/ACT eCW1 ([facility]) 28 ACTUAT tiotropium 0.0025 MG/ACTUAT Me tered Dose Inhaler [Spiriva] Spiriva Respimat 2.5 MCG/ACT Spiriva Respimat 2.5 MCG/ACT 09/04/2019 12:00:00 AM EDT 2.0 {puffs} suspended Spiriva Respimat 2 .5 MCG/ACT eCW1 ([facility]) 28 ACTUAT tiotropium 0.0025 MG/ACTUAT Me tered Dose Inhaler [Spiriva] Spiriva Respimat 2.5 MCG/ACT Spiriva Respimat 2.5 MCG/ACT 09/04/2019 12:00:00 AM EDT 2.0 {puffs} active Spiriva Respimat 2.5 MCG/ACT eCW1 ([facility]) 28 ACTUAT tiotropium 0.0025 MG/ACTUAT Me tered Dose Inhaler [Spiriva] Spiriva Respimat 2.5 MCG/ACT Spiriva Respimat 2.5 MCG/ACT 09/04/2019 12:00:00 AM EDT 2.0 {puffs} active Spiriva Respimat 2.5 MCG/ACT eCW1 ([facility]) 28 ACTUAT tiotropium 0.0025 MG/ACTUAT Me tered Dose Inhaler [Spiriva] Spiriva Respimat 2.5 MCG/ACT Spiriva Respimat 2.5 MCG/ACT 09/04/2019 12:00:00 AM EDT 2.0 {puffs} active Spiriva Respimat 2.5 MCG/ACT eCW1 ([facility]) 28 ACTUAT tiotropium 0.0025 MG/ACTUAT Me tered Dose Inhaler [Spiriva] Spiriva Respimat 2.5 MCG/ACT Spiriva Respimat 2.5 MCG/ACT 09/04/2019 12:00:00 AM EDT 2.0 {puffs} suspended Spiriva Respimat 2 .5 MCG/ACT eCW1 ([facility]) 28 ACTUAT tiotropium 0.0025 MG/ACTUAT Me tered Dose Inhaler [Spiriva] Spiriva Respimat 2.5 MCG/ACT Spiriva Respimat 2.5 MCG/ACT 09/04/2019 12:00:00 AM EDT 2.0 {puffs} suspended Spiriva Respimat 2 .5 MCG/ACT eCW1 ([facility]) 28 ACTUAT tiotropium 0.0025 MG/ACTUAT Me tered Dose Inhaler [Spiriva] Spiriva Respimat 2.5 MCG/ACT Spiriva Respimat 2.5 MCG/ACT 09/04/2019 12:00:00 AM EDT 2.0 {puffs} active Spiriva Respimat 2.5 MCG/ACT eCW1 ([facility]) 28 ACTUAT tiotropium 0.0025 MG/ACTUAT Me tered Dose Inhaler [Spiriva] Spiriva Respimat 2.5 MCG/ACT Spiriva Respimat 2.5 MCG/ACT 09/04/2019 12:00:00 AM EDT 2.0 {puffs} active Spiriva Respimat 2.5 MCG/ACT eCW1 ([facility]) 28 ACTUAT tiotropium 0.0025 MG/ACTUAT Me tered Dose Inhaler [Spiriva] Spiriva Respimat 2.5 MCG/ACT Spiriva Respimat 2.5 MCG/ACT 09/04/2019 12:00:00 AM EDT 2.0 {puffs} active Spiriva Respimat 2.5 MCG/ACT eCW1 ([facility]) 28 ACTUAT tiotropium 0.0025 MG/ACTUAT Me tered Dose Inhaler [Spiriva] Spiriva Respimat 2.5 MCG/ACT Spiriva Respimat 2.5 MCG/ACT 09/04/2019 12:00:00 AM EDT 2.0 {puffs} active Spiriva Respimat 2.5 MCG/ACT eCW1 ([facility]) 28 ACTUAT tiotropium 0.0025 MG/ACTUAT Me tered Dose Inhaler [Spiriva] Spiriva Respimat 2.5 MCG/ACT Spiriva Respimat 2.5 MCG/ACT 09/04/2019 12:00:00 AM EDT 2.0 {puffs} active Spiriva Respimat 2.5 MCG/ACT eCW1 ([facility]) 28 ACTUAT tiotropium 0.0025 MG/ACTUAT Me tered Dose Inhaler [Spiriva] Spiriva Respimat 2.5 MCG/ACT Spiriva Respimat 2.5 MCG/ACT 09/04/2019 12:00:00 AM EDT 2.0 {puffs} suspended Spiriva Respimat 2 .5 MCG/ACT eCW1 ([facility]) Morphine Sulfate 15 MG Extended Release Oral Tablet Mo rphine Sulfate ER 15 MG Morphine Sulfate ER 15 MG 09/03/2019 12:00:00 AM EDT active Morphine Sulfate ER 15 MG eCW1 ([facility]) Morphine Sulfate 15 MG Extended Release Oral Tablet Mo rphine Sulfate ER 15 MG Morphine Sulfate ER 15 MG 09/03/2019 12:00:00 AM EDT active Morphine Sulfate ER 15 MG eCW1 ([facility]) Morphine Sulfate 15 MG Extended Release Oral Tablet Mo rphine Sulfate ER 15 MG Morphine Sulfate ER 15 MG 09/03/2019 12:00:00 AM EDT active Morphine Sulfate ER 15 MG eCW1 ([facility]) Morphine Sulfate 15 MG Extended Release Oral Tablet Mo rphine Sulfate ER 15 MG Morphine Sulfate ER 15 MG 09/03/2019 12:00:00 AM EDT active Morphine Sulfate ER 15 MG eCW1 ([facility]) Morphine Sulfate 15 MG Extended Release Oral Tablet Mo rphine Sulfate ER 15 MG Morphine Sulfate ER 15 MG 09/03/2019 12:00:00 AM EDT active Morphine Sulfate ER 15 MG eCW1 ([facility]) Morphine Sulfate 15 MG Extended Release Oral Tablet Mo rphine Sulfate ER 15 MG Morphine Sulfate ER 15 MG 09/03/2019 12:00:00 AM EDT active Morphine Sulfate ER 15 MG eCW1 ([facility]) Morphine Sulfate 15 MG Extended Release Oral Tablet Mo rphine Sulfate ER 15 MG Morphine Sulfate ER 15 MG 09/03/2019 12:00:00 AM EDT active Morphine Sulfate ER 15 MG eCW1 ([facility]) Morphine Sulfate 15 MG Extended Release Oral Tablet Mo rphine Sulfate ER 15 MG Morphine Sulfate ER 15 MG 09/03/2019 12:00:00 AM EDT active Morphine Sulfate ER 15 MG eCW1 ([facility]) Morphine Sulfate 15 MG Extended Release Oral Tablet Mo rphine Sulfate ER 15 MG Morphine Sulfate ER 15 MG 09/03/2019 12:00:00 AM EDT active Morphine Sulfate ER 15 MG eCW1 ([facility]) Morphine Sulfate 15 MG Extended Release Oral Tablet Mo rphine Sulfate ER 15 MG Morphine Sulfate ER 15 MG 09/03/2019 12:00:00 AM EDT active Morphine Sulfate ER 15 MG eCW1 ([facility]) 50 mg 08/27/2019 12:00:00 AM EDT [...] Ventolin HFA 108 (90 Base) MCG/ACT eCW1 ([facility]) tiotropium 0.018 MG/ACTUAT Inhalant Powder [Spiriva] S piriva HandiHaler 18 MCG Spiriva HandiHaler 18 MCG 08/25/2019 12:00:00 AM EDT active Spiriva HandiHaler 18 MCG eCW1 ([facility]) 200 ACTUAT Albuterol 0.09 MG/ACTUAT Mete red Dose Inhaler [Ventolin] Ventolin HFA 108 (90 Base) MCG/ACT Ventolin HFA 108 (90 Base) MCG/ACT 08/25/2019 12:00:00 AM EDT 1.0 {puff_as_needed} suspended Ventolin HFA 108 (90 Base) MCG/ACT eCW1 ([facility]) 200 ACTUAT Albuterol 0.09 MG/ACTUAT Mete red Dose Inhaler [Ventolin] Ventolin HFA 108 (90 Base) MCG/ACT Ventolin HFA 108 (90 Base) MCG/ACT 08/25/2019 12:00:00 AM EDT 1.0 {puff_as_needed} suspended Ventolin HFA 108 (90 Base) MCG/ACT eCW1 ([facility]) 200 ACTUAT Albuterol 0.09 MG/ACTUAT Mete red Dose Inhaler [Ventolin] Ventolin HFA 108 (90 Base) MCG/ACT Ventolin HFA 108 (90 Base) MCG/ACT 08/25/2019 12:00:00 AM EDT 1.0 {puff_as_needed} suspended Ventolin HFA 108 (90 Base) MCG/ACT eCW1 ([facility]) tiotropium 0.018 MG/ACTUAT Inhalant Powder [Spiriva] S piriva HandiHaler 18 MCG Spiriva HandiHaler 18 MCG 08/25/2019 12:00:00 AM EDT active Spiriva HandiHaler 18 MCG eCW1 ([facility]) 200 ACTUAT Albuterol 0.09 MG/ACTUAT Mete red Dose Inhaler [Ventolin] Ventolin HFA 108 (90 Base) MCG/ACT Ventolin HFA 108 (90 Base) MCG/ACT 08/25/2019 12:00:00 AM EDT 1.0 {puff_as_needed} active Jovani tolin HFA 108 (90 Base) MCG/ACT eCW1 ([facility]) tiotropium 0.018 MG/ACTUAT Inhalant Powder [Spiriva] S piriva HandiHaler 18 MCG Spiriva HandiHaler 18 MCG 08/25/2019 12:00:00 AM EDT active Spiriva HandiHaler 18 MCG eCW1 ([facility]) 200 ACTUAT Albuterol 0.09 MG/ACTUAT Mete red Dose Inhaler [Ventolin] Ventolin HFA 108 (90 Base) MCG/ACT Ventolin HFA 108 (90 Base) MCG/ACT 08/25/2019 12:00:00 AM EDT 1.0 {puff_as_needed} suspended Ventolin HFA 108 (90 Base) MCG/ACT eCW1 ([facility]) 200 ACTUAT Albuterol 0.09 MG/ACTUAT Mete red Dose Inhaler [Ventolin] Ventolin HFA 108 (90 Base) MCG/ACT Ventolin HFA 108 (90 Base) MCG/ACT 08/25/2019 12:00:00 AM EDT 1.0 {puff_as_needed} active Jovani tolin HFA 108 (90 Base) MCG/ACT eCW1 ([facility]) tiotropium 0.018 MG/ACTUAT Inhalant Powder [Spiriva] S piriva HandiHaler 18 MCG Spiriva HandiHaler 18 MCG 08/25/2019 12:00:00 AM EDT active Spiriva HandiHaler 18 MCG eCW1 ([facility]) 200 ACTUAT Albuterol 0.09 MG/ACTUAT Mete red Dose Inhaler [Ventolin] Ventolin HFA 108 (90 Base) MCG/ACT Ventolin HFA 108 (90 Base) MCG/ACT 08/25/2019 12:00:00 AM EDT 1.0 {puff_as_needed} active Jovani tolin HFA 108 (90 Base) MCG/ACT eCW1 ([facility]) tiotropium 0.018 MG/ACTUAT Inhalant Powder [Spiriva] S piriva HandiHaler 18 MCG Spiriva HandiHaler 18 MCG 08/25/2019 12:00:00 AM EDT active Spiriva HandiHaler 18 MCG eCW1 ([facility]) 200 ACTUAT Albuterol 0.09 MG/ACTUAT Mete red Dose Inhaler [Ventolin] Ventolin HFA 108 (90 Base) MCG/ACT Ventolin HFA 108 (90 Base) MCG/ACT 08/25/2019 12:00:00 AM EDT 1.0 {puff_as_needed} active Jovani tolin HFA 108 (90 Base) MCG/ACT eCW1 ([facility]) 200 ACTUAT Albuterol 0.09 MG/ACTUAT Mete red Dose Inhaler [Ventolin] Ventolin HFA 108 (90 Base) MCG/ACT Ventolin HFA 108 (90 Base) MCG/ACT 08/25/2019 12:00:00 AM EDT 1.0 {puff_as_needed} suspended Ventolin HFA 108 (90 Base) MCG/ACT eCW1 ([facility]) 200 ACTUAT Albuterol 0.09 MG/ACTUAT Mete red Dose Inhaler [Ventolin] Ventolin HFA 108 (90 Base) MCG/ACT Ventolin HFA 108 (90 Base) MCG/ACT 08/25/2019 12:00:00 AM EDT 1.0 {puff_as_needed} suspended Ventolin HFA 108 (90 Base) MCG/ACT eCW1 ([facility]) 200 ACTUAT Albuterol 0.09 MG/ACTUAT Mete red Dose Inhaler [Ventolin] Ventolin HFA 108 (90 Base) MCG/ACT Ventolin HFA 108 (90 Base) MCG/ACT 08/25/2019 12:00:00 AM EDT 1.0 {puff_as_needed} suspended Ventolin HFA 108 (90 Base) MCG/ACT eCW1 ([facility]) 200 ACTUAT Albuterol 0.09 MG/ACTUAT Mete red Dose Inhaler [Ventolin] Ventolin HFA 108 (90 Base) MCG/ACT Ventolin HFA 108 (90 Base) MCG/ACT 08/25/2019 12:00:00 AM EDT 1.0 {puff_as_needed} suspended Ventolin HFA 108 (90 Base) MCG/ACT eCW1 ([facility]) 200 ACTUAT Albuterol 0.09 MG/ACTUAT Mete red Dose Inhaler [Ventolin] Ventolin HFA 108 (90 Base) MCG/ACT Ventolin HFA 108 (90 Base) MCG/ACT 08/25/2019 12:00:00 AM EDT 1.0 {puff_as_needed} suspended Ventolin HFA 108 (90 Base) MCG/ACT eCW1 ([facility]) 200 ACTUAT Albuterol 0.09 MG/ACTUAT Mete red Dose Inhaler [Ventolin] Ventolin HFA 108 (90 Base) MCG/ACT Ventolin HFA 108 (90 Base) MCG/ACT 08/25/2019 12:00:00 AM EDT 1.0 {puff_as_needed} suspended Ventolin HFA 108 (90 Base) MCG/ACT eCW1 ([facility]) 200 ACTUAT Albuterol 0.09 MG/ACTUAT Mete red Dose Inhaler [Ventolin] Ventolin HFA 108 (90 Base) MCG/ACT Ventolin HFA 108 (90 Base) MCG/ACT 08/25/2019 12:00:00 AM EDT 1.0 {puff_as_needed} active Jovani tolin HFA 108 (90 Base) MCG/ACT eCW1 ([facility]) 200 ACTUAT Albuterol 0.09 MG/ACTUAT Mete red Dose Inhaler [Ventolin] Ventolin HFA 108 (90 Base) MCG/ACT Ventolin HFA 108 (90 Base) MCG/ACT 08/25/2019 12:00:00 AM EDT 1.0 {puff_as_needed} suspended Ventolin HFA 108 (90 Base) MCG/ACT eCW1 ([facility]) tiotropium 0.018 MG/ACTUAT Inhalant Powder [Spiriva] S piriva HandiHaler 18 MCG Spiriva HandiHaler 18 MCG 08/25/2019 12:00:00 AM EDT active Spiriva HandiHaler 18 MCG eCW1 ([facility]) 200 ACTUAT Albuterol 0.09 MG/ACTUAT Mete red Dose Inhaler [Ventolin] Ventolin HFA 108 (90 Base) MCG/ACT Ventolin HFA 108 (90 Base) MCG/ACT 08/25/2019 12:00:00 AM EDT 1.0 {puff_as_needed} suspended Ventolin HFA 108 (90 Base) MCG/ACT eCW1 ([facility]) 200 ACTUAT Albuterol 0.09 MG/ACTUAT Mete red Dose Inhaler [Ventolin] Ventolin HFA 108 (90 Base) MCG/ACT Ventolin HFA 108 (90 Base) MCG/ACT 08/25/2019 12:00:00 AM EDT 1.0 {puff_as_needed} active Jovani tolin HFA 108 (90 Base) MCG/ACT eCW1 ([facility]) 200 ACTUAT Albuterol 0.09 MG/ACTUAT Mete red Dose Inhaler [Ventolin] Ventolin HFA 108 (90 Base) MCG/ACT Ventolin HFA 108 (90 Base) MCG/ACT 08/25/2019 12:00:00 AM EDT 1.0 {puff_as_needed} active Jovani tolin HFA 108 (90 Base) MCG/ACT eCW1 ([facility]) 200 ACTUAT Albuterol 0.09 MG/ACTUAT Mete red Dose Inhaler [Ventolin] Ventolin HFA 108 (90 Base) MCG/ACT Ventolin HFA 108 (90 Base) MCG/ACT 08/25/2019 12:00:00 AM EDT 1.0 {puff_as_needed} suspended Ventolin HFA 108 (90 Base) MCG/ACT eCW1 ([facility]) 200 ACTUAT Albuterol 0.09 MG/ACTUAT Mete red Dose Inhaler [Ventolin] Ventolin HFA 108 (90 Base) MCG/ACT Ventolin HFA 108 (90 Base) MCG/ACT 08/25/2019 12:00:00 AM EDT 1.0 {puff_as_needed} suspended Ventolin HFA 108 (90 Base) MCG/ACT eCW1 ([facility]) 200 ACTUAT Albuterol 0.09 MG/ACTUAT Mete red Dose Inhaler [Ventolin] Ventolin HFA 108 (90 Base) MCG/ACT Ventolin HFA 108 (90 Base) MCG/ACT 08/25/2019 12:00:00 AM EDT 1.0 {puff_as_needed} suspended Ventolin HFA 108 (90 Base) MCG/ACT eCW1 ([facility]) 200 ACTUAT Albuterol 0.09 MG/ACTUAT Mete red Dose Inhaler [Ventolin] Ventolin HFA 108 (90 Base) MCG/ACT Ventolin HFA 108 (90 Base) MCG/ACT 08/25/2019 12:00:00 AM EDT 1.0 {puff_as_needed} suspended Ventolin HFA 108 (90 Base) MCG/ACT eCW1 ([facility]) 200 ACTUAT Albuterol 0.09 MG/ACTUAT Mete red Dose Inhaler [Ventolin] Ventolin HFA 108 (90 Base) MCG/ACT Ventolin HFA 108 (90 Base) MCG/ACT 08/25/2019 12:00:00 AM EDT 1.0 {puff_as_needed} suspended Ventolin HFA 108 (90 Base) MCG/ACT eCW1 ([facility]) 200 ACTUAT Albuterol 0.09 MG/ACTUAT Mete red Dose Inhaler [Ventolin] Ventolin HFA 108 (90 Base) MCG/ACT Ventolin HFA 108 (90 Base) MCG/ACT 08/25/2019 12:00:00 AM EDT 1.0 {puff_as_needed} suspended Ventolin HFA 108 (90 Base) MCG/ACT eCW1 ([facility]) 200 ACTUAT Albuterol 0.09 MG/ACTUAT Mete red Dose Inhaler [Ventolin] Ventolin HFA 108 (90 Base) MCG/ACT Ventolin HFA 108 (90 Base) MCG/ACT 08/25/2019 12:00:00 AM EDT 1.0 {puff_as_needed} suspended Ventolin HFA 108 (90 Base) MCG/ACT eCW1 ([facility]) tiotropium 0.018 MG/ACTUAT Inhalant Powder [Spiriva] S piriva HandiHaler 18 MCG Spiriva HandiHaler 18 MCG 08/25/2019 12:00:00 AM EDT active Spiriva HandiHaler 18 MCG eCW1 ([facility]) 200 ACTUAT Albuterol 0.09 MG/ACTUAT Mete red Dose Inhaler [Ventolin] Ventolin HFA 108 (90 Base) MCG/ACT Ventolin HFA 108 (90 Base) MCG/ACT 08/25/2019 12:00:00 AM EDT 1.0 {puff_as_needed} suspended Ventolin HFA 108 (90 Base) MCG/ACT eCW1 ([facility]) tiotropium 0.018 MG/ACTUAT Inhalant Powder [Spiriva] S piriva HandiHaler 18 MCG Spiriva HandiHaler 18 MCG 08/25/2019 12:00:00 AM EDT active Spiriva HandiHaler 18 MCG eCW1 ([facility]) 200 ACTUAT Albuterol 0.09 MG/ACTUAT Mete red Dose Inhaler [Ventolin] Ventolin HFA 108 (90 Base) MCG/ACT Ventolin HFA 108 (90 Base) MCG/ACT 08/25/2019 12:00:00 AM EDT 1.0 {puff_as_needed} active Jovani tolin HFA 108 (90 Base) MCG/ACT eCW1 ([facility]) 10-325 mg 08/15/2019 12:00:00 AM EDT [...] {tablet_as_needed} active Percocet 10-3 25 MG eCW1 ([facility]) Acetaminophen 325 MG / Oxycodone Hydroch loride 10 MG Oral Tablet [Percocet] Percocet 10-325 MG Percocet 10-325 MG 08/07/2019 12:00:00 AM EDT 1.0 {tablet_as_needed} suspended Percocet 10 -325 MG eCW1 ([facility]) Acetaminophen 325 MG / Oxycodone Hydroch loride 10 MG Oral Tablet [Percocet] Percocet 10-325 MG Percocet 10-325 MG 08/07/2019 12:00:00 AM EDT 1.0 {tablet_as_needed} suspended Percocet 10 -325 MG eCW1 ([facility]) Acetaminophen 325 MG / Oxycodone Hydroch loride 10 MG Oral Tablet [Percocet] Percocet 10-325 MG Percocet 10-325 MG 08/07/2019 12:00:00 AM EDT 1.0 {tablet_as_needed} active Percocet 10-3 25 MG eCW1 ([facility]) Acetaminophen 325 MG / Oxycodone Hydroch loride 10 MG Oral Tablet [Percocet] Percocet 10-325 MG Percocet 10-325 MG 08/07/2019 12:00:00 AM EDT 1.0 {tablet_as_needed} suspended Percocet 10 -325 MG eCW1 ([facility]) Acetaminophen 325 MG / Oxycodone Hydroch loride 10 MG Oral Tablet [Percocet] Percocet 10-325 MG Percocet 10-325 MG 08/07/2019 12:00:00 AM EDT 1.0 {tablet_as_needed} suspended Percocet 10 -325 MG eCW1 ([facility]) Acetaminophen 325 MG / Oxycodone Hydroch loride 10 MG Oral Tablet [Percocet] Percocet 10-325 MG Percocet 10-325 MG 08/07/2019 12:00:00 AM EDT 1.0 {tablet_as_needed} active Percocet 10-3 25 MG eCW1 ([facility]) Acetaminophen 325 MG / Oxycodone Hydroch loride 10 MG Oral Tablet [Percocet] Percocet 10-325 MG Percocet 10-325 MG 08/07/2019 12:00:00 AM EDT 1.0 {tablet_as_needed} suspended Percocet 10 -325 MG eCW1 ([facility]) Acetaminophen 325 MG / Oxycodone Hydroch loride 10 MG Oral Tablet [Percocet] Percocet 10-325 MG Percocet 10-325 MG 08/07/2019 12:00:00 AM EDT 1.0 {tablet_as_needed} active Percocet 10-3 25 MG eCW1 ([facility]) Acetaminophen 325 MG / Oxycodone Hydroch loride 10 MG Oral Tablet [Percocet] Percocet 10-325 MG Percocet 10-325 MG 08/07/2019 12:00:00 AM EDT 1.0 {tablet_as_needed} active Percocet 10-3 25 MG eCW1 ([facility]) Acetaminophen 325 MG / Oxycodone Hydroch loride 10 MG Oral Tablet [Percocet] Percocet 10-325 MG Percocet 10-325 MG 08/07/2019 12:00:00 AM EDT 1.0 {tablet_as_needed} active Percocet 10-3 25 MG eCW1 ([facility]) Acetaminophen 325 MG / Oxycodone Hydroch loride 10 MG Oral Tablet [Percocet] Percocet 10-325 MG Percocet 10-325 MG 08/07/2019 12:00:00 AM EDT 1.0 {tablet_as_needed} active Percocet 10-3 25 MG eCW1 ([facility]) Acetaminophen 325 MG / Oxycodone Hydroch loride 10 MG Oral Tablet [Percocet] Percocet 10-325 MG Percocet 10-325 MG 08/07/2019 12:00:00 AM EDT 1.0 {tablet_as_needed} active Percocet 10-3 25 MG eCW1 ([facility]) Acetaminophen 325 MG / Oxycodone Hydroch loride 10 MG Oral Tablet [Percocet] Percocet 10-325 MG Percocet 10-325 MG 08/07/2019 12:00:00 AM EDT 1.0 {tablet_as_needed} suspended Percocet 10 -325 MG eCW1 ([facility]) Acetaminophen 325 MG / Oxycodone Hydroch loride 10 MG Oral Tablet [Percocet] Percocet 10-325 MG Percocet 10-325 MG 08/07/2019 12:00:00 AM EDT 1.0 {tablet_as_needed} suspended Percocet 10 -325 MG eCW1 ([facility]) Acetaminophen 325 MG / Oxycodone Hydroch loride 10 MG Oral Tablet [Percocet] Percocet 10-325 MG Percocet 10-325 MG 08/07/2019 12:00:00 AM EDT 1.0 {tablet_as_needed} suspended Percocet 10 -325 MG eCW1 ([facility]) Acetaminophen 325 MG / Oxycodone Hydroch loride 10 MG Oral Tablet [Percocet] Percocet 10-325 MG Percocet 10-325 MG 08/07/2019 12:00:00 AM EDT 1.0 {tablet_as_needed} active Percocet 10-3 25 MG eCW1 ([facility]) Acetaminophen 325 MG / Oxycodone Hydroch loride 10 MG Oral Tablet [Percocet] Percocet 10-325 MG Percocet 10-325 MG 08/07/2019 12:00:00 AM EDT 1.0 {tablet_as_needed} active Percocet 10-3 25 MG eCW1 ([facility]) Acetaminophen 325 MG / Oxycodone Hydroch loride 10 MG Oral Tablet [Percocet] Percocet 10-325 MG Percocet 10-325 MG 08/07/2019 12:00:00 AM EDT 1.0 {tablet_as_needed} active Percocet 10-3 25 MG eCW1 ([facility]) Acetaminophen 325 MG / Oxycodone Hydroch loride 10 MG Oral Tablet [Percocet] Percocet 10-325 MG Percocet 10-325 MG 08/07/2019 12:00:00 AM EDT 1.0 {tablet_as_needed} active Percocet 10-3 25 MG eCW1 ([facility]) Acetaminophen 325 MG / Oxycodone Hydroch loride 10 MG Oral Tablet [Percocet] Percocet 10-325 MG Percocet 10-325 MG 08/07/2019 12:00:00 AM EDT 1.0 {tablet_as_needed} suspended Percocet 10 -325 MG eCW1 ([facility]) Acetaminophen 325 MG / Oxycodone Hydroch loride 10 MG Oral Tablet [Percocet] Percocet 10-325 MG Percocet 10-325 MG 08/07/2019 12:00:00 AM EDT 1.0 {tablet_as_needed} active Percocet 10-3 25 MG eCW1 ([facility]) Acetaminophen 325 MG / Oxycodone Hydroch loride 10 MG Oral Tablet [Percocet] Percocet 10-325 MG Percocet 10-325 MG 08/07/2019 12:00:00 AM EDT 1.0 {tablet_as_needed} active Percocet 10-3 25 MG eCW1 ([facility]) Acetaminophen 325 MG / Oxycodone Hydroch loride 10 MG Oral Tablet [Percocet] Percocet 10-325 MG Percocet 10-325 MG 08/07/2019 12:00:00 AM EDT 1.0 {tablet_as_needed} suspended Percocet 10 -325 MG eCW1 ([facility]) Acetaminophen 325 MG / Oxycodone Hydroch loride 10 MG Oral Tablet [Percocet] Percocet 10-325 MG Percocet 10-325 MG 08/07/2019 12:00:00 AM EDT 1.0 {tablet_as_needed} suspended Percocet 10 -325 MG eCW1 ([facility]) Acetaminophen 325 MG / Oxycodone Hydroch loride 10 MG Oral Tablet [Percocet] Percocet 10-325 MG Percocet 10-325 MG 08/07/2019 12:00:00 AM EDT 1.0 {tablet_as_needed} suspended Percocet 10 -325 MG eCW1 ([facility]) Acetaminophen 325 MG / Oxycodone Hydroch loride 10 MG Oral Tablet [Percocet] Percocet 10-325 MG Percocet 10-325 MG 08/07/2019 12:00:00 AM EDT 1.0 {tablet_as_needed} active Percocet 10-3 25 MG eCW1 ([facility]) Acetaminophen 325 MG / Oxycodone Hydroch loride 10 MG Oral Tablet [Percocet] Percocet 10-325 MG Percocet 10-325 MG 08/07/2019 12:00:00 AM EDT 1.0 {tablet_as_needed} active Percocet 10-3 25 MG eCW1 ([facility]) Acetaminophen 325 MG / Oxycodone Hydroch loride 10 MG Oral Tablet [Percocet] Percocet 10-325 MG Percocet 10-325 MG 08/07/2019 12:00:00 AM EDT 1.0 {tablet_as_needed} active Percocet 10-3 25 MG eCW1 ([facility]) 15 mg 08/06/2019 12:00:00 AM EDT [...] ac tive Propranolol HCl 10 MG eCW1 ([facility]) Chlorthalidone 25 MG Oral Tablet Chlorthalidone 25 MG 2019 12:00:00 AM EDT 1.0 {tablet_in_the_morning_with_food} active Chlorthalidone 25 MG eCW1 ([facility]) 10 mg 08/04/2019 12:00:00 AM EDT tablet 60 TAKE ONE TABLET BY MOUTH TWICE A DAY TAKE ONE TABLET BY MOUTH TWICE A DAY SOLD: 08/05/2019 [facility] Morphine Sulfate 15 MG Extended Release Oral Tablet Mo rphine Sulfate ER 15 MG Morphine Sulfate ER 15 MG 07/28/2019 12:00:00 AM EDT active Morphine Sulfate ER 15 MG eCW1 ([facility]) Morphine Sulfate 15 MG Extended Release Oral Tablet Mo rphine Sulfate ER 15 MG Morphine Sulfate ER 15 MG 07/28/2019 12:00:00 AM EDT active Morphine Sulfate ER 15 MG eCW1 ([facility]) Morphine Sulfate 15 MG Extended Release Oral Tablet Mo rphine Sulfate ER 15 MG Morphine Sulfate ER 15 MG 07/28/2019 12:00:00 AM EDT active Morphine Sulfate ER 15 MG eCW1 ([facility]) Morphine Sulfate 15 MG Extended Release Oral Tablet Mo rphine Sulfate ER 15 MG Morphine Sulfate ER 15 MG 07/28/2019 12:00:00 AM EDT active Morphine Sulfate ER 15 MG eCW1 ([facility]) Morphine Sulfate 15 MG Extended Release Oral Tablet Mo rphine Sulfate ER 15 MG Morphine Sulfate ER 15 MG 07/28/2019 12:00:00 AM EDT active Morphine Sulfate ER 15 MG eCW1 ([facility]) 300 mg 07/28/2019 12:00:00 AM EDT [...] active Morphine Sulfate ER 15 MG eCW1 ([facility]) Morphine Sulfate 15 MG Extended Release Oral Tablet Mo rphine Sulfate ER 15 MG Morphine Sulfate ER 15 MG 07/28/2019 12:00:00 AM EDT active Morphine Sulfate ER 15 MG eCW1 ([facility]) Morphine Sulfate 15 MG Extended Release Oral Tablet Mo rphine Sulfate ER 15 MG Morphine Sulfate ER 15 MG 07/28/2019 12:00:00 AM EDT active Morphine Sulfate ER 15 MG eCW1 ([facility]) 300 mg 07/28/2019 12:00:00 AM EDT [...] active Morphine Sulfate ER 15 MG eCW1 ([facility]) Morphine Sulfate 15 MG Extended Release Oral Tablet Mo rphine Sulfate ER 15 MG Morphine Sulfate ER 15 MG 07/28/2019 12:00:00 AM EDT active Morphine Sulfate ER 15 MG eCW1 ([facility]) 10-325 mg 07/17/2019 12:00:00 AM EDT [...] EDT active 1 tablet as needed eCW1 ([facility]) Amitriptyline Hydrochloride 25 MG Oral Tablet [...] active Morphine Sulfate ER 15 MG eCW1 ([facility]) Morphine Sulfate 15 MG Extended Release Oral Tablet Mo rphine Sulfate ER 15 MG Morphine Sulfate ER 15 MG 07/07/2019 12:00:00 AM EDT active Morphine Sulfate ER 15 MG eCW1 ([facility]) Morphine Sulfate 15 MG Extended Release Oral Tablet Mo rphine Sulfate ER 15 MG Morphine Sulfate ER 15 MG 07/07/2019 12:00:00 AM EDT active 1 to 2 as directed eCW1 ([facility]) 15 mg 07/07/2019 12:00:00 AM EDT [...] active Morphine Sulfate ER 15 MG eCW1 ([facility]) 100,000 unit/gram 06/25/2019 12:00:00 AM EDT cream [...] {tablet_as_needed} active Percocet 10-3 25 MG eCW1 ([facility]) Acetaminophen 325 MG / Oxycodone Hydroch loride 10 MG Oral Tablet [Percocet] Percocet 10-325 MG Percocet 10-325 MG 06/17/2019 12:00:00 AM EDT 1.0 {tablet_as_needed} active Percocet 10-3 25 MG eCW1 ([facility]) Acetaminophen 325 MG / Oxycodone Hydroch loride 10 MG Oral Tablet [Percocet] Percocet 10-325 MG Percocet 10-325 MG 06/17/2019 12:00:00 AM EDT active 1 tablet as needed eCW1 ([facility]) Acetaminophen 325 MG / Oxycodone Hydroch loride 10 MG Oral Tablet [Percocet] Percocet 10-325 MG Percocet 10-325 MG 06/17/2019 12:00:00 AM EDT 1.0 {tablet_as_needed} active Percocet 10-3 25 MG eCW1 ([facility]) Acetaminophen 325 MG / Oxycodone Hydroch loride 10 MG Oral Tablet [Percocet] Percocet 10-325 MG Percocet 10-325 MG 06/17/2019 12:00:00 AM EDT active 1 tablet as needed eCW1 ([facility]) Acetaminophen 325 MG / Oxycodone Hydroch loride 10 MG Oral Tablet [Percocet] Percocet 10-325 MG Percocet 10-325 MG 06/17/2019 12:00:00 AM EDT 1.0 {tablet_as_needed} active Percocet 10-3 25 MG eCW1 ([facility]) Acetaminophen 325 MG / Oxycodone Hydroch loride 10 MG Oral Tablet [Percocet] Percocet 10-325 MG Percocet 10-325 MG 06/17/2019 12:00:00 AM EDT 1.0 {tablet_as_needed} active Percocet 10-3 25 MG eCW1 ([facility]) Acetaminophen 325 MG / Oxycodone Hydroch loride 10 MG Oral Tablet [Percocet] Percocet 10-325 MG Percocet 10-325 MG 06/17/2019 12:00:00 AM EDT 1.0 {tablet_as_needed} active Percocet 10-3 25 MG eCW1 ([facility]) 5 mg 06/11/2019 12:00:00 AM EDT tablet [...] active 1 to 2 as directed eCW1 ([facility]) Morphine Sulfate 15 MG Extended Release Oral Tablet Mo rphine Sulfate ER 15 MG Morphine Sulfate ER 15 MG 06/03/2019 12:00:00 AM EDT active 1 to 2 as directed eCW1 ([facility]) 40 mg 06/03/2019 12:00:00 AM EDT [...] active 1 to 2 as directed eCW1 ([facility]) 350 mg 05/31/2019 12:00:00 AM EDT tablet [...] EDT active 1 tablet as needed eCW1 ([facility]) Acetaminophen 325 MG / Oxycodone Hydroch loride 10 MG Oral Tablet [Percocet] Percocet 10-325 MG Percocet 10-325 MG 05/18/2019 12:00:00 AM EDT active 1 tablet as needed eCW1 ([facility]) Acetaminophen 325 MG / Oxycodone Hydroch loride 10 MG Oral Tablet [Percocet] Percocet 10-325 MG Percocet 10-325 MG 05/18/2019 12:00:00 AM EDT active 1 tablet as needed eCW1 ([facility]) 800 mg 05/16/2019 12:00:00 AM EDT [...] active 1 to 2 as directed eCW1 ([facility]) Morphine Sulfate 15 MG Extended Release Oral Tablet Mo rphine Sulfate ER 15 MG Morphine Sulfate ER 15 MG 05/04/2019 12:00:00 AM EDT active 1 to 2 as directed eCW1 ([facility]) Morphine Sulfate 15 MG Extended Release Oral Tablet Mo rphine Sulfate ER 15 MG Morphine Sulfate ER 15 MG 05/04/2019 12:00:00 AM EDT active 1 to 2 as directed eCW1 ([facility]) 100,000 unit/gram 04/30/2019 12:00:00 AM EDT [...] EDT active 1 tablet as needed eCW1 ([facility]) 10-325 mg 04/21/2019 12:00:00 AM EDT [...] active 1 to 2 as directed eCW1 ([facility]) Morphine Sulfate 15 MG Extended Release Oral Tablet Mo rphine Sulfate ER 15 MG Morphine Sulfate ER 15 MG 04/08/2019 12:00:00 AM EST active 1 to 2 as directed eCW1 ([facility]) Amitriptyline Hydrochloride 25 MG Oral Tablet [...] 10 days, Max Daily Dose: [address] [facility] 20 mg 03/27/2019 12:00:00 AM EST tablet [...] 12:00:00 AM EST active 1 tablet eCW1 ([facility]) atorvastatin 40 MG Oral Tablet Atorvastatin Calcium 40 MG Atorvastatin Calcium 40 MG 03/26/2019 12:00:00 AM EST 1.0 {tablet} activ e Atorvastatin Calcium 40 MG eCW1 ([facility]) atorvastatin 40 MG Oral Tablet Atorvastatin Calcium 40 MG Atorvastatin Calcium 40 MG 03/26/2019 12:00:00 AM EST active 1 tablet eCW1 ([facility]) atorvastatin 40 MG Oral Tablet Atorvastatin Calcium 40 MG Atorvastatin Calcium 40 MG 03/26/2019 12:00:00 AM EST 1.0 {tablet} activ e Atorvastatin Calcium 40 MG eCW1 ([facility]) atorvastatin 40 MG Oral Tablet Atorvastatin Calcium 40 MG Atorvastatin Calcium 40 MG 03/26/2019 12:00:00 AM EST 1.0 {tablet} activ e Atorvastatin Calcium 40 MG eCW1 ([facility]) atorvastatin 40 MG Oral Tablet Atorvastatin Calcium 40 MG Atorvastatin Calcium 40 MG 03/26/2019 12:00:00 AM EST 1.0 {tablet} activ e Atorvastatin Calcium 40 MG eCW1 ([facility]) atorvastatin 40 MG Oral Tablet Atorvastatin Calcium 40 MG Atorvastatin Calcium 40 MG 03/26/2019 12:00:00 AM EST 1.0 {tablet} activ e Atorvastatin Calcium 40 MG eCW1 ([facility]) atorvastatin 40 MG Oral Tablet Atorvastatin Calcium 40 MG Atorvastatin Calcium 40 MG 03/26/2019 12:00:00 AM EST 1.0 {tablet} activ e Atorvastatin Calcium 40 MG eCW1 ([facility]) atorvastatin 40 MG Oral Tablet Atorvastatin Calcium 40 MG Atorvastatin Calcium 40 MG 03/26/2019 12:00:00 AM EST 1.0 {tablet} activ e Atorvastatin Calcium 40 MG eCW1 ([facility]) atorvastatin 40 MG Oral Tablet Atorvastatin Calcium 40 MG Atorvastatin Calcium 40 MG 03/26/2019 12:00:00 AM EST 1.0 {tablet} activ e Atorvastatin Calcium 40 MG eCW1 ([facility]) atorvastatin 40 MG Oral Tablet Atorvastatin Calcium 40 MG Atorvastatin Calcium 40 MG 03/26/2019 12:00:00 AM EST 1.0 {tablet} activ e Atorvastatin Calcium 40 MG eCW1 ([facility]) atorvastatin 40 MG Oral Tablet Atorvastatin Calcium 40 MG Atorvastatin Calcium 40 MG 03/26/2019 12:00:00 AM EST 1.0 {tablet} activ e Atorvastatin Calcium 40 MG eCW1 ([facility]) atorvastatin 40 MG Oral Tablet Atorvastatin Calcium 40 MG Atorvastatin Calcium 40 MG 03/26/2019 12:00:00 AM EST 1.0 {tablet} activ e Atorvastatin Calcium 40 MG eCW1 ([facility]) atorvastatin 40 MG Oral Tablet Atorvastatin Calcium 40 MG Atorvastatin Calcium 40 MG 03/26/2019 12:00:00 AM EST 1.0 {tablet} activ e Atorvastatin Calcium 40 MG eCW1 ([facility]) atorvastatin 40 MG Oral Tablet Atorvastatin Calcium 40 MG Atorvastatin Calcium 40 MG 03/26/2019 12:00:00 AM EST 1.0 {tablet} activ e Atorvastatin Calcium 40 MG eCW1 ([facility]) atorvastatin 40 MG Oral Tablet Atorvastatin Calcium 40 MG Atorvastatin Calcium 40 MG 03/26/2019 12:00:00 AM EST 1.0 {tablet} activ e Atorvastatin Calcium 40 MG eCW1 ([facility]) atorvastatin 40 MG Oral Tablet Atorvastatin Calcium 40 MG Atorvastatin Calcium 40 MG 03/26/2019 12:00:00 AM EST 1.0 {tablet} activ e Atorvastatin Calcium 40 MG eCW1 ([facility]) atorvastatin 40 MG Oral Tablet Atorvastatin Calcium 40 MG Atorvastatin Calcium 40 MG 03/26/2019 12:00:00 AM EST 1.0 {tablet} activ e Atorvastatin Calcium 40 MG eCW1 ([facility]) atorvastatin 40 MG Oral Tablet Atorvastatin Calcium 40 MG Atorvastatin Calcium 40 MG 03/26/2019 12:00:00 AM EST 1.0 {tablet} activ e Atorvastatin Calcium 40 MG eCW1 ([facility]) atorvastatin 40 MG Oral Tablet Atorvastatin Calcium 40 MG Atorvastatin Calcium 40 MG 03/26/2019 12:00:00 AM EST 1.0 {tablet} activ e Atorvastatin Calcium 40 MG eCW1 ([facility]) atorvastatin 40 MG Oral Tablet Atorvastatin Calcium 40 MG Atorvastatin Calcium 40 MG 03/26/2019 12:00:00 AM EST 1.0 {tablet} activ e Atorvastatin Calcium 40 MG eCW1 ([facility]) atorvastatin 40 MG Oral Tablet Atorvastatin Calcium 40 MG Atorvastatin Calcium 40 MG 03/26/2019 12:00:00 AM EST 1.0 {tablet} activ e Atorvastatin Calcium 40 MG eCW1 ([facility]) Ergocalciferol 48779 UNT Oral Capsule Vi tamin D (Ergocalciferol) 1.25 MG (52478 UT) Oral Capsule (ERGOCALCIFEROL) Vitamin D (Ergocalciferol) 1.25 MG (5000 0 UT) Oral Capsule (ERGOCALCIFEROL) 03/26/2019 12:00:00 AM EST [facility] Losartan Potassium 50 MG Oral Tablet [place] Potassium 50 MG Oral Tablet (COZAAR) Losartan Potassium 50 MG Oral Tablet (COZAAR) 03/26/19 12:00:00 AM EST active [facility] atorvastatin 40 MG Oral Tablet Atorvastatin Calcium 40 MG Oral Tablet (LIPITOR) Atorvastatin Calcium 40 MG Oral Tablet (LIPITOR) 03/26/2019 12:00:00 AM EST active [facility] atorvastatin 40 MG Oral Tablet Atorvastatin Calcium 40 MG Atorvastatin Calcium 40 MG 03/26/2019 12:00:00 AM EST active 1 tablet eCW1 ([facility]) atorvastatin 40 MG Oral Tablet Atorvastatin Calcium 40 MG Atorvastatin Calcium 40 MG 03/26/2019 12:00:00 AM EST 1.0 {tablet} activ e Atorvastatin Calcium 40 MG eCW1 ([facility]) Nystatin 759192 UNT/ML Topical Cream Nystatin 338382 U NIT/GM Nystatin 644993 UNIT/GM 03/26/2019 12:00:00 AM EST active 1 application 2g eCW1 ([facility]) atorvastatin 40 MG Oral Tablet Atorvastatin Calcium 40 MG Atorvastatin Calcium 40 MG 03/26/2019 12:00:00 AM EST 1.0 {tablet} activ e Atorvastatin Calcium 40 MG eCW1 ([facility]) atorvastatin 40 MG Oral Tablet Atorvastatin Calcium 40 MG Atorvastatin Calcium 40 MG 03/26/2019 12:00:00 AM EST 1.0 {tablet} activ e Atorvastatin Calcium 40 MG eCW1 ([facility]) atorvastatin 40 MG Oral Tablet Atorvastatin Calcium 40 MG Atorvastatin Calcium 40 MG 03/26/2019 12:00:00 AM EST active 1 tablet eCW1 ([facility]) atorvastatin 40 MG Oral Tablet Atorvastatin Calcium 40 MG Atorvastatin Calcium 40 MG 03/26/2019 12:00:00 AM EST 1.0 {tablet} activ e Atorvastatin Calcium 40 MG eCW1 ([facility]) atorvastatin 40 MG Oral Tablet Atorvastatin Calcium 40 MG Atorvastatin Calcium 40 MG 03/26/2019 12:00:00 AM EST 1.0 {tablet} activ e Atorvastatin Calcium 40 MG eCW1 ([facility]) atorvastatin 40 MG Oral Tablet Atorvastatin Calcium 40 MG Atorvastatin Calcium 40 MG 03/26/2019 12:00:00 AM EST 1.0 {tablet} activ e Atorvastatin Calcium 40 MG eCW1 ([facility]) atorvastatin 40 MG Oral Tablet Atorvastatin Calcium 40 MG Atorvastatin Calcium 40 MG 03/26/2019 12:00:00 AM EST 1.0 {tablet} activ e Atorvastatin Calcium 40 MG eCW1 ([facility]) atorvastatin 40 MG Oral Tablet Atorvastatin Calcium 40 MG Atorvastatin Calcium 40 MG 03/26/2019 12:00:00 AM EST 1.0 {tablet} activ e Atorvastatin Calcium 40 MG eCW1 ([facility]) Nystatin 730636 UNT/ML Topical Cream Nystatin 672634 U NIT/GM Nystatin [id number] UNIT/GM 03/26/2019 12:00:00 AM EST active 1 application 2g eCW1 ([facility]) atorvastatin 40 MG Oral Tablet Atorvastatin Calcium 40 MG Atorvastatin Calcium 40 MG 03/26/2019 12:00:00 AM EST 1.0 {tablet} activ e Atorvastatin Calcium 40 MG eCW1 ([facility]) atorvastatin 40 MG Oral Tablet Atorvastatin Calcium 40 MG Atorvastatin Calcium 40 MG 03/26/2019 12:00:00 AM EST active 1 tablet eCW1 ([facility]) atorvastatin 40 MG Oral Tablet Atorvastatin Calcium 40 MG Atorvastatin Calcium 40 MG 03/26/2019 12:00:00 AM EST 1.0 {tablet} activ e Atorvastatin Calcium 40 MG eCW1 ([facility]) atorvastatin 40 MG Oral Tablet Atorvastatin Calcium 40 MG Atorvastatin Calcium 40 MG 03/26/2019 12:00:00 AM EST 1.0 {tablet} activ e Atorvastatin Calcium 40 MG eCW1 ([facility]) atorvastatin 40 MG Oral Tablet Atorvastatin Calcium 40 MG Atorvastatin Calcium 40 MG 03/26/2019 12:00:00 AM EST 1.0 {tablet} activ e Atorvastatin Calcium 40 MG eCW1 ([facility]) atorvastatin 40 MG Oral Tablet Atorvastatin Calcium 40 MG Atorvastatin Calcium 40 MG 03/26/2019 12:00:00 AM EST 1.0 {tablet} activ e Atorvastatin Calcium 40 MG eCW1 ([facility]) atorvastatin 40 MG Oral Tablet Atorvastatin Calcium 40 MG Atorvastatin Calcium 40 MG 03/26/2019 12:00:00 AM EST 1.0 {tablet} activ e Atorvastatin Calcium 40 MG eCW1 ([facility]) atorvastatin 40 MG Oral Tablet Atorvastatin Calcium 40 MG Atorvastatin Calcium 40 MG 03/26/2019 12:00:00 AM EST 1.0 {tablet} activ e Atorvastatin Calcium 40 MG eCW1 ([facility]) atorvastatin 40 MG Oral Tablet Atorvastatin Calcium 40 MG Atorvastatin Calcium 40 MG 03/26/2019 12:00:00 AM EST 1.0 {tablet} activ e Atorvastatin Calcium 40 MG eCW1 ([facility]) atorvastatin 40 MG Oral Tablet Atorvastatin Calcium 40 MG Atorvastatin Calcium 40 MG 03/26/2019 12:00:00 AM EST 1.0 {tablet} activ e Atorvastatin Calcium 40 MG eCW1 ([facility]) Nystatin 084678 UNT/ML Topical Cream Nystatin 426676 U NIT/GM Nystatin 696850 UNIT/GM 03/26/2019 12:00:00 AM EST active 1 application 2g eCW1 ([facility]) atorvastatin 40 MG Oral Tablet Atorvastatin Calcium 40 MG Atorvastatin Calcium 40 MG 03/26/2019 12:00:00 AM EST 1.0 {tablet} activ e Atorvastatin Calcium 40 MG eCW1 ([facility]) atorvastatin 40 MG Oral Tablet Atorvastatin Calcium 40 MG Atorvastatin Calcium 40 MG 03/26/2019 12:00:00 AM EST 1.0 {tablet} activ e Atorvastatin Calcium 40 MG eCW1 ([facility]) atorvastatin 40 MG Oral Tablet Atorvastatin Calcium 40 MG Atorvastatin Calcium 40 MG 03/26/2019 12:00:00 AM EST 1.0 {tablet} activ e Atorvastatin Calcium 40 MG eCW1 ([facility]) atorvastatin 40 MG Oral Tablet Atorvastatin Calcium 40 MG Atorvastatin Calcium 40 MG 03/26/2019 12:00:00 AM EST 1.0 {tablet} activ e Atorvastatin Calcium 40 MG eCW1 ([facility]) atorvastatin 40 MG Oral Tablet Atorvastatin Calcium 40 MG Atorvastatin Calcium 40 MG 03/26/2019 12:00:00 AM EST 1.0 {tablet} activ e Atorvastatin Calcium 40 MG eCW1 ([facility]) atorvastatin 40 MG Oral Tablet Atorvastatin Calcium 40 MG Atorvastatin Calcium 40 MG 03/26/2019 12:00:00 AM EST 1.0 {tablet} activ e Atorvastatin Calcium 40 MG eCW1 ([facility]) Nystatin 402922 UNT/ML Topical Cream Nystatin 806242 U NIT/GM Nystatin 932150 UNIT/GM 03/26/2019 12:00:00 AM EST active 1 application 2g eCW1 ([facility]) atorvastatin 40 MG Oral Tablet Atorvastatin Calcium 40 MG Atorvastatin Calcium 40 MG 03/26/2019 12:00:00 AM EST 1.0 {tablet} activ e Atorvastatin Calcium 40 MG eCW1 ([facility]) atorvastatin 40 MG Oral Tablet Atorvastatin Calcium 40 MG Atorvastatin Calcium 40 MG 03/26/2019 12:00:00 AM EST active 1 tablet eCW1 ([facility]) atorvastatin 40 MG Oral Tablet Atorvastatin Calcium 40 MG Atorvastatin Calcium 40 MG 03/26/2019 12:00:00 AM EST 1.0 {tablet} activ e Atorvastatin Calcium 40 MG eCW1 ([facility]) atorvastatin 40 MG Oral Tablet Atorvastatin Calcium 40 MG Atorvastatin Calcium 40 MG 03/26/2019 12:00:00 AM EST 1.0 {tablet} activ e Atorvastatin Calcium 40 MG eCW1 ([facility]) atorvastatin 40 MG Oral Tablet Atorvastatin Calcium 40 MG Atorvastatin Calcium 40 MG 03/26/2019 12:00:00 AM EST 1.0 {tablet} activ e Atorvastatin Calcium 40 MG eCW1 ([facility]) atorvastatin 40 MG Oral Tablet Atorvastatin Calcium 40 MG Atorvastatin Calcium 40 MG 03/26/2019 12:00:00 AM EST 1.0 {tablet} activ e Atorvastatin Calcium 40 MG eCW1 ([facility]) atorvastatin 40 MG Oral Tablet Atorvastatin Calcium 40 MG Atorvastatin Calcium 40 MG 03/26/2019 12:00:00 AM EST 1.0 {tablet} activ e Atorvastatin Calcium 40 MG eCW1 ([facility]) atorvastatin 40 MG Oral Tablet Atorvastatin Calcium 40 MG Atorvastatin Calcium 40 MG 03/26/2019 12:00:00 AM EST 1.0 {tablet} activ e Atorvastatin Calcium 40 MG eCW1 ([facility]) atorvastatin 40 MG Oral Tablet Atorvastatin Calcium 40 MG Atorvastatin Calcium 40 MG 03/26/2019 12:00:00 AM EST 1.0 {tablet} activ e Atorvastatin Calcium 40 MG eCW1 ([facility]) atorvastatin 40 MG Oral Tablet Atorvastatin Calcium 40 MG Atorvastatin Calcium 40 MG 03/26/2019 12:00:00 AM EST 1.0 {tablet} activ e Atorvastatin Calcium 40 MG eCW1 ([facility]) atorvastatin 40 MG Oral Tablet Atorvastatin Calcium 40 MG Atorvastatin Calcium 40 MG 03/26/2019 12:00:00 AM EST active 1 tablet eCW1 ([facility]) atorvastatin 40 MG Oral Tablet Atorvastatin Calcium 40 MG Atorvastatin Calcium 40 MG 03/26/2019 12:00:00 AM EST 1.0 {tablet} activ e Atorvastatin Calcium 40 MG eCW1 ([facility]) atorvastatin 40 MG Oral Tablet Atorvastatin Calcium 40 MG Atorvastatin Calcium 40 MG 03/26/2019 12:00:00 AM EST 1.0 {tablet} activ e Atorvastatin Calcium 40 MG eCW1 ([facility]) atorvastatin 40 MG Oral Tablet Atorvastatin Calcium 40 MG Atorvastatin Calcium 40 MG 03/26/2019 12:00:00 AM EST 1.0 {tablet} activ e Atorvastatin Calcium 40 MG eCW1 ([facility]) atorvastatin 40 MG Oral Tablet Atorvastatin Calcium 40 MG Atorvastatin Calcium 40 MG 03/26/2019 12:00:00 AM EST 1.0 {tablet} activ e Atorvastatin Calcium 40 MG eCW1 ([facility]) atorvastatin 40 MG Oral Tablet Atorvastatin Calcium 40 MG Atorvastatin Calcium 40 MG 03/26/2019 12:00:00 AM EST 1.0 {tablet} activ e Atorvastatin Calcium 40 MG eCW1 ([facility]) atorvastatin 40 MG Oral Tablet Atorvastatin Calcium 40 MG Atorvastatin Calcium 40 MG 03/26/2019 12:00:00 AM EST 1.0 {tablet} activ e Atorvastatin Calcium 40 MG eCW1 ([facility]) 10-325 mg 03/26/2019 12:00:00 AM EST tablet 120 TAKE 1 TABLET BY MOUTH EVERY 6 HOURS NEEDED MAXIMUM DAILY DOSE = 4 TABLETS TAKE 1 TABLET BY MOUTH EVERY 6 HOURS NEEDED MAXIMUM DAILY DOSE = 4 TABLETS SOLD: 03/26/2019 [facility] 1,250 mcg (50,000 unit) 03/26/2019 12:00:00 AM EST capsule 4 TAKE 1 CAPSULE BY MOUTH ONCE A WEEK ON MONDAYS TAKE 1 CAPSULE BY MOUTH ONCE A WEEK ON MONDAYS SOLD: 03/27/2019 [facility] atorvastatin 40 MG Oral Tablet Atorvastatin Calcium 40 MG Atorvastatin Calcium 40 MG 03/26/2019 12:00:00 AM EST 1.0 {tablet} activ e Atorvastatin Calcium 40 MG eCW1 ([facility]) atorvastatin 40 MG Oral Tablet Atorvastatin Calcium 40 MG Atorvastatin Calcium 40 MG 03/26/2019 12:00:00 AM EST 1.0 {tablet} activ e Atorvastatin Calcium 40 MG eCW1 ([facility]) atorvastatin 40 MG Oral Tablet Atorvastatin Calcium 40 MG Atorvastatin Calcium 40 MG 03/26/2019 12:00:00 AM EST 1.0 {tablet} activ e Atorvastatin Calcium 40 MG eCW1 ([facility]) atorvastatin 40 MG Oral Tablet Atorvastatin Calcium 40 MG Atorvastatin Calcium 40 MG 03/26/2019 12:00:00 AM EST 1.0 {tablet} activ e Atorvastatin Calcium 40 MG eCW1 ([facility]) atorvastatin 40 MG Oral Tablet Atorvastatin Calcium 40 MG Atorvastatin Calcium 40 MG 03/26/2019 12:00:00 AM EST 1.0 {tablet} activ e Atorvastatin Calcium 40 MG eCW1 ([facility]) atorvastatin 40 MG Oral Tablet Atorvastatin Calcium 40 MG Atorvastatin Calcium 40 MG 03/26/2019 12:00:00 AM EST active 1 tablet eCW1 ([facility]) atorvastatin 40 MG Oral Tablet Atorvastatin Calcium 40 MG Atorvastatin Calcium 40 MG 03/26/2019 12:00:00 AM EST 1.0 {tablet} activ e Atorvastatin Calcium 40 MG eCW1 ([facility]) atorvastatin 40 MG Oral Tablet Atorvastatin Calcium 40 MG Atorvastatin Calcium 40 MG 03/26/2019 12:00:00 AM EST 1.0 {tablet} activ e Atorvastatin Calcium 40 MG eCW1 ([facility]) atorvastatin 40 MG Oral Tablet Atorvastatin Calcium 40 MG Atorvastatin Calcium 40 MG 03/26/2019 12:00:00 AM EST 1.0 {tablet} activ e Atorvastatin Calcium 40 MG eCW1 ([facility]) atorvastatin 40 MG Oral Tablet Atorvastatin Calcium 40 MG Atorvastatin Calcium 40 MG 03/26/2019 12:00:00 AM EST 1.0 {tablet} activ e Atorvastatin Calcium 40 MG eCW1 ([facility]) atorvastatin 40 MG Oral Tablet Atorvastatin Calcium 40 MG Atorvastatin Calcium 40 MG 03/26/2019 12:00:00 AM EST 1.0 {tablet} activ e Atorvastatin Calcium 40 MG eCW1 ([facility]) Nystatin 414457 UNT/ML Topical Cream Nystatin 889015 U NIT/GM Nystatin [id number] UNIT/GM 03/26/2019 12:00:00 AM EST active 1 application 2g eCW1 ([facility]) atorvastatin 40 MG Oral Tablet Atorvastatin Calcium 40 MG Atorvastatin Calcium 40 MG 03/26/2019 12:00:00 AM EST 1.0 {tablet} activ e Atorvastatin Calcium 40 MG eCW1 ([facility]) atorvastatin 40 MG Oral Tablet Atorvastatin Calcium 40 MG Atorvastatin Calcium 40 MG 03/26/2019 12:00:00 AM EST 1.0 {tablet} activ e Atorvastatin Calcium 40 MG eCW1 ([facility]) atorvastatin 40 MG Oral Tablet Atorvastatin Calcium 40 MG Atorvastatin Calcium 40 MG 03/26/2019 12:00:00 AM EST 1.0 {tablet} activ e Atorvastatin Calcium 40 MG eCW1 ([facility]) atorvastatin 40 MG Oral Tablet Atorvastatin Calcium 40 MG Atorvastatin Calcium 40 MG 03/26/2019 12:00:00 AM EST 1.0 {tablet} activ e Atorvastatin Calcium 40 MG eCW1 ([facility]) atorvastatin 40 MG Oral Tablet Atorvastatin Calcium 40 MG Atorvastatin Calcium 40 MG 03/26/2019 12:00:00 AM EST 1.0 {tablet} activ e Atorvastatin Calcium 40 MG eCW1 ([facility]) atorvastatin 40 MG Oral Tablet Atorvastatin Calcium 40 MG Atorvastatin Calcium 40 MG 03/26/2019 12:00:00 AM EST 1.0 {tablet} activ e Atorvastatin Calcium 40 MG eCW1 ([facility]) atorvastatin 40 MG Oral Tablet Atorvastatin Calcium 40 MG Atorvastatin Calcium 40 MG 03/26/2019 12:00:00 AM EST 1.0 {tablet} activ e Atorvastatin Calcium 40 MG eCW1 ([facility]) atorvastatin 40 MG Oral Tablet Atorvastatin Calcium 40 MG Atorvastatin Calcium 40 MG 03/26/2019 12:00:00 AM EST 1.0 {tablet} activ e Atorvastatin Calcium 40 MG eCW1 ([facility]) atorvastatin 40 MG Oral Tablet Atorvastatin Calcium 40 MG Atorvastatin Calcium 40 MG 03/26/2019 12:00:00 AM EST 1.0 {tablet} activ e Atorvastatin Calcium 40 MG eCW1 ([facility]) atorvastatin 40 MG Oral Tablet Atorvastatin Calcium 40 MG Atorvastatin Calcium 40 MG 03/26/2019 12:00:00 AM EST 1.0 {tablet} activ e Atorvastatin Calcium 40 MG eCW1 ([facility]) atorvastatin 40 MG Oral Tablet Atorvastatin Calcium 40 MG Atorvastatin Calcium 40 MG 03/26/2019 12:00:00 AM EST 1.0 {tablet} activ e Atorvastatin Calcium 40 MG eCW1 ([facility]) atorvastatin 40 MG Oral Tablet Atorvastatin Calcium 40 MG Atorvastatin Calcium 40 MG 03/26/2019 12:00:00 AM EST active 1 tablet eCW1 ([facility]) atorvastatin 40 MG Oral Tablet Atorvastatin Calcium 40 MG Atorvastatin Calcium 40 MG 03/26/2019 12:00:00 AM EST 1.0 {tablet} activ e Atorvastatin Calcium 40 MG eCW1 ([facility]) atorvastatin 40 MG Oral Tablet Atorvastatin Calcium 40 MG Atorvastatin Calcium 40 MG 03/26/2019 12:00:00 AM EST 1.0 {tablet} activ e Atorvastatin Calcium 40 MG eCW1 ([facility]) atorvastatin 40 MG Oral Tablet Atorvastatin Calcium 40 MG Atorvastatin Calcium 40 MG 03/26/2019 12:00:00 AM EST 1.0 {tablet} activ e Atorvastatin Calcium 40 MG eCW1 ([facility]) atorvastatin 40 MG Oral Tablet Atorvastatin Calcium 40 MG Atorvastatin Calcium 40 MG 03/26/2019 12:00:00 AM EST 1.0 {tablet} activ e Atorvastatin Calcium 40 MG eCW1 ([facility]) atorvastatin 40 MG Oral Tablet Atorvastatin Calcium 40 MG Atorvastatin Calcium 40 MG 03/26/2019 12:00:00 AM EST 1.0 {tablet} activ e Atorvastatin Calcium 40 MG eCW1 ([facility]) atorvastatin 40 MG Oral Tablet Atorvastatin Calcium 40 MG Atorvastatin Calcium 40 MG 03/26/2019 12:00:00 AM EST 1.0 {tablet} activ e Atorvastatin Calcium 40 MG eCW1 ([facility]) atorvastatin 40 MG Oral Tablet Atorvastatin Calcium 40 MG Atorvastatin Calcium 40 MG 03/26/2019 12:00:00 AM EST 1.0 {tablet} activ e Atorvastatin Calcium 40 MG eCW1 ([facility]) atorvastatin 40 MG Oral Tablet Atorvastatin Calcium 40 MG Atorvastatin Calcium 40 MG 03/26/2019 12:00:00 AM EST 1.0 {tablet} activ e Atorvastatin Calcium 40 MG eCW1 ([facility]) atorvastatin 40 MG Oral Tablet Atorvastatin Calcium 40 MG Atorvastatin Calcium 40 MG 03/26/2019 12:00:00 AM EST 1.0 {tablet} activ e Atorvastatin Calcium 40 MG eCW1 ([facility]) atorvastatin 40 MG Oral Tablet Atorvastatin Calcium 40 MG Atorvastatin Calcium 40 MG 03/26/2019 12:00:00 AM EST 1.0 {tablet} activ e Atorvastatin Calcium 40 MG eCW1 ([facility]) atorvastatin 40 MG Oral Tablet Atorvastatin Calcium 40 MG Atorvastatin Calcium 40 MG 03/26/2019 12:00:00 AM EST 1.0 {tablet} activ e Atorvastatin Calcium 40 MG eCW1 ([facility]) atorvastatin 40 MG Oral Tablet Atorvastatin Calcium 40 MG Atorvastatin Calcium 40 MG 03/26/2019 12:00:00 AM EST 1.0 {tablet} activ e Atorvastatin Calcium 40 MG eCW1 ([facility]) atorvastatin 40 MG Oral Tablet Atorvastatin Calcium 40 MG Atorvastatin Calcium 40 MG 03/26/2019 12:00:00 AM EST 1.0 {tablet} activ e Atorvastatin Calcium 40 MG eCW1 ([facility]) Nystatin 907726 UNT/ML Topical Cream Nystatin 733125 U NIT/GM Nystatin 334050 UNIT/GM 03/26/2019 12:00:00 AM EST active 1 application eCW1 ([facility]) atorvastatin 40 MG Oral Tablet Atorvastatin Calcium 40 MG Atorvastatin Calcium 40 MG 03/26/2019 12:00:00 AM EST 1.0 {tablet} activ e Atorvastatin Calcium 40 MG eCW1 ([facility]) atorvastatin 40 MG Oral Tablet Atorvastatin Calcium 40 MG Atorvastatin Calcium 40 MG 03/26/2019 12:00:00 AM EST 1.0 {tablet} activ e Atorvastatin Calcium 40 MG eCW1 ([facility]) atorvastatin 40 MG Oral Tablet Atorvastatin Calcium 40 MG Atorvastatin Calcium 40 MG 03/26/2019 12:00:00 AM EST active 1 tablet eCW1 ([facility]) atorvastatin 40 MG Oral Tablet Atorvastatin Calcium 40 MG Atorvastatin Calcium 40 MG 03/26/2019 12:00:00 AM EST 1.0 {tablet} activ e Atorvastatin Calcium 40 MG eCW1 ([facility]) Acetaminophen 325 MG / Oxycodone Hydroch loride 10 MG Oral Tablet [Percocet] Percocet 10-325 MG Percocet 10-325 MG 03/25/2019 12:00:00 AM EST active 1 tablet as needed eCW1 ([facility]) Morphine Sulfate 15 MG Extended Release Oral Tablet Mo rphine Sulfate ER 15 MG Morphine Sulfate ER 15 MG 03/10/2019 12:00:00 AM EST active 1 to 2 as directed eCW1 ([facility]) Morphine Sulfate 15 MG Extended Release Oral Tablet Mo rphine Sulfate ER 15 MG Morphine Sulfate ER 15 MG 03/10/2019 12:00:00 AM EST active 1 to 2 as directed eCW1 ([facility]) Morphine Sulfate 15 MG Extended Release Oral Tablet Mo rphine Sulfate ER 15 MG Morphine Sulfate ER 15 MG 03/10/2019 12:00:00 AM EST active 1 to 2 as directed eCW1 ([facility]) 15 mg 03/10/2019 12:00:00 AM EST tablet extended release 90 TAKE 1 TABLET BY MOUTH IN THE MORNING AND 2 AT BEDTIME MAXIMUM DAILY DOSE = 3 TAKE 1 TABLET BY MOUTH IN THE MORNING AND 2 AT BEDTIME MAXIMUM DAILY DOSE = 3 SOLD: 03/13/2019 [facility] Morphine Sulfate 15 MG Extended Release Oral Tablet Mo rphine Sulfate ER 15 MG Morphine Sulfate ER 15 MG 03/10/2019 12:00:00 AM EST active 1 to 2 as directed eCW1 ([facility]) Morphine Sulfate 15 MG Extended Release Oral Tablet Mo rphine Sulfate ER 15 MG Morphine Sulfate ER 15 MG 03/10/2019 12:00:00 AM EST active 1 to 2 as directed eCW1 ([facility]) 5 mg 03/05/2019 12:00:00 AM EST tablet 60 TAKE ONE TABLET BY MOUTH EVERY 12 HOURS NEEDED FOR ANXIETY MAXIMUM DAILY DOSE = 2 TABLETS TAKE ONE TABLET BY MOUTH EVERY 12 HOURS NEEDED FOR ANXIETY MAXIMUM DAILY DOSE = 2 TABLETS SOLD: 03/05/2019 [facility] Diazepam 5 MG Oral Tablet diazePAM 5 MG Oral Tablet (V ALIUM) diazePAM 5 MG Oral Tablet (VALIUM) 03/05/2019 12:00:00 AM EST 5 mg Oral ac tive Take 1 tablet by mouth every 12 (twelve) hours as needed for Anxiety, Max Daily Dose: [address] [facility] 300 mg 02/24/2019 12:00:00 AM EST capsule 60 TAKE ONE CAPSULE BY MOUTH TWICE A DAY MAXIMUM DAILY DOSE = 2 CAPSULES TAKE ONE CAPSULE BY MOUTH TWICE A DAY MAXIMUM DAILY DOSE = 2 CAPSULES SOLD: 02/25/2019 [facility] 300 mg 02/24/2019 12:00:00 AM EST [...] active 1 tablet as needed eCW1 ([facility]) Acetaminophen 325 MG / Oxycodone Hydroch loride 10 MG Oral Tablet [Percocet] Percocet 10-325 MG Percocet 10-325 MG 02/17/2019 12:00:00 AM EST active 1 tablet as needed eCW1 ([facility]) Acetaminophen 325 MG / Oxycodone Hydroch loride 10 MG Oral Tablet [Percocet] Percocet 10-325 MG Percocet 10-325 MG 02/17/2019 12:00:00 AM EST active 1 tablet as needed eCW1 ([facility]) Acetaminophen 325 MG / Oxycodone Hydroch loride 10 MG Oral Tablet [Percocet] Percocet 10-325 MG Percocet 10-325 MG 02/17/2019 12:00:00 AM EST active 1 tablet as needed eCW1 ([facility]) Acetaminophen 325 MG / Oxycodone Hydroch loride 10 MG Oral Tablet [Percocet] Percocet 10-325 MG Percocet 10-325 MG 02/17/2019 12:00:00 AM EST active 1 tablet as needed eCW1 ([facility]) Acetaminophen 325 MG / Oxycodone Hydroch loride 10 MG Oral Tablet [Percocet] Percocet 10-325 MG Percocet 10-325 MG 02/17/2019 12:00:00 AM EST active 1 tablet as needed eCW1 ([facility]) Acetaminophen 325 MG / Oxycodone Hydroch loride 10 MG Oral Tablet [Percocet] Percocet 10-325 MG Percocet 10-325 MG 02/17/2019 12:00:00 AM EST active 1 tablet as needed eCW1 ([facility]) Percocet 10-325 MG UNK 02/17/2019 12:00:00 AM EST active 1 tablet as needed eCW1 ([facility]) Amitriptyline Hydrochloride 25 MG Oral Tablet [...] active 1 to 2 as directed eCW1 ([facility]) Morphine Sulfate 15 MG Extended Release Oral Tablet Mo rphine Sulfate ER 15 MG Morphine Sulfate ER 15 MG 02/12/2019 12:00:00 AM EST active 1 to 2 as directed eCW1 ([facility]) Morphine Sulfate ER 15 MG UNK 02/12/2019 12:00:00 AM EST active 1 to 2 as directed eCW1 ([facility]) duloxetine 30 MG Delayed Release Oral Ca psule DULoxetine HCl 30 MG Oral Capsule Delayed Release Particles (CYMBALTA) DULoxetine HCl 30 MG Oral Capsule Delaye d Release Particles (CYMBALTA) 12/30/2018 12:00:[address] [facility] Carisoprodol 350 MG [...] DAILY DOSE = 3 TABLETS SOLD: 04/04/2019 [facility] Losartan Potassium 25 MG Oral Tablet losartan (COZAAR) 25 MG tablet losartan (COZAAR) 25 MG tablet 05/14/2018 12:00:00 AM EDT 25 mg Oral aborted Take 25 mg by mouth daily [facility] Propranolol Hydrochloride 20 MG Oral Tablet propranolo l (INDERAL) 20 MG tablet propranolol (INDERAL) 20 MG tablet 01/13/2018 12:00:00 AM EST aborted TAKE ONE TABLET BY MOUTH EVERY DAY ON EM PTY STOMACH [facility] Oxycodone Hydrochloride 5 MG Oral Tablet oxyCODONE (ROXICODONE) 5 MG immediate release tablet oxyCODONE (ROXICODONE) 5 MG immediate release tablet 0 06/25/2017 12:00:00 AM EDT aborted Take 1 PO q4h prn pain, MDD = 6 [facility] Insurance Providers Payer name Policy type / Coverage type Policy ID Covered green party ID Covered green party's relationship to daly Policy Daly Plan Information MEDICARE [id number] SP [id number] MEDICARE [id number] SP [id number] EXCELLUS BC-BS PPO 306 [id number] SP [id number] EXCELLUS BC-BS PPO 306 [id number] SP [id number] MEDICARE C [id number] S [id number] [id number] [place]/307 [id number] SP [id number] [place] 302/307 [id number] SP [id number] [place]CELLUS BC-BS PPO 306 [id number] SP [id number] EXCELLUS BCBS B [id number] S [id number] TRAVELERS WC W [id number] Empl [id number] [place] 220/720 [id number] SP [id number] BCBS [employer] [id number] SP [id number] [place] P[place] 302/307 [id number] SP [id number] [place] 302/307 [id number] SP [id number] EXCELLUS H [id number] Self [id number] 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 [id number] SP [id number] TRAVELERS-WC WCB# [id number] SP WCB # [id number] [place] P[place] 302/307 [id number] SP [id number] 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 [id number] SP [id number] EXCELLUS BCBS B [id number] S [id number] 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 WCB# [id number] WCB# [id number] 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 [id number] SP [id number] TRAVELERS-WC WCB# [id number] SP WCB # [id number] 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 [id number] SP [id number] 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 [id number] SP [id number] OTHER WORKERS COMPENSATI O [id number] S WCB#[id number] TRAVELERS WC W [id number] Empl [id number] ANSI-Commercial [id number] elnja608-[id number]-[id number] ANSI-Not a Secondary Insurance [id number]-rlx2-[id number] ANSI-Not a Secondary Insurance [id number]-r524c [id number]-an16-7298-gt6n-[id number] ANSI-Commercial [id number]-[id number]-[id number]-a60i-6825-[id number] ANSI-Not a Secondary Insurance [id number]-19s9-r4mx-[id number] [id number] [id number]-9g7t-58y8-a4fz-q306ag9k1p6c ANSI-Commercial [id number]-[id number] p5zpsw34-8325-57g6-u747-45597127wuzv ANSI-Commercial [id number]-2m9j-0x3j-[id number] 0f54a37r-4s6q-5l7e-[id number] ANSI-Not a Secondary Insurance [id number] [id number] [id number]-[id number] 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 B# [id number] SP B# [id number] ANSI-Commercial [id number]-clwq-[id number] 9116g7f1-3b57-9532-lbrk-z35bu3x3189z ANSI-Not a Secondary Insurance [id number]-x1g5-y20pp 6t19rlq 1be04rz2-91q2-933t-e8k7-i47gh3m29dhb ANSI-Commercial t389xr95-2ui4-278z-wu17-636d10v48wfg q693po56-1wn2-901a-sl92-006g06y41cwv ANSI-Not a Secondary Insurance [id number]-[id number] 7zj6kn5 k790m990-012b-161e-6537-27h965fz6ha1 ANSI-Not a Secondary Insurance [id number]-o096-41z9-[id number] 4aov9w9 93n15t6t-w584-24q2-w411-006899vkk5z4 ANSI-Commercial [id number]-d957-7v302g47427g [id number]-a151-6l751l56656i ANSI-Commercial q99wtcz5-9b7z-7ke3-y681-512pspu5f94q v44ockx9-9k8k-4rz9-m426-640oyaf9l39b ANSI-Not a Secondary Insurance sm88e5m5-7v50-3050-4685-a490x 09s9qg5 nn50g4p6-7m58-1846-4141-k615e29p1xr6 ANSI-Commercial 79m27mx8-2v44-6tvx-6749-t0tmvp31bx01 27t11lp8-6g63-5oci-6341-s1lela87sj77 ANSI-Not a Secondary Insurance 1h55s876-79d0-14ce-ca71-bl8p5 1444m1u 7c97y199-81a5-28cu-yp07-ca1p66228e2i ANSI-Commercial 2a600g40-g35x-67t8-0wh8-74zk5v14859k 9e339n44-k49r-36b9-9ge6-98fs0e82601i ANSI-Not a Secondary Insurance 80f9ymd8-22c9-725l-o516-2d5c9 mrc4z6q 18f7pzn1-95r7-922v-v341-3j9f9wml9d6j ANSI-Not a Secondary Insurance 079nd871-m670-394l-i19v-1g27b zzzt0w3 204eq989-n352-550n-k54t-9w27ygrtc3p1 ANSI-Commercial 8w6110qv-mne3-0436-kf66-l0y3z6mj2431 9t4576ow-gwg2-5869-ac27-o2o0t5no4029 EXCELL BC-BS PPO 306 [id number] SP [id number] ANSI-Not a Secondary Insurance [id number]-sny2-724m-zy21-bom44 20d448l 273201ke-qob9-270l-qc07-zes3831c773h ANSI-Commercial 566bef42-pcw8-5na1-8yfj-87w8e8647jek 773bir06-ycl2-1hx5-8mqb-18n1f6686ruy ANSI-Not a Secondary Insurance b27f04j9-3z20-62q9-1kz5-h95a8 t4oi8g4 u48f85b8-8e96-77s4-4fj2-t38d6o2oo0s9 ANSI-Commercial 52124qnn-6522-3da8-7hi4-7lz0o8521c17 27010qvp-8761-4lr8-5tn7-2zl2d0246t82 ANSI-Commercial 5x53e4n9-701y-6368-g4x5-n70p22q20e4r 2l76b1i9-009x-8588-q4d5-v33h43g86f6h ANSI-Not a Secondary Insurance og8p2g8g-3592-2k1e-44t0-7oavc 38c0733 bx4h5f6j-6238-1e5x-98k1-9jlov64q4535 ANSI-Commercial x4i65u19-u9m1-796p-ik8t-61zo522676h4 v9i18r37-a6i4-217f-vh1i-03my419175k4 ANSI-Not a Secondary Insurance 66n2iwy5-jf35-2649-g975-17i7s 8lw68p3 75a8edu3-zp75-1410-p363-09g5u4wi39z5 ANSI-Not a Secondary Insurance [id number]-o219-37e7-2xv7-tj0u1 v78w799 y0275806-f734-56b3-8wx6-eq7q8g09g458 ANSI-Commercial 3pn0j3v6-182o-6a87-a5av-15e3f3375t54 4vq6t3u2-756q-3b66-h3zl-34y2m8675l04 ANSI-Not a Secondary Insurance 9dagv40c-e5m4-221w-g3k4-xmf3h 946k6lr 6znrs06b-l4t6-084n-c0b5-nwi8r279q8ub ANSI-Commercial 84il9tna-98w4-7889-5485-j92vgu1kn855 27xe7fzs-54m8-5062-5423-t58kat7ln226 ANSI-Not a Secondary Insurance f30q96jx-v90x-7vcd-9s96-z6269 b5o2nu9 p83e80fs-h46a-6com-6y94-x9682i8k5ri6 ANSI-Commercial 5s26w2bn-6g74-5414-k598-7c3982e2ui09 4l04t7dd-3m91-1405-r336-7u1088y6in52 ANSI-Commercial w99zi473-7t2b-870p-i6w4-0h603t697f35 s90pc746-1q9v-069d-o6t5-2w077b926e75 ANSI-Not a Secondary Insurance 9eckux9r-f443-465o-z1r2-oj63u 1t6y0t3 5gqcue9o-v541-135a-h2s3-md88k7b7z2k9 ANSI-Not a Secondary Insurance ra3oj882-j7t4-8715-t3y5-48993 so1v54m eh1kh346-g7i3-2098-k1w8-51036fj8d96g ANSI-Commercial 9076a0e1-74rg-4579-7j6a-31by420ye4q3 7667o8h3-78dd-2927-8x9r-69tg578as4p3 ANSI-Commercial 921f4l31-ql24-42p5-kv1w-4vc5wsuq3gt8 739w4e33-wg92-78p8-pe9q-2rc1beza1kd3 ANSI-Not a Secondary Insurance 390335c2-o9x7-4crk-w95m-kk2m8 0062m6u 171297v8-u4s4-3ztc-m37b-eg8e13099f7v ANSI-Commercial 4k5r7aa7-257e-9j01-0908-333t743z08n8 0r3k3wy9-257r-2r79-9349-110i726l98f8 ANSI-Not a Secondary Insurance v861816q-9p57-9v32-76o2-9kdx7 5s35498 m840351k-5i29-5a36-16d5-2kij60z72741 ANSI-Not a Secondary Insurance ih1t0rad-0t9v-20uh-s4d1-f37w6 xd411u8 qa0x2dve-6q2b-47da-h2g7-q01x7dg648e9 ANSI-Commercial nbsze711-g2c6-75c3-5tth-j38u110x49t9 hxtec808-s6l5-56a8-1pvd-t25d118t63v8 ANSI-Commercial 244070n3-56l0-0wf5-8169-787y14iv2q3b 884123z0-33t1-8fp9-2719-991h33jl2b2o ANSI-Not a Secondary Insurance 280z4b0x-1d42-3596-728e-u404i ig5krc5 367v7h6w-2s10-3148-443n-r085zjv2hty0 ANSI-Not a Secondary Insurance 974p921u-24ap-1jcl-1e0z-4k948 o6x31g6 633n036h-71tc-9saq-4y0y-2z225e4p57z6 ANSI-Commercial t4vn8051-10l2-36k0-35g9-1y94698wcu92 r5pt5729-75f6-70s6-20a8-3t53979mbc49 ANSI-Commercial t609156l-19po-4258-0q45-41uu4w1o46jf s799556p-35nr-4367-7z46-60dj9b2w97wt ANSI-Not a Secondary Insurance 6e8g7968-w2e5-7id6-e81b-6lt02 7lk7j39 9q2w4876-d8u8-3ms4-g60p-0ty968do9m04 ANSI-Commercial 611p01u2-5roe-49r7-u27d-5iih8813e367 712e65b1-6wyx-05s9-l75j-1mvm2945e888 ANSI-Not a Secondary Insurance s5u8692v-6rb5-842a-2va0-07nug 8d17mgt n1z9485r-3bi5-349c-6bw4-91bcz1r91ctj ANSI-Commercial 0yew668q-a301-62p0-j043-28i582737984 7ips619k-t886-33n2-u638-67q922371203 ANSI-Not a Secondary Insurance 1m44fa26-z426-9736-5332-829n0 615t1e7 6d11se72-f185-7358-3947-397d9960j7w4 ANSI-Commercial 68pf2qp9-2d97-1xw8-2243-9ldr4p9754qj 52ib4bx1-7r52-9lc8-1123-6fpe2m4253vh ANSI-Not a Secondary Insurance 51vr4283-43k1-86xv-a247-j466l i3615z0 45br0086-08g6-20rm-c280-u664pi5818q2 ANSI-Commercial k3f82684-0rn1-4211-7g52-8zs67692p92b u0o30791-5jq6-7461-6m24-7ob68967g28v ANSI-Not a Secondary Insurance q636j724-cb56-4mdp-685j-7q266 pij3o7q g738i720-di09-3hni-289o-1l223gdv9f0j ANSI-Commercial 7vf5bn41-t3k1-95zn-g35s-64w6037wi5pl 7ae4my17-f1s4-72kn-d12v-30i7011vm5gb ANSI-Not a Secondary Insurance 6i47l7bz-8u51-5n55-56y0-d14f3 2cuao46 1h19f0zx-1i00-8r65-51g8-i24x41qaxb49 ANSI-Not a Secondary Insurance 7zova7h4-8u99-6ep0-qh3d-758z7 208i4w4 6jzfg4q1-8p93-5ib4-uo2j-479w0361j7t7 ANSI-Commercial l098y5eu-86d0-885r-8005-q2jt9m0ha4a6 q115e5sw-16k1-427d-9491-k6hv3k1nh4o4 ANSI-Commercial k1o0i625-6799-01q8-48yr-7k74g7up571k w0l1r989-7326-24t0-77bb-7z26f6ut568j ANSI-Not a Secondary Insurance 4387d321-8050-1k73-4vgk-y8d52 k3121ke 1466q445-4759-4k33-1pzf-x5p69a9250ua ANSI-Commercial 06181025-d431-0187-jg70-wzo7h8247621 90619944-k213-7295-am86-bhj6m0048173 ANSI-Not a Secondary Insurance 02r800rk-r182-50sw-g0wg-8na68 1feaaac 72m934ib-y226-33bg-y2zs-0fv873wzdhha ANSI-Not a Secondary Insurance 28s15k04-y5mu-7242-4cl9-6550e 72472d5 39g91s13-y9cv-2923-1aj9-8508g71861h7 ANSI-Commercial 16i3b7n5-691o-9e15-71qg-463kfi5uq648 10q5t2t2-010z-4b56-76jw-305ujk3nt439 ANSI-Not a Secondary Insurance 46wl3ctb-jo99-3613-kr5w-9h4m5 3p9a88l 29vw6sel-nw80-6743-cz6l-0d8o17k0n60r ANSI-Commercial 0i5e2st6-86o5-24ri-zp58-763252jt5w0b 7t3b0nt6-60z5-75ew-cy75-630229gq9y7r ANSI-Commercial woj96574-yn21-7t79-9535-8f51rygkqm29 kpg84295-ry97-7t40-8803-0f79kxnure25 ANSI-Not a Secondary Insurance v36f1my1-8s0m-92o6-k3ku-wka32 711872m z51d1dg1-8o6c-27g8-r1ye-xtc10551349t ANSI-Not a Secondary Insurance bj0004fh-05f7-4q18-1thq-55996 2346815 zw3019pm-66y9-5i93-5zpb-662964049867 ANSI-Commercial j8l0x330-8n39-7748-u862-9k25s4b315ok s5h3p389-7c51-6761-v362-1a49n6y714yp ANSI-Not a Secondary Insurance 9n3hq2v6-5850-6502-877m-643sg w77408x 8a1zn0t6-0878-7541-045i-783rwe03595u ANSI-Commercial 237a048i-4282-3937-041s-75e653omc0c0 598b326u-0261-6016-760c-56m540tgb4b3 ANSI-Not a Secondary Insurance 95409869-i13y-9aa2-xr6b-8s21e 4h61cx1 40347867-u31a-1nm7-rk1y-4c47r0l93em4 ANSI-Commercial q499p358-f3q5-4vf1-82e3-3mg71h674ay3 z726n956-a3s0-7cj3-12y3-3ho42a854vz3 ANSI-Not a Secondary Insurance a59s7c7c-23d6-547g-o1l2-66393 h91du7d d91s3c9c-23t2-960i-x6i5-83717x91om1i ANSI-Commercial 8v2xb3e6-e8b6-3773-ul71-vz670336z8cl 9z1xb2k0-n2y2-3600-hd23-ul265458x2sn ANSI-Commercial 4ztg539j-c1h4-69wd-xz13-h7epxoir9153 0wvu720q-b9f3-97lc-uc05-l7iaxryi9735 ANSI-Not a Secondary Insurance 97236467-t726-2759-cgc4-6w13v yp670e9 03035467-d111-0319-kke9-6b03iwe146p3 ANSI-Not a Secondary Insurance 9511ktu1-atki-90w8-3669-u4ak0 9c639x4 3896cau5-pwwu-92e4-9428-r8oi15r930e8 ANSI-Commercial e0uv30y7-151t-61r7-p2e4-849456938200 v3mi13d6-468t-04f4-k0t3-834828533361 ANSI-Not a Secondary Insurance 9603jik5-2jia-25t8-6l3s-9a7s9 21t9421 5916yqo4-4nce-61z6-8b7b-3y5u954u6914 ANSI-Commercial fa1jgsf7-9rwi-66yy-emdw-220t8dx1cc96 sy7crtz3-5uks-93hl-rall-602y3yr8pp14 ANSI-Commercial q73v5253-17c5-595l-40zz-63k2jb2g3506 f48k3979-23a5-167h-50rd-50t1rm2b2416 ANSI-Not a Secondary Insurance o39e3s3d-sudd-60rf-3g8y-w2dr5 9e6z643 h83n6z0i-mwrx-64si-7h1c-w5ld02d6x458 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 O [id number] O [id number] ANSI-Not a Secondary Insurance 58pq0008-72y2-2d0h-c8m4-9jss8 w138120 86qf0419-72i9-7u0g-o6m9-5gmk8q896091 ANSI-Commercial tuq3p867-aroi-7g52-872a-730706697bd2 lil8v567-heag-4u21-387m-975888965tc3 ANSI-Not a Secondary Insurance 03u4tf1w-5v38-102k-5vs0-8mr9c 4pnc596 96d3oj8n-7e52-416s-3lo2-1gv7i3vuc356 ANSI-Commercial 294eu3g7-o483-6629-657l-84967v0cfj62 971kl8x0-k189-2590-905u-99006e1bnk81 ANSI-Commercial k946p480-n0gd-58g8-q93a-h6a44586xhb6 q524m127-a5gf-96z9-g07w-p6j69159bue9 ANSI-Not a Secondary Insurance oo2s2cw5-b018-0715-6nc1-68w50 19p7idz zn0n0nj1-x098-8200-6ok0-15j1191d2bmz ANSI-Commercial x802i47w-7534-9r82-r5m0-6xd6va2628b8 l012w82p-8192-6j03-c3k0-5kr3ns8607u9 ANSI-Not a Secondary Insurance 41p5al6z-r7x1-773h-7k2m-48ph0 1126859 71l0vj0w-z3b7-319x-2u9n-88ij69985610 ANSI-Commercial 659wx872-9540-5711-wf7m-o32712e0bn48 886kq178-3448-3348-xl1i-k73423t5nj34 ANSI-Not a Secondary Insurance 10287lef-5qzv-424c-40q0-3b64c noq0td5 41948tae-3flw-288k-05b1-0p07hxim5bb7 ANSI-Commercial 7x73r21w-p23r-1ig9-596w-7v391t2z0825 9s47g02d-w80x-6os7-868k-6n446h6v7381 ANSI-Not a Secondary Insurance 750h2019-7n78-14gg-u1va-64t83 489ebec 149b4008-9h07-82lt-t0gz-57v14128ybkl ANSI-Not a Secondary Insurance 70553196-m5o9-5cp0-ms5x-0e836 e7v111j 14429229-d8h7-5hn1-dg7r-9p535y4b424b ANSI-Commercial 2wwg97ev-9pp1-471h-xh88-017486y6h7bp 6khq14do-7uf5-832n-ib51-826292o8f4fe ANSI-Not a Secondary Insurance 7c17p140-lc25-782t-0z30-69oda 4z10r1d 3q31g884-aa18-791h-5t28-29uix8h93l3e ANSI-Commercial wrw6429s-v230-44tz-7fl2-e69hlquu7d4e swa2271f-x069-74xq-6ac9-w43oquae9w9w ANSI-Commercial 09se6276-6o5y-7lqp-fs9i-m0e7k9s1w3bi 15vh1128-3p1i-9miu-vp2h-z3u6q1a9w2uf ANSI-Not a Secondary Insurance 4o0wv748-7v7p-014l-3m50-9f8r2 6b04973 5g5ok920-3n6o-262u-8l22-0q5i90r32679 ANSI-Commercial 95hu2x35-0958-7go9-1u0s-9496w48kf467 74xd1o93-6491-4dg5-3x2t-8681t59tq996 ANSI-Not a Secondary Insurance w1uj98b8-tij9-6w7v-i640-vj7rz 3qxr2rg u9ck22c9-fkv9-6n3i-o345-bv1dx3nig1zu ANSI-Commercial 3k0w33bg-7lfl-368y-pf5b-45h6921o3s0k 1r9b53xk-8jbk-209i-qv8x-66l4375n6m0l ANSI-Not a Secondary Insurance 8229800u-631o-7187-6q63-px1k9 619uc06 0441396z-213d-5257-1z92-ar2g5729yv54 ANSI-Commercial jvo80o04-3s5b-82s7-y453-xqnmbpp22t20 vkw19q87-3c3d-82o9-a994-yncqqjz09s79 ANSI-Not a Secondary Insurance 6s304mio-1p45-3lbx-e889-7i203 966b136 5r698ioq-4a38-6enh-q139-3e798812z234 ANSI-Not a Secondary Insurance 6l7nkuis-7uux-4m1r-g8m1-b79vg 8802316 9p0hrmep-3zsu-3u3q-r1k5-x08vk9414121 ANSI-Commercial 312n8d2h-198i-5e04-p03k-5681233y21w7 047a8o3z-220p-5o69-q99w-7333432y09y4 ANSI-Not a Secondary Insurance 1n0q1k2o-e206-62zw-47l6-6632o 95xmm34 4y9r6y6x-p647-16uw-42j5-7950g13ezg62 ANSI-Commercial 8535391u-q10h-4697-4ppn-8069a4ao0z8v 8096414e-t54q-3841-8yms-4048d6bg9e1c ANSI-Commercial tq0n483d-3cu1-8wa5-5c57-a6o57wg074p0 kz0h394z-2zu0-4ab5-4g26-x8j73vc572u1 ANSI-Not a Secondary Insurance 61s22df1-4n0o-4ek7-1v82-v7i4j ueba537 99b51hd7-3b2q-2xl2-9g60-d1f4xgnyn345 ANSI-Not a Secondary Insurance 0776qi17-92c3-259d-5198-0p01o c68289b 0876fs08-03e8-549g-9153-4d60vg88562z ANSI-Commercial 58u0i8s3-2148-0w06-oq82-jh60z4947500 35k5n7e3-0040-0u12-qf76-mb64e1859047 ANSI-Not a Secondary Insurance 645zd56b-43mb-7l6i-9j90-5t60b 7j7s9o6 936ys90g-29ut-3d9g-4r66-6w98k6x3w7n7 ANSI-Commercial 5w02941u-6533-0404-t003-r2u0qufb5og1 8g12931i-6492-9624-p238-r4c2eloz6or8 [employer] B [id number] S MMF [id number] ANSI-Commercial 31pph67i-6130-9824-5958-1di9jb0z1086 93kuv56j-3278-3810-5442-4hj4xe0l5010 ANSI-Not a Secondary Insurance v9328snk-2j25-3741-2vr2-c638u 1ngi49w o2839bvv-2c85-0702-2un3-l675w8thm65c ANSI-Not a Secondary Insurance 02l59030-96m8-5125-17j3-90945 j3uarw2 07d48991-60t0-8967-74i5-35335m4uksn7 ANSI-Commercial ni71f0vc-893f-93h8-62b4-y92divuzk75p qg66z5gs-276v-23y8-05c0-m11snlica85x ANSI-Not a Secondary Insurance cxa2338p-6a16-8699-s1u7-v3862 0p31xuj ogp9706u-3z47-3255-n8q3-i24564y96wbt ANSI-Commercial 697b111r-7p6i-699r-uv5a-48g16cf06lt9 702x990x-4v1y-318s-gk1b-13d35ri96gv7 ANSI-Not a Secondary Insurance n658kgsu-ko4r-009p-3z98-08d5y 3bw93t6 [id number] ANSI-Commercial [id number] ANSI-Not a Secondary Insurance [id number] ANSI-Commercial [id number] ANSI-Commercial [id number] ANSI-Not a Secondary Insurance [id number] ANSI-Not a Secondary Insurance [id number] ANSI-Commercial [id number] ANSI-Not a Secondary Insurance [id number] ANSI-Commercial [id number] ANSI-Commercial [id number] ANSI-Not a Secondary Insurance [id number] TRAVELERS- [id number] SP [id number] ANSI-Not a Secondary Insurance [id number] ANSI-Commercial [id number] ANSI-Commercial [id number] ANSI-Not a Secondary Insurance [id number] ANSI-Not a Secondary Insurance [id number] ANSI-Commercial [id number] OTHER WORKERS COMPENSATI O WCB#[id number] S [id number] ANSI-Not a Secondary Insurance [id number] ANSI-Commercial [id number] ANSI-Commercial [id number] ANSI-Not a Secondary Insurance [id number] OTHER WORKERS COMPENSATI O [id number] S WCB#[id number] TRAVELERS-WC WCB# [id number] SP WCB # [id number] 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 [id number] BS [place] Medigap Part B [id number] Self [id number] Travelers Insurance (WC) Workers Compensation [id number] Self [id number] 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 [id number] SP [id number] 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 [id number] SP [id number] [place] PPO 302/307 [id number] SP [id number] [place] 302/307 [id number] SP [id number] [place] P[place] 302/307 [id number] SP [id number] BS Of [place] [facility] Maintenance Organization [place] [place] BCBS B [id number] S VYS [id number] BCBS [place] 304/804 [id number] SP [id number] EXCELLUS H [id number] Self [id number] BLUE CROSS BLUE SHIELD-CLINIC [id number] 18 [id number] BCBS [place] 304/804 [id number] SP [id number] SELF PAY 5 UNAVAILABLE 1 UNAVAILA BLE BLUE CROSS BLUE SHIELD-O/P [id number] 18 [id number] BCBS [place] 306/8 P [id number] S [id number] Problems, Conditions, and Diagnoses Code Display Name Description Problem Type Effective Dates Data Source(s) F51.01 1014748 Primary insomnia Problem 01/28/2020 12:00:00 AM EST eCW1 ([facility]) F41.0 784566003 Panic disorder Problem 12/24/2019 12:00:00 A M EST eCW1 ([facility]) F41.9 99837097 Anxiety Problem 12/23/2019 12:00:00 AM ES T eCW1 ([facility]) 08166737 Cervical radiculopathy Cervical radiculopathy Problem 08/26/2019 12:00:00 AM EDT [facility]ENT (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, ) 00710807 Neck pain Neck pain Problem 08/26/2019 12:00:00 AM ED T [facility]ENT ([facility], ) 729698083 Essential tremor Essential tremor Problem 08/26/2019 12 :00:00 AM EDT [facility] ([facility], ) R25.1 542752784 Tremor of both hands Problem 08/25/2019 12:0 0:00 AM EDT eCW1 ([facility]) F41.9 05889963 Anxiety Problem 08/04/2019 12:00:00 AM ED T eCW1 ([facility]) M46.1 [id number] Bilateral sacroiliitis Problem 05/28/2019 12:00:00 AM EDT eCW1 ([facility]) M54.5 823806548 Low back pain Problem 05/28/2019 12:00:00 AM EDT eCW1 ([facility]) M54.5 906848754 Low back pain Problem 05/28/2019 12:00:00 AM EDT eCW1 ([facility]) M46.1 [id number] Bilateral sacroiliitis Problem 05/28/2019 12:00:00 AM EDT eCW1 ([facility]) M46.1 14126317 Sacroiliitis Problem 04/21/2019 12:00:00 AM EDT eCW1 ([facility]) E78.00 074104153 Pure hypercholesterolemia Problem 03/26/2019 12:00:00 AM EST eCW1 ([facility]) J44.9 30552272 Chronic obstructive pulmonary di sease, unspecified COPD type Problem 03/26/2019 12:00:00 AM EST eCW1 ([facility]) E78.00 963056126 Pure hypercholesterolemia Problem 03/26/2019 12:00:00 AM EST eCW1 ([facility]) J44.9 23983547 Chronic obstructive pulmonary di sease, unspecified COPD type Problem 03/26/2019 12:00:00 AM EST eCW1 ([facility]) M75.41 Impingement syndrome of right shoulder I mpingement syndrome of right shoulder Diagnosis 04/01/2019 10:41:11 AM [facility] 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, 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, right upper limb Diagnosis 04/01/2019 10:41:11 AM [facility] Surgeries/Procedures Procedure Description Date Indications Data Source(s) Immunization: Flublok Quadrivalent (18 years & older) 0.5mL IM (Influenza) 01/15/2020 12:00:00 AM EST eCW1 ([facility]) INJ TRIGGER POINT 02/12 MUSCL 06/24/2019 12:00:00 AM EDT eCW1 ([facility]) PHYSICIAN TELEPHONE EVALUATION 11-20 MIN 06/12/2019 12 :00:00 AM EDT eCW1 ([facility]) ESTABILISHED PATIENT [facility] 020 12:00:00 AM EDT eCW1 ([facility]) SURGERY CASE REQUEST OUTSIDE FACILITY ONLY SURGERY CA SE REQUEST OUTSIDE FACILITY ONLY Routine 04/01/2019 11:37 AM EST Cubital tunnel syndrome on right 04/01/2019 04:37:19 PM EST Cubital tunnel syndrome on right [facility] Cubital tunnel syndrome on right Lumbar/Sacral w/ Imaging 03/25/2019 12:00:00 AM EST eCW1 ([facility]) RADXPS IN END [id number] 03/25/2019 12:00:00 AM ES T eCW1 ([facility]) Results ID Date Data Source [id number] 02/29/2020 05:49:00 PM EST [facility] Name Value Range Interpretation Code Description Data Abbey rce(s) Supporting Document(s) SARS-CoV-2 (COVID 19) NEGATIVE - SARS-CoV-2 (COVID19) [facility] This lab was ordered by [facility] a nd reported by [facility]. ID Date Data Source Comprehensive Metabolic Profile (CMP) 12/18/2019 08:27:18 AM EST eCW1 ([facility]) Name Value Range Interpretation Code Description Data Abbey rce(s) Supporting Document(s) 92 GLUCOSE, FASTING eCW1 ([facility]) 15 BLOOD UREA NITROGEN eCW1 ([facility] hospital) 1.01 CREATININE FOR GFR eCW1 ([facility]) 102 CHLORIDE LEVEL eCW1 ([facility]) 135 SODIUM LEVEL eCW1 ([facility]) 5.2 POTASSIUM SERUM eCW1 ([facility]) > 60.0 GLOMERULAR FILTRATION RATE eCW 1 ([facility]) 28 CARBON DIOXIDE LEVEL eCW1 ([facility]) 14 ALT/SGPT eCW1 ([facility]) 9 AST/SGOT eCW1 ([facility]) 9.5 CALCIUM LEVEL eCW1 ([facility]) 7.5 TOTAL PROTEIN eCW1 ([facility]) 0.3 BILIRUBIN,TOTAL eCW1 ([facility]) 101 ALKALINE PHOSPHATASE eCW1 ([facility]) 4.3 ALBUMIN eCW1 ([facility]) 1.3 ALBUMIN/GLOBULIN RATIO eCW1 ([facility]) ID Date Data Source [id number] 12/06/2019 10:45:00 AM EDT [facility] Name Value Range Interpretation Code Description Data Abbey rce(s) Supporting Document(s) SARS coronavirus 2 RNA [facility] This lab was ordered by [facility] and reported by [facility]. ID Date Data Source [facility] FLUORO GUIDE SPINE INJECTION (PAIN) 11/12/2019 05:47:51 AM EDT eCW1 ([facility]) Name Value Range Interpretation Code Description Data Abbey rce(s) Supporting Document(s) [facility] FLUORO GUIDE SPINE IN JECTION (PAIN) eCW1 ([facility]) ID Date Data Source [id number] 11/07/2019 10:00:00 AM EDT [facility] Name Value Range Interpretation Code Description Data Abbey rce(s) Supporting Document(s) SARS coronavirus 2 RNA [facility] This lab was ordered by [facility] and reported by [facility]. ID Date Data Source [id number] 07/11/2019 11:25:00 AM EDT [facility] Name Value Range Interpretation Code Description Data Abbey rce(s) Supporting Document(s) SARS CORONAVIRUS 2 RNA [facility] This lab was ordered by [facility] and reported by [facility]. ID Date Data Source [id number] 04/04/2019 03:33:54 PM [facility] Name Value Range Interpretation Code Description Data Abbey rce(s) Supporting Document(s) Progress Note [facility] [id number] m [file] [id number] Procedure Social History Code Duration Value Status Description Data Source(s ) Smoking 02/16/2020 12:00:00 AM EST Current Smoker completed Curre nt Smoker eCW1 ([facility]) Smoking 02/16/2020 12:00:00 AM EST Current Smoker completed Curre nt Smoker eCW1 ([facility]) Smoking 02/16/2020 12:00:00 AM EST Current Smoker completed Curre nt Smoker eCW1 ([facility]) Smoking 02/16/2020 12:00:00 AM EST Current Smoker completed Curre nt Smoker eCW1 ([facility]) Smoking 02/16/2020 12:00:00 AM EST Current Smoker completed Curre nt Smoker eCW1 ([facility]) Smoking 02/16/2020 12:00:00 AM EST Current Smoker completed Curre nt Smoker eCW1 ([facility]) Smoking 01/28/2020 12:00:00 AM EST Current Smoker completed Curre nt Smoker eCW1 ([facility]) Smoking 01/28/2020 12:00:00 AM EST Current Smoker completed Curre nt Smoker eCW1 ([facility]) Smoking 01/28/2020 12:00:00 AM EST Current Smoker completed Curre nt Smoker eCW1 ([facility]) Smoking 01/28/2020 12:00:00 AM EST Current Smoker completed Curre nt Smoker eCW1 ([facility]) Smoking 01/28/2020 12:00:00 AM EST Current Smoker completed Curre nt Smoker eCW1 ([facility]) Smoking 01/28/2020 12:00:00 AM EST Current Smoker completed Curre nt Smoker eCW1 ([facility]) Smoking 01/15/2020 12:00:00 AM EST Current Smoker completed Curre nt Smoker eCW1 ([facility]) Smoking 01/15/2020 12:00:00 AM EST Current Smoker completed Curre nt Smoker eCW1 ([facility]) Smoking 01/15/2020 12:00:00 AM EST Current Smoker completed Curre nt Smoker eCW1 ([facility]) Smoking 01/15/2020 12:00:00 AM EST Current Smoker completed Curre nt Smoker eCW1 ([facility]) Smoking 01/15/2020 12:00:00 AM EST Current Smoker completed Curre nt Smoker eCW1 ([facility]) Smoking 01/15/2020 12:00:00 AM EST Current Smoker completed Curre nt Smoker eCW1 ([facility]) Smoking 01/15/2020 12:00:00 AM EST Current Smoker completed Curre nt Smoker eCW1 ([facility]) Smoking 01/15/2020 12:00:00 AM EST Current Smoker completed Curre nt Smoker eCW1 ([facility]) Smoking 01/15/2020 12:00:00 AM EST Current Smoker completed Curre nt Smoker eCW1 ([facility]) Smoking 01/15/2020 12:00:00 AM EST Current Smoker completed Curre nt Smoker eCW1 ([facility]) Smoking 01/15/2020 12:00:00 AM EST Current Smoker completed Curre nt Smoker eCW1 ([facility]) Smoking 01/15/2020 12:00:00 AM EST Current Smoker completed Curre nt Smoker eCW1 ([facility]) Smoking 01/15/2020 12:00:00 AM EST Current Smoker completed Curre nt Smoker eCW1 ([facility]) Smoking 01/15/2020 12:00:00 AM EST Current Smoker completed Curre nt Smoker eCW1 ([facility]) Smoking 12/24/2019 12:00:00 AM EST Current Smoker completed Curre nt Smoker eCW1 ([facility]) Smoking 12/24/2019 12:00:00 AM EST Current Smoker completed Curre nt Smoker eCW1 ([facility]) Smoking 12/24/2019 12:00:00 AM EST Current Smoker completed Curre nt Smoker eCW1 ([facility]) Smoking 12/24/2019 12:00:00 AM EST Current Smoker completed Curre nt Smoker eCW1 ([facility]) Smoking 12/24/2019 12:00:00 AM EST Current Smoker completed Curre nt Smoker eCW1 ([facility]) Smoking 12/24/2019 12:00:00 AM EST Current Smoker completed Curre nt Smoker eCW1 ([facility]) Smoking 12/24/2019 12:00:00 AM EST Current Smoker completed Curre nt Smoker eCW1 ([facility]) Smoking 12/24/2019 12:00:00 AM EST Current Smoker completed Curre nt Smoker eCW1 ([facility]) Smoking 12/24/2019 12:00:00 AM EST Current Smoker completed Curre nt Smoker eCW1 ([facility]) Smoking 12/24/2019 12:00:00 AM EST Current Smoker completed Curre nt Smoker eCW1 ([facility]) Smoking 12/24/2019 12:00:00 AM EST Current Smoker completed Curre nt Smoker eCW1 ([facility]) Smoking 12/24/2019 12:00:00 AM EST Current Smoker completed Curre nt Smoker eCW1 ([facility]) Smoking 12/24/2019 12:00:00 AM EST Current Smoker completed Curre nt Smoker eCW1 ([facility]) Smoking 12/24/2019 12:00:00 AM EST Current Smoker completed Curre nt Smoker eCW1 ([facility]) Smoking 12/24/2019 12:00:00 AM EST Current Smoker completed Curre nt Smoker eCW1 ([facility]) Smoking 12/24/2019 12:00:00 AM EST Current Smoker completed Curre nt Smoker eCW1 ([facility]) Smoking 12/24/2019 12:00:00 AM EST Current Smoker completed Curre nt Smoker eCW1 ([facility]) Smoking 12/24/2019 12:00:00 AM EST Current Smoker completed Curre nt Smoker eCW1 ([facility]) Smoking 12/24/2019 12:00:00 AM EST Current Smoker completed Curre nt Smoker eCW1 ([facility]) Smoking 12/24/2019 12:00:00 AM EST Current Smoker completed Curre nt Smoker eCW1 ([facility]) Smoking 12/24/2019 12:00:00 AM EST Current Smoker completed Curre nt Smoker eCW1 ([facility]) Smoking 12/24/2019 12:00:00 AM EST Current Smoker completed Curre nt Smoker eCW1 ([facility]) Smoking 12/24/2019 12:00:00 AM EST Current Smoker completed Curre nt Smoker eCW1 ([facility]) Smoking 12/24/2019 12:00:00 AM EST Current Smoker completed Curre nt Smoker eCW1 ([facility]) Smoking 12/24/2019 12:00:00 AM EST Current Smoker completed Curre nt Smoker eCW1 ([facility]) Smoking 12/22/2019 12:00:00 AM EST Current Smoker completed Curre nt Smoker eCW1 ([facility]) Smoking 12/22/2019 12:00:00 AM EST Current Smoker completed Curre nt Smoker eCW1 ([facility]) Smoking 12/22/2019 12:00:00 AM EST Current Smoker completed Curre nt Smoker eCW1 ([facility]) Smoking 12/18/2019 12:00:00 AM EST Current Smoker completed Curre nt Smoker eCW1 ([facility]) Smoking 12/18/2019 12:00:00 AM EST Current Smoker completed Curre nt Smoker eCW1 ([facility]) Smoking 12/18/2019 12:00:00 AM EST Current Smoker completed Curre nt Smoker eCW1 ([facility]) Smoking 12/18/2019 12:00:00 AM EST Current Smoker completed Curre nt Smoker eCW1 ([facility]) Smoking 12/18/2019 12:00:00 AM EST Current Smoker completed Curre nt Smoker eCW1 ([facility]) Smoking 12/18/2019 12:00:00 AM EST Current Smoker completed Curre nt Smoker eCW1 ([facility]) Smoking 12/11/2019 12:00:00 AM EDT Current Smoker completed Curre nt Smoker eCW1 ([facility]) Smoking 12/11/2019 12:00:00 AM EDT Current Smoker completed Curre nt Smoker eCW1 ([facility]) Smoking 12/11/2019 12:00:00 AM EDT Current Smoker completed Curre nt Smoker eCW1 ([facility]) Smoking 12/11/2019 12:00:00 AM EDT Current Smoker completed Curre nt Smoker eCW1 ([facility]) Smoking 12/09/2019 12:00:00 AM EDT Current Smoker completed Curre nt Smoker eCW1 ([facility]) Smoking 11/30/2019 12:00:00 AM EDT Current Smoker completed Curre nt Smoker eCW1 ([facility]) Smoking 11/30/2019 12:00:00 AM EDT Current Smoker completed Curre nt Smoker eCW1 ([facility]) Smoking 11/30/2019 12:00:00 AM EDT Current Smoker completed Curre nt Smoker eCW1 ([facility]) Smoking 11/30/2019 12:00:00 AM EDT Current Smoker completed Curre nt Smoker eCW1 ([facility]) Smoking 11/30/2019 12:00:00 AM EDT Current Smoker completed Curre nt Smoker eCW1 ([facility]) Smoking 11/30/2019 12:00:00 AM EDT Current Smoker completed Curre nt Smoker eCW1 ([facility]) Smoking 11/24/2019 12:00:00 AM EDT Current Smoker completed Curre nt Smoker eCW1 ([facility]) Smoking 11/12/2019 12:00:00 AM EDT Current Smoker completed Curre nt Smoker eCW1 ([facility]) Smoking 11/12/2019 12:00:00 AM EDT Current Smoker completed Curre nt Smoker eCW1 ([facility]) Smoking 09/04/2019 12:00:00 AM EDT Current Smoker completed Curre nt Smoker eCW1 ([facility]) Smoking 09/04/2019 12:00:00 AM EDT Current Smoker completed Curre nt Smoker eCW1 ([facility]) Smoking 09/04/2019 12:00:00 AM EDT Current Smoker completed Curre nt Smoker eCW1 ([facility]) Smoking 09/04/2019 12:00:00 AM EDT Current Smoker completed Curre nt Smoker eCW1 ([facility]) Smoking 09/04/2019 12:00:00 AM EDT Current Smoker completed Curre nt Smoker eCW1 ([facility]) Smoking 09/04/2019 12:00:00 AM EDT Current Smoker completed Curre nt Smoker eCW1 ([facility]) Smoking 09/04/2019 12:00:00 AM EDT Current Smoker completed Curre nt Smoker eCW1 ([facility]) Smoking 08/31/2019 12:00:00 AM EDT Current Smoker completed Curre nt Smoker eCW1 ([facility]) Smoking 08/31/2019 12:00:00 AM EDT Current Smoker completed Curre nt Smoker eCW1 ([facility]) Smoking 08/31/2019 12:00:00 AM EDT Current Smoker completed Curre nt Smoker eCW1 ([facility]) Smoking 08/25/2019 12:00:00 AM EDT Current Smoker completed Curre nt Smoker eCW1 ([facility]) Smoking 08/25/2019 12:00:00 AM EDT Current Smoker completed Curre nt Smoker eCW1 ([facility]) Smoking 08/25/2019 12:00:00 AM EDT Current Smoker completed Curre nt Smoker eCW1 ([facility]) Smoking 08/25/2019 12:00:00 AM EDT Current Smoker completed Curre nt Smoker eCW1 ([facility]) Smoking 08/25/2019 12:00:00 AM EDT Current Smoker completed Curre nt Smoker eCW1 ([facility]) Smoking 08/04/2019 12:00:00 AM EDT Current Smoker completed Curre nt Smoker eCW1 ([facility]) Smoking 07/13/2019 12:00:00 AM EDT Current Smoker completed Curre nt Smoker eCW1 ([facility]) Smoking 07/13/2019 12:00:00 AM EDT Current Smoker completed Curre nt Smoker eCW1 ([facility]) Smoking 07/13/2019 12:00:00 AM EDT Current Smoker completed Curre nt Smoker eCW1 ([facility]) Smoking 07/13/2019 12:00:00 AM EDT Current Smoker completed Curre nt Smoker eCW1 ([facility]) Alcohol intake 04/04/2019 12:00:00 AM EST Current non-d alma of alcohol (finding) completed Current non-drinker of alcohol (finding) [facility] Cigarette pack-years 04/04/2019 12:00:00 AM EST UNK completed [facility] Cigarettes smoked current (pack per day) - Reported 04/04/19 12:00:00 AM EST UNK completed [facility] Smoking 04/04/2019 12:00:00 AM EST Current every day smoker co mpleted Current every day smoker [facility] Vital Signs ID Date Data Source UNK Name Value Range Interpretation Code Description Data Source(s) Diastolic blood pressure 84 mm[Hg] 84 mm[Hg] eCW1 ([facility]) Systolic blood pressure 130 mm[Hg] 130 mm[Hg] e CW1 ([facility]) Body temperature 97.5 [degF] 97.5 [degF] eCW1 ( [facility]) Respiratory rate 18 /min 18 /min eCW1 ([facility]) Heart rate 102 /min 102 /min eCW1 ([facility]) Body mass index (BMI) [Ratio] 23.03 kg/m2 23.03 kg/m2 W1 ([facility]) Body height 69 [in_i] 69 [in_i] eCW1 ([facility]) Body weight 156 [lb_av] 156 [lb_av] eCW1 ([facility]) Diastolic blood pressure 78 mm[Hg] 78 mm[Hg] eCW1 ([facility]) Systolic blood pressure 132 mm[Hg] 132 mm[Hg] e CW1 ([facility]) Body temperature 98.0 [degF] 98.0 [degF] eCW1 ( [facility]) Respiratory rate 18 /min 18 /min eCW1 ([facility]) Heart rate 99 /min 99 /min eCW1 ([facility]) Body mass index (BMI) [Ratio] 23.33 kg/m2 23.33 kg/m2 eCW1 ([facility]) Body height 69 [in_i] 69 [in_i] eCW1 ([facility]) Body weight 158 [lb_av] 158 [lb_av] eCW1 ([facility]) Diastolic blood pressure 90 mm[Hg] 90 mm[Hg] eCW1 ([facility]) Systolic blood pressure 140 mm[Hg] 140 mm[Hg] e CW1 ([facility]) Body temperature [degF] eCW1 ([facility]) Respiratory rate 18 /min 18 /min eCW1 ([facility]) Heart rate 112 /min 112 /min eCW1 ([facility]) Body mass index (BMI) [Ratio] 23.18 kg/m2 23.18 kg/m2 eCW1 ([facility]) Body height 69 [in_i] 69 [in_i] eCW1 ([facility]) Body weight 157 [lb_av] 157 [lb_av] eCW1 ([facility]) Diastolic blood pressure 80 mm[Hg] 80 mm[Hg] eCW1 ([facility]) Systolic blood pressure 130 mm[Hg] 130 mm[Hg] e CW1 ([facility]) Body temperature 98.2 [degF] 98.2 [degF] eCW1 ( [facility]) Respiratory rate 18 /min 18 /min eCW1 ([facility]) Heart rate 104 /min 104 /min eCW1 ([facility]) Body mass index (BMI) [Ratio] 23.45 kg/m2 23.45 kg/m2 eCW1 ([facility]) Body height 69 [in_i] 69 [in_i] eCW1 ([facility]) Body weight 158.8 [lb_av] 158.8 [lb_av] eCW1 ([facility]) Diastolic blood pressure 100 mm[Hg] 100 mm[Hg] eCW1 ([facility]) Systolic blood pressure 150 mm[Hg] 150 mm[Hg] e CW1 ([facility]) Body temperature 98.2 [degF] 98.2 [degF] eCW1 ( [facility]) Respiratory rate 18 /min 18 /min eCW1 ([facility]) Heart rate 92 /min 92 /min eCW1 ([facility]) Body mass index (BMI) [Ratio] 23.74 kg/m2 23.74 kg/m2 eCW1 ([facility]) Body height 69 [in_i] 69 [in_i] eCW1 ([facility]) Body weight 160.8 [lb_av] 160.8 [lb_av] eCW1 ([facility]) Diastolic blood pressure 98 mm[Hg] 98 mm[Hg] eCW1 ([facility]) Systolic blood pressure 146 mm[Hg] 146 mm[Hg] e CW1 ([facility]) Body temperature 97.6 [degF] 97.6 [degF] eCW1 ( [facility]) Respiratory rate 18 /min 18 /min eCW1 ([facility]) Heart rate 75 /min 75 /min eCW1 ([facility]) Body mass index (BMI) [Ratio] 23.86 kg/m2 23.86 kg/m2 eCW1 ([facility]) Body height 69 [in_i] 69 [in_i] eCW1 ([facility]) Body weight 161.6 [lb_av] 161.6 [lb_av] eCW1 ([facility]) Diastolic blood pressure 93 mm[Hg] 93 mm[Hg] eCW1 ([facility]) Systolic blood pressure 136 mm[Hg] 136 mm[Hg] e CW1 ([facility]) Body temperature 98.6 [degF] 98.6 [degF] eCW1 ( [facility]) Respiratory rate 16 /min 16 /min eCW1 ([facility]) Heart rate 69 /min 69 /min eCW1 ([facility]) Body mass index (BMI) [Ratio] 23.63 kg/m2 23.63 kg/m2 eCW1 ([facility]) Body height 69 [in_i] 69 [in_i] eCW1 ([facility]) Body weight 160 [lb_av] 160 [lb_av] eCW1 ([facility]) Diastolic blood pressure 96 mm[Hg] 96 mm[Hg] eCW1 ([facility]) Systolic blood pressure 148 mm[Hg] 148 mm[Hg] e CW1 ([facility]) Body temperature 98.3 [degF] 98.3 [degF] eCW1 ( [facility]) Respiratory rate 18 /min 18 /min eCW1 ([facility]) Heart rate 73 /min 73 /min eCW1 ([facility]) Body mass index (BMI) [Ratio] 23.42 kg/m2 23.42 kg/m2 eCW1 ([facility]) Body height 69 [in_i] 69 [in_i] eCW1 ([facility]) Body weight 158.6 [lb_av] 158.6 [lb_av] eCW1 ([facility]) Diastolic blood pressure 80 mm[Hg] 80 mm[Hg] eCW1 ([facility]) Systolic blood pressure 120 mm[Hg] 120 mm[Hg] e CW1 ([facility]) Body temperature 97.8 [degF] 97.8 [degF] eCW1 ( [facility]) Respiratory rate 18 /min 18 /min eCW1 ([facility]) Heart rate 103 /min 103 /min eCW1 ([facility]) Body mass index (BMI) [Ratio] 24.19 kg/m2 24.19 kg/m2 eCW1 ([facility]) Body height 69 [in_i] 69 [in_i] eCW1 ([facility]) Body weight 163.8 [lb_av] 163.8 [lb_av] eCW1 ([facility]) Diastolic blood pressure 84 mm[Hg] 84 mm[Hg] eCW1 ([facility]) Systolic blood pressure 198 mm[Hg] 198 mm[Hg] e CW1 ([facility]) Body temperature 97.0 [degF] 97.0 [degF] eCW1 ( [facility]) Respiratory rate 18 /min 18 /min eCW1 ([facility]) Heart rate 89 /min 89 /min eCW1 ([facility]) Body mass index (BMI) [Ratio] 24.25 kg/m2 24.25 kg/m2 eCW1 ([facility]) Body height 69 [in_i] 69 [in_i] eCW1 ([facility]) Body weight 164.2 [lb_av] 164.2 [lb_av] eCW1 ([facility]) Body mass index (BMI) [Ratio] [...] blood pressure 82 mm[Hg] 82 mm[Hg] eCW1 ([facility]) Systolic blood pressure 120 mm[Hg] 120 mm[Hg] e CW1 ([facility]) Body temperature 98 [degF] 98 [degF] eCW1 ([facility]) Respiratory rate 18 /min 18 /min eCW1 ([facility]) Heart rate 125 /min 125 /min eCW1 ([facility]) Body mass index (BMI) [Ratio] 24.19 kg/m2 24.19 kg/m2 eCW1 ([facility]) Body height 69 [in_i] 69 [in_i] eCW1 ([facility]) Body weight 163.8 [lb_av] 163.8 [lb_av] eCW1 ([facility]) Diastolic blood pressure 78 mm[Hg] 78 mm[Hg] eCW1 ([facility]) Systolic blood pressure 130 mm[Hg] 130 mm[Hg] e CW1 ([facility]) Body temperature 98.5 [degF] 98.5 [degF] eCW1 ( [facility]) Respiratory rate 18 /min 18 /min eCW1 ([facility]) Heart rate 102 /min 102 /min eCW1 ([facility]) Body mass index (BMI) [Ratio] 24.57 kg/m2 24.57 kg/m2 eCW1 ([facility]) Body height 69 [in_i] 69 [in_i] eCW1 ([facility]) Body weight 166.4 [lb_av] 166.4 [lb_av] eCW1 ([facility]) Diastolic blood pressure 70 mm[Hg] 70 mm[Hg] eCW1 ([facility]) Systolic blood pressure 110 mm[Hg] 110 mm[Hg] e CW1 ([facility]) Body temperature 97.3 [degF] 97.3 [degF] eCW1 ( [facility]) Respiratory rate 18 /min 18 /min eCW1 ([facility]) Heart rate 107 /min 107 /min eCW1 ([facility]) Body mass index (BMI) [Ratio] 24.22 kg/m2 24.22 kg/m2 eCW1 ([facility]) Body height 69 [in_i] 69 [in_i] eCW1 ([facility]) Body weight 164 [lb_av] 164 [lb_av] eCW1 ([facility]) Diastolic blood pressure 85 mm[Hg] 85 mm[Hg] eCW1 ([facility]) Systolic blood pressure 112 mm[Hg] 112 mm[Hg] e CW1 ([facility]) Body temperature 98.3 [degF] 98.3 [degF] eCW1 ( [facility]) Respiratory rate 18 /min 18 /min eCW1 ([facility]) Heart rate 107 /min 107 /min eCW1 ([facility]) Body mass index (BMI) [Ratio] 23.95 kg/m2 23.95 kg/m2 eCW1 ([facility]) Body height 69 [in_i] 69 [in_i] eCW1 ([facility]) Body weight 162.2 [lb_av] 162.2 [lb_av] eCW1 ([facility]) Diastolic blood pressure 88 mm[Hg] 88 mm[Hg] eCW1 ([facility]) Systolic blood pressure 135 mm[Hg] 135 mm[Hg] e CW1 ([facility]) Body temperature 97.5 [degF] 97.5 [degF] eCW1 ( [facility]) Respiratory rate 18 /min 18 /min eCW1 ([facility]) Heart rate 86 /min 86 /min eCW1 ([facility]) Body mass index (BMI) [Ratio] 24.22 kg/m2 24.22 kg/m2 eCW1 ([facility]) Body height 69 [in_us] 69 [in_us] eCW1 ([facility]) Body weight Measured 164 [lb_av] 164 [lb_av] eC W1 ([facility]) Diastolic blood pressure 86 mm[Hg] 86 mm[Hg] eCW1 ([facility]) Systolic blood pressure 131 mm[Hg] 131 mm[Hg] e CW1 ([facility]) Body temperature 97.9 [degF] 97.9 [degF] eCW1 ( [facility]) Respiratory rate 16 /min 16 /min eCW1 ([facility]) Heart rate 93 /min 93 /min eCW1 ([facility]) Body mass index (BMI) [Ratio] 24.22 kg/m2 24.22 kg/m2 eCW1 ([facility]) Body height 69 [in_us] 69 [in_us] eCW1 ([facility]) Body weight Measured 164 [lb_av] 164 [lb_av] eC W1 ([facility]) Diastolic blood pressure 94 mm[Hg] 94 mm[Hg] eCW1 ([facility]) Systolic blood pressure 137 mm[Hg] 137 mm[Hg] e CW1 ([facility]) Body temperature 98.5 [degF] 98.5 [degF] eCW1 ( [facility]) Respiratory rate 16 /min 16 /min eCW1 ([facility]) Heart rate 90 /min 90 /min eCW1 ([facility]) Body mass index (BMI) [Ratio] 24.22 kg/m2 24.22 kg/m2 eCW1 ([facility]) Body height 69 [in_us] 69 [in_us] eCW1 ([facility]) Body weight Measured 164 [lb_av] 164 [lb_av] eC W1 ([facility]) Diastolic blood pressure 76 mm[Hg] 76 mm[Hg] eCW1 ([facility]) Systolic blood pressure 132 mm[Hg] 132 mm[Hg] e CW1 ([facility]) Body temperature 97.9 [degF] 97.9 [degF] eCW1 ( [facility]) Respiratory rate 18 /min 18 /min eCW1 ([facility]) Heart rate 81 /min 81 /min eCW1 ([facility]) Body mass index (BMI) [Ratio] 24.36 kg/m2 24.36 kg/m2 eCW1 ([facility]) Body height 69 [in_us] 69 [in_us] eCW1 ([facility]) Body weight Measured 165 [lb_av] 165 [lb_av] eC W1 ([facility]) Diastolic blood pressure 86 mm[Hg] 86 mm[Hg] eCW1 ([facility]) Systolic blood pressure 138 mm[Hg] 138 mm[Hg] e CW1 ([facility]) Body temperature 97.1 [degF] 97.1 [degF] eCW1 ( [facility]) Respiratory rate 18 /min 18 /min eCW1 ([facility]) Heart rate 77 /min 77 /min eCW1 ([facility]) Body mass index (BMI) [Ratio] 24.36 kg/m2 24.36 kg/m2 eCW1 ([facility]) Body height 69 [in_us] 69 [in_us] eCW1 ([facility]) Body weight Measured 165.0 [lb_av] 165.0 [lb_av ] eCW1 ([facility]) Diastolic blood pressure 91 mm[Hg] 91 mm[Hg] eCW1 ([facility]) Systolic blood pressure 145 mm[Hg] 145 mm[Hg] e CW1 ([facility]) Body temperature 97.9 [degF] 97.9 [degF] eCW1 ( [facility]) Respiratory rate 18 /min 18 /min eCW1 ([facility]) Heart rate 76 /min 76 /min eCW1 ([facility]) Body mass index (BMI) [Ratio] 24.13 kg/m2 24.13 kg/m2 eCW1 ([facility]) Body height 69 [in_us] 69 [in_us] eCW1 ([facility]) Body weight Measured 163.4 [lb_av] 163.4 [lb_av ] eCW1 ([facility]) Diastolic blood pressure 101 mm[Hg] 101 mm[Hg] eCW1 ([facility]) Systolic blood pressure 141 mm[Hg] 141 mm[Hg] e CW1 ([facility]) Body temperature 97.9 [degF] 97.9 [degF] eCW1 ( [facility]) Respiratory rate 18 /min 18 /min eCW1 ([facility]) Heart rate 82 /min 82 /min eCW1 ([facility]) Body mass index (BMI) [Ratio] 24.13 kg/m2 24.13 kg/m2 eCW1 ([facility]) Body height 69 [in_us] 69 [in_us] eCW1 ([facility]) Body weight Measured 163.4 [lb_av] 163.4 [lb_av ] eCW1 ([facility]) ID Date Data Source [id number] 06/01/2019 11:45:[address] [facility] Name Value Range Interpretation Code Description Data Source(s) WEIGHT RECORDED 165 lb 165 lb [facility] Patient Treatment Plan of Care Planned Activity Planned Date Details Description Data Source (s) Morphine Sulfate 15 MG Oral Tablet 02/23/2020 12:00:00 AM EST eCW1 ([facility]) Acetaminophen 325 MG / Oxycodone Hydrochloride 10 MG O ral Tablet [Percocet] 02/23/2020 12:00:00 AM EST eCW1 ([facility]) Morphine Sulfate 15 MG Oral Tablet 02/23/2020 12:00:00 AM EST eCW1 ([facility]) Acetaminophen 325 MG / Oxycodone Hydrochloride 10 MG O ral Tablet [Percocet] 02/23/2020 12:00:00 AM EST eCW1 ([facility]) Morphine Sulfate 15 MG Oral Tablet 02/23/2020 12:00:00 AM EST eCW1 ([facility]) Acetaminophen 325 MG / Oxycodone Hydrochloride 10 MG O ral Tablet [Percocet] 02/23/2020 12:00:00 AM EST eCW1 ([facility]) Morphine Sulfate 15 MG Oral Tablet 02/23/2020 12:00:00 AM EST eCW1 ([facility]) Acetaminophen 325 MG / Oxycodone Hydrochloride 10 MG O ral Tablet [Percocet] 02/23/2020 12:00:00 AM EST eCW1 ([facility]) Morphine Sulfate 15 MG Oral Tablet 02/23/2020 12:00:00 AM EST eCW1 ([facility]) Acetaminophen 325 MG / Oxycodone Hydrochloride 10 MG O ral Tablet [Percocet] 02/23/2020 12:00:00 AM EST eCW1 ([facility]) Morphine Sulfate 15 MG Oral Tablet 02/23/2020 12:00:00 AM EST eCW1 ([facility]) Acetaminophen 325 MG / Oxycodone Hydrochloride 10 MG O ral Tablet [Percocet] 02/23/2020 12:00:00 AM EST eCW1 ([facility]) Budesonide 180 MCG/ACT 02/16/2020 12:00:00 AM EST eCW1 ([facility]) Budesonide 180 MCG/ACT 02/16/2020 12:00:00 AM EST eCW1 ([facility]) Budesonide 180 MCG/ACT 02/16/2020 12:00:00 AM EST eCW1 ([facility]) Budesonide 180 MCG/ACT 02/16/2020 12:00:00 AM EST eCW1 ([facility]) Budesonide 180 MCG/ACT 02/16/2020 12:00:00 AM EST eCW1 ([facility]) Budesonide 180 MCG/ACT 02/16/2020 12:00:00 AM EST eCW1 ([facility]) Albuterol 0.833 MG/ML / Ipratropium [place] 0.167 MG/M L Inhalant Solution 01/28/2020 12:00:00 AM EST eCW1 ([facility]) Albuterol 0.833 MG/ML / Ipratropium [place] 0.167 MG/M L Inhalant Solution 01/28/2020 12:00:00 AM EST eCW1 ([facility]) Albuterol 0.833 MG/ML / Ipratropium [place] 0.167 MG/M L Inhalant Solution 01/28/2020 12:00:00 AM EST eCW1 ([facility]) Albuterol 0.833 MG/ML / Ipratropium [place] 0.167 MG/M L Inhalant Solution 01/28/2020 12:00:00 AM EST eCW1 ([facility]) Albuterol 0.833 MG/ML / Ipratropium [place] 0.167 MG/M L Inhalant Solution 01/28/2020 12:00:00 AM EST eCW1 ([facility]) Albuterol 0.833 MG/ML / Ipratropium [place] 0.167 MG/M L Inhalant Solution 01/28/2020 12:00:00 AM EST eCW1 ([facility]) Morphine Sulfate ER 15 MG 01/27/2020 12:00:00 AM EST eCW1 ([facility]) Morphine Sulfate 15 MG Extended Release Oral Tablet 01/27/20 12:00:00 AM EST eCW1 ([facility]) Morphine Sulfate 15 MG Oral Tablet 01/27/2020 12:00:00 AM EST eCW1 ([facility]) Morphine Sulfate ER 15 MG 01/27/2020 12:00:00 AM EST eCW1 ([facility]) Morphine Sulfate 15 MG Extended Release Oral Tablet 01/27/20 12:00:00 AM EST eCW1 ([facility]) Morphine Sulfate 15 MG Oral Tablet 01/27/2020 12:00:00 AM EST eCW1 ([facility]) Morphine Sulfate ER 15 MG 01/26/2020 12:00:00 AM EST eCW1 ([facility]) Acetaminophen 325 MG / Oxycodone Hydrochloride 10 MG O ral Tablet [Percocet] 01/22/2020 12:00:00 AM EST eCW1 ([facility]) Acetaminophen 325 MG / Oxycodone Hydrochloride 10 MG O ral Tablet [Percocet] 01/22/2020 12:00:00 AM EST eCW1 ([facility]) Acetaminophen 325 MG / Oxycodone Hydrochloride 10 MG O ral Tablet [Percocet] 01/22/2020 12:00:00 AM EST eCW1 ([facility]) Acetaminophen 325 MG / Oxycodone Hydrochloride 10 MG O ral Tablet [Percocet] 01/22/2020 12:00:00 AM EST eCW1 ([facility]) Acetaminophen 325 MG / Oxycodone Hydrochloride 10 MG O ral Tablet [Percocet] 01/22/2020 12:00:00 AM EST eCW1 ([facility]) Acetaminophen 325 MG / Oxycodone Hydrochloride 10 MG O ral Tablet [Percocet] 01/22/2020 12:00:00 AM EST eCW1 ([facility]) Acetaminophen 325 MG / Oxycodone Hydrochloride 10 MG O ral Tablet [Percocet] 01/22/2020 12:00:00 AM EST eCW1 ([facility]) Morphine Sulfate ER 15 MG 01/20/2020 12:00:00 AM EST eCW1 ([facility]) Morphine Sulfate ER 15 MG 01/20/2020 12:00:00 AM EST eCW1 ([facility]) Morphine Sulfate ER 15 MG 01/20/2020 12:00:00 AM EST eCW1 ([facility]) Morphine Sulfate ER 15 MG 01/20/2020 12:00:00 AM EST eCW1 ([facility]) Morphine Sulfate ER 15 MG 01/20/2020 12:00:00 AM EST eCW1 ([facility]) Morphine Sulfate ER 15 MG 01/20/2020 12:00:00 AM EST eCW1 ([facility]) Morphine Sulfate ER 15 MG 01/20/2020 12:00:00 AM EST eCW1 ([facility]) duloxetine 30 MG Delayed Release Oral Capsule [Cymbalt a] 01/13/2020 12:00:00 AM EST eCW1 ([facility]) Spiriva Respimat 1.25 MCG/ACT 12/29/2019 12:00:00 AM EST eCW1 ([facility]) Spiriva Respimat 1.25 MCG/ACT 12/29/2019 12:00:00 AM EST eCW1 ([facility]) Spiriva Respimat 1.25 MCG/ACT 12/29/2019 12:00:00 AM EST eCW1 ([facility]) Spiriva Respimat 1.25 MCG/ACT 12/29/2019 12:00:00 AM EST eCW1 ([facility]) Spiriva Respimat 1.25 MCG/ACT 12/29/2019 12:00:00 AM EST eCW1 ([facility]) Spiriva Respimat 1.25 MCG/ACT 12/29/2019 12:00:00 AM EST eCW1 ([facility]) Spiriva Respimat 1.25 MCG/ACT 12/29/2019 12:00:00 AM EST eCW1 ([facility]) Spiriva Respimat 1.25 MCG/ACT 12/29/2019 12:00:00 AM EST eCW1 ([facility]) Spiriva Respimat 1.25 MCG/ACT 12/29/2019 12:00:00 AM EST eCW1 ([facility]) Spiriva Respimat 1.25 MCG/ACT 12/29/2019 12:00:00 AM EST eCW1 ([facility]) Spiriva Respimat 1.25 MCG/ACT 12/29/2019 12:00:00 AM EST eCW1 ([facility]) Spiriva Respimat 1.25 MCG/ACT 12/29/2019 12:00:00 AM EST eCW1 ([facility]) Spiriva Respimat 1.25 MCG/ACT 12/29/2019 12:00:00 AM EST eCW1 ([facility]) Acetaminophen 325 MG / Oxycodone Hydrochloride 10 MG O ral Tablet [Percocet] 12/22/2019 12:00:00 AM EST eCW1 ([facility]) Omeprazole 40 MG Delayed Release Oral Capsule 12/22/2019 12:00:00 A M EST eCW1 ([facility]) Sucralfate 1000 MG Oral Tablet 12/22/2019 12:00:00 AM EST eCW1 ([facility]) Acetaminophen 325 MG / Oxycodone Hydrochloride 10 MG O ral Tablet [Percocet] 12/22/2019 12:00:00 AM EST eCW1 ([facility]) Omeprazole 40 MG Delayed Release Oral Capsule 12/22/2019 12:00:00 A M EST eCW1 ([facility]) Sucralfate 1000 MG Oral Tablet 12/22/2019 12:00:00 AM EST eCW1 ([facility]) Acetaminophen 325 MG / Oxycodone Hydrochloride 10 MG O ral Tablet [Percocet] 12/22/2019 12:00:00 AM EST eCW1 ([facility]) Sucralfate 1000 MG Oral Tablet 12/22/2019 12:00:00 AM EST eCW1 ([facility]) Omeprazole 40 MG Delayed Release Oral Capsule 12/22/2019 12:00:00 A M EST eCW1 ([facility]) Acetaminophen 325 MG / Oxycodone Hydrochloride 10 MG O ral Tablet [Percocet] 12/22/2019 12:00:00 AM EST eCW1 ([facility]) Sucralfate 1000 MG Oral Tablet 12/22/2019 12:00:00 AM EST eCW1 ([facility]) Omeprazole 40 MG Delayed Release Oral Capsule 12/22/2019 12:00:00 A M EST eCW1 ([facility]) Acetaminophen 325 MG / Oxycodone Hydrochloride 10 MG O ral Tablet [Percocet] 12/22/2019 12:00:00 AM EST eCW1 ([facility]) Sucralfate 1000 MG Oral Tablet 12/22/2019 12:00:00 AM EST eCW1 ([facility]) Omeprazole 40 MG Delayed Release Oral Capsule 12/22/2019 12:00:00 A M EST eCW1 ([facility]) Acetaminophen 325 MG / Oxycodone Hydrochloride 10 MG O ral Tablet [Percocet] 12/22/2019 12:00:00 AM EST eCW1 ([facility]) Sucralfate 1000 MG Oral Tablet 12/22/2019 12:00:00 AM EST eCW1 ([facility]) Omeprazole 40 MG Delayed Release Oral Capsule 12/22/2019 12:00:00 A M EST eCW1 ([facility]) Omeprazole 40 MG Delayed Release Oral Capsule 12/22/2019 12:00:00 A M EST eCW1 ([facility]) Sucralfate 1000 MG Oral Tablet 12/22/2019 12:00:00 AM EST eCW1 ([facility]) Omeprazole 40 MG Delayed Release Oral Capsule 12/22/2019 12:00:00 A M EST eCW1 ([facility]) Sucralfate 1000 MG Oral Tablet 12/22/2019 12:00:00 AM EST eCW1 ([facility]) Omeprazole 40 MG Delayed Release Oral Capsule 12/22/2019 12:00:00 A M EST eCW1 ([facility]) Sucralfate 1000 MG Oral Tablet 12/22/2019 12:00:00 AM EST eCW1 ([facility]) Omeprazole 40 MG Delayed Release Oral Capsule 12/22/2019 12:00:00 A M EST eCW1 ([facility]) Sucralfate 1000 MG Oral Tablet 12/22/2019 12:00:00 AM EST eCW1 ([facility]) Omeprazole 40 MG Delayed Release Oral Capsule 12/22/2019 12:00:00 A M EST eCW1 ([facility]) Sucralfate 1000 MG Oral Tablet 12/22/2019 12:00:00 AM EST eCW1 ([facility]) Omeprazole 40 MG Delayed Release Oral Capsule 12/22/2019 12:00:00 A M EST eCW1 ([facility]) Sucralfate 1000 MG Oral Tablet 12/22/2019 12:00:00 AM EST eCW1 ([facility]) Omeprazole 40 MG Delayed Release Oral Capsule 12/22/2019 12:00:00 A M EST eCW1 ([facility]) Sucralfate 1000 MG Oral Tablet 12/22/2019 12:00:00 AM EST eCW1 ([facility]) Acetaminophen 325 MG / Oxycodone Hydrochloride 10 MG O ral Tablet [Percocet] 12/22/2019 12:00:00 AM EST eCW1 ([facility]) Omeprazole 40 MG Delayed Release Oral Capsule 12/22/2019 12:00:00 A M EST eCW1 ([facility]) Sucralfate 1000 MG Oral Tablet 12/22/2019 12:00:00 AM EST eCW1 ([facility]) Omeprazole 40 MG Delayed Release Oral Capsule 12/22/2019 12:00:00 A M EST eCW1 ([facility]) Sucralfate 1000 MG Oral Tablet 12/22/2019 12:00:00 AM EST eCW1 ([facility]) Omeprazole 40 MG Delayed Release Oral Capsule 12/22/2019 12:00:00 A M EST eCW1 ([facility]) Sucralfate 1000 MG Oral Tablet 12/22/2019 12:00:00 AM EST eCW1 ([facility]) Omeprazole 40 MG Delayed Release Oral Capsule 12/22/2019 12:00:00 A M EST eCW1 ([facility]) Sucralfate 1000 MG Oral Tablet 12/22/2019 12:00:00 AM EST eCW1 ([facility]) Acetaminophen 325 MG / Oxycodone Hydrochloride 10 MG O ral Tablet [Percocet] 11/24/2019 12:00:00 AM EDT eCW1 ([facility]) Diazepam 2 MG Oral Tablet 11/10/2019 12:00:00 AM EDT eCW1 ([facility]) Diazepam 2 MG Oral Tablet 11/10/2019 12:00:00 AM EDT eCW1 ([facility]) Diazepam 2 MG Oral Tablet 11/10/2019 12:00:00 AM EDT eCW1 ([facility]) Diazepam 2 MG Oral Tablet 11/10/2019 12:00:00 AM EDT eCW1 ([facility]) Diazepam 2 MG Oral Tablet 11/10/2019 12:00:00 AM EDT eCW1 ([facility]) Diazepam 2 MG Oral Tablet 11/10/2019 12:00:00 AM EDT eCW1 ([facility]) Diazepam 2 MG Oral Tablet 11/10/2019 12:00:00 AM EDT eCW1 ([facility]) Diazepam 2 MG Oral Tablet 11/10/2019 12:00:00 AM EDT eCW1 ([facility]) Diazepam 2 MG Oral Tablet 11/10/2019 12:00:00 AM EDT eCW1 ([facility]) Diazepam 2 MG Oral Tablet 11/10/2019 12:00:00 AM EDT eCW1 ([facility]) Diazepam 2 MG Oral Tablet 11/10/2019 12:00:00 AM EDT eCW1 ([facility]) Diazepam 2 MG Oral Tablet 11/10/2019 12:00:00 AM EDT eCW1 ([facility]) Diazepam 2 MG Oral Tablet 11/10/2019 12:00:00 AM EDT eCW1 ([facility]) Diazepam 2 MG Oral Tablet 11/10/2019 12:00:00 AM EDT eCW1 ([facility]) Diazepam 2 MG Oral Tablet 11/10/2019 12:00:00 AM EDT eCW1 ([facility]) Diazepam 2 MG Oral Tablet 11/10/2019 12:00:00 AM EDT eCW1 ([facility]) Diazepam 2 MG Oral Tablet 11/10/2019 12:00:00 AM EDT eCW1 ([facility]) Diazepam 2 MG Oral Tablet 11/10/2019 12:00:00 AM EDT eCW1 ([facility]) Diazepam 2 MG Oral Tablet 11/10/2019 12:00:00 AM EDT eCW1 ([facility]) Diazepam 2 MG Oral Tablet 11/10/2019 12:00:00 AM EDT eCW1 ([facility]) Diazepam 2 MG Oral Tablet 11/10/2019 12:00:00 AM EDT eCW1 ([facility]) Diazepam 2 MG Oral Tablet 11/10/2019 12:00:00 AM EDT eCW1 ([facility]) Diazepam 2 MG Oral Tablet 11/10/2019 12:00:00 AM EDT eCW1 ([facility]) Diazepam 2 MG Oral Tablet 11/10/2019 12:00:00 AM EDT eCW1 ([facility]) Diazepam 2 MG Oral Tablet 11/10/2019 12:00:00 AM EDT eCW1 ([facility]) Diazepam 2 MG Oral Tablet 11/10/2019 12:00:00 AM EDT eCW1 ([facility]) Diazepam 2 MG Oral Tablet 11/10/2019 12:00:00 AM EDT eCW1 ([facility]) Diazepam 2 MG Oral Tablet 11/10/2019 12:00:00 AM EDT eCW1 ([facility]) Diazepam 2 MG Oral Tablet 11/10/2019 12:00:00 AM EDT eCW1 ([facility]) Diazepam 2 MG Oral Tablet 11/10/2019 12:00:00 AM EDT eCW1 ([facility]) Diazepam 2 MG Oral Tablet 11/10/2019 12:00:00 AM EDT eCW1 ([facility]) Diazepam 2 MG Oral Tablet 11/10/2019 12:00:00 AM EDT eCW1 ([facility]) Diazepam 2 MG Oral Tablet 11/10/2019 12:00:00 AM EDT eCW1 ([facility]) Diazepam 2 MG Oral Tablet 11/10/2019 12:00:00 AM EDT eCW1 ([facility]) Diazepam 2 MG Oral Tablet 11/10/2019 12:00:00 AM EDT eCW1 ([facility]) Diazepam 2 MG Oral Tablet 11/10/2019 12:00:00 AM EDT eCW1 ([facility]) Diazepam 2 MG Oral Tablet 11/10/2019 12:00:00 AM EDT eCW1 ([facility]) Diazepam 2 MG Oral Tablet 11/10/2019 12:00:00 AM EDT eCW1 ([facility]) Diazepam 2 MG Oral Tablet 11/10/2019 12:00:00 AM EDT eCW1 ([facility]) Diazepam 2 MG Oral Tablet 11/10/2019 12:00:00 AM EDT eCW1 ([facility]) Diazepam 2 MG Oral Tablet 11/10/2019 12:00:00 AM EDT eCW1 ([facility]) Diazepam 2 MG Oral Tablet 11/10/2019 12:00:00 AM EDT eCW1 ([facility]) Diazepam 2 MG Oral Tablet 11/10/2019 12:00:00 AM EDT eCW1 ([facility]) Diazepam 2 MG Oral Tablet 11/10/2019 12:00:00 AM EDT eCW1 ([facility]) Diazepam 2 MG Oral Tablet 11/10/2019 12:00:00 AM EDT eCW1 ([facility]) Diazepam 2 MG Oral Tablet 11/10/2019 12:00:00 AM EDT eCW1 ([facility]) Diazepam 2 MG Oral Tablet 11/10/2019 12:00:00 AM EDT eCW1 ([facility]) Diazepam 2 MG Oral Tablet 11/10/2019 12:00:00 AM EDT eCW1 ([facility]) Diazepam 2 MG Oral Tablet 11/10/2019 12:00:00 AM EDT eCW1 ([facility]) 28 ACTUAT tiotropium 0.0025 MG/ACTUAT Metered Dose Inh aler [Spiriva] 09/04/2019 12:00:00 AM EDT eCW1 ([facility]) 28 ACTUAT tiotropium 0.0025 MG/ACTUAT Metered Dose Inh aler [Spiriva] 09/04/2019 12:00:00 AM EDT eCW1 ([facility]) 28 ACTUAT tiotropium 0.0025 MG/ACTUAT Metered Dose Inh aler [Spiriva] 09/04/2019 12:00:00 AM EDT eCW1 ([facility]) 28 ACTUAT tiotropium 0.0025 MG/ACTUAT Metered Dose Inh aler [Spiriva] 09/04/2019 12:00:00 AM EDT eCW1 ([facility]) 28 ACTUAT tiotropium 0.0025 MG/ACTUAT Metered Dose Inh aler [Spiriva] 09/04/2019 12:00:00 AM EDT eCW1 ([facility]) 28 ACTUAT tiotropium 0.0025 MG/ACTUAT Metered Dose Inh aler [Spiriva] 09/04/2019 12:00:00 AM EDT eCW1 ([facility]) 28 ACTUAT tiotropium 0.0025 MG/ACTUAT Metered Dose Inh aler [Spiriva] 09/04/2019 12:00:00 AM EDT eCW1 ([facility]) Morphine Sulfate 15 MG Extended Release Oral Tablet 09/03/19 20 12:00:00 AM EDT eCW1 ([facility]) 200 ACTUAT Albuterol 0.09 MG/ACTUAT Metered Dose Inhal er [Ventolin] 08/25/2019 12:00:00 AM EDT eCW1 ([facility]) tiotropium 0.018 MG/ACTUAT Inhalant Powder [Spiriva] 12:00:00 AM EDT eCW1 ([facility]) 200 ACTUAT Albuterol 0.09 MG/ACTUAT Metered Dose Inhal er [Ventolin] 08/25/2019 12:00:00 AM EDT eCW1 ([facility]) tiotropium 0.018 MG/ACTUAT Inhalant Powder [Spiriva] 12:00:00 AM EDT eCW1 ([facility]) 200 ACTUAT Albuterol 0.09 MG/ACTUAT Metered Dose Inhal er [Ventolin] 08/25/2019 12:00:00 AM EDT eCW1 ([facility]) tiotropium 0.018 MG/ACTUAT Inhalant Powder [Spiriva] 12:00:00 AM EDT eCW1 ([facility]) 200 ACTUAT Albuterol 0.09 MG/ACTUAT Metered Dose Inhal er [Ventolin] 08/25/2019 12:00:00 AM EDT eCW1 ([facility]) tiotropium 0.018 MG/ACTUAT Inhalant Powder [Spiriva] 12:00:00 AM EDT eCW1 ([facility]) 200 ACTUAT Albuterol 0.09 MG/ACTUAT Metered Dose Inhal er [Ventolin] 08/25/2019 12:00:00 AM EDT eCW1 ([facility]) tiotropium 0.018 MG/ACTUAT Inhalant Powder [Spiriva] 12:00:00 AM EDT eCW1 ([facility]) Chlorthalidone 25 MG Oral Tablet 08/04/2019 12:00:00 AM EDT eCW1 ([facility]) Propranolol Hydrochloride 10 MG Oral Tablet 08/04/2019 12:00:00 AM EDT eCW1 ([facility]) Morphine Sulfate 15 MG Extended Release Oral Tablet 07/28/19 12:00:00 AM EDT eCW1 ([facility]) Morphine Sulfate 15 MG Extended Release Oral Tablet 07/28/19 12:00:00 AM EDT eCW1 ([facility]) Acetaminophen 325 MG / Oxycodone Hydrochloride 10 MG O ral Tablet [Percocet] 07/13/2019 12:00:00 AM EDT eCW1 ([facility]) Morphine Sulfate 15 MG Extended Release Oral Tablet 07/07/19 12:00:00 AM EDT eCW1 ([facility]) Acetaminophen 325 MG / Oxycodone Hydrochloride 10 MG O ral Tablet [Percocet] 06/17/2019 12:00:00 AM EDT eCW1 ([facility]) Morphine Sulfate 15 MG Extended Release Oral Tablet 06/03/19 12:00:00 AM EDT eCW1 ([facility]) Acetaminophen 325 MG / Oxycodone Hydrochloride 10 MG O ral Tablet [Percocet] 05/18/2019 12:00:00 AM EDT eCW1 ([facility]) Morphine Sulfate 15 MG Extended Release Oral Tablet 05/04/19 12:00:00 AM EDT eCW1 ([facility]) Morphine Sulfate 15 MG Extended Release Oral Tablet 04/08/19 12:00:00 AM EST eCW1 ([facility]) Diazepam 5 MG Oral Tablet 04/01/2019 12:00:00 AM [facility] atorvastatin 40 MG Oral Tablet 03/26/2019 12:00:00 AM EST eCW1 ([facility]) atorvastatin 40 MG Oral Tablet 03/26/2019 12:00:00 AM EST eCW1 ([facility]) atorvastatin 40 MG Oral Tablet 03/26/2019 12:00:00 AM EST eCW1 ([facility]) Nystatin [id number] UNT/ML Topical Cream 03/26/2019 12:00:00 AM EST eCW1 ([facility]) Nystatin [id number] UNT/ML Topical Cream 03/26/2019 12:00:00 AM EST eCW1 ([facility]) Nystatin [id number] UNT/ML Topical Cream 03/26/2019 12:00:00 AM EST eCW1 ([facility]) atorvastatin 40 MG Oral Tablet 03/26/2019 12:00:00 AM EST eCW1 ([facility]) Losartan Potassium 50 MG Oral Tablet 03/26/2019 12:00:00 AM [facility] Ergocalciferol [id number] UNT Oral Capsule 03/26/2019 12:00:00 AM [facility] atorvastatin 40 MG Oral Tablet 03/26/2019 12:00:00 AM [facility] Nystatin [id number] UNT/ML Topical Cream 03/26/2019 12:00:00 AM EST eCW1 ([facility]) atorvastatin 40 MG Oral Tablet 03/26/2019 12:00:00 AM EST eCW1 ([facility]) Acetaminophen 325 MG / Oxycodone Hydrochloride 10 MG O ral Tablet [Percocet] 03/25/2019 12:00:00 AM EST eCW1 ([facility]) Morphine Sulfate 15 MG Extended Release Oral Tablet 03/10/19 12:00:00 AM EST eCW1 ([facility]) Diazepam 5 MG Oral Tablet 03/05/2019 12:00:00 AM [facility] Acetaminophen 325 MG / Oxycodone Hydrochloride 10 MG O ral Tablet [Percocet] 02/17/2019 12:00:00 AM EST eCW1 ([facility]) Morphine Sulfate 15 MG Extended Release Oral Tablet 02/12/19 12:00:00 AM EST eCW1 ([facility]) duloxetine 30 MG Delayed Release Oral Capsule 12/30/2018 12:00:00 A M [facility] Losartan Potassium 25 MG Oral Tablet 05/14/2018 12:00:00 AM [facility] Propranolol Hydrochloride 20 MG Oral Tablet 01/13/2018 12:00:00 AM [facility] Oxycodone Hydrochloride 5 MG Oral Tablet 06/25/2017 12:00:00 AM [facility]
[2020-04-09 09:10] LABS: AMPHETAMINES LEVEL URINE NEGATIVE (NEGATIVE); BARBITURATES URINE NEGATIVE (NEGATIVE); BENZODIAZEPINES URINE NEGATIVE (NEGATIVE); CANNABINOIDS URINE NEGATIVE (NEGATIVE); COCAINE METABOLITE URINE NEGATIVE (NEGATIVE); METHADONE URINE NEGATIVE (NEGATIVE); OPIATES URINE POSITIVE (NEGATIVE); PHENCYCLIDINE URINE NEGATIVE (NEGATIVE)
[2020-04-09] MEDS ORDERED: ACETAMINOPHEN 325 MG TAB As Ordered ONE (12:43)
[2020-04-09] MEDS ORDERED: AMIT50TA PO (14:33)
[2020-04-09] MEDS ORDERED: MORP-69 PO (14:33)
[2020-04-09] MEDS ORDERED: AMLO-179 PO (14:33)
[2020-04-09] MEDS ORDERED: AMIT25TA17 PO (14:33)
[2020-04-09] MEDS ORDERED: OXYC10TA3 PO (14:33)
[2020-04-09] MEDS ORDERED: GABA-282 PO (14:33)
[2020-04-09] MEDS ORDERED: BUSP10TA PO (14:33)
[2020-04-09 15:02] LABS: RSV AMPLIFICATION NEGATIVE (NEGATIVE)
[2020-04-09] MEDS ORDERED: traZODone 50 MG TAB PO PRN (15:35)
[2020-04-09] MEDS ORDERED: MAALOX 30 ML SUSP *UDC PO PRN (15:35)
[2020-04-09] MEDS ORDERED: MOM 30ML SUSPENSION UDC PO PRN (15:35)
[2020-04-09] MEDS ORDERED: ACETAMINOPHEN TAB 650MG DOSE (2X325MG) PO PRN (15:35)
[2020-04-09 16:45] VITALS: BP 132/89
[2020-04-09 18:27] LABS: CK-MB VALUE MASS 1.4 NG/ML (<3.6); CPK CREATINE PHOSPHOKINASE 100 U/L (39-308); TROPONIN I < 0.02 NG/ML (< 0.10)
--- NOTE | 2020-04-09 18:56 | REP ---
INDICATION: chest pain. COMPARISON: 03/24/2020. TECHNIQUE: SINGLE PORTABLE AP VIEW OF THE CHEST WAS PERFORMED. FINDINGS: There is no acute infiltrate. Calcified granuloma is again seen in the left lung base. The heart is normal in size. The mediastinal silhouette is unremarkable and unchanged. IMPRESSION: NO ACUTE PULMONARY DISEASE. <Electronically signed by Scott Cornejo > 04/09/20 [id number]
--- NOTE | 2020-04-09 19:26 | IPNPDOC ---
Text Note Date of Service The patient was seen on 04/09/20. NOTE Nurse from [facility] called as patient who was admitted today complained that he was having chest pain from last night. I went an examined the patient. He was sitting comfortably in his room at the table having dinner. He said the pain was in the central chest and was going up towards the neck. He also complained of back pain and bilateral shoulder pain . He reported that he goes to the pain clinic and gets pain medications and had ran out of his medications 1 week ago. Denied any SOB, nuasea or vomiting or dizziness or light headedness or diaphoresis. Vitals stable as below General: sitting up comfortably no distress. Chest clear to auscultation, Bilateral costochondral junctions are tender. Heart sounds regular normal rate, no murmur rub or gallop Abdomen , soft nontender, bowel sounds normal Ex: no edema. A/P Likely musculoskeletal chest pain EKG done : Normal sinus rhythm, cardiac enzymes first set negative. will repeat in 6 hours, CXR no acute changes Will restart combivent for his COPD. Will continue gabapentin and propranolol . He is chronically on Morphine 15mg tid and percocet 10/325 tid through pain management. I have printed out the record of the ISTOP and given to the nurse. I did not resume this tonight. VS,Michelae, I+O VS, Sara, I+O Laboratory Tests 04/09/20 05:57 Vital Signs Date Time Temp Pulse Resp B/P (MAP) Pulse Ox O2 Delivery O2 Flow Rate FiO2 04/09/20 16:45 98.1 105 14 132/89 (103) 100 Room Air BRITTANY BROOKS MD Apr 09, 2020 19:26
[2020-04-09] MEDS: COMBIVENT RESPIMAT 100-20MCG INHALER 4GM INH SCH (20:30)
[2020-04-09] MEDS: PROPRANOLOL 20 MG TAB PO SCH (20:30)
[2020-04-09] MEDS: GABAPENTIN 300 MG CAP PO SCH (20:30)
--- NOTE | 2020-04-09 20:36 | ECGEPIP ---
[facility] Test Date: 2020-04-09 Pat Name: TAMARA MONROY Department: Room: [place] [address] Gender: Male Office Services Specialist: robel : 1965 Requested By: BRITTANY BROOKS Order Number: [id number] Reading MD: Pablo Aly Measurements Intervals Art Rate: 83 P: 75 NM: 114 QRS: -32 QRSD: 78 T: 61 QT: 344 QTc: 404 Interpretive Statements Normal sinus rhythm Left axis deviation Early precordial transition. Decreased heart rate compared with 03/24/2020. Electronically Signed on 04-09-2020 20:36:04 EST by Pablo Aly
[2020-04-10 00:47] LABS: CK-MB VALUE MASS 1.3 NG/ML (<3.6); CPK CREATINE PHOSPHOKINASE 91 U/L (39-308); MB/CK RELATIVE INDEX 1.43 (< OR =4)
[2020-04-10 00:48] LABS: TROPONIN I < 0.02 NG/ML (< 0.10)
[2020-04-10] MEDS: COMBIVENT RESPIMAT 100-20MCG INHALER 4GM INH SCH ×5 (02:00→21:29)
[2020-04-10] MEDS: OLANZapine ORAL DISINTEGRATING TAB 5MG PO PRN (04:34)
[2020-04-10 06:47] VITALS: BP 89/58
--- NOTE | 2020-04-10 07:50 | MHHPEPDOC ---
General Date Of Admission: Apr 09, 2020 Legal Status: 9.39 Chief Complaint 55-year-old male evaluated in the emergency room chief complaint "I didn't feel good." History of Present Illness HISTORY OF THE PRESENT ILLNESS: Patient is a 55 -year-old , male, who was recently in the hospital in February with almost the exact same complaints as now. Patient lives with and was taking morphine and OxyContin for back pain. Apparently, he has run out of those meds as an last admission. He claimed he had bizarre dreams and hadn't slept for 2 nights. He states he's having issues with his organs and other parts internally being out of place. As in the last admission. He states she's having trouble breathing. As of the last admission. He states his stomach hurts and that his chest is tight. He states his stomach is expanding. He told the emergency room nurse that his brain. Also was having problems, but he then denied that to me. He states his body is dysphoric. He is apparently been treated for the last [address] Devine at [facility]. He has been also diagnosed with COPD. He is on apparently amitriptyline, which may be being used for pain. He states he takes 5 of those in the morning, which should be 125 and the need says he takes 5 in the evening. He is also on gabapentin. He states he takes 400 milligrams times 4 in the morning and 600 in the evening. His surgical history is negative. His neurological history is negative. He has been for 36 years. He states he has no difficulties with his blood pressure and does not have diabetes. He has 2 children, 31 and 35. He has a high school education. He denies drug use and alcohol use. He was recently in the emergency room 2 days ago and there may be some issue with noncompliance with follow-up appointments. The patient can be pleasant but also explosive as noted in his emergency room notes on previous admission. His says he can be belligerent and hallucinate. He has a history of hypertension, GERD and COPD past notes. States he was also on Cymbalta and Valium. In addition, he is on morphine and oxycodone unclear whether these filled those prescriptions BuSpar and Valium as mentioned Psychiatric Review of Systems Depression (2 or more weeks): denies Jerilyn (4 or more days of): denies Psychosis: delusions PTSD: nightmares and flashbacks, mood fluctuations Anxiety: gen/non-specific anxiety Anxiety/ 6 months or more of: sleep disturbance Past Psychiatric History Previous Psychiatric Diagnosis: Variable. Has been treated for depression, has been treated for pain, has been treated for psychosis Previous Psychiatric Admissions:. Emergency room visits and psychiatric hospitalization in February. Suicide Attempts:. None noted. Psychiatric Follow-up: Apparent follow-up. Dr. Devine and therapist in [place]. Psychiatric medications: Variable, as mentioned, including BuSpar, Valium, amitriptyline, gabapentin. Past Medical History Medical Problems Chronic back pain, COPD, GERD Head Injury: No Seizures: No Hospitalizations: Yes Surgeries: No Family Medical/Psychiatric HX Psychiatric Disorders: No Addiction: No Suicide Attemps/Completions: No Addiction History denies Social History Childhood: Noncontributory Abuse/Trauma: Noncontributory. Current Living Situation: With . Education:. High school. Employment: Not employed. Social Support:. Legal: Noncontributory. Marital: 36 years. Mental Status Examination General Appearance: unkempt Build: thin Demeanor: average, hostile Eye Contact: average Activity: average Behavior: cooperative Speech: clear Mood: euthymic Mood Variable but pleasant On evaluation Affect: full Thought Process: logical/linear Thought Content (Delusions): somatic Thought Content (Other): none reported Thought Content (Aggressive): none reported Perception (Hallucinations): none reported Perception (Other): none reported Cognition (Impairment of): none reported Cognition(Intelligence Est.): average Oriented: Awake, Alert, Oriented times three Insight: poor Judgment: Poor Psychosis: Psychotic Perceptions Diagnoses Unspecified psychotic disorder A-FIB/CHADSVASC A-FIB History Current/History of A-Fib/PAF?: No Current PO Anticoag Therapy: No Age/Risk Factor Scoring CHADSVASC: CHADSVASC Response (Comments) Value Age Risk Factor Age < 65 years old 0 Gender Risk Factor Male 0 Hx of CHF No 0 Hx of HTN No 0 Hx of Stroke/TIA/or VTE No 0 Hx of Diabetes No 0 Hx of Vascular Disease No 0 Total 0 Treatment Treatment ordered: NONE Initial Treatment Plan 1. Patient was admitted on a [9.39] status. 2. Complete history was obtained. 3. With patients permission, family will be contacted and database will be expanded. 4. Patients medication regimen will be reviewed and changed accordingly. 5. Patient will be provided with protected environment. 6. Patient will be treated with individual, group, and milieu therapies. 7. Patient will receive supportive psych-education. 8. Discharge planning will commence immediately. 9. Outpatient follow-up treatment will be strongly recommended. 10. The initial treatment plan will focus initially on: * Depression. * Risk for suicide. ESTIMATED LENGTH OF STAY: - DAYS. TIME SPENT COUNSELING AND COORDINATING INITIAL CARE: minutes. Vital Signs Vital Signs Date Time Temp Pulse Resp B/P (MAP) Pulse Ox O2 Delivery O2 Flow Rate FiO2 04/10/20 06:47 98.9 78 18 89/58 (68) 97 Room Air Laboratory Data 24H Labs Laboratory Tests 2 04/09/20 13:59: Coronavirus (COVID-19)(PCR) NEGATIVE, Influenza Type A (RT-PCR) NEGATIVE, Influenza Type B (RT-PCR) NEGATIVE, Respiratory Syncytial Virus (PCR) NEGATIVE 04/09/20 17:40: Total Creatine Kinase 100, Creatine Kinase MB 1.4, Creatine Kinase MB Relative Index 1.40, Troponin I < 0.02 04/09/20 23:40: Total Creatine Kinase 91, Creatine Kinase MB 1.3, Creatine Kinase MB Relative Index 1.43, Troponin I < 0.02 Medications Scheduled Amitriptyline HCl (Amitriptyline HCl) 50 Mg Tablet, 100 MG PO QHS, (Reported) TAKE WITH 25MG TABS. TOTAL OF 125MG QHS Amitriptyline HCl (Amitriptyline HCl) 25 Mg Tablet, 25 MG PO QHS, (Reported) TAKE WITH 50MG TABS. TOTAL OF 125MG QHS Amlodipine Besylate/Valsartan (Amlodipine-Valsartan 5-160 mg) 1 Each Tablet, 1 TAB PO DAILY, (Reported) Aspirin (Aspirin EC) 81 Mg Tablet.dr, 81 MG PO DAILY, (Reported) Atorvastatin Calcium (Atorvastatin Calcium) 40 Mg Tablet, 40 MG PO DAILY, (Reported) Buspirone HCl (Buspirone HCl) 10 Mg Tablet, 10 MG PO BID, (Reported) Gabapentin (Gabapentin) 300 Mg Capsule, 600 MG PO QHS, (Reported) Ipratropium/Albuterol Sulfate (Combivent Respimat 20-100 Mcg) 4 Gm Mist.inhal, 1 PUFF INH DAILY, (Reported) Morphine Sulfate (Morphine Sulfate ER) 15 Mg Tablet.er, 15 MG PO Q8H, (Reported) Omeprazole (Omeprazole) 40 Mg Capsule.dr, 40 MG PO DAILY, (Reported) Propranolol HCl (Propranolol HCl) 20 Mg Tablet, 20 MG PO TID, (Reported) Sucralfate (Sucralfate) 1 Gm Tablet, 1 GM PO AC, (Reported) Scheduled PRN Albuterol Sulfate (Proair Hfa) 8.5 Gm Hfa.aer.ad, 2 PUFF INH Q4H PRN for wheezing, (Reported) Oxycodone HCl/Acetaminophen (Oxycodone-Acetaminophen 10-325) 1 Each Tablet, 1 TAB PO Q6H PRN for PAIN, (Reported) Allergies Coded Allergies: Penicillins (Verified Allergy, Intermediate, HIVES, 04/09/20) GIFTY BENITEZ MD Apr 10, 2020 07:50
[2020-04-10] MEDS ORDERED: MORPHINE 15 MG SA TAB PO SCH (08:00)
[2020-04-10] MEDS: PROPRANOLOL 20 MG TAB PO SCH ×3 (08:22→21:32)
[2020-04-10] MEDS: SUCRALFATE 1 GM TAB PO SCH ×2 (11:18→16:31)
[2020-04-10] MEDS: ATORVASTATIN 20 MG TAB PO SCH (11:18)
[2020-04-10] MEDS: OMEPRAZOLE 20 MG CAP PO SCH (11:19)
[2020-04-10] MEDS: ASPIRIN 81MG ENTERIC TABLET PO SCH (11:19)
[2020-04-10] MEDS: MORPHINE 15 MG SA TAB PO SCH ×2 (11:20→21:33)
[2020-04-10] MEDS: NICOTINE 21MG/24HR 1 EA TRANSDERMAL TD SCH (11:20)
--- NOTE | 2020-04-10 12:15 | HPEPDOC ---
[facility] [place] Medical History & Physical Date of Admission Apr 09, 2020 Date of Service: Apr 10, 2020 History and Physical CHIEF COMPLAINT: Unspecified psychotic disorder HISTORY OF PRESENT ILLNESS: Mr. Akbar is a 55-year-old male with depression and generalized anxiety who is in the inpatient mental health unit for unspecified psychotic disorder. Yesterday evening, he was complaining of chest pain. Chest pain was dull and intermittent. Worse with palpation. EKG was negative and troponins are negative 2. Most likely muscle skeletal or costochondritis. Today, chest pain has improved and is less painful. Otherwise, he was concerned about his medications. He wanted his morphine 3 times a day and gabapentin twice a day. Looking through his prescriptions and calling his pharmacy in [place], his morphine was decreased to 2 times a day and gabapentin was only at bedtime. PAST MEDICAL HISTORY: 1. Chronic low back pain 2. Right arm pain secondary to biceps tendon rupture status post repair at [facility] 3. Macrocytic anemia 4. Pulmonary nodules 5. Vitamin D deficiency 6. Right and left torn rotator cuff 7. Depression 8. Hypertension 9. Generalized anxiety PAST SURGICAL HISTORY: 1. Bicep repair on the right side. 2. Rotator cuff tear repair on left and right 3. Colonoscopy SOCIAL HISTORY: Tobacco use: Current smoker ETOH: Denies Illicit drug use: Denies FAMILY HISTORY: Father: at 55 years old, history of liver cancer Mother: Ceased at 72 years old history of breast cancer ALLERGIES: Please see below. REVIEW OF SYSTEMS: CONSTITUTIONAL: Denies any fever or chills. ENT: Reports sore throat this morning that has gotten better throughout the day. May be secondary to postnasal drip. RESPIRATORY: Denies shortness of breath. CARDIOVASCULAR: Reports chest pain but improved from last night. GASTROINTESTINAL: Reports a little of abdominal pain. Denies diarrhea. GENITOURINARY: Denies dysuria. CUTANEOUS: Denies rashes. MUSCULOSKELETAL: Denies muscle weakness. NEUROLOGICAL: Denies paresthesias. PSYCHOLOGICAL: Reports anxiety. Denies depression. HOME MEDICATIONS: Please see below. PHYSICAL EXAMINATION: VITAL SIGNS: Temperature 98.9, pulse 92, respiratory rate 16, blood pressure 122/83, pulse oximetry 97 % on room air. GENERAL: Comfortable, in no apparent distress. HEENT: Head normocephalic/atraumatic, EOMI, sclera clear. NECK: Supple. RESPIRATORY: Lungs clear to auscultation bilaterally, no rales, wheeze or rhonchi. CARDIOVASCULAR: Regular rate and rhythm. ABDOMEN: Soft, nontender, no guarding or rebound tenderness. Normal bowel sounds. MUSCLE SKELETAL: Muscle strength 5/5 in all extremities. NEUROLOGICAL: CN 312 grossly intact, no focal deficits noted. PSYCHOLOGICAL: Mildly anxious LABORATORY DATA: See below. IMAGING: Radiologist interpretation Chest x-ray No acute pulmonary disease. ASSESSMENT AND PLAN: 1. Unspecified psychotic disorder Being managed in the inpatient mental health unit 2. Atypical chest pain Troponins negative 2 and EKG not suggestive of ischemia Pain may be muscle skeletal versus costochondritis Recommended analgesia to control the pain Continue acetaminophen as needed for pain and twice a day morphine 3. Chronic pain Continue morphine twice a day and gabapentin at bedtime 4. Hyperlipidemia Continue atorvastatin Thank you for consulting us. We will sign off at this time. If is any further questions or concerns please do not hesitate to reconsult us. Vital Signs Vital Signs Date Time Temp Pulse Resp B/P (MAP) Pulse Ox O2 Delivery O2 Flow Rate FiO2 04/10/20 08:22 92 122/83 04/10/20 06:47 98.9 18 97 Room Air Laboratory Data Labs 24H Laboratory Tests 2 04/09/20 13:59: Coronavirus (COVID-19)(PCR) NEGATIVE, Influenza Type A (RT-PCR) NEGATIVE, Influenza Type B (RT-PCR) NEGATIVE, Respiratory Syncytial Virus (PCR) NEGATIVE 04/09/20 17:40: Total Creatine Kinase 100, Creatine Kinase MB 1.4, Creatine Kinase MB Relative Index 1.40, Troponin I < 0.02 04/09/20 23:40: Total Creatine Kinase 91, Creatine Kinase MB 1.3, Creatine Kinase MB Relative Index 1.43, Troponin I < 0.02 Home Medications Scheduled Amitriptyline HCl (Amitriptyline HCl) 50 Mg Tablet, 100 MG PO QHS TAKE WITH 25MG TABS. TOTAL OF 125MG QHS Amitriptyline HCl (Amitriptyline HCl) 25 Mg Tablet, 25 MG PO QHS TAKE WITH 50MG TABS. TOTAL OF 125MG QHS Amlodipine Besylate/Valsartan (Amlodipine-Valsartan 5-160 mg) 1 Each Tablet, 1 TAB PO DAILY Aspirin (Aspirin EC) 81 Mg Tablet.dr, 81 MG PO DAILY Atorvastatin Calcium (Atorvastatin Calcium) 40 Mg Tablet, 40 MG PO DAILY Buspirone HCl (Buspirone HCl) 10 Mg Tablet, 10 MG PO BID Gabapentin (Gabapentin) 300 Mg Capsule, 600 MG PO QHS Ipratropium/Albuterol Sulfate (Combivent Respimat 20-100 Mcg) 4 Gm Mist.inhal, 1 PUFF INH DAILY Morphine Sulfate (Morphine Sulfate ER) 15 Mg Tablet.er, 15 MG PO Q8H Omeprazole (Omeprazole) 40 Mg Capsule.dr, 40 MG PO DAILY Propranolol HCl (Propranolol HCl) 20 Mg Tablet, 20 MG PO TID Sucralfate (Sucralfate) 1 Gm Tablet, 1 GM PO AC Scheduled PRN Albuterol Sulfate (Proair Hfa) 8.5 Gm Hfa.aer.ad, 2 PUFF INH Q4H PRN for wheezing Oxycodone HCl/Acetaminophen (Oxycodone-Acetaminophen 10-325) 1 Each Tablet, 1 TAB PO Q6H PRN for PAIN Allergies Coded Allergies: Penicillins (Verified Allergy, Intermediate, HIVES, 04/09/20) A-FIB/CHADSVASC A-FIB History Current/History of A-Fib/PAF?: No ISAAC LOWERY DO Apr 10, 2020 09:21
--- NOTE | 2020-04-10 18:24 | MHIPNPDOC ---
[facility] Progress Note Progress Note DATE OF SERVICE: 04/10/20 HISTORY: 55-year-old male admitted with various vague complaints of somatic changes which, on reviewing his past charts seem to be repeated.. VITAL SIGNS: See below. NEW TEST RESULTS: Chest x-ray is clear. CURRENT MEDICATIONS: See below. MENTAL STATUS EXAMINATION: Patient is a 55-year old male, who is pleasant and denies any significant symptoms, including the ones he had in the emergency room. Speech: Is normal. Language skills are. No gross abnormality. Thought processes including: No gross abnormality. Thought content:. Denies all symptoms. Abstract reasoning, and computation: Able to abstract. Description of associations:. No loose association. Description of abnormal or psychotic thoughts: Denies psychotic thoughts at this time. Judgment: Fair. Insight:. Fair to poor. Orientation: 3. Recent and remote memory: Intact. Attention span and concentration:. No abnormality. Language:. No gross abnormality. Fund of knowledge: Reasonable. Mood: Good. Affect:. Congruent. DIAGNOSES: 1. Atypical psychosis. 2. Multiple medication. 3. None. ASSESSMENT: As per Traci Palmer had experienced this case before. An odd presentation MANAGEMENT PLAN: As above. TIME SPENT:, 30 minutes. Vital Signs Vital Signs Date Time Temp Pulse Resp B/P (MAP) Pulse Ox O2 Delivery O2 Flow Rate FiO2 04/10/20 15:53 93 124/83 04/10/20 11:20 16 04/10/20 06:47 98.9 97 Room Air Laboratory Data 24H Labs Laboratory Tests 2 04/09/20 23:40: Total Creatine Kinase 91, Creatine Kinase MB 1.3, Creatine Kinase MB Relative Index 1.43, Troponin I < 0.02 Current Medications Current Medications Medications (Trade) Dose Ordered Sig/Shanell Route PRN Reason Start Time Stop Time Status Last Admin Dose Admin Acetaminophen (Tylenol Tab) 650 mg Q6HP PRN PO HEADACHE or DISCOMFORT 04/09/20 15:35 Al Hydrox/Mg Hydrox/Simethicone (Mylanta) 30 ml Q4HP PRN PO HEARTBURN/INDIGESTION 04/09/20 15:35 Albuterol/ Ipratropium (Combivent Respimat 100-20mcg) 1 puff RQ6H INH 04/09/20 20:00 04/10/20 13:26 Amitriptyline HCl (Elavil) 25 mg QHS PO 04/10/20 21:00 Amitriptyline HCl (Elavil) 100 mg QHS PO 04/10/20 21:00 Aspirin (Ecotrin) 81 mg DAILY PO 04/10/20 09:00 04/10/20 11:19 Atorvastatin Calcium (Lipitor) 40 mg DAILY PO 04/10/20 09:00 04/10/20 11:18 Gabapentin (Neurontin) 600 mg QHS PO 04/09/20 21:00 04/09/20 20:30 Home Med (Med Rec Complete!) ASDIRECTED XX 04/09/20 14:35 04/09/20 14:39 DC Magnesium Hydroxide (Milk Of Magnesia) 30 ml DAILYPRN PRN PO CONSTIPATION 04/09/20 15:35 Morphine Sulfate (Ms Contin) 15 mg BID PO 04/10/20 09:00 04/10/20 11:20 Morphine Sulfate (Ms Contin) 15 mg Q8H PO 04/10/20 08:00 04/10/20 10:23 DC Nicotine (Nicoderm Cq 21mg) 1 patch DAILY TD 04/10/20 09:00 04/10/20 11:20 Olanzapine (ZyPREXA ZYDIS) 5 mg Q4HP PRN PO AGITATION 04/09/20 15:35 04/10/20 04:34 Omeprazole (PriLOSEC) 40 mg DAILY PO 04/10/20 09:00 04/10/20 11:19 Propranolol HCl (Inderal) 20 mg TID PO 04/09/20 21:00 04/10/20 15:53 Sucralfate (Carafate) 1 gm AC PO 04/10/20 12:00 04/10/20 16:31 Trazodone HCl (Desyrel) 50 mg QHSP PRN PO INSOMNIA 04/09/20 15:35 Allergies Coded Allergies: Penicillins (Verified Allergy, Intermediate, HIVES, 04/09/20) GIFTY BENITEZ MD Apr 10, 2020 18:24
[2020-04-10 18:39] VITALS: BP 124/83
[2020-04-10] MEDS: AMITRIPTYLINE 50 MG TAB PO SCH (21:30)
[2020-04-10] MEDS: AMITRIPTYLINE 25MG TABLET PO SCH (21:30)
[2020-04-10] MEDS: GABAPENTIN 300 MG CAP PO SCH (21:32)
[2020-04-11] MEDS: COMBIVENT RESPIMAT 100-20MCG INHALER 4GM INH SCH ×4 (02:00→20:10)
[2020-04-11 06:24] VITALS: BP 113/59
[2020-04-11] MEDS: SUCRALFATE 1 GM TAB PO SCH ×3 (07:38→17:23)
[2020-04-11] MEDS: OMEPRAZOLE 20 MG CAP PO SCH (08:30)
[2020-04-11] MEDS: PROPRANOLOL 20 MG TAB PO SCH ×3 (08:30→20:13)
[2020-04-11] MEDS: ASPIRIN 81MG ENTERIC TABLET PO SCH (08:30)
[2020-04-11] MEDS: MORPHINE 15 MG SA TAB PO SCH ×2 (08:30→20:12)
[2020-04-11] MEDS: NICOTINE 21MG/24HR 1 EA TRANSDERMAL TD SCH (08:31)
[2020-04-11] MEDS: ATORVASTATIN 20 MG TAB PO SCH (08:31)
--- NOTE | 2020-04-11 12:30 | MHIPNPDOC ---
[facility] Progress Note Progress Note DATE OF SERVICE: 04/11/20 HISTORY: Today is Day 3 for this patient's admission. He is a 55-year-old , Unemployed, Domiciled, admitted to inpatient mental health unit for unspecified psychotic disorder. He brought to ED for making SI and bizarre statements to his . Pt stated he was looking for Drain-O to drink. VITAL SIGNS: See below. CURRENT MEDICATIONS: See below. MENTAL STATUS EXAMINATION: He is a 55-year-old , Unemployed, Domiciled, admitted to inpatient mental health unit for unspecified psychotic disorder Speech: Is normal rate tone and volume Language skills are. No gross abnormality. Thought processes including: No gross abnormality. Thought content:. Denies all symptoms. Abstract reasoning, and computation: Able to abstract. Description of associations:. No loose association. Description of abnormal or psychotic thoughts: Denies psychotic thoughts at this time, observed to be delusion "I thought I screwed up, I am breathing and it's too heavy, the object oriented programmer is coming to get me. I am running out of air, I killed myself." Judgment: poor Insight:. Fair to poor. Orientation: 3. Recent and remote memory: Intact. Attention span and concentration:. No abnormality. Language:. No gross abnormality. Fund of knowledge: Reasonable. Mood: bizarre Affect:. Congruent. DIAGNOSES: Unspecified Psychotic Disorder Generalized Anxiety Disorder Nicotine Use Disorder ASSESSMENT: Decrease Trazodone to 25 mg, Zyprexa 2.5 mg at HS. All other medications continued. MANAGEMENT PLAN: Patient is nonsensical and bizarre. He states "I screwed up, I am breathing and it's too heavy. The object oriented programmer is coming to get me. I am running out of air. I killed myself." Patient then picks up the phone and asks to call his . He asks her, "Do you want me to stop calling you? I killed myself, I am stopping at the house. I am still breathing." His asked if staff could limit his calls to her, she states he called her numerous times yesterday and numerous times today. He states in the interview. "I am not depressed now I am depressed but I will quit breathing because I am ." TIME SPENT: 25 minutes. Vital Signs Vital Signs Date Time Temp Pulse Resp B/P (MAP) Pulse Ox O2 Delivery O2 Flow Rate FiO2 04/11/20 08:30 16 04/11/20 08:30 98 118/72 04/11/20 06:24 98.8 97 Room Air Current Medications Current Medications Medications (Trade) Dose Ordered Sig/Shanell Route PRN Reason Start Time Stop Time Status Last Admin Dose Admin Acetaminophen (Tylenol Tab) 650 mg Q6HP PRN PO HEADACHE or DISCOMFORT 04/09/20 15:35 Al Hydrox/Mg Hydrox/Simethicone (Mylanta) 30 ml Q4HP PRN PO HEARTBURN/INDIGESTION 04/09/20 15:35 Albuterol/ Ipratropium (Combivent Respimat 100-20mcg) 1 puff RQ6H INH 04/09/20 20:00 04/11/20 07:38 Amitriptyline HCl (Elavil) 25 mg QHS PO 04/10/20 21:00 04/10/20 21:30 Amitriptyline HCl (Elavil) 100 mg QHS PO 04/10/20 21:00 04/10/20 21:30 Aspirin (Ecotrin) 81 mg DAILY PO 04/10/20 09:00 04/11/20 08:30 Atorvastatin Calcium (Lipitor) 40 mg DAILY PO 04/10/20 09:00 04/11/20 08:31 Gabapentin (Neurontin) 600 mg QHS PO 04/09/20 21:00 04/10/20 21:32 Home Med (Med Rec Complete!) ASDIRECTED XX 04/09/20 14:35 04/09/20 14:39 DC Magnesium Hydroxide (Milk Of Magnesia) 30 ml DAILYPRN PRN PO CONSTIPATION 04/09/20 15:35 Morphine Sulfate (Ms Contin) 15 mg BID PO 04/10/20 09:00 04/11/20 08:30 Morphine Sulfate (Ms Contin) 15 mg Q8H PO 04/10/20 08:00 04/10/20 10:23 DC Nicotine (Nicoderm Cq 21mg) 1 patch DAILY TD 04/10/20 09:00 04/11/20 08:31 Olanzapine (ZyPREXA ZYDIS) 5 mg Q4HP PRN PO AGITATION 04/09/20 15:35 04/10/20 04:34 Omeprazole (PriLOSEC) 40 mg DAILY PO 04/10/20 09:00 04/11/20 08:30 Propranolol HCl (Inderal) 20 mg TID PO 04/09/20 21:00 04/11/20 08:30 Sucralfate (Carafate) 1 gm AC PO 04/10/20 12:00 04/11/20 07:38 Trazodone HCl (Desyrel) 50 mg QHSP PRN PO INSOMNIA 04/09/20 15:35 Allergies Coded Allergies: Penicillins (Verified Allergy, Intermediate, HIVES, 04/09/20) ANTONY ZALDIVAR NP Apr 11, 2020 12:15
[2020-04-11 16:23] VITALS: BP 150/94
[2020-04-11] MEDS: GABAPENTIN 300 MG CAP PO SCH (20:11)
[2020-04-11] MEDS: AMITRIPTYLINE 50 MG TAB PO SCH (20:12)
[2020-04-11] MEDS: AMITRIPTYLINE 25MG TABLET PO SCH (20:13)
[2020-04-11 20:46] VITALS: BP 148/98
[2020-04-11] MEDS ORDERED: OLANZapine 2.5MG TABLET PO SCH (21:00)
[2020-04-12] MEDS: COMBIVENT RESPIMAT 100-20MCG INHALER 4GM INH SCH ×4 (02:00→21:08)
[2020-04-12 06:03] VITALS: BP 106/67
[2020-04-12] MEDS: SUCRALFATE 1 GM TAB PO SCH ×3 (07:21→16:58)
[2020-04-12] MEDS: ASPIRIN 81MG ENTERIC TABLET PO SCH (08:18)
[2020-04-12] MEDS: NICOTINE 21MG/24HR 1 EA TRANSDERMAL TD SCH (08:18)
[2020-04-12] MEDS: MORPHINE 15 MG SA TAB PO SCH ×2 (08:19→21:09)
[2020-04-12] MEDS: OMEPRAZOLE 20 MG CAP PO SCH (08:19)
[2020-04-12] MEDS: PROPRANOLOL 20 MG TAB PO SCH ×3 (08:19→21:08)
[2020-04-12] MEDS: ATORVASTATIN 20 MG TAB PO SCH (08:20)
[2020-04-12] MEDS: OLANZapine 2.5MG TABLET PO SCH ×2 (12:49→21:08)
--- NOTE | 2020-04-12 14:09 | MHIPNPDOC ---
[facility] Progress Note Progress Note DATE OF SERVICE: 04/12/20 HISTORY: Today is Day 4 for this patient's admission. He is a 55-year-old , Unemployed, Domiciled, admitted to inpatient mental health unit for unspecified psychotic disorder. He brought to ED for making SI and bizarre statements to his . Pt stated he was looking for Drain-O to drink. He remains delusional and bizarre in his statements. VITAL SIGNS: See below. CURRENT MEDICATIONS: See below. MENTAL STATUS EXAMINATION: He is a 55-year-old , Unemployed, Domiciled, admitted to inpatient mental health unit for unspecified psychotic disorder Speech: Is normal rate tone and volume Language skills are. No gross abnormality. Thought processes including: No gross abnormality. Thought content: Denies all symptoms. Abstract reasoning, and computation: Able to abstract. Description of associations: loose association. Description of abnormal or psychotic thoughts: delusional statements that he murdered himself Judgment: impaired Insight: Impaired Orientation: 3. Recent and remote memory: fair Attention span and concentration:. No abnormality. Language:. No gross abnormality. Fund of knowledge: Reasonable. Mood: Euthymic Affect:. Congruent, Cordial DIAGNOSES: Unspecified Psychotic Disorder Generalized Anxiety Disorder Nicotine Use Disorder ASSESSMENT: Patient found walking in the hallway, he is alert and oriented to person, place, time, but not situation. He is able to name the President, the Hospital, the town and zip code. He is making delusional and bizarre statements today. He said "I had wild dreams to kill myself, I pulled my mouth over my head, it was murder, I am waiting for the Police, I am waiting for them, I messed myself up don't you see? I attempted murder on myself and I need to speak to the Police." Patient remains cognitively aware of his surroundings but makes bizarre statements and attempts to prove that he is . When made aware that he is alive, he states "Yes it is strange that I am talking but I am , I murdered myself." MANAGEMENT PLAN: Increase Zyprexa 2.5 mg in AM and HS. All other medications continued. Will attempt MOCA screening for dementia TIME SPENT: 25 minutes. Vital Signs Vital Signs Date Time Temp Pulse Resp B/P (MAP) Pulse Ox O2 Delivery O2 Flow Rate FiO2 04/12/20 08:19 18 04/12/20 08:19 104 162/102 04/12/20 06:03 97.4 99 Room Air Current Medications Current Medications Medications (Trade) Dose Ordered Sig/Shanell Route PRN Reason Start Time Stop Time Status Last Admin Dose Admin Acetaminophen (Tylenol Tab) 650 mg Q6HP PRN PO HEADACHE or DISCOMFORT 04/09/20 15:35 Al Hydrox/Mg Hydrox/Simethicone (Mylanta) 30 ml Q4HP PRN PO HEARTBURN/INDIGESTION 04/09/20 15:35 Albuterol Sulfate (Proventil, Ventolin Hfa) 2 puff Q4H PRN INH wheezing 04/11/20 19:25 Albuterol/ Ipratropium (Combivent Respimat 100-20mcg) 1 puff RQ6H INH 04/09/20 20:00 04/12/20 07:21 Amitriptyline HCl (Elavil) 25 mg QHS PO 04/10/20 21:00 04/11/20 20:13 Amitriptyline HCl (Elavil) 100 mg QHS PO 04/10/20 21:00 04/11/20 20:12 Aspirin (Ecotrin) 81 mg DAILY PO 04/10/20 09:00 04/12/20 08:18 Atorvastatin Calcium (Lipitor) 40 mg DAILY PO 04/10/20 09:00 04/12/20 08:20 Gabapentin (Neurontin) 600 mg QHS PO 04/09/20 21:00 04/11/20 20:11 Home Med (Med Rec Complete!) ASDIRECTED XX 04/09/20 14:35 04/09/20 14:39 DC Magnesium Hydroxide (Milk Of Magnesia) 30 ml DAILYPRN PRN PO CONSTIPATION 04/09/20 15:35 Morphine Sulfate (Ms Contin) 15 mg BID PO 04/10/20 09:00 04/12/20 08:19 Morphine Sulfate (Ms Contin) 15 mg Q8H PO 04/10/20 08:00 04/10/20 10:23 DC Nicotine (Nicoderm Cq 21mg) 1 patch DAILY TD 04/10/20 09:00 04/12/20 08:18 Olanzapine (ZyPREXA ZYDIS) 5 mg Q4HP PRN PO AGITATION 04/09/20 15:35 04/10/20 04:34 Olanzapine (ZyPREXA) 2.5 mg BID PO 04/12/20 09:00 04/12/20 12:49 Olanzapine (ZyPREXA) 2.5 mg QHS PO 04/11/20 21:00 04/12/20 12:38 DC 04/11/20 20:13 Omeprazole (PriLOSEC) 40 mg DAILY PO 04/10/20 09:00 04/12/20 08:19 Propranolol HCl (Inderal) 20 mg TID PO 04/09/20 21:00 04/12/20 08:19 Sucralfate (Carafate) 1 gm AC PO 04/10/20 12:00 04/12/20 12:01 Trazodone HCl (Desyrel) 25 mg QHSP PRN PO INSOMNIA 04/11/20 12:05 Trazodone HCl (Desyrel) 50 mg QHSP PRN PO INSOMNIA 04/09/20 15:35 04/11/20 12:07 DC Allergies Coded Allergies: Penicillins (Verified Allergy, Intermediate, HIVES, 04/09/20) ANTONY ZALDIVAR NP Apr 12, 2020 14:08
[2020-04-12 16:49] VITALS: BP 132/97
[2020-04-12] MEDS: OLANZapine ORAL DISINTEGRATING TAB 5MG PO PRN (18:13)
[2020-04-12] MEDS: AMITRIPTYLINE 50 MG TAB PO SCH (21:07)
[2020-04-12] MEDS: AMITRIPTYLINE 25MG TABLET PO SCH (21:07)
[2020-04-12] MEDS: GABAPENTIN 300 MG CAP PO SCH (21:08)
[2020-04-13] MEDS: OLANZapine ORAL DISINTEGRATING TAB 5MG PO PRN ×2 (00:36→11:08)
[2020-04-13] MEDS: COMBIVENT RESPIMAT 100-20MCG INHALER 4GM INH SCH ×4 (02:00→19:57)
[2020-04-13] MEDS: SUCRALFATE 1 GM TAB PO SCH ×3 (07:30→17:41)
[2020-04-13] MEDS: NICOTINE 21MG/24HR 1 EA TRANSDERMAL TD SCH (08:16)
[2020-04-13] MEDS: OMEPRAZOLE 20 MG CAP PO SCH (08:17)
[2020-04-13] MEDS: ATORVASTATIN 20 MG TAB PO SCH (08:17)
[2020-04-13] MEDS: OLANZapine 2.5MG TABLET PO SCH ×2 (08:17→20:03)
[2020-04-13] MEDS: PROPRANOLOL 20 MG TAB PO SCH ×3 (08:17→20:06)
[2020-04-13] MEDS: ASPIRIN 81MG ENTERIC TABLET PO SCH (08:17)
[2020-04-13] MEDS: MORPHINE 15 MG SA TAB PO SCH ×2 (08:18→20:02)
[2020-04-13] MEDS ORDERED: LORazepam 1 MG TAB PO STA (11:22)
--- NOTE | 2020-04-13 16:24 | MHIPNPDOC ---
[facility] Progress Note Progress Note DATE OF SERVICE: 04/13/20 ISTORY: Today is Day 4 for this patient's admission. He is a 55-year-old , Unemployed, Domiciled, admitted to inpatient mental health unit for unspecified psychotic disorder. He brought to ED for making SI and bizarre statements to his . Pt stated he was looking for Drain-O to drink. He remains delusional and bizarre in his statements. VITAL SIGNS: See below. CURRENT MEDICATIONS: See below. MENTAL STATUS EXAMINATION: He is a 55-year-old , Unemployed, Domiciled, admitted to inpatient mental health unit for unspecified psychotic disorder Speech: Is normal rate tone and volume Language skills are. No gross abnormality. Thought processes including: disorganized Thought content: denies depression and suicidal thinking. Abstract reasoning, and computation: Able to abstract. Description of associations: loose association. Description of abnormal or psychotic thoughts: delusional statements that he murdered himself Judgment: impaired Insight: Impaired Orientation: 3. Recent and remote memory: fair Attention span and concentration:. No abnormality. Language:. expansive Fund of knowledge: Reasonable. Mood: Euthymic Affect:. Congruent, Cordial DIAGNOSES: Unspecified Psychotic Disorder Generalized Anxiety Disorder Nicotine Use Disorder ASSESSMENT: Patient has fluctuating thought processes. In today's interview patient apologizes for making strange statements yesterday. When he asked what strange statements he is referring to he states, "I was saying crazy things like I murdered myself and I was dreaming that the police were here to come get me because I killed myself, and I know that I didn't murder myself, because I am talking to you. I was talking about the Police coming to get me and put me in a straight jacket to take me to [place]" Patient was alert and oriented for most of the interview and then states, "I know I am not going to [place] because the police were here last night and told me I wasn't going anywhere and that I needed to stay here." Reinforced with the patient that the police were not on the unit. Patient had been given both Zyprexa 5 mg and subsequently Ativan 1 mg for agitation earlier in the morning. He was going into other peer's room, was not redirectable and continued to be agitated. He continues to make delusional statements and is not appropriate for discharge. A neuro-consult was initially ordered, but have received information that patient has been seen by neuro, was non-compliant with treatment during their services . Patient's cognition fluctuates and he has disorganized thoughts, at times memory impairment, labile affect, observed with delusions and this presents itself more as delirium at times, rather than a psychiatric condition as his delusions waxes and wanes MANAGEMENT PLAN: Increase Zyprexa 2.5 mg in AM and HS. All other medications continued. TIME SPENT: 25 minutes. Vital Signs Vital Signs Date Time Temp Pulse Resp B/P (MAP) Pulse Ox O2 Delivery O2 Flow Rate FiO2 04/13/20 15:59 80 100/56 04/13/20 08:18 16 04/12/20 16:49 98.4 99 Room Air Current Medications Current Medications Medications (Trade) Dose Ordered Sig/Shanell Route PRN Reason Start Time Stop Time Status Last Admin Dose Admin Acetaminophen (Tylenol Tab) 650 mg Q6HP PRN PO HEADACHE or DISCOMFORT 04/09/20 15:35 Al Hydrox/Mg Hydrox/Simethicone (Mylanta) 30 ml Q4HP PRN PO HEARTBURN/INDIGESTION 04/09/20 15:35 Albuterol Sulfate (Proventil, Ventolin Hfa) 2 puff Q4H PRN INH wheezing 04/11/20 19:25 Albuterol/ Ipratropium (Combivent Respimat 100-20mcg) 1 puff RQ6H INH 04/09/20 20:00 04/13/20 14:03 Amitriptyline HCl (Elavil) 25 mg QHS PO 04/10/20 21:00 04/12/20 21:07 Amitriptyline HCl (Elavil) 100 mg QHS PO 04/10/20 21:00 04/12/20 21:07 Aspirin (Ecotrin) 81 mg DAILY PO 04/10/20 09:00 04/13/20 08:17 Atorvastatin Calcium (Lipitor) 40 mg DAILY PO 04/10/20 09:00 04/13/20 08:17 Gabapentin (Neurontin) 600 mg QHS PO 04/09/20 21:00 04/12/20 21:08 Home Med (Med Rec Complete!) ASDIRECTED XX 04/09/20 14:35 04/09/20 14:39 DC Lorazepam (Ativan) 1 mg STAT STAT PO 04/13/20 11:22 04/13/20 11:24 DC 04/13/20 11:32 Magnesium Hydroxide (Milk Of Magnesia) 30 ml DAILYPRN PRN PO CONSTIPATION 04/09/20 15:35 Morphine Sulfate (Ms Contin) 15 mg BID PO 04/10/20 09:00 04/13/20 08:18 Morphine Sulfate (Ms Contin) 15 mg Q8H PO 04/10/20 08:00 04/10/20 10:23 DC Nicotine (Nicoderm Cq 21mg) 1 patch DAILY TD 04/10/20 09:00 04/13/20 08:16 Olanzapine (ZyPREXA ZYDIS) 5 mg Q4HP PRN PO AGITATION 04/09/20 15:35 04/13/20 11:08 Olanzapine (ZyPREXA) 2.5 mg BID PO 04/12/20 09:00 04/13/20 08:17 Olanzapine (ZyPREXA) 2.5 mg QHS PO 04/11/20 21:00 04/12/20 12:38 DC 04/11/20 20:13 Omeprazole (PriLOSEC) 40 mg DAILY PO 04/10/20 09:00 04/13/20 08:17 Propranolol HCl (Inderal) 20 mg TID PO 04/09/20 21:00 04/13/20 08:17 Sucralfate (Carafate) 1 gm AC PO 04/10/20 12:00 04/13/20 12:00 Trazodone HCl (Desyrel) 25 mg QHSP PRN PO INSOMNIA 04/11/20 12:05 Trazodone HCl (Desyrel) 50 mg QHSP PRN PO INSOMNIA 04/09/20 15:35 04/11/20 12:07 DC Allergies Coded Allergies: Penicillins (Verified Allergy, Intermediate, HIVES, 04/09/20) ANTONY ZALDIVAR NP Apr 13, 2020 16:10
[2020-04-13 16:31] VITALS: BP 100/56
[2020-04-13] MEDS: traZODone 25MG PER 1/2 TABLET PO PRN (20:02)
[2020-04-13] MEDS: GABAPENTIN 300 MG CAP PO SCH (20:03)
[2020-04-13] MEDS: AMITRIPTYLINE 25MG TABLET PO SCH (20:03)
[2020-04-13] MEDS: AMITRIPTYLINE 50 MG TAB PO SCH (20:06)
[2020-04-14] MEDS: COMBIVENT RESPIMAT 100-20MCG INHALER 4GM INH SCH ×4 (02:00→20:27)
[2020-04-14 06:26] VITALS: BP 120/76
[2020-04-14] MEDS: SUCRALFATE 1 GM TAB PO SCH ×3 (07:32→17:24)
[2020-04-14] MEDS: OLANZapine 5 MG TAB PO SCH ×2 (09:28→20:28)
[2020-04-14] MEDS: PROPRANOLOL 20 MG TAB PO SCH ×3 (09:29→20:39)
[2020-04-14] MEDS: ASPIRIN 81MG ENTERIC TABLET PO SCH (09:29)
[2020-04-14] MEDS: MORPHINE 15 MG SA TAB PO SCH ×2 (09:29→20:29)
[2020-04-14] MEDS: NICOTINE 21MG/24HR 1 EA TRANSDERMAL TD SCH (09:30)
[2020-04-14] MEDS: ATORVASTATIN 20 MG TAB PO SCH (09:30)
[2020-04-14] MEDS: OMEPRAZOLE 20 MG CAP PO SCH (09:30)
--- NOTE | 2020-04-14 15:21 | MHIPNPDOC ---
[facility] [place] Progress Note Progress Note DATE OF SERVICE: 04/14/20 HISTORY: Today is Day 6 for this patient's admission. He is a 55-year-old , Unemployed, Domiciled, admitted to inpatient mental health unit for unspecified psychotic disorder. He was brought to ED for making SI and bizarre statements to his . Pt stated he was looking for Drain-O to drink. He remains delusional and bizarre in his statements. VITAL SIGNS: See below. CURRENT MEDICATIONS: See below. MENTAL STATUS EXAMINATION: He is a 55-year-old , Unemployed, Domiciled, [facility] Speech: Is normal rate tone and volume Language skills are. No gross abnormality. Thought processes including: disorganized Thought content: denies depression and suicidal thinking. Abstract reasoning, and computation: Able to abstract. Description of associations: loose association. Description of abnormal or psychotic thoughts: delusional statements that he murdered himself Judgment: impaired Insight: Impaired Orientation: 3. Recent and remote memory: fair Attention span and concentration: poor Language: fair Fund of knowledge: Reasonable. Mood: Not good:. Congruent, Cordial DIAGNOSES: Unspecified Psychotic Disorder Generalized Anxiety Disorder Nicotine Use Disorder ASSESSMENT: Reports not good, dont feel good States I feel like I am dying, my hands are getting white. Has back pain x 6 years and is taking Mor phine, states he started on Morphine 3 years ago. Later in the conversation he states he is not dying. Reports that he has bad breathing today patient is observe to be still disorganized and scattered. He still has poor insight MANAGEMENT PLAN: Increase Zyprexa 5 mg in AM and HS. All other medications continued. TIME SPENT: 25 minutes. Vital Signs Vital Signs Date Time Temp Pulse Resp B/P (MAP) Pulse Ox O2 Delivery O2 Flow Rate FiO2 04/14/20 09:29 16 04/14/20 09:29 81 120/76 04/14/20 06:26 98.1 98 Room Air Current Medications Current Medications Medications (Trade) Dose Ordered Sig/Shanell Route PRN Reason Start Time Stop Time Status Last Admin Dose Admin Acetaminophen (Tylenol Tab) 650 mg Q6HP PRN PO HEADACHE or DISCOMFORT 04/09/20 15:35 Al Hydrox/Mg Hydrox/Simethicone (Mylanta) 30 ml Q4HP PRN PO HEARTBURN/INDIGESTION 04/09/20 15:35 Albuterol Sulfate (Proventil, Ventolin Hfa) 2 puff Q4H PRN INH wheezing 04/11/20 19:25 Albuterol/ Ipratropium (Combivent Respimat 100-20mcg) 1 puff RQ6H INH 04/09/20 20:00 04/14/20 14:37 Amitriptyline HCl (Elavil) 25 mg QHS PO 04/10/20 21:00 04/13/20 20:03 Amitriptyline HCl (Elavil) 100 mg QHS PO 04/10/20 21:00 04/13/20 20:06 Aspirin (Ecotrin) 81 mg DAILY PO 04/10/20 09:00 04/14/20 09:29 Atorvastatin Calcium (Lipitor) 40 mg DAILY PO 04/10/20 09:00 04/14/20 09:30 Gabapentin (Neurontin) 600 mg QHS PO 04/09/20 21:00 04/13/20 20:03 Home Med (Med Rec Complete!) ASDIRECTED XX 04/09/20 14:35 04/09/20 14:39 DC Lorazepam (Ativan) 1 mg STAT STAT PO 04/13/20 11:22 04/13/20 11:24 DC 04/13/20 11:32 Magnesium Hydroxide (Milk Of Magnesia) 30 ml DAILYPRN PRN PO CONSTIPATION 04/09/20 15:35 Morphine Sulfate (Ms Contin) 15 mg BID PO 04/10/20 09:00 04/14/20 09:29 Morphine Sulfate (Ms Contin) 15 mg Q8H PO 04/10/20 08:00 04/10/20 10:23 DC Nicotine (Nicoderm Cq 21mg) 1 patch DAILY TD 04/10/20 09:00 04/14/20 09:30 Olanzapine (ZyPREXA ZYDIS) 5 mg Q4HP PRN PO AGITATION 04/09/20 15:35 04/13/20 11:08 Olanzapine (ZyPREXA) 2.5 mg BID PO 04/12/20 09:00 04/14/20 09:02 DC 04/13/20 20:03 Olanzapine (ZyPREXA) 2.5 mg QHS PO 04/11/20 21:00 3/2/21 12:38 DC 04/11/20 20:13 Olanzapine (ZyPREXA) 5 mg BID PO 04/14/20 09:00 04/14/20 09:28 Omeprazole (PriLOSEC) 40 mg DAILY PO 04/10/20 09:00 04/14/20 09:30 Propranolol HCl (Inderal) 20 mg TID PO 04/09/20 21:00 04/14/20 09:29 Sucralfate (Carafate) 1 gm AC PO 04/10/20 12:00 04/14/20 12:00 Trazodone HCl (Desyrel) 25 mg QHSP PRN PO INSOMNIA 04/11/20 12:05 04/13/20 20:02 Trazodone HCl (Desyrel) 50 mg QHSP PRN PO INSOMNIA 04/09/20 15:35 04/11/20 12:07 DC Allergies Coded Allergies: Penicillins (Verified Allergy, Intermediate, HIVES, 04/09/20) ANTONY ZALDIVAR NP Apr 14, 2020 15:21
[2020-04-14 17:23] VITALS: BP 154/90
[2020-04-14] MEDS: traZODone 25MG PER 1/2 TABLET PO PRN (20:27)
[2020-04-14] MEDS: AMITRIPTYLINE 25MG TABLET PO SCH (20:28)
[2020-04-14] MEDS: GABAPENTIN 300 MG CAP PO SCH (20:28)
[2020-04-14] MEDS: OLANZapine ORAL DISINTEGRATING TAB 5MG PO PRN (20:28)
[2020-04-14] MEDS: AMITRIPTYLINE 50 MG TAB PO SCH (20:29)
[2020-04-15] MEDS: COMBIVENT RESPIMAT 100-20MCG INHALER 4GM INH SCH ×4 (02:00→21:15)
[2020-04-15 06:03] VITALS: BP 142/92
[2020-04-15] MEDS: OLANZapine ORAL DISINTEGRATING TAB 5MG PO PRN ×2 (06:37→21:21)
[2020-04-15] MEDS: SUCRALFATE 1 GM TAB PO SCH ×3 (07:45→16:53)
[2020-04-15] MEDS: PROPRANOLOL 20 MG TAB PO SCH ×3 (08:01→21:17)
[2020-04-15] MEDS: OLANZapine 5 MG TAB PO SCH (08:01)
[2020-04-15] MEDS: OMEPRAZOLE 20 MG CAP PO SCH (08:01)
[2020-04-15] MEDS: ASPIRIN 81MG ENTERIC TABLET PO SCH (08:01)
[2020-04-15] MEDS: MORPHINE 15 MG SA TAB PO SCH ×2 (08:01→21:16)
[2020-04-15] MEDS: ATORVASTATIN 20 MG TAB PO SCH (08:01)
[2020-04-15] MEDS: NICOTINE 21MG/24HR 1 EA TRANSDERMAL TD SCH (08:05)
--- NOTE | 2020-04-15 13:01 | MHIPNPDOC ---
[facility] Progress Note Progress Note DATE OF SERVICE: 04/15/20 HISTORY: Today is Day 6 for this patient's admission. He is a 55-year-old , Unemployed, Domiciled, admitted to inpatient mental health unit for unspecified psychotic disorder. He was brought to ED for making SI and bizarre statements to his . Pt stated he was looking for Drain-O to drink. He remains delusional and bizarre in his statements. VITAL SIGNS: See below. CURRENT MEDICATIONS: See below. MENTAL STATUS EXAMINATION: He is a 55-year-old , Unemployed, Domiciled, [facility] for unspecified psychotic disorder Speech: Is normal rate tone and volume Language skills are. No gross abnormality. Thought processes including: disorganized, delusional Thought content: denies depression and suicidal thinking. Abstract reasoning, and computation: Able to abstract. Description of associations: loose association. Description of abnormal or psychotic thoughts: delusional statements that his whole family was murdered Judgment: impaired Insight: Impaired Orientation: 3. Recent and remote memory: fair Attention span and concentration: fair Language: fair Fund of knowledge: Reasonable. Mood: Not good:. Congruent, Cordial DIAGNOSES: Unspecified Psychotic Disorder Rule out Delirium due to Other Medical Conditions Generalized Anxiety Disorder Nicotine Use Disorder ASSESSMENT: Patient attempted to meet with the other psychiatrist and according to the MD, he attempts to meet him several times a day. He is redirectable but remains bizarre and what appears to be more delirium. Patient was found in his room, stated to this provider "I am suppose to go out and stand outside naked. My family was killed, everyone of them." Patient then stands up, takes off his pants and looks at the ceiling. When asked why he took his pants off he looks at the ceiling and said, "The speaker phone told me to do it. I am being terminated" Patient takes his pants off and on multiple times during the interview. When asked how he is doing he states, "Bad, bad, bad - I am depressed." To determine his cognition, I asked patient what he would see if he was on an island, "He states I would see palm trees, sand and rocks." He is able to answer many questions appropriately. He is alert and oriented to person, place, time, city, and zip code. Patient then observed to be talking to himself, he asks me to stop talking and he says, "Letha, Salde, Etelvina, Lori, Terri and etc." He states that these are all the people in his family that were killed. "I ordered a hit on them, supposedly. They are all killed last night." He still has poor insight. Patient was observed to be running down the hallway yesterday. His attention is impaired and but his short-term memory is mildly impaired but not absent. He is observed to be fluctuating in delirium and his delusions are transient. He was less delusional in my meeting with him yesterday but today his delusions are increased. I feel strongly that due to his transient delusions, cognitive functioning being both fleeting and fluctuating that this is delirium which may probably be exacerbated by his medications. MANAGEMENT PLAN: Spoke with Pharmacist for Pharmacy Review, patient is on several medications that cause/worsen [employer]UR[employer] depression or delirium; Morphine, Beta Yobany, Amitriptyline, Olanzapine, Gabapentin with the Trazodone, Milk of Magnesia with the combination of other medications. Will speak with medical provider to determine any changes. Will discontinued Trazodone and PRN Olanzapine. I remain cautionary as many of the medications that patient has been on for significant number of years. TIME SPENT: 25 minutes. Vital Signs Vital Signs Date Time Temp Pulse Resp B/P (MAP) Pulse Ox O2 Delivery O2 Flow Rate FiO2 04/15/20 08:01 16 04/15/20 08:01 96 142/92 04/15/20 06:03 97.4 97 Room Air Current Medications Current Medications Medications (Trade) Dose Ordered Sig/Shanell Route PRN Reason Start Time Stop Time Status Last Admin Dose Admin Acetaminophen (Tylenol Tab) 650 mg Q6HP PRN PO HEADACHE or DISCOMFORT 04/09/20 15:35 Al Hydrox/Mg Hydrox/Simethicone (Mylanta) 30 ml Q4HP PRN PO HEARTBURN/INDIGESTION 04/09/20 15:35 Albuterol Sulfate (Proventil, Ventolin Hfa) 2 puff Q4H PRN INH wheezing 04/11/20 19:25 Albuterol/ Ipratropium (Combivent Respimat 100-20mcg) 1 puff RQ6H INH 04/09/20 20:00 04/15/20 07:45 Amitriptyline HCl (Elavil) 25 mg QHS PO 04/10/20 21:00 04/14/20 20:28 Amitriptyline HCl (Elavil) 100 mg QHS PO 04/10/20 21:00 04/14/20 20:29 Aspirin (Ecotrin) 81 mg DAILY PO 04/10/20 09:00 04/15/20 08:01 Atorvastatin Calcium (Lipitor) 40 mg DAILY PO 04/10/20 09:00 04/15/20 08:01 Gabapentin (Neurontin) 600 mg QHS PO 04/09/20 21:00 04/14/20 20:28 Home Med (Med Rec Complete!) ASDIRECTED XX 04/09/20 14:35 04/09/20 14:39 DC Lorazepam (Ativan) 1 mg STAT STAT PO 04/13/20 11:22 04/13/20 11:24 DC 04/13/20 11:32 Magnesium Hydroxide (Milk Of Magnesia) 30 ml DAILYPRN PRN PO CONSTIPATION 04/09/20 15:35 Morphine Sulfate (Ms Contin) 15 mg BID PO 04/10/20 09:00 04/15/20 08:01 Morphine Sulfate (Ms Contin) 15 mg Q8H PO 04/10/20 08:00 04/10/20 10:23 DC Nicotine (Nicoderm Cq 21mg) 1 patch DAILY TD 04/10/20 09:00 04/14/20 09:30 Olanzapine (ZyPREXA ZYDIS) 5 mg Q4HP PRN PO AGITATION 04/09/20 15:35 04/15/20 06:37 Olanzapine (ZyPREXA) 2.5 mg BID PO 04/12/20 09:00 04/14/20 09:02 DC 04/13/20 20:03 Olanzapine (ZyPREXA) 2.5 mg QHS PO 04/11/20 21:00 04/12/20 12:38 DC 04/11/20 20:13 Olanzapine (ZyPREXA) 5 mg BID PO 04/14/20 09:00 04/15/20 08:01 Omeprazole (PriLOSEC) 40 mg DAILY PO 04/10/20 09:00 04/15/20 08:01 Propranolol HCl (Inderal) 20 mg TID PO 04/09/20 21:00 04/15/20 08:01 Sucralfate (Carafate) 1 gm AC PO 04/10/20 12:00 04/15/20 11:52 Trazodone HCl (Desyrel) 25 mg QHSP PRN PO INSOMNIA 04/11/20 12:05 04/14/20 20:27 Trazodone HCl (Desyrel) 50 mg QHSP PRN PO INSOMNIA 04/09/20 15:35 04/11/20 12:07 DC Allergies Coded Allergies: Penicillins (Verified Allergy, Intermediate, HIVES, 04/09/20) ANTONY ZALDIVAR NP Apr 15, 2020 12:34
[2020-04-15 16:30] VITALS: BP 140/95
[2020-04-15] MEDS ORDERED: OLANZapine 5 MG TAB PO SCH (21:00)
[2020-04-15] MEDS: AMITRIPTYLINE 50 MG TAB PO SCH (21:16)
[2020-04-15] MEDS: AMITRIPTYLINE 25MG TABLET PO SCH (21:17)
[2020-04-15] MEDS: GABAPENTIN 300 MG CAP PO SCH (21:17)
[2020-04-15] MEDS: PALIPERIDONE 3 MG ER TAB (INVEGA) PO SCH (21:18)
[2020-04-15] MEDS ORDERED: diphenhydrAMINE 50MG CAP PO STA (21:58)
[2020-04-15] MEDS ORDERED: diphenhydrAMINE 25MG CAP PO STA ×2 (22:09→22:12)
[2020-04-16] MEDS: COMBIVENT RESPIMAT 100-20MCG INHALER 4GM INH SCH ×4 (02:00→20:06)
[2020-04-16] MEDS: SUCRALFATE 1 GM TAB PO SCH ×3 (06:30→16:55)
[2020-04-16 06:34] VITALS: BP 153/85
[2020-04-16] MEDS: NICOTINE 21MG/24HR 1 EA TRANSDERMAL TD SCH (08:11)
[2020-04-16] MEDS: ATORVASTATIN 20 MG TAB PO SCH (08:12)
[2020-04-16] MEDS: PALIPERIDONE 3 MG ER TAB (INVEGA) PO SCH ×2 (08:12→20:05)
[2020-04-16] MEDS: ASPIRIN 81MG ENTERIC TABLET PO SCH (08:12)
[2020-04-16] MEDS: OMEPRAZOLE 20 MG CAP PO SCH (08:12)
[2020-04-16] MEDS: PROPRANOLOL 20 MG TAB PO SCH ×3 (08:12→20:05)
[2020-04-16] MEDS: MORPHINE 15 MG SA TAB PO SCH ×2 (08:13→20:05)
[2020-04-16] MEDS ORDERED: OLANZapine 5 MG TAB PO SCH (09:00)
[2020-04-16 13:06] LABS: BASO % 0.7 % (0.0-1.0); EOS # 0.2 10^3/uL (0.0-0.5); EOS % 4.8 % (0.0-3.0); HEMATOCRIT 36.4 % (42.0-52.0); LYMPH # 1.1 10^3/uL (1.5-5.0); LYMPH % 25.7 % (24.0-44.0); MEAN CORPUSCULAR HEMOGLOBIN 31.2 pg (27.0-33.0); MEAN CORPUSCULAR VOLUME 94.5 fl (80.0-96.0); MONO # 0.4 10^3/uL (0.0-0.8); MONO % 8.3 % (2.0-8.0); NEUTROPHILS # 2.6 10^3/uL (1.5-8.5); NEUTROPHILS % 60.3 % (36.0-66.0); PLATELET COUNT, AUTOMATED 200 10^3/uL (150-450); RED BLOOD COUNT 3.85 10^6/uL (4.30-6.10); WHITE BLOOD COUNT 4.4 10^3/uL (4.0-10.0)
--- NOTE | 2020-04-16 13:26 | IPNPDOC ---
Subjective Date Seen The patient was seen on 04/16/20. Subjective Chief Complaint/HPI Patient is a 55 yo male who is currently in [facility] and was diagnosed with unspecified psychotic disorder and macrocytic anemia noted to have delusional thought process per psych documentation. I was called to the bedside to evaluate the patient as it was noted that patient reported dyspnea and there are concerns about his skin color may look lee. Patient reported he started having dyspnea around 7 AM this morning while he was at rest. He also reported chest pain and abdominal upon asking. He reported his chest pain, dyspnea, and abdominal pain all started around 7 AM this morning. Of note nursing staff reported that at 7AM he did not report symptoms of chest pain or abdominal pain, only verbalized dyspnea at a later time. He reported that he had these symptoms before. He reported he last had chest pain 2 days ago prior to today. He had a neg cardiac workup on 04/09/2020. He reported the chest pain is burning, tender to palpation, in his left infraclavicular region, intermittent, lasting about an hr long. Patient cannot answer what happened regarding his chest pain after 8AM. He reported abdominal pain in hypogastric region bilaterally which is a constant sharp pain. Denies fever, chills, cough, nausea, vomiting. Reported last BM was yesterday General: Reports: Other Symptoms (Decreased appetite); Denies: Chills Constitutional: Denies: Chills, Fever ENT: Reports: Other Symptoms (Denies cough) Pulmonary: Reports: Dyspnea; Denies: Cough Cardiovascular: Reports: Chest Pain; Denies: Palpitations Gastrointestinal: Reports: Abdominal Pain; Denies: Nausea, Vomiting Psych: Denies: Anxiety, Depression Objective Physical Examination General Exam: Positive: Alert, Cooperative, No Acute Distress Eye Exam: Positive: Conjunctiva & lids normal ENT Exam: Positive: Atraumatic Chest Exam: Positive: Clear to auscultation, Normal air movement; Negative: Rales, Rhonchi, Wheezing Heart Exam: Positive: Rate Normal, Regular Rhythm; Negative: Murmurs Abdomen Exam: Positive: Normal bowel sounds, Soft, Tenderness (reported in b/l upper quadrants), Other (active/delayed guarding with palpation) Skin Exam: Positive: Nl turgor and temperature Neuro Exam: Positive: Normal Tone Psych Exam: Positive: Other; Negative: Anxiety (able to answer questions. No obvious hallucination noted at the time of examination. Appears mildly depressed/flat effect) Assessment /Plan Assessment 1. Chest pain -Likely due to musculoskeletal chest pain, r/o ACS -cardiac marker, CXR, TSH, BMP, Mgand BNP -continue aspirin, statin, gabapentin and propranolol -Cont current med Acetaminophen PRN and morphine 2. Dyspnea, r/o ACS -cardiac marker, CXR, TSH, BNP, lactic acid, CBC, BMP, and Mg -Patient appeared mildly pale/lee -sat well on RA, no accessory muscle use/labored breathing at the time of examination -Cont current respiratory regimen with albuterol and Combvient 3. Abdominal pain -CT abd/pelvis CT -CBC, BMP, BNP lipase, lactic acid -Cont current med Acetaminophen PRN and morphine 4. Unspecified psychotic disorder Cont to be managed in the inpatient mental health unit 5. Chronic pain Continue current PO morphine BID and gabapentin 6. Hyperlipidemia Continue home med atorvastatin DVT prophylaxis: pt ambulating, in IMHU Attending Note: Patient seen and examined independently. Agree with resident's note. Plan/VTE VTE Prophylaxis Ordered?: No (ambulating, in IMHU) VS, I&O, 24H, Fishbone Vital Signs/I&O Vital Signs Date Time Temp Pulse Resp B/P (MAP) Pulse Ox O2 Delivery O2 Flow Rate FiO2 04/16/20 09:00 Room Air 04/16/20 08:13 16 04/16/20 08:12 99 153/85 04/16/20 06:34 97.8 98 Laboratory Data 24H LABS Laboratory Tests 2 04/16/20 12:53: CBC/BMP RAVI MART DO Apr 16, 2020 13:26 TAMARA KAPOOR MD Apr 26, 2020 13:50
[2020-04-16 13:37] LABS: ALBUMIN 3.5 GM/DL (3.2-5.2); ALT/SGPT 25 U/L (12-78); BILIRUBIN,TOTAL 0.4 MG/DL (0.2-1.0); BLOOD UREA NITROGEN 22 MG/DL (7-18); CALCIUM LEVEL 8.6 MG/DL (8.5-10.1); CARBON DIOXIDE LEVEL 27 MEQ/L (21-32); CHLORIDE LEVEL 106 MEQ/L (98-107); CK-MB VALUE MASS 4.6 NG/ML (<3.6); CPK CREATINE PHOSPHOKINASE 343 U/L (39-308); CREATININE FOR GFR 0.91 MG/DL (0.70-1.30); GLOMERULAR FILTRATION RATE > 60.0 (>56); GLUCOSE, FASTING 95 MG/DL (70-100); MAGNESIUM LEVEL 2.1 MG/DL (1.8-2.4); MB/CK RELATIVE INDEX 1.34 (< OR =4); SODIUM LEVEL 140 MEQ/L (136-145); TOTAL PROTEIN 6.3 GM/DL (6.4-8.2); TROPONIN I 0.02 NG/ML (< 0.10)
[2020-04-16 13:38] LABS: LIPASE 32 U/L (73-393); NT-PRO BNP 290 PG/ML (<125); THYROID STIMULATING HORMONE 0.866 uIU/ML (0.358-3.740)
--- NOTE | 2020-04-16 14:15 | REP ---
INDICATION: chest pain COMPARISON: 04/09/2020 TECHNIQUE: PA and lateral. FINDINGS: The mediastinum and cardiac silhouette are stable and relatively normal. The lung hensley demonstrate chronic stable changes including calcified granuloma without acute consolidation, effusion, or pneumothorax. The skeletal structures are intact and normal. IMPRESSION: No acute cardiopulmonary process. <Electronically signed by Fausto Velasquez > 04/16/20 [id number]
[2020-04-16 16:20] VITALS: BP 130/80
[2020-04-16 18:19] LABS: CK-MB VALUE MASS 6.2 NG/ML (<3.6); CPK CREATINE PHOSPHOKINASE 381 U/L (39-308); MB/CK RELATIVE INDEX 1.63 (< OR =4); TROPONIN I < 0.02 NG/ML (< 0.10)
[2020-04-16] MEDS ORDERED: ISOVUE-370 76% 100ML VIAL As Ordered ONE (18:33)
[2020-04-16 19:36] LABS: MYOGLOBIN 209 NG/ML (16-116)
--- NOTE | 2020-04-16 19:57 | IPNPDOC ---
Text Note Date of Service The patient was seen on 04/16/20. NOTE INTERIM NOTE: S: Patient is a 55-year-old male, currently admitted to [facility] with unspecified psychiatric disorder, who received hospitalist evaluation earlier in the day reported dyspnea and substernal chest pain that began approximately 0700 this morning. Patient was probably evaluated by the team. At that time, patient reported similar chest pain 2 days prior, presented to the emergency department and underwent a negative cardiac workup on 04/09/20. Patient's vitals were stable. Further documentation, patient's pain was somewhat reproducible on palpation of right subclavicular region. EKG was unremarkable, cardiac markers, chest x-ray thyroid BMP mag and BMP were ordered. Patient's x-ray was unremarkable. BMP of 290, no other significant CBC or BMP findings. In regards to cardiac markers, patient was noted to have a slightly elevated CK-MB at 4.6, repeat was drawn at 1740 which demonstrated a slight increase to 6.2. Throughout both measurements, patient's troponins have remained negative. Given this elevation, patient was again interviewed and examined at the start of hourly shift manager, approximately 1920. Patient was found to be resting quietly in his room. Patient reports that his chest pain continues to be present though, nowhere near to the extent that it was earlier. Continues to state that it is substernal without radiation, slightly worse with palpation. Denies pleuritic chest pain. He currently denies palpitations, any shortness of breath at rest or with exertion. Denies headache, changes in vision, changes in hearing or difficulty swallowing. Denies any GI/ complaints. O: Vitals: Please see below CARDIAC: Regular rate and rhythm without any appreciable murmur LUNGS: Clear to auscultation bilaterally in both anterior and posterior lung hensley, no wheezes rales or rhonchi, good air movement throughout, no conversational dyspnea. No accessory muscle use labored breathing. Abdomen: Soft, nontender, nondistended, no appreciable masses, or peritoneal signs, bowel sounds throughout. Extremities: Radial and posterior tibial pulses equal 2+ bilaterally. No appreciable overlying skin changes. No lower tremors swelling or edema. No calf tenderness bilaterally. SKIN: No overlying skin changes including bruising, erythema or vesicular rash A/P: #Atypical Chest Pain, suspect MSK in origin -Exam benign except for slightly reproducible pain with palpation of left superior chest, infraclavicularly. -Currently on both aspirin and statin. Patient is a BMI of 19.9, though he is a current smoker. -As mentioned above, patient did have slightly elevated CK-MB at 1300 this afternoon. Repeat at 1940 demonstrated a slight elevation in the CK-MB to 6.2 though his troponins have remained negative. No significant EKG findings. -Patient does have when necessary Tylenol and morphine ordered given his history of chronic pain. Patient has not yet required these today. -We will follow up with repeat card villagran/EKG at midnight and 600 tomorrow morning #Hyperlipidemia -Patient is currently on statin VS,Fishbone, I+O VS, Fishbone, I+O Laboratory Tests 04/16/20 12:53 Vital Signs Date Time Temp Pulse Resp B/P (MAP) Pulse Ox O2 Delivery O2 Flow Rate FiO2 04/16/20 16:20 97.7 70 15 130/80 (97) 100 Room Air GME ATTESTATION GME ATTESTATION My faculty preceptor for this patient encounter was physically present during the encounter and was fully available. All aspects of the patient interview, examination, medical decision making process, and medical care plan development were reviewed and approved by the faculty preceptor. The faculty preceptor is aware and concurs with the plan as stated in the body of this note and will attest to such by his/her cosignature. GRACIE GUNN DO Apr 16, 2020 19:57 REMI MOTT MD Apr 16, 2020 21:59
[2020-04-16] MEDS: AMITRIPTYLINE 25MG TABLET PO SCH (20:03)
[2020-04-16] MEDS: AMITRIPTYLINE 50 MG TAB PO SCH (20:03)
[2020-04-16] MEDS: GABAPENTIN 300 MG CAP PO SCH (20:04)
[2020-04-16] MEDS: OLANZapine ORAL DISINTEGRATING TAB 5MG PO PRN (23:54)
[2020-04-17 01:12] LABS: CK-MB VALUE MASS 6.7 NG/ML (<3.6); CPK CREATINE PHOSPHOKINASE 461 U/L (39-308); MB/CK RELATIVE INDEX 1.45 (< OR =4); TROPONIN I < 0.02 NG/ML (< 0.10)
[2020-04-17] MEDS: COMBIVENT RESPIMAT 100-20MCG INHALER 4GM INH SCH ×4 (02:00→20:12)
[2020-04-17 06:44] VITALS: BP 113/69
[2020-04-17] MEDS: SUCRALFATE 1 GM TAB PO SCH ×3 (06:59→16:55)
[2020-04-17] MEDS: MORPHINE 15 MG SA TAB PO SCH ×2 (07:46→20:12)
[2020-04-17] MEDS: ATORVASTATIN 20 MG TAB PO SCH (07:46)
[2020-04-17] MEDS: PROPRANOLOL 20 MG TAB PO SCH ×3 (07:47→20:10)
[2020-04-17] MEDS: OMEPRAZOLE 20 MG CAP PO SCH (07:47)
[2020-04-17] MEDS: ASPIRIN 81MG ENTERIC TABLET PO SCH (07:47)
[2020-04-17] MEDS: PALIPERIDONE 3 MG ER TAB (INVEGA) PO SCH ×2 (07:47→20:12)
[2020-04-17] MEDS: NICOTINE 21MG/24HR 1 EA TRANSDERMAL TD SCH (07:51)
[2020-04-17 08:09] LABS: CHOLESTEROL LEVEL 108 MG/DL (<200); CHOLESTEROL RISK RATIO 2.842 (<5); CK-MB VALUE MASS 6.2 NG/ML (<3.6); CPK CREATINE PHOSPHOKINASE 411 U/L (39-308); HDL CHOLESTEROL 38 MG/DL (>40); LDL CHOLESTEROL 50 MG/DL (<100); MB/CK RELATIVE INDEX 1.51 (< OR =4); NON-HDL-C 70 MG/DL; TRIGLYCERIDES LEVEL 99 MG/DL (<150); TROPONIN I < 0.02 NG/ML (< 0.10)
[2020-04-17 10:06] LABS: HEMOGLOBIN A1c 5.8 %
--- NOTE | 2020-04-17 12:30 | IPNPDOC ---
Text Note Date of Service The patient was seen on 04/17/20. NOTE Subjective: Patient seen and examined at bedside today. He states he is feeling much better, but he still does note headache, neck pain, chest pain, abdominal pain and back pain. No clear modifying factors to his pain. He denies nausea, vomiting or diarrhea. Objective: General: NAD, sitting comfortably at edge of bed HEENT: NC/AT Lungs: CTA B/L Heart: +S1S2, RRR Abd: soft, +BS Ext: no edema A/P: #Chest pain -Likely due to musculoskeletal chest pain - full workup unrevealing for any acute cardiac pathology -continue aspirin, statin, gabapentin and propranolol -Cont current med Acetaminophen PRN and morphine # Dyspnea - appears to be resolved - workup unrevealing -sat well on RA, no accessory muscle use/labored breathing at the time of examination -Cont current respiratory regimen with albuterol and Combvient # Abdominal pain -CT abd/pelvis CT -CBC, BMP, BNP lipase, lactic acid -Cont current med Acetaminophen PRN and morphine #Unspecified psychotic disorder Cont to be managed in the inpatient mental health unit # Chronic pain Continue current PO morphine BID and gabapentin #Hyperlipidemia Continue home med atorvastatin VS,Fishbone, I+O VS, Fishbone, I+O Laboratory Tests 04/16/20 12:53 Vital Signs Date Time Temp Pulse Resp B/P (MAP) Pulse Ox O2 Delivery O2 Flow Rate FiO2 04/17/20 09:00 Room Air 04/17/20 07:47 89 113/69 04/17/20 07:46 16 04/17/20 06:44 96.7 98 TAMARA KAPOOR MD Apr 17, 2020 12:30
--- NOTE | 2020-04-17 14:34 | ECGEPIP ---
[facility] Test Date: 2020-04-17 Pat Name: TAMARA MONROY Department: Room: [place] [address] Gender: Male Reconciliation Coordinator: LITO : 1965 Requested By: REMI Eduardo Order Number: [id number] Reading MD: Neo Clemons Measurements Intervals [place] Rate: 99 P: 71 W[place]: 132 QRS: -54 QRSD: 72 T: 54 QT: 342 QTc: 438 Interpretive Statements Normal sinus rhythm Left axis deviation SIMILAR TO 04/09/20 Electronically Signed on 04-17-2020 14:34:10 EST by Neo Clemons
[2020-04-17 16:21] VITALS: BP 121/90
[2020-04-17] MEDS: AMITRIPTYLINE 25MG TABLET PO SCH (20:08)
[2020-04-17] MEDS: AMITRIPTYLINE 50 MG TAB PO SCH (20:09)
[2020-04-17] MEDS: GABAPENTIN 300 MG CAP PO SCH (20:10)
[2020-04-18] MEDS: COMBIVENT RESPIMAT 100-20MCG INHALER 4GM INH SCH ×4 (02:00→20:20)
[2020-04-18] MEDS: SUCRALFATE 1 GM TAB PO SCH ×3 (06:55→17:00)
[2020-04-18 07:04] VITALS: BP 125/85
[2020-04-18] MEDS ORDERED: ISOVUE-370 76% 100ML VIAL As Ordered ONE (08:26)
[2020-04-18] MEDS: OMEPRAZOLE 20 MG CAP PO SCH (09:39)
[2020-04-18] MEDS: ATORVASTATIN 20 MG TAB PO SCH (09:39)
[2020-04-18] MEDS: PALIPERIDONE 3 MG ER TAB (INVEGA) PO SCH ×2 (09:39→20:21)
[2020-04-18] MEDS: ASPIRIN 81MG ENTERIC TABLET PO SCH (09:39)
[2020-04-18] MEDS: PROPRANOLOL 20 MG TAB PO SCH ×3 (09:40→20:23)
[2020-04-18] MEDS: MORPHINE 15 MG SA TAB PO SCH ×2 (09:40→20:22)
[2020-04-18] MEDS: NICOTINE 21MG/24HR 1 EA TRANSDERMAL TD SCH (09:40)
--- NOTE | 2020-04-18 10:11 | REP ---
INDICATION: abd pain. COMPARISON: None TECHNIQUE: Axial contrast-enhanced images from the lung bases to the pubic symphysis using 100 cc Isovue 370 intravenous contrast material. Coronal and sagittal reformations obtained. This CT examination was performed using the following dose reduction techniques: Automated exposure control, adjustment of mA and/or kv according to the patient's size, and the use of iterative reconstruction technique. FINDINGS: Lung bases demonstrate mild emphysematous changes along with calcified granuloma in the left lower lobe. Visualized heart and pericardium are normal. Liver, spleen, pancreas, gallbladder, bilateral adrenal glands and kidneys are normal. The enteric system including stomach, small, and large bowel appears relatively normal although mild fecal stasis cannot be excluded. No evidence for obstruction or acute inflammatory process. Normal terminal ileum and appendix are identified in the right lower quadrant. Sigmoid diverticula noted without acute diverticulitis. Pelvis demonstrates normal bladder and age-appropriate prostate/seminal vesicles. No ascites. No free air. No intraperitoneal or retroperitoneal adenopathy. Abdominal aorta and vasculature appear normal. Musculoskeletal structures are intact and without acute osseous abnormality. IMPRESSION: No acute abdominopelvic pathology appreciated. Questionable mild/moderate fecal stasis should be correlated with physical examination. Sigmoid diverticula without acute diverticulitis. <Electronically signed by Fausto Velasquez > 04/18/20 1007
--- NOTE | 2020-04-18 14:41 | MHIPNPDOC ---
[facility] Progress Note Progress Note DATE OF SERVICE: 04/18/20 HISTORY: Today is Day 6 for this patient's admission. He is a 55-year-old , Unemployed, Domiciled, admitted to inpatient mental health unit for unspecified psychotic disorder. He was brought to ED for making SI and bizarre statements to his . Pt stated he was looking for Drain-O to drink. He remains delusional and bizarre in his statements. VITAL SIGNS: See below. CURRENT MEDICATIONS: See below. MENTAL STATUS EXAMINATION: He is a 55-year-old , Unemployed, Domiciled, admitted to [facility] mental health unit for unspecified psychotic disorder Speech: Is normal rate tone and volume Language skills are. No gross abnormality. Thought processes including: organized, linear Thought content: denies depression and suicidal thinking. Abstract reasoning, and computation: Able to abstract. Description of associations: loose association. Description of abnormal or psychotic thoughts: no delusional statements today during individual session Judgment: impaired Insight: Impaired Orientation: 3. Recent and remote memory: fair Attention span and concentration: fair Language: fair Fund of knowledge: Reasonable. Mood: good:. Congruent, Cordial DIAGNOSES: Unspecified Psychotic Disorder Rule out Delirium due to Other Medical Conditions Generalized Anxiety Disorder Nicotine Use Disorder ASSESSMENT: Patient reports that he is "doing better". He is alert and oriented, not endorsing any delusions. I reviewed his statements from Saturday, patient is generally shocked and states "I can't believe that." He does not recall taking about taking his clothes off and actually taking his clothes off. He appeared very embarrassed and shocked. States, "I don't remember any of that. I don't know why I did or said that" In today's session he was alert and oriented, denies depression, anxiety, paranoia, delusional thoughts. According to staff patient is responding to internal stimuli and still making delusional statements. "The [facility] is outside waiting for me." Easily redirectable. Pt denies AH/VH, but observed to be talking to himself in his room and while ambulating in halls. He is oriented x3. No complaints of chest pain or shortness of breath. "I feel really good today." Denies SI, "I would never do anything like that." MANAGEMENT PLAN: Patient was seen by Hospitalists over the weekend for complaints of chest pain. He denied residual pain and does not have any complaints today. TIME SPENT: 25 minutes. Vital Signs Vital Signs Date Time Temp Pulse Resp B/P (MAP) Pulse Ox O2 Delivery O2 Flow Rate FiO2 04/18/20 11:43 Room Air 04/18/20 09:40 18 04/18/20 09:40 76 125/85 04/18/20 07:04 97.2 97 Current Medications Current Medications Medications (Trade) Dose Ordered Sig/Shanell Route PRN Reason Start Time Stop Time Status Last Admin Dose Admin Acetaminophen (Tylenol Tab) 650 mg Q6HP PRN PO HEADACHE or DISCOMFORT 04/09/20 15:35 Al Hydrox/Mg Hydrox/Simethicone (Mylanta) 30 ml Q4HP PRN PO HEARTBURN/INDIGESTION 04/09/20 15:35 Albuterol Sulfate (Proventil, Ventolin Hfa) 2 puff Q4H PRN INH wheezing 04/11/20 19:25 Albuterol/ Ipratropium (Combivent Respimat 100-20mcg) 1 puff RQ6H INH 04/09/20 20:00 04/18/20 14:12 Amitriptyline HCl (Elavil) 25 mg QHS PO 04/10/20 21:00 04/17/20 20:08 Amitriptyline HCl (Elavil) 100 mg QHS PO 04/10/20 21:00 04/17/20 20:09 Aspirin (Ecotrin) 81 mg DAILY PO 04/10/20 09:00 04/18/20 09:39 Atorvastatin Calcium (Lipitor) 40 mg DAILY PO 04/10/20 09:00 04/18/20 09:39 Diphenhydramine HCl (Benadryl) 75 mg STAT STAT PO 04/15/20 21:58 04/15/20 21:59 Cancel Diphenhydramine HCl (Benadryl) 75 mg STAT STAT PO 04/15/20 22:09 04/15/20 22:10 Cancel Diphenhydramine HCl (Benadryl) 75 mg STAT STAT PO 04/15/20 22:12 04/15/20 22:14 DC 04/15/20 22:45 Gabapentin (Neurontin) 600 mg QHS PO 04/09/20 21:00 04/17/20 20:10 Home Med (Med Rec Complete!) ASDIRECTED XX 04/09/20 14:35 04/09/20 14:39 DC Lorazepam (Ativan) 1 mg STAT STAT PO 04/13/20 11:22 04/13/20 11:24 DC 04/13/20 11:32 Magnesium Hydroxide (Milk Of Magnesia) 30 ml DAILYPRN PRN PO CONSTIPATION 04/09/20 15:35 Morphine Sulfate (Ms Contin) 15 mg BID PO 04/10/20 09:00 04/18/20 09:40 Morphine Sulfate (Ms Contin) 15 mg Q8H PO 04/10/20 08:00 04/10/20 10:23 DC Nicotine (Nicoderm Cq 21mg) 1 patch DAILY TD 04/10/20 09:00 04/18/20 09:40 Olanzapine (ZyPREXA ZYDIS) 5 mg Q4HP PRN PO AGITATION 04/09/20 15:35 04/15/20 12:30 DC 04/15/20 06:37 Olanzapine (ZyPREXA ZYDIS) 5 mg Q6HP PRN PO ANXIETY/AGITATION 04/15/20 21:00 04/16/20 23:54 Olanzapine (ZyPREXA) 2.5 mg BID PO 04/12/20 09:00 04/14/20 09:02 DC 04/13/20 20:03 Olanzapine (ZyPREXA) 2.5 mg QHS PO 04/11/20 21:00 04/12/20 12:38 DC 04/11/20 20:13 Olanzapine (ZyPREXA) 5 mg BID PO 04/14/20 09:00 04/15/20 20:50 DC 04/15/20 08:01 Olanzapine (ZyPREXA) 5 mg DAILY PO 04/16/20 09:00 Cancel Olanzapine (ZyPREXA) 10 mg QHS PO 04/15/20 21:00 Cancel Omeprazole (PriLOSEC) 40 mg DAILY PO 04/10/20 09:00 04/18/20 09:39 Paliperidone (Invega) 3 mg BID PO 04/15/20 21:00 04/18/20 09:39 Propranolol HCl (Inderal) 20 mg TID PO 04/09/20 21:00 04/18/20 09:40 Sucralfate (Carafate) 1 gm AC PO 04/10/20 12:00 04/18/20 12:01 Trazodone HCl (Desyrel) 25 mg QHSP PRN PO INSOMNIA 04/11/20 12:05 04/15/20 12:30 DC 04/14/20 20:27 Trazodone HCl (Desyrel) 50 mg QHSP PRN PO INSOMNIA 04/09/20 15:35 04/11/20 12:07 DC Allergies Coded Allergies: Penicillins (Verified Allergy, Intermediate, HIVES, 04/09/20) ANTONY ZALDIVAR NP Apr 18, 2020 14:41
[2020-04-18 17:58] VITALS: BP 111/80
[2020-04-18] MEDS: AMITRIPTYLINE 50 MG TAB PO SCH (20:23)
[2020-04-18] MEDS: GABAPENTIN 300 MG CAP PO SCH (20:23)
[2020-04-18] MEDS: AMITRIPTYLINE 25MG TABLET PO SCH (20:23)
[2020-04-18] MEDS: OLANZapine ORAL DISINTEGRATING TAB 5MG PO PRN (22:05)
[2020-04-19] MEDS: COMBIVENT RESPIMAT 100-20MCG INHALER 4GM INH SCH ×4 (02:00→21:36)
[2020-04-19 06:55] VITALS: BP 134/89
[2020-04-19] MEDS: SUCRALFATE 1 GM TAB PO SCH ×3 (07:08→16:55)
[2020-04-19] MEDS: NICOTINE 21MG/24HR 1 EA TRANSDERMAL TD SCH (08:14)
[2020-04-19] MEDS: PALIPERIDONE 3 MG ER TAB (INVEGA) PO SCH ×2 (08:15→21:00)
[2020-04-19] MEDS: ASPIRIN 81MG ENTERIC TABLET PO SCH (08:15)
[2020-04-19] MEDS: MORPHINE 15 MG SA TAB PO SCH ×2 (08:15→21:00)
[2020-04-19] MEDS: ATORVASTATIN 20 MG TAB PO SCH (08:15)
[2020-04-19] MEDS: OMEPRAZOLE 20 MG CAP PO SCH (08:15)
[2020-04-19] MEDS: PROPRANOLOL 20 MG TAB PO SCH ×3 (08:15→21:00)
--- NOTE | 2020-04-19 14:17 | MHIPNPDOC ---
[facility] Progress Note Progress Note DATE OF SERVICE: 04/19/20 HISTORY: Today is Day 11 for this patient's admission. He is a 55-year-old , Unemployed, Domiciled, admitted to inpatient mental health unit for unspecified psychotic disorder. He was brought to ED for making SI and bizarre statements to his . Pt stated he was looking for Drain-O to drink. He remains delusional and bizarre in his statements. VITAL SIGNS: See below. CURRENT MEDICATIONS: See below. MENTAL STATUS EXAMINATION: He is a 55-year-old , Unemployed, Domiciled, admitted to in patient mental health unit for unspecified psychotic disorder Speech: Is normal rate tone and volume Language skills are. No gross abnormality. Thought processes including: more organized, linear Thought content: denies depression and suicidal thinking. Abstract reasoning, and computation: Able to abstract. Description of associations: loose association. Description of abnormal or psychotic thoughts: no delusional statements today during individual session Judgment: improving Insight: Improving Orientation: 3. Recent and remote memory: fair Attention span and concentration: fair Language: fair Fund of knowledge: Reasonable. Mood: good:. Congruent, Cordial DIAGNOSES: Unspecified Psychotic Disorder Rule out Delirium due to Other Medical Conditions Generalized Anxiety Disorder Nicotine Use Disorder ASSESSMENT: Patient is alert and oriented, reports that he is doing better. His cognition is improving although he has some delays in speech. He reported to me today that he had been taking extra Morphine at home. He states that he would take 2-3 per day every 8 hours. I reinforced with the patient that his Morphine was reduced on one of his last admissions due to delirium. He reports that he has been taking them without informing his . This could explain some of his abnormal psychotic symptoms. MANAGEMENT PLAN: Continue all medications as ordered. Will consider discharge th is week if he continues to improve TIME SPENT: 25 minutes. Vital Signs Vital Signs Date Time Temp Pulse Resp B/P (MAP) Pulse Ox O2 Delivery O2 Flow Rate FiO2 04/19/20 08:15 16 04/19/20 08:15 80 134/89 04/19/20 08:01 Room Air 04/19/20 06:55 98.1 98 Current Medications Current Medications Medications (Trade) Dose Ordered Sig/Shanell Route PRN Reason Start Time Stop Time Status Last Admin Dose Admin Acetaminophen (Tylenol Tab) 650 mg Q6HP PRN PO HEADACHE or DISCOMFORT 04/09/20 15:35 Al Hydrox/Mg Hydrox/Simethicone (Mylanta) 30 ml Q4HP PRN PO HEARTBURN/INDIGESTION 04/09/20 15:35 Albuterol Sulfate (Proventil, Ventolin Hfa) 2 puff Q4H PRN INH wheezing 04/11/20 19:25 Albuterol/ Ipratropium (Combivent Respimat 100-20mcg) 1 puff RQ6H INH 04/09/20 20:00 04/19/20 08:15 Amitriptyline HCl (Elavil) 25 mg QHS PO 04/10/20 21:00 04/18/20 20:23 Amitriptyline HCl (Elavil) 100 mg QHS PO 04/10/20 21:00 04/18/20 20:23 Aspirin (Ecotrin) 81 mg DAILY PO 04/10/20 09:00 04/19/20 08:15 Atorvastatin Calcium (Lipitor) 40 mg DAILY PO 04/10/20 09:00 04/19/20 08:15 Diphenhydramine HCl (Benadryl) 75 mg STAT STAT PO 04/15/20 21:58 04/15/20 21:59 Cancel Diphenhydramine HCl (Benadryl) 75 mg STAT STAT PO 04/15/20 22:09 04/15/20 22:10 Cancel Diphenhydramine HCl (Benadryl) 75 mg STAT STAT PO 04/15/20 22:12 04/15/20 22:14 DC 04/15/20 22:45 Gabapentin (Neurontin) 600 mg QHS PO 04/09/20 21:00 04/18/20 20:23 Home Med (Med Rec Complete!) ASDIRECTED XX 04/09/20 14:35 04/09/20 14:39 DC Lorazepam (Ativan) 1 mg STAT STAT PO 04/13/20 11:22 04/13/20 11:24 DC 04/13/20 11:32 Magnesium Hydroxide (Milk Of Magnesia) 30 ml DAILYPRN PRN PO CONSTIPATION 04/09/20 15:35 Morphine Sulfate (Ms Contin) 15 mg BID PO 04/10/20 09:00 04/19/20 08:15 Morphine Sulfate (Ms Contin) 15 mg Q8H PO 04/10/20 08:00 04/10/20 10:23 DC Nicotine (Nicoderm Cq 21mg) 1 patch DAILY TD 04/10/20 09:00 04/19/20 08:14 Olanzapine (ZyPREXA ZYDIS) 5 mg Q4HP PRN PO AGITATION 04/09/20 15:35 04/15/20 12:30 DC 04/15/20 06:37 Olanzapine (ZyPREXA ZYDIS) 5 mg Q6HP PRN PO ANXIETY/AGITATION 04/15/20 21:00 04/18/20 22:05 Olanzapine (ZyPREXA) 2.5 mg BID PO 04/12/20 09:00 04/14/20 09:02 DC 04/13/20 20:03 Olanzapine (ZyPREXA) 2.5 mg QHS PO 04/11/20 21:00 04/12/20 12:38 DC 04/11/20 20:13 Olanzapine (ZyPREXA) 5 mg BID PO 04/14/20 09:00 04/15/20 20:50 DC 04/15/20 08:01 Olanzapine (ZyPREXA) 5 mg DAILY PO 04/16/20 09:00 Cancel Olanzapine (ZyPREXA) 10 mg QHS PO 04/15/20 21:00 Cancel Omeprazole (PriLOSEC) 40 mg DAILY PO 04/10/20 09:00 04/19/20 08:15 Paliperidone (Invega) 3 mg BID PO 04/15/20 21:00 04/19/20 08:15 Propranolol HCl (Inderal) 20 mg TID PO 04/09/20 21:00 04/19/20 08:15 Sucralfate (Carafate) 1 gm AC PO 04/10/20 12:00 04/19/20 11:45 Trazodone HCl (Desyrel) 25 mg QHSP PRN PO INSOMNIA 04/11/20 12:05 04/15/20 12:30 DC 04/14/20 20:27 Trazodone HCl (Desyrel) 50 mg QHSP PRN PO INSOMNIA 04/09/20 15:35 04/11/20 12:07 DC Allergies Coded Allergies: Penicillins (Verified Allergy, Intermediate, HIVES, 04/09/20) ANTONY ZALDIVAR NP Apr 19, 2020 14:17
[2020-04-19 17:46] VITALS: BP 141/86
[2020-04-19] MEDS: AMITRIPTYLINE 50 MG TAB PO SCH (21:00)
[2020-04-19] MEDS: AMITRIPTYLINE 25MG TABLET PO SCH (21:00)
[2020-04-19] MEDS: GABAPENTIN 300 MG CAP PO SCH (21:00)
[2020-04-20] MEDS: COMBIVENT RESPIMAT 100-20MCG INHALER 4GM INH SCH ×4 (02:00→20:25)
[2020-04-20 06:00] VITALS: BP 150/72
[2020-04-20] MEDS: OLANZapine ORAL DISINTEGRATING TAB 5MG PO PRN (06:28)
[2020-04-20] MEDS: PROPRANOLOL 20 MG TAB PO SCH ×3 (08:57→20:25)
[2020-04-20] MEDS: SUCRALFATE 1 GM TAB PO SCH ×3 (08:57→16:33)
[2020-04-20] MEDS: PALIPERIDONE 3 MG ER TAB (INVEGA) PO SCH ×2 (08:57→20:25)
[2020-04-20] MEDS: ASPIRIN 81MG ENTERIC TABLET PO SCH (08:58)
[2020-04-20] MEDS: MORPHINE 15 MG SA TAB PO SCH ×2 (08:58→20:26)
[2020-04-20] MEDS: OMEPRAZOLE 20 MG CAP PO SCH (08:58)
[2020-04-20] MEDS: ATORVASTATIN 20 MG TAB PO SCH (08:58)
[2020-04-20] MEDS: NICOTINE 21MG/24HR 1 EA TRANSDERMAL TD SCH (09:00)
[2020-04-20 12:30] LABS: APPEARANCE, URINE HAZY (CLEAR); BACTERIA, URINE AUTO NEGATIVE (NEGATIVE); BILIRUBIN, URINE AUTO 1+ (NEGATIVE); BLOOD, URINE BLOOD 1+ (NEGATIVE); COLOR, URINE AMBER (YELLOW); GLUCOSE, URINE (UA) AUTO NEGATIVE (NEGATIVE); KETONE, URINE AUTO 2+ mg/dL (NEGATIVE); LEUKOCYTE ESTERASE, URINE AUTO NEGATIVE (NEGATIVE); MUCUS, URINE LARGE (NEGATIVE); NITRITE, URINE AUTO NEGATIVE (NEGATIVE); PROTEIN, URINE AUTO 2+ mg/dL (NEGATIVE); RBC, URINE AUTO 41 /HPF (0-3); SPECIFIC GRAVITY URINE AUTO 1.033 (1.002-1.035); SQUAMOUS EPITHELIAL CELL UR AU 0 /HPF (0-6); WBC, URINE AUTO 0 /HPF (0-3)
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
--- NOTE | 2020-04-20 16:41 | IPNPDOC ---
Subjective Date Seen The patient was seen on 04/20/20. Subjective Chief Complaint/HPI Mr. Akbar is a 55-year-old male with depression and generalized anxiety who is in the inpatient mental health unit for unspecified psychotic disorder. I was contact by [facility] to re-evaluate the patient for delirium. Patient waxes and wanes, and he has not responded to antipsychotics. Of note, recent UA was positive for blood, but negative for pyuria, nitrites, or bacteria. Patient was resting in bed when I saw him. Only reports fatigue, but denies chest pain, dyspnea, abdominal pain, diarrhea, dysuria, anxiety, or depression. When I sat him up, no lightheadedness. When taking a deep breath, no pleuritic chest pain. Denies history of STD. He looks more tired than vida I first saw him a couple of weeks. Nursing reported prior to this he was confused and agitated and had trouble reading the paper. Constitutional: Denies: Chills, Fever Eyes: Denies: Vision change ENT: Denies: Sore Throat Skin: Denies: Rash Pulmonary: Denies: Dyspnea Cardiovascular: Denies: Chest Pain Gastrointestinal: Denies: Abdominal Pain, Diarrhea Genitourinary: Denies: Dysuria Hematologic: Denies: Bruising Psych: Denies: Anxiety, Depression Objective Physical Examination General Exam: Positive: Alert, Cooperative, Other (Fatigued) Eye Exam: Positive: EOMI; Negative: Sclera icteric ENT Exam: Positive: Atraumatic Neck Exam: Positive: Supple Chest Exam: Positive: Clear to auscultation, Normal air movement; Negative: Rales, Rhonchi, Wheezing Heart Exam: Positive: Tachycardic, Regular Rhythm; Negative: Murmurs Abdomen Exam: Positive: Normal bowel sounds, Soft; Negative: Tenderness Extremity Exam: Negative: Edema Neuro Exam: Positive: Normal Speech, Normal Tone, Cranial Nerves 3-12 NL Psych Exam: Negative: Anxiety Assessment /Plan Plan/VTE VTE Prophylaxis Ordered?: No (ambulating, in [facility]) Plan 1. Abnormal mental status and fatigue -Patient waxes and wane. When I saw him, he was pleasant and denied ROS except for fatigue. Prior he was agitated and confused -UA not suggestive of infection -Ordered CBC, CMP, ammonia, TSH, and ABG to look for causes of fatigue and AMS -Ordered ESR, CRP, SALVADOR, and ANCA to look for rheumatologic causes of AMS. Microscopic hematuria may be a sign of vasculitis or Lupus involvement -Ordered syphilis and HIV as infectious causes of AMS -Ordered lead as cause for toxic cause of AMS -Ordered CT head without contrast to look for intracranial causes of AMS 2. Unspecified psychotic disorder Being managed in the inpatient mental health unit 3. Chronic pain Continue morphine twice a day and gabapentin at bedtime 4. Hyperlipidemia Continue atorvastatin Thank you for consulting us, we will continue to follow and will follow up on lab and imaging results VS, I&O, 24H, Fishbone Vital Signs/I&O Vital Signs Date Time Temp Pulse Resp B/P (MAP) Pulse Ox O2 Delivery O2 Flow Rate FiO2 04/20/20 08:58 18 04/20/20 08:57 95 150/72 04/20/20 06:00 98.3 97 04/19/20 08:01 Room Air Laboratory Data 24H LABS Laboratory Tests 2 04/20/20 12:10: Urine Color RAY, Urine Appearance HAZY, Urine pH 5.0, Urine Specific [place] 1.033, Urine Protein 2+H, Urine Glucose (Auto)(UA) NEGATIVE, Urine Ketones (Auto) 2+H, Urine Blood 1+H, Urine Nitrite NEGATIVE, Urine Bilirubin 1+H, Urine Urobilinogen 2.0H, Urine Leukocyte Esterase (Auto) NEGATIVE, Urine WBC (Auto) 0, Urine RBC (Auto) 41H, Urine Hyaline Casts (Auto) 0, Urine Bacteria (Auto) NEGATIVE, Urine Squamous Epithelial Cells 0, Urine Mucus (Auto) LARGE, Urine Sperm (Auto) Microbiology Microbiology 04/16/20 Respiratory Virus Panel (PCR) (TODD) - Final, Complete ISAAC LOWERY 10, 2021 16:41
[2020-04-20 17:24] LABS: BASO % 0.5 % (0.0-1.0); EOS # 0.2 10^3/uL (0.0-0.5); HEMATOCRIT 35.6 % (42.0-52.0); HEMOGLOBIN 12.2 g/dl (13.5-17.5); LYMPH # 1.4 10^3/uL (1.5-5.0); LYMPH % 32.6 % (24.0-44.0); MEAN CORPUSCULAR HEMOGLOBIN 32.4 pg (27.0-33.0); MEAN CORPUSCULAR HGB CONC 34.3 g/dl (32.0-36.5); MEAN CORPUSCULAR VOLUME 94.7 fl (80.0-96.0); MONO # 0.3 10^3/uL (0.0-0.8); NEUTROPHILS # 2.3 10^3/uL (1.5-8.5); NEUTROPHILS % 53.7 % (36.0-66.0); PLATELET COUNT, AUTOMATED 205 10^3/uL (150-450); RED BLOOD COUNT 3.76 10^6/uL (4.30-6.10); WHITE BLOOD COUNT 4.2 10^3/uL (4.0-10.0)
--- NOTE | 2020-04-20 17:27 | REPVR ---
PROCEDURE INFORMATION: Exam: CT Head Without Contrast Exam date and time: 04/20/2020 5:00 PM Age: 55 years old Clinical indication: Altered mental status/memory loss; Additional info: AMS TECHNIQUE: Imaging protocol: Computed tomography of the head without contrast. Radiation optimization: All CT scans at this facility use at least one of these dose optimization techniques: automated exposure control; mA and/or kV adjustment per patient size (includes targeted exams where dose is matched to clinical indication); or iterative reconstruction. COMPARISON: CT Head without contrast 03/24/2020 8:47 AM FINDINGS: Brain: There is no evidence of intracranial bleed. The best-white differentiation appears preserved. Cerebral ventricles: Normal ventricles. Bones/joints: There is no evidence of fracture. Paranasal sinuses: Clear paranasal sinuses. Mastoid air cells: Clear mastoid air cells. Orbital cavity: Symmetric orbits. And Soft tissues: There is no evidence of soft tissue abnormality. IMPRESSION: Normal appearing CT scan of the brain. Electronically signed by: Rito Howard On 04/20/2020 17:27:32 PM
[2020-04-20 17:35] LABS: ABG pH (ARTERIAL) 7.414 UNITS (7.350-7.450)
[2020-04-20 17:36] LABS: ABG BASE EXCESS -2.6 (-2.0-2.0); ABG HCO3 21.3 MEQ/L (22.0-26.0); ABG O2 SATURATION 97.6 % (95.0-99.0); ABG PARTIAL PRESSURE CO2 34.1 mmHg (35.0-45.0); ABG PARTIAL PRESSURE O2 95.8 mmHg (75.0-100.0); ABG STANDARD HCO3 22.3 MEQ/L (22.0-26.0); ABG TOTAL CO2 22.4 MEQ/L (22.0-29.0)
[2020-04-20 17:59] VITALS: BP 140/89
[2020-04-20 18:00] LABS: ALBUMIN 3.6 GM/DL (3.2-5.2); ALT/SGPT 27 U/L (12-78); BILIRUBIN,TOTAL 0.3 MG/DL (0.2-1.0); BLOOD UREA NITROGEN 27 MG/DL (7-18); CALCIUM LEVEL 8.5 MG/DL (8.5-10.1); CARBON DIOXIDE LEVEL 28 MEQ/L (21-32); CHLORIDE LEVEL 109 MEQ/L (98-107); CREATININE FOR GFR 0.86 MG/DL (0.70-1.30); GLOMERULAR FILTRATION RATE > 60.0 (>56); GLUCOSE, FASTING 93 MG/DL (70-100); POTASSIUM SERUM 3.9 MEQ/L (3.5-5.1); SODIUM LEVEL 142 MEQ/L (136-145); THYROID STIMULATING HORMONE 0.803 uIU/ML (0.358-3.740); TOTAL PROTEIN 6.4 GM/DL (6.4-8.2)
[2020-04-20 18:21] LABS: ERYTHROCYTE SEDIMENTATION RATE 14 mm/hr (0-20)
[2020-04-20 18:38] LABS: HIV 1&2 SCREEN CENTAUR NEGATIVE (NEGATIVE)
[2020-04-20] MEDS: GABAPENTIN 300 MG CAP PO SCH (20:25)
[2020-04-20] MEDS: AMITRIPTYLINE 50 MG TAB PO SCH (20:25)
[2020-04-20] MEDS: AMITRIPTYLINE 25MG TABLET PO SCH (20:25)
[2020-04-21] MEDS: COMBIVENT RESPIMAT 100-20MCG INHALER 4GM INH SCH ×4 (02:00→20:18)
[2020-04-21 06:27] VITALS: BP 141/91
[2020-04-21] MEDS: SUCRALFATE 1 GM TAB PO SCH ×3 (06:31→16:39)
[2020-04-21 06:51] LABS: BASO % 0.5 % (0.0-1.0); EOS # 0.3 10^3/uL (0.0-0.5); EOS % 7.6 % (0.0-3.0); HEMATOCRIT 36.5 % (42.0-52.0); HEMOGLOBIN 12.3 g/dl (13.5-17.5); LYMPH # 1.3 10^3/uL (1.5-5.0); LYMPH % 30.3 % (24.0-44.0); MEAN CORPUSCULAR HEMOGLOBIN 32.7 pg (27.0-33.0); MEAN CORPUSCULAR HGB CONC 33.7 g/dl (32.0-36.5); MEAN CORPUSCULAR VOLUME 97.1 fl (80.0-96.0); MONO # 0.4 10^3/uL (0.0-0.8); NEUTROPHILS # 2.3 10^3/uL (1.5-8.5); NEUTROPHILS % 53.4 % (36.0-66.0); PLATELET COUNT, AUTOMATED 204 10^3/uL (150-450); RED BLOOD COUNT 3.76 10^6/uL (4.30-6.10); WHITE BLOOD COUNT 4.4 10^3/uL (4.0-10.0)
[2020-04-21 07:09] LABS: ALBUMIN 3.6 GM/DL (3.2-5.2); ALT/SGPT 24 U/L (12-78); BILIRUBIN,TOTAL 0.4 MG/DL (0.2-1.0); BLOOD UREA NITROGEN 26 MG/DL (7-18); CALCIUM LEVEL 8.6 MG/DL (8.5-10.1); CARBON DIOXIDE LEVEL 30 MEQ/L (21-32); CHLORIDE LEVEL 109 MEQ/L (98-107); CREATININE FOR GFR 0.82 MG/DL (0.70-1.30); GLOMERULAR FILTRATION RATE > 60.0 (>56); GLUCOSE, FASTING 93 MG/DL (70-100); POTASSIUM SERUM 3.8 MEQ/L (3.5-5.1); SODIUM LEVEL 142 MEQ/L (136-145); TOTAL PROTEIN 6.5 GM/DL (6.4-8.2)
[2020-04-21] MEDS: NICOTINE 21MG/24HR 1 EA TRANSDERMAL TD SCH (09:00)
[2020-04-21] MEDS: OMEPRAZOLE 20 MG CAP PO SCH (09:00)
[2020-04-21] MEDS: MORPHINE 15 MG SA TAB PO SCH (09:00)
[2020-04-21] MEDS: PROPRANOLOL 20 MG TAB PO SCH ×3 (09:00→20:18)
[2020-04-21] MEDS ORDERED: MORPHINE 15 MG SA TAB PO SCH (09:00)
[2020-04-21] MEDS: ASPIRIN 81MG ENTERIC TABLET PO SCH (09:00)
[2020-04-21] MEDS: ATORVASTATIN 20 MG TAB PO SCH (09:00)
[2020-04-21] MEDS: PALIPERIDONE 3 MG ER TAB (INVEGA) PO SCH (09:00)
--- NOTE | 2020-04-21 16:12 | MHIPNPDOC ---
[facility] Progress Note Progress Note DATE OF SERVICE: 04/21/20 ISTORY: Today is Day 13 for this patient's admission. He is a 55-year-old , Unemployed, Domiciled, admitted to inpatient mental health unit for unspecified psychotic disorder. He was brought to ED for making SI and bizarre statements to his . Pt stated he was looking for Drain-O to drink. He remains delusional and bizarre in his statements. VITAL SIGNS: See below. Results: Please see results in Urine Analysis CURRENT MEDICATIONS: See below. MENTAL STATUS EXAMINATION: He is a 55-year-old , Unemployed, Domiciled, admitted to inpatient mental health unit for unspecified psychotic disorder Speech: Is normal rate tone and volume Language skills are. No gross abnormality. Thought processes including: more organized, but this varies throughout the day Thought content: denies depression and suicidal thinking. Abstract reasoning, and computation: Able to abstract. Description of associations: loose association. Description of abnormal or psychotic thoughts: Judgment: fair to poor Insight: fair to poor Orientation: 3. Recent and remote memory: poor to fair at times Attention span and concentration: fair to poor at times Language: fair Fund of knowledge: Reasonable. Mood: euthymic : Affect: flat DIAGNOSES: Unspecified Psychotic Disorder Rule out Delirium due to Other Medical Conditions Generalized Anxiety Disorder Nicotine Use Disorder ASSESSMENT: Patient is alert and oriented, denies having any auditory hallucinations but in another interview with 2nd psychiatrist he reported that he had been hearing voices. He often has varying degrees of lucidity throughout the day. When I met him, he denied being depressed, denies being anxious, denies having auditory hallucinations, denies command hallucinations, denies suicidality/homicidality. When asked about his comments about his family having he stated "That was a dream, I know that didn't really happen." Patient was in with primary RN who reports that he remains bizarre and delusional, believes his family is and that he has to help plan their funerals. Patient needs to be encouraged to eat and drink as he has had poor appetite and poor hydration. Patient has a very best pallor within the past two days. Due to his poor insight and poor judgment, patient is not stable for discharge as throughout the day his attention, memory and including bizarre and delusional statements wax and wane. Spoke with neurology who feels patient would benefit from reduction of medications that are contributing to delirium/delusions. Dr. Castillo will see patient as 2nd consultation. Spoke with Dr. Gallardo who will follow up and review. No other abnormalities on CT scan or blood draws. MANAGEMENT PLAN: Continue all medications as ordered. 2 PC ordered TIME SPENT: 25 minutes. Vital Signs Vital Signs Date Time Temp Pulse Resp B/P (MAP) Pulse Ox O2 Delivery O2 Flow Rate FiO2 04/21/20 12:30 16 04/21/20 06:27 98.1 84 141/91 (108) 96 Room Air Laboratory Data 24H Labs Laboratory Tests 2 04/20/20 16:17: Blood Gas Bicarbonate Standard 22.3, Arterial Blood pH 7.414, Arterial Blood Partial Pressure CO2 34.1L, Arterial Blood Partial Pressure O2 95.8, Arterial Blood Total CO2 22.4, Arterial Blood HCO3 21.3L, Arterial Blood Base Excess - 2.6L, Arterial Blood Oxygen Saturation 97.6 04/20/20 16:46: Immature Granulocyte % (Auto) 0.2, Neutrophils (%) (Auto) 53.7, Lymphocytes (%) (Auto) 32.6, Monocytes (%) (Auto) 8.0, Eosinophils (%) (Auto) 5.0H, Basophils (%) (Auto) 0.5, Neutrophils # (Auto) 2.3, Lymphocytes # (Auto) 1.4L, Monocytes # (Auto) 0.3, Eosinophils # (Auto) 0.2, Basophils # (Auto) 0.0, Nucleated Red Blood Cells % (auto) 0.0, Erythrocyte Sedimentation Rate 14, Anion Gap 5L, Glomerular Filtration Rate > 60.0, Calcium Level 8.5, Total Bilirubin 0.3, Aspartate Amino Transf (AST/SGOT) 17, Alanine Aminotransferase (ALT/SGPT) 27, Alkaline Phosphatase 92, Ammonia 19, C-Reactive Protein, Quantitative 0.30, Total Protein 6.4, Albumin 3.6, Albumin/Globulin Ratio 1.3, Thyroid Stimulating Hormone (TSH) 0.803, Syphilis Serology NONREACTIVE, HIV Antigen/Antibody Combo Qual NEGATIVE 04/21/20 06:03: Immature Granulocyte % (Auto) 0.2, Neutrophils (%) (Auto) 53.4, Lymphocytes (%) (Auto) 30.3, Monocytes (%) (Auto) 8.0, Eosinophils (%) (Auto) 7.6H, Basophils (%) (Auto) 0.5, Neutrophils # (Auto) 2.3, Lymphocytes # (Auto) 1.3L, Monocytes # (Auto) 0.4, Eosinophils # (Auto) 0.3, Basophils # (Auto) 0.0, Nucleated Red Blood Cells % (auto) 0.0, Anion Gap 3L, Glomerular Filtration Rate > 60.0, Calcium Level 8.6, Total Bilirubin 0.4, Aspartate Amino Transf (AST/SGOT) 15, Alanine Aminotransferase (ALT/SGPT) 24, Alkaline Phosphatase 90, Total Protein 6.5, Albumin 3.6, Albumin/Globulin Ratio 1.2 CBC/BMP Laboratory Tests 04/20/20 16:46 04/21/20 06:03 Current Medications Current Medications Medications (Trade) Dose Ordered Sig/Shanell Route PRN Reason Start Time Stop Time Status Last Admin Dose Admin Acetaminophen (Tylenol Tab) 650 mg Q6HP PRN PO HEADACHE or DISCOMFORT 04/09/20 15:35 Al Hydrox/Mg Hydrox/Simethicone (Mylanta) 30 ml Q4HP PRN PO HEARTBURN/INDIGESTION 04/09/20 15:35 Albuterol Sulfate (Proventil, Ventolin Hfa) 2 puff Q4H PRN INH wheezing 04/11/20 19:25 Albuterol/ Ipratropium (Combivent Respimat 100-20mcg) 1 puff RQ6H INH 04/09/20 20:00 04/21/20 13:19 Amitriptyline HCl (Elavil) 25 mg QHS PO 04/10/20 21:00 04/21/20 11:16 DC 04/20/20 20:25 Amitriptyline HCl (Elavil) 100 mg QHS PO 04/10/20 21:00 04/21/20 11:19 DC 04/20/20 20:25 Aspirin (Ecotrin) 81 mg DAILY PO 04/10/20 09:00 04/20/20 08:58 Atorvastatin Calcium (Lipitor) 40 mg DAILY PO 04/10/20 09:00 04/20/20 08:58 Diphenhydramine HCl (Benadryl) 75 mg STAT STAT PO 04/15/20 21:58 04/15/20 21:59 Cancel Diphenhydramine HCl (Benadryl) 75 mg STAT STAT PO 04/15/20 22:09 04/15/20 22:10 Cancel Diphenhydramine HCl (Benadryl) 75 mg STAT STAT PO 04/15/20 22:12 04/15/20 22:14 DC 04/15/20 22:45 Gabapentin (Neurontin) 600 mg QHS PO 04/09/20 21:00 04/21/20 11:16 DC 04/20/20 20:25 Home Med (Med Rec Complete!) ASDIRECTED XX 04/09/20 14:35 04/09/20 14:39 DC Lorazepam (Ativan) 1 mg STAT STAT PO 04/13/20 11:22 04/13/20 11:24 DC 04/13/20 11:32 Magnesium Hydroxide (Milk Of Magnesia) 30 ml DAILYPRN PRN PO CONSTIPATION 04/09/20 15:35 Morphine Sulfate (Ms Contin) 15 mg BID PO 04/10/20 09:00 04/21/20 11:16 DC 04/20/20 20:26 Morphine Sulfate (Ms Contin) 15 mg DAILY PO 04/21/20 09:00 04/21/20 12:30 Morphine Sulfate (Ms Contin) 15 mg Q8H PO 04/10/20 08:00 04/10/20 10:23 DC Nicotine (Nicoderm Cq 21mg) 1 patch DAILY TD 04/10/20 09:00 04/20/20 09:00 Olanzapine (ZyPREXA ZYDIS) 5 mg Q4HP PRN PO AGITATION 04/09/20 15:35 04/15/20 12:30 DC 04/15/20 06:37 Olanzapine (ZyPREXA ZYDIS) 5 mg Q6HP PRN PO ANXIETY/AGITATION 04/15/20 21:00 04/20/20 06:28 Olanzapine (ZyPREXA) 2.5 mg BID PO 04/12/20 09:00 04/14/20 09:02 DC 04/13/20 20:03 Olanzapine (ZyPREXA) 2.5 mg QHS PO 04/11/20 21:00 04/12/20 12:38 DC 04/11/20 20:13 Olanzapine (ZyPREXA) 5 mg BID PO 04/14/20 09:00 04/15/20 20:50 DC 04/15/20 08:01 Olanzapine (ZyPREXA) 5 mg DAILY PO 04/16/20 09:00 Cancel Olanzapine (ZyPREXA) 10 mg QHS PO 04/15/20 21:00 Cancel Omeprazole (PriLOSEC) 40 mg DAILY PO 04/10/20 09:00 04/20/20 08:58 Paliperidone (Invega) 3 mg BID PO 04/15/20 21:00 04/21/20 11:16 DC 04/20/20 20:25 Propranolol HCl (Inderal) 20 mg TID PO 04/09/20 21:00 04/20/20 20:25 Sucralfate (Carafate) 1 gm AC PO 04/10/20 12:00 04/21/20 06:31 Trazodone HCl (Desyrel) 25 mg QHSP PRN PO INSOMNIA 04/11/20 12:05 04/15/20 12:30 DC 04/14/20 20:27 Trazodone HCl (Desyrel) 50 mg QHSP PRN PO INSOMNIA 04/09/20 15:35 04/11/20 12:07 DC Allergies Coded Allergies: Penicillins (Verified Allergy, Intermediate, HIVES, 04/09/20) ANTONY ZALDIVAR NP Apr 21, 2020 15:26
[2020-04-21 18:51] VITALS: BP 139/79
[2020-04-22] MEDS: COMBIVENT RESPIMAT 100-20MCG INHALER 4GM INH SCH ×4 (02:00→21:55)
[2020-04-22] MEDS: SUCRALFATE 1 GM TAB PO SCH ×3 (06:45→17:29)
[2020-04-22 06:47] VITALS: BP 128/83
[2020-04-22] MEDS ORDERED: BENZTROPINE 0.5 MG TAB PO PRN (08:55)
[2020-04-22] MEDS: NICOTINE 21MG/24HR 1 EA TRANSDERMAL TD SCH (09:00)
[2020-04-22] MEDS: OMEPRAZOLE 20 MG CAP PO SCH (09:04)
[2020-04-22] MEDS: PROPRANOLOL 20 MG TAB PO SCH ×3 (09:04→22:01)
[2020-04-22] MEDS: ASPIRIN 81MG ENTERIC TABLET PO SCH (09:04)
[2020-04-22] MEDS: haloperidoL 5 MG TAB PO SCH ×2 (09:05→21:55)
--- NOTE | 2020-04-22 14:08 | MHIPNPDOC ---
[facility] Progress Note Progress Note DATE OF SERVICE: 04/22/20 HISTORY: Today is Day 14 for this patient's admission. He is a 55-year-old , Unemployed, Domiciled, admitted to inpatient mental health unit for unspecified psychotic disorder. He was brought to ED for making SI and bizarre statements to his . Pt stated he was looking for Drain-O to drink. He remains delusional and bizarre in his statements. VITAL SIGNS: See below. Results: Please see results in Urine Analysis CURRENT MEDICATIONS: See below. MENTAL STATUS EXAMINATION: He is a 55-year-old , Unemployed, Domiciled, admitted to inpatient mental health unit for unspecified psychotic disorder Speech: Is normal rate tone and volume Language skills are. No gross abnormality. Thought processes including: linear today Thought content: denies depression and suicidal thinking. Abstract reasoning, and computation: Able to abstract. Description of associations: none Description of abnormal or psychotic thoughts: denies, none observed Judgment: fair Insight: fair Orientation: 3. Recent and remote memory: improved Attention span and concentration: improved Language: fair Fund of knowledge: Reasonable. Mood: euthymic : Affect: flat DIAGNOSES: Unspecified Psychotic Disorder Rule out Delirium due to Other Medical Conditions Generalized Anxiety Disorder Nicotine Use Disorder ASSESSMENT: Patient reports that he is doing is doing better today. He is observed with more cognition today than in his 2 weeks here. His facial appearance has improved and he appears less tired. Patient's alertness and orientation has improved, he denies any auditory hallucinations, he is not observed with any internal stimuli, he makes no delusional statements, denies any beliefs of his family being and needing to arrange their funerals. Patient is willing to sign in voluntary. Patient made call to his , with provider in the room. He was able to have a very linear conversation with no gross abnormalities in psychiatric symptoms. Pending any decline, we will discharge patient on Saturday - patient agreeable. MANAGEMENT PLAN: Continue all medications as ordered. 2 PC ordered. Patient signed in voluntary. Patient's medications were discontinued: Morphine, Gabapentin, Amitriptyline, Risperdal, Zyprexa, and Atorvastatin TIME SPENT: 25 minutes. Vital Signs Vital Signs Date Time Temp Pulse Resp B/P (MAP) Pulse Ox O2 Delivery O2 Flow Rate FiO2 04/22/20 09:04 87 128/83 04/22/20 06:47 98.4 16 98 Room Air Current Medications Current Medications Medications (Trade) Dose Ordered Sig/Shanell Route PRN Reason Start Time Stop Time Status Last Admin Dose Admin Acetaminophen (Tylenol Tab) 650 mg Q6HP PRN PO HEADACHE or DISCOMFORT 04/09/20 15:35 Al Hydrox/Mg Hydrox/Simethicone (Mylanta) 30 ml Q4HP PRN PO HEARTBURN/INDIGESTION 04/09/20 15:35 Albuterol Sulfate (Proventil, Ventolin Hfa) 2 puff Q4H PRN INH wheezing 04/11/20 19:25 Albuterol/ Ipratropium (Combivent Respimat 100-20mcg) 1 puff RQ6H INH 04/09/20 20:00 04/22/20 13:36 Amitriptyline HCl (Elavil) 25 mg QHS PO 04/10/20 21:00 04/21/20 11:16 DC 04/20/20 20:25 Amitriptyline HCl (Elavil) 100 mg QHS PO 04/10/20 21:00 04/21/20 11:19 DC 04/20/20 20:25 Aspirin (Ecotrin) 81 mg DAILY PO 04/10/20 09:00 04/22/20 09:04 Atorvastatin Calcium (Lipitor) 40 mg DAILY PO 04/10/20 09:00 04/22/20 06:40 DC 04/20/20 08:58 Benztropine Mesylate (Cogentin) 0.5 mg BIDP PRN PO eps 04/22/20 08:55 Diphenhydramine HCl (Benadryl) 75 mg STAT STAT PO 04/15/20 21:58 04/15/20 21:59 Cancel Diphenhydramine HCl (Benadryl) 75 mg STAT STAT PO 04/15/20 22:09 04/15/20 22:10 Cancel Diphenhydramine HCl (Benadryl) 75 mg STAT STAT PO 04/15/20 22:12 04/15/20 22:14 DC 04/15/20 22:45 Gabapentin (Neurontin) 600 mg QHS PO 04/09/20 21:00 04/21/20 11:16 DC 04/20/20 20:25 Haloperidol (Haldol) 5 mg BID PO 04/22/20 09:00 04/22/20 09:05 Home Med (Med Rec Complete!) ASDIRECTED XX 04/09/20 14:35 04/09/20 14:39 DC Lorazepam (Ativan) 1 mg STAT STAT PO 04/13/20 11:22 04/13/20 11:24 DC 04/13/20 11:32 Magnesium Hydroxide (Milk Of Magnesia) 30 ml DAILYPRN PRN PO CONSTIPATION 04/09/20 15:35 Morphine Sulfate (Ms Contin) 15 mg BID PO 04/10/20 09:00 04/21/20 11:16 DC 04/20/20 20:26 Morphine Sulfate (Ms Contin) 15 mg DAILY PO 04/21/20 09:00 04/21/20 16:13 DC 04/21/20 12:30 Morphine Sulfate (Ms Contin) 15 mg Q8H PO 04/10/20 08:00 04/10/20 10:23 DC Nicotine (Nicoderm Cq 21mg) 1 patch DAILY TD 04/10/20 09:00 04/20/20 09:00 Olanzapine (ZyPREXA ZYDIS) 5 mg Q4HP PRN PO AGITATION 04/09/20 15:35 04/15/20 12:30 DC 04/15/20 06:37 Olanzapine (ZyPREXA ZYDIS) 5 mg Q6HP PRN PO ANXIETY/AGITATION 04/15/20 21:00 04/22/20 06:40 DC 04/20/20 06:28 Olanzapine (ZyPREXA) 2.5 mg BID PO 04/12/20 09:00 04/14/20 09:02 DC 04/13/20 20:03 Olanzapine (ZyPREXA) 2.5 mg QHS PO 04/11/20 21:00 04/12/20 12:38 DC 04/11/20 20:13 Olanzapine (ZyPREXA) 5 mg BID PO 04/14/20 09:00 04/15/20 20:50 DC 04/15/20 08:01 Olanzapine (ZyPREXA) 5 mg DAILY PO 04/16/20 09:00 Cancel Olanzapine (ZyPREXA) 10 mg QHS PO 04/15/20 21:00 Cancel Omeprazole (PriLOSEC) 40 mg DAILY PO 04/10/20 09:00 04/22/20 09:04 Paliperidone (Invega) 3 mg BID PO 04/15/20 21:00 04/21/20 11:16 DC 04/20/20 20:25 Propranolol HCl (Inderal) 20 mg TID PO 04/09/20 21:00 04/22/20 09:04 Sucralfate (Carafate) 1 gm AC PO 04/10/20 12:00 04/21/20 06:31 Trazodone HCl (Desyrel) 25 mg QHSP PRN PO INSOMNIA 04/11/20 12:05 04/15/20 12:30 DC 04/14/20 20:27 Trazodone HCl (Desyrel) 50 mg QHSP PRN PO INSOMNIA 04/09/20 15:35 04/11/20 12:07 DC Allergies Coded Allergies: Penicillins (Verified Allergy, Intermediate, HIVES, 04/09/20) ANTONY ZALDIVAR NP Apr 22, 2020 14:04
[2020-04-23] MEDS: COMBIVENT RESPIMAT 100-20MCG INHALER 4GM INH SCH ×4 (02:00→19:22)
[2020-04-23 07:11] VITALS: BP 140/96
[2020-04-23] MEDS: SUCRALFATE 1 GM TAB PO SCH ×3 (07:30→16:32)
[2020-04-23] MEDS: NICOTINE 21MG/24HR 1 EA TRANSDERMAL TD SCH (09:00)
[2020-04-23] MEDS: haloperidoL 5 MG TAB PO SCH (09:44)
[2020-04-23] MEDS: ASPIRIN 81MG ENTERIC TABLET PO SCH (09:44)
[2020-04-23] MEDS: OMEPRAZOLE 20 MG CAP PO SCH (09:44)
[2020-04-23] MEDS: PROPRANOLOL 20 MG TAB PO SCH ×3 (09:44→19:30)
--- NOTE | 2020-04-23 12:07 | MHIPNPDOC ---
[facility] Progress Note Progress Note DATE OF SERVICE: 04/23/20 HISTORY: Report by Dr. Thompson states patient is doing better yesterday. She discontinued amitriptyline, Risperdal, Zyprexa, and situs, gabapentin, morphine and Ativan as 10. She stated his color is back and he denies auditory hallucinations and is eating okay. This morning. He appeared better, is eating at better color and his consciousness seemed clearer. We had made a decision to discontinue all of his medications as his main symptom after being admitted was changing consciousness. We made the assumptive diagnosis of delirium based not only on his condition, but also a recognition that he had a past history of admissions with encephalopathy VITAL SIGNS: See below. NEW TEST RESULTS: None. CURRENT MEDICATIONS: See below. MENTAL STATUS EXAMINATION: Patient is a 55-year old male, who is sitting in the cafeteria socializing with patient's eating and able to answer questions clearly. Speech: Is clear. Language skills are. No disturbance. Thought processes including: No disturbance. Thought content: As above. Abstract reasoning, and computation: Able to abstract. Description of associations: O loose association. Description of abnormal or psychotic thoughts:. No psychotic thought. Today no abnormal thought noted. Judgment:. Poor. Insight: Poor. Orientation: 3. Recent and remote memory: Intact. Today. Attention span and concentration: Intact. Today. Language: No gross disturbance. Fund of knowledge: Full. Mood:, Euthymic. Affect:, Congruent. DIAGNOSES: 1., Acute encephalopathy. 2. None. 3. None ASSESSMENT: It needs to be decided whether in fact on admission, he was encephalopathic with his bizarre symptom complaints MANAGEMENT PLAN:. We'll continue to observe. Do not suggest immediate discharge until days of clarity are noted. TIME SPENT:. 35 minutes. Vital Signs Vital Signs Date Time Temp Pulse Resp B/P (MAP) Pulse Ox O2 Delivery O2 Flow Rate FiO2 04/23/20 09:44 85 140/96 04/23/20 07:11 99.7 20 96 Room Air Current Medications Current Medications Medications (Trade) Dose Ordered Sig/Shanell Route PRN Reason Start Time Stop Time Status Last Admin Dose Admin Acetaminophen (Tylenol Tab) 650 mg Q6HP PRN PO HEADACHE or DISCOMFORT 04/09/20 15:35 Al Hydrox/Mg Hydrox/Simethicone (Mylanta) 30 ml Q4HP PRN PO HEARTBURN/INDIGESTION 04/09/20 15:35 Albuterol Sulfate (Proventil, Ventolin Hfa) 2 puff Q4H PRN INH wheezing 04/11/20 19:25 Albuterol/ Ipratropium (Combivent Respimat 100-20mcg) 1 puff RQ6H INH 04/09/20 20:00 04/23/20 08:40 Amitriptyline HCl (Elavil) 25 mg QHS PO 04/10/20 21:00 04/21/20 11:16 DC 04/20/20 20:25 Amitriptyline HCl (Elavil) 100 mg QHS PO 04/10/20 21:00 04/21/20 11:19 DC 04/20/20 20:25 Aspirin (Ecotrin) 81 mg DAILY PO 04/10/20 09:00 04/23/20 09:44 Atorvastatin Calcium (Lipitor) 40 mg DAILY PO 04/10/20 09:00 04/22/20 06:40 DC 04/20/20 08:58 Benztropine Mesylate (Cogentin) 0.5 mg BIDP PRN PO eps 04/22/20 08:55 Diphenhydramine HCl (Benadryl) 75 mg STAT STAT PO 04/15/20 21:58 04/15/20 21:59 Cancel Diphenhydramine HCl (Benadryl) 75 mg STAT STAT PO 04/15/20 22:09 04/15/20 22:10 Cancel Diphenhydramine HCl (Benadryl) 75 mg STAT STAT PO 04/15/20 22:12 04/15/20 22:14 DC 04/15/20 22:45 Gabapentin (Neurontin) 600 mg QHS PO 04/09/20 21:00 04/21/20 11:16 DC 04/20/20 20:25 Haloperidol (Haldol) 5 mg BID PO 04/22/20 09:00 04/23/20 09:44 Home Med (Med Rec Complete!) ASDIRECTED XX 04/09/20 14:35 04/09/20 14:39 DC Lorazepam (Ativan) 1 mg STAT STAT PO 04/13/20 11:22 04/13/20 11:24 DC 04/13/20 11:32 Magnesium Hydroxide (Milk Of Magnesia) 30 ml DAILYPRN PRN PO CONSTIPATION 04/09/20 15:35 Morphine Sulfate (Ms Contin) 15 mg BID PO 04/10/20 09:00 04/21/20 11:16 DC 04/20/20 20:26 Morphine Sulfate (Ms Contin) 15 mg DAILY PO 04/21/20 09:00 04/21/20 16:13 DC 04/21/20 12:30 Morphine Sulfate (Ms Contin) 15 mg Q8H PO 04/10/20 08:00 04/10/20 10:23 DC Nicotine (Nicoderm Cq 21mg) 1 patch DAILY TD 04/10/20 09:00 04/20/20 09:00 Olanzapine (ZyPREXA ZYDIS) 5 mg Q4HP PRN PO AGITATION 04/09/20 15:35 04/15/20 12:30 DC 04/15/20 06:37 Olanzapine (ZyPREXA ZYDIS) 5 mg Q6HP PRN PO ANXIETY/AGITATION 04/15/20 21:00 04/22/20 06:40 DC 04/20/20 06:28 Olanzapine (ZyPREXA) 2.5 mg BID PO 04/12/20 09:00 04/14/20 09:02 DC 04/13/20 20:03 Olanzapine (ZyPREXA) 2.5 mg QHS PO 04/11/20 21:00 04/12/20 12:38 DC 04/11/20 20:13 Olanzapine (ZyPREXA) 5 mg BID PO 04/14/20 09:00 04/15/20 20:50 DC 04/15/20 08:01 Olanzapine (ZyPREXA) 5 mg DAILY PO 04/16/20 09:00 Cancel Olanzapine (ZyPREXA) 10 mg QHS PO 04/15/20 21:00 Cancel Omeprazole (PriLOSEC) 40 mg DAILY PO 04/10/20 09:00 04/23/20 09:44 Paliperidone (Invega) 3 mg BID PO 04/15/20 21:00 04/21/20 11:16 DC 04/20/20 20:25 Propranolol HCl (Inderal) 20 mg TID PO 04/09/20 21:00 04/23/20 09:44 Sucralfate (Carafate) 1 gm AC PO 04/10/20 12:00 04/21/20 06:31 Trazodone HCl (Desyrel) 25 mg QHSP PRN PO INSOMNIA 04/11/20 12:05 04/15/20 12:30 DC 04/14/20 20:27 Trazodone HCl (Desyrel) 50 mg QHSP PRN PO INSOMNIA 04/09/20 15:35 04/11/20 12:07 DC Allergies Coded Allergies: Penicillins (Verified Allergy, Intermediate, HIVES, 04/09/20) GIFTY BENITEZ MD Apr 23, 2020 12:07
[2020-04-23 19:12] VITALS: BP 144/92
[2020-04-23] MEDS: ALBUTEROL 90 MCG/ACT 8GM HFA INHALER INH PRN (23:22)
[2020-04-24] MEDS: COMBIVENT RESPIMAT 100-20MCG INHALER 4GM INH SCH ×4 (01:20→20:00)
[2020-04-24 06:00] VITALS: BP 136/82
[2020-04-24] MEDS: SUCRALFATE 1 GM TAB PO SCH ×3 (06:51→16:38)
[2020-04-24] MEDS: PROPRANOLOL 20 MG TAB PO SCH ×3 (08:17→20:41)
[2020-04-24] MEDS: OMEPRAZOLE 20 MG CAP PO SCH (08:17)
[2020-04-24] MEDS: ASPIRIN 81MG ENTERIC TABLET PO SCH (08:17)
[2020-04-24] MEDS: NICOTINE 21MG/24HR 1 EA TRANSDERMAL TD SCH (08:18)
[2020-04-24] MEDS ORDERED: VENLAFAXINE 37.5 MG TAB PO SCH (09:00)
--- NOTE | 2020-04-24 10:47 | MHIPNPDOC ---
[facility] Progress Note Progress Note DATE OF SERVICE: 04/24/20 HISTORY: 55-year-old male that presented in the ER with odd symptoms of thinking his organs were being rearranged complaining of poor breathing. Milagro Ramsey and I agreed last week that this patient was experiencing delirium. For this reason, we both decided to discontinue all of his medications except cardiac. I also discontinued haldol. Apparently last night he did not sleep, which may have been due to or withdrawal of all medications. Today he at least this morning seems clear conversant and has eaten. He claims this morning. He has having no breathing problems. VITAL SIGNS: See below. NEW TEST RESULTS: EEG ordered, but may be unnecessary at this time. CURRENT MEDICATIONS: See below. MENTAL STATUS EXAMINATION: Patient is a 55-year old male, who is improving and eye contact eating less complaints about his breathing but still bears watching. Speech: Is unremarkable, but repetitive. Language skills are no gross disturbance. Thought processes including: Variable. Thought content:, Can vary from rational to oddly repetitive. Abstract reasoning, and computation:. No abstract reasoning. Description of associations :. No loose association. Description of abnormal or psychotic thoughts:, Not noticed this morning, but yesterday reepetitively requested razor. Judgment: Not determined yet. Insight: May be improving. Orientation: 3. Recent and remote memory:. Poor. Attention span and concentration: Poor. Language: Intact. Fund of knowledge: Not measurable yet. Mood: Pleasant. Affect: Congruent. DIAGNOSES: 1.. Acute encephalopathy. 2. None. 3. None. ASSESSMENT: As above MANAGEMENT PLAN: Needs continued observation as to changing levels of consciousness. TIME SPENT: 30 minutes. Vital Signs Vital Signs Date Time Temp Pulse Resp B/P (MAP) Pulse Ox O2 Delivery O2 Flow Rate FiO2 04/24/20 08:17 108 138/98 04/24/20 06:00 99.1 18 97 04/23/20 07:11 Room Air Current Medications Current Medications Medications (Trade) Dose Ordered Sig/Shanell Route PRN Reason Start Time Stop Time Status Last Admin Dose Admin Acetaminophen (Tylenol Tab) 650 mg Q6HP PRN PO HEADACHE or DISCOMFORT 04/09/20 15:35 04/23/20 19:29 Al Hydrox/Mg Hydrox/Simethicone (Mylanta) 30 ml Q4HP PRN PO HEARTBURN/INDIGESTION 04/09/20 15:35 Albuterol Sulfate (Proventil, Ventolin Hfa) 2 puff Q4H PRN INH wheezing 04/11/20 19:25 04/23/20 23:22 Albuterol/ Ipratropium (Combivent Respimat 100-20mcg) 1 puff RQ6H INH 04/09/20 20:00 04/24/20 08:11 Amitriptyline HCl (Elavil) 25 mg QHS PO 04/10/20 21:00 04/21/20 11:16 DC 04/20/20 20:25 Amitriptyline HCl (Elavil) 100 mg QHS PO 04/10/20 21:00 04/21/20 11:19 DC 04/20/20 20:25 Aspirin (Ecotrin) 81 mg DAILY PO 04/10/20 09:00 04/24/20 08:17 Atorvastatin Calcium (Lipitor) 40 mg DAILY PO 04/10/20 09:00 04/22/20 06:40 DC 04/20/20 08:58 Benztropine Mesylate (Cogentin) 0.5 mg BIDP PRN PO eps 04/22/20 08:55 04/23/20 15:35 DC Diphenhydramine HCl (Benadryl) 75 mg STAT STAT PO 04/15/20 21:58 04/15/20 21:59 Cancel Diphenhydramine HCl (Benadryl) 75 mg STAT STAT PO 04/15/20 22:09 04/15/20 22:10 Cancel Diphenhydramine HCl (Benadryl) 75 mg STAT STAT PO 04/15/20 22:12 04/15/20 22:14 DC 04/15/20 22:45 Gabapentin (Neurontin) 600 mg QHS PO 04/09/20 21:00 04/21/20 11:16 DC 04/20/20 20:25 Haloperidol (Haldol) 5 mg BID PO 04/22/20 09:00 04/23/20 15:34 DC 04/23/20 09:44 Home Med (Med Rec Complete!) ASDIRECTED XX 04/09/20 14:35 04/09/20 14:39 DC Lorazepam (Ativan) 1 mg STAT STAT PO 04/13/20 11:22 04/13/20 11:24 DC 04/13/20 11:32 Magnesium Hydroxide (Milk Of Magnesia) 30 ml DAILYPRN PRN PO CONSTIPATION 04/09/20 15:35 Morphine Sulfate (Ms Contin) 15 mg BID PO 04/10/20 09:00 04/21/20 11:16 DC 04/20/20 20:26 Morphine Sulfate (Ms Contin) 15 mg DAILY PO 04/21/20 09:00 04/21/20 16:13 DC 04/21/20 12:30 Morphine Sulfate (Ms Contin) 15 mg Q8H PO 04/10/20 08:00 04/10/20 10:23 DC Nicotine (Nicoderm Cq 21mg) 1 patch DAILY TD 04/10/20 09:00 04/24/20 08:18 Olanzapine (ZyPREXA ZYDIS) 5 mg Q4HP PRN PO AGITATION 04/09/20 15:35 04/15/20 12:30 DC 04/15/20 06:37 Olanzapine (ZyPREXA ZYDIS) 5 mg Q6HP PRN PO ANXIETY/AGITATION 04/15/20 21:00 04/22/20 06:40 DC 04/20/20 06:28 Olanzapine (ZyPREXA) 2.5 mg BID PO 04/12/20 09:00 04/14/20 09:02 DC 04/13/20 20:03 Olanzapine (ZyPREXA) 2.5 mg QHS PO 04/11/20 21:00 04/12/20 12:38 DC 04/11/20 20:13 Olanzapine (ZyPREXA) 5 mg BID PO 04/14/20 09:00 04/15/20 20:50 DC 04/15/20 08:01 Olanzapine (ZyPREXA) 5 mg DAILY PO 04/16/20 09:00 Cancel Olanzapine (ZyPREXA) 10 mg QHS PO 04/15/20 21:00 Cancel Omeprazole (PriLOSEC) 40 mg DAILY PO 04/10/20 09:00 04/24/20 08:17 Paliperidone (Invega) 3 mg BID PO 04/15/20 21:00 04/21/20 11:16 DC 04/20/20 20:25 Propranolol HCl (Inderal) 20 mg TID PO 04/09/20 21:00 04/24/20 08:17 Sucralfate (Carafate) 1 gm AC PO 04/10/20 12:00 04/24/20 06:51 Trazodone HCl (Desyrel) 25 mg QHSP PRN PO INSOMNIA 04/11/20 12:05 04/15/20 12:30 DC 04/14/20 20:27 Trazodone HCl (Desyrel) 50 mg QHSP PRN PO INSOMNIA 04/09/20 15:35 04/11/20 12:07 DC Allergies Coded Allergies: Penicillins (Verified Allergy, Intermediate, HIVES, 04/09/20) GIFTY BENITEZ MD Apr 24, 2020 10:47
[2020-04-24 18:05] VITALS: BP 148/102
[2020-04-25] MEDS: COMBIVENT RESPIMAT 100-20MCG INHALER 4GM INH SCH ×4 (02:00→19:55)
[2020-04-25] MEDS: SUCRALFATE 1 GM TAB PO SCH ×3 (06:40→16:58)
[2020-04-25 07:07] VITALS: BP 148/92
[2020-04-25] MEDS: PROPRANOLOL 20 MG TAB PO SCH ×3 (09:13→19:55)
[2020-04-25] MEDS: OMEPRAZOLE 20 MG CAP PO SCH (09:13)
[2020-04-25] MEDS: ASPIRIN 81MG ENTERIC TABLET PO SCH (09:13)
[2020-04-25] MEDS: NICOTINE 21MG/24HR 1 EA TRANSDERMAL TD SCH (09:13)
[2020-04-25] MEDS: VENLAFAXINE **XR** 75MG CAPSULE PO SCH (09:13)
--- NOTE | 2020-04-25 16:04 | MHIPNPDOC ---
[facility] Progress Note Progress Note DATE OF SERVICE: 04/25/20 Today is Day 16 for this patient's admission. He is a 55-year-old , Unemployed, Domiciled, admitted to inpatient mental health unit for unspecified psychotic disorder. He was brought to ED for making SI and bizarre statements to his . Pt stated he was looking for Drain-O to drink. He remains delusional and bizarre in his statements. Patient had many days of alternating lucidity and delusional and bizarre thinking. We had made a decision to discontinue all of his medications as his main symptom after being admitted was changing consciousness. We made the assumptive diagnosis of delirium based not only on his condition, but also a recognition that he had a past history of admissions with encephalopathy VITAL SIGNS: See below. CURRENT MEDICATIONS: See below. MENTAL STATUS EXAMINATION: He is a 55-year-old , Unemployed, Domiciled, admitted to inpatient mental health unit for unspecified psychotic disorder Patient is a 55-year old male, who is sitting in the cafeteria socializing with patient's eating and able to answer questions clearly. Speech: Is clear. Language skills are. intact Thought processes including: No disturbance. Thought content: denies depression, anxiety, suicidal or homicidal ideation Abstract reasoning, and computation: variable Description of associations: no loose association. Description of abnormal or psychotic thoughts:. No psychotic thought today when interviewed Judgment:. fair to poor various times of the day Insight: fair to poor various times of the day Orientation: 3. Recent and remote memory: Intact. Today. Attention span and concentration: Intact. Today. Language: No gross disturbance. Fund of knowledge: average Mood: Euthymic. Affect: Congruent. DIAGNOSES: Acute encephalopathy. Generalized Anxiety Disorder Nicotine Use Disorder ASSESSMENT: In today's interview, patient's cognition is improved but his affect is increasingly flat. He denies depression and anxiety and states that he wants to go home. He does appear to have improvement but according to treatment team, patient had moments of bizarre behaviors. Per primary RN - responding with long pauses of silence, having internal stimuli, has difficulty answering questions about his mood, was observed running almost into other patient and not moving out of the way, staring absent-minded into space, flat affect. MANAGEMENT PLAN: Continue all medications as ordered. Patient is not ready for discharge, he continues to have changing levels of cognition. Will discharge when his attention, cognition is more stable. TIME SPENT: 25 minutes. Vital Signs Vital Signs Date Time Temp Pulse Resp B/P (MAP) Pulse Ox O2 Delivery O2 Flow Rate FiO2 04/25/20 15:27 92 138/82 04/25/20 07:07 98.4 16 99 Room Air Current Medications Current Medications Medications (Trade) Dose Ordered Sig/Shanell Route PRN Reason Start Time Stop Time Status Last Admin Dose Admin Acetaminophen (Tylenol Tab) 650 mg Q6HP PRN PO HEADACHE or DISCOMFORT 04/09/20 15:35 04/23/20 19:29 Al Hydrox/Mg Hydrox/Simethicone (Mylanta) 30 ml Q4HP PRN PO HEARTBURN/INDIGESTION 04/09/20 15:35 Albuterol Sulfate (Proventil, Ventolin Hfa) 2 puff Q4H PRN INH wheezing 04/11/20 19:25 04/23/20 23:22 Albuterol/ Ipratropium (Combivent Respimat 100-20mcg) 1 puff RQ6H INH 04/09/20 20:00 04/25/20 13:51 Amitriptyline HCl (Elavil) 25 mg QHS PO 04/10/20 21:00 04/21/20 11:16 DC 04/20/20 20:25 Amitriptyline HCl (Elavil) 100 mg QHS PO 04/10/20 21:00 04/21/20 11:19 DC 04/20/20 20:25 Aspirin (Ecotrin) 81 mg DAILY PO 04/10/20 09:00 04/25/20 09:13 Atorvastatin Calcium (Lipitor) 40 mg DAILY PO 04/10/20 09:00 04/22/20 06:40 DC 04/20/20 08:58 Benztropine Mesylate (Cogentin) 0.5 mg BIDP PRN PO eps 04/22/20 08:55 04/23/20 15:35 DC Diphenhydramine HCl (Benadryl) 75 mg STAT STAT PO 04/15/20 21:58 04/15/20 21:59 Cancel Diphenhydramine HCl (Benadryl) 75 mg STAT STAT PO 04/15/20 22:09 04/15/20 22:10 Cancel Diphenhydramine HCl (Benadryl) 75 mg STAT STAT PO 04/15/20 22:12 04/15/20 22:14 DC 04/15/20 22:45 Gabapentin (Neurontin) 600 mg QHS PO 04/09/20 21:00 04/21/20 11:16 DC 04/20/20 20:25 Haloperidol (Haldol) 5 mg BID PO 04/22/20 09:00 04/23/20 15:34 DC 04/23/20 09:44 Home Med (Med Rec Complete!) ASDIRECTED XX 04/09/20 14:35 04/09/20 14:39 DC Lorazepam (Ativan) 1 mg STAT STAT PO 04/13/20 11:22 04/13/20 11:24 DC 04/13/20 11:32 Magnesium Hydroxide (Milk Of Magnesia) 30 ml DAILYPRN PRN PO CONSTIPATION 04/09/20 15:35 Morphine Sulfate (Ms Contin) 15 mg BID PO 04/10/20 09:00 04/21/20 11:16 DC 04/20/20 20:26 Morphine Sulfate (Ms Contin) 15 mg DAILY PO 04/21/20 09:00 04/21/20 16:13 DC 04/21/20 12:30 Morphine Sulfate (Ms Contin) 15 mg Q8H PO 04/10/20 08:00 04/10/20 10:23 DC Nicotine (Nicoderm Cq 21mg) 1 patch DAILY TD 04/10/20 09:00 04/25/20 09:13 Olanzapine (ZyPREXA ZYDIS) 5 mg Q4HP PRN PO AGITATION 04/09/20 15:35 04/15/20 12:30 DC 04/15/20 06:37 Olanzapine (ZyPREXA ZYDIS) 5 mg Q6HP PRN PO ANXIETY/AGITATION 04/15/20 21:00 04/22/20 06:40 DC 04/20/20 06:28 Olanzapine (ZyPREXA) 2.5 mg BID PO 04/12/20 09:00 04/14/20 09:02 DC 04/13/20 20:03 Olanzapine (ZyPREXA) 2.5 mg QHS PO 04/11/20 21:00 04/12/20 12:38 DC 04/11/20 20:13 Olanzapine (ZyPREXA) 5 mg BID PO 04/14/20 09:00 04/15/20 20:50 DC 04/15/20 08:01 Olanzapine (ZyPREXA) 5 mg DAILY PO 04/16/20 09:00 Cancel Olanzapine (ZyPREXA) 10 mg QHS PO 04/15/20 21:00 Cancel Omeprazole (PriLOSEC) 40 mg DAILY PO 04/10/20 09:00 04/25/20 09:13 Paliperidone (Invega) 3 mg BID PO 04/15/20 21:00 04/21/20 11:16 DC 04/20/20 20:25 Propranolol HCl (Inderal) 20 mg TID PO 04/09/20 21:00 04/25/20 15:27 Sucralfate (Carafate) 1 gm AC PO 04/10/20 12:00 04/25/20 11:45 Trazodone HCl (Desyrel) 25 mg QHSP PRN PO INSOMNIA 04/11/20 12:05 04/15/20 12:30 DC 04/14/20 20:27 Trazodone HCl (Desyrel) 50 mg QHSP PRN PO INSOMNIA 04/09/20 15:35 04/11/20 12:07 DC Venlafaxine HCl (Effexor Xr) 75 mg QAM PO 04/25/20 09:00 04/25/20 09:13 Venlafaxine HCl (Effexor) 75 mg DAILY PO 04/24/20 09:00 04/24/20 15:59 DC Allergies Coded Allergies: Penicillins (Verified Allergy, Intermediate, HIVES, 04/09/20) ANTONY ZALDIVAR NP Apr 25, 2020 15:59
[2020-04-25 16:25] VITALS: BP 138/82
[2020-04-25 17:07] LABS: ANTINUCLEAR ANTIBODIES DIRECT Negative (Negative); LEAD BLOOD ADULT <1 ug/dL (0-4)
[2020-04-26] MEDS: COMBIVENT RESPIMAT 100-20MCG INHALER 4GM INH SCH ×4 (01:48→21:10)
[2020-04-26] MEDS: SUCRALFATE 1 GM TAB PO SCH ×3 (06:30→17:30)
[2020-04-26 06:39] VITALS: BP 143/85
[2020-04-26] MEDS ORDERED: VENLAFAXINE **XR** 37.5 MG CAPSULE PO SCH (09:00)
[2020-04-26] MEDS: VENLAFAXINE **XR** 75MG CAPSULE PO SCH (09:33)
[2020-04-26] MEDS: OMEPRAZOLE 20 MG CAP PO SCH (09:33)
[2020-04-26] MEDS: ASPIRIN 81MG ENTERIC TABLET PO SCH (09:33)
[2020-04-26] MEDS: NICOTINE 21MG/24HR 1 EA TRANSDERMAL TD SCH (09:34)
[2020-04-26] MEDS: PROPRANOLOL 20 MG TAB PO SCH ×3 (09:37→21:00)
[2020-04-26 09:38] VITALS: BP 159/110
[2020-04-26 11:13] VITALS: BP 128/78
--- NOTE | 2020-04-26 14:14 | MHIPNPDOC ---
[facility] Progress Note Progress Note DATE OF SERVICE: 04/26/20 Today is Day 17 for this patient's admission. He is a 55-year-old , Unemployed, Domiciled, admitted to inpatient mental health unit for unspecified psychotic disorder. He was brought to ED for making SI and bizarre statements to his . Pt stated he was looking for Drain-O to drink. He remains delusional and bizarre in his statements. Patient had many days of alternating lucidity and delusional and bizarre thinking. We had made a decision to discontinue all of his medications as his main symptom after being admitted was changing consciousness. We made the assumptive diagnosis of delirium based not only on his condition, but also a recognition that he had a past history of admissions with encephalopathy VITAL SIGNS: See below. CURRENT MEDICATIONS: See below. MENTAL STATUS EXAMINATION: He is a 55-year-old , Unemployed, Domiciled, admitted to inpatient mental health unit for unspecified psychotic disorder Patient is a 55-year old male, who is sitting in the cafeteria socializing with patient's eating and able to answer questions clearly. Speech: Is clear. Language skills are. intact Thought processes including: No disturbance. Thought content: denies depression, anxiety, suicidal or homicidal ideation Abstract reasoning, and computation: variable Description of associations: no loose association. Description of abnormal or psychotic thoughts:. No psychotic thought today when interviewed Judgment:. fair to poor various times of the day Insight: fair to poor various times of the day Orientation: 3. Recent and remote memory: varies Attention span and concentration: poor Language: No gross disturbance. Fund of knowledge: average Mood: Euthymic. Affect: flat/blunted DIAGNOSES: Acute encephalopathy. Generalized Anxiety Disorder Nicotine Use Disorder ASSESSMENT: Patient remains mildly to moderately confused at times according to staff, he does not attend groups. Patient He reports improved cognition and no depression or anxiety. He has delayed responses to questions. At times has difficulty explaining his wishes. but states that he wants to go home. He still has poor insight and judgment and because of this it is difficult to discharge this patient because his symptoms control is so tenuous that immediate hospitalization highly likely if patient is discharged. MANAGEMENT PLAN: Continue all medications as ordered. Patient is not ready for discharge, he continues to have changing levels of cognition. Will discharge when his attention, cognition is more stable. TIME SPENT: 25 minutes. Vital Signs Vital Signs Date Time Temp Pulse Resp B/P (MAP) Pulse Ox O2 Delivery O2 Flow Rate FiO2 04/26/20 11:13 78 128/78 (95) 04/26/20 06:39 98.9 16 98 04/25/20 16:25 Room Air Current Medications Current Medications Medications (Trade) Dose Ordered Sig/Shanell Route PRN Reason Start Time Stop Time Status Last Admin Dose Admin Acetaminophen (Tylenol Tab) 650 mg Q6HP PRN PO HEADACHE or DISCOMFORT 04/09/20 15:35 04/23/20 19:29 Al Hydrox/Mg Hydrox/Simethicone (Mylanta) 30 ml Q4HP PRN PO HEARTBURN/INDIGESTION 04/09/20 15:35 Albuterol Sulfate (Proventil, Ventolin Hfa) 2 puff Q4H PRN INH wheezing 04/11/20 19:25 04/23/20 23:22 Albuterol/ Ipratropium (Combivent Respimat 100-20mcg) 1 puff RQ6H INH 04/09/20 20:00 04/26/20 07:34 Amitriptyline HCl (Elavil) 25 mg QHS PO 04/10/20 21:00 04/21/20 11:16 DC 04/20/20 20:25 Amitriptyline HCl (Elavil) 100 mg QHS PO 04/10/20 21:00 04/21/20 11:19 DC 04/20/20 20:25 Aspirin (Ecotrin) 81 mg DAILY PO 04/10/20 09:00 04/26/20 09:33 Atorvastatin Calcium (Lipitor) 40 mg DAILY PO 04/10/20 09:00 04/22/20 06:40 DC 04/20/20 08:58 Benztropine Mesylate (Cogentin) 0.5 mg BIDP PRN PO eps 04/22/20 08:55 04/23/20 15:35 DC Diphenhydramine HCl (Benadryl) 75 mg STAT STAT PO 04/15/20 21:58 04/15/20 21:59 Cancel Diphenhydramine HCl (Benadryl) 75 mg STAT STAT PO 04/15/20 22:09 04/15/20 22:10 Cancel Diphenhydramine HCl (Benadryl) 75 mg STAT STAT PO 04/15/20 22:12 04/15/20 22:14 DC 04/15/20 22:45 Gabapentin (Neurontin) 600 mg QHS PO 04/09/20 21:00 04/21/20 11:16 DC 04/20/20 20:25 Haloperidol (Haldol) 5 mg BID PO 04/22/20 09:00 04/23/20 15:34 DC 04/23/20 09:44 Home Med (Med Rec Complete!) ASDIRECTED XX 04/09/20 14:35 04/09/20 14:39 DC Lorazepam (Ativan) 1 mg STAT STAT PO 04/13/20 11:22 04/13/20 11:24 DC 04/13/20 11:32 Magnesium Hydroxide (Milk Of Magnesia) 30 ml DAILYPRN PRN PO CONSTIPATION 04/09/20 15:35 Morphine Sulfate (Ms Contin) 15 mg BID PO 04/10/20 09:00 04/21/20 11:16 DC 04/20/20 20:26 Morphine Sulfate (Ms Contin) 15 mg DAILY PO 04/21/20 09:00 04/21/20 16:13 DC 04/21/20 12:30 Morphine Sulfate (Ms Contin) 15 mg Q8H PO 04/10/20 08:00 04/10/20 10:23 DC Nicotine (Nicoderm Cq 21mg) 1 patch DAILY TD 04/10/20 09:00 04/26/20 09:34 Olanzapine (ZyPREXA ZYDIS) 5 mg Q4HP PRN PO AGITATION 04/09/20 15:35 04/15/20 12:30 DC 04/15/20 06:37 Olanzapine (ZyPREXA ZYDIS) 5 mg Q6HP PRN PO ANXIETY/AGITATION 04/15/20 21:00 04/22/20 06:40 DC 04/20/20 06:28 Olanzapine (ZyPREXA) 2.5 mg BID PO 04/12/20 09:00 04/14/20 09:02 DC 04/13/20 20:03 Olanzapine (ZyPREXA) 2.5 mg QHS PO 04/11/20 21:00 04/12/20 12:38 DC 04/11/20 20:13 Olanzapine (ZyPREXA) 5 mg BID PO 04/14/20 09:00 04/15/20 20:50 DC 04/15/20 08:01 Olanzapine (ZyPREXA) 5 mg DAILY PO 04/16/20 09:00 Cancel Olanzapine (ZyPREXA) 10 mg QHS PO 04/15/20 21:00 Cancel Omeprazole (PriLOSEC) 40 mg DAILY PO 04/10/20 09:00 04/26/20 09:33 Paliperidone (Invega) 3 mg BID PO 04/15/20 21:00 04/21/20 11:16 DC 04/20/20 20:25 Propranolol HCl (Inderal) 20 mg TID PO 04/09/20 21:00 04/26/20 09:37 Sucralfate (Carafate) 1 gm AC PO 04/10/20 12:00 04/26/20 06:30 Trazodone HCl (Desyrel) 25 mg QHSP PRN PO INSOMNIA 04/11/20 12:05 04/15/20 12:30 DC 04/14/20 20:27 Trazodone HCl (Desyrel) 50 mg QHSP PRN PO INSOMNIA 04/09/20 15:35 04/11/20 12:07 DC Venlafaxine HCl (Effexor Xr) 37.5 mg QAM PO 04/26/20 09:00 04/26/20 09:33 Venlafaxine HCl (Effexor Xr) 75 mg QAM PO 04/25/20 09:00 04/26/20 09:33 Venlafaxine HCl (Effexor) 75 mg DAILY PO 04/24/20 09:00 04/24/20 15:59 DC Allergies Coded Allergies: Penicillins (Verified Allergy, Intermediate, HIVES, 04/09/20) ANTONY ZALDIVAR NP Apr 26, 2020 14:14
[2020-04-26 16:48] VITALS: BP 148/94
[2020-04-26 17:44] VITALS: BP 180/110
[2020-04-26 18:46] VITALS: BP 168/110
[2020-04-26 19:59] LABS: TROPONIN I < 0.02 NG/ML (< 0.10)
[2020-04-27] MEDS: COMBIVENT RESPIMAT 100-20MCG INHALER 4GM INH SCH ×5 (01:31→20:07)
[2020-04-27 06:38] VITALS: BP 144/92
[2020-04-27] MEDS: SUCRALFATE 1 GM TAB PO SCH ×3 (07:13→17:30)
[2020-04-27 07:55] VITALS: BP 162/110
[2020-04-27] MEDS: OMEPRAZOLE 20 MG CAP PO SCH (08:05)
[2020-04-27] MEDS: VENLAFAXINE **XR** 75MG CAPSULE PO SCH (08:05)
[2020-04-27] MEDS: PROPRANOLOL 20 MG TAB PO SCH ×3 (08:05→19:01)
[2020-04-27] MEDS: ASPIRIN 81MG ENTERIC TABLET PO SCH (08:05)
[2020-04-27] MEDS: NICOTINE 21MG/24HR 1 EA TRANSDERMAL TD SCH (08:06)
--- NOTE | 2020-04-27 13:53 | IPNPDOC ---
Subjective Date Seen The patient was seen on 04/27/20. Subjective Chief Complaint/HPI [facility] staff noted patient to be unresponsive last night and had difficulty waking him up and again this morning he was difficult to arouse so requested the hospitalist to see him. when i went to see him he was walking in the corridor with symmetrical gait. He denied any weakness of his upper or lower extremity, denied any trouble talking or eating. His voice was soft but speech was clear. there was no aphasia. he denied any chest pain or sob. He reported that he is feeling well. Objective Physical Examination General Exam: Positive: Alert, Cooperative, No Acute Distress Eye Exam: Positive: PERRLA, Conjunctiva & lids normal, EOMI; Negative: Sclera icteric ENT Exam: Positive: Atraumatic, Mucous membr. moist/pink, Pharynx Normal Neck Exam: Positive: Supple; Negative: JVD, thyromegaly Chest Exam: Positive: Clear to auscultation, Normal air movement; Negative: Rales, Rhonchi, Wheezing Heart Exam: Positive: Rate Normal, Regular Rhythm; Negative: Murmurs Abdomen Exam: Positive: Normal bowel sounds, Soft, Tenderness (reported in b/l upper quadrants), Other (active/delayed guarding with palpation) Extremity Exam: Negative: Edema Skin Exam: Positive: Nl turgor and temperature Neuro Exam: Positive: Normal Gait, Normal Speech, Strength at 5/5 X4 ext, Normal Tone Assessment /Plan Assessment Episodes of Confusion/ difficult to arouse while in the hospital at present seems at baseline. walking and talking normally Had a CT head on 04/20 which was normal. will get MRI to rule out any stroke. continue ASA Hypertension on propranolol will restart the other home Valsartan and amlodipine. Depression/ psychosis as per psychiatry Gastritis/ GERD PPI and sucralfate COPD on combivent. Plan/VTE VTE Prophylaxis Ordered?: No (ambulating, in [facility]) VS, I&O, 24H, Fishbone Vital Signs/I&O Vital Signs Date Time Temp Pulse Resp B/P (MAP) Pulse Ox O2 Delivery O2 Flow Rate FiO2 04/27/20 08:30 Room Air 04/27/20 08:05 67 162/110 04/27/20 07:55 98.8 16 96 Laboratory Data 24H LABS Laboratory Tests 2 04/26/20 17:36: Bedside Glucose (Misc Panel) 97 04/26/20 19:20: Troponin I < 0.02 BRITTANY BROOKS MD Apr 27, 2020 13:53
[2020-04-27 14:35] LABS: BLOOD UREA NITROGEN 19 MG/DL (7-18); CALCIUM LEVEL 9.2 MG/DL (8.5-10.1); CARBON DIOXIDE LEVEL 29 MEQ/L (21-32); CHLORIDE LEVEL 107 MEQ/L (98-107); CREATININE FOR GFR 0.78 MG/DL (0.70-1.30); GLOMERULAR FILTRATION RATE > 60.0 (>56); GLUCOSE, FASTING 119 MG/DL (70-100); POTASSIUM SERUM 3.7 MEQ/L (3.5-5.1); SODIUM LEVEL 140 MEQ/L (136-145)
--- NOTE | 2020-04-27 15:05 | REPVR ---
PROCEDURE INFORMATION: Exam: MR Head Without Contrast Exam date and time: 04/27/2020 1:49 PM Age: 55 years old Clinical indication: Weakness, extremity; Bilateral; Additional info: Tia/stroke TECHNIQUE: Imaging protocol: MR of the head without contrast. COMPARISON: MRI-Brain without Contrast 03/01/2020 2:05 AM FINDINGS: Brain: There is no acute intracranial hemorrhage, cerebral edema, or midline shift. No restricted diffusion is present to suggest acute infarction. Cerebral ventricles: No hydrocephalus. Bones/joints: Unremarkable. Paranasal sinuses: Normal as visualized. No acute sinusitis. Mastoid air cells: Normal as visualized. No mastoid effusion. Orbital cavity: Unremarkable. Soft tissues: Unremarkable. IMPRESSION: No acute findings. Electronically signed by: Aung Holland On 04/27/2020 15:05:00 PM
--- NOTE | 2020-04-27 15:28 | MHIPNPDOC ---
[facility] Progress Note Progress Note DATE OF SERVICE: 04/27/20 Today is Day 18 for this patient's admission. He is a 55-year-old , Unemployed, Domiciled, admitted to inpatient mental health unit for unspecified psychotic disorder. He was brought to ED for making SI and bizarre statements to his . Pt stated he was looking for Drain-O to drink. He remains delusional and bizarre in his statements. Patient had many days of alternating lucidity and delusional and bizarre thinking. We had made a decision to discontinue all of his medications as his main symptom after being admitted was changing consciousness. We made the assumptive diagnosis of delirium based not only on his condition, but also a recognition that he had a past history of admissions with encephalopathy VITAL SIGNS: See below. CURRENT MEDICATIONS: See below. MENTAL STATUS EXAMINATION: He is a 55-year-old , Unemployed, Domiciled, admitted to inpatient mental health unit for unspecified psychotic disorder Patient is a 55-year old male, who is sitting in the cafeteria socializing with patient's eating and able to answer questions clearly. Speech: Is slow rate, low tone and volume. Has delayed responses Language skills are. intact Thought processes including: No disturbance. Thought content: denies depression, anxiety, suicidal or homicidal ideation Abstract reasoning, and computation: variable Description of associations: no loose association. Description of abnormal or psychotic thoughts:. No psychotic thought today when interviewed Judgment:. fair to poor various times of the day Insight: fair to poor various times of the day Orientation: 3. Recent and remote memory: varies Attention span and concentration: poor Language: No gross disturbance. Fund of knowledge: average Mood: Euthymic. Affect: flat/blunted DIAGNOSES: Acute encephalopathy. Generalized Anxiety Disorder Nicotine Use Disorder ASSESSMENT: Patient had difficulty responding to RN last night, was noted to be "unresponsive" and then was noted to be difficult to arouse this morning. Patient appears to be somewhat slow in cognition and in his responses. His affect is completely flat, he denies that he had an physical abnormalities or any conditions in which nurses were concerned. And when he was oriented to this, patient stated that he does not remember this. When asked about his high blood pressure reading he responses were unusually strange because he reported that he had no concerns about his blood pressure, reports no dizziness or lightheadedness. While patient denies depression or anxiety, he has significant alteration in his cognition, delays in his responses and change in psychomotor movement. He has significant alternating memory issues during the day. Patient was told he was going to go to MRI, when he was later directed to sit in the wheelchair for the procedure, he stated "no one told me about this." He does not have and is not observed with internal stimuli for the past two days. MANAGEMENT PLAN: Continue all medications as ordered. Patient is not ready for discharge, he continues to have changing levels of cognition. Will discharge when his attention, cognition is more stable. TIME SPENT: 25 minutes. Vital Signs Vital Signs Date Time Temp Pulse Resp B/P (MAP) Pulse Ox O2 Delivery O2 Flow Rate FiO2 04/27/20 08:30 Room Air 04/27/20 08:05 67 162/110 04/27/20 07:55 98.8 16 96 Laboratory Data 24H Labs Laboratory Tests 2 04/26/20 17:36: Bedside Glucose (Misc Panel) 97 04/26/20 19:20: Anion Gap 4L, Glomerular Filtration Rate > 60.0, Calcium Level 9.2, Troponin I < 0.02 CBC/BMP Laboratory Tests 04/26/20 19:20 Current Medications Current Medications Medications (Trade) Dose Ordered Sig/Shanell Route PRN Reason Start Time Stop Time Status Last Admin Dose Admin Acetaminophen (Tylenol Tab) 650 mg Q6HP PRN PO HEADACHE or DISCOMFORT 04/09/20 15:35 04/23/20 19:29 Al Hydrox/Mg Hydrox/Simethicone (Mylanta) 30 ml Q4HP PRN PO HEARTBURN/INDIGESTION 04/09/20 15:35 Albuterol Sulfate (Proventil, Ventolin Hfa) 2 puff Q4H PRN INH wheezing 04/11/20 19:25 04/23/20 23:22 Albuterol/ Ipratropium (Combivent Respimat 100-20mcg) 1 puff RQ6H INH 04/09/20 20:00 04/27/20 14:21 Amitriptyline HCl (Elavil) 25 mg QHS PO 04/10/20 21:00 04/21/20 11:16 DC 04/20/20 20:25 Amitriptyline HCl (Elavil) 100 mg QHS PO 04/10/20 21:00 04/21/20 11:19 DC 04/20/20 20:25 Amlodipine Besylate (Norvasc) 5 mg DAILY PO 04/28/20 09:00 Aspirin (Ecotrin) 81 mg DAILY PO 04/10/20 09:00 04/27/20 08:05 Atorvastatin Calcium (Lipitor) 40 mg DAILY PO 04/10/20 09:00 04/22/20 06:40 DC 04/20/20 08:58 Benztropine Mesylate (Cogentin) 0.5 mg BIDP PRN PO eps 04/22/20 08:55 04/23/20 15:35 DC Diphenhydramine HCl (Benadryl) 75 mg STAT STAT PO 04/15/20 21:58 04/15/20 21:59 Cancel Diphenhydramine HCl (Benadryl) 75 mg STAT STAT PO 04/15/20 22:09 04/15/20 22:10 Cancel Diphenhydramine HCl (Benadryl) 75 mg STAT STAT PO 04/15/20 22:12 04/15/20 22:14 DC 04/15/20 22:45 Gabapentin (Neurontin) 600 mg QHS PO 04/09/20 21:00 04/21/20 11:16 DC 04/20/20 20:25 Haloperidol (Haldol) 5 mg BID PO 04/22/20 09:00 04/23/20 15:34 DC 04/23/20 09:44 Home Med (Med Rec Complete!) ASDIRECTED XX 04/09/20 14:35 04/09/20 14:39 DC Lorazepam (Ativan) 1 mg STAT STAT PO 04/13/20 11:22 04/13/20 11:24 DC 04/13/20 11:32 Magnesium Hydroxide (Milk Of Magnesia) 30 ml DAILYPRN PRN PO CONSTIPATION 04/09/20 15:35 Morphine Sulfate (Ms Contin) 15 mg BID PO 04/10/20 09:00 04/21/20 11:16 DC 04/20/20 20:26 Morphine Sulfate (Ms Contin) 15 mg DAILY PO 04/21/20 09:00 04/21/20 16:13 DC 04/21/20 12:30 Morphine Sulfate (Ms Contin) 15 mg Q8H PO 04/10/20 08:00 04/10/20 10:23 DC Nicotine (Nicoderm Cq 21mg) 1 patch DAILY TD 04/10/20 09:00 04/26/20 09:34 Olanzapine (ZyPREXA ZYDIS) 5 mg Q4HP PRN PO AGITATION 04/09/20 15:35 04/15/20 12:30 DC 04/15/20 06:37 Olanzapine (ZyPREXA ZYDIS) 5 mg Q6HP PRN PO ANXIETY/AGITATION 04/15/20 21:00 04/22/20 06:40 DC 04/20/20 06:28 Olanzapine (ZyPREXA) 2.5 mg BID PO 04/12/20 09:00 04/14/20 09:02 DC 04/13/20 20:03 Olanzapine (ZyPREXA) 2.5 mg QHS PO 04/11/20 21:00 04/12/20 12:38 DC 04/11/20 20:13 Olanzapine (ZyPREXA) 5 mg BID PO 04/14/20 09:00 04/15/20 20:50 DC 04/15/20 08:01 Olanzapine (ZyPREXA) 5 mg DAILY PO 04/16/20 09:00 Cancel Olanzapine (ZyPREXA) 10 mg QHS PO 04/15/20 21:00 Cancel Omeprazole (PriLOSEC) 40 mg DAILY PO 04/10/20 09:00 04/27/20 08:05 Paliperidone (Invega) 3 mg BID PO 04/15/20 21:00 04/21/20 11:16 DC 04/20/20 20:25 Propranolol HCl (Inderal) 20 mg TID PO 04/09/20 21:00 04/27/20 08:05 Sucralfate (Carafate) 1 gm AC PO 04/10/20 12:00 04/27/20 12:14 Trazodone HCl (Desyrel) 25 mg QHSP PRN PO INSOMNIA 04/11/20 12:05 04/15/20 12:30 DC 04/14/20 20:27 Trazodone HCl (Desyrel) 50 mg QHSP PRN PO INSOMNIA 04/09/20 15:35 04/11/20 12:07 DC Valsartan (Diovan) 160 mg DAILY PO 04/27/20 16:00 Venlafaxine HCl (Effexor Xr) 37.5 mg QAM PO 04/26/20 09:00 04/27/20 07:57 DC 04/26/20 09:33 Venlafaxine HCl (Effexor Xr) 75 mg QAM PO 04/25/20 09:00 04/27/20 08:05 Venlafaxine HCl (Effexor) 75 mg DAILY PO 04/24/20 09:00 04/24/20 15:59 DC Allergies Coded Allergies: Penicillins (Verified Allergy, Intermediate, HIVES, 04/09/20) ANTONY ZALDIVAR NP Apr 27, 2020 15:28
[2020-04-27 16:31] VITALS: BP 157/90
[2020-04-27] MEDS: VALSARTAN 80 MG TAB (DIOVAN) PO SCH (19:02)
[2020-04-27 19:04] VITALS: BP 159/125
[2020-04-27 23:27] VITALS: BP 138/88
[2020-04-28] MEDS: COMBIVENT RESPIMAT 100-20MCG INHALER 4GM INH SCH ×4 (02:00→20:07)
[2020-04-28 06:16] VITALS: BP 148/92
[2020-04-28] MEDS: SUCRALFATE 1 GM TAB PO SCH ×3 (07:06→17:19)
[2020-04-28] MEDS: PROPRANOLOL 20 MG TAB PO SCH ×3 (09:35→20:09)
[2020-04-28] MEDS: VALSARTAN 80 MG TAB (DIOVAN) PO SCH (09:36)
[2020-04-28] MEDS: ASPIRIN 81MG ENTERIC TABLET PO SCH (09:37)
[2020-04-28] MEDS: NICOTINE 21MG/24HR 1 EA TRANSDERMAL TD SCH (09:37)
[2020-04-28] MEDS: OMEPRAZOLE 20 MG CAP PO SCH (09:37)
[2020-04-28] MEDS: amLODIPine 5 MG TAB PO SCH (09:37)
--- NOTE | 2020-04-28 15:27 | MHIPNPDOC ---
[facility] Progress Note Progress Note DATE OF SERVICE: 04/28/20 Today is Day 19 for this patient's admission. He is a 55-year-old , Unemployed, Domiciled, admitted to inpatient mental health unit for unspecified psychotic disorder. He was brought to ED for making SI and bizarre statements to his . Pt stated he was looking for Drain-O to drink. He remains delusional and bizarre in his statements. Patient had many days of alternating lucidity and delusional and bizarre thinking. We had made a decision to discontinue all of his medications as his main symptom after being admitted was changing consciousness. We made the assumptive diagnosis of delirium based not only on his condition, but also a recognition that he had a past history of admissions with encephalopathy VITAL SIGNS: See below. CURRENT MEDICATIONS: See below. MENTAL STATUS EXAMINATION: He is a 55-year-old , Unemployed, Domiciled, admitted to inpatient mental health unit for acute encephalopathy. Patient had been having delusional and bizarre statements at home and his called the police for what seemed to be suicidality when he asked her for Drain-O to drink Speech: Is normal rate, tone and volume Language skills are. intact Thought processes including: No disturbance. Thought content: denies depression, anxiety, suicidal or homicidal ideation Abstract reasoning, and computation: variable Description of associations: no loose association. Description of abnormal or psychotic thoughts:. No psychotic thought today when interviewed Judgment:. fair to poor various times of the day Insight: fair to poor various times of the day Orientation: 3. Recent and remote memory: varies Attention span and concentration: poor Language: No gross disturbance. Fund of knowledge: average Mood: Euthymic. Affect: flat/blunted DIAGNOSES: Acute encephalopathy. Generalized Anxiety Disorder Nicotine Use Disorder ASSESSMENT: Patient in today's session reports doing very well, he is observed to be improving since yesterday. He states that he has no physical complaints, no pain or unsteadiness. He also reports no depression although he still appears to have delayed responses. His affect is very blunted and flat. He is having less inappropriate responses, but his delayed responses are a concern. He does have improvement but not enough for discharge. MANAGEMENT PLAN: Continue all medications as ordered. TIME SPENT: 25 minutes. Vital Signs Vital Signs Date Time Temp Pulse Resp B/P (MAP) Pulse Ox O2 Delivery O2 Flow Rate FiO2 04/28/20 09:37 86 148/92 04/28/20 06:16 98.0 18 97 Room Air Current Medications Current Medications Medications (Trade) Dose Ordered Sig/Shanell Route PRN Reason Start Time Stop Time Status Last Admin Dose Admin Acetaminophen (Tylenol Tab) 650 mg Q6HP PRN PO HEADACHE or DISCOMFORT 04/09/20 15:35 04/23/20 19:29 Al Hydrox/Mg Hydrox/Simethicone (Mylanta) 30 ml Q4HP PRN PO HEARTBURN/INDIGESTION 04/09/20 15:35 Albuterol Sulfate (Proventil, Ventolin Hfa) 2 puff Q4H PRN INH wheezing 04/11/20 19:25 04/23/20 23:22 Albuterol/ Ipratropium (Combivent Respimat 100-20mcg) 1 puff RQ6H INH 04/09/20 20:00 04/28/20 07:06 Amitriptyline HCl (Elavil) 25 mg QHS PO 04/10/20 21:00 04/21/20 11:16 DC 04/20/20 20:25 Amitriptyline HCl (Elavil) 100 mg QHS PO 04/10/20 21:00 04/21/20 11:19 DC 04/20/20 20:25 Amlodipine Besylate (Norvasc) 5 mg DAILY PO 04/28/20 09:00 04/28/20 09:37 Aspirin (Ecotrin) 81 mg DAILY PO 04/10/20 09:00 04/28/20 09:37 Atorvastatin Calcium (Lipitor) 40 mg DAILY PO 04/10/20 09:00 04/22/20 06:40 DC 04/20/20 08:58 Benztropine Mesylate (Cogentin) 0.5 mg BIDP PRN PO eps 04/22/20 08:55 04/23/20 15:35 DC Diphenhydramine HCl (Benadryl) 75 mg STAT STAT PO 04/15/20 21:58 04/15/20 21:59 Cancel Diphenhydramine HCl (Benadryl) 75 mg STAT STAT PO 04/15/20 22:09 04/15/20 22:10 Cancel Diphenhydramine HCl (Benadryl) 75 mg STAT STAT PO 04/15/20 22:12 04/15/20 22:14 DC 04/15/20 22:45 Gabapentin (Neurontin) 600 mg QHS PO 04/09/20 21:00 04/21/20 11:16 DC 04/20/20 20:25 Haloperidol (Haldol) 5 mg BID PO 04/22/20 09:00 04/23/20 15:34 DC 04/23/20 09:44 Home Med (Med Rec Complete!) ASDIRECTED XX 04/09/20 14:35 04/09/20 14:39 DC Lorazepam (Ativan) 1 mg STAT STAT PO 04/13/20 11:22 04/13/20 11:24 DC 04/13/20 11:32 Magnesium Hydroxide (Milk Of Magnesia) 30 ml DAILYPRN PRN PO CONSTIPATION 04/09/20 15:35 Morphine Sulfate (Ms Contin) 15 mg BID PO 04/10/20 09:00 04/21/20 11:16 DC 04/20/20 20:26 Morphine Sulfate (Ms Contin) 15 mg DAILY PO 04/21/20 09:00 04/21/20 16:13 DC 04/21/20 12:30 Morphine Sulfate (Ms Contin) 15 mg Q8H PO 04/10/20 08:00 04/10/20 10:23 DC Nicotine (Nicoderm Cq 21mg) 1 patch DAILY TD 04/10/20 09:00 04/28/20 09:37 Olanzapine (ZyPREXA ZYDIS) 5 mg Q4HP PRN PO AGITATION 04/09/20 15:35 04/15/20 12:30 DC 04/15/20 06:37 Olanzapine (ZyPREXA ZYDIS) 5 mg Q6HP PRN PO ANXIETY/AGITATION 04/15/20 21:00 04/22/20 06:40 DC 04/20/20 06:28 Olanzapine (ZyPREXA) 2.5 mg BID PO 04/12/20 09:00 04/14/20 09:02 DC 04/13/20 20:03 Olanzapine (ZyPREXA) 2.5 mg QHS PO 04/11/20 21:00 04/12/20 12:38 DC 04/11/20 20:13 Olanzapine (ZyPREXA) 5 mg BID PO 04/14/20 09:00 04/15/20 20:50 DC 04/15/20 08:01 Olanzapine (ZyPREXA) 5 mg DAILY PO 04/16/20 09:00 Cancel Olanzapine (ZyPREXA) 10 mg QHS PO 04/15/20 21:00 Cancel Omeprazole (PriLOSEC) 40 mg DAILY PO 04/10/20 09:00 04/28/20 09:37 Paliperidone (Invega) 3 mg BID PO 04/15/20 21:00 04/21/20 11:16 DC 04/20/20 20:25 Propranolol HCl (Inderal) 20 mg TID PO 04/09/20 21:00 04/28/20 09:35 Sucralfate (Carafate) 1 gm AC PO 04/10/20 12:00 04/28/20 07:06 Trazodone HCl (Desyrel) 25 mg QHSP PRN PO INSOMNIA 04/11/20 12:05 04/15/20 12:30 DC 04/14/20 20:27 Trazodone HCl (Desyrel) 50 mg QHSP PRN PO INSOMNIA 04/09/20 15:35 04/11/20 12:07 DC Valsartan (Diovan) 160 mg DAILY PO 04/27/20 16:00 04/28/20 09:36 Venlafaxine HCl (Effexor Xr) 37.5 mg QAM PO 04/26/20 09:00 04/27/20 07:57 DC 04/26/20 09:33 Venlafaxine HCl (Effexor Xr) 75 mg QAM PO 04/25/20 09:00 04/27/20 15:38 DC 04/27/20 08:05 Venlafaxine HCl (Effexor) 75 mg DAILY PO 04/24/20 09:00 04/24/20 15:59 DC Allergies Coded Allergies: Penicillins (Verified Allergy, Intermediate, HIVES, 04/09/20) ANTONY ZALDIVAR NP Apr 28, 2020 12:19
[2020-04-28 18:50] VITALS: BP 128/79
--- NOTE | 2020-04-28 21:02 | ECGEPIP ---
[facility] Test Date: 2020-04-26 Pat Name: TAMARA MONROY Department: Room: [place] [address] Gender: Male Manager Electrical: ms : 1965 Requested By: HARRY Navarrete Order Number: [id number] Reading MD: Pablo Aly Measurements Intervals [place] Rate: 69 P: 48 [place]: 116 QRS: -1 QRSD: 78 T: 66 QT: 388 QTc: 415 Interpretive Statements Normal sinus rhythm rSr' in V1 & V2 (Possible RV conduction delay) Leftward axis Decreased heart rate compared with 04/17/2020 Electronically Signed on 04-28-2020 21:01:50 EDT by Pablo Aly
[2020-04-29] MEDS: COMBIVENT RESPIMAT 100-20MCG INHALER 4GM INH SCH ×5 (02:00→21:25)
[2020-04-29 06:00] VITALS: BP 142/76
[2020-04-29] MEDS: SUCRALFATE 1 GM TAB PO SCH ×3 (07:30→17:30)
[2020-04-29] MEDS: NICOTINE 21MG/24HR 1 EA TRANSDERMAL TD SCH (10:03)
[2020-04-29] MEDS: OMEPRAZOLE 20 MG CAP PO SCH (10:04)
[2020-04-29] MEDS: ASPIRIN 81MG ENTERIC TABLET PO SCH (10:04)
[2020-04-29] MEDS: amLODIPine 5 MG TAB PO SCH (10:04)
[2020-04-29] MEDS: VALSARTAN 80 MG TAB (DIOVAN) PO SCH (10:05)
[2020-04-29] MEDS: PROPRANOLOL 20 MG TAB PO SCH ×4 (10:20→21:25)
--- NOTE | 2020-04-29 12:06 | MHIPNPDOC ---
[facility] Progress Note Progress Note DATE OF SERVICE: 04/29/20 Today is Day 19 for this patient's admission. He is a 55-year-old , Unemployed, Domiciled, admitted to inpatient mental health unit for unspecified psychotic disorder. He was brought to ED for making SI and bizarre statements to his . Pt stated he was looking for Drain-O to drink. He remains delusional and bizarre in his statements. Patient had many days of alternating lucidity and delusional and bizarre thinking. We had made a decision to discontinue all of his medications as his main symptom after being admitted was changing consciousness. We made the assumptive diagnosis of delirium based not only on his condition, but also a recognition that he had a past history of admissions with encephalopathy VITAL SIGNS: See below. CURRENT MEDICATIONS: See below. MENTAL STATUS EXAMINATION: He is a 55-year-old , Unemployed, Domiciled, admitted to inpatient mental health unit for acute encephalopathy. Patient had been having delusional and bizarre statements at home and his called the police for what seemed to be suicidality when he asked her for Drain-O to drink Speech: Is normal rate, tone and volume Language skills are. intact Thought processes including: No disturbance. Thought content: denies depression, anxiety, suicidal or homicidal ideation Abstract reasoning, and computation: variable Description of associations: no loose association. Description of abnormal or psychotic thoughts:. No psychotic thought today when interviewed Judgment:. fair Insight: fair Orientation: 3. Recent and remote memory: varies Attention span and concentration: improved Language: No gross disturbance. Fund of knowledge: average Mood: Euthymic. Affect: flat DIAGNOSES: Delirium secondary to Acute encephalopathy. Generalized Anxiety Disorder Nicotine Use Disorder ASSESSMENT: Patient states he is improving. He states that he has no physical complaints, no pain or unsteadiness. He also reports no depression, no anxiety, no suicidal or homicidal thoughts. His affect is very blunted and flat. His cognition is improving. He is having less inappropriate response. He does have improvement but not enough for discharge. He demands to be discharged today. Explained to patient reasons for continued hospitalization, most recent had hypertensive episode with altered mental status. He denied that this occurred and states he wants to call his because he is leaving today. Patient made call to his with this provider present. Explained to her the events that had occurred this week, she agrees that patient should stay over the weekend, including giving her time to take care of the medications that patient is not to be taking as of this writing. Patient agreed to stay. MANAGEMENT PLAN: Continue all medications as ordered. TIME SPENT: 25 minutes. Vital Signs Vital Signs Date Time Temp Pulse Resp B/P (MAP) Pulse Ox O2 Delivery O2 Flow Rate FiO2 04/29/20 10:20 80 164/102 04/29/20 09:45 Room Air 04/29/20 06:00 99.3 18 99 Current Medications Current Medications Medications (Trade) Dose Ordered Sig/Shanell Route PRN Reason Start Time Stop Time Status Last Admin Dose Admin Acetaminophen (Tylenol Tab) 650 mg Q6HP PRN PO HEADACHE or DISCOMFORT 04/09/20 15:35 04/23/20 19:29 Al Hydrox/Mg Hydrox/Simethicone (Mylanta) 30 ml Q4HP PRN PO HEARTBURN/INDIGESTION 04/09/20 15:35 Albuterol Sulfate (Proventil, Ventolin Hfa) 2 puff Q4H PRN INH wheezing 04/11/20 19:25 04/23/20 23:22 Albuterol/ Ipratropium (Combivent Respimat 100-20mcg) 1 puff RQ6H INH 04/09/20 20:00 04/29/20 07:30 Amitriptyline HCl (Elavil) 25 mg QHS PO 04/10/20 21:00 04/21/20 11:16 DC 04/20/20 20:25 Amitriptyline HCl (Elavil) 100 mg QHS PO 04/10/20 21:00 04/21/20 11:19 DC 04/20/20 20:25 Amlodipine Besylate (Norvasc) 5 mg DAILY PO 04/28/20 09:00 04/29/20 10:04 Aspirin (Ecotrin) 81 mg DAILY PO 04/10/20 09:00 04/29/20 10:04 Atorvastatin Calcium (Lipitor) 40 mg DAILY PO 04/10/20 09:00 04/22/20 06:40 DC 04/20/20 08:58 Benztropine Mesylate (Cogentin) 0.5 mg BIDP PRN PO eps 04/22/20 08:55 04/23/20 15:35 DC Diphenhydramine HCl (Benadryl) 75 mg STAT STAT PO 04/15/20 21:58 04/15/20 21:59 Cancel Diphenhydramine HCl (Benadryl) 75 mg STAT STAT PO 04/15/20 22:09 04/15/20 22:10 Cancel Diphenhydramine HCl (Benadryl) 75 mg STAT STAT PO 04/15/20 22:12 04/15/20 22:14 DC 04/15/20 22:45 Gabapentin (Neurontin) 600 mg QHS PO 04/09/20 21:00 04/21/20 11:16 DC 04/20/20 20:25 Haloperidol (Haldol) 5 mg BID PO 04/22/20 09:00 04/23/20 15:34 DC 04/23/20 09:44 Home Med (Med Rec Complete!) ASDIRECTED XX 04/09/20 14:35 04/09/20 14:39 DC Lorazepam (Ativan) 1 mg STAT STAT PO 04/13/20 11:22 04/13/20 11:24 DC 04/13/20 11:32 Magnesium Hydroxide (Milk Of Magnesia) 30 ml DAILYPRN PRN PO CONSTIPATION 04/09/20 15:35 Morphine Sulfate (Ms Contin) 15 mg BID PO 04/10/20 09:00 04/21/20 11:16 DC 04/20/20 20:26 Morphine Sulfate (Ms Contin) 15 mg DAILY PO 04/21/20 09:00 04/21/20 16:13 DC 04/21/20 12:30 Morphine Sulfate (Ms Contin) 15 mg Q8H PO 04/10/20 08:00 04/10/20 10:23 DC Nicotine (Nicoderm Cq 21mg) 1 patch DAILY TD 04/10/20 09:00 04/29/20 10:03 Olanzapine (ZyPREXA ZYDIS) 5 mg Q4HP PRN PO AGITATION 04/09/20 15:35 04/15/20 12:30 DC 04/15/20 06:37 Olanzapine (ZyPREXA ZYDIS) 5 mg Q6HP PRN PO ANXIETY/AGITATION 04/15/20 21:00 04/22/20 06:40 DC 04/20/20 06:28 Olanzapine (ZyPREXA) 2.5 mg BID PO 04/12/20 09:00 04/14/20 09:02 DC 04/13/20 20:03 Olanzapine (ZyPREXA) 2.5 mg QHS PO 04/11/20 21:00 04/12/20 12:38 DC 04/11/20 20:13 Olanzapine (ZyPREXA) 5 mg BID PO 04/14/20 09:00 04/15/20 20:50 DC 04/15/20 08:01 Olanzapine (ZyPREXA) 5 mg DAILY PO 04/16/20 09:00 Cancel Olanzapine (ZyPREXA) 10 mg QHS PO 04/15/20 21:00 Cancel Omeprazole (PriLOSEC) 40 mg DAILY PO 04/10/20 09:00 04/29/20 10:04 Paliperidone (Invega) 3 mg BID PO 04/15/20 21:00 04/21/20 11:16 DC 04/20/20 20:25 Propranolol HCl (Inderal) 20 mg TID PO 04/09/20 21:00 04/29/20 10:20 Sucralfate (Carafate) 1 gm AC PO 04/10/20 12:00 04/29/20 07:30 Trazodone HCl (Desyrel) 25 mg QHSP PRN PO INSOMNIA 04/11/20 12:05 04/15/20 12:30 DC 04/14/20 20:27 Trazodone HCl (Desyrel) 50 mg QHSP PRN PO INSOMNIA 04/09/20 15:35 04/11/20 12:07 DC Valsartan (Diovan) 160 mg DAILY PO 04/27/20 16:00 04/29/20 10:05 Venlafaxine HCl (Effexor Xr) 37.5 mg QAM PO 04/26/20 09:00 04/27/20 07:57 DC 04/26/20 09:33 Venlafaxine HCl (Effexor Xr) 75 mg QAM PO 04/25/20 09:00 04/27/20 15:38 DC 04/27/20 08:05 Venlafaxine HCl (Effexor) 75 mg DAILY PO 04/24/20 09:00 04/24/20 15:59 DC Allergies Coded Allergies: Penicillins (Verified Allergy, Intermediate, HIVES, 04/09/20) ANTONY ZALDIVAR NP Apr 29, 2020 12:06
[2020-04-29 16:20] VITALS: BP 105/75
[2020-04-30] MEDS: COMBIVENT RESPIMAT 100-20MCG INHALER 4GM INH SCH ×4 (02:00→20:23)
[2020-04-30 06:23] VITALS: BP 131/88
[2020-04-30] MEDS: SUCRALFATE 1 GM TAB PO SCH ×3 (06:47→17:00)
[2020-04-30] MEDS: PROPRANOLOL 20 MG TAB PO SCH ×3 (08:26→20:22)
[2020-04-30] MEDS: NICOTINE 21MG/24HR 1 EA TRANSDERMAL TD SCH (08:26)
[2020-04-30] MEDS: ASPIRIN 81MG ENTERIC TABLET PO SCH (08:27)
[2020-04-30] MEDS: amLODIPine 5 MG TAB PO SCH (08:27)
[2020-04-30] MEDS: OMEPRAZOLE 20 MG CAP PO SCH (08:27)
[2020-04-30] MEDS: VALSARTAN 80 MG TAB (DIOVAN) PO SCH (08:27)
[2020-04-30] MEDS: FLUoxetine 10 MG CAP PO SCH (09:18)
[2020-04-30 16:11] VITALS: BP 121/89
[2020-05-01] MEDS: COMBIVENT RESPIMAT 100-20MCG INHALER 4GM INH SCH ×4 (02:00→20:18)
[2020-05-01] MEDS: ALBUTEROL 90 MCG/ACT 8GM HFA INHALER INH PRN (05:46)
[2020-05-01 06:25] VITALS: BP 153/88
[2020-05-01] MEDS: SUCRALFATE 1 GM TAB PO SCH ×3 (06:46→17:13)
[2020-05-01] MEDS: OMEPRAZOLE 20 MG CAP PO SCH (08:39)
[2020-05-01] MEDS: FLUoxetine 10 MG CAP PO SCH (08:39)
[2020-05-01] MEDS: ASPIRIN 81MG ENTERIC TABLET PO SCH (08:39)
[2020-05-01] MEDS: amLODIPine 5 MG TAB PO SCH (08:40)
[2020-05-01] MEDS: VALSARTAN 80 MG TAB (DIOVAN) PO SCH (08:40)
[2020-05-01] MEDS: PROPRANOLOL 20 MG TAB PO SCH ×3 (08:40→20:19)
[2020-05-01] MEDS: NICOTINE 21MG/24HR 1 EA TRANSDERMAL TD SCH (08:41)
[2020-05-01 16:19] VITALS: BP 131/85
[2020-05-02] MEDS: COMBIVENT RESPIMAT 100-20MCG INHALER 4GM INH SCH ×3 (02:00→13:02)
[2020-05-02 06:33] VITALS: BP 117/68
[2020-05-02] MEDS: SUCRALFATE 1 GM TAB PO SCH ×2 (06:44→12:00)
[2020-05-02] MEDS: PROPRANOLOL 20 MG TAB PO SCH (08:32)
[2020-05-02] MEDS: VALSARTAN 80 MG TAB (DIOVAN) PO SCH (08:33)
[2020-05-02 08:36] VITALS: BP 117/68
[2020-05-02] MEDS: ASPIRIN 81MG ENTERIC TABLET PO SCH (08:36)
[2020-05-02] MEDS: FLUoxetine 10 MG CAP PO SCH (08:36)
[2020-05-02] MEDS: amLODIPine 5 MG TAB PO SCH (08:36)
[2020-05-02] MEDS: OMEPRAZOLE 20 MG CAP PO SCH (08:36)
[2020-05-02] MEDS: NICOTINE 21MG/24HR 1 EA TRANSDERMAL TD SCH (08:37)
[2020-05-02] MEDS ORDERED: PROAAER10 INH (09:21)
[2020-05-02] MEDS ORDERED: SUCR1TAB56 PO (09:21)
[2020-05-02] MEDS ORDERED: PROP20TA72 PO (09:21)
[2020-05-02] MEDS ORDERED: OMEP-221 PO (09:21)
[2020-05-02] MEDS ORDERED: AMLO-179 PO (09:21)
[2020-05-02] MEDS ORDERED: FLUO10CA16 PO (09:21)
[2020-05-02] MEDS ORDERED: COMBAER6 INH (09:21)
--- NOTE | 2020-05-02 17:02 | MHDSPDOC ---
[facility] Discharge Summary Discharge Summary DATE OF ADMISSION: Apr 09, 2020 at 14:57 DATE OF DISCHARGE: May 02, 2020 at 1628 DISCHARGE DIAGNOSES: Delirium secondary to acute encephalopathy (Unspecified Delirium) Generalized Anxiety Disorder Nicotine Use Disorder REASON FOR ADMISSION: Today is Day 23 for this patient's admission and he is being discharged today. He is a 55-year-old , Unemployed, Domiciled, admitted to inpatient mental health unit for unspecified psychotic disorder. He was brought to ED for making SI and bizarre statements to his . Pt stated he was looking for Drain-O to drink. He remains delusional and bizarre in his statements. Patient had many days of alternating lucidity and delusional and bizarre thinking. We had made a decision to discontinue all of his medications as his main symptom after being admitted was changing consciousness. We made the assumptive diagnosis of delirium based not only on his condition, but also a recognition that he had a past history of admissions with encephalopathy CONSULTANTS INVOLVED: See notes by Dr. Rubio, Veronica Chapa, Dr. Clemons, Dr. Ogden, Justus Chapa, Dr. Chiang and Dr. Delong TREATMENT AND PROGRESS ON THE UNIT: Patient was admitted to the [facility] on a 9.39 legal status he was afforded the following treatment modalities: 1) Individual Therapy 2) Group Therapy 3) Medication Management 4) Milieu Therapy 5) Safe Environment HOSPITAL COURSE: Patient was admitted to [facility] on a 9.39 legal status. Throughout his hospitalization he had alternating mental status. Initially he was delusional and bizarre - stated "I screwed up, I am breathing and it's too heavy. The intern is coming to get me. I am running out of air. I killed myself." Patient then picks up the phone and asks to call his . He asks her, "Do you want me to stop calling you? I killed myself, I am stopping at the house. I am still breathing." His asked if staff could limit his calls to her, she states he called her numerous times yesterday and numerous times today. He states in the interview. "I am not depressed now I am depressed but I will quit breathing because I am ." At times during the day, he was adherent with treatment and was able to be redirected and some days he remained bizarre and what appears to be more like delirium. Patient was found in his room on one day earlier in this admission and he stated to this provider "I am suppose to go out and stand outside naked. My family was killed, everyone of them." Patient then stands up, takes off his pants and looks at the ceiling. When asked why he took his pants off he looks at the ceiling and said, "The speaker phone told me to do it. I am being terminated" He was able to answer many questions appropriately. He was often alert and oriented to person, place, time, city, and zip code. Patient would then be observed talking to himself, he stated that all the people in his family that were killed. "I ordered a hit on them, supposedly. They are all killed last night." He had poor insight. Patient was observed to be running down the h allway one day. His attention was impaired and but his short-term memory is mildly impaired but not absent. He was observed to be fluctuating in delirium and his delusions are transient. It was strongly felt that due to his transient delusions, cognitive functioning being both fleeting and fluctuating that this is delirium which may probably be exacerbated by his medications, many of which were anticholinergic. Patient was on several medications that cause/worsen ICE SELLER depression or delirium; Morphine, Beta Yobany, Amitriptyline, Olanzapine, Gabapentin with the Trazodone, Milk of Magnesia with the combination of other medications. All of the medications were discontinued. On one particular day his cognition had improved and he reported to me today that he had been taking extra Morphine at home. On Day 14 patient was alert and oriented and was not exhibiting altered mental status and was agreeable to a voluntary admission to the hospital. This was also explained to his , Chichi. Patient was seen multiple times during this hospitalization by the medical team, please see their consultation notes. He scored high on the mini mental status exam and scored high on the MOCA, of course, these were done in the plastic outfitter. Reports were that patient had a decline in cognition in the afternoon. Once the above medications were discontinued, patient improved significantly. He did not appear to have withdrawal symptoms although, the treatment team had prepared for this. Patient improved but was requesting to be discharged last Saturday, spoke to the who felt that patient continued to have cognitive delays and that she would have ample time to remove any medications out of the home. This was reinforced with her that this was paramount in his aftercare t reatment. Patient is requesting today, according to the treatment team he met criteria for discharge today. DISCHARGE ASSESSMENT: In today's interview, patient is alert and oriented, pts dress is appropriate. Hygiene and grooming is well-kempt. Smiles on approach and is pleasant and engaged in the interview. Denies depression and anxiety. Denies suicidal and homicidal ideation, planning or intent. Denies and is not observed with milvia, psychotic symptoms of delusions, bizarre thinking, obsessions, paranoia, ruminations illogical thoughts, flight of ideas or having poor insight and judgement. Patient has normal mentation, declines further hospitalization on a voluntary status and meets criteria for discharge today. Patient encouraged to return to hospital if his symptoms worsen or change and encouraged to call unit if he/she/they needs to speak to provider for questions regarding medications or care. MENTAL STATUS EXAMINATION ON DISCHARGE: is a 55-year-old , Unemployed, Domiciled, admitted to inpatient mental health unit for unspecified psychotic disorder Speech: Is fluid, normal rate, tone and volume Language skills are intact Thought processes including: linear and goal oriented Thought content: denies depression and anxiety. Denies suicidal/homicidal ideation, planning or intent. Abstract reasoning, and computation: fair Description of associations: denies, none observed Description of abnormal or psychotic thoughts: denies, none observed. Judgment: fair Insight: fair Orientation: alert and oriented to person, place, time and situation Recent and remote memory: intact Attention span and concentration: good Language: expansive Fund of knowledge: average Mood: Euthymic Mood Affect: reactive MEDICATIONS ON DISCHARGE: see Medication Reconciliation PLAN/FOLLOWUP ARRANGEMENTS: Patient is discharged to home and follow up with [facility] The amount of time spent in the coordination of care for this patient was approximately 30 minutes. ETOH/Disorder Med Rx ETOH/DRUG DISORDER RX: N/A Vital Signs/I&Os Vital Signs Date Time Temp Pulse Resp B/P (MAP) Pulse Ox O2 Delivery O2 Flow Rate FiO2 05/02/20 08:36 64 117/68 05/02/20 06:33 98.0 16 99 Room Air Medications Scheduled Amlodipine Besylate/Valsartan (Amlodipine-Valsartan 5-160 mg) 1 Each Tablet, 1 TAB PO DAILY for Bloodn Pressure, #7 Aspirin (Aspirin EC) 81 Mg Tablet.dr, 81 MG PO DAILY, (Reported) Fluoxetine Hcl (Fluoxetine HCl) 10 Mg Capsule, 10 MG PO DAILY for Depression, #7 Ipratropium/Albuterol Sulfate (Combivent Respimat 20-100 Mcg) 4 Gm Mist.inhal, 1 PUFF INH DAILY for Wheezing, #1 Omeprazole (Omeprazole) 40 Mg Capsule.dr, 40 MG PO DAILY for Acid Reflux, #7 Propranolol HCl (Propranolol HCl) 20 Mg Tablet, 20 MG PO TID for Blood Pressure, #21 Sucralfate (Sucralfate) 1 Gm Tablet, 1 GM PO AC for Ulcers, #21 Scheduled PRN Albuterol Sulfate (Proair Hfa) 8.5 Gm Hfa.aer.ad, 2 PUFF INH Q4H PRN for wheezing, #1 Allergies Coded Allergies: Penicillins (Verified Allergy, Intermediate, HIVES, 04/09/20) ANTONY ZALDIVAR NP May 02, 2020 16:29
--- NOTE | 2020-05-04 18:22 | EEG ---
ELECTROENCEPHALOGRAM DATE: 04/29/2020 DIAGNOSIS: Unspecified psychotic disorder, rule out temporal lobe seizures. EEG# REFERRING PHYSICIAN: HARRY LUNDBERG MD HISTORY: Patient is a 55-year-old man who was admitted at [facility] thinking his organs were being rearranged due to poor breathing. The patient became unresponsive at night and had difficulty waking up with slow cognition and responses. This EEG was done to rule out epileptic potential. A list of his current medications was not provided. TECHNICAL DESCRIPTION: This digital EEG was recorded by 21-scalp, ear, and two EKG electrodes and was reviewed in bipolar and referential montages following reformatting in 10-20 international electrode placement system. INTERPRETATION: Patient was noted to be in awake and drowsy states during this EEG. Resting and awake background rhythm consisted of 9 Hz alpha activity measuring 15-40 microvolts in amplitude, which was symmetric and reactive to eye opening. Attenuation of posterior dominant rhythm was seen during transition into drowsiness. No sleep was achieved. Hyperventilation could not be performed. Photic stimulation remained unremarkable. EKG revealed normal sinus rhythm. No focal, lateralizing, or epileptiform abnormalities were seen. No relevant clinical activity was noted. CONCLUSION: This EEG in awake and drowsy states is within normal limits.
== END 2020-05-02 14:08 | disposition home or self-care (01) | DRG 880 ==
LOC: M ED 05:25 → M ED INP 14:57 → M PSY 16:40
PROVIDERS: ADMIT Psychiatry & Neurology Child & Adolescent Psychiatry; ATTEND Psychiatry & Neurology Psychiatry
DX: F41.1 Generalized anxiety disorder (principal); G93.40 Encephalopathy, unspecified; F17.200 Nicotine dependence, unspecified, uncomplicated; Z79.899 Other long term (current) drug therapy; Z79.82 Long term (current) use of aspirin; Z88.0 Allergy status to penicillin; R07.89 Other chest pain; I10 Essential (primary) hypertension; E55.9 Vitamin D deficiency, unspecified; F32.9 Major depressive disorder, single episode, unspecified; D53.9 Nutritional anemia, unspecified; E78.5 Hyperlipidemia, unspecified; K21.9 Gastro-esophageal reflux disease without esophagitis; J44.9 Chronic obstructive pulmonary disease, unspecified

== ENCOUNTER 2020-05-14 13:08 | Emergency (ER) | payer BC, MEDICARE ==
[~2020-05-14] VITALS: Ht 175.3 cm; Wt 72.3 kg
[~2020-05-14 13:08] MED LIST changes: +BUSP10TA PO; +FLUO10CA16 PO; +PROAAER10 INH
[2020-05-14] MEDS ORDERED: NS 1,000 ML IV ONE (13:20)
[2020-05-14 13:42] LABS: HEMATOCRIT 40.6 % (42.0-52.0); HEMOGLOBIN 13.9 g/dl (13.5-17.5); MEAN CORPUSCULAR HEMOGLOBIN 32.6 pg (27.0-33.0); MEAN CORPUSCULAR HGB CONC 34.2 g/dl (32.0-36.5); MEAN CORPUSCULAR VOLUME 95.1 fl (80.0-96.0); PLATELET COUNT, AUTOMATED 216 10^3/uL (150-450); RED BLOOD COUNT 4.27 10^6/uL (4.30-6.10); WHITE BLOOD COUNT 4.4 10^3/uL (4.0-10.0)
[2020-05-14 14:18] LABS: ACETAMINOPHEN LEVEL < 2.0 UG/ML (10.0-30.0); ALBUMIN 3.7 GM/DL (3.2-5.2); ALT/SGPT 15 U/L (12-78); BILIRUBIN,DIRECT 0.1 MG/DL (0.0-0.2); BILIRUBIN,TOTAL 0.3 MG/DL (0.2-1.0); BLOOD UREA NITROGEN 24 MG/DL (7-18); CALCIUM LEVEL 8.7 MG/DL (8.5-10.1); CARBON DIOXIDE LEVEL 27 MEQ/L (21-32); CHLORIDE LEVEL 107 MEQ/L (98-107); CK-MB VALUE MASS 1.1 NG/ML (<3.6); CPK CREATINE PHOSPHOKINASE 37 U/L (39-308); CREATININE FOR GFR 0.84 MG/DL (0.70-1.30); ETHYL ALCOHOL (ETHANOL) < 0.003 % (0.000-0.010); GLOMERULAR FILTRATION RATE > 60.0 (>56); GLUCOSE, FASTING 96 MG/DL (70-100); MB/CK RELATIVE INDEX 2.97 (< OR =4); POTASSIUM SERUM 3.7 MEQ/L (3.5-5.1); SALICYLATE LEVEL < 1.7 MG/DL (5.0-30.0); SODIUM LEVEL 141 MEQ/L (136-145); THYROID STIMULATING HORMONE 0.795 uIU/ML (0.358-3.740); TOTAL PROTEIN 6.8 GM/DL (6.4-8.2); TROPONIN I < 0.02 NG/ML (< 0.10)
[2020-05-14 14:22] LABS: ATYPICAL LYMPH 7 % (0-5); EOSINOPHILS 1 % (0-3); LYMPHOCYTES 37 % (16-44); MONOCYTES 7 % (0-5); NEUTROPHILS 48 % (28-66)
[2020-05-14 14:23] LABS: ANISOCYTOSIS 1+; PLATELET ESTIMATE NORMAL (NORMAL); POIKILOCYTOSIS 1+
--- NOTE | 2020-05-14 15:18 | REPVR ---
PROCEDURE INFORMATION: Exam: CT Head Without Contrast Exam date and time: 05/14/2020 2:41 PM Age: 55 years old Clinical indication: Altered mental status/memory loss TECHNIQUE: Imaging protocol: Computed tomography of the head without contrast. Radiation optimization: All CT scans at this facility use at least one of these dose optimization techniques: automated exposure control; mA and/or kV adjustment per patient size (includes targeted exams where dose is matched to clinical indication); or iterative reconstruction. COMPARISON: CT Head without contrast 04/20/2020 5:02 PM FINDINGS: Brain: Symmetric prominence of the cortical and cerebellar sulci. No acute cortical infarct, mass effect, or intracranial hemorrhage. Dural calcification. Cerebral ventricles: Normal configuration of the ventricles. Bones/joints: No acute calvarial pathology. Paranasal sinuses: No sinus fluid. Mastoid air cells: No mastoid effusion. Soft tissues: Unremarkable soft tissues. IMPRESSION: Atrophy, without acute intracranial pathology. Electronically signed by: Andrew Abad On 05/14/2020 15:18:54 PM
[2020-05-14 15:31] VITALS: BP 125/85
--- NOTE | 2020-05-14 19:12 | ECGEPIP ---
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
== END 2020-05-14 16:14 | disposition home or self-care (01) ==
LOC: M ED 13:08 → EDBD 13:08 → M ED 16:14
DX: F25.9 Schizoaffective disorder, unspecified (principal); F43.0 Acute stress reaction; G31.9 Degenerative disease of nervous system, unspecified; I10 Essential (primary) hypertension; K21.9 Gastro-esophageal reflux disease without esophagitis; Z88.0 Allergy status to penicillin; F17.200 Nicotine dependence, unspecified, uncomplicated; Z79.899 Other long term (current) drug therapy

== ENCOUNTER 2020-05-23 11:13 | Inpatient (IN) | payer MEDICARE ==
[~2020-05-23] VITALS: Ht 175.3 cm; Wt 61.2 kg
[~2020-05-23 11:13] MED LIST changes: -ACET-908 PO; +ACET-910 PO
[2020-05-23 12:13] LABS: HEMATOCRIT 36.7 % (42.0-52.0); HEMOGLOBIN 12.5 g/dl (13.5-17.5); MEAN CORPUSCULAR HEMOGLOBIN 32.3 pg (27.0-33.0); MEAN CORPUSCULAR HGB CONC 34.1 g/dl (32.0-36.5); MEAN CORPUSCULAR VOLUME 94.8 fl (80.0-96.0); PLATELET COUNT, AUTOMATED 192 10^3/uL (150-450); RED BLOOD COUNT 3.87 10^6/uL (4.30-6.10); WHITE BLOOD COUNT 3.7 10^3/uL (4.0-10.0)
[2020-05-23 12:50] LABS: ACETAMINOPHEN LEVEL < 2.0 UG/ML (10.0-30.0); ALBUMIN 3.5 GM/DL (3.2-5.2); ALT/SGPT 14 U/L (12-78); BILIRUBIN,DIRECT < 0.1 MG/DL (0.0-0.2); BILIRUBIN,TOTAL 0.3 MG/DL (0.2-1.0); BLOOD UREA NITROGEN 17 MG/DL (7-18); CALCIUM LEVEL 8.7 MG/DL (8.5-10.1); CARBON DIOXIDE LEVEL 29 MEQ/L (21-32); CHLORIDE LEVEL 111 MEQ/L (98-107); CREATININE FOR GFR 0.86 MG/DL (0.70-1.30); ETHYL ALCOHOL (ETHANOL) < 0.003 % (0.000-0.010); GLOMERULAR FILTRATION RATE > 60.0 (>56); GLUCOSE, FASTING 98 MG/DL (70-100); POTASSIUM SERUM 3.4 MEQ/L (3.5-5.1); SALICYLATE LEVEL < 1.7 MG/DL (5.0-30.0); SODIUM LEVEL 145 MEQ/L (136-145); THYROID STIMULATING HORMONE 0.422 uIU/ML (0.358-3.740); TOTAL PROTEIN 6.1 GM/DL (6.4-8.2)
[2020-05-23] MEDS ORDERED: SUCR1TAB56 PO (16:27)
[2020-05-23] MEDS ORDERED: OMEP-221 PO (16:27)
[2020-05-23] MEDS ORDERED: AMLO-179 PO (16:27)
[2020-05-23] MEDS ORDERED: PROP20TA PO (16:27)
[2020-05-23] MEDS ORDERED: FLUO10CA16 PO (16:27)
[2020-05-23] MEDS ORDERED: VENTAER INH (16:27)
[2020-05-23 16:33] LABS: RSV AMPLIFICATION NEGATIVE (NEGATIVE)
[2020-05-23] MEDS ORDERED: LIDOCAINE 2% 5ML JELLY UROJET TOP ONE (17:20)
[2020-05-23 18:32] LABS: AMPHETAMINES LEVEL URINE NEGATIVE (NEGATIVE); BARBITURATES URINE NEGATIVE (NEGATIVE); BENZODIAZEPINES URINE NEGATIVE (NEGATIVE); CANNABINOIDS URINE NEGATIVE (NEGATIVE); COCAINE METABOLITE URINE NEGATIVE (NEGATIVE); METHADONE URINE NEGATIVE (NEGATIVE); OPIATES URINE NEGATIVE (NEGATIVE); PHENCYCLIDINE URINE NEGATIVE (NEGATIVE)
[2020-05-23] MEDS ORDERED: MOM 30ML SUSPENSION UDC PO PRN (19:15)
[2020-05-23] MEDS ORDERED: MAALOX 30 ML SUSP *UDC PO PRN (19:15)
[2020-05-23] MEDS: SUCRALFATE 1 GM TAB PO SCH (19:15)
[2020-05-23] MEDS: PROPRANOLOL 20 MG TAB PO SCH (21:18)
[2020-05-24 00:12] VITALS: BP 131/72
[2020-05-24] MEDS ORDERED: OLANZapine ORAL DISINTEGRATING TAB 5MG PO STA (00:37)
[2020-05-24] MEDS ORDERED: OLANZapine ORAL DISINTEGRATING TAB 5MG PO PRN (00:40)
[2020-05-24 06:54] VITALS: BP 139/88
[2020-05-24] MEDS: SUCRALFATE 1 GM TAB PO SCH (07:30)
[2020-05-24] MEDS: SUCRALFATE SUSP 1GM/10ML UD PO SCH ×3 (07:45→16:53)
[2020-05-24 08:52] VITALS: BP 134/96
[2020-05-24] MEDS: PROPRANOLOL 20 MG TAB PO SCH ×4 (08:54→21:42)
[2020-05-24] MEDS: ASPIRIN 81MG ENTERIC TABLET PO SCH (08:54)
[2020-05-24] MEDS: FLUoxetine 10 MG CAP PO SCH (08:54)
[2020-05-24] MEDS: NICOTINE 14 MG/24 HR TRANSDERMAL TD SCH (08:55)
[2020-05-24 16:25] VITALS: BP 142/94
--- NOTE | 2020-05-24 17:52 | HPEPDOC ---
[facility] Medical History & Physical Date of Admission May 24, 2020 Date of Service: May 24, 2020 History and Physical CHIEF COMPLAINT: suicidal ideation HISTORY OF PRESENT ILLNESS: 55 yo M with a hx of chronic low back pain, HTN, depression, anxiety disorder, was brought to [facility] ER by police, after his f ound him lying in bed, holding scissors to his neck saying he will stab and kill himself. At the time of my examination, patient told me that he is at the hospital for difficulty breathing, although he denies any respiratory difficulties, aas well as chest pain, palpitations, headache, fevers, or n/v/d. Hospitalist was consulted for medical intake. At the time of exam, patient was saturating at 100% on RA. T 98.1. HR 60. RR 18. BP 142/94. PAST MEDICAL HISTORY: 1. Chronic low back pain 2. Right arm pain secondary to biceps tendon rupture status post repair at [facility] 3. Macrocytic anemia 4. Pulmonary nodules 5. Vitamin D deficiency 6. Right and left torn rotator cuff 7. Depression 8. Hypertension 9. Generalized anxiety PAST SURGICAL HISTORY: 1. Bicep repair on the right side. 2. Rotator cuff tear repair on left and right 3. Colonoscopy SOCIAL HISTORY: Tobacco use: Current smoker ETOH: Denies Illicit drug use: Denies FAMILY HISTORY: Father: at 55 years old, history of liver cancer Mother: Ceased at 72 years old history of breast cance ALLERGIES: Please see below. REVIEW OF SYSTEMS: 10 point ROS was completed, relevant findings are noted in the HPI HOME MEDICATIONS: Please see below. PHYSICAL EXAMINATION: VITAL SIGNS: please see below General: NAD, comfortable HEENT: PERRLA, EOMI, sclerae clear Neck: supple, normal ROM, no JVD Respiratory: lungs CTAB, no wheeze, no rales, no crackles CVS: RRR, normal S1, S2, no murmurs Abdo: soft, no masses, no hepatosplenomegaly, BS+, no rebound tenderness Extremities: no edema, pulses 2+ MSK: no joint deformities, normal ROM Neuro: no focal neuro deficits, moving all 4 extremities, CN2-12 intact. Strength 5/5 in all 4 extremities. No nystagmus. Psych: calm, cooperative, AAO x 3 LABORATORY DATA: See below. MICROBIOLOGY: Please see below. ASSESSMENT: 55 yo M with a hx of chronic low back pain, HTN, depression, anxiety disorder, was brought to [facility] ER by police, after his found him lying in bed, holding scissors to his neck saying he will stab and kill himself. Hospitalist consulted for medical intake. PLAN: suicidal ideation: per psychiatry GERD: c/w PPI Hypokalemia: K 3.4. Replace. HTN: resume home meds. HLD: continue with atorvastatin Vital Signs Vital Signs Date Time Temp Pulse Resp B/P (MAP) Pulse Ox O2 Delivery O2 Flow Rate FiO2 05/24/20 16:25 98.1 60 18 142/94 (110) 100 Room Air Laboratory Data Labs 24H Laboratory Tests 2 05/23/20 17:44: Urine Opiates Screen NEGATIVE, Urine Methadone Screen NEGATIVE, Urine Barbiturates Screen NEGATIVE, Urine Phencyclidine Screen NEGATIVE, Urine Amphetamines Screen NEGATIVE, Urine Benzodiazepines Screen NEGATIVE, Urine Cocaine Metabolite Screen NEGATIVE, Urine Cannabinoids Screen NEGATIVE Home Medications Scheduled Amlodipine Besylate/Valsartan (Amlodipine-Valsartan 5-160 mg) 1 Each Tablet, 1 TAB PO DAILY Aspirin (Aspirin EC) 81 Mg Tablet.dr, 81 MG PO DAILY Fluoxetine Hcl (Fluoxetine HCl) 10 Mg Capsule, 10 MG PO DAILY Omeprazole (Omeprazole) 40 Mg Capsule.dr, 40 MG PO DAILY Propranolol HCl (Propranolol HCl) 20 Mg Tablet, 20 MG PO TID Sucralfate (Sucralfate) 1 Gm Tablet, 1 GM PO AC Scheduled PRN Albuterol Sulfate (Ventolin Hfa) 18 Gm Hfa.aer.ad, 2 PUFFS INH QID PRN for SOB/WHEEZING Allergies Coded Allergies: Penicillins (Verified Allergy, Intermediate, HIVES, 04/09/20) A-FIB/CHADSVASC A-FIB History Current/History of A-Fib/PAF?: No Current PO Anticoag Therapy: No KENNETH KING MD May 24, 2020 17:52
[2020-05-24] MEDS ORDERED: POTASSIUM CHLORIDE 10% LIQ 20 MEQ/15 ML UDC PO ONE (17:55)
[2020-05-24] MEDS: amLODIPine 5 MG TAB PO SCH (18:13)
--- NOTE | 2020-05-24 19:24 | MHHPEPDOC ---
General Date Of Admission: May 23, 2020 Legal Status: 9.39 Chief Complaint "I was depressed and put a knife to my throat." History of Present Illness HISTORY OF THE PRESENT ILLNESS: Patient is a 55 -year-old , Retired/Disabled, Domiciled, , male, who was brought to reports that he was depressed and had poor sleep and was suicidal. "I took a knife to my throat because I was not getting enough sleep." When asked again why he was brought to the hospital patient states "I had difficulty breathing" This is patient's 3rd hospitalization in psychiatry, and he has had over 20+ ED visits since July 2019. Patient had a hospitalization in February 2020 (02/29/20- 03/02/20) for Acute Encephalopathy with an admission to psychiatry 03/02/20- 03/07/20. He was recently admitted and discharged from this facility from 04/09/20-05/02/20. Patient appears to have poor recall of the events leading up to this hospitalization, he does report depression with suicidal ideation but cannot clarify his stressors. According to his , he had only one solid day of good cognitive functioning and has declined since his discharge. PER ED REPORT: Pt was brought in via ambulance on a 9.41 after pt's called the police due to pt holding scissors to his throat, and threatening to stab and kill himself. Reported pt was c/o being "filled with air" and stated he was going to use the scissors to "deflate himself." Pt states he doesn't know why he is here. Reports police came into his house while he was sleeping in bed and brought him to the ED. States he told his he was thinking about stabbing himself while he was holding scissors, so she called 911 stating pt was going to kill himself. "I didn't really want to do it, so I didn't do it." Pt is a poor historian and reports conflicting information throughout MHE. Pt would state he wants to go home and repeated several times "I'm fine", "I'm okay", and "I'm doing good", and used those three phrases to answer a majority of t/w's questions during MHE. Pt would deny being suicidal, then when asked how long he'd had thoughts of suicide, pt would state hes had them for 1 week. Pt reports having a "terrible" appetite and sleep. C/o GARCIA keeping him awake at night. States he keeps hearing that he should . Describes the voice as "weird" and states he cannot recognize who it is or if it's male or female, but states the voice tells pt. to kill himself. Pt states he has been depressed and struggling with these auditory hallucinations and si for about 1 week. Pt was hospitalized on [facility] for approximately 1 month and was just released home 1 week ago. Pt stated at one point he thought he should be admitted, and then would state he could CFS and would like to go home to rest. Spoke w/ pt.s Loretta via telephone whom pt. resides with. Reports pt. had a "good day" the day he was released from [facility] last week, but that every day after that has been bad. States pt. stopped taking his medication when he returned home and has rapidly decompensated since. States pt. is having ah/vh, and several hallucinations regarding his body. Reports pt thinks he is shrinking, his nose is where his mouth should be, and that he is full of air and needs to be stabbed to deflate. Reports pt. has been incontinent, urinating and defecating diarrhea on their bed, and is spitting all over the house and pt.s . reports last night, pt. woke up at 2 am, and put scissors to his aorta, stating he was going slit his throat. reports she had to physically remove scissors from pt. reports concern for her and pt.s safety, and states she is not comfortable with him being discharged home, as he has been decompensating steadily since returning home, and is becoming "too much" for her to try to take care of and increasingly difficult to keep safe. Psychiatric Review of Systems Depression (2 or more weeks): depressed mood, anhedonia, insomnia/hypersomnia, difficulty concentrating, suicidal thoughts Jerilyn (4 or more days of): denies Psychosis: auditory hallucination, denies PTSD: denies Anxiety: denies Past Psychiatric History Previous Psychiatric Diagnosis: Has been treated for depression, pain and psychosis in the past. Previous Psychiatric Admissions: 2 other psychiatric hospitalizations to this facility. This is his third admission. Suicide Attempts: On this occasion, he attempted to put a knife to his throat. Psychiatric Follow-up:. Dr. Devine and a therapist in [facility]. At one point, patient was following up at [facility] Psychiatric medications:, Olanzapine, BuSpar, Valium, amitriptyline, gabapentin, currently only taking olanzapine and Prozac. Past Medical History Medical Problems Chronic low back pain, bilateral arm pain, right arm pain secondary to biceps tendon rupture status post repair at [facility], right and left torn rotator cuff hypertension, GERD, COPD Macrocytic anemia Pulmonary nodules Vitamin D deficiency Depression Generalized anxiety Past surgical history bicep prepare on right side Rotator cuff tear repair on the left and right Colonoscopy Patient was a client at the pain clinic at one time was taking Soma 350 mg 3 times a day. OxyContin 10 mg twice daily. Morphine 15 mg twice daily. These are no longer on his medication regimen Head Injury: No Seizures: No Hospitalizations: Yes Surgeries: Yes Family Medical/Psychiatric HX Medical Problems Father . History of liver cancer Mother . History of breast cancer Addiction History nicotine Social History Childhood: . Abuse/Trauma:. Current Living Situation: . Education: . Employment: . Social Support: . Legal: . Marital: . Mental Status Examination General Appearance: disheveled, ds/not appear stated age, hospital scubs/clothing Build: thin Demeanor: withdrawn Eye Contact: avoidant Activity: average Behavior: cooperative, withdrawn Speech: low in volume Mood: depressed, anxious Affect: flat Thought Process: loose Thought Content (Delusions): none reported, denies SI, HI, AVH (reported to the ED that he has auditory hallucinations. Denies that he has any current hallucinations at this time) Thought Content (Other): guarded Thought Content (Aggressive): none reported Perception (Hallucinations): auditory (reported to the ED, he has auditory hallucinations but denies at this time) Perception (Other): none reported Cognition (Impairment of): none reported Cognition(Intelligence Est.): average Oriented: Awake, Alert, Oriented times three Insight: fair Judgment: Fair Psychosis: Denies Diagnoses Unspecified psychotic disorder Generalized anxiety disorder Rule out Delirium secondary to acute encephalopathy (Unspecified Delirium) Nicotine Use Disorder A-FIB/CHADSVASC A-FIB History Current/History of A-Fib/PAF?: No Current PO Anticoag Therapy: No Age/Risk Factor Scoring CHADSVASC: CHADSVASC Response (Comments) Value Age Risk Factor Age < 65 years old 0 Gender Risk Factor Male 0 Hx of CHF No 0 Hx of HTN Yes 1 Hx of Stroke/TIA/or VTE No 0 Hx of Diabetes No 0 Hx of Vascular Disease No 0 Total 1 Assessment Patient is a 55 year old , Retired, Domiciled, Male who returns to this facility after having been discharged on 05/02/20. Patient at that time had been diagnosed with Delirium secondary to Metabolic Encephalopathy. On this occasion patient had taken a knife to his throat and had been having alternating cognitive functioning. His reports that he had one good day since his discharge and has been delirious since then. She reports repetitive statements, suicidal ideations and threats, auditory hallucinations and reports that he has been incontinent, urinating and defecating diarrhea on their bed, and is spitting all over the house and pt.s . Patient admitted to psychiatry on a 9.39 legal service. We will start his home medications and titrate to therapeutic levels. Patient is dressed appropriately, appears older than his stated age , is quite thin, frail with best pallor. He is observed to be alert and oriented, reporting depression and suicidal ideation. He is having mild cognitive dysfunction, and having poor short term memory, poor recall at times. Thought Process is disorganized at times. Thought content - depressed and suicidal ideations. Denies that he will self-harm in the hospital. He has average fund of knowledge, abstract reasoning is fair. Insight and judgment is impaired. Will restart home medications that patient had not been taking at home and titrate to therapeutic levels. Discharge when stable. At this time, reports concern for her and pt.s safety, and states she is not comfortable with him being discharged home, as he has been decompensating steadily since returning home, and is becoming "too much" for her to try to take care of and increasingly difficult to keep safe. Patient's abnormal lab results = WBC 3.7 RBC 3.87 Hematocrit 12.5 Hemoglobin 36.7 Potassium 3.4 Chloride 111 Anion Gap 5 AST 6 Total Protein 6.1 Initial Treatment Plan 1. Patient was admitted on a [9.39] status. 2. Complete history was obtained. 3. With patients permission, family will be contacted and database will be expanded. 4. Patients medication regimen will be reviewed and changed accordingly. 5. Patient will be provided with protected environment. 6. Patient will be treated with individual, group, and milieu therapies. 7. Patient will receive supportive psych-education. 8. Discharge planning will commence immediately. 9. Outpatient follow-up treatment will be strongly recommended. 10. The initial treatment plan will focus initially on: * Depression. * Risk for suicide. ESTIMATED LENGTH OF STAY: 7-10 DAYS. TIME SPENT COUNSELING AND COORDINATING INITIAL CARE: 60 minutes. Tobacco Cessation Screen Tobacco Cessation Tx Ordered?: Yes Pt Refused Vital Signs Vital Signs Date Time Temp Pulse Resp B/P (MAP) Pulse Ox O2 Delivery O2 Flow Rate FiO2 05/24/20 18:13 60 142/94 05/24/20 16:25 98.1 18 100 Room Air Medications Scheduled Amlodipine Besylate/Valsartan (Amlodipine-Valsartan 5-160 mg) 1 Each Tablet, 1 TAB PO DAILY, (Reported) Aspirin (Aspirin EC) 81 Mg Tablet.dr, 81 MG PO DAILY, (Reported) Fluoxetine Hcl (Fluoxetine HCl) 10 Mg Capsule, 10 MG PO DAILY, (Reported) Omeprazole (Omeprazole) 40 Mg Capsule.dr, 40 MG PO DAILY, (Reported) Propranolol HCl (Propranolol HCl) 20 Mg Tablet, 20 MG PO TID, (Reported) Sucralfate (Sucralfate) 1 Gm Tablet, 1 GM PO AC, (Reported) Scheduled PRN Albuterol Sulfate (Ventolin Hfa) 18 Gm Hfa.aer.ad, 2 PUFFS INH QID PRN for SOB/WHEEZING, (Reported) Allergies Coded Allergies: Penicillins (Verified Allergy, Intermediate, HIVES, 04/09/20) ANTONY ZALDIVAR MODELING ANALYST May 24, 2020 19:14
[2020-05-24] MEDS: ALBUTEROL 90 MCG/ACT 8GM HFA INHALER INH PRN (22:24)
[2020-05-25 06:09] VITALS: BP 128/70
[2020-05-25] MEDS: ALBUTEROL 90 MCG/ACT 8GM HFA INHALER INH PRN (06:28)
[2020-05-25] MEDS: SUCRALFATE SUSP 1GM/10ML UD PO SCH ×3 (06:39→17:16)
[2020-05-25] MEDS: VALSARTAN 80 MG TAB (DIOVAN) PO SCH (09:38)
[2020-05-25] MEDS: FLUoxetine 10 MG CAP PO SCH (09:39)
[2020-05-25] MEDS: ASPIRIN 81MG ENTERIC TABLET PO SCH (09:39)
[2020-05-25] MEDS: OMEPRAZOLE 20 MG CAP PO SCH (09:39)
[2020-05-25] MEDS: amLODIPine 5 MG TAB PO SCH (09:39)
[2020-05-25] MEDS: NICOTINE 14 MG/24 HR TRANSDERMAL TD SCH (09:39)
[2020-05-25] MEDS: PROPRANOLOL 20 MG TAB PO SCH ×3 (09:39→21:46)
--- NOTE | 2020-05-25 14:49 | MHIPNPDOC ---
[facility] Progress Note Progress Note DATE OF SERVICE: 05/25/20 HISTORY: Patient is a 55 -year-old , Retired/Disabled, Domiciled, , male, who was brought to reports that he was depressed and had poor sleep and was suicidal. "I took a knife to my throat because I was not getting enough sleep." When asked again why he was brought to the hospital patient states "I had difficulty breathing." This is patient's 3rd hospitalization in psychiatry, and he has had over 20+ ED visits since July 2019. Patient had a hospitalization in February 2020 (02/29/20-03/02/20) for Acute Encephalopathy with an admission to psychiatry 03/02/20-03/07/20. He was recently admitted and discharged from this facility from 04/09/20-05/02/20. Patient appears to have poor recall of the events leading up to this hospitalization, he does report depression with suicidal ideation but cannot clarify his stressors. According to his , he had only one solid day of good cognitive functioning and has declined since his discharge. PER ED REPORT: Pt was brought in via ambulance on a 9.41 after pt's called the police due to pt holding scissors to his throat, and threatening to stab and kill himself. Reported pt was c/o being "filled with air" and stated he was going to use the scissors to "deflate himself." Pt states he doesn't know why he is here. Reports police came into his house while he was sleeping in bed and brought him to the ED. States he told his he was thinking about stabbing himself while he was holding scissors, so she called 911 stating pt was going to kill himself. "I didn't really want to do it, so I didn't do it." Pt is a poor historian and reports conflicting information throughout MHE. Pt would state he wants to go home and repeated several times "I'm fine", "I'm okay", and "I'm doing good", and used those three phrases to answer a majority of t/w's questions during MHE. Pt would deny being suicidal, then when asked how long he'd had thoughts of suicide, pt would state he's had them for 1 week. Pt reports having a "terrible" appetite and sleep. C/o GARCIA keeping him awake at night. States he keeps hearing that he should . Describes the voice as "weird" and states he cannot recognize who it is or if it's male or female, but states the voice tells pt. to kill himself. Pt states he has been depressed and struggling with these auditory hallucinations and si for about 1 week. Pt was hospitalized on [facility] for approximately 1 month and was just released home 1 week ago. Pt stated at one point he thought he should be admitted, and then would state he could CFS and would like to go home to rest. Spoke w/ pt.s Loretta via telephone whom pt. resides with. Reports pt. had a "good day" the day he was released from [facility] last week, but that every day after that has been bad. States pt. stopped taking his medication when he returned home and has rapidly decompensated since. States pt. is having ah/vh, and several hallucinations regarding his body. Reports pt thinks he is shrinking, his nose is where his mouth should be, and that he is full of air and needs to be stabbed to deflate. Reports pt. has been incontinent, urinating and defecating diarrhea on their bed, and is spitting all over the house and pt.s . reports last night, pt. woke up at 2 am, and put scissors to his aorta, stating he was going slit his throat. reports she had to physically remove scissors from pt. reports concern for her and pt.s safety, and states she is not comfortable with him being discharged home, as he has been decompensating steadily since returning home, and is becoming "too much" for her to try to take care of and increasingly difficult to keep safe. VITAL SIGNS: See below. CURRENT MEDICATIONS: See below. MENTAL STATUS EXAMINATION: Patient is a 55 -year-old , Retired/Disabled, Domiciled, , male, who was brought to reports that he was depressed and had poor sleep and was suicidal. "I took a knife to my throat because I was not getting enough sleep." Speech: Is fluid, slow/low rate, tone and volume Language skills are intact Thought processes including: disorganized at times Thought content: reports mild depression and anxiety. Denies suicidal/homicidal ideation, planning or intent. Abstract reasoning, and computation: fair Description of associations: denies, none observed Description of abnormal or psychotic thoughts: denies, none observed. Judgment: fair Insight: fair Orientation: alert and oriented to person, place, time and situation Recent and remote memory: poor short term memory Attention span and concentration: poor Language: expansive Fund of knowledge: average Mood: depressed mood Affect: flat DIAGNOSES: Unspecified Psychosis Rule out Delirium HTN Generalized anxiety disorder ASSESSMENT: Patient found sleeping in his room, states that he is "physically no t well" reporting that he is having shortness of breath, he is not observed to be labored, having difficulty breathing, he is not in tri-pod position, he is not having shortness of breath, he is speaking in full and complete sentences without any hesitation or pauses. He is observed to be walking without laborious breathing. He reports being weak, cold, and feeling shaky. Patient is quite tremulous which is a change from his last admission, he was not noted to be tremulous in his previous admission. He reports continued depression with no suicidality. He appears to have poor cognition as he attempts to leave the floor, saying that he is ready to leave. Reinforced with patient that he is not mentally stable for discharge. Patient appears much older than his stated age, appears frail, has best pallor and is very disheveled. Alert and oriented but has poor attention and concentration. MANAGEMENT PLAN: Continue all medications TIME SPENT: 25 minutes. Vital Signs Vital Signs Date Time Temp Pulse Resp B/P (MAP) Pulse Ox O2 Delivery O2 Flow Rate FiO2 05/25/20 09:39 86 147/110 05/25/20 06:09 97.3 18 97 Room Air Current Medications Current Medications Medications (Trade) Dose Ordered Sig/Shanell Route PRN Reason Start Time Stop Time Status Last Admin Dose Admin Al Hydrox/Mg Hydrox/Simethicone (Mylanta) 30 ml Q4HP PRN PO HEARTBURN/INDIGESTION 05/23/20 19:15 Albuterol Sulfate (Proventil, Ventolin Hfa) 2 puff QID PRN INH SOB/WHEEZING 05/23/20 19:15 05/25/20 06:28 Amlodipine Besylate (Norvasc) 5 mg DAILY PO 05/24/20 17:40 05/25/20 09:39 Aspirin (Ecotrin) 81 mg DAILY PO 05/24/20 09:00 05/25/20 09:39 Fluoxetine HCl (PROzac) 10 mg DAILY PO 05/24/20 09:00 05/25/20 09:39 Home Med (Med Rec Complete!) ASDIRECTED XX 05/23/20 16:30 05/23/20 16:30 DC Ibuprofen (Advil) 400 mg Q6HP PRN PO PAIN 05/23/20 19:15 Magnesium Hydroxide (Milk Of Magnesia) 30 ml DAILYPRN PRN PO CONSTIPATION 05/23/20 19:15 Nicotine (Nicoderm Cq 14mg) 1 patch DAILY TD 05/24/20 09:00 05/25/20 09:39 Olanzapine (ZyPREXA ZYDIS) 5 mg Q6HP PRN PO ANXIETY/AGITATION 05/24/20 00:40 Olanzapine (ZyPREXA ZYDIS) 10 mg STAT STAT PO 05/24/20 00:37 05/24/20 00:39 DC 05/24/20 00:48 Omeprazole (PriLOSEC) 40 mg DAILY PO 05/25/20 09:00 05/25/20 09:39 Propranolol HCl (Inderal) 20 mg TID PO 05/23/20 21:00 05/25/20 09:39 Sucralfate (Carafate Suspension) 1 gm AC PO 05/24/20 07:30 05/25/20 11:16 Sucralfate (Carafate) 1 gm AC PO 05/23/20 17:30 05/24/20 07:41 DC 05/23/20 19:15 Trazodone HCl (Desyrel) 50 mg QHSP PRN PO INSOMNIA 05/23/20 19:15 Valsartan (Diovan) 160 mg DAILY PO 05/25/20 09:00 05/25/20 09:38 Allergies Coded Allergies: Penicillins (Verified Allergy, Intermediate, HIVES, 04/09/20) ANTONY ZALDIVAR CUSTOMER SERVICE ADVISOR May 25, 2020 13:57
[2020-05-25 16:30] VITALS: BP 153/104
[2020-05-25] MEDS: traZODone 50 MG TAB PO PRN (21:45)
[2020-05-26 06:26] VITALS: BP 142/96
[2020-05-26] MEDS: SUCRALFATE SUSP 1GM/10ML UD PO SCH ×3 (07:08→16:30)
[2020-05-26] MEDS: OMEPRAZOLE 20 MG CAP PO SCH (09:27)
[2020-05-26] MEDS: FLUoxetine 10 MG CAP PO SCH (09:27)
[2020-05-26] MEDS: PROPRANOLOL 20 MG TAB PO SCH ×3 (09:27→22:24)
[2020-05-26] MEDS: amLODIPine 5 MG TAB PO SCH (09:27)
[2020-05-26] MEDS: VALSARTAN 80 MG TAB (DIOVAN) PO SCH (09:27)
[2020-05-26] MEDS: ASPIRIN 81MG ENTERIC TABLET PO SCH (09:27)
[2020-05-26] MEDS: NICOTINE 14 MG/24 HR TRANSDERMAL TD SCH (09:28)
[2020-05-26] MEDS: MULTIVITAMINS/MINERALS THERAP 1 TAB PO SCH (11:21)
--- NOTE | 2020-05-26 15:03 | MHIPNPDOC ---
[facility] Progress Note Progress Note DATE OF SERVICE: 05/26/20 HISTORY: Patient is a 55 -year-old , Retired/Disabled, Domiciled, , male, who was brought to reports that he was depressed and had poor sleep and was suicidal. "I took a knife to my throat because I was not getting enough sleep." When asked again why he was brought to the hospital patient states "I had difficulty breathing." This is patient's 3rd hospitalization in psychiatry, and he has had over 20+ ED visits since July 2019. Patient had a hospitalization in February 2020 (02/29/20-03/02/20) for Acute Encephalopathy with an admission to psychiatry 03/02/20-03/07/20. He was recently admitted and discharged from this facility from 04/09/20-05/02/20. Patient appears to have poor recall of the events leading up to this hospitalization, he does report depression with suicidal ideation but cannot clarify his stressors. According to his , he had only one solid day of good cognitive functioning and has declined since his discharge. PER ED REPORT: Pt was brought in via ambulance on a 9.41 after pt's called the police due to pt holding scissors to his throat, and threatening to stab and kill himself. Reported pt was c/o being "filled with air" and stated he was going to use the scissors to "deflate himself." Pt states he doesn't know why he is here. Reports police came into his house while he was sleeping in bed and brought him to the ED. States he told his he was thinking about stabbing himself while he was holding scissors, so she called 911 stating pt was going to kill himself. "I didn't really want to do it, so I didn't do it." Pt is a poor historian and reports conflicting information throughout MHE. Pt would state he wants to go home and repeated several times "I'm fine", "I'm okay", and "I'm doing good", and used those three phrases to answer a majority of t/w's questions during MHE. Pt would deny being suicidal, then when asked how long he'd had thoughts of suicide, pt would state he's had them for 1 week. Pt reports having a "terrible" appetite and sleep. C/o GARCIA keeping him awake at night. States he keeps hearing that he should . Describes the voice as "weird" and states he cannot recognize who it is or if it's male or female, but states the voice tells pt. to kill himself. Pt states he has been depressed and struggling with these auditory hallucinations and si for about 1 week. Pt was hospitalized on [facility] for approximately 1 month and was just released home 1 week ago. Pt stated at one point he thought he should be admitted, and then would state he could CFS and would like to go home to rest. Spoke w/ pt.s Loretta via telephone whom pt. resides with. Reports pt. had a "good day" the day he was released from [facility] last week, but that every day after that has been bad. States pt. stopped taking his medication when he returned home and has rapidly decompensated since. States pt. is having ah/vh, and several hallucinations regarding his body. Reports pt thinks he is shrinking, his nose is where his mouth should be, and that he is full of air and needs to be stabbed to deflate. Reports pt. has been incontinent, urinating and defecating diarrhea on their bed, and is spitting all over the house and pt.s . reports last night, pt. woke up at 2 am, and put scissors to his aorta, stating he was going slit his throat. reports she had to physically remove scissors from pt. reports concern for her and pt.s safety, and states she is not comfortable with him being discharged home, as he has been decompensating steadily since returning home, and is becoming "too much" for her to try to take care of and increasingly difficult to keep safe. VITAL SIGNS: See below. CURRENT MEDICATIONS: See below. MENTAL STATUS EXAMINATION: Patient is a 55 -year-old , Retired/Disabled, Domiciled, , male, who was brought to reports that he was depressed and had poor sleep and was suicidal c/o being "filled with air" and stated he was going to use the scissors to "deflate himself." . Speech: Is impoverished, minimal, low tone and volume, slow rate Language skills are intact Thought processes including: many times disorganized Thought content: reports depression and anxiety, denies suicidal thinking Abstract reasoning, and computation: impaired Description of associations: denies but it seen having internal stimuli Description of abnormal or psychotic thoughts: auditory hallucinations ( seen responding to internal stimuli per staff) Judgment: impaired Insight: impaired Orientation: alert Recent and remote memory: impaired Attention span and concentration: poor Language: minimal Fund of knowledge: below average at times Mood: Depressed Affect: Flat DIAGNOSES: Unspecified Psychosis Rule out Delirium HTN Generalized anxiety disorder ASSESSMENT: Patient ambulating in the hallways. He is agreeable to interview, eating crackers in the interview. Reports depression and mild anxiety but denies need for his admission. When asked why he was brought in, he states "I was having trouble breathing." Reminded patient that he had taken scissors and stated to his that he needed to deflate himself. He states "I didn't mean it." Patient is often found in the hallways walking, he is attending groups. Patient has a best pallor, he is disheveled and although he is not reporting any suicidal ideations he historically is often exhibiting altered mental status. His reported that he has had very bizarre and delusional behaviors since his discharge from this facility. She is not allowing him to return at this time. He is able to answer questions but he often answers with paucity. His thought process is slow and disorganized at times during the interview. 1735: Primary RN reports that patient is exhibiting strange behaviors "I can't eat anything - my mouth is too small to eat anything." Pulls his face mask down and shows his mouth. Exhibiting behaviors of that of Sundowners patient. MANAGEMENT PLAN: Continue all medications, will discharge when stable. TIME SPENT: 25 minutes. Vital Signs Vital Signs Date Time Temp Pulse Resp B/P (MAP) Pulse Ox O2 Delivery O2 Flow Rate FiO2 05/26/20 09:27 142/96 05/26/20 09:27 57 05/26/20 06:26 98.5 16 97 Room Air Current Medications Current Medications Medications (Trade) Dose Ordered Sig/Shanell Route PRN Reason Start Time Stop Time Status Last Admin Dose Admin Al Hydrox/Mg Hydrox/Simethicone (Mylanta) 30 ml Q4HP PRN PO HEARTBURN/INDIGESTION 05/23/20 19:15 Albuterol Sulfate (Proventil, Ventolin Hfa) 2 puff QID PRN INH SOB/WHEEZING 05/23/20 19:15 05/25/20 06:28 Amlodipine Besylate (Norvasc) 5 mg DAILY PO 05/24/20 17:40 05/26/20 09:27 Aspirin (Ecotrin) 81 mg DAILY PO 05/24/20 09:00 05/26/20 09:27 Fluoxetine HCl (PROzac) 10 mg DAILY PO 05/24/20 09:00 05/26/20 09:27 Home Med (Med Rec Complete!) ASDIRECTED XX 05/23/20 16:30 05/23/20 16:30 DC Ibuprofen (Advil) 400 mg Q6HP PRN PO PAIN 05/23/20 19:15 Magnesium Hydroxide (Milk Of Magnesia) 30 ml DAILYPRN PRN PO CONSTIPATION 05/23/20 19:15 Multivitamins (Theragram-M) 1 tab DAILY PO 05/26/20 12:00 05/26/20 11:21 Nicotine (Nicoderm Cq 14mg) 1 patch DAILY TD 05/24/20 09:00 05/26/20 09:28 Olanzapine (ZyPREXA ZYDIS) 5 mg Q6HP PRN PO ANXIETY/AGITATION 05/24/20 00:40 Olanzapine (ZyPREXA ZYDIS) 10 mg STAT STAT PO 05/24/20 00:37 05/24/20 00:39 DC 05/24/20 00:48 Omeprazole (PriLOSEC) 40 mg DAILY PO 05/25/20 09:00 05/26/20 09:27 Propranolol HCl (Inderal) 20 mg TID PO 05/23/20 21:00 05/26/20 09:27 Sucralfate (Carafate Suspension) 1 gm AC PO 05/24/20 07:30 05/26/20 11:20 Sucralfate (Carafate) 1 gm AC PO 05/23/20 17:30 05/24/20 07:41 DC 05/23/20 19:15 Trazodone HCl (Desyrel) 50 mg QHSP PRN PO INSOMNIA 05/23/20 19:15 05/25/20 21:45 Valsartan (Diovan) 160 mg DAILY PO 05/25/20 09:00 05/26/20 09:27 Allergies Coded Allergies: Penicillins (Verified Allergy, Intermediate, HIVES, 04/09/20) ANTONY ZALDIVAR NP May 26, 2020 14:27
[2020-05-26 18:23] VITALS: BP 125/91
[2020-05-26] MEDS: traZODone 50 MG TAB PO PRN (22:17)
[2020-05-27 06:29] VITALS: BP 117/67
[2020-05-27] MEDS: SUCRALFATE SUSP 1GM/10ML UD PO SCH ×3 (06:38→16:42)
[2020-05-27 08:15] LABS: BASO % 0.5 % (0.0-1.0); EOS # 0.1 10^3/uL (0.0-0.5); EOS % 3.4 % (0.0-3.0); HEMATOCRIT 36.4 % (42.0-52.0); LYMPH # 1.6 10^3/uL (1.5-5.0); LYMPH % 42.2 % (24.0-44.0); MEAN CORPUSCULAR HEMOGLOBIN 31.9 pg (27.0-33.0); MEAN CORPUSCULAR VOLUME 96.8 fl (80.0-96.0); MONO # 0.3 10^3/uL (0.0-0.8); MONO % 7.6 % (2.0-8.0); NEUTROPHILS # 1.8 10^3/uL (1.5-8.5); PLATELET COUNT, AUTOMATED 174 10^3/uL (150-450); RED BLOOD COUNT 3.76 10^6/uL (4.30-6.10); WHITE BLOOD COUNT 3.8 10^3/uL (4.0-10.0)
[2020-05-27 08:49] LABS: ALBUMIN 3.2 GM/DL (3.2-5.2); ALT/SGPT 12 U/L (12-78); BILIRUBIN,TOTAL 0.3 MG/DL (0.2-1.0); BLOOD UREA NITROGEN 21 MG/DL (7-18); CALCIUM LEVEL 8.7 MG/DL (8.5-10.1); CARBON DIOXIDE LEVEL 29 MEQ/L (21-32); CHLORIDE LEVEL 111 MEQ/L (98-107); CREATININE FOR GFR 0.83 MG/DL (0.70-1.30); GLOMERULAR FILTRATION RATE > 60.0 (>56); GLUCOSE, FASTING 91 MG/DL (70-100); POTASSIUM SERUM 4.1 MEQ/L (3.5-5.1); SODIUM LEVEL 144 MEQ/L (136-145); TOTAL PROTEIN 5.8 GM/DL (6.4-8.2)
[2020-05-27] MEDS: PROPRANOLOL 20 MG TAB PO SCH ×3 (09:20→19:50)
[2020-05-27] MEDS: NICOTINE 14 MG/24 HR TRANSDERMAL TD SCH (09:20)
[2020-05-27] MEDS: FLUoxetine 10 MG CAP PO SCH (09:21)
[2020-05-27] MEDS: amLODIPine 5 MG TAB PO SCH (09:21)
[2020-05-27] MEDS: MULTIVITAMINS/MINERALS THERAP 1 TAB PO SCH (09:21)
[2020-05-27] MEDS: VALSARTAN 80 MG TAB (DIOVAN) PO SCH (09:21)
[2020-05-27] MEDS: ASPIRIN 81MG ENTERIC TABLET PO SCH (09:21)
[2020-05-27] MEDS: OMEPRAZOLE 20 MG CAP PO SCH (09:21)
[2020-05-27 10:16] LABS: FOLATE 6.9 NG/ML (>5.4)
[2020-05-27 10:32] LABS: VITAMIN B12 LEVEL 191 PG/ML (247-911)
--- NOTE | 2020-05-27 12:20 | MHIPNPDOC ---
[facility] Progress Note Progress Note DATE OF SERVICE: 05/27/20 HISTORY: Patient is a 55 -year-old , Retired/Disabled, Domiciled, , male, who was brought to reports that he was depressed and had poor sleep and was suicidal. "I took a knife to my throat because I was not getting enough sleep." When asked again why he was brought to the hospital patient states "I had difficulty breathing." This is patient's 3rd hospitalization in psychiatry, and he has had over 20+ ED visits since July 2019. Patient had a hospitalization in February 2020 (02/29/20-03/02/20) for Acute Encephalopathy with an admission to psychiatry 03/02/20-03/07/20. He was recently admitted and discharged from this facility from 04/09/20-05/02/20. Patient appears to have poor recall of the events leading up to this hospitalization, he does report depression with suicidal ideation but cannot clarify his stressors. According to his , he had only one solid day of good cognitive functioning and has declined since his discharge. Review the recent blood work below: Abnormalities noted in WBC, RBC H+H, MVC, EOS%, Chloride, BUN, Total protein, Vitamin B12. WBC and RBC have been trending down since 03/2020. Will alert hospitalist. Hospitalist aware. VITAL SIGNS: See below. CURRENT MEDICATIONS: See below. MENTAL STATUS EXAMINATION: Patient is a 55 -year-old , Retired/Disabled, Domiciled, , male, who was brought to reports that he was depressed and had poor sleep and was suicidal c/o being "filled with air" and stated he was going to use the scissors to "deflate himself." . Speech: Is impoverished, minimal, low tone and volume, slow rate Language skills are intact Thought processes including: many times disorganized Thought content: reports depression and anxiety, denies suicidal thinking Abstr act reasoning, and computation: impaired Description of associations: denies but it seen having internal stimuli Description of abnormal or psychotic thoughts: auditory hallucinations ( seen responding to internal stimuli per staff) Judgment: impaired Insight: impaired Orientation: alert Recent and remote memory: impaired Attention span and concentration: poor Language: minimal Fund of knowledge: below average at times Mood: Depressed Affect: Flat DIAGNOSES: Unspecified Psychosis Rule out Delirium HTN Generalized anxiety disorder ASSESSMENT: Patient found sleeping. He is disheveled and unkempt. Patient appears very tired and frail. Continued best pallor. States that he wants to return to sleeping. Doesn't want to engage in the interview. He reports that nora cruz is depressed but not anxious. Reports no pain, he is quite drowsy in the interview. History of Macrocytic Anemia. He is often disconnected in the interview, at times was confused in the interview. "I am tired and want to go back to sleep." Patient then got up and followed this magnetic tape typewriter operator into the hallway. His cognitive functioning is mildly poor and many times intermittently moderately to severely poor. He is not stable for discharge today as he has poor insight and poor judgment, varying alertness. MANAGEMENT PLAN: Continue all medications, will discharge when stable. TIME SPENT: 25 minutes. Vital Signs Vital Signs Date Time Temp Pulse Resp B/P (MAP) Pulse Ox O2 Delivery O2 Flow Rate FiO2 05/27/20 09:21 81 165/110 05/27/20 08:30 Room Air 05/27/20 06:29 97.0 18 99 Laboratory Data 24H Labs Laboratory Tests 2 05/27/20 07:12: Immature Granulocyte % (Auto) 0.3, Neutrophils (%) (Auto) 46.0, Lymphocytes (%) (Auto) 42.2, Monocytes (%) (Auto) 7.6, Eosinophils (%) (Auto) 3.4H, Basophils (%) (Auto) 0.5, Neutrophils # (Auto) 1.8, Lymphocytes # (Auto) 1.6, Monocytes # (Auto) 0.3, Eosinophils # (Auto) 0.1, Basophils # (Auto) 0.0, Nucleated Red Blood Cells % (auto) 0.0, Anion Gap 4L, Glomerular Filtration Rate > 60.0, Calcium Level 8.7, Total Bilirubin 0.3, Aspartate Amino Transf (AST/SGOT) 5L, Alanine Aminotransferase (ALT/SGPT) 12, Alkaline Phosphatase 77, Total Protein 5.8L, Albumin 3.2, Albumin/Globulin Ratio 1.2, Vitamin B12 Level 191L, Folate 6.9 CBC/BMP Laboratory Tests 05/27/20 07:12 Current Medications Current Medications Medications (Trade) Dose Ordered Sig/Shanell Route PRN Reason Start Time Stop Time Status Last Admin Dose Admin Al Hydrox/Mg Hydrox/Simethicone (Mylanta) 30 ml Q4HP PRN PO HEARTBURN/INDIGESTION 05/23/20 19:15 Albuterol Sulfate (Proventil, Ventolin Hfa) 2 puff QID PRN INH SOB/WHEEZING 05/23/20 19:15 05/25/20 06:28 Amlodipine Besylate (Norvasc) 5 mg DAILY PO 05/24/20 17:40 05/27/20 09:21 Aspirin (Ecotrin) 81 mg DAILY PO 05/24/20 09:00 05/27/20 09:21 Fluoxetine HCl (PROzac) 10 mg DAILY PO 05/24/20 09:00 05/27/20 09:21 Home Med (Med Rec Complete!) ASDIRECTED XX 05/23/20 16:30 05/23/20 16:30 DC Ibuprofen (Advil) 400 mg Q6HP PRN PO PAIN 05/23/20 19:15 Magnesium Hydroxide (Milk Of Magnesia) 30 ml DAILYPRN PRN PO CONSTIPATION 05/23/20 19:15 Multivitamins (Theragram-M) 1 tab DAILY PO 05/26/20 12:00 05/27/20 09:21 Nicotine (Nicoderm Cq 14mg) 1 patch DAILY TD 05/24/20 09:00 05/27/20 09:20 Olanzapine (ZyPREXA ZYDIS) 5 mg Q6HP PRN PO ANXIETY/AGITATION 05/24/20 00:40 05/26/20 22:17 Olanzapine (ZyPREXA ZYDIS) 10 mg STAT STAT PO 05/24/20 00:37 05/24/20 00:39 DC 05/24/20 00:48 Omeprazole (PriLOSEC) 40 mg DAILY PO 05/25/20 09:00 05/27/20 09:21 Propranolol HCl (Inderal) 20 mg TID PO 05/23/20 21:00 05/27/20 09:20 Sucralfate (Carafate Suspension) 1 gm AC PO 05/24/20 07:30 05/27/20 06:38 Sucralfate (Carafate) 1 gm AC PO 05/23/20 17:30 05/24/20 07:41 DC 05/23/20 19:15 Trazodone HCl (Desyrel) 50 mg QHSP PRN PO INSOMNIA 05/23/20 19:15 05/26/20 22:17 Valsartan (Diovan) 160 mg DAILY PO 05/25/20 09:00 05/27/20 09:21 Allergies Coded Allergies: Penicillins (Verified Allergy, Intermediate, HIVES, 04/09/20) ANTONY ZALDIVAR NP May 27, 2020 12:05
[2020-05-27] MEDS: CYANOCOBALAMIN 1,000MCG/ML VIAL (J3420) SC SCH (15:28)
[2020-05-27 16:11] VITALS: BP 118/81
[2020-05-27] MEDS: traZODone 50 MG TAB PO PRN (19:50)
[2020-05-28] MEDS: SUCRALFATE SUSP 1GM/10ML UD PO SCH ×3 (06:37→16:46)
[2020-05-28 07:32] VITALS: BP 120/70
[2020-05-28] MEDS: FLUoxetine 10 MG CAP PO SCH (09:02)
[2020-05-28] MEDS: MULTIVITAMINS/MINERALS THERAP 1 TAB PO SCH (09:02)
[2020-05-28] MEDS: NICOTINE 14 MG/24 HR TRANSDERMAL TD SCH (09:02)
[2020-05-28] MEDS: OMEPRAZOLE 20 MG CAP PO SCH (09:03)
[2020-05-28] MEDS: ASPIRIN 81MG ENTERIC TABLET PO SCH (09:03)
[2020-05-28] MEDS: PROPRANOLOL 20 MG TAB PO SCH ×3 (09:03→22:07)
[2020-05-28] MEDS: amLODIPine 5 MG TAB PO SCH (09:03)
[2020-05-28] MEDS: VALSARTAN 80 MG TAB (DIOVAN) PO SCH (09:03)
--- NOTE | 2020-05-28 14:39 | MHIPNPDOC ---
[facility] Progress Note Progress Note DATE OF SERVICE: 05/28/20 HISTORY: As per Malissa Ramsey: "Patient is a 55 -year-old , Retired/Disabled, Domiciled, , male, who was brought to reports that he was depressed and had poor sleep and was suicidal. "I took a knife to my throat because I was not getting enough sleep." When asked again why he was brought to the hospital patient states "I had difficulty breathing." This is patient's 3rd hospitalization in psychiatry, and he has had over 20+ ED visits since July 2019. Patient had a hospitalization in February 2020 (02/29/20-03/02/20) for Acute Encephalopathy with an admission to psychiatry 03/02/20-03/07/20. He was recently admitted and discharged from this facility from 04/09/20-05/02/20. Patient appears to have poor recall of the events leading up to this hospitalization, he does report depression with suicidal ideation but cannot clarify his stressors. According to his , he had only one solid day of good cognitive functioning and has declined since his discharge. Review the recent blood work below: Abnormalities noted in WBC, RBC H+H, MVC, EOS%, Chloride, BUN, Total protein, Vitamin B12. WBC and RBC have been trending down since 03/2020. Will alert hospitalist. Hospitalist aware. " VITAL SIGNS: See below. CURRENT MEDICATIONS: See below. MENTAL STATUS EXAMINATION: Patient is a 55 -year-old , Retired/Disabled, Domiciled, , male, who was brought to reports that he was depressed and had poor sleep and was suicidal c/o being "filled with air" and stated he was going to use the scissors to "deflate himself." . Speech: Is impoverished, minimal, low tone and volume, slow rate Language skills are intact Thought processes including: Disorganized Thought content: He says he is depressed and anxious but denies SI/HI at this time. He is paranoid, he looks several times at the computer screen, was very suspicious about it, got up and left the room. Description of associations: loose Description of abnormal or psychotic thoughts: He seems to be responding to internal stimuli Judgment: impaired Insight: impaired Orientation: alert Recent and remote memory: impaired Attention span and concentration: poor Language: poverty of language Fund of knowledge: below average at times Mood: Depressed and anxious Affect: Flat DIAGNOSES: Unspecified Psychosis Rule out Delirium HTN Generalized anxiety disorder ASSESSMENT: Patient was seen today but he was visibly nervous and as soon as I introduced myself, he started talking to me, he was very nervous about the computer screen, kept turning around to look at it, He told me he was admitted for being suicidal but when I asked him what had triggered his suicidal ideation, he looked again at the screen, got up and left the room. He said "Ok, I', going to go back to bed". This program writer is aware of patient's medical problems, of him being weak and the abnormalities observed on his CBC with differential Have discussed with Malissa Ramsey and we both thought it would be good to involve the Hospitalist. He has received a dose of vitamin B 12 via IM. Will keep monitoring him and will re evaluate tomorrow. At this time, he is still psychotic, anxious and depressed but he has been hospitalized here before and it takes time for him to improve. MANAGEMENT PLAN: Continue all medications, will discharge when stable. TIME SPENT: 25 minutes. Vital Signs Vital Signs Date Time Temp Pulse Resp B/P (MAP) Pulse Ox O2 Delivery O2 Flow Rate FiO2 05/28/20 09:03 90 134/88 05/28/20 07:32 97.9 18 05/27/20 16:11 97 Room Air Current Medications Current Medications Medications (Trade) Dose Ordered Sig/Shanell Route PRN Reason Start Time Stop Time Status Last Admin Dose Admin Al Hydrox/Mg Hydrox/Simethicone (Mylanta) 30 ml Q4HP PRN PO HEARTBURN/INDIGESTION 05/23/20 19:15 Albuterol Sulfate (Proventil, Ventolin Hfa) 2 puff QID PRN INH SOB/WHEEZING 05/23/20 19:15 05/25/20 06:28 Amlodipine Besylate (Norvasc) 5 mg DAILY PO 05/24/20 17:40 05/28/20 09:03 Aspirin (Ecotrin) 81 mg DAILY PO 05/24/20 09:00 05/28/20 09:03 Cyanocobalamin (Vitamin B12 Injection) 1,000 mcg Q7D@09 SC 05/27/20 09:00 05/27/20 15:28 Fluoxetine HCl (PROzac) 10 mg DAILY PO 05/24/20 09:00 05/28/20 09:02 Home Med (Med Rec Complete!) ASDIRECTED XX 05/23/20 16:30 05/23/20 16:30 DC Ibuprofen (Advil) 400 mg Q6HP PRN PO PAIN 05/23/20 19:15 Magnesium Hydroxide (Milk Of Magnesia) 30 ml DAILYPRN PRN PO CONSTIPATION 05/23/20 19:15 Multivitamins (Theragram-M) 1 tab DAILY PO 05/26/20 12:00 05/28/20 09:02 Nicotine (Nicoderm Cq 14mg) 1 patch DAILY TD 05/24/20 09:00 05/28/20 09:02 Olanzapine (ZyPREXA ZYDIS) 5 mg Q6HP PRN PO ANXIETY/AGITATION 05/24/20 00:40 05/26/20 22:17 Olanzapine (ZyPREXA ZYDIS) 10 mg STAT STAT PO 05/24/20 00:37 05/24/20 00:39 DC 05/24/20 00:48 Omeprazole (PriLOSEC) 40 mg DAILY PO 05/25/20 09:00 05/28/20 09:03 Propranolol HCl (Inderal) 20 mg TID PO 05/23/20 21:00 05/28/20 09:03 Sucralfate (Carafate Suspension) 1 gm AC PO 05/24/20 07:30 05/28/20 11:55 Sucralfate (Carafate) 1 gm AC PO 05/23/20 17:30 05/24/20 07:41 DC 05/23/20 19:15 Trazodone HCl (Desyrel) 50 mg QHSP PRN PO INSOMNIA 05/23/20 19:15 05/27/20 19:50 Valsartan (Diovan) 160 mg DAILY PO 05/25/20 09:00 05/28/20 09:03 Allergies Coded Allergies: Penicillins (Verified Allergy, Intermediate, HIVES, 04/09/20) HARRY LUNDBERG MD May 28, 2020 14:39
[2020-05-28] MEDS: ALBUTEROL 90 MCG/ACT 8GM HFA INHALER INH PRN (15:16)
[2020-05-28 16:06] VITALS: BP 118/72
[2020-05-29 06:00] VITALS: BP 133/76
[2020-05-29] MEDS: SUCRALFATE SUSP 1GM/10ML UD PO SCH ×4 (06:42→16:45)
[2020-05-29] MEDS: PROPRANOLOL 20 MG TAB PO SCH ×3 (09:00→21:57)
[2020-05-29] MEDS: NICOTINE 14 MG/24 HR TRANSDERMAL TD SCH (09:00)
[2020-05-29] MEDS: FLUoxetine 10 MG CAP PO SCH (09:00)
[2020-05-29] MEDS: VALSARTAN 80 MG TAB (DIOVAN) PO SCH (09:00)
[2020-05-29] MEDS: amLODIPine 5 MG TAB PO SCH (09:00)
[2020-05-29] MEDS: OMEPRAZOLE 20 MG CAP PO SCH (09:00)
[2020-05-29] MEDS: ASPIRIN 81MG ENTERIC TABLET PO SCH (09:00)
[2020-05-29] MEDS: MULTIVITAMINS/MINERALS THERAP 1 TAB PO SCH (09:00)
--- NOTE | 2020-05-29 16:21 | MHIPNPDOC ---
[facility] Progress Note Progress Note DATE OF SERVICE: 05/29/20 HISTORY: As per Malissa Ramsey: "Patient is a 55 -year-old , Retired/Disabled, Domiciled, , male, who was brought to reports that he was depressed and had poor sleep and was suicidal. "I took a knife to my throat because I was not getting enough sleep." When asked again why he was brought to the hospital patient states "I had difficulty breathing." This is patient's 3rd hospitalization in psychiatry, and he has had over 20+ ED visits since July 2019. Patient had a hospitalization in February 2020 (02/29/20-03/02/20) for Acute Encephalopathy with an admission to psychiatry 03/02/20-03/07/20. He was recently admitted and discharged from this facility from 04/09/20-05/02/20. Patient appears to have poor recall of the events leading up to this hospitalization, he does report depression with suicidal ideation but cannot clarify his stressors. According to his , he had only one solid day of good cognitive functioning and has declined since his discharge. Review the recent blood work below: Abnormalities noted in WBC, RBC H+H, MVC, EOS%, Chloride, BUN, Total protein, Vitamin B12. WBC and RBC have been trending down since 03/2020. Will alert hospitalist. Hospitalist aware. " VITAL SIGNS: See below. CURRENT MEDICATIONS: See below. MENTAL STATUS EXAMINATION: Patient is a 55 -year-old , Retired/Disabled, Domiciled, , male, who was brought to reports that he was depressed and had poor sleep and was suicidal c/o being "filled with air" and stated he was going to use the scissors to "deflate himself." . Speech: Is impoverished, minimal, low tone and volume, slow rate Language skills are intact Thought processes including: Disorganized Thought content: He says he is not depressed and anxious but denies SI/HI at this time. He denies paranoid thoughts. was very suspicious about it, got up and left the Description of associations: less loose Description of abnormal or psychotic thoughts: He doesn't seem to be responding to internal stimuli Judgment: impaired Insight: impaired Orientation: alert Recent and remote memory: impaired Attention span and concentration: improved today Language: adequate Fund of knowledge: unable to assess Mood: sad Affect: Flat DIAGNOSES: Unspecified Psychosis Rule out Delirium HTN Generalized anxiety disorder ASSESSMENT: The patient seems to be doing better today, he was not paranoid today, he was more rational. Will continue with the same treatment plan. MANAGEMENT PLAN: Continue all medications, will discharge when stable. TIME SPENT: 25 minutes. Vital Signs Vital Signs Date Time Temp Pulse Resp B/P (MAP) Pulse Ox O2 Delivery O2 Flow Rate FiO2 05/29/20 16:07 100 139/80 05/29/20 06:00 98.2 16 97 05/28/20 16:06 Room Air Current Medications Current Medications Medications (Trade) Dose Ordered Sig/Shanell Route PRN Reason Start Time Stop Time Status Last Admin Dose Admin Al Hydrox/Mg Hydrox/Simethicone (Mylanta) 30 ml Q4HP PRN PO HEARTBURN/INDIGESTION 05/23/20 19:15 Albuterol Sulfate (Proventil, Ventolin Hfa) 2 puff QID PRN INH SOB/WHEEZING 05/23/20 19:15 05/28/20 15:16 Amlodipine Besylate (Norvasc) 5 mg DAILY PO 05/24/20 17:40 05/28/20 09:03 Aspirin (Ecotrin) 81 mg DAILY PO 05/24/20 09:00 05/28/20 09:03 Cyanocobalamin (Vitamin B12 Injection) 1,000 mcg Q7D@09 SC 05/27/20 09:00 05/27/20 15:28 Fluoxetine HCl (PROzac) 10 mg DAILY PO 05/24/20 09:00 05/28/20 09:02 Home Med (Med Rec Complete!) ASDIRECTED XX 05/23/20 16:30 05/23/20 16:30 DC Ibuprofen (Advil) 400 mg Q6HP PRN PO PAIN 05/23/20 19:15 Magnesium Hydroxide (Milk Of Magnesia) 30 ml DAILYPRN PRN PO CONSTIPATION 05/23/20 19:15 Multivitamins (Theragram-M) 1 tab DAILY PO 05/26/20 12:00 05/28/20 09:02 Nicotine (Nicoderm Cq 14mg) 1 patch DAILY TD 05/24/20 09:00 05/28/20 09:02 Olanzapine (ZyPREXA ZYDIS) 5 mg Q6HP PRN PO ANXIETY/AGITATION 05/24/20 00:40 05/26/20 22:17 Olanzapine (ZyPREXA ZYDIS) 10 mg STAT STAT PO 05/24/20 00:37 05/24/20 00:39 DC 05/24/20 00:48 Omeprazole (PriLOSEC) 40 mg DAILY PO 05/25/20 09:00 05/28/20 09:03 Propranolol HCl (Inderal) 20 mg TID PO 05/23/20 21:00 05/29/20 16:07 Sucralfate (Carafate Suspension) 1 gm AC PO 05/24/20 07:30 05/29/20 12:49 Sucralfate (Carafate) 1 gm AC PO 05/23/20 17:30 05/24/20 07:41 DC 05/23/20 19:15 Trazodone HCl (Desyrel) 50 mg QHSP PRN PO INSOMNIA 05/23/20 19:15 05/27/20 19:50 Valsartan (Diovan) 160 mg DAILY PO 05/25/20 09:00 05/28/20 09:03 Allergies Coded Allergies: Penicillins (Verified Allergy, Intermediate, HIVES, 04/09/20) HARRY LUNDBERG MD May 29, 2020 16:19
[2020-05-29 16:58] VITALS: BP 139/80
[2020-05-30 06:15] VITALS: BP 145/91
[2020-05-30] MEDS: SUCRALFATE SUSP 1GM/10ML UD PO SCH ×3 (06:34→16:53)
[2020-05-30] MEDS: NICOTINE 14 MG/24 HR TRANSDERMAL TD SCH (09:00)
[2020-05-30] MEDS: ASPIRIN 81MG ENTERIC TABLET PO SCH (09:00)
[2020-05-30] MEDS: PROPRANOLOL 20 MG TAB PO SCH ×3 (09:00→20:04)
[2020-05-30] MEDS: amLODIPine 5 MG TAB PO SCH (09:00)
[2020-05-30] MEDS: VALSARTAN 80 MG TAB (DIOVAN) PO SCH (09:00)
[2020-05-30] MEDS: MULTIVITAMINS/MINERALS THERAP 1 TAB PO SCH (09:00)
[2020-05-30] MEDS: OMEPRAZOLE 20 MG CAP PO SCH (09:00)
[2020-05-30] MEDS: FLUoxetine 10 MG CAP PO SCH (09:00)
--- NOTE | 2020-05-30 14:48 | MHIPNPDOC ---
[facility] Progress Note Progress Note DATE OF SERVICE: 05/30/20 HiSTORY: Patient is a 55 -year-old , Retired/Disabled, Domiciled, , male, who was brought to reports that he was depressed and had poor sleep and was suicidal. "I took a knife to my throat because I was not getting enough sleep." When asked again why he was brought to the hospital patient states "I had difficulty breathing." This is patient's 3rd hospitalization in psychiatry, and he has had over 20+ ED visits since July 2019. Patient had a hospitalization in February 2020 (02/29/20-03/02/20) for Acute Encephalopathy with an admission to psychiatry 03/02/20-03/07/20. He was recently admitted and discharged from this facility from 04/09/20-05/02/20. Patient appears to have poor recall of the events leading up to this hospitalization, he does report depression with suicidal ideation but cannot clarify his stressors. According to his , he had only one solid day of good cognitive functioning and has declined since his discharge. Review the recent blood work below: Abnormalities noted in WBC, RBC H+H, MVC, EOS%, Chloride, BUN, Total protein, Vitamin B12. WBC and RBC have been trending down since 03/2020. Will alert hospitalist. Hospitalist aware. VITAL SIGNS: See below. CURRENT MEDICATIONS: See below. MENTAL STATUS EXAMINATION: Patient is a 55 -year-old , Retired/Disabled, Domiciled, , male, who was brought to reports that he was depressed and had poor sleep and was suicidal c/o being "filled with air" and stated he was going to use the scissors to "deflate himself." . Speech: Is impoverished, minimal, low tone and volume, slow rate Language skills are intact Thought processes including: linear today during interview Thought content: reports depression and anxiety, denies suicidal thinking Abstract reasoning, and computation: impaired Description of associations: denies Description of abnormal or psychotic thoughts: denies Judgment: impaired Insight: impaired Orientation: alert Recent and remote memory: impaired Attention span and concentration: poor Language: minimal Fund of knowledge: below average at times Mood: reports depressed Affect: Flat DIAGNOSES: Major Depressive Disorder with psychotic features HTN Generalized anxiety disorder ASSESSMENT: Patient found in his room on his bed, appears apathetic and unmotivated. States he is "good" but has been isolative, withdrawn and appears to be tired. Denies SI or hallucinations. Asked what brought him to the hospital, he says " I used a pair of scissors". Says this is his third admission to this facility. He is alert and oriented to self and place. Says he is tolerating his medications well but does not know what medications he takes and notes indicates that he in not compliant with his medications. Says he spoke with his yesterday and is ready to go home. Patient had had alternating cognitive functioning, one day he says he wants home and the next day he states that he is " a lunatic". He is not addressing his ADL's and mostly stays in bed, unkempt. Patient appears depressed and does not engage and does not actively participate in conversation. He is disengaged and disconnected. Patient is not stable enough for discharge at this time due to continued depression, currently not compliant with his medications, has poor insight and judgement. Given that this is his third admission, we'd like to stabilize him. His is in agreement that discharge at this point will be too soon based on conversations on the phone. MANAGEMENT PLAN: Continue all medications, will discharge when stable. TIME SPENT: 25 minutes. Vital Signs Vital Signs Date Time Temp Pulse Resp B/P (MAP) Pulse Ox O2 Delivery O2 Flow Rate FiO2 05/30/20 06:15 98.3 75 16 145/91 (109) 100 Room Air Current Medications Current Medications Medications (Trade) Dose Ordered Sig/Shanell Route PRN Reason Start Time Stop Time Status Last Admin Dose Admin Al Hydrox/Mg Hydrox/Simethicone (Mylanta) 30 ml Q4HP PRN PO HEARTBURN/INDIGESTION 05/23/20 19:15 05/29/20 19:38 Albuterol Sulfate (Proventil, Ventolin Hfa) 2 puff QID PRN INH SOB/WHEEZING 05/23/20 19:15 05/28/20 15:16 Amlodipine Besylate (Norvasc) 5 mg DAILY PO 05/24/20 17:40 05/28/20 09:03 Aspirin (Ecotrin) 81 mg DAILY PO 05/24/20 09:00 05/28/20 09:03 Cyanocobalamin (Vitamin B12 Injection) 1,000 mcg Q7D@ [place] 05/27/20 09:00 05/27/20 15:28 Fluoxetine HCl (PROzac) 10 mg DAILY PO 05/24/20 09:00 05/28/20 09:02 Home Med (Med Rec Complete!) ASDIRECTED XX 05/23/20 16:30 05/23/20 16:30 DC Ibuprofen (Advil) 400 mg Q6HP PRN PO PAIN 05/23/20 19:15 Magnesium Hydroxide (Milk Of Magnesia) 30 ml DAILYPRN PRN PO CONSTIPATION 05/23/20 19:15 Multivitamins (Theragram-M) 1 tab DAILY PO 05/26/20 12:00 05/28/20 09:02 Nicotine (Nicoderm Cq 14mg) 1 patch DAILY TD 05/24/20 09:00 05/28/20 09:02 Olanzapine (ZyPREXA ZYDIS) 5 mg Q6HP PRN PO ANXIETY/AGITATION 05/24/20 00:40 05/26/20 22:17 Olanzapine (ZyPREXA ZYDIS) 10 mg STAT STAT PO 05/24/20 00:37 05/24/20 00:39 DC 05/24/20 00:48 Omeprazole (PriLOSEC) 40 mg DAILY PO 05/25/20 09:00 05/28/20 09:03 Propranolol HCl (Inderal) 20 mg TID PO 05/23/20 21:00 05/29/20 21:57 Sucralfate (Carafate Suspension) 1 gm AC PO 05/24/20 07:30 05/30/20 06:34 Sucralfate (Carafate) 1 gm AC PO 05/23/20 17:30 05/24/20 07:41 DC 05/23/20 19:15 Trazodone HCl (Desyrel) 50 mg QHSP PRN PO INSOMNIA 05/23/20 19:15 05/27/20 19:50 Valsartan (Diovan) 160 mg DAILY PO 05/25/20 09:00 05/28/20 09:03 Allergies Coded Allergies: Penicillins (Verified Allergy, Intermediate, HIVES, 04/09/20) ANTONY ZALDIVAR ETL ARCHITECT May 30, 2020 14:35
[2020-05-30 17:59] VITALS: BP 130/85
[2020-05-30] MEDS: traZODone 50 MG TAB PO PRN (20:03)
[2020-05-30] MEDS: IBUPROFEN 400MG TAB PO PRN (20:05)
[2020-05-31] MEDS: SUCRALFATE SUSP 1GM/10ML UD PO SCH ×3 (06:36→17:30)
[2020-05-31 06:45] VITALS: BP 123/90
[2020-05-31] MEDS: NICOTINE 14 MG/24 HR TRANSDERMAL TD SCH (09:00)
[2020-05-31] MEDS: MULTIVITAMINS/MINERALS THERAP 1 TAB PO SCH (09:00)
[2020-05-31] MEDS: OMEPRAZOLE 20 MG CAP PO SCH (09:00)
[2020-05-31] MEDS: VALSARTAN 80 MG TAB (DIOVAN) PO SCH (09:00)
[2020-05-31] MEDS: FLUoxetine 10 MG CAP PO SCH (09:41)
[2020-05-31] MEDS: amLODIPine 5 MG TAB PO SCH (09:42)
[2020-05-31] MEDS: PROPRANOLOL 20 MG TAB PO SCH ×3 (11:46→22:07)
[2020-05-31] MEDS: ASPIRIN 81MG ENTERIC TABLET PO SCH (11:46)
--- NOTE | 2020-05-31 16:54 | MHIPNPDOC ---
[facility] Progress Note Progress Note DATE OF SERVICE: 05/31/20 HiSTORY: Patient is a 55 -year-old , Retired/Disabled, Domiciled, , male, who was brought to reports that he was depressed and had poor sleep and was suicidal. "I took a knife to my throat because I was not getting enough sleep." When asked again why he was brought to the hospital patient states "I had difficulty breathing." This is patient's 3rd hospitalization in psychiatry, and he has had over 20+ ED visits since July 2019. Patient had a hospitalization in February 2020 (02/29/20-03/02/20) for Acute Encephalopathy with an admission to psychiatry 03/02/20-03/07/20. He was recently admitted and discharged from this facility from 04/09/20-05/02/20. Patient appears to have poor recall of the events leading up to this hospitalization, he does report depression with suicidal ideation but cannot clarify his stressors. According to his , he had only one solid day of good cognitive functioning and has declined since his discharge. VITAL SIGNS: See below. CURRENT MEDICATIONS: See below. MENTAL STATUS EXAMINATION: Patient is a 55 -year-old , Retired/Disabled, Domiciled, , male, who was brought to reports that he was depressed and had poor sleep and was suicidal c/o being "filled with air" and stated he was going to use the scissors to "deflate himself." . Speech: Is impoverished, minimal, low tone and volume, slow rate Language skills are intact Thought processes including: linear today during interview Thought content: denies depression and anxiety, denies suicidal thinking Abstract reasoning, and computation: impaired Description of associations: denies Description of abnormal or psychotic thoughts: denies Judgment: impaired Insight: impaired Orientation: alert Recent and remote memory: impaired Attention span and concentration: poor Language: minimal Fund of knowledge: below average at times Mood: denies depressed Affect: Flat DIAGNOSES: Major Depressive Disorder with psychotic features HTN Generalized anxiety disorder ASSESSMENT: Patient found in his room, he denies depression and anxiety. He reports that he is doing well. Per staff he is quite disheveled, apathetic. He is very isolative and withdrawn, staff reports that he is dismissive but patient is more disconnected and apathetic than dismissive. He mildly confabulates about his activities. He has not been participating in the milieu but yet reports that he is engaged on the unit. Oftentimes he is difficult to engage in conversation and has minimal responses. He demonstrates failure to meet the minimal participation on the unit, but yet reports he is not depressed and is visible on the unit today. He often needs to be reminded to take his medications, and to come out to the eating areas to eat. He has been eating minimally the past few days. He shows very little improvement in mood and affect MANAGEMENT PLAN: Continue all medications, will discharge when stable. TIME SPENT: 25 minutes. Vital Signs Vital Signs Date Time Temp Pulse Resp B/P (MAP) Pulse Ox O2 Delivery O2 Flow Rate FiO2 05/31/20 11:46 89 123/90 05/31/20 08:42 Room Air 05/31/20 06:45 97.9 16 99 Current Medications Current Medications Medications (Trade) Dose Ordered Sig/Shanell Route PRN Reason Start Time Stop Time Status Last Admin Dose Admin Al Hydrox/Mg Hydrox/Simethicone (Mylanta) 30 ml Q4HP PRN PO HEARTBURN/INDIGESTION 05/23/20 19:15 05/29/20 19:38 Albuterol Sulfate (Proventil, Ventolin Hfa) 2 puff QID PRN INH SOB/WHEEZING 05/23/20 19:15 05/28/20 15:16 Amlodipine Besylate (Norvasc) 5 mg DAILY PO 05/24/20 17:40 05/31/20 09:42 Aspirin (Ecotrin) 81 mg DAILY PO 05/24/20 09:00 05/31/20 11:46 Cyanocobalamin (Vitamin B12 Injection) 1,000 mcg Q7D@ [place] 05/27/20 09:00 05/27/20 15:28 Fluoxetine HCl (PROzac) 10 mg DAILY PO 05/24/20 09:00 05/31/20 09:41 Home Med (Med Rec Complete!) ASDIRECTED XX 05/23/20 16:30 05/23/20 16:30 DC Ibuprofen (Advil) 400 mg Q6HP PRN PO PAIN 05/23/20 19:15 05/30/20 20:05 Magnesium Hydroxide (Milk Of Magnesia) 30 ml DAILYPRN PRN PO CONSTIPATION 05/23/20 19:15 Multivitamins (Theragram-M) 1 tab DAILY PO 05/26/20 12:00 05/28/20 09:02 Nicotine (Nicoderm Cq 14mg) 1 patch DAILY TD 05/24/20 09:00 05/28/20 09:02 Olanzapine (ZyPREXA ZYDIS) 5 mg Q6HP PRN PO ANXIETY/AGITATION 05/24/20 00:40 05/26/20 22:17 Olanzapine (ZyPREXA ZYDIS) 10 mg STAT STAT PO 05/24/20 00:37 05/24/20 00:39 DC 05/24/20 00:48 Omeprazole (PriLOSEC) 40 mg DAILY PO 05/25/20 09:00 05/28/20 09:03 Propranolol HCl (Inderal) 20 mg TID PO 05/23/20 21:00 05/31/20 11:46 Sucralfate (Carafate Suspension) 1 gm AC PO 05/24/20 07:30 05/31/20 11:46 Sucralfate (Carafate) 1 gm AC PO 05/23/20 17:30 05/24/20 07:41 DC 05/23/20 19:15 Trazodone HCl (Desyrel) 50 mg QHSP PRN PO INSOMNIA 05/23/20 19:15 05/30/20 20:03 Valsartan (Diovan) 160 mg DAILY PO 05/25/20 09:00 05/28/20 09:03 Allergies Coded Allergies: Penicillins (Verified Allergy, Intermediate, HIVES, 04/09/20) ANTONY ZALDIVAR EKG/ECG TECHNICIAN May 31, 2020 16:35
[2020-05-31 18:00] VITALS: BP 115/85
[2020-06-01 06:36] VITALS: BP 113/64
[2020-06-01] MEDS: SUCRALFATE SUSP 1GM/10ML UD PO SCH ×3 (06:44→17:30)
[2020-06-01] MEDS: NICOTINE 14 MG/24 HR TRANSDERMAL TD SCH (08:23)
[2020-06-01] MEDS: PROPRANOLOL 20 MG TAB PO SCH ×3 (08:27→20:18)
[2020-06-01] MEDS: VALSARTAN 80 MG TAB (DIOVAN) PO SCH (08:28)
[2020-06-01] MEDS: MULTIVITAMINS/MINERALS THERAP 1 TAB PO SCH (08:28)
[2020-06-01] MEDS: amLODIPine 5 MG TAB PO SCH (08:28)
[2020-06-01] MEDS: ASPIRIN 81MG ENTERIC TABLET PO SCH (08:29)
[2020-06-01] MEDS: OMEPRAZOLE 20 MG CAP PO SCH (08:29)
[2020-06-01] MEDS ORDERED: FLUoxetine 20 MG CAP PO SCH (09:00)
--- NOTE | 2020-06-01 15:28 | MHIPNPDOC ---
[facility] Progress Note Progress Note DATE OF SERVICE: 06/01/20 HISTORY: Patient is a 55 -year-old , Retired/Disabled, Domiciled, , male, who was brought to reports that he was depressed and had poor sleep and was suicidal. "I took a knife to my throat because I was not getting enough sleep." When asked again why he was brought to the hospital patient states "I had difficulty breathing." This is patient's 3rd hospitalization in psychiatry, and he has had over 20+ ED visits since July 2019. Patient had a hospitalization in February 2020 (02/29/20-03/02/20) for Acute Encephalopathy with an admission to psychiatry 03/02/20-03/07/20. He was recently admitted and discharged from this facility from 04/09/20-05/02/20. Patient appears to have poor recall of the events leading up to this hospitalization, he does report depression with suicidal ideation but cannot clarify his stressors. According to his , he had only one solid day of good cognitive functioning and has declined since his discharge. VITAL SIGNS: See below. CURRENT MEDICATIONS: See below. MENTAL STATUS EXAMINATION: Patient is a 55 -year-old , Retired/Disabled, Domiciled, , male, who was brought to reports that he was depressed and had poor sleep and was suicidal c/o being "filled with air" and stated he was going to use the scissors to "deflate himself." . Speech: Is impoverished, minimal, low tone and volume, slow rate Language skills are intact Thought processes including:Linear, reality based. Thought content: denies depression and anxiety,( Appears very depressed) denies suicidal thinking Abstract reasoning, and computation: impaired Description of associations: denies Description of abnormal or psychotic thoughts: denies Judgment: impaired Insight: impaired Orientation: alert Recent and remote memory: impaired Attention span and concentration: poor Language: minimal Fund of knowledge: below average at times Mood: denies depressed Affect: Flat DIAGNOSES: Major Depressive Disorder with psychotic features HTN Generalized anxiety disorder ASSESSMENT: Patient seen today in his room. Patient is alert and oriented to self, place,time and situation . He is able to converse but declines to have a conversation stating "I'm fine, i just don't want to talk". He declined to leave his bed to come meet with us in the interview room. He appears disconnected, disengaged, apathetic. He denies being depressed but appears very depressed. Denies SI or hallucination. Encouraged him to eat and interact with staff and peers. Dr. Holt was consulted about this patient's status. He recommended trying Ritalin and stopping his other psychiatric medications. Spoke to patient's on the telephone and reported patient's presentation today. she said - " that is what i have been dealing with for a year". Asked to elaborate, she says that the patient's behavior changed about a year ago shortly after a rotator cuff surgery. She explains that after the surgery, the patient was not eating well, had poor attention to his ADLs, did not attend to his is hy giene, decreased, was sleeping all the time, walking around and pacing the floors at night, getting loud, pulling out knives, wandering inn then wolfe at times and has had numerous suicidal ideations and gestures with knives. She says that she has been thinking that may be Jean-Paul needs a alf placement. We explained to her how challenging it may be for Jean-Paul to be accepted to a alf from a psychiatric unit. We notified her of the plan to to stop patient's other psychiatric medications and start Ritalin. MANAGEMENT PLAN: Continue all medications, will discharge when stable. TIME SPENT: 25 minutes. Vital Signs Vital Signs Date Time Temp Pulse Resp B/P (MAP) Pulse Ox O2 Delivery O2 Flow Rate FiO2 06/01/20 08:28 113/64 06/01/20 08:28 53 06/01/20 06:36 98.3 20 96 Room Air Current Medications Current Medications Medications (Trade) Dose Ordered Sig/Shanell Route PRN Reason Start Time Stop Time Status Last Admin Dose Admin Al Hydrox/Mg Hydrox/Simethicone (Mylanta) 30 ml Q4HP PRN PO HEARTBURN/INDIGESTION 05/23/20 19:15 05/29/20 19:38 Albuterol Sulfate (Proventil, Ventolin Hfa) 2 puff QID PRN INH SOB/WHEEZING 05/23/20 19:15 05/28/20 15:16 Amlodipine Besylate (Norvasc) 5 mg DAILY PO 05/24/20 17:40 06/01/20 08:28 Aspirin (Ecotrin) 81 mg DAILY PO 05/24/20 09:00 06/01/20 08:29 Cyanocobalamin (Vitamin B12 Injection) 1,000 mcg Q7D@09 SC 05/27/20 09:00 05/27/20 15:28 Fluoxetine HCl (PROzac) 10 mg DAILY PO 05/24/20 09:00 05/31/20 16:48 DC 05/31/20 09:41 Fluoxetine HCl (PROzac) 20 mg DAILY PO 06/01/20 09:00 06/01/20 08:28 Home Med (Med Rec Complete!) ASDIRECTED XX 05/23/20 16:30 05/23/20 16:30 DC Ibuprofen (Advil) 400 mg Q6HP PRN PO PAIN 05/23/20 19:15 05/30/20 20:05 Magnesium Hydroxide (Milk Of Magnesia) 30 ml DAILYPRN PRN PO CONSTIPATION 05/23/20 19:15 Multivitamins (Theragram-M) 1 tab DAILY PO 05/26/20 12:00 06/01/20 08:28 Nicotine (Nicoderm Cq 14mg) 1 patch DAILY TD 05/24/20 09:00 05/28/20 09:02 Olanzapine (ZyPREXA ZYDIS) 5 mg Q6HP PRN PO ANXIETY/AGITATION 05/24/20 00:40 05/26/20 22:17 Olanzapine (ZyPREXA ZYDIS) 10 mg STAT STAT PO 05/24/20 00:37 05/24/20 00:39 DC 05/24/20 00:48 Omeprazole (PriLOSEC) 40 mg DAILY PO 05/25/20 09:00 06/01/20 08:29 Propranolol HCl (Inderal) 20 mg TID PO 05/23/20 21:00 06/01/20 08:27 Sucralfate (Carafate Suspension) 1 gm AC PO 05/24/20 07:30 06/01/20 06:44 Sucralfate (Carafate) 1 gm AC PO 05/23/20 17:30 05/24/20 07:41 DC 05/23/20 19:15 Trazodone HCl (Desyrel) 50 mg QHSP PRN PO INSOMNIA 05/23/20 19:15 05/30/20 20:03 Valsartan (Diovan) 160 mg DAILY PO 05/25/20 09:00 06/01/20 08:28 Allergies Coded Allergies: Penicillins (Verified Allergy, Intermediate, HIVES, 04/09/20) ANTONY ZALDIVAR NP Jun 01, 2020 15:28
[2020-06-01] MEDS ORDERED: TUBERCULIN PPD 5 UNITS/0.1 ML ID ONE (16:00)
[2020-06-01 17:45] VITALS: BP 113/69
[2020-06-01] MEDS: **PENDING PPD ENTRY XX SCH (17:47)
[2020-06-01] MEDS: traZODone 50 MG TAB PO PRN (20:17)
[2020-06-02] MEDS: SUCRALFATE SUSP 1GM/10ML UD PO SCH ×4 (06:41→17:15)
[2020-06-02 06:42] VITALS: BP 110/73
[2020-06-02] MEDS: **PENDING PPD ENTRY XX SCH (09:00)
[2020-06-02] MEDS: MULTIVITAMINS/MINERALS THERAP 1 TAB PO SCH (10:30)
[2020-06-02] MEDS: VALSARTAN 80 MG TAB (DIOVAN) PO SCH (10:30)
[2020-06-02] MEDS: METHYLPHENIDATE 5 MG TAB PO SCH (10:30)
[2020-06-02] MEDS: PROPRANOLOL 20 MG TAB PO SCH ×3 (10:30→20:19)
[2020-06-02] MEDS: amLODIPine 5 MG TAB PO SCH (10:30)
[2020-06-02] MEDS: ASPIRIN 81MG ENTERIC TABLET PO SCH (10:30)
[2020-06-02] MEDS: NICOTINE 14 MG/24 HR TRANSDERMAL TD SCH (10:30)
[2020-06-02] MEDS: OMEPRAZOLE 20 MG CAP PO SCH (10:30)
--- NOTE | 2020-06-02 16:59 | MHIPNPDOC ---
[facility] Progress Note Progress Note DATE OF SERVICE: 06/02/20 HISTORY: Patient is a 55 -year-old , Retired/Disabled, Domiciled, , male, who was brought to reports that he was depressed and had poor sleep and was suicidal. "I took a knife to my throat because I was not getting enough sleep." When asked again why he was brought to the hospital patient states "I had difficulty breathing." This is patient's 3rd hospitalization in psychiatry, and he has had over 20+ ED visits since July 2019. Patient had a hospitalization in February 2020 (02/29/20-03/02/20) for Acute Encephalopathy with an admission to psychiatry 03/02/20-03/07/20. He was recently admitted and discharged from this facility from 04/09/20-05/02/20. Patient appears to have poor recall of the events leading up to this hospitalization, he does report depression with suicidal ideation but cannot clarify his stressors. According to his , he had only one solid day of good cognitive functioning and has declined since his discharge. VITAL SIGNS: See below. CURRENT MEDICATIONS: See below. MENTAL STATUS EXAMINATION: Patient is a 55 -year-old , Retired/Disabled, Domiciled, , male, who was brought to reports that he was depressed and had poor sleep and was suicidal c/o being "filled with air" and stated he was going to use the scissors to "deflate himself." . He is unkept, dishevelled. He has been asked to attend to his ADL but refuses. Speech: Repetitive statements " I want to go home, I am going home, I don't want to talk to you" , minimal, normal tone, volume and rate Language skills are intact Thought processes including:Linear, reality based. Thought content: denies depression and anxiety,( Appears very depressed) denies suicidal thinking Abstract reasoning, and computation: impaired Description of associations: denies Description of abnormal or psychotic thoughts: denies Judgment: impaired Insight: impaired Orientation: alert Recent and remote memory: impaired Attention span and concentration: poor Language: minimal Fund of knowledge: below average at times Mood: denies being depressed Affect: Flat DIAGNOSES: Major Depressive Disorder with psychotic features HTN Generalized anxiety disorder ASSESSMENT: Patient seen this morning walking around the unit. Attempted to engage patient in conversation but he says " I want to go home". He is irritable and refusing to engage further. He reportedly refused his breakfast. He has had poor intake for several days. He is unkempt, dishevelled. Asked to attend to his ADL's, he says " I need my clothes, I want to go home". MANAGEMENT PLAN: Continue all medications, will discharge when stable. TIME SPENT: 25 minutes. Vital Signs Vital Signs Date Time Temp Pulse Resp B/P (MAP) Pulse Ox O2 Delivery O2 Flow Rate FiO2 06/02/20 06:42 98.4 51 18 110/73 (85) 97 Room Air Current Medications Current Medications Medications (Trade) Dose Ordered Sig/Shanell Route PRN Reason Start Time Stop Time Status Last Admin Dose Admin Al Hydrox/Mg Hydrox/Simethicone (Mylanta) 30 ml Q4HP PRN PO HEARTBURN/INDIGESTION 05/23/20 19:15 05/29/20 19:38 Albuterol Sulfate (Proventil, Ventolin Hfa) 2 puff QID PRN INH SOB/WHEEZING 05/23/20 19:15 05/28/20 15:16 Amlodipine Besylate (Norvasc) 5 mg DAILY PO 05/24/20 17:40 06/01/20 08:28 Aspirin (Ecotrin) 81 mg DAILY PO 05/24/20 09:00 06/01/20 08:29 Cyanocobalamin (Vitamin B12 Injection) 1,000 mcg Q7D@09 [place] 05/27/20 09:00 05/27/20 15:28 Fluoxetine HCl (PROzac) 10 mg DAILY PO 05/24/20 09:00 05/31/20 16:48 DC 05/31/20 09:41 Fluoxetine HCl (PROzac) 20 mg DAILY PO 06/01/20 09:00 06/01/20 15:33 DC 06/01/20 08:28 Home Med (Med Rec Complete!) ASDIRECTED XX 05/23/20 16:30 05/23/20 16:30 DC Ibuprofen (Advil) 400 mg Q6HP PRN PO PAIN 05/23/20 19:15 05/30/20 20:05 Magnesium Hydroxide (Milk Of Magnesia) 30 ml DAILYPRN PRN PO CONSTIPATION 05/23/20 19:15 Methylphenidate HCl (Ritalin) 5 mg QAM PO 06/02/20 09:00 Multivitamins (Theragram-M) 1 tab DAILY PO 05/26/20 12:00 06/01/20 08:28 Nicotine (Nicoderm Cq 14mg) 1 patch DAILY TD 05/24/20 09:00 05/28/20 09:02 Non-Formulary Medication ( See Comment Field Below ) SEE LABEL COMMENTS DAILY XX 06/01/20 09:00 Olanzapine (ZyPREXA ZYDIS) 5 mg Q6HP PRN PO ANXIETY/AGITATION 05/24/20 00:40 06/01/20 15:33 DC 05/26/20 22:17 Olanzapine (ZyPREXA ZYDIS) 10 mg STAT STAT PO 05/24/20 00:37 05/24/20 00:39 DC 05/24/20 00:48 Omeprazole (PriLOSEC) 40 mg DAILY PO 05/25/20 09:00 06/01/20 08:29 Propranolol HCl (Inderal) 20 mg TID PO 05/23/20 21:00 06/01/20 20:18 Sucralfate (Carafate Suspension) 1 gm AC PO 05/24/20 07:30 06/01/20 06:44 Sucralfate (Carafate) 1 gm AC PO 05/23/20 17:30 05/24/20 07:41 DC 05/23/20 19:15 Trazodone HCl (Desyrel) 50 mg QHSP PRN PO INSOMNIA 05/23/20 19:15 06/01/20 20:17 Valsartan (Diovan) 160 mg DAILY PO 05/25/20 09:00 06/01/20 08:28 Allergies Coded Allergies: Penicillins (Verified Allergy, Intermediate, HIVES, 04/09/20) ANTONY ZALDIVAR SHEAR TENDER Jun 02, 2020 09:14
[2020-06-02 18:43] VITALS: BP 147/93
[2020-06-03] MEDS: traZODone 50 MG TAB PO PRN (00:13)
[2020-06-03 06:12] VITALS: BP 109/59
[2020-06-03] MEDS: SUCRALFATE SUSP 1GM/10ML UD PO SCH ×3 (07:01→16:52)
[2020-06-03] MEDS: PROPRANOLOL 20 MG TAB PO SCH ×3 (08:41→21:00)
[2020-06-03] MEDS: OMEPRAZOLE 20 MG CAP PO SCH (08:42)
[2020-06-03] MEDS: VALSARTAN 80 MG TAB (DIOVAN) PO SCH (08:42)
[2020-06-03] MEDS: MULTIVITAMINS/MINERALS THERAP 1 TAB PO SCH (08:42)
[2020-06-03] MEDS: ASPIRIN 81MG ENTERIC TABLET PO SCH (08:42)
[2020-06-03] MEDS: METHYLPHENIDATE 5 MG TAB PO SCH (08:42)
[2020-06-03] MEDS: amLODIPine 5 MG TAB PO SCH (08:43)
[2020-06-03] MEDS: NICOTINE 14 MG/24 HR TRANSDERMAL TD SCH (08:45)
--- NOTE | 2020-06-03 09:24 | MHIPNPDOC ---
[facility] Progress Note Progress Note DATE OF SERVICE: 06/03/20 HISTORY: Patient is a 55 -year-old , Retired/Disabled, Domiciled, , male, who was brought to reports that he was depressed and had poor sleep and was suicidal. "I took a knife to my throat because I was not getting enough sleep." When asked again why he was brought to the hospital patient states "I had difficulty breathing." This is patient's 3rd hospitalization in psychiatry, and he has had over 20+ ED visits since July 2019. Patient had a hospitalization in February 2020 (02/29/20-03/02/20) for Acute Encephalopathy with an admission to psychiatry 03/02/20-03/07/20. He was recently admitted and discharged from this facility from 04/09/20-05/02/20. Patient appears to have poor recall of the events leading up to this hospitalization, he does report depression with suicidal ideation but cannot clarify his stressors. According to his , he had only one solid day of good cognitive functioning and has declined since his discharge. VITAL SIGNS: See below. CURRENT MEDICATIONS: See below. MENTAL STATUS EXAMINATION: Patient is a 55 -year-old , Retired/Disabled, Domiciled, , male, who was brought to reports that he was depressed and had poor sleep and was suicidal c/o being "filled with air" and stated he was going to use the scissors to "deflate himself." . Today patient has mildly improved appearance, he shaved but he continues to wear the same clothes that he has been wearing for several days. Speech: Repetitive statements " You promised me that I could go home! I want to go home, I am going home, Language skills are intact Thought processes including:Linear, reality based. Thought content: denies depression and anxiety,( Appears very depressed) denies suicidal thinking Abstract reasoning, and computation: impaired Description of associations: denies Description of abnormal or psychotic thoughts: denies Judgment: impaired Insight: impaired Orientation: alert Recent and remote memory: impaired Attention span and concentration: poor Language: minimal Fund of knowledge: below average at times Mood: denies being depressed Affect: Flat DIAGNOSES: Major Depressive Disorder with psychotic features HTN Generalized anxiety disorder ASSESSMENT: Patient agreeable to interview but states "You promised me that I was going to go home today, I want to go home." When asked why he was hospitalized he stated "I tried to kill myself, but I am ok now." Patient has not attended to his ADLs for several days but today he had shaved, patient did shower but he has not changed his clothes in several days after much encouragement to shower, change his clothes and shave. When we reinforced with the patient that his has concerns about his behaviors over the past year of delusions, paranoia, and suicidal thoughts and gestures he states "It hasn't been that long." Patient's is not accepting him home at this time as she reported two days ago that she had been dealing with his psychotic behaviors for a long time with 3 admissions for these behaviors. Per staff, patient is very irritable today but has been out of his room most of the day and not constantly sleeping as he was earlier in the week. He continues to believe that he is being discharged today despite the fact that he had not improved during this hospitalization. It was explained to the patient that he would be transferred to [facility] MANAGEMENT PLAN: Continue all medications, will discharge when stable. Two days ago, Prozac was discontinued and patient given a small dose of Ritalin because he continued to be withdrawn, isolative, had poor nutritional intake, was not caring for his ADLS, was in bed most of the day every day. Treatment team feels that this patient would benefit from a longer hospitalization. Transfer to [facility] TIME SPENT: 25 minutes. Vital Signs Vital Signs Date Time Temp Pulse Resp B/P (MAP) Pulse Ox O2 Delivery O2 Flow Rate FiO2 06/03/20 08:43 60 109/59 06/03/20 06:12 97.0 16 97 Room Air Current Medications Current Medications Medications (Trade) Dose Ordered Sig/Shanell Route PRN Reason Start Time Stop Time Status Last Admin Dose Admin Al Hydrox/Mg Hydrox/Simethicone (Mylanta) 30 ml Q4HP PRN PO HEARTBURN/INDIGESTION 05/23/20 19:15 05/29/20 19:38 Albuterol Sulfate (Proventil, Ventolin Hfa) 2 puff QID PRN INH SOB/WHEEZING 05/23/20 19:15 05/28/20 15:16 Amlodipine Besylate (Norvasc) 5 mg DAILY PO 05/24/20 17:40 06/03/20 08:43 Aspirin (Ecotrin) 81 mg DAILY PO 05/24/20 09:00 06/03/20 08:42 Cyanocobalamin (Vitamin B12 Injection) 1,000 mcg Q7D@09 SC 05/27/20 09:00 05/27/20 15:28 Fluoxetine HCl (PROzac) 10 mg DAILY PO 05/24/20 09:00 05/31/20 16:48 DC 05/31/20 09:41 Fluoxetine HCl (PROzac) 20 mg DAILY PO 06/01/20 09:00 06/01/20 15:33 DC 06/01/20 08:28 Home Med (Med Rec Complete!) ASDIRECTED XX 05/23/20 16:30 05/23/20 16:30 DC Ibuprofen (Advil) 400 mg Q6HP PRN PO PAIN 05/23/20 19:15 05/30/20 20:05 Magnesium Hydroxide (Milk Of Magnesia) 30 ml DAILYPRN PRN PO CONSTIPATION 05/23/20 19:15 Methylphenidate HCl (Ritalin) 5 mg QAM PO 06/02/20 09:00 06/03/20 08:42 Multivitamins (Theragram-M) 1 tab DAILY PO 05/26/20 12:00 06/03/20 08:42 Nicotine (Nicoderm Cq 14mg) 1 patch DAILY TD 05/24/20 09:00 05/28/20 09:02 Non-Formulary Medication ( See Comment Field Below ) SEE LABEL COMMENTS DAILY XX 06/01/20 09:00 Olanzapine (ZyPREXA ZYDIS) 5 mg Q6HP PRN PO ANXIETY/AGITATION 05/24/20 00:40 06/01/20 15:33 DC 05/26/20 22:17 Olanzapine (ZyPREXA ZYDIS) 10 mg STAT STAT PO 05/24/20 00:37 05/24/20 00:39 DC 05/24/20 00:48 Omeprazole (PriLOSEC) 40 mg DAILY PO 05/25/20 09:00 06/03/20 08:42 Propranolol HCl (Inderal) 20 mg TID PO 05/23/20 21:00 06/03/20 08:41 Sucralfate (Carafate Suspension) 1 gm AC PO 05/24/20 07:30 06/02/20 17:15 Sucralfate (Carafate) 1 gm AC PO 05/23/20 17:30 05/24/20 07:41 DC 05/23/20 19:15 Trazodone HCl (Desyrel) 50 mg QHSP PRN PO INSOMNIA 05/23/20 19:15 06/03/20 00:13 Valsartan (Diovan) 160 mg DAILY PO 05/25/20 09:00 06/03/20 08:42 Allergies Coded Allergies: Penicillins (Verified Allergy, Intermediate, HIVES, 04/09/20) ANTONY ZALDIVAR [employer]SEMBLER [employer] Jun 03, 2020 09:24
[2020-06-03] MEDS: CYANOCOBALAMIN 1,000MCG/ML VIAL (J3420) SC SCH (10:00)
[2020-06-03 10:23] LABS: HEMATOCRIT 40.4 % (42.0-52.0); HEMOGLOBIN 13.6 g/dl (13.5-17.5); MEAN CORPUSCULAR HEMOGLOBIN 32.4 pg (27.0-33.0); MEAN CORPUSCULAR HGB CONC 33.7 g/dl (32.0-36.5); MEAN CORPUSCULAR VOLUME 96.2 fl (80.0-96.0); PLATELET COUNT, AUTOMATED 214 10^3/uL (150-450); WHITE BLOOD COUNT 5.2 10^3/uL (4.0-10.0)
[2020-06-03 10:45] LABS: BLOOD UREA NITROGEN 16 MG/DL (7-18); CARBON DIOXIDE LEVEL 30 MEQ/L (21-32); CHLORIDE LEVEL 103 MEQ/L (98-107); CREATININE FOR GFR 0.84 MG/DL (0.70-1.30); GLOMERULAR FILTRATION RATE > 60.0 (>56); GLUCOSE, FASTING 92 MG/DL (70-100); POTASSIUM SERUM 4.1 MEQ/L (3.5-5.1); SODIUM LEVEL 138 MEQ/L (136-145)
[2020-06-03 10:46] LABS: CALCIUM LEVEL 9.3 MG/DL (8.5-10.1)
[2020-06-03 10:48] LABS: ATYPICAL LYMPH 7 % (0-5); BASOPHILS 1 % (0-1); LYMPHOCYTES 22 % (16-44); MONOCYTES 8 % (0-5); NEUTROPHILS 62 % (28-66); PLATELET ESTIMATE NORMAL (NORMAL)
[2020-06-03] MEDS ORDERED: TUBERCULIN PPD 5 UNITS/0.1 ML ID ONE (11:00)
[2020-06-03] MEDS ORDERED: PPD DOCUMENTATION ENTRY MISC XX ONE (16:00)
[2020-06-03 17:34] VITALS: BP 141/92
[2020-06-04] MEDS: PROPRANOLOL 20 MG TAB PO SCH ×4 (02:08→19:54)
[2020-06-04] MEDS: traZODone 50 MG TAB PO PRN ×2 (02:08→23:21)
[2020-06-04 06:39] VITALS: BP 138/89
[2020-06-04] MEDS: SUCRALFATE SUSP 1GM/10ML UD PO SCH ×3 (07:30→16:49)
[2020-06-04] MEDS: NICOTINE 14 MG/24 HR TRANSDERMAL TD SCH (10:00)
[2020-06-04 10:49] VITALS: BP 118/82
[2020-06-04] MEDS: VALSARTAN 80 MG TAB (DIOVAN) PO SCH (10:49)
[2020-06-04] MEDS: ASPIRIN 81MG ENTERIC TABLET PO SCH (10:50)
[2020-06-04] MEDS: METHYLPHENIDATE 5 MG TAB PO SCH (10:50)
[2020-06-04] MEDS: OMEPRAZOLE 20 MG CAP PO SCH (10:50)
[2020-06-04] MEDS: MULTIVITAMINS/MINERALS THERAP 1 TAB PO SCH (10:50)
[2020-06-04] MEDS: amLODIPine 5 MG TAB PO SCH (10:50)
[2020-06-04 18:00] VITALS: BP 123/84
[2020-06-04] MEDS: OLANZapine ORAL DISINTEGRATING TAB 5MG PO ONE ×2 (23:35→23:44)
[2020-06-05 06:47] VITALS: BP 120/88
[2020-06-05] MEDS: SUCRALFATE SUSP 1GM/10ML UD PO SCH ×3 (07:30→16:58)
[2020-06-05] MEDS: VALSARTAN 80 MG TAB (DIOVAN) PO SCH (08:52)
[2020-06-05] MEDS: METHYLPHENIDATE 5 MG TAB PO SCH (08:52)
[2020-06-05] MEDS: PROPRANOLOL 20 MG TAB PO SCH ×3 (08:52→20:54)
[2020-06-05] MEDS: MULTIVITAMINS/MINERALS THERAP 1 TAB PO SCH (08:53)
[2020-06-05] MEDS: amLODIPine 5 MG TAB PO SCH (08:53)
[2020-06-05] MEDS: OMEPRAZOLE 20 MG CAP PO SCH (08:53)
[2020-06-05] MEDS: ASPIRIN 81MG ENTERIC TABLET PO SCH (08:53)
[2020-06-05] MEDS: NICOTINE 14 MG/24 HR TRANSDERMAL TD SCH (08:54)
[2020-06-05] MEDS ORDERED: PPD DOCUMENTATION ENTRY MISC XX ONE (11:00)
[2020-06-05 18:10] VITALS: BP 103/73
[2020-06-06 06:23] VITALS: BP 131/87
[2020-06-06] MEDS: SUCRALFATE SUSP 1GM/10ML UD PO SCH ×3 (06:35→16:47)
[2020-06-06] MEDS: ASPIRIN 81MG ENTERIC TABLET PO SCH (08:30)
[2020-06-06] MEDS: MULTIVITAMINS/MINERALS THERAP 1 TAB PO SCH (08:30)
[2020-06-06] MEDS: NICOTINE 14 MG/24 HR TRANSDERMAL TD SCH (08:30)
[2020-06-06] MEDS: OMEPRAZOLE 20 MG CAP PO SCH (08:30)
[2020-06-06] MEDS: amLODIPine 5 MG TAB PO SCH (08:31)
[2020-06-06] MEDS: PROPRANOLOL 20 MG TAB PO SCH ×3 (08:31→20:20)
[2020-06-06] MEDS: METHYLPHENIDATE 5 MG TAB PO SCH (08:31)
[2020-06-06] MEDS: VALSARTAN 80 MG TAB (DIOVAN) PO SCH (08:32)
--- NOTE | 2020-06-06 16:01 | MHIPNPDOC ---
[facility] Progress Note Progress Note DATE OF SERVICE: 06/06/20 HISTORY: Patient is a 55 -year-old , Retired/Disabled, Domiciled, , male, who was brought to reports that he was depressed and had poor sleep and was suicidal. "I took a knife to my throat because I was not getting enough sleep." When asked again why he was brought to the hospital patient states "I had difficulty breathing." This is patient's 3rd hospitalization in psychiatry, and he has had over 20+ ED visits since July 2019. Patient had a hospitalization in February 2020 (02/29/20-03/02/20) for Acute Encephalopathy with an admission to psychiatry 03/02/20-03/07/20. He was recently admitted and discharged from this facility from 04/09/20-05/02/20. Patient appears to have poor recall of the events leading up to this hospitalization, he does report depression with suicidal ideation but cannot clarify his stressors. According to his , he had only one solid day of good cognitive functioning and has declined since his discharge. VITAL SIGNS: See below. CURRENT MEDICATIONS: See below. MENTAL STATUS EXAMINATION: Patient is a 55 -year-old , Retired/Disabled, Domiciled, , male, who was brought to reports that he was depressed and had poor sleep and was suicidal c/o being "filled with air" and stated he was going to use the scissors to "deflate himself." . Today patient has mildly improved appearance, he shaved but he continues to wear the same clothes that he has been wearing for several days. Speech: Low volume and tone, impoverished Language skills are intact Thought processes including:Linear,mildly scattered at times. Thought content: denies depression and anxiety,( Appears very depressed) denies suicidal thinking Abstract reasoning, and computation: impaired Description of associations: denies Description of abnormal or psychotic thoughts: denies Judgment: impaired Insight: impaired Orientation: alert Recent and remote memory: impaired Attention span and concentration: poor Language: minimal Fund of knowledge: below average at times Mood: denies being depressed but appears to be depressed Affect: Flat DIAGNOSES: Major Depressive Disorder with psychotic features HTN Generalized anxiety disorder ASSESSMENT: Attempted to meet with the patient several times today. Approached him in the hallway, he is dishevelled, and not attending to his ADLs, he is very dismissive, refusing to go to the office or engage in conversation. He is observed continuously walking the hallway. Per staff notes, over the weekend, he was attempting to grab something from a peer out of their hand and he also tried to grab papers from another nurse's hand that he also believed were his. .He was down by the doors, peering out. He has also been observed peering into various windows on the unit. He refused his medications one day over the weekend. . MANAGEMENT PLAN: Continue all medications, will discharge when stable. Two days ago, Prozac was discontinued and patient given a small dose of Ritalin because he continued to be withdrawn, isolative, had poor nutritional intake, was not caring for his ADLS, was in bed most of the day every day. Treatment team feels that this patient would benefit from a longer hospitalization. Transfer to [facility] TIME SPENT: 25 minutes. Vital Signs Vital Signs Date Time Temp Pulse Resp B/P (MAP) Pulse Ox O2 Delivery O2 Flow Rate FiO2 06/06/20 08:32 124/78 06/06/20 08:31 81 06/06/20 06:23 97.2 18 99 Room Air Current Medications Current Medications Medications (Trade) Dose Ordered Sig/Shanell Route PRN Reason Start Time Stop Time Status Last Admin Dose Admin Al Hydrox/Mg Hydrox/Simethicone (Mylanta) 30 ml Q4HP PRN PO HEARTBURN/INDIGESTION 05/23/20 19:15 05/29/20 19:38 Albuterol Sulfate (Proventil, Ventolin Hfa) 2 puff QID PRN INH SOB/WHEEZING 05/23/20 19:15 05/28/20 15:16 Amlodipine Besylate (Norvasc) 5 mg DAILY PO 05/24/20 17:40 06/06/20 08:31 Aspirin (Ecotrin) 81 mg DAILY PO 05/24/20 09:00 06/06/20 08:30 Cyanocobalamin (Vitamin B12 Injection) 1,000 mcg Q7D@09 SC 05/27/20 09:00 06/03/20 10:00 Fluoxetine HCl (PROzac) 10 mg DAILY PO 05/24/20 09:00 05/31/20 16:48 DC 05/31/20 09:41 Fluoxetine HCl (PROzac) 20 mg DAILY PO 06/01/20 09:00 06/01/20 15:33 DC 06/01/20 08:28 Home Med (Med Rec Complete!) ASDIRECTED XX 05/23/20 16:30 05/23/20 16:30 DC Ibuprofen (Advil) 400 mg Q6HP PRN PO PAIN 05/23/20 19:15 05/30/20 20:05 Magnesium Hydroxide (Milk Of Magnesia) 30 ml DAILYPRN PRN PO CONSTIPATION 05/23/20 19:15 Methylphenidate HCl (Ritalin) 5 mg QAM PO 06/02/20 09:00 06/06/20 08:31 Multivitamins (Theragram-M) 1 tab DAILY PO 05/26/20 12:00 06/06/20 08:30 Nicotine (Nicoderm Cq 14mg) 1 patch DAILY TD 05/24/20 09:00 06/06/20 08:30 Non-Formulary Medication ( See Comment Field Below ) SEE LABEL COMMENTS DAILY XX 06/01/20 09:00 06/03/20 10:07 DC Olanzapine (ZyPREXA ZYDIS) 5 mg Q6HP PRN PO ANXIETY/AGITATION 05/24/20 00:40 06/01/20 15:33 DC 05/26/20 22:17 Olanzapine (ZyPREXA ZYDIS) 10 mg STAT STAT PO 05/24/20 00:37 05/24/20 00:39 DC 05/24/20 00:48 Omeprazole (PriLOSEC) 40 mg DAILY PO 05/25/20 09:00 06/06/20 08:30 Propranolol HCl (Inderal) 20 mg TID PO 05/23/20 21:00 06/06/20 08:31 Sucralfate (Carafate Suspension) 1 gm AC PO 05/24/20 07:30 06/06/20 06:35 Sucralfate (Carafate) 1 gm AC PO 05/23/20 17:30 05/24/20 07:41 DC 05/23/20 19:15 Trazodone HCl (Desyrel) 50 mg QHSP PRN PO INSOMNIA 05/23/20 19:15 06/04/20 23:21 Valsartan (Diovan) 160 mg DAILY PO 05/25/20 09:00 06/06/20 08:32 Allergies Coded Allergies: Penicillins (Verified Allergy, Intermediate, HIVES, 04/09/20) ANTONY ZALDIVAR DRAFTER ASSISTANT Jun 06, 2020 11:57
[2020-06-06] MEDS ORDERED: OLANZapine ORAL DISINTEGRATING TAB 5MG PO STA (17:32)
--- NOTE | 2020-06-06 17:43 | IPNPDOC ---
Text Note Date of Service The patient was seen on 06/06/20. NOTE Hospitalist Progress Note Subjective: After speaking with the nurses on the [facility] floor it appears that he has been having multiple episodes of low blood pressure. Today he was found to have a blood pressure of 90/56 with bradycardia, therefore we are asked to come and evaluate the patient once again. The patient is suffering from psychosis, therefore review of systems is difficult to obtain, however the only discomfort he seems to be experiencing is pain in his lips. He is however awake and alert, he is able to stand up and walk around without getting lightheaded, therefore he does not appear to be orthostatic at this time. Objective: General: Awake, alert. Not in any acute distress. HEENT: Head normocephalic, atraumatic, sclera are nonicteric. Hearing is grossly intact to conversation. Respiratory: Clear to auscultation bilaterally with no wheezes, rales, or rhonchi. Cardiovascular: Regular rate and rhythm, with no rubs, gallops, or murmur. Abdomen: Soft, nontender, nondistended, no hepatosplenomegaly appreciated. Bowel sounds present. Extremities: No evidence of clubbing or cyanosis. Assessment: Hypotension -Patient is currently receiving amlodipine 5 mg daily, valsartan 160 mg daily, and propranolol 20 mg 3 times a day. Often, one of these medications has not been administered during his stay due to low blood pressures. Concern for constipation -Apparently has also been complaining of abdominal discomfort, and the nursing team is concerned that he is not having regular bowel movements. Plan -Discontinue amlodipine entirely at this time -Reduce dose of propranolol to just twice a day (20mg BID) -Continue valsartan 160 daily -Start Senokot 1 tablet by mouth daily to help keep regular bowel movements Otherwise, continue the remainder of his medications per recommendations from the psychiatric team Please call the hospitalist team again if any more issues with his blood pressure (or other medical issues) occurs. Thank you so very much. VS,Fishbone, I+O VS, Fishbone, I+O Vital Signs Date Time Temp Pulse Resp B/P (MAP) Pulse Ox O2 Delivery O2 Flow Rate FiO2 06/06/20 16:00 62 98/60 06/06/20 06:23 97.2 18 99 Room Air GIFTY RAMOS DO Jun 06, 2020 17:43
[2020-06-06 18:34] VITALS: BP 90/52
[2020-06-07 06:32] VITALS: BP 106/63
[2020-06-07] MEDS: SUCRALFATE SUSP 1GM/10ML UD PO SCH ×3 (06:47→17:30)
[2020-06-07] MEDS: NICOTINE 14 MG/24 HR TRANSDERMAL TD SCH ×3 (09:00→09:38)
[2020-06-07] MEDS: SENNA 8.6 MG TAB (SENOKOT) PO SCH (09:30)
[2020-06-07] MEDS: MULTIVITAMINS/MINERALS THERAP 1 TAB PO SCH (09:30)
[2020-06-07] MEDS: VALSARTAN 80 MG TAB (DIOVAN) PO SCH (09:30)
[2020-06-07] MEDS: FLUoxetine 10 MG CAP PO SCH (09:30)
[2020-06-07] MEDS: ASPIRIN 81MG ENTERIC TABLET PO SCH (09:30)
[2020-06-07] MEDS: OMEPRAZOLE 20 MG CAP PO SCH (09:30)
[2020-06-07] MEDS: PROPRANOLOL 20 MG TAB PO SCH ×2 (09:30→21:00)
--- NOTE | 2020-06-07 11:38 | MHIPNPDOC ---
[facility] Progress Note Progress Note DATE OF SERVICE: 06/07/20 HISTORY: HISTORY: Patient is a 55 -year-old , Retired/Disabled, Domiciled, , male, who was brought to reports that he was depressed and had poor sleep and was suicidal. "I took a knife to my throat because I was not getting enough sleep." When asked again why he was brought to the hospital patient states "I had difficulty breathing." This is patient's 3rd hospitalization in psychiatry, and he has had over 20+ ED visits since July 2019. Patient had a hospitalization in February 2020 (02/29/20-03/02/20) for Acute Encephalopathy with an admission to psychiatry 03/02/20-03/07/20. He was recently admitted and discharged from this facility from 04/09/20-05/02/20. Patient appears to have poor recall of the events leading up to this hospitalization, he does report depression with suicidal ideation but cannot clarify his stressors. According to his , he had only one solid day of good cognitive functioning and has declined since his discharge. VITAL SIGNS: See below. CURRENT MEDICATIONS: See below. MENTAL STATUS EXAMINATION: Patient is a 55 -year-old , Retired/Disabled, Domiciled, , male, who was brought to reports that he was depressed and had poor sleep and was suicidal. Today patient is disheveled in appearance, he refuses to change his clothing. His hygiene and grooming is unkempt. Speech: Low volume and tone, with paucity Language skills are intact Thought processes including: Disorganized, scattered Thought content: denies depression and anxiety( Appears very depressed) denies suicidal thinking Abstract reasoning, and computation: impaired Description of associations: denies Description of abnormal or psychotic thoughts: denies Judgment: impaired Insight: impaired Orientation: alert Recent and remote memory: impaired Attention span and concentration: poor Language: minimal Fund of knowledge: below average at times Mood: irritable, hostile Affect: Flat DIAGNOSES: Major Depressive Disorder with psychotic features HTN Generalized anxiety disorder ASSESSMENT: Attempted to meet with patient today, while he is out in the hallway walking. Patient stated "No, I can't meet with you today, I don't feel good. I am having difficulty breathing" When I asked about his physical complaints, patient stated, "I don't feel good because the nurse was trying to put an aspirin in my nose." Attempted to engage the patient and he got into the bed and refused to speak with provider. States "I don't want to talk, leave me alone." @ around 1520, attempted to engage patient in conversation again, but he refused to engage. Makes poor eye contact. MANAGEMENT PLAN: Discontinue Ritalin, start Prozac 10 mg and Seroquel 25 mg HS - consulted with Dr. Holt who recommends the discontinuation of Ritaline, order Prozac and low dose of Seroquel at HS TIME SPENT: 25 minutes. Vital Signs Vital Signs Date Time Temp Pulse Resp B/P (MAP) Pulse Ox O2 Delivery O2 Flow Rate FiO2 06/07/20 06:32 98.7 62 14 106/63 (77) 97 Room Air Current Medications Current Medications Medications (Trade) Dose Ordered Sig/Shanell Route PRN Reason Start Time Stop Time Status Last Admin Dose Admin Al Hydrox/Mg Hydrox/Simethicone (Mylanta) 30 ml Q4HP PRN PO HEARTBURN/INDIGESTION 05/23/20 19:15 05/29/20 19:38 Albuterol Sulfate (Proventil, Ventolin Hfa) 2 puff QID PRN INH SOB/WHEEZING 05/23/20 19:15 05/28/20 15:16 Amlodipine Besylate (Norvasc) 5 mg DAILY PO 05/24/20 17:40 06/06/20 17:30 DC 06/06/20 08:31 Aspirin (Ecotrin) 81 mg DAILY PO 05/24/20 09:00 06/06/20 08:30 Cyanocobalamin (Vitamin B12 Injection) 1,000 mcg Q7D@09 SC 05/27/20 09:00 06/03/20 10:00 Fluoxetine HCl (PROzac) 10 mg DAILY PO 05/24/20 09:00 05/31/20 16:48 DC 05/31/20 09:41 Fluoxetine HCl (PROzac) 20 mg DAILY PO 06/01/20 09:00 06/01/20 15:33 DC 06/01/20 08:28 Home Med (Med Rec Complete!) ASDIRECTED XX 05/23/20 16:30 05/23/20 16:30 DC Ibuprofen (Advil) 400 mg Q6HP PRN PO PAIN 05/23/20 19:15 05/30/20 20:05 Magnesium Hydroxide (Milk Of Magnesia) 30 ml DAILYPRN PRN PO CONSTIPATION 05/23/20 19:15 Methylphenidate HCl (Ritalin) 5 mg QAM PO 06/02/20 09:00 06/06/20 08:31 Multivitamins (Theragram-M) 1 tab DAILY PO 05/26/20 12:00 06/06/20 08:30 Nicotine (Nicoderm Cq 14mg) 1 patch DAILY TD 05/24/20 09:00 06/06/20 08:30 Non-Formulary Medication ( See Comment Field Below ) SEE LABEL COMMENTS DAILY XX 06/01/20 09:00 06/03/20 10:07 DC Olanzapine (ZyPREXA ZYDIS) 5 mg Q6HP PRN PO ANXIETY/AGITATION 05/24/20 00:40 06/01/20 15:33 DC 05/26/20 22:17 Olanzapine (ZyPREXA ZYDIS) 5 mg STAT STAT PO 06/06/20 17:32 06/06/20 17:33 DC 06/06/20 17:40 Olanzapine (ZyPREXA ZYDIS) 10 mg STAT STAT PO 05/24/20 00:37 05/24/20 00:39 DC 05/24/20 00:48 Omeprazole (PriLOSEC) 40 mg DAILY PO 05/25/20 09:00 06/06/20 08:30 Propranolol HCl (Inderal) 20 mg BID PO 06/06/20 21:00 06/06/20 20:20 Propranolol HCl (Inderal) 20 mg TID PO 05/23/20 21:00 06/06/20 17:30 DC 06/06/20 08:31 Senna (Senokot) 1 tab DAILY PO 06/07/20 09:00 Sucralfate (Carafate Suspension) 1 gm AC PO 05/24/20 07:30 06/07/20 06:47 Sucralfate (Carafate) 1 gm AC PO 05/23/20 17:30 05/24/20 07:41 DC 05/23/20 19:15 Trazodone HCl (Desyrel) 50 mg QHSP PRN PO INSOMNIA 05/23/20 19:15 06/04/20 23:21 Valsartan (Diovan) 160 mg DAILY PO 05/25/20 09:00 06/06/20 08:32 Allergies Coded Allergies: Penicillins (Verified Allergy, Intermediate, HIVES, 04/09/20) ANTONY ZALDIVAR NP Jun 07, 2020 08:29
[2020-06-07 16:06] VITALS: BP 135/90
[2020-06-07] MEDS: QUEtiapine FUMARATE 25 MG TAB PO SCH (21:00)
[2020-06-08 06:19] VITALS: BP 119/77
[2020-06-08] MEDS: SUCRALFATE SUSP 1GM/10ML UD PO SCH ×3 (06:47→17:06)
[2020-06-08] MEDS: NICOTINE 14 MG/24 HR TRANSDERMAL TD SCH (09:00)
[2020-06-08] MEDS: FLUoxetine 10 MG CAP PO SCH (09:00)
[2020-06-08] MEDS: ASPIRIN 81MG ENTERIC TABLET PO SCH (09:00)
[2020-06-08] MEDS: MULTIVITAMINS/MINERALS THERAP 1 TAB PO SCH (09:00)
[2020-06-08] MEDS: VALSARTAN 80 MG TAB (DIOVAN) PO SCH (09:00)
[2020-06-08] MEDS: OMEPRAZOLE 20 MG CAP PO SCH (09:00)
[2020-06-08] MEDS: PROPRANOLOL 20 MG TAB PO SCH ×2 (09:00→20:02)
[2020-06-08] MEDS: SENNA 8.6 MG TAB (SENOKOT) PO SCH (09:00)
--- NOTE | 2020-06-08 15:31 | MHIPNPDOC ---
[facility] Progress Note Progress Note DATE OF SERVICE: 06/08/20 HISTORY: Patient is a 55 -year-old , Retired/Disabled, Domiciled, , male, who was brought to reports that he was depressed and had poor sleep and was suicidal. "I took a knife to my throat because I was not getting enough sleep." When asked again why he was brought to the hospital patient states "I had difficulty breathing." This is patient's 3rd hospitalization in psychiatry, and he has had over 20+ ED visits since July 2019. Patient had a hospitalization in February 2020 (02/29/20-03/02/20) for Acute Encephalopathy with an admission to psychiatry 03/02/20-03/07/20. He was recently admitted and discharged from this facility from 04/09/20-05/02/20. Patient appears to have poor recall of the events leading up to this hospitalization, he does report depression with suicidal ideation but cannot clarify his stressors. According to his , he had only one solid day of good cognitive functioning and has declined since his discharge. VITAL SIGNS: See below. CURRENT MEDICATIONS: See below. MENTAL STATUS EXAMINATION: Patient is a 55 -year-old , Retired/Disabled, Domiciled, , male, who was brought to reports that he was depressed and had poor sleep and was suicidal. Today patient is disheveled in appearance, His hygiene and grooming is unkempt. Speech: Low volume and tone, with paucity Language skills are intact Thought processes including: Disorganized, scattered Thought content: denies depression and anxiety( Appears very depressed) denies suicidal thinking Abstract reasoning, and computation: impaired Description of associations: denies Description of abnormal or psychotic thoughts: denies Judgment: impaired Insight: impaired Orientation: alert Recent and remote memory: impaired Attention span and concentration: poor Language: minimal Fund of knowledge: below average at times Mood: irritable, hostile Affect: Flat DIAGNOSES: Major Depressive Disorder with psychotic features HTN Generalized anxiety disorder ASSESSMENT: Per the staff report, patient has had changing behaviors since last evening. He was yelling and growling in his room. He refused his Seroquel last night, was refusing to engage in conversation with staff. He was incontinent of urine this morning. He refused his am medications , daily weight. and his breakfast. He agreed to meet in the interview room. He was alert and oriented to self and place. He was able to name the correct year but not the correct date. Asked if he remembers what brought him to the hospital, he states that " I tried to kill myself but I don't now". He stated that he is doing good and waiting for dinner .This interview was before lunch time. Asked if he was incontinent of urine earlier, he denies it. Reiterated to him that his presentation and behavior changes indicates that he is not doing well enough for discharge home and that he will be going to [place]. He got angry and walked off the interview room. MANAGEMENT PLAN: Continue will all his medication. [place] [facility] [place] SPENT: 25 minutes. Vital Signs Vital Signs Date Time Temp Pulse Resp B/P (MAP) Pulse Ox O2 Delivery O2 Flow Rate FiO2 06/08/20 06:19 97.9 56 18 119/77 (91) 98 Room Air Current Medications Current Medications Medications (Trade) Dose Ordered Sig/Shanell Route PRN Reason Start Time Stop Time Status Last Admin Dose Admin Al Hydrox/Mg Hydrox/Simethicone (Mylanta) 30 ml Q4HP PRN PO HEARTBURN/INDIGESTION 05/23/20 19:15 05/29/20 19:38 Albuterol Sulfate (Proventil, Ventolin Hfa) 2 puff QID PRN INH SOB/WHEEZING 05/23/20 19:15 05/28/20 15:16 Amlodipine Besylate (Norvasc) 5 mg DAILY PO 05/24/20 17:40 06/06/20 17:30 DC 06/06/20 08:31 Aspirin (Ecotrin) 81 mg DAILY PO 05/24/20 09:00 06/07/20 09:30 Cyanocobalamin (Vitamin B12 Injection) 1,000 mcg Q7D@ [place] 05/27/20 09:00 06/03/20 10:00 Fluoxetine HCl (PROzac) 10 mg DAILY PO 05/24/20 09:00 05/31/20 16:48 DC 05/31/20 09:41 Fluoxetine HCl (PROzac) 10 mg DAILY PO 06/07/20 09:00 06/07/20 09:30 Fluoxetine HCl (PROzac) 20 mg DAILY PO 06/01/20 09:00 06/01/20 15:33 DC 06/01/20 08:28 Home Med (Med Rec Complete!) ASDIRECTED XX 05/23/20 16:30 05/23/20 16:30 DC Ibuprofen (Advil) 400 mg Q6HP PRN PO PAIN 05/23/20 19:15 05/30/20 20:05 Magnesium Hydroxide (Milk Of Magnesia) 30 ml DAILYPRN PRN PO CONSTIPATION 05/23/20 19:15 Methylphenidate HCl (Ritalin) 5 mg QAM PO 06/02/20 09:00 06/07/20 08:28 DC 06/06/20 08:31 Miscellaneous (Unresolved Clarification Entry) SEE LABEL COMMENTS DAILY XX 06/07/20 09:00 06/07/20 11:01 DC Multivitamins (Theragram-M) 1 tab DAILY PO 05/26/20 12:00 06/07/20 09:30 Nicotine (Nicoderm Cq 14mg) 1 patch DAILY TD 05/24/20 09:00 06/06/20 08:30 Non-Formulary Medication ( See Comment Field Below ) SEE LABEL COMMENTS DAILY XX 06/01/20 09:00 06/03/20 10:07 DC Olanzapine (ZyPREXA ZYDIS) 5 mg Q6HP PRN PO ANXIETY/AGITATION 05/24/20 00:40 06/01/20 15:33 DC 05/26/20 22:17 Olanzapine (ZyPREXA ZYDIS) 5 mg STAT STAT PO 06/06/20 17:32 06/06/20 17:33 DC 06/06/20 17:40 Olanzapine (ZyPREXA ZYDIS) 10 mg STAT STAT PO 05/24/20 00:37 05/24/20 00:39 DC 05/24/20 00:48 Omeprazole (PriLOSEC) 40 mg DAILY PO 05/25/20 09:00 06/07/20 09:30 Propranolol HCl (Inderal) 20 mg BID PO 06/06/20 21:00 06/07/20 09:30 Propranolol HCl (Inderal) 20 mg TID PO 05/23/20 21:00 06/06/20 17:30 DC 06/06/20 08:31 Quetiapine Fumarate (SEROquel) 25 mg QHS PO 06/07/20 21:00 Senna (Senokot) 1 tab DAILY PO 06/07/20 09:00 06/07/20 09:30 Sucralfate (Carafate Suspension) 1 gm AC PO 05/24/20 07:30 06/08/20 11:55 Sucralfate (Carafate) 1 gm AC PO 05/23/20 17:30 05/24/20 07:41 DC 05/23/20 19:15 Trazodone HCl (Desyrel) 50 mg QHSP PRN PO INSOMNIA 05/23/20 19:15 06/08/20 08:44 DC 06/04/20 23:21 Valsartan (Diovan) 160 mg DAILY PO 05/25/20 09:00 06/07/20 09:30 Allergies Coded Allergies: Penicillins (Verified Allergy, Intermediate, HIVES, 04/09/20) ANTONY ZALDIVAR BOXING INSTRUCTOR Jun 08, 2020 15:20
[2020-06-08 16:09] VITALS: BP 114/80
[2020-06-08] MEDS: QUEtiapine FUMARATE 25 MG TAB PO SCH (20:02)
[2020-06-09] MEDS: SUCRALFATE SUSP 1GM/10ML UD PO SCH ×3 (06:34→16:49)
[2020-06-09 06:40] VITALS: BP 128/87
[2020-06-09] MEDS: NICOTINE 14 MG/24 HR TRANSDERMAL TD SCH (08:23)
[2020-06-09] MEDS: PROPRANOLOL 20 MG TAB PO SCH ×2 (08:43→21:00)
[2020-06-09] MEDS: SENNA 8.6 MG TAB (SENOKOT) PO SCH (08:43)
[2020-06-09] MEDS: VALSARTAN 80 MG TAB (DIOVAN) PO SCH (08:43)
[2020-06-09] MEDS: FLUoxetine 10 MG CAP PO SCH (08:43)
[2020-06-09] MEDS: MULTIVITAMINS/MINERALS THERAP 1 TAB PO SCH (08:43)
[2020-06-09] MEDS: ASPIRIN 81MG ENTERIC TABLET PO SCH (08:43)
[2020-06-09] MEDS: OMEPRAZOLE 20 MG CAP PO SCH (08:43)
--- NOTE | 2020-06-09 10:49 | MHIPNPDOC ---
[facility] Progress Note Progress Note DATE OF SERVICE: 06/09/20 HISTORY: Patient is a 55 -year-old , Retired/Disabled, Domiciled, , male, who was brought to reports that he was depressed and had poor sleep and was suicidal. "I took a knife to my throat because I was not getting enough sleep." When asked again why he was brought to the hospital patient states "I had difficulty breathing." This is patient's 3rd hospitalization in psychiatry, and he has had over 20+ ED visits since July 2019. Patient had a hospitalization in February 2020 (02/29/20-03/02/20) for Acute Encephalopathy with an admission to psychiatry 03/02/20-03/07/20. He was recently admitted and discharged from this facility from 04/09/20-05/02/20. Patient appears to have poor recall of the events leading up to this hospitalization, he does report depression with suicidal ideation but cannot clarify his stressors. According to his , he had only one solid day of good cognitive functioning and has declined since his discharge. VITAL SIGNS: See below. CURRENT MEDICATIONS: See below. MENTAL STATUS EXAMINATION: Patient is a 55 -year-old , Retired/Disabled, Domiciled, , male, who was brought to reports that he was depressed and had poor sleep and was suicidal. Today patient is disheveled in appearance, His hygiene and grooming is unkempt. Speech: Low volume and tone, impoverished Language skills are intact Thought processes including: Disorganized, scattered, paranoia Thought content: denies depression and anxiety( Appears very depressed) denies suicidal thinking Abstract reasoning, and computation: impaired Description of associations: denies Description of abnormal or psychotic thoughts: denies Judgment: impaired Insight: impaired Orientation: alert Recent and remote memory: impaired Attention span and concentration: poor Language: minimal Fund of knowledge: below average at times Mood: irritable, dismissive Affect: Flat DIAGNOSES: Major Depressive Disorder with psychotic features HTN Generalized anxiety disorder ASSESSMENT: Approached patient many times while he is walking in the hallway. He is refusing to meet with provider states "No, I don't need to talk, I am fine. I just want to walk." Patient has had more agitation and irritable behaviors as reported by staff. He appears paranoid when he is approached by this provider. He makes poor eye contact with peers and staff, does not engage in meaningful conversations. Unable to discuss [place] transfer with patient although he has been told about treatment/discharge plan earlier in the week. MANAGEMENT PLAN: Continue will all his medication. Pending transfer to [facility] [place] TIME SPENT: 15 minutes. Vital Signs Vital Signs Date Time Temp Pulse Resp B/P (MAP) Pulse Ox O2 Delivery O2 Flow Rate FiO2 06/09/20 08:43 96 128/87 06/09/20 06:40 98.1 20 99 Room Air Current Medications Current Medications Medications (Trade) Dose Ordered Sig/Shanell Route PRN Reason Start Time Stop Time Status Last Admin Dose Admin Al Hydrox/Mg Hydrox/Simethicone (Mylanta) 30 ml Q4HP PRN PO HEARTBURN/INDIGESTION 05/23/20 19:15 05/29/20 19:38 Albuterol Sulfate (Proventil, Ventolin Hfa) 2 puff QID PRN INH SOB/WHEEZING 05/23/20 19:15 05/28/20 15:16 Amlodipine Besylate (Norvasc) 5 mg DAILY PO 05/24/20 17:40 06/06/20 17:30 DC 06/06/20 08:31 Aspirin (Ecotrin) 81 mg DAILY PO 05/24/20 09:00 06/09/20 08:43 Cyanocobalamin (Vitamin B12 Injection) 1,000 mcg Q7D@09 [place] 05/27/20 09:00 06/03/20 10:00 Fluoxetine HCl (PROzac) 10 mg DAILY PO 05/24/20 09:00 05/31/20 16:48 DC 05/31/20 09:41 Fluoxetine HCl (PROzac) 10 mg DAILY PO 06/07/20 09:00 06/09/20 08:43 Fluoxetine HCl (PROzac) 20 mg DAILY PO 06/01/20 09:00 06/01/20 15:33 DC 06/01/20 08:28 Home Med (Med Rec Complete!) ASDIRECTED XX 05/23/20 16:30 05/23/20 16:30 DC Ibuprofen (Advil) 400 mg Q6HP PRN PO PAIN 05/23/20 19:15 05/30/20 20:05 Magnesium Hydroxide (Milk Of Magnesia) 30 ml DAILYPRN PRN PO CONSTIPATION 05/23/20 19:15 Methylphenidate HCl (Ritalin) 5 mg QAM PO 06/02/20 09:00 06/07/20 08:28 DC 06/06/20 08:31 Miscellaneous (Unresolved Clarification Entry) SEE LABEL COMMENTS DAILY XX 06/07/20 09:00 06/07/20 11:01 DC Multivitamins (Theragram-M) 1 tab DAILY PO 05/26/20 12:00 06/09/20 08:43 Nicotine (Nicoderm Cq 14mg) 1 patch DAILY TD 05/24/20 09:00 06/06/20 08:30 Non-Formulary Medication ( See Comment Field Below ) SEE LABEL COMMENTS DAILY XX 06/01/20 09:00 06/03/20 10:07 DC Olanzapine (ZyPREXA ZYDIS) 5 mg Q6HP PRN PO ANXIETY/AGITATION 05/24/20 00:40 06/01/20 15:33 DC 05/26/20 22:17 Olanzapine (ZyPREXA ZYDIS) 5 mg STAT STAT PO 06/06/20 17:32 06/06/20 17:33 DC 06/06/20 17:40 Olanzapine (ZyPREXA ZYDIS) 10 mg STAT STAT PO 05/24/20 00:37 05/24/20 00:39 DC 05/24/20 00:48 Omeprazole (PriLOSEC) 40 mg DAILY PO 05/25/20 09:00 06/09/20 08:43 Propranolol HCl (Inderal) 20 mg BID PO 06/06/20 21:00 06/09/20 08:43 Propranolol HCl (Inderal) 20 mg TID PO 05/23/20 21:00 06/06/20 17:30 DC 06/06/20 08:31 Quetiapine Fumarate (SEROquel) 25 mg QHS PO 06/07/20 21:00 06/08/20 20:02 Senna (Senokot) 1 tab DAILY PO 06/07/20 09:00 06/09/20 08:43 Sucralfate (Carafate Suspension) 1 gm AC PO 05/24/20 07:30 06/09/20 06:34 Sucralfate (Carafate) 1 gm AC PO 05/23/20 17:30 05/24/20 07:41 DC 05/23/20 19:15 Trazodone HCl (Desyrel) 50 mg QHSP PRN PO INSOMNIA 05/23/20 19:15 06/08/20 08:44 DC 06/04/20 23:21 Valsartan (Diovan) 160 mg DAILY PO 05/25/20 09:00 06/09/20 08:43 Allergies Coded Allergies: Penicillins (Verified Allergy, Intermediate, HIVES, 04/09/20) ANTONY ZALDIVAR TYING IN MACHINE OPERATOR Jun 09, 2020 10:49
--- NOTE | 2020-06-09 15:58 | MHCRPDOC ---
[facility] Consultation Consultation DATE OF CONSULTATION: 06/09/20 CONSULTATION REQUESTED BY: This was an administrative hearing REASON FOR CONSULTATION: . Jean-Paul did not attend this hearing. His provider, Malissa Zaldivar NP, shared that she was recommending that Jean[place]Paul be transfered [place] [facility] due to the following: Jean-Paul has had 3 inpatient admission within the past 6-7 months, His is not accepting him back into the home as the last time he was there he was stable for only one day, he is not compliant with his medication, he ogeos 2-3 days without eating and or drinking and 1 1/2 weekds without showering and changing his clothes. He has no other family that would take him in. It is this sales ledger administrator's opinion that Jean-Paul is appropriate for a transfer to [facility]. Milagro Jansen, CHANEL, CASAC-M 06/09/20 3:57pm Vital Signs Vital Signs Date Time Temp Pulse Resp B/P (MAP) Pulse Ox O2 Delivery O2 Flow Rate FiO2 06/09/20 09:00 Room Air 06/09/20 08:43 96 128/87 06/09/20 06:40 98.1 20 99 Home Medications Current Medications Current Medications Medications (Trade) Dose Ordered Sig/Shanell Route PRN Reason Start Time Stop Time Status Last Admin Dose Admin Al Hydrox/Mg Hydrox/Simethicone (Mylanta) 30 ml Q4HP PRN PO HEARTBURN/INDIGESTION 05/23/20 19:15 05/29/20 19:38 Albuterol Sulfate (Proventil, Ventolin Hfa) 2 puff QID PRN INH SOB/WHEEZING 05/23/20 19:15 05/28/20 15:16 Amlodipine Besylate (Norvasc) 5 mg DAILY PO 05/24/20 17:40 06/06/20 17:30 DC 06/06/20 08:31 Aspirin (Ecotrin) 81 mg DAILY PO 05/24/20 09:00 06/09/20 08:43 Cyanocobalamin (Vitamin B12 Injection) 1,000 mcg Q7D@09 SC 05/27/20 09:00 06/03/20 10:00 Fluoxetine HCl (PROzac) 10 mg DAILY PO 05/24/20 09:00 05/31/20 16:48 DC 05/31/20 09:41 Fluoxetine HCl (PROzac) 10 mg DAILY PO 06/07/20 09:00 06/09/20 08:43 Fluoxetine HCl (PROzac) 20 mg DAILY PO 06/01/20 09:00 06/01/20 15:33 DC 06/01/20 08:28 Home Med (Med Rec Complete!) ASDIRECTED XX 05/23/20 16:30 05/23/20 16:30 DC Ibuprofen (Advil) 400 mg Q6HP PRN PO PAIN 05/23/20 19:15 05/30/20 20:05 Magnesium Hydroxide (Milk Of Magnesia) 30 ml DAILYPRN PRN PO CONSTIPATION 05/23/20 19:15 Methylphenidate HCl (Ritalin) 5 mg QAM PO 06/02/20 09:00 06/07/20 08:28 DC 06/06/20 08:31 Miscellaneous (Unresolved Clarification Entry) SEE LABEL COMMENTS DAILY XX 06/07/20 09:00 06/07/20 11:01 DC Multivitamins (Theragram-M) 1 tab DAILY PO 05/26/20 12:00 06/09/20 08:43 Nicotine (Nicoderm Cq 14mg) 1 patch DAILY TD 05/24/20 09:00 06/09/20 10:44 DC 06/06/20 08:30 Non-Formulary Medication ( See Comment Field Below ) SEE LABEL COMMENTS DAILY XX 06/01/20 09:00 06/03/20 10:07 DC Olanzapine (ZyPREXA ZYDIS) 5 mg Q6HP PRN PO ANXIETY/AGITATION 05/24/20 00:40 06/01/20 15:33 DC 05/26/20 22:17 Olanzapine (ZyPREXA ZYDIS) 5 mg STAT STAT PO 06/06/20 17:32 06/06/20 17:33 DC 06/06/20 17:40 Olanzapine (ZyPREXA ZYDIS) 10 mg STAT STAT PO 05/24/20 00:37 05/24/20 00:39 DC 05/24/20 00:48 Omeprazole (PriLOSEC) 40 mg DAILY PO 05/25/20 09:00 06/09/20 08:43 Propranolol HCl (Inderal) 20 mg BID PO 06/06/20 21:00 06/09/20 08:43 Propranolol HCl (Inderal) 20 mg TID PO 05/23/20 21:00 06/06/20 17:30 DC 06/06/20 08:31 Quetiapine Fumarate (SEROquel) 25 mg QHS PO 06/07/20 21:00 06/08/20 20:02 Senna (Senokot) 1 tab DAILY PO 06/07/20 09:00 06/09/20 08:43 Sucralfate (Carafate Suspension) 1 gm AC PO 05/24/20 07:30 06/09/20 06:34 Sucralfate (Carafate) 1 gm AC PO 05/23/20 17:30 05/24/20 07:41 DC 05/23/20 19:15 Trazodone HCl (Desyrel) 50 mg QHSP PRN PO INSOMNIA 05/23/20 19:15 06/08/20 08:44 DC 06/04/20 23:21 Valsartan (Diovan) 160 mg DAILY PO 05/25/20 09:00 06/09/20 08:43 Scheduled Amlodipine Besylate/Valsartan (Amlodipine-Valsartan 5-160 mg) 1 Each Tablet, 1 TAB PO DAILY, (Reported) Aspirin (Aspirin EC) 81 Mg Tablet.dr, 81 MG PO DAILY, (Reported) Fluoxetine Hcl (Fluoxetine HCl) 10 Mg Capsule, 10 MG PO DAILY, (Reported) Omeprazole (Omeprazole) 40 Mg Capsule.dr, 40 MG PO DAILY, (Reported) Propranolol HCl (Propranolol HCl) 20 Mg Tablet, 20 MG PO TID, (Reported) Sucralfate (Sucralfate) 1 Gm Tablet, 1 GM PO AC, (Reported) Scheduled PRN Albuterol Sulfate (Ventolin Hfa) 18 Gm Hfa.aer.ad, 2 PUFFS INH QID PRN for SOB/WHEEZING, (Reported) Allergies Coded Allergies: Penicillins (Verified Allergy, Intermediate, HIVES, 04/09/20) MALISSA ZALDIVAR NP Jun 09, 2020 15:58
[2020-06-09] MEDS: QUEtiapine FUMARATE 25 MG TAB PO SCH (21:00)
[2020-06-10] MEDS: SUCRALFATE SUSP 1GM/10ML UD PO SCH ×4 (06:36→17:30)
[2020-06-10] MEDS: CYANOCOBALAMIN 1,000MCG/ML VIAL (J3420) SC SCH (09:00)
[2020-06-10] MEDS: OMEPRAZOLE 20 MG CAP PO SCH (09:00)
[2020-06-10] MEDS: ASPIRIN 81MG ENTERIC TABLET PO SCH (09:00)
[2020-06-10] MEDS: FLUoxetine 10 MG CAP PO SCH (09:00)
[2020-06-10] MEDS: VALSARTAN 80 MG TAB (DIOVAN) PO SCH (09:00)
[2020-06-10] MEDS: PROPRANOLOL 20 MG TAB PO SCH ×2 (09:00→21:00)
[2020-06-10] MEDS: SENNA 8.6 MG TAB (SENOKOT) PO SCH (09:50)
[2020-06-10] MEDS: MULTIVITAMINS/MINERALS THERAP 1 TAB PO SCH (09:50)
--- NOTE | 2020-06-10 11:18 | MHIPNPDOC ---
[facility] Progress Note Progress Note DATE OF SERVICE: 06/10/20 HISTORY: Patient is a 55 -year-old , Retired/Disabled, Domiciled, , male, who was brought to reports that he was depressed and had poor sleep and was suicidal. "I took a knife to my throat because I was not getting enough sleep." When asked again why he was brought to the hospital patient states "I had difficulty breathing." This is patient's 3rd hospitalization in psychiatry, and he has had over 20+ ED visits since July 2019. Patient had a hospitalization in February 2020 (02/29/20-03/02/20) for Acute Encephalopathy with an admission to psychiatry 03/02/20-03/07/20. He was recently admitted and discharged from this facility from 04/09/20-05/02/20. Patient appears to have poor recall of the events leading up to this hospitalization, he does report depression with suicidal ideation but cannot clarify his stressors. According to his , he had only one solid day of good cognitive functioning and has declined since his discharge. VITAL SIGNS: See below. CURRENT MEDICATIONS: See below. MENTAL STATUS EXAMINATION: Patient is a 55 -year-old , Retired/Disabled, Domiciled, , male, who was brought to reports that he was depressed and had poor sleep and was suicidal. Patient continues to be disheveled in appearance, His hygiene and grooming is unkempt. When encouraged to attend to these needs, he is dismissive according to staff. Makes poor eye contact Speech: Low volume and tone, impoverished Language skills are intact Thought processes including: Disorganized, paranoia, dismissive Thought content: denies depression and anxiety( Appears very depressed) denies suicidal thinking Abstract reasoning, and computation: impaired Description of associations: unable to assess Description of abnormal or psychotic thoughts: unable to assess Judgment: impaired Insight: impaired Orientation: alert Recent and remote memory: impaired Attention span and concentration: poor Language: minimal Fund of knowledge: below average at times Mood: depressive symptoms, dismissive Affect: Flat DIAGNOSES: Major Depressive Disorder with psychotic features HTN Generalized anxiety disorder ASSESSMENT: Patient was observed walking earlier in the morning, he declined to meet with provider on numerous times during the morning. He was found lying in bed and stated that he would not meet with provider. He is disheveled, has poor hygiene and grooming. Makes little to no eye contact. According to staff he refused his medications and meals today. Labs were ordered, and he stated "I am not doing that." Per staff he has been refusing to engage with staff for any 1:1 sessions. Patient also refused to participate in the Administrative Hearing regarding transfer to [place]. Patient's transfer has been approved. MANAGEMENT PLAN: Continue will all his medication. Pending transfer to [facility] TIME SPENT: 15 minutes. Vital Signs Vital Signs Date Time Temp Pulse Resp B/P (MAP) Pulse Ox O2 Delivery O2 Flow Rate FiO2 06/10/20 10:43 Room Air 06/10/20 09:00 72 06/10/20 09:00 133/73 06/09/20 16:45 97.9 16 06/09/20 06:40 99 Current Medications Current Medications Medications (Trade) Dose Ordered Sig/Shanell Route PRN Reason Start Time Stop Time Status Last Admin Dose Admin Al Hydrox/Mg Hydrox/Simethicone (Mylanta) 30 ml Q4HP PRN PO HEARTBURN/INDIGESTION 05/23/20 19:15 05/29/20 19:38 Albuterol Sulfate (Proventil, Ventolin Hfa) 2 puff QID PRN INH SOB/WHEEZING 05/23/20 19:15 05/28/20 15:16 Amlodipine Besylate (Norvasc) 5 mg DAILY PO 05/24/20 17:40 06/06/20 17:30 DC 06/06/20 08:31 Aspirin (Ecotrin) 81 mg DAILY PO 05/24/20 09:00 06/09/20 08:43 Cyanocobalamin (Vitamin B12 Injection) 1,000 mcg Q7D@ [place] 05/27/20 09:00 06/03/20 10:00 Fluoxetine HCl (PROzac) 10 mg DAILY PO 05/24/20 09:00 05/31/20 16:48 DC 05/31/20 09:41 Fluoxetine HCl (PROzac) 10 mg DAILY PO 06/07/20 09:00 06/09/20 08:43 Fluoxetine HCl (PROzac) 20 mg DAILY PO 06/01/20 09:00 06/01/20 15:33 DC 06/01/20 08:28 Home Med (Med Rec Complete!) ASDIRECTED XX 05/23/20 16:30 05/23/20 16:30 DC Ibuprofen (Advil) 400 mg Q6HP PRN PO PAIN 05/23/20 19:15 05/30/20 20:05 Magnesium Hydroxide (Milk Of Magnesia) 30 ml DAILYPRN PRN PO CONSTIPATION 05/23/20 19:15 Methylphenidate HCl (Ritalin) 5 mg QAM PO 06/02/20 09:00 06/07/20 08:28 DC 06/06/20 08:31 Miscellaneous (Unresolved Clarification Entry) SEE LABEL COMMENTS DAILY XX 06/07/20 09:00 06/07/20 11:01 DC Multivitamins (Theragram-M) 1 tab DAILY PO 05/26/20 12:00 06/10/20 09:50 Nicotine (Nicoderm Cq 14mg) 1 patch DAILY TD 05/24/20 09:00 06/09/20 10:44 DC 06/06/20 08:30 Non-Formulary Medication ( See Comment Field Below ) SEE LABEL COMMENTS DAILY XX 06/01/20 09:00 06/03/20 10:07 DC Olanzapine (ZyPREXA ZYDIS) 5 mg Q6HP PRN PO ANXIETY/AGITATION 05/24/20 00:40 06/01/20 15:33 DC 05/26/20 22:17 Olanzapine (ZyPREXA ZYDIS) 5 mg STAT STAT PO 06/06/20 17:32 06/06/20 17:33 DC 06/06/20 17:40 Olanzapine (ZyPREXA ZYDIS) 10 mg STAT STAT PO 05/24/20 00:37 05/24/20 00:39 DC 05/24/20 00:48 Omeprazole (PriLOSEC) 40 mg DAILY PO 05/25/20 09:00 06/09/20 08:43 Propranolol HCl (Inderal) 20 mg BID PO 06/06/20 21:00 06/09/20 08:43 Propranolol HCl (Inderal) 20 mg TID PO 05/23/20 21:00 06/06/20 17:30 DC 06/06/20 08:31 Quetiapine Fumarate (SEROquel) 25 mg QHS PO 06/07/20 21:00 06/08/20 20:02 Senna (Senokot) 1 tab DAILY PO 06/07/20 09:00 06/10/20 09:50 Sucralfate (Carafate Suspension) 1 gm AC PO 05/24/20 07:30 06/09/20 06:34 Sucralfate (Carafate) 1 gm AC PO 05/23/20 17:30 05/24/20 07:41 DC 05/23/20 19:15 Trazodone HCl (Desyrel) 50 mg QHSP PRN PO INSOMNIA 05/23/20 19:15 06/08/20 08:44 DC 06/04/20 23:21 Valsartan (Diovan) 160 mg DAILY PO 05/25/20 09:00 06/09/20 08:43 Allergies Coded Allergies: Penicillins (Verified Allergy, Intermediate, HIVES, 04/09/20) ANTONY ZALDIVAR PHARMACIST IN CHARGE OWNER Jun 10, 2020 11:14
[2020-06-10 16:09] VITALS: BP 135/97
[2020-06-10] MEDS: QUEtiapine FUMARATE 25 MG TAB PO SCH (21:00)
[2020-06-11] MEDS: SUCRALFATE SUSP 1GM/10ML UD PO SCH ×3 (06:35→17:18)
[2020-06-11] MEDS: ASPIRIN 81MG ENTERIC TABLET PO SCH (09:13)
[2020-06-11] MEDS: OMEPRAZOLE 20 MG CAP PO SCH (09:13)
[2020-06-11] MEDS: FLUoxetine 10 MG CAP PO SCH (09:14)
[2020-06-11] MEDS: PROPRANOLOL 20 MG TAB PO SCH ×2 (09:14→21:00)
[2020-06-11] MEDS: SENNA 8.6 MG TAB (SENOKOT) PO SCH (09:14)
[2020-06-11] MEDS: MULTIVITAMINS/MINERALS THERAP 1 TAB PO SCH (09:14)
[2020-06-11] MEDS: VALSARTAN 80 MG TAB (DIOVAN) PO SCH (09:17)
[2020-06-11 16:02] VITALS: BP 103/60
[2020-06-11] MEDS: QUEtiapine FUMARATE 25 MG TAB PO SCH (21:00)
[2020-06-12 06:16] VITALS: BP 139/97
[2020-06-12] MEDS: SUCRALFATE SUSP 1GM/10ML UD PO SCH ×3 (07:01→16:53)
[2020-06-12] MEDS: VALSARTAN 80 MG TAB (DIOVAN) PO SCH (09:00)
[2020-06-12] MEDS: OMEPRAZOLE 20 MG CAP PO SCH (09:00)
[2020-06-12] MEDS: MULTIVITAMINS/MINERALS THERAP 1 TAB PO SCH (09:00)
[2020-06-12] MEDS: ASPIRIN 81MG ENTERIC TABLET PO SCH (09:00)
[2020-06-12] MEDS: SENNA 8.6 MG TAB (SENOKOT) PO SCH (09:00)
[2020-06-12] MEDS: FLUoxetine 10 MG CAP PO SCH (09:00)
[2020-06-12] MEDS: PROPRANOLOL 20 MG TAB PO SCH ×2 (09:00→20:54)
[2020-06-12] MEDS: QUEtiapine FUMARATE 25 MG TAB PO SCH (20:54)
[2020-06-13] MEDS: SUCRALFATE SUSP 1GM/10ML UD PO SCH ×3 (06:35→16:43)
[2020-06-13 06:58] VITALS: BP 153/87
[2020-06-13] MEDS: PROPRANOLOL 20 MG TAB PO SCH ×2 (09:06→21:00)
[2020-06-13] MEDS: ASPIRIN 81MG ENTERIC TABLET PO SCH (09:07)
[2020-06-13] MEDS: FLUoxetine 10 MG CAP PO SCH (09:07)
[2020-06-13] MEDS: VALSARTAN 80 MG TAB (DIOVAN) PO SCH (09:07)
[2020-06-13] MEDS: OMEPRAZOLE 20 MG CAP PO SCH (09:08)
[2020-06-13] MEDS: MULTIVITAMINS/MINERALS THERAP 1 TAB PO SCH (09:08)
[2020-06-13] MEDS: SENNA 8.6 MG TAB (SENOKOT) PO SCH (09:08)
--- NOTE | 2020-06-13 14:07 | MHIPNPDOC ---
[facility] Progress Note Progress Note DATE OF SERVICE: 06/13/20 HISTORY: Patient is a 55 -year-old , Retired/Disabled, Domiciled, , male, who was brought to reports that he was depressed and had poor sleep and was suicidal. "I took a knife to my throat because I was not getting enough sleep." When asked again why he was brought to the hospital patient states "I had difficulty breathing." This is patient's 3rd hospitalization in psychiatry, and he has had over 20+ ED visits since July 2019. Patient had a hospitalization in February 2020 (02/29/20-03/02/20) for Acute Encephalopathy with an admission to psychiatry 03/02/20-03/07/20. He was recently admitted and discharged from this facility from 04/09/20-05/02/20. Patient appears to have poor recall of the events leading up to this hospitalization, he does report depression with suicidal ideation but cannot clarify his stressors. According to his , he had only one solid day of good cognitive functioning and has declined since his discharge. VITAL SIGNS: See below. CURRENT MEDICATIONS: See below. MENTAL STATUS EXAMINATION: Patient is a 55 -year-old , Retired/Disabled, Domiciled, , male, who was brought to reports that he was depressed and had poor sleep and was suicidal. Patient continues to be disheveled in appearance, His hygiene and grooming is unkempt. When encouraged to attend to these needs, he is dismissive according to staff. Makes poor eye contact Speech: Low volume and tone, impoverished Language skills are intact Thought processes including: Disorganized, dismissive, disengaged Thought content: denies depression and anxiety( Appears very depressed) denies suicidal thinking Abstract reasoning, and computation: impaired Description of associations: unable to assess Description of abnormal or psychotic thoughts: unable to assess Judgment: impaired Insight: impaired Orientation: alert Recent and remote memory: impaired Attention span and concentration: poor Language: minimal Fund of knowledge: below average at times Mood: depressive symptoms, dismissive Affect: Flat DIAGNOSES: Major Depressive Disorder with psychotic features HTN Generalized anxiety disorder ASSESSMENT: In the morning he was walking in the hallway and mildly pleasant. When provider approached him while he was in his bed, he refused to get out of bed lying in position, when approached he looked at provider but did not answer, staring blankly. Refused to engage in conversation and refused to be interviewed. He has been refusing medications x 3 days. He has been sporadically taking medications. Over the weekend he was observed walking but refusing to engage with staff. Patient denies depression or anxiety but is observed to be depressed, lacking motivation. He has not attended to his ADLs and refuses to have conversation about it. Poor insight and poor judgment. MANAGEMENT PLAN: Continue will all his medication. Pending transfer to [facility] TIME SPENT: 15 minutes. Vital Signs Vital Signs Date Time Temp Pulse Resp B/P (MAP) Pulse Ox O2 Delivery O2 Flow Rate FiO2 06/13/20 09:07 153/87 06/13/20 09:06 80 06/13/20 06:58 98.1 20 100 Room Air Current Medications Current Medications Medications (Trade) Dose Ordered Sig/Shanell Route PRN Reason Start Time Stop Time Status Last Admin Dose Admin Al Hydrox/Mg Hydrox/Simethicone (Mylanta) 30 ml Q4HP PRN PO HEARTBURN/INDIGESTION 05/23/20 19:15 05/29/20 19:38 Albuterol Sulfate (Proventil, Ventolin Hfa) 2 puff QID PRN INH SOB/WHEEZING 05/23/20 19:15 05/28/20 15:16 Amlodipine Besylate (Norvasc) 5 mg DAILY PO 05/24/20 17:40 06/06/20 17:30 DC 06/06/20 08:31 Aspirin (Ecotrin) 81 mg DAILY PO 05/24/20 09:00 06/13/20 09:07 Cyanocobalamin (Vitamin B12 Injection) 1,000 mcg Q7D@ [place] 05/27/20 09:00 06/03/20 10:00 Fluoxetine HCl (PROzac) 10 mg DAILY PO 05/24/20 09:00 05/31/20 16:48 DC 05/31/20 09:41 Fluoxetine HCl (PROzac) 10 mg DAILY PO 06/07/20 09:00 06/13/20 09:07 Fluoxetine HCl (PROzac) 20 mg DAILY PO 06/01/20 09:00 06/01/20 15:33 DC 06/01/20 08:28 Home Med (Med Rec Complete!) ASDIRECTED XX 05/23/20 16:30 05/23/20 16:30 DC Ibuprofen (Advil) 400 mg Q6HP PRN PO PAIN 05/23/20 19:15 05/30/20 20:05 Magnesium Hydroxide (Milk Of Magnesia) 30 ml DAILYPRN PRN PO CONSTIPATION 05/23/20 19:15 Methylphenidate HCl (Ritalin) 5 mg QAM PO 06/02/20 09:00 06/07/20 08:28 DC 06/06/20 08:31 Miscellaneous (Unresolved Clarification Entry) SEE LABEL COMMENTS DAILY XX 06/07/20 09:00 06/07/20 11:01 DC Multivitamins (Theragram-M) 1 tab DAILY PO 05/26/20 12:00 06/13/20 09:08 Nicotine (Nicoderm Cq 14mg) 1 patch DAILY TD 05/24/20 09:00 06/09/20 10:44 DC 06/06/20 08:30 Non-Formulary Medication ( See Comment Field Below ) SEE LABEL COMMENTS DAILY XX 06/01/20 09:00 06/03/20 10:07 DC Olanzapine (ZyPREXA ZYDIS) 5 mg Q6HP PRN PO ANXIETY/AGITATION 05/24/20 00:40 06/01/20 15:33 DC 05/26/20 22:17 Olanzapine (ZyPREXA ZYDIS) 5 mg STAT STAT PO 06/06/20 17:32 06/06/20 17:33 DC 06/06/20 17:40 Olanzapine (ZyPREXA ZYDIS) 10 mg STAT STAT PO 05/24/20 00:37 05/24/20 00:39 DC 05/24/20 00:48 Omeprazole (PriLOSEC) 40 mg DAILY PO 05/25/20 09:00 06/13/20 09:08 Propranolol HCl (Inderal) 20 mg BID PO 06/06/20 21:00 06/13/20 09:06 Propranolol HCl (Inderal) 20 mg TID PO 05/23/20 21:00 06/06/20 17:30 DC 06/06/20 08:31 Quetiapine Fumarate (SEROquel) 25 mg QHS PO 06/07/20 21:00 06/08/20 20:02 Senna (Senokot) 1 tab DAILY PO 06/07/20 09:00 06/13/20 09:08 Sucralfate (Carafate Suspension) 1 gm AC PO 05/24/20 07:30 06/13/20 06:35 Sucralfate (Carafate) 1 gm AC PO 05/23/20 17:30 05/24/20 07:41 DC 05/23/20 19:15 Trazodone HCl (Desyrel) 50 mg QHSP PRN PO INSOMNIA 05/23/20 19:15 06/08/20 08:44 DC 06/04/20 23:21 Valsartan (Diovan) 160 mg DAILY PO 05/25/20 09:00 06/13/20 09:07 Allergies Coded Allergies: Penicillins (Verified Allergy, Intermediate, HIVES, 04/09/20) ANTONY ZALDIVAR NP June 13, 2020 12:07
[2020-06-13 18:00] VITALS: BP 124/69
[2020-06-13] MEDS: QUEtiapine FUMARATE 25 MG TAB PO SCH (21:00)
[2020-06-14] MEDS: SUCRALFATE SUSP 1GM/10ML UD PO SCH ×4 (06:11→16:39)
[2020-06-14 06:21] VITALS: BP 147/95
[2020-06-14] MEDS: OMEPRAZOLE 20 MG CAP PO SCH (08:58)
[2020-06-14] MEDS: VALSARTAN 80 MG TAB (DIOVAN) PO SCH (08:58)
[2020-06-14] MEDS: FLUoxetine 10 MG CAP PO SCH (08:58)
[2020-06-14] MEDS: MULTIVITAMINS/MINERALS THERAP 1 TAB PO SCH (08:58)
[2020-06-14] MEDS: ASPIRIN 81MG ENTERIC TABLET PO SCH (08:58)
[2020-06-14] MEDS: PROPRANOLOL 20 MG TAB PO SCH ×2 (08:59→21:40)
[2020-06-14] MEDS: SENNA 8.6 MG TAB (SENOKOT) PO SCH (08:59)
--- NOTE | 2020-06-14 13:45 | MHIPNPDOC ---
[facility] Progress Note Progress Note DATE OF SERVICE: 06/14/20 HISTORY: Patient is a 55 -year-old , Retired/Disabled, Domiciled, , male, who was brought to reports that he was depressed and had poor sleep and was suicidal. "I took a knife to my throat because I was not getting enough sleep." When asked again why he was brought to the hospital patient states "I had difficulty breathing." This is patient's 3rd hospitalization in psychiatry, and he has had over 20+ ED visits since July 2019. Patient had a hospitalization in February 2020 (02/29/20-03/02/20) for Acute Encephalopathy with an admission to psychiatry 03/02/20-03/07/20. He was recently admitted and discharged from this facility from 04/09/20-05/02/20. Patient appears to have poor recall of the events leading up to this hospitalization, he does report depression with suicidal ideation but cannot clarify his stressors. According to his , he had only one solid day of good cognitive functioning and has declined since his discharge. VITAL SIGNS: See below. CURRENT MEDICATIONS: See below. MENTAL STATUS EXAMINATION: Patient is a 55 -year-old , Retired/Disabled, Domiciled, , male, who was brought to reports that he was depressed and had poor sleep and was suicidal. Patient continues to be disheveled in appearance, His hygiene and grooming is unkempt. When encouraged to attend to these needs, he is dismissive according to staff. Improved eye contact Speech: Low volume and tone, refusing to meet with provider Language skills are intact Thought processes including: Disorganized, dismissive, disengaged Thought content: denies depression and anxiety( Appears very depressed) denies suicidal thinking Abstract reasoning, and computation: impaired Description of associations: unable to assess Description of abnormal or psychotic thoughts: unable to assess Judgment: impaired Insight: impaired Orientation: alert Recent and remote memory: impaired Attention span and concentration: poor Language: minimal Fund of knowledge: below average at times Mood: depressive symptoms, dismissive Affect: Flat DIAGNOSES: Major Depressive Disorder with psychotic features HTN Generalized anxiety disorder ASSESSMENT: Patient out in the milieu. Refusing to meet with provider, states that he wants to have his lunch first and will meet with provider afterwards. Patient has been intermittently taking his medications. Attempted to meet with the patient again. Patient found in his room, refusing to speak with provider, poor eye contact, disheveled and poor hygiene. , According to staff, patient showered yesterday ate breakfast twice. He skipped lunch and then ate dinner. He needs much encouragement to take meds and eat meals during the day. Agent continues to have poor insight, poor judgment. He is alert and oriented but disengaged disconnected, not participating in any treatment modalities MANAGEMENT PLAN: Continue will all his medication. Pending transfer to [facility] [place] TIME SPENT: 15 minutes. Vital Signs Vital Signs Date Time Temp Pulse Resp B/P (MAP) Pulse Ox O2 Delivery O2 Flow Rate FiO2 06/14/20 06:21 98.5 71 16 147/95 (112) 99 Room Air Current Medications Current Medications Medications (Trade) Dose Ordered Sig/Shanell Route PRN Reason Start Time Stop Time Status Last Admin Dose Admin Al Hydrox/Mg Hydrox/Simethicone (Mylanta) 30 ml Q4HP PRN PO HEARTBURN/INDIGESTION 05/23/20 19:15 05/29/20 19:38 Albuterol Sulfate (Proventil, Ventolin Hfa) 2 puff QID PRN INH SOB/WHEEZING 05/23/20 19:15 05/28/20 15:16 Amlodipine Besylate (Norvasc) 5 mg DAILY PO 05/24/20 17:40 06/06/20 17:30 DC 06/06/20 08:31 Aspirin (Ecotrin) 81 mg DAILY PO 05/24/20 09:00 06/13/20 09:07 Cyanocobalamin (Vitamin B12 Injection) 1,000 mcg Q7D@09 ID 05/27/20 09:00 06/03/20 10:00 Fluoxetine HCl (PROzac) 10 mg DAILY PO 05/24/20 09:00 05/31/20 16:48 DC 05/31/20 09:41 Fluoxetine HCl (PROzac) 10 mg DAILY PO 06/07/20 09:00 06/13/20 09:07 Fluoxetine HCl (PROzac) 20 mg DAILY PO 06/01/20 09:00 06/01/20 15:33 DC 06/01/20 08:28 Home Med (Med Rec Complete!) ASDIRECTED XX 05/23/20 16:30 05/23/20 16:30 DC Ibuprofen (Advil) 400 mg Q6HP PRN PO PAIN 05/23/20 19:15 05/30/20 20:05 Magnesium Hydroxide (Milk Of Magnesia) 30 ml DAILYPRN PRN PO CONSTIPATION 05/23/20 19:15 Methylphenidate HCl (Ritalin) 5 mg QAM PO 06/02/20 09:00 06/07/20 08:28 DC 06/06/20 08:31 Miscellaneous (Unresolved Clarification Entry) SEE LABEL COMMENTS DAILY XX 06/07/20 09:00 06/07/20 11:01 DC Multivitamins (Theragram-M) 1 tab DAILY PO 05/26/20 12:00 06/13/20 09:08 Nicotine (Nicoderm Cq 14mg) 1 patch DAILY TD 05/24/20 09:00 06/09/20 10:44 DC 06/06/20 08:30 Non-Formulary Medication ( See Comment Field Below ) SEE LABEL COMMENTS DAILY XX 06/01/20 09:00 06/03/20 10:07 DC Olanzapine (ZyPREXA ZYDIS) 5 mg Q6HP PRN PO ANXIETY/AGITATION 05/24/20 00:40 06/01/20 15:33 DC 05/26/20 22:17 Olanzapine (ZyPREXA ZYDIS) 5 mg STAT STAT PO 06/06/20 17:32 06/06/20 17:33 DC 06/06/20 17:40 Olanzapine (ZyPREXA ZYDIS) 10 mg STAT STAT PO 05/24/20 00:37 05/24/20 00:39 DC 05/24/20 00:48 Omeprazole (PriLOSEC) 40 mg DAILY PO 05/25/20 09:00 06/13/20 09:08 Propranolol HCl (Inderal) 20 mg BID PO 06/06/20 21:00 06/13/20 09:06 Propranolol HCl (Inderal) 20 mg TID PO 05/23/20 21:00 06/06/20 17:30 DC 06/06/20 08:31 Quetiapine Fumarate (SEROquel) 25 mg QHS PO 06/07/20 21:00 06/08/20 20:02 Senna (Senokot) 1 tab DAILY PO 06/07/20 09:00 06/13/20 09:08 Sucralfate (Carafate Suspension) 1 gm AC PO 05/24/20 07:30 06/13/20 06:35 Sucralfate (Carafate) 1 gm AC PO 05/23/20 17:30 05/24/20 07:41 DC 05/23/20 19:15 Trazodone HCl (Desyrel) 50 mg QHSP PRN PO INSOMNIA 05/23/20 19:15 06/08/20 08:44 DC 06/04/20 23:21 Valsartan (Diovan) 160 mg DAILY PO 05/25/20 09:00 06/13/20 09:07 Allergies Coded Allergies: Penicillins (Verified Allergy, Intermediate, HIVES, 04/09/20) ANTONY ZALDIVAR NP June 14, 2020 08:21
[2020-06-14] MEDS: QUEtiapine FUMARATE 25 MG TAB PO SCH (21:39)
[2020-06-15] MEDS: SUCRALFATE SUSP 1GM/10ML UD PO SCH ×3 (07:30→17:10)
[2020-06-15] MEDS: PROPRANOLOL 20 MG TAB PO SCH ×2 (08:27→21:00)
[2020-06-15] MEDS: OMEPRAZOLE 20 MG CAP PO SCH (08:27)
[2020-06-15] MEDS: SENNA 8.6 MG TAB (SENOKOT) PO SCH (08:27)
[2020-06-15] MEDS: MULTIVITAMINS/MINERALS THERAP 1 TAB PO SCH (08:27)
[2020-06-15] MEDS: ASPIRIN 81MG ENTERIC TABLET PO SCH (08:27)
[2020-06-15] MEDS: FLUoxetine 10 MG CAP PO SCH (08:27)
[2020-06-15] MEDS: VALSARTAN 80 MG TAB (DIOVAN) PO SCH (08:27)
--- NOTE | 2020-06-15 13:30 | MHIPN ---
[facility] PROGRESS NOTE DATE: 06/15/2020 VITAL SIGNS: Blood pressure 127/86, pulse 72, temperature 98.5. CHIEF COMPLAINT: Says he feels okay. SUBJECTIVE: This is a video assessment. He is in the inpatient unit. I am in the clinic. He is seen in the presence of staff. He says he has been doing okay but does not offer much else. Says moods are good and that he has just had lunch and that he sleeps well. MENTAL STATUS EXAMINATION: He is lying in bed, guarded. No agitation. No psychomotor retardation at present. Gives mostly one-word answers. Denies thoughts of harming himself or anyone else. Judgment and insight are compromised. ASSESSMENT: 1. Major depressive disorder with psychotic features. 2. Generalized anxiety disorder. PLAN: Continue current care, observation. Encourage participation in activities in the units.
[2020-06-15 17:37] VITALS: BP 101/63
[2020-06-15] MEDS: QUEtiapine FUMARATE 25 MG TAB PO SCH (21:00)
[2020-06-16 06:21] VITALS: BP 104/65
[2020-06-16] MEDS: SUCRALFATE SUSP 1GM/10ML UD PO SCH (07:30)
[2020-06-16] MEDS: PROPRANOLOL 20 MG TAB PO SCH ×2 (08:43→21:41)
[2020-06-16] MEDS: VALSARTAN 80 MG TAB (DIOVAN) PO SCH (08:43)
[2020-06-16] MEDS: ASPIRIN 81MG ENTERIC TABLET PO SCH (08:43)
[2020-06-16] MEDS: FLUoxetine 10 MG CAP PO SCH (08:44)
[2020-06-16] MEDS: SENNA 8.6 MG TAB (SENOKOT) PO SCH (08:44)
[2020-06-16] MEDS: OMEPRAZOLE 20 MG CAP PO SCH (08:44)
[2020-06-16] MEDS: MULTIVITAMINS/MINERALS THERAP 1 TAB PO SCH (08:44)
[2020-06-16 18:54] VITALS: BP 118/79
[2020-06-16] MEDS: QUEtiapine FUMARATE 25 MG TAB PO SCH (21:42)
[2020-06-17 06:06] VITALS: BP 141/82
[2020-06-17] MEDS: VALSARTAN 80 MG TAB (DIOVAN) PO SCH ×2 (09:00→14:51)
[2020-06-17] MEDS: PROPRANOLOL 20 MG TAB PO SCH ×3 (09:00→20:48)
[2020-06-17] MEDS: MULTIVITAMINS/MINERALS THERAP 1 TAB PO SCH ×2 (09:00→14:52)
[2020-06-17] MEDS: CYANOCOBALAMIN 1,000MCG/ML VIAL (J3420) SC SCH (09:00)
[2020-06-17] MEDS: OMEPRAZOLE 20 MG CAP PO SCH ×2 (09:00→14:52)
[2020-06-17] MEDS: ASPIRIN 81MG ENTERIC TABLET PO SCH ×2 (09:00→14:51)
[2020-06-17] MEDS: SENNA 8.6 MG TAB (SENOKOT) PO SCH (09:00)
--- NOTE | 2020-06-17 12:25 | MHIPN ---
[facility] PROGRESS NOTE DATE: 06/04/2020 I was due to see the patient via video. I was in the clinic, and he is at the inpatient unit. Staff informed him, but he declined to see me. He indicated at the time he was waiting for dinner, which was not due at that time.
--- NOTE | 2020-06-17 12:34 | MHIPN ---
[facility] PROGRESS [facility] DATE: 06/17/2020 I am assigned to his care today, June 17. I am due to see him via video. I am in the clinic. He is in the inpatient unit. Staff has asked him, but he has declined to see me once again. We will continue with current care.
[2020-06-17] MEDS: FLUoxetine 10 MG CAP PO SCH (14:07)
[2020-06-17] MEDS: ALBUTEROL 90 MCG/ACT 8GM HFA INHALER INH PRN (14:54)
--- NOTE | 2020-06-17 15:49 | MHIPNPDOC ---
[facility] Progress Note Progress Note DATE OF SERVICE: 06/17/20 HISTORY: Patient is a 55 -year-old , Retired/Disabled, Domiciled, , male, who was brought to reports that he was depressed and had poor sleep and was suicidal. "I took a knife to my throat because I was not getting enough sleep." When asked again why he was brought to the hospital patient states "I had difficulty breathing." This is patient's 3rd hospitalization in psychiatry, and he has had over 20+ ED visits since July 2019. Patient had a hospitalization in February 2020 (02/29/20-03/02/20) for Acute Encephalopathy with an admission to psychiatry 03/02/20-03/07/20. He was recently admitted and discharged from this facility from 04/09/20-05/02/20. Patient appears to have poor recall of the events leading up to this hospitalization, he does report depression with suicidal ideation but cannot clarify his stressors. According to his , he had only one solid day of good cognitive functioning and has declined since his discharge. VITAL SIGNS: See below. CURRENT MEDICATIONS: See below. MENTAL STATUS EXAMINATION: Patient is a 55 -year-old , Retired/Disabled, Domiciled, , male, who was brought to reports that he was depressed and had poor sleep and was suicidal. Patient continues to be disheveled in appearance, His hygiene and grooming is unkempt. When encouraged to attend to these needs, he is dismissive according to staff. intermittent eye contact Speech: Low volume and tone, refusing to meet with provider - "I will see you after I eat my lunch" Language skills are intact Thought processes including: Disorganized, dismissive, disengaged Thought content: denies depression and anxiety( Appears very depressed) denies suicidal thinking Abstract reasoning, and computation: impaired Description of associations: unable to assess Description of abnormal or psychotic thoughts: unable to assess Judgment: impaired Insight: impaired Orientation: alert Recent and remote memory: impaired Attention span and concentration: poor Language: minimal Fund of knowledge: below average at times Mood: depressive symptoms, dismissive Affect: Flat DIAGNOSES: Major Depressive Disorder with psychotic features HTN Generalized anxiety disorder ASSESSMENT: Patient out in the milieu. Refusing to meet with provider, states that he wants to have his lunch first and will meet with provider afterwards. When provider insists on interviewing him, he becomes very agitated and irritable and states "I said I will meet with you after lunch!" Staff reports that patient has been agitated for several days, dismissive and not engaged in treatment modalities. He is not attending to ADLS, not social with peers, he is not conversant with peers, doesn't offer any complaints or report any pain, he is quite apathetic and dysphoric. Report given to Dr. Patel at [facility] - he was given an extensive history of patient current presentation including history of past hospitalizations. Reported to patient that although there is no psychotic symptoms observed patient has been very agitated with staff trying to meet with him daily and psychosis is not observed but patient remains depressed, dysthymic, dysphoric, apathetic and dismissive. Dr. Patel is willing to transfer patient to [facility] They are requesting a Treatment over Objection. MANAGEMENT PLAN: Continue will all his medication. Pending transfer to [facility] TIME SPENT: 45 minutes. Vital Signs Vital Signs Date Time Temp Pulse Resp B/P (MAP) Pulse Ox O2 Delivery O2 Flow Rate FiO2 06/17/20 14:51 90 141/82 06/17/20 09:48 Room Air 06/17/20 06:06 98.4 16 99 Current Medications Current Medications Medications (Trade) Dose Ordered Sig/Shanell Route PRN Reason Start Time Stop Time Status Last Admin Dose Admin Al Hydrox/Mg Hydrox/Simethicone (Mylanta) 30 ml Q4HP PRN PO HEARTBURN/INDIGESTION 05/23/20 19:15 05/29/20 19:38 Albuterol Sulfate (Proventil, Ventolin Hfa) 2 puff QID PRN INH SOB/WHEEZING 05/23/20 19:15 06/17/20 14:54 Amlodipine Besylate (Norvasc) 5 mg DAILY PO 05/24/20 17:40 06/06/20 17:30 DC 06/06/20 08:31 Aspirin (Ecotrin) 81 mg DAILY PO 05/24/20 09:00 06/17/20 14:51 Cyanocobalamin (Vitamin B12 Injection) 1,000 mcg Q7D@ [place] 05/27/20 09:00 06/03/20 10:00 Fluoxetine HCl (PROzac) 10 mg DAILY PO 05/24/20 09:00 05/31/20 16:48 DC 05/31/20 09:41 Fluoxetine HCl (PROzac) 10 mg DAILY PO 06/07/20 09:00 06/17/20 14:07 Fluoxetine HCl (PROzac) 20 mg DAILY PO 06/01/20 09:00 06/01/20 15:33 DC 06/01/20 08:28 Home Med (Med Rec Complete!) ASDIRECTED XX 05/23/20 16:30 05/23/20 16:30 DC Ibuprofen (Advil) 400 mg Q6HP PRN PO PAIN 05/23/20 19:15 05/30/20 20:05 Magnesium Hydroxide (Milk Of Magnesia) 30 ml DAILYPRN PRN PO CONSTIPATION 05/23/20 19:15 Methylphenidate HCl (Ritalin) 5 mg QAM PO 06/02/20 09:00 06/07/20 08:28 DC 06/06/20 08:31 Miscellaneous (Unresolved Clarification Entry) SEE LABEL COMMENTS DAILY XX 06/07/20 09:00 06/07/20 11:01 DC Multivitamins (Theragram-M) 1 tab DAILY PO 05/26/20 12:00 06/17/20 14:52 Nicotine (Nicoderm Cq 14mg) 1 patch DAILY TD 05/24/20 09:00 06/09/20 10:44 DC 06/06/20 08:30 Non-Formulary Medication ( See Comment Field Below ) SEE LABEL COMMENTS DAILY XX 06/01/20 09:00 06/03/20 10:07 DC Olanzapine (ZyPREXA ZYDIS) 5 mg Q6HP PRN PO ANXIETY/AGITATION 05/24/20 00:40 06/01/20 15:33 DC 05/26/20 22:17 Olanzapine (ZyPREXA ZYDIS) 5 mg STAT STAT PO 06/06/20 17:32 06/06/20 17:33 DC 06/06/20 17:40 Olanzapine (ZyPREXA ZYDIS) 10 mg STAT STAT PO 05/24/20 00:37 05/24/20 00:39 DC 05/24/20 00:48 Omeprazole (PriLOSEC) 40 mg DAILY PO 05/25/20 09:00 06/17/20 14:52 Propranolol HCl (Inderal) 20 mg BID PO 06/06/20 21:00 06/17/20 14:51 Propranolol HCl (Inderal) 20 mg TID PO 05/23/20 21:00 06/06/20 17:30 DC 06/06/20 08:31 Quetiapine Fumarate (SEROquel) 25 mg QHS PO 06/07/20 21:00 06/14/20 21:39 Senna (Senokot) 1 tab DAILY PO 06/07/20 09:00 06/16/20 08:44 Sucralfate (Carafate Suspension) 1 gm AC PO 05/24/20 07:30 06/16/20 09:11 DC 06/13/20 06:35 Sucralfate (Carafate) 1 gm AC PO 05/23/20 17:30 05/24/20 07:41 DC 05/23/20 19:15 Trazodone HCl (Desyrel) 50 mg QHSP PRN PO INSOMNIA 05/23/20 19:15 06/08/20 08:44 DC 06/04/20 23:21 Valsartan (Diovan) 160 mg DAILY PO 05/25/20 09:00 06/17/20 14:51 Allergies Coded Allergies: Penicillins (Verified Allergy, Intermediate, HIVES, 04/09/20) ANTONY ZALDIVAR NP June 17, 2020 15:12
[2020-06-17] MEDS: QUEtiapine FUMARATE 25 MG TAB PO SCH (20:48)
[2020-06-18 06:34] VITALS: BP 115/74
[2020-06-18] MEDS: ASPIRIN 81MG ENTERIC TABLET PO SCH (08:02)
[2020-06-18] MEDS: PROPRANOLOL 20 MG TAB PO SCH ×2 (08:02→19:56)
[2020-06-18] MEDS: FLUoxetine 10 MG CAP PO SCH (08:02)
[2020-06-18] MEDS: MULTIVITAMINS/MINERALS THERAP 1 TAB PO SCH (08:02)
[2020-06-18] MEDS: VALSARTAN 80 MG TAB (DIOVAN) PO SCH (08:02)
[2020-06-18] MEDS: SENNA 8.6 MG TAB (SENOKOT) PO SCH (08:02)
[2020-06-18] MEDS: OMEPRAZOLE 20 MG CAP PO SCH (08:02)
[2020-06-18 17:41] VITALS: BP 127/88
[2020-06-18] MEDS: QUEtiapine FUMARATE 25 MG TAB PO SCH (19:56)
[2020-06-19 05:32] VITALS: BP 116/62
[2020-06-19] MEDS: PROPRANOLOL 20 MG TAB PO SCH ×3 (09:00→21:00)
[2020-06-19] MEDS: VALSARTAN 80 MG TAB (DIOVAN) PO SCH ×2 (09:00→09:23)
[2020-06-19] MEDS: FLUoxetine 10 MG CAP PO SCH ×2 (09:00→09:23)
[2020-06-19] MEDS: MULTIVITAMINS/MINERALS THERAP 1 TAB PO SCH ×2 (09:00→09:22)
[2020-06-19] MEDS: OMEPRAZOLE 20 MG CAP PO SCH ×2 (09:00→09:22)
[2020-06-19] MEDS: SENNA 8.6 MG TAB (SENOKOT) PO SCH ×2 (09:00→09:22)
[2020-06-19] MEDS: ASPIRIN 81MG ENTERIC TABLET PO SCH ×2 (09:00→09:23)
[2020-06-19] MEDS: QUEtiapine FUMARATE 25 MG TAB PO SCH (21:00)
[2020-06-20] MEDS: VALSARTAN 80 MG TAB (DIOVAN) PO SCH (09:00)
[2020-06-20] MEDS: ASPIRIN 81MG ENTERIC TABLET PO SCH (09:00)
[2020-06-20] MEDS: SENNA 8.6 MG TAB (SENOKOT) PO SCH (09:00)
[2020-06-20] MEDS: MULTIVITAMINS/MINERALS THERAP 1 TAB PO SCH (09:00)
[2020-06-20] MEDS: OMEPRAZOLE 20 MG CAP PO SCH (09:00)
[2020-06-20] MEDS: PROPRANOLOL 20 MG TAB PO SCH ×2 (09:00→20:06)
[2020-06-20] MEDS: FLUoxetine 10 MG CAP PO SCH (09:06)
--- NOTE | 2020-06-20 14:55 | MHIPNPDOC ---
[facility] Progress Note Progress Note DATE OF SERVICE: 06/20/20 Patient was seen by the [facility] for the first time today for evaluation and daily, round. This is his third inpatient admission since February of this year and jennifer rakel to again remained extremely withdrawn, regressed, and the grossly paranoid. On examination, patient claims that he is doing fine and he doesn't know why he is in hospital and states that the never made the threats of stabbing himself and denies any active suicidal or plan or intent. Patient, however, appears perplexed, blunted, preoccupied with the popliteal thoughts and not able to give any coherent history and doesn't appear to have any insight. He was most recently prescribed Prozac 10 mg daily and quetiapine 25 mg at bedtime. We'll reportedly has been taking it but showing no significant change. HISTORY: Patient does not have any significant psychiatric history until 2019 when he had the first inpatient treatment and he was admitted in February 2020, with the blood is described as encephalopathy. He does not have the typical or history of schizophrenia and there isn't no known manic episode, so his diagnosis is somewhat unclear, although it could be a major depression. His psychotic feature or late onset. Schizoaffective disorder. Based on his primary symptoms of severe depression and psychosis. VITAL SIGNS: See below. NEW TEST RESULTS: . CURRENT MEDICATIONS: See below. MENTAL STATUS EXAMINATION: Speech: Is not productive, not spontaneous, and the not able to initiate any conversations. Showing poverty of thoughts Language skills are . Thought processes including: Relevant, but not productive with a marked poverty of thoughts Thought content: . Abstract reasoning, and computation: . Description of associations: . Description of abnormal or psychotic thoughts: Patient has a marked somatic Delusions and preoccupations and they expressed the thoughts of the stabbing himself Judgment: Poor Insight: Extremely poor. Orientation: He knows he is in hospital Recent and remote memory: Reports he doesn't know why he is in hospital Attention span and concentration: Extremely poor Language: . Fund of knowledge: Very limited Mood: . Affect: . DIAGNOSES: 1. Schizoaffective disorder 2. , Rule out major depression. His psychotic feature, severe 3. . ASSESSMENT: MANAGEMENT PLAN: Continue the supportive therapy and try to stabilize with medications TIME SPENT: 20 minutes. Vital Signs Vital Signs Date Time Temp Pulse Resp B/P (MAP) Pulse Ox O2 Delivery O2 Flow Rate FiO2 06/19/20 09:00 68 116/62 06/19/20 05:32 97.5 16 100 Room Air Current Medications Current Medications Medications (Trade) Dose Ordered Sig/Shanell Route PRN Reason Start Time Stop Time Status Last Admin Dose Admin Al Hydrox/Mg Hydrox/Simethicone (Mylanta) 30 ml Q4HP PRN PO HEARTBURN/INDIGESTION 05/23/20 19:15 05/29/20 19:38 Albuterol Sulfate (Proventil, Ventolin Hfa) 2 puff QID PRN INH SOB/WHEEZING 05/23/20 19:15 06/17/20 14:54 Amlodipine Besylate (Norvasc) 5 mg DAILY PO 05/24/20 17:40 06/06/20 17:30 DC 06/06/20 08:31 Aspirin (Ecotrin) 81 mg DAILY PO 05/24/20 09:00 06/18/20 08:02 Cyanocobalamin (Vitamin B12 Injection) 1,000 mcg Q7D@09 [place] 05/27/20 09:00 06/03/20 10:00 Fluoxetine HCl (PROzac) 10 mg DAILY PO 05/24/20 09:00 05/31/20 16:48 DC 05/31/20 09:41 Fluoxetine HCl (PROzac) 10 mg DAILY PO 06/07/20 09:00 06/20/20 09:06 Fluoxetine HCl (PROzac) 20 mg DAILY PO 06/01/20 09:00 06/01/20 15:33 DC 06/01/20 08:28 Home Med (Med Rec Complete!) ASDIRECTED XX 05/23/20 16:30 05/23/20 16:30 DC Ibuprofen (Advil) 400 mg Q6HP PRN PO PAIN 05/23/20 19:15 05/30/20 20:05 Magnesium Hydroxide (Milk Of Magnesia) 30 ml DAILYPRN PRN PO CONSTIPATION 05/23/20 19:15 Methylphenidate HCl (Ritalin) 5 mg QAM PO 06/02/20 09:00 06/07/20 08:28 DC 06/06/20 08:31 Miscellaneous (Unresolved Clarification Entry) SEE LABEL COMMENTS DAILY XX 06/07/20 09:00 06/07/20 11:01 DC Miscellaneous (Unresolved Clarification Entry) SEE LABEL COMMENTS DAILY XX 06/20/20 09:00 Multivitamins (Theragram-M) 1 tab DAILY PO 05/26/20 12:00 06/18/20 08:02 Nicotine (Nicoderm Cq 14mg) 1 patch DAILY TD 05/24/20 09:00 06/09/20 10:44 DC 06/06/20 08:30 Non-Formulary Medication ( See Comment Field Below ) SEE LABEL COMMENTS DAILY XX 06/01/20 09:00 06/03/20 10:07 DC Olanzapine (ZyPREXA ZYDIS) 5 mg Q6HP PRN PO ANXIETY/AGITATION 05/24/20 00:40 06/01/20 15:33 DC 05/26/20 22:17 Olanzapine (ZyPREXA ZYDIS) 5 mg STAT STAT PO 06/06/20 17:32 06/06/20 17:33 DC 06/06/20 17:40 Olanzapine (ZyPREXA ZYDIS) 10 mg STAT STAT PO 05/24/20 00:37 05/24/20 00:39 DC 05/24/20 00:48 Omeprazole (PriLOSEC) 40 mg DAILY PO 05/25/20 09:00 06/18/20 08:02 Propranolol HCl (Inderal) 20 mg BID PO 06/06/20 21:00 06/18/20 19:56 Propranolol HCl (Inderal) 20 mg TID PO 05/23/20 21:00 06/06/20 17:30 DC 06/06/20 08:31 Quetiapine Fumarate (SEROquel) 25 mg QHS PO 06/07/20 21:00 06/18/20 19:56 Senna (Senokot) 1 tab DAILY PO 06/07/20 09:00 06/18/20 08:02 Sucralfate (Carafate Suspension) 1 gm AC PO 05/24/20 07:30 06/16/20 09:11 DC 06/13/20 06:35 Sucralfate (Carafate) 1 gm AC PO 05/23/20 17:30 05/24/20 07:41 DC 05/23/20 19:15 Trazodone HCl (Desyrel) 50 mg QHSP PRN PO INSOMNIA 05/23/20 19:15 06/08/20 08:44 DC 06/04/20 23:21 Valsartan (Diovan) 160 mg DAILY PO 05/25/20 09:00 06/18/20 08:02 Allergies Coded Allergies: Penicillins (Verified Allergy, Intermediate, HIVES, 04/09/20) SCARLETT STRONG M.D. June 20, 2020 14:55
[2020-06-20 16:12] VITALS: BP 104/65
[2020-06-20] MEDS: QUEtiapine FUMARATE 25 MG TAB PO SCH (20:06)
[2020-06-21 06:40] VITALS: BP 140/62
[2020-06-21] MEDS: MULTIVITAMINS/MINERALS THERAP 1 TAB PO SCH (08:41)
[2020-06-21] MEDS: OMEPRAZOLE 20 MG CAP PO SCH (08:41)
[2020-06-21] MEDS: FLUoxetine 10 MG CAP PO SCH (08:41)
[2020-06-21] MEDS: VALSARTAN 80 MG TAB (DIOVAN) PO SCH (08:41)
[2020-06-21] MEDS: PROPRANOLOL 20 MG TAB PO SCH ×2 (08:41→19:56)
[2020-06-21] MEDS: ASPIRIN 81MG ENTERIC TABLET PO SCH (08:42)
[2020-06-21] MEDS: SENNA 8.6 MG TAB (SENOKOT) PO SCH (08:42)
--- NOTE | 2020-06-21 12:32 | MHIPNPDOC ---
[facility] Progress Note Progress Note DATE OF SERVICE: 06/21/20 The patient was seen for daily, round, and the case was discussed in the treatment team meeting. On examination, the patient is extremely preoccupied with the idea of going home today. Patient states that that he is doing wonderful. He is eating good, sleeping good and his is waiting for him to return home today and almost demanding discharge. Patient is basically showing no significant improvement, has absolutely no insight and his cooperation, his treatment is minimal and he is in need of long-term stabilization. He has been referred to critical access hospital institution and is probably going to need a treatment over objection, although due to his frequent refusal to take medication. HISTORY: . VITAL SIGNS: See below. NEW TEST RESULTS: . CURRENT MEDICATIONS: See below. MENTAL STATUS EXAMINATION: Speech: Is [pressured and already preoccupied about being discharged today and unable to engage in any coherent conversation.]. Language skills are [, poor]. Thought processes including: [Extremely preoccupied, unable to respond properly]. Thought content: Preoccupied with the discharge or any . Abstract reasoning, and computation: [place] and very poor. Description of associations: [Loose and disorganized]. Description of abnormal or psychotic thoughts: [Remains grossly delusional or and disorganized]. Judgment: [, Very poor]. Insight: [very poor]. Orientation: [Appears to be oriented]. Recent and remote memory: [, Very poor]. Attention span and concentration: [, Very poor]. Language: . Fund of knowledge: [, Very poor]. Mood: [, Anxious, preoccupied]. Affect: [, Blunted, preoccupied, labile]. DIAGNOSES: 1. . Schizoaffective disorder 2. . 3. . ASSESSMENT: MANAGEMENT PLAN: [Transfer to long-term institution and initiate treatment over objection]. TIME SPENT: [20] minutes. Vital Signs Vital Signs Date Time Temp Pulse Resp B/P (MAP) Pulse Ox O2 Delivery O2 Flow Rate FiO2 06/21/20 08:41 76 120/85 06/21/20 06:40 98.5 16 98 Room Air Current Medications Current Medications Medications (Trade) Dose Ordered Sig/Shanell Route PRN Reason Start Time Stop Time Status Last Admin Dose Admin Al Hydrox/Mg Hydrox/Simethicone (Mylanta) 30 ml Q4HP PRN PO HEARTBURN/INDIGESTION 05/23/20 19:15 05/29/20 19:38 Albuterol Sulfate (Proventil, Ventolin Hfa) 2 puff QID PRN INH SOB/WHEEZING 05/23/20 19:15 06/17/20 14:54 Amlodipine Besylate (Norvasc) 5 mg DAILY PO 05/24/20 17:40 06/06/20 17:30 DC 06/06/20 08:31 Aspirin (Ecotrin) 81 mg DAILY PO 05/24/20 09:00 06/21/20 08:42 Cyanocobalamin (Vitamin B12 Injection) 1,000 mcg Q7D@ [place] 05/27/20 09:00 06/03/20 10:00 Fluoxetine HCl (PROzac) 10 mg DAILY PO 05/24/20 09:00 05/31/20 16:48 DC 05/31/20 09:41 Fluoxetine HCl (PROzac) 10 mg DAILY PO 06/07/20 09:00 06/21/20 08:41 Fluoxetine HCl (PROzac) 20 mg DAILY PO 06/01/20 09:00 06/01/20 15:33 DC 06/01/20 08:28 Home Med (Med Rec Complete!) ASDIRECTED XX 05/23/20 16:30 05/23/20 16:30 DC Ibuprofen (Advil) 400 mg Q6HP PRN PO PAIN 05/23/20 19:15 05/30/20 20:05 Magnesium Hydroxide (Milk Of Magnesia) 30 ml DAILYPRN PRN PO CONSTIPATION 05/23/20 19:15 Methylphenidate HCl (Ritalin) 5 mg QAM PO 06/02/20 09:00 06/07/20 08:28 DC 06/06/20 08:31 Miscellaneous (Unresolved Clarification Entry) SEE LABEL COMMENTS DAILY XX 06/07/20 09:00 06/07/20 11:01 DC Miscellaneous (Unresolved Clarification Entry) SEE LABEL COMMENTS DAILY XX 06/20/20 09:00 06/21/20 11:29 DC Multivitamins (Theragram-M) 1 tab DAILY PO 05/26/20 12:00 06/21/20 08:41 Nicotine (Nicoderm Cq 14mg) 1 patch DAILY TD 05/24/20 09:00 06/09/20 10:44 DC 06/06/20 08:30 Non-Formulary Medication ( See Comment Field Below ) SEE LABEL COMMENTS DAILY XX 06/01/20 09:00 06/03/20 10:07 DC Olanzapine (ZyPREXA ZYDIS) 5 mg Q6HP PRN PO ANXIETY/AGITATION 05/24/20 00:40 06/01/20 15:33 DC 05/26/20 22:17 Olanzapine (ZyPREXA ZYDIS) 5 mg STAT STAT PO 06/06/20 17:32 06/06/20 17:33 DC 06/06/20 17:40 Olanzapine (ZyPREXA ZYDIS) 10 mg STAT STAT PO 05/24/20 00:37 05/24/20 00:39 DC 05/24/20 00:48 Omeprazole (PriLOSEC) 40 mg DAILY PO 05/25/20 09:00 06/21/20 08:41 Propranolol HCl (Inderal) 20 mg BID PO 06/06/20 21:00 06/21/20 08:41 Propranolol HCl (Inderal) 20 mg TID PO 05/23/20 21:00 06/06/20 17:30 DC 06/06/20 08:31 Quetiapine Fumarate (SEROquel) 25 mg QHS PO 06/07/20 21:00 06/20/20 20:06 Senna (Senokot) 1 tab DAILY PO 06/07/20 09:00 06/21/20 08:42 Sucralfate (Carafate Suspension) 1 gm AC PO 05/24/20 07:30 06/16/20 09:11 DC 06/13/20 06:35 Sucralfate (Carafate) 1 gm AC PO 05/23/20 17:30 05/24/20 07:41 DC 05/23/20 19:15 Trazodone HCl (Desyrel) 50 mg QHSP PRN PO INSOMNIA 05/23/20 19:15 06/08/20 08:44 DC 06/04/20 23:21 Valsartan (Diovan) 160 mg DAILY PO 05/25/20 09:00 06/21/20 08:41 Allergies Coded Allergies: Penicillins (Verified Allergy, Intermediate, HIVES, 04/09/20) SCARLETT STRONG M.D. June 21, 2020 12:32
[2020-06-21 16:12] VITALS: BP 114/68
[2020-06-21] MEDS: QUEtiapine FUMARATE 25 MG TAB PO SCH (19:56)
[2020-06-22 06:15] VITALS: BP 108/61
[2020-06-22] MEDS: ASPIRIN 81MG ENTERIC TABLET PO SCH (08:54)
[2020-06-22] MEDS: MULTIVITAMINS/MINERALS THERAP 1 TAB PO SCH (08:54)
[2020-06-22] MEDS: OMEPRAZOLE 20 MG CAP PO SCH (08:54)
[2020-06-22] MEDS: FLUoxetine 10 MG CAP PO SCH (08:55)
[2020-06-22] MEDS: PROPRANOLOL 20 MG TAB PO SCH ×2 (08:55→22:00)
[2020-06-22] MEDS: VALSARTAN 80 MG TAB (DIOVAN) PO SCH (08:55)
[2020-06-22] MEDS: SENNA 8.6 MG TAB (SENOKOT) PO SCH (08:55)
[2020-06-22 10:35] LABS: HEMATOCRIT 39.3 % (42.0-52.0); HEMOGLOBIN 12.8 g/dl (13.5-17.5); MEAN CORPUSCULAR HEMOGLOBIN 32.6 pg (27.0-33.0); MEAN CORPUSCULAR HGB CONC 32.6 g/dl (32.0-36.5); PLATELET COUNT, AUTOMATED 205 10^3/uL (150-450); RED BLOOD COUNT 3.93 10^6/uL (4.30-6.10); WHITE BLOOD COUNT 5.5 10^3/uL (4.0-10.0)
[2020-06-22 10:52] LABS: ATYPICAL LYMPH 7 % (0-5); BASOPHILS 2 % (0-1); LYMPHOCYTES 26 % (16-44); MONOCYTES 2 % (0-5); NEUTROPHILS 63 % (28-66)
[2020-06-22 10:53] LABS: ANISOCYTOSIS 1+; PLATELET ESTIMATE NORMAL (NORMAL)
[2020-06-22 10:59] LABS: ALBUMIN 3.7 GM/DL (3.2-5.2); ALT/SGPT 25 U/L (12-78); BILIRUBIN,TOTAL 0.3 MG/DL (0.2-1.0); BLOOD UREA NITROGEN 23 MG/DL (7-18); CARBON DIOXIDE LEVEL 33 MEQ/L (21-32); CHLORIDE LEVEL 105 MEQ/L (98-107); GLOMERULAR FILTRATION RATE > 60.0 (>56); GLUCOSE, FASTING 100 MG/DL (70-100); POTASSIUM SERUM 4.6 MEQ/L (3.5-5.1); SODIUM LEVEL 140 MEQ/L (136-145); TOTAL PROTEIN 6.6 GM/DL (6.4-8.2)
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
[2020-06-22 16:09] VITALS: BP 94/56
[2020-06-22] MEDS: OLANZapine 5 MG TAB PO SCH (22:00)
[2020-06-23 06:12] VITALS: BP 113/58
[2020-06-23] MEDS: PROPRANOLOL 20 MG TAB PO SCH ×3 (08:23→21:40)
[2020-06-23] MEDS: SENNA 8.6 MG TAB (SENOKOT) PO SCH (08:24)
[2020-06-23] MEDS: VALSARTAN 80 MG TAB (DIOVAN) PO SCH (08:24)
[2020-06-23] MEDS: ASPIRIN 81MG ENTERIC TABLET PO SCH (08:24)
[2020-06-23] MEDS: MULTIVITAMINS/MINERALS THERAP 1 TAB PO SCH (08:24)
[2020-06-23] MEDS: FLUoxetine 20 MG CAP PO SCH (08:24)
[2020-06-23] MEDS: OMEPRAZOLE 20 MG CAP PO SCH (08:24)
[2020-06-23] MEDS ORDERED: fentaNYL 100 MCG/2 ML INJECTION (J3010) IV PRN (12:30)
[2020-06-23] MEDS ORDERED: ONDANSETRON 4MG/2ML VIAL IV PRN (12:30)
[2020-06-23] MEDS ORDERED: LR 1,000 ML IV SCH (12:30)
[2020-06-23] MEDS ORDERED: oxyCODONE 5MG TAB PO PRN (12:30)
--- NOTE | 2020-06-23 12:53 | MHIPNPDOC ---
[facility] Progress Note Progress Note DATE OF SERVICE: 06/23/20 After he promised that he will fully cooperate with the medicine he apparently failed to take nighttime medicine of Zyprexa. When confronted about this. Patien t states that he meant to take all the medicine and still willing to comply with the medication and doesn't know how it happened. The patient is agreeable to take increased dose of Zyprexa. States that he is willing to do so and did cooperate with the morning dose after it was increased to 5 mg twice a day. He is otherwise eating and sleeping okay and the behavior is under control and his mental status remained extremely guarded, blunted, preoccupied with no insight and no significant improvement. HISTORY: . VITAL SIGNS: See below. NEW TEST RESULTS: . CURRENT MEDICATIONS: See below. MENTAL STATUS EXAMINATION: Speech: Is , relevant, but not productive. Language skills are fair. Thought processes including: Superficial with a marked poverty of thoughts. Thought content: Minimally productive. Abstract reasoning, and computation: For. Description of associations: , Poor. Description of abnormal or psychotic thoughts: Denies any problems and very guarded, evasive, superficial. Judgment: , Poor. Insight: very poor. Orientation: Fair. Recent and remote memory: For. Attention span and concentration: Poor . Language: . Fund of knowledge: Below average. Mood: Appears anxious and preoccupied. Affect: Blunted and inappropriate. DIAGNOSES: 1. . Major depression. His psychotic feature 2. . 3. . ASSESSMENT: MANAGEMENT PLAN: . Continue with the current medications. Zyprexa is increased to 5 mg twice a day. TIME SPENT: 20 minutes. Vital Signs Vital Signs Date Time Temp Pulse Resp B/P (MAP) Pulse Ox O2 Delivery O2 Flow Rate FiO2 06/23/20 08:24 122/66 06/23/20 08:23 76 06/23/20 06:12 97.5 20 98 Room Air Current Medications Current Medications Medications (Trade) Dose Ordered Sig/Shanell Route PRN Reason Start Time Stop Time Status Last Admin Dose Admin Al Hydrox/Mg Hydrox/Simethicone (Mylanta) 30 ml Q4HP PRN PO HEARTBURN/INDIGESTION 05/23/20 19:15 05/29/20 19:38 Albuterol Sulfate (Proventil, Ventolin Hfa) 2 puff QID PRN INH SOB/WHEEZING 05/23/20 19:15 06/17/20 14:54 Amlodipine Besylate (Norvasc) 5 mg DAILY PO 05/24/20 17:40 06/06/20 17:30 DC 06/06/20 08:31 Aspirin (Ecotrin) 81 mg DAILY PO 05/24/20 09:00 06/23/20 08:24 Cyanocobalamin (Vitamin B12 Injection) 1,000 mcg Q7D@09 [place] 05/27/20 09:00 06/03/20 10:00 Fentanyl Citrate (Sublimaze) 25 mcg Q5MP PRN IV PAIN LEVEL 5-10 06/23/20 12:30 06/23/20 14:30 UNV Fluoxetine HCl (PROzac) 10 mg DAILY PO 05/24/20 09:00 05/31/20 16:48 DC 05/31/20 09:41 Fluoxetine HCl (PROzac) 10 mg DAILY PO 06/07/20 09:00 06/22/20 12:12 DC 06/22/20 08:55 Fluoxetine HCl (PROzac) 20 mg DAILY PO 06/01/20 09:00 06/01/20 15:33 DC 06/01/20 08:28 Fluoxetine HCl (PROzac) 20 mg DAILY PO 06/23/20 09:00 06/23/20 08:24 Home Med (Med Rec Complete!) ASDIRECTED XX 05/23/20 16:30 05/23/20 16:30 DC Ibuprofen (Advil) 400 mg Q6HP PRN PO PAIN 05/23/20 19:15 05/30/20 20:05 Lactated Ringer's 1,000 ml @ 75 mls/hr [id number] IV 06/23/20 12:30 06/23/20 14:30 UNV Magnesium Hydroxide (Milk Of Magnesia) 30 ml DAILYPRN PRN PO CONSTIPATION 05/23/20 19:15 Methylphenidate HCl (Ritalin) 5 mg QAM PO 06/02/20 09:00 06/07/20 08:28 DC 06/06/20 08:31 Miscellaneous (Unresolved Clarification Entry) SEE LABEL COMMENTS DAILY XX 06/07/20 09:00 06/07/20 11:01 DC Miscellaneous (Unresolved Clarification Entry) SEE LABEL COMMENTS DAILY XX 06/20/20 09:00 06/21/20 11:29 DC Miscellaneous (Unresolved Clarification Entry) SEE LABEL COMMENTS DAILY XX 06/23/20 09:00 Multivitamins (Theragram-M) 1 tab DAILY PO 05/26/20 12:00 06/23/20 08:24 Nicotine (Nicoderm Cq 14mg) 1 patch DAILY TD 05/24/20 09:00 06/09/20 10:44 DC 06/06/20 08:30 Non-Formulary Medication ( See Comment Field Below ) SEE LABEL COMMENTS DAILY XX 06/01/20 09:00 06/03/20 10:07 DC Olanzapine (ZyPREXA ZYDIS) 5 mg Q6HP PRN PO ANXIETY/AGITATION 05/24/20 00:40 06/01/20 15:33 DC 05/26/20 22:17 Olanzapine (ZyPREXA ZYDIS) 5 mg STAT STAT PO 06/06/20 17:32 06/06/20 17:33 DC 06/06/20 17:40 Olanzapine (ZyPREXA ZYDIS) 10 mg STAT STAT PO 05/24/20 00:37 05/24/20 00:39 DC 05/24/20 00:48 Olanzapine (ZyPREXA) 5 mg QHS PO 06/22/20 21:00 Omeprazole (PriLOSEC) 40 mg DAILY PO 05/25/20 09:00 06/23/20 08:24 Ondansetron HCl (ZOFRAN INJection) 4 mg Q4HP PRN IV NAUSEA OR VOMITING 06/23/20 12:30 06/23/20 14:30 UNV Oxycodone HCl (Roxicodone, Oxyir) 5 mg ASDIRECTED PRN PO PAIN LEVEL 1-4 06/23/20 12:30 06/23/20 14:30 UNV Propranolol HCl (Inderal) 20 mg BID PO 06/06/20 21:00 06/23/20 08:23 Propranolol HCl (Inderal) 20 mg TID PO 05/23/20 21:00 06/06/20 17:30 DC 06/06/20 08:31 Quetiapine Fumarate (SEROquel) 25 mg QHS PO 06/07/20 21:00 06/22/20 12:12 DC 06/21/20 19:56 Senna (Senokot) 1 tab DAILY PO 06/07/20 09:00 06/23/20 08:24 Sucralfate (Carafate Suspension) 1 gm AC PO 05/24/20 07:30 06/16/20 09:11 DC 06/13/20 06:35 Sucralfate (Carafate) 1 gm AC PO 05/23/20 17:30 05/24/20 07:41 DC 05/23/20 19:15 Trazodone HCl (Desyrel) 50 mg QHSP PRN PO INSOMNIA 05/23/20 19:15 06/08/20 08:44 DC 06/04/20 23:21 Valsartan (Diovan) 160 mg DAILY PO 05/25/20 09:00 06/23/20 08:24 Allergies Coded Allergies: Penicillins (Verified Allergy, Intermediate, HIVES, 04/09/20) SCARLETT STRONG M.D. June 23, 2020 12:53
[2020-06-23 17:12] VITALS: BP 138/85
[2020-06-23] MEDS: OLANZapine 5 MG TAB PO SCH ×2 (20:42→21:40)
[2020-06-24 06:10] VITALS: BP 92/56
[2020-06-24] MEDS: CYANOCOBALAMIN 1,000MCG/ML VIAL (J3420) SC SCH (08:04)
[2020-06-24] MEDS: SENNA 8.6 MG TAB (SENOKOT) PO SCH (08:04)
[2020-06-24] MEDS: MULTIVITAMINS/MINERALS THERAP 1 TAB PO SCH (08:04)
[2020-06-24] MEDS: PROPRANOLOL 20 MG TAB PO SCH ×2 (08:04→20:00)
[2020-06-24] MEDS: OMEPRAZOLE 20 MG CAP PO SCH (08:04)
[2020-06-24] MEDS: FLUoxetine 20 MG CAP PO SCH (08:04)
[2020-06-24] MEDS: ASPIRIN 81MG ENTERIC TABLET PO SCH (08:04)
[2020-06-24] MEDS: VALSARTAN 80 MG TAB (DIOVAN) PO SCH (08:04)
--- NOTE | 2020-06-24 10:51 | MHIPNPDOC ---
[facility] Progress Note Progress Note DATE OF SERVICE: 06/24/20 Since yesterday. The patient has been fully cooperating with medicine and is showing slight improvement. His affect is not as tense, blunted, and showing some spontaneous spontaneity and more animated. He is eating well and reports that he ate double portion his morning. His stated very superficial and claims that he doesn't understand why he is in hospital and he is feeling absolutely fine. She is however willing to cooperate with the treatment plan. He is eating, sleeping okay and has no new complaints and in no acute physical distress HISTORY: . VITAL SIGNS: See below. NEW TEST RESULTS: . CURRENT MEDICATIONS: See below. MENTAL STATUS EXAMINATION: Patient is a 55-year old male, who is in no acute distress. Speech: Is relevant, but not productive. Language skills are good. Thought processes including: Status showing poverty of thoughts. Thought content: Superficial. He denies any problem. Abstract reasoning, and computation: , Poor. Description of associations: Poor . Description of abnormal or psychotic thoughts: Remains guarded and superficial. denying any symptoms. Judgment: , Poor. Insight: very poor. Orientation: , Well oriented. Recent and remote memory: , Poor. Attention span and concentration: , Poor. Language: . Fund of knowledge: Below average. Mood: Claims that he is feeling fine. Affect: , Blunted. DIAGNOSES: 1. [Major depression with psychotic feature]. 2. . 3. . ASSESSMENT:[Beginning to cooperate with medicine] MANAGEMENT PLAN: [. Continue with current Zyprexa and Prozac]. TIME SPENT: [15] minutes. Vital Signs Vital Signs Date Time Temp Pulse Resp B/P (MAP) Pulse Ox O2 Delivery O2 Flow Rate FiO2 06/24/20 08:04 64 06/24/20 08:04 116/82 06/24/20 06:10 98.0 14 100 Room Air Current Medications Current Medications Medications (Trade) Dose Ordered Sig/Shanell Route PRN Reason Start Time Stop Time Status Last Admin Dose Admin Al Hydrox/Mg Hydrox/Simethicone (Mylanta) 30 ml Q4HP PRN PO HEARTBURN/INDIGESTION 05/23/20 19:15 05/29/20 19:38 Albuterol Sulfate (Proventil, Ventolin Hfa) 2 puff QID PRN INH SOB/WHEEZING 05/23/20 19:15 06/17/20 14:54 Amlodipine Besylate (Norvasc) 5 mg DAILY PO 05/24/20 17:40 06/06/20 17:30 DC 06/06/20 08:31 Aspirin (Ecotrin) 81 mg DAILY PO 05/24/20 09:00 06/24/20 08:04 Cyanocobalamin (Vitamin B12 Injection) 1,000 mcg Q7D@09 SC 05/27/20 09:00 06/03/20 10:00 Fentanyl Citrate (Sublimaze) 25 mcg Q5MP PRN IV PAIN LEVEL 5-06/23/20 12:30 06/23/20 14:30 UNV Fluoxetine HCl (PROzac) 10 mg DAILY PO 05/24/20 09:00 05/31/20 16:48 DC 05/31/20 09:41 Fluoxetine HCl (PROzac) 10 mg DAILY PO 06/07/20 09:00 06/22/20 12:12 DC 06/22/20 08:55 Fluoxetine HCl (PROzac) 20 mg DAILY PO 06/01/20 09:00 06/01/20 15:33 DC 06/01/20 08:28 Fluoxetine HCl (PROzac) 20 mg DAILY PO 06/23/20 09:00 06/24/20 08:04 Home Med (Med Rec Complete!) ASDIRECTED XX 05/23/20 16:30 05/23/20 16:30 DC Ibuprofen (Advil) 400 mg Q6HP PRN PO PAIN 05/23/20 19:15 05/30/20 20:05 Lactated Ringer's 1,000 ml @ 75 mls/hr [id number] IV 06/23/20 12:30 06/23/20 14:30 UNV Magnesium Hydroxide (Milk Of Magnesia) 30 ml DAILYPRN PRN PO CONSTIPATION 05/23/20 19:15 Methylphenidate HCl (Ritalin) 5 mg QAM PO 06/02/20 09:00 06/07/20 08:28 DC 06/06/20 08:31 Miscellaneous (Unresolved Clarification Entry) SEE LABEL COMMENTS DAILY XX 06/07/20 09:00 06/07/20 11:01 DC Miscellaneous (Unresolved Clarification Entry) SEE LABEL COMMENTS DAILY XX 06/20/20 09:00 06/21/20 11:29 DC Miscellaneous (Unresolved Clarification Entry) SEE LABEL COMMENTS DAILY XX 06/23/20 09:00 06/23/20 15:38 DC Multivitamins (Theragram-M) 1 tab DAILY PO 05/26/20 12:00 06/24/20 08:04 Nicotine (Nicoderm Cq 14mg) 1 patch DAILY TD 05/24/20 09:00 06/09/20 10:44 DC 06/06/20 08:30 Non-Formulary Medication ( See Comment Field Below ) SEE LABEL COMMENTS DAILY XX 06/01/20 09:00 06/03/20 10:07 DC Olanzapine (ZyPREXA ZYDIS) 5 mg Q6HP PRN PO ANXIETY/AGITATION 05/24/20 00:40 06/01/20 15:33 DC 05/26/20 22:17 Olanzapine (ZyPREXA ZYDIS) 5 mg STAT STAT PO 06/06/20 17:32 06/06/20 17:33 DC 06/06/20 17:40 Olanzapine (ZyPREXA ZYDIS) 10 mg STAT STAT PO 05/24/20 00:37 05/24/20 00:39 DC 05/24/20 00:48 Olanzapine (ZyPREXA) 5 mg QHS PO 06/22/20 21:00 06/23/20 21:40 Omeprazole (PriLOSEC) 40 mg DAILY PO 05/25/20 09:00 06/24/20 08:04 Ondansetron HCl (ZOFRAN INJection) 4 mg Q4HP PRN IV NAUSEA OR VOMITING 06/23/20 12:30 06/23/20 14:30 UNV Oxycodone HCl (Roxicodone, Oxyir) 5 mg ASDIRECTED PRN PO PAIN LEVEL 1-4 06/23/20 12:30 06/23/20 14:30 UNV Propranolol HCl (Inderal) 20 mg BID PO 06/06/20 21:00 06/24/20 08:04 Propranolol HCl (Inderal) 20 mg TID PO 05/23/20 21:00 06/06/20 17:30 DC 06/06/20 08:31 Quetiapine Fumarate (SEROquel) 25 mg QHS PO 06/07/20 21:00 06/22/20 12:12 DC 06/21/20 19:56 Senna (Senokot) 1 tab DAILY PO 06/07/20 09:00 06/24/20 08:04 Sucralfate (Carafate Suspension) 1 gm AC PO 05/24/20 07:30 06/16/20 09:11 DC 06/13/20 06:35 Sucralfate (Carafate) 1 gm AC PO 05/23/20 17:30 05/24/20 07:41 DC 05/23/20 19:15 Trazodone HCl (Desyrel) 50 mg QHSP PRN PO INSOMNIA 05/23/20 19:15 06/08/20 08:44 DC 06/04/20 23:21 Valsartan (Diovan) 160 mg DAILY PO 05/25/20 09:00 06/24/20 08:04 Allergies Coded Allergies: Penicillins (Verified Allergy, Intermediate, HIVES, 04/09/20) SCARLETT STRONG M.D. June 24, 2020 10:51
[2020-06-24 16:19] VITALS: BP 103/70
[2020-06-24] MEDS: OLANZapine 5 MG TAB PO SCH (20:01)
[2020-06-25 06:23] VITALS: BP 94/53
[2020-06-25] MEDS: MULTIVITAMINS/MINERALS THERAP 1 TAB PO SCH (08:43)
[2020-06-25] MEDS: ASPIRIN 81MG ENTERIC TABLET PO SCH (08:43)
[2020-06-25] MEDS: OMEPRAZOLE 20 MG CAP PO SCH (08:43)
[2020-06-25] MEDS: SENNA 8.6 MG TAB (SENOKOT) PO SCH (08:43)
[2020-06-25] MEDS: VALSARTAN 80 MG TAB (DIOVAN) PO SCH (08:43)
[2020-06-25] MEDS: FLUoxetine 20 MG CAP PO SCH (08:43)
[2020-06-25] MEDS: PROPRANOLOL 20 MG TAB PO SCH ×2 (08:44→20:43)
[2020-06-25 16:27] VITALS: BP 100/50
[2020-06-25] MEDS: OLANZapine 5 MG TAB PO SCH (20:44)
[2020-06-26 06:24] VITALS: BP 115/70
[2020-06-26] MEDS: ASPIRIN 81MG ENTERIC TABLET PO SCH (09:00)
[2020-06-26] MEDS: OMEPRAZOLE 20 MG CAP PO SCH (09:00)
[2020-06-26] MEDS: PROPRANOLOL 20 MG TAB PO SCH ×2 (09:00→20:54)
[2020-06-26] MEDS: MULTIVITAMINS/MINERALS THERAP 1 TAB PO SCH (09:00)
[2020-06-26] MEDS: VALSARTAN 80 MG TAB (DIOVAN) PO SCH (09:00)
[2020-06-26] MEDS: FLUoxetine 20 MG CAP PO SCH (09:00)
[2020-06-26] MEDS: SENNA 8.6 MG TAB (SENOKOT) PO SCH (09:00)
[2020-06-26 16:13] VITALS: BP 117/73
[2020-06-26] MEDS: OLANZapine 5 MG TAB PO SCH (20:55)
[2020-06-27 06:24] VITALS: BP 101/60
[2020-06-27] MEDS: VALSARTAN 80 MG TAB (DIOVAN) PO SCH (09:00)
[2020-06-27] MEDS: PROPRANOLOL 20 MG TAB PO SCH ×2 (09:00→20:13)
[2020-06-27] MEDS: FLUoxetine 20 MG CAP PO SCH (09:00)
[2020-06-27] MEDS: MULTIVITAMINS/MINERALS THERAP 1 TAB PO SCH (09:00)
[2020-06-27] MEDS: SENNA 8.6 MG TAB (SENOKOT) PO SCH (09:00)
[2020-06-27] MEDS: ASPIRIN 81MG ENTERIC TABLET PO SCH (09:00)
[2020-06-27] MEDS: OMEPRAZOLE 20 MG CAP PO SCH (09:00)
[2020-06-27 09:30] VITALS: BP 102/64
--- NOTE | 2020-06-27 10:56 | MHIPNPDOC ---
[facility] Progress Note Progress Note DATE OF SERVICE: 06/27/20 The patient was cooperating with the medication of Prozac and Zyprexa for about 3 days and showed some improvement. In the past 2 days. He christiano been refusing h is medicine again and today he is in bed, markedly preoccupied and not responding to the questions and not cooperating with the interview. He appears very preoccupied, blunted and markedly withdrawn and showing some regression. I will try to educate to the importance of his medication HISTORY: . VITAL SIGNS: See below. NEW TEST RESULTS: . CURRENT MEDICATIONS: See below. MENTAL STATUS EXAMINATION: Patient is a 55-year old male, who is quite withdrawn and disheveled and not cooperating. Speech: Is , not productive. Language skills are poor . Thought processes including: , Almost mute. Thought content: Difficult to evaluate. Abstract reasoning, and computation: , Poor. Description of associations: , Poor. Description of abnormal or psychotic thoughts: Appears very guarded, preoccupied. Judgment: , Poor. Insight: very poor. Orientation: , Poor. Recent and remote memory: , Poor. Attention span and concentration: , Poor. Language: . Fund of knowledge: , Poor. Mood: Preoccupied. Affect: [Blunted]. DIAGNOSES: 1. . Major depression with psychotic feature 2. . 3. . ASSESSMENT:[If any, he is worse today after he refused his medication.] MANAGEMENT PLAN: [Try to educate him to cooperate with the medicine. He might respond better to different medical treatment such as ECT, which is not available here]. TIME SPENT: 15 minutes. Vital Signs Vital Signs Date Time Temp Pulse Resp B/P (MAP) Pulse Ox O2 Delivery O2 Flow Rate FiO2 06/27/20 06:24 99.6 81 18 101/60 (74) 100 Room Air Current Medications Current Medications Medications (Trade) Dose Ordered Sig/Shanell Route PRN Reason Start Time Stop Time Status Last Admin Dose Admin Al Hydrox/Mg Hydrox/Simethicone (Mylanta) 30 ml Q4HP PRN PO HEARTBURN/INDIGESTION 05/23/20 19:15 05/29/20 19:38 Albuterol Sulfate (Proventil, Ventolin Hfa) 2 puff QID PRN INH SOB/WHEEZING 05/23/20 19:15 06/17/20 14:54 Amlodipine Besylate (Norvasc) 5 mg DAILY PO 05/24/20 17:40 06/06/20 17:30 DC 06/06/20 08:31 Aspirin (Ecotrin) 81 mg DAILY PO 05/24/20 09:00 06/25/20 08:43 Cyanocobalamin (Vitamin B12 Injection) 1,000 mcg Q7D@09 SC 05/27/20 09:00 06/03/20 10:00 Fentanyl Citrate (Sublimaze) 25 mcg Q5MP PRN IV PAIN LEVEL 5-10 06/23/20 12:30 06/23/20 14:30 UNV Fluoxetine HCl (PROzac) 10 mg DAILY PO 05/24/20 09:00 05/31/20 16:48 DC 05/31/20 09:41 Fluoxetine HCl (PROzac) 10 mg DAILY PO 06/07/20 09:00 06/22/20 12:12 DC 06/22/20 08:55 Fluoxetine HCl (PROzac) 20 mg DAILY PO 06/01/20 09:00 06/01/20 15:33 DC 06/01/20 08:28 Fluoxetine HCl (PROzac) 20 mg DAILY PO 06/23/20 09:00 06/25/20 08:43 Home Med (Med Rec Complete!) ASDIRECTED XX 05/23/20 16:30 05/23/20 16:30 DC Ibuprofen (Advil) 400 mg Q6HP PRN PO PAIN 05/23/20 19:15 05/30/20 20:05 Lactated Ringer's 1,000 ml @ 75 mls/hr [id number] IV 06/23/20 12:30 06/23/20 14:30 UNV Magnesium Hydroxide (Milk Of Magnesia) 30 ml DAILYPRN PRN PO CONSTIPATION 05/23/20 19:15 Methylphenidate HCl (Ritalin) 5 mg QAM PO 06/02/20 09:00 06/07/20 08:28 DC 06/06/20 08:31 Miscellaneous (Unresolved Clarification Entry) SEE LABEL COMMENTS DAILY XX 06/07/20 09:00 06/07/20 11:01 DC Miscellaneous (Unresolved Clarification Entry) SEE LABEL COMMENTS DAILY XX 06/20/20 09:00 06/21/20 11:29 DC Miscellaneous (Unresolved Clarification Entry) SEE LABEL COMMENTS DAILY XX 06/23/20 09:00 06/23/20 15:38 DC Miscellaneous (Unresolved Clarification Entry) SEE LABEL COMMENTS DAILY XX 06/25/20 09:00 06/25/20 10:26 DC Multivitamins (Theragram-M) 1 tab DAILY PO 05/26/20 12:00 06/25/20 08:43 Nicotine (Nicoderm Cq 14mg) 1 patch DAILY TD 05/24/20 09:00 06/09/20 10:44 DC 06/06/20 08:30 Non-Formulary Medication ( See Comment Field Below ) SEE LABEL COMMENTS DAILY XX 06/01/20 09:00 06/03/20 10:07 DC Olanzapine (ZyPREXA ZYDIS) 5 mg Q6HP PRN PO ANXIETY/AGITATION 05/24/20 00:40 06/01/20 15:33 DC 05/26/20 22:17 Olanzapine (ZyPREXA ZYDIS) 5 mg STAT STAT PO 06/06/20 17:32 06/06/20 17:33 DC 06/06/20 17:40 Olanzapine (ZyPREXA ZYDIS) 10 mg STAT STAT PO 05/24/20 00:37 05/24/20 00:39 DC 05/24/20 00:48 Olanzapine (ZyPREXA) 5 mg QHS PO 06/22/20 21:00 06/24/20 20:01 Omeprazole (PriLOSEC) 40 mg DAILY PO 05/25/20 09:00 06/25/20 08:43 Ondansetron HCl (ZOFRAN INJection) 4 mg Q4HP PRN IV NAUSEA OR VOMITING 06/23/20 12:30 06/23/20 14:30 UNV Oxycodone HCl (Roxicodone, Oxyir) 5 mg ASDIRECTED PRN PO PAIN LEVEL 1-4 06/23/20 12:30 06/23/20 14:30 UNV Propranolol HCl (Inderal) 20 mg BID PO 06/06/20 21:00 06/25/20 08:44 Propranolol HCl (Inderal) 20 mg TID PO 05/23/20 21:00 06/06/20 17:30 DC 06/06/20 08:31 Quetiapine Fumarate (SEROquel) 25 mg QHS PO 06/07/20 21:00 06/22/20 12:12 DC 06/21/20 19:56 Senna (Senokot) 1 tab DAILY PO 06/07/20 09:00 06/25/20 08:43 Sucralfate (Carafate Suspension) 1 gm AC PO 05/24/20 07:30 06/16/20 09:11 DC 06/13/20 06:35 Sucralfate (Carafate) 1 gm AC PO 05/23/20 17:30 05/24/20 07:41 DC 05/23/20 19:15 Trazodone HCl (Desyrel) 50 mg QHSP PRN PO INSOMNIA 05/23/20 19:15 06/08/20 08:44 DC 06/04/20 23:21 Valsartan (Diovan) 160 mg DAILY PO 05/25/20 09:00 06/25/20 08:43 Allergies Coded Allergies: Penicillins (Verified Allergy, Intermediate, HIVES, 04/09/20) SCARLETT STRONG M.D. June 27, 2020 10:56
[2020-06-27] MEDS: IBUPROFEN 400MG TAB PO PRN (14:38)
[2020-06-27 16:39] VITALS: BP 119/74
[2020-06-27] MEDS: OLANZapine 5 MG TAB PO SCH (20:13)
[2020-06-28 06:36] VITALS: BP 91/52
[2020-06-28] MEDS: VALSARTAN 80 MG TAB (DIOVAN) PO SCH (08:01)
[2020-06-28] MEDS: OMEPRAZOLE 20 MG CAP PO SCH (08:02)
[2020-06-28] MEDS: ALBUTEROL 90 MCG/ACT 8GM HFA INHALER INH PRN (08:02)
[2020-06-28] MEDS: ASPIRIN 81MG ENTERIC TABLET PO SCH (08:02)
[2020-06-28] MEDS: PROPRANOLOL 20 MG TAB PO SCH ×2 (08:02→22:18)
[2020-06-28] MEDS: SENNA 8.6 MG TAB (SENOKOT) PO SCH (08:02)
[2020-06-28] MEDS: FLUoxetine 20 MG CAP PO SCH (08:02)
[2020-06-28] MEDS: MULTIVITAMINS/MINERALS THERAP 1 TAB PO SCH (08:03)
--- NOTE | 2020-06-28 09:31 | MHIPNPDOC ---
[facility] Progress Note Progress Note DATE OF SERVICE: 06/28/20 The patient reportedly refused his to psychotropic medicine over the weekend. He was avoiding the M.D. and finally agreed to come in to the office but still very guarded and evasive. When confronted about the medication issue patient claims that he has been taking it and indeed took his morning medicine. The M.D. try to discuss his past treatment history, and asked about his response to the benzodiazepine and patient claims that he did very good with the benzodiazepine, but at this point he doesn't feel very anxious and doesn't feel he needs any extra medicine. He is extremely superficial and minimizing any psychiatric symptoms and doesn't feel he really needs any help and he feels wonderful." . He is eating and sleeping okay and showing no acting out behavior, but remains guarded, withdrawn, and denying any problems. HISTORY: . VITAL SIGNS: See below. NEW TEST RESULTS: . CURRENT MEDICATIONS: See below. MENTAL STATUS EXAMINATION: Patient is a 55-year old male, who is pacing the hallways, alert, disheveled, but in control and in no acute distress. Speech: Is , not spontaneous, not productive and very poor historian. Language skills are , poor. Thought processes including: Denying and minimizing any problems. Thought content: Strongly denial and not able to engage in any substantial conversation. Abstract reasoning, and computation: , Poor. Description of associations: , Poor. Description of abnormal or psychotic thoughts: Continued to deny any problems. Judgment: , Poor. Insight: very poor. Orientation: Appears oriented. Recent and remote memory: poor. Attention span and concentration: , Poor. Language: . Fund of knowledge: Below average. Mood: Appears preoccupied with the wrong depressed, but denies any of that. Affect: Blunted preoccupied]. DIAGNOSES: 1. . Major depression. His psychotic feature 2. . 3. . ASSESSMENT: No improvement and questionable compliance with treatment MANAGEMENT PLAN: Continue to try educate and stabilized with the medications . TIME SPENT: 20 minutes. Vital Signs Vital Signs Date Time Temp Pulse Resp B/P (MAP) Pulse Ox O2 Delivery O2 Flow Rate FiO2 06/28/20 08:02 97 112/73 06/28/20 06:36 99.8 20 95 Room Air Current Medications Current Medications Medications (Trade) Dose Ordered Sig/Shanell Route PRN Reason Start Time Stop Time Status Last Admin Dose Admin Al Hydrox/Mg Hydrox/Simethicone (Mylanta) 30 ml Q4HP PRN PO HEARTBURN/INDIGESTION 05/23/20 19:15 05/29/20 19:38 Albuterol Sulfate (Proventil, Ventolin Hfa) 2 puff QID PRN INH SOB/WHEEZING 05/23/20 19:15 06/28/20 08:02 Amlodipine Besylate (Norvasc) 5 mg DAILY PO 05/24/20 17:40 06/06/20 17:30 DC 06/06/20 08:31 Aspirin (Ecotrin) 81 mg DAILY PO 05/24/20 09:00 06/28/20 08:02 Cyanocobalamin (Vitamin B12 Injection) 1,000 mcg Q7D@09 SC 05/27/20 09:00 06/03/20 10:00 Fentanyl Citrate (Sublimaze) 25 mcg Q5MP PRN IV PAIN LEVEL 5-10 06/23/20 12:30 06/23/20 14:30 UNV Fluoxetine HCl (PROzac) 10 mg DAILY PO 05/24/20 09:00 05/31/20 16:48 DC 05/31/20 09:41 Fluoxetine HCl (PROzac) 10 mg DAILY PO 06/07/20 09:00 06/22/20 12:12 DC 06/22/20 08:55 Fluoxetine HCl (PROzac) 20 mg DAILY PO 06/01/20 09:00 06/01/20 15:33 DC 06/01/20 08:28 Fluoxetine HCl (PROzac) 20 mg DAILY PO 06/23/20 09:00 06/28/20 08:02 Home Med (Med Rec Complete!) ASDIRECTED XX 05/23/20 16:30 05/23/20 16:30 DC Ibuprofen (Advil) 400 mg Q6HP PRN PO PAIN 05/23/20 19:15 06/27/20 14:38 Lactated Ringer's 1,000 ml @ 75 mls/hr [id number] IV 06/23/20 12:30 06/23/20 14:30 UNV Magnesium Hydroxide (Milk Of Magnesia) 30 ml DAILYPRN PRN PO CONSTIPATION 05/23/20 19:15 Methylphenidate HCl (Ritalin) 5 mg QAM PO 06/02/20 09:00 06/07/20 08:28 DC 06/06/20 08:31 Miscellaneous (Unresolved Clarification Entry) SEE LABEL COMMENTS DAILY XX 06/07/20 09:00 06/07/20 11:01 DC Miscellaneous (Unresolved Clarification Entry) SEE LABEL COMMENTS DAILY XX 06/20/20 09:00 06/21/20 11:29 DC Miscellaneous (Unresolved Clarification Entry) SEE LABEL COMMENTS DAILY XX 06/23/20 09:00 06/23/20 15:38 DC Miscellaneous (Unresolved Clarification Entry) SEE LABEL COMMENTS DAILY XX 06/25/20 09:00 06/25/20 10:26 DC Multivitamins (Theragram-M) 1 tab DAILY PO 05/26/20 12:00 06/28/20 08:03 Nicotine (Nicoderm Cq 14mg) 1 patch DAILY TD 05/24/20 09:00 06/09/20 10:44 DC 06/06/20 08:30 Non-Formulary Medication ( See Comment Field Below ) SEE LABEL COMMENTS DAILY XX 06/01/20 09:00 06/03/20 10:07 DC Olanzapine (ZyPREXA ZYDIS) 5 mg Q6HP PRN PO ANXIETY/AGITATION 05/24/20 00:40 06/01/20 15:33 DC 05/26/20 22:17 Olanzapine (ZyPREXA ZYDIS) 5 mg STAT STAT PO 06/06/20 17:32 06/06/20 17:33 DC 06/06/20 17:40 Olanzapine (ZyPREXA ZYDIS) 10 mg STAT STAT PO 05/24/20 00:37 05/24/20 00:39 DC 05/24/20 00:48 Olanzapine (ZyPREXA) 5 mg QHS PO 06/22/20 21:00 06/27/20 20:13 Omeprazole (PriLOSEC) 40 mg DAILY PO 05/25/20 09:00 06/28/20 08:02 Ondansetron HCl (ZOFRAN INJection) 4 mg Q4HP PRN IV NAUSEA OR VOMITING 06/23/20 12:30 06/23/20 14:30 UNV Oxycodone HCl (Roxicodone, Oxyir) 5 mg ASDIRECTED PRN PO PAIN LEVEL 1-4 06/23/20 12:30 06/23/20 14:30 UNV Propranolol HCl (Inderal) 20 mg BID PO 06/06/20 21:00 06/28/20 08:02 Propranolol HCl (Inderal) 20 mg TID PO 05/23/20 21:00 06/06/20 17:30 DC 06/06/20 08:31 Quetiapine Fumarate (SEROquel) 25 mg QHS PO 06/07/20 21:00 06/22/20 12:12 DC 06/21/20 19:56 Senna (Senokot) 1 tab DAILY PO 06/07/20 09:00 06/28/20 08:02 Sucralfate (Carafate Suspension) 1 gm AC PO 05/24/20 07:30 06/16/20 09:11 DC 06/13/20 06:35 Sucralfate (Carafate) 1 gm AC PO 05/23/20 17:30 05/24/20 07:41 DC 05/23/20 19:15 Trazodone HCl (Desyrel) 50 mg QHSP PRN PO INSOMNIA 05/23/20 19:15 06/08/20 08:44 DC 06/04/20 23:21 Valsartan (Diovan) 160 mg DAILY PO 05/25/20 09:00 06/28/20 08:01 Allergies Coded Allergies: Penicillins (Verified Allergy, Intermediate, HIVES, 04/09/20) SCARLETT STRONG M.D. June 28, 2020 09:31
[2020-06-28] MEDS: OLANZapine 5 MG TAB PO SCH (22:10)
[2020-06-29 06:26] VITALS: BP 114/69
[2020-06-29] MEDS: ASPIRIN 81MG ENTERIC TABLET PO SCH (09:00)
[2020-06-29] MEDS: VALSARTAN 80 MG TAB (DIOVAN) PO SCH (09:01)
[2020-06-29] MEDS: OMEPRAZOLE 20 MG CAP PO SCH (09:01)
[2020-06-29] MEDS: MULTIVITAMINS/MINERALS THERAP 1 TAB PO SCH (09:01)
[2020-06-29] MEDS: FLUoxetine 20 MG CAP PO SCH (09:01)
[2020-06-29] MEDS: PROPRANOLOL 20 MG TAB PO SCH ×3 (09:01→21:13)
[2020-06-29] MEDS: SENNA 8.6 MG TAB (SENOKOT) PO SCH (09:01)
--- NOTE | 2020-06-29 11:03 | MHIPNPDOC ---
[facility] Progress Note Progress Note DATE OF SERVICE: 06/29/20 After refusing to take his medicine over the weekend, the patient started to cooperate with all the medications. He is eating and sleeping out of bed, is pacing. However, he looks more pale and quite disheveled but in no acute distress and he is denying any physical complaints. His mental status is basically the same with very superficial, evasive answers and claims he has more problems, and he is feeling wonderful. I'm a little concerned about his overall physical appearance and I will repeat his relapse of CBC and CMP. HISTORY: . VITAL SIGNS: See below. NEW TEST RESULTS: . CURRENT MEDICATIONS: See below. MENTAL STATUS EXAMINATION: Patient is a 55-year old male, who is pacing the [place] or. Speech: Is superficial or not spontaneous. Language skills are , poor . Thought processes including: Denies any problem and very superficial. Thought content: Denies any problem. Abstract reasoning, and computation: , Poor. Description of associations: , Poor. Description of abnormal or psychotic thoughts: Claimed she is feeling fine and have no symptoms. Judgment: , Poor. Insight: very poor. Orientation: Appears oriented. Recent and remote memory: , Poor. Attention span and concentration: , Poor. Language: . Fund of knowledge: , Poor. Mood: Claims is feeling fine . Affect: , Very blunted, preoccupied. DIAGNOSES: 1. Cooperating with the medicine, but no improvement. Diagnosis is major depression. His psychotic feature. 2. . 3. . ASSESSMENT:Complying with the medicine, but no improvement MANAGEMENT PLAN: Continue with the current medicine evaluate with the Lab work. TIME SPENT: 15 minutes. Vital Signs Vital Signs Date Time Temp Pulse Resp B/P (MAP) Pulse Ox O2 Delivery O2 Flow Rate FiO2 06/29/20 09:01 67 114/69 06/29/20 06:26 99.3 14 95 Room Air Current Medications Current Medications Medications (Trade) Dose Ordered Sig/Shanell Route PRN Reason Start Time Stop Time Status Last Admin Dose Admin Al Hydrox/Mg Hydrox/Simethicone (Mylanta) 30 ml Q4HP PRN PO HEARTBURN/INDIGESTION 05/23/20 19:15 05/29/20 19:38 Albuterol Sulfate (Proventil, Ventolin Hfa) 2 puff QID PRN INH SOB/WHEEZING 05/23/20 19:15 06/28/20 08:02 Amlodipine Besylate (Norvasc) 5 mg DAILY PO 05/24/20 17:40 06/06/20 17:30 DC 06/06/20 08:31 Aspirin (Ecotrin) 81 mg DAILY PO 05/24/20 09:00 06/29/20 09:00 Cyanocobalamin (Vitamin B12 Injection) 1,000 mcg Q7D@09 SC 05/27/20 09:00 06/03/20 10:00 Fentanyl Citrate (Sublimaze) 25 mcg Q5MP PRN IV PAIN LEVEL 5-06/23/20 12:30 06/23/20 14:30 UNV Fluoxetine HCl (PROzac) 10 mg DAILY PO 05/24/20 09:00 05/31/20 16:48 DC 05/31/20 09:41 Fluoxetine HCl (PROzac) 10 mg DAILY PO 06/07/20 09:00 06/22/20 12:12 DC 06/22/20 08:55 Fluoxetine HCl (PROzac) 20 mg DAILY PO 06/01/20 09:00 06/01/20 15:33 DC 06/01/20 08:28 Fluoxetine HCl (PROzac) 20 mg DAILY PO 06/23/20 09:00 06/29/20 09:01 Home Med (Med Rec Complete!) ASDIRECTED XX 05/23/20 16:30 05/23/20 16:30 DC Ibuprofen (Advil) 400 mg Q6HP PRN PO PAIN 05/23/20 19:15 06/27/20 14:38 Lactated Ringer's 1,000 ml @ 75 mls/hr [id number] IV 06/23/20 12:30 06/23/20 14:30 UNV Magnesium Hydroxide (Milk Of Magnesia) 30 ml DAILYPRN PRN PO CONSTIPATION 05/23/20 19:15 Methylphenidate HCl (Ritalin) 5 mg QAM PO 06/02/20 09:00 06/07/20 08:28 DC 06/06/20 08:31 Miscellaneous (Unresolved Clarification Entry) SEE LABEL COMMENTS DAILY XX 06/07/20 09:00 06/07/20 11:01 DC Miscellaneous (Unresolved Clarification Entry) SEE LABEL COMMENTS DAILY XX 06/20/20 09:00 06/21/20 11:29 DC Miscellaneous (Unresolved Clarification Entry) SEE LABEL COMMENTS DAILY XX 06/23/20 09:00 06/23/20 15:38 DC Miscellaneous (Unresolved Clarification Entry) SEE LABEL COMMENTS DAILY XX 06/25/20 09:00 06/25/20 10:26 DC Multivitamins (Theragram-M) 1 tab DAILY PO 05/26/20 12:00 06/29/20 09:01 Nicotine (Nicoderm Cq 14mg) 1 patch DAILY TD 05/24/20 09:00 06/09/20 10:44 DC 06/06/20 08:30 Non-Formulary Medication ( See Comment Field Below ) SEE LABEL COMMENTS DAILY XX 06/01/20 09:00 06/03/20 10:07 DC Olanzapine (ZyPREXA ZYDIS) 5 mg Q6HP PRN PO ANXIETY/AGITATION 05/24/20 00:40 06/01/20 15:33 DC 05/26/20 22:17 Olanzapine (ZyPREXA ZYDIS) 5 mg STAT STAT PO 06/06/20 17:32 06/06/20 17:33 DC 06/06/20 17:40 Olanzapine (ZyPREXA ZYDIS) 10 mg STAT STAT PO 05/24/20 00:37 05/24/20 00:39 DC 05/24/20 00:48 Olanzapine (ZyPREXA) 5 mg QHS PO 06/22/20 21:00 06/28/20 22:10 Omeprazole (PriLOSEC) 40 mg DAILY PO 05/25/20 09:00 06/29/20 09:01 Ondansetron HCl (ZOFRAN INJection) 4 mg Q4HP PRN IV NAUSEA OR VOMITING 06/23/20 12:30 06/23/20 14:30 UNV Oxycodone HCl (Roxicodone, Oxyir) 5 mg ASDIRECTED PRN PO PAIN LEVEL 1-4 06/23/20 12:30 06/23/20 14:30 UNV Propranolol HCl (Inderal) 20 mg BID PO 06/06/20 21:00 06/29/20 09:01 Propranolol HCl (Inderal) 20 mg TID PO 05/23/20 21:00 06/06/20 17:30 DC 06/06/20 08:31 Quetiapine Fumarate (SEROquel) 25 mg QHS PO 06/07/20 21:00 06/22/20 12:12 DC 06/21/20 19:56 Senna (Senokot) 1 tab DAILY PO 06/07/20 09:00 06/29/20 09:01 Sucralfate (Carafate Suspension) 1 gm AC PO 05/24/20 07:30 06/16/20 09:11 DC 06/13/20 06:35 Sucralfate (Carafate) 1 gm AC PO 05/23/20 17:30 05/24/20 07:41 DC 05/23/20 19:15 Trazodone HCl (Desyrel) 50 mg QHSP PRN PO INSOMNIA 05/23/20 19:15 06/08/20 08:44 DC 06/04/20 23:21 Valsartan (Diovan) 160 mg DAILY PO 05/25/20 09:00 06/29/20 09:01 Allergies Coded Allergies: Penicillins (Verified Allergy, Intermediate, HIVES, 04/09/20) SCARLETT STRONG M.D. June 29, 2020 11:03
[2020-06-29 18:03] VITALS: BP 101/63
[2020-06-29] MEDS: OLANZapine 5 MG TAB PO SCH ×2 (21:00→21:11)
[2020-06-30 06:32] VITALS: BP 130/59
[2020-06-30] MEDS: SENNA 8.6 MG TAB (SENOKOT) PO SCH (09:49)
[2020-06-30] MEDS: OMEPRAZOLE 20 MG CAP PO SCH (09:49)
[2020-06-30] MEDS: ASPIRIN 81MG ENTERIC TABLET PO SCH (09:49)
[2020-06-30] MEDS: FLUoxetine 20 MG CAP PO SCH (09:49)
[2020-06-30] MEDS: MULTIVITAMINS/MINERALS THERAP 1 TAB PO SCH (09:49)
[2020-06-30] MEDS: PROPRANOLOL 20 MG TAB PO SCH ×2 (09:50→20:47)
[2020-06-30] MEDS: VALSARTAN 80 MG TAB (DIOVAN) PO SCH (09:54)
--- NOTE | 2020-06-30 10:37 | MHIPNPDOC ---
[facility] Progress Note Progress Note DATE OF SERVICE: 06/30/20 Since Saturday. The patient has been cooperating with the medicine. He is not showing much improvement remains superficial, preoccupied and denies any problems again. When asked about any medication for his anxiety. Patient reports he is feeling wonderful and he is eating double portion for his meal. The staff reports that he orders extra food that doesn't it the food. He is pacing the hardwick and not engaging in any spontaneous conversation, but has not been agitated, aggressive or self mutilating. HISTORY: . VITAL SIGNS: See below. NEW TEST RESULTS: . CURRENT MEDICATIONS: See below. MENTAL STATUS EXAMINATION: Patient is a 55-year old male, who is , somewhat pale and disheveled but in no acute distress. Speech: Is minimum. Language skills are poor . Thought processes including: , Not productive superficial, evasive. Thought content: Difficulty. Evaluate, but claims he is feeling excellent and has no problems. Abstract reasoning, and computation: For. Description of associations: , Poor. Description of abnormal or psychotic thoughts: Appears very guarded and preoccupied but denies any problem. Judgment: , Poor. Insight: poor]. Orientation: Appears oriented. Recent and remote memory: , Only fair. Attention span and concentration: , Poor. Language: . Fund of knowledge: Below average . Mood: Appears moderately anxious and preoccupied but denies any problems. Affect : , Blunted, preoccupied]. DIAGNOSES: 1. Major depression with psychotic feature . 2. . 3. . ASSESSMENT:[No improvement] MANAGEMENT PLAN: [, He started to cooperate with the medicines continue the current medicine and supportive therapy]. TIME SPENT: [15] minutes. Vital Signs Vital Signs Date Time Temp Pulse Resp B/P (MAP) Pulse Ox O2 Delivery O2 Flow Rate FiO2 06/30/20 09:50 79 105/79 06/30/20 06:32 98.9 16 99 Room Air Current Medications Current Medications Medications (Trade) Dose Ordered Sig/Shanell Route PRN Reason Start Time Stop Time Status Last Admin Dose Admin Al Hydrox/Mg Hydrox/Simethicone (Mylanta) 30 ml Q4HP PRN PO HEARTBURN/INDIGESTION 05/23/20 19:15 05/29/20 19:38 Albuterol Sulfate (Proventil, Ventolin Hfa) 2 puff QID PRN INH SOB/WHEEZING 05/23/20 19:15 06/28/20 08:02 Amlodipine Besylate (Norvasc) 5 mg DAILY PO 05/24/20 17:40 06/06/20 17:30 DC 06/06/20 08:31 Aspirin (Ecotrin) 81 mg DAILY PO 05/24/20 09:00 06/30/20 09:49 Cyanocobalamin (Vitamin B12 Injection) 1,000 mcg Q7D@09 SC 05/27/20 09:00 06/03/20 10:00 Fentanyl Citrate (Sublimaze) 25 mcg Q5MP PRN IV PAIN LEVEL 5-10 06/23/20 12:30 06/23/20 14:30 UNV Fluoxetine HCl (PROzac) 10 mg DAILY PO 05/24/20 09:00 05/31/20 16:48 DC 05/31/20 09:41 Fluoxetine HCl (PROzac) 10 mg DAILY PO 06/07/20 09:00 06/22/20 12:12 DC 06/22/20 08:55 Fluoxetine HCl (PROzac) 20 mg DAILY PO 06/01/20 09:00 06/01/20 15:33 DC 06/01/20 08:28 Fluoxetine HCl (PROzac) 20 mg DAILY PO 06/23/20 09:00 06/30/20 09:49 Home Med (Med Rec Complete!) ASDIRECTED XX 05/23/20 16:30 05/23/20 16:30 DC Ibuprofen (Advil) 400 mg Q6HP PRN PO PAIN 05/23/20 19:15 06/27/20 14:38 Lactated Ringer's 1,000 ml @ 75 mls/hr [id number] IV 06/23/20 12:30 06/23/20 14:30 UNV Magnesium Hydroxide (Milk Of Magnesia) 30 ml DAILYPRN PRN PO CONSTIPATION 05/23/20 19:15 Methylphenidate HCl (Ritalin) 5 mg QAM PO 06/02/20 09:00 06/07/20 08:28 DC 06/06/20 08:31 Miscellaneous (Unresolved Clarification Entry) SEE LABEL COMMENTS DAILY XX 06/07/20 09:00 06/07/20 11:01 DC Miscellaneous (Unresolved Clarification Entry) SEE LABEL COMMENTS DAILY XX 06/20/20 09:00 06/21/20 11:29 DC Miscellaneous (Unresolved Clarification Entry) SEE LABEL COMMENTS DAILY XX 06/23/20 09:00 06/23/20 15:38 DC Miscellaneous (Unresolved Clarification Entry) SEE LABEL COMMENTS DAILY XX 06/25/20 09:00 06/25/20 10:26 DC Multivitamins (Theragram-M) 1 tab DAILY PO 05/26/20 12:00 06/30/20 09:49 Nicotine (Nicoderm Cq 14mg) 1 patch DAILY TD 05/24/20 09:00 06/09/20 10:44 DC 06/06/20 08:30 Non-Formulary Medication ( See Comment Field Below ) SEE LABEL COMMENTS DAILY XX 06/01/20 09:00 06/03/20 10:07 DC Olanzapine (ZyPREXA ZYDIS) 5 mg Q6HP PRN PO ANXIETY/AGITATION 05/24/20 00:40 06/01/20 15:33 DC 05/26/20 22:17 Olanzapine (ZyPREXA ZYDIS) 5 mg STAT STAT PO 06/06/20 17:32 06/06/20 17:33 DC 06/06/20 17:40 Olanzapine (ZyPREXA ZYDIS) 10 mg STAT STAT PO 05/24/20 00:37 05/24/20 00:39 DC 05/24/20 00:48 Olanzapine (ZyPREXA) 5 mg QHS PO 06/22/20 21:00 06/29/20 21:11 Omeprazole (PriLOSEC) 40 mg DAILY PO 05/25/20 09:00 06/30/20 09:49 Ondansetron HCl (ZOFRAN INJection) 4 mg Q4HP PRN IV NAUSEA OR VOMITING 06/23/20 12:30 06/23/20 14:30 UNV Oxycodone HCl (Roxicodone, Oxyir) 5 mg ASDIRECTED PRN PO PAIN LEVEL 1-4 06/23/20 12:30 06/23/20 14:30 UNV Propranolol HCl (Inderal) 20 mg BID PO 06/06/20 21:00 06/30/20 09:50 Propranolol HCl (Inderal) 20 mg TID PO 05/23/20 21:00 06/06/20 17:30 DC 06/06/20 08:31 Quetiapine Fumarate (SEROquel) 25 mg QHS PO 06/07/20 21:00 06/22/20 12:12 DC 06/21/20 19:56 Senna (Senokot) 1 tab DAILY PO 06/07/20 09:00 06/30/20 09:49 Sucralfate (Carafate Suspension) 1 gm AC PO 05/24/20 07:30 06/16/20 09:11 DC 06/13/20 06:35 Sucralfate (Carafate) 1 gm AC PO 05/23/20 17:30 05/24/20 07:41 DC 05/23/20 19:15 Trazodone HCl (Desyrel) 50 mg QHSP PRN PO INSOMNIA 05/23/20 19:15 06/08/20 08:44 DC 06/04/20 23:21 Valsartan (Diovan) 160 mg DAILY PO 05/25/20 09:00 06/30/20 09:54 Allergies Coded Allergies: Penicillins (Verified Allergy, Intermediate, HIVES, 04/09/20) SCARLETT STRONG M.D. June 30, 2020 10:37
[2020-06-30 16:01] VITALS: BP 115/72
[2020-06-30] MEDS: OLANZapine 5 MG TAB PO SCH (20:47)
[2020-07-01 06:06] VITALS: BP 99/63
[2020-07-01] MEDS: CYANOCOBALAMIN 1,000MCG/ML VIAL (J3420) SC SCH (09:00)
[2020-07-01] MEDS: PROPRANOLOL 20 MG TAB PO SCH ×2 (09:00→21:23)
[2020-07-01] MEDS: VALSARTAN 80 MG TAB (DIOVAN) PO SCH (09:00)
[2020-07-01] MEDS: PARoxetine 20MG TABLET PO SCH (09:12)
[2020-07-01] MEDS: MULTIVITAMINS/MINERALS THERAP 1 TAB PO SCH (09:12)
[2020-07-01] MEDS: OLANZapine ORAL DISINTEGRATING TAB 5MG PO SCH ×2 (09:12→21:23)
[2020-07-01] MEDS: ASPIRIN 81MG ENTERIC TABLET PO SCH (09:12)
[2020-07-01] MEDS: SENNA 8.6 MG TAB (SENOKOT) PO SCH (09:12)
[2020-07-01] MEDS: OMEPRAZOLE 20 MG CAP PO SCH (09:12)
--- NOTE | 2020-07-01 09:57 | MHIPNPDOC ---
[facility] Progress Note Progress Note DATE OF SERVICE: 07/01/20 The patient again appears quite disheveled, withdrawn and preoccupied. He is pacing the hallways and when approached by the M.D he is only answering with simple yes and no and we did not engage in any meaningful conversation. He claims that he is eating double portions sleeping well and doesn't have any problems at all. Routine lab, CBC and CMP was done about a week ago on June 22, which was all within normal limits. However, the staff reports that he is been losing weight a little and appears more disheveled and pale., I will change his Prozac to Paxil for more anxiolytic effect and continue with the Zyprexa 5 mg twice a day. It was also reported that she had fecal incontinence and had the urinary incontinence , several days ago which the patient is denying. HISTORY: . VITAL SIGNS: See below. NEW TEST RESULTS: . CURRENT MEDICATIONS: See below. MENTAL STATUS EXAMINATION: Patient is a 55-year old male, who is , somewhat disheveled and anxious. Speech: Is superficial, evasive, and denying any problems. Language skills are , poor. Thought processes including: , Relevant, but not productive. Thought content: Denying any problem showing some poverty of thoughts. Abstract reasoning, and computation: , Poor. Description of associations: , Not productive. Description of abnormal or psychotic thoughts: Denies any problem. Judgment: poor. Insight: nil. Orientation: Appears oriented. Recent and remote memory: poor. Attention span and concentration: [poor]. Language: . Fund of knowledge: [poor]. Mood: Anxious, preoccupied . Affect: [Blunted]. DIAGNOSES: 1. . Major depression with psychotic feature 2. . 3. . ASSESSMENT:[, Again showing no improvement] MANAGEMENT PLAN: [Patient started to cooperate with the medicine for the past 3 days, so we will continue with his Paxil and Zoloft to stabilize]. TIME SPENT: [15] minutes. Vital Signs Vital Signs Date Time Temp Pulse Resp B/P (MAP) Pulse Ox O2 Delivery O2 Flow Rate FiO2 07/01/20 09:00 75 99/63 07/01/20 06:06 99.0 18 96 Room Air Current Medications Current Medications Medications (Trade) Dose Ordered Sig/Shanell Route PRN Reason Start Time Stop Time Status Last Admin Dose Admin Al Hydrox/Mg Hydrox/Simethicone (Mylanta) 30 ml Q4HP PRN PO HEARTBURN/INDIGESTION 05/23/20 19:15 05/29/20 19:38 Albuterol Sulfate (Proventil, Ventolin Hfa) 2 puff QID PRN INH SOB/WHEEZING 05/23/20 19:15 06/28/20 08:02 Amlodipine Besylate (Norvasc) 5 mg DAILY PO 05/24/20 17:40 06/06/20 17:30 DC 06/06/20 08:31 Aspirin (Ecotrin) 81 mg DAILY PO 05/24/20 09:00 07/01/20 09:12 Cyanocobalamin (Vitamin B12 Injection) 1,000 mcg Q7D@09 SC 05/27/20 09:00 06/03/20 10:00 Fentanyl Citrate (Sublimaze) 25 mcg Q5MP PRN IV PAIN LEVEL 5-10 06/23/20 12:30 06/23/20 14:30 UNV Fluoxetine HCl (PROzac) 10 mg DAILY PO 05/24/20 09:00 05/31/20 16:48 DC 05/31/20 09:41 Fluoxetine HCl (PROzac) 10 mg DAILY PO 06/07/20 09:00 06/22/20 12:12 DC 06/22/20 08:55 Fluoxetine HCl (PROzac) 20 mg DAILY PO 06/01/20 09:00 06/01/20 15:33 DC 06/01/20 08:28 Fluoxetine HCl (PROzac) 20 mg DAILY PO 06/23/20 09:00 07/01/20 07:27 DC 06/30/20 09:49 Home Med (Med Rec Complete!) ASDIRECTED XX 05/23/20 16:30 05/23/20 16:30 DC Ibuprofen (Advil) 400 mg Q6HP PRN PO PAIN 05/23/20 19:15 06/27/20 14:38 Lactated Ringer's 1,000 ml @ 75 mls/hr [id number] IV 06/23/20 12:30 06/23/20 14:30 UNV Magnesium Hydroxide (Milk Of Magnesia) 30 ml DAILYPRN PRN PO CONSTIPATION 05/23/20 19:15 Methylphenidate HCl (Ritalin) 5 mg QAM PO 06/02/20 09:00 06/07/20 08:28 DC 06/06/20 08:31 Miscellaneous (Unresolved Clarification Entry) SEE LABEL COMMENTS DAILY XX 06/07/20 09:00 06/07/20 11:01 DC Miscellaneous (Unresolved Clarification Entry) SEE LABEL COMMENTS DAILY XX 06/20/20 09:00 06/21/20 11:29 DC Miscellaneous (Unresolved Clarification Entry) SEE LABEL COMMENTS DAILY XX 06/23/20 09:00 06/23/20 15:38 DC Miscellaneous (Unresolved Clarification Entry) SEE LABEL COMMENTS DAILY XX 06/25/20 09:00 06/25/20 10:26 DC Multivitamins (Theragram-M) 1 tab DAILY PO 05/26/20 12:00 07/01/20 09:12 Nicotine (Nicoderm Cq 14mg) 1 patch DAILY TD 05/24/20 09:00 06/09/20 10:44 DC 06/06/20 08:30 Non-Formulary Medication ( See Comment Field Below ) SEE LABEL COMMENTS DAILY XX 06/01/20 09:00 06/03/20 10:07 DC Olanzapine (ZyPREXA ZYDIS) 5 mg BID PO 07/01/20 09:00 07/01/20 09:12 Olanzapine (ZyPREXA ZYDIS) 5 mg Q6HP PRN PO ANXIETY/AGITATION 05/24/20 00:40 06/01/20 15:33 DC 05/26/20 22:17 Olanzapine (ZyPREXA ZYDIS) 5 mg STAT STAT PO 06/06/20 17:32 06/06/20 17:33 DC 06/06/20 17:40 Olanzapine (ZyPREXA ZYDIS) 10 mg QHS PO 07/01/20 21:00 Cancel Olanzapine (ZyPREXA ZYDIS) 10 mg STAT STAT PO 05/24/20 00:37 05/24/20 00:39 DC 05/24/20 00:48 Olanzapine (ZyPREXA) 5 mg QHS PO 06/22/20 21:00 07/01/20 07:27 DC 06/30/20 20:47 Omeprazole (PriLOSEC) 40 mg DAILY PO 05/25/20 09:00 07/01/20 09:12 Ondansetron HCl (ZOFRAN INJection) 4 mg Q4HP PRN IV NAUSEA OR VOMITING 06/23/20 12:30 06/23/20 14:30 UNV Oxycodone HCl (Roxicodone, Oxyir) 5 mg ASDIRECTED PRN PO PAIN LEVEL 1-4 06/23/20 12:30 06/23/20 14:30 UNV Paroxetine HCl (PAXil) 20 mg DAILY PO 07/01/20 09:00 07/01/20 09:12 Propranolol HCl (Inderal) 20 mg BID PO 06/06/20 21:00 06/30/20 20:47 Propranolol HCl (Inderal) 20 mg TID PO 05/23/20 21:00 06/06/20 17:30 DC 06/06/20 08:31 Quetiapine Fumarate (SEROquel) 25 mg QHS PO 06/07/20 21:00 06/22/20 12:12 DC 06/21/20 19:56 Senna (Senokot) 1 tab DAILY PO 06/07/20 09:00 07/01/20 09:12 Sucralfate (Carafate Suspension) 1 gm AC PO 05/24/20 07:30 06/16/20 09:11 DC 06/13/20 06:35 Sucralfate (Carafate) 1 gm AC PO 05/23/20 17:30 05/24/20 07:41 DC 05/23/20 19:15 Trazodone HCl (Desyrel) 50 mg QHSP PRN PO INSOMNIA 05/23/20 19:15 06/08/20 08:44 DC 06/04/20 23:21 Valsartan (Diovan) 160 mg DAILY PO 05/25/20 09:00 06/30/20 09:54 Allergies Coded Allergies: Penicillins (Verified Allergy, Intermediate, HIVES, 04/09/20) SCARLETT STRONG M.D. July 01, 2020 09:57
[2020-07-01 18:22] VITALS: BP 132/78
[2020-07-01] MEDS ORDERED: OLANZapine ORAL DISINTEGRATING TAB 5MG PO SCH (21:00)
[2020-07-02 06:32] VITALS: BP 127/76
[2020-07-02] MEDS: PARoxetine 20MG TABLET PO SCH (09:18)
[2020-07-02] MEDS: OLANZapine ORAL DISINTEGRATING TAB 5MG PO SCH ×2 (09:18→20:41)
[2020-07-02] MEDS: SENNA 8.6 MG TAB (SENOKOT) PO SCH (09:18)
[2020-07-02] MEDS: MULTIVITAMINS/MINERALS THERAP 1 TAB PO SCH (09:18)
[2020-07-02] MEDS: OMEPRAZOLE 20 MG CAP PO SCH (09:18)
[2020-07-02] MEDS: PROPRANOLOL 20 MG TAB PO SCH ×2 (09:18→20:44)
[2020-07-02] MEDS: ASPIRIN 81MG ENTERIC TABLET PO SCH (09:18)
[2020-07-02] MEDS: VALSARTAN 80 MG TAB (DIOVAN) PO SCH (09:18)
[2020-07-02 16:45] VITALS: BP 120/64
[2020-07-03 06:33] VITALS: BP 109/61
[2020-07-03] MEDS: SENNA 8.6 MG TAB (SENOKOT) PO SCH (09:00)
[2020-07-03] MEDS: PROPRANOLOL 20 MG TAB PO SCH ×2 (09:00→21:00)
[2020-07-03] MEDS: VALSARTAN 80 MG TAB (DIOVAN) PO SCH (09:00)
[2020-07-03] MEDS: PARoxetine 20MG TABLET PO SCH (09:58)
[2020-07-03] MEDS: MULTIVITAMINS/MINERALS THERAP 1 TAB PO SCH (09:59)
[2020-07-03] MEDS: OMEPRAZOLE 20 MG CAP PO SCH (09:59)
[2020-07-03] MEDS: OLANZapine ORAL DISINTEGRATING TAB 5MG PO SCH ×2 (09:59→21:00)
[2020-07-03] MEDS: ASPIRIN 81MG ENTERIC TABLET PO SCH (09:59)
[2020-07-03 18:02] VITALS: BP 107/59
[2020-07-04 07:00] VITALS: BP 118/64
[2020-07-04] MEDS: MULTIVITAMINS/MINERALS THERAP 1 TAB PO SCH (09:16)
[2020-07-04] MEDS: PROPRANOLOL 20 MG TAB PO SCH ×2 (09:16→20:33)
[2020-07-04] MEDS: OLANZapine ORAL DISINTEGRATING TAB 5MG PO SCH ×2 (09:16→20:31)
[2020-07-04] MEDS: SENNA 8.6 MG TAB (SENOKOT) PO SCH (09:16)
[2020-07-04] MEDS: ASPIRIN 81MG ENTERIC TABLET PO SCH (09:17)
[2020-07-04] MEDS: OMEPRAZOLE 20 MG CAP PO SCH (09:17)
[2020-07-04] MEDS: VALSARTAN 80 MG TAB (DIOVAN) PO SCH (09:17)
[2020-07-04] MEDS: PARoxetine 20MG TABLET PO SCH (09:17)
--- NOTE | 2020-07-04 11:41 | MHIPNPDOC ---
[facility] Progress Note Progress Note DATE OF SERVICE: 07/04/20 The patient is cooperating with the medicine and has not shown any incontinence or any other bizarre behavior. He is a however, extremely guarded, evasive and preoccupied and continued to deny any problems and showing no improvement. He is accepted by [facility] and is scheduled for transfer on the Saturday HISTORY: . VITAL SIGNS: See below. NEW TEST RESULTS: . CURRENT MEDICATIONS: See below. MENTAL STATUS EXAMINATION: Patient is a 55-year old male, who is in no acute distress. Speech: Is , not productive at all and evasive. Language skills are poor. Thought processes including: Showing blocking and poverty of thoughts. Thought content: Superficially denies any problem. Abstract reasoning, and computation: , Very poor. Description of associations: Blocking, lacking any spontaneous,. Description of abnormal or psychotic thoughts: Marked denial. Judgment: poor. Insight: poor. Orientation: , Oriented to place, person. Recent and remote memory: , Poor. Attention span and concentration: Poor . Language: . Fund of knowledge: , Very poor. Mood: [, Anxious, preoccupied but denied any problem]. Affect: [Blunted]. DIAGNOsis 1. . Major depression with psychotic feature 2. . 3. . ASSESSMENT:[No improvement] MANAGEMENT PLAN: Waiting for transfer . TIME SPENT: [15] minutes. Vital Signs Vital Signs Date Time Temp Pulse Resp B/P (MAP) Pulse Ox O2 Delivery O2 Flow Rate FiO2 07/04/20 09:17 118/64 07/04/20 09:16 73 07/04/20 07:00 98.8 20 95 Room Air Current Medications Current Medications Medications (Trade) Dose Ordered Sig/Shanell Route PRN Reason Start Time Stop Time Status Last Admin Dose Admin Al Hydrox/Mg Hydrox/Simethicone (Mylanta) 30 ml Q4HP PRN PO HEARTBURN/INDIGESTION 05/23/20 19:15 05/29/20 19:38 Albuterol Sulfate (Proventil, Ventolin Hfa) 2 puff QID PRN INH SOB/WHEEZING 05/23/20 19:15 06/28/20 08:02 Amlodipine Besylate (Norvasc) 5 mg DAILY PO 05/24/20 17:40 06/06/20 17:30 DC 06/06/20 08:31 Aspirin (Ecotrin) 81 mg DAILY PO 05/24/20 09:00 07/04/20 09:17 Cyanocobalamin (Vitamin B12 Injection) 1,000 mcg Q7D@09 SC 05/27/20 09:00 06/03/20 10:00 Fentanyl Citrate (Sublimaze) 25 mcg Q5MP PRN IV PAIN LEVEL 5-10 06/23/20 12:30 06/23/20 14:30 UNV Fluoxetine HCl (PROzac) 10 mg DAILY PO 05/24/20 09:00 05/31/20 16:48 DC 05/31/20 09:41 Fluoxetine HCl (PROzac) 10 mg DAILY PO 06/07/20 09:00 06/22/20 12:12 DC 06/22/20 08:55 Fluoxetine HCl (PROzac) 20 mg DAILY PO 06/01/20 09:00 06/01/20 15:33 DC 06/01/20 08:28 Fluoxetine HCl (PROzac) 20 mg DAILY PO 06/23/20 09:00 07/01/20 07:27 DC 06/30/20 09:49 Home Med (Med Rec Complete!) ASDIRECTED XX 05/23/20 16:30 05/23/20 16:30 DC Ibuprofen (Advil) 400 mg Q6HP PRN PO PAIN 05/23/20 19:15 06/27/20 14:38 Lactated Ringer's 1,000 ml @ 75 mls/hr [id number] IV 06/23/20 12:30 06/23/20 14:30 UNV Magnesium Hydroxide (Milk Of Magnesia) 30 ml DAILYPRN PRN PO CONSTIPATION 05/23/20 19:15 Methylphenidate HCl (Ritalin) 5 mg QAM PO 06/02/20 09:00 06/07/20 08:28 DC 06/06/20 08:31 Miscellaneous (Unresolved Clarification Entry) SEE LABEL COMMENTS DAILY XX 06/07/20 09:00 06/07/20 11:01 DC Miscellaneous (Unresolved Clarification Entry) SEE LABEL COMMENTS DAILY XX 06/20/20 09:00 06/21/20 11:29 DC Miscellaneous (Unresolved Clarification Entry) SEE LABEL COMMENTS DAILY XX 06/23/20 09:00 06/23/20 15:38 DC Miscellaneous (Unresolved Clarification Entry) SEE LABEL COMMENTS DAILY XX 06/25/20 09:00 06/25/20 10:26 DC Multivitamins (Theragram-M) 1 tab DAILY PO 05/26/20 12:00 07/04/20 09:16 Nicotine (Nicoderm Cq 14mg) 1 patch DAILY TD 05/24/20 09:00 06/09/20 10:44 DC 06/06/20 08:30 Non-Formulary Medication ( See Comment Field Below ) SEE LABEL COMMENTS DAILY XX 06/01/20 09:00 06/03/20 10:07 DC Olanzapine (ZyPREXA ZYDIS) 5 mg BID PO 07/01/20 09:00 07/04/20 09:16 Olanzapine (ZyPREXA ZYDIS) 5 mg Q6HP PRN PO ANXIETY/AGITATION 05/24/20 00:40 06/01/20 15:33 DC 05/26/20 22:17 Olanzapine (ZyPREXA ZYDIS) 5 mg STAT STAT PO 06/06/20 17:32 06/06/20 17:33 DC 06/06/20 17:40 Olanzapine (ZyPREXA ZYDIS) 10 mg QHS PO 07/01/20 21:00 Cancel Olanzapine (ZyPREXA ZYDIS) 10 mg STAT STAT PO 05/24/20 00:37 05/24/20 00:39 DC 05/24/20 00:48 Olanzapine (ZyPREXA) 5 mg QHS PO 06/22/20 21:00 07/01/20 07:27 DC 06/30/20 20:47 Omeprazole (PriLOSEC) 40 mg DAILY PO 05/25/20 09:00 07/04/20 09:17 Ondansetron HCl (ZOFRAN INJection) 4 mg Q4HP PRN IV NAUSEA OR VOMITING 06/23/20 12:30 06/23/20 14:30 UNV Oxycodone HCl (Roxicodone, Oxyir) 5 mg ASDIRECTED PRN PO PAIN LEVEL 1-4 06/23/20 12:30 06/23/20 14:30 UNV Paroxetine HCl (PAXil) 20 mg DAILY PO 07/01/20 09:00 07/04/20 09:17 Propranolol HCl (Inderal) 20 mg BID PO 06/06/20 21:00 07/04/20 09:16 Propranolol HCl (Inderal) 20 mg TID PO 05/23/20 21:00 06/06/20 17:30 DC 06/06/20 08:31 Quetiapine Fumarate (SEROquel) 25 mg QHS PO 06/07/20 21:00 06/22/20 12:12 DC 06/21/20 19:56 Senna (Senokot) 1 tab DAILY PO 06/07/20 09:00 07/04/20 09:16 Sucralfate (Carafate Suspension) 1 gm AC PO 05/24/20 07:30 06/16/20 09:11 DC 06/13/20 06:35 Sucralfate (Carafate) 1 gm AC PO 05/23/20 17:30 05/24/20 07:41 DC 05/23/20 19:15 Trazodone HCl (Desyrel) 50 mg QHSP PRN PO INSOMNIA 05/23/20 19:15 06/08/20 08:44 DC 06/04/20 23:21 Valsartan (Diovan) 160 mg DAILY PO 05/25/20 09:00 07/04/20 09:17 Allergies Coded Allergies: Penicillins (Verified Allergy, Intermediate, HIVES, 04/09/20) SCARLETT STRONG M.D. July 04, 2020 11:41
[2020-07-04 18:49] VITALS: BP 116/68
[2020-07-05] MEDS: OLANZapine ORAL DISINTEGRATING TAB 5MG PO SCH ×3 (08:15→21:30)
[2020-07-05] MEDS: ASPIRIN 81MG ENTERIC TABLET PO SCH (08:15)
[2020-07-05] MEDS: SENNA 8.6 MG TAB (SENOKOT) PO SCH (08:15)
[2020-07-05] MEDS: VALSARTAN 80 MG TAB (DIOVAN) PO SCH (08:15)
[2020-07-05] MEDS: OMEPRAZOLE 20 MG CAP PO SCH (08:15)
[2020-07-05] MEDS: PROPRANOLOL 20 MG TAB PO SCH ×3 (08:16→21:32)
[2020-07-05] MEDS: MULTIVITAMINS/MINERALS THERAP 1 TAB PO SCH (08:16)
[2020-07-05] MEDS: PARoxetine 20MG TABLET PO SCH (08:16)
--- NOTE | 2020-07-05 10:32 | MHIPNPDOC ---
[facility] Progress Note Progress Note DATE OF SERVICE: 07/05/20 The patient appears very much preoccupied superficial and anxious, but has been in good control. He has not shown any regressive behavior such as incontinence and has been taking his medicine, both Zyprexa and Paxil without any complaint of side effect. He is however extremely preoccupied, superficial, and continued to deny any problems at all, and showing very little change in his mental status and behavior HISTORY: . VITAL SIGNS: See below. NEW TEST RESULTS: . CURRENT MEDICATIONS: See below. MENTAL STATUS EXAMINATION: Patient is a 55-year old male, who is pacing the hardwick moderately disheveled. Speech: Is , not spontaneous, not productive. Language skills are , poor. Thought processes including: Answers yes and no but not able to elaborate. Thought content: Poverty of thoughts. Abstract reasoning, and computation: , Poor. Description of associations: Blunted with some blocking and poverty of thoughts. Description of abnormal or psychotic thoughts: Superficial. He denies any hallucination and denies any paranoia and denies any suicidal thoughts. Judgment: , Poor. Insight: very poor. Orientation: , Oriented to place., And person Recent and remote memory: Poor . Attention span and concentration: [, Poor]. Language: . Fund of knowledge: , Poor. Mood: [Appears anxious but claimed he feels fine]. Affect: [Extremely blunted]. DIAGNOSES: 1. . Major depression with psychotic feature 2. . 3. . ASSESSMENT:[No significant improvement] MANAGEMENT PLAN: [. Continue with the current medicine, awaiting transfer to [facility]]. TIME SPENT: [15] minutes. Vital Signs Vital Signs Date Time Temp Pulse Resp B/P (MAP) Pulse Ox O2 Delivery O2 Flow Rate FiO2 07/05/20 08:16 75 07/05/20 08:15 124/86 07/04/20 18:49 97.8 16 07/04/20 07:00 95 Room Air Current Medications Current Medications Medications (Trade) Dose Ordered Sig/Shanell Route PRN Reason Start Time Stop Time Status Last Admin Dose Admin Al Hydrox/Mg Hydrox/Simethicone (Mylanta) 30 ml Q4HP PRN PO HEARTBURN/INDIGESTION 05/23/20 19:15 05/29/20 19:38 Albuterol Sulfate (Proventil, Ventolin Hfa) 2 puff QID PRN INH SOB/WHEEZING 05/23/20 19:15 06/28/20 08:02 Amlodipine Besylate (Norvasc) 5 mg DAILY PO 05/24/20 17:40 06/06/20 17:30 DC 06/06/20 08:31 Aspirin (Ecotrin) 81 mg DAILY PO 05/24/20 09:00 07/05/20 08:15 Cyanocobalamin (Vitamin B12 Injection) 1,000 mcg Q7D@09 SC 05/27/20 09:00 06/03/20 10:00 Fentanyl Citrate (Sublimaze) 25 mcg Q5MP PRN IV PAIN LEVEL 5-10 06/23/20 12:30 06/23/20 14:30 UNV Fluoxetine HCl (PROzac) 10 mg DAILY PO 05/24/20 09:00 05/31/20 16:48 DC 05/31/20 09:41 Fluoxetine HCl (PROzac) 10 mg DAILY PO 06/07/20 09:00 06/22/20 12:12 DC 06/22/20 08:55 Fluoxetine HCl (PROzac) 20 mg DAILY PO 06/01/20 09:00 06/01/20 15:33 DC 06/01/20 08:28 Fluoxetine HCl (PROzac) 20 mg DAILY PO 06/23/20 09:00 07/01/20 07:27 DC 06/30/20 09:49 Home Med (Med Rec Complete!) ASDIRECTED XX 05/23/20 16:30 05/23/20 16:30 DC Ibuprofen (Advil) 400 mg Q6HP PRN PO PAIN 05/23/20 19:15 06/27/20 14:38 Lactated Ringer's 1,000 ml @ 75 mls/hr [id number] IV 06/23/20 12:30 06/23/20 14:30 UNV Magnesium Hydroxide (Milk Of Magnesia) 30 ml DAILYPRN PRN PO CONSTIPATION 05/23/20 19:15 Methylphenidate HCl (Ritalin) 5 mg QAM PO 06/02/20 09:00 06/07/20 08:28 DC 06/06/20 08:31 Miscellaneous (Unresolved Clarification Entry) SEE LABEL COMMENTS DAILY XX 06/07/20 09:00 06/07/20 11:01 DC Miscellaneous (Unresolved Clarification Entry) SEE LABEL COMMENTS DAILY XX 06/20/20 09:00 06/21/20 11:29 DC Miscellaneous (Unresolved Clarification Entry) SEE LABEL COMMENTS DAILY XX 06/23/20 09:00 06/23/20 15:38 DC Miscellaneous (Unresolved Clarification Entry) SEE LABEL COMMENTS DAILY XX 06/25/20 09:00 06/25/20 10:26 DC Miscellaneous (Unresolved Clarification Entry) SEE LABEL COMMENTS DAILY XX 07/04/20 09:00 Multivitamins (Theragram-M) 1 tab DAILY PO 05/26/20 12:00 07/05/20 08:16 Nicotine (Nicoderm Cq 14mg) 1 patch DAILY TD 05/24/20 09:00 06/09/20 10:44 DC 06/06/20 08:30 Non-Formulary Medication ( See Comment Field Below ) SEE LABEL COMMENTS DAILY XX 06/01/20 09:00 06/03/20 10:07 DC Olanzapine (ZyPREXA ZYDIS) 5 mg BID PO 07/01/20 09:00 07/05/20 08:15 Olanzapine (ZyPREXA ZYDIS) 5 mg Q6HP PRN PO ANXIETY/AGITATION 05/24/20 00:40 06/01/20 15:33 DC 05/26/20 22:17 Olanzapine (ZyPREXA ZYDIS) 5 mg STAT STAT PO 06/06/20 17:32 06/06/20 17:33 DC 06/06/20 17:40 Olanzapine (ZyPREXA ZYDIS) 10 mg QHS PO 07/01/20 21:00 Cancel Olanzapine (ZyPREXA ZYDIS) 10 mg STAT STAT PO 05/24/20 00:37 05/24/20 00:39 DC 05/24/20 00:48 Olanzapine (ZyPREXA) 5 mg QHS PO 06/22/20 21:00 07/01/20 07:27 DC 06/30/20 20:47 Omeprazole (PriLOSEC) 40 mg DAILY PO 05/25/20 09:00 07/05/20 08:15 Ondansetron HCl (ZOFRAN INJection) 4 mg Q4HP PRN IV NAUSEA OR VOMITING 06/23/20 12:30 06/23/20 14:30 UNV Oxycodone HCl (Roxicodone, Oxyir) 5 mg ASDIRECTED PRN PO PAIN LEVEL 1-4 06/23/20 12:30 06/23/20 14:30 UNV Paroxetine HCl (PAXil) 20 mg DAILY PO 07/01/20 09:00 07/05/20 08:16 Propranolol HCl (Inderal) 20 mg BID PO 06/06/20 21:00 07/05/20 08:16 Propranolol HCl (Inderal) 20 mg TID PO 05/23/20 21:00 06/06/20 17:30 DC 06/06/20 08:31 Quetiapine Fumarate (SEROquel) 25 mg QHS PO 06/07/20 21:00 06/22/20 12:12 DC 06/21/20 19:56 Senna (Senokot) 1 tab DAILY PO 06/07/20 09:00 07/05/20 08:15 Sucralfate (Carafate Suspension) 1 gm AC PO 05/24/20 07:30 06/16/20 09:11 DC 06/13/20 06:35 Sucralfate (Carafate) 1 gm AC PO 05/23/20 17:30 05/24/20 07:41 DC 05/23/20 19:15 Trazodone HCl (Desyrel) 50 mg QHSP PRN PO INSOMNIA 05/23/20 19:15 06/08/20 08:44 DC 06/04/20 23:21 Valsartan (Diovan) 160 mg DAILY PO 05/25/20 09:00 07/05/20 08:15 Allergies Coded Allergies: Penicillins (Verified Allergy, Intermediate, HIVES, 04/09/20) SCARLETT STRONG M.D. July 05, 2020 10:32
[2020-07-05 16:07] VITALS: BP 117/76
[2020-07-06] MEDS ORDERED: PARO20TA3 PO (08:59)
[2020-07-06] MEDS ORDERED: CYAN1000VL SC (08:59)
[2020-07-06] MEDS ORDERED: VITMTA PO (08:59)
[2020-07-06] MEDS ORDERED: SENN18TA PO (09:00)
[2020-07-06] MEDS ORDERED: OLAN5ZYD PO (09:00)
[2020-07-06 09:19] VITALS: BP 116/72
[2020-07-06] MEDS: PARoxetine 20MG TABLET PO SCH (09:19)
[2020-07-06] MEDS: PROPRANOLOL 20 MG TAB PO SCH (09:19)
[2020-07-06] MEDS: SENNA 8.6 MG TAB (SENOKOT) PO SCH (09:19)
[2020-07-06] MEDS: MULTIVITAMINS/MINERALS THERAP 1 TAB PO SCH (09:19)
[2020-07-06] MEDS: VALSARTAN 80 MG TAB (DIOVAN) PO SCH (09:19)
[2020-07-06] MEDS: ASPIRIN 81MG ENTERIC TABLET PO SCH (09:19)
[2020-07-06] MEDS: OMEPRAZOLE 20 MG CAP PO SCH (09:19)
[2020-07-06] MEDS: OLANZapine ORAL DISINTEGRATING TAB 5MG PO SCH (09:20)
--- NOTE | 2020-07-06 09:21 | MHDSPDOC ---
[facility] Discharge Summary Discharge Summary DATE OF ADMISSION: May 23, 2020 at 19:11 DATE OF DISCHARGE: 07/06/2020 DISCHARGE DIAGNOSES: 1. . Major depression, recurrent, severe with psychosis 2. . 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 Patient developed apparently had a several orthopedic surgery became physically disabled and has been suffering from chronic pain and severe anxiety. Patient wants the prescribed opiate pain medicine and the benzodiazepine and he developed a degree of dependency and had gone through some withdrawal phase. Subsequently, he developed severe depression, had 3 inpatient admissions and psychiatrically between 2019 and April 2020. He was discharged on May 02, but apparently became increasingly paranoid, hallucinating and severely depressed and was brought to emergency room by police after he threatened to cut his throat with a scissor at home. His also reported that she has been complaining over hearing voices and also preoccupied with the thoughts that his body was filled with air and he was trying to deflate his body by stabbing himself. He was extremely guarded, preoccupied, withdrawn and actively hallucinating and admits to suicidal thoughts and also admits to voices telling him that he should kill himself. CONSULTANTS INVOLVED: None TREATMENT AND PROGRESS ON THE UNIT : Patient was maintained on his medical medi cations which includes Diovan and 60 mg daily, senna one tablet daily. Inderal 20 mg twice a day and also maintained on his multiple vitamin. Cyanocobalamin inhalers, Prilosec 40 mg daily and aspirin. For his depression and psychosis. He was continued on his Prozac 20 mg daily and Zyprexa 5 mg at HS initially patient initially was somewhat reluctant to take medicine and have the several times refused to his psychotropic medication. After education, and support and strong reassurance. He started to cooperate with the medicine again but due to his rather frail physical condition, we were unable to increase his medication much more., The patient showed the better little changed and no improvement.. He remains extremely regressed, withdrawn, anxious, and verbally not responsive much. He is pacing the hallways and when approached. He always responds that he feels great and he is doing great. Attempts were made to further evaluate his hallucinations and his lethality, but patient is showing absolutely no insight and is avoiding any serious discussion showing marked poverty of thoughts and unable to engage in any meaningful discussion for his treatment. He is eating, sleeping, but is weight has not increased his routine lab of the CBC and CMP is unremarkable with no gross abnormal findings and is in no acute physical distress but he had a period where he didn't want to eat and was very lethargic for a while. Now he is eating better and not as lethargic. We increased his Zyprexa to 5 mg twice a day and changed his Prozac to Paxil due to significant anxiety and he hasn't been fully compliant with this medicine, but is not showing any improvement. HOSPITAL COURSE: As described in the section of his treatment and progress he is, not showing any improvement. He remains markedly anxious, preoccupied, and verbally not engaging and claims that he is feeling wonderful and he has no problems and doesn't feel he needs any further treatment. He appears extremely anxious at times, fearful and watchful and appears paranoid and remains extremely depressed and remains a significant risk to himself due to his severe depression and lethality posted by his psychotic symptoms. DISCHARGE ASSESSMENT: Remained grossly depressed, paranoid, anxious and fearful posing significant danger to himself. MENTAL STATUS EXAMINATION ON DISCHARGE: Patient is a 55-year old male, who is , anxious, pacing, before. Speech is , not productive at all. Language skills are , poor. Thought processes including: Showing marked poverty of thoughts and marked to deny her. Thought content: Appears anxious, fearful, paranoid and depressed, but denies any problems. Abstract reasoning, and computation: , Poor. Description of associations: , Poor. Description of abnormal or psychotic thoughts: Patient was expressing suicidal thoughts and was reporting auditory hallucination telling him to kill himself. Judgment: poor. Insight: nil. Orientation to , oriented to place and person. Recent and remote memory: poor. Attention span and concentration: poor. Language: . Fund of knowledge: poor. Mood: , Anxious, preoccupied, appears depressed and paranoid. Affect: Blunted, preoccupied, superficial, very narrow range. MEDICATIONS ON DISCHARGE: - for . For discharge. Medication reconciliation - for . - for . PLAN/FOLLOWUP ARRANGEMENTS: Being transferred to [facility]. The amount of time spent in the coordination of care for this patient was approximately 45 minutes. ETOH/Disorder Med Rx ETOH/DRUG DISORDER RX: N/A Vital Signs/I&Os Vital Signs Date Time Temp Pulse Resp B/P (MAP) Pulse Ox O2 Delivery O2 Flow Rate FiO2 07/06/20 06:51 98.3 18 07/05/20 21:32 102 135/88 07/05/20 16:07 94 Room Air Laboratory Data Microbiology Microbiology 07/06/20 Respiratory Virus Panel (PCR) (TODD), Received Pending Medications Scheduled Amlodipine Besylate/Valsartan (Amlodipine-Valsartan 5-160 mg) 1 Each Tablet, 1 TAB PO DAILY, (Reported) Aspirin (Aspirin EC) 81 Mg Tablet.dr, 81 MG PO DAILY, (Reported) Cyanocobalamin (Cyanocobalamin Injection) 1,000 Mcg/1 Ml Vial, 1,000 MCG SC Q7D@09 for supplement for 7 Days, #7 Multivitamins (Thera M Plus Tablet) 1 Each Tablet, 1 TAB PO DAILY for supplement for 7 Days, #7 Olanzapine (Olanzapine Odt) 5 Mg Tab.rapdis, 5 MG PO BID for psychosis for 7 Days, #14 Omeprazole (Omeprazole) 40 Mg Capsule.dr, 40 MG PO DAILY, (Reported) Paroxetine HCl (Paroxetine HCl) 20 Mg Tablet, 20 MG PO DAILY for depression for 7 Days, #7 Propranolol HCl (Propranolol HCl) 20 Mg Tablet, 20 MG PO TID, (Reported) Senna (Senna Lax) 8.6 Mg Tablet, 1 TAB PO DAILY for costipation for 7 Days, #7 Scheduled PRN Albuterol Sulfate (Ventolin Hfa) 18 Gm Hfa.aer.ad, 2 PUFFS INH QID PRN for SOB/WHEEZING, (Reported) Allergies Coded Allergies: Penicillins (Verified Allergy, Intermediate, HIVES, 04/09/20) SCARLETT STRONG M.D. July 06, 2020 09:21
== END 2020-07-06 13:15 | DRG 885 ==
LOC: M ED 11:13 → M ED INP 19:11 → M PSY 05-24 00:28
PROVIDERS: ADMIT Psychiatry & Neurology Psychiatry; ATTEND Psychiatry & Neurology Psychiatry
DX: F33.3 Major depressive disorder, recurrent, severe with psychotic symptoms (principal); Z79.82 Long term (current) use of aspirin; Z79.899 Other long term (current) drug therapy; Z88.0 Allergy status to penicillin; M54.5 Low back pain; R91.8 Other nonspecific abnormal finding of lung field; E55.9 Vitamin D deficiency, unspecified; F41.1 Generalized anxiety disorder; I10 Essential (primary) hypertension; D53.9 Nutritional anemia, unspecified; F17.200 Nicotine dependence, unspecified, uncomplicated; I95.9 Hypotension, unspecified

== ENCOUNTER → 2020-12-28 | Outpatient (CLI) | payer MEDICARE, MEDICAID ==
[~2020-12-28] MED LIST changes: +CYAN1000VL SC; -OLAN10TA2 PO; +OLAN1TAB20 PO; +OLAN5ZYD PO; -OLAN7.5T PO; +OLAN7.5T8 PO; +PARO20TA3 PO; +PROP20TA PO; +SENN18TA PO; +VENTAER INH; +VITMTA PO
== END ==
LOC: M PAIN 11:30
PROVIDERS: ATTEND Anesthesiology
DX: M51.16 Intervertebral disc disorders with radiculopathy, lumbar region (principal); G89.29 Other chronic pain; E55.9 Vitamin D deficiency, unspecified; J44.9 Chronic obstructive pulmonary disease, unspecified; F17.210 Nicotine dependence, cigarettes, uncomplicated; Z86.59 Personal history of other mental and behavioral disorders; Z88.0 Allergy status to penicillin; Z88.8 Allergy status to other drugs, medicaments and biological substances; Z79.82 Long term (current) use of aspirin; Z79.84 Long term (current) use of oral hypoglycemic drugs; Z79.899 Other long term (current) drug therapy

== ENCOUNTER → 2021-01-10 | Outpatient (REF) | payer MEDICARE, MEDICAID ==
[~2021-01-10] MED LIST changes: -FLUO10CA16 PO; +FLUO10CA18 PO; +LOSA50TA28 PO; -LOSA50TA88 PO; -OMEP-221 PO; +OMEP40CA5 PO
[2021-01-10 18:19] LABS: HEMATOCRIT 38.1 % (42.0-52.0); HEMOGLOBIN 12.6 g/dl (13.5-17.5); MEAN CORPUSCULAR HEMOGLOBIN 31.4 pg (27.0-33.0); MEAN CORPUSCULAR HGB CONC 33.1 g/dl (32.0-36.5); PLATELET COUNT, AUTOMATED 229 10^3/uL (150-450); RED BLOOD COUNT 4.01 10^6/uL (4.30-6.10)
[2021-01-10 18:22] LABS: ALBUMIN 3.3 GM/DL (3.2-5.2); ALT/SGPT 22 U/L (12-78); BILIRUBIN,TOTAL 0.2 MG/DL (0.2-1.0); BLOOD UREA NITROGEN 16 MG/DL (7-18); CALCIUM LEVEL 8.5 MG/DL (8.5-10.1); CARBON DIOXIDE LEVEL 28 MEQ/L (21-32); CHLORIDE LEVEL 109 MEQ/L (98-107); CHOLESTEROL LEVEL 193 MG/DL (<200); CHOLESTEROL RISK RATIO 4.595 (<5); CREATININE FOR GFR 1.22 MG/DL (0.70-1.30); GLOMERULAR FILTRATION RATE > 60.0 (>56); GLUCOSE, FASTING 79 MG/DL (70-100); HDL CHOLESTEROL 42 MG/DL (>40); LDL CHOLESTEROL 93 MG/DL (<100); NON-HDL-C 151 MG/DL; POTASSIUM SERUM 4.6 MEQ/L (3.5-5.1); SODIUM LEVEL 142 MEQ/L (136-145); TOTAL PROTEIN 6.6 GM/DL (6.4-8.2); TRIGLYCERIDES LEVEL 291 MG/DL (<150)
[2021-01-10 18:52] LABS: CREATININE, URINE 53.7 MG/DL; MALB URINE SIEMENS < 5.0 MG/L; MAU/CREAT RATIO 9.3 MCG/MG (0.0-30.0)
== END ==
LOC: M SFHCADAM 14:17
PROVIDERS: ATTEND Physician Assistant
DX: E78.5 Hyperlipidemia, unspecified (principal); Z12.5 Encounter for screening for malignant neoplasm of prostate; F17.210 Nicotine dependence, cigarettes, uncomplicated; J44.9 Chronic obstructive pulmonary disease, unspecified

== ENCOUNTER → 2021-01-12 | Outpatient (CLI) | payer OTHER, MEDICARE, MEDICAID | LOC: M PAIN 15:00 | PROVIDERS: ATTEND Anesthesiology | DX: M51.16 Intervertebral disc disorders with radiculopathy, lumbar region (principal); G89.29 Other chronic pain; F17.210 Nicotine dependence, cigarettes, uncomplicated; Z79.82 Long term (current) use of aspirin; Z79.899 Other long term (current) drug therapy ==

== ENCOUNTER → 2021-01-12 | Outpatient (REF) | payer MEDICARE, MEDICAID ==
[~2021-01-12] MED LIST changes: +FLUO10CA16 PO; -FLUO10CA18 PO; -LOSA50TA28 PO; +LOSA50TA88 PO; +OMEP-221 PO; -OMEP40CA5 PO
[2021-01-12 17:04] LABS: FOLATE 10.9 NG/ML; TOTAL 25(OH) VITAMIN D 21.5 NG/ML (30.0-100.0)
== END ==
LOC: M SFHCADAM 13:38
PROVIDERS: ATTEND Physician Assistant
DX: E53.8 Deficiency of other specified B group vitamins (principal); Z12.5 Encounter for screening for malignant neoplasm of prostate; Z79.899 Other long term (current) drug therapy
CPT/HCPCS: 82306; 82607; 82746; G0103; G0463

== ENCOUNTER → 2021-01-18 | Outpatient (CLI) | payer MEDICARE, MEDICAID | LOC: M LABSMTC 11:37 | PROVIDERS: ATTEND Anesthesiology | DX: Z20.828 Contact with and (suspected) exposure to other viral communicable diseases (principal); Z11.52 Encounter for screening for COVID-19 ==

== ENCOUNTER → 2021-01-23 | Outpatient (CLI) | payer MEDICARE, MEDICAID ==
[~2021-01-23] MED LIST changes: +ISOVUE-M 300 61% 15ML VIAL As Ordered ONE; +LIDOCAINE 1% SDV 30ML VIAL As Ordered ONE; +ONDANSETRON 4 MG ORAL DISINTEGRATING TAB As Ordered ONE; +diazePAM 5MG TABLET As Ordered ONE; +diphenhydrAMINE 25MG CAP As Ordered ONE; +methylPREDNISolone SUSP 40MG/ML 1ML VIAL (DEPO MEDROL) As Ordered ONE; +oxyCODONE 5MG TAB As Ordered ONE
--- NOTE | 2021-01-24 17:33 | REP ---
INDICATION: LUMBAR EPIDURAL STEROID INJECTION. COMPARISON: None. TECHNIQUE: Single C-arm view showing lower lumbar anatomy. 26.5 seconds of fluoroscopy time were reported. FINDINGS: Single C-arm view showing lumbar spine anatomy. Images were obtained using last image hold technology. The images reveal lumbar spine anatomy, needle placement, and contrast associated with injection procedure. IMPRESSION: Procedural imaging. <Electronically signed by Estefanía Astudillo > 01/24/21 [id number] <Electronically signed by Bay Petersen > 01/24/21 [id number]
== END ==
LOC: M PAIN 11:00
PROVIDERS: ATTEND Anesthesiology
DX: M51.16 Intervertebral disc disorders with radiculopathy, lumbar region (principal); E55.9 Vitamin D deficiency, unspecified; J44.9 Chronic obstructive pulmonary disease, unspecified; F17.210 Nicotine dependence, cigarettes, uncomplicated; Z86.59 Personal history of other mental and behavioral disorders; Z88.0 Allergy status to penicillin; Z88.8 Allergy status to other drugs, medicaments and biological substances; Z79.82 Long term (current) use of aspirin; Z79.899 Other long term (current) drug therapy
CPT/HCPCS: 62323; J1030; Q0162; Q9967

== ENCOUNTER → 2021-02-13 | Outpatient (CLI) | payer MEDICARE, MEDICAID ==
[~2021-02-13] MED LIST changes: -ISOVUE-M 300 61% 15ML VIAL As Ordered ONE; -LIDOCAINE 1% SDV 30ML VIAL As Ordered ONE; -ONDANSETRON 4 MG ORAL DISINTEGRATING TAB As Ordered ONE; -diazePAM 5MG TABLET As Ordered ONE; -diphenhydrAMINE 25MG CAP As Ordered ONE; -methylPREDNISolone SUSP 40MG/ML 1ML VIAL (DEPO MEDROL) As Ordered ONE; -oxyCODONE 5MG TAB As Ordered ONE
== END ==
LOC: M PAIN 09:00
PROVIDERS: ATTEND Nurse Practitioner Family
DX: M51.16 Intervertebral disc disorders with radiculopathy, lumbar region (principal); G89.29 Other chronic pain; E55.9 Vitamin D deficiency, unspecified; J44.9 Chronic obstructive pulmonary disease, unspecified; F17.210 Nicotine dependence, cigarettes, uncomplicated; Z86.59 Personal history of other mental and behavioral disorders; Z88.0 Allergy status to penicillin; Z88.8 Allergy status to other drugs, medicaments and biological substances; Z79.82 Long term (current) use of aspirin; Z79.899 Other long term (current) drug therapy

== ENCOUNTER → 2021-03-30 | Outpatient (CLI) | payer MEDICARE, MEDICAID ==
[~2021-03-30] MED LIST changes: -FLUO10CA16 PO; +FLUO10CA18 PO; +LOSA50TA28 PO; -LOSA50TA88 PO; -OMEP-221 PO; +OMEP40CA5 PO
== END ==
LOC: M RAD 13:10
PROVIDERS: ATTEND Physician Assistant
DX: F17.210 Nicotine dependence, cigarettes, uncomplicated (principal)

== ENCOUNTER → 2021-04-05 | Outpatient (CLI) | payer MEDICARE, MEDICAID | LOC: M LABSMTC 09:47 | PROVIDERS: ATTEND Anesthesiology | DX: Z01.812 Encounter for preprocedural laboratory examination (principal); Z20.822 Contact with and (suspected) exposure to COVID-19 ==

== ENCOUNTER → 2021-04-10 | Outpatient (CLI) | payer MEDICARE, MEDICAID ==
[~2021-04-10] MED LIST changes: +BUPIVACAINE HCL 0.25% 30ML VIAL As Ordered ONE; +ISOVUE-M 300 61% 15ML VIAL As Ordered ONE; +LIDOCAINE 1% SDV 30ML VIAL As Ordered ONE; +ONDANSETRON 4 MG ORAL DISINTEGRATING TAB As Ordered ONE; +dexameTHASONE 10MG/1ML VIAL PRES.FREE (J1100 PER 1MG) As Ordered ONE; +diazePAM 5MG TABLET As Ordered ONE; +diphenhydrAMINE 25MG CAP As Ordered ONE; +oxyCODONE 5MG TAB As Ordered ONE
== END ==
LOC: M PAIN 13:45
PROVIDERS: ATTEND Anesthesiology
DX: M51.16 Intervertebral disc disorders with radiculopathy, lumbar region (principal); E55.9 Vitamin D deficiency, unspecified; J44.9 Chronic obstructive pulmonary disease, unspecified; F17.210 Nicotine dependence, cigarettes, uncomplicated; Z86.59 Personal history of other mental and behavioral disorders; Z88.0 Allergy status to penicillin; Z88.8 Allergy status to other drugs, medicaments and biological substances; Z79.82 Long term (current) use of aspirin; Z79.899 Other long term (current) drug therapy
CPT/HCPCS: 64483; J1100; Q0162; Q9967

== ENCOUNTER → 2021-05-01 | Outpatient (CLI) | payer MEDICARE, MEDICAID ==
[~2021-05-01] MED LIST changes: -BUPIVACAINE HCL 0.25% 30ML VIAL As Ordered ONE; -ISOVUE-M 300 61% 15ML VIAL As Ordered ONE; -LIDOCAINE 1% SDV 30ML VIAL As Ordered ONE; -ONDANSETRON 4 MG ORAL DISINTEGRATING TAB As Ordered ONE; -dexameTHASONE 10MG/1ML VIAL PRES.FREE (J1100 PER 1MG) As Ordered ONE; -diazePAM 5MG TABLET As Ordered ONE; -diphenhydrAMINE 25MG CAP As Ordered ONE; -oxyCODONE 5MG TAB As Ordered ONE
== END ==
LOC: M PAIN 10:15
PROVIDERS: ATTEND Nurse Practitioner Family
DX: M51.16 Intervertebral disc disorders with radiculopathy, lumbar region (principal); G89.29 Other chronic pain; E55.9 Vitamin D deficiency, unspecified; J44.9 Chronic obstructive pulmonary disease, unspecified; F17.210 Nicotine dependence, cigarettes, uncomplicated; Z86.59 Personal history of other mental and behavioral disorders; Z88.0 Allergy status to penicillin; Z88.8 Allergy status to other drugs, medicaments and biological substances; Z79.82 Long term (current) use of aspirin; Z79.899 Other long term (current) drug therapy

== ENCOUNTER → 2021-08-01 | Outpatient (CLI) | payer MEDICARE, MEDICAID | LOC: M PAIN 11:00 | PROVIDERS: ATTEND Nurse Practitioner Family | DX: M51.16 Intervertebral disc disorders with radiculopathy, lumbar region (principal); G89.29 Other chronic pain; E55.9 Vitamin D deficiency, unspecified; J44.9 Chronic obstructive pulmonary disease, unspecified; F17.210 Nicotine dependence, cigarettes, uncomplicated; Z86.59 Personal history of other mental and behavioral disorders; Z88.0 Allergy status to penicillin; Z88.8 Allergy status to other drugs, medicaments and biological substances; Z79.82 Long term (current) use of aspirin; Z79.899 Other long term (current) drug therapy ==

== ENCOUNTER → 2021-11-26 | Outpatient (CLI) | payer MEDICARE, MEDICAID ==
[~2021-11-26] MED LIST changes: +NYST-13 TOP; -NYST10CR TOP
== END ==
LOC: M LABSMTC 09:57
PROVIDERS: ATTEND Anesthesiology
DX: Z01.812 Encounter for preprocedural laboratory examination (principal); Z11.52 Encounter for screening for COVID-19

== ENCOUNTER → 2021-11-30 | Outpatient (CLI) | payer MEDICARE ==
[~2021-11-30] MED LIST changes: +BUPIVACAINE HCL 0.25% 30ML VIAL As Ordered ONE; -BUSP-29 PO; +BUSP10TA79 PO; +ISOVUE-M 300 61% 15ML VIAL As Ordered ONE; +LIDOCAINE 1% SDV 30ML VIAL As Ordered ONE; +ONDANSETRON 4MG ORAL DISINTEGRATING TAB As Ordered ONE; +dexameTHASONE 10MG/1ML VIAL PRES.FREE (J1100 PER 1MG) As Ordered ONE; +diazePAM 5MG TABLET As Ordered ONE; +diphenhydrAMINE 25MG CAP As Ordered ONE; +oxyCODONE 5MG TAB As Ordered ONE
== END ==
LOC: M PAIN 14:00
PROVIDERS: ATTEND Anesthesiology
DX: M51.16 Intervertebral disc disorders with radiculopathy, lumbar region (principal); E55.9 Vitamin D deficiency, unspecified; I10 Essential (primary) hypertension; J44.9 Chronic obstructive pulmonary disease, unspecified; F17.210 Nicotine dependence, cigarettes, uncomplicated; Z86.59 Personal history of other mental and behavioral disorders; Z88.0 Allergy status to penicillin; Z88.8 Allergy status to other drugs, medicaments and biological substances; Z79.82 Long term (current) use of aspirin; Z79.899 Other long term (current) drug therapy
CPT/HCPCS: 64483; J1100; Q9967

== ENCOUNTER → 2021-12-19 | Outpatient (CLI) | payer MEDICARE ==
[~2021-12-19] MED LIST changes: -BUPIVACAINE HCL 0.25% 30ML VIAL As Ordered ONE; -ISOVUE-M 300 61% 15ML VIAL As Ordered ONE; -LIDOCAINE 1% SDV 30ML VIAL As Ordered ONE; -ONDANSETRON 4MG ORAL DISINTEGRATING TAB As Ordered ONE; -dexameTHASONE 10MG/1ML VIAL PRES.FREE (J1100 PER 1MG) As Ordered ONE; -diazePAM 5MG TABLET As Ordered ONE; -diphenhydrAMINE 25MG CAP As Ordered ONE; -oxyCODONE 5MG TAB As Ordered ONE
== END ==
LOC: M PAIN 11:15
PROVIDERS: ATTEND Nurse Practitioner Family
DX: M51.16 Intervertebral disc disorders with radiculopathy, lumbar region (principal); G89.29 Other chronic pain; E55.9 Vitamin D deficiency, unspecified; I10 Essential (primary) hypertension; J44.9 Chronic obstructive pulmonary disease, unspecified; F17.210 Nicotine dependence, cigarettes, uncomplicated; Z86.59 Personal history of other mental and behavioral disorders; Z88.0 Allergy status to penicillin; Z88.8 Allergy status to other drugs, medicaments and biological substances; Z79.82 Long term (current) use of aspirin; Z79.899 Other long term (current) drug therapy

== ENCOUNTER → 2022-03-20 | Outpatient (CLI) | payer MEDICARE | LOC: M PAIN 09:15 | PROVIDERS: ATTEND Nurse Practitioner Family | DX: M51.16 Intervertebral disc disorders with radiculopathy, lumbar region (principal); G89.29 Other chronic pain; E55.9 Vitamin D deficiency, unspecified; I10 Essential (primary) hypertension; J44.9 Chronic obstructive pulmonary disease, unspecified; F17.210 Nicotine dependence, cigarettes, uncomplicated; Z86.59 Personal history of other mental and behavioral disorders; Z88.0 Allergy status to penicillin; Z88.8 Allergy status to other drugs, medicaments and biological substances; Z79.82 Long term (current) use of aspirin; Z79.899 Other long term (current) drug therapy ==

== ENCOUNTER → 2022-04-18 | Outpatient (CLI) | payer MEDICARE ==
[~2022-04-18] MED LIST changes: +MONT-5 PO; -SING10TA32 PO
== END ==
LOC: M RAD 16:44
PROVIDERS: ATTEND Physician Assistant
DX: R91.8 Other nonspecific abnormal finding of lung field (principal); J84.10 Pulmonary fibrosis, unspecified; F17.210 Nicotine dependence, cigarettes, uncomplicated

== ENCOUNTER → 2022-04-30 | Outpatient (CLI) | payer MEDICARE | LOC: M LABSMTC 09:52 | PROVIDERS: ATTEND Anesthesiology | DX: Z20.822 Contact with and (suspected) exposure to COVID-19 (principal) ==

== ENCOUNTER → 2022-05-04 | Outpatient (CLI) | payer MEDICARE ==
[~2022-05-04] MED LIST changes: +BUPIVACAINE HCL 0.25% 30ML VIAL As Ordered ONE; +ISOVUE-M 300 61% 15ML VIAL As Ordered ONE; +LIDOCAINE 1% SDV 30ML VIAL As Ordered ONE; +diazePAM 5MG TABLET As Ordered ONE; +oxyCODONE 5MG TAB As Ordered ONE
== END ==
LOC: M PAIN 09:15
PROVIDERS: ATTEND Anesthesiology
DX: M51.17 Intervertebral disc disorders with radiculopathy, lumbosacral region (principal); G89.29 Other chronic pain; E55.9 Vitamin D deficiency, unspecified; I10 Essential (primary) hypertension; J44.9 Chronic obstructive pulmonary disease, unspecified; F17.210 Nicotine dependence, cigarettes, uncomplicated; Z86.59 Personal history of other mental and behavioral disorders; Z88.0 Allergy status to penicillin; Z88.8 Allergy status to other drugs, medicaments and biological substances; Z79.82 Long term (current) use of aspirin; Z79.899 Other long term (current) drug therapy
CPT/HCPCS: 64483; J1100; Q9967

== ENCOUNTER → 2022-05-17 | Outpatient (CLI) | payer MEDICARE ==
[~2022-05-17] MED LIST changes: -BUPIVACAINE HCL 0.25% 30ML VIAL As Ordered ONE; -ISOVUE-M 300 61% 15ML VIAL As Ordered ONE; -LIDOCAINE 1% SDV 30ML VIAL As Ordered ONE; -diazePAM 5MG TABLET As Ordered ONE; -oxyCODONE 5MG TAB As Ordered ONE
== END ==
LOC: M PAIN 12:00
PROVIDERS: ATTEND Anesthesiology
DX: M51.16 Intervertebral disc disorders with radiculopathy, lumbar region (principal); M54.50 Low back pain, unspecified; G89.29 Other chronic pain; E55.9 Vitamin D deficiency, unspecified; I10 Essential (primary) hypertension; J44.9 Chronic obstructive pulmonary disease, unspecified; F17.210 Nicotine dependence, cigarettes, uncomplicated; Z86.59 Personal history of other mental and behavioral disorders; Z88.0 Allergy status to penicillin; Z88.8 Allergy status to other drugs, medicaments and biological substances; Z79.82 Long term (current) use of aspirin; Z79.899 Other long term (current) drug therapy

== ENCOUNTER → 2022-05-22 | Outpatient (CLI) | payer MEDICARE | LOC: M PAIN 14:45 | PROVIDERS: ATTEND Nurse Practitioner Family | DX: M51.16 Intervertebral disc disorders with radiculopathy, lumbar region (principal); M54.50 Low back pain, unspecified; G89.29 Other chronic pain; E55.9 Vitamin D deficiency, unspecified; I10 Essential (primary) hypertension; J44.9 Chronic obstructive pulmonary disease, unspecified; F17.210 Nicotine dependence, cigarettes, uncomplicated; Z86.59 Personal history of other mental and behavioral disorders; Z88.0 Allergy status to penicillin; Z88.8 Allergy status to other drugs, medicaments and biological substances; Z79.82 Long term (current) use of aspirin; Z79.899 Other long term (current) drug therapy ==

== ENCOUNTER → 2022-05-31 | Outpatient (CLI) | payer MEDICARE | LOC: M PAIN 15:30 | PROVIDERS: ATTEND Nurse Practitioner Family | DX: M51.16 Intervertebral disc disorders with radiculopathy, lumbar region (principal); G89.29 Other chronic pain; E55.9 Vitamin D deficiency, unspecified; I10 Essential (primary) hypertension; J44.9 Chronic obstructive pulmonary disease, unspecified; F17.210 Nicotine dependence, cigarettes, uncomplicated; Z86.59 Personal history of other mental and behavioral disorders; Z88.0 Allergy status to penicillin; Z88.8 Allergy status to other drugs, medicaments and biological substances; Z79.82 Long term (current) use of aspirin; Z79.899 Other long term (current) drug therapy ==

== ENCOUNTER → 2022-06-28 | Outpatient (CLI) | payer MEDICARE ==
[~2022-06-28] MED LIST changes: +CARI1TAB7 PO; +ISOVUE-M 300 61% 15ML VIAL As Ordered ONE; +LIDOCAINE 1% SDV 30ML VIAL As Ordered ONE; +PANT40TA29 PO; +RISP-7 PO; +TRAZ-252 PO; +diazePAM 5MG TABLET As Ordered ONE; +methylPREDNISolone SUSP 40MG/ML 1ML VIAL (DEPO MEDROL) As Ordered ONE; +oxyCODONE 5MG TAB As Ordered ONE
[2022-06-28 16:24] LABS: HEMOGLOBIN 13.6 g/dl (13.5-17.5); MEAN CORPUSCULAR HEMOGLOBIN 31.6 pg (27.0-33.0); PLATELET COUNT, AUTOMATED 189 10^3/uL (150-450); WHITE BLOOD COUNT 3.2 10^3/uL (4.0-10.0)
[2022-06-28 16:42] LABS: ALBUMIN 3.5 G/DL (3.2-5.2); ALKALINE PHOSPHATASE 96 U/L (46-116); ALT/SGPT 11 U/L (7.0-40); AST/SGOT < 8 U/L (<34); BILIRUBIN,TOTAL 0.5 MG/DL (0.3-1.2); BLOOD UREA NITROGEN 12 MG/DL (9-23); CALCIUM LEVEL 8.3 MG/DL (8.5-10.1); CARBON DIOXIDE LEVEL 30 MMOL/L (20-31); CHLORIDE LEVEL 105 MMOL/L (98-107); CHOLESTEROL LEVEL 145 MG/DL (<200); CHOLESTEROL RISK RATIO 4.32 (<5); CREATININE FOR GFR 1.04 MG/DL (0.70-1.30); GLOMERULAR FILTRATION RATE > 60.0 (>56); GLUCOSE, FASTING 92 MG/DL (60-100); HDL CHOLESTEROL 33.5 MG/DL (>40); LDL CHOLESTEROL 91.9 MG/DL (<100); NON-HDL-C 111.5 MG/DL; POTASSIUM SERUM 4.9 MMOL/L (3.5-5.1); SODIUM LEVEL 138 MMOL/L (136-145); TOTAL PROTEIN 6.5 G/DL (5.7-8.2); TRIGLYCERIDES LEVEL 98 MG/DL (<150)
[2022-06-28 16:44] LABS: FOLATE 6.5 NG/ML (>5.4); VITAMIN B12 LEVEL 332 PG/ML (211-911)
[2022-06-28 16:59] LABS: HEMOGLOBIN A1c 5.5 % (4.0-6.0)
== END ==
LOC: M PAIN 09:30
PROVIDERS: ATTEND Anesthesiology
DX: M51.16 Intervertebral disc disorders with radiculopathy, lumbar region (principal); G89.29 Other chronic pain; E55.9 Vitamin D deficiency, unspecified; I10 Essential (primary) hypertension; J44.9 Chronic obstructive pulmonary disease, unspecified; F17.210 Nicotine dependence, cigarettes, uncomplicated; Z86.59 Personal history of other mental and behavioral disorders; Z88.0 Allergy status to penicillin; Z88.8 Allergy status to other drugs, medicaments and biological substances; Z79.82 Long term (current) use of aspirin; Z79.899 Other long term (current) drug therapy

== ENCOUNTER 2022-06-30 11:37 | Inpatient (IN) | payer MEDICARE, OTHER ==
[~2022-06-30] VITALS: Ht 175.3 cm; Wt 59.0 kg
[~2022-06-30 11:37] MED LIST changes: -CARI1TAB7 PO; -ISOVUE-M 300 61% 15ML VIAL As Ordered ONE; -LIDOCAINE 1% SDV 30ML VIAL As Ordered ONE; -PANT40TA29 PO; -RISP-7 PO; -TRAZ-252 PO; -diazePAM 5MG TABLET As Ordered ONE; -methylPREDNISolone SUSP 40MG/ML 1ML VIAL (DEPO MEDROL) As Ordered ONE; -oxyCODONE 5MG TAB As Ordered ONE
[2022-06-30 12:28] LABS: HEMATOCRIT 37.8 % (42.0-52.0); HEMOGLOBIN 13.2 g/dl (13.5-17.5); MEAN CORPUSCULAR HEMOGLOBIN 31.9 pg (27.0-33.0); MEAN CORPUSCULAR HGB CONC 34.9 g/dl (32.0-36.5); MEAN CORPUSCULAR VOLUME 91.3 fl (80.0-96.0); PLATELET COUNT, AUTOMATED 221 10^3/uL (150-450); RED BLOOD COUNT 4.14 10^6/uL (4.30-6.10); WHITE BLOOD COUNT 4.9 10^3/uL (4.0-10.0)
[2022-06-30 12:34] LABS: AMPHETAMINES LEVEL URINE NEGATIVE (NEGATIVE); BARBITURATES URINE NEGATIVE (NEGATIVE); CANNABINOIDS URINE NEGATIVE (NEGATIVE); COCAINE METABOLITE URINE NEGATIVE (NEGATIVE); METHADONE URINE NEGATIVE (NEGATIVE); OPIATES URINE NEGATIVE (NEGATIVE); PHENCYCLIDINE URINE NEGATIVE (NEGATIVE)
[2022-06-30 12:43] LABS: BENZODIAZEPINES URINE POSITIVE (NEGATIVE)
[2022-06-30 12:54] LABS: ETHYL ALCOHOL (ETHANOL) < 0.003 % (0.000-0.010)
[2022-06-30 12:55] LABS: ACETAMINOPHEN LEVEL < 2.0 UG/ML (10.0-20.0); SALICYLATE LEVEL < 3.0 MG/DL (<30)
[2022-06-30 12:57] LABS: THYROID STIMULATING HORMONE 1.479 uIU/ML (0.55-4.78)
[2022-06-30 13:02] LABS: ALBUMIN 3.5 G/DL (3.2-5.2); ALKALINE PHOSPHATASE 92 U/L (46-116); ALT/SGPT 13 U/L (7.0-40); AST/SGOT 11 U/L (<34); BILIRUBIN,DIRECT 0.2 MG/DL (<0.4); BILIRUBIN,TOTAL 0.5 MG/DL (0.3-1.2); BLOOD UREA NITROGEN 15 MG/DL (9-23); CALCIUM LEVEL 8.5 MG/DL (8.5-10.1); CARBON DIOXIDE LEVEL 24 MMOL/L (20-31); CHLORIDE LEVEL 104 MMOL/L (98-107); GLOMERULAR FILTRATION RATE > 60.0 (>56); GLUCOSE, FASTING 136 MG/DL (60-100); POTASSIUM SERUM 3.9 MMOL/L (3.5-5.1); SODIUM LEVEL 136 MMOL/L (136-145); TOTAL PROTEIN 6.3 G/DL (5.7-8.2)
[2022-06-30] MEDS ORDERED: LOSA50TA28 PO (17:47)
[2022-06-30] MEDS ORDERED: PANT40TA29 PO (17:47)
[2022-06-30] MEDS ORDERED: CARI1TAB7 PO (17:47)
[2022-06-30] MEDS ORDERED: GABA-282 PO (17:47)
[2022-06-30] MEDS ORDERED: HOME MED LIST COMPLETE! XX SCH (17:50)
[2022-07-01] MEDS ORDERED: ALBUTEROL 90 MCG/ACT 8GM HFA INHALER INH PRN (10:55)
[2022-07-01] MEDS: GABAPENTIN 300 MG CAP PO SCH (16:00)
[2022-07-01] MEDS ORDERED: carisoprodoL 350 MG TAB PO SCH (21:00)
[2022-07-02] MEDS: GABAPENTIN 300 MG CAP PO SCH ×4 (00:06→21:31)
[2022-07-02] MEDS: PANTOPRAZOLE 40MG TAB (PROTONIX) PO SCH (08:59)
[2022-07-02] MEDS: LOSARTAN 50MG TABLET PO SCH (08:59)
[2022-07-02] MEDS: ASPIRIN 81MG ENTERIC TABLET PO SCH (08:59)
[2022-07-02] MEDS ORDERED: MAALOX 30 ML SUSP *UDC PO PRN (14:10)
[2022-07-02] MEDS ORDERED: ACETAMINOPHEN TAB 650MG DOSE (2X325MG) PO PRN (14:10)
[2022-07-02] MEDS ORDERED: MOM 30ML SUSPENSION UDC PO PRN (14:10)
[2022-07-02 16:48] VITALS: BP 120/72
[2022-07-02] MEDS: carisoprodoL 350 MG TAB PO SCH (21:31)
[2022-07-03 06:47] VITALS: BP 94/60
[2022-07-03] MEDS: GABAPENTIN 300 MG CAP PO SCH ×3 (10:37→21:54)
[2022-07-03] MEDS: PANTOPRAZOLE 40MG TAB (PROTONIX) PO SCH (10:37)
[2022-07-03] MEDS: ASPIRIN 81MG ENTERIC TABLET PO SCH (10:38)
[2022-07-03] MEDS: LOSARTAN 50MG TABLET PO SCH (10:39)
[2022-07-03] MEDS: risperiDONE 0.5 MG TAB PO SCH ×2 (12:03→21:54)
[2022-07-03 16:56] VITALS: BP 107/76
[2022-07-03] MEDS ORDERED: PARoxetine 20MG TABLET PO SCH (21:00)
[2022-07-03] MEDS: traZODone 50 MG TAB PO PRN (21:54)
[2022-07-03] MEDS: carisoprodoL 350 MG TAB PO SCH (21:54)
[2022-07-04 06:20] VITALS: BP 90/56
[2022-07-04] MEDS: LOSARTAN 50MG TABLET PO SCH (09:00)
[2022-07-04] MEDS: GABAPENTIN 300 MG CAP PO SCH ×3 (09:14→21:42)
[2022-07-04] MEDS: ASPIRIN 81MG ENTERIC TABLET PO SCH (09:14)
[2022-07-04] MEDS: risperiDONE 0.5 MG TAB PO SCH ×2 (09:14→21:42)
[2022-07-04] MEDS: PANTOPRAZOLE 40MG TAB (PROTONIX) PO SCH (09:14)
[2022-07-04] MEDS: PARoxetine 20MG TABLET PO SCH (09:14)
[2022-07-04 10:53] VITALS: BP 114/83
[2022-07-04 16:40] VITALS: BP 113/70
[2022-07-04] MEDS: carisoprodoL 350 MG TAB PO SCH (21:42)
[2022-07-04] MEDS: traZODone 50 MG TAB PO PRN (21:42)
[2022-07-05 06:24] VITALS: BP 135/89
[2022-07-05 09:36] VITALS: BP 150/86
[2022-07-05] MEDS: PANTOPRAZOLE 40MG TAB (PROTONIX) PO SCH (09:52)
[2022-07-05] MEDS: risperiDONE 0.5 MG TAB PO SCH ×2 (09:52→21:09)
[2022-07-05] MEDS: LOSARTAN 50MG TABLET PO SCH (09:52)
[2022-07-05] MEDS: PARoxetine 20MG TABLET PO SCH (09:52)
[2022-07-05] MEDS: GABAPENTIN 300 MG CAP PO SCH ×3 (09:52→21:09)
[2022-07-05] MEDS: ASPIRIN 81MG ENTERIC TABLET PO SCH (09:52)
[2022-07-05] MEDS: carisoprodoL 350 MG TAB PO SCH (21:09)
[2022-07-05] MEDS: traZODone 50 MG TAB PO PRN (21:09)
[2022-07-05 23:36] VITALS: BP 135/91
[2022-07-06 06:44] VITALS: BP 139/90
[2022-07-06 08:24] VITALS: BP 139/90
[2022-07-06] MEDS: LOSARTAN 50MG TABLET PO SCH (08:24)
[2022-07-06] MEDS: PANTOPRAZOLE 40MG TAB (PROTONIX) PO SCH (08:25)
[2022-07-06] MEDS: PARoxetine 20MG TABLET PO SCH (08:25)
[2022-07-06] MEDS: ASPIRIN 81MG ENTERIC TABLET PO SCH (08:25)
[2022-07-06] MEDS: GABAPENTIN 300 MG CAP PO SCH (08:25)
[2022-07-06] MEDS: risperiDONE 0.5 MG TAB PO SCH (08:25)
[2022-07-06] MEDS ORDERED: RISP-7 PO (11:26)
[2022-07-06] MEDS ORDERED: PARO20TA3 PO (11:26)
[2022-07-06] MEDS ORDERED: TRAZ-252 PO (11:26)
== END 2022-07-06 13:34 | disposition home or self-care (01) | DRG 885 ==
LOC: M ED 11:37 → M ED INP 07-02 14:08 → M PSY 07-02 16:14
PROVIDERS: ADMIT Psychiatry & Neurology Psychiatry; ATTEND Psychiatry & Neurology Psychiatry
DX: F29 Unspecified psychosis not due to a substance or known physiological condition (principal); U07.1 COVID-19; G62.9 Polyneuropathy, unspecified; F41.1 Generalized anxiety disorder; E78.5 Hyperlipidemia, unspecified; F17.200 Nicotine dependence, unspecified, uncomplicated; M54.50 Low back pain, unspecified; G89.29 Other chronic pain; I10 Essential (primary) hypertension; K21.9 Gastro-esophageal reflux disease without esophagitis; J44.9 Chronic obstructive pulmonary disease, unspecified; D53.9 Nutritional anemia, unspecified; R91.8 Other nonspecific abnormal finding of lung field; E55.9 Vitamin D deficiency, unspecified; F32.A Depression, unspecified; Z79.82 Long term (current) use of aspirin; Z79.899 Other long term (current) drug therapy; Z88.0 Allergy status to penicillin

== ENCOUNTER → 2022-07-12 | Outpatient (CLI) | payer MEDICARE ==
[~2022-07-12] MED LIST changes: +CARI1TAB7 PO; +PANT40TA29 PO; +RISP-7 PO; +TRAZ-252 PO
== END ==
LOC: M PAIN 11:30
PROVIDERS: ATTEND Nurse Practitioner Family
DX: M79.10 Myalgia, unspecified site (principal); M51.16 Intervertebral disc disorders with radiculopathy, lumbar region; G89.29 Other chronic pain; E55.9 Vitamin D deficiency, unspecified; I10 Essential (primary) hypertension; J44.9 Chronic obstructive pulmonary disease, unspecified; F17.210 Nicotine dependence, cigarettes, uncomplicated; Z86.59 Personal history of other mental and behavioral disorders; Z88.0 Allergy status to penicillin; Z88.8 Allergy status to other drugs, medicaments and biological substances; Z79.82 Long term (current) use of aspirin; Z79.899 Other long term (current) drug therapy

== ENCOUNTER → 2022-09-04 | Outpatient (CLI) | payer MEDICARE ==
[~2022-09-04] MED LIST changes: -AMIT25TA17 PO; +AMIT25TA19 PO; +SENN-111 PO; -SENN18TA PO
== END ==
LOC: M PAIN 10:15
PROVIDERS: ATTEND Nurse Practitioner Family
DX: M79.10 Myalgia, unspecified site (principal); G89.29 Other chronic pain; E55.9 Vitamin D deficiency, unspecified; I10 Essential (primary) hypertension; J44.9 Chronic obstructive pulmonary disease, unspecified; F17.210 Nicotine dependence, cigarettes, uncomplicated; Z86.59 Personal history of other mental and behavioral disorders; Z88.0 Allergy status to penicillin; Z88.8 Allergy status to other drugs, medicaments and biological substances; Z79.82 Long term (current) use of aspirin; Z79.899 Other long term (current) drug therapy

== ENCOUNTER → 2022-09-06 | Outpatient (CLI) | payer MEDICARE ==
[~2022-09-06] MED LIST changes: +AMIT25TA17 PO; -AMIT25TA19 PO; +TRIAMCINOLONE ACETONIDE SUSP 40MG/ML 1ML VIAL As Ordered ONE; +diazePAM 5MG TABLET As Ordered ONE; +oxyCODONE 5MG TAB As Ordered ONE
== END ==
LOC: M PAIN 13:00
PROVIDERS: ATTEND Anesthesiology
DX: M79.18 Myalgia, other site (principal); M54.50 Low back pain, unspecified; G89.29 Other chronic pain; D53.9 Nutritional anemia, unspecified; E55.9 Vitamin D deficiency, unspecified; F32.A Depression, unspecified; I10 Essential (primary) hypertension; J44.9 Chronic obstructive pulmonary disease, unspecified; F41.1 Generalized anxiety disorder; F17.210 Nicotine dependence, cigarettes, uncomplicated; Z79.82 Long term (current) use of aspirin; Z79.899 Other long term (current) drug therapy; Z88.0 Allergy status to penicillin; Z88.8 Allergy status to other drugs, medicaments and biological substances
CPT/HCPCS: 20552; J0665; J3301

== ENCOUNTER 2022-10-28 16:36 | Emergency (ER) | payer MEDICARE, MEDICAID ==
[~2022-10-28 16:36] MED LIST changes: -AMIT25TA17 PO; +AMIT25TA19 PO; -TRIAMCINOLONE ACETONIDE SUSP 40MG/ML 1ML VIAL As Ordered ONE; -diazePAM 5MG TABLET As Ordered ONE; -oxyCODONE 5MG TAB As Ordered ONE
[2022-10-28 17:40] LABS: BASO % 0.4 % (0.0-1.0); EOS % 0.2 % (0.0-3.0); HEMATOCRIT 36.5 % (42.0-52.0); HEMOGLOBIN 12.6 g/dl (13.5-17.5); LYMPH # 0.7 10^3/uL (1.5-5.0); LYMPH % 12.8 % (24.0-44.0); MEAN CORPUSCULAR HEMOGLOBIN 31.9 pg (27.0-33.0); MEAN CORPUSCULAR HGB CONC 34.5 g/dl (32.0-36.5); MEAN CORPUSCULAR VOLUME 92.4 fl (80.0-96.0); MONO # 0.3 10^3/uL (0.0-0.8); MONO % 5.8 % (2.0-8.0); NEUTROPHILS # 4.6 10^3/uL (1.5-8.5); NEUTROPHILS % 80.4 % (36.0-66.0); PLATELET COUNT, AUTOMATED 167 10^3/uL (150-450); RED BLOOD COUNT 3.95 10^6/uL (4.30-6.10); WHITE BLOOD COUNT 5.7 10^3/uL (4.0-10.0)
[2022-10-28 18:08] LABS: ETHYL ALCOHOL (ETHANOL) < 0.003 % (0.000-0.010)
[2022-10-28 18:09] LABS: ACETAMINOPHEN LEVEL < 2.0 UG/ML (10.0-20.0); ALBUMIN 3.6 G/DL (3.2-5.2); ALKALINE PHOSPHATASE 76 U/L (46-116); ALT/SGPT 14 U/L (7.0-40); AST/SGOT 9 U/L (<34); BILIRUBIN,DIRECT 0.1 MG/DL (<0.4); BILIRUBIN,TOTAL 0.3 MG/DL (0.3-1.2); BLOOD UREA NITROGEN 12 MG/DL (9-23); CALCIUM LEVEL 8.8 MG/DL (8.5-10.1); CARBON DIOXIDE LEVEL 26 MMOL/L (20-31); CHLORIDE LEVEL 105 MMOL/L (98-107); CREATININE FOR GFR 0.97 MG/DL (0.70-1.30); GLOMERULAR FILTRATION RATE > 60.0 (>56); GLUCOSE, FASTING 125 MG/DL (60-100); POTASSIUM SERUM 3.8 MMOL/L (3.5-5.1); SALICYLATE LEVEL < 3.0 MG/DL (<30); SODIUM LEVEL 138 MMOL/L (136-145); TOTAL PROTEIN 6.2 G/DL (5.7-8.2)
[2022-10-28 18:11] LABS: THYROID STIMULATING HORMONE 0.701 uIU/ML (0.55-4.78)
[2022-10-28 18:27] LABS: OSMOLALITY SERUM 282 MOSM/KG (275-295)
[2022-10-28 19:37] LABS: RSV AMPLIFICATION NEGATIVE (NEGATIVE)
[2022-10-28 19:41] LABS: AMPHETAMINES LEVEL URINE NEGATIVE (NEGATIVE); BARBITURATES URINE NEGATIVE (NEGATIVE); BENZODIAZEPINES URINE NEGATIVE (NEGATIVE); COCAINE METABOLITE URINE NEGATIVE (NEGATIVE); METHADONE URINE NEGATIVE (NEGATIVE); OPIATES URINE NEGATIVE (NEGATIVE)
[2022-10-28 19:42] LABS: CANNABINOIDS URINE NEGATIVE (NEGATIVE); PHENCYCLIDINE URINE NEGATIVE (NEGATIVE)
[2022-10-28] MEDS ORDERED: PARO20TA3 PO (22:36)
[2022-10-28] MEDS ORDERED: TRAZ1TAB10 PO (22:36)
[2022-10-28] MEDS ORDERED: RISP-7 PO (22:36)
[2022-10-28] MEDS ORDERED: HOME MED LIST COMPLETE! XX SCH (22:40)
[2022-10-28] MEDS ORDERED: ALBUTEROL 90 MCG/ACT 8GM HFA INHALER INH PRN (22:50)
[2022-10-28] MEDS ORDERED: traZODone 50 MG TAB PO PRN (22:50)
[2022-10-28] MEDS: GABAPENTIN 300 MG CAP PO SCH (23:38)
[2022-10-28] MEDS: risperiDONE 0.5 MG TAB PO SCH (23:38)
[2022-10-29] MEDS ORDERED: LOSARTAN 50MG TABLET PO SCH (09:00)
[2022-10-29] MEDS ORDERED: PANTOPRAZOLE 40MG TAB (PROTONIX) PO SCH (09:00)
[2022-10-29] MEDS ORDERED: ASPIRIN 81MG ENTERIC TABLET PO SCH (09:00)
[2022-10-29] MEDS ORDERED: PARoxetine 20MG TABLET PO SCH (09:00)
[2022-10-29] MEDS: risperiDONE 0.5 MG TAB PO SCH (09:07)
[2022-10-29] MEDS: GABAPENTIN 300 MG CAP PO SCH ×2 (09:08→16:00)
[2022-10-29 17:56] VITALS: BP 127/97; TEMP 97.5; O2SAT 100
== END 2022-10-29 18:35 | disposition home or self-care (01) ==
LOC: M ED 16:36
DX: F03.90 Unspecified dementia, unspecified severity, without behavioral disturbance, psychotic disturbance, mood disturbance, and anxiety (principal); M54.50 Low back pain, unspecified; F17.200 Nicotine dependence, unspecified, uncomplicated; F10.10 Alcohol abuse, uncomplicated; Z79.52 Long term (current) use of systemic steroids; Z79.82 Long term (current) use of aspirin; Z79.899 Other long term (current) drug therapy

== ENCOUNTER → 2023-04-12 | Outpatient (REF) | payer MEDICARE ==
[~2023-04-12] MED LIST changes: -ASPI-161 PO; +ASPI-615 PO; -RISP-7 PO; +RISP0.5T82 PO; +TRAZ1TAB10 PO
[2023-04-12 17:22] LABS: BASO % 0.6 % (0.0-1.0); EOS # 0.1 10^3/uL (0.0-0.5); EOS % 1.1 % (0.0-3.0); HEMOGLOBIN 13.8 g/dl (13.5-17.5); LYMPH # 1.3 10^3/uL (1.5-5.0); LYMPH % 28.1 % (24.0-44.0); MEAN CORPUSCULAR HEMOGLOBIN 32.5 pg (27.0-33.0); MEAN CORPUSCULAR HGB CONC 34.5 g/dl (32.0-36.5); MEAN CORPUSCULAR VOLUME 94.3 fl (80.0-96.0); MONO # 0.4 10^3/uL (0.0-0.8); MONO % 8.9 % (2.0-8.0); NEUTROPHILS # 2.8 10^3/uL (1.5-8.5); NEUTROPHILS % 61.1 % (36.0-66.0); PLATELET COUNT, AUTOMATED 198 10^3/uL (150-450); RED BLOOD COUNT 4.24 10^6/uL (4.30-6.10); WHITE BLOOD COUNT 4.6 10^3/uL (4.0-10.0)
[2023-04-12 17:40] LABS: ALBUMIN 3.6 G/DL (3.2-5.2); ALKALINE PHOSPHATASE 99 U/L (46-116); ALT/SGPT 19 U/L (7.0-40); AST/SGOT 13 U/L (<34); BILIRUBIN,TOTAL 0.2 MG/DL (0.3-1.2); BLOOD UREA NITROGEN 22 MG/DL (9-23); CALCIUM LEVEL 8.7 MG/DL (8.5-10.1); CARBON DIOXIDE LEVEL 30 MMOL/L (20-31); CHLORIDE LEVEL 110 MMOL/L (98-107); CHOLESTEROL LEVEL 165 MG/DL (<200); CREATININE FOR GFR 1.16 MG/DL (0.70-1.30); GLOMERULAR FILTRATION RATE > 60.0 (>56); GLUCOSE, FASTING 64 MG/DL (60-100); HDL CHOLESTEROL 41.2 MG/DL (>40); LDL CHOLESTEROL 92.2 MG/DL (<100); NON-HDL-C 123.8 MG/DL; POTASSIUM SERUM 4.3 MMOL/L (3.5-5.1); SODIUM LEVEL 141 MMOL/L (136-145); TOTAL PROTEIN 6.6 G/DL (5.7-8.2); TRIGLYCERIDES LEVEL 158 MG/DL (<150)
[2023-04-12 17:41] LABS: THYROID STIMULATING HORMONE 1.948 uIU/ML (0.55-4.78); TOTAL 25(OH) VITAMIN D 21.3 NG/ML (20.0-100.0)
== END ==
LOC: M SFHCADAM 13:41
PROVIDERS: ATTEND Physician Assistant
DX: I10 Essential (primary) hypertension (principal); E78.5 Hyperlipidemia, unspecified; E53.8 Deficiency of other specified B group vitamins; F32.3 Major depressive disorder, single episode, severe with psychotic features; Z79.899 Other long term (current) drug therapy

== ENCOUNTER → 2023-04-25 | Outpatient (CLI) | payer MEDICARE | LOC: M PAIN 16:00 | PROVIDERS: ATTEND Nurse Practitioner Family | DX: M51.16 Intervertebral disc disorders with radiculopathy, lumbar region (principal); F17.200 Nicotine dependence, unspecified, uncomplicated; I10 Essential (primary) hypertension; Z79.82 Long term (current) use of aspirin; Z79.891 Long term (current) use of opiate analgesic; Z79.899 Other long term (current) drug therapy ==

== ENCOUNTER → 2023-05-31 | Outpatient (CLI) | payer MEDICARE | LOC: M RAD 12:21 | PROVIDERS: ATTEND Nurse Practitioner Family | DX: M51.16 Intervertebral disc disorders with radiculopathy, lumbar region (principal) ==

== ENCOUNTER → 2023-07-04 | Outpatient (CLI) | payer MEDICARE ==
[~2023-07-04] MED LIST changes: +FLUO-290 PO; -FLUO10CA18 PO
== END ==
LOC: M PAIN 15:30
PROVIDERS: ATTEND Nurse Practitioner Family
DX: M51.16 Intervertebral disc disorders with radiculopathy, lumbar region (principal); F17.210 Nicotine dependence, cigarettes, uncomplicated; E78.5 Hyperlipidemia, unspecified; E55.9 Vitamin D deficiency, unspecified; I10 Essential (primary) hypertension; Z79.82 Long term (current) use of aspirin; Z79.899 Other long term (current) drug therapy; Z88.0 Allergy status to penicillin; Z88.1 Allergy status to other antibiotic agents; Z88.8 Allergy status to other drugs, medicaments and biological substances

== ENCOUNTER → 2023-11-07 | Outpatient (CLI) | payer MEDICARE ==
[~2023-11-07] MED LIST changes: +GABA-1172 PO; -GABA-282 PO; -SENN-111 PO; +SENN-165 PO
== END ==
LOC: M PAIN 17:00
PROVIDERS: ATTEND Nurse Practitioner Family
DX: M51.16 Intervertebral disc disorders with radiculopathy, lumbar region (principal); G89.29 Other chronic pain; F17.210 Nicotine dependence, cigarettes, uncomplicated; Z79.82 Long term (current) use of aspirin; Z79.899 Other long term (current) drug therapy; Z88.0 Allergy status to penicillin; Z88.8 Allergy status to other drugs, medicaments and biological substances

== ENCOUNTER → 2024-03-26 | Outpatient (CLI) | payer MEDICARE ==
[~2024-03-26] MED LIST changes: +CARI-555; +CARI-555 PO; -CARI1TAB7; -CARI1TAB7 PO
== END ==
LOC: M PAIN 10:45
PROVIDERS: ATTEND Nurse Practitioner Family
DX: M51.16 Intervertebral disc disorders with radiculopathy, lumbar region (principal); G89.29 Other chronic pain; I10 Essential (primary) hypertension; J44.9 Chronic obstructive pulmonary disease, unspecified; F17.210 Nicotine dependence, cigarettes, uncomplicated; Z79.82 Long term (current) use of aspirin; Z79.899 Other long term (current) drug therapy; Z88.0 Allergy status to penicillin; Z88.8 Allergy status to other drugs, medicaments and biological substances

== ENCOUNTER → 2024-04-08 | Outpatient (CLI) | payer MEDICARE | LOC: M ADAMS 10:59 | PROVIDERS: ATTEND Physician Assistant | DX: J43.9 Emphysema, unspecified (principal); J20.9 Acute bronchitis, unspecified ==

== ENCOUNTER → 2024-04-08 | Outpatient (REF) | payer MEDICARE ==
[2024-04-08 15:18] LABS: HEMATOCRIT 42.5 % (42.0-52.0); HEMOGLOBIN 14.3 g/dl (13.5-17.5); MEAN CORPUSCULAR HEMOGLOBIN 31.4 pg (27.0-33.0); MEAN CORPUSCULAR HGB CONC 33.6 g/dl (32.0-36.5); MEAN CORPUSCULAR VOLUME 93.2 fl (80.0-96.0); PLATELET COUNT, AUTOMATED 186 10^3/uL (150-450); RED BLOOD COUNT 4.56 10^6/uL (4.30-6.10); WHITE BLOOD COUNT 6.6 10^3/uL (4.0-10.0)
[2024-04-08 15:40] LABS: ALBUMIN 3.6 G/DL (3.2-5.2); ALKALINE PHOSPHATASE 100 U/L (40-129); ALT/SGPT 26 U/L (7.0-40); AST/SGOT 23 U/L (<34); BILIRUBIN,TOTAL 0.5 MG/DL (0.3-1.2); BLOOD UREA NITROGEN 16 MG/DL (9-23); CALCIUM LEVEL 8.7 MG/DL (8.3-10.6); CARBON DIOXIDE LEVEL 28 MMOL/L (20-31); CHLORIDE LEVEL 103 MMOL/L (98-107); CHOLESTEROL LEVEL 162 MG/DL (<200); CHOLESTEROL RISK RATIO 3.94 (<5); CREATININE FOR GFR 0.96 MG/DL (0.70-1.30); GLOMERULAR FILTRATION RATE > 60.0 (>49); GLUCOSE, FASTING 94 MG/DL (74-106); HDL CHOLESTEROL 41.1 MG/DL (>40); LDL CHOLESTEROL 103.7 MG/DL (<100); NON-HDL-C 120.9 MG/DL; POTASSIUM SERUM 4.1 MMOL/L (3.5-5.1); PSA SCREENING 0.91 NG/ML (< 4.00); SODIUM LEVEL 139 MMOL/L (136-145); TOTAL PROTEIN 7.2 G/DL (5.7-8.2); TRIGLYCERIDES LEVEL 86 MG/DL (<150)
[2024-04-08 16:20] LABS: HEMOGLOBIN A1c 5.7 % (4.0-6.0)
== END ==
LOC: M SFHCADAM 10:54
PROVIDERS: ATTEND Physician Assistant
DX: I10 Essential (primary) hypertension (principal); E78.5 Hyperlipidemia, unspecified; F17.210 Nicotine dependence, cigarettes, uncomplicated; Z12.5 Encounter for screening for malignant neoplasm of prostate; Z79.899 Other long term (current) drug therapy
CPT/HCPCS: 71046; 80053; 80061; 83036; 85027; G0103